=== PATIENT | female | born 1935 | race Caucasian/White ===

== ENCOUNTER → 2018-03-21 09:20 | Outpatient (CLI) | payer MEDICARE, OTHER, SELFPAY ==
--- NOTE | 2018-03-21 09:23 | RAD_ITS ---
STUDY: X-RAY CHEST REASON FOR EXAM: Female, 82 years old. TECHNIQUE: PA and lateral chest COMPARISON: 05/15/2017 FINDINGS: The lungs are clear and expanded. Normal cardiomediastinal silhouette, yamilka and pleural margins. No acute osseous or upper abdominal process. RAD/Chest PA and Lateral IMPRESSION: No acute cardiopulmonary process. Electronically Signed: Yosi Lemon, at 17:26 EDT Tel , Service support ,
== END ==
PROVIDERS: Family Provider Internal Medicine; PCP Internal Medicine; Visit Provider Internal Medicine Cardiovascular Disease
DX: R06.02 Shortness of breath (principal)
CPT/HCPCS: 71046

== ENCOUNTER → 2018-04-06 06:21 | Outpatient (CLI) | payer MEDICARE, OTHER, SELFPAY ==
--- NOTE | 2018-04-06 20:49 | STRESSREP ---
Stress Test Report Date: 04/06/2018 Procedure: Pharmacologic stress nuclear imaging study Indications: Shortness of breath/dyspnea on exertion Consent: Per the patient Procedure: The patient underwent pharmacologic (Regadenoson) evaluation with a peak heart rate of 103 beats per minute (73 predicted maximal heart rate) and a peak blood pressure of 140/60 mmHg. The baseline ECG demonstrated normal sinus rhythm; right bundle branch block. The peak pharmacologic ECG demonstrated no obvious ECG changes. There were no cardiac dysrhythmias pretest, during pharmacologic infusion, or recovery. There was no complaint of chest discomfort during pharmacologic infusion or recovery. The examination was discontinued secondary to completion of protocol. Impression: 1. Pharmacologic (Regadenoson) evaluation 2. Peak pharmacologic ECG with no obvious ECG changes. 3. There were no cardiac dysrhythmias pretest, during pharmacologic infusion, or recovery 4. Nuclear images pending Myocardial perfusion imaging study: Technique: The patient was injected with 11.6 millicuries of technetium 99m Cardiolite and subsequently rest SPECT Cardiolite nuclear imaging was obtained in the horizontal long, vertical long, and short axis views. The patient underwent pharmacologic (Regadenoson) evaluation with a peak heart rate of 103 beats per minute (73 % percent predicted maximal heart rate) and a peak blood pressure of 140/60 mmHg. The patient was injected with 33.7 millicuries of technetium 99m Cardiolite and subsequently stress SPECT Cardiolite nuclear imaging was obtained in the horizontal long, vertical long, and short axis views. A gated Cardiolite study at peak stress was obtained. Interpretation: Rest and stress SPECT Cardiolite nuclear imaging status post realignment, normalization, and attenuation correction demonstrate relative uniform tracer uptake and myocardial perfusion appearing within normal limits. There is end systolic thickening and brightening. The gated Cardiolite study demonstrates myocardial thickening and inward wall motion. The reported LVEF is 77 %. Impression: 1. Rest and stress SPECT Cardiolite nuclear imaging demonstrate relative uniform tracer uptake and myocardial perfusion appearing within normal limits. 2. The gated Cardiolite study reports an LVEF of 77 %. This note was generated with [employer] software. It may contain incorrect words, spelling, and punctuation that were not noted in checking the note before signing.
== END ==
PROVIDERS: Family Provider Internal Medicine; PCP Internal Medicine; Visit Provider Internal Medicine Cardiovascular Disease
DX: R06.02 Shortness of breath (principal)
CPT/HCPCS: 78452; 93017; A9500; A4216; J2785

== ENCOUNTER → 2018-10-18 | Outpatient (CLI) | payer MEDICARE, OTHER, SELFPAY ==
[2018-10-09 09:48] VITALS: BMI 29.8
--- NOTE | 2018-10-18 09:47 | CDU_ITS ---
Reason For Study: bruit Rt. Velocities/BP Lt. Velocities/BP Prox CCA 77.3/16.0 cm/sec. Prox CCA 60.5/16.3 cm/sec. Mid CCA 57.8/13.4 cm/sec. Mid CCA 53.2/15.1 cm/sec. Dist CCA 48.6/13.4 cm/sec. Dist CCA 59.3/12.6 cm/sec. Prox ICA 141.2/22.5 cm/sec. Prox ICA 137.5/27.9 cm/sec. Mid ICA 139.4/20.6 cm/sec. Mid ICA 110.1/26.1 cm/sec. Dist ICA 143.0/33.4 cm/sec. Dist ICA 88.2/24.3 cm/sec. Rt. ICA/CCA = 2.5. Lt. ICA/CCA = 2.6. Prox ECA 111.2/9.5 cm/sec. Prox ECA 148.5/15.2 cm/sec. Rt. Vert. 65.4/17.6 cm/sec. Lt. Vert. 42.8/11.6 cm/sec. Right Extracranial There is heterogeneous, irregular atherosclerotic plaque noted in the right common carotid artery. There is heterogeneous, irregular atherosclerotic plaque noted in the right internal carotid artery. There is heterogeneous, irregular atherosclerotic plaque noted in the right external carotid artery. Antegrade flow is noted in the right vertebral artery. Left Extracranial There is heterogeneous, irregular atherosclerotic plaque noted in the left common carotid artery. There is heterogeneous, irregular atherosclerotic plaque noted in the left internal carotid artery. There is heterogeneous, irregular atherosclerotic plaque noted in the left external carotid artery. Antegrade flow is noted in the left vertebral artery. Procedure Carotid Duplex [id number]. The exam was diagnostic. Exam performed in department. Interpretation Summary Irregular calcific plague right common carotid, proximal internal and external carotids. 50-69% stenosis right internal carotid <50% stenosis right external carotid Irregular calcific plague left common carotid, internal carotid and external carotids. 50-69% stenosis left internal carotid <50% stenosis left external carotid Patent and antegrade vertebrals bilaterally Ordering Physician: Swapna Smith Performed By: Philip Gonzales RVT
== END | disposition home or self-care (01) ==
LOC: CVS 09:46
PROVIDERS: Family Provider Internal Medicine; PCP Internal Medicine; Referring Provider Physician Assistant Medical; Visit Provider Physician Assistant Medical
DX: R42 Dizziness and giddiness (principal)
CPT/HCPCS: 93880

== ENCOUNTER → 2018-11-21 | Outpatient (CLI) | payer MEDICARE, OTHER, SELFPAY ==
[2018-11-21 09:46] VITALS: BMI 29.6
[2018-11-21 12:10] LABS: Anion Gap 5 (5-15); BUN 25 mg/dL (7-18); BUN/Creat Ratio 19.4 RATIO (10-20); Calcium,Total 9.4 mg/dL (8.5-10.1); Chloride 107 mmol/L (98-107); Creatinine, Serum 1.29 mg/dL (0.55-1.02); EST Glomerular Filtration Rate 42 mL/min (>60); Est Glom Filt Rate - Afr Amer 51 mL/min (>60); Glucose 115 mg/dL (74-106); Magnesium 1.8 mg/dL (1.6-2.6); Potassium 3.9 mmol/L (3.5-5.1); Sodium Level 138 mmol/L (136-145)
== END | disposition home or self-care (01) ==
LOC: LAB 10:24
PROVIDERS: Family Provider Internal Medicine; PCP Internal Medicine; Referring Provider Physician Assistant Medical; Visit Provider Physician Assistant Medical
DX: I10 Essential (primary) hypertension (principal)
CPT/HCPCS: 36415; 80048; 83735

== ENCOUNTER 2019-03-21 14:00 | Outpatient (RCR) | payer MEDICARE, OTHER, SELFPAY ==
[2019-01-30 07:15] VITALS: BMI 29.4
--- NOTE | 2019-02-07 15:46 | HP.PTEVAL ---
Patient's Visit Information DICK ARTIS is a 83 year old F referred to Physical Therapy by INDIRA Chamorro with a diagnosis of MUSCLE SPASMS. Date of Evaluation: 02/07/19 Physical Therapist: Eric Page, PT, Cert MDT, OCS - Visit Plan Frequency: 2x /Week Duration: 4 Weeks Plan: PT INTERVENTIONS MODALTIES ,MANUAL THERAPY CERVICAL TRACTION, CERVICAL POSTURAL EX'S , - Subjective Findings: This 83 y/o female presents to physical therapy with muscle spasms. Patient developed left arm pain and pins/needles/parathsia about 1 week. Patient had no predisposing factors.Pateint symptoms located left shoulder to hand. Patient also has noticed weakness right shoulder unable to lift coffe cup.Aggravating factors looking up ,lifting heavy ,night. Pateint symptoms affect sleeping. Patient alleviating factors CP. Patient seen PA at urgent care. recommended PT . Plan to see family DR next week. Denies SOLORIO/dizziness/nausea/tinnitus. Patei nt has no TX. Patient has no trauma. Patient symptoms in cervical and arms affects QOL and function at home. SOCIAL: . VOCATION: retired - Pain Left Neck Pain Intensity (Out of 10): N/A Left Shoulder Pain Intensity (Out of 10): 6 Pain Intensity Range: 10 Comment: to hand - Objective POSTURE: mild foward posture. PALPATION: unremarkable. NEURO: c/o pins/needles numbess in left arm,reflexes C5-6-7 3/3. AROM: shoulder flexion 90 degrees right ,abd 70 degrees otherwise WFL compared to left WNL. MMT: bicep/tricep 4/5 bilateral wrist flexors/extensor 4/5,deltoid/RTC 3/5 supraspinatous 3+/5. [employer] STRENGTH: 42# dynamotor. CERVICAL ROM: flexion min loss,rotation /lateral flexion mod ,extension mod increases symptoms - Special Tests C/S Radiculapathy - Left Upper limb tension test: Positive C/S Radiculapathy - Right Upper limb tension test: Negative C/S Radiculapathy - Left Spurlings: Positive C/S Radiculapathy - Right Spurlings: Negative C/S Radiculapathy - Left Cervical distraction: Negative C/S Radiculapathy - Right Cervical distraction: Negative C/S Radiculapathy - Left Relief test: Negative Sharp Clary: Negative Vertebral Artery Test: Negative Alar Ligament Test: Negative Cervical Sitting: Protrusion - Mechanical Response: No effect Cervical Sitting: Protrusion - Symptoms During Testing: Increases Cervical Sitting: Protrusion - Symptoms After Testing: Worse Comments:: left arm Cervical Sitting: Retraction - Mechanical Response: No effect Cervical Sitting: Retraction - Symptoms During Testing: Increases Cervical Sitting: Retraction - Symptoms After Testing: Worse Comments:: left arm Cervical Sitting: Retraction-Extension - Mechanical Response: No effect Cerv Sitting: Retraction-Extension - Symptoms During Testing: Increases Cerv Sitting: Retraction-Extension - Symptoms After Testing: Worse Comments:: left arm - Goals Goal 1:: Patient to be Independant with HEP. Goal Time Frame: 4-6 Weeks Goal 2:: Patient to improve posture for ADL'S with min limations Goal Time Frame: 4-6 Weeks Goal 3:: Patient to decrease cervical radicular symptoms by 50% or greater to improve function. Goal Time Frame: 4-6 Weeks Goal 4:: Patient to improve neck owsestry score by 5 points or greater to improve function. Goal Time Frame: 4-6 Weeks Goal 5:: Patient to improve cervical ROM for function of recovery Goal Time Frame: 4-6 Weeks - Rehabilitation Potential Physical Therapy Diagnosis: This patient has cervical radiculopathy with symptoms radiating in left arm with parathesia/pins/needles with extension affects sleeping ,also patient has right shoulder RTC /deltoid weakness with pain thus benifit from skilled PT. Rehabilitation Potential: Good - Anticipated Interventions Patient/Client Instruction: Educate patient on: Condition, Plan of Care For the Purpose of:: To decrease pain, To increase ROM, To improve muscle performance and motor function, To increase tolerance to activity/condition/position, To improve ability of physical actions for home/community/work/leisure, To improve health of tissue, To decrease soft tissue restriction, To increase flexibility/ROM, To reduce risk of recurrence, To improve ability to perform tasks related to life management Therapeutic Exercise to Include: Strength training, Postural training, Flexibilty training, Active ROM For the Purpose of:: To decrease pain, To increase ROM, To improve muscle performance and motor function, To increase tolerance to activity/condition/position, To improve performance and independence with ADL's, To decrease level of supervision to perform tasks, To improve ability of physical actions for home/community/work/leisure, To improve gait and locomotor functions, To improve health of tissue, To increase flexibility/ROM Manual Therapy Techniques to Include: Other Comment: TRACTION CERVICAL For the Purpose of:: To decrease pain, To increase ROM, To improve health of tissue, To decrease soft tissue restriction, To increase flexibility/ROM TENS: Yes IF ES: Yes Cryotherapy (ice pack, ice massage): Yes Thermo therapy (hot pack): Yes For the Purpose of:: To decrease pain, To increase ROM, To improve health of tissue, To decrease soft tissue restriction Thank you for the opportunity to evaluate your patient. For Medicare and Medicare HMO plans, please review the plan of care and approve it. It will need to be FAXED BACK to us at [phone] for Medicare purposes. For Medicare only, by signing this I certify the plan of care. Please let me know if there are questions or concerns regarding this plan of care. Physician Signature: Date:
--- NOTE | 2019-03-07 11:58 | HP.PTREVAL_ITS ---
INDIRA Chamorro, It has been my pleasure to treat DICK ARTIS over the last 8 visits for MUSCLE SPASMS. Please see the progress note below for an update on the physical therapy plan of care! Subjective: Doing better .seen wants to cont 2 more wks Objective/Function: POSTURE: mild foward posture. NEURO: c/o parathesia fingers absent today,reflexes C5-6-7 2/3. CERVICAL ROM: flexion min ,lateral flexion/rotation increase in arm to left. -ANR Plan Plan: PT INTERVENTIONS X/WK FOR 2WEEKS MODALTIES ,MANUAL THERAPY CERVICAL TRACTION, CERVICAL POSTURAL EX'S , Goals Goal 1:: Patient to be Independant with HEP. Goal Time Frame: 4-6 Weeks Goal Progress: Progressing Goal 2:: Patient to improve posture for ADL'S with min limations Goal Time Frame: 4-6 Weeks Goal Progress: Progressing Goal 3:: Patient to decrease cervical radicular symptoms by 50% or greater to improve function. Goal Time Frame: 4-6 Weeks Goal Progress: Progressing Goal 4:: Patient to improve neck owsestry score by 5 points or greater to improv e function. Goal Time Frame: 4-6 Weeks Goal 5:: Patient to improve cervical ROM for function of recovery Goal Time Frame: 4-6 Weeks Anticipated Interventions Patient/Client Instruction: Educate patient on: Condition, Plan of Care For the Purpose of:: To decrease pain, To increase ROM, To improve muscle performance and motor function, To increase tolerance to activity/condition/position, To improve ability of physical actions for home/community/work/leisure, To improve health of tissue, To decrease soft tissue restriction, To increase flexibility/ROM, To reduce risk of recurrence, To improve ability to perform tasks related to life management Therapeutic Exercise to Include: Strength training, Postural training, Flexibilty training, Active ROM For the Purpose of:: To decrease pain, To increase ROM, To improve muscle performance and motor function, To increase tolerance to activity/condition/position, To improve performance and independence with ADL's, To decrease level of supervision to perform tasks, To improve ability of physical actions for home/community/work/leisure, To improve gait and locomotor functions, To improve health of tissue, To increase flexibility/ROM Manual Therapy Techniques to Include: Other Comment: TRACTION CERVICAL For the Purpose of:: To decrease pain, To increase ROM, To improve health of tissue, To decrease soft tissue restriction, To increase flexibility/ROM TENS: Yes IF ES: Yes Cryotherapy (ice pack, ice massage): Yes Thermo therapy (hot pack): Yes For the Purpose of:: To decrease pain, To increase ROM, To improve health of tissue, To decrease soft tissue restriction Please do not hesitate to contact me at [phone] by phone or if you have questions or concerns regarding this new plan of care! Sincerely, Eric Pgae, PT, Cert MDT, OCS
--- NOTE | 2019-05-08 10:09 | HP.PTDCNRP_ITS ---
HP - Discharge Summary (1) - Patient Information DICK ARTIS was seen in my office for initial evaluation on 02/07/19. The following Plan of Care was established for this patient: Initial Frequency: 2x /Week Initial Duration: 4 Weeks - Anticipated Interventions Patient/Client Instruction: Educate patient on: Condition, Plan of Care For the Purpose of:: To decrease pain, To increase ROM, To improve muscle performance and motor function, To increase tolerance to activity/condition/position, To improve ability of physical actions for home/community/work/leisure, To improve health of tissue, To decrease soft tiss ue restriction, To increase flexibility/ROM, To reduce risk of recurrence, To improve ability to perform tasks related to life management Therapeutic Exercise to Include: Strength training, Postural training, Flexibilty training, Active ROM For the Purpose of:: To decrease pain, To increase ROM, To improve muscle performance and motor function, To increase tolerance to activity/condition/position, To improve performance and independence with ADL's, To decrease level of supervision to perform tasks, To improve ability of physical actions for home/community/work/leisure, To improve gait and locomotor functions, To improve health of tissue, To increase flexibility/ROM Manual Therapy Techniques to Include: Other Comment: TRACTION CERVICAL For the Purpose of:: To decrease pain, To increase ROM, To improve health of tissue, To decrease soft tissue restriction, To increase flexibility/ROM TENS: Yes IF ES: Yes Cryotherapy (ice pack, ice massage): Yes Thermo therapy (hot pack): Yes For the Purpose of:: To decrease pain, To increase ROM, To improve health of tissue, To decrease soft tissue restriction This patient was last seen in our office . Pertinent comments regarding their Physical therapy will appear below: Patient seen for PT for muscle spasms in cervical focusing on manual therapy STM/TRACTION ,MODALTIES AND POSTURALE X'S At this point I will be discontinuing this patient from physical therapy. I would be happy to see this patient again in the future if found appropriate by the physician. Thank you! Eirc Page, PT, Cert MDT, OCS
== END 2019-03-21 19:00 | disposition home or self-care (01) ==
LOC: PT 14:00
PROVIDERS: Family Provider Internal Medicine; PCP Internal Medicine; Referring Provider Physician Assistant Surgical; Visit Provider Physician Assistant Surgical
DX: M62.838 Other muscle spasm (principal)
CPT/HCPCS: 97012; 97035; 97140; 97162

== ENCOUNTER → 2020-01-28 09:38 | Outpatient (CLI) | payer MEDICARE, OTHER, SELFPAY ==
[2020-01-21 13:34] VITALS: BMI 30.2
[2020-01-28 10:52] LABS: AST(SGOT) 18 U/L (15-37); Alanine Aminotransfer ALT/SGPT 25 U/L (13-56); Albumin, Serum 3.5 g/dL (3.2-5.0); Alkaline Phosphatase 80 U/L (45-117); Bilirubin, Direct 0.13 mg/dL (0.00-0.30); Cholesterol 182 mg/dL (200); Globulin 3.5 g/dL (2.2-4.2); High Density Lipoprotein 41 mg/dL; Triglycerides 259 mg/dL; Very Low Density Lipoprotein 52 mg/dL (5-40)
== END ==
PROVIDERS: PCP Internal Medicine; Referring Provider Internal Medicine Cardiovascular Disease; Visit Provider Internal Medicine Cardiovascular Disease
DX: E78.00 Pure hypercholesterolemia, unspecified (principal)
CPT/HCPCS: 36415; 80061; 80076

== ENCOUNTER → 2020-02-12 14:34 | Outpatient (CLI) | payer MEDICARE, OTHER, SELFPAY ==
[2020-01-21 13:34] VITALS: BMI 30.2
[2020-02-12 14:51] LABS: Hematocrit 41.5 % (37-47); Hemoglobin 13.5 g/dL (12.0-15.0); Mean Corp Hgb Conc 32.5 g/dL (32-36); Mean Corpuscular Hgb 31.8 pg (27.0-32.0); Mean Corpuscular Volume 97.6 fL (81-99); Mean Platelet Vol. 10.2 fl (6.2-12.0); Platelet Count 215 K/mm3 (150-450); RBC Distribution Width CV 13.4 % (11.6-14.6); RBC Distribution Width SD 48.1 fl (35.1-43.9); Red Blood Count 4.25 M/mm3 (4.2-5.4); White Blood Count 7.5 K/mm3 (4.4-11.0)
[2020-02-12 15:31] LABS: BNP,B-Type NATRIURETIC PEPTIDE 86.7 pg/mL (0-100)
[2020-02-12 15:40] LABS: Anion Gap 7 (5-15); BUN 31 mg/dL (7-18); BUN/Creat Ratio 22.1 RATIO (10-20); Calcium,Total 8.9 mg/dL (8.5-10.1); Chloride 110 mmol/L (98-107); EST Glomerular Filtration Rate 38 mL/min (>60); Est Glom Filt Rate - Afr Amer 46 mL/min (>60); Glucose 129 mg/dL (74-106); Potassium 4.5 mmol/L (3.5-5.1); Sodium Level 141 mmol/L (136-145); T4 Total, Thyroxin 9.6 ug/dL (4.8-13.9); Thyroid Stim Hormone (TSH) 1.76 uIU/mL (0.358-3.74)
== END ==
PROVIDERS: PCP Internal Medicine; Referring Provider Physician Assistant Medical; Visit Provider Physician Assistant Medical
DX: R60.0 Localized edema (principal); R06.02 Shortness of breath; R60.9 Edema, unspecified; R63.5 Abnormal weight gain
CPT/HCPCS: 36415; 80048; 83880; 84436; 84443; 85027

== ENCOUNTER 2020-08-14 15:32 | Outpatient (RCR) | payer MEDICARE, SELFPAY ==
[2020-01-21 13:34] VITALS: BMI 30.2
== END 2020-08-14 23:59 ==
LOC: IMMUN 15:32
PROVIDERS: PCP Internal Medicine; Visit Provider Family Medicine
DX: Z23 Encounter for immunization (principal)
CPT/HCPCS: 0011A; 0012A; 91301

== ENCOUNTER → 2020-08-26 09:23 | Outpatient (CLI) | payer MEDICARE, SELFPAY ==
[2020-01-21 13:34] VITALS: BMI 30.2
--- NOTE | 2020-08-26 09:25 | ECHOD_ITS ---
Reason For Study: Severe Edema in Feet Procedure This was a 2D Doppler, Color Flow transthoracic echocardiogram. The exam was of adequate technical quality. Exam performed in department. Left Ventricle Normal LV size. Left ventricular systolic function is normal. The estimated ejection fraction is 70 %. Diastolic function is indeterminate. No regional wall motion abnormalities noted. Right Ventricle Normal RV size. Normal systolic function. Atria Normal left atrium. Normal right atrium. No doppler evidence for ASD. Mitral Valve There is no mitral annular calcification. Normal mitral valve. Trivial mitral valve insufficiency. Tricuspid Valve Normal tricuspid valve. Trivial tricuspid valve insufficiency. Unable to estimate RV systolic pressure due to insufficient tricuspid regurgitant envelope. Aortic Valve Trisinus/trileaflet aortic valve. Normal aortic valve. Pulmonic Valve The pulmonic valve is not well visualized. Trivial pulmonic valve insufficiency. Great Vessels The aortic root is not well visualized. Pericardium/Pleural Trivial pericardial effusion. There are no echocardiographic indications of cardiac tamponade. MMode/2D Measurements & Calculations LVIDd: 3.8 cm IVSd: 0.86 cm Ao root diam: 3.5 cm LVIDs: 2.1 cm LVPWd: 1.0 cm LA dimension: 3.2 cm FS: 45.2 % LAV(MOD-bp): 35.3 ml LA A4 area: 13.0 cm2 RA A4 area: 12.2 cm2 LAV(MOD-bp) Indexed: 19.8 ml/m2 LAV(MOD-sp2): 36.6 ml LAV(MOD-sp4): 32.2 ml Time Measurements MV dec time: 0.37 sec Doppler Measurements & Calculations MV E max pantera: 72.8 cm/sec Lat Peak E' Pantera: 5.4 cm/sec Med Peak E' Pantera: 7.0 cm/sec MV A max pantera: 123.5 cm/sec E/E' lat: 13.6 E/E' med: 10.4 MV E/A: 0.59 MV V2 max: 133.9 cm/sec MV P1/2t max pantera: 79.9 cm/sec Ao V2 max: 95.0 cm/sec MV max P.2 mmHg MV P1/2t: 110.5 msec Ao max P.6 mmHg MV V2 mean: 71.0 cm/sec MV dec slope: 211.9 cm/sec2 MV mean P.4 mmHg MVA(P1/2t): 2.0 cm2 MV V2 VTI: 37.7 cm LV V1 max: 61.2 cm/sec PA V2 max: 86.7 cm/sec LV V1 max P.5 mmHg Interpretation Summary Left ventricular systolic function is normal. The estimated ejection fraction is 70 %. Trivial mitral valve insufficiency. Trivial tricuspid valve insufficiency. Trivial pulmonic valve insufficiency. Trivial pericardial effusion. There are no echocardiographic indications of cardiac tamponade. Unable to estimate RV systolic pressure due to insufficient tricuspid regurgitant envelope. Diastolic function is indeterminate. Ordering Physician: Rolly Smith Referring Physician: Anu Mortensen M.D. Performed By: Antoine Fonseca RCS
== END ==
PROVIDERS: PCP Internal Medicine; Referring Provider Internal Medicine Cardiovascular Disease; Visit Provider Internal Medicine Cardiovascular Disease
DX: R06.02 Shortness of breath (principal); I10 Essential (primary) hypertension; E78.5 Hyperlipidemia, unspecified; R60.0 Localized edema
CPT/HCPCS: 93306

== ENCOUNTER → 2020-10-22 08:13 | Outpatient (CLI) | payer MEDICARE, SELFPAY ==
[2020-10-20 14:21] VITALS: BMI 30.3
[2020-10-22 10:01] LABS: AST(SGOT) 14 U/L (15-37); Alanine Aminotransfer ALT/SGPT 22 U/L (13-56); Albumin, Serum 3.5 g/dL (3.2-5.0); Alkaline Phosphatase 79 U/L (45-117); Bilirubin, Direct 0.18 mg/dL (0.00-0.30); Cholesterol 155 mg/dL (200); Globulin 3.6 g/dL (2.2-4.2); High Density Lipoprotein 40 mg/dL; Protein, Total 7.1 g/dL (6.4-8.2); Triglycerides 169 mg/dL; Very Low Density Lipoprotein 34 mg/dL (5-40)
== END ==
PROVIDERS: PCP Internal Medicine; Referring Provider Internal Medicine Cardiovascular Disease; Visit Provider Internal Medicine Cardiovascular Disease
DX: E78.5 Hyperlipidemia, unspecified (principal)
CPT/HCPCS: 36415; 80061; 80076

== ENCOUNTER 2021-02-03 14:26 | Emergency (ER) | payer MEDICARE, SELFPAY ==
[2020-10-20 14:21] VITALS: BMI 30.3
[2021-02-03] VITALS (8 sets, daily range): BP systolic 165–197; BP diastolic 59–117; PULSE 63–93; RESP 16–22; TEMP 36.4–36.9; O2SAT 93–97; BMI 30.6
--- NOTE | 2021-02-03 15:43 | CT_ITS ---
HISTORY: left and anterior neck swelling s/p L CEA EXAMINATION: CT Soft Tissue Neck W/ Contrast Injection TECHNIQUE: Helically acquired images were obtained of the neck following IV contrast. A radiation dose optimization technique was used for this scan. IV Contrast dosage and agent: 75mL [id number] COMPARISON: CTA neck 05/08/17 FINDINGS: NASOPHARYNX: Unremarkable. SUPRAHYOID NECK: Unremarkable oropharynx, oral cavity, parapharyngeal space, and retropharyngeal space. INFRAHYOID NECK: Unremarkable larynx, hypopharynx, and supraglottis. THYROID: No focal lesions. SALIVARY GLANDS: Unremarkable. LYMPH NODES: No cervical or supraclavicular lymphadenopathy. VASCULAR STRUCTURES: Low-attenuation well-defined collection anterior to the left carotid artery and internal jugular vein extending from above the hyoid bone to the level of the larynx between the left submandibular gland and left sternocleidomastoid muscle, measuring 3.9 x 2.8 x 1.5 cm. No internal gas bubbles the left internal carotid artery shows no significant stenosis. VISUALIZED PORTIONS OF THE ORBITS, PARANASAL SINUSES, MASTOID AIR CELLS AND SKULL BASE: Unremarkable. BONES: Unremarkable. THORACIC INLET: Clear lung apices. CT/Soft Tissue Neck WITH Contrast IMPRESSION: Low-attenuation collection in the left neck anterior to the left carotid artery with dimensions as above. Findings may represent a organized hematoma or seroma. Infected collection cannot be excluded. Individualized dose optimization techniques were used for this CT. at 1024 Reported and signed by: Gaston Bowles MD Electronically Signed: Gaston Bowles MD at 17:12 EDT Tel , Service support ,
[2021-02-03 16:17] LABS: Absolute Lymphocyte Count 1.87 X10^3/uL (0.83-4.51); Absolute Neutrophil Count 5.9 X10^3/uL (2.0-7.7); Basophil# 0.03 X10^3/uL; Basophil% 0.3 % (0-1); Eosinophil# 0.15 X10^3/uL; Eosinophils% 1.7 % (0-5); Hematocrit 39.2 % (37-47); Hemoglobin 12.7 g/dL (12.0-15.0); Lymphocyte # 1.87 X10^3/ul (0.83-4.51); Lymphocyte % 21.4 % (19-41); Mean Corp Hgb Conc 32.4 g/dL (32-36); Mean Corpuscular Hgb 31.4 pg (27.0-32.0); Mean Platelet Vol. 10.1 fl (6.2-12.0); Monocyte# 0.72 X10^3/uL; Monocyte% 8.3 % (0-10); NRBC Flagged by Analyzer 0 % (0-5); Neutrophil % 67.7 % (47-70); Platelet Count 225 K/mm3 (150-450); RBC Distribution Width CV 13.8 % (11.6-14.6); RBC Distribution Width SD 49.2 fl (35.1-43.9); Red Blood Count 4.04 M/mm3 (4.2-5.4); White Blood Count 8.7 K/mm3 (4.4-11.0)
[2021-02-03 16:23] LABS: Anion Gap 7 (5-15); BUN 49 mg/dL (7-18); BUN/Creat Ratio 28.7 RATIO (10-20); Calcium,Total 9.5 mg/dL (8.5-10.1); Chloride 103 mmol/L (98-107); Creatinine, Serum 1.71 mg/dL (0.55-1.02); EST Glomerular Filtration Rate 30 mL/min (>60); Est Glom Filt Rate - Afr Amer 37 mL/min (>60); Estimated Creatinine Clearance 19.72 ml/min; Glucose 102 mg/dL (74-106); Potassium 4.1 mmol/L (3.5-5.1); Sodium Level 139 mmol/L (136-145)
--- NOTE | 2021-02-03 16:34 | EX.ED.DYSGE1 ---
HPI History of Present Illness Chief Complaint: Shortness of Breath Informant: patient Onset/Context/Timing Onset: Days (several) Context: Gradual Onset Quality: swollen and sore Location: neck to the left and beneath chin in center Current Severity: Moderate Maximum Severity: Moderate Worsened by: nothing Relieved by: nothing Associated Symptoms Associated Symptoms: Shortness of breath due to pressure from the swelling in her neck Narrative Narrative: Patient had a left carotid endarterectomy 1 week ago. She states over the last several days she has had waxing and waning swelling in the area of the surgical site as well as beneath her chin in the middle. She states the swelling in this area has been making her feel short of breath. It has been worse at night when she lies down, but this morning she states it was persistent and has been so all day. She denies any symptoms in her chest. She denies any fevers or chills. The pain is not severe it is more the swelling that feels like it is the issue. It does not hurt to swallow. [facility] Medical History Bilateral carotid artery stenosis Claudication Diverticulosis Dyslipidemia Essential hypertension Limb weakness Neck and back pain RLS (restless legs syndrome) Shoulder pain TIA (transient ischemic attack) Home Medications atorvastatin 40 mg PO QHS 02/22/16 [History Last Taken 05/06/17 08:00] clopidogrel 75 mg PO DAILY 02/22/16 [History Last Taken 05/06/17 08:00] multivitamin with folic acid 1 tab PO DAILY 02/22/16 [History Last Taken 05/06/17 08:00] pramipexole 2 tab PO QHS 02/22/16 [History Last Taken 05/06/17 22:00] spironolactone 25 mg PO DAILY 02/22/16 [History Last Taken 05/06/17 08:00] losartan-hydrochlorothiazide 1 ea PO DAILY 05/07/17 [History Last Taken 05/06/17 08:00] albuterol sulfate 90 mcg/actuation aerosol inhaler 2 puff INHALATION BID PRN g 03/16/18 [History Last Taken Unknown] cholecalciferol (vitamin D3) 25 mcg (1,000 unit) tablet 2,500 unit PO DAILY tab 10/09/18 [History Last Taken Unknown] carvedilol 12.5 mg tablet 12.5 mg PO BID #180 tab 01/28/21 [Rx Last Taken Unknown] furosemide 40 mg tablet 40 mg PO DAILY #30 tab 01/28/21 [Rx Last Taken Unknown] Allergy/AdvReac Type Severity Reaction Status Date / Time lisinopril Allergy Unknown Verified 02/03/21 14:42 aspirin AdvReac Upset Verified 02/03/21 14:42 Stomach Family History Mother Heart disease Surgical History History of basal cell carcinoma excision History of carotid angioplasty History of kidney stones History of thyroid surgery History of total hysterectomy Social History Smoking Status: Former smoker how long ago did patient quit smokin years ago alcohol intake: current alcohol intake frequency: holidays/special occasions only details: rare substance use type: does not use caffeine: Yes Type: coffee Number of servings: 1 ROS ROS ED Constitutional Constitutional ED: Denies chills or fever(s) Eyes Eyes: Denies change in vision or diplopia ENT ENT ED: Reports as per HPI and neck pain; Denies rhinorrhea or sore throat Cardiovascular Cardiovascular: Denies chest pain or palpitations Respiratory/Chest Respiratory/Chest: Reports as per HPI and dyspnea; Denies cough Gastrointestinal Gastrointestinal: Denies abdominal pain, diarrhea, nausea or vomiting Genitourinary Genitourinary ED: Denies dysuria or hematuria Musculoskeletal Musculoskeletal: Reports as per HPI and neck pain; Denies back pain Integumentary Denies abscess or rash Neurologic Neurologic: Denies headache(s), paresthesias or weakness Psychiatric Psychiatric: Denies anxiety or suicidal thoughts EXAM Physical Exam Const Vital Signs: 02/03/21 14:27 02/03/21 14:35 02/03/21 14:39 Temperature 98.5 F 97.8 F Temperature Source Temporal Oral Pulse Rate 93 82 Respiratory Rate 16 20 H Respiratory Effort Short of Breath Respiratory Depth Shallow Respiratory Pattern Tachypnea Blood Pressure 197/117 H 180/72 H Blood Pressure Mean 143 108 Pulse Ox 93 97 Oxygen Delivery Method Room Air Room Air Room Air 02/03/21 15:28 02/03/21 16:12 02/03/21 17:00 Temperature 98.0 F 97.8 F 97.8 F Temperature Source Oral Oral Oral Pulse Rate 70 76 81 Respiratory Rate 20 H 19 H 17 Respiratory Effort Respiratory Depth Respiratory Pattern Blood Pressure 190/63 H 178/59 H 172/81 H Blood Pressure Mean 105 98 111 Pulse Ox 95 96 97 Oxygen Delivery Method Room Air Room Air Room Air 02/03/21 17:58 Temperature 98.0 F Temperature Source Oral Pulse Rate 63 Respiratory Rate 17 Respiratory Effort Respiratory Depth Respiratory Pattern Blood Pressure 165/73 H Blood Pressure Mean 103 Pulse Ox 95 Oxygen Delivery Method Room Air Positive well nourished and well developed Constitutional Narrative: Well-appearing, conversive in full sentences without stridor. Able to range neck without difficulty. General Appearance ED: well developed and NAD HEENT Reports moist mucous membranes HEENT Narrative: Clear seal over left neck CEA surgical wound which appears to be healing well without dehiscence, discharge or bleeding, or any erythema. Area is mildly swollen, there is no fluctuance, no firmness or induration or any palpable discrete collection. The swelling extends to the submental area which has very mild erythema, no induration, and is not firm or tense. This is nontender. Intraorally, there is no trismus or abnormality or asymmetry. The patient is edentulous and the gingiva are normal. There is no sublingual fullness/distention or tenderness. No discharge from any salivary ducts. normocephalic and atraumatic Eyes PERRL and EOMs intact bilaterally Neck full ROM and supple Resp normal respiratory effort and clear to auscultation bilaterally Cardio regular rate, regular rhythm and no murmurs GI non-tender and non-distended Auscultation: normoactive bowel sounds Palpation: soft Back/Spine no CVA tenderness General Back: other FROM Extremity normal to inspection General Extremety ED: Negative for edema, pulses abnormal or tenderness General Extremity: Negative for edema or pulses abnormal Neuro oriented x3, CN's II-XII intact bilaterally and no sensory deficits noted Sensorium / Orientation: awake and alert Motor Exam: strength 5/5 throughout Skin no rashes or lesions noted and no wounds MDM MDM MDM Narrative Medical decision making narrative: Patient is no carotid bruit, or purpura there, so I am not as much concerned about a pseudoaneurysm or arterial leak as I am about a possible seroma, infection, etc. She is breathing well and her vital signs are fine except for hypertension. Therefore I think CT of the neck with soft tissues is more appropriate than CT angiography of the neck. Her lab work is fine except for some chronic renal insufficiency. CT showed seroma versus hematoma as noted below. I discussed with the patient's surgeon at [facility], Dr. Erin Robledo. I discussed the patient's stable condition and vital signs, along with the CT and lack of a leukocytosis. She agrees that infections are very uncommon here, and since it does not appear to be infected it probably is not. She agrees with having the patient follow-up closely in the office, I am having her call to see if they can get her an earlier appointment than when she is currently scheduled for. Dr. Robledo agrees with having the patient apply cold compresses regularly. When I discussed this with the patient, she states that she has been applying hot compresses to it, which is probably why she has had worsening. We discussed reasons to return she is comfortable with this plan. Lab Data Labs: Laboratory Results - last 24 hr 02/03/21 02/03/21 16:00 16:00 WBC 8.7 RBC 4.04 L Hgb 12.7 Hct 39.2 MCV 97.0 MCH 31.4 MCHC 32.4 RDW Std Deviation 49.2 H RDW Coeff of Ha 13.8 Plt Count 225 MPV 10.1 Immature Gran % (Auto) 0.600 Neut % (Auto) 67.7 Lymph % (Auto) 21.4 [place] % (Auto) 8.3 Eos % (Auto) 1.7 Baso % (Auto) 0.3 Absolute Neuts (auto) 5.9 Absolute Lymphs (auto) 1.87 Nucleated RBC % 0 Sodium 139 Potassium 4.1 Chloride 103 Carbon Dioxide 29.0 Anion Gap 7 BUN 49 H Creatinine 1.71 H Estim Creat Clear Calc 19.72 Est GFR (MDRD) Af Amer 37 L Est GFR (MDRD) Non-Af 30 L BUN/Creatinine Ratio 28.7 H Glucose 102 Calcium 9.5 Radiography Diagnostic Testing: Radiology Impression Soft Tissue Neck CT 02/03/21 15:43 IMPRESSION: Low-attenuation collection in the left neck anterior to the left carotid artery with dimensions as above. Findings may represent a organized hematoma or seroma. Infected collection cannot be excluded. Individualized dose optimization techniques were used for this CT. at 1714 Reported and signed by: Gaston Bowles MD Electronically Signed: Gaston Bowles MD at 17:12 EDT Tel , Service support , Chest X-Ray 02/03/21 16:50 IMPRESSION: No radiographic evidence of acute cardiopulmonary disease. at 1715 Reported and signed by: Gaston Bowles MD Electronically Signed: Gaston Bowles MD at 17:13 EDT Tel , Service support , Discharge Plan Triage Chief Complaint: Shortness of Breath ED Provider: Guero Holland Dx/Rx/DC Orders Clinical Impression: Postoperative seroma Instructions: ED Seroma, Postsurgical Prescriptions: No Action cholecalciferol (vitamin D3) 1,000 unit tablet 2,500 unit PO DAILY RF: 0 atorvastatin 40 MG tablet 40 mg PO QHS RF: 0 clopidogrel 75 MG tablet 75 mg PO DAILY RF: 0 spironolactone 25 MG tablet 25 mg PO DAILY RF: 0 pramipexole 0.5 MG tablet 2 tab PO QHS RF: 0 multivitamin with folic acid 1 TABLET tablet 1 tab PO DAILY RF: 0 losartan-hydrochlorothiazide 1 EACH tablet 1 ea PO DAILY RF: 0 albuterol sulfate 90 mcg/actuation HFA aerosol inhaler 2 puff INHALATION BID PRN (Reason: Sob &/Or Wheezing) RF: 0 carvedilol 12.5 mg tablet 12.5 mg PO BID Qty: 180 RF: 4 furosemide 40 mg tablet 40 mg PO DAILY Qty: 30 RF: 12 Primary Care Provider: Anu Mortensen Referrals: Erin Robledo [Other] (call for appt to be as soon as possible) Anu Mortensen MD [Primary Care Provider] - Activity Restrictions/Additional Instructions: Apply cold compresses to affected area, not hot Disposition Disposition: Home, Self Care
--- NOTE | 2021-02-03 16:50 | RAD_ITS ---
HISTORY: sob EXAMINATION/TECHNIQUE: XR Chest 2 Views: 2 views COMPARISON: 03/21/18 FINDINGS: LINES/DEVICES: None. LUNGS: Mild lingular and right middle lobe subsegmental atelectasis/fibrosis without pulmonary consolidation, mass, or edema. No pleural effusion or pneumothorax. MEDIASTINUM AND CARDIOVASCULAR STRUCTURES: Cardiac silhouette not enlarged. Central airways and mediastinal contour are unremarkable. BONES AND SOFT TISSUES: No acute bony abnormalities. RAD/Chest PA and Lateral IMPRESSION: No radiographic evidence of acute cardiopulmonary disease. at 1715 Reported and signed by: Gaston Bowles MD Electronically Signed: Gaston Bowles MD at 17:13 EDT Tel , Service support ,
== END 2021-02-03 18:53 | disposition home or self-care (01) ==
PROVIDERS: Emergency Provider Emergency Medicine; PCP Internal Medicine
DX: L76.34 Postprocedural seroma of skin and subcutaneous tissue following other procedure (principal); Y83.8 Other surgical procedures as the cause of abnormal reaction of the patient, or of later complication, without mention of misadventure at the time of the procedure; Y92.9 Unspecified place or not applicable; I10 Essential (primary) hypertension; E78.5 Hyperlipidemia, unspecified; G25.81 Restless legs syndrome; Z79.02 Long term (current) use of antithrombotics/antiplatelets; Z79.899 Other long term (current) drug therapy; Z86.73 Personal history of transient ischemic attack (TIA), and cerebral infarction without residual deficits; Z87.891 Personal history of nicotine dependence; N18.9 Chronic kidney disease, unspecified
CPT/HCPCS: 70491; 71046; 80048; 85025; 99284; Q9967; A4216

== ENCOUNTER → 2021-02-06 09:06 | Outpatient (CLI) | payer MEDICARE, SELFPAY ==
[2021-02-03 14:27] VITALS: BMI 30.6
[2021-02-06 10:11] LABS: Anion Gap 12 (5-15); BUN 41 mg/dL (7-18); BUN/Creat Ratio 28.1 RATIO (10-20); Calcium,Total 9.4 mg/dL (8.5-10.1); Chloride 97 mmol/L (98-107); Creatinine, Serum 1.46 mg/dL (0.55-1.02); EST Glomerular Filtration Rate 36 mL/min (>60); Est Glom Filt Rate - Afr Amer 44 mL/min (>60); Glucose 106 mg/dL (74-106); Sodium Level 136 mmol/L (136-145)
== END ==
PROVIDERS: PCP Internal Medicine; Referring Provider Internal Medicine Cardiovascular Disease; Visit Provider Internal Medicine Cardiovascular Disease
DX: I10 Essential (primary) hypertension (principal); R60.0 Localized edema
CPT/HCPCS: 36415; 80048

== ENCOUNTER → 2021-05-12 09:07 | Outpatient (CLI) | payer MEDICARE, SELFPAY ==
[2021-05-12 10:22] LABS: AST(SGOT) 21 U/L (15-37); Alanine Aminotransfer ALT/SGPT 28 U/L (13-56); Albumin, Serum 3.2 g/dL (3.2-5.0); Alkaline Phosphatase 73 U/L (45-117); Bilirubin, Direct 0.14 mg/dL (0.00-0.30); Cholesterol 177 mg/dL (200); Globulin 3.6 g/dL (2.2-4.2); High Density Lipoprotein 52 mg/dL; Protein, Total 6.8 g/dL (6.4-8.2); Triglycerides 249 mg/dL; Very Low Density Lipoprotein 50 mg/dL (5-40)
== END ==
PROVIDERS: PCP Internal Medicine; Referring Provider Internal Medicine Cardiovascular Disease; Visit Provider Internal Medicine Cardiovascular Disease
DX: E78.5 Hyperlipidemia, unspecified (principal)
CPT/HCPCS: 36415; 80061; 80076

== ENCOUNTER → 2022-06-22 | Outpatient (CLI) | payer MEDICARE, SELFPAY ==
--- NOTE | 2022-06-22 06:57 | ECHOD_ITS ---
Reason For Study: SOB Procedure This was a 2D Doppler, Color Flow transthoracic echocardiogram. The exam was of adequate technical quality. Exam performed in department. Left Ventricle Normal LV size. Mild concentric left ventricular hypertrophy. Left ventricular systolic function is normal. The estimated ejection fraction is 65 %. Stage 2 diastolic dysfunction. No regional wall motion abnormalities noted. Right Ventricle Normal RV size. Normal systolic function. Atria Normal left atrium. Normal right atrium. No doppler evidence for ASD. Mitral Valve There is no mitral annular calcification. Normal mitral valve. Trivial mitral valve insufficiency. Tricuspid Valve Normal tricuspid valve. Trivial tricuspid valve insufficiency. Right ventricular systolic pressure estimated to be 47 mmHg. Aortic Valve Trisinus/trileaflet aortic valve. Normal aortic valve. Pulmonic Valve The pulmonic valve is not well visualized. Trivial pulmonic valve insufficiency. Great Vessels Normal sized aortic root. Pericardium/Pleural No pericardial effusion. MMode/2D Measurements & Calculations LVIDd: 3.8 cm IVSd: 1.4 cm Ao root diam: 2.9 cm LVIDs: 2.0 cm LVPWd: 1.3 cm RVDd: 2.3 cm FS: 48.8 % LAV(MOD-bp): 32.9 ml LVAd ap4: 19.7 cm2 LVAd ap2: 19.3 cm2 LAV(MOD-bp) Indexed: 18.6 ml/m2 LVLd ap4: 6.9 cm LVLd ap2: 7.2 cm LAV(MOD-sp2): 32.4 ml EDV(MOD-sp4): 46.8 ml EDV(MOD-sp2): 42.6 ml LAV(MOD-sp4): 30.1 ml EDV(sp4-el): 48.0 ml EDV(sp2-el): 44.0 ml LVAs ap4: 9.0 cm2 LVAs ap2: 10.2 cm2 LVLs ap4: 6.1 cm LVLs ap2: 6.2 cm ESV(MOD-sp4): 11.2 ml ESV(MOD-sp2): 14.4 ml ESV(sp4-el): 11.4 ml ESV(sp2-el): 14.4 ml EF(MOD-sp4): 76.0 % EF(MOD-sp2): 66.1 % EF(sp4-el): 76.2 % SV(MOD-sp4): 35.6 ml SV(MOD-sp2): 28.2 ml SV(sp4-el): 36.6 ml LA dimension(2D): 4.0 cm LA A4 area: 13.2 cm2 RA A4 area: 10.6 cm2 Time Measurements MV dec time: 0.21 sec Doppler Measurements & Calculations MV E max pantera: 94.8 cm/sec Lat Peak E' Pantera: 6.9 cm/sec Med Peak E' Pantera: 6.2 cm/sec MV A max pantera: 122.1 cm/sec E/E' lat: 13.7 E/E' med: 15.2 MV E/A: 0.78 MV dec slope: 462.3 cm/sec2 Ao V2 max: 106.2 cm/sec LV V1 max: 79.6 cm/sec Ao max P.5 mmHg LV V1 max P.5 mmHg PA V2 max: 86.7 cm/sec TR max pantera: 332.5 cm/sec TR max P.2 mmHg ECHO/Echo Complete Interpretation Summary Left ventricular systolic function is normal. The estimated ejection fraction is 65 %. Mild concentric left ventricular hypertrophy. Trivial mitral valve insufficiency. Trivial tricuspid valve insufficiency. Trivial pulmonic valve insufficiency. Right ventricular systolic pressure estimated to be 47 mmHg. Stage 2 diastolic dysfunction. Ordering Physician: Rolly Smith Referring Physician: Anu Mortensen M.D. Performed By: Danyelle Moya RDCS
--- NOTE | 2022-06-22 14:32 | STRESSREP ---
Stress Test Report Date: 07-23-2021 Procedure: Pharmacologic stress nuclear imaging study Indications: Shortness of breath/dyspnea on exertion Consent: Per the patient Procedure: The patient underwent pharmacologic (Regadenoson 0.4mg ) evaluation with a peak heart rate of 98 beats per minute (72%predicted maximal heart rate) and a resting blood pressure of 166/78 mmHg and a peak blood pressure of 166/78 mmHg. The baseline ECG demonstrated normal sinus rhythm; right bundle branch block pattern. The peak pharmacologic ECG demonstrated no obvious ECG changes. There was a rare PVC pretest and during recovery. There was no complaint of chest discomfort during pharmacologic infusion or recovery. The examination was discontinued secondary to completion of protocol. Impression: 1. Pharmacologic (Regadenoson) evaluation 2. Peak pharmacologic ECG with continued right bundle branch block pattern with no obvious ECG changes. 3. There was a rare PVC pretest and during recovery. 4. Nuclear images pending Myocardial perfusion imaging study: Technique: The patient was injected with 11.0 millicuries of technetium 99m Cardiolite and subsequently rest SPECT Cardiolite nuclear imaging was obtained in the horizontal long, vertical long, and short axis views. The patient underwent pharmacologic (Regadenoson) evaluation with a peak heart rate of 98 beats per minute (72% percent predicted maximal heart rate) and a resting blood pressure of 166/78 mmHg and a peak blood pressure of 166/78 mmHg. The patient was injected with 33.0 millicuries of technetium 99m Cardiolite and subsequently stress SPECT Cardiolite nuclear imaging was obtained in the horizontal long, vertical long, and short axis views. A gated Cardiolite study at peak stress was obtained. Interpretation: Rest and stress SPECT Cardiolite nuclear imaging status post realignment, normalization, and attenuation correction demonstrate relative uniform tracer uptake and myocardial perfusion appearing within normal limits. There is end systolic thickening and brightening. The gated Cardiolite study demonstrates myocardial thickening and inward wall motion. The reported LVEF is 72%. Impression: 1. Rest and stress SPECT Cardiolite nuclear imaging demonstrate relative uniform tracer uptake and myocardial perfusion appearing within normal limits. 2. The gated Cardiolite study reports an LVEF of 72%. This note was generated with [employer] software. It may contain incorrect words, spelling, and punctuation that were not noted in checking the note before signing.
== END | disposition home or self-care (01) ==
LOC: CVS 06:56
PROVIDERS: PCP Internal Medicine; Referring Provider Internal Medicine Cardiovascular Disease; Visit Provider Internal Medicine Cardiovascular Disease
DX: R06.02 Shortness of breath (principal); I65.23 Occlusion and stenosis of bilateral carotid arteries; I10 Essential (primary) hypertension; E78.5 Hyperlipidemia, unspecified; R07.9 Chest pain, unspecified
CPT/HCPCS: 78452; 93017; 93306; A9500; A4216; J2785

== ENCOUNTER 2022-12-09 09:51 | Emergency (ER) | payer MEDICARE, SELFPAY ==
[2022-12-09 09:52] VITALS: BP 160/48; PULSE 65; RESP 14; TEMP 36.1; O2SAT 97; BMI 30.5
--- NOTE | 2022-12-09 10:09 | EX.ED.DYSGE1 ---
HPI History of Present Illness Chief Complaint: Other, Pain/Inj Informant: patient Onset/Context/Timing Onset: Days (2-3) Context: Sudden Onset Timing: Continuous Quality: Sharp Location: Left lower abdomen and low back Worsened by: Nothing Relieved by: Urination, bowel movement Narrative Narrative: Patient presents with left lower abdominal pain and left lower back pain that has been constant for the past 2 to 3 days. Patient states it began rather suddenly. Patient states it is mainly over the left groin and lower abdomen. Patient states it radiates into her left lower back. Patient describes her pain as sharp. Patient states it gets better after urination and after having a bowel movement for several minutes and then returns. Patient states nothing makes it worse. Patient denies any nausea or vomiting. Patient denies any dysuria or hematuria. Patient denies any fevers or chills. Patient denies any diarrhea, melena, or hematochezia. [facility] Medical History Bilateral carotid artery stenosis Claudication Diverticulosis Dyslipidemia Essential hypertension Limb weakness Neck and back pain PAD (peripheral artery disease) Renal cyst RLS (restless legs syndrome) Shoulder pain TIA (transient ischemic attack) Home Medications atorvastatin 40 mg tablet 40 mg PO QHS 02/22/16 [History Last Taken 05/06/17 08:00] clopidogrel 75 mg tablet 75 mg PO DAILY 02/22/16 [History Last Taken 05/06/17 08:00] multivitamin with folic acid 400 mcg tablet 1 tab PO DAILY 02/22/16 [History Last Taken 05/06/17 08:00] pramipexole 0.5 mg tablet 2 tab PO QHS 02/22/16 [History Last Taken 05/06/17 22:00] spironolactone 25 mg tablet 25 mg PO DAILY 02/22/16 [History Last Taken 05/06/17 08:00] albuterol sulfate 90 mcg/actuation aerosol inhaler 2 puff inhalation BID PRN Sob &/Or Wheezing 03/16/18 [History Last Taken Unknown] cholecalciferol (vitamin D3) 25 mcg (1,000 unit) tablet 2,500 unit PO DAILY 10/09/18 [History Last Taken Unknown] furosemide 40 mg tablet 40 mg PO DAILY #90 tabs 01/27/22 [Rx Last Taken Unknown] carvedilol 12.5 mg tablet 12.5 mg PO BID #180 tabs 02/01/22 [Rx Last Taken Unknown] albuterol sulfate 2.5 mg/3 mL (0.083 %) solution for nebulization 2.5 mg inhalation Q4H PRN 05/28/22 [History Last Taken Unknown] ipratropium 0.5 mg-albuterol 3 mg (2.5 mg base)/3 mL nebulization soln 3 ml inhalation Q6H PRN 05/28/22 [History Last Taken Unknown] trazodone 50 mg tablet 50 mg PO DAILY 05/28/22 [History Last Taken Unknown] hydralazine 25 mg tablet 25 mg PO TID #270 tabs 10/07/22 [Rx Last Taken Unknown] benzonatate 100 mg capsule 100 mg PO TID PRN cough 12/06/22 [History Last Taken Unknown] budesonide 0.5 mg/2 mL suspension for nebulization 0.25 mg inhalation TID PRN 12/06/22 [History Last Taken Unknown] losartan 100 mg-hydrochlorothiazide 25 mg tablet 1 tab PO DAILY 12/06/22 [History Last Taken Unknown] metolazone 2.5 mg tablet 2.5 mg PO Q OTHER DAY 12/06/22 [History Last Taken Unknown] ciprofloxacin HCl 500 mg tablet 500 mg PO BID #20 TABLETS 12/09/22 [Rx Last Taken Unknown] metronidazole 500 mg tablet 500 mg PO Q6H #40 tabs 12/09/22 [Rx Last Taken Unknown] Allergy/AdvReac Type Severity Reaction Status Date / Time lisinopril Allergy Unknown Verified 12/09/22 09:54 aspirin AdvReac Upset Verified 12/09/22 09:54 Stomach Family History Mother Heart disease Surgical History History of basal cell carcinoma excision History of carotid angioplasty History of kidney stones History of thyroid surgery History of total hysterectomy Social History Smoking Status: Former smoker how long ago did patient quit smokin years ago alcohol intake: current alcohol intake frequency: holidays/special occasions only details: rare substance use type: does not use caffeine: Yes Type: coffee Number of servings: 1 ROS ROS ED Constitutional Constitutional ED: Denies chills or fever(s) Eyes Eyes: Denies blurry vision or change in vision ENT ENT ED: Denies rhinorrhea or sore throat Cardiovascular Cardiovascular: Denies chest pain or palpitations Respiratory/Chest Respiratory/Chest: Denies cough or dyspnea Gastrointestinal Gastrointestinal: Reports abdominal pain; Denies nausea or vomiting Genitourinary Genitourinary ED: Denies dysuria or hematuria Musculoskeletal Musculoskeletal: Reports back pain; Denies neck pain Integumentary Denies abscess or rash Neurologic Neurologic: Denies headache(s) or weakness Allergic/Immunologic Allergic/Immunologic ED: Denies mouth swelling or urticaria EXAM Physical Exam Const Vital Signs: 12/09/22 09:52 12/09/22 12:24 Temperature 97.0 F L Temperature Source Temporal Pulse Rate 65 70 Respiratory Rate 14 18 Blood Pressure 160/48 H 125/61 H Blood Pressure Mean 85 82 Pulse Ox 97 93 Oxygen Delivery Method Room Air Room Air Positive well nourished and well developed General Appearance ED: well developed HEENT Reports moist mucous membranes Neck supple and no JVD Resp normal respiratory effort Auscultation: wheezes expiratory wheezes (Mild) and throughout Cardio regular rate, regular rhythm and no murmurs GI normal to inspection, nondistended, normoactive bowel sounds Palpation: soft and tender LLQ and suprapubic; Negative for guarding or rebound tenderness present Extremity normal to inspection General Extremety ED: Negative for edema or tenderness General Extremity: Negative for edema Neuro oriented x3, CN's II-XII intact bilaterally and no sensory deficits noted Sensorium / Orientation: alert Motor Exam: strength 5/5 throughout Psych mental status grossly normal Skin no rashes or lesions noted MDM MDM MDM Narrative Medical decision making narrative: Differential diagnosis includes ureteral calculus, diverticulitis, colitis, urinary tract infection, pyelonephritis, bowel obstruction, and perforation. CT scan of the abdomen pelvis will be obtained to assess for ureteral calculus, bowel obstruction, perforation, and diverticulitis. CBC will be obtained to assess for leukocytosis and anemia. Basic metabolic profile will be obtained to assess for renal function and electrolyte abnormality. Urinalysis will be obtained to assess for urinary tract infection and hematuria. History & Record Review Additional record(s) reviewed:: Prior labs Lab Data Attestation: I reviewed the patient's lab results. Lab results narrative: CBC was reviewed. There is a mild anemia with a hemoglobin of 11.5 and hematocrit 35.6. Basic metabolic profile was reviewed. Creatinine was slightly increased at 1.88. BUN was slightly elevated at 47. These were unchanged compared to previous results. Urinalysis was reviewed. There is no evidence of urinary tract infection or hematuria. Labs: Laboratory Results - last 24 hr 12/09/22 12/09/22 12/09/22 10:35 10:35 12:00 WBC 9.1 RBC 3.63 L Hgb 11.5 L Hct 35.6 L MCV 98.1 MCH 31.7 MCHC 32.3 RDW Std Deviation 53.2 H RDW Coeff of Ha 14.8 H Plt Count 160 MPV 11.1 Immature Gran % (Auto) 0.700 Neut % (Auto) 72.5 H Lymph % (Auto) 16.9 L [place] % (Auto) 8.2 Eos % (Auto) 1.4 Baso % (Auto) 0.3 Absolute Neuts (auto) 6.6 Absolute Lymphs (auto) 1.54 Nucleated RBC % 0 Sodium 140 Potassium 4.3 Chloride 105 Carbon Dioxide 28.0 Anion Gap 7 BUN 47 H Creatinine 1.88 H Estim Creat Clear Calc 17.30 Est GFR (MDRD) Af Amer 33 L Est GFR (MDRD) Non-Af 27 L BUN/Creatinine Ratio 25.0 H Glucose 101 Calcium 9.4 Urine Color Straw Urine Clarity Clear Urine pH 8.[address] 1.010 Urine Protein Negative Urine Glucose (UA) Normal Urine Ketones Negative Urine Occult Blood Negative Urine Nitrite Negative Urine Bilirubin Negative Urine Urobilinogen Normal Ur Leukocyte Esterase Negative Urine RBC 0 SEEN Urine WBC 0 SEEN Ur Squamous Epith Cells 0-5 SEEN Urine Bacteria 0 SEEN Urine Mucus 0 SEEN Radiography Diagnostic Testing: Clinical Impression(s) from Imaging Studies Abdomen/Pelvis CT 12/09/22 10:14 IMPRESSION: 1. Multiple small calyceal stones are scattered throughout the left kidney. No hydronephrosis is present. The largest on the left kidney measures 5.4 mm. No radiopaque stones are seen in the ureter and there is no demonstrated left ureteral dilatation or stones in the bladder. 2. 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 Sigmoid diverticulosis Electronically Signed: Rick Lee MD at 11:38 EDT , CT scan of the abdomen pelvis was obtained. There are multiple renal calculi in the left kidney. There is no hydronephrosis or hydroureter. There is no calculus noted in the ureter. There is evidence of sigmoid diverticulosis. This was interpreted by the radiologist and was also independently reviewed by myself. Treatment and Re-Evaluation :: Patient was given a dose of morphine and Zofran. Patient is feeling better on reevaluation. Since the patient is having left lower quadrant tenderness and diverticulosis on her CT scan, we will cover the patient with Cipro and Flagyl for clinical diverticulitis. Patient was instructed to follow-up with her primary care physician in 5 to 7 days. Patient understands and is agreeable with the plan. All questions were answered. Discharge Plan Triage Chief Complaint: Other, Pain/Inj ED Provider: Herrera Thompson Dx/Rx/DC Orders Clinical Impression: Diverticulitis, Abdominal pain, left lower quadrant Instructions: ED Diverticulitis Prescriptions: New metronidazole [metronidazole] 500 mg tablet 500 mg PO Q6H Qty: 40 0RF ciprofloxacin HCl [ciprofloxacin HCl] 500 mg tablet 500 mg PO BID Qty: 20 0RF No Action cholecalciferol (vitamin D3) 1,000 unit tablet 2,500 unit PO DAILY albuterol sulfate 2.5 mg /3 mL (0.083 %) solution for nebulization 2.5 mg inhalation Q4H PRN ipratropium-albuterol 0.5 mg-3 mg(2.5 mg base)/3 mL solution for nebulization 3 ml inhalation Q6H PRN trazodone 50 mg tablet 50 mg PO DAILY budesonide 0.5 mg/2 mL suspension for nebulization 0.25 mg inhalation TID PRN benzonatate 100 mg capsule 100 mg PO TID PRN (Reason: cough) Label Comments: TAKE 1 TO 2 CAPSULES BY MOUTH THREE TIMES DAILY NEEDED FOR COUGH metolazone 2.5 mg tablet 2.5 mg PO Q OTHER DAY Label Comments: TAKE 1 TABLET BY MOUTH ONCE DAILY PRIOR TO LASIX DISCUSSED atorvastatin 40 MG tablet 40 mg PO QHS Label Comments: reduces cholesterol clopidogrel 75 MG tablet 75 mg PO DAILY Label Comments: blood thinner spironolactone 25 MG tablet 25 mg PO DAILY Label Comments: water pill/diuretic pramipexole 0.5 MG tablet 2 tab PO QHS Label Comments: restless leg syndrome multivitamin with folic acid 1 TABLET tablet 1 tab PO DAILY Label Comments: supplement albuterol sulfate 90 mcg/actuation HFA aerosol inhaler 2 puff INHALATION BID PRN (Reason: Sob &/Or Wheezing) Label Comments: BREATHING losartan-hydrochlorothiazide 100-25 mg tablet 1 tab PO DAILY Label Comments: 100/25MG. BLOOD PRESSURE/HEART furosemide 40 mg tablet 40 mg PO DAILY Qty: 90 3RF carvedilol 12.5 mg tablet 12.5 mg PO BID Qty: 180 4RF Rx Instructions: must administer with a meal/food hydralazine 25 mg tablet 25 mg PO TID Qty: 270 3RF Primary Care Provider: Anu Mortensen Referrals: Anu Mortensen MD [Primary Care Provider] - 5-7 Days Disposition Disposition: Home, Self Care
--- NOTE | 2022-12-09 10:14 | CT_ITS ---
STUDY: CT ABDOMEN AND PELVIS WITHOUT CONTRAST REASON FOR EXAM: Female, 87 years old. Left groin, back pain x3 days. Hysterectomy. RADIATION DOSAGE (If Supplied By Facility): CTDIvol = ( 10.69 ) mGy, DLP = ( 480.90 ) mGycm TECHNIQUE: Transaxial images were obtained from the dome of the diaphragm to the symphysis pubis without oral contrast, and without intravenous contrast. Sagittal and coronal images were reconstructed. Individualized dose optimization techniques were used for this CT. 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 Chronic appearing fibrosis and subsegmental atelectasis seen in the medial aspect of the right middle lobe. A smaller focus is seen in the anterior aspect of the left lower lobe. Normal liver. Normal gallbladder and extrahepatic biliary system. Normal spleen. Normal pancreas. Normal bilateral adrenal glands. There is severe cortical atrophy of the right kidney, consistent with chronic medical renal disease. Several small cysts are present in the right kidney unchanged from the prior study. Multiple small calyceal stones are scattered throughout the left kidney. No hydronephrosis is present. The largest on the left kidney measures 5.4 mm. No radiopaque stones are seen in the ureter and there is no demonstrated left ureteral dilatation or stones in the bladder. Normal visualized stomach. Normal small intestine. There are multiple sigmoid colonic diverticula consistent with diverticulosis. The remaining colonic loops are unremarkable. There is non-visualization of the appendix. No free air or free fluid or bowel dilatation is seen. There is no evidence of bowel obstruction. 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 Normal inferior vena cava. Normal retroperitoneum. Normal urinary bladder. There is absence of the uterus consistent with a prior hysterectomy. Normal abdominal wall. There are diffuse degenerative changes of the visualized lumbar spine. CT/Abdomen/Pelvis without Cont IMPRESSION: 1. Multiple small calyceal stones are scattered throughout the left kidney. No hydronephrosis is present. The largest on the left kidney measures 5.4 mm. No radiopaque stones are seen in the ureter and there is no demonstrated left ureteral dilatation or stones in the bladder. 2. 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 Sigmoid diverticulosis Electronically Signed: Rick Lee MD at 11:38 EDT ,
[2022-12-09] MEDS: Ondansetron 4 MG/2 ML Vial IV (10:24)
[2022-12-09] MEDS: Morphine 4 MG/ML Syringe IV (10:24)
[2022-12-09 11:01] LABS: Absolute Lymphocyte Count 1.54 X10^3/uL (0.83-4.51); Absolute Neutrophil Count 6.6 X10^3/uL (2.0-7.7); Basophil# 0.03 X10^3/uL; Basophil% 0.3 % (0-1); Eosinophil# 0.13 X10^3/uL; Eosinophils% 1.4 % (0-5); Hematocrit 35.6 % (37-47); Hemoglobin 11.5 g/dL (12.0-15.0); Lymphocyte # 1.54 X10^3/ul (0.83-4.51); Lymphocyte % 16.9 % (19-41); Mean Corp Hgb Conc 32.3 g/dL (32-36); Mean Corpuscular Hgb 31.7 pg (27.0-32.0); Mean Corpuscular Volume 98.1 fL (81-99); Mean Platelet Vol. 11.1 fl (6.2-12.0); Monocyte# 0.75 X10^3/uL; Monocyte% 8.2 % (0-10); NRBC Flagged by Analyzer 0 % (0-5); Neutrophil % 72.5 % (47-70); Platelet Count 160 K/mm3 (150-450); RBC Distribution Width CV 14.8 % (11.6-14.6); RBC Distribution Width SD 53.2 fl (35.1-43.9); Red Blood Count 3.63 M/mm3 (4.2-5.4); White Blood Count 9.1 K/mm3 (4.4-11.0)
[2022-12-09 11:15] LABS: Anion Gap 7 (5-15); BUN 47 mg/dL (7-18); Calcium,Total 9.4 mg/dL (8.5-10.1); Chloride 105 mmol/L (98-107); Creatinine, Serum 1.88 mg/dL (0.55-1.02); EST Glomerular Filtration Rate 27 mL/min (>60); Est Glom Filt Rate - Afr Amer 33 mL/min (>60); Glucose 101 mg/dL (74-106); Potassium 4.3 mmol/L (3.5-5.1); Sodium Level 140 mmol/L (136-145)
[2022-12-09 12:14] LABS: Bacteria 0 SEEN /hpf (None Seen); Mucous, Urine 0 SEEN /hpf (<or=2+); Red Blood Cells-Urine 0 SEEN /hpf (0-5); White Blood Cells 0 SEEN /hpf (0-5)
[2022-12-09 12:20] LABS: Color, Urine Straw (Yellow); Glucose, Dipstick Normal (Normal); Ketone-Dipstick Negative (Negative); Leukocyte Esterase-Dipstick Negative /ul (Negative); Nitrite-Dipstick Negative (Negative); Occult Blood-Urine Negative /ul (Negative); Protein-Dipstick Negative (Negative); Urine Bilirubin Dipstick Negative (Negative); Urine Clarity Clear (Clear); Urine Urobilinogen Normal (Normal)
[2022-12-09 12:24] VITALS: BP 125/61; PULSE 70; RESP 18; O2SAT 93
[2022-12-09 12:29] LABS: Squamous Epithelial Cells - UA 0-5 SEEN /hpf (5-10)
[2022-12-09] MEDS: Ciprofloxacin 500 MG Tablet PO (12:55)
[2022-12-09] MEDS: metroNIDAZOLE 500 MG Tablet PO (12:55)
== END 2022-12-09 12:58 | disposition home or self-care (01) ==
PROVIDERS: Emergency Provider Emergency Medicine; PCP Internal Medicine; Visit Provider Emergency Medicine
DX: K57.92 Diverticulitis of intestine, part unspecified, without perforation or abscess without bleeding (principal); I10 Essential (primary) hypertension; E78.5 Hyperlipidemia, unspecified; Z87.891 Personal history of nicotine dependence
CPT/HCPCS: 74176; 80048; 81001; 85025; 96374; 96375; 99284; J7030; J2405

== ENCOUNTER 2022-12-30 17:05 | Emergency (ER) | payer MEDICARE, SELFPAY ==
[2022-12-30 17:06] VITALS: BP 133/40; PULSE 69; RESP 14; TEMP 36.6; O2SAT 97; BMI 30.1
[2022-12-30 17:55] LABS: Absolute Lymphocyte Count 1.37 X10^3/uL (0.83-4.51); Absolute Neutrophil Count 5.3 X10^3/uL (2.0-7.7); Basophil# 0.03 X10^3/uL; Basophil% 0.4 % (0-1); Eosinophil# 0.16 X10^3/uL; Eosinophils% 2.1 % (0-5); Hematocrit 38.8 % (37-47); Hemoglobin 12.8 g/dL (12.0-15.0); Lymphocyte # 1.37 X10^3/ul (0.83-4.51); Mean Corpuscular Hgb 32.7 pg (27.0-32.0); Mean Platelet Vol. 11.4 fl (6.2-12.0); Monocyte# 0.73 X10^3/uL; Monocyte% 9.6 % (0-10); NRBC Flagged by Analyzer 0 % (0-5); Neutrophil # 5.31 X10^3/uL (2.7-7.7); Neutrophil % 69.5 % (47-70); POSITIVE COUNT YES; Platelet Count 220 K/mm3 (150-450); RBC Distribution Width CV 15.2 % (11.6-14.6); RBC Distribution Width SD 55.2 fl (35.1-43.9); Red Blood Count 3.92 M/mm3 (4.2-5.4); White Blood Count 7.6 K/mm3 (4.4-11.0)
--- NOTE | 2022-12-30 17:59 | EX.ED.DYSGE1 ---
HPI History of Present Illness Chief Complaint: Back Informant: patient and family Narrative Narrative: Patient presents with some pain in her left lower back left hip area and some left groin. It will radiate actually down to her knee on occasion. It is worse with sitting or standing is better with laying. Eating does not seem to bother it. Bowel habits seem normal. She states it started about a month ago. She was seen here about 3 weeks ago. She was diagnosed with diverticulitis. She took the medicines but does not think it really helped a lot. No fevers or chills. No trauma. No blood in the stool. No syncope or presyncope. [facility] Medical History Bilateral carotid artery stenosis Claudication Diverticulosis Dyslipidemia Essential hypertension Limb weakness Neck and back pain PAD (peripheral artery disease) Renal cyst RLS (restless legs syndrome) Shoulder pain TIA (transient ischemic attack) Home Medications atorvastatin 40 mg tablet 40 mg PO QHS 02/22/16 [History Last Taken 05/06/17 08:00] clopidogrel 75 mg tablet 75 mg PO DAILY 02/22/16 [History Last Taken 05/06/17 08:00] multivitamin with folic acid 400 mcg tablet 1 tab PO DAILY 02/22/16 [History Last Taken 05/06/17 08:00] pramipexole 0.5 mg tablet 2 tab PO QHS 02/22/16 [History Last Taken 05/06/17 22:00] spironolactone 25 mg tablet 25 mg PO DAILY 02/22/16 [History Last Taken 05/06/17 08:00] albuterol sulfate 90 mcg/actuation aerosol inhaler 2 puff inhalation BID PRN Sob &/Or Wheezing 03/16/18 [History Last Taken Unknown] cholecalciferol (vitamin D3) 25 mcg (1,000 unit) tablet 2,500 unit PO DAILY 10/09/18 [History Last Taken Unknown] furosemide 40 mg tablet 40 mg PO DAILY #90 tabs 01/27/22 [Rx Last Taken Unknown] carvedilol 12.5 mg tablet 12.5 mg PO BID #180 tabs 02/01/22 [Rx Last Taken Unknown] albuterol sulfate 2.5 mg/3 mL (0.083 %) solution for nebulization 2.5 mg inhalation Q4H PRN 05/28/22 [History Last Taken Unknown] ipratropium 0.5 mg-albuterol 3 mg (2.5 mg base)/3 mL nebulization soln 3 ml inhalation Q6H PRN 05/28/22 [History Last Taken Unknown] trazodone 50 mg tablet 50 mg PO DAILY 05/28/22 [History Last Taken Unknown] hydralazine 25 mg tablet 25 mg PO TID #270 tabs 10/07/22 [Rx Last Taken Unknown] benzonatate 100 mg capsule 100 mg PO TID PRN cough 12/06/22 [History Last Taken Unknown] budesonide 0.5 mg/2 mL suspension for nebulization 0.25 mg inhalation TID PRN 12/06/22 [History Last Taken Unknown] losartan 100 mg-hydrochlorothiazide 25 mg tablet 1 tab PO DAILY 12/06/22 [History Last Taken Unknown] metolazone 2.5 mg tablet 2.5 mg PO Q OTHER DAY 12/06/22 [History Last Taken Unknown] ciprofloxacin HCl 500 mg tablet 500 mg PO BID #20 TABLETS 12/09/22 [Rx Last Taken Unknown] metronidazole 500 mg tablet 500 mg PO Q6H #40 tabs 12/09/22 [Rx Last Taken Unknown] hydrocodone-acetaminophen 5-325mg 5mg-325mg 1 tab PO Q6H PRN PRN Pain 3 days #10 TABLETS 12/30/22 [Rx Last Taken Unknown] Allergy/AdvReac Type Severity Reaction Status Date / Time lisinopril Allergy Unknown Verified 12/30/22 17:06 aspirin AdvReac Upset Verified 12/30/22 17:06 Stomach Family History Mother Heart disease Surgical History History of basal cell carcinoma excision History of carotid angioplasty History of kidney stones History of thyroid surgery History of total hysterectomy Social History Smoking Status: Former smoker how long ago did patient quit smokin years ago alcohol intake: current alcohol intake frequency: holidays/special occasions only details: rare substance use type: does not use caffeine: Yes Type: coffee Number of servings: 1 ROS ROS ED ROS Narrative A complete review of systems was performed and is negative except as documented in the history of present illness. Some specific details below. Constitutional: No recent fevers or chills. No malaise. EYE: No visual complaints or pain. ENT: No difficulty swallowing. No swelling. No pain. CV: No chest pain or palpitations. Respiratory: No dyspnea. No hemoptysis. No difficulty taking breaths. GI: No nausea vomiting diarrhea. See history of present illness. : No frequency dysuria or hematuria. No new difficulty starting or stopping stream. Musculoskeletal: Lower back pain but mostly left buttock pain radiating around to the hip and down the leg at times. See history of present illness. Skin: No rash. Nondiaphoretic. Neuro: No weakness or numbness. Endocrine: No polyuria or polydipsia. EXAM Physical Exam Narrative Exam Narrative: CONSTITUTIONAL: Patient is nontoxic in appearance. The patient looks comfortable. HEENT: No notable trauma. Mucous membranes moist. No sinus tenderness. No indication of pain with swallowing. EYES: No conjunctival injection. No proptosis. CARDIOVASCULAR: Regular rate. Regular rhythm. No notable murmur. No JVD. RESPIRATORY: No respiratory distress. Breathing is unlabored. No wheezes. No rhonchi. No rales. No pain with a deep breath. GASTROINTESTINAL: Not distended. Bowel sounds are normal. No tenderness. No guarding. No rebound. No palpable mass. No bruit. Overall abdomen is quite benign. GENITOURINARY: No tenderness over the bladder. No CVA tenderness. MUSCULOSKELETAL: Patient has no lumbar or sacral tenderness. But she does have sciatic notch tenderness on the left. She also has some tenderness over the greater trochanter but no swelling. No distal tenderness. There is no distal swelling or asymmetry or distended veins or tenderness along the deep venous system. NEUROLOGICAL: Patient is alert and appropriate. No focal deficit noted. SKIN: No noted rashes. No diaphoresis. PSYCHIATRIC: Patient is calm. Mood is appropriate. Const Vital Signs: 12/30/22 17:06 Temperature 98 F Temperature Source Temporal Pulse Rate 69 Respiratory Rate 14 Blood Pressure 133/40 H Blood Pressure Mean 71 Pulse Ox 97 Oxygen Delivery Method Room Air MDM MDM MDM Narrative Medical decision making narrative: At this time, patient's symptoms sound very much like sciatica. She has left buttock back area pain that radiates down around to the left hip and occasionally down the leg. It is worsened by standing and sitting. She is not having GI symptoms. Because of the question of diverticulitis, we will rescan this area. I will also get hip x-ray. But I think her symptoms are most likely sciatica. Patient CBC does not show elevated white count. It is overall normal. Patient's electrolytes show a rise in her creatinine. But I also found out they doubled her diuretics recently because she had ankle swelling. The swelling is now down. We have told her we will have her go back to her prior dose. Urinalysis is negative. My independent interpretation of her CT of the abdomen shows some diverticular disease. Final reading does show some mild findings of stranding and diverticulitis also. I talked with patient and daughter about options. She actually is just on day 2 of cefdinir for this. I still think a lot of her symptoms match sciatica. But there is a component of diverticulitis. She is still eating and drinking. She is not febrile. She is not having any vomiting. She does not have a white count. I think we can try continued outpatient management for a bit. She evidently has not altered her diet at all. We talked about significant importance of transitioning to a clear liquid diet for at least a few days and then slowly increasing that. I will write for some meds for pain. If she has vomiting fevers worsening pain or other issue she may end up needing to come in the hospital. But I think we can try this as an outpatient. She is given a little bit of fluids here for the increased creatinine. She does not have a history of congestive heart failure but they are treating peripheral edema. We also discussed being cautious with pain meds and constipation. We discussed MiraLAX and [id number]-vosomuw laxatives if needed. But if she switches to a clear liquid diet this should hopefully not be an issue. Lab Data Attestation: I reviewed the patient's lab results. Labs: Laboratory Results - last 24 hr 12/30/22 12/30/22 12/30/22 17:44 17:44 18:04 WBC 7.6 RBC 3.92 L Hgb 12.8 Hct 38.8 MCV 99.0 MCH 32.7 H MCHC 33.0 RDW Std Deviation 55.2 H RDW Coeff of Ha 15.2 H Plt Count 220 MPV 11.4 Immature Gran % (Auto) 0.400 Neut % (Auto) 69.5 Lymph % (Auto) 18.0 L [place] % (Auto) 9.6 Eos % (Auto) 2.1 Baso % (Auto) 0.4 Absolute Neuts (auto) 5.3 Absolute Lymphs (auto) 1.37 Nucleated RBC % 0 Sodium 134 L Potassium 4.3 Chloride 96 L Carbon Dioxide 30.0 Anion Gap 8 BUN 71 H Creatinine 2.63 H Estim Creat Clear Calc 12.37 Est GFR (MDRD) Af Amer 22 L Est GFR (MDRD) Non-Af 18 L BUN/Creatinine Ratio 27.0 H Glucose 135 H Calcium 9.7 Urine Color Yellow Urine Clarity Clear Urine pH 7.[address] [place] 1.010 Urine Protein Negative Urine Glucose (UA) Normal Urine Ketones Negative Urine Occult Blood Negative Urine Nitrite Negative Urine Bilirubin Negative Urine Urobilinogen Normal Ur Leukocyte Esterase Negative Urine RBC 0 SEEN Urine WBC 0 SEEN Ur Squamous Epith Cells 0 SEEN Urine Bacteria 0 SEEN Urine Mucus 0 SEEN Radiography Diagnostic Testing: Clinical Impression(s) from Imaging Studies Abdomen/Pelvis CT 12/30/22 18:27 IMPRESSION: Acute uncomplicated sigmoid diverticulitis. Electronically Signed: Rolly Taylor MD at 19:34 EDT , Hip/Pelvis X-Ray 12/30/22 18:49 IMPRESSION: No evidence of displaced pelvic or left hip fracture. Electronically Signed: Rolly Taylor MD at 19:06 EDT , Discharge Plan Triage Chief Complaint: Back ED Provider: Avel Zuleta Dx/Rx/DC Orders Clinical Impression: Diverticulitis, Left sided sciatica, Creatinine elevation Instructions: ED Diverticulitis, ED Sciatica Prescriptions: New hydrocodone-acetaminophen [hydrocodone-acetaminophen] 5-325 mg tablet 1 tab PO Q6H PRN PRN (Reason: Pain) 3 Days Qty: 10 0RF No Action cholecalciferol (vitamin D3) 1,000 unit tablet 2,500 unit PO DAILY albuterol sulfate 2.5 mg /3 mL (0.083 %) solution for nebulization 2.5 mg inhalation Q4H PRN ipratropium-albuterol 0.5 mg-3 mg(2.5 mg base)/3 mL solution for nebulization 3 ml inhalation Q6H PRN trazodone 50 mg tablet 50 mg PO DAILY budesonide 0.5 mg/2 mL suspension for nebulization 0.25 mg inhalation TID PRN benzonatate 100 mg capsule 100 mg PO TID PRN (Reason: cough) Label Comments: TAKE 1 TO 2 CAPSULES BY MOUTH THREE TIMES DAILY NEEDED FOR COUGH metolazone 2.5 mg tablet 2.5 mg PO Q OTHER DAY Label Comments: TAKE 1 TABLET BY MOUTH ONCE DAILY PRIOR TO LASIX DISCUSSED atorvastatin 40 MG tablet 40 mg PO QHS Label Comments: reduces cholesterol clopidogrel 75 MG tablet 75 mg PO DAILY Label Comments: blood thinner spironolactone 25 MG tablet 25 mg PO DAILY Label Comments: water pill/diuretic pramipexole 0.5 MG tablet 2 tab PO QHS Label Comments: restless leg syndrome multivitamin with folic acid 1 TABLET tablet 1 tab PO DAILY Label Comments: supplement albuterol sulfate 90 mcg/actuation HFA aerosol inhaler 2 puff INHALATION BID PRN (Reason: Sob &/Or Wheezing) Label Comments: BREATHING losartan-hydrochlorothiazide 100-25 mg tablet 1 tab PO DAILY Label Comments: 100/25MG. BLOOD PRESSURE/HEART metronidazole [metronidazole] 500 mg tablet 500 mg PO Q6H Qty: 40 0RF ciprofloxacin HCl [ciprofloxacin HCl] 500 mg tablet 500 mg PO BID Qty: 20 0RF furosemide 40 mg tablet 40 mg PO DAILY Qty: 90 3RF carvedilol 12.5 mg tablet 12.5 mg PO BID Qty: 180 4RF Rx Instructions: must administer with a meal/food hydralazine 25 mg tablet 25 mg PO TID Qty: 270 3RF Primary Care Provider: Anu Mortensen Referrals: Anu Mortensen MD [Primary Care Provider] - 3-5 Days Disposition Disposition: Home, Self Care
[2022-12-30 18:10] LABS: Bacteria 0 SEEN /hpf (None Seen); Mucous, Urine 0 SEEN /hpf (<or=2+); Red Blood Cells-Urine 0 SEEN /hpf (0-5); Squamous Epithelial Cells - UA 0 SEEN /hpf (5-10); White Blood Cells 0 SEEN /hpf (0-5)
[2022-12-30 18:24] LABS: Color, Urine Yellow (Yellow); Glucose, Dipstick Normal (Normal); Ketone-Dipstick Negative (Negative); Leukocyte Esterase-Dipstick Negative /ul (Negative); Nitrite-Dipstick Negative (Negative); Occult Blood-Urine Negative /ul (Negative); Protein-Dipstick Negative (Negative); Urine Bilirubin Dipstick Negative (Negative); Urine Clarity Clear (Clear); Urine Urobilinogen Normal (Normal)
[2022-12-30 18:25] LABS: Anion Gap 8 (5-15); BUN 71 mg/dL (7-18); Calcium,Total 9.7 mg/dL (8.5-10.1); Chloride 96 mmol/L (98-107); Creatinine, Serum 2.63 mg/dL (0.55-1.02); EST Glomerular Filtration Rate 18 mL/min (>60); Est Glom Filt Rate - Afr Amer 22 mL/min (>60); Estimated Creatinine Clearance 12.37 ml/min; Glucose 135 mg/dL (74-106); Potassium 4.3 mmol/L (3.5-5.1); Sodium Level 134 mmol/L (136-145)
--- NOTE | 2022-12-30 18:27 | CT_ITS ---
INDICATION: LLQ pain EXAMINATION: CT ABDOMEN AND PELVIS WITHOUT CONTRAST - CT Abdomen And Pelvis W/O Contrast Injection TECHNIQUE: Helically acquired images were obtained of the abdomen and pelvis without oral or IV contrast. A radiation dose optimization technique was used for this scan. IV Contrast dosage and agent: None. Oral contrast: None. RADIATION DOSAGE (If Supplied By Facility): CTDIvol = ( 10.17 ) mGy, DLP = ( 477.87 ) mGycm COMPARISON: 12/09/2022 FINDINGS: LOWER CHEST: Atelectasis in the right middle lobe. No cardiomegaly or pericardial effusion. LIVER: Homogeneous. No focal mass. GALLBLADDER AND BILIARY TREE: No calcified gallstones. No gallbladder distension or wall edema. No intra- or extrahepatic biliary ductal dilation. PANCREAS: No focal cystic or solid mass. SPLEEN: Normal size without focal cystic or solid mass. ADRENAL GLANDS: No nodules. KIDNEYS AND URETERS: Atrophic right kidney. No hydronephrosis. PERITONEUM: No ascites or free air. No other fluid collection. BOWEL: No evidence of acute appendicitis. Sigmoid diverticulosis with wall thickening and mild surrounding inflammatory stranding. No focal inflammatory change. LYMPH NODES: No enlarged mesenteric or retroperitoneal lymph nodes. VESSELS: Calcific aorta with suprarenal aneurysm redemonstrated. URINARY BLADDER: Unremarkable. REPRODUCTIVE ORGANS: Prior hysterectomy. ABDOMINAL WALL: No discrete abdominal or pelvic wall hernia. BONES: Degenerative changes of the lumbar spine. CT/Abdomen/Pelvis without Cont IMPRESSION: Acute uncomplicated sigmoid diverticulitis. Electronically Signed: Rolly Taylor MD at 19:34 EDT ,
--- NOTE | 2022-12-30 18:49 | RAD_ITS ---
INDICATION: pain EXAMINATION/TECHNIQUE: X-RAY - XR Hip Unilateral with Pelvis when performed; 2-3 Views COMPARISON: Concurrent CT abdomen/pelvis FINDINGS: PELVIC BONES: No displaced fracture, destructive or sclerotic lesions. Note that overlapping bowel shadows may however obscure fine detail. Sacroiliac joints are unremarkable. No widening of the pubic symphysis. Left hip: Femoral acetabular joint space is maintained. No finding of fracture. SOFT TISSUES: No soft tissue swelling or gas. RAD/HIP, UNI W/ Pelvis 2-3 Views IMPRESSION: No evidence of displaced pelvic or left hip fracture. Electronically Signed: Rolly Taylor MD at 19:06 EDT ,
[2022-12-30] MEDS: HYDROcodone Bitartrate/Apap 5/325 Tablet PO (20:30)
== END 2022-12-30 20:35 | disposition home or self-care (01) ==
PROVIDERS: Emergency Provider Emergency Medicine; PCP Internal Medicine; Visit Provider Emergency Medicine
DX: K57.32 Diverticulitis of large intestine without perforation or abscess without bleeding (principal); M54.42 Lumbago with sciatica, left side; I10 Essential (primary) hypertension; R79.89 Other specified abnormal findings of blood chemistry; Z79.01 Long term (current) use of anticoagulants; Z79.899 Other long term (current) drug therapy; Z87.891 Personal history of nicotine dependence
CPT/HCPCS: 73502; 74176; 80048; 81001; 85025; 99284; A4216

== ENCOUNTER → 2023-02-03 | Outpatient (CLI) | payer MEDICARE, SELFPAY ==
--- NOTE | 2023-02-03 14:46 | CT_ITS ---
EXAM: CT ABDOMEN AND PELVIS WITHOUT INTRAVENOUS CONTRAST CLINICAL INDICATION: LLQ PAIN TECHNIQUE: Helically acquired images were obtained of the abdomen and pelvis without intravenous contrast. This CT exam was performed using one or more of the following dose reduction techniques: automated exposure control, adjustment of the mA and/or kV according to patient size, and/or use of iterative reconstruction technique. CONTRAST: Oral Readi-CAT COMPARISON: 12/30/2022 FINDINGS: LOWER THORAX: There is minimal atelectasis in the right middle lobe. No cardiomegaly. No significant pericardial effusion. ABDOMEN: LIVER: Unremarkable. Homogeneous. GALLBLADDER AND BILE DUCTS: Unremarkable. No calcified gallstones. No gallbladder distention or wall edema. No intra- or extrahepatic biliary ductal dilation. PANCREAS: Unremarkable. No focal cystic mass. SPLEEN: Unremarkable. Normal size without focal cystic or solid mass. ADRENALS: Unremarkable. No nodules. KIDNEYS AND URETERS: There is a stable solid mass in the anterior right kidney that measures 3.1 x 1.9 x 2.6 cm. There is also a stable low-density cystic mass in the right kidney. There are bilateral nonobstructing calyceal stones. STOMACH AND BOWEL: There is sigmoid diverticulosis with no evidence of diverticulitis. No stomach or bowel distention. PELVIS: APPENDIX: No evidence of acute appendicitis. BLADDER: Unremarkable. REPRODUCTIVE: Unremarkable as visualized. No mass. ABDOMEN and PELVIS: INTRAPERITONEAL SPACE: Unremarkable. No ascites or other fluid collection. No free air. BONES/JOINTS: Unremarkable. No suspicious lytic or blastic abnormality. SOFT TISSUES: Unremarkable. No discrete abdominal or pelvic wall hernia. VASCULATURE: Unremarkable. Abdominal aorta is non-dilated. LYMPH NODES: Unremarkable. No enlarged lymph nodes. CT/Abdomen/Pel W ORAL Cont Only IMPRESSION: 1. Dense mass within the right kidney which may be solid and is unchanged from the reference exam. If indicated further evaluation with ultrasound may be beneficial. There are bilateral nonobstructing renal calculi present. 2. Sigmoid diverticulosis with no evidence of diverticulitis. There are no acute abnormalities in the abdomen or pelvis. Electronically Signed: Ezequiel Heaton MD at 17:01 EDT ,
== END | disposition home or self-care (01) ==
LOC: CT 14:45
PROVIDERS: PCP Internal Medicine; Referring Provider Internal Medicine Gastroenterology; Visit Provider Internal Medicine Gastroenterology
DX: R10.32 Left lower quadrant pain (principal)
CPT/HCPCS: 74176

== ENCOUNTER → 2023-03-03 | Outpatient (CLI) | payer MEDICARE, SELFPAY ==
--- NOTE | 2023-03-03 09:24 | RAD_ITS ---
INDICATION: LUMBAR SPRAIN EXAMINATION/TECHNIQUE: X-RAY - XR Spine Lumbar Min 4 Views COMPARISON: CT abdomen and pelvis 02/03/2023 FINDINGS: L1 mild compression abnormality superior endplate with approximately 30% vertebral body height loss, uncertain age. Not significantly changed compared to recent CT abdomen and pelvis The other vertebral bodies are normal in height. No definite acute fracture demonstrated. No subluxation. Mild curvature convex right. Disc space narrowing with osteophytes throughout essentially all levels. Facet arthropathy most pronounced at L4-5 and L5-S1. No paravertebral soft tissue mass identified. Aortic calcifications. RAD/L/S Spine Min 4 Views IMPRESSION: No evidence of acute fracture or subluxation. Mild L1 compression fracture unchanged likely old. Degenerative changes. Electronically Signed: Elsa Newell MD at 21:18 EDT ,
== END | disposition home or self-care (01) ==
LOC: RAD 09:21
PROVIDERS: PCP Internal Medicine; Referring Provider Chiropractor; Visit Provider Chiropractor
DX: S33.5XXA Sprain of ligaments of lumbar spine, initial encounter (principal); X58.XXXA Exposure to other specified factors, initial encounter
CPT/HCPCS: 72110

== ENCOUNTER 2023-04-16 14:37 | Emergency (ER) | payer MEDICARE, SELFPAY ==
[2023-04-16 14:37] VITALS: BP 158/50; PULSE 83; RESP 20; TEMP 36.6; O2SAT 98; BMI 28.9
[2023-04-16] MEDS: HYDROcodone Bitartrate/Apap 5/325 Tablet PO (15:20)
--- NOTE | 2023-04-16 15:29 | EDS_ITS ---
HPI <INDIRA Mendoza - Last Filed: 04/16/23 16:56> History of Present Illness Chief Complaint: Back Narrative Narrative: Patient presenting today due to chronic lower back pain that she has had for several years. She reports that over the past 2 weeks it has been worse after starting physical therapy. She reports that she has seen a chiropractor, her PCP, and recently started PT 2 weeks ago. She has had multiple x-rays performed of her back and was told she has arthritis. She denies any injury to her back. She also reports a history of restless leg syndrome and feels that her legs are jerking more than normal, she was just started on a prescription for gabapentin recently. She denies any fever, chills, bowel/bladder incontinence, saddle paresthesia, and urinary symptoms. [facility] <INDIRA Mendoza - Last Filed: 04/16/23 16:56> [facility] Medical History Bilateral carotid artery stenosis Claudication Diverticulosis Dyslipidemia Essential hypertension Limb weakness Neck and back pain PAD (peripheral artery disease) Renal cyst RLS (restless legs syndrome) Shoulder pain TIA (transient ischemic attack) Home Medications atorvastatin 40 mg tablet 40 mg PO QHS 02/22/16 [History Last Taken 05/06/17 08:00] clopidogrel 75 mg tablet 75 mg PO DAILY 02/22/16 [History Last Taken 05/06/17 08:00] multivitamin with folic acid 400 mcg tablet 1 tab PO DAILY 02/22/16 [History Last Taken 05/06/17 08:00] pramipexole 0.5 mg tablet 2 tab PO QHS 02/22/16 [History Last Taken 05/06/17 22:00] spironolactone 25 mg tablet 25 mg PO DAILY 02/22/16 [History Last Taken 05/06/17 08:00] albuterol sulfate 90 mcg/actuation aerosol inhaler 2 puff inhalation BID PRN Sob &/Or Wheezing 03/16/18 [History Last Taken Unknown] cholecalciferol (vitamin D3) 25 mcg (1,000 unit) tablet 2,500 unit PO DAILY 10/09/18 [History Last Taken Unknown] furosemide 40 mg tablet 40 mg PO DAILY #90 tabs 01/27/22 [Rx Last Taken Unknown] carvedilol 12.5 mg tablet 12.5 mg PO BID #180 tabs 02/01/22 [Rx Last Taken Unknown] albuterol sulfate 2.5 mg/3 mL (0.083 %) solution for nebulization 2.5 mg inhalation Q4H PRN 05/28/22 [History Last Taken Unknown] ipratropium 0.5 mg-albuterol 3 mg (2.5 mg base)/3 mL nebulization soln 3 ml inhalation Q6H PRN 05/28/22 [History Last Taken Unknown] trazodone 50 mg tablet 50 mg PO DAILY 05/28/22 [History Last Taken Unknown] hydralazine 25 mg tablet 25 mg PO TID #270 tabs 10/07/22 [Rx Last Taken Unknown] benzonatate 100 mg capsule 100 mg PO TID PRN cough 12/06/22 [History Last Taken Unknown] budesonide 0.5 mg/2 mL suspension for nebulization 0.25 mg inhalation TID PRN 12/06/22 [History Last Taken Unknown] losartan 100 mg-hydrochlorothiazide 25 mg tablet 1 tab PO DAILY 12/06/22 [History Last Taken Unknown] metolazone 2.5 mg tablet 2.5 mg PO Q OTHER DAY 12/06/22 [History Last Taken Unknown] ciprofloxacin HCl 500 mg tablet 500 mg PO BID #20 TABLETS 12/09/22 [Rx Last Taken Unknown] metronidazole 500 mg tablet 500 mg PO Q6H #40 tabs 12/09/22 [Rx Last Taken Unknown] hydrocodone-acetaminophen 5-325mg 5mg-325mg 1 tab PO Q6H PRN PRN Pain 3 days #10 TABLETS 12/30/22 [Rx Last Taken Unknown] hydrocodone-acetaminophen 5-325mg 5mg-325mg 1 tab PO Q6H PRN pain 2 days #8 tabs 04/16/23 [Rx Last Taken Unknown] Allergy/AdvReac Type Severity Reaction Status Date / Time lisinopril Allergy edema Verified 04/16/23 14:40 aspirin AdvReac Upset Verified 04/16/23 14:40 Stomach Family History Mother Heart disease Surgical History History of basal cell carcinoma excision History of carotid angioplasty History of kidney stones History of thyroid surgery History of total hysterectomy Social History Smoking Status: Former smoker how long ago did patient quit smokin years ago alcohol intake: current alcohol intake frequency: holidays/special occasions only details: rare substance use type: does not use caffeine: Yes Type: coffee Number of servings: 1 ROS <INDIRA Mendoza - Last Filed: 04/16/23 16:56> ROS ED Constitutional Constitutional ED: Denies chills or fever(s) Cardiovascular Cardiovascular: Denies chest pain Respiratory/Chest Respiratory/Chest: Denies cough or dyspnea Gastrointestinal Gastrointestinal: Denies abdominal pain, nausea or vomiting Genitourinary Genitourinary ED: Denies dysuria, hematuria or urinary urgency Musculoskeletal Musculoskeletal: Reports back pain Neurologic Neurologic: Denies paresthesias or weakness EXAM <INDIRA Mendoza - Last Filed: 04/16/23 16:56> Physical Exam Const Vital Signs: 04/16/23 14:37 Temperature 97.9 F Temperature Source Temporal Pulse Rate 83 Respiratory Rate 20 H Blood Pressure 158/50 H Blood Pressure Mean 86 Pulse Ox 98 Oxygen Delivery Method Room Air Positive well nourished, well developed and no apparent distress General Appearance ED: well developed HEENT Reports normocephalic and head/scalp atraumatic Mouth ED: Yes moist mucous membranes normal Eyes PERRL and EOMs intact bilaterally Neck full ROM and supple Chest Wall inspection of chest normal Resp normal respiratory effort and clear to auscultation bilaterally Cardio regular rate and regular rhythm GI soft to palpation, non-tender, non-distended and no masses Back/Spine normal ROM and normal to inspection Back/Spine Narrative: Right and left paraspinal tenderness to the thoracic and lumbar spine. No midline tenderness to the cervical, thoracic, or lumbar spine. Extremity normal to inspection and full ROM Neuro oriented x3, CN's II-XII intact bilaterally, moves all extremities, no focal motor deficits and no sensory deficits noted Sensorium / Orientation: awake and alert Motor Exam: strength 5/5 throughout Deep Tendon Reflexes: Rt Patellar (L4): 2+, Lt Patellar (L4): 2+, Rt Ankle (S1): 2+ and Lt Ankle (S1): 2+ Deep Tendon Reflexes Back: Rt Patellar (L4): 2+, Lt Patellar (L4): 2+, Rt Ankle (S1): 2+ and Lt Ankle (S1): 2+ Psych mental status grossly normal and thought process normal Skin no rashes or lesions noted and no wounds <Dr. Guero Holland MD - Last Filed: 04/16/23 15:48> Physical Exam Const Vital Signs: 04/16/23 14:37 Temperature 97.9 F Temperature Source Temporal Pulse Rate 83 Respiratory Rate 20 H Blood Pressure 158/50 H Blood Pressure Mean 86 Pulse Ox 98 Oxygen Delivery Method Room Air [facility] <INDIRA Mendoza - Last Filed: 04/16/23 16:56> [facility] Narrative Medical decision making narrative: Patient presenting due to chronic back pain that she has had for several years that acutely worsened 2 weeks ago after she started PT. She has seen a chiropractor for this, PT, and her PCP. Her pain today is similar to the pain that she normally experiences. She tried taking Tylenol and ibuprofen today with minimal relief of her symptoms. No injury to her back, no symptoms of cauda equina syndrome. She is well-appearing and in no acute distress. I did recommend that patient discuss pain management with her PCP as this has been going on for a long time. She was given a dose of [place] here and on repeat exam reports great improvement of her symptoms. I will give her prescription for a short duration of this. She is to follow-up with her PCP and will be discharged home in stable condition. She is comfortable with plan. <Dr. Guero Holland MD - Last Filed: 04/16/23 15:48> [facility] Treatment and Re-Evaluation Narrative: I have personally performed a face to face assessment of the patient and have reviewed the DELIA Note. I performed a substantive portion of the visit including all aspects of the following. My nesbitt findings include: History is pain across her low back worse with movement without associated abdominal pain, radiation below the knees, bowel or bladder dysfunction, or paresthesias/weakness in the extremities for the past couple months. No known injury. Had x-rays, several courses of prednisone, [place], Percocet nothing has helped. Currently not on any specific prescriptions for it except to start a gabapentin and taking Tylenol and ibuprofen which did not help so she came here today on Tuesday. Exam is well-appearing in no distress. Can sit forward without difficulty. Pain in both SI joint areas paraspinal areas, no midline tenderness. No rash. Negative straight leg raises. Normal reflexes, neurovascularly intact distally both lower extremities. Medical Decison Making patient does not have cauda equina syndrome. She does not have findings or symptoms of sciatica. The pain radiates into her thighs, but not below the knees and she has negative straight leg raises. Supportive care advised, as well as outpatient follow-up for advanced imaging if she has pain that would not go away. Does not sound like repeat x-rays are indicated at this time. We discussed pain control which we will try to help her with at this time. Other additions or changes: [None] Discharge Plan Triage Chief Complaint: Back ED Midlevel Provider: Adeline Amaral ED Provider: Guero Holland Dx/Rx/DC Orders Clinical Impression: Chronic back pain Instructions: ED Back Care Tips Prescriptions: New hydrocodone-acetaminophen 5-325 mg tablet 1 tab PO Q6H PRN (Reason: pain) 2 Days Qty: 8 0RF No Action cholecalciferol (vitamin D3) 1,000 unit tablet 2,500 unit PO DAILY albuterol sulfate 2.5 mg /3 mL (0.083 %) solution for nebulization 2.5 mg inhalation Q4H PRN ipratropium-albuterol 0.5 mg-3 mg(2.5 mg base)/3 mL solution for nebulization 3 ml inhalation Q6H PRN trazodone 50 mg tablet 50 mg PO DAILY budesonide 0.5 mg/2 mL suspension for nebulization 0.25 mg inhalation TID PRN benzonatate 100 mg capsule 100 mg PO TID PRN (Reason: cough) Patient Comments: TAKE 1 TO 2 CAPSULES BY MOUTH THREE TIMES DAILY NEEDED FOR COUGH metolazone 2.5 mg tablet 2.5 mg PO Q OTHER DAY Patient Comments: TAKE 1 TABLET BY MOUTH ONCE DAILY PRIOR TO LASIX DISCUSSED atorvastatin 40 MG tablet 40 mg PO QHS Patient Comments: reduces cholesterol clopidogrel 75 MG tablet 75 mg PO DAILY Patient Comments: blood thinner spironolactone 25 MG tablet 25 mg PO DAILY Patient Comments: water pill/diuretic pramipexole 0.5 MG tablet 2 tab PO QHS Patient Comments: restless leg syndrome multivitamin with folic acid 1 TABLET tablet 1 tab PO DAILY Patient Comments: supplement albuterol sulfate 90 mcg/actuation HFA aerosol inhaler 2 puff INHALATION BID PRN (Reason: Sob &/Or Wheezing) Patient Comments: BREATHING losartan-hydrochlorothiazide 100-25 mg tablet 1 tab PO DAILY Patient Comments: 100/25MG. BLOOD PRESSURE/HEART metronidazole [metronidazole] 500 mg tablet 500 mg PO Q6H Qty: 40 0RF ciprofloxacin HCl [ciprofloxacin HCl] 500 mg tablet 500 mg PO BID Qty: 20 0RF hydrocodone-acetaminophen [hydrocodone-acetaminophen] 5-325 mg tablet 1 tab PO Q6H PRN PRN (Reason: Pain) 3 Days Qty: 10 0RF furosemide 40 mg tablet 40 mg PO DAILY Qty: 90 3RF carvedilol 12.5 mg tablet 12.5 mg PO BID Qty: 180 4RF Rx Instructions: must administer with a meal/food hydralazine 25 mg tablet 25 mg PO TID Qty: 270 3RF Primary Care Provider: Anu Mortensen Referrals: Anu Mortensen MD [Primary Care Provider] - 5-7 Days Activity Restrictions/Additional Instructions: Follow-up with PCP, return for any worsening of symptoms. Disposition Disposition: Home, Self Care Discharge Date/Time: 04/16/23 16:37
== END 2023-04-16 16:37 | disposition home or self-care (01) ==
PROVIDERS: Emergency Provider Emergency Medicine; PCP Internal Medicine; Visit Provider Emergency Medicine
DX: M54.50 Low back pain, unspecified (principal); G89.29 Other chronic pain; M53.3 Sacrococcygeal disorders, not elsewhere classified; Z87.891 Personal history of nicotine dependence; E78.5 Hyperlipidemia, unspecified; I10 Essential (primary) hypertension
CPT/HCPCS: 99283

== ENCOUNTER → 2023-05-14 | Outpatient (CLI) | payer MEDICARE, SELFPAY ==
--- NOTE | 2023-05-14 07:00 | MRI_ITS ---
INDICATION: RADICULOPATHY, CHRONIC LOW BACK PAIN EXAMINATION: MRI - MR Spine Lumbar W/O Contrast TECHNIQUE: Multiplanar and multisequence MR images of the lumbar spine. IV Contrast Dosage and Agent: None. COMPARISON: None. FINDINGS: VERTEBRAE: Mild chronic wedge deformity at L1 with a 20% loss of vertebral body height at its midpoint. VERTEBRAL ALIGNMENT: No spondylolisthesis. There is preservation of the normal lumbar lordosis. CORD: Normal position and signal intensity of the conus medullaris. L1/L2: Moderate disc desiccation. L2/L3: Moderate disc desiccation, grade 1 retrolisthesis of L2 on L3, mild pseudobulge, mild bilateral facet arthropathy, moderate bilateral neural foraminal encroachment. L3/L4: Moderate disc desiccation, moderate disc bulging, moderate bilateral facet arthropathy and ligamentous hypertrophy, moderate central stenosis, moderate bilateral neural foraminal encroachment. L4/L5: Moderate disc desiccation, moderate disc bulging, moderate bilateral facet arthropathy and ligamentous hypertrophy, mild central stenosis, severe bilateral neural foraminal encroachment. L5/S1: Moderate disc desiccation, mild disc bulging, moderate bilateral facet arthropathy, severe bilateral neural foraminal encroachment. SOFT TISSUES: Unremarkable. MRI/Spine Lumbar (Routine) IMPRESSION: Mild chronic wedge deformity L1. L2-3 grade 1 retrolisthesis with mild central bulge. L3-4 and L4-5 moderate disc bulging, L5-S1 mild disc bulging. Multilevel degenerative disc disease, central stenosis, facet arthropathy and neural foraminal encroachment as above. Electronically Signed: Chuck Peng MD at 12:07 EDT ,
== END | disposition home or self-care (01) ==
LOC: MRI 06:59
PROVIDERS: PCP Internal Medicine; Referring Provider Anesthesiology; Visit Provider Anesthesiology
DX: M54.16 Radiculopathy, lumbar region (principal)
CPT/HCPCS: 72148

== ENCOUNTER 2023-06-19 10:50 | Inpatient (IN) | payer MEDICARE, SELFPAY ==
[2023-06-19] VITALS (11 sets, daily range): BP systolic 130–159; BP diastolic 43–91; PULSE 72–103; RESP 18–31; TEMP 36.3–36.7; O2SAT 85–98; BMI 28.5; BMI 29.5
--- NOTE | 2023-06-19 11:12 | EKG12_ITS ---
Test Reason : SOB Blood Pressure : / mmHG Vent. Rate : 103 BPM Atrial Rate : 103 BPM P-R Int : 158 ms QRS Dur : 118 ms QT Int : 400 ms P-R-T Axes : 064 152 083 degrees QTc Int : 524 ms Sinus tachycardia with Fusion complexes Right bundle branch block Abnormal ECG Confirmed by SILVIA GOETZ, TOO ([id number]), news video editor CURTIS WETZEL ([id number]) on 06/20/2023 10:56:52 AM Referred By: SHEBA/AR Confirmed By:TOO VEGA MD
--- NOTE | 2023-06-19 11:16 | EDS_ITS ---
HPI <WILMER Ramos - Last Filed: 06/19/23 12:59> History of Present Illness Chief Complaint: Shortness of Breath Narrative Narrative: Patient is an 87-year-old female with history of hypertension, hyperlipidemia, COPD, CAD on Plavix, history of peripheral edema who presents to the emergency department with 3 days of worsening cough, shortness of breath. Patient was 85% on room air, on 2 L she was 89%, on 4 L she is 94%. Patient does appear dyspneic, patient states that the cough has been getting worse over the last 3 days. Patient states she quit smoking multiple years ago however per the daughtershe is concerned that the patient is still smoking. Patient did get together with family with multiple children. They are concerned she might constantly. PFS <WILMER Ramos - Last Filed: 06/19/23 12:59> [facility] Medical History Bilateral carotid artery stenosis Claudication Diverticulosis Dyslipidemia Essential hypertension Limb weakness Neck and back pain PAD (peripheral artery disease) Renal cyst RLS (restless legs syndrome) Shoulder pain TIA (transient ischemic attack) Home Medications atorvastatin 40 mg tablet 40 mg PO QHS 02/22/16 [History Last Taken 06/18/23] clopidogrel 75 mg tablet 75 mg PO DAILY 02/22/16 [History Last Taken 06/19/23] multivitamin with folic acid 400 mcg tablet 1 tab PO DAILY 02/22/16 [History Last Taken 06/19/23] pramipexole 0.5 mg tablet 1.5 mg PO QHS 02/22/16 [History Last Taken 06/18/23] spironolactone 25 mg tablet 25 mg PO DAILY 02/22/16 [History Last Taken 06/19/23] albuterol sulfate 90 mcg/actuation aerosol inhaler 2 puff inhalation BID PRN Sob &/Or Wheezing 03/16/18 [History Last Taken 06/19/23] cholecalciferol (vitamin D3) 25 mcg (1,000 unit) tablet 2,500 unit PO DAILY 10/09/18 [History Last Taken 06/19/23] furosemide 40 mg tablet 40 mg PO DAILY #90 tabs 01/27/22 [Rx Last Taken 1 08/20/22] albuterol sulfate 2.5 mg/3 mL (0.083 %) solution for nebulization 2.5 mg inhalation Q4H PRN shortness of breath or wheezing 05/28/22 [History Last Taken 06/19/23] ipratropium 0.5 mg-albuterol 3 mg (2.5 mg base)/3 mL nebulization soln 3 ml inhalation Q6H PRN shortness of breath 05/28/22 [History Last Taken 06/19/23] budesonide 0.5 mg/2 mL suspension for nebulization 0.25 mg inhalation TID PRN sob 12/06/22 [History Last Taken 06/19/23] losartan 100 mg-hydrochlorothiazide 25 mg tablet 1 tab PO DAILY 12/06/22 [History Last Taken 06/19/23] carvedilol 12.5 mg tablet 12.5 mg PO BID #180 tabs 04/27/23 [Rx Last Taken 06/19/23] Allergy/AdvReac Type Severity Reaction Status Date / Time lisinopril Allergy edema Verified 06/19/23 10:51 aspirin AdvReac Upset Verified 06/19/23 10:51 Stomach Family History Mother Heart disease Surgical History History of basal cell carcinoma excision History of carotid angioplasty History of kidney stones History of thyroid surgery History of total hysterectomy Social History (Updated 06/19/23 @ 14:23 by Swapna Bates) household members: none Smoking Status: Former smoker how long ago did patient quit smokin years ago alcohol intake: current alcohol intake frequency: holidays/special occasions only details: rare substance use type: does not use caffeine: Yes Type: coffee Number of servings: 1 ROS <WILMER Ramos - Last Filed: 06/19/23 12:59> ROS ED ROS Narrative Constitutional: Negative for fever, chills, weight loss, weakness Eyes: Negative for vision loss, vision change, double vision ENT: Negative for any sore throat, ear pain, congestion Cardiovascular: Negative for any chest pain, tightness, palpitations Respiratory: Positive for for any cough, sputum production, dyspnea, dyspnea on exertion, orthopnea Gastrointestinal: Negative for any abdominal pain, nausea, vomiting, diarrhea, constipation, blood in stool, blood in vomit : Negative for any urinary frequency, dysuria, retention, blood in urine Muscle skeletal: Negative for any myalgias, arthralgias, neck pain, back pain Neurological: Negative for any headache, syncope, numbness or tingling, dizziness Skin: Negative for any rashes, lumps, itching, abrasions, lacerations Psychiatric: Negative for any depression, anxiety, stress, suicidal ideation, homicidal ideation Hematologic: Negative for any easy bruising, excessive bruising, easy bleeding Allergies: Negative for any eczema, hives, rash EXAM <WILMER Ramos - Last Filed: 06/19/23 12:59> Physical Exam Narrative Exam Narrative: Vital signs reviewed. On initial evaluation, the patient seems to be in mild distress, patient is responding well to 4 L nasal cannula oxygen. Patient is dyspneic, patient is a harsh cough. HEET: Head normocephalic atraumatic, TMs clear bilaterally. Posterior pharynx is clear, moist mucous membranes. Nares clear bilaterally. Neck: Supple with no lymphadenopathy or tenderness. No signs of meningismus. Cardiac: Regular rate and rhythm no murmurs gallops or rubs, equal peripheral pulses bilaterally. Respiratory: Patient has significant expiratory, inspiratory wheezes, rhonchorous breath sounds worse on the right. No chest tenderness. Abdomen: Soft, nontender, nondistended. No abdominal bruit or pulsatile masses. No hepatosplenomegaly Extremities: +2 pitting edema, per the daughter this is chronic, no signs of gross trauma or deformity. Active full range of motion of all extremities. Neuro: Cranial nerves II through XII intact, no focal neurological deficits. Skin: Clean dry and intact with no rash, purpura, petechiae, vesicles or pustules. Backs/flank: No CVA tenderness, no midline spinal tenderness, no deformity. Psych: Normal mood and affect. No SI, HI or acute psychosis. Const Vital Signs: 06/19/23 10:51 06/19/23 11:21 06/19/23 11:22 Temperature 97.3 F L Temperature Source Temporal Pulse Rate 85 100 Respiratory Rate 26 H 26 H Respiratory Effort Respiratory Depth Respiratory Pattern Tachypnea Blood Pressure 157/75 H Blood Pressure Mean 102 Pulse Ox 98 95 Oxygen Delivery Method Room Air Nasal Cannula Oxygen Flow Rate (L/min) 3 06/19/23 11:35 06/19/23 11:36 06/19/23 12:49 Temperature 97.6 F L 98.1 F Temperature Source Temporal Temporal Pulse Rate 103 H 89 Respiratory Rate 26 H 30 H Respiratory Effort Short of Breath Labored Respiratory Depth Deep Respiratory Pattern Tachypnea Blood Pressure 159/91 H 130/43 H Blood Pressure Mean 113 72 Pulse Ox 94 95 Oxygen Delivery Method Nasal Cannula Room Air Nasal Cannula Oxygen Flow Rate (L/min) 3 2 06/19/23 12:51 06/19/23 13:05 Temperature 98 F Temperature Source Temporal Pulse Rate 89 89 Respiratory Rate 26 H 31 H Respiratory Effort Respiratory Depth Respiratory Pattern Tachypnea Blood Pressure 148/60 H Blood Pressure Mean 89 Pulse Ox 94 Oxygen Delivery Method Nasal Cannula Oxygen Flow Rate (L/min) 3 <Dr. Herrera Thompson DO - Last Filed: 06/19/23 16:07> Physical Exam Const Vital Signs: 06/19/23 10:51 06/19/23 11:21 06/19/23 11:22 Temperature 97.3 F L Temperature Source Temporal Pulse Rate 85 100 Respiratory Rate 26 H 26 H Respiratory Effort Respiratory Depth Respiratory Pattern Tachypnea Blood Pressure 157/75 H Blood Pressure Mean 102 Pulse Ox 98 95 Oxygen Delivery Method Room Air Nasal Cannula Oxygen Flow Rate (L/min) 3 06/19/23 11:35 06/19/23 11:36 06/19/23 12:49 Temperature 97.6 F L 98.1 F Temperature Source Temporal Temporal Pulse Rate 103 H 89 Respiratory Rate 26 H 30 H Respiratory Effort Short of Breath Labored Respiratory Depth Deep Respiratory Pattern Tachypnea Blood Pressure 159/91 H 130/43 H Blood Pressure Mean 113 72 Pulse Ox 94 95 Oxygen Delivery Method Nasal Cannula Room Air Nasal Cannula Oxygen Flow Rate (L/min) 3 2 06/19/23 12:51 06/19/23 13:05 Temperature 98 F Temperature Source Temporal Pulse Rate 89 89 Respiratory Rate 26 H 31 H Respiratory Effort Respiratory Depth Respiratory Pattern Tachypnea Blood Pressure 148/60 H Blood Pressure Mean 89 Pulse Ox 94 Oxygen Delivery Method Nasal Cannula Oxygen Flow Rate (L/min) 3 MDM <WILMER Ramos - Last Filed: 06/19/23 12:59> MDM Lab Data Labs: Laboratory Results - last 24 hr 06/19/23 11:27 WBC 10.8 RBC 3.71 L Hgb 12.3 Hct 36.9 L MCV 99.5 H MCH 33.2 H MCHC 33.3 RDW Std Deviation 47.9 H RDW Coeff of Ha 13.1 Plt Count 168 MPV 10.4 Immature Gran % (Auto) 0.400 Neut % (Auto) 83.4 H Lymph % (Auto) 6.1 L [place] % (Auto) 9.6 Eos % (Auto) 0.2 Baso % (Auto) 0.3 Absolute Neuts (auto) 9.0 H Absolute Lymphs (auto) 0.66 L Nucleated RBC % 0 Sodium 137 Potassium 3.7 Chloride 104 Carbon Dioxide 27.0 Anion Gap 6 BUN 44 H Creatinine 1.51 H Estim Creat Clear Calc 21.54 Est GFR (MDRD) Af Amer 42 L Est GFR (MDRD) Non-Af 35 L BUN/Creatinine Ratio 29.1 H Glucose 216 H Calcium 8.8 Troponin I High Sens 16 B-Natriuretic Peptide 312.5 H Radiography Diagnostic Testing: Clinical Impression(s) from Imaging Studies Chest X-Ray 06/19/23 12:04 IMPRESSION: No radiographic evidence of acute cardiopulmonary disease. Electronically Signed: Gene Canales MD at 12:27 EST , Treatment and Re-Evaluation :: Patient appears to be in mild distress secondary to increased shortness of breath, cough, wheezing that is been ongoing for last 3 days. Differential diagnosis includes community-acquired pneumonia, COVID-19, influenza, COPD exacerbation. Patient will receive breathing treatments, IV steroids. Patient received a chest x-ray, laboratory values including 2 troponins to rule out any ACS, MA, CBC to rule out any leukocytosis, BMP to rule out any electrolyte abnormalities, BNP to rule out any fluid overload. Patient's respiratory rate did improve after the treatments. Patient patient's laboratory values showed a normal CBC, patient's chemistries did show some renal sufficiency with a creatinine of 1.5 however the this seems to be baseline since 2022. Patient's BNP is slightly elevated 312. Patient's chest x-ray showed no acute process, COVID-19 and influenza were negative. On reevaluation, patient does have some crackles to the right upper lobe. I did perform 2 more breathing treatments. Patient will need to be admitted to the hospital for hypoxia, COPD exacerbation. At this time, there is no significant infectious-like symptoms. I did speak with the hospitalist who will admit the patient, we did discuss antibiotics however the hospice would like to get a full respiratory panel and then decide on antibiotics at that time. Patient be MedSurg observation at this time. <Dr. Herrera Thompson, DO - Last Filed: 06/19/23 16:07> [facility] Narrative Medical decision making narrative: I have personally performed a face to face assessment of the patient and have reviewed the DELIA Note. I performed a substantive portion of the visit including all aspects of the following. My nesbitt findings include: History: Patient presents with shortness of breath that has been getting worse over the past 3 days. Patient states it is gradually gotten worse. Patient states her breathing is worse with any exertion. Patient states nothing seems to help with it. Patient states she is coughing up some green sputum. Patient also admits to some rhinorrhea. Patient denies any fevers or chills. Patient denies any chest pain. Patient does admit to some pain in her back. Exam: Vital signs are stable except for mild tachypnea of 26. Patient is afebrile. Patient is in no acute distress. Oral mucosa is pink and moist. Neck is supple. Trachea is midline. Heart was regular rate and rhythm. Lungs showed diffuse expiratory wheezing. There is adequate respiratory effort noted. There are no retractions noted. Abdomen is soft. Bowel sounds are normal. There is no tenderness. Cranial nerves II through XII are intact. There are no focal motor or sensory deficits noted. Extremities are intact. There is no calf tenderness or edema. Medical Decision Making: Differential diagnosis includes COPD exacerbation, pneumonia, viral illness, congestive heart failure, cardiac dysrhythmia, and cardiac ischemia. Chest x-ray will be obtained to assess for pneumonia and pneumothorax. EKG will be obtained to assess for cardiac dysrhythmia and cardiac ischemia. CBC will be obtained to assess for leukocytosis and anemia. Basic metabolic profile will be obtained to assess for electrolyte abnormality and renal function. BNP will be obtained to assess for congestive heart failure. High-sensitivity troponin will be obtained to assess for cardiac ischemia. CBC was reviewed and was essentially within normal limits. Basic metabolic profile was reviewed. BUN was 44 and creatinine was 1.51. This is stable compared to previous results. High-sensitivity troponin was reviewed and was normal at 16. BNP was reviewed and was 312.5. Portable 1 view chest x-ray was obtained. On my independent interpretation, lung bansal are clear. There is normal cardiac silhouette. Bony thorax is normal. There is no acute process noted. Radiologist also interpreted the x-ray and agrees. COVID-19 rapid antigen was reviewed and was negative. Influenza A and influenza B antigens were reviewed and were negative. EKG was obtained. On my independent interpretation, shows sinus tachycardia with a rate of 103. SC interval was normal at 158 ms. QRS interval was 118 ms. QTc interval was slightly prolonged at 524 ms. There is right axis deviation at 152. There are nonspecific ST-T wave changes. Patient was given a DuoNeb aerosol here initially. Patient was given repeat albuterol aerosols. Patient was still somewhat short of breath. Case was discussed with the hospitalist for admission. She will admit the patient to her service. She recommended obtaining a respiratory panel. This was ordered. Patient and family understood and were agreeable with the plan. All questions were answered. Lab Data Labs: Laboratory Results - last 24 hr 06/19/23 11:27 WBC 10.8 RBC 3.71 L Hgb 12.3 Hct 36.9 L MCV 99.5 H MCH 33.2 H MCHC 33.3 RDW Std Deviation 47.9 H RDW Coeff of Ha 13.1 Plt Count 168 MPV 10.4 Immature Gran % (Auto) 0.400 Neut % (Auto) 83.4 H Lymph % (Auto) 6.1 L [place] % (Auto) 9.6 Eos % (Auto) 0.2 Baso % (Auto) 0.3 Absolute Neuts (auto) 9.0 H Absolute Lymphs (auto) 0.66 L Nucleated RBC % 0 Sodium 137 Potassium 3.7 Chloride 104 Carbon Dioxide 27.0 Anion Gap 6 BUN 44 H Creatinine 1.51 H Estim Creat Clear Calc 21.54 Est GFR (MDRD) Af Amer 42 L Est GFR (MDRD) Non-Af 35 L BUN/Creatinine Ratio 29.1 H Glucose 216 H Calcium 8.8 Troponin I High Sens 16 B-Natriuretic Peptide 312.5 H Radiography Chest X-Ray - ED: 1 View, Read by ED Physician, Read by Radiologist and No Acute Disease Diagnostic Testing: Clinical Impression(s) from Imaging Studies Chest X-Ray 06/19/23 12:04 IMPRESSION: No radiographic evidence of acute cardiopulmonary disease. Electronically Signed: Gene Canales MD at 12:27 EST , Management Discussion w/another healthcare provider: Hospitalist (Dr Campa) Discharge Plan Dx/Rx/DC Orders Clinical Impression: Acute exacerbation of chronic obstructive pulmonary disease, Hypoxia Disposition Disposition: Acute Care Hospital [facility] Discharge Date/Time: 06/19/23 14:07
[2023-06-19 11:34] LABS: Absolute Lymphocyte Count 0.66 X10^3/uL (0.83-4.51); Basophil# 0.03 X10^3/uL; Basophil% 0.3 % (0-1); Eosinophil# 0.02 X10^3/uL; Eosinophils% 0.2 % (0-5); Hematocrit 36.9 % (37-47); Hemoglobin 12.3 g/dL (12.0-15.0); Lymphocyte # 0.66 X10^3/ul (0.83-4.51); Lymphocyte % 6.1 % (19-41); Mean Corp Hgb Conc 33.3 g/dL (32-36); Mean Corpuscular Hgb 33.2 pg (27.0-32.0); Mean Corpuscular Volume 99.5 fL (81-99); Mean Platelet Vol. 10.4 fl (6.2-12.0); Monocyte# 1.04 X10^3/uL; Monocyte% 9.6 % (0-10); NRBC Flagged by Analyzer 0 % (0-5); Neutrophil # 9.01 X10^3/uL (2.7-7.7); Neutrophil % 83.4 % (47-70); Platelet Count 168 K/mm3 (150-450); RBC Distribution Width CV 13.1 % (11.6-14.6); RBC Distribution Width SD 47.9 fl (35.1-43.9); Red Blood Count 3.71 M/mm3 (4.2-5.4); White Blood Count 10.8 K/mm3 (4.4-11.0)
[2023-06-19] MEDS: Albuterol 2.5 MG/3 ML VIAL.NEB. INHALATION ×2 (11:34→12:50)
[2023-06-19] MEDS: MethylPREDNISolone 125 MG/2 ML Vial IV (11:34)
[2023-06-19] MEDS: Ipratropium/Albuterol Sulfate 3 ML AMPUL.NEB INHALATION ×3 (11:34→20:20)
[2023-06-19 12:04] LABS: Anion Gap 6 (5-15); BUN 44 mg/dL (7-18); BUN/Creat Ratio 29.1 RATIO (10-20); Calcium,Total 8.8 mg/dL (8.5-10.1); Chloride 104 mmol/L (98-107); Creatinine, Serum 1.51 mg/dL (0.55-1.02); EST Glomerular Filtration Rate 35 mL/min (>60); Est Glom Filt Rate - Afr Amer 42 mL/min (>60); Estimated Creatinine Clearance 21.54 ml/min; Glucose 216 mg/dL (74-106); Potassium 3.7 mmol/L (3.5-5.1); Sodium Level 137 mmol/L (136-145); Troponin-I HS (w/2H Reflex) 16 pg/mL (3.0-54.0)
--- NOTE | 2023-06-19 12:04 | RAD_ITS ---
INDICATION: cough EXAMINATION/TECHNIQUE: X-RAY - XR Chest 1 View COMPARISON: Prior study dated: 02/03/2021 FINDINGS: LINES/DEVICES: None. LUNGS: No consolidation, edema or effusion. No pneumothorax. MEDIASTINUM AND CARDIOVASCULAR STRUCTURES: Cardiac silhouette not enlarged. Central airways and mediastinal contour are unremarkable. BONES AND SOFT TISSUES: Unremarkable. RAD/Chest 1 View (Portable) IMPRESSION: No radiographic evidence of acute cardiopulmonary disease. Electronically Signed: Gene Canales MD at 12:27 EST ,
[2023-06-19 12:21] LABS: BNP,B-Type NATRIURETIC PEPTIDE 312.5 pg/mL (0-100)
--- NOTE | 2023-06-19 12:53 | HP.PCM_ITS ---
HPI - General General Date of Admission: 06/19/23 Date of Service: 06/19/23 Chief Complaint: shortness of breath HPI Narrative DICK ARTIS, is a 87 F with a PMH as outlined who presents via the ED on 06/19/2023 with a complaint of shortness of breath. Shortness of breath had been going on for about 3 days prior to admission and she had an associated cough which is productive of green sputum. She denied any fever or chills, any palpitations or dizziness, nausea vomiting or any other symptoms. He was found to be saturating at 85% on room air and went up to 94% on 4 L of oxygen. Patient claimed that she had quit smoking several years ago but daughter suspected that patient was secretly still smoking. Vitals in the ED were blood pressure 130/43, temperature of 98.1 and pulse rate of 89. Respirate rate was 13 she was saturating at 95% on 2 L of oxygen. CBC showed hemoglobin of 12.3 with WBC of 10.8 and platelets of 168. Chemistry shows sodium of 137 with creatinine of 1.51 potassium of 3.7. Initial troponin was negative and BNP was 312.5. COVID and flu test was negative. Respiratory panel had not been done yet. She is being admitted to be managed for hypoxia due to probable COPD exacerbation. [facility] Medical History Bilateral carotid artery stenosis Claudication Diverticulosis Dyslipidemia Essential hypertension Limb weakness Neck and back pain PAD (peripheral artery disease) Renal cyst RLS (restless legs syndrome) Shoulder pain TIA (transient ischemic attack) Home Medications atorvastatin 40 mg tablet 40 mg PO QHS 02/22/16 [History Last Taken 06/18/23] clopidogrel 75 mg tablet 75 mg PO DAILY 02/22/16 [History Last Taken 06/19/23] multivitamin with folic acid 400 mcg tablet 1 tab PO DAILY 02/22/16 [History Last Taken 06/19/23] pramipexole 0.5 mg tablet 1.5 mg PO QHS 02/22/16 [History Last Taken 06/18/23] spironolactone 25 mg tablet 25 mg PO DAILY 02/22/16 [History Last Taken 06/19/23] albuterol sulfate 90 mcg/actuation aerosol inhaler 2 puff inhalation BID PRN Sob &/Or Wheezing 03/16/18 [History Last Taken 06/19/23] cholecalciferol (vitamin D3) 25 mcg (1,000 unit) tablet 2,500 unit PO DAILY 10/09/18 [History Last Taken 06/19/23] furosemide 40 mg tablet 40 mg PO DAILY #90 tabs 01/27/22 [Rx Last Taken 06/19/23] albuterol sulfate 2.5 mg/3 mL (0.083 %) solution for nebulization 2.5 mg inhalation Q4H PRN shortness of breath or wheezing 05/28/22 [History Last Taken 06/19/23] ipratropium 0.5 mg-albuterol 3 mg (2.5 mg base)/3 mL nebulization soln 3 ml inhalation Q6H PRN shortness of breath 05/28/22 [History Last Taken 06/19/23] budesonide 0.5 mg/2 mL suspension for nebulization 0.25 mg inhalation TID PRN sob 12/06/22 [History Last Taken 06/19/23] losartan 100 mg-hydrochlorothiazide 25 mg tablet 1 tab PO DAILY 12/06/22 [History Last Taken 06/19/23] carvedilol 12.5 mg tablet 12.5 mg PO BID #180 tabs 04/27/23 [Rx Last Taken 06/19/23] Allergy/AdvReac Type Severity Reaction Status Date / Time lisinopril Allergy edema Verified 06/19/23 10:51 aspirin AdvReac Upset Verified 06/19/23 10:51 Stomach Family History Mother Heart disease Surgical History History of basal cell carcinoma excision History of carotid angioplasty History of kidney stones History of thyroid surgery History of total hysterectomy Social History Smoking Status: Former smoker how long ago did patient quit smokin years ago alcohol intake: current alcohol intake frequency: holidays/special occasions on ly details: rare substance use type: does not use caffeine: Yes Type: coffee Number of servings: 1 ROS Review of Systems ROS Unobtainable: Denies due to encephalopathy Constitutional Constitutional: Reports fatigue, malaise and weakness; Denies anorexia, chills or fever(s) Eyes Eyes: Denies change in vision ENT HEENT: Denies dysphagia, headache(s), hearing loss, sore throat or throat swelling Cardiovascular Cardiovascular: Denies chest pain, orthopnea, palpitations, paroxysmal nocturnal dyspnea or syncope Respiratory/Chest Respiratory/Chest: Reports cough, shortness of breath at rest, shortness of breath with exertion and wheezing Gastrointestinal Gastrointestinal: Denies abdominal pain, constipation, diarrhea, nausea or vomiting Genitourinary Genitourinary: Denies dysuria Musculoskeletal Musculoskeletal: Denies back pain or muscle weakness Integumentary Integumentary: Denies dry skin Neurologic Neurologic: Denies confusion, dizziness, focal weakness, headache(s), lack of coordination, seizures, tremor(s) or weakness Psychiatric Psychiatric: Denies anxiety or depression Hematologic/Lymphatic Hematologic/Lymphatic: Denies anemia Vital Signs Vital Signs Vital Signs: 06/19/23 10:51 06/19/23 11:21 06/19/23 11:22 Temperature 97.3 F L Temperature Source Temporal Pulse Rate 85 100 Respiratory Rate 26 H 26 H Respiratory Effort Respiratory Depth Respiratory Pattern Tachypnea Blood Pressure 157/75 H Blood Pressure Mean 102 Pulse Ox 98 95 Oxygen Delivery Method Room Air Nasal Cannula Oxygen Flow Rate (L/min) 3 06/19/23 11:35 06/19/23 11:36 06/19/23 12:49 Temperature 97.6 F L 98.1 F Temperature Source Temporal Temporal Pulse Rate 103 H 89 Respiratory Rate 26 H 30 H Respiratory Effort Short of Breath Labored Respiratory Depth Deep Respiratory Pattern Tachypnea Blood Pressure 159/91 H 130/43 H Blood Pressure Mean 113 72 Pulse Ox 94 95 Oxygen Delivery Method Nasal Cannula Room Air Nasal Cannula Oxygen Flow Rate (L/min) 3 2 06/19/23 12:51 Temperature Temperature Source Pulse Rate 89 Respiratory Rate 26 H Respiratory Effort Respiratory Depth Respiratory Pattern Tachypnea Blood Pressure Blood Pressure Mean Pulse Ox Oxygen Delivery Method Oxygen Flow Rate (L/min) Weight Weight: 156 lb Body Mass Index (BMI) 28.5 Physical Exam Const alert, oriented x3 and no apparent distress Constitutional Narrative: obese General Appearance: cooperative HEENT normocephalic and head/scalp atraumatic Eyes PERRL Neck no lymphadenopathy and supple Lymph Lymphatic: no lymphadenopathy noted and no lymphedema noted Resp Resp Narrative: Diminished breath sounds bibasilarly. Moderate wheezing. No crackles. On 2 L of oxygen. Effort and Inspection: tachypneic Cardio regular rate, regular rhythm, S1 normal heart sound, S2 normal heart sound and no murmurs GI normal to inspection, nondistended, normoactive bowel sounds, soft to palpation, non-tender and non-distended Extremity normal capillary refill, no clubbing, cyanosis or edema and no calf tenderness General Extremity: no tenderness to palpation of joints or extremities Skin General Skin Exam: no breakdown Neuro CN's II-XII intact bilaterally, no focal motor deficits, no sensory deficits noted and deep tendon reflexes 2+ bilaterally Motor Exam: strength 5/5 throughout and general weakness Psych thought process normal and cooperative Appearance: appropriate Results Lab / Micro Data 06/19/23 11:27 06/19/23 11:27 Labs: Laboratory Results - last 24 hr 06/19/23 11:27: WBC 10.8, RBC 3.71 L, Hgb 12.3, Hct 36.9 L, MCV 99.5 H, MCH 33.2 H, MCHC 33.3, RDW Std Deviation 47.9 H, RDW Coeff of Ha 13.1, Plt Count 168, MPV 10.4, Immature Gran % (Auto) 0.400, Neut % (Auto) 83.4 H, Lymph % (Auto) 6.1 L, [place] % (Auto) 9.6, Eos % (Auto) 0.2, Baso % (Auto) 0.3, Absolute Neuts (auto) 9.0 H, Absolute Lymphs (auto) 0.66 L, Nucleated RBC % 0, Sodium 137, Potassium 3.7, Chloride 104, Carbon Dioxide 27.0, Anion Gap 6, BUN 44 H, Creatinine 1.51 H , Estim Creat Clear Calc 21.54, Est GFR (MDRD) Af Amer 42 L, Est GFR (MDRD) Non- Af 35 L, BUN/Creatinine Ratio 29.1 H, Glucose 216 H, Calcium 8.8, Troponin I High Sens 16, B-Natriuretic Peptide 312.5 H Micro: Microbiology 06/19/23 12:07 Nasal Secretion SARS-CoV-2 & FLU Antigen (Rapid) - Final Imagaing Radiology Impression Chest X-Ray 06/19/23 12:04 IMPRESSION: No radiographic evidence of acute cardiopulmonary disease. Electronically Signed: Gene Canales MD at 12:27 EST , Assessment & Plan Assessment/Plan (1) Hypoxia: (2) Acute exacerbation of chronic obstructive pulmonary disease: PLAN: Plan #Hypoxia due to acute exacerbation of probable COPD * Patient was short of breath and wheezing and required up to 4 L of oxygen as she was saturating at 85% on room air. * Patient states that she has stopped smoking but daughters feel that she is likely still smoking. * Chest x-ray showed no acute cardiopulmonary process. BNP slightly elevated at 312.5. * Admit to PCU. IV Solu-Medrol 40 mg every 8. Breathing treatments bronchodilators. Titrate oxygen to maintain saturation above 90%. * Do a full respiratory panel. COVID and flu antigen test were negative. * Sputum culture she has a cough productive of greenish sputum. * start on IV levofloxacin due to cough productive of greenish sputum * #Hyperlipidemia: On statin #Hypertension: On carvedilol #Hypertension: On losartan and hydrochlorothiazide #Restless leg syndrome: Pramipexole #Moderate pulmonary hypertension: * 2D echo from 06/22/2022 showed right ventricular systolic pressure 47 mmHg. She also has stage II diastolic dysfunction. * Elevated RVSP is likely due to underlying lung disease. * DVT prophylaxis: Lovenox CODE STATUS: full code * Patient counseled extensively about different types of CODE STATUS including full code, DNR CCA and DNR CCA. Patient elects to be full code Total [id number] time 17 minutes. Charges/Coding Visit Charges Inpatient E&M: 46223 Init Hosp L3 Procedures Hospitalists Procedures: 98697 Advncd Care Plan 30 Min
[2023-06-19 13:30] LABS: Reflex Troponin-HS? (from REC) Y
[2023-06-19 14:11] LABS: Troponin-I HS 17 pg/mL (3.0-54.0)
[2023-06-19] MEDS: 0.9% Saline Lock 10 ML Syringe IV (17:05)
[2023-06-19] MEDS: levoFLOXacin IV 500 MG/100 ML BAG 100 MG IV (17:05)
[2023-06-19] MEDS: Carvedilol 12.5 MG Tablet PO (21:22)
[2023-06-19] MEDS: Pramipexole Di-HCl 0.5 MG Tablet 1.5 MG PO (21:22)
[2023-06-20] VITALS (11 sets, daily range): BP systolic 113–141; BP diastolic 40–84; PULSE 75–87; RESP 18–22; TEMP 36.4–36.7; O2SAT 93–98
[2023-06-20] MEDS: Glycerin/Hypromellose/PEG400 15 ml Bottle 2 DRP EACH EYE (02:16)
[2023-06-20] MEDS: 0.9% Saline Lock 10 ML Syringe IV ×4 (05:12→22:04)
[2023-06-20 06:38] LABS: Absolute Lymphocyte Count 0.44 X10^3/uL (0.83-4.51); Absolute Neutrophil Count 7.6 X10^3/uL (2.0-7.7); Basophil# 0.02 X10^3/uL; Basophil% 0.2 % (0-1); Hematocrit 34.3 % (37-47); Hemoglobin 10.9 g/dL (12.0-15.0); Lymphocyte # 0.44 X10^3/ul (0.83-4.51); Lymphocyte % 5.2 % (19-41); Mean Corp Hgb Conc 31.8 g/dL (32-36); Mean Corpuscular Hgb 32.3 pg (27.0-32.0); Mean Corpuscular Volume 101.8 fL (81-99); Mean Platelet Vol. 10.6 fl (6.2-12.0); Monocyte# 0.39 X10^3/uL; Monocyte% 4.6 % (0-10); NRBC Flagged by Analyzer 0 % (0-5); Neutrophil # 7.62 X10^3/uL (2.7-7.7); Neutrophil % 89.8 % (47-70); POSITIVE DIFFERENTIAL YES; Platelet Count 168 K/mm3 (150-450); RBC Distribution Width CV 13.1 % (11.6-14.6); Red Blood Count 3.37 M/mm3 (4.2-5.4); White Blood Count 8.5 K/mm3 (4.4-11.0)
[2023-06-20 06:53] LABS: Differential Indicated SCAN CRITERIA MET
[2023-06-20 07:22] LABS: Anion Gap 6 (5-15); BUN 49 mg/dL (7-18); BUN/Creat Ratio 32.2 RATIO (10-20); Calcium,Total 8.4 mg/dL (8.5-10.1); Chloride 105 mmol/L (98-107); Creatinine, Serum 1.52 mg/dL (0.55-1.02); EST Glomerular Filtration Rate 35 mL/min (>60); Est Glom Filt Rate - Afr Amer 42 mL/min (>60); Estimated Creatinine Clearance 20.42 ml/min; Glucose 203 mg/dL (74-106); Potassium 3.9 mmol/L (3.5-5.1); Sodium Level 137 mmol/L (136-145)
[2023-06-20] MEDS: Multivitamins,Therapeutic Tablet 1 TABLET PO (09:59)
[2023-06-20] MEDS: Spironolactone 25 MG Tablet PO (10:00)
[2023-06-20] MEDS: Losartan Potassium 100 MG Tablet PO (10:00)
[2023-06-20] MEDS: Clopidogrel Bisulfate 75 MG Tablet PO (10:00)
[2023-06-20] MEDS: hydroCHLOROthiazide 25 MG Tablet PO (10:00)
[2023-06-20] MEDS: Furosemide 40 MG Tablet PO (10:00)
[2023-06-20] MEDS: Carvedilol 12.5 MG Tablet PO ×2 (10:00→22:02)
[2023-06-20] MEDS: Enoxaparin 30 MG/0.3 ML Syringe SC (10:01)
[2023-06-20] MEDS: levoFLOXacin IV 250 MG/50 ML BAG 50 MG IV (10:05)
[2023-06-20] MEDS: Ipratropium/Albuterol Sulfate 3 ML AMPUL.NEB INHALATION ×3 (10:07→20:39)
[2023-06-20] MEDS: Ciprofloxacin 0.3% 2.5ml Bottle 1 DRP EACH EYE ×5 (10:18→22:00)
--- NOTE | 2023-06-20 10:19 | PN_ITS ---
Subjective Subjective Patient seen and examined. She said her shortness of breath is improving. She denies any chest pain, and says she is still coughing, bringing up greenish sputum. Review of systems is otherwise negative. She has remained hemodynamically stable. Objective Data Objective Data Vital Signs: Vital Signs Temp Pulse Resp BP Pulse Ox O2 Del Method O2 Flow Rate 98.1 F 78 18 127/84 H 96 Nasal Cannula 4 06/20/23 09:02 06/20/23 09:02 06/20/23 09:02 06/20/23 09:02 06/20/23 09:02 06/20/23 09:02 06/20/23 09:02 Oxygen Flow Rate (L/min) 4 Oxygen Delivery Method Nasal Cannula Weight: 156 lb Body Mass Index (BMI) 29.5 Intake & Output: Intake and Output for Last 24 Hours 06/18/23 06/19/23 06/20/23 23:59 23:59 23:59 Intake Total 100 / 220 320 / 320 Balance 100 / 220 320 / 320 Lab / Micro Data 06/20/23 06:10 06/20/23 06:10 Labs: Laboratory Results - last 24 hr 06/19/23 11:27: WBC 10.8, RBC 3.71 L, Hgb 12.3, Hct 36.9 L, MCV 99.5 H, MCH 33.2 H, MCHC 33.3, RDW Std Deviation 47.9 H, RDW Coeff of Ha 13.1, Plt Count 168, MPV 10.4, Immature Gran % (Auto) 0.400, Neut % (Auto) 83.4 H, Lymph % (Auto) 6.1 L, [place] % (Auto) 9.6, Eos % (Auto) 0.2, Baso % (Auto) 0.3, Absolute Neuts (auto) 9.0 H, Absolute Lymphs (auto) 0.66 L, Nucleated RBC % 0, Sodium 137, Potassium 3.7, Chloride 104, Carbon Dioxide 27.0, Anion Gap 6, BUN 44 H, Creatinine 1.51 H , Estim Creat Clear Calc 21.54, Est GFR (MDRD) Af Amer 42 L, Est GFR (MDRD) Non- Af 35 L, BUN/Creatinine Ratio 29.1 H, Glucose 216 H, Calcium 8.8, Troponin I High Sens 16, B-Natriuretic Peptide 312.5 H 06/19/23 13:30: Troponin I High Sens 17 06/20/23 06:10: WBC 8.5, RBC 3.37 L, Hgb 10.9 L, Hct 34.3 L, MCV 101.8 H, MCH 32.3 H, MCHC 31.8 L, RDW Std Deviation 49.0 H, RDW Coeff of Ha 13.1, Plt Count 168, MPV 10.6, Immature Gran % (Auto) 0.200, Neut % (Auto) 89.8 H, Lymph % (Auto) 5.2 L, [place] % (Auto) 4.6, Eos % (Auto) 0.0, Baso % (Auto) 0.2, Absolute N euts (auto) 7.6, Absolute Lymphs (auto) 0.44 L, Nucleated RBC % 0, Differential Comment COMMENT, Sodium 137, Potassium 3.9, Chloride 105, Carbon Dioxide 26.0, Anion Gap 6, BUN 49 H, Creatinine 1.52 H, Estim Creat Clear Calc 20.42, Est GFR (MDRD) Af Amer 42 L, Est GFR (MDRD) Non-Af 35 L, BUN/Creatinine Ratio 32.2 H, Glucose 203 H, Calcium 8.4 L Micro: Microbiology 06/19/23 13:10 Mucosa - Nasopharyngeal Respiratory Panel (PCR) - Final 06/19/23 12:07 Nasal Secretion SARS-CoV-2 & FLU Antigen (Rapid) - Final Radiography Diagnostic Testing: Radiology Impression Chest X-Ray 06/19/23 12:04 IMPRESSION: No radiographic evidence of acute cardiopulmonary disease. Electronically Signed: Gene Canales MD at 12:27 EST , Physical Exam Const alert, oriented x3 and no apparent distress Constitutional Narrative: obese General Appearance: cooperative HEENT normocephalic and head/scalp atraumatic Eyes PERRL Neck no lymphadenopathy and supple Lymph Lymphatic: no lymphadenopathy noted and no lymphedema noted Resp Resp Narrative: Diminished breath sounds bibasilarly. Mild wheezing. No crackles. On 4L of oxygen. Cardio regular rate, regular rhythm, S1 normal heart sound, S2 normal heart sound and no murmurs GI normal to inspection, nondistended, normoactive bowel sounds, soft to palpation, non-tender and non-distended Extremity normal capillary refill, no clubbing, cyanosis or edema and no calf tenderness General Extremity: no tenderness to palpation of joints or extremities Skin General Skin Exam: no breakdown Neuro CN's II-XII intact bilaterally, no focal motor deficits, no sensory deficits noted and deep tendon reflexes 2+ bilaterally Motor Exam: strength 5/5 throughout and general weakness Psych thought process normal and cooperative Appearance: appropriate Assessment & Plan Assessment/Plan (1) Hypoxia: (2) Acute exacerbation of chronic obstructive pulmonary disease: PLAN: Plan #Hypoxia due to acute exacerbation of probable COPD * on 2L of oxygen by nasal canula * on IV solumedrol, IV levaquin and breathing treatment with bronchodilators * titrate oxygen to maintain sats >90% * troponins not elevated * respiratory panel negative. Covid and flu antigen tests also negative * sputum culture pending * #BIlateral conjuctivitis * has erythema of both conjuctiva, with some moderate purulent discharge * concerned that this may be viral, as it is bilateral. However, in light of the moderate discharge, will start on ciprofloxacin eye drops. * #Hyperlipidemia: On statin #Hypertension: On carvedilol #Hypertension: On losartan and hydrochlorothiazide #Restless leg syndrome: Pramipexole #Moderate pulmonary hypertension: * 2D echo from 06/22/2022 showed right ventricular systolic pressure 47 mmHg. She also has stage II diastolic dysfunction. * Elevated RVSP is likely due to underlying lung disease. * DVT prophylaxis: Lovenox CODE STATUS: full code * Charges/Coding Visit Charges Inpatient E&M: 61177 Subs Hosp L2
--- NOTE | 2023-06-20 16:47 | CASEMGMT ---
Met with patient to complete ALONZO form. ALONZO form explained to patient who voiced understanding and signed form. Original form placed in pt?s chart and copy provided to patient.? Aiyana Leon, Discharge Planning Asst
[2023-06-20] MEDS: MELATONIN 3 MG TABLET PO (22:01)
[2023-06-20] MEDS: Temazepam 15 MG Capsule PO (22:01)
[2023-06-20] MEDS: Atorvastatin Calcium 40 MG Tablet PO (22:03)
[2023-06-20] MEDS: Pramipexole Di-HCl 0.5 MG Tablet 1.5 MG PO (22:03)
[2023-06-21] VITALS (11 sets, daily range): BP systolic 120–138; BP diastolic 35–58; PULSE 61–89; RESP 18–24; TEMP 36.4–36.6; O2SAT 93–99
[2023-06-21] MEDS: Ciprofloxacin 0.3% 2.5ml Bottle 1 DRP EACH EYE ×11 (03:44→22:57)
[2023-06-21] MEDS: 0.9% Saline Lock 10 ML Syringe IV ×3 (05:13→21:23)
[2023-06-21] MEDS: Ipratropium/Albuterol Sulfate 3 ML AMPUL.NEB INHALATION ×5 (05:18→22:05)
[2023-06-21 07:41] LABS: Absolute Lymphocyte Count 0.46 X10^3/uL (0.83-4.51); Basophil# 0.01 X10^3/uL; Basophil% 0.1 % (0-1); Hematocrit 34.5 % (37-47); Hemoglobin 10.7 g/dL (12.0-15.0); Lymphocyte # 0.46 X10^3/ul (0.83-4.51); Lymphocyte % 5.2 % (19-41); Mean Corpuscular Hgb 32.4 pg (27.0-32.0); Mean Corpuscular Volume 104.5 fL (81-99); Mean Platelet Vol. 10.4 fl (6.2-12.0); Monocyte# 0.43 X10^3/uL; Monocyte% 4.8 % (0-10); NRBC Flagged by Analyzer 0 % (0-5); Neutrophil % 89.6 % (47-70); POSITIVE DIFFERENTIAL YES; Platelet Count 172 K/mm3 (150-450); RBC Distribution Width CV 13.2 % (11.6-14.6); RBC Distribution Width SD 50.7 fl (35.1-43.9); White Blood Count 8.9 K/mm3 (4.4-11.0)
[2023-06-21 07:44] LABS: Differential Indicated SCAN CRITERIA MET
[2023-06-21 08:12] LABS: Anion Gap 4 (5-15); BUN 65 mg/dL (7-18); BUN/Creat Ratio 38.2 RATIO (10-20); Calcium,Total 8.3 mg/dL (8.5-10.1); Chloride 108 mmol/L (98-107); EST Glomerular Filtration Rate 30 mL/min (>60); Est Glom Filt Rate - Afr Amer 37 mL/min (>60); Estimated Creatinine Clearance 18.26 ml/min; Glucose 174 mg/dL (74-106); Potassium 4.1 mmol/L (3.5-5.1); Sodium Level 140 mmol/L (136-145)
[2023-06-21] MEDS: levoFLOXacin IV 250 MG/50 ML BAG 50 MG IV (08:14)
[2023-06-21] MEDS: hydroCHLOROthiazide 25 MG Tablet PO (08:15)
[2023-06-21] MEDS: Clopidogrel Bisulfate 75 MG Tablet PO (08:15)
[2023-06-21] MEDS: Furosemide 40 MG Tablet PO (08:15)
[2023-06-21] MEDS: Spironolactone 25 MG Tablet PO (08:16)
[2023-06-21] MEDS: Multivitamins,Therapeutic Tablet 1 TABLET PO (08:16)
[2023-06-21] MEDS: Enoxaparin 30 MG/0.3 ML Syringe SC (08:17)
[2023-06-21] MEDS: Carvedilol 12.5 MG Tablet PO ×2 (08:17→21:17)
[2023-06-21] MEDS: Losartan Potassium 100 MG Tablet PO (08:17)
--- NOTE | 2023-06-21 10:03 | PN_ITS ---
Subjective Subjective Patient seen and examined. She says she feels she has improved a bit, but feels short of breath still, especially with slight exertion. REview of systems is otherwise negative. Objective Data Objective Data Vital Signs: Vital Signs Temp Pulse Resp BP Pulse Ox O2 Del Method O2 Flow Rate 97.5 F L 79 20 H 121/48 H 95 Nasal Cannula 2 06/21/23 08:09 06/21/23 08:09 06/21/23 08:09 06/21/23 08:09 06/21/23 08:09 06/21/23 09:39 06/21/23 09:39 Oxygen Flow Rate (L/min) 2 Oxygen Delivery Method Nasal Cannula Weight: 156 lb Body Mass Index (BMI) 29.5 Intake & Output: Intake and Output for Last 24 Hours 06/19/23 06/20/23 06/21/23 23:59 23:59 23:59 Intake Total 100 / 220 370 / 370 50 / 50 Balance 100 / 220 370 / 370 50 / 50 Lab / Micro Data 06/21/23 07:20 06/21/23 07:20 Labs: Laboratory Results - last 24 hr 06/21/23 07:20: WBC 8.9, RBC 3.30 L, Hgb 10.7 L, Hct 34.5 L, MCV 104.5 H, MCH 32.4 H, MCHC 31.0 L, RDW Std Deviation 50.7 H, RDW Coeff of Ha 13.2, Plt Count 172, MPV 10.4, Immature Gran % (Auto) 0.300, Neut % (Auto) 89.6 H, Lymph % (Auto) 5.2 L, [place] % (Auto) 4.8, Eos % (Auto) 0.0, Baso % (Auto) 0.1, Absolute Neuts (auto) 8.0 H, Absolute Lymphs (auto) 0.46 L, Nucleated RBC % 0, Sodium 140, Potassium 4.1, Chloride 108 H, Carbon Dioxide 28.0, Anion Gap 4 L, BUN 65 H , Creatinine 1.70 H, Estim Creat Clear Calc 18.26, Est GFR (MDRD) Af Amer 37 L, Est GFR (MDRD) Non-Af 30 L, BUN/Creatinine Ratio 38.2 H, Glucose 174 H, Calcium 8.3 L Micro: Microbiology 06/21/23 03:47 Sputum, Expectorated/Coughed Gram Stain - Final 06/19/23 13:10 Mucosa - Nasopharyngeal Respiratory Panel (PCR) - Final 06/19/23 12:07 Nasal Secretion SARS-CoV-2 & FLU Antigen (Rapid) - Final Physical Exam Const alert, oriented x3 and no apparent distress Constitutional Narrative: obese General Appearance: cooperative HEENT normocephalic and head/scalp atraumatic Eyes PERRL Eyes Narrative: erythema of bilateral conjuctivae has improved significantly. Neck no lymphadenopathy and supple Lymph Lymphatic: no lymphadenopathy noted and no lymphedema noted Resp Resp Narrative: Diminished breath sounds bibasilarly. Mild wheezing. No crackles. On 2L of oxygen. Cardio regular rate, regular rhythm, S1 normal heart sound, S2 normal heart sound and no murmurs GI normal to inspection, nondistended, normoactive bowel sounds, soft to palpation, non-tender and non-distended Extremity normal capillary refill, no clubbing, cyanosis or edema and no calf tenderness General Extremity: no tenderness to palpation of joints or extremities Skin General Skin Exam: no breakdown Neuro CN's II-XII intact bilaterally, no focal motor deficits, no sensory deficits noted and deep tendon reflexes 2+ bilaterally Motor Exam: strength 5/5 throughout and general weakness Psych thought process normal and cooperative Appearance: appropriate Assessment & Plan Assessment/Plan (1) Hypoxia: (2) Acute exacerbation of chronic obstructive pulmonary disease: PLAN: Plan #Hypoxia due to acute exacerbation of probable COPD * on 2L of oxygen by nasal canula * on IV solumedrol, IV levaquin and breathing treatment with bronchodilators * titrate oxygen to maintain sats >90% * troponins not elevated * respiratory panel negative. Covid and flu antigen tests also negative * sputum culture pending but sputum gram statin showed 3+ gram positive cocci, 2+ gram positive rods and 2+ wbc. * #BIlateral conjuctivitis * has erythema of both conjuctiva, with some moderate purulent discharge * concerned that this may be viral, as it is bilateral. However, in light of the moderate discharge, will start on ciprofloxacin eye drops. * #Hyperlipidemia: On statin #Hypertension: On carvedilol #Hypertension: On losartan and hydrochlorothiazide #Restless leg syndrome: Pramipexole #Moderate pulmonary hypertension: * 2D echo from 06/22/2022 showed right ventricular systolic pressure 47 mmHg. She also has stage II diastolic dysfunction. * Elevated RVSP is likely due to underlying lung disease. * DVT prophylaxis: Lovenox CODE STATUS: full code * * Disposition: for likely DC tomorrow. Patient wants to stay for one more day as she thinks she will be better optimised by tomorrow. Charges/Coding Visit Charges Inpatient E&M: 47961 Subs Hosp L2
[2023-06-21 11:14] LABS: Troponin-I HS 17 pg/mL (3.0-54.0)
[2023-06-21 13:05] LABS: Troponin-I HS 15 pg/mL (3.0-54.0)
--- NOTE | 2023-06-21 14:25 | CASEMGMT ---
RN?CM?STEAM TABLE ATTENDANT?CM?to room to meet with patient for initial transition planning/care coordination?assessment.?RN?CM?introduced self and role at [facility].? Pt voices understanding and consents to?assessment?at this time.? Pt sitting up in chair in room in no distress at this time.? Pt is A/O at this time and answers all questions appropriately.?? Care providers, pharmacy, and demographics verified/updated at this time. PCP: Dr Mortensen Specialists: Dr Dora Delvalle-line tender, Dr Peng-lupe mnluis, [facility]/Cardiology Preferred Pharmacy: [facility] Retail @ discharge Insurance:MMO MCR Prescription Benefit:?Yes Living Will/HPOA:?Pt has done LW and HCPOA, who is her dtrDora LNOK: dtrDora Living Arrangements: Lives alone in one-story home w/basement. Independent w/ADL's and IADL's. Has a cleaning lady come once a month Transportation:?Pt states drives self and states no transportation concerns at this time.? Family will take her home @ discharge. DME: States has the following DME:?built-in shower seat, grab bars, nebulizer from [employer]. Pt does not have a pulse ox, but states she can afford to buy one. No home O2. [employer] is preferred DME co, should she qualify for home O2. ?Pt states no need for further DME at this time.? HHC/SNF: No hx of either. No needs identified. Pt Link: Discussed Pt Link and she is agreeable to referral Pt wishes to return home and states has no concerns with going home at time of discharge.? CM?to follow for home oxygen needs and any further discharge planning/needs.? Pt voices no further concerns/needs at this time.? Advised pt to ask for?CM?if any further questions/concerns/needs arise.? Voices understanding. PLAN:??Home w/Pt Link Follow for possible Home O2 Ruben HERNANDEZN?RN?CM
--- NOTE | 2023-06-21 14:36 | CASEMGMT ---
SW notified patient that her Healthcare Power of Assistant Designer and Healthcare Living Will are not on file at [facility]. Patient said she will bring in copies. Luisa TEAGUE
[2023-06-21] MEDS: guaiFENesin 1,200 MG Tablet 1200 MG PO ×2 (16:19→21:18)
[2023-06-21 17:47] LABS: Troponin-I HS 14 pg/mL (3.0-54.0)
[2023-06-21] MEDS: Atorvastatin Calcium 40 MG Tablet PO (21:17)
[2023-06-21] MEDS: Pramipexole Di-HCl 0.5 MG Tablet 1.5 MG PO (21:18)
[2023-06-21] MEDS: MELATONIN 3 MG TABLET PO (22:57)
[2023-06-22] VITALS (14 sets, daily range): BP systolic 132–143; BP diastolic 42–56; PULSE 71–89; RESP 18–22; TEMP 36.3–36.7; O2SAT 87–100
[2023-06-22] MEDS: Ciprofloxacin 0.3% 2.5ml Bottle 1 DRP EACH EYE ×12 (01:35→23:23)
[2023-06-22] MEDS: Ipratropium/Albuterol Sulfate 3 ML AMPUL.NEB INHALATION ×5 (02:51→19:35)
[2023-06-22] MEDS: 0.9% Saline Lock 10 ML Syringe IV ×3 (05:10→14:58)
[2023-06-22] MEDS: levoFLOXacin IV 250 MG/50 ML BAG 50 MG IV (08:27)
[2023-06-22] MEDS: Enoxaparin 30 MG/0.3 ML Syringe SC (08:28)
[2023-06-22] MEDS: Spironolactone 25 MG Tablet PO (08:28)
[2023-06-22] MEDS: Losartan Potassium 100 MG Tablet PO (08:29)
[2023-06-22] MEDS: hydroCHLOROthiazide 25 MG Tablet PO (08:29)
[2023-06-22] MEDS: Furosemide 40 MG Tablet PO (08:29)
[2023-06-22] MEDS: Multivitamins,Therapeutic Tablet 1 TABLET PO (08:29)
[2023-06-22] MEDS: Clopidogrel Bisulfate 75 MG Tablet PO (08:30)
[2023-06-22] MEDS: Carvedilol 12.5 MG Tablet PO ×2 (08:30→21:26)
[2023-06-22] MEDS: guaiFENesin 1,200 MG Tablet 1200 MG PO ×2 (08:30→21:27)
[2023-06-22 08:43] LABS: Absolute Neutrophil Count 8.6 X10^3/uL (2.0-7.7); Basophil# 0.01 X10^3/uL; Basophil% 0.1 % (0-1); Hematocrit 35.3 % (37-47); Hemoglobin 11.3 g/dL (12.0-15.0); Lymphocyte % 6.3 % (19-41); Mean Corpuscular Hgb 32.8 pg (27.0-32.0); Mean Corpuscular Volume 102.6 fL (81-99); Mean Platelet Vol. 10.3 fl (6.2-12.0); Monocyte# 0.31 X10^3/uL; Monocyte% 3.2 % (0-10); NRBC Flagged by Analyzer 0 % (0-5); Neutrophil # 8.55 X10^3/uL (2.7-7.7); Neutrophil % 89.4 % (47-70); POSITIVE DIFFERENTIAL YES; Platelet Count 179 K/mm3 (150-450); RBC Distribution Width CV 13.2 % (11.6-14.6); RBC Distribution Width SD 49.7 fl (35.1-43.9); Red Blood Count 3.44 M/mm3 (4.2-5.4); White Blood Count 9.6 K/mm3 (4.4-11.0)
[2023-06-22 08:46] LABS: Differential Indicated SCAN CRITERIA MET
[2023-06-22 09:03] LABS: Anion Gap 7 (5-15); BUN 66 mg/dL (7-18); BUN/Creat Ratio 34.6 RATIO (10-20); Calcium,Total 8.5 mg/dL (8.5-10.1); Chloride 106 mmol/L (98-107); Creatinine, Serum 1.91 mg/dL (0.55-1.02); EST Glomerular Filtration Rate 27 mL/min (>60); Est Glom Filt Rate - Afr Amer 32 mL/min (>60); Estimated Creatinine Clearance 16.25 ml/min; Glucose 180 mg/dL (74-106); Potassium 4.1 mmol/L (3.5-5.1); Sodium Level 139 mmol/L (136-145)
--- NOTE | 2023-06-22 10:26 | DS.PCM_ITS ---
Providers Date of Admission: 06/20/23 Primary Care Physician: Dr. Anu Mortensen MD Reason For Visit: ACUTE COPD EXACERBATION Diagnosis Discharge Diagnosis (1) Hypoxia: Status: Acute Code(s): R09.02 - Hypoxemia (2) Acute exacerbation of chronic obstructive pulmonary disease: Status: Chronic Code(s): J44.1 - Chronic obstructive pulmonary disease with (acute) exacerbation Plan #Hypoxia due to acute exacerbation of probable COPD * on 2L of oxygen by nasal canula * on IV solumedrol, IV levaquin and breathing treatment with bronchodilators * titrate oxygen to maintain sats >90% * troponins not elevated * respiratory panel negative. Covid and flu antigen tests also negative * sputum culture pending but sputum gram statin showed 3+ gram positive cocci, 2+ gram positive rods and 2+ wbc. * #BIlateral conjuctivitis * has erythema of both conjuctiva, with some moderate purulent discharge * concerned that this may be viral, as it is bilateral. However, in light of the moderate discharge, will start on ciprofloxacin eye drops. * #Hyperlipidemia: On statin #Hypertension: On carvedilol #Hypertension: On losartan and hydrochlorothiazide #Restless leg syndrome: Pramipexole #Moderate pulmonary hypertension: * 2D echo from 06/22/2022 showed right ventricular systolic pressure 47 mmHg. She also has stage II diastolic dysfunction. * Elevated RVSP is likely due to underlying lung disease. * DVT prophylaxis: Lovenox CODE STATUS: full code Medications at Discharge Home Medications atorvastatin 40 mg tablet 40 mg PO QHS 02/22/16 clopidogrel 75 mg tablet 75 mg PO DAILY 02/22/16 multivitamin with folic acid 400 mcg tablet 1 tab PO DAILY 02/22/16 pramipexole 0.5 mg tablet 1.5 mg PO QHS 02/22/16 spironolactone 25 mg tablet 25 mg PO DAILY 02/22/16 albuterol sulfate 90 mcg/actuation aerosol inhaler 2 puff inhalation BID PRN Sob &/Or Wheezing 03/16/18 cholecalciferol (vitamin D3) 25 mcg (1,000 unit) tablet 2,500 unit PO DAILY 10/09/18 furosemide 40 mg tablet 40 mg PO DAILY #90 tabs 01/27/22 albuterol sulfate 2.5 mg/3 mL (0.083 %) solution for nebulization 2.5 mg inhalation Q4H PRN shortness of breath or wheezing 05/28/22 ipratropium 0.5 mg-albuterol 3 mg (2.5 mg base)/3 mL nebulization soln 3 ml inhalation Q6H PRN shortness of breath 05/28/22 budesonide 0.5 mg/2 mL suspension for nebulization 0.25 mg inhalation TID PRN sob 12/06/22 losartan 100 mg-hydrochlorothiazide 25 mg tablet 1 tab PO DAILY 12/06/22 carvedilol 12.5 mg tablet 12.5 mg PO BID #180 tabs 04/27/23 Weight / BMI Weight Weight: 156 lb Body Mass Index (BMI) 29.5 ABG / Lab / Microbiology Data 06/22/23 08:05 06/22/23 08:05 Laboratory: Laboratory Results - last 24 hr 06/21/23 10:48: Troponin I High Sens 17 06/21/23 12:36: Troponin I High Sens 15 06/21/23 16:42: Troponin I High Sens 14 06/22/23 08:05: WBC 9.6, RBC 3.44 L, Hgb 11.3 L, Hct 35.3 L, MCV 102.6 H, MCH 32.8 H, MCHC 32.0, RDW Std Deviation 49.7 H, RDW Coeff of Ha 13.2, Plt Count 179, MPV 10.3, Immature Gran % (Auto) 1.000 H, Neut % (Auto) 89.4 H, Lymph % (Auto) 6.3 L, [place] % (Auto) 3.2, Eos % (Auto) 0.0, Baso % (Auto) 0.1, Absolute Neuts (auto) 8.6 H, Absolute Lymphs (auto) 0.60 L, Nucleated RBC % 0, Differential Comment COMMENT, Sodium 139, Potassium 4.1, Chloride 106, Carbon Dioxide 26.0, Anion Gap 7, BUN 66 H, Creatinine 1.91 H, Estim Creat Clear Calc 16.25, Est GFR (MDRD) Af Amer 32 L, Est GFR (MDRD) Non-Af 27 L, BUN/Creatinine Ratio 34.6 H, Glucose 180 H, Calcium 8.5 Microbiology: Microbiology 06/21/23 03:47 Sputum, Expectorated/Coughed Gram Stain - Final 06/19/23 13:10 Mucosa - Nasopharyngeal Respiratory Panel (PCR) - Final 06/19/23 12:07 Nasal Secretion SARS-CoV-2 & FLU Antigen (Rapid) - Final Discharge Plan Admission Admit Date/Time: 06/20/23 16:26 Attending Provider: Juan Esteves Primary Care Provider: Anu Mortensen Consulting Providers: Anya Campa Discharge Orders/Prescriptions Prescriptions: No Action cholecalciferol (vitamin D3) 1,000 unit tablet 2,500 unit PO DAILY albuterol sulfate 2.5 mg /3 mL (0.083 %) solution for nebulization 2.5 mg inhalation Q4H PRN (Reason: shortness of breath or wheezing) ipratropium-albuterol 0.5 mg-3 mg(2.5 mg base)/3 mL solution for nebulization 3 ml inhalation Q6H PRN (Reason: shortness of breath) budesonide 0.5 mg/2 mL suspension for nebulization 0.25 mg inhalation TID PRN (Reason: sob) atorvastatin 40 MG tablet 40 mg PO QHS Patient Comments: reduces cholesterol clopidogrel 75 MG tablet 75 mg PO DAILY Patient Comments: blood thinner spironolactone 25 MG tablet 25 mg PO DAILY Patient Comments: water pill/diuretic pramipexole 0.5 MG tablet 1.5 mg PO QHS Patient Comments: restless leg syndrome multivitamin with folic acid 1 TABLET tablet 1 tab PO DAILY Patient Comments: supplement albuterol sulfate 90 mcg/actuation HFA aerosol inhaler 2 puff INHALATION BID PRN (Reason: Sob &/Or Wheezing) Patient Comments: BREATHING losartan-hydrochlorothiazide 100-25 mg tablet 1 tab PO DAILY Patient Comments: 100/25MG. BLOOD PRESSURE/HEART furosemide 40 mg tablet 40 mg PO DAILY Qty: 90 3RF carvedilol 12.5 mg tablet 12.5 mg PO BID Qty: 180 4RF Rx Instructions: must administer with a meal/food Referrals / Follow Up: Anu Mortensen MD [Primary Care Provider] -
--- NOTE | 2023-06-22 17:39 | PN.HOSP_ITS ---
Reason for Visit Reason for Visit: Diagnoses Chronic obstructive pulmonary disease with (acute) exacerbation (06/20/23) Hypoxemia (06/20/23) Objective Data Objective Data Vital Signs: Vital Signs Temp Pulse Resp BP Pulse Ox O2 Del Method O2 Flow Rate 98.0 F 79 20 H 132/42 H 100 Room Air 2 06/22/23 15:01 06/22/23 15:36 06/22/23 15:36 06/22/23 15:01 06/22/23 15:01 06/22/23 15:01 06/22/23 11:43 Oxygen Flow Rate (L/min) [ 2 AMBULATING with Oxygen #1] Oxygen Flow Rate (L/min) 2 Oxygen Delivery Method Room Air Weight: 156 lb Body Mass Index (BMI) 29.5 Intake & Output: Intake and Output for Last 24 Hours 06/20/23 06/21/23 06/22/23 23:59 23:59 23:59 Intake Total 370 / 370 950 / 950 170 / 170 Balance 370 / 370 950 / 950 170 / 170 Lab / Micro Data 06/22/23 08:05 06/22/23 08:05 Labs: Laboratory Results - last 24 hr 06/21/23 16:42: Troponin I High Sens 14 06/22/23 08:05: WBC 9.6, RBC 3.44 L, Hgb 11.3 L, Hct 35.3 L, MCV 102.6 H, MCH 32.8 H, MCHC 32.0, RDW Std Deviation 49.7 H, RDW Coeff of Ha 13.2, Plt Count 179, MPV 10.3, Immature Gran % (Auto) 1.000 H, Neut % (Auto) 89.4 H, Lymph % (Auto) 6.3 L, [place] % (Auto) 3.2, Eos % (Auto) 0.0, Baso % (Auto) 0.1, Absolute Neuts (auto) 8.6 H, Absolute Lymphs (auto) 0.60 L, Nucleated RBC % 0, Differential Comment COMMENT, Sodium 139, Potassium 4.1, Chloride 106, Carbon Dioxide 26.0, Anion Gap 7, BUN 66 H, Creatinine 1.91 H, Estim Creat Clear Calc 16.25, Est GFR (MDRD) Af Amer 32 L, Est GFR (MDRD) Non-Af 27 L, BUN/Creatinine Ratio 34.6 H, Glucose 180 H, Calcium 8.5 Micro: Microbiology 06/21/23 03:47 Sputum, Expectorated/Coughed Gram Stain - Final 06/19/23 13:10 Mucosa - Nasopharyngeal Respiratory Panel (PCR) - Final 06/19/23 12:07 Nasal Secretion SARS-CoV-2 & FLU Antigen (Rapid) - Final Physical Exam Narrative Seen and examined. Patient is still short of breath and wheezy. She is short of breath even at r est. Physical exam General: Alert, Oriented x3, Cooperative HEENT: Atraumatic, PERRLA, EOMI, Normocephalic Oral: No Gingival or Mucosal Lesions/ Ulcerations Neck: Supple, No JVD, Negative Carotid Bruits Lungs: Air entry diminished in bilateral lung bases. Bilateral expiratory rhonchi and wheezing present Cardiovascular: Regular rate, Regular Rhythm, Normal S1, Normal S2, No murmurs Abdomen: Bowel Sounds Present, Soft, Non Tender, Non-Distended : No renal angle tenderness. No suprapubic tenderness. Extremities: No edema, Capillary Refill Less than 3 Seconds Skin: No rashes, No breakdown Musculoskeletal: No Tenderness to Palpation of Joints or Extremities Neurological: Cranial nerves II-XII grossly intact, DTR 2+/4. No acute focal neurological deficit. Psych/Mental Status: Flat affect. Assessment & Plan Assessment/Plan (1) Hypoxia: (2) Acute exacerbation of chronic obstructive pulmonary disease: PLAN: Plan #Hypoxia due to acute exacerbation of probable COPD * on 2L of oxygen by nasal canula * on IV solumedrol, IV levaquin and breathing treatment with bronchodilators * titrate oxygen to maintain sats >90% * troponins not elevated * respiratory panel negative. Covid and flu antigen tests also negative * sputum culture pending but sputum gram statin showed 3+ gram positive cocci, 2+ gram positive rods and 2+ wbc. culture pending. #Bilateral conjuctivitis * has erythema of both conjuctiva, with some moderate purulent discharge * concerned that this may be viral, as it is bilateral. However, in light of the moderate discharge, on ciprofloxacin eye drops. #Hyperlipidemia: On statin #Hypertension: On carvedilol #Hypertension: On losartan and hydrochlorothiazide #Restless leg syndrome: Pramipexole #Moderate pulmonary hypertension: * 2D echo from 06/22/2022 showed right ventricular systolic pressure 47 mmHg. She also has stage II diastolic dysfunction. * Elevated RVSP is likely due to underlying lung disease. * DVT prophylaxis: Lovenox CODE STATUS: full code Charges/Coding Visit Charges Inpatient E&M: 08665 Subs Hosp L2
[2023-06-22] MEDS: Pramipexole Di-HCl 0.5 MG Tablet 1.5 MG PO (21:26)
[2023-06-22] MEDS: Atorvastatin Calcium 40 MG Tablet PO (21:27)
[2023-06-22] MEDS: MELATONIN 3 MG TABLET PO (21:41)
[2023-06-22] MEDS: Albuterol 2.5 MG/3 ML VIAL.NEB. INHALATION (23:12)
[2023-06-23] VITALS (10 sets, daily range): BP systolic 117–141; BP diastolic 48–67; PULSE 77–88; RESP 18–22; TEMP 36.6–36.9; O2SAT 90–98
[2023-06-23] MEDS: Ciprofloxacin 0.3% 2.5ml Bottle 1 DRP EACH EYE ×8 (01:44→21:16)
[2023-06-23] MEDS: Albuterol 2.5 MG/3 ML VIAL.NEB. INHALATION (02:44)
[2023-06-23] MEDS: 0.9% Saline Lock 10 ML Syringe IV ×4 (05:32→21:25)
[2023-06-23 06:26] LABS: Absolute Lymphocyte Count 0.71 X10^3/uL (0.83-4.51); Absolute Neutrophil Count 7.8 X10^3/uL (2.0-7.7); Basophil# 0.03 X10^3/uL; Basophil% 0.3 % (0-1); Hematocrit 35.3 % (37-47); Hemoglobin 11.4 g/dL (12.0-15.0); Lymphocyte # 0.71 X10^3/ul (0.83-4.51); Lymphocyte % 7.9 % (19-41); Mean Corp Hgb Conc 32.3 g/dL (32-36); Mean Corpuscular Hgb 32.4 pg (27.0-32.0); Mean Corpuscular Volume 100.3 fL (81-99); Mean Platelet Vol. 10.6 fl (6.2-12.0); Monocyte# 0.36 X10^3/uL; NRBC Flagged by Analyzer 0 % (0-5); Neutrophil # 7.78 X10^3/uL (2.7-7.7); Platelet Count 185 K/mm3 (150-450); RBC Distribution Width SD 47.7 fl (35.1-43.9); Red Blood Count 3.52 M/mm3 (4.2-5.4)
[2023-06-23 07:08] LABS: Anion Gap 6 (5-15); BUN 72 mg/dL (7-18); BUN/Creat Ratio 39.1 RATIO (10-20); Calcium,Total 8.6 mg/dL (8.5-10.1); Chloride 107 mmol/L (98-107); Creatinine, Serum 1.84 mg/dL (0.55-1.02); EST Glomerular Filtration Rate 28 mL/min (>60); Est Glom Filt Rate - Afr Amer 34 mL/min (>60); Estimated Creatinine Clearance 16.87 ml/min; Glucose 197 mg/dL (74-106); Potassium 4.1 mmol/L (3.5-5.1); Sodium Level 140 mmol/L (136-145)
[2023-06-23] MEDS: Ipratropium/Albuterol Sulfate 3 ML AMPUL.NEB INHALATION ×4 (07:31→22:57)
[2023-06-23] MEDS: Enoxaparin 30 MG/0.3 ML Syringe SC (09:59)
[2023-06-23] MEDS: Carvedilol 12.5 MG Tablet PO ×2 (10:00→21:16)
[2023-06-23] MEDS: Furosemide 40 MG Tablet PO (10:00)
[2023-06-23] MEDS: guaiFENesin 1,200 MG Tablet 1200 MG PO (10:00)
[2023-06-23] MEDS: hydroCHLOROthiazide 25 MG Tablet PO (10:00)
[2023-06-23] MEDS: Clopidogrel Bisulfate 75 MG Tablet PO (10:01)
[2023-06-23] MEDS: Spironolactone 25 MG Tablet PO (10:01)
[2023-06-23] MEDS: Multivitamins,Therapeutic Tablet 1 TABLET PO (10:01)
[2023-06-23] MEDS: levoFLOXacin IV 250 MG/50 ML BAG 50 MG IV (10:02)
[2023-06-23] MEDS: Losartan Potassium 100 MG Tablet PO (10:02)
[2023-06-23] MEDS: Benzonatate 100 MG Capsule 200 MG PO ×2 (15:03→21:16)
--- NOTE | 2023-06-23 17:51 | PN.HOSP_ITS ---
Reason for Visit Reason for Visit: Diagnoses Chronic obstructive pulmonary disease with (acute) exacerbation (06/20/23) Hypoxemia (06/20/23) Objective Data Objective Data Vital Signs: Vital Signs Temp Pulse Resp BP Pulse Ox O2 Del Method O2 Flow Rate 98 F 80 18 140/67 H 96 Nasal Cannula 3 06/23/23 15:01 06/23/23 15:01 06/23/23 15:01 06/23/23 15:01 06/23/23 15:01 06/23/23 15:01 06/23/23 15:01 Oxygen Flow Rate (L/min) [ 2 AMBULATING with Oxygen #1] Oxygen Flow Rate (L/min) 3 Oxygen Delivery Method Nasal Cannula Weight: 156 lb Body Mass Index (BMI) 29.5 Intake & Output: Intake and Output for Last 24 Hours 06/21/23 06/22/23 06/23/23 23:59 23:59 23:59 Intake Total 950 / 950 290 / 590 950 / 950 Balance 950 / 950 290 / 590 950 / 950 Lab / Micro Data 06/23/23 05:45 06/23/23 05:45 Labs: Laboratory Results - last 24 hr 06/23/23 05:45: WBC 9.0, RBC 3.52 L, Hgb 11.4 L, Hct 35.3 L, MCV 100.3 H, MCH 32.4 H, MCHC 32.3, RDW Std Deviation 47.7 H, RDW Coeff of Ha 13.0, Plt Count 185, MPV 10.6, Immature Gran % (Auto) 1.800 H, Neut % (Auto) 86.0 H, Lymph % (Auto) 7.9 L, [place] % (Auto) 4.0, Eos % (Auto) 0.0, Baso % (Auto) 0.3, Absolute Neuts (auto) 7.8 H, Absolute Lymphs (auto) 0.71 L, Nucleated RBC % 0, Sodium 140, Potassium 4.1, Chloride 107, Carbon Dioxide 27.0, Anion Gap 6, BUN 72 H, Creatinine 1.84 H, Estim Creat Clear Calc 16.87, Est GFR (MDRD) Af Amer 34 L, Est GFR (MDRD) Non-Af 28 L, BUN/Creatinine Ratio 39.1 H, Glucose 197 H, Calcium 8.6 Micro: Microbiology 06/21/23 03:47 Sputum, Expectorated/Coughed Gram Stain - Final 06/21/23 03:47 Sputum, Expectorated/Coughed Respiratory Culture - Final Yeast, not Sera albicans 06/19/23 13:10 Mucosa - Nasopharyngeal Respiratory Panel (PCR) - Final 06/19/23 12:07 Nasal Secretion SARS-CoV-2 & FLU Antigen (Rapid) - Final Physical Exam Narrative Seen and examined. Patient is still short of breath and wheezy. She is short of breath even at rest. No improvement. On 3 L of oxygen. Physical exam General: Alert, Oriented x3, Cooperative HEENT: Atraumatic, PERRLA, EOMI, Normocephalic Oral: No Gingival or Mucosal Lesions/ Ulcerations Neck: Supple, No JVD, Negative Carotid Bruits Lungs: Dyspnea at rest. Air entry diminished in bilateral lung bases. Bilateral expiratory rhonchi and wheezing present Cardiovascular: Regular rate, Regular Rhythm, Normal S1, Normal S2, No murmurs Abdomen: Bowel Sounds Present, Soft, Non Tender, Non-Distended : No renal angle tenderness. No suprapubic tenderness. Extremities: No edema, Capillary Refill Less than 3 Seconds Skin: No rashes, No breakdown Musculoskeletal: No Tenderness to Palpation of Joints or Extremities Neurological: Cranial nerves II-XII grossly intact, DTR 2+/4. No acute focal neurological deficit. Psych/Mental Status: Flat affect. Assessment & Plan Assessment/Plan (1) Hypoxia: (2) Acute exacerbation of chronic obstructive pulmonary disease: PLAN: Plan #Hypoxia due to acute exacerbation of probable COPD * on 2L of oxygen by nasal canula * on IV solumedrol, IV levaquin and breathing treatment with bronchodilators * titrate oxygen to maintain sats >90% * troponins not elevated * respiratory panel negative. Covid and flu antigen tests also negative * sputum culture pending but sputum gram statin showed 3+ gram positive cocci, 2+ gram positive rods and 2+ wbc. culture pending 06/23: Increase Solu-Medrol to 60 mg IV every 6 hourly. Continue aggressive bronchopulmonary hygiene with bronchodilator. Final sputum culture shows yeast. #Bilateral conjuctivitis * has erythema of both conjuctiva, with some moderate purulent discharge * concerned that this may be viral, as it is bilateral. However, in light of the moderate discharge, on ciprofloxacin eye drops. 06/23: Cipro eyedrop decrease frequency to every 4 hour. Conjunctiva looks bett er. #Hyperlipidemia: On statin #Hypertension: On carvedilol On losartan and hydrochlorothiazide #Restless leg syndrome: Pramipexole #Moderate pulmonary hypertension: * 2D echo from 06/22/2022 showed right ventricular systolic pressure 47 mmHg. She also has stage II diastolic dysfunction. * Elevated RVSP is likely due to underlying lung disease. * DVT prophylaxis: Lovenox CODE STATUS: full code
[2023-06-23] MEDS: Pramipexole Di-HCl 0.5 MG Tablet 1.5 MG PO (21:15)
[2023-06-23] MEDS: Atorvastatin Calcium 40 MG Tablet PO (21:16)
[2023-06-23] MEDS: guaiFENesin/D-Methorphan TAB.SR.12H 2 TABLET PO (21:16)
[2023-06-23] MEDS: MELATONIN 3 MG TABLET PO (21:29)
[2023-06-24] VITALS (13 sets, daily range): BP systolic 116–149; BP diastolic 36–61; PULSE 54–99; RESP 16–20; TEMP 36.2–36.7; O2SAT 92–96
[2023-06-24] MEDS: Ciprofloxacin 0.3% 2.5ml Bottle 1 DRP EACH EYE ×7 (01:18→23:04)
[2023-06-24] MEDS: Acetaminophen 325 MG Tablet 650 MG PO (02:29)
[2023-06-24] MEDS: Ipratropium/Albuterol Sulfate 3 ML AMPUL.NEB INHALATION ×6 (03:13→23:36)
[2023-06-24] MEDS: Benzonatate 100 MG Capsule 200 MG PO ×3 (05:35→23:01)
[2023-06-24 07:17] LABS: Absolute Lymphocyte Count 0.59 X10^3/uL (0.83-4.51); Absolute Neutrophil Count 7.3 X10^3/uL (2.0-7.7); Basophil# 0.03 X10^3/uL; Basophil% 0.4 % (0-1); Hematocrit 34.6 % (37-47); Hemoglobin 11.2 g/dL (12.0-15.0); Lymphocyte # 0.59 X10^3/ul (0.83-4.51); Lymphocyte % 7.1 % (19-41); Mean Corp Hgb Conc 32.4 g/dL (32-36); Mean Corpuscular Hgb 32.4 pg (27.0-32.0); Mean Platelet Vol. 9.9 fl (6.2-12.0); Monocyte# 0.21 X10^3/uL; Monocyte% 2.5 % (0-10); NRBC Flagged by Analyzer 0 % (0-5); Neutrophil # 7.26 X10^3/uL (2.7-7.7); Neutrophil % 87.7 % (47-70); POSITIVE DIFFERENTIAL YES; Platelet Count 162 K/mm3 (150-450); RBC Distribution Width CV 12.9 % (11.6-14.6); Red Blood Count 3.46 M/mm3 (4.2-5.4); White Blood Count 8.3 K/mm3 (4.4-11.0)
[2023-06-24 07:18] LABS: Differential Indicated SCAN CRITERIA MET
[2023-06-24 07:40] LABS: Anion Gap 3 (5-15); BUN 72 mg/dL (7-18); BUN/Creat Ratio 42.4 RATIO (10-20); Calcium,Total 8.3 mg/dL (8.5-10.1); Chloride 106 mmol/L (98-107); EST Glomerular Filtration Rate 30 mL/min (>60); Est Glom Filt Rate - Afr Amer 37 mL/min (>60); Estimated Creatinine Clearance 18.26 ml/min; Glucose 206 mg/dL (74-106); Potassium 3.9 mmol/L (3.5-5.1); Sodium Level 138 mmol/L (136-145)
[2023-06-24] MEDS: Multivitamins,Therapeutic Tablet 1 TABLET PO (07:51)
[2023-06-24 08:09] LABS: Differential Comment SCANNED
[2023-06-24] MEDS: Carvedilol 12.5 MG Tablet PO ×2 (09:48→23:00)
[2023-06-24] MEDS: Losartan Potassium 100 MG Tablet PO (09:49)
[2023-06-24] MEDS: hydroCHLOROthiazide 25 MG Tablet PO (09:49)
[2023-06-24] MEDS: Enoxaparin 30 MG/0.3 ML Syringe SC (09:49)
[2023-06-24] MEDS: Furosemide 40 MG Tablet PO (09:49)
[2023-06-24] MEDS: Clopidogrel Bisulfate 75 MG Tablet PO (09:50)
[2023-06-24] MEDS: Spironolactone 25 MG Tablet PO (09:50)
[2023-06-24] MEDS: guaiFENesin/D-Methorphan TAB.SR.12H 2 TABLET PO ×2 (09:50→23:00)
[2023-06-24] MEDS: 0.9% Saline Lock 10 ML Syringe IV ×2 (11:03→17:01)
--- NOTE | 2023-06-24 13:30 | NURSING ---
Pt spo2 @1315 94% on 3 L NC. Decreased to 2 L and SPO@ was 91%. after 15 min while at rest. Will continue to monitor
--- NOTE | 2023-06-24 14:20 | NURSING ---
re-check pt on 2l o2 NC. 89-90%. Returned to 3 L nc
--- NOTE | 2023-06-24 15:32 | PN.HOSP_ITS ---
Reason for Visit Reason for Visit: Diagnoses Chronic obstructive pulmonary disease with (acute) exacerbation (06/20/23) Hypoxemia (06/20/23) Objective Data Objective Data Vital Signs: Vital Signs Temp Pulse Resp BP Pulse Ox O2 Del Method O2 Flow Rate 97.1 F L 54 L 20 H 116/36 L 94 Nasal Cannula 3 06/24/23 13:18 06/24/23 13:18 06/24/23 13:18 06/24/23 13:18 06/24/23 13:18 06/24/23 14:00 06/24/23 14:00 Oxygen Flow Rate (L/min) [ 2 AMBULATING with Oxygen #1] Oxygen Flow Rate (L/min) 3 Oxygen Delivery Method Nasal Cannula Weight: 156 lb Body Mass Index (BMI) 29.5 Intake & Output: Intake and Output for Last 24 Hours 06/22/23 06/23/23 06/24/23 23:59 23:59 23:59 Intake Total 290 / 590 1400 / 1640 540 / 540 Balance 290 / 590 1400 / 1640 540 / 540 Lab / Micro Data 06/24/23 06:55 06/24/23 06:55 Labs: Laboratory Results - last 24 hr 06/24/23 06:55: WBC 8.3, RBC 3.46 L, Hgb 11.2 L, Hct 34.6 L, MCV 100.0 H, MCH 32.4 H, MCHC 32.4, RDW Std Deviation 47.0 H, RDW Coeff of Ha 12.9, Plt Count 162, MPV 9.9, Immature Gran % (Auto) 2.300 H, Neut % (Auto) 87.7 H, Lymph % (Auto) 7.1 L, [place] % (Auto) 2.5, Eos % (Auto) 0.0, Baso % (Auto) 0.4, Absolute Neuts (auto) 7.3, Absolute Lymphs (auto) 0.59 L, Nucleated RBC % 0, Differential Comment SCANNED, Sodium 138, Potassium 3.9, Chloride 106, Carbon Dioxide 29.0, Anion Gap 3 L, BUN 72 H, Creatinine 1.70 H, Estim Creat Clear Calc 18.26, Est GFR (MDRD) Af Amer 37 L, Est GFR (MDRD) Non-Af 30 L, BUN/Creatinine Ratio 42.4 H, Glucose 206 H, Calcium 8.3 L Micro: Microbiology 06/21/23 03:47 Sputum, Expectorated/Coughed Gram Stain - Final 06/21/23 03:47 Sputum, Expectorated/Coughed Respiratory Culture - Final Yeast, not Sera albicans 06/19/23 13:10 Mucosa - Nasopharyngeal Respiratory Panel (PCR) - Final 06/19/23 12:07 Nasal Secretion SARS-CoV-2 & FLU Antigen (Rapid) - Final Physical Exam Narrative Seen and examined. The patient walked around the nursing station and she required about 3.5 L of oxygen with mild shortness of breath but she did not feel dizzy or lightheaded. She requested that 1 more day will be better for her as she does not want to come back for readmission. Physical exam General: Alert, Oriented x3, Cooperative HEENT: Atraumatic, PERRLA, EOMI, Normocephalic Oral: No Gingival or Mucosal Lesions/ Ulcerations Neck: Supple, No JVD, Negative Carotid Bruits Lungs: Dyspnea at rest. Air entry diminished in bilateral lung bases. Lungs mostly clear. Cardiovascular: Regular rate, Regular Rhythm, Normal S1, Normal S2, No murmurs Abdomen: Bowel Sounds Present, Soft, Non Tender, Non-Distended : No renal angle tenderness. No suprapubic tenderness. Extremities: No edema, Capillary Refill Less than 3 Seconds Skin: No rashes, No breakdown Musculoskeletal: No Tenderness to Palpation of Joints or Extremities Neurological: Cranial nerves II-XII grossly intact, DTR 2+/4. No acute focal neurological deficit. Psych/Mental Status: Flat affect. Assessment & Plan Assessment/Plan (1) Hypoxia: (2) Acute exacerbation of chronic obstructive pulmonary disease: PLAN: Plan #Hypoxia due to acute exacerbation of probable COPD * on 2L of oxygen by nasal canula * on IV solumedrol, IV levaquin and breathing treatment with bronchodilators * titrate oxygen to maintain sats >90% * troponins not elevated * respiratory panel negative. Covid and flu antigen tests also negative * sputum culture pending but sputum gram statin showed 3+ gram positive cocci, 2+ gram positive rods and 2+ wbc. culture pending 06/23: Increase Solu-Medrol to 60 mg IV every 6 hourly. Continue aggressive bronchopulmonary hygiene with bronchodilator. Final sputum culture shows yeast. 06/24:Will continue increased dose of Solu-Medrol as she got benefited. Will likely discharge tomorrow. Continue bronchodilator. #Bilateral conjuctivitis * has erythema of both conjuctiva, with some moderate purulent discharge * concerned that this may be viral, as it is bilateral. However, in light of the moderate discharge, on ciprofloxacin eye drops. 06/23: Cipro eyedrop decrease frequency to every 4 hour. Conjunctiva looks better. #Hyperlipidemia: On statin #Hypertension: On carvedilol On losartan and hydrochlorothiazide #Restless leg syndrome: Pramipexole #Moderate pulmonary hypertension: * 2D echo from 06/22/2022 showed right ventricular systolic pressure 47 mmHg. She also has stage II diastolic dysfunction. * Elevated RVSP is likely due to underlying lung disease. * DVT prophylaxis: Lovenox CODE STATUS: full code Charges/Coding Visit Charges Inpatient E&M: 17116 Subs Hosp L2
[2023-06-24] MEDS: Atorvastatin Calcium 40 MG Tablet PO (23:00)
[2023-06-24] MEDS: Pramipexole Di-HCl 0.5 MG Tablet 1.5 MG PO (23:02)
[2023-06-24] MEDS: MELATONIN 3 MG TABLET PO (23:18)
[2023-06-25 03:52] VITALS: BP 132/50; PULSE 64; RESP 18; TEMP 36.4; O2SAT 94
[2023-06-25] MEDS: Ciprofloxacin 0.3% 2.5ml Bottle 1 DRP EACH EYE ×3 (03:54→11:12)
[2023-06-25] MEDS: Benzonatate 100 MG Capsule 200 MG PO (05:53)
[2023-06-25] MEDS: 0.9% Saline Lock 10 ML Syringe IV (05:54)
[2023-06-25] MEDS: Albuterol 2.5 MG/3 ML VIAL.NEB. INHALATION (06:51)
[2023-06-25 06:52] VITALS: PULSE 75; RESP 18; O2SAT 93
[2023-06-25] MEDS: Acetaminophen 325 MG Tablet 650 MG PO (07:46)
[2023-06-25 09:06] VITALS: BP 129/45; PULSE 76; RESP 18; TEMP 36.4; O2SAT 92
[2023-06-25] MEDS: Losartan Potassium 100 MG Tablet PO (09:10)
[2023-06-25] MEDS: Enoxaparin 30 MG/0.3 ML Syringe SC (09:10)
[2023-06-25] MEDS: Furosemide 40 MG Tablet PO (09:10)
[2023-06-25] MEDS: Carvedilol 12.5 MG Tablet PO (09:10)
[2023-06-25] MEDS: Spironolactone 25 MG Tablet PO (09:10)
[2023-06-25] MEDS: guaiFENesin/D-Methorphan TAB.SR.12H 2 TABLET PO (09:10)
[2023-06-25] MEDS: hydroCHLOROthiazide 25 MG Tablet PO (09:10)
[2023-06-25] MEDS: Clopidogrel Bisulfate 75 MG Tablet PO (09:10)
[2023-06-25] MEDS: Multivitamins,Therapeutic Tablet 1 TABLET PO (09:10)
--- NOTE | 2023-06-25 09:41 | DCINST_ITS ---
Discharge Instructions Diet Discharge Diet: Low fat / Low cholesterol, 1800 Calorie Control Diet and 2000 mg Sodium Diet Activity Discharge Activity: Return to Normal Activity Weight Bearing Status: Weight bearing as tolerated Dressing / Incision Call your doctor if you observe: Fever of 101 or Higher, Coldness, Increased Pain, Numbness or Tingling, Change in Color, Inability to urinate, Inability to have a bowel movement, Shortness of breath, Dizziness, Fainting spells, Swelling in the ankles, Chest pain, Prolonged hiccupping, Increased palpitations (irregular heartbeat) and Calf discomfort Follow Up Care When: IN 2 WEEKS Test Results: Test results from this visit will be discussed in further detail at your follow- up appointment, if applicable. Discharge Plan Admission Admit Date/Time: 06/20/23 16:26 Attending Provider: Juan Esteves Primary Care Provider: Anu Mortensen Consulting Providers: Anya Campa Discharge Orders/Prescriptions Prescriptions: New benzonatate 100 mg Capsule 200 mg PO TID PRN (Reason: Acne) Qty: 30 0RF Mucinex DM 30-600 mg Tablet Extended Release 12 Hr 2 tab PO BID 5 Days Qty: 20 0RF prednisone 10 mg tablet 10 mg PO DAILY Qty: 30 0RF Rx Instructions: 40 mg for 3 days 30 mg for 3 days, 20 mg for 3 days,and 10 mg for 3 days Continued cholecalciferol (vitamin D3) 1,000 unit tablet 2,500 unit PO DAILY albuterol sulfate 2.5 mg /3 mL (0.083 %) solution for nebulization 2.5 mg inhalation Q4H PRN (Reason: shortness of breath or wheezing) ipratropium-albuterol 0.5 mg-3 mg(2.5 mg base)/3 mL solution for nebulization 3 ml inhalation Q6H PRN (Reason: shortness of breath) budesonide 0.5 mg/2 mL suspension for nebulization 0.25 mg inhalation TID PRN (Reason: sob) atorvastatin 40 MG tablet 40 mg PO QHS Patient Comments: reduces cholesterol clopidogrel 75 MG tablet 75 mg PO DAILY Patient Comments: blood thinner spironolactone 25 MG tablet 25 mg PO DAILY Patient Comments: water pill/diuretic pramipexole 0.5 MG tablet 1.5 mg PO QHS Patient Comments: restless leg syndrome multivitamin with folic acid 1 TABLET tablet 1 tab PO DAILY Patient Comments: supplement albuterol sulfate 90 mcg/actuation HFA aerosol inhaler 2 puff INHALATION BID PRN (Reason: Sob &/Or Wheezing) Patient Comments: BREATHING losartan-hydrochlorothiazide 100-25 mg tablet 1 tab PO DAILY Patient Comments: 100/25MG. BLOOD PRESSURE/HEART carvedilol 12.5 mg tablet 12.5 mg PO BID Qty: 180 4RF Rx Instructions: must administer with a meal/food Held furosemide 40 mg tablet 40 mg PO DAILY Qty: 90 3RF Hold Instructions: Hold for 2 days. Referrals / Follow Up: Walter Sheehan MD [Med Staff - Active Staff] - Within 1 Month Anu Mortensen MD [Primary Care Provider] - Within 1 Week Disposition Disposition (needs filled in before D/C Order can be placed): Home, Self Care
--- NOTE | 2023-06-25 09:51 | DS.PCM_ITS ---
Providers Date of Admission: 06/20/23 Date of Discharge: 06/25/23 Primary Care Physician: Dr. Anu Mortensen MD Reason For Visit: ACUTE COPD EXACERBATION Diagnosis Discharge Diagnosis (1) Hypoxia: Status: Acute Code(s): R09.02 - Hypoxemia (2) Acute exacerbation of chronic obstructive pulmonary disease: Status: Chronic Code(s): J44.1 - Chronic obstructive pulmonary disease with (acute) exacerbation Plan 87-year-old female admitted with shortness of breath for 3 days prior to admission along with cough greenish sputum but no fever. She also hypoxic 85% on room air, 94% on 4 L of oxygen. #Hypoxia due to acute exacerbation of probable COPD * on 2L of oxygen by nasal canula * on IV solumedrol, IV levaquin and breathing treatment with bronchodilators * titrate oxygen to maintain sats >90% * troponins not elevated * respiratory panel negative. Covid and flu antigen tests also negative * sputum culture pending but sputum gram statin showed 3+ gram positive cocci, 2+ gram positive rods and 2+ wbc. culture pending 06/23: Increase Solu-Medrol to 60 mg IV every 6 hourly. Continue aggressive bronchopulmonary hygiene with bronchodilator. Final sputum culture shows yeast. 06/24:Will continue increased dose of Solu-Medrol as she got benefited. Will likely discharge tomorrow. Continue bronchodilator. 06/25: Last night, the patient weaned off oxygen yesterday evening. Currently breathing on room air. Patient is discharged on tapering dose of prednisone, Tessalon Perles and Mucinex DM. Patient has nebulizer at home. Home qualification oxygen ordered #Bilateral conjuctivitis * has erythema of both conjuctiva, with some moderate purulent discharge * concerned that this may be viral, as it is bilateral. However, in light of the moderate discharge, on ciprofloxacin eye drops. 06/23: Cipro eyedrop decrease frequency to every 4 hour. Conjunctiva looks better. 06/25: Patient completed antibiotic treatment. Conjunctivitis is resolved. #Hyperlipidemia: On statin #Hypertension: On carvedilol On losartan and hydrochlorothiazide #Restless leg syndrome: Pramipexole #Moderate pulmonary hypertension: * 2D echo from 06/22/2022 showed right ventricular systolic pressure 47 mmHg. She also has stage II diastolic dysfunction. * Elevated RVSP is likely due to underlying lung disease. * DVT prophylaxis: Lovenox CODE STATUS: full code Discharge medication reconciliation done. Discharge follow-up instructions completed. Discharge process discussed with the patient and all questions were answered to patient's satisfaction. Follow with PCP in 1 to 2 weeks. Advised to follow in pulmonary clinic in 1 month. Total time spent, exact 35 minutes on discharge meds reconciliation, examination, coordination of care with nurses and ancillary staff, review of imaging and blood test and discussion with the patient on follow-up in structions. Medications at Discharge Home Medications atorvastatin 40 mg tablet 40 mg PO QHS 02/22/16 clopidogrel 75 mg tablet 75 mg PO DAILY 02/22/16 multivitamin with folic acid 400 mcg tablet 1 tab PO DAILY 02/22/16 pramipexole 0.5 mg tablet 1.5 mg PO QHS 02/22/16 spironolactone 25 mg tablet 25 mg PO DAILY 02/22/16 albuterol sulfate 90 mcg/actuation aerosol inhaler 2 puff inhalation BID PRN Sob &/Or Wheezing 03/16/18 cholecalciferol (vitamin D3) 25 mcg (1,000 unit) tablet 2,500 unit PO DAILY 10/09/18 furosemide 40 mg tablet 40 mg PO DAILY #90 tabs 01/27/22 albuterol sulfate 2.5 mg/3 mL (0.083 %) solution for nebulization 2.5 mg inhalation Q4H PRN shortness of breath or wheezing 05/28/22 ipratropium 0.5 mg-albuterol 3 mg (2.5 mg base)/3 mL nebulization soln 3 ml inhalation Q6H PRN shortness of breath 05/28/22 budesonide 0.5 mg/2 mL suspension for nebulization 0.25 mg inhalation TID PRN sob 12/06/22 losartan 100 mg-hydrochlorothiazide 25 mg tablet 1 tab PO DAILY 12/06/22 carvedilol 12.5 mg tablet 12.5 mg PO BID #180 tabs 04/27/23 benzonatate 100 mg capsule 200 mg (2 x 100 mg) PO TID PRN Acne #30 caps 06/25/23 dextromethorphan-guaifenesin 30 mg-600 mg tablet extended [id number] hr (Mucinex DM) 2 tab PO BID 5 days #20 tabs 06/25/23 prednisone 10 mg tablet 10 mg PO DAILY #30 tabs 06/25/23 Physical Exam Narrative Seen and examined. The patient walked around the nursing station and she required about 3.5 L of oxygen with mild shortness of breath but she did not feel dizzy or lightheaded. She requested that 1 more day will be better for her as she does not want to come back for readmission. Physical exam General: Alert, Oriented x3, Cooperative HEENT: Atraumatic, PERRLA, EOMI, Normocephalic Oral: No Gingival or Mucosal Lesions/ Ulcerations Neck: Supple, No JVD, Negative Carotid Bruits Lungs: Dyspnea and hypoxia has resolved. Air entry diminished in bilateral lung bases. Lungs mostly clear. Cardiovascular: Regular rate, Regular Rhythm, Normal S1, Normal S2, No murmurs Abdomen: Bowel Sounds Present, Soft, Non Tender, Non-Distended : No renal angle tenderness. No suprapubic tenderness. Extremities: No edema, Capillary Refill Less than 3 Seconds Skin: No rashes, No breakdown Musculoskeletal: No Tenderness to Palpation of Joints or Extremities Neurological: Cranial nerves II-XII grossly intact, DTR 2+/4. No acute focal neurological deficit. Psych/Mental Status: Flat affect. Weight / BMI Weight Weight: 156 lb Body Mass Index (BMI) 29.5 ABG / Lab / Microbiology Data 06/24/23 06:55 06/24/23 06:55 Microbiology: Microbiology 06/21/23 03:47 Sputum, Expectorated/Coughed Gram Stain - Final 06/21/23 03:47 Sputum, Expectorated/Coughed Respiratory Culture - Final Yeast, not Sera albicans 06/19/23 13:10 Mucosa - Nasopharyngeal Respiratory Panel (PCR) - Final 06/19/23 12:07 Nasal Secretion SARS-CoV-2 & FLU Antigen (Rapid) - Final D/C Instructions Discharge Diet: Low fat / Low cholesterol, 1800 Calorie Control Diet and 2000 mg Sodium Diet Weight Bearing Status: Weight bearing as tolerated Call your doctor if you observe: Fever of 101 or Higher, Coldness, Increased Pain, Numbness or Tingling, Change in Color, Inability to urinate, Inability to have a bowel movement, Shortness of breath, Dizziness, Fainting spells, Swelling in the ankles, Chest pain, Prolonged hiccupping, Increased palpitations (irregular heartbeat) and Calf discomfort When: IN 2 WEEKS Meaningful Use Info Meaningful Use Diagnoses (Choose all that apply): None applicable Discharge Plan Admission Admit Date/Time: 06/20/23 16:26 Attending Provider: Juan Esteves Primary Care Provider: Anu Mortensen Consulting Providers: Anya Campa Discharge Orders/Prescriptions Prescriptions: New benzonatate 100 mg Capsule 200 mg PO TID PRN (Reason: Acne) Qty: 30 0RF Mucinex DM 30-600 mg Tablet Extended Release 12 Hr 2 tab PO BID 5 Days Qty: 20 0RF prednisone 10 mg tablet 10 mg PO DAILY Qty: 30 0RF Rx Instructions: 40 mg for 3 days 30 mg for 3 days, 20 mg for 3 days,and 10 mg for 3 days Continued cholecalciferol (vitamin D3) 1,000 unit tablet 2,500 unit PO DAILY albuterol sulfate 2.5 mg /3 mL (0.083 %) solution for nebulization 2.5 mg inhalation Q4H PRN (Reason: shortness of breath or wheezing) ipratropium-albuterol 0.5 mg-3 mg(2.5 mg base)/3 mL solution for nebulization 3 ml inhalation Q6H PRN (Reason: shortness of breath) budesonide 0.5 mg/2 mL suspension for nebulization 0.25 mg inhalation TID PRN (Reason: sob) atorvastatin 40 MG tablet 40 mg PO QHS Patient Comments: reduces cholesterol clopidogrel 75 MG tablet 75 mg PO DAILY Patient Comments: blood thinner spironolactone 25 MG tablet 25 mg PO DAILY Patient Comments: water pill/diuretic pramipexole 0.5 MG tablet 1.5 mg PO QHS Patient Comments: restless leg syndrome multivitamin with folic acid 1 TABLET tablet 1 tab PO DAILY Patient Comments: supplement albuterol sulfate 90 mcg/actuation HFA aerosol inhaler 2 puff INHALATION BID PRN (Reason: Sob &/Or Wheezing) Patient Comments: BREATHING losartan-hydrochlorothiazide 100-25 mg tablet 1 tab PO DAILY Patient Comments: 100/25MG. BLOOD PRESSURE/HEART carvedilol 12.5 mg tablet 12.5 mg PO BID Qty: 180 4RF Rx Instructions: must administer with a meal/food Held furosemide 40 mg tablet 40 mg PO DAILY Qty: 90 3RF Hold Instructions: Hold for 2 days. Referrals / Follow Up: Walter Sheehan MD [Med Staff - Active Staff] - Within 1 Month Anu Mortensen MD [Primary Care Provider] - Within 1 Week Disposition Disposition (needs filled in before D/C Order can be placed): Home, Self Care Charges/Coding Visit Charges Inpatient E&M: 33957 Disch Hosp >30min
[2023-06-25 10:13] LABS: Absolute Lymphocyte Count 0.44 X10^3/uL (0.83-4.51); Absolute Neutrophil Count 12.3 X10^3/uL (2.0-7.7); Basophil# 0.04 X10^3/uL; Basophil% 0.3 % (0-1); Hematocrit 37.3 % (37-47); Hemoglobin 12.1 g/dL (12.0-15.0); Lymphocyte # 0.44 X10^3/ul (0.83-4.51); Lymphocyte % 3.3 % (19-41); Mean Corp Hgb Conc 32.4 g/dL (32-36); Mean Corpuscular Hgb 31.9 pg (27.0-32.0); Mean Corpuscular Volume 98.4 fL (81-99); Mean Platelet Vol. 10.2 fl (6.2-12.0); Monocyte# 0.27 X10^3/uL; NRBC Flagged by Analyzer 0 % (0-5); Neutrophil # 12.29 X10^3/uL (2.7-7.7); Neutrophil % 92.4 % (47-70); POSITIVE DIFFERENTIAL YES; Platelet Count 199 K/mm3 (150-450); RBC Distribution Width CV 12.8 % (11.6-14.6); RBC Distribution Width SD 45.9 fl (35.1-43.9); Red Blood Count 3.79 M/mm3 (4.2-5.4); White Blood Count 13.3 K/mm3 (4.4-11.0)
[2023-06-25 10:23] LABS: Differential Indicated SCAN CRITERIA MET
[2023-06-25 10:32] LABS: Anion Gap 9 (5-15); BUN 79 mg/dL (7-18); BUN/Creat Ratio 39.7 RATIO (10-20); Calcium,Total 8.5 mg/dL (8.5-10.1); Chloride 102 mmol/L (98-107); Creatinine, Serum 1.99 mg/dL (0.55-1.02); EST Glomerular Filtration Rate 25 mL/min (>60); Est Glom Filt Rate - Afr Amer 31 mL/min (>60); Glucose 327 mg/dL (74-106); Potassium 3.5 mmol/L (3.5-5.1); Sodium Level 138 mmol/L (136-145)
[2023-06-25] MEDS: Ipratropium/Albuterol Sulfate 3 ML AMPUL.NEB INHALATION (10:41)
[2023-06-25 10:42] VITALS: PULSE 75; RESP 18
[2023-06-25 11:03] LABS: Platelet Estimate ADEQUATE (ADEQ); Red Cell Morphology NORM C+C NORMAL (NORM C&C)
[2023-06-25 11:55] VITALS: O2SAT 90; O2SAT 94
== END 2023-06-25 13:21 | disposition home or self-care (01) | DRG 192 ==
LOC: ED 12:59 → MS3 13:24 → PCU 18:37
PROVIDERS: Nurse Practitioner; Admitting Provider Student in an Organized Health Care Education/Training Program; Emergency Provider Emergency Medicine; PCP Internal Medicine; Visit Provider Internal Medicine
DX: J44.1 Chronic obstructive pulmonary disease with (acute) exacerbation (principal); I27.20 Pulmonary hypertension, unspecified; G25.81 Restless legs syndrome; I10 Essential (primary) hypertension; E78.5 Hyperlipidemia, unspecified; I25.10 Atherosclerotic heart disease of native coronary artery without angina pectoris; H10.9 Unspecified conjunctivitis; B30.9 Viral conjunctivitis, unspecified; R09.02 Hypoxemia; Z79.02 Long term (current) use of antithrombotics/antiplatelets; Z79.82 Long term (current) use of aspirin; Z11.52 Encounter for screening for COVID-19; Z87.891 Personal history of nicotine dependence
CPT/HCPCS: 36415; 71045; 80048; 83880; 84484; 85025; 87070; 87205; 87428; 87633; 93005; 94640; 97110; 97116; 97162; 97166; 97535; 99285; A4216

== ENCOUNTER 2023-07-27 16:28 | Emergency (ER) | payer MEDICARE, SELFPAY ==
[2023-07-27] VITALS (7 sets, daily range): BP systolic 91–144; BP diastolic 47–73; PULSE 57–78; RESP 14–20; TEMP 36.8; O2SAT 95–98
--- NOTE | 2023-07-27 18:25 | EX.ED.DYSGE1 ---
HPI History of Present Illness Chief Complaint: Hypotension [facility] Medical History Bilateral carotid artery stenosis Claudication Diverticulosis Dyslipidemia Essential hypertension Limb weakness Neck and back pain PAD (peripheral artery disease) Renal cyst RLS (restless legs syndrome) Shoulder pain TIA (transient ischemic attack) Home Medications atorvastatin 40 mg tablet 40 mg PO QHS 02/22/16 [History Last Taken 06/18/23] clopidogrel 75 mg tablet 75 mg PO DAILY 02/22/16 [History Last Taken 06/19/23] multivitamin with folic acid 400 mcg tablet 1 tab PO DAILY 02/22/16 [History Last Taken 06/19/23] pramipexole 0.5 mg tablet 1.5 mg PO QHS 02/22/16 [History Last Taken 06/18/23] spironolactone 25 mg tablet 25 mg PO DAILY 02/22/16 [History Last Taken 06/19/23] albuterol sulfate 90 mcg/actuation aerosol inhaler 2 puff inhalation BID PRN Sob &/Or Wheezing 03/16/18 [History Last Taken 06/19/23] cholecalciferol (vitamin D3) 25 mcg (1,000 unit) tablet 2,500 unit PO DAILY 10/09/18 [History Last Taken 06/19/23] furosemide 40 mg tablet 40 mg PO DAILY #90 tabs 01/27/22 [Rx Last Taken 06/19/23] albuterol sulfate 2.5 mg/3 mL (0.083 %) solution for nebulization 2.5 mg inhalation Q4H PRN shortness of breath or wheezing 05/28/22 [History Last Taken 06/19/23] ipratropium 0.5 mg-albuterol 3 mg (2.5 mg base)/3 mL nebulization soln 3 ml inhalation Q6H PRN shortness of breath 05/28/22 [History Last Taken 06/19/23] budesonide 0.5 mg/2 mL suspension for nebulization 0.25 mg inhalation TID PRN sob 12/06/22 [History Last Taken 06/19/23] losartan 100 mg-hydrochlorothiazide 25 mg tablet 1 tab PO DAILY 12/06/22 [History Last Taken 06/19/23] carvedilol 12.5 mg tablet 12.5 mg PO BID #180 tabs 10/11/23 [Rx Last Taken 06/19/23] benzonatate 100 mg capsule 200 mg (2 x 100 mg) PO TID PRN Acne #30 caps 06/25/23 [Rx Last Taken Unknown] dextromethorphan-guaifenesin 30 mg-600 mg tablet extended [id number] hr (Mucinex DM) 2 tab PO BID 5 days #20 tabs 06/25/23 [Rx Last Taken Unknown] prednisone 10 mg tablet 10 mg PO DAILY #30 tabs 06/25/23 [Rx Last Taken Unknown] prednisone 50 mg tablet 50 mg PO DAILY 5 days #5 tabs 07/27/23 [Rx Last Taken Unknown] Allergy/AdvReac Type Severity Reaction Status Date / Time lisinopril Allergy edema Verified 07/27/23 16:29 aspirin AdvReac Upset Verified 07/27/23 16:29 Stomach Family History Mother Heart disease Surgical History History of basal cell carcinoma excision History of carotid angioplasty History of kidney stones History of thyroid surgery History of total hysterectomy Social History (Updated 06/19/23 @ 14:23 by Swapna Bates) household members: none Smoking Status: Former smoker how long ago did patient quit smokin years ago alcohol intake: current alcohol intake frequency: holidays/special occasions only details: rare substance use type: does not use caffeine: Yes Type: coffee Number of servings: 1 EXAM Physical Exam Const Vital Signs: 07/27/23 16:32 07/27/23 19:06 07/27/23 19:07 Temperature 98.2 F Temperature Source Temporal Pulse Rate 68 Respiratory Rate 14 Respiratory Effort Normal Non-Labored Respiratory Depth Respiratory Pattern Normal Blood Pressure 91/73 Blood Pressure Mean 79 Pulse Ox 97 Oxygen Delivery Method Room Air Room Air 07/27/23 19:08 07/27/23 18:45 07/27/23 19:00 Temperature Temperature Source Pulse Rate 65 57 L Respiratory Rate 19 H 20 H Respiratory Effort Normal Non-Labored Respiratory Depth Normal Respiratory Pattern Normal Blood Pressure 136/55 H 118/47 L Blood Pressure Mean 82 70 Pulse Ox 95 96 Oxygen Delivery Method Room Air 07/27/23 19:18 01/10/24 21:26 Temperature Temperature Source Pulse Rate 63 70 Respiratory Rate 17 20 H Respiratory Effort Respiratory Depth Respiratory Pattern Blood Pressure 123/48 H Blood Pressure Mean 73 Pulse Ox 98 Oxygen Delivery Method Room Air [facility] [place] Narr[place] Medical decision making narrative: HISTORY OF PRESENT ILLNESS: 87-year-old female presents with concern for feeling out of it . States she was sent in by Dr. Bales for low blood pressure. She says she is more short of breath than normal as well. She notes a history of COPD. She further states been more short of breath today. Denies bleeding diathesis. The patient denies recent surgery in the last 4 weeks or immobilization in the last 3 days, denies previous diagnosis of DVT or PE, hemoptysis, unilateral leg swelling or malignancy with treatment the last 6 months or palliative. No estrogen use noted. Denies chest pain. Notes lower extremity edema. Notes dyspnea on exertion. The patient denies abdominal pain to me. No recent falls, no new back pain. REVIEW OF SYSTEMS: Pertinent positives: Shortness of breath, lower extremity edema Pertinent negatives: Chest pain, abdominal pain PHYSICAL EXAM: Nursing triage notes reviewed, Vital signs reviewed Constitutional: please see mdm HENT: MMM Eyes: Pupils equal round and reactive to light, Extraocular muscles intact Neck: No stridor, no JVD, full neck ROM Lungs: Clear to auscultation, No wheezing or rales. No increased work of breathing, no conversational dyspnea, no accessory muscle use, no nasal flaring. No respiratory distress noted Heart: Regular rate and rhythm, No murmurs, No rubs and No gallops, 2+ distal pulses (radial, femoral, posterior tibial) in all extremities Abdomen: Soft, there is no tenderness, rigidity, rebound or guarding, no obvious peritoneal signs, no palpable pulsatile abdominal masses, no auscultated abdominal bruit : No CVAT Extremities: No edema Neuro: No focal neurological deficits, cranial nerves II through XII intact, 5/5 strength in all extremities. Intact sensation to light touch in all extremities, 2+ reflexes bilateral patella tendons. Normal gait. No ataxia. Skin: No rash or lesions noted MEDICAL DECISION MAKING: Chief Complaint: Hypotension, shortness of breath External records reviewed: Last ED visit in June 19, 2023 for acute exacerbation of COPD. Admitted at that time given hypoxia. Last echocardiogram 2021 shows ejection fraction of 65% Factors affecting care: COPD, hypertension, hyperlipidemia, peripheral artery disease Social determinants of health: none History obtained from others: Patient's family Consults: none [facility] Narrative: She was initially afebrile, nontoxic-appearing, had soft blood pressures which resolved spontaneously I considered the following differential diagnosis: COPD exacerbation, CHF, PE, pneumonia, COVID, flu, RSV, arrhythmia, ACS ALL IMAGES (IF OBTAINED) HAVE BEEN PERSONALLY REVIEWED AND INTERPRETED BY MYSELF. EKG with normal sinus rhythm, left axis deviation, right bundle branch block, no STEMI similar to prior EKG on June 21, 2023 CBC without leukocytosis, noted mild anemia at baseline, High-sensitivity troponin is negative, no evidence of myocardial ischemia Lactate is wnl indicating no end-organ hypoperfusion and/or hypoxia. BNP within normal limits suggestive of no increased ventricular stretch, transmural wall pressure or heart failure. RSV, flu, COVID negative Dispo The synthesis of the patient's history, physical exam, labs images suggest a likely COPD exacerbation. Patient was given empiric COPD therapy with DuoNebs. She was ambulated without significant hypoxia. There is no indication for admission at this time. There is no signs of hypotension in the emergency department. Low suspicion for PE given low risk Wells score and lack of significant elevations in BNP, troponin lack signs of right heart strain on the patient's EKG. patient was given a prescription for prednisone. Return precautions were discussed. The patient and/or family, caregivers express understanding. The patient and/or family, caregivers agrees with the plan. Shared decision making: I will have a discussion with the patient and or visitors regarding risk/benefits of further testing or admission. They will be made aware of of the risk/benefits inherent in this decision they will be given the opportunity to voice understanding. Total critical care time today provided was at least 0 minutes. This excludes separately billable procedures. Critical care time (if documented) is secondary to the patient having high probability of clinically significant/life threatening deterioration in the patient's condition which required my urgent intervention. Impression: 1. COPD exacerbation 2. Anemia Dispo: Discharge home Lab Data Labs: Laboratory Results - last 24 hr 07/27/23 18:40 WBC 9.4 RBC 3.65 L Hgb 11.9 L Hct 36.3 L MCV 99.5 H MCH 32.6 H MCHC 32.8 RDW Std Deviation 51.5 H RDW Coeff of Ha 14.2 Plt Count 154 MPV 11.0 Immature Gran % (Auto) 1.500 H Neut % (Auto) 72.1 H Lymph % (Auto) 15.5 L Starr % (Auto) 10.1 H Eos % (Auto) 0.4 Baso % (Auto) 0.4 Absolute Neuts (auto) 6.8 Absolute Lymphs (auto) 1.46 Nucleated RBC % 0 Sodium 144 Potassium 4.0 Chloride 108 H Carbon Dioxide 29.0 Anion Gap 7 BUN 93 H Creatinine 2.07 H Est GFR (MDRD) Af Amer 29 L Est GFR (MDRD) Non-Af 24 L BUN/Creatinine Ratio 44.9 H Glucose 109 H Lactic Acid 0.8 Calcium 8.9 Troponin I High Sens 17 B-Natriuretic Peptide 67.3 Radiography Chest X-Ray - ED: Read by ED Physician Diagnostic Testing: Clinical Impression(s) from Imaging Studies Chest X-Ray 07/27/23 20:50 IMPRESSION: Stable chest without significant acute focal airspace disease. Again noted thin linear bibasilar atelectasis versus scarring. Electronically Signed: Stuart Garcia MD at 22:27 EST , Discharge Plan Triage Chief Complaint: Hypotension Other Complaint: Abd Pain Shortness of Breath ED Provider: Jay De Luna Dx/Rx/DC Orders Clinical Impression: COPD with exacerbation Instructions: Discharge Instructions: COPD Prescriptions: New prednisone 50 mg tablet 50 mg PO DAILY 5 Days Qty: 5 0RF No Action cholecalciferol (vitamin D3) 1,000 unit tablet 2,500 unit PO DAILY albuterol sulfate 2.5 mg /3 mL (0.083 %) solution for nebulization 2.5 mg inhalation Q4H PRN (Reason: shortness of breath or wheezing) ipratropium-albuterol 0.5 mg-3 mg(2.5 mg base)/3 mL solution for nebulization 3 ml inhalation Q6H PRN (Reason: shortness of breath) budesonide 0.5 mg/2 mL suspension for nebulization 0.25 mg inhalation TID PRN (Reason: sob) atorvastatin 40 MG tablet 40 mg PO QHS Patient Comments: reduces cholesterol clopidogrel 75 MG tablet 75 mg PO DAILY Patient Comments: blood thinner spironolactone 25 MG tablet 25 mg PO DAILY Patient Comments: water pill/diuretic pramipexole 0.5 MG tablet 1.5 mg PO QHS Patient Comments: restless leg syndrome multivitamin with folic acid 1 TABLET tablet 1 tab PO DAILY Patient Comments: supplement albuterol sulfate 90 mcg/actuation HFA aerosol inhaler 2 puff INHALATION BID PRN (Reason: Sob &/Or Wheezing) Patient Comments: BREATHING losartan-hydrochlorothiazide 100-25 mg tablet 1 tab PO DAILY Patient Comments: 100/25MG. BLOOD PRESSURE/HEART benzonatate 100 mg Capsule 200 mg PO TID PRN (Reason: Acne) Qty: 30 0RF Mucinex DM 30-600 mg Tablet Extended Release 12 Hr 2 tab PO BID 5 Days Qty: 20 0RF prednisone 10 mg tablet 10 mg PO DAILY Qty: 30 0RF Rx Instructions: 40 mg for 3 days 30 mg for 3 days, 20 mg for 3 days,and 10 mg for 3 days furosemide 40 mg tablet 40 mg PO DAILY Qty: 90 3RF Hold Instructions: Hold for 2 days. carvedilol 12.5 mg tablet 12.5 mg PO BID Qty: 180 4RF Rx Instructions: must administer with a meal/food Primary Care Provider: Anu Mortensen Referrals: Anu Mortensen MD [Primary Care Provider] - Activity Restrictions/Additional Instructions: Thank you for trusting us with your care today! Please take Tylenol (2 pills, 650 mg), ibuprofen (2 pills, 400 mg) every 6 hours as needed for pain and fever control. Please take prednisone as prescribed. Please return to the emergency department if your symptoms change or worsen. Please follow with your primary care physician for further outpatient evaluation and management. Disposition Disposition: Home, Self Care
--- NOTE | 2023-07-27 18:27 | EKG12_ITS ---
Test Reason : Blood Pressure : / mmHG Vent. Rate : 066 BPM Atrial Rate : 066 BPM P-R Int : 166 ms QRS Dur : 124 ms QT Int : 406 ms P-R-T Axes : 061 093 044 degrees QTc Int : 425 ms Normal sinus rhythm with sinus arrhythmia Right bundle branch block Abnormal ECG Confirmed by SILVIA GOETZ, TOO ([id number]), video news editor RAMIN HUNG ([id number] on 07/29/2023 7:09:58 AM Referred By: Confirmed By:TOO VEGA MD
--- OUTSIDE RECORDS SUMMARY | 2023-07-27 18:52 | XMS RPT_ITS | CCD ---
Author Name Unknown Address [address] [place] [address] Organization [facility] Care Team Providers Care Frame Straightener Name Role Phone Jason Jerez MD Unavailable Mady Dunn MD Primary Care Provider Alannah SIDDIQI, Kolton Bhat Unavailable Unavailabl e Angélica Trevino DO Unavailable Luis Rolly F Unavailable Erin Robledo MD Unavailable Mady Dunn MD Primary Care Provider Kolton Jaffe RN Unavailable Unavailabl e Angélica Trevino DO Unavailable Rolly Smith F Unavailable Erin Robledo MD Unavailable Rolly Smith Unavailable PROVIDER, UNKNOWN Referring Unavailable MADY DUNN Primary Care Unavailable Alannah Hi RN Unavailable UnavailMady Clinton MD Primary Care Provider Alannah Hi RN Unavailable Unavailabl e Angélica Trevino DO D Unavailable Luis Rolly F Unavailable Erin Robledo MD Unavailable MADY DUNN Primary Care Unavailable SPENCER BOONE Attending Unavail able ANGÉLICA TREVINO Referring Unavailable ANA HERNANDEZ Referring Unavailable AYDIN DUNNA Rohit Primary Care Unavailable MADY DUNN Primary Care Unavailable SPENCER BOONE Attending Unavail able SPENCER BOONE Referring Unavail able Kolton RN, Alannah Bhat Unavailable Unavailabl e Luis GOETZ, Rolly F Unavailable TALAMPAS, MADY D Primary Care Unavailable JOSE ARMANDO, ROSAURA Attending Unavailable TALAMPAS, MADY D Primary Care Unavailable JOSE ARMANDO, ROSAURA Referring Unavailable TALAMPAS, MADY D Primary Care Unavailable JOSE ARMANDO, ROSAURA Referring Unavailable TALAMPAS, MADY D Primary Care Unavailable JOSE ARMANDO, ROSAURA Referring Unavailable TALAMPAS, MADY D Primary Care Unavailable JOSE ARMANDO, ROSAURA Attending Unavailable TALAMPAS, MADY D Primary Care Unavailable JOSE ARMANDO, ROSAURA Referring Unavailable TALAMPAS, MADY D Primary Care Unavailable JOSE ARMANDO, ROSAURA Referring Unavailable TALAMPAS, MADY D Primary Care Unavailable JOSE ARMANDO, ROSAURA Referring Unavailable TALAMPAS, MADY D Primary Care Unavailable JOSE ARMANDO, ROSAURA Referring Unavailable TALAMPAS, MADY D Primary Care Unavailable JOSE ARMANDO, ROSAURA Referring Unavailable TALAMPAS, MADY D Primary Care Unavailable JOSE ARMANDO, ROSAURA Attending Unavailable TALAMPAS, MADY D Primary Care Unavailable DIANA OLMOS Referring Unavailable TALAMPAS, MADY D Primary Care Unavailable TALAMPAS, MADY D Primary Care Unavailable JOSE ARMANDO, ROSAURA Attending Unavailable TALAMPAS, MADY D Primary Care Unavailable JOSE ARMANDO, ROSAURA Attending Unavailable TALAMPAS, MADY D Primary Care Unavailable JOSE ARMANDO, ROSAURA Attending Unavailable TALAMPAS, MADY D Primary Care Unavailable JOSE ARMANDO, ROSAURA Referring Unavailable TALAMPAS, MADY D Referring Unavailable TALAMPAS, MADY D Primary Care Unavailable TALAMPAS, MADY D Referring Unavailable TALAMPAS, MADY D Primary Care Unavailable TALAMPAS, MADY D Referring Unavailable TALAMPAS, MADY D Primary Care Unavailable TALAMPAS, MADY D Primary Care Unavailable JOSE ARMANDO, ROSAURA Attending Unavailable TALAMPAS, MADY D Primary Care Unavailable JOSE ARMANDO, ROSAURA Referring Unavailable TALAMPAS, MADY D Attending Unavailable TALAMPAS, MADY D Primary Care Unavailable TALAMPAS, MADY D Primary Care Unavailable JOSE ARMANDO, ROSAURA Referring Unavailable ARTIE DUVAL Attending Unavailable JOSE ARMANDO, ROSAURA Referring Unavailable TALAMPAS, MADY D Primary Care Unavailable ARTIE DUVAL Attending Unavailable JOSE ARMANDO, ROSAURA Referring Unavailable TALAMPAS, MADY D Primary Care Unavailable TALAMPAS, MADY D Primary Care Unavailable JOSE ARMANDO, ROSAURA Referring Unavailable ANA HERNANDEZ Attending Unavailable DORA KONG Referring Unavailable TALAMPAS, MADY D Primary Care Unavailable TALAMPAS, MADY D Primary Care Unavailable DORA KONG Attending Unavailable TALAMPAS, MADY D Primary Care Unavailable DORA KONG Referring Unavailable VALDOVINOSMADDISON Attending Unavailable TALAMPAS, MADY D Primary Care Unavailable TALAMPAS, MADY D Attending Unavailable VALDOVINOS, MADDISON Referring Unavailable TALAMPAS, MADY D Primary Care Unavailable TALAMPAS, MADY D Primary Care Unavailable ROSAURA SUÁREZ Attending Unavailable TALAMPAS, MADY D Primary Care Unavailable ROSAURA SUÁREZ Referring Unavailable Allergies Allergy Classification Reported Allergen(s) Allergy Type Date of Onset Reaction(s) Facility (20 sources) aspirin; Translations: [ASPIRIN] Drug Allergy 5 Unknown [facility] [employer] Work Phone: (20 sources) lisinopril; Translations: [LISINOPRIL] Drug Allergy 2 Cough [facility] [employer] Work Phone: (20 sources) amLODIPine; Translations: [AMLODIPINE] Drug Allergy 6 Swelling [facility] Work Phone: (20 sources) rOPINIRole; Translations: [ROPINIROLE] Drug Allergy 8 Other: See Comments [facility] Work Phone: Medications Current Medications Medication Drug Class(es) Dates Sig (Normalized) Sig (Original) cefdinir 300 mg oral capsule (2 sources) Cephalosporin Antibacterial Start: 12-27-2022 End: 01-06-2023 take 1 capsule by mouth twice daily cefdinir (OMNICEF) 300 mg capsule Indications: Diverticulitis , Dysuria Take 1 capsule by mouth twice daily for 10 days. 20 capsule 0 12/27/2022 01/06/2023 Active Completed/Discontinued Medications Medication Drug Class(es) Dates Sig (Normalized) Sig (Original) [id number] 200 actuat albuterol 0.09 mg/actuat metered dose inhaler (20 sources) beta2-Adrenergic Agonist Start: 09-17-2022 albuterol (PROVENTIL) 2.5 mg /3 mL (0.083 %) nebulizer solution Indications: 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) , COPD with exacerbation (HCC) Use 3 mL via nebulizer four times daily. USE 1 VIAL (3 ML) VIA NEBULIZER FOUR TIMES A DAY OVER 5 TO 15 MINUTES FOR WHEEZING AND SHORTNESS OF BREATH 1200 mL 3 09/17/2022 Active Problems Active Problems Problem Classification Problem Date Documented Da te Episodic/Chronic Abdominal pain (1 source) Left lower quadrant pain; Translations: [Left lower quadrant pain] Episodic Asthma (2 sources) Exercise-induced asthma; Translations: [Exercise induced bronchospasm] Chronic Chronic kidney disease (20 sources) Chronic kidney disease stage 3; Translations: [CKD (chronic kidney disease) stage 3, GFR 30-59 ml/min] Onset: 07-30-2018 07-30-2018 Chronic Chronic kidney disease (1 source) Chronic kidney disease; Translations: [Stage 3a chronic kidney disease (HCC)] Onset: 07-31-2018 Chronic obstructive pulmonary disease and bronchiectasis (20 sources) Chronic obstructive lung disease; Translations: [Chronic obstructive pulmonary disease, unspecified] Onset: 08-24-2010 08-24-2010 Chronic Conduction disorders (20 sources) Bifascicular block; Translations: [Bifascicular block] Onset: 10-11-2016 10-11-2016 Chronic Disorders of lipid metabolism (20 sources) Hyperlipidemia; Translations: [Hyperlipidemia, unspecified] Onset: 04-21-2011 04-21-2011 Chronic Diverticulosis and diverticulitis (20 sources) Diverticulosis of colon; Translations: [Diverticulosis of large intestine without perforation or abscess without bleeding] 11-09-2006 Chronic Essential hypertension (20 sources) Hypertensive disorder; Translations: [Benign hypertension] Onset: 08-12-2009 06-14-2017 Chronic Immunizations and screening for infectious disease (2 sources) Needs influenza immunization; Translations: [Encounter for immunization] Episodic Nutritional deficiencies (20 sources) Vitamin D deficiency; Translations: [Vitamin D deficiency, unspecified] Onset: 03-06-2012 03-06-2012 Chronic Occlusion or stenosis of precerebral arteries (20 sources) Carotid artery stenosis; Translations: [Occlusion and stenosis of unspecified carotid artery] Onset: 06-14-2017 06-14-2017 Chronic Osteoarthritis (2 sources) Osteoarthritis; Translations: [Polyosteoarthritis, unspecified] Onset: 06-14-2017 06-14-2017 Chronic Osteoporosis (20 sources) Osteoporosis; Translations: [Age-related osteoporosis without current pathological fracture] Onset: 05-20-2005 05-20-2005 Chronic Other aftercare (1 source) Encounter for therapeutic drug level monitoring; Translations: [Encounter for therapeutic drug monitoring] Onset: 05-02-2023 Episodic Other and unspecified benign neoplasm (20 sources) History of polyp of colon; Translations: [Personal history of colonic polyps] 11-09-2006 Episodic Other bone disease and musculoskeletal deformities (7 sources) Osteopenia; Translations: [Other specified disorders of bone density and structure, other site] Onset: 05-23-2023 05-06-2023 Episodic Other bone disease and musculoskeletal deformities (1 source) Other specified disorders of bone density and structure, other site; Translations: [Osteopenia of lumbar spine] Onset: 05-09-2023 Episodic Other diseases of kidney and ureters (3 sources) Renal mass; Translations: [Other specified disorders of kidney and ureter] Chronic Other diseases of kidney and ureters (1 source) Disorder of kidney and/or ureter; Translations: [Other specified disorders of kidney and ureter] Chronic Other diseases of kidney and ureters (2 sources) Other specified disorders of kidney and ureter; Translations: [Other specified disorders of kidney and ureter] Onset: 12-28-2021 Chronic Other diseases of veins and lymphatics (3 sources) Lymphedema of bilateral lower limbs; Translations: [Lymphedema, not elsewhere classified] Chronic Other diseases of veins and lymphatics (4 sources) Bilateral lower limb edema; Translations: [Chronic venous hypertension (idiopathic) without complications of bilateral lower extremity] Chronic Other diseases of veins and lymphatics (1 source) Lymphedema, not elsewhere classified; Translations: [Lymphedema of both lower extremities] Onset: 09-17-2022 Chronic Other diseases of veins and lymphatics (1 source) Chronic venous hypertension (idiopathic) without complications of bilateral lower extremity; Translations: [Stasis edema of both lower extremities] Onset: 09-17-2022 Chronic Other diseases of veins and lymphatics (3 sources) Peripheral venous insufficiency; Translations: [Venous insufficiency (chronic) (peripheral)] Episodic Other gastrointestinal disorders (1 source) Constipation; Translations: [Constipation, unspecified] Episodic Other hereditary and degenerative nervous system conditions (20 sources) System disorder of the nervous system; Translations: [Other specified extrapyramidal and movement disorders] Onset: 05-20-2005 05-20-2005 Chronic Other hereditary and degenerative nervous system conditions (20 sources) Restless legs; Translations: [Restless legs syndrome] 11-09-2006 Chronic Other lower respiratory disease (1 source) Interstitial lung disease; Translations: [Interstitial pulmonary disease, unspecified] 05-17-2022 Chronic Other lower respiratory disease (1 source) Restrictive lung disease; Translations: [Other disorders of lung] Episodic Other lower respiratory disease (1 source) Dyspnea; Translations: [Shortness of breath] Episodic Other lower respiratory disease (1 source) Cough; Translations: [Acute cough] Episodic Other lower respiratory disease (1 source) Hypoxia; Translations: [Hypoxemia] 07-01-2023 Episodic Other lower respiratory disease (1 source) Shortness of breath; Translations: [SOB (shortness of breath)] Onset: 04-25-2023 Episodic Other nervous system disorders (1 source) Other chronic pain; Translations: [Chronic bilateral thoracic back pain] Onset: 03-23-2023 Chronic Other nutritional; endocrine; and metabolic disorders (20 sources) Obese class I; Translations: [Obesity, unspecified] Onset: 07-30-2018 07-30-2018 Chronic Other screening for suspected conditions (not mental disorders or infectious disease) (4 sources) Radiologic opacity; Translations: [Abnormal findings on diagnostic imaging of other specified body structures] Onset: 08-04-2022 Chronic Other screening for suspected conditions (not mental disorders or infectious disease) (5 sources) Patient encounter status; Translations: [Encounter for screening for other disorder] Episodic Other upper respiratory disease (1 source) Allergic rhinitis; Translations: [Allergic rhinitis, unspecified] Chronic Otitis media and related conditions (1 source) Dysfunction of bilateral eustachian tubes; Translations: [Other specified disorders of Eustachian tube, bilateral] Episodic Peripheral and visceral atherosclerosis (20 sources) Peripheral vascular disease, unspecified; Translations: [Peripheral vascular disease, unspecified] Onset: 11-11-2021 Chronic Residual codes; unclassified (2 sources) Insomnia; Translations: [Insomnia, unspecified] Episodic Residual codes; unclassified (1 source) Peripheral edema; Translations: [Edema, unspecified] Episodic Residual codes; unclassified (1 source) Postmenopausal state; Translations: [Asymptomatic menopausal state] 05-06-2023 Episodic Transient cerebral ischemia (20 sources) Transient cerebral ischemia; Translations: [Transient cerebral ischemic attack, unspecified] Onset: 06-14-2017 06-14-2017 Chronic Unclassified (1 source) Lumbar pain; Translations: [Lumbar pain] Onset: 03-23-2023 Unclassified (1 source) Acute cough; Translations: [Acute cough] Onset: 10-30-2022 Past or Other Problems Problem Classification Problem Date Documented Da te Episodic/Chronic Calculus of urinary tract (20 sources) Ureteric stone; Translations: [Calculus of ureter] Onset: 06-02-2012 07-13-2021 Episodic Deficiency and other anemia (1 source) Anemia, unspecified; Translations: [Anemia, unspecified type] Onset: 12-23-2022 Episodic Deficiency and other anemia (1 source) Iron deficiency anemia, unspecified; Translations: [Iron deficiency anemia, unspecified iron deficiency anemia type] Onset: 12-23-2022 Episodic Fluid and electrolyte disorders (20 sources) Hypokalemia; Translations: [Hypokalemia] Onset: 08-12-2009 08-12-2009 Episodic Gastritis and duodenitis (20 sources) Acute gastritis; Translations: [Acute gastritis without bleeding] Onset: 03-31-2012 03-31-2012 Episodic Hemorrhoids (2 sources) Hemorrhoids; Translations: [Unspecified hemorrhoids] Onset: 06-14-2017 06-14-2017 Episodic Neoplasms of unspecified nature or uncertain behavior (8 sources) 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; 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] Onset: 12-28-2021 Episodic Other aftercare (1 source) Other retirement (current) drug therapy; Translations: [Encounter for long-term current use of medication] Onset: 10-05-2022 Episodic Other connective tissue disease (2 sources) Pain in lower limb; Translations: [Pain in leg, unspecified] Onset: 06-14-2017 06-14-2017 Episodic Other connective tissue disease (20 sources) Peripheral enthesopathies and allied syndromes; Translations: [Peripheral enthesopathies and allied syndromes] Onset: 05-20-2005 05-20-2005 Episodic Other connective tissue disease (20 sources) Peripheral enthesopathy; Translations: [Peripheral enthesopathies and allied syndromes] Onset: 05-20-2005 05-20-2005 Episodic Other diseases of kidney and ureters (1 source) Disorder of kidney and ureter, unspecified; Translations: [Acute on chronic renal insufficiency] Onset: 12-23-2022 Episodic Other gastrointestinal disorders (20 sources) Feces contents abnormal; Translations: [Other fecal abnormalities] Onset: 03-31-2012 03-31-2012 Episodic Pleurisy; pneumothorax; pulmonary collapse (3 sources) Atelectasis; Translations: [Atelectasis] Onset: 08-04-2022 Episodic Residual codes; unclassified (1 source) Insomnia, unspecified; Translations: [Insomnia, unspecified type] Onset: 09-03-2022 Episodic Screening and history of mental health and substance abuse codes (4 sources) Ex-smoker; Translations: [Personal history of nicotine dependence] Onset: 08-04-2022 Episodic Spondylosis; intervertebral disc disorders; other back problems (20 sources) Brachial neuritis; Translations: [Radiculopathy, cervical region] Onset: 05-24-2008 05-24-2008 Episodic Viral infection (20 sources) Herpes zoster without complication; Translations: [Zoster without complications] Onset: 02-28-2016 02-28-2016 Episodic Results Test Name Value Interpretation Reference Range Facil ity Vital Signs Date Time Vital Sign Value Performing Clinician Facility 07-01-2023 13:59-0500 Body weight 68.49 kg Rosaura Suárez APRN.CNP Work Phone: [facility] 07-01-2023 13:59-0500 Diastolic blood pressure 50 mm[Hg] Rosaura Suárez APRN.CNP Work Phone: [facility] 07-01-2023 13:59-0500 Heart rate 68 /min Rosaura Suárez APRN.CNP Work Phone: [facility] 07-01-2023 13:59-0500 SaO2% (BldA) [Mass fraction] 96 % Rosaura Suárez APRN.CNP Work Phone: [facility] 07-01-2023 13:59-0500 Systolic blood pressure 118 mm[Hg] Rosaura Suárez APRN.CNP Work Phone: [facility] 05-23-2023 07:53-0500 Diastolic blood pressure 56 mm[Hg] Rosaura Suárez APRN.CNP Work Phone: [facility] 05-23-2023 07:53-0500 Heart rate 70 /min Rosaura Jose Armando INTERACTIVE VIDEO TECHNICIAN.TAKE OFF WORKER Work Phone: [facility] 05-23-2023 07:53-0500 Systolic blood pressure 143 mm[Hg] Rosaura Jose Armando INTERACTIVE VIDEO TECHNICIAN.TAKE OFF WORKER Work Phone: [facility] 05-23-2023 07:51-0500 Body weight 70.76 kg Rosaura Jose Armando INTERACTIVE VIDEO TECHNICIAN.TAKE OFF WORKER Work Phone: [facility] 05-23-2023 07:51-0500 SaO2% (BldA) [Mass fraction] 97 % Rosaura Jose Armando INTERACTIVE VIDEO TECHNICIAN.TAKE OFF WORKER Work Phone: [facility] 05-06-2023 08:58-0400 Diastolic blood pressure 62 mm[Hg] Rosaura Jose Armando INTERACTIVE VIDEO TECHNICIAN.TAKE OFF WORKER Work Phone: [facility] 05-06-2023 08:58-0400 Systolic blood pressure 164 mm[Hg] Rosaura Jose Armando INTERACTIVE VIDEO TECHNICIAN.TAKE OFF WORKER Work Phone: [facility] 05-06-2023 08:56-0400 Body weight 71.67 kg Rosaura Jose Armando INTERACTIVE VIDEO TECHNICIAN.TAKE OFF WORKER Work Phone: [facility] 05-06-2023 08:56-0400 Heart rate 68 /min Rosaura Jose Armando INTERACTIVE VIDEO TECHNICIAN.TAKE OFF WORKER Work Phone: [facility] 05-06-2023 08:56-0400 SaO2% (BldA) [Mass fraction] 97 % Rosaura Jose Armando INTERACTIVE VIDEO TECHNICIAN.TAKE OFF WORKER Work Phone: [facility] 03-23-2023 08:52-0400 Diastolic blood pressure 52 mm[Hg] Rosaura Jose Armando INTERACTIVE VIDEO TECHNICIAN.TAKE OFF WORKER Work Phone: [facility] 03-23-2023 08:52-0400 Systolic blood pressure 130 mm[Hg] Rosaura Jose Armando INTERACTIVE VIDEO TECHNICIAN.TAKE OFF WORKER Work Phone: [facility] 03-23-2023 08:51-0400 Body weight 70.76 kg Rosaura Jose Armando INTERACTIVE VIDEO TECHNICIAN.TAKE OFF WORKER Work Phone: [facility] 03-23-2023 08:51-0400 Heart rate 71 /min Rosaura Jose Armando INTERACTIVE VIDEO TECHNICIAN.TAKE OFF WORKER Work Phone: [facility] 03-23-2023 08:51-0400 SaO2% (BldA) [Mass fraction] 97 % Rosaura Jose Armando INTERACTIVE VIDEO TECHNICIAN.TAKE OFF WORKER Work Phone: [facility] 10-30-2022 08:23-0400 Body temperature 96.6 [degF] Diana Olmos INTERACTIVE VIDEO TECHNICIAN.TAKE OFF WORKER Work Phone: [facility] 10-30-2022 08:23-0400 Body weight 76.57 kg Diana Olmos INTERACTIVE VIDEO TECHNICIAN.TAKE OFF WORKER Work Phone: [facility] 10-30-2022 08:23-0400 Diastolic blood pressure 82 mm[Hg] Diana Olmos INTERACTIVE VIDEO TECHNICIAN.TAKE OFF WORKER Work Phone: [facility] 10-30-2022 08:23-0400 Heart rate 70 /min Diana Olmos INTERACTIVE VIDEO TECHNICIAN.TAKE OFF WORKER Work Phone: [facility] 10-30-2022 08:23-0400 Respiratory rate 20 /min Diana Olmos INTERACTIVE VIDEO TECHNICIAN.TAKE OFF WORKER Work Phone: [facility] 10-30-2022 08:23-0400 SaO2% (BldA) [Mass fraction] 96 % Diana Olmos INTERACTIVE VIDEO TECHNICIAN.TAKE OFF WORKER Work Phone: [facility] 10-30-2022 08:23-0400 Systolic blood pressure 132 mm[Hg] Diana Olmos INTERACTIVE VIDEO TECHNICIAN.TAKE OFF WORKER Work Phone: [facility] 09-17-2022 14:21-0500 Body temperature 96.91 [degF] Mady Dunn MD Work Phone: [facility] 09-17-2022 14:21-0500 Body weight 77.11 kg Mady Dunn MD Work Phone: [facility] 09-17-2022 14:21-0500 Diastolic blood pressure 62 mm[Hg] Mady Dunn MD Work Phone: [facility] 09-17-2022 14:21-0500 Heart rate 80 /min Mady Dunn MD Work Phone: [facility] 09-17-2022 14:21-0500 Respiratory rate 18 /min Mady Dunn MD Work Phone: [facility] 09-17-2022 14:21-0500 SaO2% (BldA) [Mass fraction] 95 % Mady Dunn MD Work Phone: [facility] 09-17-2022 14:21-0500 Systolic blood pressure 132 mm[Hg] Mady Dunn MD Work Phone: [facility] 09-03-2022 14:27-0500 Diastolic blood pressure 71 mm[Hg] Maddison Valdovinos INTERACTIVE VIDEO TECHNICIAN.PROMOTIONS INTERN Work Phone: [facility] 09-03-2022 14:27-0500 Heart rate 72 /min Maddison Valdovinos INTERACTIVE VIDEO TECHNICIAN.PROMOTIONS INTERN Work Phone: [facility] 09-03-2022 14:27-0500 Systolic blood pressure 150 mm[Hg] Maddison Valdovinos INTERACTIVE VIDEO TECHNICIAN.PROMOTIONS INTERN Work Phone: [facility] 09-03-2022 14:23-0500 Body weight 77.56 kg Maddison Valdovinos INTERACTIVE VIDEO TECHNICIAN.PROMOTIONS INTERN Work Phone: [facility] 09-03-2022 14:23-0500 Respiratory rate 16 /min Maddison Valdovinos INTERACTIVE VIDEO TECHNICIAN.[employer]OT[employer] INTERN Work Phone: [facility] 09-03-2022 14:23-0500 SaO2% (BldA) [Mass fraction] 96 % Maddison Valdovinos INTERACTIVE VIDEO TECHNICIAN.PROMOT[employer] INTERN Work Phone: [facility] 07-29-2022 09:38-0500 Body weight 77.56 kg Dora Kong MD Work Phone: [facility] 07-29-2022 09:38-0500 Diastolic blood pressure 68 mm[Hg] Dora Kong MD Work Phone: [facility] 07-29-2022 09:38-0500 Heart rate 70 /min Dora Kong MD Work Phone: [facility] 07-29-2022 09:38-0500 SaO2% (BldA) [Mass fraction] 96 % Dora Kong MD Work Phone: [facility] 07-29-2022 09:38-0500 Systolic blood pressure 124 mm[Hg] Dora Kong MD Work Phone: [facility] 06-16-2022 11:00-0500 Body temperature 96.21 [degF] Rosaura Jose Armando INTERACTIVE VIDEO TECHNICIAN.TAKE OFF WORKER Work Phone: [facility] 06-16-2022 11:00-0500 Body weight 78.47 kg Rosaura Jose Armando INTERACTIVE VIDEO TECHNICIAN.TAKE OFF WORKER Work Phone: [facility] 06-16-2022 11:00-0500 Diastolic blood pressure 50 mm[Hg] Rosaura Jose Armando INTERACTIVE VIDEO TECHNICIAN.TAKE OFF WORKER Work Phone: [facility] 06-16-2022 11:00-0500 Heart rate 82 /min Rosaura Jose Armando INTERACTIVE VIDEO TECHNICIAN.TAKE OFF WORKER Work Phone: [facility] 06-16-2022 11:00-0500 Respiratory rate 20 /min Rosaura Jose Armando INTERACTIVE VIDEO TECHNICIAN.TAKE OFF WORKER Work Phone: [facility] 06-16-2022 11:00-0500 SaO2% (BldA) [Mass fraction] 98 % Rosaura Jose Armando INTERACTIVE VIDEO TECHNICIAN.TAKE OFF WORKER Work Phone: [facility] 06-16-2022 11:00-0500 Systolic blood pressure 138 mm[Hg] Rosaura Jose Armando INTERACTIVE VIDEO TECHNICIAN.TAKE OFF WORKER Work Phone: [facility] 04-28-2022 09:32-0400 Body height 157.5 cm Spencer Boone MD Work Phone: [facility] 04-28-2022 09:32-0400 Body weight 79.38 kg Spencer Boone MD Work Phone: [facility] 04-28-2022 09:32-0400 Diastolic blood pressure 80 mm[Hg] Spencer Boone MD Work Phone: [facility] 04-28-2022 09:32-0400 Systolic blood pressure 168 mm[Hg] Spencer Boone MD Work Phone: [facility] 04-26-2022 14:05-0400 Body weight 79.47 kg Dora Kong MD Work Phone: [facility] 04-26-2022 14:05-0400 Diastolic blood pressure 75 mm[Hg] Dora Kong MD Work Phone: [facility] 04-26-2022 14:05-0400 Heart rate 69 /min Dora Kong MD Work Phone: [facility] 04-26-2022 14:05-0400 SaO2% (BldA) [Mass fraction] 95 % Dora Kong MD [facility] System 04-26-2022 14:05-0400 Systolic blood pressure 183 mm[Hg] Dora Kong MD Work Phone: [facility] 03-09-2022 10:11-0400 Body height 157.5 cm Angélica Trevino DO Work Phone: [facility] 03-09-2022 10:11-0400 Body weight 76.66 kg Angélica Trevino DO Work Phone: [facility] 03-09-2022 10:11-0400 Diastolic blood pressure 84 mm[Hg] Angélica Trevino DO Work Phone: [facility] 03-09-2022 10:11-0400 Heart rate 83 /min Angélica Trevino DO Work Phone: [facility] 03-09-2022 10:11-0400 SaO2% (BldA) [Mass fraction] 97 % Angélica Trevino DO Work Phone: [facility] 03-09-2022 10:11-0400 Systolic blood pressure 178 mm[Hg] Angélica Trevino DO Work Phone: [facility] 02-01-2022 11:29-0400 Diastolic blood pressure 75 mm[Hg] Maddison Valdovinos INTERACTIVE VIDEO TECHNICIAN.PROMOTIONS INTERN Work Phone: [facility] 02-01-2022 11:29-0400 Heart rate 66 /min Maddison Valdovinos INTERACTIVE VIDEO TECHNICIAN.PROMOT[employer] INTERN Work Phone: [facility] 02-01-2022 11:29-0400 Systolic blood pressure 159 mm[Hg] Maddison Valdovinos INTERACTIVE VIDEO TECHNICIAN.PROMOT[employer] INTERN Work Phone: [facility] 02-01-2022 11:12-0400 Body weight 77.11 kg Maddison Valdovinos INTERACTIVE VIDEO TECHNICIAN.PROMOT[employer] INTERN Work Phone: [facility] 02-01-2022 11:12-0400 Respiratory rate 16 /min Maddison Valdovinos INTERACTIVE VIDEO TECHNICIAN.[employer]OT[employer] INTERN Work Phone: [facility] 02-01-2022 11:12-0400 SaO2% (BldA) [Mass fraction] 96 % Maddison Valdovinos INTERACTIVE VIDEO TECHNICIAN.PROMOT[employer] INTERN Work Phone: [facility] 12-28-2021 09:43-0400 Body height 157.5 cm Spencer Boone MD Work Phone: [facility] 12-28-2021 09:43-0400 Body weight 77.11 kg Spencer Boone MD Work Phone: [facility] 12-28-2021 09:43-0400 Diastolic blood pressure 80 mm[Hg] Spencer Boone MD Work Phone: [facility] 12-28-2021 09:43-0400 Systolic blood pressure 130 mm[Hg] Spencer Boone MD Work Phone: [facility] 12-08-2021 11:25-0400 Body height 157.5 cm Angélica Trevino DO Work Phone: [facility] 12-08-2021 11:25-0400 Body weight 77.11 kg Angélica Trevino DO Work Phone: [facility] 12-08-2021 11:25-0400 Diastolic blood pressure 70 mm[Hg] Angélica Trevino DO Work Phone: [facility] 12-08-2021 11:25-0400 Heart rate 81 /min Angléica Trevino DO Work Phone: [facility] 12-08-2021 11:25-0400 SaO2% (BldA) [Mass fraction] 98 % Angélica Trevino DO Work Phone: [facility] 12-08-2021 11:25-0400 Systolic blood pressure 148 mm[Hg] Anéglica Trevino DO Work Phone: [facility] 11-24-2021 11:07-0400 Body height 157.5 cm Angélica Trevino DO Work Phone: [facility] 11-24-2021 11:07-0400 Body weight 78.47 kg Angélica Trevino DO Work Phone: [facility] 11-24-2021 11:07-0400 Diastolic blood pressure 52 mm[Hg] Angélica Trevino DO Work Phone: [facility] 11-24-2021 11:07-0400 Heart rate 72 /min Angélica Trevino DO Work Phone: [facility] 11-24-2021 11:07-0400 SaO2% (BldA) [Mass fraction] 98 % Angélica Trevino DO Work Phone: [facility] 11-24-2021 11:07-0400 Systolic blood pressure 145 mm[Hg] Angélica Monroele DO Work Phone: [facility] 11-11-2021 08:55-0400 Body weight 78.93 kg Chanelle Tannhof INTERACTIVE VIDEO TECHNICIAN.TAKE OFF WORKER Work Phone: [facility] 11-11-2021 08:55-0400 Diastolic blood pressure 68 mm[Hg] Chanelle Tannhof INTERACTIVE VIDEO TECHNICIAN.TAKE OFF WORKER Work Phone: [facility] 11-11-2021 08:55-0400 Heart rate 77 /min Chanelle Tannhof INTERACTIVE VIDEO TECHNICIAN.TAKE OFF WORKER Work Phone: [facility] 11-11-2021 08:55-0400 Respiratory rate 16 /min Chanelle Blanchardjose INTERACTIVE VIDEO TECHNICIAN.TAKE OFF WORKER Work Phone: [facility] 11-11-2021 08:55-0400 SaO2% (BldA) [Mass fraction] 97 % Chanelle Blanchardalbertaalberto INTERACTIVE VIDEO TECHNICIAN.TAKE OFF WORKER Work Phone: [facility] 11-11-2021 08:55-0400 Systolic blood pressure 150 mm[Hg] Chanelle Blanchardjose INTERACTIVE VIDEO TECHNICIAN.TAKE OFF WORKER Work Phone: [facility] 06-14-2017 13:20-0500 BMI (Body Mass Index) 29.32 kg/m2 Jason Jerez MD [facility] [employer] Work Phone: 06-14-2017 13:20-0500 Body Temperature 97.4 [degF] Jason Jerez MD [facility] [employer] Work Phone: 06-14-2017 13:20-0500 BP Diastolic 77 mm[Hg] Jason Jerez MD [facility] [employer] Work Phone: 06-14-2017 13:20-0500 BP Systolic 168 mm[Hg] Jason Jerez MD [facility] [employer] Work Phone: 06-14-2017 13:20-0500 Height 157.48 cm Jason Jerez MD [facility] [employer] Work Phone: 06-14-2017 13:20-0500 Pulse (Heart Rate) 84 /min Jason Jerez MD [facility] [employer] Work Phone: 06-14-2017 13:20-0500 Respiratory Rate 20 /min Jason Jerez MD [facility] [employer] Work Phone: 06-14-2017 13:20-0500 Weight 72.71 kg Jason Jerez MD [facility] [employer] Work Phone: Encounters Encounter Date Encounter Type Care Provider Facility Start: 07-19-2023 End: 07-20-2023 ambulatory MADY DUNN Facility:[facility] Start: 07-14-2023 End: 07-15-2023 ambulatory MADY DUNN Facility:[facility] Start: 07-07-2023 ambulatory Mady ramos MD Work Phone: [facility] [place] Procedures Date Procedure Procedure Detail Performing Clinician Start: 05-09-2023 Dxa bone density study 1/> sites axial skel Rosaura Suárez INTERACTIVE VIDEO TECHNICIAN.TAKE OFF WORKER Work Phone: Start: 05-02-2023 Echocardiography MADY DUNN Start: 03-23-2023 INFLUENZA VACCINE, PRSV FREE, AGE 65+ YR, HIGH DOSE, QUADRIVALENT (FLUZONE HIGH-DOSE) Rosaura Suárez INTERACTIVE VIDEO TECHNICIAN.TAKE OFF WORKER Work Phone: Start: 08-04-2022 Ct thorax w/o contrast material Dora Kong MD Work Phone: Start: 07-29-2022 INFLUENZA SEASONAL QUADRIVALENT HIGH DOSE AGE 65+ Dora Kong MD Work Phone: Start: 05-17-2022 Ct thorax w/o contrast material Dora Kong MD Work Phone: Start: 04-28-2022 Urnls dip stick/tablet rgnt auto w/o microscopy Spencer Boone MD Work Phone: Start: 04-21-2022 Ct abdomen w/o & w/contrast material Spencer Boone MD Work Phone: Start: 04-15-2022 Spmtry w/vc expiratory [place] w/wo mxml vol vntj Ana Hernandez PA-C Work Phone: Start: 12-28-2021 Urnls dip stick/tablet rgnt auto w/o microscopy Spencer Boone MD Work Phone: Start: 12-08-2021 Cta abdl aorta&bi iliofem w/contrast&postp Angélica Trevino DO Work Phone: Start: 02-18-2011 H/O: surgery S/P unilateral salpingo-oophorectomy Kolton Jaffe RN Start: 08-04-2011 History of total hysterectomy S/P JENNY (total abdominal hysterectomy) Kolton Jaffe RN Plan of Treatment Date Care Activity Detail Author Start: 05-02-2026 Diabetes Screening Diabetes Screenin annita [facility] Start: 12-31-2025 DIABETES SCREEN DIABETES SCREEN [facility] Start: 12-31-2025 Diabetes Screening Diabetes Screenin [facility] Start: 12-23-2025 DIABETES SCREEN DIABETES SCREEN [facility] Start: 10-05-2025 DIABETES SCREEN DIABETES SCREEN [facility] Start: 09-17-2025 DIABETES SCREEN DIABETES SCREEN [facility] Start: 03-30-2025 DIABETES SCREEN DIABETES SCREEN [facility] Start: 01-28-2025 DIABETES SCREEN DIABETES SCREEN [facility] Start: 01-25-2024 DIABETES SCREEN DIABETES SCREEN [facility] Start: 03-23-2023 End: 05-23-2023 Basic metabolic 2000 panel - Serum or Plasma BASIC METABOLIC PNL Lab Routine Encounter for therapeutic drug monitoring Primary hypertension Stage 3a chronic kidney disease (HCC) Expected: 03/23/2023, Expires: 05/23/2023 [facility] Work Phone: Immunizations Immunization Date Immunization Notes Care Provider Fa bony 03-23-2023 influenza (HD-IIV4) vaccine, age 65+ yr, high dose, quadrivalent, PF (FLUZONE HIGH-DOSE) Rosaura Suárez APRN.CNP Work Phone: [facility] Work Phone: 07-29-2022 influenza, high-dose , quadrivalent vaccine (FLUZONE HIGH DOSE QUADRIVALENT) Dora Kong MD Work Phone: [facility] 05-01-2021 influenza, high-dose , quadrivalent vaccine (FLUZONE HIGH DOSE QUADRIVALENT) Kolton Jaffe RN [facility] Work Phone: 09-14-2020 COVID-19 vaccine, fu ll dose (MODERNA) Kolton Jaffe RN [facility] Work Phone: 08-16-2020 COVID-19 vaccine, fu ll dose (MODERNA) Kolton Jaffe RN [facility] Work Phone: 04-04-2020 influenza, high-dose , quadrivalent vaccine (FLUZONE HIGH DOSE QUADRIVALENT) Kolton Jaffe RN [facility] 05-04-2019 influenza, high dose seasonal, preservative-free Kolton Jaffe RN [facility] 07-07-2018 influenza, high dose seasonal, preservative-free Kolton Jaffe RN [facility] 05-07-2017 influenza, injectabl e, quadrivalent, contains preservative Kolton Jaffe RN [facility] Work Phone: 05-07-2017 influenza, injectabl e, quadrivalent, preservative free Alannahdoris Hi [facility] Work Phone: 05-07-2017 influenza, seasonal, injectable Dora Kong MD Work Phone: [facility] Work Phone: 06-16-2016 influenza, high dose seasonal, preservative-free Kolton Jaffe RN [facility] 05-24-2016 influenza, injectabl e, quadrivalent, preservative free Dora Kong MD Work Phone: [facility] Work Phone: 05-24-2016 influenza, seasonal, injectable Alannah Kolton [facility] Work Phone: 05-01-2015 influenza, seasonal, injectable Kolton Jaffe RN [facility] 11-14-2014 pneumococcal conjuga te vaccine, 13 valent Kolton Jaffe RN [facility] 07-04-2013 influenza virus vacc ine, unspecified formulation Kolton Jaffe RN [facility] 03-17-2013 tetanus toxoid, redu maria dolores diphtheria toxoid, and acellular pertussis vaccine, adsorbed Kolton Jaffe RN [facility] 10-22-2012 pneumococcal polysaccharide vaccine, 23 valent Kolton Jaffe RN [facility] 04-24-2012 influenza virus vacc ine, unspecified formulation Kolton Jaffe RN [facility] 04-21-2011 influenza virus vacc ine, unspecified formulation Kolton Jaffe RN [facility] 08-21-2010 influenza virus vacc ine, unspecified formulation Kolton Jaffe RN [facility] 05-01-2009 influenza virus vacc ine, unspecified formulation Kolton Jaffe RN [facility] 05-20-2008 influenza virus vacc ine, unspecified formulation Kolton Jaffe RN [facility] Work Phone: 05-20-2008 pneumococcal polysaccharide vaccine, 23 valent Kolton Jaffe RN [facility] Work Phone: 05-20-2005 influenza virus vacc ine, unspecified formulation Kolton Jaffe RN [facility] Work Phone: Payers Date Payer Category Payer Medicare MMO MEDICARE MMO MEDADVANTAGE O [id number] 2020-Present [phone] [address] [place] [id number] O [id number] 2020 Medicare MMO MEDICARE MMO MEDADVANTAGE O [id number] 2020-Present [phone] [address] [place] [id number] O [id number] 2020 Unknown [id number] Social History Date Type Detail Facility Start: 10-11-2016 End: 03-09-2022 Tobacco smoking status NHIS Ex-smoker [facility] Work Phone: Start: 08-11-1961 End: 10-04-2016 History of tobacco use Current smoker [facility] Work Phone: Start: 08-11-1961 End: 10-04-2016 History of tobacco use Cigarette Smoker [facility] Work Phone: Start: 10-11-2016 End: 12-27-2022 Cigarettes smoked current (pack per day) - Reported 1 [facility] Start: 10-11-2016 End: 03-09-2022 Tobacco use and exposure Smokeless tobacco non-user [facility] Work Phone: Start: 08-25-2021 End: 07-01-2023 Alcohol intake Current drinker of alcohol (finding) [facility] Start: 05-24-2020 End: 09-11-2022 History SDOH Alcohol Frequency 1 [facility] Start: 05-24-2020 History SDOH Alcohol Std Drinks 98 [facility] Start: 07-30-2021 History SDOH Alcohol Comment very seldom [facility] Start: 05-24-2020 End: 09-11-2022 History SDOH Social Connections Phone 3 [facility] Start: 05-24-2020 End: 09-11-2022 History SDOH Social Connections Membership 2 [facility] Start: 05-24-2020 End: 09-11-2022 History SDOH Social Connections Living 5 [facility] Start: 05-24-2020 End: 09-11-2022 History SDOH Physical Activity DPW 0 [facility] Start: 05-24-2020 Education 12 [facility] Start: 08-11-2018 End: 03-09-2022 Tobacco Comment 10-20 year period in 30-40s when quit. [facility] Start: 1935 Sex Assigned At Not on file [facility] Start: 11-01-2021 End: 04-21-2022 Exposure to SARS-CoV-2 (event) Not sure [facility] Start: 09-11-2022 End: 12-27-2022 Social connection and isolation panel [facility] Do you belong to any clubs or organizations such as pentecostalism groups, unions, fraternal or athletic groups, or school groups? No [facility] Are you now , , , , never or living with a partner? [facility] How often to you hav e a drink containing alcohol? Never [facility] How many standard dr inks containing alcohol do you have on a typical day? Patient does not drink [facility] Do you feel stress - tense, restless, nervous, or anxious, or unable to sleep at night because your mind is troubled all the time - these days [OSQ] Only a little [facility] (I/We) worried wheth er (my/our) food would run out before (I/we) got money to buy more. Never true [facility] Start: 10-07-2020 Sexual orientation Choose not to disclose [facility] Do you feel stress - tense, restless, nervous, or anxious, or unable to sleep at night because your mind is troubled all the time - these days [OSQ] To some extent [facility] Medical Equipment Procedure Code Equipment Code Equipment Origin al Text Equipment Identifier Dates Patch Xenosure B ovine Pericardial Tissue 8x.8cm Vascular Sterile - [id number] Start: 01-23-2021 Goals Date Patient Goal Desired Activity /State Personal health goal Clinical Notes 12-11-2014 to 07-19-2023 Telephone Encounter - Janice Jessica RN - 07/07/2023 11:18 AM Rosaura Vazquez APRN.TAKE OFF WORKER - 07/01/2023 2:14 PM Alannah Easley RN - 06/30/2023 2:22 PM ESTPatient Instructions Note Date & Type Note Facility 07-19-2023 Note [facility] 07-14-2023 Note [facility] 07-07-2023 Miscellaneous Notes Patient call in for shortness of breath with dizziness and chest discomfort when laying down. Nurse Triage assessment completed with protocol recommending for disposition of Go to ED now. Care advice reviewed with patient, patient stated understanding. Reason for Disposition Dizziness or lightheadedness [1] MODERATE difficulty breathing (e.g., speaks in phrases, SOB even at rest, pulse 100-120) AND [2] NEW-onset or WORSE than normal Answer Assessment - Initial Assessment Questions 1. RESPIRATORY STATUS: Shortness of breath 2. ONSET: Today 3. PATTERN Constant 4. SEVERITY: Shortness of breath with activity, slight shortness of breath while resting. 5. RECURRENT SYMPTOM: Yes, she was in hospital for 6 days 6. CARDIAC HISTORY: Denies 7. LUNG HISTORY: COPD 8. CAUSE: Unsure 9. OTHER SYMPTOMS: Chest tightness when she lays down, lightheaded; abdominal cramping 10. O2 SATURATION MONITOR: 97 on room air. Answer Assessment - Initial Assessment Questions 1. LOCATION: Right in the center of the chest 2. RADIATION: Back hurts some as well. 3. ONSET: Last couple of nights 4. PATTERN: Comes and goes, hurts when she lays down 5. DURATION: Lasts as long as she is laying there. 6. SEVERITY: Can't get to sleep due to this 7. CARDIAC RISK FACTORS: Denies 8. PULMONARY RISK FACTORS: COPD 9. CAUSE: Unsure 10. OTHER SYMPTOMS: Dizziness, difficulty breathing Protocols used: Breathing [id number], Chest [id number] documented in this encounter [facility] 07-01-2023 Note [facility] 07-01-2023 Note [facility] 07-01-2023 History of Present illness Narrative Transitional Care Management Progress Note The patients TCM visit was performed within the 7 days of discharge. TCM Eligibility Documentation The following information was gathered during the initial Patient Outreach Encounter. No flowsheet data found. If no data exists please enter it manually. If data exists please delete date of discharge and date of initial contact seen below. Patient's Date of discharge: 06/25/2023 Date of initial coordinator contact after discharge: 06/28/2023 Discharge diagnosis: COPD exacerbation and hypoxia Medication review completed Yes, verified with visit today Rosaura Suáerz APRN.TAKE OFF WORKER Provider Documentation: In follow-up of hospitalization, Chanel Rousseau is a 87 year old female with the chief complaint of hospital discharge follow up. I have reviewed the patient s last hospital course including diagnostic testing performed during this hospitalization, their discharge medications, and my assessment and plan with the patient and any family members present at today s visit. HPI: Emerson presents today for a hospital discharge follow up. Admitted to [facility] 06/19 and discharged on 06/25. Had issues with a cough, more shortness of breath, diagnosed with a COPD exacerbation. Some shortness of breath today, no cough. No chest tightness. Ended up there 6 days. Treated with breathing treatments and steroids and antibiotics. No pneumonia seen but there was concerns of a possible bacterial infection. Breathing treatments helping some. Appetite is a little less since home. Not sleeping well. Napping during the day some. No issues with pain, no back pain. No cardiac issues seen in hospital work up. PAST MEDICAL HISTORY: Reviewed and updated PAST MEDICAL HISTORY Diagnosis Date Basal cell carcinoma Carotid stenosis CEA left CKD (chronic kidney disease) stage 3, GFR 30-59 ml/min ([facility]) 07/30/2018 COPD (chronic obstructive pulmonary disease) ([facility]) Diverticulosis of colon (without mention of hemorrhage) Diverticulosis Hypertension Rolly Smith MD Osteoporosis, unspecified Personal history of colonic polyps Colon polyps Restless legs syndrome (RLS) TIA (transient ischemic attack) 2009 Plavix ALLERGIES: Reviewed and updated ALLERGIES Allergen Reactions Amlodipine Swelling Lower leg edema. Aspirin Unknown Lisinopril Cough Requip [Ropinirole] Other: See Comments Very anxious MEDICATIONS: Reviewed and updated Current Outpatient Medications Medication Sig furosemide (LASIX) 40 mg tablet Take 1 tablet by mouth once daily. pramipexole (MIRAPEX) 1.5 mg tablet Take 1 tablet by mouth daily at bedtime. spironolactone (ALDACTONE) 50 mg tablet Take 1 tablet by mouth twice daily. carvedilol (COREG) 12.5 mg tablet Take 12.5 mg by mouth twice daily. ipratropium (ATROVENT) 0.02 % nebulizer solution USE 1 VIAL (2.5 ML) VIA NEBULIZER FOUR TIMES A DAY OVER 5 TO 15 MINUTES FOR WHEEZING OR SHORTNESS OF BREATH albuterol HFA (VENTOLIN HFA) 90 mcg/actuation inhaler Inhale 2 Puffs as instructed every 4 hours as needed for wheezing/shortness of breath. May take 2 puffs prior to exercise albuterol (PROVENTIL) 2.5 mg /3 mL (0.083 %) nebulizer solution Use 3 mL via nebulizer four times daily. USE 1 VIAL (3 ML) VIA NEBULIZER FOUR TIMES A DAY OVER 5 TO 15 MINUTES FOR WHEEZING AND SHORTNESS OF BREATH losartan-hydroCHLOROthiazide (HYZAAR) 100-25 mg per tablet Take 1 tablet by mouth once daily. clopidogrel (PLAVIX) 75 mg tablet Take 1 tablet by mouth once daily. atorvastatin (LIPITOR) 40 mg tablet Take 1 tablet by mouth once daily. budesonide (PULMICORT) 0.5 mg/2 mL nebulizer solution Use 2 mL via nebulizer twice daily. multivitamin with folic acid (THERA, ONE DAILY) 400 mcg Take by mouth. Cholecalciferol, Vitamin D3, 1,000 unit cap Take 1 capsule by mouth once daily. predniSONE (DELTASONE) 10 mg tablet Take 1 tablet by mouth once daily. ipratropium (ATROVENT) 0.02 % nebulizer solution Use 2.5 mL via nebulizer four times daily as needed. OVER 5-15 MINUTES FOR WHEEZING OR SHORTNESS OF BREATH No current facility-administered medications for this visit. SOCIAL HISTORY: Reviewed and updated Social History Tobacco Use Smoking status: Former Packs/day: 1.00 Years: 53.00 Additional pack years: 0.00 Total pack years: 53.00 Types: Cigarettes Start date: [birth year]/11/1961 Quit date: 10/04/2016 Years since quittin.7 Smokeless tobacco: Never Tobacco comments: 10-20 year period in 30-40s when quit. Vaping Use Vaping Use: Never used Substance Use Topics Alcohol use: Yes Comment: very seldom Drug use: No FAMILY HISTORY: Reviewed and updated FAMILY HISTORY Problem Relation Age of Onset Diabetes Mother Heart Mother None Father hx unknown Heart Brother Diabetes Brother Cancer Brother Lung, 1/2 brother. Asthma No Family History COPD No Family History Emphysema No Family History Review of Systems Constitutional: Negative. Respiratory: Positive for cough and shortness of breath. Negative for apnea, choking, chest tightness, wheezing and stridor. Cardiovascular: Negative. All other systems reviewed and negative, other than HPI. Physical Exam Vitals and nursing note reviewed. Constitutional: General: She is awake. She is not in acute distress. Appearance: Normal appearance. She is well-developed and well-groomed. She is not ill-appearing, toxic-appearing or diaphoretic. HENT: Head: Normocephalic. Right Ear: External ear normal. Left Ear: External ear normal. Nose: Nose normal. Eyes: General: Vision grossly intact. Conjunctiva/sclera: Conjunctivae normal. Pupils: Pupils are equal, round, and reactive to light. Neck: Vascular: No JVD. Trachea: Trachea normal. Cardiovascular: Rate and Rhythm: Normal rate and regular rhythm. Pulses: Normal pulses. Heart sounds: Normal heart sounds. No murmur heard. Pulmonary: Effort: Pulmonary effort is normal. No accessory muscle usage, prolonged expiration or respiratory distress. Breath sounds: Normal breath sounds. Musculoskeletal: Cervical back: Neck supple. Skin: General: Skin is warm and dry. Capillary Refill: Capillary refill takes less than 2 seconds. Neurological: General: No focal deficit present. Mental Status: She is alert and oriented to person, place, and time. Mental status is at baseline. Psychiatric: Attention and Perception: Attention and perception normal. Mood and Affect: Mood and affect normal. Speech: Speech normal. Behavior: Behavior normal. Behavior is cooperative. Thought Content: Thought content normal. Cognition and Memory: Cognition and memory normal. Judgment: Judgment normal. BP 118/50 Pulse 68 Wt 151 lb (68.5kg) SpO2 96% 1. I have reviewed the patient record including associated test results during the last hospitalization Yes 2. I have reviewed Lab test Yes 3. I have reviewed Radiology test Yes 4. I reviewed assessment/plan with the patient/family member Yes ASSESSMENT/PLAN 1. COPD with exacerbation (HCC) - ICD9: 491.21, ICD10: J44.1 (primary diagnosis) Slowly improving, still persistent, stop steroid taper (almost done) and give x4 days of a burst. Check cxr, keep doing nebulizer treatments. - XR CHEST 2V FRONTAL/LAT - PREDNISONE 20 MG TABLET 2. Hypoxia - ICD9: 799.02, ICD10: R09.02 Resolved. Portions of this note have been entered by ancillary staff. I have reviewed and when necessary edited, so that they are an adequate record of my encounter with this patient Please note that parts of this document were created using voice recognition software and therefore may contain grammatical errors. Patient verbalizes understanding of instructions from today's visit and in agreement with treatment plan. Questions answered. Agrees to call the office if questions, concerns or issues with acute symptoms not improving or if they worsen. See diagnoses and orders for additional plan(s). Allergies and medications were reviewed, list was updated, and refills given if needed. Past medical, surgical, social, and family history reviewed and updated as appropriate. Encouraged proper diet & exercise as well as compliance with taking medications. Age-appropriate health preventative measures were discussed. Return if symptoms worsen or fail to improve, for Keep next scheduled appointment.. Rosaura Suárez APRN-CORINNA documented in this encounter [facility] 06-30-2023 Note [facility] 06-30-2023 History of Present illness Narrative CDM Telephonic Outreach Provider Action/FYI CDM: CKD, COPD Called Pt, unable to leave?a message to verify symptom status and needs. Line rang busy. Contacted for: Routine Telephonic Outreach Contact made with patient: No, unable to leave message. Will reattempt call Alannah Hi RN June 30, 2023 2:22 PM CDM Telephonic Outreach Provider Action/FYI CDM: CKD, COPD Left a message to verify symptom status, instructed to contact PCP for condition changes and needs. Contacted for: Routine Telephonic Outreach Contact made with patient: No, left message. Alannah Hi RN June 28, 2023 5:08 PM documented in this encounter [facility] 06-28-2023 Note [facility] 05-23-2023 Note [facility] 05-23-2023 History of Present illness Narrative SUBJECTIVE Chanel Rousseau is a 87 year old female here today for a check up on her medical problems. Chief Complaint Patient presents with: Recheck: blood pressure HPI Chanel Rousseau is a 87 year old female. Follow up on blood pressure, leg swelling, pain. Blood pressure is much better, swelling stable/controlled. Home bp overall at goal. She had her bone density scan done, this showed osteopenia in the lumbar spine and bilateral femoral necks. She had her MRI of the spine also with pain management. Impression: Mild chronic wedge deformity L1. L2-3 grade 1 retrolisthesis with mild central bulge. L3-4 and L4-5 moderate disc bulging, L5-S1 mild disc bulging. Multilevel degenerative disc disease, central stenosis, facet arthropathy and neural foraminal encroachment as above. Her medications were reviewed today and her list is now up to date. Medications Current Outpatient Medications Medication Sig furosemide (LASIX) 40 mg tablet Take 1 tablet by mouth once daily. pramipexole (MIRAPEX) 1.5 mg tablet Take 1 tablet by mouth daily at bedtime. spironolactone (ALDACTONE) 50 mg tablet Take 1 tablet by mouth twice daily. carvedilol (COREG) 12.5 mg tablet Take 12.5 mg by mouth twice daily. ipratropium (ATROVENT) 0.02 % nebulizer solution USE 1 VIAL (2.5 ML) VIA NEBULIZER FOUR TIMES A DAY OVER 5 TO 15 MINUTES FOR WHEEZING OR SHORTNESS OF BREATH albuterol HFA (VENTOLIN HFA) 90 mcg/actuation inhaler Inhale 2 Puffs as instructed every 4 hours as needed for wheezing/shortness of breath. May take 2 puffs prior to exercise albuterol (PROVENTIL) 2.5 mg /3 mL (0.083 %) nebulizer solution Use 3 mL via nebulizer four times daily. USE 1 VIAL (3 ML) VIA NEBULIZER FOUR TIMES A DAY OVER 5 TO 15 MINUTES FOR WHEEZING AND SHORTNESS OF BREATH losartan-hydroCHLOROthiazide (HYZAAR) 100-25 mg per tablet Take 1 tablet by mouth once daily. clopidogrel (PLAVIX) 75 mg tablet Take 1 tablet by mouth once daily. atorvastatin (LIPITOR) 40 mg tablet Take 1 tablet by mouth once daily. budesonide (PULMICORT) 0.5 mg/2 mL nebulizer solution Use 2 mL via nebulizer twice daily. multivitamin with folic acid (THERA, ONE DAILY) 400 mcg Take by mouth. Cholecalciferol, Vitamin D3, 1,000 unit cap Take 1 capsule by mouth once daily. budesonide (PULMICORT) 0.5 mg/2 mL nebulizer solution Use 2 mL via nebulizer twice daily. INHALE 2 ML BY NEBULIZER OVER 5-15 MINUTES EVERY 12 HOURS. ipratropium (ATROVENT) 0.02 % nebulizer solution Use 2.5 mL via nebulizer four times daily as needed. OVER 5-15 MINUTES FOR WHEEZING OR SHORTNESS OF BREATH No current facility-administered medications for this visit. ALLERGIES Allergen Reactions Amlodipine Swelling Lower leg edema. Aspirin Unknown Lisinopril Cough Requip [Ropinirole] Other: See Comments Very anxious ACTIVE PROBLEM LIST Osteopenia of Lumbar Spine - 05/23/2023 Chronic Bilateral Thoracic Back Pain - 04/04/2023 Lumbar Pain - 04/04/2023 Pad (Peripheral Artery Disease) ([facility]) - 11/11/2021 Carotid Artery Stenosis - 01/23/2021 Tia (Transient Ischemic Attack) - 05/26/2020 Comment: history of TIA, remote Obesity, Class I, Bmi 30-34.9 - 07/30/2018 Ckd (Chronic Kidney Disease) Stage 3, Gfr 30-59 Ml/Min ([facility]) - 07/30/2018 Bifascicular Block - 10/11/2016 Herpes Zoster Without Complication - 02/28/2016 Mixed Simple and Mucopurulent Chronic Bronchitis (Hcc) - 01/10/2016 Mixed Hyperlipidemia - 01/10/2016 Essential Hypertension - 04/07/2015 Calculi, 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 Basilio @ [facility]- Cystopscopy, left retrograde pyelogram, left ureteroscopy, basked extraction of ureteral tissue Nonspecific Abnormal Finding in Stool Contents - 03/31/2012 Acute Gastritis Without Mention of Hemorrhage - 03/31/2012 Vitamin D Deficiency - 03/06/2012 Hyperlipidemia - 04/21/2011 Hypertension - 04/21/2011 Comment: 05/23/2023: Home BP Cuff Validated. Home BP: 143/56 p70 Office BP: 134/60 p69 S/P Unilateral Salpingo-Oophorectomy - 02/18/2011 S/P Jenny (Total Abdominal Hysterectomy) - 02/18/2011 Copd (Chronic Obstructive Pulmonary Disease) (Hcc) - 08/24/2010 Htn (Hypertension), Benign - 08/12/2009 Hypokalemia - 08/12/2009 Brachial Neuritis Or Radiculitis NOS - 05/24/2008 Diverticulosis of Colon (Without Mention of Hemorrhage) Comment: Diverticulosis Personal History of Colonic Polyps Comment: Colon polyps Restless Legs Syndrome (Rls) Peripheral Enthesopathies and Allied Syndromes - 05/20/2005 Osteoporosis, Unspecified - 05/20/2005 restless leg syndrome - 05/20/2005 Social History Tobacco Use Smoking status: Former Packs/day: 1.00 Years: 53.00 Additional pack years: 0.00 Total pack years: 53.00 Types: Cigarettes Start date: 08/11/1963 Quit date: 10/04/2016 Years since quittin.6 Smokeless tobacco: Never Tobacco comments: 10-20 year period in 30-40s when quit. Vaping Use Vaping Use: Never used Substance Use Topics Alcohol use: Yes Comment: very seldom Drug use: No Review of Systems Constitutional: Negative. Respiratory: Negative. Cardiovascular: Negative for chest pain and palpitations. OBJECTIVE BP 143/56[Home BP monitor[ Pulse 70 Wt 156 lb (70.8kg) SpO2 97% Physical Exam Vitals and nursing note reviewed. Constitutional: General: She is awake. She is not in acute distress. Appearance: Normal appearance. She is well-developed and well-groomed. She is not ill-appearing, toxic-appearing or diaphoretic. HENT: Head: Normocephalic. Right Ear: External ear normal. Left Ear: External ear normal. Nose: Nose normal. Eyes: General: Vision grossly intact. Conjunctiva/sclera: Conjunctivae normal. Pupils: Pupils are equal, round, and reactive to light. Neck: Vascular: No JVD. Trachea: Trachea normal. Cardiovascular: Rate and Rhythm: Normal rate and regular rhythm. Pulses: Normal pulses. Heart sounds: Normal heart sounds. No murmur heard. Pulmonary: Effort: Pulmonary effort is normal. No accessory muscle usage, prolonged expiration or respiratory distress. Breath sounds: Normal breath sounds. Musculoskeletal: Cervical back: Neck supple. Skin: General: Skin is warm and dry. Capillary Refill: Capillary refill takes less than 2 seconds. Neurological: General: No focal deficit present. Mental Status: She is alert and oriented to person, place, and time. Mental status is at baseline. Psychiatric: Attention and Perception: Attention and perception normal. Mood and Affect: Mood and affect normal. Speech: Speech normal. Behavior: Behavior normal. Behavior is cooperative. Thought Content: Thought content normal. Cognition and Memory: Cognition and memory normal. Judgment: Judgment normal. ASSESSMENT/PLAN: 1. Primary hypertension - ICD9: 401.9, ICD10: I10 (primary diagnosis) - Controlled - Continue current medications - Recommend home blood pressure monitoring, to bring results to next visit - Encouraged sodium restriction, DASH or Mediterranean diet - Recommend regular aerobic exercise 2. Stasis edema of both lower extremities - ICD9: 459.30, ICD10: I87.303 Stable. 3. Osteopenia of lumbar spine - ICD9: 733.90, ICD10: M85.88 - Reviewed the need for Calcium and Vitamin D supplements and weight bearing exercise as tolerated 4. Lumbar pain - ICD9: 724.2, ICD10: M54.50 Following with pain management. Portions of this note have been entered by ancillary staff. I have reviewed and when necessary edited, so that they are an adequate record of my encounter with this patient Please note that parts of this document were created using voice recognition software and therefore may contain grammatical errors. Patient verbalizes understanding of instructions from today's visit and in agreement with treatment plan. Questions answered. Agrees to call the office if questions, concerns of issues with acute symptoms not improving or if they worsen. See diagnoses and orders for additional plan(s). Allergies and medications were reviewed, list was updated, and refills given if needed. Past medical, surgical, social, and family history reviewed and updated as appropriate. Encouraged proper diet & exercise as well as compliance with taking medications. Age-appropriate health preventative measures were discussed. Return in about 3 months (around 08/23/2023) for Follow up on chronic conditions and medications.. Rosaura Suárez APRN-CORINNA documented in this encounter [facility] 05-18-2023 Note [facility] 05-18-2023 History of Present illness Narrative CDM Telephonic Outreach Provider Action/FYI CDM: CKD, COPD Left a message to verify symptom status, instructed to call PCP with any changes in condition?or needs CKD Jamir education sent Contacted for: Routine Telephonic Outreach Contact made with patient: No, left message. Alannah Hi RN May 18, 2023 4:57 PM CDM Telephonic Outreach Provider Action/FYI CDM: CKD, COPD Left a message to verify symptom status, instructed to call PCP with any changes in condition?or needs Contacted for: Routine Telephonic Outreach Contact made with patient: No, left message. Alannah Hi RN May 17, 2023 2:25 PM documented in this encounter [facility] 05-17-2023 Note [facility] 05-09-2023 Note [facility] 05-09-2023 History of Present illness Narrative Radiology Service Progress Note PATIENT NAME: Chanel Rousseau DATE OF SERVICE: May 09, 2023 TIME: 10:57 AM PATIENT IDENTITY VERIFICATION COMPLETED USING TWO (2) IDENTIFIERS: Name and Date of confirmed by patient verbally. FALL SCREENING: Has the patient had 2 falls in the last year or 1 fall with injury or currently using an Ambulatory Assistive Device (Walker, Cane, Wheelchair, Crutches, etc.)? No PATIENT GENDER DATA: Female. status: : No status: NO. PATIENT RELEVANT IMPLANT DATA REVIEWED: Not Applicable RADIOLOGY DEPARTMENT: Bone Density PERIPHERAL IV DATA: Not applicable SIGNED BY: RT Jitendra(R) May 09, 2023 10:57 AM documented in this encounter [facility] 05-09-2023 Miscellaneous Notes Appt 05/23 documented in this encounter [facility] 05-06-2023 Miscellaneous Notes Got it, thanks! Spoke with Dr. Pemberton's office and was told that he is in network with patient's insurance and that the MRI has been approved to complete at [facility]. Nurse had stated that had Dr. Pemberton not been in network with patient's insurance then the MRI would have not gotten approve to be completed at [facility]. PATIENT NOTIFIED OF SAME. Can we please call [facility] management [facility] and see if they want to send MRI orders for patient to [facility] to have this done or do they want us to order MRIs for back pain? If we are ordering the MRIs were they discussing just lumbar MRI or lumbar and thoracic? Rosaura Suárez APRN.CORINNA documented in this encounter [facility] 05-06-2023 Note [facility] 05-06-2023 Instructions Rosaura Suárez APRN.CNP - 05/06/2023 9:15 AM EDT [facility] Start back on Lasix (furosemide) as 40 mg once a day. Continue to stay off of the hydralazine. BONE MINERAL DENSITY PATIENT INSTRUCTIONS === Bone mineral density testing measures the amount of calcium in certain parts of your bones. This information determines how strong your bones are. The test is used to detect osteoporosis, a disease in which the bone's mineral content and density are low, increasing a person's risk of fractures. The lumbar spine (lower back) and the hip are the skeletal sites usually examined. For the test, remember that: 1. You cannot take this test if you are . 2. Eat a normal diet on the day of the test. 3. Take your medications as you normally would. 4. DO NOT take calcium supplements (such as Tums) for 24 hours before the test. 5. On the day of the test, leave valuables (jewelry or credit cards) at home. 6. The test should be performed prior to oral, rectal or IV contrast studies, or at least 7 days after any of these studies. For the test, you may be asked to wear a hospital gown. You will lie on your back, on a padded table, in a comfortable position. Generally, you can resume your usual activities immediately. documented in this encounter [facility] 05-06-2023 History of Present illness Narrative SUBJECTIVE Chanel Rousseau is a 87 year old female here today for a check up on her medical problems. Chief Complaint Patient presents with: Recheck HPI Chanel Rousseau is a 87 year old female. Here today for follow up on blood pressure. Had been hypotensive, home bp now returning to normal. Some slight edema in ankles. Went to see pain management. Not in network with her insurance. Needs an MRI of her back. Was planning to do an injection in her back. Trying to decide if she wants to follow with another pain management office. Recommended bone density scanning. DEXA last done 2019. Showed Osteopenia. Her medications were reviewed today and her list is now up to date. Medications Current Outpatient Medications Medication Sig pramipexole (MIRAPEX) 1.5 mg tablet Take 1 tablet by mouth daily at bedtime. spironolactone (ALDACTONE) 50 mg tablet Take 1 tablet by mouth twice daily. carvedilol (COREG) 12.5 mg tablet Take 12.5 mg by mouth twice daily. ipratropium (ATROVENT) 0.02 % nebulizer solution USE 1 VIAL (2.5 ML) VIA NEBULIZER FOUR TIMES A DAY OVER 5 TO 15 MINUTES FOR WHEEZING OR SHORTNESS OF BREATH albuterol HFA (VENTOLIN HFA) 90 mcg/actuation inhaler Inhale 2 Puffs as instructed every 4 hours as needed for wheezing/shortness of breath. May take 2 puffs prior to exercise fluticasone (FLONASE) 50 mcg/actuation nasal spray Use 2 Sprays in each nostril once daily. Rinse mouth after use. albuterol (PROVENTIL) 2.5 mg /3 mL (0.083 %) nebulizer solution Use 3 mL via nebulizer four times daily. USE 1 VIAL (3 ML) VIA NEBULIZER FOUR TIMES A DAY OVER 5 TO 15 MINUTES FOR WHEEZING AND SHORTNESS OF BREATH losartan-hydroCHLOROthiazide (HYZAAR) 100-25 mg per tablet Take 1 tablet by mouth once daily. traZODone (DESYREL) 100 mg tablet Take 0.5 tablets by mouth daily at bedtime. for sleep clopidogrel (PLAVIX) 75 mg tablet Take 1 tablet by mouth once daily. atorvastatin (LIPITOR) 40 mg tablet Take 1 tablet by mouth once daily. budesonide (PULMICORT) 0.5 mg/2 mL nebulizer solution Use 2 mL via nebulizer twice daily. multivitamin with folic acid (THERA, ONE DAILY) 400 mcg Take by mouth. Cholecalciferol, Vitamin D3, 1,000 unit cap Take 1 capsule by mouth once daily. furosemide (LASIX) 40 mg tablet Take 1 tablet by mouth once daily. budesonide (PULMICORT) 0.5 mg/2 mL nebulizer solution Use 2 mL via nebulizer twice daily. INHALE 2 ML BY NEBULIZER OVER 5-15 MINUTES EVERY 12 HOURS. ipratropium (ATROVENT) 0.02 % nebulizer solution Use 2.5 mL via nebulizer four times daily as needed. OVER 5-15 MINUTES FOR WHEEZING OR SHORTNESS OF BREATH No current facility-administered medications for this visit. ALLERGIES Allergen Reactions Amlodipine Swelling Lower leg edema. Aspirin Unknown Lisinopril Cough Requip [Ropinirole] Other: See Comments Very anxious ACTIVE PROBLEM LIST Chronic Bilateral Thoracic Back Pain - 04/04/2023 Lumbar Pain - 04/04/2023 Pad (Peripheral Artery Disease) ([facility]) - 11/11/2021 Carotid Artery Stenosis - 01/23/2021 Tia (Transient Ischemic Attack) - 05/26/2020 Comment: history of TIA, remote Obesity, Class I, Bmi 30-34.9 - 07/30/2018 Ckd (Chronic Kidney Disease) Stage 3, Gfr 30-59 Ml/Min ([facility]) - 07/30/2018 Bifascicular Block - 10/11/2016 Herpes Zoster Without Complication - 02/28/2016 Mixed Simple and Mucopurulent Chronic Bronchitis ([facility]) - 01/10/2016 Mixed Hyperlipidemia - 01/10/2016 Essential Hypertension - 04/07/2015 Calculi, 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 Basilio @ [facility]- Cystopscopy, left retrograde pyelogram, left ureteroscopy, basked extraction of ureteral tissue Nonspecific Abnormal Finding in Stool Contents - 03/31/2012 Acute Gastritis Without Mention of Hemorrhage - 03/31/2012 Vitamin D Deficiency - 03/06/2012 Hyperlipidemia - 04/21/2011 Hypertension - 04/21/2011 S/P Unilateral Salpingo-Oophorectomy - 02/18/2011 S/P Jenny (Total Abdominal Hysterectomy) - 02/18/2011 Copd (Chronic Obstructive Pulmonary Disease) ([facility]) - 08/24/2010 Htn (Hypertension), Benign - 08/12/2009 Hypokalemia - 08/12/2009 Brachial Neuritis Or Radiculitis NOS - 05/24/2008 Diverticulosis of Colon (Without Mention of Hemorrhage) Comment: Diverticulosis Personal History of Colonic Polyps Comment: Colon polyps Restless Legs Syndrome (Rls) Peripheral Enthesopathies and Allied Syndromes - 05/20/2005 Osteoporosis, Unspecified - 05/20/2005 restless leg syndrome - 05/20/2005 Social History Tobacco Use Smoking status: Former Packs/day: 1.00 Years: 53.00 Additional pack years: 0.00 Total pack years: 53.00 Types: Cigarettes Start date: 08/11/1963 Quit date: 10/04/2016 Years since quittin.5 Smokeless tobacco: Never Tobacco comments: 10-20 year period in 30-40s when quit. Vaping Use Vaping Use: Never used Substance Use Topics Alcohol use: Yes Comment: very seldom Drug use: No Review of Systems Respiratory: Negative. Cardiovascular: Negative for chest pain and palpitations. Musculoskeletal: Positive for back pain. OBJECTIVE BP 164/62 Pulse 68 Wt 158 lb (71.7kg) SpO2 97% Physical Exam Vitals and nursing note reviewed. Constitutional: General: She is awake. She is not in acute distress. Appearance: Normal appearance. She is well-developed and well-groomed. She is not ill-appearing, toxic-appearing or diaphoretic. HENT: Head: Normocephalic. Right Ear: External ear normal. Left Ear: External ear normal. Nose: Nose normal. Eyes: General: Vision grossly intact. Conjunctiva/sclera: Conjunctivae normal. Pupils: Pupils are equal, round, and reactive to light. Neck: Vascular: No JVD. Trachea: Trachea normal. Cardiovascular: Rate and Rhythm: Normal rate and regular rhythm. Pulses: Normal pulses. Heart sounds: Normal heart sounds. No murmur heard. Pulmonary: Effort: Pulmonary effort is normal. No accessory muscle usage, prolonged expiration or respiratory distress. Breath sounds: Normal breath sounds. Musculoskeletal: Cervical back: Neck supple. Right lower leg: Edema (slight non-pitting) present. Left lower leg: Edema (slight, non-pitting) present. Skin: General: Skin is warm and dry. Capillary Refill: Capillary refill takes less than 2 seconds. Neurological: General: No focal deficit present. Mental Status: She is alert and oriented to person, place, and time. Mental status is at baseline. Psychiatric: Attention and Perception: Attention and perception normal. Mood and Affect: Mood and affect normal. Speech: Speech normal. Behavior: Behavior normal. Behavior is cooperative. Thought Content: Thought content normal. Cognition and Memory: Cognition and memory normal. Judgment: Judgment normal. ASSESSMENT/PLAN: 1. Chronic bilateral thoracic back pain - ICD9: 724.1, 338.29, ICD10: M54.6, G89.29 (primary diagnosis) She would like a referral for [facility], will see when she is able to schedule to see them. In the mean time we can check with [facility] and see if they want to send MRI orders to [facility] or have us order them. - CONSULT TO PAIN MGT 2. Primary hypertension - ICD9: 401.9, ICD10: I10 - Worsening control, no longer hypotensive - Start furosemide back but only at 40 mg daily - Recommend home blood pressure monitoring, to bring results to next visit - Encouraged sodium restriction, DASH or Mediterranean diet - Recommend regular aerobic exercise - FUROSEMIDE 40 MG TABLET 3. Osteopenia of lumbar spine - ICD9: 733.90, ICD10: M85.88 - DXA-AXIAL SKELETON 4. Encounter for screening for osteoporosis - ICD9: V82.81, ICD10: Z13.820 5. Asymptomatic postmenopausal status - ICD9: V49.81, ICD10: Z78.0 Portions of this note have been entered by ancillary staff. I have reviewed and when necessary edited, so that they are an adequate record of my encounter with this patient Please note that parts of this document were created using voice recognition software and therefore may contain grammatical errors. Patient verbalizes understanding of instructions from today's visit and in agreement with treatment plan. Questions answered. Agrees to call the office if questions, concerns of issues with acute symptoms not improving or if they worsen. See diagnoses and orders for additional plan(s). Allergies and medications were reviewed, list was updated, and refills given if needed. Past medical, surgical, social, and family history reviewed and updated as appropriate. Encouraged proper diet & exercise as well as compliance with taking medications. Age-appropriate health preventative measures were discussed. Return if symptoms worsen or fail to improve, for Keep next scheduled appointment.. Rosaura Suárez APRN-CORINNA documented in this encounter [facility] 05-02-2023 Miscellaneous Notes Pt called and is notified of providers message and instructions. Pt voices understanding. Betty Duckworth RN She should stay off of the hydralazine until her follow up later this week, keep monitoring blood pressure and record them and bring with her to her follow up. Thanks! Patient calls and wanted to let provider know that she did not have any increased shortness of breath or swelling after being off hydralazine this weekend. Patient reports the following blood pressures: 04/30: 119/49 05/01: 124/50 05/02: 141/61 Please review and advise, Janice Jessica RN documented in this encounter [facility] 04-29-2023 Miscellaneous Notes Pt returned call and given provider's message below with verbalized understanding. Patient agreeable. LEFT MESSAGE FOR PATIENT TO CALL OFFICE. She should stop her hydralazine all together for the weekend and call with an update on blood pressure on Tuesday. Monitor for any signs of fluid increasing such as wet cough, increased swelling, increased shortness of breath ect and if noticing these she should call the nurse professional bass fisherman for guidance. Spoke with patient and no concerns of increased fluids, no swelling or weight gain. However still having issues with low BP. Patient notified of chest xray results and possible changes. Please advise. Please call patient and get an update on how she is feeling, any more changes in her swelling or any weight gain, concerns of increased fluid? How is bp doing? Chest xray shows the possibility of some extra fluid on the right side of the lungs so we may need to go back to using the lasix and stop another blood pressure medication instead. documented in this encounter [facility] 04-25-2023 Note [facility] 04-25-2023 Note [facility] 04-22-2023 Note [facility] 04-22-2023 History of Present illness Narrative CDM Telephonic Outreach Provider Action/FYI CDM: CKD, COPD Chart reviewed, Pt was seen in outside ED for LLQ pain, Lumbar sprain of back Left a message to verify symptom status, instructed to call PCP with any changes in condition?or needs Contacted for: Routine Telephonic Outreach Contact made with patient: No, left message. Alannah Hi RN April 25, 2023 5:24 PM CDM Telephonic Outreach Provider Action/FYI CDM: CKD, COPD Chart reviewed, Pt was seen in outside ED for LLQ pain, Lumbar sprain of back Left a message to verify symptom status, instructed to call PCP with any changes in condition?or needs Contacted for: Routine Telephonic Outreach Contact made with patient: No, left message. Alannah Hi RN April 20, 2023 4:13 PM CDM Telephonic Outreach Provider Action/FYI CDM: CKD, COPD Chart reviewed Pt was seen in outside ED for LLQ pain, Lumbar sprain of back Left a message to verify symptom status, instructed to call PCP with any changes in condition?or needs. Contacted for: Routine Telephonic Outreach Contact made with patient: No, left message. Alannah Hi RN April 19, 2023 10:50 AM documented in this encounter [facility] 04-20-2023 Note [facility] 04-19-2023 Note [facility] 04-19-2023 Note [facility] 04-18-2023 Miscellaneous Notes Report received from [facility]. Will forward to Rosaura/Svitlana. Geri Marte MA Noted, agree, will discuss at appt tomorrow. Pt calling in as she went to the ER on Tuesday for continued/worsening back and leg pain. Per pt, the ER did not do any testing and they gave her Hydrocodone/Acetaminophen 5/325 mg for pain which helps some. She is to take every 6 hrs prn. She has 4 tablets left of that. Pt has not used it since 7 pm last evening. States she has been taking Tylenol too. Pt encouraged to not take Tylenol while using the Hydrocodone since that has Tylenol in it. Saw Rosaura Suárez A[employer]ODYNAMICS ENGINEER on 03/23/23 and was prescribed Robaxin. Pt states that wasn't helping and she has been out since last week. Then states she called in last week and Rosaura prescribed Gabapentin BID. Pt states that isn't helping either. When asked if she is still taking the Gabapentin, pt states she hasn't taken any of that since before she went to the ER because she didn't think she was allowed to take that along with the Hydrocodone. Pt told that she can still take the Gabapentin as well. Pt given appt for tomorrow morning with Rosaura Suárez. She is instructed if she is taking the Hydrocodone, that she should not drive. She will arrange for someone to bring her. Pt states she cancelled her physical therapy appt for today because she feels it agitates her back and makes it worse. At this time, pt denies any numbness or tingling or loss of bowel or bladder control. When first asked pt her pain level, she said it was 10/10 but pt talking with nurse normal and said she is tolerating the pain okay right now. After explanation of a pain level of 10, pt states it is probably a 7/10. Pt encouraged to take her Gabapentin, use her Hydrocodone as needed and have her appt tomorrow with Rosaura. Instructed if her legs become numb, severe tingling that won't let up or loss of bowel or bladder control, then she needs to call 911. Pt verbalizes understanding. documented in this encounter [facility] 04-15-2023 Note [facility] 04-12-2023 Note [facility] 04-08-2023 Note [facility] 04-08-2023 History of Present illness Narrative Episode Visit Count: 2 Therapist That Will Accept/Oversee The Plan Of Care: Artie Duval, PT. Start of Care Date: 04/04/23 Onset Date: 02/01/23 Plan of Care Certification Date: 04/04/23 Next Certification Due Date: 05/09/23 Patient Identified by Name and Date of : Yes REHABILITATION AND SPORTS THERAPY PHYSICAL THERAPY TREATMENT NOTE ASSESSMENT: Chanel Rousseau tolerated the session with decreased symptoms, expected muscle soreness, and no issues. She demonstrated complete symptom reduction with seated nerve flossing tensioner's. The patient will continue to benefit from ongoing skilled physical therapy to progress toward set goals. PLAN FOR NEXT VISIT: Flexion directional preference ther-ex progressions as able. SUBJECTIVE: Patient reports R-sided low back pain this date; states it feels like consistent pins & needles; states compliance with HEP but having no relief during or after completion; only relief comes with lying down. Pain: Pain Pain Level: 8 Pain Location: Low Back/Lumbar Spine - Right Description: Tingling, Numbness Frequency: Continuous Post Treatment Pain Post Treatment Pain Level: 0 Post Treatment Pain Location: Low Back/Lumbar Spine - Right Post Treatment Symptoms: Completely resolved sxs. OBJECTIVE MEASURES WITH LEVEL OF FUNCTION: Tenderness in R Lower Paraspinals and Upper Gluteals. TREATMENT: Therapeutic Exercise: 1: *Seated Sciatic Flossing Tensioner: 2x10 RLE, 1x10 LLE. (Completed resolved sxs following 1st set of 10; went from an 8/10 to a 0/10.) 2: SKC: 3x30 ea. 3: DKC w/ towel: 3x30 4: Seated Flexion Rollouts 85cm physioball: 3x10. Skilled Intervention: Patient was educated in proper exercise technique and purpose for exercises. Reviewed and educated patient on additions/changes for home exercise program as above (*). Skilled judgment was provided in selection of appropriate interventions. Provided written instruction for home exercise program to facilitate proper performance and compliance. Correct performance of therapeutic exercises was facilitated with verbal, visual, and tactile cuing. Manual Therapy: 1: STM with lacrosse ball to B thoracic & Lumbar paraspinals: Push to patient tolerance. 2: Manual Long Amery Hip Distraction to each leg: Pull to patient tolerance. Skilled Intervention: Manual skills to improve joint mobility, ROM, and decrease pain. Utilized anatomy knowledge of the therapist, and assessment of patient's response to intervention. Billing Therapeutic Exercise Treatment Minutes: 30 Manual TherapyTreatment Minutes: 10 Skilled Treatment Time Minutes (timed and untimed codes): 40 Total Session Time (minutes): 40 Session Start Time : 1430 Session Stop Time : 1510 Artie Duval PT documented in this encounter [facility] 04-04-2023 Note [facility] 04-04-2023 History of Present illness Narrative Episode Visit Count: 1 Therapist That Will Accept/Oversee The Plan Of Care: Artie Duval PT. Start of Care Date: 04/04/23 Onset Date: 02/01/23 Plan of Care Certification Date: 04/04/23 Next Certification Due Date: 05/09/23 Patient Identified by Name and Date of : Yes REHABILITATION AND SPORTS THERAPY PHYSICAL THERAPY EVALUATION PLAN OF CARE: Assessment: Chanel Rousseau presents with chief complaint of B low back pain with associated paresthesias wrapping around to the anterior thigh, as well as mid-back pain interferes with standing, walking, walking in the house, walking in the community, bending, physical activities, recreational activities . She presents with impairments in ADL's/IADLs, flexibility, independence in exercise, overall function, functional mobility, patient reported outcome measures, range of motion, strength, symptom management, and tissue tenderness. PROMIS (Patient-Reported Outcomes Measurement Information System) scores were reviewed and physical function domain identified as a rehabilitation concern. Prognosis for therapy is Good due to: current objective clinical presentation, acuteness of condition, within-session changes, Prognosis may be limited due to multiple co- morbidities . She will benefit from skilled therapy services to meet the goals established for this plan of care as noted below. Classification Low Back Pain Subgroup Classification: Specific exercise subgroup: recommended visits 8. Specific Exercies Subgroup Classification based on: directional preference Goals for Episode of Care: created on 04/04/23 through 05/16/23 [place] in home exercise program. Patient will decrease pain rating by 2 points to meet minimal clinical important difference for numeric pain rating scale. Patient will demonstrate increase in B LE strength to 5/5 during manual muscle testing in order to improve function for basic self-care tasks, home management tasks, leisure / recreation skills, light functional tasks, and prior functional tasks. Restore pain-free lumbar ROM to grossly to allow for improvement in functional mobility. Stand / Walk without report of pain/symptoms in the low back/down the legs in 4-6 weeks. Patient. Will be able to complete prolonged standing without limitations for pain-free home management activities such as cooking and cleaning. Patient Goals: Relieve pain; be able to tolerate standing and walking. Planned Interventions, Frequency, and Duration: Current Frequency: 2x/week Duration: 4 weeks Total Number of Visits Planned: 8 Planned Treatment Interventions: Therapeutic exercise (70322), Neuromuscular re-education (92146), Manual therapy (39420), Therapeutic activities (01860), Self-jail management (94883), Patient/Family/Caregiver Education, Body Mechanics Training PLAN FOR NEXT VISIT: Assess current sxs, HEP compliance; continue with flexion directional preference ther-ex. Patient demonstrates good understanding of plan of care and treatment. The above goals and plan of care were discussed and agreed upon by patient/family. SUBJECTIVE: Patient reports worsening mid & low back pain that began 2 months ago; patient reports pins & needles feeling across the low back that wraps around anteriorly and stops at the distal thighs. Typically affects the L side worse than the R, however it is affecting the R side this morning. Patient reports standing and walking are the worst for her. Has tried previous treatment and just finished steriod & still on muscle relaxer, however neither seem to help. Patient reports history of PAD and only able to tolerate walking 10 minutes before she needs to sit d/t calf cramping. Radiographs show mild-moderate degeneration/arthritis changes. Patient Goals: Relieve pain; be able to tolerate standing and walking. Functional Limitations: standing, walking, walking in the house, walking in the community, bending, physical activities, recreational activities Prior Level of Function: Independent without limitations Relevant History Past Relevant Medical Conditions: COPD, Hypertension (PAD, CKD.) Employment: Retired Recreation / Current Exercise: None Currently. Intake Information: Prescription present Previous Treatment: NSAIDs , Chiropractor , Heat , Ice , Steroids , Muscle relaxer Falls Interview: No positive findings with falls interview Red Flags Vertebral Fracture Red Flags: Female, Age >70 Vertebral Fracture Clinical Reasoning: Proceed with caution due to the above (1-2) risk factors Abdominal Aortic Aneurysm Red Flags: Age >60, History of PVD, CAD Abdominal Aortic Aneurysm Clinical Reasoning: Proceed with caution Cancer Red Flags: Age >50 or <20 Cancer Clinical Reasoning: Proceed with caution Infection Clinical Reasoning: No identified risk factors. Cauda Equina Syndrome Clinical Reasoning: No identified risk factors. Other pertinent symptoms: (Osteopenia) Red Flags - Cervical Cancer Red Flags: Age >50 or <20 Cancer Clinical Reasoning: Proceed with caution Infection Clinical Reasoning: No identified risk factors. Spine History Symptoms Location at Onset: Back, Thigh Symptoms Since Onset: Worsening Pain is Worse Always: Standing, Walking Pain is Better Always: Lying Previous Episodes: No Sleep Affected by Pain: Not affected by pain Pain: Pain Pain Level: 10 Pain Location: Low Back/Lumbar Spine - Right Description: Numbness, Tingling Frequency: Continuous Post Treatment Pain Post Treatment Pain Level: 4 Post Treatment Pain Location: Low Back/Lumbar Spine - Right, Low Back/Lumbar Spine - Left Post Treatment Symptoms: Better following flexion based exercises and manual treatment. PROMIS Scales Higher is Better 04/01/2023 Phys Func - Score 38 (moderate dysfunction) Phys Func - Percentile 12 % Self-Eff Symptom - Score 41 (Average) Self-Eff Symptom - Percentile 18 % T-scores: mean of general population = 50. 5 points is clinically meaningfully difference Percentiles provide an indication of how the patient's score ranks in relation to the general population. Higher percentile rankings indicate better function/quality of life. 50th percentile is the average of the general population and indicates half of respondents had a worse score. OBJECTIVE MEASURES WITH LEVEL OF FUNCTION: Spine Observations R Lumbar Spine Palpation Tenderness: Paraspinals, Quadratus Lumborum L Lumbar Spine Palpation Tenderness: Paraspinals, Quadratus Lumborum R Thoracic Spine Palpation Tenderness: Paraspinals L Thoracic Spine Palpation Tenderness: Paraspinals Sensation - Lumbar Sensation: Grossly Intact Lumbar Spine AROM Lumbar Flexion: Minimal limitation Lumbar Extension: Minimal limitation Lumbar R Side-Bend: Minimal limitation, Increased pain Lumbar L Side-Bend: Minimal limitation, Increased pain Lumbar R Rotation: Minimal limitation Lumbar L Rotation: Minimal limitation LE Strength R LE Strength: Grossly 4+/5... except below. L LE Strength: Grossly 4+/5... except below. R Hip Flexion (L2): 4/5 R Hip ABduction: 4/5 L Hip Flexion (L2): 4/5 L Hip ABduction: 4/5 Special Tests - Hip and Spine Hip and Spine Special Tests: SLR Test, Slump Test SLR Test: Right Positive, Left Positive Slump Test: Right Positive, Left Positive Education: Education Learning/educational needs: Health promotion, Safety, Home exercise program, Plan of Care, Posture, Body Mechanics TREATMENT: PT Treatment Interventions: Self-Jail Management Evaluation Therapeutic Exercise: 1: *SKC: 2x30 ea. 2: *DKC: 2x30 3: *LTR: 1x12, 2-[address] 4: *Education on Skilled Intervention: Patient was educated in proper exercise technique and purpose for exercises. Reviewed and educated patient on additions/changes for home exercise program as above (*). Skilled judgment was provided in selection of appropriate interventions. Provided written instruction for home exercise program to facilitate proper performance and compliance. Correct performance of therapeutic exercises was facilitated with verbal, visual, and tactile cuing. Manual Therapy: 1: STM with lacrosse ball to B thoracic & Lumbar paraspinals: Push to patient tolerance. 2: Manual Long Amery Hip Distraction to each leg: Pull to patient tolerance. (Pt reports this manual technique felt good.) Skilled Intervention: Manual skills to improve joint mobility, ROM, and decrease pain. Utilized anatomy knowledge of the therapist, and assessment of patient's response to intervention. Self-Jail Management: 1: *Discussion and education on low back anatomy related to current condition, pain&sxs, and deficits the patient is currently having. Education on her directional preference. She was advised to avoid any exercise/activity that increases her radicular sxs. 2: *Education on POC, HEP/paramters, and the role of PT in assisting her with her current impairments. Pt. agreed to POC. Skilled Intervention: Skilled judgment in the selection of proper modification for activity of daily living/home management based on clinical presentation, deficits, and needs. Reviewed patient specific diagnosis in relation to activities of daily living/home management. Activity progression based on professional judgement. Billing * Evaluation Low Complexity: 1 Unit Therapeutic Exercise Treatment Minutes: 8 Manual TherapyTreatment Minutes: 15 Self-Care/Home Management Treatment Minutes: 5 Skilled Treatment Time Minutes (timed and untimed codes): 43 Total Session Time (minutes): 43 Session Start Time : 927 Session Stop Time : 1010 Artie Duval PT documented in this encounter [facility] 04-01-2023 Miscellaneous Notes RX pended. Patient phones requesting refills as follows: Requested Prescriptions Pending Prescriptions Disp Refills budesonide (PULMICORT) 0.5 mg/2 mL nebulizer solution 120 mL 2 Sig: Use 2 mL via nebulizer twice daily. INHALE 2 ML BY NEBULIZER OVER 5-15 MINUTES EVERY 12 HOURS. Please review and advise. Angélica Franco LPN Patient called in stating she tried to refill her budesonide and [facility] is telling her that it is on back order until the end of March. She is asking if a prescription can be sent to [facility] Rm? documented in this encounter [facility] 03-31-2023 Note [facility] 03-30-2023 Note [facility] 03-23-2023 Note [facility] 03-23-2023 Note [facility] 03-23-2023 History of Present illness Narrative SUBJECTIVE Chanel Rousseau is a 87 year old female here today for a check up on her medical problems. Chief Complaint Patient presents with: F/U 6 months Immunizations: Flu vaccination HPI Chanel Rousseau is a 87 year old female established patient. Presents for 6 month follow up. Currently most bothersome for her is middle and lower back pain, chiropractor not helping. Pain is constant. No prior injury. Sciatic pain down both legs. Tingling too at times. Tylenol and advil and heat and ice not helping. Chiropractor gave exercises. She states that swelling is controlled, wondering about decreasing diuretics. Denies any issues with chest pain, chest tightness or shortness of breath. Her medications were reviewed today and her list is now up to date. Medications Current Outpatient Medications Medication Sig spironolactone (ALDACTONE) 50 mg tablet Take 1 tablet by mouth twice daily. carvedilol (COREG) 12.5 mg tablet Take 12.5 mg by mouth twice daily. ipratropium (ATROVENT) 0.02 % nebulizer solution USE 1 VIAL (2.5 ML) VIA NEBULIZER FOUR TIMES A DAY OVER 5 TO 15 MINUTES FOR WHEEZING OR SHORTNESS OF BREATH albuterol HFA (VENTOLIN HFA) 90 mcg/actuation inhaler Inhale 2 Puffs as instructed every 4 hours as needed for wheezing/shortness of breath. May take 2 puffs prior to exercise fluticasone (FLONASE) 50 mcg/actuation nasal spray Use 2 Sprays in each nostril once daily. Rinse mouth after use. albuterol (PROVENTIL) 2.5 mg /3 mL (0.083 %) nebulizer solution Use 3 mL via nebulizer four times daily. USE 1 VIAL (3 ML) VIA NEBULIZER FOUR TIMES A DAY OVER 5 TO 15 MINUTES FOR WHEEZING AND SHORTNESS OF BREATH furosemide (LASIX) 40 mg tablet Take 1 tablet by mouth twice daily. As directed losartan-hydroCHLOROthiazide (HYZAAR) 100-25 mg per tablet Take 1 tablet by mouth once daily. traZODone (DESYREL) 100 mg tablet Take 0.5 tablets by mouth daily at bedtime. for sleep clopidogrel (PLAVIX) 75 mg tablet Take 1 tablet by mouth once daily. atorvastatin (LIPITOR) 40 mg tablet Take 1 tablet by mouth once daily. budesonide (PULMICORT) 0.5 mg/2 mL nebulizer solution Use 2 mL via nebulizer twice daily. pramipexole (MIRAPEX) 1 mg tablet Take 1 tablet by mouth daily at bedtime. hydrALAZINE (APRESOLINE) 25 mg tablet Take 25 mg by mouth three times daily. multivitamin with folic acid (THERA, ONE DAILY) 400 mcg Take by mouth. Cholecalciferol, Vitamin D3, 1,000 unit cap Take 1 capsule by mouth once daily. predniSONE (DELTASONE) 10 mg tablet Take 2 tabs po BID for 2 days then 1 tab po BID for 2 days then 1/2 tab po BID for 2 days then 1/2 tab daily for 2 days then stop. TAKE WITH FOOD. DO NOT TAKE ADVIL OR OTHER SAME MEDS WHILE ON THIS methocarbamol (ROBAXIN) 500 mg tablet Take 1 tablet by mouth three times daily. metOLazone (ZAROXOLYN) 2.5 mg tablet Take 1 tablet by mouth three times a week. Prior to Lasix as discussed. HOLD PILL STARTING 03/23, start back twice weekly if swelling comes back. (Patient not taking: Reported on 03/23/2023) budesonide (PULMICORT) 0.5 mg/2 mL nebulizer solution Use 2 mL via nebulizer twice daily. INHALE 2 ML BY NEBULIZER OVER 5-15 MINUTES EVERY 12 HOURS. ipratropium (ATROVENT) 0.02 % nebulizer solution Use 2.5 mL via nebulizer four times daily as needed. OVER 5-15 MINUTES FOR WHEEZING OR SHORTNESS OF BREATH No current facility-administered medications for this visit. ALLERGIES Allergen Reactions Amlodipine Swelling Lower leg edema. Aspirin Unknown Lisinopril Cough Requip [Ropinirole] Other: See Comments Very anxious ACTIVE PROBLEM LIST Pad (Peripheral Artery Disease) ([facility]) - 11/11/2021 Carotid Artery Stenosis - 01/23/2021 Tia (Transient Ischemic Attack) - 05/26/2020 Comment: history of TIA, remote Obesity, Class I, Bmi 30-34.9 - 07/30/2018 Ckd (Chronic Kidney Disease) Stage 3, Gfr 30-59 Ml/Min ([facility]) - 07/30/2018 Bifascicular Block - 10/11/2016 Herpes Zoster Without Complication - 02/28/2016 Mixed Simple and Mucopurulent Chronic Bronchitis (Hcc) - 01/10/2016 Mixed Hyperlipidemia - 01/10/2016 Essential Hypertension - 04/07/2015 Calculi, 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 Basilio @ [facility]- Cystopscopy, left retrograde pyelogram, left ureteroscopy, basked extraction of ureteral tissue Nonspecific Abnormal Finding in Stool Contents - 03/31/2012 Acute Gastritis Without Mention of Hemorrhage - 03/31/2012 Vitamin D Deficiency - 03/06/2012 Hyperlipidemia - 04/21/2011 Hypertension - 04/21/2011 S/P Unilateral Salpingo-Oophorectomy - 02/18/2011 S/P Jenny (Total Abdominal Hysterectomy) - 02/18/2011 Copd (Chronic Obstructive Pulmonary Disease) ([facility]) - 08/24/2010 Htn (Hypertension), Benign - 08/12/2009 Hypokalemia - 08/12/2009 Brachial Neuritis Or Radiculitis NOS - 05/24/2008 Diverticulosis of Colon (Without Mention of Hemorrhage) Comment: Diverticulosis Personal History of Colonic Polyps Comment: Colon polyps Restless Legs Syndrome (Rls) Peripheral Enthesopathies and Allied Syndromes - 05/20/2005 Osteoporosis, Unspecified - 05/20/2005 restless leg syndrome - 05/20/2005 Social History Tobacco Use Smoking status: Former Packs/day: 1.00 Years: 53.00 Additional pack years: 0.00 Total pack years: 53.00 Types: Cigarettes Start date: 08/11/1963 Quit date: 10/04/2016 Years since quittin.4 Smokeless tobacco: Never Tobacco comments: 10-20 year period in 30-40s when quit. Vaping Use Vaping Use: Never used Substance Use Topics Alcohol use: Yes Comment: very seldom Drug use: No Review of Systems Respiratory: Negative. Cardiovascular: Negative. Musculoskeletal: Positive for back pain. OBJECTIVE BP 130/52 Pulse 71 Wt 156 lb (70.8kg) SpO2 97% Physical Exam Vitals and nursing note reviewed. Constitutional: General: She is awake. She is not in acute distress. Appearance: Normal appearance. She is well-developed and well-groomed. She is not ill-appearing, toxic-appearing or diaphoretic. HENT: Head: Normocephalic. Right Ear: External ear normal. Left Ear: External ear normal. Nose: Nose normal. Eyes: General: Vision grossly intact. Conjunctiva/sclera: Conjunctivae normal. Pupils: Pupils are equal, round, and reactive to light. Neck: Vascular: No JVD. Trachea: Trachea normal. Cardiovascular: Rate and Rhythm: Normal rate and regular rhythm. Pulses: Normal pulses. Heart sounds: Normal heart sounds. No murmur heard. Pulmonary: Effort: Pulmonary effort is normal. No accessory muscle usage, prolonged expiration or respiratory distress. Breath sounds: Normal breath sounds. Musculoskeletal: Cervical back: Normal and neck supple. Thoracic back: Normal. Lumbar back: Spasms and tenderness (left paraspinal) present. No swelling, edema, deformity, signs of trauma, lacerations or bony tenderness. Decreased range of motion. Positive right straight leg raise test and positive left straight leg raise test. No scoliosis. Comments: No bony step offs Skin: General: Skin is warm and dry. Capillary Refill: Capillary refill takes less than 2 seconds. Neurological: General: No focal deficit present. Mental Status: She is alert and oriented to person, place, and time. Mental status is at baseline. Psychiatric: Attention and Perception: Attention and perception normal. Mood and Affect: Mood and affect normal. Speech: Speech normal. Behavior: Behavior normal. Behavior is cooperative. Thought Content: Thought content normal. Cognition and Memory: Cognition and memory normal. Judgment: Judgment normal. ASSESSMENT/PLAN: 1. Chronic bilateral thoracic back pain - ICD9: 724.1, 338.29, ICD10: M54.6, G89.29 (primary diagnosis) She has been trying things like rest, ice, heat, home exercises, chiropractor and massage, NSAIDs, tylenol. Not improving. Can check xrays, start steroid taper, lower dose muscle relaxer as needed. Consult PT. - XR THORACIC LIMITED 2V AP/LAT - PREDNISONE 10 MG TABLET - METHOCARBAMOL 500 MG TABLET - CONSULT TO PHYSICAL THERAPY 2. Lumbar pain - ICD9: 724.2, ICD10: M54.50 See #1 - XR LUMBAR GENERAL 3V AP/LAT/L5-S1 - PREDNISONE 10 MG TABLET - METHOCARBAMOL 500 MG TABLET - CONSULT TO PHYSICAL THERAPY 3. Stasis edema of both lower extremities - ICD9: 459.30, ICD10: I87.303 Stop the metolazone and see how swelling does. - METOLAZONE 2.5 MG TABLET 4. Lymphedema of both lower extremities - ICD9: 457.1, ICD10: I89.0 - METOLAZONE 2.5 MG TABLET 5. Encounter for therapeutic drug monitoring - ICD9: V58.83, ICD10: Z51.81 - CBC + DIFF - BASIC METABOLIC PNL 6. Need for influenza vaccination - ICD9: V04.81, ICD10: Z23 - INFLUENZA VACCINE, PRSV FREE, AGE 65+ YR, HIGH DOSE, QUADRIVALENT (FLUZONE HIGH-DOSE) 7. Primary hypertension - ICD9: 401.9, ICD10: I10 - Controlled - Continue current medications - Recommend home blood pressure monitoring, to bring results to next visit - Encouraged sodium restriction, DASH or Mediterranean diet - Recommend regular aerobic exercise - BASIC METABOLIC PNL 8. Stage 3a chronic kidney disease (HCC) - ICD9: 585.3, ICD10: N18.31 Stable, decrease diuretics, check labs today. - BASIC METABOLIC PNL Medical Decision Making: Problems: Moderate: 2+ stable chronic illnesses Data: Unique test(s) ordered: 3+ Risk: Moderate: Drug management Medical Decision Making Level: 4 - Moderate Portions of this note have been entered by ancillary staff. I have reviewed and when necessary edited, so that they are an adequate record of my encounter with this patient Please note that parts of this document were created using voice recognition software and therefore may contain grammatical errors. Patient verbalizes understanding of instructions from today's visit and in agreement with treatment plan. Questions answered. Agrees to call the office if questions, concerns of issues with acute symptoms not improving or if they worsen. See diagnoses and orders for additional plan(s). Allergies and medications were reviewed, list was updated, and refills given if needed. Past medical, surgical, social, and family history reviewed and updated as appropriate. Encouraged proper diet & exercise as well as compliance with taking medications. Age-appropriate health preventative measures were discussed. Return in about 2 months (around 05/23/2023) for recheck. Rosaura Suárez APRN-CORINNA documented in this encounter [facility] 03-11-2023 Note [facility] 03-11-2023 History of Present illness Narrative CDM Telephonic Outreach Provider Action/FYI CDM: COPD, CKD Left a message to verify symptom status, instructed to call PCP with any changes in condition?or needs. Contacted for: Routine Telephonic Outreach Contact made with patient: No, left message. Alannah Hi RN March 11, 2023 5:59 PM CDM Telephonic Outreach Provider Action/FYI CDM: COPD, CKD Left a message to verify symptom status, instructed to call PCP with any changes in condition?or needs. Contacted for: Routine Telephonic Outreach Contact made with patient: No, left message. Alannah Hi RN March 09, 2023 1:26 PM documented in this encounter [facility] 03-09-2023 Note [facility] 02-18-2023 Miscellaneous Notes [facility] contacted patient and they do not have budesonide or ipratropium nebulizers in stock and they are currently on backorder. Budesonide is available at [facility] in [place] and Ipratropium is available at [facility]. Loaded scripts as call RX for 30 day supply. Angélica Franco LPN documented in this encounter [facility] 02-07-2023 Note [facility] 02-04-2023 Note [facility] 02-01-2023 Note [facility] 01-11-2023 Miscellaneous Notes Referral and records faxed to Dr. Clayton's office. Referral placed, please fax to Dr. Clayton's office. Thanks! Pt calls to reports Dr. Clayton's office said they need a referral from provider faxed to them so pt can schedule. Ligia Tierney LPN documented in this encounter [facility] 01-07-2023 Miscellaneous Notes Patient notified and voiced her understanding. LEFT MESSAGE FOR PATIENT TO CALL OFFICE. Since swelling improved she can decrease the metolazone to every other day for the next several days and if swelling is not returning/worsening can then stop it. Agree with seeing GI for there persistent abdominal issues. TC to patient who verbalized understanding of providers message and states the ER only gave her [place] every 6 hours but she has run out. Patient states her swelling has went down but she is still having abdominal pain. She states a nurse from [facility] called to discuss the abdominal pain and is trying to get her in with 's office in GI. Patient inquiring if she is to continue taking the metolazone. Please advise. Thank you. CRAIG Schumacher Please call Emerson and let her know that recent labs show her kidney function has worsened with the increased water pills. It looks like she went to ER since the labs were drawn. Can we see if they made any changes in her meds and get an update on her swelling and abdominal pain. documented in this encounter [facility] 12-30-2022 Note [facility] 12-30-2022 Miscellaneous Notes Patient notified. Verbalized understanding. If pain is severe pain needs emergently seen. Not only was she treated from diverticulitis recently she had a large kidney stone in her left kidney. This pain may be related to that as well, or continued diverticulitis, or other cause. Thank you Diana Solares APRN.TA[employer] WORK[employer] Pt called and she was seen in the office on 12-27-22 for diverticulitis and pt was put on ATB. Pt reports the pain is severe on left side.. Pain scale as a 10. Denies nausea, fever, vomiting or diarrhea. Pt urinating fine last time was 10 minutes ago. Pt calling to see what you would advise her to do. 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 Dayan Ibarra LPN documented in this encounter [facility] 12-30-2022 History of Present illness Narrative CDM Telephonic Outreach Provider Action/FYI CDM: COPD Called Pt left a message, Instructed to call PCP with any symptom or condition changes. Contacted for: Routine Telephonic Outreach Contact made with patient: No, left message. Alannah Hi RN December 30, 2022 2:10 PM CDM Telephonic Outreach Provider Action/FYI CDM: COPD Called Pt left a message, Instructed to call PCP with any symptom or condition changes. Contacted for: Routine Telephonic Outreach Contact made with patient: No, left message. Alannah Hi RN December 28, 2022 1:12 PM documented in this encounter [facility] 12-28-2022 Note [facility] 12-27-2022 Note [facility] 12-23-2022 Note [facility] 12-22-2022 Miscellaneous Notes See separate phone encounter addressing this. documented in this encounter [facility] 12-22-2022 Miscellaneous Notes Patient has been identified by name and date of : Yes, Provider pcp Date 12/22 Time 818 Patient phones for refill(s): Requested Prescriptions Pending Prescriptions Disp Refills metOLazone (ZAROXOLYN) 2.5 mg tablet 30 tablet 1 Sig: Take 1 tablet by mouth once daily. Prior to Lasix as discussed. Date of last office visit in primary care: 12/14/22 Last 2 Encounter Wt Readings: Date: Wt: 12/14/2022 77.6 kg (171 lb) 10/30/2022 76.6 kg (168 lb 12.8 oz) Previous labs/tests for medication: Not applicable Please advise. Thank you. Eboni Cervantes documented in this encounter [facility] 12-15-2022 Miscellaneous Notes I received an encounter from her primary care physician that patient was in the emergency room and had a CT scan done at outside hospital. I reviewed the report. Overall kidneys appear stable Cancel upcoming ultrasound and appointment Reschedule for 9 months with ultrasound prior with me documented in this encounter [facility] 12-14-2022 Note [facility] 12-01-2022 Note [facility] 11-30-2022 Note [facility] 11-26-2022 Note [facility] 11-19-2022 Note [facility] 11-19-2022 History of Present illness Narrative CDM Telephonic Outreach Provider Action/FYI CDM: CKD, COPD 2nd Call to Pt, left a message instructed to call PCP with any changes in condition or needs. Contacted for: Routine Telephonic Outreach Contact made with patient: No, left message. Alannah Hi RN November 19, 2022 2:00 PM CDM Telephonic Outreach Provider Action/FYI CDM: CKD, COPD Called Pt, left a message instructed to call PCP with any changes in condition or needs. Contacted for: Routine Telephonic Outreach Contact made with patient: No, left message. Alannah Hi RN November 18, 2022 9:20 AM documented in this encounter [facility] 11-18-2022 Note [facility] 10-30-2022 Note [facility] 10-30-2022 Note [facility] 10-30-2022 Instructions Diana Olmos APRN.[facility] - 10/30/2022 9:01 AM EDT Understanding COPD What is COPD? COPD stands for chronic obstructive pulmonary (lung) disease. COPD is a term applied to a family of diseases that includes emphysema, chronic bronchitis, and emphysema due to alpha-1 antitrypsin deficiency. COPD usually progresses gradually, causing limited airflow in and out of the lungs. COPD adds to the work of the heart. Diseased lungs might reduce the amount of oxygen that goes to the blood. High blood pressure in blood vessels from the heart to the lungs makes it difficult for the heart to pump. Lung disease can also cause the body to produce too many red blood cells, which might make the blood thicker and harder to pump. Patients who have COPD with low oxygen levels might develop an enlarged heart (cor pulmonale). This condition weakens the heart and causes increased shortness of breath, and swelling in the legs and feet. The good news is that COPD is treatable, and the information in this manual can help you manage your COPD and flare-ups, and help you to modify your risk factors. Chronic bronchitis Chronic bronchitis is irritation and inflammation (swelling) of the lining in the bronchial tubes (air passages). The irritation causes coughing and an excess amount of mucus in the airways. The swelling makes it difficult to get air in and out of the lungs. The small, hair-like structures on the inside of the airways (called cilia) might be damaged by the irritation. The cilia are then unable to help clean mucus from the airways. Bronchitis is generally considered chronic when you have: a productive cough (cough up mucus) and shortness of breath that lasts about three months or more each year for two or more years in a row. Your doctor might define chronic bronchitis differently. Emphysema Emphysema is the destruction, or breakdown, of the dorsey of the alveoli (air sacs) located at the end of the bronchial tubes. The damaged alveoli are not able to exchange oxygen and carbon dioxide between the lungs and the blood. The bronchioles lose their elasticity and collapse when you exhale, trapping air in the lungs. The trapped air keeps fresh air and oxygen from entering the lungs. Who is affected by COPD? Emphysema and chronic bronchitis affect approximately 16 million people in the [place], or close to 11 percent of the population. Symptoms of COPD Shortness of breath Shortness of breath with mild exercise (walking, using the stairs, etc.) Chronic, productive cough (with mucus) A feeling of tightness in the chest Wheezing What causes COPD? The two primary causes of COPD are cigarette smoking and alpha-1 antitrypsin (AAT) deficiency. Air pollution and occupational dusts might also contribute to COPD, especially when the person exposed to these substances is a cigarette smoker. Cigarette smoke causes COPD by irritating the airways and creating inflammation that narrows the airways, making it more difficult to breathe. Cigarette smoke also causes the cilia to stop working properly so mucus and trapped particles are not cleaned from the airways. As a result, chronic cough and excess mucus production develop, leading to chronic bronchitis. In some people, chronic bronchitis and infections can lead to destruction of the small airways, or emphysema. AAT deficiency, an inherited disorder, can also lead to emphysema. Alpha-1 antitrypsin (AAT) is a protective material produced in the liver and transported to the lungs to help combat inflammation. When there is not enough of the chemical AAT, the body is no longer protected from an enzyme in the white blood cells. This can cause a breakdown in the dorsey of the air sacs (alveoli). When the alveoli are destroyed, oxygen cannot be transferred into the blood and carbon dioxide cannot be taken from the blood to be exhaled. How is COPD diagnosed? Medical history To diagnose COPD, the physician needs the answers to the following questions: Do you smoke? Have you had chronic exposure to dust or air pollutants? Do other members of your family have lung disease? Are you short of breath? Do you get short of breath with exercise? Do you have chronic cough and/or wheezing? Do you cough up excess mucus? Physical exam To help with the diagnosis, the physician will conduct a thorough physical exam, which includes: Listening to your lungs and heart Checking your blood pressure and pulse Examining your nose and throat Checking your feet and ankles for swelling Laboratory and other tests Several laboratory and other tests are needed to confirm a diagnosis of COPD. These tests might include: Electrocardiogram (ECG or EKG) to check heart function and rule out heart disease as a cause of shortness of breath Chest X-ray to look for lung changes that could be caused by COPD Spirometry and pulmonary function tests (PFTs) to determine lung volume and air flow Pulse oximetry to measure the saturation of oxygen in the blood Arterial blood gases (ABGs) to determine the amount of oxygen and carbon dioxide in the blood Exercise testing to determine if the oxygen level in the blood drops during exercise Treatment In the beginning stages of COPD, there is minimal shortness of breath that might be noticed only during exercise. As the disease progresses, shortness of breath might worsen, and you might need to wear an oxygen device. To help control other symptoms of COPD, the following treatments and lifestyle changes might be prescribed: Quitting smoking Avoiding cigarette smoke and other irritants Taking medications including: -bronchodilators -anti-inflammatory agents -oxygen -antibiotics Maintaining a healthy diet Following a structured exercise program Preventing respiratory infections Controlling stress If your COPD progresses, you might be eligible to be evaluated for lung volume reduction surgery or lung transplantation. You might also be eligible to participate in certain clinical trials (research studies). Ask your health care providers about studies being conducted in your hospital. What is the outlook? Although COPD cannot be cured, its symptoms can be treated and your quality of life can be improved. Your prognosis, or outlook, for the future will depend on how well your lungs are functioning, your symptoms, and how well you respond to and follow your treatment plan. Copyright [id number] [facility]. All rights reserved documented in this encounter [facility] 10-30-2022 History of Present illness Narrative This note was created using [employer]. Subjective Chanel Rousseau is a 87 year old female. 87 year old female with PMH RLS, HTN, PAD, COPD, chronic bronchitis and obesity presents for illness. Acute onset 3 days ago + cough Slightly productive. Like a foghorn +runny nose States sore throat from coughing. Denies eye or ear complaints. Denies fever or chills. Denies N/V/D Denies CP Denies body aches. Denies fatigue. Has tried cough syrup, tea and honey. Former tobacco smoker. The history is provided by the patient. No sign language translator was used. Cough This is a new problem. The current episode started more than 2 days ago. The problem occurs constantly. The problem has been gradually worsening. The cough is Productive of sputum. There has been no fever. Associated symptoms include chills, ear congestion, rhinorrhea, shortness of breath and wheezing. Pertinent negatives include no chest pain, no sweats, no weight loss, no ear pain, no headaches, no myalgias and no eye redness. She has tried cough syrup for the symptoms. The treatment provided no relief. Smoker: former. Her past medical history is significant for bronchitis and COPD. Her past medical history does not include pneumonia, bronchiectasis, emphysema or asthma. PAST MEDICAL HISTORY Diagnosis Date Basal cell carcinoma Carotid stenosis CEA left CKD (chronic kidney disease) stage 3, GFR 30-59 ml/min ([facility]) 07/30/2018 COPD (chronic obstructive pulmonary disease) ([facility]) Diverticulosis of colon (without mention of hemorrhage) Diverticulosis Hypertension Rolly Smith MD Osteoporosis, unspecified Personal history of colonic polyps Colon polyps Restless legs syndrome (RLS) TIA (transient ischemic attack) 2008 Plavix PAST SURGICAL HISTORY Procedure Laterality Date CAROTID ENDARTERECTOMY Left 01/23/2021 COLONOSCOPY FLX DX W/COLLJ SPEC WHEN PFRMD 03/25/2004 Colonoscopy CYSTOSCOPY 06/02/2012 left ureteral calculi ESOPHAGOGASTRODUODENOSCOPY TRANSORAL DIAGNOSTIC 03/25/2004 EGD PAST SURGICAL HISTORY OF 04/15/2004 right inferior parathyroidectomy TOTAL ABDOMINAL HYSTERECT W/WO RMVL TUBE OVARY 05/18/1971 Hysterectomy, JENNY, LSO carcinoma insitu ALLERGIES Amlodipine, Aspirin, Lisinopril, and Requip [Ropinirole] MEDICATIONS doxycycline monohydrate 100 mg tablet Take 1 tablet by mouth twice daily for 7 days. methylPREDNISolone (MEDROL, MARGE,) 4 mg Dose-Pack Follow dosing instructions, take with food. albuterol HFA (VENTOLIN HFA) 90 mcg/actuation inhaler Inhale 2 Puffs as instructed every 4 hours as needed for wheezing/shortness of breath. May take 2 puffs prior to exercise benzonatate (TESSALON PERLES) 100 mg capsule Take 1-2 capsules by mouth three times daily as needed for cough. spironolactone (ALDACTONE) 25 mg tablet Take 1 tablet by mouth twice daily. fluticasone (FLONASE) 50 mcg/actuation nasal spray Use 2 Sprays in each nostril once daily. Rinse mouth after use. albuterol (PROVENTIL) 2.5 mg /3 mL (0.083 %) nebulizer solution Use 3 mL via nebulizer four times daily. USE 1 VIAL (3 ML) VIA NEBULIZER FOUR TIMES A DAY OVER 5 TO 15 MINUTES FOR WHEEZING AND SHORTNESS OF BREATH metOLazone (ZAROXOLYN) 2.5 mg tablet Take 1 tablet by mouth once daily. Prior to Lasix as discussed. furosemide (LASIX) 40 mg tablet Take 1 tablet by mouth twice daily. As directed losartan-hydroCHLOROthiazide (HYZAAR) 100-25 mg per tablet Take 1 tablet by mouth once daily. predniSONE (DELTASONE) 20 mg tablet Take two daily for 5 days. traZODone (DESYREL) 100 mg tablet Take 0.5 tablets by mouth daily at bedtime. for sleep clopidogrel (PLAVIX) 75 mg tablet Take 1 tablet by mouth once daily. atorvastatin (LIPITOR) 40 mg tablet Take 1 tablet by mouth once daily. budesonide (PULMICORT) 0.5 mg/2 mL nebulizer solution Use 2 mL via nebulizer twice daily. pramipexole (MIRAPEX) 1 mg tablet Take 1 tablet by mouth daily at bedtime. hydrALAZINE (APRESOLINE) 25 mg tablet Take 25 mg by mouth three times daily. predniSONE (DELTASONE) 10 mg tablet Take 2 tabs po BID for 2 days then 1 tab po BID for 2 days then 1/2 tab po BID for 2 days then 1/2 tab daily for 2 days then stop (Patient not taking: No sig reported) multivitamin with folic acid (THERA, ONE DAILY) 400 mcg Take by mouth. ipratropium (ATROVENT) 0.02 % nebulizer solution USE 1 VIAL (2.5 ML) VIA NEBULIZER FOUR TIMES A DAY OVER 5 TO 15 MINUTES FOR WHEEZING OR SHORTNESS OF BREATH carvedilol (COREG) 6.25 mg tablet Take 2 tablets by mouth twice daily. (Dr. Smith adjusting) Cholecalciferol, Vitamin D3, 1,000 unit cap Take 1 capsule by mouth once daily. FAMILY HISTORY Problem Relation Age of Onset Diabetes Mother Heart Mother None Father hx unknown Heart Brother Diabetes Brother Cancer Brother Lung, 1/2 brother. Asthma No Family History COPD No Family History Emphysema No Family History Social History Tobacco Use Smoking status: Former Packs/day: 1.00 Years: 53.00 Pack years: 53.00 Types: Cigarettes Start date: 08/11/1963 Quit date: 10/04/2016 Years since quittin.0 Smokeless tobacco: Never Tobacco comments: 10-20 year period in 30-40s when quit. Vaping Use Vaping Use: Never used Substance Use Topics Alcohol use: Yes Comment: very seldom Drug use: No Review of Systems Constitutional: Positive for chills and fatigue. Negative for fever and weight loss. HENT: Positive for congestion, postnasal drip and rhinorrhea. Negative for ear pain. Eyes: Negative for redness. Respiratory: Positive for cough, shortness of breath and wheezing. Cardiovascular: Negative for chest pain, palpitations and leg swelling. Gastrointestinal: Negative for abdominal pain, diarrhea, nausea and vomiting. Musculoskeletal: Negative for arthralgias, back pain and myalgias. Skin: Negative for color change, pallor, rash and wound. Allergic/Immunologic: Negative for environmental allergies, food allergies and immunocompromised state. Neurological: Negative for dizziness, facial asymmetry and headaches. Hematological: Negative for adenopathy. Does not bruise/bleed easily. Psychiatric/Behavioral: Negative for agitation and behavioral problems. Objective BP 132/82 Pulse 70 Temp (!) 35.9 C (96.6 F) Resp 20 Wt 76.6 kg (168 lb 12.8 oz) SpO2 96% BMI 30.87 kg/m Physical Exam Vitals and nursing note reviewed. Constitutional: General: She is not in acute distress. Appearance: Normal appearance. She is normal weight. She is not ill-appearing, toxic-appearing or diaphoretic. Comments: Chronic elderly appearing female. Non toxic HENT: Head: Normocephalic and atraumatic. Right Ear: Ear canal and external ear normal. Left Ear: Ear canal and external ear normal. Nose: Nose normal. No congestion or rhinorrhea. Mouth/Throat: Mouth: Mucous membranes are moist. Pharynx: No oropharyngeal exudate or posterior oropharyngeal erythema. Eyes: General: Right eye: No discharge. Left eye: No discharge. Extraocular Movements: Extraocular movements intact. Conjunctiva/sclera: Conjunctivae normal. Pupils: Pupils are equal, round, and reactive to light. Cardiovascular: Rate and Rhythm: Normal rate and regular rhythm. Pulses: Normal pulses. Heart sounds: Normal heart sounds. No murmur heard. No friction rub. Pulmonary: Effort: Pulmonary effort is normal. No respiratory distress. Breath sounds: No stridor. Wheezing and rhonchi present. No rales. Chest: Chest wall: No tenderness. Abdominal: General: Abdomen is flat. There is no distension. Palpations: Abdomen is soft. There is no mass. Tenderness: There is no abdominal tenderness. There is no right CVA tenderness, left CVA tenderness, guarding or rebound. Hernia: No hernia is present. Musculoskeletal: General: No swelling, tenderness, deformity or signs of injury. Normal range of motion. Cervical back: Normal range of motion and neck supple. No rigidity. Right lower leg: No edema. Left lower leg: No edema. Lymphadenopathy: Cervical: No cervical adenopathy. Skin: General: Skin is warm and dry. Coloration: Skin is not jaundiced or pale. Findings: No bruising, erythema, lesion or rash. Neurological: General: No focal deficit present. Mental Status: She is alert and oriented to person, place, and time. Cranial Nerves: No cranial nerve deficit. Sensory: No sensory deficit. Motor: No weakness. Coordination: Coordination normal. Gait: Gait normal. Psychiatric: Mood and Affect: Mood normal. Behavior: Behavior normal. Thought Content: Thought content normal. Judgment: Judgment normal. Assessment and Plan ASSESSMENT/PLAN: 1. Acute cough - ICD9: 786.2, ICD10: R05.1 (primary diagnosis) X 3 days Progressively worsening Increased sputum Increases SOB - XR CHEST 2V FRONTAL/LAT-IMPRESSION: No acute radiographic abnormality. 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 2. COPD with exacerbation (HCC) - ICD9: 491.21, ICD10: J44.1 CXR negative Hemodynamically stable Non toxic Will start Doxy RX Medrol Dose pack Use inhaler PRN Follow up with PCP Diana Olmos APRN.TAKE OFF WORKER documented in this encounter [facility] 10-29-2022 Note [facility] 10-29-2022 History of Present illness Narrative CDM Telephonic Outreach Provider Action/FYI CDM: COPD Pt denies new or worsening symptoms or needs, instructed to call PCP with any changes in symptoms or concerns. Pt verbalized understanding Contacted for: Routine Telephonic Outreach Contact made with patient: Yes Patient identified by name and date of . Discussed care with patient Are you experiencing any new or worsening symptoms you need to talk about today? No Disease Specific Do you check your blood pressure at home? Yes, Enter readings: BP 105/45 Do you have new or worsening shortness of breath with activity? No Do you have new or worsening cough? No Do you have new or worsening wheezing? No Do you need to use your rescue (Albuterol) inhaler or nebulizer more often than normal? No Based on mat man, the following disposition is advised: Symptoms present, not severe. Routed to: No Action Needed JAMRI Education Provided this Outreach: No Alannah Hi RN October 29, 2022 10:16 AM documented in this encounter [facility] 10-20-2022 Note [facility] 10-20-2022 History of Present illness Narrative [facility] TELEPHONIC OUTREACH Provider Action/FYI: CDM: CKD, COPD Left a message to verify symptom status, instructed to call PCP with any changes in condition or needs. Contact made with patient: No - Left message Guy my name is Alannah Hi RN your Computer Artist from the [facility] I am calling today for your bi-weekly check in. I am sorry I missed your call. I will reach out to you again tomorrow. (if the third call I will reach out to you again next week) Enter next patient outreach date for the following business day using the Track Pt Outreach. End outreach. Alannah Hi RN October 20, 2022 12:41 PM INSIGHT CD TELEPHONIC OUTREACH Provider Action/FYI: CDM: CKD, COPD Left a message to verify symptom status, instructed to call PCP with any changes in condition or needs. Contact made with patient: No - Left message Guy my name is Alannah Hi RN your Computer Artist from the [facility] I am calling today for your bi-weekly check in. I am sorry I missed your call. I will reach out to you again tomorrow. (if the third call I will reach out to you again next week) Enter next patient outreach date for the following business day using the Track Pt Outreach. End outreach. Alannah Hi RN October 19, 2022 2:58 PM documented in this encounter [facility] 10-19-2022 Note [facility] 10-18-2022 Miscellaneous Notes Patient phones requesting refills as follows: Requested Prescriptions Pending Prescriptions Disp Refills albuterol HFA (VENTOLIN HFA) 90 mcg/actuation inhaler 54 g 3 Sig: Inhale 2 Puffs as instructed every 4 hours as needed for wheezing/shortness of breath. May take 2 puffs prior to exercise Please review and advise. Angélica Franco LPN documented in this encounter [facility] 10-07-2022 Note [facility] 10-04-2022 Miscellaneous Notes Called and spoke to patient directly, we clarified her diuretics. Over the weekend she has been taking furosemide once daily and zaroxolyn once daily and this has improved her swelling. Will plan to continue with that regimen and if swelling worsens she should call and let us know. She also notes having a cough at night when laying flat, notices post nasal drainage, not using Flonase. Advised try Flonase before bed and can also try an oral antihistamine like Claritin or zyrtec if still persistent and then if not improving call in. Patient notified of message below. Patient asking to clarify again. Patient states she currently takes furosemide twice daily. So in summary, should patient take the following? : For 1 week she will take daily: AM: 1 tablet of Xaroxolyn, and 5-10 minutes later 1 tablet of lasix. PM: NO 2nd dose LASIX For 2nd week if swelling is still persistent: AM: 1 tablet of Xaroxolyn, and 5-10 minutes later 1 tablet of lasix. NOON: ADD: 1 tablet of lasix PM: no xarolxolyn or lasix 2. Patient was to get BMP drawn today. Asking if she should have this drawn another time due to medication changes being made today? Please advise patient and review medication orders x 2 with patient to ensure understanding. Encourage patient to write orders down. Thank you. I would recommend making the change of taking the zaroxolyn daily so she should be taking every day zaroxolyn and then 5-10 minutes later her furosemide and see how increasing the zaroxolyn dose from three times a week to daily impacts her swelling. If swelling is persistent despite that change then she should add the second dose of furosemide at noon for x1 week and update us. Patient calling to give Dr. Dunn an update as instructed. Patient states there has been some improvement in her leg and foot swelling but not a lot, since last OV on 09/17. . Per 09/17 OV note , pt was advised: COPIED: Start with Zaroxolyn (metolazone) 5 to 10 minutes prior to taking furosemide dose in the morning. If above adequate for getting swelling out the legs, can try taking the zaroxolyn just 3 days a week. If not adequate, can keep taking the zaroxolyn with furosemide daily and add noon furosemide for a week. Patient asking for further clarification: Asking if she should take the zaroxolyn AND furosemide TOGETHER DAILY (was taking zaroxolyn 3 days a week) along with adding noon furosemide daily for one week? Please advise. Thank you. documented in this encounter [facility] 09-27-2022 Miscellaneous Notes Spoke with pt and information listed below given. Pt verbalizes understanding. Pt will call to schedule apt if the medication does not help. Dayan Ibarra LPN Rx benzonatate sent. Offer recheck if needed Pt calls today to report she thought pcp was going to send a rx for benzonate for her cough to [facility] but [facility] does not have rx. In TE from 09/24 pt requested rx stating she still has a cough. 7:28 AM I am awaken each morning around 3-4 am with harsh cough, I cough clear flem for approximately half hour, My ears are clear now, still puffy eyes. Taking metolazone, legs still swollen and weight up 2 pounds this am. Still taking benzonatate , only a few left Please advise pt. Dayan Ibarra LPN Please review and advise. Ligia Tierney LPN documented in this encounter [facility] 09-27-2022 Miscellaneous Notes Spoke with an [facility] pharmacy order entry technician by the name of Faye Rowe. She requested a 90 day supply and approval was given. PATIENT NOTIFIED OF SAME. Does [facility] need called or was there a fax to address from them? Pt called and is notified of providers results and instructions. Pt voices understanding. She reports [facility] said they will not refill it until they receive a review from provider. Betty Duckworth RN The following approved medication requests have been transmitted electronically. Requested Prescriptions Signed Prescriptions Disp Refills spironolactone (ALDACTONE) 25 mg tablet 60 tablet 5 Sig: Take 1 tablet by mouth twice daily. Authorizing Provider: MADY DUNN MD See if any problems with ordering increased dose of spirinolactone. Let patient know can take 1 twice daily or 2 once daily to see if helps with edema. Progress report in 1 week. Any correspondence from [facility] regarding reason would not fill RX? Patient calling checking status of my chart message. Patient said she uses [facility] if needed. Patient also said [facility] will not fill Spironolactone rx needs office to call about the rx, not sure what issue? She said [facility] has tried to contact the office? Please advise Images from the original note were not included. Pt called to check status of the [employer] message she sent yesterday 09-23-22. See below. 7:28 AM I am awaken each morning around 3-4 am with harsh cough, I cough clear flem for approximately half hour, My ears are clear now, still puffy eyes. Taking metolazone, legs still swollen and weight up 2 pounds this am. Still taking benzonatate , only a few left Please advise pt. Dayan Ibarra LPN documented in this encounter [facility] 09-17-2022 Note [facility] 09-17-2022 Instructions Mady Dunn MD - 09/17/2022 3:36 PM EST Start with Zaroxolyn (metolazone) 5 to 10 minutes prior to taking furosemide dose in the morning. If above adequate for getting swelling out the legs, can try taking the zaroxolyn just 3 days a week. If not adequate, can keep taking the zaroxolyn with furosemide daily and add noon furosemide for a week. Try support socks that are more elastic--diabetic socks, Dr. Gutierres's, as wel las some [employer] brands or [employer]. Try propping feet up for half hour after taking water pills and see if that helps mobilize fluid. Check labs on way out then in 2 weeks or so. documented in this encounter [facility] 09-17-2022 History of Present illness Narrative This note was created using [employer]. Subjective Chanel Rousseau is a 86 year old female. Patient presents with: F/U 6 months SUBJECTIVE: Chanel Rousseau is a 86 year old year old lady here today for 6 month follow up appointment for review of medical conditions. URI symptoms noted. Was treated with Doxy, prednisone, tessalon perles for COPD exacerbation but no with sinus and ear symptoms. Also bowel issue but before meds started. Lasix was given and doubled up by music promoter. 40 mg twice daily (AM around 5:30 to 6, then noon). Swelling no better. Was for just 4 days--this was 2 weeks ago. Wears support sock that got from [employer].--not really right. Saw Dr. Trevino last time February 2022. Recommended leg pumps but could not afford out of pocket expense. To treat secondary lymphedema. Working with insurance and protective services social worker to get try to get pump through [facility] care. Depression Screening 07/07/2018 12/23/2020 01/25/2022 09/17/2022 PHQ-2 Score 0 0 4 0 PHQ-9 Score - - 7 - STEVEN-2 Total Score - - - - Depression screening tool completed and reviewed. Based on score and interview, patient is not at risk for depression. Screening tool discussed with patient, and I recommended no further intervention at this time. PAST MEDICAL HISTORY Diagnosis Date Basal cell carcinoma Carotid stenosis CEA left CKD (chronic kidney disease) stage 3, GFR 30-59 ml/min ([facility]) 07/30/2018 COPD (chronic obstructive pulmonary disease) ([facility]) Diverticulosis of colon (without mention of hemorrhage) Diverticulosis Hypertension Rolly Smith MD Osteoporosis, unspecified Personal history of colonic polyps Colon polyps Restless legs syndrome (RLS) TIA (transient ischemic attack) 2008 Plavix Current Outpatient Medications Medication Sig losartan-hydroCHLOROthiazide (HYZAAR) 100-25 mg per tablet Take 1 tablet by mouth once daily. albuterol (PROVENTIL) 2.5 mg /3 mL (0.083 %) nebulizer solution USE 1 VIAL (3 ML) VIA NEBULIZER FOUR TIMES A DAY OVER 5 TO 15 MINUTES FOR WHEEZING AND SHORTNESS OF BREATH traZODone (DESYREL) 100 mg tablet Take 0.5 tablets by mouth daily at bedtime. for sleep benzonatate (TESSALON PERLES) 100 mg capsule Take 1-2 capsules by mouth three times daily as needed for cough. clopidogrel (PLAVIX) 75 mg tablet Take 1 tablet by mouth once daily. atorvastatin (LIPITOR) 40 mg tablet Take 1 tablet by mouth once daily. budesonide (PULMICORT) 0.5 mg/2 mL nebulizer solution Use 2 mL via nebulizer twice daily. pramipexole (MIRAPEX) 1 mg tablet Take 1 tablet by mouth daily at bedtime. albuterol HFA (VENTOLIN HFA) 90 mcg/actuation inhaler Inhale 2 Puffs as instructed every 4 hours as needed for wheezing/shortness of breath. May take 2 puffs prior to exercise multivitamin with folic acid (THERA, ONE DAILY) 400 mcg Take by mouth. ipratropium (ATROVENT) 0.02 % nebulizer solution USE 1 VIAL (2.5 ML) VIA NEBULIZER FOUR TIMES A DAY OVER 5 TO 15 MINUTES FOR WHEEZING OR SHORTNESS OF BREATH spironolactone (ALDACTONE) 25 mg tablet Take 1 tablet by mouth once daily. Take one additional 25 mg spironolactone for SBP greater than 150 furosemide (LASIX) 40 mg tablet Take 40 mg by mouth once daily. carvedilol (COREG) 6.25 mg tablet Take 2 tablets by mouth twice daily. (Dr. Smith adjusting) Cholecalciferol, Vitamin D3, 1,000 unit cap Take 1 capsule by mouth once daily. predniSONE (DELTASONE) 20 mg tablet Take two daily for 5 days. hydrALAZINE (APRESOLINE) 25 mg tablet Take 25 mg by mouth three times daily. predniSONE (DELTASONE) 10 mg tablet Take 2 tabs po BID for 2 days then 1 tab po BID for 2 days then 1/2 tab po BID for 2 days then 1/2 tab daily for 2 days then stop (Patient not taking: No sig reported) No current facility-administered medications for this visit. Review of Systems Constitutional: Negative for appetite change, chills and fever. HENT: Positive for congestion (sinuses and nose), ear pain (pressure rather pain), rhinorrhea, sneezing (some) and tinnitus (thumping noise). Negative for sinus pressure, sinus pain, sore throat and trouble swallowing. Eyes: Negative for discharge. Respiratory: Positive for cough (was a week ago but not now) and shortness of breath (All the time but no worse than usual). Cardiovascular: Positive for leg swelling (bilateral and 3 to 4+). Negative for chest pain. Gastrointestinal: Negative for abdominal pain, diarrhea, nausea and vomiting. Has to straining to have BMs every other day. Not hard stools, sometimes large. No BRBPR. Started a month or so ago. Genitourinary: Negative for difficulty urinating, dysuria and frequency. Musculoskeletal: Negative for arthralgias and myalgias. Objective BP 132/62 Pulse 80 Temp 36.1 C (96.9 F) Resp 18 Wt 77.1 kg (170 lb) SpO2 95% BMI 31.09 kg/m Physical Exam Constitutional: Appearance: Normal appearance. HENT: Head: Normocephalic. Eyes: Conjunctiva/sclera: Conjunctivae normal. Cardiovascular: Rate and Rhythm: Normal rate and regular rhythm. Heart sounds: Normal heart sounds. Pulmonary: Effort: Pulmonary effort is normal. Breath sounds: Normal breath sounds. Musculoskeletal: Right lower leg: Edema present. Left lower leg: Edema present. Skin: General: Skin is warm and dry. Neurological: General: No focal deficit present. Mental Status: She is alert and oriented to person, place, and time. Psychiatric: Mood and Affect: Mood normal. Behavior: Behavior normal. Thought Content: Thought content normal. Judgment: Judgment normal. Assessment and Plan Encounter Diagnosis ICD-10-CM 1. Chronic obstructive pulmonary disease, unspecified COPD type ([facility]) J44.9 exacerbation resolved 2. Eustachian tube dysfunction, bilateral H69.83 left is worse; will treat with nasal steroid 3. Stage 1 mild COPD by GOLD classification ([facility]) J44.9 albuterol (PROVENTIL) 2.5 mg /3 mL (0.083 %) nebulizer solution 4. COPD with exacerbation ([facility]) J44.1 albuterol (PROVENTIL) 2.5 mg /3 mL (0.083 %) nebulizer solution 5. Vitamin D deficiency E55.9 VITAMIN D 25 HYDROXY 6. Stage 3a chronic kidney disease ([facility]) N18.31 COMP METABOLIC PANEL BASIC METABOLIC PNL CANCELED: BASIC METABOLIC PNL 7. Essential hypertension I10 COMP METABOLIC PANEL BASIC METABOLIC PNL CANCELED: BASIC METABOLIC PNL 8. Lymphedema of both lower extremities I89.0 metOLazone (ZAROXOLYN) 2.5 mg tablet COMP METABOLIC PANEL CBC MAGNESIUM BLD TSH BLD T4 FREE/FREE THYROX VITAMIN D 25 HYDROXY CANCELED: BASIC METABOLIC PNL 9. Stasis edema of both lower extremities I87.303 metOLazone (ZAROXOLYN) 2.5 mg tablet COMP METABOLIC PANEL CBC MAGNESIUM BLD TSH BLD T4 FREE/FREE THYROX VITAMIN D 25 HYDROXY CANCELED: BASIC METABOLIC PNL Above issues addressed with patient. Patient involved in shared decision making for management of medical issues. History and medications reviewed. Epic updated as needed Refills and/or prescriptions taken care of and meds adjusted as indicated after reviewed history, exam and labs. Health Maintenance reviewed. Updated record and/or ordered tests as recorded. Encouraged on efforts at healthy diet and regular exercise and adequate sleep. Needs to work on staying hydrated and also work on mobilizing fluid in legs from lymphedema. Close monitoring of kidney function. I spent a total of 45 minutes on the date of the service which included [id number] patient care, completing clinical documentation, obtaining and/or reviewing separately obtained history, performing a medically appropriate examination, counseling and educating the patient/family/caregiver, and ordering medications, tests, or procedures. Mady Dunn MD documented in this encounter [facility] 09-10-2022 Note [facility] 09-09-2022 Note [facility] 09-06-2022 Miscellaneous Notes Patient has been identified by name and date of : Yes, Provider [place] Date 09/06/22 Time 10:30am Patient phones for refill(s): Requested Prescriptions Pending Prescriptions Disp Refills losartan-hydroCHLOROthiazide (HYZAAR) 100-25 mg per tablet 90 tablet 3 Sig: Take 1 tablet by mouth once daily. Date of last office visit in primary care: 09/03/22 Last 2 Encounter Wt Readings: Date: Wt: 09/03/2022 77.6 kg (171 lb) 07/29/2022 77.6 kg (171 lb) Previous labs/tests for medication: Blood Pressure: BUN (mg/dL) Date Value 03/30/2022 39 12/04/2020 27 Sodium (mmol/L) Date Value 03/30/2022 140 12/04/2020 145 Last 1 Encounter BP Readings: Date: BP: 09/03/2022 150/71[bp average[ Please advise. Thank you. Hannah Monae LPN documented in this encounter [facility] 09-03-2022 Note [facility] 09-03-2022 History of Present illness Narrative SUBJECTIVE: SHINGRIX VACCINE(1 of 2) Never done COVID-19 VACCINE(3 - Booster for Moderna series) due on 11/09/2020 ADVANCE DIRECTIVE DISCUSSION Never done DEPRESSION ASSESSMENT Never done HPI Chanel Rousseau is a 86 year old female. PMH signficiant for ACTIVE PROBLEM LIST Peripheral Enthesopathies and Allied Syndromes Osteoporosis, Unspecified restless leg syndrome Diverticulosis of Colon (Without Mention of Hemorrhage) Personal History of Colonic Polyps Restless Legs Syndrome (Rls) Brachial Neuritis Or Radiculitis NOS Htn (Hypertension), Benign Hypokalemia Copd (Chronic Obstructive Pulmonary Disease) ([facility]) S/P Unilateral Salpingo-Oophorectomy S/P Jenny (Total Abdominal Hysterectomy) Hyperlipidemia Hypertension Vitamin D Deficiency Nonspecific Abnormal Finding in Stool Contents Acute Gastritis Without Mention of Hemorrhage Calculi, Ureter Essential Hypertension Mixed Simple and Mucopurulent Chronic Bronchitis ([facility]) Mixed Hyperlipidemia Herpes Zoster Without Complication Bifascicular Block Obesity, Class I, Bmi 30-34.9 Ckd (Chronic Kidney Disease) Stage 3, Gfr 30-59 Ml/Min ([facility]) Tia (Transient Ischemic Attack) Carotid Artery Stenosis Pad (Peripheral Artery Disease) ([facility]) Vascular: Dr. Trevino. Expander Machine Operator: Dr.Moodispaw [facility]. Pulmonology: Ana Hernandez / Dr Kong Urologist: Spencer Boone MD for incidentally discovered right renal mass 11/2021. Since last seen by me she was seen by Dr. Dora Kong July 29, 2022 and treated with doxycycline and prednisone taper for COPD exacerbation. Notes she has had cough. wheezing and increased SOBOE and increased leg swelling for the last week. Weight is stable. Notes her music promoter increased her lasix from 40 mg QD to 40 mg BID this week. Cough: is keeping her awake Sputum:limited production SOBOE: increased from baseline PND: no Notes using maintenance inhaler, albuterol inhaler but has not been able to get nebulizer solution through her mail order pharmacy x 3 days. She notes chronic leg swelling, has seen Dr. Trevino for this. Considering compression pumps. States has not had insurance cover this; has a college and career counselor looking into it for her. Notes trazodone did not seem to help her sleep so far. Review of Systems Constitutional: Negative. Cardiovascular: Positive for leg swelling. Gastrointestinal: Negative for constipation. Psychiatric/Behavioral: Positive for sleep disturbance. Objective BP 150/71 Pulse 72 Resp 16 Wt 77.6 kg (171 lb) SpO2 96% BMI 31.28 kg/m Physical Exam Vitals and nursing note reviewed. Constitutional: Appearance: Normal appearance. HENT: Head: Normocephalic and atraumatic. Eyes: Conjunctiva/sclera: Conjunctivae normal. Neck: Thyroid: No thyromegaly. Vascular: No JVD. Cardiovascular: Rate and Rhythm: Normal rate and regular rhythm. Heart sounds: Normal heart sounds. Pulmonary: Effort: Pulmonary effort is normal. Breath sounds: Wheezing present. No rales. Abdominal: General: Bowel sounds are normal. Palpations: Abdomen is soft. Musculoskeletal: Right lower leg: Edema (non pitting) present. Left lower leg: Edema (non pitting) present. Skin: General: Skin is warm and dry. Neurological: Mental Status: She is alert. Mental status is at baseline. ALLERGIES Allergen Reactions Amlodipine Swelling Lower leg edema. Aspirin Unknown Lisinopril Cough Requip [Ropinirole] Other: See Comments Very anxious Current Outpatient Medications Medication Sig clopidogrel (PLAVIX) 75 mg tablet Take 1 tablet by mouth once daily. atorvastatin (LIPITOR) 40 mg tablet Take 1 tablet by mouth once daily. budesonide (PULMICORT) 0.5 mg/2 mL nebulizer solution Use 2 mL via nebulizer twice daily. pramipexole (MIRAPEX) 1 mg tablet Take 1 tablet by mouth daily at bedtime. hydrALAZINE (APRESOLINE) 25 mg tablet Take 25 mg by mouth three times daily. albuterol HFA (VENTOLIN HFA) 90 mcg/actuation inhaler Inhale 2 Puffs as instructed every 4 hours as needed for wheezing/shortness of breath. May take 2 puffs prior to exercise multivitamin with folic acid (THERA, ONE DAILY) 400 mcg Take by mouth. ipratropium (ATROVENT) 0.02 % nebulizer solution USE 1 VIAL (2.5 ML) VIA NEBULIZER FOUR TIMES A DAY OVER 5 TO 15 MINUTES FOR WHEEZING OR SHORTNESS OF BREATH spironolactone (ALDACTONE) 25 mg tablet Take 1 tablet by mouth once daily. Take one additional 25 mg spironolactone for SBP greater than 150 losartan-hydroCHLOROthiazide (HYZAAR) 100-25 mg per tablet Take 1 tablet by mouth once daily. furosemide (LASIX) 40 mg tablet Take 40 mg by mouth once daily. carvedilol (COREG) 6.25 mg tablet Take 2 tablets by mouth twice daily. (Dr. Smith adjusting) Cholecalciferol, Vitamin D3, 1,000 unit cap Take 1 capsule by mouth once daily. albuterol (PROVENTIL) 2.5 mg /3 mL (0.083 %) nebulizer solution USE 1 VIAL (3 ML) VIA NEBULIZER FOUR TIMES A DAY OVER 5 TO 15 MINUTES FOR WHEEZING AND SHORTNESS OF BREATH predniSONE (DELTASONE) 20 mg tablet Take two daily for 5 days. doxycycline hyclate (VIBRAMYCIN) 100 mg capsule Take 1 capsule by mouth twice daily for 7 days. traZODone (DESYREL) 100 mg tablet Take 0.5 tablets by mouth daily at bedtime. for sleep benzonatate (TESSALON PERLES) 100 mg capsule Take 1-2 capsules by mouth three times daily as needed for cough. predniSONE (DELTASONE) 10 mg tablet Take 2 tabs po BID for 2 days then 1 tab po BID for 2 days then 1/2 tab po BID for 2 days then 1/2 tab daily for 2 days then stop (Patient not taking: No sig reported) No current facility-administered medications for this visit. PAST MEDICAL HISTORY Diagnosis Date Basal cell carcinoma Carotid stenosis CEA left CKD (chronic kidney disease) stage 3, GFR 30-59 ml/min ([facility]) 07/30/2018 COPD (chronic obstructive pulmonary disease) ([facility]) Diverticulosis of colon (without mention of hemorrhage) Diverticulosis Hypertension Rolly Smith MD Osteoporosis, unspecified Personal history of colonic polyps Colon polyps Restless legs syndrome (RLS) TIA (transient ischemic attack) 2008 Plavix Social History Tobacco Use Smoking status: Former Packs/day: 1.00 Years: 53.00 Pack years: 53.00 Types: Cigarettes Start date: 08/11/1963 Quit date: 10/04/2016 Years since quittin.9 Smokeless tobacco: Never Tobacco comments: 10-20 year period in 30-40s when quit. Vaping Use Vaping Use: Never used Substance Use Topics Alcohol use: Yes Comment: very seldom Drug use: No Component Latest Ref Rng & Units 01/24/2021 11/24/2021 01/28/2022 Protein, Total 6.3 - 8.0 g/dL 6.7 Albumin 3.9 - 4.9 g/dL 4.1 Calcium 8.5 - 10.2 mg/dL 8.8 9.0 Bilirubin, Total 0.2 - 1.3 mg/dL 0.3 Alkaline Phosphatase 34 - 123 U/L 69 AST 13 - 35 U/L 19 ALT 7 - 38 U/L 13 Glucose 74 - 99 mg/dL 117 (H) 125 (H) BUN 7 - 21 mg/dL 19 42 (H) Creatinine 0.58 - 0.96 mg/dL 1.17 (H) 1.39 (H) 1.40 (H) Sodium 136 - 144 mmol/L 132 (L) 140 Potassium 3.7 - 5.1 mmol/L 4.7 4.0 Chloride 97 - 105 mmol/L 98 104 CO2 22 - 30 mmol/L 23 23 Anion Gap 9 - 18 mmol/L 11 13 eGFR >=60 mL/min/1.73m 37 (L) 37 (L) WBC 3.70 - 11.00 k/uL 11.46 (H) 7.48 RBC 3.90 - 5.20 m/uL 3.84 (L) 3.88 (L) Hemoglobin 11.5 - 15.5 g/dL 12.4 12.3 Hematocrit 36.0 - 46.0 % 37.7 37.6 MCV 80.0 - 100.0 fL 98.2 96.9 MCH 26.0 - 34.0 pg 32.3 31.7 MCHC 30.5 - 36.0 g/dL 32.9 32.7 RDW-CV 11.5 - 15.0 % 13.2 14.1 Platelet Count 150 - 400 k/uL 145 (L) 169 MPV 9.0 - 12.7 fL 10.5 10.1 Absolute nRBC <0.01 k/uL <0.01 0.02 (H) eGFR- 54 eGFR-All Other Races 44 Vitamin D 25 Hydroxy 31.0 - 80.0 ng/mL 56.9 Creatinine Date Value Ref Range Status 03/30/2022 1.42 (H) 0.58 - 0.96 mg/dL Final 01/28/2022 1.40 (H) 0.58 - 0.96 mg/dL Final 11/24/2021 1.39 (H) 0.58 - 0.96 mg/dL Final 01/24/2021 1.17 (H) 0.58 - 0.96 mg/dL Final ASSESSMENT/PLAN: 1. COPD with exacerbation ([facility]) - ICD9: 491.21, ICD10: J44.1 (primary diagnosis) Exam most consistent with COPD exacerbation. We will treat as such. She will let us know if not feeling improved. Weight is stable. Ankle swelling was not pitting, consistent with lymphedema. Endorse compression socks. Compression pump if she is able to obtain this. Follow-up with vascular as needed. - ALBUTEROL SULFATE 2.5 MG/3 ML (0.083 %) SOLUTION FOR NEBULIZATION - PREDNISONE 20 MG TABLET - DOXYCYCLINE HYCLATE 100 MG CAPSULE - BENZONATATE 100 MG CAPSULE 2. 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) - ICD9: 496, ICD10: J44.9 - ALBUTEROL SULFATE 2.5 MG/3 ML (0.083 %) SOLUTION FOR NEBULIZATION 3. Insomnia, unspecified type - ICD9: 780.52, ICD10: G47.00 50 mg of trazodone was not helping with sleep, will increase to 100 mg nightly. - TRAZODONE 100 MG TABLET Follow-up with [facility], may need a sooner appointment. Keep routine follow up with MD Maddison Peters APRN.CNS Medical Decision Making: Problems: Moderate: Acute illness with systemic symptoms Risk: Moderate: Drug management Medical Decision Making Level: 4 - Moderate documented in this encounter [facility] 09-03-2022 Miscellaneous Notes If cardiology is managing her diuretics she should see them as well as or instead of with me today. Patient had an increased weight gain at beginning of week with increased edema, sob, and, and leg swelling. Patient was given lasix 40 mg twice daily for three days by Dr. Smith and weight and swelling came down. 179lbs-176.2lbs Patient continues to have some sob and requesting evaluation. TE from 08/30/2022 notes chest congestion and crackles. Appointment scheduled. Helena Quevedo RN documented in this encounter [facility] 08-30-2022 Miscellaneous Notes Spoke with patient. C/O nasal congestion, runny nose with clear to white drainage with PND x5-6 days. Denies headache, fever, or sore throat. She has a deep, non productive cough and rattling in the chest. She does have an at home COVID test available and has not used- she will test and report back if it is positive, although she is aware she is out of the window for Paxlovid. [facility] in [place] is preferred pharmacy. Angélica Franco LPN documented in this encounter [facility] 08-11-2022 Miscellaneous Notes See telephone encounter with EB Angélica Franco LPN documented in this encounter [facility] 08-09-2022 Miscellaneous Notes Spoke with Emerson regarding the results of her chest CT which shows more dense atelectasis in the right lung. No obvious endobronchial abnormality. Will hold on bronchoscopy. Additionally, she has a small 4 to 5 mm lung nodule that will require repeat CT in 1 year. documented in this encounter [facility] 08-06-2022 Note [facility] 08-06-2022 History of Present illness Narrative INSIGHT [facility] TELEPHONIC OUTREACH Provider Action/FYI: CDM: CKD, COPD 2nd Call, left a message to verify symptom status and needs. Instructed to call PCP with any symptom or condition changes Contact made with patient: No - Left message Guy my name is Alannah Hi RN your Computer Artist from the [facility] I am calling today for your bi-weekly check in. I am sorry I missed your call. I will reach out to you again tomorrow. (if the third call I will reach out to you again next week) Enter next patient outreach date for the following business day using the Track Pt Outreach. End outreach. Alannah Hi RN August 06, 2022 1:02 PM INSIGHT [facility] TELEPHONIC OUTREACH Provider Action/FYI: CDM: CKD, COPD Called Pt left a message to verify symptom status and needs. Instructed to call PCP with any symptom or condition changes Contact made with patient: No - Left message Guy my name is Alannah Hi RN your Computer Artist from the [facility] I am calling today for your bi-weekly check in. I am sorry I missed your call. I will reach out to you again tomorrow. (if the third call I will reach out to you again next week) Enter next patient outreach date for the following business day using the Track Pt Outreach. End outreach. Alannah Hi RN August 04, 2022 11:28 AM documented in this encounter [facility] 08-04-2022 Note [facility] 08-04-2022 Note [facility] 08-04-2022 History of Present illness Narrative Radiology Service Progress Note PATIENT NAME: Chanel Rousseau DATE OF SERVICE: August 04, 2022 TIME: 1:36 PM PATIENT IDENTITY VERIFICATION COMPLETED USING TWO (2) IDENTIFIERS: Name and Date of confirmed by patient verbally. FALL SCREENING: Has the patient had 2 falls in the last year or 1 fall with injury or currently using an Ambulatory Assistive Device (Walker, Cane, Wheelchair, Crutches, etc.)? No PATIENT GENDER DATA: Female. status: : No status: NO. PATIENT RELEVANT IMPLANT DATA REVIEWED: Not Applicable RADIOLOGY DEPARTMENT: CT; Exam(s) Completed: Chest PERIPHERAL IV DATA: Not applicable SIGNED BY: RT Ju(R) August 04, 2022 1:36 PM documented in this encounter [facility] 08-02-2022 Miscellaneous Notes Patient has been identified by name and date of : Yes, Provider [place] Date 08/02/22 Time 1:37p Patient phones for refill(s): Requested Prescriptions Pending Prescriptions Disp Refills clopidogrel (PLAVIX) 75 mg tablet 90 tablet 3 Sig: Take 1 tablet by mouth once daily. atorvastatin (LIPITOR) 40 mg tablet 90 tablet 3 Sig: Take 1 tablet by mouth once daily. Date of last office visit in primary care: 06/16/22 Last 2 Encounter Wt Readings: Date: Wt: 07/29/2022 77.6 kg (171 lb) 06/16/2022 78.5 kg (173 lb) Previous labs/tests for medication: Cholesterol: HDL Cholesterol (mg/dL) Date Value 10/22/2020 40 02/12/2019 35 HDL Cholesterol, Nonfasting (mg/dL) Date Value 05/29/2020 36 LDL Cholesterol (mg/dL) Date Value 10/22/2020 81 02/12/2019 98 LDL Cholesterol, Nonfasting (mg/dL) Date Value 05/29/2020 101 ALT (U/L) Date Value 01/28/2022 13 12/04/2020 14 Non HDL Cholesterol, Nonfasting (mg/dL) Date Value 05/29/2020 132 Please advise. Thank you. Hannah Monae LPN documented in this encounter [facility] 07-29-2022 Note [facility] 07-29-2022 History of Present illness Narrative Images from the original note were not included. . [facility] [place] Note Patient name: Chanel Rousseau PCP: Mady Dunn MD CC: Follow-up testing HPI: Chanel Rousseau 86 year old female former [id number] smoker, quitting in 2017 with PMH significant for CKD 3, HTN, TIA, PAD status post left CEA, COPD recently establishing with or, former patient of . At [facility], pulmonary function tests pertinent for progressive restrictive ventilatory defect, with last FVC 1.07 L 47%. Ordered chest imaging. CT pertinent for right middle lobe atelectasis with narrowing of the bronchus but no obvious endobronchial lesion, emphysema changes, no lymphadenopathy. Shortly after her chest CT she developed acute exacerbation of her obstructive lung disease with wheezing and cough productive of thick yellow sputum. Evaluated by her primary care physician, treated with steroids and doxycycline. Recent history also notable for a 2 cm soft tissue right renal mass, possible hemorrhagic or proteinaceous cyst, requiring further evaluation. Seen by urology, continued monitoring. Today she states she was doing well until two days ago when she started having sinus congestion and drainage. Increased SOB with cough productive of clear phlegm. No fevers, chills, chest pain. No audible wheezes. DATA: Labs: Component Ref Range & Units 3 mo ago Abs Eosin <0.46 k/uL 0.12 Imaging / Diagnostic Studies: DATE OF EXAM: May 17 2022 9:33AM [facility] 0541 - CT CHEST WO IVCON / PROCEDURE REASON: multiple diagnoses Comparison: Chest x-ray 04/26/2022 RESULT: Limitations: None. Lines, tubes, and devices: None. Lung parenchyma and airways: Narrowing of the bronchus to the right middle lobe and right middle lobe atelectasis. Linear scarring in the medial left upper lobe. Scarring and atelectasis in the medial right upper lobe. Emphysematous changes. Scattered air trapping with exhalation. No suspicious pulmonary nodules. Pleural space: No pleural effusion. No pleural thickening. Lower neck, lymph nodes, and mediastinum: Heterogeneous thyroid parenchyma. No lymphadenopathy in the supraclavicular, axillary, mediastinal, or hilar regions. Heart, pericardium, and thoracic vessels: The thoracic aorta and main pulmonary artery are normal in caliber. The cardiac chambers are normal in size. Coronary artery atherosclerotic calcifications are noted, although the study is not optimized for coronary assessment. No pericardial effusion or thickening. Bones and soft tissues: No destructive bone lesion. Chest wall is unremarkable. Upper abdomen: No acute abnormality in the imaged upper abdomen. Right renal cyst. IMPRESSION: 1. Narrowing of the right middle lobe bronchus and right middle lobe atelectasis. This could be further evaluated by bronchoscopy. 2. Emphysematous changes 3. No thoracic lymphadenopathy I personally reviewed the images and agree with the above assessment PAST MEDICAL HISTORY Diagnosis Date Basal cell carcinoma Carotid stenosis CEA left CKD (chronic kidney disease) stage 3, GFR 30-59 ml/min ([facility]) 07/30/2018 COPD (chronic obstructive pulmonary disease) ([facility]) Diverticulosis of colon (without mention of hemorrhage) Diverticulosis Hypertension Rolly Smith MD Osteoporosis, unspecified Personal history of colonic polyps Colon polyps Restless legs syndrome (RLS) TIA (transient ischemic attack) 2008 Plavix ALLERGIES Allergen Reactions Amlodipine Swelling Lower leg edema. Aspirin Unknown Lisinopril Cough Requip [Ropinirole] Other: See Comments Very anxious pramipexole (MIRAPEX) 1 mg tablet Take 1 tablet by mouth daily at bedtime. hydrALAZINE (APRESOLINE) 25 mg tablet Take 25 mg by mouth three times daily. albuterol (PROVENTIL) 2.5 mg /3 mL (0.083 %) nebulizer solution USE 1 VIAL (3 ML) VIA NEBULIZER FOUR TIMES A DAY OVER 5 TO 15 MINUTES FOR WHEEZING AND SHORTNESS OF BREATH albuterol HFA (VENTOLIN HFA) 90 mcg/actuation inhaler Inhale 2 Puffs as instructed every 4 hours as needed for wheezing/shortness of breath. May take 2 puffs prior to exercise traZODone (DESYREL) 50 mg tablet Take 1 tablet by mouth daily at bedtime. for sleep multivitamin with folic acid (THERA, ONE DAILY) 400 mcg Take by mouth. ipratropium (ATROVENT) 0.02 % nebulizer solution USE 1 VIAL (2.5 ML) VIA NEBULIZER FOUR TIMES A DAY OVER 5 TO 15 MINUTES FOR WHEEZING OR SHORTNESS OF BREATH spironolactone (ALDACTONE) 25 mg tablet Take 1 tablet by mouth once daily. Take one additional 25 mg spironolactone for SBP greater than 150 losartan-hydroCHLOROthiazide (HYZAAR) 100-25 mg per tablet Take 1 tablet by mouth once daily. clopidogrel (PLAVIX) 75 mg tablet Take 1 tablet by mouth once daily. atorvastatin (LIPITOR) 40 mg tablet Take 1 tablet by mouth once daily. furosemide (LASIX) 40 mg tablet Take 40 mg by mouth once daily. carvedilol (COREG) 6.25 mg tablet Take 2 tablets by mouth twice daily. (Dr. Smith adjusting) Cholecalciferol, Vitamin D3, 1,000 unit cap Take 1 capsule by mouth once daily. budesonide (PULMICORT) 0.5 mg/2 mL nebulizer solution Use 2 mL via nebulizer twice daily. doxycycline hyclate (VIBRAMYCIN) 100 mg capsule Take 1 capsule by mouth twice daily for 7 days. predniSONE (DELTASONE) 20 mg tablet Take two daily for 5 days. predniSONE (DELTASONE) 10 mg tablet Take 2 tabs po BID for 2 days then 1 tab po BID for 2 days then 1/2 tab po BID for 2 days then 1/2 tab daily for 2 days then stop (Patient not taking: Reported on 07/29/2022) Social History Tobacco Use Smoking status: Former Packs/day: 1.00 Years: 53.00 Pack years: 53.00 Types: Cigarettes Start date: 08/11/1963 Quit date: 10/04/2016 Years since quittin.8 Smokeless tobacco: Never Tobacco comments: 10-20 year period in 30-40s when quit. Vaping Use Vaping Use: Never used Substance Use Topics Alcohol use: Yes Comment: very seldom Drug use: No PMH, Social history, family history and surgical history reviewed and updated in EMR REVIEW OF SYSTEMS: CONSTITUTIONAL: No fevers, chills, nightsweats, unintended weight loss HEENT: Denies headache. Positive nasal congestion/sinus symptoms CARDIOVASCULAR: No chest pain, palpitations, orthopnea. Chronic edema PULM: See HPI INTEGUMENTARY: No new skin changes or rashes PHYSICAL EXAMINATION: BP 124/68 Pulse 70 Wt 171 lb (77.6kg) SpO2 96% General Appearance: Obese elderly female, NAD Skin: Skin color, texture, turgor normal, no suspicious rashes or lesions. Head: Normocephalic, no masses, lesions, tenderness or abnormalities. Eyes: Sclera, conjunctiva normal Oropharynx: No oral lesions or thrush. Neck: No JVD, no masses, no adenopathy Lungs: Not labored, normal to percussion, faint bilateral end expiratory wheezes Heart: Regular rate and rhythm, no murmurs gallops Extremities: Chronic edema, no clubbing Assessment/Plan: 1. COPD, chronic bronchitis with exacerbation -Doxycycline and prednisone -Continue current inhaled therapy 2. Opacity on chest imaging -Suspect chronic scar/atelectasis -Update imaging. If persistent, will need bronchoscopy 3. Former cigarette smoker -Former 50 pack year smoker, quitting in 2017 -Does not qualify for lung cancer screening program based on age > 80 4. Atelectasis -See #2 Dora Kong MD [facility] [place] documented in this encounter [facility] 07-26-2022 Miscellaneous Notes Patient has been identified by name and date of : No Patient phones for refill(s): Requested Prescriptions Pending Prescriptions Disp Refills pramipexole (MIRAPEX) 1 mg tablet 90 tablet 3 Sig: Take 1 tablet by mouth daily at bedtime. Date of last office visit in primary care: 06/16/2022 Last 2 Encounter Wt Readings: Date: Wt: 06/16/2022 78.5 kg (173 lb) 04/28/2022 79.4 kg (175 lb) Previous labs/tests for medication: Not applicable Please advise. Thank you. Lamar Hudson LPN documented in this encounter [facility] 06-29-2022 History of Present illness Narrative INSIGHT [facility] TELEPHONIC OUTREACH Provider Action/FYI: CDM: CKD/ COPD 2nd call left a message to verify symptoms or needs. Instructed to call PCP with any changes in condition Contact made with patient: No - Left message Guy my name is Alannah Hi RN your Computer Artist from the [facility] I am calling today for your bi-weekly check in. I am sorry I missed your call. I will reach out to you again tomorrow. (if the third call I will reach out to you again next week) Enter next patient outreach date for the following business day using the Track Pt Outreach. End outreach. Alannah Hi RN June 29, 2022 5:30 PM INSIGHT [facility] TELEPHONIC OUTREACH Provider Action/FYI: CDM: COPD/ CKD Left a message to verify symptom status and needs. Contact made with patient: No - Left message Hello my name is Alannah Hi RN your Computer Artist from the [facility] I am calling today for your bi-weekly check in. I am sorry I missed your call. I will reach out to you again tomorrow. (if the third call I will reach out to you again next week) Enter next patient outreach date for the following business day using the Track Pt Outreach. End outreach. Alannah Hi RN June 28, 2022 11:19 AM documented in this encounter [facility] 06-16-2022 History of Present illness Narrative SUBJECTIVE Chanel Rousseau is a 86 year old female here today for acute concerns. Chief Complaint Patient presents with: Cough: with wheezing for about 2 days HPI Chanel Rousseau is an 86 year old female who presents with an illness characterized by productive cough with sputum described as yellow, thick, and wheezing. Symptoms began 3 day(s) ago and are constant since that time, not improving. OTC meds/remedies that patient has tried: coricidin and tea with honey. She has a history of COPD, no changes in her usual amount of shortness of breath and no chest pain or chest tightness. No sick contacts and no contact with anyone with covid. Using albuterol, 3-4 times along with her Pulmicort and Atrovent. Has taken steroids in the past. Fever (?100.4F): No or Chills: No Cough: Yes Difficulty breathing: No Fatigue: No Muscle aches: No Headache: No New loss of smell or taste: No Sore throat: No Nasal congestion: No or Rhinorrhea: No Nausea: No or Vomiting: No Diarrhea: No Exposures: Sick contacts? No Contact with anyone confirmed or probable COVID-19 infection in the last 14 days? No Family with confirmed COVID-19 infection? No Past history is significant for COPD and tobacco use. ALLERGIES Allergen Reactions Amlodipine Swelling Lower leg edema. Aspirin Unknown Lisinopril Cough Requip [Ropinirole] Other: See Comments Very anxious Tobacco Use: 1 packs/day, for 53 years. Quit 10/04/2016. Types: Cigarettes Her medications were reviewed today and her list is now up to date. Medications Current Outpatient Medications Medication Sig hydrALAZINE (APRESOLINE) 25 mg tablet Take 25 mg by mouth three times daily. albuterol (PROVENTIL) 2.5 mg /3 mL (0.083 %) nebulizer solution USE 1 VIAL (3 ML) VIA NEBULIZER FOUR TIMES A DAY OVER 5 TO 15 MINUTES FOR WHEEZING AND SHORTNESS OF BREATH budesonide (PULMICORT) 0.5 mg/2 mL nebulizer solution Use 2 mL via nebulizer twice daily. albuterol HFA (VENTOLIN HFA) 90 mcg/actuation inhaler Inhale 2 Puffs as instructed every 4 hours as needed for wheezing/shortness of breath. May take 2 puffs prior to exercise traZODone (DESYREL) 50 mg tablet Take 1 tablet by mouth daily at bedtime. for sleep multivitamin with folic acid (THERA, ONE DAILY) 400 mcg Take by mouth. ipratropium (ATROVENT) 0.02 % nebulizer solution USE 1 VIAL (2.5 ML) VIA NEBULIZER FOUR TIMES A DAY OVER 5 TO 15 MINUTES FOR WHEEZING OR SHORTNESS OF BREATH spironolactone (ALDACTONE) 25 mg tablet Take 1 tablet by mouth once daily. Take one additional 25 mg spironolactone for SBP greater than 150 losartan-hydroCHLOROthiazide (HYZAAR) 100-25 mg per tablet Take 1 tablet by mouth once daily. pramipexole (MIRAPEX) 1 mg tablet Take 1 tablet by mouth daily at bedtime. clopidogrel (PLAVIX) 75 mg tablet Take 1 tablet by mouth once daily. atorvastatin (LIPITOR) 40 mg tablet Take 1 tablet by mouth once daily. furosemide (LASIX) 40 mg tablet Take 40 mg by mouth once daily. carvedilol (COREG) 6.25 mg tablet Take 2 tablets by mouth twice daily. (Dr. Smith adjusting) Cholecalciferol, Vitamin D3, 1,000 unit cap Take 1 capsule by mouth once daily. doxycycline (VIBRA-TABS) 100 mg tablet Take 1 tablet by mouth twice daily for 7 days. predniSONE (DELTASONE) 10 mg tablet Take 2 tabs po BID for 2 days then 1 tab po BID for 2 days then 1/2 tab po BID for 2 days then 1/2 tab daily for 2 days then stop No current facility-administered medications for this visit. ALLERGIES Allergen Reactions Amlodipine Swelling Lower leg edema. Aspirin Unknown Lisinopril Cough Requip [Ropinirole] Other: See Comments Very anxious ACTIVE PROBLEM LIST Pad (Peripheral Artery Disease) ([facility]) - 11/11/2021 Carotid Artery Stenosis - 01/23/2021 Tia (Transient Ischemic Attack) - 05/26/2020 Comment: history of TIA, remote Obesity, Class I, Bmi 30-34.9 - 07/30/2018 Ckd (Chronic Kidney Disease) Stage 3, Gfr 30-59 Ml/Min ([facility]) - 07/30/2018 Bifascicular Block - 10/11/2016 Herpes Zoster Without Complication - 02/28/2016 Mixed Simple and Mucopurulent Chronic Bronchitis ([facility]) - 01/10/2016 Mixed Hyperlipidemia - 01/10/2016 Essential Hypertension - 04/07/2015 Calculi, 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 Basilio @ [facility]- Cystopscopy, left retrograde pyelogram, left ureteroscopy, basked extraction of ureteral tissue Nonspecific Abnormal Finding in Stool Contents - 03/31/2012 Acute Gastritis Without Mention of Hemorrhage - 03/31/2012 Vitamin D Deficiency - 03/06/2012 Hyperlipidemia - 04/21/2011 Hypertension - 04/21/2011 S/P Unilateral Salpingo-Oophorectomy - 02/18/2011 S/P Jenny (Total Abdominal Hysterectomy) - 02/18/2011 Copd (Chronic Obstructive Pulmonary Disease) ([facility]) - 08/24/2010 Htn (Hypertension), Benign - 08/12/2009 Hypokalemia - 08/12/2009 Brachial Neuritis Or Radiculitis NOS - 05/24/2008 Diverticulosis of Colon (Without Mention of Hemorrhage) Comment: Diverticulosis Personal History of Colonic Polyps Comment: Colon polyps Restless Legs Syndrome (Rls) Peripheral Enthesopathies and Allied Syndromes - 05/20/2005 Osteoporosis, Unspecified - 05/20/2005 restless leg syndrome - 05/20/2005 Social History Tobacco Use Smoking status: Former Packs/day: 1.00 Years: 53.00 Pack years: 53.00 Types: Cigarettes Start date: 08/11/1963 Quit date: 10/04/2016 Years since quittin.7 Smokeless tobacco: Never Tobacco comments: 10-20 year period in 30-40s when quit. Vaping Use Vaping Use: Never used Substance Use Topics Alcohol use: Yes Comment: very seldom Drug use: No Review of Systems Respiratory: Positive for cough, shortness of breath and wheezing. Negative for apnea, choking, chest tightness and stridor. Cardiovascular: Negative. OBJECTIVE BP 138/50 Pulse 82 Temp (Src) 96.2 (Left Tympanic) Resp 20 Wt 173 lb (78.5kg) SpO2 98% Physical Exam Vitals and nursing note reviewed. Constitutional: General: She is awake. She is not in acute distress. Appearance: She is not ill-appearing, toxic-appearing or diaphoretic. HENT: Head: Normocephalic. Cardiovascular: Rate and Rhythm: Normal rate and regular rhythm. Heart sounds: Normal heart sounds. Pulmonary: Effort: Pulmonary effort is normal. No accessory muscle usage, prolonged expiration or respiratory distress. Breath sounds: Examination of the right-middle field reveals wheezing. Examination of the right-lower field reveals decreased breath sounds and wheezing. Examination of the left-lower field reveals decreased breath sounds and wheezing. Decreased breath sounds and wheezing present. No rhonchi or rales. Skin: General: Skin is warm and dry. Capillary Refill: Capillary refill takes less than 2 seconds. Neurological: General: No focal deficit present. Mental Status: She is alert and oriented to person, place, and time. Mental status is at baseline. Psychiatric: Attention and Perception: Attention normal. Mood and Affect: Mood normal. Speech: Speech normal. Behavior: Behavior normal. Behavior is cooperative. ASSESSMENT/PLAN: 1. Chronic obstructive pulmonary disease with acute exacerbation (HCC) - ICD9: 491.21, ICD10: J44.1 Will start a steroid taper, doxycycline to cover for possible bacterial cause. Continue with nebulizer treatments. Contact pulmonary if worsening or not improving. Drink plenty of water each day. Nasal saline rinses for congestion. Salt water gargles or cough drops for sore throat. Perform cough and deep breathing exercises multiple times a day as tolerated. Use tylenol as needed, avoid NSAIDs due to kidney function and on steroid taper. Seek medical evaluation if symptoms worsen, if you develop chest pain, or shortness of breath at rest. - DOXYCYCLINE HYCLATE 100 MG TABLET - PREDNISONE 10 MG TABLET Portions of this note have been entered by ancillary staff. I have reviewed and when necessary edited, so that they are an adequate record of my encounter with this patient Please note that parts of this document were created using [employer] and therefore may contain grammatical errors. Patient verbalizes understanding of instructions from today's visit and in agreement with treatment plan. Questions answered. Agrees to call the office if questions, concerns or issues with acute symptoms not improving or if they worsen. Return if symptoms worsen or fail to improve, for Keep next scheduled appointment.. Rosaura Suárez APRN-CORINNA documented in this encounter [facility] 06-16-2022 Miscellaneous Notes Patient scheduled with Rosaura Suárez 06/16/22 to evaluate cough. Spoke to patient. She complains of some nasal congestion and clear nasal drainage. I am coughing all night long . Denies fever, myalgias or sore throat. She does not have a home covid test available. No provider in office today in pulmonary, but advised patient I would route to PCPs office to see if they advise visit vs. express care. Angélica Franco LPN Patient called. Verified name and date of . Patient would like to report having a hoarse cough with some yellow phlegm, denies fever- symptoms worse at night x two days. Please review and advise. Tiera Doyle LPN documented in this encounter [facility] 05-28-2022 History of Present illness Narrative [facility] TELEPHONIC OUTREACH Provider Action/FYI: Called Pt, left a message to verify COPD/ CKD symptom status and needs Contact made with patient: No - Left message Guy my name is Alannah Hi RN your Computer Artist from the [facility] I am calling today for your bi-weekly check in. I am sorry I missed your call. I will reach out to you again tomorrow. (if the third call I will reach out to you again next week) Enter next patient outreach date for the following business day using the Track Pt Outreach. End outreach. Alannah Hi RN May 28, 2022 4:02 PM [facility] TELEPHONIC OUTREACH Provider Action/FYI: Call to Pt left a message to verify COPD/ CKD symptom status and needs Contact made with patient: No - Left message Guy my name is Alannah Hi RN your Computer Artist from the [facility] I am calling today for your bi-weekly check in. I am sorry I missed your call. I will reach out to you again tomorrow. (if the third call I will reach out to you again next week) Enter next patient outreach date for the following business day using the Track Pt Outreach. End outreach. Alannah Hi RN May 26, 2022 2:40 PM documented in this encounter [facility] 05-17-2022 History of Present illness Narrative Radiology Service Progress Note PATIENT NAME: Chanel Rousseau DATE OF SERVICE: May 17, 2022 TIME: 10:11 AM PATIENT IDENTITY VERIFICATION COMPLETED USING TWO (2) IDENTIFIERS: Name and Date of confirmed by patient verbally. FALL SCREENING: Has the patient had 2 falls in the last year or 1 fall with injury or currently using an Ambulatory Assistive Device (Walker, Cane, Wheelchair, Crutches, etc.)? No PATIENT GENDER DATA: Female. status: : No status: NO. PATIENT RELEVANT IMPLANT DATA REVIEWED: Yes RADIOLOGY DEPARTMENT: CT; Exam(s) Completed: Chest PERIPHERAL IV DATA: Not applicable SIGNED BY: RT Ju(R) May 17, 2022 10:11 AM documented in this encounter [facility] 04-30-2022 History of Present illness Narrative [facility] TELEPHONIC OUTREACH Provider Action/FYI: Call to Pt left a message to verify COPD/ CKD symptom status and needs Contact made with patient: No - Left message Guy my name is Alannah Hi RN your Computer Artist from the [facility] I am calling today for your bi-weekly check in. I am sorry I missed your call. I will reach out to you again tomorrow. (if the third call I will reach out to you again next week) Enter next patient outreach date for the following business day using the Track Pt Outreach. End outreach. No - Left message Alannah Hi RN April 30, 2022 2:09 PM documented in this encounter [facility] 04-28-2022 Note HNO ID: [id number] Author: Spencer Boone MD Service: ? Author Type: Physician Type: Progress Notes Filed: 04/28/2022 10:17 AM Note Text: ESTABLISHED PATIENT VISIT HPI Chanel Rousseau is a 86 year old female who presents for follow-up of a right renal mass. She had a CT scan on December 08, [address] She has a prior CT dating back to February [address] from April 21, 2022: IMPRESSION: 2 cm right renal mass is indeterminate but does not show obvious contrast enhancement and could be a complex cyst. This can be further evaluated by MRI, or followed up periodically with ultrasound. Patient Entered Questionnaires PROMIS Global Health PROMIS Global Health Scale 02/01/2022 04/21/2022 04/21/2022 Physical Health Percentile 41 % 22 % 22 % Mental Health Percentile 63 % 63 % 63 % Percentiles provide an indication of how the patient's score ranks in relation to the general population. Higher percentile rankings indicate better function/quality of life. 50th percentile is the average of the general population and indicates half of respondents had a worse score. Creatinine Date Value Ref Range Status 03/30/2022 1.42 (H) 0.58 - 0.96 mg/dL Final No results found for: PSA Color (no units) Date Value 12/03/2015 Yellow Clarity (no units) Date Value 12/03/2015 Cloudy Glucose, Urine (mg/dL) Date Value 12/03/2015 Negative Bilirubin, Urine (no units) Date Value 12/03/2015 Negative Ketones, Urine (no units) Date Value 12/03/2015 Negative Specific [place], Ur (no units) Date Value 12/03/2015 1.020 Hemoglobin/Blood,Ur ( ) Date Value 12/03/2015 Negative pH, Urine (no units) Date Value 12/03/2015 6.0 Protein, Urine (mg/dL) Date Value 12/03/2015 Negative Urobilinogen (no units) Date Value 12/03/2015 Normal Nitrites (no units) Date Value 12/03/2015 Negative Leukest (no units) Date Value 12/03/2015 Trace 24HR Urine Studies: No results for input(s): LUPH, LUCAL, LUCIT, LUOXA, LUURIC, LUVOL, LSCAO, LSCAP, LSURIC, LUCL, MOHAMUD, ANISHA, LUUREA, LUAM, LUMAG, LUPHOS, LUPCR, LUCREA, LUCRKBW, LUCAKBW, LUCACREA, LUCREACL, LWK, LUSUL in the last 44108 hours. REVIEW OF SYSTEMS Review of Systems Constitutional: Negative for chills, fatigue, fever and unexpected weight change. HENT: Negative for sore throat and trouble swallowing. Eyes: Negative for visual disturbance. Respiratory: Negative for shortness of breath and wheezing. Cardiovascular: Negative for chest pain and leg swelling. Gastrointestinal: Negative for abdominal pain, blood in stool, diarrhea and nausea. Genitourinary: Negative for difficulty urinating, dysuria, enuresis, flank pain, frequency, hematuria and urgency. Musculoskeletal: Negative for back pain. Skin: Negative for rash. Neurological: Negative for dizziness and headaches. Hematological: Does not bruise/bleed easily. Psychiatric/Behavioral: Negative for behavioral problems and confusion. Review of system, history including past medical history, surgical history, family history and social history reviewed and confirmed by me. HISTORIES PAST MEDICAL HISTORY Diagnosis Date Basal cell carcinoma Carotid stenosis CEA left CKD (chronic kidney disease) stage 3, GFR 30-59 ml/min (HCC) 07/30/2018 COPD (chronic obstructive pulmonary disease) ([facility]) Diverticulosis of colon (without mention of hemorrhage) Diverticulosis Hypertension Rolly Smith MD Osteoporosis, unspecified Personal history of colonic polyps Colon polyps Restless legs syndrome (RLS) TIA (transient ischemic attack) 2008 Plavix PAST SURGICAL HISTORY Procedure Laterality Date CAROTID ENDARTERECTOMY Left 01/23/2021 COLONOSCOPY FLX DX W/COLLJ SPEC WHEN PFRMD 03/25/2004 Colonoscopy CYSTOSCOPY 06/02/2012 left ureteral calculi ESOPHAGOGASTRODUODENOSCOPY TRANSORAL DIAGNOSTIC 03/25/2004 EGD PAST SURGICAL HISTORY OF 04/15/2004 right inferior parathyroidectomy TOTAL ABDOMINAL HYSTERECT W/WO RMVL TUBE OVARY 05/18/1971 Hysterectomy, JENNY, LSO carcinoma insitu FAMILY HISTORY Problem Relation Age of Onset Diabetes Mother Heart Mother None Father hx unknown Heart Brother Diabetes Brother Cancer Brother Lung, 1/2 brother. Asthma No Family History COPD No Family History Emphysema No Family History SOCIAL HISTORY Social History Tobacco Use Smoking status: Former Packs/day: 1.00 Years: 53.00 Pack years: 53.00 Types: Cigarettes Start date: 08/11/1963 Quit date: 10/04/2016 Years since quittin.5 Smokeless tobacco: Never Tobacco comments: 10-20 year period in 30-40s when quit. Vaping Use Vaping Use: Never used Substance Use Topics Alcohol use: Yes Comment: very seldom Drug use: No MEDICATIONS: albuterol (PROVENTIL) 2.5 mg /3 mL (0.083 %) nebulizer solution USE 1 VIAL (3 ML) VIA NEBULIZER FOUR TIMES A DAY OVER 5 TO 15 MINUTES FOR WHEEZING AND SHORTNESS OF BREATH budesonide (PULMICORT) 0.5 (more content not included)... [facility] 04-28-2022 History of Present illness Narrative ESTABLISHED PATIENT VISIT HPI Chanel Rousseau is a 86 year old female who presents for follow-up of a right renal mass. She had a CT scan on December 08, 2021 She has a prior CT dating back to February [address] from April 21, 2022: IMPRESSION: 2 cm right renal mass is indeterminate but does not show obvious contrast enhancement and could be a complex cyst. This can be further evaluated by MRI, or followed up periodically with ultrasound. Patient Entered Questionnaires PROMIS Global Health PROMIS Global Health Scale 02/01/2022 04/21/2022 04/21/2022 Physical Health Percentile 41 % 22 % 22 % Mental Health Percentile 63 % 63 % 63 % Percentiles provide an indication of how the patient's score ranks in relation to the general population. Higher percentile rankings indicate better function/quality of life. 50th percentile is the average of the general population and indicates half of respondents had a worse score. Creatinine Date Value Ref Range Status 03/30/2022 1.42 (H) 0.58 - 0.96 mg/dL Final No results found for: PSA Color (no units) Date Value 12/03/2015 Yellow Clarity (no units) Date Value 12/03/2015 Cloudy Glucose, Urine (mg/dL) Date Value 12/03/2015 Negative Bilirubin, Urine (no units) Date Value 12/03/2015 Negative Ketones, Urine (no units) Date Value 12/03/2015 Negative Specific [place], Ur (no units) Date Value 12/03/2015 1.020 Hemoglobin/Blood,Ur ( ) Date Value 12/03/2015 Negative pH, Urine (no units) Date Value 12/03/2015 6.0 Protein, Urine (mg/dL) Date Value 12/03/2015 Negative Urobilinogen (no units) Date Value 12/03/2015 Normal Nitrites (no units) Date Value 12/03/2015 Negative Leukest (no units) Date Value 12/03/2015 Trace 24HR Urine Studies: No results for input(s): LUPH, LUCAL, LUCIT, LUOXA, LUURIC, LUVOL, LSCAO, LSCAP, LSURIC, LUCL, MOHAMUD, ANISHA, LUUREA, LUAM, LUMAG, LUPHOS, LUPCR, LUCREA, LUCRKBW, LUCAKBW, LUCACREA, LUCREACL, LWK, LUSUL in the last 57509 hours. REVIEW OF SYSTEMS Review of Systems Constitutional: Negative for chills, fatigue, fever and unexpected weight change. HENT: Negative for sore throat and trouble swallowing. Eyes: Negative for visual disturbance. Respiratory: Negative for shortness of breath and wheezing. Cardiovascular: Negative for chest pain and leg swelling. Gastrointestinal: Negative for abdominal pain, blood in stool, diarrhea and nausea. Genitourinary: Negative for difficulty urinating, dysuria, enuresis, flank pain, frequency, hematuria and urgency. Musculoskeletal: Negative for back pain. Skin: Negative for rash. Neurological: Negative for dizziness and headaches. Hematological: Does not bruise/bleed easily. Psychiatric/Behavioral: Negative for behavioral problems and confusion. Review of system, history including past medical history, surgical history, family history and social history reviewed and confirmed by me. HISTORIES PAST MEDICAL HISTORY Diagnosis Date Basal cell carcinoma Carotid stenosis CEA left CKD (chronic kidney disease) stage 3, GFR 30-59 ml/min ([facility]) 07/30/2018 COPD (chronic obstructive pulmonary disease) ([facility]) Diverticulosis of colon (without mention of hemorrhage) Diverticulosis Hypertension Rolly Smith MD Osteoporosis, unspecified Personal history of colonic polyps Colon polyps Restless legs syndrome (RLS) TIA (transient ischemic attack) 2009 Plavix PAST SURGICAL HISTORY Procedure Laterality Date CAROTID ENDARTERECTOMY Left 01/23/2021 COLONOSCOPY FLX DX W/COLLJ SPEC WHEN PFRMD 03/25/2004 Colonoscopy CYSTOSCOPY 06/02/2012 left ureteral calculi ESOPHAGOGASTRODUODENOSCOPY TRANSORAL DIAGNOSTIC 03/25/2004 EGD PAST SURGICAL HISTORY OF 04/15/2004 right inferior parathyroidectomy TOTAL ABDOMINAL HYSTERECT W/WO RMVL TUBE OVARY 05/18/1971 Hysterectomy, JENNY, LSO carcinoma insitu FAMILY HISTORY Problem Relation Age of Onset Diabetes Mother Heart Mother None Father hx unknown Heart Brother Diabetes Brother Cancer Brother Lung, 1/2 brother. Asthma No Family History COPD No Family History Emphysema No Family History SOCIAL HISTORY Social History Tobacco Use Smoking status: Former Packs/day: 1.00 Years: 53.00 Pack years: 53.00 Types: Cigarettes Start date: 08/11/1963 Quit date: 10/04/2016 Years since quittin.5 Smokeless tobacco: Never Tobacco comments: 10-20 year period in 30-40s when quit. Vaping Use Vaping Use: Never used Substance Use Topics Alcohol use: Yes Comment: very seldom Drug use: No MEDICATIONS: albuterol (PROVENTIL) 2.5 mg /3 mL (0.083 %) nebulizer solution USE 1 VIAL (3 ML) VIA NEBULIZER FOUR TIMES A DAY OVER 5 TO 15 MINUTES FOR WHEEZING AND SHORTNESS OF BREATH budesonide (PULMICORT) 0.5 mg/2 mL nebulizer solution Use 2 mL via nebulizer twice daily. albuterol HFA (VENTOLIN HFA) 90 mcg/actuation inhaler Inhale 2 Puffs as instructed every 4 hours as needed for wheezing/shortness of breath. May take 2 puffs prior to exercise traZODone (DESYREL) 50 mg tablet Take 1 tablet by mouth daily at bedtime. for sleep multivitamin with folic acid (THERA, ONE DAILY) 400 mcg Take by mouth. ipratropium (ATROVENT) 0.02 % nebulizer solution USE 1 VIAL (2.5 ML) VIA NEBULIZER FOUR TIMES A DAY OVER 5 TO 15 MINUTES FOR WHEEZING OR SHORTNESS OF BREATH spironolactone (ALDACTONE) 25 mg tablet Take 1 tablet by mouth once daily. Take one additional 25 mg spironolactone for SBP greater than 150 losartan-hydroCHLOROthiazide (HYZAAR) 100-25 mg per tablet Take 1 tablet by mouth once daily. pramipexole (MIRAPEX) 1 mg tablet Take 1 tablet by mouth daily at bedtime. clopidogrel (PLAVIX) 75 mg tablet Take 1 tablet by mouth once daily. atorvastatin (LIPITOR) 40 mg tablet Take 1 tablet by mouth once daily. furosemide (LASIX) 40 mg tablet Take 40 mg by mouth once daily. carvedilol (COREG) 6.25 mg tablet Take 2 tablets by mouth twice daily. (Dr. Smith adjusting) Cholecalciferol, Vitamin D3, 1,000 unit cap Take 1 capsule by mouth once daily. PHYSICAL EXAMINATION General appearance: Well appearing, alert, in no acute distress, and well-hydrated, well nourished Reviewed CT findings with patient and family ASSESSMENT/PLAN: 1. Renal mass - ICD9: 593.9, ICD10: N28.89 (primary diagnosis) - US KIDNEY/BLADDER 2. 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 Technically class II, needs followed, will check ultrasound and 6 to 8 months If stable can cancel follow-up and arrange additional ultrasound imaging in the future Medical Decision Making: Medical Decision Making Level: 1 - N/A documented in this encounter [facility] 04-26-2022 History of Present illness Narrative Images from the original note were not included. . Respiratory [place] Note Patient name: Chnael Rousseau PCP: Mady Dunn MD CC: follow-up PFTs HPI: Chanel Rousseau 86 year old female former 50 pack year smoker with PMH significant for PAD (left CEA), CKD 3, HTN, TIA and COPD former patient of Dr. Vera. Currently being evaluated for a renal mass (2 cm right renal mass is indeterminate but does not show obvious contrast enhancement and could be a complex cyst. This can be further evaluated by MRI, or followed up periodically with ultrasound). COPD treated with variety of inhalers, including Breo Ellipta (unable to afford), Anoro Ellipta (not effective) so changed to nebulized budesonide and albuterol/ipratropium bromide. Has persistent cough and chest congestion. No wheezing. RAPHAEL and persistent LE edema. PFTs have shown progressive restriction since July. She has gained some weight but not a significant amount. DATA: COPD Assessment Test I never cough 0 1 2 3 4 5 I cough all the time; Score 2 I have no phlegm 0 1 2 3 4 5 My chest is completely full of phlegm; Score 2 My chest does not feel tight at all 0 1 2 3 4 5 My chest chest feels very tight; Score 1 When I walk up a hill or one flight of stairs I am not breathless 0 1 2 3 4 5 When I walk up a hill or one flight or stairs I am very breathless; Score 3 I am not limited doing any activities at home 0 1 2 3 4 5 I am very limited doing activities at home; Score 3 I am confident leaving my home despite my lung condition 0 1 2 3 4 5 I am not at all confident leaving my home because of my lung condition; Score 1 I sleep soundly 0 1 2 3 4 5 don't sleep soundly because of my lungs; Score 1 I have lots of energy 0 1 2 3 4 5 I have no energy at all; Score 2 Total Score: 15 PFT 03/2022: Review of PFTs shows severe restriction Imaging / Diagnostic Studies: No recent chest imaging PAST MEDICAL HISTORY Diagnosis Date Basal cell carcinoma Carotid stenosis CEA left CKD (chronic kidney disease) stage 3, GFR 30-59 ml/min ([facility]) 07/30/2018 COPD (chronic obstructive pulmonary disease) ([facility]) Diverticulosis of colon (without mention of hemorrhage) Diverticulosis Hypertension Rolly Smith MD Osteoporosis, unspecified Personal history of colonic polyps Colon polyps Restless legs syndrome (RLS) TIA (transient ischemic attack) 2008 Plavix ALLERGIES Allergen Reactions Amlodipine Swelling Lower leg edema. Aspirin Unknown Lisinopril Cough Requip [Ropinirole] Other: See Comments Very anxious albuterol (PROVENTIL) 2.5 mg /3 mL (0.083 %) nebulizer solution USE 1 VIAL (3 ML) VIA NEBULIZER FOUR TIMES A DAY OVER 5 TO 15 MINUTES FOR WHEEZING AND SHORTNESS OF BREATH budesonide (PULMICORT) 0.5 mg/2 mL nebulizer solution Use 2 mL via nebulizer twice daily. albuterol HFA (VENTOLIN HFA) 90 mcg/actuation inhaler Inhale 2 Puffs as instructed every 4 hours as needed for wheezing/shortness of breath. May take 2 puffs prior to exercise traZODone (DESYREL) 50 mg tablet Take 1 tablet by mouth daily at bedtime. for sleep multivitamin with folic acid (THERA, ONE DAILY) 400 mcg Take by mouth. ipratropium (ATROVENT) 0.02 % nebulizer solution USE 1 VIAL (2.5 ML) VIA NEBULIZER FOUR TIMES A DAY OVER 5 TO 15 MINUTES FOR WHEEZING OR SHORTNESS OF BREATH spironolactone (ALDACTONE) 25 mg tablet Take 1 tablet by mouth once daily. Take one additional 25 mg spironolactone for SBP greater than 150 losartan-hydroCHLOROthiazide (HYZAAR) 100-25 mg per tablet Take 1 tablet by mouth once daily. pramipexole (MIRAPEX) 1 mg tablet Take 1 tablet by mouth daily at bedtime. clopidogrel (PLAVIX) 75 mg tablet Take 1 tablet by mouth once daily. atorvastatin (LIPITOR) 40 mg tablet Take 1 tablet by mouth once daily. furosemide (LASIX) 40 mg tablet Take 40 mg by mouth once daily. carvedilol (COREG) 6.25 mg tablet Take 2 tablets by mouth twice daily. (Dr. Smith adjusting) Cholecalciferol, Vitamin D3, 1,000 unit cap Take 1 capsule by mouth once daily. Social History Tobacco Use Smoking status: Former Packs/day: 1.00 Years: 53.00 Pack years: 53.00 Types: Cigarettes Start date: 08/11/1963 Quit date: 10/04/2016 Years since quittin.5 Smokeless tobacco: Never Tobacco comments: 10-20 year period in 30-40s when quit. Vaping Use Vaping Use: Never used Substance Use Topics Alcohol use: Yes Comment: very seldom Drug use: No FAMILY HISTORY Problem Relation Age of Onset Diabetes Mother Heart Mother None Father hx unknown Heart Brother Diabetes Brother Cancer Brother Lung, 1/2 brother. Asthma No Family History COPD No Family History Emphysema No Family History PAST SURGICAL HISTORY Procedure Laterality Date CAROTID ENDARTERECTOMY Left 01/23/2021 COLONOSCOPY FLX DX W/COLLJ SPEC WHEN PFRMD 03/25/2004 Colonoscopy CYSTOSCOPY 06/02/2012 left ureteral calculi ESOPHAGOGASTRODUODENOSCOPY TRANSORAL DIAGNOSTIC 03/25/2004 EGD PAST SURGICAL HISTORY OF 04/15/2004 right inferior parathyroidectomy TOTAL ABDOMINAL HYSTERECT W/WO RMVL TUBE OVARY 05/18/1971 Hysterectomy, JENNY, LSO carcinoma insitu PMH, Social history, family history and surgical history reviewed and updated in EMR REVIEW OF SYSTEMS: CONSTITUTIONAL: No fevers, chills, nightsweats. 25 lb weight gain HEENT: Some nasal congestion/sinus symptoms, CARDIOVASCULAR: No chest pain, palpitations, orthopnea, PND,. Chronic edema PULM: see HPI : No urinary complaints, including dysuria, gross hematuria or pyuria. NEURO: No new balance problems, peripheral weakness/paresthesias or numbness of concern. INTEGUMENTARY: No new skin changes or rashes PHYSICAL EXAMINATION: BP 183/75 Pulse 69 Wt 175 lb 3.2 oz (79.5kg) SpO2 95% General Appearance: Obese female, NAD Skin: Skin color, texture, turgor normal, no suspicious rashes or lesions. Head: Normocephalic, no masses, lesions, tenderness or abnormalities. Eyes: Sclera, conjunctiva normal Oropharynx: Upper plate, no oral lesions or thrush Neck: No JVD, no masses, no bruits, no adenopathy. Lungs: Mild kyphosis, normal to percussion, no crackles. Upper airway wheezing, congestion Heart: Regular rate and rhythm, soft systolic murmur Extremities: Edema, no clubbing Assessment/Plan: Restrictive lung disease -Etiology not clear. Obesity not severe enough for this degree of restriction. No significant chest cage abnormality. No physical findings to suggest pulmonary fibrosis. No scleroderma -Start with CXR. May need chest CT COPD -Mild COPD -Continue current therapy -Check eosinophil count for allergic component Peripheral edema -Repeat BNP -Sees Dr. Luis roth. Consider echo. Dora Kong MD [facility] [place] documented in this encounter [facility] 04-21-2022 Miscellaneous Notes Radiology Service Progress Note DATE OF SERVICE: April 21, 2022 TIME: 2:35 PM PATIENT IDENTITY VERIFICATION COMPLETED USING TWO (2) STANDARD IDENTIFIERS: Name and Date of confirmed by patient verbally and Name and Date of confirmed by identification band. FALL SCREENING: Has the patient had 2 falls in the last year or 1 fall with injury or currently using an Ambulatory Assistive Device (Walker, Cane, Wheelchair, Crutches, etc.)? Emergency Room Patient: Screened in ED PATIENT GENDER DATA: Female. status: : No status: NO. PATIENT RELEVANT IMPLANT DATA REVIEWED: Yes ALLERGIES: Reviewed and unchanged CONTRAST ALLERGY: NO. EXAM: CT -CONTRAST INDUCED NEPHROPATHY RISK FACTORS: Patient age > 60 years CREATININE: Creatinine Date Value Ref Range Status 03/30/2022 1.42 (H) 0.58 - 0.96 mg/dL Final 01/28/2022 1.40 (H) 0.58 - 0.96 mg/dL Final 11/24/2021 1.39 (H) 0.58 - 0.96 mg/dL Final Estimated Glomerular Filtration Rate Date Value Ref Range Status 03/30/2022 37 (L) >=60 mL/min/1.73m Final Comment: Estimated Glomerular Filtration Rate (eGFR) is calculated using the 2020 CKD-EPI creatinine equation. This equation utilizes serum creatinine, sex, and age as parameters. The creatinine assay has traceable calibration to isotope dilution-mass spectrometry. Refer to KDIGO guidelines for clinical interpretation. In patients with unstable renal function, e.g. those with acute kidney injury, the eGFR may not accurately reflect actual GFR. eGFR- Date Value Ref Range Status 01/24/2021 54 Final P.O.C.T. RESULTS: POC done: Yes, See Lab Tab April 21, 2022 TREATMENT: N/A PERIPHERAL IV DATA: Inpatient - refer to LDA documentation RADIOLOGY DEPARTMENT: CT; Exam(s) Completed: Abdomen/Pelvis SIGNATURE: Giovani Pate PATIENT NAME: Chanel Rousseau DATE: April 21, 2022 TIME: 2:35 PM documented in this encounter [facility] 04-21-2022 Nurse Note Radiology Service Progress Note DATE OF SERVICE: April 21, 2022 TIME: 2:20 PM PATIENT WEIGHT: 169 LBS PATIENT IDENTITY VERIFICATION COMPLETED USING TWO (2) STANDARD IDENTIFIERS: Name and Date of confirmed by patient verbally. FALL SCREENING: Has the patient had 2 falls in the last year or 1 fall with injury or currently using an Ambulatory Assistive Device (Walker, Cane, Wheelchair, Crutches, etc.)? No PATIENT GENDER DATA: Female. status: : No status: NO. ALLERGIES: Reviewed and unchanged CONTRAST ALLERGY: No EXAM: CT -CONTRAST INDUCED NEPHROPATHY RISK FACTORS: Patient age > 60 years CREATININE: Creatinine Date Value Ref Range Status 03/30/2022 1.42 (H) 0.58 - 0.96 mg/dL Final 01/28/2022 1.40 (H) 0.58 - 0.96 mg/dL Final 11/24/2021 1.39 (H) 0.58 - 0.96 mg/dL Final Estimated Glomerular Filtration Rate Date Value Ref Range Status 03/30/2022 37 (L) >=60 mL/min/1.73m Final Comment: Estimated Glomerular Filtration Rate (eGFR) is calculated using the 2020 CKD-EPI creatinine equation. This equation utilizes serum creatinine, sex, and age as parameters. The creatinine assay has traceable calibration to isotope dilution-mass spectrometry. Refer to KDIGO guidelines for clinical interpretation. In patients with unstable renal function, e.g. those with acute kidney injury, the eGFR may not accurately reflect actual GFR. eGFR- Date Value Ref Range Status 01/24/2021 54 Final P.O.C.T. RESULTS: POC done: Yes, See Lab Tab April 21, 2022 TREATMENT: N/A IV SITE: Ambulatory: A peripheral IV was started in the Left antecubital site with a Angio cath: 20 gauge. IV SITE APPEARANCE: Clean,Dry and Intact SIGNATURE: Keily Rosas RN PATIENT NAME: Chanel Rousseau DATE: April 21, 2022 TIME: 2:20 PM documented in this encounter [facility] 04-16-2022 Miscellaneous Notes Spoke to pt and answered her questions. Ana PEREZ documented in this encounter [facility] 04-05-2022 Miscellaneous Notes Please enter order for hydration and pt will get rescheduled. Ana PEREZ Needs rescheduled to time and location when IV cvan be done Please advise - Pt had hydration for past Ct Betty Todd CMA Tiana from [facility] called to let us know that the patient's creatinine was elevated and they can't do the CT with contrast. Options are If pt needs contrast she would need hydration prior to scan. Or go to the main hospital. We could do CT kidney without contrast. If we choose no contrast we need a new order. Please advise as pt is scheduled for 04/06/22. Ana PEREZ documented in this encounter [facility] 03-30-2022 Miscellaneous Notes Rx approved. Patient phones requesting refills as follows: Requested Prescriptions Pending Prescriptions Disp Refills albuterol (PROVENTIL) 2.5 mg /3 mL (0.083 %) nebulizer solution 360 mL 3 Sig: USE 1 VIAL (3 ML) VIA NEBULIZER FOUR TIMES A DAY OVER 5 TO 15 MINUTES FOR WHEEZING AND SHORTNESS OF BREATH Please review and advise. Angélica Franco LPN documented in this encounter [facility] 03-29-2022 History of Present illness Narrative INSIGHT CDM TELEPHONIC OUTREACH Provider Action/FYI: Spk with Pt she noted she has chronic bilateral leg edema, she uses compression stockings and elevates her legs as needed, and monitors the sodium in her diet. Pt follows with Dr. Trevino Vascular. Pt denies needs or concerns. Contact made with patient: Yes Patient identified by name and . Discussed care with patient It s nice talking to you again. As a reminder, this is our bi-weekly check-in where I will be asking you questions about your health. This will only take a few minutes of your time. Is this a good time? Yes Symptoms What Chronic Disease(s) does the patient have: CKD and COPD Do you check your blood pressures at home? No Do you have new or worse shortness of breath with activity? No Do you feel like you are dehydrated for any reason, including not being able to eat or drink normally, or having less urine/much darker urine than normal for you? No Do you check your daily weight at home? No and Do you have new or worsening cough? No Do you have new or worsening wheezing? No Do you need to use your rescue (Albuterol) inhaler or nebulizer more often than normal? No Are you having any other symptoms that your PCP needs to know about? No Symptom Escalation The patient required an escalation for symptom(s)? No Medications Do you have any questions about taking your medication or which medications you should be on? No Do you need any medication refills at this time, including any of the medications you might take only when needed? No Social We would like to make sure you have what you need so that your basic needs are met- including your personal safety, food, housing and medications? Would you like to speak with a social work body team member to help give you support for any of these needs? No It can be normal to feel anxious or down during a time like this. Would you like to talk to a mental health professional about how you have been feeling? No Closing Thank you for taking the time to talk with me today. We want to work with you to ensure that we are keeping your medical condition(s) well-controlled and to keep you healthy and out of the doctor's office or hospital. It s also not too late for me to sign you up for automated weekly questionnaires through [employer]. This is an easy way for us to stay connected each week. Are you interested? No, I understand. We can always sign you up in the future if you change your mind. Just as a reminder, will continue to call you every other week to check in on your health. Our calls should take 10-15 minutes or less. Remember, if you have concerns in between our calls, please call your PCP's office right away. Thank you. Enter next patient outreach date for two weeks on the same day of the week as today in the Track Pt Outreach and End outreach. Alannah Hi RN March 29, 2022 3:56 PM documented in this encounter [facility] 03-09-2022 History of Present illness Narrative This office note has been dictated. Angélica Trevino DO documented in this encounter [facility] 02-25-2022 History of Present illness Narrative INSIGHT CDM TELEPHONIC OUTREACH Provider Action/FYI: Call to Pt left a message to verify COPD/ CKD symptom status and needs Contact made with patient: No - Left message Guy my name is Alannah Hi RN your Computer Artist from the [facility] I am calling today for your bi-weekly check in. I am sorry I missed your call. I will reach out to you again tomorrow. (if the third call I will reach out to you again next week) Enter next patient outreach date for the following business day using the Track Pt Outreach. End outreach. Alannah Hi RN February 25, 2022 1:24 PM documented in this encounter [facility] 02-18-2022 Miscellaneous Notes Spoke with Lamar at [facility] She is able to get a machine for the patient Needs an order with patient name Pump setting and provider signature. Called [facility] and left VM to call our office regarding pump order Patient calling she received an update regarding her pump and there is a large out of pocket cost. She contacted [facility] and they advised she could get a pump from them for less out of pocket Will call them to inquire about ordering process PH [phone] documented in this encounter [facility] 02-04-2022 History of Present illness Narrative [facility] [place], 02/04/2022: Name: Chanel Rousseau : 1935 The patient is here today by herself. HPI: Chanel Rousseau is a 86 yo former smoker, 53 pack-years, with PMH significant for basal cell carcinoma, bilateral carotid stenosis s/p left carotid endarterectomy 01/2021, CKD stage 3, diverticulosis, HTN, TIA on plavix, and COPD. Currently being evaluated by urology secondary to incidentally discovered right renal mass. CT on 12/08 revealed a 2.2 cm indeterminate lesion along the anterior aspect of the right kidney. Follow up US did not show spot on kidney and patient to proceed with CT kidney which is scheduled in March. The patient is here for follow up of COPD. Since the last Pulmonary Clinic visit 07/30/2021, the patient has not required ED care for exacerbation. There has been no hospital admission for exacerbation. Claims to be consistently compliant with prescribed maintenance Rx Duonebs with budesonide. Previously unable to afford inhaled maintenance therapy. Daily cough. Typically expels phlegm in the mornings. Describes it as creamy . No hemoptysis. No pleuritic chest pain. No wheezing. No dyspnea at rest. Exertional dyspnea seems worse with the heat and humidity. I can't do much . Significant swelling in legs. On multiple diuretics per Dr. Smith, [facility]. On Lasix, Aldactone, losartan-HCTZ. Per patient, he tried to double up on those, but it didn't help . Additionally, being evaluated by Dr. Trevino, vascular, for PAD and venous insufficiency. PMH: Updated with patient today. FAMH: Updated with patient today. SOCH: Updated with patient today. IMMUNIZATIONS Prevnar - 11/14/2014 Pneumovax - 10/22/2012, 05/20/2008 Influenza - 05/01/2021 COVID-19 - 09/14/2020, 08/16/2020 ROS: General: Generally feels short of breath. Appetite good. Eyes, Ears, nose, throat: No post nasal drip, rhinorrhea, purulent nasal discharge. No hoarseness. Vision stable. Cardiac: No angina, orthopnea. GI: No heartburn, dysphagia. Uro/MANAGER RN: See HPI. Musculoskeletal: No pain. Neuro: No headache, focal weakness, tremor. Skin: No rash. Otherwise negative. Allergies were reviewed and updated, and medications were reconciled with the patient. PHYSICAL EXAMINATION: BP (P) 122/70 Pulse (P) 72 Resp (P) 18 Wt (P) 78 kg (172 lb) SpO2 (P) 95% BMI (P) 31.46 kg/m Gen: No acute distress. Cooperative with examination. ENT: Oral hygeine and dentition good. Pharynx clear. No halitosis. Resp: No stridor, accessory respiratory muscle use, supra-sternal or intercostal retractions. No wheezes, crackles. CV: Regular rythm. Heart tones normal. Radial pulses normal. Abd: Non distended. MSK: No kyphoscoliosis. Ext: Warm and well perfused. No clubbing, cyanosis. 1-2+ pitting edema, bilaterally. Skin: No rash, ecchymoses. Neuro: Mental status normal. Affect normal. No tremor. DATA REVIEW: Spirometry 07/30/2021 10/30/2020 FVC(L) 1.43, 64% 1.61, 72% FEV1(L) 1.09, 64% 1.25, 74% FEV1% 0.76 0.78 ASSESSMENT/PLAN: 1. COPD, mild (HCC) - ICD9: 496, ICD10: J44.9 (primary diagnosis) Symptomatically stable. Continue maintenance therapy with Duonebs and budesonide. Up to date on annual influenza, pneumococcal and Covid 19 vaccines. - SPIROMETRY BASELINE ONLY 2. Allergic rhinitis, unspecified seasonality, unspecified trigger - ICD9: 477.9, ICD10: J30.9 3. Former smoker - ICD9: V15.82, ICD10: Z87.891 I addressed the questions of the patient, and she expressed understanding and acceptance of my answers. Ana Hernandez PA-C documented in this encounter [facility] 02-01-2022 Instructions Maddison Valdovinos APRN.PROMOTIONS INTERN - 02/01/2022 11:41 AM EDT Try trazodone at bedtime to help with sleep. Use a normal saline nasal spray before bedtime to help with nasal congestion HOME INSTRUCTIONS FOR MANAGEMENT OF CONSTIPATION NON-MEDICATION MEASURES: 1. Increase your intake of fluids daily. Try to include 8 - 8 ounce glasses per day. Sip on fluids throughout the day. 2. Add more fiber to your diet. The recommended daily amount of fiber is 20 to 35 grams. If you are increasing your fiber intake do so slowly to avoid bloating and discomfort. The best source of fiber comes from foods. Examples of high fiber foods include whole grain breads and cereals, fruits (berries, prunes, oranges, etc) and vegetables (lettuce, broccoli, potato with skins, etc.). There are also fiber supplements available over the counter such as Metamucil gummies or Benefiber 3. Increase your daily activity (walking, moving from bed to chair, or exercise in bed) 4. Set aside a time preferably around the same time each day (example: right after breakfast) to move bowels. MEDICATION MEASURES: 1. Miralax daily- 1 cap-full in a beverage. This is a daily medication, can adjust how much you need over time depending on your stools. For example, decrease dose to half or every other day or so if stools become too loose. Check to see if your insurance covers shingles vaccine and what location to get the vaccine -usually best covered at your local pharmacy where you get prescriptions filled documented in this encounter [facility] 02-01-2022 History of Present illness Narrative SUBJECTIVE: SHINGRIX VACCINE(1 of 2) Never done COVID-19 VACCINE(3 - Booster for Moderna series) due on 02/11/2021 ADVANCE DIRECTIVE DISCUSSION Never done Cahnel Rousseau is a 86 year old female. PMH signficiant for ACTIVE PROBLEM LIST Peripheral Enthesopathies and Allied Syndromes Osteoporosis, Unspecified restless leg syndrome Diverticulosis of Colon (Without Mention of Hemorrhage) Personal History of Colonic Polyps Restless Legs Syndrome (Rls) Brachial Neuritis Or Radiculitis NOS Htn (Hypertension), Benign Hypokalemia Copd (Chronic Obstructive Pulmonary Disease) (Hcc) S/P Unilateral Salpingo-Oophorectomy S/P Jenny (Total Abdominal Hysterectomy) Hyperlipidemia Hypertension Vitamin D Deficiency Nonspecific Abnormal Finding in Stool Contents Acute Gastritis Without Mention of Hemorrhage Calculi, Ureter Essential Hypertension Mixed Simple and Mucopurulent Chronic Bronchitis (Hcc) Mixed Hyperlipidemia Herpes Zoster Without Complication Bifascicular Block Obesity, Class I, Bmi 30-34.9 Ckd (Chronic Kidney Disease) Stage 3, Gfr 30-59 Ml/Min ([facility]) Tia (Transient Ischemic Attack) Carotid Artery Stenosis Pad (Peripheral Artery Disease) ([facility]) Vascular: Dr. Trevino. Expander Machine Operator: Dr.[facility]. Pulmonology: Ana Hernandez Urologist: Spencer Boone MD for incidentally discovered right renal mass 11/2021. US did not show lesion of interest, CT ordered. Scheduled : For March Notes she is in overall her usual state of health. She notes chronic leg swelling, has been seeing Dr. Trevino for this. Considering compression pumps. This process is underway. She notes trouble maintaining sleep, notes she is falling asleep okay but then getting up every 2 hours. Trouble staying asleep. Notes she is getting about 6 hours per night. Notes nasal congestion for which she is using prescription. Notes constipation recently. 1 BM per day but hard to get out. Notes increased shortness of breath on exertion, increased from baseline. Has upcoming appointments with pulmonology and cardiology. Today she is without headache, chest pain, palpitations, dyspnea, peripheral edema, orthopnea, fatigue presyncope syncope or PND. No change in mobility speech or cognition. Last 14 Encounter BP Readings: Date: BP: 12/28/2021 130/80 12/08/2021 145/65 12/08/2021 148/70 11/24/2021 145/52 11/11/2021 150/68 08/25/2021 138/70 07/30/2021 165/73 07/23/2021 132/66 05/01/2021 139/61 02/09/2021 144/64 01/23/2021 135/88 01/16/2021 174/60 01/05/2021 83/49 01/05/2021 162/82 Review of Systems Constitutional: Negative. Cardiovascular: Positive for leg swelling. Gastrointestinal: Positive for constipation. Psychiatric/Behavioral: Positive for sleep disturbance. Objective BP 159/75 Pulse 66 Resp 16 Wt 77.1 kg (170 lb) SpO2 96% BMI 31.09 kg/m Physical Exam Vitals and nursing note reviewed. Constitutional: Appearance: Normal appearance. HENT: Head: Normocephalic and atraumatic. Eyes: Conjunctiva/sclera: Conjunctivae normal. Cardiovascular: Rate and Rhythm: Normal rate and regular rhythm. Heart sounds: Normal heart sounds. Pulmonary: Effort: Pulmonary effort is normal. Breath sounds: Wheezing present. Abdominal: General: Bowel sounds are normal. Palpations: Abdomen is soft. Musculoskeletal: Right lower leg: Edema (non pitting) present. Left lower leg: Edema (non pitting) present. Skin: General: Skin is warm and dry. Neurological: Mental Status: She is alert. Mental status is at baseline. ALLERGIES Allergen Reactions Amlodipine Swelling Lower leg edema. Aspirin Unknown Lisinopril Cough Requip [Ropinirole] Other: See Comments Very anxious Medications multivitamin with folic acid (THERA, ONE DAILY) 400 mcg, Take by mouth. albuterol HFA (VENTOLIN HFA) 90 mcg/actuation inhaler, Inhale 2 Puffs as instructed every 4 hours as needed for wheezing/shortness of breath. May take 2 puffs prior to exercise 0.9 % sodium chloride (NACL 0.9%) infusion, Inject 500 mL/hr intravenously continuous. budesonide (PULMICORT) 0.5 mg/2 mL nebulizer solution, INHALE THE CONTENTS OF 1 VIAL (2 ML) VIA NEBULIZER TWICE A DAY. USE EVERY 12 HOURS OVER 5 TO 15 MINUTES. ipratropium (ATROVENT) 0.02 % nebulizer solution, USE 1 VIAL (2.5 ML) VIA NEBULIZER FOUR TIMES A DAY OVER 5 TO 15 MINUTES FOR WHEEZING OR SHORTNESS OF BREATH albuterol (PROVENTIL) 2.5 mg /3 mL (0.083 %) nebulizer solution, USE 1 VIAL (3 ML) VIA NEBULIZER FOUR TIMES A DAY OVER 5 TO 15 MINUTES FOR WHEEZING AND SHORTNESS OF BREATH spironolactone (ALDACTONE) 25 mg tablet, Take 1 tablet by mouth once daily. Take one additional 25 mg spironolactone for SBP greater than 150 losartan-hydroCHLOROthiazide (HYZAAR) 100-25 mg per tablet, Take 1 tablet by mouth once daily. pramipexole (MIRAPEX) 1 mg tablet, Take 1 tablet by mouth daily at bedtime. clopidogrel (PLAVIX) 75 mg tablet, Take 1 tablet by mouth once daily. atorvastatin (LIPITOR) 40 mg tablet, Take 1 tablet by mouth once daily. IPRATROPIUM BROMIDE INHALATION, Inhale as instructed. furosemide (LASIX) 40 mg tablet, Take 40 mg by mouth once daily. carvedilol (COREG) 6.25 mg tablet, Take 2 tablets by mouth twice daily. (Dr. Smith adjusting) Cholecalciferol, Vitamin D3, 1,000 unit cap, Take 1 capsule by mouth once daily. Ciqyqrpzjldve-Ojwyuufg-Gjztyr (CENTRUM SILVER) ORAL Tab, Take one(1) tablet daily. PAST MEDICAL HISTORY Diagnosis Date Basal cell carcinoma Carotid stenosis,asymptomatic bilateral CKD (chronic kidney disease) stage 3, GFR 30-59 ml/min ([facility]) 07/30/2018 COPD (chronic obstructive pulmonary disease) ([facility]) Dr Jovel mud analysis supervisor Diverticulosis of colon (without mention of hemorrhage) Diverticulosis Hypertension Rolly Smith MD Osteoporosis, unspecified Personal history of colonic polyps Colon polyps Restless legs syndrome (RLS) TIA (transient ischemic attack) 2008 Plavix Social History Tobacco Use Smoking status: Former Smoker Packs/day: 1.00 Years: 53.00 Pack years: 53.00 Types: Cigarettes Start date: 08/11/1963 Quit date: 10/04/2016 Years since quittin.3 Smokeless tobacco: Never Used Tobacco comment: 10-20 year period in 30-40s when quit. Vaping Use Vaping Use: Never used Substance Use Topics Alcohol use: Yes Comment: very seldom Drug use: No Component Latest Ref Rng & Units 01/24/2021 11/24/2021 01/28/2022 Protein, Total 6.3 - 8.0 g/dL 6.7 Albumin 3.9 - 4.9 g/dL 4.1 Calcium 8.5 - 10.2 mg/dL 8.8 9.0 Bilirubin, Total 0.2 - 1.3 mg/dL 0.3 Alkaline Phosphatase 34 - 123 U/L 69 AST 13 - 35 U/L 19 ALT 7 - 38 U/L 13 Glucose 74 - 99 mg/dL 117 (H) 125 (H) BUN 7 - 21 mg/dL 19 42 (H) Creatinine 0.58 - 0.96 mg/dL 1.17 (H) 1.39 (H) 1.40 (H) Sodium 136 - 144 mmol/L 132 (L) 140 Potassium 3.7 - 5.1 mmol/L 4.7 4.0 Chloride 97 - 105 mmol/L 98 104 CO2 22 - 30 mmol/L 23 23 Anion Gap 9 - 18 mmol/L 11 13 eGFR >=60 mL/min/1.73m 37 (L) 37 (L) WBC 3.70 - 11.00 k/uL 11.46 (H) 7.48 RBC 3.90 - 5.20 m/uL 3.84 (L) 3.88 (L) Hemoglobin 11.5 - 15.5 g/dL 12.4 12.3 Hematocrit 36.0 - 46.0 % 37.7 37.6 MCV 80.0 - 100.0 fL 98.2 96.9 MCH 26.0 - 34.0 pg 32.3 31.7 MCHC 30.5 - 36.0 g/dL 32.9 32.7 RDW-CV 11.5 - 15.0 % 13.2 14.1 Platelet Count 150 - 400 k/uL 145 (L) 169 MPV 9.0 - 12.7 fL 10.5 10.1 Absolute nRBC <0.01 k/uL <0.01 0.02 (H) eGFR- 54 eGFR-All Other Races 44 Vitamin D 25 Hydroxy 31.0 - 80.0 ng/mL 56.9 Creatinine Date Value Ref Range Status 01/28/2022 1.40 (H) 0.58 - 0.96 mg/dL Final 11/24/2021 1.39 (H) 0.58 - 0.96 mg/dL Final 01/24/2021 1.17 (H) 0.58 - 0.96 mg/dL Final 01/16/2021 1.05 (H) 0.58 - 0.96 mg/dL Final ASSESSMENT/PLAN: ASSESSMENT/PLAN: 1. Insomnia, unspecified type - ICD9: 780.52, ICD10: G47.00 (primary diagnosis) Recommend trial of trazodone 2. Encounter for immunization - ICD9: V03.89, ICD10: Z23 - [employer] COVID-19 VACCINE, AGE 12+ YR ([place]) 3. Constipation, unspecified constipation type - ICD9: 564.00, ICD10: K59.00 4. Essential hypertension - ICD9: 401.9, ICD10: I10 (primary diagnosis) Suboptimal control, followed by cardiology. [facility] provider stopped amlodipine in the past due to ankle swelling. 5. Stage 3a chronic kidney disease (HCC) - ICD9: 585.3, ICD10: N18.31 stable Recommend trial of trazodone for insomnia, normal saline spray before bedtime for nasal congestion, home instructions for constipation provided including increased fluid intake as most recent BUN significantly elevated. MiraLAX as needed [id number]. She notes increased shortness of breath, last echocardiogram 2017 at [facility], declines follow-up echo today, prefers to follow-up with her music promoter. schedule routine follow up with MD Maddison Peters APRN.PROMOTIONS INTERN Medical Decision Making: Problems: Moderate: 1+ chronic illnesses with change and 2+ stable chronic illnesses Risk: Moderate: Drug management Medical Decision Making Level: 4 - Moderate documented in this encounter [facility] 01-25-2022 Miscellaneous Notes Received a call from Mrs. Rousseau. She continues to have bilateral lower extremity edema especially on her top of her feet. Compression has not improved symptoms. We discussed possible addition of compression pump. Will discuss with office staff about arranging for pumps. documented in this encounter [facility] 01-06-2022 History of Present illness Narrative Alannah Hi RN [facility] TELEPHONIC OUTREACH Provider Action/FYI: Call to Pt left a message to verify COPD/ CKD symptom status and needs Contact made with patient: No - Left message Hello my name is Alannah Hi RN your Computer Artist from the [facility] I am calling today for your bi-weekly check in. I am sorry I missed your call. I will reach out to you again tomorrow. (if the third call I will reach out to you again next week) Enter next patient outreach date for the following business day using the Track Pt Outreach. End outreach. Alannah Hi RN January 06, 2022 3:57 PM documented in this encounter [facility] 01-05-2022 Miscellaneous Notes Error ----- Message from Spencer Boone MD sent at 01/04/2022 7:13 AM EDT ----- Please call patient. Ultrasound does not show the spot on the kidney we are looking for. She needs a CT kidney with and without contrast.This can wait a few months, because the spot is small and there is a nationwide shortage of contrastSchedule a CT kidney, blood work 1 week priorIn approximately 3 months and then a follow-up with me documented in this encounter [facility] 12-28-2021 Note HNO ID: [id number] Author: Spencer Boone MD Service: ? Author Type: Physician Type: Progress Notes Filed: 12/28/2021 10:27 AM Note Text: NEW PATIENT HISTORY AND PHYSICAL EXAM HPI Chanel Rousseau is a 86 year old female who presents the evaluation of an incidentally discovered right renal mass. She underwent a CT on December 08 A 2.2 cm indeterminate lesion along the anterior aspect of the right kidney. Further evaluation by MR or CT KUB is recommended. I was able to find a scanned CT report from February 2016, which reported a 1.6 cm right renal cyst.; I would assume likely the lateral cyst on current CT, but there is also an additional anterior round lesion @Patient Entered Questionnaires PROMIS Global Health PROMIS Global Health Scale 04/24/2021 07/24/2021 11/10/2021 Physical Health Percentile 15 % 41 % 41 % Mental Health Percentile 63 % 53 % 63 % Percentiles provide an indication of how the patient's score ranks in relation to the general population. Higher percentile rankings indicate better function/quality of life. 50th percentile is the average of the general population and indicates half of respondents had a worse score. @ Creatinine Date Value Ref Range Status 11/24/2021 1.39 (H) 0.58 - 0.96 mg/dL Final No results found for: PSA Color (no units) Date Value 12/03/2015 Yellow Clarity (no units) Date Value 12/03/2015 Cloudy Glucose, Urine (mg/dL) Date Value 12/03/2015 Negative Bilirubin, Urine (no units) Date Value 12/03/2015 Negative Ketones, Urine (no units) Date Value 12/03/2015 Negative Specific [place], Ur (no units) Date Value 12/03/2015 1.020 Hemoglobin/Blood,Ur ( ) Date Value 12/03/2015 Negative pH, Urine (no units) Date Value 12/03/2015 6.0 Protein, Urine (mg/dL) Date Value 12/03/2015 Negative Urobilinogen (no units) Date Value 12/03/2015 Normal Nitrites (no units) Date Value 12/03/2015 Negative Leukest (no units) Date Value 12/03/2015 Trace REVIEW OF SYSTEMS Review of Systems MEDICATIONS: multivitamin with folic acid (THERA, ONE DAILY) 400 mcg, Take by mouth. albuterol HFA (VENTOLIN HFA) 90 mcg/actuation inhaler, Inhale 2 Puffs as instructed every 4 hours as needed for wheezing/shortness of breath. May take 2 puffs prior to exercise 0.9 % sodium chloride (NACL 0.9%) infusion, Inject 500 mL/hr intravenously continuous. budesonide (PULMICORT) 0.5 mg/2 mL nebulizer solution, INHALE THE CONTENTS OF 1 VIAL (2 ML) VIA NEBULIZER TWICE A DAY. USE EVERY 12 HOURS OVER 5 TO 15 MINUTES. ipratropium (ATROVENT) 0.02 % nebulizer solution, USE 1 VIAL (2.5 ML) VIA NEBULIZER FOUR TIMES A DAY OVER 5 TO 15 MINUTES FOR WHEEZING OR SHORTNESS OF BREATH albuterol (PROVENTIL) 2.5 mg /3 mL (0.083 %) nebulizer solution, USE 1 VIAL (3 ML) VIA NEBULIZER FOUR TIMES A DAY OVER 5 TO 15 MINUTES FOR WHEEZING AND SHORTNESS OF BREATH spironolactone (ALDACTONE) 25 mg tablet, Take 1 tablet by mouth once daily. Take one additional 25 mg spironolactone for SBP greater than 150 losartan-hydroCHLOROthiazide (HYZAAR) 100-25 mg per tablet, Take 1 tablet by mouth once daily. pramipexole (MIRAPEX) 1 mg tablet, Take 1 tablet by mouth daily at bedtime. clopidogrel (PLAVIX) 75 mg tablet, Take 1 tablet by mouth once daily. atorvastatin (LIPITOR) 40 mg tablet, Take 1 tablet by mouth once daily. IPRATROPIUM BROMIDE INHALATION, Inhale as instructed. furosemide (LASIX) 40 mg tablet, Take 40 mg by mouth once daily. carvedilol (COREG) 6.25 mg tablet, Take 2 tablets by mouth twice daily. (Dr. Smith adjusting) Cholecalciferol, Vitamin D3, 1,000 unit cap, Take 1 capsule by mouth once daily. Uobfiqepbkwtb-Kzjjdrfu-Fmfuqf (CENTRUM SILVER) ORAL Tab, Take one(1) tablet daily. HISTORIES PAST MEDICAL HISTORY Diagnosis Date - Basal cell carcinoma - Carotid stenosis,asymptomatic bilateral - CKD (chronic kidney disease) stage 3, GFR 30-59 ml/min ([facility]) 07/30/2018 - COPD (chronic obstructive pulmonary disease) ([facility]) Dr Jovel mud analysis supervisor - Diverticulosis of colon (without mention of hemorrhage) Diverticulosis - Hypertension Rolly Smith MD - Osteoporosis, unspecified - Personal history of colonic polyps Colon polyps - Restless legs syndrome (RLS) - TIA (transient ischemic attack) 2008 Plavix PAST SURGICAL HISTORY Procedure Laterality Date - CAROTID ENDARTERECTOMY Left 01/23/2021 - COLONOSCOPY FLX DX W/COLLJ SPEC WHEN PFRMD 03/25/2004 Colonoscopy - CYSTOSCOPY 06/02/2012 left ureteral calculi - ESOPHAGOGASTRODUODENOSCOPY TRANSORAL DIAGNOSTIC 03/25/2004 EGD - PAST SURGICAL HISTORY OF 04/15/2004 right inferior parathyroidectomy - TOTAL ABDOMINAL HYSTERECT W/WO RMVL TUBE OVARY 05/18/1971 Hysterectomy, JENNY, LSO carcinoma insitu SOCIAL HISTORY Social History Tobacco Use - Smoking status: Former Smoker Packs/day: 1.00 Years: 53.00 Pack years: 53.00 Types: Cigarettes Start date: 08/11/1963 (more content not included)... [facility] 12-28-2021 History of Present illness Narrative NEW PATIENT HISTORY AND PHYSICAL EXAM HPI Chanel Rousseau is a 86 year old female who presents the evaluation of an incidentally discovered right renal mass. She underwent a CT on December 08 A 2.2 cm indeterminate lesion along the anterior aspect of the right kidney. Further evaluation by MR or CT KUB is recommended. I was able to find a scanned CT report from February 2016, which reported a 1.6 cm right renal cyst.; I would assume likely the lateral cyst on current CT, but there is also an additional anterior round lesion @Patient Entered Questionnaires PROMIS Global Health PROMIS Global Health Scale 04/24/2021 07/24/2021 11/10/2021 Physical Health Percentile 15 % 41 % 41 % Mental Health Percentile 63 % 53 % 63 % Percentiles provide an indication of how the patient's score ranks in relation to the general population. Higher percentile rankings indicate better function/quality of life. 50th percentile is the average of the general population and indicates half of respondents had a worse score. @ Creatinine Date Value Ref Range Status 11/24/2021 1.39 (H) 0.58 - 0.96 mg/dL Final No results found for: PSA Color (no units) Date Value 12/03/2015 Yellow Clarity (no units) Date Value 12/03/2015 Cloudy Glucose, Urine (mg/dL) Date Value 12/03/2015 Negative Bilirubin, Urine (no units) Date Value 12/03/2015 Negative Ketones, Urine (no units) Date Value 12/03/2015 Negative Specific [place], Ur (no units) Date Value 12/03/2015 1.020 Hemoglobin/Blood,Ur ( ) Date Value 12/03/2015 Negative pH, Urine (no units) Date Value 12/03/2015 6.0 Protein, Urine (mg/dL) Date Value 12/03/2015 Negative Urobilinogen (no units) Date Value 12/03/2015 Normal Nitrites (no units) Date Value 12/03/2015 Negative Leukest (no units) Date Value 12/03/2015 Trace REVIEW OF SYSTEMS Review of Systems MEDICATIONS: multivitamin with folic acid (THERA, ONE DAILY) 400 mcg, Take by mouth. albuterol HFA (VENTOLIN HFA) 90 mcg/actuation inhaler, Inhale 2 Puffs as instructed every 4 hours as needed for wheezing/shortness of breath. May take 2 puffs prior to exercise 0.9 % sodium chloride (NACL 0.9%) infusion, Inject 500 mL/hr intravenously continuous. budesonide (PULMICORT) 0.5 mg/2 mL nebulizer solution, INHALE THE CONTENTS OF 1 VIAL (2 ML) VIA NEBULIZER TWICE A DAY. USE EVERY 12 HOURS OVER 5 TO 15 MINUTES. ipratropium (ATROVENT) 0.02 % nebulizer solution, USE 1 VIAL (2.5 ML) VIA NEBULIZER FOUR TIMES A DAY OVER 5 TO 15 MINUTES FOR WHEEZING OR SHORTNESS OF BREATH albuterol (PROVENTIL) 2.5 mg /3 mL (0.083 %) nebulizer solution, USE 1 VIAL (3 ML) VIA NEBULIZER FOUR TIMES A DAY OVER 5 TO 15 MINUTES FOR WHEEZING AND SHORTNESS OF BREATH spironolactone (ALDACTONE) 25 mg tablet, Take 1 tablet by mouth once daily. Take one additional 25 mg spironolactone for SBP greater than 150 losartan-hydroCHLOROthiazide (HYZAAR) 100-25 mg per tablet, Take 1 tablet by mouth once daily. pramipexole (MIRAPEX) 1 mg tablet, Take 1 tablet by mouth daily at bedtime. clopidogrel (PLAVIX) 75 mg tablet, Take 1 tablet by mouth once daily. atorvastatin (LIPITOR) 40 mg tablet, Take 1 tablet by mouth once daily. IPRATROPIUM BROMIDE INHALATION, Inhale as instructed. furosemide (LASIX) 40 mg tablet, Take 40 mg by mouth once daily. carvedilol (COREG) 6.25 mg tablet, Take 2 tablets by mouth twice daily. (Dr. Smith adjusting) Cholecalciferol, Vitamin D3, 1,000 unit cap, Take 1 capsule by mouth once daily. Itksrptyrtswk-Kyuqedyy-Wbnzxq (CENTRUM SILVER) ORAL Tab, Take one(1) tablet daily. HISTORIES PAST MEDICAL HISTORY Diagnosis Date Basal cell carcinoma Carotid stenosis,asymptomatic bilateral CKD (chronic kidney disease) stage 3, GFR 30-59 ml/min ([facility]) 07/30/2018 COPD (chronic obstructive pulmonary disease) ([facility]) Dr Jovel mud analysis supervisor Diverticulosis of colon (without mention of hemorrhage) Diverticulosis Hypertension Rolly Smith MD Osteoporosis, unspecified Personal history of colonic polyps Colon polyps Restless legs syndrome (RLS) TIA (transient ischemic attack) 2008 Plavix PAST SURGICAL HISTORY Procedure Laterality Date CAROTID ENDARTERECTOMY Left 01/23/2021 COLONOSCOPY FLX DX W/COLLJ SPEC WHEN PFRMD 03/25/2004 Colonoscopy CYSTOSCOPY 06/02/2012 left ureteral calculi ESOPHAGOGASTRODUODENOSCOPY TRANSORAL DIAGNOSTIC 03/25/2004 EGD PAST SURGICAL HISTORY OF 04/15/2004 right inferior parathyroidectomy TOTAL ABDOMINAL HYSTERECT W/WO RMVL TUBE OVARY 05/18/1971 Hysterectomy, JENNY, LSO carcinoma insitu SOCIAL HISTORY Social History Tobacco Use Smoking status: Former Smoker Packs/day: 1.00 Years: 53.00 Pack years: 53.00 Types: Cigarettes Start date: 08/11/1963 Quit date: 10/04/2016 Years since quittin.2 Smokeless tobacco: Never Used Tobacco comment: 10-20 year period in 30-40s when quit. Vaping Use Vaping Use: Never used Substance Use Topics Alcohol use: Yes Comment: very seldom Drug use: No Review of system, history including past medical history, surgical history, family history and social history reviewed and confirmed by me. PHYSICAL EXAMINATION General appearance: Well appearing, alert, in no acute distress and well-hydrated, well nourished Reviewed labs, reviewed imaging ASSESSMENT/PLAN: 1. 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 Renal mass - ICD9: 593.9, ICD10: N28.89 - US KIDNEY/BLADDER - US KIDNEY/BLADDER Spencer Boone Current CT reviewed. This shows a cyst in the lateral portion of the right kidney as well as an indeterminate lesion anteriorly. An old CT report reports a 1.6 cm cyst For now, discussed incidental renal masses, at her age and comorbidities would like to follow Check renal ultrasound now and in 8 months documented in this encounter [facility] 12-25-2021 Miscellaneous Notes Results faxed as requested Encounter closed documented in this encounter [facility] 12-23-2021 History of Present illness Narrative [facility] TELEPHONIC OUTREACH Provider Action/FYI: Call to Pt left a message to verify COPD symptom status and needs Contact made with patient: No - Left message Guy my name is Alannah Hi RN your Computer Artist from the [facility] I am calling today for your bi-weekly check in. I am sorry I missed your call. I will reach out to you again tomorrow. (if the third call I will reach out to you again next week) Enter next patient outreach date for the following business day using the Track Pt Outreach. End outreach. Alannah Hi RN December 23, 2021 4:29 PM [facility] TELEPHONIC OUTREACH Provider Action/FYI: Call to Pt line rang busy, unable to leave a message Contact made with patient: No - Unable to leave message Entered next patient outreach date for the following business day, if third call please enter next outreach date for one week in the Track Pt. Outreach - End Outreach Alannah Hi RN December 22, 2021 10:50 AM documented in this encounter [facility] 12-09-2021 Miscellaneous Notes Patient is scheduled with urlolgy for 12/28/21 in the [place] office, encounter closed. Reviewed CTA with Mrs. Rousseau. Recommend continued non-interventional therapy. Swelling was improved a little with compression stockings. Recommend continued use of compression stockings. Reviewed renal findings on CT. Would recommend referral to urology for further evaluation of kidney lesion documented in this encounter [facility] 12-08-2021 History of Present illness Narrative Appointment cancelled. No imaging available documented in this encounter [facility] 12-08-2021 History of Present illness Narrative Radiology Service Progress Note PATIENT NAME: Chanel Rousseau DATE OF SERVICE: December 08, 2021 TIME: 3:52 PM PATIENT IDENTITY VERIFICATION COMPLETED USING TWO (2) IDENTIFIERS: Name and Date of confirmed by patient verbally. FALL SCREENING: Has the patient had 2 falls in the last year or 1 fall with injury or currently using an Ambulatory Assistive Device (Walker, Cane, Wheelchair, Crutches, etc.)? No PATIENT GENDER DATA: Female. status: : No status: NO. PATIENT RELEVANT IMPLANT DATA REVIEWED: Yes RADIOLOGY DEPARTMENT: CT; Exam(s) Completed: CTA Aorta/leg runoff PERIPHERAL IV DATA: iv started in hemoc,pre iv hydration in hemoc SIGNED BY: RT Ju(R) December 08, 2021 3:52 PM documented in this encounter [facility] 12-07-2021 Miscellaneous Notes Patient has been moved back to tomorrow morning Luisa in radiology let the patient know of this change Megan Reyes Pss Hem/Onc just had a [address] and psr's made aware. OK to reschedule pt for 9am tomorrow morning if needed. L/m message for pt to call if questions and get details of her appt that got rescheduled Hem/Onc was asked about this patient earlier and we told them that we do not have time to hydrate. Why was this patient scheduled? Patient scheduled aware of time tomorrow. Margy Burns Pt needs hydration for appt CT tomorrow 12/08/21 please schedule and call pt to let them know thanks I put a phone for dr to place orders for hydration documented in this encounter [facility] 12-07-2021 History of Present illness Narrative [facility]Sight [facility] Engagement Provider Action/FYI: Call to Pt left a message to verify COPD symptom status and needs. Contact Made with Patient: No, second attempt, left message. Guy Rousseau. This is Alannah Hi RN your Computer Artist from the [facility]. I am calling to check in with you concerning the MyChart questionnaire you have been receiving from me. I will call you again next week and am looking forward to speaking with you. (Computer Artist enters next week's date in next patient outreach ) Alannah Hi RN December 07, 2021 1:59 PM documented in this encounter [facility] 12-03-2021 History of Present illness Narrative [facility] TELEPHONIC OUTREACH Provider Action/FYI: Call to Pt left a message to verify COPD/ CKD or other symptom status or needs. Contact made with patient: No - Left message Guy my name is Alannah Hi RN your Computer Artist from the [facility] I am calling today for your bi-weekly check in. I am sorry I missed your call. I will reach out to you again tomorrow. (if the third call I will reach out to you again next week) Enter next patient outreach date for the following business day using the Track Pt Outreach. End outreach. Alannah Hi RN December 03, 2021 4:27 PM documented in this encounter [facility] 11-24-2021 History of Present illness Narrative This office note has been dictated. Angélica Trevino DO documented in this encounter [facility] 11-20-2021 History of Present illness Narrative INSIGHT [facility] TELEPHONIC OUTREACH Provider Action/FYI: Call to Pt left a message related to COPD / CKD /Leg edema symptom status and needs. Contact made with patient: No - Left message Hello my name is Alannah Hi RN your Computer Artist from the [facility] I am calling today for your bi-weekly check in. I am sorry I missed your call. I will reach out to you again tomorrow. (if the third call I will reach out to you again next week) Enter next patient outreach date for the following business day using the Track Pt Outreach. End outreach. Alannah Hi RN November 20, 2021 4:21 PM documented in this encounter [facility] 11-19-2021 Miscellaneous Notes Spoke to patient to schedule appointment with dr. Trevino. Encounter closed. documented in this encounter [facility] 11-17-2021 History of Present illness Narrative INSIGHT [facility] TELEPHONIC OUTREACH Provider Action/FYI: Call to Pt left a message to verify COPD or other symptoms and needs. Contact made with patient: No - Left message Hello my name is Alannah Hi RN your Computer Artist from the [facility] I am calling today for your bi-weekly check in. I am sorry I missed your call. I will reach out to you again tomorrow. (if the third call I will reach out to you again next week) Enter next patient outreach date for the following business day using the Track Pt Outreach. End outreach. Alannah Hi RN November 17, 2021 12:28 PM documented in this encounter [facility] 11-12-2021 History of Present illness Narrative [facility] TELEPHONIC OUTREACH Provider Action/FYI: Call to Pt left a message to verify COPD/ CKD or other symptoms or concerns. Contact made with patient: No - Left message Guy my name is Alannah Hi RN your Computer Artist from the [facility] I am calling today for your bi-weekly check in. I am sorry I missed your call. I will reach out to you again tomorrow. (if the third call I will reach out to you again next week) Enter next patient outreach date for the following day using the Track Pt Outreach. End outreach. Alannah Hi RN November 12, 2021 4:56 PM documented in this encounter [facility] 11-11-2021 Instructions Chanelle Hagen APRN.CNP - 11/11/2021 9:06 AM EDT 1.) Schedule appointment for vascular testing and appointment for Dr. Trevino. 2.) May try taking 50 mg of Aldactone (water pill) to see if you can get some improvement with swelling. 3.) Continue to wear compression socks and elevate the legs. Follow up as needed. documented in this encounter [facility] 11-11-2021 History of Present illness Narrative This is a 86 year old female who presents today with: Patient presents with: Acute Visit: Bilat feef and ankle swelling HISTORY OF PRESENT ILLNESS: Chanel Rousseau is a 86 year old female. Patient presents with: Acute Visit: Bilat feef and ankle swelling Patient of Dr. Dunn here in the office for concerns of edema in bilateral feet and ankle. Started about 1 week ago. Had similar occurrence in July, saw Dr. Trevino (Vascular), was instructed to use support socks. Has been wearing socks/elevating legs and has not noticed a difference. Swelling can be painful at time. Denies any chest pain, palpitations, or new SOB. PAST MEDICAL HISTORY: PAST MEDICAL HISTORY Diagnosis Date Basal cell carcinoma Carotid stenosis,asymptomatic bilateral CKD (chronic kidney disease) stage 3, GFR 30-59 ml/min ([facility]) 07/30/2018 COPD (chronic obstructive pulmonary disease) ([facility]) Dr Jovel mud analysis supervisor Diverticulosis of colon (without mention of hemorrhage) Diverticulosis Hypertension Rolly Smith MD Osteoporosis, unspecified Personal history of colonic polyps Colon polyps Restless legs syndrome (RLS) TIA (transient ischemic attack) 2008 Plavix PAST SURGICAL HISTORY Procedure Laterality Date CAROTID ENDARTERECTOMY Left 01/23/2021 COLONOSCOPY FLX DX W/COLLJ SPEC WHEN PFRMD 03/25/2004 Colonoscopy CYSTOSCOPY 06/02/2012 left ureteral calculi ESOPHAGOGASTRODUODENOSCOPY TRANSORAL DIAGNOSTIC 03/25/2004 EGD PAST SURGICAL HISTORY OF 04/15/2004 right inferior parathyroidectomy TOTAL ABDOMINAL HYSTERECT W/WO RMVL TUBE OVARY 05/18/1971 Hysterectomy, JENNY, LSO carcinoma insitu ALLERGIES Amlodipine, Aspirin, Lisinopril, and Requip [Ropinirole] MEDICATIONS Current Outpatient Medications Medication Sig budesonide (PULMICORT) 0.5 mg/2 mL nebulizer solution INHALE THE CONTENTS OF 1 VIAL (2 ML) VIA NEBULIZER TWICE A DAY. USE EVERY 12 HOURS OVER 5 TO 15 MINUTES. ipratropium (ATROVENT) 0.02 % nebulizer solution USE 1 VIAL (2.5 ML) VIA NEBULIZER FOUR TIMES A DAY OVER 5 TO 15 MINUTES FOR WHEEZING OR SHORTNESS OF BREATH albuterol (PROVENTIL) 2.5 mg /3 mL (0.083 %) nebulizer solution USE 1 VIAL (3 ML) VIA NEBULIZER FOUR TIMES A DAY OVER 5 TO 15 MINUTES FOR WHEEZING AND SHORTNESS OF BREATH spironolactone (ALDACTONE) 25 mg tablet Take 1 tablet by mouth once daily. Take one additional 25 mg spironolactone for SBP greater than 150 losartan-hydroCHLOROthiazide (HYZAAR) 100-25 mg per tablet Take 1 tablet by mouth once daily. pramipexole (MIRAPEX) 1 mg tablet Take 1 tablet by mouth daily at bedtime. clopidogrel (PLAVIX) 75 mg tablet Take 1 tablet by mouth once daily. atorvastatin (LIPITOR) 40 mg tablet Take 1 tablet by mouth once daily. IPRATROPIUM BROMIDE INHALATION Inhale as instructed. albuterol HFA (VENTOLIN HFA) 90 mcg/actuation inhaler Inhale 2 Puffs as instructed every 4 hours as needed for wheezing/shortness of breath. May take 2 puffs prior to exercise furosemide (LASIX) 40 mg tablet Take 40 mg by mouth once daily. carvedilol (COREG) 6.25 mg tablet Take 2 tablets by mouth twice daily. (Dr. Smith adjusting) Cholecalciferol, Vitamin D3, 1,000 unit cap Take 1 capsule by mouth once daily. Rdybnoeboimlx-Zzzshuqz-Hpsmrb (CENTRUM SILVER) ORAL Tab Take one(1) tablet daily. No current facility-administered medications for this visit. FAMILY HISTORY Problem Relation Age of Onset Diabetes Mother Heart Mother None Father hx unknown Heart Brother Diabetes Brother Cancer Brother Lung, 1/2 brother. Asthma No Family History COPD No Family History Emphysema No Family History Social History Tobacco Use Smoking status: Former Smoker Packs/day: 1.00 Years: 53.00 Pack years: 53.00 Types: Cigarettes Start date: 08/11/1961 Quit date: 10/04/2016 Years since quittin.1 Smokeless tobacco: Never Used Tobacco comment: 10-20 year period in 30-40s when quit. Vaping Use Vaping Use: Never used Substance Use Topics Alcohol use: Yes Comment: very seldom Drug use: No REVIEW OF SYSTEMS GENERAL: No weight loss, malaise or fevers/chills HEENT: Negative for frequent or significant headaches, No changes in hearing or vision. NECK: Negative for lumps, goiter, pain and significant neck swelling RESPIRATORY: Negative for cough, hemoptysis, wheezing, dyspnea or shortness of breath CARDIOVASCULAR: + Bilateral foot/ankle edema GI: No nausea, vomiting, or diarrhea/constipation. No hematochezia/melena. No heartburn or reflux symptoms. : No history of dysuria, frequency or incontinence MUSCULOSKELETAL: Negative for joint pain or swelling. SKIN: Negative for lesions, rash, and itching ENDOCRINE: Negative for cold or heat intolerance, polyuria, polydipsia and goiter NEURO: No history of headaches, syncope, paralysis, seizures or tremors MOOD: Negative for depression, anxiety, or suicidal ideation. EXAM: BP 150/68 Pulse 77 Resp 16 Wt 78.9 kg (174 lb) SpO2 97% BMI 31.83 kg/m PHYSICAL EXAM: General Appearance: Well appearing, alert, in no acute distress, well-hydrated, well nourished. Skin: Skin color, texture, turgor normal, no suspicious rashes or lesions. Head: Normocephalic, no masses, lesions, tenderness or abnormalities. Eyes: Anicteric sclera. Extraocular movements are intact. Lungs: Lungs clear to auscultation. No wheezing, rhonchi, rales. Heart: RRR without murmur, gallop, or rubs. No ectopy. Extremities: Pulses: 1+, Edema: Mild non-pitting edema noted to bilateral ankle/feet, skin of feet are dusky blue but warm to touch. Peripheral Pulses: Capillary refill <2secs, strong peripheral pulses, Normal except for pedal pulses +1. ASSESSMENT/PLAN: 1. PAD (peripheral artery disease) (HCC) - ICD9: 443.9, ICD10: I73.9 - Due to worsening symptoms recommend follow up with Dr. Trevino. - PVR studies were ordered by specialist in August. Instructed patient to have completed. - Continue with compression sock and elevate feet. - May double the Aldactone, total of 50 mg to see if swelling improves. - Red flag symptoms given to patient, she verbalizes understanding when to seek emergency care. Follow-up as needed or sooner if symptoms get worse or do not improve. Discussed treatment plan and patient voices understanding. Patient's questions answered appropriately. Medications and potential side effects were discussed and patient voices understanding. Chanelle Hagen APRN.CORINNA This note was partially generated using [email or web address] voice recognition system. Note was reviewed for accuracy. There may be minor misspellings or grammar miscues with [email or web address] voice recognition. documented in this encounter [facility] 11-10-2021 Miscellaneous Notes Mady Dunn MD out of office. Should be ok as scheduled Protocol Recommended: See PCP within 24 hours. No appts available in next 24 hours in Internal medicine. Appt made on 11/11 with Cahnelle Hagen for 9am, if provider agreeable. Please call patient if provider does not agree or if other instruction to patient is needed. Will route this message to Dr. Dunn and Chanelle Hagen for update/review. Thank you. Reason for Disposition [1] Very swollen ankle AND [2] no fever Answer Assessment - Initial Assessment Questions 1. LOCATION: Bilateral foot and ankle swelling x 1 week. States she has had this before. 2. ONSET: about a week ago 3. SIZE: moderately swollen, even with compression hose. Is able to wear her shoes. 4. PAIN: no 5. CAUSE: Patient unsure. Has had this happen about 3 months ago and was ordered compression hose which she has been wearing without much effect recently. 6. OTHER SYMPTOMS: Some increased warmth to both feet but no redness. Denies fever or chest pain. States she has chronic shortness of breath with exertion. No SOB at rest or currently. Reports she does take diuretics. Protocols used: ANKLE [id number] documented in this encounter [facility] 10-29-2021 History of Present illness Narrative INSIGHT CD TELEPHONIC OUTREACH Provider Action/FYI: Call to Pt left a message to verify COPD/ CKD symptom status, needs. Contact made with patient: No - Left message Guy my name is Alannah Hi RN your Computer Artist from the [facility] I am calling today for your bi-weekly check in. I am sorry I missed your call. I will reach out to you again tomorrow. (if the third call I will reach out to you again next week) Enter next patient outreach date for the following business day using the Track Pt Outreach. End outreach. Alannah Hi RN October 29, 2021 5:16 PM documented in this encounter [facility] 10-21-2021 History of Present illness Narrative INSIGHT CDM TELEPHONIC OUTREACH Provider Action/FYI: Call to Pt left a message to verify COPD/ CKD symptom status, needs. Contact made with patient: No - Left message Guy my name is Alannah Hi RN your Computer Artist from the [facility] I am calling today for your bi-weekly check in. I am sorry I missed your call. I will reach out to you again tomorrow. (if the third call I will reach out to you again next week) Enter next patient outreach date for the following day using the Track Pt Outreach. End outreach. Alannah Hi RN October 21, 2021 1:17 PM documented in this encounter [facility] documented as of this encounter (statuses as of 10/21/2021) [facility] of Past illness Narrative* Problem Noted Date Resolved Date HTN (hypertension) 12/11/2014 04/07/2015 documented as of this encounter (statuses as of 10/29/2021) [facility] Narrative* Problem Noted Date Resolved Date HTN (hypertension) 12/11/2014 04/07/2015 documented as of this encounter (statuses as of 11/09/2021) [facility] Narrative* Problem Noted Date Resolved Date HTN (hypertension) 12/11/2014 04/07/2015 documented as of this encounter (statuses as of 11/10/2021) [facility] N[facility]ative* Problem Noted Date Resolved Date HTN (hypertension) 12/11/2014 04/07/2015 documented as of this encounter (statuses as of 11/11/2021) [facility] Narrative* Problem Noted Date Resolved Date HTN (hypertension) 12/11/2014 04/07/2015 documented as of this encounter (statuses as of 11/12/2021) [facility] N[facility]ative* Problem Noted Date Resolved Date HTN (hypertension) 12/11/2014 04/07/2015 documented as of this encounter (statuses as of 11/17/2021) [place] [id number] History of Past illness Narrative* Problem Noted Date Resolved Date HTN (hypertension) 12/11/2014 04/07/2015 documented as of this encounter (statuses as of 11/19/2021) [facility] Narrative* Problem Noted Date Resolved Date HTN (hypertension) 12/11/2014 04/07/2015 documented as of this encounter (statuses as of 11/20/2021) [facility] Narrative* Problem Noted Date Resolved Date HTN (hypertension) 12/11/2014 04/07/2015 documented as of this encounter (statuses as of 11/24/2021) [facility] N[facility]ative* Problem Noted Date Resolved Date HTN (hypertension) 12/11/2014 04/07/2015 documented as of this encounter (statuses as of 12/03/2021) [facility] Narrative* Problem Noted Date Resolved Date HTN (hypertension) 12/11/2014 04/07/2015 documented as of this encounter (statuses as of 12/07/2021) [address]27-2015 History of Past illness Narrative* Problem Noted Date Resolved Date HTN (hypertension) 12/11/2014 04/07/2015 documented as of this encounter (statuses as of 12/08/2021) [facility] N[facility]ative* Problem Noted Date Resolved Date HTN (hypertension) 12/11/2014 04/07/2015 documented as of this encounter (statuses as of 12/09/2021) [address]-2015 History of Past illness Narrative* Problem Noted Date Resolved Date HTN (hypertension) 12/11/2014 04/07/2015 documented as of this encounter (statuses as of 12/09/2021) [facility] Narrative* Problem Noted Date Resolved Date HTN (hypertension) 12/11/2014 04/07/2015 documented as of this encounter (statuses as of 12/23/2021) [address]-2015 History of Past illness Narrative* Problem Noted Date Resolved Date HTN (hypertension) 12/11/2014 04/07/2015 documented as of this encounter (statuses as of 12/25/2021) [address]2015 History of Past illness Narrative* Problem Noted Date Resolved Date HTN (hypertension) 12/11/2014 04/07/2015 documented as of this encounter (statuses as of 12/28/2021) [facility] Narrative* Problem Noted Date Resolved Date HTN (hypertension) 12/11/2014 04/07/2015 documented as of this encounter (statuses as of 01/05/2022) [address]2015 History of Past illness Narrative* Problem Noted Date Resolved Date HTN (hypertension) 12/11/2014 04/07/2015 documented as of this encounter (statuses as of 01/06/2022) [facility] Narrative* Problem Noted Date Resolved Date HTN (hypertension) 12/11/2014 04/07/2015 documented as of this encounter (statuses as of 01/25/2022) [address]27-2015 History of Past illness Narrative* Problem Noted Date Resolved Date HTN (hypertension) 12/11/2014 04/07/2015 documented as of this encounter (statuses as of 02/01/2022) [address]27-2015 History of Past illness Narrative* Problem Noted Date Resolved Date HTN (hypertension) 12/11/2014 04/07/2015 documented as of this encounter (statuses as of 02/04/2022) [address]27-2015 History of Past illness Narrative* Problem Noted Date Resolved Date HTN (hypertension) 12/11/2014 04/07/2015 documented as of this encounter (statuses as of 02/25/2022) [address]27-2015 History of Past illness Narrative* Problem Noted Date Resolved Date HTN (hypertension) 12/11/2014 04/07/2015 documented as of this encounter (statuses as of 03/05/2022) [address]27-2015 History of Past illness Narrative* Problem Noted Date Resolved Date HTN (hypertension) 12/11/2014 04/07/2015 documented as of this encounter (statuses as of 03/09/2022) [address]27-2015 History of Past illness Narrative* Problem Noted Date Resolved Date HTN (hypertension) 12/11/2014 04/07/2015 documented as of this encounter (statuses as of 03/29/2022) [address]27[address]2015 History of Past illness Narrative* Problem Noted Date Resolved Date HTN (hypertension) 12/11/2014 04/07/2015 documented as of this encounter (statuses as of 03/29/2022) [address]27[address]2015 History of Past illness Narrative* Problem Noted Date Resolved Date HTN (hypertension) 12/11/2014 04/07/2015 documented as of this encounter (statuses as of 03/30/2022) [address]27-2015 History of Past illness Narrative* Problem Noted Date Resolved Date HTN (hypertension) 12/11/2014 04/07/2015 documented as of this encounter (statuses as of 04/05/2022) [address]27-2015 History of Past illness Narrative* Problem Noted Date Resolved Date HTN (hypertension) 12/11/2014 04/07/2015 documented as of this encounter (statuses as of 04/15/2022) [address]27[address]2015 History of Past illness Narrative* Problem Noted Date Resolved Date HTN (hypertension) 12/11/2014 04/07/2015 documented as of this encounter (statuses as of 04/16/2022) [address]27-2015 History of Past illness Narrative* Problem Noted Date Resolved Date HTN (hypertension) 12/11/2014 04/07/2015 documented as of this encounter (statuses as of 04/19/2022) [address]27-2015 History of Past illness Narrative* Problem Noted Date Resolved Date HTN (hypertension) 12/11/2014 04/07/2015 documented as of this encounter (statuses as of 04/22/2022) [address]27-2015 History of Past illness Narrative* Problem Noted Date Resolved Date HTN (hypertension) 12/11/2014 04/07/2015 documented as of this encounter (statuses as of 04/27/2022) [address]27-2015 History of Past illness Narrative* Problem Noted Date Resolved Date HTN (hypertension) 12/11/2014 04/07/2015 documented as of this encounter (statuses as of 04/27/2022) [address]27-2015 History of Past illness Narrative* Problem Noted Date Resolved Date HTN (hypertension) 12/11/2014 04/07/2015 documented as of this encounter (statuses as of 04/28/2022) [address]27-2015 History of Past illness Narrative* Problem Noted Date Resolved Date HTN (hypertension) 12/11/2014 04/07/2015 documented as of this encounter (statuses as of 04/30/2022) [address]27-2015 History of Past illness Narrative* Problem Noted Date Resolved Date HTN (hypertension) 12/11/2014 04/07/2015 documented as of this encounter (statuses as of 05/19/2022) [address]27-2015 History of Past illness Narrative* Problem Noted Date Resolved Date HTN (hypertension) 12/11/2014 04/07/2015 documented as of this encounter (statuses as of 05/28/2022) [address]27-2015 History of Past illness Narrative* Problem Noted Date Resolved Date HTN (hypertension) 12/11/2014 04/07/2015 documented as of this encounter (statuses as of 06/16/2022) [address]27-2015 History of Past illness Narrative* Problem Noted Date Resolved Date HTN (hypertension) 12/11/2014 04/07/2015 documented as of this encounter (statuses as of 06/16/2022) [address]27-2015 History of Past illness Narrative* Problem Noted Date Resolved Date HTN (hypertension) 12/11/2014 04/07/2015 documented as of this encounter (statuses as of 06/29/2022) [address]27-2015 History of Past illness Narrative* Problem Noted Date Resolved Date HTN (hypertension) 12/11/2014 04/07/2015 documented as of this encounter (statuses as of 07/26/2022) [address]27-2015 History of Past illness Narrative* Problem Noted Date Resolved Date HTN (hypertension) 12/11/2014 04/07/2015 documented as of this encounter (statuses as of 07/29/2022) [address]27-2015 History of Past illness Narrative* Problem Noted Date Resolved Date HTN (hypertension) 12/11/2014 04/07/2015 documented as of this encounter (statuses as of 08/02/2022) [address]27-2015 History of Past illness Narrative* Problem Noted Date Resolved Date HTN (hypertension) 12/11/2014 04/07/2015 documented as of this encounter (statuses as of 08/06/2022) [address]27-2015 History of Past illness Narrative* Problem Noted Date Resolved Date HTN (hypertension) 12/11/2014 04/07/2015 documented as of this encounter (statuses as of 08/10/2022) [address]27-2015 History of Past illness Narrative* Problem Noted Date Resolved Date HTN (hypertension) 12/11/2014 04/07/2015 documented as of this encounter (statuses as of 08/11/2022) [address]27-2015 History of Past illness Narrative* Problem Noted Date Resolved Date HTN (hypertension) 12/11/2014 04/07/2015 documented as of this encounter (statuses as of 09/03/2022) [address]27[address]2015 History of Past illness Narrative* Problem Noted Date Resolved Date HTN (hypertension) 12/11/2014 04/07/2015 documented as of this encounter (statuses as of 09/03/2022) [address]27[address]2015 History of Past illness Narrative* Problem Noted Date Resolved Date HTN (hypertension) 12/11/2014 04/07/2015 documented as of this encounter (statuses as of 09/03/2022) [address]27-2015 History of Past illness Narrative* Problem Noted Date Resolved Date HTN (hypertension) 12/11/2014 04/07/2015 documented as of this encounter (statuses as of 09/06/2022) [address]27-2015 History of Past illness Narrative* Problem Noted Date Resolved Date HTN (hypertension) 12/11/2014 04/07/2015 documented as of this encounter (statuses as of 09/19/2022) [address]27-2015 History of Past illness Narrative* Problem Noted Date Resolved Date HTN (hypertension) 12/11/2014 04/07/2015 documented as of this encounter (statuses as of 09/27/2022) [address]27-2015 History of Past illness Narrative* Problem Noted Date Resolved Date HTN (hypertension) 12/11/2014 04/07/2015 documented as of this encounter (statuses as of 09/27/2022) [address]27-2015 History of Past illness Narrative* Problem Noted Date Resolved Date HTN (hypertension) 12/11/2014 04/07/2015 documented as of this encounter (statuses as of 10/04/2022) [address]27-2015 History of Past illness Narrative* Problem Noted Date Resolved Date HTN (hypertension) 12/11/2014 04/07/2015 documented as of this encounter (statuses as of 10/18/2022) [facility] Narrative* Problem Noted Date Resolved Date HTN (hypertension) 12/11/2014 04/07/2015 documented as of this encounter (statuses as of 10/20/2022) [facility] Past [facility] Narrative* Problem Noted Date Resolved Date HTN (hypertension) 12/11/2014 04/07/2015 documented as of this encounter (statuses as of 10/29/2022) [facility] Narrative* Problem Noted Date Resolved Date HTN (hypertension) 12/11/2014 04/07/2015 documented as of this encounter (statuses as of 10/30/2022) [address]27[address]2015 History of Past illness Narrative* Problem Noted Date Resolved Date HTN (hypertension) 12/11/2014 04/07/2015 documented as of this encounter (statuses as of 11/19/2022) [address]27[address]2015 History of Past illness Narrative* Problem Noted Date Resolved Date HTN (hypertension) 12/11/2014 04/07/2015 documented as of this encounter (statuses as of 12/15/2022) [address]27-2015 History of Past illness Narrative* Problem Noted Date Resolved Date HTN (hypertension) 12/11/2014 04/07/2015 documented as of this encounter (statuses as of 12/22/2022) [address]27[address]2015 History of Past illness Narrative* Problem Noted Date Resolved Date HTN (hypertension) 12/11/2014 04/07/2015 documented as of this encounter (statuses as of 12/22/2022) [address]27-2015 History of Past illness Narrative* Problem Noted Date Resolved Date HTN (hypertension) 12/11/2014 04/07/2015 documented as of this encounter (statuses as of 12/30/2022) [address]27-2015 History of Past illness Narrative* Problem Noted Date Resolved Date HTN (hypertension) 12/11/2014 04/07/2015 documented as of this encounter (statuses as of 12/31/2022) [facility] Narrative* Problem Noted Date Resolved Date HTN (hypertension) 12/11/2014 04/07/2015 documented as of this encounter (statuses as of 01/08/2023) [facility] Narrative* Problem Noted Date Resolved Date HTN (hypertension) 12/11/2014 04/07/2015 documented as of this encounter (statuses as of 01/11/2023) [facility] Narrative* Problem Noted Date Diagnosed Date Resolved Date HTN (hypertension) 12/11/2014 5 documented as of this encounter (statuses as of 02/19/2023) [facility]* Problem Noted Date Diagnosed Date Resolved Date HTN (hypertension) 12/11/2014 5 documented as of this encounter (statuses as of 03/12/2023) [facility]* Problem Noted Date Diagnosed Date Resolved Date HTN (hypertension) 12/11/2014 5 documented as of this encounter (statuses as of 03/23/2023) [facility]* Problem Noted Date Diagnosed Date Resolved Date HTN (hypertension) 12/11/2014 5 documented as of this encounter (statuses as of 04/02/2023) [facility]* Problem Noted Date Diagnosed Date Resolved Date HTN (hypertension) 12/11/2014 5 documented as of this encounter (statuses as of 04/04/2023) [facility]* Problem Noted Date Diagnosed Date Resolved Date HTN (hypertension) 12/11/2014 5 documented as of this encounter (statuses as of 04/09/2023) [facility]* Problem Noted Date Diagnosed Date Resolved Date HTN (hypertension) 12/11/2014 5 documented as of this encounter (statuses as of 04/19/2023) [facility]* Problem Noted Date Diagnosed Date Resolved Date HTN (hypertension) 12/11/2014 5 documented as of this encounter (statuses as of 04/26/2023) [address]2015 History of Past illness Narrative* Problem Noted Date Diagnosed Date Resolved Date HTN (hypertension) 12/11/2014 5 documented as of this encounter (statuses as of 04/29/2023) [facility]* Problem Noted Date Diagnosed Date Resolved Date HTN (hypertension) 12/11/2014 5 documented as of this encounter (statuses as of 05/02/2023) [address]27[address]2015 History of Past illness Narrative* Problem Noted Date Diagnosed Date Resolved Date HTN (hypertension) 12/11/2014 5 documented as of this encounter (statuses as of 05/06/2023) [address]27[address]2015 History of Past illness Narrative* Problem Noted Date Diagnosed Date Resolved Date HTN (hypertension) 12/11/2014 5 documented as of this encounter (statuses as of 05/06/2023) [address]27[address]2015 History of Past illness Narrative* Problem Noted Date Diagnosed Date Resolved Date HTN (hypertension) 12/11/2014 5 documented as of this encounter (statuses as of 05/19/2023) [address]27[address]2015 History of Past illness Narrative* Problem Noted Date Diagnosed Date Resolved Date HTN (hypertension) 12/11/2014 5 documented as of this encounter (statuses as of 05/20/2023) [address]27[address]2015 History of Past illness Narrative* Problem Noted Date Diagnosed Date Resolved Date HTN (hypertension) 12/11/2014 5 documented as of this encounter (statuses as of 05/20/2023) [address]27[address]2015 History of Past illness Narrative* Problem Noted Date Diagnosed Date Resolved Date HTN (hypertension) 12/11/2014 5 documented as of this encounter (statuses as of 05/20/2023) [address]27[address]2015 History of Past illness Narrative* Problem Noted Date Diagnosed Date Resolved Date HTN (hypertension) 12/11/2014 5 documented as of this encounter (statuses as of 05/24/2023) [facility]* Problem Noted Date Diagnosed Date Resolved Date HTN (hypertension) 12/11/2014 5 documented as of this encounter (statuses as of 07/01/2023) [facility]* Problem Noted Date Diagnosed Date Resolved Date HTN (hypertension) 12/11/2014 5 documented as of this encounter (statuses as of 07/02/2023) [facility] N[facility]ative* Problem Noted Date Diagnosed Date Resolved Date HTN (hypertension) 12/11/2014 5 documented as of this encounter (statuses as of 07/08/2023) [facility] Diagnosis PAD (peripheral artery disease) (HCC)- Primary Peripheral vascular disease, unspecified [facility] Diagnosis Venous (peripheral) insufficiency- Primary Unspecified venous (peripheral) insufficiency Peripheral vascular disease (HCC) Peripheral vascular disease, unspecified Screening for nephropathy [facility] Diagnosis Peripheral vascular disease (HCC)- Primary Peripheral vascular disease, unspecified [facility] Diagnosis Peripheral vascular disease (HCC) Peripheral vascular disease, unspecified [facility] Diagnosis Renal mass- Primary Unspecified disorder of kidney and ureter [facility] Diagnosis 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 Renal mass Unspecified disorder of kidney and ureter [facility] Diagnosis Insomnia, unspecified type- Primary Encounter for immunization Need for other specified prophylactic vaccination against single bacterial disease Constipation, unspecified constipation type Primary hypertension Unspecified essential hypertension Stage 3a chronic kidney disease (HCC) Simple chronic bronchitis (HCC) Simple chronic bronchitis [facility] note* Diagnosis COPD, mild (HCC)- Primary Chronic airway obstruction, not elsewhere classified Allergic rhinitis, unspecified seasonality, unspecified trigger Former smoker Personal history of tobacco use, presenting hazards to health [facility] Diagnosis Venous (peripheral) insufficiency- Primary Unspecified venous (peripheral) insufficiency [facility] Diagnosis Venous (peripheral) insufficiency- Primary Unspecified venous (peripheral) insufficiency Peripheral vascular disease (HCC) Peripheral vascular disease, unspecified Stenosis of left carotid artery Occlusion and stenosis of carotid artery without mention of cerebral infarction [facility]* Diagnosis Exercise-induced asthma Exercise induced bronchospasm 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) [facility]* Diagnosis Stage 1 mild COPD by GOLD classification ([facility]) [facility]* Diagnosis COPD, mild (HCC) Chronic airway obstruction, not elsewhere classified [facility] Diagnosis Other specified disorders of kidney and ureter 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 [facility]* Diagnosis Restrictive lung disease- Primary Other diseases of lung, not elsewhere classified Chronic obstructive pulmonary disease, unspecified COPD type (HCC) Peripheral edema Edema [facility] Diagnosis SOB (shortness of breath) Shortness of breath [facility]* Diagnosis Renal mass- Primary Unspecified disorder of kidney and ureter 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 [facility] Diagnosis Chronic obstructive pulmonary disease with acute exacerbation (HCC)- Primary Obstructive chronic bronchitis with exacerbation [facility]* Diagnosis COPD with exacerbation (HCC)- Primary Obstructive chronic bronchitis with exacerbation Opacity noted on imaging study Other nonspecific (abnormal) findings on radiological and other examinations of body structure Former cigarette smoker Personal history of tobacco use, presenting hazards to health Atelectasis Pulmonary collapse Need for influenza vaccination Need for prophylactic vaccination and inoculation against influenza [facility]* Diagnosis COPD with exacerbation (HCC)- Primary Obstructive chronic bronchitis with exacerbation Stage 1 mild COPD by GOLD classification ([facility]) Insomnia, unspecified type [facility]* Diagnosis Chronic obstructive pulmonary disease, unspecified COPD type (HCC)- Primary Eustachian tube dysfunction, bilateral 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) COPD with exacerbation (HCC) Obstructive chronic bronchitis with exacerbation Vitamin D deficiency Unspecified vitamin D deficiency Stage 3a chronic kidney disease (HCC) Essential hypertension Unspecified essential hypertension Lymphedema of both lower extremities Stasis edema of both lower extremities Encounter for long-term current use of medication [facility] Diagnosis COPD with exacerbation (HCC) Obstructive chronic bronchitis with exacerbation [facility]* Diagnosis Exercise-induced asthma Exercise induced bronchospasm Stage 1 mild COPD by GOLD classification ([facility]) [facility]* Diagnosis Acute cough- Primary COPD with exacerbation (HCC) Obstructive chronic bronchitis with exacerbation [facility]* Diagnosis 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 [facility]* Diagnosis Lymphedema of both lower extremities Stasis edema of both lower extremities [facility]* Diagnosis Left lower quadrant abdominal pain- Primary Diverticulitis Diverticulitis of colon (without mention of hemorrhage) [facility]* Diagnosis Chronic bilateral thoracic back pain- Primary Lumbar pain Lumbago Stasis edema of both lower extremities Lymphedema of both lower extremities Encounter for therapeutic drug monitoring Need for influenza vaccination Need for prophylactic vaccination and inoculation against influenza Primary hypertension Unspecified essential hypertension Stage 3a chronic kidney disease (HCC) [facility]* Diagnosis Chronic bilateral thoracic back pain- Primary Lumbar pain Lumbago [facility] Diagnosis Chronic bilateral thoracic back pain- Primary Lumbar pain Lumbago [facility] Diagnosis Chronic bilateral thoracic back pain- Primary Primary hypertension Unspecified essential hypertension Osteopenia of lumbar spine Encounter for screening for osteoporosis Special screening for osteoporosis Asymptomatic postmenopausal status [facility]* Diagnosis Stage 3 chronic kidney disease, unspecified whether stage 3a or 3b CKD (HCC)- Primary [facility]* Diagnosis Interstitial pulmonary disease (HCC) Postinflammatory pulmonary fibrosis Abnormal chest x-ray Other nonspecific abnormal finding of lung field [facility]* Diagnosis Opacity noted on imaging study Other nonspecific (abnormal) findings on radiological and other examinations of body structure Former cigarette smoker Personal history of tobacco use, presenting hazards to health Atelectasis Pulmonary collapse [facility]* Diagnosis Osteopenia of lumbar spine [facility] Diagnosis Primary hypertension- Primary Unspecified essential hypertension Stasis edema of both lower extremities Osteopenia of lumbar spine Lumbar pain Lumbago [facility] Diagnosis COPD with exacerbation (HCC)- Primary Obstructive chronic bronchitis with exacerbation Hypoxia Hypoxemia documented in this encounter [facility] for referral (narrative)* Diagnostic Procedure Only (Routine) - Authorized Specialty Diagnoses / Procedures Referred By Jesus lynch Referred To Contact US IMAGING Diagnoses Renal mass 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 Procedures US KIDNEY/BLADDER US RETROPERITONEAL REAL TIME W/IMAGE COMPLETE Spencer Boone MD [address] [place] [address] Us Imaging Referral ID Status Reason Start Date Expiration Date Visits Requested Visits Authorized [id number] Authorized Auto-Generat ed Referral 12/28/2021 01/27/2023 1 1 * Diagnostic Procedure Only (Routine) - Authorized Specialty Diagnoses / Procedures Referred By Jesus lynch Referred To Contact US IMAGING Diagnoses Renal mass 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 Procedures US KIDNEY/BLADDER US RETROPERITONEAL REAL TIME W/IMAGE COMPLETE Spencer Boone MD [address] [place] [address] Us Imaging Referral ID Status Reason Start Date Expiration Date Visits Requested Visits Authorized [id number] Authorized Auto-Generat ed Referral 12/28/2021 01/27/2023 1 1 [facility] for referral (narrative)* Outpatient Procedure (Routine) - Pending Review Specialty Diagnoses / Procedures Referred By Jesus lynch Referred To Contact [facility] Diagnoses COPD, mild (HCC) Procedures SPIROMETRY BASELINE ONLY SPMTRY W/VC EXPIRATORY [place] W/WO MXML VOL VNTJ Ana Hernandez, AALIYAH [address] [address] [facility] [place] [address] [place] [address] Referral ID Status Reason Start Date Expiration Date Visits Requested Visits Authorized [id number] Pending Review Auto-Generat ed Referral 02/04/2022 03/06/2023 1 1 [facility] for referral (narrative)* Diagnostic Procedure Only (Routine) - Pending Review Specialty Diagnoses / Procedures Referred By Jesus t Referred To Contact US IMAGING Diagnoses Renal mass 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 Procedures US KIDNEY/BLADDER US RETROPERITONEAL REAL TIME W/IMAGE COMPLETE Spencer Boone MD [address] [place] [address] Us Imaging Referral ID Status Reason Start Date Expiration Date Visits Requested Visits Authorized [id number] Pending Review Auto-Generat ed Referral 05/28/2023 1 1 [facility] for referral (narrative)* Diagnostic Procedure Only (Routine) - Pending Review Specialty Diagnoses / Procedures Referred By Jesus lynch Referred To Contact US IMAGING Diagnoses 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 Procedures US KIDNEY/BLADDER US RETROPERITONEAL REAL TIME W/IMAGE COMPLETE Spencer oBone MD [address] [place] [address] Us Imaging Referral ID Status Reason Start Date Expiration Date Visits Requested Visits Authorized [id number] Pending Review Auto-Generat ed Referral 12/15/2022 01/14/2024 1 1 T [facility] Advance Directives No Advanced Directives Records FoundDocuments on File Type Date Recorded Patient Clinical Product Specialist Expl anation Advance Directive(s) 01/23/2021 6:10 AM Advance Directive(s) 10/27/2011 12:00 AM Advance Directive(s) 09/02/2006 12:00 AM Documents on File Type Date Recorded Patient Clinical Product Specialist Expl anation Advance Directive(s) 01/23/2021 6:10 AM Advance Directive(s) 10/27/2011 12:00 AM Advance Directive(s) 09/02/2006 12:00 AM Documents on File Type Date Recorded Patient Clinical Product Specialist Expl anation Advance Directive(s) 10/27/2011 Advance Directive(s) 09/02/2006 Documents on File Type Date Recorded Patient Clinical Product Specialist Expl anation Advance Directive(s) 10/27/2011 Advance Directive(s) 09/02/2006 Reason for Referral Specialty Diagnoses / Procedures Referred By Contac t Referred To Contact CT IMAGING Diagnoses Peripheral vascular disease (HCC) Procedures CTA ABD/PEL LOWER EXTREM W IVCON CTA ABDL AORTA&BI ILIOFEM W/CONTRAST&POSTP Angélica Trevino, DO [address] [place] [address] Ct Imaging Referral ID Status Reason Start Date Expiration Date V isits Requested Visits Authorized [id number] Open Auto-Generate d Referral 11/24/2021 12/24/2022 1 1 Referral ID Status Reason Start Date Expiration Date V isits Requested Visits Authorized [id number] Closed Auto-Generate d Referral 11/25/2021 01/09/2022 1 1 Specialty Diagnoses / Procedures Referred By Contac t Referred To Contact Urology Diagnoses Renal mass Procedures CONSULT TO UROLOGY OFFICE/OUTPATIENT NEW HIGH MDM 60-74 MINUTES Angélica rTevino, DO [address] [place] [address] Referral ID Status Reason Start Date Expiration Date Visits Requested Visits Authorized [id number] Authorized PCP Requested Referral 12/09/2021 12/09/2022 1 1 Specialty Diagnoses / Procedures Referred By Contac t Referred To Contact CT IMAGING Diagnoses Other specified disorders of kidney and ureter 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 Procedures CT KIDNEY WO/W IVCON CT ABDOMEN W & W/O CONTRAST Spencer Boone MD [address] [place] [address] Ct Imaging Referral ID Status Reason Start Date Expiration Date V isits Requested Visits Authorized [id number] Closed Auto-Generate d Referral 01/04/2022 02/03/2023 1 1 Specialty Diagnoses / Procedures Referred By Contac t Referred To Contact CT IMAGING Diagnoses Opacity noted on imaging study Former cigarette smoker Atelectasis Procedures CT CHEST WO IVCON DIAGNOSTIC COMPUTED TOMOGRAPHY THORAX W/O CNTRSDora Das MD [address] [facility] [address] Ct Imaging Referral ID Status Reason Start Date Expiration Date Visits Requested Visits Authorized [id number] Pending Review Auto-Generat ed Referral 07/29/2022 08/28/2023 1 1 Specialty Diagnoses / Procedures Referred By Contac t Referred To Contact Dora Kong MD [address] [place] [address] Referral ID Status Reason Start Date Expiration Date Visits Re quested Visits Authorized [id number] Closed 1 1 Specialty Diagnoses / Procedures Referred By Contac t Referred To Contact Diagnoses 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) COPD with exacerbation (HCC) Maddison Valdovinos APRN.[employer] [address] [place] [address] Referral ID Status Reason Start Date Expiration Date Visits Re quested Visits Authorized [id number] Closed 1 1 Specialty Diagnoses / Procedures Referred By Contac t Referred To Contact Gastroenterology Diagnoses Left lower quadrant abdominal pain Diverticulitis Procedures CONSULT TO GASTROENTEROLOGY OFFICE/OUTPATIENT [facility] MDM 60-74 MINUTES Rosaura Suárez APRN.[employer] [address] [place] [address] Referral ID Status Reason Start Date Expiration Date Visits Requested Visits Authorized [id number] Authorized PCP Requested Referral 01/10/2023 01/10/2024 1 1 Specialty Diagnoses / Procedures Referred By Contac t Referred To Contact [facility] Diagnoses Chronic bilateral thoracic back pain Lumbar pain Procedures CONSULT TO PHYSICAL THERAPY PHYSICAL THERAPY EVALUATION HIGH COMPLEX 45 MINS Rosaura Suárez APRN.[employer] [address] [place] [address] [facility] [place] [address] [place] [address] Referral ID Status Reason Start Date Expiration Date Visits Requested Visits Authorized [id number] Authorized Auto-Generat ed Referral 07/18/2022 07/17/2023 99 99 Specialty Diagnoses / Procedures Referred By Contac t Referred To Contact XR IMAGING Diagnoses Lumbar pain Procedures XR LUMBAR GENERAL 3V AP/LAT/L5-S1 RADEX SPINE LUMBOSACRAL 2/3 VIEWS Rosaura Suárez APRN.[employer] [address] [place] [address] [place] [address] Referral ID Status Reason Start Date Expiration Date V isits Requested Visits Authorized [id number] Closed Auto-Generate d Referral 03/23/2023 04/21/2024 1 1 Specialty Diagnoses / Procedures Referred By Contac t Referred To Contact XR IMAGING Diagnoses Chronic bilateral thoracic back pain Procedures XR THORACIC LIMITED 2V AP/LAT RADEX SPINE THORACIC 2 VIEWS Rosaura Suárez APRN.[employer] [address] [place] [address] [place] [address] Referral ID Status Reason Start Date Expiration Date V isits Requested Visits Authorized [id number] Closed Auto-Generate d Referral 03/23/2023 04/21/2024 1 1 Specialty Diagnoses / Procedures Referred By Contac t Referred To Contact Pain Management Diagnoses Chronic bilateral thoracic back pain Procedures CONSULT TO PAIN MGT OFFICE/OUTPATIENT [facility] 60-74 MINUTES Rosaura Suárez APRN.[employer] [address] [place] [address] Referral ID Status Reason Start Date Expiration Date Visits Requested Visits Authorized [id number] Authorized PCP Requested Referral 05/05/2024 1 1 Specialty Diagnoses / Procedures Referred By Contac t Referred To Contact CT IMAGING Diagnoses Interstitial pulmonary disease (HCC) Abnormal chest x-ray Procedures CT CHEST WO IVCON DIAGNOSTIC COMPUTED TOMOGRAPHY THORAX W/O Dora Bran MD [address] [place] [address] [place] [address] Referral ID Status Reason Start Date Expiration Date V isits Requested Visits Authorized [id number] Closed Auto-Generate d Referral 04/27/2022 06/20/2022 1 1 Specialty Diagnoses / Procedures Referred By Contac t Referred To Contact CT IMAGING Diagnoses Opacity noted on imaging study Former cigarette smoker Atelectasis Procedures CT CHEST WO IVCON DIAGNOSTIC COMPUTED TOMOGRAPHY THORAX W/O Dora Bran MD [address] [place] [address] [place] [address] Referral ID Status Reason Start Date Expiration Date V isits Requested Visits Authorized [id number] Closed Auto-Generate d Referral 07/29/2022 09/12/2022 1 1 Summary Purpose Family History No Family History Records FoundNo Family History Records FoundNo Family History Records Found Additional Source Comments Source Comments (unrecognize d section and content) In the event this informatio n is protected by the Federal Confidentiality of Alcohol and Drug Abuse Patient Records regulations: The Federal rules restrict any use of the information to criminally investigate or prosecute any alcohol or drug abuse patient.[facility] this information is protected by the Federal Confidentiality of Alcohol and Drug Abuse Patient Records regulations: The Federal rules restrict any use of the information to criminally investigate or prosecute any alcohol or drug abuse patient.[facility] event this information is protected by the Federal Confidentiality of Alcohol and Drug Abuse Patient Records regulations: The Federal rules restrict any use of the information to criminally investigate or prosecute any alcohol or drug abuse patient.[facility] the event this information is protected by the Federal Confidentiality of Alcohol and Drug Abuse Patient Records regulations: The Federal rules restrict any use of the information to criminally investigate or prosecute any alcohol or drug abuse patient.[facility] the event this information is protected by the Federal Confidentiality of Alcohol and Drug Abuse Patient Records regulations: The Federal rules restrict any use of the information to criminally investigate or prosecute any alcohol or drug abuse patient.[facility] the event this information is protected by the Federal Confidentiality of Alcohol and Drug Abuse Patient Records regulations: The Federal rules restrict any use of the information to criminally investigate or prosecute any alcohol or drug abuse patient.[facility] the event this information is protected by the Federal Confidentiality of Alcohol and Drug Abuse Patient Records regulations: The Federal rules restrict any use of the information to criminally investigate or prosecute any alcohol or drug abuse patient.[facility] the event this information is protected by the Federal Confidentiality of Alcohol and Drug Abuse Patient Records regulations: The Federal rules restrict any use of the information to criminally investigate or prosecute any alcohol or drug abuse patient.[facility] the event this information is protected by the Federal Confidentiality of Alcohol and Drug Abuse Patient Records regulations: The Federal rules restrict any use of the information to criminally investigate or prosecute any alcohol or drug abuse patient.[facility] the event this information is protected by the Federal Confidentiality of Alcohol and Drug Abuse Patient Records regulations: The Federal rules restrict any use of the information to criminally investigate or prosecute any alcohol or drug abuse patient.[facility] the event this information is protected by the Federal Confidentiality of Alcohol and Drug Abuse Patient Records regulations: The Federal rules restrict any use of the information to criminally investigate or prosecute any alcohol or drug abuse patient.[facility] the event this information is protected by the Federal Confidentiality of Alcohol and Drug Abuse Patient Records regulations: The Federal rules restrict any use of the information to criminally investigate or prosecute any alcohol or drug abuse patient.[facility] the event this information is protected by the Federal Confidentiality of Alcohol and Drug Abuse Patient Records regulations: The Federal rules restrict any use of the information to criminally investigate or prosecute any alcohol or drug abuse patient.[facility] the event this information is protected by the Federal Confidentiality of Alcohol and Drug Abuse Patient Records regulations: The Federal rules restrict any use of the information to criminally investigate or prosecute any alcohol or drug abuse patient.[facility] the event this information is protected by the Federal Confidentiality of Alcohol and Drug Abuse Patient Records regulations: The Federal rules restrict any use of the information to criminally investigate or prosecute any alcohol or drug abuse patient.[facility] the event this information is protected by the Federal Confidentiality of Alcohol and Drug Abuse Patient Records regulations: The Federal rules restrict any use of the information to criminally investigate or prosecute any alcohol or drug abuse patient.[facility] the event this information is protected by the Federal Confidentiality of Alcohol and Drug Abuse Patient Records regulations: The Federal rules restrict any use of the information to criminally investigate or prosecute any alcohol or drug abuse patient.[facility] the event this information is protected by the Federal Confidentiality of Alcohol and Drug Abuse Patient Records regulations: The Federal rules restrict any use of the information to criminally investigate or prosecute any alcohol or drug abuse patient.[facility] the event this information is protected by the Federal Confidentiality of Alcohol and Drug Abuse Patient Records regulations: The Federal rules restrict any use of the information to criminally investigate or prosecute any alcohol or drug abuse patient.[facility] the event this information is protected by the Federal Confidentiality of Alcohol and Drug Abuse Patient Records regulations: The Federal rules restrict any use of the information to criminally investigate or prosecute any alcohol or drug abuse patient.[facility] the event this information is protected by the Federal Confidentiality of Alcohol and Drug Abuse Patient Records regulations: The Federal rules restrict any use of the information to criminally investigate or prosecute any alcohol or drug abuse patient.[facility] the event this information is protected by the Federal Confidentiality of Alcohol and Drug Abuse Patient Records regulations: The Federal rules restrict any use of the information to criminally investigate or prosecute any alcohol or drug abuse patient.[facility] the event this information is protected by the Federal Confidentiality of Alcohol and Drug Abuse Patient Records regulations: The Federal rules restrict any use of the information to criminally investigate or prosecute any alcohol or drug abuse patient.[facility] the event this information is protected by the Federal Confidentiality of Alcohol and Drug Abuse Patient Records regulations: The Federal rules restrict any use of the information to criminally investigate or prosecute any alcohol or drug abuse patient.[facility] the event this information is protected by the Federal Confidentiality of Alcohol and Drug Abuse Patient Records regulations: The Federal rules restrict any use of the information to criminally investigate or prosecute any alcohol or drug abuse patient.[facility] SystemIn the event this information is protected by the Federal Confidentiality of Alcohol and Drug Abuse Patient Records regulations: The Federal rules restrict any use of the information to criminally investigate or prosecute any alcohol or drug abuse patient.[facility] SystemIn the event this information is protected by the Federal Confidentiality of Alcohol and Drug Abuse Patient Records regulations: The Federal rules restrict any use of the information to criminally investigate or prosecute any alcohol or drug abuse patient.[facility] SystemIn the event this information is protected by the Federal Confidentiality of Alcohol and Drug Abuse Patient Records regulations: The Federal rules restrict any use of the information to criminally investigate or prosecute any alcohol or drug abuse patient.[facility] SystemIn the event this information is protected by the Federal Confidentiality of Alcohol and Drug Abuse Patient Records regulations: The Federal rules restrict any use of the information to criminally investigate or prosecute any alcohol or drug abuse patient.[facility] SystemIn the event this information is protected by the Federal Confidentiality of Alcohol and Drug Abuse Patient Records regulations: The Federal rules restrict any use of the information to criminally investigate or prosecute any alcohol or drug abuse patient.[facility] SystemIn the event this information is protected by the Federal Confidentiality of Alcohol and Drug Abuse Patient Records regulations: The Federal rules restrict any use of the information to criminally investigate or prosecute any alcohol or drug abuse patient.[facility] SystemIn the event this information is protected by the Federal Confidentiality of Alcohol and Drug Abuse Patient Records regulations: The Federal rules restrict any use of the information to criminally investigate or prosecute any alcohol or drug abuse patient.[facility] SystemIn the event this information is protected by the Federal Confidentiality of Alcohol and Drug Abuse Patient Records regulations: The Federal rules restrict any use of the information to criminally investigate or prosecute any alcohol or drug abuse patient.[facility] SystemIn the event this information is protected by the Federal Confidentiality of Alcohol and Drug Abuse Patient Records regulations: The Federal rules restrict any use of the information to criminally investigate or prosecute any alcohol or drug abuse patient.[facility] SystemIn the event this information is protected by the Federal Confidentiality of Alcohol and Drug Abuse Patient Records regulations: The Federal rules restrict any use of the information to criminally investigate or prosecute any alcohol or drug abuse patient.[facility] SystemIn the event this information is protected by the Federal Confidentiality of Alcohol and Drug Abuse Patient Records regulations: The Federal rules restrict any use of the information to criminally investigate or prosecute any alcohol or drug abuse patient.[facility] SystemIn the event this information is protected by the Federal Confidentiality of Alcohol and Drug Abuse Patient Records regulations: The Federal rules restrict any use of the information to criminally investigate or prosecute any alcohol or drug abuse patient.[facility] SystemIn the event this information is protected by the Federal Confidentiality of Alcohol and Drug Abuse Patient Records regulations: The Federal rules restrict any use of the information to criminally investigate or prosecute any alcohol or drug abuse patient.[facility] SystemIn the event this information is protected by the Federal Confidentiality of Alcohol and Drug Abuse Patient Records regulations: The Federal rules restrict any use of the information to criminally investigate or prosecute any alcohol or drug abuse patient.[facility] SystemIn the event this information is protected by the Federal Confidentiality of Alcohol and Drug Abuse Patient Records regulations: The Federal rules restrict any use of the information to criminally investigate or prosecute any alcohol or drug abuse patient.[facility] SystemIn the event this information is protected by the Federal Confidentiality of Alcohol and Drug Abuse Patient Records regulations: The Federal rules restrict any use of the information to criminally investigate or prosecute any alcohol or drug abuse patient.[facility] SystemIn the event this information is protected by the Federal Confidentiality of Alcohol and Drug Abuse Patient Records regulations: The Federal rules restrict any use of the information to criminally investigate or prosecute any alcohol or drug abuse patient.[facility] SystemIn the event this information is protected by the Federal Confidentiality of Alcohol and Drug Abuse Patient Records regulations: The Federal rules restrict any use of the information to criminally investigate or prosecute any alcohol or drug abuse patient.[facility] SystemIn the event this information is protected by the Federal Confidentiality of Alcohol and Drug Abuse Patient Records regulations: The Federal rules restrict any use of the information to criminally investigate or prosecute any alcohol or drug abuse patient.[facility] SystemIn the event this information is protected by the Federal Confidentiality of Alcohol and Drug Abuse Patient Records regulations: The Federal rules restrict any use of the information to criminally investigate or prosecute any alcohol or drug abuse patient.[facility] SystemIn the event this information is protected by the Federal Confidentiality of Alcohol and Drug Abuse Patient Records regulations: The Federal rules restrict any use of the information to criminally investigate or prosecute any alcohol or drug abuse patient.[facility] SystemIn the event this information is protected by the Federal Confidentiality of Alcohol and Drug Abuse Patient Records regulations: The Federal rules restrict any use of the information to criminally investigate or prosecute any alcohol or drug abuse patient.[facility] SystemIn the event this information is protected by the Federal Confidentiality of Alcohol and Drug Abuse Patient Records regulations: The Federal rules restrict any use of the information to criminally investigate or prosecute any alcohol or drug abuse patient.[facility] SystemIn the event this information is protected by the Federal Confidentiality of Alcohol and Drug Abuse Patient Records regulations: The Federal rules restrict any use of the information to criminally investigate or prosecute any alcohol or drug abuse patient.[facility] SystemIn the event this information is protected by the Federal Confidentiality of Alcohol and Drug Abuse Patient Records regulations: The Federal rules restrict any use of the information to criminally investigate or prosecute any alcohol or drug abuse patient.[facility] SystemIn the event this information is protected by the Federal Confidentiality of Alcohol and Drug Abuse Patient Records regulations: The Federal rules restrict any use of the information to criminally investigate or prosecute any alcohol or drug abuse patient.[facility] SystemIn the event this information is protected by the Federal Confidentiality of Alcohol and Drug Abuse Patient Records regulations: The Federal rules restrict any use of the information to criminally investigate or prosecute any alcohol or drug abuse patient.[facility] SystemIn the event this information is protected by the Federal Confidentiality of Alcohol and Drug Abuse Patient Records regulations: The Federal rules restrict any use of the information to criminally investigate or prosecute any alcohol or drug abuse patient.[facility] SystemIn the event this information is protected by the Federal Confidentiality of Alcohol and Drug Abuse Patient Records regulations: The Federal rules restrict any use of the information to criminally investigate or prosecute any alcohol or drug abuse patient.[facility] SystemIn the event this information is protected by the Federal Confidentiality of Alcohol and Drug Abuse Patient Records regulations: The Federal rules restrict any use of the information to criminally investigate or prosecute any alcohol or drug abuse patient.[facility] SystemIn the event this information is protected by the Federal Confidentiality of Alcohol and Drug Abuse Patient Records regulations: The Federal rules restrict any use of the information to criminally investigate or prosecute any alcohol or drug abuse patient.[facility] SystemIn the event this information is protected by the Federal Confidentiality of Alcohol and Drug Abuse Patient Records regulations: The Federal rules restrict any use of the information to criminally investigate or prosecute any alcohol or drug abuse patient.[facility] SystemIn the event this information is protected by the Federal Confidentiality of Alcohol and Drug Abuse Patient Records regulations: The Federal rules restrict any use of the information to criminally investigate or prosecute any alcohol or drug abuse patient.[facility] SystemIn the event this information is protected by the Federal Confidentiality of Alcohol and Drug Abuse Patient Records regulations: The Federal rules restrict any use of the information to criminally investigate or prosecute any alcohol or drug abuse patient.[facility] SystemIn the event this information is protected by the Federal Confidentiality of Alcohol and Drug Abuse Patient Records regulations: The Federal rules restrict any use of the information to criminally investigate or prosecute any alcohol or drug abuse patient.[facility] SystemIn the event this information is protected by the Federal Confidentiality of Alcohol and Drug Abuse Patient Records regulations: The Federal rules restrict any use of the information to criminally investigate or prosecute any alcohol or drug abuse patient.[facility] SystemIn the event this information is protected by the Federal Confidentiality of Alcohol and Drug Abuse Patient Records regulations: The Federal rules restrict any use of the information to criminally investigate or prosecute any alcohol or drug abuse patient.[facility] SystemIn the event this information is protected by the Federal Confidentiality of Alcohol and Drug Abuse Patient Records regulations: The Federal rules restrict any use of the information to criminally investigate or prosecute any alcohol or drug abuse patient.[facility] SystemIn the event this information is protected by the Federal Confidentiality of Alcohol and Drug Abuse Patient Records regulations: The Federal rules restrict any use of the information to criminally investigate or prosecute any alcohol or drug abuse patient.[facility] SystemIn the event this information is protected by the Federal Confidentiality of Alcohol and Drug Abuse Patient Records regulations: The Federal rules restrict any use of the information to criminally investigate or prosecute any alcohol or drug abuse patient.[facility] SystemIn the event this information is protected by the Federal Confidentiality of Alcohol and Drug Abuse Patient Records regulations: The Federal rules restrict any use of the information to criminally investigate or prosecute any alcohol or drug abuse patient.[facility] SystemIn the event this information is protected by the Federal Confidentiality of Alcohol and Drug Abuse Patient Records regulations: The Federal rules restrict any use of the information to criminally investigate or prosecute any alcohol or drug abuse patient.[facility] SystemIn the event this information is protected by the Federal Confidentiality of Alcohol and Drug Abuse Patient Records regulations: The Federal rules restrict any use of the information to criminally investigate or prosecute any alcohol or drug abuse patient.[facility] SystemIn the event this information is protected by the Federal Confidentiality of Alcohol and Drug Abuse Patient Records regulations: The Federal rules restrict any use of the information to criminally investigate or prosecute any alcohol or drug abuse patient.[facility] SystemIn the event this information is protected by the Federal Confidentiality of Alcohol and Drug Abuse Patient Records regulations: The Federal rules restrict any use of the information to criminally investigate or prosecute any alcohol or drug abuse patient.[facility] SystemIn the event this information is protected by the Federal Confidentiality of Alcohol and Drug Abuse Patient Records regulations: The Federal rules restrict any use of the information to criminally investigate or prosecute any alcohol or drug abuse patient.[facility] SystemIn the event this information is protected by the Federal Confidentiality of Alcohol and Drug Abuse Patient Records regulations: The Federal rules restrict any use of the information to criminally investigate or prosecute any alcohol or drug abuse patient.[facility] SystemIn the event this information is protected by the Federal Confidentiality of Alcohol and Drug Abuse Patient Records regulations: The Federal rules restrict any use of the information to criminally investigate or prosecute any alcohol or drug abuse patient.[facility] SystemIn the event this information is protected by the Federal Confidentiality of Alcohol and Drug Abuse Patient Records regulations: The Federal rules restrict any use of the information to criminally investigate or prosecute any alcohol or drug abuse patient.[facility] SystemIn the event this information is protected by the Federal Confidentiality of Alcohol and Drug Abuse Patient Records regulations: The Federal rules restrict any use of the information to criminally investigate or prosecute any alcohol or drug abuse patient.[facility] SystemIn the event this information is protected by the Federal Confidentiality of Alcohol and Drug Abuse Patient Records regulations: The Federal rules restrict any use of the information to criminally investigate or prosecute any alcohol or drug abuse patient.[facility] SystemIn the event this information is protected by the Federal Confidentiality of Alcohol and Drug Abuse Patient Records regulations: The Federal rules restrict any use of the information to criminally investigate or prosecute any alcohol or drug abuse patient.[facility] SystemIn the event this information is protected by the Federal Confidentiality of Alcohol and Drug Abuse Patient Records regulations: The Federal rules restrict any use of the information to criminally investigate or prosecute any alcohol or drug abuse patient.[facility] SystemIn the event this information is protected by the Federal Confidentiality of Alcohol and Drug Abuse Patient Records regulations: The Federal rules restrict any use of the information to criminally investigate or prosecute any alcohol or drug abuse patient.[facility] SystemIn the event this information is protected by the Federal Confidentiality of Alcohol and Drug Abuse Patient Records regulations: The Federal rules restrict any use of the information to criminally investigate or prosecute any alcohol or drug abuse patient.[facility] SystemIn the event this information is protected by the Federal Confidentiality of Alcohol and Drug Abuse Patient Records regulations: The Federal rules restrict any use of the information to criminally investigate or prosecute any alcohol or drug abuse patient.[facility] SystemIn the event this information is protected by the Federal Confidentiality of Alcohol and Drug Abuse Patient Records regulations: The Federal rules restrict any use of the information to criminally investigate or prosecute any alcohol or drug abuse patient.[facility] SystemIn the event this information is protected by the Federal Confidentiality of Alcohol and Drug Abuse Patient Records regulations: The Federal rules restrict any use of the information to criminally investigate or prosecute any alcohol or drug abuse patient.[facility] SystemIn the event this information is protected by the Federal Confidentiality of Alcohol and Drug Abuse Patient Records regulations: The Federal rules restrict any use of the information to criminally investigate or prosecute any alcohol or drug abuse patient.[facility] SystemIn the event this information is protected by the Federal Confidentiality of Alcohol and Drug Abuse Patient Records regulations: The Federal rules restrict any use of the information to criminally investigate or prosecute any alcohol or drug abuse patient.[facility] SystemIn the event this information is protected by the Federal Confidentiality of Alcohol and Drug Abuse Patient Records regulations: The Federal rules restrict any use of the information to criminally investigate or prosecute any alcohol or drug abuse patient.[facility] SystemIn the event this information is protected by the Federal Confidentiality of Alcohol and Drug Abuse Patient Records regulations: The Federal rules restrict any use of the information to criminally investigate or prosecute any alcohol or drug abuse patient.[facility] SystemIn the event this information is protected by the Federal Confidentiality of Alcohol and Drug Abuse Patient Records regulations: The Federal rules restrict any use of the information to criminally investigate or prosecute any alcohol or drug abuse patient.[facility] SystemIn the event this information is protected by the Federal Confidentiality of Alcohol and Drug Abuse Patient Records regulations: The Federal rules restrict any use of the information to criminally investigate or prosecute any alcohol or drug abuse patient.[facility] SystemIn the event this information is protected by the Federal Confidentiality of Alcohol and Drug Abuse Patient Records regulations: The Federal rules restrict any use of the information to criminally investigate or prosecute any alcohol or drug abuse patient.[facility] Reason for Visit (unrecogniz ed section and content) Specialty Diagnoses / Procedures Referred By Conttalisha t Referred To Contact [facility] Diagnoses Chronic bilateral thoracic back pain Lumbar pain Procedures CONSULT TO PHYSICAL THERAPY PHYSICAL THERAPY EVALUATION HIGH COMPLEX 45 MINS Rosaura Suárez APRN.[employer] [address] [place] [address] [facility] [address] [place] [id number] Referral ID Status Reason Start Date Expiration Date Visits Requested Visits Authorized [id number] Authorized Auto-Generat ed Referral 07/18/2022 07/17/2023 99 99 Reason Onset Date Comments Community Monitoring Outreach 10/21/2021 [place] PD / CKD Outreach Reason Onset Date Comments Community Monitoring Outreach 10/29/2021 [place] PD/ CKD Telephonic CDM Outreach Reason Comments bilateral feet swelling bilateral ankle swelling Reason Comments Acute Visit Bilat feef and ankle swelling Reason Onset Date Comments Community Monitoring Outreach 11/12/2021 [place] PD/ CKD Telephonic CDM Outreach Reason Onset Date Comments Community Monitoring Outreach 11/17/2021 [place] PD / CKD Telephonic Outreach Reason Onset Date Comments Community Monitoring Outreach 11/20/2021 [place] PD/CKD Telephonic Outreach Reason Comments Established Patient Reason Onset Date Comments Community Monitoring Outreach 12/03/2021 [place] PD/CKD Telephonic CDM Outreach Reason Onset Date Comments Community Monitoring Outreach 12/07/2021 [place] PD Telephonic CDM Outreach Reason Comments Appointment Reason Comments Established Patient Reason Comments Radiology CT Specialty Diagnoses / Procedures Referred By Contac t Referred To Contact CT IMAGING Diagnoses Peripheral vascular disease (HCC) Procedures CTA ABD/PEL LOWER EXTREM W IVCON CTA ABDL AORTA&BI ILIOFEM W/CONTRAST&POSTP Angélica Trevino, DO [address] [place] [address] Ct Imaging Referral ID Status Reason Start Date Expiration Date V isits Requested Visits Authorized [id number] Closed Auto-Generate d Referral 11/25/2021 01/09/2022 1 1 Reason Comments Results Reason Onset Date Comments Community Monitoring Outreach 12/22/2021 [place] PD/ CKD Telephonic CDM Outreach Reason Comments Mass Renal Specialty Diagnoses / Procedures Referred By Contac t Referred To Contact Urology Diagnoses Renal mass Procedures CONSULT TO UROLOGY OFFICE/OUTPATIENT NEW HIGH MDM 60-74 MINUTES Angélica Trevino, DO [address] [place] [address] Referral ID Status Reason Start Date Expiration Date V isits Requested Visits Authorized [id number] Closed PCP Requested Referral 12/09/2021 12/09/2022 1 1 Reason Comments Orders Reason Onset Date Comments Community Monitoring Outreach 01/06/2022 [place] PD / CKD Telephonic CDM Outreach Reason Comments Patient Update Reason Comments F/U 6 Month Reason Comments Established Patient 6 month follow up Reason Onset Date Comments Community Monitoring Outreach 02/25/2022 Reason Comments Patient Update lymphedema pumps Reason Onset Date Comments Refill Request 03/27/2022 Reason Onset Date Comments Community Monitoring Outreach 03/29/2022 Reason Comments Spirometry Specialty Diagnoses / Procedures Referred By Contac t Referred To Contact [facility] Diagnoses COPD, mild (HCC) Procedures SPIROMETRY BASELINE ONLY SPMTRY W/VC [facility] [place] W/WO MXML VOL Ana Jin, AALIYAH [address] [place] [address] [facility] [address] [place] [address] Referral ID Status Reason Start Date Expiration Date V isits Requested Visits Authorized [id number] Closed Auto-Generate d Referral 02/04/2022 03/06/2023 1 1 Specialty Diagnoses / Procedures Referred By Contac t Referred To Contact CT IMAGING Diagnoses Other specified disorders of kidney and ureter 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 Procedures CT KIDNEY WO/W IVCON CT ABDOMEN W & W/O CONTRAST Spencer Boone MD [address] [place] [address] [address] Imaging Referral ID Status Reason Start Date Expiration Date V isits Requested Visits Authorized [id number] Closed Auto-Generate d Referral 01/04/2022 02/03/2023 1 1 Reason Comments New Patient COPD Reason Comments Mass Renal Reason Onset Date Comments Community Monitoring Outreach 04/30/2022 Reason Onset Date Comments Community Monitoring Outreach 05/26/2022 Reason Comments Cough with wheezing for ab out 2 days Reason Onset Date Comments Community Monitoring Outreach 06/28/2022 Reason Onset Date Comments Refill Request 07/24/2022 Reason Onset Date Comments Immunizations 07/29/2022 Flu vaccination Reason Onset Date Comments Refill Request 08/01/2022 Reason Onset Date Comments Community Monitoring Outreach 08/04/2022 Reason Comments Results Chest CT Reason Comments Patient Update Appointment Reason Comments Shortness of Breath Reason Onset Date Comments Refill Request 09/05/2022 Reason Comments F/U 6 months Reason Onset Date Comments Refill Request 09/27/2022 Reason Comments Patient udpate Reason Comments Patient Update Patient Question Reason Onset Date Comments Refill Request 10/17/2022 Reason Onset Date Comments Community Monitoring Outreach 10/19/2022 Reason Onset Date Comments Community Monitoring Outreach 10/29/2022 Reason Comments Cough Chest congestion x3 days Reason Onset Date Comments Community Monitoring Outreach 11/18/2022 Reason Onset Date Comments Future Appointment 12/15/2022 Reason Onset Date Comments Refill Request 12/22/2022 Reason Onset Date Comments Community Monitoring Outreach 12/28/2022 Reason Comments increased diverticulitis pain Reason Comments Results Reason Comments Referral Request Reason Onset Date Comments Community Monitoring Outreach 03/09/2023 Reason Onset Date Comments F/U 6 months Immunizations 03/23/2023 Flu vaccination Reason Comments PT Eval Reason Comments Patient Update ER F/U Back Pain Reason Onset Date Comments Community Monitoring Outreach 04/19/2023 Reason Comments 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 Reason Onset Date Comments Community Monitoring Outreach 05/17/2023 Specialty Diagnoses / Procedures Referred By Contac t Referred To Contact CT IMAGING Diagnoses Interstitial pulmonary disease (HCC) Abnormal chest x-ray Procedures CT CHEST WO IVCON DIAGNOSTIC COMPUTED TOMOGRAPHY THORAX W/O Dora Bran MD [address] [place] [address] [place] [address] Referral ID Status Reason Start Date Expiration Date V isits Requested Visits Authorized [id number] Closed Auto-Generate d Referral 04/27/2022 06/20/2022 1 1 Specialty Diagnoses / Procedures Referred By Contac t Referred To Contact CT IMAGING Diagnoses Opacity noted on imaging study Former cigarette smoker Atelectasis Procedures CT CHEST WO IVCON DIAGNOSTIC COMPUTED TOMOGRAPHY THORAX W/O Dora Bran MD [address] [place] [address] [place] [address] Referral ID Status Reason Start Date Expiration Date V isits Requested Visits Authorized [id number] Closed Auto-Generate d Referral 07/29/2022 09/12/2022 1 1 Reason Comments Recheck blood pressure Reason Onset Date Comments Community Monitoring Outreach 06/28/2023 Reason Comments Hospital F/U [facility] admitted 023 for COPD flare up Low Back Pain Reason Comments Shortness of Breath Care Teams (unrecognized sec tion and content) Frame Straightener Relationship Specialty Start Date End Date Mady Dunn MD [address] [place], [place] [id number] PCP - General Internal Medicine 12/21/16 Kolton Jaffe, bioinformatics computer scientistLaboratory Tech Internal Medicine 11/06/20 Angélica Trevino, DO [address] [place] [address] Peripheral Vascular 01/05/21 Rolly Smith [address] [place] [address] Cardiology 01/05/21 Erin Robledo MD [address] [place] [address] [place] [address] Vascular Surgery 01/26/21 Frame Straightener Relationship Specialty Start Date End Date Mady Dunn MD [address] [place] [address] PCP - General Internal Medicine 12/21/16 Kolton Jaffe RN Laboratory Tech Internal Medicine 11/06/20 Angélica Trevino, DO [address] [place] [address] Peripheral Vascular 01/05/21 Rolly Smith [address] [place] [address] Cardiology 01/05/21 Erin Robledo MD [address] [place] [address] [place] [address] Vascular Surgery 01/26/21 Frame Straightener Relationship Specialty Start Date End Date Mady Dunn MD [address] [place] [address] PCP - General Internal Medicine 12/21/16 Kolton Jaffe bioinformatics computer scientistLaboratory Tech Internal Medicine 11/06/20 Angélica Trevino, DO [address] [place] [address] Peripheral Vascular 01/05/21 Rolly Smith [address] [place] [address] Cardiology 01/05/21 Erin Robledo MD [address] [place] [address] [place] [address] Vascular Surgery 01/26/21 Frame Straightener Relationship Specialty Start Date End Date Mady Dunn MD [address] [place] [address] PCP - General Internal Medicine 12/21/16 Kolton Jaffe, bioinformatics computer scientistLaboratory Tech Internal Medicine 11/06/20 Angélica Trevino, DO [address] [place] [facility] [place] [address] Peripheral Vascular 01/05/21 Rolly Smith [address] [place] [address] Cardiology 01/05/21 Erin Robledo MD [address] [place] [address] [place] [address] Vascular Surgery 01/26/21 Frame Straightener Relationship Specialty Start Date End Date Mady Dunn MD [address] [place] [address] PCP - General Internal Medicine 12/21/16 Kolton Jaffe, bioinformatics computer scientistLaboratory Tech Internal Medicine 11/06/20 Angélica Trevino, DO [address] [place] [facility] [place] [address] Peripheral Vascular 01/05/21 Rolly Smith [address] [place] [address] Cardiology 01/05/21 Erin Robledo MD [address] [place] [address] [place] [address] Vascular Surgery 01/26/21 Frame Straightener Relationship Specialty Start Date End Date Mady Dunn MD [address] [place] [address] PCP - General Internal Medicine 12/21/16 Kolton Jaffe, bioinformatics computer scientistLaboratory Tech Internal Medicine 11/06/20 Angélica Trevino, DO [address] [place] [facility] [place] [address] Peripheral Vascular 01/05/21 Rolly Smith [address] [place] [address] Cardiology 01/05/21 Erin Robledo MD [address] [place] [address] [place] [address] Vascular Surgery 01/26/21 Frame Straightener Relationship Specialty Start Date End Date Mady Dunn MD [address] [place] [address] PCP - General Internal Medicine 12/21/16 Kolton Jaffe, bioinformatics computer scientistLaboratory Tech Internal Medicine 11/06/20 Angélica Trevino, DO [address] [place] [facility] [place] [address] Peripheral Vascular 01/05/21 Rolly Smith [address] [place] [address] Cardiology 01/05/21 Erin Robledo MD [address] [place] [address] [place] [address] Vascular Surgery 01/26/21 Frame Straightener Relationship Specialty Start Date End Date Mady Dunn MD [address] [place] [address] PCP - General Internal Medicine 12/21/16 Kolton Jaffe, bioinformatics computer scientistLaboratory Tech Internal Medicine 11/06/20 Angélica Trevino, DO [address] [place] [address] Peripheral Vascular 01/05/21 Rolly Smith [address] [place] [address] Cardiology 01/05/21 Erin Robledo MD [address] [place] [address] [place] [address] Vascular Surgery 01/26/21 Frame Straightener Relationship Specialty Start Date End Date Mady Dunn MD [address] [place] [address] PCP - General Internal Medicine 12/21/16 Kolton Jaffe RN Laboratory Tech Internal Medicine 11/06/20 Angélica Trevino, DO [address] [place] [address] Peripheral Vascular 01/05/21 Rolly Smith [address] [place] [address] Cardiology 01/05/21 Erin Robledo MD [address] [place] [address] [place] [address] Vascular Surgery 01/26/21 Frame Straightener Relationship Specialty Start Date End Date Mady Dunn MD [address] [place] [address] PCP - General Internal Medicine 12/21/16 Kolton Jaffe bioinformatics computer scientistLaboratory Tech Internal Medicine 11/06/20 Angélica Trevino, DO [address] [place] [address] Peripheral Vascular 01/05/21 Rolly Smith [address] [place] [address] Cardiology 01/05/21 Erin Robledo MD [address] [place] [address] [place] [address] Vascular Surgery 01/26/21 Frame Straightener Relationship Specialty Start Date End Date Mady Dunn MD [address] [place] [address] PCP - General Internal Medicine 12/21/16 Kolton Jaffe, bioinformatics computer scientistLaboratory Tech Internal Medicine 11/06/20 Angélica Trevino, DO [address] [facility] [place] [address] Peripheral Vascular 01/05/21 Rolly Smith [address] [place] [address] Cardiology 01/05/21 Erin Robledo MD [address] [place] [address] [place] [address] Vascular Surgery 01/26/21 Frame Straightener Relationship Specialty Start Date End Date Mady Dunn MD [address] [place] [address] PCP - General Internal Medicine 12/21/16 Kolton Jaffe, bioinformatics computer scientistLaboratory Tech Internal Medicine 11/06/20 Angélica Trevino, DO [address] [place] [facility] [place] [address] Peripheral Vascular 01/05/21 Rolly Smith [address] [place] [address] Cardiology 01/05/21 Erin Robledo MD [address] [place] [address] [place] [address] Vascular Surgery 01/26/21 Frame Straightener Relationship Specialty Start Date End Date Mady Dunn MD [address] [place] [address] PCP - General Internal Medicine 12/21/16 Kolton Jaffe, bioinformatics computer scientistLaboratory Tech Internal Medicine 11/06/20 Angélica Trevino, DO [address] [place] [facility] [place] [address] Peripheral Vascular 01/05/21 Rolly Smith [address] [place] [address] Cardiology 01/05/21 Erin Robledo MD [address] [place] [address] [place] [address] Vascular Surgery 01/26/21 Frame Straightener Relationship Specialty Start Date End Date Mady Dunn MD [address] [place] [address] PCP - General Internal Medicine 12/21/16 Kolton Jaffe, bioinformatics computer scientistLaboratory Tech Internal Medicine 11/06/20 Angélica Trevino, DO [address] [place] [address] Peripheral Vascular 01/05/21 Rolly Smith [address] [place] [address], [place] [address] Cardiology 01/05/21 Erin Robledo MD [address] [place] [address] [place] [address] Vascular Surgery 01/26/21 Frame Straightener Relationship Specialty Start Date End Date Mady Dunn MD [address] [place] [address] PCP - General Internal Medicine 12/21/16 Kolton Jaffe, bioinformatics computer scientistLaboratory Tech Internal Medicine 11/06/20 Angélica Tervino, DO [address] [place] [address] Peripheral Vascular 01/05/21 Rolly Smith [address] [place] [address] Cardiology 01/05/21 Erin Robledo MD [address] [place] [address] [place] [address] Vascular Surgery 01/26/21 Frame Straightener Relationship Specialty Start Date End Date Mady Dunn MD [address] [place] [address] PCP - General Internal Medicine 12/21/16 Kolton Jaffe RN Laboratory Tech Internal Medicine 11/06/20 Angélica Trevino, DO [address] [place] [address] Peripheral Vascular 01/05/21 Rolly Smith [address] [place] [address] Cardiology 01/05/21 Erin Robledo MD [address] [place] [address] [place] [address] Vascular Surgery 01/26/21 Frame Straightener Relationship Specialty Start Date End Date Mady Dunn MD [address] [place] [address] PCP - General Internal Medicine 12/21/16 Kolton Jaffe bioinformatics computer scientistLaboratory Tech Internal Medicine 11/06/20 Angélica Trevino, DO [address] [place] [address] Peripheral Vascular 01/05/21 Rolly Smith [address] [place] [address] Cardiology 01/05/21 Erin Robledo MD [address] [place] [address] [place] [address] Vascular Surgery 01/26/21 Frame Straightener Relationship Specialty Start Date End Date Mady Dunn MD [address] [place] [address] PCP - General Internal Medicine 12/21/16 Kolton Jaffe, bioinformatics computer scientistLaboratory Tech Internal Medicine 11/06/20 Angélica Trevino, DO [address] [place] [facility] [place] [address] Peripheral Vascular 01/05/21 Rolly Smith [address] [place] [address] Cardiology 01/05/21 Erin Robledo MD [address] [place] [address] [place] [address] Vascular Surgery 01/26/21 Frame Straightener Relationship Specialty Start Date End Date Mady Dunn MD [address] [place] [address] PCP - General Internal Medicine 12/21/16 Alannah Hi, bioinformatics computer scientistLaboratory Tech Internal Medicine 11/06/20 Angélica Trevino, DO [address] [place] [facility] [place] [address] Peripheral Vascular 01/05/21 Rolly Smith Alberto [address] [place] [address] Cardiology 01/05/21 Erin Robledo MD [address] [place] [address] [place] [address] Vascular Surgery 01/26/21 Frame Straightener Relationship Specialty Start Date End Date Mady Dunn MD [address] [place] [address] PCP - General Internal Medicine 12/21/16 Alannah Hi, bioinformatics computer scientistLaboratory Tech Internal Medicine 11/06/20 Angélica Trevino, DO [address] [place] [facility] [place] [address] Peripheral Vascular 01/05/21 Rolly Smith [address] [place] [address], [place] [address] Cardiology 01/05/21 Erin Robledo MD [address] [place] [address] [place] [address] Vascular Surgery 01/26/21 Frame Straightener Relationship Specialty Start Date End Date Mady Dunn MD [address] [place] [address] PCP - General Internal Medicine 12/21/16 Alannah Hi, bioinformatics computer scientistLaboratory Tech Internal Medicine 11/06/20 Angélica Trevino, DO [address] [place] [facility] [place] [address] Peripheral Vascular 01/05/21 Rolly Smith [address] [place] [address], [place] [address] Cardiology 01/05/21 Erin Robledo MD [address] [place] [address] [place] [address] Vascular Surgery 01/26/21 Frame Straightener Relationship Specialty Start Date End Date Mady Dunn MD [address] [place] [address] PCP - General Internal Medicine 12/21/16 Alannah Hi, bioinformatics computer scientistLaboratory Tech Internal Medicine 11/06/20 Angélica Trevino, DO [address] [facility] [place] [address] Peripheral Vascular 01/05/21 Rolly Smith Alberto [address] [place] [address] Cardiology 01/05/21 Erin Robledo MD [address] [place] [address] [place] [address] Vascular Surgery 01/26/21 Frame Straightener Relationship Specialty Start Date End Date Mady Dunn MD [address] [place] [address] PCP - General Internal Medicine 12/21/16 Alannah Hi RN Laboratory Tech Internal Medicine 11/06/20 Angélica Trevino, DO [address] [facility] [place] [address] Peripheral Vascular 01/05/21 Rolly Smith [address] [place] [address] Cardiology 01/05/21 Erin Robledo MD [address] [place] [address] [place] [address] Vascular Surgery 01/26/21 Frame Straightener Relationship Specialty Start Date End Date Mady Dunn MD [address] [place] [address] PCP - General Internal Medicine 12/21/16 Alannah Hi RN Laboratory Tech Internal Medicine 11/06/20 Angélica Trevino, DO [address] [facility] [place] [address] Peripheral Vascular 01/05/21 Rolly Smith [address] [place] [address] Cardiology 01/05/21 Erin Robledo MD [address] [place] [address] [place] [address] Vascular Surgery 01/26/21 Frame Straightener Relationship Specialty Start Date End Date Mady Dunn MD [address] [place] [address] PCP - General Internal Medicine 12/21/16 Alannah Hi, bioinformatics computer scientistLaboratory Tech Internal Medicine 11/06/20 Angélica Trevino, DO [address] [place] [facility] [place] [address] Peripheral Vascular 01/05/21 Rolly Smith [address] [place] [address] Cardiology 01/05/21 Erin Robledo MD [address] [place] [address] [place] [address] Vascular Surgery 01/26/21 Frame Straightener Relationship Specialty Start Date End Date Mady Dunn MD [address] [place] [address] PCP - General Internal Medicine 12/21/16 Alannah Hi, bioinformatics computer scientistLaboratory Tech Internal Medicine 11/06/20 Angélica Trevino, DO [address] [place] [facility] [place] [address] Peripheral Vascular 01/05/21 Rolly Smith Alberto [address] [place] [address] Cardiology 01/05/21 Erin Robledo MD [address] [place] [address] [place] [address] Vascular Surgery 01/26/21 Frame Straightener Relationship Specialty Start Date End Date Mady Dunn MD [address] [place] [address] PCP - General Internal Medicine 12/21/16 Alannah Hi, bioinformatics computer scientistLaboratory Tech Internal Medicine 11/06/20 Angélica Trevino, DO [address] [place] [facility] [place] [address] Peripheral Vascular 01/05/21 Rolly Smith [address] [place] [address] Cardiology 01/05/21 Erin Robledo MD [address] [address] [place] [address] Vascular Surgery 01/26/21 Frame Straightener Relationship Specialty Start Date End Date Mady Dunn MD [address] [place] [address] PCP - General Internal Medicine 12/21/16 Alannah Hi, bioinformatics computer scientistLaboratory Tech Internal Medicine 11/06/20 Angélica Trevino, DO [address] [place] [facility] [place] [address] Peripheral Vascular 01/05/21 Rolly Smith [address] [place] [address] Cardiology 01/05/21 Erin Robledo MD [address] [address] [place] [address] Vascular Surgery 01/26/21 Frame Straightener Relationship Specialty Start Date End Date Mady Dunn MD [address] [place] [address] PCP - General Internal Medicine 12/21/16 Alannah Hi, bioinformatics computer scientistLaboratory Tech Internal Medicine 11/06/20 Angélica Trevino, DO [address] [place] [address] Peripheral Vascular 01/05/21 Vipullorena Rolly Domniguez [address] [place] [address] Cardiology 01/05/21 Erin Robledo MD [address] [place] [address] [place] [address] Vascular Surgery 01/26/21 Frame Straightener Relationship Specialty Start Date End Date Mady Dunn MD [address] [place] [address] PCP - General Internal Medicine 12/21/16 Alannah Hi, bioinformatics computer scientistLaboratory Tech Internal Medicine 11/06/20 Angélica Trevino, DO [address] [place] [address] Peripheral Vascular 01/05/21 Joséluis Rolly Dominguez [address] [place] [address] Cardiology 01/05/21 Erin Robledo MD [address] [place] [address] [place] [address] Vascular Surgery 01/26/21 Frame Straightener Relationship Specialty Start Date End Date Mady Dunn MD [address] [facility] [place] [address] PCP - General Internal Medicine 12/21/16 Alannah Hi bioinformatics computer scientistLaboratory Tech Internal Medicine 11/06/20 Angélica Trevino, DO [address] [place] [address] Peripheral Vascular 01/05/21 Rolly Smith [address] [place] [address] Cardiology 01/05/21 Erin Robledo MD [address] [place] [address] [place] [address] Vascular Surgery 01/26/21 Frame Straightener Relationship Specialty Start Date End Date Mady Dunn MD [address] [place] [address] PCP - General Internal Medicine 12/21/16 Alannah Hi, bioinformatics computer scientistLaboratory Tech Internal Medicine 11/06/20 Angélica Trevino, DO [address] [place] [facility] [place] [address] Peripheral Vascular 01/05/21 Rolly Smith [address] [place] [address] Cardiology 01/05/21 Erin Robledo MD [address] [place] [address] [place] [address] Vascular Surgery 01/26/21 Frame Straightener Relationship Specialty Start Date End Date Mady Dunn MD [address] [place] [address] PCP - General Internal Medicine 12/21/16 Alannah Hi, bioinformatics computer scientistLaboratory Tech Internal Medicine 11/06/20 Angélica Trevino, DO [address] [place] [facility] [place] [address] Peripheral Vascular 01/05/21 Rolly Smith [address] [place] [address] Cardiology 01/05/21 Eirn Robldeo MD [address] [place] [address] [place] [address] Vascular Surgery 01/26/21 Frame Straightener Relationship Specialty Start Date End Date Mady Dunn MD [address] [place] [address] PCP - General Internal Medicine 12/21/16 Alannah Hi, bioinformatics computer scientistLaboratory Tech Internal Medicine 11/06/20 Angélica Trevino, DO [address] [place] [facility] [place] [address] Peripheral Vascular 01/05/21 Rolly Smith [address] [place] [address] Cardiology 01/05/21 Erin Robledo MD [address] [place] [address] [place] [address] Vascular Surgery 01/26/21 Frame Straightener Relationship Specialty Start Date End Date Mady Dunn MD [address] [place] [address] PCP - General Internal Medicine 12/21/16 Alannah Hi, bioinformatics computer scientistLaboratory Tech Internal Medicine 11/06/20 Angélica Trevino, DO [address] [place] [facility] [place] [address] Peripheral Vascular 01/05/21 Rolly Smith [address] [place] [address] Cardiology 01/05/21 Erin Robledo MD [address] [place] [address] [place] [address] Vascular Surgery 01/26/21 Frame Straightener Relationship Specialty Start Date End Date Mady Dunn MD [address] [place] [address] PCP - General Internal Medicine 12/21/16 Alannah Hi, bioinformatics computer scientistLaboratory Tech Internal Medicine 11/06/20 Angélica Trevino, DO [address] [facility] [address] Peripheral Vascular 01/05/21 Rolly Smith [address] [place] [address] Cardiology 01/05/21 Erin Robledo MD [address] [place] [address] [place] [address] Vascular Surgery 01/26/21 Frame Straightener Relationship Specialty Start Date End Date Mady Dunn MD [address] [place] [address] PCP - General Internal Medicine 12/21/16 Alannah Hi RN Laboratory Tech Internal Medicine 11/06/20 Angélica Trevino, DO [address] [place] [facility] [place] [address] Peripheral Vascular 01/05/21 Rolly Smith [address] [place] [address] Cardiology 01/05/21 Erin Robledo MD [address] [place] [address] [place] [address] Vascular Surgery 01/26/21 Frame Straightener Relationship Specialty Start Date End Date Mady Dunn MD [address] [place] [address] PCP - General Internal Medicine 12/21/16 Alannah Hi RN Laboratory Tech Internal Medicine 11/06/20 Angélica Trevino, DO [address] [place] [facility] [place] [address] Peripheral Vascular 01/05/21 Rolly Smith [address] [place] [address] Cardiology 01/05/21 Erin Robledo MD [address] [address] [place] [address] Vascular Surgery 01/26/21 Frame Straightener Relationship Specialty Start Date End Date Mady Dunn MD [address] [place] [address] PCP - General Internal Medicine 12/21/16 Alannah Hi, bioinformatics computer scientistLaboratory Tech Internal Medicine 11/06/20 Angélica Trevino, DO [address] [place] [address] Peripheral Vascular 01/05/21 Rolly Smith [address] [address] Cardiology 01/05/21 Erni Robledo MD [address] [place] [address] [place], [place] [phone] Vascular Surgery 01/26/21 Frame Straightener Relationship Specialty Start Date End Date Mady Dunn MD [address] [place] [address] PCP - General Internal Medicine 12/21/16 Alannah Hi, bioinformatics computer scientistLaboratory Tech Internal Medicine 11/06/20 Angélica Trevino, DO [address] [place] [address] Peripheral Vascular 01/05/21 Rolly Smith [address] [place] [address] Cardiology 01/05/21 Erin Robledo MD [address] [place] [address] [place] [address] Vascular Surgery 01/26/21 Frame Straightener Relationship Specialty Start Date End Date Mady Dunn MD [address] [place] [address] PCP - General Internal Medicine 12/21/16 Alannah Hi, bioinformatics computer scientistLaboratory Tech Internal Medicine 11/06/20 Angélica Trevino, DO [address] [place] [address] Peripheral Vascular 01/05/21 Rolly Smith [address] [place] [address] Cardiology 01/05/21 Erin Robledo MD [address] [place] [address] [place] [address] Vascular Surgery 01/26/21 Frame Straightener Relationship Specialty Start Date End Date Mady Dunn MD [address] [place] [address] PCP - General Internal Medicine 12/21/16 Alannah Hi, bioinformatics computer scientistLaboratory Tech Internal Medicine 11/06/20 Angélica Trevino, DO [address] [place], [place] [address] [phone] Peripheral Vascular 01/05/21 Rolly Smith [address] [place] [address] Cardiology 01/05/21 Erin Robledo MD [address] [place] [address] [place] [address] Vascular Surgery 01/26/21 Frame Straightener Relationship Specialty Start Date End Date Mady Dunn MD [address] [place] [address] PCP - General Internal Medicine 12/21/16 Alannah Hi, bioinformatics computer scientistLaboratory Tech Internal Medicine 11/06/20 Angélica Trevino, DO [address] [place] [address] Peripheral Vascular 01/05/21 Rolly Smith [address] [place] [address] Cardiology 01/05/21 Erin Robledo MD [address] [place] [address] [place] [address] Vascular Surgery 01/26/21 Frame Straightener Relationship Specialty Start Date End Date Mady Dunn MD [address] [place] [address] PCP - General Internal Medicine 12/21/16 Alannah Hi, bioinformatics computer scientistLaboratory Tech Internal Medicine 11/06/20 Angélica Trevino, DO [address] [place] [facility] [place] [address] Peripheral Vascular 01/05/21 Rolly Smith [address] [place] [address] Cardiology 01/05/21 Erin Robledo MD [address] [address] [place] [address] Vascular Surgery 01/26/21 Frame Straightener Relationship Specialty Start Date End Date Mady Dunn MD [address] [place] [address] PCP - General Internal Medicine 12/21/16 Alannah Hi, bioinformatics computer scientistLaboratory Tech Internal Medicine 11/06/20 Angélica Trevino, DO [address] [place] [address] Peripheral Vascular 01/05/21 Rolly Smith [address] [place] [address] Cardiology 01/05/21 Erin Robledo MD [address] [place] [address] Vascular Surgery 01/26/21 Frame Straightener Relationship Specialty Start Date End Date Mady Dunn MD [address] [place] [address] PCP - General Internal Medicine 12/21/16 Alannah Hi, bioinformatics computer scientistLaboratory Tech Internal Medicine 11/06/20 Angélica Trevino, DO [address] [place] [facility] [place] [address] Peripheral Vascular 01/05/21 Rolly Smith [address] [place] [address] Cardiology 01/05/21 Erin Robledo MD [address] [place] [address] Vascular Surgery 01/26/21 Frame Straightener Relationship Specialty Start Date End Date Mady Dunn MD [address] [place] [address] PCP - General Internal Medicine 12/21/16 Alannah Hi, bioinformatics computer scientistLaboratory Tech Internal Medicine 11/06/20 Angélica Trevino, DO [address] [place] [address] Peripheral Vascular 01/05/21 Rolly Smith [address] [address] Cardiology 01/05/21 Erin Robledo MD [address] [place] [address] Vascular Surgery 01/26/21 Frame Straightener Relationship Specialty Start Date End Date Mady Dunn MD [address] [place] [address] PCP - General Internal Medicine 12/21/16 Alannah Hi, bioinformatics computer scientistLaboratory Tech Internal Medicine 11/06/20 Angélica Trevino, DO [address] [place] [facility] [place] [address] Peripheral Vascular 01/05/21 Rolly Smith [address] [place] [address] Cardiology 01/05/21 Erin Robledo MD [address] [place] [address] Vascular Surgery 01/26/21 Frame Straightener Relationship Specialty Start Date End Date Mady Dunn MD [address] [place] [address] PCP - General Internal Medicine 12/21/16 Alannah Hi, bioinformatics computer scientistLaboratory Tech Internal Medicine 11/06/20 Angélica Trevino, DO [address] [place] [address] Peripheral Vascular 01/05/21 Rolly Smith [address] [address] Cardiology 01/05/21 Erin Robledo MD [address] [place] [address] Vascular Surgery 01/26/21 Frame Straightener Relationship Specialty Start Date End Date Mady Dunn MD [address] [place] [address] PCP - General Internal Medicine 12/21/16 Alannah Hi, bioinformatics computer scientistLaboratory Tech Internal Medicine 11/06/20 Angélica Trevino, DO [address] [place] [address] Peripheral Vascular 01/05/21 Rolly Smith [address] [address] Cardiology 01/05/21 Erin Robledo MD [address] [place] [address] Vascular Surgery 01/26/21 Frame Straightener Relationship Specialty Start Date End Date Mady Dunn MD [address] [place] [address] PCP - General Internal Medicine 12/21/16 Alannah Hi, bioinformatics computer scientistLaboratory Tech Internal Medicine 11/06/20 Angélica Trevino, [address] [place] [address] Peripheral Vascular 01/05/21 Rolly Smith [address] [place] [address] Cardiology 01/05/21 Erin Robledo MD [address] [place] [address] Vascular Surgery 01/26/21 Frame Straightener Relationship Specialty Start Date End Date Mady Dunn MD [address] [place] [address] PCP - General Internal Medicine 12/21/16 Alannah Hi, bioinformatics computer scientistLaboratory Tech Internal Medicine 11/06/20 Angélica Trevino, [address] [place] [address] Peripheral Vascular 01/05/21 Rolly Smith MD [address] [place] [address] Cardiology 01/05/21 Erin oRbledo MD [address] [place] [address] Vascular Surgery 01/26/21 Frame Straightener Relationship Specialty Start Date End Date Mady Dunn MD [address] [place] [address] PCP - General Internal Medicine 12/21/16 Alannah Hi, bioinformatics computer scientistLaboratory Tech Internal Medicine 11/06/20 Angélica Trevino, [address] [place] [address] Peripheral Vascular 01/05/21 Rolly Smith MD [address] [place] [address] Cardiology 01/05/21 Erin Robledo MD [address] [place] [address] Vascular Surgery 01/26/21 Frame Straightener Relationship Specialty Start Date End Date Mady Dunn MD [address] [place] [address] PCP - General Internal Medicine 12/21/16 Alannah Hi, bioinformatics computer scientistLaboratory Tech Internal Medicine 11/06/20 Angélica Trevino, [address] [place] [address] Peripheral Vascular 01/05/21 Rolly Smith MD [address] [place] [address] Cardiology 01/05/21 Erin Robledo MD [address] [facility] [address] [place], [place] [id number] Vascular Surgery 01/26/21 Frame Straightener Relationship Specialty Start Date End Date Mady Dunn MD [address] [place] [address] PCP - General Internal Medicine 12/21/16 Alannah Hi, bioinformatics computer scientistLaboratory Tech Internal Medicine 11/06/20 Angélica Trevino DO [address] [place] [address] Peripheral Vascular 01/05/21 Rolly Smith MD [address] [place], [place] [id number] Cardiology 01/05/21 Erin Robledo MD [address] [facility] [address] [place], [place] [id number] Vascular Surgery 01/26/21 INFORMATION SOURCE (unrecogn ized section and content) DATE CREATED AUTHOR AUTHOR'S ORGANIZ ATION 12/28/2022 [facility] DATE CREATED AUTHOR AUTHOR'S ORGANIZ ATION 07/23/2023 [facility] FOR RECORDS PERTAINING TO PATIENTS WHO ARE OR HAVE BEEN ENROLLED IN A CHEMICAL DEPENDENCY/SUBSTANCEABUSE PROGRAM, SOME INFORMATION MAY BE OMITTED. This clinical summary was aggregated from multiple sources. Caution should be exercised in using it in the provision of clinical care. This summary normalizes information from multiple sources, and as a consequence, information in this document may materially change the coding, format and clinical context of patient data. In addition, data may be omitted in some cases. CLINICAL DECISIONS SHOULD BE BASED ON THE PRIMARY CLINICAL RECORDS. [facility]. provides no warranty or guarantee of the accuracy or completeness of information in this document.
[2023-07-27 18:55] LABS: Absolute Lymphocyte Count 1.46 X10^3/uL (0.83-4.51); Absolute Neutrophil Count 6.8 X10^3/uL (2.0-7.7); Basophil# 0.04 X10^3/uL; Basophil% 0.4 % (0-1); Eosinophil# 0.04 X10^3/uL; Eosinophils% 0.4 % (0-5); Hematocrit 36.3 % (37-47); Hemoglobin 11.9 g/dL (12.0-15.0); Lymphocyte # 1.46 X10^3/ul (0.83-4.51); Lymphocyte % 15.5 % (19-41); Mean Corp Hgb Conc 32.8 g/dL (32-36); Mean Corpuscular Hgb 32.6 pg (27.0-32.0); Mean Corpuscular Volume 99.5 fL (81-99); Monocyte# 0.95 X10^3/uL; Monocyte% 10.1 % (0-10); NRBC Flagged by Analyzer 0 % (0-5); Neutrophil # 6.76 X10^3/uL (2.7-7.7); Neutrophil % 72.1 % (47-70); Platelet Count 154 K/mm3 (150-450); RBC Distribution Width CV 14.2 % (11.6-14.6); RBC Distribution Width SD 51.5 fl (35.1-43.9); Red Blood Count 3.65 M/mm3 (4.2-5.4); White Blood Count 9.4 K/mm3 (4.4-11.0)
[2023-07-27] MEDS: 0.9% Normal Saline (500mL Bag) 500 ML 999 ML IV (19:04)
[2023-07-27] MEDS: Ipratropium/Albuterol Sulfate 3 ML AMPUL.NEB INHALATION (19:17)
[2023-07-27 19:52] LABS: BNP,B-Type NATRIURETIC PEPTIDE 67.3 pg/mL (0-100)
[2023-07-27 19:58] LABS: Anion Gap 7 (5-15); BUN 93 mg/dL (7-18); BUN/Creat Ratio 44.9 RATIO (10-20); Calcium,Total 8.9 mg/dL (8.5-10.1); Chloride 108 mmol/L (98-107); Creatinine, Serum 2.07 mg/dL (0.55-1.02); EST Glomerular Filtration Rate 24 mL/min (>60); Est Glom Filt Rate - Afr Amer 29 mL/min (>60); Glucose 109 mg/dL (74-106); Lactic Acid 0.8 mmol/L (0.4-1.9); Sodium Level 144 mmol/L (136-145); Troponin-I HS 17 pg/mL (3.0-54.0)
--- NOTE | 2023-07-27 20:50 | RAD_ITS ---
INDICATION: SOB EXAMINATION/TECHNIQUE: X-RAY - XR Chest 1 View COMPARISON: 06/19/2023 and 02/03/2021 chest radiograph. 02/03/[address] Findings: Single frontal view of the chest. LUNG PARENCHYMA: No significant acute focal airspace disease or mass lesion. Again noted thin linear bibasilar atelectasis versus scarring. PLEURA: No pleural effusion. No pneumothorax. HEART/GREAT VESSELS: Cardiomediastinal silhouette is unremarkable. BONES: Osseous structures are unremarkable for age. RAD/Chest 1 View (Portable) IMPRESSION: Stable chest without significant acute focal airspace disease. Again noted thin linear bibasilar atelectasis versus scarring. Electronically Signed: Stuart Garcia MD at 22:27 EST ,
== END 2023-07-27 23:02 | disposition home or self-care (01) ==
PROVIDERS: Emergency Provider Emergency Medicine; PCP Internal Medicine; Visit Provider Emergency Medicine
DX: J44.1 Chronic obstructive pulmonary disease with (acute) exacerbation (principal); I73.9 Peripheral vascular disease, unspecified; E78.5 Hyperlipidemia, unspecified; Z11.52 Encounter for screening for COVID-19; I95.9 Hypotension, unspecified; I10 Essential (primary) hypertension; D64.9 Anemia, unspecified; Z79.02 Long term (current) use of antithrombotics/antiplatelets; Z79.899 Other long term (current) drug therapy; Z87.891 Personal history of nicotine dependence; Z86.73 Personal history of transient ischemic attack (TIA), and cerebral infarction without residual deficits
CPT/HCPCS: 71045; 80048; 83605; 83880; 84484; 85025; 87631; 93005; 94640; 96360; 96361; 99285; J7040

== ENCOUNTER → 2023-08-10 | Outpatient (CLI) | payer MEDICARE, SELFPAY ==
--- NOTE | 2023-08-10 12:15 | RAD_ITS ---
STUDY: X-RAY - PELVIS REASON FOR EXAM: Female, 87 years old. Pain. TECHNIQUE: One view of the pelvis was obtained. COMPARISON: None. FINDINGS: Normal bowel gas pattern with air seen to the rectum. Marked vascular calcification. Osteopenia. Normal bilateral iliac wings, sacroiliac joints and visualized sacrum. Normal visualized bilateral superior and inferior pubic rami. Normal pubic symphysis. Normal ischial tuberosities. Mild arthrosis of both hips. RAD/Pelvis 1 or 2 Views IMPRESSION: Osteopenia with mild arthrosis of both hips. No other abnormality. Electronically Signed: Juan Carlos Rm MD at 14:35 EST ,
--- NOTE | 2023-08-10 12:15 | RAD_ITS ---
STUDY: X-RAY - LUMBAR SPINE REASON FOR EXAM: Female, 87 years old. Back pain. TECHNIQUE: 2 view(s) of the lumbar spine were obtained. COMPARISON: None FINDINGS: Osteopenia. Normal lordosis. Mild rotatory dextroscoliosis, unchanged. 7 mm of anterolisthesis of L3 on L2, slightly accentuated since the prior study. Stable moderate lower thoracic and lumbosacral facet sclerosis. Anterior wedge compression deformity of L1, unchanged from prior study. Diffuse mild intervertebral disc space narrowing with osteophytes most marked at L2-3, L3-4 and to the greatest degree at L4-5, unchanged. Stable marked vascular calcification. RAD/Lumbar Spine 2 or 3 Views IMPRESSION: Osteopenia with mild lower thoracic and lumbosacral spondylosis and anterior wedge compression deformity of L1. Slight accentuation of spondylosis. No new acute finding. Electronically Signed: Juan Carlos Rm MD at 14:39 EST ,
== END | disposition home or self-care (01) ==
PROVIDERS: PCP Internal Medicine; Referring Provider Anesthesiology; Visit Provider Anesthesiology
DX: M54.17 Radiculopathy, lumbosacral region (principal)
CPT/HCPCS: 72100; 72170

== ENCOUNTER → 2023-08-17 | Outpatient (CLI) | payer MEDICARE, SELFPAY ==
[2023-08-17 14:04] LABS: Anion Gap 4 (5-15); BUN 39 mg/dL (7-18); BUN/Creat Ratio 24.8 RATIO (10-20); Calcium,Total 9.3 mg/dL (8.5-10.1); Chloride 110 mmol/L (98-107); Creatinine, Serum 1.57 mg/dL (0.55-1.02); EST Glomerular Filtration Rate 33 mL/min (>60); Est Glom Filt Rate - Afr Amer 40 mL/min (>60); Glucose 137 mg/dL (74-106); Potassium 3.8 mmol/L (3.5-5.1); Sodium Level 142 mmol/L (136-145)
== END | disposition home or self-care (01) ==
LOC: LAB 13:00
PROVIDERS: PCP Internal Medicine; Referring Provider Physician Assistant Medical; Visit Provider Physician Assistant Medical
DX: N18.9 Chronic kidney disease, unspecified (principal); I95.9 Hypotension, unspecified
CPT/HCPCS: 36415; 80048

== ENCOUNTER 2023-08-18 13:12 | Inpatient (IN) | payer MEDICARE, SELFPAY ==
[2023-08-18] VITALS (11 sets, daily range): BP systolic 109–137; BP diastolic 59–83; PULSE 88–101; RESP 16–20; TEMP 36.1–36.8; O2SAT 85–97; BMI 27.8; BMI 26.6
--- NOTE | 2023-08-18 13:43 | EDS_ITS ---
[facility] <WILMER Ramos - Last Filed: 08/18/23 15:44> History of Present Illness Chief Complaint: Shortness of Breath Narrative Narrative: Patient is an 87-year-old female with history of COPD, history of TIA on Plavix, hyperlipidemia PAD, chronic kidney disease who presents to the emergency department with complaints of worsening shortness of breath over the last several days. Patient has had multiple low oxygen readings at different appointments. Today while she was at pain management, her pulse ox was 85%. Patient states has been much more short of breath and coughing. Patient is no longer use tobacco, she quit several years ago. Patient denies any specific chest pain. Patient that she is short of breath worse with movement. Patient while sitting in the room was 87% and placed on 2 L. [facility] <WILMER Ramos - Last Filed: 08/18/23 15:44> [facility] Medical History Bilateral carotid artery stenosis Claudication Diverticulosis Dyslipidemia Essential hypertension Limb weakness Neck and back pain PAD (peripheral artery disease) Renal cyst RLS (restless legs syndrome) Shoulder pain TIA (transient ischemic attack) Home Medications atorvastatin 40 mg tablet 40 mg PO QHS cholesterol 02/22/16 [History Last Taken 06/18/23] clopidogrel 75 mg tablet 75 mg PO DAILY BLOOD THINNER 02/22/16 [History Last Taken 06/19/23] multivitamin with folic acid 400 mcg tablet 1 tab PO DAILY supplement 02/22/16 [History Last Taken 08/18/23] spironolactone 25 mg tablet 25 mg PO DAILY FLUID RETENTION 02/22/16 [History Last Taken 06/19/23] albuterol sulfate 90 mcg/actuation aerosol inhaler 2 puff inhalation BID PRN shortness of breath or wheezing 03/16/18 [History Last Taken 08/17/23] cholecalciferol (vitamin D3) 25 mcg (1,000 unit) tablet 2,500 unit PO DAILY SUPPLEMENT 10/09/18 [History Last Taken 06/19/23] furosemide 40 mg tablet 40 mg PO DAILY FLUID RETENTION #90 tabs 01/27/22 [Rx Last Taken 08/18/23] albuterol sulfate 2.5 mg/3 mL (0.083 %) solution for nebulization 2.5 mg inhalation Q4H PRN shortness of breath or wheezing 05/28/22 [History Last Taken 08/18/23] ipratropium 0.5 mg-albuterol 3 mg (2.5 mg base)/3 mL nebulization soln 3 ml inhalation Q6H PRN shortness of breath 05/28/22 [History Last Taken 08/18/23] budesonide 0.5 mg/2 mL suspension for nebulization 0.25 mg inhalation TID PRN shortness of breath 12/06/22 [History Last Taken 08/18/23] carvedilol 12.5 mg tablet 12.5 mg PO BID CHOLESTEROL #180 tabs 04/27/23 [Rx Last Taken 06/19/23] losartan 50 mg tablet 50 mg PO DAILY BLOOD PRESSURE #90 tabs 08/01/23 [Rx Last Taken 08/18/23] duloxetine 30 mg capsule,delayed release 30 mg PO BID pain 08/17/23 [History Last Taken 08/18/23] hydrocodone-acetaminophen 5-325mg 5mg-325mg 1 tab PO TID PRN pain 08/17/23 [History Last Taken 08/18/23] pramipexole 1.5 mg tablet 1.5 mg PO QHS restless leg syndrome 08/18/23 [History Last Taken 08/17/23] Allergy/AdvReac Type Severity Reaction Status Date / Time lisinopril Allergy edema Verified 08/18/23 13:12 aspirin AdvReac Upset Verified 08/18/23 13:12 Stomach Family History Mother Heart disease Surgical History History of basal cell carcinoma excision History of carotid angioplasty History of kidney stones History of thyroid surgery History of total hysterectomy Social History household members: none Smoking Status: Former smoker how long ago did patient quit smokin years ago alcohol intake: current alcohol intake frequency: holidays/special occasions only details: rare substance use type: does not use caffeine: Yes Type: coffee Number of servings: 1 ROS <WILMER Ramos - Last Filed: 08/18/23 15:44> ROS ED ROS Narrative Constitutional: Negative for fever, chills, weight loss. Positive for weakness Eyes: Negative for vision loss, vision change, double vision ENT: Negative for any sore throat, ear pain, congestion Cardiovascular: Negative for any chest pain, tightness, palpitations Respiratory: Negative for any sputum production, hemoptysis. Positive for cough, dyspnea, dyspnea on exertion, orthopnea Gastrointestinal: Negative for any abdominal pain, nausea, vomiting, diarrhea, constipation, blood in stool, blood in vomit : Negative for any urinary frequency, dysuria, retention, blood in urine Muscle skeletal: Negative for any myalgias, arthralgias, neck pain, back pain Neurological: Negative for any headache, syncope, paresthesias, dizziness Skin: Negative for any rashes, lumps, itching, abrasions, lacerations Psychiatric: Negative for any depression, anxiety, stress, suicidal ideation, homicidal ideation Hematologic: Negative for any easy bruising, excessive bruising, easy bleeding Allergies: Negative for any eczema, hives, rash EXAM <WILMER Ramos - Last Filed: 08/18/23 15:44> Physical Exam Narrative Exam Narrative: Vital signs reviewed. Patient was 88% while resting in the room, placed on 2 L nasal cannula oxygen. Patient does not normally wear oxygen HEET: Head normocephalic atraumatic, TMs clear bilaterally. Posterior pharynx is clear, moist mucous membranes. Nares clear bilaterally. Neck: Supple with no lymphadenopathy or tenderness. No signs of meningismus. Cardiac: Regular rate and rhythm no murmurs gallops or rubs, equal peripheral pulses bilaterally. Respiratory: patient had crackles to both the left and right upper lobes, worse on the left. Diminished lung sounds in the bases. No wheezing heard on initial examination.. No chest tenderness. Abdomen: Soft, nontender, nondistended. No abdominal bruit or pulsatile masses. No hepatosplenomegaly Extremities: +1 pitting edema no signs of gross trauma or deformity. Active full range of motion of all extremities. Neuro: Cranial nerves II through XII intact, no focal neurological deficits. Skin: Clean dry and intact with no rash, purpura, petechiae, vesicles or pustules. Backs/flank: No CVA tenderness, no midline spinal tenderness, no deformity. Psych: Normal mood and affect. No SI, HI or acute psychosis. Const Vital Signs: 08/18/23 13:12 08/18/23 14:02 08/18/23 14:03 Temperature 97.5 F L Temperature Source Temporal Pulse Rate 99 Respiratory Rate 20 H Respiratory Effort Normal Non-Labored Respiratory Depth Normal Respiratory Pattern Normal Blood Pressure 137/59 H Blood Pressure Mean 85 Pulse Ox 90 93 Oxygen Delivery Method Room Air Nasal Cannula Room Air Oxygen Flow Rate (L/min) 2.5 08/18/23 14:16 Temperature Temperature Source Pulse Rate 101 H Respiratory Rate 16 Respiratory Effort Respiratory Depth Respiratory Pattern Normal Blood Pressure Blood Pressure Mean Pulse Ox Oxygen Delivery Method Oxygen Flow Rate (L/min) <Dr. Matthew Schuster, DO - Last Filed: 08/18/23 15:56> Physical Exam Const Vital Signs: 08/18/23 13:12 08/18/23 14:02 08/18/23 14:03 Temperature 97.5 F L Temperature Source Temporal Pulse Rate 99 Respiratory Rate 20 H Respiratory Effort Normal Non-Labored Respiratory Depth Normal Respiratory Pattern Normal Blood Pressure 137/59 H Blood Pressure Mean 85 Pulse Ox 90 93 Oxygen Delivery Method Room Air Nasal Cannula Room Air Oxygen Flow Rate (L/min) 2.5 08/18/23 14:16 Temperature Temperature Source Pulse Rate 101 H Respiratory Rate 16 Respiratory Effort Respiratory Depth Respiratory Pattern Normal Blood Pressure Blood Pressure Mean Pulse Ox Oxygen Delivery Method Oxygen Flow Rate (L/min) MDM <WILMER Ramos - Last Filed: 08/18/23 15:44> [facility] Lab Data Labs: Laboratory Results - last 24 hr 08/18/23 14:00 WBC 6.6 RBC 3.27 L Hgb 10.2 L Hct 33.2 L MCV 101.5 H MCH 31.2 MCHC 30.7 L RDW Std Deviation 58.0 H RDW Coeff of Ha 15.6 H Plt Count 236 MPV 10.0 Immature Gran % (Auto) 3.200 H Neut % (Auto) 76.5 H Lymph % (Auto) 11.9 L Benzie % (Auto) 6.0 Eos % (Auto) 1.8 Baso % (Auto) 0.6 Absolute Neuts (auto) 5.0 Absolute Lymphs (auto) 0.78 L Nucleated RBC % 0.3 Sodium 145 Potassium 3.5 Chloride 109 H Carbon Dioxide 31.0 Anion Gap 5 BUN 43 H Creatinine 1.56 H Est GFR (MDRD) Af Amer 41 L Est GFR (MDRD) Non-Af 34 L BUN/Creatinine Ratio 27.6 H Glucose 155 H Calcium 9.5 Troponin I High Sens 45 B-Natriuretic Peptide 149.2 H Radiography Diagnostic Testing: Clinical Impression(s) from Imaging Studies Chest X-Ray 08/18/23 15:20 IMPRESSION: Infiltrates in the lingular segment of the left upper lobe as well as the right middle lobe. Radiographic follow-up recommended. Hyperinflation. Electronically Signed: Ramos Jolley MD at 15:32 EST , EKG Normal sinus rhythm: Attestation: I personally reviewed and interpreted this EKG as follows: Interpretation: Sinus Rhythm Comments: Normal sinus rhythm, right bundle branch block, rate of 89 bpm, HI 144 ms, QRS duration 120 ms, no acute ST elevation, no acute infarct noted. Treatment and Re-Evaluation :: Patient appears to be comfortable however on the monitor, patient is 87 to 88% on room air, patient was immediately placed on 2 L. Patient is been having low readings in the last couple days. Patient does complain of worsening cough, she is having difficulty doing daily activities secondary to her shortness of breath. Differential diagnose includes COPD exacerbation, ACS, AR, CHF exacerbation, fluid overload. Patient will receive a full cardiac workup including 2 troponins, CBC, proBNP, chemistries. Two-view chest today will be completed. Patient will be given breathing treatments to see if this does anything to improve the patient's work of breathing. All radiologic examinations were read, reviewed by the emergency department attending. From these reads, a plan of care will be put in place. Patient CBC was unremarkable, patient's chemistry showed elevated BNP at 149.2. Troponin was negative. Patient's creatinine is 1.56, this is baseline and an improvement. Chloride is 109. Patient was positive for COVID-19. Secondary to the patient having a positive COVID-19, hypoxia, patient was started on dexamethasone oral. Patient will need to be admitted to the hospital. I will reach out to the hospitalist. Spoke with hospitalist, they will admit the patient. X-ray shows infiltrates in the lingular segment of the left upper lobe as well as right middle lobe. This could be secondary to the COVID-19 infection patient is doing well on oxygen. Given dexamethasone orally. All questions answered stable for admission. <Dr. Matthew Schuster, DO - Last Filed: 08/18/23 15:56> [facility] Narrative Medical decision making narrative: Patient appears to be comfortable however on the monitor, patient is 87 to 88% on room air, patient was immediately placed on 2 L. Patient is been having low readings in the last couple days. Patient does complain of worsening cough, she is having difficulty doing daily activities secondary to her shortness of br eath. Differential diagnose includes COPD exacerbation, ACS, AR, CHF exacerbation, fluid overload. Patient will receive a full cardiac workup including 2 troponins, CBC, proBNP, chemistries. Two-view chest today will be completed. Patient will be given breathing treatments to see if this does anything to improve the patient's work of breathing. All radiologic examinations were read, reviewed by the emergency department attending. From these reads, a plan of care will be put in place. Patient CBC was unremarkable, patient's chemistry showed elevated BNP at 149.2. Troponin was negative. Patient's creatinine is 1.56, this is baseline and an improvement. Chloride is 109. Patient was positive for COVID-19. Secondary to the patient having a positive COVID-19, hypoxia, patient was started on dexamethasone oral. Patient will need to be admitted to the hospital. I will reach out to the hospitalist. Spoke with hospitalist, they will admit the patient. X-ray shows infiltrates in the lingular segment of the left upper lobe as well as right middle lobe. This could be secondary to the COVID-19 infection patient is doing well on oxygen. Given dexamethasone orally. All questions answered stable for admission. This patient was seen with a PA/ACQUISITIONS ANALYST Individually assessed they patient including history and physical. I have reviewed everything on the chart that is available and agree with the documentation provided by the PA/ACQUISITIONS ANALYST including discussion about the assessment, treatment plan, discussion, and return precautions. Patient presenting shortness of breath cough for the last couple of days. She is hypoxic on arrival desats to 87 to 88%. Patient does not wear home oxygen. Does have history of COPD. Differential as above. EKG on my interpretation shows a sinus rhythm at 89 bpm without sign of ischemic change or ectopy. Chest x-ray on my interpretation shows left and right-sided infiltrates however patient has a positive for COVID-19 and this is likely the cause. No leukocytosis with a white blood cell 6.6. Hemoglobin stable at 10.2. BNP minimally elevated 149. High-sensitivity troponin is 45. Patient was given breathing treatments and dexamethasone. Given she is hypoxic and requiring positive and is COVID-positive should be admitted to the hospital for the treatment. Impression: 1. COPD exacerbation 2. COVID-19 3. Hypoxic respiratory failure Lab Data Labs: Laboratory Results - last 24 hr 08/18/23 14:00 WBC 6.6 RBC 3.27 L Hgb 10.2 L Hct 33.2 L MCV 101.5 H MCH 31.2 MCHC 30.7 L RDW Std Deviation 58.0 H RDW Coeff of Ha 15.6 H Plt Count 236 MPV 10.0 Immature Gran % (Auto) 3.200 H Neut % (Auto) 76.5 H Lymph % (Auto) 11.9 L Benzie % (Auto) 6.0 Eos % (Auto) 1.8 Baso % (Auto) 0.6 Absolute Neuts (auto) 5.0 Absolute Lymphs (auto) 0.78 L Nucleated RBC % 0.3 Sodium 145 Potassium 3.5 Chloride 109 H Carbon Dioxide 31.0 Anion Gap 5 BUN 43 H Creatinine 1.56 H Est GFR (MDRD) Af Amer 41 L Est GFR (MDRD) Non-Af 34 L BUN/Creatinine Ratio 27.6 H Glucose 155 H Calcium 9.5 Troponin I High Sens 45 B-Natriuretic Peptide 149.2 H Radiography Diagnostic Testing: Clinical Impression(s) from Imaging Studies Chest X-Ray 08/18/23 15:20 IMPRESSION: Infiltrates in the lingular segment of the left upper lobe as well as the right middle lobe. Radiographic follow-up recommended. Hyperinflation. Electronically Signed: Ramos Jolley MD at 15:32 EST , Discharge Plan Dx/Rx/DC Orders Clinical Impression: COVID-19, History of COPD, Hypoxia, Pneumonia due to COVID-19 virus Disposition Disposition: Acute Care Hospital [facility]
[2023-08-18] MEDS: Albuterol 2.5 MG/3 ML VIAL.NEB. INHALATION (14:16)
[2023-08-18] MEDS: Ipratropium/Albuterol Sulfate 3 ML AMPUL.NEB INHALATION ×2 (14:16→19:44)
[2023-08-18 14:58] LABS: Absolute Lymphocyte Count 0.78 X10^3/uL (0.83-4.51); Basophil# 0.04 X10^3/uL; Basophil% 0.6 % (0-1); Eosinophil# 0.12 X10^3/uL; Eosinophils% 1.8 % (0-5); Hematocrit 33.2 % (37-47); Hemoglobin 10.2 g/dL (12.0-15.0); Lymphocyte # 0.78 X10^3/ul (0.83-4.51); Lymphocyte % 11.9 % (19-41); Mean Corp Hgb Conc 30.7 g/dL (32-36); Mean Corpuscular Hgb 31.2 pg (27.0-32.0); Mean Corpuscular Volume 101.5 fL (81-99); Monocyte# 0.39 X10^3/uL; NRBC Flagged by Analyzer 0.3 % (0-5); Neutrophil # 5.01 X10^3/uL (2.7-7.7); Neutrophil % 76.5 % (47-70); Platelet Count 236 K/mm3 (150-450); RBC Distribution Width CV 15.6 % (11.6-14.6); Red Blood Count 3.27 M/mm3 (4.2-5.4); White Blood Count 6.6 K/mm3 (4.4-11.0)
[2023-08-18 15:09] LABS: Anion Gap 5 (5-15); BUN 43 mg/dL (7-18); BUN/Creat Ratio 27.6 RATIO (10-20); Calcium,Total 9.5 mg/dL (8.5-10.1); Chloride 109 mmol/L (98-107); Creatinine, Serum 1.56 mg/dL (0.55-1.02); EST Glomerular Filtration Rate 34 mL/min (>60); Est Glom Filt Rate - Afr Amer 41 mL/min (>60); Glucose 155 mg/dL (74-106); Potassium 3.5 mmol/L (3.5-5.1); Sodium Level 145 mmol/L (136-145); Troponin-I HS 45 pg/mL (3.0-54.0)
[2023-08-18 15:16] LABS: BNP,B-Type NATRIURETIC PEPTIDE 149.2 pg/mL (0-100)
--- NOTE | 2023-08-18 15:20 | RAD_ITS ---
STUDY: X-RAY CHEST REASON FOR EXAM: Female, 87 years old. Chest pain TECHNIQUE: Single AP portable view of the chest. COMPARISON: Comparison is made with prior study dated July 27, 2023. FINDINGS: EKG electrodes are seen. Hyperinflation. Infiltrates are seen in the right middle lobe and lingular segment of the left upper lobe. This has progressed as compared to prior study. Follow-up is recommended. There is no demonstrated pleural abnormality. Normal size heart. Normal mediastinum and yamilka. Normal visualized pulmonary arteries. There is atherosclerotic tortuosity of the aortic arch and descending thoracic aorta. Normal visualized thoracic spine. Normal visualized ribs, clavicles, and shoulders. There is no demonstrated abnormality of the visualized soft tissue structures of the upper abdomen. RAD/Chest 1 View (Portable) IMPRESSION: Infiltrates in the lingular segment of the left upper lobe as well as the right middle lobe. Radiographic follow-up recommended. Hyperinflation. Electronically Signed: Ramos Jolley MD at 15:32 EST ,
--- NOTE | 2023-08-18 15:52 | PCM.HP.STD ---
HPI - General General Date of Admission: 08/18/23 Date of Service: 08/18/23 Chief Complaint: Cough, CP, low O2 sat HPI Narrative DICK ARTIS, is a 87-year-old female with history of COPD, history of TIA on Plavix, hyperlipidemia, PAD, chronic kidney disease who presents to the emergency department with complaints of worsening shortness of breath over the last several days. Today she was at pain management and her oxygen saturation was found to be 85%, she does endorse that she has been more short of breath and has been coughing, shortness of breath worse with exertion. While sitting in room patient was 87% was placed on 2 L of O2 with improvement in O2 sats. In the ED she was found to be COVID-positive. Given her hypoxia and shortness of breath hospitalist contacted for admission. Patient seen at bedside with family member present, she reports that over the past 3 days she has specifically had increased shortness of breath and cough and oxygen has been dropping to the 80s. Denies fevers or chills, no swelling, ROS otherwise negative. [facility] Medical History Bilateral carotid artery stenosis Claudication Diverticulosis Dyslipidemia Essential hypertension Limb weakness Neck and back pain PAD (peripheral artery disease) Renal cyst RLS (restless legs syndrome) Shoulder pain TIA (transient ischemic attack) Home Medications atorvastatin 40 mg tablet 40 mg PO QHS cholesterol 02/22/16 [History Last Taken 06/18/23] clopidogrel 75 mg tablet 75 mg PO DAILY BLOOD THINNER 02/22/16 [History Last Taken 06/19/23] multivitamin with folic acid 400 mcg tablet 1 tab PO DAILY supplement 02/22/16 [History Last Taken 08/18/23] spironolactone 25 mg tablet 25 mg PO DAILY FLUID RETENTION 02/22/16 [History Last Taken 06/19/23] albuterol sulfate 90 mcg/actuation aerosol inhaler 2 puff inhalation BID PRN shortness of breath or wheezing 03/16/18 [History Last Taken 08/17/23] cholecalciferol (vitamin D3) 25 mcg (1,000 unit) tablet 2,500 unit PO DAILY SUPPLEMENT 10/09/18 [History Last Taken 06/19/23] furosemide 40 mg tablet 40 mg PO DAILY FLUID RETENTION #90 tabs 01/27/22 [Rx Last Taken 08/18/23] albuterol sulfate 2.5 mg/3 mL (0.083 %) solution for nebulization 2.5 mg inhalation Q4H PRN shortness of breath or wheezing 05/28/22 [History Last Taken 08/18/23] ipratropium 0.5 mg-albuterol 3 mg (2.5 mg base)/3 mL nebulization soln 3 ml inhalation Q6H PRN shortness of breath 05/28/22 [History Last Taken 08/18/23] budesonide 0.5 mg/2 mL suspension for nebulization 0.25 mg inhalation TID PRN shortness of breath 12/06/22 [History Last Taken 08/18/23] carvedilol 12.5 mg tablet 12.5 mg PO BID CHOLESTEROL #180 tabs 04/27/23 [Rx Last Taken 06/19/23] losartan 50 mg tablet 50 mg PO DAILY BLOOD PRESSURE #90 tabs 08/01/23 [Rx Last Taken 08/18/23] duloxetine 30 mg capsule,delayed release 30 mg PO BID pain 08/17/23 [History Last Taken 08/18/23] hydrocodone-acetaminophen 5-325mg 5mg-325mg 1 tab PO TID PRN pain 08/17/23 [History Last Taken 08/18/23] pramipexole 1.5 mg tablet 1.5 mg PO QHS restless leg syndrome 08/18/23 [History Last Taken 08/17/23] Allergy/AdvReac Type Severity Reaction Status Date / Time lisinopril Allergy edema Verified 08/18/23 13:12 aspirin AdvReac Upset Verified 08/18/23 13:12 Stomach Family History Mother Heart disease Surgical History History of basal cell carcinoma excision History of carotid angioplasty History of kidney stones History of thyroid surgery History of total hysterectomy Social History household members: none Smoking Status: Former smoker how long ago did patient quit smokin years ago alcohol intake: current alcohol intake frequency: holidays/special occasions only details: rare substance use type: does not use caffeine: Yes Type: coffee Number of servings: 1 ROS ROS Narrative General: Denies fever/chills HENT: Denies headache, denies stuffy nose, denies sore throat EYES: Denies changes in vision Resp: Increased cough and shortness of breath Cardiac: Denies chest pain GI: Denies abdominal pain, denies changes in bowel, denies nausea/vomiting : Denies changes in urination Extremity: Denies swelling MSK: Denies weakness Neuro: Denies any numbness/tingling Heme: Denies any bleeding or bruising Skin: Denies rashes Psychiatric: No complaints voiced Vital Signs Vital Signs Vital Signs: 08/18/23 13:12 08/18/23 14:02 08/18/23 14:03 Temperature 97.5 F L Temperature Source Temporal Pulse Rate 99 Respiratory Rate 20 H Respiratory Effort Normal Non-Labored Respiratory Depth Normal Respiratory Pattern Normal Blood Pressure 137/59 H Blood Pressure Mean 85 Pulse Ox 90 93 Oxygen Delivery Method Room Air Nasal Cannula Room Air Oxygen Flow Rate (L/min) 2.5 08/18/23 14:16 Temperature Temperature Source Pulse Rate 101 H Respiratory Rate 16 Respiratory Effort Respiratory Depth Respiratory Pattern Normal Blood Pressure Blood Pressure Mean Pulse Ox Oxygen Delivery Method Oxygen Flow Rate (L/min) Physical Exam Narrative General: Alert, oriented, no apparent distress HEENT: Atraumatic, normocephalic Eyes: Anicteric, normal conjunctiva, extraocular movements grossly intact Neck: Supple Respiratory: Slight increased respiratory effort, scattered wheezes Cardiovascular: Regular rate and rhythm GI: Soft, nontender, nondistended Extremities: No edema Musculoskeletal: Moving all extremities Neuro: No overt focal neurological deficits Skin: No rashes appreciated Psych: Cooperative Results Lab / Micro Data 08/18/23 14:00 08/18/23 14:00 Labs: Laboratory Results - last 24 hr 08/18/23 14:00: WBC 6.6, RBC 3.27 L, Hgb 10.2 L, Hct 33.2 L, MCV 101.5 H, MCH 31.2, MCHC 30.7 L, RDW Std Deviation 58.0 H, RDW Coeff of Ha 15.6 H, Plt Count 236, MPV 10.0, Immature Gran % (Auto) 3.200 H, Neut % (Auto) 76.5 H, Lymph % (Auto) 11.9 L, [place] % (Auto) 6.0, Eos % (Auto) 1.8, Baso % (Auto) 0.6, Absolute Neuts (auto) 5.0, Absolute Lymphs (auto) 0.78 L, Nucleated RBC % 0.3, Sodium 145, Potassium 3.5, Chloride 109 H, Carbon Dioxide 31.0, Anion Gap 5, BUN 43 H, Creatinine 1.56 H, Est GFR (MDRD) Af Amer 41 L, Est GFR (MDRD) Non-Af 34 L, BUN/Creatinine Ratio 27.6 H, Glucose 155 H, Calcium 9.5, Troponin I High Sens 45, B-Natriuretic Peptide 149.2 H Micro: Microbiology 08/18/23 14:10 Mucosa - Nose SARS-CoV-2, Influenza & RSV (PCR) - Final SARS-CoV-2 (COVID 19 PCR) Imaging Radiology Impression Chest X-Ray 08/18/23 15:20 IMPRESSION: Infiltrates in the lingular segment of the left upper lobe as well as the right middle lobe. Radiographic follow-up recommended. Hyperinflation. Electronically Signed: Ramos Jolley MD at 15:32 EST Reading Location ID and State: [address] [place] [address] , Service support , Assessment & Plan Assessment/Plan (1) COVID-19: (2) Hypoxia: (3) History of TIA (transient ischemic attack): (4) History of COPD: (5) Chronic kidney disease: QUALIFIERS: Chronic kidney disease stage: stage 3 (moderate) Chronic kidney disease stage 3 subtype: stage 3b (GFR 30-44) Qualified Code(s): N18.32 - Chronic kidney disease, stage 3b (6) Bilateral carotid artery stenosis: (7) Essential hypertension: PLAN: Plan #Hypoxia in setting of acute COVID-19 and chronic COPD -Respiratory panel, COVID/flu/RSV showed patient COVID-positive -Covid precautions -cxr: With infiltrates in the lingular segment of the left upper lobe and right middle lobe -Dexamethasone, remdesivir -Nebs, albuterol as needed -Mucinex -Incentive spirometry #Hx TIA/PAD/bilateral carotid stenosis -Cont plavix -Continue statin # Chronic pain -Follows with pain management -Continue current medications -Continue cymbalta #HTN -MIKAYLA 121/60 -Continue losartan, spirono, carvediolol, lasix # RLS -Continue pramipexole #Chronic macrocytic anemia -10.2, lower than 10 but pt chronically in 10-12 range and no report of blood loss -Check iron panel, b12, folate #CKDIIIb -Appears to be at baseline -Avoid nephrotoxic agents -Daily BMP #DVT ppx: Lovenox subcu Yenny Abdul MD Charges/Coding Visit Charges Inpatient E&M: 34883 Init Hosp L2
[2023-08-18] MEDS: dexAMETHasone 4 MG Tablet 6 MG PO (15:55)
--- NOTE | 2023-08-18 16:31 | NURSING ---
PCU AGUAYO HYPOXIA, COVID 19 PNEUMONIA, HX OF COPD
[2023-08-18] MEDS: Remdesivir 200 MG in 0.9% Normal Saline (250mL Bag) 210 ML 250 MG IV (18:23)
[2023-08-18] MEDS: 0.9% Saline Lock 10 ML Syringe IV (18:23)
[2023-08-18 19:57] LABS: CPK Total, Creatine Kinase 18 U/L (26-192); LDH 267 U/L (84-246)
[2023-08-18 20:00] LABS: Lactic Acid 1.6 mmol/L (0.4-1.9)
[2023-08-18 20:14] LABS: International Normalized Ratio 1.1; Prothrombin Time (Protime)PT. 14.6 SECONDS (11.7-14.9)
[2023-08-18 20:15] LABS: Fibrinogen 651 mg/dl (203-444)
[2023-08-18 20:16] LABS: D-Dimer Quantitative (DVT/PE) < 0.27 FEU/ug/m (0.27-0.49)
[2023-08-18] MEDS: Pramipexole Di-HCl 0.5 MG Tablet 1.5 MG PO (20:54)
[2023-08-18] MEDS: Acetaminophen 325 MG Tablet 650 MG PO (20:54)
[2023-08-18] MEDS: DULoxetine Hcl 30 MG Capsule PO (20:55)
[2023-08-18] MEDS: guaiFENesin 1,200 MG Tablet 1200 MG PO (20:55)
[2023-08-18] MEDS: Carvedilol 12.5 MG Tablet PO (20:56)
[2023-08-18] MEDS: Atorvastatin Calcium 40 MG Tablet PO (20:56)
[2023-08-19] VITALS (9 sets, daily range): BP systolic 113–124; BP diastolic 43–67; PULSE 76–95; RESP 16–24; TEMP 36.2–37.1; O2SAT 87–95
[2023-08-19] MEDS: Ipratropium/Albuterol Sulfate 3 ML AMPUL.NEB INHALATION ×4 (01:12→18:57)
[2023-08-19] MEDS: Benzonatate 100 MG Capsule PO (01:32)
[2023-08-19] MEDS: Senna/Docusate Sodium 1 Tablet 2 TABLET PO ×2 (01:34→12:32)
[2023-08-19] MEDS: Acetaminophen 325 MG Tablet 650 MG PO (03:12)
[2023-08-19 06:34] LABS: Absolute Lymphocyte Count 0.72 X10^3/uL (0.83-4.51); Absolute Neutrophil Count 3.7 X10^3/uL (2.0-7.7); Basophil# 0.01 X10^3/uL; Basophil% 0.2 % (0-1); Hematocrit 29.4 % (37-47); Hemoglobin 9.2 g/dL (12.0-15.0); Lymphocyte # 0.72 X10^3/ul (0.83-4.51); Lymphocyte % 14.9 % (19-41); Mean Corp Hgb Conc 31.3 g/dL (32-36); Mean Corpuscular Hgb 31.1 pg (27.0-32.0); Mean Corpuscular Volume 99.3 fL (81-99); Mean Platelet Vol. 9.9 fl (6.2-12.0); Monocyte# 0.22 X10^3/uL; Monocyte% 4.6 % (0-10); NRBC Flagged by Analyzer 0 % (0-5); Neutrophil # 3.66 X10^3/uL (2.7-7.7); Neutrophil % 75.9 % (47-70); Platelet Count 216 K/mm3 (150-450); RBC Distribution Width CV 15.2 % (11.6-14.6); RBC Distribution Width SD 54.7 fl (35.1-43.9); Red Blood Count 2.96 M/mm3 (4.2-5.4); White Blood Count 4.8 K/mm3 (4.4-11.0)
[2023-08-19 07:43] LABS: Vitamin B12 722 pg/mL (211-911)
[2023-08-19 07:49] LABS: ALB/GLOB Ratio 0.6 RATIO (0.9-2.4); AST(SGOT) 21 U/L (15-37); Alanine Aminotransfer ALT/SGPT 23 U/L (13-56); Albumin, Serum 2.2 g/dL (3.2-5.0); Alkaline Phosphatase 61 U/L (45-117); Anion Gap 4 (5-15); BUN 47 mg/dL (7-18); BUN/Creat Ratio 37.3 RATIO (10-20); Calcium,Total 8.9 mg/dL (8.5-10.1); Chloride 108 mmol/L (98-107); Creatinine, Serum 1.26 mg/dL (0.55-1.02); EST Glomerular Filtration Rate 43 mL/min (>60); Est Glom Filt Rate - Afr Amer 52 mL/min (>60); Estimated Creatinine Clearance 29.12 ml/min; Ferritin 640 ng/mL (8-252); Glucose 173 mg/dL (74-106); Iron 95 ug/dL (50-170); Iron Binding Capacity,Total 180 ug/dL (250-450); Magnesium 1.7 mg/dL (1.6-2.6); PERCENT IRON SATURATION 52.8 % (15.0-55.0); Potassium 3.7 mmol/L (3.5-5.1); Protein, Total 6.2 g/dL (6.4-8.2); Sodium Level 139 mmol/L (136-145); Thyroid Stim Hormone (TSH) 0.23 uIU/mL (0.358-3.74)
--- NOTE | 2023-08-19 08:48 | PN.HOSP_ITS ---
Subjective Subjective Still with shortness of breath. Objective Data Objective Data Vital Signs: Vital Signs Temp Pulse Resp BP Pulse Ox O2 Del Method O2 Flow Rate 37.1 C 89 18 124/67 H 91 Nasal Cannula 3 08/19/23 03:00 08/19/23 07:31 08/19/23 07:31 08/19/23 03:00 08/19/23 07:31 08/19/23 07:31 08/19/23 07:31 Oxygen Flow Rate (L/min) 3 Oxygen Delivery Method Nasal Cannula Weight: 66.1 kg Body Mass Index (BMI) 26.6 Intake & Output: Intake and Output for Last 24 Hours 08/17/23 08/18/23 08/19/23 23:59 23:59 23:59 Intake Total 370 / 570 200 / 200 Balance 370 / 570 200 / 200 Lab / Micro Data 08/19/23 05:50 08/19/23 05:50 Labs: Laboratory Results - last 24 hr 08/18/23 14:00: WBC 6.6, RBC 3.27 L, Hgb 10.2 L, Hct 33.2 L, MCV 101.5 H, MCH 31.2, MCHC 30.7 L, RDW Std Deviation 58.0 H, RDW Coeff of Ha 15.6 H, Plt Count 236, MPV 10.0, Immature Gran % (Auto) 3.200 H, Neut % (Auto) 76.5 H, Lymph % (Auto) 11.9 L, [place] % (Auto) 6.0, Eos % (Auto) 1.8, Baso % (Auto) 0.6, Absolute Neuts (auto) 5.0, Absolute Lymphs (auto) 0.78 L, Nucleated RBC % 0.3, Sodium 145, Potassium 3.5, Chloride 109 H, Carbon Dioxide 31.0, Anion Gap 5, BUN 43 H, Creatinine 1.56 H, Est GFR (MDRD) Af Amer 41 L, Est GFR (MDRD) Non-Af 34 L, BUN/Creatinine Ratio 27.6 H, Glucose 155 H, Calcium 9.5, Troponin I High Sens 45, B-Natriuretic Peptide 149.2 H 08/18/23 19:22: PT 14.6, INR 1.1, Fibrinogen 651 H, D-Dimer Quant (PE/DVT) < 0.27 L, Lactic Acid 1.6, Lactate Dehydrogenase 267 H, Total Creatine Kinase 18 L , C-React Prot Ext Range 85.90 H, Procalcitonin 0.20 H 08/19/23 05:50: WBC 4.8, RBC 2.96 L, Hgb 9.2 L, Hct 29.4 L, MCV 99.3 H, MCH 31.1, MCHC 31.3 L, RDW Std Deviation 54.7 H, RDW Coeff of Ha 15.2 H, Plt Count 216, MPV 9.9, Immature Gran % (Auto) 4.400 H, Neut % (Auto) 75.9 H, Lymph % (Auto) 14.9 L, [place] % (Auto) 4.6, Eos % (Auto) 0.0, Baso % (Auto) 0.2, Absolute Neuts (auto) 3.7, Absolute Lymphs (auto) 0.72 L, Nucleated RBC % 0, Sodium 139, Potassium 3.7, Chloride 108 H, Carbon Dioxide 27.0, Anion Gap 4 L, BUN 47 H, Creatinine 1.26 H, Estim Creat Clear Calc 29.12, Est GFR (MDRD) Af Amer 52 L, Est GFR (MDRD) Non-Af 43 L, BUN/Creatinine Ratio 37.3 H, Glucose 173 H, Calcium 8.9, Magnesium 1.7, Iron 95, TIBC 180 L, Iron Saturation 52.8, Ferritin 640 H, Total Bilirubin 0.40, AST 21, ALT 23, Alkaline Phosphatase 61, Total Protein 6.2 L, Albumin 2.2 L, Globulin 4.0, Albumin/Globulin Ratio 0.6 L, Vitamin B12 722, Folate 32.00, TSH 0.23 L Micro: Microbiology 08/19/23 00:40 Urine, Clean Catch Legionella Antigen - Final 08/19/23 00:40 Urine, Clean Catch Streptococcus pneumoniae Antigen (M - Final 08/18/23 17:31 Mucosa - Nasopharyngeal Respiratory Panel (PCR) - Final 08/18/23 14:10 Mucosa - Nose SARS-CoV-2, Influenza & RSV (PCR) - Final SARS-CoV-2 (COVID 19 PCR) Radiography Diagnostic Testing: Radiology Impression Chest X-Ray 08/18/23 15:20 IMPRESSION: Infiltrates in the lingular segment of the left upper lobe as well as the right middle lobe. Radiographic follow-up recommended. Hyperinflation. Electronically Signed: Ramos Jolley MD at 15:32 EST , Physical Exam Const alert and no apparent distress Resp normal respiratory effort, no retractions, no use of accessory muscles and clear to auscultation bilaterally Cardio regular rate, regular rhythm, S1 normal heart sound and S2 normal heart sound GI normal to inspection, nondistended, normoactive bowel sounds, soft to palpation and non-tender Neuro Sensorium / Orientation: awake and alert Assessment & Plan Assessment/Plan (1) COVID-19: PLAN: Plan Acute COVID 19 * Onset likely the . Quarantine through 08/26. * Dexamethasone, remdesivir Hypoxia * / COVID 19 and COPD. * wean oxygen as able. * check home oxygen evaluation. Chronic conditions: * Hx TIA/PAD/bilateral carotid stenosis-Cont plavix-Continue statin * Chronic pain-Follows with pain management. 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
[2023-08-19] MEDS: Spironolactone 25 MG Tablet PO (09:28)
[2023-08-19] MEDS: Carvedilol 12.5 MG Tablet PO ×2 (09:28→21:07)
[2023-08-19] MEDS: Losartan Potassium 50 MG Tablet PO (09:28)
[2023-08-19] MEDS: dexAMETHasone 10 MG/ML Vial 6 MG IV (09:29)
[2023-08-19] MEDS: DULoxetine Hcl 30 MG Capsule PO ×2 (09:29→21:08)
[2023-08-19] MEDS: guaiFENesin 1,200 MG Tablet 1200 MG PO ×2 (09:29→21:08)
[2023-08-19] MEDS: Furosemide 40 MG Tablet PO (09:29)
[2023-08-19] MEDS: Enoxaparin 30 MG/0.3 ML Syringe SC (09:29)
[2023-08-19] MEDS: Clopidogrel Bisulfate 75 MG Tablet PO (09:30)
[2023-08-19] MEDS: 0.9% Saline Lock 10 ML Syringe IV ×2 (09:30→10:34)
[2023-08-19] MEDS: Remdesivir 100 MG in 0.9% Normal Saline (250mL Bag) 230 ML 250 MG IV (10:34)
--- NOTE | 2023-08-19 14:30 | CASEMGMT ---
DEVANG KELLER Face to Face with patient for initial transition planning/care coordination assessment. RN CM introduced self and role at [facility]. Patient lying in bed, alert and oriented. Patient willing to participate in assessment and is able to answer all questions appropriately. Care providers, pharmacy, and demographics verified. Patient wishes to discharge home, denies need for home health at this time. Patient states she has no further needs or concerns at this time. CM to follow for discharge planning needs that may arise. PCP: [place] Specialists: Donna, junior oracle dba; Danish, pain management; Audrey Delvalle, asphalt blender; Preferred Pharmacy: [facility] Retail Insurance: [employer] [facility] Prescription Benefit: yes Living Will/HPOA: yes, daughter Dora Goodman LNOK: daughter Living Arrangements: Patient lives alone in a 2 story home with bed and bath on first floor, 1 steps and railing to enter the home. Patient states he is independent Transportation: daughter, son DME/HHC: Patient has shower chair, grab bars, nebulizer, pulse ox, glucometer. Patient is active with [employer]. Will monitor for home oxygen, prefers [employer]. Disposition Plan: Patient to discharge home with family support and follow-up plans in place. Will monitor for home oxygen. Cynthia BISHOP, RN, CM
[2023-08-19] MEDS: Pramipexole Di-HCl 0.5 MG Tablet 1.5 MG PO (21:07)
[2023-08-19] MEDS: Atorvastatin Calcium 40 MG Tablet PO (21:07)
[2023-08-20] MEDS: Senna/Docusate Sodium 1 Tablet 2 TABLET PO (03:50)
[2023-08-20] MEDS: Dicyclomine 10 MG Capsule PO (03:50)
[2023-08-20 03:52] VITALS: BP 133/74; PULSE 77; RESP 18; TEMP 36.1; O2SAT 94
[2023-08-20 07:34] VITALS: PULSE 63; RESP 16; O2SAT 95
[2023-08-20] MEDS: Ipratropium/Albuterol Sulfate 3 ML AMPUL.NEB INHALATION (07:34)
--- NOTE | 2023-08-20 08:30 | PN.HOSP_ITS ---
Subjective Subjective Breathing better, though, still needs oxygen with activity. Objective Data Objective Data Vital Signs: Vital Signs Temp Pulse Resp BP Pulse Ox O2 Del Method O2 Flow Rate 36.1 C L 63 16 133/74 H 95 Nasal Cannula 3 08/20/23 03:52 08/20/23 07:34 08/20/23 07:34 08/20/23 03:52 08/20/23 07:34 08/20/23 07:34 08/20/23 07:34 Oxygen Flow Rate (L/min) [ 2 AMBULATING with Oxygen #1] Oxygen Flow Rate (L/min) [ 0 AMBULATING on Room Air] Oxygen Flow Rate (L/min) [At 0 REST on Room Air] Oxygen Flow Rate (L/min) 3 Oxygen Delivery Method Nasal Cannula Weight: 66.1 kg Body Mass Index (BMI) 26.6 Intake & Output: Intake and Output for Last 24 Hours 08/18/23 08/19/23 08/20/23 23:59 23:59 23:59 Intake Total 370 / 570 450 / 450 Balance 370 / 570 450 / 450 Lab / Micro Data 08/19/23 05:50 08/19/23 05:50 Micro: Microbiology 08/19/23 00:40 Urine, Clean Catch Legionella Antigen - Final 08/19/23 00:40 Urine, Clean Catch Streptococcus pneumoniae Antigen (M - Final 08/18/23 17:31 Mucosa - Nasopharyngeal Respiratory Panel (PCR) - Final 08/18/23 14:10 Mucosa - Nose SARS-CoV-2, Influenza & RSV (PCR) - Final SARS-CoV-2 (COVID 19 PCR) Physical Exam Const alert and no apparent distress HEENT head/scalp atraumatic and moist oral mucous membranes Resp normal respiratory effort, no retractions, no use of accessory muscles and clear to auscultation bilaterally Cardio regular rate, regular rhythm, S1 normal heart sound and S2 normal heart sound GI normal to inspection, nondistended, normoactive bowel sounds, soft to palpation and non-tender Assessment & Plan Assessment/Plan (1) COVID-19: PLAN: Plan Acute COVID 19 * Onset likely the . Quarantine through 08/26. * Received dexamethasone, remdesivir in the hospital. Will discharge to complete 10-day course of dexamethasone. Hypoxia * 2/2 COVID 19 and COPD. * wean oxygen as able. * check home oxygen evaluation. * Patient did fine at rest but will require 2 L of oxygen with activity. Patient is ambulatory in home and in the community and requires home oxygen with portability. Chronic conditions: * Hx TIA/PAD/bilateral carotid stenosis-Cont plavix-Continue statin * Chronic pain-Follows with pain management. 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
[2023-08-20 09:50] VITALS: BP 113/57; PULSE 86; RESP 16; TEMP 36.6; O2SAT 95
[2023-08-20 09:58] VITALS: O2SAT 88; O2SAT 90
[2023-08-20] MEDS: Remdesivir 100 MG in 0.9% Normal Saline (250mL Bag) 230 ML 250 MG IV (10:04)
[2023-08-20] MEDS: 0.9% Saline Lock 10 ML Syringe IV (10:04)
[2023-08-20] MEDS: dexAMETHasone 10 MG/ML Vial 6 MG IV (10:05)
[2023-08-20] MEDS: Furosemide 40 MG Tablet PO (10:07)
[2023-08-20] MEDS: guaiFENesin 1,200 MG Tablet 1200 MG PO (10:07)
[2023-08-20] MEDS: DULoxetine Hcl 30 MG Capsule PO (10:07)
[2023-08-20] MEDS: Enoxaparin 30 MG/0.3 ML Syringe SC (10:07)
[2023-08-20] MEDS: Spironolactone 25 MG Tablet PO (10:07)
[2023-08-20] MEDS: Clopidogrel Bisulfate 75 MG Tablet PO (10:07)
[2023-08-20 11:11] VITALS: BP 126/49
[2023-08-20] MEDS: Carvedilol 12.5 MG Tablet PO (11:13)
[2023-08-20] MEDS: Losartan Potassium 50 MG Tablet PO (11:13)
--- NOTE | 2023-08-20 11:37 | DS.PCM_ITS ---
Providers Date of Admission: 08/18/23 Primary Care Physician: Dr. Anu Mortensen MD Reason For Visit: HYPOXIA 2/2 COVID 19 Diagnosis Discharge Diagnosis (1) COVID-19: Status: Acute Code(s): U07.1 - COVID-19 Plan Acute COVID 19 * Onset likely the . Quarantine through 08/26. * Received dexamethasone, remdesivir in the hospital. Will discharge to complete 10-day course of dexamethasone. Hypoxia * 2/2 COVID 19 and COPD. * wean oxygen as able. * check home oxygen evaluation. * Patient did fine at rest but will require 2 L of oxygen with activity. Patient is ambulatory in home and in the community and requires home oxygen with portability. Chronic conditions: * Hx TIA/PAD/bilateral carotid stenosis-Cont plavix-Continue statin * Chronic pain-Follows with pain management. 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-Avoid nephrotoxic agents-Daily BMP DVT ppx: Lovenox subcu Medications at Discharge Home Medications atorvastatin 40 mg tablet 40 mg PO QHS cholesterol 02/22/16 clopidogrel 75 mg tablet 75 mg PO DAILY BLOOD THINNER 02/22/16 multivitamin with folic acid 400 mcg tablet 1 tab PO DAILY supplement 02/22/16 spironolactone 25 mg tablet 25 mg PO DAILY FLUID RETENTION 02/22/16 albuterol sulfate 90 mcg/actuation aerosol inhaler 2 puff inhalation BID PRN shortness of breath or wheezing 03/16/18 cholecalciferol (vitamin D3) 25 mcg (1,000 unit) tablet 2,500 unit PO DAILY SUPPLEMENT 10/09/18 furosemide 40 mg tablet 40 mg PO DAILY FLUID RETENTION #90 tabs 01/27/22 albuterol sulfate 2.5 mg/3 mL (0.083 %) solution for nebulization 2.5 mg inhalation Q4H PRN shortness of breath or wheezing 05/28/22 ipratropium 0.5 mg-albuterol 3 mg (2.5 mg base)/3 mL nebulization soln 3 ml inhalation Q6H PRN shortness of breath 05/28/22 budesonide 0.5 mg/2 mL suspension for nebulization 0.25 mg inhalation TID PRN shortness of breath 12/06/22 carvedilol 12.5 mg tablet 12.5 mg PO BID CHOLESTEROL #180 tabs 04/27/23 losartan 50 mg tablet 50 mg PO DAILY BLOOD PRESSURE #90 tabs 08/01/23 duloxetine 30 mg capsule,delayed release 30 mg PO BID pain 08/17/23 hydrocodone-acetaminophen 5-325mg 5mg-325mg 1 tab PO TID PRN pain 08/17/23 pramipexole 1.5 mg tablet 1.5 mg PO QHS restless leg syndrome 08/18/23 dexamethasone 6 mg tablet 6 mg PO DAILY #7 tabs 08/20/23 Hospital Course Operations None Procedures None Summary of Care Provided Minutes Spent on Discharge: 32 Hospital Course: Patient presents with shortness of breath and hypoxia. Patient was found to have COVID-19. Patient started on dexamethasone and remdesivir. Patient is improved but still does require oxygen with activity. Patient will be discharged today to complete a course of dexamethasone. Weight / BMI Weight Weight: 66.1 kg Body Mass Index (BMI) 26.6 ABG / Lab / Microbiology Data 08/19/23 05:50 08/19/23 05:50 Microbiology: Microbiology 08/19/23 00:40 Urine, Clean Catch Legionella Antigen - Final 08/19/23 00:40 Urine, Clean Catch Streptococcus pneumoniae Antigen (M - Final 08/18/23 17:31 Mucosa - Nasopharyngeal Respiratory Panel (PCR) - Final 08/18/23 14:10 Mucosa - Nose SARS-CoV-2, Influenza & RSV (PCR) - Final SARS-CoV-2 (COVID 19 PCR) D/C Instructions Discharge Diet: No restrictions Meaningful Use Info Meaningful Use Diagnoses (Choose all that apply): None applicable Discharge Plan Admission Admit Date/Time: 08/18/23 15:54 Primary Reason for Your Visit: COVID 19. Attending Provider: Herrera Bauman Primary Care Provider: Anu Mortensen Consulting Providers: Yenny Abdul Instructions Additional Instructions / Restrictions: You have COVID-19. To protect others, recommend quarantining at home through the ninth. If you do need to go, please wear a mask and advised others to around you to wear a mask as well. Discharge Orders/Prescriptions Prescriptions: New dexamethasone 6 mg tablet 6 mg PO DAILY Qty: 7 0RF Continued cholecalciferol (vitamin D3) 1,000 unit tablet 2,500 unit PO DAILY albuterol sulfate 2.5 mg /3 mL (0.083 %) solution for nebulization 2.5 mg inhalation Q4H PRN (Reason: shortness of breath or wheezing) ipratropium-albuterol 0.5 mg-3 mg(2.5 mg base)/3 mL solution for nebulization 3 ml inhalation Q6H PRN (Reason: shortness of breath) budesonide 0.5 mg/2 mL suspension for nebulization 0.25 mg inhalation TID PRN (Reason: shortness of breath) duloxetine 30 mg capsule,delayed release(DR/EC) 30 mg PO BID Patient Comments: pt states she is stopping med today hydrocodone-acetaminophen 5-325 mg tablet 1 tab PO TID PRN (Reason: pain) Patient Comments: pt states she is stopping med today atorvastatin 40 MG tablet 40 mg PO QHS clopidogrel 75 MG tablet 75 mg PO DAILY spironolactone 25 MG tablet 25 mg PO DAILY multivitamin with folic acid 1 TABLET tablet 1 tab PO DAILY albuterol sulfate 90 mcg/actuation HFA aerosol inhaler 2 puff INHALATION BID PRN (Reason: shortness of breath or wheezing) pramipexole 1.5 mg tablet 1.5 mg PO QHS furosemide 40 mg tablet 40 mg PO DAILY Qty: 90 3RF Hold Instructions: Hold for 2 days. carvedilol 12.5 mg tablet 12.5 mg PO BID Qty: 180 4RF Rx Instructions: must administer with a meal/food losartan 50 mg tablet 50 mg PO DAILY Qty: 90 3RF Referrals / Follow Up: Anu Mortensen MD [Primary Care Provider] - Within 2 Weeks Disposition Disposition (needs filled in before D/C Order can be placed): Home, Self Care Charges/Coding Visit Charges Inpatient E&M: 05924 Disch Hosp >30min
== END 2023-08-20 14:48 | disposition home or self-care (01) | DRG 177 ==
LOC: ED 15:54 → PCU 16:35
PROVIDERS: Nurse Practitioner; Admitting Provider Internal Medicine; Emergency Provider Student in an Organized Health Care Education/Training Program; PCP Internal Medicine
DX: U07.1 COVID-19 (principal); J12.82 Pneumonia due to coronavirus disease 2019; J44.9 Chronic obstructive pulmonary disease, unspecified; N18.32 Chronic kidney disease, stage 3b; D53.9 Nutritional anemia, unspecified; I12.9 Hypertensive chronic kidney disease with stage 1 through stage 4 chronic kidney disease, or unspecified chronic kidney disease; I65.23 Occlusion and stenosis of bilateral carotid arteries; G25.81 Restless legs syndrome; E78.5 Hyperlipidemia, unspecified; G89.29 Other chronic pain; R09.02 Hypoxemia; Z79.51 Long term (current) use of inhaled steroids; Z79.02 Long term (current) use of antithrombotics/antiplatelets; Z79.899 Other long term (current) drug therapy; Z87.891 Personal history of nicotine dependence; Z86.73 Personal history of transient ischemic attack (TIA), and cerebral infarction without residual deficits
CPT/HCPCS: 36415; 71045; 80048; 80053; 82550; 82607; 82728; 82746; 83540; 83550; 83605; 83615; 83735; 83880; 84145; 84443; 84484; 85025; 85379; 85384; 85610; 86140; 87449; 87631; 87633; 93005; 94640; 94668; 99252; 99285; J7050; A4216; G0463; J0248

== ENCOUNTER → 2023-08-29 | Outpatient (CLI) | payer MEDICARE, SELFPAY ==
--- NOTE | 2023-08-29 09:38 | CDU_ITS ---
Reason For Study: Right carotid bruit, Lt CEA Rt. Velocities/BP Lt. Velocities/BP Prox CCA 35.2/9.7 cm/sec. Prox CCA 38.8/14.6 cm/sec. Mid CCA 47.5/15.4 cm/sec. Mid CCA 38.8/12.4 cm/sec. Dist CCA 42.8/12.6 cm/sec. Dist CCA 122.9/22.5 cm/sec. Prox ICA 135.7/18.8 cm/sec. Prox ICA 121.1/20.6 cm/sec. Mid ICA 119.3/20.6 cm/sec. Mid ICA 79.1/17 cm/sec. Dist ICA 97.6/18 cm/sec. Dist ICA 70/18.8 cm/sec. Rt. ICA/CCA = 3.17. Lt. ICA/CCA = 3.12. Prox ECA 58.7/4.6 cm/sec. Prox ECA 79.1/4.2 cm/sec. Rt. Vert. 44.3/11.3 cm/sec. Lt. Vert. 20.1/6.6 cm/sec. Right Extracranial There is heterogeneous, irregular atherosclerotic plaque noted in the right common carotid artery. There is heterogeneous, irregular atherosclerotic plaque noted in the right internal carotid artery. There is heterogeneous, irregular atherosclerotic plaque noted in the right external carotid artery. Antegrade flow is noted in the right vertebral artery. Left Extracranial There is heterogeneous, irregular atherosclerotic plaque noted in the left common carotid artery. There is homogeneous, smooth atherosclerotic plaque noted in the left internal carotid artery. There is heterogeneous, irregular atherosclerotic plaque noted in the left external carotid artery. Antegrade flow is noted in the left vertebral artery. Procedure Carotid Duplex 17611. This is a Carotid Duplex examination using B-mode, color flow and specral Doppler. Technically difficult due to patient labored breathing. Exam performed in department. VL/Carotid Duplex Ultrasound Interpretation Summary Moderate (50-69%) stenosis right extracranial internal carotid. Mild (<50%) stenosis left extracranial internal carotid. Patent and antegrade vertebrals bilaterally. Ordering Physician: Dudley Thompson Referring Physician: Anu Mortensen M.D. Performed By: Cynthia Max RVT
== END | disposition home or self-care (01) ==
LOC: CVS 09:36
PROVIDERS: PCP Internal Medicine; Referring Provider Internal Medicine Cardiovascular Disease; Visit Provider Internal Medicine Cardiovascular Disease
DX: I65.23 Occlusion and stenosis of bilateral carotid arteries (principal)
CPT/HCPCS: 93880

== ENCOUNTER 2023-09-03 09:36 | Inpatient (IN) | payer MEDICARE, SELFPAY ==
[2023-09-03] VITALS (12 sets, daily range): BP systolic 97–146; BP diastolic 42–100; PULSE 74–110; RESP 16–30; TEMP 36.2–36.8; O2SAT 92–96; BMI 27.6; BMI 26.7
--- NOTE | 2023-09-03 10:00 | EKG12_ITS ---
Test Reason : BACK PAIN Blood Pressure : / mmHG Vent. Rate : 110 BPM Atrial Rate : 110 BPM P-R Int : 176 ms QRS Dur : 106 ms QT Int : 336 ms P-R-T Axes : 070 150 029 degrees QTc Int : 454 ms Sinus tachycardia with Fusion complexes Right axis deviation Incomplete right bundle branch block Right ventricular hypertrophy Marked ST abnormality, possible lateral subendocardial injury Abnormal ECG Confirmed by SILVIA GOETZ, TOO ([id number]), editor map RAMIN HUNG ([id number]) on 09/05/2023 10:08:21 AM Referred By: Confirmed By:TOO VEGA MD
[2023-09-03 10:16] LABS: Absolute Lymphocyte Count 0.99 X10^3/uL (0.83-4.51); Absolute Neutrophil Count 6.6 X10^3/uL (2.0-7.7); Basophil# 0.02 X10^3/uL; Basophil% 0.2 % (0-1); Eosinophil# 0.14 X10^3/uL; Eosinophils% 1.7 % (0-5); Hematocrit 32.3 % (37-47); Hemoglobin 10.2 g/dL (12.0-15.0); Lymphocyte # 0.99 X10^3/ul (0.83-4.51); Lymphocyte % 11.8 % (19-41); Mean Corp Hgb Conc 31.6 g/dL (32-36); Mean Corpuscular Volume 98.2 fL (81-99); Mean Platelet Vol. 10.5 fl (6.2-12.0); Monocyte# 0.55 X10^3/uL; Monocyte% 6.5 % (0-10); NRBC Flagged by Analyzer 0 % (0-5); Neutrophil # 6.59 X10^3/uL (2.7-7.7); Neutrophil % 78.5 % (47-70); Platelet Count 183 K/mm3 (150-450); RBC Distribution Width CV 16.4 % (11.6-14.6); RBC Distribution Width SD 59.6 fl (35.1-43.9); Red Blood Count 3.29 M/mm3 (4.2-5.4); White Blood Count 8.4 K/mm3 (4.4-11.0)
--- NOTE | 2023-09-03 10:25 | RAD_ITS ---
EXAM: XR CHEST, 1 VIEW CLINICAL INDICATION: dyspnea TECHNIQUE: Frontal view of the chest. COMPARISON: XR Chest dated 08/18/2023 FINDINGS: LUNGS AND PLEURAL SPACES: Improving right middle lobe and lingular infiltrates/atelectasis. HEART: Normal heart size. MEDIASTINUM: No mediastinal or hilar mass. BONES/JOINTS: No acute abnormality. RAD/Chest 1 View (Portable) IMPRESSION: Improving right middle lobe and lingular pneumonia/atelectasis. Electronically Signed: Min Senior MD at 10:50 EST ,
[2023-09-03 10:26] LABS: Anion Gap 2 (5-15); BUN 54 mg/dL (7-18); BUN/Creat Ratio 43.9 RATIO (10-20); Calcium,Total 9.3 mg/dL (8.5-10.1); Chloride 107 mmol/L (98-107); Creatinine, Serum 1.23 mg/dL (0.55-1.02); EST Glomerular Filtration Rate 44 mL/min (>60); Est Glom Filt Rate - Afr Amer 53 mL/min (>60); Estimated Creatinine Clearance 30.31 ml/min; Glucose 184 mg/dL (74-106); Potassium 4.8 mmol/L (3.5-5.1); Sodium Level 140 mmol/L (136-145)
[2023-09-03] MEDS: Ondansetron 4 MG/2 ML Vial IV (10:32)
[2023-09-03] MEDS: fentaNYL 100 MCG/2 ML Ampul 25 MCG IV (10:34)
[2023-09-03 10:36] LABS: BNP,B-Type NATRIURETIC PEPTIDE 210.1 pg/mL (0-100)
[2023-09-03] MEDS: 0.9% Normal Saline (500mL Bag) 500 ML 999 ML IV (10:59)
--- NOTE | 2023-09-03 11:25 | EX.ED.DYSGE1 ---
HPI History of Present Illness Chief Complaint: Back Narrative Narrative: 87-year-old female presenting with back pain which is not a new issue. She states she has had back pain for a very long time. She is seeing pain management for this. She has had 2 injections. She states he is going to be referred to a spinal surgeon in the future. Patient also states that she believes she is having a COPD exacerbation. Patient recently admitted for COVID-19 and was discharged home. She is now wearing 2 L at home which she did not wear before she came into the hospital. Patient was on steroids but is no longer. She saw her PCP yesterday and had some labs drawn and x-ray. She was going to start on prednisone send but came to the emergency room due to worsening back pain. This is on the lower back on the right side. States radiates into the right leg. Patient has no fevers or chills at home. She states that she did not have any symptoms when she had COVID-19 and only was hypoxic. Denies chest pain. She is not nauseous or vomiting. [facility] Medical History Bilateral carotid artery stenosis Chronic kidney disease Claudication Diverticulosis Dyslipidemia Essential hypertension History of COPD History of TIA (transient ischemic attack) Leg edema Limb weakness Muscle spasm of left shoulder area Neck and back pain PAD (peripheral artery disease) Renal cyst RLS (restless legs syndrome) Shortness of breath Shoulder pain TIA (transient ischemic attack) Vertigo Home Medications atorvastatin 40 mg tablet 40 mg PO QHS cholesterol 02/22/16 [History Last Taken 09/02/23] clopidogrel 75 mg tablet 75 mg PO DAILY BLOOD THINNER 02/22/16 [History Last Taken 09/02/23] multivitamin with folic acid 400 mcg tablet 1 tab PO DAILY supplement 02/22/16 [History Last Taken 09/02/23] spironolactone 25 mg tablet 25 mg PO DAILY FLUID RETENTION 02/22/16 [History Last Taken 06/19/23] albuterol sulfate 90 mcg/actuation aerosol inhaler 2 puff inhalation BID PRN shortness of breath or wheezing 03/16/18 [History Last Taken 09/02/23] cholecalciferol (vitamin D3) 25 mcg (1,000 unit) tablet 2,500 unit PO DAILY SUPPLEMENT 10/09/18 [History Last Taken 09/02/23] furosemide 40 mg tablet 40 mg PO DAILY FLUID RETENTION #90 tabs 01/27/22 [Rx Last Taken 09/02/23] albuterol sulfate 2.5 mg/3 mL (0.083 %) solution for nebulization 2.5 mg inhalation Q4H PRN shortness of breath or wheezing 05/28/22 [History Last Taken 09/02/23] ipratropium 0.5 mg-albuterol 3 mg (2.5 mg base)/3 mL nebulization soln 3 ml inhalation Q6H PRN shortness of breath 05/28/22 [History Last Taken 09/02/23] budesonide 0.5 mg/2 mL suspension for nebulization 0.25 mg inhalation TID PRN shortness of breath 12/06/22 [History Last Taken 09/02/23] carvedilol 12.5 mg tablet 12.5 mg PO BID CHOLESTEROL #180 tabs 04/27/23 [Rx Last Taken 09/02/23] losartan 50 mg tablet 50 mg PO DAILY BLOOD PRESSURE #90 tabs 08/01/23 [Rx Last Taken 09/02/23] duloxetine 30 mg capsule,delayed release 30 mg PO BID pain 08/17/23 [History Last Taken 09/02/23] pramipexole 1.5 mg tablet 1.5 mg PO QHS restless leg syndrome 08/18/23 [History Last Taken 09/02/23] dexamethasone 6 mg tablet 6 mg PO DAILY #7 tabs 08/20/23 [Rx Last Taken Unknown] diclofenac sodium 1 % topical gel topical 09/03/23 [History Last Taken Unknown] prednisone 10 mg tablet 10 mg PO DAILY 09/03/23 [History Last Taken Unknown] Allergy/AdvReac Type Severity Reaction Status Date / Time lisinopril Allergy edema Verified 09/03/23 09:41 aspirin AdvReac Upset Verified 09/03/23 09:41 Stomach Family History Mother Heart disease Surgical History History of basal cell carcinoma excision History of carotid angioplasty History of kidney stones History of thyroid surgery History of total hysterectomy Social History household members: none housing: house Smoking Status: Former smoker how long ago did patient quit smokin years ago alcohol intake: current alcohol intake frequency: holidays/special occasions only details: rare substance use type: does not use caffeine: Yes Type: coffee Number of servings: 1 ROS ROS ED Constitutional Constitutional ED: Denies chills, fever(s) or sweats Eyes Eyes: Denies blurry vision or change in vision ENT ENT ED: Denies ear pain or sore throat Cardiovascular Cardiovascular: Denies chest pain, palpitations or racing heartbeat Respiratory/Chest Respiratory/Chest: Reports dyspnea and dyspnea on exertion; Denies cough or sputum Gastrointestinal Gastrointestinal: Denies abdominal pain, constipation, diarrhea, nausea or vomiting Genitourinary Genitourinary ED: Denies dysuria, hematuria or urinary frequency Musculoskeletal Musculoskeletal: Reports back pain; Denies arthralgias, myalgias or neck pain Integumentary Denies abscess, Abrasions or rash Neurologic Neurologic: Denies headache(s), paresthesias or weakness Psychiatric Psychiatric: Denies anxiety, depression, suicidal ideation or suicidal thoughts Endocrine Endocrinology: Denies polydipsia or polyuria EXAM Physical Exam Const Vital Signs: 09/03/23 09:37 09/03/23 10:07 09/03/23 11:05 Temperature 97.6 F L Temperature Source Temporal Pulse Rate 110 H 93 Respiratory Rate 26 H 30 H Blood Pressure 146/100 H 113/55 L Blood Pressure Mean 115 74 Pulse Ox 92 96 Oxygen Delivery Method Nasal Cannula Room Air Nasal Cannula Oxygen Flow Rate (L/min) 2 09/03/23 11:43 09/03/23 12:37 Temperature 97.2 F L Temperature Source Pulse Rate 97 99 Respiratory Rate 28 H 24 H Blood Pressure 103/51 L 115/66 Blood Pressure Mean 68 82 Pulse Ox 95 92 Oxygen Delivery Method Nasal Cannula Oxygen Flow Rate (L/min) 2 Positive well nourished General Appearance ED: NAD; Negative for pallor HEENT Reports dry mucous membranes Mouth ED: Yes dry mucous membranes Mouth: dry mucous membranes Eyes PERRL and EOMs intact bilaterally Chest Wall inspection of chest normal Resp Resp Narrative: Tachypneic. Scattered wheezes. Cardio regular rate and regular rhythm GI normal to inspection, nondistended, normoactive bowel sounds Neuro oriented x3 and CN's II-XII intact bilaterally Sensorium / Orientation: alert Psych mental status grossly normal Skin no rashes or lesions noted General Skin Exam: Negative for jaundice or pallor MDM MDM MDM Narrative Medical decision making narrative: Patient presenting with concern for COPD exacerbation. She recently had COVID. She is not on any steroids currently. She is given breathing treatments and Solu-Medrol here in the ED. Chest x-ray will be obtained to rule out pneumonia. Differential also includes CHF so we will obtain a BMP. CBC to assess white blood cell count, hemoglobin, platelets. BMP to assess renal function, electrolytes, glucose. BNP to assess for CHF. Patient was given fentanyl 25 mcg to help with pain. She was given Zofran for nausea. Patient currently on her 2 L at 96%. CBC unremarkable. BMP shows creatinine of 1.23. BUN 54. Electrolytes unremarkable. Glucose 184 without anion gap. BNP 210. Chest x-ray on my interpretation does not show anything new or acute. Radiology interprets this as improving infiltrate. High-sensitivity troponin came back at 1220. Discussed with hospitalist regarding this who did speak with cardiology (Dr. Thompson) who did not believe he needed a heparin drip. She does not have any chest pain and she denies having had any chest pain. Patient was given 324 mg of aspirin. She was given a [place] for her pain in her lower back. She is admitted to the hospitalist stable condition. Impression: 1. NSTEMI 2. COPD exacerbation 3. Back pain 4. Debility Lab Data Attestation: I reviewed the patient's lab results. Labs: Laboratory Results - last 24 hr 09/03/23 09:45 WBC 8.4 RBC 3.29 L Hgb 10.2 L Hct 32.3 L MCV 98.2 MCH 31.0 MCHC 31.6 L RDW Std Deviation 59.6 H RDW Coeff of Ha 16.4 H Plt Count 183 MPV 10.5 Immature Gran % (Auto) 1.300 H Neut % (Auto) 78.5 H Lymph % (Auto) 11.8 L [place] % (Auto) 6.5 Eos % (Auto) 1.7 Baso % (Auto) 0.2 Absolute Neuts (auto) 6.6 Absolute Lymphs (auto) 0.99 Nucleated RBC % 0 Sodium 140 Potassium 4.8 Chloride 107 Carbon Dioxide 31.0 Anion Gap 2 L BUN 54 H Creatinine 1.23 H Estim Creat Clear Calc 30.31 Est GFR (MDRD) Af Amer 53 L Est GFR (MDRD) Non-Af 44 L BUN/Creatinine Ratio 43.9 H Glucose 184 H Calcium 9.3 Troponin I High Sens 1220 H* B-Natriuretic Peptide 210.1 H Radiography Diagnostic Testing: Clinical Impression(s) from Imaging Studies Chest X-Ray 09/03/23 10:25 IMPRESSION: Improving right middle lobe and lingular pneumonia/atelectasis. Electronically Signed: Min Senior MD at 10:50 EST , Discharge Plan Triage Chief Complaint: Back ED Provider: Matthew Schuster Dx/Rx/DC Orders Prescriptions: No Action cholecalciferol (vitamin D3) 1,000 unit tablet 2,500 unit PO DAILY albuterol sulfate 2.5 mg /3 mL (0.083 %) solution for nebulization 2.5 mg inhalation Q4H PRN (Reason: shortness of breath or wheezing) ipratropium-albuterol 0.5 mg-3 mg(2.5 mg base)/3 mL solution for nebulization 3 ml inhalation Q6H PRN (Reason: shortness of breath) budesonide 0.5 mg/2 mL suspension for nebulization 0.25 mg inhalation TID PRN (Reason: shortness of breath) duloxetine 30 mg capsule,delayed release(DR/EC) 30 mg PO BID atorvastatin 40 MG tablet 40 mg PO QHS clopidogrel 75 MG tablet 75 mg PO DAILY spironolactone 25 MG tablet 25 mg PO DAILY multivitamin with folic acid 1 TABLET tablet 1 tab PO DAILY albuterol sulfate 90 mcg/actuation HFA aerosol inhaler 2 puff INHALATION BID PRN (Reason: shortness of breath or wheezing) pramipexole 1.5 mg tablet 1.5 mg PO QHS dexamethasone 6 mg tablet 6 mg PO DAILY Qty: 7 0RF Hold Instructions: duplicate Patient Comments: states was to start this am prednisone 10 mg tablet 10 mg PO DAILY Patient Comments: pt was supposed to start this morning, was not able to diclofenac sodium 1 % gel TOPICAL Patient Comments: pt using, but unaware of directions furosemide 40 mg tablet 40 mg PO DAILY Qty: 90 3RF Hold Instructions: Hold for 2 days. carvedilol 12.5 mg tablet 12.5 mg PO BID Qty: 180 4RF Rx Instructions: must administer with a meal/food losartan 50 mg tablet 50 mg PO DAILY Qty: 90 3RF Primary Care Provider: Anu Mortensen Referrals: Anu Mortensen MD [Primary Care Provider] -
[2023-09-03 12:09] LABS: Troponin-I HS 1220 pg/mL (3.0-54.0)
[2023-09-03] MEDS: Aspirin 81 MG TAB.CHEW 324 MG PO (12:32)
[2023-09-03] MEDS: HYDROcodone Bitartrate/Apap 5/325 Tablet PO (12:32)
--- NOTE | 2023-09-03 13:29 | PCM.HP.STD ---
HPI - General General Date of Admission: 09/03/23 Date of Service: 09/03/23 Chief Complaint: Shortness of breath, right leg pain HPI Narrative DICK ARTIS, is a 87 F who presents to the emergency room at [facility] with complaints of back pain and right leg pain that caused her to be unable to get up out of bed today, she also complains of shortness of breath over the last 2 weeks since she has had COVID. Patient was hospitalized here for COVID-19 and was discharged on 08/20/2023, patient was set up with home O2 at 2 L, she says that despite this she feels short of breath at home. Patient does have a history of COPD. 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 Labs obtained in the emergency room showed a normal white blood cell count, hemoglobin was 10.2, creatinine was 1.23 and BUN was 54. Glucose was 184. Patient's troponin was elevated at 1220 and her beta natruretic peptide was 210. EKG showed normal sinus rhythm with a right bundle branch block. Patient denied any chest pain. Patient will be admitted to PCU, enzymes will be cycled, patient will be placed on IV Decadron for her back discomfort, gabapentin, and as needed narcotics. Patient will be given aerosol treatments and pulse ox will be monitored. I have decided to place patient on IV Lasix. I do not believe the patient has pneumonia-patient had a chest x-ray during her recent admission while she had COVID, this chest x-ray showed bilateral infiltrates at this time. ON LICENSE OF [facility] Medical History Bilateral carotid artery stenosis Chronic kidney disease Claudication Diverticulosis Dyslipidemia Essential hypertension History of COPD History of TIA (transient ischemic attack) Leg edema Limb weakness Muscle spasm of left shoulder area Neck and back pain PAD (peripheral artery disease) Renal cyst RLS (restless legs syndrome) Shortness of breath Shoulder pain TIA (transient ischemic attack) Vertigo Home Medications atorvastatin 40 mg tablet 40 mg PO QHS cholesterol 02/22/16 [History Last Taken 09/02/23] clopidogrel 75 mg tablet 75 mg PO DAILY BLOOD THINNER 02/22/16 [History Last Taken 09/02/23] multivitamin with folic acid 400 mcg tablet 1 tab PO DAILY supplement 02/22/16 [History Last Taken 09/02/23] spironolactone 25 mg tablet 25 mg PO DAILY FLUID RETENTION 02/22/16 [History Last Taken 06/19/23] albuterol sulfate 90 mcg/actuation aerosol inhaler 2 puff inhalation BID PRN shortness of breath or wheezing 03/16/18 [History Last Taken 09/02/23] cholecalciferol (vitamin D3) 25 mcg (1,000 unit) tablet 2,500 unit PO DAILY SUPPLEMENT 10/09/18 [History Last Taken 09/02/23] furosemide 40 mg tablet 40 mg PO DAILY FLUID RETENTION #90 tabs 01/27/22 [Rx Last Taken 09/02/23] albuterol sulfate 2.5 mg/3 mL (0.083 %) solution for nebulization 2.5 mg inhalation Q4H PRN shortness of breath or wheezing 05/28/22 [History Last Taken 09/02/23] ipratropium 0.5 mg-albuterol 3 mg (2.5 mg base)/3 mL nebulization soln 3 ml inhalation Q6H PRN shortness of breath 05/28/22 [History Last Taken 09/02/23] budesonide 0.5 mg/2 mL suspension for nebulization 0.25 mg inhalation TID PRN shortness of breath 12/06/22 [History Last Taken 09/02/23] carvedilol 12.5 mg tablet 12.5 mg PO BID CHOLESTEROL #180 tabs 04/27/23 [Rx Last Taken 09/02/23] losartan 50 mg tablet 50 mg PO DAILY BLOOD PRESSURE #90 tabs 08/01/23 [Rx Last Taken 09/02/23] duloxetine 30 mg capsule,delayed release 30 mg PO BID pain 08/17/23 [History Last Taken 09/02/23] pramipexole 1.5 mg tablet 1.5 mg PO QHS restless leg syndrome 08/18/23 [History Last Taken 09/02/23] dexamethasone 6 mg tablet 6 mg PO DAILY #7 tabs 08/20/23 [Rx Last Taken Unknown] diclofenac sodium 1 % topical gel topical 09/03/23 [History Last Taken Unknown] prednisone 10 mg tablet 10 mg PO DAILY 09/03/23 [History Last Taken Unknown] Allergy/AdvReac Type Severity Reaction Status Date / Time lisinopril Allergy edema Verified 09/03/23 09:41 aspirin AdvReac Upset Verified 09/03/23 09:41 Stomach Family History Mother Heart disease Surgical History History of basal cell carcinoma excision History of carotid angioplasty History of kidney stones History of thyroid surgery History of total hysterectomy Social History household members: none housing: house Smoking Status: Former smoker how long ago did patient quit smokin years ago alcohol intake: current alcohol intake frequency: holidays/special occasions only details: rare substance use type: does not use caffeine: Yes Type: coffee Number of servings: 1 ROS Constitutional Constitutional: Reports fatigue and weakness; Denies anorexia, change in weight, chills, fever(s) or night sweats Eyes Eyes: Denies blurry vision, change in eye color, change in vision, discharge from eye(s) or eye pain Cardiovascular Cardiovascular: Reports chest pain and dyspnea on exertion; Denies claudication, edema or palpitations Respiratory/Chest Respiratory/Chest: Reports cough, dyspnea, shortness of breath at rest and shortness of breath with exertion; Denies hemoptysis Gastrointestinal Gastrointestinal: Denies abdominal pain, constipation, diarrhea, hematemesis, hematochezia, melena, nausea or vomiting Genitourinary Genitourinary: Denies dysuria, hematuria, urinary frequency, urinary hesitancy, urinary incontinence or urinary urgency Musculoskeletal Musculoskeletal: Reports back pain and other Details: Right leg radicular pain ; Denies joint pain, joint stiffness, joint swelling, myalgias or neck pain Neurologic Neurologic: Reports other Details: Right leg radicular pain ; Denies abnormal gait, abnormal speech, dizziness, focal weakness, headache(s), loss of vision, numbness, other visual disturbances, paresthesias, syncope or tingling Psychiatric Psychiatric: Denies anxiety, cognitive impairment, depression, irritability, mood swings or suicidal ideation Endocrine Endocrinology: Denies change in body appearance, cold intolerance, excessive sweating, heat intolerance, polydipsia or polyuria Hematologic/Lymphatic Hematologic/Lymphatic: Denies none, anemia, easy bleeding, easy bruising or lymphadenopathy Allergic/Immunologic Allergic/Immunologic: Denies rhinitis, urticaria, eczemia or asthma Vital Signs Vital Signs Vital Signs: 09/03/23 09:37 09/03/23 10:07 09/03/23 11:05 Temperature 97.6 F L Temperature Source Temporal Pulse Rate 110 H 93 Respiratory Rate 26 H 30 H Blood Pressure 146/100 H 113/55 L Blood Pressure Mean 115 74 Pulse Ox 92 96 Oxygen Delivery Method Nasal Cannula Room Air Nasal Cannula Oxygen Flow Rate (L/min) 2 09/03/23 11:43 09/03/23 12:37 Temperature 97.2 F L Temperature Source Pulse Rate 97 99 Respiratory Rate 28 H 24 H Blood Pressure 103/51 L 115/66 Blood Pressure Mean 68 82 Pulse Ox 95 92 Oxygen Delivery Method Nasal Cannula Oxygen Flow Rate (L/min) 2 Weight Weight: 68.4 kg Body Mass Index (BMI) 27.6 Physical Exam Const alert, oriented x3, no apparent distress and average body habitus General Appearance: cooperative, well kempt and well developed Orientation / Consciousness: awake, oriented to person, oriented to place and oriented to time HEENT normocephalic, head/scalp atraumatic, hearing grossly normal bilaterally and moist oral mucous membranes Eyes PERRL, EOMs intact bilaterally and conjunctivae normal Neck supple, no JVD, thyroid normal and no carotid bruits General: trachea midline Resp normal respiratory effort, no retractions and no use of accessory muscles Resp Narrative: Scattered expiratory rhonchi are noted Auscultation: rhonchi; Negative for rales or wheezes Cardio regular rate, regular rhythm, S1 normal heart sound, S2 normal heart sound, no murmurs, no rub and no gallops GI normal to inspection, nondistended, normoactive bowel sounds, soft to palpation, non-tender and non-distended Extremity no clubbing, cyanosis or edema Skin no rashes or lesions noted General Skin Exam: no breakdown Neuro oriented x3, CN's II-XII intact bilaterally, moves all extremities, no focal motor deficits and no sensory deficits noted Sensorium / Orientation: awake and alert Speech: speech normal Psych affect normal Results Lab / Micro Data 09/03/23 09:45 09/03/23 09:45 Labs: Laboratory Results - last 24 hr 09/03/23 09:45: WBC 8.4, RBC 3.29 L, Hgb 10.2 L, Hct 32.3 L, MCV 98.2, MCH 31.0, MCHC 31.6 L, RDW Std Deviation 59.6 H, RDW Coeff of Ha 16.4 H, Plt Count 183, MPV 10.5, Immature Gran % (Auto) 1.300 H, Neut % (Auto) 78.5 H, Lymph % (Auto) 11.8 L, [place] % (Auto) 6.5, Eos % (Auto) 1.7, Baso % (Auto) 0.2, Absolute Neuts (auto) 6.6, Absolute Lymphs (auto) 0.99, Nucleated RBC % 0, Sodium 140, Potassium 4.8, Chloride 107, Carbon Dioxide 31.0, Anion Gap 2 L, BUN 54 H, Creatinine 1.23 H, Estim Creat Clear Calc 30.31, Est GFR (MDRD) Af Amer 53 L, Est GFR (MDRD) Non-Af 44 L, BUN/Creatinine Ratio 43.9 H, Glucose 184 H, Calcium 9.3, Troponin I High Sens 1220 H*, B-Natriuretic Peptide 210.1 H Imaging Radiology Impression Chest X-Ray 09/03/23 10:25 IMPRESSION: Improving right middle lobe and lingular pneumonia/atelectasis. Electronically Signed: Mni Senior MD at 10:50 EST , Assessment & Plan Assessment/Plan (1) Non-STEMI (non-ST elevated myocardial infarction): PLAN: Plan 1. [id number] secondary to hypoxia from exacerbation of COPD, patient will be admitted to PCU, enzymes will be cycled, she will have an echocardiogram performed and see cardiology in consultation, patient will remain on aspirin and Plavix, patient is already on a statin and beta-blockers #2 exacerbation of COPD-patient was placed on IV Decadron, aerosol treatments, pulse ox will be monitored #3 spinal stenosis with right radicular pain and debility-patient will be seen by PT and OT, I will start her on gabapentin and place her on IV Decadron, she will receive IV narcotics, patient is also on Cymbalta. Patient would be a poor surgical candidate at this hospital due to her COPD history and advanced age, I talked with Dr. Jama and he confirmed this, I also talked with pain management (Dr. Low Raymundo) and he stated that the patient would need a multilevel fusion most probably. #4 hypoxia secondary to COPD and recent COVID-19 infection-patient's pulse ox will be monitored Total clinical time spent by myself addressing the patient's medical issues, reviewing all of her data, and collaborating with patient's care team: 75 minutes Charges/Coding Visit Charges Inpatient E&M: 10411 Init Hosp L3
[2023-09-03 14:25] LABS: Troponin-I HS 1240 pg/mL (3.0-54.0)
[2023-09-03] MEDS: Potassium Chloride Oral Tablet 20 MEQ PO ×2 (15:05→17:47)
[2023-09-03] MEDS: Furosemide 20 MG/2 ML VIAL IV (15:05)
[2023-09-03] MEDS: 0.9% Saline Lock 10 ML Syringe IV ×3 (15:06→23:28)
[2023-09-03] MEDS: Ipratropium/Albuterol Sulfate 3 ML AMPUL.NEB INHALATION ×2 (15:06→19:39)
[2023-09-03 16:13] LABS: Troponin-I HS 1161 pg/mL (3.0-54.0)
[2023-09-03] MEDS: Carvedilol 12.5 MG Tablet PO (17:47)
[2023-09-03] MEDS: Gabapentin 100 MG Capsule 200 MG PO (17:47)
[2023-09-03] MEDS: dexAMETHasone 4 MG/ML Vial IV ×2 (17:48→23:28)
[2023-09-03] MEDS: Albuterol 2.5 MG/3 ML VIAL.NEB. INHALATION (17:49)
[2023-09-03] MEDS: oxyCODONE 5 MG Tablet 10 MG PO (19:46)
[2023-09-03] MEDS: Pramipexole Di-HCl 0.5 MG Tablet 1.5 MG PO (21:21)
[2023-09-03] MEDS: Atorvastatin Calcium 40 MG Tablet PO (21:22)
[2023-09-03] MEDS: DULoxetine Hcl 30 MG Capsule PO (21:22)
[2023-09-03] MEDS: Heparin Injection (Vial) 5,000 UNIT/ML VIAL 5000 UNIT SC (21:22)
[2023-09-04] VITALS (11 sets, daily range): BP systolic 94–112; BP diastolic 39–60; PULSE 73–100; RESP 16–20; TEMP 36.1–36.6; O2SAT 93–95
[2023-09-04] MEDS: Ipratropium/Albuterol Sulfate 3 ML AMPUL.NEB INHALATION ×4 (02:45→19:32)
[2023-09-04] MEDS: 0.9% Saline Lock 10 ML Syringe IV ×4 (05:09→17:37)
[2023-09-04] MEDS: dexAMETHasone 4 MG/ML Vial IV ×3 (05:09→17:37)
[2023-09-04] MEDS: Potassium Chloride Oral Tablet 20 MEQ PO ×2 (08:05→17:37)
[2023-09-04] MEDS: Gabapentin 100 MG Capsule 200 MG PO ×3 (08:05→17:37)
[2023-09-04] MEDS: Aspirin E.C. 81 MG Tablet PO (08:05)
[2023-09-04] MEDS: Carvedilol 12.5 MG Tablet PO ×2 (08:05→17:37)
[2023-09-04] MEDS: Spironolactone 25 MG Tablet PO (10:28)
[2023-09-04] MEDS: Furosemide 20 MG/2 ML VIAL IV ×2 (10:28→17:38)
[2023-09-04] MEDS: Heparin Injection (Vial) 5,000 UNIT/ML VIAL 5000 UNIT SC ×2 (10:28→21:25)
[2023-09-04] MEDS: DULoxetine Hcl 30 MG Capsule PO ×2 (10:28→21:25)
--- NOTE | 2023-09-04 10:28 | CON.PCM.CA_ITS ---
Assessment & Plan Assessment/Plan (1) Hypertension: QUALIFIERS: Hypertension type: primary hypertension Qualified Code(s): I10 - Essential (primary) hypertension PLAN: The patient's blood pressure has been treated in the home environment and she had she was hypotensive after her COVID infection in July. Her medications were adjusted and she is currently tolerating her current home medicines as listed. (2) Shortness of breath: PLAN: The patient has complained of shortness of breath and she was evaluated in the office August 17, 2023 her O2 sat was 86% and after resting in the seated position it major to 88. The patient was not utilizing her home oxygen therapy when she came to the office. She reports that sometimes she goes around the house without it as well. Currently in the hospital today her O2 sat is 93% on 4 L nasal cannula. She is on 2 L in the home environment and had complained of shortness of breath when she came to the hospital. She does have COPD and has diffuse wheezing. She has been instituted on steroid therapy. (3) Bilateral carotid artery stenosis: PLAN: The patient's right internal carotid measured 50 to 69% stenosis the left was less than 50% on carotid ultrasounds done August 29, 2023. She is on Plavix in the home environment and this should be continued long-term as tolerated. (4) Elevated troponin I level: PLAN: The patient's initial troponin was 1220 the second 1240 the third 1100. I feel this probably represents a combination of her LVH which is known to be significant by echo in 07/06/2022, her COPD exacerbation, the presumed hypoxia as well as a hemoglobin of 10. This probably explains this elevation in tr oponin she has no chest pains and no EKG changes consistent with a significant ischemic burden. The patient does have what appears to be heart failure with preserved ejection fraction. She reports that her edema is completely resolved with the alteration in her medications over the last month. I do not feel that invasive evaluation for coronary ischemia is indicated at this point in time. (5) Heart failure due to high blood pressure: PLAN: The patient has a history of left ventricular hypertrophy with an ejection fraction of 65% on echo June 2022. She has been treated with Coreg 12.5 mg twice daily losartan 50 mg daily spironolactone 25 mg daily and Lasix 40 mg in the home environment. Until this COPD exacerbation this had controlled her blood pressure and had lower extremity edema. She also has a history of chronic renal insufficiency stage IIIb. Will repeat her echocardiogram in the limb as a limited echo to reevaluate her LV function. PLAN: Plan 1. Continue home medical regiment for heart failure with preserved ejection fraction with the Coreg losartan and spironolactone. She should also receive Lasix as needed. And be reinstituted on her home dose when discharged. 2. 2D echocardiogram for LV function reevaluation this will be a limited echo. 3. I do not feel that further evaluation from a cardiovascular standpoint is indicated but should her situation change please reconsult us. HPI Consult Data Date of Consult: 09/04/23 HPI Narrative Reason for Consultation: Positive Troponins HPI Narrative: DICK ARTIS, is a 87 F who presents with complaints of shortness of breath and severe back pain related to her spinal stenosis. He was unable to get out of the bed yesterday and was brought in the emergency room for evaluation and treatment. She has COPD and had COVID admitted to the hospital in July 2023. She has been on home oxygen therapy since her since COVID. She was evaluated in my office actually August 17, 2023 after we had decreased her losartan due to low blood pressures in the home environment. In the office her initial O2 sat when she first came in was 86 on room air after being seated for a while it major to 88. She did not have her oxygen with her. The patient had troponins evaluated in the emergency department on admission. The series went 1220 1240 1161. The patient denies any chest discomfort and has had no shortness of breath since early after her admission. Her O2 sats were documented in the 90% range in the emergency department. Patient is complaining of shortness of breath and has diffuse wheezing documented. The chest x-ray reveals some persistent atelectasis from her previous chest x-rays. Her EKG done September 03 at 1011 hrs. was sinus tachycardia at 110 bpm a right bundle branch block and baseline artifact but no definitive ischemia. This was really unchanged from August 18, 2023. The patient does not have a known history of coronary artery disease she does have a history of atherosclerotic vascular disease with bilateral carotid stenosis documented on a recent carotid ultrasound August 29, 2023. The right internal carotid was 50 to 69% the left was less than 50%. The patient reports that since admission she has had no chest symptoms wh atsoever. She has a history of an echocardiogram in June 2022 which showed concentric left ventricular hypertrophy and ejection fraction of 65%. She had trivial valvular heart disease and a right ventricular systolic pressure estimated at 47 with a history of COPD. The patient had been discharged from the hospital in July and her low blood pressure was treated by dropping her losartan to 50 mg daily and discontinuing her hydrochlorothiazide. When the patient was seen in office August 17 her blood pressure was well-controlled in the 110-120 systolic range. She continues to deny any syncope or near syncopal spells denies any dizziness. She reports her lower extremity she had experienced earlier in July is completely resolved. She is on a combination of Lasix and spironolactone in the home environment as well as Coreg and losartan for her heart failure with preserved ejection fraction. The patient's BNP on admission was 210. A prior reading on August 18, 2023 was 149. [facility] Medical History (Updated 09/04/23 @ 10:[address] Dudley Thompson MD) Bilateral carotid artery stenosis Chronic kidney disease Claudication Diverticulosis Dyslipidemia Essential hypertension History of COPD History of TIA (transient ischemic attack) Leg edema Limb weakness Muscle spasm of left shoulder area Neck and back pain PAD (peripheral artery disease) Renal cyst RLS (restless legs syndrome) Shortness of breath Shoulder pain TIA (transient ischemic attack) Vertigo Home Medications atorvastatin 40 mg tablet 40 mg PO QHS cholesterol 02/22/16 [History Last Taken 09/02/23] clopidogrel 75 mg tablet 75 mg PO DAILY BLOOD THINNER 02/22/16 [History Last Taken 09/02/23] multivitamin with folic acid 400 mcg tablet 1 tab PO DAILY supplement 02/22/16 [History Last Taken 09/02/23] spironolactone 25 mg tablet 25 mg PO DAILY FLUID RETENTION 02/22/16 [History Last Taken 06/19/23] albuterol sulfate 90 mcg/actuation aerosol inhaler 2 puff inhalation BID PRN shortness of breath or wheezing 03/16/18 [History Last Taken 09/02/23] cholecalciferol (vitamin D3) 25 mcg (1,000 unit) tablet 2,500 unit PO DAILY SUPPLEMENT 10/09/18 [History Last Taken 09/02/23] furosemide 40 mg tablet 40 mg PO DAILY FLUID RETENTION #90 tabs 01/27/22 [Rx Last Taken 09/02/23] albuterol sulfate 2.5 mg/3 mL (0.083 %) solution for nebulization 2.5 mg inhalation Q4H PRN shortness of breath or wheezing 05/28/22 [History Last Taken 09/02/23] ipratropium 0.5 mg-albuterol 3 mg (2.5 mg base)/3 mL nebulization soln 3 ml inhalation Q6H PRN shortness of breath 05/28/22 [History Last Taken 09/02/23] budesonide 0.5 mg/2 mL suspension for nebulization 0.25 mg inhalation TID PRN shortness of breath 12/06/22 [History Last Taken 09/02/23] carvedilol 12.5 mg tablet 12.5 mg PO BID CHOLESTEROL #180 tabs 04/27/23 [Rx Last Taken 09/02/23] losartan 50 mg tablet 50 mg PO DAILY BLOOD PRESSURE #90 tabs 08/01/23 [Rx Last Taken 09/02/23] duloxetine 30 mg capsule,delayed release 30 mg PO BID pain 08/17/23 [History Last Taken 09/02/23] pramipexole 1.5 mg tablet 1.5 mg PO QHS restless leg syndrome 08/18/23 [History Last Taken 09/02/23] dexamethasone 6 mg tablet 6 mg PO DAILY #7 tabs 08/20/23 [Rx Last Taken Unknown] diclofenac sodium 1 % topical gel topical 09/03/23 [History Last Taken Unknown] prednisone 10 mg tablet 10 mg PO DAILY 09/03/23 [History Last Taken Unknown] Allergy/AdvReac Type Severity Reaction Status Date / Time lisinopril Allergy edema Verified 09/03/23 09:41 aspirin AdvReac Upset Verified 09/03/23 09:41 Stomach Family History Mother Heart disease Surgical History History of basal cell carcinoma excision History of carotid angioplasty History of kidney stones History of thyroid surgery History of total hysterectomy Social History household members: none housing: house Smoking Status: Former smoker how long ago did patient quit smokin years ago alcohol intake: current alcohol intake frequency: holidays/special occasions only details: rare substance use type: does not use caffeine: Yes Type: coffee Number of servings: 1 ROS Constitutional Constitutional: Reports as per HPI Eyes Eyes: Reports systems reviewed and no addt'l complaints, except as documented ENT HEENT: Reports systems reviewed and no addt'l complaints, except as documented Cardiovascular Cardiovascular: Reports as per HPI Respiratory/Chest Respiratory/Chest: Reports as per HPI Gastrointestinal Gastrointestinal: Reports systems reviewed and no addt'l complaints, except as documented Genitourinary Genitourinary: Reports systems reviewed and no addt'l complaints, except as documented Musculoskeletal Musculoskeletal: Reports as per HPI Integumentary Integumentary: Reports systems reviewed and no addt'l complaints, except as documented Neurologic Neurologic: Reports systems reviewed and no addt'l complaints, except as documented Psychiatric Psychiatric: Reports systems reviewed and no addt'l complaints, except as documented Endocrine Endocrinology: Reports systems reviewed and no addt'l complaints, except as documented Hematologic/Lymphatic Hematologic/Lymphatic: Reports systems reviewed and no addt'l complaints, except as documented Allergic/Immunologic Allergic/Immunologic: Reports systems reviewed and no addt'l complaints, except as documented Physical Exam Const oriented x3 HEENT normocephalic Eyes EOMs intact bilaterally Neck no JVD Carotids: bruit Positive for right Chest inspection of chest normal Resp normal respiratory effort Auscultation: crackles bilateral base and localized and wheezes expiratory wheezes and throughout Cardio regular rhythm, S1 normal heart sound, S2 normal heart sound, no murmurs, no rub and no gallops Cardio Narrative: Distant heart tones and diffuse expiratory wheezing. Rate: tachycardic GI soft to palpation and non-tender Extremity no pedal edema Skin no rashes or lesions noted Neuro Neuro Narrative: Alert and oriented x 3 Psych mental status grossly normal Risk Stratification Risk Stratification Applicable: Yes Age >/= 65: Yes >/= 3 CAD Risk Factors (HTN, HLD, DM, family hx of CAD, or current smoker): No Aspirin Use in the Past 7 Days: No Severe Angina (>/= episodes in 24 hours): No EKG ST Changes >/= 0.5mm: No Positive Cardiac Marker: Yes EDWARDO Risk Stratification Score: 2 EDWARDO % Risk: 8% Risk Charges/Coding Visit Charges Inpatient E&M: 82542 Init Hosp L3 Objective Data Vital Signs: Vital Signs Temp Pulse Resp BP Pulse Ox O2 Del Method O2 Flow Rate 97.0 F L 84 18 95/39 L 93 Nasal Cannula 4 09/04/23 10:19 09/04/23 10:19 09/04/23 10:19 09/04/23 10:19 09/04/23 10:19 09/04/23 10:19 09/04/23 10:19 Oxygen Flow Rate (L/min) 4 Oxygen Delivery Method Nasal Cannula Weight: 146 lb 4.815 oz Body Mass Index (BMI) 26.7 Intake & Output: Intake and Output for Last 24 Hours 09/02/23 09/03/23 09/04/23 23:59 23:59 23:59 Intake Total 620 / 620 120 / 120 Output Total 625 / 625 100 / 100 Balance -5 / -5 Lab / Micro Data Attestation: I reviewed the patient's lab results. 09/03/23 09:45 09/03/23 09:45 Labs: Laboratory Results - last 24 hr 09/03/23 09:45: Troponin I High Sens 1220 H*, B-Natriuretic Peptide 210.1 H 09/03/23 13:58: Troponin I High Sens 1240 H* 09/03/23 15:42: Troponin I High Sens 1161 H* Rhythm Strip Rhythm Strip: Sinus Rhythm Rate: 95 Cardiology Labs/Tests 09/03/23 09:45: B-Natriuretic Peptide 210.1 H Rhythm: EKG: ECHO: Stress Test: Cardiac Cath: PCI: CT Surgery: Holter monitor: EPS: PPM: CXR: Chest CT Scan: Radiography Diagnostic Testing: Radiology Impression Chest X-Ray 09/03/23 10:25 IMPRESSION: Improving right middle lobe and lingular pneumonia/atelectasis. Electronically Signed: Min Senior MD at 10:50 EST , EKG Initial EKG: Attestation: I personally reviewed and interpreted this EKG as follows: Interpretation: Sinus tachycardia 110 bpm right bundle branch block baseline artifact no ischemia. Unchanged from 08/18/2023
[2023-09-04] MEDS: Clopidogrel Bisulfate 75 MG Tablet PO (10:29)
--- NOTE | 2023-09-04 10:53 | ECHOL_ITS ---
Reason For Study: CHF Procedure This was a limited 2D transthoracic echocardiogram. Exam performed portable in patient room. Left Ventricle Normal left ventricle. Left ventricular systolic function is normal. The left ventricular ejection fraction is 70 %. No regional wall motion abnormalities noted. Right Ventricle Normal RV size. Normal systolic function. Atria Normal left atrium. Normal right atrium. Mitral Valve Normal mitral valve. Tricuspid Valve Normal tricuspid valve. Mild (1+) tricuspid valve insufficiency. Pulmonary artery systolic pressure is 30 mmHg. Pulmonic Valve Normal pulmonic valve. Great Vessels Normal aortic root. The pulmonary artery is normal size. Normal inferior vena cava. Pericardium/Pleural Epicardial fat. MMode/2D Measurements & Calculations LVIDd: 4.1 cm IVSd: 0.88 cm Ao root diam: 3.0 cm LVIDs: 2.6 cm LVPWd: 1.1 cm RVDd: 3.0 cm FS: 36.2 % LAV(MOD-bp): 47.6 ml LVAd ap4: 18.3 cm2 LVAd ap2: 17.1 cm2 LAV(MOD-bp) Indexed: 28.4 ml/m2 LVLd ap4: 6.4 cm LVLd ap2: 6.7 cm LAV(MOD-sp2): 44.3 ml EDV(MOD-sp4): 43.8 ml EDV(MOD-sp2): 36.6 ml LAV(MOD-sp4): 47.4 ml EDV(sp4-el): 44.6 ml EDV(sp2-el): 37.2 ml LVAs ap4: 9.2 cm2 LVAs ap2: 7.7 cm2 LVLs ap4: 5.3 cm LVLs ap2: 5.5 cm ESV(MOD-sp4): 14.8 ml ESV(MOD-sp2): 10.0 ml ESV(sp4-el): 13.4 ml ESV(sp2-el): 9.2 ml EF(MOD-sp4): 66.3 % EF(MOD-sp2): 72.8 % EF(sp4-el): 70.1 % SV(MOD-sp4): 29.1 ml SV(MOD-sp2): 26.7 ml SV(sp4-el): 31.3 ml LA dimension(2D): 3.3 cm LA A4 area: 18.1 cm2 RA A4 area: 13.1 cm2 Doppler Measurements & Calculations TR max neftali: 262.9 cm/sec TR max P.6 mmHg ECHO/Echo, Limited Study Interpretation Summary Normal left ventricle. Left ventricular systolic function is normal. The left ventricular ejection fraction is 70 %. Pulmonary artery systolic pressure is 30 mmHg. Ordering Physician: Dudley Thompson Referring Physician: Anu Mortensen Performed By: Fatoumata Osman RDCS, RVT
[2023-09-04] MEDS: Losartan Potassium 50 MG Tablet PO (12:03)
[2023-09-04] MEDS: oxyCODONE 5 MG Tablet 10 MG PO (15:32)
--- NOTE | 2023-09-04 16:40 | PCM.PN.HOSP ---
Reason for Visit Reason for Visit: Diagnoses Essential (primary) hypertension (09/03/23) Hypertensive heart disease with heart failure (09/03/23) Non-ST elevation (NSTEMI) myocardial infarction (09/03/23) Occlusion and stenosis of bilateral carotid arteries (09/03/23) Shortness of breath (09/03/23) Other specified abnormal findings of blood chemistry (09/03/23) Subjective Subjective Patient was seen and examined today, I talked briefly with cardiology about her care. Patient is now on 4 L of oxygen via nasal cannula, we are continuing mild diuresis on the patient and IV corticosteroids and breathing treatments. Patient states that she no longer has any pain down her right leg. She seems to be tolerating gabapentin well and does not appear sleepy. I feel the patient will probably need a prescription for p.o. narcotics also when she is discharged home. Objective Data Objective Data Vital Signs: Vital Signs Temp Pulse Resp BP Pulse Ox O2 Del Method O2 Flow Rate 97.3 F L 88 16 94/44 L 93 Nasal Cannula 4 09/04/23 15:25 09/04/23 15:25 09/04/23 15:25 09/04/23 15:25 09/04/23 15:25 09/04/23 15:25 09/04/23 15:25 Oxygen Flow Rate (L/min) 4 Oxygen Delivery Method Nasal Cannula Weight: 66.361 kg Body Mass Index (BMI) 26.7 Intake & Output: Intake and Output for Last 24 Hours 09/02/23 09/03/23 09/04/23 23:59 23:59 23:59 Intake Total 620 / 620 120 / 120 Output Total 625 / 625 225 / 225 Balance -5 / -5 -105 / -105 Lab / Micro Data 09/03/23 09:45 09/03/23 09:45 Rhythm Strip Rhythm Strip: Sinus Rhythm Rate: 95 Physical Exam Narrative alert, oriented x3, no apparent distress and average body habitus General Appearance: cooperative, well kempt and well developed Orientation / Consciousness: awake, oriented to person, oriented to place and oriented to time HEENT normocephalic, head/scalp atraumatic, hearing grossly normal bilaterally and moist oral mucous membranes Eyes PERRL, EOMs intact bilaterally and conjunctivae normal Neck supple, no JVD, thyroid normal and no carotid bruits General: trachea midline Resp normal respiratory effort, no retractions and no use of accessory muscles Resp Narrative: Scattered expiratory rhonchi and wheezes are noted Auscultation: rhonchi; Negative for rales Cardio regular rate, regular rhythm, S1 normal heart sound, S2 normal heart sound, no murmurs, no rub and no gallops GI normal to inspection, nondistended, normoactive bowel sounds, soft to palpation, non-tender and non-distended Extremity no clubbing, cyanosis or edema Skin no rashes or lesions noted General Skin Exam: no breakdown Neuro oriented x3, CN's II-XII intact bilaterally, moves all extremities, no focal motor deficits and no sensory deficits noted Sensorium / Orientation: awake and alert Speech: speech normal Psych affect normal Assessment & Plan Assessment/Plan (1) Heart failure due to high blood pressure: (2) Non-STEMI (non-ST elevated myocardial infarction): PLAN: Plan 1. [id number] secondary to hypoxia from exacerbation of COPD, cardiology is participating in her care, patient will remain on her present medications #2 exacerbation of COPD-patient is on aerosol treatments and is receiving IV Decadron, monitor pulse ox #3 spinal stenosis with right radicular pain and debility-patient will be seen by PT and OT, patient remains on gabapentin, IV Decadron, and narcotics as needed for pain, again she is a poor surgical candidate to have any surgery done at this institution due to her comorbidities, I explained this to her and her son who was present at the time my exam today, she will need follow-up at a bigger institution such as the clinic or [facility] for evaluation whether surgery can be done. #4 hypoxia secondary to COPD and recent COVID-19 infection-patient's pulse ox will be monitored Total clinical time spent by myself addressing the patient's medical issues, reviewing all of her data, and collaborating with patient's care team: 35 minutes Charges/Coding Visit Charges Inpatient E&M: 81315 Subs Hosp L2
[2023-09-04] MEDS: Pramipexole Di-HCl 0.5 MG Tablet 1.5 MG PO (21:25)
[2023-09-04] MEDS: Atorvastatin Calcium 40 MG Tablet PO (21:25)
[2023-09-05] VITALS (11 sets, daily range): BP systolic 87–118; BP diastolic 32–85; PULSE 70–93; RESP 16–18; TEMP 36.1–36.7; O2SAT 92–95
[2023-09-05] MEDS: 0.9% Saline Lock 10 ML Syringe IV ×4 (00:02→17:21)
[2023-09-05] MEDS: dexAMETHasone 4 MG/ML Vial IV ×5 (00:02→20:06)
[2023-09-05] MEDS: Ipratropium/Albuterol Sulfate 3 ML AMPUL.NEB INHALATION ×4 (01:42→19:08)
--- NOTE | 2023-09-05 08:52 | PCM.PN.HOSP ---
Reason for Visit Reason for Visit: Diagnoses Essential (primary) hypertension (09/03/23) Hypertensive heart disease with heart failure (09/03/23) Non-ST elevation (NSTEMI) myocardial infarction (09/03/23) Occlusion and stenosis of bilateral carotid arteries (09/03/23) Shortness of breath (09/03/23) Other specified abnormal findings of blood chemistry (09/03/23) Objective Data Objective Data Vital Signs: Vital Signs Temp Pulse Resp BP Pulse Ox O2 Del Method O2 Flow Rate 97 F L 83 16 87/48 L 94 Nasal Cannula 4 09/05/23 08:14 09/05/23 08:14 09/05/23 08:14 09/05/23 08:14 09/05/23 08:14 09/05/23 08:14 09/05/23 08:14 Oxygen Flow Rate (L/min) 4 Oxygen Delivery Method Nasal Cannula Weight: 146 lb 4.815 oz Body Mass Index (BMI) 26.7 Intake & Output: Intake and Output for Last 24 Hours 09/03/23 09/04/23 09/05/23 23:59 23:59 23:59 Intake Total 620 / 620 120 / 360 790 / 790 Output Total 625 / 625 225 / 475 450 / 450 Balance -5 / -5 -105 / -115 340 / 340 Lab / Micro Data 09/03/23 09:45 09/03/23 09:45 Rhythm Strip Rhythm Strip: Sinus Rhythm Rate: 95 Physical Exam Narrative Seen and examined. Patient admitted for shortness of breath and lumbar back pain with radiation to her right leg suggestive of sciatica pain. Shortness of breath is better but still has dyspnea on exertion. Physical exam General: Alert, Oriented x3, Cooperative, mild short of breath. HEENT: Atraumatic, PERRLA, EOMI, Normocephalic Oral: No Gingival or Mucosal Lesions/ Ulcerations Neck: Supple, No JVD, Negative Carotid Bruits Chest wall/Lungs: Air entry diminished in bilateral lung bases. Bilateral rhonchi. On 4 L of oxygen. Cardiovascular: Regular rate, Regular Rhythm, Normal S1, Normal S2, No M/G/R Abdomen: Bowel Sounds Present, Soft, Non Tender, Non-Distended : No dysuria. No renal angle tenderness. No suprapubic tenderness. Extremities: Mild bilateral lower leg pitting edema, Capillary Refill Less than 3 Seconds Skin: No rashes, No breakdown Musculoskeletal: No Tenderness to Palpation of Joints or Extremities Neurological: Cranial nerves II-XII grossly intact, DTR 2+/4. No acute focal neurological deficit. Psych/Mental Status: Flat affect. Assessment & Plan Assessment/Plan (1) Heart failure due to high blood pressure: (2) Non-STEMI (non-ST elevated myocardial infarction): PLAN: Plan 1. Acute myocardial injury probably secondary to hypoxia from exacerbation of COPD: Patient is being admitted in PCU. 2D echo shows EF 70% with no regional wall motion abnormalities therefore does not seem acute CA. Normal RV systolic function, normal left and right atria. Normal mitral valve, mild TR, PASP 30 mmHg. The patient was evaluated by recreational counselor. Advised to continue home medications for chronic HFpEF, Coreg, losartan and spironolactone. Lasix as needed. #2 acute COPD exacerbation:-patient is on aerosol treatments and is receiving IV Decadron, monitor pulse ox. Continue PT and OT #3 spinal stenosis with right radicular pain and debility- PT and OT, patient remains on gabapentin, IV Decadron, and narcotics as needed for pain, again she is a poor surgical candidate to have any surgery done at this institution due to her comorbidities. Hospitalist colleague Dr. Chuck Joshua discussed with the patient's son and advised to follow-up in tertiary care to spine surgeon to evaluate for surgery. #4 hypoxia secondary to COPD and recent COVID-19 infection-patient is still hypoxic on 4 L of oxygen. 5. Hypotension: Patient blood pressure in a.m. was 87/48 and Coreg was held. Later on BP improved to 118/85 and had Lasix, Aldactone and Cozaar which brought down the blood pressure down again 89/35, 90/32. Discussed with the nursing staff, space out all Lasix and Cozaar. Cozaar dose decreased 25 mg daily and switch to the evening time. Charges/Coding Visit Charges Inpatient E&M: 92488 Subs Hosp L2
[2023-09-05] MEDS: Heparin Injection (Vial) 5,000 UNIT/ML VIAL 5000 UNIT SC ×2 (10:08→20:06)
[2023-09-05] MEDS: Clopidogrel Bisulfate 75 MG Tablet PO (10:08)
[2023-09-05] MEDS: Furosemide 20 MG/2 ML VIAL IV ×2 (10:08→17:20)
[2023-09-05] MEDS: DULoxetine Hcl 30 MG Capsule PO ×2 (10:08→20:06)
[2023-09-05] MEDS: Losartan Potassium 50 MG Tablet PO (10:08)
[2023-09-05] MEDS: Aspirin E.C. 81 MG Tablet PO (10:08)
[2023-09-05] MEDS: Potassium Chloride Oral Tablet 20 MEQ PO ×2 (10:08→17:21)
[2023-09-05] MEDS: Spironolactone 25 MG Tablet PO (10:17)
[2023-09-05] MEDS: Gabapentin 100 MG Capsule 200 MG PO ×2 (10:17→17:21)
--- NOTE | 2023-09-05 10:45 | CASEMGMT ---
DEVANG KELLER chart review: Patient was admitted 08/18-08/20/23 for hypoxia and covid. See DEVANG KELLER assessment from 08/19/26. Patient was discharge home with resumption of [facility] and home oxygen through [employer] at 2lpm with exertion. Patient returned to [facility] ED on 09/03/23 for worsening back pain. Patient was admitted for NSTEMI, exacerbation of COPD, and intractable back pain. DEVANG KELLER in to discuss needs at discharge and readmission. Patient states she followed with PCP last week. Patient states she was taking medication as prescribed. Patient states that oxygen was setup successfully and was wearing oxygen as order. Patient states she would like to go to TCU when medically ready for additional therapy, refused SNF list. DEVANG KELLER updated SW regarding request for TCU.
--- NOTE | 2023-09-05 14:20 | CASEMGMT ---
Per RN CM patient would like to go to [facility]CU at d/c. ABBEY made referral and TCU can take patient. Gretta will start the pre-cert. ABBEY notified patient that [facility]CU can take her when she is ready to leave the hospital. Plan: d/c to [facility] TCU pending insurance approval. Luisa TEAGUE
[2023-09-05] MEDS: Atorvastatin Calcium 40 MG Tablet PO (20:06)
[2023-09-05] MEDS: Pramipexole Di-HCl 0.5 MG Tablet 1.5 MG PO (20:06)
[2023-09-06] VITALS (26 sets, daily range): BP systolic 73–117; BP diastolic 37–88; PULSE 81–102; RESP 12–37; TEMP 35.8–37.1; O2SAT 81–96
[2023-09-06] MEDS: Ipratropium/Albuterol Sulfate 3 ML AMPUL.NEB INHALATION ×4 (01:52→19:36)
[2023-09-06] MEDS: dexAMETHasone 4 MG/ML Vial IV ×3 (05:46→20:15)
[2023-09-06] MEDS: Aspirin E.C. 81 MG Tablet PO (08:35)
[2023-09-06] MEDS: Potassium Chloride Oral Tablet 20 MEQ PO (08:35)
[2023-09-06] MEDS: Gabapentin 100 MG Capsule 200 MG PO ×3 (08:39→17:44)
[2023-09-06] MEDS: guaiFENesin/D-Methorphan TAB.SR.12H 2 TABLET PO ×2 (08:57→20:16)
--- NOTE | 2023-09-06 09:30 | RAD_ITS ---
STUDY: X-RAY CHEST REASON FOR EXAM: Female, 87 years old. Shortness of breath. TECHNIQUE: AP and lateral views of the chest. COMPARISON: Comparison is made with prior study dated September 03, 2023 FINDINGS: EKG electrodes are seen. Since prior study, there has been progressive infiltrate in the right upper lobe and patchy changes seen in the right upper lobe. Increased markings in the left lower lobe. There is no demonstrated pleural abnormality. Normal size heart. Normal mediastinum and yamilka. Normal visualized pulmonary arteries. There is atherosclerotic tortuosity of the aortic arch and descending thoracic aorta. There are diffuse degenerative changes of the visualized thoracic spine. Degenerative changes of the right shoulder joint. There is no demonstrated abnormality of the visualized soft tissue structures of the upper abdomen. RAD/Chest PA and Lateral IMPRESSION: Progressive right lower lobe infiltrate with increased markings in the right upper lobe and left lower pole. Electronically Signed: Ramos Jolley MD at 13:31 EST ,
--- NOTE | 2023-09-06 09:30 | CASEMGMT ---
TCU received insurance authorization for patient to go to TCU. Plan: [facility] TCU when medically ready. Luisa TEAGUE
[2023-09-06] MEDS: Morphine 2 MG/ML Syringe IV (10:58)
[2023-09-06] MEDS: 0.9% Saline Lock 10 ML Syringe IV ×2 (10:59→11:56)
--- NOTE | 2023-09-06 11:04 | NURSING ---
Addendum entered by Diana See 09/06/23 11:42: Dr Esteves requested pt be put on bipap. Respiratory made aware. Original Note: pt c/o 12/25 generalized pain. VS obtained, noted to be tachypneic, spo2 89-90% on 6L. Placed pt on hiflo cannula at 7L. Spo2 now 92-93%. PRN morphine given. Dr Esteves made aware.
[2023-09-06 11:10] LABS: Absolute Lymphocyte Count 0.35 X10^3/uL (0.83-4.51); Absolute Neutrophil Count 7.2 X10^3/uL (2.0-7.7); Basophil# 0.02 X10^3/uL; Basophil% 0.2 % (0-1); Hematocrit 27.3 % (37-47); Hemoglobin 8.5 g/dL (12.0-15.0); Lymphocyte # 0.35 X10^3/ul (0.83-4.51); Lymphocyte % 4.3 % (19-41); Mean Corp Hgb Conc 31.1 g/dL (32-36); Mean Corpuscular Hgb 31.8 pg (27.0-32.0); Mean Corpuscular Volume 102.2 fL (81-99); Mean Platelet Vol. 10.7 fl (6.2-12.0); Monocyte# 0.53 X10^3/uL; Monocyte% 6.5 % (0-10); NRBC Flagged by Analyzer 0 % (0-5); Neutrophil % 88.4 % (47-70); POSITIVE DIFFERENTIAL YES; POSITIVE MORPHOLOGY YES; Platelet Count 147 K/mm3 (150-450); RBC Distribution Width CV 16.8 % (11.6-14.6); RBC Distribution Width SD 62.6 fl (35.1-43.9); Red Blood Count 2.67 M/mm3 (4.2-5.4); White Blood Count 8.2 K/mm3 (4.4-11.0)
[2023-09-06 11:33] LABS: Differential Indicated SCAN CRITERIA MET
[2023-09-06 11:43] LABS: Anion Gap 8 (5-15); BUN 90 mg/dL (7-18); BUN/Creat Ratio 51.1 RATIO (10-20); Calcium,Total 9.1 mg/dL (8.5-10.1); Chloride 103 mmol/L (98-107); Creatinine, Serum 1.76 mg/dL (0.55-1.02); EST Glomerular Filtration Rate 29 mL/min (>60); Est Glom Filt Rate - Afr Amer 35 mL/min (>60); Estimated Creatinine Clearance 20.88 ml/min; Glucose 427 mg/dL (74-106); Potassium 5.6 mmol/L (3.5-5.1); Sodium Level 137 mmol/L (136-145)
[2023-09-06] MEDS: DULoxetine Hcl 30 MG Capsule PO ×2 (11:50→20:16)
[2023-09-06] MEDS: Furosemide 20 MG/2 ML VIAL IV (11:50)
[2023-09-06] MEDS: Clopidogrel Bisulfate 75 MG Tablet PO (11:54)
--- NOTE | 2023-09-06 13:08 | CPS ---
took patient off bipap, patient could not tolerate it
--- NOTE | 2023-09-06 14:17 | PCM.PN.HOSP ---
Reason for Visit Reason for Visit: Diagnoses Essential (primary) hypertension (09/03/23) Hypertensive heart disease with heart failure (09/03/23) Non-ST elevation (NSTEMI) myocardial infarction (09/03/23) Occlusion and stenosis of bilateral carotid arteries (09/03/23) Shortness of breath (09/03/23) Other specified abnormal findings of blood chemistry (09/03/23) Objective Data Objective Data Vital Signs: Vital Signs Temp Pulse Resp BP Pulse Ox O2 Del Method O2 Flow Rate 97.4 F L 82 24 H 109/38 L 93 Nasal Cannula 8 09/06/23 14:00 09/06/23 14:00 09/06/23 14:00 09/06/23 14:00 09/06/23 14:00 09/06/23 14:00 09/06/23 14:00 FiO2 50 09/06/23 12:37 Oxygen Flow Rate (L/min) 8 Oxygen Delivery Method Nasal Cannula Weight: 146 lb 4.815 oz Body Mass Index (BMI) 26.7 Intake & Output: Intake and Output for Last 24 Hours 09/04/23 09/05/23 09/06/23 23:59 23:59 23:59 Intake Total 120 / 360 1730 / 1970 480 / 480 Output Total 225 / 475 750 / 1150 600 / 600 Balance -105 / -115 980 / 820 -120 / -120 Lab / Micro Data 09/06/23 11:04 09/06/23 11:04 Labs: Laboratory Results - last 24 hr 09/06/23 11:04: WBC 8.2, RBC 2.67 L, Hgb 8.5 L, Hct 27.3 L, MCV 102.2 H, MCH 31.8, MCHC 31.1 L, RDW Std Deviation 62.6 H, RDW Coeff of Ha 16.8 H, Plt Count 147 L, MPV 10.7, Immature Gran % (Auto) 0.600, Neut % (Auto) 88.4 H, Lymph % (Auto) 4.3 L, [place] % (Auto) 6.5, Eos % (Auto) 0.0, Baso % (Auto) 0.2, Absolute Neuts (auto) 7.2, Absolute Lymphs (auto) 0.35 L, Nucleated RBC % 0, Sodium 137, Potassium 5.6 H, Chloride 103, Carbon Dioxide 26.0, Anion Gap 8, BUN 90 H, Creatinine 1.76 H, Estim Creat Clear Calc 20.88, Est GFR (MDRD) Af Amer 35 L, Est GFR (MDRD) Non-Af 29 L, BUN/Creatinine Ratio 51.1 H, Glucose 427 H, Calcium 9.1 Radiography Diagnostic Testing: Radiology Impression Chest X-Ray 09/06/23 09:30 IMPRESSION: Progressive right lower lobe infiltrate with increased markings in the right upper lobe and left lower pole. Electronically Signed: Ramos Jolley MD at 13:31 EST , Rhythm Strip Rhythm Strip: Sinus Rhythm Rate: 95 Physical Exam Narrative Seen and examined. Patient shortness of breath got worse today requiring 9 L of high flow oxygen. Chest x-ray PA and lateral ordered. Patient was admitted for shortness of breath and lumbar back pain with radiation to her right leg suggestive of sciatica pain. Physical exam General: Alert, Oriented x3, Cooperative, mild short of breath. HEENT: Atraumatic, PERRLA, EOMI, Normocephalic Oral: No Gingival or Mucosal Lesions/ Ulcerations Neck: Supple, No JVD, Negative Carotid Bruits Chest wall/Lungs: Air entry diminished in bilateral lung bases. Bilateral rhonchi and coarse crepitations. Dyspnea at rest. Cardiovascular: Regular rate, Regular Rhythm, Normal S1, Normal S2, No M/G/R Abdomen: Bowel Sounds Present, Soft, Non Tender, Non-Distended : No dysuria. No renal angle tenderness. No suprapubic tenderness. Extremities: Mild bilateral lower leg pitting edema, Capillary Refill Less than 3 Seconds Skin: No rashes, No breakdown Musculoskeletal: No Tenderness to Palpation of Joints or Extremities Neurological: Cranial nerves II-XII grossly intact, DTR 2+/4. No acute focal neurological deficit. Psych/Mental Status: Flat affect. Assessment & Plan Assessment/Plan (1) Heart failure due to high blood pressure: (2) Non-STEMI (non-ST elevated myocardial infarction): PLAN: Plan 1. Acute myocardial injury probably secondary to hypoxia from exacerbation of COPD: Patient is being admitted in PCU. 2D echo shows EF 70% with no regional wall motion abnormalities therefore does not seem acute [place]. Normal RV systolic function, normal left and right atria. Normal mitral valve, mild TR, PASP 30 mmHg. The patient was evaluated by copy room technician. Advised to continue home medications for chronic HFpEF, Coreg, losartan and spironolactone. Lasix as needed. 2. Acute COPD exacerbation:-patient is on aerosol treatments and is receiving IV Decadron, monitor pulse ox. Continue PT and OT 09/06/2023: Acute hypoxic respiratory failure due to COPD exacerbation and evolving right lower lobe, right upper lobe and left lower lobe multifocal pneumonia: Patient required 8 L of high flow oxygen in the morning. As per the nursing staff, she was also coughing was wet cough, tannish colored expectorate yesterday but not able to bring up any phlegm today. Repeat chest x-ray PA and lateral was done and individually reviewed. It shows evolving right lower lobe infiltrate, right upper lobe and left lower lobe infiltrate consistent with multifocal pneumonia. Started on IV Zosyn to cover for gram-positive, gram-negative and anaerobes. Pneumonia workup ordered. Discussed with the patient's daughter near the bedside. Patient is being managed on scheduled bronchodilator, steroid, Mucinex, incentive spirometry and Pep. BiPAP as needed #3 spinal stenosis with right radicular pain and debility- PT and OT, patient remains on gabapentin, IV Decadron, and narcotics as needed for pain, again she is a poor surgical candidate to have any surgery done at this institution due to her comorbidities. Hospitalist colleague Dr. Chuck Joshua discussed with the patient's son and advised to follow-up in tertiary care to spine surgeon to evaluate for surgery. 09/06: Patient on IV dexamethasone, decreased to 4 mg every 8 hourly #4 hypoxia secondary to COPD and recent COVID-19 infection-patient is still hypoxic on 4 L of oxygen. 5. Hypotension: Patient blood pressure in a.m. was 87/48 and Coreg was held. Later on BP improved to 118/85 and had Lasix, Aldactone and Cozaar which brought down the blood pressure down again 89/35, 90/32. Discussed with the nursing staff, space out all Lasix and Cozaar. Cozaar dose decreased 25 mg daily and switch to the evening time. 09/06: Blood pressure was also borderline but carvedilol dose decreased to 6.25 mg twice daily and Cozaar dose already decreased. 6. BERNARDO and hyperkalemia probably due to diuretic, spironolactone and potassium supplement: Patient on furosemide, potassium supplement and spironolactone which is temporarily held. Her baseline creatinine about 1.2 increased to 1.76. IV fluid low-dose 50 mill per hour for 1 L. Repeat labs tomorrow AM. Laboratory Results 09/06/23 11:04: WBC 8.2, RBC 2.67 L, Hgb 8.5 L, Hct 27.3 L, MCV 102.2 H, MCH 31.8, MCHC 31.1 L, RDW Std Deviation 62.6 H, RDW Coeff of Ha 16.8 H, Plt Count 147 L, MPV 10.7, Immature Gran % (Auto) 0.600, Neut % (Auto) 88.4 H, Lymph % (Auto) 4.3 L, [place] % (Auto) 6.5, Eos % (Auto) 0.0, Baso % (Auto) 0.2, Absolute Neuts (auto) 7.2, Absolute Lymphs (auto) 0.35 L, Nucleated RBC % 0 Sodium 137, Potassium 5.6 H, Chloride 103, Carbon Dioxide 26.0, Anion Gap 8, BUN 90 H, Creatinine 1.76 H, Estim Creat Clear Calc 20.88, Est GFR (MDRD) Af Amer 35 L, Est GFR (MDRD) Non-Af 29 L, BUN/Creatinine Ratio 51.1 H, Glucose 427 H, Calcium 9.1 Charges/Coding Visit Charges Inpatient E&M: 11899 Subs Hosp L2
[2023-09-06] MEDS: Piperacil/Tazobactam 3.375 GM in 0.9% Normal Saline (50mL MB+) 50 ML IV ×2 (15:33→20:16)
[2023-09-06] MEDS: 0.9% Normal Saline (1000mL) 1,000 ML 75 ML IV (15:33)
[2023-09-06] MEDS: Insulin Lispro 100 UNIT/ML INSULN.PEN SC ×2 (16:45→20:14)
[2023-09-06] MEDS: Insulin Glargine-YFGN 100 UNIT/ML Pen 15 UNIT SC (16:47)
[2023-09-06 16:50] LABS: Bedside Glucose 273 mg/dL (74-106)
[2023-09-06] MEDS: Carvedilol 6.25 MG Tablet PO (17:44)
[2023-09-06 19:26] LABS: M R Staph aureus DNA By PCR Negative (Negative); Probe Check PASS; Specimen Processing Control PASS
[2023-09-06] MEDS: Pramipexole Di-HCl 0.5 MG Tablet 1.5 MG PO (20:15)
[2023-09-06] MEDS: Senna/Docusate Sodium 1 Tablet 2 TABLET PO (20:16)
[2023-09-06] MEDS: Atorvastatin Calcium 40 MG Tablet PO (20:16)
[2023-09-06 20:21] LABS: Bedside Glucose 241 mg/dL (74-106)
--- NOTE | 2023-09-06 20:54 | PCM.HOSP.N ---
Hospitalist Note Patient with continued increased oxygen requirements with influenza A. Encouraged strongly BIPAP but has continued to refuse. Will trial airvo/CPAP, ABG also requested.
[2023-09-06 21:22] LABS: Allen Test Positive; Base Excess 1 mmol/L (-2 to +2); Bicarbonate 26.8 mmol/L (22-26); Blood Gas Specimen Type ART; Mode Not entered; O2 Delivery Device Cannula; PO2 69 mmHG (75-100); SITE R Radial; SO2 92 % (95-99); Total Carbon Dioxide 28 mmol/L; pCO2 51.2 mmHg (35-45); pH 7.33 (7.35-7.45)
[2023-09-06] MEDS: LORazepam 2 MG/ML Syringe 0.5 MG IV (22:47)
[2023-09-07] VITALS (24 sets, daily range): BP systolic 99–138; BP diastolic 36–61; PULSE 64–88; RESP 12–28; TEMP 36.5–36.9; O2SAT 92–99
[2023-09-07] MEDS: Piperacil/Tazobactam 3.375 GM in 0.9% Normal Saline (50mL MB+) 50 ML IV ×3 (04:16→23:09)
[2023-09-07] MEDS: LORazepam 2 MG/ML Syringe 0.5 MG IV (04:17)
[2023-09-07 04:55] LABS: Absolute Lymphocyte Count 0.43 X10^3/uL (0.83-4.51); Absolute Neutrophil Count 5.8 X10^3/uL (2.0-7.7); Basophil# 0.01 X10^3/uL; Basophil% 0.1 % (0-1); Hematocrit 25.1 % (37-47); Hemoglobin 7.8 g/dL (12.0-15.0); Lymphocyte # 0.43 X10^3/ul (0.83-4.51); Lymphocyte % 6.4 % (19-41); Mean Corp Hgb Conc 31.1 g/dL (32-36); Mean Corpuscular Hgb 31.8 pg (27.0-32.0); Mean Corpuscular Volume 102.4 fL (81-99); Mean Platelet Vol. 10.7 fl (6.2-12.0); Monocyte# 0.53 X10^3/uL; Monocyte% 7.8 % (0-10); NRBC Flagged by Analyzer 0.4 % (0-5); Neutrophil # 5.75 X10^3/uL (2.7-7.7); Neutrophil % 85.1 % (47-70); POSITIVE DIFFERENTIAL YES; POSITIVE MORPHOLOGY YES; Platelet Count 132 K/mm3 (150-450); RBC Distribution Width CV 16.7 % (11.6-14.6); RBC Distribution Width SD 62.7 fl (35.1-43.9); Red Blood Count 2.45 M/mm3 (4.2-5.4); White Blood Count 6.8 K/mm3 (4.4-11.0)
[2023-09-07 04:56] LABS: Differential Indicated SCAN CRITERIA MET
[2023-09-07 05:28] LABS: Anion Gap 3 (5-15); BUN 90 mg/dL (7-18); Calcium,Total 8.7 mg/dL (8.5-10.1); Chloride 107 mmol/L (98-107); EST Glomerular Filtration Rate 35 mL/min (>60); Est Glom Filt Rate - Afr Amer 42 mL/min (>60); Glucose 178 mg/dL (74-106); Sodium Level 138 mmol/L (136-145)
--- NOTE | 2023-09-07 05:28 | NURSING ---
Pts primary rn aware of k of 6.0 at this time.
[2023-09-07 05:33] LABS: Differential Comment SCANNED
[2023-09-07 06:37] LABS: Bedside Glucose 158 mg/dL (74-106)
[2023-09-07] MEDS: Ipratropium/Albuterol Sulfate 3 ML AMPUL.NEB INHALATION ×3 (06:51→20:00)
--- NOTE | 2023-09-07 09:15 | PN.HOSP_ITS ---
Reason for Visit Reason for Visit: Diagnoses Essential (primary) hypertension (09/03/23) Hypertensive heart disease with heart failure (09/03/23) Non-ST elevation (NSTEMI) myocardial infarction (09/03/23) Occlusion and stenosis of bilateral carotid arteries (09/03/23) Shortness of breath (09/03/23) Other specified abnormal findings of blood chemistry (09/03/23) Objective Data Objective Data Vital Signs: Vital Signs Temp Pulse Resp BP Pulse Ox O2 Del Method O2 Flow Rate 97.9 F 75 18 113/41 L 98 High Flow 6 09/07/23 06:00 09/07/23 06:51 09/07/23 06:51 09/07/23 06:00 09/07/23 08:15 09/07/23 06:51 09/07/23 06:51 FiO2 50 09/07/23 04:44 Oxygen Flow Rate (L/min) 6 Oxygen Delivery Method High Flow Weight: 146 lb 4.815 oz Body Mass Index (BMI) 26.7 Intake & Output: Intake and Output for Last 24 Hours 09/05/23 09/06/23 09/07/23 23:59 23:59 23:59 Intake Total 1730 / 1970 1010 / 1010 1100 / 1100 Output Total 750 / 1150 1100 / 1100 1500 / 1500 Balance 980 / 820 -90 / -90 -400 / -400 Lab / Micro Data 09/07/23 04:05 09/07/23 04:05 Labs: Laboratory Results - last 24 hr 09/06/23 11:04: WBC 8.2, RBC 2.67 L, Hgb 8.5 L, Hct 27.3 L, MCV 102.2 H, MCH 31.8, MCHC 31.1 L, RDW Std Deviation 62.6 H, RDW Coeff of Ha 16.8 H, Plt Count 147 L, MPV 10.7, Immature Gran % (Auto) 0.600, Neut % (Auto) 88.4 H, Lymph % (Auto) 4.3 L, [place] % (Auto) 6.5, Eos % (Auto) 0.0, Baso % (Auto) 0.2, Absolute Neuts (auto) 7.2, Absolute Lymphs (auto) 0.35 L, Nucleated RBC % 0, Sodium 137, Potassium 5.6 H, Chloride 103, Carbon Dioxide 26.0, Anion Gap 8, BUN 90 H, Creatinine 1.76 H, Estim Creat Clear Calc 20.88, Est GFR (MDRD) Af Amer 35 L, Est GFR (MDRD) Non-Af 29 L, BUN/Creatinine Ratio 51.1 H, Glucose 427 H, Calcium 9.1 09/06/23 16:07: POC Glucose 273 H 09/06/23 17:50: MRSA (PCR) Negative 09/06/23 20:02: POC Glucose 241 H 09/07/23 04:05: WBC 6.8, RBC 2.45 L, Hgb 7.8 L, Hct 25.1 L, MCV 102.4 H, MCH 31.8, MCHC 31.1 L, RDW Std Deviation 62.7 H, RDW Coeff of Ha 16.7 H, Plt Count 132 L, MPV 10.7, Immature Gran % (Auto) 0.600, Neut % (Auto) 85.1 H, Lymph % (Auto) 6.4 L, [place] % (Auto) 7.8, Eos % (Auto) 0.0, Baso % (Auto) 0.1, Absolute Neuts (auto) 5.8, Absolute Lymphs (auto) 0.43 L, Nucleated RBC % 0.4, Dif ferential Comment SCANNED, Sodium 138, Potassium 6.0 H*, Chloride 107, Carbon Dioxide 28.0, Anion Gap 3 L, BUN 90 H, Creatinine 1.50 H, Estim Creat Clear Calc 24.50, Est GFR (MDRD) Af Amer 42 L, Est GFR (MDRD) Non-Af 35 L, BUN/Creatinine Ratio 60.0 H, Glucose 178 H, Calcium 8.7 09/07/23 06:03: POC Glucose 158 H Micro: Microbiology 09/06/23 15:50 Mucosa - Nose Respiratory Panel (PCR) - Final Influenza A (Subtype H3) ABG Data ABG results: ABG 09/06/23 21:19 Specimen Type ART Sample Site R Radial pH 7.33 L Bicarbonate Actual 26.8 H Total CO2 28 Base Excess 1 O2 Saturation 92 L O2 % 7.0 ABG pCO2 51.2 H ABG pO2 69 L Mj Test Positive O2 Delivery Device Cannula Vent Mode Not entered Radiography Diagnostic Testing: Radiology Impression Chest X-Ray 09/06/23 09:30 IMPRESSION: Progressive right lower lobe infiltrate with increased markings in the right upper lobe and left lower pole. Electronically Signed: Ramos Jolley MD at 13:31 EST , Rhythm Strip Rhythm Strip: Sinus Rhythm Rate: 95 Physical Exam Narrative Seen and examined. Patient was short of breath last night.ABG was done. Patient put on BiPAP. Influenza A came positive. Patient was admitted for shortness of breath and lumbar back pain with radiation to her right leg suggestive of sciatica pain. Physical exam General: Confused and disoriented probably due to Ativan. HEENT: Atraumatic, PERRLA, EOMI, Normocephalic Oral: On BiPAP. Neck: Supple, No JVD, Negative Carotid Bruits Chest wall/Lungs: Air entry diminished in bilateral lung bases. Bilateral rhonchi and coarse crepitations. Dyspnea at rest. Cardiovascular: Regular rate, Regular Rhythm, Normal S1, Normal S2, No M/G/R Abdomen: Bowel Sounds Present, Soft, Non Tender, Non-Distended : No dysuria. No renal angle tenderness. No suprapubic tenderness. Extremities: Mild bilateral lower leg pitting edema, Capillary Refill Less than 3 Seconds Skin: No rashes, No breakdown Musculoskeletal: No Tenderness to Palpation of Joints or Extremities Neurological: Cranial nerves II-XII grossly intact, DTR 2+/4. No acute focal neurological deficit. Psych/Mental Status: Flat affect. Assessment & Plan Assessment/Plan (1) Heart failure due to high blood pressure: (2) Non-STEMI (non-ST elevated myocardial infarction): PLAN: Plan 1. Acute myocardial injury probably secondary to hypoxia from exacerbation of COPD: Patient is being admitted in PCU. 2D echo shows EF 70% with no regional wall motion abnormalities therefore does not seem acute [place]. Normal RV systolic function, normal left and right atria. Normal mitral valve, mild TR, PASP 30 mmHg. The patient was evaluated by planning coordinator. Advised to continue home medications for chronic HFpEF, Coreg, losartan and spironolactone. Lasix as ne eded. 2. Acute hypoxic and hypercarbic combined respiratory failure due to acute COPD exacerbation due to multifocal pneumonia from influenza A. Early bacterial secondary infection:-patient is on aerosol treatments and is receiving IV Decadron, monitor pulse ox. Continue PT and OT 09/06/2023: Acute hypoxic respiratory failure due to COPD exacerbation and evolving right lower lobe, right upper lobe and left lower lobe multifocal pneumonia: Patient required 8 L of high flow oxygen in the morning. As per the nursing staff, she was also coughing was wet, tannish colored expectorate yesterday but not able to bring up any phlegm today. Repeat chest x-ray PA and lateral was done and individually reviewed. It shows evolving right lower lobe infiltrate, right upper lobe and left lower lobe infiltrate consistent with multifocal pneumonia. Started on IV Zosyn to cover for gram-positive, gram- negative and anaerobes. Pneumonia workup ordered. Discussed with the patient's daughter near the bedside. Patient is being managed on scheduled bronchodilator, steroid, Mucinex, incentive spirometry and Pep. BiPAP as needed 09/07: Patient got short of breath yesterday and continued overnight with increased oxygen requirement. ABG showed pH 7.33/pCO2 51/O2 69 seems on 7 L of oxygen. Patient was given Ativan 0.5 mg so that she can tolerate BiPAP. Influenza A, subtype H3 positive. Started on Tamiflu. Low-dose mirtazapine ordered from night. #3 spinal stenosis with right radicular pain and debility- PT and OT, patient remains on gabapentin, IV Decadron, and narcotics as needed for pain, again she is a poor surgical candidate to have any surgery done at this institution due to her comorbidities. Hospitalist colleague Dr. Chuck Joshua discussed with the patient 's son and advised to follow-up in tertiary care to spine surgeon to evaluate for surgery. 09/06: Patient on IV dexamethasone, decreased to 4 mg every 8 hourly 5. Hypotension: Patient blood pressure in a.m. was 87/48 and Coreg was held. Later on BP improved to 118/85 and had Lasix, Aldactone and Cozaar which brought down the blood pressure down again 89/35, 90/32. Discussed with the nursing sta ff, space out all Lasix and Cozaar. Cozaar dose decreased 25 mg daily and switch to the evening time. 09/06: Blood pressure was also borderline but carvedilol dose decreased to 6.25 mg twice daily and Cozaar dose already decreased. 6. BERNARDO and hyperkalemia probably due to diuretic, spironolactone and potassium supplement: Patient on furosemide, potassium supplement and spironolactone which is temporarily held. Her baseline creatinine about 1.2 increased to 1.76. IV fluid low-dose 50 mill per hour for 1 L. Repeat labs tomorrow AM. 09/07: Creatinine seems better creatinine 1.5 BUN 90. Serum potassium 6.0. Repeat BMP ordered and pending. Laboratory Results 09/06/23 11:04: WBC 8.2, RBC 2.67 L, Hgb 8.5 L, Hct 27.3 L, MCV 102.2 H, MCH 31.8, MCHC 31.1 L, RDW Std Deviation 62.6 H, RDW Coeff of Ha 16.8 H, Plt Count 147 L, MPV 10.7, Immature Gran % (Auto) 0.600, Neut % (Auto) 88.4 H, Lymph % (Auto) 4.3 L, [place] % (Auto) 6.5, Eos % (Auto) 0.0, Baso % (Auto) 0.2, Absolute Neuts (auto) 7.2, Absolute Lymphs (auto) 0.35 L, Nucleated RBC % 0 Sodium 137, Potassium 5.6 H, Chloride 103, Carbon Dioxide 26.0, Anion Gap 8, BUN 90 H, Creatinine 1.76 H, Estim Creat Clear Calc 20.88, Est GFR (MDRD) Af Amer 35 L, Est GFR (MDRD) Non-Af 29 L, BUN/Creatinine Ratio 51.1 H, Glucose 427 H, Calcium 9.1 09/07/23 04:05: WBC 6.8, RBC 2.45 L, Hgb 7.8 L, Hct 25.1 L, MCV 102.4 H, MCH 31.8, MCHC 31.1 L, RDW Std Deviation 62.7 H, RDW Coeff of Ha 16.7 H, Plt Count 132 L, MPV 10.7, Immature Gran % (Auto) 0.600, Neut % (Auto) 85.1 H, Lymph % (Auto) 6.4 L, [place] % (Auto) 7.8, Eos % (Auto) 0.0, Baso % (Auto) 0.1, Absolute Neuts (auto) 5.8, Absolute Lymphs (auto) 0.43 L, Nucleated RBC % 0.4, Differential Comment SCANNED, Sodium 138, Potassium 6.0 H*, Chloride 107, Carbon Dioxide 28.0, Anion Gap 3 L, BUN 90 H, Creatinine 1.50 H, Estim Creat Clear Calc 24.50, Est GFR (MDRD) Af Amer 42 L, Est GFR (MDRD) Non-Af 35 L, BUN/Creatinine Ratio 60.0 H, Glucose 178 H, Calcium 8.7 09/07/23 06:03: POC Glucose 158 H Charges/Coding Addendum Addendum: Total time of the visit including total time spent in counseling or coordination of care, (more than 50% of the total time, spent in obtaining medical information from nurses and other ancillary care providers,explaining to the patient about labs, imaging, diagnosis and management of active complex medical conditions), review of ABG, review of labs and imaging is 45 minutes. Visit Charges Inpatient E&M: 80222 Subs Hosp L3
[2023-09-07] MEDS: Heparin Injection (Vial) 5,000 UNIT/ML VIAL 5000 UNIT SC ×2 (10:02→20:04)
[2023-09-07] MEDS: Calcium Gluconate 1 GM/10 ML Vial 0.5 GM IVP (10:02)
[2023-09-07] MEDS: dexAMETHasone 4 MG/ML Vial IV ×2 (10:02→20:04)
[2023-09-07] MEDS: Insulin Lispro 10 UNIT in Syringe 0 ML 6 UNIT IV (10:03)
[2023-09-07] MEDS: Dextrose 50%-Water 25 GM/50 ML DISP.SYRIN IV (10:05)
[2023-09-07 10:08] LABS: Anion Gap 2 (5-15); BUN 83 mg/dL (7-18); BUN/Creat Ratio 55.3 RATIO (10-20); Chloride 110 mmol/L (98-107); EST Glomerular Filtration Rate 35 mL/min (>60); Est Glom Filt Rate - Afr Amer 42 mL/min (>60); Glucose 157 mg/dL (74-106); Potassium 5.8 mmol/L (3.5-5.1); Sodium Level 139 mmol/L (136-145)
--- NOTE | 2023-09-07 10:18 | CASEMGMT ---
Patient has a Healthcare Power of Regeneration Operator and a Healthcare Living Will on file at [facility]. Patient's daughter Dora is patient's Healthcare Power of Regeneration Operator. Luisa TEAGEU
[2023-09-07 10:48] LABS: Bedside Glucose 150 mg/dL (74-106)
[2023-09-07] MEDS: Albuterol 2.5 MG/3 ML VIAL.NEB. 10 MG INHALATION (11:06)
[2023-09-07] MEDS: Insulin Glargine-YFGN 100 UNIT/ML Pen 15 UNIT SC (11:37)
[2023-09-07 11:58] LABS: Bedside Glucose 192 mg/dL (74-106)
--- NOTE | 2023-09-07 12:06 | PCM.CONS.R ---
Assessment & Plan Assessment/Plan (1) Hyperkalemia: (2) CKD (chronic kidney disease), stage III: (3) Acute hypoxic respiratory failure: PLAN: Plan This is an 87-year-old female with past medical history significant for hypertension, CKD, history of left kidney stone requiring cystoscopy, left ureteroscopy, stent placement and lithotripsy in 2011 who was admitted to the hospital after presenting with complaints of shortness of breath, admitted for acute hypoxic respiratory failure from COPD exacerbation, pneumonia and influenza A. Also noted to have detectable troponin levels. Nephrology consulted in view of elevated creatinine and hyperkalemia. Patient reports she has not been seen by crisis counselor in the past. In reviewing past creatinine trends, patient has had elevated creatinine since 2017, baseline creatinine ranging around 1.5 mg/dL. On admission patient's creatinine was 1.2, it peaked to 1.7 on September 06 and today her creatinine is 1.5. Patient had been on losartan but this was stopped due to hypotension (she has not received any doses over the past few days). Patient was also noted to have elevated potassium level of 5.6 yesterday, her potassium this morning went up to 6.0. This morning patient received dextrose, calcium gluconate, insulin, Kayexalate, albuterol. Potassium supplements have been stopped (last received potassium yesterday), repeat potassium 5.8. Will add low potassium diet restrictions. Will repeat serum potassium later today. Patient is nonoliguric. Patient is on IV antibiotics, IV steroids, she is still requiring oxygen and has been declining Bipap at night. Volume status appears to be compensated. There is no acute indication for renal replacement therapy, CKD is at baseline. Patient had CT abdomen in December 2022 which did not show any hydronephrosis. Will obtain UA. Blood pressures were low but have improved, patient is only on Coreg. Patient was noted to have detectable troponin level. Cardiology consulted, no plan for invasive evaluation at this time. Echo from this admission showed normal left ventricular, left ventricular systolic function normal, EF 70%. Further orders forthcoming as hospitalization evolves, thank you for allowing us to participate in the care of Ms. Rousseau. HPI Consult Data Date of Consult: 09/07/23 HPI Narrative HPI Narrative: DICK ROUSSEAU, is a 87 F with PMH significant for hypertension, COPD, dyslipidemia, chronic kidney disease who was admitted to the hospital on September 03 after presenting to the emergency room with complaints of shortness of breath. She was admitted for exacerbation of COPD, also noted to be influenza positive. Also noted to have elevated troponin levels. Nephrology consulted in view of elevated creatinine and hyperkalemia. Patient is alert and oriented but having difficult time recalling recent events. She states she does not follow with crisis counselor. In reviewing past creatinine trends patient has had elevated creatinine dating back to at least 2016. Creatinine was 1.2 on admission, peaked 1.7 on September 06 and today her creatinine is 1.50. Potassium was 4.8 on admission, early this morning potassium 6.0 after receiving IV medical therapy and Kayexalate patient potassium is now 5.8. [facility] Medical History (Updated 09/07/23 @ 12:17 by Varsha Armstrong NP-C) Bilateral carotid artery stenosis Chronic kidney disease Claudication Diverticulosis Dyslipidemia Essential hypertension History of COPD History of TIA (transient ischemic attack) Leg edema Limb weakness Muscle spasm of left shoulder area Neck and back pain PAD (peripheral artery disease) Renal cyst RLS (restless legs syndrome) Shortness of breath Shoulder pain TIA (transient ischemic attack) Vertigo Home Medications atorvastatin 40 mg tablet 40 mg PO QHS cholesterol 02/22/16 [History Last Taken 09/02/23] clopidogrel 75 mg tablet 75 mg PO DAILY BLOOD THINNER 02/22/16 [History Last Taken 09/02/23] multivitamin with folic acid 400 mcg tablet 1 tab PO DAILY supplement 02/22/16 [History Last Taken 09/02/23] spironolactone 25 mg tablet 25 mg PO DAILY FLUID RETENTION 02/22/16 [History Last Taken 06/19/23] albuterol sulfate 90 mcg/actuation aerosol inhaler 2 puff inhalation BID PRN shortness of breath or wheezing 03/16/18 [History Last Taken 09/02/23] cholecalciferol (vitamin D3) 25 mcg (1,000 unit) tablet 2,500 unit PO DAILY SUPPLEMENT 10/09/18 [History Last Taken 09/02/23] furosemide 40 mg tablet 40 mg PO DAILY FLUID RETENTION #90 tabs 01/27/22 [Rx Last Taken 09/02/23] albuterol sulfate 2.5 mg/3 mL (0.083 %) solution for nebulization 2.5 mg inhalation Q4H PRN shortness of breath or wheezing 05/28/22 [History Last Taken 09/02/23] ipratropium 0.5 mg-albuterol 3 mg (2.5 mg base)/3 mL nebulization soln 3 ml inhalation Q6H PRN shortness of breath 05/28/22 [History Last Taken 09/02/23] budesonide 0.5 mg/2 mL suspension for nebulization 0.25 mg inhalation TID PRN shortness of breath 12/06/22 [History Last Taken 09/02/23] carvedilol 12.5 mg tablet 12.5 mg PO BID CHOLESTEROL #180 tabs 04/27/23 [Rx Last Taken 09/02/23] losartan 50 mg tablet 50 mg PO DAILY BLOOD PRESSURE #90 tabs 08/01/23 [Rx Last Taken 09/02/23] duloxetine 30 mg capsule,delayed release 30 mg PO BID pain 08/17/23 [History Last Taken 09/02/23] pramipexole 1.5 mg tablet 1.5 mg PO QHS restless leg syndrome 08/18/23 [History Last Taken 09/02/23] dexamethasone 6 mg tablet 6 mg PO DAILY #7 tabs 08/20/23 [Rx Last Taken Unknown] diclofenac sodium 1 % topical gel topical 09/03/23 [History Last Taken Unknown] prednisone 10 mg tablet 10 mg PO DAILY 09/03/23 [History Last Taken Unknown] Allergy/AdvReac Type Severity Reaction Status Date / Time lisinopril Allergy edema Verified 09/03/23 09:41 aspirin AdvReac Upset Verified 09/03/23 09:41 Stomach Family History Mother Heart disease Surgical History History of basal cell carcinoma excision History of carotid angioplasty History of kidney stones History of thyroid surgery History of total hysterectomy Social History household members: none housing: house Smoking Status: Former smoker how long ago did patient quit smokin years ago alcohol intake: current alcohol intake frequency: holidays/special occasions only details: rare substance use type: does not use caffeine: Yes Type: coffee Number of servings: 1 ROS ROS Narrative as in HPI and PMH Physical Exam Narrative alert and oriented but drowsy, no apparent distress S1S2 RRR lungs sounds coarse anteriorly but clears with cough and deep breath no pitting edema turner with clear yellow urine in bag Lab / Micro Data 09/07/23 04:05 09/07/23 09:15 Labs: Laboratory Results - last 24 hr 09/06/23 16:07: POC Glucose 273 H 09/06/23 17:50: MRSA (PCR) Negative 09/06/23 20:02: POC Glucose 241 H 09/07/23 04:05: WBC 6.8, RBC 2.45 L, Hgb 7.8 L, Hct 25.1 L, MCV 102.4 H, MCH 31.8, MCHC 31.1 L, RDW Std Deviation 62.7 H, RDW Coeff of Ha 16.7 H, Plt Count 132 L, MPV 10.7, Immature Gran % (Auto) 0.600, Neut % (Auto) 85.1 H, Lymph % (Auto) 6.4 L, [place] % (Auto) 7.8, Eos % (Auto) 0.0, Baso % (Auto) 0.1, Absolute Neuts (auto) 5.8, Absolute Lymphs (auto) 0.43 L, Nucleated RBC % 0.4, Differential Comment SCANNED, Sodium 138, Potassium 6.0 H*, Chloride 107, Carbon Dioxide 28.0, Anion Gap 3 L, BUN 90 H, Creatinine 1.50 H, Estim Creat Clear Calc 24.50, Est GFR (MDRD) Af Amer 42 L, Est GFR (MDRD) Non-Af 35 L, BUN/Creatinine Ratio 60.0 H, Glucose 178 H, Calcium 8.7 09/07/23 06:03: POC Glucose 158 H 09/07/23 09:15: Sodium 139, Potassium 5.8 H, Chloride 110 H, Carbon Dioxide 27.0, Anion Gap 2 L, BUN 83 H, Creatinine 1.50 H, Estim Creat Clear Calc 24.50, Est GFR (MDRD) Af Amer 42 L, Est GFR (MDRD) Non-Af 35 L, BUN/Creatinine Ratio 55.3 H, Glucose 157 H, Calcium 9.0 09/07/23 10:12: POC Glucose 150 H 09/07/23 11:35: POC Glucose 192 H Micro: Microbiology 09/06/23 15:50 Mucosa - Nose Respiratory Panel (PCR) - Final Influenza A (Subtype H3) ABG Data ABG results: ABG 09/06/23 21:19 Specimen Type ART Sample Site R Radial pH 7.33 L Bicarbonate Actual 26.8 H Total CO2 28 Base Excess 1 O2 Saturation 92 L O2 % 7.0 ABG pCO2 51.2 H ABG pO2 69 L Mj Test Positive O2 Delivery Device Cannula Vent Mode Not entered Rhythm Strip Rhythm Strip: Sinus Rhythm Rate: 95 Imaging Radiology Impression Chest X-Ray 09/06/23 09:30 IMPRESSION: Progressive right lower lobe infiltrate with increased markings in the right upper lobe and left lower pole. Electronically Signed: Ramos Jolley MD at 13:31 EST ,
[2023-09-07] MEDS: guaiFENesin/D-Methorphan TAB.SR.12H 2 TABLET PO ×2 (14:05→20:05)
[2023-09-07] MEDS: Senna/Docusate Sodium 1 Tablet 2 TABLET PO ×2 (14:06→20:05)
[2023-09-07] MEDS: DULoxetine Hcl 30 MG Capsule PO ×2 (14:06→20:05)
[2023-09-07] MEDS: Polyethylene Glycol 3350 17 GM PACKET PO (14:06)
[2023-09-07] MEDS: Clopidogrel Bisulfate 75 MG Tablet PO (14:06)
[2023-09-07] MEDS: Aspirin E.C. 81 MG Tablet PO (14:06)
[2023-09-07] MEDS: Oseltamivir Phosphate 30 MG Capsule PO (14:20)
--- NOTE | 2023-09-07 14:24 | CPS ---
patient too sleepy at this time to complete PEP
[2023-09-07] MEDS: Sodium Polystyrene Sulfonate 15 GM/60 ML UDC PO (14:29)
[2023-09-07 15:58] LABS: Potassium 5.5 mmol/L (3.5-5.1)
[2023-09-07] MEDS: Gabapentin 100 MG Capsule 200 MG PO (18:16)
[2023-09-07] MEDS: Carvedilol 6.25 MG Tablet PO (18:23)
[2023-09-07] MEDS: Insulin Lispro 100 UNIT/ML INSULN.PEN SC ×2 (18:29→20:04)
[2023-09-07 18:39] LABS: Bacteria 0 SEEN /hpf (None Seen); Color, Urine Yellow (Yellow); Glucose, Dipstick Normal (Normal); Ketone-Dipstick Negative (Negative); Leukocyte Esterase-Dipstick 25 /ul (Negative); Mucous, Urine 0 SEEN /hpf (<or=2+); Nitrite-Dipstick Negative (Negative); Occult Blood-Urine 25 /ul (Negative); Protein-Dipstick 30 mg/dl (Negative); Specific Gravity, Urine 1.015 (1.002-1.030); Squamous Epithelial Cells - UA 0 SEEN /hpf (5-10); Urine Bilirubin Dipstick Negative (Negative); Urine Clarity Clear (Clear); Urine Urobilinogen Normal (Normal)
[2023-09-07 18:44] LABS: Red Blood Cells-Urine 5-10 SEEN /hpf (0-5); White Blood Cells 0 SEEN /hpf (0-5)
[2023-09-07 18:49] LABS: Bedside Glucose 197 mg/dL (74-106)
[2023-09-07] MEDS: Pramipexole Di-HCl 0.5 MG Tablet 1.5 MG PO (20:05)
[2023-09-07] MEDS: Atorvastatin Calcium 40 MG Tablet PO (20:05)
[2023-09-07] MEDS: Mirtazapine 15 MG Tablet PO (20:05)
[2023-09-07 20:52] LABS: Bedside Glucose 172 mg/dL (74-106)
[2023-09-08] VITALS (26 sets, daily range): BP systolic 90–145; BP diastolic 41–64; PULSE 80–110; RESP 12–34; TEMP 36.7–36.9; O2SAT 87–100
[2023-09-08] MEDS: Ipratropium/Albuterol Sulfate 3 ML AMPUL.NEB INHALATION ×4 (02:05→19:08)
[2023-09-08] MEDS: Piperacil/Tazobactam 3.375 GM in 0.9% Normal Saline (50mL MB+) 50 ML IV ×3 (06:01→20:15)
[2023-09-08] MEDS: Insulin Lispro 100 UNIT/ML INSULN.PEN SC ×3 (06:02→20:14)
[2023-09-08 06:04] LABS: Bedside Glucose 182 mg/dL (74-106)
[2023-09-08 06:39] LABS: Absolute Lymphocyte Count 0.44 X10^3/uL (0.83-4.51); Absolute Neutrophil Count 6.3 X10^3/uL (2.0-7.7); Basophil# 0.02 X10^3/uL; Basophil% 0.3 % (0-1); Hematocrit 24.2 % (37-47); Hemoglobin 7.5 g/dL (12.0-15.0); Lymphocyte # 0.44 X10^3/ul (0.83-4.51); Lymphocyte % 6.1 % (19-41); Mean Corpuscular Hgb 31.4 pg (27.0-32.0); Mean Corpuscular Volume 101.3 fL (81-99); Mean Platelet Vol. 10.3 fl (6.2-12.0); Monocyte# 0.32 X10^3/uL; Monocyte% 4.4 % (0-10); NRBC Flagged by Analyzer 0.3 % (0-5); Neutrophil # 6.32 X10^3/uL (2.7-7.7); POSITIVE DIFFERENTIAL YES; POSITIVE MORPHOLOGY YES; Platelet Count 120 K/mm3 (150-450); RBC Distribution Width CV 16.8 % (11.6-14.6); RBC Distribution Width SD 61.3 fl (35.1-43.9); Red Blood Count 2.39 M/mm3 (4.2-5.4); White Blood Count 7.3 K/mm3 (4.4-11.0)
[2023-09-08 06:45] LABS: Differential Indicated SCAN CRITERIA MET
[2023-09-08 06:58] LABS: Anion Gap 2 (5-15); BUN 68 mg/dL (7-18); BUN/Creat Ratio 51.9 RATIO (10-20); Calcium,Total 9.2 mg/dL (8.5-10.1); Chloride 110 mmol/L (98-107); Creatinine, Serum 1.31 mg/dL (0.55-1.02); EST Glomerular Filtration Rate 41 mL/min (>60); Est Glom Filt Rate - Afr Amer 50 mL/min (>60); Estimated Creatinine Clearance 28.06 ml/min; Glucose 180 mg/dL (74-106); Potassium 5.4 mmol/L (3.5-5.1); Sodium Level 141 mmol/L (136-145)
[2023-09-08 07:15] LABS: Differential Comment SCANNED; Microcytosis 3+
[2023-09-08] MEDS: Carvedilol 6.25 MG Tablet PO (08:28)
[2023-09-08] MEDS: Gabapentin 100 MG Capsule 200 MG PO ×2 (08:28→11:37)
[2023-09-08] MEDS: Aspirin E.C. 81 MG Tablet PO (08:30)
[2023-09-08] MEDS: 0.9% Saline Lock 10 ML Syringe IV ×2 (08:40→10:07)
[2023-09-08] MEDS: guaiFENesin/D-Methorphan TAB.SR.12H 2 TABLET PO ×2 (10:04→20:15)
[2023-09-08] MEDS: Clopidogrel Bisulfate 75 MG Tablet PO (10:04)
[2023-09-08] MEDS: Oseltamivir Phosphate 30 MG Capsule PO (10:04)
[2023-09-08] MEDS: DULoxetine Hcl 30 MG Capsule PO ×2 (10:04→20:15)
[2023-09-08] MEDS: Polyethylene Glycol 3350 17 GM PACKET PO (10:05)
[2023-09-08] MEDS: Senna/Docusate Sodium 1 Tablet 2 TABLET PO ×2 (10:05→20:15)
[2023-09-08] MEDS: dexAMETHasone 4 MG/ML Vial IV ×2 (10:06→20:15)
[2023-09-08] MEDS: Heparin Injection (Vial) 5,000 UNIT/ML VIAL 5000 UNIT SC (10:09)
[2023-09-08] MEDS: Insulin Glargine-YFGN 100 UNIT/ML Pen 15 UNIT SC (10:10)
--- NOTE | 2023-09-08 10:22 | CASEMGMT ---
Patient's pre-cert has . Physician asked that SW have pre-cert re-started. SW let Gretta in TCU know this information. Plan: [facility] TCU pending insurance approval. Luisa TEAGUE
--- NOTE | 2023-09-08 11:19 | PCM.PN.REN ---
Subjective Subjective Sitting in chair. No overnight events. Reports feeling much better today and breathing is better today. Objective Data Objective Data Vital Signs: Vital Signs Temp Pulse Resp BP Pulse Ox O2 Del Method O2 Flow Rate 98.0 F 93 20 H 106/45 L 93 Nasal Cannula 4 09/08/23 10:00 09/08/23 10:00 09/08/23 10:00 09/08/23 10:00 09/08/23 11:13 09/08/23 11:13 09/08/23 11:13 FiO2 40 09/08/23 02:05 Oxygen Flow Rate (L/min) 4 Oxygen Delivery Method Nasal Cannula Weight: 66.361 kg Body Mass Index (BMI) 26.7 Intake & Output: Intake and Output for Last 24 Hours 09/06/23 09/07/23 09/08/23 23:59 23:59 23:59 Intake Total 1010 / 1010 1390 / 1630 530 / 530 Output Total 1100 / 1100 2500 / 3000 900 / 900 Balance -90 / -90 -1110 / -1370 -370 / -370 Lab / Micro Data 09/08/23 06:30 09/08/23 06:30 Labs: Laboratory Results - last 24 hr 09/07/23 11:35: POC Glucose 192 H 09/07/23 15:30: Potassium 5.5 H 09/07/23 18:20: Urine Color Yellow, Urine Clarity Clear, Urine pH 6.0, Ur Specific [place] 1.015, Urine Protein 30 H, Urine Glucose (UA) Normal, Urine Ketones Negative, Urine Occult Blood 25 H, Urine Nitrite Negative, Urine Bilirubin Negative, Urine Urobilinogen Normal, Ur Leukocyte Esterase 25 H, Urine RBC 5-10 SEEN, Urine WBC 0 SEEN, Ur Squamous Epith Cells 0 SEEN, Urine Bacteria 0 SEEN, Urine Mucus 0 SEEN 09/07/23 18:27: POC Glucose 197 H 09/07/23 19:59: POC Glucose 172 H 09/08/23 05:47: POC Glucose 182 H 09/08/23 06:30: WBC 7.3, RBC 2.39 L, Hgb 7.5 L, Hct 24.2 L, MCV 101.3 H, MCH 31.4, MCHC 31.0 L, RDW Std Deviation 61.3 H, RDW Coeff of Ha 16.8 H, Plt Count 120 L, MPV 10.3, Immature Gran % (Auto) 2.200 H, Neut % (Auto) 87.0 H, Lymph % (Auto) 6.1 L, [place] % (Auto) 4.4, Eos % (Auto) 0.0, Baso % (Auto) 0.3, Absolute Neuts (auto) 6.3, Absolute Lymphs (auto) 0.44 L, Nucleated RBC % 0.3, Differential Comment SCANNED, Microcytosis 3+, Sodium 141, Potassium 5.4 H, Chloride 110 H, Carbon Dioxide 29.0, Anion Gap 2 L, BUN 68 H, Creatinine 1.31 H, Estim Creat Clear Calc 28.06, Est GFR (MDRD) Af Amer 50 L, Est GFR (MDRD) Non-Af 41 L, BUN/Creatinine Ratio 51.9 H, Glucose 180 H, Calcium 9.2 Micro: Microbiology 09/07/23 18:20 Urine Catheter - [place] Legionella Antigen - Final 09/07/23 18:20 Urine Catheter - [place] Streptococcus pneumoniae Antigen (M - Final 09/06/23 15:50 Mucosa - Nose Respiratory Panel (PCR) - Final Influenza A (Subtype H3) Rhythm Strip Rhythm Strip: Sinus Rhythm Rate: 95 Physical Exam Narrative alert and oriented x 3 S1S2 RRR lungs sounds coarse anteriorly no pitting edema Abdomen soft, nontender turner with clear yellow urine in bag Assessment & Plan Assessment/Plan (1) Hyperkalemia: (2) CKD (chronic kidney disease), stage III: (3) Acute hypoxic respiratory failure: PLAN: Plan This is an 87-year-old female with past medical history significant for hypertension, CKD, history of left kidney stone requiring cystoscopy, left ureteroscopy, stent placement and lithotripsy in 2011 who was admitted to the hospital after presenting with complaints of shortness of breath, admitted for acute hypoxic respiratory failure from COPD exacerbation, pneumonia and influenza A. Also noted to have detectable troponin levels. Nephrology consulted in view of elevated creatinine and hyperkalemia. - CKD stage III; past creatinine trends, patient has had elevated creatinine since 2017, baseline creatinine ranging around 1.5 mg/dL. On admission patient's creatinine was 1.2, it peaked to 1.7 on September 06 and today her creatinine is 1.31. Patient had been on losartan but this was stopped due to hypotension (she has not received any doses over the past few days). Patient was also noted to have elevated potassium level of 5.6 --> peaked 6.0 (received dextrose, calcium gluconate, insulin, Kayexalate, albuterol) and started low K+ diet--> K+ 5.4 today. Potassium supplement and aldactone have been stopped. UA protein 30, 25 occult blood but patient has turner. Patient had CT abdomen in December 2022 which did not show any hydronephrosis - Pneumonia, influenza; on IV antibiotics, IV steroids, tamiful and breathing treatments. she is still requiring oxygen and wore high flow O2/ Bipap at night. Volume status appears to be compensated. - Blood pressures were low but have improved, patient is only on Coreg. - detectable troponin level. Cardiology consulted, no plan for invasive evaluation at this time. Echo from this admission showed normal left ventricular, left ventricular systolic function normal, EF 70%.
[2023-09-08 11:57] LABS: Bedside Glucose 200 mg/dL (74-106)
--- NOTE | 2023-09-08 12:03 | PN.HOSP_ITS ---
Reason for Visit Reason for Visit: Diagnoses Hyperkalemia (09/03/23) Essential (primary) hypertension (09/03/23) Hypertensive heart disease with heart failure (09/03/23) Non-ST elevation (NSTEMI) myocardial infarction (09/03/23) Occlusion and stenosis of bilateral carotid arteries (09/03/23) Acute respiratory failure with hypoxia (09/03/23) Chronic kidney disease, stage 3 unspecified (09/03/23) Shortness of breath (09/03/23) Other specified abnormal findings of blood chemistry (09/03/23) Objective Data Objective Data Vital Signs: Vital Signs Temp Pulse Resp BP Pulse Ox O2 Del Method O2 Flow Rate 98.0 F 93 20 H 106/45 L 96 Nasal Cannula 4 09/08/23 10:00 09/08/23 10:00 09/08/23 10:00 09/08/23 10:00 09/08/23 11:36 09/08/23 11:36 09/08/23 11:36 FiO2 40 09/08/23 02:05 Oxygen Flow Rate (L/min) 4 Oxygen Delivery Method Nasal Cannula Weight: 146 lb 4.815 oz Body Mass Index (BMI) 26.7 Intake & Output: Intake and Output for Last 24 Hours 09/06/23 09/07/23 09/08/23 23:59 23:59 23:59 Intake Total 1010 / 1010 1390 / 1630 580 / 580 Output Total 1100 / 1100 2500 / 3000 900 / 900 Balance -90 / -90 -1110 / -1370 -320 / -320 Lab / Micro Data 09/08/23 06:30 09/08/23 06:30 Labs: Laboratory Results - last 24 hr 09/07/23 15:30: Potassium 5.5 H 09/07/23 18:20: Urine Color Yellow, Urine Clarity Clear, Urine pH 6.0, Ur Specific [place] 1.015, Urine Protein 30 H, Urine Glucose (UA) Normal, Urine Ketones Negative, Urine Occult Blood 25 H, Urine Nitrite Negative, Urine Bilirubin Negative, Urine Urobilinogen Normal, Ur Leukocyte Esterase 25 H, Urine RBC 5-10 SEEN, Urine WBC 0 SEEN, Ur Squamous Epith Cells 0 SEEN, Urine Bacteria 0 SEEN, Urine Mucus 0 SEEN 09/07/23 18:27: POC Glucose 197 H 09/07/23 19:59: POC Glucose 172 H 09/08/23 05:47: POC Glucose 182 H 09/08/23 06:30: WBC 7.3, RBC 2.39 L, Hgb 7.5 L, Hct 24.2 L, MCV 101.3 H, MCH 31.4, MCHC 31.0 L, RDW Std Deviation 61.3 H, RDW Coeff of Ha 16.8 H, Plt Count 120 L, MPV 10.3, Immature Gran % (Auto) 2.200 H, Neut % (Auto) 87.0 H, Lymph % (Auto) 6.1 L, [place] % (Auto) 4.4, Eos % (Auto) 0.0, Baso % (Auto) 0.3, Absolute Neuts (auto) 6.3, Absolute Lymphs (auto) 0.44 L, Nucleated RBC % 0.3, Differe ntial Comment SCANNED, Microcytosis 3+, Sodium 141, Potassium 5.4 H, Chloride 110 H, Carbon Dioxide 29.0, Anion Gap 2 L, BUN 68 H, Creatinine 1.31 H, Estim Creat Clear Calc 28.06, Est GFR (MDRD) Af Amer 50 L, Est GFR (MDRD) Non-Af 41 L, BUN/Creatinine Ratio 51.9 H, Glucose 180 H, Calcium 9.2 09/08/23 11:34: POC Glucose 200 H Micro: Microbiology 09/07/23 18:20 Urine Catheter - [place] Legionella Antigen - Final 09/07/23 18:20 Urine Catheter - [place] Streptococcus pneumoniae Antigen (M - Final 09/06/23 15:50 Mucosa - Nose Respiratory Panel (PCR) - Final Influenza A (Subtype H3) Rhythm Strip Rhythm Strip: Sinus Rhythm Rate: 95 Physical Exam Narrative Seen and examined. Patient subjectively stated that shortness of breath is better as compared to yesterday. On 4 L of oxygen which she is also improved compared to yesterday. Denies chest pain pressure or tightness. Influenza A came positive. Physical exam General: Awake, alert and oriented x 3. HEENT: Atraumatic, PERRLA, EOMI, Normocephalic Oral: On BiPAP. Neck: Supple, No JVD, Negative Carotid Bruits Chest wall/Lungs: Air entry diminished in bilateral lung bases. Bilateral rhonchi heard present. On oxygen. Cardiovascular: Regular rate, Regular Rhythm, Normal S1, Normal S2, No M/G/R Abdomen: Bowel Sounds Present, Soft, Non Tender, Non-Distended : No dysuria. No renal angle tenderness. No suprapubic tenderness. Extremities: Mild bilateral lower leg pitting edema, Capillary Refill Less than 3 Seconds Skin: No rashes, No breakdown Musculoskeletal: No Tenderness to Palpation of Joints or Extremities. ROM restricted. 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 Neurological: Cranial nerves II-XII grossly intact, DTR 2+/4. No acute focal neurological deficit. Psych/Mental Status: Flat affect. Assessment & Plan Assessment/Plan (1) Heart failure due to high blood pressure: (2) Non-STEMI (non-ST elevated myocardial infarction): PLAN: Plan 1. Acute myocardial injury probably secondary to hypoxia from exacerbation of COPD and bilateral carotid stenosis: Patient is being admitted in PCU. 2D echo shows EF 70% with no regional wall motion abnormalities therefore does not seem acute FL. Normal RV systolic function, normal left and right atria. Normal mitral valve, mild TR, PASP 30 mmHg. Patient had high troponin 1220, 1240 and 1161. Previous troponins were negative. The patient was evaluated by precision assembly inspector. Advised to continue home medications for chronic HFpEF, Coreg, losartan and spironolactone. Lasix as needed. 09/08: Lasix, losartan and spironolactone are on hold due to BERNARDO. Patient on baby aspirin and Plavix. Patient does not have chest pain. Building Energy Retrofit Technician has signed off on 09/04. Did not feel that she has FL due to atherosclerotic stenosis but due to heart failure and increased demand, type II. 2. Acute hypoxic and hypercarbic combined respiratory failure due to acute COPD exacerbation due to multifocal pneumonia from influenza A. Early bacterial secondary infection:-patient is on aerosol treatments and is receiving IV Decadron, monitor pulse ox. Continue PT and OT 09/06/2023: Acute hypoxic respiratory failure due to COPD exacerbation and evolving right lower lobe, right upper lobe and left lower lobe multifocal pneumonia: Patient required 8 L of high flow oxygen in the morning. As per the nursing staff, she was also coughing was wet, tannish colored expectorate yesterday but not able to bring up any phlegm today. Repeat chest x-ray PA and lateral was done and individually reviewed. It shows evolving right lower lobe infiltrate, right upper lobe and left lower lobe infiltrate consistent with multifocal pneumonia. Started on IV Zosyn to cover for gram-positive, gram- negative and anaerobes. Pneumonia workup ordered. Discussed with the patient's daughter near the bedside. Patient is being managed on scheduled bronchodilator, steroid, Mucinex, incentive spirometry and Pep. BiPAP as needed 09/07: Patient got short of breath yesterday and continued overnight with increased oxygen requirement. ABG showed pH 7.33/pCO2 51/O2 69 seems on 7 L of oxygen. Patient was given Ativan 0.5 mg so that she can tolerate BiPAP. Influenza A, subtype H3 positive. Started on Tamiflu. Low-dose mirtazapine ordered from night. 09/08: Subjectively and objectively, shortness of breath/dyspnea has improved. Oxygen requirement improved from BiPAP to nasal cannula 4 L. Urinary antigens are negative. Continue above antibiotic. #3 spinal stenosis with right radicular pain and debility- PT and OT, patient remains on gabapentin, IV Decadron, and narcotics as needed for pain, again she is a poor surgical candidate to have any surgery done at this institution due to her comorbidities. Hospitalist colleague Dr. Chuck Joshua discussed with the patient's son and advised to follow-up in tertiary care to spine surgeon to evaluate for surgery. 09/06: Patient on IV dexamethasone, decreased to 4 mg every 8 hourly 5. Hypotension: Patient blood pressure in a.m. was 87/48 and Coreg was held. Later on BP improved to 118/85 and had Lasix, Aldactone and Cozaar which brought down the blood pressure down again 89/35, 90/32. Discussed with the nursing staff, space out all Lasix and Cozaar. Cozaar dose decreased 25 mg daily and switch to the evening time. 09/06: Blood pressure was also borderline but carvedilol dose decreased to 6.25 mg twice daily. 6. BERNARDO and hyperkalemia probably due to diuretic, spironolactone and potassium supplement: Patient on furosemide, potassium supplement and spironolactone which is temporarily held. Her baseline creatinine about 1.2 increased to 1.76. IV fluid low-dose 50 mill per hour for 1 L. Repeat labs tomorrow AM. 09/07: Creatinine seems better creatinine 1.5 BUN 90. Serum potassium 6.0. Repeat BMP ordered and pending. 09/08: Serum potassium 5.4. BUN/creatinine 68/1.31. Shows improvement. 7. Severe anemia with history of chronic anemia from CKD/anemia of chronic disease: Hemoglobin decreased from 8.5-7.5. Her baseline creatinine runs between 9 to 10 g. Will discontinue heparin subcu. H&H at 8 PM and if less than 7 g will need transfusion. DVT prophylaxis: Patient was on heparin 500 subcutaneous twice daily. Had increased bleeding locally after subcu injection. Hemoglobin also dropped as mentioned above. Therefore heparin subcu DVT dose discontinued. Patient on aspirin and Plavix. Microbiology Past 72 Hours 09/07/23 18:20 Urine Catheter - [place] Legionella Antigen - Final 09/07/23 18:20 Urine Catheter - [place] Streptococcus pneumoniae Antigen (M - Final 09/06/23 15:50 Mucosa - Nose Respiratory Panel (PCR) - Final Influenza A (Subtype H3) Laboratory Results 09/07/23 15:30: Potassium 5.5 H 09/07/23 18:20: Urine Color Yellow, Urine Clarity Clear, Urine pH 6.0, Ur Specific [place] 1.015, Urine Protein 30 H, Urine Glucose (UA) Normal, Urine Ketones Negative, Urine Occult Blood 25 H, Urine Nitrite Negative, Urine Bilirubin Negative, Urine Urobilinogen Normal, Ur Leukocyte Esterase 25 H, Urine RBC 5-10 SEEN, Urine WBC 0 SEEN, Ur Squamous Epith Cells 0 SEEN, Urine Bacteria 0 SEEN, Urine Mucus 0 SEEN 09/07/23 18:27: POC Glucose 197 H 09/07/23 19:59: POC Glucose 172 H 09/08/23 05:47: POC Glucose 182 H 09/08/23 06:30: WBC 7.3, RBC 2.39 L, Hgb 7.5 L, Hct 24.2 L, MCV 101.3 H, MCH 31.4, MCHC 31.0 L, RDW Std Deviation 61.3 H, RDW Coeff of Ha 16.8 H, Plt Count 120 L, MPV 10.3, Immature Gran % (Auto) 2.200 H, Neut % (Auto) 87.0 H, Lymph % (Auto) 6.1 L, [place] % (Auto) 4.4, Eos % (Auto) 0.0, Baso % (Auto) 0.3, Absolute Neuts (auto) 6.3, Absolute Lymphs (auto) 0.44 L, Nucleated RBC % 0.3, Differential Comment SCANNED, Microcytosis 3+, Sodium 141, Potassium 5.4 H, Chloride 110 H, Carbon Dioxide 29.0, Anion Gap 2 L, BUN 68 H, Creatinine 1.31 H, Estim Creat Clear Calc 28.06, Est GFR (MDRD) Af Amer 50 L, Est GFR (MDRD) Non-Af 41 L, BUN/Creatinine Ratio 51.9 H, Glucose 180 H, Calcium 9.2 09/08/23 11:34: POC Glucose 200 H Charges/Coding Visit Charges Inpatient E&M: 11670 Subs Hosp L2
[2023-09-08] MEDS: Pantoprazole Sodium 40 MG Tablet PO ×2 (13:22→20:15)
[2023-09-08] MEDS: 0.9% Normal Saline (250mL Bag) 250 ML 15 ML IV (14:49)
[2023-09-08 17:12] LABS: Bedside Glucose 136 mg/dL (74-106)
--- NOTE | 2023-09-08 19:30 | NURSING ---
Pt requesting to have meds given early due to feeling tired already.
[2023-09-08 20:14] LABS: Hematocrit 26.3 % (37-47); Hemoglobin 8.1 g/dL (12.0-15.0)
[2023-09-08] MEDS: Atorvastatin Calcium 40 MG Tablet PO (20:15)
[2023-09-08] MEDS: Pramipexole Di-HCl 0.5 MG Tablet 1.5 MG PO (20:15)
[2023-09-08] MEDS: Mirtazapine 15 MG Tablet PO (20:16)
[2023-09-08 20:56] LABS: Bedside Glucose 258 mg/dL (74-106)
[2023-09-09] VITALS (16 sets, daily range): BP systolic 92–154; BP diastolic 51–60; PULSE 75–114; RESP 12–26; TEMP 36.3–36.7; O2SAT 91–99
[2023-09-09] MEDS: Ipratropium/Albuterol Sulfate 3 ML AMPUL.NEB INHALATION ×4 (01:45→19:38)
[2023-09-09 06:07] LABS: Hematocrit 26.5 % (37-47); Hemoglobin 8.3 g/dL (12.0-15.0); Mean Corp Hgb Conc 31.3 g/dL (32-36); Mean Corpuscular Hgb 31.8 pg (27.0-32.0); Mean Corpuscular Volume 101.5 fL (81-99); Mean Platelet Vol. 10.4 fl (6.2-12.0); POSITIVE COUNT YES; POSITIVE DIFFERENTIAL YES; POSITIVE MORPHOLOGY YES; Platelet Count 126 K/mm3 (150-450); RBC Distribution Width CV 16.9 % (11.6-14.6); RBC Distribution Width SD 62.4 fl (35.1-43.9); Red Blood Count 2.61 M/mm3 (4.2-5.4); White Blood Count 6.8 K/mm3 (4.4-11.0)
[2023-09-09] MEDS: Piperacil/Tazobactam 3.375 GM in 0.9% Normal Saline (50mL MB+) 50 ML IV ×3 (06:14→20:17)
[2023-09-09 06:35] LABS: Anion Gap 3 (5-15); BUN 66 mg/dL (7-18); BUN/Creat Ratio 48.2 RATIO (10-20); Calcium,Total 9.2 mg/dL (8.5-10.1); Chloride 111 mmol/L (98-107); Creatinine, Serum 1.37 mg/dL (0.55-1.02); EST Glomerular Filtration Rate 39 mL/min (>60); Est Glom Filt Rate - Afr Amer 47 mL/min (>60); Estimated Creatinine Clearance 26.83 ml/min; Glucose 172 mg/dL (74-106); Potassium 5.1 mmol/L (3.5-5.1); Sodium Level 143 mmol/L (136-145)
[2023-09-09 07:03] LABS: Differential Indicated MANUAL DIFF
[2023-09-09 07:58] LABS: Bedside Glucose 117 mg/dL (74-106)
[2023-09-09 08:28] LABS: Eosinophil 2 % (0-5); Lymphocyte 9 % (19-41); Metamyelocyte 2 % (0-1); Monocyte 3 % (0-10); Myelocyte 3 % (0-0); Neutrophil-Band 6 % (0-5); Neutrophil-Segmented 75 % (47-70); Nucleated Red Bld Cells,Manual 1 % (0-5); Total Cells Counted 100 (MANUAL DIFF)
[2023-09-09 08:29] LABS: Vacuolated Cells 1+
[2023-09-09 08:32] LABS: Anisocytosis 1+
[2023-09-09 09:05] LABS: Absolute Neutrophil Count 5.5 X10^3/uL (2.0-7.7)
[2023-09-09 09:06] LABS: Absolute Lymphocyte Count 0.61 X10^3/uL (0.83-4.51)
[2023-09-09 09:09] LABS: Platelet Estimate SLT DEC (ADEQ)
[2023-09-09] MEDS: Clopidogrel Bisulfate 75 MG Tablet PO (10:08)
[2023-09-09] MEDS: Aspirin E.C. 81 MG Tablet PO (10:09)
[2023-09-09] MEDS: Senna/Docusate Sodium 1 Tablet 2 TABLET PO ×2 (10:09→19:56)
[2023-09-09] MEDS: DULoxetine Hcl 30 MG Capsule PO ×2 (10:09→20:05)
[2023-09-09] MEDS: Pantoprazole Sodium 40 MG Tablet PO ×2 (10:09→20:05)
[2023-09-09] MEDS: Carvedilol 6.25 MG Tablet PO ×2 (10:09→17:35)
[2023-09-09] MEDS: guaiFENesin/D-Methorphan TAB.SR.12H 2 TABLET PO ×2 (10:09→20:05)
[2023-09-09] MEDS: Oseltamivir Phosphate 30 MG Capsule PO (10:09)
[2023-09-09] MEDS: Gabapentin 100 MG Capsule 200 MG PO ×3 (10:10→16:23)
[2023-09-09] MEDS: Polyethylene Glycol 3350 17 GM PACKET PO (10:10)
[2023-09-09] MEDS: dexAMETHasone 4 MG/ML Vial IV (10:10)
[2023-09-09] MEDS: 0.9% Saline Lock 10 ML Syringe IV ×3 (10:16→20:17)
[2023-09-09] MEDS: Insulin Lispro 100 UNIT/ML INSULN.PEN 10 UNIT SC ×2 (11:54→17:36)
[2023-09-09] MEDS: Insulin Lispro 100 UNIT/ML INSULN.PEN SC ×2 (11:54→17:36)
[2023-09-09 12:16] LABS: Bedside Glucose 202 mg/dL (74-106)
--- NOTE | 2023-09-09 12:16 | PCM.PN.REN ---
Subjective Subjective no new events Objective Data Objective Data Vital Signs: Vital Signs Temp Pulse Resp BP Pulse Ox O2 Del Method O2 Flow Rate 97.6 F L 102 H 20 H 105/51 L 97 Nasal Cannula 2 09/09/23 10:05 09/09/23 10:05 09/09/23 10:05 09/09/23 10:05 09/09/23 10:05 09/09/23 10:05 09/09/23 10:05 FiO2 40 09/09/23 01:45 Oxygen Flow Rate (L/min) 2 Oxygen Delivery Method Nasal Cannula Weight: 66.361 kg Body Mass Index (BMI) 26.7 Intake & Output: Intake and Output for Last 24 Hours 09/07/23 09/08/23 09/09/23 23:59 23:59 23:59 Intake Total 1390 / 1630 1224.5 / 1224.5 440 / 440 Output Total 2500 / 3000 1675 / 1675 800 / 800 Balance -1110 / -1370 -450.5 / -450.5 -360 / -360 Lab / Micro Data 09/09/23 05:58 09/09/23 05:58 Labs: Laboratory Results - last 24 hr 09/08/23 16:53: POC Glucose 136 H 09/08/23 19:55: Hgb 8.1 L, Hct 26.3 L 09/08/23 20:11: POC Glucose 258 H 09/09/23 05:58: WBC 6.8, RBC 2.61 L, Hgb 8.3 L, Hct 26.5 L, MCV 101.5 H, MCH 31.8, MCHC 31.3 L, RDW Std Deviation 62.4 H, RDW Coeff of Ha 16.9 H, Plt Count 126 L, MPV 10.4, Neut % (Auto) Not Reportable, Absolute Neuts (auto) 5.5, Absolute Lymphs (auto) 0.61 L, Total Counted 100, Neutrophils % (Manual) 75 H, Band Neutrophils % 6 H, Lymphocytes % (Manual) 9 L, Monocytes % (Manual) 3, Eosinophils % (Manual) 2, Metamyelocytes % 2 H, Myelocytes % 3 H, Nucleated RBCs/100 WBC 1, Diff Path Review May foll, Toxic Vacuolation 1+, Platelet Estimate SLT DEC, Anisocytosis 1+, Sodium 143, Potassium 5.1, Chloride 111 H, Carbon Dioxide 29.0, Anion Gap 3 L, BUN 66 H, Creatinine 1.37 H, Estim Creat Clear Calc 26.83, Est GFR (MDRD) Af Amer 47 L, Est GFR (MDRD) Non-Af 39 L, BUN/Creatinine Ratio 48.2 H, Glucose 172 H, Calcium 9.2 09/09/23 07:38: POC Glucose 117 H Micro: Microbiology 09/06/23 14:39 Blood Culture (Wb) - Right Forearm Blood Culture - Preliminary No growth in 48 hours. 09/06/23 14:36 Blood Culture (Wb) - Right Hand Blood Culture - Preliminary No growth in 48 hours. 09/07/23 18:20 Urine Catheter - [place] Legionella Antigen - Final 09/07/23 18:20 Urine Catheter - [place] Streptococcus pneumoniae Antigen (M - Final 09/06/23 15:50 Mucosa - Nose Respiratory Panel (PCR) - Final Influenza A (Subtype H3) Rhythm Strip Rhythm Strip: Sinus Rhythm Rate: 95 Physical Exam Narrative alert and oriented x 3 S1S2 RRR lungs sounds coarse anteriorly no pitting edema Abdomen soft, nontender turner with clear yellow urine in bag Assessment & Plan Assessment/Plan (1) Hyperkalemia: (2) CKD (chronic kidney disease), stage III: (3) Acute hypoxic respiratory failure: PLAN: Plan This is an 87-year-old female with past medical history significant for hypertension, CKD, history of left kidney stone requiring cystoscopy, left ureteroscopy, stent placement and lithotripsy in 2011 who was admitted to the hospital after presenting with complaints of shortness of breath, admitted for acute hypoxic respiratory failure from COPD exacerbation, pneumonia and influenza A. Also noted to have detectable troponin levels. Nephrology consulted in view of elevated creatinine and hyperkalemia. - CKD stage IIIa; stable - Pneumonia, influenza; on IV antibiotics, IV steroids, tamiflu and breathing treatments. Volume status appears to be compensated. Hyperkalemia. K is better
--- NOTE | 2023-09-09 12:28 | PN.HOSP_ITS ---
Reason for Visit Reason for Visit: Diagnoses Hyperkalemia (09/03/23) Essential (primary) hypertension (09/03/23) Hypertensive heart disease with heart failure (09/03/23) Non-ST elevation (NSTEMI) myocardial infarction (09/03/23) Occlusion and stenosis of bilateral carotid arteries (09/03/23) Acute respiratory failure with hypoxia (09/03/23) Chronic kidney disease, stage 3 unspecified (09/03/23) Shortness of breath (09/03/23) Other specified abnormal findings of blood chemistry (09/03/23) Objective Data Objective Data Vital Signs: Vital Signs Temp Pulse Resp BP Pulse Ox O2 Del Method O2 Flow Rate 97.6 F L 102 H 20 H 105/51 L 97 Nasal Cannula 2 09/09/23 10:05 09/09/23 10:05 09/09/23 10:05 09/09/23 10:05 09/09/23 10:05 09/09/23 10:05 09/09/23 10:05 FiO2 40 09/09/23 01:45 Oxygen Flow Rate (L/min) 2 Oxygen Delivery Method Nasal Cannula Weight: 146 lb 4.815 oz Body Mass Index (BMI) 26.7 Intake & Output: Intake and Output for Last 24 Hours 09/07/23 09/08/23 09/09/23 23:59 23:59 23:59 Intake Total 1390 / 1630 1224.5 / 1224.5 440 / 440 Output Total 2500 / 3000 1675 / 1675 800 / 800 Balance -1110 / -1370 -450.5 / -450.5 -360 / -360 Lab / Micro Data 09/09/23 05:58 09/09/23 05:58 Labs: Laboratory Results - last 24 hr 09/08/23 16:53: POC Glucose 136 H 09/08/23 19:55: Hgb 8.1 L, Hct 26.3 L 09/08/23 20:11: POC Glucose 258 H 09/09/23 05:58: WBC 6.8, RBC 2.61 L, Hgb 8.3 L, Hct 26.5 L, MCV 101.5 H, MCH 31.8, MCHC 31.3 L, RDW Std Deviation 62.4 H, RDW Coeff of Ha 16.9 H, Plt Count 126 L, MPV 10.4, Neut % (Auto) Not Reportable, Absolute Neuts (auto) 5.5, Absolute Lymphs (auto) 0.61 L, Total Counted 100, Neutrophils % (Manual) 75 H, Band Neutrophils % 6 H, Lymphocytes % (Manual) 9 L, Monocytes % (Manual) 3, Eosinophils % (Manual) 2, Metamyelocytes % 2 H, Myelocytes % 3 H, Nucleated RBCs/100 WBC 1, Diff Path Review May foll, Toxic Vacuolation 1+, Platelet Estimate SLT DEC, Anisocytosis 1+, Sodium 143, Potassium 5.1, Chloride 111 H, Carbon Dioxide 29.0, Anion Gap 3 L, BUN 66 H, Creatinine 1.37 H, Estim Creat Clear Calc 26.83, Est GFR (MDRD) Af Amer 47 L, Est GFR (MDRD) Non-Af 39 L, BUN/Creatinine Ratio 48.2 H, Glucose 172 H, Calcium 9.2 09/09/23 07:38: POC Glucose 117 H 09/09/23 11:52: POC Glucose 202 H Micro: Microbiology 09/06/23 14:39 Blood Culture (Wb) - Right Forearm Blood Culture - Preliminary No growth in 48 hours. 09/06/23 14:36 Blood Culture (Wb) - Right Hand Blood Culture - Preliminary No growth in 48 hours. 09/07/23 18:20 Urine Catheter - [place] Legionella Antigen - Final 09/07/23 18:20 Urine Catheter - [place] Streptococcus pneumoniae Antigen (M - Final 09/06/23 15:50 Mucosa - Nose Respiratory Panel (PCR) - Final Influenza A (Subtype H3) Rhythm Strip Rhythm Strip: Sinus Rhythm Rate: 95 Physical Exam Narrative Seen and examined. Shortness of breath is better. On 2 L of oxygen. Subjectively patient feels better. Unfortunately pre-CERT yesterday otherwise patient is ready for discharge to SNF. Denies chest pain pressure or tightness. On Tamiflu for Influenza A came positive. Physical exam General: Awake, alert and oriented x 3. HEENT: Atraumatic, PERRLA, EOMI, Normocephalic Oral: Oral mucosa dry. Neck: Supple, No JVD, Negative Carotid Bruits Chest wall/Lungs: Air entry diminished in bilateral lung bases. Mild coarse crepitation in lung bases otherwise much improved. On oxygen. Cardiovascular: Regular rate, Regular Rhythm, Normal S1, Normal S2, No M/G/R Abdomen: Bowel Sounds Present, Soft, Non Tender, Non-Distended : No dysuria. No renal angle tenderness. No suprapubic tenderness. Extremities: Mild bilateral lower leg pitting edema, Capillary Refill Less than 3 Seconds Skin: No rashes, No breakdown Musculoskeletal: No Tenderness to Palpation of Joints or Extremities. ROM restricted. 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 Neurological: Cranial nerves II-XII grossly intact, DTR 2+/4. No acute focal neurological deficit. Psych/Mental Status: Flat affect. Assessment & Plan Assessment/Plan (1) Heart failure due to high blood pressure: (2) Non-STEMI (non-ST elevated myocardial infarction): PLAN: Plan 1. Acute myocardial injury probably secondary to hypoxia from exacerbation of COPD and bilateral carotid stenosis: Patient is being admitted in PCU. 2D echo shows EF 70% with no regional wall motion abnormalities therefore does not seem acute TN. Normal RV systolic function, normal left and right atria. Normal mi tral valve, mild TR, PASP 30 mmHg. Patient had high troponin 1220, 1240 and 1161. Previous troponins were negative. The patient was evaluated by ironworker wire fence erector. Advised to continue home medications for chronic HFpEF, Coreg, losartan and spironolactone. Lasix as needed. 09/08: Lasix, losartan and spironolactone are on hold due to BERNARDO. Patient on baby aspirin and Plavix. Patient does not have chest pain. Medical Assistant Instructor has signed off on 09/04. Did not feel that she has TN due to atherosclerotic stenosis but due to heart failure and increased demand, type II. 09/09: Lasix 20 mg IV started 1 dose and probably home dose from tomorrow AM. 2. Acute hypoxic and hypercarbic combined respiratory failure due to acute COPD exacerbation due to multifocal pneumonia from influenza A. Early bacterial secondary infection:-patient is on aerosol treatments and is receiving IV Decadron, monitor pulse ox. Continue PT and OT 09/06/2023: Acute hypoxic respiratory failure due to COPD exacerbation and evolving right lower lobe, right upper lobe and left lower lobe multifocal pneumonia: Patient required 8 L of high flow oxygen in the morning. As per the nursing staff, she was also coughing was wet, tannish colored expectorate yesterday but not able to bring up any phlegm today. Repeat chest x-ray PA and lateral was done and individually reviewed. It shows evolving right lower lobe infiltrate, right upper lobe and left lower lobe infiltrate consistent with multifocal pneumonia. Started on IV Zosyn to cover for gram-positive, gram- negative and anaerobes. Pneumonia workup ordered. Discussed with the patient's daughter near the bedside. Patient is being managed on scheduled bronchodilat or, steroid, Mucinex, incentive spirometry and Pep. BiPAP as needed 09/07: Patient got short of breath yesterday and continued overnight with increased oxygen requirement. ABG showed pH 7.33/pCO2 51/O2 69 seems on 7 L of oxygen. Patient was given Ativan 0.5 mg so that she can tolerate BiPAP. Influ katina A, subtype H3 positive. Started on Tamiflu. Low-dose mirtazapine ordered from night. 09/08: Subjectively and objectively, shortness of breath/dyspnea has improved. Oxygen requirement improved from BiPAP to nasal cannula 4 L. Urinary antigens are negative. Continue above antibiotic. 09/09: Respiratory status is much improved. On 1 L of oxygen. Advised to continue incentive spirometry and PEP for 1 week #3 spinal stenosis with right radicular pain and debility- PT and OT, patient remains on gabapentin, IV Decadron, and narcotics as needed for pain, again she is a poor surgical candidate to have any surgery done at this institution due to her comorbidities. Hospitalist colleague Dr. Chuck Joshua discussed with the patient's son and advised to follow-up in tertiary care to spine surgeon to evaluate for surgery. 09/06: Patient on IV dexamethasone, decreased to 4 mg every 8 hourly 09/07: Decrease IV dexamethasone to 2 mg every 12 hourly. 5. Hypotension: Patient blood pressure in a.m. was 87/48 and Coreg was held. Later on BP improved to 118/85 and had Lasix, Aldactone and Cozaar which brought down the blood pressure down again 89/35, 90/32. Discussed with the nursing staff, space out all Lasix and Cozaar. Cozaar dose decreased 25 mg daily and switch to the evening time. 09/06: Blood pressure was also borderline but carvedilol dose decreased to 6.25 mg twice daily. 09/09: Blood pressure fluctuates. BP morning 154/55 currently 105/51 probably due to morning medication of carvedilol. 6. BERNARDO and hyperkalemia probably due to diuretic, spironolactone and potassium supplement: Patient on furosemide, potassium supplement and spironolactone which is temporarily held. Her baseline creatinine about 1.2 increased to 1.76. IV fluid low-dose 50 mill per hour for 1 L. Repeat labs tomorrow AM. 09/07: Creatinine seems better creatinine 1.5 BUN 90. Serum potassium 6.0. Repeat BMP ordered and pending. 09/08: Serum potassium 5.4. BUN/creatinine 68/1.31. Shows improvement. 09/09: Creatinine 1.37. Continue to hold losartan and spironolactone. Potassium 5.1. 7. Severe anemia with history of chronic anemia from CKD/anemia of chronic disease: Hemoglobin decreased from 8.5-7.5. Her baseline creatinine runs between 9 to 10 g. Will discontinue heparin subcu. H&H at 8 PM and if less than 7 g will need transfusion. 09/09: Hemoglobin improved to 8.3. DVT prophylaxis: Patient was on heparin 500 subcutaneous twice daily. Had increased bleeding locally after subcu injection. Hemoglobin also dropped as mentioned above. Therefore heparin subcu DVT dose discontinued. Patient on aspirin and Plavix. Charges/Coding Visit Charges Inpatient E&M: 44704 Subs Hosp L2
[2023-09-09] MEDS: Furosemide 20 MG/2 ML VIAL IV (12:43)
[2023-09-09 14:54] LABS: Vitamin B12 696 pg/mL (211-911)
[2023-09-09] MEDS: Ferrous Sulfate 325 MG Tablet PO (16:23)
[2023-09-09 17:20] LABS: Bedside Glucose 167 mg/dL (74-106)
[2023-09-09] MEDS: Pramipexole Di-HCl 0.5 MG Tablet 1.5 MG PO (20:05)
[2023-09-09] MEDS: Mirtazapine 15 MG Tablet PO (20:05)
[2023-09-09] MEDS: Atorvastatin Calcium 40 MG Tablet PO (20:05)
[2023-09-09] MEDS: dexAMETHasone 4 MG/ML Vial 2 MG IV (20:06)
[2023-09-09 21:32] LABS: Bedside Glucose 140 mg/dL (74-106)
[2023-09-10] VITALS (17 sets, daily range): BP systolic 91–122; BP diastolic 41–56; PULSE 85–101; RESP 17–24; TEMP 36.5–36.8; O2SAT 94–99
[2023-09-10] MEDS: Ipratropium/Albuterol Sulfate 3 ML AMPUL.NEB INHALATION ×4 (01:34→20:05)
[2023-09-10] MEDS: Piperacil/Tazobactam 3.375 GM in 0.9% Normal Saline (50mL MB+) 50 ML IV ×3 (05:07→22:42)
[2023-09-10 06:03] LABS: Mean Corp Hgb Conc 30.8 g/dL (32-36); Mean Corpuscular Hgb 31.3 pg (27.0-32.0); Mean Corpuscular Volume 101.6 fL (81-99); Mean Platelet Vol. 10.6 fl (6.2-12.0); POSITIVE COUNT YES; POSITIVE DIFFERENTIAL YES; POSITIVE MORPHOLOGY YES; Platelet Count 140 K/mm3 (150-450); Red Blood Count 2.56 M/mm3 (4.2-5.4); White Blood Count 5.8 K/mm3 (4.4-11.0)
[2023-09-10 06:27] LABS: Differential Indicated MANUAL DIFF
[2023-09-10 07:47] LABS: Eosinophil 3 % (0-5); Lymphocyte 18 % (19-41); Metamyelocyte 1 % (0-1); Monocyte 3 % (0-10); Myelocyte 2 % (0-0); Neutrophil-Band 1 % (0-5); Neutrophil-Segmented 72 % (47-70); Total Cells Counted 100 (MANUAL DIFF)
[2023-09-10 07:48] LABS: Hypochromasia 2+; Platelet Estimate SLT DEC (ADEQ); Red Cell Morphology N CYTIC NORMAL (NORM C&C)
[2023-09-10 07:49] LABS: Absolute Lymphocyte Count 1.04 X10^3/uL (0.83-4.51); Absolute Neutrophil Count 4.2 X10^3/uL (2.0-7.7)
[2023-09-10] MEDS: Aspirin E.C. 81 MG Tablet PO (08:23)
[2023-09-10] MEDS: Gabapentin 100 MG Capsule 200 MG PO ×2 (08:23→11:49)
[2023-09-10 08:52] LABS: Bedside Glucose 76 mg/dL (74-106)
--- NOTE | 2023-09-10 09:58 | PN.HOSP_ITS ---
Reason for Visit Reason for Visit: Diagnoses Hyperkalemia (09/03/23) Essential (primary) hypertension (09/03/23) Hypertensive heart disease with heart failure (09/03/23) Non-ST elevation (NSTEMI) myocardial infarction (09/03/23) Occlusion and stenosis of bilateral carotid arteries (09/03/23) Acute respiratory failure with hypoxia (09/03/23) Chronic kidney disease, stage 3 unspecified (09/03/23) Shortness of breath (09/03/23) Other specified abnormal findings of blood chemistry (09/03/23) Objective Data Objective Data Vital Signs: Vital Signs Temp Pulse Resp BP Pulse Ox O2 Del Method O2 Flow Rate 98.3 F 85 17 95/41 L 94 Nasal Cannula 3 09/10/23 08:00 09/10/23 08:00 09/10/23 08:00 09/10/23 08:00 09/10/23 08:00 09/10/23 08:26 09/10/23 08:26 FiO2 30 09/10/23 04:25 Oxygen Flow Rate (L/min) 3 Oxygen Delivery Method Nasal Cannula Weight: 146 lb 4.815 oz Body Mass Index (BMI) 26.7 Intake & Output: Intake and Output for Last 24 Hours 09/08/23 09/09/23 09/10/23 23:59 23:59 23:59 Intake Total 1224.5 / 1224.5 1245.5 / 1245.5 50 / 50 Output Total 1675 / 1675 1750 / 1750 200 / 200 Balance -450.5 / -450.5 -504.5 / -504.5 -150 / -150 Lab / Micro Data 09/10/23 05:43 09/09/23 05:58 Labs: Laboratory Results - last 24 hr 09/09/23 11:52: POC Glucose 202 H 09/09/23 14:05: Vitamin B12 696, Folate 17.30 09/09/23 16:18: POC Glucose 167 H 09/09/23 20:19: POC Glucose 140 H 09/10/23 05:43: WBC 5.8, RBC 2.56 L, Hgb 8.0 L, Hct 26.0 L, MCV 101.6 H, MCH 31.3, MCHC 30.8 L, RDW Std Deviation 63.0 H, RDW Coeff of Ha 17.0 H, Plt Count 140 L, MPV 10.6, Neut % (Auto) Not Reportable, Absolute Neuts (auto) 4.2, Absolute Lymphs (auto) 1.04, Total Counted 100, Neutrophils % (Manual) 72 H, Band Neutrophils % 1, Lymphocytes % (Manual) 18 L, Monocytes % (Manual) 3, Eosinophils % (Manual) 3, Metamyelocytes % 1, Myelocytes % 2 H, Diff Path Review May foll, Platelet Estimate SLT DEC, RBC Morphology N CYTIC, Hypochromasia 2+ 09/10/23 08:22: POC Glucose 76 Micro: Microbiology 09/09/23 15:50 Stool Stool Occult Blood (ROYAL) - Final 09/06/23 14:39 Blood Culture (Wb) - Right Forearm Blood Culture - Prelim inary No growth in 48 hours. 09/06/23 14:36 Blood Culture (Wb) - Right Hand Blood Culture - Preliminary No growth in 48 hours. 09/07/23 18:20 Urine Catheter - [place] Legionella Antigen - Final 09/07/23 18:20 Urine Catheter - [place] Streptococcus pneumoniae Antigen (M - Final 09/06/23 15:50 Mucosa - Nose Respiratory Panel (PCR) - Final Influenza A (Subtype H3) Rhythm Strip Rhythm Strip: Sinus Rhythm Rate: 95 Physical Exam Narrative Seen and examined. Shortness of breath is better. Patient feels weak and fatigued. Subjectively patient feels better. Unfortunately pre-CERT on 09/08 otherwise patient is ready for discharge to SNF. Denies chest pain pressure or tightness. On Tamiflu for Influenza A came positive. Physical exam General: Awake, alert and oriented x 3. HEENT: Atraumatic, PERRLA, EOMI, Normocephalic Oral: Oral mucosa dry. Neck: Supple, No JVD, Negative Carotid Bruits Chest wall/Lungs: Air entry diminished in bilateral lung bases. Mild coarse crepitation in lung bases otherwise much improved. On oxygen. Cardiovascular: Regular rate, Regular Rhythm, Normal S1, Normal S2, No M/G/R Abdomen: Bowel Sounds Present, Soft, Non Tender, Non-Distended : No dysuria. No renal angle tenderness. No suprapubic tenderness. Extremities: Mild bilateral lower leg pitting edema, Capillary Refill Less than 3 Seconds Skin: No rashes, No breakdown Musculoskeletal: No Tenderness to Palpation of Joints or Extremities. ROM restr icted. 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 Neurological: Cranial nerves II-XII grossly intact, DTR 2+/4. No acute focal neurological deficit. Psych/Mental Status: Flat affect. Assessment & Plan Assessment/Plan (1) Heart failure due to high blood pressure: (2) Non-STEMI (non-ST elevated myocardial infarction): PLAN: Plan 1. Acute myocardial injury probably secondary to hypoxia from exacerbation of COPD and bilateral carotid stenosis: Patient is being admitted in PCU. 2D echo shows EF 70% with no regional wall motion abnormalities therefore does not seem acute MD. Normal RV systolic function, normal left and right atria. Normal mitral valve, mild TR, PASP 30 mmHg. Patient had high troponin 1220, 1240 and 1161. Previous troponins were negative. The patient was evaluated by brand development manager. Advised to continue home medications for chronic HFpEF, Coreg, l osartan and spironolactone. Lasix as needed. 09/08: Lasix, losartan and spironolactone are on hold due to BERNARDO. Patient on baby aspirin and Plavix. Patient does not have chest pain. Historiography Professor has signed off on 09/04. Did not feel that she has MD due to atherosclerotic stenosis but due to heart failure and increased demand, type II. 09/09: Lasix 20 mg IV started 1 dose and probably home dose from tomorrow AM. 09/10: Home dose Lasix 40 mg resumed. Monitor electrolytes. 2. Acute hypoxic and hypercarbic combined respiratory failure due to acute COPD exacerbation due to multifocal pneumonia from influenza A. Early bacterial secondary infection:-patient is on aerosol treatments and is receiving IV Decadron, monitor pulse ox. Continue PT and OT 09/06/2023: Acute hypoxic respiratory failure due to COPD exacerbation and evolving right lower lobe, right upper lobe and left lower lobe multifocal pneumonia: Patient required 8 L of high flow oxygen in the morning. As per the nursing staff, she was also coughing was wet, tannish colored expectorate yesterday but not able to bring up any phlegm today. Repeat chest x-ray PA and lateral was done and individually reviewed. It shows evolving right lower lobe infiltrate, right upper lobe and left lower lobe infiltrate consistent with mul tifocal pneumonia. Started on IV Zosyn to cover for gram-positive, gram- negative and anaerobes. Pneumonia workup ordered. Discussed with the patient's daughter near the bedside. Patient is being managed on scheduled bronchodilator, steroid, Mucinex, incentive spirometry and Pep. BiPAP as needed 09/07: Patient got short of breath yesterday and continued overnight with increased oxygen requirement. ABG showed pH 7.33/pCO2 51/O2 69 seems on 7 L of oxygen. Patient was given Ativan 0.5 mg so that she can tolerate BiPAP. Influenza A, subtype H3 positive. Started on Tamiflu. Low-dose mirtazapine ordered from night. 09/08: Subjectively and objectively, shortness of breath/dyspnea has improved. Oxygen requirement improved from BiPAP to nasal cannula 4 L. Urinary antigens are negative. Continue above antibiotic. 09/09: Respiratory status is much improved. On 1 L of oxygen. Advised to continue incentive spirometry and PEP for 1 week 09/10: Patient today on 4 L of oxygen. #3 spinal stenosis with right radicular pain and debility- PT and OT, patient remains on gabapentin, IV Decadron, and narcotics as needed for pain, again she is a poor surgical candidate to have any surgery done at this institution due to her comorbidities. Hospitalist colleague Dr. Chuck Joshua discussed with the patient's son and advised to follow-up in tertiary care to spine surgeon to evaluate for surgery. 09/06: Patient on IV dexamethasone, decreased to 4 mg every 8 hourly 09/07: Decrease IV dexamethasone to 2 mg every 12 hourly. 5. Hypotension: Patient blood pressure in a.m. was 87/48 and Coreg was held. Later on BP improved to 118/85 and had Lasix, Aldactone and Cozaar which brought down the blood pressure down again 89/35, 90/32. Discussed with the nursing staff, space out all Lasix and Cozaar. Cozaar dose decreased 25 mg daily and switch to the evening time. 09/06: Blood pressure was also borderline but carvedilol dose decreased to 6.25 mg twice daily. 09/09: Blood pressure fluctuates. BP morning 154/55 currently 105/51 probably due to morning medication of carvedilol. 6. BERNARDO and hyperkalemia probably due to diuretic, spironolactone and potassium supplement: Patient on furosemide, potassium supplement and spironolactone which is temporarily held. Her baseline creatinine about 1.2 increased to 1.76. IV fluid low-dose 50 mill per hour for 1 L. Repeat labs tomorrow AM. 09/07: Creatinine seems better creatinine 1.5 BUN 90. Serum potassium 6.0. Repeat BMP ordered and pending. 09/08: Serum potassium 5.4. BUN/creatinine 68/1.31. Shows improvement. 09/09: Creatinine 1.37. Continue to hold losartan and spironolactone. Potassium 5.1. 7. Severe anemia with history of chronic anemia from CKD/anemia of chronic disease: Hemoglobin decreased from 8.5-7.5. Her baseline creatinine runs between 9 to 10 g. Will discontinue heparin subcu. H&H at 8 PM and if less than 7 g will need transfusion. 09/09: Hemoglobin improved to 8.3. Anxiety and depression: Patient had agitation to 3 days ago. Started on mirtazapine 15 mg daily. 09/10: Patient was more lethargic and weak. Dose of mirtazapine decreased to 7.5 mg daily. Ativan dose decreased to 0.25 mg IV as needed if needed for BiPAP. Gabapentin dose decreased to 100 mg 3 times daily DVT prophylaxis: Patient was on heparin 500 subcutaneous twice daily. Had increased bleeding locally after subcu injection. Hemoglobin also dropped as mentioned above. Therefore heparin subcu DVT dose discontinued. Patient on aspirin and Plavix. Charges/Coding Visit Charges Inpatient E&M: 66426 Subs Hosp L2
[2023-09-10] MEDS: DULoxetine Hcl 30 MG Capsule PO (10:28)
[2023-09-10] MEDS: Carvedilol 6.25 MG Tablet PO (10:28)
[2023-09-10] MEDS: dexAMETHasone 4 MG/ML Vial 2 MG IV ×2 (10:28→22:39)
[2023-09-10] MEDS: Insulin Glargine-YFGN 100 UNIT/ML Pen 20 UNIT SC (10:29)
[2023-09-10] MEDS: guaiFENesin/D-Methorphan TAB.SR.12H 2 TABLET PO (10:29)
[2023-09-10] MEDS: Polyethylene Glycol 3350 17 GM PACKET PO (10:29)
[2023-09-10] MEDS: Clopidogrel Bisulfate 75 MG Tablet PO (10:30)
[2023-09-10] MEDS: Pantoprazole Sodium 40 MG Tablet PO (10:30)
[2023-09-10] MEDS: Senna/Docusate Sodium 1 Tablet 2 TABLET PO (10:30)
[2023-09-10] MEDS: Oseltamivir Phosphate 30 MG Capsule PO (10:36)
[2023-09-10 11:05] LABS: Bedside Glucose 149 mg/dL (74-106)
[2023-09-10] MEDS: Insulin Lispro 100 UNIT/ML INSULN.PEN SC (11:48)
[2023-09-10] MEDS: Insulin Lispro 100 UNIT/ML INSULN.PEN 10 UNIT SC (11:49)
[2023-09-10 12:15] LABS: Bedside Glucose 191 mg/dL (74-106)
[2023-09-10] MEDS: 0.9% Saline Lock 10 ML Syringe IV ×2 (13:42→22:40)
[2023-09-10 16:43] LABS: Bedside Glucose 120 mg/dL (74-106)
--- NOTE | 2023-09-10 19:30 | PCM.PN.REN ---
Subjective Subjective Following for BERNARDO on CKD and hyperkalemia. The patient is less dyspneic. There is no chest pain or pressure. She still feels easily fatigued. Objective Data Objective Data Vital Signs: Vital Signs Temp Pulse Resp BP Pulse Ox O2 Del Method O2 Flow Rate 97.9 F 97 18 109/49 L 98 Nasal Cannula 4 09/10/23 18:00 09/10/23 18:00 09/10/23 18:00 09/10/23 18:00 09/10/23 18:00 09/10/23 18:00 09/10/23 18:00 FiO2 30 09/10/23 04:25 Oxygen Flow Rate (L/min) 4 Oxygen Delivery Method Nasal Cannula Weight: 66.361 kg Body Mass Index (BMI) 26.7 Intake & Output: Intake and Output for Last 24 Hours 09/08/23 09/09/23 09/10/23 23:59 23:59 23:59 Intake Total 1224.5 / 1224.5 1245.5 / 1245.5 150 / 150 Output Total 1675 / 1675 1750 / 1750 900 / 900 Balance -450.5 / -450.5 -504.5 / -504.5 -750 / -750 Lab / Micro Data 09/10/23 05:43 09/09/23 05:58 Labs: Laboratory Results - last 24 hr 09/09/23 20:19: POC Glucose 140 H 09/10/23 05:43: WBC 5.8, RBC 2.56 L, Hgb 8.0 L, Hct 26.0 L, MCV 101.6 H, MCH 31.3, MCHC 30.8 L, RDW Std Deviation 63.0 H, RDW Coeff of Ha 17.0 H, Plt Count 140 L, MPV 10.6, Neut % (Auto) Not Reportable, Absolute Neuts (auto) 4.2, Absolute Lymphs (auto) 1.04, Total Counted 100, Neutrophils % (Manual) 72 H, Band Neutrophils % 1, Lymphocytes % (Manual) 18 L, Monocytes % (Manual) 3, Eosinophils % (Manual) 3, Metamyelocytes % 1, Myelocytes % 2 H, Diff Path Review November, Platelet Estimate SLT DEC, RBC Morphology N CYTIC, Hypochromasia 2+ 09/10/23 08:22: POC Glucose 76 09/10/23 10:25: POC Glucose 149 H 09/10/23 11:46: POC Glucose 191 H 09/10/23 16:22: POC Glucose 120 H Micro: Microbiology 09/09/23 15:50 Stool Stool Occult Blood (ROYAL) - Final 09/06/23 14:39 Blood Culture (Wb) - Right Forearm Blood Culture - Preliminary No growth in 48 hours. 09/06/23 14:36 Blood Culture (Wb) - Right Hand Blood Culture - Preliminary No growth in 48 hours. 09/07/23 18:20 Urine Catheter - [place] Legionella Antigen - Final 09/07/23 18:20 Urine Catheter - [place] Streptococcus pneumoniae Antigen (M - Final 09/06/23 15:50 Mucosa - Nose Respiratory Panel (PCR) - Final Influenza A (Subtype H3) Rhythm Strip Rhythm Strip: Sinus Rhythm Rate: 95 Physical Exam Narrative alert and oriented x 3 S1S2 RRR lungs sounds coarse anteriorly no pitting edema Abdomen soft, nontender turner with clear yellow urine in bag Assessment & Plan Assessment/Plan (1) Hyperkalemia: (2) CKD (chronic kidney disease), stage III: (3) Acute hypoxic respiratory failure: PLAN: Plan Impression/Plan: This is an 87-year-old female with past medical history significant for hypertension, CKD, history of left kidney stone requiring cystoscopy, left ureteroscopy, stent placement and lithotripsy in 2011 who was admitted to the hospital on 09/03/2023 after presenting with complaints of shortness of breath. The patient is admitted for treatment of acute hypoxic respiratory failure from COPD exacerbation, pneumonia and influenza A. Nephrology is following for BERNARDO on CKD and hyperkalemia. BERNARDO on CKD stage G3a. Baseline serum creatinine is around 1.30 mg/dL. Serum creatinine increased to 1.50 mg/dL on 09/07/2023. BERNARDO is likely due to decreased BP/EBV. She was also on ARB, spironolactone and furosemide prior to admission. Renal function has overall improved with mu-ism of BP. The most recent serum creatinine creatinine is close to baseline of 1.37 mg/dL on 09/09/2023. There is no new labs today. Will continue to hold losartan and spironolactone for now particularly since BP remains soft. Will continue to monitor renal function since she has been restarted on furosemide today. Recheck renal function again tomorrow. Hyperkalemia. Serum potassium was as high as 6.0 on 09/07/2023. The patient had been on losartan and spironolactone. Patient was treated with temporizing measure and sodium polystyrene sulfonate. Potassium has improved and is most recently 5.1 mmol/L on 09/09/2023. ARB and MRA remains on hold. Recheck potassium level tomorrow.
[2023-09-10 23:15] LABS: Bedside Glucose 131 mg/dL (74-106)
[2023-09-11] VITALS (11 sets, daily range): BP systolic 104–131; BP diastolic 42–63; PULSE 81–109; RESP 19–24; TEMP 36.4–36.9; O2SAT 94–98
[2023-09-11] MEDS: Ipratropium/Albuterol Sulfate 3 ML AMPUL.NEB INHALATION ×4 (01:42→19:47)
[2023-09-11 04:48] LABS: Absolute Lymphocyte Count 0.56 X10^3/uL (0.83-4.51); Absolute Neutrophil Count 4.5 X10^3/uL (2.0-7.7); Basophil# 0.02 X10^3/uL; Basophil% 0.3 % (0-1); Eosinophil# 0.18 X10^3/uL; Eosinophils% 2.9 % (0-5); Hematocrit 24.7 % (37-47); Hemoglobin 7.7 g/dL (12.0-15.0); Lymphocyte # 0.56 X10^3/ul (0.83-4.51); Mean Corp Hgb Conc 31.2 g/dL (32-36); Mean Corpuscular Hgb 32.6 pg (27.0-32.0); Mean Corpuscular Volume 104.7 fL (81-99); Mean Platelet Vol. 10.6 fl (6.2-12.0); Monocyte% 4.8 % (0-10); NRBC Flagged by Analyzer 0.5 % (0-5); Neutrophil # 4.51 X10^3/uL (2.7-7.7); Neutrophil % 72.1 % (47-70); POSITIVE COUNT YES; POSITIVE DIFFERENTIAL YES; POSITIVE MORPHOLOGY YES; Platelet Count 131 K/mm3 (150-450); RBC Distribution Width CV 17.2 % (11.6-14.6); RBC Distribution Width SD 65.4 fl (35.1-43.9); Red Blood Count 2.36 M/mm3 (4.2-5.4); White Blood Count 6.3 K/mm3 (4.4-11.0)
[2023-09-11 04:51] LABS: Differential Indicated SCAN CRITERIA MET
[2023-09-11 04:59] LABS: Anion Gap 2 (5-15); BUN 58 mg/dL (7-18); BUN/Creat Ratio 46.8 RATIO (10-20); Calcium,Total 8.4 mg/dL (8.5-10.1); Chloride 112 mmol/L (98-107); Creatinine, Serum 1.24 mg/dL (0.55-1.02); EST Glomerular Filtration Rate 44 mL/min (>60); Est Glom Filt Rate - Afr Amer 53 mL/min (>60); Estimated Creatinine Clearance 29.64 ml/min; Glucose 83 mg/dL (74-106); Potassium 4.1 mmol/L (3.5-5.1); Sodium Level 146 mmol/L (136-145)
[2023-09-11] MEDS: Piperacil/Tazobactam 3.375 GM in 0.9% Normal Saline (50mL MB+) 50 ML IV ×3 (05:08→22:49)
[2023-09-11 05:12] LABS: Differential Comment SCANNED
[2023-09-11 05:15] LABS: Anisocytosis 2+
[2023-09-11 07:56] LABS: Bedside Glucose 73 mg/dL (74-106)
--- NOTE | 2023-09-11 08:13 | RAD_ITS ---
STUDY: X-RAY CHEST REASON FOR EXAM: Female, 87 years old. hypoxia TECHNIQUE: Single AP portable view of the chest. COMPARISON: 09/06/2023 FINDINGS: Poor inspiration with some bibasilar atelectasis. There is no demonstrated pleural abnormality. Normal size heart. Normal mediastinum and yamilka. Normal visualized pulmonary arteries. Normal visualized aortic arch and descending thoracic aorta. Normal visualized thoracic spine. Normal visualized ribs, clavicles, and shoulders. There is no demonstrated abnormality of the visualized soft tissue structures of the upper abdomen. RAD/Chest 1 View (Portable) IMPRESSION: Poor inspiration with some bibasilar atelectasis. Electronically Signed: Yosi Price MD at 8:43 EST ,
--- NOTE | 2023-09-11 09:53 | PCM.PN.HOSP ---
Reason for Visit Reason for Visit: Diagnoses Hyperkalemia (09/03/23) Essential (primary) hypertension (09/03/23) Hypertensive heart disease with heart failure (09/03/23) Non-ST elevation (NSTEMI) myocardial infarction (09/03/23) Occlusion and stenosis of bilateral carotid arteries (09/03/23) Acute respiratory failure with hypoxia (09/03/23) Chronic kidney disease, stage 3 unspecified (09/03/23) Shortness of breath (09/03/23) Other specified abnormal findings of blood chemistry (09/03/23) Objective Data Objective Data Vital Signs: Vital Signs Temp Pulse Resp BP Pulse Ox O2 Del Method O2 Flow Rate 97.6 F L 88 20 H 118/42 L 97 Nasal Cannula 4 09/11/23 04:54 09/11/23 07:01 09/11/23 07:01 09/11/23 04:54 09/11/23 08:23 09/11/23 07:01 09/11/23 08:23 FiO2 30 09/10/23 04:25 Oxygen Flow Rate (L/min) 4 Oxygen Delivery Method Nasal Cannula Weight: 146 lb 4.815 oz Body Mass Index (BMI) 26.7 Intake & Output: Intake and Output for Last 24 Hours 09/09/23 09/10/23 09/11/23 23:59 23:59 23:59 Intake Total 1245.5 / 1245.5 150 / 150 50 / 50 Output Total 1750 / 1750 900 / 1000 500 / 500 Balance -504.5 / -504.5 -750 / -850 -450 / -450 Lab / Micro Data 09/11/23 04:30 09/11/23 04:30 Labs: Laboratory Results - last 24 hr 09/10/23 10:25: POC Glucose 149 H 09/10/23 11:46: POC Glucose 191 H 09/10/23 16:22: POC Glucose 120 H 09/10/23 22:45: POC Glucose 131 H 09/11/23 04:30: WBC 6.3, RBC 2.36 L, Hgb 7.7 L, Hct 24.7 L, MCV 104.7 H, MCH 32.6 H, MCHC 31.2 L, RDW Std Deviation 65.4 H, RDW Coeff of Ha 17.2 H, Plt Count 131 L, MPV 10.6, Immature Gran % (Auto) 10.900 H, Neut % (Auto) 72.1 H, Lymph % (Auto) 9.0 L, [place] % (Auto) 4.8, Eos % (Auto) 2.9, Baso % (Auto) 0.3, Absolute Neuts (auto) 4.5, Absolute Lymphs (auto) 0.56 L, Nucleated RBC % 0.5, Differential Comment SCANNED, Diff Path Review May foll, Anisocytosis 2+, Sodium 146 H, Potassium 4.1, Chloride 112 H, Carbon Dioxide 32.0, Anion Gap 2 L, BUN 58 H, Creatinine 1.24 H, Estim Creat Clear Calc 29.64, Est GFR (MDRD) Af Amer 53 L, Est GFR (MDRD) Non-Af 44 L, BUN/Creatinine Ratio 46.8 H, Glucose 83, Calcium 8.4 L 09/11/23 07:39: POC Glucose 73 L Micro: Microbiology 09/09/23 15:50 Stool Stool Occult Blood (ROYAL) - Final 09/06/23 14:39 Blood Culture (Wb) - Right Forearm Blood Culture - Preliminary No growth in 48 hours. 09/06/23 14:36 Blood Culture (Wb) - Right Hand Blood Culture - Preliminary No growth in 48 hours. 09/07/23 18:20 Urine Catheter - [place] Legionella Antigen - Final 09/07/23 18:20 Urine Catheter - [place] Streptococcus pneumoniae Antigen (M - Final 09/06/23 15:50 Mucosa - Nose Respiratory Panel (PCR) - Final Influenza A (Subtype H3) Radiography Diagnostic Testing: Radiology Impression Chest X-Ray 09/11/23 08:13 IMPRESSION: Poor inspiration with some bibasilar atelectasis. Electronically Signed: Yosi Price MD at 8:43 EST , Rhythm Strip Rhythm Strip: Sinus Rhythm Rate: 95 Physical Exam Narrative Seen and examined. Shortness of breath is better. Her oxygen requirement increased to 4 L for last 2 days. Reason unclear. Chest x-ray portable ordered. Subjectively patient feels better. Unfortunately pre-CERT on 09/08 otherwise patient is ready for discharge to SNF. Denies chest pain pressure or tightness. On Tamiflu, last day for Influenza A came positive. Physical exam General: Awake, alert and oriented x 3. HEENT: Atraumatic, PERRLA, EOMI, Normocephalic Oral: Oral mucosa moist. Neck: Supple, No JVD, Negative Carotid Bruits Chest wall/Lungs: Air entry diminished in bilateral lung bases. Mild coarse crepitation in lung bases. Shortness of breath better. Cardiovascular: Regular rate, Regular Rhythm, Normal S1, Normal S2, No M/G/R Abdomen: Bowel Sounds Present, Soft, Non Tender, Non-Distended : No dysuria. No renal angle tenderness. No suprapubic tenderness. Extremities: Mild bilateral lower leg pitting edema, Capillary Refill Less than 3 Seconds Skin: No rashes, No breakdown Musculoskeletal: No Tenderness to Palpation of Joints or Extremities. ROM restricted. 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 Neurological: Cranial nerves II-XII grossly intact, DTR 2+/4. No acute focal neurological deficit. Psych/Mental Status: Flat affect. Assessment & Plan Assessment/Plan (1) Heart failure due to high blood pressure: (2) Non-STEMI (non-ST elevated myocardial infarction): PLAN: Plan 1. Acute myocardial injury probably secondary to hypoxia from exacerbation of COPD and bilateral carotid stenosis: Patient is being admitted in PCU. 2D echo shows EF 70% with no regional wall motion abnormalities therefore does not seem acute ID. Normal RV systolic function, normal left and right atria. Normal mitral valve, mild TR, PASP 30 mmHg. Patient had high troponin 1220, 1240 and 1161. Previous troponins were negative. The patient was evaluated by medical appointment scheduler. Advised to continue home medications for chronic HFpEF, Coreg, losartan and spironolactone. Lasix as needed. 09/08: Lasix, losartan and spironolactone are on hold due to BERNARDO. Patient on baby aspirin and Plavix. Patient does not have chest pain. Asset Coordinator has signed off on 09/04. Did not feel that she has ID due to atherosclerotic stenosis but due to heart failure and increased demand, type II. 09/09: Lasix 20 mg IV started 1 dose and probably home dose from tomorrow AM. 09/10: Home dose Lasix 40 mg resumed. Monitor electrolytes. 2. Acute hypoxic and hypercarbic combined respiratory failure due to acute COPD exacerbation due to multifocal pneumonia from influenza A. Early bacterial secondary infection:-patient is on aerosol treatments and is receiving IV Decadron, monitor pulse ox. Continue PT and OT 09/06/2023: Acute hypoxic respiratory failure due to COPD exacerbation and evolving right lower lobe, right upper lobe and left lower lobe multifocal pneumonia: Patient required 8 L of high flow oxygen in the morning. As per the nursing staff, she was also coughing was wet, tannish colored expectorate yesterday but not able to bring up any phlegm today. Repeat chest x-ray PA and lateral was done and individually reviewed. It shows evolving right lower lobe infiltrate, right upper lobe and left lower lobe infiltrate consistent with multifocal pneumonia. Started on IV Zosyn to cover for gram-positive, gram-negative and anaerobes. Pneumonia workup ordered. Discussed with the patient's daughter near the bedside. Patient is being managed on scheduled bronchodilator, steroid, Mucinex, incentive spirometry and Pep. BiPAP as needed 09/07: Patient got short of breath yesterday and continued overnight with increased oxygen requirement. ABG showed pH 7.33/pCO2 51/O2 69 seems on 7 L of oxygen. Patient was given Ativan 0.5 mg so that she can tolerate BiPAP. Influenza A, subtype H3 positive. Started on Tamiflu. Low-dose mirtazapine ordered from night. 09/08: Subjectively and objectively, shortness of breath/dyspnea has improved. Oxygen requirement improved from BiPAP to nasal cannula 4 L. Urinary antigens are negative. Continue above antibiotic. 09/09: Respiratory status is much improved. On 1 L of oxygen. Advised to continue incentive spirometry and PEP for 1 week 09/10: Patient today on 4 L of oxygen. 09/11: Repeat chest x-ray was done which shows no significant interstitial edema. Shows poor inspiration with bibasilar atelectasis. Normal mediastinum and hilar. Will keep Lasix 40 mm daily and aggressive bronchopulmonary hygiene. #3 spinal stenosis with right radicular pain and debility- PT and OT, patient remains on gabapentin, IV Decadron, and narcotics as needed for pain, again she is a poor surgical candidate to have any surgery done at this institution due to her comorbidities. Hospitalist colleague Dr. Chuck Joshua discussed with the patient's son and advised to follow-up in tertiary care to spine surgeon to evaluate for surgery. 09/06: Patient on IV dexamethasone, decreased to 4 mg every 8 hourly 09/07: Decrease IV dexamethasone to 2 mg every 12 hourly. 5. Hypotension: Patient blood pressure in a.m. was 87/48 and Coreg was held. Later on BP improved to 118/85 and had Lasix, Aldactone and Cozaar which brought down the blood pressure down again 89/35, 90/32. Discussed with the nursing staff, space out all Lasix and Cozaar. Cozaar dose decreased 25 mg daily and switch to the evening time. 09/06: Blood pressure was also borderline but carvedilol dose decreased to 6.25 mg twice daily. 09/09: Blood pressure fluctuates. BP morning 154/55 currently 105/51 probably due to morning medication of carvedilol. 6. BERNARDO and hyperkalemia probably due to diuretic, spironolactone and potassium supplement: Patient on furosemide, potassium supplement and spironolactone which is temporarily held. Her baseline creatinine about 1.2 increased to 1.76. IV fluid low-dose 50 mill per hour for 1 L. Repeat labs tomorrow AM. 09/07: Creatinine seems better creatinine 1.5 BUN 90. Serum potassium 6.0. Repeat BMP ordered and pending. 09/08: Serum potassium 5.4. BUN/creatinine 68/1.31. Shows improvement. 09/09: Creatinine 1.37. Continue to hold losartan and spironolactone. Potassium 5.1. 09/11: Creatinine 1.24. Potassium level normal. 7. Severe anemia with history of chronic anemia from CKD/anemia of chronic disease: Hemoglobin decreased from 8.5-7.5. Her baseline creatinine runs between 9 to 10 g. Will discontinue heparin subcu. H&H at 8 PM and if less than 7 g will need transfusion. 09/09: Hemoglobin improved to 8.3. 09/10: Hemoglobin 7.7. Her iron studies from August 2022 shows ferritin 640, iron 95, TIBC 180 and iron saturation 52%. Consistent with anemia of chronic disease. Anxiety and depression: Patient had agitation to 3 days ago. Started on mirtazapine 15 mg daily. 09/10: Patient was more lethargic and weak. Dose of mirtazapine decreased to 7.5 mg daily. Ativan dose decreased to 0.25 mg IV as needed if needed for BiPAP. Gabapentin dose decreased to 100 mg 3 times daily DVT prophylaxis: Patient was on heparin 500 subcutaneous twice daily. Had increased bleeding locally after subcu injection. Hemoglobin also dropped as mentioned above. Therefore heparin subcu DVT dose discontinued. Patient on aspirin and Plavix. Microbiology Past 72 Hours 09/09/23 15:50 Stool Stool Occult Blood (ROYAL) - Final 09/06/23 14:39 Blood Culture (Wb) - Right Forearm Blood Culture - Preliminary No growth in 48 hours. 09/06/23 14:36 Blood Culture (Wb) - Right Hand Blood Culture - Preliminary No growth in 48 hours. Laboratory Results 09/10/23 10:25: POC Glucose 149 H 09/10/23 11:46: POC Glucose 191 H 09/10/23 16:22: POC Glucose 120 H 09/10/23 22:45: POC Glucose 131 H 09/11/23 04:30: WBC 6.3, RBC 2.36 L, Hgb 7.7 L, Hct 24.7 L, MCV 104.7 H, MCH 32.6 H, MCHC 31.2 L, RDW Std Deviation 65.4 H, RDW Coeff of Ha 17.2 H, Plt Count 131 L, MPV 10.6, Immature Gran % (Auto) 10.900 H, Neut % (Auto) 72.1 H, Lymph % (Auto) 9.0 L, [place] % (Auto) 4.8, Eos % (Auto) 2.9, Baso % (Auto) 0.3, Absolute Neuts (auto) 4.5, Absolute Lymphs (auto) 0.56 L, Nucleated RBC % 0.5, Differential Comment SCANNED, Diff Path Review May foll, Anisocytosis 2+, Sodium 146 H, Potassium 4.1, Chloride 112 H, Carbon Dioxide 32.0, Anion Gap 2 L, BUN 58 H, Creatinine 1.24 H, Estim Creat Clear Calc 29.64, Est GFR (MDRD) Af Amer 53 L, Est GFR (MDRD) Non-Af 44 L, BUN/Creatinine Ratio 46.8 H, Glucose 83, Calcium 8.4 L 09/11/23 07:39: POC Glucose 73 L Charges/Coding Visit Charges Inpatient E&M: 71019 Subs Hosp L2
[2023-09-11] MEDS: dexAMETHasone 4 MG/ML Vial 2 MG IV (10:04)
[2023-09-11] MEDS: 0.9% Saline Lock 10 ML Syringe IV ×3 (10:05→22:49)
[2023-09-11] MEDS: Sodium Ferric Gluconat/Sucrose 250 MG in 0.9% Normal Saline (250mL Bag) 250 ML 135 MG IV (10:07)
[2023-09-11 12:14] LABS: Bedside Glucose 72 mg/dL (74-106)
[2023-09-11] MEDS: Gabapentin 100 MG Capsule PO ×2 (12:18→17:56)
[2023-09-11] MEDS: Oseltamivir Phosphate 30 MG Capsule PO (12:18)
[2023-09-11] MEDS: Ferrous Sulfate 325 MG Tablet PO (12:19)
[2023-09-11] MEDS: Senna/Docusate Sodium 1 Tablet 2 TABLET PO ×2 (12:19→22:34)
[2023-09-11] MEDS: Polyethylene Glycol 3350 17 GM PACKET PO (12:19)
[2023-09-11 16:49] LABS: Bedside Glucose 182 mg/dL (74-106)
[2023-09-11] MEDS: Insulin Lispro 100 UNIT/ML INSULN.PEN SC (17:07)
--- NOTE | 2023-09-11 17:08 | PCM.PN.REN ---
Subjective Subjective Following for BERNARDO on CKD and hyperkalemia. The patient denies chest pain, shortness of breath at rest, or nausea. Objective Data Objective Data Vital Signs: Vital Signs Temp Pulse Resp BP Pulse Ox O2 Del Method O2 Flow Rate 98.0 F 93 19 H 104/53 L 94 Nasal Cannula 3 09/11/23 16:13 09/11/23 16:13 09/11/23 16:13 09/11/23 16:13 09/11/23 16:13 09/11/23 16:16 09/11/23 16:16 FiO2 30 09/10/23 04:25 Oxygen Flow Rate (L/min) 3 Oxygen Delivery Method Nasal Cannula Weight: 66.361 kg Body Mass Index (BMI) 26.7 Intake & Output: Intake and Output for Last 24 Hours 09/09/23 09/10/23 09/11/23 23:59 23:59 23:59 Intake Total 1245.5 / 1245.5 150 / 150 370 / 370 Output Total 1750 / 1750 900 / 1000 500 / 500 Balance -504.5 / -504.5 -750 / -850 -130 / -130 Lab / Micro Data 09/11/23 04:30 09/11/23 04:30 Labs: Laboratory Results - last 24 hr 09/10/23 22:45: POC Glucose 131 H 09/11/23 04:30: WBC 6.3, RBC 2.36 L, Hgb 7.7 L, Hct 24.7 L, MCV 104.7 H, MCH 32.6 H, MCHC 31.2 L, RDW Std Deviation 65.4 H, RDW Coeff of Ha 17.2 H, Plt Count 131 L, MPV 10.6, Immature Gran % (Auto) 10.900 H, Neut % (Auto) 72.1 H, Lymph % (Auto) 9.0 L, [place] % (Auto) 4.8, Eos % (Auto) 2.9, Baso % (Auto) 0.3, Absolute Neuts (auto) 4.5, Absolute Lymphs (auto) 0.56 L, Nucleated RBC % 0.5, Differential Comment SCANNED, Diff Path Review May foll, Anisocytosis 2+, Sodium 146 H, Potassium 4.1, Chloride 112 H, Carbon Dioxide 32.0, Anion Gap 2 L, BUN 58 H, Creatinine 1.24 H, Estim Creat Clear Calc 29.64, Est GFR (MDRD) Af Amer 53 L, Est GFR (MDRD) Non-Af 44 L, BUN/Creatinine Ratio 46.8 H, Glucose 83, Calcium 8.4 L 09/11/23 07:39: POC Glucose 73 L 09/11/23 11:55: POC Glucose 72 L 09/11/23 16:12: POC Glucose 182 H Micro: Microbiology 09/06/23 14:39 Blood Culture (Wb) - Right Forearm Blood Culture - Final No growth in 5 days. 09/06/23 14:36 Blood Culture (Wb) - Right Hand Blood Culture - Final No growth in 5 days. 09/09/23 15:50 Stool Stool Occult Blood (ROYAL) - Final 09/07/23 18:20 Urine Catheter - [place] Legionella Antigen - Final 09/07/23 18:20 Urine Catheter - [place] Streptococcus pneumoniae Antigen (M - Final 09/06/23 15:50 Mucosa - Nose Respiratory Panel (PCR) - Final Influenza A (Subtype H3) Radiography Diagnostic Testing: Radiology Impression Chest X-Ray 09/11/23 08:13 IMPRESSION: Poor inspiration with some bibasilar atelectasis. Electronically Signed: Yosi Price MD at 8:43 EST , Rhythm Strip Rhythm Strip: Sinus Rhythm Rate: 95 Physical Exam Narrative alert and oriented x 3 S1S2 RRR lungs sounds coarse anteriorly no pitting edema Abdomen soft, nontender turner with clear yellow urine in bag Assessment & Plan Assessment/Plan (1) Hyperkalemia: (2) CKD (chronic kidney disease), stage III: (3) Acute hypoxic respiratory failure: PLAN: Plan Impression/Plan: This is an 87-year-old female with past medical history significant for hypertension, CKD, history of left kidney stone requiring cystoscopy, left ureteroscopy, stent placement and lithotripsy in 2011 who was admitted to the hospital on 09/03/2023 after presenting with complaints of shortness of breath. The patient is being treated for acute hypoxic respiratory failure from COPD exacerbation, pneumonia and influenza A. Nephrology is following for BERNARDO on CKD and hyperkalemia. BERNARDO on CKD stage G3a. Baseline serum creatinine is around 1.30 mg/dL. Serum creatinine increased to 1.50 mg/dL on 09/07/2023. BERNARDO is likely due to decreased BP/EBV. She was also on ARB, spironolactone and furosemide prior to admission. Since 09/07/2023, renal function has overall improved with [place] of BP. Serum creatinine is down to 1.24 mg/dL today (09/11/2023). The patient did miss her dose of furosemide yesterday on 09/10/2023. Today repeated first day with furosemide. Will continue to hold losartan and spironolactone for now particularly since BP remains soft. Will continue to monitor renal function since the patient is being diuresed. Recheck renal function again tomorrow. Hyperkalemia. Serum potassium was as high as 6.0 on 09/07/2023. The patient had been on losartan and spironolactone. Patient was treated with temporizing measure and sodium polystyrene sulfonate. Potassium has improved and is most recently 4.1 mmol/L on 09/11/2023. ARB and MRA remains on hold because of soft BP. Recheck potassium level tomorrow.
[2023-09-11] MEDS: Carvedilol 6.25 MG Tablet PO (17:56)
[2023-09-11] MEDS: 0.9% Normal Saline (250mL Bag) 250 ML 15 ML IV (18:13)
[2023-09-11] MEDS: Atorvastatin Calcium 40 MG Tablet PO (22:30)
[2023-09-11] MEDS: Pramipexole Di-HCl 0.5 MG Tablet 1.5 MG PO (22:31)
[2023-09-11] MEDS: DULoxetine Hcl 30 MG Capsule PO (22:31)
[2023-09-11] MEDS: Pantoprazole Sodium 40 MG Tablet PO (22:32)
[2023-09-11] MEDS: guaiFENesin/D-Methorphan TAB.SR.12H 2 TABLET PO (22:32)
[2023-09-11] MEDS: Mirtazapine 15 MG Tablet 7.5 MG PO (22:34)
[2023-09-12] VITALS (8 sets, daily range): BP systolic 92–131; BP diastolic 44–48; PULSE 78–100; RESP 18–20; TEMP 36.6–36.7; O2SAT 94–98
[2023-09-12] LABS: Bedside Glucose 132 mg/dL (74-106)
[2023-09-12] MEDS: Ipratropium/Albuterol Sulfate 3 ML AMPUL.NEB INHALATION ×3 (03:04→13:09)
[2023-09-12] MEDS: Piperacil/Tazobactam 3.375 GM in 0.9% Normal Saline (50mL MB+) 50 ML IV ×2 (06:27→14:01)
[2023-09-12 08:05] LABS: Albumin, Serum 1.6 g/dL (3.2-5.0); BUN 44 mg/dL (7-18); BUN/Creat Ratio 42.7 RATIO (10-20); Calcium,Total 8.7 mg/dL (8.5-10.1); Chloride 112 mmol/L (98-107); Creatinine, Serum 1.03 mg/dL (0.55-1.02); EST Glomerular Filtration Rate 54 mL/min (>60); Est Glom Filt Rate - Afr Amer 65 mL/min (>60); Estimated Creatinine Clearance 35.68 ml/min; Glucose 82 mg/dL (74-106); Phosphorus 2.5 mg/dL (2.5-4.9); Potassium 4.4 mmol/L (3.5-5.1); Sodium Level 142 mmol/L (136-145)
[2023-09-12] MEDS: Aspirin E.C. 81 MG Tablet PO (08:13)
[2023-09-12] MEDS: Carvedilol 6.25 MG Tablet PO (08:13)
[2023-09-12] MEDS: Pantoprazole Sodium 40 MG Tablet PO (08:13)
[2023-09-12] MEDS: Furosemide 40 MG Tablet PO (08:14)
[2023-09-12] MEDS: guaiFENesin/D-Methorphan TAB.SR.12H 2 TABLET PO (08:14)
[2023-09-12] MEDS: DULoxetine Hcl 30 MG Capsule PO (08:14)
[2023-09-12] MEDS: Insulin Glargine-YFGN 100 UNIT/ML Pen 20 UNIT SC (08:16)
[2023-09-12] MEDS: Clopidogrel Bisulfate 75 MG Tablet PO (08:16)
[2023-09-12] MEDS: Gabapentin 100 MG Capsule PO ×2 (08:26→14:01)
--- NOTE | 2023-09-12 08:31 | PN.HOSP_ITS ---
Reason for Visit Reason for Visit: Diagnoses Hyperkalemia (09/03/23) Essential (primary) hypertension (09/03/23) Hypertensive heart disease with heart failure (09/03/23) Non-ST elevation (NSTEMI) myocardial infarction (09/03/23) Occlusion and stenosis of bilateral carotid arteries (09/03/23) Acute respiratory failure with hypoxia (09/03/23) Chronic kidney disease, stage 3 unspecified (09/03/23) Shortness of breath (09/03/23) Other specified abnormal findings of blood chemistry (09/03/23) Objective Data Objective Data Vital Signs: Vital Signs Temp Pulse Resp BP Pulse Ox O2 Del Method O2 Flow Rate 98.0 F 78 20 H 131/45 H 96 Nasal Cannula 3.5 09/12/23 06:00 09/12/23 06:00 09/12/23 06:00 09/12/23 06:00 09/12/23 06:00 09/12/23 06:00 09/12/23 06:00 FiO2 30 09/10/23 04:25 Oxygen Flow Rate (L/min) 3.5 Oxygen Delivery Method Nasal Cannula Weight: 146 lb 4.815 oz Body Mass Index (BMI) 26.7 Intake & Output: Intake and Output for Last 24 Hours 09/10/23 09/11/23 09/12/23 23:59 23:59 23:59 Intake Total 150 / 150 1087.25 / 1087.25 150 / 150 Output Total 900 / 1000 1075 / 1475 600 / 600 Balance -750 / -850 12.25 / -387.75 -450 / -450 Lab / Micro Data 09/11/23 04:30 09/12/23 06:30 Labs: Laboratory Results - last 24 hr 09/11/23 11:55: POC Glucose 72 L 09/11/23 16:12: POC Glucose 182 H 09/11/23 22:37: POC Glucose 132 H 09/12/23 06:30: Sodium 142, Potassium 4.4, Chloride 112 H, Carbon Dioxide 27.0, BUN 44 H, Creatinine 1.03 H, Estim Creat Clear Calc 35.68, Est GFR (MDRD) Af Amer 65, Est GFR (MDRD) Non-Af 54 L, BUN/Creatinine Ratio 42.7 H, Glucose 82, Calcium 8.7, Phosphorus 2.5, Albumin 1.6 L Micro: Microbiology 09/06/23 14:39 Blood Culture (Wb) - Right Forearm Blood Culture - Final No growth in 5 days. 09/06/23 14:36 Blood Culture (Wb) - Right Hand Blood Culture - Final No growth in 5 days. 09/09/23 15:50 Stool Stool Occult Blood (ROYAL) - Final 09/07/23 18:20 Urine Catheter - [place] Legionella Antigen - Final 09/07/23 18:20 Urine Catheter - [place] Streptococcus pneumoniae Antigen (M - Final 09/06/23 15:50 Mucosa - Nose Respiratory Panel (PCR) - Final Influenza A (Subtype H3) Radiography Diagnostic Testing: Radiology Impression Chest X-Ray 09/11/23 08:13 IMPRESSION: Poor inspiration with some bibasilar atelectasis. Electronically Signed: Yosi Price MD at 8:43 EST , Rhythm Strip Rhythm Strip: Sinus Rhythm Rate: 95 Physical Exam Narrative Seen and examined. Shortness of breath is better. Her oxygen requirement increased to 4 L for last 2 days. Reason unclear. Chest x-ray portable ordered. Subjectively patient feels better. Unfortunately pre-CERT on 09/08 otherwise patient is ready for discharge to SNF. Denies chest pain pressure or tightness. On Tamiflu, last day for Influenza A came positive. Physical exam General: Awake, alert and oriented x 3. HEENT: Atraumatic, PERRLA, EOMI, Normocephalic Oral: Oral mucosa moist. Neck: Supple, No JVD, Negative Carotid Bruits Chest wall/Lungs: Air entry diminished in bilateral lung bases. Mild coarse crepitation in lung bases. Shortness of breath better. Cardiovascular: Regular rate, Regular Rhythm, Normal S1, Normal S2, No M/G/R Abdomen: Bowel Sounds Present, Soft, Non Tender, Non-Distended : No dysuria. No renal angle tenderness. No suprapubic tenderness. Extremities: Mild bilateral lower leg pitting edema, Capillary Refill Less than 3 Seconds Skin: No rashes, No breakdown Musculoskeletal: No Tenderness to Palpation of Joints or Extremities. ROM restricted. 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 Neurological: Cranial nerves II-XII grossly intact, DTR 2+/4. No acute focal neurological deficit. Psych/Mental Status: Flat affect. Const alert, oriented x3, no apparent distress and average body habitus General Appearance: cooperative, well kempt and well developed Orientation / Consciousness: awake, oriented to person, oriented to place and oriented to time HEENT normocephalic, head/scalp atraumatic, hearing grossly normal bilaterally and moist oral mucous membranes Eyes PERRL, EOMs intact bilaterally and conjunctivae normal Neck supple, no JVD, thyroid normal and no carotid bruits General: trachea midline Resp normal respiratory effort, no retractions and no use of accessory muscles Resp Narrative: Scattered expiratory rhonchi are noted Auscultation: rhonchi; Negative for rales or wheezes Cardio regular rate, regular rhythm, S1 normal heart sound, S2 normal heart sound, no murmurs, no rub and no gallops GI normal to inspection, nondistended, normoactive bowel sounds, soft to palpation, non-tender and non-distended Extremity no clubbing, cyanosis or edema Skin no rashes or lesions noted General Skin Exam: no breakdown Neuro oriented x3, CN's II-XII intact bilaterally, moves all extremities, no focal motor deficits and no sensory deficits noted Sensorium / Orientation: awake and alert Speech: speech normal Psych affect normal Assessment & Plan Assessment/Plan (1) Heart failure due to high blood pressure: (2) Non-STEMI (non-ST elevated myocardial infarction): PLAN: Plan 1. Acute myocardial injury probably secondary to hypoxia from exacerbation of COPD and bilateral carotid stenosis: Patient is being admitted in PCU. 2D echo shows EF 70% with no regional wall motion abnormalities therefore does not seem acute CT. Normal RV systolic function, normal left and right atria. Normal mitral valve, mild TR, PASP 30 mmHg. Patient had high troponin 1220, 1240 and 1161. Previous troponins were negative. The patient was evaluated by hand cultivator. Advised to continue home medications for chronic HFpEF, Coreg, l osartan and spironolactone. Lasix as needed. 09/08: Lasix, losartan and spironolactone are on hold due to BERNARDO. Patient on baby aspirin and Plavix. Patient does not have chest pain. Assistant Spa Manager has signed off on 09/04. Did not feel that she has CT due to atherosclerotic stenosis but due to heart failure and increased demand, type II. 09/09: Lasix 20 mg IV started 1 dose and probably home dose from tomorrow AM. 09/10: Home dose Lasix 40 mg resumed. Monitor electrolytes. 2. Acute hypoxic and hypercarbic combined respiratory failure due to acute COPD exacerbation due to multifocal pneumonia from influenza A. Early bacterial secondary infection:-patient is on aerosol treatments and is receiving IV Decadron, monitor pulse ox. Continue PT and OT 09/06/2023: Acute hypoxic respiratory failure due to COPD exacerbation and evolving right lower lobe, right upper lobe and left lower lobe multifocal pneumonia: Patient required 8 L of high flow oxygen in the morning. As per the nursing staff, she was also coughing was wet, tannish colored expectorate yesterday but not able to bring up any phlegm today. Repeat chest x-ray PA and lateral was done and individually reviewed. It shows evolving right lower lobe infiltrate, right upper lobe and left lower lobe infiltrate consistent with mul tifocal pneumonia. Started on IV Zosyn to cover for gram-positive, gram- negative and anaerobes. Pneumonia workup ordered. Discussed with the patient's daughter near the bedside. Patient is being managed on scheduled bronchodilator, steroid, Mucinex, incentive spirometry and Pep. BiPAP as needed 09/07: Patient got short of breath yesterday and continued overnight with increased oxygen requirement. ABG showed pH 7.33/pCO2 51/O2 69 seems on 7 L of oxygen. Patient was given Ativan 0.5 mg so that she can tolerate BiPAP. Influenza A, subtype H3 positive. Started on Tamiflu. Low-dose mirtazapine ordered from night. 09/08: Subjectively and objectively, shortness of breath/dyspnea has improved. Oxygen requirement improved from BiPAP to nasal cannula 4 L. Urinary antigens are negative. Continue above antibiotic. 09/09: Respiratory status is much improved. On 1 L of oxygen. Advised to continue incentive spirometry and PEP for 1 week 09/10: Patient today on 4 L of oxygen. 09/11: Repeat chest x-ray was done which shows no significant interstitial edema. Shows poor inspiration with bibasilar atelectasis. Normal mediastinum and hilar. Will keep Lasix 40 mm daily and aggressive bronchopulmonary hygiene. #3 spinal stenosis with right radicular pain and debility- PT and OT, patient remains on gabapentin, IV Decadron, and narcotics as needed for pain, again she is a poor surgical candidate to have any surgery done at this institution due to her comorbidities. Hospitalist colleague Dr. Chuck Joshua discussed with the patient's son and advised to follow-up in tertiary care to spine surgeon to evaluate for surgery. 09/06: Patient on IV dexamethasone, decreased to 4 mg every 8 hourly 09/07: Decrease IV dexamethasone to 2 mg every 12 hourly. 5. Hypotension: Patient blood pressure in a.m. was 87/48 and Coreg was held. Later on BP improved to 118/85 and had Lasix, Aldactone and Cozaar which brought down the blood pressure down again 89/35, 90/32. Discussed with the nursing staff, space out all Lasix and Cozaar. Cozaar dose decreased 25 mg daily and switch to the evening time. 09/06: Blood pressure was also borderline but carvedilol dose decreased to 6.25 mg twice daily. 09/09: Blood pressure fluctuates. BP morning 154/55 currently 105/51 probably du e to morning medication of carvedilol. 6. BERNARDO and hyperkalemia probably due to diuretic, spironolactone and potassium supplement: Patient on furosemide, potassium supplement and spironolactone which is temporarily held. Her baseline creatinine about 1.2 increased to 1.76. IV fluid low-dose 50 mill per hour for 1 L. Repeat labs tomorrow AM. 09/07: Creatinine seems better creatinine 1.5 BUN 90. Serum potassium 6.0. Repeat BMP ordered and pending. 09/08: Serum potassium 5.4. BUN/creatinine 68/1.31. Shows improvement. 09/09: Creatinine 1.37. Continue to hold losartan and spironolactone. Potassium 5.1. 09/11: Creatinine 1.24. Potassium level normal. 7. Severe anemia with history of chronic anemia from CKD/anemia of chronic disease: Hemoglobin decreased from 8.5-7.5. Her baseline creatinine runs between 9 to 10 g. Will discontinue heparin subcu. H&H at 8 PM and if less than 7 g will need transfusion. 09/09: Hemoglobin improved to 8.3. 09/10: Hemoglobin 7.7. Her iron studies from August 2022 shows ferritin 640, iron 95, TIBC 180 and iron saturation 52%. Consistent with anemia of chronic disease. Anxiety and depression: Patient had agitation to 3 days ago. Started on mirt azapine 15 mg daily. 09/10: Patient was more lethargic and weak. Dose of mirtazapine decreased to 7.5 mg daily. Ativan dose decreased to 0.25 mg IV as needed if needed for BiPAP. Gabapentin dose decreased to 100 mg 3 times daily DVT prophylaxis: Patient was on heparin 500 subcutaneous twice daily. Had increased bleeding locally after subcu injection. Hemoglobin also dropped as mentioned above. Therefore heparin subcu DVT dose discontinued. Patient on aspirin and Plavix. Microbiology Past 72 Hours 09/09/23 15:50 Stool Stool Occult Blood ([facility]) - Final 09/06/23 14:39 Blood Culture (Wb) - Right Forearm Blood Culture - Preliminary No growth in 48 hours. 09/06/23 14:36 Blood Culture (Wb) - Right Hand Blood Culture - Preliminary No growth in 48 hours. Laboratory Results 09/10/23 10:25: POC Glucose 149 H 09/10/23 11:46: POC Glucose 191 H 09/10/23 16:22: POC Glucose 120 H 09/10/23 22:45: POC Glucose 131 H 09/11/23 04:30: WBC 6.3, RBC 2.36 L, Hgb 7.7 L, Hct 24.7 L, MCV 104.7 H, MCH 32.6 H, MCHC 31.2 L, RDW Std Deviation 65.4 H, RDW Coeff of Ha 17.2 H, Plt Count 131 L, MPV 10.6, Immature Gran % (Auto) 10.900 H, Neut % (Auto) 72.1 H, Lymph % (Auto) 9.0 L, [place] % (Auto) 4.8, Eos % (Auto) 2.9, Baso % (Auto) 0.3, Absolute Neuts (auto) 4.5, Absolute Lymphs (auto) 0.56 L, Nucleated RBC % 0.5, Differential Comment SCANNED, Diff Path Review November foll, Anisocytosis 2+, Sodium 146 H, Potassium 4.1, Chloride 112 H, Carbon Dioxide 32.0, Anion Gap 2 L, BUN 58 H, Creatinine 1.24 H, Estim Creat Clear Calc 29.64, Est GFR (MDRD) Af Amer 53 L, Est GFR (MDRD) Non-Af 44 L, BUN/Creatinine Ratio 46.8 H, Glucose 83, Calcium 8.4 L 09/11/23 07:39: POC Glucose 73 L
[2023-09-12] MEDS: Insulin Lispro 100 UNIT/ML INSULN.PEN SC (11:28)
[2023-09-12 11:50] LABS: Bedside Glucose 159 mg/dL (74-106)
[2023-09-12 11:50] LABS: Bedside Glucose 91 mg/dL (74-106)
--- NOTE | 2023-09-12 13:01 | PN.RENAL_ITS ---
Subjective Subjective no new events Objective Data Objective Data Vital Signs: Vital Signs Temp Pulse Resp BP Pulse Ox O2 Del Method O2 Flow Rate 98 F 88 20 H 124/48 H 98 Nasal Cannula 4 09/12/23 08:31 09/12/23 08:31 09/12/23 08:31 09/12/23 08:31 09/12/23 10:29 09/12/23 10:00 09/12/23 10:29 FiO2 30 09/10/23 04:25 Oxygen Flow Rate (L/min) 4 Oxygen Delivery Method Nasal Cannula Weight: 66.361 kg Body Mass Index (BMI) 26.7 Intake & Output: Intake and Output for Last 24 Hours 09/10/23 09/11/23 09/12/23 23:59 23:59 23:59 Intake Total 150 / 150 1087.25 / 1087.25 200 / 200 Output Total 900 / 1000 1075 / 1475 600 / 600 Balance -750 / -850 12.25 / -387.75 -400 / -400 Lab / Micro Data 09/11/23 04:30 09/12/23 06:30 Labs: Laboratory Results - last 24 hr 09/11/23 16:12: POC Glucose 182 H 09/11/23 22:37: POC Glucose 132 H 09/12/23 06:30: Sodium 142, Potassium 4.4, Chloride 112 H, Carbon Dioxide 27.0, BUN 44 H, Creatinine 1.03 H, Estim Creat Clear Calc 35.68, Est GFR (MDRD) Af Amer 65, Est GFR (MDRD) Non-Af 54 L, BUN/Creatinine Ratio 42.7 H, Glucose 82, Calcium 8.7, Phosphorus 2.5, Albumin 1.6 L 09/12/23 08:08: POC Glucose 91 09/12/23 11:26: POC Glucose 159 H Micro: Microbiology 09/06/23 14:39 Blood Culture (Wb) - Right Forearm Blood Culture - Final No growth in 5 days. 09/06/23 14:36 Blood Culture (Wb) - Right Hand Blood Culture - Final No growth in 5 days. 09/09/23 15:50 Stool Stool Occult Blood ([facility]) - Final 09/07/23 18:20 Urine Catheter - [place] Legionella Antigen - Final 09/07/23 18:20 Urine Catheter - [place] Streptococcus pneumoniae Antigen (M - Final 09/06/23 15:50 Mucosa - Nose Respiratory Panel (PCR) - Final Influenza A (Subtype H3) Rhythm Strip Rhythm Strip: Sinus Rhythm Rate: 95 Physical Exam Narrative alert and oriented x 3 S1S2 RRR lungs sounds coarse anteriorly no pitting edema Abdomen soft, nontender turner with clear yellow urine in bag Assessment & Plan Assessment/Plan (1) Hyperkalemia: (2) CKD (chronic kidney disease), stage III: (3) Acute hypoxic respiratory failure: PLAN: Plan Impression/Plan: This is an 87-year-old female with past medical history significant for hypertension, CKD, history of left kidney stone requiring cystoscopy, left ureteroscopy, stent placement and lithotripsy in 2011 who was admitted to the hospital on 09/03/2023 after presenting with complaints of shortness of breath. The patient is being treated for acute hypoxic respiratory failure from COPD exacerbation, pneumonia and influenza A. Nephrology is following for BERNARDO on CKD and hyperkalemia. BERNARDO on CKD stage G3a. Baseline serum creatinine is around 1.30 mg/dL. Serum creatinine increased to 1.50 mg/dL on 09/07/2023. BERNARDO is likely due to decreased BP/EBV. She was also on ARB, spironolactone and furosemide prior to admission. Since 09/07/2023, renal function has overall improved with latter-day of BP. cr better Hyperkalemia. resolved
--- NOTE | 2023-09-12 13:26 | PCM.TXEXTCAR ---
Diet Diet Order/Speech Therapy: 09/11/23 13:53 Diet: Regular - General Food consistency:: Mechanical (Minced/Moist) Liquid Consistency:: Regular/Thin Dietary Modifications:: Potassium Restricted Is pt able to select menu?: Yes Diet Comments: with use of compensatory strategies Routine Orders/Code Status Suppository Type: Dulcolax 10mg Suppository Frequency: Daily PRN Code Status: Full Code Therapies Weight Bearing: Weight bearing as tolerated Extremity Affected:: Bilateral Lower Physical Therapy: Eval and Treat Occupational Therapy: Eval and Treat Speech Therapy: Eval and Treat Problem/Diagnosis (1) Hyperkalemia: Status: Acute Code(s): E87.5 - Hyperkalemia (2) CKD (chronic kidney disease), stage III: Status: Chronic Code(s): N18.30 - Chronic kidney disease, stage 3 unspecified (3) Acute hypoxic respiratory failure: Status: Acute Code(s): J96.01 - Acute respiratory failure with hypoxia Plan 1. Acute myocardial injury probably secondary to hypoxia from exacerbation of COPD and bilateral carotid stenosis: Patient is being admitted in PCU. 2D echo shows EF 70% with no regional wall motion abnormalities therefore does not seem acute IL. Normal RV systolic function, normal left and right atria. Normal mitral valve, mild TR, PASP 30 mmHg. Patient had high troponin 1220, 1240 and 1161. Previous troponins were negative. The patient was evaluated by sheriffs officer. Advised to continue home medications for chronic HFpEF, Coreg, losartan and spironolactone. Lasix as needed. 09/08: Lasix, losartan and spironolactone are on hold due to BERNARDO. Patient on baby aspirin and Plavix. Patient does not have chest pain. [employer] has signed off on 09/04. Did not feel that she has IL due to atherosclerotic stenosis but due to heart failure and increased demand, type II. 09/09: Lasix 20 mg IV started 1 dose and probably home dose from tomorrow AM. 09/10: Home dose Lasix 40 mg resumed. Monitor electrolytes. 2. Acute hypoxic and hypercarbic combined respiratory failure due to acute COPD exacerbation due to multifocal pneumonia from influenza A. Early bacterial secondary infection:-patient is on aerosol treatments and is receiving IV Decadron, monitor pulse ox. Continue PT and OT 09/06/2023: Acute hypoxic respiratory failure due to COPD exacerbation and evolving right lower lobe, right upper lobe and left lower lobe multifocal pneumonia: Patient required 8 L of high flow oxygen in the morning. As per the nursing staff, she was also coughing was wet, tannish colored expectorate yesterday but not able to bring up any phlegm today. Repeat chest x-ray PA and lateral was done and individually reviewed. It shows evolving right lower lobe infiltrate, right upper lobe and left lower lobe infiltrate consistent with multifocal pneumonia. Started on IV Zosyn to cover for gram-positive, gram-negative and anaerobes. Pneumonia workup ordered. Discussed with the patient's daughter near the bedside. Patient is being managed on scheduled bronchodilator, steroid, Mucinex, incentive spirometry and Pep. BiPAP as needed 09/07: Patient got short of breath yesterday and continued overnight with increased oxygen requirement. ABG showed pH 7.33/pCO2 51/O2 69 seems on 7 L of oxygen. Patient was given Ativan 0.5 mg so that she can tolerate BiPAP. Influenza A, subtype H3 positive. Started on Tamiflu. Low-dose mirtazapine ordered from night. 09/08: Subjectively and objectively, shortness of breath/dyspnea has improved. Oxygen requirement improved from BiPAP to nasal cannula 4 L. Urinary antigens are negative. Continue above antibiotic. 09/09: Respiratory status is much improved. On 1 L of oxygen. Advised to continue incentive spirometry and PEP for 1 week 09/10: Patient today on 4 L of oxygen. 09/11: Repeat chest x-ray was done which shows no significant interstitial edema. Shows poor inspiration with bibasilar atelectasis. Normal mediastinum and hilar. Will keep Lasix 40 mm daily and aggressive bronchopulmonary hygiene. #3 spinal stenosis with right radicular pain and debility- PT and OT, patient remains on gabapentin, IV Decadron, and narcotics as needed for pain, again she is a poor surgical candidate to have any surgery done at this institution due to her comorbidities. Hospitalist colleague Dr. Chuck Joshua discussed with the patient's son and advised to follow-up in tertiary care to spine surgeon to evaluate for surgery. 09/06: Patient on IV dexamethasone, decreased to 4 mg every 8 hourly 09/07: Decrease IV dexamethasone to 2 mg every 12 hourly. 5. Hypotension: Patient blood pressure in a.m. was 87/48 and Coreg was held. Later on BP improved to 118/85 and had Lasix, Aldactone and Cozaar which brought down the blood pressure down again 89/35, 90/32. Discussed with the nursing staff, space out all Lasix and Cozaar. Cozaar dose decreased 25 mg daily and switch to the evening time. 09/06: Blood pressure was also borderline but carvedilol dose decreased to 6.25 mg twice daily. 09/09: Blood pressure fluctuates. BP morning 154/55 currently 105/51 probably due to morning medication of carvedilol. 6. BERNARDO and hyperkalemia probably due to diuretic, spironolactone and potassium supplement: Patient on furosemide, potassium supplement and spironolactone which is temporarily held. Her baseline creatinine about 1.2 increased to 1.76. IV fluid low-dose 50 mill per hour for 1 L. Repeat labs tomorrow AM. 09/07: Creatinine seems better creatinine 1.5 BUN 90. Serum potassium 6.0. Repeat BMP ordered and pending. 09/08: Serum potassium 5.4. BUN/creatinine 68/1.31. Shows improvement. 09/09: Creatinine 1.37. Continue to hold losartan and spironolactone. Potassium 5.1. 09/11: Creatinine 1.24. Potassium level normal. 7. Severe anemia with history of chronic anemia from CKD/anemia of chronic disease: Hemoglobin decreased from 8.5-7.5. Her baseline creatinine runs between 9 to 10 g. Will discontinue heparin subcu. H&H at 8 PM and if less than 7 g will need transfusion. 09/09: Hemoglobin improved to 8.3. 09/10: Hemoglobin 7.7. Her iron studies from August 2022 shows ferritin 640, iron 95, TIBC 180 and iron saturation 52%. Consistent with anemia of chronic disease. Anxiety and depression: Patient had agitation to 3 days ago. Started on mirtazapine 15 mg daily. 09/10: Patient was more lethargic and weak. Dose of mirtazapine decreased to 7.5 mg daily. Ativan dose decreased to 0.25 mg IV as needed if needed for BiPAP. Gabapentin dose decreased to 100 mg 3 times daily DVT prophylaxis: Patient was on heparin 500 subcutaneous twice daily. Had increased bleeding locally after subcu injection. Hemoglobin also dropped as mentioned above. Therefore heparin subcu DVT dose discontinued. Patient on aspirin and Plavix. Microbiology Past 72 Hours 09/09/23 15:50 Stool Stool Occult Blood (ROYAL) - Final 09/06/23 14:39 Blood Culture (Wb) - Right Forearm Blood Culture - Preliminary No growth in 48 hours. 09/06/23 14:36 Blood Culture (Wb) - Right Hand Blood Culture - Preliminary No growth in 48 hours. Laboratory Results 09/10/23 10:25: POC Glucose 149 H 09/10/23 11:46: POC Glucose 191 H 09/10/23 16:22: POC Glucose 120 H 09/10/23 22:45: POC Glucose 131 H 09/11/23 04:30: WBC 6.3, RBC 2.36 L, Hgb 7.7 L, Hct 24.7 L, MCV 104.7 H, MCH 32.6 H, MCHC 31.2 L, RDW Std Deviation 65.4 H, RDW Coeff of Ha 17.2 H, Plt Count 131 L, MPV 10.6, Immature Gran % (Auto) 10.900 H, Neut % (Auto) 72.1 H, Lymph % (Auto) 9.0 L, K[place]haw % (Auto) 4.8, Eos % (Auto) 2.9, Baso % (Auto) 0.3, Absolute Neuts (auto) 4.5, Absolute Lymphs (auto) 0.56 L, Nucleated RBC % 0.5, Differential Comment SCANNED, Diff Path Review May foll, Anisocytosis 2+, Sodium 146 H, Potassium 4.1, Chloride 112 H, Carbon Dioxide 32.0, Anion Gap 2 L, BUN 58 H, Creatinine 1.24 H, Estim Creat Clear Calc 29.64, Est GFR (MDRD) Af Amer 53 L, Est GFR (MDRD) Non-Af 44 L, BUN/Creatinine Ratio 46.8 H, Glucose 83, Calcium 8.4 L 09/11/23 07:39: POC Glucose 73 L Allergies/Procedures Done in Hospital Allergies lisinopril Allergy (Verified 09/03/23 09:41) edema aspirin Adverse Reaction (Verified 09/03/23 09:41) Upset Stomach Type of Care/Length of Stay Estimated LOS: Convalescent Care Less Than 30 days Type of Care Needed: Skilled Rehab Potential: Good Prognosis: Good Additional Orders/Day of Discharge Day of Discharge: 09/12/23 Dietary and Speech Recommendations Dietitian Recommendations/Changes: Continue Cardiac diet to manage medical conditions. Continue ensure compact BID with breakfast and dinner meals. Discharge Plan Admission Admit Date/Time: 09/03/23 13:07 Primary Reason for Your Visit: Acute hypoxic respiratory failure, pneumonia Attending Provider: Juan Esteves Primary Care Provider: Anu Mortensen Consulting Providers: Dudley Thompson; Chuck Reynolds; Alisia Lawrence Discharge Orders/Prescriptions Prescriptions: New polyethylene glycol 3350 17 gram Powder In Packet 17 g PO DAILY Qty: 0 0RF sennosides-docusate sodium [Stool Softener-Stimulant Laxat] 8.6-50 mg Tablet 2 tab PO BID PRN (Reason: constipation) Qty: 0 0RF pantoprazole 40 mg Tablet,Delayed Release (Dr/Ec) 40 mg PO DAILY 30 Days Qty: 30 0RF ferrous sulfate [FeroSul] 325 mg (65 mg iron) Tablet 325 mg PO QODAY@LUNCH Qty: 0 0RF Mucinex DM 30-600 mg Tablet Extended Release 12 Hr 2 tab PO BID 7 Days Qty: 0 0RF aspirin 81 mg Tablet,Delayed Release (Dr/Ec) 81 mg PO BREAKFAST 30 Days Qty: 30 2RF insulin lispro [Humalog KwikPen Insulin] 100 unit/mL Insulin Pen See Protocol subcut ACHS Qty: 0 0RF Protocol: 4. Sliding Scale Insulin High-Med Dosing Condition: 150-199 mg/dl = 2 units Condition: 200-259 mg/dl = 4 units Condition: 260-324 mg/dl = 6 units Condition: 325-374 mg/dl = 8 units Condition: 375-409 mg/dl = 10 units Condition: 410-449 mg/dl = 11 units Condition: Greater than 449 call physician Protocol Text: - Use for Total Daily Dose of Insulin 56-80 units - Patient who are insulin resistant or septic HIGH MEDIUM DOSING ALGORITHM insulin lispro [Humalog KwikPen Insulin] 100 unit/mL Insulin Pen 10 unit subcut TIDAC Qty: 0 0RF insulin glargine [Lantus Solostar U-100 Insulin] 100 unit/mL (3 mL) insulin pen 15 unit subcut DAILY Qty: 15 2RF Rx Instructions: Hold if glucose less than 130 mg/dl dexamethasone 2 mg tablet See Rx Instructions .ROUTE .COMPLEX Qty: 12 0RF Rx Instructions: 2 mg orally twice daily for 3 days and then 2 mg once daily for 3 days, then 1 mg for 6 days and then stop Continued cholecalciferol (vitamin D3) 1,000 unit tablet 2,500 unit PO DAILY albuterol sulfate 2.5 mg /3 mL (0.083 %) solution for nebulization 2.5 mg inhalation Q4H PRN (Reason: shortness of breath or wheezing) ipratropium-albuterol 0.5 mg-3 mg(2.5 mg base)/3 mL solution for nebulization 3 ml inhalation Q6H PRN (Reason: shortness of breath) duloxetine 30 mg capsule,delayed release(DR/EC) 30 mg PO BID atorvastatin 40 MG tablet 40 mg PO QHS clopidogrel 75 MG tablet 75 mg PO DAILY multivitamin with folic acid 1 TABLET tablet 1 tab PO DAILY albuterol sulfate 90 mcg/actuation HFA aerosol inhaler 2 puff INHALATION BID PRN (Reason: shortness of breath or wheezing) pramipexole 1.5 mg tablet 1.5 mg PO QHS diclofenac sodium 1 % gel 1 inch TOPICAL DAILY PRN (Reason: unknown) Patient Comments: pt using, but unaware of directions furosemide 40 mg tablet 40 mg PO DAILY Qty: 90 3RF Hold Instructions: Hold for 2 days. carvedilol 12.5 mg tablet 12.5 mg PO BID Qty: 180 4RF Rx Instructions: must administer with a meal/food Changed budesonide 0.5 mg/2 mL suspension for nebulization 0.25 mg inhalation BID 30 Days Qty: 0 0RF losartan 50 mg tablet 25 mg PO DAILY Qty: 90 3RF Rx Instructions: Hold for SBP less than 130 mmHg Discontinued spironolactone 25 MG tablet 25 mg PO DAILY Hold Instructions: Hold until serum potassium drops to 4.0. dexamethasone 6 mg tablet 6 mg PO DAILY Qty: 7 0RF Hold Instructions: duplicate Patient Comments: states was to start this am prednisone 10 mg tablet 10 mg PO DAILY Patient Comments: pt was supposed to start this morning, was not able to Referrals / Follow Up: Shamir Delvalle DO [Med Staff - Active Staff] - Within 1 Month (Hypoxia, Pneumonia) Alisia Lawrence MD [Med Staff - Consulting] - Within 1 Month Anu Mortensen MD [Primary Care Provider] - Dudley Thompson MD [Med Staff - Active Staff] - Within 1 Month Disposition Disposition (needs filled in before D/C Order can be placed): [facility]
--- NOTE | 2023-09-12 13:42 | DS.PCM_ITS ---
Providers Date of Admission: 09/03/23 Date of Discharge: 09/12/23 Primary Care Physician: Dr. Anu Mortensen MD Consultations 09/03/23 13:29 Consult: Cardiology Routine Consulting Provider: Dudley Thompsno Reason for Consult: NSTEMI EMERGENT Consult: No Notified: Yes Date Notified: 09/03/23 Time Notified: 13:17 Method of Notification: Verbal 09/07/23 12:12 Consult: Nephrology Routine Consulting Provider: Alisia Lawrence Reason for Consult: BERNARDO on CKD, hyperkalemia, diuretics DCed EMERGENT Consult: No Notified: Yes Date Notified: 09/07/23 Time Notified: 12:12 Method of Notification: Verbal Reason For Visit: NON-STEMI, EXACERBATION OF COPD, INTRACTABLE RIGHT Diagnosis Discharge Diagnosis (1) Hyperkalemia: Status: Acute Code(s): E87.5 - Hyperkalemia (2) CKD (chronic kidney disease), stage III: Status: Chronic Code(s): N18.30 - Chronic kidney disease, stage 3 unspecified (3) Acute hypoxic respiratory failure: Status: Acute Code(s): J96.01 - Acute respiratory failure with hypoxia Plan 1. Acute myocardial injury probably secondary to hypoxia from exacerbation of COPD and bilateral carotid stenosis, non-STEMI ruled out.: Patient is being admitted in PCU. 2D echo shows EF 70% with no regional wall motion abnormalities therefore does not seem acute PA. Normal RV systolic function, normal left and right atria. Normal mitral valve, mild TR, PASP 30 mmHg. Patient had high troponin 1220, 1240 and 1161. Previous troponins were negative. The patient was evaluated by buckle attacher and felt that it was not non-STEMI but increased cardiac demand from heart failure and COPD exacerbation. Advised to continue home medications for chronic HFpEF, Coreg, losartan and spironolactone. Lasix as needed. 09/08: Lasix, losartan and spironolactone are on hold due to BERNARDO. Patient on baby aspirin and Plavix. Patient does not have chest pain. 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 Did not feel that she has PA due to atherosclerotic stenosis but due to heart failure and increased demand, type II. 09/09: Lasix 20 mg IV started 1 dose and probably home dose from tomorrow AM. 09/10: Home dose Lasix 40 mg resumed. Monitor electrolytes. 09/11: Patient discharged on Lasix 40 mg daily and low-dose losartan. 2. Acute hypoxic and hypercarbic combined respiratory failure due to acute COPD exacerbation due to multifocal pneumonia from influenza A. Early bacterial secondary infection:-patient is on aerosol treatments and is receiving IV Decadron, monitor pulse ox. Continue PT and OT 09/06/2023: Acute hypoxic respiratory failure due to COPD exacerbation and evolving right lower lobe, right upper lobe and left lower lobe multifocal pneumonia: Patient required 8 L of high flow oxygen in the morning. As per the nursing staff, she was also coughing was wet, tannish colored expectorate yesterday but not able to bring up any phlegm today. Repeat chest x-ray PA and lateral was done and individually reviewed. It shows evolving right lower lobe infiltrate, right upper lobe and left lower lobe infiltrate consistent with multifocal pneumonia. Started on IV Zosyn to cover for gram-positive, gram- negative and anaerobes. Pneumonia workup ordered. Discussed with the patient's daughter near the bedside. Patient is being managed on scheduled bronchodil ator, steroid, Mucinex, incentive spirometry and Pep. BiPAP as needed 09/07: Patient got short of breath yesterday and continued overnight with increased oxygen requirement. ABG showed pH 7.33/pCO2 51/O2 69 seems on 7 L of oxygen. Patient was given Ativan 0.5 mg so that she can tolerate BiPAP. Inf luenza A, subtype H3 positive. Started on Tamiflu. Low-dose mirtazapine o rdered from night. 09/08: Subjectively and objectively, shortness of breath/dyspnea has improved. Oxygen requirement improved from BiPAP to nasal cannula 4 L. Urinary antigens are negative. Continue above antibiotic. 09/09: Respiratory status is much improved. On 1 L of oxygen. Advised to continue incentive spirometry and PEP for 1 week 09/10: Patient today on 4 L of oxygen. 09/11: Repeat chest x-ray was done which shows no significant interstitial edema. Shows poor inspiration with bibasilar atelectasis. Normal mediastinum and hilar. Will keep Lasix 40 mm daily and aggressive bronchopulmonary hygiene. #3 spinal stenosis with right radicular pain and debility- PT and OT, patient remains on gabapentin, IV Decadron, and narcotics as needed for pain, again she is a poor surgical candidate to have any surgery done at this institution due to her comorbidities. Hospitalist colleague Dr. Chuck Joshua discussed with the patient's son and advised to follow-up in tertiary care to spine surgeon to evaluate for surgery. 09/06: Patient on IV dexamethasone, decreased to 4 mg every 8 hourly 09/07: Decrease IV dexamethasone to 2 mg every 12 hourly. 09/11: Patient discharged on dexamethasone tapering dose. 5. Hypotension: Patient blood pressure in a.m. was 87/48 and Coreg was held. Later on BP improved to 118/85 and had Lasix, Aldactone and Cozaar which brought down the blood pressure down again 89/35, 90/32. Discussed with the nursing staff, space out all Lasix and Cozaar. Cozaar dose decreased 25 mg daily and switch to the evening time. 09/06: Blood pressure was also borderline but carvedilol dose decreased to 6.25 mg twice daily. 09/09: Blood pressure fluctuates. BP morning 154/55 currently 105/51 probably due to morning medication of carvedilol. 09/12: Hypotension has resolved. 6. BERNARDO and hyperkalemia probably due to diuretic, spironolactone and potassium supplement: Patient on furosemide, potassium supplement and spironolactone which is temporarily held. Her baseline creatinine about 1.2 increased to 1.76. IV fluid low-dose 50 mill per hour for 1 L. Repeat labs tomorrow AM. 09/07: Creatinine seems better creatinine 1.5 BUN 90. Serum potassium 6.0. Repeat BMP ordered and pending. 09/08: Serum potassium 5.4. BUN/creatinine 68/1.31. Shows improvement. 09/09: Creatinine 1.37. Continue to hold losartan and spironolactone. Potassium 5.1. 09/11: Creatinine 1.24. Potassium level normal. 09/12: Creatinine 1.03 BUN 44. Losartan 25 mg daily started. Lasix 40 mg daily. Spironolactone discontinued as it was held during the hospital stay. Serum potassium 4.4. Serum sodium 142. 7. Severe anemia with history of chronic anemia from CKD/anemia of chronic disease: Hemoglobin decreased from 8.5-7.5. Her baseline creatinine runs between 9 to 10 g. Will discontinue heparin subcu. H&H at 8 PM and if less than 7 g will need transfusion. 09/09: Hemoglobin improved to 8.3. 09/10: Hemoglobin 7.7. Her iron studies from August 2022 shows ferritin 640, iron 95, TIBC 180 and iron saturation 52%. Consistent with anemia of chronic disease. 09/11: Hemoglobin is low. Hold baby aspirin if hemoglobin less than 8 g. Anxiety and depression: Patient had agitation to 3 days ago. Started on mirtazapine 15 mg daily. 09/10: Patient was more lethargic and weak. Dose of mirtazapine decreased to 7.5 mg daily. Ativan dose decreased to 0.25 mg IV as needed if needed for BiPAP. Gabapentin dose decreased to 100 mg 3 times daily DVT prophylaxis: Patient was on heparin 500 subcutaneous twice daily. Had increased bleeding locally after subcu injection. Hemoglobin also dropped as mentioned above. Therefore heparin subcu DVT dose discontinued. Patient on aspirin and Plavix. Discharge medication reconciliation done. Discharge follow-up instructions completed. Discharge process discussed with the patient and all questions were answered to patient's satisfaction. Discharge to SNF. Follow with PCP in 1 to 2 weeks Total time spent, exact 35 minutes on discharge meds reconciliation, examination, coordination of care with nurses and ancillary staff, review of im aging and blood test and discussion with the patient on follow-up instructions. Microbiology Past 72 Hours 09/09/23 15:50 Stool Stool Occult Blood (ROYAL) - Final 09/06/23 14:39 Blood Culture (Wb) - Right Forearm Blood Culture - Preliminary No growth in 48 hours. 09/06/23 14:36 Blood Culture (Wb) - Right Hand Blood Culture - Preliminary No growth in 48 hours. Laboratory Results 09/10/23 10:25: POC Glucose 149 H 09/10/23 11:46: POC Glucose 191 H 09/10/23 16:22: POC Glucose 120 H 09/10/23 22:45: POC Glucose 131 H 09/11/23 04:30: WBC 6.3, RBC 2.36 L, Hgb 7.7 L, Hct 24.7 L, MCV 104.7 H, MCH 32.6 H, MCHC 31.2 L, RDW Std Deviation 65.4 H, RDW Coeff of Ha 17.2 H, Plt Count 131 L, MPV 10.6, Immature Gran % (Auto) 10.900 H, Neut % (Auto) 72.1 H, Lymph % (Auto) 9.0 L, [place] % (Auto) 4.8, Eos % (Auto) 2.9, Baso % (Auto) 0.3, Absolute Neuts (auto) 4.5, Absolute Lymphs (auto) 0.56 L, Nucleated RBC % 0.5, Differential Comment SCANNED, Diff Path Review May foll, Anisocytosis 2+, Sodium 146 H, Potassium 4.1, Chloride 112 H, Carbon Dioxide 32.0, Anion Gap 2 L, BUN 58 H, Creatinine 1.24 H, Estim Creat Clear Calc 29.64, Est GFR (MDRD) Af Amer 53 L, Est GFR (MDRD) Non-Af 44 L, BUN/Creatinine Ratio 46.8 H, Glucose 83, Calcium 8.4 L 09/11/23 07:39: POC Glucose 73 L Medications at Discharge Home Medications atorvastatin 40 mg tablet 40 mg PO QHS cholesterol 02/22/16 clopidogrel 75 mg tablet 75 mg PO DAILY BLOOD THINNER 02/22/16 multivitamin with folic acid 400 mcg tablet 1 tab PO DAILY supplement 02/22/16 albuterol sulfate 90 mcg/actuation aerosol inhaler 2 puff inhalation BID PRN shortness of breath or wheezing 03/16/18 cholecalciferol (vitamin D3) 25 mcg (1,000 unit) tablet 2,500 unit PO DAILY SUPPLEMENT 10/09/18 furosemide 40 mg tablet 40 mg PO DAILY FLUID RETENTION #90 tabs 01/27/22 albuterol sulfate 2.5 mg/3 mL (0.083 %) solution for nebulization 2.5 mg inhalation Q4H PRN shortness of breath or wheezing 05/28/22 ipratropium 0.5 mg-albuterol 3 mg (2.5 mg base)/3 mL nebulization soln 3 ml inhalation Q6H PRN shortness of breath 05/28/22 carvedilol 12.5 mg tablet 12.5 mg PO BID CHOLESTEROL #180 tabs 04/27/23 duloxetine 30 mg capsule,delayed release 30 mg PO BID pain 08/17/23 pramipexole 1.5 mg tablet 1.5 mg PO QHS restless leg syndrome 08/18/23 diclofenac sodium 1 % topical gel 1 inch topical DAILY PRN unknown 09/03/23 aspirin 81 mg tablet,delayed release 81 mg PO BREAKFAST 30 days #30 tabs 09/09/23 budesonide 0.5 mg/2 mL suspension for nebulization 0.25 mg inhalation BID 30 days #0 mL 09/09/23 dexamethasone 2 mg tablet See Rx Instructions .Route .COMPLEX #12 tabs 09/09/23 dextromethorphan-guaifenesin 30 mg-600 mg tablet extended [id number] hr (Mucinex DM) 2 tab PO BID 7 days #0 tabs 09/09/23 ferrous sulfate 325 mg (65 mg iron) tablet (FeroSul) 325 mg PO QODAY@LUNCH #0 tabs 09/09/23 insulin glargine 100 unit/mL (3 mL) subcutaneous pen (Lantus Solostar U-100 Insulin) 15 unit (0.15 mL) subcut DAILY #15 mL 09/09/23 insulin lispro 100 unit/mL subcutaneous pen (Humalog KwikPen (U-100) Insulin) 10 unit (0.1 mL) subcut TIDAC #0 mL 09/09/23 insulin lispro 100 unit/mL subcutaneous pen (Humalog KwikPen (U-100) Insulin) See Protocol subcut ACHS #0 mL 09/09/23 pantoprazole 40 mg tablet,delayed release 40 mg PO DAILY 30 days #30 tabs 09/09/23 polyethylene glycol 3350 17 gram oral powder packet 17 g PO DAILY #0 ea 09/09/23 sennosides 8.6 mg-docusate sodium 50 mg tablet (Stool Softener-Stimulant Laxative) 2 tab PO BID PRN constipation #0 tabs 09/09/23 losartan 50 mg tablet 25 mg (1/2 x 50 mg) PO DAILY BLOOD PRESSURE #90 tabs 09/12/23 Physical Exam Narrative Seen and examined. Shortness of breath is better. Patient on 4 L of oxygen for last 3 days. Chest x-ray shows interstitial markings but does not look like mediastinal or hilar edema/interstitial edema. Subjectively patient feels better. Denies chest pain pressure or tightness. Completed Tamiflu for influenza A yesterday. Physical exam General: Awake, alert and oriented x 3. HEENT: Atraumatic, PERRLA, EOMI, Normocephalic Oral: Oral mucosa moist. Neck: Supple, No JVD, Negative Carotid Bruits Chest wall/Lungs: Air entry diminished in bilateral lung bases. Mild coarse crepitation in lung bases for last 3 to 4 days. Cardiovascular: Regular rate, Regular Rhythm, Normal S1, Normal S2, No M/G/R Abdomen: Bowel Sounds Present, Soft, Non Tender, Non-Distended : No dysuria. No renal angle tenderness. No suprapubic tenderness. Extremities: Mild bilateral lower leg pitting edema, Capillary Refill Less than 3 Seconds Skin: No rashes, No breakdown Musculoskeletal: No Tenderness to Palpation of Joints or Extremities. ROM restricted. 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 Neurological: Cranial nerves II-XII grossly intact, DTR 2+/4. No acute focal neurological deficit. Psych/Mental Status: Flat affect. Weight / BMI Weight Weight: 146 lb 4.815 oz Body Mass Index (BMI) 26.7 ABG / Lab / Microbiology Data 09/11/23 04:30 09/12/23 06:30 Laboratory: Laboratory Results - last 24 hr 09/11/23 16:12: POC Glucose 182 H 09/11/23 22:37: POC Glucose 132 H 09/12/23 06:30: Sodium 142, Potassium 4.4, Chloride 112 H, Carbon Dioxide 27.0, BUN 44 H, Creatinine 1.03 H, Estim Creat Clear Calc 35.68, Est GFR (MDRD) Af Amer 65, Est GFR (MDRD) Non-Af 54 L, BUN/Creatinine Ratio 42.7 H, Glucose 82, Calcium 8.7, Phosphorus 2.5, Albumin 1.6 L 09/12/23 08:08: POC Glucose 91 09/12/23 11:26: POC Glucose 159 H Microbiology: Microbiology 09/06/23 14:39 Blood Culture (Wb) - Right Forearm Blood Culture - Final No growth in 5 days. 09/06/23 14:36 Blood Culture (Wb) - Right Hand Blood Culture - Final No growth in 5 days. 09/09/23 15:50 Stool Stool Occult Blood (ROYAL) - Final 09/07/23 18:20 Urine Catheter - [place] Legionella Antigen - Final 09/07/23 18:20 Urine Catheter - [place] Streptococcus pneumoniae Antigen (M - Final 09/06/23 15:50 Mucosa - Nose Respiratory Panel (PCR) - Final Influenza A (Subtype H3) Meaningful Use Info Meaningful Use Diagnoses (Choose all that apply): None applicable Discharge Plan Admission Admit Date/Time: 09/03/23 13:07 Primary Reason for Your Visit: Acute hypoxic respiratory failure, pneumonia Attending Provider: Juan Esteves Primary Care Provider: Anu Mortensen Consulting Providers: Dudley Thompson; Chuck Reynolds; Alisia Lawrence Instructions Additional Instructions / Restrictions: Hold baby aspirin if platelet count drops less than 50,000 or hemoglobin less than 8 g% Discharge Orders/Prescriptions Prescriptions: New polyethylene glycol 3350 17 gram Powder In Packet 17 g PO DAILY Qty: 0 0RF sennosides-docusate sodium [Stool Softener-Stimulant Laxat] 8.6-50 mg Tablet 2 tab PO BID PRN (Reason: constipation) Qty: 0 0RF pantoprazole 40 mg Tablet,Delayed Release (Dr/Ec) 40 mg PO DAILY 30 Days Qty: 30 0RF ferrous sulfate [FeroSul] 325 mg (65 mg iron) Tablet 325 mg PO QODAY@LUNCH Qty: 0 0RF Mucinex DM 30-600 mg Tablet Extended Release 12 Hr 2 tab PO BID 7 Days Qty: 0 0RF aspirin 81 mg Tablet,Delayed Release (Dr/Ec) 81 mg PO BREAKFAST 30 Days Qty: 30 2RF insulin lispro [Humalog KwikPen Insulin] 100 unit/mL Insulin Pen See Protocol subcut ACHS Qty: 0 0RF Protocol: 4. Sliding Scale Insulin High-Med Dosing Condition: 150-199 mg/dl = 2 units Condition: 200-259 mg/dl = 4 units Condition: 260-324 mg/dl = 6 units Condition: 325-374 mg/dl = 8 units Condition: 375-409 mg/dl = 10 units Condition: 410-449 mg/dl = 11 units Condition: Greater than 449 call physician Protocol Text: - Use for Total Daily Dose of Insulin 56-80 units - Patient who are insulin resistant or septic HIGH MEDIUM DOSING ALGORITHM insulin lispro [Humalog KwikPen Insulin] 100 unit/mL Insulin Pen 10 unit subcut TIDAC Qty: 0 0RF insulin glargine [Lantus Solostar U-100 Insulin] 100 unit/mL (3 mL) insulin pen 15 unit subcut DAILY Qty: 15 2RF Rx Instructions: Hold if glucose less than 130 mg/dl dexamethasone 2 mg tablet See Rx Instructions .ROUTE .COMPLEX Qty: 12 0RF Rx Instructions: 2 mg orally twice daily for 3 days and then 2 mg once daily for 3 days, then 1 mg for 6 days and then stop Continued cholecalciferol (vitamin D3) 1,000 unit tablet 2,500 unit PO DAILY albuterol sulfate 2.5 mg /3 mL (0.083 %) solution for nebulization 2.5 mg inhalation Q4H PRN (Reason: shortness of breath or wheezing) ipratropium-albuterol 0.5 mg-3 mg(2.5 mg base)/3 mL solution for nebulization 3 ml inhalation Q6H PRN (Reason: shortness of breath) duloxetine 30 mg capsule,delayed release(DR/EC) 30 mg PO BID atorvastatin 40 MG tablet 40 mg PO QHS clopidogrel 75 MG tablet 75 mg PO DAILY multivitamin with folic acid 1 TABLET tablet 1 tab PO DAILY albuterol sulfate 90 mcg/actuation HFA aerosol inhaler 2 puff INHALATION BID PRN (Reason: shortness of breath or wheezing) pramipexole 1.5 mg tablet 1.5 mg PO QHS diclofenac sodium 1 % gel 1 inch TOPICAL DAILY PRN (Reason: unknown) Patient Comments: pt using, but unaware of directions furosemide 40 mg tablet 40 mg PO DAILY Qty: 90 3RF Hold Instructions: Hold for 2 days. carvedilol 12.5 mg tablet 12.5 mg PO BID Qty: 180 4RF Rx Instructions: must administer with a meal/food Changed budesonide 0.5 mg/2 mL suspension for nebulization 0.25 mg inhalation BID 30 Days Qty: 0 0RF losartan 50 mg tablet 25 mg PO DAILY Qty: 90 3RF Rx Instructions: Hold for SBP less than 130 mmHg Discontinued spironolactone 25 MG tablet 25 mg PO DAILY Hold Instructions: Hold until serum potassium drops to 4.0. dexamethasone 6 mg tablet 6 mg PO DAILY Qty: 7 0RF Hold Instructions: duplicate Patient Comments: states was to start this am prednisone 10 mg tablet 10 mg PO DAILY Patient Comments: pt was supposed to start this morning, was not able to Referrals / Follow Up: Shamir Delvalle DO [Med Staff - Active Staff] - Within 1 Month (Hypoxia, Pneumonia) Alisia Lawrence MD [Med Staff - Consulting] - Within 1 Month Anu Mortensen MD [Primary Care Provider] - Dudley Thompson MD [Med Staff - Active Staff] - Within 1 Month Disposition Disposition (needs filled in before D/C Order can be placed): Care Home Facility Charges/Coding Visit Charges Inpatient E&M: 12487 Disch Hosp >30min
--- NOTE | 2023-09-12 13:44 | CASEMGMT ---
Patient was approved to go to [facility]. SW notified physician. Plan: d/c to [facility] under skilled level of care. Luisa TEAGUE
--- NOTE | 2023-09-12 13:51 | CASEMGMT ---
ABBEY notified patient that her insurance approved her to go to TCU and she will go today. ABBEY also called patient's daughter Dora per patient's request and let her know patient will be going to TCU today. Dora thanked ABBEY for letting her know. Plan: [facility] under skilled level of care. Luisa TEAGUE
[2023-09-12] MEDS: predniSONE 20 MG Tablet 40 MG PO (14:05)
--- NOTE | 2023-09-12 14:12 | PHA.DC.MR.R ---
Pharmacy [place] [facility] Reconciliation Pharmacy Service has performed discharge medication reconciliation for this patient. The patient's discharge medication list was reviewed for discrepancies and discrepancies were resolved. Medications at Discharge Home Medications atorvastatin 40 mg tablet 40 mg PO QHS cholesterol 02/22/16 clopidogrel 75 mg tablet 75 mg PO DAILY BLOOD THINNER 02/22/16 multivitamin with folic acid 400 mcg tablet 1 tab PO DAILY supplement 02/22/16 albuterol sulfate 90 mcg/actuation aerosol inhaler 2 puff inhalation BID PRN shortness of breath or wheezing 03/16/18 cholecalciferol (vitamin D3) 25 mcg (1,000 unit) tablet 2,500 unit PO DAILY SUPPLEMENT 10/09/18 furosemide 40 mg tablet 40 mg PO DAILY FLUID RETENTION #90 tabs 01/27/22 albuterol sulfate 2.5 mg/3 mL (0.083 %) solution for nebulization 2.5 mg inhalation Q4H PRN shortness of breath or wheezing 05/28/22 ipratropium 0.5 mg-albuterol 3 mg (2.5 mg base)/3 mL nebulization soln 3 ml inhalation Q6H PRN shortness of breath 05/28/22 carvedilol 12.5 mg tablet 12.5 mg PO BID CHOLESTEROL #180 tabs 04/27/23 duloxetine 30 mg capsule,delayed release 30 mg PO BID pain 08/17/23 pramipexole 1.5 mg tablet 1.5 mg PO QHS restless leg syndrome 08/18/23 diclofenac sodium 1 % topical gel 1 inch topical DAILY PRN unknown 09/03/23 aspirin 81 mg tablet,delayed release 81 mg PO BREAKFAST 30 days #30 tabs 09/09/23 budesonide 0.5 mg/2 mL suspension for nebulization 0.25 mg inhalation BID 30 days #0 mL 09/09/23 dexamethasone 2 mg tablet See Rx Instructions .Route .COMPLEX #12 tabs 09/09/23 dextromethorphan-guaifenesin 30 mg-600 mg tablet extended [id number] hr (Mucinex DM) 2 tab PO BID 7 days #0 tabs 09/09/23 ferrous sulfate 325 mg (65 mg iron) tablet (FeroSul) 325 mg PO QODAY@LUNCH #0 tabs 09/09/23 insulin glargine 100 unit/mL (3 mL) subcutaneous pen (Lantus Solostar U-100 Insulin) 15 unit (0.15 mL) subcut DAILY #15 mL 09/09/23 insulin lispro 100 unit/mL subcutaneous pen (Humalog KwikPen (U-100) Insulin) 10 unit (0.1 mL) subcut TIDAC #0 mL 09/09/23 insulin lispro 100 unit/mL subcutaneous pen (Humalog KwikPen (U-100) Insulin) See Protocol subcut ACHS #0 mL 09/09/23 pantoprazole 40 mg tablet,delayed release 40 mg PO DAILY 30 days #30 tabs 09/09/23 polyethylene glycol 3350 17 gram oral powder packet 17 g PO DAILY #0 ea 09/09/23 sennosides 8.6 mg-docusate sodium 50 mg tablet (Stool Softener-Stimulant Laxative) 2 tab PO BID PRN constipation #0 tabs 09/09/23 losartan 50 mg tablet 25 mg (1/2 x 50 mg) PO DAILY BLOOD PRESSURE #90 tabs 09/12/23
[2023-09-12 14:21] LABS: Pathologist Review Reviewed
[2023-09-12 14:26] LABS: Pathologist Review Reviewed
[2023-09-12 14:30] LABS: Pathologist Review Reviewed
== END 2023-09-12 15:33 | disposition skilled nursing facility (03) | DRG 190 ==
LOC: ED 12:53 → PCU 13:37
PROVIDERS: Family Medicine; Internal Medicine Nephrology; Nurse Practitioner Adult Health; Admitting Provider Internal Medicine; Emergency Provider Student in an Organized Health Care Education/Training Program; PCP Internal Medicine; Visit Provider Internal Medicine
DX: J44.1 Chronic obstructive pulmonary disease with (acute) exacerbation (principal); J15.9 Unspecified bacterial pneumonia; J96.01 Acute respiratory failure with hypoxia; J96.02 Acute respiratory failure with hypercapnia; I13.0 Hypertensive heart and chronic kidney disease with heart failure and stage 1 through stage 4 chronic kidney disease, or unspecified chronic kidney disease; I5A Non-ischemic myocardial injury (non-traumatic); I50.32 Chronic diastolic (congestive) heart failure; N17.9 Acute kidney failure, unspecified; J10.08 Influenza due to other identified influenza virus with other specified pneumonia; D63.8 Anemia in other chronic diseases classified elsewhere; N18.32 Chronic kidney disease, stage 3b; J44.0 Chronic obstructive pulmonary disease with (acute) lower respiratory infection; I65.23 Occlusion and stenosis of bilateral carotid arteries; F32.A Depression, unspecified; I95.9 Hypotension, unspecified; E78.5 Hyperlipidemia, unspecified; E87.5 Hyperkalemia; M48.061 Spinal stenosis, lumbar region without neurogenic claudication; M47.26 Other spondylosis with radiculopathy, lumbar region; M54.41 Lumbago with sciatica, right side; F41.9 Anxiety disorder, unspecified; U09.9 Post COVID-19 condition, unspecified; R45.1 Restlessness and agitation; R33.9 Retention of urine, unspecified; R53.81 Other malaise; Z79.82 Long term (current) use of aspirin; Z79.02 Long term (current) use of antithrombotics/antiplatelets; Z79.51 Long term (current) use of inhaled steroids; Z87.891 Personal history of nicotine dependence
CPT/HCPCS: 36415; 36600; 71045; 71046; 80048; 80069; 81001; 82274; 82607; 82746; 82803; 82962; 83880; 84132; 84484; 85014; 85018; 85025; 87040; 87449; 87633; 87641; 92610; 93005; 93308; 94002; 94003; 94640; 94668; 94762; 97110; 97162; 97166; 97530; 97535; 97802; 97803; 99252; 99284; Q9957; A4216; G0463; J0612; J1938; J2405; J2916

== ENCOUNTER 2023-09-12 15:35 | Inpatient (IN) | payer MEDICARE, SELFPAY ==
[2023-09-12 16:18] VITALS: BP 121/62; PULSE 96; RESP 18; TEMP 36.1; O2SAT 98; BMI 26.8
--- NOTE | 2023-09-12 19:15 | HP.PCM_ITS ---
HPI - General General Date of Admission: 09/12/23 Date of Service: 09/12/23 Chief Complaint: Here for rehabilitation. HPI Narrative 09/03/2023 DICK ARTIS, is a 87 Female who presents to [facility] ED with back pain. Chronic back pain, sees pain management, status post 2 epidural steroid injections. Going to spine surgeon soon. COPD exacerbation, recent covid-19 admission. Oxygen 2 liters is new, status post steroids. Right low back pain radiating down right leg, Fentanyl given. Aerosols, Solu-medrol for COPD exacerbation. Creatinine 1.25, BNP 210, Chest X-ray showed improving infiltrates. Troponin 1220, Aspirin 324mg, Heparin drip for NSTEMI. 09/03/2023 Admit to [facility]. Cycle enzymes, Echo, Cardioloy, Aspirin, Plavix, BB, Statin for NSTEMI. Decadron IV, Aerosols, COPD exacerbation. PT/OT, Decadron IV, Narcotics IV, Gabapentin, cyclobenzaprine for right lumbar radiculopathy. 09/04/2023 Echo Normal LV. LVSF normal. LVEF 70%. PASP 30mm HG. 09/05/2023 SOB better, RAPHAEL persists. Cardiology recommended medical management for NSTEMI, HFpEF. PT/OT debility. Aerosols, Decadon IV for COPD. Recommend tertiary center for spinal stenosis, right lumbar radiculopathy surgery. Hold medications for Hypotension. 09/06/2023 SOB worse, 9 liters high flow oxygen. Zosyn IV for pneumonia, BiPAP prn. +influenza A, BiPAP added. 09/07/2023 Tamiflu for influenza A. BiPAP for Acute respiratory failure with hypoxia. Decadron IV for right lumbar radiculopathy. 09/08/2023 SOB improved, oxygen 4 liters. Urinary antigens negative. Tamiflu for Flu A. Zosyn IV pneumonia. BERNARDO improved, K 5.4. 09/09/2023 Oxygen 2 liters. Creatinine 1.37, K 5.1, Hemoglobin 8.3. 09/10/2023 Weak, tired. 09/11/2023 Last day of Tamiflu. 09/12/2023 Pre-[facility] TCU. 09/13/2023 Admit to TCU with debility, here for rehabilitation, strengthening, prior to discharge home alone. ON LICENSE OF [facility] Medical History (Updated 09/12/23 @ 19:[address] Richy Pierson MD) Bilateral carotid artery stenosis Chronic kidney disease Claudication Diverticulosis Dyslipidemia Essential hypertension History of COPD History of TIA (transient ischemic attack) Leg edema Limb weakness Muscle spasm of left shoulder area Neck and back pain PAD (peripheral artery disease) Renal cyst RLS (restless legs syndrome) Shortness of breath Shoulder pain TIA (transient ischemic attack) Vertigo Home Medications atorvastatin 40 mg tablet 40 mg PO QHS cholesterol 02/22/16 [History Last Taken 09/11/23 22:30] clopidogrel 75 mg tablet 75 mg PO DAILY BLOOD THINNER 02/22/16 [History Last Taken 09/12/23 08:15] multivitamin with folic acid 400 mcg tablet 1 tab PO DAILY supplement 02/22/16 [History Last Taken 09/02/23] albuterol sulfate 90 mcg/actuation aerosol inhaler 2 puff inhalation BID PRN shortness of breath or wheezing 03/16/18 [History Last Taken 09/02/23] cholecalciferol (vitamin D3) 25 mcg (1,000 unit) tablet 2,500 unit PO DAILY SUPPLEMENT 10/09/18 [History Last Taken 09/02/23] furosemide 40 mg tablet 40 mg PO DAILY FLUID RETENTION #90 tabs 01/27/22 [Rx Last Taken 09/12/23 08:15] albuterol sulfate 2.5 mg/3 mL (0.083 %) solution for nebulization 2.5 mg inhalation Q4H PRN shortness of breath or wheezing 05/28/22 [History Last Taken 09/03/23] ipratropium 0.5 mg-albuterol 3 mg (2.5 mg base)/3 mL nebulization soln 3 ml inhalation Q6H PRN shortness of breath 05/28/22 [History Last Taken 09/02/23] carvedilol 12.5 mg tablet 12.5 mg PO BID CHOLESTEROL #180 tabs 04/27/23 [Rx Last Taken 09/12/23 08:15] duloxetine 30 mg capsule,delayed release 30 mg PO BID pain 08/17/23 [History Last Taken 09/12/23 08:15] pramipexole 1.5 mg tablet 1.5 mg PO QHS restless leg syndrome 08/18/23 [History Last Taken 09/11/23 22:30] diclofenac sodium 1 % topical gel 1 inch topical DAILY PRN unknown 09/03/23 [History Last Taken Unknown] aspirin 81 mg tablet,delayed release 81 mg PO BREAKFAST blood 30 days #30 tabs 09/09/23 [Rx Last Taken 09/12/23 08:15] budesonide 0.5 mg/2 mL suspension for nebulization 0.25 mg inhalation BID breathing 30 days #0 mL 09/09/23 [Rx Last Taken 09/02/23] dexamethasone 2 mg tablet See Rx Instructions .Route .COMPLEX breathing #12 tabs 09/09/23 [Rx Last Taken Unknown] dextromethorphan-guaifenesin 30 mg-600 mg tablet extended qstuwkb14 hr (Mucinex DM) 2 tab PO BID cough 7 days #0 tabs 09/09/23 [Rx Last Taken 09/12/23 08:15] ferrous sulfate 325 mg (65 mg iron) tablet (FeroSul) 325 mg PO QODAY@LUNCH health maintenance #0 tabs 09/09/23 [Rx Last Taken 09/11/23 12:20] insulin glargine 100 unit/mL (3 mL) subcutaneous pen (Lantus Solostar U-100 Insulin) 15 unit (0.15 mL) subcut DAILY diabetes #15 mL 09/09/23 [Rx Last Taken Unknown] insulin lispro 100 unit/mL subcutaneous pen (Humalog KwikPen (U-100) Insulin) 10 unit (0.1 mL) subcut TIDAC diabetes #0 mL 09/09/23 [Rx Last Taken 09/10/23 11:50] insulin lispro 100 unit/mL subcutaneous pen (Humalog KwikPen (U-100) Insulin) See Protocol subcut ACHS diabetes #0 mL 09/09/23 [Rx Last Taken 09/12/23 11:30] pantoprazole 40 mg tablet,delayed release 40 mg PO DAILY GERD 30 days #30 tabs 09/09/23 [Rx Last Taken 09/12/23 08:15] polyethylene glycol 3350 17 gram oral powder packet 17 g PO DAILY constipation #0 ea 09/09/23 [Rx Last Taken 09/11/23 12:20] sennosides 8.6 mg-docusate sodium 50 mg tablet (Stool Softener-Stimulant Laxative) 2 tab PO BID PRN constipation #0 tabs 09/09/23 [Rx Last Taken 09/11/23 10:35] losartan 50 mg tablet 25 mg (1/2 x 50 mg) PO DAILY BLOOD PRESSURE #90 tabs 09/12/23 [Rx Last Taken 09/05/23] Allergy/AdvReac Type Severity Reaction Status Date / Time lisinopril Allergy edema Verified 09/03/23 09:41 aspirin AdvReac Upset Verified 09/03/23 09:41 Stomach Family History Mother Heart disease Surgical History History of basal cell carcinoma excision History of carotid angioplasty History of kidney stones History of thyroid surgery History of total hysterectomy Social History household members: none housing: house Smoking Status: Former smoker how long ago did patient quit smokin years ago alcohol intake: current alcohol intake frequency: holidays/special occasions only details: rare substance use type: does not use caffeine: Yes Type: coffee Number of servings: 1 ROS Constitutional Constitutional: Reports fatigue and weakness; Denies chills, fever(s) or weight gain ENT HEENT: Denies headache(s), nasal congestion or nasal discharge Cardiovascular Cardiovascular: Denies chest pain or palpitations Respiratory/Chest Respiratory/Chest: Denies cough, excessive phlegm production or shortness of breath with exertion Gastrointestinal Gastrointestinal: Denies abdominal pain, nausea or vomiting Genitourinary Genitourinary: Denies dysuria Musculoskeletal Musculoskeletal: Denies joint pain or joint swelling Integumentary Integumentary: Denies rash or wounds Neurologic Neurologic: Denies focal weakness, numbness or tingling Psychiatric Psychiatric: Denies anxiety, auditory hallucinations, depression, homicidal ideation or suicidal ideation Vital Signs Vital Signs Vital Signs: 09/12/23 16:18 09/12/23 16:18 Temperature 96.9 F L Temperature Source Temporal Pulse Rate 96 Pulse Rhythm Regular Pulse Strength Normal (2+) Respiratory Rate 18 Respiratory Effort Normal Non-Labored Respiratory Depth Normal Respiratory Pattern Normal Blood Pressure 121/62 H Blood Pressure Mean 81 Blood Pressure Source Monitor Blood Pressure Position Sitting Blood Pressure Location Left Arm Pulse Ox 98 Oxygen Delivery Method Nasal Cannula Nasal Cannula Oxygen Flow Rate (L/min) 5 5 Weight Weight: 66.497 kg Body Mass Index (BMI) 26.8 Physical Exam Const alert General Appearance: cooperative HEENT normocephalic Eyes PERRL and EOMs intact bilaterally Neck supple, no JVD and no carotid bruits Resp normal respiratory effort and normal air movement Auscultation: rhonchi and wheezes Cardio regular rate and regular rhythm GI normal to inspection, nondistended, normoactive bowel sounds, non-tender and non-distended Extremity normal capillary refill General Extremity: Negative for edema Skin no rashes or lesions noted General Skin Exam: no breakdown Psych affect normal Appearance: appropriate Assessment & Plan Assessment/Plan (1) Debility: (2) Non-STEMI (non-ST elevated myocardial infarction): (3) Acute exacerbation of chronic obstructive pulmonary disease: (4) Right lumbar radiculopathy: (5) Acute hypoxic respiratory failure: (6) Influenza A: (7) Hyperlipidemia: (8) TIA (transient ischemic attack): (9) RLS (restless legs syndrome): (10) Chronic heart failure with preserved ejection fraction (HFpEF): PLAN: Plan 87 year old female with below past medical history hospitalized for NSTEMI, acute respiratory failure secondary to influenza A, COPD exacerbation, complicated by right lumbar radiculopathy, acute kidney injury, hyperkalemia, anemia, admitted to TCU with debility, here for rehabilitation, strengthening, prior to discharge home alone. * Debility - PT/OT. * Dysphagia - ST. * Pain - Tylenol 1000mg q6 prn pain (1-10), Arthritis pain 1 click topical daily prn. * Bowel - Miralax 17gm daily, senna/colace 2 tablets bid prn. * Adult immunization - Administer pneumonia vaccine, covid vaccine, flu vaccine as appropriate. * DVT prophylaxis - Hold, anemia. * COPD - Budesonide 0.5mg bid, Duoneb 3ml q6, Albuterol 2.5mg q4 prn, Decadron 2mg bid with taper. * Hyperlipidemia - Atorvastatin 40mg qhs. * HFpEF - Coreg 12.5mg bid, Losartan 25mg daily, Furosemide 40mg daily. * TIA - Plavix 75mg daily. * Depression - Duloxetine 30mg bid, stable chronic care home use, GDR not recommended. * Iron deficiency anemia - Ferrous sulfate 325mg qod. * Cough - Robitussin DM 2 tablets bid. * Diabetes Mellitus II - Glargine 15 units daily, Humalog 10 units tid. * Tinea Corporis - Miconazole topical bid. * Nutrition - MVI 1 tablet daily. * GERD - Pantoprazole 40mg daily. * Restless Leg syndrome - Mirapex 1.5mg qhs.
[2023-09-12 20:45] VITALS: BP 106/68; PULSE 104; RESP 18; O2SAT 96
[2023-09-12] MEDS: Miconazole Nitrate 43 GM Bottle 1 APPLIC TOPICAL (20:45)
[2023-09-12] MEDS: DULoxetine Hcl 30 MG Capsule PO (20:48)
[2023-09-12] MEDS: Atorvastatin Calcium 40 MG Tablet PO (20:48)
[2023-09-12] MEDS: Carvedilol 12.5 MG Tablet PO (20:48)
[2023-09-12] MEDS: Pramipexole Di-HCl 0.5 MG Tablet 1.5 MG PO (20:48)
[2023-09-12] MEDS: guaiFENesin/D-Methorphan TAB.SR.12H 2 TABLET PO (20:49)
[2023-09-12 21:32] LABS: Bedside Glucose 317 mg/dL (74-106)
[2023-09-12 23:37] LABS: Bedside Glucose 259 mg/dL (74-106)
[2023-09-13] VITALS (8 sets, daily range): BP systolic 99; BP diastolic 43; PULSE 71–87; RESP 16–18; TEMP 36.1; O2SAT 97–99; BMI 26.8
[2023-09-13] MEDS: Acetaminophen 500 MG Tablet 1000 MG PO (00:17)
[2023-09-13 06:06] LABS: Hematocrit 22.6 % (37-47); Hemoglobin 6.9 g/dL (12.0-15.0); Mean Corp Hgb Conc 30.5 g/dL (32-36); Mean Corpuscular Hgb 31.2 pg (27.0-32.0); Mean Corpuscular Volume 102.3 fL (81-99); POSITIVE COUNT YES; POSITIVE DIFFERENTIAL YES; POSITIVE MORPHOLOGY YES; Platelet Count 149 K/mm3 (150-450); RBC Distribution Width CV 16.9 % (11.6-14.6); RBC Distribution Width SD 63.2 fl (35.1-43.9); Red Blood Count 2.21 M/mm3 (4.2-5.4); White Blood Count 4.7 K/mm3 (4.4-11.0)
[2023-09-13 06:09] LABS: Differential Indicated MANUAL DIFF
[2023-09-13 06:20] LABS: Bedside Glucose 104 mg/dL (74-106)
[2023-09-13 06:28] LABS: Anion Gap 2 (5-15); BUN 45 mg/dL (7-18); BUN/Creat Ratio 37.5 RATIO (10-20); Calcium,Total 7.9 mg/dL (8.5-10.1); Chloride 107 mmol/L (98-107); EST Glomerular Filtration Rate 45 mL/min (>60); Est Glom Filt Rate - Afr Amer 55 mL/min (>60); Estimated Creatinine Clearance 30.66 ml/min; Glucose 129 mg/dL (74-106); Potassium 3.5 mmol/L (3.5-5.1); Sodium Level 142 mmol/L (136-145)
[2023-09-13 06:56] LABS: Eosinophil 3 % (0-5); Lymphocyte 11 % (19-41); Monocyte 7 % (0-10); Myelocyte 4 % (0-0); Neutrophil-Segmented 75 % (47-70); Total Cells Counted 100 (MANUAL DIFF)
[2023-09-13 06:57] LABS: Absolute Lymphocyte Count 0.52 X10^3/uL (0.83-4.51); Absolute Neutrophil Count 3.5 X10^3/uL (2.0-7.7)
[2023-09-13] MEDS: Ipratropium/Albuterol Sulfate 3 ML AMPUL.NEB INHALATION ×3 (07:25→19:16)
[2023-09-13] MEDS: Budesonide Respules 0.5 MG/2 ML AMPUL.NEB. INHALATION ×2 (07:25→19:16)
[2023-09-13] MEDS: Insulin Lispro 100 UNIT/ML INSULN.PEN 10 UNIT SC ×3 (08:02→16:49)
[2023-09-13] MEDS: Multivitamins,Therapeutic Tablet 1 TABLET PO (08:04)
[2023-09-13] MEDS: Carvedilol 12.5 MG Tablet PO ×2 (08:04→22:22)
[2023-09-13] MEDS: Losartan Potassium 25 MG Tablet PO (08:05)
[2023-09-13] MEDS: DULoxetine Hcl 30 MG Capsule PO ×2 (08:05→22:22)
[2023-09-13] MEDS: Miconazole Nitrate 43 GM Bottle 1 APPLIC TOPICAL ×2 (08:05→22:27)
[2023-09-13] MEDS: guaiFENesin/D-Methorphan TAB.SR.12H 2 TABLET PO ×2 (08:06→22:22)
[2023-09-13] MEDS: Furosemide 40 MG Tablet PO (08:06)
[2023-09-13] MEDS: Insulin Glargine-YFGN 100 UNIT/ML Pen 15 UNIT SC (08:06)
[2023-09-13] MEDS: Cholecalciferol (VIT D3) 25 MCG TABLET (1,000 UNITS) PO (08:07)
[2023-09-13] MEDS: Clopidogrel Bisulfate 75 MG Tablet PO (08:07)
[2023-09-13] MEDS: Pantoprazole Sodium 40 MG Tablet PO (08:07)
--- NOTE | 2023-09-13 08:18 | CPS ---
decreased to 4L NC at this time
--- NOTE | 2023-09-13 09:49 | PHA.CONS_ITS ---
Documented by User: Kota Herrera 09/13/23 10:19 TCU RX Drug Regimen Review Subjective/Objective Subjective/Objective: Subjective: TCU admission note. 87 year old female with below past medical history hospitalized for NSTEMI, acute respiratory failure secondary to infl uenza A, COPD exacerbation, complicated by right lumbar radiculopathy, acute kidney injury, hyperkalemia, anemia, admitted to TCU with debility, here for rehabilitation, strengthening, prior to discharge home alone. Objective: Allergies lisinopril Allergy (Verified 09/03/23 09:41) edema aspirin Adverse Reaction (Verified 09/03/23 09:41) Upset Stomach Current Medications Generic Name Dose Route Start Last Admin Trade Name Freq PRN Reason Stop Dose Admin Acetaminophen 1,000 mg 09/12/23 19:44 09/13/23 00:17 Acetaminophen 500 Mg Tablet PO 1,000 mg Q6H PRN PRN Administration Pain Score 1-10 Albuterol Sulfate 2.5 mg 09/12/23 16:47 Albuterol 2.5 Mg/3 Ml Vial.Neb. INHALATION Q4H PRN shortness of breath or wheezing Albuterol/Ipratropium 3 ml 09/12/23 16:52 09/13/23 07:25 Ipratropium/Albuterol Sulfate 3 Ml Ampul.Neb INHALATION 3 ml Q6H.RT MUSA Administration Atorvastatin Calcium 40 mg 09/12/23 22:00 09/12/23 20:48 Atorvastatin Calcium 40 Mg Tablet PO 40 mg QHS MUSA Administration Budesonide 0.5 mg 09/12/23 22:00 09/13/23 07:25 Budesonide Respules 0.5 Mg/2 Ml Ampul.Neb. INHALATION 0.5 mg BID.RT MUSA Administration Carvedilol 12.5 mg 09/12/23 22:00 09/13/23 08:04 Carvedilol 12.5 Mg Tablet PO 12.5 mg BID MUSA Administration Protocol Cholecalciferol 25 mcg 09/13/23 10:00 09/13/23 08:07 Cholecalciferol (Vit D3) 25 Mcg Tablet (1,000 Units) PO 25 mcg DAILY MUSA Administration Clopidogrel Bisulfate 75 mg 09/13/23 10:00 09/13/23 08:07 Clopidogrel Bisulfate 75 Mg Tablet PO 75 mg DAILY MUSA Administration Compound Med 1 click 09/12/23 17:41 Arthritis Pain Compound 60 Click Tube TOPICAL DAILY PRN Pain/Inflammation Dexamethasone 2 mg 09/13/23 08:00 09/13/23 08:03 Dexamethasone 0.5 Mg Tablet PO 09/25/23 07[facility] Administration Taper Duloxetine HCl 30 mg 09/12/23 22:00 09/13/23 08:05 Duloxetine Hcl 30 Mg Capsule PO 30 mg BID MUSA Administration Ferrous Sulfate 325 mg 09/13/23 12:00 Ferrous Sulfate 325 Mg Tablet PO QODAY@[email or web address] [facility] Furosemide 40 mg 09/13/23 10:00 09/13/23 08:06 Furosemide 40 Mg Tablet PO 40 mg DAILY [facility] Administration Protocol Guaifenesin 2 tablet 09/12/23 22:00 09/13/23 08:06 Guaifenesin/D-Methorphan Tab.Sr.12h PO 2 tablet BID [facility] Administration Insulin Glargine 15 unit 09/13/23 10:00 09/13/23 08:06 Insulin Glargine-Yfgn 100 Unit/Ml Pen SC 15 unit DAILY [facility] Administration Insulin Human Lispro 10 unit 09/13/23 06:45 09/13/23 08:02 Insulin Lispro 100 Unit/Ml Insuln.Pen SC 10 u TIDAC [facility] Administration Losartan Potassium 25 mg 09/13/23 10:00 09/13/23 08:05 Losartan Potassium 25 Mg Tablet PO 25 mg DAILY [facility] Administration Protocol Miconazole Nitrate 1 applic 09/12/23 22:00 09/13/23 08:05 Miconazole Nitrate 43 Gm Bottle TOPICAL 1 applic BID [facility] Administration Protocol Multivitamins 1 tablet 09/13/23 08:00 09/13/23 08:04 Multivitamins,Therapeutic Tablet [facility] Administration Pantoprazole Sodium 40 mg 09/13/23 10:00 09/13/23 08:07 Pantoprazole Sodium 40 Mg Tablet PO 40 mg DAILY [facility] Administration Polyethylene Glycol 17 gm 09/13/23 10:00 09/13/23 08:02 Polyethylene Glycol 3350 17 Gm Packet PO Not Given DAILY [facility] Pramipexole Dihydrochloride 1.5 mg 09/12/23 22:00 09/12/23 20:48 Pramipexole Di-Hcl 0.5 Mg Tablet PO 1.5 mg QHS [facility] Administration Senna/Docusate Sodium 2 tablet 09/12/23 16:57 Senna/Docusate Sodium 1 Tablet PO BID PRN constipation Tuberculin PPD 0.1 ml 09/20/23 10:00 Tuberculin,Purif.Prot.Deriv. 50 Tu/Ml Vial ID 09/20/23 10:01 X1 ONE Tuberculin PPD 0.1 ml 09/13/23 10:00 Tuberculin,Purif.Prot.Deriv. 50 Tu/Ml Vial ID 09/13/23 10:01 X1 ONE Problem List (Updated 09/12/23 @ 19:[address] Richy Pierson MD) Chronic heart failure with preserved ejection fraction (HFpEF) (Acute) RLS (restless legs syndrome) (Acute) TIA (transient ischemic attack) (Acute) Hyperlipidemia (Acute) Influenza A (Acute) Right lumbar radiculopathy (Acute) Debility (Acute) Acute hypoxic respiratory failure (Acute) Non-STEMI (non-ST elevated myocardial infarction) (Acute) Vital Signs Temp Pulse Resp BP Pulse Ox O2 Del Method O2 Flow Rate 96.9 F L 82 16 106/68 97 Nasal Cannula 4 09/12/23 16:18 09/13/23 07:25 09/13/23 07:25 09/12/23 20:45 09/13/23 08:11 09/13/23 07:25 09/13/23 08:11 Oxygen Flow Rate (L/min) 4 Oxygen Delivery Method Nasal Cannula Weight: 66.497 kg Body Mass Index (BMI) 26.8 Sodium 142 mmol/L (136-145) 09/13/23 05:14 Potassium 3.5 mmol/L (3.5-5.1) 09/13/23 05:14 Chloride 107 mmol/L (98-107) 09/13/23 05:14 Carbon Dioxide 33.0 mmol/L (21.0-32.0) H 09/13/23 05:14 Anion Gap 2 (5-15) L 09/13/23 05:14 BUN 45 mg/dL (7-18) H 09/13/23 05:14 Creatinine 1.20 mg/dL (0.55-1.02) H 09/13/23 05:14 Est GFR (MDRD) Af Amer 55 mL/min (>60) L 09/13/23 05:14 Est GFR (MDRD) Non-Af 45 mL/min (>60) L 09/13/23 05:14 BUN/Creatinine Ratio 37.5 RATIO (10-20) H 09/13/23 05:14 Glucose 129 mg/dL (74-106) H 09/13/23 05:14 Assessment/Plan: 1. Pain: acetaminophen 1000 mg PO Q6H PRN pain, arthritis pain cream 1 click topically daily PRN pain. The patient has used no doses of arthritis pain cream, and 1 dose of PRN acetaminophen so far for a pain score of 5, resulting in a pain score of. Please continue to monitor pain levels, PRN medication usage, and LFTs (AST/ALT = 21/23 U/L on 08/19/23). 2. Bowel: polyethylene glycol 17 grams PO daily, senna/docusate 2 tablets PO BID PRN constipation. The patient has not required any PRN doses of senna/docusate so far this admission, and her last bowel movement was today. Please continue to monitor for diarrhea, constipation, bowel movements, and PRN medication usage. 3. COPD: budesonide 0.5 mg inhalation BID, ipratropium/albuterol 3 mL inhalation Q6H, albuterol 2.5 mg inhalation Q4H PRN, dexamethasone 2 mg PO BID x 3 days, then 2 mg daily x 3 days, then 1 mg daily x 6 days. The patient has not required any PRN doses of albuterol so far this admission. Please continue to monitor for shortness of breath, cough, sputum production, palpitations, blood glucose readings (recent range 91-317 mg/dL), blood pressures (recent range = 92-131/42-63 mmHg), and for thrush. 4. HFpEF: carvedilol 12.5 mg PO BID, losartan 25 mg PO daily, furosemide 40 mg PO daily. Please continue to monitor for shortness of breath/congestion that could indicate heart failure exacerbation, for lower extremity edema, blood pressures (recent range = 92-131/42-63 mmHg), heart rates (recent range = 82- 104), for fatigue, renal function (serum creatinine = 1.20 mg/dL with creatinine clearance ~ 31 mL/min on 09/13/23), potassium levels (K = 3.5 mmol/L on 09/13/23), sodium levels (Na = 142 mmol/L on 09/13/23), and calcium levels (Ca = 7.9 mg/dL on 08/2723). 5. Hyperlipidemia: atorvastatin 40 mg PO QHS. Please continue to monitor lipid levels (cholesterol = 177 mg/dL with LDL = 75 mg/dL on 05/12/21), and for m yalgias. Please consider order repeat lipid levels as the patient does not have lipid levels documented for several years. 6. History of TIA: clopidogrel 75 mg PO daily. Please continue to monitor for s/s of TIA/stroke, for bleeding/excessive bruising, hemoglobin levels (Hgb = 6.9 mg/dL on 09/13/23), and platelet count (plt = 149 K/mm3 on 09/13/23). Please consider re-ordering hemoglobin levels every day for the next several days to assess anemia as patient's hemoglobin is < 7 mg/dL today. 7. Iron deficiency anemia: ferrous sulfate 325 mg PO every other day with lunch. Please continue to monitor iron levels (iron = 95 ug/dL on 08/19/23), hemoglobin levels (Hgb = 6.9 mg/dL on 09/13/23), and for GI distress with iron administration. 8. Diabetes Mellitus II: insulin glargine 15 units SC daily, insulin lispro 10 units SC TID before meals. Please continue to monitor blood glucose readings (recent range 91-317 mg/dL), hemoglobin A1C levels (no recent hemoglobin A1C level documented), and for s/s of hyper/hypoglycemia. Please consider ordering a hemoglobin A1C level as the patient does not have a recent A1C documented. 9. GERD: pantoprazole 40 mg PO daily. Please continue to monitor for s/s of GERD, for diarrhea that could indicate clostridium difficile infection, and for s/s of bone resorption such as fractures. 10. Cough: guaifenesin/dextromethorphan 2 tablets PO BID. Please continue to monitor cough. 11. Restless legs: pramipexole 1.5 mg PO QHS. Please continue to monitor for restless legs, for constipation, nausea, dizziness, drowsiness, and edema. 12. Nutrition/vitamin D deficiency: cholecalciferol 25 mcg PO daily, multivitamin 1 tablet PO daily. Please continue to monitor for s/s of vitamin D deficiency, vitamin D levels (no recent vitamin D level documented), and general nutritional status. Please consider ordering a vitamin D level to assess repletion status if clinically indicated. 13. Tinea corporis: miconazole 1 application BID. Please continue to monitor for resolution of tinea corporis. Assessment/Plan for indications treated with psychotropic medications: 1. Depression: duloxetine 30 mg PO BID. Please see provider note regarding stable chronic long-term use GDR not recommended. Please continue to monitor for depression, for s/s of serotonin syndrome, sodium levels (Na = 142 mmol/L on 09/13/23), abdominal pain, drowsiness and headache. Medical chart and medication regimen reviewed. The following medication irregularities or issues were identified: 1. Hyperlipidemia: atorvastatin 40 mg PO QHS. Please consider order repeat lipid levels as the patient does not have lipid levels documented for several years. 2. History of TIA: clopidogrel 75 mg PO daily. Please consider re-ordering hemoglobin levels every day for the next several days to assess anemia as patient's hemoglobin is < 7 mg/dL today. 3. Diabetes Mellitus II: insulin glargine 15 units SC daily, insulin lispro 10 units SC TID before meals. Please consider ordering a hemoglobin A1C level as the patient does not have a recent A1C documented. 4. Nutrition/vitamin D deficiency: cholecalciferol 25 mcg PO daily, multivitamin 1 tablet PO daily. Please consider ordering a vitamin D level to assess repletion status if clinically indicated. Date Date of Note:: 09/13/23 Documented by User: Dr. Richy Pierson MD 09/13/23 10:30 TCU RX Drug Regimen Review Provider Comments Provider responsibility Provider Comments to Recommendations by Pharmacy: Agree
--- NOTE | 2023-09-13 10:13 | NURSING ---
Addendum entered by Selam Raman 09/13/23 10:45: Spoke with infusion center, they will transfuse patient tomorrow (09/14/23) @0800. Updated patient and daughter Dora. Original Note: Updated Dr. Pierson of hgb 6.9, verbal order to give 2 units blood with 20mg IV lasix between units.
[2023-09-13] MEDS: Tuberculin,Purif.prot.deriv. 50 TU/ML Vial 0.100000000000000006 ML ID (10:48)
[2023-09-13 11:17] LABS: Bedside Glucose 174 mg/dL (74-106)
[2023-09-13] MEDS: Ferrous Sulfate 325 MG Tablet PO (11:31)
[2023-09-13 13:21] LABS: Pathologist Review Reviewed
--- NOTE | 2023-09-13 14:03 | CPS ---
this RT decreased pt to 3L NC. RN aware
[2023-09-13 16:51] LABS: Bedside Glucose 117 mg/dL (74-106)
[2023-09-13 21:25] LABS: Bedside Glucose 159 mg/dL (74-106)
[2023-09-13] MEDS: Pramipexole Di-HCl 0.5 MG Tablet 1.5 MG PO (22:21)
[2023-09-13] MEDS: Atorvastatin Calcium 40 MG Tablet PO (22:22)
[2023-09-14] VITALS (7 sets, daily range): BP systolic 124–129; BP diastolic 46–48; PULSE 80–92; RESP 18–22; TEMP 36.6; O2SAT 92–98
[2023-09-14 06:28] LABS: Cholesterol 157 mg/dL (200); High Density Lipoprotein 47 mg/dL; Triglycerides 149 mg/dL; Very Low Density Lipoprotein 30 mg/dL (5-40)
[2023-09-14] MEDS: Budesonide Respules 0.5 MG/2 ML AMPUL.NEB. INHALATION ×2 (07:58→18:53)
[2023-09-14] MEDS: Ipratropium/Albuterol Sulfate 3 ML AMPUL.NEB INHALATION ×2 (07:58→18:53)
[2023-09-14] MEDS: Multivitamins,Therapeutic Tablet 1 TABLET PO (08:03)
[2023-09-14] MEDS: guaiFENesin/D-Methorphan TAB.SR.12H 2 TABLET PO ×2 (08:05→21:32)
[2023-09-14] MEDS: Cholecalciferol (VIT D3) 25 MCG TABLET (1,000 UNITS) PO (08:05)
[2023-09-14] MEDS: Pantoprazole Sodium 40 MG Tablet PO (08:05)
[2023-09-14] MEDS: DULoxetine Hcl 30 MG Capsule PO ×2 (08:05→21:32)
[2023-09-14] MEDS: Clopidogrel Bisulfate 75 MG Tablet PO (08:05)
[2023-09-14] MEDS: Miconazole Nitrate 43 GM Bottle 1 APPLIC TOPICAL ×2 (08:06→21:35)
[2023-09-14] MEDS: Losartan Potassium 25 MG Tablet PO (08:09)
[2023-09-14] MEDS: Furosemide 40 MG Tablet PO (08:09)
[2023-09-14] MEDS: Carvedilol 12.5 MG Tablet PO ×2 (08:10→21:32)
--- NOTE | 2023-09-14 08:16 | NURSING ---
Addendum entered by Brian Martinez 09/14/23 14:57: PT RETURNED TO FLOOR AT 1420. Original Note: PT LEAVING FLOOR BY WHEEL CHAIR TO INFUSION CENTER FOR BLOOD AT THIS TIME.
[2023-09-14 09:05] LABS: Hemoglobin A1c 7.2 % (3.8-5.6)
[2023-09-14 09:45] LABS: Bedside Glucose 81 mg/dL (74-106)
--- NOTE | 2023-09-14 11:47 | CASEMGMT ---
Social Work Pt off unit for transfusion. SW unable to complete assessment. Will attempt tomorrow. Erinn Lees, FLIGHT [employer] MECH[employer]IC PMO MANAGER
[2023-09-14] MEDS: Insulin Lispro 100 UNIT/ML INSULN.PEN 10 UNIT SC ×2 (12:10→18:04)
[2023-09-14] MEDS: Albuterol 2.5 MG/3 ML VIAL.NEB. INHALATION (16:05)
[2023-09-14 16:21] LABS: Bedside Glucose 93 mg/dL (74-106)
[2023-09-14] MEDS: Atorvastatin Calcium 40 MG Tablet PO (21:32)
[2023-09-14] MEDS: Pramipexole Di-HCl 0.5 MG Tablet 1.5 MG PO (21:32)
[2023-09-14 21:55] LABS: Bedside Glucose 161 mg/dL (74-106)
[2023-09-15] VITALS (7 sets, daily range): BP systolic 108–118; BP diastolic 40–53; PULSE 74–97; RESP 18–24; TEMP 36.4; O2SAT 93–96
[2023-09-15] MEDS: Ipratropium/Albuterol Sulfate 3 ML AMPUL.NEB INHALATION ×3 (01:15→19:19)
[2023-09-15 06:19] LABS: Bedside Glucose 128 mg/dL (74-106)
[2023-09-15 06:50] LABS: Hematocrit 32.6 % (37-47); Hemoglobin 10.6 g/dL (12.0-15.0)
--- NOTE | 2023-09-15 07:02 | NURSING ---
Addendum entered by Brian Martinez 09/15/23 15:13: IN TO SEE PT Original Note: NOTIFIED ON CONSULT WITH PT.
[2023-09-15] MEDS: Insulin Lispro 100 UNIT/ML INSULN.PEN 10 UNIT SC ×3 (08:43→18:07)
[2023-09-15] MEDS: Carvedilol 12.5 MG Tablet PO ×2 (08:50→21:00)
[2023-09-15] MEDS: Losartan Potassium 25 MG Tablet PO (08:50)
[2023-09-15] MEDS: Multivitamins,Therapeutic Tablet 1 TABLET PO (08:50)
[2023-09-15] MEDS: guaiFENesin/D-Methorphan TAB.SR.12H 2 TABLET PO ×2 (08:51→20:59)
[2023-09-15] MEDS: Furosemide 40 MG Tablet PO (08:51)
[2023-09-15] MEDS: Cholecalciferol (VIT D3) 25 MCG TABLET (1,000 UNITS) PO (08:52)
[2023-09-15] MEDS: Pantoprazole Sodium 40 MG Tablet PO (08:52)
[2023-09-15] MEDS: DULoxetine Hcl 30 MG Capsule PO ×2 (08:53→20:59)
[2023-09-15] MEDS: Insulin Glargine-YFGN 100 UNIT/ML Pen 15 UNIT SC (08:55)
[2023-09-15] MEDS: Miconazole Nitrate 43 GM Bottle 1 APPLIC TOPICAL ×2 (08:58→21:08)
--- NOTE | 2023-09-15 09:00 | NURSING ---
WALKED INTO PT ROOM AND PT HAD A LARGE NOSE BLEED. ASKED PT WHAT HAPPENED PT STATED I DONT KNOW I HAVE HAD THEM THE LAST THREE DAYS. ASKED PT IF SHE TOLD ANY ONE, PT STATED NO. GOT NOSE TO STOP BLEEDING. CALLED. NEW ORDER TO HOLD PLAVIX FOR 3 DAYS AND THEN RESTART. ASKED PT TO PLEASE CALL IF SHE AT ANY TIMES GETS ANY MORE NOSE BLEEDS. PT STATED OK. RN AWARE
[2023-09-15] MEDS: Acetaminophen 500 MG Tablet 1000 MG PO (10:21)
--- NOTE | 2023-09-15 10:58 | US_ITS ---
STUDY: RENAL ULTRASOUND - COMPLETE REASON FOR EXAM: Female, 87 years old. CKD, hx renal cyst. -- Send report/images to Dr. Spencer Woodard. TECHNIQUE: Ultrasound evaluation of the kidneys was performed with real-time and static lyon-scale imaging. COMPARISON: None. FINDINGS: RIGHT KIDNEY: Normal location of the right kidney, which is normal in size. The right kidney measures 8.2 cm. There is diffuse thinning of the renal cortex. The renal cortex measures 0.70 cm. 3.8 cm cyst in the lower pole right kidney. Another 3.5 cm cyst of the lower pole right kidney. There are no right renal calculi. There is no right hydronephrosis. DISTAL RIGHT URETER: There is non-visualization of the distal right ureter. There is no demonstrated right ureterovesical junction calculus. There is a visualized right ureteral jet. LEFT KIDNEY: Normal location of the left kidney, which is normal in size. The left kidney measures 9.8 cm. There is diffuse thinning of the renal cortex. The renal cortex measures 1.0 cm. There is no left renal mass or cyst. There are no left renal calculi. There is no left hydronephrosis. DISTAL LEFT URETER: There is non-visualization of the distal left ureter. There is no demonstrated left ureterovesical junction calculus. There is a visualized left ureteral jet. BLADDER: Dover catheter in the collapsed bladder.. US/Kidney and Bladder IMPRESSION: No hydronephrosis to suggest obstruction. Electronically Signed: Yosi Price MD at 23:09 EST ,
--- NOTE | 2023-09-15 11:08 | NURSING ---
Patient's dtr asking if imaging ordered by Urologist Dr. Spencer Woodard could be done in the hospital while patient on TCU. Approved by Dr. Pierson. Spoke with staff at Dr. Woodard's office, they confirm she had a kidney US ordered for next week. Scan ordered, results to be sent to Dr. Woodard.
[2023-09-15 11:27] LABS: Bedside Glucose 163 mg/dL (74-106)
[2023-09-15] MEDS: Ferrous Sulfate 325 MG Tablet PO (11:59)
--- NOTE | 2023-09-15 15:48 | CASEMGMT ---
Social Work Met with pt to complete initial assessment. Introduced self and role. Verified/updated contacts. Pt confirmed code status as DNR-CCA, no intubation. Educated to [facility] insurance with NRD 3/4 and continued stay is not guaranteed with each review. Pt's goal is to return home alone at PLOF, without O2 and able to complete 13 steps to basement. Pt requesting 3-in-1 commode and FWW at [place]. SW to coordinate at [place] and will continue to follow. Erinn Lees, [employer]
[2023-09-15 17:10] LABS: Bedside Glucose 133 mg/dL (74-106)
[2023-09-15] MEDS: Budesonide Respules 0.5 MG/2 ML AMPUL.NEB. INHALATION (19:19)
--- NOTE | 2023-09-15 19:26 | CON.PCM.GI_ITS ---
HPI Consult Data Date of Consult: 09/15/23 HPI Narrative HPI Narrative: DICK ARTIS, is a 87 F who past medical history hospitalized for NSTEMI, acute respiratory failure secondary to influenza A, COPD exacerbation, complicated by right lumbar radiculopathy, acute kidney injury, hyperkalemia, anemia, admitted to TCU with debility, here for rehabilitation, strengthening, prior to discharge home alone. She has a severe anemia with history of chronic anemia from CKD/anemia of chronic disease: Hemoglobin decreased from 8.5-7.5. Her baseline creatinine runs between 9 to 10 g. Her hemoglobin drifted down to 6.8 and required blood transfusions. Her previous iron studies that showed a ferritin of 640, iron 95, TIBC 180, iron saturation of 52. She was diagnosed with acute blood loss anemia in the setting of anemia chronic disease. [facility] Medical History (Updated 09/15/23 @ 19:[address] Valerio Friend, DO) Bilateral carotid artery stenosis Chronic kidney disease Claudication Diverticulosis Dyslipidemia Essential hypertension History of COPD History of TIA (transient ischemic attack) Leg edema Limb weakness Muscle spasm of left shoulder area Neck and back pain PAD (peripheral artery disease) Renal cyst RLS (restless legs syndrome) Shortness of breath Shoulder pain TIA (transient ischemic attack) Vertigo Home Medications atorvastatin 40 mg tablet 40 mg PO QHS cholesterol 02/22/16 [History Last Taken 09/11/23 22:30] clopidogrel 75 mg tablet 75 mg PO DAILY BLOOD THINNER 02/22/16 [History Last Taken 09/12/23 08:15] multivitamin with folic acid 400 mcg tablet 1 tab PO DAILY supplement 02/22/16 [History Last Taken 09/02/23] albuterol sulfate 90 mcg/actuation aerosol inhaler 2 puff inhalation BID PRN shortness of breath or wheezing 03/16/18 [History Last Taken 09/02/23] cholecalciferol (vitamin D3) 25 mcg (1,000 unit) tablet 2,500 unit PO DAILY SUPPLEMENT 10/09/18 [History Last Taken 09/02/23] furosemide 40 mg tablet 40 mg PO DAILY FLUID RETENTION #90 tabs 01/27/22 [Rx Last Taken 09/12/23 08:15] albuterol sulfate 2.5 mg/3 mL (0.083 %) solution for nebulization 2.5 mg inhalation Q4H PRN shortness of breath or wheezing 05/28/22 [History Last Taken 09/03/23] ipratropium 0.5 mg-albuterol 3 mg (2.5 mg base)/3 mL nebulization soln 3 ml in halation Q6H PRN shortness of breath 05/28/22 [History Last Taken 09/02/23] carvedilol 12.5 mg tablet 12.5 mg PO BID CHOLESTEROL #180 tabs 04/27/23 [Rx Last Taken 09/12/23 08:15] duloxetine 30 mg capsule,delayed release 30 mg PO BID pain 08/17/23 [History Last Taken 09/12/23 08:15] pramipexole 1.5 mg tablet 1.5 mg PO QHS restless leg syndrome 08/18/23 [History Last Taken 09/11/23 22:30] diclofenac sodium 1 % topical gel 1 inch topical DAILY PRN unknown 09/03/23 [History Last Taken Unknown] aspirin 81 mg tablet,delayed release 81 mg PO BREAKFAST blood 30 days #30 tabs 09/09/23 [Rx Last Taken 09/12/23 08:15] budesonide 0.5 mg/2 mL suspension for nebulization 0.25 mg inhalation BID breathing 30 days #0 mL 09/09/23 [Rx Last Taken 09/02/23] dexamethasone 2 mg tablet See Rx Instructions .Route .COMPLEX breathing #12 tabs 09/09/23 [Rx Last Taken Unknown] dextromethorphan-guaifenesin 30 mg-600 mg tablet extended [id number] hr (Mucinex DM) 2 tab PO BID cough 7 days #0 tabs 09/09/23 [Rx Last Taken 09/12/23 08:15] ferrous sulfate 325 mg (65 mg iron) tablet (FeroSul) 325 mg PO QODAY@LUNCH health maintenance #0 tabs 09/09/23 [Rx Last Taken 09/11/23 12:20] insulin glargine 100 unit/mL (3 mL) subcutaneous pen (Lantus Solostar U-100 Insulin) 15 unit (0.15 mL) subcut DAILY diabetes #15 mL 09/09/23 [Rx Last Taken Unknown] insulin lispro 100 unit/mL subcutaneous pen (Humalog KwikPen (U-100) Insulin) 10 unit (0.1 mL) subcut TIDAC diabetes #0 mL 09/09/23 [Rx Last Taken 09/10/23 11:50] insulin lispro 100 unit/mL subcutaneous pen (Humalog KwikPen (U-100) Insulin) See Protocol subcut ACHS diabetes #0 mL 09/09/23 [Rx Last Taken 09/12/23 11:30] pantoprazole 40 mg tablet,delayed release 40 mg PO DAILY GERD 30 days #30 tabs 09/09/23 [Rx Last Taken 09/12/23 08:15] polyethylene glycol 3350 17 gram oral powder packet 17 g PO DAILY constipation #0 ea 09/09/23 [Rx Last Taken 09/11/23 12:20] sennosides 8.6 mg-docusate sodium 50 mg tablet (Stool Softener-Stimulant Laxative) 2 tab PO BID PRN constipation #0 tabs 09/09/23 [Rx Last Taken 09/11/23 10:35] losartan 50 mg tablet 25 mg (1/2 x 50 mg) PO DAILY BLOOD PRESSURE #90 tabs 09/12/23 [Rx Last Taken 09/05/23] Allergy/AdvReac Type Severity Reaction Status Date / Time lisinopril Allergy edema Verified 09/03/23 09:41 aspirin AdvReac Upset Verified 09/03/23 09:41 Stomach Family History Mother Heart disease Surgical History History of basal cell carcinoma excision History of carotid angioplasty History of kidney stones History of thyroid surgery History of total hysterectomy Social History household members: none housing: house Smoking Status: Former smoker how long ago did patient quit smokin years ago alcohol intake: current alcohol intake frequency: holidays/special occasions only details: rare substance use type: does not use caffeine: Yes Type: coffee Number of servings: 1 ROS Constitutional Constitutional: Reports fatigue and weakness; Denies chills, fever(s) or weight gain ENT HEENT: Denies headache(s), nasal congestion or nasal discharge Cardiovascular Cardiovascular: Denies chest pain or palpitations Respiratory/Chest Respiratory/Chest: Denies cough, excessive phlegm production or shortness of breath with exertion Gastrointestinal Gastrointestinal: Denies abdominal pain, nausea or vomiting Genitourinary Genitourinary: Denies dysuria Musculoskeletal Musculoskeletal: Denies joint pain or joint swelling Integumentary Integumentary: Denies rash or wounds Neurologic Neurologic: Denies focal weakness, numbness or tingling Psychiatric Psychiatric: Denies anxiety, auditory hallucinations, depression, homicidal ideation or suicidal ideation Physical Exam Const alert General Appearance: cooperative HEENT normocephalic Eyes PERRL and EOMs intact bilaterally Neck supple, no JVD and no carotid bruits Resp normal respiratory effort and normal air movement Auscultation: rhonchi and wheezes Cardio regular rate and regular rhythm GI normal to inspection, nondistended, normoactive bowel sounds, non-tender and non-distended Extremity normal capillary refill General Extremity: Negative for edema Skin no rashes or lesions noted General Skin Exam: no breakdown Psych affect normal Appearance: appropriate Lab / Micro Data 09/15/23 05:16 09/13/23 05:14 Labs: Laboratory Results - last 24 hr 09/14/23 21:16: POC Glucose 161 H 09/15/23 05:16: Hgb 10.6 L, Hct 32.6 L 09/15/23 05:57: POC Glucose 128 H 09/15/23 10:55: POC Glucose 163 H 09/15/23 16:46: POC Glucose 133 H Assessment & Plan Assessment/Plan (1) Anemia: PLAN: She will undergo an upper endoscopy to evaluate upper GI tract for blood loss anemia. She has a history of CHF which is associated with angiodysplastic, telangiectasia and other vascular abnormalities such as daily Pham lesions involving the upper GI tract and lower GI tract. Will also look for signs of chronic blood loss such as Alhaji's erosions, gastric antral vascular ectasia, peptic ulcer disease, H. pylori associated gastritis. She was explained alternatives, risk, benefits include not withstanding bleeding, infection, sepsis, perforation, need for emergent urgent . She will have an ASA of 3. Charges/Coding Visit Charges Inpatient E&M: 44178 SNF Init L2
[2023-09-15] MEDS: Pramipexole Di-HCl 0.5 MG Tablet 1.5 MG PO (20:59)
[2023-09-15] MEDS: Atorvastatin Calcium 40 MG Tablet PO (21:03)
[2023-09-15 21:33] LABS: Bedside Glucose 132 mg/dL (74-106)
--- NOTE | 2023-09-15 23:23 | NURSING ---
Patient had ultrasound of kidneys. Results faxed to Dr. Spencer Woodard.
--- NOTE | 2023-09-15 23:29 | NURSING ---
Patient was seen by Dr. Real today. Will have EGD done on Tuesday morning. NPO after midnight.
[2023-09-16 00:53] VITALS: PULSE 89; RESP 16
[2023-09-16] MEDS: Ipratropium/Albuterol Sulfate 3 ML AMPUL.NEB INHALATION ×3 (00:53→19:39)
[2023-09-16 05:41] VITALS: PULSE 74; RESP 18; O2SAT 95
[2023-09-16 06:48] LABS: Bedside Glucose 95 mg/dL (74-106)
[2023-09-16] MEDS: Budesonide Respules 0.5 MG/2 ML AMPUL.NEB. INHALATION ×2 (07:40→19:39)
[2023-09-16 07:45] VITALS: PULSE 78; RESP 20; O2SAT 95
[2023-09-16 11:07] LABS: Bedside Glucose 96 mg/dL (74-106)
[2023-09-16 14:01] VITALS: BP 150/53; PULSE 74; RESP 16; TEMP 36.1; O2SAT 96
--- NOTE | 2023-09-16 14:09 | NURSING ---
Senior Client Advisor Note; Activity Asset: Mikayla Buchanan is independent in her choice of daily activities. While on TCU she will watch tv and read love stories. He Daughter will visit and bring her items she may need as well. She has a smartphone she will use to call or text on. She welcomes visit from the loom mechanic and therapy dog when available. Staff will remind her of weekly activities and respect her right to say no.
[2023-09-16 14:10] LABS: Vitamin D 1,25-Dihydroxy 46.3 pg/mL (24.8-81.5)
[2023-09-16] MEDS: Miconazole Nitrate 43 GM Bottle 1 APPLIC TOPICAL ×2 (14:21→21:29)
[2023-09-16 17:04] LABS: Bedside Glucose 160 mg/dL (74-106)
[2023-09-16] MEDS: Insulin Lispro 100 UNIT/ML INSULN.PEN 10 UNIT SC (17:14)
[2023-09-16 19:39] VITALS: PULSE 81; RESP 18
[2023-09-16] MEDS: DULoxetine Hcl 30 MG Capsule PO (21:23)
[2023-09-16] MEDS: Atorvastatin Calcium 40 MG Tablet PO (21:23)
[2023-09-16] MEDS: Carvedilol 12.5 MG Tablet PO (21:23)
[2023-09-16] MEDS: Pramipexole Di-HCl 0.5 MG Tablet 1.5 MG PO (21:23)
[2023-09-16] MEDS: guaiFENesin/D-Methorphan TAB.SR.12H 2 TABLET PO (21:23)
[2023-09-16 21:50] LABS: Bedside Glucose 166 mg/dL (74-106)
[2023-09-17 06:05] LABS: Bedside Glucose 105 mg/dL (74-106)
[2023-09-17 06:51] LABS: Hematocrit 33.2 % (37-47); Hemoglobin 10.4 g/dL (12.0-15.0)
[2023-09-17] MEDS: Insulin Lispro 100 UNIT/ML INSULN.PEN 10 UNIT SC ×3 (08:13→17:21)
[2023-09-17] MEDS: Multivitamins,Therapeutic Tablet 1 TABLET PO (08:19)
[2023-09-17] MEDS: Insulin Glargine-YFGN 100 UNIT/ML Pen 15 UNIT SC (08:19)
[2023-09-17] MEDS: DULoxetine Hcl 30 MG Capsule PO ×2 (08:20→22:06)
[2023-09-17] MEDS: Losartan Potassium 25 MG Tablet PO (08:20)
[2023-09-17] MEDS: Carvedilol 12.5 MG Tablet PO ×2 (08:20→22:06)
[2023-09-17] MEDS: Cholecalciferol (VIT D3) 25 MCG TABLET (1,000 UNITS) PO (08:21)
[2023-09-17] MEDS: guaiFENesin/D-Methorphan TAB.SR.12H 2 TABLET PO ×2 (08:21→22:07)
[2023-09-17] MEDS: Furosemide 40 MG Tablet PO (08:21)
[2023-09-17] MEDS: Pantoprazole Sodium 40 MG Tablet PO ×2 (08:21→22:06)
[2023-09-17] MEDS: Miconazole Nitrate 43 GM Bottle 1 APPLIC TOPICAL ×2 (08:21→22:08)
[2023-09-17] MEDS: Polyethylene Glycol 3350 17 GM PACKET PO (08:23)
[2023-09-17 10:00] VITALS: PULSE 97; RESP 16; O2SAT 92
[2023-09-17] MEDS: Ferrous Sulfate 325 MG Tablet PO (12:00)
[2023-09-17 12:22] LABS: Bedside Glucose 93 mg/dL (74-106)
[2023-09-17 13:35] VITALS: PULSE 87; RESP 18
[2023-09-17] MEDS: Ipratropium/Albuterol Sulfate 3 ML AMPUL.NEB INHALATION (13:35)
[2023-09-17] MEDS: Albuterol 2.5 MG/3 ML VIAL.NEB. INHALATION (13:35)
[2023-09-17 13:45] VITALS: O2SAT 98
[2023-09-17 14:06] VITALS: BP 112/59; PULSE 86; RESP 17; TEMP 36.3; O2SAT 99
[2023-09-17 17:32] LABS: Bedside Glucose 140 mg/dL (74-106)
[2023-09-17 21:40] LABS: Bedside Glucose 197 mg/dL (74-106)
[2023-09-17] MEDS: Pramipexole Di-HCl 0.5 MG Tablet 1.5 MG PO (22:06)
[2023-09-17] MEDS: Atorvastatin Calcium 40 MG Tablet PO (22:06)
[2023-09-18 06:05] LABS: Bedside Glucose 109 mg/dL (74-106)
[2023-09-18 08:13] VITALS: BP 101/47; PULSE 76; RESP 19; TEMP 36.7; O2SAT 97
[2023-09-18] MEDS: Insulin Lispro 100 UNIT/ML INSULN.PEN 10 UNIT SC ×3 (08:18→17:37)
[2023-09-18] MEDS: Carvedilol 12.5 MG Tablet PO ×2 (08:19→21:19)
[2023-09-18] MEDS: Multivitamins,Therapeutic Tablet 1 TABLET PO (08:19)
[2023-09-18] MEDS: Losartan Potassium 25 MG Tablet PO (08:20)
[2023-09-18] MEDS: DULoxetine Hcl 30 MG Capsule PO ×2 (08:20→21:20)
[2023-09-18] MEDS: Miconazole Nitrate 43 GM Bottle 1 APPLIC TOPICAL ×2 (08:21→21:15)
[2023-09-18] MEDS: Insulin Glargine-YFGN 100 UNIT/ML Pen 15 UNIT SC (08:22)
[2023-09-18] MEDS: Furosemide 40 MG Tablet PO (08:22)
[2023-09-18] MEDS: Polyethylene Glycol 3350 17 GM PACKET PO (08:23)
[2023-09-18] MEDS: Pantoprazole Sodium 40 MG Tablet PO ×2 (08:23→21:18)
[2023-09-18] MEDS: guaiFENesin/D-Methorphan TAB.SR.12H 2 TABLET PO ×2 (08:23→21:18)
[2023-09-18] MEDS: Clopidogrel Bisulfate 75 MG Tablet PO (08:23)
[2023-09-18] MEDS: Cholecalciferol (VIT D3) 25 MCG TABLET (1,000 UNITS) PO (08:23)
[2023-09-18 08:56] VITALS: PULSE 81; RESP 18; O2SAT 95
[2023-09-18] MEDS: Budesonide Respules 0.5 MG/2 ML AMPUL.NEB. INHALATION ×2 (08:56→18:55)
[2023-09-18] MEDS: Ipratropium/Albuterol Sulfate 3 ML AMPUL.NEB INHALATION ×3 (08:56→18:55)
[2023-09-18 09:13] LABS: Bedside Glucose 156 mg/dL (74-106)
[2023-09-18 12:03] LABS: Bedside Glucose 119 mg/dL (74-106)
[2023-09-18 13:20] VITALS: PULSE 73; RESP 16
--- NOTE | 2023-09-18 16:10 | RAD_ITS ---
EXAM: XR CHEST, 2 VIEWS CLINICAL INDICATION: SOB TECHNIQUE: Frontal and lateral views of the chest. COMPARISON: 09/11/2023 FINDINGS: LUNGS AND PLEURAL SPACES: Bibasilar pulmonary opacities may be atelectasis or pneumonia. Possible left pleural effusion. No pneumothorax. HEART: No significant abnormality. Cardiac silhouette not enlarged. MEDIASTINUM: Central airways and mediastinal contour are unremarkable. BONES/JOINTS: No significant abnormality. No acute fracture. SOFT TISSUES: No significant abnormality. RAD/Chest PA and Lateral IMPRESSION: Bibasilar pulmonary opacities may be atelectasis or pneumonia. Possible left pleural effusion. Electronically Signed: Pedro Diaz DO at 16:20 EST ,
--- NOTE | 2023-09-18 16:30 | NURSING ---
pt noted to have increased SOB with exertion but denies SOB. sat 98% on 3 liters oxygen., expiratory wheezing noted, dr mccarthy updated cxray done, new order for doxycycline 100mg x7 days.
[2023-09-18 16:33] LABS: Bedside Glucose 122 mg/dL (74-106)
[2023-09-18] MEDS: Doxycycline 100 MG CAPSULE PO ×2 (17:37→21:16)
[2023-09-18 18:55] VITALS: PULSE 81; RESP 24
[2023-09-18] MEDS: Atorvastatin Calcium 40 MG Tablet PO (21:17)
[2023-09-18] MEDS: Pramipexole Di-HCl 0.5 MG Tablet 1.5 MG PO (21:17)
[2023-09-18 21:37] LABS: Bedside Glucose 143 mg/dL (74-106)
[2023-09-18 22:08] VITALS: BP 131/49; PULSE 86; O2SAT 96
[2023-09-19 01:25] VITALS: PULSE 68; RESP 36
[2023-09-19] MEDS: Ipratropium/Albuterol Sulfate 3 ML AMPUL.NEB INHALATION ×2 (01:25→18:55)
[2023-09-19 06:09] LABS: Bedside Glucose 85 mg/dL (74-106)
--- NOTE | 2023-09-19 08:21 | NURSING ---
Mangle Roller Note; MDS for 09/19/2023 Complete
[2023-09-19 08:57] VITALS: O2SAT 97
[2023-09-19 09:21] VITALS: BP 105/43; PULSE 87; RESP 18; O2SAT 98
[2023-09-19] MEDS: Insulin Lispro 100 UNIT/ML INSULN.PEN 10 UNIT SC ×2 (09:24→12:18)
[2023-09-19] MEDS: Polyethylene Glycol 3350 17 GM PACKET PO (09:27)
[2023-09-19] MEDS: Multivitamins,Therapeutic Tablet 1 TABLET PO (09:27)
[2023-09-19] MEDS: guaiFENesin/D-Methorphan TAB.SR.12H 2 TABLET PO ×2 (09:27→22:56)
[2023-09-19] MEDS: Pantoprazole Sodium 40 MG Tablet PO ×2 (09:27→22:56)
[2023-09-19] MEDS: Cholecalciferol (VIT D3) 25 MCG TABLET (1,000 UNITS) PO (09:27)
[2023-09-19] MEDS: Clopidogrel Bisulfate 75 MG Tablet PO (09:28)
[2023-09-19] MEDS: Doxycycline 100 MG CAPSULE PO ×2 (09:28→22:56)
[2023-09-19] MEDS: Furosemide 40 MG Tablet PO (09:28)
[2023-09-19] MEDS: Losartan Potassium 25 MG Tablet PO (09:28)
[2023-09-19] MEDS: DULoxetine Hcl 30 MG Capsule PO ×2 (09:28→22:56)
[2023-09-19] MEDS: Carvedilol 12.5 MG Tablet PO ×2 (09:29→22:55)
[2023-09-19] MEDS: Miconazole Nitrate 43 GM Bottle 1 APPLIC TOPICAL ×2 (09:33→23:00)
--- NOTE | 2023-09-19 10:47 | NURSING ---
Offered Covid vaccine, VIS provided. Patient refuses at this time.
--- NOTE | 2023-09-19 11:03 | NURSING ---
Removed 16fr turner catheter per orders. 8mL withdrawn from balloon, catheter tip intact. 200mL dark yellow urine drained from catheter bag. Pt tolerated procedure well. Will begin q8hr bladder checks.
[2023-09-19 11:42] LABS: Bedside Glucose 151 mg/dL (74-106)
[2023-09-19] MEDS: Ferrous Sulfate 325 MG Tablet PO (12:17)
[2023-09-19 14:43] VITALS: BP 118/50; PULSE 70; RESP 28; TEMP 36.2; O2SAT 97
--- NOTE | 2023-09-19 16:43 | NURSING ---
~1620, [facility] notifies that pt's FSBS is 42. Pt asymptomatic, drinking apple juice and eating olga crackers. rechecked FSBS at 1640, is now 75. Pt continues asymptomatic and agrees to eat a couple crackers while waiting on supper. Family present at bedside.
[2023-09-19 16:51] LABS: Bedside Glucose 75 mg/dL (74-106)
--- NOTE | 2023-09-19 17:29 | CASEMGMT ---
Social Work BIMS () and PHQ-2 () completed for MDS assessment. Erinn Lees MSW DOCUMENT IMAGING SPECIALIST
[2023-09-19 18:55] VITALS: PULSE 84; RESP 24
[2023-09-19] MEDS: Budesonide Respules 0.5 MG/2 ML AMPUL.NEB. INHALATION (18:55)
[2023-09-19 20:28] LABS: Bedside Glucose 42 mg/dL (74-106)
[2023-09-19 20:28] LABS: Bedside Glucose 44 mg/dL (74-106)
[2023-09-19 21:35] LABS: Bedside Glucose 239 mg/dL (74-106)
[2023-09-19] MEDS: Pramipexole Di-HCl 0.5 MG Tablet 1.5 MG PO (22:56)
[2023-09-19] MEDS: Atorvastatin Calcium 40 MG Tablet PO (22:56)
[2023-09-19 23:45] VITALS: PULSE 82; RESP 20; O2SAT 93
[2023-09-20 00:30] VITALS: PULSE 76; RESP 28
[2023-09-20] MEDS: Ipratropium/Albuterol Sulfate 3 ML AMPUL.NEB INHALATION ×4 (00:30→20:02)
[2023-09-20 05:39] VITALS: RESP 20
--- NOTE | 2023-09-20 05:46 | NURSING ---
plating technician came to nurse's station, reported that patient was laying in her bed with her pants half way up. This nurse entered room, patient laying in bed with bottom half partially dressed, shoes on. Patient had retrieved clothes for the day without calling for assistance. Re-educated patient on use of call light to ring for assistance. Assisted patient with getting dressed completely. Patient currently lying in bed. Call light within reach. Will continue to monitor.
[2023-09-20 06:13] LABS: Absolute Lymphocyte Count 1.12 X10^3/uL (0.83-4.51); Absolute Neutrophil Count 5.6 X10^3/uL (2.0-7.7); Basophil# 0.03 X10^3/uL; Basophil% 0.4 % (0-1); Eosinophil# 0.24 X10^3/uL; Eosinophils% 3.1 % (0-5); Hematocrit 34.3 % (37-47); Hemoglobin 10.9 g/dL (12.0-15.0); Lymphocyte # 1.12 X10^3/ul (0.83-4.51); Lymphocyte % 14.5 % (19-41); Mean Corp Hgb Conc 31.8 g/dL (32-36); Mean Corpuscular Volume 97.4 fL (81-99); Mean Platelet Vol. 10.3 fl (6.2-12.0); Monocyte# 0.66 X10^3/uL; Monocyte% 8.5 % (0-10); NRBC Flagged by Analyzer 0 % (0-5); Neutrophil # 5.64 X10^3/uL (2.7-7.7); Neutrophil % 72.7 % (47-70); Platelet Count 197 K/mm3 (150-450); RBC Distribution Width CV 17.5 % (11.6-14.6); RBC Distribution Width SD 61.6 fl (35.1-43.9); Red Blood Count 3.52 M/mm3 (4.2-5.4); White Blood Count 7.8 K/mm3 (4.4-11.0)
[2023-09-20 06:51] LABS: Bedside Glucose 89 mg/dL (74-106)
[2023-09-20 06:51] LABS: Anion Gap 4 (5-15); BUN 43 mg/dL (7-18); Calcium,Total 8.3 mg/dL (8.5-10.1); Chloride 103 mmol/L (98-107); Creatinine, Serum 1.05 mg/dL (0.55-1.02); EST Glomerular Filtration Rate 53 mL/min (>60); Est Glom Filt Rate - Afr Amer 64 mL/min (>60); Estimated Creatinine Clearance 35.04 ml/min; Glucose 86 mg/dL (74-106); Potassium 4.1 mmol/L (3.5-5.1); Sodium Level 143 mmol/L (136-145)
[2023-09-20] MEDS: Budesonide Respules 0.5 MG/2 ML AMPUL.NEB. INHALATION ×2 (07:15→20:02)
[2023-09-20] MEDS: Multivitamins,Therapeutic Tablet 1 TABLET PO (08:05)
[2023-09-20] MEDS: DULoxetine Hcl 30 MG Capsule PO ×2 (08:05→21:57)
[2023-09-20] MEDS: Miconazole Nitrate 43 GM Bottle 1 APPLIC TOPICAL ×2 (08:05→21:59)
[2023-09-20] MEDS: Carvedilol 12.5 MG Tablet PO ×2 (08:05→21:57)
[2023-09-20] MEDS: Furosemide 40 MG Tablet PO (08:06)
[2023-09-20] MEDS: Insulin Glargine-YFGN 100 UNIT/ML Pen 15 UNIT SC (08:06)
[2023-09-20] MEDS: guaiFENesin/D-Methorphan TAB.SR.12H 2 TABLET PO ×2 (08:06→21:59)
[2023-09-20] MEDS: Doxycycline 100 MG CAPSULE PO ×2 (08:06→21:57)
[2023-09-20] MEDS: Clopidogrel Bisulfate 75 MG Tablet PO (08:06)
[2023-09-20] MEDS: Cholecalciferol (VIT D3) 25 MCG TABLET (1,000 UNITS) PO (08:07)
[2023-09-20] MEDS: Pantoprazole Sodium 40 MG Tablet PO ×2 (08:07→21:58)
[2023-09-20] MEDS: Insulin Lispro 100 UNIT/ML INSULN.PEN 10 UNIT SC ×3 (08:08→17:20)
[2023-09-20 09:13] VITALS: PULSE 81; RESP 20
[2023-09-20] MEDS: Tuberculin,Purif.prot.deriv. 50 TU/ML Vial 0.100000000000000006 ML ID (10:08)
[2023-09-20] MEDS: Acetaminophen 500 MG Tablet 1000 MG PO (10:13)
[2023-09-20] MEDS: Polyethylene Glycol 3350 17 GM PACKET PO (11:10)
[2023-09-20 11:59] LABS: Bedside Glucose 128 mg/dL (74-106)
[2023-09-20 12:31] VITALS: BMI 27.4
[2023-09-20 13:00] VITALS: PULSE 89; RESP 20
--- NOTE | 2023-09-20 13:26 | MDS.RN ---
Information for the mds was obtained from review of the clinical record, interview of resident, staff, and direct observation of resident's care.
[2023-09-20 15:48] VITALS: BP 120/46; PULSE 73; RESP 18; TEMP 36.3; O2SAT 98
[2023-09-20 17:29] LABS: Bedside Glucose 126 mg/dL (74-106)
[2023-09-20] MEDS: Senna/Docusate Sodium 1 Tablet 2 TABLET PO (18:49)
[2023-09-20 20:02] VITALS: PULSE 81; RESP 18
[2023-09-20 21:49] LABS: Bedside Glucose 112 mg/dL (74-106)
[2023-09-20] MEDS: Pramipexole Di-HCl 0.5 MG Tablet 1.5 MG PO (21:58)
[2023-09-20] MEDS: Atorvastatin Calcium 40 MG Tablet PO (21:58)
[2023-09-21] VITALS (7 sets, daily range): BP systolic 109; BP diastolic 48; PULSE 73–103; RESP 16–24; TEMP 36.4; O2SAT 95–98
[2023-09-21] MEDS: Ipratropium/Albuterol Sulfate 3 ML AMPUL.NEB INHALATION ×4 (00:38→18:50)
[2023-09-21 06:33] LABS: Bedside Glucose 80 mg/dL (74-106)
[2023-09-21] MEDS: Budesonide Respules 0.5 MG/2 ML AMPUL.NEB. INHALATION ×2 (06:50→18:50)
--- NOTE | 2023-09-21 08:52 | MDS.RN ---
Information for the mds was obtained from review of the clinical record, interview of resident, staff, and direct observation of resident's care.
[2023-09-21] MEDS: Furosemide 40 MG Tablet PO (09:37)
[2023-09-21] MEDS: guaiFENesin/D-Methorphan TAB.SR.12H 2 TABLET PO ×2 (09:37→21:05)
[2023-09-21] MEDS: Pantoprazole Sodium 40 MG Tablet PO ×2 (09:37→21:06)
[2023-09-21] MEDS: Cholecalciferol (VIT D3) 25 MCG TABLET (1,000 UNITS) PO (09:37)
[2023-09-21] MEDS: Clopidogrel Bisulfate 75 MG Tablet PO (09:38)
[2023-09-21] MEDS: Carvedilol 12.5 MG Tablet PO ×2 (09:38→21:06)
[2023-09-21] MEDS: Multivitamins,Therapeutic Tablet 1 TABLET PO (09:38)
[2023-09-21] MEDS: DULoxetine Hcl 30 MG Capsule PO ×2 (09:38→21:06)
[2023-09-21] MEDS: Doxycycline 100 MG CAPSULE PO ×2 (09:38→21:05)
[2023-09-21] MEDS: Losartan Potassium 25 MG Tablet PO (09:38)
[2023-09-21] MEDS: Miconazole Nitrate 43 GM Bottle 1 APPLIC TOPICAL ×2 (09:39→21:05)
[2023-09-21] MEDS: Insulin Glargine-YFGN 100 UNIT/ML Pen 15 UNIT SC (09:40)
[2023-09-21 11:33] LABS: Bedside Glucose 180 mg/dL (74-106)
[2023-09-21] MEDS: Ferrous Sulfate 325 MG Tablet PO (11:47)
[2023-09-21] MEDS: Insulin Lispro 100 UNIT/ML INSULN.PEN SC ×2 (11:47→17:19)
--- NOTE | 2023-09-21 12:49 | CASEMGMT ---
Social Work IDT met with patient, dtr and son for care plan meeting. Discussed patient's progress in PT/OT/ST/SN. Educated to [facility] insurance with NRD 09/25 and continued stay is not guaranteed. Pt is progressing well, but will remain on continuous O2 at this time, and still needs to improve on steps. Pt lives home alone and needs to be Jc. Encouraged children to attend therapy session to ensure safety and comfort with pt returning home. SW to coordinate DC needs. Will continue to follow. Erinn Lees, RENARD MACARIOW
[2023-09-21 16:41] LABS: Bedside Glucose 146 mg/dL (74-106)
[2023-09-21] MEDS: Spironolactone 25 MG Tablet PO (18:24)
[2023-09-21] MEDS: Pramipexole Di-HCl 0.5 MG Tablet 1.5 MG PO (21:05)
[2023-09-21] MEDS: Atorvastatin Calcium 40 MG Tablet PO (21:06)
[2023-09-21 21:51] LABS: Bedside Glucose 113 mg/dL (74-106)
[2023-09-22] VITALS (7 sets, daily range): BP systolic 113–121; BP diastolic 46–50; PULSE 78–101; RESP 18–26; TEMP 36.2; O2SAT 93–95; BMI 27.1
[2023-09-22] MEDS: Ipratropium/Albuterol Sulfate 3 ML AMPUL.NEB INHALATION ×4 (01:43→19:00)
[2023-09-22 06:14] LABS: Bedside Glucose 84 mg/dL (74-106)
[2023-09-22] MEDS: Budesonide Respules 0.5 MG/2 ML AMPUL.NEB. INHALATION ×2 (07:25→19:00)
[2023-09-22] MEDS: Insulin Lispro 100 UNIT/ML INSULN.PEN SC ×3 (07:52→16:55)
[2023-09-22] MEDS: Spironolactone 25 MG Tablet PO (09:42)
[2023-09-22] MEDS: Pantoprazole Sodium 40 MG Tablet PO ×2 (09:42→20:51)
[2023-09-22] MEDS: Clopidogrel Bisulfate 75 MG Tablet PO (09:44)
[2023-09-22] MEDS: Cholecalciferol (VIT D3) 25 MCG TABLET (1,000 UNITS) PO (09:44)
[2023-09-22] MEDS: Furosemide 40 MG Tablet PO (09:44)
[2023-09-22] MEDS: guaiFENesin/D-Methorphan TAB.SR.12H 2 TABLET PO ×2 (09:45→20:53)
[2023-09-22] MEDS: Multivitamins,Therapeutic Tablet 1 TABLET PO (09:45)
[2023-09-22] MEDS: Carvedilol 12.5 MG Tablet PO ×2 (09:45→20:51)
[2023-09-22] MEDS: Losartan Potassium 25 MG Tablet PO (09:45)
[2023-09-22] MEDS: Insulin Glargine-YFGN 100 UNIT/ML Pen 10 UNIT SC (09:45)
[2023-09-22] MEDS: Doxycycline 100 MG CAPSULE PO ×2 (09:45→20:52)
[2023-09-22] MEDS: DULoxetine Hcl 30 MG Capsule PO ×2 (09:45→20:51)
[2023-09-22] MEDS: Miconazole Nitrate 43 GM Bottle 1 APPLIC TOPICAL ×2 (09:46→20:52)
[2023-09-22 11:03] LABS: Bedside Glucose 153 mg/dL (74-106)
[2023-09-22 16:15] LABS: Bedside Glucose 100 mg/dL (74-106)
[2023-09-22] MEDS: Atorvastatin Calcium 40 MG Tablet PO (20:52)
[2023-09-22] MEDS: Pramipexole Di-HCl 0.5 MG Tablet 1.5 MG PO (20:52)
[2023-09-22 22:14] LABS: Bedside Glucose 155 mg/dL (74-106)
[2023-09-23 05:00] VITALS: BMI 27.2
[2023-09-23 06:45] LABS: Bedside Glucose 94 mg/dL (74-106)
[2023-09-23 07:46] VITALS: PULSE 95; RESP 24; O2SAT 97
[2023-09-23] MEDS: Ipratropium/Albuterol Sulfate 3 ML AMPUL.NEB INHALATION ×3 (07:46→19:37)
[2023-09-23] MEDS: Budesonide Respules 0.5 MG/2 ML AMPUL.NEB. INHALATION ×2 (07:46→19:37)
[2023-09-23] MEDS: Multivitamins,Therapeutic Tablet 1 TABLET PO (08:05)
[2023-09-23] MEDS: Losartan Potassium 25 MG Tablet PO (08:06)
[2023-09-23] MEDS: Carvedilol 12.5 MG Tablet PO ×2 (08:06→22:07)
[2023-09-23] MEDS: Spironolactone 25 MG Tablet PO (08:06)
[2023-09-23] MEDS: DULoxetine Hcl 30 MG Capsule PO ×2 (08:07→22:06)
[2023-09-23] MEDS: Miconazole Nitrate 43 GM Bottle 1 APPLIC TOPICAL ×2 (08:07→22:07)
[2023-09-23] MEDS: Doxycycline 100 MG CAPSULE PO ×2 (08:08→22:07)
[2023-09-23] MEDS: Furosemide 40 MG Tablet PO (08:09)
[2023-09-23] MEDS: Pantoprazole Sodium 40 MG Tablet PO ×2 (08:10→22:07)
[2023-09-23] MEDS: Clopidogrel Bisulfate 75 MG Tablet PO (08:10)
[2023-09-23] MEDS: guaiFENesin/D-Methorphan TAB.SR.12H 2 TABLET PO ×2 (08:10→22:06)
[2023-09-23] MEDS: Cholecalciferol (VIT D3) 25 MCG TABLET (1,000 UNITS) PO (08:11)
[2023-09-23 09:56] VITALS: PULSE 85; RESP 18; O2SAT 95
[2023-09-23 11:19] LABS: Bedside Glucose 156 mg/dL (74-106)
[2023-09-23] MEDS: Ferrous Sulfate 325 MG Tablet PO (11:58)
[2023-09-23 13:16] VITALS: PULSE 93; RESP 16
[2023-09-23 15:17] VITALS: BP 104/59; PULSE 95; RESP 20; TEMP 35.8; O2SAT 94
[2023-09-23 17:08] LABS: Bedside Glucose 193 mg/dL (74-106)
[2023-09-23 19:37] VITALS: PULSE 97; RESP 24
[2023-09-23 21:26] LABS: Bedside Glucose 137 mg/dL (74-106)
[2023-09-23 22:06] VITALS: BP 120/51; PULSE 82; RESP 18; O2SAT 95
[2023-09-23] MEDS: Pramipexole Di-HCl 0.5 MG Tablet 1.5 MG PO (22:06)
[2023-09-23] MEDS: Atorvastatin Calcium 40 MG Tablet PO (22:08)
[2023-09-24 06:55] LABS: Bedside Glucose 111 mg/dL (74-106)
[2023-09-24] MEDS: Carvedilol 12.5 MG Tablet PO ×2 (08:31→21:24)
[2023-09-24] MEDS: Multivitamins,Therapeutic Tablet 1 TABLET PO (08:31)
[2023-09-24] MEDS: Spironolactone 25 MG Tablet PO (08:31)
[2023-09-24] MEDS: DULoxetine Hcl 30 MG Capsule PO ×2 (08:32→21:24)
[2023-09-24] MEDS: Miconazole Nitrate 43 GM Bottle 1 APPLIC TOPICAL ×2 (08:33→21:24)
[2023-09-24] MEDS: Doxycycline 100 MG CAPSULE PO ×2 (08:33→21:22)
[2023-09-24] MEDS: Insulin Glargine-YFGN 100 UNIT/ML Pen 10 UNIT SC (08:33)
[2023-09-24] MEDS: Pantoprazole Sodium 40 MG Tablet PO ×2 (08:34→21:23)
[2023-09-24] MEDS: Polyethylene Glycol 3350 17 GM PACKET PO (08:34)
[2023-09-24] MEDS: Cholecalciferol (VIT D3) 25 MCG TABLET (1,000 UNITS) PO (08:34)
[2023-09-24] MEDS: Clopidogrel Bisulfate 75 MG Tablet PO (08:34)
[2023-09-24] MEDS: guaiFENesin/D-Methorphan TAB.SR.12H 2 TABLET PO ×2 (08:34→21:25)
[2023-09-24 08:45] VITALS: PULSE 94; RESP 20; O2SAT 95
[2023-09-24] MEDS: Albuterol 2.5 MG/3 ML VIAL.NEB. INHALATION (08:55)
[2023-09-24] MEDS: Ipratropium/Albuterol Sulfate 3 ML AMPUL.NEB INHALATION ×3 (08:55→19:55)
[2023-09-24 10:00] VITALS: O2SAT 92
[2023-09-24 11:29] LABS: Bedside Glucose 170 mg/dL (74-106)
[2023-09-24 13:34] VITALS: PULSE 87; RESP 22
[2023-09-24 15:51] VITALS: BP 107/52; PULSE 88; RESP 18; TEMP 36.6; O2SAT 95
[2023-09-24 16:34] LABS: Bedside Glucose 154 mg/dL (74-106)
[2023-09-24 19:55] VITALS: PULSE 94; RESP 20
[2023-09-24] MEDS: Budesonide Respules 0.5 MG/2 ML AMPUL.NEB. INHALATION (19:55)
[2023-09-24 21:15] VITALS: BP 140/55; PULSE 91
[2023-09-24] MEDS: Pramipexole Di-HCl 0.5 MG Tablet 1.5 MG PO (21:23)
[2023-09-24] MEDS: Atorvastatin Calcium 40 MG Tablet PO (21:24)
[2023-09-24 21:45] LABS: Bedside Glucose 200 mg/dL (74-106)
[2023-09-25 05:33] VITALS: BMI 27.1
[2023-09-25 06:32] LABS: Bedside Glucose 113 mg/dL (74-106)
[2023-09-25] MEDS: Budesonide Respules 0.5 MG/2 ML AMPUL.NEB. INHALATION (07:45)
[2023-09-25] MEDS: Ipratropium/Albuterol Sulfate 3 ML AMPUL.NEB INHALATION ×2 (07:45→12:38)
[2023-09-25 07:50] VITALS: PULSE 88; RESP 20; O2SAT 95
[2023-09-25 10:05] VITALS: BP 122/53; PULSE 95; RESP 19; TEMP 36.8; O2SAT 94
[2023-09-25] MEDS: Multivitamins,Therapeutic Tablet 1 TABLET PO (10:08)
[2023-09-25] MEDS: Spironolactone 25 MG Tablet PO (10:08)
[2023-09-25] MEDS: Carvedilol 12.5 MG Tablet PO ×2 (10:09→20:42)
[2023-09-25] MEDS: Losartan Potassium 25 MG Tablet PO (10:09)
[2023-09-25] MEDS: DULoxetine Hcl 30 MG Capsule PO ×2 (10:09→20:41)
[2023-09-25] MEDS: Miconazole Nitrate 43 GM Bottle 1 APPLIC TOPICAL ×2 (10:09→20:45)
[2023-09-25] MEDS: Insulin Glargine-YFGN 100 UNIT/ML Pen 10 UNIT SC (10:10)
[2023-09-25] MEDS: Doxycycline 100 MG CAPSULE PO (10:10)
[2023-09-25] MEDS: Furosemide 40 MG Tablet PO (10:11)
[2023-09-25] MEDS: guaiFENesin/D-Methorphan TAB.SR.12H 2 TABLET PO ×2 (10:11→20:42)
[2023-09-25] MEDS: Clopidogrel Bisulfate 75 MG Tablet PO (10:12)
[2023-09-25] MEDS: Cholecalciferol (VIT D3) 25 MCG TABLET (1,000 UNITS) PO (10:12)
[2023-09-25] MEDS: Pantoprazole Sodium 40 MG Tablet PO ×2 (10:12→20:43)
[2023-09-25 11:17] LABS: Bedside Glucose 161 mg/dL (74-106)
[2023-09-25] MEDS: Ferrous Sulfate 325 MG Tablet PO (12:30)
[2023-09-25 12:38] VITALS: PULSE 91; RESP 18
[2023-09-25 16:30] LABS: Bedside Glucose 142 mg/dL (74-106)
[2023-09-25] MEDS: Pramipexole Di-HCl 0.5 MG Tablet 1.5 MG PO (20:41)
[2023-09-25] MEDS: Atorvastatin Calcium 40 MG Tablet PO (20:42)
[2023-09-25 21:14] VITALS: BP 143/59; PULSE 98
[2023-09-25 21:23] VITALS: PULSE 106; RESP 36; O2SAT 95
[2023-09-25] MEDS: Albuterol 2.5 MG/3 ML VIAL.NEB. INHALATION (21:23)
[2023-09-25 21:25] LABS: Bedside Glucose 180 mg/dL (74-106)
--- NOTE | 2023-09-25 21:45 | NURSING ---
Patient noted to have increased dyspnea at rest as well as with exertion. Just completed Doxycycline. Minimal weight changes noted with daily weight results. New orders received for chest x-ray, labs, as well as IV Lasix and Potassium 20mEq. Received first dose of Lasix this evening. O2 increased to 4L/min via nc. Patient receiving breathing treatments as ordered.
--- NOTE | 2023-09-25 21:50 | RAD_ITS ---
INDICATION: Increased SOB, crackles in bases EXAMINATION/TECHNIQUE: X-RAY - XR Chest 2 Views COMPARISON: 09/18/2023 FINDINGS: LINES/DEVICES: None. LUNGS: Patchy alveolar opacities in the lung bases, and left upper lobe, increased compared to prior. Small bilateral pleural effusions increased. No consolidation. No pneumothorax. MEDIASTINUM: Unremarkable. CARDIAC SILHOUETTE: Not enlarged. BONES AND SOFT TISSUES: No acute abnormalities. RAD/Chest PA and Lateral IMPRESSION: Patchy bilateral airspace disease and small pleural effusions increased, may be due to edema or early pneumonia. Electronically Signed: Elsa Newell MD at 23:03 EDT ,
[2023-09-25 21:52] LABS: Absolute Lymphocyte Count 1.16 X10^3/uL (0.83-4.51); Absolute Neutrophil Count 3.8 X10^3/uL (2.0-7.7); Basophil# 0.04 X10^3/uL; Basophil% 0.7 % (0-1); Eosinophils% 3.4 % (0-5); Hematocrit 33.8 % (37-47); Hemoglobin 10.2 g/dL (12.0-15.0); Lymphocyte # 1.16 X10^3/ul (0.83-4.51); Lymphocyte % 19.7 % (19-41); Mean Corp Hgb Conc 30.2 g/dL (32-36); Mean Corpuscular Hgb 29.8 pg (27.0-32.0); Mean Corpuscular Volume 98.8 fL (81-99); Mean Platelet Vol. 9.8 fl (6.2-12.0); Monocyte# 0.65 X10^3/uL; NRBC Flagged by Analyzer 0 % (0-5); Neutrophil # 3.75 X10^3/uL (2.7-7.7); Neutrophil % 63.5 % (47-70); Platelet Count 197 K/mm3 (150-450); RBC Distribution Width CV 17.9 % (11.6-14.6); RBC Distribution Width SD 64.2 fl (35.1-43.9); Red Blood Count 3.42 M/mm3 (4.2-5.4); White Blood Count 5.9 K/mm3 (4.4-11.0)
[2023-09-25 22:06] LABS: Anion Gap 5 (5-15); BUN 38 mg/dL (7-18); BUN/Creat Ratio 31.7 RATIO (10-20); Calcium,Total 8.2 mg/dL (8.5-10.1); Chloride 103 mmol/L (98-107); EST Glomerular Filtration Rate 45 mL/min (>60); Est Glom Filt Rate - Afr Amer 55 mL/min (>60); Estimated Creatinine Clearance 30.19 ml/min; Glucose 174 mg/dL (74-106); Potassium 4.4 mmol/L (3.5-5.1); Sodium Level 141 mmol/L (136-145)
[2023-09-25 22:08] LABS: BNP,B-Type NATRIURETIC PEPTIDE 106.1 pg/mL (0-100)
[2023-09-25 22:45] VITALS: BP 119/52; PULSE 96
[2023-09-25] MEDS: Furosemide 40 MG/4 ML Vial IV (22:49)
[2023-09-26] MEDS: Acetaminophen 500 MG Tablet 1000 MG PO ×2 (00:59→16:10)
[2023-09-26 01:35] VITALS: PULSE 95; RESP 36; O2SAT 96
[2023-09-26] MEDS: Ipratropium/Albuterol Sulfate 3 ML AMPUL.NEB INHALATION ×4 (01:35→19:51)
--- NOTE | 2023-09-26 02:16 | CPS ---
[0135] Pt. started on Q6 Duoneb tx. I got called to ER during pt.'s tx. Nurses said they could take pt. on tx. if I wasn't able to get back up to TCU in a timely manner.
[2023-09-26 05:38] VITALS: BMI 27.3
[2023-09-26 06:00] VITALS: BP 109/51; PULSE 89
[2023-09-26 06:11] LABS: Bedside Glucose 114 mg/dL (74-106)
[2023-09-26 06:17] LABS: Anion Gap 6 (5-15); BUN 38 mg/dL (7-18); BUN/Creat Ratio 31.1 RATIO (10-20); Calcium,Total 8.1 mg/dL (8.5-10.1); Chloride 101 mmol/L (98-107); Creatinine, Serum 1.22 mg/dL (0.55-1.02); EST Glomerular Filtration Rate 44 mL/min (>60); Est Glom Filt Rate - Afr Amer 54 mL/min (>60); Estimated Creatinine Clearance 29.79 ml/min; Glucose 117 mg/dL (74-106); Sodium Level 141 mmol/L (136-145)
[2023-09-26] MEDS: 0.9% Saline Lock 10 ML Syringe IV ×2 (06:28→20:58)
[2023-09-26] MEDS: Furosemide 40 MG/4 ML Vial IV ×2 (06:30→14:41)
[2023-09-26] MEDS: Potassium Chloride Oral Tablet 20 MEQ PO (08:04)
[2023-09-26] MEDS: Carvedilol 12.5 MG Tablet PO ×2 (08:05→20:52)
[2023-09-26] MEDS: Spironolactone 25 MG Tablet PO (08:05)
[2023-09-26] MEDS: Multivitamins,Therapeutic Tablet 1 TABLET PO (08:05)
[2023-09-26] MEDS: Losartan Potassium 25 MG Tablet PO (08:06)
[2023-09-26] MEDS: Insulin Glargine-YFGN 100 UNIT/ML Pen 10 UNIT SC (08:07)
[2023-09-26] MEDS: DULoxetine Hcl 30 MG Capsule PO ×2 (08:07→20:52)
[2023-09-26] MEDS: Clopidogrel Bisulfate 75 MG Tablet PO (08:08)
[2023-09-26] MEDS: guaiFENesin/D-Methorphan TAB.SR.12H 2 TABLET PO ×2 (08:08→20:49)
[2023-09-26] MEDS: Pantoprazole Sodium 40 MG Tablet PO ×2 (08:08→20:52)
[2023-09-26] MEDS: Cholecalciferol (VIT D3) 25 MCG TABLET (1,000 UNITS) PO (08:09)
[2023-09-26 08:10] VITALS: PULSE 108; RESP 20; O2SAT 96
[2023-09-26] MEDS: Budesonide Respules 0.5 MG/2 ML AMPUL.NEB. INHALATION ×2 (08:10→19:51)
[2023-09-26] MEDS: Miconazole Nitrate 43 GM Bottle 1 APPLIC TOPICAL ×2 (08:18→20:53)
[2023-09-26 11:07] LABS: Bedside Glucose 119 mg/dL (74-106)
[2023-09-26 13:59] VITALS: PULSE 108; RESP 18
[2023-09-26 14:04] VITALS: BP 101/45; PULSE 97; RESP 16; TEMP 36.5; O2SAT 97
[2023-09-26 16:23] LABS: Bedside Glucose 138 mg/dL (74-106)
[2023-09-26 19:51] VITALS: PULSE 93; RESP 26; O2SAT 95
[2023-09-26] MEDS: Atorvastatin Calcium 40 MG Tablet PO (20:49)
[2023-09-26] MEDS: Pramipexole Di-HCl 0.5 MG Tablet 1.5 MG PO (20:50)
[2023-09-26 21:41] LABS: Bedside Glucose 193 mg/dL (74-106)
[2023-09-27] VITALS (9 sets, daily range): BP systolic 96–124; BP diastolic 41–53; PULSE 87–101; RESP 18–26; TEMP 36.1; O2SAT 93–98; BMI 26.7
[2023-09-27] MEDS: Ipratropium/Albuterol Sulfate 3 ML AMPUL.NEB INHALATION ×4 (01:16→20:24)
[2023-09-27] MEDS: 0.9% Saline Lock 10 ML Syringe IV ×3 (05:18→15:19)
[2023-09-27] MEDS: Furosemide 40 MG/4 ML Vial IV ×2 (05:19→15:18)
[2023-09-27 05:47] LABS: Absolute Lymphocyte Count 1.29 X10^3/uL (0.83-4.51); Basophil# 0.03 X10^3/uL; Basophil% 0.6 % (0-1); Eosinophil# 0.22 X10^3/uL; Eosinophils% 4.2 % (0-5); Hematocrit 32.7 % (37-47); Lymphocyte # 1.29 X10^3/ul (0.83-4.51); Lymphocyte % 24.6 % (19-41); Mean Corp Hgb Conc 30.6 g/dL (32-36); Mean Corpuscular Hgb 30.1 pg (27.0-32.0); Mean Corpuscular Volume 98.5 fL (81-99); Mean Platelet Vol. 10.3 fl (6.2-12.0); Monocyte# 0.59 X10^3/uL; Monocyte% 11.3 % (0-10); NRBC Flagged by Analyzer 0 % (0-5); Neutrophil # 2.95 X10^3/uL (2.7-7.7); Neutrophil % 56.2 % (47-70); Platelet Count 181 K/mm3 (150-450); RBC Distribution Width CV 17.9 % (11.6-14.6); RBC Distribution Width SD 64.6 fl (35.1-43.9); Red Blood Count 3.32 M/mm3 (4.2-5.4); White Blood Count 5.2 K/mm3 (4.4-11.0)
[2023-09-27 06:06] LABS: Bedside Glucose 110 mg/dL (74-106)
[2023-09-27 06:38] LABS: Anion Gap 6 (5-15); BUN 48 mg/dL (7-18); BUN/Creat Ratio 33.3 RATIO (10-20); Calcium,Total 8.3 mg/dL (8.5-10.1); Chloride 102 mmol/L (98-107); Creatinine, Serum 1.44 mg/dL (0.55-1.02); EST Glomerular Filtration Rate 37 mL/min (>60); Est Glom Filt Rate - Afr Amer 44 mL/min (>60); Estimated Creatinine Clearance 24.97 ml/min; Glucose 109 mg/dL (74-106); Potassium 4.2 mmol/L (3.5-5.1); Sodium Level 142 mmol/L (136-145)
[2023-09-27] MEDS: Potassium Chloride Oral Tablet 20 MEQ PO (07:53)
[2023-09-27] MEDS: Multivitamins,Therapeutic Tablet 1 TABLET PO (07:53)
--- NOTE | 2023-09-27 09:04 | NURSING ---
Approval received from insurance for CT scan. Approval #[id number]. Order faxed to CT.
[2023-09-27] MEDS: Spironolactone 25 MG Tablet PO (09:52)
[2023-09-27] MEDS: Carvedilol 12.5 MG Tablet PO (09:52)
[2023-09-27] MEDS: DULoxetine Hcl 30 MG Capsule PO ×2 (09:53→21:19)
[2023-09-27] MEDS: Losartan Potassium 25 MG Tablet PO (09:53)
[2023-09-27] MEDS: Miconazole Nitrate 43 GM Bottle 1 APPLIC TOPICAL ×2 (09:54→21:19)
[2023-09-27] MEDS: Insulin Glargine-YFGN 100 UNIT/ML Pen 10 UNIT SC (09:56)
[2023-09-27] MEDS: guaiFENesin/D-Methorphan TAB.SR.12H 2 TABLET PO ×2 (09:57→21:19)
[2023-09-27] MEDS: Clopidogrel Bisulfate 75 MG Tablet PO (09:58)
[2023-09-27] MEDS: Cholecalciferol (VIT D3) 25 MCG TABLET (1,000 UNITS) PO (09:58)
[2023-09-27] MEDS: Pantoprazole Sodium 40 MG Tablet PO ×2 (09:58→21:19)
[2023-09-27 11:03] LABS: Bedside Glucose 137 mg/dL (74-106)
[2023-09-27] MEDS: Ferrous Sulfate 325 MG Tablet PO (15:19)
[2023-09-27 16:47] LABS: Bedside Glucose 146 mg/dL (74-106)
[2023-09-27] MEDS: Budesonide Respules 0.5 MG/2 ML AMPUL.NEB. INHALATION (20:24)
[2023-09-27] MEDS: Atorvastatin Calcium 40 MG Tablet PO (21:19)
[2023-09-27] MEDS: Pramipexole Di-HCl 0.5 MG Tablet 1.5 MG PO (21:19)
[2023-09-28] VITALS (8 sets, daily range): BP systolic 132; BP diastolic 56; PULSE 82–105; RESP 16–30; TEMP 36.3; O2SAT 94–98; BMI 26.5
[2023-09-28] MEDS: Ipratropium/Albuterol Sulfate 3 ML AMPUL.NEB INHALATION ×4 (01:54→20:20)
[2023-09-28 06:18] LABS: Bedside Glucose 95 mg/dL (74-106)
[2023-09-28 06:20] LABS: Anion Gap 3 (5-15); BUN 49 mg/dL (7-18); BUN/Creat Ratio 28.7 RATIO (10-20); Chloride 99 mmol/L (98-107); Creatinine, Serum 1.71 mg/dL (0.55-1.02); EST Glomerular Filtration Rate 30 mL/min (>60); Est Glom Filt Rate - Afr Amer 36 mL/min (>60); Estimated Creatinine Clearance 20.97 ml/min; Glucose 100 mg/dL (74-106); Potassium 4.1 mmol/L (3.5-5.1); Sodium Level 139 mmol/L (136-145)
[2023-09-28] MEDS: Furosemide 40 MG/4 ML Vial IV ×2 (06:26→13:10)
[2023-09-28] MEDS: Budesonide Respules 0.5 MG/2 ML AMPUL.NEB. INHALATION ×2 (07:35→20:20)
[2023-09-28] MEDS: Potassium Chloride Oral Tablet 20 MEQ PO (08:47)
[2023-09-28] MEDS: Carvedilol 12.5 MG Tablet PO (08:47)
[2023-09-28] MEDS: Multivitamins,Therapeutic Tablet 1 TABLET PO (08:47)
[2023-09-28] MEDS: Spironolactone 25 MG Tablet PO (08:47)
[2023-09-28] MEDS: Miconazole Nitrate 43 GM Bottle 1 APPLIC TOPICAL ×2 (08:48→22:07)
[2023-09-28] MEDS: DULoxetine Hcl 30 MG Capsule PO ×2 (08:48→22:04)
[2023-09-28] MEDS: Losartan Potassium 25 MG Tablet PO (08:48)
[2023-09-28] MEDS: guaiFENesin/D-Methorphan TAB.SR.12H 2 TABLET PO ×2 (08:51→22:05)
[2023-09-28] MEDS: Cholecalciferol (VIT D3) 25 MCG TABLET (1,000 UNITS) PO (08:52)
[2023-09-28] MEDS: Clopidogrel Bisulfate 75 MG Tablet PO (08:52)
[2023-09-28] MEDS: Pantoprazole Sodium 40 MG Tablet PO ×2 (08:52→22:05)
[2023-09-28] MEDS: AMOXICILLIN 500 MG CAPSULE PO ×2 (10:42→22:04)
[2023-09-28] MEDS: 0.9% Saline Lock 10 ML Syringe IV (13:12)
[2023-09-28] MEDS: Pramipexole Di-HCl 0.5 MG Tablet 1.5 MG PO (22:04)
[2023-09-28] MEDS: Atorvastatin Calcium 40 MG Tablet PO (22:04)
[2023-09-29] VITALS (8 sets, daily range): BP systolic 104–111; BP diastolic 48; PULSE 99–121; RESP 20–28; TEMP 36.7; O2SAT 92–98; BMI 26.5
[2023-09-29] MEDS: Ipratropium/Albuterol Sulfate 3 ML AMPUL.NEB INHALATION ×3 (01:30→19:24)
[2023-09-29] MEDS: 0.9% Saline Lock 10 ML Syringe IV ×4 (05:29→21:20)
[2023-09-29] MEDS: Furosemide 40 MG/4 ML Vial IV ×2 (05:30→15:57)
[2023-09-29 06:27] LABS: Bedside Glucose 111 mg/dL (74-106)
[2023-09-29] MEDS: Spironolactone 25 MG Tablet PO (08:26)
[2023-09-29] MEDS: Pantoprazole Sodium 40 MG Tablet PO ×2 (08:27→21:17)
[2023-09-29] MEDS: Cholecalciferol (VIT D3) 25 MCG TABLET (1,000 UNITS) PO (08:27)
[2023-09-29] MEDS: Multivitamins,Therapeutic Tablet 1 TABLET PO (08:27)
[2023-09-29] MEDS: Clopidogrel Bisulfate 75 MG Tablet PO (08:28)
[2023-09-29] MEDS: AMOXICILLIN 500 MG CAPSULE PO ×2 (08:28→21:18)
[2023-09-29] MEDS: Losartan Potassium 25 MG Tablet PO (08:28)
[2023-09-29] MEDS: DULoxetine Hcl 30 MG Capsule PO ×2 (08:28→21:18)
[2023-09-29] MEDS: Potassium Chloride Oral Tablet 20 MEQ PO (08:28)
[2023-09-29] MEDS: Insulin Glargine-YFGN 100 UNIT/ML Pen 10 UNIT SC (08:29)
[2023-09-29] MEDS: guaiFENesin/D-Methorphan TAB.SR.12H 2 TABLET PO ×2 (08:30→21:18)
[2023-09-29] MEDS: Miconazole Nitrate 43 GM Bottle 1 APPLIC TOPICAL (08:34)
[2023-09-29] MEDS: Ferrous Sulfate 325 MG Tablet PO (12:58)
[2023-09-29] MEDS: Budesonide Respules 0.5 MG/2 ML AMPUL.NEB. INHALATION (19:24)
[2023-09-29] MEDS: Pramipexole Di-HCl 0.5 MG Tablet 1.5 MG PO (21:18)
[2023-09-29] MEDS: Atorvastatin Calcium 40 MG Tablet PO (21:18)
[2023-09-29] MEDS: Carvedilol 12.5 MG Tablet PO (21:20)
[2023-09-30] VITALS (7 sets, daily range): BP systolic 107; BP diastolic 36–48; PULSE 89–107; RESP 18–30; TEMP 36.5; O2SAT 96; BMI 58.4
[2023-09-30] MEDS: 0.9% Saline Lock 10 ML Syringe IV ×2 (06:39→14:52)
[2023-09-30] MEDS: Furosemide 40 MG/4 ML Vial IV ×2 (06:39→14:52)
[2023-09-30 06:50] LABS: Bedside Glucose 119 mg/dL (74-106)
[2023-09-30] MEDS: Albuterol 2.5 MG/3 ML VIAL.NEB. INHALATION (07:09)
[2023-09-30] MEDS: Budesonide Respules 0.5 MG/2 ML AMPUL.NEB. INHALATION ×2 (07:09→19:10)
[2023-09-30] MEDS: Potassium Chloride Oral Tablet 20 MEQ PO (09:16)
[2023-09-30] MEDS: Spironolactone 25 MG Tablet PO (09:19)
[2023-09-30] MEDS: Multivitamins,Therapeutic Tablet 1 TABLET PO (09:19)
[2023-09-30] MEDS: AMOXICILLIN 500 MG CAPSULE PO ×2 (09:20→21:01)
[2023-09-30] MEDS: Losartan Potassium 25 MG Tablet PO (09:20)
[2023-09-30] MEDS: DULoxetine Hcl 30 MG Capsule PO ×2 (09:20→21:01)
[2023-09-30] MEDS: Carvedilol 12.5 MG Tablet PO (09:20)
[2023-09-30] MEDS: guaiFENesin/D-Methorphan TAB.SR.12H 2 TABLET PO ×2 (09:20→21:01)
[2023-09-30] MEDS: Pantoprazole Sodium 40 MG Tablet PO ×2 (09:21→21:01)
[2023-09-30] MEDS: Clopidogrel Bisulfate 75 MG Tablet PO (09:21)
[2023-09-30] MEDS: Cholecalciferol (VIT D3) 25 MCG TABLET (1,000 UNITS) PO (09:21)
[2023-09-30] MEDS: Insulin Glargine-YFGN 100 UNIT/ML Pen 10 UNIT SC (09:24)
[2023-09-30] MEDS: Miconazole Nitrate 43 GM Bottle 1 APPLIC TOPICAL ×2 (09:29→21:01)
--- NOTE | 2023-09-30 10:32 | NURSING ---
Talked to daughter Dora about CT results and and ATB treatment. Daughter denies further questions at this time.
--- NOTE | 2023-09-30 11:36 | CASEMGMT ---
Addendum entered by Erinn Lees 09/30/23 21:06: Late entry 1630: SW spoke with pt at bedside. Inquired about pt's readiness to DC home and if pt had any concerns. Pt states she has progressed and has no concerns with DC. SW reviewed details such as meals, meds, transportation, medical concerns, assists with ADLs. Pt denies. SW educated to insurance NRD 10/02 and possible DC 10/05. Pt confirmed she would be ready to DC home, but would also appreciate ongoing therapy. SW to coordinate skilled HHC at DC. Pt requesting BSC and rollator at DC as well. SW to coordinate needs. Will continue to follow. Original Note: Social Work SW received call from dtr inquiring about insurance NRD. SW educated to NRD 10/02 and continued stay is not guaranteed with each review. Dtr expressed concern with pt discharging home alone, and unsure if pt still feels the same way. SW offered to speak with pt to assist with DC planning, noting per therapy, pt is making good progress and no major concerns with DC home. Dtr appreciative of follow up. Erinn Lees, [employer] G[employer]OTECTOR DRAFTER CARTOGRAPHIC
[2023-09-30] MEDS: Ipratropium/Albuterol Sulfate 3 ML AMPUL.NEB INHALATION ×2 (13:31→19:10)
[2023-09-30] MEDS: Pramipexole Di-HCl 0.5 MG Tablet 1.5 MG PO (21:01)
[2023-09-30] MEDS: Atorvastatin Calcium 40 MG Tablet PO (21:01)
[2023-10-01] VITALS (9 sets, daily range): BP systolic 85–113; BP diastolic 40–50; PULSE 95–113; RESP 18–26; TEMP 36.5; O2SAT 92–98; BMI 26.3
[2023-10-01] MEDS: 0.9% Saline Lock 10 ML Syringe IV ×2 (05:50→06:03)
[2023-10-01] MEDS: Furosemide 40 MG/4 ML Vial IV (05:53)
[2023-10-01 06:35] LABS: Bedside Glucose 107 mg/dL (74-106)
[2023-10-01] MEDS: Albuterol 2.5 MG/3 ML VIAL.NEB. INHALATION (07:50)
[2023-10-01] MEDS: Ipratropium/Albuterol Sulfate 3 ML AMPUL.NEB INHALATION ×3 (07:50→18:49)
[2023-10-01] MEDS: Spironolactone 25 MG Tablet PO (08:30)
[2023-10-01] MEDS: Multivitamins,Therapeutic Tablet 1 TABLET PO (08:30)
[2023-10-01] MEDS: Potassium Chloride Oral Tablet 20 MEQ PO (08:30)
[2023-10-01] MEDS: Losartan Potassium 25 MG Tablet PO (08:31)
[2023-10-01] MEDS: AMOXICILLIN 500 MG CAPSULE PO ×2 (08:31→21:27)
[2023-10-01] MEDS: Carvedilol 12.5 MG Tablet PO ×2 (08:31→21:25)
[2023-10-01] MEDS: DULoxetine Hcl 30 MG Capsule PO ×2 (08:31→21:24)
[2023-10-01] MEDS: Insulin Glargine-YFGN 100 UNIT/ML Pen 10 UNIT SC (08:32)
[2023-10-01] MEDS: Miconazole Nitrate 43 GM Bottle 1 APPLIC TOPICAL ×2 (08:32→21:28)
[2023-10-01] MEDS: Clopidogrel Bisulfate 75 MG Tablet PO (08:33)
[2023-10-01] MEDS: guaiFENesin/D-Methorphan TAB.SR.12H 2 TABLET PO ×2 (08:33→21:25)
[2023-10-01] MEDS: Pantoprazole Sodium 40 MG Tablet PO ×2 (08:33→21:26)
[2023-10-01] MEDS: Cholecalciferol (VIT D3) 25 MCG TABLET (1,000 UNITS) PO (08:34)
[2023-10-01] MEDS: Ferrous Sulfate 325 MG Tablet PO (13:23)
--- NOTE | 2023-10-01 14:34 | NURSING ---
1400 IV Lasix held d/t decreased BP. @1325: 85/45. @1433: 98/41. Patient is asymptomatic. Will continue to monitor.
[2023-10-01] MEDS: Budesonide Respules 0.5 MG/2 ML AMPUL.NEB. INHALATION (18:49)
[2023-10-01] MEDS: Pramipexole Di-HCl 0.5 MG Tablet 1.5 MG PO (21:25)
[2023-10-01] MEDS: Atorvastatin Calcium 40 MG Tablet PO (21:26)
[2023-10-02 01:15] VITALS: PULSE 100; RESP 28
[2023-10-02] MEDS: Ipratropium/Albuterol Sulfate 3 ML AMPUL.NEB INHALATION ×4 (01:15→18:40)
[2023-10-02 06:00] VITALS: BP 102/43; PULSE 88; BMI 26.9
[2023-10-02 06:49] LABS: Bedside Glucose 96 mg/dL (74-106)
[2023-10-02] MEDS: Budesonide Respules 0.5 MG/2 ML AMPUL.NEB. INHALATION (07:05)
[2023-10-02 07:08] VITALS: PULSE 90; RESP 16; O2SAT 92
--- NOTE | 2023-10-02 08:08 | NURSING ---
Addendum entered by [facility] 10/02/23 16:38: Pt's son Marquis present at bedside, updated on new orders today. Pt and Marquis state that they will update pt's daughter, refused my offer to. No further comments or concerns at this time. Addendum entered by [facility] 10/02/23 13:54: Scheduled Spironalactone and Losartan also discontinued. Addendum entered by [facility] 10/02/23 13:51: Dr. pierson also discontinued IV lasix. Addendum entered by [facility] 10/02/23 13:17: RN called and updated Dr. Pierson, received new orders for BMP and CBC tomorrow (10/02). Original Note: AM dose of IV Lasix held at this time d/t low BP- reflected under vital signs. Last BMP completed on 09/27. Reported to oncoming nurses to f/u with Dr. Pierson to update and obtain new orders.
[2023-10-02 08:39] VITALS: BP 107/40; PULSE 96; RESP 20; TEMP 36.3; O2SAT 94
[2023-10-02] MEDS: AMOXICILLIN 500 MG CAPSULE PO (08:40)
[2023-10-02] MEDS: Carvedilol 12.5 MG Tablet PO (08:41)
[2023-10-02] MEDS: DULoxetine Hcl 30 MG Capsule PO (08:41)
[2023-10-02] MEDS: Pantoprazole Sodium 40 MG Tablet PO (08:41)
[2023-10-02] MEDS: Spironolactone 25 MG Tablet PO (08:42)
[2023-10-02] MEDS: guaiFENesin/D-Methorphan TAB.SR.12H 2 TABLET PO (08:42)
[2023-10-02] MEDS: Clopidogrel Bisulfate 75 MG Tablet PO (08:42)
[2023-10-02] MEDS: Cholecalciferol (VIT D3) 25 MCG TABLET (1,000 UNITS) PO (08:43)
[2023-10-02] MEDS: Potassium Chloride Oral Tablet 20 MEQ PO (08:44)
[2023-10-02] MEDS: Multivitamins,Therapeutic Tablet 1 TABLET PO (08:44)
[2023-10-02] MEDS: Losartan Potassium 25 MG Tablet PO (08:44)
[2023-10-02] MEDS: Miconazole Nitrate 43 GM Bottle 1 APPLIC TOPICAL (08:50)
[2023-10-02] MEDS: Petrolatum 33% Tube 1 APPLIC TOPICAL (11:05)
[2023-10-02 13:04] VITALS: PULSE 100; RESP 16
--- NOTE | 2023-10-02 18:25 | NURSING ---
Addendum entered by Lisa Oro 10/03/23 07:31: RN called report to ER nurse @[id number] (10/01). ER staff asked clarification of pt's recent Covid dx [early august. Addendum entered by Lisa Oro 10/02/23 18:53: Pt completes breathing treatment, assisted by staff to ER this time. Addendum entered by [facility] 10/02/23 18:42: Pt insurance requires prior-auth for CTA. Dr Pierson gave order to send to ER for eval due to concern for PE/worsening eval. Daughter, Dora called and updated. Pt and family in agreement with plan of care. Original Note: RN notifies that pt is short of breath after ambulating from bathroom to bed, episode lasting ~15 minutes. sp02-89% on 2L oxygen, respirations 26. oxygen increased to 3L, sp02 increased to 95% after several minutes. bp-104/57, p109, decreased to 102. wheezes, crackles auscultated. Episode lasted ~20min total. Pt resting with HOB elevated, no complaints at this time. Called respiratory for PRN breathing treatment. Pt completed doxycycline therapy on 09/24, CXR showed possible pneumonia, IV lasix was started same day [09/24]. RN called and notified Dr. Pierson, received orders for: -Levaquin IV (pharmacy to dose) x7days, first dose now. -chest CTA
[2023-10-02 18:40] VITALS: PULSE 101; RESP 32
--- NOTE | 2023-10-02 21:41 | NURSING ---
Spoke w/ Francisca in the ED to follow-up on the status of pt. Informed Francisca the primary reason pt was sent to the ED was to have a CTA completed d/t p's symptoms and inability to have the CTA approved per her insurance today. Pt is off blood thinner d/t anemia. She will update the ER physician.
--- NOTE | 2023-10-03 07:37 | DS.PCM_ITS ---
Providers Date of Admission: 09/12/23 Primary Care Physician: Dr. Anu Mortensen MD Consultations 09/14/23 17:16 Consult: Gastroenterology Routine Consulting Provider: Nancie [facility] Reason for Consult: Anemia requiring transfusion, blood in stool. EMERGENT Consult: No MD Notified: No Date Notified: 09/14/23 Time Notified: 17:16 Reason For Visit: NON-STEMI, EXACERBATION OF COPD Diagnosis Discharge Diagnosis (1) Anemia: Status: Acute Code(s): D64.9 - Anemia, unspecified Plan 87 year old female with below past medical history hospitalized for NSTEMI, acute respiratory failure secondary to influenza A, COPD exacerbation, complicated by right lumbar radiculopathy, acute kidney injury, hyperkalemia, anemia, admitted to TCU with debility, here for rehabilitation, strengthening, prior to discharge home alone. * Debility - PT/OT. * Dysphagia - ST. * Pain - Tylenol 1000mg q6 prn pain (1-10), Arthritis pain 1 click topical daily prn. * Bowel - Miralax 17gm daily, senna/colace 2 tablets bid prn. * Adult immunization - Administer pneumonia vaccine, covid vaccine, flu vaccine as appropriate. * DVT prophylaxis - Hold, anemia. * COPD - Budesonide 0.5mg bid, Duoneb 3ml q6, Albuterol 2.5mg q4 prn, Decadron 2mg bid with taper. * Hyperlipidemia - Atorvastatin 40mg qhs. * HFpEF - Coreg 12.5mg bid, Losartan 25mg daily, Furosemide 40mg daily. * TIA - Plavix 75mg daily. 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 * Iron deficiency anemia - Ferrous sulfate 325mg qod. * Cough - Robitussin DM 2 tablets bid. * Diabetes Mellitus II - Glargine 15 units daily, Humalog 10 units tid. * Tinea Corporis - Miconazole topical bid. * Nutrition - MVI 1 tablet daily. * GERD - Pantoprazole 40mg daily. * Restless Leg syndrome - Mirapex 1.5mg qhs. Medications at Discharge Home Medications atorvastatin 40 mg tablet 40 mg PO QHS cholesterol 02/22/16 clopidogrel 75 mg tablet 75 mg PO DAILY BLOOD THINNER 02/22/16 multivitamin with folic acid 400 mcg tablet 1 tab PO DAILY supplement 02/22/16 albuterol sulfate 90 mcg/actuation aerosol inhaler 2 puff inhalation BID PRN shortness of breath or wheezing 03/16/18 cholecalciferol (vitamin D3) 25 mcg (1,000 unit) tablet 2,500 unit PO DAILY SUPPLEMENT 10/09/18 furosemide 40 mg tablet 40 mg PO DAILY FLUID RETENTION #90 tabs 01/27/22 albuterol sulfate 2.5 mg/3 mL (0.083 %) solution for nebulization 2.5 mg inhalation Q4H PRN shortness of breath or wheezing 05/28/22 ipratropium 0.5 mg-albuterol 3 mg (2.5 mg base)/3 mL nebulization soln 3 ml inhalation Q6H PRN shortness of breath 05/28/22 carvedilol 12.5 mg tablet 12.5 mg PO BID CHOLESTEROL #180 tabs 04/27/23 duloxetine 30 mg capsule,delayed release 30 mg PO BID pain 08/17/23 pramipexole 1.5 mg tablet 1.5 mg PO QHS restless leg syndrome 08/18/23 diclofenac sodium 1 % topical gel 1 inch topical DAILY PRN unknown 09/03/23 aspirin 81 mg tablet,delayed release 81 mg PO BREAKFAST blood 30 days #30 tabs 09/09/23 budesonide 0.5 mg/2 mL suspension for nebulization 0.25 mg inhalation BID breathing 30 days #0 mL 09/09/23 dexamethasone 2 mg tablet See Rx Instructions .Route .COMPLEX breathing #12 tabs 09/09/23 dextromethorphan-guaifenesin 30 mg-600 mg tablet extended [id number] hr (Mucinex DM) 2 tab PO BID cough 7 days #0 tabs 09/09/23 ferrous sulfate 325 mg (65 mg iron) tablet (FeroSul) 325 mg PO QODAY@LUNCH health maintenance #0 tabs 09/09/23 insulin glargine 100 unit/mL (3 mL) subcutaneous pen (Lantus Solostar U-100 Insulin) 15 unit (0.15 mL) subcut DAILY diabetes #15 mL 09/09/23 insulin lispro 100 unit/mL subcutaneous pen (Humalog KwikPen (U-100) Insulin) 10 unit (0.1 mL) subcut TIDAC diabetes #0 mL 09/09/23 insulin lispro 100 unit/mL subcutaneous pen (Humalog KwikPen (U-100) Insulin) See Protocol subcut ACHS diabetes #0 mL 09/09/23 pantoprazole 40 mg tablet,delayed release 40 mg PO DAILY GERD 30 days #30 tabs 09/09/23 polyethylene glycol 3350 17 gram oral powder packet 17 g PO DAILY constipation #0 ea 09/09/23 sennosides 8.6 mg-docusate sodium 50 mg tablet (Stool Softener-Stimulant Laxative) 2 tab PO BID PRN constipation #0 tabs 09/09/23 losartan 50 mg tablet 25 mg (1/2 x 50 mg) PO DAILY BLOOD PRESSURE #90 tabs 09/12/23 Hospital Course Operations None Procedures EGD Summary of Care Provided Minutes Spent on Discharge: 15 Hospital Course: 87 year old female with below past medical history hospitalized for NSTEMI, acute respiratory failure secondary to influenza A, COPD exacerbation, complicated by right lumbar radiculopathy, acute kidney injury, hyperkalemia, anemia, admitted to TCU with debility, here for rehabilitation, strengthening, prior to discharge home alone. 10/02/2023 Resident with worsening oxygen requirements, tachycardia. Discharge to [facility] ED 10/02/2023 for evaluation, possible admission to [facility]. Weight / BMI Weight Weight: 66.338 kg Body Mass Index (BMI) 26.9 ABG / Lab / Microbiology Data 09/27/23 05:13 09/28/23 05:11 Microbiology: Microbiology 09/14/23 07:45 Stool Stool Occult Blood (ROYAL) - Final Occult Blood Positive D/C Instructions Discharge Diet: No restrictions Discharge Activity: Return to Normal Activity, May Shower and Use Walker Weight Bearing Status: Weight bearing as tolerated Call your doctor if you observe: Fever of 101 or Higher, Inability to urinate, Inability to have a bowel movement, Shortness of breath, Dizziness, Fainting spells, Swelling in the ankles, Chest pain and Uncontrolled pain Additional Instructions: Discharge to [facility] 10/02/2023 for evaluation, possible admission to [facility]. Meaningful Use Info Meaningful Use Diagnoses (Choose all that apply): None applicable Discharge Plan Admission Admit Date/Time: 09/12/23 15:35 Primary Reason for Your Visit: NSTEMI, COPD Exacerbation Attending Provider: Richy Pierson Chi Primary Care Provider: Anu Mortensen Instructions Additional Instructions / Restrictions: Discharge to [facility] 10/02/2023 for evaluation, possible admission to [facility]. Discharge Orders/Prescriptions Prescriptions: No Action cholecalciferol (vitamin D3) 1,000 unit tablet 2,500 unit PO DAILY albuterol sulfate 2.5 mg /3 mL (0.083 %) solution for nebulization 2.5 mg inhalation Q4H PRN (Reason: shortness of breath or wheezing) ipratropium-albuterol 0.5 mg-3 mg(2.5 mg base)/3 mL solution for nebulization 3 ml inhalation Q6H PRN (Reason: shortness of breath) duloxetine 30 mg capsule,delayed release(DR/EC) 30 mg PO BID atorvastatin 40 MG tablet 40 mg PO QHS clopidogrel 75 MG tablet 75 mg PO DAILY multivitamin with folic acid 1 TABLET tablet 1 tab PO DAILY albuterol sulfate 90 mcg/actuation HFA aerosol inhaler 2 puff INHALATION BID PRN (Reason: shortness of breath or wheezing) Hold Instructions: Order Changed pramipexole 1.5 mg tablet 1.5 mg PO QHS diclofenac sodium 1 % gel 1 inch TOPICAL DAILY PRN (Reason: unknown) Hold Instructions: not on in tcu Patient Comments: pt using, but unaware of directions polyethylene glycol 3350 17 gram Powder In Packet 17 g PO DAILY Qty: 0 0RF sennosides-docusate sodium [Stool Softener-Stimulant Laxat] 8.6-50 mg Tablet 2 tab PO BID PRN (Reason: constipation) Qty: 0 0RF pantoprazole 40 mg Tablet,Delayed Release (Dr/Ec) 40 mg PO DAILY 30 Days Qty: 30 0RF ferrous sulfate [FeroSul] 325 mg (65 mg iron) Tablet 325 mg PO QODAY@LUNCH Qty: 0 0RF Mucinex DM 30-600 mg Tablet Extended Release 12 Hr 2 tab PO BID 7 Days Qty: 0 0RF aspirin 81 mg Tablet,Delayed Release (Dr/Ec) 81 mg PO BREAKFAST 30 Days Qty: 30 2RF Hold Instructions: no currently on in Tcu insulin lispro [Humalog KwikPen Insulin] 100 unit/mL Insulin Pen See Protocol subcut ACHS Qty: 0 0RF Protocol: 4. Sliding Scale Insulin High-Med Dosing Condition: 150-199 mg/dl = 2 units Condition: 200-259 mg/dl = 4 units Condition: 260-324 mg/dl = 6 units Condition: 325-374 mg/dl = 8 units Condition: 375-409 mg/dl = 10 units Condition: 410-449 mg/dl = 11 units Condition: Greater than 449 call physician Protocol Text: - Use for Total Daily Dose of Insulin 56-80 units - Patient who are insulin resistant or septic HIGH MEDIUM DOSING ALGORITHM insulin lispro [Humalog KwikPen Insulin] 100 unit/mL Insulin Pen 10 unit subcut TIDAC Qty: 0 0RF insulin glargine [Lantus Solostar U-100 Insulin] 100 unit/mL (3 mL) insulin pen 15 unit subcut DAILY Qty: 15 2RF Rx Instructions: Hold if glucose less than 130 mg/dl budesonide 0.5 mg/2 mL suspension for nebulization 0.25 mg inhalation BID 30 Days Qty: 0 0RF dexamethasone 2 mg tablet See Rx Instructions .ROUTE .COMPLEX Qty: 12 0RF Rx Instructions: 2 mg orally twice daily for 3 days and then 2 mg once daily for 3 days, then 1 mg for 6 days and then stop losartan 50 mg tablet 25 mg PO DAILY Qty: 90 3RF Rx Instructions: Hold for SBP less than 130 mmHg furosemide 40 mg tablet 40 mg PO DAILY Qty: 90 3RF Hold Instructions: Hold for 2 days. carvedilol 12.5 mg tablet 12.5 mg PO BID Qty: 180 4RF Rx Instructions: must administer with a meal/food Referrals / Follow Up: Anu Mortensen MD [Primary Care Provider] - Disposition Disposition (needs filled in before D/C Order can be placed): Acute Care Hospital [facility]
== END 2023-10-02 19:00 | disposition short-term general hospital (02) | DRG 193 ==
PROVIDERS: Admitting Provider Family Medicine Geriatric Medicine; PCP Internal Medicine; Visit Provider Family Medicine Geriatric Medicine
DX: J10.1 Influenza due to other identified influenza virus with other respiratory manifestations (principal); I21.4 Non-ST elevation (NSTEMI) myocardial infarction; I13.0 Hypertensive heart and chronic kidney disease with heart failure and stage 1 through stage 4 chronic kidney disease, or unspecified chronic kidney disease; D62 Acute posthemorrhagic anemia; I50.32 Chronic diastolic (congestive) heart failure; J44.1 Chronic obstructive pulmonary disease with (acute) exacerbation; D63.8 Anemia in other chronic diseases classified elsewhere; B35.4 Tinea corporis; E11.22 Type 2 diabetes mellitus with diabetic chronic kidney disease; E11.51 Type 2 diabetes mellitus with diabetic peripheral angiopathy without gangrene; Z79.4 Long term (current) use of insulin; N18.9 Chronic kidney disease, unspecified; G25.81 Restless legs syndrome; F32.A Depression, unspecified; D50.9 Iron deficiency anemia, unspecified; K21.9 Gastro-esophageal reflux disease without esophagitis; E78.5 Hyperlipidemia, unspecified; M54.16 Radiculopathy, lumbar region; J18.9 Pneumonia, unspecified organism; Z87.891 Personal history of nicotine dependence; Z79.82 Long term (current) use of aspirin; Z79.51 Long term (current) use of inhaled steroids; Z79.02 Long term (current) use of antithrombotics/antiplatelets; Z79.899 Other long term (current) drug therapy
CPT/HCPCS: 36415; 71046; 76770; 80048; 80061; 82274; 82652; 82962; 83036; 83880; 85014; 85018; 85025; 86850; 86900; 86901; 86920; 86922; 92508; 92526; 92610; 94640; 94667; 97110; 97116; 97150; 97162; 97166; 97530; 97535; 97802; A4216; J1940; J2405

== ENCOUNTER 2023-09-14 08:20 | Outpatient (CLI) | payer MEDICARE, SELFPAY ==
[2023-09-14] VITALS (7 sets, daily range): BP systolic 96–113; BP diastolic 41–61; PULSE 71–97; RESP 16–20; TEMP 35.9–36.1; O2SAT 93–95
[2023-09-14 11:34] LABS: Bedside Glucose 196 mg/dL (74-106)
[2023-09-14] MEDS: Furosemide 20 MG/2 ML VIAL IV (11:48)
== END 2023-09-14 08:21 | disposition home or self-care (01) ==
LOC: MEDOUTP 08:21
PROVIDERS: PCP Internal Medicine; Referring Provider Family Medicine Geriatric Medicine; Visit Provider Family Medicine Geriatric Medicine
DX: J44.9 Chronic obstructive pulmonary disease, unspecified (principal)
CPT/HCPCS: 36415; 36430; 82962; 86850; 86900; 86901; 86920; 86922; J7040; P9016; A4216; J1940

== ENCOUNTER 2023-09-16 11:04 | Day surgery (SDC) | payer MEDICARE, SELFPAY ==
[2023-09-16] VITALS (7 sets, daily range): BP systolic 89–134; BP diastolic 41–61; PULSE 77–88; RESP 16–19; TEMP 36.1–36.8; O2SAT 92–96; BMI 25.6
[2023-09-16] MEDS: Lactated Ringers 1,000 ML 15 ML IV (11:15)
--- NOTE | 2023-09-16 11:23 | PCM.HP.BLA ---
History and Physical Date of Admission: 09/16/23 DICK ARTIS, is a 87 F who past medical history hospitalized for NSTEMI, acute respiratory failure secondary to influenza A, COPD exacerbation, complicated by right lumbar radiculopathy, acute kidney injury, hyperkalemia, anemia, admitted to TCU with debility, here for rehabilitation, strengthening, prior to discharge home alone. She has a severe anemia with history of chronic anemia from CKD/anemia of chronic disease: Hemoglobin decreased from 8.5-7.5. Her baseline creatinine runs between 9 to 10 g. Her hemoglobin drifted down to 6.8 and required blood transfusions. Her previous iron studies that showed a ferritin of 640, iron 95, TIBC 180, iron saturation of 52. She was diagnosed with acute blood loss anemia in the setting of anemia chronic disease. [facility] Medical History (Updated 09/15/23 @ 19:[address] Valerio Friend, DO) Bilateral carotid artery stenosis Chronic kidney disease Claudication Diverticulosis Dyslipidemia Essential hypertension History of COPD History of TIA (transient ischemic attack) Leg edema Limb weakness Muscle spasm of left shoulder area Neck and back pain PAD (peripheral artery disease) Renal cyst RLS (restless legs syndrome) Shortness of breath Shoulder pain TIA (transient ischemic attack) Vertigo Home Medications atorvastatin 40 mg tablet 40 mg PO QHS cholesterol 02/22/16 [History Last Taken 09/11/23 22:30] clopidogrel 75 mg tablet 75 mg PO DAILY BLOOD THINNER 02/22/16 [History Last Taken 09/12/23 08:15] multivitamin with folic acid 400 mcg tablet 1 tab PO DAILY supplement 02/22/16 [History Last Taken 09/02/23] albuterol sulfate 90 mcg/actuation aerosol inhaler 2 puff inhalation BID PRN shortness of breath or wheezing 03/16/18 [History Last Taken 09/02/23] cholecalciferol (vitamin D3) 25 mcg (1,000 unit) tablet 2,500 unit PO DAILY SUPPLEMENT 10/09/18 [History Last Taken 09/02/23] furosemide 40 mg tablet 40 mg PO DAILY FLUID RETENTION #90 tabs 01/27/22 [Rx Last Taken 09/12/23 08:15] albuterol sulfate 2.5 mg/3 mL (0.083 %) solution for nebulization 2.5 mg inhalation Q4H PRN shortness of breath or wheezing 05/28/22 [History Last Taken 09/03/23] ipratropium 0.5 mg-albuterol 3 mg (2.5 mg base)/3 mL nebulization soln 3 ml inhalation Q6H PRN shortness of breath 05/28/22 [History Last Taken 09/02/23] carvedilol 12.5 mg tablet 12.5 mg PO BID CHOLESTEROL #180 tabs 04/27/23 [Rx Last Taken 09/12/23 08:15] duloxetine 30 mg capsule,delayed release 30 mg PO BID pain 08/17/23 [History Last Taken 09/12/23 08:15] pramipexole 1.5 mg tablet 1.5 mg PO QHS restless leg syndrome 08/18/23 [History Last Taken 09/11/23 22:30] diclofenac sodium 1 % topical gel 1 inch topical DAILY PRN unknown 09/03/23 [History Last Taken Unknown] aspirin 81 mg tablet,delayed release 81 mg PO BREAKFAST blood 30 days #30 tabs 09/09/23 [Rx Last Taken 09/12/23 08:15] budesonide 0.5 mg/2 mL suspension for nebulization 0.25 mg inhalation BID breathing 30 days #0 mL 09/09/23 [Rx Last Taken 09/02/23] dexamethasone 2 mg tablet See Rx Instructions .Route .COMPLEX breathing #12 tabs 09/09/23 [Rx Last Taken Unknown] dextromethorphan-guaifenesin 30 mg-600 mg tablet extended [id number] hr (Mucinex DM) 2 tab PO BID cough 7 days #0 tabs 09/09/23 [Rx Last Taken 09/12/23 08:15] ferrous sulfate 325 mg (65 mg iron) tablet (FeroSul) 325 mg PO QODAY@LUNCH health maintenance #0 tabs 09/09/23 [Rx Last Taken 09/11/23 12:20] insulin glargine 100 unit/mL (3 mL) subcutaneous pen (Lantus Solostar U-100 Insulin) 15 unit (0.15 mL) subcut DAILY diabetes #15 mL 09/09/23 [Rx Last Taken Unknown] insulin lispro 100 unit/mL subcutaneous pen (Humalog KwikPen (U-100) Insulin) 10 unit (0.1 mL) subcut TIDAC diabetes #0 mL 09/09/23 [Rx Last Taken 09/10/23 11:50] insulin lispro 100 unit/mL subcutaneous pen (Humalog KwikPen (U-100) Insulin) See Protocol subcut ACHS diabetes #0 mL 09/09/23 [Rx Last Taken 09/12/23 11:30] pantoprazole 40 mg tablet,delayed release 40 mg PO DAILY GERD 30 days #30 tabs 09/09/23 [Rx Last Taken 09/12/23 08:15] polyethylene glycol 3350 17 gram oral powder packet 17 g PO DAILY constipation #0 ea 09/09/23 [Rx Last Taken 09/11/23 12:20] sennosides 8.6 mg-docusate sodium 50 mg tablet (Stool Softener-Stimulant Laxative) 2 tab PO BID PRN constipation #0 tabs 09/09/23 [Rx Last Taken 09/11/23 10:35] losartan 50 mg tablet 25 mg (1/2 x 50 mg) PO DAILY BLOOD PRESSURE #90 tabs 09/12/23 [Rx Last Taken 09/05/23] Allergy/AdvReac Type Severity Reaction Status Date / Time lisinopril Allergy edema Verified 09/03/23 09:41 aspirin AdvReac Upset Verified 09/03/23 09:41 Stomach Family History Mother Heart disease Surgical History History of basal cell carcinoma excision History of carotid angioplasty History of kidney stones History of thyroid surgery History of total hysterectomy Social History household members: none housing: house Smoking Status: Former smoker how long ago did patient quit smokin years ago alcohol intake: current alcohol intake frequency: holidays/special occasions only details: rare substance use type: does not use caffeine: Yes Type: coffee Number of servings: 1 ROS Constitutional Constitutional: Reports fatigue and weakness; Denies chills, fever(s) or weight gain ENT HEENT: Denies headache(s), nasal congestion or nasal discharge Cardiovascular Cardiovascular: Denies chest pain or palpitations Respiratory/Chest Respiratory/Chest: Denies cough, excessive phlegm production or shortness of breath with exertion Gastrointestinal Gastrointestinal: Denies abdominal pain, nausea or vomiting Genitourinary Genitourinary: Denies dysuria Musculoskeletal Musculoskeletal: Denies joint pain or joint swelling Integumentary Integumentary: Denies rash or wounds Neurologic Neurologic: Denies focal weakness, numbness or tingling Psychiatric Psychiatric: Denies anxiety, auditory hallucinations, depression, homicidal ideation or suicidal ideation Physical Exam Const alert General Appearance: cooperative HEENT normocephalic Eyes PERRL and EOMs intact bilaterally Neck supple, no JVD and no carotid bruits Resp normal respiratory effort and normal air movement Auscultation: rhonchi and wheezes Cardio regular rate and regular rhythm GI normal to inspection, nondistended, normoactive bowel sounds, non-tender and non-distended Extremity normal capillary refill General Extremity: Negative for edema Skin no rashes or lesions noted General Skin Exam: no breakdown Psych affect normal Appearance: appropriate Lab / Micro Data 09/15/23 05:16 09/13/23 05:14 Labs: Laboratory Results - last 24 hr 09/14/23 21:16: POC Glucose 161 H 09/15/23 05:16: Hgb 10.6 L, Hct 32.6 L 09/15/23 05:57: POC Glucose 128 H 09/15/23 10:55: POC Glucose 163 H 09/15/23 16:46: POC Glucose 133 H Assessment & Plan Assessment/Plan (1) Anemia: PLAN: She will undergo an upper endoscopy to evaluate upper GI tract for blood loss anemia. She has a history of CHF which is associated with angiodysplastic, telangiectasia and other vascular abnormalities such as daily Pham lesions involving the upper GI tract and lower GI tract. Will also look for signs of chronic blood loss such as Alhaji's erosions, gastric antral vascular ectasia, peptic ulcer disease, H. pylori associated gastritis. She was explained alternatives, risk, benefits include not withstanding bleeding, infection, sepsis, perforation, need for emergent urgent . She will have an ASA of 3. I have examined the patient and the H&P has been reviewed. There are no clinical changes since date of exam.
--- NOTE | 2023-09-16 12:30 | EGD_PTH ---
PATHOLOGY RESULTS PATIENT: DICK ARTIS LOC: EN U#:[id number] AGE/SX: 87/F ROOM: RE09/16/[address]: Dr. Teodoro Real DO : 1935 BED: DIS: 09/16/2023 SPEC #: [id number] RECD: 09/19/23 08:09 STATUS: ANGELA REMoris #: [id number] PARTH: 09/16/23 12:[address]: Teodoro Real DEPT: SURGICAL PATHOLOGY RECD BY: Tory Mccauley ENTERED: 09/19/23 08:09 SP TYPE: EGD BIOPSY DEE DEE DR: Dr. Anu Mortensen MD Tissues: Duodenum, NOS Procedures: Surgery Specimen Level IV HEADER OPERATION: EGD PRE-OP DIAGNOSIS: Anemia TISSUE SUBMITTED: Duodenal biopsy MICROSCOPIC DIAGNOSIS Duodenum, biopsy: Focal gastric metaplasia. Minimal nonspecific chronic inflammation. AM:katie 09/20/2023 MICROSCOPIC DESCRIPTION Slides are reviewed. GROSS DESCRIPTION Received in fixative is one container labeled with the patient's name and designated duodenal biopsy. The specimen consists of two irregular fragments of light figueroa soft tissue that in aggregate measure 0.6 x 0.5 x 0.1 cm. The specimen is totally submitted in one cassette. / SJ:rg 09/19/2023 TC:3 CPT: 21061
--- NOTE | 2023-09-16 13:48 | OP.CCLET_ITS ---
09/16/2023 Anu Mortensen [address] [place] [address] Re : Upper GI endoscopy procedure for Chanel Rousseau Dear Dr. Mortensen This procedure was performed on Saturday, September 16, 2023. My impressions and recommendations are as follows: Impressions : - LA Grade D erosive esophagitis with bleeding. Treated with a heater probe. - Non-bleeding gastric ulcers with no stigmata of bleeding. Biopsied. - Acute duodenitis. Biopsied. Recommendations : - Return patient to [facility] for ongoing care. - Resume previous diet. - Continue present medications. - Use Protonix (pantoprazole) 40 mg PO BID. My findings are described in the full procedure note, which is enclosed. If I can be of further assistance, please feel free to contact me at . Sincerely, Teodoro Real, 09/16/2023 1:48:10 PM This report has been signed electronically.
--- NOTE | 2023-09-16 13:48 | OP.EGD_ITS ---
Patient Name: Chanel Rousseau Procedure Date: 09/16/2023 12:31 PM Date of : 1935 Age: 87 Procedure: Upper GI endoscopy Indications: Iron deficiency anemia secondary to chronic blood loss, Iron deficiency anemia Providers: Teodoro Real DO Medicines: Monitored Anesthesia Care Patient Profile: This is an 87 year old female. Refer to note in patient chart for documentation of history and physical. Patient has symptoms of acute abdominal distention and acute dyspepsia. Complications: No immediate complications. Procedure: Pre-Anesthesia Assessment: - Prior to the procedure, a History and Physical was performed, and patient medications and allergies were reviewed. The patient is competent. The risks and benefits of the procedure and the sedation options and risks were discussed with the patient. All questions were answered and informed consent was obtained. Patient identification and proposed procedure were verified by the physician in the pre-procedure area. Mental Status Examination: alert and oriented. CV Examination: normal. Prophylactic Antibiotics: The patient does not require prophylactic antibiotics. Prior Anticoagulants: The patient has taken no anticoagulant or antiplatelet agents. ASA Grade Assessment: III - A patient with severe systemic disease. After reviewing the risks and benefits, the patient was deemed in satisfactory condition to undergo the procedure. The anesthesia plan was to use monitored anesthesia care (MAC). Immediately prior to administration of medications, the patient was re-assessed for adequacy to receive sedatives. The heart rate, respiratory rate, oxygen saturations, blood pressure, adequacy of pulmonary ventilation, and response to care were monitored throughout the procedure. The physical status of the patient was re-assessed after the procedure. After obtaining informed consent, the endoscope was passed under direct vision. Throughout the procedure, the patient's blood pressure, pulse, and oxygen saturations were monitored continuously. The gastroscope was introduced through the mouth, and advanced to the second part of duodenum. The upper GI endoscopy was accomplished without difficulty. The patient tolerated the procedure well. Scope In: 12:42:05 PM Scope Out: 12:46:21 PM Total Procedure Duration Time 0 hours 4 minutes 16 seconds Findings: LA Grade D (one or more mucosal breaks involving at least 75% of esophageal circumference) esophagitis with bleeding was found 34 to 39 cm from the incisors. Coagulation for hemostasis using heater probe was successful. Two non-bleeding linear gastric ulcers with no stigmata of bleeding were found in the cardia. The largest lesion was 2 mm in largest dimension. Biopsies were taken with a cold forceps for histology. Verification of patient identification for the specimen was done. Biopsies were taken with a cold forceps for Helicobacter pylori testing. Verification of patient identification for the specimen was done. Estimated blood loss was minimal. Localized mild inflammation characterized by congestion (edema) was found in the duodenal bulb. Biopsies were taken with a cold forceps for histology. Impression: - LA Grade D erosive esophagitis with bleeding. Treated with a heater probe. - Non-bleeding gastric ulcers with no stigmata of bleeding. Biopsied. - Acute duodenitis. Biopsied. Recommendation: - Return patient to hospital [facility] for ongoing care. - Resume previous diet. - Continue present medications. - Use Protonix (pantoprazole) 40 mg PO BID. Procedure Code(s): --- Professional --- 23200, 59, Esophagogastroduodenoscopy, flexible, transoral; with control of bleeding, any method 60030, 51, Esophagogastroduodenoscopy, flexible, transoral; with biopsy, single or multiple CPT copyright 2021 [employer]. All rights reserved. The codes documented in this report are preliminary and upon lens silverer review may be revised to meet current compliance requirements. Teodoro Real DO 09/16/2023 1:48:10 PM This report has been signed electronically. Number of Addenda: 0 Note Initiated On: 09/16/2023 12:31 PM
== END 2023-09-16 13:55 | disposition home or self-care (01) ==
LOC: EN 11:05 → AC 11:05
PROVIDERS: PCP Internal Medicine; Referring Provider Internal Medicine; Visit Provider Internal Medicine Gastroenterology
PROC: 0DJ08ZZ Inspection of Upper Intestinal Tract, Via Natural or Artificial Opening Endoscopic (ICD-10-PCS; CPT 43235; principal; 2023-09-16 12:25)
DX: K31.A0 Gastric intestinal metaplasia, unspecified (principal); J44.9 Chronic obstructive pulmonary disease, unspecified; I50.32 Chronic diastolic (congestive) heart failure; I13.0 Hypertensive heart and chronic kidney disease with heart failure and stage 1 through stage 4 chronic kidney disease, or unspecified chronic kidney disease; N18.30 Chronic kidney disease, stage 3 unspecified; K22.11 Ulcer of esophagus with bleeding; E78.5 Hyperlipidemia, unspecified; Z79.02 Long term (current) use of antithrombotics/antiplatelets; K29.80 Duodenitis without bleeding; Z79.82 Long term (current) use of aspirin; K25.9 Gastric ulcer, unspecified as acute or chronic, without hemorrhage or perforation; Z79.51 Long term (current) use of inhaled steroids; Z87.891 Personal history of nicotine dependence; Z79.899 Other long term (current) drug therapy; D50.0 Iron deficiency anemia secondary to blood loss (chronic)
CPT/HCPCS: 43255; 43239; 88305; J7120

== ENCOUNTER → 2023-09-27 | Outpatient (CLI) | payer MEDICARE, SELFPAY ==
--- NOTE | 2023-09-27 09:14 | CT_ITS ---
STUDY: CT ABDOMEN AND PELVIS WITH CONTRAST REASON FOR EXAM: Female, 88 years old. Diverticulitis of intestine, part unspecified, without perforatio RADIATION DOSAGE (If Supplied By Facility): CTDIvol = ( 16.44 ) mGy, DLP = ( 614.63 ) mGycm TECHNIQUE: Transaxial images were obtained from the dome of the diaphragm to the symphysis pubis without oral contrast. IV 100mL Isovue-300 was administered. Sagittal and coronal images were reconstructed. Individualized dose optimization techniques were used for this CT. COMPARISON: Comparison is made with prior study dated February 03, 2023. FINDINGS: Increased linear markings at the lung bases suggestive of atelectasis and/or scarring. The visualized portions of the heart are within normal limits. Normal liver. Normal gallbladder and extrahepatic biliary system. Normal spleen. There is diffuse atrophy of the pancreas. Normal bilateral adrenal glands. Diffuse right renal atrophy with multiple cysts. Stable 2.9 cm solid nodule in the anterior aspect of the right kidney. Normal left kidney. Gastric distention. There is soft tissue prominence in the distal stomach. A mass lesion should BE ruled out. This is essentially unchanged as compared to prior study. Normal small intestine. There is diverticulosis, with thickening of the colon wall, and pericolonic inflammation changes consistent with acute diverticulitis. There is non-visualization of the appendix. There is diffuse atherosclerotic calcification of the abdominal aorta, without a demonstrated aneurysm. Normal inferior vena cava. Normal retroperitoneum. Normal urinary bladder. There is absence of the uterus consistent with a prior hysterectomy. Normal abdominal wall. There are degenerative changes of the visualized lumbar spine. CT/Abdomen/Pelvis WITH Contrast IMPRESSION: Distended stomach with a soft tissue thickening of its distal portion. This is essentially unchanged as compared to prior study. Mild degree of sigmoid diverticulitis. Atrophy of the right kidney with multiple cysts. Electronically Signed: Ramos Jolley MD at 15:50 EDT ,
== END | disposition home or self-care (01) ==
PROVIDERS: PCP Internal Medicine; Referring Provider Family Medicine Geriatric Medicine; Visit Provider Family Medicine Geriatric Medicine
DX: K57.92 Diverticulitis of intestine, part unspecified, without perforation or abscess without bleeding (principal)
CPT/HCPCS: 74177; Q9967

== ENCOUNTER 2023-10-02 19:01 | Inpatient (IN) | payer MEDICARE, SELFPAY ==
[2023-10-02] VITALS (9 sets, daily range): BP systolic 109–156; BP diastolic 45–64; PULSE 60–104; RESP 20–35; TEMP 36.7–37; O2SAT 83–96; BMI 27.5
--- NOTE | 2023-10-02 19:44 | EKG12_ITS ---
Test Reason : SOB Blood Pressure : / mmHG Vent. Rate : 100 BPM Atrial Rate : 100 BPM P-R Int : 156 ms QRS Dur : 116 ms QT Int : 360 ms P-R-T Axes : 062 201 031 degrees QTc Int : 464 ms Normal sinus rhythm Low voltage QRS Right bundle branch block Septal infarct , age undetermined Abnormal ECG Confirmed by SILVIA GOETZ, TOO ([id number]), editor department CURTIS WETZEL ([id number]) on 10/04/2023 10:49:22 AM Referred By: EILEEN Confirmed By:TOO VEGA MD
[2023-10-02 19:50] LABS: Absolute Lymphocyte Count 1.39 X10^3/uL (0.83-4.51); Absolute Neutrophil Count 5.1 X10^3/uL (2.0-7.7); Basophil# 0.05 X10^3/uL; Basophil% 0.6 % (0-1); Eosinophil# 0.31 X10^3/uL; Hematocrit 31.4 % (37-47); Hemoglobin 9.5 g/dL (12.0-15.0); Lymphocyte # 1.39 X10^3/ul (0.83-4.51); Lymphocyte % 17.8 % (19-41); Mean Corp Hgb Conc 30.3 g/dL (32-36); Mean Corpuscular Hgb 30.1 pg (27.0-32.0); Mean Corpuscular Volume 99.4 fL (81-99); Mean Platelet Vol. 10.4 fl (6.2-12.0); Monocyte# 0.75 X10^3/uL; Monocyte% 9.6 % (0-10); NRBC Flagged by Analyzer 0 % (0-5); Neutrophil # 5.09 X10^3/uL (2.7-7.7); Neutrophil % 65.2 % (47-70); POSITIVE MORPHOLOGY YES; Platelet Count 176 K/mm3 (150-450); RBC Distribution Width CV 17.7 % (11.6-14.6); RBC Distribution Width SD 65.8 fl (35.1-43.9); Red Blood Count 3.16 M/mm3 (4.2-5.4); White Blood Count 7.8 K/mm3 (4.4-11.0)
--- NOTE | 2023-10-02 19:50 | EDS_ITS ---
HPI History of Present Illness Chief Complaint: Shortness of Breath Narrative Narrative: 88-year-old female presenting with shortness of breath. She is currently in the TCU. Patient with recent admission for COPD exacerbation and then subsequently admitted for COVID-19. Patient states her last admission was for pneumonia and she is recovering in the TCU currently. She reports she had a 20-minute episode where she could not catch her breath after ambulating to the bathroom. Patient on 2 L of oxygen at baseline currently. Denies fevers. Does not feel as she has come down with something. Denies chest pain. [facility] Medical History Acute hypoxic respiratory failure Bilateral carotid artery stenosis Chronic kidney disease Claudication Diverticulosis Dyslipidemia Essential hypertension History of COPD History of TIA (transient ischemic attack) Leg edema Limb weakness Muscle spasm of left shoulder area Neck and back pain PAD (peripheral artery disease) Renal cyst RLS (restless legs syndrome) Shortness of breath Shoulder pain TIA (transient ischemic attack) Vertigo Home Medications atorvastatin 40 mg tablet 40 mg PO QHS cholesterol 02/22/16 [History Last Taken 09/15/23] clopidogrel 75 mg tablet 75 mg PO DAILY BLOOD THINNER 02/22/16 [History Last Taken 09/14/23] multivitamin with folic acid 400 mcg tablet 1 tab PO DAILY supplement 02/22/16 [History Last Taken 09/15/23] albuterol sulfate 90 mcg/actuation aerosol inhaler 2 puff inhalation BID PRN shortness of breath or wheezing 03/16/18 [History Last Taken 09/02/23] cholecalciferol (vitamin D3) 25 mcg (1,000 unit) tablet 2,500 unit PO DAILY SUPPLEMENT 10/09/18 [History Last Taken 09/02/23] furosemide 40 mg tablet 40 mg PO DAILY FLUID RETENTION #90 tabs 01/27/22 [Rx Last Taken 09/15/23] albuterol sulfate 2.5 mg/3 mL (0.083 %) solution for nebulization 2.5 mg inhalation Q4H PRN shortness of breath or wheezing 05/28/22 [History Last Taken 09/03/23] ipratropium 0.5 mg-albuterol 3 mg (2.5 mg base)/3 mL nebulization soln 3 ml inhalation Q6H PRN shortness of breath 05/28/22 [History Last Taken 09/02/23] carvedilol 12.5 mg tablet 12.5 mg PO BID CHOLESTEROL #180 tabs 04/27/23 [Rx Last Taken 09/15/23] duloxetine 30 mg capsule,delayed release 30 mg PO BID pain 08/17/23 [History Last Taken 09/15/23] pramipexole 1.5 mg tablet 1.5 mg PO QHS restless leg syndrome 08/18/23 [History Last Taken 09/15/23] diclofenac sodium 1 % topical gel 1 inch topical DAILY PRN unknown 09/03/23 [History Last Taken Unknown] aspirin 81 mg tablet,delayed release 81 mg PO BREAKFAST blood 30 days #30 tabs 09/09/23 [Rx Last Taken 09/12/23 08:15] budesonide 0.5 mg/2 mL suspension for nebulization 0.25 mg inhalation BID breathing 30 days #0 mL 09/09/23 [Rx Last Taken 09/02/23] dexamethasone 2 mg tablet See Rx Instructions .Route .COMPLEX breathing #12 tabs 09/09/23 [Rx Last Taken 09/15/23] dextromethorphan-guaifenesin 30 mg-600 mg tablet extended hr (Mucinex DM) 2 tab PO BID cough 7 days #0 tabs 09/09/23 [Rx Last Taken 09/15/23] ferrous sulfate 325 mg (65 mg iron) tablet (FeroSul) 325 mg PO QODAY@LUNCH health maintenance #0 tabs 09/09/23 [Rx Last Taken 09/15/23] insulin glargine 100 unit/mL (3 mL) subcutaneous pen (Lantus Solostar U-100 Insulin) 15 unit (0.15 mL) subcut DAILY diabetes #15 mL 09/09/23 [Rx Last Taken 09/15/23] insulin lispro 100 unit/mL subcutaneous pen (Humalog KwikPen (U-100) Insulin) 10 unit (0.1 mL) subcut TIDAC diabetes #0 mL 09/09/23 [Rx Last Taken 09/15/23] insulin lispro 100 unit/mL subcutaneous pen (Humalog KwikPen (U-100) Insulin) See Protocol subcut ACHS diabetes #0 mL 09/09/23 [Rx Last Taken 09/12/23 11:30] pantoprazole 40 mg tablet,delayed release 40 mg PO DAILY GERD 30 days #30 tabs 09/09/23 [Rx Last Taken 09/15/23] polyethylene glycol 3350 17 gram oral powder packet 17 g PO DAILY constipation #0 ea 09/09/23 [Rx Last Taken 09/11/23 12:20] sennosides 8.6 mg-docusate sodium 50 mg tablet (Stool Softener-Stimulant Laxative) 2 tab PO BID PRN constipation #0 tabs 09/09/23 [Rx Last Taken 09/11/23 10:35] losartan 50 mg tablet 25 mg (1/2 x 50 mg) PO DAILY BLOOD PRESSURE #90 tabs 09/12/23 [Rx Last Taken 09/15/23] Allergy/AdvReac Type Severity Reaction Status Date / Time lisinopril Allergy edema Verified 09/03/23 09:41 aspirin AdvReac Upset Verified 09/03/23 09:41 Stomach Family History Mother Heart disease Surgical History History of basal cell carcinoma excision History of carotid angioplasty History of kidney stones History of thyroid surgery History of total hysterectomy Social History household members: none housing: house Smoking Status: Former smoker how long ago did patient quit smokin years ago alcohol intake: current alcohol intake frequency: holidays/special occasions only details: rare substance use type: does not use caffeine: Yes Type: coffee Number of servings: 1 ROS ROS ED Constitutional Constitutional ED: Denies chills, fever(s) or sweats Eyes Eyes: Denies blurry vision or change in vision ENT ENT ED: Denies ear pain or sore throat Cardiovascular Cardiovascular: Denies chest pain, palpitations or racing heartbeat Respiratory/Chest Respiratory/Chest: Reports dyspnea and dyspnea on exertion; Denies sputum Gastrointestinal Gastrointestinal: Denies abdominal pain, constipation, diarrhea, nausea or vomiting Genitourinary Genitourinary ED: Denies dysuria, hematuria or urinary frequency Musculoskeletal Musculoskeletal: Denies arthralgias, myalgias or neck pain Integumentary Denies abscess, Abrasions or rash Neurologic Neurologic: Denies headache(s), paresthesias or weakness Psychiatric Psychiatric: Denies anxiety, depression, suicidal ideation or suicidal thoughts Endocrine Endocrinology: Denies polydipsia or polyuria EXAM Physical Exam Const Vital Signs: 10/02/23 19:03 10/02/23 19:02 10/02/23 19:07 Temperature 98.3 F Temperature Source Oral Pulse Rate 101 H 104 H Respiratory Rate 35 H 30 H Respiratory Effort Short of Breath Labored Respiratory Depth Normal Respiratory Pattern Tachypnea Blood Pressure 113/45 L Blood Pressure Mean 67 Pulse Ox 83 96 Oxygen Delivery Method Nasal Cannula Nasal Cannula Nasal Cannula Oxygen Flow Rate (L/min) 3 4 4 10/02/23 19:07 10/02/23 19:48 10/02/23 20:07 Temperature 98.3 F 98.1 F Temperature Source Oral Oral Pulse Rate 103 H 101 H Respiratory Rate 30 H 28 H Respiratory Effort Respiratory Depth Respiratory Pattern Blood Pressure 111/47 L 109/49 L Blood Pressure Mean 68 69 Pulse Ox 96 93 92 Oxygen Delivery Method Nasal Cannula Nasal Cannula Nasal Cannula Oxygen Flow Rate (L/min) 4 2 2.5 10/02/23 20:56 10/02/23 21:00 10/02/23 22:00 Temperature 98.1 F 98.1 F 98.6 F Temperature Source Oral Oral Temporal Pulse Rate 97 103 H 94 Respiratory Rate 28 H 31 H 26 H Respiratory Effort Respiratory Depth Respiratory Pattern Blood Pressure 122/50 H 123/55 H 130/50 H Blood Pressure Mean 74 77 76 Pulse Ox 95 94 95 Oxygen Delivery Method Nasal Cannula Nasal Cannula Nasal Cannula Oxygen Flow Rate (L/min) 3.5 3.5 3 10/02/23 23:00 Temperature 98.2 F Temperature Source Temporal Pulse Rate 60 Respiratory Rate 31 H Respiratory Effort Respiratory Depth Respiratory Pattern Blood Pressure 156/64 H Blood Pressure Mean 94 Pulse Ox 96 Oxygen Delivery Method Bi-pap Oxygen Flow Rate (L/min) 35 Positive well nourished General Appearance ED: NAD HEENT Reports moist mucous membranes Eyes PERRL Neck no lymphadenopathy and supple Resp normal respiratory effort Auscultation: Negative for rales, rhonchi or wheezes Cardio regular rate and regular rhythm Neuro oriented x3 and CN's II-XII intact bilaterally Sensorium / Orientation: alert Motor Exam: strength 5/5 throughout Psych mental status grossly normal Skin no wounds and skin turgor normal MDM MDM MDM Narrative Medical decision making narrative: Patient recently admitted for pneumonia. Differential includes pneumonia, CHF, COPD exacerbation, dehydration, anemia, electrolyte maladies, ACS. CBC was obtained to assess white blood cell count, hemoglobin, platelets. BMP to assess renal function, electrolytes, glucose. High-sensitivity troponin and EKG to assess for ischemia/dysrhythmia. Chest x-ray to rule out pneumonia or CHF. BNP will be obtained to assess for CHF. Patient offered breathing treatments but declines. She does not sound like she is wheezing currently. She is on her baseline oxygen in the bed currently and she feels comfortable. CBC shows normal white blood cell count of 7.8. Hemoglobin 9.5. Platelets 176. Renal function electrolytes near baseline. BNP 43, troponin 17. EKG on my interpretation shows sinus rhythm at 100 bpm without sign ischemic change. Chest x-ray my interpretation shows no acute process. Radiologist interprets this and agrees. Because of patient's risk we did obtain a CTA and there is no evidence of PE but this does show pneumonia. Given her increased hypoxia we will treat her with vancomycin and Zosyn and discussed with hospitalist for admission. Impression: 1. Pneumonia 2. Hypoxia Lab Data Attestation: I reviewed the patient's lab results. Labs: Laboratory Results - last 24 hr 10/02/23 19:10 WBC 7.8 RBC 3.16 L Hgb 9.5 L Hct 31.4 L MCV 99.4 H MCH 30.1 MCHC 30.3 L RDW Std Deviation 65.8 H RDW Coeff of Ha 17.7 H Plt Count 176 MPV 10.4 Immature Gran % (Auto) 2.800 H Neut % (Auto) 65.2 Lymph % (Auto) 17.[address] % (Auto) 9.6 Eos % (Auto) 4.0 Baso % (Auto) 0.6 Absolute Neuts (auto) 5.1 Absolute Lymphs (auto) 1.39 Nucleated RBC % 0 Anisocytosis 1+ Sodium 141 Potassium 4.3 Chloride 105 Carbon Dioxide 32.0 Anion Gap 4 L BUN 54 H Creatinine 1.37 H Estim Creat Clear Calc 26.68 Est GFR (MDRD) Af Amer 47 L Est GFR (MDRD) Non-Af 39 L BUN/Creatinine Ratio 39.4 H Glucose 155 H Calcium 8.1 L Troponin I High Sens 17 B-Natriuretic Peptide 43.1 Radiography Diagnostic Testing: Clinical Impression(s) from Imaging Studies Chest X-Ray 10/02/23 20:20 IMPRESSION: No definite acute or significant abnormality seen. Electronically Signed: Carlos Block MD at 20:58 EDT , Chest CTA 10/02/23 22:00 IMPRESSION: No demonstrated pulmonary embolism or arterial dissection. Left basilar atelectasis. Mild interstitial thickening/scarring. Small patchy areas of possible mild right pulmonary infiltrates. Electronically Signed: Gustavo Pleitez DO at 23:14 EDT , Discharge Plan Triage Chief Complaint: Shortness of Breath ED Provider: Matthew Schuster Dx/Rx/DC Orders Prescriptions: No Action cholecalciferol (vitamin D3) 1,000 unit tablet 2,500 unit PO DAILY albuterol sulfate 2.5 mg /3 mL (0.083 %) solution for nebulization 2.5 mg inhalation Q4H PRN (Reason: shortness of breath or wheezing) ipratropium-albuterol 0.5 mg-3 mg(2.5 mg base)/3 mL solution for nebulization 3 ml inhalation Q6H PRN (Reason: shortness of breath) duloxetine 30 mg capsule,delayed release(DR/EC) 30 mg PO BID atorvastatin 40 MG tablet 40 mg PO QHS clopidogrel 75 MG tablet 75 mg PO DAILY multivitamin with folic acid 1 TABLET tablet 1 tab PO DAILY albuterol sulfate 90 mcg/actuation HFA aerosol inhaler 2 puff INHALATION BID PRN (Reason: shortness of breath or wheezing) Hold Instructions: Order Changed pramipexole 1.5 mg tablet 1.5 mg PO QHS diclofenac sodium 1 % gel 1 inch TOPICAL DAILY PRN (Reason: unknown) Hold Instructions: not on in tcu Patient Comments: pt using, but unaware of directions polyethylene glycol 3350 17 gram Powder In Packet 17 g PO DAILY Qty: 0 0RF sennosides-docusate sodium [Stool Softener-Stimulant Laxat] 8.6-50 mg Tablet 2 tab PO BID PRN (Reason: constipation) Qty: 0 0RF pantoprazole 40 mg Tablet,Delayed Release (Dr/Ec) 40 mg PO DAILY 30 Days Qty: 30 0RF ferrous sulfate [FeroSul] 325 mg (65 mg iron) Tablet 325 mg PO QODAY@LUNCH Qty: 0 0RF Mucinex DM 30-600 mg Tablet Extended Release 12 Hr 2 tab PO BID 7 Days Qty: 0 0RF aspirin 81 mg Tablet,Delayed Release (Dr/Ec) 81 mg PO BREAKFAST 30 Days Qty: 30 2RF Hold Instructions: no currently on in Tcu insulin lispro [Humalog KwikPen Insulin] 100 unit/mL Insulin Pen See Protocol subcut ACHS Qty: 0 0RF Protocol: 4. Sliding Scale Insulin High-Med Dosing Condition: 150-199 mg/dl = 2 units Condition: 200-259 mg/dl = 4 units Condition: 260-324 mg/dl = 6 units Condition: 325-374 mg/dl = 8 units Condition: 375-409 mg/dl = 10 units Condition: 410-449 mg/dl = 11 units Condition: Greater than 449 call physician Protocol Text: - Use for Total Daily Dose of Insulin 56-80 units - Patient who are insulin resistant or septic HIGH MEDIUM DOSING ALGORITHM insulin lispro [Humalog KwikPen Insulin] 100 unit/mL Insulin Pen 10 unit subcut TIDAC Qty: 0 0RF insulin glargine [Lantus Solostar U-100 Insulin] 100 unit/mL (3 mL) insulin pen 15 unit subcut DAILY Qty: 15 2RF Rx Instructions: Hold if glucose less than 130 mg/dl budesonide 0.5 mg/2 mL suspension for nebulization 0.25 mg inhalation BID 30 Days Qty: 0 0RF dexamethasone 2 mg tablet See Rx Instructions .ROUTE .COMPLEX Qty: 12 0RF Rx Instructions: 2 mg orally twice daily for 3 days and then 2 mg once daily for 3 days, then 1 mg for 6 days and then stop losartan 50 mg tablet 25 mg PO DAILY Qty: 90 3RF Rx Instructions: Hold for SBP less than 130 mmHg furosemide 40 mg tablet 40 mg PO DAILY Qty: 90 3RF Hold Instructions: Hold for 2 days. carvedilol 12.5 mg tablet 12.5 mg PO BID Qty: 180 4RF Rx Instructions: must administer with a meal/food Primary Care Provider: Anu Mortensen Referrals: Anu Mortensen MD [Primary Care Provider] -
[2023-10-02 19:51] LABS: Differential Indicated SCAN CRITERIA MET
[2023-10-02 20:06] LABS: Anion Gap 4 (5-15); BUN 54 mg/dL (7-18); BUN/Creat Ratio 39.4 RATIO (10-20); Calcium,Total 8.1 mg/dL (8.5-10.1); Chloride 105 mmol/L (98-107); Creatinine, Serum 1.37 mg/dL (0.55-1.02); EST Glomerular Filtration Rate 39 mL/min (>60); Est Glom Filt Rate - Afr Amer 47 mL/min (>60); Estimated Creatinine Clearance 26.68 ml/min; Glucose 155 mg/dL (74-106); Potassium 4.3 mmol/L (3.5-5.1); Sodium Level 141 mmol/L (136-145); Troponin-I HS 17 pg/mL (3.0-54.0)
[2023-10-02 20:10] LABS: Anisocytosis 1+
--- NOTE | 2023-10-02 20:20 | RAD_ITS ---
STUDY: X-RAY CHEST REASON FOR EXAM: Female, 88 years old. chest pain TECHNIQUE: Single AP portable view of the chest. COMPARISON: 09/27/2023. FINDINGS: The lungs are clear and expanded. Stable mild scarring of the lung bases. There is no demonstrated pleural abnormality. Normal size heart. Normal mediastinum and yamilka. Normal visualized pulmonary arteries. Normal visualized aortic arch and descending thoracic aorta. Normal visualized thoracic spine. Normal visualized ribs, clavicles, and shoulders. There is no demonstrated abnormality of the visualized soft tissue structures of the upper abdomen. RAD/Chest 1 View (Portable) IMPRESSION: No definite acute or significant abnormality seen. Electronically Signed: Carlos Block MD at 20:58 EDT ,
[2023-10-02 20:25] LABS: BNP,B-Type NATRIURETIC PEPTIDE 43.1 pg/mL (0-100)
--- NOTE | 2023-10-02 21:42 | ED.RN ---
214: SPOKE ON PHONE WITH TCU NURSE, BRENDEN YIP. I WAS ASKED IF THERE IS GOING TO BE A CTA OF THE CHEST ORDERED FOR THE PATIENT, PER DOCTOR HEAVEN. SHE WAS INFORMED THAT THE DOCTOR WOULD BE NOTIFIED OF THE RECOMMENDATION.
--- NOTE | 2023-10-02 22:00 | CT_ITS ---
STUDY: CTA CHEST REASON FOR EXAM: Female, 88 years old. Hypoxia RADIATION DOSAGE (If Supplied By Facility): CTDIvol = ( 10.64 ) mGy, DLP = ( 382.96 ) mGycm TECHNIQUE: The examination was performed with the intravenous administration of IV 75mL Isovue-370. Post-processing of the angiographic images was performed, with multiplanar reformation and 3D reconstruction. Individualized dose optimization techniques were used for this CT. COMPARISON: FINDINGS: Normal enhancement of the main pulmonary artery and right and left pulmonary arteries. Normal enhancement of the bilateral peripheral pulmonary arteries. There is no demonstrated pulmonary embolism. Normal thoracic aorta and visualized great vessels. There is no demonstrated aortic dissection. Normal heart and pericardium. Normal mediastinum. Normal hilar regions. Normal visualized trachea and bronchi. The lungs are well expanded. Left basilar atelectasis. Mild interstitial thickening/scarring. Small patchy areas of possible mild right pulmonary infiltrates. Normal pleura. Normal chest wall structures. Normal osseous structures. Normal visualized upper abdomen. CT/CTA Chest W/WO Contrast IMPRESSION: No demonstrated pulmonary embolism or arterial dissection. Left basilar atelectasis. Mild interstitial thickening/scarring. Small patchy areas of possible mild right pulmonary infiltrates. Electronically Signed: Gustavo Pleitez DO at 23:14 EDT ,
[2023-10-02] MEDS: 0.9% Normal Saline (1000mL) 1,000 ML 75 ML IV (22:34)
--- NOTE | 2023-10-02 23:30 | PCM.HP.STD ---
[facility] - General General Date of Admission: 10/03/23 Date of Service: 10/02/23 Chief Complaint: SOB. [facility] Narrative DICK ARTIS, is a 88 F with a past medical history of essential hypertension, hyperlipidemia, overweight; with BMI of 27.5 this admission, DM-2; of unknown control, CAD; s/p NSTEMI, chronic diastolic CHF; with preserved LVEF, history of bilateral carotid stenosis; s/p carotid angioplasty, history of TIA, PVD; with history of claudication, CKD; stage IIIb, chronic iron deficiency anemia, RLS, history of vertigo, depression, GERD, OA; with spinal stenosis causing Right radicular pain and chronic debility, history of tobacco abuse; with subsequent COPD with chronic hypoxic respiratory failure on 2L NC and recent admission here from September 03, 2023 to September 12, 2023 for treatment of NSTEMI and AE COPD in the setting of recent COVID-19 who was then sent TCU for rehabilitation who was using the bathroom on TCU when she became severely SOB with her oxygen saturations dropping into the ~80% range on RA which caused her to be sent to the ER for further evaluation and treatment. She states her severe SOB lasted for ~20 minutes with her being unable to cath her breath during that timeframe but now her breathing has improved with her supplemental oxygen increased to 3.5 L nasal cannula. She denies associated fever, chills, nausea, vomiting, chest pain, wheezing or LE edema but she does admit to constipation with straining at stools that seem to trigger her symptoms. In the ER her CT scan of the chest was negative for PE but did reveal evidence of small patch areas of Right pulmonary infiltrates consistent with suspected Nosocomial Pneumonia complicated by clinical evidence of cyiar-md-vjrrdco hypoxic respiratory insufficiency and she was then admitted to the general medical floor for ongoing care for a stay that is expected to be greater than 48 hours. [facility] Medical History Acute hypoxic respiratory failure Bilateral carotid artery stenosis Chronic kidney disease Claudication Diverticulosis Dyslipidemia Essential hypertension History of COPD History of TIA (transient ischemic attack) Leg edema Limb weakness Muscle spasm of left shoulder area Neck and back pain PAD (peripheral artery disease) Renal cyst RLS (restless legs syndrome) Shortness of breath Shoulder pain TIA (transient ischemic attack) Vertigo Home Medications atorvastatin 40 mg tablet 40 mg PO QHS cholesterol 02/22/16 [History Last Taken 09/15/23] clopidogrel 75 mg tablet 75 mg PO DAILY BLOOD THINNER 02/22/16 [History Last Taken 09/14/23] multivitamin with folic acid 400 mcg tablet 1 tab PO DAILY supplement 02/22/16 [History Last Taken 09/15/23] albuterol sulfate 90 mcg/actuation aerosol inhaler 2 puff inhalation BID PRN shortness of breath or wheezing 03/16/18 [History Last Taken 09/02/23] cholecalciferol (vitamin D3) 25 mcg (1,000 unit) tablet 2,500 unit PO DAILY SUPPLEMENT 10/09/18 [History Last Taken 09/02/23] furosemide 40 mg tablet 40 mg PO DAILY FLUID RETENTION #90 tabs 01/27/22 [Rx Last Taken 09/15/23] albuterol sulfate 2.5 mg/3 mL (0.083 %) solution for nebulization 2.5 mg inhalation Q4H PRN shortness of breath or wheezing 05/28/22 [History Last Taken 09/03/23] ipratropium 0.5 mg-albuterol 3 mg (2.5 mg base)/3 mL nebulization soln 3 ml inhalation Q6H PRN shortness of breath 05/28/22 [History Last Taken 09/02/23] carvedilol 12.5 mg tablet 12.5 mg PO BID CHOLESTEROL #180 tabs 04/27/23 [Rx Last Taken 09/15/23] duloxetine 30 mg capsule,delayed release 30 mg PO BID pain 08/17/23 [History Last Taken 09/15/23] pramipexole 1.5 mg tablet 1.5 mg PO QHS restless leg syndrome 08/18/23 [History Last Taken 09/15/23] diclofenac sodium 1 % topical gel 1 inch topical DAILY PRN unknown 09/03/23 [History Last Taken Unknown] aspirin 81 mg tablet,delayed release 81 mg PO BREAKFAST blood 30 days #30 tabs 09/09/23 [Rx Last Taken 09/12/23 08:15] budesonide 0.5 mg/2 mL suspension for nebulization 0.25 mg inhalation BID breathing 30 days #0 mL 09/09/23 [Rx Last Taken 09/02/23] dexamethasone 2 mg tablet See Rx Instructions .Route .COMPLEX breathing #12 tabs 09/09/23 [Rx Last Taken 09/15/23] dextromethorphan-guaifenesin 30 mg-600 mg tablet extended [id number] hr (Mucinex DM) 2 tab PO BID cough 7 days #0 tabs 09/09/23 [Rx Last Taken 09/15/23] ferrous sulfate 325 mg (65 mg iron) tablet (FeroSul) 325 mg PO QODAY@LUNCH health maintenance #0 tabs 09/09/23 [Rx Last Taken 09/15/23] insulin glargine 100 unit/mL (3 mL) subcutaneous pen (Lantus Solostar U-100 Insulin) 15 unit (0.15 mL) subcut DAILY diabetes #15 mL 09/09/23 [Rx Last Taken 09/15/23] insulin lispro 100 unit/mL subcutaneous pen (Humalog KwikPen (U-100) Insulin) 10 unit (0.1 mL) subcut TIDAC diabetes #0 mL 09/09/23 [Rx Last Taken 09/15/23] insulin lispro 100 unit/mL subcutaneous pen (Humalog KwikPen (U-100) Insulin) See Protocol subcut ACHS diabetes #0 mL 09/09/23 [Rx Last Taken 09/12/23 11:30] pantoprazole 40 mg tablet,delayed release 40 mg PO DAILY GERD 30 days #30 tabs 09/09/23 [Rx Last Taken 09/15/23] polyethylene glycol 3350 17 gram oral powder packet 17 g PO DAILY constipation #0 ea 09/09/23 [Rx Last Taken 09/11/23 12:20] sennosides 8.6 mg-docusate sodium 50 mg tablet (Stool Softener-Stimulant Laxative) 2 tab PO BID PRN constipation #0 tabs 09/09/23 [Rx Last Taken 09/11/23 10:35] losartan 50 mg tablet 25 mg (1/2 x 50 mg) PO DAILY BLOOD PRESSURE #90 tabs 09/12/23 [Rx Last Taken 09/15/23] Allergy/AdvReac Type Severity Reaction Status Date / Time lisinopril Allergy edema Verified 09/03/23 09:41 aspirin AdvReac Upset Verified 09/03/23 09:41 Stomach Family History Mother Heart disease Surgical History History of basal cell carcinoma excision History of carotid angioplasty History of kidney stones History of thyroid surgery History of total hysterectomy Social History household members: none housing: house Smoking Status: Former smoker how long ago did patient quit smokin years ago alcohol intake: current alcohol intake frequency: holidays/special occasions only details: rare substance use type: does not use caffeine: Yes Type: coffee Number of servings: 1 ROS ROS Narrative Review of systems: General: Patient denies fever or chills. HENT: Denies headache, denies stuffy nose, denies sore throat EYES: Denies changes in vision or discharge from eyes. Resp: Patient admits to dyspnea on exertion while going to the bathroom that devolved into persistent shortness of breath at rest as per HPI. Cardiac: Denies chest pain or palpitations. GI: Denies abdominal pain, denies changes in bowel, denies vomiting or nausea : Denies changes in urination Extremity: Denies swelling Musculoskeletal: Feels somewhat generally weak and unwell Neuro: Patient denies headache, paresthesias or focal neurologic deficits. Heme: Denies any bleeding or bruising Skin: Denies rashes Psychiatric: No complaints voiced related to uncontrolled depression or anxiety Endocrine: No polyuria, polydipsia or polyphagia. The rest of the 14 point ROS was negative except for positives in HPI. Vital Signs Vital Signs Vital Signs: 10/02/23 19:03 10/02/23 19:02 10/02/23 19:07 Temperature 98.3 F Temperature Source Oral Pulse Rate 101 H 104 H Respiratory Rate 35 H 30 H Respiratory Effort Short of Breath Labored Respiratory Depth Normal Respiratory Pattern Tachypnea Blood Pressure 113/45 L Blood Pressure Mean 67 Pulse Ox 83 96 Oxygen Delivery Method Nasal Cannula Nasal Cannula Nasal Cannula Oxygen Flow Rate (L/min) 3 4 4 10/02/23 19:07 10/02/23 19:48 10/02/23 20:07 Temperature 98.3 F 98.1 F Temperature Source Oral Oral Pulse Rate 103 H 101 H Respiratory Rate 30 H 28 H Respiratory Effort Respiratory Depth Respiratory Pattern Blood Pressure 111/47 L 109/49 L Blood Pressure Mean 68 69 Pulse Ox 96 93 92 Oxygen Delivery Method Nasal Cannula Nasal Cannula Nasal Cannula Oxygen Flow Rate (L/min) 4 2 2.5 10/02/23 20:56 10/02/23 21:00 10/02/23 22:00 Temperature 98.1 F 98.1 F 98.6 F Temperature Source Oral Oral Temporal Pulse Rate 97 103 H 94 Respiratory Rate 28 H 31 H 26 H Respiratory Effort Respiratory Depth Respiratory Pattern Blood Pressure 122/50 H 123/55 H 130/50 H Blood Pressure Mean 74 77 76 Pulse Ox 95 94 95 Oxygen Delivery Method Nasal Cannula Nasal Cannula Nasal Cannula Oxygen Flow Rate (L/min) 3.5 3.5 3 10/02/23 23:00 Temperature 98.2 F Temperature Source Temporal Pulse Rate 60 Respiratory Rate 31 H Respiratory Effort Respiratory Depth Respiratory Pattern Blood Pressure 156/64 H Blood Pressure Mean 94 Pulse Ox 96 Oxygen Delivery Method Bi-pap Oxygen Flow Rate (L/min) 35 Weight Weight: 150 lb 5.684 oz Body Mass Index (BMI) 27.5 Physical Exam Const alert, oriented x3 and no apparent distress General Appearance: cooperative HEENT normocephalic, head/scalp atraumatic, hearing grossly normal bilaterally and moist oral mucous membranes Eyes PERRL and EOMs intact bilaterally Neck no lymphadenopathy and supple Resp Resp Narrative: Diminished breath sounds on the right greater than left. Cardio regular rate and regular rhythm GI normal to inspection, nondistended, normoactive bowel sounds, soft to palpation, non-tender and non-distended Extremity normal to inspection, full ROM and no clubbing, cyanosis or edema Skin Skin Narrative: Patient has no evidence of rash at this time. Neuro oriented x3, CN's II-XII intact bilaterally, moves all extremities and no focal motor deficits Sensorium / Orientation: awake, alert, oriented to person, oriented to place and oriented to time Speech: speech normal Psych affect normal Results Medical Records Data Attestation: I reviewed the patient's medical records Lab / Micro Data Attestation: I reviewed the patient's lab results. 10/02/23 19:10 10/02/23 19:10 Labs: Laboratory Results - last 24 hr 10/02/23 19:10: WBC 7.8, RBC 3.16 L, Hgb 9.5 L, Hct 31.4 L, MCV 99.4 H, MCH 30.1, MCHC 30.3 L, RDW Std Deviation 65.8 H, RDW Coeff of Ha 17.7 H, Plt Count 176, MPV 10.4, Immature Gran % (Auto) 2.800 H, Neut % (Auto) 65.2, Lymph % (Auto) 17.8 L, [place] % (Auto) 9.6, Eos % (Auto) 4.0, Baso % (Auto) 0.6, Absolute Neuts (auto) 5.1, Absolute Lymphs (auto) 1.39, Nucleated RBC % 0, Anisocytosis 1+, Sodium 141, Potassium 4.3, Chloride 105, Carbon Dioxide 32.0, Anion Gap 4 L, BUN 54 H, Creatinine 1.37 H, Estim Creat Clear Calc 26.68, Est GFR (MDRD) Af Amer 47 L, Est GFR (MDRD) Non-Af 39 L, BUN/Creatinine Ratio 39.4 H, Glucose 155 H, Calcium 8.1 L, Troponin I High Sens 17, B-Natriuretic Peptide 43.1 Imaging Radiology Impression Chest X-Ray 10/02/23 20:20 IMPRESSION: No definite acute or significant abnormality seen. Electronically Signed: Carlos Block MD at 20:58 EDT , Chest CTA 10/02/23 22:00 IMPRESSION: No demonstrated pulmonary embolism or arterial dissection. Left basilar atelectasis. Mild interstitial thickening/scarring. Small patchy areas of possible mild right pulmonary infiltrates. Electronically Signed: Gustavo Pleitez DO at 23:14 EDT , Assessment & Plan Assessment/Plan (1) Pneumonia: QUALIFIERS: Pneumonia type: due to unspecified organism Laterality: right Lung location: unspecified part of lung Qualified Code(s): J18.9 - Pneumonia, unspecified organism (2) Respiratory insufficiency: PLAN: Plan 1. Patchy right-sided infiltrates on CT this admission consistent with suspected nosocomial pneumonia - Admit to general medical floor. Continue broad-spectrum antibiotics with IV vancomycin and IV Zosyn began in the ER and await culture and sensitivity data. Check urine antigens for Streptococcus pneumonia and Legionella. Check sputum cultures. Give Tylenol as needed pain or fever. 2. Dyubp-wr-qaofzat hypoxic respiratory insufficiency arising from #1 - Wean additional supplemental oxygen as tolerated back down to baseline levels. Patient warned not to strain at stools and to ask for laxatives as needed. 3. History of tobacco abuse; with subsequent COPD and no evidence of flare at this time - Continue as needed nebulizers. Patient quit smoking 2 years ago. 4. Recent admission here from September 03, 2023 to September 12, 2023 for treatment of NSTEMI and AE COPD in the setting of recent COVID-19 who was then sent TCU for rehabilitation who was using the bathroom on TCU - Noted. 5. OA; with spinal stenosis causing Right radicular pain and chronic debility - Stable. Return patient to TCU when medically appropriate. 6. Essential hypertension - Continue home medications as previous plus give prn IV Hydralazine for systolic blood pressure > 160 mm Hg. 7. Hyperlipidemia - Resume statin. 8. Overweight; with BMI of 27.5 this admission - Weight loss will be recommended. 9. DM-2; of unknown control - ADA diet. FSBS q. AC/HS plus SSI. Check HgbA1c. 10. CAD; s/p NSTEMI - Continue baby aspirin, Plavix and statin as previous. 11. Chronic diastolic CHF; with preserved LVEF - Stable with no evidence of flare at this time evidenced by imaging negative for infiltrates and BNP of 43 pg/mL present on admission. 12. History of bilateral carotid stenosis; s/p carotid angioplasty - Stable. 13. History of TIA - Noted. Continue antiplatelets already ordered for #9. 14. PVD; with history of claudication - Noted. 15. CKD; stage IIIb - Stable. Check daily BMP to ensure continued stability. 16. Chronic iron deficiency anemia - Stable with hemoglobin of 9.5 g/dL present on admission. Resume iron supplementation as previous. 17. RLS - Noted. 18. History of vertigo - Give Antivert as needed. 19. Depression - Resume current antidepressant regimen and give Xanax as needed for breakthrough symptoms. 20. GERD - Continue PPI. 21. DVT prophylaxis - Lovenox 40 mg subcu daily. Total time: Approximately 55 minutes. Charges/Coding Visit Charges Inpatient E&M: 48232 Init Hosp L2
[2023-10-03] VITALS (19 sets, daily range): BP systolic 110–145; BP diastolic 44–81; PULSE 90–117; RESP 18–29; TEMP 36.3–36.9; O2SAT 93–97; BMI 27.1
[2023-10-03] MEDS: Ipratropium/Albuterol Sulfate 3 ML AMPUL.NEB INHALATION ×4 (01:40→19:19)
[2023-10-03] MEDS: Vancomycin HCl 1,750 MG in 0.9% Normal Saline (500mL Bag) 500 ML 250 MG IV (02:07)
[2023-10-03] MEDS: Albuterol 2.5 MG/3 ML VIAL.NEB. INHALATION (04:33)
[2023-10-03] MEDS: Budesonide Respules 0.5 MG/2 ML AMPUL.NEB. 0.25 MG INHALATION ×3 (04:33→19:19)
[2023-10-03] MEDS: Piperacil/Tazobactam 3.375 GM in 0.9% Normal Saline (50mL MB+) 50 ML IV (06:30)
[2023-10-03 06:55] LABS: Bedside Glucose 117 mg/dL (74-106)
--- NOTE | 2023-10-03 07:09 | PCM.PN.HOSP ---
Reason for Visit Reason for Visit: Diagnoses Pneumonia, unspecified organism (10/03/23) Other abnormalities of breathing (10/03/23) Subjective Subjective Feeling short of breath. Objective Data Objective Data Vital Signs: Vital Signs Temp Pulse Resp BP Pulse Ox O2 Del Method O2 Flow Rate 36.6 C 100 20 H 111/81 H 93 Nasal Cannula 3 10/03/23 06:24 10/03/23 07:01 10/03/23 07:01 10/03/23 06:24 10/03/23 07:01 10/03/23 07:01 10/03/23 07:01 Oxygen Flow Rate (L/min) 3 Oxygen Delivery Method Nasal Cannula Weight: 67.404 kg Body Mass Index (BMI) 27.1 Intake & Output: Intake and Output for Last 24 Hours 10/01/23 10/02/23 10/03/23 23:59 23:59 23:59 Intake Total 801.25 / 801.25 Balance 801.25 / 801.25 Lab / Micro Data 10/02/23 19:10 10/02/23 19:10 Labs: Laboratory Results - last 24 hr 10/02/23 19:10: WBC 7.8, RBC 3.16 L, Hgb 9.5 L, Hct 31.4 L, MCV 99.4 H, MCH 30.1, MCHC 30.3 L, RDW Std Deviation 65.8 H, RDW Coeff of Ha 17.7 H, Plt Count 176, MPV 10.4, Immature Gran % (Auto) 2.800 H, Neut % (Auto) 65.2, Lymph % (Auto) 17.8 L, [place] % (Auto) 9.6, Eos % (Auto) 4.0, Baso % (Auto) 0.6, Absolute Neuts (auto) 5.1, Absolute Lymphs (auto) 1.39, Nucleated RBC % 0, Anisocytosis 1+, Sodium 141, Potassium 4.3, Chloride 105, Carbon Dioxide 32.0, Anion Gap 4 L, BUN 54 H, Creatinine 1.37 H, Estim Creat Clear Calc 26.68, Est GFR (MDRD) Af Amer 47 L, Est GFR (MDRD) Non-Af 39 L, BUN/Creatinine Ratio 39.4 H, Glucose 155 H, Calcium 8.1 L, Troponin I High Sens 17, B-Natriuretic Peptide 43.1 10/03/23 06:30: POC Glucose 117 H Micro: Microbiology 10/03/23 03:27 Urine, Clean Catch Legionella Antigen - Final 10/03/23 03:27 Urine, Clean Catch Streptococcus pneumoniae Antigen (M - Final Radiography Diagnostic Testing: Radiology Impression Chest X-Ray 10/02/23 20:20 IMPRESSION: No definite acute or significant abnormality seen. Electronically Signed: Carlos Block MD at 20:58 EDT , Chest CTA 10/02/23 22:00 IMPRESSION: No demonstrated pulmonary embolism or arterial dissection. Left basilar atelectasis. Mild interstitial thickening/scarring. Small patchy areas of possible mild right pulmonary infiltrates. Electronically Signed: Gustavo Pleitez DO at 23:14 EDT , Physical Exam Const alert and no apparent distress Resp normal respiratory effort and no retractions Resp Narrative: coarse Breath sounds Cardio regular rate, regular rhythm, S1 normal heart sound and S2 normal heart sound GI normal to inspection, nondistended, normoactive bowel sounds, soft to palpation, non-tender and non-distended Neuro Sensorium / Orientation: awake and alert Assessment & Plan Assessment/Plan (1) Pneumonia: QUALIFIERS: Laterality: right Lung location: unspecified part of lung Pneumonia type: due to unspecified organism Qualified Code(s): J18.9 - Pneumonia, unspecified organism (2) Respiratory insufficiency: PLAN: Plan Acute hypoxic respiratory failure POA. Pulse ox 83% with RR of 28. Reviewing CTA, certainly abnormal, but pt is post COVID-19 (had in August) May be ATX, but also concerned this could be due to CHF. Weight up 2 kg. Doubt pneumonia given CTA findings and that she is afebrile, and w/o leukocytosis. Plan: DC abx, furosemide Acute HFpEF EF 70% from echo on 09/05/2023 DC PO furosemide, change to 40 IV BID. Continue carvedilol and losartan. Chronic conditions: COPD and no evidence of flare at this time - Continue as needed nebulizers. Patient quit smoking 2 years ago. OA; with spinal stenosis causing Right radicular pain and chronic debility - Stable. Return patient to TCU when medically appropriate. Essential hypertension - Continue home medications as previous plus give prn IV Hydralazine for systolic blood pressure > 160 mm Hg. Hyperlipidemia - Resume statin. Overweight; with BMI of 27.5 this admission DM-2; of unknown control - ADA diet. FSBS q. AC/HS plus SSI. Check HgbA1c. CAD; s/p NSTEMI - Continue baby aspirin, Plavix and statin as previous. History of bilateral carotid stenosis; s/p carotid angioplasty - Stable. History of TIA - Noted. Continue antiplatelets already ordered for #9. PVD; with history of claudication CKD; stage IIIb Chronic iron deficiency anemia - Stable with hemoglobin of 9.5 g/dL present on admission. Resume iron supplementation as previous. GERD - Continue PPI. DVT prophylaxis - Lovenox 40 mg subcu daily. Charges/Coding Visit Charges Inpatient E&M: 02442 Subs Hosp L2
[2023-10-03] MEDS: Insulin Lispro 100 UNIT/ML INSULN.PEN 7 UNIT SC ×3 (08:33→17:19)
[2023-10-03] MEDS: Carvedilol 12.5 MG Tablet PO ×2 (08:35→17:18)
[2023-10-03] MEDS: Cholecalciferol (VIT D3) 25 MCG TABLET (1,000 UNITS) PO (08:35)
[2023-10-03] MEDS: Pantoprazole Sodium 40 MG Tablet PO (08:35)
[2023-10-03] MEDS: DULoxetine Hcl 30 MG Capsule PO ×2 (08:35→21:18)
--- NOTE | 2023-10-03 10:35 | CASEMGMT ---
Addendum entered by Odalis Logan 10/03/23 10:59: Social Work SW spoke with Gretta in TCU. A new precert will be need for pt to return to TCU. Pt was doing well prior to hospital admission and pt may not be approved for return to TCU. However, precert will be attempted with pt's change in condition. Plan: Return to TCU, pending precert NERISSA Dawson Original Note: Social Work SW met with pt and introduced self and role of SW. Pt was admitted from the TCU. Pt states that she lives home alone and had been doing well with therapy in TCU and was making good progress. Pt states she feels she will need to return to TCU upon discharge to complete therapy program prior to returning home. Referral made to TCU to check on accepting pt back. A new precert will be needed. SW will await determination from TCU. Plan: Return to TCU, new precert will be needed NERISSA Dawson
[2023-10-03] MEDS: guaiFENesin/D-Methorphan TAB.SR.12H 2 TABLET PO ×2 (10:45→21:18)
[2023-10-03] MEDS: Polyethylene Glycol 3350 17 GM PACKET PO (10:45)
[2023-10-03] MEDS: Ensure Plus High Protein 120 ML LIQUID PO ×2 (10:45→11:45)
[2023-10-03] MEDS: Clopidogrel Bisulfate 75 MG Tablet PO (10:45)
[2023-10-03] MEDS: Multivitamins,Therapeutic Tablet 1 TABLET PO (10:46)
[2023-10-03] MEDS: Losartan Potassium 25 MG Tablet PO (10:47)
[2023-10-03] MEDS: Insulin Glargine-YFGN 100 UNIT/ML Pen 10 UNIT SC (10:47)
[2023-10-03] MEDS: Furosemide 40 MG/4 ML Vial IV ×2 (10:51→17:18)
[2023-10-03] MEDS: Insulin Lispro 100 UNIT/ML INSULN.PEN SC ×2 (11:44→21:25)
[2023-10-03] MEDS: Ferrous Sulfate 325 MG Tablet PO (11:45)
[2023-10-03 11:55] LABS: Bedside Glucose 179 mg/dL (74-106)
[2023-10-03] MEDS: 0.9% Saline Lock 10 ML Syringe IV (17:18)
[2023-10-03 17:21] LABS: Bedside Glucose 105 mg/dL (74-106)
[2023-10-03] MEDS: Acetaminophen 325 MG Tablet 650 MG PO (19:47)
[2023-10-03] MEDS: Atorvastatin Calcium 40 MG Tablet PO (21:18)
[2023-10-03] MEDS: Pramipexole Di-HCl 0.5 MG Tablet 1.5 MG PO (21:19)
[2023-10-03 22:24] LABS: Bedside Glucose 155 mg/dL (74-106)
[2023-10-04] VITALS (13 sets, daily range): BP systolic 103–131; BP diastolic 46–97; PULSE 90–108; RESP 18–28; TEMP 36.4–37; O2SAT 92–96
[2023-10-04 06:37] LABS: Absolute Lymphocyte Count 1.52 X10^3/uL (0.83-4.51); Absolute Neutrophil Count 4.9 X10^3/uL (2.0-7.7); Basophil# 0.05 X10^3/uL; Basophil% 0.6 % (0-1); Eosinophil# 0.33 X10^3/uL; Eosinophils% 4.2 % (0-5); Hematocrit 33.4 % (37-47); Hemoglobin 10.2 g/dL (12.0-15.0); Lymphocyte # 1.52 X10^3/ul (0.83-4.51); Lymphocyte % 19.2 % (19-41); Mean Corp Hgb Conc 30.5 g/dL (32-36); Mean Corpuscular Hgb 29.8 pg (27.0-32.0); Mean Corpuscular Volume 97.7 fL (81-99); Mean Platelet Vol. 10.4 fl (6.2-12.0); Monocyte# 0.85 X10^3/uL; Monocyte% 10.8 % (0-10); NRBC Flagged by Analyzer 0 % (0-5); Neutrophil # 4.92 X10^3/uL (2.7-7.7); Neutrophil % 62.3 % (47-70); Platelet Count 178 K/mm3 (150-450); RBC Distribution Width CV 18.1 % (11.6-14.6); RBC Distribution Width SD 64.5 fl (35.1-43.9); Red Blood Count 3.42 M/mm3 (4.2-5.4); White Blood Count 7.9 K/mm3 (4.4-11.0)
[2023-10-04 06:52] LABS: Mucous, Urine 0 SEEN /hpf (<or=2+)
[2023-10-04 06:56] LABS: Color, Urine Yellow (Yellow); Glucose, Dipstick Normal (Normal); Ketone-Dipstick Negative (Negative); Leukocyte Esterase-Dipstick 500 /ul (Negative); Nitrite-Dipstick Negative (Negative); Occult Blood-Urine 50 /ul (Negative); Protein-Dipstick 30 mg/dl (Negative); Urine Bilirubin Dipstick Negative (Negative); Urine Clarity Sl. Cloudy (Clear); Urine Urobilinogen Normal (Normal)
[2023-10-04 07:03] LABS: White Blood Cells 50-100 SEEN /hpf (0-5)
[2023-10-04 07:04] LABS: Bacteria 3+ /hpf (None Seen); Red Blood Cells-Urine 10-25 SEEN /hpf (0-5); Squamous Epithelial Cells - UA 10-25 SEEN /hpf (5-10)
[2023-10-04 07:07] LABS: Anion Gap 7 (5-15); BUN 40 mg/dL (7-18); BUN/Creat Ratio 29.4 RATIO (10-20); Chloride 105 mmol/L (98-107); Creatinine, Serum 1.36 mg/dL (0.55-1.02); EST Glomerular Filtration Rate 39 mL/min (>60); Est Glom Filt Rate - Afr Amer 47 mL/min (>60); Estimated Creatinine Clearance 26.73 ml/min; Glucose 108 mg/dL (74-106); Potassium 3.6 mmol/L (3.5-5.1); Sodium Level 141 mmol/L (136-145)
[2023-10-04] MEDS: Ipratropium/Albuterol Sulfate 3 ML AMPUL.NEB INHALATION ×3 (07:07→19:36)
[2023-10-04] MEDS: Budesonide Respules 0.5 MG/2 ML AMPUL.NEB. 0.25 MG INHALATION ×2 (07:07→19:37)
--- NOTE | 2023-10-04 07:18 | PCM.PN.HOSP ---
Reason for Visit Reason for Visit: Diagnoses Pneumonia, unspecified organism (10/03/23) Other abnormalities of breathing (10/03/23) Subjective Subjective Breathing well. Decreased LE edema. Objective Data Objective Data Vital Signs: Vital Signs Temp Pulse Resp BP Pulse Ox O2 Del Method O2 Flow Rate 37.0 C 90 20 H 116/59 L 96 Nasal Cannula 2 10/04/23 05:30 10/04/23 05:30 10/04/23 05:30 10/04/23 05:30 10/04/23 05:30 10/04/23 05:30 10/04/23 05:30 Oxygen Flow Rate (L/min) 2 Oxygen Delivery Method Nasal Cannula Weight: 67.404 kg Body Mass Index (BMI) 27.1 Intake & Output: Intake and Output for Last 24 Hours 10/02/23 10/03/23 10/04/23 23:59 23:59 23:59 Intake Total 2318.75 / 2518.75 300 / 300 Output Total 500 / 800 550 / 550 Balance 1818.75 / 1718.75 -250 / -250 Lab / Micro Data 10/04/23 06:17 10/04/23 06:17 Labs: Laboratory Results - last 24 hr 10/03/23 11:37: POC Glucose 179 H 10/03/23 17:04: POC Glucose 105 10/03/23 21:25: POC Glucose 155 H 10/04/23 03:30: Urine Color Yellow, Urine Clarity Sl. Cloudy, Urine pH 7.0, Ur Specific [place] 1.010, Urine Protein 30 H, Urine Glucose (UA) Normal, Urine Ketones Negative, Urine Occult Blood 50 H, Urine Nitrite Negative, Urine Bilirubin Negative, Urine Urobilinogen Normal, Ur Leukocyte Esterase 500 H, Urine RBC 10-25 SEEN, Urine WBC 50-100 SEEN, Ur Squamous Epith Cells 10-25 SEEN, Urine Bacteria 3+, Urine Mucus 0 SEEN 10/04/23 06:17: WBC 7.9, RBC 3.42 L, Hgb 10.2 L, Hct 33.4 L, MCV 97.7, MCH 29.8, MCHC 30.5 L, RDW Std Deviation 64.5 H, RDW Coeff of Ha 18.1 H, Plt Count 178, MPV 10.4, Immature Gran % (Auto) 2.900 H, Neut % (Auto) 62.3, Lymph % (Auto) 19.2, [place] % (Auto) 10.8 H, Eos % (Auto) 4.2, Baso % (Auto) 0.6, Absolute Neuts (auto) 4.9, Absolute Lymphs (auto) 1.52, Nucleated RBC % 0, Sodium 141, Potassium 3.6, Chloride 105, Carbon Dioxide 29.0, Anion Gap 7, BUN 40 H, Creatinine 1.36 H, Estim Creat Clear Calc 26.73, Est GFR (MDRD) Af Amer 47 L, Est GFR (MDRD) Non-Af 39 L, BUN/Creatinine Ratio 29.4 H, Glucose 108 H, Calcium 9.0 Micro: Microbiology 10/03/23 04:00 Mucosa - Nasopharyngeal Respiratory Panel (PCR) - Final 10/03/23 03:27 Urine, Clean Catch Legionella Antigen - Final 10/03/23 03:27 Urine, Clean Catch Streptococcus pneumoniae Antigen (M - Final Physical Exam Const alert HEENT head/scalp atraumatic and moist oral mucous membranes Resp normal respiratory effort and no retractions Cardio Cardio Narrative: tachy. regular. GI normal to inspection, nondistended, normoactive bowel sounds, soft to palpation, non-tender and non-distended Extremity normal to inspection and full ROM Neuro Sensorium / Orientation: awake Assessment & Plan Assessment/Plan (1) Pneumonia: QUALIFIERS: Laterality: right Lung location: unspecified part of lung Pneumonia type: due to unspecified organism Qualified Code(s): J18.9 - Pneumonia, unspecified organism (2) Respiratory insufficiency: PLAN: Plan Acute on chronic hypoxic respiratory failure POA. Pulse ox 83% with RR of 28. Reviewing CTA, certainly abnormal, but pt is post COVID-19 (had in August) May be ATX, but also concerned this could be due to CHF. Weight up 2 kg. Doubt pneumonia given CTA findings and that she is afebrile, and w/o leukocytosis. Plan: DC abx, furosemide Acute HFpEF EF 70% from echo on 09/05/2023 DC PO furosemide, change to 40 IV BID. Continue carvedilol and losartan. Chronic conditions: COPD and no evidence of flare at this time - Continue as needed nebulizers. Patient quit smoking 2 years ago. OA; with spinal stenosis causing Right radicular pain and chronic debility - Stable. Return patient to TCU when medically appropriate. Essential hypertension - Continue home medications as previous plus give prn IV Hydralazine for systolic blood pressure > 160 mm Hg. Hyperlipidemia - Resume statin. Overweight; with BMI of 27.5 this admission DM-2; of unknown control - ADA diet. FSBS q. AC/HS plus SSI. Check HgbA1c. CAD; s/p NSTEMI - Continue baby aspirin, Plavix and statin as previous. History of bilateral carotid stenosis; s/p carotid angioplasty - Stable. History of TIA - Noted. Continue antiplatelets already ordered for #9. PVD; with history of claudication CKD; stage IIIb Chronic iron deficiency anemia - Stable with hemoglobin of 9.5 g/dL present on admission. Resume iron supplementation as previous. GERD - Continue PPI. DVT prophylaxis - Lovenox 40 mg subcu daily. Charges/Coding Visit Charges Inpatient E&M: 60622 Subs Hosp L2
[2023-10-04] MEDS: Insulin Lispro 100 UNIT/ML INSULN.PEN SC (08:33)
[2023-10-04] MEDS: Insulin Lispro 100 UNIT/ML INSULN.PEN 7 UNIT SC ×2 (08:34→12:28)
[2023-10-04] MEDS: Pantoprazole Sodium 40 MG Tablet PO (08:42)
[2023-10-04] MEDS: Clopidogrel Bisulfate 75 MG Tablet PO (08:42)
[2023-10-04] MEDS: guaiFENesin/D-Methorphan TAB.SR.12H 2 TABLET PO ×2 (08:42→21:55)
[2023-10-04] MEDS: DULoxetine Hcl 30 MG Capsule PO ×2 (08:42→21:54)
[2023-10-04] MEDS: Aspirin E.C. 81 MG Tablet PO (08:42)
[2023-10-04] MEDS: Multivitamins,Therapeutic Tablet 1 TABLET PO (08:42)
[2023-10-04] MEDS: Cholecalciferol (VIT D3) 25 MCG TABLET (1,000 UNITS) PO (08:42)
[2023-10-04] MEDS: Furosemide 40 MG/4 ML Vial IV ×2 (08:44→17:45)
[2023-10-04] MEDS: Carvedilol 12.5 MG Tablet PO ×2 (08:50→17:45)
[2023-10-04] MEDS: 0.9% Saline Lock 10 ML Syringe IV ×2 (08:53→17:51)
[2023-10-04 09:33] LABS: Bedside Glucose 172 mg/dL (74-106)
[2023-10-04] MEDS: Insulin Glargine-YFGN 100 UNIT/ML Pen 10 UNIT SC (10:37)
--- NOTE | 2023-10-04 11:30 | EKG12_ITS ---
Test Reason : Blood Pressure : / mmHG Vent. Rate : 105 BPM Atrial Rate : 105 BPM P-R Int : 150 ms QRS Dur : 118 ms QT Int : 364 ms P-R-T Axes : 060 238 029 degrees QTc Int : 481 ms Sinus tachycardia Low voltage QRS Right bundle branch block Cannot rule out Anterior infarct (cited on or before 02-OCT-2023) Abnormal ECG Confirmed by Dudley Thompson ([id number]), newspaper or periodical editor CURTIS WETZEL ([id number]) on 10/07/2023 8:38:32 AM Referred By: BERNABE Confirmed By:Dudley Thompson
[2023-10-04 12:24] LABS: Bedside Glucose 118 mg/dL (74-106)
--- NOTE | 2023-10-04 12:58 | CASEMGMT ---
Social Work Per physician, precert can be started for pt to return to TCU. Gretta in TCU updated and precert started. NERISSA Dawson
[2023-10-04 17:30] LABS: Bedside Glucose 97 mg/dL (74-106)
[2023-10-04] MEDS: Pramipexole Di-HCl 0.5 MG Tablet 1.5 MG PO (21:54)
[2023-10-04] MEDS: Atorvastatin Calcium 40 MG Tablet PO (21:54)
[2023-10-04 22:15] LABS: Bedside Glucose 130 mg/dL (74-106)
[2023-10-05 02:50] VITALS: BP 121/49; PULSE 97; RESP 18; TEMP 36.7; O2SAT 94
[2023-10-05 06:53] LABS: Bedside Glucose 107 mg/dL (74-106)
[2023-10-05 06:59] VITALS: PULSE 88; RESP 26; O2SAT 95
[2023-10-05] MEDS: Budesonide Respules 0.5 MG/2 ML AMPUL.NEB. 0.25 MG INHALATION (06:59)
[2023-10-05] MEDS: Ipratropium/Albuterol Sulfate 3 ML AMPUL.NEB INHALATION (06:59)
--- NOTE | 2023-10-05 07:12 | PN.HOSP_ITS ---
Reason for Visit Reason for Visit: Diagnoses Pneumonia, unspecified organism (10/03/23) Other abnormalities of breathing (10/03/23) Subjective Subjective Feeling well. No events. Objective Data Objective Data Vital Signs: Vital Signs Temp Pulse Resp BP Pulse Ox O2 Del Method O2 Flow Rate 36.7 C 97 18 121/49 H 94 Nasal Cannula 2 10/05/23 02:50 10/05/23 02:50 10/05/23 02:50 10/05/23 02:50 10/05/23 02:50 10/05/23 03:00 10/05/23 03:00 Oxygen Flow Rate (L/min) 2 Oxygen Delivery Method Nasal Cannula Weight: 67.404 kg Body Mass Index (BMI) 27.1 Intake & Output: Intake and Output for Last 24 Hours 10/03/23 10/04/23 10/05/23 23:59 23:59 23:59 Intake Total 2318.75 / 2518.75 600 / 750 300 / 300 Output Total 500 / 800 550 / 550 Balance 1818.75 / 1718.75 50 / 200 300 / 300 Lab / Micro Data 10/04/23 06:17 10/05/23 06:42 Labs: Laboratory Results - last 24 hr 10/04/23 08:31: POC Glucose 172 H 10/04/23 12:06: POC Glucose 118 H 10/04/23 17:11: POC Glucose 97 10/04/23 21:52: POC Glucose 130 H 10/05/23 06:34: POC Glucose 107 H Micro: Microbiology 10/03/23 04:00 Mucosa - Nasopharyngeal Respiratory Panel (PCR) - Final 10/03/23 03:27 Urine, Clean Catch Legionella Antigen - Final 10/03/23 03:27 Urine, Clean Catch Streptococcus pneumoniae Antigen (M - Final Physical Exam Const alert and no apparent distress HEENT head/scalp atraumatic Resp normal respiratory effort, no retractions, no use of accessory muscles and clear to auscultation bilaterally Cardio regular rate, regular rhythm, S1 normal heart sound and S2 normal heart sound GI normal to inspection, nondistended, normoactive bowel sounds and soft to palp ation Extremity General Extremity: edema bilateral lower extremity Details: mild Neuro Sensorium / Orientation: awake and alert Assessment & Plan Assessment/Plan (1) Pneumonia: QUALIFIERS: Laterality: right Lung location: unspecified part of lung Pneumonia type: due to unspecified organism Qualified Code(s): J18.9 - Pneumonia, unspecified organism (2) Respiratory insufficiency: PLAN: Plan Acute on chronic hypoxic respiratory failure * POA. Pulse ox 83% with RR of 28. * Reviewing CTA, certainly abnormal, but pt is post COVID-19 (had in August) * May be ATX, but also concerned this could be due to CHF. Weight up 2 kg. Doubt pneumonia given CTA findings and that she is afebrile, and w/o leukocytosis. * Plan: DC abx, continue furosemide Acute HFpEF * EF 70% from echo on 09/05/2023 * DC PO furosemide, change to 40 IV BID. * Continue carvedilol and losartan. Chronic conditions: * COPD and no evidence of flare at this time - Continue as needed nebulizers. Patient quit smoking 2 years ago. * OA; with spinal stenosis causing Right radicular pain and chronic debility - Stable. Return patient to TCU when medically appropriate. * Essential hypertension - Continue home medications as previous plus give prn IV Hydralazine for systolic blood pressure > 160 mm Hg. * Hyperlipidemia - Resume statin. * Overweight; with BMI of 27.5 this admission * DM-2; of unknown control - ADA diet. FSBS q. AC/HS plus SSI. Check HgbA1c. * CAD; s/p NSTEMI - Continue baby aspirin, Plavix and statin as previous. * History of bilateral carotid stenosis; s/p carotid angioplasty - Stable. * History of TIA - Noted. Continue antiplatelets already ordered for #9. * PVD; with history of claudication * CKD; stage IIIb * Chronic iron deficiency anemia - Stable with hemoglobin of 9.5 g/dL present on admission. Resume iron supplementation as previous. * GERD - Continue PPI. DVT prophylaxis - Lovenox 40 mg subcu daily. Disposition: plan to return to TCU
--- NOTE | 2023-10-05 08:44 | CASEMGMT ---
Social Work Precert has been obtained for TCU. Physician updated and pt is ready for discharge today. SW met with pt and updated and pt is agreeable with dc plan. Pt states she will notify her family. DC orders to be faxed to TCU when completed. Disposition: TCU, skilled level of care. NERISSA Dawson
[2023-10-05 08:47] LABS: Anion Gap 8 (5-15); BUN 44 mg/dL (7-18); BUN/Creat Ratio 32.1 RATIO (10-20); Calcium,Total 8.7 mg/dL (8.5-10.1); Chloride 103 mmol/L (98-107); Creatinine, Serum 1.37 mg/dL (0.55-1.02); EST Glomerular Filtration Rate 39 mL/min (>60); Est Glom Filt Rate - Afr Amer 47 mL/min (>60); Estimated Creatinine Clearance 26.53 ml/min; Glucose 106 mg/dL (74-106); Potassium 3.4 mmol/L (3.5-5.1); Sodium Level 140 mmol/L (136-145)
[2023-10-05 08:50] VITALS: BP 107/51; PULSE 110; RESP 20; TEMP 36.7; O2SAT 93
[2023-10-05] MEDS: Carvedilol 12.5 MG Tablet PO (08:50)
[2023-10-05] MEDS: Aspirin E.C. 81 MG Tablet PO (08:50)
[2023-10-05] MEDS: Losartan Potassium 25 MG Tablet PO (08:51)
[2023-10-05] MEDS: Furosemide 40 MG/4 ML Vial IV (08:51)
[2023-10-05] MEDS: DULoxetine Hcl 30 MG Capsule PO (08:51)
[2023-10-05] MEDS: Multivitamins,Therapeutic Tablet 1 TABLET PO (08:51)
[2023-10-05] MEDS: guaiFENesin/D-Methorphan TAB.SR.12H 2 TABLET PO (08:52)
[2023-10-05] MEDS: Clopidogrel Bisulfate 75 MG Tablet PO (08:52)
[2023-10-05] MEDS: Cholecalciferol (VIT D3) 25 MCG TABLET (1,000 UNITS) PO (08:52)
[2023-10-05] MEDS: Pantoprazole Sodium 40 MG Tablet PO (08:52)
--- NOTE | 2023-10-05 08:57 | TREXTCAR_ITS ---
Diet Diet Order/Speech Therapy: 10/03/23 12:31 Diet: Cardiac: Calorie-Controlled Type of Dietary Supplement:: griselda Ensure Compact tid Is pt able to select menu?: Yes Fluid restriction:: 1500 mL How many daily calories?: 1600 calorie Therapies Extremity Affected:: Bilateral Lower Occupational Therapy: Eval and Treat Problem/Diagnosis (1) Pneumonia: Status: Acute Code(s): J18.9 - Pneumonia, unspecified organism (2) Respiratory insufficiency: Status: Acute Code(s): R06.89 - Other abnormalities of breathing Plan Acute on chronic hypoxic respiratory failure * POA. Pulse ox 83% with RR of 28. * Reviewing CTA, certainly abnormal, but pt is post COVID-19 (had in August) * May be ATX, but also concerned this could be due to CHF. Weight up 2 kg. Doubt pneumonia given CTA findings and that she is afebrile, and w/o leukocytosis. * Plan: DC abx, continue furosemide Acute HFpEF * EF 70% from echo on 09/05/2023 * DC PO furosemide, change to 40 IV BID. * Continue carvedilol and losartan. Chronic conditions: * COPD and no evidence of flare at this time - Continue as needed nebulizers. Patient quit smoking 2 years ago. * OA; with spinal stenosis causing Right radicular pain and chronic debility - Stable. Return patient to TCU when medically appropriate. * Essential hypertension - Continue home medications as previous plus give prn IV Hydralazine for systolic blood pressure > 160 mm Hg. * Hyperlipidemia - Resume statin. * Overweight; with BMI of 27.5 this admission * DM-2; of unknown control - ADA diet. FSBS q. AC/HS plus SSI. Check HgbA1c. * CAD; s/p NSTEMI - Continue baby aspirin, Plavix and statin as previous. * History of bilateral carotid stenosis; s/p carotid angioplasty - Stable. * History of TIA - Noted. Continue antiplatelets already ordered for #9. * PVD; with history of claudication * CKD; stage IIIb * Chronic iron deficiency anemia - Stable with hemoglobin of 9.5 g/dL present on admission. Resume iron supplementation as previous. * GERD - Continue PPI. DVT prophylaxis - Lovenox 40 mg subcu daily. Disposition: plan to return to TCU Allergies/Procedures Done in Hospital Allergies lisinopril Allergy (Verified 09/03/23 09:41) edema aspirin Adverse Reaction (Verified 09/03/23 09:41) Upset Stomach Type of Care/Length of Stay Estimated LOS: Convalescent Care Less Than 30 days Type of Care Needed: Skilled Rehab Potential: Good Prognosis: Good Additional Orders/Day of Discharge Day of Discharge: 10/05/23 Dietary and Speech Recommendations Dietitian Recommendations/Changes: Change diet to 1600 saúl Consistent CHO/ Cardiac w/ FR per MD orders Change 120 ml EPHP at medpass to 120 ml Ensure Compact tid w/ meals per pt request Discharge Plan Admission Admit Date/Time: 10/03/23 00:00 Primary Reason for Your Visit: CHF exacerbation Attending Provider: Herrera Bauman Primary Care Provider: Anu Mortensen Consulting Providers: Jorje Hood Discharge Orders/Prescriptions Prescriptions: Continued cholecalciferol (vitamin D3) 1,000 unit tablet 2,500 unit PO DAILY albuterol sulfate 2.5 mg /3 mL (0.083 %) solution for nebulization 2.5 mg inhalation Q4H PRN (Reason: shortness of breath or wheezing) ipratropium-albuterol 0.5 mg-3 mg(2.5 mg base)/3 mL solution for nebulization 3 ml inhalation Q6H PRN (Reason: shortness of breath) duloxetine 30 mg capsule,delayed release(DR/EC) 30 mg PO BID atorvastatin 40 MG tablet 40 mg PO QHS clopidogrel 75 MG tablet 75 mg PO DAILY multivitamin with folic acid 1 TABLET tablet 1 tab PO DAILY albuterol sulfate 90 mcg/actuation HFA aerosol inhaler 2 puff INHALATION BID PRN (Reason: shortness of breath or wheezing) Hold Instructions: Order Changed pramipexole 1.5 mg tablet 1.5 mg PO QHS diclofenac sodium 1 % gel 1 inch TOPICAL DAILY PRN (Reason: unknown) Hold Instructions: not on in tcu Patient Comments: pt using, but unaware of directions polyethylene glycol 3350 17 gram Powder In Packet 17 g PO DAILY Qty: 0 0RF sennosides-docusate sodium [Stool Softener-Stimulant Laxat] 8.6-50 mg Tablet 2 tab PO BID PRN (Reason: constipation) Qty: 0 0RF pantoprazole 40 mg Tablet,Delayed Release (Dr/Ec) 40 mg PO DAILY 30 Days Qty: 30 0RF ferrous sulfate [FeroSul] 325 mg (65 mg iron) Tablet 325 mg PO QODAY@LUNCH Qty: 0 0RF Mucinex DM 30-600 mg Tablet Extended Release 12 Hr 2 tab PO BID 7 Days Qty: 0 0RF aspirin 81 mg Tablet,Delayed Release (Dr/Ec) 81 mg PO BREAKFAST 30 Days Qty: 30 2RF Hold Instructions: no currently on in Tcu insulin lispro [Humalog KwikPen Insulin] 100 unit/mL Insulin Pen See Protocol subcut ACHS Qty: 0 0RF Protocol: 4. Sliding Scale Insulin High-Med Dosing Condition: 150-199 mg/dl = 2 units Condition: 200-259 mg/dl = 4 units Condition: 260-324 mg/dl = 6 units Condition: 325-374 mg/dl = 8 units Condition: 375-409 mg/dl = 10 units Condition: 410-449 mg/dl = 11 units Condition: Greater than 449 call physician Protocol Text: - Use for Total Daily Dose of Insulin 56-80 units - Patient who are insulin resistant or septic HIGH MEDIUM DOSING ALGORITHM insulin lispro [Humalog KwikPen Insulin] 100 unit/mL Insulin Pen 10 unit subcut TIDAC Qty: 0 0RF insulin glargine [Lantus Solostar U-100 Insulin] 100 unit/mL (3 mL) insulin pen 15 unit subcut DAILY Qty: 15 2RF Rx Instructions: Hold if glucose less than 130 mg/dl budesonide 0.5 mg/2 mL suspension for nebulization 0.25 mg inhalation BID 30 Days Qty: 0 0RF dexamethasone 2 mg tablet See Rx Instructions .ROUTE .COMPLEX Qty: 12 0RF Rx Instructions: 2 mg orally twice daily for 3 days and then 2 mg once daily for 3 days, then 1 mg for 6 days and then stop losartan 50 mg tablet 25 mg PO DAILY Qty: 90 3RF Rx Instructions: Hold for SBP less than 130 mmHg furosemide 40 mg tablet 40 mg PO DAILY Qty: 90 3RF Hold Instructions: Hold for 2 days. carvedilol 12.5 mg tablet 12.5 mg PO BID Qty: 180 4RF Rx Instructions: must administer with a meal/food Referrals / Follow Up: Anu Mortensen MD [Primary Care Provider] - Disposition Disposition (needs filled in before D/C Order can be placed): Detention Facility (1) Pneumonia Qualifiers: Pneumonia type: due to unspecified organism Laterality: right Lung location: unspecified part of lung Qualified Code(s): J18.9 - Pneumonia, unspecified organism
--- NOTE | 2023-10-05 09:00 | DS.PCM_ITS ---
Providers Date of Admission: 10/03/23 Primary Care Physician: Dr. Anu Mortensen MD Reason For Visit: NOSOCOMIAL PNEYMONIA WITH [id number] HYPOXIC Diagnosis Discharge Diagnosis (1) Pneumonia: Status: Acute Code(s): J18.9 - Pneumonia, unspecified organism Qualifiers: Pneumonia type: due to unspecified organism Laterality: right Lung location: unspecified part of lung Qualified Code(s): J18.9 - Pneumonia, unspecified organism (2) Respiratory insufficiency: Status: Acute Code(s): R06.89 - Other abnormalities of breathing Plan Acute on chronic hypoxic respiratory failure * POA. Pulse ox 83% with RR of 28. * Reviewing CTA, certainly abnormal, but pt is post COVID-19 (had in August) * May be ATX, but also concerned this could be due to CHF. Weight up 2 kg. Doubt pneumonia given CTA findings and that she is afebrile, and w/o leukocytosis. * Plan: DC abx, continue furosemide Acute HFpEF * EF 70% from echo on 09/05/2023 * DC PO furosemide, change to 40 IV BID. * Continue carvedilol and losartan. Chronic conditions: * COPD and no evidence of flare at this time - Continue as needed nebulizers. Patient quit smoking 2 years ago. * OA; with spinal stenosis causing Right radicular pain and chronic debility - Stable. Return patient to TCU when medically appropriate. * Essential hypertension - Continue home medications as previous plus give prn IV Hydralazine for systolic blood pressure > 160 mm Hg. * Hyperlipidemia - Resume statin. * Overweight; with BMI of 27.5 this admission * DM-2; of unknown control - ADA diet. FSBS q. AC/HS plus SSI. Check HgbA1c. * CAD; s/p NSTEMI - Continue baby aspirin, Plavix and statin as previous. * History of bilateral carotid stenosis; s/p carotid angioplasty - Stable. * History of TIA - Noted. Continue antiplatelets already ordered for #9. * PVD; with history of claudication * CKD; stage IIIb * Chronic iron deficiency anemia - Stable with hemoglobin of 9.5 g/dL present on admission. Resume iron supplementation as previous. * GERD - Continue PPI. DVT prophylaxis - Lovenox 40 mg subcu daily. Disposition: plan to return to TCU Medications at Discharge Home Medications atorvastatin 40 mg tablet 40 mg PO QHS cholesterol 02/22/16 clopidogrel 75 mg tablet 75 mg PO DAILY BLOOD THINNER 02/22/16 multivitamin with folic acid 400 mcg tablet 1 tab PO DAILY supplement 02/22/16 albuterol sulfate 90 mcg/actuation aerosol inhaler 2 puff inhalation BID PRN shortness of breath or wheezing 03/16/18 cholecalciferol (vitamin D3) 25 mcg (1,000 unit) tablet 2,500 unit PO DAILY SUPPLEMENT 10/09/18 furosemide 40 mg tablet 40 mg PO DAILY FLUID RETENTION #90 tabs 01/27/22 albuterol sulfate 2.5 mg/3 mL (0.083 %) solution for nebulization 2.5 mg inhalation Q4H PRN shortness of breath or wheezing 05/28/22 ipratropium 0.5 mg-albuterol 3 mg (2.5 mg base)/3 mL nebulization soln 3 ml inhalation Q6H PRN shortness of breath 05/28/22 carvedilol 12.5 mg tablet 12.5 mg PO BID CHOLESTEROL #180 tabs 04/27/23 duloxetine 30 mg capsule,delayed release 30 mg PO BID pain 08/17/23 pramipexole 1.5 mg tablet 1.5 mg PO QHS restless leg syndrome 08/18/23 diclofenac sodium 1 % topical gel 1 inch topical DAILY PRN unknown 09/03/23 aspirin 81 mg tablet,delayed release 81 mg PO BREAKFAST blood 30 days #30 tabs 09/09/23 budesonide 0.5 mg/2 mL suspension for nebulization 0.25 mg inhalation BID breathing 30 days #0 mL 09/09/23 dexamethasone 2 mg tablet See Rx Instructions .Route .COMPLEX breathing #12 tabs 09/09/23 dextromethorphan-guaifenesin 30 mg-600 mg tablet extended [id number] hr (Mucinex DM) 2 tab PO BID cough 7 days #0 tabs 09/09/23 ferrous sulfate 325 mg (65 mg iron) tablet (FeroSul) 325 mg PO QODAY@LUNCH health maintenance #0 tabs 09/09/23 insulin glargine 100 unit/mL (3 mL) subcutaneous pen (Lantus Solostar U-100 Insulin) 15 unit (0.15 mL) subcut DAILY diabetes #15 mL 09/09/23 insulin lispro 100 unit/mL subcutaneous pen (Humalog KwikPen (U-100) Insulin) 10 unit (0.1 mL) subcut TIDAC diabetes #0 mL 09/09/23 insulin lispro 100 unit/mL subcutaneous pen (Humalog KwikPen (U-100) Insulin) See Protocol subcut ACHS diabetes #0 mL 09/09/23 pantoprazole 40 mg tablet,delayed release 40 mg PO DAILY GERD 30 days #30 tabs 09/09/23 polyethylene glycol 3350 17 gram oral powder packet 17 g PO DAILY constipation #0 ea 09/09/23 sennosides 8.6 mg-docusate sodium 50 mg tablet (Stool Softener-Stimulant Laxative) 2 tab PO BID PRN constipation #0 tabs 09/09/23 losartan 50 mg tablet 25 mg (1/2 x 50 mg) PO DAILY BLOOD PRESSURE #90 tabs 09/12/23 Hospital Course Operations None Procedures None Summary of Care Provided Minutes Spent on Discharge: 32 Hospital Course: Patient presents with shortness of breath. Initially felt to be due to pneumonia but on further evaluation. Being more related with CHF exacerbation. Patient was put on antibiotics without discontinued patient was put on IV furosemide. Patient did improve to her baseline 2 L nasal cannula. Her course was otherwise uncomplicated. Patient be discharged back to the transitional care unit. Weight / BMI Weight Weight: 67.404 kg Body Mass Index (BMI) 27.1 ABG / Lab / Microbiology Data 10/04/23 06:17 10/05/23 06:42 Laboratory: Laboratory Results - last 24 hr 10/04/23 08:31: POC Glucose 172 H 10/04/23 12:06: POC Glucose 118 H 10/04/23 17:11: POC Glucose 97 10/04/23 21:52: POC Glucose 130 H 10/05/23 06:34: POC Glucose 107 H 10/05/23 06:42: Sodium 140, Potassium 3.4 L, Chloride 103, Carbon Dioxide 29.0, Anion Gap 8, BUN 44 H, Creatinine 1.37 H, Estim Creat Clear Calc 26.53, Est GFR (MDRD) Af Amer 47 L, Est GFR (MDRD) Non-Af 39 L, BUN/Creatinine Ratio 32.1 H, Glucose 106, Calcium 8.7 Microbiology: Microbiology 10/03/23 04:00 Mucosa - Nasopharyngeal Respiratory Panel (PCR) - Final 10/03/23 03:27 Urine, Clean Catch Legionella Antigen - Final 10/03/23 03:27 Urine, Clean Catch Streptococcus pneumoniae Antigen (M - Fin al D/C Instructions Discharge Diet: 8 Cup Fluid Restriction and 2000 mg Sodium Diet Meaningful Use Info Meaningful Use Diagnoses (Choose all that apply): CHF CHF DIANA/ARB ordered at discharge?: Yes Documented LVEF (%): 70 Discharge Plan Admission Admit Date/Time: 10/03/23 00:00 Primary Reason for Your Visit: CHF exacerbation Attending Provider: Herrera Bauman Primary Care Provider: Anu Mortensen Consulting Providers: Jorje Hood Instructions Patient Instructions: Heart Failure Flare Up Signs, Heart Failure: Tracking Your Weight, Heart Failure Make Changes Diet, Heart Failure Assessment, Heart Failure Care, Heart Failure and Physical Activity, Heart Failure Discharge Orders/Prescriptions Prescriptions: Continued cholecalciferol (vitamin D3) 1,000 unit tablet 2,500 unit PO DAILY albuterol sulfate 2.5 mg /3 mL (0.083 %) solution for nebulization 2.5 mg inhalation Q4H PRN (Reason: shortness of breath or wheezing) ipratropium-albuterol 0.5 mg-3 mg(2.5 mg base)/3 mL solution for nebulization 3 ml inhalation Q6H PRN (Reason: shortness of breath) duloxetine 30 mg capsule,delayed release(DR/EC) 30 mg PO BID atorvastatin 40 MG tablet 40 mg PO QHS clopidogrel 75 MG tablet 75 mg PO DAILY multivitamin with folic acid 1 TABLET tablet 1 tab PO DAILY albuterol sulfate 90 mcg/actuation HFA aerosol inhaler 2 puff INHALATION BID PRN (Reason: shortness of breath or wheezing) Hold Instructions: Order Changed pramipexole 1.5 mg tablet 1.5 mg PO QHS diclofenac sodium 1 % gel 1 inch TOPICAL DAILY PRN (Reason: unknown) Hold Instructions: not on in tcu Patient Comments: pt using, but unaware of directions polyethylene glycol 3350 17 gram Powder In Packet 17 g PO DAILY Qty: 0 0RF sennosides-docusate sodium [Stool Softener-Stimulant Laxat] 8.6-50 mg Tablet 2 tab PO BID PRN (Reason: constipation) Qty: 0 0RF pantoprazole 40 mg Tablet,Delayed Release (Dr/Ec) 40 mg PO DAILY 30 Days Qty: 30 0RF ferrous sulfate [FeroSul] 325 mg (65 mg iron) Tablet 325 mg PO QODAY@LUNCH Qty: 0 0RF Mucinex DM 30-600 mg Tablet Extended Release 12 Hr 2 tab PO BID 7 Days Qty: 0 0RF aspirin 81 mg Tablet,Delayed Release (Dr/Ec) 81 mg PO BREAKFAST 30 Days Qty: 30 2RF Hold Instructions: no currently on in Tcu insulin lispro [Humalog KwikPen Insulin] 100 unit/mL Insulin Pen See Protocol subcut ACHS Qty: 0 0RF Protocol: 4. Sliding Scale Insulin High-Med Dosing Condition: 150-199 mg/dl = 2 units Condition: 200-259 mg/dl = 4 units Condition: 260-324 mg/dl = 6 units Condition: 325-374 mg/dl = 8 units Condition: 375-409 mg/dl = 10 units Condition: 410-449 mg/dl = 11 units Condition: Greater than 449 call physician Protocol Text: - Use for Total Daily Dose of Insulin 56-80 units - Patient who are insulin resistant or septic HIGH MEDIUM DOSING ALGORITHM insulin lispro [Humalog KwikPen Insulin] 100 unit/mL Insulin Pen 10 unit subcut TIDAC Qty: 0 0RF insulin glargine [Lantus Solostar U-100 Insulin] 100 unit/mL (3 mL) insulin pen 15 unit subcut DAILY Qty: 15 2RF Rx Instructions: Hold if glucose less than 130 mg/dl budesonide 0.5 mg/2 mL suspension for nebulization 0.25 mg inhalation BID 30 Days Qty: 0 0RF dexamethasone 2 mg tablet See Rx Instructions .ROUTE .COMPLEX Qty: 12 0RF Rx Instructions: 2 mg orally twice daily for 3 days and then 2 mg once daily for 3 days, then 1 mg for 6 days and then stop losartan 50 mg tablet 25 mg PO DAILY Qty: 90 3RF Rx Instructions: Hold for SBP less than 130 mmHg furosemide 40 mg tablet 40 mg PO DAILY Qty: 90 3RF Hold Instructions: Hold for 2 days. carvedilol 12.5 mg tablet 12.5 mg PO BID Qty: 180 4RF Rx Instructions: must administer with a meal/food Referrals / Follow Up: Anu Mortensen MD [Primary Care Provider] - Within 2 Weeks Disposition Disposition (needs filled in before D/C Order can be placed): [facility] Charges/Coding Visit Charges Inpatient E&M: 12952 Disch Hosp >30min
== END 2023-10-05 11:03 | disposition skilled nursing facility (03) | DRG 291 ==
LOC: ED 23:37 → MS3 10-03 00:55
PROVIDERS: Family Medicine; Admitting Provider Internal Medicine; Emergency Provider Student in an Organized Health Care Education/Training Program; PCP Internal Medicine
DX: I13.0 Hypertensive heart and chronic kidney disease with heart failure and stage 1 through stage 4 chronic kidney disease, or unspecified chronic kidney disease (principal); I50.33 Acute on chronic diastolic (congestive) heart failure; J96.21 Acute and chronic respiratory failure with hypoxia; E11.22 Type 2 diabetes mellitus with diabetic chronic kidney disease; E11.51 Type 2 diabetes mellitus with diabetic peripheral angiopathy without gangrene; D50.9 Iron deficiency anemia, unspecified; E66.3 Overweight; J44.9 Chronic obstructive pulmonary disease, unspecified; N18.32 Chronic kidney disease, stage 3b; Z79.4 Long term (current) use of insulin; G25.81 Restless legs syndrome; F32.A Depression, unspecified; I25.2 Old myocardial infarction; I25.10 Atherosclerotic heart disease of native coronary artery without angina pectoris; M19.90 Unspecified osteoarthritis, unspecified site; E78.5 Hyperlipidemia, unspecified; M48.00 Spinal stenosis, site unspecified; K21.9 Gastro-esophageal reflux disease without esophagitis; R53.81 Other malaise; Z68.27 Body mass index [BMI] 27.0-27.9, adult; Z99.81 Dependence on supplemental oxygen; Z79.51 Long term (current) use of inhaled steroids; Z79.82 Long term (current) use of aspirin; Z79.02 Long term (current) use of antithrombotics/antiplatelets; Z79.899 Other long term (current) drug therapy; Z86.16 Personal history of COVID-19; Z87.891 Personal history of nicotine dependence; Z86.73 Personal history of transient ischemic attack (TIA), and cerebral infarction without residual deficits
CPT/HCPCS: 36415; 71045; 71275; 80048; 81001; 82962; 83880; 84484; 85025; 87086; 87088; 87449; 87633; 93005; 94640; 94762; 97162; 97166; 97530; 97535; 97802; 99285; J7030; J7040; Q9967; A4216; J1940

== ENCOUNTER 2023-10-05 11:04 | Inpatient (IN) | payer MEDICARE, SELFPAY ==
[2023-10-05 11:11] VITALS: BP 113/55; PULSE 89; RESP 18; TEMP 36.7; O2SAT 94; BMI 26.5
[2023-10-05 11:51] LABS: Bedside Glucose 100 mg/dL (74-106)
--- NOTE | 2023-10-05 13:11 | NURSING ---
Sports Intern Note; Activity Asset: Mikayla Buchanan is independent in her choice of daily activities. While on TCU she will watch tv and read love stories. He Daughter will visit and bring her items she may need as well. She has a smartphone she will use to call or text on. She welcomes visit from the rice farmer and therapy dog when available. Staff will remind her of weekly activities and respect her right to say no. [ End ]
[2023-10-05] MEDS: Ferrous Sulfate 325 MG Tablet PO (13:24)
[2023-10-05 16:00] VITALS: BP 116/58; PULSE 99; RESP 16; TEMP 36.8; O2SAT 95
[2023-10-05 17:04] LABS: Bedside Glucose 113 mg/dL (74-106)
[2023-10-05] MEDS: Carvedilol 12.5 MG Tablet PO (18:05)
[2023-10-05] MEDS: Insulin Lispro 100 UNIT/ML INSULN.PEN SC (18:48)
[2023-10-05 18:58] VITALS: PULSE 100; RESP 28; O2SAT 94
[2023-10-05] MEDS: Ipratropium/Albuterol Sulfate 3 ML AMPUL.NEB INHALATION (18:58)
[2023-10-05] MEDS: Budesonide Respules 0.5 MG/2 ML AMPUL.NEB. 0.25 MG INHALATION (19:10)
--- NOTE | 2023-10-05 21:14 | HP.PCM_ITS ---
HPI - General General Date of Admission: 10/05/23 Date of Service: 10/05/23 Chief Complaint: Here for rehabilitation. HPI Narrative DICK ARTIS, is a 88 Female who presents with followin10/02/2023 [facility] ED TCU resident with SOB. Rehab after NSTEMI, COPD exacerbation, influenza A. Worsening SOB, increasing oxygen requirement. Hemoglobin 9.5, BNP 43, Troponin 17, EKG okay. CTA chest shows pneumonia, Negative pulmonary embolism. Vancomycin, Zosyn IV given. 10/02/2023 Admit to [facility]. Vancomycin, Zosyn, Urinary antigens, sputum culture for pneumonia. Wean oxygen to baseline oxygen. 10/03/2023 SOB. Pulsox 83%, RR 28. Stop antibiotics, start Furosemide for CHF. Furosemide 40mg IV BID for CHF. 10/04/2023 Breathing well, right lower extremity edema improved. Continue Carvedilol, Losartan, Furosemide 40mg IV BID for HFpEF. 10/05/2023 Feeling well. Await TCU. 10/05/2023 Admit to TCU with debility, here for rehabilitation, strengthening, prior to discharge home alone. [facility] Medical History (Updated 10/05/23 @ 21:[address] Richy Pierson MD) Acute hypoxic respiratory failure Bilateral carotid artery stenosis Chronic kidney disease Claudication Diverticulosis Dyslipidemia Essential hypertension History of COPD History of TIA (transient ischemic attack) Leg edema Limb weakness Muscle spasm of left shoulder area Neck and back pain PAD (peripheral artery disease) Renal cyst RLS (restless legs syndrome) Shortness of breath Shoulder pain TIA (transient ischemic attack) Vertigo Home Medications atorvastatin 40 mg tablet 40 mg PO QHS cholesterol 02/22/16 [History Last Taken 10/04/23 21:55] clopidogrel 75 mg tablet 75 mg PO DAILY BLOOD THINNER 02/22/16 [History Last Taken 10/05/23 08:50] multivitamin with folic acid 400 mcg tablet 1 tab PO DAILY supplement 02/22/16 [History Last Taken 10/05/23 08:50] albuterol sulfate 90 mcg/actuation aerosol inhaler 2 puff inhalation BID PRN shortness of breath or wheezing 03/16/18 [History Last Taken 09/02/23] cholecalciferol (vitamin D3) 25 mcg (1,000 unit) tablet 2,500 unit PO DAILY SUPPLEMENT 10/09/18 [History Last Taken 10/05/23 08:50] furosemide 40 mg tablet 40 mg PO DAILY FLUID RETENTION #90 tabs 01/27/22 [Rx Last Taken 09/15/23] albuterol sulfate 2.5 mg/3 mL (0.083 %) solution for nebulization 2.5 mg inhalation Q4H PRN shortness of breath or wheezing 05/28/22 [History Last Taken 10/03/23 04:30] ipratropium 0.5 mg-albuterol 3 mg (2.5 mg base)/3 mL nebulization soln 3 ml inhalation Q6H PRN shortness of breath 05/28/22 [History Last Taken 10/05/23 07:00] carvedilol 12.5 mg tablet 12.5 mg PO BID CHOLESTEROL #180 tabs 04/27/23 [Rx Last Taken 10/05/23 08:50] duloxetine 30 mg capsule,delayed release 30 mg PO BID pain 08/17/23 [History Last Taken 10/05/23 08:50] pramipexole 1.5 mg tablet 1.5 mg PO QHS restless leg syndrome 08/18/23 [History Last Taken 10/04/23 21:55] diclofenac sodium 1 % topical gel 1 inch topical DAILY PRN unknown 09/03/23 [History Last Taken Unknown] aspirin 81 mg tablet,delayed release 81 mg PO BREAKFAST blood 30 days #30 tabs 09/09/23 [Rx Last Taken 10/05/23 08:50] budesonide 0.5 mg/2 mL suspension for nebulization 0.25 mg inhalation BID breathing 30 days #0 mL 09/09/23 [Rx Last Taken 10/05/23 07:00] dexamethasone 2 mg tablet See Rx Instructions .Route .COMPLEX breathing #12 tabs 09/09/23 [Rx Last Taken 09/15/23] dextromethorphan-guaifenesin 30 mg-600 mg tablet extended [id number] hr (Mucinex DM) 2 tab PO BID cough 7 days #0 tabs 09/09/23 [Rx Last Taken 10/05/23 08:55] ferrous sulfate 325 mg (65 mg iron) tablet (FeroSul) 325 mg PO QODAY@LUNCH health maintenance #0 tabs 09/09/23 [Rx Last Taken 10/03/23 11:45] insulin glargine 100 unit/mL (3 mL) subcutaneous pen (Lantus Solostar U-100 Insulin) 15 unit (0.15 mL) subcut DAILY diabetes #15 mL 09/09/23 [Rx Last Taken 10/04/23 10:35] insulin lispro 100 unit/mL subcutaneous pen (Humalog KwikPen (U-100) Insulin) 10 unit (0.1 mL) subcut TIDAC diabetes #0 mL 09/09/23 [Rx Last Taken 10/04/23 12:25] insulin lispro 100 unit/mL subcutaneous pen (Humalog KwikPen (U-100) Insulin) See Protocol subcut ACHS diabetes #0 mL 09/09/23 [Rx Last Taken 10/04/23 08:30] pantoprazole 40 mg tablet,delayed release 40 mg PO DAILY GERD 30 days #30 tabs 09/09/23 [Rx Last Taken 10/05/23 08:50] polyethylene glycol 3350 17 gram oral powder packet 17 g PO DAILY constipation #0 ea 09/09/23 [Rx Last Taken 10/03/23 10:45] sennosides 8.6 mg-docusate sodium 50 mg tablet (Stool Softener-Stimulant Laxative) 2 tab PO BID PRN constipation #0 tabs 09/09/23 [Rx Last Taken 09/11/23 10:35] losartan 50 mg tablet 25 mg (1/2 x 50 mg) PO DAILY BLOOD PRESSURE #90 tabs 09/12/23 [Rx Last Taken 10/05/23 08:50] Allergy/AdvReac Type Severity Reaction Status Date / Time lisinopril Allergy edema Verified 09/03/23 09:41 aspirin AdvReac Upset Verified 09/03/23 09:41 Stomach Family History Mother Heart disease Surgical History History of basal cell carcinoma excision History of carotid angioplasty History of kidney stones History of thyroid surgery History of total hysterectomy Social History household members: none housing: house Smoking Status: Former smoker how long ago did patient quit smokin years ago alcohol intake: current alcohol intake frequency: holidays/special occasions only details: rare substance use type: does not use caffeine: Yes Type: coffee Number of servings: 1 ROS Constitutional Constitutional: Denies chills, fever(s) or weight gain ENT HEENT: Denies headache(s), nasal congestion or nasal discharge Cardiovascular Cardiovascular: Denies chest pain or palpitations Respiratory/Chest Respiratory/Chest: Reports shortness of breath at rest; Denies cough, excessive phlegm production or shortness of breath with exertion Gastrointestinal Gastrointestinal: Denies abdominal pain, nausea or vomiting Genitourinary Genitourinary: Denies dysuria Musculoskeletal Musculoskeletal: Denies joint pain or joint swelling Integumentary Integumentary: Denies rash or wounds Neurologic Neurologic: Denies focal weakness, numbness or tingling Psychiatric Psychiatric: Denies anxiety, auditory hallucinations, depression, homicidal ideation or suicidal ideation Vital Signs Vital Signs Vital Signs: 10/05/23 11:11 10/05/23 11:11 10/05/23 16:00 Temperature 98.1 F 98.3 F Temperature Source Temporal Temporal Pulse Rate 89 99 Pulse Rhythm Regular Respiratory Rate 18 16 Respiratory Effort Normal Non-Labored Respiratory Depth Normal Respiratory Pattern Normal Blood Pressure 113/55 L 116/58 L Blood Pressure Mean 74 77 Blood Pressure Source Monitor Monitor Blood Pressure Position Semi-Fowlers Semi-Fowlers Blood Pressure Location Right Arm Left Arm Pulse Ox 94 95 Oxygen Delivery Method Nasal Cannula Nasal Cannula Nasal Cannula Oxygen Flow Rate (L/min) 2 2 2 Weight Weight: 65.856 kg Body Mass Index (BMI) 26.5 Physical Exam Const alert General Appearance: cooperative HEENT normocephalic Eyes PERRL and EOMs intact bilaterally Neck supple, no JVD and no carotid bruits Resp normal respiratory effort, normal air movement and clear to auscultation bilaterally Auscultation: crackles left base and wheezes Cardio regular rate and regular rhythm GI normal to inspection, nondistended, normoactive bowel sounds, non-tender and non-distended Extremity normal capillary refill General Extremity: Negative for edema Skin no rashes or lesions noted General Skin Exam: no breakdown Psych affect normal Appearance: appropriate Results Lab / Micro Data Labs: Laboratory Results - last 24 hr 10/05/23 11:28: POC Glucose 100 10/05/23 16:40: POC Glucose 113 H Assessment & Plan Assessment/Plan (1) Debility: (2) Right lumbar radiculopathy: (3) Acute hypoxic respiratory failure: (4) Acute on chronic heart failure with preserved ejection fraction (HFpEF): (5) Non-STEMI (non-ST elevated myocardial infarction): (6) COPD (chronic obstructive pulmonary disease): (7) Hyperlipidemia: (8) TIA (transient ischemic attack): (9) Depression: (10) Iron deficiency anemia: (11) GERD (gastroesophageal reflux disease): (12) RLS (restless legs syndrome): (13) Type 2 diabetes mellitus with hyperglycemia: PLAN: Plan 88 year old female with below past medical history hospitalized for acute respiratory failiure with hypoxia 2/2 acute on chronic HFpEF, pneumonia ruled out, admitted to TCU with debility, here for rehabilitation, strengthening, prior to discharger home alone. * Debility - PT/OT. * Pain - Tylenol 1000mg q6 prn pain (1-10), Arthritis pain compound 2 clicks topical bid. * Bowel - Miralax 17gm daily, senna/colace 2 tablets bid prn. * Adult immunization - Administer pneumonia vaccine, covid vaccine, flu vaccine as appropriate. * DVT prophylaxis - Hold, on dual antiplatelet therapy. * COPD - Budesonide 0.25mg inhaled bid, Duoneb 3ml [id number], Albuterol 2.5mg neb q4h prn. * Coronary artery disease - Carvedilol 12.5mg bid, Losartan 25mg daily, Plavix 75mg daily, Aspirin 81mg daily. * Hyperlipidemia - Atorvastatin 4mg qhs. * HFpEF - Carvedilol 12.5mg bid, Losartan 25mg daily, Furosemide 40mg daily. * Vitamin D deficiency - D3 25mcg daily. * Tinea pedis (left) Lotrisone cream topical bid. 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 * Iron deficiency anemia - Ferrex 150mg daily, Vitamin C 500mg daily. * Nutrition - Glucerna Shake 120ml tidcm. * Cough - Robitussin DM 2 tablets bid. * Diabetes Mellitus II - Glargine 15 units daily, Lispro 5 units tidac. * Nutrition - MVI daily. * Esophagitis/Duodenitis - Pantoprazole 40mg bid. * Restless leg syndrome - Mirapex 1.5mg qhs.
[2023-10-05 21:36] LABS: Bedside Glucose 91 mg/dL (74-106)
[2023-10-05] MEDS: Arthritis Pain Compound 60 CLICK TUBE TOPICAL (21:57)
[2023-10-05] MEDS: 0.9% Saline Lock 10 ML Syringe IV (21:57)
[2023-10-05] MEDS: Atorvastatin Calcium 40 MG Tablet PO (21:58)
[2023-10-05] MEDS: DULoxetine Hcl 30 MG Capsule PO (21:58)
[2023-10-05] MEDS: Pramipexole Di-HCl 0.5 MG Tablet 1.5 MG PO (21:59)
[2023-10-05] MEDS: guaiFENesin/D-Methorphan TAB.SR.12H 2 TABLET PO (22:00)
[2023-10-05] MEDS: Clotrimazole/Betamethasone 1 Tube 1 APPLIC TOPICAL (22:00)
[2023-10-05] MEDS: Pantoprazole Sodium 40 MG Tablet PO (22:06)
[2023-10-06 04:52] VITALS: BMI 27.0
[2023-10-06 05:57] LABS: Absolute Lymphocyte Count 1.39 X10^3/uL (0.83-4.51); Absolute Neutrophil Count 3.9 X10^3/uL (2.0-7.7); Basophil# 0.05 X10^3/uL; Basophil% 0.7 % (0-1); Eosinophil# 0.23 X10^3/uL; Eosinophils% 3.4 % (0-5); Hematocrit 29.3 % (37-47); Lymphocyte # 1.39 X10^3/ul (0.83-4.51); Lymphocyte % 20.7 % (19-41); Mean Corp Hgb Conc 30.7 g/dL (32-36); Mean Corpuscular Hgb 29.7 pg (27.0-32.0); Mean Corpuscular Volume 96.7 fL (81-99); Mean Platelet Vol. 10.4 fl (6.2-12.0); Monocyte# 0.93 X10^3/uL; Monocyte% 13.8 % (0-10); NRBC Flagged by Analyzer 0 % (0-5); Neutrophil # 3.94 X10^3/uL (2.7-7.7); Neutrophil % 58.7 % (47-70); Platelet Count 154 K/mm3 (150-450); RBC Distribution Width CV 17.9 % (11.6-14.6); RBC Distribution Width SD 62.4 fl (35.1-43.9); Red Blood Count 3.03 M/mm3 (4.2-5.4); White Blood Count 6.7 K/mm3 (4.4-11.0)
[2023-10-06 06:20] LABS: Anion Gap 7 (5-15); BUN 50 mg/dL (7-18); BUN/Creat Ratio 36.5 RATIO (10-20); Calcium,Total 8.3 mg/dL (8.5-10.1); Chloride 102 mmol/L (98-107); Creatinine, Serum 1.37 mg/dL (0.55-1.02); EST Glomerular Filtration Rate 39 mL/min (>60); Est Glom Filt Rate - Afr Amer 47 mL/min (>60); Glucose 111 mg/dL (74-106); Potassium 3.4 mmol/L (3.5-5.1); Sodium Level 140 mmol/L (136-145)
[2023-10-06 06:44] LABS: Bedside Glucose 111 mg/dL (74-106)
[2023-10-06 07:30] VITALS: PULSE 99; RESP 26; O2SAT 99
[2023-10-06] MEDS: Ipratropium/Albuterol Sulfate 3 ML AMPUL.NEB INHALATION ×3 (07:30→19:43)
[2023-10-06] MEDS: Budesonide Respules 0.5 MG/2 ML AMPUL.NEB. 0.25 MG INHALATION (07:33)
[2023-10-06] MEDS: Insulin Glargine-YFGN 100 UNIT/ML Pen 15 UNIT SC (08:45)
[2023-10-06] MEDS: Insulin Lispro 100 UNIT/ML INSULN.PEN SC (08:46)
[2023-10-06] MEDS: Glucerna Shake 120 ML LIQUID PO (08:46)
[2023-10-06] MEDS: Potassium Chloride Oral Tablet 20 MEQ PO (08:46)
[2023-10-06] MEDS: Ascorbic Acid 500 MG Tablet PO (08:47)
[2023-10-06] MEDS: Furosemide 40 MG Tablet PO (08:47)
[2023-10-06] MEDS: DULoxetine Hcl 30 MG Capsule PO ×2 (08:47→21:32)
[2023-10-06] MEDS: Aspirin E.C. 81 MG Tablet PO (08:47)
[2023-10-06] MEDS: Clopidogrel Bisulfate 75 MG Tablet PO (08:47)
[2023-10-06] MEDS: Iron Polysaccharide Complex 150 MG CAPSULE PO (08:47)
[2023-10-06] MEDS: Carvedilol 12.5 MG Tablet PO (08:49)
[2023-10-06] MEDS: guaiFENesin/D-Methorphan TAB.SR.12H 2 TABLET PO ×2 (08:49→21:32)
[2023-10-06] MEDS: Cholecalciferol (VIT D3) 25 MCG TABLET (1,000 UNITS) 62.5 MCG PO (08:50)
[2023-10-06] MEDS: Pantoprazole Sodium 40 MG Tablet PO ×2 (08:50→21:32)
[2023-10-06] MEDS: Clotrimazole/Betamethasone 1 Tube 1 APPLIC TOPICAL ×2 (08:50→21:33)
[2023-10-06] MEDS: Multivitamins,Therapeutic Tablet 1 TABLET PO (08:50)
[2023-10-06 09:00] VITALS: BP 110/49
[2023-10-06 11:24] LABS: Bedside Glucose 99 mg/dL (74-106)
[2023-10-06] MEDS: Tuberculin,Purif.prot.deriv. 50 TU/ML Vial 0.1 ML ID (12:21)
[2023-10-06 15:24] VITALS: BP 108/50; PULSE 89; RESP 18; TEMP 36.1; O2SAT 94
--- NOTE | 2023-10-06 15:43 | PCM.PN.DRR ---
TCU RX Drug Regimen Review Subjective/Objective Subjective/Objective: Subjective: 88 YOF admitted to TCU 10/05/23 s/p hospitalization for pneumonia, heart failure exacerbation. Admitted to TCU for rehabilitation and strengthening prior to discharge home where she resides alone. Objective: Allergies lisinopril Allergy (Verified 09/03/23 09:41) edema aspirin Adverse Reaction (Verified 09/03/23 09:41) Upset Stomach Current Medications Generic Name Dose Route Start Last Admin Trade Name Freq PRN Reason Stop Dose Admin Acetaminophen 1,000 mg 10/05/23 21:35 Acetaminophen 500 Mg Tablet PO Q6H PRN PRN Pain Score 1-10 Albuterol Sulfate 2.5 mg 10/05/23 11:47 Albuterol 2.5 Mg/3 Ml Vial.Neb. INHALATION Q4H PRN shortness of breath or wheezing Albuterol/Ipratropium 3 ml 10/05/23 17:45 10/06/23 13:35 Ipratropium/Albuterol Sulfate 3 Ml Ampul.Neb INHALATION 3 ml Q6HWA.RT MUSA Administration Ascorbic Acid 500 mg 10/06/23 10:00 10/06/23 08:47 Ascorbic Acid 500 Mg Tablet PO 500 mg 1000 MUSA Administration Aspirin 81 mg 10/06/23 08:00 10/06/23 08:47 Aspirin E.C. 81 Mg Tablet PO 81 mg BREAKFAST [facility]USA Administration Atorvastatin Calcium 40 mg 10/05/23 22:00 10/05/23 21:58 Atorvastatin Calcium 40 Mg Tablet PO 40 mg QHS [facility]USA Administration Budesonide 0.25 mg 10/05/23 22:00 10/06/23 07:33 Budesonide Respules 0.5 Mg/2 Ml Ampul.Neb. INHALATION 0.25 mg BID.RT MUSA Administration Carvedilol 12.5 mg 10/05/23 17:00 10/06/23 08:49 Carvedilol 12.5 Mg Tablet PO 12.5 mg BIDCM [facility] Administration Protocol Cholecalciferol 62.5 mcg 10/06/23 08:00 10/06/23 08:50 Cholecalciferol (Vit D3) 25 Mcg Tablet (1,000 Units) PO 62.5 mcg DAILYCM [facility] Administration Clopidogrel Bisulfate 75 mg 10/06/23 10:00 10/06/23 08:47 Clopidogrel Bisulfate 75 Mg Tablet PO 75 mg DAILY [facility] Administration Clotrimazole 1 applic 10/05/23 22:00 10/06/23 08:50 Clotrimazole/Betamethasone 1 Tube TOPICAL 10/15/23 22:01 1 applic BID MUSA Administration Protocol Compound Med 2 click 10/05/23 22:00 10/06/23 09:02 Arthritis Pain Compound 60 Click Tube TOPICAL Not Given BID [facility] Protocol Duloxetine HCl 30 mg 10/05/23 22:00 10/06/23 08:47 Duloxetine Hcl 30 Mg Capsule PO 30 mg BID [facility] Administration Furosemide 40 mg 10/06/23 10:00 10/06/23 08:47 Furosemide 40 Mg Tablet PO 40 mg DAILY [facility] Administration Protocol Guaifenesin 2 tablet 10/05/23 22:00 10/06/23 08:49 Guaifenesin/D-Methorphan Tab.Sr.12h PO 2 tablet BID [facility] Administration Insulin Glargine 15 unit 10/06/23 10:00 10/06/23 08:45 Insulin Glargine-Yfgn 100 Unit/Ml Pen SC 15 unit DAILY [facility] Administration Insulin Human Lispro 5 unit 10/05/23 18:30 10/06/23 12:20 Insulin Lispro 100 Unit/Ml Insuln.Pen SC Not Given TIDAC [facility] Losartan Potassium 25 mg 10/06/23 10:00 10/06/23 08:48 Losartan Potassium 25 Mg Tablet PO Not Given DAILY [facility] Protocol Multivitamins 1 tablet 10/06/23 08:00 10/06/23 08:50 Multivitamins,Therapeutic Tablet PO 1 tablet DAILYCM [facility] Administration Pantoprazole Sodium 40 mg 10/05/23 22:00 10/06/23 08:50 Pantoprazole Sodium 40 Mg Tablet PO 40 mg BID [facility] Administration Polyethylene Glycol 17 gm 10/06/23 10:00 10/06/23 08:47 Polyethylene Glycol 3350 17 Gm Packet PO Not Given DAILY [facility] Polysaccharide Iron Complex 150 mg 10/06/23 10:00 10/06/23 08:47 Iron Polysaccharide Complex 150 Mg Capsule PO 150 mg DAILY [facility] Administration Pramipexole Dihydrochloride 1.5 mg 10/05/23 22:00 10/05/23 21:59 Pramipexole Di-Hcl 0.5 Mg Tablet PO 1.5 mg QHS [facility] Administration Senna/Docusate Sodium 2 tablet 10/05/23 11:53 Senna/Docusate Sodium 1 Tablet PO BID PRN constipation Sodium Chloride 10 - 40 ml 10/05/23 12:16 10/05/23 21:57 0.9% Saline Lock 10 Ml Syringe IV 10 ml UD PRN Administration SALINE FLUSH Tuberculin PPD 0.1 ml 10/13/23 10:00 Tuberculin,Purif.Prot.Deriv. 50 Tu/Ml Vial ID 10/13/23 10:01 X1 ONE Problem List (Updated 10/05/23 @ 21:[address] Richy Pierson MD) Type 2 diabetes mellitus with hyperglycemia (Acute) GERD (gastroesophageal reflux disease) (Acute) Iron deficiency anemia (Acute) Depression (Acute) COPD (chronic obstructive pulmonary disease) (Chronic) Acute on chronic heart failure with preserved ejection fraction (HFpEF) (Acute) Acute hypoxic respiratory failure (Acute) RLS (restless legs syndrome) (Acute) TIA (transient ischemic attack) (Acute) Hyperlipidemia (Acute) Right lumbar radiculopathy (Acute) Debility (Acute) Vital Signs Temp Pulse Resp BP Pulse Ox O2 Del Method O2 Flow Rate 96.9 F L 89 18 108/50 L 94 Nasal Cannula 2 10/06/23 15:24 10/06/23 15:24 10/06/23 15:24 10/06/23 15:24 10/06/23 15:24 10/06/23 15:24 10/06/23 15:30 Oxygen Flow Rate (L/min) 2 Oxygen Delivery Method Nasal Cannula Weight: 66.678 kg Body Mass Index (BMI) 27.0 Sodium 140 mmol/L (136-145) 10/06/23 05:36 Potassium 3.4 mmol/L (3.5-5.1) L 10/06/23 05:36 Chloride 102 mmol/L (98-107) 10/06/23 05:36 Carbon Dioxide 31.0 mmol/L (21.0-32.0) 10/06/23 05:36 Anion Gap 7 (5-15) 10/06/23 05:36 BUN 50 mg/dL (7-18) H 10/06/23 05:36 Creatinine 1.37 mg/dL (0.55-1.02) H 10/06/23 05:36 Est GFR (MDRD) Af Amer 47 mL/min (>60) L 10/06/23 05:36 Est GFR (MDRD) Non-Af 39 mL/min (>60) L 10/06/23 05:36 BUN/Creatinine Ratio 36.5 RATIO (10-20) H 10/06/23 05:36 Glucose 111 mg/dL (74-106) H 10/06/23 05:36 Assessment/Plan: 1. Pain: Arthritis Pain compound topically BID, Acetaminophen 1000mg PO Q6h PRN Pain 1-10, Please continue to monitor for increased/decreased S/S pain, PRN medication usage, local site irritation/redness. - To date, the patient has not used any PRN medication doses. pain appears to be managed at this time. 2. CAD/ CHF/ HLD: Aspirin 81mg PO Daily, Lipitor 40mg PO QHS, Coreg 12.5mg PO BID, Plavix 75mg PO Daily, Furosemide 40mg PO Daily, Losartan 25mg PO Daily. Please continue to monitor for S/S bleeding/bruising, Lipid panel annually or sooner if clinically indicated (last panel WNL 08/2023), BP (last 108/50), pulse (last 89 BPM), renal function (SCr 1.37 10/06/23 which is baseline), potassium (last 3.4 on 10/05), H/H (hgb 9, hct 29.3% on 10/05). 3. COPD/ Cough: Budesonide inhalation BID, Duoneb inhalation Q6h, Albuterol inhalation Q4h PRN, Mucinex-D 2 tab PO BID. Please continue to monitor for S/S COPD exacerbation, SOB, wheezing, HR, congestion, cough. 4. Diabetes Type II: Glargine 15 unit SC Daily, Humalog 5 unit SC TID. Please continue to monitor BG levels (range 99-113), A1c (7.2% on 09/14/23), S/S hypoglycemia, local site irritation/redness. 5. Esophagitis/ Duodenitis: Protonix 40mg PO BID. Please continue to monitor for S/S bleeding, stomach upset, headache. 6. Iron deficiency anemia: Ferrex 150mg PO Daily, Vitamin C 500mg PO Daily. Please continue to monitor iron studies as clinically indicated (last done 08/19/23), H/H. 7. Restless Leg Syndrome: Pramipexole 1.5mg PO QHS. Please continue to monitor for hallucinations, drowsiness, nausea, headache, constipation. 8. Tinea Pedis: Lotrisone cream topically BID. Please continue to monitor for resolution of infection. 9. General Wellness: Vitamin D 25mcg PO daily, MVI 1 tab PO daily. 10. Bowel: Miralax 17g PO daily, Senna/Docusate 2 tab PO BID PRN. Please continue to monitor for increased/decreased constipation and/or diarrhea. -The patient has not had a BM since admission (admit <48hrs ago). If no BM in the next 48hrs, please consider giving PRN medication to help facilitate BM, thank you Assessment/Plan for indications treated with psychotropic medications: 1. Depression: Cymbalta 30mg PO BID. Please consider a GDR by 03/2024 if clinically indicated, thank you. Medical chart and medication regimen reviewed. The following medication irregularities or issues were identified: 1. Hypokalemia: Patient's potassium this morning was 3.4 mmol/L. The patient did have a x1 replacement this morning, please continue to monitor closely as scheduled potassium supplementation may be warranted. 2. Depression: Cymbalta 30mg PO BID. Please consider a GDR by 03/2024 if clinically indicated, thank you. Date Date of Note:: 10/06/23
[2023-10-06 16:38] LABS: Bedside Glucose 106 mg/dL (74-106)
--- NOTE | 2023-10-06 17:49 | CASEMGMT ---
Social Work Pt readmitted from previous stay. SW spoke with pt and answered pt questions. No changes to assessment or code status: DNR-CCA, no intubation. Educated to [facility] insurance with NRD 10/09 and continued stay is not guaranteed with each review. Pt's goal is to return home alone at [facility]. SW confirmed pt requesting BSC and rollator at DC. SW to coordinate and will continue to follow for DC planning. Erinn Lees, LABORER WOOD PRESERVING PLANT TOOL COORDINATOR
[2023-10-06 17:57] VITALS: BP 100/56; PULSE 98
[2023-10-06 19:43] VITALS: PULSE 91; RESP 30
[2023-10-06] MEDS: Budesonide Respules 0.5 MG/2 ML AMPUL.NEB. INHALATION (19:43)
[2023-10-06 21:28] LABS: Bedside Glucose 183 mg/dL (74-106)
[2023-10-06] MEDS: Atorvastatin Calcium 40 MG Tablet PO (21:32)
[2023-10-06] MEDS: Pramipexole Di-HCl 0.5 MG Tablet 1.5 MG PO (21:32)
[2023-10-06] MEDS: Arthritis Pain Compound 60 CLICK TUBE TOPICAL (21:32)
[2023-10-07] VITALS (7 sets, daily range): BP systolic 103–110; BP diastolic 45–51; PULSE 84–104; RESP 18–22; TEMP 36.3; O2SAT 90–97; BMI 27.3
[2023-10-07 05:58] LABS: Hematocrit 29.3 % (37-47)
[2023-10-07] MEDS: Senna/Docusate Sodium 1 Tablet 2 TABLET PO (06:13)
--- NOTE | 2023-10-07 06:16 | NURSING ---
LBM noted to be 10/04/23. BS x 4 quadrants hypoactive. Senokot 2 tabs administered this AM.
[2023-10-07 06:37] LABS: Anion Gap 6 (5-15); BUN 51 mg/dL (7-18); BUN/Creat Ratio 40.5 RATIO (10-20); Calcium,Total 8.3 mg/dL (8.5-10.1); Chloride 103 mmol/L (98-107); Creatinine, Serum 1.26 mg/dL (0.55-1.02); EST Glomerular Filtration Rate 43 mL/min (>60); Est Glom Filt Rate - Afr Amer 52 mL/min (>60); Glucose 99 mg/dL (74-106); Potassium 3.5 mmol/L (3.5-5.1); Sodium Level 141 mmol/L (136-145)
[2023-10-07 06:48] LABS: Bedside Glucose 94 mg/dL (74-106)
[2023-10-07] MEDS: Budesonide Respules 0.5 MG/2 ML AMPUL.NEB. INHALATION ×2 (07:30→18:34)
[2023-10-07] MEDS: Ipratropium/Albuterol Sulfate 3 ML AMPUL.NEB INHALATION ×3 (07:30→18:34)
[2023-10-07] MEDS: Carvedilol 12.5 MG Tablet PO ×2 (09:02→17:21)
[2023-10-07] MEDS: Aspirin E.C. 81 MG Tablet PO (09:03)
[2023-10-07] MEDS: Ascorbic Acid 500 MG Tablet PO (09:04)
[2023-10-07] MEDS: Cholecalciferol (VIT D3) 25 MCG TABLET (1,000 UNITS) 62.5 MCG PO (09:05)
[2023-10-07] MEDS: Multivitamins,Therapeutic Tablet 1 TABLET PO (09:06)
[2023-10-07] MEDS: Losartan Potassium 25 MG Tablet PO (09:07)
[2023-10-07] MEDS: Iron Polysaccharide Complex 150 MG CAPSULE PO (09:08)
[2023-10-07] MEDS: Furosemide 40 MG Tablet PO (09:08)
[2023-10-07] MEDS: DULoxetine Hcl 30 MG Capsule PO ×2 (09:08→21:10)
[2023-10-07] MEDS: guaiFENesin/D-Methorphan TAB.SR.12H 2 TABLET PO ×2 (09:09→21:10)
[2023-10-07] MEDS: Pantoprazole Sodium 40 MG Tablet PO ×2 (09:10→21:12)
[2023-10-07] MEDS: Clopidogrel Bisulfate 75 MG Tablet PO (09:10)
[2023-10-07 11:05] LABS: Bedside Glucose 163 mg/dL (74-106)
[2023-10-07 16:38] LABS: Bedside Glucose 122 mg/dL (74-106)
[2023-10-07] MEDS: Arthritis Pain Compound 60 CLICK TUBE TOPICAL (21:10)
[2023-10-07] MEDS: Pramipexole Di-HCl 0.5 MG Tablet 1.5 MG PO (21:11)
[2023-10-07] MEDS: Atorvastatin Calcium 40 MG Tablet PO (21:11)
[2023-10-07] MEDS: Clotrimazole/Betamethasone 1 Tube 1 APPLIC TOPICAL (21:17)
[2023-10-07 21:18] LABS: Bedside Glucose 194 mg/dL (74-106)
--- NOTE | 2023-10-07 22:07 | NURSING ---
Patient reports increased cough. Cough noted to be moist, unproductive. Nebulizer treatments in place as well as Mucinex 1200mg bid. Weights reviewed: 10/04 147.7lb, 10/05 147.0lb, 10/06 149.4lb. Patient is currently on Lasix 40mg qd. Will leave communication for Dr. Pierson to review. Will continue to monitor.
[2023-10-07] MEDS: Albuterol 2.5 MG/3 ML VIAL.NEB. INHALATION (23:07)
[2023-10-08] VITALS (7 sets, daily range): BP systolic 104; BP diastolic 47; PULSE 68–96; RESP 20–24; TEMP 36.2; O2SAT 92–94; BMI 26.9
[2023-10-08 06:34] LABS: Bedside Glucose 114 mg/dL (74-106)
[2023-10-08] MEDS: Ipratropium/Albuterol Sulfate 3 ML AMPUL.NEB INHALATION ×3 (07:40→19:26)
[2023-10-08] MEDS: Budesonide Respules 0.5 MG/2 ML AMPUL.NEB. INHALATION ×2 (07:41→19:26)
[2023-10-08] MEDS: Cholecalciferol (VIT D3) 25 MCG TABLET (1,000 UNITS) 62.5 MCG PO (08:43)
[2023-10-08] MEDS: Aspirin E.C. 81 MG Tablet PO (08:43)
[2023-10-08] MEDS: Multivitamins,Therapeutic Tablet 1 TABLET PO (08:43)
[2023-10-08] MEDS: Clotrimazole/Betamethasone 1 Tube 1 APPLIC TOPICAL ×2 (08:45→21:14)
[2023-10-08] MEDS: DULoxetine Hcl 30 MG Capsule PO ×2 (08:45→21:10)
[2023-10-08] MEDS: Arthritis Pain Compound 60 CLICK TUBE TOPICAL ×2 (08:45→21:14)
[2023-10-08] MEDS: Iron Polysaccharide Complex 150 MG CAPSULE PO (08:45)
[2023-10-08] MEDS: guaiFENesin/D-Methorphan TAB.SR.12H 2 TABLET PO ×2 (08:46→21:12)
[2023-10-08] MEDS: Clopidogrel Bisulfate 75 MG Tablet PO (08:46)
[2023-10-08] MEDS: Polyethylene Glycol 3350 17 GM PACKET PO (08:46)
[2023-10-08] MEDS: Pantoprazole Sodium 40 MG Tablet PO ×2 (08:46→21:10)
[2023-10-08] MEDS: Ascorbic Acid 500 MG Tablet PO (08:46)
[2023-10-08] MEDS: Furosemide 40 MG Tablet PO (09:50)
[2023-10-08] MEDS: Carvedilol 12.5 MG Tablet PO ×2 (09:50→16:21)
[2023-10-08 11:18] LABS: Bedside Glucose 102 mg/dL (74-106)
--- NOTE | 2023-10-08 21:00 | NURSING ---
Declines to have hs blood sugar checked. Pt is not currently on insulin or oral agents at this time.
[2023-10-08] MEDS: Pramipexole Di-HCl 0.5 MG Tablet 1.5 MG PO (21:11)
[2023-10-08] MEDS: Atorvastatin Calcium 40 MG Tablet PO (21:13)
[2023-10-08 21:31] LABS: Bedside Glucose 120 mg/dL (74-106)
[2023-10-09] MEDS: Albuterol 2.5 MG/3 ML VIAL.NEB. INHALATION (00:08)
[2023-10-09 00:09] VITALS: PULSE 94; RESP 18
[2023-10-09 06:00] VITALS: BMI 27.3
[2023-10-09 06:17] LABS: Bedside Glucose 117 mg/dL (74-106)
[2023-10-09] MEDS: Budesonide Respules 0.5 MG/2 ML AMPUL.NEB. INHALATION ×2 (08:10→18:49)
[2023-10-09] MEDS: Ipratropium/Albuterol Sulfate 3 ML AMPUL.NEB INHALATION ×3 (08:10→18:49)
[2023-10-09 08:20] VITALS: PULSE 89; RESP 18; O2SAT 94
[2023-10-09 08:39] VITALS: BP 108/58; PULSE 101; RESP 20; TEMP 36.6; O2SAT 97
[2023-10-09] MEDS: Cholecalciferol (VIT D3) 25 MCG TABLET (1,000 UNITS) 62.5 MCG PO (08:41)
[2023-10-09] MEDS: Multivitamins,Therapeutic Tablet 1 TABLET PO (08:42)
[2023-10-09] MEDS: Losartan Potassium 25 MG Tablet PO (08:43)
[2023-10-09] MEDS: Aspirin E.C. 81 MG Tablet PO (08:43)
[2023-10-09] MEDS: Carvedilol 12.5 MG Tablet PO ×2 (08:43→17:09)
[2023-10-09] MEDS: Furosemide 40 MG Tablet PO (08:44)
[2023-10-09] MEDS: Iron Polysaccharide Complex 150 MG CAPSULE PO (08:44)
[2023-10-09] MEDS: DULoxetine Hcl 30 MG Capsule PO ×2 (08:44→20:24)
[2023-10-09] MEDS: guaiFENesin/D-Methorphan TAB.SR.12H 2 TABLET PO ×2 (08:45→20:24)
[2023-10-09] MEDS: Ascorbic Acid 500 MG Tablet PO (08:46)
[2023-10-09] MEDS: Clopidogrel Bisulfate 75 MG Tablet PO (08:46)
[2023-10-09] MEDS: Pantoprazole Sodium 40 MG Tablet PO ×2 (08:46→20:24)
[2023-10-09] MEDS: Arthritis Pain Compound 60 CLICK TUBE TOPICAL ×2 (08:47→20:23)
[2023-10-09] MEDS: Clotrimazole/Betamethasone 1 Tube 1 APPLIC TOPICAL ×2 (08:47→20:25)
[2023-10-09 13:29] VITALS: PULSE 91; RESP 19
[2023-10-09 18:49] VITALS: PULSE 87; RESP 30
[2023-10-09 19:58] VITALS: RESP 20
[2023-10-09] MEDS: Atorvastatin Calcium 40 MG Tablet PO (20:24)
[2023-10-09] MEDS: Pramipexole Di-HCl 0.5 MG Tablet 1.5 MG PO (20:24)
[2023-10-10] VITALS (9 sets, daily range): BP systolic 110–113; BP diastolic 39–45; PULSE 90–100; RESP 16–30; TEMP 36.3; O2SAT 89–96; BMI 27.5
--- NOTE | 2023-10-10 00:30 | NURSING ---
Late entry for 10/08/23 at 2100: Pt asked this nurse various questions regarding dc planning, transition to home, and upcoming appointment w/ manual training teacher, Dr. Dora Delvalle through [facility]. Pt notes dc plan from TCU prior to transfer to [facility] last week was to have home health services. This nurse reviewed most recent SW notes and did not note any specific dc plans in place. Pt is aware she has an insurance review next week. Explained goal of home health services and that this additional support is temporary. Discussed use of O2 at home as DME is new from a discharge prior to admission to TCU. Pt was not consistently using O2 at home. Notes shortness of breath throughout the day w/ increased activity but recovers fairly quick by using IS and resting. Educated on purse-lipped breathing to promote improved air exchange and decrease shortness of breath. Encouraged to have staff increase liter flow to 3 lpm temporarily for approximately 20-30 minutes prior to any planned and after any activity/mobility. Pt is agreeable to this idea. Pt was also strongly encouraged to keep appt w/ Dr. Delvalle for currently pulmonary status to be assessed and to devise a plan upon dc from TCU to prevent rehospitalization. Discussed the option of palliative care services in the home setting for additional support of disease and symptom management as their providers will coordinate care w/ other providers involved in her care. Pt receptive of the information provided and will discuss w/ her children.
[2023-10-10] MEDS: Ipratropium/Albuterol Sulfate 3 ML AMPUL.NEB INHALATION ×4 (00:40→18:40)
[2023-10-10] MEDS: Budesonide Respules 0.5 MG/2 ML AMPUL.NEB. INHALATION ×2 (08:08→18:40)
[2023-10-10] MEDS: Clotrimazole/Betamethasone 1 Tube 1 APPLIC TOPICAL ×2 (08:15→20:46)
[2023-10-10] MEDS: guaiFENesin/D-Methorphan TAB.SR.12H 2 TABLET PO ×2 (08:16→20:51)
[2023-10-10] MEDS: Ascorbic Acid 500 MG Tablet PO (08:16)
[2023-10-10] MEDS: Clopidogrel Bisulfate 75 MG Tablet PO (08:16)
[2023-10-10] MEDS: Furosemide 40 MG Tablet PO (08:16)
[2023-10-10] MEDS: Pantoprazole Sodium 40 MG Tablet PO ×2 (08:16→20:51)
[2023-10-10] MEDS: Iron Polysaccharide Complex 150 MG CAPSULE PO (08:16)
[2023-10-10] MEDS: Multivitamins,Therapeutic Tablet 1 TABLET PO (08:17)
[2023-10-10] MEDS: DULoxetine Hcl 30 MG Capsule PO ×2 (08:17→20:52)
[2023-10-10] MEDS: Aspirin E.C. 81 MG Tablet PO (08:17)
[2023-10-10] MEDS: Cholecalciferol (VIT D3) 25 MCG TABLET (1,000 UNITS) 62.5 MCG PO (08:17)
[2023-10-10] MEDS: Arthritis Pain Compound 60 CLICK TUBE TOPICAL ×2 (08:20→20:50)
[2023-10-10] MEDS: Carvedilol 12.5 MG Tablet PO ×2 (08:21→17:16)
--- NOTE | 2023-10-10 08:43 | NURSING ---
Offered covid vaccine, VIS provided. Patient refuses at this time.
[2023-10-10] MEDS: Acetaminophen 500 MG Tablet 1000 MG PO (10:21)
[2023-10-10] MEDS: Albuterol 2.5 MG/3 ML VIAL.NEB. INHALATION (10:36)
[2023-10-10] MEDS: Furosemide 40 MG/4 ML Vial IV (17:20)
--- NOTE | 2023-10-10 17:36 | NURSING ---
updated Dr Pierson on pt wheezing and SOB with activity, oxygen increased to 3 liters with activity. sat 91% at rest on 3 liters at this time. pt sounds congested but continues with a PROFESSOR OF CHEMICAL ENGINEERING cough. new order to administer IV lasix, CXR and BMP in AM. kdur ordered as well. pt updated on all.
--- NOTE | 2023-10-10 18:15 | NURSING ---
pt off unit for cxr
--- NOTE | 2023-10-10 18:19 | RAD_ITS ---
STUDY: X-RAY CHEST REASON FOR EXAM: Female, 88 years old. shortness of breath/wheezing. TECHNIQUE: PA and lateral views of the chest. COMPARISON: None. FINDINGS: The lungs are clear and expanded. There is no demonstrated pleural abnormality. Normal size heart. Normal mediastinum and yamilka. Normal visualized pulmonary arteries. Normal visualized aortic arch and descending thoracic aorta. Normal visualized thoracic spine. Normal visualized ribs, clavicles, and shoulders. There is no demonstrated abnormality of the visualized soft tissue structures of the upper abdomen. RAD/Chest PA and Lateral IMPRESSION: Normal x-ray examination of the chest. Electronically Signed: Yosi Price MD at 21:11 EDT ,
--- NOTE | 2023-10-10 18:25 | NURSING ---
pt returned from cxr
[2023-10-10] MEDS: Pramipexole Di-HCl 0.5 MG Tablet 1.5 MG PO (20:52)
[2023-10-10] MEDS: Atorvastatin Calcium 40 MG Tablet PO (20:52)
[2023-10-11] VITALS (10 sets, daily range): BP systolic 95–126; BP diastolic 39–50; PULSE 91–104; RESP 16–30; TEMP 36.3; O2SAT 92–97; BMI 27.5
[2023-10-11] MEDS: Ipratropium/Albuterol Sulfate 3 ML AMPUL.NEB INHALATION ×4 (00:07→18:45)
[2023-10-11] MEDS: 0.9% Saline Lock 10 ML Syringe IV ×3 (05:56→22:19)
[2023-10-11] MEDS: Furosemide 40 MG/4 ML Vial IV ×2 (05:58→13:22)
[2023-10-11 06:24] LABS: Anion Gap 7 (5-15); BUN 49 mg/dL (7-18); Calcium,Total 8.1 mg/dL (8.5-10.1); Chloride 104 mmol/L (98-107); Creatinine, Serum 1.29 mg/dL (0.55-1.02); EST Glomerular Filtration Rate 42 mL/min (>60); Est Glom Filt Rate - Afr Amer 50 mL/min (>60); Estimated Creatinine Clearance 28.36 ml/min; Glucose 107 mg/dL (74-106); Potassium 3.1 mmol/L (3.5-5.1); Sodium Level 142 mmol/L (136-145)
[2023-10-11] MEDS: Senna/Docusate Sodium 1 Tablet 2 TABLET PO (08:48)
[2023-10-11] MEDS: Pantoprazole Sodium 40 MG Tablet PO ×2 (08:48→22:18)
[2023-10-11] MEDS: Cholecalciferol (VIT D3) 25 MCG TABLET (1,000 UNITS) 62.5 MCG PO (08:48)
[2023-10-11] MEDS: Potassium Chloride Oral Tablet 20 MEQ 40 MEQ PO ×2 (08:48→18:00)
[2023-10-11] MEDS: Ascorbic Acid 500 MG Tablet PO (08:48)
[2023-10-11] MEDS: Clopidogrel Bisulfate 75 MG Tablet PO (08:49)
[2023-10-11] MEDS: Iron Polysaccharide Complex 150 MG CAPSULE PO (08:49)
[2023-10-11] MEDS: guaiFENesin/D-Methorphan TAB.SR.12H 2 TABLET PO ×2 (08:49→22:18)
[2023-10-11] MEDS: DULoxetine Hcl 30 MG Capsule PO ×2 (08:49→22:17)
[2023-10-11] MEDS: Aspirin E.C. 81 MG Tablet PO (08:49)
[2023-10-11] MEDS: Multivitamins,Therapeutic Tablet 1 TABLET PO (08:49)
[2023-10-11] MEDS: Arthritis Pain Compound 60 CLICK TUBE TOPICAL ×2 (08:50→22:17)
[2023-10-11] MEDS: Clotrimazole/Betamethasone 1 Tube 1 APPLIC TOPICAL ×2 (08:51→22:19)
--- NOTE | 2023-10-11 08:58 | NURSING ---
pt feeling better today, not struggling as much with SOB this AM. pt cough more moist and mucus sounds looser. pt still having trouble producing sputum. pt resting in chair, oxygen at 3 liters, sat 96%. will continue to monitor.
[2023-10-11] MEDS: Budesonide Respules 0.5 MG/2 ML AMPUL.NEB. INHALATION ×2 (09:00→18:45)
[2023-10-11] MEDS: Carvedilol 12.5 MG Tablet PO ×2 (11:06→18:00)
--- NOTE | 2023-10-11 14:49 | CASEMGMT ---
Social Work This worker sent referral to [facility] via [facility] for Rollater and 3 in 1 commode. NERISSA Mensah
--- NOTE | 2023-10-11 15:53 | CASEMGMT ---
Social Work SW met with patient and son at bedside to discuss transition of care plans and complete BIMS/ PHQ-2 assessment. Patient participated and completed BIMS () and PHQ-2 (). SW followed up with patient regarding insurance estimated date for discharge; currently pending. Patient informed SW that she would like to discharge home when approved to discharge. SW confirmed with patient that anticipated transition of care plans is home with home health care services. Patient choice is required for home health provider. The patient confirmed that she would like DME ordered for rollator and BSC. Patient's son informed ABBEY that he would like to look at BSC to confirm that patient's bathroom can accommodate for size of DME. SW notified the Charge Nurse to show son the BSC as one was not located in the patient's room. In addition, the patient's son informed ABBEY that he will be participating in patient care plan meeting on 10/12/2023 at 11AM. ABBEY will follow up with patient and family at care planning meeting to discuss any updates regarding insurance estimated discharge date, provide list for patient choice, and DME support. ZAHIDA Mix
[2023-10-11] MEDS: Atorvastatin Calcium 40 MG Tablet PO (22:18)
[2023-10-11] MEDS: Pramipexole Di-HCl 0.5 MG Tablet 1.5 MG PO (22:18)
[2023-10-12 02:45] VITALS: PULSE 87; RESP 22
[2023-10-12] MEDS: Albuterol 2.5 MG/3 ML VIAL.NEB. INHALATION ×2 (02:45→06:48)
[2023-10-12] MEDS: Furosemide 40 MG/4 ML Vial IV ×2 (05:22→14:52)
[2023-10-12 05:25] VITALS: BP 108/52; PULSE 89
[2023-10-12] MEDS: 0.9% Saline Lock 10 ML Syringe IV ×3 (05:26→22:47)
[2023-10-12 05:32] VITALS: BMI 27.3
[2023-10-12] MEDS: Ipratropium/Albuterol Sulfate 3 ML AMPUL.NEB INHALATION ×3 (06:48→19:26)
[2023-10-12 06:50] VITALS: PULSE 94; RESP 16; O2SAT 94
[2023-10-12 08:35] LABS: Anion Gap 5 (5-15); BUN 46 mg/dL (7-18); BUN/Creat Ratio 32.6 RATIO (10-20); Chloride 104 mmol/L (98-107); Creatinine, Serum 1.41 mg/dL (0.55-1.02); EST Glomerular Filtration Rate 38 mL/min (>60); Est Glom Filt Rate - Afr Amer 46 mL/min (>60); Estimated Creatinine Clearance 25.86 ml/min; Glucose 108 mg/dL (74-106); Potassium 3.1 mmol/L (3.5-5.1); Sodium Level 142 mmol/L (136-145)
[2023-10-12] MEDS: Aspirin E.C. 81 MG Tablet PO (08:39)
[2023-10-12] MEDS: Potassium Chloride Oral Tablet 20 MEQ 40 MEQ PO ×2 (08:40→17:51)
[2023-10-12] MEDS: Multivitamins,Therapeutic Tablet 1 TABLET PO (08:40)
[2023-10-12] MEDS: Carvedilol 12.5 MG Tablet PO ×2 (08:40→17:51)
[2023-10-12] MEDS: Cholecalciferol (VIT D3) 25 MCG TABLET (1,000 UNITS) 62.5 MCG PO (08:40)
[2023-10-12] MEDS: Losartan Potassium 25 MG Tablet PO (08:42)
[2023-10-12] MEDS: Iron Polysaccharide Complex 150 MG CAPSULE PO (08:42)
[2023-10-12] MEDS: DULoxetine Hcl 30 MG Capsule PO ×2 (08:42→22:43)
[2023-10-12] MEDS: guaiFENesin/D-Methorphan TAB.SR.12H 2 TABLET PO ×2 (08:43→22:44)
[2023-10-12] MEDS: Clopidogrel Bisulfate 75 MG Tablet PO (08:44)
[2023-10-12] MEDS: Pantoprazole Sodium 40 MG Tablet PO ×2 (08:44→22:44)
[2023-10-12] MEDS: Ascorbic Acid 500 MG Tablet PO (08:44)
--- NOTE | 2023-10-12 09:36 | NURSING ---
Ice Cream Dispenser Note; MDS for 10/12/2023 Complete
--- NOTE | 2023-10-12 11:08 | CASEMGMT ---
Social Work IDT met with patient, dtr and son for care plan meeting. Discussed patient's progress in PT/OT/SN. Educated to [facility] insurance and last review date was 10/09. Insurance issued LCD 10/13, DC 10/14. Pt agreeable to DC. Son to transport. SW provided printed skilled HHC list with quality and resource data via [employer]. Pt to notify SW of choice. Confirmed DME needs of BSC and rollator and pt agreeable to pay rollator cost of $60. No other needs noted. Erinn Lees, HAMMER ADJUSTER RN HEART
--- NOTE | 2023-10-12 13:04 | CASEMGMT ---
Addendum entered by Nilson John 10/12/23 14:03: [facility] confirmed acceptance of patient for home health care services for SN/PT/OT. SOC over weekend Original Note: Social Work Patient met with SW in office to notify of patient choice for home health care. Patient is requesting home health care provider [facility] for PT/OT/SN. Patient confirmed that family has agreed to discharge on 10/15/2023. Patient informed SW that family will provide transportation at discharge. SW phoned [facility] care for home health care referral. [place] [facility] rollator. DME to be delivered at bedside. Discharge: Home 10/15/2023 with [facility] PT/OT/SN. BSC/Rollator ZAHIDA Mix
[2023-10-12 13:23] VITALS: PULSE 90; RESP 16
[2023-10-12 16:00] VITALS: BP 120/58; PULSE 95; RESP 16; TEMP 36.7; O2SAT 92
[2023-10-12 19:26] VITALS: PULSE 88; RESP 30
[2023-10-12] MEDS: Budesonide Respules 0.5 MG/2 ML AMPUL.NEB. INHALATION (19:26)
--- NOTE | 2023-10-12 20:11 | PCM.DC.SUM ---
Providers Date of Admission: 10/05/23 Primary Care Physician: Dr. Anu Mortensen MD Consultations 10/12/23 12:32 Consult: Hospice / Palliative Care Routine Consulting Provider: [facility] Reason for Consult: PALLIATIVE CARE - Severe COPD/CHF EMERGENT Consult: No MD Notified: Yes Date Notified: 10/12/23 Time Notified: 12:32 Method of Notification: Text Reason For Visit: HYPOXIA Diagnosis Discharge Diagnosis (1) Debility: Status: Inactive Code(s): R53.81 - Other malaise (2) Right lumbar radiculopathy: Status: Inactive Code(s): M54.16 - Radiculopathy, lumbar region (3) Acute hypoxic respiratory failure: Status: Acute Code(s): J96.01 - Acute respiratory failure with hypoxia (4) Acute on chronic heart failure with preserved ejection fraction (HFpEF): Status: Acute Code(s): I50.33 - Acute on chronic diastolic (congestive) heart failure (5) Non-STEMI (non-ST elevated myocardial infarction): Status: Resolved Code(s): I21.4 - Non-ST elevation (NSTEMI) myocardial infarction (6) COPD (chronic obstructive pulmonary disease): Status: Chronic Code(s): J44.9 - Chronic obstructive pulmonary disease, unspecified (7) Hyperlipidemia: Status: Inactive Code(s): E78.5 - Hyperlipidemia, unspecified (8) TIA (transient ischemic attack): Status: Inactive Code(s): G45.9 - Transient cerebral ischemic attack, unspecified (9) Depression: Status: Acute Code(s): F32.A - Depression, unspecified (10) Iron deficiency anemia: Status: Acute Code(s): D50.9 - Iron deficiency anemia, unspecified (11) GERD (gastroesophageal reflux disease): Status: Acute Code(s): K21.9 - Gastro-esophageal reflux disease without esophagitis (12) RLS (restless legs syndrome): Status: Inactive Code(s): G25.81 - Restless legs syndrome (13) Type 2 diabetes mellitus with hyperglycemia: Status: Acute Code(s): E11.65 - Type 2 diabetes mellitus with hyperglycemia Plan 88 year old female with below past medical history hospitalized for acute respiratory failiure with hypoxia 2/2 acute on chronic HFpEF, pneumonia ruled out, admitted to TCU with debility, here for rehabilitation, strengthening, prior to discharger home alone. Debility - PT/OT. Pain - Tylenol 1000mg q6 prn pain (1-10), Arthritis pain compound 2 clicks topical bid. Bowel - Miralax 17gm daily, senna/colace 2 tablets bid prn. Adult immunization - Administer pneumonia vaccine, covid vaccine, flu vaccine as appropriate. DVT prophylaxis - Hold, on dual antiplatelet therapy. COPD - Budesonide 0.25mg inhaled bid, Duoneb 3ml [id number], Albuterol 2.5mg neb q4h prn. Coronary artery disease - Carvedilol 12.5mg bid, Losartan 25mg daily, Plavix 75mg daily, Aspirin 81mg daily. Hyperlipidemia - Atorvastatin 4mg qhs. HFpEF - Carvedilol 12.5mg bid, Losartan 25mg daily, Furosemide 40mg daily. Vitamin D deficiency - D3 25mcg daily. Tinea pedis (left) Lotrisone cream topical bid. 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 Iron deficiency anemia - Ferrex 150mg daily, Vitamin C 500mg daily. Nutrition - Glucerna Shake 120ml tidcm. Cough - Robitussin DM 2 tablets bid. Diabetes Mellitus II - Glargine 15 units daily, Lispro 5 units tidac. Nutrition - MVI daily. Esophagitis/Duodenitis - Pantoprazole 40mg bid. Restless leg syndrome - Mirapex 1.5mg qhs. Medications at Discharge Home Medications atorvastatin 40 mg tablet 40 mg PO QHS cholesterol 02/22/16 clopidogrel 75 mg tablet 75 mg PO DAILY BLOOD THINNER 02/22/16 multivitamin with folic acid 400 mcg tablet 1 tab PO DAILY supplement 02/22/16 albuterol sulfate 90 mcg/actuation aerosol inhaler 2 puff inhalation BID PRN shortness of breath or wheezing 03/16/18 cholecalciferol (vitamin D3) 25 mcg (1,000 unit) tablet 2,500 unit PO DAILY SUPPLEMENT 10/09/18 albuterol sulfate 2.5 mg/3 mL (0.083 %) solution for nebulization 2.5 mg inhalation Q4H PRN shortness of breath or wheezing 05/28/22 ipratropium 0.5 mg-albuterol 3 mg (2.5 mg base)/3 mL nebulization soln 3 ml inhalation Q6H PRN shortness of breath 05/28/22 carvedilol 12.5 mg tablet 12.5 mg PO BID CHOLESTEROL #180 tabs 04/27/23 duloxetine 30 mg capsule,delayed release 30 mg PO BID pain 08/17/23 pramipexole 1.5 mg tablet 1.5 mg PO QHS restless leg syndrome 08/18/23 budesonide 0.5 mg/2 mL suspension for nebulization 0.25 mg inhalation BID breathing 30 days #0 mL 09/09/23 dextromethorphan-guaifenesin 30 mg-600 mg tablet extended [id number] hr (Mucinex DM) 2 tab PO BID cough 7 days #0 tabs 09/09/23 ascorbic acid (vitamin C) 500 mg tablet 500 mg PO 1000 #0 tabs 10/12/23 furosemide 40 mg tablet 40 mg PO BIDCM FLUID RETENTION 30 days #60 tabs 10/12/23 losartan 25 mg tablet 25 mg PO DAILY 30 days #30 tabs 10/12/23 pantoprazole 40 mg tablet,delayed release 40 mg PO BID 30 days #60 tabs 10/12/23 polysaccharide iron complex 150 mg iron capsule (Ferrex) 150 mg PO DAILY 30 days #30 caps 10/12/23 potassium chloride 20 mEq tablet,extended release(part/cryst) 20 meq PO BIDCM 30 days #60 tabs 10/12/23 Hospital Course Operations None Procedures None Summary of Care Provided Minutes Spent on Discharge: 35 Hospital Course: 88 year old female with below past medical history hospitalized for acute respiratory failiure with hypoxia 2/2 acute on chronic HFpEF, pneumonia ruled out, admitted to TCU with debility, here for rehabilitation, strengthening, prior to discharge home alone. Discharge home 10/15/2023, [facility] PT/OT/SN, BSC, Rollator. BSC: Patient is unable to access bathroom safely and requires a BSC. Rollator: Patient is unsafe with a cane and requires frequent rest breaks that can be resolved with use of a rollator for ambulation in the home and the community. Physical Exam Const alert General Appearance: cooperative HEENT normocephalic Eyes PERRL and EOMs intact bilaterally Neck supple, no JVD and no carotid bruits Resp normal respiratory effort, normal air movement and clear to auscultation bilaterally Auscultation: crackles left base and wheezes Cardio regular rate and regular rhythm GI normal to inspection, nondistended, normoactive bowel sounds, non-tender and non-distended Extremity normal capillary refill General Extremity: Negative for edema Skin no rashes or lesions noted General Skin Exam: no breakdown Psych affect normal Appearance: appropriate Weight / BMI Weight Weight: 67.857 kg Body Mass Index (BMI) 27.3 ABG / Lab / Microbiology Data 10/07/23 05:43 10/12/23 05:31 Laboratory: Laboratory Results - last 24 hr 10/12/23 05:31: Sodium 142, Potassium 3.1 L, Chloride 104, Carbon Dioxide 33.0 H, Anion Gap 5, BUN 46 H, Creatinine 1.41 H, Estim Creat Clear Calc 25.86, Est GFR (MDRD) Af Amer 46 L, Est GFR (MDRD) Non-Af 38 L, BUN/Creatinine Ratio 32.6 H, Glucose 108 H, Calcium 8.0 L D/C Instructions Discharge Diet: No restrictions Discharge Activity: Return to Normal Activity, May Shower and Use Walker Weight Bearing Status: Weight bearing as tolerated Call your doctor if you observe: Fever of 101 or Higher, Inability to urinate, Inability to have a bowel movement, Shortness of breath, Dizziness, Fainting spells, Swelling in the ankles, Chest pain and Uncontrolled pain Additional Instructions: Discharge home 10/15/2023, [facility] PT/OT/SN, BSC, Rollator. BSC: Patient is unable to access bathroom safely and requires a BSC. Rollator: Patient is unsafe with a cane and requires frequent rest breaks that can be resolved with use of a rollator for ambulation in the home and the community. Please Follow Up With: Sorting Grapple Operator, Dr. Dora Delvalle [facility] When: DINESH. Meaningful Use Info Meaningful Use Diagnoses (Choose all that apply): None applicable Discharge Plan Admission Admit Date/Time: 10/05/23 11:04 Primary Reason for Your Visit: Debility. Attending Provider: Richy Pierson Chi Primary Care Provider: nAu Mortensen Consulting Providers: Jorje Bey; Sharron lBand; Maria T Dougherty; Irma Santiago BENCH ASSEMBLY INSPECTOR Instructions Additional Instructions / Restrictions: Discharge home 10/15/2023, [facility] PT/OT/SN, BSC, Rollator. BSC: Patient is unable to access bathroom safely and requires a BSC. Rollator: Patient is unsafe with a cane and requires frequent rest breaks that can be resolved with use of a rollator for ambulation in the home and the community. Discharge Orders/Prescriptions Prescriptions: New polysaccharide iron complex [Ferrex 150] 150 mg iron Capsule 150 mg PO DAILY 30 Days Qty: 30 0RF potassium chloride 20 mEq Tablet,Er Particles/Crystals 20 meq PO BIDCM 30 Days Qty: 60 0RF ascorbic acid (vitamin C) 500 mg Tablet 500 mg PO 1000 Qty: 0 0RF pantoprazole 40 mg Tablet,Delayed Release (Dr/Ec) 40 mg PO BID 30 Days Qty: 60 0RF losartan 25 mg Tablet 25 mg PO DAILY 30 Days Qty: 30 0RF Continued cholecalciferol (vitamin D3) 1,000 unit tablet 2,500 unit PO DAILY albuterol sulfate 2.5 mg /3 mL (0.083 %) solution for nebulization 2.5 mg inhalation Q4H PRN (Reason: shortness of breath or wheezing) ipratropium-albuterol 0.5 mg-3 mg(2.5 mg base)/3 mL solution for nebulization 3 ml inhalation Q6H PRN (Reason: shortness of breath) duloxetine 30 mg capsule,delayed release(DR/EC) 30 mg PO BID atorvastatin 40 MG tablet 40 mg PO QHS clopidogrel 75 MG tablet 75 mg PO DAILY multivitamin with folic acid 1 TABLET tablet 1 tab PO DAILY albuterol sulfate 90 mcg/actuation HFA aerosol inhaler 2 puff INHALATION BID PRN (Reason: shortness of breath or wheezing) Hold Instructions: Order Changed pramipexole 1.5 mg tablet 1.5 mg PO QHS Mucinex DM 30-600 mg Tablet Extended Release 12 Hr 2 tab PO BID 7 Days Qty: 0 0RF budesonide 0.5 mg/2 mL suspension for nebulization 0.25 mg inhalation BID 30 Days Qty: 0 0RF carvedilol 12.5 mg tablet 12.5 mg PO BID Qty: 180 4RF Rx Instructions: must administer with a meal/food Changed furosemide 40 mg tablet 40 mg PO BIDCM 30 Days Qty: 60 3RF Discontinued diclofenac sodium 1 % gel 1 inch TOPICAL DAILY PRN (Reason: unknown) Hold Instructions: not on in tcu Patient Comments: pt using, but unaware of directions polyethylene glycol 3350 17 gram Powder In Packet 17 g PO DAILY Qty: 0 0RF sennosides-docusate sodium [Stool Softener-Stimulant Laxat] 8.6-50 mg Tablet 2 tab PO BID PRN (Reason: constipation) Qty: 0 0RF pantoprazole 40 mg Tablet,Delayed Release (Dr/Ec) 40 mg PO DAILY 30 Days Qty: 30 0RF ferrous sulfate [FeroSul] 325 mg (65 mg iron) Tablet 325 mg PO QODAY@LUNCH Qty: 0 0RF aspirin 81 mg Tablet,Delayed Release (Dr/Ec) 81 mg PO BREAKFAST 30 Days Qty: 30 2RF Hold Instructions: no currently on in Tcu insulin lispro [Humalog KwikPen Insulin] 100 unit/mL Insulin Pen See Protocol subcut ACHS Qty: 0 0RF Protocol: 4. Sliding Scale Insulin High-Med Dosing Condition: 150-199 mg/dl = 2 units Condition: 200-259 mg/dl = 4 units Condition: 260-324 mg/dl = 6 units Condition: 325-374 mg/dl = 8 units Condition: 375-409 mg/dl = 10 units Condition: 410-449 mg/dl = 11 units Condition: Greater than 449 call physician Protocol Text: - Use for Total Daily Dose of Insulin 56-80 units - Patient who are insulin resistant or septic HIGH MEDIUM DOSING ALGORITHM insulin lispro [Humalog KwikPen Insulin] 100 unit/mL Insulin Pen 10 unit subcut TIDAC Qty: 0 0RF insulin glargine [Lantus Solostar U-100 Insulin] 100 unit/mL (3 mL) insulin pen 15 unit subcut DAILY Qty: 15 2RF Rx Instructions: Hold if glucose less than 130 mg/dl dexamethasone 2 mg tablet See Rx Instructions .ROUTE .COMPLEX Qty: 12 0RF Rx Instructions: 2 mg orally twice daily for 3 days and then 2 mg once daily for 3 days, then 1 mg for 6 days and then stop losartan 50 mg tablet 25 mg PO DAILY Qty: 90 3RF Rx Instructions: Hold for SBP less than 130 mmHg Referrals / Follow Up: Anu Mortensen MD [Primary Care Provider] - Disposition Disposition (needs filled in before D/C Order can be placed): Home Health Service
[2023-10-12] MEDS: Arthritis Pain Compound 60 CLICK TUBE TOPICAL (22:43)
[2023-10-12] MEDS: Atorvastatin Calcium 40 MG Tablet PO (22:43)
[2023-10-12] MEDS: Pramipexole Di-HCl 0.5 MG Tablet 1.5 MG PO (22:43)
[2023-10-12] MEDS: Clotrimazole/Betamethasone 1 Tube 1 APPLIC TOPICAL (22:44)
[2023-10-13] VITALS (8 sets, daily range): BP systolic 86–131; BP diastolic 31–57; PULSE 84–100; RESP 16–26; TEMP 36.2; O2SAT 96–98; BMI 27.3
[2023-10-13] MEDS: 0.9% Saline Lock 10 ML Syringe IV ×3 (05:19→21:50)
[2023-10-13] MEDS: Furosemide 40 MG/4 ML Vial IV ×2 (05:19→14:52)
[2023-10-13 05:59] LABS: Absolute Lymphocyte Count 1.42 X10^3/uL (0.83-4.51); Absolute Neutrophil Count 3.7 X10^3/uL (2.0-7.7); Basophil# 0.04 X10^3/uL; Basophil% 0.6 % (0-1); Eosinophil# 0.25 X10^3/uL; Eosinophils% 3.9 % (0-5); Hematocrit 28.6 % (37-47); Hemoglobin 8.6 g/dL (12.0-15.0); Lymphocyte # 1.42 X10^3/ul (0.83-4.51); Lymphocyte % 22.1 % (19-41); Mean Corp Hgb Conc 30.1 g/dL (32-36); Mean Corpuscular Hgb 29.9 pg (27.0-32.0); Mean Corpuscular Volume 99.3 fL (81-99); Mean Platelet Vol. 10.3 fl (6.2-12.0); Monocyte# 0.98 X10^3/uL; Monocyte% 15.3 % (0-10); NRBC Flagged by Analyzer 0 % (0-5); Neutrophil # 3.67 X10^3/uL (2.7-7.7); Neutrophil % 57.2 % (47-70); POSITIVE MORPHOLOGY YES; Platelet Count 170 K/mm3 (150-450); RBC Distribution Width CV 18.8 % (11.6-14.6); RBC Distribution Width SD 67.7 fl (35.1-43.9); Red Blood Count 2.88 M/mm3 (4.2-5.4); White Blood Count 6.4 K/mm3 (4.4-11.0)
[2023-10-13 06:16] LABS: Anion Gap 5 (5-15); BUN 43 mg/dL (7-18); BUN/Creat Ratio 36.8 RATIO (10-20); Calcium,Total 8.1 mg/dL (8.5-10.1); Chloride 104 mmol/L (98-107); Creatinine, Serum 1.17 mg/dL (0.55-1.02); EST Glomerular Filtration Rate 47 mL/min (>60); Est Glom Filt Rate - Afr Amer 56 mL/min (>60); Estimated Creatinine Clearance 31.17 ml/min; Glucose 107 mg/dL (74-106); Potassium 3.7 mmol/L (3.5-5.1); Sodium Level 142 mmol/L (136-145)
[2023-10-13 07:05] LABS: Differential Indicated SCAN CRITERIA MET
[2023-10-13 07:17] LABS: Differential Comment SCANNED
[2023-10-13 07:18] LABS: Anisocytosis 3+
[2023-10-13] MEDS: Budesonide Respules 0.5 MG/2 ML AMPUL.NEB. INHALATION ×2 (07:18→18:15)
[2023-10-13] MEDS: Ipratropium/Albuterol Sulfate 3 ML AMPUL.NEB INHALATION ×2 (07:18→18:15)
[2023-10-13] MEDS: Carvedilol 12.5 MG Tablet PO ×2 (08:08→17:56)
[2023-10-13] MEDS: Aspirin E.C. 81 MG Tablet PO (08:08)
[2023-10-13] MEDS: Potassium Chloride Oral Tablet 20 MEQ 40 MEQ PO (08:08)
[2023-10-13] MEDS: Multivitamins,Therapeutic Tablet 1 TABLET PO (08:09)
[2023-10-13] MEDS: Cholecalciferol (VIT D3) 25 MCG TABLET (1,000 UNITS) 62.5 MCG PO (08:09)
[2023-10-13] MEDS: Iron Polysaccharide Complex 150 MG CAPSULE PO (08:10)
[2023-10-13] MEDS: DULoxetine Hcl 30 MG Capsule PO ×2 (08:10→21:45)
[2023-10-13] MEDS: guaiFENesin/D-Methorphan TAB.SR.12H 2 TABLET PO ×2 (08:11→21:43)
[2023-10-13] MEDS: Ascorbic Acid 500 MG Tablet PO (08:11)
[2023-10-13] MEDS: Pantoprazole Sodium 40 MG Tablet PO ×2 (08:11→21:45)
[2023-10-13] MEDS: Clopidogrel Bisulfate 75 MG Tablet PO (08:11)
[2023-10-13] MEDS: Acetaminophen 500 MG Tablet 1000 MG PO (09:22)
--- NOTE | 2023-10-13 15:17 | NURSING ---
1500-patient returned from appt with Dr. Delvalle. Orders for Luis. Spoke with pharmacy, non formulary, the interchange would be the duoneb she is already taking. Prescription called in for her to pickup and start taking after DC.
[2023-10-13] MEDS: Pramipexole Di-HCl 0.5 MG Tablet 1.5 MG PO (21:43)
[2023-10-13] MEDS: Atorvastatin Calcium 40 MG Tablet PO (21:45)
[2023-10-14 01:55] VITALS: PULSE 89; RESP 24
[2023-10-14] MEDS: Ipratropium/Albuterol Sulfate 3 ML AMPUL.NEB INHALATION ×4 (01:55→19:41)
[2023-10-14 06:00] VITALS: BMI 27.2
[2023-10-14 06:59] LABS: Anion Gap 6 (5-15); BUN 41 mg/dL (7-18); BUN/Creat Ratio 33.1 RATIO (10-20); Calcium,Total 8.2 mg/dL (8.5-10.1); Chloride 103 mmol/L (98-107); Creatinine, Serum 1.24 mg/dL (0.55-1.02); EST Glomerular Filtration Rate 44 mL/min (>60); Est Glom Filt Rate - Afr Amer 53 mL/min (>60); Estimated Creatinine Clearance 29.42 ml/min; Glucose 114 mg/dL (74-106); Potassium 3.2 mmol/L (3.5-5.1); Sodium Level 142 mmol/L (136-145)
[2023-10-14 07:16] VITALS: PULSE 107; RESP 22; O2SAT 95
[2023-10-14] MEDS: Budesonide Respules 0.5 MG/2 ML AMPUL.NEB. INHALATION ×2 (07:16→19:41)
[2023-10-14] MEDS: Potassium Chloride Oral Tablet 20 MEQ 40 MEQ PO (09:13)
[2023-10-14] MEDS: Cholecalciferol (VIT D3) 25 MCG TABLET (1,000 UNITS) 62.5 MCG PO (09:14)
[2023-10-14] MEDS: Carvedilol 12.5 MG Tablet PO ×2 (09:15→17:21)
[2023-10-14] MEDS: Potassium Chloride Oral Tablet 20 MEQ PO ×2 (09:15→17:21)
[2023-10-14] MEDS: Iron Polysaccharide Complex 150 MG CAPSULE PO (09:15)
[2023-10-14] MEDS: Aspirin E.C. 81 MG Tablet PO (09:16)
[2023-10-14] MEDS: Ascorbic Acid 500 MG Tablet PO (09:16)
[2023-10-14] MEDS: Multivitamins,Therapeutic Tablet 1 TABLET PO (09:17)
[2023-10-14] MEDS: DULoxetine Hcl 30 MG Capsule PO ×2 (09:17→22:50)
[2023-10-14] MEDS: Pantoprazole Sodium 40 MG Tablet PO ×2 (09:17→22:50)
[2023-10-14] MEDS: Furosemide 40 MG Tablet PO (09:18)
[2023-10-14] MEDS: Clopidogrel Bisulfate 75 MG Tablet PO (09:18)
--- NOTE | 2023-10-14 10:47 | CASEMGMT ---
Social Work SW met with patient at bedside to complete MDS for discharge. SW introduced self to patient; patient provided verbal consent to complete MDS assessment. Patient completed BIM () and PHQ-2 (0/0). SW discussed discharge plans with patient. Patient confirmed discharge plans for returning home with home health care with [facility]. The patient informed that she spoke with [facility] to establish start of care. The patient anticipates follow up with home health care on Tuesday10/16/23. Patient and son confirmed equipment delivery from [employer] for rollator and BSC (3n1). The patient currently has home oxygen via [employer] delivered two weeks prior to hospitalization. Patient confirmed that she has home O2 respiratory supplies and tanks. Discharge: 10/15/2023 Home with [facility] RN/PT/OT; DME: [employer]- rollator and BSC. ZAHIDA Mix
[2023-10-14] MEDS: guaiFENesin/D-Methorphan TAB.SR.12H 2 TABLET PO ×2 (11:19→22:50)
[2023-10-14 13:45] VITALS: PULSE 98; RESP 20
[2023-10-14 14:04] VITALS: BP 119/63; PULSE 88; RESP 18; TEMP 35.9; O2SAT 98
[2023-10-14 17:25] VITALS: BP 119/51; PULSE 92
[2023-10-14 19:41] VITALS: PULSE 96; RESP 30
[2023-10-14] MEDS: Atorvastatin Calcium 40 MG Tablet PO (22:50)
[2023-10-14] MEDS: Pramipexole Di-HCl 0.5 MG Tablet 1.5 MG PO (22:50)
[2023-10-14] MEDS: Clotrimazole/Betamethasone 1 Tube 1 APPLIC TOPICAL (22:51)
[2023-10-14] MEDS: Arthritis Pain Compound 60 CLICK TUBE TOPICAL (22:51)
[2023-10-15 01:24] VITALS: PULSE 91; RESP 28
[2023-10-15] MEDS: Ipratropium/Albuterol Sulfate 3 ML AMPUL.NEB INHALATION ×2 (01:24→07:32)
[2023-10-15 06:23] LABS: Anion Gap 4 (5-15); BUN 38 mg/dL (7-18); BUN/Creat Ratio 31.1 RATIO (10-20); Calcium,Total 8.5 mg/dL (8.5-10.1); Chloride 104 mmol/L (98-107); Creatinine, Serum 1.22 mg/dL (0.55-1.02); EST Glomerular Filtration Rate 44 mL/min (>60); Est Glom Filt Rate - Afr Amer 54 mL/min (>60); Estimated Creatinine Clearance 29.83 ml/min; Glucose 99 mg/dL (74-106); Potassium 3.9 mmol/L (3.5-5.1); Sodium Level 140 mmol/L (136-145)
[2023-10-15 07:32] VITALS: PULSE 114; RESP 22; O2SAT 96
[2023-10-15] MEDS: Budesonide Respules 0.5 MG/2 ML AMPUL.NEB. INHALATION (07:32)
[2023-10-15] MEDS: Potassium Chloride Oral Tablet 20 MEQ PO (08:19)
[2023-10-15] MEDS: Clopidogrel Bisulfate 75 MG Tablet PO (08:19)
[2023-10-15] MEDS: Pantoprazole Sodium 40 MG Tablet PO (08:19)
[2023-10-15] MEDS: Cholecalciferol (VIT D3) 25 MCG TABLET (1,000 UNITS) 62.5 MCG PO (08:19)
[2023-10-15] MEDS: Losartan Potassium 25 MG Tablet PO (08:20)
[2023-10-15] MEDS: Multivitamins,Therapeutic Tablet 1 TABLET PO (08:20)
[2023-10-15] MEDS: DULoxetine Hcl 30 MG Capsule PO (08:20)
[2023-10-15] MEDS: Aspirin E.C. 81 MG Tablet PO (08:20)
[2023-10-15] MEDS: Carvedilol 12.5 MG Tablet PO (08:20)
[2023-10-15] MEDS: guaiFENesin/D-Methorphan TAB.SR.12H 2 TABLET PO (08:20)
[2023-10-15] MEDS: Iron Polysaccharide Complex 150 MG CAPSULE PO (08:20)
[2023-10-15] MEDS: Furosemide 40 MG Tablet PO (08:22)
[2023-10-15] MEDS: Ascorbic Acid 500 MG Tablet PO (08:22)
[2023-10-15 08:29] VITALS: BP 142/61; PULSE 102
[2023-10-15 11:02] VITALS: BP 114/56; PULSE 93; RESP 20; TEMP 36.4; O2SAT 96
--- NOTE | 2023-10-18 13:50 | MDS.RN ---
Information for the mds was obtained from review of the clinical record, interview of resident, staff, and direct observation of resident's care.
== END 2023-10-15 11:30 | disposition home health service (06) | DRG 291 ==
PROVIDERS: Admitting Provider Family Medicine Geriatric Medicine; PCP Internal Medicine; Visit Provider Family Medicine Geriatric Medicine
DX: I13.0 Hypertensive heart and chronic kidney disease with heart failure and stage 1 through stage 4 chronic kidney disease, or unspecified chronic kidney disease (principal); I50.33 Acute on chronic diastolic (congestive) heart failure; E11.22 Type 2 diabetes mellitus with diabetic chronic kidney disease; E11.51 Type 2 diabetes mellitus with diabetic peripheral angiopathy without gangrene; E11.65 Type 2 diabetes mellitus with hyperglycemia; D50.9 Iron deficiency anemia, unspecified; J44.9 Chronic obstructive pulmonary disease, unspecified; Z79.4 Long term (current) use of insulin; G25.81 Restless legs syndrome; F32.A Depression, unspecified; N18.9 Chronic kidney disease, unspecified; E55.9 Vitamin D deficiency, unspecified; K29.80 Duodenitis without bleeding; E78.5 Hyperlipidemia, unspecified; M54.16 Radiculopathy, lumbar region; K21.9 Gastro-esophageal reflux disease without esophagitis; I25.2 Old myocardial infarction; Z79.02 Long term (current) use of antithrombotics/antiplatelets; Z79.51 Long term (current) use of inhaled steroids; Z87.891 Personal history of nicotine dependence; Z79.82 Long term (current) use of aspirin; Z79.899 Other long term (current) drug therapy
CPT/HCPCS: 36415; 71046; 80048; 82962; 85014; 85018; 85025; 94640; 97110; 97116; 97162; 97166; 97530; 97535; 97802; A4216; J1940

== ENCOUNTER 2023-11-03 11:36 | Inpatient (IN) | payer MEDICARE, SELFPAY ==
[2023-11-03] VITALS (13 sets, daily range): BP systolic 114–150; BP diastolic 50–98; PULSE 79–95; RESP 16–22; TEMP 35.9–36.7; O2SAT 91–97; BMI 26.6; BMI 27.7
--- NOTE | 2023-11-03 11:57 | EKG12_ITS ---
Test Reason : GENERAL Blood Pressure : / mmHG Vent. Rate : 077 BPM Atrial Rate : 077 BPM P-R Int : 154 ms QRS Dur : 128 ms QT Int : 440 ms P-R-T Axes : 055 103 039 degrees QTc Int : 497 ms Sinus rhythm with Premature atrial complexes Right bundle branch block Abnormal ECG Confirmed by SILVIA GOETZ, TOO ([id number]), newspaper editor managing CURTIS WETZEL ([id number]) on 11/04/2023 8:22:06 AM Referred By: Confirmed By:TOO VEGA MD
--- NOTE | 2023-11-03 12:56 | CT_ITS ---
STUDY: CT ABDOMEN AND PELVIS WITHOUT CONTRAST REASON FOR EXAM: Female, 88 years old. b/l flank pain RADIATION DOSAGE (If Supplied By Facility): CTDIvol = ( 7.97 ) mGy, DLP = ( 356.60 ) mGycm TECHNIQUE: Transaxial images were obtained from the dome of the diaphragm to the symphysis pubis without oral contrast, and without intravenous contrast. Sagittal and coronal images were reconstructed. Individualized dose optimization techniques were used for this CT. COMPARISON: None. FINDINGS: Linear scarring with volume loss in the right middle lobe. Coronary artery calcification. Normal liver. Normal gallbladder and extrahepatic biliary system. Normal spleen. There is diffuse atrophy of the pancreas. Normal bilateral adrenal glands. There is a 3.3 cm x 3.2 cm cyst in the lateral lower pole of the right kidney. There is atrophy of the right kidney. I suspect a 2.9 cm x 2.8 cm rounded soft tissue mass in the anterior upper pole of the right kidney. This was not a typical cyst on prior CT scan. This is unchanged. Scattered nonobstructive left intrarenal calculi. The largest measures 3 mm. Normal visualized stomach. Normal small intestine. There is diverticulosis, with thickening of the colon wall, and pericolonic inflammation changes consistent with acute diverticulitis. There is non-visualization of the appendix. There is diffuse atherosclerotic calcification of the abdominal aorta and its major visceral branches, without a demonstrated aneurysm. Normal inferior vena cava. Normal retroperitoneum. Normal urinary bladder. There is absence of the uterus consistent with a prior hysterectomy. Normal abdominal wall. There are degenerative changes of the visualized lumbar spine. CT/Abdomen/Pelvis without Cont IMPRESSION: Findings AP with a mild degree of sigmoid diverticulitis. Stable appearance of the right kidney with atrophy and mass in the upper pole. Scattered left nonobstructive intrarenal calculi. Electronically Signed: Ramos Jolley MD at 13:40 EDT ,
[2023-11-03 13:00] LABS: Absolute Lymphocyte Count 1.18 X10^3/uL (0.83-4.51); Absolute Neutrophil Count 3.7 X10^3/uL (2.0-7.7); Basophil# 0.02 X10^3/uL; Basophil% 0.3 % (0-1); Eosinophil# 0.09 X10^3/uL; Eosinophils% 1.5 % (0-5); Hematocrit 28.9 % (37-47); Hemoglobin 9.3 g/dL (12.0-15.0); Lymphocyte # 1.18 X10^3/ul (0.83-4.51); Lymphocyte % 20.1 % (19-41); Mean Corp Hgb Conc 32.2 g/dL (32-36); Mean Corpuscular Hgb 31.3 pg (27.0-32.0); Mean Corpuscular Volume 97.3 fL (81-99); Mean Platelet Vol. 10.2 fl (6.2-12.0); Monocyte# 0.84 X10^3/uL; Monocyte% 14.3 % (0-10); NRBC Flagged by Analyzer 0 % (0-5); Neutrophil # 3.71 X10^3/uL (2.7-7.7); Neutrophil % 63.5 % (47-70); Platelet Count 194 K/mm3 (150-450); RBC Distribution Width CV 17.9 % (11.6-14.6); RBC Distribution Width SD 63.7 fl (35.1-43.9); Red Blood Count 2.97 M/mm3 (4.2-5.4); White Blood Count 5.9 K/mm3 (4.4-11.0)
[2023-11-03] MEDS: fentaNYL 100 MCG/2 ML Ampul 25 MCG IV ×2 (13:13→16:44)
[2023-11-03 13:18] LABS: BNP,B-Type NATRIURETIC PEPTIDE 310.7 pg/mL (0-100)
[2023-11-03 13:26] LABS: Mucous, Urine 0 SEEN /hpf (<or=2+); Red Blood Cells-Urine 0 SEEN /hpf (0-5); Squamous Epithelial Cells - UA 0 SEEN /hpf (5-10)
--- NOTE | 2023-11-03 13:28 | EX.ED.DYSGE1 ---
HPI <Keila Ojeda RN - Last Filed: 11/03/23 14:47> History of Present Illness Chief Complaint: Shortness of Breath Detail of Chief Complaint: Shortness of breath and bilateral flank pain Informant: patient and family Onset/Context/Timing Onset: Weeks (Bilateral flank pain x 1 week, bilateral lower extremity edema x 1 week, shortness of breath worse today) Quality: Aching Current Severity: 8/10 Maximum Severity: 10/10 Worsened by: Palpation activity Relieved by: Rest Narrative Narrative: Patient is an 88-year-old female with past medical history significant for COPD, diabetes, GERD, CHF, and hypertension who was recently discharged from the transitional care unit on 10/15/2023. She presents to the ED with her son for bilateral flank pain and lower extremity edema x 1 week and shortness of breath worsening today. She does report urinary urgency which is normal for her. She denies any recent weight gain. She did contact her primary care provider who prescribed tizanidine yesterday. She did take doses at 8 PM last night, 2 AM and 4 AM this morning without relief. She was recently taken off of oxycodone by palliative care due to nausea. She does report a prior history of kidney stones. She denies injury. She denies recent travel. She denies chest pain and palpitations. She denies abdominal pain. She denies dysuria and hematuria. Prior similar symptoms: No Recent Illness/Hospitalization: Yes PFSH <Keila Ojeda RN - Last Filed: 11/03/23 14:47> [facility] Medical History Acute hypoxic respiratory failure Anemia Bilateral carotid artery stenosis Chronic heart failure with preserved ejection fraction (HFpEF) Chronic kidney disease CKD (chronic kidney disease), stage III Claudication Debility Diverticulosis Dyslipidemia Essential hypertension Heart failure due to high blood pressure History of COPD History of TIA (transient ischemic attack) Hyperlipidemia Hypertension Leg edema Limb weakness Muscle spasm of left shoulder area Neck and back pain PAD (peripheral artery disease) Renal cyst Right lumbar radiculopathy RLS (restless legs syndrome) Shortness of breath Shoulder pain TIA (transient ischemic attack) Vertigo Home Medications atorvastatin 40 mg tablet 40 mg PO QHS cholesterol 02/22/16 [History Last Taken 10/04/23 21:55] clopidogrel 75 mg tablet 75 mg PO DAILY BLOOD THINNER 02/22/16 [History Last Taken 10/05/23 08:50] multivitamin with folic acid 400 mcg tablet 1 tab PO DAILY supplement 02/22/16 [History Last Taken 10/05/23 08:50] albuterol sulfate 90 mcg/actuation aerosol inhaler 2 puff inhalation BID PRN shortness of breath or wheezing 03/16/18 [History Last Taken 09/02/23] cholecalciferol (vitamin D3) 25 mcg (1,000 unit) tablet 2,500 unit PO DAILY SUPPLEMENT 10/09/18 [History Last Taken 10/05/23 08:50] albuterol sulfate 2.5 mg/3 mL (0.083 %) solution for nebulization 2.5 mg inhalation Q4H PRN shortness of breath or wheezing 05/28/22 [History Last Taken 10/03/23 04:30] carvedilol 12.5 mg tablet 12.5 mg PO BID CHOLESTEROL #180 tabs 04/27/23 [Rx Last Taken 10/05/23 08:50] duloxetine 30 mg capsule,delayed release 30 mg PO BID pain 08/17/23 [History Last Taken 10/05/23 08:50] pramipexole 1.5 mg tablet 1.5 mg PO QHS restless leg syndrome 08/18/23 [History Last Taken 10/04/23 21:55] budesonide 0.5 mg/2 mL suspension for nebulization 0.25 mg inhalation BID breathing 30 days #0 mL 09/09/23 [Rx Last Taken 10/05/23 07:00] dextromethorphan-guaifenesin 30 mg-600 mg tablet extended [id number] hr (Mucinex DM) 2 tab PO BID cough 7 days #0 tabs 09/09/23 [Rx Last Taken 10/05/23 08:55] ascorbic acid (vitamin C) 500 mg tablet 500 mg PO 1000 #0 tabs 10/12/23 [Rx Last Taken Unknown] furosemide 40 mg tablet 40 mg PO BIDCM FLUID RETENTION 30 days #60 tabs 10/12/23 [Rx Last Taken Unknown] losartan 25 mg tablet 25 mg PO DAILY 30 days #30 tabs 10/12/23 [Rx Last Taken Unknown] pantoprazole 40 mg tablet,delayed release 40 mg PO BID 30 days #60 tabs 10/12/23 [Rx Last Taken Unknown] polysaccharide iron complex 150 mg iron capsule (Ferrex) 150 mg PO DAILY 30 days #30 caps 10/12/23 [Rx Last Taken Unknown] potassium chloride 20 mEq tablet,extended release(part/cryst) 20 meq PO BIDCM 30 days #60 tabs 10/12/23 [Rx Last Taken Unknown] Allergy/AdvReac Type Severity Reaction Status Date / Time lisinopril Allergy edema Verified 11/03/23 11:37 aspirin AdvReac Upset Verified 11/03/23 11:37 Stomach Family History Mother Heart disease Surgical History History of basal cell carcinoma excision History of carotid angioplasty History of kidney stones History of thyroid surgery History of total hysterectomy Social History household members: none housing: house Smoking Status: Former smoker how long ago did patient quit smokin years ago alcohol intake: current alcohol intake frequency: holidays/special occasions only details: rare substance use type: does not use caffeine: Yes Type: coffee Number of servings: 1 ROS <Keila Ojeda RN - Last Filed: 11/03/23 14:47> ROS ED Constitutional Constitutional ED: Denies chills, fever(s), sweats or weight loss Eyes Eyes: Denies change in vision Cardiovascular Cardiovascular: Denies chest pain, orthopnea, palpitations or racing heartbeat Respiratory/Chest Respiratory/Chest: Reports cough, dyspnea and dyspnea on exertion; Denies orthopnea or sputum Gastrointestinal Gastrointestinal: Denies abdominal pain, constipation, diarrhea, nausea or vomiting Genitourinary Genitourinary ED: Reports urinary frequency; Denies dysuria or hematuria Musculoskeletal Musculoskeletal: Reports back pain and myalgias; Denies neck pain Neurologic Neurologic: Denies headache(s) or paresthesias Hematologic/Lymphatic Hematologic/Lymphatic: Reports systems reviewed and no addt'l complaints, except as documented EXAM <Keila Ojeda RN - Last Filed: 11/03/23 14:47> Physical Exam Narrative Exam Narrative: Patient awake, alert, good historian Const Vital Signs: 11/03/23 11:37 11/03/23 12:41 11/03/23 12:48 Temperature 96.6 F L 97.5 F L Temperature Source Temporal Temporal Pulse Rate 89 88 Respiratory Rate 16 22 H Respiratory Effort Short of Breath Labored Respiratory Depth Shallow Respiratory Pattern Tachypnea Blood Pressure 123/55 H 140/50 H Blood Pressure Mean 77 80 Pulse Ox 91 97 Oxygen Delivery Method Nasal Cannula Nasal Cannula Oxygen Flow Rate (L/min) 2 2 11/03/23 12:45 11/03/23 13:51 11/03/23 14:00 Temperature Temperature Source Pulse Rate 91 84 83 Respiratory Rate 20 H 20 H 21 H Respiratory Effort Respiratory Depth Respiratory Pattern Blood Pressure 140/50 H 114/98 H 114/98 H Blood Pressure Mean 80 103 103 Pulse Ox 97 97 94 Oxygen Delivery Method Nasal Cannula Nasal Cannula Nasal Cannula Oxygen Flow Rate (L/min) 2 2 2 11/03/23 14:15 Temperature 97.2 F L Temperature Source Temporal Pulse Rate 83 Respiratory Rate 20 H Respiratory Effort Respiratory Depth Respiratory Pattern Blood Pressure 116/88 H Blood Pressure Mean 97 Pulse Ox 94 Oxygen Delivery Method Room Air Oxygen Flow Rate (L/min) Positive well nourished and well developed General Appearance ED: well developed and NAD HEENT Reports moist mucous membranes Eyes PERRL and EOMs intact bilaterally Chest Wall inspection of chest normal and palpation of chest normal Resp Resp Narrative: Slightly labored breathing. Able to speak in 4 word sentences. Auscultation: wheezes expiratory wheezes and throughout and diminished lung sounds; Negative for rales or rhonchi Cardio regular rate, regular rhythm, S1 normal heart sound and S2 normal heart sound GI normal to inspection, nondistended, normoactive bowel sounds and non-tender Auscultation: normoactive bowel sounds Palpation: soft Back/Spine General Back: CVA tenderness bilateral Extremity Extremity Narrative: Mild, nonpitting bilateral pedal edema General Extremety ED: Yes edema General Extremity: edema Neuro oriented x3 Sensorium / Orientation: alert Motor Exam: strength 5/5 throughout Psych mental status grossly normal Skin no rashes or lesions noted <Dr. Ana Grayson MD - Last Filed: 11/03/23 14:55> Physical Exam Const Vital Signs: 11/03/23 11:37 11/03/23 12:41 11/03/23 12:48 Temperature 96.6 F L 97.5 F L Temperature Source Temporal Temporal Pulse Rate 89 88 Respiratory Rate 16 22 H Respiratory Effort Short of Breath Labored Respiratory Depth Shallow Respiratory Pattern Tachypnea Blood Pressure 123/55 H 140/50 H Blood Pressure Mean 77 80 Pulse Ox 91 97 Oxygen Delivery Method Nasal Cannula Nasal Cannula Oxygen Flow Rate (L/min) 2 2 11/03/23 12:45 11/03/23 13:51 11/03/23 14:00 Temperature Temperature Source Pulse Rate 91 84 83 Respiratory Rate 20 H 20 H 21 H Respiratory Effort Respiratory Depth Respiratory Pattern Blood Pressure 140/50 H 114/98 H 114/98 H Blood Pressure Mean 80 103 103 Pulse Ox 97 97 94 Oxygen Delivery Method Nasal Cannula Nasal Cannula Nasal Cannula Oxygen Flow Rate (L/min) 2 2 2 11/03/23 14:15 Temperature 97.2 F L Temperature Source Temporal Pulse Rate 83 Respiratory Rate 20 H Respiratory Effort Respiratory Depth Respiratory Pattern Blood Pressure 116/88 H Blood Pressure Mean 97 Pulse Ox 94 Oxygen Delivery Method Room Air Oxygen Flow Rate (L/min) MDM <Keila Ojeda RN - Last Filed: 11/03/23 14:47> [facility] Narrative Medical decision making narrative: IV line initiated. Labwork obtained to evaluate for leukocytosis, anemia, and electrolyte derangement. Urinalysis obtained to evaluate for infection/hematuria. BNP obtained to evaluate for CHF. CT abdomen/pelvis obtained to evaluate for renal stones. EKG obtained to evaluate for cardiac arrhythmia/ischemia. History & Record Review Discussion w/independent historian: Patient and Family Lab Data Attestation: I reviewed the patient's lab results. Labs: Laboratory Results - last 24 hr 11/03/23 11/03/23 12:50 13:20 WBC 5.9 RBC 2.97 L Hgb 9.3 L Hct 28.9 L MCV 97.3 MCH 31.3 MCHC 32.2 RDW Std Deviation 63.7 H RDW Coeff of Ha 17.9 H Plt Count 194 MPV 10.2 Immature Gran % (Auto) 0.300 Neut % (Auto) 63.5 Lymph % (Auto) 20.1 [place] % (Auto) 14.3 H Eos % (Auto) 1.5 Baso % (Auto) 0.3 Absolute Neuts (auto) 3.7 Absolute Lymphs (auto) 1.18 Nucleated RBC % 0 Sodium 141 Potassium 2.6 L* Chloride 99 Carbon Dioxide 36.0 H Anion Gap 6 BUN 62 H Creatinine 1.25 H Estim Creat Clear Calc 28.84 Est GFR (MDRD) Af Amer 52 L Est GFR (MDRD) Non-Af 43 L BUN/Creatinine Ratio 49.6 H Glucose 112 H Calcium 8.6 Troponin I High Sens 17 B-Natriuretic Peptide 310.7 H Urine Color Yellow Urine Clarity Sl. Cloudy Urine pH 7.0 Ur Specific [place] 1.005 Urine Protein Negative Urine Glucose (UA) Normal Urine Ketones Negative Urine Occult Blood Negative Urine Nitrite Negative Urine Bilirubin Negative Urine Urobilinogen Normal Ur Leukocyte Esterase 100 H Urine RBC 0 SEEN Urine WBC 0-5 SEEN Ur Squamous Epith Cells 0 SEEN Urine Bacteria 2+ Urine Mucus 0 SEEN Radiography Diagnostic Testing: Clinical Impression(s) from Imaging Studies Abdomen/Pelvis CT 11/03/23 12:56 IMPRESSION: Findings AP with a mild degree of sigmoid diverticulitis. Stable appearance of the right kidney with atrophy and mass in the upper pole. Scattered left nonobstructive intrarenal calculi. Electronically Signed: Ramos Jolley MD at 13:40 EDT , Chest X-Ray 11/03/23 14:02 IMPRESSION: Hyperinflation. Stable mild scarring at the lung bases. No acute abnormality is seen. Electronically Signed: Ramos Jolley MD at 14:38 EDT , EKG Initial EKG: Attestation: I personally reviewed and interpreted this EKG as follows: Interpretation: Sinus Rhythm Comments: Sinus rhythm with PACs with a rate of 77. No evidence of ischemia. Differential Diagnosis Differential Diagnosis: Lumbar muscle strain. Differential Diagnosis: Renal stone Management Discussion w/another healthcare provider: Other (Dr. Grayson, ED provider) Treatment and Re-Evaluation :: Lab work and imaging reviewed. CBC shows a normal white blood cell count of 5.9, hemoglobin 9.3 which is patient baseline with last reported hemoglobin on 10/13/2023 of 8.6, platelets 194. Chemistry shows a sodium of 141, hypokalemia at 2.6, BUN 62, creatinine 1.25 with patient's last reported creatinine 1.22 on 10/15/2023, and glucose 112. High-sensitivity troponin is negative at 17. BNP is elevated at 310.7. Urinalysis is negative for nitrites, positive for leukocytes, 2+ bacteria. CT of the abdomen pelvis shows mild degree of sigmoid diverticulitis, stable right kidney with atrophy and mass in the upper pole, and scattered left nonobstructive intrarenal calculi. EKG shows sinus rhythm with PACs at a rate of 77 with no evidence of ischemia. Chest x-ray was obtained due to shortness of breath showing mild scarring at the lung bases and no acute abnormality. Potassium 10 mill equivalents was ordered due to hypokalemia. Ceftriaxone and metronidazole given for UTI and diverticulitis. Patient was also given a dose of fentanyl for flank pain. Upon reevaluation, patient appears to be resting comfortably in bed with family at bedside. Patient updated on labs and imaging. Patient is agreeable to admission. Hospitalist is contacted by Dr. Grayson for admission. <Dr. Ana Grayson MD - Last Filed: 11/03/23 14:55> [facility] Lab Data Labs: Laboratory Results - last 24 hr 11/03/23 11/03/23 12:50 13:20 WBC 5.9 RBC 2.97 L Hgb 9.3 L Hct 28.9 L MCV 97.3 MCH 31.3 MCHC 32.2 RDW Std Deviation 63.7 H RDW Coeff of Ha 17.9 H Plt Count 194 MPV 10.2 Immature Gran % (Auto) 0.300 Neut % (Auto) 63.5 Lymph % (Auto) 20.1 [place] % (Auto) 14.3 H Eos % (Auto) 1.5 Baso % (Auto) 0.3 Absolute Neuts (auto) 3.7 Absolute Lymphs (auto) 1.18 Nucleated RBC % 0 Sodium 141 Potassium 2.6 L* Chloride 99 Carbon Dioxide 36.0 H Anion Gap 6 BUN 62 H Creatinine 1.25 H Estim Creat Clear Calc 28.84 Est GFR (MDRD) Af Amer 52 L Est GFR (MDRD) Non-Af 43 L BUN/Creatinine Ratio 49.6 H Glucose 112 H Calcium 8.6 Troponin I High Sens 17 B-Natriuretic Peptide 310.7 H Urine Color Yellow Urine Clarity Sl. Cloudy Urine pH 7.0 Ur Specific [place] 1.005 Urine Protein Negative Urine Glucose (UA) Normal Urine Ketones Negative Urine Occult Blood Negative Urine Nitrite Negative Urine Bilirubin Negative Urine Urobilinogen Normal Ur Leukocyte Esterase 100 H Urine RBC 0 SEEN Urine WBC 0-5 SEEN Ur Squamous Epith Cells 0 SEEN Urine Bacteria 2+ Urine Mucus 0 SEEN Radiography Diagnostic Testing: Clinical Impression(s) from Imaging Studies Abdomen/Pelvis CT 11/03/23 12:56 IMPRESSION: Findings AP with a mild degree of sigmoid diverticulitis. Stable appearance of the right kidney with atrophy and mass in the upper pole. Scattered left nonobstructive intrarenal calculi. Electronically Signed: Ramos Jolley MD at 13:40 EDT , Chest X-Ray 11/03/23 14:02 IMPRESSION: Hyperinflation. Stable mild scarring at the lung bases. No acute abnormality is seen. Electronically Signed: Ramos Jolley MD at 14:38 EDT , Treatment and Re-Evaluation :: Lab work and imaging reviewed. CBC shows a normal white blood cell count of 5.9, hemoglobin 9.3 which is patient baseline with last reported hemoglobin on 10/13/2023 of 8.6, platelets 194. Chemistry shows a sodium of 141, hypokalemia at 2.6, BUN 62, creatinine 1.25 with patient's last reported creatinine 1.22 on 10/15/2023, and glucose 112. High-sensitivity troponin is negative at 17. BNP is elevated at 310.7. Urinalysis is negative for nitrites, positive for leukocytes, 2+ bacteria. CT of the abdomen pelvis shows mild degree of sigmoid diverticulitis, stable right kidney with atrophy and mass in the upper pole, and scattered left nonobstructive intrarenal calculi. EKG shows sinus rhythm with PACs at a rate of 77 with no evidence of ischemia. Chest x-ray was obtained due to shortness of breath showing mild scarring at the lung bases and no acute abnormality. Potassium 10 mill equivalents was ordered due to hypokalemia. Ceftriaxone and metronidazole given for UTI and diverticulitis. Patient was also given a dose of fentanyl for flank pain. Upon reevaluation, patient appears to be resting comfortably in bed with family at bedside. Patient updated on labs and imaging. Patient is agreeable to admission. Hospitalist is contacted by Dr. Grayson for admission. Patient seen and evaluated with [employer] student. I personally interviewed and examined the patient. I was involved in all aspects of patient's orders, interpretation of results, and treatment. Patient presents secondary to bilateral flank pain as well as increased shortness of breath. She reports lower back pain bilaterally that is been ongoing for the past couple of days. She denies any known injury. She does have a history of kidney stones but this does not exactly feel similar. She has had some urinary urgency but that is not new or different. No fever or chills. She also reports increased shortness of breath with some slight increase swelling of her lower extremities. Patient recently had hospital admission for shortness of breath and pneumonia. She was discharged from the TCU on the . She has history of COPD and CHF. Patient lying in bed in no acute distress but does appear uncomfortable. Head and neck examination unremarkable. Heart is regular rate and rhythm. Lung sounds are slightly diminished at the bases. Abdomen is soft and nontender anteriorly. Back examination does reveal muscular tenderness in the lumbar paraspinal region. No ecchymosis or abrasions noted. CBC was normal white count of 5.9 with a hemoglobin of 9.3. No left shift noted. Chemistry studies significant for potassium of 2.6. BUN is 62 and creatinine is 1.25 which is near her baseline. Troponin is normal at 17 with a BNP of 310. Urinalysis reveals 2+ bacteria with only 0-5 white cells and no nitrites. CT of the flank reveals mild early diverticulitis. There is a mass in the right upper renal pole that appears stable when compared to prior. Potassium was replaced via IV. Patient given Rocephin as well as Flagyl to cover for her bacteriuria and early diverticulitis. Patient did require a dose of fentanyl here for pain control. Given her multiple comorbidities and weakness we will speak with hospitalist regarding admission. Patient comfortable with the plan. Discharge Plan Dx/Rx/DC Orders Clinical Impression: Urinary tract infection, History of COPD, History of chronic heart failure, Diverticulitis, History of hypertension, History of diabetes mellitus, Acute hypokalemia Disposition Disposition: Acute Care [facility]
[2023-11-03 13:34] LABS: Color, Urine Yellow (Yellow); Glucose, Dipstick Normal (Normal); Ketone-Dipstick Negative (Negative); Leukocyte Esterase-Dipstick 100 /ul (Negative); Nitrite-Dipstick Negative (Negative); Occult Blood-Urine Negative /ul (Negative); Protein-Dipstick Negative (Negative); Specific Gravity, Urine 1.005 (1.002-1.030); Urine Bilirubin Dipstick Negative (Negative); Urine Clarity Sl. Cloudy (Clear); Urine Urobilinogen Normal (Normal)
[2023-11-03 13:42] LABS: Anion Gap 6 (5-15); BUN 62 mg/dL (7-18); BUN/Creat Ratio 49.6 RATIO (10-20); Calcium,Total 8.6 mg/dL (8.5-10.1); Chloride 99 mmol/L (98-107); Creatinine, Serum 1.25 mg/dL (0.55-1.02); EST Glomerular Filtration Rate 43 mL/min (>60); Est Glom Filt Rate - Afr Amer 52 mL/min (>60); Estimated Creatinine Clearance 28.84 ml/min; Glucose 112 mg/dL (74-106); Potassium 2.6 mmol/L (3.5-5.1); Sodium Level 141 mmol/L (136-145); Troponin-I HS 17 pg/mL (3.0-54.0)
[2023-11-03 13:43] LABS: Bacteria 2+ /hpf (None Seen); White Blood Cells 0-5 SEEN /hpf (0-5)
--- NOTE | 2023-11-03 14:02 | RAD_ITS ---
STUDY: X-RAY CHEST REASON FOR EXAM: Female, 88 years old. Shortness of breath TECHNIQUE: Single AP portable view of the chest. COMPARISON: Comparison is made with prior study October 10, 2023. FINDINGS: EKG electrodes are seen. Hyperinflation. Stable mild scarring at the lung bases. No acute infiltrate is seen. There is no demonstrated pleural abnormality. There is mild cardiac enlargement. Normal mediastinum and yamilka. Normal visualized pulmonary arteries. There is atherosclerotic calcification of the aortic arch with tortuosity. Normal visualized thoracic spine. Normal visualized ribs, clavicles, and shoulders. Hiatal hernia. RAD/Chest 1 View (Portable) IMPRESSION: Hyperinflation. Stable mild scarring at the lung bases. No acute abnormality is seen. Electronically Signed: Ramos Jolley MD at 14:38 EDT ,
[2023-11-03] MEDS: Potassium Chloride 10mEq/100mL 10 MEQ/100 ML IV.SOLN. 100 MEQ IV BOLUS ×4 (14:33→17:50)
[2023-11-03] MEDS: Ceftriaxone 1 GM/50 ML BAG IV (14:34)
--- NOTE | 2023-11-03 15:22 | HP.PCM.HOS_ITS ---
HPI - General General Date of Admission: 11/03/23 Date of Service: 11/03/23 Chief Complaint: Abdominal pain, flank pain HPI Narrative The patient is an 88 y/o F w/ PMHx: CKD stage III unclear subtype, HTN, HLD, HFpEF, COPD w/ Chronic Hypoxic Respiratory Failure (2-3L NC), Hx TIA, Chronic BL LE edema, RLS, PAD, recent discharge from TCU following admission for respiratory failure secondary to post-COVID, Acute HFpEF who now re-presents to the [facility] ED on 11/03/23 with history of persistent bilateral flank discomfort, abdominal cramping diffusely as well as diarrhea in addition to ongoing bilateral lower extremity swelling and shortness of breath more pronounced on day of presentation with flank pain described as aching and worsened by activity rated 8-10 out of 10 in severity with recent discharge from transitional care 10/15/2023 with reported urinary urgency which is her baseline with no recent weight gain with PCP prescription for tizanidine for concern of muscle spasms with doses the evening prior as well as at 2 AM and 4 AM without relief recently taken off of oxycodone from palliative care secondary to nausea with history of previous kidney stones but given ongoing discomfort prompted ED evaluation. Workup in the ED included T96.6, heart rate 89, BP 123/55, respiratory rate 16, 91% on 2 L nasal cannula with most recent assessment 10/15/2023 patient noted to be 96% on 3 L nasal cannula, most recent vital signs T97.6, heart rate 83, BP 116/88, respiratory rate 20, 95% on 2 L nasal cannula, CBC with WC 5.9, hemoglobin 9.3, MCV 97.3, platelet 194 without marked shift, BMP with potassium 2.6, Comvax at 36, BUN/creatinine 62/1.25, GFR 43, glucose 112, troponin 17, BNP 310.7, urinalysis with leukocyte Estrace 100, nitrite negative with no marked urine WBCs or RBCs however 2+ bacteria noted, chest x-ray with hyperinflation and stable scarring in the lung bases, CT abdomen and pelvis with stable findings of mild degree of sigmoid diverticulitis, stable appearance right kidney with atrophy and mass in the upper pole, scattered left nonobstructive intrarenal calculi, EKG with sinus rhythm with PACs with no acute evidence of ischemia. In the ED patient administered potassium supplementation, Flagyl, Rocephin and fentanyl 25 mcg IV x 1. PFSH Medical History (Updated 11/03/23 @ 18:[address] Pema Sal MD) Anemia Bilateral carotid artery stenosis Chronic heart failure with preserved ejection fraction (HFpEF) Chronic hypoxic respiratory failure Chronic kidney disease CKD (chronic kidney disease), stage III Claudication COPD (chronic obstructive pulmonary disease) Diverticulosis Dyslipidemia History of TIA (transient ischemic attack) Hyperlipidemia Hypertension Leg edema PAD (peripheral artery disease) Renal cyst Right lumbar radiculopathy RLS (restless legs syndrome) TIA (transient ischemic attack) Vertigo Home Medications atorvastatin 40 mg tablet 40 mg PO QHS cholesterol 02/22/16 [History Last Taken 10/04/23 21:55] clopidogrel 75 mg tablet 75 mg PO DAILY BLOOD THINNER 02/22/16 [History Last Taken 10/05/23 08:50] multivitamin with folic acid 400 mcg tablet 1 tab PO DAILY supplement 02/22/16 [History Last Taken 10/05/23 08:50] albuterol sulfate 90 mcg/actuation aerosol inhaler 2 puff inhalation BID PRN shortness of breath or wheezing 03/16/18 [History Last Taken 09/02/23] cholecalciferol (vitamin D3) 25 mcg (1,000 unit) tablet 2,500 unit PO DAILY SUPPLEMENT 10/09/18 [History Last Taken 10/05/23 08:50] albuterol sulfate 2.5 mg/3 mL (0.083 %) solution for nebulization 2.5 mg inhal ation Q4H PRN shortness of breath or wheezing 05/28/22 [History Last Taken 10/03/23 04:30] carvedilol 12.5 mg tablet 12.5 mg PO BID CHOLESTEROL #180 tabs 04/27/23 [Rx Last Taken 10/05/23 08:50] duloxetine 30 mg capsule,delayed release 30 mg PO BID pain 08/17/23 [History Last Taken 10/05/23 08:50] pramipexole 1.5 mg tablet 1.5 mg PO QHS restless leg syndrome 08/18/23 [History Last Taken 10/04/23 21:55] budesonide 0.5 mg/2 mL suspension for nebulization 0.25 mg inhalation BID breathing 30 days #0 mL 09/09/23 [Rx Last Taken 10/05/23 07:00] dextromethorphan-guaifenesin 30 mg-600 mg tablet extended hr (Mucinex DM) 2 tab PO BID cough 7 days #0 tabs 09/09/23 [Rx Last Taken 10/05/23 08:55] ascorbic acid (vitamin C) 500 mg tablet 500 mg PO 1000 #0 tabs 10/12/23 [Rx Last Taken Unknown] furosemide 40 mg tablet 40 mg PO BIDCM FLUID RETENTION 30 days #60 tabs 10/12/23 [Rx Last Taken Unknown] losartan 25 mg tablet 25 mg PO DAILY 30 days #30 tabs 10/12/23 [Rx Last Taken Unknown] pantoprazole 40 mg tablet,delayed release 40 mg PO BID 30 days #60 tabs 10/12/23 [Rx Last Taken Unknown] polysaccharide iron complex 150 mg iron capsule (Ferrex) 150 mg PO DAILY 30 days #30 caps 10/12/23 [Rx Last Taken Unknown] potassium chloride 20 mEq tablet,extended release(part/cryst) 20 meq PO BIDCM 30 days #60 tabs 10/12/23 [Rx Last Taken Unknown] Allergy/AdvReac Type Severity Reaction Status Date / Time lisinopril Allergy edema Verified 11/03/23 11:37 aspirin AdvReac Upset Verified 11/03/23 11:37 Stomach Family History Mother Heart disease other (Patient does not know her father nor her paternal family history.) Surgical History History of basal cell carcinoma excision History of carotid angioplasty History of kidney stones History of thyroid surgery History of total hysterectomy Social History household members: none housing: house Smoking Status: Former smoker how long ago did patient quit smokin years ago alcohol intake: current alcohol intake frequency: holidays/special occasions only details: rare substance use type: does not use caffeine: Yes Type: coffee Number of servings: 1 ROS ROS Narrative Admission Review of Systems: CONSTITUTIONAL: No weight loss, fever, chills, + weakness or fatigue. HEENT: Eyes: No visual loss, blurred vision, double vision or yellow sclerae. Ears, Nose, Throat: No hearing loss, sneezing, congestion, runny nose or sore throat. SKIN: No rash or itching, lesions, wounds. CARDIOVASCULAR: + Chronic significant edema. No chest pain, chest pressure or chest discomfort, palpitations, orthopnea, syncopal events. RESPIRATORY: + Dyspnea. No marked cough or sputum, wheezing, hemoptysis. GASTROINTESTINAL: + Anorexia, abdominal cramping and discomfort as well as diarrhea. No nausea, vomiting, melena, BRBPR. GENITOURINARY: + Reported bilateral flank discomfort although more consistent with musculoskeletal etiology as reproducible with palpation. No dysuria, frequency, urgency or retention. NEUROLOGICAL: No headache, dizziness, syncope, paralysis, ataxia, numbness or tingling in the extremities, focal weakness, change in bowel or bladder control, seizure. MUSCULOSKELETAL: + muscle, back pain, joint pain or stiffness. HEMATOLOGIC: + Chronic anemia, easy bleeding/bruising. LYMPHATICS: No enlarged nodes. No history of splenectomy. PSYCHIATRIC: No history of depression or anxiety. ENDOCRINOLOGIC: No reports of sweating, cold or heat intolerance. No polyuria or polydipsia. ALLERGIES: + History of allergic rhinitis. Vital Signs Vital Signs Vital Signs: 11/03/23 11:37 11/03/23 12:41 11/03/23 12:48 Temperature 96.6 F L 97.5 F L Temperature Source Temporal Temporal Pulse Rate 89 88 Respiratory Rate 16 22 H Respiratory Effort Short of Breath Labored Respiratory Depth Shallow Respiratory Pattern Tachypnea Blood Pressure 123/55 H 140/50 H Blood Pressure Mean 77 80 Pulse Ox 91 97 Oxygen Delivery Method Nasal Cannula Nasal Cannula Oxygen Flow Rate (L/min) 2 2 11/03/23 12:45 11/03/23 13:51 11/03/23 14:00 Temperature Temperature Source Pulse Rate 91 84 83 Respiratory Rate 20 H 20 H 21 H Respiratory Effort Respiratory Depth Respiratory Pattern Blood Pressure 140/50 H 114/98 H 114/98 H Blood Pressure Mean 80 103 103 Pulse Ox 97 97 94 Oxygen Delivery Method Nasal Cannula Nasal Cannula Nasal Cannula Oxygen Flow Rate (L/min) 2 2 2 11/03/23 14:15 11/03/23 15:00 11/03/23 15:01 Temperature 97.2 F L 98.1 F 97.6 F L Temperature Source Temporal Oral Pulse Rate 83 83 83 Respiratory Rate 20 H 19 H 20 H Respiratory Effort Respiratory Depth Respiratory Pattern Blood Pressure 116/88 H 116/88 H 116/88 H Blood Pressure Mean 97 97 97 Pulse Ox 94 95 95 Oxygen Delivery Method Room Air Oxygen Flow Rate (L/min) Weight Weight: 146 lb Body Mass Index (BMI) 26.6 Physical Exam Narrative Physical Examination: General: Awake, alert, oriented x 3 and cooperative, seated upright in the ED bed, fatigued, mildly increased respiratory rate but no distress. Skin: Normal color, normal turgor, no icterus, no cyanosis except for notable bilateral lower extremity venous stasis skin changes, occasional abrasion. HEENT: AT/NC, EOMI, PERRLA, dry MM, no carotid bruits or JVD noted. Lungs: Diminished, greater bases, mildly increased respiratory rate but no distress, no rales, ronchi or wheezing. Heart: Regular rate and rhythm; no gallop, rub audible. Abdomen: Soft, overweight, mild generalized abdominal discomfort worse left lower quadrant with some voluntary guarding but no rebound, mildly distended tympanitic, hyperactive BS, no appreciated HSM. Extremities: No cyanosis, no clubbing, significant pedal to knee bilateral 2+ pitting edema. Neurological: Patient awake, alert, oriented as noted, cognitive function intact; pupils equally reactive to light and accommodation, cranial nerves grossly normal, moving all 4 extremities, no focal deficits, strength moderately to severely global decreased. Psychiatric: Affect appears fatigued, no acute evidence of depressive or anxiety feelings. Results Lab / Micro Data 11/03/23 12:50 11/03/23 12:50 Labs: Laboratory Results - last 24 hr 11/03/23 12:50: WBC 5.9, RBC 2.97 L, Hgb 9.3 L, Hct 28.9 L, MCV 97.3, MCH 31.3, MCHC 32.2, RDW Std Deviation 63.7 H, RDW Coeff of Ha 17.9 H, Plt Count 194, MPV 10.2, Immature Gran % (Auto) 0.300, Neut % (Auto) 63.5, Lymph % (Auto) 20.1, [place] % (Auto) 14.3 H, Eos % (Auto) 1.5, Baso % (Auto) 0.3, Absolute Neuts (auto) 3.7, Absolute Lymphs (auto) 1.18, Nucleated RBC % 0, Sodium 141, Potassium 2.6 L*, Chloride 99, Carbon Dioxide 36.0 H, Anion Gap 6, BUN 62 H, Creatinine 1.25 H , Estim Creat Clear Calc 28.84, Est GFR (MDRD) Af Amer 52 L, Est GFR (MDRD) Non- Af 43 L, BUN/Creatinine Ratio 49.6 H, Glucose 112 H, Calcium 8.6, Troponin I High Sens 17, B-Natriuretic Peptide 310.7 H 11/03/23 13:20: Urine Color Yellow, Urine Clarity Sl. Cloudy, Urine pH 7.0, Ur Specific [place] 1.005, Urine Protein Negative, Urine Glucose (UA) Normal, Urine Ketones Negative, Urine Occult Blood Negative, Urine Nitrite Negative, Urine Bilirubin Negative, Urine Urobilinogen Normal, Ur Leukocyte Esterase 100 H, Urine RBC 0 SEEN, Urine WBC 0-5 SEEN, Ur Squamous Epith Cells 0 SEEN, Urine Bacteria 2+, Urine Mucus 0 SEEN Imaging Radiology Impression Abdomen/Pelvis CT 11/03/23 12:56 IMPRESSION: Findings AP with a mild degree of sigmoid diverticulitis. Stable appearance of the right kidney with atrophy and mass in the upper pole. Scattered left nonobstructive intrarenal calculi. Electronically Signed: Ramos Jolley MD at 13:40 EDT , Chest X-Ray 11/03/23 14:02 IMPRESSION: Hyperinflation. Stable mild scarring at the lung bases. No acute abnormality is seen. Electronically Signed: Ramos Jolley MD at 14:38 EDT , 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-3L NC), Hx TIA, Chronic BL LE edema, RLS, PAD, recent discharge from TCU following admission for respiratory failure secondary to post-COVID, Acute HFpEF who now re-presents to the [facility] ED on 11/03/23 with history of persistent bilateral flank discomfort, abdominal cramping diffusely as well as diarrhea in addition to ongoing bila teral lower extremity swelling and shortness of breath more pronounced on day of presentation with flank pain described as aching and worsened by activity rated 8-10 out of 10 in severity with recent discharge from transitional care 10/15/2023 with reported urinary urgency which is her baseline with no recent weight gain with PCP prescription for tizanidine for concern of muscle spasms with doses the evening prior as well as at 2 AM and 4 AM without relief recently taken off of oxycodone from palliative care secondary to nausea with history of previous kidney stones but given ongoing discomfort prompted ED evaluation. #1. Acute Diverticulitis: Will admit to [facility], maintain on judicious hydration, monitor I&Os, allow clears until improving, treat with rocephin and flagyl regimen as initiated in the ED, anti-emetics, pain regimen PRN. Consider diet advancement in AM if clinically improved. #2. Questionable Acute Urinary Tract Infection: UA upon ED evaluation minimally remarkable, pending UCx, monitor I/Os, continue IV Rocephin w/ transition as able pending sensitivities and speciation. #3. Hypokalemia: Admission K+ 2.6, magnesium level requested, supplementation given, repeat level in AM. #4. Chronic normocytic anemia/iron deficiency anemia: Admission hemoglobin 9.3, MCV 97.3, baseline hemoglobin primarily more recently 8-9, will continue to trend, continue iron supplementation. #5. BL Flank discomfort w/ History nephrolithiasis, noted nonobstructive calculi, possible UTI as noted but more suspicious for musculoskeletal etiology: CT abdomen and pelvis with noted nephrolithiasis but not marked appearing and no evidence of any obstructive process, again patient flank discomfort reproducible and more consistent with musculoskeletal etiology. #6. Chronic Kidney Disease Stage III, unclear subtype: Admission BUN/Cr 62/1.25, baseline renal function primarily 1.1-1.4, repeat BMP in AM. #7. HFpEF: 09/04/2023 echocardiogram with normal LV, LV systolic function normal , EF 70%, PASP 30 mmHg. Will judiciously hydrate given history, will continue patient Plavix, statin, Coreg, losartan, Lasix home regimen. #8. Hypertension: Continue home regimen including Coreg, Lasix, losartan, PRN hydralazine. #9. Hyperlipidemia: We will continue patient home statin therapy. #10. 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 #11. PAD: We will continue patient home Plavix, statin, hypertensive regimen as noted. #12. History of TIA: We will continue patient Plavix, statin, hypertensive regimen as noted. #13. Chronic bilateral lower extremity lymphedema/edema: Will place neck Fernando wraps. #14. Restless leg syndrome: Will continue patient on pramipexole regimen. #15. GERD: We will continue patient on PPI. #16. DVT prophylaxis: Heparin. #17. CODE status: Patient SRAVANI is her daughter who is present and living will is currently in place. Discussed CODE status at length including difference between FULL code, DNR-CCA and DNR-CC status. Following discussions about the differences in these status, requested DNR-CCA, no intubation status. Advanced Care Planning Face to Face Time: 16 minutes. Charges/Coding Visit Charges Inpatient E&M: 08489 Init Hosp L3 Procedures Hospitalists Procedures: 84932 Advncd Care Plan 30 Min
[2023-11-03] MEDS: metroNIDAZOLE 500 MG/100 ML BAG 100 MG IV ×2 (15:35→20:52)
[2023-11-03 16:04] LABS: Magnesium 2.1 mg/dL (1.6-2.6)
[2023-11-03] MEDS: 0.9% Normal Saline (1000mL) 1,000 ML 100 ML IV (18:18)
[2023-11-03] MEDS: Furosemide 40 MG Tablet PO (18:23)
[2023-11-03] MEDS: Potassium Chloride Oral Tablet 20 MEQ PO (18:23)
[2023-11-03] MEDS: Budesonide Respules 0.5 MG/2 ML AMPUL.NEB. 0.25 MG INHALATION (19:15)
[2023-11-03] MEDS: Pramipexole Di-HCl 1 MG Tablet 1.5 MG PO (20:45)
[2023-11-03] MEDS: Pantoprazole Sodium 40 MG Tablet PO (20:45)
[2023-11-03] MEDS: Mag Hydrox/Al Hydrox/Simeth 30 ML UDC PO (20:45)
[2023-11-03] MEDS: Menthol/Lanolin/Calamine/Znox 113 GM Tube 1 APPLIC TOPICAL (20:45)
[2023-11-03] MEDS: DULoxetine Hcl 30 MG Capsule PO (20:45)
[2023-11-03] MEDS: Carvedilol 12.5 MG Tablet PO (20:45)
[2023-11-03] MEDS: Heparin Injection (Vial) 5,000 UNIT/ML VIAL 5000 UNIT SC (20:46)
[2023-11-03] MEDS: Acetaminophen 325 MG Tablet 650 MG PO (20:51)
[2023-11-03] MEDS: Ondansetron 4 MG/2 ML Vial IV (23:49)
[2023-11-03] MEDS: oxyCODONE 5 MG Tablet PO (23:49)
[2023-11-03] MEDS: MELATONIN 3 MG TABLET PO (23:53)
[2023-11-04] VITALS (10 sets, daily range): BP systolic 97–128; BP diastolic 37–54; PULSE 68–86; RESP 13–24; TEMP 36.4–37.1; O2SAT 94–97; BMI 28.0
[2023-11-04] MEDS: metroNIDAZOLE 500 MG/100 ML BAG 100 MG IV ×3 (05:48→20:51)
[2023-11-04] MEDS: Acetaminophen 325 MG Tablet 650 MG PO ×2 (05:52→10:14)
[2023-11-04] MEDS: oxyCODONE 5 MG Tablet PO ×3 (05:52→18:52)
[2023-11-04 06:40] LABS: Absolute Neutrophil Count 2.1 X10^3/uL (2.0-7.7); Basophil# 0.02 X10^3/uL; Basophil% 0.5 % (0-1); Eosinophil# 0.16 X10^3/uL; Eosinophils% 4.2 % (0-5); Hematocrit 27.1 % (37-47); Hemoglobin 8.2 g/dL (12.0-15.0); Lymphocyte % 23.4 % (19-41); Mean Corp Hgb Conc 30.3 g/dL (32-36); Mean Corpuscular Hgb 30.7 pg (27.0-32.0); Mean Corpuscular Volume 101.5 fL (81-99); Mean Platelet Vol. 10.8 fl (6.2-12.0); Monocyte# 0.61 X10^3/uL; Monocyte% 15.8 % (0-10); NRBC Flagged by Analyzer 0 % (0-5); Neutrophil # 2.14 X10^3/uL (2.7-7.7); Neutrophil % 55.6 % (47-70); POSITIVE MORPHOLOGY YES; Platelet Count 180 K/mm3 (150-450); RBC Distribution Width CV 18.1 % (11.6-14.6); RBC Distribution Width SD 67.8 fl (35.1-43.9); Red Blood Count 2.67 M/mm3 (4.2-5.4); White Blood Count 3.9 K/mm3 (4.4-11.0)
[2023-11-04 06:46] LABS: Differential Indicated SCAN CRITERIA MET
[2023-11-04] MEDS: Budesonide Respules 0.5 MG/2 ML AMPUL.NEB. 0.25 MG INHALATION ×2 (06:57→19:17)
[2023-11-04 07:08] LABS: ALB/GLOB Ratio 0.8 RATIO (0.9-2.4); AST(SGOT) 23 U/L (15-37); Alanine Aminotransfer ALT/SGPT 14 U/L (13-56); Albumin, Serum 2.6 g/dL (3.2-5.0); Alkaline Phosphatase 72 U/L (45-117); Anion Gap 6 (5-15); BUN 45 mg/dL (7-18); BUN/Creat Ratio 38.1 RATIO (10-20); Chloride 104 mmol/L (98-107); Creatinine, Serum 1.18 mg/dL (0.55-1.02); EST Glomerular Filtration Rate 46 mL/min (>60); Est Glom Filt Rate - Afr Amer 56 mL/min (>60); Globulin 3.1 g/dL (2.2-4.2); Glucose 113 mg/dL (74-106); Potassium 2.9 mmol/L (3.5-5.1); Protein, Total 5.7 g/dL (6.4-8.2); Sodium Level 143 mmol/L (136-145)
[2023-11-04 07:45] LABS: Anisocytosis RARE
--- NOTE | 2023-11-04 07:47 | PN.HOSP_ITS ---
Reason for Visit Reason for Visit: Diagnoses Diverticulitis of intestine, part unspecified, without perforation or abscess w ithout bleeding (11/03/23) Subjective Subjective Still back and abdominal pain. Previously, has had diverticulitis, but was too long ago to recall her symptoms at that time. Objective Data Objective Data Vital Signs: Vital Signs Temp Pulse Resp BP Pulse Ox O2 Del Method O2 Flow Rate 37.1 C 86 20 H 109/54 L 94 Nasal Cannula 2 11/04/23 05:56 11/04/23 06:57 11/04/23 06:57 11/04/23 05:56 11/04/23 06:57 11/04/23 06:57 11/04/23 06:57 Oxygen Flow Rate (L/min) 2 Oxygen Delivery Method Nasal Cannula Weight: 69.7 kg Body Mass Index (BMI) 28.0 Intake & Output: Intake and Output for Last 24 Hours 11/02/23 11/03/23 11/04/23 23:59 23:59 23:59 Intake Total 650 / 650 1100 / 1100 Balance 650 / 650 1100 / 1100 Lab / Micro Data 11/04/23 05:37 11/04/23 05:37 Labs: Laboratory Results - last 24 hr 11/03/23 12:50: WBC 5.9, RBC 2.97 L, Hgb 9.3 L, Hct 28.9 L, MCV 97.3, MCH 31.3, MCHC 32.2, RDW Std Deviation 63.7 H, RDW Coeff of Ha 17.9 H, Plt Count 194, MPV 10.2, Immature Gran % (Auto) 0.300, Neut % (Auto) 63.5, Lymph % (Auto) 20.1, [place] % (Auto) 14.3 H, Eos % (Auto) 1.5, Baso % (Auto) 0.3, Absolute Neuts (auto) 3.7, Absolute Lymphs (auto) 1.18, Nucleated RBC % 0, Sodium 141, Potassium 2.6 L*, Chloride 99, Carbon Dioxide 36.0 H, Anion Gap 6, BUN 62 H, Creatinine 1.25 H , Estim Creat Clear Calc 28.84, Est GFR (MDRD) Af Amer 52 L, Est GFR (MDRD) Non- Af 43 L, BUN/Creatinine Ratio 49.6 H, Glucose 112 H, Calcium 8.6, Magnesium 2.1, Troponin I High Sens 17, B-Natriuretic Peptide 310.7 H 11/03/23 13:20: Urine Color Yellow, Urine Clarity Sl. Cloudy, Urine pH 7.0, Ur Specific [place] 1.005, Urine Protein Negative, Urine Glucose (UA) Normal, Urine Ketones Negative, Urine Occult Blood Negative, Urine Nitrite Negative, Urine Bilirubin Negative, Urine Urobilinogen Normal, Ur Leukocyte Esterase 100 H, Urine RBC 0 SEEN, Urine WBC 0-5 SEEN, Ur Squamous Epith Cells 0 SEEN, Urine Bacteria 2+, Urine Mucus 0 SEEN 11/04/23 05:37: WBC 3.9 L, RBC 2.67 L, Hgb 8.2 L, Hct 27.1 L, MCV 101.5 H, MCH 30.7, MCHC 30.3 L D, RDW Std Deviation 67.8 H, RDW Coeff of Ha 18.1 H, Plt Count 180, MPV 10.8, Immature Gran % (Auto) 0.500, Neut % (Auto) 55.6, Lymph % (Auto) 23.4, [place] % (Auto) 15.8 H, Eos % (Auto) 4.2, Baso % (Auto) 0.5, Absolute Neuts (auto) 2.1, Absolute Lymphs (auto) 0.90, Nucleated RBC % 0, Anisocytosis RARE, Sodium 143, Potassium 2.9 L, Chloride 104, Carbon Dioxide 33.0 H, Anion Gap 6, BUN 45 H, Creatinine 1.18 H, Estim Creat Clear Calc 31.30, Est GFR (MDRD) Af Amer 56 L, Est GFR (MDRD) Non-Af 46 L, BUN/Creatinine Ratio 38.1 H, Glucose 113 H, Calcium 8.0 L, Total Bilirubin 0.30, AST 23, ALT 14, Alkaline Phosphatase 72, Total Protein 5.7 L, Albumin 2.6 L, Globulin 3.1, Albumin/Globulin Ratio 0.8 L Radiography Diagnostic Testing: Radiology Impression Abdomen/Pelvis CT 11/03/23 12:56 IMPRESSION: Findings AP with a mild degree of sigmoid diverticulitis. Stable appearance of the right kidney with atrophy and mass in the upper pole. Scattered left nonobstructive intrarenal calculi. Electronically Signed: Ramos Jolley MD at 13:40 EDT , Chest X-Ray 11/03/23 14:02 IMPRESSION: Hyperinflation. Stable mild scarring at the lung bases. No acute abnormality is seen. Electronically Signed: Ramos Jolley MD at 14:38 EDT , Physical Exam Const alert and no apparent distress Resp normal respiratory effort, no retractions, no use of accessory muscles and clear to auscultation bilaterally Cardio regular rate, regular rhythm, S1 normal heart sound and S2 normal heart sound GI normal to inspection, nondistended, normoactive bowel sounds and soft to palpation GI Narrative: epigastric abdominal pain Extremity normal to inspection Assessment & Plan Assessment/Plan (1) Diverticulitis: PLAN: Plan Acute sigmoid diverticulitis * CTX and metronidazole * CLD, advance as tolerated * pain control Abnormal UA * UA has 100 leuk esterase, 0-5 WBCs. Not consistent with UTI, therefore UTI ruled out. No additional work up at this time. Hypokalemia * replace * Magnesium WNL Chronic conditions: * Chronic normocytic anemia/iron deficiency anemia: Hg 8.2. Monitor. * Chronic Kidney Disease Stage III, unclear subtype: Admission BUN/Cr 62/1.25, baseline renal function primarily 1.1-1.4, repeat BMP in AM. * HFpEF: 09/04/2023 echocardiogram with normal LV, LV systolic function normal, EF 70%, PASP 30 mmHg. Will judiciously hydrate given history, will continue patient Plavix, statin, Coreg, losartan, Lasix home regimen. * Hypertension: Continue home regimen including Coreg, Lasix, losartan, PRN hydralazine. * Hyperlipidemia: We will continue patient home statin therapy. * COPD w/ Chronic Hypoxic Respiratory Failure (2-3L NC): Will maintain on oxygen with wean as tolerated to home oxygen supplementation, continue ATC budesonide, PRN albuterol, HOB, IS parameters * PAD: We will continue patient home Plavix, statin, hypertensive regimen as noted. * History of TIA: We will continue patient Plavix, statin, hypertensive regimen as noted. * Chronic bilateral lower extremity lymphedema/edema: Will place neck Fernando wraps. * Restless leg syndrome: Will continue patient on pramipexole regimen. * GERD: We will continue patient on PPI. DVT prophylaxis: Heparin. CODE status: DNR-CCA and DNR-CC status. Disposition: To be determined. Depending on the patient's response, see if diet can be advanced. Charges/Coding Visit Charges Inpatient E&M: 65543 Subs Hosp L2
[2023-11-04] MEDS: Furosemide 40 MG Tablet PO ×2 (08:54→17:14)
[2023-11-04] MEDS: DULoxetine Hcl 30 MG Capsule PO ×2 (08:54→20:51)
[2023-11-04] MEDS: Clopidogrel Bisulfate 75 MG Tablet PO (08:54)
[2023-11-04] MEDS: Pantoprazole Sodium 40 MG Tablet PO ×2 (08:54→20:51)
[2023-11-04] MEDS: Ascorbic Acid 500 MG Tablet PO (08:54)
[2023-11-04] MEDS: Heparin Injection (Vial) 5,000 UNIT/ML VIAL 5000 UNIT SC ×2 (08:55→20:51)
[2023-11-04] MEDS: Potassium Chloride Oral Tablet 20 MEQ 60 MEQ PO (08:55)
[2023-11-04] MEDS: Iron Polysaccharide Complex 150 MG CAPSULE PO (08:55)
[2023-11-04] MEDS: Potassium Chloride Oral Tablet 20 MEQ PO ×2 (08:55→17:14)
[2023-11-04] MEDS: Ceftriaxone 1 GM/50 ML BAG IV (09:01)
[2023-11-04] MEDS: 0.9% Saline Lock 10 ML Syringe IV (13:36)
--- NOTE | 2023-11-04 15:45 | CASEMGMT ---
DEVANG KELLER chart review: Patient was admitted 10/02-10/04 for nosocomial pneumonia, acute on chronic hypoxia. Patient was discharge to TCU and then to home with [facility]. Patient returned to [facility] ED on 11/03/23 with complaint of SOB. Patient was admitted for diverticulitis, UTI, and hypokalemia. DEVANG CM in to discuss needs at discharge. Patient states she was taking medications as prescribed. [facility] had been seeing patient routinely. Patient attended follow-up appt with PCP. Patient is active with [facility]. Patient did well with therapy. Patient wishes to return home with resumption of [facility]. Patient has home oxygen through [employer] and has portable tank to return home. CM will continue to follow this patient and plan for a safe discharge.
[2023-11-04] MEDS: Pramipexole Di-HCl 1 MG Tablet 1.5 MG PO (20:50)
[2023-11-04] MEDS: Carvedilol 12.5 MG Tablet PO (20:51)
[2023-11-04] MEDS: Menthol/Lanolin/Calamine/Znox 113 GM Tube 1 APPLIC TOPICAL (20:59)
[2023-11-05] VITALS (8 sets, daily range): BP systolic 102–136; BP diastolic 41–48; PULSE 67–91; RESP 14–20; TEMP 36.6–36.8; O2SAT 94–98; BMI 28.4
[2023-11-05] MEDS: Acetaminophen 325 MG Tablet 650 MG PO ×3 (01:30→22:25)
[2023-11-05] MEDS: oxyCODONE 5 MG Tablet PO ×4 (01:30→22:25)
[2023-11-05] MEDS: Ensure Clear 120 ML Liquid PO ×2 (01:58→08:54)
[2023-11-05] MEDS: metroNIDAZOLE 500 MG/100 ML BAG 100 MG IV ×3 (05:26→22:27)
--- NOTE | 2023-11-05 07:30 | PCM.PN.HOSP ---
Reason for Visit Reason for Visit: Diagnoses Diverticulitis of intestine, part unspecified, without perforation or abscess without bleeding (11/03/23) Subjective Subjective Patient with no acute events overnight per self and per nursing report. She notes that she has tolerated clears and her abdominal pain has improved however she still has some mild discomfort rated 2-3 out of 10 in severity more cramping in nature. She denies any marked diarrhea. Patient is amenable to transitioning to full liquids and potentially cardiac diet if improving and tolerating. Patient understands need to continue PT and OT assessments to assure that she is appropriate for discharge to home versus return to skilled. If she is too weak she is amenable to return to skilled short-term. Patient denies fevers, chills, nausea, emesis, abdominal pain, chest pain or dyspnea. Objective Data Objective Data Vital Signs: Vital Signs Temp Pulse Resp BP Pulse Ox O2 Del Method O2 Flow Rate 97.8 F 70 18 127/47 H 97 Nasal Cannula 4 11/05/23 03:00 11/05/23 03:00 11/05/23 03:00 11/05/23 03:00 11/05/23 03:00 11/05/23 03:00 11/05/23 03:00 Oxygen Flow Rate (L/min) 4 Oxygen Delivery Method Nasal Cannula Weight: 155 lb 4.8 oz Body Mass Index (BMI) 28.4 Intake & Output: Intake and Output for Last 24 Hours 11/03/23 11/04/23 11/05/23 23:59 23:59 23:59 Intake Total 650 / 650 1370 / 1620 450 / 450 Output Total 850 / 850 Balance 650 / 650 520 / 770 450 / 450 Lab / Micro Data 11/05/23 07:30 11/05/23 07:30 Labs: Laboratory Results - last 24 hr 11/04/23 05:37: Anisocytosis RARE Physical Exam Narrative Physical Examination: General: Awake, alert, oriented x 3 and cooperative, seated upright in the MS bed, fatigued, notes pain improved but still present 2-3 out of 10 in severity. Skin: Normal color, normal turgor, no icterus, no cyanosis except for notable bilateral lower extremity venous stasis skin changes, occasional abrasion. HEENT: AT/NC, EOMI, PERRLA, MMM. Lungs: Diminished, greater bases, improved effort, no rales, ronchi or wheezing. Heart: Regular rate and rhythm; no gallop, rub audible. Abdomen: Soft, overweight, still some mild generalized abdominal discomfort and more pronounced left lower quadrant but less than then day prior, still mildly distended and tympanitic but less than previous, more normalized BS. Extremities: No cyanosis, no clubbing, chronic edema still present but mildly improved with compression. Neurological: Patient awake, alert, oriented as noted, cognitive function intact; pupils equally reactive to light and accommodation, cranial nerves grossly normal, moving all 4 extremities, no focal deficits, strength improved, moderately to severely global decreased. Psychiatric: Affect appears more interactive, less fatigued, no acute evidence of depressive or anxiety feelings. 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-3L NC), Hx TIA, Chronic BL LE edema, RLS, PAD, recent discharge from TCU following admission for respiratory failure secondary to post-COVID, Acute HFpEF who now re-presents to the [facility] ED on 11/03/23 with history of persistent bilateral flank discomfort, abdominal cramping diffusely as well as diarrhea in addition to ongoing bilateral lower extremity swelling and shortness of breath more pronounced on day of presentation with flank pain described as aching and worsened by activity rated 8-10 out of 10 in severity with recent discharge from transitional care 10/15/2023 with reported urinary urgency which is her baseline with no recent weight gain with PCP prescription for tizanidine for concern of muscle spasms with doses the evening prior as well as at 2 AM and 4 AM without relief recently taken off of oxycodone from palliative care secondary to nausea with history of previous kidney stones but given ongoing discomfort prompted ED evaluation. #1. Acute Diverticulitis: Admitted to [place], maintained on judicious hydration, monitor I&Os, treating with rocephin and flagyl regimen as initiated in the ED, anti-emetics, pain regimen PRN. Given toleration of clear liquids will transition to full liquids and if this is tolerated well for breakfast we will transition to cardiac diet for lunch. Once tolerating diet may consider discharge. PT/OT/CM consulted as may require SNF return instead of home. #2. Questionable Acute Urinary Tract Infection: UA upon ED evaluation minimally remarkable, pending UCx, monitor I/Os, continue IV Rocephin w/ transition as able pending sensitivities and speciation. #3. Hypokalemia: Admission K+ 2.6, magnesium level 2.1, supplementation given, 11/05/23 K 3.9. #4. Chronic normocytic anemia/iron deficiency anemia: Admission hemoglobin 9.3, MCV 97.3, baseline hemoglobin primarily more recently 8-9, continue iron supplementation. 11/05/23 CBC w/ Hgb 8.5, MCV 104. #5. BL Flank discomfort w/ History nephrolithiasis, noted nonobstructive calculi, possible UTI as noted but more suspicious for musculoskeletal etiology: CT abdomen and pelvis with noted nephrolithiasis but not marked appearing and no evidence of any obstructive process, again patient flank discomfort reproducible and more consistent with musculoskeletal etiology. Continue lidocaine patches, offloading, PT/OT. #6. Chronic Kidney Disease Stage III, unclear subtype: Admission BUN/Cr 62/1.25, baseline renal function primarily 1.1-1.4, 11/05/23 BUN/Cr 34/1.24, GFR 44. #7. HFpEF: 09/04/2023 echocardiogram with normal LV, LV systolic function normal, EF 70%, PASP 30 mmHg. Judiciously hydrating given history, will continue patient Plavix, statin, Coreg, losartan, Lasix home regimen. #8. Hypertension: Continue home regimen including Coreg, Lasix, losartan, PRN hydralazine. #9. Hyperlipidemia: We will continue patient home statin therapy. #10. 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 #11. PAD: We will continue patient home Plavix, statin, hypertensive regimen as noted. #12. History of TIA: We will continue patient Plavix, statin, hypertensive regimen as noted. #13. Chronic bilateral lower extremity lymphedema/edema: Will place neck Fernando wraps. #14. Restless leg syndrome: Will continue patient on pramipexole regimen. #15. GERD: We will continue patient on PPI. #16. DVT prophylaxis: Heparin. #17. CODE status: Patient SRAVANI is her daughter who is present and living will is currently in place. DNR-CCA, no intubation status. Charges/Coding Visit Charges Inpatient E&M: 31794 Init Hosp L2
[2023-11-05] MEDS: Budesonide Respules 0.5 MG/2 ML AMPUL.NEB. 0.25 MG INHALATION ×2 (07:32→19:45)
[2023-11-05 07:54] LABS: Absolute Neutrophil Count 2.3 X10^3/uL (2.0-7.7); Basophil# 0.02 X10^3/uL; Basophil% 0.5 % (0-1); Eosinophil# 0.29 X10^3/uL; Eosinophils% 6.9 % (0-5); Hematocrit 28.4 % (37-47); Hemoglobin 8.5 g/dL (12.0-15.0); Lymphocyte % 23.9 % (19-41); Mean Corp Hgb Conc 29.9 g/dL (32-36); Mean Corpuscular Hgb 31.1 pg (27.0-32.0); Mean Platelet Vol. 10.1 fl (6.2-12.0); Monocyte% 14.3 % (0-10); NRBC Flagged by Analyzer 0 % (0-5); Neutrophil # 2.26 X10^3/uL (2.7-7.7); Neutrophil % 53.9 % (47-70); POSITIVE MORPHOLOGY YES; Platelet Count 168 K/mm3 (150-450); RBC Distribution Width CV 17.9 % (11.6-14.6); RBC Distribution Width SD 68.4 fl (35.1-43.9); Red Blood Count 2.73 M/mm3 (4.2-5.4); White Blood Count 4.2 K/mm3 (4.4-11.0)
[2023-11-05 08:12] LABS: Differential Indicated SCAN CRITERIA MET
[2023-11-05 08:25] LABS: ALB/GLOB Ratio 0.8 RATIO (0.9-2.4); AST(SGOT) 20 U/L (15-37); Alanine Aminotransfer ALT/SGPT 15 U/L (13-56); Albumin, Serum 2.7 g/dL (3.2-5.0); Alkaline Phosphatase 73 U/L (45-117); Anion Gap 2 (5-15); BUN 34 mg/dL (7-18); BUN/Creat Ratio 27.4 RATIO (10-20); Calcium,Total 8.2 mg/dL (8.5-10.1); Chloride 105 mmol/L (98-107); Creatinine, Serum 1.24 mg/dL (0.55-1.02); EST Glomerular Filtration Rate 44 mL/min (>60); Est Glom Filt Rate - Afr Amer 53 mL/min (>60); Estimated Creatinine Clearance 29.94 ml/min; Globulin 3.2 g/dL (2.2-4.2); Glucose 99 mg/dL (74-106); Potassium 3.9 mmol/L (3.5-5.1); Protein, Total 5.9 g/dL (6.4-8.2); Sodium Level 140 mmol/L (136-145)
[2023-11-05] MEDS: Furosemide 40 MG Tablet PO ×2 (08:51→17:34)
[2023-11-05] MEDS: Pantoprazole Sodium 40 MG Tablet PO ×2 (08:51→22:26)
[2023-11-05] MEDS: Potassium Chloride Oral Tablet 20 MEQ PO ×2 (08:51→17:35)
[2023-11-05] MEDS: Clopidogrel Bisulfate 75 MG Tablet PO (08:51)
[2023-11-05] MEDS: Ascorbic Acid 500 MG Tablet PO (08:52)
[2023-11-05] MEDS: Iron Polysaccharide Complex 150 MG CAPSULE PO (08:52)
[2023-11-05] MEDS: DULoxetine Hcl 30 MG Capsule PO ×2 (08:52→22:25)
[2023-11-05] MEDS: Menthol/Lanolin/Calamine/Znox 113 GM Tube 1 APPLIC TOPICAL ×2 (08:54→15:04)
[2023-11-05] MEDS: Heparin Injection (Vial) 5,000 UNIT/ML VIAL 5000 UNIT SC ×2 (08:55→22:26)
[2023-11-05] MEDS: Ceftriaxone 1 GM/50 ML BAG IV (09:02)
[2023-11-05 10:21] LABS: Anisocytosis 2+; Differential Comment SCANNED; Macrocytosis 1+; Microcytosis 1+
[2023-11-05] MEDS: Carvedilol 12.5 MG Tablet PO (11:43)
[2023-11-05] MEDS: MELATONIN 3 MG TABLET PO (22:25)
[2023-11-05] MEDS: Pramipexole Di-HCl 1 MG Tablet 1.5 MG PO (22:25)
[2023-11-06 04:31] VITALS: BP 130/69; PULSE 82; RESP 18; TEMP 36.7; O2SAT 95
[2023-11-06] MEDS: Acetaminophen 325 MG Tablet 650 MG PO (04:56)
[2023-11-06] MEDS: metroNIDAZOLE 500 MG/100 ML BAG 100 MG IV ×2 (04:56→13:24)
[2023-11-06 04:58] VITALS: BMI 28.5
[2023-11-06 06:01] LABS: Absolute Lymphocyte Count 1.17 X10^3/uL (0.83-4.51); Absolute Neutrophil Count 2.3 X10^3/uL (2.0-7.7); Basophil# 0.02 X10^3/uL; Basophil% 0.4 % (0-1); Eosinophil# 0.27 X10^3/uL; Hematocrit 27.9 % (37-47); Hemoglobin 8.3 g/dL (12.0-15.0); Lymphocyte # 1.17 X10^3/ul (0.83-4.51); Lymphocyte % 26.1 % (19-41); Mean Corp Hgb Conc 29.7 g/dL (32-36); Mean Corpuscular Hgb 31.2 pg (27.0-32.0); Mean Corpuscular Volume 104.9 fL (81-99); Mean Platelet Vol. 10.6 fl (6.2-12.0); Monocyte# 0.73 X10^3/uL; Monocyte% 16.3 % (0-10); NRBC Flagged by Analyzer 0 % (0-5); Neutrophil # 2.25 X10^3/uL (2.7-7.7); Neutrophil % 50.3 % (47-70); POSITIVE MORPHOLOGY YES; Platelet Count 166 K/mm3 (150-450); RBC Distribution Width CV 17.8 % (11.6-14.6); RBC Distribution Width SD 68.8 fl (35.1-43.9); Red Blood Count 2.66 M/mm3 (4.2-5.4); White Blood Count 4.5 K/mm3 (4.4-11.0)
[2023-11-06 06:23] LABS: ALB/GLOB Ratio 0.8 RATIO (0.9-2.4); AST(SGOT) 24 U/L (15-37); Alanine Aminotransfer ALT/SGPT 15 U/L (13-56); Albumin, Serum 2.4 g/dL (3.2-5.0); Alkaline Phosphatase 73 U/L (45-117); Anion Gap 4 (5-15); BUN 27 mg/dL (7-18); BUN/Creat Ratio 23.5 RATIO (10-20); Calcium,Total 8.1 mg/dL (8.5-10.1); Chloride 105 mmol/L (98-107); Creatinine, Serum 1.15 mg/dL (0.55-1.02); EST Glomerular Filtration Rate 48 mL/min (>60); Est Glom Filt Rate - Afr Amer 58 mL/min (>60); Estimated Creatinine Clearance 32.36 ml/min; Globulin 3.2 g/dL (2.2-4.2); Glucose 103 mg/dL (74-106); Potassium 3.8 mmol/L (3.5-5.1); Protein, Total 5.6 g/dL (6.4-8.2); Sodium Level 140 mmol/L (136-145)
[2023-11-06 06:27] LABS: Differential Indicated SCAN CRITERIA MET
[2023-11-06 07:02] VITALS: PULSE 68; RESP 16; O2SAT 95
[2023-11-06] MEDS: Budesonide Respules 0.5 MG/2 ML AMPUL.NEB. 0.25 MG INHALATION (07:02)
--- NOTE | 2023-11-06 07:12 | PCM.PN.HOSP ---
Reason for Visit Reason for Visit: Diagnoses Diverticulitis of intestine, part unspecified, without perforation or abscess without bleeding (11/03/23) Subjective Subjective Patient with no acute events overnight per self or per nursing report. Patient did well with physical and Occupational Therapy however she does report still when she is getting up discomfort to bilateral flanks which again is reproducible with palpation. Discussed options and at this time she is amenable to placement of topical pain compounded regimen. Discussed plan of care to place this and see how she does getting up and moving but at this time she would be appropriate to discharge to home as she is tolerating a diet and could be transition also to oral antibiotics for diverticulitis. She denies any ongoing abdominal pain, diarrhea, nausea or emesis. Patient denies fevers, chills, chest pain or dyspnea. Objective Data Objective Data Vital Signs: Vital Signs Temp Pulse Resp BP Pulse Ox O2 Del Method O2 Flow Rate 98.1 F 82 18 130/69 H 95 Nasal Cannula 4 11/06/23 04:31 11/06/23 04:31 11/06/23 04:31 11/06/23 04:31 11/06/23 04:31 11/06/23 04:31 11/06/23 04:31 Oxygen Flow Rate (L/min) 4 Oxygen Delivery Method Nasal Cannula Weight: 156 lb 1.396 oz Body Mass Index (BMI) 28.5 Intake & Output: Intake and Output for Last 24 Hours 11/04/23 11/05/23 11/06/23 23:59 23:59 23:59 Intake Total 1370 / 1620 1870 / 1870 100 / 100 Output Total 850 / 850 Balance 520 / 770 1870 / 1870 100 / 100 Lab / Micro Data 11/06/23 05:19 11/06/23 05:19 Labs: Laboratory Results - last 24 hr 11/05/23 07:30: WBC 4.2 L, RBC 2.73 L, Hgb 8.5 L, Hct 28.4 L, MCV 104.0 H, MCH 31.1, MCHC 29.9 L, RDW Std Deviation 68.4 H, RDW Coeff of Ha 17.9 H, Plt Count 168, MPV 10.1, Immature Gran % (Auto) 0.500, Neut % (Auto) 53.9, Lymph % (Auto) 23.9, Meriwether % (Auto) 14.3 H, Eos % (Auto) 6.9 H, Baso % (Auto) 0.5, Absolute Neuts (auto) 2.3, Absolute Lymphs (auto) 1.00, Nucleated RBC % 0, Differential Comment SCANNED, Anisocytosis 2+, Microcytosis 1+, Macrocytosis 1+, Sodium 140, Potassium 3.9, Chloride 105, Carbon Dioxide 33.0 H, Anion Gap 2 L, BUN 34 H, Creatinine 1.24 H, Estim Creat Clear Calc 29.94, Est GFR (MDRD) Af Amer 53 L, Est GFR (MDRD) Non-Af 44 L, BUN/Creatinine Ratio 27.4 H, Glucose 99, Calcium 8.2 L, Total Bilirubin 0.30, AST 20, ALT 15, Alkaline Phosphatase 73, Total Protein 5.9 L, Albumin 2.7 L, Globulin 3.2, Albumin/Globulin Ratio 0.8 L 11/06/23 05:19: WBC 4.5, RBC 2.66 L, Hgb 8.3 L, Hct 27.9 L, MCV 104.9 H, MCH 31.2, MCHC 29.7 L, RDW Std Deviation 68.8 H, RDW Coeff of Ha 17.8 H, Plt Count 166, MPV 10.6, Immature Gran % (Auto) 0.900, Neut % (Auto) 50.3, Lymph % (Auto) 26.1, Meriwether % (Auto) 16.3 H, Eos % (Auto) 6.0 H, Baso % (Auto) 0.4, Absolute Neuts (auto) 2.3, Absolute Lymphs (auto) 1.17, Nucleated RBC % 0, Sodium 140, Potassium 3.8, Chloride 105, Carbon Dioxide 31.0, Anion Gap 4 L, BUN 27 H, Creatinine 1.15 H, Estim Creat Clear Calc 32.36, Est GFR (MDRD) Af Amer 58 L, Est GFR (MDRD) Non-Af 48 L, BUN/Creatinine Ratio 23.5 H, Glucose 103, Calcium 8.1 L, Total Bilirubin 0.20, AST 24, ALT 15, Alkaline Phosphatase 73, Total Protein 5.6 L, Albumin 2.4 L, Globulin 3.2, Albumin/Globulin Ratio 0.8 L Physical Exam Narrative Physical Examination: General: Awake, alert, oriented x 3 and cooperative, seated upright in the [place] bed, just finished breakfast but did not eat much and she notes is because the breakfast did not taste very good and the biscuit was dry but denies any abdominal pain or nausea or emesis. Skin: Normal color, normal turgor, no icterus, no cyanosis except for notable bilateral lower extremity venous stasis skin changes, occasional abrasion. HEENT: AT/NC, EOMI, PERRLA, MMM. Lungs: Diminished, greater bases, improved effort, no rales, ronchi or wheezing. Heart: Regular rate and rhythm; no gallop, rub audible. Abdomen: Soft, overweight, nontender to palpation, no rebound or guarding, no marked distention, less tympanitic, normalizing bowel sounds. Extremities: No cyanosis, no clubbing, chronic edema mildly improved with compression. Neurological: Patient awake, alert, oriented as noted, cognitive function intact; pupils equally reactive to light and accommodation, cranial nerves grossly normal, moving all 4 extremities, no focal deficits, strength improved, moderately globally decreased. Psychiatric: Affect appears more interactive, normal, no acute evidence of depressive or anxiety feelings. 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-3L NC), Hx TIA, Chronic BL LE edema, RLS, PAD, recent discharge from TCU following admission for respiratory failure secondary to post-COVID, Acute HFpEF who now re-presents to the [facility] ED on 11/03/23 with history of persistent bilateral flank discomfort, abdominal cramping diffusely as well as diarrhea in addition to ongoing bilateral lower extremity swelling and shortness of breath more pronounced on day of presentation with flank pain described as aching and worsened by activity rated 8-10 out of 10 in severity with recent discharge from transitional care 10/15/2023 with reported urinary urgency which is her baseline with no recent weight gain with PCP prescription for tizanidine for concern of muscle spasms with doses the evening prior as well as at 2 AM and 4 AM without relief recently taken off of oxycodone from palliative care secondary to nausea with history of previous kidney stones but given ongoing discomfort prompted ED evaluation. #1. Acute Diverticulitis: Admitted to [place], maintained on judicious hydration, monitor I&Os, treating with rocephin and flagyl regimen as initiated in the ED, anti-emetics, pain regimen PRN. 11/05/2023 given toleration of clear liquids transitioned to full liquids for lunch and eventually through the day transition to cardiac diet. 11/06/2023 patient denies any abdominal pain nor any nausea or emesis and tolerating complete transition of diet. PT/OT/CM consulted and currently plan for discharge to home however attempting to assist with bilateral flank musculoskeletal discomfort. Trialing compounded arthritic cream and once assess if this helps we will plan discharge to home on oral Augmentin with follow-up with general surgery as patient has had several bouts of diverticulitis. #2. Questionable Acute Urinary Tract Infection, UCx pending upon discharge, Low suspicion: UA upon ED evaluation minimally remarkable, pending UCx, continued given #1 on IV Rocephin. Pending sensitivities and speciation. #3. Hypokalemia: Admission K+ 2.6, magnesium level 2.1, supplementation given, 11/06/2023 potassium 3.8, stable. #4. Chronic normocytic anemia/iron deficiency anemia: Admission hemoglobin 9.3, MCV 97.3, baseline hemoglobin primarily more recently 8-9, continue iron supplementation. 11/05/23 CBC w/ Hgb 8.5, MCV 104--> 11/06/2023 hemoglobin 8.3, MCV 104.9. #5. BL Flank discomfort w/ History nephrolithiasis, noted nonobstructive calculi, low suspicion UTI, highly suspected musculoskeletal discomfort is reproducible with palpation alone: CT abdomen and pelvis with noted nephrolithiasis but not marked appearing and no evidence of any obstructive process, again patient flank discomfort reproducible and more consistent with musculoskeletal etiology. Had been initiated on lidocaine patches, offloading, PT/OT but given ongoing 11/06/2023 despite being somewhat improved we will trial compounded arthritic cream and if this seems to help would plan discharge to home with his agent. #6. Chronic Kidney Disease Stage III, unclear subtype: Admission BUN/Cr 62/1.25, baseline renal function primarily 1.1-1.4, 11/05/23 BUN/Cr 34/1.24, GFR 44-->11/06/2023 BUN/creatinine 27/1.15, GFR 48. #7. HFpEF: 09/04/2023 echocardiogram with normal LV, LV systolic function normal, EF 70%, PASP 30 mmHg. Judiciously hydrating given history, will continue patient Plavix, statin, Coreg, losartan, Lasix home regimen. #8. Hypertension: Continue home regimen including Coreg, Lasix, losartan, PRN hydralazine. #9. Hyperlipidemia: We will continue patient home statin therapy. #10. 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 #11. PAD: We will continue patient home Plavix, statin, hypertensive regimen as noted. #12. History of TIA: We will continue patient Plavix, statin, hypertensive regimen as noted. #13. Chronic bilateral lower extremity lymphedema/edema: Will place neck Fernando wraps. #14. Restless leg syndrome: Will continue patient on pramipexole regimen. #15. GERD: We will continue patient on PPI. #16. DVT prophylaxis: Heparin. #17. CODE status: Patient SRAVANI is her daughter who is present and living will is currently in place. DNR-CCA, no intubation status. Charges/Coding Visit Charges Inpatient E&M: 28491 Subs Hosp L2
[2023-11-06] MEDS: oxyCODONE 5 MG Tablet PO (08:26)
[2023-11-06] MEDS: Iron Polysaccharide Complex 150 MG CAPSULE PO (08:26)
[2023-11-06] MEDS: DULoxetine Hcl 30 MG Capsule PO (08:27)
[2023-11-06] MEDS: Pantoprazole Sodium 40 MG Tablet PO (08:27)
[2023-11-06] MEDS: Furosemide 40 MG Tablet PO (08:28)
[2023-11-06] MEDS: Clopidogrel Bisulfate 75 MG Tablet PO (08:28)
[2023-11-06] MEDS: Ascorbic Acid 500 MG Tablet PO (08:28)
[2023-11-06] MEDS: Potassium Chloride Oral Tablet 20 MEQ PO (08:29)
[2023-11-06 08:55] VITALS: O2SAT 92
[2023-11-06] MEDS: Ceftriaxone 1 GM/50 ML BAG IV (10:06)
[2023-11-06] MEDS: 0.9% Saline Lock 10 ML Syringe IV (10:06)
[2023-11-06 10:14] VITALS: BP 118/56; PULSE 79; RESP 16; TEMP 36.7; O2SAT 97
[2023-11-06] MEDS: Heparin Injection (Vial) 5,000 UNIT/ML VIAL 5000 UNIT SC (10:14)
[2023-11-06 11:01] LABS: Anisocytosis 2+; Differential Comment SCANNED; Macrocytosis 1+; Microcytosis 1+
[2023-11-06] MEDS: Arthritis Pain Compound 60 CLICK TUBE TOPICAL (11:07)
--- NOTE | 2023-11-06 11:25 | DS.PCM_ITS ---
Providers Date of Admission: 11/03/23 Date of Discharge: 11/06/23 Primary Care Physician: Dr. Anu Mortensen MD Reason For Visit: DIVERTICULITIS, ? UTI, HYPOKALEMIA Diagnosis Discharge Diagnosis (1) Diverticulitis: Status: Acute Code(s): K57.92 - Diverticulitis of intestine, part unspecified, without perforation or abscess without bleeding Plan: DISCHARGE DIAGNOSES: #1. Acute Diverticulitis #2. Questionable Acute Urinary Tract Infection, UCx pending upon discharge, Low suspicion #3. Hypokalemia likely secondary to GI losses #4. Chronic normocytic anemia/iron deficiency anemia #5. BL Flank discomfort w/ History nephrolithiasis, noted nonobstructive calculi, low suspicion UTI, highly suspected musculoskeletal discomfort is reproducible with palpation alone #6. Chronic Kidney Disease Stage III, unclear subtype #7. HFpEF #8. Hypertension #9. Hyperlipidemia #10. 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 PAD #12. History of TIA #13. Chronic bilateral lower extremity lymphedema/edema #14. Restless leg syndrome #15. GERD #16. CODE status: Patient SRAVANI is her daughter who is present and living will is currently in place. DNR-CCA, no intubation status. Medications at Discharge Home Medications atorvastatin 40 mg tablet 40 mg PO QHS cholesterol 02/22/16 clopidogrel 75 mg tablet 75 mg PO DAILY BLOOD THINNER 02/22/16 multivitamin with folic acid 400 mcg tablet 1 tab PO DAILY supplement 02/22/16 albuterol sulfate 90 mcg/actuation aerosol inhaler 2 puff inhalation BID PRN shortness of breath or wheezing 03/16/18 cholecalciferol (vitamin D3) 25 mcg (1,000 unit) tablet 2,500 unit PO DAILY SUPPLEMENT 10/09/18 albuterol sulfate 2.5 mg/3 mL (0.083 %) solution for nebulization 2.5 mg inhalation Q4H PRN shortness of breath or wheezing 05/28/22 duloxetine 30 mg capsule,delayed release 30 mg PO BID pain 08/17/23 pramipexole 1.5 mg tablet 1.5 mg PO QHS restless leg syndrome 08/18/23 budesonide 0.5 mg/2 mL suspension for nebulization 0.25 mg inhalation BID breathing 30 days #0 mL 09/09/23 dextromethorphan-guaifenesin 30 mg-600 mg tablet extended [id number] hr (Mucinex DM) 2 tab PO BID cough 7 days #0 tabs 09/09/23 ascorbic acid (vitamin C) 500 mg tablet 500 mg PO 1000 #0 tabs 10/12/23 furosemide 40 mg tablet 40 mg PO BIDCM FLUID RETENTION 30 days #60 tabs 10/12/23 pantoprazole 40 mg tablet,delayed release 40 mg PO BID 30 days #60 tabs 10/12/23 polysaccharide iron complex 150 mg iron capsule (Ferrex) 150 mg PO DAILY 30 days #30 caps 10/12/23 potassium chloride 20 mEq tablet,extended release(part/cryst) 20 meq PO BIDCM 30 days #60 tabs 10/12/23 amoxicillin 500 mg-potassium clavulanate 125 mg tablet (Augmentin) 1 tab PO BID Renally dosed for Acute Diverticulitis 12 days #24 tabs 11/05/23 oxycodone 5 mg tablet 5 mg PO Q6H PRN PRN Pain Score 4-10 5 days #20 tabs 11/05/23 Arthritis Pain Compound 3 click topical BID 5 days ##0 11/06/23 Hospital Course Operations None Procedures EKG Summary of Care Provided Minutes Spent on Discharge: 35 Hospital Course: The patient is an 88 y/o F w/ PMHx: CKD stage III unclear subtype, HTN, HLD, HFpEF, COPD w/ Chronic Hypoxic Respiratory Failure (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), Hx TIA, Chronic BL LE edema, RLS, PAD, recent discharge from TCU following admission for respiratory failure secondary to post-COVID, Acute HFpEF who re-presented to the [facility] ED on 11/03/23 with history of persistent bilateral flank discomfort, abdominal cramping diffusely as well as diarrhea in addition to ongoing bilateral lower extremity swelling and shortness of breath more pronounced on day of presentation with flank pain described as aching and worsened by activity rated 8-10 out of 10 in severity with recent discharge from transitional care 10/15/2023 with reported urinary urgency which is her baseline with no recent weight gain with PCP prescription for tizanidine for concern of muscle spasms with doses the evening prior as well as at 2 AM and 4 AM without relief recently taken off of oxycodone from palliative care secondary to nausea with history of previous kidney stones but given ongoing discomfort prompted ED evaluation. Admitted to [facility], maintained on judicious hydration, monitor I&Os, treating with rocephin and flagyl regimen as initiated in the ED, anti-emetics, pain regimen PRN. 11/05/2023 given toleration of clear liquids transitioned to full liquids for lunch and eventually through the day transition to cardiac diet. 11/06/2023 patient denies any abdominal pain nor any nausea or emesis and tolerating complete transition of diet. UA upon presentation minimally concerning for UTI; however, to be cautious UCx sent and pending at discharge. Admission K+ 2.6, magnesium level 2.1, supplementation given, 11/06/2023 potassium 3.8, stable. Admission hemoglobin 9.3, MCV 97.3, baseline hemoglobin primarily more recently 8-9, continue iron supplementation. 11/05/23 CBC w/ Hgb 8.5, MCV 104--> 11/06/2023 hemoglobin 8.3, MCV 104.9. Admission BUN/Cr 62/1.25, baseline renal function primarily 1.1-1.4, 11/05/23 BUN/Cr 34/1.24, GFR 44-->11/06/2023 BUN/creatinine 27/1.15, GFR 48. Patient with noted BL flank and lateral musculoskeletal pain that was completely reproducible therefore low suspicion for other etiology and no concerning findings in that region on CT abdomen and pelvis. Initially patient had been initiated on lidocaine patches with PT and OT assessment. 11/06/2023 transition to arthritic compounded cream to those regions with plan to discharge to home with this short amount of 5 days approximately from the hospital. At discharge patient transitioned to oral Augmentin in addition to 5- day course of oxycodone in addition to compounded pain arthritic cream with follow-up PT/OT/CM consulted and currently plan for discharge to home however attempting to assist with bilateral flank musculoskeletal discomfort. Trialing compounded arthritic cream and once assess if this helps we will plan discharge to home on oral Augmentin with follow-up with general surgery as patient has had several bouts of diverticulitis. #2. Questionable Acute Urinary Tract Infection, UCx pending upon discharge, Low suspicion: UA upon ED evaluation minimally remarkable, pending UCx, continued given #1 on IV Rocephin. Pending sensitivities and speciation. #3. Hypokalemia: #4. Chronic normocytic anemia/iron deficiency anemia: #5. BL Flank discomfort w/ History nephrolithiasis, noted nonobstructive calculi, low suspicion UTI, highly suspected musculoskeletal discomfort is reproducible with palpation alone: CT abdomen and pelvis with noted nephrolithiasis but not marked appearing and no evidence of any obstructive process, again patient flank discomfort reproducible and more consistent with musculoskeletal etiology. Had been initiated on lidocaine patches, offloading, PT/OT but given ongoing 11/06/2023 despite being somewhat improved we will trial compounded arthritic cream and if this seems to help would plan discharge to home with his agent. #6. Chronic Kidney Disease Stage III, unclear subtype: #7. HFpEF: 09/04/2023 echocardiogram with normal LV, LV systolic function normal, EF 70%, PASP 30 mmHg. Judiciously hydrating given history, will continue patient Plavix, statin, Coreg, losartan, Lasix home regimen. #8. Hypertension: Continue home regimen including Coreg, Lasix, losartan, PRN hydralazine. #9. Hyperlipidemia: We will continue patient home statin therapy. #10. 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 #11. PAD: We will continue patient home Plavix, statin, hypertensive regimen as noted. #12. History of TIA: We will continue patient Plavix, statin, hypertensive regimen as noted. #13. Chronic bilateral lower extremity lymphedema/edema: Will place neck Fernando wraps. #14. Restless leg syndrome: Will continue patient on pramipexole regimen. #15. GERD: We will continue patient on PPI. #16. DVT prophylaxis: Heparin. #17. CODE status: Patient SRAVANI is her daughter who is present and living will is currently in place. DNR-CCA, no intubation status. Weight / BMI Weight Weight: 156 lb 1.396 oz Body Mass Index (BMI) 28.5 ABG / Lab / Microbiology Data 11/06/23 05:19 11/06/23 05:19 Laboratory: Laboratory Results - last 24 hr 11/06/23 05:19: WBC 4.5, RBC 2.66 L, Hgb 8.3 L, Hct 27.9 L, MCV 104.9 H, MCH 31.2, MCHC 29.7 L, RDW Std Deviation 68.8 H, RDW Coeff of Ha 17.8 H, Plt Count 166, MPV 10.6, Immature Gran % (Auto) 0.900, Neut % (Auto) 50.3, Lymph % (Auto) 26.1, Ross % (Auto) 16.3 H, Eos % (Auto) 6.0 H, Baso % (Auto) 0.4, Absolute Neuts (auto) 2.3, Absolute Lymphs (auto) 1.17, Nucleated RBC % 0, Differential Comment SCANNED, Anisocytosis 2+, Microcytosis 1+, Macrocytosis 1+, Sodium 140, Potassium 3.8, Chloride 105, Carbon Dioxide 31.0, Anion Gap 4 L, BUN 27 H, Creatinine 1.15 H, Estim Creat Clear Calc 32.36, Est GFR (MDRD) Af Amer 58 L, Est GFR (MDRD) Non-Af 48 L, BUN/Creatinine Ratio 23.5 H, Glucose 103, Calcium 8 .1 L, Total Bilirubin 0.20, AST 24, ALT 15, Alkaline Phosphatase 73, Total Pr otein 5.6 L, Albumin 2.4 L, Globulin 3.2, Albumin/Globulin Ratio 0.8 L D/C Instructions Discharge Diet: Low fat / Low cholesterol May resume sexual activity in: No Restrictions Weight Bearing Status: Weight bearing as tolerated Call your doctor if you observe: Shortness of breath, Chest pain, Increased pal pitations (irregular heartbeat), Calf discomfort and Uncontrolled pain Meaningful Use Info Meaningful Use Meaningful Use Diagnoses (Choose all that apply): None applicable Ischemic Stroke Statin Dosing Therapy Reference: STATIN DOSE THERAPY REFERENCE: * Patients > 75 years receive moderate or high dose statin therapy. * Patients 75 years or YOUNGER should receive HIGH intensity statin dose unless contraindicated. You will be required to document reason for non-treatment if statin daily dose does not meet guidelines. HIGH DOSE STATIN THERAPY DAILY Atorvastatin > than or = to 40 mg Rosuvastatin > than or = to 20 mg Amlodipine + Atorvastatin > than or = to 2.5/40 mg Ezetimibe + Simvastatin 10/80 mg Simvastatin 80mg Discharge Plan Admission Admit Date/Time: 11/03/23 15:32 Primary Reason for Your Visit: Acute Diverticulitis, ? UTI, Hypokalemia Attending Provider: Pema Sal Primary Care Provider: Anu Mortensen Consulting Providers: Pema Sal; Herrera Bauman Instructions Patient Instructions: Diverticulitis Dc Additional Instructions / Restrictions: DISCHARGE DIAGNOSES/INFORMATION/DATA: #1. Acute Diverticulitis: --CT abdomen and pelvis with mild degree of sigmoid diverticulitis, stable appearance of the right kidney with atrophy and mass in the upper pole, scattered left nonobstructive intrarenal calculi. --Initially allowed clears only and diet slow transitioned. --May use pain medication sparingly at discharge but if pain worsens recommend re-evaluation with your primary care or in the emergency room. --Continue oral antibiotic augmentin which has been renally dosed based on your creatinine clearance to 500 mg twice daily for 12 additional days to complete treatment. #2. Questionable Acute Urinary Tract Infection, Low suspicion: --UA upon ED evaluation minimally remarkable with low suspicion for urinary tract infection. Urine culture is pending at discharge. #3. Bilateral flank musculoskeletal discomfort: --Again low suspicion for UTI as being the etiology and given reproducible pain with palpation along the muscles high suspicion that the etiology is purely muscle discomfort. Upon discharge you have been given a compounded cream that is for arthritis from the hospital. Please use this on the sore regions on your back twice daily. This should last for approximately 5 days. If this does seem to continue to improve the discomfort then please discuss a refill with your primary care physician which should be sent to the [facility] outpatient pharmacy as this is a compounded agent and likely will not be able to be obtained elsewhere. --Your renal function makes taking anti-inflammatory agents, i.e. ibuprofen and naproxen less desirable as this may worsen your renal function. You may take OTC tylenol as recommended on the bottle for discomfort as well. Discharge Orders/Prescriptions Prescriptions: New amoxicillin-pot clavulanate [Augmentin] 500-125 mg tablet 1 tab PO BID 12 Days Qty: 24 0RF oxycodone 5 mg Tablet 5 mg PO Q6H PRN PRN (Reason: Pain Score 4-10) 5 Days Qty: 20 0RF Arthritis Pain Compound 3 click topical BID 5 Days Qty: 0 0RF Rx Instructions: Please use the compounded cream ordered in the hospital. If this assists greatly you may ask PCP at follow-up to request refill from [facility] where it is compounded. Continued cholecalciferol (vitamin D3) 1,000 unit tablet 2,500 unit PO DAILY albuterol sulfate 2.5 mg /3 mL (0.083 %) solution for nebulization 2.5 mg inhalation Q4H PRN (Reason: shortness of breath or wheezing) duloxetine 30 mg capsule,delayed release(DR/EC) 30 mg PO BID atorvastatin 40 MG tablet 40 mg PO QHS clopidogrel 75 MG tablet 75 mg PO DAILY multivitamin with folic acid 1 TABLET tablet 1 tab PO DAILY albuterol sulfate 90 mcg/actuation HFA aerosol inhaler 2 puff INHALATION BID PRN (Reason: shortness of breath or wheezing) Hold Instructions: Order Changed pramipexole 1.5 mg tablet 1.5 mg PO QHS Mucinex DM 30-600 mg Tablet Extended Release 12 Hr 2 tab PO BID 7 Days Qty: 0 0RF budesonide 0.5 mg/2 mL suspension for nebulization 0.25 mg inhalation BID 30 Days Qty: 0 0RF polysaccharide iron complex [Ferrex 150] 150 mg iron Capsule 150 mg PO DAILY 30 Days Qty: 30 0RF potassium chloride 20 mEq Tablet,Er Particles/Crystals 20 meq PO BIDCM 30 Days Qty: 60 0RF ascorbic acid (vitamin C) 500 mg Tablet 500 mg PO 1000 Qty: 0 0RF pantoprazole 40 mg Tablet,Delayed Release (Dr/Ec) 40 mg PO BID 30 Days Qty: 60 0RF furosemide 40 mg tablet 40 mg PO BIDCM 30 Days Qty: 60 3RF Referrals / Follow Up: Anu Mortensen MD [Primary Care Provider] - (Please follow-up within 3-5 days to review admission.) Disposition Disposition (needs filled in before D/C Order can be placed): Home Health Service Charges/Coding Visit Charges Inpatient E&M: 49533 Disch Hosp >30min
[2023-11-06 13:10] VITALS: BP 124/49; PULSE 78; RESP 16; TEMP 36.6; O2SAT 97
[2023-11-06 13:22] VITALS: O2SAT 94; O2SAT 97
== END 2023-11-06 14:42 | disposition home health service (06) | DRG 392 ==
LOC: ED 15:37 → PCU 17:15
PROVIDERS: Admitting Provider Family Medicine; Emergency Provider Emergency Medicine; PCP Internal Medicine; Visit Provider Family Medicine
DX: K57.32 Diverticulitis of large intestine without perforation or abscess without bleeding (principal); J96.11 Chronic respiratory failure with hypoxia; I13.0 Hypertensive heart and chronic kidney disease with heart failure and stage 1 through stage 4 chronic kidney disease, or unspecified chronic kidney disease; I50.32 Chronic diastolic (congestive) heart failure; E11.22 Type 2 diabetes mellitus with diabetic chronic kidney disease; E11.51 Type 2 diabetes mellitus with diabetic peripheral angiopathy without gangrene; D50.9 Iron deficiency anemia, unspecified; N18.30 Chronic kidney disease, stage 3 unspecified; J44.9 Chronic obstructive pulmonary disease, unspecified; G25.81 Restless legs syndrome; E78.5 Hyperlipidemia, unspecified; K21.9 Gastro-esophageal reflux disease without esophagitis; E87.6 Hypokalemia; I89.0 Lymphedema, not elsewhere classified; N20.0 Calculus of kidney; Z66 Do not resuscitate; Z99.81 Dependence on supplemental oxygen; Z79.51 Long term (current) use of inhaled steroids; Z79.02 Long term (current) use of antithrombotics/antiplatelets; Z79.899 Other long term (current) drug therapy; Z87.891 Personal history of nicotine dependence
CPT/HCPCS: 36415; 71045; 74176; 80048; 80053; 81001; 83735; 83880; 84484; 85025; 87077; 87086; 87088; 87186; 93005; 94640; 97110; 97162; 97166; 97530; 99283; J7030; J7050; A4216; J2405

== ENCOUNTER 2023-11-14 15:10 | Outpatient (RCR) | payer MEDICARE, SELFPAY ==
[2023-11-14 15:54] LABS: Anion Gap 5 (5-15); BUN 26 mg/dL (7-18); BUN/Creat Ratio 21.1 RATIO (10-20); Calcium,Total 8.6 mg/dL (8.5-10.1); Chloride 102 mmol/L (98-107); Creatinine, Serum 1.23 mg/dL (0.55-1.02); EST Glomerular Filtration Rate 44 mL/min (>60); Est Glom Filt Rate - Afr Amer 53 mL/min (>60); Glucose 115 mg/dL (74-106); Magnesium 1.6 mg/dL (1.6-2.6); Potassium 3.9 mmol/L (3.5-5.1); Sodium Level 141 mmol/L (136-145)
[2023-11-14 15:59] LABS: PTHIN 73.5 pg/mL (18.4-80.1)
[2023-11-14 15:59] LABS: Ionized Calcium 4.84 mg/dL (4.36-5.20)
[2023-11-14 16:26] LABS: Ionized Calcium Order 4.84
== END 2023-11-15 22:20 | disposition home or self-care (01) ==
LOC: HHLAB 15:10
PROVIDERS: PCP Internal Medicine; Referring Provider Clinical Nurse Specialist; Visit Provider Clinical Nurse Specialist
DX: E83.51 Hypocalcemia (principal); E83.42 Hypomagnesemia
CPT/HCPCS: 80048; 82330; 83735; 83970

== ENCOUNTER → 2023-11-29 | Outpatient (CLI) | payer MEDICARE, SELFPAY ==
[2023-11-29 14:28] LABS: Absolute Lymphocyte Count 1.25 X10^3/uL (0.83-4.51); Absolute Neutrophil Count 5.2 X10^3/uL (2.0-7.7); Basophil# 0.02 X10^3/uL; Basophil% 0.3 % (0-1); Eosinophil# 0.18 X10^3/uL; Eosinophils% 2.4 % (0-5); Hematocrit 34.1 % (37-47); Hemoglobin 10.3 g/dL (12.0-15.0); Lymphocyte # 1.25 X10^3/ul (0.83-4.51); Mean Corp Hgb Conc 30.2 g/dL (32-36); Mean Corpuscular Volume 102.7 fL (81-99); Mean Platelet Vol. 10.7 fl (6.2-12.0); Monocyte# 0.73 X10^3/uL; Monocyte% 9.9 % (0-10); NRBC Flagged by Analyzer 0 % (0-5); Neutrophil # 5.16 X10^3/uL (2.7-7.7); Platelet Count 213 K/mm3 (150-450); RBC Distribution Width CV 15.8 % (11.6-14.6); Red Blood Count 3.32 M/mm3 (4.2-5.4); White Blood Count 7.4 K/mm3 (4.4-11.0)
[2023-11-29 14:47] LABS: Ionized Calcium 4.87 mg/dL (4.36-5.20)
[2023-11-29 15:05] LABS: ALB/GLOB Ratio 0.9 RATIO (0.9-2.4); AST(SGOT) 26 U/L (15-37); Alanine Aminotransfer ALT/SGPT 24 U/L (13-56); Albumin, Serum 3.2 g/dL (3.2-5.0); Alkaline Phosphatase 93 U/L (45-117); Anion Gap 5 (5-15); BUN 47 mg/dL (7-18); BUN/Creat Ratio 42.7 RATIO (10-20); Calcium,Total 8.9 mg/dL (8.5-10.1); Chloride 99 mmol/L (98-107); Cholesterol 141 mg/dL (200); EST Glomerular Filtration Rate 50 mL/min (>60); Est Glom Filt Rate - Afr Amer 61 mL/min (>60); Ferritin 170 ng/mL (8-252); Globulin 3.4 g/dL (2.2-4.2); Glucose 137 mg/dL (74-106); High Density Lipoprotein 38 mg/dL; Iron 60 ug/dL (50-170); Iron Binding Capacity,Total 283 ug/dL (250-450); PERCENT IRON SATURATION 21.2 % (15.0-55.0); Potassium 3.8 mmol/L (3.5-5.1); Protein, Total 6.6 g/dL (6.4-8.2); Sodium Level 135 mmol/L (136-145); Triglycerides 181 mg/dL; Very Low Density Lipoprotein 36 mg/dL (5-40)
[2023-11-29 16:08] LABS: Microalbumin,Random Urine 12.3 mg/L (NO RANGE EST.); Microalbumin:Creatinine Ratio 64.1 mg/g CRE (<30 mg/g CRE)
[2023-11-29 22:04] LABS: Ionized Calcium Order ORDER TUBE
== END | disposition home or self-care (01) ==
LOC: LABSPEC 13:53
PROVIDERS: PCP Internal Medicine; Referring Provider Internal Medicine; Visit Provider Internal Medicine
DX: E11.65 Type 2 diabetes mellitus with hyperglycemia (principal); E61.1 Iron deficiency; Z51.81 Encounter for therapeutic drug level monitoring; E83.51 Hypocalcemia; E83.42 Hypomagnesemia
CPT/HCPCS: 80053; 80061; 82043; 82330; 82570; 82728; 83540; 83550; 85025

== ENCOUNTER → 2023-12-26 | Outpatient (CLI) | payer MEDICARE, SELFPAY ==
[2023-12-26 10:52] LABS: Hematocrit 38.5 % (37-47); Hemoglobin 12.3 g/dL (12.0-15.0); Mean Corp Hgb Conc 31.9 g/dL (32-36); Mean Corpuscular Hgb 31.2 pg (27.0-32.0); Mean Corpuscular Volume 97.7 fL (81-99); Mean Platelet Vol. 10.3 fl (6.2-12.0); Platelet Count 202 K/mm3 (150-450); RBC Distribution Width CV 13.7 % (11.6-14.6); RBC Distribution Width SD 49.5 fl (35.1-43.9); Red Blood Count 3.94 M/mm3 (4.2-5.4); White Blood Count 7.6 K/mm3 (4.4-11.0)
[2023-12-26 11:56] LABS: Anion Gap 6 (5-15); BUN 69 mg/dL (7-18); BUN/Creat Ratio 53.5 RATIO (10-20); Calcium,Total 9.8 mg/dL (8.5-10.1); Chloride 105 mmol/L (98-107); Creatinine, Serum 1.29 mg/dL (0.55-1.02); EST Glomerular Filtration Rate 42 mL/min (>60); Est Glom Filt Rate - Afr Amer 50 mL/min (>60); Glucose 111 mg/dL (74-106); Magnesium 2.2 mg/dL (1.6-2.6); Potassium 3.9 mmol/L (3.5-5.1); Sodium Level 139 mmol/L (136-145)
[2023-12-26 12:35] LABS: Vitamin B12 538 pg/mL (211-911)
== END | disposition home or self-care (01) ==
LOC: LAB 08:13
PROVIDERS: PCP Internal Medicine; Visit Provider Internal Medicine
DX: N18.32 Chronic kidney disease, stage 3b (principal); D53.9 Nutritional anemia, unspecified; E83.42 Hypomagnesemia
CPT/HCPCS: 36415; 80048; 82607; 82746; 83735; 85027

== ENCOUNTER 2024-03-08 19:37 | Emergency (ER) | payer MEDICARE, SELFPAY ==
[2024-03-08 19:37] VITALS: BP 144/67; PULSE 106; RESP 16; TEMP 36.1; O2SAT 92; BMI 25.6
[2024-03-08 21:37] VITALS: RESP 16
[2024-03-08 23:00] VITALS: BP 136/62; PULSE 87; RESP 18; O2SAT 97
--- NOTE | 2024-03-08 23:00 | EDS_ITS ---
HPI History of Present Illness Chief Complaint: Other, Pain/Inj Informant: patient and family Narrative Narrative: 88-year-old female presenting to the emergency room chief complaint of choking episode. Around 1:00 she was eating wings with barbecue sauce. She states that she began to choke and had multiple gagging spells. Eventually this subsided. Patient states that she was not bringing up actual emesis but tolerating clear phlegm. She notes a similar episode about 1 month ago. She was admitted into the hospital for prolonged period earlier this year. She underwent an EGD that showed esophagitis and gastric ulcer bleeding. This was performed by Dr. Real. She has never been diagnosed as a esophageal food impaction before. She states that lately she has had difficulty swallowing some of her larger pills. She notes a history of COPD is oxygen dependent. She states over the past couple days she has had some increased shortness of breath. She notes no change in her chronic cough or phlegm production. [facility] Medical History Chronic hypoxic respiratory failure History of diabetes mellitus History of hypertension Diverticulitis History of chronic heart failure History of COPD COPD (chronic obstructive pulmonary disease) Anemia Chronic heart failure with preserved ejection fraction (HFpEF) Hyperlipidemia Right lumbar radiculopathy CKD (chronic kidney disease), stage III Hypertension Chronic kidney disease PAD (peripheral artery disease) Renal cyst History of TIA (transient ischemic attack) Bilateral carotid artery stenosis Claudication RLS (restless legs syndrome) Diverticulosis TIA (transient ischemic attack) Vertigo Leg edema Dyslipidemia Home Medications ?Medication ?Instructions ?Recorded ?Last Taken ?Type atorvastatin 40 mg tablet 40 mg PO QHS cholesterol 02/22/16 10/04/23 21:55 History clopidogrel 75 mg tablet 75 mg PO DAILY BLOOD THINNER 02/22/16 10/05/23 08:50 History multivitamin with folic acid 400 1 tab PO DAILY supplement 02/22/16 10/05/23 08:50 History mcg tablet albuterol sulfate 90 mcg/actuation 2 puff inhalation BID PRN 03/16/18 09/02/23 History aerosol inhaler shortness of breath or wheezing albuterol sulfate 2.5 mg/3 mL 2.5 mg inhalation Q4H PRN 05/28/22 10/03/23 04:30 History (0.083 %) solution for nebulization shortness of breath or wheezing pramipexole 1.5 mg tablet 1.5 mg PO QHS restless leg syndrome 08/18/23 10/04/23 21:55 History budesonide 0.5 mg/2 mL suspension 0.25 mg inhalation BID breathing 09/09/23 10/05/23 07:00 Rx for nebulization 30 days #0 mL furosemide 40 mg tablet 40 mg PO BIDCM FLUID RETENTION 30 10/12/23 Unknown Rx days #60 tabs pantoprazole 40 mg tablet,delayed 40 mg PO BID reflux 30 days #60 10/12/23 Unknown Rx release tabs polysaccharide iron complex 150 mg 150 mg PO DAILY supplement 30 days 10/12/23 Unknown Rx iron capsule (Ferrex) #30 caps potassium chloride 20 mEq 20 meq PO BIDCM supplement 30 days 10/12/23 Unknown Rx tablet,extended release(part/cryst) #60 tabs Arthritis Pain Compound 3 click topical BID 5 days ##0 11/06/23 Unknown Rx acetaminophen 500 mg tablet 1,000 mg PO Q6H PRN 02/14/24 Unknown History arformoterol 15 mcg/2 mL solution 15 mcg inhalation BID 02/14/24 Unknown History for nebulization carvedilol 25 mg tablet 25 mg PO BID 02/14/24 Unknown History dextromethorphan-guaifenesin 30 2 tab PO BID PRN cough 02/14/24 Unknown History mg-600 mg tablet extended mkapmub01 hr (Mucinex DM) duloxetine 20 mg capsule,delayed 40 mg PO DAILY 02/14/24 Unknown History release spironolactone 25 mg tablet 25 mg PO QDAY 02/14/24 Unknown History zolpidem 5 mg tablet 5 mg PO QHS PRN 02/14/24 Unknown History Allergy/AdvReac Type Severity Reaction Status Date / Time lisinopril Allergy edema Verified 03/08/24 19:38 aspirin AdvReac Upset Verified 03/08/24 19:38 Stomach Family History Mother Heart disease Surgical History History of thyroid surgery History of carotid angioplasty History of kidney stones History of basal cell carcinoma excision History of total hysterectomy Social History household members: none housing: house Smoking Status: Former smoker how long ago did patient quit smokin years ago alcohol intake: current alcohol intake frequency: holidays/special occasions only details: rare substance use type: does not use caffeine: Yes Type: coffee Number of servings: 1 ROS ROS ED Constitutional Constitutional ED: Denies chills, fever(s) or weight loss Eyes Eyes: Denies change in vision or diplopia ENT ENT ED: Denies ear pain, rhinorrhea or sore throat Cardiovascular Cardiovascular: Denies chest pain, orthopnea, palpitations or racing heartbeat Respiratory/Chest Respiratory/Chest: Reports cough and dyspnea; Denies orthopnea Gastrointestinal Gastrointestinal: Reports vomiting; Denies abdominal pain, diarrhea or nausea Genitourinary Genitourinary ED: Denies dysuria, hematuria or urinary frequency Musculoskeletal Musculoskeletal: Denies arthralgias or myalgias Integumentary Denies abscess or rash Neurologic Neurologic: Denies headache(s) or weakness Psychiatric Psychiatric: Denies anxiety, depression, suicidal ideation or suicidal thoughts Endocrine Endocrinology: Denies polydipsia, polyphagia or polyuria Allergic/Immunologic Allergic/Immunologic ED: Denies mouth swelling, tongue swelling or urticaria EXAM Physical Exam Const Vital Signs: 03/08/24 19:37 03/08/24 21:37 03/08/24 23:00 Temperature 97 F L Temperature Source Temporal Pulse Rate 106 H 87 Respiratory Rate 16 16 18 Respiratory Effort Blood Pressure 144/67 H 136/62 H Blood Pressure Mean 92 86 Pulse Ox 92 97 Oxygen Delivery Method Nasal Cannula Room Air Oxygen Flow Rate (L/min) 2 03/08/24 23:41 03/09/24 00:28 Temperature 96.9 F L Temperature Source Pulse Rate 95 Respiratory Rate 18 Respiratory Effort Normal Blood Pressure 148/60 H Blood Pressure Mean 89 Pulse Ox 97 Oxygen Delivery Method Oxygen Flow Rate (L/min) Positive well nourished and well developed General Appearance ED: well developed HEENT Reports normocephalic, head/scalp atraumatic and moist mucous membranes Eyes PERRL and EOMs intact bilaterally Neck no lymphadenopathy, supple and no JVD Resp normal respiratory effort and clear to auscultation bilaterally Cardio regular rate, regular rhythm and no murmurs GI normal to inspection, nondistended, normoactive bowel sounds and non-tender Palpation: soft Back/Spine no CVA tenderness and normal ROM Extremity normal to inspection General Extremety ED: Negative for edema General Extremity: Negative for edema Neuro oriented x3 and CN's II-XII intact bilaterally Sensorium / Orientation: alert Motor Exam: strength 5/5 throughout Psych mental status grossly normal Mood & Affect: Negative for depressed or tearful Skin no rashes or lesions noted and no wounds MDM MDM MDM Narrative Medical decision making narrative: Differential diagnosis includes aspiration COPD exacerbation pneumonia pleural effusion pneumothorax esophageal food impaction esophagitis gastritis gastric ulcer Clinically this sounds like an esophageal food bolus that has passed. My independent interpretation of the chest x-ray is no acute process. Comparison was made to the last chest x-ray available to me at this time. I reviewed the patient's EGD. No strictures were noted at time however esophagitis was. Patient is currently on Protonix. Was noted by family that she typically does not chew with her false teeth. When asked that she follow-up with GI. She may need repeat endoscopy. I am not seeing evidence of aspiration COPD exacerbation pneumonia pneumothorax or pleural effusion at this time. She has had problems with her blood sugar while being on steroids and as she is not wheezing at this time or having change in her cough/sputum, and with a history of gastric ulcer and esophagitis I am not convinced that prednisone would be of significant benefit for her and could potentially worsen her medical state. History & Record Review Discussion w/independent historian: Patient and Family Additional record(s) reviewed:: Prior inpatient record Discharge Plan Triage Chief Complaint: Other, Pain/Inj Other Complaint: Abd Pain Shortness of Breath ED Provider: Frederick Zeng Dx/Rx/DC Orders Clinical Impression: Food impaction of esophagus, COPD (chronic obstructive pulmonary disease) Instructions: ED Esophageal Foreign Body, Resolved Prescriptions: No Action albuterol sulfate 2.5 mg /3 mL (0.083 %) solution for nebulization 2.5 mg inhalation Q4H PRN (Reason: shortness of breath or wheezing) acetaminophen 500 mg tablet 1,000 mg PO Q6H PRN arformoterol 15 mcg/2 mL solution for nebulization 15 mcg inhalation BID carvedilol 25 mg tablet 25 mg PO BID duloxetine 20 mg capsule,delayed release(DR/EC) 40 mg PO DAILY spironolactone 25 mg tablet 25 mg PO QDAY zolpidem 5 mg tablet 5 mg PO QHS PRN Mucinex DM 30-600 mg tablet extended release 12 hr 2 tab PO BID PRN (Reason: cough) atorvastatin 40 MG tablet 40 mg PO QHS clopidogrel 75 MG tablet 75 mg PO DAILY multivitamin with folic acid 1 TABLET tablet 1 tab PO DAILY albuterol sulfate 90 mcg/actuation HFA aerosol inhaler 2 puff INHALATION BID PRN (Reason: shortness of breath or wheezing) pramipexole 1.5 mg tablet 1.5 mg PO QHS Arthritis Pain Compound 3 click topical BID 5 Days Qty: 0 0RF Rx Instructions: Please use the compounded cream ordered in the hospital. If this assists greatly you may ask PCP at follow-up to request refill from [facility] where it is compounded. budesonide 0.5 mg/2 mL suspension for nebulization 0.25 mg inhalation BID 30 Days Qty: 0 0RF polysaccharide iron complex [Ferrex 150] 150 mg iron Capsule 150 mg PO DAILY 30 Days Qty: 30 0RF potassium chloride 20 mEq Tablet,Er Particles/Crystals 20 meq PO BIDCM 30 Days Qty: 60 0RF pantoprazole 40 mg Tablet,Delayed Release (Dr/Ec) 40 mg PO BID 30 Days Qty: 60 0RF furosemide 40 mg tablet 40 mg PO BIDCM 30 Days Qty: 60 3RF Primary Care Provider: Rachel Salas NP Referrals: Teodoro Real DO [Med Staff - Active Staff] - As soon as possible (For GI evaluation) Rachel Salas NP, [employer] [Primary Care Provider] - As Needed Activity Restrictions/Additional Instructions: Please call Dr. Real's office to discuss this apparent food impaction that resolved. You may need a EGD for repeat evaluation. Print Language: Serbian Disposition Disposition: Home, Self Care Discharge Date/Time: 03/09/24 00:29
--- NOTE | 2024-03-08 23:25 | RAD_ITS ---
INDICATION: ASPIRATION/COPD EXAMINATION/TECHNIQUE: X-RAY - XR Chest 2 Views COMPARISON: 11/03/2023, 10/10/2023 FINDINGS: LINES/DEVICES: None. LUNGS: No consolidation. No pneumothorax. MEDIASTINUM: Unremarkable. CARDIAC SILHOUETTE: Not enlarged. BONES AND SOFT TISSUES: Multiple thoracic compression abnormalities with kyphosis, uncertain age but appear new compared to the prior chest x-ray from 10/10/2023. RAD/Chest PA and Lateral IMPRESSION: No evidence of active intrathoracic disease. Mid to lower thoracic compression fractures of uncertain age but new compared to prior study. Electronically Signed: Elsa Newell MD at 23:43 EDT ,
[2024-03-09 00:28] VITALS: BP 148/60; PULSE 95; RESP 18; TEMP 36.1; O2SAT 97
== END 2024-03-09 00:29 | disposition home or self-care (01) ==
PROVIDERS: Emergency Provider Emergency Medicine; PCP Internal Medicine; Visit Provider Emergency Medicine
DX: K22.2 Esophageal obstruction (principal); J96.11 Chronic respiratory failure with hypoxia; I13.0 Hypertensive heart and chronic kidney disease with heart failure and stage 1 through stage 4 chronic kidney disease, or unspecified chronic kidney disease; I50.32 Chronic diastolic (congestive) heart failure; J44.9 Chronic obstructive pulmonary disease, unspecified; N18.30 Chronic kidney disease, stage 3 unspecified; T18.128A Food in esophagus causing other injury, initial encounter; E78.5 Hyperlipidemia, unspecified; Z79.02 Long term (current) use of antithrombotics/antiplatelets; Z99.81 Dependence on supplemental oxygen; Z79.899 Other long term (current) drug therapy; Z87.891 Personal history of nicotine dependence; Z86.73 Personal history of transient ischemic attack (TIA), and cerebral infarction without residual deficits
CPT/HCPCS: 71046; 99284

== ENCOUNTER 2024-04-19 07:21 | Day surgery (SDC) | payer MEDICARE, SELFPAY ==
[2024-04-19] VITALS (7 sets, daily range): BP systolic 71–137; BP diastolic 28–66; PULSE 67–76; RESP 16; TEMP 36.4–36.6; O2SAT 94–99; BMI 25.4
--- NOTE | 2024-04-19 07:42 | PCM.HP.BLA ---
History and Physical Date of Admission: 04/19/24 Chief Complaint: hospital f/u Details: DICK ARTIS, is a 88 F who presents to the office today for f/u. She was hospitalized in August of 2023 for NSTEMI and COPD exacerbation. She was found to have down trending hemoglobin and underwent EGD. EGD 3.08.10; - LA Grade D erosive esophagitis with bleeding. Treated with a heater probe. - Non-bleeding gastric ulcers with no stigmata of bleeding. Biopsied. - Acute duodenitis. Biopsied OV 9.12.08 ; Patient has been doing well from GI standpoint up until recently when she had an episode of choking. She was eating a chicken wing when she stated to choke on it. She presented to the ED for this and was ultimately sent home after normal chest x-ray. After being sent home she had numerous episodes of vomiting which subsided after a few days. Since then she has had no further problems besides some break through heartburn. She continues to take Pantoprazole daily. ROS Const Constitutional: No fatigue, fever(s) or weight change ENT ENT: No difficulty swallowing Gastro GI: No abdominal pain, belching, bloating, change in bowel habits, change in stool character, coffee ground emesis, constipation, cramping, diarrhea, heartburn, difficulty swallowing, feeling full early, excessive flatus, incontinent of stools, Vomiting blood/hematemesis, Blood in stool, loose stools, Black,tarry stools, nausea/dyspepsia, pain with swallowing, vomiting or other Musc Musculoskeletal: Positive for numbness, tingling, Arthritis and restless legs; No joint pain Skin Skin: No yellowing of the eye or itchy eyes Neuro Neurology: Positive for numbness, tingling and restless legs Psych Psychiatric: No anxiety and No depression Endo Endocrine: No fatigue or weight change Aller/Imm Allergy/Immunologic: No itchy eyes Amilcar/Lymp Hematologic/Lymphatic: Positive for easy bruising; No easy bleeding Exam Const General: cooperative and comfortable Nutritional Appearance: average body habitus and well nourished [facility] Head: normal to inspection Ears: hearing grossly normal bilaterally Nose: external nose normal Face and sinus: normal facial exam Eyes General: appearance normal, both eyes and all related structures Neck Neck: normal visual inspection Chest Chest palpation & inspection: normal inspection of the chest Resp Effort & Inspection: normal respiratory effort Cardio Palpation: normal PMI GI Inspection: normal to inspection Skin General: no rashes or lesions noted Neuro General: patient alert Extrem General: normal to inspection Psych Affect: normal affect Assessment and Plan Assessment and Plan (1) Dysphagia: Status: Acute Plan: Robert is here today for f/u. She was established with [facility] while in the hospital in August of 2023. She had down trending hemoglobin and underwent EGD. Since then she has had an episode of diverticulitis but no other GI problems until recent when she choked on a chicken wing. Differential for dysphagia includes esophageal stricture, GERD, EOE or PUD. -Recommend she undergo EGD to rule out causes of dysphagia and to ensure healing of gastric ulcer. She is agreeable to this -She will continue taking PPI daily and take famotidine for breakthrough heartburn I have examined the patient and the H&P has been reviewed. There are no clinical changes since date of exam.
--- NOTE | 2024-04-19 07:45 | PCM.PRE.AN2 ---
ASA Classification* ASA Classification ASA Classification: 3 Assessment & Plan Anesthesia* Anesthesia Assessment Anesthesia Assessment: Discussed sedation and/or anesthesia options, risks, benefits, and alternatives with patient/parents/legal guardian/POA. Questions invited. The patient/parents/legal guardian/POA seems to understand and agrees to proceed with anesthesia plan. Reviewed the physical assessment, medical history, allergy history and patient home medications list prior to surgery/procedure/anesthetic and documented any changes. Performed airway and anesthesia risk assessments. Anesthesia Type Anesthesia Type: MAC Anesthesia Focused Assessment* Airway Assessment Mouth opens: >3 cm Mallampati Score: II Focused Labs Anesthesia Preop lab: CBC WBC 7.6 K/mm3 (4.4-11.0) 12/26/23 10:30 RBC 3.94 M/mm3 (4.2-5.4) L 12/26/23 10:30 Hgb 12.3 g/dL (12.0-15.0) 12/26/23 10:30 Hct 38.5 % (37-47) 12/26/23 10:30 Plt Count 202 K/mm3 (150-450) 12/26/23 10:30 CHEMISTRY Potassium 3.9 mmol/L (3.5-5.1) 12/26/23 10:30 Sodium 139 mmol/L (136-145) 12/26/23 10:30 Magnesium 2.2 mg/dL (1.6-2.6) 12/26/23 10:30 Phosphorus 2.5 mg/dL (2.5-4.9) 09/12/23 06:30 BUN 69 mg/dL (7-18) H 12/26/23 10:30 Creatinine 1.29 mg/dL (0.55-1.02) H 12/26/23 10:30 Glucose 111 mg/dL (74-106) H 12/26/23 10:30 POC Glucose 117 mg/dL (74-106) H 10/09/23 05:43 TSH 0.23 uIU/mL (0.358-3.74) L 08/19/23 05:50 COAG PT 14.6 SECONDS (11.7-14.9) 08/18/23 19:22 Pre-Assessment Diagnosis/Proposed Procedure Planned Operative Procedure(s): EGD Anesthesia History Anesthesia History - vice president regulatory: Anesthesia History - vice president regulatory Hx Hospitalization Yes: TCU IN AND OUT OVER THE 04/17/24 13:18 LAST YEAR Any Problems With Anesthesia No 04/17/24 13:18 Cholinesterase deficiency No 04/17/24 13:18 You/Your Family Experience No 04/17/24 13:18 fever (hyperthermia) with Relationship Recent Exposure to Contagious No 09/16/23 11:16 Disease Does patient have nerve No 04/17/24 13:18 stimulator Patient instructed to have device shut off --Does patient have Pacemaker or ICD? When Was Last Pacemaker Check QUESTION #4 FULL TEXT: You/Your Family Experience fever (hyperthermia) with Anesthesia Last Oral Intake Last Oral intake: Last Oral Intake NPO since Meds taken in AM with sips of water? Meds patient instructed to take am of surgery PONV PONV - vice president regulatory: PONV - vice president regulatory Female Yes 04/17/24 13:18 HX of Motion Sickness No 04/17/24 13:18 HX of N/V After Surgery No 04/17/24 13:18 Non-Smoker Yes 04/17/24 13:18 Duration of Surgery greater No 04/17/24 13:18 than 60 minutes Number of Risk Factors 2 04/17/24 13:18 PONV Score Moderate Risk 04/17/24 13:18 Height & Weight Height & Weight: Anesthesia: Height & Weight Height 5 ft 2 in 03/08/24 19:37 Respiratory Assessment Respiratory Assessment - vice president regulatory: Respiratory Tract Infection Hx - vice president regulatory Hx Respiratory Tract Infection No 04/17/24 13:18 STOP Sleep Apnea STOP Sleep Apnea - vice president regulatory: STOP Sleep Apnea - vice president regulatory Hx Hypertension Yes: CONTROLLED WITH MED 04/17/24 13:18 Hx Sleep Apnea No 04/17/24 13:18 CPAP No 11/03/23 18:31 BIPAP No 11/03/23 18:31 Do you snore loudly (louder No 04/17/24 13:18 than talking or can be heard Do you often feel tired/ No 04/17/24 13:18 fatigued/ sleepy during daytime? Has anyone observed you stop No 04/17/24 13:18 breathing during sleep? STOP Results Negative 04/17/24 13:18 QUESTION #5 FULL TEXT : Do you snore loudly (louder than talking or can be heard through closed doors)? Tobacco Use History Tobacco Use History - vice president regulatory: Tobacco Use History - vice president regulatory Tobacco Use Smoking Status Former smoker 04/17/24 13:18 Hx Tobacco Use No 04/17/24 13:18 Years Smoking Packs Smoked per Day Smoking Cessation Date was No - quit smoking greater 04/17/24 13:18 within the last 15 years than 15 years ago Hx Smoking Cessation Date 07/18/14 04/17/24 13:18 Hx Smoking Cessation No 04/17/24 13:18 Counseling Hematologic Medial History Hematologic Hx - vice president regulatory: Hematologic Medical Hx - grip Hx of Blood Transfusion Yes 04/17/24 13:18 Hx of Transfusion in last 3 No 04/17/24 13:18 Months Date of Last Transfusion (if within last 3 months) Ever experience any problems No 04/17/24 13:18 with transfusion(s)? Specify any problems Hx of Preganancy in last 3 N/A 04/17/24 13:18 Months Nurse Filling Out Transfusion NBUCHER 04/17/24 13:18 & Questions: Date: 04/17/24 04/17/24 13:18 Time: 13:20 04/17/24 13:18 Patient unable to answer at this time (ie. confused, unrespo /Reproduction History /Reproductive History - vice president regulatory: /Reproductive Hx- vice president regulatory Hx Now Gestational Age (in weeks): EDC: Hx Hx Para Hx Section SAB No 04/17/24 13:18 Active Medications Active Medications: Current Medications Generic Name Dose Route Start Last Admin Trade Name Freq PRN Reason Stop Dose Admin Lactated Ringer's 1,000 mls @ 15 mls/hr 04/19/24 07:30 IV .Q48H MUSA PFSH Medical History Wears glasses Wears dentures Rash Diabetes Arthritis Low iron Anemia High cholesterol Migraine headache Restless legs Difficulty chewing History of diverticulitis Heartburn Gastric reflux Former smoker On home oxygen therapy Shortness of breath on exertion Chronic cough History of edema History of echocardiogram History of stress test Cardiology follow-up encounter Hypertension Chronic hypoxic respiratory failure History of diabetes mellitus History of hypertension Diverticulitis History of chronic heart failure History of COPD COPD (chronic obstructive pulmonary disease) Anemia Chronic heart failure with preserved ejection fraction (HFpEF) Hyperlipidemia Right lumbar radiculopathy CKD (chronic kidney disease), stage III Hypertension Chronic kidney disease PAD (peripheral artery disease) Renal cyst History of TIA (transient ischemic attack) Bilateral carotid artery stenosis Claudication RLS (restless legs syndrome) Diverticulosis TIA (transient ischemic attack) Vertigo Leg edema Dyslipidemia Home Medications ?Medication ?Instructions ?Recorded ?Last Taken ?Type atorvastatin 40 mg tablet 40 mg PO QHS cholesterol 02/22/16 10/04/23 21:55 History clopidogrel 75 mg tablet 75 mg PO DAILY BLOOD THINNER 02/22/16 10/05/23 08:50 History albuterol sulfate 90 mcg/actuation 2 puff inhalation BID PRN 03/16/18 09/02/23 History aerosol inhaler shortness of breath or wheezing albuterol sulfate 2.5 mg/3 mL 2.5 mg inhalation Q4H PRN 05/28/22 10/03/23 04:30 History (0.083 %) solution for nebulization shortness of breath or wheezing pramipexole 1.5 mg tablet 1.5 mg PO QHS restless leg syndrome 08/18/23 10/04/23 21:55 History budesonide 0.5 mg/2 mL suspension 0.25 mg inhalation BID breathing 09/09/23 10/05/23 07:00 Rx for nebulization 30 days #0 mL furosemide 40 mg tablet 40 mg PO BIDCM FLUID RETENTION 30 10/12/23 Unknown Rx days #60 tabs pantoprazole 40 mg tablet,delayed 40 mg PO BID reflux 30 days #60 10/12/23 Unknown Rx release tabs polysaccharide iron complex 150 mg 150 mg PO DAILY supplement 30 days 10/12/23 Unknown Rx iron capsule (Ferrex) #30 caps potassium chloride 20 mEq 20 meq PO BIDCM supplement 30 days 10/12/23 Unknown Rx tablet,extended release(part/cryst) #60 tabs Arthritis Pain Compound 3 click topical BID 5 days ##0 11/06/23 Unknown Rx acetaminophen 500 mg tablet 1,000 mg PO Q6H PRN pain 02/14/24 Unknown History arformoterol 15 mcg/2 mL solution 15 mcg inhalation BID 02/14/24 Unknown History for nebulization carvedilol 25 mg tablet 25 mg PO BID 02/14/24 Unknown History dextromethorphan-guaifenesin 30 2 tab PO BID PRN cough 02/14/24 Unknown History mg-600 mg tablet extended [id number] hr (Mucinex DM) duloxetine 20 mg capsule,delayed 40 mg PO DAILY 02/14/24 Unknown History release spironolactone 25 mg tablet 25 mg PO QDAY 02/14/24 Unknown History zolpidem 5 mg tablet 5 mg PO QHS PRN sleep 02/14/24 Unknown History Allergy/AdvReac Type Severity Reaction Status Date / Time lisinopril Allergy edema Verified 04/19/24 07:44 aspirin AdvReac Upset Verified 04/19/24 07:44 Stomach Family History Mother Heart disease Surgical History History of thyroid surgery History of carotid angioplasty History of kidney stones History of basal cell carcinoma excision History of total hysterectomy Social History household members: none housing: house Smoking Status: Former smoker how long ago did patient quit smokin years ago alcohol intake: current alcohol intake frequency: holidays/special occasions only details: rare substance use type: does not use caffeine: Yes Type: coffee Number of servings: 1 Review of Systems (Anesthesia) ROS Narrative System reviewed and no additional complaints, except as documented.
[2024-04-19] MEDS: Lactated Ringers 1,000 ML 15 ML IV (07:49)
--- NOTE | 2024-04-19 08:30 | EGD_PTH ---
PATIENT: DICK ARTIS LOC: EN U#:[id number] AGE/SX: 88/F ROOM: RE04/19/[address]: Dr. Teodoro Real DO : 1935 BED: DIS: 04/19/2024 SPEC #: [id number] RECD: 04/19/24 12:28 STATUS: ANGELA MARIA ELENA #: [id number] PARTH: 04/19/24 08:[address]: Teodoro Real DEPT: SURGICAL PATHOLOGY RECD BY: Franny Rivera ENTERED: 04/19/24 12:54 SP TYPE: EGD BIOPSY OTHR DR: Rachel Salas, GAS CONTROLLERMatt Tissues: Duodenum, NOS Procedures: Surgery Specimen Level IV HEADER OPERATION: EGD, biopsy, dilatation PRE-OP DIAGNOSIS: Dysphagia TISSUE SUBMITTED: Duodenal polyp biopsy MICROSCOPIC DIAGNOSIS Duodenal polyp, biopsy: Fragments of benign mucosal polyp. 04/20/2024 MICROSCOPIC DESCRIPTION Slides are reviewed. GROSS DESCRIPTION Received in fixative is one container labeled with the patient's name and designated Duodenal polyp biopsy. The specimen consists of two irregular fragments of light figueroa soft tissue that in aggregate measure 0.8 x 0.4 x 0.1 cm. The specimen is totally submitted in one cassette. 04/19/2024 TC:5 CPT:82659
--- NOTE | 2024-04-19 09:07 | OP.EGD_ITS ---
Patient Name: Chanel Rousseau Procedure Date: 04/19/2024 8:39 AM Date of : 1935 Age: 88 Procedure: Upper GI endoscopy Indications: Epigastric abdominal pain, Dysphagia, Suspected esophageal reflux Providers: Teodoro Real DO Referring MD: Rachel Salas Curb Machine Operator, Curb Machine Operator-c Medicines: Monitored Anesthesia Care Patient Profile: This is an 88 year old female. Refer to note in patient chart for documentation of history and physical. Patient has symptoms of dysphagia with both liquids and solids, chronic dyspepsia and acute nausea. Complications: No immediate complications. Procedure: Pre-Anesthesia Assessment: - Prior to the procedure, a History and Physical was performed, and patient medications and allergies were reviewed. The patient is competent. The risks and benefits of the procedure and the sedation options and risks were discussed with the patient. All questions were answered and informed consent was obtained. Patient identification and proposed procedure were verified by the physician in the pre-procedure area. Mental Status Examination: alert and oriented. Airway Examination: normal oropharyngeal airway and neck mobility. Respiratory Examination: clear to auscultation. CV Examination: normal. Prophylactic Antibiotics: The patient does not require prophylactic antibiotics. Prior Anticoagulants: The patient has taken no anticoagulant or antiplatelet agents. ASA Grade Assessment: III - A patient with severe systemic disease. After reviewing the risks and benefits, the patient was deemed in satisfactory condition to undergo the procedure. The anesthesia plan was to use monitored anesthesia care (MAC). Immediately prior to administration of medications, the patient was re-assessed for adequacy to receive sedatives. The heart rate, respiratory rate, oxygen saturations, blood pressure, adequacy of pulmonary ventilation, and response to care were monitored throughout the procedure. The physical status of the patient was re-assessed after the procedure. After obtaining informed consent, the endoscope was passed under direct vision. Throughout the procedure, the patient's blood pressure, pulse, and oxygen saturations were monitored continuously. The Endoscope was introduced through the mouth, and advanced to the second part of duodenum. The upper GI endoscopy was accomplished without difficulty. The patient tolerated the procedure well. Scope In: 8:51:33 AM Scope Out: 8:57:42 AM Total Procedure Duration Time 0 hours 6 minutes 9 seconds Findings: Abnormal motility was noted at the cricopharyngeus. The cricopharyngeus was abnormal. There are extra peristaltic waves in the esophageal body. The distal esophagus/lower esophageal sphincter is spastic, but gives up passage to the endoscope. Tertiary peristaltic waves are noted. A guidewire was placed and the scope was withdrawn. Dilation was performed with a Savary dilator with no resistance at 54 Fr. The dilation site was examined and showed moderate improvement in luminal narrowing. A small hiatal hernia was present. Diffuse mild mucosal variance characterized by atrophy was found in the entire examined stomach. Biopsies for histology were taken with a cold forceps for evaluation of celiac disease. A few 5 mm [Pedicle] polyps with no bleeding were found in the duodenal bulb. The polyp was removed with a jumbo cold forceps. Resection and retrieval were complete. Impression: - Abnormal esophageal motility, consistent with aperistalsis. Dilated. - Small hiatal hernia. - Gastric mucosal variant. Biopsied. - A few duodenal polyps. Resected and retrieved. Recommendation: - Await pathology results. - Continue present medications. Procedure Code(s): --- Professional --- 03015, Esophagogastroduodenoscopy, flexible, transoral; with insertion of guide wire followed by passage of dilator(s) through esophagus over guide wire 05801, 59,51, Esophagogastroduodenoscopy, flexible, transoral; with biopsy, single or multiple CPT copyright 2021 [employer]. All rights reserved. The codes documented in this report are preliminary and upon clinical systems educator review may be revised to meet current compliance requirements. Teodoro Real DO 04/19/2024 9:06:51 AM This report has been signed electronically. Number of Addenda: 0 Note Initiated On: 04/19/2024 8:39 AM
--- NOTE | 2024-04-19 09:07 | OP.CCLET_ITS ---
04/19/2024 Rachel Salas Np, Product Support Sales Representative-c Re : Upper GI endoscopy procedure for Chanel Rousseau Dear Josue This procedure was performed on April. My impressions and recommendations are as follows: Impressions : - Abnormal esophageal motility, consistent with aperistalsis. Dilated. - Small hiatal hernia. - Gastric mucosal variant. Biopsied. - A few duodenal polyps. Resected and retrieved. Recommendations : - Await pathology results. - Continue present medications. My findings are described in the full procedure note, which is enclosed. If I can be of further assistance, please feel free to contact me at . Sincerely, Teodoro Real, 04/19/2024 9:06:51 AM This report has been signed electronically.
--- NOTE | 2024-04-19 09:10 | PCM.POST.ANE ---
Anesthesia: Postop Eval I Current Vital Signs Temperature: 98 F Pulse Rate: 71 Blood Pressure: 108/38 Respiratory Rate: 16 Pulse Ox: 97 Oxygen Delivery Method: Nasal Cannula Oxygen Flow Rate (L/min): 2 Assessment Airway patent: Yes Spontaneous unlabored respirations: Yes Mental status: Awake and Calm nausea: No Vomiting: No Anesthesia Complication: No Fluid Hydration Crystalloid volume administer (ml): 400 Total IV fluid infused: 400 Progress Note Anesthesia document: Postop Eval 1 completed: Yes
--- NOTE | 2024-04-19 09:22 | PCM.POSTANE2 ---
Anesthesia Postop Eval I Sum Postop Eval Completion status Anesthesia document: Postop Eval 1 completed: Yes Anesthesia Postop Eval I Summary Anesthesia Postop Eval I Summary: Anesthesia Postop Eval I: Assessment Summary Airway patent Yes 04/19/24 09:11 [email or web address] Spontaneous unlabored Yes 04/19/24 09:11 [email or web address] respirations Mental status Awake,Calm 04/19/24 09:11 [email or web address] nausea No 04/19/24 09:11 [email or web address] Vomiting No 04/19/24 09:11 [email or web address] Anesthesia Postop Eval I: Fluid Summary Crystalloid volume administer 400 04/19/24 09:11 [email or web address] (ml) Colloids volume administered ( ml) Blood Product volume administered (ml) Total IV fluid infused 400 04/19/24 09:11 [email or web address] Anesthesia Postop Eval I: Summary Notes Anesthesia Complication No 04/19/24 09:11 [email or web address] Anesthesia Complication Comment: Post-operative progress note Anesthesia: Postop Eval II Evaluation Mental status: Awake Pain Level: 0 nausea: No Vomiting: No
== END 2024-04-19 09:49 | disposition home or self-care (01) ==
LOC: EN 07:23 → AC 07:24
PROVIDERS: PCP Internal Medicine; Referring Provider Internal Medicine; Visit Provider Internal Medicine Gastroenterology
PROC: 0DJ08ZZ Inspection of Upper Intestinal Tract, Via Natural or Artificial Opening Endoscopic (ICD-10-PCS; CPT 43235; principal; 2024-04-19 08:25)
DX: K31.7 Polyp of stomach and duodenum (principal); J44.9 Chronic obstructive pulmonary disease, unspecified; E11.9 Type 2 diabetes mellitus without complications; K44.9 Diaphragmatic hernia without obstruction or gangrene; K30 Functional dyspepsia; Z79.899 Other long term (current) drug therapy; K21.9 Gastro-esophageal reflux disease without esophagitis; Z79.02 Long term (current) use of antithrombotics/antiplatelets; E78.00 Pure hypercholesterolemia, unspecified
CPT/HCPCS: 43248; 43239; 88305; J7120; C1769; J2405

== ENCOUNTER 2024-06-06 18:16 | Inpatient (IN) | payer MEDICARE, SELFPAY ==
[2024-06-06 18:17] VITALS: BP 126/49; PULSE 94; RESP 18; TEMP 35.7; O2SAT 90
[2024-06-06 18:19] VITALS: BMI 27.2
[2024-06-06 18:46] LABS: Absolute Lymphocyte Count 1.38 X10^3/uL (0.83-4.51); Absolute Neutrophil Count 4.1 X10^3/uL (2.0-7.7); Basophil# 0.03 X10^3/uL; Basophil% 0.5 % (0-1); Eosinophil# 0.23 X10^3/uL; Eosinophils% 3.6 % (0-5); Hematocrit 32.7 % (37-47); Hemoglobin 10.9 g/dL (12.0-15.0); Lymphocyte # 1.38 X10^3/ul (0.83-4.51); Lymphocyte % 21.4 % (19-41); Mean Corp Hgb Conc 33.3 g/dL (32-36); Mean Corpuscular Hgb 31.9 pg (27.0-32.0); Mean Corpuscular Volume 95.6 fL (81-99); Mean Platelet Vol. 10.4 fl (6.2-12.0); Monocyte# 0.68 X10^3/uL; Monocyte% 10.6 % (0-10); NRBC Flagged by Analyzer 0 % (0-5); Neutrophil % 63.6 % (47-70); Platelet Count 164 K/mm3 (150-450); RBC Distribution Width CV 13.3 % (11.6-14.6); RBC Distribution Width SD 46.8 fl (35.1-43.9); Red Blood Count 3.42 M/mm3 (4.2-5.4); White Blood Count 6.4 K/mm3 (4.4-11.0)
--- NOTE | 2024-06-06 19:01 | CT_ITS ---
EXAM: CT HEAD WITHOUT INTRAVENOUS CONTRAST CLINICAL INDICATION: Auditory hallucinations x 2-week, no history of ps -- Psychosis or dementia TECHNIQUE: Multiple axial images were obtained of the head without intravenous contrast. This CT exam was performed using one or more of the following dose reduction techniques: automated exposure control, adjustment of the mA and/or kV according to patient size, and/or use of iterative reconstruction technique. COMPARISON: No relevant prior studies available. FINDINGS: BRAIN AND EXTRA-AXIAL SPACES: There is non-specific periventricular hypoattenuation which is most commonly related to chronic microvascular ischemic disease in a patient of this age. There is no mass, mass-effect, or shift of the midline structures. No evidence of acute infarct or acute intracranial hemorrhage. There is no evidence of pathologic extra-axial fluid. There is no hydrocephalus. Patent basal cisterns. BONES/JOINTS: No significant abnormality. No discrete lytic or blastic abnormalities. VASCULATURE: Vascular calcifications. SINUSES: No significant findings. MASTOID AIR CELLS: No significant effusion. ORBITS: Bilateral ocular lens extraction presumptively for the treatment of cataracts. Otherwise, no acute orbital pathology. CT/Brain/Head without Contrast IMPRESSION: Chronic ischemic changes. No evidence of acute intracranial pathology. Electronically Signed: Pedro Diaz DO at 20:44 EST ,
[2024-06-06 19:05] LABS: Anion Gap 9 (5-15); BUN 42 mg/dL (7-18); BUN/Creat Ratio 25.3 RATIO (10-20); Calcium,Total 6.8 mg/dL (8.5-10.1); Chloride 101 mmol/L (98-107); Creatinine, Serum 1.66 mg/dL (0.55-1.02); EST Glomerular Filtration Rate 31 mL/min (>60); Est Glom Filt Rate - Afr Amer 38 mL/min (>60); Glucose 181 mg/dL (74-106); Magnesium 0.5 mg/dL (1.6-2.6); Potassium 3.2 mmol/L (3.5-5.1); Sodium Level 143 mmol/L (136-145)
--- NOTE | 2024-06-06 19:30 | EX.ED.DYSGE1 ---
HPI History of Present Illness Chief Complaint: Abn Labs Detail of Chief Complaint: Patient presents because of abnormal blood work. Informant: patient and family Onset/Context/Timing Onset: Today (Blood work was performed at [facility].) Context: - (Unknown, presumed gradual) Timing: Continuous (Presumed) Quality: Auditory hallucinations x 2 weeks, and abnormal electrolytes Location: Not applicable Current Severity: Severe Maximum Severity: Severe Worsened by: Unknown Relieved by: Not applicable Associated Symptoms Associated Symptoms: Only symptom is auditory hallucinations Narrative Narrative: Patient is AN 88-year-old woman. She has history of iron deficiency anemia, depression, GERD, type 2 diabetes who was seen by her doctor today for auditory hallucinations. Blood work was obtained. There was no imaging. She denies headache. She does report blurred vision bilaterally for the last several days. She states she likes to read a lot and she is having trouble seeing the words. She does not have a visual field cut. There is no problem with speech or swallowing. She denies paresthesia, anesthesia or motor weakness upper lower extremity. She denies tremors. She denies cardiac or respiratory symptoms. She denies GI symptoms. She is on spironolactone. Prior similar symptoms: No Recent Illness/Hospitalization: No PFSH PFS Medical History Wears glasses Wears dentures Rash Diabetes Arthritis Low iron Anemia High cholesterol Migraine headache Restless legs Difficulty chewing History of diverticulitis Heartburn Gastric reflux Former smoker On home oxygen therapy Shortness of breath on exertion Chronic cough History of edema History of echocardiogram History of stress test Cardiology follow-up encounter Hypertension Chronic hypoxic respiratory failure History of diabetes mellitus History of hypertension Diverticulitis History of chronic heart failure History of COPD COPD (chronic obstructive pulmonary disease) Anemia Chronic heart failure with preserved ejection fraction (HFpEF) Hyperlipidemia Right lumbar radiculopathy CKD (chronic kidney disease), stage III Hypertension Chronic kidney disease PAD (peripheral artery disease) Renal cyst History of TIA (transient ischemic attack) Bilateral carotid artery stenosis Claudication RLS (restless legs syndrome) Diverticulosis TIA (transient ischemic attack) Vertigo Leg edema Dyslipidemia Home Medications ?Medication ?Instructions ?Recorded ?Last Taken ?Type atorvastatin 40 mg tablet 40 mg PO QHS cholesterol 02/22/16 10/04/23 21:55 History clopidogrel 75 mg tablet 75 mg PO DAILY BLOOD THINNER 02/22/16 04/13/24 History albuterol sulfate 90 mcg/actuation 2 puff inhalation BID PRN 03/16/18 04/19/24 History aerosol inhaler shortness of breath or wheezing pramipexole 1.5 mg tablet 1.5 mg PO QHS restless leg syndrome 08/18/23 10/04/23 21:55 History budesonide 0.5 mg/2 mL suspension 0.25 mg inhalation BID breathing 09/09/23 10/05/23 07:00 Rx for nebulization 30 days #0 mL furosemide 40 mg tablet 40 mg PO BIDCM FLUID RETENTION 30 10/12/23 Unknown Rx days #60 tabs pantoprazole 40 mg tablet,delayed 40 mg PO BID reflux 30 days #60 10/12/23 04/19/24 Rx release tabs polysaccharide iron complex 150 mg 150 mg PO DAILY supplement 30 days 10/12/23 Unknown Rx iron capsule (Ferrex) #30 caps potassium chloride 20 mEq 20 meq PO BIDCM supplement 30 days 10/12/23 Unknown Rx tablet,extended release(part/cryst) #60 tabs Arthritis Pain Compound 3 click topical BID 5 days ##0 11/06/23 Unknown Rx acetaminophen 500 mg tablet 1,000 mg PO Q6H PRN pain 02/14/24 Unknown History arformoterol 15 mcg/2 mL solution 15 mcg inhalation BID 02/14/24 04/19/24 History for nebulization duloxetine 20 mg capsule,delayed 40 mg PO DAILY 02/14/24 04/19/24 History release spironolactone 25 mg tablet 25 mg PO QDAY 02/14/24 Unknown History zolpidem 5 mg tablet 5 mg PO QHS PRN sleep 02/14/24 Unknown History amitriptyline 10 mg tablet 10 mg PO QDAY #30 tabs 05/01/24 Unknown Rx carvedilol 12.5 mg tablet 12.5 mg PO BID 06/06/24 Unknown History nitrofurantoin 1 cap PO BID 06/06/24 Unknown History monohydrate/macrocrystals 100 mg capsule Allergy/AdvReac Type Severity Reaction Status Date / Time lisinopril Allergy edema Verified 06/06/24 18:17 aspirin AdvReac Upset Verified 06/06/24 18:17 Stomach Family History Mother Heart disease Surgical History History of thyroid surgery History of carotid angioplasty History of kidney stones History of basal cell carcinoma excision History of total hysterectomy Social History household members: none housing: house Smoking Status: Former smoker how long ago did patient quit smokin years ago alcohol intake: current alcohol intake frequency: holidays/special occasions only details: rare substance use type: does not use caffeine: Yes Type: coffee Number of servings: 1 ROS ROS ED Constitutional Constitutional ED: Denies chills, fever(s), subjective or sweats Eyes Eyes: Reports blurry vision bilateral; Denies change in vision or diplopia ENT ENT ED: Denies ear pain, rhinorrhea or sore throat Cardiovascular Cardiovascular: Denies chest pain, orthopnea, palpitations or racing heartbeat Respiratory/Chest Respiratory/Chest: Denies cough, dyspnea, dyspnea on exertion or orthopnea Gastrointestinal Gastrointestinal: Reports diarrhea; Denies abdominal pain, nausea or vomiting Genitourinary Genitourinary ED: Denies dysuria, hematuria or urinary frequency Musculoskeletal Musculoskeletal: Denies arthralgias, back pain, myalgias or neck pain Integumentary Denies rash Neurologic Neurologic: Denies headache(s), paresthesias or weakness Psychiatric Psychiatric: Reports other Details: Auditory hallucinations x 2 weeks ; Denies anxiety, depression or suicidal ideation Hematologic/Lymphatic Hematologic/Lymphatic: Reports systems reviewed and no addt'l complaints, except as documented EXAM Physical Exam Const Vital Signs: 06/06/24 18:17 06/06/24 18:25 06/06/24 20:16 Temperature 96.3 F L Temperature Source Temporal Pulse Rate 94 80 Respiratory Rate 18 20 H Respiratory Pattern Normal Blood Pressure 126/49 H 113/83 H Blood Pressure Mean 74 93 Pulse Ox 90 98 Oxygen Delivery Method Nasal Cannula Room Air Oxygen Flow Rate (L/min) 2 Positive well nourished and well developed General Appearance ED: well developed and NAD; Negative for pallor HEENT Reports moist mucous membranes HEENT Narrative: There is atraumatic, cephalic. Ears normal. Nares patent. Posterior pharynx is normal. Uvula midline. No deviation of protrusion. Eyes PERRL and EOMs intact bilaterally Eyes Narrative: There is no nystagmus. There is no visual field cut. General Eye ED: Negative for pale conjunctiva or scleral icterus Neck no lymphadenopathy, supple and no JVD Resp normal respiratory effort and clear to auscultation bilaterally Cardio regular rate, regular rhythm, S1 normal heart sound, S2 normal heart sound and no murmurs GI normal to inspection, nondistended, normoactive bowel sounds, non-tender, non-distended and no masses; Negative for hepatosplenomegaly Auscultation: normoactive bowel sounds Back/Spine no CVA tenderness Extremity normal to inspection General Extremety ED: Negative for edema or tenderness General Extremity: Negative for edema Neuro oriented x3, CN's II-XII intact bilaterally and no sensory deficits noted Neuro Narrative: There is no dysmetria. There is no clonus at the ankles. Negative Babinski sign. Sensorium / Orientation: alert Motor Exam: strength 5/5 throughout Psych mental status grossly normal Skin no rashes or lesions noted and no wounds General Skin Exam: Negative for jaundice or pallor MDM MDM MDM Narrative Medical decision making narrative: Labs were repeated. After labs were obtained and resulted patient was started on a calcium infusion, magnesium infusion and p.o. potassium. Ionized calcium was added. After discussion with the hospitalist obtain urine osmolarity and serum tonsillary as well as urine chloride and urine sodium level. Plan is admission PCU full EF CAT scan is unremarkable. If CAT scan shows a mass or lesion will require transfer. Lab Data Attestation: I reviewed the patient's lab results. Lab results narrative: Mild anemia with normal indices. CO2 is elevated at 33. Creatinine is elevated 1.66 with an estimated GFR of 25. Calcium is 6.8. Magnesium is 0.5. Potassium is 3.2. Labs: Laboratory Results - last 24 hr 06/06/24 06/06/24 18:39 20:01 WBC 6.4 RBC 3.42 L Hgb 10.9 L Hct 32.7 L MCV 95.6 MCH 31.9 MCHC 33.3 RDW Std Deviation 46.8 H RDW Coeff of Ha 13.3 Plt Count 164 MPV 10.4 Immature Gran % (Auto) 0.300 Neut % (Auto) 63.6 Lymph % (Auto) 21.4 [place] % (Auto) 10.6 H Eos % (Auto) 3.6 Baso % (Auto) 0.5 Absolute Neuts (auto) 4.1 Absolute Lymphs (auto) 1.38 Nucleated RBC % 0 Sodium 143 Potassium 3.2 L Chloride 101 Carbon Dioxide 33.0 H Anion Gap 9 BUN 42 H Creatinine 1.66 H Est GFR (MDRD) Af Amer 38 L Est GFR (MDRD) Non-Af 31 L BUN/Creatinine Ratio 25.3 H Glucose 181 H Serum Osmolality 328 H Calcium 6.8 L Ionized Calcium 0.87 L Magnesium 0.5 L* Radiography Diagnostic Testing: CT of the head per my read reveals no obvious abnormality. Sinus appeared normal. Will contact hospitalist for admission. Critical Care Time Critical Care Time: Yes Critical care time (excluding procedures): 30-74 minutes (32), Including time spent: (History, physical, documentation, reviewing outside laboratory studies, reviewing inpatient outpatient records, documentation, independent rotation laboratory results initiation treatment for multi electrolyte derangement.), Discussing w/Patient &/or Family/Guide Visitor, Discussing w/Consultants and Arranging Admission or Transfer Discharge Plan Dx/Rx/DC Orders Clinical Impression: Auditory hallucination, Depression, Type 2 diabetes mellitus with hyperglycemia, Hypocalcemia, Hypomagnesemia, Acute hypokalemia, Anemia Disposition Disposition: Acute Care Hospital [facility]
--- NOTE | 2024-06-06 19:52 | HP.PCM.HOS_ITS ---
[facility] - General General Date of Admission: 06/06/24 Date of Service: 06/06/24 Chief Complaint: Abnormal Labs, Diarrhea and Auditory Hallucinations x 2 Weeks. HPI Narrative DICK ROUSSEAU, is a 88 F with a past medical history of essential hypertension; on Coreg and Spironolactone, hyperlipidemia; on atorvastatin, DM-2; of unknown control, history of chronic diastolic CHF; with preserved LVEF on Lasix plus supplemental KCl BID, former tobacco abuse (quit ~2021); with subsequent COPD, chronic hypoxic respiratory failure; on 2L NC continuous, history of bilateral carotid artery stenosis with previous TIA (2018); s/p carotid angioplasty on Plavix, PAD; with claudication, CKD; stage IIIb, history of renal calculi, history of renal cyst, SOPHIE, history of diverticulitis, RLS; on pramipexole, history of depression; on amitriptyline and duloxetine, chronic insomnia; on as needed nightly Ambien, history of migraine headaches, history of severe GERD; on Protonix BID, history of thyroid surgery, history of total hysterectomy, history of basal cell carcinoma on forehead; s/p excision, history of vertigo, listed allergy to lisinopril (edema), listed allergy to aspirin (upset stomach), OA; with history of Right lumbar radiculopathy and recently diagnosed UTI with patient started on empiric Nitrofurantoin ~2 days ago who presents to [facility] ER complaining of auditory hallucinations. Ms. Rousseau is not a fully-reliable historian at this time so information was gathered from chart, medical staff and computer. According to the records the patient was seen by one of her physicians today as an outpatient at [facility] for nonbloody diarrhea and auditory hallucinations with blood work ordered which revealed critical hypomagnesemia of 0.5 mg/dL and severe hypocalcemia of 6.8 mg/dL along with mild hypokalemia of 3.2 mmol/L resulting in her being sent to the ER for further evaluation and treatment. She also complains of blurred vision in both eyes for the last several days with patient being an avid reader at baseline but now is having trouble saying the words. She denies problems with speech, swallowing, paresthesias, tremors, seizures, headache or focal neurologic deficits. She also denies associated fever, chills, nausea, vomiting, chest pain, SOB, alcohol abuse or other recent illness. A CT scan of the abdomen and pelvis was ordered to investigate for possible signs of inflammation with diarrhea with results positive for evidence of Acute Diverticulitis along with an incidentally noted new hyperdense ~4.3 cm Right Renal Mass very suspicious for malignancy with radiologist recommending follow up MRI. She was then admitted to the PCU for ongoing care for stay that is expected to extend beyond 2 midnights. [facility] Medical History Wears glasses Wears dentures Rash Diabetes Arthritis Low iron Anemia High cholesterol Migraine headache Restless legs Difficulty chewing History of diverticulitis Heartburn Gastric reflux Former smoker On home oxygen therapy Shortness of breath on exertion Chronic cough History of edema History of echocardiogram History of stress test Cardiology follow-up encounter Hypertension Chronic hypoxic respiratory failure History of diabetes mellitus History of hypertension Diverticulitis History of chronic heart failure History of COPD COPD (chronic obstructive pulmonary disease) Anemia Chronic heart failure with preserved ejection fraction (HFpEF) Hyperlipidemia Right lumbar radiculopathy CKD (chronic kidney disease), stage III Hypertension Chronic kidney disease PAD (peripheral artery disease) Renal cyst History of TIA (transient ischemic attack) Bilateral carotid artery stenosis Claudication RLS (restless legs syndrome) Diverticulosis TIA (transient ischemic attack) Vertigo Leg edema Dyslipidemia Home Medications ?Medication ?Instructions ?Recorded ?Last Taken ?Type atorvastatin 40 mg tablet 40 mg PO QHS cholesterol 02/22/16 10/04/23 21:55 History clopidogrel 75 mg tablet 75 mg PO DAILY BLOOD THINNER 02/22/16 04/13/24 History albuterol sulfate 90 mcg/actuation 2 puff inhalation BID PRN 03/16/18 04/19/24 History aerosol inhaler shortness of breath or wheezing pramipexole 1.5 mg tablet 1.5 mg PO QHS restless leg syndrome 08/18/23 10/04/23 21:55 History budesonide 0.5 mg/2 mL suspension 0.25 mg inhalation BID breathing 09/09/23 10/05/23 07:00 Rx for nebulization 30 days #0 mL furosemide 40 mg tablet 40 mg PO BIDCM FLUID RETENTION 30 10/12/23 Unknown Rx days #60 tabs pantoprazole 40 mg tablet,delayed 40 mg PO BID reflux 30 days #60 10/12/23 04/19/24 Rx release tabs polysaccharide iron complex 150 mg 150 mg PO DAILY supplement 30 days 10/12/23 Unknown Rx iron capsule (Ferrex) #30 caps potassium chloride 20 mEq 20 meq PO BIDCM supplement 30 days 10/12/23 Unknown Rx tablet,extended release(part/cryst) #60 tabs Arthritis Pain Compound 3 click topical BID 5 days ##0 11/06/23 Unknown Rx acetaminophen 500 mg tablet 1,000 mg PO Q6H PRN pain 02/14/24 Unknown History arformoterol 15 mcg/2 mL solution 15 mcg inhalation BID 02/14/24 04/19/24 History for nebulization duloxetine 20 mg capsule,delayed 60 mg PO DAILY 02/14/24 04/19/24 History release spironolactone 25 mg tablet 25 mg PO QDAY 02/14/24 Unknown History zolpidem 5 mg tablet 10 mg PO QHS PRN sleep 02/14/24 Unknown History carvedilol 12.5 mg tablet 12.5 mg PO BID 06/06/24 Unknown History nitrofurantoin 1 cap PO BID 06/06/24 Unknown History monohydrate/macrocrystals 100 mg capsule Allergy/AdvReac Type Severity Reaction Status Date / Time lisinopril Allergy edema Verified 06/06/24 18:17 aspirin AdvReac Upset Verified 06/06/24 18:17 Stomach Family History Mother Heart disease Surgical History History of thyroid surgery History of carotid angioplasty History of kidney stones History of basal cell carcinoma excision History of total hysterectomy Social History household members: none housing: house Smoking Status: Former smoker how long ago did patient quit smokin years ago alcohol intake: current alcohol intake frequency: holidays/special occasions only details: rare substance use type: does not use caffeine: Yes Type: coffee Number of servings: 1 ROS ROS Narrative Review of Systems: Constitutional: Patient denies fever or chills. Eyes: Patient admits to blurry vision in both eyes but denies discharge from eyes or visual field cuts. ENT: Patient denies runny nose, sore throat or ear pain. Resp: Patient denies shortness of breath or cough. CV: Patient denies chest pain, palpitations or heart racing. GI: Patient admits to nonbloody diarrhea but she denies nausea, vomiting or constipation. : Patient denies dysuria or hematuria. MSK: Patient denies arthralgias or myalgias. Skin: Patient denies rash, abscess or jaundice. Psych: Patient admits to auditory hallucinations x 2 weeks as per HPI but she denies symptoms of uncontrolled depression or anxiety. Neuro: Patient denies headache, paresthesias or focal neurologic weakness. Allergy: Patient denies lip swelling, tongue swelling or urticaria. Hematology: Patient denies easy bleeding or easy bruisability. Endocrinology: Patient denies polyuria, polydipsia or polyphagia. 14 point review of systems otherwise negative except for positives noted above in HPI. Vital Signs Vital Signs Vital Signs: 06/06/24 18:17 06/06/24 18:25 Temperature 96.3 F L Temperature Source Temporal Pulse Rate 94 Respiratory Rate 18 Respiratory Pattern Normal Blood Pressure 126/49 H Blood Pressure Mean 74 Pulse Ox 90 Oxygen Delivery Method Nasal Cannula Oxygen Flow Rate (L/min) 2 Physical Exam Const alert, no apparent distress and average body habitus Constitutional Narrative: Patient is having auditory hallucinations. General Appearance: cooperative Orientation / Consciousness: confused HEENT normocephalic, head/scalp atraumatic, hearing grossly normal bilaterally and moist oral mucous membranes Eyes PERRL, EOMs intact bilaterally and conjunctivae normal Neck no lymphadenopathy and supple Resp normal respiratory effort, no retractions, no use of accessory muscles and clear to auscultation bilaterally Cardio regular rate and regular rhythm GI normal to inspection, nondistended, normoactive bowel sounds, soft to palpation, non-tender and non-distended Extremity normal to inspection, full ROM and no clubbing, cyanosis or edema Skin Skin Narrative: Patient has no evidence of rash, abscess or jaundice. Neuro CN's II-XII intact bilaterally, moves all extremities and no focal motor deficits Sensorium / Orientation: awake, alert, oriented to person and oriented to place Speech: speech normal Psych affect normal Results Medical Records Data Attestation: I reviewed the patient's medical records Lab / Micro Data Attestation: I reviewed the patient's lab results. 11/21/24 05:46 06/07/24 05:46 Labs: Laboratory Results - last 24 hr 06/06/24 18:39: WBC 6.4, RBC 3.42 L, Hgb 10.9 L, Hct 32.7 L, MCV 95.6, MCH 31.9, MCHC 33.3, RDW Std Deviation 46.8 H, RDW Coeff of Ha 13.3, Plt Count 164, MPV 10.4, Immature Gran % (Auto) 0.300, Neut % (Auto) 63.6, Lymph % (Auto) 21.4, M joan % (Auto) 10.6 H, Eos % (Auto) 3.6, Baso % (Auto) 0.5, Absolute Neuts (auto) 4.1, Absolute Lymphs (auto) 1.38, Nucleated RBC % 0, Sodium 143, Potassium 3.2 L , Chloride 101, Carbon Dioxide 33.0 H, Anion Gap 9, BUN 42 H, Creatinine 1.66 H, Est GFR (MDRD) Af Amer 38 L, Est GFR (MDRD) Non-Af 31 L, BUN/Creatinine Ratio 25.3 H, Glucose 181 H, Calcium 6.8 L, Magnesium 0.5 L* Imaging [facility] Imaging Services [address] [place] [address] Abdomen/Pelvis without Cont MR#: [id number] Acct: [id number] Name: DICK ROUSSEAU Rep #: [id number] : 1935 F 88 From: Pedro Diaz DO PCP: WILMER Maynard Status: ADM IN Study: Abdomen/Pelvis without Cont Date of Exam: 06/06/24 Exam# [id number] Ordering Dr: Jorje Hood DO ADDENDUM by Dr. Pedro Diaz DO on 06/06/24 at 2318 EXAM: CT ABDOMEN AND PELVIS WITHOUT INTRAVENOUS CONTRAST CLINICAL INDICATION: Diarrhea. Evaluate for Colitis. TECHNIQUE: Helically acquired images were obtained of the abdomen and pelvis without intravenous contrast. This CT exam was performed using one or more of the following dose reduction techniques: automated exposure control, adjustment of the mA and/or kV according to patient size, and/or use of iterative reconstruction technique. COMPARISON: CT abdomen and pelvis, 02/22/2016 FINDINGS: LOWER THORAX: Coronary artery calcifications and/or stents. Lung bases are clear. No cardiomegaly. No significant pericardial effusion. ABDOMEN: LIVER: No significant abnormality. Homogeneous. GALLBLADDER AND BILE DUCTS: No significant abnormality. No calcified gallstones. No gallbladder distention or wall edema. No intra- or extrahepatic biliary ductal dilation. PANCREAS: No significant abnormality. No focal cystic mass. SPLEEN: No significant abnormality. Normal size without focal cystic or solid mass. ADRENALS: Left adrenal nodule measuring approximately 1.3 cm with Hounsfield attenuation of 12. KIDNEYS AND URETERS: There is a hyperdense renal mass on the right which is new compared to the prior examination measuring 4.3 cm. Right renal atrophy. Right renal cysts are present for which no follow-up is indicated. No hydronephrosis. STOMACH AND BOWEL: There is colonic diverticulosis. There is wall thickening in the sigmoid colon suggesting acute diverticulitis. No discrete pericolonic abscess is present and there is no evidence of perforation. No stomach or bowel distention. PELVIS: APPENDIX: No evidence of acute appendicitis. BLADDER: No significant abnormality. REPRODUCTIVE: Status post hysterectomy. ABDOMEN and PELVIS: INTRAPERITONEAL SPACE: Mild stranding in the left lower quadrant mesentery. No free air or free fluid. BONES/JOINTS: L1 superior endplate mild compression fracture with less than 25% vertebral body height loss and mild compression fracture of T11 at the superior endplate with less than 25% vertebral body height loss. No suspicious lytic or blastic abnormality. SOFT TISSUES: No significant abnormality. No discrete abdominal or pelvic wall hernia. VASCULATURE: Atherosclerosis of the aorta and its branch vessels. LYMPH NODES: No significant abnormality. No enlarged lymph nodes. 06/06/24 [id number] cc: WILMER Salas; Dr. Jorje Hood DO ~* Signed ADDENDUM by Dr. Pedro Diaz DO on 06/06/[address]/Abdomen/Pelvis without Cont IMPRESSION: 1. Findings suggestive of acute uncomplicated sigmoid diverticulitis. 2. There is a hyperdense renal mass on the right which is new compared to the prior examination measuring 4.3 cm. ACR White Paper guidelines (William, et al. JACR 2018; 15(2):264-273) recommend MRI or CT without and with intravenous contrast. 3. Left adrenal nodule measuring approximately 1.3 cm with Hounsfield attenuation of 12. 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 ACR White Paper guidelines (Homero et al. JACR 2017; 14(8):2097-5428) suggest no imaging follow-up is necessary. ACR White Paper guidelines (CarlisleGiovana, et al. JACR 2017; 14(8):0669-0114) suggest no imaging follow-up is necessary. Consider biochemical assays to determine functional status and exclude pheochromocytoma if biopsy/resection is planned. 4. L1 superior endplate mild compression fracture with less than 25% vertebral body height loss and mild compression fracture of T11 at the superior endplate with less than 25% vertebral body height loss. These are age indeterminate. N.B. : SPARKLE ROMREO RN, confirmed on 06/06/2024 23:59:19 (ET) that the healthcare facility has received the radiology report. Electronically Signed: Pedro Diaz DO at 23:18 EST , 06/07/24 0006 - [facility] Imaging Services [address] [place] [id number] Brain/Head without Contrast MR#: [id number] Acct: [id number] Name: DICK ROUSSEAU Rep #: [id number] : 1935 F 88 From: Pedro Diaz DO PCP: WILMER Maynard Status: REG ER Study: Brain/Head without Contrast Date of Exam: 06/06/24 Exam# [id number] Ordering Dr: Huan Lomas MD EXAM: CT HEAD WITHOUT INTRAVENOUS CONTRAST CLINICAL INDICATION: Auditory hallucinations x 2-week, no history of ps -- Psychosis or dementia TECHNIQUE: Multiple axial images were obtained of the head without intravenous contrast. This CT exam was performed using one or more of the following dose reduction techniques: automated exposure control, adjustment of the mA and/or kV according to patient size, and/or use of iterative reconstruction technique. COMPARISON: No relevant prior studies available. FINDINGS: BRAIN AND EXTRA-AXIAL SPACES: There is non-specific periventricular hypoattenuation which is most commonly related to chronic microvascular ischemic disease in a patient of this age. There is no mass, mass-effect, or shift of the midline structures. No evidence of acute infarct or acute intracranial hemorrhage. There is no evidence of pathologic extra-axial fluid. There is no hydrocephalus. Patent basal cisterns. BONES/JOINTS: No significant abnormality. No discrete lytic or blastic abnormalities. VASCULATURE: Vascular calcifications. SINUSES: No significant findings. MASTOID AIR CELLS: No significant effusion. ORBITS: Bilateral ocular lens extraction presumptively for the treatment of cataracts. Otherwise, no acute orbital pathology. CT/Brain/Head without Contrast IMPRESSION: Chronic ischemic changes. No evidence of acute intracranial pathology. Electronically Signed: Pedro Diaz DO at 20:44 EST , CC: WILMER Salas; Dr. Huan Lomas MD ~ General Superintendent: Signed Assessment & Plan Assessment/Plan (1) Hypomagnesemia: (2) Hypocalcemia: (3) Acute hypokalemia: (4) Dehydration: (5) Diarrhea: QUALIFIERS: Diarrhea type: unspecified type Qualified Code(s): R 19.7 - Diarrhea, unspecified (6) Acute diverticulitis: (7) Renal mass, right: (8) Auditory hallucination: (9) Metabolic encephalopathy: (10) Adverse drug reaction: QUALIFIERS: Encounter type: initial encounter Qualified Code(s): T50.905A - Adverse effect of unspecified drugs, medicaments and biological substances, initial encounter PLAN: Plan 1. Severe hypomagnesemia of 0.5 mg/dL present on admission - Admit to PCU. Give IV magnesium sulfate and then recheck level in a.m. to ensure improvement. 2. Severe hypocalcemia of 6.8 mg/dL present on admission complicating #1 - Give supplemental IV calcium gluconate and then recheck labs in a.m. to confirm repletion. 3. Hypokalemia of 3.2 mmol/L present on admission compounding #1 & #2 - Give supplemental IV and oral KCl and then recheck BMP in a.m. to follow trend. 4. Laboratory evidence of dehydration evidenced by elevated BUN/creatinine ratio of 25.3 present on admission in the setting of known CKD; stage IIIb likely due to adverse drug reaction to Lasix adding to the medical complexity of #1 - #3 - Aggressively volume resuscitate and recheck renal indices in a.m. Avoid potentially nephrotoxic agents. 5. CT positive for Acute Diverticulitis with Nonbloody diarrhea likely resulting as the primary cause for the electrolyte disturbances and volume depletion outlined in #1 - #4 with incidentally noted new ~4.3 cm Right Renal Mass and radiologist recommending MRI with and without contrast to further delineate lesion - Place on enteric precautions and check stool studies to evaluate for potential underlying infectious etiology. Start IV Rocephin and IV Flagyl to cover gram-negatives and anaerobes. Give probiotic plus vitamin D3, vitamin C and zinc to help boost immunity. Finally, we will check MRI of the abdomen with and without IV contrast to further clarify mass that is likely a malignancy until proven otherwise. 6. Metabolic encephalopathy with auditory hallucinations x 2 weeks arising from #1 - #5 - Minimize [employer]OR-active medications. Check TSH, B12, folate. SEA and UDS to evaluate for other potentially reversible causes of confusion. Otherwise, continue supportive care as outlined above and monitor for improvement. 7. Chronic insomnia; on as needed nightly Ambien - Hold Ambien with possible adverse drug reaction contributing to #6. 8. Essential hypertension; on Coreg and Spironolactone - Hold Spironolactone due to relative volume depletion but continue Coreg as previous. Give hydralazine IV as needed for systolic blood pressure greater than 160 mmHg. 9. Hyperlipidemia; on atorvastatin - Resume statin and check Lipid Profile. 10. DM-2; of unknown control - ADA diet. FSBS q. AC/HS plus SSI. Check HgbA1c to objectively evaluate quality of diabetic control. 11. History of chronic diastolic CHF; with preserved LVEF on Lasix plus supplemental KCl BID - Hold Lasix in light of volume depletion. Patient has no signs of volume overload at this time. 12. Former tobacco abuse (quit ~2021); with subsequent COPD and chronic hypoxic respiratory failure; on 2L NC - Stable with no evidence of acute flare. Continue scheduled and as needed inhalers as previous. 13. History of bilateral carotid artery stenosis with previous TIA (2018); s/p carotid angioplasty on Plavix - Maintain Plavix as before. If auditory hallucinations persist and spite of correction of electrolyte disturbances and volume depletion we will obtain MRI of the brain. 14. PAD; with claudication - Noted. 15. History of renal calculi - Noted. 16. History of renal cyst - Noted. 17. SOPHIE - Stable with hemoglobin of 10.9 g/dL present on admission. 18. History of diverticulitis - Noted with CT scan and abdomen pelvis pending at this time. 19. RLS; on pramipexole - Continue pramipexole as previous. 20. History of depression; on amitriptyline and duloxetine - Resume current regimen. 21. History of migraine headaches - Stable with no complaints of headache at this time. 22. History of severe GERD; on Protonix BID - Maintain current Protonix regimen to prevent acute flare. 23. History of thyroid surgery - Noted. Check TSH. 24. History of total hysterectomy - Noted. 25. History of basal cell carcinoma on forehead; s/p excision - Noted with no signs of recurrence. 26. History of vertigo - Give Antivert as needed with no complaints of vertigo at this time. 27. Listed allergy to lisinopril (edema) - Noted. 28. Listed allergy to aspirin (upset stomach) - Noted. 29. OA; with history of Right lumbar radiculopathy - Noted. Give Tylenol prn. 30. DVT prophylaxis - Heparin 5,000 U sq. BID plus SCDs. Total time: Approximately (but not less than) 75 minutes. Charges/Coding Visit Charges Inpatient E&M: 16675 Init Hosp L3
[2024-06-06] MEDS: Calcium Gluconate IV 2 GM in 0.9% Normal Saline (100mL Bag) 100 ML IV (20:01)
[2024-06-06 20:08] LABS: Ionized Calcium 0.87 mmol/L (1.09-1.30)
[2024-06-06] MEDS: Magnesium Sulfate 4gm/100mL 4 GM/100 ML IV.SOLN. IV (20:12)
[2024-06-06] MEDS: Potassium Chloride Oral Soln 20 MEQ/15 ML UDC 40 MEQ PO (20:14)
[2024-06-06 20:16] VITALS: BP 113/83; PULSE 80; RESP 20; O2SAT 98
[2024-06-06 20:30] LABS: Osmolality, Serum 328 mOsm/KG (280-301)
[2024-06-06 20:51] LABS: Ionized Calcium Order ORDER TUBE
[2024-06-06 20:54] VITALS: BP 137/65; PULSE 77; RESP 18; TEMP 36.4; O2SAT 97
[2024-06-06 20:58] LABS: Albumin, Serum 3.3 g/dL (3.2-5.0); Globulin 3.4 g/dL (2.2-4.2); Protein, Total 6.7 g/dL (6.4-8.2)
[2024-06-06 20:59] LABS: AST(SGOT) 20 U/L (15-37); Alanine Aminotransfer ALT/SGPT 17 U/L (13-56); Alkaline Phosphatase 92 U/L (45-117); Bilirubin, Direct 0.17 mg/dL (0.00-0.30)
[2024-06-06 21:46] LABS: Hemoglobin A1c 5.9 % (3.8-5.6)
--- NOTE | 2024-06-06 21:46 | CT_ITS ---
ACR Level 3 findings have been noted. An addendum which confirms receipt of the report will follow. EXAM: CT ABDOMEN AND PELVIS WITHOUT INTRAVENOUS CONTRAST CLINICAL INDICATION: Diarrhea. Evaluate for Colitis. TECHNIQUE: Helically acquired images were obtained of the abdomen and pelvis without intravenous contrast. This CT exam was performed using one or more of the following dose reduction techniques: automated exposure control, adjustment of the mA and/or kV according to patient size, and/or use of iterative reconstruction technique. COMPARISON: CT abdomen and pelvis, 02/22/2016 FINDINGS: LOWER THORAX: Coronary artery calcifications and/or stents. Lung bases are clear. No cardiomegaly. No significant pericardial effusion. ABDOMEN: LIVER: No significant abnormality. Homogeneous. GALLBLADDER AND BILE DUCTS: No significant abnormality. No calcified gallstones. No gallbladder distention or wall edema. No intra- or extrahepatic biliary ductal dilation. PANCREAS: No significant abnormality. No focal cystic mass. SPLEEN: No significant abnormality. Normal size without focal cystic or solid mass. ADRENALS: Left adrenal nodule measuring approximately 1.3 cm with Hounsfield attenuation of 12. KIDNEYS AND URETERS: There is a hyperdense renal mass on the right which is new compared to the prior examination measuring 4.3 cm. Right renal atrophy. Right renal cysts are present for which no follow-up is indicated. No hydronephrosis. STOMACH AND BOWEL: There is colonic diverticulosis. There is wall thickening in the sigmoid colon suggesting acute diverticulitis. No discrete pericolonic abscess is present and there is no evidence of perforation. No stomach or bowel distention. PELVIS: APPENDIX: No evidence of acute appendicitis. BLADDER: No significant abnormality. REPRODUCTIVE: Status post hysterectomy. ABDOMEN and PELVIS: INTRAPERITONEAL SPACE: Mild stranding in the left lower quadrant mesentery. No free air or free fluid. BONES/JOINTS: L1 superior endplate mild compression fracture with less than 25% vertebral body height loss and mild compression fracture of T11 at the superior endplate with less than 25% vertebral body height loss. No suspicious lytic or blastic abnormality. SOFT TISSUES: No significant abnormality. No discrete abdominal or pelvic wall hernia. VASCULATURE: Atherosclerosis of the aorta and its branch vessels. LYMPH NODES: No significant abnormality. No enlarged lymph nodes. CT/Abdomen/Pelvis without Cont IMPRESSION: 1. Findings suggestive of acute uncomplicated sigmoid diverticulitis. 2. There is a hyperdense renal mass on the right which is new compared to the prior examination measuring 4.3 cm. ACR White Paper guidelines (Herts, et al. JACR 2018; 15(2):264-273) recommend MRI or CT without and with intravenous contrast. 3. Left adrenal nodule measuring approximately 1.3 cm with Hounsfield attenuation of 12. 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 ACR White Paper guidelines (Maria-Rousseau, et al. JACR 2017; 14(8):9854-1597) suggest no imaging follow-up is necessary. ACR White Paper guidelines (Maria-Rousseau, et al. JACR 2017; 14(8):2735-0785) suggest no imaging follow-up is necessary. Consider biochemical assays to determine functional status and exclude pheochromocytoma if biopsy/resection is planned. 4. L1 superior endplate mild compression fracture with less than 25% vertebral body height loss and mild compression fracture of T11 at the superior endplate with less than 25% vertebral body height loss. These are age indeterminate. Electronically Signed: Pedro Diaz DO at 23:18 EST ,
[2024-06-06 22:00] VITALS: BP 131/60; PULSE 75; RESP 28; O2SAT 95
[2024-06-06 22:39] VITALS: BP 129/62; PULSE 67; RESP 23; TEMP 36.6; O2SAT 93
[2024-06-06 23:46] LABS: Alcohol, Blood (Medical)-Serum < 3.0 mg/dL
[2024-06-06 23:47] VITALS: BMI 24.8
[2024-06-07] VITALS (8 sets, daily range): BP systolic 121–143; BP diastolic 47–52; PULSE 68–91; RESP 16–20; TEMP 36.3–36.7; O2SAT 94–99; BMI 26.1
--- NOTE | 2024-06-07 00:11 | MRI_ITS ---
STUDY: MRI ABDOMEN WITH AND WITHOUT CONTRAST REASON FOR EXAM: Female, 88 years old. 4.3 cm Right Renal Mass noted on CT. TECHNIQUE: Standardized fat and water weighted pulse sequences were obtained in all 3 orthogonal planes post contrast administration. IV 13cc clariscan was administered for the contrast portion of the examination. COMPARISON: CT 06/06/2024 FINDINGS: The visualized lung bases are unremarkable. The visualized portions of the heart are within normal limits. Normal liver. Normal gallbladder and extrahepatic biliary system. Normal spleen. Normal pancreas. There is symmetric enlargement of the adrenal glands suggesting adrenal hyperplasia. There is moderate cortical atrophy of the right kidney, consistent with chronic medical renal disease. There are multiple round T2 hyperintense masses of the right kidney consistent with cysts. A 1.5 cm lesion in the posterior cortex of the upper pole the right kidney is hyperintense on T1-weighted images. A 4 cm lesion in the anterior aspect of the midsection of right kidney is hyperintense on T1-weighted images and corresponds to the mass of increased attenuation seen on CT. None of these lesions demonstrates contrast enhancement consistent with hyperdense (hemorrhagic or proteinaceous) cysts (Bosniak type II). Normal left kidney. Normal visualized stomach. Normal small intestine. Normal colon. There is non-visualization of the appendix. Normal abdominal aorta. Normal inferior vena cava. Normal retroperitoneum. Normal abdominal wall. Normal osseous structures. 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 Electronically Signed: Yosi Price MD at 13:47 EST ,
[2024-06-07 00:30] LABS: Vitamin B12 528 pg/mL (211-911)
[2024-06-07 00:47] LABS: Bedside Glucose 108 mg/dL (74-106)
[2024-06-07] MEDS: KCL 40mEq in 0.9% NS 40 MEQ/1,000 ML IV.SOLN 75 MEQ IV (00:52)
[2024-06-07] MEDS: Heparin Injection (Vial) 5,000 UNIT/ML VIAL 5000 UNIT SC ×3 (00:57→21:41)
[2024-06-07 02:04] LABS: Bacteria 0 SEEN /hpf (None Seen); Mucous, Urine 0 SEEN /hpf (<or=2+); Red Blood Cells-Urine 0 SEEN /hpf (0-5); White Blood Cells 0 SEEN /hpf (0-5)
[2024-06-07 02:10] LABS: Color, Urine Yellow (Yellow); Glucose, Dipstick Normal (Normal); Ketone-Dipstick Negative (Negative); Leukocyte Esterase-Dipstick Negative /ul (Negative); Nitrite-Dipstick Negative (Negative); Occult Blood-Urine Negative /ul (Negative); Protein-Dipstick Negative (Negative); Specific Gravity, Urine 1.015 (1.002-1.030); Urine Bilirubin Dipstick Negative (Negative); Urine Clarity Clear (Clear); Urine Urobilinogen Normal (Normal)
[2024-06-07 02:15] LABS: Urine Chloride 113 mmol/L (Not Establ.); Urine Sodium 120 mmol/L (Not Establ.)
[2024-06-07] MEDS: Ceftriaxone 1 GM/50 ML BAG IV ×2 (02:16→21:40)
[2024-06-07 02:17] LABS: Squamous Epithelial Cells - UA 0-5 SEEN /hpf (5-10)
[2024-06-07 02:28] LABS: Amphetamine Urine VISTA NEGATIVE (<1000 ng/mL); Barbiturate Urine VISTA NEGATIVE (< 200 ng/mL); Benzodiazepine Urine VISTA NEGATIVE (< 200 ng/mL); Cocaine Urine VISTA NEGATIVE (< 300 ng/mL); Ecstacy Urine VISTA NEGATIVE (< 500 ng/mL); Methadone Urine VISTA NEGATIVE (< 300 ng/mL); PCP Urine VISTA NEGATIVE (< 25 ng/mL); THC Urine VISTA NEGATIVE (< 50 ng/mL); Vista UDS pH Range 6
[2024-06-07 02:45] LABS: Osmolality, Urine 327 mOsm/KG
[2024-06-07] MEDS: metroNIDAZOLE 500 MG/100 ML BAG 100 MG IV ×3 (03:32→22:51)
[2024-06-07 06:16] LABS: Absolute Lymphocyte Count 0.95 X10^3/uL (0.83-4.51); Absolute Neutrophil Count 3.7 X10^3/uL (2.0-7.7); Basophil# 0.03 X10^3/uL; Basophil% 0.5 % (0-1); Eosinophil# 0.19 X10^3/uL; Eosinophils% 3.4 % (0-5); Hematocrit 32.7 % (37-47); Hemoglobin 10.4 g/dL (12.0-15.0); Lymphocyte # 0.95 X10^3/ul (0.83-4.51); Lymphocyte % 17.2 % (19-41); Mean Corp Hgb Conc 31.8 g/dL (32-36); Mean Corpuscular Hgb 31.1 pg (27.0-32.0); Mean Corpuscular Volume 97.9 fL (81-99); Mean Platelet Vol. 10.5 fl (6.2-12.0); Monocyte# 0.66 X10^3/uL; NRBC Flagged by Analyzer 0 % (0-5); Neutrophil # 3.66 X10^3/uL (2.7-7.7); Neutrophil % 66.5 % (47-70); Platelet Count 137 K/mm3 (150-450); RBC Distribution Width CV 13.2 % (11.6-14.6); RBC Distribution Width SD 47.8 fl (35.1-43.9); Red Blood Count 3.34 M/mm3 (4.2-5.4); White Blood Count 5.5 K/mm3 (4.4-11.0)
[2024-06-07 06:54] LABS: ALB/GLOB Ratio 0.9 RATIO (0.9-2.4); AST(SGOT) 19 U/L (15-37); Alanine Aminotransfer ALT/SGPT 16 U/L (13-56); Alkaline Phosphatase 88 U/L (45-117); Anion Gap 6 (5-15); BUN 33 mg/dL (7-18); BUN/Creat Ratio 26.2 RATIO (10-20); Calcium,Total 7.6 mg/dL (8.5-10.1); Chloride 104 mmol/L (98-107); Cholesterol 170 mg/dL (200); Creatinine, Serum 1.26 mg/dL (0.55-1.02); EST Glomerular Filtration Rate 43 mL/min (>60); Est Glom Filt Rate - Afr Amer 52 mL/min (>60); Globulin 3.4 g/dL (2.2-4.2); Glucose 105 mg/dL (74-106); High Density Lipoprotein 36 mg/dL; Phosphorus 4.3 mg/dL (2.5-4.9); Potassium 3.9 mmol/L (3.5-5.1); Protein, Total 6.4 g/dL (6.4-8.2); Sodium Level 144 mmol/L (136-145); Triglycerides 178 mg/dL; Very Low Density Lipoprotein 36 mg/dL (5-40)
[2024-06-07] MEDS: Albuterol 2.5 MG/3 ML VIAL.NEB. INHALATION ×3 (07:10→19:00)
[2024-06-07] MEDS: Budesonide Respules 0.5 MG/2 ML AMPUL.NEB. 0.25 MG INHALATION ×2 (07:10→19:00)
[2024-06-07 07:12] LABS: Bedside Glucose 99 mg/dL (74-106)
[2024-06-07 07:44] LABS: Magnesium 2.1 mg/dL (1.6-2.6)
[2024-06-07 07:58] LABS: Phosphorus 4.4 mg/dL (2.5-4.9)
--- NOTE | 2024-06-07 07:59 | PN.HOSP_ITS ---
Reason for Visit Reason for Visit: Diagnoses Hypomagnesemia (06/06/24) Hypocalcemia (06/06/24) Dehydration (06/06/24) Hypokalemia (06/06/24) Metabolic encephalopathy (06/06/24) Diverticulitis of intestine, part unspecified, without perforation or abscess without bleeding (06/06/24) Other specified disorders of kidney and ureter (06/06/24) Diarrhea, unspecified (06/06/24) Auditory hallucinations (06/06/24) Adverse effect of unspecified drugs, medicaments and biological substances, initial encounter (06/06/24) Objective Data Objective Data Vital Signs: Vital Signs Temp Pulse Resp BP Pulse Ox O2 Del Method O2 Flow Rate 98.0 F 75 18 143/47 H 99 Nasal Cannula 4 06/07/24 03:00 06/07/24 03:00 06/07/24 03:00 06/07/24 03:00 06/07/24 03:00 06/07/24 05:34 06/07/24 05:34 Oxygen Flow Rate (L/min) 4 Oxygen Delivery Method Nasal Cannula Weight: 136 lb 0.403 oz Body Mass Index (BMI) 24.8 Intake & Output: Intake and Output for Last 24 Hours 06/05/24 06/06/24 06/07/24 23:59 23:59 23:59 Intake Total 120 / 420 850 / 850 Balance 120 / 420 850 / 850 Lab / Micro Data 06/07/24 05:46 06/07/24 05:46 Labs: Laboratory Results - last 24 hr 06/06/24 18:39: WBC 6.4, RBC 3.42 L, Hgb 10.9 L, Hct 32.7 L, MCV 95.6, MCH 31.9, MCHC 33.3, RDW Std Deviation 46.8 H, RDW Coeff of Ha 13.3, Plt Count 164, MPV 10.4, Immature Gran % (Auto) 0.300, Neut % (Auto) 63.6, Lymph % (Auto) 21.4, M joan % (Auto) 10.6 H, Eos % (Auto) 3.6, Baso % (Auto) 0.5, Absolute Neuts (auto) 4.1, Absolute Lymphs (auto) 1.38, Nucleated RBC % 0, Sodium 143, Potassium 3.2 L , Chloride 101, Carbon Dioxide 33.0 H, Anion Gap 9, BUN 42 H, Creatinine 1.66 H, Est GFR (MDRD) Af Amer 38 L, Est GFR (MDRD) Non-Af 31 L, BUN/Creatinine Ratio 25.3 H, Glucose 181 H, Hemoglobin A1c 5.9 H, Serum Osmolality 328 H, Calcium 6.8 L, Magnesium 0.5 L*, Total Bilirubin 0.60, Direct Bilirubin 0.17, AST 20, ALT 17, Alkaline Phosphatase 92, Total Protein 6.7, Albumin 3.3, Globulin 3.4, Folate 18.80, TSH 1.820 06/06/24 20:01: Ionized Calcium 0.87 L 06/06/24 23:08: Vitamin B12 528, Ethyl Alcohol < 3.0 06/07/24 00:23: POC Glucose 108 H 06/07/24 01:30: Urine Color Yellow, Urine Clarity Clear, Urine pH 8.0, Ur Specific [place] 1.015, Urine Protein Negative, Urine Glucose (UA) Normal, Urine Ketones Negative, Urine Occult Blood Negative, Urine Nitrite Negative, Urine Bilirubin Negative, Urine Urobilinogen Normal, Ur Leukocyte Esterase Negative, Urine RBC 0 SEEN, Urine WBC 0 SEEN, Ur Squamous Epith Cells 0-5 SEEN, Urine Bacteria 0 SEEN, Urine Mucus 0 SEEN, Urine Osmolality 327, Ur Random Sodium 120, Urine Chloride 113, Urine Opiates Screen NEGATIVE, Urine Methadone Screen NEGATIVE, Ur Barbiturates Screen NEGATIVE, Ur Phencyclidine Scrn NEGATIVE, Ur Amphetamines Screen NEGATIVE, MDMA (Ecstasy) Screen NEGATIVE, U Benzodiazepines Scrn NEGATIVE, Urine Cocaine Screen NEGATIVE, U Cannabinoids Screen NEGATIVE, Ur Drug Screen Comment 06/07/24 05:46: WBC 5.5, RBC 3.34 L, Hgb 10.4 L, Hct 32.7 L, MCV 97.9, MCH 31.1, MCHC 31.8 L, RDW Std Deviation 47.8 H, RDW Coeff of Ha 13.2, Plt Count 137 L, MPV 10.5, Immature Gran % (Auto) 0.400, Neut % (Auto) 66.5, Lymph % (Auto) 17.2 L, [place] % (Auto) 12.0 H, Eos % (Auto) 3.4, Baso % (Auto) 0.5, Absolute Neuts (auto) 3.7, Absolute Lymphs (auto) 0.95, Nucleated RBC % 0, Sodium 144, Potassium 3.9, Chloride 104, Carbon Dioxide 34.0 H, Anion Gap 6, BUN 33 H, C reatinine 1.26 H, Estim Creat Clear Calc 27.70, Est GFR (MDRD) Af Amer 52 L, Est GFR (MDRD) Non-Af 43 L, BUN/Creatinine Ratio 26.2 H, Glucose 105, Calcium 7.6 L, Phosphorus 4.3 06/07/24 05:46: Phosphorus 4.4, Magnesium 2.1, Total Bilirubin 0.40, AST 19, ALT 16, Alkaline Phosphatase 88, Total Protein 6.4, Albumin 3.0 L, Globulin 3.4, Albumin/Globulin Ratio 0.9, Triglycerides 178, Cholesterol 170, LDL Cholesterol 98, VLDL Cholesterol 36, HDL Cholesterol 36 L 06/07/24 06:39: POC Glucose 99 Radiography Diagnostic Testing: Radiology Impression Brain CT 06/06/24 19:01 IMPRESSION: Chronic ischemic changes. No evidence of acute intracranial pathology. Electronically Signed: Pedro Diaz DO at 20:44 EST , Abdomen/Pelvis CT 06/06/24 21:46 IMPRESSION: 1. Findings suggestive of acute uncomplicated sigmoid diverticulitis. 2. There is a hyperdense renal mass on the right which is new compared to the prior examination measuring 4.3 cm. ACR White Paper guidelines (Herts, et al. JACR 2018; 15(2):264-273) recommend MRI or CT without and with intravenous contrast. 3. Left adrenal nodule measuring approximately 1.3 cm with Hounsfield attenuation of 12. 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 ACR White Paper guidelines (Maria-Rousseau, et al. JACR 2017; 14(8):7345-9585) suggest no imaging follow-up is necessary. ACR White Paper guidelines (Maria-Rousseau, et al. JACR 2017; 14(8):7379-1073) suggest no imaging follow-up is necessary. Consider biochemical assays to determine functional status and exclude pheochromocytoma if biopsy/resection is planned. 4. L1 superior endplate mild compression fracture with less than 25% vertebral body height loss and mild compression fracture of T11 at the superior endplate with less than 25% vertebral body height loss. These are age indeterminate. Electronically Signed: Pedro Diaz DO at 23:18 EST , ADDENDUM: 06/07/24 0006 IMPRESSION: 1. Findings suggestive of acute uncomplicated sigmoid diverticulitis. 2. There is a hyperdense renal mass on the right which is new compared to the prior examination measuring 4.3 cm. ACR White Paper guidelines (Herts, et al. JACR 2018; 15(2):264-273) recommend MRI or CT without and with intravenous contrast. 3. Left adrenal nodule measuring approximately 1.3 cm with Hounsfield attenuation of 12. 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 ACR White Paper guidelines (Maria-Rousseau, et al. JACR 2017; 14(8):5200-2477) suggest no imaging follow-up is necessary. ACR White Paper guidelines (Maria-Rousseau, et al. JACR 2017; 14(8):7293-2104) suggest no imaging follow-up is necessary. Consider biochemical assays to determine functional status and exclude pheochromocytoma if biopsy/resection is planned. 4. L1 superior endplate mild compression fracture with less than 25% vertebral body height loss and mild compression fracture of T11 at the superior endplate with less than 25% vertebral body height loss. These are age indeterminate. N.B. : SPARKLE ROMERO RN, confirmed on 06/06/2024 23:59:19 (ET) that the healthcare facility has received the radiology report. Electronically Signed: Pedro Diaz DO at 23:18 EST , Physical Exam Narrative Seen and examined. Patient was admitted for abnormal severe critical hypomagnesemia. She also had hypocalcemia. She was also seeing hallucination which is new as per the daughter probably related to dehydration or abnormal electrolytes. She is on diuretic furosemide 40 mg twice daily and spironolactone for chronic leg swelling Discussed with the patient's daughter. She also has history of right kidney cyst and follows urologist in [place]. Physical exam General: Alert, Oriented x3, Cooperative HEENT: Atraumatic, PERRLA, EOMI, Normocephalic Oral: Oral mucosa dry. No Gingival or Mucosal Lesions/ Ulcerations Neck: Supple, No JVD, Negative Carotid Bruits Chest wall/Lungs: Air entry diminished in bilateral lung bases. No crepitation/rhonchi Cardiovascular: Regular rate, Regular Rhythm, Normal S1, Normal S2, No M/G/R Abdomen: Bowel Sounds Present, Soft, Non Tender, Non-Distended : No dysuria. No renal angle tenderness. No suprapubic tenderness. Extremities: No edema, Capillary Refill Less than 3 Seconds Skin: No rashes, No breakdown Musculoskeletal: No Tenderness to Palpation of Joints or Extremities Neurological: Cranial nerves II-XII grossly intact, DTR 2+/4. No acute focal neurological deficit. Psych/Mental Status: Flat affect Assessment & Plan Assessment/Plan (1) Hypomagnesemia: (2) Hypocalcemia: (3) Acute hypokalemia: (4) Dehydration: (5) Diarrhea: QUALIFIERS: Diarrhea type: unspecified type Qualified Code(s): R 19.7 - Diarrhea, unspecified (6) Acute diverticulitis: (7) Renal mass, right: (8) Auditory hallucination: (9) Metabolic encephalopathy: (10) Adverse drug reaction: QUALIFIERS: Encounter type: initial encounter Qualified Code(s): T50.905A - Adverse effect of unspecified drugs, medicaments and biological substances, initial encounter PLAN: Plan 88-year-old woman was admitted with abnormal lab showing severe hypomagnesemia. Patient was seen by her doctor for auditory hallucinations, blurry vision bilaterally for last several days. 1. Severe hypomagnesemia of 0.5 mg/dL present on admission, probably due to diuretics- Admit to PCU. Give IV magnesium sulfate and then recheck level in a.m. to ensure improvement. 06/07: Electrolytes were replaced. Repeat magnesium is 2.1. Serum phosphorus 4.1. Probably due to diuretics 2. Severe hypocalcemia of 6.8 mg/dL present on admission complicating #1 - Give supplemental IV calcium gluconate 06/06 1 repeat calcium shows low 7.6 g%. IV calcium gluconate ordered. 3. Hypokalemia of 3.2 mmol/L present on admission compounding #1 & #2 - Give supplemental IV and oral KCl and then recheck BMP in a.m. to follow trend. 06/06: Hypokalemia resolved. Repeat potassium 3.9. 4. BERNARDO with elevated BUN/creatinine ratio of 25.3 present on admission in the setting of known CKD; stage IIIb likely due to adverse drug reaction to Lasix: Admitting BUNs/creatinine 42/1.66. Bicarb high 34.0 suggestive of metabolic alkalosis due to Lasix. Baseline creatinine 1.1-1.29. 06/07: Repeat BUN/creatinine 33/1.26. Continue holding Lasix. 5. CT positive for Acute Diverticulitis with Nonbloody diarrhea. Incidentally noted new ~4.3 cm Right Renal Mass and radiologist recommending MRI with and without contrast to further delineate lesion - Place on enteric precautions and check stool studies to evaluate for potential underlying infectious etiology. Start IV Rocephin and IV Flagyl to cover gram-negatives and anaerobes. Probiotics is ordered. 06/07: MRI abdomen shows 2 kidney cysts, Bosniak class II cyst as described. One 1.5 cm in upper pole of right kidney another 4 cm lesion in anterior aspect of midsection of right kidney. As per the daughter she follows urologist in [place]. Her kidney cyst was about 2 cm in 2021. MRI report copy was given to the patient and advised to follow-up urologist as an outpatient. 6. 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 06/07 metabolic encephalopathy resolved 7. Chronic insomnia; on as needed nightly Ambien - Hold Ambien with possible adverse drug reaction contributing to #6. 8. Essential hypertension; on Coreg and Spironolactone - Hold Spironolactone due to relative volume depletion but continue Coreg as previous. Give hydralazine IV as needed for systolic blood pressure greater than 160 mmHg. 9. Hyperlipidemia; on atorvastatin - Resume statin and lipid profile within normal limit except HDL 36. 10. DM-2; of unknown control - ADA diet. FSBS q. AC/HS plus SSI. HgbA1c 5.9%. 11. chronic diastolic CHF; with preserved LVEF on Lasix plus supplemental KCl BID - Hold Lasix in light of volume depletion. Patient has no signs of volume overload at this time. 12. Former tobacco abuse (quit ~2021); with subsequent COPD and chronic hypoxic respiratory failure; on 2L NC - Stable with no evidence of acute flare. Continue scheduled and as needed inhalers as previous. 13. History of bilateral carotid artery stenosis with previous TIA (2018); s/p carotid angioplasty on Plavix - Maintain Plavix as before. If auditory hallucinations persist and spite of correction of electrolyte disturbances and volume depletion we will obtain MRI of the brain. 14. Multiple other comorbidities include chronic SOPHIE, PAD with claudication, RLS on pramipexole, chronic migraine headache, depression, GERD and osteoarthritis with right lumbar radiculopathy DVT prophylaxis - Heparin 5,000 U sq. BID plus SCDs. Charges/Coding Visit Charges Inpatient E&M: 02367 Subs Hosp L2
[2024-06-07] MEDS: ALPRAZolam 0.5 MG Tablet PO (08:12)
[2024-06-07] MEDS: Lactobacillis Acidophilus 1 CAP PO ×4 (09:55→21:41)
[2024-06-07] MEDS: Iron Polysaccharide Complex 150 MG CAPSULE PO (09:55)
[2024-06-07] MEDS: DULoxetine Hcl 60 MG Capsule PO (09:55)
[2024-06-07] MEDS: Nitrofurantoin Macrocrystals 100 MG Capsule PO (09:55)
[2024-06-07] MEDS: Cholecalciferol (Vit D3) 125 MCG CAPSULE (5,000 UNITS) PO (09:55)
[2024-06-07] MEDS: Ascorbic Acid 500 MG Tablet 1000 MG PO ×2 (09:55→16:57)
[2024-06-07] MEDS: Carvedilol 12.5 MG Tablet PO ×2 (09:55→16:55)
[2024-06-07] MEDS: Pantoprazole Sodium 40 MG Tablet PO ×2 (09:55→21:42)
[2024-06-07] MEDS: Clopidogrel Bisulfate 75 MG Tablet PO (09:55)
--- NOTE | 2024-06-07 10:50 | CASEMGMT ---
RN CM Face to Face with patient for initial transition planning/care coordination assessment. RN CM introduced self and role at [facility]. Patient lying in bed, alert and oriented. Patient willing to participate in assessment and is able to answer all questions appropriately. Care providers, pharmacy, and demographics verified. Strata: 3 PCP:Josue WOOD MODEL MAKER Specialists: Audrey Delvalle; community outreach coordinator; Donna, geothermal operating engineer; Friend, GI Preferred Pharmacy: [facility] Retail Insurance: MMO [facility] Prescription Benefit: yes Living Will/HPOA: yes, daughter Dora Goodman LNOK: son, daughter Living Arrangements: Patient lives alone in a single story home with ramp to enter the home. Patient is independent at home. Transportation: self, son DME/HHC: Patient has shower chair, raised toilet, grab bars, hand held shower, rollator, nebulizer, pulse ox, and home oxygen through [employer] with portability. Patient has had [facility] in the past. Patient has been to TCU. Patient states she is active with [facility] in [place]. Patient wishes to discharge home, denies need for home health at this time. Patient states he has no further needs or concerns at this time. CM to follow for discharge planning needs that may arise. Disposition Plan: Patient to discharge home with family support and follow-up plans in place. Cynthia BISHOP, RN, CM
[2024-06-07 11:34] LABS: Bedside Glucose 93 mg/dL (74-106)
--- NOTE | 2024-06-07 14:41 | SP.MBSS_ITS ---
Modified Barium Swallow Patient Information Study Date: 06/07/24 Study Time: 13:30 Direct Billable Minutes: 121 Total Minutes procedure & reportin Diagnosis: Dysphagia R13.10, GERD K21.9 Referring Physician: Juan Esteves Reason for Referral: Objectively assess swallow function, assess risk for aspiration, and determine recommendations for least restrictive diet textures and compensatory strategies to improve safety of swallow. Medical History: PMH from physician H&P: Essential hypertension; on Coreg and Spironolactone, hyperlipidemia; on atorvastatin, DM-2; of unknown control, history of chronic diastolic CHF; with preserved LVEF on Lasix plus supplemental KCl BID, former tobacco abuse (quit ~2021); with subsequent COPD, chronic hypoxic respiratory failure; on 2L NC continuous, history of bilateral carotid artery stenosis with previous TIA (2018); s/p carotid angioplasty on Plavix, PAD; with claudication, CKD; stage IIIb, history of renal calculi, history of renal cyst, SOPHIE, history of diverticulitis, RLS; on pramipexole, history of depression; on amitriptyline and duloxetine, chronic insomnia; on as needed nightly Ambien, history of migraine headaches, history of severe GERD; on Protonix BID, history of thyroid surgery, history of total hysterectomy, history of basal cell carcinoma on forehead; s/p excision, history of vertigo, listed allergy to lisinopril (edema), listed allergy to aspirin (upset stomach), OA; with history of Right lumbar radiculopathy and recently diagnosed UTI with patient started on empiric Nitrofurantoin ~2 days ago. Pt presented to [facility] ED w/ auditory hallucinations and diarrhea. She was admitted for management of hallucinations, diarrhea, acute diverticulitis, hypomagnesemia, hypocalcemia, hypokalemia, amongst several other comorbidities, including finding of a right renal mass. Pt was made NPO and referred for ST consult by RN after patient reported concerns to RN for long history of swallowing difficulty. Pt reported difficulty consuming foods such as burgers and chicken wings w/ sensation of food getting caught in her throat, choking, and vomiting. She also feels she has bad reflux w/ carbonated beverages. Pt participated in BSE 06/07/2024 w/ recommendation for Easy to Chew textures / Thin liquids w/ aspiration precautions and direct supervision for meals w/ plan for MBSS this afternoon to further assess concerns for pharyngeal dysphagia w/ patient reporting food getting caught in her throat and pt reporting choking episodes. Pt last met w/ OP GI w/ INDIRA Cox for visit on 04/30/2024. Progress note included... EGD 04.19.24: - Abnormal esophageal motility, consistent with aperistalsis. Dilated. - Small hiatal hernia. - Gastric mucosal variant. Biopsied. - A few duodenal polyps. Resected and retrieved. O.V. 05.01.24; Pt continues to have episodes of choking and vomiting. Since her EGD she has had two episodes of choking. She has not been able to identify foods that trigger it but it is sometimes meat. She has had two episodes of heartburn since her EGD. She has been taking pantopraozle 40 mg just once a day. Per pt, she is planned for an upcoming botox injection w/ Dr. Real to improve esophageal motility; however, last office visit recommended PPI twice a day, low dose TCA, Consider manometry, and f/u in 3 months. Current Diet Ordered: Easy to Chew textures / Thin liquids Dentition: Lower Dentures (Upper implants; however, no upper dentition in place) and Missing Teeth Mental Status: WNL Respiratory Status: Oxygenating on 2L/M nasal cannula Penetration-Aspiration Scale Penetration-Aspiration Scale: OBJECTIVE ASSESSMENT OF SWALLOW FUNCTION (QUANTITATIVE ? PER TRIAL): PENETRATION / ASPIRATION SCALE (ROBBINS): 1 = does not enter airway 2 = enters airway/above vocal folds/ejected 3 = enters airway/above vocal folds/not ejected 4 = enters airway/contacts vocal folds/ejected 5 = enters airway/contacts vocal folds/not ejected 6 = enters airway/below vocal folds/ejected 7 = enters airway/below vocal folds/not ejected despite effort 8 = enters airway/below vocal folds/no effort VIDEOFLOROSCOPIC SCALE SCORE (ROBBINS): Grade I = aspiration of material that has penetrated into the laryngeal vestibule, intact cough reflex Grade II = aspiration < 10 % of the bolus, intact cough reflex Grade III = aspiration of < 10 % of the bolus, reduced cough reflex or aspiration of > 10 % of the bolus, intact cough reflex Grade IV = aspiration of > 10 % of the bolus, reduced cough reflex Penetration-Aspiration Scale Score Thin Liquid via teaspoon: Result: 2= enter airway/above vocal folds/ejected Thin Liquid via teaspoon Trial 2: Result: 2= enter airway/above vocal folds/ejected Thin Liquid via sequential sips: cup: Result: 3= enters airways/above vocal folds/not ejected Comment: Esophageal screen - Tortuous lower esophagus. Retention of barium in lower esophagus w/ retrograde flow to the middle esophagus. Pudding via teaspoon: Result: 1= does not enter airway Comment: Esophageal screen - Retention of barium in lower esophagus w/ min retrograde flow. Thin Liquid via single sip: straw: Result: 3= enters airways/above vocal folds/not ejected Comment: Esophageal screen - Retention of barium in lower esophagus w/ retrograde flow to the middle esophagus. 1/2 Cookie: Result: 1= does not enter airway Comment: Esophageal screen - Retention of barium coated cookie throughout the esophagus w/ little to no emptying. Un-chewed pieces of cookie X2 in esophagus. Thin Liquid via sequential sips:straw: Result: 2= enter airway/above vocal folds/ejected Comment: Esophageal screen - Retention of barium in lower esophagus w/ retrograde flow to the middle esophagus; however, this liquid wash cleared majority of cookie retention in previous trial through the LES. Oral Phase Labial Seal: Interlabial escape, no progression to anterior lip Tongue Control During Bolus Hold: Posterior escape of greater than half of bolus Bolus Preparation/Mastication: Disorganized chewing/mashing with solid pieces of bolus unchewed Bolus Transport/Lingual Motion: Delayed initiation of tongue motion Oral Residue: Residue collection on oral structures Pharyngeal Phase Initiation of Pharyngeal Swallow: Bolus head in pyriforms Soft Palate Elevation: Trace column of contrast/air between soft palate and pharyngeal wall Laryngeal Elevation: Partial superior movement thyroid cart/partial apprx aryt- epig petiole Anterior Hyoid Excursion: Partial anterior movement Epiglottic Movement: Complete inversion Laryngeal Vestibule Closure at Height of Swallow: Incomplete; narrow column of air/contrast in laryngeal vestibule Pharyngeal Stripping Wave: Present - diminished Pharyngoesophageal Segment Opening: Complete distension and complete duration; no obstruction of flow Tongue Base Retraction: Wide column of contrast between tongue base & post. pharyngeal wall Pharyngeal Residue: Collection of residue within or on pharyngeal structures Esophageal Phase Esophageal Clearance: Esophageal retention w/ retrograde flow below pharyngoesophageal seg. Diagnosis/Impression Diagnosis: Mild-moderate oropharyngeal dysphagia R13.12; Esophageal dysphagia R13.14 Impression: The oral phase is primarily marked by... -Decreased mastication. One large and one small piece of un-chewed cookie. 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 Continue Easy to Chew (IDDSI Level 7) textures. -Decreased bolus control w/ >1/2 thin liquid bolus in pharynx prior to swallow onset w/ sequential sips. The pharyngeal phase is primarily marked by... -Delayed swallow onset. -Decreased pharyngeal contraction w/ trace-mild pharyngeal residue due to decreased TB retraction and pharyngeal stripping wave. -Decreased airway closure during the swallow due to decreased anterior hyoid excursion and laryngeal elevation. Consistent laryngeal penetration of thin liquids, which didn't fully eject (trace residue in laryngeal vestibule). No aspiration was observed. The esophageal phase is primarily marked by... -Tortuous esophagus. -Retention of pudding and liquids in lower esophagus w/ retrograde flow. -Retention of cookie throughout esophagus, which mostly cleared when provided thin liquid wash. Image 1. Esophageal screen at the start of thin liquid wash for cookie. Tortuous esophagus. Un-chewed cookie present in lower esophagus, which this liquid wash did help to clear through the LES. Recommendations Diet: Regular Textures (EASY TO CHEW TEXTURES - IDDSI Level 7) and Thin Liquids Compensatory Strategies: Small Bites (CHEW THOROUGHLY), Small Sips, Slow Rate, Alternate bites/solids and sips/liquids (1:1 RATIO) and Sitting upright (DURING AND 60 MIN AFTER ORAL INTAKE) Supervision: 1:1 Close Supervision (Direct Supervision During Meals) Recommend Repeat Modified Barium Swallow: TBD Need for Skilled Speech Therapy Services: Yes Comment: -Train the patient in use of strategies to decrease risk for choking, aspiration, and reflux aspiration. -Ongoing assessment of diet tolerance of recommended textures. Recommend downgrade to softer textures if demonstrating inadequate mastication at meals or if pt has increased s/s of reflux/regurgitation. -Train the patient in oropharyngeal exercise program to improve bolus control, tongue base retraction, swallow onset, airway closure, and pharyngeal contraction (lingual resistance, [place], [place], Effortful). Recommended Referrals: GI Consult (Continue to follow w/ OP GI) Education Completed: 1. Described result of evaluation., 2. Pt understands evaluation & agrees with goals and treatment plan. and 7. Pt requires further education on strategies & risks. Status Active ST Patient: Active Contact Information [facility] Speech Therapy:: Unique Musa M.A. CCC-MOBILE HEALTH VEHICLE OPERATOR? Speech-Language Pathologist?? [facility] [address] [place] [address]? [email or web address]?? [phone]
[2024-06-07] MEDS: Calcium Gluconate IV 2 GM in 0.9% Normal Saline (100mL Bag) 100 ML IV (16:54)
[2024-06-07] MEDS: Potassium Chloride Oral Tablet 20 MEQ 40 MEQ PO (16:55)
[2024-06-07 17:13] LABS: Bedside Glucose 131 mg/dL (74-106)
[2024-06-07] MEDS: Pramipexole Di-HCl 0.5 MG Tablet 1.5 MG PO (21:41)
[2024-06-07] MEDS: Atorvastatin Calcium 40 MG Tablet PO (21:41)
[2024-06-07] MEDS: Amitriptyline 10 MG Tablet PO (21:41)
[2024-06-07 22:09] LABS: Bedside Glucose 112 mg/dL (74-106)
[2024-06-07] MEDS: MELATONIN 3 MG TABLET PO (22:57)
[2024-06-08 03:07] VITALS: BP 116/55; PULSE 77; RESP 16; TEMP 36.3; O2SAT 98
[2024-06-08 04:07] VITALS: BMI 27.0
[2024-06-08] MEDS: metroNIDAZOLE 500 MG/100 ML BAG 100 MG IV (06:18)
[2024-06-08 06:40] LABS: Bedside Glucose 92 mg/dL (74-106)
[2024-06-08 06:45] VITALS: PULSE 78; RESP 20; O2SAT 95
[2024-06-08] MEDS: Albuterol 2.5 MG/3 ML VIAL.NEB. INHALATION (06:45)
[2024-06-08] MEDS: Budesonide Respules 0.5 MG/2 ML AMPUL.NEB. 0.25 MG INHALATION (06:45)
[2024-06-08 08:25] LABS: Absolute Lymphocyte Count 1.03 X10^3/uL (0.83-4.51); Absolute Neutrophil Count 4.5 X10^3/uL (2.0-7.7); Basophil# 0.02 X10^3/uL; Basophil% 0.3 % (0-1); Eosinophil# 0.23 X10^3/uL; Eosinophils% 3.6 % (0-5); Hematocrit 31.9 % (37-47); Lymphocyte # 1.03 X10^3/ul (0.83-4.51); Mean Corp Hgb Conc 31.3 g/dL (32-36); Mean Corpuscular Hgb 31.2 pg (27.0-32.0); Mean Corpuscular Volume 99.4 fL (81-99); Mean Platelet Vol. 10.7 fl (6.2-12.0); Monocyte# 0.59 X10^3/uL; Monocyte% 9.2 % (0-10); NRBC Flagged by Analyzer 0 % (0-5); Neutrophil # 4.53 X10^3/uL (2.7-7.7); Neutrophil % 70.6 % (47-70); Platelet Count 152 K/mm3 (150-450); RBC Distribution Width CV 13.4 % (11.6-14.6); RBC Distribution Width SD 49.5 fl (35.1-43.9); Red Blood Count 3.21 M/mm3 (4.2-5.4); White Blood Count 6.4 K/mm3 (4.4-11.0)
[2024-06-08 08:52] LABS: Anion Gap 4 (5-15); BUN 28 mg/dL (7-18); BUN/Creat Ratio 24.3 RATIO (10-20); Calcium,Total 8.2 mg/dL (8.5-10.1); Chloride 106 mmol/L (98-107); Creatinine, Serum 1.15 mg/dL (0.55-1.02); EST Glomerular Filtration Rate 48 mL/min (>60); Est Glom Filt Rate - Afr Amer 57 mL/min (>60); Estimated Creatinine Clearance 31.52 ml/min; Glucose 96 mg/dL (74-106); Phosphorus 3.3 mg/dL (2.5-4.9); Potassium 4.1 mmol/L (3.5-5.1); Sodium Level 143 mmol/L (136-145)
[2024-06-08 09:05] VITALS: BP 118/58; PULSE 72; RESP 18; TEMP 36.4; O2SAT 97
--- NOTE | 2024-06-08 09:59 | PCM.DC ---
Discharge Instructions Diet Discharge Diet: 2000 mg Sodium Diet Activity Discharge Activity: Return to Normal Activity Weight Bearing Status: Weight bearing as tolerated Dressing / Incision Call your doctor if you observe: Fever of 101 or Higher, Coldness, Increased Pain, Numbness or Tingling, Change in Color, Inability to urinate, Inability to have a bowel movement, Shortness of breath, Dizziness, Fainting spells, Swelling in the ankles, Chest pain, Prolonged hiccupping, Increased palpitations (irregular heartbeat) and Calf discomfort Follow Up Care When: IN 2 WEEKS Test Results: Test results from this visit will be discussed in further detail at your follow-up appointment, if applicable. Discharge Plan Admission Admit Date/Time: 06/06/24 20:44 Primary Reason for Your Visit: Electrolyte abnormality from Lasix. Mild sigmoid diverticulitis Attending Provider: Juan Esteves Primary Care Provider: Rachel Salas NP Consulting Providers: Jorje Hood Instructions Additional Instructions / Restrictions: Follow-up your own urologist in [place] for right renal cyst. MRI report of abdomen given. Discharge Orders/Prescriptions Prescriptions: New cholecalciferol (vitamin D3) 125 mcg (5,000 unit) Capsule 125 mcg PO DAILY 30 Days Qty: 30 0RF ciprofloxacin HCl [Cipro] 500 mg tablet 500 mg PO BID 5 Days Qty: 10 0RF metronidazole 500 mg tablet 500 mg PO Q8H 5 Days Qty: 15 0RF magnesium 200 mg tablet 400 mg PO BID 30 Days Qty: 120 0RF L.acidoph,saliva-B.bif-S.therm 175 mg Capsule 1 cap PO BID 7 Days Qty: 14 0RF Rx Instructions: Tkyq-ggp-ceoxlsp for 1 week calcium carbonate [Calcium 500] 500 mg calcium (1,250 mg) tablet,chewable 500 mg PO BID 30 Days Qty: 60 0RF Continued acetaminophen 500 mg tablet 1,000 mg PO Q6H PRN (Reason: pain) arformoterol 15 mcg/2 mL solution for nebulization 15 mcg inhalation BID duloxetine 20 mg capsule,delayed release(DR/EC) 60 mg PO DAILY spironolactone 25 mg tablet 25 mg PO QDAY zolpidem 5 mg tablet 10 mg PO QHS PRN (Reason: sleep) atorvastatin 40 MG tablet 40 mg PO QHS clopidogrel 75 MG tablet 75 mg PO DAILY albuterol sulfate 90 mcg/actuation HFA aerosol inhaler 2 puff INHALATION BID PRN (Reason: shortness of breath or wheezing) pramipexole 1.5 mg tablet 1.5 mg PO QHS Arthritis Pain Compound 3 click topical BID 5 Days Qty: 0 0RF Rx Instructions: Please use the compounded cream ordered in the hospital. If this assists greatly you may ask PCP at follow-up to request refill from [facility] where it is compounded. carvedilol 12.5 mg tablet 12.5 mg PO BID budesonide 0.5 mg/2 mL suspension for nebulization 0.25 mg inhalation BID 30 Days Qty: 0 0RF polysaccharide iron complex [Ferrex 150] 150 mg iron Capsule 150 mg PO DAILY 30 Days Qty: 30 0RF potassium chloride 20 mEq Tablet,Er Particles/Crystals 20 meq PO BIDCM 30 Days Qty: 60 0RF Changed furosemide 40 mg tablet 40 mg PO DAILY 30 Days Qty: 60 3RF pantoprazole 40 mg Tablet,Delayed Release (Dr/Ec) 40 mg PO DAILY 30 Days Qty: 60 0RF Discontinued nitrofurantoin monohyd/m-cryst 100 mg capsule 1 cap PO BID Referrals / Follow Up: Rachel Salas [employer]PER[employer], [employer] [Primary Care Provider] - Within 1 Week Disposition Disposition (needs filled in before D/C Order can be placed): Home, Self Care
[2024-06-08] MEDS: Heparin Injection (Vial) 5,000 UNIT/ML VIAL 5000 UNIT SC (10:03)
[2024-06-08] MEDS: Cholecalciferol (Vit D3) 125 MCG CAPSULE (5,000 UNITS) PO (10:03)
[2024-06-08] MEDS: DULoxetine Hcl 60 MG Capsule PO (10:03)
[2024-06-08] MEDS: Clopidogrel Bisulfate 75 MG Tablet PO (10:03)
[2024-06-08] MEDS: Ascorbic Acid 500 MG Tablet 1000 MG PO (10:04)
[2024-06-08] MEDS: Iron Polysaccharide Complex 150 MG CAPSULE PO (10:04)
[2024-06-08] MEDS: Pantoprazole Sodium 40 MG Tablet PO (10:04)
[2024-06-08] MEDS: Potassium Chloride Oral Tablet 20 MEQ 40 MEQ PO (10:04)
[2024-06-08] MEDS: Lactobacillis Acidophilus 1 CAP PO (10:04)
[2024-06-08] MEDS: Carvedilol 12.5 MG Tablet PO (10:05)
[2024-06-08 11:56] LABS: Bedside Glucose 100 mg/dL (74-106)
--- NOTE | 2024-06-08 12:20 | PCM.DC.SUM ---
Providers Date of Admission: 06/06/24 Date of Discharge: 06/08/24 Primary Care Physician: WILMER Maynard Reason For Visit: HYPOMAGNESEMIA SEVERE HYPOCALCEMIA Diagnosis Discharge Diagnosis (1) Hypomagnesemia: Status: Acute Code(s): E83.42 - Hypomagnesemia (2) Hypocalcemia: Status: Acute Code(s): E83.51 - Hypocalcemia (3) Acute hypokalemia: Status: Acute Code(s): E87.6 - Hypokalemia (4) Dehydration: Status: Acute Code(s): E86.0 - Dehydration (5) Diarrhea: Status: Acute Code(s): R19.7 - Diarrhea, unspecified Qualifiers: Diarrhea type: unspecified type Qualified Code(s): R19.7 - Diarrhea, unspecified (6) Acute diverticulitis: Status: Acute Code(s): K57.92 - Diverticulitis of intestine, part unspecified, without perforation or abscess without bleeding (7) Renal mass, right: Status: Acute Code(s): N28.89 - Other specified disorders of kidney and ureter (8) Auditory hallucination: Status: Acute Code(s): R44.0 - Auditory hallucinations (9) Metabolic encephalopathy: Status: Acute Code(s): G93.41 - Metabolic encephalopathy (10) Adverse drug reaction: Status: Acute Code(s): T50.905A - Adverse effect of unspecified drugs, medicaments and biological substances, initial encounter Qualifiers: Encounter type: initial encounter Qualified Code(s): T50.905A - Adverse effect of unspecified drugs, medicaments and biological substances, initial encounter Plan 88-year-old woman was admitted with abnormal lab showing severe hypomagnesemia. Patient was seen by her doctor for auditory hallucinations, blurry vision bilaterally for last several days. 1. Severe hypomagnesemia of 0.5 mg/dL present on admission, probably due to diuretics- Admit to PCU. Give IV magnesium sulfate and then recheck level in a.m. to ensure improvement. 06/07: Electrolytes were replaced. Repeat magnesium is 2.1. Serum phosphorus 4.1. Probably due to diuretics 06/08: Acute hypomagnesemia resolved. Patient was given prescription for magnesium. Advised BMP, magnesium, phosphorus in 3 days follow-up PCP and advised to increase spironolactone dose and discontinue potassium supplement. 2. Severe hypocalcemia of 6.8 mg/dL present on admission complicating #1 - Give supplemental IV calcium gluconate 06/07 repeat calcium shows low 7.6 g%. IV calcium gluconate ordered. 06/08: Hypocalcemia resolved. Patient was given prescription for oral calcium supplement. 3. Hypokalemia of 3.2 mmol/L present on admission compounding #1 & #2 - Give supplemental IV and oral KCl and then recheck BMP in a.m. to follow trend. 06/06: Hypokalemia resolved. Repeat potassium 3.9. 06/08: Patient on potassium supplement and spironolactone. 4. BERNARDO with elevated BUN/creatinine ratio of 25.3 present on admission in the setting of known CKD; stage IIIb likely due to adverse drug reaction to Lasix: Admitting BUNs/creatinine 42/1.66. Bicarb high 34.0 suggestive of metabolic alkalosis due to Lasix. Baseline creatinine 1.1-1.29. 06/07: Repeat BUN/creatinine 33/1.26. Continue holding Lasix. 06/08: Lasix changed from 40 mg twice daily to once daily, resume Lasix 40 mg daily from tomorrow a.m. 5. CT positive for Acute Diverticulitis with Nonbloody diarrhea. Incidentally noted new ~4.3 cm Right Renal Mass and radiologist recommending MRI with and without contrast to further delineate lesion - Place on enteric precautions and check stool studies to evaluate for potential underlying infectious etiology. Start IV Rocephin and IV Flagyl to cover gram-negatives and anaerobes. Probiotics is ordered. 06/07: MRI abdomen shows 2 kidney cysts, Bosniak class II cyst as described. One 1.5 cm in upper pole of right kidney another 4 cm lesion in anterior aspect of midsection of right kidney. As per the daughter she follows urologist in [place]. Her kidney cyst was about 2 cm in 2021. MRI report copy was given to the patient and advised to follow-up urologist as an outpatient. 6. Metabolic encephalopathy with auditory hallucinations x 2 week probably related due to electrolyte abnormality-: Avoid INTER[employer] DESIGN [employer] sedating medications. 06/07 metabolic encephalopathy resolved 06/08: Hallucinations are discussed with the patient. Possible may be from metabolic encephalopathy from dehydration, electrolyte abnormality as mentioned above but might have other differential like dementia therefore advised to follow-up with a neurologist as an outpatient, referred by PCP 7. Chronic insomnia; on as needed nightly Ambien. Hold Ambien with possible adverse drug reaction contributing to hallucination 8. Essential hypertension; on Coreg and Spironolactone - Hold Spironolactone due to relative volume depletion but continue Coreg as previous. Give hydralazine IV as needed for systolic blood pressure greater than 160 mmHg. 9. Hyperlipidemia; on atorvastatin - Resume statin and lipid profile within normal limit except HDL 36. 10. DM-2; of unknown control - ADA diet. FSBS q. AC/HS plus SSI. HgbA1c 5.9%. 11. chronic diastolic CHF; with preserved LVEF on Lasix plus supplemental KCl BID - Hold Lasix in light of volume depletion. Patient has no signs of volume overload at this time. 12. Former tobacco abuse (quit ~2021); with subsequent COPD and chronic hypoxic respiratory failure; on 2L NC - Stable with no evidence of acute flare. Continue scheduled and as needed inhalers as previous. 13. History of bilateral carotid artery stenosis with previous TIA (2018); s/p carotid angioplasty on Plavix - Maintain Plavix as before 14. Multiple other comorbidities include chronic SOPHIE, PAD with claudication, RLS on pramipexole, chronic migraine headache, depression, GERD and osteoarthritis with right lumbar radiculopathy DVT prophylaxis - Heparin 5,000 U sq. BID plus SCDs. Discharge medication reconciliation done. Discharge follow-up instructions completed. Discharge process discussed with the patient and all questions were answered to patient's satisfaction. Follow with PCP in 1 to 2 weeks Total time spent, exact 35 minutes on discharge meds reconciliation, examination, coordination of care with nurses and ancillary staff, review of imaging and blood test and discussion with the patient on follow-up instructions. Medications at Discharge Home Medications atorvastatin 40 mg tablet 40 mg PO QHS cholesterol 02/22/16 clopidogrel 75 mg tablet 75 mg PO DAILY BLOOD THINNER 02/22/16 albuterol sulfate 90 mcg/actuation aerosol inhaler 2 puff inhalation BID PRN shortness of breath or wheezing 03/16/18 pramipexole 1.5 mg tablet 1.5 mg PO QHS restless leg syndrome 08/18/23 budesonide 0.5 mg/2 mL suspension for nebulization 0.25 mg inhalation BID breathing 30 days #0 mL 09/09/23 polysaccharide iron complex 150 mg iron capsule (Ferrex) 150 mg PO DAILY supplement 30 days #30 caps 10/12/23 potassium chloride 20 mEq tablet,extended release(part/cryst) 20 meq PO BIDCM supplement 30 days #60 tabs 10/12/23 Arthritis Pain Compound 3 click topical BID 5 days ##0 11/06/23 acetaminophen 500 mg tablet 1,000 mg PO Q6H PRN pain 02/14/24 arformoterol 15 mcg/2 mL solution for nebulization 15 mcg inhalation BID breathing 02/14/24 duloxetine 20 mg capsule,delayed release 60 mg PO DAILY mental health 02/14/24 spironolactone 25 mg tablet 25 mg PO QDAY diuretic 02/14/24 zolpidem 5 mg tablet 10 mg PO QHS PRN sleep 02/14/24 carvedilol 12.5 mg tablet 12.5 mg PO BID blood pressure 06/06/24 L.acidophil,salivari-Bifido bifidum-Strep thermoph 175 mg capsule 1 cap PO BID 7 days #14 caps 06/08/24 calcium carbonate (Calcium 500) 500 mg PO BID 1 month #60 tabs 06/08/24 cholecalciferol (vitamin D3) 125 mcg (5,000 unit) capsule 125 mcg PO DAILY 30 days #30 caps 06/08/24 ciprofloxacin HCl 500 mg tablet (Cipro) 500 mg PO BID 5 days #10 tabs 06/08/24 furosemide 40 mg tablet 40 mg PO DAILY FLUID RETENTION 30 days #60 tabs 06/08/24 magnesium 200 mg tablet 400 mg (2 x 200 mg) PO BID 1 month #120 tabs 06/08/24 metronidazole 500 mg tablet 500 mg PO Q8H 5 days #15 tabs 06/08/24 pantoprazole 40 mg tablet,delayed release 40 mg PO DAILY reflux 30 days #60 tabs 06/08/24 Physical Exam Narrative Seen and examined. Patient is on baseline. Did not had hallucinations last night. Electrolyte abnormalities corrected. Patient was admitted for abnormal severe critical hypomagnesemia. She also had hypocalcemia. She was also seeing hallucination which is new as per the daughter probably related to dehydration or abnormal electrolytes. She is on diuretic furosemide 40 mg twice daily and spironolactone for chronic leg swelling Discussed with the patient's daughter. She also has history of right kidney cyst and follows urologist in [place]. Physical exam General: Alert, Oriented x3, Cooperative HEENT: Atraumatic, PERRLA, EOMI, Normocephalic Oral: Oral mucosa dry. No Gingival or Mucosal Lesions/ Ulcerations Neck: Supple, No JVD, Negative Carotid Bruits Chest wall/Lungs: Air entry diminished in bilateral lung bases. No crepitation/rhonchi Cardiovascular: Regular rate, Regular Rhythm, Normal S1, Normal S2, No M/G/R Abdomen: Bowel Sounds Present, Soft, Non Tender, Non-Distended : No dysuria. No renal angle tenderness. No suprapubic tenderness. Extremities: No edema, Capillary Refill Less than 3 Seconds Skin: No rashes, No breakdown Musculoskeletal: No Tenderness to Palpation of Joints or Extremities Neurological: Cranial nerves II-XII grossly intact, DTR 2+/4. No acute focal neurological deficit. Psych/Mental Status: Flat affect. Hallucinations are resolved Weight / BMI Weight Weight: 147 lb 11.355 oz Body Mass Index (BMI) 27.0 ABG / Lab / Microbiology Data 06/08/24 07:12 06/08/24 07:12 Laboratory: Laboratory Results - last 24 hr 06/07/24 16:51: POC Glucose 131 H 06/07/24 21:37: POC Glucose 112 H 06/08/24 06:22: POC Glucose 92 06/08/24 07:12: WBC 6.4, RBC 3.21 L, Hgb 10.0 L, Hct 31.9 L, MCV 99.4 H, MCH 31.2, MCHC 31.3 L, RDW Std Deviation 49.5 H, RDW Coeff of Ha 13.4, Plt Count 152, MPV 10.7, Immature Gran % (Auto) 0.300, Neut % (Auto) 70.6 H, Lymph % (Auto) 16.0 L, [place] % (Auto) 9.2, Eos % (Auto) 3.6, Baso % (Auto) 0.3, Absolute Neuts (auto) 4.5, Absolute Lymphs (auto) 1.03, Nucleated RBC % 0, Sodium 143, Potassium 4.1, Chloride 106, Carbon Dioxide 33.0 H, Anion Gap 4 L, BUN 28 H, Creatinine 1.15 H, Estim Creat Clear Calc 31.52, Est GFR (MDRD) Af Amer 57 L, Est GFR (MDRD) Non-Af 48 L, BUN/Creatinine Ratio 24.3 H, Glucose 96, Calcium 8.2 L, Phosphorus 3.3 06/08/24 11:33: POC Glucose 100 Radiography Diagnostic Testing: Radiology Impression Abdomen MRI 06/07/24 00:11 IMPRESSION: MRI confirms a Bosniak class II cyst of the right kidney. Electronically Signed: Yosi Price MD at 13:47 EST , D/C Instructions Discharge Diet: 2000 mg Sodium Diet Weight Bearing Status: Weight bearing as tolerated Call your doctor if you observe: Fever of 101 or Higher, Coldness, Increased Pain, Numbness or Tingling, Change in Color, Inability to urinate, Inability to have a bowel movement, Shortness of breath, Dizziness, Fainting spells, Swelling in the ankles, Chest pain, Prolonged hiccupping, Increased palpitations (irregular heartbeat) and Calf discomfort DC O2, CPAP, BIPAP Needs Additional Home O2 Discharge instructions: No DC home with Oxygen: No When: IN 2 WEEKS Meaningful Use Info Meaningful Use Meaningful Use Diagnoses (Choose all that apply): None applicable Ischemic Stroke Statin Dosing Therapy Reference: STATIN DOSE THERAPY REFERENCE: * Patients > 75 years receive moderate or high dose statin therapy. * Patients 75 years or YOUNGER should receive HIGH intensity statin dose unless contraindicated. You will be required to document reason for non-treatment if statin daily dose does not meet guidelines. HIGH DOSE STATIN THERAPY DAILY Atorvastatin > than or = to 40 mg Rosuvastatin > than or = to 20 mg Amlodipine + Atorvastatin > than or = to 2.5/40 mg Ezetimibe + Simvastatin 10/80 mg Simvastatin 80mg Discharge Plan Admission Admit Date/Time: 06/06/24 20:44 Primary Reason for Your Visit: Electrolyte abnormality from Lasix. Mild sigmoid diverticulitis Attending Provider: Juan Esteves Primary Care Provider: Rachel Salas NP Consulting Providers: Jorje Hood Instructions Additional Instructions / Restrictions: Follow-up your own urologist in [place] for right renal cyst. MRI report of abdomen given. Advised BMP, magnesium, phosphorus in 3 days follow-up PCP. Advised to hold Ambien Discharge Orders/Prescriptions Prescriptions: New cholecalciferol (vitamin D3) 125 mcg (5,000 unit) Capsule 125 mcg PO DAILY 30 Days Qty: 30 0RF ciprofloxacin HCl [Cipro] 500 mg tablet 500 mg PO BID 5 Days Qty: 10 0RF metronidazole 500 mg tablet 500 mg PO Q8H 5 Days Qty: 15 0RF magnesium 200 mg tablet 400 mg PO BID 30 Days Qty: 120 0RF L.acidoph,saliva-B.bif-S.therm 175 mg Capsule 1 cap PO BID 7 Days Qty: 14 0RF Rx Instructions: Fzql-jnf-rcvpyys for 1 week calcium carbonate [Calcium 500] 500 mg calcium (1,250 mg) tablet,chewable 500 mg PO BID 30 Days Qty: 60 0RF Continued acetaminophen 500 mg tablet 1,000 mg PO Q6H PRN (Reason: pain) arformoterol 15 mcg/2 mL solution for nebulization 15 mcg inhalation BID duloxetine 20 mg capsule,delayed release(DR/EC) 60 mg PO DAILY spironolactone 25 mg tablet 25 mg PO QDAY atorvastatin 40 MG tablet 40 mg PO QHS clopidogrel 75 MG tablet 75 mg PO DAILY albuterol sulfate 90 mcg/actuation HFA aerosol inhaler 2 puff INHALATION BID PRN (Reason: shortness of breath or wheezing) pramipexole 1.5 mg tablet 1.5 mg PO QHS Arthritis Pain Compound 3 click topical BID 5 Days Qty: 0 0RF Rx Instructions: Please use the compounded cream ordered in the hospital. If this assists greatly you may ask PCP at follow-up to request refill from [facility] where it is compounded. carvedilol 12.5 mg tablet 12.5 mg PO BID budesonide 0.5 mg/2 mL suspension for nebulization 0.25 mg inhalation BID 30 Days Qty: 0 0RF polysaccharide iron complex [Ferrex 150] 150 mg iron Capsule 150 mg PO DAILY 30 Days Qty: 30 0RF potassium chloride 20 mEq Tablet,Er Particles/Crystals 20 meq PO BIDCM 30 Days Qty: 60 0RF Changed furosemide 40 mg tablet 40 mg PO DAILY 30 Days Qty: 60 3RF pantoprazole 40 mg Tablet,Delayed Release (Dr/Ec) 40 mg PO DAILY 30 Days Qty: 60 0RF Held zolpidem 5 mg tablet 10 mg PO QHS PRN (Reason: sleep) Hold Instructions: Hold for 1 week and then discussed with PCP before resumption possible not more than 5 mg daily Discontinued nitrofurantoin monohyd/m-cryst 100 mg capsule 1 cap PO BID Referrals / Follow Up: Rachel Salas [employer] UP [employer]CH[employer]IC, [employer]CH[employer]IC-C [Primary Care Provider] - Within 1 Week (Please call to schedule your appointment ) Disposition Disposition (needs filled in before D/C Order can be placed): Home, Self Care Charges/Coding Visit Charges Inpatient E&M: 21755 Disch Hosp >30min
[2024-06-08 12:46] VITALS: BP 118/58; PULSE 72; RESP 18; TEMP 36.4; O2SAT 97
--- NOTE | 2024-06-08 13:10 | CASEMGMT ---
Patient has order for discharge. ST recommended at discharge. DEVANG KELLER in to discuss ST with patient. Patient declines ST at discharge and wants to follow up with Dr. Real and discuss with him. Patient denies needs or help at discharge. Family aware to bring oxygen tank from home. Patient had no further questions or concerns. DEVANG KELLER called and left message with [facility] regarding patient declining ST at discharge.
--- NOTE | 2024-06-08 14:13 | PHA.DC_ITS ---
Pharmacy [facility] has performed discharge medication reconciliation and counseling for this patient. The patient's discharge medication list was reviewed for discrepancies and discrepancies were resolved. The patient was counseled on the following discharge medications and changes in medications for homegoing were reviewed. The Reason for Use, instructions for use, and potential side effects were reviewed for all new medications. The patient's questions regarding all of their medications were answered. 1. Ciprofloxacin 500 mg PO BID x 5 days 2. Metronidazole 500 mg PO Q8H x 5 days 3. Cholecalciferol 125 mcg PO daily 4. Calcium carbonate 500 mg PO BID x 40 days 5. Magnesium 400 mg PO BID 6. Pro biotic 1 capsule BID x 7 days The patient was able to verbally demonstrate an understanding of their discharge medications. Medications at Discharge Home Medications atorvastatin 40 mg tablet 40 mg PO QHS cholesterol 02/22/16 clopidogrel 75 mg tablet 75 mg PO DAILY BLOOD THINNER 02/22/16 albuterol sulfate 90 mcg/actuation aerosol inhaler 2 puff inhalation BID PRN shortness of breath or wheezing 03/16/18 pramipexole 1.5 mg tablet 1.5 mg PO QHS restless leg syndrome 08/18/23 budesonide 0.5 mg/2 mL suspension for nebulization 0.25 mg inhalation BID br eathing 30 days #0 mL 09/09/23 polysaccharide iron complex 150 mg iron capsule (Ferrex) 150 mg PO DAILY supplement 30 days #30 caps 10/12/23 potassium chloride 20 mEq tablet,extended release(part/cryst) 20 meq PO BIDCM supplement 30 days #60 tabs 10/12/23 Arthritis Pain Compound 3 click topical BID 5 days ##0 11/06/23 acetaminophen 500 mg tablet 1,000 mg PO Q6H PRN pain 02/14/24 arformoterol 15 mcg/2 mL solution for nebulization 15 mcg inhalation BID breathing 02/14/24 duloxetine 20 mg capsule,delayed release 60 mg PO DAILY mental health 02/14/24 spironolactone 25 mg tablet 25 mg PO QDAY diuretic 02/14/24 zolpidem 5 mg tablet 10 mg PO QHS PRN sleep 02/14/24 carvedilol 12.5 mg tablet 12.5 mg PO BID blood pressure 06/06/24 L.acidophil,salivari-Bifido bifidum-Strep thermoph 175 mg capsule 1 cap PO BID 7 days #14 caps 06/08/24 calcium carbonate (Calcium 500) 500 mg PO BID 1 month #60 tabs 06/08/24 cholecalciferol (vitamin D3) 125 mcg (5,000 unit) capsule 125 mcg PO DAILY 30 days #30 caps 06/08/24 ciprofloxacin HCl 500 mg tablet (Cipro) 500 mg PO BID 5 days #10 tabs 06/08/24 furosemide 40 mg tablet 40 mg PO DAILY FLUID RETENTION 30 days #60 tabs 06/08/24 magnesium 200 mg tablet 400 mg (2 x 200 mg) PO BID 1 month #120 tabs 06/08/24 metronidazole 500 mg tablet 500 mg PO Q8H 5 days #15 tabs 06/08/24 pantoprazole 40 mg tablet,delayed release 40 mg PO DAILY reflux 30 days #60 tabs 06/08/24
== END 2024-06-08 14:56 | disposition home or self-care (01) | DRG 640 ==
LOC: ED 20:47 → PCU 22:13
PROVIDERS: Admitting Provider Internal Medicine; Emergency Provider Emergency Medicine; PCP Internal Medicine; Referring Provider Emergency Medicine; Visit Provider Internal Medicine
DX: E83.42 Hypomagnesemia (principal); G92.8 Other toxic encephalopathy; E87.3 Alkalosis; J96.11 Chronic respiratory failure with hypoxia; N17.9 Acute kidney failure, unspecified; I13.0 Hypertensive heart and chronic kidney disease with heart failure and stage 1 through stage 4 chronic kidney disease, or unspecified chronic kidney disease; I50.32 Chronic diastolic (congestive) heart failure; R44.0 Auditory hallucinations; K57.32 Diverticulitis of large intestine without perforation or abscess without bleeding; N39.0 Urinary tract infection, site not specified; E11.22 Type 2 diabetes mellitus with diabetic chronic kidney disease; D50.9 Iron deficiency anemia, unspecified; E11.51 Type 2 diabetes mellitus with diabetic peripheral angiopathy without gangrene; J44.9 Chronic obstructive pulmonary disease, unspecified; N18.32 Chronic kidney disease, stage 3b; F32.A Depression, unspecified; G25.81 Restless legs syndrome; E83.51 Hypocalcemia; E11.65 Type 2 diabetes mellitus with hyperglycemia; E86.0 Dehydration; E78.00 Pure hypercholesterolemia, unspecified; E87.6 Hypokalemia; K21.9 Gastro-esophageal reflux disease without esophagitis; M54.16 Radiculopathy, lumbar region; G43.709 Chronic migraine without aura, not intractable, without status migrainosus; T42.6X5A Adverse effect of other antiepileptic and sedative-hypnotic drugs, initial encounter; F51.04 Psychophysiologic insomnia; T50.1X5A Adverse effect of loop [high-ceiling] diuretics, initial encounter; N28.1 Cyst of kidney, acquired; Z79.02 Long term (current) use of antithrombotics/antiplatelets; Z79.899 Other long term (current) drug therapy; Z99.81 Dependence on supplemental oxygen; Z87.891 Personal history of nicotine dependence
CPT/HCPCS: 36415; 70450; 74176; 74183; 74230; 80048; 80053; 80061; 80076; 80307; 81001; 82077; 82330; 82436; 82607; 82746; 82962; 83036; 83735; 83930; 83935; 84100; 84300; 84443; 85025; 92610; 92611; 94640; 94668; 97161; 99285; A9575; A4216; J0612

== ENCOUNTER 2024-09-27 05:33 | Day surgery (SDC) | payer MEDICARE, SELFPAY ==
--- NOTE | 2024-09-24 15:26 | PAT.ANE_ITS ---
Pre-Assessment Diagnosis/Proposed Procedure Planned Operative Procedure(s): EGD Anesthesia History Anesthesia History - profiling machine set up operator tool: Anesthesia History - profiling machine set up operator tool Hx Hospitalization Yes: INFECTION 09/24/24 13:52 Any Problems With Anesthesia No 09/24/24 13:52 Cholinesterase deficiency No 09/24/24 13:52 You/Your Family Experience No 09/24/24 13:52 fever (hyperthermia) with Relationship Recent Exposure to Contagious No 04/19/24 07:47 Disease Does patient have nerve No 09/24/24 13:52 stimulator Patient instructed to have device shut off --Does patient have Pacemaker or ICD? When Was Last Pacemaker Check QUESTION #4 FULL TEXT: You/Your Family Experience fever (hyperthermia) with Anesthesia Last Oral Intake Last Oral intake: Last Oral Intake NPO since Meds taken in AM with sips of water? Meds patient instructed to take am of surgery PONV PONV - profiling machine set up operator tool: PONV - profiling machine set up operator tool Female Yes 09/24/24 13:52 HX of Motion Sickness No 09/24/24 13:52 HX of N/V After Surgery No 09/24/24 13:52 Non-Smoker Yes 09/24/24 13:52 Duration of Surgery greater No 09/24/24 13:52 than 60 minutes Number of Risk Factors 2 09/24/24 13:52 PONV Score Moderate Risk 09/24/24 13:52 Height & Weight Height & Weight: Anesthesia: Height & Weight Height 5 ft 2 in 06/06/24 23:47 Respiratory Assessment Respiratory Assessment - profiling machine set up operator tool: Respiratory Tract Infection Hx - profiling machine set up operator tool Hx Respiratory Tract Infection No 09/24/24 13:52 STOP Sleep Apnea STOP Sleep Apnea - profiling machine set up operator tool: STOP Sleep Apnea - profiling machine set up operator tool Hx Hypertension Yes 09/24/24 13:52 Hx Sleep Apnea No 09/24/24 13:52 CPAP No 04/19/24 09:02 BIPAP No 11/03/23 18:31 Do you snore loudly (louder No 09/24/24 13:52 than talking or can be heard Do you often feel tired/ No 09/24/24 13:52 fatigued/ sleepy during daytime? Has anyone observed you stop No 09/24/24 13:52 breathing during sleep? STOP Results Negative 09/24/24 13:52 QUESTION #5 FULL TEXT : Do you snore loudly (louder than talking or can be heard through closed doors)? 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 Specify any problems Hx of Preganancy in last 3 No 09/24/24 13:52 Months Nurse Filling Out Transfusion [email or web address] 09/24/24 13:52 & Questions: Date: 09/24/24 09/24/24 13:52 Time: 14:14 09/24/24 13:52 Patient unable to answer at this time (ie. confused, unrespo /Reproduction History /Reproductive History - profiling machine set up operator tool: /Reproductive Hx- profiling machine set up operator tool Hx Now No 09/24/24 13:52 Gestational Age (in weeks): EDC: Hx Hx Para Hx Section SAB No 09/24/24 13:52 PFSH Medical History Cancer Thyroid disease Ambulates with cane History of renal disease TIA (transient ischemic attack) Acute diverticulitis Wears glasses Wears dentures Arthritis Low iron Anemia High cholesterol Migraine headache Restless legs Difficulty chewing History of diverticulitis Heartburn Gastric reflux Former smoker On home oxygen therapy Shortness of breath on exertion Chronic cough History of edema History of echocardiogram History of stress test Cardiology follow-up encounter Hypertension Chronic hypoxic respiratory failure History of diabetes mellitus History of hypertension Diverticulitis History of chronic heart failure History of COPD COPD (chronic obstructive pulmonary disease) Anemia Chronic heart failure with preserved ejection fraction (HFpEF) Hyperlipidemia Right lumbar radiculopathy CKD (chronic kidney disease), stage III Hypertension Chronic kidney disease PAD (peripheral artery disease) Renal cyst History of TIA (transient ischemic attack) Bilateral carotid artery stenosis Claudication RLS (restless legs syndrome) Diverticulosis TIA (transient ischemic attack) Vertigo Leg edema Dyslipidemia Home Medications ?Medication ?Instructions ?Recorded ?Last Taken ?Type atorvastatin 40 mg tablet 40 mg PO QHS cholesterol 01/3010/04/23 21:55 History clopidogrel 75 mg tablet 75 mg PO DAILY BLOOD THINNER 02/22/16 09/21/24 History albuterol sulfate 90 mcg/actuation 2 puff inhalation B ID PRN 03/16/18 04/19/24 History aerosol inhaler shortness of breath or wheez ing pramipexole 1.5 mg tablet 1.5 mg PO QHS restless leg s yndrome 08/18/23 10/04/23 21:55 History budesonide 0.5 mg/2 mL suspension 0.25 mg inhalation B ID breathing 09/09/23 10/05/23 07:00 Rx for nebulization 30 days #0 mL polysaccharide iron complex 150 mg 150 mg PO DAILY sup plement 30 days 10/12/23 09/21/24 Rx iron capsule (Ferrex) #30 caps acetaminophen 500 mg tablet 1,000 mg PO Q6H PRN pain 0 02/14/24 Unknown History arformoterol 15 mcg/2 mL solution 15 mcg inhalation BI D breathing 02/14/24 04/19/24 History for nebulization duloxetine 20 mg capsule,delayed 60 mg PO DAILY mental health 02/14/24 04/19/24 History release spironolactone 25 mg tablet 25 mg PO QDAY diuretic Unknown History cholecalciferol (vitamin D3) 125 125 mcg PO DAILY 30 d ays #30 caps 06/08/24 Unknown Rx mcg (5,000 unit) capsule carvedilol 12.5 mg tablet 25 mg PO BID 09/24/24 Unknow n History furosemide 40 mg tablet 40 mg PO Q12H FLUID RETENTIO N 09/24/24 Unknown History magnesium 200 mg tablet 400 mg PO DAILY 09/24/24 Unk nown History pantoprazole 40 mg tablet,delayed 40 mg PO Q12H reflux 09/24/24 Unknown History release potassium chloride 20 mEq 20 meq PO DAILY supplement 0 09/24/24 Unknown History tablet,extended release(part/cryst) Allergy/AdvReac Type Severity Reaction Status Date / Time lisinopril Allergy edema Verified 06/06/24 18:17 aspirin AdvReac Upset Verified 06/06/24 18:17 Stomach Family History Mother Heart disease Surgical History History of thyroid surgery History of carotid angioplasty History of kidney stones History of basal cell carcinoma excision History of total hysterectomy Social History household members: none housing: house Smoking Status: Former smoker how long ago did patient quit smokin years ago alcohol intake: current alcohol intake frequency: holidays/special occasions only details: rare substance use type: does not use caffeine: Yes Type: coffee Number of servings: 1 Audit: Pertinent Findings Pertinent Findings EKG Perinent findings: 11/03/2023. Sinus rhythm with PACs. Right bundle branch block. 77 bpm Echo (EF%) pertinent findings: 09/04/2023. Normal left ventricle normal function EF 70% PA pressure 30 Consult pertinent findings: Cardiology 02/14/2024. Hypertension. And active. Well-controlled. Bilateral carotid artery stenosis. And active moderate disease on the left. Continue Plavix. Recommendation Anesthesia Recommendation Anesthesia recommendation: OPTIMIZED for anesthesia
[2024-09-27] VITALS (21 sets, daily range): BP systolic 77–157; BP diastolic 40–79; PULSE 66–78; RESP 16–18; TEMP 36.1–36.6; O2SAT 95–100; BMI 26.0
--- NOTE | 2024-09-27 06:25 | PRE.ANES_ITS ---
ASA Classification* ASA Classification ASA Classification: 3 (Please keep patient oxygenated with face mask. COPD on 2 L at home ) Assessment & Plan Anesthesia* Anesthesia Assessment Anesthesia Assessment: Discussed sedation and/or anesthesia options, risks, benefits, and alternatives with patient/parents/legal guardian/POA. Questions invited. The patient/parents/legal guardian/POA seems to understand and agrees to proceed with anesthesia plan. Reviewed the physical assessment, medical history, allergy history and patient home medications list prior to surgery/procedure/anesthetic and documented any changes. Performed airway and anesthesia risk assessments. Anesthesia Type Anesthesia Type: General History Source History Obtained from:: Patient and Chart Anesthesia Focused Assessment* Temperature: 97.8 F Pulse Rate: 75 Blood Pressure: 157/57 Respiratory Rate: 18 Pulse Ox: 98 Oxygen Delivery Method: Nasal Cannula Oxygen Flow Rate (L/min): 4 Airway Assessment Mouth opens: >3 cm Mallampati Score: III Teeth Condition: Dentures (taken out) Neck Range of motion (ROM): Full ROM Focused Labs Anesthesia Preop lab: CBC WBC 6.4 K/mm3 (4.4-11.0) 06/08/24 07:12 06/08/24 RBC 3.21 M/mm3 (4.2-5.4) L 06/08/24 07:12 06/08/24 Hgb 10.0 g/dL (12.0-15.0) L 06/08/24 07:12 4 Hct 31.9 % (37-47) L 06/08/24 07:12 06/08/24 Plt Count 152 K/mm3 (150-450) 06/08/24 07:12 06/08/24 CHEMISTRY Potassium 4.1 mmol/L (3.5-5.1) 06/08/24 07:12 06/08/24 Sodium 143 mmol/L (136-145) 06/08/24 07:12 06/08/24 Magnesium 2.1 mg/dL (1.6-2.6) 06/07/24 05:46 06/07/24 Phosphorus 3.3 mg/dL (2.5-4.9) 06/08/24 07:12 06/08/24 BUN 28 mg/dL (7-18) H 06/08/24 07:12 06/08/24 Creatinine 1.15 mg/dL (0.55-1.02) H 06/08/24 07:12 Glucose 96 mg/dL (74-106) 06/08/24 07:12 06/08/24 POC Glucose 100 mg/dL (74-106) 06/08/24 11:33 06/08/24 TSH 1.820 uIU/mL (0.358-3.740) 06/06/24 18:39 05/19 COAG PT 14.6 SECONDS (11.7-14.9) 08/18/23 19:22 Pre-Assessment Diagnosis/Proposed Procedure Planned Operative Procedure(s): EGD Anesthesia History 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 When Was Last Pacemaker Check QUESTION #4 FULL TEXT: You/Your Family Experience fever (hyperthermia) with Anesthesia Last Oral Intake Last Oral intake: Last Oral Intake NPO since 00:00 09/27/24 06:03 Meds taken in AM with sips of Yes 09/27/24 06:03 water? Meds patient instructed to see medlist 09/27/24 06:03 take am of surgery PONV PONV - ballistics tester: PONV - ballistics tester Female Yes 09/24/24 13:52 HX of Motion Sickness No 09/24/24 13:52 HX of N/V After Surgery No 09/24/24 13:52 Non-Smoker Yes 09/24/24 13:52 Duration of Surgery greater No 09/24/24 13:52 than 60 minutes Number of Risk Factors 2 09/24/24 13:52 PONV Score Moderate Risk 09/24/24 13:52 Height & Weight Height & Weight: Anesthesia: Height & Weight Height 5 ft 2.5 in 09/27/24 06:03 Weight: 65.7 kg 09/27/24 06:03 Body Mass Index (BMI) 26.0 09/27/24 06:03 Respiratory Assessment Respiratory Assessment - ballistics tester: Respiratory Tract Infection Hx - ballistics tester Hx Respiratory Tract Infection No 09/24/24 13:52 STOP Sleep Apnea STOP Sleep Apnea - ballistics tester: STOP Sleep Apnea - ballistics tester Hx Hypertension Yes 09/24/24 13:52 Hx Sleep Apnea No 09/24/24 13:52 CPAP No 04/19/24 09:02 BIPAP No 11/03/23 18:31 Do you snore loudly (louder No 09/24/24 13:52 than talking or can be heard Do you often feel tired/ No 09/24/24 13:52 fatigued/ sleepy during daytime? Has anyone observed you stop No 09/24/24 13:52 breathing during sleep? STOP Results Negative 09/24/24 13:52 QUESTION #5 FULL TEXT : Do you snore loudly (louder than talking or can be heard through closed doors)? 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 Specify any problems Hx of Preganancy in last 3 No 09/24/24 13:52 Months Nurse Filling Out Transfusion [email or web address] 09/24/24 13:52 & Questions: Date: 09/24/24 09/24/24 13:52 Time: 14:14 09/24/24 13:52 Patient unable to answer at this time (ie. confused, unrespo /Reproduction History /Reproductive History - ballistics tester: /Reproductive Hx- ballistics tester Hx Now No 09/24/24 13:52 Gestational Age (in weeks): EDC: Hx Hx Para Hx Section SAB No 09/24/24 13:52 Active Medications Active Medications: Current Medications Generic Name Dose Route Start Last Admin Trade Name Freq PRN Reason Stop Dose Admin Botulinum Toxin Type A 100 units 09/27/24 06:30 Botulinum Toxin A 100 Units Vial IJ 09/27/24 06:31 PREOP ONE [facility], [facility]–1983 Medical History Cancer Thyroid disease Ambulates with cane History of renal disease TIA (transient ischemic attack) Acute diverticulitis Wears glasses Wears dentures Arthritis Low iron Anemia High cholesterol Migraine headache Restless legs Difficulty chewing History of diverticulitis Heartburn Gastric reflux Former smoker On home oxygen therapy Shortness of breath on exertion Chronic cough History of edema History of echocardiogram History of stress test Cardiology follow-up encounter Hypertension Chronic hypoxic respiratory failure History of diabetes mellitus History of hypertension Diverticulitis History of chronic heart failure History of COPD COPD (chronic obstructive pulmonary disease) Anemia Chronic heart failure with preserved ejection fraction (HFpEF) Hyperlipidemia Right lumbar radiculopathy CKD (chronic kidney disease), stage III Hypertension Chronic kidney disease PAD (peripheral artery disease) Renal cyst History of TIA (transient ischemic attack) Bilateral carotid artery stenosis Claudication RLS (restless legs syndrome) Diverticulosis TIA (transient ischemic attack) Vertigo Leg edema Dyslipidemia Home Medications ?Medication ?Instructions ?Recorded ?Last Taken ?Type atorvastatin 40 mg tablet 40 mg PO QHS cholesterol 01/3010/04/23 21:55 History clopidogrel 75 mg tablet 75 mg PO DAILY BLOOD THINNER 02/22/16 09/21/24 History albuterol sulfate 90 mcg/actuation 2 puff inhalation B ID PRN 03/16/18 09/27/24 History aerosol inhaler shortness of breath or wheez ing pramipexole 1.5 mg tablet 1.5 mg PO QHS restless leg s yndrome 08/18/23 10/04/23 21:55 History budesonide 0.5 mg/2 mL suspension 0.25 mg inhalation B ID breathing 02/23/24 03/13/25 Rx for nebulization 30 days #0 mL polysaccharide iron complex 150 mg 150 mg PO DAILY sup plement 30 days 10/12/23 09/21/24 Rx iron capsule (Ferrex) #30 caps acetaminophen 500 mg tablet 1,000 mg PO Q6H PRN pain 0 02/14/24 Unknown History arformoterol 15 mcg/2 mL solution 15 mcg inhalation BI D breathing 02/14/24 09/27/24 History for nebulization duloxetine 20 mg capsule,delayed 60 mg PO DAILY mental health 02/14/24 04/19/24 History release spironolactone 25 mg tablet 25 mg PO QDAY diuretic Unknown History cholecalciferol (vitamin D3) 125 125 mcg PO DAILY 30 d ays #30 caps 06/08/24 Unknown Rx mcg (5,000 unit) capsule carvedilol 12.5 mg tablet 25 mg PO BID 09/24/24 History furosemide 40 mg tablet 40 mg PO Q12H FLUID RETENTIO N 09/24/24 Unknown History magnesium 200 mg tablet 400 mg PO DAILY 09/24/24 Unk nown History pantoprazole 40 mg tablet,delayed 40 mg PO Q12H reflux 09/24/24 Unknown History release potassium chloride 20 mEq 20 meq PO DAILY supplement 0 09/24/24 Unknown History tablet,extended release(part/cryst) Allergy/AdvReac Type Severity Reaction Status Date / Time lisinopril Allergy edema Verified 09/27/24 06:01 aspirin AdvReac Upset Verified 09/27/24 06:01 Stomach Family History Mother Heart disease Surgical History History of thyroid surgery History of carotid angioplasty History of kidney stones History of basal cell carcinoma excision History of total hysterectomy Social History household members: none housing: house Smoking Status: Former smoker how long ago did patient quit smokin years ago alcohol intake: current alcohol intake frequency: holidays/special occasions only details: rare substance use type: does not use caffeine: Yes Type: coffee Number of servings: 1 Prior Cardiac Testing/Procedures Prior Cardiac Testing/Procedures: Echocardiogram (Interpretation Summary Normal left ventricle. Left ventricular systolic function is normal. The left ventricular ejection fraction is 70 %. Pulmonary artery systolic pressure is 30 mmHg.) Addt'l Information Additional Findings: EKG: SR with PACs, RBBB Review of Systems (Anesthesia) ROS Narrative System reviewed and no additional complaints, except as documented. Physical Exam Const alert, oriented x3 and average body habitus Resp normal respiratory effort and clear to auscultation bilaterally Resp Narrative: Decreased breath sounds Auscultation: clear to auscultation bilaterally Cardio regular rate, regular rhythm, no murmurs and diaphoretic
--- NOTE | 2024-09-27 06:41 | PCM.HP.STD ---
HPI - General General Date of Admission: 09/27/24 Date of Service: 09/27/24 Chief Complaint: dysphagia HPI Narrative DICK ARTIS, is a 89 F who presents for treatment of achalasia PT was hospitalized in August of 2023 for NSTEMI and COPD exacerbation. She was found to have down trending hemoglobin and underwent EGD. EGD 09.16.23; - LA Grade D erosive esophagitis with bleeding. Treated with a heater probe. - Non-bleeding gastric ulcers with no stigmata of bleeding. Biopsied. - Acute duodenitis. Biopsied OV 9.5.24 ; Patient has been doing well from GI standpoint up until recently when she had an episode of choking. She was eating a chicken wing when she stated to choke on it. She presented to the ED for this and was ultimately sent home after normal chest x-ray. After being sent home she had numerous episodes of vomiting which subsided after a few days. Since then she has had no further problems besides some break through heartburn. She continues to take Pantoprazole daily. EGD 04.19.24; - Abnormal esophageal motility, consistent with aperistalsis. Dilated. - Small hiatal hernia. - Gastric mucosal variant. Biopsied. - A few duodenal polyps. Resected and retrieved. OV 10.15.24; Pt continues to have episodes of choking and vomiting. Since her EGD she has had two episodes of choking. She has not been able to identify foods that trigger it but it is sometimes meat. She has had two episodes of heartburn since her EGD. She has been taking pantoprazole 40 mg just once a day. *start amitriptyline 10 mg daily *amitriptyline discontinued [facility] admission 06.06.24-06.08.24 w/ severe hypomagnesia, hypocalcemia, and diverticulitis after presentation to the ED with confusion. OV 1.17.25; Pt continues to have issues with swallowing. She is having issues with all foods and has not identified any specific triggers. She continues taking pantoprazole 40 mg daily. Denies n/v, constipation, diarrhea or abd pain. [facility] Medical History Cancer Thyroid disease Ambulates with cane History of renal disease TIA (transient ischemic attack) Acute diverticulitis Wears glasses Wears dentures Arthritis Low iron Anemia High cholesterol Migraine headache Restless legs Difficulty chewing History of diverticulitis Heartburn Gastric reflux Former smoker On home oxygen therapy Shortness of breath on exertion Chronic cough History of edema History of echocardiogram History of stress test Cardiology follow-up encounter Hypertension Chronic hypoxic respiratory failure History of diabetes mellitus History of hypertension Diverticulitis History of chronic heart failure History of COPD COPD (chronic obstructive pulmonary disease) Anemia Chronic heart failure with preserved ejection fraction (HFpEF) Hyperlipidemia Right lumbar radiculopathy CKD (chronic kidney disease), stage III Hypertension Chronic kidney disease PAD (peripheral artery disease) Renal cyst History of TIA (transient ischemic attack) Bilateral carotid artery stenosis Claudication RLS (restless legs syndrome) Diverticulosis TIA (transient ischemic attack) Vertigo Leg edema Dyslipidemia Home Medications ?Medication ?Instructions ?Recorded ?Last Taken ?Type atorvastatin 40 mg tablet 40 mg PO QHS cholesterol 02/22/16 10/04/23 21:55 History clopidogrel 75 mg tablet 75 mg PO DAILY BLOOD THINNER 02/22/16 09/21/24 History albuterol sulfate 90 mcg/actuation 2 puff inhalation BID PRN 03/16/18 09/27/24 History aerosol inhaler shortness of breath or wheezing pramipexole 1.5 mg tablet 1.5 mg PO QHS restless leg syndrome 08/18/23 10/04/23 21:55 History budesonide 0.5 mg/2 mL suspension 0.25 mg inhalation BID breathing 09/09/23 09/27/24 Rx for nebulization 30 days #0 mL polysaccharide iron complex 150 mg 150 mg PO DAILY supplement 30 days 10/12/23 09/21/24 Rx iron capsule (Ferrex) #30 caps acetaminophen 500 mg tablet 1,000 mg PO Q6H PRN pain 02/14/24 Unknown History arformoterol 15 mcg/2 mL solution 15 mcg inhalation BID breathing 02/14/24 09/27/24 History for nebulization duloxetine 20 mg capsule,delayed 60 mg PO DAILY mental health 02/14/24 04/19/24 History release spironolactone 25 mg tablet 25 mg PO QDAY diuretic 02/14/24 Unknown History cholecalciferol (vitamin D3) 125 125 mcg PO DAILY 30 days #30 caps 06/08/24 Unknown Rx mcg (5,000 unit) capsule carvedilol 12.5 mg tablet 25 mg PO BID 09/24/24 09/27/24 History furosemide 40 mg tablet 40 mg PO Q12H FLUID RETENTION 09/24/24 Unknown History magnesium 200 mg tablet 400 mg PO DAILY 09/24/24 Unknown History pantoprazole 40 mg tablet,delayed 40 mg PO Q12H reflux 09/24/24 Unknown History release potassium chloride 20 mEq 20 meq PO DAILY supplement 09/24/24 Unknown History tablet,extended release(part/cryst) Allergy/AdvReac Type Severity Reaction Status Date / Time lisinopril Allergy edema Verified 09/27/24 06:01 aspirin AdvReac Upset Verified 09/27/24 06:01 Stomach Family History Mother Heart disease Surgical History History of thyroid surgery History of carotid angioplasty History of kidney stones History of basal cell carcinoma excision History of total hysterectomy Social History household members: none housing: house Smoking Status: Former smoker how long ago did patient quit smokin years ago alcohol intake: current alcohol intake frequency: holidays/special occasions only details: rare substance use type: does not use caffeine: Yes Type: coffee Number of servings: 1 ROS Constitutional Constitutional: Denies fatigue, fever(s), poor appetite, weight gain or weight loss Gastrointestinal Gastrointestinal: Denies belching, bloating, change in bowel habits, change in stool character, chewing difficulty, coffee ground emesis, constipation, cramping, diarrhea, dyspepsia, dysphagia, early satiety, excessive flatus, fecal incontinence, heartburn, hematemesis, hematochezia, hemorrhoids, loose stools, melena, nausea, odynophagia, rectal bleeding, tenesmus, vomiting or weight changes Vital Signs Vital Signs Vital Signs: 09/27/24 06:03 09/27/24 06:03 09/27/24 06:33 Temperature 97.8 F 97.8 F Temperature Source Temporal Pulse Rate 75 75 Respiratory Rate 18 18 Respiratory Pattern Normal Blood Pressure 157/57 H 157/57 H Blood Pressure Mean 90 Blood Pressure Source Monitor Blood Pressure Position Semi-Fowlers Blood Pressure Location Left Arm Pulse Ox 98 98 Oxygen Delivery Method Room Air Nasal Cannula Oxygen Flow Rate (L/min) 4 Weight Weight: 144 lb 13.499 oz Body Mass Index (BMI) 26.0 Physical Exam Const alert, oriented x3, no apparent distress and healthy appearing General Appearance: cooperative GI normal to inspection, nondistended, normoactive bowel sounds, soft to palpation, non-tender and non-distended Percussion: normal to percussion Rectal Exam: deferred Assessment & Plan Assessment/Plan (1) Achalasia: PLAN: Assessment and Plan Assessment and Plan (1) Esophageal dysmotility: Status: Acute Plan: This is an 88 yo female pt with difficulty swallowing due to abnormal esophageal motility. Last EGD in April 2024 showing spastic lower esophageal sphincter and extra peristaltic waves in the esophagus. This was dilated. She has been on treatment for esophageal dysmotility with amitriptyline which has not provided relief. She will undergo EGD with botox injections for treatment. She is agreeable to this. -EGD with botox and dilation -Continue PPI -f/u after procedure (2) Achalasia: Status: Acute
[2024-09-27] MEDS: 0.9% Normal Saline (Pres. free 10 ML Vial (06:57)
[2024-09-27] MEDS: Botulinum Toxin A 100 Units Vial IJ (06:57)
[2024-09-27] MEDS: 0.9% Saline Lock 10 ML Syringe IV (06:58)
--- NOTE | 2024-09-27 07:10 | PCM.POST.ANE ---
Anesthesia: Postop Eval I Current Vital Signs Temperature: 97.2 F Pulse Rate: 67 Blood Pressure: 77/47 Respiratory Rate: 16 Pulse Ox: 98 Oxygen Delivery Method: Nasal Cannula Oxygen Flow Rate (L/min): 2 Assessment Airway patent: Yes Spontaneous unlabored respirations: Yes Mental status: Asleep nausea: No Vomiting: No Anesthesia Complication: Yes Anesthesia Complication Comment:: hypotension Fluid Hydration Crystalloid volume administer (ml): 30 Total IV fluid infused: 30 Progress Note Anesthesia document: Postop Eval 1 completed: Yes
--- NOTE | 2024-09-27 07:11 | OP.CCLET_ITS ---
09/27/2024 Viktoriya Lamb [address] [place] [address] Re : Upper GI endoscopy procedure for Chanel Rousseau Dear Dr. Lamb This procedure was performed on September. My impressions and recommendations are as follows: Impressions : - Achalasia. Injected with botulinum toxin. - No gross lesions in the entire stomach. - No gross lesions in the first portion of the duodenum. - No specimens collected. Recommendations : - Discharge patient to home. - Resume previous diet. - Continue present medications. My findings are described in the full procedure note, which is enclosed. If I can be of further assistance, please feel free to contact me at . Sincerely, Teodoro Real, 09/27/2024 7:09:56 AM This report has been signed electronically.
--- NOTE | 2024-09-27 07:11 | OP.EGD_ITS ---
Patient Name: Chanel Rousseau Procedure Date: 09/27/2024 6:30 AM Date of : 1935 Age: 89 Procedure: Upper GI endoscopy Indications: Dysphagia Providers: Teodoro Real DO Referring MD: Viktoriya Lamb Medicines: Monitored Anesthesia Care Patient Profile: This is an 89 year old female. Refer to note in patient chart for documentation of history and physical. Patient has symptoms of dysphagia with both liquids and solids. Complications: No immediate complications. Procedure: Pre-Anesthesia Assessment: - Prior to the procedure, a History and Physical was performed, and patient medications and allergies were reviewed. The patient is competent. The risks and benefits of the procedure and the sedation options and risks were discussed with the patient. All questions were answered and informed consent was obtained. Patient identification and proposed procedure were verified by the physician in the pre-procedure area. Mental Status Examination: alert and oriented. Airway Examination: normal oropharyngeal airway and neck mobility. Respiratory Examination: clear to auscultation. CV Examination: normal. Prophylactic Antibiotics: The patient does not require prophylactic antibiotics. Prior Anticoagulants: The patient has taken no anticoagulant or antiplatelet agents. ASA Grade Assessment: II - A patient with mild systemic disease. After reviewing the risks and benefits, the patient was deemed in satisfactory condition to undergo the procedure. The anesthesia plan was to use monitored anesthesia care (MAC). Immediately prior to administration of medications, the patient was re-assessed for adequacy to receive sedatives. The heart rate, respiratory rate, oxygen saturations, blood pressure, adequacy of pulmonary ventilation, and response to care were monitored throughout the procedure. The physical status of the patient was re-assessed after the procedure. After obtaining informed consent, the endoscope was passed under direct vision. Throughout the procedure, the patient's blood pressure, pulse, and oxygen saturations were monitored continuously. The Endoscope was introduced through the mouth, and advanced to the second part of duodenum. The upper GI endoscopy was accomplished without difficulty. The patient tolerated the procedure well. Scope In: 6:53:20 AM Scope Out: 7:00:31 AM Total Procedure Duration Time 0 hours 7 minutes 11 seconds Findings: No appreciable esophageal motility was noted. In addition, a hypertonic lower esophageal sphincter was found. There was moderate resistance to endoscope advancement into the stomach. The Z-line was regular. The gastroesophageal junction and cardia were normal on retroflexed view. Area was successfully injected with 100 units botulinum toxin. No gross lesions were noted in the entire examined stomach. No gross lesions were noted in the first portion of the duodenum. Impression: - Achalasia. Injected with botulinum toxin. - No gross lesions in the entire stomach. - No gross lesions in the first portion of the duodenum. - No specimens collected. Recommendation: - Discharge patient to home. - Resume previous diet. - Continue present medications. Procedure Code(s): --- Professional --- 96838, Esophagogastroduodenoscopy, flexible, transoral; with directed submucosal injection(s), any substance CPT copyright 2021 [employer]. All rights reserved. The codes documented in this report are preliminary and upon acquisitions analyst review may be revised to meet current compliance requirements. Teodoro Real DO 09/27/2024 7:09:56 AM This report has been signed electronically. Number of Addenda: 0 Note Initiated On: 09/27/2024 6:30 AM
[2024-09-27] MEDS: 0.9% Normal Saline (500mL Bag) 500 ML 200 ML IV (07:17)
--- NOTE | 2024-09-27 11:23 | PCM.POSTANE2 ---
Anesthesia Postop Eval I Sum Postop Eval Completion status Anesthesia document: Postop Eval 1 completed: Yes Anesthesia Postop Eval I Summary Anesthesia Postop Eval I Summary: Anesthesia Postop Eval I: Assessment Summary Airway patent Yes 09/27/24 07:12 [email or web address] Spontaneous unlabored Yes 09/27/24 07:12 [email or web address] respirations Mental status Asleep 09/27/24 07:12 [email or web address] nausea No 09/27/24 07:12 [email or web address] Vomiting No 09/27/24 07:12 [email or web address] Anesthesia Postop Eval I: Fluid Summary Crystalloid volume administer 30 09/27/24 07:12 [email or web address] (ml) Colloids volume administered ( ml) Blood Product volume administered (ml) Total IV fluid infused 30 09/27/24 07:12 [email or web address] Anesthesia Postop Eval I: Summary Notes Anesthesia Complication Yes 09/27/24 07:12 [email or web address] Anesthesia Complication hypotension 09/27/24 07:12 [email or web address] Comment: Post-operative progress note Anesthesia: Postop Eval II Evaluation Mental status: Awake Pain Level: 0 nausea: No Vomiting: No Complications Anesthesia Complication: No
== END 2024-09-27 09:32 | disposition home or self-care (01) ==
LOC: EN 05:34 → AC 05:34
PROVIDERS: PCP Internal Medicine; Referring Provider Internal Medicine; Visit Provider Internal Medicine Gastroenterology
PROC: 0DJ08ZZ Inspection of Upper Intestinal Tract, Via Natural or Artificial Opening Endoscopic (ICD-10-PCS; CPT 43235; principal; 2024-09-27 06:25)
DX: K22.0 Achalasia of cardia (principal); I50.32 Chronic diastolic (congestive) heart failure; I13.0 Hypertensive heart and chronic kidney disease with heart failure and stage 1 through stage 4 chronic kidney disease, or unspecified chronic kidney disease; J44.9 Chronic obstructive pulmonary disease, unspecified; E11.22 Type 2 diabetes mellitus with diabetic chronic kidney disease; N18.30 Chronic kidney disease, stage 3 unspecified; K21.00 Gastro-esophageal reflux disease with esophagitis, without bleeding; D64.9 Anemia, unspecified; R13.10 Dysphagia, unspecified; E78.00 Pure hypercholesterolemia, unspecified; K44.9 Diaphragmatic hernia without obstruction or gangrene; E07.9 Disorder of thyroid, unspecified; Z79.51 Long term (current) use of inhaled steroids; Z79.899 Other long term (current) drug therapy; I25.2 Old myocardial infarction; Z87.19 Personal history of other diseases of the digestive system; Z86.73 Personal history of transient ischemic attack (TIA), and cerebral infarction without residual deficits; Z87.891 Personal history of nicotine dependence
CPT/HCPCS: 43236; A4216; J0585; J2405

== ENCOUNTER → 2024-11-02 | Outpatient (CLI) | payer MEDICARE, SELFPAY ==
--- NOTE | 2024-11-02 08:45 | CDU_ITS ---
Reason For Study Reason For Study: Bilateral carotid bruit Rt. Velocities/BP Lt. Velocities/BP Prox CCA 51.3/12.6 cm/sec. Prox CCA 72.9/16.8 cm/sec. Mid CCA 65.5/20.1 cm/sec. Mid CCA 47.6/19 cm/sec. Dist CCA 68.3/15.4 cm/sec. Dist CCA 135.6/31.9 cm/sec. Prox ICA 209.1/36.5 cm/sec. Prox ICA 151.1/18.9 cm/sec. Mid ICA 159.4/26.8 cm/sec. Mid ICA 112.6/38 cm/sec. Dist ICA 111.3/24.8 cm/sec. Dist ICA 95.5/27.9 cm/sec. Rt. ICA/CCA = 3.19. Lt. ICA/CCA = 3.17. Prox ECA 656.1/34 cm/sec. Prox ECA 221.1/3.4 cm/sec. Rt. Vert. 75.4/15.2 cm/sec. Lt. Vert. 30.1/7.3 cm/sec. Right Extracranial There is heterogeneous, irregular atherosclerotic plaque noted in the right common carotid artery. There is heterogeneous, irregular atherosclerotic plaque noted in the right internal carotid artery. There is heterogeneous, irregular atherosclerotic plaque noted in the right external carotid artery. Antegrade flow is noted in the right vertebral artery. Left Extracranial There is heterogeneous, irregular atherosclerotic plaque noted in the left common carotid artery. There is heterogeneous, irregular atherosclerotic plaque noted in the left internal carotid artery. There is heterogeneous, irregular atherosclerotic plaque noted in the left external carotid artery. Antegrade flow is noted in the left vertebral artery. Procedure Carotid Duplex [id number]. This is a Carotid Duplex examination using B-mode, color flow and specral Doppler. Exam performed in department. VL/Carotid Duplex Ultrasound Interpretation Summary Moderate (50-69%) stenosis right extracranial internal carotid. Moderate (50-69%) stenosis left extracranial internal carotid. Patent and antegrade vertebrals bilaterally. Ordering Physician: Dudley Thompson Referring Physician: Viktoriya Lamb Performed By: Cynthia Max RVT
== END | disposition home or self-care (01) ==
LOC: CVS 08:44
PROVIDERS: PCP Internal Medicine; Referring Provider Internal Medicine Cardiovascular Disease; Visit Provider Internal Medicine Cardiovascular Disease
DX: R09.89 Other specified symptoms and signs involving the circulatory and respiratory systems (principal)
CPT/HCPCS: 93880

== ENCOUNTER 2024-11-28 13:31 | Emergency (ER) | payer MEDICARE, SELFPAY ==
[2024-11-28 13:32] VITALS: BP 118/45; PULSE 79; RESP 16; TEMP 36.3; O2SAT 95
[2024-11-28 13:40] VITALS: BMI 26.3
--- NOTE | 2024-11-28 14:01 | ED.VIS.GI ---
HPI HPI - GI History of Present Illness Chief Complaint: Abd Pain Detail of Chief Complaint: Abdominal pain Informant: patient Narrative Narrative: Patient presents to the emergency department with complaint of abdominal pain that started yesterday. Describes the pain as sharp and stabbing to the left lower quadrant. She has history of diverticulitis. She denies fever or chills or sweats. She denies nausea or vomiting. She denies urinary symptoms. She denies blood in her stool or black tarry stool. Patient's had prior hysterectomy. No other abdominal surgeries. Currently rates her pain a 5 or 6 out of 10. [facility] Medical History (Updated 11/28/24 @ 15:[address] Tamanna Disla, DO) History of chronic heart failure Cancer Thyroid disease Ambulates with cane History of renal disease TIA (transient ischemic attack) Acute diverticulitis Wears glasses Wears dentures Arthritis Low iron Anemia High cholesterol Migraine headache Restless legs Difficulty chewing History of diverticulitis Heartburn Gastric reflux Former smoker On home oxygen therapy Shortness of breath on exertion Chronic cough History of edema History of echocardiogram History of stress test Cardiology follow-up encounter Hypertension Chronic hypoxic respiratory failure History of diabetes mellitus History of hypertension Diverticulitis History of COPD COPD (chronic obstructive pulmonary disease) Anemia Chronic heart failure with preserved ejection fraction (HFpEF) Hyperlipidemia Right lumbar radiculopathy CKD (chronic kidney disease), stage III Hypertension Chronic kidney disease PAD (peripheral artery disease) Renal cyst History of TIA (transient ischemic attack) Bilateral carotid artery stenosis Claudication RLS (restless legs syndrome) Diverticulosis TIA (transient ischemic attack) Vertigo Leg edema Dyslipidemia Home Medications ?Medication ?Instructions ?Recorded ?Last Taken ?Type atorvastatin 40 mg tablet 40 mg PO QHS cholesterol 02/22/16 11/27/24 History clopidogrel 75 mg tablet 75 mg PO DAILY BLOOD THINNER 02/22/16 11/28/24 History albuterol sulfate 90 mcg/actuation 2 puff inhalation Q4H PRN 03/16/18 09/27/24 History aerosol inhaler shortness of breath or wheezing pramipexole 1.5 mg tablet 1.5 mg PO QHS restless leg syndrome 08/18/23 11/27/24 History polysaccharide iron complex 150 mg 150 mg PO DAILY supplement 30 days 10/12/23 11/28/24 Rx iron capsule (Ferrex) #30 caps acetaminophen 500 mg tablet 1,000 mg PO Q6H PRN pain 02/14/24 Unknown History arformoterol 15 mcg/2 mL solution 15 mcg inhalation BID breathing 02/14/24 11/28/24 History for nebulization duloxetine 20 mg capsule,delayed 60 mg PO DAILY mental health 02/14/24 11/28/24 History release spironolactone 25 mg tablet 25 mg PO DAILY diuretic 02/14/24 11/28/24 History cholecalciferol (vitamin D3) 125 125 mcg PO DAILY 30 days #30 caps 06/08/24 11/28/24 Rx mcg (5,000 unit) capsule furosemide 40 mg tablet 40 mg PO BID FLUID RETENTION 09/24/24 11/28/24 History pantoprazole 40 mg tablet,delayed 40 mg PO BID reflux 09/24/24 11/28/24 History release budesonide 0.5 mg/2 mL suspension 0.5 mg inhalation BID breathing 11/28/24 11/28/24 History for nebulization carvedilol 25 mg tablet 25 mg PO BID 11/28/24 11/28/24 History magnesium oxide 400 mg PO DAILY 11/28/24 11/28/24 History potassium chloride 20 mEq/15 mL 20 meq PO DAILY 11/28/24 11/28/24 History oral liquid Allergy/AdvReac Type Severity Reaction Status Date / Time lisinopril Allergy edema Verified 11/28/24 13:34 aspirin AdvReac Upset Verified 11/28/24 13:34 Stomach Family History Mother Heart disease Surgical History History of thyroid surgery History of carotid angioplasty History of kidney stones History of basal cell carcinoma excision History of total hysterectomy Social History household members: none housing: house Smoking Status: Former smoker how long ago did patient quit smokin years ago alcohol intake: current alcohol intake frequency: holidays/special occasions only details: rare substance use type: does not use caffeine: Yes Type: coffee Number of servings: 1 ROS ROS ED Review of Systems ROS Unobtainable: other Constitutional Constitutional ED: Reports lethargy; Denies chills, fever(s), sweats or weight loss Eyes Eyes: Denies blurry vision, change in vision or diplopia ENT ENT ED: Denies rhinorrhea or sore throat Cardiovascular Cardiovascular: Denies chest pain, orthopnea or racing heartbeat Respiratory/Chest Respiratory/Chest: Denies cough, dyspnea, dyspnea on exertion, orthopnea or sputum Gastrointestinal Gastrointestinal: Reports abdominal pain; Denies diarrhea, nausea or vomiting Genitourinary Genitourinary ED: Denies dysuria, hematuria or urinary frequency Musculoskeletal Musculoskeletal: Denies arthralgias, back pain, myalgias or neck pain Integumentary Denies abscess, Abrasions or rash Neurologic Neurologic: Denies headache(s) or weakness Psychiatric Psychiatric: Denies anxiety, depression or suicidal thoughts Endocrine Endocrinology: Denies polydipsia, polyphagia or polyuria Hematologic/Lymphatic Hematologic/Lymphatic: Denies easy bleeding, easy bruising or lymphadenopathy Allergic/Immunologic Allergic/Immunologic ED: Denies mouth swelling, tongue swelling or urticaria EXAM Physical Exam Const Vital Signs: 11/28/24 13:32 Temperature 97.4 F L Temperature Source Oral Pulse Rate 79 Respiratory Rate 16 Blood Pressure 118/45 L Blood Pressure Mean 69 Pulse Ox 95 Oxygen Delivery Method Nasal Cannula Oxygen Flow Rate (L/min) 2 Positive well nourished and well developed General Appearance ED: well developed and NAD HEENT Reports TM's clear and moist mucous membranes normocephalic and atraumatic; Negative for trauma or tenderness Tympanic Membrane ED: Yes TM's clear Eyes PERRL and EOMs intact bilaterally General Eye ED: Negative for pale conjunctiva or scleral icterus Neck no lymphadenopathy, supple and no JVD General: Negative for tenderness Chest Wall inspection of chest normal and palpation of chest normal Chest: Negative for tenderness Resp normal respiratory effort and clear to auscultation bilaterally Resp Narrative: Occasional faint expiratory wheezes bilaterally. Effort and Inspection: Negative for respiratory distress or pain with movement Auscultation: Negative for rhonchi, wheezes or diminished lung sounds Cardio regular rate, regular rhythm, S1 normal heart sound, S2 normal heart sound and no murmurs Peripheral Pulses: pulses 2+ throughout GI normal to inspection, nondistended, normoactive bowel sounds, soft to palpation, non-distended and no masses GI Narrative: Tenderness to palpation over the left lower quadrant with some guarding. There is no rebound, rigidity, or peritoneal signs. Back/Spine no CVA tenderness and no thoracic nor lumbar tenderness Extremity normal to inspection General Extremety ED: Negative for edema General Extremity: Negative for edema Neuro oriented x3, CN's II-XII intact bilaterally, no sensory deficits noted and gait normal Sensorium / Orientation: awake, alert, oriented to person, oriented to place and oriented to time Motor Exam: strength 5/5 throughout and strength abnormal Psych mental status grossly normal Skin no rashes or lesions noted and no wounds MDM MDM MDM Narrative Medical decision making narrative: Patient presents with left lower quadrant abdominal pain with history of prior episodes of diverticulitis. She denies any blood in her stool or black tarry stool. Denies significant urinary symptoms. IV line established. CBC with differential obtained showed white count of 8.8 with hemoglobin 10.0 and platelet count of 131. Chemistries unremarkable. BUN 49 and creatinine 1.68. Lactate slightly elevated 2.2. CT scan of the abdomen pelvis performed without contrast given patient's low GFR showed no acute disease process. She had a mass in her right kidney that was stable. Patient is aware of this finding and has an outpatient ultrasound ordered to be evaluated further and states she has a physician following it. Urinalysis ordered and pending. I have low suspicion for ischemic bowel disease. Care of patient turned over to evening physician awaiting urinalysis results and final disposition. Lab Data Attestation: I reviewed the patient's lab results. Labs: Laboratory Results - last 24 hr 11/28/24 14:00 WBC 8.8 RBC 3.10 L Hgb 10.0 L Hct 30.7 L MCV 99.0 MCH 32.3 H MCHC 32.6 RDW Std Deviation 49.4 H RDW Coeff of Ha 13.5 Plt Count 131 L MPV 10.8 Immature Gran % (Auto) 0.200 Neut % (Auto) 80.7 H Lymph % (Auto) 9.2 L Coffee % (Auto) 8.6 Eos % (Auto) 1.1 Baso % (Auto) 0.2 Absolute Neuts (auto) 7.1 Absolute Lymphs (auto) 0.81 L Nucleated RBC % 0 Sodium 138 Potassium 4.0 Chloride 98 Carbon Dioxide 28.4 Anion Gap 12 BUN 49 H Creatinine 1.68 H Estim Creat Clear Calc 21.09 L Est GFR (MDRD) Non-Af 29 L BUN/Creatinine Ratio 29.1 H Glucose 128 H Lactic Acid 2.2 H* Calcium 8.7 Radiography Diagnostic Testing: Clinical Impression(s) from Imaging Studies Abdomen/Pelvis CT 11/28/24 15:01 IMPRESSION: Sigmoid diverticulosis. Questionable tiny gallstone in the fundal portion of the gallbladder versus tiny gallstone. Tiny nonobstructive left intrarenal calculi. OVERALL FINAL ASSESSMENT: . LI-RADS is not meant to be used in patients <18 years or patients with cirrhosis due to congenital hepatic fibrosis or due to vascular disorders, because these patients have a lower chance of developing HCC. Reading Location: [id number] Discharge Plan Triage Chief Complaint: Abd Pain ED Provider: Tamanna Disla Dx/Rx/DC Orders Clinical Impression: Abdominal pain Prescriptions: No Action acetaminophen 500 mg tablet 1,000 mg PO Q6H PRN (Reason: pain) arformoterol 15 mcg/2 mL solution for nebulization 15 mcg inhalation BID duloxetine 20 mg capsule,delayed release(DR/EC) 60 mg PO DAILY spironolactone 25 mg tablet 25 mg PO DAILY atorvastatin 40 MG tablet 40 mg PO QHS clopidogrel 75 MG tablet 75 mg PO DAILY albuterol sulfate 90 mcg/actuation HFA aerosol inhaler 2 puff INHALATION Q4H PRN (Reason: shortness of breath or wheezing) pramipexole 1.5 mg tablet 1.5 mg PO QHS cholecalciferol (vitamin D3) 125 mcg (5,000 unit) Capsule 125 mcg PO DAILY 30 Days Qty: 30 0RF carvedilol 25 mg tablet 25 mg PO BID magnesium oxide 400 mg magnesium capsule 400 mg PO DAILY potassium chloride 20 mEq/15 mL liquid 20 meq PO DAILY budesonide 0.5 mg/2 mL suspension for nebulization 0.5 mg inhalation BID polysaccharide iron complex [Ferrex 150] 150 mg iron Capsule 150 mg PO DAILY 30 Days Qty: 30 0RF furosemide 40 mg tablet 40 mg PO BID pantoprazole 40 mg Tablet,Delayed Release (Dr/Ec) 40 mg PO BID Primary Care Provider: Viktoriya Lamb Referrals: Viktoriya Lamb MD [Primary Care Provider] - Print Language: Korean
[2024-11-28] MEDS: 0.9% Normal Saline (1000mL) 1,000 ML 125 ML IV (14:10)
[2024-11-28 14:15] LABS: Absolute Lymphocyte Count 0.81 X10^3/uL (0.83-4.51); Absolute Neutrophil Count 7.1 X10^3/uL (2.0-7.7); Basophil# 0.02 X10^3/uL; Basophil% 0.2 % (0-1); Eosinophils% 1.1 % (0-5); Hematocrit 30.7 % (37-47); Lymphocyte # 0.81 X10^3/ul (0.83-4.51); Lymphocyte % 9.2 % (19-41); Mean Corp Hgb Conc 32.6 g/dL (32-36); Mean Corpuscular Hgb 32.3 pg (27.0-32.0); Mean Platelet Vol. 10.8 fl (6.2-12.0); Monocyte# 0.76 X10^3/uL; Monocyte% 8.6 % (0-10); NRBC Flagged by Analyzer 0 % (0-5); Neutrophil # 7.08 X10^3/uL (2.7-7.7); Neutrophil % 80.7 % (47-70); Platelet Count 131 K/mm3 (150-450); RBC Distribution Width CV 13.5 % (11.6-14.6); RBC Distribution Width SD 49.4 fl (35.1-43.9); White Blood Count 8.8 K/mm3 (4.4-11.0)
[2024-11-28 14:46] LABS: Anion Gap 12 (5-15); BUN 49 mg/dL (4-19); BUN/Creat Ratio 29.1 RATIO (10-20); Calcium,Total 8.7 mg/dL (7.6-11.0); Carbon Dioxide 28.4 mmol/L (21.0-32.0); Chloride 98 mmol/L (98-108); Creatinine, Serum 1.68 mg/dL (0.70-1.20); EST Glomerular Filtration Rate 29 (>60); Estimated Creatinine Clearance 21.09 ml/min (50-250); Glucose 128 mg/dL (70-99); Sodium Level 138 mmol/L (133-145)
[2024-11-28 14:49] LABS: Lactic Acid 2.2 mmol/L (0.0-2.0)
--- NOTE | 2024-11-28 15:01 | CT_ITS ---
PROCEDURE: ABDOMEN/PELVIS WITHOUT CONT 11/28/2024 REASON FOR EXAM: 1 day history of abdominal pain. TECHNIQUE: Abdomen and pelvis CT without intravenous contrast. Noncontrast technique limits evaluation of the abdominal and pelvic viscera. Coronal and Sagittal reconstruction series were provided. One or more dose reduction techniques were used (e.g., Automated exposure control, adjustment of the mA and/or kV according to patient size, use of iterative reconstruction technique). PATIENT PREPARATION: Per protocol ORAL CONTRAST TYPE: None. CT dL volume: 6.97 mGy. DLP: 335.93 COMPARISON: Prior examination dated June 06, 2024. FINDINGS: Lung bases: Stable volume loss in the right middle lobe. Coronary artery calcification. Liver: Unremarkable. Gallbladder: stable 4 mm dense nodule along the fundal portion of the gallbladder suggestive of either a tiny gallstone or gallbladder polyp. Spleen: Normal size. Pancreas: Subcentimeter cyst in the tail portion of the pancreas. This is unchanged. Adrenals: Stable 1.3 cm left adrenal nodule suggestive of adenoma. Kidneys: Stable 4.3 cm solid mass in the upper pole of the right kidney. Renal atrophy. Right renal cysts. Tiny nonobstructive left intrarenal calculi. Bladder: Unremarkable Reproductive Organs: Prior hysterectomy. Adnexal regions are unremarkable. Bowel: Colonic diverticulosis without diverticulitis. Appendix: The appendix is not identified. There is no inflammatory process identified in the right lower quadrant to suggest appendicitis. Lymph nodes: None Vasculature: Mild diffuse atherosclerotic calcifications of the abdominal aorta and the major visceral branches are noted. Peritoneum / Retroperitoneum: Unremarkable Bones: Degenerative changes of the spine. CT/Abdomen/Pelvis without Cont IMPRESSION: Sigmoid diverticulosis. Questionable tiny gallstone in the fundal portion of the gallbladder versus tin y gallstone. Tiny nonobstructive left intrarenal calculi. OVERALL FINAL ASSESSMENT: . LI-RADS is not meant to be used in patients <18 years or patients with cirrhosi s due to congenital hepatic fibrosis or due to vascular disorders, because these patients have a lower chance of developing HC C. Reading Location: [id number]
[2024-11-28 15:32] VITALS: BP 104/45; PULSE 74; RESP 16; O2SAT 99
[2024-11-28] MEDS: Morphine 4 MG/ML Syringe IV (15:37)
[2024-11-28] MEDS: Ondansetron 4 MG/2 ML Vial IV (15:37)
[2024-11-28] MEDS: 0.9% Normal Saline (1000mL) 1,000 ML 999 ML IV (15:53)
[2024-11-28 16:01] LABS: Bacteria 0 SEEN /hpf (None Seen); Mucous, Urine 0 SEEN /hpf (<or=2+)
[2024-11-28 16:19] LABS: Color, Urine Yellow (Yellow); Glucose, Dipstick Normal (Normal); Ketone-Dipstick Negative (Negative); Leukocyte Esterase-Dipstick 500 /ul (Negative); Nitrite-Dipstick Negative (Negative); Occult Blood-Urine Negative /ul (Negative); Protein-Dipstick 30 mg/dl (Negative); Specific Gravity, Urine 1.005 (1.002-1.030); Urine Bilirubin Dipstick Negative (Negative); Urine Clarity Clear (Clear); Urine Urobilinogen Normal (Normal)
[2024-11-28 17:00] VITALS: BP 105/42; PULSE 74; RESP 20; O2SAT 100
[2024-11-28 17:16] LABS: Red Blood Cells-Urine 0-5 SEEN /hpf (0-5); White Blood Cells 5-10 SEEN /hpf (0-5)
[2024-11-28 17:17] LABS: Squamous Epithelial Cells - UA 0-5 SEEN /hpf (5-10)
[2024-11-28 18:02] LABS: Lactic Acid < 1.0 mmol/L (0.0-2.0)
[2024-11-28 18:05] LABS: Reflex Lactate? Y
[2024-11-28] MEDS: metroNIDAZOLE 500 MG Tablet PO (18:38)
[2024-11-28] MEDS: Ciprofloxacin 500 MG Tablet PO (18:38)
[2024-11-28 18:39] VITALS: BP 105/42; PULSE 74; RESP 20; TEMP 37; O2SAT 100
== END 2024-11-28 18:39 | disposition home or self-care (01) ==
PROVIDERS: Emergency Medicine; Emergency Provider Emergency Medicine; PCP Internal Medicine; Visit Provider Emergency Medicine
DX: K57.90 Diverticulosis of intestine, part unspecified, without perforation or abscess without bleeding (principal); I13.0 Hypertensive heart and chronic kidney disease with heart failure and stage 1 through stage 4 chronic kidney disease, or unspecified chronic kidney disease; I50.32 Chronic diastolic (congestive) heart failure; J44.9 Chronic obstructive pulmonary disease, unspecified; E11.22 Type 2 diabetes mellitus with diabetic chronic kidney disease; N18.30 Chronic kidney disease, stage 3 unspecified; E78.00 Pure hypercholesterolemia, unspecified; N28.89 Other specified disorders of kidney and ureter; Z79.02 Long term (current) use of antithrombotics/antiplatelets; Z79.899 Other long term (current) drug therapy; Z87.891 Personal history of nicotine dependence; Z87.19 Personal history of other diseases of the digestive system; Z86.73 Personal history of transient ischemic attack (TIA), and cerebral infarction without residual deficits
CPT/HCPCS: 74176; 80048; 81001; 83605; 85025; 87086; 87088; 96361; 96374; 96375; 99282; A4216; J2405

== ENCOUNTER → 2024-12-05 | Outpatient (CLI) | payer MEDICARE, SELFPAY ==
--- NOTE | 2024-12-05 10:44 | NEURO ---
NCS and/or EMG Patient Report Ordering Doctor: Tona Shah DATE OF SERVICE: 12/05/24 Chanel presents with pain in the right hand and arm. Electrodiagnostic findings: Right median motor nerve demonstrates prolonged latency with normal amplitude and reduced conduction velocity. Normal right ulnar motor response, including conduction across the elbow. Normal right median ulnar F?wave. Prolonged right median sensory latency at the wrist. Needle EMG testing was performed the right upper limb. All muscles tested showed no evidence of denervation with normal motor unit action potentials. Electrodiagnostic impression: This is an abnormal study in the right upper limb 1. Electrodiagnostic findings suggestive of right-sided median mononeuropathy. This consistent with a mild right carpal tunnel syndrome. 2. No electrodiagnostic evidence is noted for cervical radiculopathy. Multi Select Codes Neurology Neurology Interp Codes: 43758-90 Musc test done w/n test comp (interp) and 15868-64 Nrv cndj tst 5-6 studies (interp)
== END | disposition home or self-care (01) ==
LOC: PSN 09:34
PROVIDERS: PCP Internal Medicine; Referring Provider Physician Assistant; Visit Provider Physician Assistant
DX: M79.641 Pain in right hand (principal)
CPT/HCPCS: 95886; 95909

== ENCOUNTER 2024-12-17 04:41 | Emergency (ER) | payer MEDICARE, SELFPAY ==
[2024-12-17 04:44] VITALS: BP 170/73; PULSE 81; RESP 20; TEMP 36.5; O2SAT 96; BMI 25.1
--- NOTE | 2024-12-17 05:04 | CT_ITS ---
PROCEDURE: CTA ABD/PELVIS W/WO CONTRAST 12/17/2024 REASON FOR EXAM: GI BLEED WITH LLQ PAIN TECHNIQUE: CTA imaging of the abdomen and pelvis with intravenous contrast. Multiplanar and multisequence images were obtained. CONTRAST: Isovue-350 VOLUME: 100 mL Gauge IV One or more dose reduction techniques were used (e.g., Automated exposure control, adjustment of the mA and/or kV according to patient size, use of iterative reconstruction technique). RADIATION DOSE SUMMARY: CTDlvol: 11.9 mGy DLP: 539 mGycm COMPARISON: 11/28/2024. FINDINGS: Diffuse colonic diverticulosis. Moderate diffuse thickening of the colon, more prominent in the rectosigmoid colon, probably colitis without evidence of perforation or pneumatosis coli. No CT evidence of active bleeding during the time of the exam. Prior hysterectomy. 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 Moderate chronic right renal atrophy. Unchanged scattered right renal simple cysts with the largest measuring 4.3 cm. Unchanged nodularity of the left adrenal gland. Atherosclerotic, tortuous ectatic abdominal aorta. Mild stenosis of the origins of the celiac, superior and inferior mesenteric arteries. Well-defined homogeneously enhancing 1.4 cm hemangioma in the segment 4 of the liver. Unchanged small sliding hiatal hernia. Diffuse thickening of the stomach suggestive of gastritis. Mild osteopenia. Mild diffuse spondylosis. Mild chronic compression deformity of L1 vertebral body. The visualized lung bases are unremarkable. Normal remaining liver. Normal gallbladder and extrahepatic biliary system. Normal spleen. Normal pancreas. Normal bilateral adrenal glands. Normal size of the right kidney. There is no right renal mass. There are no right renal calculi. There is no right hydronephrosis. Normal visualized right ureter. Normal size of the left kidney. There is no left renal mass. There are no left renal calculi. There is no left hydronephrosis. Normal visualized left ureter. Normal small intestine. The appendix is visualized and appears normal. There is no demonstrated peritoneal fluid. Normal inferior vena cava. Normal retroperitoneum. Normal urinary bladder. There is no pelvic mass lesion or lymphadenopathy. There is no pelvic fluid. CT/CTA Abd/Pelvis W/WO Contrast IMPRESSION: 1. Diffuse colonic diverticulosis. 2. Moderate diffuse thickening of the colon, more prominent in the rectosigmoid colon, probably colitis without evidence of perforation or pneumatosis coli. 3. No CT evidence of active bleeding during the time of the exam. 4. Prior hysterectomy. 5. 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 6. Moderate chronic right renal atrophy. 7. Unchanged scattered right renal simple cysts with the largest measuring 4.3 cm. 8. Unchanged nodularity of the left adrenal gland. 9. Atherosclerotic, tortuous ectatic abdominal aorta. 10. Mild stenosis of the origins of the celiac, superior and inferior mesenteri c arteries. 11. Well-defined homogeneously enhancing 1.4 cm hemangioma in the segment 4 of the liver. 12. Unchanged small sliding hiatal hernia. 13. Diffuse thickening of the stomach suggestive of gastritis. 14. Mild osteopenia. 15. Mild diffuse spondylosis. 16. Mild chronic compression deformity of L1 vertebral body. Reading [facility]
[2024-12-17 05:15] LABS: Absolute Lymphocyte Count 1.14 X10^3/uL (0.83-4.51); Absolute Neutrophil Count 5.6 X10^3/uL (2.0-7.7); Basophil# 0.02 X10^3/uL; Basophil% 0.3 % (0-1); Eosinophil# 0.07 X10^3/uL; Eosinophils% 0.9 % (0-5); Hematocrit 38.3 % (37-47); Hemoglobin 12.2 g/dL (12.0-15.0); Lymphocyte # 1.14 X10^3/ul (0.83-4.51); Lymphocyte % 14.4 % (19-41); Mean Corp Hgb Conc 31.9 g/dL (32-36); Mean Corpuscular Hgb 31.6 pg (27.0-32.0); Mean Corpuscular Volume 99.2 fL (81-99); Mean Platelet Vol. 10.2 fl (6.2-12.0); Monocyte# 0.97 X10^3/uL; Monocyte% 12.3 % (0-10); NRBC Flagged by Analyzer 0 % (0-5); Neutrophil # 5.63 X10^3/uL (2.7-7.7); Neutrophil % 71.2 % (47-70); Platelet Count 269 K/mm3 (150-450); RBC Distribution Width CV 13.7 % (11.6-14.6); RBC Distribution Width SD 50.2 fl (35.1-43.9); Red Blood Count 3.86 M/mm3 (4.2-5.4); White Blood Count 7.9 K/mm3 (4.4-11.0)
[2024-12-17] MEDS: 0.9% Normal Saline (1000mL) 1,000 ML 999 ML IV (05:18)
[2024-12-17] MEDS: Ondansetron 4 MG/2 ML Vial IV (05:18)
[2024-12-17] MEDS: Morphine 2 MG/ML Syringe IV (05:19)
[2024-12-17 05:24] LABS: Partial Thromboplast Time 24.3 Seconds (24.1-36.2)
[2024-12-17 05:31] LABS: Mucous, Urine 0 SEEN /hpf (<or=2+)
[2024-12-17 05:33] LABS: Color, Urine Yellow (Yellow); Glucose, Dipstick Normal (Normal); Ketone-Dipstick Negative (Negative); Leukocyte Esterase-Dipstick 100 /ul (Negative); Nitrite-Dipstick Negative (Negative); Occult Blood-Urine 250 /ul (Negative); Protein-Dipstick 15 mg/dl (Negative); Urine Bilirubin Dipstick Negative (Negative); Urine Clarity Clear (Clear); Urine Urobilinogen Normal (Normal); Urine pH 6.5 (5.0 - 8.0)
[2024-12-17 05:45] LABS: Bacteria 2+ /hpf (None Seen); Red Blood Cells-Urine 5-10 SEEN /hpf (0-5); Squamous Epithelial Cells - UA 0-5 SEEN /hpf (5-10); White Blood Cells 0-5 SEEN /hpf (0-5)
[2024-12-17 05:57] LABS: AST(SGOT) 20 U/L (<=31); Alanine Aminotransfer ALT/SGPT 11 U/L (<=34); Albumin, Serum 3.8 g/dL (3.4-4.8); Alkaline Phosphatase 75 U/L (35-104); Anion Gap 13 (5-15); BUN 52 mg/dL (4-19); BUN/Creat Ratio 35.9 RATIO (10-20); Bilirubin, Direct 0.14 mg/dL (0.00-0.30); Carbon Dioxide 32.5 mmol/L (21.0-32.0); Chloride 98 mmol/L (98-108); Creatinine, Serum 1.45 mg/dL (0.70-1.20); EST Glomerular Filtration Rate 35 (>60); Estimated Creatinine Clearance 23.74 ml/min (50-250); Globulin 3.1 g/dL (2.2-4.2); Glucose 110 mg/dL (70-99); Sodium Level 144 mmol/L (133-145); Total Bilirubin 0.39 mg/dL (0.00-1.30)
--- NOTE | 2024-12-17 06:14 | RAD_ITS ---
PROCEDURE: CHEST PA AND LATERAL 12/17/2024 REASON FOR EXAM: COUGH TECHNIQUE: Frontal and lateral views of the chest. COMPARISON: None. FINDINGS: Mild bilateral basilar atelectatic pulmonary changes. Moderate benign chronic compression deformities of the lower thoracic vertebral bodies with increased dorsal kyphosis, chronic finding. There is no demonstrated pleural abnormality. Normal heart and pericardium. Normal mediastinum and yamilka. Normal visualized pulmonary arteries. Normal visualized aortic arch and descending thoracic aorta. Normal visualized thoracic spine. Normal visualized ribs, clavicles, and shoulders. There is no demonstrated abnormality of the visualized soft tissue structures of the upper abdomen. RAD/Chest PA and Lateral IMPRESSION: Bilateral basilar atelectatic pulmonary changes. Reading [facility]
[2024-12-17 06:41] VITALS: BP 141/86; PULSE 71; RESP 19; O2SAT 98
--- NOTE | 2024-12-17 06:50 | EX.ED.DYSGE1 ---
HPI History of Present Illness Chief Complaint: GI Bleed Informant: patient and family Narrative Narrative: Patient is a 89-year-old female with past medical history of hypertension hyperlipidemia chronic kidney disease and COPD who wears nasal cannula oxygen at baseline. She states that she went to bed last night and then awoke around 3 in the morning with sensation she had to use the restroom and then noticed that there was blood in her pants and up the lower portion of her back. She states she is on Plavix but denies Eliquis Coumadin or Xarelto use or history of bleeding disorder. She states she does have a mild amount of lower abdominal pain but otherwise does not have fever or dysuria. She states that she had a similar event happen 1 to 2 weeks ago but that the symptoms resolved and she did not come to the hospital for evaluation. She reports it has been multiple years since her last colonoscopy. However this evening as the bout of GI bleeding occurred while sleeping and it is a repeat event she was brought in for evaluation [facility] Medical History History of chronic heart failure Cancer Thyroid disease Ambulates with cane History of renal disease TIA (transient ischemic attack) Acute diverticulitis Wears glasses Wears dentures Arthritis Low iron Anemia High cholesterol Migraine headache Restless legs Difficulty chewing History of diverticulitis Heartburn Gastric reflux Former smoker On home oxygen therapy Shortness of breath on exertion Chronic cough History of edema History of echocardiogram History of stress test Cardiology follow-up encounter Hypertension Chronic hypoxic respiratory failure History of diabetes mellitus History of hypertension Diverticulitis History of COPD COPD (chronic obstructive pulmonary disease) Anemia Chronic heart failure with preserved ejection fraction (HFpEF) Hyperlipidemia Right lumbar radiculopathy CKD (chronic kidney disease), stage III Hypertension Chronic kidney disease PAD (peripheral artery disease) Renal cyst History of TIA (transient ischemic attack) Bilateral carotid artery stenosis Claudication RLS (restless legs syndrome) Diverticulosis TIA (transient ischemic attack) Vertigo Leg edema Dyslipidemia Home Medications ?Medication ?Instructions ?Recorded ?Last Taken ?Type atorvastatin 40 mg tablet 40 mg PO QHS cholesterol 02/22/16 11/27/24 History clopidogrel 75 mg tablet 75 mg PO DAILY BLOOD THINNER 02/22/16 11/28/24 History albuterol sulfate 90 mcg/actuation 2 puff inhalation Q4H PRN 03/16/18 09/27/24 History aerosol inhaler shortness of breath or wheezing pramipexole 1.5 mg tablet 1.5 mg PO QHS restless leg syndrome 08/18/23 11/27/24 History polysaccharide iron complex 150 mg 150 mg PO DAILY supplement 30 days 10/12/23 11/28/24 Rx iron capsule (Ferrex) #30 caps acetaminophen 500 mg tablet 1,000 mg PO Q6H PRN pain 02/14/24 Unknown History arformoterol 15 mcg/2 mL solution 15 mcg inhalation BID breathing 02/14/24 11/28/24 History for nebulization duloxetine 20 mg capsule,delayed 60 mg PO DAILY mental health 02/14/24 11/28/24 History release spironolactone 25 mg tablet 25 mg PO DAILY diuretic 02/14/24 11/28/24 History cholecalciferol (vitamin D3) 125 125 mcg PO DAILY 30 days #30 caps 06/08/24 11/28/24 Rx mcg (5,000 unit) capsule furosemide 40 mg tablet 40 mg PO BID FLUID RETENTION 09/24/24 11/28/24 History pantoprazole 40 mg tablet,delayed 40 mg PO BID reflux 09/24/24 11/28/24 History release budesonide 0.5 mg/2 mL suspension 0.5 mg inhalation BID breathing 11/28/24 11/28/24 History for nebulization carvedilol 25 mg tablet 25 mg PO BID 11/28/24 11/28/24 History magnesium oxide 400 mg PO DAILY 11/28/24 11/28/24 History potassium chloride 20 mEq/15 mL 20 meq PO DAILY 11/28/24 11/28/24 History oral liquid cetirizine 10 mg tablet (24Hour 10 mg PO DAILY 12/17/24 Unknown History Allergy) Allergy/AdvReac Type Severity Reaction Status Date / Time lisinopril Allergy edema Verified 12/17/24 04:43 aspirin AdvReac Upset Verified 12/17/24 04:43 Stomach Family History Mother Heart disease Surgical History History of thyroid surgery History of carotid angioplasty History of kidney stones History of basal cell carcinoma excision History of total hysterectomy Social History household members: none housing: house Smoking Status: Former smoker how long ago did patient quit smokin years ago alcohol intake: current alcohol intake frequency: holidays/special occasions only details: rare substance use type: does not use caffeine: Yes Type: coffee Number of servings: 1 ROS ROS ED Constitutional Constitutional ED: Denies chills or fever(s) ENT ENT ED: Reports rhinorrhea Cardiovascular Cardiovascular: Denies chest pain, palpitations or racing heartbeat Respiratory/Chest Respiratory/Chest: Reports cough; Denies dyspnea Gastrointestinal Gastrointestinal: Reports abdominal pain and melena; Denies diarrhea, nausea or vomiting Genitourinary Genitourinary ED: Denies dysuria Musculoskeletal Musculoskeletal: Denies back pain or myalgias Integumentary Denies rash Neurologic Neurologic: Denies headache(s) Hematologic/Lymphatic Hematologic/Lymphatic: Reports easy bleeding and easy bruising EXAM Physical Exam Const Vital Signs: 12/17/24 04:44 12/17/24 06:41 Temperature 97.7 F L Temperature Source Oral Pulse Rate 81 71 Respiratory Rate 20 H 19 H Blood Pressure 170/73 H 141/86 H Blood Pressure Mean 105 104 Pulse Ox 96 98 Oxygen Delivery Method Nasal Cannula Nasal Cannula Fraction of Inspired Oxygen (FIO2) 2 Positive well nourished, well developed and obese General Appearance ED: well developed; Negative for pallor Nutritional Appearance: obese HEENT HEENT Narrative: Normocephalic atraumatic There is cobblestoning noted in the posterior pharynx consistent with sinus drainage without airway edema or compromise No secondary findings in the posterior pharynx to suggest infection Eyes PERRL and EOMs intact bilaterally General Eye ED: Negative for pale conjunctiva or scleral icterus Neck supple Neck Narrative: No nuchal rigidity or meningeal signs Resp normal respiratory effort Resp Narrative: Breath sounds are diminished throughout with diffuse rhonchi No nasal flaring retractions tachypnea or accessory muscle use Cardio regular rate and regular rhythm Rate: other Other Details: Radial and carotid pulses are equal and symmetric GI non-distended and no masses GI Narrative: Abdomen is soft and nondistended with hyperactive bowel sounds. There is pain with palpation diffusely along the lower abdomen without voluntary guarding or rigidity or pulsatile mass No peritoneal signs Auscultation: normoactive bowel sounds Palpation: soft Narrative: Rectal exam shows nonbleeding nonthrombosed external hemorrhoids No anal fissure is noted No internal masses palpated Rectal tone is normal Stool is mucousy brown in color with streaks of bright red blood and is Hemoccult positive Extremity Extremity Narrative: +2-3 pitting edema to the bilateral lower extremities that is equal and symmetric Neuro oriented x3, CN's II-XII intact bilaterally and no sensory deficits noted Sensorium / Orientation: alert Motor Exam: strength 5/5 throughout Psych mental status grossly normal Skin no rashes or lesions noted Skin Narrative: Capillary refill is less than 3 seconds General Skin Exam: Negative for jaundice or pallor MDM MDM MDM Narrative Medical decision making narrative: Patient arrived to the ER hypertensive otherwise with stable vitals. She reported waking from sleep with bright red blood in her pants and up her back. There is concern for ruptured internal or external hemorrhoid versus anal fissure versus diverticular bleeding versus ischemic colitis. Patient also could have acute blood loss anemia. Laboratory studies show that her hemoglobin today is 12.2 which is actually improved from November 28 when it was approximately 10. Platelet count is also increased from 131-237. In order to check for a potential cause of her GI bleed a CTA was obtained. This showed extensive colonic diverticulosis without obvious diverticulitis. There was no obvious signs of active bleeding either. And she had intestinal inflammation consistent with colitis. The patient had no further episodes of bleeding while in the ER. She remains hemodynamically stable. I discussed the case with gastroenterology as patient reports she had a similar event 1 to 2 weeks ago. At this time as she is hemodynamically stable without need for blood transfusion and no further episodes of bleeding in the ER they feel that she can follow-up as an outpatient and there is no need for admission and emergent colonoscopy. This plan of care was discussed with patient and family and they are agreeable to it and therefore should be discharged at this time Please note her urine sample did show +2 bacteria but there are no white blood cells present in the sample and she does not have dysuria and therefore I feel this is most likely normal ting and there is no need for urine culture or antibiotics. History & Record Review Discussion w/independent historian: Patient and Family Lab Data Attestation: I reviewed the patient's lab results. Labs: Laboratory Results - last 24 hr 12/17/24 12/17/24 04:56 05:20 WBC 7.9 RBC 3.86 L Hgb 12.2 Hct 38.3 MCV 99.2 H MCH 31.6 MCHC 31.9 L RDW Std Deviation 50.2 H RDW Coeff of Ha 13.7 Plt Count 269 MPV 10.2 Immature Gran % (Auto) 0.900 Neut % (Auto) 71.2 H Lymph % (Auto) 14.4 L Ralls % (Auto) 12.3 H Eos % (Auto) 0.9 Baso % (Auto) 0.3 Absolute Neuts (auto) 5.6 Absolute Lymphs (auto) 1.14 Nucleated RBC % 0 PT 13.0 INR 1.0 APTT 24.3 Sodium 144 Potassium 4.0 Chloride 98 Carbon Dioxide 32.5 H Anion Gap 13 BUN 52 H Creatinine 1.45 H Estim Creat Clear Calc 23.74 L Est GFR (MDRD) Non-Af 35 L BUN/Creatinine Ratio 35.9 H Glucose 110 H Calcium 9.0 Total Bilirubin 0.39 Direct Bilirubin 0.14 AST 20 ALT 11 Alkaline Phosphatase 75 Total Protein 7.0 Albumin 3.8 Globulin 3.1 Urine Color Yellow Urine Clarity Clear Urine pH 6.5 Ur Specific Evarts 1.010 Urine Protein 15 H Urine Glucose (UA) Normal Urine Ketones Negative Urine Occult Blood 250 H Urine Nitrite Negative Urine Bilirubin Negative Urine Urobilinogen Normal Ur Leukocyte Esterase 100 H Urine RBC 5-10 SEEN Urine WBC 0-5 SEEN Ur Squamous Epith Cells 0-5 SEEN Urine Bacteria 2+ Urine Mucus 0 SEEN Radiography Diagnostic Testing: Clinical Impression(s) from Imaging Studies Abdomen/Pelvis CTA 12/17/24 05:04 IMPRESSION: 1. Diffuse colonic diverticulosis. 2. Moderate diffuse thickening of the colon, more prominent in the rectosigmoid colon, probably colitis without evidence of perforation or pneumatosis coli. 3. No CT evidence of active bleeding during the time of the exam. 4. Prior hysterectomy. 5. 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 6. Moderate chronic right renal atrophy. 7. Unchanged scattered right renal simple cysts with the largest measuring 4.3 cm. 8. Unchanged nodularity of the left adrenal gland. 9. Atherosclerotic, tortuous ectatic abdominal aorta. 10. Mild stenosis of the origins of the celiac, superior and inferior mesenteric arteries. 11. Well-defined homogeneously enhancing 1.4 cm hemangioma in the segment 4 of the liver. 12. Unchanged small sliding hiatal hernia. 13. Diffuse thickening of the stomach suggestive of gastritis. 14. Mild osteopenia. 15. Mild diffuse spondylosis. 16. Mild chronic compression deformity of L1 vertebral body. Reading Location: [place] [id number] Chest X-Ray 12/17/24 06:14 IMPRESSION: Bilateral basilar atelectatic pulmonary changes. Reading Location: [place] [address] 2 view chest x-ray as interpreted by the emergency medicine physician reveals bibasilar atelectasis without acute infiltrate pneumothorax or pleural effusion Management Discussion w/another healthcare provider: Piano Mechanic Discharge Plan Triage Chief Complaint: GI Bleed ED Provider: Tobias Garcia Dx/Rx/DC Orders Clinical Impression: Diverticulosis, Colitis, GI (gastrointestinal bleed), Hypertension, Hyperlipidemia, COPD (chronic obstructive pulmonary disease) Instructions: GI Bleeding Causes and Tests, ED Understanding Colitis, ED Diverticulosis Prescriptions: No Action acetaminophen 500 mg tablet 1,000 mg PO Q6H PRN (Reason: pain) arformoterol 15 mcg/2 mL solution for nebulization 15 mcg inhalation BID duloxetine 20 mg capsule,delayed release(DR/EC) 60 mg PO DAILY spironolactone 25 mg tablet 25 mg PO DAILY atorvastatin 40 MG tablet 40 mg PO QHS clopidogrel 75 MG tablet 75 mg PO DAILY albuterol sulfate 90 mcg/actuation HFA aerosol inhaler 2 puff INHALATION Q4H PRN (Reason: shortness of breath or wheezing) pramipexole 1.5 mg tablet 1.5 mg PO QHS cholecalciferol (vitamin D3) 125 mcg (5,000 unit) Capsule 125 mcg PO DAILY 30 Days Qty: 30 0RF carvedilol 25 mg tablet 25 mg PO BID magnesium oxide 400 mg magnesium capsule 400 mg PO DAILY potassium chloride 20 mEq/15 mL liquid 20 meq PO DAILY budesonide 0.5 mg/2 mL suspension for nebulization 0.5 mg inhalation BID polysaccharide iron complex [Ferrex 150] 150 mg iron Capsule 150 mg PO DAILY 30 Days Qty: 30 0RF furosemide 40 mg tablet 40 mg PO BID pantoprazole 40 mg Tablet,Delayed Release (Dr/Ec) 40 mg PO BID cetirizine [24Hour Allergy] 10 mg tablet 10 mg PO DAILY Primary Care Provider: Viktoriya Lamb Referrals: Viktoriya Lamb MD [Primary Care Provider] - Teodoro Real DO [Med Staff - Active Staff] - (Colonic diverticulosis/colitis/GI bleed) Activity Restrictions/Additional Instructions: Please contact Dr. Real's office this morning as they should be able to schedule an appointment for you tomorrow or later this week. If you develop severe abdominal pain a fever of 100.4 or higher or have persistent bleeding from your rectum or any further concerns please return to the ER for repeat evaluation. Print Language: Korean Disposition Disposition: Home, Self Care
[2024-12-17 07:22] VITALS: BP 161/60; PULSE 71; RESP 19; TEMP 36.7; O2SAT 98
== END 2024-12-17 07:34 | disposition home or self-care (01) ==
PROVIDERS: Emergency Provider Emergency Medicine; PCP Internal Medicine; Visit Provider Emergency Medicine
DX: K57.31 Diverticulosis of large intestine without perforation or abscess with bleeding (principal); J96.11 Chronic respiratory failure with hypoxia; I50.32 Chronic diastolic (congestive) heart failure; I13.0 Hypertensive heart and chronic kidney disease with heart failure and stage 1 through stage 4 chronic kidney disease, or unspecified chronic kidney disease; J44.9 Chronic obstructive pulmonary disease, unspecified; N18.30 Chronic kidney disease, stage 3 unspecified; E78.00 Pure hypercholesterolemia, unspecified; Z99.81 Dependence on supplemental oxygen; Z79.02 Long term (current) use of antithrombotics/antiplatelets; Z79.899 Other long term (current) drug therapy; Z87.891 Personal history of nicotine dependence; K21.9 Gastro-esophageal reflux disease without esophagitis
CPT/HCPCS: 71046; 74174; 80048; 80076; 81001; 82274; 85025; 85610; 85730; 96361; 96374; 96375; 99283; Q9967; A4216; J2405

== ENCOUNTER → 2024-12-18 | Outpatient (CLI) | payer MEDICARE, SELFPAY ==
[2024-12-18 10:25] LABS: Absolute Lymphocyte Count 0.79 X10^3/uL (0.83-4.51); Absolute Neutrophil Count 5.2 X10^3/uL (2.0-7.7); Basophil# 0.03 X10^3/uL; Basophil% 0.4 % (0-1); Eosinophil# 0.25 X10^3/uL; Eosinophils% 3.5 % (0-5); Hematocrit 34.6 % (37-47); Hemoglobin 10.9 g/dL (12.0-15.0); Lymphocyte # 0.79 X10^3/ul (0.83-4.51); Mean Corp Hgb Conc 31.5 g/dL (32-36); Mean Corpuscular Hgb 31.7 pg (27.0-32.0); Mean Corpuscular Volume 100.6 fL (81-99); Mean Platelet Vol. 10.3 fl (6.2-12.0); Monocyte# 0.84 X10^3/uL; Monocyte% 11.7 % (0-10); NRBC Flagged by Analyzer 0 % (0-5); Neutrophil % 72.7 % (47-70); POSITIVE MORPHOLOGY YES; Platelet Count 244 K/mm3 (150-450); RBC Distribution Width CV 13.8 % (11.6-14.6); Red Blood Count 3.44 M/mm3 (4.2-5.4); White Blood Count 7.2 K/mm3 (4.4-11.0)
[2024-12-18 11:04] LABS: Differential Indicated SCAN CRITERIA MET
[2024-12-18 11:05] LABS: Differential Comment SCANNED
[2024-12-22 00:07] LABS: Calprotectin, Stool 2110 ug/g (0-120)
== END | disposition home or self-care (01) ==
PROVIDERS: PCP Internal Medicine; Referring Provider Student in an Organized Health Care Education/Training Program; Visit Provider Student in an Organized Health Care Education/Training Program
DX: R19.7 Diarrhea, unspecified (principal); K58.9 Irritable bowel syndrome, unspecified; K92.2 Gastrointestinal hemorrhage, unspecified; D64.9 Anemia, unspecified
CPT/HCPCS: 36415; 83993; 85025; 87177; 87209; 87329; 87493; 87506

== ENCOUNTER 2025-01-01 13:51 | Day surgery (SDC) | payer MEDICARE, SELFPAY ==
--- NOTE | 2024-12-27 15:54 | PAT.ANE_ITS ---
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 When Was Last Pacemaker Check QUESTION #4 FULL TEXT: You/Your Family Experience fever (hyperthermia) with Anesthesia Last Oral Intake Last Oral intake: Last Oral Intake NPO since Meds taken in AM with sips of water? 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 Female Yes 12/27/24 15:28 HX of Motion Sickness No 12/27/24 15:28 HX of N/V After Surgery No 12/27/24 15:28 Non-Smoker Yes 12/27/24 15:28 Duration of Surgery greater No 12/27/24 15:28 than 60 minutes Number of Risk Factors 2 12/27/24 15:28 PONV Score Moderate Risk 12/27/24 15:28 Height & Weight Height & Weight: Anesthesia: Height & Weight Height 5 ft 2 in 12/17/24 04:44 Respiratory Assessment Respiratory Assessment - glassware maker demonstrator: Respiratory Tract Infection Hx - glassware maker demonstrator Hx Respiratory Tract Infection No 12/27/24 15:28 STOP Sleep Apnea STOP Sleep Apnea - glassware maker demonstrator: STOP Sleep Apnea - glassware maker demonstrator Hx Hypertension Yes 12/27/24 15:28 Hx Sleep Apnea No 12/27/24 15:28 CPAP No 09/27/24 07:05 BIPAP No 11/03/23 18:31 Do you snore loudly (louder No 12/27/24 15:28 than talking or can be heard Do you often feel tired/ No 12/27/24 15:28 fatigued/ sleepy during daytime? Has anyone observed you stop No 12/27/24 15:28 breathing during sleep? STOP Results Negative 12/27/24 15:28 QUESTION #5 FULL TEXT : Do you snore loudly (louder than talking or can be heard through closed doors)? 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 Specify any problems Hx of Preganancy in last 3 No 12/27/24 15:28 Months Nurse Filling Out Transfusion [email or web address] 12/27/24 15:28 & Questions: Date: 12/27/24 12/27/24 15:28 Time: 15:34 12/27/24 15:28 Patient unable to answer at this time (ie. confused, unrespo /Reproduction History /Reproductive History - glassware maker demonstrator: /Reproductive Hx- glassware maker demonstrator Hx Now No 12/27/24 15:28 Gestational Age (in weeks): EDC: Hx Hx Para Hx Section SAB No 12/27/24 15:28 PFSH Medical History (Updated 12/27/24 @ 15:39 by Joseph Griffiths) Rash Back pain Cancer Thyroid disease Ambulates with cane History of renal disease TIA (transient ischemic attack) Acute diverticulitis Wears glasses Wears dentures Arthritis Low iron Anemia High cholesterol Migraine headache Restless legs Difficulty chewing History of diverticulitis Heartburn Gastric reflux Former smoker On home oxygen therapy Shortness of breath on exertion Chronic cough History of edema History of echocardiogram History of stress test Cardiology follow-up encounter Hypertension Chronic hypoxic respiratory failure History of diabetes mellitus History of hypertension Diverticulitis History of chronic heart failure History of COPD COPD (chronic obstructive pulmonary disease) Anemia Chronic heart failure with preserved ejection fraction (HFpEF) Hyperlipidemia Right lumbar radiculopathy CKD (chronic kidney disease), stage III Hypertension Chronic kidney disease PAD (peripheral artery disease) Renal cyst History of TIA (transient ischemic attack) Bilateral carotid artery stenosis Claudication RLS (restless legs syndrome) Diverticulosis TIA (transient ischemic attack) Vertigo Leg edema Dyslipidemia Home Medications ?Medication ?Instructions ?Recorded ?Last Taken ?Type atorvastatin 40 mg tablet 40 mg PO QHS cholesterol 01/3011/27/24 History clopidogrel 75 mg tablet 75 mg PO DAILY BLOOD THINNER 02/22/16 12/26/24 History albuterol sulfate 90 mcg/actuation 2 puff inhalation Q 4H PRN 03/16/18 09/27/24 History aerosol inhaler shortness of breath or wheez ing pramipexole 1.5 mg tablet 1.5 mg PO QHS restless leg s yndrome 08/18/23 11/27/24 History polysaccharide iron complex 150 mg 150 mg PO DAILY sup plement 30 days 10/12/23 12/26/24 Rx iron capsule (Ferrex) #30 caps acetaminophen 500 mg tablet 1,000 mg PO Q6H PRN pain 0 02/14/24 Unknown History arformoterol 15 mcg/2 mL solution 15 mcg inhalation BI D breathing 02/14/24 11/28/24 History for nebulization spironolactone 25 mg tablet 25 mg PO DAILY diuretic 11/28/24 History cholecalciferol (vitamin D3) 125 125 mcg PO DAILY 30 d ays #30 caps 06/08/24 11/28/24 Rx mcg (5,000 unit) capsule furosemide 40 mg tablet 40 mg PO BID FLUID RETENTION 09/24/24 11/28/24 History pantoprazole 40 mg tablet,delayed 40 mg PO BID reflux 09/24/24 11/28/24 History release budesonide 0.5 mg/2 mL suspension 0.5 mg inhalation BI D breathing 11/28/24 11/28/24 History for nebulization carvedilol 25 mg tablet 25 mg PO BID 11/28/24 History magnesium oxide 400 mg PO DAILY 11/28/24 History potassium chloride 20 mEq/15 mL 20 meq PO DAILY 11/28/24 History oral liquid cetirizine 10 mg tablet (24Hour 10 mg PO DAILY 5 Unknown History Allergy) dicyclomine 10 mg capsule 10 mg PO BID #20 caps Unknown Rx peg 3350-electrolytes 236 240 ml PO Q10M #4,000 mL 10/09 Unknown Rx gram-22.74 gram-6.74 gram-5.86 gram solution (Golytely) vancomycin 125 mg capsule 125 mg PO Q6H 10 days #40 ca ps 12/19/24 Unknown Rx (Vancocin) duloxetine 60 mg capsule,delayed 60 mg PO DAILY Unknown History release Allergy/AdvReac Type Severity Reaction Status Date / Time lisinopril Allergy edema Verified 12/27/24 15:21 aspirin AdvReac Upset Verified 12/27/24 15:21 Stomach Family History Mother Heart disease Surgical History History of thyroid surgery History of carotid angioplasty History of kidney stones History of basal cell carcinoma excision History of total hysterectomy Social History household members: none housing: house Smoking Status: Former smoker how long ago did patient quit smokin years ago alcohol intake: current alcohol intake frequency: holidays/special occasions only details: rare substance use type: does not use caffeine: Yes Type: coffee Number of servings: 1 Audit: Pertinent Findings Pertinent Findings EKG Perinent findings: 11/03/2023. Sinus rhythm premature atrial complexes. Right bundle branch block. Echo (EF%) pertinent findings: 09/04/2023. Normal left ventricle. EF 70. Pulmonary artery pressure 30. Consult pertinent findings: Cardiology 10/17/2024. History of chronic heart failure. Stable currently on current medical regimen stable. Hypertension. Chronic. Stable. On home oxygen. 2 L day 4 L at night. History of COPD and multiple 's. Additional pertinent findings: Chest x-ray 12/17/2024. Done for cough. By lateral basilar atelectatic pulmonary changes. Recommendation Anesthesia Recommendation Anesthesia recommendation: OPTIMIZED for anesthesia
[2025-01-01] VITALS (8 sets, daily range): BP systolic 110–144; BP diastolic 40–52; PULSE 70–80; RESP 16; TEMP 36.2–36.7; O2SAT 97–100; BMI 25.0
--- NOTE | 2025-01-01 14:28 | PCM.HP.STD ---
HPI - General General Date of Admission: 01/01/25 Date of Service: 01/01/25 Chief Complaint: Lower GI bleeding HPI Narrative CHANEL ARTIS, is a 89 F who presents with lower GI bleeding BGI established in Aug 2023 during hospitalization for NSTEMI and COPD exacerbation. Found to have a down trending hemoglobin and underwent EGD. EGD 09.16.23; - LA Grade D erosive esophagitis with bleeding. Treated with a heater probe. - Non-bleeding gastric ulcers with no stigmata of bleeding. Biopsied. - Acute duodenitis. Biopsied EGD 04.19.24; - Abnormal esophageal motility, consistent with aperistalsis. Dilated. - Small hiatal hernia. - Gastric mucosal variant. Biopsied. - A few duodenal polyps. Resected and retrieved. *Start amitriptyline 10 mg daily but discontinued due to side effects. [facility] admission 06.06.24-06.08.24 with severe hypomagnesia, hypocalcemia and diverticulitis Last OV 08.13.24 Pt continues with swallowing issues. Scheduled for EGD with botox EGD 09.27.24; - Achalasia. Injected with botulinum toxin. - No gross lesions in the entire stomach. - No gross lesions in the first portion of the duodenum. - No specimens collected. [facility] ED with two episodes BRBPR over the past week. Pt on Eliquis. CT showing diverticulosis, moderate diffuse thickening of the colon, more prominent in the rectosigmoid colon, probably colitis without evidence of perforation pneumonitis coli. No active bleeding. small hiatal hernia and diffuse thickening of the stomach suggestive of gastritis. OV 625 Pt continues with abdominal pain. Pain is in the LLQ and a 6/10. She feels constipated this week but last week was having diarrhea. She has had no further episodes of BRBPR. [facility] Medical History (Updated 01/01/25 @ 14:[address] Valerio Friend, DO) GI (gastrointestinal bleed) Rash Back pain Cancer Thyroid disease Ambulates with cane History of renal disease TIA (transient ischemic attack) Acute diverticulitis Wears glasses Wears dentures Arthritis Low iron Anemia High cholesterol Migraine headache Restless legs Difficulty chewing History of diverticulitis Heartburn Gastric reflux Former smoker On home oxygen therapy Shortness of breath on exertion Chronic cough History of edema History of echocardiogram History of stress test Cardiology follow-up encounter Hypertension Chronic hypoxic respiratory failure History of diabetes mellitus History of hypertension Diverticulitis History of chronic heart failure History of COPD COPD (chronic obstructive pulmonary disease) Anemia Chronic heart failure with preserved ejection fraction (HFpEF) Hyperlipidemia Right lumbar radiculopathy CKD (chronic kidney disease), stage III Hypertension Chronic kidney disease PAD (peripheral artery disease) Renal cyst History of TIA (transient ischemic attack) Bilateral carotid artery stenosis Claudication RLS (restless legs syndrome) Diverticulosis TIA (transient ischemic attack) Vertigo Leg edema Dyslipidemia Home Medications ?Medication ?Instructions ?Recorded ?Last Taken ?Type atorvastatin 40 mg tablet 40 mg PO QHS cholesterol 02/22/16 11/27/24 History clopidogrel 75 mg tablet 75 mg PO DAILY BLOOD THINNER 02/22/16 12/26/24 History albuterol sulfate 90 mcg/actuation 2 puff inhalation Q4H PRN 03/16/18 09/27/24 History aerosol inhaler shortness of breath or wheezing pramipexole 1.5 mg tablet 1.5 mg PO QHS restless leg syndrome 08/18/23 11/27/24 History polysaccharide iron complex 150 mg 150 mg PO DAILY supplement 30 days 10/12/23 12/26/24 Rx iron capsule (Ferrex) #30 caps acetaminophen 500 mg tablet 1,000 mg PO Q6H PRN pain 02/14/24 Unknown History arformoterol 15 mcg/2 mL solution 15 mcg inhalation BID breathing 02/14/24 01/01/25 History for nebulization spironolactone 25 mg tablet 25 mg PO DAILY diuretic 02/14/24 11/28/24 History cholecalciferol (vitamin D3) 125 125 mcg PO DAILY 30 days #30 caps 06/08/24 11/28/24 Rx mcg (5,000 unit) capsule furosemide 40 mg tablet 40 mg PO BID FLUID RETENTION 09/24/24 11/28/24 History pantoprazole 40 mg tablet,delayed 40 mg PO BID reflux 09/24/24 01/01/25 History release budesonide 0.5 mg/2 mL suspension 0.5 mg inhalation BID breathing 11/28/24 01/01/25 History for nebulization carvedilol 25 mg tablet 25 mg PO BID 11/28/24 01/01/25 History magnesium oxide 400 mg PO DAILY 11/28/24 11/28/24 History potassium chloride 20 mEq/15 mL 20 meq PO DAILY 11/28/24 11/28/24 History oral liquid cetirizine 10 mg tablet (24Hour 10 mg PO DAILY 12/17/24 Unknown History Allergy) dicyclomine 10 mg capsule 10 mg PO BID #20 caps 12/18/24 Unknown Rx peg 3350-electrolytes 236 240 ml PO Q10M #4,000 mL 12/18/24 Unknown Rx gram-22.74 gram-6.74 gram-5.86 gram solution (Golytely) duloxetine 60 mg capsule,delayed 60 mg PO DAILY 12/27/24 01/01/25 History release Allergy/AdvReac Type Severity Reaction Status Date / Time lisinopril Allergy edema Verified 12/27/24 15:21 aspirin AdvReac Upset Verified 12/27/24 15:21 Stomach Family History Mother Heart disease Surgical History History of thyroid surgery History of carotid angioplasty History of kidney stones History of basal cell carcinoma excision History of total hysterectomy Social History household members: none housing: house Smoking Status: Former smoker how long ago did patient quit smokin years ago alcohol intake: current alcohol intake frequency: holidays/special occasions only details: rare substance use type: does not use caffeine: Yes Type: coffee Number of servings: 1 ROS Constitutional Constitutional: Denies fatigue, fever(s), poor appetite, weight gain or weight loss Gastrointestinal Gastrointestinal: Denies belching, bloating, change in bowel habits, change in stool character, chewing difficulty, coffee ground emesis, constipation, cramping, diarrhea, dyspepsia, dysphagia, early satiety, excessive flatus, fecal incontinence, heartburn, hematemesis, hematochezia, hemorrhoids, loose stools, melena, nausea, odynophagia, rectal bleeding, tenesmus, vomiting or weight changes Vital Signs Vital Signs Vital Signs: 01/01/25 14:13 01/01/25 14:13 Temperature 98 F Temperature Source Temporal Pulse Rate 70 Respiratory Rate 16 Respiratory Pattern Normal Blood Pressure 144/40 H Blood Pressure Mean 74 Blood Pressure Source Monitor Blood Pressure Position Semi-Fowlers Blood Pressure Location Left Arm Pulse Ox 100 Oxygen Delivery Method Nasal Cannula Oxygen Flow Rate (L/min) 2 Weight Weight: 136 lb 10.986 oz Body Mass Index (BMI) 25.0 Physical Exam Const alert, oriented x3, no apparent distress and healthy appearing General Appearance: cooperative GI normal to inspection, nondistended, normoactive bowel sounds, soft to palpation, non-tender and non-distended Percussion: normal to percussion Rectal Exam: deferred Assessment & Plan Assessment/Plan (1) Anemia: (2) GI bleed: PLAN: Assessment and Plan Assessment and Plan (1) GI (gastrointestinal bleed): Status: Acute Plan: Chanel is an 89 yo female who established with [facility]GI previously for difficulty swallowing. She is here today for ED f/u after presenting to the ED 6.5.25 with BRBPR and abd pain. Hemoglobin was stable at 12.2 which was improved from prior. CT showing thickening of the colon more in the rectosigmoid colon and no acute bleeding. Pt was discharged with close GI f/u. Today she continues to have LLQ abd pain but no further episodes of bleeding. I have ordered repeat CBC to monitor her hgb. She will undergo colonoscopy in the next 1-2 weeks for further evaluation. I have also ordered stool testing for infection or inflammation. -Colonoscopy -Stool testing -CBC -f/u after procedure (2) Colitis: Status: Acute (3) Diarrhea: Status: Resolved Qualifiers: Diarrhea type: unspecified type Qualified Code(s): R19.7 - Diarrhea, unspecified Orders: Orders CBC W/Diff, Automated Today D64.9 - Anemia, unspecified ENTERIC PATHOGEN PANEL STOOL Today K52.9 - Noninfective gastroenteritis and colitis, unspecified, K58.9 - Irritable bowel syndrome, unspecified, K92.2 - Gastrointestinal hemorrhage, unspecified, R19.7 - Diarrhea, unspecified Giardia Lamblia, Stool EIA Today K52.9 - Noninfective gastroenteritis and colitis, unspecified, K92.2 - Gastrointestinal hemorrhage, unspecified, R19.7 - Diarrhea, unspecified Ova and Parasites [id number] Today K52.9 - Noninfective gastroenteritis and colitis, unspecified, K58.9 - Irritable bowel syndrome, unspecified, K92.2 - Gastrointestinal hemorrhage, unspecified, R19.7 - Diarrhea, unspecified Calprotectin, Stool Today K52.9 - Noninfective gastroenteritis and colitis, unspecified, K92.2 - Gastrointestinal hemorrhage, unspecified, R19.7 - Diarrhea, unspecified CDIFF (PCR) Today K52.9 - Noninfective gastroenteritis and colitis, unspecified, K92.2 - Gastrointestinal hemorrhage, unspecified, R19.7 - Diarrhea, unspecified Medications: New dicyclomine 10 mg PO BID 20 caps 1RF peg 3350-electrolytes 236-22.74-6.74 -5.86 gram (Golytely) until fecal effluent is clear 240 mL PO Q10M 4,000 mL 0RF
[2025-01-01] MEDS: Lactated Ringers 1,000 ML 15 ML IV (14:37)
--- NOTE | 2025-01-01 14:57 | PCM.PRE.AN2 ---
ASA Classification* ASA Classification ASA Classification: 3 (On continuous oxygen. HTN, GERD, COPD, h/o CHF. Use non-rebreather at 10 L for this patient ) Assessment & Plan Anesthesia* Anesthesia Assessment Anesthesia Assessment: Discussed sedation and/or anesthesia options, risks, benefits, and alternatives with patient/parents/legal guardian/POA. Questions invited. The patient/parents/legal guardian/POA seems to understand and agrees to proceed with anesthesia plan. Reviewed the physical assessment, medical history, allergy history and patient home medications list prior to surgery/procedure/anesthetic and documented any changes. Performed airway and anesthesia risk assessments. Anesthesia Type Anesthesia Type: General History Source History Obtained from:: Patient and Chart Anesthesia Focused Assessment* Temperature: 98 F Pulse Rate: 70 Blood Pressure: 144/40 Respiratory Rate: 16 Pulse Ox: 100 Oxygen Flow Rate (L/min): 2 Airway Assessment Mouth opens: >3 cm Mallampati Score: III Teeth Condition: Intact Neck Range of motion (ROM): Full ROM Labs Anesthesia Preop lab: CBC WBC 7.2 K/mm3 (4.4-11.0) 12/18/24 09:53 12/18/24 RBC 3.44 M/mm3 (4.2-5.4) L 12/18/24 09:53 12/18/24 Hgb 10.9 g/dL (12.0-15.0) L 12/18/24 09:53 12/18/24 Hct 34.6 % (37-47) L 12/18/24 09:53 12/18/24 Plt Count 244 K/mm3 (150-450) 12/18/24 09:53 12/18/24 CHEMISTRY Potassium 4.0 mmol/L (3.3-5.1) 12/17/24 04:56 12/17/24 Sodium 144 mmol/L (133-145) 12/17/24 04:56 12/17/24 Magnesium 2.1 mg/dL (1.6-2.6) 06/07/24 05:46 06/07/24 Phosphorus 3.3 mg/dL (2.5-4.9) 06/08/24 07:12 06/08/24 BUN 52 mg/dL (4-19) H 12/17/24 04:56 12/17/24 Creatinine 1.45 mg/dL (0.70-1.20) H 12/17/24 04:56 12/17/24 Glucose 110 mg/dL (70-99) H 12/17/24 04:56 12/17/24 POC Glucose 100 mg/dL (74-106) 06/08/24 11:33 06/08/24 TSH 1.820 uIU/mL (0.358-3.740) 06/06/24 18:39 06/06/24 COAG PT 13.0 SECONDS (11.7-14.9) 12/17/24 04:56 12/17/24 Pre-Assessment Diagnosis/Proposed Procedure Planned Operative Procedure(s): COLONOSCOPY Anesthesia History 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 When Was Last Pacemaker Check QUESTION #4 FULL TEXT: You/Your Family Experience fever (hyperthermia) with Anesthesia Last Oral Intake Last Oral intake: Last Oral Intake NPO since 06:30 01/01/25 14:13 Meds taken in AM with sips of Yes 01/01/25 14:13 water? 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 manager Female Yes 12/27/24 15:28 HX of Motion Sickness No 12/27/24 15:28 HX of N/V After Surgery No 12/27/24 15:28 Non-Smoker Yes 12/27/24 15:28 Duration of Surgery greater No 12/27/24 15:28 than 60 minutes Number of Risk Factors 2 12/27/24 15:28 PONV Score Moderate Risk 12/27/24 15:28 Height & Weight Height & Weight: Anesthesia: Height & Weight Height 5 ft 2 in 01/01/25 14:13 Weight: 62 kg 01/01/25 14:13 Body Mass Index (BMI) 25.0 01/01/25 14:13 Respiratory Assessment Respiratory Assessment - bus company manager: Respiratory Tract Infection Hx - bus company manager Hx Respiratory Tract Infection No 12/27/24 15:28 STOP Sleep Apnea STOP Sleep Apnea - bus company manager: STOP Sleep Apnea - bus company manager Hx Hypertension Yes 12/27/24 15:28 Hx Sleep Apnea No 12/27/24 15:28 CPAP No 09/27/24 07:05 BIPAP No 11/03/23 18:31 Do you snore loudly (louder No 12/27/24 15:28 than talking or can be heard Do you often feel tired/ No 12/27/24 15:28 fatigued/ sleepy during daytime? Has anyone observed you stop No 12/27/24 15:28 breathing during sleep? STOP Results Negative 12/27/24 15:28 QUESTION #5 FULL TEXT : Do you snore loudly (louder than talking or can be heard through closed doors)? 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 Specify any problems Hx of Preganancy in last 3 No 12/27/24 15:28 Months Nurse Filling Out Transfusion [id number] 12/27/24 15:28 & Questions: Date: 12/27/24 12/27/24 15:28 Time: 15:34 12/27/24 15:28 Patient unable to answer at this time (ie. confused, unrespo /Reproduction History /Reproductive History - bus company manager: /Reproductive Hx- bus company manager Hx Now No 12/27/24 15:28 Gestational Age (in weeks): EDC: Hx Hx Para Hx Section SAB No 12/27/24 15:28 Active Medications Active Medications: Current Medications Generic Name Dose Route Start Last Admin Trade Name Freq PRN Reason Stop Dose Admin Lactated Ringer's 1,000 mls @ 15 mls/hr 01/01/25 14:30 01/01/25 14:37 IV 15 mls/hr .Q48H MUSA Administration PFSH Medical History (Updated 01/01/25 @ 14:[address] Valerio Friend, DO) GI (gastrointestinal bleed) Rash Back pain Cancer Thyroid disease Ambulates with cane History of renal disease TIA (transient ischemic attack) Acute diverticulitis Wears glasses Wears dentures Arthritis Low iron Anemia High cholesterol Migraine headache Restless legs Difficulty chewing History of diverticulitis Heartburn Gastric reflux Former smoker On home oxygen therapy Shortness of breath on exertion Chronic cough History of edema History of echocardiogram History of stress test Cardiology follow-up encounter Hypertension Chronic hypoxic respiratory failure History of diabetes mellitus History of hypertension Diverticulitis History of chronic heart failure History of COPD COPD (chronic obstructive pulmonary disease) Anemia Chronic heart failure with preserved ejection fraction (HFpEF) Hyperlipidemia Right lumbar radiculopathy CKD (chronic kidney disease), stage III Hypertension Chronic kidney disease PAD (peripheral artery disease) Renal cyst History of TIA (transient ischemic attack) Bilateral carotid artery stenosis Claudication RLS (restless legs syndrome) Diverticulosis TIA (transient ischemic attack) Vertigo Leg edema Dyslipidemia Home Medications ?Medication ?Instructions ?Recorded ?Last Taken ?Type atorvastatin 40 mg tablet 40 mg PO QHS cholesterol 02/22/16 11/27/24 History clopidogrel 75 mg tablet 75 mg PO DAILY BLOOD THINNER 02/22/16 12/26/24 History albuterol sulfate 90 mcg/actuation 2 puff inhalation Q4H PRN 03/16/18 09/27/24 History aerosol inhaler shortness of breath or wheezing pramipexole 1.5 mg tablet 1.5 mg PO QHS restless leg syndrome 08/18/23 11/27/24 History polysaccharide iron complex 150 mg 150 mg PO DAILY supplement 30 days 10/12/23 12/26/24 Rx iron capsule (Ferrex) #30 caps acetaminophen 500 mg tablet 1,000 mg PO Q6H PRN pain 02/14/24 Unknown History arformoterol 15 mcg/2 mL solution 15 mcg inhalation BID breathing 02/14/24 01/01/25 History for nebulization spironolactone 25 mg tablet 25 mg PO DAILY diuretic 02/14/24 11/28/24 History cholecalciferol (vitamin D3) 125 125 mcg PO DAILY 30 days #30 caps 06/08/24 11/28/24 Rx mcg (5,000 unit) capsule furosemide 40 mg tablet 40 mg PO BID FLUID RETENTION 09/24/24 11/28/24 History pantoprazole 40 mg tablet,delayed 40 mg PO BID reflux 09/24/24 01/01/25 History release budesonide 0.5 mg/2 mL suspension 0.5 mg inhalation BID breathing 11/28/24 01/01/25 History for nebulization carvedilol 25 mg tablet 25 mg PO BID 11/28/24 01/01/25 History magnesium oxide 400 mg PO DAILY 11/28/24 11/28/24 History potassium chloride 20 mEq/15 mL 20 meq PO DAILY 11/28/24 11/28/24 History oral liquid cetirizine 10 mg tablet (24Hour 10 mg PO DAILY 12/17/24 Unknown History Allergy) dicyclomine 10 mg capsule 10 mg PO BID #20 caps 12/18/24 Unknown Rx peg 3350-electrolytes 236 240 ml PO Q10M #4,000 mL 12/18/24 Unknown Rx gram-22.74 gram-6.74 gram-5.86 gram solution (Golytely) duloxetine 60 mg capsule,delayed 60 mg PO DAILY 12/27/24 01/01/25 History release Allergy/AdvReac Type Severity Reaction Status Date / Time lisinopril Allergy edema Verified 12/27/24 15:21 aspirin AdvReac Upset Verified 12/27/24 15:21 Stomach Family History Mother Heart disease Surgical History History of thyroid surgery History of carotid angioplasty History of kidney stones History of basal cell carcinoma excision History of total hysterectomy Social History household members: none housing: house Smoking Status: Former smoker how long ago did patient quit smokin years ago alcohol intake: current alcohol intake frequency: holidays/special occasions only details: rare substance use type: does not use caffeine: Yes Type: coffee Number of servings: 1 Review of Systems (Anesthesia) ROS Narrative System reviewed and no additional complaints, except as documented. Physical Exam Const alert, oriented x3 and average body habitus Resp normal respiratory effort, normal air movement and clear to auscultation bilaterally Cardio regular rate, regular rhythm, no murmurs and diaphoretic
--- NOTE | 2025-01-01 15:00 | COLBX_PTH ---
PATIENT: DICK ARTIS LOC: EN U#:[id number] AGE/SX: 89/F ROOM: RE01/01/[address]: Dr. Teodoro Real DO : 1935 BED: DIS: 01/01/2025 SPEC #: [id number] RECD: 01/02/25 09:59 STATUS: ANGELA MARIA ELENA #: [id number] PARTH: 01/01/25 15:[address]: Teodoro Real DEPT: SURGICAL PATHOLOGY RECD BY: Jonny Hanna ENTERED: 01/02/25 11:02 SP TYPE: COLON BX DEE DEE DR: Dr. Viktoriya Lamb MD Tissues: A - COLON BIOPSY B - Sigmoid colon biopsy C - Sigmoid colon biopsy Procedures: Surgery Specimen Level IV HEADER OPERATION: Colonoscopy, biopsy, polypectomy PRE-OP DIAGNOSIS: GI bleed TISSUE SUBMITTED: A- Hepatic flexure polyp biopsy, B- Sigmoid colitis biopsy, C- Sigmoid colon polyp MICROSCOPIC DIAGNOSIS A. Colon, hepatic flexure, polyp, biopsy: Tubular adenoma. B. Sigmoid colon, biopsy: Hyperplastic crypt change with prolapse features and patchy acute inflammation. Reactive epithelial change. Negative for dysplasia (deeper sections examined). C. Sigmoid colon, polyp, biopsy: Hyperplastic polyp with prolapse features. MICROSCOPIC DESCRIPTION Slides are reviewed. GROSS DESCRIPTION A. Received in fixative is one container labeled with the patient's name and designated Hepatic flexure polyp biopsy. The specimen consists of three irregular fragments of light figueroa soft tissue that in aggregate measure <0.1 to 0.4 cm. The specimen is totally submitted in one cassette. B. Received in fixative is one container labeled with the patient's name and designated Sigmoid colitis biopsy. The specimen consists of two irregular fragments of light figueroa soft tissue that in aggregate measure 0.4 and 0.6 cm. The specimen is totally submitted in one cassette. C. Received in fixative is one container labeled with the patient's name and designated Sigmoid colon polyp. The specimen consists of two irregular fragments of light figueroa soft tissue that in aggregate measure 0.4 and 0.7 x 0.5 x 0.3 cm (margin inked black). The specimen is totally submitted in one cassette. Brian 01/02/2025 CPT:[id number]
--- NOTE | 2025-01-01 15:57 | PCM.POST.ANE ---
Anesthesia: Postop Eval I Current Vital Signs Temperature: 97.8 F Pulse Rate: 70 Blood Pressure: 115/52 Respiratory Rate: 16 Pulse Ox: 98 Oxygen Delivery Method: Nasal Cannula Oxygen Flow Rate (L/min): 2 Assessment Airway patent: Yes Spontaneous unlabored respirations: Yes Mental status: Awake and Calm nausea: No Vomiting: No Anesthesia Complication: No Fluid Hydration Crystalloid volume administer (ml): 400 Total IV fluid infused: 400 Progress Note Anesthesia document: Postop Eval 1 completed: Yes
--- NOTE | 2025-01-01 16:00 | OP.COLON_ITS ---
Patient Name: Chanel Rousseau Procedure Date: 01/01/2025 3:18 PM Date of : 1935 Age: 89 Procedure: Colonoscopy Indications: Hematochezia Providers: Teodoro Real DO Referring MD: Viktoriya Lamb Medicines: Monitored Anesthesia Care Patient Profile: This is an 89 year old female. Refer to note in patient chart for documentation of history and physical. Last Colonoscopy: date unknown. Unable to locate last colonoscopy report. Complications: No immediate complications. Estimated blood loss: None. Procedure: Pre-Anesthesia Assessment: - Prior to the procedure, a History and Physical was performed, and patient medications and allergies were reviewed. The patient is competent. The risks and benefits of the procedure and the sedation options and risks were discussed with the patient. All questions were answered and informed consent was obtained. Patient identification and proposed procedure were verified by the physician in the pre-procedure area. Mental Status Examination: alert and oriented. Airway Examination: normal oropharyngeal airway and neck mobility. Respiratory Examination: clear to auscultation. CV Examination: normal. Prophylactic Antibiotics: The patient does not require prophylactic antibiotics. Prior Anticoagulants: The patient has taken no anticoagulant or antiplatelet agents except for NSAID medication. ASA Grade Assessment: II - A patient with mild systemic disease. After reviewing the risks and benefits, the patient was deemed in satisfactory condition to undergo the procedure. The anesthesia plan was to use monitored anesthesia care (MAC). Immediately prior to administration of medications, the patient was re-assessed for adequacy to receive sedatives. The heart rate, respiratory rate, oxygen saturations, blood pressure, adequacy of pulmonary ventilation, and response to care were monitored throughout the procedure. The physical status of the patient was re-assessed after the procedure. After I obtained informed consent, the scope was passed under direct vision. Throughout the procedure, the patient's blood pressure, pulse, and oxygen saturations were monitored continuously. The adult colonoscope was introduced through the anus and advanced to the cecum, identified by appendiceal orifice and ileocecal valve. The colonoscopy was performed without difficulty. The patient tolerated the procedure well. The quality of the bowel preparation was adequate. The ileocecal valve, appendiceal orifice, and rectum were photographed. Scope In: 3:28:05 PM Scope Withdrawal Time 0 hours 13 minutes 47 seconds Scope Out: 3:49:27 PM Total Procedure Duration Time 0 hours 21 minutes 22 seconds Findings: The perianal and digital rectal examinations were normal. Multiple small and large-mouthed diverticula were found in the recto-sigmoid colon, sigmoid colon and descending colon. A 10 mm polyp was found in the recto-sigmoid colon. The polyp was semi-pedunculated. The polyp was removed with a hot snare. Resection and retrieval were complete. Verification of patient identification for the specimen was done. Estimated blood loss was minimal. A 5 mm polyp was found in the transverse colon. The polyp was sessile. The polyp was removed with a jumbo cold forceps. Resection and retrieval were complete. Verification of patient identification for the specimen was done. Estimated blood loss was minimal. Non-bleeding external and internal hemorrhoids were found during retroflexion, during perianal exam and during digital exam. The hemorrhoids were large and Grade III (internal hemorrhoids that prolapse but require manual reduction). Localized moderate inflammation characterized by erosions, erythema, friability and granularity was found in the recto-sigmoid colon. A 3 mm anal fissure was found in the anal canal. Impression: - Diverticulosis in the recto-sigmoid colon, in the sigmoid colon and in the descending colon. - One 10 mm polyp at the recto-sigmoid colon, removed with a hot snare. Resected and retrieved. - One 5 mm polyp in the transverse colon, removed with a jumbo cold forceps. Resected and retrieved. - Non-bleeding external and internal hemorrhoids. - Localized moderate inflammation was found in the recto-sigmoid colon secondary to ischemic colitis. - Anal fissure. Recommendation: - Discharge patient to home. - Resume previous diet. - Continue present medications. - Await pathology results. - No repeat colonoscopy due to age. Procedure Code(s): --- Professional --- 70014, Colonoscopy, flexible; with removal of tumor(s), polyp(s), or other lesion(s) by snare technique 21585, 59, Colonoscopy, flexible; with biopsy, single or multiple CPT copyright 2021 [employer]. All rights reserved. The codes documented in this report are preliminary and upon hub associate review may be revised to meet current compliance requirements. Teodoro Real DO 01/01/2025 3:59:59 PM This report has been signed electronically. Number of Addenda: 0 Note Initiated On: 01/01/2025 3:18 PM
--- NOTE | 2025-01-01 16:00 | OP.CCLET_ITS ---
01/01/2025 Viktoriya Lamb [address] [place] [address] Re : Colonoscopy procedure for Chanelstacey Rousseau Dear Dr. Lamb This procedure was performed on Wednesday, January 01, 2025. My impressions and recommendations are as follows: Impressions : - Diverticulosis in the recto-sigmoid colon, in the sigmoid colon and in the descending colon. - One 10 mm polyp at the recto-sigmoid colon, removed with a hot snare. Resected and retrieved. - One 5 mm polyp in the transverse colon, removed with a jumbo cold forceps. Resected and retrieved. - Non-bleeding external and internal hemorrhoids. - Localized moderate inflammation was found in the recto-sigmoid colon secondary to ischemic colitis. - Anal fissure. Recommendations : - Discharge patient to home. - Resume previous diet. - Continue present medications. - Await pathology results. - No repeat colonoscopy due to age. My findings are described in the full procedure note, which is enclosed. If I can be of further assistance, please feel free to contact me at . Sincerely, Teodoro Real, 01/01/2025 3:59:59 PM This report has been signed electronically.
--- NOTE | 2025-01-01 18:42 | PCM.POSTANE2 ---
Anesthesia Postop Eval I Sum Postop Eval Completion status Anesthesia document: Postop Eval 1 completed: Yes Anesthesia Postop Eval I Summary Anesthesia Postop Eval I Summary: Anesthesia Postop Eval I: Assessment Summary Airway patent Yes 01/01/25 15:58 [email or web address] Spontaneous unlabored Yes 01/01/25 15:58 [email or web address] respirations Mental status Awake,Calm 01/01/25 15:58 [email or web address] nausea No 01/01/25 15:58 [email or web address] Vomiting No 01/01/25 15:58 [email or web address] Anesthesia Postop Eval I: Fluid Summary Crystalloid volume administer 400 01/01/25 15:58 [email or web address] (ml) Colloids volume administered ( ml) Blood Product volume administered (ml) Total IV fluid infused 400 01/01/25 15:58 [email or web address] Anesthesia Postop Eval I: Summary Notes Anesthesia Complication No 01/01/25 15:58 [email or web address] Anesthesia Complication Comment: Post-operative progress note Anesthesia: Postop Eval II Evaluation Mental status: Awake Pain Level: 0 nausea: No Vomiting: No Complications Anesthesia Complication: No
== END 2025-01-01 16:50 | disposition home or self-care (01) ==
LOC: EN 13:51 → AC 13:53
PROVIDERS: PCP Internal Medicine; Referring Provider Internal Medicine; Visit Provider Internal Medicine Gastroenterology
PROC: 0DJD8ZZ Inspection of Lower Intestinal Tract, Via Natural or Artificial Opening Endoscopic (ICD-10-PCS; CPT 45378; principal; 2025-01-01 14:55)
DX: K63.5 Polyp of colon (principal); I50.32 Chronic diastolic (congestive) heart failure; I13.0 Hypertensive heart and chronic kidney disease with heart failure and stage 1 through stage 4 chronic kidney disease, or unspecified chronic kidney disease; J44.9 Chronic obstructive pulmonary disease, unspecified; E11.22 Type 2 diabetes mellitus with diabetic chronic kidney disease; N18.30 Chronic kidney disease, stage 3 unspecified; D12.3 Benign neoplasm of transverse colon; K64.2 Third degree hemorrhoids; K64.4 Residual hemorrhoidal skin tags; K58.0 Irritable bowel syndrome with diarrhea; K60.2 Anal fissure, unspecified; K55.9 Vascular disorder of intestine, unspecified; D64.9 Anemia, unspecified; E78.00 Pure hypercholesterolemia, unspecified; K57.30 Diverticulosis of large intestine without perforation or abscess without bleeding; Z79.51 Long term (current) use of inhaled steroids; Z79.01 Long term (current) use of anticoagulants; Z79.899 Other long term (current) drug therapy; Z87.891 Personal history of nicotine dependence; I25.2 Old myocardial infarction; Z86.73 Personal history of transient ischemic attack (TIA), and cerebral infarction without residual deficits
CPT/HCPCS: 45385; 45380; 88305; J2405

== ENCOUNTER 2025-01-07 15:25 | Emergency (ER) | payer MEDICARE, SELFPAY ==
[2025-01-07 15:25] VITALS: BP 111/76; PULSE 102; RESP 18; TEMP 36.6; O2SAT 95; BMI 26.6
--- NOTE | 2025-01-07 15:47 | ED.VIS.FALL ---
HPI HPI - Fall History of Present Illness Chief Complaint: Fall Narrative Narrative: 89-year-old female past medical history of prior stroke on Plavix presents status post mechanical fall prior to arrival. She relates history that she was coming into the house carrying groceries, when she tripped and fell forward. She struck her head and her face but denies loss of consciousness, no neck pain. She fell onto her left wrist as well. She complains of swelling of her right forehead as well as swelling and pain with movement of her left wrist. She is right-hand dominant. She had to crawl on the floor to get her phone, and she called her daughter who in turn called 911 because she could not get up. [facility] Medical History GI (gastrointestinal bleed) Rash Back pain Cancer Thyroid disease Ambulates with cane History of renal disease TIA (transient ischemic attack) Acute diverticulitis Wears glasses Wears dentures Arthritis Low iron Anemia High cholesterol Migraine headache Restless legs Difficulty chewing History of diverticulitis Heartburn Gastric reflux Former smoker On home oxygen therapy Shortness of breath on exertion Chronic cough History of edema History of echocardiogram History of stress test Cardiology follow-up encounter Hypertension Chronic hypoxic respiratory failure History of diabetes mellitus History of hypertension Diverticulitis History of chronic heart failure History of COPD COPD (chronic obstructive pulmonary disease) Anemia Chronic heart failure with preserved ejection fraction (HFpEF) Hyperlipidemia Right lumbar radiculopathy CKD (chronic kidney disease), stage III Hypertension Chronic kidney disease PAD (peripheral artery disease) Renal cyst History of TIA (transient ischemic attack) Bilateral carotid artery stenosis Claudication RLS (restless legs syndrome) Diverticulosis TIA (transient ischemic attack) Vertigo Leg edema Dyslipidemia Home Medications ?Medication ?Instructions ?Recorded ?Last Taken ?Type atorvastatin 40 mg tablet 40 mg PO QHS cholesterol 02/22/16 11/27/24 History clopidogrel 75 mg tablet 75 mg PO DAILY BLOOD THINNER 02/22/16 12/26/24 History albuterol sulfate 90 mcg/actuation 2 puff inhalation Q4H PRN 03/16/18 09/27/24 History aerosol inhaler shortness of breath or wheezing pramipexole 1.5 mg tablet 1.5 mg PO QHS restless leg syndrome 08/18/23 11/27/24 History polysaccharide iron complex 150 mg 150 mg PO DAILY supplement 30 days 10/12/23 12/26/24 Rx iron capsule (Ferrex) #30 caps acetaminophen 500 mg tablet 1,000 mg PO Q6H PRN pain 02/14/24 Unknown History arformoterol 15 mcg/2 mL solution 15 mcg inhalation BID breathing 02/14/24 01/01/25 History for nebulization spironolactone 25 mg tablet 25 mg PO DAILY diuretic 02/14/24 11/28/24 History cholecalciferol (vitamin D3) 125 125 mcg PO DAILY 30 days #30 caps 06/08/24 11/28/24 Rx mcg (5,000 unit) capsule furosemide 40 mg tablet 40 mg PO BID FLUID RETENTION 09/24/24 11/28/24 History pantoprazole 40 mg tablet,delayed 40 mg PO BID reflux 09/24/24 01/01/25 History release budesonide 0.5 mg/2 mL suspension 0.5 mg inhalation BID breathing 11/28/24 01/01/25 History for nebulization carvedilol 25 mg tablet 25 mg PO BID 11/28/24 01/01/25 History magnesium oxide 400 mg PO DAILY 11/28/24 11/28/24 History potassium chloride 20 mEq/15 mL 20 meq PO DAILY 11/28/24 11/28/24 History oral liquid cetirizine 10 mg tablet (24Hour 10 mg PO DAILY 12/17/24 Unknown History Allergy) dicyclomine 10 mg capsule 10 mg PO BID #20 caps 12/18/24 Unknown Rx peg 3350-electrolytes 236 240 ml PO Q10M #4,000 mL 12/18/24 Unknown Rx gram-22.74 gram-6.74 gram-5.86 gram solution (Golytely) duloxetine 60 mg capsule,delayed 60 mg PO DAILY 12/27/24 01/01/25 History release oxycodone 5 mg tablet 5 mg PO Q6H PRN pain 3 days #12 01/07/25 Unknown Rx tabs Allergy/AdvReac Type Severity Reaction Status Date / Time lisinopril Allergy edema Verified 12/27/24 15:21 aspirin AdvReac Upset Verified 12/27/24 15:21 Stomach Family History Mother Heart disease Surgical History History of thyroid surgery History of carotid angioplasty History of kidney stones History of basal cell carcinoma excision History of total hysterectomy Social History household members: none housing: house Smoking Status: Former smoker how long ago did patient quit smokin years ago alcohol intake: current alcohol intake frequency: holidays/special occasions only details: rare substance use type: does not use caffeine: Yes Type: coffee Number of servings: 1 ROS ROS ED ROS Narrative Review of systems positive for hematoma right forehead, pain and swelling of left wrist. Positive abrasions to bridge of nose. Denies other injuries. [id number]. No loss of consciousness or neck pain. EXAM Physical Exam Narrative Exam Narrative: GCS 15. ABCs are intact. Right forehead shows moderately sized hematoma. No nasal septal hematoma. Positive abrasions on bridge of nose without active bleeding. No nasal septal hematoma. PERRL EOMI. Full range of motion of neck without pain. No vertebral point tenderness or bony step-off. Cardiovascular examination regular rate and rhythm. Lungs are clear to auscultation bilaterally. Abdomen is soft and nontender with normoactive bowel sounds, no guarding or rebound. Neurological examination nonfocal, nonlateralizing. Able to raise arms above head without difficulty. Musculoskeletal examination shows tenderness to palpation and swelling diffusely at base of left thumb and diffusely throughout left wrist. Const Vital Signs: 01/07/25 15:25 01/07/25 15:29 01/07/25 16:25 Temperature 97.8 F Temperature Source Oral Pulse Rate 102 H 89 Respiratory Rate 18 16 Respiratory Effort Normal Non-Labored Respiratory Depth Normal Respiratory Pattern Normal Blood Pressure 111/76 109/67 Blood Pressure Mean 87 81 Pulse Ox 95 98 Oxygen Delivery Method Room Air Room Air Room Air 01/07/25 17:00 01/07/25 18:00 Temperature Temperature Source Pulse Rate 91 89 Respiratory Rate 18 18 Respiratory Effort Respiratory Depth Respiratory Pattern Blood Pressure 120/57 L 120/57 L Blood Pressure Mean 78 78 Pulse Ox 98 98 Oxygen Delivery Method Room Air Room Air MDM MDM MDM Narrative Medical decision making narrative: Differential diagnosis includes but not limited to closed head injury versus intracranial hemorrhage versus skull fracture versus left wrist sprain versus fracture. As the patient is on Plavix, CT imaging of the brain will be obtained to help rule out subarachnoid hemorrhage or intraparenchymal hemorrhage versus subdural. X-rays obtained of the left wrist and interpreted by myself independently. On my independent interpretation of the left wrist x-ray there is a mildly displaced fracture of the left distal radius, comminuted, does not appear to be intra-articular. I reviewed the radiology report which confirms my independent interpretation. I reviewed the radiology report of the CT of the brain as well and there is no acute intracranial process, but she does have a moderately sized right forehead hematoma. At this point in time, I discussed hematoma block versus procedural sedation for closed reduction of her left wrist. She declined both hematoma block and procedural sedation. She was given oxycodone for analgesia. I discussed the patient with Dr. Tarango and informed him of her hesitancy of having hematoma block and procedural sedation for reduction performed. She was placed in an AP splint with molding of the splint. She was written a prescription for oxycodone and will continue Tylenol as well. She will follow-up with orthopedics, Dr. Tarango. Return instructions to the emergency department were reviewed. Disposition is discharged home in stable condition. Additionally, given the abrasions on her nasal bridge, I reviewed her prior records and her last Tdap was in 2013, greater than 10 years ago. She was administered immunization update here. Disposition is discharged home in stable condition. History & Record Review Discussion w/independent historian: Patient and Family Radiography Diagnostic Testing: Clinical Impression(s) from Imaging Studies Brain CT 01/07/25 16:03 IMPRESSION: No acute intracranial process. Moderate right anterior scalp hematoma. No acute calvarial defect. Right temporal sulcal hyperdensity (series 2, image 16) likely volume averaging artifact from skull base. Reading Location: [id number] Wrist X-Ray 01/07/25 16:08 IMPRESSION: Mildly displaced fracture of the left distal radius. Reading Location: [id number] Management Discussion w/another healthcare provider: Delivery Motorcycle Driver (Dr. Tarango, orthopedics) Discharge Plan Triage Chief Complaint: Fall ED Provider: Rafal Herrera Dx/Rx/DC Orders Clinical Impression: Fall, Closed fracture of distal end of radius, Abrasion, Traumatic hematoma of forehead, Closed head injury Instructions: ED Abrasion, ED Head Injury (Adult), ED Hematoma, ED Fracture, Wrist, General Prescriptions: New oxycodone 5 mg tablet 5 mg PO Q6H PRN (Reason: pain) 3 Days Qty: 12 0RF No Action acetaminophen 500 mg tablet 1,000 mg PO Q6H PRN (Reason: pain) arformoterol 15 mcg/2 mL solution for nebulization 15 mcg inhalation BID spironolactone 25 mg tablet 25 mg PO DAILY dicyclomine 10 mg capsule 10 mg PO BID Qty: 20 1RF peg 3350-electrolytes [Golytely] 236-22.74-6.74 -5.86 gram recon soln 240 ml PO Q10M Qty: 4000 0RF Rx Instructions: until fecal effluent is clear atorvastatin 40 MG tablet 40 mg PO QHS clopidogrel 75 MG tablet 75 mg PO DAILY albuterol sulfate 90 mcg/actuation HFA aerosol inhaler 2 puff INHALATION Q4H PRN (Reason: shortness of breath or wheezing) pramipexole 1.5 mg tablet 1.5 mg PO QHS cholecalciferol (vitamin D3) 125 mcg (5,000 unit) Capsule 125 mcg PO DAILY 30 Days Qty: 30 0RF carvedilol 25 mg tablet 25 mg PO BID magnesium oxide 400 mg magnesium capsule 400 mg PO DAILY potassium chloride 20 mEq/15 mL liquid 20 meq PO DAILY budesonide 0.5 mg/2 mL suspension for nebulization 0.5 mg inhalation BID duloxetine 60 mg capsule,delayed release(DR/EC) 60 mg PO DAILY polysaccharide iron complex [Ferrex 150] 150 mg iron Capsule 150 mg PO DAILY 30 Days Qty: 30 0RF furosemide 40 mg tablet 40 mg PO BID pantoprazole 40 mg Tablet,Delayed Release (Dr/Ec) 40 mg PO BID cetirizine [24Hour Allergy] 10 mg tablet 10 mg PO DAILY Primary Care Provider: Viktoriya Lamb Referrals: Viktoriya Lamb MD [Primary Care Provider] - Jose Tarango DO [Med Staff - Active Staff] - 5-7 Days Activity Restrictions/Additional Instructions: Follow-up with orthopedics within the next few days. Call for an appointment. Continue ice and elevation of your left wrist when possible. Oxycodone as needed for breakthrough pain. You can continue Tylenol as needed for pain as well. Return with new or worsening symptoms. Print Language: Vietnamese Disposition Disposition: Home, Self Care
--- NOTE | 2025-01-07 16:03 | CT_ITS ---
PROCEDURE: BRAIN/HEAD WITHOUT CONTRAST 01/07/2025 REASON FOR EXAM: HEAD INJURY ON ANTICOAGULATION TECHNIQUE: BRAIN/HEAD WITHOUT CONTRAST Coronal and Sagittal reconstruction series were provided. One or more dose reduction techniques were used (e.g., Automated exposure control, adjustment of the mA and/or kV according to patient size, use of iterative reconstruction technique. RADIATION DOSE SUMMARY: DLP: 813 mGycm COMPARISON: 06/06/2024 FINDINGS: Right temporal sulcal hyperdensity (series 2, image 16) likely volume averaging artifact from skull base. There is no acute infarct, intracranial hemorrhage, or mass effect. There is no hydrocephalus or significant midline shift. There is ofos-me-krjjcogr chronic microvascular ischemic changes and [id number] parenchymal volume loss. No acute, depressed calvarial fractures. Moderate right anterior scalp hematoma. CT/Brain/Head without Contrast IMPRESSION: No acute intracranial process. Moderate right anterior scalp hematoma. No acut e calvarial defect. Right temporal sulcal hyperdensity (series 2, image 16) likely volume averaging artifact from skull base. Reading Location: [id number]
--- NOTE | 2025-01-07 16:08 | RAD_ITS ---
PROCEDURE: WRIST MIN 3 VIEWS 01/07/2025 REASON FOR EXAM: TRAUMA TECHNIQUE: WRIST MIN 3 VIEWS COMPARISON: None FINDINGS: There is a slightly comminuted fracture of the distal radius with mild apex volar angulation, without definite intra-articular extension. There is surrounding soft tissue swelling. No displaced fracture of the distal ulna. Punctate calcifications near the ulnar styloid may represent sequela of calcific pyrophosphate deposition disease. Degenerative changes at the 1st carpometacarpal and triscaphe joints. RAD/Wrist min 3 Views IMPRESSION: Mildly displaced fracture of the left distal radius. Reading Location: [id number]
[2025-01-07 16:25] VITALS: BP 109/67; PULSE 89; RESP 16; O2SAT 98
[2025-01-07 17:00] VITALS: BP 120/57; PULSE 91; RESP 18; O2SAT 98
[2025-01-07] MEDS: oxyCODONE 5 MG Tablet PO (17:05)
[2025-01-07 18:00] VITALS: BP 120/57; PULSE 89; RESP 18; O2SAT 98
[2025-01-07] MEDS: Diphth,Pertuss(Acell),Tet Vac 0.5 ML Vial IM (18:39)
[2025-01-07 18:56] VITALS: BP 124/65; PULSE 93; RESP 18; TEMP 36.9; O2SAT 94
== END 2025-01-07 19:06 | disposition home or self-care (01) ==
PROVIDERS: Emergency Provider Emergency Medicine; PCP Internal Medicine; Visit Provider Emergency Medicine
DX: S52.502A Unspecified fracture of the lower end of left radius, initial encounter for closed fracture (principal); I50.32 Chronic diastolic (congestive) heart failure; I13.0 Hypertensive heart and chronic kidney disease with heart failure and stage 1 through stage 4 chronic kidney disease, or unspecified chronic kidney disease; J44.9 Chronic obstructive pulmonary disease, unspecified; E11.22 Type 2 diabetes mellitus with diabetic chronic kidney disease; N18.30 Chronic kidney disease, stage 3 unspecified; Z23 Encounter for immunization; S00.83XA Contusion of other part of head, initial encounter; S00.31XA Abrasion of nose, initial encounter; W18.09XA Striking against other object with subsequent fall, initial encounter; Y92.019 Unspecified place in single-family (private) house as the place of occurrence of the external cause; Y93.89 Activity, other specified; E78.00 Pure hypercholesterolemia, unspecified; Z79.02 Long term (current) use of antithrombotics/antiplatelets; Z79.899 Other long term (current) drug therapy; Z86.73 Personal history of transient ischemic attack (TIA), and cerebral infarction without residual deficits; Z87.891 Personal history of nicotine dependence
CPT/HCPCS: 29125; 70450; 73110; 90715; 99284

== ENCOUNTER 2025-01-11 10:13 | Inpatient (IN) | payer MEDICARE, SELFPAY ==
[2025-01-11] VITALS (25 sets, daily range): BP systolic 77–120; BP diastolic 41–78; PULSE 78–99; RESP 16–33; TEMP 36.6–37.2; O2SAT 92–100; BMI 26.6; BMI 26.1
[2025-01-11] MEDS: 0.9% Normal Saline (1000mL) 1,000 ML 999 ML IV ×3 (10:45→14:15)
--- NOTE | 2025-01-11 11:10 | EX.ED.DYSGE1 ---
HPI History of Present Illness Chief Complaint: Hypotension Informant: patient, family and EMS Narrative Narrative: 89-year-old female presenting with generalized weakness. She has been having black tarry stools recently, occasional diffuse abdominal cramping that is relatively mild but no nausea or vomiting. She takes iron pills. She had a colonoscopy several weeks ago was diagnosed with ischemic colitis, she has been back on her aspirin and clopidogrel since then. She takes those because of a prior TIA. She denies any syncopal episodes, but she is feeling really weak and tired to the point where seventh of occultly getting up. For EMS and around here her blood pressure was in the 70s. Patient alert. She did not have an EGD couple weeks ago. She had a fall subsequently, earlier this week, broke her left wrist and injured her head, she had a negative CT here in the ER followed up with orthopedics Dr. Tarango and had a cast the next day which was placed 3 days ago. She states her wrist is really hurting, she went and saw Dr. Mcmanus with orthopedics yesterday who did not remove the cast saying everything looked okay and had her continue her oxycodone which she has done. She states it still hurting. She states all her fingers feel a little tingly. [facility] Medical History GI (gastrointestinal bleed) Rash Back pain Cancer Thyroid disease Ambulates with cane History of renal disease TIA (transient ischemic attack) Acute diverticulitis Wears glasses Wears dentures Arthritis Low iron Anemia High cholesterol Migraine headache Restless legs Difficulty chewing History of diverticulitis Heartburn Gastric reflux Former smoker On home oxygen therapy Shortness of breath on exertion Chronic cough History of edema History of echocardiogram History of stress test Cardiology follow-up encounter Hypertension Chronic hypoxic respiratory failure History of diabetes mellitus History of hypertension Diverticulitis History of chronic heart failure History of COPD COPD (chronic obstructive pulmonary disease) Anemia Chronic heart failure with preserved ejection fraction (HFpEF) Hyperlipidemia Right lumbar radiculopathy CKD (chronic kidney disease), stage III Hypertension Chronic kidney disease PAD (peripheral artery disease) Renal cyst History of TIA (transient ischemic attack) Bilateral carotid artery stenosis Claudication RLS (restless legs syndrome) Diverticulosis TIA (transient ischemic attack) Vertigo Leg edema Dyslipidemia Home Medications ?Medication ?Instructions ?Recorded ?Last Taken ?Type atorvastatin 40 mg tablet 40 mg PO QHS cholesterol 02/22/16 11/27/24 History clopidogrel 75 mg tablet 75 mg PO DAILY BLOOD THINNER 02/22/16 12/26/24 History albuterol sulfate 90 mcg/actuation 2 puff inhalation Q4H PRN 03/16/18 09/27/24 History aerosol inhaler shortness of breath or wheezing pramipexole 1.5 mg tablet 1.5 mg PO QHS restless leg syndrome 08/18/23 01/10/25 History polysaccharide iron complex 150 mg 150 mg PO DAILY supplement 30 days 10/12/23 12/26/24 Rx iron capsule (Ferrex) #30 caps acetaminophen 500 mg tablet 1,000 mg PO Q6H PRN pain 02/14/24 01/10/25 History arformoterol 15 mcg/2 mL solution 15 mcg inhalation BID breathing 02/14/24 01/01/25 History for nebulization spironolactone 25 mg tablet 25 mg PO DAILY diuretic 02/14/24 11/28/24 History cholecalciferol (vitamin D3) 125 125 mcg PO DAILY 30 days #30 caps 06/08/24 11/28/24 Rx mcg (5,000 unit) capsule furosemide 40 mg tablet 40 mg PO BID FLUID RETENTION 09/24/24 11/28/24 History pantoprazole 40 mg tablet,delayed 40 mg PO BID reflux 09/24/24 01/01/25 History release budesonide 0.5 mg/2 mL suspension 0.5 mg inhalation BID breathing 11/28/24 01/10/25 History for nebulization carvedilol 25 mg tablet 25 mg PO BID 11/28/24 01/01/25 History magnesium oxide 400 mg PO DAILY 11/28/24 11/28/24 History potassium chloride 20 mEq/15 mL 20 meq PO DAILY 11/28/24 11/28/24 History oral liquid duloxetine 60 mg capsule,delayed 60 mg PO DAILY 12/27/24 01/01/25 History release oxycodone 5 mg tablet 5 mg PO Q6H PRN pain 3 days #12 01/07/25 01/11/25 Rx tabs Allergy/AdvReac Type Severity Reaction Status Date / Time lisinopril Allergy edema Verified 01/11/25 10:14 aspirin AdvReac Upset Verified 01/11/25 10:14 Stomach Family History Mother Heart disease Surgical History History of thyroid surgery History of carotid angioplasty History of kidney stones History of basal cell carcinoma excision History of total hysterectomy Social History household members: none housing: house Smoking Status: Former smoker how long ago did patient quit smokin years ago alcohol intake: current alcohol intake frequency: holidays/special occasions only details: rare substance use type: does not use caffeine: Yes Type: coffee Number of servings: 1 ROS ROS ED Constitutional Constitutional ED: Reports fatigue and weakness; Denies chills or fever(s) Eyes Eyes: Denies change in vision or diplopia ENT ENT ED: Denies rhinorrhea or sore throat Cardiovascular Cardiovascular: Denies chest pain, palpitations or syncope Respiratory/Chest Respiratory/Chest: Denies cough or dyspnea Gastrointestinal Gastrointestinal: Reports abdominal pain and melena; Denies diarrhea, nausea or vomiting Genitourinary Genitourinary ED: Denies dysuria or hematuria Musculoskeletal Musculoskeletal: Denies back pain or neck pain Integumentary Denies abscess or rash Neurologic Neurologic: Denies headache(s), paresthesias or weakness Psychiatric Psychiatric: Denies suicidal thoughts EXAM Physical Exam Const Vital Signs: 01/11/25 10:16 01/11/25 10:19 01/11/25 10:51 Temperature 98.3 F Temperature Source Oral Pulse Rate 99 92 Respiratory Rate 18 20 H Respiratory Effort Normal Non-Labored Respiratory Pattern Normal Blood Pressure 83/44 L 83/50 L Blood Pressure Mean 57 61 Pulse Ox 95 99 Oxygen Delivery Method Nasal Cannula Nasal Cannula Oxygen Flow Rate (L/min) 2 2 01/11/25 11:20 01/11/25 11:29 01/11/25 14:00 Temperature Temperature Source Pulse Rate 87 92 Respiratory Rate 18 18 Respiratory Effort Respiratory Pattern Blood Pressure 90/43 L 82/69 L Blood Pressure Mean 58 73 Pulse Ox 98 97 98 Oxygen Delivery Method Nasal Cannula Nasal Cannula Room Air Oxygen Flow Rate (L/min) 2 2 Positive well nourished and well developed General Appearance ED: well developed and NAD HEENT Reports moist mucous membranes HEENT Narrative: Raccoon eyes. Small hematoma forehead. No CSF otorhinorrhea. normocephalic and atraumatic Eyes PERRL and EOMs intact bilaterally Neck full ROM and supple Resp normal respiratory effort and clear to auscultation bilaterally Cardio regular rate and regular rhythm GI non-tender and non-distended GI Narrative: Rectal without gross blood or melena or tenderness. Auscultation: normoactive bowel sounds Palpation: soft Back/Spine no CVA tenderness General Back: other FROM Extremity normal to inspection Extremity Narrative: Left wrist casted to mid forearm, there is ecchymosis proximal to this that is nontender, the compartments of the forearm are nice and soft and nondistended. She has brisk cap refill all fingers distally, she can wiggle her fingers without any apparent difficulty, I can get a finger beneath the cast material in her palm and on the dorsal aspect of the proximal portion of the cast at her forearm. General Extremety ED: Negative for edema, pulses abnormal or tenderness General Extremity: Negative for edema or pulses abnormal Neuro oriented x3, CN's II-XII intact bilaterally and no sensory deficits noted Neuro Narrative: No focal neurologic deficits Sensorium / Orientation: awake and alert Motor Exam: general weakness Psych mental status grossly normal Skin no rashes or lesions noted and no wounds Sepsis Attestation Sepsis Attestation: Agree w/Sepsis Date exam was performed: 01/11/25 Time exam was performed: 13:45 Possible Source of Sepsis: Pulmonary and Genitourinary Sepsis Organ Dysfunction Criteria Present: SBP < 90 mmHg or MAP < 65 mmHg, Creatinine > 2.0 mg/dL and Lactic Acid > 2 mmol/L Fluid Resuscitation Fluid resuscitation indicated?: Yes Fluid Resuscitation ordered: 30 ml/kg fluid bolus ordered Sepsis Note Date exam was performed: 01/11/25 Time exam was performed: 14:45 Sepsis Attestation: Sepsis re-evaluation was performed Response to fluids: Fluid responsive hypotension MDM MDM MDM Narrative Medical decision making narrative: Patient in the 70s with regards to her blood pressure for EMS, here 83/44 so she was given IV fluid bolus and type and screen for blood, had a concern for possible upper GI bleed. Hemoglobin is low at 9.3, but she does not have active bleeding, and her blood pressure responded to IV fluids, before 1.5 L her up, her systolic is 108 and her MAP is over 65. Therefore I do not think she needs an emergent blood transfusion, but her blood count will be tracked. Her troponin is nonspecifically elevated at 64, but her EKG shows no acute injury and she is having no symptoms of angina. This will be monitored as well. Discussed with Dr. Real, he advises that we leave the patient n.p.o. and agree she will need an EGD and agrees with the pantoprazole that we gave her. Her lactate is elevated, 3.2. In looking at her white blood count, it is low, with a concerning differential with 24% bands, as well as other immature cells making me more suspicious of infection. 1 view chest x-ray was performed and on my interpretation shows a right middle lobe infiltrate so I ordered antibiotics. After the second liter is finished her blood pressure went down to the high 80s again, that completes her 30 cc/kg fluid bolus. Therefore I ordered another fluid and had a discussion with the patient and daughter about pressors and CODE STATUS. At this time the patient wants to be a full code and is okay with pressors and intubation if needed. I started her third liter, and a quarter of the way and her blood pressure is now 102/48. She is keenly alert and conversive. We discussed a central line which she was okay with, but hospitalist prefers to have her get a PICC line, so they are calling in the nurses to place that and we are holding off on Levophed and second set of blood cultures antibiotics to be started. Urinalysis still pending. History & Record Review Discussion w/independent historian: Patient and Family Lab Data Attestation: I reviewed the patient's lab results. Labs: Laboratory Results - last 24 hr 01/11/25 01/11/25 11:05 13:15 WBC 2.7 L RBC 2.93 L Hgb 9.3 L Hct 29.0 L MCV 99.0 MCH 31.7 MCHC 32.1 RDW Std Deviation 52.8 H RDW Coeff of Ha 14.5 Plt Count 143 L MPV 10.9 Neut % (Auto) Not Reportable Absolute Neuts (auto) 1.8 L Absolute Lymphs (auto) 0.56 L Total Counted 100 Neutrophils % (Manual) 42 L Band Neutrophils % 24 H Lymphocytes % (Manual) 21 Monocytes % (Manual) 5 Eosinophils % (Manual) 1 Basophils % (Manual) 1 Metamyelocytes % 5 H Myelocytes % 1 H Diff Path Review May foll Platelet Estimate SLT DEC Polychromasia 1+ Sodium 135 Potassium 4.1 Chloride 96 L Carbon Dioxide 21.3 Anion Gap 18 H BUN 74 H Creatinine 3.03 H Estim Creat Clear Calc 11.66 L Est GFR (MDRD) Non-Af 14 L BUN/Creatinine Ratio 24.3 H Glucose 88 Lactic Acid 3.2 H* Calcium 6.6 L Total Bilirubin 0.49 AST 60 H ALT 17 Alkaline Phosphatase 55 Troponin T High Sens 64 H* Troponin T Hi Sens 2 Hr 45 H Total Protein 5.4 L Albumin 2.6 L Globulin 2.8 Albumin/Globulin Ratio 0.9 Blood Type A NEGATIVE Antibody Screen NEGATIVE Radiography Diagnostic Testing: Clinical Impression(s) from Imaging Studies Chest X-Ray 01/11/25 13:20 IMPRESSION: Subtle airspace disease is seen in the right lung base, with differential diagnosis including Atelectasis and Pneumonitis. No pleural effusion or pneumothorax is seen. The cardiomediastinal silhouette is stable, without evidence of cardiomegaly. A tortuous aorta is again noted. No interval osseous change is identified. Reading Location: [place] [id number] Rhythm Strip Rhythm Strip: Sinus Rhythm Rate: 90 Ectopy: None EKG Initial EKG: Attestation: I personally reviewed and interpreted this EKG as follows: Interpretation: Sinus Rhythm, No Acute Injury Pattern and RBBB Management Discussion w/another healthcare provider: Hospitalist and Developing Machine Operator (GI) Critical Care Time Critical Care Time: Yes Critical care time (excluding procedures): 30-74 minutes (46 min), Including time spent:, Discussing w/Patient &/or Family/All Around Gear Machine Operator, Discussing w/Consultants, Arranging Admission or Transfer and Performing Direct Patient Care at Bedside Discharge Plan Dx/Rx/DC Orders Clinical Impression: ABLA (acute blood loss anemia), UGIB (upper gastrointestinal bleed), Generalized weakness, Elevated troponin, Transient hypotension, Sepsis, Pneumonia Disposition Disposition: [facility]
[2025-01-11 11:26] LABS: Hematocrit 29.0 % (37-47); Hemoglobin 9.3 g/dL (12.0-15.0); Mean Corp Hgb Conc 32.1 g/dL (32-36); Mean Corpuscular Volume 99.0 fL (81-99); Mean Platelet Vol. 10.9 fl (6.2-12.0); POSITIVE COUNT YES; POSITIVE DIFFERENTIAL YES; POSITIVE MORPHOLOGY YES; Platelet Count 143 K/mm3 (150-450); RBC Distribution Width CV 14.5 % (11.6-14.6); RBC Distribution Width SD 52.8 fl (35.1-43.9); Red Blood Count 2.93 M/mm3 (4.2-5.4); White Blood Count 2.7 K/mm3 (4.4-11.0)
[2025-01-11] MEDS: Pantoprazole Sodium 40 MG in 0.9% Normal Saline (100mL MB+) 100 ML 300 MG IV (11:28)
[2025-01-11 11:40] LABS: Differential Indicated MANUAL DIFF
[2025-01-11 12:03] LABS: AST(SGOT) 60 U/L (<=31); Alanine Aminotransfer ALT/SGPT 17 U/L (<=34); Albumin, Serum 2.6 g/dL (3.4-4.8); Alkaline Phosphatase 55 U/L (35-104); Anion Gap 18 (5-15); BUN 74 mg/dL (4-19); BUN/Creat Ratio 24.3 RATIO (10-20); Calcium,Total 6.6 mg/dL (7.6-11.0); Carbon Dioxide 21.3 mmol/L (21.0-32.0); Chloride 96 mmol/L (98-108); Estimated Creatinine Clearance 11.66 ml/min (50-250); Globulin 2.8 g/dL (2.2-4.2); Glucose 88 mg/dL (70-99); Potassium 4.1 mmol/L (3.3-5.1); Troponin T High Sensitivity 64 ng/L (<=14)
[2025-01-11 12:09] LABS: Neutrophil-Band 24 % (0-5); Neutrophil-Segmented 42 % (47-70); Total Cells Counted 100 (MANUAL DIFF)
[2025-01-11 12:33] LABS: Polychromasia 1+
[2025-01-11] MEDS: fentaNYL 100 MCG/2 ML Ampul 25 MCG IV (13:14)
--- NOTE | 2025-01-11 13:20 | RAD_ITS ---
PROCEDURE: CHEST 1 VIEW (PORTABLE) 01/11/2025 REASON FOR EXAM: WEAKNESS TECHNIQUE: Frontal view of the chest. COMPARISON: Chest x-ray of 12/17/2024. RAD/Chest 1 View (Portable) IMPRESSION: Subtle airspace disease is seen in the right lung base, with differential diagn osis including Atelectasis and Pneumonitis. No pleural effusion or pneumothorax is seen. The cardiomediastinal silhouette is stable, without evidence of cardiomegaly. A tortuous aorta is again noted. No interval osseous change is identified. Reading Location: [place] [id number]
[2025-01-11 13:50] LABS: Troponin T High Sens 2 HR 45 ng/L (<=14)
--- NOTE | 2025-01-11 14:00 | ED.RN ---
recieved report after sivan ferreira. pt oscar mary, dr santiago aware. to discuss next steps with pt and family.
[2025-01-11 14:19] LABS: Mucous, Urine 0 SEEN /hpf (<or=2+)
--- NOTE | 2025-01-11 14:30 | ED.RN ---
dr santiago at bedside talking with famly and pt. obtained 2 blood culture from pt. dr santiago wants second cx from central line prior to antibiotics
[2025-01-11 15:18] LABS: Reflex Lactate? Y
[2025-01-11] MEDS: Ceftriaxone 2 GM in 0.9% Normal Saline (50mL MB+) 50 ML IV (15:25)
--- NOTE | 2025-01-11 15:43 | CM.ED ---
Social Work SW met with patient and patients daughter. Patient stated she has been having more trouble at home over the last two weeks, has had two falls and feels that she is less able to care for her ADLs. Patient and daughter stated they felt that a SNF stay would be beneficial to help patient regain her strength and balance. Patient stated she has been to TCU in the past but is also open to other options. No further needs identified at this time. Vidya Boyle, HABILITATION TRAINING SPECIALIST, LABOR LAW PROFESSOR
--- NOTE | 2025-01-11 15:45 | NURSING ---
Pt arrives to ICU. Able to transfer pt to bed before OR staff took pt to endo for EGD. No family present in ICU at time of transfer to endo.
[2025-01-11 15:46] LABS: Color, Urine Yellow (Yellow); Glucose, Dipstick Normal (Normal); Ketone-Dipstick Negative (Negative); Leukocyte Esterase-Dipstick 25 /ul (Negative); Nitrite-Dipstick Negative (Negative); Occult Blood-Urine 150 /ul (Negative); Protein-Dipstick 30 mg/dl (Negative); Specific Gravity, Urine 1.015 (1.002-1.030); Urine Bilirubin Dipstick Negative (Negative)
--- NOTE | 2025-01-11 16:26 | PCM.HP.STD ---
HPI - General General Date of Admission: 01/11/25 Date of Service: 01/11/25 Chief Complaint: Weakness, increased wrist pain, dark stools HPI Narrative DICK ARTIS, is a 89 F who presents to the emergency room at [facility] by squad after being brought in with complaints of increased pain in her left wrist due to a recent wrist fracture the patient sustained when she fell. She also complains of dark stools, she had a recent colonoscopy performed due to GI bleeding on 01/01/2025, this colonoscopy showed diverticulosis and small polyps which were removed with a hot snare and cold forceps. There was localized moderate inflammation in the rectosigmoid colon and this was felt to be secondary to ischemic colitis. However, patient's daughter states that she recently had a stool test that was positive for C. difficile, the patient is currently on p.o. vancomycin. Workup in the emergency room included a CBC which showed leukopenia with a 2.7 total white blood cell count, hemoglobin was 9.3, chemistry profile showed a creatinine of 3.03 and a BUN of 74. Patient's lactic acid was elevated at 3.2, AST was elevated at 60 and her calcium was low at 6.6. Troponins were 64 and 45 respectively, patient's chest x-ray showed subtle airspace disease in the right lung base indicating possible pneumonia. Urinalysis showed +3 bacteria with 5-10 WBCs and 0-5 RBCs. Leukocyte esterase was 25. Patient was noted to have low blood pressure with systolic readings in the 70s, blood cultures were obtained and the patient was given IV antibiotics for community-acquired pneumonia. I made the decision after admitting the patient to ICU to have a PICC line inserted in case she needed pressors, I have made the decision to change antibiotics to Zosyn. Patient was admitted to ICU for septic shock secondary to pneumonia and UTI, she will be maintained on her oral vancomycin for C. difficile. [facility] Medical History GI (gastrointestinal bleed) Rash Back pain Cancer Thyroid disease Ambulates with cane History of renal disease TIA (transient ischemic attack) Acute diverticulitis Wears glasses Wears dentures Arthritis Low iron Anemia High cholesterol Migraine headache Restless legs Difficulty chewing History of diverticulitis Heartburn Gastric reflux Former smoker On home oxygen therapy Shortness of breath on exertion Chronic cough History of edema History of echocardiogram History of stress test Cardiology follow-up encounter Hypertension Chronic hypoxic respiratory failure History of diabetes mellitus History of hypertension Diverticulitis History of chronic heart failure History of COPD COPD (chronic obstructive pulmonary disease) Anemia Chronic heart failure with preserved ejection fraction (HFpEF) Hyperlipidemia Right lumbar radiculopathy CKD (chronic kidney disease), stage III Hypertension Chronic kidney disease PAD (peripheral artery disease) Renal cyst History of TIA (transient ischemic attack) Bilateral carotid artery stenosis Claudication RLS (restless legs syndrome) Diverticulosis TIA (transient ischemic attack) Vertigo Leg edema Dyslipidemia Home Medications ?Medication ?Instructions ?Recorded ?Last Taken ?Type atorvastatin 40 mg tablet 40 mg PO QHS cholesterol 02/22/16 11/27/24 History clopidogrel 75 mg tablet 75 mg PO DAILY BLOOD THINNER 02/22/16 12/26/24 History albuterol sulfate 90 mcg/actuation 2 puff inhalation Q4H PRN 03/16/18 09/27/24 History aerosol inhaler shortness of breath or wheezing pramipexole 1.5 mg tablet 1.5 mg PO QHS restless leg syndrome 08/18/23 01/10/25 History polysaccharide iron complex 150 mg 150 mg PO DAILY supplement 30 days 10/12/23 12/26/24 Rx iron capsule (Ferrex) #30 caps acetaminophen 500 mg tablet 1,000 mg PO Q6H PRN pain 02/14/24 01/10/25 History arformoterol 15 mcg/2 mL solution 15 mcg inhalation BID breathing 02/14/24 01/01/25 History for nebulization spironolactone 25 mg tablet 25 mg PO DAILY diuretic 02/14/24 11/28/24 History cholecalciferol (vitamin D3) 125 125 mcg PO DAILY 30 days #30 caps 06/08/24 11/28/24 Rx mcg (5,000 unit) capsule furosemide 40 mg tablet 40 mg PO BID FLUID RETENTION 09/24/24 11/28/24 History pantoprazole 40 mg tablet,delayed 40 mg PO BID reflux 09/24/24 01/01/25 History release budesonide 0.5 mg/2 mL suspension 0.5 mg inhalation BID breathing 11/28/24 01/10/25 History for nebulization carvedilol 25 mg tablet 25 mg PO BID 11/28/24 01/01/25 History magnesium oxide 400 mg PO DAILY 11/28/24 11/28/24 History potassium chloride 20 mEq/15 mL 20 meq PO DAILY 11/28/24 11/28/24 History oral liquid duloxetine 60 mg capsule,delayed 60 mg PO DAILY 12/27/24 01/01/25 History release oxycodone 5 mg tablet 5 mg PO Q6H PRN pain 3 days #12 01/07/25 01/11/25 Rx tabs Allergy/AdvReac Type Severity Reaction Status Date / Time lisinopril Allergy edema Verified 01/11/25 10:14 aspirin AdvReac Upset Verified 01/11/25 10:14 Stomach Family History Mother Heart disease Surgical History History of thyroid surgery History of carotid angioplasty History of kidney stones History of basal cell carcinoma excision History of total hysterectomy Social History household members: none housing: house Smoking Status: Former smoker how long ago did patient quit smokin years ago alcohol intake: current alcohol intake frequency: holidays/special occasions only details: rare substance use type: does not use caffeine: Yes Type: coffee Number of servings: 1 ROS Constitutional Constitutional: Reports fatigue; Denies anorexia, change in weight, chills, fever(s), night sweats or weakness Eyes Eyes: Denies blurry vision, change in vision, discharge from eye(s) or eye pain Cardiovascular Cardiovascular: Denies chest pain, claudication, edema or palpitations Respiratory/Chest Respiratory/Chest: Denies cough, hemoptysis, shortness of breath at rest or shortness of breath with exertion Gastrointestinal Gastrointestinal: Denies abdominal pain, constipation, diarrhea, hematemesis, hematochezia, melena, nausea or vomiting Genitourinary Genitourinary: Denies dysuria, hematuria, urinary frequency, urinary hesitancy, urinary incontinence or urinary urgency Musculoskeletal Musculoskeletal: Reports joint pain and other Details: Uncontrolled pain due to recent left wrist fracture ; Denies back pain, joint stiffness, joint swelling, myalgias or neck pain Neurologic Neurologic: Denies abnormal gait, abnormal speech, dizziness, focal weakness, headache(s), loss of vision, numbness, other visual disturbances, paresthesias, syncope or tingling Psychiatric Psychiatric: Denies anxiety, cognitive impairment, depression, irritability, mood swings or suicidal ideation Endocrine Endocrinology: Denies change in body appearance, cold intolerance, excessive sweating, heat intolerance, polydipsia or polyuria Hematologic/Lymphatic Hematologic/Lymphatic: Denies none, anemia, easy bleeding, easy bruising or lymphadenopathy Allergic/Immunologic Allergic/Immunologic: Denies rhinitis, urticaria, eczemia or asthma Vital Signs Vital Signs Vital Signs: 01/11/25 10:16 01/11/25 10:19 01/11/25 10:51 Temperature 98.3 F Temperature Source Oral Pulse Rate 99 92 Respiratory Rate 18 20 H Respiratory Effort Normal Non-Labored Respiratory Pattern Normal Blood Pressure 83/44 L 83/50 L Blood Pressure Mean 57 61 Pulse Ox 95 99 Oxygen Delivery Method Nasal Cannula Nasal Cannula Oxygen Flow Rate (L/min) 2 2 01/11/25 11:20 01/11/25 11:29 01/11/25 14:00 Temperature Temperature Source Pulse Rate 87 92 Respiratory Rate 18 18 Respiratory Effort Respiratory Pattern Blood Pressure 90/43 L 82/69 L Blood Pressure Mean 58 73 Pulse Ox 98 97 98 Oxygen Delivery Method Nasal Cannula Nasal Cannula Room Air Oxygen Flow Rate (L/min) 2 2 01/11/25 14:15 01/11/25 14:45 01/11/25 15:36 Temperature 98.9 F Temperature Source Pulse Rate 90 91 94 Respiratory Rate 20 H 20 H 32 H Respiratory Effort Respiratory Pattern Blood Pressure 80/52 L 102/48 L 94/60 Blood Pressure Mean 61 66 71 Pulse Ox 98 98 95 Oxygen Delivery Method Oxygen Flow Rate (L/min) Weight Weight: 64.8 kg Body Mass Index (BMI) 26.1 Physical Exam Const alert, oriented x3, no apparent distress and healthy appearing Constitutional Narrative: Patient has extensive ecchymosis over her facial area secondary to recent fall General Appearance: cooperative, well kempt and well developed Orientation / Consciousness: awake, oriented to person, oriented to place and oriented to time HEENT normocephalic and moist oral mucous membranes HEENT Narrative: Ecchymosis in the facial area and periorbital area Eyes PERRL, EOMs intact bilaterally and conjunctivae normal Neck supple, no JVD, thyroid normal and no carotid bruits General: trachea midline Resp normal respiratory effort, no retractions, no use of accessory muscles and clear to auscultation bilaterally Auscultation: Negative for rales, rhonchi or wheezes Cardio regular rate, regular rhythm, S1 normal heart sound, S2 normal heart sound, no murmurs, no rub and no gallops GI normal to inspection, nondistended, normoactive bowel sounds, soft to palpation, non-tender and non-distended Extremity no clubbing, cyanosis or edema Extremity Narrative: There is a cast over the patient's left wrist and forearm area Skin no rashes or lesions noted General Skin Exam: no breakdown Neuro oriented x3, CN's II-XII intact bilaterally, moves all extremities, no focal motor deficits and no sensory deficits noted Sensorium / Orientation: awake and alert Speech: speech normal Psych affect normal Results Lab / Micro Data 01/11/25 11:05 01/11/25 11:05 Labs: Laboratory Results - last 24 hr 01/11/25 11:05: WBC 2.7 L, RBC 2.93 L, Hgb 9.3 L, Hct 29.0 L, MCV 99.0, MCH 31.7, MCHC 32.1, RDW Std Deviation 52.8 H, RDW Coeff of Ha 14.5, Plt Count 143 L, MPV 10.9, Neut % (Auto) Not Reportable, Absolute Neuts (auto) 1.8 L, Absolute Lymphs (auto) 0.56 L, Total Counted 100, Neutrophils % (Manual) 42 L, Band Neutrophils % 24 H, Lymphocytes % (Manual) 21, Monocytes % (Manual) 5, Eosinophils % (Manual) 1, Basophils % (Manual) 1, Metamyelocytes % 5 H, Myelocytes % 1 H, Diff Path Review May foll, Platelet Estimate SLT DEC, Polychromasia 1+, Sodium 135, Potassium 4.1, Chloride 96 L, Carbon Dioxide 21.3, Anion Gap 18 H, BUN 74 H, Creatinine 3.03 H, Estim Creat Clear Calc 11.66 L, Est GFR (MDRD) Non-Af 14 L, BUN/Creatinine Ratio 24.3 H, Glucose 88, Lactic Acid 3.2 H*, Calcium 6.6 L, Total Bilirubin 0.49, AST 60 H, ALT 17, Alkaline Phosphatase 55, Troponin T High Sens 64 H*, Total Protein 5.4 L, Albumin 2.6 L, Globulin 2.8, Albumin/Globulin Ratio 0.9, Blood Type A NEGATIVE, Antibody Screen NEGATIVE 01/11/25 13:15: Troponin T Hi Sens 2 Hr 45 H 01/11/25 14:15: Urine Color Yellow, Urine Clarity Cloudy, Urine pH 5.0, Ur Specific [place] 1.015, Urine Protein 30 H, Urine Glucose (UA) Normal, Urine Ketones Negative, Urine Occult Blood 150 H, Urine Nitrite Negative, Urine Bilirubin Negative, Urine Urobilinogen Normal, Ur Leukocyte Esterase 25 H Micro: Microbiology 01/11/25 11:05 Stool Stool Occult Blood (ROYAL) - Final Occult Blood Positive Rhythm Strip Rhythm Strip: Sinus Rhythm Rate: 90 Ectopy: None Imaging Radiology Impression Chest X-Ray 01/11/25 13:20 IMPRESSION: Subtle airspace disease is seen in the right lung base, with differential diagnosis including Atelectasis and Pneumonitis. No pleural effusion or pneumothorax is seen. The cardiomediastinal silhouette is stable, without evidence of cardiomegaly. A tortuous aorta is again noted. No interval osseous change is identified. Reading Location: [facility] Assessment & Plan Assessment/Plan (1) Sepsis: PLAN: Plan 1. Septic shock secondary to pneumonia and acute cystitis-patient was admitted to ICU, Zosyn will be administered-patient did have a dose of Rocephin and Zithromax in the emergency room-labs will be monitored, patient will have a PICC line inserted for pressors if necessary, patient has received at least 3 L of fluid during her stay in the emergency room #2 community-acquired pneumonia-again patient will be placed on Zosyn #3 acute cystitis-patient is on Zosyn #4 C. difficile colitis-patient continues to have diarrhea she will be maintained on oral vancomycin #5 acute kidney injury-patient will be given fluids, labs will be monitored #6 pain secondary to recent left wrist fracture-patient will be given analgesics while in the hospital #7 anemia-patient's hemoglobin on 12/18/2024 was 10.9, her hemoglobin today in the emergency room was 9.3. I do not have any evidence of current bleeding, CBC will be repeated this evening and tomorrow morning. #8 demand ischemia-patient has no symptoms of chest discomfort, I think the demand ischemia secondary to her septic shock. Total clinical time spent by myself addressing the patient's medical issues, reviewing all of her data, and collaborating with patient's care team: 75 minutes Charges/Coding Visit Charges Inpatient E&M: 47492 Init Hosp L3
[2025-01-11] MEDS: 0.9% Normal Saline (1000mL) 1,000 ML 15 ML IV (16:28)
[2025-01-11 17:07] LABS: Red Blood Cells-Urine 0-5 SEEN /hpf (0-5); Squamous Epithelial Cells - UA 5-10 SEEN /hpf (5-10)
[2025-01-11] MEDS: Azithromycin 500 MG in 0.9% Normal Saline (250mL Bag) 250 ML 255 MG IV (17:22)
[2025-01-11] MEDS: 0.9% Normal Saline (1000mL) 1,000 ML 100 ML IV (17:27)
[2025-01-11] MEDS: Vancomycin 125 MG/5 ML Susp PO.SYRINGE PO (17:28)
--- NOTE | 2025-01-11 17:43 | NURSING ---
Unable to obtain repeat labs at this time d/t poor IV access/awaiting PICC placement.
--- NOTE | 2025-01-11 18:36 | OP.CCLET_ITS ---
Patient Name: Chanel Rousseau Procedure Date: 01/11/2025 5:53 PM Date of : 1935 Age: 89 THIS EXAM WAS SENT IN ERROR THIS EXAM WAS SENT IN ERROR
--- NOTE | 2025-01-11 18:36 | OP.EGD_ITS ---
Patient Name: Chanel Rousseau Procedure Date: 01/11/2025 5:53 PM Date of : 1935 Age: 89 THIS EXAM WAS SENT IN ERROR
[2025-01-11] MEDS: Norepinephrine 8 MG in 0.9% Normal Saline (250mL Bag) 242 ML 9.4 MG CONT INF (19:35)
[2025-01-11 21:05] LABS: Hematocrit 29.0 % (37-47); Hemoglobin 9.3 g/dL (12.0-15.0); Mean Corp Hgb Conc 32.1 g/dL (32-36); Mean Corpuscular Volume 99.3 fL (81-99); Mean Platelet Vol. 11.2 fl (6.2-12.0); POSITIVE COUNT YES; POSITIVE DIFFERENTIAL YES; POSITIVE MORPHOLOGY YES; Platelet Count 154 K/mm3 (150-450); RBC Distribution Width CV 14.4 % (11.6-14.6); RBC Distribution Width SD 52.4 fl (35.1-43.9); Red Blood Count 2.92 M/mm3 (4.2-5.4); White Blood Count 5.0 K/mm3 (4.4-11.0)
[2025-01-11] MEDS: Piperacil/Tazobactam 3.375 GM in 0.9% Normal Saline (50mL MB+) 50 ML IV (21:29)
[2025-01-11] MEDS: 0.9% Saline Lock 10 ML Syringe IV ×2 (21:30→22:05)
--- NOTE | 2025-01-11 21:32 | CT_ITS ---
PROCEDURE: CT CHEST, ABD, PELVIS WO CONT 01/12/2025 REASON FOR EXAM: ABNORMAL CXR, GI BLEED TECHNIQUE: Chest, abdomen and pelvis CT without intravenous contrast. Coronal and Sagittal reconstruction series were provided. One or more dose reduction techniques were used (e.g., Automated exposure control, adjustment of the mA and/or kV according to patient size, use of iterative reconstruction technique. RADIATION DOSE SUMMARY: CTDlvol: 25 mGy DLP: 1065 mGycm COMPARISON: Chest CT 10/02/2023, abdominopelvic CT 12/17/2024 FINDINGS: Unremarkable base of neck and axilla. Thoracic spine degeneration. Small hiatal hernia. Normal heart size. No acute vascular pathology on noncontrast scanning. Right-sided PICC line tip in right atrium. No acute chest wall findings. Compression deformities T9 through T11, with no specific evidence of acuity. Correlate with any symptoms. There is bronchial wall thickening. There are small bilateral effusions, adjacent airspace disease favoring atelectasis. Right middle lobe and left central lung airspace disease also favoring atelectasis. Mild emphysema. Possible gallbladder sludge. Unremarkable liver, pancreas, spleen. There are bilateral renal calcifications measuring up to 2 mm. Right kidney is abnormal. There are areas of scarring and atrophy. There are multiple simple cysts. There is a possible renal mass, series 3 image 46, measuring approximately 4.3 x 5 cm. Previous, enhanced CT suggested that this is a hyperdense cyst. Recommend ultrasound. No hydronephrosis or ureteral stone. Normal bladder. Status post hysterectomy. No retroperitoneal or pelvic adenopathy. No free air. Small ascites. Nonobstructed bowel. No signs of appendicitis. There is diffusely abnormal large bowel with wall thickening, without pneumatosis. Lumbar spine scoliosis and degeneration. No acute abdominal wall findings. Mild old L1 compression deformity. CT/CT Chest, Abd, Pelvis WO Cont IMPRESSION: Diffuse colitis favoring infectious colitis. Inflammatory bowel disease or isc hemic colitis not completely excluded. Advise correlation. Small ascites. Bilateral airspace disease favoring atelectasis. Reading Location: [place] [id number]
--- NOTE | 2025-01-11 21:34 | PCMCONS.TICU ---
HPI Consult Data Date of Consult: 01/11/25 HPI Narrative HPI Narrative: Ms. Rousseau is an 89 year-old female with HTN, HLD, DM2, chronic hypoxemic respiratory failure, chart diagnoses of CHF and COPD, CKD III, hyopthyroidism, prior TIA on ASA + Plavix, chronic anemia, PAD, recent diagnosis of Cdiff (12/2024) and history of ischemic colitis and colonic polyps (Colonoscopy 01/01/2025) who presents with shock and a possible GI Bleed. She presented to [facility] due to left wrist pain which is secondary to a fracture from a ground level fall this past week. Upon arrival, she was found to be hypotensive unresponsive to fluids in the setting of laboratory data that was remarkable for a UTI, WBC 2.7, lactate 3.2, Hgb 9.3, Cr 3.03, HCO3 21, and troponin in the 60s. Chest imaging was suspicious for a possible right sided pneumonia. There are conflicting reports of possible recent dark, tarry stools, but in talking to the patient, she states that she has not had any melena in over 4 days. On my examination, she is in a lot of pain due to her wrist, and she currently denies fevers, chills, nausea, vomiting, diarrhea, syncope, presyncope, visual changes, orthopnea, PND, odynophagia, dysphagia, chest pain, shortness of breath, belly pain, dysuria, hematuria, melena, hematochezia, or neurological changes. All other systems were reviewed and were negative. [facility] Medical History GI (gastrointestinal bleed) Rash Back pain Cancer Thyroid disease Ambulates with cane History of renal disease TIA (transient ischemic attack) Acute diverticulitis Wears glasses Wears dentures Arthritis Low iron Anemia High cholesterol Migraine headache Restless legs Difficulty chewing History of diverticulitis Heartburn Gastric reflux Former smoker On home oxygen therapy Shortness of breath on exertion Chronic cough History of edema History of echocardiogram History of stress test Cardiology follow-up encounter Hypertension Chronic hypoxic respiratory failure History of diabetes mellitus History of hypertension Diverticulitis History of chronic heart failure History of COPD COPD (chronic obstructive pulmonary disease) Anemia Chronic heart failure with preserved ejection fraction (HFpEF) Hyperlipidemia Right lumbar radiculopathy CKD (chronic kidney disease), stage III Hypertension Chronic kidney disease PAD (peripheral artery disease) Renal cyst History of TIA (transient ischemic attack) Bilateral carotid artery stenosis Claudication RLS (restless legs syndrome) Diverticulosis TIA (transient ischemic attack) Vertigo Leg edema Dyslipidemia Home Medications ?Medication ?Instructions ?Recorded ?Last Taken ?Type atorvastatin 40 mg tablet 40 mg PO QHS cholesterol 02/22/16 11/27/24 History clopidogrel 75 mg tablet 75 mg PO DAILY BLOOD THINNER 02/22/16 12/26/24 History albuterol sulfate 90 mcg/actuation 2 puff inhalation Q4H PRN 03/16/18 09/27/24 History aerosol inhaler shortness of breath or wheezing pramipexole 1.5 mg tablet 1.5 mg PO QHS restless leg syndrome 08/18/23 01/10/25 History polysaccharide iron complex 150 mg 150 mg PO DAILY supplement 30 days 10/12/23 12/26/24 Rx iron capsule (Ferrex) #30 caps acetaminophen 500 mg tablet 1,000 mg PO Q6H PRN pain 02/14/24 01/10/25 History arformoterol 15 mcg/2 mL solution 15 mcg inhalation BID breathing 02/14/24 01/01/25 History for nebulization spironolactone 25 mg tablet 25 mg PO DAILY diuretic 02/14/24 11/28/24 History cholecalciferol (vitamin D3) 125 125 mcg PO DAILY 30 days #30 caps 06/08/24 11/28/24 Rx mcg (5,000 unit) capsule furosemide 40 mg tablet 40 mg PO BID FLUID RETENTION 09/24/24 11/28/24 History pantoprazole 40 mg tablet,delayed 40 mg PO BID reflux 09/24/24 01/01/25 History release budesonide 0.5 mg/2 mL suspension 0.5 mg inhalation BID breathing 11/28/24 01/10/25 History for nebulization carvedilol 25 mg tablet 25 mg PO BID 11/28/24 01/01/25 History magnesium oxide 400 mg PO DAILY 11/28/24 11/28/24 History potassium chloride 20 mEq/15 mL 20 meq PO DAILY 11/28/24 11/28/24 History oral liquid duloxetine 60 mg capsule,delayed 60 mg PO DAILY 12/27/24 01/01/25 History release oxycodone 5 mg tablet 5 mg PO Q6H PRN pain 3 days #12 01/07/25 01/11/25 Rx tabs Allergy/AdvReac Type Severity Reaction Status Date / Time lisinopril Allergy edema Verified 01/11/25 10:14 aspirin AdvReac Upset Verified 01/11/25 10:14 Stomach Family History Mother Heart disease Surgical History History of thyroid surgery History of carotid angioplasty History of kidney stones History of basal cell carcinoma excision History of total hysterectomy Social History household members: none housing: house Smoking Status: Former smoker how long ago did patient quit smokin years ago alcohol intake: current alcohol intake frequency: holidays/special occasions only details: rare substance use type: does not use caffeine: Yes Type: coffee Number of servings: 1 ROS ROS Narrative as per HPI Objective Data Objective Data Vital Signs: Vital Signs Last response Temperature 36.6 C 01/11/25 19:35 Temperature Source Temporal 01/11/25 19:35 Pulse Rate 91 01/11/25 20:00 Respiratory Rate 33 H 01/11/25 20:00 Respiratory Effort Normal, Non-Labored 01/11/25 17:46 Respiratory Depth Normal 01/11/25 17:46 Respiratory Pattern Normal 01/11/25 19:06 Blood Pressure 117/43 L 01/11/25 20:00 Blood Pressure Mean 67 01/11/25 20:00 Blood Pressure Source Monitor 01/11/25 20:00 Blood Pressure Position Supine 01/11/25 20:00 Blood Pressure Location Left Arm 01/11/25 20:00 Pulse Ox 98 01/11/25 20:00 Oxygen Delivery Method Nasal Cannula 01/11/25 20:00 Oxygen Flow Rate (L/min) 2 01/11/25 20:00 I&O: I&O Last 24 Hours 01/10/25 01/11/25 01/11/25 23:59 11:59 23:59 Intake Total 1300 / 3608.92 2308.92 / 3608.92 Balance 1300 / 3608.92 2308.92 / 3608.92 I&O: Total Stay 01/11/25 10:13 thru 01/11/25 20:00 Intake Total 3608.92 Balance 3608.92 Current Meds Ordered / Administered: Current meds ordered / Administered Generic Name Dose Route Start Last Admin Trade Name Betty PRN Reason Stop Dose Admin Acetaminophen 1,000 mg 01/11/25 16:03 01/11/25 20:45 Acetaminophen 500 Mg Tablet PO 1,000 mg Q6H PRN Administration Pain Score 1-10 Albuterol/Ipratropium 3 ml 01/11/25 16:03 01/11/25 19:04 Ipratropium/Albuterol Sulfate 3 Ml Ampul.Neb INHALATION 3 ml Q6H.RT MUSA Administration Albuterol/Ipratropium 3 ml 01/11/25 21:45 Ipratropium/Albuterol Sulfate 3 Ml Ampul.Neb INHALATION Q4H.RT MUSA Atorvastatin Calcium 40 mg 01/11/25 22:00 01/11/25 21:31 Atorvastatin Calcium 40 Mg Tablet PO Not Given QHS MUSA Budesonide 0.5 mg 01/11/25 22:00 Budesonide Respules 0.5 Mg/2 Ml Ampul.Neb. INHALATION BID MUSA Cholecalciferol 125 mcg 01/12/25 10:00 Cholecalciferol (Vit D3) 125 Mcg Capsule (5,000 Units) PO DAILY MUSA Clopidogrel Bisulfate 75 mg 01/12/25 10:00 Clopidogrel Bisulfate 75 Mg Tablet PO DAILY MUSA Duloxetine HCl 60 mg 01/12/25 10:00 Duloxetine Hcl 60 Mg Capsule PO DAILY MUSA Heparin Sodium (Porcine) 5,000 unit 01/11/25 22:00 01/11/25 21:30 Heparin Injection (Vial) 5,000 Unit/Ml Vial SC Not Given Q12 MUSA Sodium Chloride 1,000 mls @ 100 mls/hr 01/11/25 16:03 01/11/25 17:27 IV 100 mls/hr .Q10H MUSA Administration Piperacillin Sod/Tazobactam 50 mls @ 12.5 mls/hr 01/11/25 22:00 01/11/25 21:29 Sod 3.375 gm/ Sodium Chloride IV 12.5 mls/hr Q12 MUSA Administration Sodium Chloride 1,000 mls @ 15 mls/hr 01/11/25 16:30 01/11/25 16:28 IV 15 mls/hr .Q48H MUAS Administration Norepinephrine Bitartrate 8 mg 250 mls @ 9.375 mls/hr 01/11/25 19:15 01/11/25 20:00 / Sodium Chloride CONT INF 5 mcg/min .[id number] MUSA 9.4 mls/hr Titration Protocol 5 MCG/MIN Azithromycin 500 mg/ Sodium 255 mls @ 255 mls/hr 01/11/25 21:30 Chloride IV Q24 MUSA Morphine Sulfate 2 mg 01/11/25 21:26 Morphine 2 Mg/Ml Syringe IV Q4H PRN PRN Pain Score 6-10 Ondansetron HCl 4 mg 01/11/25 16:03 Ondansetron 4 Mg/2 Ml Vial IV Q8H PRN PRN NAUSEA/VOMITING Oxycodone HCl 5 mg 01/11/25 16:03 01/11/25 20:45 Oxycodone 5 Mg Tablet PO 5 mg Q6H PRN Administration Pain Score 1-10 Pantoprazole Sodium 40 mg 01/11/25 22:00 01/11/25 21:30 Pantoprazole Sodium 40 Mg Tablet PO 40 mg BID MUSA Administration Polysaccharide Iron Complex 150 mg 01/12/25 10:00 Iron Polysaccharide Complex 150 Mg Capsule PO DAILY MUSA Pramipexole Dihydrochloride 1.5 mg 01/11/25 22:00 01/11/25 21:30 Pramipexole Di-Hcl 0.5 Mg Tablet PO 1.5 mg QHS MUSA Administration Sodium Chloride 10 - 40 ml 01/11/25 16:11 01/11/25 21:30 0.9% Saline Lock 10 Ml Syringe IV 20 ml UD PRN Administration SALINE FLUSH Vancomycin HCl 125 mg 01/11/25 18:00 01/11/25 17:28 Vancomycin 125 Mg/5 Ml Susp Po.Syringe PO 125 mg Q6 MUSA Administration Physical Exam Narrative GENERAL: NAD; A/O x 4; MILD DISTRESS FROM PAIN HEENT: PERRLA; EOMI; anicteric; ECCHYMOSES AROUND EYES NECK: soft, supple, no AARON; no JVP; no TM CV: RRR; -m/r/g RESP: CTAB; no wheezes, crackles or rhonchi ABD: soft, NT, ND, ABS x 4 EXT: WWP; no C/C/E NEURO: 5/5 Motor and Sensory; CN II - XII Intact Lab / Micro Data 01/11/25 11:05 01/11/25 11:05 Labs: Laboratory Results - last 24 hr 01/11/25 11:05: WBC 2.7 L, RBC 2.93 L, Hgb 9.3 L, Hct 29.0 L, MCV 99.0, MCH 31.7, MCHC 32.1, RDW Std Deviation 52.8 H, RDW Coeff of Ha 14.5, Plt Count 143 L, MPV 10.9, Neut % (Auto) Not Reportable, Absolute Neuts (auto) 1.8 L, Absolute Lymphs (auto) 0.56 L, Total Counted 100, Neutrophils % (Manual) 42 L, Band Neutrophils % 24 H, Lymphocytes % (Manual) 21, Monocytes % (Manual) 5, Eosinophils % (Manual) 1, Basophils % (Manual) 1, Metamyelocytes % 5 H, Myelocytes % 1 H, Diff Path Review November, Platelet Estimate SLT DEC, Polychromasia 1+, Sodium 135, Potassium 4.1, Chloride 96 L, Carbon Dioxide 21.3, Anion Gap 18 H, BUN 74 H, Creatinine 3.03 H, Estim Creat Clear Calc 11.66 L, Est GFR (MDRD) Non-Af 14 L, BUN/Creatinine Ratio 24.3 H, Glucose 88, Lactic Acid 3.2 H*, Calcium 6.6 L, Total Bilirubin 0.49, AST 60 H, ALT 17, Alkaline Phosphatase 55, Troponin T High Sens 64 H*, Total Protein 5.4 L, Albumin 2.6 L, Globulin 2.8, Albumin/Globulin Ratio 0.9, Blood Type A NEGATIVE, Antibody Screen NEGATIVE 01/11/25 13:15: Troponin T Hi Sens 2 Hr 45 H 01/11/25 14:15: Urine Color Yellow, Urine Clarity Cloudy, Urine pH 5.0, Ur Specific [place] 1.015, Urine Protein 30 H, Urine Glucose (UA) Normal, Urine Ketones Negative, Urine Occult Blood 150 H, Urine Nitrite Negative, Urine Bilirubin Negative, Urine Urobilinogen Normal, Ur Leukocyte Esterase 25 H, Urine RBC 0-5 SEEN, Urine WBC 5-10 SEEN, Ur Squamous Epith Cells 5-10 SEEN, Urine Bacteria 3+, Urine Mucus 0 SEEN 01/11/25 16:15: POC Glucose 82 Micro: Microbiology 01/11/25 11:05 Stool Stool Occult Blood (ROYAL) - Final Occult Blood Positive Rhythm Strip Rhythm Strip: Sinus Rhythm Rate: 90 Ectopy: None Imaging Radiology Impression Chest X-Ray 01/11/25 13:20 IMPRESSION: Subtle airspace disease is seen in the right lung base, with differential diagnosis including Atelectasis and Pneumonitis. No pleural effusion or pneumothorax is seen. The cardiomediastinal silhouette is stable, without evidence of cardiomegaly. A tortuous aorta is again noted. No interval osseous change is identified. Reading Location: [place] [id number] Assessment and Plan . Assessment and plan: LINES R-PICC 01/11 DRIPS Levpohed ANTIBIOTICS AND STEROIDS PO Vancomycin Zosyn 01/11 Azithromycin 01/11 ASSESSMENT 1. Shock 2. Possible Acute GI Bleed 3. Possible Pneumonia 4. Urinary Tract Infection 5. Acute on Chronic Kidney Disease 6. Acute on Chronic Anemia 7. Leukopenia 8. Elevated Lactate 9. Non-Anion Gap Metabolic Acidosis 10. Non-ST Elevation Myocardial Infarction, Type I vs. II 11. Clostridium difficile Colitis 12. Colonic Polyps 13. Prior Ischemic Coliitis 14. Hypertension 15. Hyperlipidemia 16. Type II Diabetes Mellitus 17. Prior TIA on Plavix + ASA 18. Chart Diagnosis of Congestive Heart Failure 19. Chart Diagnosis of COPD PLAN 1. Fluids + Vasopressors to maintain MAP 65 2. Broad Abx; BCx and UCx ordered and pending; continue PO Vanco 3. Flu/COVID/RSV and MRSA swabs pending 4. Repeat CBC pending; I am not convinces she is having an active GIB - none since arrival and none in 4 days as per patient; will transfuse if active bleeding occurs or Hgb < 7 5. Repeat Troponin; Echo in AM 6. Repeat Lactate 7. Trend Cr - baseline 1.4-1.6 8. Discontinue SQ Heparin 9. Duonebs; lung exam without wheezing; no need for steroids 10. CT Chest non-contrasted 11. CT A/P non-contrasted 12. Analgesia for wrist pain PPI Critical Care Time: 60 Minutes The entirety of this encounter was done via telemedicine with audio and visual. Consent was obtained for a telemedicine encounter. Sam Trotter MD Pulmonary and Critical Care Medicine
--- NOTE | 2025-01-11 22:26 | ECHOD_ITS ---
Reason For Study Reason For Study: CHF Procedure This was a 2D Doppler, Color Flow transthoracic echocardiogram. Exam performed portable in ICU/CCU. Left Ventricle Normal LV size. Mild concentric left ventricular hypertrophy. Stage 1 diastolic dysfunction. Right Ventricle Normal right ventricle. Atria The left and right atria are normal. Mitral Valve Trivial mitral valve insufficiency. Tricuspid Valve Trivial tricuspid valve insufficiency. Unable to estimate RV systolic pressure due to insufficient tricuspid regurgitant envelope. Aortic Valve Trisinus/trileaflet aortic valve. Trivial aortic valve insufficiency. Pulmonic Valve Trivial pulmonic valve insufficiency. Great Vessels Normal sized aortic root. Pericardium/Pleural No pericardial effusion. MMode/2D Measurements & Calculations LVIDd: 4.0 cm IVSd: 1.2 cm Ao root diam: 2.9 cm LVIDs: 2.7 cm LVPWd: 0.91 cm LA dimension: 3.6 cm RVDd: 3.3 cm FS: 33.2 % LAV(MOD-bp): 35.8 ml LVAd ap4: 21.7 cm2 SV(MOD-sp4): 28.8 ml LAV(MOD-bp) Indexed: 21.4 ml/m2 LVLd ap4: 6.9 cm SI(MOD-sp4): 17.3 ml/m2 LAV(MOD-sp2): 37.7 ml EDV(MOD-sp4): 55.0 ml LAV(MOD-sp4): 31.8 ml EDV(sp4-el): 57.4 ml LVAs ap4: 13.9 cm2 LVLs ap4: 6.5 cm ESV(MOD-sp4): 26.2 ml ESV(sp4-el): 25.3 ml EF(MOD-sp4): 52.4 % EF(sp4-el): 56.0 % SV(sp4-el): 32.1 ml LA A4 area: 14.0 cm2 LA dimension(2D): 3.8 cm RA A4 area: 12.7 cm2 TAPSE: 2.3 cm Time Measurements MV dec time: 0.19 sec Doppler Measurements & Calculations MV E max pantera: 120.0 cm/sec Lat Peak E' Pantera: 10.9 cm/sec Med Peak E' Pantera: 6.9 cm/sec MV A max pantera: 136.9 cm/sec E/E' lat: 11.0 E/E' med: 17.4 MV E/A: 0.88 MV V2 max: 161.1 cm/sec MV P1/2t max pantera: 141.2 cm/sec Ao V2 max: 105.7 cm/sec MV max P.4 mmHg MV P1/2t: 65.1 msec Ao max P.5 mmHg MV V2 mean: 91.2 cm/sec Ao V2 mean: 74.5 cm/sec MV mean P.0 mmHg MV dec slope: 635.6 cm/sec2 Ao mean P.5 mmHg MV V2 VTI: 37.3 cm MVA(P1/2t): 3.4 cm2 Ao V2 VTI: 25.6 cm LV V1 max: 68.8 cm/sec TR max pantera: 160.0 cm/sec LV V1 max P.9 mmHg TR max P.2 mmHg ECHO/Echo Complete Interpretation Summary Mild concentric left ventricular hypertrophy. Stage 1 diastolic dysfunction. Ordering Physician: Sam Trotter Referring Physician: Chuck Reynolds Performed By: Antoine Fonseca RCS
[2025-01-11 23:00] LABS: Differential Indicated MANUAL DIFF
[2025-01-11 23:06] LABS: Neutrophil-Band 29 % (0-5); Neutrophil-Segmented 50 % (47-70); Total Cells Counted 100 (MANUAL DIFF)
[2025-01-11 23:13] LABS: Troponin T High Sensitivity 338 ng/L (<=14)
[2025-01-12] VITALS (41 sets, daily range): BP systolic 95–136; BP diastolic 39–97; PULSE 77–96; RESP 14–32; TEMP 36.7–37.4; O2SAT 93–99; BMI 26.9
[2025-01-12] MEDS: Vancomycin 125 MG/5 ML Susp PO.SYRINGE PO ×4 (01:27→16:55)
[2025-01-12] MEDS: 0.9% Normal Saline (1000mL) 1,000 ML 100 ML IV ×3 (02:11→21:43)
[2025-01-12 02:34] LABS: Reflex Lactate? Y
[2025-01-12] MEDS: 0.9% Saline Lock 10 ML Syringe IV (06:31)
[2025-01-12 06:43] LABS: Hematocrit 30.2 % (37-47); Hemoglobin 9.7 g/dL (12.0-15.0); Immature Granulocytes Count 0.160 X10^3/uL (0.0-0.0); Mean Corp Hgb Conc 32.1 g/dL (32-36); Mean Corpuscular Volume 98.7 fL (81-99); Mean Platelet Vol. 11.0 fl (6.2-12.0); NRBC Flagged by Analyzer 0.3 % (0-5); POSITIVE DIFFERENTIAL YES; POSITIVE MORPHOLOGY YES; Platelet Count 159 K/mm3 (150-450); RBC Distribution Width CV 14.5 % (11.6-14.6); RBC Distribution Width SD 52.8 fl (35.1-43.9); Red Blood Count 3.06 M/mm3 (4.2-5.4); White Blood Count 9.2 K/mm3 (4.4-11.0)
[2025-01-12 07:18] LABS: Anion Gap 15 (5-15); BUN 55 mg/dL (4-19); BUN/Creat Ratio 29.1 RATIO (10-20); Calcium,Total 6.4 mg/dL (7.6-11.0); Carbon Dioxide 20.7 mmol/L (21.0-32.0); Chloride 105 mmol/L (98-108); Estimated Creatinine Clearance 18.83 ml/min (50-250); Glucose 104 mg/dL (70-99); Potassium 3.6 mmol/L (3.3-5.1)
[2025-01-12 07:19] LABS: Differential Indicated SCAN CRITERIA MET
[2025-01-12] MEDS: Budesonide Respules 0.5 MG/2 ML AMPUL.NEB. INHALATION ×2 (07:37→19:45)
--- OUTSIDE RECORDS SUMMARY | 2025-01-12 08:41 | XMS RPT_ITS | CCD ---
Author Organization [facility] Care Team Providers Care Level Vial Grinder Name Role Phone Jason Jerez MD Unavailable Mady Dunn MD Primary Care Provider Alison SIDDIQI, Kolton Bhat Unavailable UnavailAngélica Tavarez DO Unavailable Luis, Rolly Dominguez Unavailable Erin Robledo MD Unavailable Mady Dunn MD Primary Care Provider Alison SIDDIQI, Kolton Bhat Unavailable UnavailAngélica Tavarez DO Unavailable Moodispaw, Rolly F Unavailable Erin Robledo MD Unavailable Rolly Smith Unavailable PROVIDER, UNKNOWN Referring Unavailable MADY DUNN Primary Care Unavailable Kolton SIDDIQI, Alison Bhat Unavailable UnavailMady Clinton MD Primary Care Provider Kolton SIDDIQI, Alison Bhat Unavailable UnavailAngélica Tavarez DO Unavailable Moodispastephenie, Rolly F Unavailable Erin Robledo MD Unavailable Dr. Mady Dunn Primary Care Provider Dr. Mady Dunn Referring Provider Dr. Rolly Smith Attending Provider Dr. Rolly Smith Referring Provider Dr. Rolly Smith Other Provider Dr. Mady Dunn Primary Care Provider Dr. Mady Dunn Referring Provider Lana AUDIO SPECIALIST, AUDIO SPECIALIST-Lei Kern Attending Provider Kolton SIDDIQI, Alison Bhat Unavailable Arpan Smith MD, Rolly Dominguez Unavailable Dr. Mady Dunn Primary Care Provider Dr. Herrera Thompson Emergency Provider Korkyra, Dr. Anya Pierson Admit Provider Korkyra, Dr. Anya Pierson Attending Provider Korkyra, Dr. Anya Pierson Other Provider Arian, Dr. Zarco Attending Provider Arian, Dr. Zarco Referring Provider Danielito, Dr. Martinez Attending Provider Danielito, Dr. Martinez Other Provider Dr. Mady Dunn Referring Provider Dr. Juvenal Thompson Attending Provider Dr. Matthew Schuster Emergency Provider Dr. Yenny Abdul Attending Provider Dr. Yenny Abdul Admit Provider Dr. Yenny Abdul Other Provider Dr. Herrera Bauman Attending Provider Dr. Herrera Bauman Other Provider Dr. Herrera Goodrich Attending Provider Dr. Mady Dunn Primary Care Provider Dr. Herrera Thompson Emergency Provider Lokesh, Dr. Anya Pierson Admit Provider Korkyra, Dr. Anya Pierson Attending Provider Korkyra, Dr. Anya Pierson Other Provider Arian, Dr. Zarco Attending Provider Arian, Dr. Zarco Referring Provider Dr. Juan Esteves Attending Provider Danielito, Dr. Martinez Other Provider Dr. Mady Dunn Referring Provider Dr. Juvenal Thompson Attending Provider Dr. Matthew Schuster Emergency Provider 1([facility])[phone] Dr. Yenny Abdul Attending Provider Dr. Yenny Abdul Admit Provider Dr. Yenny Abdul Other Provider Dr. Herrera Bauman Attending Provider Dr. Herrera Bauman Other Provider Dr. Herrera Goodrich Attending Provider Dr. Juvenal Thompson Referring Provider Dr. Noble Reynolds Admit Provider Dr. Noble Reynolds Attending Provider Dr. Noble Reynolds Other Provider Dr. Juvenal Thompson Other Provider Dr. Matt Mcclure Attending Provider Dr. Alisia Lawrence Other Provider Dangelo, Dr. Richy Olmos Admit Provider Dangelo, Dr. Richy Olmos Other Provider Friend, Dr. Valerio Attending Provider Addie, Dr. Valerio Other Provider Dr. Mady Dunn Primary Care Provider Dr. Herrera Thompson Emergency Provider Lokesh, Dr. Anya Pierson Admit Provider Lokesh, Dr. Anya Pierson Attending Provider KorDr. Anya rae Other Provider Arian, Dr. Zarco Attending Provider Arian, Dr. Zarco Referring Provider Danielito, Dr. Martinez Attending Provider Danielito, Dr. Martinez Other Provider Dr. Mady Dunn Referring Provider Dr. Juvenal Thompson Attending Provider Dr. Matthew Schuster Emergency Provider 1([facility])[phone] Dr. Yenny Abdul Attending Provider Dr. Yenny Abdul Admit Provider Dr. Yenny Abdul Other Provider Dr. Herrera Bauman Attending Provider 1([facility])[phone] Herrera Bauman Other Provider Dr. Herrera Goodrich Attending Provider 1([facility])[phone] Juvenal Thompson Referring Provider 1([facility])[phone] Dr. Noble Reynolds Admit Provider 1([facility])[phone] Noble Reynolds Attending Provider Dr. Noble Reynolds Other Provider 1([facility])[phone] Juvenal Thompson Other Provider 1([facility])[phone] Matt Mcclure Attending Provider 1([facility])[phone]. Alisia Lawrence Other Provider Dangelo, Dr. Richy Olmos Admit Provider Dangelo, Dr. Richy Olmos Referring Provider Dangelo, Dr. Richy Olmos Other Provider Friend, Dr. Valerio Attending Provider Friend, Dr. Valerio Other Provider Dr. Jorje Hood Admit Provider Unavailabl e Dr. Jorje Hood Other Provider Unavailabl e Dr. Mady Dunn Primary Care Provider Dr. Juan Esteves Attending Provider Dr. Juan Esteves Other Provider Dr. Ana Grayson Emergency Provider Dr. Pema Sal Admit Provider Doron, Dr. Pema Andrea Other Provider Doron, Dr. Pema Andrea Attending Provider Mady Dunn MD Primary Care Provider Renteria CENTRAL SUPPLY TECH.PRODUCE ASSISTANT, Maddison Unavailable Jose Armando CENTRAL SUPPLY TECH.YARD CRANE OPERATOR, Rosaura Unavailable Mady Dunn MD Primary Care Provider Adonis GOETZ, Viktoriya Primary Care Provider Kolton SIDDIQI, Alison Bhat Unavailable Unavailabl e Jose Armando CENTRAL SUPPLY TECH.YARD CRANE OPERATOR, Rosaura Unavailable Older CENTRAL SUPPLY TECH.YARD CRANE OPERATOR, Diana Unavailable Jose Armando AUDIO SPECIALIST-C, Rosaura Primary Care Provider Abebe GOETZ, Dr. Pressley Referring Provider Dr. Huan Lomas MD Emergency Provider Hood DO, Dr. Recinos Admit Provider Unavail able Hood DO, Dr. Recinos Other Provider Unavail able Danielito GOETZ, Dr. Martinez Attending Provider Danielito GOETZ, Dr. Martinez Other Provider Jose Armando AUDIO SPECIALIST-C, Rosaura Referring Provider Sima Walter Attending Provider Dr. Teodoro Real DO Attending Provider Adonis GOETZ, Dr. Sadler Primary Care Provider Adonis GOETZ, Dr. Sadler Referring Provider Dr. Teodoro Real DO Other Provider Dr. Juvenal Thompson MD Attending Provider Dr. Juvenal Thompson MD Referring Provider Joleen GOETZ, Dr. Silverman Attending Provider [phone] Bonifacio CENTRAL SUPPLY TECH.PRODUCE ASSISTANT, Maddison Unavailable Jose Armando CENTRAL SUPPLY TECH.YARD CRANE OPERATOR, Rosaura Unavailable Calixto LOERA, Dr. Thompson Emergency Provider Calixto LOERA, Dr. Thompson Attending Provider Vetokm PA, Tona Attending Provider Vetovitz PA, Tona Referring Provider Vetovitz PA, Tona Other Provider Curry GOETZ, Dr. Gonzalez Attending Provider Dr. Tobias Garcia DO Emergency Provider Sima Walter Attending Provider Dr. Tobias Garcia DO Attending Provider Sima Walter Referring Provider Sharon GOETZ, Rafal Emergency Provider GANTA, VIKTORIYA Referring Unavailable GANTA, VIKTORIYA Primary Care Unavailable GANTA, VIKTORIYA Referring Unavailable GANTA, VIKTORIYA Primary Care Unavailable VETOVITZ, TONA Attending Unavailable GANTA, VIKTORIYA Primary Care Unavailable ALINA DELVALLE Attending Unavailable GANTA, VIKTORIYA Primary Care Unavailable SPENCER BOONE Referring Unavail able GANTA, VIKTORIYA Primary Care Unavailable VETOVITZ, TONA Attending Unavailable GANTA, VIKTORIYA Primary Care Unavailable GANTA, VIKTORIYA Attending Unavailable GANTA, VIKTORIYA Primary Care Unavailable JOSE ARMANDO, ROSAURA Attending Unavailable TALAMPAS, MADY D Primary Care Unavailable ANA HERNANDEZ Attending Unavailable ANA HERNANDEZ Referring Unavailable TALAMPAS, MADY D Primary Care Unavailable RENTERIA, MADDISON Referring Unavailable TALAMPAS, MADY D Primary Care Unavailable GANTA, VIKTORIYA Attending Unavailable GANTA, VIKTORIYA Primary Care Unavailable ANA HERNANDEZ Referring Unavailable TALAMPAS, MADY D Primary Care Unavailable JOSE ARMANDO, ROSAURA Attending Unavailable TALAMPAS, MADY D Primary Care Unavailable JOSE ARMANDO, ROSAURA Referring Unavailable TALAMPAS, MADY D Primary Care Unavailable JOSE ARMANDO, ROSAURA Referring Unavailable TALAMPAS, MADY D Primary Care Unavailable GANTA, VIKTORIYA Referring Unavailable GANTA, VIKTORIYA Primary Care Unavailable GANTA, VIKTORIYA Referring Unavailable GANTA, VIKTORIYA Primary Care Unavailable GANTA, VIKTORIYA Attending Unavailable GANTA, VIKTORIYA Primary Care Unavailable Jose Armando AUDIO SPECIALIST, Rosaura Referring Unavailable Jose Armando AUDIO SPECIALIST, Rosaura Primary Care Unavailable Friend, Teodoro Consulting Unavailable Friend, Teodoro Attending Unavailable Ganta, Viktoriya Primary Care Unavailable Vetovitz, Tona Consulting Unavailable Vetovitz, Tona Referring Unavailable Lisa Zapien Attending Unavailable Jorje Hood Admitting Unavailable Lomas, Huan Referring Unavailable Jose Armando AUDIO SPECIALIST, Rosaura Primary Care Unavailable Juan Esteves Attending Unavailable Jorje Hood Consulting Unavailable Danielito Juan Consulting Unavailable Jorje Hood Attending Unavailable Ganta, Viktoriya Referring Unavailable Ganta, Viktoriya Primary Care Unavailable Friend, Teodoro Attending Unavailable Ganta, Viktoriya Primary Care Unavailable Rafal Herrera Attending Unavailable Jay De Luna Attending Unavailable Ganta, Viktoriya Primary Care Unavailable Ganta, Viktoriya Primary Care Unavailable Tobias Garcia Attending Unavailable Ganta, Viktoriya Referring Unavailable Ganta, Viktoriya Primary Care Unavailable Friend, Teodoro Attending Unavailable Friend, Teodoro Consulting Unavailable Herrera Goodrich Attending Unavailable Ganta, Viktoriya Primary Care Unavailable Juvenal Thompson Referring Unavailable Ganta, Viktoriya Referring Unavailable Ganta, Viktoriya Primary Care Unavailable Juvenal Thompson Attending Unavailable Jose Armando AUDIO SPECIALIST, Rosaura Primary Care Unavailable Swapna Acevedo Attending Unavail able Balbina Mady D Referring Unavailable Ganta, Viktoriya Primary Care Unavailable Sima Wheeler Attending Unavailable Sima Wheeler Referring Unavailable Ganta, Viktoriya Primary Care Unavailable Vetovitz, Tona Attending Unavailable Vetovitz, Tona Referring Unavailable Ganta, Viktoriya Primary Care Unavailable Juvenal Thompson Attending Unavailable Juvenal Thompson Referring Unavailable Jose Armando AUDIO SPECIALIST, Rosaura Primary Care Unavailable Frederick Zeng Attending Unavailable Jorje Hood Consulting Unavailable Jose Armando AUDIO SPECIALIST, Rosaura Primary Care Unavailable Juan Esteves Attending Unavailable Lomas, Huan Referring Unavailable Jorje Hood Admitting Unavailable Ganta, Viktoriya Referring Unavailable Ganta, Viktoriya Primary Care Unavailable Friend, Teodoro Attending Unavailable Jose Armando AUDIO SPECIALIST, Rosaura Referring Unavailable Jose Armando AUDIO SPECIALIST, Rosaura Primary Care Unavailable Atanasov, Sima Attending Unavailable Jose Armando AUDIO SPECIALIST, Rosaura Referring Unavailable Jose Armando AUDIO SPECIALIST, Rosaura Primary Care Unavailable Friend, Teodoro Attending Unavailable Jose Armando AUDIO SPECIALIST, Rosaura Referring Unavailable Jose Armando AUDIO SPECIALIST, Rosaura Primary Care Unavailable Atanasov, Sima Attending Unavailable Ganta, Viktoriya Referring Unavailable Ganta, Viktoriya Primary Care Unavailable Atanasov, Sima Attending Unavailable Jose Armando AUDIO SPECIALIST, Rosaura Referring Unavailable Jose Armando AUDIO SPECIALIST, Rosaura Primary Care Unavailable Atanasov, Sima Attending Unavailable Ganta, Viktoriya Referring Unavailable Ganta, Viktoriya Primary Care Unavailable Friend, Teodoro Attending Unavailable Friend, Teodoro Consulting Unavailable Friend DO, Dr. Valerio Attending Provider Adonis GOETZ, Dr. Sadler Primary Care Provider Adonis GOETZ, Dr. Sadler Referring Provider Friend , Dr. Valerio Other Provider Donna GOETZ, Dr. Buckner Attending Provider Donna GOETZ, Dr. Buckner Referring Provider Joleen GOETZ, Dr. Silverman Attending Provider Calixto LOERA, Dr. Thompson Attending Provider Dr. Jay De Luna DO Emergency Provider Vetovitz PA, Tona Attending Provider Vetovitz PA, Tona Referring Provider Vetovitz PA, Tona Other Provider Curry GOETZ, Dr. Gonzalez Attending Provider Dr. Tobias Garcia DO Attending Provider Dr. Tobias Garcia DO Emergency Provider Sima Walter Attending Provider Sima Walter Referring Provider Rafal Herrera MD Emergency Provider Amalia GOETZ, Dr. Jack Emergency Provider Rodolfo LOERA, Dr. Noble Admit Provider [phone] Dr. Noble Reynolds DO Attending Provider [phone] Dr. Noble Reynolds DO Referring Provider [phone] Allergies Allergy Classification Reported Allergen(s) Allergy Type Date of Onset Reaction(s) Facility amLODIPine (2 sources) amLODIPine Drug Allergy 6 Swelling [facility] Work Phone: Angiotensin Converting Enzyme (DIANA) Inhibitors (2 sources) Lisinopril Drug Allergy 2 Cough [facility] Aspirin (2 sources) Aspirin Drug Allergy 5 Unknown [facility] Work Phone: rOPINIRole (2 sources) rOPINIRole Drug Allergy 8 Other: See Comments [facility] (20 sources) aspirin; Translations: [ASPIRIN] Drug Allergy 5 Unknown [facility] [employer] Work Phone: (20 sources) lisinopril; Translations: [LISINOPRIL] Drug Allergy 2 Cough [facility] [employer] Work Phone: (20 sources) amLODIPine; Translations: [AMLODIPINE] Drug Allergy 6 Swelling [facility] Work Phone: (20 sources) rOPINIRole; Translations: [ROPINIROLE] Drug Allergy 8 Other: See Comments [facility] Work Phone: Medications Current Medications Medication Drug Class(es) Dates Sig (Normalized) Sig (Original) acetaminophen 500 mg oral tablet (20 sources) Start: 02-14-2024 Comment on above: Take 1,000 mg by rika every 6 hours as needed for pain (EVERY 6 HOURS NEEDED FOR PAIN). [id number] 200 actuat albuterol 0.09 mg/actuat metered dose inhaler (20 sources) beta2-Adrenergic Agonist Start: 09-17-2022 End: 12-20-2023 albuterol (PROVENTIL) 2.5 mg /3 mL (0.083 %) nebulizer solution Indications: Stage 1 mild COPD by GOLD classification ([facility]) , COPD with exacerbation ([facility]) Use 3 mL via nebulizer four times daily. USE 1 VIAL (3 ML) VIA NEBULIZER FOUR TIMES A DAY OVER 5 TO 15 MINUTES FOR WHEEZING AND SHORTNESS OF BREATH 1200 mL 3 09/17/2022 12/20/2023 Discontinued (Course of therapy completed) Start: 05-28-2022 End: 06-06-2024 Start: 05-28-2022 End: 06-06-2024 take 2.5 mg by inhalation every four hours as needed for wheezing Albuterol Sulfate 2.5 mg /3 mL (0.083 %) solution for nebulization Discontinued 2.5 mg INHALATION Q4H as needed for shortness of breath or wheezing May 28, 2022 1:00am June 06, 2024 9:27pm Start: 03-29-2022 End: 10-15-2024 take 2 puff(s) by inhalation every four hours as needed for wheezing albuterol HFA (VENTOLIN HFA) 90 mcg/actuation inhaler Indications: Exercise-induced asthma (HCC) , Chronic obstructive pulmonary disease with acute exacerbation (HCC) Inhale 2 Puffs as instructed every 4 hours as needed for wheezing/shortness of breath. May take 2 puffs prior to exercise 54 g 3 10/15/2024 Active Start: 12-07-2021 End: 03-27-2022 take 2 puff(s) by inhalation every four hours as needed for wheezing albuterol HFA (VENTOLIN HFA) 90 mcg/actuation inhaler Indications: Exercise-induced asthma , Stage 1 mild COPD by GOLD classification ([facility]) Inhale 2 Puffs as instructed every 4 hours as needed for wheezing/shortness of breath. May take 2 puffs prior to exercise 54 g 3 12/07/2021 03/27/2022 Discontinued Start: 09-15-2021 End: 09-17-2022 albuterol (PROVENTIL) 2.5 mg /3 mL (0.083 %) nebulizer solution Indications: Stage 1 mild COPD by GOLD classification ([facility]) USE 1 VIAL (3 ML) VIA NEBULIZER FOUR TIMES A DAY OVER 5 TO 15 MINUTES FOR WHEEZING AND SHORTNESS OF BREATH 360 mL 3 03/30/2022 09/03/2022 Discontinued Start: 03-06-2021 take 2 puff(s) by in halation every four hours as needed for wheezing albuterol HFA (VENTOLIN HFA) 90 mcg/actuation inhaler Indications: Exercise-induced asthma , 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) Inhale 2 Puffs as instructed every 4 hours as needed for wheezing/shortness of breath. May take 2 puffs prior to exercise 54 g 3 03/06/2021 Active Start: 03-16-2018 take 1 puff(s) by in halation twice daily Albuterol Sulfate Active 2 PUFF INHALATION TWICE A DAY March 16, 2018 8:59am Start: 03-16-2018 take 1 puff(s) by in halation twice daily Albuterol Sulfate Active 2 PUFF INHALATION TWICE A DAY March 16, 2018 8:59am Start: 05-07-2017 End: 03-16-2018 Albuterol Sulfate 1 INHALER inhaler Discontinued 2 NMA INHALATION 4 TIMES DAILY as needed for Sob &/Or Wheezing May 07, 2017 2:36am March 16, 2018 10:00am Start: 10-03-2016 End: 03-16-2018 Start: 10-03-2016 End: 05-07-2017 take 2 puff(s) by inhalation four times daily as needed Albuterol Sulfate (Ventolin Hfa (Sp)) 1 INHALER inhaler Discontinued 2 NMA INHALATION 4 TIMES DAILY 1 October 03, 2016 12:00am May 07, 2017 2:36am use for seven days, then two puffs four times a day as needed for shortness of breath thereafter Start: 10-03-2016 End: 03-16-2018 Start: 10-03-2016 End: 03-16-2018 take 1 puff(s) by inhalation four times daily Albuterol Sulfate Discontinued 2 PUFF INHALATION 4 TIMES DAILY May 07, 2017 1:36am March 16, 2018 9:00am Comment on above: Inhale 2 Puffs as in structed every 4 hours as needed for wheezing/shortness of breath. May take 2 puffs prior to exercise USE 1 VIAL (3 ML) A NEBULIZER FOUR TIMES A DAY OVER 5 TO 15 MINUTES FOR WHEEZING AND SHORTNESS OF BREATH Use 3 mL via nebuliz er four times daily. USE 1 VIAL (3 ML) VIA NEBULIZER FOUR TIMES A DAY OVER 5 TO 15 MINUTES FOR WHEEZING AND SHORTNESS OF BREATH Albuterol Sulfate 90 mcg/actuation HFA aerosol inhaler (9 sources) Start: 03-16-2018 Albuterol Sulfate 90 mcg/actuation HFA aerosol inhaler Active 2 NMA INHALATION Q4H as needed for shortness of breath or wheezing March 16, 2018 9:59am Start: 03-16-2018 Albuterol Sulf ate 90 mcg/actuation HFA aerosol inhaler Active 2 NMA INHALATION TWICE A DAY as needed for shortness of breath or wheezing March 16, 2018 9:59am arformoterol 0.0075 mg/ml inhalation solution (20 sources) beta2-Adrenergic Agonist Start: 10-17-2023 End: 10-05-2025 take 2 mL by inhalation every twelve hours arformoterol (BROVANA) 15 mcg/2 mL nebulizer solution Indications: Chronic obstructive pulmonary disease, unspecified COPD type (HCC) Inhale 2 mL as instructed every 12 hours. 360 mL 3 10/05/2024 10/05/2025 Active Comment on above: Inhale 2 mL as instr ucted every 12 hours. Arformoterol 15 mcg/2 mL solution for nebulization (9 sources) Start: 02-14-2024 Arformoterol 15 mcg/2 mL solution for nebulization Active 15 ug INHALATION TWICE A DAY February 14, 2024 12:00am atorvastatin 40 mg oral tablet (20 sources) HMG-CoA Reductase Inhibitor Start: 02-22-2016 End: 10-05-2024 Comment on above: Take 1 tablet by rika once daily. take 1 tablet daily budesonide 0.25 mg/ml inhalation suspension (20 sources) Corticosteroid Start: 11-28-2024 take 0.5 mg by inhalation twice daily Budesonide 0.5 mg/2 mL suspension for nebulization Active 0.5 mg INHALATION TWICE A DAY November 28, 2024 12:00am Start: 10-05-2024 End: 10-05-2025 budesonide (PULMICORT) 0.5 m g/2 mL nebulizer solution Indications: Chronic obstructive pulmonary disease, unspecified COPD type (HCC) Use 2 mL via nebulizer two times a day. 360 mL 3 10/05/2024 10/05/2025 Active Start: 08-21-2024 End: 09-17-2025 budesonide (PULMICORT) 0.5 m g/2 mL nebulizer solution Indications: Chronic obstructive pulmonary disease, unspecified COPD type (HCC) USE 1 VIAL IN NEBULIZER EVERY 12 HOURS OVER 5-15 MINUTES 120 mL 11 09/17/2024 10/05/2024 Discontinued Start: 09-09-2023 End: 11-28-2024 take 0.25 mg by inhalation twice daily Budesonide 0.5 mg/2 mL suspension for nebulization Discontinued 0.25 mg INHALATION TWICE A DAY September 09, 2023 1:59pm November 28, 2024 2:12pm Start: 08-17-2023 End: 08-16-2024 budesonide (PULMICORT) 0.5 m g/2 mL nebulizer solution Indications: Chronic obstructive pulmonary disease, unspecified COPD type (HCC) USE 1 VIAL IN NEBULIZER EVERY 12 HOURS OVER 5-15 MINUTES 120 mL 11 08/17/2023 08/16/2024 Active Start: 05-28-2022 End: 11-28-2024 Start: 05-28-2022 End: 12-06-2022 take 0.25 mg by inhalation once daily as needed Budesonide 0.5 mg/2 mL suspension for nebulization Discontinued 0.25 mg INHALATION DAILY as needed May 28, 2022 1:00am December 06, 2022 9:27am Start: 05-28-2022 End: 09-09-2023 take 0.25 mg by inhalation three times daily as needed Budesonide 0.5 mg/2 mL suspension for nebulization Discontinued 0.25 mg INHALATION THREE TIMES A DAY as needed for shortness of breath December 06, 2022 9:26am September 09, 2023 2:00pm Start: 03-29-2022 End: 08-17-2023 budesonide (PULMICORT) 0.5 m g/2 mL nebulizer solution Use 2 mL via nebulizer twice daily. 180 mL 3 07/29/2022 08/17/2023 Discontinued Start: 09-18-2021 End: 03-27-2022 budesonide (PULMICORT) 0.5 m g/2 mL nebulizer solution INHALE THE CONTENTS OF 1 VIAL (2 ML) VIA NEBULIZER TWICE A DAY. USE EVERY 12 HOURS OVER 5 TO 15 MINUTES. 360 mL 3 09/18/2021 03/27/2022 Discontinued Start: 01-21-2020 End: 10-20-2020 Start: 01-21-2020 End: 10-20-2020 take 0.5 mg by inhalation once daily Budesonide 0.5 mg/2 mL suspension for nebulization Discontinued 0.5 mg INHALATION DAILY January 21, 2020 12:00am October 20, 2020 2:23pm Start: 01-21-2020 End: 10-20-2020 Comment on above: INHALE THE CONTENTS OF 1 VIAL (2 ML) VIA NEBULIZER TWICE A DAY. USE EVERY 12 HOURS OVER 5 TO 15 MINUTES. Use 2 mL via nebuliz er twice daily. Use 2 mL via nebuliz er twice daily. INHALE 2 ML BY NEBULIZER OVER 5-15 MINUTES EVERY 12 HOURS. USE 1 VIAL IN NEBULI ZER EVERY 12 HOURS OVER 5-15 MINUTES cefdinir 300 mg oral capsule (2 sources) Cephalosporin Antibacterial Start: End: take 1 capsule by mouth twice daily cefdinir (OMNICEF) 300 mg capsule Indications: Diverticulitis , Dysuria Take 1 capsule by mouth twice daily for 10 days. 20 capsule 0 12/27/2022 01/06/2023 Active Comment on above: Take 1 capsule by [facility] twice daily for 10 days. cholecalciferol 0.125 mg oral capsule (20 sources) Vitamin D Start: Start: 10-19-2023 End: 02-13-2024 take 2 capsules by mouth once daily Cholecalciferol, Vitamin D3, 25 mcg (1,000 unit) cap Take 2 capsules by mouth once daily. 0 10/19/2023 02/13/2024 Discontinued Start: 03-08-2018 End: 02-14-2024 Start: 03-08-2018 End: 10-09-2018 take 1 tablet by mouth once daily Cholecalciferol (Vitamin D3) 1,000 unit tablet Discontinued 1000 U PO DAILY March 08, 2018 12:00am October 09, 2018 9:53am Start: 03-08-2018 End: 10-09-2018 Start: 01-08-2014 End: 10-19-2023 take 1 capsule by mouth once daily Cholecalciferol, Vitamin D3, 1,000 unit cap Take 1 capsule by mouth once daily. 0 01/08/2014 10/19/2023 Discontinued (Adjust Sig - Block E-Cancel) Comment on above: Take 1 capsule by mo ut once daily. Take 2 capsules by [facility] once daily. cholecalciferol, vitamin D3, (VITAMIN D3 ORAL) (15 sources) take 1 tablet by mouth once daily cholecalciferol, vitamin D3, (VITAMIN D3 ORAL) Take 1 tablet by mouth once daily. Active clopidogrel 75 mg oral tablet (20 sources) [id number] Platelet Inhibitor Start: 02-22-2016 End: 10-05-2024 Comment on above: Take 1 tablet by rika th once daily. take 1 tablet daily doxycycline hyclate 100 mg oral tablet (9 sources) Tetracycline-class Drug Start: 08-17-2023 End: 08-24-2023 take 1 tablet by mouth twice daily doxycycline (VIBRA-TABS) 100 mg tablet Indications: Acute bronchitis, unspecified organism Take 1 tablet by mouth two times a day for 7 days. 14 tablet 0 08/17/2023 08/24/2023 Active Start: 10-30-2022 End: 11-06-2022 take 1 tablet by mouth twice daily doxycycline monohydrate 100 mg tablet Take 1 tablet by mouth twice daily for 7 days. 14 tablet 0 10/30/2022 11/06/2022 Active Start: 07-29-2022 End: 09-10-2022 take 1 capsule by mouth twice daily doxycycline hyclate (VIBRAMYCIN) 100 mg capsule Indications: COPD with exacerbation (HCC) Take 1 capsule by mouth twice daily for 7 days. 14 capsule 0 09/03/2022 09/10/2022 Active Start: 06-16-2022 End: 06-23-2022 take 1 tablet by mouth twice daily doxycycline (VIBRA-TABS) 100 mg tablet Indications: Chronic obstructive pulmonary disease with acute exacerbation (HCC) Take 1 tablet by mouth twice daily for 7 days. 14 tablet 0 06/16/2022 06/23/2022 Active Comment on above: Take 1 tablet by rika twice daily for 7 days. Take 1 capsule by [facility] twice daily for 7 days. Take 1 tablet by rika th two times a day for 7 days. DULoxetine 60 mg delayed release oral capsule (20 sources) Serotonin and Norepinephrine Reuptake Inhibitor Start: 12-27-2024 Start: 04-06-2024 End: 10-05-2024 take 1 capsule by mouth once daily DULoxetine (CYMBALTA) 60 mg capsule Indications: Chronic bilateral low back pain, unspecified whether sciatica present Take 1 capsule by mouth once daily. 90 capsule 3 10/05/2024 Active Start: 02-14-2024 End: 12-27-2024 Start: 12-30-2023 End: 04-06-2024 take 2 capsules by mouth once daily DULoxetine (CYMBALTA) 20 mg capsule Take 2 capsules by mouth once daily. 60 capsule 3 12/30/2023 04/06/2024 Discontinued Start: 12-28-2023 End: 12-30-2023 take 1 capsule by mouth once daily DULoxetine (CYMBALTA) 40 mg cpDR Indications: Anxiety Take 1 capsule by mouth once daily. 30 capsule 3 12/28/2023 12/30/2023 Discontinued Start: 11-30-2023 End: 12-28-2023 take 1 capsule by mouth once daily DULoxetine (CYMBALTA) 20 mg capsule Indications: Anxiety Take 1 capsule by mouth once daily. 30 capsule 2 11/30/2023 12/28/2023 Discontinued Start: 08-17-2023 End: 02-14-2024 Comment on above: Take 30 mg by mouth two times a day. furosemide 40 mg oral tablet (20 sources) Loop Diuretic Start: 06-08-2024 End: 09-24-2024 take 1 tablet by mouth once daily Furosemide 40 mg tablet Discontinued 40 mg PO DAILY 60 June 08, 2024 1:18pm September 24, 2024 1:51pm Start: 10-12-2023 End: 09-24-2024 Start: 01-28-2021 End: 10-19-2023 Start: 01-28-2021 End: 10-05-2025 take 1 tablet by mouth twice daily furosemide (LASIX) 40 mg tablet Indications: Primary hypertension Take 1 tablet by mouth two times a day. 180 tablet 3 10/05/2024 10/05/2025 Active End: 10-19-2023 inject 40 mg intravenously twice daily furosemide (LASIX) 40 mg/4 mL soln Inject 40 mg intravenously two times a day. Vial 0 10/19/2023 Discontinued Comment on above: Take 40 mg by mouth once daily. Take 1 tablet by rika th twice daily. As directed Take 1 tablet by rika th once daily. Inject 40 mg intrave nously two times a day. Vial Take 1 tablet by [facility] two times a day. gabapentin 100 mg oral capsule (20 sources) Anti-epileptic Agent Start: 3 End: 3 take 1 capsule by mouth twice daily gabapentin (NEURONTIN) 100 mg capsule Take 1 capsule by mouth twice daily for 60 days. 60 capsule 1 04/13/2023 06/12/2023 Active Start: 05-07-2017 End: 03-08-2018 Comment on above: Take 1 capsule by [facility] twice daily for 60 days. 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 Discontinue saline lock post exam. If Pt. has a central line or IVAD, may access for administration according to line specific nursing protocol. Once exam is complete flush line and de-access according to line specific nursing protocol in the CT contrast administration guidelines link. 1 Each 0 01/04/2022 01/05/2022 Active Start: 11-24-2021 End: 11-25-2021 inject 1 dose intravenously once iv contrast (will be provided with radiology test) CTA ABD/PEL LE - No IV access, insert saline lock prior to the sedation, infusion, injection for imaging exam. Discontinue saline lock post exam. If Pt. has a central line or IVAD, may access for administration according to line specific nursing protocol. Once exam is complete flush line and de-access according to line specific nursing protocol in the CT contrast administration guidelines link. 1 Each 0 11/24/2021 11/25/2021 Active Comment on above: CTA ABD/PEL LE - No IV access, insert saline lock prior to the sedation, infusion, injection for imaging exam. Discontinue saline lock post exam. If Pt. has a central line or IVAD, may access for administration according to line specific nursing protocol. Once exam is complete flush line and de-access according to line specific nursing protocol in the CT contrast administration guidelines link. CT kidney wow Inject , intravenously, once for 1 dose.No IV access, insert saline lock prior to the beginning of sedation, infusion, injection of imaging exam. Discontinue saline lock post exam. If Pt. has a central line or IVAD, may access for administration according to line specific nursing protocol. Once exam is complete flush line and de-access according to line specific nursing protocol in the CT contrast administration guidelines link. magnesium oxide 400 mg oral capsule (20 sources) Start: 11-28-2024 Start: 07-31-2024 take 1 tablet by rika th once daily magnesium oxide (MAG-OX) 400 mg (241.3 mg magnesium) tablet Indications: Hypocalcemia , Hypomagnesemia Take 1 tablet by mouth once daily. 30 tablet 11 07/31/2024 Active Start: 10-27-2023 End: 02-13-2024 take 1 tablet by mouth once daily magnesium oxide (MAG-OX) 400 mg (241.3 mg magnesium) tablet Indications: Hypocalcemia , Hypomagnesemia Take 1 tablet by mouth once daily. 30 tablet 11 10/27/2023 02/13/2024 Discontinued Comment on above: Take 1 tablet by rika th once daily. melatonin 5 mg oral capsule (3 sources) End: 2023 Melatonin 5 mg cap Take by mouth. 0 09/02/2023 Discontinued Comment on above: Take by mouth. methylPREDNISolone (1 source) Corticosteroid Start: 2022 End: 2022 methylPREDNISolone (MEDROL, MARGE,) 4 mg Dose-Pack Follow dosing instructions, take with food. 21 tablet 0 10/30/2022 11/05/2022 Active Comment on above: Follow dosing instru ctions, take with food. Multivitamin With Folic Acid (12 sources) Start: 2015 take 1 tablet by mouth once daily Multivitamin With Folic Acid Active 1 TABLET PO DAILY February 22, 2016 12:00am Start: 02-22-2016 take 1 tablet by rika th once daily Multivitamin With Folic Acid Active 1 TABLET PO DAILY February 21, 2016 11:00pm Ijrfvamjmefkk-Webcjnib-Grrzk n (CENTRUM SILVER) ORAL Tab (20 sources) Start: 11-09-2006 End: 02-04-2022 take 1 tablet by mouth once daily Lxjzumrperzzf-Xrsplnwe-Bamwfk (CENTRUM SILVER) ORAL Tab Take one(1) tablet daily. 0 11/09/2006 02/04/2022 Discontinued (Course of therapy completed) Start: 11-09-2006 take 1 tablet by rika th once daily Cylquzguujjlu-Qeztmhvm-Fmewho (CENTRUM SILVER) ORAL Tab Take one(1) tablet daily. 0 11/09/2006 Active Comment on above: Take one(1) tablet d aily. oxyCODONE hydrochloride 5 mg oral tablet (14 sources) Opioid Agonist Start: 01-07-2025 Start: 11-05-2023 End: 11-17-2023 OXYGEN, HOME THERAPY, (20 sources) OXYGEN, HOME THE RAPY, 2 L/min by Nasal Cannula route as directed. 4L/min at night Active OXYGEN, HOME THE RAPY, 2 L/min by Nasal Cannula route as directed. Active OXYGEN, HOME THE RAPY, 3 L/min by Nasal Cannula route as directed. Active OXYGEN, HOME THE RAPY, 3 L/min by Nasal Cannula route as directed. 0 Active Comment on above: 3 L/min by Nasal Can nula route as directed. pantoprazole 40 mg delayed release oral tablet (20 sources) Proton Pump Inhibitor Start: take 1 tablet by mouth every twelve hours Pantoprazole 40 mg Tablet,Delayed Release (Dr/Ec) Active 40 mg PO Q12H September 24, 2024 12:00am Start: 02-08-2024 End: 10-05-2024 take 1 tablet by mouth once daily Pantoprazole 40 mg Tablet,Delayed Release (Dr/Ec) Discontinued 40 mg PO DAILY June 08, 2024 1:18pm September 24, 2024 1:51pm Start: 09-09-2023 End: 06-08-2024 Start: 09-09-2023 End: 10-05-2025 Start: 09-09-2023 End: 10-12-2023 take 1 tablet by mouth once daily Pantoprazole 40 mg Tablet,Delayed Release (Dr/Ec) Discontinued 40 mg PO DAILY September 09, 2023 1:00am October 12, 2023 8:18pm Comment on above: Take 40 mg by mouth two times a day. polysaccharide iron complex 150 mg oral capsule (20 sources) Start: 10-12-2023 End: 10-05-2024 Comment on above: Take 150 mg by mouth once daily. pramipexole dihydrochloride 1.5 mg oral tablet (20 sources) Nonergot Dopamine Agonist Start: 04-19-2023 End: 10-05-2025 Start: 07-26-2022 End: 04-19-2023 take 1 tablet by mouth once daily at bedtime pramipexole (MIRAPEX) 1 mg tablet Take 1 tablet by mouth daily at bedtime. 90 tablet 3 07/26/2022 04/19/2023 Discontinued Start: 08-03-2021 End: 07-24-2022 take 1 tablet by mouth once daily at bedtime pramipexole (MIRAPEX) 1 mg tablet Take 1 tablet by mouth daily at bedtime. 90 tablet 3 08/03/2021 07/24/2022 Discontinued Start: 02-22-2016 End: 10-19-2023 Start: 02-22-2016 End: 08-18-2023 Start: 02-22-2016 End: 08-18-2023 take 1.5 mg by mouth at bedtime Pramipexole Discontinu ed 1.5 MG PO AT BEDTIME February 21, 2016 11:00pm August 18, 2023 3:50pm Comment on above: Take 1 tablet by rika th daily at bedtime. Take 1.5 mg by mouth daily at bedtime. 1000 ml sodium chloride 9 mg/ml injection (11 sources) Start: 12-07-2021 End: 02-04-2022 0.9 % sodium chloride (NACL 0.9%) infusion Inject 500 mL/hr intravenously continuous. 500 mL 0 12/07/2021 02/04/2022 Discontinued (Course of therapy completed) Comment on above: Inject 500 mL/hr int ravenously continuous. spironolactone 25 mg oral tablet (20 sources) Aldosterone Antagonist Start: 11-25-2023 End: 10-05-2024 Start: 12-27-2022 End: 10-19-2023 take 1 tablet by mouth twice daily spironolactone (ALDACTONE) 50 mg tablet Indications: Diverticulitis Take 1 tablet by mouth twice daily. 12/27/2022 10/19/2023 Discontinued Start: 02-22-2016 End: 09-12-2023 Start: 02-22-2016 End: 09-12-2023 take 1 tablet by mouth twice daily spironolactone (ALDACTONE) 25 mg tablet Take 1 tablet by mouth twice daily. 60 tablet 5 09/24/2022 12/27/2022 Discontinued Comment on above: Take 1 tablet by rika th once daily. Take one additional 25 mg spironolactone for SBP greater than 150 Take 1 tablet by rika th twice daily. Completed/Discontinued Medications Medication Drug Class(es) Dates Sig (Normalized) Sig (Original) acetaminophen 325 mg / HYDROcodone bitartrate 5 mg oral tablet (20 sources) Opioid Agonist Start: 08-17-2023 End: 09-03-2023 Start: 08-17-2023 End: 09-03-2023 Hydrocodone-Acetaminophen 5- 325 mg tablet Discontinued 1 {tbl} PO THREE TIMES A DAY as needed for pain August 17, 2023 1:00am September 03, 2023 12:33pm Start: 08-17-2023 End: 09-03-2023 Start: 08-17-2023 End: 09-03-2023 take 1 tablet by mouth three times daily Hydrocodone-Acetaminophen Discontinued 1 TABLET PO THREE TIMES A DAY August 17, 2023 12:00am September 03, 2023 11:33am Start: 12-30-2022 End: 06-19-2023 Start: 12-30-2022 End: 06-19-2023 Hydrocodone-Acetaminophen 5- 325 mg tablet Discontinued 1 {tbl} PO EVERY 6 HOURS as needed for pain 8 2 April 16, 2023 June 19, 2023 1:51pm Start: 12-30-2022 End: 06-19-2023 Start: 12-30-2022 End: 06-19-2023 take 1 tablet by mouth every six hours Hydrocodone-Acetaminophen Discontinued 1 TABLET PO EVERY 6 HOURS 8 2 April 16, 2023 June 19, 2023 12:51pm albuterol 0.833 mg/ml / ipratropium bromide 0.167 mg/ml inhalation solution (20 sources) Anticholinergic, beta2-Adrenergic Agonist Start: 05-28-2022 End: 10-13-2023 Start: 05-28-2022 End: 10-13-2023 take 1 mL by inhalation every six hours as needed Ipratropium-Albuterol 0.5 mg-3 mg(2.5 mg base)/3 mL solution for nebulization Discontinued 3 mL INHALATION EVERY 6 HOURS as needed for shortness of breath May 28, 2022 1:00am October 13, 2023 5:15pm Start: 05-28-2022 End: 10-13-2023 Start: 05-28-2022 take 1 mL by inhalat ion every six hours Ipratropium-Albuterol Active 3 ML INHALATION EVERY 6 HOURS May 28, 2022 12:00am Start: 01-21-2020 End: 10-20-2020 Start: 01-21-2020 End: 10-20-2020 take 1 mL by inhalation every four hours Ipratropium-Albuterol 0.5 mg-3 mg(2.5 mg base)/3 mL solution for nebulization Discontinued 3 mL INHALATION Q4H January 21, 2020 12:00am October 20, 2020 2:23pm Start: 01-21-2020 End: 10-20-2020 Start: 01-21-2020 End: 10-20-2020 take 1 mL by inhalation every four hours Ipratropium-Albuterol Discontinued 3 ML INHALATION Q4H January 20, 2020 11:00pm October 20, 2020 1:23pm amitriptyline hydrochloride 10 mg oral tablet (10 sources) Tricyclic Antidepressant Start: 05-01-2024 End: 06-06-2024 amLODIPine 5 mg oral tablet (20 sources) Dihydropyridine Calcium Channel Kevan Start: 07-03-2019 End: 10-20-2020 Start: 10-09-2018 End: 07-03-2019 Start: 10-09-2018 End: 11-21-2018 take 1 tablet by mouth once daily Amlodipine 10 mg tablet Discontinued 10 mg PO DAILY 90 October 09, 2018 10:26am November 21, 2018 10:09am Start: 10-09-2018 End: 07-03-2019 Start: 04-28-2018 End: 10-09-2018 Start: 03-16-2018 End: 04-28-2018 amoxicillin 500 mg / clavula wero 125 mg oral tablet (12 sources) Penicillin-class Antibacterial Start: 11-05-2023 End: 11-17-2023 Start: 11-05-2023 End: 11-17-2023 Amoxicillin-Pot Clavulanate (Augmentin) 500-125 mg tablet Discontinued 1 {tbl} PO TWICE A DAY 24 November 05, 2023 12:00am November 17, 2023 1:50pm Start: 11-05-2023 Arthritis Pain Compound (9 sources) Start: 11-06-2023 End: 09-24-2024 Arthritis Pain Compound Discontinued 3 NMA TOPICAL TWICE A DAY 0 November 06, 2023 12:00am September 24, 2024 1:51pm Please use the compounded cream ordered in the hospital. If this assists greatly you may ask PCP at follow-up to request refill from [facility] where it is compounded. ascorbic acid 500 mg oral tablet (20 sources) Vitamin C Start: 10-12-2023 End: 02-14-2024 Start: 10-12-2023 End: 02-14-2024 Ascorbic Acid (Vitamin C) 50 0 mg Tablet Discontinued 500 mg PO 1000 0 October 12, 2023 12:00am February 14, 2024 10:27am Start: 10-12-2023 End: 02-13-2024 take 1 capsule by mouth once daily ascorbic acid, vitamin C, 500 mg cap Take 500 mg by mouth once daily. 02/13/2024 Discontinued Comment on above: Take 500 mg by mouth once daily. aspirin 81 mg delayed release oral tablet (20 sources) Platelet Aggregation Inhibitor, Nonsteroidal Anti-inflammatory Drug Start: 09-09-2023 End: 10-19-2023 Comment on above: Take 81 mg by mouth once daily. baclofen 5 mg oral tablet (20 sources) gamma-Aminobutyric Acid-ergic Agonist Start: 11-18-2023 End: 02-08-2024 baclofen 5 mg tablet Take 5 mg by mouth as needed. 0 11/18/2023 02/08/2024 Discontinued Start: 07-14-2023 End: 10-19-2023 baclofen 5 mg tablet benzonatate 100 mg oral caps ule (20 sources) Non-narcotic Antitussive Start: 06-25-2023 End: 08-18-2023 Start: 06-25-2023 End: 08-18-2023 Start: 12-06-2022 End: 06-19-2023 Start: 09-03-2022 End: 06-19-2023 take 1 capsule by mouth three times daily as needed for cough Benzonatate 100 mg capsule Discontinued 100 mg PO THREE TIMES A DAY as needed for cough December 06, 2022 12:00am June 19, 2023 1:50pm Comment on above: Take 1-2 capsules by mouth three times daily as needed for cough. betamethasone 3 mg/ml / betamethasone acetate 3 mg/ml injectable suspension (2 sources) Corticosteroid Start: 01-07-2025 End: 01-07-2025 betamethasone acetate-betamethasone sodium phosphate 3 mg injection (CELESTONE) Start: 01-07-2025 End: 01-07-2025 3 mg, Injection - FOR ORTHO USE ONLY, ONCE, 1 dose, Starting on Tue01/07/25 at 1030, Until Tue01/07/25 at 1030 calcium carbonate 1250 mg chewable tablet (10 sources) Start: 06-08-2024 End: 09-24-2024 carvedilol 12.5 mg oral tabl et (20 sources) alpha-Adrenergic Kevan, beta-Adrenergic Kevan Start: 09-24-2024 End: 11-28-2024 Start: 06-06-2024 End: 07-19-2024 Start: 06-06-2024 End: 09-24-2024 take 1 tablet by mouth twice daily Carvedilol 12.5 mg tablet Discontinued 12.5 mg PO TWICE A DAY 180 July 19, 2024 11:51am September 24, 2024 1:51pm Start: 12-28-2023 End: 10-05-2025 Start: 11-25-2023 End: 02-14-2024 Start: 12-26-2020 End: 12-14-2022 take 2 tablets by mouth twice daily carvedilol (COREG) 6.25 mg tablet Take 2 tablets by mouth twice daily. (Dr. Smith adjusting) 1 tablet 12/26/2020 12/14/2022 Discontinued Start: 12-01-2020 End: 04-27-2023 Start: 12-01-2020 End: 02-14-2024 take 1 tablet by mouth twice daily at mealtime Carvedilol 12.5 mg tablet Discontinued 12.5 mg PO TWICE A DAY November 25, 2023 12:00am February 14, 2024 10:24am must administer with a meal/food Start: 01-03-2019 End: 12-01-2020 Start: 01-03-2019 End: 12-01-2020 take 1 tablet by mouth twice daily at mealtime Carvedilol 6.25 mg tablet Discontinued 6.25 mg PO TWICE A DAY 180 December 03, 2019 2:44pm October 20, 2020 3:04pm must administer with a meal/food Start: 11-21-2018 End: 01-03-2019 Comment on above: Take 2 tablets by mo uth twice daily. (Dr. Smith adjusting) Take 12.5 mg by mout h twice daily. cetirizine hydrochloride 10 mg oral tablet (6 sources) Histamine-1 Receptor Antagonist Start: 12-17-2024 End: 01-11-2025 ciprofloxacin 500 mg oral ta blet (20 sources) Quinolone Antimicrobial Start: 11-28-2024 End: 12-17-2024 Start: 06-08-2024 End: 09-24-2024 Start: 12-09-2022 take 1 tablet by rika once daily ciprofloxacin HCl (CIPRO) 500 mg tablet Take 500 mg by mouth once daily. 12/09/2022 Active Start: 12-09-2022 End: 06-19-2023 clotrimazole/betamethasone d ip (LOTRISONE TOPICAL) (4 sources) End: 10-19-2023 clotrimazole/betamethasone d ip (LOTRISONE TOPICAL) Apply 1 Application to affected area two times a day. 0 10/19/2023 Discontinued clotrimazole/bet amethasone dip (LOTRISONE TOPICAL) Apply 1 Application to affected area two times a day. 0 Active Comment on above: Apply 1 Application to affected area two times a day. Compression Socks, Medium misc (20 sources) Start: 10-27-2023 End: 10-26-2024 Compression Socks, Medium misc 2 Each once daily. Or size to fit. 10-20 mmHg. On in a.m., off in evening. 2 Each 3 10/27/2023 10/26/2024 Start: 10-27-2023 End: 10-26-2024 Compression Socks, Medium mi sc 2 Each once daily. Or size to fit. 10-20 mmHg. On in a.m., off in evening. 2 Each 3 10/27/2023 10/26/2024 Active Comment on above: 2 Each once daily. O r size to fit. 10-20 mmHg. On in a.m., off in evening. dexamethasone 2 mg oral tabl et (20 sources) Corticosteroid Start: 09-09-2023 End: 10-12-2023 Start: 08-20-2023 End: 09-09-2023 12 hr dextromethorphan hydrobromide 30 mg / guaiFENesin 600 mg extended release oral tablet (20 sources) Uncompetitive K-bmrtjn-B-aspartate Receptor Antagonist, Sigma-1 Agonist Start: 09-09-2023 End: 06-06-2024 Start: 09-09-2023 Start: 06-25-2023 End: 08-18-2023 Start: 06-25-2023 End: 06-06-2024 Dextromethorphan-Guaifenesin (Mucinex Dm) 30-600 mg Tablet Extended Release 12 Hr Discontinued 2 {tbl} PO TWICE A DAY 0 September 09, 2023 1:00am February 14, 2024 10:27am Start: 06-25-2023 End: 08-18-2023 Comment on above: Take 2 tablets by [facility] two times a day. diazePAM 2 mg oral tablet (20 sources) Benzodiazepine Start: 05-09-2017 End: 03-08-2018 diclofenac sodium 0.01 mg/mg topical gel (20 sources) Nonsteroidal Anti-inflammatory Drug Start: 09-03-2023 End: 10-12-2023 dicyclomine hydrochloride 10 mg oral capsule (5 sources) Anticholinergic Start: 12-18-2024 End: 01-11-2025 docusate sodium 50 mg / sennosides, residential 8.6 mg oral tablet (20 sources) Start: 09-09-2023 End: 10-12-2023 Start: 09-09-2023 End: 10-12-2023 Sennosides-Docusate Sodium ( Stool Softener-Stimulant Laxat) 8.6-50 mg Tablet Discontinued 2 {tbl} PO TWICE A DAY as needed for constipation 0 September 09, 2023 1:00am October 12, 2023 8:18pm Start: 09-09-2023 End: 10-12-2023 ferrous sulfate 325 mg oral tablet (9 sources) Start: 09-09-2023 End: 10-12-2023 take 1 tablet by mouth at lunch Ferrous Sulfate (Ferosul) 325 mg (65 mg iron) Tablet Discontinued 325 mg PO QODAY@LUNCH 0 September 09, 2023 1:00am October 12, 2023 8:17pm fluticasone propionate 0.05 mg/actuat metered dose nasal spray (20 sources) Corticosteroid Start: 09-17-2022 End: 05-23-2023 take 2 spray(s) by mouth once daily fluticasone (FLONASE) 50 mcg/actuation nasal spray Use 2 Sprays in each nostril once daily. Rinse mouth after use. 1 Each 1 09/17/2022 05/23/2023 Discontinued Comment on above: Use 2 Sprays in each nostril once daily. Rinse mouth after use. hydrALAZINE hydrochloride 10 mg oral tablet (20 sources) Arteriolar Vasodilator Start: 04-25-2023 End: 05-06-2023 take 1 tablet by mouth twice daily hydrALAZINE (APRESOLINE) 10 mg tablet Take 1 tablet by mouth two times a day. 60 tablet 2 04/25/2023 05/06/2023 Discontinued Start: 05-28-2022 End: 06-19-2023 Comment on above: Take 25 mg by mouth three times daily. Take 1 tablet by rika th two times a day. hydroCHLOROthiazide 25 mg / losartan potassium 100 mg oral tablet (20 sources) Thiazide Diuretic, Angiotensin 2 Receptor Kevan Start: 05-07-2017 End: 08-01-2023 Start: 05-07-2017 End: 09-02-2023 Losartan-Hydrochlorothiazide 100-25 mg tablet Discontinued 1 {tbl} PO DAILY December 06, 2022 9:24am August 01, 2023 4:13pm Start: 05-07-2017 End: 08-01-2023 Start: 05-07-2017 End: 08-01-2023 take 1 tablet by mouth once daily Losartan-Hydrochlorothiazide Discontinue d 1 TABLET PO DAILY December 06, 2022 8:24am August 01, 2023 3:13pm Comment on above: Take 1 tablet by rika th once daily. 3 ml insulin glargine 100 un t/ml pen injector (20 sources) Insulin Analog Start: 09-09-2023 End: 10-12-2023 Start: 09-09-2023 End: 10-12-2023 Insulin Glargine (Lantus Lizzy ostar U-100 Insulin) 100 unit/mL (3 mL) insulin pen Discontinued 15 U SC DAILY 15 September 09, 2023 1:00am October 12, 2023 8:17pm Hold if glucose less than 130 mg/dl Start: 09-09-2023 End: 10-12-2023 3 ml insulin lispro 100 unt/ ml pen injector (20 sources) Insulin Analog Start: 09-09-2023 End: 10-12-2023 Start: 09-09-2023 End: 10-12-2023 Insulin Lispro (Humalog Kwik pen Insulin) 100 unit/mL Insulin Pen Discontinued 10 U SC THREE TIMES DAILY BEFORE MEALS 0 September 09, 2023 1:00am October 12, 2023 8:17pm Start: 09-09-2023 End: 10-12-2023 ipratropium bromide 0.2 mg/ml inhalation solution (20 sources) Anticholinergic Start: 02-18-2023 End: 12-20-2023 take 0.5 mg by inhalation every six hours as needed ipratropium (ATROVENT) 0.02 % nebulizer solution Use 2.5 mL via nebulizer four times daily as needed. OVER 5-15 MINUTES FOR WHEEZING OR SHORTNESS OF BREATH 300 mL 2 02/18/2023 12/20/2023 Discontinued (Course of therapy completed) Start: 09-15-2021 End: 12-20-2023 ipratropium (ATROVENT) 0.02 % nebulizer solution Indications: Obstructive chronic bronchitis without exacerbation (HCC) , 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) USE 1 VIAL (2.5 ML) VIA NEBULIZER FOUR TIMES A DAY OVER 5 TO 15 MINUTES FOR WHEEZING OR SHORTNESS OF BREATH 900 mL 3 11/02/2022 Active End: 02-04-2022 IPRATROPIUM BROMIDE INHALATI ON Inhale as instructed. 0 02/04/2022 Discontinued (Course of therapy completed) IPRATROPIUM BROM MEY INHALATION Inhale as instructed. 0 Active Comment on above: Inhale as instructed. USE 1 VIAL (2.5 ML) VIA NEBULIZER FOUR TIMES A DAY OVER 5 TO 15 MINUTES FOR WHEEZING OR SHORTNESS OF BREATH Use 2.5 mL via nebul izer four times daily as needed. OVER 5-15 MINUTES FOR WHEEZING OR SHORTNESS OF BREATH ipratropium/albu terol sulfate (IPRATROPIUM-ALB UTEROL INHALATION) (4 sources) End: take 3 mL by inhalation once daily as needed ipratropium/albuterol sulfate (IPRATROPIUM-ALBUTERO L INHALATION) Inhale 3 mL as instructed once daily as needed (per nebulizer). 0 10/19/2023 Discontinued take 3 mL by inhalat ion once daily as needed ipratropium/albuterol sulfate (IPRATROPIUM-ALBUTEROL INHALATION) Inhale 3 mL as instructed once daily as needed (per nebulizer). 0 Active Comment on above: Inhale 3 mL as instr ucted once daily as needed (per nebulizer). DasiaAcidkody,Saliva-B.Bif -S.Therm 175 mg Capsule (9 sources) Start: 06-08-20 End: 09-25-19 take 1 capsule by mouth twice daily L.Acidkody,Saliva-B.B if-S.Therm 175 mg Capsule Discontinued 1 NMA PO TWICE A DAY 28 01June 08, 2024 1:00am September 24, 2024 1:50pm Lvyz-eoi-chvpsgz for 1 week 10 ml lidocaine hydrochloride 10 mg/ml injection (2 sources) Antiarrhythmic, Amide Local Anesthetic Start: 01-08-20 End: 01-08-20 lidocaine (PF) 10 mg/mL (1 %) 0.5 mL injection (XYLOCAINE) Start: 01-07-2025 End: 01-07-2025 0.5 mL, Injection - FOR ORTH O USE ONLY, ONCE, 1 dose, Starting on Tue01/07/25 at 1030, Until Tue01/07/25 at 1030 losartan potassium 25 mg oral tablet (20 sources) Angiotensin 2 Receptor Kevan Start: 10-12-2023 End: 11-01-2023 take 1 tablet by mouth once daily losartan (COZAAR) 25 mg tablet Take 1 tablet by mouth once daily. Hold if systolic is less than 130 0 10/19/2023 Active Start: 08-01-2023 End: 10-12-2023 Start: 08-01-2023 End: 09-12-2023 take 1 tablet by mouth once daily Losartan 50 mg tablet Discontinued 50 mg PO DAILY August 01, 2023 1:00am September 12, 2023 2:32pm On Hold: Hold until serum potassium drops to 4.0. Start: 08-01-2023 End: 10-19-2023 Comment on above: Take 0.5 tablets by mouth two times a day. Take 1 tablet by rika th once daily. Hold if systolic is less than 130 Magnesium (18 sources) Start: 09-24-2024 End: 11-28-2024 take 2 tablets by mouth once daily Magnesium 200 mg tablet Discontinued 400 mg PO DAILY September 24, 2024 12:00am November 28, 2024 2:11pm Start: 09-24-2024 take 2 tablets by mo [facility] once daily Magnesium 200 mg tablet Active 400 mg PO DAILY September 24, 2024 12:00am Start: 06-08-2024 End: 09-24-2024 take 2 tablets by mouth twice daily Magnesium 200 mg tablet Discontinued 400 mg PO TWICE A DAY 120 June 08, 2024 1:00am September 24, 2024 1:51pm methocarbamol 500 mg oral tablet (6 sources) Muscle Relaxant Start: 03-23-2023 End: 04-19-2023 take 1 tablet by mouth three times daily methocarbamol (ROBAXIN) 500 mg tablet Indications: Chronic bilateral thoracic back pain , Lumbar pain Take 1 tablet by mouth three times daily. 60 tablet 03/23/2023 04/19/2023 Discontinued Comment on above: Take 1 tablet by rika three times daily. metOLazone 2.5 mg oral tablet (20 sources) Thiazide-like Diuretic Start: 10-21-2023 End: 11-01-2023 take 1 tablet by mouth every other day metOLazone (ZAROXOLYN) 2.5 mg tablet Indications: Acute on chronic heart failure with preserved ejection fraction (HCC) Take 1 tablet by mouth every other day. 4 tablet 0 10/21/2023 11/01/2023 Discontinued Start: 02-07-2023 End: 04-19-2023 take 1 tablet by mouth three times weekly, then take 1.5 tablets by mouth two times weekly metOLazone (ZAROXOLYN) 2.5 mg tablet Indications: Lymphedema of both lower extremities , Stasis edema of both lower extremities Take 1 tablet by mouth three times a week. Prior to Lasix as discussed. HOLD PILL STARTING 03/23, start back twice weekly if swelling comes back. 30 tablet 1 03/23/2023 04/19/2023 Discontinued Start: 12-06-2022 End: 06-19-2023 take 1 tablet by mouth every other day Metolazone 2.5 mg tablet Discontinued 2.5 mg PO every other day December 06, 2022 12:00am June 19, 2023 1:51pm Start: 09-17-2022 End: 12-22-2022 take 1 tablet by mouth once daily metOLazone (ZAROXOLYN) 2.5 mg tablet Indications: Lymphedema of both lower extremities , Stasis edema of both lower extremities Take 1 tablet by mouth once daily. Prior to Lasix as discussed. 30 tablet 1 09/17/2022 12/22/2022 Discontinued Comment on above: Take 1 tablet by rika th once daily. Prior to Lasix as discussed. Take 1 tablet by rika th three times a week. Prior to Lasix as discussed. Take 1 tablet by rika th three times a week. Prior to Lasix as discussed. HOLD PILL STARTING 03/23, start back twice weekly if swelling comes back. Take 1 tablet by rika th every other day. 24 hr metoprolol succinate 2 5 mg extended release oral tablet (20 sources) beta-Adrenergic Kevan Start: 02-22-2016 End: 04-28-2018 Start: 02-22-2016 End: 03-08-2018 take 1 tablet by mouth once daily Metoprolol Succinate 25 MG tablet extended release 24 hr Discontinued 25 mg PO DAILY February 22, 2016 12:00am March 08, 2018 1:50pm Start: 02-22-2016 End: 04-28-2018 metroNIDAZOLE 500 mg oral ta blet (20 sources) Nitroimidazole Antimicrobial Start: 11-28-2024 End: 12-17-2024 Start: 06-08-2024 End: 09-24-2024 Start: 06-08-2024 End: 09-24-2024 take 1 tablet by mouth every eight hours Metronidazole 500 mg tablet Discontinued 500 mg PO Q8H 15 5 June 08, 2024 1:00am September 24, 2024 1:50pm Start: 12-09-2022 take 1 tablet by mouth once me troNIDAZOLE (FLAGYL) 500 mg tablet Take 500 mg by mouth one time only. 12/09/2022 Active Start: 12-09-2022 End: 06-19-2023 Start: 12-09-2022 End: 06-19-2023 take 1 tablet by mouth every six hours Metronidazole 500 mg tablet Discontinued 500 mg PO EVERY 6 HOURS 40 December 09, 2022 12:00am June 19, 2023 1:51pm MULTIPLE VITAMINS-MINERALS (2 sources) Start: 06-14-2017 take 1 tablet by mouth once daily DAILY MULTIVITAMIN CAPS One tablet by mouth daily MULTIPLE VITAMINS-MINERALS [id number] Jason Jerez MD MULTIVITAMIN ORAL (4 sources) End: 10-19-2023 take 1 tablet by mouth once daily MULTIVITAMIN ORAL Take 1 tablet by mouth once daily. 0 10/19/2023 Discontinued take 1 tablet by mouth once kathleen y MULTIVITAMIN ORAL Take 1 tablet by mouth once daily. 0 Active Comment on above: Take 1 tablet by rika th once daily. multivitamin with folic acid (THERA, ONE DAILY) 400 mcg (20 sources) Start: 02-22-2016 End: 04-06-2024 multivitamin with folic acid (THERA, ONE DAILY) 400 mcg Take by mouth. 02/22/2016 04/06/2024 Discontinued Start: 02-22-2016 multivitamin w ith folic acid (THERA, ONE DAILY) 400 mcg Take by mouth. 02/22/2016 Active Start: 02-22-2016 multivitamin w ith folic acid (THERA, ONE DAILY) 400 mcg Take by mouth. 0 02/22/2016 Active Comment on above: Take by mouth. Multivitamin With Folic Acid 1 TABLET tablet (9 sources) Start: End: take 1 tablet by mouth once daily Multivitamin With Folic Acid 1 TABLET tablet Discontinued 1 {tbl} PO DAILY February 22, 2016 12:00am April 17, 2024 1:17pm nitrofurantoin, macrocrystals 25 mg / nitrofurantoin, monohydrate 75 mg oral capsule (10 sources) Nitrofuran Antibacterial Start: End: ondansetron 4 mg disintegrating oral tablet (8 sources) Serotonin-3 Receptor Antagonist Start: End: polyethylene glycol 3350 92852 mg powder for oral solution (20 sources) Osmotic Laxative Start: End: Comment on above: Take 17 g by mouth o nce daily. Dissolve dose in 4 - 8 ounces of liquid and take as directed. polyethylene glycol 3350 [id number] mg / potassium chloride 2970 mg / sodium bicarbonate 6740 mg / sodium chloride 5860 mg / sodium sulfate 21996 mg powder for oral solution (4 sources) Osmotic Laxative Start: End: microencapsulated potassium chloride 20 meq extended release oral tablet (20 sources) Start: End: Start: 11-30-2023 End: 02-13-2024 take 15 mL by mouth twice daily potassium chloride 20 mEq/15 mL solution Take 15 mL by mouth two times a day. 11/30/2023 02/13/2024 Discontinued (Adjust Sig - Block E-Cancel) Start: 10-19-2023 End: 11-30-2023 take 1 tablet by mouth twice daily potassium chloride 20 mEq TbER Take 1 tablet by mouth two times a day. 120 tablet 5 11/16/2023 11/30/2023 Discontinued Start: 10-12-2023 End: 11-28-2024 Start: 10-12-2023 End: 09-24-2024 take 1 tablet by mouth twice daily at mealtime Potassium Chloride 20 mEq Tablet,Er Particles/Crystals Discontinued 20 meq PO TWICE DAILY WITH MEALS 60 October 12, 2023 12:00am September 24, 2024 1:51pm End: 10-19-2023 take 40 mEq by mouth once daily POTASSIUM CHLORIDE ORA L Take 40 mEq by mouth once daily. 0 10/19/2023 Discontinued take 40 mEq by mouth once daily POTASSIUM CHLORIDE ORAL Take 40 mEq by mouth once daily. 0 Active Comment on above: Take 40 mEq by mouth once daily. Take 1 tablet by rika th two times a day. predniSONE 10 mg oral tablet (20 sources) Start: 09-03-2023 End: 09-09-2023 Start: 09-02-2023 End: 10-19-2023 predniSONE (DELTASONE) 10 mg tablet Indications: SOB (shortness of breath) Take 5 tabs every morning x 3 days, take 4 tabs every morning x 3 days, take 3 tabs every morning x 3 days, take 2 tabs every morning x 3 days, take 1 tab every morning x 3 days. 45 tablet 0 09/02/2023 10/19/2023 Discontinued Start: 07-27-2023 End: 08-17-2023 Start: 07-13-2023 End: 09-02-2023 predniSONE (DELTASONE) 20 mg tablet Indications: Simple chronic bronchitis (HCC) 1 tablet three times a day for 3 days, then 2 times a day for 3 days, the one daily for 3 days. 18 tablet 0 07/13/2023 09/02/2023 Discontinued Start: 07-01-2023 End: 07-05-2023 take 2 tablets by mouth once daily predniSONE (DELTASONE) 20 mg tablet Indications: COPD with exacerbation (HCC) Take 2 tablets by mouth once daily for 4 days. 8 tablet 07/01/2023 07/05/2023 Start: 06-25-2023 End: 08-17-2023 Start: 06-25-2023 End: 08-17-2023 Prednisone 10 mg tablet Disc ontinued 10 mg PO DAILY June 25, 2023 1:00am August 17, 2023 2:30pm 40 mg for 3 days 30 mg for 3 days, 20 mg for 3 days,and 10 mg for 3 days Start: 06-25-2023 End: 08-17-2023 Prednisone Discontinued 10 M G PO DAILY June 25, 2023 12:00am August 17, 2023 1:30pm 40 mg for 3 days 30 mg for 3 days, 20 mg for 3 days,and 10 mg for 3 days Start: 03-23-2023 End: 04-19-2023 predniSONE (DELTASONE) 10 mg tablet Indications: Chronic bilateral thoracic back pain , Lumbar pain Take 2 tabs po BID for 2 days then 1 tab po BID for 2 days then 1/2 tab po BID for 2 days then 1/2 tab daily for 2 days then stop. TAKE WITH FOOD. DO NOT TAKE ADVIL OR OTHER SAME MEDS WHILE ON THIS 15 tablet 03/23/2023 04/19/2023 Discontinued Start: 07-29-2022 End: 11-29-2022 predniSONE (DELTASONE) 20 mg tablet Indications: COPD with exacerbation (HCC) Take two daily for 5 days. 10 tablet 0 11/29/2022 Active Start: 06-16-2022 End: 12-14-2022 predniSONE (DELTASONE) 10 mg tablet Indications: Chronic obstructive pulmonary disease with acute exacerbation (HCC) Take 2 tabs po BID for 2 days then 1 tab po BID for 2 days then 1/2 tab po BID for 2 days then 1/2 tab daily for 2 days then stop 15 tablet 06/16/2022 12/14/2022 Discontinued (Course of therapy completed) Comment on above: Take 2 tabs po BID f or 2 days then 1 tab po BID for 2 days then 1/2 tab po BID for 2 days then 1/2 tab daily for 2 days then stop Take two daily for 5 days. Take 2 tabs po BID f or 2 days then 1 tab po BID for 2 days then 1/2 tab po BID for 2 days then 1/2 tab daily for 2 days then stop. TAKE WITH FOOD. DO NOT TAKE ADVIL OR OTHER SAME MEDS WHILE ON THIS Take 2 tablets by mo ut once daily for 4 days. [facility] 1 tablet three times a day for 3 days, then 2 times a day for 3 days, the one daily for 3 days. Take 5 tabs every mo rning x 3 days, take 4 tabs every morning x 3 days, take 3 tabs every morning x 3 days, take 2 tabs every morning x 3 days, take 1 tab every morning x 3 days. sennosides (SENNA ORAL) (4 sources) End: take 2 tablets by mouth twice daily as needed for constipation sennosides (SENNA ORAL) Take 2 tablets by mouth two times a day as needed ( NEEDED FOR CONSTIPATION). 0 10/19/2023 Discontinued take 2 tablets by mo ut twice daily as needed for constipation sennosides (SENNA ORAL) Take 2 tablets b y mouth two times a day as needed ( NEEDED FOR CONSTIPATION). 0 Active Comment on above: Take 2 tablets by mo ut two times a day as needed ( NEEDED FOR CONSTIPATION). tiZANidine 2 mg oral tablet (20 sources) Central alpha-2 Adrenergic Agonist Start: 4 End: 4 take 1 tablet by mouth every six hours as needed tiZANidine (ZANAFLEX) 2 mg tablet Take 1 tablet by mouth every 6 hours as needed (muscle spasm). 20 tablet 0 11/02/2023 02/08/2024 Discontinued Start: 09-03-2023 End: 09-03-2023 Start: 09-03-2023 End: 09-03-2023 Tizanidine Discontinued MG F ebruary 2023 12:00am September 03, 2023 11:35am Comment on above: Take 1 tablet by rika th every 6 hours as needed (muscle spasm). traMADol hydrochloride 50 mg oral tablet (20 sources) Opioid Agonist Start: 8 End: 8 traZODone hydrochloride 100 mg oral tablet (20 sources) Serotonin Reuptake Inhibitor Start: 3 End: 3 take 0.5 tablet by mouth once daily at bedtime for sleep traZODone (DESYREL) 100 mg tablet Indications: Insomnia, unspecified type Take 0.5 tablets by mouth daily at bedtime. for sleep 30 tablet 11 09/03/2022 05/23/2023 Discontinued Start: 02-01-2022 End: 06-19-2023 Comment on above: Take 1 tablet by rika th daily at bedtime. for sleep Take 0.5 tablets by mouth daily at bedtime. for sleep Turmeric Root Extract (20 sources) Start: 05-07-2017 End: 03-08-2018 take 1 capsule by mouth once daily Turmeric Root Extract 500 MG capsule Discontinued 500 mg PO DAILY May 07, 2017 12:00am March 08, 2018 1:50pm Start: 05-07-2017 End: 03-08-2018 Start: 05-07-2017 End: 03-08-2018 take 500 mg by mouth once daily Turmeric Root Extract Discontinued 500 MG PO DAILY May 07, 2017 12:00am March 08, 2018 1:50pm Start: 05-07-2017 End: 03-08-2018 take 500 mg by mouth once daily Turmeric Root Extract Discontinued 500 MG PO DAILY May 06, 2017 11:00pm March 08, 2018 12:50pm 7 actuat umeclidinium 0.0625 mg/actuat / vilanterol 0.025 mg/actuat dry powder inhaler (20 sources) Anticholinergic, beta2-Adrenergic Agonist Start: 10-09-2018 End: 10-20-2020 Start: 10-09-2018 End: 10-20-2020 Umeclidinium-Vilanterol (Ano ro Ellipta) 62.5-25 mcg/actuation blister with device Discontinued 1 NMA INHALATION Q24H October 09, 2018 12:00am October 20, 2020 2:22pm Start: 10-09-2018 End: 10-20-2020 Start: 10-09-2018 End: 10-20-2020 Umeclidinium-Vilanterol (Ano ro Ellipta) 62.5-25 mcg/actuation blister with device Discontinued 1 INH INHALATION Q24H October 08, 2018 11:00pm October 20, 2020 1:22pm vancomycin 125 mg oral capsule (4 sources) Glycopeptide Antibacterial Start: 12-19-2024 End: 12-29-2024 Vitamin D (12 sources) Start: 10-01-2016 End: 03-08-2018 take 2500 mg by mouth once daily Vitamin D Discontinued 2500 MG PO DAILY October 01, 2016 12:00am March 08, 2018 1:50pm Start: 10-01-2016 End: 03-08-2018 take 2500 mg by mouth once daily Vitamin D Discontinued 2500 MG PO DAILY September 30, 2016 11:00pm March 08, 2018 12:50pm Vitamin D Mg (9 sources) Start: 10-01-2016 End: 03-08-2018 take 2500 mg by mouth once daily Vitamin D Mg Discontinued 2500 mg PO DAILY October 01, 2016 12:00am March 08, 2018 1:50pm zolpidem tartrate 10 mg oral tablet (20 sources) gamma-Aminobuty sky Acid-ergic Agonist Start: 04-06-2024 End: 10-03-2024 take 1 tablet by mouth at bedtime as needed zolpidem (AMBIEN) 10 mg Indications: Other insomnia Take 1 tablet by mouth at bedtime as needed for up to 180 days. 30 tablet 5 04/06/2024 07/06/2024 Discontinued Start: 02-14-2024 End: 09-24-2024 take 2 tablets by mouth at bedtime as needed for sleep, then take 1 tablet by mouth once daily as needed for sleep Zolpidem 5 mg tablet Discontinued 10 mg PO AT BEDTIME as needed for sleep February 14, 2024 12:00am September 24, 2024 1:50pm On Hold: Hold for 1 week and then discussed with PCP before resumption possible not more than 5 mg daily Start: 02-08-2024 End: 09-24-2024 Start: 10-19-2023 End: 02-08-2024 take 1 tablet by mouth every 30 days at bedtime as needed zolpidem (AMBIEN) 5 mg tablet Indications: Other insomnia Take 1 tablet by mouth at bedtime as needed for up to 30 days. 30 tablet 0 12/28/2023 02/08/2024 Discontinued Comment on above: Take 1 tablet by rika th at bedtime as needed for up to 30 days. (20 sources) Start: 09-24-2024 End: 11-28-2024 Start: 07-19-2024 End: 09-24-2024 Start: 06-08-2024 End: 09-24-2024 Start: 06-08-2024 End: 09-24-2024 Start: 02-14-2024 Start: 11-06-2023 End: 09-24-2024 Start: 11-06-2023 Start: 09-09-2023 End: 10-12-2023 Start: 09-09-2023 Start: 12-06-2022 End: 06-19-2023 Start: 03-16-2018 Start: 10-01-2016 End: 03-08-2018 Start: 02-22-2016 End: 04-17-2024 Start: 02-22-2016 Problems Active Problems Problem Classification Problem Date Documented Date Episodic/Chronic Abdominal pain (20 sources) Left lower quadrant pain; Translations: [Left lower quadrant pain] Onset: 12-17-2022 Episodic Acute bronchitis (20 sources) Acute bronchitis; Translations: [Acute bronchitis, unspecified] 03-08-2018 Episodic Acute myocardial infarction (20 sources) Myocardial infarction; Translations: [Non-ST elevation (NSTEMI) myocardial infarction] 09-03-2023 Chronic Acute posthemorrhagic anemia (1 source) Acute posthemorrhagic anemia; Translations: [Acute posthemorrhagic anemia] 01-11-2025 Episodic Anal and rectal conditions (1 source) Anal fissure; Translations: [Anal fissure, unspecified] 01-07-2025 Episodic Anxiety disorders (2 sources) Anxiety; Translations: [Anxiety disorder, unspecified] 11-30-2023 Chronic Asthma (5 sources) Exercise-induced asthma; Translations: [Exercise induced bronchospasm] Chronic Chronic kidney disease (20 sources) Chronic kidney disease stage 3; Translations: [CKD (chronic kidney disease) stage 3, GFR 30-59 ml/min] Onset: 9 07-30-2018 Chronic Comment on above: Patient is stage III b chronic renal insufficiency. Creatinine in July 09 was 1.99 July 27 when she was in the emergency department it was 2.07 in which rechecked it today after we dropped her hydrochlorothiazide and decreased her losartan. Today it is 1.57 for creatinine with a BUN of 39 and. and clearance of 33. Chronic kidney disease (1 source) Chronic kidney disease; Translations: [Stage 3b chronic kidney disease (HCC)] Onset: Chronic obstructive pulmonary disease and bronchiectasis (20 sources) Chronic obstructive lung disease; Translations: [Chronic obstructive pulmonary disease, unspecified] Onset: 1 08-24-2010 Chronic Complications of surgical procedures or medical care (20 sources) Postoperative seroma; Translations: [Postoperative seroma] 02-03-2021 Episodic Conditions associated with dizziness or vertigo (20 sources) Vertigo; Translations: [Dizziness and giddiness] 05-07-2017 Episodic Conduction disorders (20 sources) Bifascicular block; Translations: [Bifascicular block] Onset: 7 10-11-2016 Chronic Congestive heart failure; nonhypertensive (20 sources) Heart failure with normal ejection fraction; Translations: [Chronic diastolic (congestive) heart failure] Onset: 5 09-12-2023 Chronic Deficiency and other anemia (20 sources) Anemia; Translations: [Anemia, unspecified] 09-02-2023 Episodic Deficiency and other anemia (7 sources) Anemia, unspecified; Translations: [Anemia, unspecified] Onset: 5 09-12-2023 Episodic Deficiency and other anemia (14 sources) Iron deficiency anemia; Translations: [Iron deficiency anemia, unspecified] 10-13-2023 Episodic Deficiency and other anemia (4 sources) Iron deficiency anemia, unspecified; Translations: [Iron deficiency anemia, unspecified] 10-15-2023 Episodic Deficiency and other anemia (1 source) Macrocytic anemia; Translations: [Nutritional anemia, unspecified] 12-23-2023 Episodic Diabetes mellitus with complications (20 sources) Hyperglycemia due to type 2 diabetes mellitus; Translations: [Type 2 diabetes mellitus with hyperglycemia] Onset: 4 10-13-2023 Chronic Disorders of lipid metabolism (20 sources) Hyperlipidemia; Translations: [Hyperlipidemia, unspecified] Onset: 1 04-21-2011 Chronic Diverticulosis and diverticulitis (20 sources) Diverticulosis of colon; Translations: [Diverticulosis of large intestine without perforation or abscess without bleeding] Onset: 4 11-09-2006 Chronic E Codes: Adverse effects of medical drugs (12 sources) Adverse reaction to drug; Translations: [Adverse effect of unspecified drugs, medicaments and biological substances, initial encounter] Onset: 4 06-16-2024 Episodic E Codes: Fall (2 sources) Fall; Translations: [Unspecified fall, initial encounter] 01-07-2025 Episodic Esophageal disorders (20 sources) Gastroesophageal reflux disease; Translations: [Gastro-esophageal reflux disease without esophagitis] 10-13-2023 Chronic Esophageal disorders (20 sources) Achalasia of esophagus; Translations: [Achalasia of cardia] Onset: 5 10-05-2024 Episodic Essential hypertension (20 sources) Hypertensive disorder; Translations: [Benign hypertension] Onset: 0 Resolved: 5 06-14-2017 Chronic Comment on above: Patient's blood pres sure is well-controlled on the meds currently she brought in a list of blood pressures that were excellent in her home environment. Fluid and electrolyte disorders (20 sources) Hypokalemia; Translations: [Hypokalemia] Onset: 0 08-12-2009 Episodic Fracture of upper limb (3 sources) Closed fracture of distal end of radius; Translations: [Unspecified fracture of the lower end of unspecified radius, initial encounter for closed fracture] Onset: 5 01-07-2025 Episodic Gastrointestinal hemorrhage (20 sources) Gastrointestinal hemorrhage; Translations: [Gastrointestinal hemorrhage, unspecified] Onset: 5 12-17-2024 Episodic Hypertension with complications and secondary hypertension (20 sources) Hypertensive heart disease with congestive heart failure; Translations: [Hypertensive heart disease with heart failure] 09-04-2023 Chronic Immunizations and screening for infectious disease (2 sources) Needs influenza immunization; Translations: [Encounter for immunization] Episodic Influenza (20 sources) Influenza due to Influenza A virus; Translations: [Influenza due to other identified influenza virus with other respiratory manifestations] 09-12-2023 Episodic Malaise and fatigue (20 sources) Asthenia; Translations: [Weakness] 09-02-2023 Episodic Mood disorders (20 sources) Depressive disorder; Translations: [Depression] Onset: 4 10-13-2023 Chronic Neoplasms of unspecified nature or uncertain behavior (12 sources) 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; 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] Onset: 2 Episodic Noninfectious gastroenteritis (12 sources) Colitis; Translations: [Noninfective gastroenteritis and colitis, unspecified] Onset: 5 12-17-2024 Episodic Nutritional deficiencies (20 sources) Vitamin D deficiency; Translations: [Vitamin D deficiency, unspecified] Onset: 2 03-06-2012 Chronic Occlusion or stenosis of precerebral arteries (20 sources) Carotid artery stenosis; Translations: [Occlusion and stenosis of unspecified carotid artery] Onset: 7 06-14-2017 Chronic Comment on above: The patient has a ri ght carotid artery bruit and there is a history of moderate disease in both the internal and external right carotid in 2019 and moderate disease on the left side as well. Osteoarthritis (2 sources) Osteoarthritis; Translations: [Polyosteoarthritis, unspecified] Onset: 7 06-14-2017 Chronic Osteoporosis (20 sources) Osteoporosis; Translations: [Age-related osteoporosis without current pathological fracture] Onset: 5 05-20-2005 Chronic Other aftercare (1 source) Long-term current use of drug therapy; Translations: [Other watcher automat long goods (current) drug therapy] 06-06-2024 Episodic Other aftercare (1 source) Post-discharge follow-up; Translations: [Encounter for follow-up examination after completed treatment for conditions other than malignant neoplasm] 01-07-2025 Episodic Other and unspecified benign neoplasm (20 sources) History of polyp of colon; Translations: [Personal history of colonic polyps] 11-09-2006 Episodic Other circulatory disease (20 sources) History of transient ischemic attack; Translations: [Personal history of transient ischemic attack (TIA), and cerebral infarction without residual deficits] 12-17-2020 Episodic Other circulatory disease (20 sources) Low blood pressure; Translations: [Hypotension, unspecified] 08-01-2023 Episodic Comment on above: Patient's blood pres sure is much improved since the losartan was decreased to 50 mg a day and the hydrochlorothiazide was discontinued. Other circulatory disease (16 sources) Hypotension, unspecified; Translations: [Hypotension, unspecified] 08-17-2023 Episodic Other circulatory disease (3 sources) Personal history of transient ischemic attack (TIA), and cerebral infarction without residual deficits; Translations: [Personal history of transient ischemic attack (TIA), and cerebral infarction without residual deficits] 08-18-2023 Episodic Other circulatory disease (20 sources) H/O: heart failure; Translations: [Personal history of other diseases of the circulatory system] 11-03-2023 Episodic Other circulatory disease (13 sources) H/O: hypertension; Translations: [Personal history of other diseases of the circulatory system] 11-03-2023 Episodic Other circulatory disease (4 sources) Personal history of other diseases of the circulatory system; Translations: [Personal history of other diseases of circulatory system] 11-03-2023 Episodic Other circulatory disease (18 sources) Carotid bruit; Translations: [Other specified symptoms and signs involving the circulatory and respiratory systems] 10-17-2024 Episodic Other circulatory disease (1 source) Other specified symptoms and signs involving the circulatory and respiratory systems; Translations: [Other specified symptoms and signs involving the circulatory and respiratory systems] Onset: Episodic Other circulatory disease (1 source) Transient hypotension; Translations: [Hypotension, unspecified] 01-11-2025 Episodic Other connective tissue disease (20 sources) Disorder of shoulder; Translations: [Other muscle spasm] 01-30-2019 Episodic Other connective tissue disease (1 source) Pain in right lower limb; Translations: [Pain in right leg] 09-02-2023 Episodic Other connective tissue disease (3 sources) Pain in right hand; Translations: [Right hand pain] Onset: 5 Episodic Other connective tissue disease (1 source) Complete rotator cuff tear or rupture of right shoulder, not specified as traumatic; Translations: [Complete tear of right rotator cuff, unspecified whether traumatic] Onset: 5 Episodic Other diseases of kidney and ureters (15 sources) Renal mass; Translations: [Other specified disorders of kidney and ureter] Chronic Other diseases of kidney and ureters (1 source) Disorder of kidney and/or ureter; Translations: [Other specified disorders of kidney and ureter] Chronic Other diseases of kidney and ureters (3 sources) Other specified disorders of kidney and ureter; Translations: [Other specified disorders of kidney and ureter] Onset: 2 Chronic Other diseases of kidney and ureters (20 sources) Cyst of kidney; Translations: [Cyst of kidney, acquired] 05-28-2022 Episodic Other diseases of kidney and ureters (1 source) Chronic renal insufficiency; Translations: [Disorder of kidney and ureter, unspecified] 10-19-2023 Episodic Other diseases of kidney and ureters (1 source) Cyst of kidney, acquired; Translations: [Renal cyst] Onset: 5 Episodic Other diseases of veins and lymphatics (3 sources) Lymphedema of bilateral lower limbs; Translations: [Lymphedema, not elsewhere classified] Chronic Other diseases of veins and lymphatics (4 sources) Bilateral lower limb edema; Translations: [Chronic venous hypertension (idiopathic) without complications of bilateral lower extremity] Chronic Other diseases of veins and lymphatics (2 sources) Lymphedema; Translations: [Lymphedema, not elsewhere classified] 11-16-2023 Chronic Other diseases of veins and lymphatics (3 sources) Peripheral venous insufficiency; Translations: [Venous insufficiency (chronic) (peripheral)] Episodic Other gastrointestinal disorders (1 source) Constipation; Translations: [Constipation, unspecified] Episodic Other gastrointestinal disorders (11 sources) Dysphagia; Translations: [Dysphagia, unspecified] 10-25-2023 Episodic Other gastrointestinal disorders (10 sources) History of diverticulitis; Translations: [Personal history of other diseases of the digestive system] 11-17-2023 Episodic Other gastrointestinal disorders (16 sources) Diarrhea; Translations: [Diarrhea, unspecified] 06-16-2024 Episodic Other gastrointestinal disorders (2 sources) Diarrhea, unspecified; Translations: [Diarrhea, unspecified] Onset: Episodic Other hereditary and degenerative nervous system conditions (20 sources) System disorder of the nervous system; Translations: [Other specified extrapyramidal and movement disorders] Onset: 05-20-2005 Chronic Other hereditary and degenerative nervous system conditions (20 sources) Restless legs; Translations: [Restless legs syndrome] 11-09-2006 Chronic Other hereditary and degenerative nervous system conditions (6 sources) Restless legs syndrome; Translations: [Restless legs syndrome (RLS)] 09-12-2023 Chronic Other injuries and conditions due to external causes (10 sources) Food lodged in esophagus; Translations: [Food in esophagus causing other injury, initial encounter] 03-17-2024 Episodic Other injuries and conditions due to external causes (2 sources) Closed injury of head; Translations: [Unspecified injury of head, initial encounter] 01-07-2025 Episodic Other injuries and conditions due to external causes (2 sources) Abrasion; Translations: [Other injury of unspecified body region, initial encounter] 01-07-2025 Episodic Other lower respiratory disease (1 source) Interstitial lung disease; Translations: [Interstitial pulmonary disease, unspecified] 05-17-2022 Chronic Other lower respiratory disease (1 source) Restrictive lung disease; Translations: [Other disorders of lung] Episodic Other lower respiratory disease (20 sources) Dyspnea; Translations: [Shortness of breath] Episodic Comment on above: The patient does not complain of shortness of breath today however O2 sat is depressed at 88% on room air. I have asked her to follow-up with her primary care physician for further evaluation of this newly developed cough that started 48 hours ago. Other lower respiratory disease (1 source) Cough; Translations: [Acute cough] Episodic Other lower respiratory disease (20 sources) Shortness of breath; Translations: [Shortness of breath] 12-06-2022 Episodic Other lower respiratory disease (20 sources) Hypoxia; Translations: [Hypoxemia] 06-19-2023 Episodic Other lower respiratory disease (20 sources) Hypoxemia; Translations: [Hypoxemia] 06-19-2023 Episodic Other lower respiratory disease (20 sources) History of chronic obstructive airway disease; Translations: [Personal history of other diseases of the respiratory system] 08-18-2023 Episodic Other lower respiratory disease (5 sources) Personal history of other diseases of the respiratory system; Translations: [Personal history of other diseases of respiratory system] 08-18-2023 Episodic Other lower respiratory disease (15 sources) Respiratory insufficiency; Translations: [Other abnormalities of breathing] 10-05-2023 Episodic Other lower respiratory disease (5 sources) Other abnormalities of breathing; Translations: [Other respiratory abnormalities] 10-05-2023 Episodic Other lower respiratory disease (2 sources) Other forms of dyspnea; Translations: [Other respiratory abnormalities] 12-20-2023 Episodic Other lower respiratory disease (2 sources) Nodule of lung; Translations: [Solitary pulmonary nodule] 12-20-2023 Episodic Other lower respiratory disease (1 source) Cough; Translations: [Acute cough] 10-30-2022 Episodic Other nervous system disorders (11 sources) Metabolic encephalopathy; Translations: [Metabolic encephalopathy] 06-16-2024 Chronic Other nervous system disorders (2 sources) Carpal tunnel syndrome of right wrist; Translations: [Carpal tunnel syndrome, right upper limb] 12-11-2024 Chronic Other nervous system disorders (1 source) Carpal tunnel syndrome, right upper limb; Translations: [Carpal tunnel syndrome of right wrist] Onset: 5 Chronic Other nervous system disorders (1 source) Other chronic pain; Translations: [Chronic right shoulder pain] Onset: 5 Chronic Other nervous system disorders (1 source) Metabolic encephalopathy; Translations: [Metabolic encephalopathy] Onset: 4 Chronic Other non-traumatic joint disorders (2 sources) Chronic pain of right upper limb; Translations: [Pain in right shoulder] 10-05-2024 Episodic Other nutritional; endocrine; and metabolic disorders (20 sources) Obese class I; Translations: [Obesity, unspecified] Onset: 9 07-30-2018 Chronic Other nutritional; endocrine; and metabolic disorders (16 sources) Hypocalcemia; Translations: [Hypocalcemia] 10-19-2023 Chronic Other nutritional; endocrine; and metabolic disorders (18 sources) Hypomagnesemia; Translations: [Hypomagnesemia] 10-27-2023 Chronic Other nutritional; endocrine; and metabolic disorders (2 sources) Hypocalcemia; Translations: [Hypocalcemia] Onset: 4 Chronic Other nutritional; endocrine; and metabolic disorders (3 sources) Hypomagnesemia; Translations: [Hypomagnesemia] Onset: 4 Chronic Other nutritional; endocrine; and metabolic disorders (13 sources) H/O: diabetes mellitus; Translations: [Personal history of other endocrine, nutritional and metabolic disease] 11-03-2023 Episodic Other nutritional; endocrine; and metabolic disorders (2 sources) Personal history of other endocrine, nutritional and metabolic disease; Translations: [Personal history of other endocrine, metabolic, and immunity disorders] 11-03-2023 Episodic Other screening for suspected conditions (not mental disorders or infectious disease) (3 sources) Radiologic opacity; Translations: [Abnormal findings on diagnostic imaging of other specified body structures] Chronic Other screening for suspected conditions (not mental disorders or infectious disease) (20 sources) Patient encounter status; Translations: [Encounter for screening for other disorder] Episodic Other upper respiratory disease (1 source) Allergic rhinitis; Translations: [Allergic rhinitis, unspecified] Chronic Otitis media and related conditions (1 source) Dysfunction of bilateral eustachian tubes; Translations: [Other specified disorders of Eustachian tube, bilateral] Episodic Peripheral and visceral atherosclerosis (20 sources) Peripheral vascular disease, unspecified; Translations: [Peripheral vascular disease, unspecified] Onset: 2 Chronic Pleurisy; pneumothorax; pulmonary collapse (2 sources) Atelectasis; Translations: [Atelectasis] Episodic Pneumonia (except that caused by tuberculosis or sexually transmitted disease) (3 sources) Pneumonia; Translations: [Pneumonia, unspecified organism] 10-05-2023 Episodic Residual codes; unclassified (5 sources) Insomnia; Translations: [Other insomnia] 10-19-2023 Chronic Residual codes; unclassified (2 sources) Insomnia; Translations: [Insomnia, unspecified] Episodic Residual codes; unclassified (1 source) Peripheral edema; Translations: [Edema, unspecified] Episodic Residual codes; unclassified (20 sources) Edema of lower extremity; Translations: [Localized edema] 05-07-2017 Episodic Residual codes; unclassified (20 sources) Edema of foot; Translations: [Localized edema] 01-28-2021 Episodic Residual codes; unclassified (1 source) Postmenopausal state; Translations: [Asymptomatic menopausal state] 05-06-2023 Episodic Residual codes; unclassified (1 source) Hallucinations; Translations: [Hallucinations, unspecified] 06-06-2024 Episodic Residual codes; unclassified (12 sources) Auditory hallucinations; Translations: [Auditory hallucinations] 07-06-2024 Episodic Residual codes; unclassified (10 sources) Creatinine level - finding 01-07-2023 Episodic Respiratory failure; insufficiency; arrest (adult) (20 sources) Chronic hypoxemic respiratory failure; Translations: [Chronic respiratory failure with hypoxia] Onset: 5 09-02-2023 Chronic Comment on above: 2L NC DURING THE DAY , 4L/NC AT NIGHT Respiratory failure; insufficiency; arrest (adult) (20 sources) Acute respiratory failure; Translations: [Acute respiratory failure with hypoxia] 09-07-2023 Episodic Screening and history of mental health and substance abuse codes (7 sources) Ex-smoker; Translations: [Personal history of nicotine dependence] Onset: 5 Episodic Septicemia (except in labor) (1 source) Sepsis; Translations: [Sepsis, unspecified organism] 01-11-2025 Episodic Spondylosis; intervertebral disc disorders; other back problems (20 sources) Brachial neuritis; Translations: [Radiculopathy, cervical region] Onset: 8 05-24-2008 Episodic Superficial injury; contusion (2 sources) Injury of forehead; Translations: [Contusion of other part of head, initial encounter] 01-07-2025 Episodic Transient cerebral ischemia (20 sources) Transient cerebral ischemia; Translations: [Transient cerebral ischemic attack, unspecified] Onset: 7 06-14-2017 Chronic Unclassified (3 sources) Chronic pain of right upper limb 10-05-2024 Unclassified (1 source) Please call to schedule your appointment Unclassified (5 sources) Colonic diverticulosis/colitis/G I bleed Unclassified (1 source) F/U 3 Month Onset: 5 Urinary tract infections (4 sources) Urinary tract infectious disease; Translations: [Urinary tract infection, site not specified] 11-03-2023 Episodic Viral infection (20 sources) Herpes zoster without complication; Translations: [Zoster without complications] Onset: Resolved: 02-28-2016 Episodic Past or Other Problems Problem Classification Problem Date Documented Da te Episodic/Chronic Calculus of urinary tract (20 sources) Ureteric stone; Translations: [Calculus of ureter] Onset: 06-02-2012 07-13-2021 Episodic Gastritis and duodenitis (20 sources) Acute gastritis; Translations: [Acute gastritis without bleeding] Onset: 03-31-2012 Resolved: 02-08-2024 03-31-2012 Episodic Hemorrhoids (2 sources) Hemorrhoids; Translations: [Unspecified hemorrhoids] Onset: 06-14-2017 06-14-2017 Episodic Nutritional deficiencies (6 sources) Iron deficiency; Translations: [Iron deficiency] Onset: 02-08-2024 10-19-2023 Episodic Other aftercare (1 source) Other detention (current) drug therapy; Translations: [Encounter for long-term current use of medication] Onset: 06-06-2024 Episodic Other aftercare (1 source) Encounter for therapeutic drug level monitoring; Translations: [Encounter for therapeutic drug monitoring] Onset: 02-08-2024 Episodic Other bone disease and musculoskeletal deformities (20 sources) Osteopenia; Translations: [Other specified disorders of bone density and structure, other site] Onset: 05-23-2023 05-06-2023 Episodic Other connective tissue disease (2 sources) Pain in lower limb; Translations: [Pain in leg, unspecified] Onset: 06-14-2017 06-14-2017 Episodic Other connective tissue disease (20 sources) Peripheral enthesopathies and allied syndromes; Translations: [Peripheral enthesopathies and allied syndromes] Onset: 05-20-2005 05-20-2005 Episodic Other connective tissue disease (20 sources) Peripheral enthesopathy; Translations: [Peripheral enthesopathies and allied syndromes] Onset: 05-20-2005 05-20-2005 Episodic Other gastrointestinal disorders (20 sources) Feces contents abnormal; Translations: [Other fecal abnormalities] Onset: 03-31-2012 Resolved: 02-08-2024 03-31-2012 Episodic Other gastrointestinal disorders (1 source) Dysphagia, unspecified; Translations: [Dysphagia, unspecified] Onset: 10-08-2024 Episodic Other injuries and conditions due to external causes (1 source) Unspecified foreign body in respiratory tract, part unspecified causing other injury, initial encounter; Translations: [Unspecified foreign body in respiratory tract, part unspecified causing other injury, initial encounter] Onset: 04-03-2024 Episodic Other non-traumatic joint disorders (1 source) Pain in right shoulder; Translations: [Chronic right shoulder pain] Onset: 10-05-2024 Episodic Residual codes; unclassified (2 sources) Auditory hallucinations; Translations: [Auditory hallucinations] Onset: 06-08-2024 Episodic Residual codes; unclassified (1 source) Hallucinations, unspecified; Translations: [Hallucinations] Onset: 06-06-2024 Episodic Unclassified (20 sources) Neck and back pain 02-04-2022 Unclassified (13 sources) Creatinine level - finding; Translations: [High creatinine] 01-07-2023 Results Test Name Value Interpretation Reference Range Facility Absolute lymphocyte countOrd ered By: Guero Hernandez on 01-11-2025 Lymphocytes Auto (Unsp spec) [#/Vol] 0.56 10*3/uL Low 0.83-4.51 [facility] Anion gap in Serum or Plasma Ordered By: Guero Hernandez on 01-11-2025 Anion gap [Moles/Vol] 18 mmol/L High 5-15 [facility] BUN/creatinine ratioOrdered By: Guero Hernandez on 01-11-2025 Urea nitrogen/Creatinine [Mass ratio] 24.3 mg/mg High 10-20 [facility] Bilirubin, totalOrdered By: Guero Hernandez on 01-11-2025 Bilirubin [Mass/Vol] 0.49 mg/dL 0.00-1.30 [facility] Blood band neutrophil count as percentage of total leukocytesOrdered By: Guero Hernandez on 01-11-2025 Band form neutrophils/100 WBC (Bld) 24 % High 0-5 [facility] Blood basophils/100 leukocyt esOrdered By: Guero Hernandez on 01-11-2025 Basophils/100 WBC (Bld) 1 % 0-[address] [facility] Blood eosinophils/100 leukoc ytesOrdered By: Guero Hernandez on 01-11-2025 Eosinophils/100 WBC (Bld) 1 % 0-5 [facility] Blood lymphocytes/100 leukoc ytesOrdered By: Guero Hernandez on 01-11-2025 Lymphocytes/100 WBC (Bld) 21 % 19-41 [facility] Blood metamyelocytes/100 roberto kocytesOrdered By: Guero Hernandez on 01-11-2025 Metamyelocytes/100 WBC (Bld) 5 % High 0-1 [facility] Blood monocytes/100 leukocyt esOrdered By: Guero Hernandez on 01-11-2025 Monocytes/100 WBC (Bld) 5 % 0-[address] [facility] Blood polychromasia detectio n by light microscopyOrdered By: Guero Hernandez on 01-11-2025 Polychromasia LM Ql (Bld) 1+ [facility] Blood segmented neutrophils/ 100 leukocytesOrdered By: Guero Hernandez on 01-11-2025 Segmented neutrophils/100 WBC (Bld) 42 % Low 47-70 [facility] Carbon dioxide, total [Moles /volume] in Central venous bloodOrdered By: Guero Hernandez on 01-11-2025 CO2 [Moles/Vol] 21.3 mmol/L 21.0-32.0 [facility] Chloride assayOrdered By: Renata Hernandez on 01-11-2025 Chloride [Moles/Vol] 96 mmol/L Low 98-108 [facility] Erythrocyte distribution wid th ratioOrdered By: Guero Hernandez on 01-11-2025 Erythrocyte distribution width (RBC) [Ratio] 14.5 % 11.6-14.6 [facility] Erythrocyte distribution wid th standard deviationOrdered By: Guero Hernandez on 01-11-2025 Erythrocyte distribution width (RBC) [Ratio] 52.8 fl High 35.1-43.9 [facility] Glomerular filtration rate ( GFR) estimation/1.73 sq m using serum, plasma, or whole bOrdered By: Guero Hernandez on 01-11-2025 GFR/1.73 sq M.predicted among non-blacks MDRD (S/P/Bld) [Vol rate/Area] 14 mL/min/{1.73_m2} Low >60 [facility] Hematocrit Auto (Bld) [Volum e fraction]Ordered By: Guero Hernandez on 01-11-2025 Hematocrit (Bld) [Volume fraction] 29.0 % Low 37-47 [facility] Hemoglobin measurementOrdere d By: Guero Hernandez on 01-11-2025 Hemoglobin (Bld) [Mass/Vol] 9.3 g/dL Low 12.0-15. 0 [facility] MCV (mean corpuscular volume ) determinationOrdered By: Guero Hernandez on 01-11-2025 MCV (RBC) [Entitic vol] 99.0 fL 81-[address] [facility] Mean corpuscular hemoglobin (MCH) determinationOrdered By: Guero Hernandez on 01-11-2025 MCH (RBC) [Entitic mass] 31.7 pg 27.0-32.0 [facility] No Panel InformationOrdered By: Guero Hernandez on 01-11-2025 60 U/L High <32 [facility] Platelet countOrdered By: Renata Hernandez on 01-11-2025 Platelets (Bld) [#/Vol] 143 10*3/uL Low 150-450 [facility] Platelet estimateOrdered By: Guero Hernandez on 01-11-2025 Platelets LM Ql (Bld) SLT DEC ADEQ [facility] Potassium measurement (mass/ volume)Ordered By: Guero Hernandez on 01-11-2025 Potassium (Unsp spec) [Mass/Vol] 4.1 mmol/L 3.3-5.1 [facility] RBC Auto (Bld) [#/Vol]Ordere d By: Guero Hernandez on 01-11-2025 RBC (Bld) [#/Vol] 2.93 10*6/uL Low 4.2-5.4 [facility] Review by pathologistOrdered By: Guero Hernandez on 01-11-2025 Pathologist review Kan (Unsp spec) [Interp] November foll [facility] Serum creatinine measurement (mass/volume)Ordered By: Guero Hernandez on 01-11-2025 Creatinine [Mass/Vol] 3.03 mg/dL High 0.70-1.20 [facility] Serum globulin measurementOr dered By: Guero Hernandez on 01-11-2025 Globulin (S) [Mass/Vol] 2.8 g/dL 2.2-4.[address] [facility] Serum glucose measurement (m ass/volume)Ordered By: Guero Hernandez on 01-11-2025 Glucose [Mass/Vol] 88 mg/dL 70-99 [facility] Serum or plasma alanine toney otransferase (ALT) measurementOrdered By: Guero Hernandez on 01-11-2025 ALT [Catalytic activity/Vol] 17 U/L <35 [facility] Serum or plasma albumin magalis urement (mass/volume)Ordered By: Guero Hernandez on 01-11-2025 Albumin [Mass/Vol] 2.6 g/dL Low 3.4-4.8 [facility] Serum or plasma albumin/glob ulin mass ratioOrdered By: Guero Hernandez on 01-11-2025 Albumin/Globulin [Mass ratio] 0.9 {ratio} 0.9-2.4 [facility] Serum or plasma alkaline ilan sphatase measurementOrdered By: Guero Hernandez on 01-11-2025 ALP [Catalytic activity/Vol] 55 U/L 35-104 [facility] Serum or plasma calcium magalis urement (mass/volume)Ordered By: Guero Hernandez on 01-11-2025 Calcium [Mass/Vol] 6.6 mg/dL Low 7.6-11.0 [facility] Serum or plasma urea nitroge n measurement (mass/volume)Ordered By: Guero Hernandez on 01-11-2025 Urea nitrogen [Mass/Vol] 74 mg/dL High 4-19 [facility] Sodium levelOrdered By: Olaf Hernandez on 01-11-2025 Sodium [Moles/Vol] 135 mmol/L 133-145 [facility] Stool gastrointestinal hemog lobin detection by immunologic methodOrdered By: Guero Hernandez on 01-11-2025 Lower GI hemoglobin IA Ql (Stl) Positive Abnormal [facility] Total cell countOrdered By: Guero Hernandez on 01-11-2025 Cells counted Molgen (Bld/Tiss) [#] 100 MANUAL DIFF [facility] Total proteinOrdered By: Lea Hernandez on 01-11-2025 Protein [Mass/Vol] 5.4 g/dL Low 5.9-8.4 [facility] Troponin T.cardiac [Mass/vol ume] in Serum or Plasma by High sensitivity methodOrdered By: Guero Hernandez on 01-11-2025 Troponin T.cardiac High sensitivity method [Mass/Vol] 45 ng/L High <14 [facility] Troponin T.cardiac High sensitivity method [Mass/Vol] 64 ng/L High <14 [facility] White blood cell (WBC) count Ordered By: Guero Hernandez on 01-11-2025 WBC (Bld) [#/Vol] 2.7 10*3/uL Low 4.4-11.0 [facility] Additional Injections: R car pal tunnelon 01-07-2025 Tona Kim PA -C 01/07/2025 10:34 AM Additional Injections: R carpal tunnel for carpal tunnel syndrome 01/07/2025 10:30 AM The procedure site was prepped in the usual sterile fashion. Medications: 3 mg betamethasone acetate-betamethasone sodium phosphate 6 mg/mL Anesthetics: 0.5 mL lidocaine (PF) 10 mg/mL (1 %) Outcome: tolerated well, no immediate complications Post-injection instructions were reviewed with the patient and the patient voiced understanding of these instructions. Informed Consent Consent Obtained: Verbal [place] Protocol A moment to CARE was completed. SIGN IN Sign in communication not applicable due to emergent procedure. Personnel directly involved with the procedure wore the appropriate PPE. Special Equipment: N/A Patient/Surrogate Stated/Verified: Patient name, Date of , Relevant allergies and Intended procedure TIME OUT Relevant labs, photos, and/or imaging studies have been reviewed. Consent documented and matches the intended procedure. Correct side/site marked and visible. Medications required for procedure verified. No fire risk assessment and interventions applicable. No implant(s) inserted. SIGN OUT No specimen collected. [facility] Brain/Head without Contrasto n 01-07-2025 Brain/Head without Contrast [facility] Imaging Services [address] [place] [address] Brain/Head without Contrast MR#: [id number] Acct: [id number] Name: DICK ARTIS Rep #: [id number] : [id number] F [id number] From: Silvia Bee PCP: Dr. Viktoriya Manzo MD Status: REG ER Study: Brain/Head without Contrast Date of Exam: 12/17 10/09 Exam# [id number] Ordering Dr: Rafal Herrera MD PROCEDURE: BRAIN/HEAD WITHOUT CONTRAST 01/07/2025 REASON FOR EXAM: HEAD INJURY ON ANTICOAGULATION TECHNIQUE: BRAIN/HEAD WITHOUT CONTRAST Coronal and Sagittal reconstruction series were provided. One or more dose reduction techniques were used (e.g., Automated exposure control, adjustment of the mA and/or kV according to patient size, use of iterative reconstruction technique. RADIATION DOSE SUMMARY: DLP: [id number] mGycm COMPARISON: 06/06/2024 FINDINGS: Right temporal sulcal hyperdensity (series 2, image 16) likely volume averaging artifact from skull base. There is no acute infarct, intracranial hemorrhage, or mass effect. There is no hydrocephalus or significant midline shift. There is [id number] chronic microvascular ischemic changes and [id number] parenchymal volume loss. No acute, depressed calvarial fractures. Moderate right anterior scalp hematoma. CT/Brain/Head without Contrast IMPRESSION: No acute intracranial process. Moderate right anterior scalp hematoma. No acute calvarial defect. Right temporal sulcal hyperdensity (series 2, image 16) likely volume averaging artifact from skull base. Reading Location: [facility] CC: Dr. Rafal Herrera MD; Dr. 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: [facility] Office Visit (INTMWS ) DICK ARTIS ([id number]) 1935 F Date Time Provider Department 01/07/25 11:40 AM VIKTORIYA MANZO INTPerlitaWS During your visit today, we recorded the following information about you: Pulse Respiration Blood pressure Weight 92/minute 18/minute 126/56 61.5 kg Viktoriya Manzo MD 01/07/2025 11:58 AM Signed We discussed your recent colonoscopy and gastrointestinal symptoms: - Your colonoscopy on the showed small diverticula in the rectosigmoid, sigmoid, and descending colon, as well as two polyps (one in the rectosigmoid and one in the transverse colon). These polyps were sent for biopsy, and you are waiting for the results. Please call Dr. Addie Denson?s office if you do not hear back by Tuesday. - The colonoscopy also revealed grade 3 hemorrhoids, a 3 mm anal fissure, and inflammation in the rectosigmoid area. However, the hemorrhoids were not thought to be the source of your bleeding. - You reported stringy bowel movements and occasional incontinence. Please call Dr. Addie Denson to discuss these symptoms, as you may need additional treatment. 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 Continue monitoring your symptoms and report any changes to Dr. Addie Denson. - Your colonoscopy also showed esophagitis (grade D), a small hiatal hernia, and duodenal polyps. Follow up with Dr. Addie Denson for further management of these findings. We discussed your anemia and magnesium deficiency: - Continue taking iron supplements for at least 3 to 6 months to address your anemia. You can purchase iron over the counter if your prescription is not covered. - Continue taking magnesium supplements, as your magnesium levels were low. These can also be purchased over the counter. We discussed your swollen feet: - Your feet have improved, but you noted occasional swelling. You may wear compression socks during the day to help manage this. Do not wear them at night. We discussed your breathing and yearly checkup: - You were recently seen by Dr. Delvalle for your breathing concerns, and no changes to your treatment were recommended. Continue your current management plan. Next steps: - Call Dr. Adide Denson?s office to discuss your stringy bowel movements, incontinence, and any other concerns. Follow up with him regarding your biopsy results if you do not hear back by Tuesday. - Continue taking your iron and magnesium supplements as directed. - Monitor your symptoms, including bowel movements, swelling in your feet, and breathing, and report any significant changes to your healthcare providers. Viktoriya Manzo MD 01/07/2025 12:45 PM Signed Reason for Visit Follow up HPI Emerson Artis is a 89-year-old female, with a history of achalasia cardia, esophagitis, and anemia, presenting for follow-up after recent hospitalizations and procedures. Emerson has had multiple recent hospitalizations for bleeding and was diagnosed with achalasia cardia by Dr. Addie Denson. She underwent a colonoscopy on the , which revealed multiple small diverticula in the rectosigmoid colon, sigmoid colon, and descending colon, as well as two polyps (one in the rectosigmoid and one in the transverse colon). Large grade 3 hemorrhoids were also noted, but were not believed to be the source of bleeding. An area of inflammation was observed in the rectosigmoid, and a 3 mm fissure was found in the anal canal. Emerson reports no issues with hemorrhoids during bowel movements. Emerson also underwent an upper endoscopy, which revealed grade D esophagitis, achalasia cardia, a small hiatal hernia, and duodenal polyps. She received a Botox injection for esophageal spasms and reports significant improvement in her ability to eat. She is awaiting pathology results for the polyps. Since the colonoscopy, Emerson reports changes in bowel movements, describing them as stringy and noting episodes of incontinence. She was treated for C. difficile with antibiotics for a week prior to the colonoscopy and denies current diarrhea, but continues to experience stringy stools. Emerson also reports recent episodes of significant lower extremity edema, particularly in the left foot, which has since improved. She has been monitoring her diet and wearing compression socks during the day, which she believes has helped reduce the swelling. She inquires about the use of compression socks at night. Emerson is currently taking iron and magnesium supplements, but reports that her insurance, [employer], will no longer cover these medications. She inquires about the necessity of continuing these supplements and whether they are available over the counter. She has a history of anemia and was found to have low magnesium levels. Emerson lives independently, with he (more content not included)... Normal [facility] Office Visit (ORTHWS ) DICK ARTIS ([id number]) 1935 F Date Time Provider Department 01/07/25 8:30 AM TONA KIM During your visit today, we recorded the following information about you: Alie Cr MA 01/07/2025 10:34 AM Signed Patient presents with: Right Shoulder - Follow Up Left Shoulder - Follow Up: EMG results RUE AMB ROOMING INTAKE FLOWSHEET DATA Pain Pain Level: 4 Pain Location: Arm-Right Description: Sharp, Throbbing Duration Amount of Time: 6 Duration Units: Months Frequency: Continuous Intervention/Comfort measure: Aromatherapy to promote a healing environment Patient denies any pain today. Son with patient today. Here to discuss EMG. Tona Kim PA-C 01/07/2025 10:34 AM Signed Tona Kim PA-C Department of Orthopaedics Orthopaedics [address] [place] [id number] Dept: [phone] Dept January 07, 2025 CHIEF COMPLAINT: Follow Up of the Right Shoulder and Follow Up of the Left Shoulder (EMG results RUE) Right Arm Pain: - Persistent pain in right middle and ring fingers, radiating to the tricep region, x several months. - Denies numbness or burning sensations. - Nerve conduction study in November 2024 revealed mild right carpal tunnel syndrome. - Denies interest in surgical intervention. - presents today to discuss EMG results. 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 Carpal tunnel syndrome of right wrist (G56.01) - Nerve conduction study from November showed mild right carpal tunnel syndrome. - Symptoms include pain in the right middle and ring fingers, with radiation to the tricep region. - Administered cortisone injection to the right carpal tunnel. - Advised patient that the injection may take 3-5 days to take effect. - Instructed patient to monitor symptoms over the next week to week and a half and report any improvement. - Discussed that if symptoms improve significantly, carpal tunnel release surgery may be considered. 2. Cervical disc disorder with radiculopathy of cervical region (M50.10) - Symptoms of pain radiating up the arm may be indicative of cervical radiculopathy. - No recent cervical spine x-rays; previous x-rays from 2014 showed degenerative disc disease. - If cortisone injection does not alleviate symptoms, further evaluation by a specialist physicians may be necessary. Ms. Dick Artis was advised as to contrast therapies and/or to take analgesics/anti-inflam matories as needed and all contraindications were reviewed. OBJECTIVE: Ms. Dick Artis is a pleasant 89 year old in no apparent distress. Gen:There were no vitals taken for this visit. nl development, non obese, no deformities ENT: Normocephalic, normal hearing, moist mucosa CV: Pulses:Radial= 2+ and symmetric, capillary refill < 2 secs, no peripheral edema/varicosities Skin: no rash, bruising or lesions. Good turgor. Psych: cooperative and appropriate, alert and oriented x 3, good mood and affect. Musculoskeletal: Supple range of motion of the cervical spine without pain. Spurling signs are negative. No atrophy of the deltoid and shoulder musculature. Right shoulder is nontender to palpation over the SC joint, clavicle and AC joint. No tenderness to palpation over the posterior shoulder, nontender anterior lateral corner of the shoulder and greater tuberosity. Nontender at the bicipital groove and coracoid. Active range of motion is 85 degrees of forward elevation. Tenderness palpation over the right biceps region, no tenderness over the triceps. Some discomfort over the right cubital tunnel, no discomfort on palpation at the medial or lateral epicondyle of the elbow. Mid forearm discomfort noted over the flexor and extensor aspects. Patient is able to gently flex and extend the wrist without any discomfort. Also able to form a full composite fist and extend all digits without any locking or catching. Tinel's is negative at the wrist, negative carpal tunnel compression testing on the right. Sensation is intact in the axillary, radial, median and ulnar nerve distribution In addition to the comprehensive evaluation, assessment and plan outlined above, and as a distinct and separate element to the visit today, separate from discussed EMG results, we have made the determination to proceed with an injection to aid in the management of the patient's condition. We discussed the risks, benefits, alternatives and expected outcomes of this injection in detail, and the patient agreed to proceed. The procedure was performed as detailed below. Additional Injections: R carpal tunnel for carpal tunnel syndrome 01/07/2025 10:30 AM The procedure site was prepped in the usual sterile fashion. Medications: 3 mg b (more content not included)... Normal [facility] Emergency Department Summary on 01-07-2025 Emergency Department Summary [facility] Medical Records Department [address] [place] [address] Emergency Department Summary 01/07/25 MR#: [id number] Acct: [id number] Name: DICK ARTIS Rep #: [id number] : 1935 89 From: Rafal Herrera MD PCP: Dr. Viktoriya Manzo MD Status:REG ER Location: ED HPI HPI - Fall History of Present Illness Chief Complaint: Fall Narrative Narrative: 89-year-old female past medical history of prior stroke on Plavix presents status post mechanical fall prior to arrival. She relates history that she was coming into the house carrying groceries, when she tripped and fell forward. She struck her head and her face but denies loss of consciousness, no neck pain. She fell onto her left wrist as well. She complains of swelling of her right forehead as well as swelling and pain with movement of her left wrist. She is right-hand dominant. She had to crawl on the floor to get her phone, and she called her daughter who in turn called 911 because she could not get up. [facility] Medical History GI (gastrointestinal bleed) Rash Back pain Cancer Thyroid disease Ambulates with cane History of renal disease TIA (transient ischemic attack) Acute diverticulitis Wears glasses Wears dentures Arthritis Low iron Anemia High cholesterol Migraine headache Restless legs Difficulty chewing History of diverticulitis Heartburn Gastric reflux Former smoker On home oxygen therapy Shortness of breath on exertion Chronic cough History of edema History of echocardiogram History of stress test Cardiology follow-up encounter Hypertension Chronic hypoxic respiratory failure History of diabetes mellitus History of hypertension Diverticulitis History of chronic heart failure History of COPD COPD (chronic obstructive pulmonary disease) Anemia Chronic heart failure with preserved ejection fraction (HFpEF) Hyperlipidemia Right lumbar radiculopathy CKD (chronic kidney disease), stage III Hypertension Chronic kidney disease PAD (peripheral artery disease) Renal cyst History of TIA (transient ischemic attack) Bilateral carotid artery stenosis Claudication RLS (restless legs syndrome) Diverticulosis TIA (transient ischemic attack) Vertigo Leg edema Dyslipidemia Home Medications ???Medication ???Instructions ???Recorded ???Last Taken ???Type atorvastatin 40 mg tablet 40 mg PO QHS cholesterol 02/22/16 11/27/24 History clopidogrel 75 mg tablet 75 mg PO DAILY BLOOD THINNER 02/2112/26/24 History albuterol sulfate 90 mcg/actuation 2 puff inhalation Q4H PRN 09/27/24 History aerosol inhaler shortness of breath or wheezing pramipexole 1.5 mg tablet 1.5 mg PO QHS restless leg syndrom e 08/18/23 11/27/24 History polysaccharide iron complex 150 mg 150 mg PO DAILY supplement 30 da ys 10/12/23 12/26/24 Rx iron capsule (Ferrex) #30 caps acetaminophen 500 mg tablet 1,000 mg PO Q6H PRN pain 02/14/24 Unknown History arformoterol 15 mcg/2 mL solution 15 mcg inhalation BID breathing 0 02/14/24 01/01/25 History for nebulization spironolactone 25 mg tablet 25 mg PO DAILY diuretic 02/14/24 0 11/28/24 History cholecalciferol (vitamin D3) 125 125 mcg PO DAILY 30 days #30 caps 06/08/24 11/28/24 Rx mcg (5,000 unit) capsule furosemide 40 mg tablet 40 mg PO BID FLUID RETENTION 09/2411/28/24 History pantoprazole 40 mg tablet,delayed 40 mg PO BID reflux 09/24/2412/16 History release budesonide 0.5 mg/2 mL suspension 0.5 mg inhalation BID breathing 0 11/28/24 01/01/25 History for nebulization carvedilol 25 mg tablet 25 mg PO BID 11/28/24 01/01/25 His tory magnesium oxide 400 mg PO DAILY 11/28/24 11/28/24 History potassium chloride 20 mEq/15 mL 20 meq PO DAILY 11/28/24 11/28/24 History oral liquid cetirizine 10 mg tablet (24Hour 10 mg PO DAILY 12/17/24 Unknown Hi story Allergy) dicyclomine 10 mg capsule 10 mg PO BID #20 caps 12/18/24 Unk nown Rx peg 3350-electrolytes 236 240 ml PO Q10M #4,000 mL 12/18/24 Unknown Rx gram-22.74 gram-6.74 gram-5.86 gram solution (Golytely) duloxetine 60 mg capsule,delayed 60 mg PO DAILY 12/27/24 01/01/25 H istory release oxycodone 5 mg tablet 5 mg PO Q6H PRN pain 3 days #12 Unknown Rx tabs Allergy/AdvReac Type Severity Reaction Status Date / Time lisinopril Allergy edema Verified 12/27/24 15:21 aspirin AdvReac Upset Verified 12/27/24 15:21 Stomach Family History Mother Heart disease Surgical History History of thyroid surgery History of carotid angioplasty History of kidney stones History of basal cell carcinoma excision History of tot (more content not included)... Normal [facility] Wrist min 3 Viewson 01-08-20 Wrist min 3 Views [facility] Imaging Services [address] [place] [address] Wrist min 3 Views MR#: [id number] Acct: [id number] Name: DICK ARTIS Rep #: [id number] : 1935 F 89 From: Blayne Ware MD PCP: Dr. Viktoriya Manzo MD Status: REG ER Study: Wrist min 3 Views Date of Exam: 01/07/25 Exam# [id number] Ordering Dr: Rafal Herrera MD PROCEDURE: WRIST MIN 3 VIEWS 01/07/2025 REASON FOR EXAM: TRAUMA TECHNIQUE: WRIST MIN 3 VIEWS COMPARISON: None FINDINGS: There is a slightly comminuted fracture of the distal radius with mild apex volar angulation, without definite intra-articular extension. There is surrounding soft tissue swelling. No displaced fracture of the distal ulna. Punctate calcifications near the ulnar styloid may represent sequela of calcific pyrophosphate deposition disease. Degenerative changes at the 1st carpometacarpal and triscaphe joints. RAD/Wrist min 3 Views IMPRESSION: Mildly displaced fracture of the left distal radius. Reading Location: [id number] CC: Dr. Rafal Herrera MD; Dr. 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 Viktoriya Manzo MD Status:REG [facility] Patient Name: Dick Artis Procedure Date: 01/01/2025 3:18 PM Date of : 1935 Age: 89 Procedure: Colonoscopy Indications: Hematochezia Providers: Teodoro Real DO Referring MD: Viktoriya Manzo Medicines: Monitored Anesthesia Care Patient Profile: This is an 89 year old female. Refer to note in patient chart for documentation of history and physical. Last Colonoscopy: date unknown. Unable to locate last colonoscopy report. Complications: No immediate complications. Estimated blood loss: None. Procedure: Pre-Anesthesia Assessment: - Prior to the procedure, a History and Physical was performed, and patient medications and allergies were reviewed. The patient is competent. The risks and benefits of the procedure and the sedation options and risks were discussed with the patient. All questions were answered and informed consent was obtained. Patient identification and proposed procedure were verified by the physician in the pre-procedure area. Mental Status Examination: alert and oriented. Airway Examination: normal oropharyngeal airway and neck mobility. Respiratory Examination: clear to auscultation. CV Examination: normal. Prophylactic Antibiotics: The patient does not require prophylactic antibiotics. Prior Anticoagulants: The patient has taken no anticoagulant or antiplatelet agents except for NSAID medication. ASA Grade Assessment: II - A patient with mild systemic disease. After reviewing the risks and benefits, the patient was deemed in satisfactory condition to undergo the procedure. The anesthesia plan was to use monitored anesthesia care (MAC). Immediately prior to administration of medications, the patient was re-assessed for adequacy to receive sedatives. The heart rate, respiratory rate, oxygen saturations, blood pressure, adequacy of pulmonary ventilation, and response to care were monitored throughout the procedure. The physical status of the patient was re-assessed after the procedure. After I obtained informed consent, the scope was passed under direct vision. Throughout the procedure, the patient's blood pressure, pulse, and oxygen saturations were monitored continuously. The adult colonoscope was introduced through the anus and advanced to the cecum, identified by appendiceal orifice and ileocecal valve. The colonoscopy was performed without difficulty. The patient tolerated the procedure well. The quality of the bowel preparation was adequate. The ileocecal valve, appendiceal orifice, and rectum were photographed. Scope In: 3:28:05 PM Scope Withdrawal Time 0 hours 13 minutes 47 seconds Scope Out: 3:49:27 PM Total Procedure Duration Time 0 hours 21 minutes 22 seconds Findings: The perianal and digital rectal examinations were normal. Multiple small and large-mouthed diverticula were found in the recto-sigmoid colon, sigmoid colon and descending colon. A 10 mm polyp was found in the recto-sigmoid colon. The polyp was semi-pedunculated. The polyp was removed with a hot snare. Resection and retrieval were complete. Verification of patient identification for the specimen was done. Estimated blood loss was minimal. A 5 mm polyp was found in the transverse colon. The polyp was sessile. The polyp was removed with a jumbo cold forceps. Resection and retrieval were complete. Verification of patient identification for the specimen was done. Estimated blood loss was minimal. Non-bleeding external and internal hemorrhoids were found during retroflexion, during perianal exam and during digital exam. The hemorrhoids were large and Grade III (internal hemorrhoids that prolapse but require manual reduction). Localized moderate inflammation characterized by erosions, erythema, friability and granularity was found in the recto-sigmoid colon. A 3 mm anal fissure was found in the anal canal. Impression: - Diverticulosis in the recto-sigmoid colon, in the sigmoid colon and in the descending colon. - One 10 mm polyp at the recto-sigmoid colon, removed with a hot snare. Resected and retrieved. - One 5 mm polyp in the transverse colon, removed with a jumbo cold forceps. Resected and retrieved. - Non-bleeding external and internal hemorrhoids. - Localized moderate inflammation was found in the recto-sigmoid colon secondary to ischemic colitis. - Anal fissure. Recommendation: - Discharge patient to home. - Resume previous diet. - Continue present medications. - Await pathology results. - No repeat colonoscopy due to age. Procedure Code(s): --- Professional --- [address], [place] (more content not included)... [facility] MR/[email or web address].ANEon 01-01-2025 MR/POSTOP.[facility] Medical Records Department [address] [place] [address] Anesthesia Postop Eval I 01/01/25 155 MR#: [id number] Acct: [id number] Name: STEFFDICKLAUREN LOPEZ Rep #: [id number] : 1935 89 From: Juan Carlos Grant PCP: Dr. Viktoriya Manzo MD Status:REG [facility] [place] Race: C Location: [place] [address] Anesthesia: Postop Eval I Current Vital Signs Temperature: 97.8 F Pulse Rate: 70 Blood Pressure: 115/52 Respiratory Rate: 16 Pulse Ox: 98 Oxygen Delivery Method: Nasal Cannula Oxygen Flow Rate (L/min): 2 Assessment Airway patent: Yes Spontaneous unlabored respirations: Yes Mental status: Awake and Calm nausea: No Vomiting: No Anesthesia Complication: No Fluid Hydration Crystalloid volume administer (ml): 400 Total IV fluid infused: 400 Progress Note Anesthesia document: Postop Eval 1 completed: Yes 01/01/251557 Date Juan Carlos Lombardo Signature: Date CC: Signed [facility] MR/VALDSHSE6jo 01-01-2025 MR/POSTOPAN2 [facility] Medical Records Department [address] [place] [address] Anesthesia Postop Eval II 01/01/25 1842 MR#: [id number] Acct: [id number] Name: DICK ARTIS Rep #: [id number] : 1935 89 From: Zan Peraza MD PCP: Dr. Viktoriya Manzo MD Status:DEP [facility] [place] [place] Race: C Location: EN Anesthesia Postop Eval I Sum Postop Eval Completion status Anesthesia document: Postop Eval 1 completed: Yes Anesthesia Postop Eval I Summary Anesthesia Postop Eval I Summary: Anesthesia Postop Eval I: Assessment Summary Airway patent Yes 01/01/25 15:58 [email or web address] Spontaneous unlabored Yes 01/01/25 15:58 [email or web address] respirations Mental status Awake,Calm 01/01/25 15:58 [email or web address] nausea No 01/01/25 15:58 [email or web address] Vomiting No 01/01/25 15:58 [email or web address] Anesthesia Postop Eval I: Fluid Summary Crystalloid volume administer 400 01/01/25 15:58 [email or web address] (ml) Colloids volume administered ( ml) Blood Product volume administered (ml) Total IV fluid infused 400 01/01/25 15:58 [email or web address] Anesthesia Postop Eval I: Summary Notes Anesthesia Complication No 01/01/25 15:58 [email or web address] Anesthesia Complication Comment: Post-operative progress note Anesthesia: Postop Eval II Evaluation Mental status: Awake Pain Level: 0 nausea: No Vomiting: No Complications Anesthesia Complication: No 01/01/25 184 Date Zan Peraza MD Cosigner Signature: Date CC: Signed Normal [facility] Surgery Specimen Level Joycelyn 01-01-2025 Surgery Specimen Level IV -------- ---- Patient Age/Sex Location Account Attending Physician ---- DICK ARTIS 89/F EN [id number] Teodoro Real DO ---- Specimen: [id number] Received: 01/02/25 Status: ANGELA Bernstein Num: [id number] Spec Type: COLON BX Subm Dr: Teodoro Real DO HEADER OPERATION: Colonoscopy, biopsy, polypectomy PRE-OP DIAGNOSIS: GI bleed TISSUE SUBMITTED: A- Hepatic flexure polyp biopsy, B- Sigmoid colitis biopsy, C- Sigmoid colon polyp ---- MICROSCOPIC DIAGNOSIS A. Colon, hepatic flexure, polyp, biopsy: Tubular adenoma. B. Sigmoid colon, biopsy: Hyperplastic crypt change with prolapse features and patchy acute inflammation. Reactive epithelial change. Negative for dysplasia (deeper sections examined). C. Sigmoid colon, polyp, biopsy: Hyperplastic polyp with prolapse features. MICROSCOPIC DESCRIPTION Slides are reviewed. GROSS DESCRIPTION A. Received in fixative is one container labeled with the patient's name and designated Hepatic flexure polyp biopsy. The specimen consists of three irregular fragments of light figueroa soft tissue that in aggregate measure <0.1 to 0.4 cm. The specimen is totally submitted in one cassette. B. Received in fixative is one container labeled with the patient's name and designated Sigmoid colitis biopsy. The specimen consists of two irregular fragments of light figueroa soft tissue that in aggregate measure 0.4 and 0.6 cm. The specimen is totally submitted in one cassette. C. Received in fixative is one container labeled with the patient's name and designated Sigmoid colon polyp. The specimen consists of two irregular fragments of light figueroa soft tissue that in aggregate measure 0.4 and 0.7 x 0.5 x 0.3 cm (margin inked black). The specimen is totally submitted in one cassette. Brian 01/02/2025 [facility]:[id number] ---- Patient Age/Sex Location Account Attending Physician ---- DICK ARTIS 89/F DOMITILA [id number] Teodoro Real DO ---- Signed (signature on file) Dr. Maria T Calle MD 01/08/25 1145 ---- Normal [facility] Comment on above: Performed By: #### P SUIV ####[facility] [address] [facility]. [place], [place], [address] MR/PATMacey 12-27-2024 MR/PAT.[facility] Medical Records Department [address] [place] [address] PAT - Anesthesia 12/27/24 1554 MR#: [id number] Acct: [id number] Name: DICK ARTIS Rep #: [id number] : 1935 89 From: Vin Farias MD PCP: Dr. 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 When Was Last Pacemaker Check QUESTION #4 FULL TEXT: You/Your Family Experience fever (hyperthermia) with Anesthesia Last Oral Intake Last Oral intake: Last Oral Intake NPO since Meds taken in AM with sips of water? Meds patient instructed to take am of surgery PONV PONV - artist relationship manager: PONV - artist relationship manager Female Yes 12/27/24 15:28 HX of Motion Sickness No 12/27/24 15:28 HX of N/V After Surgery No 12/27/24 15:28 Non-Smoker Yes 12/27/24 15:28 Duration of Surgery greater No 12/27/24 15:28 than 60 minutes Number of Risk Factors 2 12/27/24 15:28 PONV Score Moderate Risk 12/27/24 15:28 Height Weight Height Weight: Anesthesia: Height Weight Height 5 ft 2 in 12/17/24 04:44 Respiratory Assessment Respiratory Assessment - artist relationship manager: Respiratory Tract Infection Hx - artist relationship manager Hx Respiratory Tract Infection No 12/27/24 15:28 STOP Sleep Apnea STOP Sleep Apnea - artist relationship manager: STOP Sleep Apnea - artist relationship manager Hx Hypertension Yes 12/27/24 15:28 Hx Sleep Apnea No 12/27/24 15:28 CPAP No 09/27/24 07:05 BIPAP No 11/03/23 18:31 Do you snore loudly (louder No 12/27/24 15:28 than talking or can be heard Do you often feel tired/ No 12/27/24 15:28 fatigued/ sleepy during daytime? Has anyone observed you stop No 12/27/24 15:28 breathing during sleep? STOP Results Negative 12/27/24 15:28 QUESTION #5 FULL TEXT : Do you snore loudly (louder than talking or can be heard through closed doors)? 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 Specify any problems Hx of Preganancy in last 3 No 12/27/24 15:28 Months Nurse Filling Out Transfusion [email or web address] 12/27/24 15:28 Questions: Date: 12/27/24 12/27/24 15:28 Time: 15:34 12/27/24 15:28 Patient unable to answer at this time (ie. 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 Hx Now No 12/27/24 15:28 Gestational Age (in weeks): EDC: Hx Hx Para Hx Section SAB No 12/27/24 15:28 [facility] Medical History (Updated 12/27/24 @ 15:39 by Joseph Griffiths) Rash Back pain Cancer Thyroid disease Ambulates with cane History of renal disease TIA (transient ischemic attack) Acute diverticulitis Wears glasses Wears dentures Arthritis Low iron Anemia High cholesterol Migraine headache Restless legs Difficulty chewing History of diverticulitis Heartburn Gastric reflux Former smoker On home oxygen therapy Shortness of breath on exertion Chronic cough History of edema History of echocardiogram History of stress test Cardiology follow-up encounter Hypertension Chronic hypoxic respiratory failure History of diabetes mellitus History of hypertension Diverticulitis History of chronic heart failure History of COPD COPD (chronic obstructive pulmonary disease) Anemia Chronic heart failure with preserved eject (more content not included)... Normal [facility] Calprotectin, Stoolon [address] 2110 ug/g Abnormal 0-120 [facility] Comment on above: Result Comment: Re sults verified by repeat testing Concentration Interpretation Follow-Up < 5 - 50 ug/g Normal None >50 -120 ug/g Borderline Re-evaluate in 4-6 weeks >120 ug/g Abnormal Repeat as clinically indicated Performed at: - [facility] [id number] Answering Service Telephone Operator: José Felder MD, Phone: [phone] Performed By: #### L 3546.2145, K975.4447, E150.0392, M100.212 ####[facility] [address] [place], [place], [address] US KIDNEY/BLADDERon 12-20-19 US KIDNEY/BLADDER * * *Final Report* * * DATE OF EXAM: Dec 19 2024 1:33PM [facility] 1055 - US KIDNEY/BLADDER / PROCEDURE REASON: multiple diagnoses * * * * Physician Interpretation * * * * EXAMINATION: RENAL ULTRASOUND CLINICAL HISTORY: Renal lesions TECHNIQUE: Sonography of the kidneys and urinary bladder was performed. Images were obtained and stored in a permanent archive. MQ: UR_1 COMPARISON: 04/21/2022 CT 06/06/2024 CT RESULT: Right Kidney: -Renal length: 9.5 cm -Parenchyma: Normal parenchymal echogenicity. Normal parenchymal thickness. -Collecting system: No hydronephrosis. -Calculus: No echogenic, shadowing calculus. -Lesion: Superior cyst of 4.1 cm. Midpole cyst of 4.8 cm. Left Kidney: -Renal length: 11.6 cm -Parenchyma: Normal parenchymal echogenicity. Normal parenchymal thickness. -Collecting system: No hydronephrosis. -Calculus: No echogenic, shadowing calculus. -Lesion: None. Bladder: Normal sonographic appearance. IMPRESSION: Right renal cysts. No hydronephrosis 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: [facility] Transcribe Date/Time: Dec 19 2024 3:32P Dictated by : COLBY PUCKETT MD This examination was interpreted and the report reviewed and electronically signed by: COLBY PUCKETT MD on Dec 19 2024 3:37PM EST [id number] Normal [facility] US Kidney - bilateral and Ur inary bladderon 12-19-2024 IMPRESSION: Right renal cysts. No hydronephrosis 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: [facility] Transcribe Date/Time: Dec 19 2024 3:32P Dictated by : COLBY PUCKETT MD This examination was interpreted and the report reviewed and electronically signed by: COLBY PUCKETT MD on Dec 19 2024 3:37PM EST DIVISION OF RADIOLOGY * * *Final Report* * * DATE OF EXAM: Dec 19 2024 1:33PM [facility] 1055 - US KIDNEY/BLADDER / PROCEDURE REASON: multiple diagnoses * * * * Physician Interpretation * * * * EXAMINATION: RENAL ULTRASOUND CLINICAL HISTORY: Renal lesions TECHNIQUE: Sonography of the kidneys and urinary bladder was performed. Images were obtained and stored in a permanent archive. MQ: UR_1 COMPARISON: 04/21/2022 CT 06/06/2024 CT RESULT: Right Kidney: -Renal length: 9.5 cm -Parenchyma: Normal parenchymal echogenicity. Normal parenchymal thickness. -Collecting system: No hydronephrosis. -Calculus: No echogenic, shadowing calculus. -Lesion: Superior cyst of 4.1 cm. Midpole cyst of 4.8 cm. Left Kidney: -Renal length: 11.6 cm -Parenchyma: Normal parenchymal echogenicity. Normal parenchymal thickness. -Collecting system: No hydronephrosis. -Calculus: No echogenic, shadowing calculus. -Lesion: None. Bladder: Normal sonographic appearance. DIVISION OF RADIOLOGY Provider, [facility] - 12/19/2024 * * *Final Report* * * DATE OF EXAM: Dec 19 2024 1:33PM [facility] 1055 - US KIDNEY/BLADDER / PROCEDURE REASON: multiple diagnoses * * * * Physician Interpretation * * * * EXAMINATION: RENAL ULTRASOUND CLINICAL HISTORY: Renal lesions TECHNIQUE: Sonography of the kidneys and urinary bladder was performed. Images were obtained and stored in a permanent archive. MQ: UR_1 COMPARISON: 04/21/2022 CT 06/06/2024 CT RESULT: Right Kidney: -Renal length: 9.5 cm -Parenchyma: Normal parenchymal echogenicity. Normal parenchymal thickness. -Collecting system: No hydronephrosis. -Calculus: No echogenic, shadowing calculus. -Lesion: Superior cyst of 4.1 cm. Midpole cyst of 4.8 cm. Left Kidney: -Renal length: 11.6 cm -Parenchyma: Normal parenchymal echogenicity. Normal parenchymal thickness. -Collecting system: No hydronephrosis. -Calculus: No echogenic, shadowing calculus. -Lesion: None. Bladder: Normal sonographic appearance. IMPRESSION IMPRESSION: Right renal cysts. No hydronephrosis 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 Transcribe Date/Time: Dec 19 2024 3:32P Dictated by : COLBY PUCKETT MD This examination was interpreted and the report reviewed and electronically signed by: COLBY PUCKETT MD on Dec 19 2024 3:37PM EST [facility] Radiology Study observation (narrative) [facility] US Kidney - bilateral and Ur inary bladderOrdered By: [facility]cf Provider on 12-19-2024 [facility] Absolute lymphocyte countOrd ered By: Sima Wheeler on 12-18-2024 Lymphocytes Auto (Unsp spec) [#/Vol] 0.79 10*3/uL Low 0.83-4.51 [facility] Absolute neutrophil countOrd ered By: Simalayo Wheeler on 12-18-2024 Neutrophils (Bld) [#/Vol] 5.2 10*3/uL 2.0-7.7 [facility] Automated lymphocyte count a s percentage of total leukocytesOrdered By: Sima Wheeler on 12-18-2024 Lymphocytes/100 WBC Auto (Unsp spec) 11.0 % Low 19-41 [facility] Basophil percentageOrdered B y: Sima Wheeler on 12-18-2024 Basophils/100 WBC (Bld) 0.4 % 0-[address] [facility] Blood manual differential co mment interpretation (narrative result)Ordered By: Sima Wheeler on 12-18-2024 Manual differential comment Kan (Bld) [Interp] SCANNED [facility] CBC W/Diff, Automatedon 06-0 SMEAR COMMENT SCANNED Normal [facility] Comment on above: Performed By: #### L 500.3400 #### [facility] Laboratory [address] [facility]. [place], [place], [id number] CDIFF (PCR)on 12-18-2024 CDIFF A positive C. difficile molecular test does not differentiate between an active C. difficile infection and C. difficile colonization. Use clinical judgement and paired toxin/antigen testing to identify true infection and need for treatment. C diff DNA Spec Ql JOSE+probe Reference Range: Negative Cepheid GeneXpert: polymerase chain reaction (PCR) 027 027 NAP1-B1 Presumptive Negative *for epidemiolologic???use C. Diff PCR A Positive-Toxigenic C. Difficile Detected A Normal [facility] Comment on above: Performed By: #### L 7000.0700, M100.6795, M100.6796, M100.637 ####[facility] [address] [place], [place], [id number] Calprotectin stoolOrdered By : Sima Wheeler on 12-18-2024 Calprotectin stool 2110 ug/g High 0-120 [facility] Comment on above: Results verified b y repeat testingConcentration Interpretation Follow-Up< 5 - 50 ug/g Normal None>50 -120 ug/g Borderline Re-evaluate in 4-6 weeks >120 ug/g Abnormal Repeat as clinically indicatedPerformed at: BN - [facility] [address] [id number] Director: José Felder MD, Phone: [phone] Clostridium Diff Toxin/Agon 12-18-2024 CDIFF (EIA) Interpretation of C. diff by EIA Method POS Antigen and POS Toxin = Positive for Toxigenic C. difficile gene and active toxin production IS detected. Consistent with true infection. C diff Stl Ql Copy of report sent to Infection Control Printer MS#[id number] 12/18/24 6993 MLOLLO. C diff Stl Ql C. difficile Antigen A Positive C. diff A/B Antigen A C. difficile Toxin A Positive-Toxigenic C. Difficile (EIA) A Toxigenic C. difficile Normal [facility] Comment on above: Performed By: #### L 7000.0700, M100.6795, M100.6796, M100.637 ####[facility] [address] [place], [place], [id number] Clostridium difficile detect ion by polymerase chain reactionOrdered By: Sima Wheeler on 12-18-2024 C. difficile DNA JOSE+probe Ql (Unsp spec) [facility] ENTERIC PATHOGEN PANEL STOOL on 12-18-2024 EP PANEL Normal Reference Ran ge = Not Detected Nucleic acid amplification test method Not detected for Campylobacter group, Salmonella species, Shigella species, Vibrio Group, Yersinia enterocolitica, EHEC (Shiga Toxin 1, Shiga Toxin 2), Norovirus Gl/Gll, and Rotavirus A. Other common stool pathogens are not detected on this panel include: Aeromonas/Plesiomonas or parasites. Order testing for these organisms separately if suspected. This is an amplified DNA test which makes it both specific and sensitive. CAMPYLOBACTER Not Detected Norovirus Not Detected Rotavirus Not Detected Salmonella Not Detected Shiga Toxin Not Detected Shigella sp. Not Detected VIBRIO Not Detected Yersinia Not Detected Normal [facility] Comment on above: Performed By: #### L 7000.0700, M100.6795, M100.6796, M100.637 ####[facility] [address] [place], [address] Eosinophil percentageOrdered By: Sima Wheeler on 12-18-2024 Eosinophils/100 WBC (Bld) 3.5 % 0-5 [facility] Erythrocyte distribution wid th ratioOrdered By: Sima Wheeler on 12-18-2024 Erythrocyte distribution width (RBC) [Ratio] 13.8 % 11.6-14.6 [facility] Erythrocyte distribution wid th standard deviationOrdered By: Simalayo Wheeler on 12-18-2024 Erythrocyte distribution width (RBC) [Ratio] 51.0 fl High 35.1-43.9 [facility] Gastroenterology Visit Repor ton 12-18-2024 Gastroenterology Visit Report [facility] [address] [place] [address] OFFICE VISIT Date of Service: 12/18/24 MR#: [id number] Acct: [id number] Name: DICK ARTIS Rep #: [id number] : 1935 Provider: INDIRA Cox Age/Sex: 89/F [place] [facility] Status: Signed Intake Vital Signs 12/17/24 04:44 Height 5 ft 2 in Intake Visit Reasons: ER FU RECTAL BLEEDING INFLAMMATION Chief Complaint: BRBPR Allergies lisinopril Allergy (Verified 12/17/24 04:43) edema aspirin Adverse Reaction (Verified 12/17/24 04:43) Upset Stomach Patient : No Have you fallen in the past year?: No Nurse's Note: OV 12/18/24 Pt here for f/u and reports gas, bloating, abdominal pain, diarrhea and constipation. Pt continues pantoprazole daily. [facility] Medical History History of chronic heart failure Cancer Thyroid disease Ambulates with cane History of renal disease TIA (transient ischemic attack) Acute diverticulitis Wears glasses Wears dentures Arthritis Low iron Anemia High cholesterol Migraine headache Restless legs Difficulty chewing History of diverticulitis Heartburn Gastric reflux Former smoker On home oxygen therapy Shortness of breath on exertion Chronic cough History of edema History of echocardiogram History of stress test Cardiology follow-up encounter Hypertension Chronic hypoxic respiratory failure History of diabetes mellitus History of hypertension Diverticulitis History of COPD COPD (chronic obstructive pulmonary disease) Anemia Chronic heart failure with preserved ejection fraction (HFpEF) Hyperlipidemia Right lumbar radiculopathy CKD (chronic kidney disease), stage III Hypertension Chronic kidney disease PAD (peripheral artery disease) Renal cyst History of TIA (transient ischemic attack) Bilateral carotid artery stenosis Claudication RLS (restless legs syndrome) Diverticulosis TIA (transient ischemic attack) Vertigo Leg edema Dyslipidemia Surgical History History of thyroid surgery History of carotid angioplasty History of kidney stones History of basal cell carcinoma excision History of total hysterectomy Family History Mother Heart disease Social History household members: none housing: house Smoking Status: Former smoker how long ago did patient quit smokin years ago alcohol intake: current alcohol intake frequency: holidays/special occasions only details: rare substance use type: does not use caffeine: Yes Type: coffee Number of servings: 1 HPI HPI Chief Complaint: BRBPR Details: DICK ARTIS, is a 89 F who presents to the office today for f/u. [facility] established in Aug 2023 during hospitalization for NSTEMI and COPD exacerbation. Found to have a down trending hemoglobin and underwent EGD. EGD 09.16.23; - LA Grade D erosive esophagitis with bleeding. Treated with a heater probe. - Non-bleeding gastric ulcers with no stigmata of bleeding. Biopsied. - Acute duodenitis. Biopsied EGD 04.19.24; - Abnormal esophageal motility, consistent with aperistalsis. Dilated. - Small hiatal hernia. - Gastric mucosal variant. Biopsied. - A few duodenal polyps. Resected and retrieved. *Start amitriptyline 10 mg daily but discontinued due to side effects. [facility] admission 06.06.24-06.08.24 with severe hypomagnesia, hypocalcemia and diverticulitis Last OV 08.13.24 Pt continues with swallowing issues. Scheduled for EGD with botox EGD 3.13.25; - Achalasia. Injected with botulinum toxin. - No gross lesions in the entire stomach. - No gross lesions in the first portion of the duodenum. - No specimens collected. [facility] ED with two episodes BRBPR over the past week. Pt on Eliquis. CT showing diverticulosis, moderate diffuse thickening of the colon, more prominent in the rectosigmoid colon, probably colitis without evidence of perforation pneumonitis coli. No active bleeding. small hiatal hernia and diffuse thickening of the stomach suggestive of gastritis. OV 6.3.25 Pt continues with abdominal pain. Pain is in the LLQ and a 6/10. She feels constipated this week but last week was having diarrhea. She has had no further episodes of BRBPR. ROS Const Constitutional: Positive for fatigue; No fever(s) or weight change ENT ENT: No difficulty swallowing Gastro GI: Positive for abdominal pain, bloating, change in bowel habits, constipation, diarrhea, heartburn and excessive flatus; No belching, change in stool character, coffee ground emesis, cramping, difficulty swallowing, feeling full early, incontinent of stools, Vomiting blood/hematemesis, Blood i (more content not included)... Normal [facility] Hematocrit Auto (Bld) [Volum e fraction]Ordered By: Sima Wheeler on 12-18-2024 Hematocrit (Bld) [Volume fraction] 34.6 % Low 37-47 [facility] Hemoglobin measurementOrdere d By: Sima Wheeler on 12-18-2024 Hemoglobin (Bld) [Mass/Vol] 10.9 g/dL Low 12.0-15. 0 [facility] Immature granulocytes/100 WB C Auto (Bld)Ordered By: Sima Wheeler on 12-18-2024 Immature granulocytes/100 WBC (Bld) 0.700 % 0.0-0.9 [facility] Comment on above: IG% - Immature Granu locytes (promyelocytes, myelocytes and metamyelocytes) > 1% indicates that a LEFT SHIFT is Present. MCV (mean corpuscular volume ) determinationOrdered By: Sima Wheeler on 12-18-2024 MCV (RBC) [Entitic vol] 100.6 fL High 81-[address] [facility] Mean corpuscular hemoglobin (MCH) determinationOrdered By: Sima Wheeler on 12-18-2024 MCH (RBC) [Entitic mass] 31.7 pg 27.0-32.0 [facility] Mean corpuscular hemoglobin concentration (MCHC) determinationOrdered By: Sima Wheeler on 12-18-2024 MCHC (RBC) [Mass/Vol] 31.5 g/dL Low 32-36 [facility] Mean platelet volume determi nationOrdered By: Sima Wheeler on 12-18-2024 Platelet mean volume (Bld) [Entitic vol] 10.3 fL 6.2-12.0 [facility] Monocyte percentageOrdered B y: Sima Wheeler on 12-18-2024 Monocytes/100 WBC (Bld) 11.7 % High 0-[address] [facility] Neutrophil percentageOrdered By: Sima Wheeler on 12-18-2024 Neutrophils/100 WBC (Bld) 72.7 % High 47-70 [facility] Nucleated red blood cell per centageOrdered By: Sima Wheeler on 12-18-2024 Nucleated RBC/100 WBC (Bld) [Ratio] 0 % 0-5 [facility] Platelet countOrdered By: Rosalia Wheeler on 12-18-2024 Platelets (Bld) [#/Vol] 244 10*3/uL 150-450 [facility] RBC Auto (Bld) [#/Vol]Ordere d By: Sima Wheeler on 12-18-2024 RBC (Bld) [#/Vol] 3.44 10*6/uL Low 4.2-5.4 [facility] Stool Clostridium difficile detectionOrdered By: Sima Wheeler on 12-18-2024 C. difficile Ql (Stl) Toxigenic C. difficile Abnormal [facility] White blood cell (WBC) count Ordered By: Sima Wheeler on 12-18-2024 WBC (Bld) [#/Vol] 7.2 10*3/uL 4.4-11.0 [facility] Absolute lymphocyte countOrd ered By: Tobias Garcia on 12-17-2024 Lymphocytes Auto (Unsp spec) [#/Vol] 1.14 10*3/uL 0.83-4.51 [facility] Absolute neutrophil countOrd ered By: Tobias Garcia on 12-17-2024 Neutrophils (Bld) [#/Vol] 5.6 10*3/uL 2.0-7.7 [facility] Activated partial thrombopla stin time (aPTT) in platelet poor plasma by coagulation aOrdered By: Tobias Garcia on 12-17-2024 aPTT Coag (PPP) [Time] 24.3 s 24.1-36.2 [facility] Anion gap in Serum or Plasma Ordered By: Tobias Garcia on 12-17-2024 Anion gap [Moles/Vol] 13 mmol/L 5-15 [facility] Automated lymphocyte count a s percentage of total leukocytesOrdered By: Tobias Garcia on 12-17-2024 Lymphocytes/100 WBC Auto (Unsp spec) 14.4 % Low 19-41 [facility] BUN/creatinine ratioOrdered By: Tobias Garcia on 12-17-2024 Urea nitrogen/Creatinine [Mass ratio] 35.9 mg/mg High 10-20 [facility] Basic Metabolic Profile (BMP )on 12-17-2024 BUN/CRE 35.9 RATIO High 10-20 [facility] Comment on above: Performed By: #### M 100.7900, L300.3900, L300.4310, L500.2500, L500.3400, L100.0100 ####[facility] [address] [place], [address] Calcium [Mass/Vol] 9.0 mg/dL Normal 7.6-11.0 [facility] Comment on above: Performed By: #### M 100.7900, L300.3900, L300.4310, L500.2500, L500.3400, L100.0100 ####[facility] [address] [place], [address] Chloride [Moles/Vol] 98 mmol/L Normal 98-108 [facility] Comment on above: Performed By: #### M 100.7900, L300.3900, L300.4310, L500.2500, L500.3400, L100.0100 ####[facility] [address] [place], [address] CO2 [Moles/Vol] 32.5 mmol/L High 21.0-32.0 [facility] Comment on above: Performed By: #### M 100.7900, L300.3900, L300.4310, L500.2500, L500.3400, L100.0100 ####[facility] [address] [place], [address] Creatinine [Mass/Vol] 1.45 mg/dL High 0.70-1.20 [facility] Comment on above: Performed By: #### M 100.7900, L300.3900, L300.4310, L500.2500, L500.3400, L100.0100 ####[facility] [address] [place], [address] ECRCL 23.74 ml/min Low 50-250 [facility] Comment on above: Performed By: #### M 100.7900, L300.3900, L300.4310, L500.2500, L500.3400, L100.0100 ####[facility] [address] [place], [address] GAP 13 Normal 5-15 [facility] Comment on above: Performed By: #### M 100.7900, L300.3900, L300.4310, L500.2500, L500.3400, L100.0100 ####[facility] [address] [place], [address] GFR/1.73 sq M.predicted among non-blacks MDRD (S/P/Bld) [Vol rate/Area] 35 mL/min/{1.73_m2} Low >60 [facility] Comment on above: Result Comment: mL/m in/1.73m2 CKD-EPI Creatinine Equation (2020) Performed By: #### M 100.7900, L300.3900, L300.4310, L500.2500, L500.3400, L100.0100 ####[facility] [address] [place], [address] Glucose [Mass/Vol] 110 mg/dL High 70-99 [facility] Comment on above: Performed By: #### M 100.7900, L300.3900, L300.4310, L500.2500, L500.3400, L100.0100 ####[facility] [address] [place], [address] Potassium [Moles/Vol] 4.0 mmol/L Normal 3.3-5.1 [facility] Comment on above: Result Comment: Hemo lysis present, Results??could be affected. ?? Performed By: #### M 100.7900, L300.3900, L300.4310, L500.2500, L500.3400, L100.0100 ####[facility] [address] [place], [address] Sodium [Moles/Vol] 144 mmol/L Normal 133-145 [facility] Comment on above: Performed By: #### M 100.7900, L300.3900, L300.4310, L500.2500, L500.3400, L100.0100 ####[facility] [address] [place], [address] Urea nitrogen [Mass/Vol] 52 mg/dL High 4-19 [facility] Comment on above: Performed By: #### M 100.7900, L300.3900, L300.4310, L500.2500, L500.3400, L100.0100 ####[facility] [address] [place], [address] Basophil percentageOrdered B y: Tobias Garcia on 12-17-2024 Basophils/100 WBC (Bld) 0.3 % 0-[address] [facility] Bilirubin Test strip Ql (U)O rdered By: Tobias Garcia on 12-17-2024 Bilirubin Ql (U) Negative Negative [facility] Bilirubin directOrdered By: Tobias Garcia on 12-17-2024 Bilirubin.direct [Mass/Vol] 0.14 mg/dL 0.00-0.3 0 [facility] Comment on above: Hemolysis present, R esults could be affected. Bilirubin, totalOrdered By: Tobias Garcia on 12-17-2024 Bilirubin [Mass/Vol] 0.39 mg/dL 0.00-1.30 [facility] CBC W/Diff, Automatedon Absolute Lymph 1.14 X10 3/uL Normal 0.83-4.51 [facility] Comment on above: Performed By: #### M 100.7900, L300.3900, L300.4310, L500.2500, L500.3400, L100.0100 ####[facility] [address] [place], [address] Absolute Neut 5.6 X10 3/uL Normal 2.0-7.7 [facility] Comment on above: Performed By: #### M 100.7900, L300.3900, L300.4310, L500.2500, L500.3400, L100.0100 ####[facility] [address] [place], [address] Basophils/100 WBC (Bld) 0.3 % Normal 0-[address] [facility] Comment on above: Performed By: #### M 100.7900, L300.3900, L300.4310, L500.2500, L500.3400, L100.0100 ####[facility] [address] [place], [address] Eosinophils/100 WBC (Bld) 0.9 % Normal 0-5 [facility] Comment on above: Performed By: #### M 100.7900, L300.3900, L300.4310, L500.2500, L500.3400, L100.0100 ####[facility] [address] [place], [address] Erythrocyte distribution width (RBC) [Ratio] 13.7 % Normal 11.6-14.6 [facility] Comment on above: Performed By: #### M 100.7900, L300.3900, L300.4310, L500.2500, L500.3400, L100.0100 ####[facility] [address] [place], [address] Hematocrit (Bld) [Volume fraction] 38.3 % Normal 37-47 [facility] Comment on above: Performed By: #### M 100.7900, L300.3900, L300.4310, L500.2500, L500.3400, L100.0100 ####[facility] [address] [place], [address] Hemoglobin (Bld) [Mass/Vol] 12.2 g/dL Normal 12.0-15. 0 [facility] Comment on above: Performed By: #### M 100.7900, L300.3900, L300.4310, L500.2500, L500.3400, L100.0100 ####[facility] [address] [place], [address] IG% 0.900 Normal 0.0-0.9 [facility] Comment on above: Result Comment: IG% - Immature Granulocytes (promyelocytes, myelocytes and metamyelocytes) > 1% indicates that a LEFT SHIFT is Present. Performed By: #### M 100.7900, L300.3900, L300.4310, L500.2500, L500.3400, L100.0100 ####[facility] [address] [place], [address] Lymphocytes/100 WBC (Bld) 14.4 % Low 19-41 [facility] Comment on above: Performed By: #### M 100.7900, L300.3900, L300.4310, L500.2500, L500.3400, L100.0100 ####[facility] [address] [place], [address] MCH (RBC) [Entitic mass] 31.6 pg Normal 27.0-32.0 [facility] Comment on above: Performed By: #### M 100.7900, L300.3900, L300.4310, L500.2500, L500.3400, L100.0100 ####[facility] [address] [place], [address] MCHC (RBC) [Mass/Vol] 31.9 g/dL Low 32-36 [facility] Comment on above: Performed By: #### M 100.7900, L300.3900, L300.4310, L500.2500, L500.3400, L100.0100 ####[facility] [address] [place], [address] MCV (RBC) [Entitic vol] 99.2 fL High 81-[address] [facility] Comment on above: Performed By: #### M 100.7900, L300.3900, L300.4310, L500.2500, L500.3400, L100.0100 ####[facility] [address] [place], [address] Monocytes/100 WBC (Bld) 12.3 % High 0-[address] [facility] Comment on above: Performed By: #### M 100.7900, L300.3900, L300.4310, L500.2500, L500.3400, L100.0100 ####[facility] [address] [place], [address] Neutrophils/100 WBC (Bld) 71.2 % High 47-70 [facility] Comment on above: Performed By: #### M 100.7900, L300.3900, L300.4310, L500.2500, L500.3400, L100.0100 ####[facility] [address] [place], [address] Nucleated RBC (Bld) [#/Vol] 0 10*3/uL Normal 0-5 [facility] Comment on above: Performed By: #### M 100.7900, L300.3900, L300.4310, L500.2500, L500.3400, L100.0100 ####[facility] [address] [place], [address] Platelet mean volume (Bld) [Entitic vol] 10.2 fL Normal 6.2-12.0 [facility] Comment on above: Performed By: #### M 100.7900, L300.3900, L300.4310, L500.2500, L500.3400, L100.0100 ####[facility] [address] [place], [address] Platelets (Bld) [#/Vol] 269 10*3/uL Normal 150-450 [facility] Comment on above: Performed By: #### M 100.7900, L300.3900, L300.4310, L500.2500, L500.3400, L100.0100 ####[facility] [address] [place], [address] RBC (Bld) [#/Vol] 3.86 10*6/uL Low 4.2-5.4 [facility] Comment on above: Performed By: #### M 100.7900, L300.3900, L300.4310, L500.2500, L500.3400, L100.0100 ####[facility] [address] [place], [address] RDW SD 50.2 fl High 35.1-43.9 [facility] Comment on above: Performed By: #### M 100.7900, L300.3900, L300.4310, L500.2500, L500.3400, L100.0100 ####[facility] [address] [place], [address] WBC (Bld) [#/Vol] 7.9 10*3/uL Normal 4.4-11.0 [facility] Comment on above: Performed By: #### M 100.7900, L300.3900, L300.4310, L500.2500, L500.3400, L100.0100 ####[facility] [address] [place], [place], [id number] CTA Abd/Pelvis W/WO Contrast on 12-17-2024 CTA Abd/Pelvis W/WO Contrast [facility] Imaging Services [address] [place], [place] [id number] CTA Abd/Pelvis W/WO Contrast MR#: [id number] Acct: [id number] Name: DICK ARTIS Rep #: [id number] : 1935 F 89 From: Vera rodas MD PCP: Dr. Viktoriya Manzo MD Status: [facility] ER Study: CTA Abd/Pelvis W/WO Contrast Date of Exam: 09/11 Exam# [id number] Ordering Dr: Tobias Garcia DO PROCEDURE: CTA ABD/PELVIS W/WO CONTRAST 12/17/2024 REASON FOR EXAM: GI BLEED WITH LLQ PAIN TECHNIQUE: CTA imaging of the abdomen and pelvis with intravenous contrast. Multiplanar and multisequence images were obtained. CONTRAST: Isovue-350 VOLUME: 100 mL Gauge IV One or more dose reduction techniques were used (e.g., Automated exposure control, adjustment of the mA and/or kV according to patient size, use of iterative reconstruction technique). RADIATION DOSE SUMMARY: CTDlvol: 11.9 mGy DLP: 539 mGycm COMPARISON: 11/28/2024. FINDINGS: Diffuse colonic diverticulosis. Moderate diffuse thickening of the colon, more prominent in the rectosigmoid colon, probably colitis without evidence of perforation or pneumatosis coli. No CT evidence of active bleeding during the time of the exam. Prior hysterectomy. 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 Moderate chronic right renal atrophy. Unchanged scattered right renal simple cysts with the largest measuring 4.3 cm. Unchanged nodularity of the left adrenal gland. Atherosclerotic, tortuous ectatic abdominal aorta. Mild stenosis of the origins of the celiac, superior and inferior mesenteric arteries. Well-defined homogeneously enhancing 1.4 cm hemangioma in the segment 4 of the liver. Unchanged small sliding hiatal hernia. Diffuse thickening of the stomach suggestive of gastritis. Mild osteopenia. Mild diffuse spondylosis. Mild chronic compression deformity of L1 vertebral body. The visualized lung bases are unremarkable. Normal remaining liver. Normal gallbladder and extrahepatic biliary system. Normal spleen. Normal pancreas. Normal bilateral adrenal glands. Normal size of the right kidney. There is no right renal mass. There are no right renal calculi. There is no right hydronephrosis. Normal visualized right ureter. Normal size of the left kidney. There is no left renal mass. There are no left renal calculi. There is no left hydronephrosis. Normal visualized left ureter. Normal small intestine. The appendix is visualized and appears normal. There is no demonstrated peritoneal fluid. Normal inferior vena cava. Normal retroperitoneum. Normal urinary bladder. There is no pelvic mass lesion or lymphadenopathy. There is no pelvic fluid. CT/CTA Abd/Pelvis W/WO Contrast IMPRESSION: 1. Diffuse colonic diverticulosis. 2. Moderate diffuse thickening of the colon, more prominent in the rectosigmoid colon, probably colitis without evidence of perforation or pneumatosis coli. 3. No CT evidence of active bleeding during the time of the exam. 4. Prior hysterectomy. 5. 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 6. Moderate chronic right renal atrophy. 7. Unchanged scattered right renal simple cysts with the largest measuring 4.3 cm. 8. Unchanged nodularity of the left adrenal gland. 9. Atherosclerotic, tortuous ectatic abdominal aorta. 10. Mild stenosis of the origins of the celiac, superior and inferior mesenteric arteries. 11. Well-defined homogeneously enhancing 1.4 cm hemangioma in the segment 4 of the liver. 12. Unchanged small sliding hiatal hernia. 13. Diffuse thickening of the stomach suggestive of gastritis. 14. Mild osteopenia. 15. Mild diffuse spondylosis. 16. Mild chronic compression deformity of L1 vertebral body. Reading Location: [place] [address] CC: Dr. Viktoriya Manzo MD; Tobias Garcia DO 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: Signed Normal [facility] Carbon dioxide, total [Moles /volume] in Central venous bloodOrdered By: Tobias Garcia on 12-17-2024 CO2 [Moles/Vol] 32.5 mmol/L High 21.0-32.0 [facility] Chest PA and Lateralon 12-17 Chest PA and Lateral [facility] Services [address] [place] [address] Chest PA and Lateral MR#: [id number] Acct: [id number] Name: DICK ARTIS Rep #: [id number] : 1935 F 89 From: Vera rodas MD PCP: Dr. Viktoriya Manzo MD Status: REG ER Study: Chest PA and Lateral Date of Exam: 12/17/24 Exam# [id number] Ordering Dr: Tobias Garcia DO PROCEDURE: CHEST PA AND LATERAL 12/17/2024 REASON FOR EXAM: COUGH TECHNIQUE: Frontal and lateral views of the chest. COMPARISON: None. FINDINGS: Mild bilateral basilar atelectatic pulmonary changes. Moderate benign chronic compression deformities of the lower thoracic vertebral bodies with increased dorsal kyphosis, chronic finding. There is no demonstrated pleural abnormality. Normal heart and pericardium. Normal mediastinum and yamilka. Normal visualized pulmonary arteries. Normal visualized aortic arch and descending thoracic aorta. Normal visualized thoracic spine. Normal visualized ribs, clavicles, and shoulders. There is no demonstrated abnormality of the visualized soft tissue structures of the upper abdomen. RAD/Chest PA and Lateral IMPRESSION: Bilateral basilar atelectatic pulmonary changes. Reading Location: [place] [address] CC: Dr. Viktoriya Manzo MD; Tobias Garcia DO 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: Signed Normal [facility] Chloride assayOrdered By: Nela Garcia on 12-17-2024 Chloride [Moles/Vol] 98 mmol/L 98-108 [facility] Emergency Department Summary on 12-17-2024 Emergency Department Summary [facility] Medical Records Department [address] [place] [address] Emergency Department Summary 12/17/24 MR#: [id number] Acct: [id number] Name: DICK ARTIS Rep #: [id number] : 1935 89 From: Tobias Garcia DO PCP: Dr. Viktoriya Manzo MD Status:REG ER Location: ED HPI History of Present Illness Chief Complaint: GI Bleed Informant: patient and family Narrative Narrative: Patient is a 89-year-old female with past medical history of hypertension hyperlipidemia chronic kidney disease and COPD who wears nasal cannula oxygen at baseline. She states that she went to bed last night and then awoke around 3 in the morning with sensation she had to use the restroom and then noticed that there was blood in her pants and up the lower portion of her back. She states she is on Plavix but denies Eliquis Coumadin or Xarelto use or history of bleeding disorder. She states she does have a mild amount of lower abdominal pain but otherwise does not have fever or dysuria. She states that she had a similar event happen 1 to 2 weeks ago but that the symptoms resolved and she did not come to the hospital for evaluation. She reports it has been multiple years since her last colonoscopy. However this evening as the bout of GI bleeding occurred while sleeping and it is a repeat event she was brought in for evaluation [facility] Medical History History of chronic heart failure Cancer Thyroid disease Ambulates with cane History of renal disease TIA (transient ischemic attack) Acute diverticulitis Wears glasses Wears dentures Arthritis Low iron Anemia High cholesterol Migraine headache Restless legs Difficulty chewing History of diverticulitis Heartburn Gastric reflux Former smoker On home oxygen therapy Shortness of breath on exertion Chronic cough History of edema History of echocardiogram History of stress test Cardiology follow-up encounter Hypertension Chronic hypoxic respiratory failure History of diabetes mellitus History of hypertension Diverticulitis History of COPD COPD (chronic obstructive pulmonary disease) Anemia Chronic heart failure with preserved ejection fraction (HFpEF) Hyperlipidemia Right lumbar radiculopathy CKD (chronic kidney disease), stage III Hypertension Chronic kidney disease PAD (peripheral artery disease) Renal cyst History of TIA (transient ischemic attack) Bilateral carotid artery stenosis Claudication RLS (restless legs syndrome) Diverticulosis TIA (transient ischemic attack) Vertigo Leg edema Dyslipidemia Home Medications ???Medication ???Instructions ???Recorded ???Last Taken ???Type atorvastatin 40 mg tablet 40 mg PO QHS cholesterol 02/22/16 11/27/24 History clopidogrel 75 mg tablet 75 mg PO DAILY BLOOD THINNER 02/2111/28/24 History albuterol sulfate 90 mcg/actuation 2 puff inhalation Q4H PRN 09/27/24 History aerosol inhaler shortness of breath or wheezing pramipexole 1.5 mg tablet 1.5 mg PO QHS restless leg syndrom e 08/18/23 11/27/24 History polysaccharide iron complex 150 mg 150 mg PO DAILY supplement 30 da ys 10/12/23 11/28/24 Rx iron capsule (Ferrex) #30 caps acetaminophen 500 mg tablet 1,000 mg PO Q6H PRN pain 02/14/24 Unknown History arformoterol 15 mcg/2 mL solution 15 mcg inhalation BID breathing 0 02/14/24 11/28/24 History for nebulization duloxetine 20 mg capsule,delayed 60 mg PO DAILY mental health 02/1311/28/24 History release spironolactone 25 mg tablet 25 mg PO DAILY diuretic 02/14/24 0 11/28/24 History cholecalciferol (vitamin D3) 125 125 mcg PO DAILY 30 days #30 caps 06/08/24 11/28/24 Rx mcg (5,000 unit) capsule furosemide 40 mg tablet 40 mg PO BID FLUID RETENTION 09/2411/28/24 History pantoprazole 40 mg tablet,delayed 40 mg PO BID reflux 09/24/2411/15 History release budesonide 0.5 mg/2 mL suspension 0.5 mg inhalation BID breathing 0 11/28/24 11/28/24 History for nebulization carvedilol 25 mg tablet 25 mg PO BID 11/28/24 11/28/24 His tory magnesium oxide 400 mg PO DAILY 11/28/24 11/28/24 History potassium chloride 20 mEq/15 mL 20 meq PO DAILY 11/28/24 11/28/24 History oral liquid cetirizine 10 mg tablet (24Hour 10 mg PO DAILY 12/17/24 Unknown Hi story Allergy) Allergy/AdvReac Type Severity Reaction Status Date / Time lisinopril Allergy edema Verified 12/17/24 04:43 aspirin AdvReac Upset Verified 12/17/24 04:43 Stomach Family History Mother Heart disease Surgical History History of thyroid surgery History of carotid angioplasty History of kidney stones History of basal cell carcinoma excision (more content not included)... Normal [facility] Eosinophil percentageOrdered By: Tobias Garcia on 12-17-2024 Eosinophils/100 WBC (Bld) 0.9 % 0-5 [facility] Erythrocyte distribution wid th ratioOrdered By: Tobias Garcia on 12-17-2024 Erythrocyte distribution width (RBC) [Ratio] 13.7 % 11.6-14.6 [facility] Erythrocyte distribution wid th standard deviationOrdered By: Tobias Garcia on 12-17-2024 Erythrocyte distribution width (RBC) [Ratio] 50.2 fl High 35.1-43.9 [facility] Glomerular filtration rate ( GFR) estimation/1.73 sq m using serum, plasma, or whole bOrdered By: Tobias Garcia on 12-17-2024 GFR/1.73 sq M.predicted among non-blacks MDRD (S/P/Bld) [Vol rate/Area] 35 mL/min/{1.73_m2} Low >60 [facility] Comment on above: mL/min/1.73m2 CKD-EP I Creatinine Equation (2020) Hematocrit Auto (Bld) [Volum e fraction]Ordered By: Tobias Garcia on 12-17-2024 Hematocrit (Bld) [Volume fraction] 38.3 % 37-47 [facility] Hemoglobin measurementOrdere d By: Tobias Garcia on 12-17-2024 Hemoglobin (Bld) [Mass/Vol] 12.2 g/dL 12.0-15. 0 [facility] Immature granulocytes/100 WB C Auto (Bld)Ordered By: Tobias Garcia on 12-17-2024 Immature granulocytes/100 WBC (Bld) 0.900 % 0.0-0.9 [facility] Comment on above: IG% - Immature Granu locytes (promyelocytes, myelocytes and metamyelocytes) > 1% indicates that a LEFT SHIFT is Present. International normalized rat io (INR) calculationOrdered By: Tobias Garcia on 12-17-2024 INR Coag (Bld) [Relative time] 1.0 {INR} [facility] Ketones Test strip Ql (U)Ord ered By: Tobias Garcia on 12-17-2024 Ketones Ql (U) Negative Negative [facility] Laboratory - Chemistry and C hemistry - challengeOrdered By: Tobias Garcia on 12-17-2024 AST [Catalytic activity/Vol] 20 U/L <32 [facility] Comment on above: Hemolysis present, R esults could be affected. Liver Profileon 12-17-2024 Albumin [Mass/Vol] 3.8 g/dL Normal 3.4-4.8 [facility] Comment on above: Performed By: #### L 501.080 #### [facility] [address] [place], [address] ALK PHOS 75 U/L Normal 35-104 [facility] Comment on above: Performed By: #### L 501.080 #### [facility] [address] [place], [address] ALT [Catalytic activity/Vol] 11 U/L Normal <=34 [facility] Comment on above: Performed By: #### L 501.080 #### [facility] [address] [place], [address] AST [Catalytic activity/Vol] 20 U/L Normal <=31 [facility] Comment on above: Result Comment: Hemo lysis present, Results??could be affected. ?? Performed By: #### L 501.080 #### [facility] [address] [place], [address] Bilirubin [Mass/Vol] 0.39 mg/dL Normal 0.00-1.30 [facility] Comment on above: Performed By: #### L 501.080 #### [facility] [address] [place], [address] Bilirubin.direct [Mass/Vol] 0.14 mg/dL Normal 0.00-0.3 0 [facility] Comment on above: Result Comment: Hemo lysis present, Results??could be affected. ?? Performed By: #### L 501.080 #### [facility] [address] [place], [address] Globulin (S) [Mass/Vol] 3.1 g/dL Normal 2.2-4.[address] [facility] Comment on above: Performed By: #### L 501.080 #### [facility] [address] [place], [address] T PROT 7.0 g/dL Normal 5.9-8.4 [facility] Comment on above: Performed By: #### L 501.080 #### [facility] [address] [place], [address] MCV (mean corpuscular volume ) determinationOrdered By: Tobias Garcia on 12-17-2024 MCV (RBC) [Entitic vol] 99.2 fL High 81-99 [facility] Mean corpuscular hemoglobin (MCH) determinationOrdered By: Tobias Garcia on 12-17-2024 MCH (RBC) [Entitic mass] 31.6 pg 27.0-32.0 [facility] Mean corpuscular hemoglobin concentration (MCHC) determinationOrdered By: Tobias Garcia on 12-17-2024 MCHC (RBC) [Mass/Vol] 31.9 g/dL Low 32-36 [facility] Mean platelet volume determi nationOrdered By: Tobias Garcia on 12-17-2024 Platelet mean volume (Bld) [Entitic vol] 10.2 fL 6.2-12.0 [facility] Microscopic analysis of urin e for red blood cells (RBC)Ordered By: Tobias Garcia on 12-17-2024 Microscopic analysis of urine for red blood cells (RBC) 5-10 SEEN /hpf 0-5 [facility] Monocyte percentageOrdered B y: Tobias Garcia on 12-17-2024 Monocytes/100 WBC (Bld) 12.3 % High 0-[address] [facility] Mucus LM Ql (Urine sed)Order ed By: Tobias Garcia on 12-17-2024 Mucus Ql (Urine sed) 0 SEEN /hpf [facility] Neutrophil percentageOrdered By: Tobias Garcia on 12-17-2024 Neutrophils/100 WBC (Bld) 71.2 % High 47-70 [facility] Nitrite Test strip Ql (U)Ord ered By: Tobias Garcia on 12-17-2024 Nitrite Ql (U) Negative Negative [facility] No Panel InformationOrdered By: Tobias Garcia on 12-17-2024 20 U/L <32 [facility] Nucleated red blood cell per centageOrdered By: Tobias Garcia on 12-17-2024 Nucleated RBC/100 WBC (Bld) [Ratio] 0 % 0-5 [facility] Partial Thromboplast Timeon 12-17-2024 aPTT Coag (Bld) [Time] 24.3 s Normal 24.1-36.2 [facility] Comment on above: Performed By: #### M 100.7900, L300.3900, L300.4310, L500.2500, L500.3400, L100.0100 ####[facility] [address] [place], [place], [phone] Platelet countOrdered By: Nela Garcia on 12-17-2024 Platelets (Bld) [#/Vol] 269 10*3/uL 150-450 [facility] Potassium measurement (mass/ volume)Ordered By: Tobias Garcia on 12-17-2024 Potassium (Unsp spec) [Mass/Vol] 4.0 mmol/L 3.3-5.1 [facility] Comment on above: Hemolysis present, R esults could be affected. Protein Test strip Ql (U)Ord ered By: Tobias Garcia on 12-17-2024 Protein Ql (U) 15 mg/dl High Negative [facility] Prothrombin Time w/INRon INR Coag (PPP) [Relative time] 1.0 {INR} Normal [facility] Comment on above: Performed By: #### M 100.7900, L300.3900, L300.4310, L500.2500, L500.3400, L100.0100 ####[facility] [address] [place], [place], [phone] PT Coag (PPP) [Time] 13.0 s Normal 11.7-14.9 [facility] Comment on above: Performed By: #### M 100.7900, L300.3900, L300.4310, L500.2500, L500.3400, L100.0100 ####[facility] [address] [place], [place], [phone] Prothrombin timeOrdered By: Tobias Garcia on 12-17-2024 PT Coag (PPP) [Time] 13.0 s 11.7-14.9 [facility] RBC Auto (Bld) [#/Vol]Ordere d By: Tobias Garcia on 12-17-2024 RBC (Bld) [#/Vol] 3.86 10*6/uL Low 4.2-5.4 [facility] Serum creatinine measurement (mass/volume)Ordered By: Tobias Garcia on 12-17-2024 Creatinine [Mass/Vol] 1.45 mg/dL High 0.70-1.20 [facility] Serum globulin measurementOr dered By: Tobias Garcia on 12-17-2024 Globulin (S) [Mass/Vol] 3.1 g/dL 2.2-4.2 [facility] Serum glucose measurement (m ass/volume)Ordered By: Tobias Garcia on 12-17-2024 Glucose [Mass/Vol] 110 mg/dL High 70-99 [facility] Serum or plasma alanine toney otransferase (ALT) measurementOrdered By: Tobias Garcia on 12-17-2024 ALT [Catalytic activity/Vol] 11 U/L <35 [facility] Serum or plasma albumin magalis urement (mass/volume)Ordered By: Tobias Garcia on 12-17-2024 Albumin [Mass/Vol] 3.8 g/dL 3.4-4.8 [facility] Serum or plasma alkaline ilan sphatase measurementOrdered By: Tobias Garcia on 12-17-2024 ALP [Catalytic activity/Vol] 75 U/L 35-104 [facility] Serum or plasma calcium magalis urement (mass/volume)Ordered By: Tobias Garcia on 12-17-2024 Calcium [Mass/Vol] 9.0 mg/dL 7.6-11.0 [facility] Serum or plasma urea nitroge n measurement (mass/volume)Ordered By: Tobias Garcia on 12-17-2024 Urea nitrogen [Mass/Vol] 52 mg/dL High 4-19 [facility] Sodium levelOrdered By: Naveen Garcia on 12-17-2024 Sodium [Moles/Vol] 144 mmol/L 133-145 [facility] Squamous epithelial cells de tection in urine sediment by light microscopyOrdered By: Tobias Garcia on 12-17-2024 Epithelial cells.squamous LM Ql (Urine sed) 0-5 SEEN /hpf 5-10 [facility] Stool Occult Blood iFOBon STOB Positive Normal [facility] Comment on above: Performed By: #### M 100.7900, L300.3900, L300.4310, L500.2500, L500.3400, L100.0100 ####[facility] [address] [place], [place], [phone] Stool gastrointestinal hemog lobin detection by immunologic methodOrdered By: Tobias Garcia on 12-17-2024 Lower GI hemoglobin IA Ql (Stl) Positive Abnormal [facility] Total proteinOrdered By: Onur Garcia on 12-17-2024 Protein [Mass/Vol] 7.0 g/dL 5.9-8.4 [facility] Urinalysis, Completeon 12-17 BACTERIA 2+ /hpf Normal None Seen [facility] Comment on above: Order Comment: COLLE CTOR TO SPECIFY Performed By: #### L 400.0001 #### [facility] [address] [place], [place], [phone] EPI,SQUAMOUS 0-5 SEEN Normal 5-10 [facility] Comment on above: Order Comment: TITI CTOR TO SPECIFY Performed By: #### L 400.0001 #### [facility] [address] [place], [address] RBC 5-10 SEEN Normal 0-5 [facility] Comment on above: Order Comment: TITI CTOR TO SPECIFY Performed By: #### L 400.0001 #### [facility] [address] [place], [address] WBC 0-5 SEEN Normal 0-5 [facility] Comment on above: Order Comment: TITI CTOR TO SPECIFY Performed By: #### L 400.0001 #### [facility] [address] [place], [address] Mucus Ql (Urine sed) 0 SEEN Normal [facility] Comment on above: Order Comment: TITI CTOR TO SPECIFY Performed By: #### L 400.0001 #### [facility] [address] [place], [address] Urine clarityOrdered By: Onur Garcia on 12-17-2024 Clarity (U) Clear Clear [facility] Urine color determinationOrd ered By: Tobias Garcia on 12-17-2024 Color (U) Yellow Yellow [facility] Urine glucose detectionOrder ed By: Tobias Garcia on 12-17-2024 Glucose Ql (U) Normal mg/dl Normal [facility] Urine leukocyte esterase det ection by dipstickOrdered By: Tobias Garcia on 12-17-2024 Leukocyte esterase Test strip Ql (U) 100 /ul High Negative [facility] Urine pHOrdered By: Tobias crooks on 12-17-2024 pH (U) 6.5 [pH] 5.0 - 8.0 [facility] Urine sediment bacteria coun t by microscopy (number/high power field)Ordered By: Tobias Garcia on 12-17-2024 Bacteria LM.HPF (Urine sed) [#/Area] 2 /[HPF] None Seen [facility] Urine specific gravity measu rementOrdered By: Tobias Garcia on 12-17-2024 Specific gravity (U) [Rel density] 1.010 1.002-1.03 0 [facility] Urine urobilinogen measureme ntOrdered By: Tobias Garcia on 12-17-2024 Urobilinogen Ql (U) Normal mg/dl Normal [facility] White blood cell (WBC) count Ordered By: Tobias Garcia on 12-17-2024 WBC (Bld) [#/Vol] 7.9 10*3/uL 4.4-11.0 [facility] White blood cell countOrdere d By: Tobias Garcia on 12-17-2024 White blood cell count 0-5 SEEN /hpf 0-5 [facility] NCS and/or EMG Patienton NCS and/or EMG Patient [facility] Pulmonary Services/Neurology [address] [place] [address] MR#: [id number] Acct: [id number] Name: DICK ARTIS Rep #: [id number] : 1935 89 From: Lisa Zapien MD Referring Dr: Tona Kim Status: REG CL I Location: PSN Date: 12/05/24 Sex: F C NCS and/or EMG Patient Report Ordering Doctor: Tona Kim DATE OF SERVICE: 12/05/24 Dick presents with pain in the right hand and arm. Electrodiagnostic findings: Right median motor nerve demonstrates prolonged latency with normal amplitude and reduced conduction velocity. Normal right ulnar motor response, including conduction across the elbow. Normal right median ulnar F???wave. Prolonged right median sensory latency at the wrist. Needle EMG testing was performed the right upper limb. All muscles tested showed no evidence of denervation with normal motor unit action potentials. Electrodiagnostic impression: This is an abnormal study in the right upper limb 1. Electrodiagnostic findings suggestive of right-sided median mononeuropathy. This consistent with a mild right carpal tunnel syndrome. 2. No electrodiagnostic evidence is noted for cervical radiculopathy. Multi Select Codes Neurology Neurology Interp Codes: 73986-68 Musc test done w/n test comp (interp) and 41644-07 Nrv cndj tst 5-6 studies (interp) 12/05/24 1046 Date Lisa Zapien MD CC: Dr. Lisa Zapien MD; Dr. Viktoriya Manzo MD; INDIRA Salgado Date Dictated: 12/05/241043 Date Transcribed: 12/05/241043 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: RAY Signed [facility] CNOVon 11-30-2024 CNOV Office Visit (PULMWS ) DICK ARTIS ([id number]) 1935 F Date Time Provider Department 11/30/24 2:45 PM ALINA DELVALLE PULMWS During your visit today, we recorded the following information about you: Pulse Respiration Blood pressure 91/minute 15/minute 112/58 Alina Delvalle MD 11/30/2024 4:29 PM Signed . Respiratory Pingree Note Patient name: Dick Artis PCP: Viktoriya Manzo MD CC: Follow up COPD HPI: Dick Artis 89 year old female former 50 pack year smoker, quitting in 2017 with PMH significant for HTN, TIA, PAD, CKD, COPD, atelectasis. Inhaled therapy consists of Brovana, budesonide and albuterol. Having current issues with lower quadrant pain and constipation. Evaluated in ED. Being treated for diverticulitis although abdominal CT was unremarkable. From a pulmonary standpoint she has been about the same. Main symptom is RAPHAEL. No chronic cough, wheezing or chest pain. No recent URI or exacerbation of her COPD. She is inquiring about a POC. Mainly would like something that is less heavy than her small tank. The size of POC she would need is no grounds manager than her tank. PAST MEDICAL HISTORY Diagnosis Date Basal cell carcinoma Carotid stenosis CEA left Chronic hypoxemic respiratory failure (HCC) CKD (chronic kidney disease) stage 3, GFR 30-59 ml/min ([facility]) 07/30/2018 COPD (chronic obstructive pulmonary disease) ([facility]) Diastolic heart failure ([facility]) Diverticulosis of colon (without mention of hemorrhage) Diverticulosis Hypertension Rolly Smith MD NSTEMI (non-ST elevated myocardial infarction) ([facility]) Osteoporosis, unspecified Personal history of colonic polyps Colon polyps Restless legs syndrome (RLS) Spinal stenosis TIA (transient ischemic attack) 2008 Plavix Type 2 diabetes mellitus with hyperglycemia, without long-term current use of insulin ([facility]) 10/19/2023 ALLERGIES Allergen Reactions Amlodipine Swelling Lower leg edema. Aspirin Unknown Lisinopril Cough Requip [Ropinirole] Other: See Comments Very anxious ciprofloxacin HCl (CIPRO) 500 mg tablet Take 500 mg by mouth once daily. metroNIDAZOLE (FLAGYL) 500 mg tablet Take 500 mg by mouth one time only. albuterol HFA (VENTOLIN HFA) 90 mcg/actuation inhaler Inhale 2 Puffs as instructed every 4 hours as needed for wheezing/shortness of breath. May take 2 puffs prior to exercise potassium chloride 20 mEq/15 mL solution Take 15 mL by mouth once daily. cholecalciferol, vitamin D3, (VITAMIN D3 ORAL) Take 1 tablet by mouth once daily. iron polysaccharide complex (FERREX-150) 150 mg iron capsule Take 1 capsule by mouth once daily. DULoxetine (CYMBALTA) 60 mg capsule Take 1 capsule by mouth once daily. clopidogrel (PLAVIX) 75 mg tablet Take 1 tablet by mouth once daily. atorvastatin (LIPITOR) 40 mg tablet Take 1 tablet by mouth once daily. arformoterol (BROVANA) 15 mcg/2 mL nebulizer solution Inhale 2 mL as instructed every 12 hours. budesonide (PULMICORT) 0.5 mg/2 mL nebulizer solution Use 2 mL via nebulizer two times a day. carvedilol (COREG) 25 mg tablet Take 1 tablet by mouth two times a day with meals. furosemide (LASIX) 40 mg tablet Take 1 tablet by mouth two times a day. pantoprazole DR (PROTONIX) 40 mg tablet Take 1 tablet by mouth two times a day. pramipexole (MIRAPEX) 1.5 mg tablet Take 1 tablet by mouth daily at bedtime. spironolactone (ALDACTONE) 25 mg tablet Take 1 tablet by mouth once daily. magnesium oxide (MAG-OX) 400 mg (241.3 mg magnesium) tablet Take 1 tablet by mouth once daily. OXYGEN, HOME THERAPY, 2 L/min by Nasal Cannula route as directed. 4L/min at night acetaminophen (TYLENOL) 500 mg tablet Take 1,000 mg by mouth every 6 hours as needed for pain (EVERY 6 HOURS NEEDED FOR PAIN). Social History Tobacco Use Smoking status: Former Current packs/day: 0.00 Average packs/day: 1 pack/day for 53.1 years (53.1 ttl pk-yrs) Types: Cigarettes Start date: 08/11/1963 Quit date: 10/04/2016 Years since quittin.1 Smokeless tobacco: Never Tobacco comments: 10-20 year period in 30-40s when quit. Vaping Use Vaping status: Never Used Substance Use Topics Alcohol use: Not Currently Comment: very seldom Drug use: Never FAMILY HISTORY Problem Relation Age of Onset Diabetes Mother Heart Mother None Father hx unknown Heart Brother Diabetes Brother Cancer Brother Lung, 1/2 brother. Asthma No Family History COPD No Family History Emphysema No Family History PAST SURGICAL HISTORY Procedure Laterality Date CAROTID ENDARTERECTOMY Left 01/23/2021 COLONOSCOPY FLX DX W/COLLJ SPEC WHEN PFRMD 03/25/2004 Colonoscopy CYSTOSCOPY 06/02/2012 left ureteral calculi ESOPHAGOGASTRODUODENOS COPY TRANSORAL DIAGNOSTIC 03/25/2004 EGD PAST SURGICAL HISTORY OF 04/15/2004 right inferior parathyroidectomy TOTAL ABDOMINAL HYSTERECT W/WO (more content not included)... Normal [facility] Urine Cultureon 11-30-2024 URC #1, 2 Below infectio n level. 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 Submit a new specimen if indicated. Normal [facility] Comment on above: Performed By: #### M 100.2200 ####[facility] [id number] [place], [address] Abdomen/Pelvis without Conto n 11-28-2024 Abdomen/Pelvis without Cont [facility] Imaging Services [address] [place] [address] Abdomen/Pelvis without Cont MR#: [id number] Acct: [id number] Name: DICK ARTIS Rep #: [id number] : 1935 F 89 From: Ramos field MD PCP: Dr. Viktoriya Manzo MD Status: REG ER Study: Abdomen/Pelvis without Cont Date of Exam: 11/15 11/09 Exam# [id number] Ordering Dr: Tamanna Disla DO PROCEDURE: ABDOMEN/PELVIS WITHOUT CONT 11/28/2024 REASON FOR EXAM: 1 day history of abdominal pain. TECHNIQUE: Abdomen and pelvis CT without intravenous contrast. Noncontrast technique limits evaluation of the abdominal and pelvic viscera. Coronal and Sagittal reconstruction series were provided. One or more dose reduction techniques were used (e.g., Automated exposure control, adjustment of the mA and/or kV according to patient size, use of iterative reconstruction technique). PATIENT PREPARATION: Per protocol ORAL CONTRAST TYPE: None. CT dL volume: 6.97 mGy. DLP: 335.93 COMPARISON: Prior examination dated June 06, 2024. FINDINGS: Lung bases: Stable volume loss in the right middle lobe. Coronary artery calcification. Liver: Unremarkable. Gallbladder: stable 4 mm dense nodule along the fundal portion of the gallbladder suggestive of either a tiny gallstone or gallbladder polyp. Spleen: Normal size. Pancreas: Subcentimeter cyst in the tail portion of the pancreas. This is unchanged. Adrenals: Stable 1.3 cm left adrenal nodule suggestive of adenoma. Kidneys: Stable 4.3 cm solid mass in the upper pole of the right kidney. Renal atrophy. Right renal cysts. Tiny nonobstructive left intrarenal calculi. Bladder: Unremarkable Reproductive Organs: Prior hysterectomy. Adnexal regions are unremarkable. Bowel: Colonic diverticulosis without diverticulitis. Appendix: The appendix is not identified. There is no inflammatory process identified in the right lower quadrant to suggest appendicitis. Lymph nodes: None Vasculature: Mild diffuse atherosclerotic calcifications of the abdominal aorta and the major visceral branches are noted. Peritoneum / Retroperitoneum: Unremarkable Bones: Degenerative changes of the spine. CT/Abdomen/Pelvis without Cont IMPRESSION: Sigmoid diverticulosis. Questionable tiny gallstone in the fundal portion of the gallbladder versus tiny gallstone. Tiny nonobstructive left intrarenal calculi. OVERALL FINAL ASSESSMENT: . LI-RADS is not meant to be used in patients <18 years or patients with cirrhosis due to congenital hepatic fibrosis or due to vascular disorders, because these patients have a lower chance of developing HCC. Reading Location: [id number] CC: Dr. Viktoriya Manzo MD; Dr. Tamanna Disla DO 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: Signed Normal [facility] Absolute lymphocyte countOrd ered By: Tamanna Disla on 11-28-2024 Lymphocytes Auto (Unsp spec) [#/Vol] 0.81 10*3/uL Low 0.83-4.51 [facility] Absolute neutrophil countOrd ered By: Tamanna Disla on 11-28-2024 Neutrophils (Bld) [#/Vol] 7.1 10*3/uL 2.0-7.7 [facility] Anion gap in Serum or Plasma Ordered By: Tamanna Disla on 11-28-2024 Anion gap [Moles/Vol] 12 mmol/L 5-15 [facility] Automated blood erythrocyte countOrdered By: Tamanna Disla on 11-28-2024 RBC (Bld) [#/Vol] 3.10 10*6/uL Low 4.2-5.4 [facility] Comment on above: Performed By: #### L 501.080 #### [facility] [address] [facility] [address] [place], [place], [phone] Automated blood hematocrit ( percentage)Ordered By: Tamanna Disla on 11-28-2024 Hematocrit (Bld) [Volume fraction] 30.7 % Low 37-47 [facility] Comment on above: Performed By: #### L 501.080 #### [facility] [address] [facility] [place], [place], [phone] Automated lymphocyte count a s percentage of total leukocytesOrdered By: Tamanna Disla on 11-28-2024 Lymphocytes/100 WBC Auto (Unsp spec) 9.2 % Low 19-41 [facility] BUN/creatinine ratioOrdered By: Remus Naif on 11-28-2024 Urea nitrogen/Creatinine [Mass ratio] 29.1 mg/mg High 10- [facility] Basic Metabolic Profile (BMP )on 11-28-2024 BUN/CRE 29.1 RATIO High - [facility] Comment on above: Performed By: #### L 501.080 #### [facility] [address] [place], [address] ECRCL 21.09 ml/min Low 50-250 [facility] Comment on above: Performed By: #### L 501.080 #### [facility] [address] [place], [address] GAP 12 Normal 5-15 [facility] Comment on above: Performed By: #### L 501.080 #### [facility] [address] [place], [address] Potassium [Moles/Vol] 4.0 mmol/L Normal 3.3-5.1 [facility] Comment on above: Performed By: #### L 501.080 #### [facility] [address] [place], [address] Basophil percentageOrdered B y: Demetriceus Naif on 11-28-2024 Basophils/100 WBC (Bld) 0.2 % 0-[address] [facility] Comment on above: Performed By: #### L 501.080 #### [facility] [address] [place], [address] Bilirubin Test strip Ql (U)O rdered By: Remus Naif on 11-28-2024 Bilirubin Ql (U) Negative Negative [facility] CBC W/Diff, Automatedon 11-15 Absolute Lymph 0.81 X10 3/uL Low 0.83-4.51 [facility] Comment on above: Performed By: #### L 501.080 #### [facility] [address] [place], [address] Absolute Neut 7.1 X10 3/uL Normal 2.0-7.7 [facility] Comment on above: Performed By: #### L 501.080 #### [facility] [address] [place], [address] IG% 0.200 Normal 0.0-0.9 [facility] Comment on above: Result Comment: IG% - Immature Granulocytes (promyelocytes, myelocytes and metamyelocytes) > 1% indicates that a LEFT SHIFT is Present. Performed By: #### L 501.080 #### [facility] [address] [place], [address] Lymphocytes/100 WBC (Bld) 9.2 % Low 19-41 [facility] Comment on above: Performed By: #### L 501.080 #### [facility] [address] [place], [address] Nucleated RBC (Bld) [#/Vol] 0 10*3/uL Normal 0-5 [facility] Comment on above: Performed By: #### L 501.080 #### [facility] [address] [place], [address] RDW SD 49.4 fl High 35.1-43.9 [facility] Comment on above: Performed By: #### L 501.080 #### [facility] [address] [place], [address] Carbon dioxide, total [Moles /volume] in Central venous bloodOrdered By: Tamanna Disla on 11-28-2024 CO2 [Moles/Vol] 28.4 mmol/L 21.0-32.0 [facility] Comment on above: Performed By: #### L 501.080 #### [facility] [address] [place], [address] Chloride assayOrdered By: Silva Disla on 11-28-2024 Chloride [Moles/Vol] 98 mmol/L 98-108 [facility] Comment on above: Performed By: #### L 501.080 #### [facility] [address] [place], [address] Emergency Department Summary on 11-28-2024 Emergency Department Summary [facility] Medical Records Department [address] [place] [address] Emergency Department Summary 11/28/24 MR#: [id number] Acct: [id number] Name: DICK ARTIS Rep #: [id number] : 1935 89 From: Tamanna Disla DO PCP: Dr. Viktoriya Manzo MD Status:REG ER Location: ED HPI HPI - GI History of Present Illness Chief Complaint: Abd Pain Detail of Chief Complaint: Abdominal pain Informant: patient Narrative Narrative: Patient presents to the emergency department with complaint of abdominal pain that started yesterday. Describes the pain as sharp and stabbing to the left lower quadrant. She has history of diverticulitis. She denies fever or chills or sweats. She denies nausea or vomiting. She denies urinary symptoms. She denies blood in her stool or black tarry stool. Patient's had prior hysterectomy. No other abdominal surgeries. Currently rates her pain a 5 or 6 out of 10. [facility] Medical History (Updated 11/28/24 @ 15:[address] Tamanna Disla DO) History of chronic heart failure Cancer Thyroid disease Ambulates with cane History of renal disease TIA (transient ischemic attack) Acute diverticulitis Wears glasses Wears dentures Arthritis Low iron Anemia High cholesterol Migraine headache Restless legs Difficulty chewing History of diverticulitis Heartburn Gastric reflux Former smoker On home oxygen therapy Shortness of breath on exertion Chronic cough History of edema History of echocardiogram History of stress test Cardiology follow-up encounter Hypertension Chronic hypoxic respiratory failure History of diabetes mellitus History of hypertension Diverticulitis History of COPD COPD (chronic obstructive pulmonary disease) Anemia Chronic heart failure with preserved ejection fraction (HFpEF) Hyperlipidemia Right lumbar radiculopathy CKD (chronic kidney disease), stage III Hypertension Chronic kidney disease PAD (peripheral artery disease) Renal cyst History of TIA (transient ischemic attack) Bilateral carotid artery stenosis Claudication RLS (restless legs syndrome) Diverticulosis TIA (transient ischemic attack) Vertigo Leg edema Dyslipidemia Home Medications ???Medication ???Instructions ???Recorded ???Last Taken ???Type atorvastatin 40 mg tablet 40 mg PO QHS cholesterol 02/22/16 11/27/24 History clopidogrel 75 mg tablet 75 mg PO DAILY BLOOD THINNER 02/2111/28/24 History albuterol sulfate 90 mcg/actuation 2 puff inhalation Q4H PRN 09/27/24 History aerosol inhaler shortness of breath or wheezing pramipexole 1.5 mg tablet 1.5 mg PO QHS restless leg syndrom e 08/18/23 11/27/24 History polysaccharide iron complex 150 mg 150 mg PO DAILY supplement 30 da ys 10/12/23 11/28/24 Rx iron capsule (Ferrex) #30 caps acetaminophen 500 mg tablet 1,000 mg PO Q6H PRN pain 02/14/24 Unknown History arformoterol 15 mcg/2 mL solution 15 mcg inhalation BID breathing 0 02/14/24 11/28/24 History for nebulization duloxetine 20 mg capsule,delayed 60 mg PO DAILY mental health 02/1311/28/24 History release spironolactone 25 mg tablet 25 mg PO DAILY diuretic 02/14/24 0 11/28/24 History cholecalciferol (vitamin D3) 125 125 mcg PO DAILY 30 days #30 caps 06/08/24 11/28/24 Rx mcg (5,000 unit) capsule furosemide 40 mg tablet 40 mg PO BID FLUID RETENTION 09/2411/28/24 History pantoprazole 40 mg tablet,delayed 40 mg PO BID reflux 09/24/2411/15 History release budesonide 0.5 mg/2 mL suspension 0.5 mg inhalation BID breathing 0 11/28/24 11/28/24 History for nebulization carvedilol 25 mg tablet 25 mg PO BID 11/28/24 11/28/24 His tory magnesium oxide 400 mg PO DAILY 11/28/24 11/28/24 History potassium chloride 20 mEq/15 mL 20 meq PO DAILY 11/28/24 11/28/24 History oral liquid Allergy/AdvReac Type Severity Reaction Status Date / Time lisinopril Allergy edema Verified 11/28/24 13:34 aspirin AdvReac Upset Verified 11/28/24 13:34 Stomach Family History Mother Heart disease Surgical History History of thyroid surgery History of carotid angioplasty History of kidney stones History of basal cell carcinoma excision History of total hysterectomy Social History household members: none housing: house Smoking Status: Former smoker how long ago did patient quit smokin years ago alcohol intake: current alcohol intake frequency: holidays/special occasions only details: rare substance use type: does not use caffeine: Yes Type: coffee Number of servings: 1 ROS ROS ED Review of Systems ROS Unobtainable: other Constitutional Constitutional ED: Repor (more content not included)... Normal [facility] Eosinophil percentageOrdered By: Tamanna Disla on 11-28-2024 Eosinophils/100 WBC (Bld) 1.1 % 0-5 [facility] Comment on above: Performed By: #### L 501.080 #### [facility] [address] [place], [place], [address] Erythrocyte distribution wid th ratioOrdered By: Tamanna Disla on 11-28-2024 Erythrocyte distribution width (RBC) [Ratio] 13.5 % 11.6-14.6 [facility] Comment on above: Performed By: #### L 501.080 #### [facility] [address] [place], [address] Erythrocyte distribution wid th standard deviationOrdered By: Tamanna Disla on 11-28-2024 Erythrocyte distribution width (RBC) [Ratio] 49.4 fl High 35.1-43.9 [facility] Glomerular filtration rate ( GFR) estimation/1.73 sq m using serum, plasma, or whole bOrdered By: Tamanna Disla on 11-28-2024 GFR/1.73 sq M.predicted among non-blacks MDRD (S/P/Bld) [Vol rate/Area] 29 mL/min/{1.73_m2} Low >60 [facility] Comment on above: mL/min/1.73m2 CKD-EP I Creatinine Equation (2020) Result Comment: mL/m in/1.73m2 CKD-EPI Creatinine Equation (2020) Performed By: #### L 501.080 #### [facility] [address] [place], [address] Hemoglobin measurementOrdere d By: Tamanna Disla on 11-28-2024 Hemoglobin (Bld) [Mass/Vol] 10.0 g/dL Low 12.0-15. 0 [facility] Comment on above: Performed By: #### L 501.080 #### [facility] [address] [place], [address] Immature granulocytes/100 WB C Auto (Bld)Ordered By: Tamanna Disla on 11-28-2024 Immature granulocytes/100 WBC (Bld) 0.200 % 0.0-0.9 [facility] Comment on above: IG% - Immature Granu locytes (promyelocytes, myelocytes and metamyelocytes) > 1% indicates that a LEFT SHIFT is Present. Ketones Test strip Ql (U)Ord ered By: Tamanna Disla on 11-28-2024 Ketones Ql (U) Negative Negative [facility] Lactic Acidon 11-28-2024 Lactate [Moles/Vol] mmol/L Normal 0.0-2.0 [facility] Comment on above: Order Comment: Y Performed By: #### L 501.2276 #### [facility] [address] [place], [address] Lactate [Moles/Vol] 2.2 mmol/L Invalid Interpretation Code 0.0-2.0 [facility] Comment on above: Order Comment: Y Result Comment: Crit ical Result(s) Called at: 1449 by:??DENISE ACEVEDO TO LAI ENRIQUE Results read back by same. Performed By: #### L 501.080 #### [facility] [address] [place], [address] Lactic acid measurementOrder ed By: Jay De Luna on 11-28-2024 Lactate [Moles/Vol] mmol/L 0.0-2.0 [facility] MCV (mean corpuscular volume ) determinationOrdered By: Tamanna Disla on 11-28-2024 MCV (RBC) [Entitic vol] 99.0 fL 81-99 [facility] Comment on above: Performed By: #### L 501.080 #### [facility] [address] [facility] [id number] Mean corpuscular hemoglobin (MCH) determinationOrdered By: Tamanna Disla on 11-28-2024 MCH (RBC) [Entitic mass] 32.3 pg High 27.0-32.0 [facility] Comment on above: Performed By: #### L 501.080 #### [facility] [address] [facility] [id number] Mean corpuscular hemoglobin concentration (MCHC) determinationOrdered By: Tamanna Disla on 11-28-2024 MCHC (RBC) [Mass/Vol] 32.6 g/dL Normal 32-36 [facility] Comment on above: Performed By: #### L 501.080 #### [facility] [address] [facility] [id number] Mean platelet volume determi nationOrdered By: Tamanna Disla on 11-28-2024 Platelet mean volume (Bld) [Entitic vol] 10.8 fL Normal 6.2-12.0 [facility] Comment on above: Performed By: #### L 501.080 #### [facility] [address] [facility] [phone] Microscopic analysis of urin e for red blood cells (RBC)Ordered By: Tamanna Disla on 11-28-2024 Microscopic analysis of urine for red blood cells (RBC) 0-5 SEEN /hpf 0-5 [facility] Monocyte percentageOrdered B y: Tamanna Disla on 11-28-2024 Monocytes/100 WBC (Bld) 8.6 % 0-10 [facility] Comment on above: Performed By: #### L 501.080 #### [facility] [address] [place], [address] Mucus LM Ql (Urine sed)Order ed By: Tamanna Yangclaudette on 11-28-2024 Mucus Ql (Urine sed) 0 SEEN /hpf [facility] Neutrophil percentageOrdered By: Tamanna Naif on 11-28-2024 Neutrophils/100 WBC (Bld) 80.7 % High 47-70 [facility] Comment on above: Performed By: #### L 501.080 #### [facility] [address] [place], [place], [id number] Nitrite Test strip Ql (U)Ord ered By: Tamanna Yangclaudette on 11-28-2024 Nitrite Ql (U) Negative Negative [facility] Nucleated red blood cell per centageOrdered By: Tamanna Naif on 11-28-2024 Nucleated RBC/100 WBC (Bld) [Ratio] 0 % 0-5 [facility] Platelet countOrdered By: Re aubrey Disla on 11-28-2024 Platelets (Bld) [#/Vol] 131 10*3/uL Low 150-450 [facility] Comment on above: Performed By: #### L 501.080 #### [facility] [address] [place], [place], [address] Potassium measurement (mass/ volume)Ordered By: Tamanna Naif on 11-28-2024 Potassium (Unsp spec) [Mass/Vol] 4.0 mmol/L 3.3-5.1 [facility] Protein Test strip Ql (U)Ord ered By: Rem Ungclaudette on 11-28-2024 Protein Ql (U) 30 mg/dl High Negative [facility] Serum creatinine measurement (mass/volume)Ordered By: Rem Naif on 11-28-2024 Creatinine [Mass/Vol] 1.68 mg/dL High 0.70-1.20 [facility] Comment on above: Performed By: #### L 501.080 #### [facility] [address] [place], [address] Serum glucose measurement (m ass/volume)Ordered By: Tamanna Disla on 11-28-2024 Glucose [Mass/Vol] 128 mg/dL High 70-99 [facility] Comment on above: Performed By: #### L 501.080 #### [facility] [address] [place], [address] Serum or plasma calcium magalis urement (mass/volume)Ordered By: Demetriceus Disla on 11-28-2024 Calcium [Mass/Vol] 8.7 mg/dL 7.6-11.0 [facility] Comment on above: Performed By: #### L 501.080 #### [facility] [address] [place], [address] Serum or plasma urea nitroge n measurement (mass/volume)Ordered By: Tamanna Disla on 11-28-2024 Urea nitrogen [Mass/Vol] 49 mg/dL High 4-19 [facility] Comment on above: Performed By: #### L 501.080 #### [facility] [address] [place], [address] Sodium levelOrdered By: Gayathri rachel Naif on 11-28-2024 Sodium [Moles/Vol] 138 mmol/L 133-145 [facility] Comment on above: Performed By: #### L 501.080 #### [facility] [address] [place], [address] Squamous epithelial cells de tection in urine sediment by light microscopyOrdered By: Tamanna Disla on 11-28-2024 Epithelial cells.squamous LM Ql (Urine sed) 0-5 SEEN /hpf 5-10 [facility] Urinalysis, Completeon 11-28 EPI,SQUAMOUS 0-5 SEEN Normal -10 [facility] Comment on above: Order Comment: CLEAN CATCH Performed By: #### L 400.0001 #### [facility] [address] [place], [place], [id number] RBC 0-5 SEEN Normal 0-5 [facility] Comment on above: Order Comment: CLEAN CATCH Performed By: #### L 400.0001 #### [facility] [address] [place], [address] WBC 5-10 SEEN Normal 0-5 [facility] Comment on above: Order Comment: CLEAN CATCH Performed By: #### L 400.0001 #### [facility] [address] [place], [address] BACTERIA 0 SEEN Normal None Seen [facility] Comment on above: Order Comment: CLEAN CATCH Performed By: #### L 400.0001 #### [facility] [address] [place], [address] Mucus Ql (Urine sed) 0 SEEN Normal [facility] Comment on above: Order Comment: CLEAN CATCH Performed By: #### L 400.0001 #### [facility] [address] 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 director Abnormal [facility] Bacteria identified Cx Nom (U) Positive Abnormal [facility] Urine glucose detectionOrder ed By: Tamanna Disla on 11-28-2024 Glucose Ql (U) Normal mg/dl Normal [facility] Urine leukocyte esterase det ection by dipstickOrdered By: Tamanna Disla on 11-28-2024 Leukocyte esterase Test strip Ql (U) 500 /ul High Negative [facility] Urine pHOrdered By: Tamanna Ring gur on 11-28-2024 pH (U) 7.0 [pH] 5.0 - 8.0 [facility] Urine sediment bacteria coun t by microscopy (number/high power field)Ordered By: Tamanna Disla on 11-28-2024 Bacteria LM.HPF (Urine sed) [#/Area] 0 /[HPF] None Seen [facility] Urine specific gravity measu rementOrdered By: Tamanna Yangclaudette on 11-28-2024 Specific gravity (U) [Rel density] 1.005 1.002-1.03 0 [facility] Urine urobilinogen measureme ntOrdered By: Tamanna Disla on 11-28-2024 Urobilinogen Ql (U) Normal mg/dl Normal [facility] White blood cell (WBC) count Or[facility]: [facility] on 11-28-2024 WBC (Bld) [#/Vol] 8.8 10*3/uL 4.4-11.0 [facility] Comment on above: Performed By: #### L 501.080 #### [facility] [address] [place], [address] White blood cell countOrdere d By: Tamanna Disla on 11-28-2024 White blood cell count 5-10 SEEN /hpf 0-5 [facility] CNPNon 11-16-2024 CNPN Telephone (NALLELY) DICK ARTIS ([id number]) 1935 F Date Time Provider Department 11/16/24 TONA KIM During your visit today, we recorded the following information about you: Dayan Cornell MA 11/16/2024 12:09 PM Signed Pt was told to call today if she had not heard from the hospital to arrange the EMG that was ordered. Will check with office to see if there is a number to contact to assist. MARIAH Finch Amy M, MA 11/16/2024 2:18 PM Signed Order faxed again to [facility]. Allergies As of Date: 11/16/2024 Noted Allergy Reaction AMLODIPINE 02/16/2016 7 - Swelling Comments: Lower leg edema. ASPIRIN 05/19/2005 16 - Unknown LISINOPRIL 09/06/2011 3 - Cough REQUIP (ROPINIROLE) 09/26/2007 14 - Other: See Comments Comments: Very anxious Date Reviewed: 11/12/2024 Reviewed by: Alie Cr MA - Fully Assessed Reason for Visit: Patient Update [1234] Prescriptions as of 11/16/2024 - albuterol HFA (VENTOLIN HFA) 90 mcg/actuation inhaler Inhale 2 Puffs as instructed every 4 hours as needed for wheezing/shortness of breath. May take 2 puffs prior to exercise - potassium chloride 20 mEq/15 mL solution Take 15 mL by mouth once daily. - cholecalciferol, vitamin D3, (VITAMIN D3 ORAL) Take 1 tablet by mouth once daily. - iron polysaccharide complex (FERREX-150) 150 mg iron capsule Take 1 capsule by mouth once daily. - DULoxetine (CYMBALTA) 60 mg capsule Take 1 capsule by mouth once daily. - clopidogrel (PLAVIX) 75 mg tablet Take 1 tablet by mouth once daily. - atorvastatin (LIPITOR) 40 mg tablet Take 1 tablet by mouth once daily. - arformoterol (BROVANA) 15 mcg/2 mL nebulizer solution Inhale 2 mL as instructed every 12 hours. - budesonide (PULMICORT) 0.5 mg/2 mL nebulizer solution Use 2 mL via nebulizer two times a day. - carvedilol (COREG) 25 mg tablet Take 1 tablet by mouth two times a day with meals. - furosemide (LASIX) 40 mg tablet Take 1 tablet by mouth two times a day. - pantoprazole DR (PROTONIX) 40 mg tablet Take 1 tablet by mouth two times a day. - pramipexole (MIRAPEX) 1.5 mg tablet Take 1 tablet by mouth daily at bedtime. - spironolactone (ALDACTONE) 25 mg tablet Take 1 tablet by mouth once daily. - magnesium oxide (MAG-OX) 400 mg (241.3 mg magnesium) tablet Take 1 tablet by mouth once daily. - OXYGEN, HOME THERAPY, 2 L/min by Nasal Cannula route as directed. 4L/min at night - acetaminophen (TYLENOL) 500 mg tablet Take 1,000 mg by mouth every 6 hours as needed for pain (EVERY 6 HOURS NEEDED FOR PAIN). 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] 05/24/2008 HTN (hypertension), benign [I10] 08/12/2009 Hypokalemia [E87.6] 08/12/2009 COPD (chronic obstructive pulmonary disease) [J*08/24/2010 S/P unilateral salpingo-oophorectomy [Z90.721] 02/18/2011 S/P WILFREDO (total abdominal hysterectomy) [Z90.710]02/18/2011 Hyperlipidemia [E78.5] 04/21/2011 Hypertension [I10] 04/21/2011 Vitamin D deficiency [E55.9] 03/06/2012 Nonspecific abnormal finding in stool contents *03/31/2012 02/08/2024 Acute gastritis without mention of hemorrhage [*03/31/2012 02/08/2024 Calculi, ureter [N20.1] 06/02/2012 HTN (hypertension) [I10] 12/11/2014 04/07/2015 Essential hypertension [I10] 04/07/2015 Mixed simple and mucopurulent chronic bronchiti*01/10/2016 Mixed hyperlipidemia [E78.2] 01/10/2016 Herpes zoster without complication [B02.9] 02/28/2016 02/08/2024 Bifascicular block [I45.2] 10/11/2016 Obesity, Class I, BMI 30-34.9 [E66.811] 07/30/2018 Stage 3b chronic kidney disease (HCC) [N18.32] 07/30/2018 TIA (transient ischemic attack) [G45.9] 05/26/2020 Carotid artery stenosis [I65.29] 01/23/2021 PAD (peripheral artery disease) (HCC) [I73.9] 11/11/2021 Chronic bilateral thoracic back pain [M54.6, G8*04/04/2023 Lumbar pain [M54.50] 04/04/2023 Osteopenia of lumbar spine [M85.88] 05/23/2023 Type 2 diabetes mellitus with hyperglycemia, wi*10/19/2023 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.*11/30/2023 Chronic hypoxemic respiratory failure (HCC) [J9*10/05/2024 Acute on chronic heart failure with preserved e*10/05/2024 Type 2 diabetes mellitus with chronic kidney di*10/05/2024 Encounter Status:Closed by MELISSA CONDE on 11/16/24 [facility] CNOVon 11-12-2024 CNOV Office Visit (ORTHWS ) DICK ARTIS ([id number]) 1935 F Date Time Provider Department 11/12/24 11:00 AM TONA KIM During your visit today, we recorded the following information about you: Alie Cr MA 11/12/2024 1:30 PM Signed Patient presents with: Left Shoulder - New, Pain Right Shoulder - New, Pain AMB ROOMING INTAKE FLOWSHEET DATA Pain Pain Level: 8 Pain Location: Arm-Right Description: Aching, Throbbing Duration Amount of Time: 6 Duration Units: Hours Frequency: Intermittent Intervention/Comfort measure: Massage, Other: See comment Comments: artheritis pain cream Patient here for evaluation bilateral shoulder pain. No specific injury. States her pain started about 6-8 months ago. Her right shoulder is worse than her left. States her pain radiates from her shoulder all the way down her arm to her fingers. Dr. Manzo referring patient. X-rays done on 10/05/24. Patient states she has been applying arthritis cream and taking Tylenol for the pain and helps. Jac Johnson with patient today. Tona Kim PA-C 11/12/2024 1:30 PM Signed Tona Kim PA-C Department of Orthopaedics Orthopaedics [address] [facility] [address] Dept: [phone] Dept November 12, 2024 CHIEF COMPLAINT: New and Pain of the Left Shoulder and New and Pain of the Right Shoulder Right Arm Pain: - Pain radiates from the upper arm down to the middle and ring fingers. - Symptoms present for several months, exacerbated by use of the right hand. - Describes pain as constant, denies numbness or burning. - Reports soreness in the tricep area and forearm region. - Denies issues with the left arm. - Recent shoulder X-rays on 10/05 revealed a rotator cuff tear and arthritis in the right shoulder. - cervical X-rays from 2013 showed disc disease. CVA: - History of a mini stroke years ago. - Currently on anticoagulant therapy. - History of dysphagia, recently treated with Botox injections in the throat. - Experiences frequent loss of voice. - Unable to wear scarves or upper dentures due to choking sensation. ASSESSMENT: M79.641 Right hand pain (primary encounter diagnosis) M50.10 Cervical disc disorder with radiculopathy of cervical region M75.121 Complete tear of right rotator cuff, unspecified whether traumatic PLAN: 1. Right hand pain (M79.641) 2. Cervical disc disorder with radiculopathy of cervical region (M50.10) - Differential diagnosis includes cervical radiculopathy and carpal tunnel syndrome. - Ordered EMG/NCS to evaluate for nerve compression or entrapment; will fax order to [facility]. - Discussed potential need to hold anticoagulation therapy prior to EMG/NCS; advised to consult with prescribing physician. 3. Complete tear of right rotator cuff, unspecified whether traumatic (M75.121) - Right shoulder X-rays from 10/05 reveal a complete rotator cuff tear and mild glenohumeral arthritis. - Discussed findings with patient; advised that current symptoms are likely unrelated to shoulder pathology. Will continue to monitor patient for Right hand pain (primary encounter diagnosis) Cervical disc disorder with radiculopathy of cervical region Complete tear of right rotator cuff, unspecified whether traumatic, patient to schedule visit as per follow up discussed. Ms. Dick Artis was advised as to contrast therapies and/or to take analgesics/anti-inflam matories as needed and all contraindications were reviewed. OBJECTIVE: Ms. Dick Artis is a pleasant 89 year old in no apparent distress. Gen:There were no vitals taken for this visit. nl development, non obese, no deformities ENT: Normocephalic, normal hearing, moist mucosa CV: Pulses:Radial= 2+ and symmetric, capillary refill < 2 secs, no peripheral edema/varicosities Skin: no rash, bruising or lesions. Good turgor. Psych: cooperative and appropriate, alert and oriented x 3, good mood and affect. Musculoskeletal: Supple range of motion of the cervical spine without pain. Spurling signs are negative. No atrophy of the deltoid and shoulder musculature. Right shoulder is nontender to palpation over the SC joint, clavicle and AC joint. No tenderness to palpation over the posterior shoulder, nontender anterior lateral corner of the shoulder and greater tuberosity. Nontender at the bicipital groove and coracoid. Active range of motion is 85 degrees of forward elevation. Tenderness palpation over the right biceps region, no tenderness over the triceps. Some discomfort over the right cubital tunnel, no discomfort on palpation at the medial or lateral epicondyle of the elbow. Mid forearm discomfort noted over the flexor and extensor aspects. Patient is able to gently flex and extend the wrist without any discomfort. Also able to form a full composite fist and extend (more content not included)... Normal [facility] 11[facility]08[facility]2024 [facility]INDY[facility] DICK ARTIS ([id number]) 1935 F Date Time Provider Department 11/08/24 ALINA DELVALLE During your visit today, we recorded the following information about you: Tiera Doyle LPN 11/08/2024 10:02 AM Signed Patient called. Verified name and date of . Patient reports her nebulizer machine is not functioning properly and is over six years old. She requests new order to be sent to [facility]. SAMI Naidu Kathleen, LPN 11/08/2024 1:20 PM Signed Order faxed to [facility] Angélica Franco LPN Allergies As of Date: 11/08/2024 Noted Allergy Reaction AMLODIPINE 02/16/2016 7 - Swelling Comments: Lower leg edema. ASPIRIN 05/19/2005 16 - Unknown LISINOPRIL 09/06/2011 3 - Cough REQUIP (ROPINIROLE) 09/26/2007 14 - Other: See Comments Comments: Very anxious Date Reviewed: 10/05/2024 Reviewed by: Tory Pike MA - Fully Assessed Reason for Visit: Prescription [Other] Primary Visit Diagnosis:Chronic obstructive pulmonary disease, unspecified COPD type (HCC) [J44.9] Order(s):NEBULIZER, WITH COMPRESSOR [[id number]] Order #: [id number] Prescriptions as of 11/08/2024 - albuterol HFA (VENTOLIN HFA) 90 mcg/actuation inhaler Inhale 2 Puffs as instructed every 4 hours as needed for wheezing/shortness of breath. May take 2 puffs prior to exercise - potassium chloride 20 mEq/15 mL solution Take 15 mL by mouth once daily. - cholecalciferol, vitamin D3, (VITAMIN D3 ORAL) Take 1 tablet by mouth once daily. - iron polysaccharide complex (FERREX-150) 150 mg iron capsule Take 1 capsule by mouth once daily. - DULoxetine (CYMBALTA) 60 mg capsule Take 1 capsule by mouth once daily. - clopidogrel (PLAVIX) 75 mg tablet Take 1 tablet by mouth once daily. - atorvastatin (LIPITOR) 40 mg tablet Take 1 tablet by mouth once daily. - arformoterol (BROVANA) 15 mcg/2 mL nebulizer solution Inhale 2 mL as instructed every 12 hours. - budesonide (PULMICORT) 0.5 mg/2 mL nebulizer solution Use 2 mL via nebulizer two times a day. - carvedilol (COREG) 25 mg tablet Take 1 tablet by mouth two times a day with meals. - furosemide (LASIX) 40 mg tablet Take 1 tablet by mouth two times a day. - pantoprazole DR (PROTONIX) 40 mg tablet Take 1 tablet by mouth two times a day. - pramipexole (MIRAPEX) 1.5 mg tablet Take 1 tablet by mouth daily at bedtime. - spironolactone (ALDACTONE) 25 mg tablet Take 1 tablet by mouth once daily. - magnesium oxide (MAG-OX) 400 mg (241.3 mg magnesium) tablet Take 1 tablet by mouth once daily. - OXYGEN, HOME THERAPY, 2 L/min by Nasal Cannula route as directed. 4L/min at night - acetaminophen (TYLENOL) 500 mg tablet Take 1,000 mg by mouth every 6 hours as needed for pain (EVERY 6 HOURS NEEDED FOR PAIN). 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] 05/24/2008 HTN (hypertension), benign [I10] 08/12/2009 Hypokalemia [E87.6] 08/12/2009 COPD (chronic obstructive pulmonary disease) [J*08/24/2010 S/P unilateral salpingo-oophorectomy [Z90.721] 02/18/2011 S/P WILFREDO (total abdominal hysterectomy) [Z90.710]02/18/2011 Hyperlipidemia [E78.5] 04/21/2011 Hypertension [I10] 04/21/2011 Vitamin D deficiency [E55.9] 03/06/2012 Nonspecific abnormal finding in stool contents *03/31/2012 02/08/2024 Acute gastritis without mention of hemorrhage [*03/31/2012 02/08/2024 Calculi, ureter [N20.1] 06/02/2012 HTN (hypertension) [I10] 12/11/2014 04/07/2015 Essential hypertension [I10] 04/07/2015 Mixed simple and mucopurulent chronic bronchiti*01/10/2016 Mixed hyperlipidemia [E78.2] 01/10/2016 Herpes zoster without complication [B02.9] 02/28/2016 02/08/2024 Bifascicular block [I45.2] 10/11/2016 Obesity, Class I, BMI 30-34.9 [E66.811] 07/30/2018 Stage 3b chronic kidney disease (HCC) [N18.32] 07/30/2018 TIA (transient ischemic attack) [G45.9] 05/26/2020 Carotid artery stenosis [I65.29] 01/23/2021 PAD (peripheral artery disease) (HCC) [I73.9] 11/11/2021 Chronic bilateral thoracic back pain [M54.6, G8*04/04/2023 Lumbar pain [M54.50] 04/04/2023 Osteopenia of lumbar spine [M85.88] 05/23/2023 Type 2 diabetes mellitus with hyperglycemia, wi*10/19/2023 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.*11/30/2023 Chronic hypoxemic respiratory failure (HCC) [J9*10/05/2024 Acute on chronic heart failure with preserved e*10/05/2024 Type 2 diabetes mellitus with chronic kidney di*10/05/2024 Encounter Status:Closed by DIANA CASTELLON on 11/08/24 Normal [facility] Duplex ultrasound of carotid artery reportOrdered By: Herrera Goodrich on 11-04-2024 Study report [facility] [address] [place] [id number] Carotid Duplex Ultrasound 11/02/24 0847 MR#: [id number] Acct: [id number] Name: DICK ARTIS Rep #:[id number] : 1935 89 From: Herrera Bee Attending Dr: Dr. Juvenal Thompson MD Status: REG CLI Ordering Dr: Juvenal Thompson MD Date: 11/02/24 Location: [facility] Sex: F C Admitted: Reason For Study Reason For Study: Bilateral carotid bruit Rt. Velocities/BP Lt. Velocities/BP Prox CCA 51.3/12.6 cm/sec. Prox CCA 72.9/16.8 cm/sec. Mid CCA 65.5/20.1 cm/sec. Mid CCA 47.6/19 cm/sec. Dist CCA 68.3/15.4 cm/sec. Dist CCA 135.6/31.9 cm/sec. Prox ICA 209.1/36.5 cm/sec. Prox ICA 151.1/18.9 cm/sec. Mid ICA 159.4/26.8 cm/sec. Mid ICA 112.6/38 cm/sec. Dist ICA 111.3/24.8 cm/sec. Dist ICA 95.5/27.9 cm/sec. Rt. ICA/CCA = 3.19. Lt. ICA/CCA = 3.17. Prox ECA 656.1/34 cm/sec. Prox ECA 221.1/3.4 cm/sec. Rt. Vert. 75.4/15.2 cm/sec. Lt. Vert. 30.1/7.3 cm/sec. Right Extracranial There is heterogeneous, irregular atherosclerotic plaque noted in the right common carotid artery. There is heterogeneous, irregular atherosclerotic plaque noted in the right internal carotid artery. There is heterogeneous, irregular atherosclerotic plaque noted in the right external carotid artery. Antegrade flow is noted in the right vertebral artery. Left Extracranial There is heterogeneous, irregular atherosclerotic plaque noted in the left common carotid artery. There is heterogeneous, irregular atherosclerotic plaque noted in the left internal carotid artery. There is heterogeneous, irregular atherosclerotic plaque noted in the left external carotid artery. Antegrade flow is noted in the left vertebral artery. Procedure Carotid Duplex 42672. This is a Carotid Duplex examination using B-mode, color flow and specral Doppler. Exam performed in department. VL/Carotid Duplex Ultrasound Interpretation Summary Moderate (50-69%) stenosis right extracranial internal carotid. Moderate (50-69%) stenosis left extracranial internal carotid. Patent and antegrade vertebrals bilaterally. Ordering Physician: Juvenal Thompson Referring Physician: Viktoriya Manzo Performed By: Cynthia Max RVT 11/04/24 1015 Date _ Herrera Goodrich MD CC: Dr. Viktoriya Manzo MD; Dr. Juvenal Thompson MD ~ Date Dictated: 11/02/24 0847 Date Transcribed: 11/04/24 101 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: Signed [facility] Work Phone: Carotid Duplex Ultrasoundon 11-02-2024 Carotid Duplex Ultrasound [facility] [address] [place] [address] Carotid Duplex Ultrasound 11/02/24846 MR#: [id number] Acct: [id number] Name: DICK ARTIS Rep #: [id number] : 1935 89 From: Herrera Goodrich MD Attending Dr: Dr. Juvenal Thompson MD Status: RE G CLI Ordering Dr: Juvenal Thompson MD Date: 11/02/24 Location: [facility] Sex: F C Admitted: Reason For Study Reason For Study: Bilateral carotid bruit Rt. Velocities/BP Lt. Velocities/BP Prox CCA 51.3/12.6 cm/sec. Prox CCA 72.9/16.8 cm/sec. Mid CCA 65.5/20.1 cm/sec. Mid CCA 47.6/19 cm/sec. Dist CCA 68.3/15.4 cm/sec. Dist CCA 135.6/31.9 cm/sec. Prox ICA 209.1/36.5 cm/sec. Prox ICA 151.1/18.9 cm/sec. Mid ICA 159.4/26.8 cm/sec. Mid ICA 112.6/38 cm/sec. Dist ICA 111.3/24.8 cm/sec. Dist ICA 95.5/27.9 cm/sec. Rt. ICA/CCA = 3.19. Lt. ICA/CCA = 3.17. Prox ECA 656.1/34 cm/sec. Prox ECA 221.1/3.4 cm/sec. Rt. Vert. 75.4/15.2 cm/sec. Lt. Vert. 30.1/7.3 cm/sec. Right Extracranial There is heterogeneous, irregular atherosclerotic plaque noted in the right common carotid artery. There is heterogeneous, irregular atherosclerotic plaque noted in the right internal carotid artery. There is heterogeneous, irregular atherosclerotic plaque noted in the right external carotid artery. Antegrade flow is noted in the right vertebral artery. Left Extracranial There is heterogeneous, irregular atherosclerotic plaque noted in the left common carotid artery. There is heterogeneous, irregular atherosclerotic plaque noted in the left internal carotid artery. There is heterogeneous, irregular atherosclerotic plaque noted in the left external carotid artery. Antegrade flow is noted in the left vertebral artery. Procedure Carotid Duplex 51159. This is a Carotid Duplex examination using B-mode, color flow and specral Doppler. Exam performed in department. VL/Carotid Duplex Ultrasound Interpretation Summary Moderate (50-69%) stenosis right extracranial internal carotid. Moderate (50-69%) stenosis left extracranial internal carotid. Patent and antegrade vertebrals bilaterally. Ordering Physician: Juvenal Thompson Referring Physician: Viktoriya Manzo Performed By: Cynthia Max RVT 11/04/24 1015 Date Herrera Goodrich MD CC: Dr. Viktoriya Manzo MD; Dr. Juvenal Thompson MD Date Dictated: 11/02/24 0847 Date Transcribed: 11/04/24 1015 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: Signed Normal [facility] Cardiology Visit Reporton Cardiology Visit Report [facility] [address] [place] [address] OFFICE VISIT Date of Service: 10/17/24 MR#: [id number] Acct: [id number] Name: DICK ARTIS Rep #: [id number] : 1935 Provider: Dr. Juvenal diaz MD Age/Sex: 89/F Location[facility] Status: Signed HPI HPI History of Present Illness Details: Patient is a very pleasant 89-year-old white female that comes in with her son today. She is here for monitoring of her cardiovascular status. Patient carries a history of hypertension it has been well-controlled on her current medical therapy. She also has a history of hyperlipidemia and peripheral vascular disease with bilateral carotid disease. She is status post left internal carotid endarterectomy remotely and has a history of a right internal carotid artery stenosis of 50 to 69% on ultrasound done in August 2023. The patient currently denies any TIA type symptoms. She denies any chest pain she has chronic dyspnea on exertion and shortness of breath due to COPD and recurrent pneumonias. She is on home oxygen continuously. The patient brought in her blood pressure readings which were all well-controlled and her O2 saturations stay in the upper 80s to low 90%'s. Patient's last admission was August 2023. Prior to that she had been in and out of the hospital multiple times and the transitional care unit as well. Patient had an echocardiogram that showed an EF of 70% and pulmonary artery systolic pressure of 30 mmHg when she was admitted volume overloaded. This presentation had the appearance of heart failure with preserved ejection fraction although the patient does not have diastolic dysfunction on her echo. She does have a history of hypertension and some hypertrophy on the echo. She has remained out of the hospital on Lasix 40 mg daily. Most recent lab work showed that her BUN was 42 creatinine of 1.42 given a GFR of 36. She does have a schedule CT for her possible renal mass in the near future. The patient denies any lower extremity edema she reports she is doing fairly well in her home environment. She lives alone and takes care of herself. She does have someone that comes in and he lps with the cleaning. Intake Vital Signs 06/06/24 23:47 09/27/24 06:03 10/17/24 13:52 Height 5 ft 2 in 5 ft 2.5 in 5 ft 2.5 in Weight: 140 lb BMI 25.2 BP 116/61 Blood Pressure Location Lt brachial Position Sitting Respiration 20 H Pulse 77 Pulse Source Monitor Pulse Oximetry (%) 87 Oxygen Delivery Method nasal canula Oxygen Flow Rate (L/min) 2 Intake Visit Reasons: 9 M FU Director Case Management Required: No Is patient in pain?: No Allergies lisinopril Allergy (Verified 10/17/24 13:52) edema aspirin Adverse Reaction (Verified 10/17/24 13:52) Upset Stomach Medications ???Medication ???Instructions ???Recorded ???Confirmed ???Type atorvastatin 40 mg tablet 40 mg PO QHS cholesterol 02/22/16 10/17/24 History clopidogrel 75 mg tablet 75 mg PO DAILY BLOOD THINNER 02/2110/17/24 History albuterol sulfate 90 mcg/actuation 2 puff inhalation BID PRN 10/17/24 History aerosol inhaler shortness of breath or wheezing pramipexole 1.5 mg tablet 1.5 mg PO QHS restless leg syndrom e 08/18/23 10/17/24 History budesonide 0.5 mg/2 mL suspension 0.25 mg inhalation BID breathing 09/09/23 10/17/24 Rx for nebulization 30 days #0 mL polysaccharide iron complex 150 mg 150 mg PO DAILY supplement 30 da ys 10/12/23 10/17/24 Rx iron capsule (Ferrex) #30 caps acetaminophen 500 mg tablet 1,000 mg PO Q6H PRN pain 02/14/24 10/17/24 History arformoterol 15 mcg/2 mL solution 15 mcg inhalation BID breathing 0 02/14/24 10/17/24 History for nebulization duloxetine 20 mg capsule,delayed 60 mg PO DAILY mental health 02/1310/17/24 History release spironolactone 25 mg tablet 25 mg PO QDAY diuretic 02/14/24 History cholecalciferol (vitamin D3) 125 125 mcg PO DAILY 30 days #30 caps 06/08/24 10/17/24 Rx mcg (5,000 unit) capsule carvedilol 12.5 mg tablet 25 mg PO BID 09/24/24 10/17/24 His tory furosemide 40 mg tablet 40 mg PO Q12H FLUID RETENTION 09/1510/17/24 History magnesium 200 mg tablet 400 mg PO DAILY 09/24/24 10/17/24 History pantoprazole 40 mg tablet,delayed 40 mg PO Q12H reflux 09/24/2409/11 History release potassium chloride 20 mEq 20 meq PO DAILY supplement 5 10/17/24 History tablet,extended release(part/cryst) Ejection fraction %: 70 Have you fallen in the past year?: No [facility] Medical History (Updated 10/17/24 @ 14:[address] Juvenal Thompson MD) History of chronic heart failure Cancer Thyroid disease Ambulates with cane History of renal disease TIA (transient ischemic attack) Acute diverticulitis Wears (more content not included)... Normal [facility] 10-15-2024 CNPN Telephone (PULMWS) DICK ARTIS ([id number]) 1935 F Date Time Provider Department 10/15/24 ALINA DELVALLE During your visit today, we recorded the following information about you: Allergies As of Date: 10/15/2024 Noted Allergy Reaction AMLODIPINE 02/16/2016 7 - Swelling Comments: Lower leg edema. ASPIRIN 05/19/2005 16 - Unknown LISINOPRIL 09/06/2011 3 - Cough REQUIP (ROPINIROLE) 09/26/2007 14 - Other: See Comments Comments: Very anxious Date Reviewed: 10/05/2024 Reviewed by: Tory Pike MA - Fully Assessed Visit Diagnoses:Exercise-ind uced asthma [J45.990] Comment:after RSV infection Chronic obstructive pulmonary disease with acute exacerbation (HCC) [J44.1] Order(s):albuterol HFA (VENTOLIN HFA) 90 mcg/actuation inhalerInhale 2 Puffs as instructed every 4 hours as needed for wheezing/shortness of breath. May take 2 puffs prior to exerciseDisp: 54 gRfl: 3 Prescriptions as of 10/15/2024 - albuterol HFA (VENTOLIN HFA) 90 mcg/actuation inhaler Inhale 2 Puffs as instructed every 4 hours as needed for wheezing/shortness of breath. May take 2 puffs prior to exercise - potassium chloride 20 mEq/15 mL solution Take 15 mL by mouth once daily. - cholecalciferol, vitamin D3, (VITAMIN D3 ORAL) Take 1 tablet by mouth once daily. - iron polysaccharide complex (FERREX-150) 150 mg iron capsule Take 1 capsule by mouth once daily. - DULoxetine (CYMBALTA) 60 mg capsule Take 1 capsule by mouth once daily. - clopidogrel (PLAVIX) 75 mg tablet Take 1 tablet by mouth once daily. - atorvastatin (LIPITOR) 40 mg tablet Take 1 tablet by mouth once daily. - arformoterol (BROVANA) 15 mcg/2 mL nebulizer solution Inhale 2 mL as instructed every 12 hours. - budesonide (PULMICORT) 0.5 mg/2 mL nebulizer solution Use 2 mL via nebulizer two times a day. - carvedilol (COREG) 25 mg tablet Take 1 tablet by mouth two times a day with meals. - furosemide (LASIX) 40 mg tablet Take 1 tablet by mouth two times a day. - pantoprazole DR (PROTONIX) 40 mg tablet Take 1 tablet by mouth two times a day. - pramipexole (MIRAPEX) 1.5 mg tablet Take 1 tablet by mouth daily at bedtime. - spironolactone (ALDACTONE) 25 mg tablet Take 1 tablet by mouth once daily. - magnesium oxide (MAG-OX) 400 mg (241.3 mg magnesium) tablet Take 1 tablet by mouth once daily. - Compression Socks, Medium misc 2 Each once daily. Or size to fit. 10-20 mmHg. On in a.m., off in evening. - OXYGEN, HOME THERAPY, 2 L/min by Nasal Cannula route as directed. 4L/min at night - acetaminophen (TYLENOL) 500 mg tablet Take 1,000 mg by mouth every 6 hours as needed for pain (EVERY 6 HOURS NEEDED FOR PAIN). 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] 05/24/2008 HTN (hypertension), benign [I10] 08/12/2009 Hypokalemia [E87.6] 08/12/2009 COPD (chronic obstructive pulmonary disease) [J*08/24/2010 S/P unilateral salpingo-oophorectomy [Z90.721] 02/18/2011 S/P WILFREDO (total abdominal hysterectomy) [Z90.710]02/18/2011 Hyperlipidemia [E78.5] 04/21/2011 Hypertension [I10] 04/21/2011 Vitamin D deficiency [E55.9] 03/06/2012 Nonspecific abnormal finding in stool contents *03/31/2012 02/08/2024 Acute gastritis without mention of hemorrhage [*03/31/2012 02/08/2024 Calculi, ureter [N20.1] 06/02/2012 HTN (hypertension) [I10] 12/11/2014 04/07/2015 Essential hypertension [I10] 04/07/2015 Mixed simple and mucopurulent chronic bronchiti*01/10/2016 Mixed hyperlipidemia [E78.2] 01/10/2016 Herpes zoster without complication [B02.9] 02/28/2016 02/08/2024 Bifascicular block [I45.2] 10/11/2016 Obesity, Class I, BMI 30-34.9 [E66.811] 07/30/2018 Stage 3b chronic kidney disease (HCC) [N18.32] 07/30/2018 TIA (transient ischemic attack) [G45.9] 05/26/2020 Carotid artery stenosis [I65.29] 01/23/2021 PAD (peripheral artery disease) (HCC) [I73.9] 11/11/2021 Chronic bilateral thoracic back pain [M54.6, G8*04/04/2023 Lumbar pain [M54.50] 04/04/2023 Osteopenia of lumbar spine [M85.88] 05/23/2023 Type 2 diabetes mellitus with hyperglycemia, wi*10/19/2023 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 Route: INHALATION Sig: Inhale (more content not included)... Normal [facility] Basic metabolic 2000 panelon 10-05-2024 Anion gap [Moles/Vol] 12 mmol/L Normal 8-15 [facility] Comment on above: Order Comment: Speci men Type: BLOOD SPECIMENOrdering Facility: [facility] Address: [address] [place] [address] Performed By: #### 2 4321-2 ####[facility] LABCLIA [id number] [place] [address] [place] Calcium [Mass/Vol] 9.5 mg/dL Normal 8.5-10.2 [facility] Comment on above: Order Comment: Speci men Type: BLOOD SPECIMENOrdering Facility: [facility] Address: [address] [place] [address] Performed By: #### 2 4321-2 ####[facility] LABCLIA [id number] [place] [address] [place] Chloride [Moles/Vol] 99 mmol/L Normal 98-107 [facility] Comment on above: Order Comment: Speci men Type: BLOOD SPECIMENOrdering Facility: [facility] Address: [address] [place] [address] Performed By: #### 2 4321-2 ####[facility] LABCLIA [id number] [place] [id number] [place] CO2 [Moles/Vol] 33 mmol/L High 22-30 [facility] Comment on above: Order Comment: Speci men Type: BLOOD SPECIMENOrdering Facility: [facility] Address: [address] [place] [address] Performed By: #### 2 4321-2 ####[facility] LABIA [id number] [place] [id number] [place] Creatinine [Mass/Vol] 1.42 mg/dL High 0.58-0.96 [facility] Comment on above: Order Comment: Speci men Type: BLOOD SPECIMENOrdering Facility: [facility] Address: [address] [place] [address] Performed By: #### 2 4321-2 ####[facility] LABIA [id number] [address] [place] Creatinine and Glomerular filtration rate.predicted panel (S/P/Bld) 36 mL/min/1.73m??? Low >=60 [facility] Comment on above: Order Comment: Speci men Type: BLOOD SPECIMENOrdering Facility: [facility] Address: [address] [place] [address] Result Comment: Rachelle mated Glomerular Filtration Rate (eGFR) is calculated using the 2020 CKD-EPI creatinine equation. This equation utilizes serum creatinine, sex, and age as parameters. The creatinine assay has traceable calibration to isotope dilution-mass spectrometry. Refer to KDIGO guidelines for clinical interpretation. In patients with unstable renal function, e.g. those with acute kidney injury, the eGFR may not accurately reflect actual GFR. Performed By: #### 2 4321-2 ####[facility] LABIA [id number] [place] [id number] [place] Glucose [Mass/Vol] 107 mg/dL High 74-99 [facility] Comment on above: Order Comment: Speci men Type: BLOOD SPECIMENOrdering Facility: [facility] Address: [address] [place] [address] Result Comment: The [place] Diabetes Association (ADA) provides guidance for cutoff values for fasting glucose and random glucose. The ADA defines fasting as no caloric intake for at least 8 hours. Fasting plasma glucose results between 100 to 125 mg/dL indicate increased risk for diabetes (prediabetes). Fasting plasma glucose results greater than or equal to 126 mg/dL meet the criteria for diagnosis of diabetes. In the absence of unequivocal hyperglycemia, results should be confirmed by repeat testing. In a patient with classic symptoms of hyperglycemia or hyperglycemic crisis, random plasma glucose results greater than or equal to 200 mg/dL meet the criteria for diagnosis of diabetes. Reference: Standards of Medical Care in Diabetes 2016, [place] [employer]. Diabetes Care. 2016.39(Suppl 1). Performed By: #### 2 4321-2 ####[facility] LABCLIA [id number] [place] [id number] [place] Potassium [Moles/Vol] 4.4 mmol/L Normal 3.7-5.1 [facility] Comment on above: Order Comment: Speci men Type: BLOOD SPECIMENOrdering Facility: [facility] Address: [address] [place] [address] Performed By: #### 2 1-2 ####[facility] LABIA [id number] [place] [id number] [place] Sodium [Moles/Vol] 144 mmol/L Normal 136-144 [facility] Comment on above: Order Comment: Gemmai men Type: BLOOD SPECIMENOrdering Facility: [facility] Address: [address] [place] [address] Performed By: #### 2 1-2 ####[facility] LABIA [id number] [place] [id number] [place] Urea nitrogen [Mass/Vol] 42 mg/dL High 7-21 [facility] Comment on above: Order Comment: Speci men Type: BLOOD SPECIMENOrdering Facility: [facility] Address: [address] [place] [address] Performed By: #### 2 4321-2 ####[facility] LABIA [id number] [place] [id number] [place] CNOVon 10-05-2024 CNOV Office Visit (INTMWS ) DICK ARTIS ([id number]) 1935 F Date Time Provider Department 10/05/24 2:00 PM VIKTORIYA MANZO INTMWS During your visit today, we recorded the following information about you: Pulse Respiration Blood pressure Weight 82/minute 16/minute 135/66 63.6 kg Viktoriya Manzo MD 10/05/2024 2:55 PM Signed We discussed your recent diagnosis of achalasia: - You had an EGD on September [address] Denson, who diagnosed you with achalasia and treated it with botulinum toxin (Botox). - You reported improvement in your swallowing symptoms over the past week, with no choking episodes. This treatment may need to be repeated in the future if symptoms return. We discussed your right shoulder pain: - You have been experiencing worsening right shoulder pain for several months, rated as a 5/10 in severity. The pain limits your ability to lift objects, reach overhead, and perform daily activities like doing your hair. - You will have an X-ray of your right shoulder today to evaluate the cause of the pain. - I am referring you to physical therapy to help improve your shoulder function and reduce pain. - I am also referring you to sports medicine for further evaluation and to discuss additional treatment options, such as a possible injection. We discussed your medications: - All your medications, except for budesonide and Brevana, will now be sent to [facility] for 90-day supplies with three refills. - Budesonide and Brevana will continue to be filled at [facility]. - You are taking potassium in liquid form due to difficulty swallowing pills. Please ensure your potassium levels are checked today, as your kidney function may affect your potassium levels. - Continue taking your cholesterol medication as prescribed. Your cholesterol levels were checked three weeks ago and are slightly elevated but manageable with your current treatment. We discussed your hallucinations: - You reported occasional auditory hallucinations (hearing people talking or music) that occur when it is quiet. These are not significantly bothersome to you, and you prefer not to start additional medications at this time. - The hallucinations may be related to your use of Mirapex (pramipexole) for restless legs syndrome. However, since this medication is effective for your symptoms, we will continue it as prescribed. We discussed your breathing and oxygen use: - You are using oxygen as needed and are breathing well. You quit smoking, which is excellent for your lung health. - For questions about portable oxygen tanks, I recommend discussing this with your lung doctor, as they are better equipped to guide you on this matter. We discussed your heart health: - You have a mild heart murmur (likely tricuspid regurgitation) noted on your recent echocardiogram. This is not currently a cause for concern. - You have an upcoming appointment with your siding coreboard inspector on October 17 to review your heart health. We discussed your exercise routine: - Continue your current exercises, including leg lifts and walking around the house, as these are beneficial for your overall health. Next steps: - Please complete the X-ray of your right shoulder and the bloodwork (BMP and potassium levels) today. - Follow up with physical therapy and sports medicine as scheduled. - Attend you, r cardiology appointment on October 17. - Contact our office if your symptoms worsen or if you have any new concerns. Viktoriya Manzo MD 10/05/2024 5:15 PM Signed Reason for Visit Follow up HPI Emerson is a 89-year-old female, with a history of HTN, HLD, peripheral arterial disease, COPD, CKD stage 3, lumbar stenosis, obesity, cardiovascular disease with TIAs, and carotid artery stenosis, presenting for follow-up. Emerson was recently diagnosed with achalasia following an EGD performed by Dr. Denson on 09/27. She reports a history of dysphagia, describing episodes of choking on food, which have improved slightly since receiving botulinum toxin injections last week. This was her first botulinum toxin treatment for achalasia. She also reports chronic right shoulder pain that has been worsening over the past several months. The pain radiates down her arm into her fingers and is exacerbated by activities such as holding a book, reading, and reaching overhead. She denies morning pain but notes that the pain improves with the application of arthritis cream. She has not undergone physical therapy for this issue. She also reports a popping sensation in her neck when lying flat but denies any significant neck pain. Emerson additionally reports ongoing auditory hallucinations, describing hearing people talking and music when in a quiet environment. These hallucinations are less severe than when she was previously on Ambien, which has since been discontinued. She is currently t (more content not included)... Normal [facility] XR SHLDR >/=3V AP/CARRIE AP/OTH R RTon 10-05-2024 XR SHLDR >/=3V AP/CARRIE AP/OTHR RT * * *Final Report* * * DATE OF EXAM: Oct 05 2024 3:43PM WOX 5253 - XR SHLDR >/=3V AP/CARRIE AP/OTHR RT / PROCEDURE REASON: multiple diagnoses * * * * Physician Interpretation * * * * EXAMINATION / TECHNIQUE: XR SHLDR >/=3V AP/CARRIE AP/OTHR RT HISTORY: chronic right shoulder pain. Chronic right shoulder pain Chronic right shoulder pain COMPARISON: 10/26/2012. RESULT: See impression IMPRESSION: No acute fracture or dislocation is identified. There is narrowing of the acromiohumeral interval which may be seen in the setting of rotator cuff tendon tearing. Mild glenohumeral and acromioclavicular osteoarthritis. 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: JANE Transcribe Date/Time: Oct 11 2024 6:16P Dictated by : NEETA ORTIZ MD This examination was interpreted and the report reviewed and electronically signed by: NEETA ORTIZ MD on Oct 11 2024 6:16PM EST [id number] Normal [facility] EGD Reporton 09-27-2024 EGD Report [facility] Medical Records Department [address] [place] [address] EGD Report MR#: [id number] Acct: [id number] Name: DICK ARTIS Rep #: [id number] : 1935 89 From: Teodoro Friend DO PCP: Dr. Viktoriya Manzo MD [place] [facility] [place] Patient Name: Dick Artis Procedure Date: 09/27/2024 6:30 AM Date of : 1935 Age: 89 Procedure: Upper GI endoscopy Indications: Dysphagia Providers: Teodoro Real DO Referring MD: Viktoriya Manzo Medicines: Monitored Anesthesia Care Patient Profile: This is an 89 year old female. Refer to note in patient chart for documentation of history and physical. Patient has symptoms of dysphagia with both liquids and solids. Complications: No immediate complications. Procedure: Pre-Anesthesia Assessment: - Prior to the procedure, a History and Physical was performed, and patient medications and allergies were reviewed. The patient is competent. The risks and benefits of the procedure and the sedation options and risks were discussed with the patient. All questions were answered and informed consent was obtained. Patient identification and proposed procedure were verified by the physician in the pre-procedure area. Mental Status Examination: alert and oriented. Airway Examination: normal oropharyngeal airway and neck mobility. Respiratory Examination: clear to auscultation. CV Examination: normal. Prophylactic Antibiotics: The patient does not require prophylactic antibiotics. Prior Anticoagulants: The patient has taken no anticoagulant or antiplatelet agents. ASA Grade Assessment: II - A patient with mild systemic disease. After reviewing the risks and benefits, the patient was deemed in satisfactory condition to undergo the procedure. The anesthesia plan was to use monitored anesthesia care (MAC). Immediately prior to administration of medications, the patient was re-assessed for adequacy to receive sedatives. The heart rate, respiratory rate, oxygen saturations, blood pressure, adequacy of pulmonary ventilation, and response to care were monitored throughout the procedure. The physical status of the patient was re-assessed after the procedure. After obtaining informed consent, the endoscope was passed under direct vision. Throughout the procedure, the patient's blood pressure, pulse, and oxygen saturations were monitored continuously. The Endoscope was introduced through the mouth, and advanced to the second part of duodenum. The upper GI endoscopy was accomplished without difficulty. The patient tolerated the procedure well. Scope In: 6:53:20 AM Scope Out: 7:00:31 AM Total Procedure Duration Time 0 hours 7 minutes 11 seconds Findings: No appreciable esophageal motility was noted. In addition, a hypertonic lower esophageal sphincter was found. There was moderate resistance to endoscope advancement into the stomach. The Z-line was regular. The gastroesophageal junction and cardia were normal on retroflexed view. Area was successfully injected with 100 units botulinum toxin. No gross lesions were noted in the entire examined stomach. No gross lesions were noted in the first portion of the duodenum. Impression: - Achalasia. Injected with botulinum toxin. - No gross lesions in the entire stomach. - No gross lesions in the first portion of the duodenum. - No specimens collected. Recommendation: - Discharge patient to home. - Resume previous diet. - Continue present medications. Procedure Code(s): --- Professional --- 75831, Esophagogastroduodenos copy, flexible, transoral; with directed submucosal injection(s), any substance CPT copyright 2021 [employer]. All rights reserved. The codes documented in this report are preliminary and upon mixing picker tender review may be revised to meet current compliance requirements. Teodoro Real DO 09/27/2024 7:09:56 AM This report has been signed electronically. Number of Addenda: 0 Note Initiated On: 09/27/2024 6:30 AM 09/27/24709 Date Teodoro Real DO Cosigner Signature: Date (if indicated) CC: Dr. Viktoriya Manzo MD; Teodoro Real DO Date Dictated: 09/27/24629 Date Transcribed: 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: MARY CARMEN Signed [facility] MR/POSTOP.[facility] 09-27-2024 MR/POSTOP.[facility] Medical Records Department [address] [place] [address] Anesthesia Postop Eval I 09/27/24709 MR#: [id number] Acct: [id number] Name: DICK ARTIS Rep #: [id number] : 1935 89 From: Juan Carlos Grant PCP: Dr. Viktoriya Manzo MD Status:REG SDC Y Race: C Location: [place] [address] Anesthesia: Postop Eval I Current Vital Signs Temperature: 97.2 F Pulse Rate: 67 Blood Pressure: 77/47 Respiratory Rate: 16 Pulse Ox: 98 Oxygen Delivery Method: Nasal Cannula Oxygen Flow Rate (L/min): 2 Assessment Airway patent: Yes Spontaneous unlabored respirations: Yes Mental status: Asleep nausea: No Vomiting: No Anesthesia Complication: Yes Anesthesia Complication Comment:: hypotension Fluid Hydration Crystalloid volume administer (ml): 30 Total IV fluid infused: 30 Progress Note Anesthesia document: Postop Eval 1 completed: Yes 09/27/24 07 Date Juan Carlos Bandaradha Signature: Date CC: Signed Normal [facility]/[id number] 09-27-2024 /[address] Medical Records Department [address] [place] [address] Anesthesia Postop Eval II 09/27/24 1123 MR#: [id number] Acct: [id number] Name: DICK ARTIS Rep #: [id number] : 1935 89 From: Zan Peraza MD PCP: Dr. Viktoriya Manzo MD Status:[facility] Y Race: C Location: [place] Anesthesia Postop Eval I Sum Postop Eval Completion status Anesthesia document: Postop Eval 1 completed: Yes Anesthesia Postop Eval I Summary Anesthesia Postop Eval I Summary: Anesthesia Postop Eval I: Assessment Summary Airway patent Yes 09/27/24 07:12 [email or web address] Spontaneous unlabored Yes 09/27/24 07:12 [email or web address] respirations Mental status Asleep 09/27/24 07:12 [email or web address] nausea No 09/27/24 07:12 [email or web address] Vomiting No 09/27/24 07:12 [email or web address] Anesthesia Postop Eval I: Fluid Summary Crystalloid volume administer 30 09/27/24 07:12 [email or web address] (ml) Colloids volume administered ( ml) Blood Product volume administered (ml) Total IV fluid infused 30 09/27/24 07:12 [email or web address] Anesthesia Postop Eval I: Summary Notes Anesthesia Complication Yes 09/27/24 07:12 [email or web address] Anesthesia Complication hypotension 09/27/24 07:12 [email or web address] Comment: Post-operative progress note Anesthesia: Postop Eval II Evaluation Mental status: Awake Pain Level: 0 nausea: No Vomiting: No Complications Anesthesia Complication: No 09/27/24 1124 Date Zan Lombardo Signature: Date CC: Signed Normal [facility] Records Department [address] [place] [address] PAT - Anesthesia 09/24/24 1526 MR#: [id number] Acct: [id number] Name: DICK ARTIS Rep #: [id number] : 1935 89 From: Vin Farias MD PCP: Status[place]PRE [facility] [place] C Location: [place] Pre-Assessment Diagnosis/Proposed Procedure Planned Operative Procedure(s): EGD Anesthesia History Anesthesia History - artist relationship manager: Anesthesia History - artist relationship manager Hx Hospitalization Yes: INFECTION 09/24/24 13:52 Any Problems With Anesthesia No 09/24/24 13:52 Cholinesterase deficiency No 09/24/24 13:52 You/Your Family Experience No 09/24/24 13:52 fever (hyperthermia) with Relationship Recent Exposure to Contagious No 04/19/24 07:47 Disease Does patient have nerve No 09/24/24 13:52 stimulator Patient instructed to have device shut off --Does patient have Pacemaker or ICD? When Was Last Pacemaker Check QUESTION #4 FULL TEXT: You/Your Family Experience fever (hyperthermia) with Anesthesia Last Oral Intake Last Oral intake: Last Oral Intake NPO since Meds taken in AM with sips of water? Meds patient instructed to take am of surgery PONV PONV - artist relationship manager: PONV - artist relationship manager Female Yes 09/24/24 13:52 HX of Motion Sickness No 09/24/24 13:52 HX of N/V After Surgery No 09/24/24 13:52 Non-Smoker Yes 09/24/24 13:52 Duration of Surgery greater No 09/24/24 13:52 than 60 minutes Number of Risk Factors 2 09/24/24 13:52 PONV Score Moderate Risk 09/24/24 13:52 Height Weight Height Weight: Anesthesia: Height Weight Height 5 ft 2 in 06/06/24 23:47 Respiratory Assessment Respiratory Assessment - artist relationship manager: Respiratory Tract Infection Hx - artist relationship manager Hx Respiratory Tract Infection No 09/24/24 13:52 STOP Sleep Apnea STOP Sleep Apnea - artist relationship manager: STOP Sleep Apnea - artist relationship manager Hx Hypertension Yes 09/24/24 13:52 Hx Sleep Apnea No 09/24/24 13:52 CPAP No 04/19/24 09:02 BIPAP No 11/03/23 18:31 Do you snore loudly (louder No 09/24/24 13:52 than talking or can be heard Do you often feel tired/ No 09/24/24 13:52 fatigued/ sleepy during daytime? Has anyone observed you stop No 09/24/24 13:52 breathing during sleep? STOP Results Negative 09/24/24 13:52 QUESTION #5 FULL TEXT : Do you snore loudly (louder than talking or can be heard through closed doors)? 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 Specify any problems Hx of Preganancy in last 3 No 09/24/24 13:52 Months Nurse Filling Out Transfusion [facility] 09/24/24 13:52 Questions: Date: 09/24/24 09/24/24 13:52 Time: 14:14 09/24/24 13:52 Patient unable to answer at this time (ie. 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 Hx Now No 09/24/24 13:52 Gestational Age (in weeks): EDC: Hx Hx Para Hx Section SAB No 09/24/24 13:52 [facility] Medical History Cancer Thyroid disease Ambulates with cane History of renal disease TIA (transient ischemic attack) Acute diverticulitis Wears glasses Wears dentures Arthritis Low iron Anemia High cholesterol Migraine headache Restless legs Difficulty chewing History of diverticulitis Heartburn Gastric reflux Former smoker On home oxygen therapy Shortness of breath on exertion Chronic cough History of edema History of echocardiogram History of stress test Cardiology follow-up encounter Hypertension Chronic hypoxic respiratory failure History of diabetes mellitus History of hypertension Diverticulitis History of chronic heart failure History of COPD COPD (chronic obstructive pulmonary disease) Anemia Chronic heart failure with preserved ejection fraction (HFpEF) Hyperlipidemia (more content not included)... Normal [facility] Lipid 1996 panelon 5 Cholesterol [Mass/Vol] 196 mg/dL NINF - 200 mg/dL [facility] Comment on above: <200 mg/dL, Desirabl e 200-239 mg/dL, Borderline high >239 mg/dL, High Cholesterol in HDL [Mass/Vol] 37 mg/dL Low 39 - PINF mg/dL [facility] Comment on above: 40-59 mg/dL, Accepta ble >59 mg/dL, High: Negative risk factor for coronary heart disease <40 mg/dL, Low: Positive risk factor for coronary heart disease Cholesterol in LDL [Mass/Vol] 110 mg/dL High NINF - 100 mg/dL [facility] Comment on above: <100 mg/dL, Optimal 100-129 mg/dL, Near optimal/above optimal 130-159 mg/dL, Borderline high 160-189 mg/dL, High >189 mg/dL, Very high Secondary prevention optimal LDL Cholesterol levels are recommended to be < 70 mg/dL Cholesterol in LDL/Cholesterol in HDL [Mass ratio] 2.97 {ratio} High NINF - 2.54 [facility] Comment on above: Reference: 1. National Cholesterol Education Program ATP III Guideline At-A-Glance Quick Desk Reference: National Heart, Lung, and Blood [place]. National Institutes of Health. 2001: NIH Publication No. 01-3305. 2. An International Atherosclerosis Society position paper: global recommendations for the management of dyslipidemia: executive summary, Atherosclerosis. 2014: 232(2):410-413. Cholesterol in VLDL [Mass/Vol] 49 mg/dL High NINF - 30 mg/dL [facility] Cholesterol non HDL [Mass/Vol] 159 mg/dL High NINF - 130 mg/dL [facility] Comment on above: <130 mg/dL, Optimal 130-159 mg/dL, Near optimal/above optimal 160-189 mg/dL, Borderline high 190-219 mg/dL, High >219 mg/dL, Very high Secondary prevention optimal non HDL Cholesterol levels are recommended to be <100 mg/dL Cholesterol.total/Cholester ol in HDL [Mass ratio] 5.3 {ratio} High NINF - 5.10 [facility] Fasting Time 14 hrs [facility] Interpretation and review of laboratory results Abnormal [facility] Triglyceride [Mass/Vol] 243 mg/dL High NINF - 150 mg/dL [facility] Comment on above: <150 mg/dL, Normal 150-199 mg/dL, Borderline high 200-499 mg/dL, High >499 mg/dL, Very high [facility] Cholesterol [Mass/Vol] 196 mg/dL Normal <200 Cl [facility] Comment on above: Order Comment: Speci men Type: BLOOD SPECIMENOrdering Facility: [facility] Address: [address] [place] [address] Result Comment: <200 mg/dL, Desirable 200-239 mg/dL, Borderline high >239 mg/dL, High Performed By: #### 2 4331-1 ####[facility] LABORATORYCLIA [id number] [address] STATES OF [facility] [id number] [address] Cholesterol in HDL [Mass/Vol] 37 mg/dL Low >39 [facility] Comment on above: Order Comment: Shawene welch Type: BLOOD SPECIMENOrdering Facility: [facility] Address: [address] [place] [address] Result Comment: 40-5 9 mg/dL, Acceptable >59 mg/dL, High: Negative risk factor for coronary heart disease <40 mg/dL, Low: Positive risk factor for coronary heart disease Performed By: #### 2 4331-1 ####[facility] LABORATORYCLIA [id number] [address] [id number] [place] [address] Cholesterol in LDL [Mass/Vol] 110 mg/dL High <100 [facility] Comment on above: Order Comment: Shawnee welch Type: BLOOD SPECIMENOrdering Facility: [facility] Address: [address] [place] [address] Result Comment: <100 mg/dL, Optimal 100-129 mg/dL, Near optimal/above optimal 130-159 mg/dL, Borderline high 160-189 mg/dL, High >189 mg/dL, Very high Secondary prevention optimal LDL Cholesterol levels are recommended to be < 70 mg/dL Performed By: #### 2 4331-1 ####[facility] LABORATORYCLIA [id number] [address] [id number] [place] [address] Cholesterol in LDL/Cholesterol in HDL [Mass ratio] 2.97 {ratio} High <2.54 [facility] Comment on above: Order Comment: Sahwnee welch Type: BLOOD SPECIMENOrdering Facility: [facility] Address: [address] [place] [address] Result Comment: Refe rence: 1. National Cholesterol Education Program ATP III Guideline At-A-Glance Quick Desk Reference: National Heart, Lung, and Blood [place]. National Institutes of Health. 2001: NIH Publication No. 01-3305. 2. An International Atherosclerosis Society position paper: global recommendations for the management of dyslipidemia: executive summary, Atherosclerosis. 2014: 232(2):410-413. Performed By: #### 2 4331-1 ####[facility] LABORATORYCLIA [id number] [address] [id number] [place] [address] Cholesterol in VLDL [Mass/Vol] 49 mg/dL High <30 [facility] Comment on above: Order Comment: Speci men Type: BLOOD SPECIMENOrdering Facility: [facility] Address: [address] [place] [address] Performed By: #### 2 4331-1 ####[facility] LABORATORYCLIA [id number] [address] [id number] [place] [address] Cholesterol non HDL [Mass/Vol] 159 mg/dL High <130 [facility] Comment on above: Order Comment: Speci men Type: BLOOD SPECIMENOrdering Facility: [facility] Address: [address] [place] [address] Result Comment: <130 mg/dL, Optimal 130-159 mg/dL, Near optimal/above optimal 160-189 mg/dL, Borderline high 190-219 mg/dL, High >219 mg/dL, Very high Secondary prevention optimal non HDL Cholesterol levels are recommended to be <100 mg/dL Performed By: #### 2 4331-1 ####[facility] LABORATORYCLIA [id number] [address] [id number] [address] Cholesterol.total/Cholester ol in HDL [Mass ratio] 5.30 {ratio} High <5.10 [facility] Comment on above: Order Comment: Speci men Type: BLOOD SPECIMENOrdering Facility: [facility] Address: [address] [place] [address] Performed By: #### 2 4331-1 ####[facility] LABORATORYCLIA [id number] [address] [id number] [address] FASTING TIME 14 hrs Normal [facility] Comment on above: Order Comment: Speci men Type: BLOOD SPECIMENOrdering Facility: [facility] Address: [address] [place] [address] Performed By: #### 2 4331-1 ####[facility] LABORATORYCLIA [id number] [address] [id number] [place] [address] Triglyceride [Mass/Vol] 243 mg/dL High <150 [facility] Comment on above: Order Comment: Speci men Type: BLOOD SPECIMENOrdering Facility: [facility] Address: [address] [place] [address] Result Comment: <150 mg/dL, Normal 150-199 mg/dL, Borderline high 200-499 mg/dL, High >499 mg/dL, Very high Performed By: #### 2 4331-1 ####[facility] LABORATORYCLIA [id number] [address] [id number] [address] [place] Gastroenterology Visit Repor ton 08-03-2024 Gastroenterology Visit Report [facility] [address] [place] [address] OFFICE VISIT Date of Service: 08/03/24 MR#: [id number] Acct: [id number] Name: STEFFDICKLAUREN LOPEZ Rep #: [id number] : 1935 Provider: INDIRA Cox Age/Sex: 88/F [place] [facility] Status: Signed Intake Vital Signs 04/19/24 07:47 06/06/24 23:47 Height 5 ft 2 in 5 ft 2 in Intake Visit Reasons: 3 M FU Chief Complaint: trouble swallowing Allergies lisinopril Allergy (Verified 06/06/24 18:17) edema aspirin Adverse Reaction (Verified 06/06/24 18:17) Upset Stomach Have you fallen in the past year?: No Nurse's Note: OV 08.02.24 Pt here for f/u and reports trouble swallowing. Continues pantoprazole daily. Scheduled for EGD with Botox to be done 09.27.24. Denies N/V/D/C, bloody stools and abdominal pain. [facility] Medical History Wears glasses Wears dentures Rash Diabetes Arthritis Low iron Anemia High cholesterol Migraine headache Restless legs Difficulty chewing History of diverticulitis Heartburn Gastric reflux Former smoker On home oxygen therapy Shortness of breath on exertion Chronic cough History of edema History of echocardiogram History of stress test Cardiology follow-up encounter Hypertension Chronic hypoxic respiratory failure History of diabetes mellitus History of hypertension Diverticulitis History of chronic heart failure History of COPD COPD (chronic obstructive pulmonary disease) Anemia Chronic heart failure with preserved ejection fraction (HFpEF) Hyperlipidemia Right lumbar radiculopathy CKD (chronic kidney disease), stage III Hypertension Chronic kidney disease PAD (peripheral artery disease) Renal cyst History of TIA (transient ischemic attack) Bilateral carotid artery stenosis Claudication RLS (restless legs syndrome) Diverticulosis TIA (transient ischemic attack) Vertigo Leg edema Dyslipidemia Surgical History History of thyroid surgery History of carotid angioplasty History of kidney stones History of basal cell carcinoma excision History of total hysterectomy Family History Mother Heart disease Social History household members: none housing: house Smoking Status: Former smoker how long ago did patient quit smokin years ago alcohol intake: current alcohol intake frequency: holidays/special occasions only details: rare substance use type: does not use caffeine: Yes Type: coffee Number of servings: 1 HPI HPI Chief Complaint: trouble swallowing Details: DICK ARTIS, is a 88 F who presents to the office today for f/u. PT was hospitalized in August of 2023 for NSTEMI and COPD exacerbation. She was found to have down trending hemoglobin and underwent EGD. EGD .08.10; - LA Grade D erosive esophagitis with bleeding. Treated with a heater probe. - Non-bleeding gastric ulcers with no stigmata of bleeding. Biopsied. - Acute duodenitis. Biopsied OV 9..24 ; Patient has been doing well from GI standpoint up until recently when she had an episode of choking. She was eating a chicken wing when she stated to choke on it. She presented to the ED for this and was ultimately sent home after normal chest x-ray. After being sent home she had numerous episodes of vomiting which subsided after a few days. Since then she has had no further problems besides some break through heartburn. She continues to take Pantoprazole daily. EGD 04.19.24; - Abnormal esophageal motility, consistent with aperistalsis. Dilated. - Small hiatal hernia. - Gastric mucosal variant. Biopsied. - A few duodenal polyps. Resected and retrieved. OV 05.01.24; Pt continues to have episodes of choking and vomiting. Since her EGD she has had two episodes of choking. She has not been able to identify foods that trigger it but it is sometimes meat. She has had two episodes of heartburn since her EGD. She has been taking pantoprazole 40 mg just once a day. *start amitriptyline 10 mg daily *amitriptyline discontinued [facility] admission 06.06.24-06.08.24 w/ severe hypomagnesia, hypocalcemia, and diverticulitis after presentation to the ED with confusion. OV 1.17.25; Pt continues to have issues with swallowing. She is having issues with all foods and has not identified any specific triggers. She continues taking pantoprazole 40 mg daily. Denies n/v, constipation, diarrhea or abd pain. ROS Const Constitutional: No anorexia, fatigue, fever(s), weight change or sleep problems Eyes Eyes: No change in vision ENT ENT: Positive for difficulty swallowing; No abnormal hearing, mouth le (more content not included)... Normal [facility] Basic metabolic 2000 panelon 07-06-2024 Anion gap [Moles/Vol] 13 mmol/L Normal 8-15 [facility] Comment on above: Order Comment: Speci men Type: BLOOD SPECIMENOrdering Facility: [facility] Address: [address] [place] [address] Performed By: #### 1 9123-9, 83984-1 ####[facility] LABCLIA [id number] [place] [address] [place] Calcium [Mass/Vol] 10.0 mg/dL Normal 8.5-10.2 [facility] Comment on above: Order Comment: Speci men Type: BLOOD SPECIMENOrdering Facility: [facility] Address: [address] [place] [address] Performed By: #### 1 9123-9, 14470-5 ####[facility] LABCLIA [id number] [place] [address] [place] Chloride [Moles/Vol] 99 mmol/L Normal 98-107 [facility] Comment on above: Order Comment: Speci men Type: BLOOD SPECIMENOrdering Facility: [facility] Address: [address] [place] [address] Performed By: #### 1 9123-9, 03200-2 ####[facility] LABCLIA [id number] [place] [address] [place] CO2 [Moles/Vol] 30 mmol/L Normal 22-30 [facility] Comment on above: Order Comment: Speci men Type: BLOOD SPECIMENOrdering Facility: [facility] Address: [address] [place] [address] Performed By: #### 1 9123-9, 21423-8 ####[facility] LABCLIA [id number] [place] [id number] [place] Creatinine [Mass/Vol] 1.56 mg/dL High 0.58-0.96 [facility] Comment on above: Order Comment: Shawnee welch Type: BLOOD SPECIMENOrdering Facility: [facility] Address: [address] [place] [address] Performed By: #### 1 9123-9, 26978-9 ####[facility] LABCLIA [id number] [place] [address] [place] Creatinine and Glomerular filtration rate.predicted panel (S/P/Bld) 32 mL/min/1.73m??? Low >=60 [facility] Comment on above: Order Comment: [place] welch Type: BLOOD SPECIMENOrdering Facility: [facility] Address: [address] [place] [address] Result Comment: Rachelle mated Glomerular Filtration Rate (eGFR) is calculated using the 2020 CKD-EPI creatinine equation. This equation utilizes serum creatinine, sex, and age as parameters. The creatinine assay has traceable calibration to isotope dilution-mass spectrometry. Refer to KDIGO guidelines for clinical interpretation. In patients with unstable renal function, e.g. those with acute kidney injury, the eGFR may not accurately reflect actual GFR. Performed By: #### 1 9123-9, 39795-9 ####[facility] LABCLIA [id number] [place] [address] [place] Glucose [Mass/Vol] 100 mg/dL High 74-99 [facility] Comment on above: Order Comment: [place] welch Type: BLOOD SPECIMENOrdering Facility: [facility] Address: [address] [place] [address] Result Comment: The [place] Diabetes Association (ADA) provides guidance for cutoff values for fasting glucose and random glucose. The ADA defines fasting as no caloric intake for at least 8 hours. Fasting plasma glucose results between 100 to 125 mg/dL indicate increased risk for diabetes (prediabetes). Fasting plasma glucose results greater than or equal to 126 mg/dL meet the criteria for diagnosis of diabetes. In the absence of unequivocal hyperglycemia, results should be confirmed by repeat testing. In a patient with classic symptoms of hyperglycemia or hyperglycemic crisis, random plasma glucose results greater than or equal to 200 mg/dL meet the criteria for diagnosis of diabetes. Reference: Standards of Medical Care in Diabetes 2016, [place] [employer] Association. Diabetes Care. 2016.39(Suppl 1). Performed By: #### 1 9123-9, 67816-5 ####[facility] LABIA [id number] [place] [address] [place] Potassium [Moles/Vol] 4.8 mmol/L Normal 3.7-5.1 [facility] Comment on above: Order Comment: [place] welch Type: BLOOD SPECIMENOrdering Facility: [facility] Address: [address] [place] [address] Performed By: #### 1 9123-9, 78192-0 ####[facility] [id number] [place] [address] [place] Sodium [Moles/Vol] 142 mmol/L Normal 136-144 [facility] Comment on above: Order Comment: Shaw[place] welch Type: BLOOD SPECIMENOrdering Facility: [facility] Address: [address] [place] [address] Performed By: #### 1 9123-9, 63772-4 ####[facility] [id number] [place] [address] [place] Urea nitrogen [Mass/Vol] 51 mg/dL High 7-21 [facility] Comment on above: Order Comment: Shawnee welch Type: BLOOD SPECIMENOrdering Facility: [facility] Address: [address] [place] [address] Performed By: #### 1 9123-9, ####[facility] [id number] [place] [address] [place] CNOVon 07-06-2024 CNOV Office Visit (INTMWS ) DICK ARTIS ([id number]) 1935 F Date Time Provider Department 07/06/24 1:00 PM VIKTORIYA MANZO During your visit today, we recorded the following information about you: Pulse Blood pressure Weight Height 80/minute 142/52 64.7 kg 1.575 m Viktoriya Manzo MD 07/06/2024 5:58 PM Signed Reason for Visit Patient presents with: Hospital F/U Dick Artis is a 88 year old female who presents here today for Above Complaints.. Health Maintenance Dilated Retinal Exam Diabetic Foot Exam Shingrix Vaccine(1 of 2) DTaP,Tdap,Td Vaccine(2 - Td or Tdap) Covid-19 Vaccine(3 - season) EHSAN Buchanan is a very pleasant 88-year-old woman with a past medical history of restless leg syndrome hypertension, hyperlipidemia, peripheral arterial disease, COPD, CKD stage III back pain from lumbar stenosis, obesity, TIA, carotid artery stenosis. Here with son Jac. She was admitted in the hospital on June 06 for symptoms of hallucinations, abnormal mental status changes despite being on medications for UTI. In the hospital she was found to have severe hypomagnesemia and severe hypokalemia. She was treated with IV magnesium sulfate and it brought up her serum magnesium the etiology was thought to be from diuretics. Her calcium was low and so she was given calcium gluconate and the hypercalcemia resolved. Ultrasound of the abdomen pelvis was done and her renal mass was increased to 5 cm, she did talk to her front end mechanic about that and has a follow-up with him. She also has a left adrenal nodule which is likely thought to be an [place]. She was also found to have superior endplate mild compression fracture of the L1. In October 2023 she was diagnosed with COPD with hypoxic respiratory failurePatient is on oxygen, for 6 months.. since getting out of the hospital . Failed the 6 mins walk, needs 2 litres of o2 when sitting, after doing a nocturnal pulse ox they figured that she needs to use 4 liters of oxygen. Hallucinations: notes that ambien and antibiotics mix made her have hallucinations. She heard people talking like she was in a motel When she came home from the hospital. She is still hearing noises but it is much decreased. Probably couple times a week. Not as severe as it was in the past. Insomnia: she is not a good sleeper. She does to bed at 6:30. She wakes up around 11 or 12 in the mid night. She goes back right to bed. She plays bingo a couple of hours at night time . She wakes up at 3/4 am and takes her medication. She does not drink much coffee or tea now. Before the hospital she was drinking around 2 cups in the morning. She drinks sparrow coke around a can and a half a day. Does not eat much chocolate. 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 She has a tv but does not watch it all the time. She has always been this way. She has RLS. She has 30 pack years of smoking at the most She has no concerns with memory. No problem-specific Assessment AND Plan notes found for this encounter. PAST MEDICAL HISTORY Diagnosis Date Basal cell carcinoma Carotid stenosis CEA left Chronic hypoxemic respiratory failure (HCC) CKD (chronic kidney disease) stage 3, GFR 30-59 ml/min ([facility]) 07/30/2018 COPD (chronic obstructive pulmonary disease) ([facility]) Diastolic heart failure ([facility]) Diverticulosis of colon (without mention of hemorrhage) Diverticulosis Hypertension Rolly Smith MD NSTEMI (non-ST elevated myocardial infarction) ([facility]) Osteoporosis, unspecified Personal history of colonic polyps Colon polyps Restless legs syndrome (RLS) Spinal stenosis TIA (transient ischemic attack) 2008 Plavix Type 2 diabetes mellitus with hyperglycemia, without long-term current use of insulin ([facility]) 10/19/2023 PAST SURGICAL HISTORY Procedure Laterality Date CAROTID ENDARTERECTOMY Left 01/23/2021 COLONOSCOPY FLX DX W/COLLJ SPEC WHEN PFRMD 03/25/2004 Colonoscopy CYSTOSCOPY 06/02/2012 left ureteral calculi ESOPHAGOGASTRODUODENOS COPY TRANSORAL DIAGNOSTIC 03/25/2004 EGD PAST SURGICAL HISTORY OF 04/15/2004 right inferior parathyroidectomy TOTAL ABDOMINAL HYSTERECT W/WO RMVL TUBE OVARY 05/18/1971 Hysterectomy, WILFREDO, LSO carcinoma insitu FAMILY HISTORY Problem Relation Age of Onset Diabetes Mother Heart Mother None Father hx unknown Heart Brother Diabetes Brother Cancer Brother Lung, 1/2 brother. Asthma No Family History COPD No Family History Emphysema No Family History Social History Tobacco Use Smoking status: Former Current packs/day: 0.00 Average packs/day: 1 pack/day for 53.1 years (53.1 ttl pk-yrs) Types: Cigarettes Start date: 08/11/1963 Quit date: 10/04/2016 Years since quittin.7 Smokeless tobacco: Never Tobacco comments: 10-20 year period in 30-40s when quit. Vaping Use Vaping status: Never Used [place] (more content not included)... Normal [facility] Magnesium SerPl-mCncon 07-06 Magnesium [Mass/Vol] 2.1 mg/dL Normal 1.7-2.3 [facility] Comment on above: Order Comment: Speci men Type: BLOOD SPECIMENOrdering Facility: [facility] Address: [address] [place] [address] Performed By: #### 1 9123-9, 76550-8 ####[facility] LABCLIA [id number] [facility] [address] CNPSivan 06-18-2024 CNPN Telephone (INTMWS) DICK ARTIS ([id number]) 1935 F Date Time Provider Department 06/18/24 MADY DUNN INTMWS During your visit today, we recorded the following information about you: Natali Mcintosh, DEVANG 06/18/2024 2:23 PM Signed ----- Message from Maddison Narayanan APRN.PRODUCE ASSISTANT sent at 06/15/2024 4:19 PM EST ----- Recent hospital visit, does she need a sooner appt with Mady Dunn MD / team? Has a 07/[address] Manzo. Natali Mcintosh, DEVANG 06/18/2024 2:31 PM Signed Called and spoke with pt. Pt seems to be doing okay at this time. Pt refuses offered hospital f/u appt earlier with either Dr. Dunn or Maddison Renteria. Pt states she has an appt with Dr. Manzo on 07/06 which is a 3 month f/u from her 04/06 appt with Rosaura Jose Armando. Pt asking if she can't just do the hospital f/u then. Pt states she only likes to see Rosaura and since she is out, pt had requested to see someone other than Dr. Dunn or Maddison Renteria. Pt is thinking about having Dr. Manzo be her physician now. Explained to pt that no providers are taking new patients and that is something that would have to be discussed with Dr. Manzo plus her appt on 07/06 is only for 20 mins. After discussion with management, will forward this information to Dr. Manzo to see how she would like to proceed. Viktoriya Manzo MD 06/18/2024 4:53 PM Signed Sorry I am not taking new patients. Regards, Christina Bergeron MD, RN 06/18/2024 6:26 PM Addendum Spoke with patient. Given message from provider's office. Patient verbalizes understanding. She declines appointment with another provider. She will see Dr. Manzo for Hospital F/U and is aware that Dr. Manzo is not accepting new patients. Appointment R/S to 40 minutes 07/06 @ 1 PM. Christina Campbell RN Allergies As of Date: 06/18/2024 Noted Allergy Reaction AMLODIPINE 02/16/2016 7 - Swelling Comments: Lower leg edema. ASPIRIN 05/19/2005 16 - Unknown LISINOPRIL 09/06/2011 3 - Cough REQUIP (ROPINIROLE) 09/26/2007 14 - Other: See Comments Comments: Very anxious Date Reviewed: 04/25/2024 Reviewed by: Eboni Cooley, DEVANG - Fully Assessed Reason for Visit: Hospital F/U [57] Request for possible change of provider [Other] Prescriptions as of 06/18/2024 - pramipexole (MIRAPEX) 1.5 mg tablet Take 1 tablet by mouth daily at bedtime. - spironolactone (ALDACTONE) 25 mg tablet Take 1 tablet by mouth once daily. - zolpidem (AMBIEN) 10 mg Take 1 tablet by mouth at bedtime as needed for up to 180 days. - DULoxetine (CYMBALTA) 60 mg capsule Take 1 capsule by mouth once daily. - furosemide (LASIX) 40 mg tablet Take 1 tablet by mouth two times a day. - potassium chloride 20 mEq/15 mL solution Take 15 mL by mouth once daily. - pantoprazole DR (PROTONIX) 40 mg tablet Take 1 tablet by mouth once daily. - carvedilol (COREG) 25 mg tablet Take 1 tablet by mouth two times a day with meals. - iron polysaccharide complex (FERREX-150) 150 mg iron capsule Take 1 capsule by mouth once daily. - Compression Socks, Medium misc 2 Each once daily. Or size to fit. 10-20 mmHg. On in a.m., off in evening. - arformoterol (BROVANA) 15 mcg/2 mL nebulizer solution Inhale 2 mL as instructed every 12 hours. - OXYGEN, HOME THERAPY, 3 L/min by Nasal Cannula route as directed. - acetaminophen (TYLENOL) 500 mg tablet Take 1,000 mg by mouth every 6 hours as needed for pain (EVERY 6 HOURS NEEDED FOR PAIN). - albuterol HFA (VENTOLIN HFA) 90 mcg/actuation inhaler Inhale 2 Puffs as instructed every 4 hours as needed for wheezing/shortness of breath. 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] 05/24/2008 HTN (hypertension), benign [I10] 08/12/2009 Hypokalemia [E87.6] 08/12/2009 COPD (chronic obstructive pulmonary disease) [J*08/24/2010 S/P unilateral salpingo-oophorectomy [Z90.721] 02/18/2011 S/P WILFREDO (total abdominal hysterectomy) [Z90.710]02/18/2011 Hyperlipidemia [E78.5] 04/21/2011 Hypertension [I10] 04/21/2011 Vitamin D deficiency [E55.9] 03/06/2012 Nonspecific abnormal finding in stool contents *03/31/2012 02/08/2024 Acute gastritis without mention of hemorrhage [*03/31/2012 02/08/2024 Calculi, ureter [N20.1] 06/02/2012 HTN (hypertension) [I10] 12/11/2014 04/07/2015 Essential hypertension [I10] 04/07/2015 Mixed simple and (more content not included)... Normal [facility] 06-15-2024 CNPN Telephone (AKURFL) DICK ARTIS ([id number]) 1935 F Date Time Provider Department 06/15/24 SPENCER BOONE During your visit today, we recorded the following information about you: Spencer Boone MD 06/15/2024 7:57 AM Signed I received her CT and MRI from [place] Although 1 cyst is larger, the MRI is reassuring that these do not look like solid masses but looks like cyst. We will continue to follow this. Schedule a renal ultrasound and appointment in 6 months Allergies As of Date: 06/15/2024 Noted Allergy Reaction AMLODIPINE 02/16/2016 7 - Swelling Comments: Lower leg edema. 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 - spironolactone (ALDACTONE) 25 mg tablet Take 1 tablet by mouth once daily. - zolpidem (AMBIEN) 10 mg Take 1 tablet by mouth at bedtime as needed for up to 180 days. - DULoxetine (CYMBALTA) 60 mg capsule Take 1 capsule by mouth once daily. - furosemide (LASIX) 40 mg tablet Take 1 tablet by mouth two times a day. - potassium chloride 20 mEq/15 mL solution Take 15 mL by mouth once daily. - pantoprazole DR (PROTONIX) 40 mg tablet Take 1 tablet by mouth once daily. - carvedilol (COREG) 25 mg tablet Take 1 tablet by mouth two times a day with meals. - iron polysaccharide complex (FERREX-150) 150 mg iron capsule Take 1 capsule by mouth once daily. - Compression Socks, Medium misc 2 Each once daily. Or size to fit. 10-20 mmHg. On in a.m., off in evening. - arformoterol (BROVANA) 15 mcg/2 mL nebulizer solution Inhale 2 mL as instructed every 12 hours. - OXYGEN, HOME THERAPY, 3 L/min by Nasal Cannula route as directed. - acetaminophen (TYLENOL) 500 mg tablet Take 1,000 mg by mouth every 6 hours as needed for pain (EVERY 6 HOURS NEEDED FOR PAIN). - albuterol HFA (VENTOLIN HFA) 90 mcg/actuation inhaler Inhale 2 Puffs as instructed every 4 hours as needed for wheezing/shortness of breath. 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] 05/24/2008 HTN (hypertension), benign [I10] 08/12/2009 Hypokalemia [E87.6] 08/12/2009 COPD (chronic obstructive pulmonary disease) [J*08/24/2010 S/P unilateral salpingo-oophorectomy [Z90.721] 02/18/2011 S/P WILFREDO (total abdominal hysterectomy) [Z90.710]02/18/2011 Hyperlipidemia [E78.5] 04/21/2011 Hypertension [I10] 04/21/2011 Vitamin D deficiency [E55.9] 03/06/2012 Nonspecific abnormal finding in stool contents *03/31/2012 02/08/2024 Acute gastritis without mention of hemorrhage [*03/31/2012 02/08/2024 Calculi, ureter [N20.1] 06/02/2012 HTN (hypertension) [I10] 12/11/2014 04/07/2015 Essential hypertension [I10] 04/07/2015 Mixed simple and mucopurulent chronic bronchiti*01/10/2016 Mixed hyperlipidemia [E78.2] 01/10/2016 Herpes zoster without complication [B02.9] 02/28/2016 02/08/2024 Bifascicular block [I45.2] 10/11/2016 Obesity, Class I, BMI 30-34.9 [E66.811] 07/30/2018 Stage 3b chronic kidney disease (HCC) [N18.32] 07/30/2018 TIA (transient ischemic attack) [G45.9] 05/26/2020 Carotid artery stenosis [I65.29] 01/23/2021 PAD (peripheral artery disease) (HCC) [I73.9] 11/11/2021 Chronic bilateral thoracic back pain [M54.6, G8*04/04/2023 Lumbar pain [M54.50] 04/04/2023 Osteopenia of lumbar spine [M85.88] 05/23/2023 Type 2 diabetes mellitus with hyperglycemia, wi*10/19/2023 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, [address] BUN/CRE Normal 10-20 [facility] Comment on above: Result Comment: Canc elled via OM: Order cancelled - Patient discharged Performed By: #### L 500.2500, L100.0100 ####[facility] [address] [place], [address] CA,Total Normal 8.5-10.1 [facility] Comment on above: Result Comment: Canc elled via OM: Order cancelled - Patient discharged Performed By: #### L 500.2500, L100.0100 ####[facility] [address] [place], [address] CL Normal 98-107 [facility] Comment on above: Result Comment: Canc elled via OM: Order cancelled - Patient discharged Performed By: #### L 500.2500, L100.0100 ####[facility] [address] [place], [address] CO2 Normal 21.0-32.0 [facility] Comment on above: Result Comment: Canc elled via OM: Order cancelled - Patient discharged Performed By: #### L 500.2500, L100.0100 ####[facility] [address] [place], [address] CREAT,SERUM Normal 0.55-1.02 [facility] Comment on above: Result Comment: Canc elled via OM: Order cancelled - Patient discharged Performed By: #### L 500.2500, L100.0100 ####[facility] [address] [place], [address] EST GFR Normal >60 [facility] Comment on above: Result Comment: Canc elled via OM: Order cancelled - Patient discharged Performed By: #### L 500.2500, L100.0100 ####[facility] [address] [place], [address] EST GFR - AA Normal >60 [facility] Comment on above: Result Comment: Canc elled via OM: Order cancelled - Patient discharged Performed By: #### L 500.2500, L100.0100 ####[facility] [address] [place], [address] GAP Normal 5-15 [facility] Comment on above: Result Comment: Canc elled via OM: Order cancelled - Patient discharged Performed By: #### L 500.2500, L100.0100 ####[facility] [address] [place], [address] GLU Normal 74-106 [facility] Comment on above: Result Comment: Canc elled via OM: Order cancelled - Patient discharged Performed By: #### L 500.2500, L100.0100 ####[facility] [address] [place], [address] Potassium Normal 3.5-5.1 [facility] Comment on above: Result Comment: Canc elled via OM: Order cancelled - Patient discharged Performed By: #### L 500.2500, L100.0100 ####[facility] [address] [place], [address] Basic Metabolic Profile (BMP) Normal 136-145 [facility] Comment on above: Result Comment: Canc elled via OM: Order cancelled - Patient discharged Performed By: #### L 500.2500, L100.0100 ####[facility] [address] [place], [address] CBC W/Diff, Automatedon 11-2 Absolute Neut Normal 2.0-7.7 [facility] Comment on above: Result Comment: Canc elled via OM: Order cancelled - Patient discharged Performed By: #### L 500.2500, L100.0100 ####[facility] [address] [place], [address] HCT Normal 37-47 [facility] Comment on above: Result Comment: Canc elled via OM: Order cancelled - Patient discharged Performed By: #### L 500.2500, L100.0100 ####[facility] [address] [place], [address] HGB Normal 12.0-15.0 [facility] Comment on above: Result Comment: Canc elled via OM: Order cancelled - Patient discharged Performed By: #### L 500.2500, L100.0100 ####[facility] [address] [place], [address] MCH Normal 27.0-32.0 [facility] Comment on above: Result Comment: Canc elled via OM: Order cancelled - Patient discharged Performed By: #### L 500.2500, L100.0100 ####[facility] [address] [place], [address] MCHC Normal 32-36 [facility] Comment on above: Result Comment: Canc elled via OM: Order cancelled - Patient discharged Performed By: #### L 500.2500, L100.0100 ####[facility] [address] [place], [address] MCV Normal 81-99 [facility] Comment on above: Result Comment: Canc elled via OM: Order cancelled - Patient discharged Performed By: #### L 500.2500, L100.0100 ####[facility] [address] [place], [address] NEUT% Normal 47-70 [facility] Comment on above: Result Comment: Canc elled via OM: Order cancelled - Patient discharged Performed By: #### L 500.2500, L100.0100 ####[facility] [address] [place], [address] PLT Normal 150-450 [facility] Comment on above: Result Comment: Canc elled via OM: Order cancelled - Patient discharged Performed By: #### L 500.2500, L100.0100 ####[facility] [address] [place], [address] RBC Normal 4.2-5.4 [facility] Comment on above: Result Comment: Canc elled via OM: Order cancelled - Patient discharged Performed By: #### L 500.2500, L100.0100 ####[facility] [address] [place], [address] RDW CV Normal 11.6-14.6 [facility] Comment on above: Result Comment: Canc elled via OM: Order cancelled - Patient discharged Performed By: #### L 500.2500, L100.0100 ####[facility] [address] [place], [address] RDW SD Normal 35.1-43.9 [facility] Comment on above: Result Comment: Canc elled via OM: Order cancelled - Patient discharged Performed By: #### L 500.2500, L100.0100 ####[facility] [address] [place], [address] WBC Normal 4.4-11.0 [facility] Comment on above: Result Comment: Canc elled via OM: Order cancelled - Patient discharged Performed By: #### L 500.2500, L100.0100 ####[facility] [address] [place], [address] Absolute neutrophil countOrd ered By: Juan Esteves on 06-08-2024 Neutrophils (Bld) [#/Vol] 4.5 10*3/uL 2.0-7.7 [facility] Basic Metabolic Profile (BMP )on 06-08-2024 BUN/CRE 24.3 RATIO High 10-20 [facility] Comment on above: Performed By: #### L 501.080 #### [facility] [address] [place], [address] CA,Total 8.2 mg/dL Low 8.5-10.1 [facility] Comment on above: Performed By: #### L 501.080 #### [facility] [address] [place], [address] Chloride [Moles/Vol] 106 mmol/L Normal 98-107 [facility] Comment on above: Performed By: #### L 501.080 #### [facility] [address] [place], [address] CO2 [Moles/Vol] 33.0 mmol/L High 21.0-32.0 [facility] Comment on above: Performed By: #### L 501.080 #### [facility] [address] [place], [address] Creatinine [Mass/Vol] 1.15 mg/dL High 0.55-1.02 [facility] Comment on above: Result Comment: The validity of the calculated GFR GFRAA in patients over 70 years has not been determined. Clinical correlation is essential. Performed By: #### L 501.080 #### [facility] [address] [place], [address] ECRCL 31.52 ml/min Normal [facility] Comment on above: Performed By: #### L 501.080 #### [facility] [address] [place], [address] EST GFR - AA 57 mL/min Low >60 [facility] Comment on above: Result Comment: Afri can Zambian GFR Calc Performed By: #### L 501.080 #### [facility] [address] [place], [address] GAP 4 Low 5-15 [facility] Comment on above: Performed By: #### L 501.080 #### [facility] [address] [place], [address] GFR/1.73 sq M.predicted among non-blacks MDRD (S/P/Bld) [Vol rate/Area] 48 mL/min/{1.73_m2} Low >60 [facility] Comment on above: Result Comment: Non- GFR Calc Performed By: #### L 501.080 #### [facility] [address] [place], [address] Glucose [Mass/Vol] 96 mg/dL Normal 74-106 [facility] Comment on above: Performed By: #### L 501.080 #### [facility] [address] [place], [address] Potassium [Moles/Vol] 4.1 mmol/L Normal 3.5-5.1 [facility] Comment on above: Performed By: #### L 501.080 #### [facility] [address] [place], [address] Sodium [Moles/Vol] 143 mmol/L Normal 136-145 [facility] Comment on above: Performed By: #### L 501.080 #### [facility] [address] [place], [address] Urea nitrogen [Mass/Vol] 28 mg/dL High 7-18 [facility] Comment on above: Performed By: #### L 501.080 #### [facility] [address] [place], [address] Basophil percentageOrdered B y: Juan Esteves on 06-08-2024 Basophils/100 WBC (Bld) 0.3 % 0-[address] [facility] Bedside Glucoseon 06-08-2024 FINGERSTICK GLU 100 mg/dL Normal 74-106 [facility] Comment on above: Result Comment: BANDAR GEMENT OF PATIENT CARE PER NURSING PROTOCOL Performed By: #### L 501.080 ####[facility] [address] [place], [address] FINGERSTICK GLU 92 mg/dL Normal 74-106 [facility] Comment on above: Result Comment: BANDAR GEMENT OF PATIENT CARE PER NURSING PROTOCOL Performed By: #### L 501.080 #### [facility] [address] [place], [address] Blood urea nitrogen (BUN)/cr eatinine ratioOrdered By: Juan Esteves on 06-08-2024 Urea nitrogen/Creatinine [Mass ratio] 24.3 mg/mg High 10-20 [facility] CBC W/Diff, Automatedon 05-19 Absolute Lymph 1.03 X10 3/uL Normal 0.83-4.51 [facility] Comment on above: Performed By: #### L 100.0100 ####[facility] [address] [place], [address] Absolute Neut 4.5 X10 3/uL Normal 2.0-7.7 [facility] Comment on above: Performed By: #### L 100.0100 ####[facility] [address] [place], [address] Basophils/100 WBC (Bld) 0.3 % Normal 0-[address] [facility] Comment on above: Performed By: #### L 100.0100 ####[facility] [address] [place], [address] Eosinophils/100 WBC (Bld) 3.6 % Normal 0-5 [facility] Comment on above: Performed By: #### L 100.0100 ####[facility] [address] [place], [address] Erythrocyte distribution width (RBC) [Ratio] 13.4 % Normal 11.6-14.6 [facility] Comment on above: Performed By: #### L 100.0100 ####[facility] [address] [place], [address] Hematocrit (Bld) [Volume fraction] 31.9 % Low 37-47 [facility] Comment on above: Performed By: #### L 100.0100 ####[facility] [address] [place], [address] Hemoglobin (Bld) [Mass/Vol] 10.0 g/dL Low 12.0-15. 0 [facility] Comment on above: Performed By: #### L 100.0100 ####[facility] [address] [place], [address] IG% 0.300 Normal 0.0-0.9 [facility] Comment on above: Result Comment: IG% - Immature Granulocytes (promyelocytes, myelocytes and metamyelocytes) > 1% indicates that a LEFT SHIFT is Present. Performed By: #### L 100.0100 ####[facility] [address] [place], [address] Lymphocytes/100 WBC (Bld) 16.0 % Low 19-41 [facility] Comment on above: Performed By: #### L 100.0100 ####[facility] [address] [place], [address] MCH (RBC) [Entitic mass] 31.2 pg Normal 27.0-32.0 [facility] Comment on above: Performed By: #### L 100.0100 ####[facility] [address] [place], [address] MCHC (RBC) [Mass/Vol] 31.3 g/dL Low 32-36 [facility] Comment on above: Performed By: #### L 100.0100 ####[facility] [address] [place], [address] MCV (RBC) [Entitic vol] 99.4 fL High 81-99 [facility] Comment on above: Performed By: #### L 100.0100 ####[facility] [address] [place], [address] Monocytes/100 WBC (Bld) 9.2 % Normal 0-10 [facility] Comment on above: Performed By: #### L 100.0100 ####[facility] [address] [place], [address] Neutrophils/100 WBC (Bld) 70.6 % High 47-70 [facility] Comment on above: Performed By: #### L 100.0100 ####[facility] [address] [place], [address] Nucleated RBC (Bld) [#/Vol] 0 10*3/uL Normal 0-5 [facility] Comment on above: Performed By: #### L 100.0100 ####[facility] [address] [place], [address] Platelet mean volume (Bld) [Entitic vol] 10.7 fL Normal 6.2-12.0 [facility] Comment on above: Performed By: #### L 100.0100 ####[facility] [address] [place], [address] Platelets (Bld) [#/Vol] 152 10*3/uL Normal 150-450 [facility] Comment on above: Performed By: #### L 100.0100 ####[facility] [address] [place], [address] RBC (Bld) [#/Vol] 3.21 10*6/uL Low 4.2-5.4 [facility] Comment on above: Performed By: #### L 100.0100 ####[facility] [address] [place], [address] RDW SD 49.5 fl High 35.1-43.9 [facility] Comment on above: Performed By: #### L 100.0100 ####[facility] [address] [place], [address] WBC (Bld) [#/Vol] 6.4 10*3/uL Normal 4.4-11.0 [facility] Comment on above: Performed By: #### L 100.0100 ####[facility] [address] [place], [address] Carbon dioxide measurementOr dered By: Juan Esteves on 06-08-2024 CO2 [Moles/Vol] 33.0 mmol/L High 21.0-32.0 [facility] Chloride measurementOrdered By: Juan Esteves on 06-08-2024 Chloride [Moles/Vol] 106 mmol/L 98-107 [facility] Discharge Instructionon 05-19 Discharge Instruction [facility] Medical Records Department [address] [place] [address] Instructions for Home/Discharge Instructions 06/08/24 0959 MR#: [id number] Acct: [id number] Name: DICK ARTIS Rep #: [id number] : 1935 88 From: Juan Esteves MD PCP: WILMER Maynard Status:ADM IN Discharge Instructions Diet Discharge Diet: 2000 mg Sodium Diet Activity Discharge Activity: Return to Normal Activity Weight Bearing Status: Weight bearing as tolerated Dressing / Incision Call your doctor if you observe: Fever of 101 or Higher, Coldness, Increased Pain, Numbness or Tingling, Change in Color, Inability to urinate, Inability to have a bowel movement, Shortness of breath, Dizziness, Fainting spells, Swelling in the ankles, Chest pain, Prolonged hiccupping, Increased palpitations (irregular heartbeat) and Calf discomfort Follow Up Care When: IN 2 WEEKS Test Results: Test results from this visit will be discussed in further detail at your follow-up appointment, if applicable. Discharge Plan Admission Admit Date/Time: 06/06/24 20:44 Primary Reason for Your Visit: Electrolyte abnormality from Lasix. Mild sigmoid diverticulitis Attending Provider: Juan Esteves Primary Care Provider: Rosaura Suárez AUDIO SPECIALIST Consulting Providers: Jorje Hood Instructions Additional Instructions / Restrictions: Follow-up your own urologist in [place] for right renal cyst. MRI report of abdomen given. Discharge Orders/Prescriptions Prescriptions: New cholecalciferol (vitamin D3) 125 mcg (5,000 unit) Capsule 125 mcg PO DAILY 30 Days Qty: 30 0RF ciprofloxacin HCl [Cipro] 500 mg tablet 500 mg PO BID 5 Days Qty: 10 0RF metronidazole 500 mg tablet 500 mg PO Q8H 5 Days Qty: 15 0RF magnesium 200 mg tablet 400 mg PO BID 30 Days Qty: 120 0RF L.acidoph,saliva-B.bif -S.therm 175 mg Capsule 1 cap PO BID 7 Days Qty: 14 0RF Rx Instructions: Okgj-sst-qfituyo for 1 week calcium carbonate [Calcium 500] 500 mg calcium (1,250 mg) tablet,chewable 500 mg PO BID 30 Days Qty: 60 0RF Continued acetaminophen 500 mg tablet 1,000 mg PO Q6H PRN (Reason: pain) arformoterol 15 mcg/2 mL solution for nebulization 15 mcg inhalation BID duloxetine 20 mg capsule,delayed release(DR/EC) 60 mg PO DAILY spironolactone 25 mg tablet 25 mg PO QDAY zolpidem 5 mg tablet 10 mg PO QHS PRN (Reason: sleep) atorvastatin 40 MG tablet 40 mg PO QHS clopidogrel 75 MG tablet 75 mg PO DAILY albuterol sulfate 90 mcg/actuation HFA aerosol inhaler 2 puff INHALATION BID PRN (Reason: shortness of breath or wheezing) pramipexole 1.5 mg tablet 1.5 mg PO QHS Arthritis Pain Compound 3 click topical BID 5 Days Qty: 0 0RF Rx Instructions: Please use the compounded cream ordered in the hospital. If this assists greatly you may ask PCP at follow-up to request refill from [facility] where it is compounded. carvedilol 12.5 mg tablet 12.5 mg PO BID budesonide 0.5 mg/2 mL suspension for nebulization 0.25 mg inhalation BID 30 Days Qty: 0 0RF polysaccharide iron complex [Ferrex 150] 150 mg iron Capsule 150 mg PO DAILY 30 Days Qty: 30 0RF potassium chloride 20 mEq Tablet,Er Particles/Crystals 20 meq PO BIDCM 30 Days Qty: 60 0RF Changed furosemide 40 mg tablet 40 mg PO DAILY 30 Days Qty: 60 3RF pantoprazole 40 mg Tablet,Delayed Release (Dr/Ec) 40 mg PO DAILY 30 Days Qty: 60 0RF Discontinued nitrofurantoin monohyd/m-cryst 100 mg capsule 1 cap PO BID Referrals / Follow Up: Rosaura Suárez NP, AUDIO SPECIALIST-C [Primary Care Provider] - Within 1 Week Disposition Disposition (needs filled in before D/C Order can be placed): Home, Self Care 06/08/24 1220 Juan Esteves MD CC: AUDIO SPECIALIST-C Rosaura Suárez; Dr. Jorje Hood DO Signed Normal [facility] Eosinophil percentageOrdered By: Juan Esteves on 06-08-2024 Eosinophils/100 WBC (Bld) 3.6 % 0-5 [facility] Erythrocyte distribution wid th ratioOrdered By: Juan Esteves on 06-08-2024 Erythrocyte distribution width (RBC) [Ratio] 13.4 % 11.6-14.6 [facility] Erythrocyte distribution wid th standard deviationOrdered By: Juan Esteves on 06-08-2024 Erythrocyte distribution width (RBC) [Entitic vol] 49.5 fL High 35.1-43.9 [facility] Estimated glomerular filtrat ion rate (GFR) AmericanOrdered By: Juan Esteves on 06-08-2024 Estimated GFR (MDRD) Amer 57 mL/min Low >60 [facility] Comment on above: GFR Calc Estimation of creatinine lee aranceOrdered By: Juan Esteves on 06-08-2024 Estimated Creatinine Clearance Calc 31.52 ml/min [facility] Glomerular filtration rate ( GFR) estimationOrdered By: Juan Esteves on 06-08-2024 Estimated GFR (MDRD) Non-Af Amer 48 mL/min Low >60 [facility] Comment on above: Non- GFR Calc Glucose measurementOrdered B y: Juan Esteves on 06-08-2024 Glucose [Mass/Vol] 96 mg/dL 74-106 [facility] Glucose measurement at bedsi deOrdered By: Juan Esteves on 06-08-2024 Bedside Glucose (Misc Panel) 100 mg/dL 74-106 [facility] Comment on above: MANAGEMENT OF PATIEN T CARE PER NURSING PROTOCOL Hematocrit Auto (Bld) [Volum e fraction]Ordered By: Juan Esteves on 06-08-2024 Hematocrit (Bld) [Volume fraction] 31.9 % Low 37-47 [facility] Hemoglobin measurementOrdere d By: Juan Esteves on 06-08-2024 Hemoglobin (Bld) [Mass/Vol] 10.0 g/dL Low 12.0-15. 0 [facility] Immature granulocytes/100 WB C Auto (Bld)Ordered By: Juan Esteves on 06-08-2024 Immature granulocytes/100 WBC (Bld) 0.300 % 0.0-0.9 [facility] Comment on above: IG% - Immature Granu locytes (promyelocytes, myelocytes and metamyelocytes) > 1% indicates that a LEFT SHIFT is Present. Lymphocytes Auto (Unsp spec) [#/Vol]Ordered By: Juan Esteves on 06-08-2024 Lymphocytes (Bld) [#/Vol] 1.03 10*3/uL 0.83-4.5 1 [facility] Lymphocytes/100 WBC Auto (Un sp spec)Ordered By: Juan Esteves on 06-08-2024 Lymphocytes/100 WBC (Bld) 16.0 % Low 19-41 [facility] MCV (mean corpuscular volume ) determinationOrdered By: Juan Esteves on 06-08-2024 MCV (RBC) [Entitic vol] 99.4 fL High 81-[address] [facility] Mean corpuscular hemoglobin (MCH) determinationOrdered By: Juan Esteves on 06-08-2024 MCH (RBC) [Entitic mass] 31.2 pg 27.0-32.0 [facility] Mean corpuscular hemoglobin concentration (MCHC) determinationOrdered By: Juan Esteves on 06-08-2024 MCHC (RBC) [Mass/Vol] 31.3 g/dL Low 32-36 [facility] Mean platelet volume determi nationOrdered By: Juan Esteves on 06-08-2024 Platelet mean volume (Bld) [Entitic vol] 10.7 fL 6.2-12.0 [facility] Monocyte percentageOrdered B y: Juan Esteves on 06-08-2024 Monocytes/100 WBC (Bld) 9.2 % 0-[address] [facility] Neutrophil percentageOrdered By: Juan Esteves on 06-08-2024 Neutrophils/100 WBC (Bld) 70.6 % High 47-70 [facility] Nucleated red blood cell per centageOrdered By: Juan Esteves on 06-08-2024 Nucleated RBC/100 WBC (Bld) [Ratio] 0 % 0-5 [facility] Phosphoruson 06-08-2024 Phosphate [Mass/Vol] 3.3 mg/dL Normal 2.5-4.9 [facility] Comment on above: Performed By: #### L 501.080 #### [facility] [address] [place] [address]. [place], [place], [id number] Phosphorus measurementOrdere d By: Jorje Weems on 06-08-2024 Phosphorus Level 3.3 mg/dL 2.5-4.9 [facility] Platelet countOrdered By: Norma Esteves on 06-08-2024 Platelets (Bld) [#/Vol] 152 10*3/uL 150-450 [facility] Potassium measurementOrdered By: Juan Esteves on 06-08-2024 Potassium [Moles/Vol] 4.1 mmol/L 3.5-5.1 [facility] RBC Auto (Bld) [#/Vol]Ordere d By: Juan Esteves on 06-08-2024 RBC (Bld) [#/Vol] 3.21 10*6/uL Low 4.2-5.4 [facility] Serum anion gap measurementO rdered By: Juan Esteves on 06-08-2024 Anion gap [Moles/Vol] 4 mmol/L Low 5-15 [facility] Serum or plasma calcium magalis urement (mass/volume)Ordered By: Juan Esteves on 06-08-2024 Calcium [Mass/Vol] 8.2 mg/dL Low 8.5-10.1 [facility] Serum or plasma creatinine m easurement (mass/volume)Ordered By: Juan Esteves on 06-08-2024 Creatinine [Mass/Vol] 1.15 mg/dL High 0.55-1.02 [facility] Comment on above: The validity of the calculated GFR & GFRAA in patients over 70 years has not been determined. Clinical correlation is essential. Serum or plasma urea nitroge n measurement (mass/volume)Ordered By: Juan Esteves on 06-08-2024 Urea nitrogen [Mass/Vol] 28 mg/dL High 7-18 [facility] Sodium levelOrdered By: Zach Esteves on 06-08-2024 Sodium [Moles/Vol] 143 mmol/L 136-145 [facility] White blood cell (WBC) count Ordered By: Juan Esteves on 06-08-2024 WBC (Bld) [#/Vol] 6.4 10*3/uL 4.4-11.0 [facility] Albumin to globulin ratioOrd ered By: Jorje Weems on 06-07-2024 Albumin/Globulin [Mass ratio] 0.9 {ratio} 0.9-2.4 [facility] Bedside Glucoseon 06-07-2024 FINGERSTICK GLU 112 mg/dL High 74-106 [facility] Comment on above: Result Comment: BANDAR GEMENT OF PATIENT CARE PER NURSING PROTOCOL Performed By: #### L 501.2276 #### [facility] [address] [place], [address] FINGERSTICK GLU 131 mg/dL High 74-106 [facility] Comment on above: Result Comment: BANDAR KLINEENT OF PATIENT CARE PER NURSING PROTOCOL Performed By: #### L 501.080 #### [facility] [address] [place], [address] FINGERSTICK GLU 93 mg/dL Normal 74-106 [facility] Comment on above: Result Comment: BANDAR GEMENT OF PATIENT CARE PER NURSING PROTOCOL Performed By: #### L 501.080 #### [facility] [address] [place], [address] FINGERSTICK GLU 99 mg/dL Normal 74-106 [facility] Comment on above: Result Comment: BANDAR GEMENT OF PATIENT CARE PER NURSING PROTOCOL Performed By: #### L 501.080 #### [facility] [address] [place], [address] FINGERSTICK GLU 108 mg/dL High 74-106 [facility] Comment on above: Result Comment: BANDAR GEMENT OF PATIENT CARE PER NURSING PROTOCOL Performed By: #### L 500.3400 #### [facility] [address] [place], [address] Bilirubin Test strip Ql (U)O rdered By: Jorje Weems on 06-07-2024 Bilirubin Ql (U) Negative Negative [facility] Bilirubin, totalOrdered By: Jorje Weems on 06-07-2024 Bilirubin [Mass/Vol] 0.40 mg/dL 0.20-1.00 [facility] Comment on above: For patients on eltr ombopag therapy, use of Dimension [place] TBIL is not recommended. CBC W/Diff, Automatedon 05-19 Absolute Lymph 0.95 X10 3/uL Normal 0.83-4.51 [facility] Comment on above: Performed By: #### L 501.080 #### [facility] [address] [place], [address] Absolute Neut 3.7 X10 3/uL Normal 2.0-7.7 [facility] Comment on above: Performed By: #### L 501.080 #### [facility] [address] [place], [address] Basophils/100 WBC (Bld) 0.5 % Normal 0-[address] [facility] Comment on above: Performed By: #### L 501.080 #### [facility] [address] [place], [address] Eosinophils/100 WBC (Bld) 3.4 % Normal 0-5 [facility] Comment on above: Performed By: #### L 501.080 #### [facility] [address] [place], [address] Erythrocyte distribution width (RBC) [Ratio] 13.2 % Normal 11.6-14.6 [facility] Comment on above: Performed By: #### L 501.080 #### [facility] [address] [place], [address] Hematocrit (Bld) [Volume fraction] 32.7 % Low 37-47 [facility] Comment on above: Performed By: #### L 501.080 #### [facility] [address] [place], [address] Hemoglobin (Bld) [Mass/Vol] 10.4 g/dL Low 12.0-15. 0 [facility] Comment on above: Performed By: #### L 501.080 #### [facility] [address] [place], [address] IG% 0.400 Normal 0.0-0.9 [facility] Comment on above: Result Comment: IG% - Immature Granulocytes (promyelocytes, myelocytes and metamyelocytes) > 1% indicates that a LEFT SHIFT is Present. Performed By: #### L 501.080 #### [facility] [address] [place], [address] Lymphocytes/100 WBC (Bld) 17.2 % Low 19-41 [facility] Comment on above: Performed By: #### L 501.080 #### [facility] [address] [place], [address] MCH (RBC) [Entitic mass] 31.1 pg Normal 27.0-32.0 [facility] Comment on above: Performed By: #### L 501.080 #### [facility] [address] [place], [address] MCHC (RBC) [Mass/Vol] 31.8 g/dL Low 32-36 [facility] Comment on above: Performed By: #### L 501.080 #### [facility] [address] [place], [address] MCV (RBC) [Entitic vol] 97.9 fL Normal 81-[address] [facility] Comment on above: Performed By: #### L 501.080 #### [facility] [address] [place], [address] Monocytes/100 WBC (Bld) 12.0 % High 0-[address] [facility] Comment on above: Performed By: #### L 501.080 #### [facility] [address] [place], [address] Neutrophils/100 WBC (Bld) 66.5 % Normal 47-70 [facility] Comment on above: Performed By: #### L 501.080 #### [facility] [address] [place], [address] Nucleated RBC (Bld) [#/Vol] 0 10*3/uL Normal 0-5 [facility] Comment on above: Performed By: #### L 501.080 #### [facility] [address] [place], [address] Platelet mean volume (Bld) [Entitic vol] 10.5 fL Normal 6.2-12.0 [facility] Comment on above: Performed By: #### L 501.080 #### [facility] [address] [place], [address] Platelets (Bld) [#/Vol] 137 10*3/uL Low 150-450 [facility] Comment on above: Performed By: #### L 501.080 #### [facility] [address] [place], [address] RBC (Bld) [#/Vol] 3.34 10*6/uL Low 4.2-5.4 [facility] Comment on above: Performed By: #### L 501.080 #### [facility] [address] [place], [address] RDW SD 47.8 fl High 35.1-43.9 [facility] Comment on above: Performed By: #### L 501.080 #### [facility] [address] [place], [address] WBC (Bld) [#/Vol] 5.5 10*3/uL Normal 4.4-11.0 [facility] Comment on above: Performed By: #### L 501.080 #### [facility] [address] [place], [address] Chloride (U) [Moles/Vol]Orde red By: Huan Lomas on 06-07-2024 Urine Chloride 113 mmol/L Not Establ. [facility] Comprehensive Metabolic Prof ilon 06-07-2024 Albumin [Mass/Vol] 3.0 g/dL Low 3.2-5.0 [facility] Comment on above: Performed By: #### L 501.5200 #### [facility] [address] [place], [address] Albumin/Globulin [Mass ratio] 0.9 {ratio} Normal 0.9-2.4 [facility] Comment on above: Performed By: #### L 501.5200 #### [facility] [address] [place], [address] ALK P 88 U/L Normal 45-117 [facility] Comment on above: Performed By: #### L 501.5200 #### [facility] [address] [place], [address] ALT [Catalytic activity/Vol] 16 U/L Normal 13-56 [facility] Comment on above: Performed By: #### L 501.5200 #### [facility] [address] [place], [address] AST [Catalytic activity/Vol] 19 U/L Normal 15-37 [facility] Comment on above: Performed By: #### L 501.5200 #### [facility] [address] [place], [address] Bilirubin [Mass/Vol] 0.40 mg/dL Normal 0.20-1.00 [facility] Comment on above: Result Comment: For patients on eltrombopag therapy, use of Dimension [place] TBIL is not recommended. Performed By: #### L 501.5200 #### [facility] [address] [place], [address] BUN/CRE 26.2 RATIO High 10-20 [facility] Comment on above: Performed By: #### L 501.5200 #### [facility] [address] [place], [address] CA,Total 7.6 mg/dL Low 8.5-10.1 [facility] Comment on above: Performed By: #### L 501.5200 #### [facility] [address] [place], [address] Chloride [Moles/Vol] 104 mmol/L Normal 98-107 [facility] Comment on above: Performed By: #### L 501.5200 #### [facility] [address] [place], [address] CO2 [Moles/Vol] 34.0 mmol/L High 21.0-32.0 [facility] Comment on above: Performed By: #### L 501.5200 #### [facility] [address] [place], [address] Creatinine [Mass/Vol] 1.26 mg/dL High 0.55-1.02 [facility] Comment on above: Result Comment: The validity of the calculated GFR GFRAA in patients over 70 years has not been determined. Clinical correlation is essential. Performed By: #### L 501.5200 #### [facility] [address] [place], [address] ECRCL 27.70 ml/min Normal [facility] Comment on above: Performed By: #### L 501.5200 #### [facility] [address] [place], [address] EST GFR - AA 52 mL/min Low >60 [facility] Comment on above: Result Comment: Afri can Zambian GFR Calc Performed By: #### L 501.5200 #### [facility] [address] [place], [address] GAP 6 Normal 5-15 [facility] Comment on above: Performed By: #### L 501.5200 #### [facility] [address] [place], [address] GFR/1.73 sq M.predicted among non-blacks MDRD (S/P/Bld) [Vol rate/Area] 43 mL/min/{1.73_m2} Low >60 [facility] Comment on above: Result Comment: Non- GFR Calc Performed By: #### L 501.5200 #### [facility] [address] [place], [address] Globulin (S) [Mass/Vol] 3.4 g/dL Normal 2.2-4.2 [facility] Comment on above: Performed By: #### L 501.5200 #### [facility] [address] [place], [address] Glucose [Mass/Vol] 105 mg/dL Normal 74-106 [facility] Comment on above: Result Comment: Fast ing Glucose result from 100 to 125 mg/dL suggests IMPAIRED HOMEOSTASIS per A.D.A. criteria. Performed By: #### L 501.5200 #### [facility] [address] [place], [address] Potassium [Moles/Vol] 3.9 mmol/L Normal 3.5-5.1 [facility] Comment on above: Performed By: #### L 501.5200 #### [facility] [address] [place], [address] Sodium [Moles/Vol] 144 mmol/L Normal 136-145 [facility] Comment on above: Performed By: #### L 501.5200 #### [facility] [address] [place], [address] T PROT 6.4 g/dL Normal 6.4-8.2 [facility] Comment on above: Performed By: #### L 501.5200 #### [facility] [address] [place], [address] Urea nitrogen [Mass/Vol] 33 mg/dL High 7-18 [facility] Comment on above: Performed By: #### L 501.5200 #### [facility] [address] [place], [address] Epithelial cells.squamous LM Ql (Urine sed)Ordered By: Jorje Weems on 06-07-2024 Epithelial cells.squamous LM.HPF (Urine sed) [#/Area] 0 /[HPF] 5-10 [facility] Glucose Ql (U)Ordered By: Lucien Weems on 06-07-2024 Urine Glucose (UA) Normal mg/dl Normal [facility] High density lipoprotein (HD L) measurementOrdered By: Jorje Weems on 06-07-2024 Cholesterol in HDL [Mass/Vol] 36 mg/dL Low >40 [facility] Comment on above: The drugs N-Acetylcy steine and Metamizole may falsely depress this assay. Reference Range HDL <40 mg/dL Low HDL Cholesterol HDL >or= 60 mg/dL High HDL Cholesterol Ketones Test strip Ql (U)Ord ered By: Jorje Weems on 06-07-2024 Ketones Ql (U) Negative Negative [facility] - Chemistry and C hemistry - challengeOrdered By: Jorje Weems on 06-07-2024 AST [Catalytic activity/Vol] 19 U/L 15-37 [facility] Lipid Profileon 06-07-2024 Cholesterol [Mass/Vol] 170 mg/dL Normal 200 [facility] Comment on above: Result Comment: <200 mg/dL Desirable 200-240 mg/dL Borderline >240 mg/dL High Risk Performed By: #### L 501.5200 #### [facility] [address] [place], [address] Cholesterol in HDL [Mass/Vol] 36 mg/dL Low [facility] Comment on above: Result Comment: The drugs N-Acetylcysteine and Metamizole may falsely depress this assay. Reference Range HDL <40 mg/dL Low HDL Cholesterol HDL >or= 60 mg/dL High HDL Cholesterol Performed By: #### L 501.5200 #### [facility] [address] [place], [address] Cholesterol in LDL [Mass/Vol] 98 mg/dL Normal 0-130 [facility] Comment on above: Performed By: #### L 501.5200 #### [facility] [address] [place], [address] Cholesterol in VLDL [Mass/Vol] 36 mg/dL Normal 5-40 [facility] Comment on above: Performed By: #### L 501.5200 #### [facility] [address] [place], [address] Triglyceride [Mass/Vol] 178 mg/dL Normal [facility] Comment on above: Result Comment: The drugs N-Acetylcysteine and Metamizole may falsely depress this assay. Serum Triglycerides Reference Interval Normal <150 mg/dL Borderline high 150 - 199 mg/dL High 200 - 499 mg/dL Very High > or = 500 mg/dL Performed By: #### L 501.5200 #### [facility] [address] [place], [place], [address] Low density lipoprotein (LDL ) cholesterol measurementOrdered By: Jorje Weems on 06-07-2024 Cholesterol in LDL [Mass/Vol] 98 mg/dL 0-130 [facility] MRI Abd WITH and W/O Contras ton 06-07-2024 MRI Abd WITH and W/O Contrast [facility] [address] [place], [place] [address] MRI Abd WITH and W/O Contrast MR#: [id number] Acct: [id number] Name: DICK ARTIS Rep #: [id number] : 1935 F 88 From: Yosi Price MD PCP: WILMER Maynard Status: ADM IN Study: MRI Abd WITH and W/O Contrast Date of Exam: Exam# [id number] Ordering Dr: Jorje Hood DO [id number] STUDY: MRI ABDOMEN WITH AND WITHOUT CONTRAST REASON FOR EXAM: Female, 88 years old. 4.3 cm Right Renal Mass noted on CT. TECHNIQUE: Standardized fat and water weighted pulse sequences were obtained in all 3 orthogonal planes post contrast administration. IV 13cc clariscan was administered for the contrast portion of the examination. COMPARISON: CT 06/06/2024 FINDINGS: The visualized lung bases are unremarkable. The visualized portions of the heart are within normal limits. Normal liver. Normal gallbladder and extrahepatic biliary system. Normal spleen. Normal pancreas. There is symmetric enlargement of the adrenal glands suggesting adrenal hyperplasia. There is moderate cortical atrophy of the right kidney, consistent with chronic medical renal disease. There are multiple round T2 hyperintense masses of the right kidney consistent with cysts. A 1.5 cm lesion in the posterior cortex of the upper pole the right kidney is hyperintense on T1-weighted images. A 4 cm lesion in the anterior aspect of the midsection of right kidney is hyperintense on T1-weighted images and corresponds to the mass of increased attenuation seen on CT. None of these lesions demonstrates contrast enhancement consistent with hyperdense (hemorrhagic or proteinaceous) cysts (Bosniak type II). Normal left kidney. Normal visualized stomach. Normal small intestine. Normal colon. There is non-visualization of the appendix. Normal abdominal aorta. Normal inferior vena cava. Normal retroperitoneum. Normal abdominal wall. Normal osseous structures. 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 Electronically Signed: Yosi Price MD at 13:47 EST , CC: WILMER Suárez; Dr. Jorje Hood DO 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: Signed Normal [facility] Magnesiumon 06-07-2024 Magnesium [Mass/Vol] 2.1 mg/dL Normal 1.6-2.6 [facility] Comment on above: Performed By: #### L 501.5200 #### [facility] [address] [place], [place], [id number] Magnesium measurementOrdered By: Jorje Weems on 06-07-2024 Magnesium [Mass/Vol] 2.1 mg/dL 1.6-2.6 [facility] Methadone, urineOrdered By: Jorje Weems on 06-07-2024 Urine Methadone Screen Negative < 300 ng/mL [facility] Microscopic analysis of urin e for red blood cells (RBC)Ordered By: Jorje Weems on 06-07-2024 Urine RBC 0 SEEN /hpf 0-5 [facility] Modified Barium Swallow Stud yon 06-07-2024 Modified Barium Swallow Study [facility] Speech Pathology [address] [place] [address] Modified Barium Swallow Study MR#: [id number] Acct: [id number] Name: DICK ARTIS Rep #: [id number] : 1935 88 From: Denise Musa M.A., [facility] Modified Barium Swallow Patient Information Study Date: 06/07/24 Study Time: 13:30 Direct Billable Minutes: 121 Total Minutes procedure reportin Diagnosis: Dysphagia R13.10, GERD K21.9 Referring Physician: Juan Esteves Reason for Referral: Objectively assess swallow function, assess risk for aspiration, and determine recommendations for least restrictive diet textures and compensatory strategies to improve safety of swallow. Medical History: PMH from physician Concha P: Essential hypertension; on Coreg and Spironolactone, hyperlipidemia; on atorvastatin, DM-2; of unknown control, history of chronic diastolic CHF; with preserved LVEF on Lasix plus supplemental KCl BID, former tobacco abuse (quit 2021); with subsequent COPD, chronic hypoxic respiratory failure; on 2L NC continuous, history of bilateral carotid artery stenosis with previous TIA (2018); s/p carotid angioplasty on Plavix, PAD; with claudication, CKD; stage IIIb, history of renal calculi, history of renal cyst, SOPHIE, history of diverticulitis, RLS; on pramipexole, history of depression; on amitriptyline and duloxetine, chronic insomnia; on as needed nightly Ambien, history of migraine headaches, history of severe GERD; on Protonix BID, history of thyroid surgery, history of total hysterectomy, history of basal cell carcinoma on forehead; s/p excision, history of vertigo, listed allergy to lisinopril (edema), listed allergy to aspirin (upset stomach), OA; with history of Right lumbar radiculopathy and recently diagnosed UTI with patient started on empiric Nitrofurantoin 2 days ago. Pt presented to [facility] ED w/ auditory hallucinations and diarrhea. She was admitted for management of hallucinations, diarrhea, acute diverticulitis, hypomagnesemia, hypocalcemia, hypokalemia, amongst several other comorbidities, including finding of a right renal mass. Pt was made NPO and referred for ST consult by RN after patient reported concerns to RN for long history of swallowing difficulty. Pt reported difficulty consuming foods such as burgers and chicken wings w/ sensation of food getting caught in her throat, choking, and vomiting. She also feels she has bad reflux w/ carbonated beverages. Pt participated in BSE 06/07/2024 w/ recommendation for Easy to Chew textures / Thin liquids w/ aspiration precautions and direct supervision for meals w/ plan for MBSS this afternoon to further assess concerns for pharyngeal dysphagia w/ patient reporting food getting caught in her throat and pt reporting choking episodes. Pt last met w/ OP GI w/ IN[facility] Cox for visit on 04/30/2024. Progress note included... EGD 04.19.24: - Abnormal esophageal motility, consistent with aperistalsis. Dilated. - Small hiatal hernia. - Gastric mucosal variant. Biopsied. - A few duodenal polyps. Resected and retrieved. O.V. 05.01.24; Pt continues to have episodes of choking and vomiting. Since her EGD she has had two episodes of choking. She has not been able to identify foods that trigger it but it is sometimes meat. She has had two episodes of heartburn since her EGD. She has been taking pantopraozle 40 mg just once a day. Per pt, she is planned for an upcoming botox injection w/ Dr. Real to improve esophageal motility; however, last office visit recommended PPI twice a day, low dose TCA, Consider manometry, and f/u in 3 months. Current Diet Ordered: Easy to Chew textures / Thin liquids Dentition: Lower Dentures (Upper implants; however, no upper dentition in place) and Missing Teeth Mental Status: WNL Respiratory Status: Oxygenating on 2L/M nasal cannula Penetration-Aspiration Scale Penetration-Aspiration Scale: OBJECTIVE ASSESSMENT OF SWALLOW FUNCTION (QUANTITATIVE ??? PER TRIAL): PENETRATION / ASPIRATION SCALE (ROBBINS): 1 = does not enter airway 2 = enters airway/above vocal folds/ejected 3 = enters airway/above vocal folds/not ejected 4 = enters airway/contacts vocal folds/ejected 5 = enters airway/contacts vocal folds/not ejected 6 = enters airway/below vocal folds/ejected 7 = enters airway/below vocal folds/not ejected despite effort 8 = enters airway/below vocal folds/no effort VIDEOFLOROSCOPIC SCALE SCORE (ROBBINS): Grade I = aspiration of material that has penetrated into the laryngeal vestibule, intact cough reflex Grade II = aspiration < 10 % of the bolus, intact cough reflex Grade III = aspiration of < 10 % of the bolus, reduced cough reflex or aspiration of > 10 % of the bolus, intact cough reflex Grade IV = aspiration of > 10 % of the bolus, reduced cough reflex Penetration-Aspiration Scale Score Thin Liquid via teaspoon: Result: 2= enter airway/above vocal folds/ejected (more content not included)... Normal [facility] Mucus LM Ql (Urine sed)Order ed By: Jorje Weems on 06-07-2024 Mucus Ql (Urine sed) 0 SEEN /hpf [facility] Nitrite Test strip Ql (U)Ord ered By: Jorje Weems on 06-07-2024 Nitrite Ql (U) Negative Negative [facility] No Panel InformationOrdered By: Jorje Weems on 06-07-2024 Urine Drug Screen Comment [facility] Comment on above: CONFIRMATORY TESTING FOR ALL POSITIVE URINE DRUG SCREENRESULTS WILL ONLY BE SENT OUT UPON PHYSICIAN ORDER. VISTA Urine Drug Screen methods provide only preliminaryanalytical test results. A more specific alternate chemicalmethod must be used in order to obtain a confirmedanalytical result. Gas chromatography/mass spectrometery(GC/MS) is the preferred confirmatory method. Clinicalconsideration and professional judgement should be appliedto any drug of abuse test result, particularly whenpreliminary positive results are used. URINE TCA TESTING MUST BE ORDERED SEPARATELY. USE TESTMNEMONIC: UTCA Osmolality (U) [Osmolality]O rdered By: Huan Lomas on 06-07-2024 Urine Osmolality 327 mOsm/KG >50 [facility] Comment on above: Normal Urine Referen ce Ranges Random: 50 - 1200 mOsm/kg H20 depending on fluid intake Random: >850 mOsm/kg after 12 hour fluid restriction 24 hour: ~300 - 900 mOsm/kg H2O Osmolality, Urineon 06-07-20 24 OSMOLALITY,UR 327 mOsm/KG Normal [facility] Comment on above: Result Comment: Normal Urine Reference Ranges Random: 50 - 1200 mOsm/kg H20 depending on fluid intake Random: >850 mOsm/kg after 12 hour fluid restriction 24 hour: 300 - 900 mOsm/kg H2O Performed By: #### L 501.5200 #### [facility] [address] [place], [place] [address], [address] Phosphoruson 06-07-2024 Phosphate [Mass/Vol] 4.4 mg/dL Normal 2.5-4.9 [facility] Comment on above: Performed By: #### L 484.3049 #### [facility] [address] [place], [place], [address] Phosphate [Mass/Vol] 4.3 mg/dL Normal 2.5-4.9 [facility] Comment on above: Performed By: #### L 061.7869 #### [facility] [address] [place], [place], [id number] Protein Test strip Ql (U)Ord ered By: Jorje Weems on 06-07-2024 Protein Ql (U) Negative Negative [facility] Quantitative urine opiates m easurementOrdered By: Jorje Weems on 06-07-2024 Opiates Ql (U) Negative < 300 ng/mL [facility] Serum globulin measurementOr dered By: Jorje Weems on 06-07-2024 Globulin (S) [Mass/Vol] 3.4 g/dL 2.2-4.2 [facility] Serum or plasma alanine toney otransferase (ALT) measurementOrdered By: Jorje Weems on 06-07-2024 ALT [Catalytic activity/Vol] 16 U/L 13-56 [facility] Serum or plasma albumin magalis urement (mass/volume)Ordered By: Jorje Weems on 06-07-2024 Albumin [Mass/Vol] 3.0 g/dL Low 3.2-5.0 [facility] Serum or plasma alkaline ilan sphatase measurementOrdered By: Jorje Weems on 06-07-2024 ALP [Catalytic activity/Vol] 88 U/L 45-117 [facility] Serum or plasma cholesterol measurement (mass/volume)Ordered By: Jorje Weems on 06-07-2024 Cholesterol [Mass/Vol] 170 mg/dL <200 [facility] Comment on above: <200 mg/dL Desirable 200-240 mg/dL Borderline >240 mg/dL High Risk Sodium urOrdered By: Huan quan on 06-07-2024 Sodium (U) [Moles/Vol] 120 mmol/L Not Establ. [facility] Total proteinOrdered By: Jordan Weems on 06-07-2024 Protein [Mass/Vol] 6.4 g/dL 6.4-8.2 [facility] Triglycerides measurementOrd ered By: Jorje Weems on 06-07-2024 Triglyceride [Mass/Vol] 178 mg/dL <[address] [facility] Comment on above: The drugs N-Acetylcy steine and Metamizole may falsely depress this assay.Serum Triglycerides Reference Interval Normal <150 mg/dL Borderline high 150 - 199 mg/dL High 200 - 499 mg/dL Very High > or = 500 mg/dL Urinalysis, Completeon 06-07 EPI,SQUAMOUS 0-5 SEEN Normal 5-10 [facility] Comment on above: Order Comment: CLEAN CATCH Performed By: #### L 501.5200 #### [facility] [address] [place], [address] BACTERIA 0 SEEN Normal None Seen [facility] Comment on above: Order Comment: CLEAN CATCH Performed By: #### L 501.5200 #### [facility] [address] [place], [address] Mucus Ql (Urine sed) 0 SEEN Normal [facility] Comment on above: Order Comment: CLEAN CATCH Performed By: #### L 501.5200 #### [facility] [address] [place], [address] RBC 0 SEEN Normal 0-5 [facility] Comment on above: Order Comment: CLEAN CATCH Performed By: #### L 501.5200 #### [facility] [address] [place], [address] WBC 0 SEEN Normal 0-5 [facility] Comment on above: Order Comment: CLEAN CATCH Performed By: #### L 501.5200 #### [facility] [address] [place], [address] Urine Chlorideon 06-07-2024 UR CL 113 mmol/L Normal Not Establ. [facility] Comment on above: Performed By: #### L 501.5200 #### [facility] [address] [place], [address] Urine Drug Screen (VISTA)on 06-07-2024 AMPHETAMINES Negative Normal <1000 ng/mL [facility] Comment on above: Performed By: #### L 500.3400 #### [facility] [address] [place], [address] BARBITIURATES Negative Normal < 200 ng/mL [facility] Comment on above: Performed By: #### L 500.3400 #### [facility] [address] [place], [address] BENZODIAZIPINE Negative Normal < 200 ng/mL [facility] Comment on above: Performed By: #### L 500.3400 #### [facility] [address] [place], [address] COCAINE Negative Normal < 300 ng/mL [facility] Comment on above: Performed By: #### L 500.3400 #### [facility] [address] [place], [address] ECSTACY Negative Normal < 500 ng/mL [facility] Comment on above: Performed By: #### L 500.3400 #### [facility] [address] [place], [address] METHADONE Negative Normal < 300 ng/mL [facility] Comment on above: Performed By: #### L 500.3400 #### [facility] [address] [place], [address] OPIATES Negative Normal < 300 ng/mL [facility] Comment on above: Performed By: #### L 500.3400 #### [facility] [address] [place], [address] PCP Negative Normal < 25 ng/mL [facility] Comment on above: Performed By: #### L 500.3400 #### [facility] [address] [place], [place], [address] THC Negative Normal < 50 ng/mL [facility] Comment on above: Performed By: #### L 500.3400 #### [facility] [address] [place], [place], [address] VISTA UDS PH 6 Normal [facility] Comment on above: Performed By: #### L 500.3400 #### [facility] [address] [place], [place], [address] Urine Sodiumon 06-07-2024 Sodium (U) [Moles/Vol] 120 mmol/L Normal Not Establ. [facility] Comment on above: Performed By: #### L 501.5200 #### [facility] [address] [place], [place], [address] Urine amphetamine measuremen tOrdered By: Jorje Weems on 06-07-2024 Amphetamines Ql (U) Negative <1000 ng/mL [facility] Urine barbiturates measureme ntOrdered By: Jorje Weems on 06-07-2024 Urine Barbiturates Screen Negative < 200 ng/mL [facility] Urine benzodiazepine levelOr dered By: Jorje Weems on 06-07-2024 Benzodiazepines Ql (U) Negative < 200 ng/mL [facility] Urine blood detectionOrdered By: Jorje Weems on 06-07-2024 Urine Occult Blood Negative Negative [facility] Urine clarityOrdered By: Jordan Weems on 06-07-2024 Clarity (U) Clear Clear [facility] Urine cocaine levelOrdered B y: Jorje Weems on 06-07-2024 Cocaine Ql (U) Negative < 300 ng/mL [facility] Urine color determinationOrd ered By: Jorje Weems on 06-07-2024 Color (U) Yellow Yellow [facility] Urine jmfkm-4-tpaogzaktjunix abinol (THC) measurementOrdered By: Jorje Weems on 06-07-2024 Cannabinoids Screen Ql (U) Negative < 50 ng/m L [facility] Urine leukocyte esterase det ection by dipstickOrdered By: Jorje Weems on 06-07-2024 Leukocyte esterase Test strip Ql (U) Negative Negative [facility] Urine methylenedioxymethamph etamine (MDMA) measurementOrdered By: Jorje Weems on 06-07-2024 MDMA (Ecstasy) Screen Negative < 500 ng/mL [facility] Urine pHOrdered By: Jorje esparza on 06-07-2024 pH (U) 8.0 [pH] 5.0 - 8.0 [facility] Urine phencyclidine (PCP) de tectionOrdered By: Jorje Weems on 06-07-2024 Phencyclidine Ql (U) Negative < 25 ng/mL [facility] Urine sediment bacteria coun t by microscopy (number/high power field)Ordered By: Jorje Weems on 06-07-2024 Bacteria LM.HPF (Urine sed) [#/Area] 0 /[HPF] None Seen [facility] Urine specific gravity measu rementOrdered By: Jorje Weems on 06-07-2024 Specific gravity (U) [Rel density] 1.015 1.002-1.03 0 [facility] Urobilinogen Ql (U)Ordered B y: Jorje Weems on 06-07-2024 Urine Urobilinogen Normal mg/dl Normal [facility] Very low density lipoprotein (VLDL) cholesterol measurementOrdered By: Jorje Weems on 06-07-2024 VLDL Cholesterol 36 mg/dL 5-40 [facility] Vitamin B12on 06-07-2024 Cobalamin (Vitamin B12) [Mass/Vol] 528 pg/mL Normal 211-911 [facility] Comment on above: Performed By: #### L 501.5200 #### [facility] [address] [place], [address] White blood cell countOrdere d By: Jorje Weems on 06-07-2024 Urine WBC 0 SEEN /hpf 0-5 [facility] 25(OH)D3 SerPl-mCncon 2023 25-hydroxyvitamin D3 [Mass/Vol] 64.6 ng/mL Normal 31.0-80.0 [facility] Comment on above: Order Comment: Speci men Type: BLOOD SPECIMENOrdering Facility: [facility] Address: [address] [place] [address] Performed By: #### 1 989-3 ####[facility] LABCLIA [id number] [id number] [address] [place] Abdomen/Pelvis without Conto n 06-06-2024 Abdomen/Pelvis without Cont [facility] Imaging Services [address] [place] [address] Abdomen/Pelvis without Cont MR#: [id number] Acct: [id number] Name: DICK ARTIS Rep #: [id number] : 1935 F [id number] From: Pedro kevin DO PCP: WILMER Maynard Status: ADM IN Study: Abdomen/Pelvis without Cont Date of Exam: 05/19 Exam# [id number] Ordering Dr: Jorje Hood DO ADDENDUM by Dr. Pedro Diaz DO on 06/06/24 at 2318 [id number] EXAM: CT ABDOMEN AND PELVIS WITHOUT INTRAVENOUS CONTRAST CLINICAL INDICATION: Diarrhea. Evaluate for Colitis. TECHNIQUE: Helically acquired images were obtained of the abdomen and pelvis without intravenous contrast. This CT exam was performed using one or more of the following dose reduction techniques: automated exposure control, adjustment of the mA and/or kV according to patient size, and/or use of iterative reconstruction technique. COMPARISON: CT abdomen and pelvis, 02/22/2016 FINDINGS: LOWER THORAX: Coronary artery calcifications and/or stents. Lung bases are clear. No cardiomegaly. No significant pericardial effusion. ABDOMEN: LIVER: No significant abnormality. Homogeneous. GALLBLADDER AND BILE DUCTS: No significant abnormality. No calcified gallstones. No gallbladder distention or wall edema. No intra- or extrahepatic biliary ductal dilation. PANCREAS: No significant abnormality. No focal cystic mass. SPLEEN: No significant abnormality. Normal size without focal cystic or solid mass. ADRENALS: Left adrenal nodule measuring approximately 1.3 cm with Hounsfield attenuation of 12. KIDNEYS AND URETERS: There is a hyperdense renal mass on the right which is new compared to the prior examination measuring 4.3 cm. Right renal atrophy. Right renal cysts are present for which no follow-up is indicated. No hydronephrosis. STOMACH AND BOWEL: There is colonic diverticulosis. There is wall thickening in the sigmoid colon suggesting acute diverticulitis. No discrete pericolonic abscess is present and there is no evidence of perforation. No stomach or bowel distention. PELVIS: APPENDIX: No evidence of acute appendicitis. BLADDER: No significant abnormality. REPRODUCTIVE: Status post hysterectomy. ABDOMEN and PELVIS: INTRAPERITONEAL SPACE: Mild stranding in the left lower quadrant mesentery. No free air or free fluid. BONES/JOINTS: L1 superior endplate mild compression fracture with less than 25% vertebral body height loss and mild compression fracture of T11 at the superior endplate with less than 25% vertebral body height loss. No suspicious lytic or blastic abnormality. SOFT TISSUES: No significant abnormality. No discrete abdominal or pelvic wall hernia. VASCULATURE: Atherosclerosis of the aorta and its branch vessels. LYMPH NODES: No significant abnormality. No enlarged lymph nodes. 06/06/248 Date cc: WILMER Suárez; Dr. Jorje Hood DO * Signed ADDENDUM by Dr. Pedro Diaz DO on 06/06/[address]/Abdomen/Pelvis without Cont IMPRESSION: 1. Findings suggestive of acute uncomplicated sigmoid diverticulitis. 2. There is a hyperdense renal mass on the right which is new compared to the prior examination measuring 4.3 cm. ACR White Paper guidelines (Herts, et al. JACR 2018; 15(2):264-273) recommend MRI or CT without and with intravenous contrast. 3. Left adrenal nodule measuring approximately 1.3 cm with Hounsfield attenuation of 12. 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 ACR White Paper guidelines (Maria-Artis, et al. JACR 2017; 14(8):0260-1623) suggest no imaging follow-up is necessary. ACR White Paper guidelines (Maria-Artis, et al. JACR 2017; 14(8):5773-5280) suggest no imaging follow-up is necessary. Consider biochemical assays to determine functional status and exclude pheochromocytoma if biopsy/resection is planned. 4. L1 superior endplate mild compression fracture with less than 25% vertebral body height loss and mild compression fracture of T11 at the superior endplate with less than 25% vertebral body height loss. These are age indeterminate. N.B. : SPARKLE ROMERO RN, confirmed on 06/06/2024 23:59:19 (ET) that the healthcare facility has received the radiology report. Electronically Signed: Pedro Diaz DO at 23:18 EST , 06/07/24 0006 Date cc: WILMER Suárez; Dr. Jorje Hood, * Signed ACR Level 3 findings have been noted. An addendum which confirms receipt of the report will follow. [id number] EXAM: CT ABDOMEN AND PELVIS WITHOUT INTRAVENOUS CONTRAST CLINICAL INDICATION: Diarrhea. Evaluate for Colitis. (more content not included)... Normal [facility] Alcohol, Blood (Medical)-Ser umon 06-06-2024 SERUM ETOH < 3.0 Normal [facility] Comment on above: Result Comment: The serum:whole blood ethanol ratio is approximately 1.14 and varies slightly with hematocrit. Medical Alcohol reference interval and critical value in non-tolerant individuals; 50 - 100 Impairment 100 Intoxication 100 - 250 Severe Poisoning 250 - 400 Deep/possible fatal coma Performed By: #### L 500.3400 #### [facility] [address] [place], [address] Bacteria Ur Culton 4 Bacteria identified Cx Nom (U) ORGANISM ID: 1 50,000-<100,000 CFU/ml Normal urogenital ting Normal [facility] Comment on above: Performed By: #### 6 30-4 ####[facility] LABCLIA [id number] [facility] [id number] [address] [place] Basic Metabolic Profile (BMP )on 06-06-2024 BUN/CRE 25.3 RATIO High 10-20 [facility] Comment on above: Performed By: #### L 500.3400 #### [facility] [address] [place], [address] CA,Total 6.8 mg/dL Low 8.5-10.1 [facility] Comment on above: Performed By: #### L 500.3400 #### [facility] [address] [place], [address] Chloride [Moles/Vol] 101 mmol/L Normal 98-107 [facility] Comment on above: Performed By: #### L 500.3400 #### [facility] [address] [place], [address] CO2 [Moles/Vol] 33.0 mmol/L High 21.0-32.0 [facility] Comment on above: Performed By: #### L 500.3400 #### [facility] [address] [place], [address] Creatinine [Mass/Vol] 1.66 mg/dL High 0.55-1.02 [facility] Comment on above: Result Comment: The validity of the calculated GFR GFRAA in patients over 70 years has not been determined. Clinical correlation is essential. Performed By: #### L 500.3400 #### [facility] [address] [place], [address] EST GFR - AA 38 mL/min Low >60 [facility] Comment on above: Result Comment: Afri can Zambian GFR Calc Performed By: #### L 500.3400 #### [facility] [address] [place], [address] GAP 9 Normal 5-15 [facility] Comment on above: Performed By: #### L 500.3400 #### [facility] [address] [place], [address] GFR/1.73 sq M.predicted among non-blacks MDRD (S/P/Bld) [Vol rate/Area] 31 mL/min/{1.73_m2} Low >60 [facility] Comment on above: Result Comment: Non- GFR Calc Performed By: #### L 500.3400 #### [facility] [address] [place], [address] Glucose [Mass/Vol] 181 mg/dL High 74-106 [facility] Comment on above: Result Comment: Fast ing Glucose result greater than or equal to 126 mg/dL suggests DIABETES MELLITUS per A.D.A. criteria. Performed By: #### L 500.3400 #### [facility] [address] [place], [address] Potassium [Moles/Vol] 3.2 mmol/L Low 3.5-5.1 [facility] Comment on above: Performed By: #### L 500.3400 #### [facility] [address] [place], [address] Sodium [Moles/Vol] 143 mmol/L Normal 136-145 [facility] Comment on above: Performed By: #### L 500.3400 #### [facility] [address] [place], [address] Urea nitrogen [Mass/Vol] 42 mg/dL High 7-18 [facility] Comment on above: Performed By: #### L 500.3400 #### [facility] [address] [place], [address] Bilirubin directOrdered By: Huan Lomas on 06-06-2024 Bilirubin.direct [Mass/Vol] 0.17 mg/dL 0.00-0.3 0 [facility] Brain/Head without Contrasto n 06-06-2024 Brain/Head without Contrast [facility] Imaging Services [address] [place] [address] Brain/Head without Contrast MR#: [id number] Acct: [id number] Name: DICK ARTIS Rep #: [id number] : 1935 F [id number] From: Pedro kevin DO PCP: WILMER Maynard Status: REG ER Study: Brain/Head without Contrast Date of Exam: 05/19 Exam# [id number] Ordering Dr: Huan Lomas [place] [id number] EXAM: CT HEAD WITHOUT INTRAVENOUS CONTRAST CLINICAL INDICATION: Auditory hallucinations x 2-week, no history of ps -- Psychosis or dementia TECHNIQUE: Multiple axial images were obtained of the head without intravenous contrast. This CT exam was performed using one or more of the following dose reduction techniques: automated exposure control, adjustment of the mA and/or kV according to patient size, and/or use of iterative reconstruction technique. COMPARISON: No relevant prior studies available. FINDINGS: BRAIN AND EXTRA-AXIAL SPACES: There is non-specific periventricular hypoattenuation which is most commonly related to chronic microvascular ischemic disease in a patient of this age. There is no mass, mass-effect, or shift of the midline structures. No evidence of acute infarct or acute intracranial hemorrhage. There is no evidence of pathologic extra-axial fluid. There is no hydrocephalus. Patent basal cisterns. BONES/JOINTS: No significant abnormality. No discrete lytic or blastic abnormalities. VASCULATURE: Vascular calcifications. SINUSES: No significant findings. MASTOID AIR CELLS: No significant effusion. ORBITS: Bilateral ocular lens extraction presumptively for the treatment of cataracts. Otherwise, no acute orbital pathology. CT/Brain/Head without Contrast IMPRESSION: Chronic ischemic changes. No evidence of acute intracranial pathology. Electronically Signed: Pedro Diaz DO at 20:44 EST , CC: WILMER Suárez; Dr. Huan Lomas MD 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: Signed Normal [facility] CBC W/Diff, Automatedon 05-19 Absolute Lymph 1.38 X10 3/uL Normal 0.83-4.51 [facility] Comment on above: Performed By: #### L 500.3400 #### [facility] [address] [place], [address] Absolute Neut 4.1 X10 3/uL Normal 2.0-7.7 [facility] Comment on above: Performed By: #### L 500.3400 #### [facility] [address] [place], [address] Basophils/100 WBC (Bld) 0.5 % Normal 0-[address] [facility] Comment on above: Performed By: #### L 500.3400 #### [facility] [address] [place], [address] Eosinophils/100 WBC (Bld) 3.6 % Normal 0-5 [facility] Comment on above: Performed By: #### L 500.3400 #### [facility] [address] [place], [address] Erythrocyte distribution width (RBC) [Ratio] 13.3 % Normal 11.6-14.6 [facility] Comment on above: Performed By: #### L 500.3400 #### [facility] [address] [place], [address] Hematocrit (Bld) [Volume fraction] 32.7 % Low 37-47 [facility] Comment on above: Performed By: #### L 500.3400 #### [facility] [address] [place], [address] Hemoglobin (Bld) [Mass/Vol] 10.9 g/dL Low 12.0-15. 0 [facility] Comment on above: Performed By: #### L 500.3400 #### [facility] [address] [place], [address] IG% 0.300 Normal 0.0-0.9 [facility] Comment on above: Result Comment: IG% - Immature Granulocytes (promyelocytes, myelocytes and metamyelocytes) > 1% indicates that a LEFT SHIFT is Present. Performed By: #### L 500.3400 #### [facility] [address] [place], [address] Lymphocytes/100 WBC (Bld) 21.4 % Normal 19-41 [facility] Comment on above: Performed By: #### L 500.3400 #### [facility] [address] [place], [address] MCH (RBC) [Entitic mass] 31.9 pg Normal 27.0-32.0 [facility] Comment on above: Performed By: #### L 500.3400 #### [facility] [address] [place], [address] MCHC (RBC) [Mass/Vol] 33.3 g/dL Normal 32-36 [facility] Comment on above: Performed By: #### L 500.3400 #### [facility] [address] [place], [address] MCV (RBC) [Entitic vol] 95.6 fL Normal 81-99 [facility] Comment on above: Performed By: #### L 500.3400 #### [facility] [address] [place], [address] Monocytes/100 WBC (Bld) 10.6 % High 0-10 [facility] Comment on above: Performed By: #### L 500.3400 #### [facility] [address] [place], [address] Neutrophils/100 WBC (Bld) 63.6 % Normal 47-70 [facility] Comment on above: Performed By: #### L 500.3400 #### [facility] [address] [place], [address] Nucleated RBC (Bld) [#/Vol] 0 10*3/uL Normal 0-5 [facility] Comment on above: Performed By: #### L 500.3400 #### [facility] [address] [place], [address] Platelet mean volume (Bld) [Entitic vol] 10.4 fL Normal 6.2-12.0 [facility] Comment on above: Performed By: #### L 500.3400 #### [facility] [address] [place], [address] Platelets (Bld) [#/Vol] 164 10*3/uL Normal 150-450 [facility] Comment on above: Performed By: #### L 500.3400 #### [facility] [address] [place], [address] RBC (Bld) [#/Vol] 3.42 10*6/uL Low 4.2-5.4 [facility] Comment on above: Performed By: #### L 500.3400 #### [facility] [address] [place], [address] RDW SD 46.8 fl High 35.1-43.9 [facility] Comment on above: Performed By: #### L 500.3400 #### [facility] [address] [place], [address] WBC (Bld) [#/Vol] 6.4 10*3/uL Normal 4.4-11.0 [facility] Comment on above: Performed By: #### L 500.3400 #### [facility] [address] [place], [address] CBC panel Auto (Bld)on 06-06 Erythrocyte distribution width (RBC) [Ratio] 13.4 % 11.5 - 15.0 % [facility] Hematocrit (Bld) [Volume fraction] 37.7 % 36.0 - 46.0 % [facility] Hemoglobin (Bld) [Mass/Vol] 12.1 g/dL 11.5 - 15.5 g/dL [facility] Interpretation and review of laboratory results Normal [facility] MCH (RBC) [Entitic mass] 30.9 pg 26. 0 - 34.0 pg [facility] MCHC (RBC) [Mass/Vol] 32.1 g/dL 30.5 - 36.0 g/dL [facility] MCV (RBC) [Entitic vol] 96.4 fL 80.0 - 100.0 fL [facility] Nucleated RBC (Bld) [#/Vol] NINF [facility] Platelet mean volume (Bld) [Entitic vol] 10.4 fL 9.0 - 12.7 fL [facility] Platelets (Bld) [#/Vol] 191 10*3/uL [facility] RBC (Bld) [#/Vol] 3.91 10*6/uL 3.90 - 5.20 m/uL [facility] WBC (Bld) [#/Vol] 7.75 10*3/uL [facility] Erythrocyte distribution width (RBC) [Ratio] 13.4 % Normal 11.5-15.0 [facility] Comment on above: Order Comment: Speci men Type: BLOOD SPECIMENOrdering Facility: [facility] Address: [address] [place] [address] Performed By: #### 5 8410-2 ####[facility] [id number] [place] [address] [place] Hematocrit (Bld) [Volume fraction] 37.7 % Normal 36.0-46.0 [facility] Comment on above: Order Comment: Speci men Type: BLOOD SPECIMENOrdering Facility: [facility] Address: [address] [place] [address] Performed By: #### 5 8410-2 ####[facility] [id number] [place] [address] [place] Hemoglobin (Bld) [Mass/Vol] 12.1 g/dL Normal 11.5-15. 5 [facility] Comment on above: Order Comment: Speci men Type: BLOOD SPECIMENOrdering Facility: [facility] Address: [address] [place] [address] Performed By: #### 5 8410-2 ####[facility]DRAGUAYNABOZOL[facility]AN [id number] [address] MCH (RBC) [Entitic mass] 30.9 pg Normal 26.0-34.0 [facility] Comment on above: Order Comment: Speci men Type: BLOOD SPECIMENOrdering Facility: [facility] Address: [address] [place] [address] Performed By: #### 5 8410-2 ####[facility] [id number] [address] [place] MCHC (RBC) [Mass/Vol] 32.1 g/dL Normal 30.5-36.0 [facility] Comment on above: Order Comment: Speci men Type: BLOOD SPECIMENOrdering Facility: [facility] Address: [address] [place] [address] Performed By: #### 5 8410-2 ####[facility]ITAL[facility] [id number] [address] [place] MCV (RBC) [Entitic vol] 96.4 fL Normal 80.0-100.0 [facility] Comment on above: Order Comment: Speci men Type: BLOOD SPECIMENOrdering Facility: [facility] Address: [address] [place] [address] Performed By: #### 5 8410-2 ####[facility] HOSPITALNCLIA [id number] [address] [place] Nucleated RBC (Bld) [#/Vol] 10*3/uL Normal <0.01 [facility] Comment on above: Order Comment: Speci men Type: BLOOD SPECIMENOrdering Facility: [facility] Address: [address] [place] [address] Performed By: #### 5 8410-2 ####[facility] SANDRAWNCLIA [id number] [place] [address] [place] Platelet mean volume (Bld) [Entitic vol] 10.4 fL Normal 9.0-12.7 [facility] Comment on above: Order Comment: Speci men Type: BLOOD SPECIMENOrdering Facility: [facility] Address: [address] [place] [address] Performed By: #### 5 8410-2 ####[facility]ALTHLIA [id number] [place] [address] [place] Platelets (Bld) [#/Vol] 191 10*3/uL Normal 150-400 [facility] Comment on above: Order Comment: Speci men Type: BLOOD SPECIMENOrdering Facility: [facility] Address: [address] [place] [address] Performed By: #### 5 8410-2 ####[facility] [id number] [place] [address] [place] RBC (Bld) [#/Vol] 3.91 10*6/uL Normal 3.90-5.20 [facility] Comment on above: Order Comment: Speci men Type: BLOOD SPECIMENOrdering Facility: [facility] Address: [address] [place] [address] Performed By: #### 5 8410-2 ####[facility] HEALTHLIA [id number] [place] [address] [place] WBC (Bld) [#/Vol] 7.75 10*3/uL Normal 3.70-11.00 [facility] Comment on above: Order Comment: Speci men Type: BLOOD SPECIMENOrdering Facility: [facility] Address: [address] [place] [address] Performed By: #### 5 8410-2 ####[facility]ALTHLIA [id number] [address] OF [facility] CNPN Telephone (INTMWS) DICK ARTIS ([id number]) 1935 F Date Time Provider Department 06/06/24 MADY DUNN INTMWS During your visit today, we recorded the following information about you: Aiyana Dumont LPN 06/06/2024 4:17 PM Signed Patient?s identity has been confirmed by name and birthdate: Yes Call received from Isly at [facility] lab at 4:13 PM to report a critical value for Magnesium with a result of 0.7. Dr Dunn was notified of the result at 4:16 PM. SAMI Craig Rosa, APRN.YARD CRANE OPERATOR 06/06/2024 4:34 PM Signed Her calcium is low too (ionized is pending), I'm concerned that if we try and treat with oral magnesium her levels won't come up quick enough. Given the low mag and low calcium she should go to ER. Diann Nascimento LPN 06/06/2024 4:47 PM Signed Patient and daughter Alina aware of lab levels and agreed to go to ER. Resulted labs and this encounter faxed to [facility] ER for reference. Guanakito Bnada MD 06/06/2024 7:31 PM Signed Called transmission system operator that her calcium and ionized are critically low as well. Already sent to er for same Allergies As of Date: 06/06/2024 Noted Allergy Reaction AMLODIPINE 02/16/2016 7 - Swelling Comments: Lower leg edema. ASPIRIN 05/19/2005 16 - Unknown LISINOPRIL 09/06/2011 3 - Cough REQUIP (ROPINIROLE) 09/26/2007 14 - Other: See Comments Comments: Very anxious Date Reviewed: 04/25/2024 Reviewed by: Eboni Cooley RN - Fully Assessed Reason for Visit: Critical Results [1705] Prescriptions as of 06/06/2024 - pramipexole (MIRAPEX) 1.5 mg tablet Take 1 tablet by mouth daily at bedtime. - spironolactone (ALDACTONE) 25 mg tablet Take 1 tablet by mouth once daily. - zolpidem (AMBIEN) 10 mg Take 1 tablet by mouth at bedtime as needed for up to 180 days. - DULoxetine (CYMBALTA) 60 mg capsule Take 1 capsule by mouth once daily. - furosemide (LASIX) 40 mg tablet Take 1 tablet by mouth two times a day. - potassium chloride 20 mEq/15 mL solution Take 15 mL by mouth once daily. - pantoprazole DR (PROTONIX) 40 mg tablet Take 1 tablet by mouth once daily. - carvedilol (COREG) 25 mg tablet Take 1 tablet by mouth two times a day with meals. - iron polysaccharide complex (FERREX-150) 150 mg iron capsule Take 1 capsule by mouth once daily. - Compression Socks, Medium misc 2 Each once daily. Or size to fit. 10-20 mmHg. On in a.m., off in evening. - arformoterol (BROVANA) 15 mcg/2 mL nebulizer solution Inhale 2 mL as instructed every 12 hours. - OXYGEN, HOME THERAPY, 3 L/min by Nasal Cannula route as directed. - acetaminophen (TYLENOL) 500 mg tablet Take 1,000 mg by mouth every 6 hours as needed for pain (EVERY 6 HOURS NEEDED FOR PAIN). - albuterol HFA (VENTOLIN HFA) 90 mcg/actuation inhaler Inhale 2 Puffs as instructed every 4 hours as needed for wheezing/shortness of breath. 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] 05/24/2008 HTN (hypertension), benign [I10] 08/12/2009 Hypokalemia [E87.6] 08/12/2009 COPD (chronic obstructive pulmonary disease) [J*08/24/2010 S/P unilateral salpingo-oophorectomy [Z90.721] 02/18/2011 S/P WILFREDO (total abdominal hysterectomy) [Z90.710]02/18/2011 Hyperlipidemia [E78.5] 04/21/2011 Hypertension [I10] 04/21/2011 Vitamin D deficiency [E55.9] 03/06/2012 Nonspecific abnormal finding in stool contents *03/31/2012 02/08/2024 Acute gastritis without mention of hemorrhage [*03/31/2012 02/08/2024 Calculi, ureter [N20.1] 06/02/2012 HTN (hypertension) [I10] 12/11/2014 04/07/2015 Essential hypertension [I10] 04/07/2015 Mixed simple and mucopurulent chronic bronchiti*01/10/2016 Mixed hyperlipidemia [E78.2] 01/10/2016 Herpes zoster without complication [B02.9] 02/28/2016 02/08/2024 Bifascicular block [I45.2] 10/11/2016 Obesity, Class I, BMI 30-34.9 [E66.811] 07/30/2018 Stage 3b chronic kidney disease (HCC) [N18.32] 07/30/2018 TIA (transient ischemic attack) [G45.9] 05/26/2020 Carotid artery stenosis [I65.29] 01/23/2021 PAD (peripheral artery disease) (HCC) [I73.9] 11/11/2021 Chronic bilateral thoracic back pain [M54.6, G8*04/04/2023 Lumbar pain [M54.50] 04/04/2023 Osteopenia of lumbar spine [M85.88] 05/23/2023 Type 2 diabetes mellitus with hyperglycemia, wi*10/19/2023 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 Normal [facility] Calcium ionizedOrdered By: Valerie Lomas on 06-06-2024 Ionized Calcium 0.87 mmol/L Low 1.09-1.30 [facility] Calcium.ionized [Moles/Vol]o n 06-06-2024 Calcium.ionized (Bld) [Mass/Vol] 0.83 mmol/L Low 1.08-1.30 [facility] Comment on above: Order Comment: Shawnee welch Type: BLOOD SPECIMENOrdering Facility: [facility] Address: [address] [place] [address] Performed By: #### 1 995-0 ####[facility] LABIA [id number] [place] [address] [place] Calcium.ionized adjusted to pH 7.4 (Bld) [Moles/Vol] 0.85 mmol/L Low 1.08-1.30 [facility] Comment on above: Order Comment: Shawnee welch Type: BLOOD SPECIMENOrdering Facility: [facility] Address: [address] [place] [address] Performed By: #### 1 995-0 ####[facility] LABCLIA [id number] [place] [address] [place] Comprehensive metabolic 2000 panelOrdered By: Halina Portillo on 06-06-2024 Albumin [Mass/Vol] 4.4 g/dL 3.9 - 4.9 g/dL [facility] ALP [Catalytic activity/Vol] 112 U/L 34 - 123 U/L [facility] ALT [Catalytic activity/Vol] 11 U/L 7 - 38 U/L [facility] Anion gap [Moles/Vol] 15 mmol/L 8 - 15 mmol/L [facility] AST [Catalytic activity/Vol] 22 U/L 13 - 35 U/L [facility] Bilirubin [Mass/Vol] 0.5 mg/dL 0.2 - 1 .3 mg/dL [facility] Calcium [Mass/Vol] 7.4 mg/dL Low 8.5 - 10. 2 mg/dL [facility] Chloride [Moles/Vol] 93 mmol/L Low 98 - 10 7 mmol/L [facility] CO2 [Moles/Vol] 32 mmol/L High 22 - 30 mmol/L [facility] Creatinine [Mass/Vol] 1.52 mg/dL High 0.58 - 0.96 mg/dL [facility] GFR/1.73 sq M.predicted among non-blacks MDRD (S/P/Bld) [Vol rate/Area] 33 mL/min/{1.73_m2} Low - PINF Cl [facility] Comment on above: Estimated Glomerular Filtration Rate (eGFR) is calculated using the 2020 CKD-EPI creatinine equation. This equation utilizes serum creatinine, sex, and age as parameters. The creatinine assay has traceable calibration to isotope dilution-mass spectrometry. Refer to KDIGO guidelines for clinical interpretation. In patients with unstable renal function, e.g. those with acute kidney injury, the eGFR may not accurately reflect actual GFR. Glucose [Mass/Vol] 118 mg/dL High 74 - 99 mg/dL [facility] Comment on above: The [place] Diabete s Association (ADA) provides guidance for cutoff values for fasting glucose and random glucose. The ADA defines fasting as no caloric intake for at least 8 hours. Fasting plasma glucose results between 100 to 125 mg/dL indicate increased risk for diabetes (prediabetes). Fasting plasma glucose results greater than or equal to 126 mg/dL meet the criteria for diagnosis of diabetes. In the absence of unequivocal hyperglycemia, results should be confirmed by repeat testing. In a patient with classic symptoms of hyperglycemia or hyperglycemic crisis, random plasma glucose results greater than or equal to 200 mg/dL meet the criteria for diagnosis of diabetes. Reference: Standards of Medical Care in Diabetes 2016, [place] Diabetes Association. Diabetes Care. 2016.39(Suppl 1). Interpretation and review of laboratory results Abnormal [facility] Potassium [Moles/Vol] 3.8 mmol/L 3.7 - 5.1 mmol/L [facility] Protein [Mass/Vol] 7.5 g/dL 6.3 - 8.0 g/dL [facility] Sodium [Moles/Vol] 140 mmol/L 136 - 144 mmol/L [facility] Urea nitrogen [Mass/Vol] 42 mg/dL High 7 - 21 mg/dL [facility] Comprehensive metabolic 2000 panelon 11-20-2024 Albumin [Mass/Vol] 4.4 g/dL Normal 3.9-4.9 [facility] Comment on above: Order Comment: Speci men Type: BLOOD SPECIMENOrdering Facility: [facility] Address: [address] [place] [address] Performed By: #### 1 9123-9, 97626-1 ####[facility] ERWNCLIA [id number] [place] [address] [place] ALP [Catalytic activity/Vol] 112 U/L Normal 34-123 [facility] Comment on above: Order Comment: Speci men Type: BLOOD SPECIMENOrdering Facility: [facility] Address: [address] [place] [address] Performed By: #### 1 9123-9, 42855-7 ####[facility]ITALNCBE[facility] [id number] [place] [address] [place] ALT [Catalytic activity/Vol] 11 U/L Normal 7-38 [facility] Comment on above: Order Comment: Speci men Type: BLOOD SPECIMENOrdering Facility: [facility] Address: [address] [place] [address] Performed By: #### 1 9123-9, ####[facility] [id number] [place] [address] [place] Anion gap [Moles/Vol] 15 mmol/L Normal 8-15 [facility] Comment on above: Order Comment: Speci men Type: BLOOD SPECIMENOrdering Facility: [facility] Address: [address] [place] [address] Performed By: #### 1 9123-9, ####[facility] HOSPITALNCA [id number] [place] [address] [place] AST [Catalytic activity/Vol] 22 U/L Normal 13-35 [facility] Comment on above: Order Comment: Speci men Type: BLOOD SPECIMENOrdering Facility: [facility] Address: [address] [place] [address] Performed By: #### 1 9123-9, 23756-1 ####[facility] SANDRADENYS [id number] [place] [address] [place] Bilirubin [Mass/Vol] 0.5 mg/dL Normal 0.2-1.3 [facility] Comment on above: Order Comment: Speci men Type: BLOOD SPECIMENOrdering Facility: [facility] Address: [address] [place] [address] Performed By: #### 1 9123-9, 48412-8 ####[facility] SANDRADENYS [id number] [place] [address] [place] Calcium [Mass/Vol] 7.4 mg/dL Low 8.5-10.2 [facility] Comment on above: Order Comment: Speci men Type: BLOOD SPECIMENOrdering Facility: [facility] Address: [address] [place] [address] Performed By: #### 1 9123-9, 35982-7 ####[facility] HOSPITALZOLTAN [id number] [place] [address] [place] Chloride [Moles/Vol] 93 mmol/L Low 98-107 [facility] Comment on above: Order Comment: Speci men Type: BLOOD SPECIMENOrdering Facility: [facility] Address: [address] [place] [address] Performed By: #### 1 9123-9, ####[facility] HOSPITALZOLTAN [id number] [place] [address] [place] CO2 [Moles/Vol] 32 mmol/L High 22-30 [facility] Comment on above: Order Comment: Speci men Type: BLOOD SPECIMENOrdering Facility: [facility] Address: [address] [place] [address] Performed By: #### 1 9123-9, 98069-2 ####[facility] SANDRAWNCLIA [id number] [place] [address] [place] Creatinine [Mass/Vol] 1.52 mg/dL High 0.58-0.96 [facility] Comment on above: Order Comment: Shawnee welch Type: BLOOD SPECIMENOrdering Facility: [facility] Address: [address] [place] [address] Performed By: #### 1 9123-9, 81888-6 ####[facility] HOSPITALNCLIA [id number] [place] [address] [place] Creatinine and Glomerular filtration rate.predicted panel (S/P/Bld) 33 mL/min/1.73m??? Low >=60 [facility] Comment on above: Order Comment: Shawnee welch Type: BLOOD SPECIMENOrdering Facility: [facility] Address: [address] [place] [address] Result Comment: Rachelle mated Glomerular Filtration Rate (eGFR) is calculated using the 2020 CKD-EPI creatinine equation. This equation utilizes serum creatinine, sex, and age as parameters. The creatinine assay has traceable calibration to isotope dilution-mass spectrometry. Refer to KDIGO guidelines for clinical interpretation. In patients with unstable renal function, e.g. those with acute kidney injury, the eGFR may not accurately reflect actual GFR. Performed By: #### 1 9123-9, 08671-0 ####[facility] HOSPITALNCLIA [id number] [place] [address] [place] Glucose [Mass/Vol] 118 mg/dL High 74-99 [facility] Comment on above: Order Comment: Shanwee welch Type: BLOOD SPECIMENOrdering Facility: [facility] Address: [address] [place] [address] Result Comment: The [place] Diabetes Association (ADA) provides guidance for cutoff values for fasting glucose and random glucose. The ADA defines fasting as no caloric intake for at least 8 hours. Fasting plasma glucose results between 100 to 125 mg/dL indicate increased risk for diabetes (prediabetes). Fasting plasma glucose results greater than or equal to 126 mg/dL meet the criteria for diagnosis of diabetes. In the absence of unequivocal hyperglycemia, results should be confirmed by repeat testing. In a patient with classic symptoms of hyperglycemia or hyperglycemic crisis, random plasma glucose results greater than or equal to 200 mg/dL meet the criteria for diagnosis of diabetes. Reference: Standards of Medical Care in Diabetes 2016, [place] Diabetes Association. Diabetes Care. 2016.39(Suppl 1). Performed By: #### 1 9123-9, ####[facility] MILLTOWNCLIA [id number] [place] [address] [place] Potassium [Moles/Vol] 3.8 mmol/L Normal 3.7-5.1 [facility] Comment on above: Order Comment: Speci men Type: BLOOD SPECIMENOrdering Facility: [facility] Address: [address] [place] [address] Performed By: #### 1 9123-9, ####[facility]ALTHLIA [id number] [place] [address] [place] Protein [Mass/Vol] 7.5 g/dL Normal 6.3-8.0 [facility] Comment on above: Order Comment: Speci men Type: BLOOD SPECIMENOrdering Facility: [facility] Address: [address] [place] [address] Performed By: #### 1 9123-9, ####[facility] ERWNCLIA [id number] [place] [address] [place] Sodium [Moles/Vol] 140 mmol/L Normal 136-144 [facility] Comment on above: Order Comment: Speci men Type: BLOOD SPECIMENOrdering Facility: [facility] Address: [address] [place] [address] Performed By: #### 1 9123-9, ####[facility] MILLWNCLIA [id number] [place] [address] [place] Urea nitrogen [Mass/Vol] 42 mg/dL High 7-21 [facility] Comment on above: Order Comment: Speci men Type: BLOOD SPECIMENOrdering Facility: [facility] Address: [address] [place] [address] Performed By: #### 1 9123-9, 58465-7 ####[facility] [id number] [place] [id number] [place] Emergency Department Summary on 06-06-2024 Emergency Department Summary [facility] Medical Records Department [address] [place] [address] Emergency Department Summary 06/06/24 MR#: [id number] Acct: [id number] Name: DICK ARTIS Rep #: [id number] : 1935 88 From: Huan Lomas MD PCP: WILMER Maynard Status:REG ER Location: ED HPI History of Present Illness Chief Complaint: Abn Labs Detail of Chief Complaint: Patient presents because of abnormal blood work. Informant: patient and family Onset/Context/Timing Onset: Today (Blood work was performed at [facility] Context: - (Unknown, presumed gradual) Timing: Continuous (Presumed) Quality: Auditory hallucinations x 2 weeks, and abnormal electrolytes Location: Not applicable Current Severity: Severe Maximum Severity: Severe Worsened by: Unknown Relieved by: Not applicable Associated Symptoms Associated Symptoms: Only symptom is auditory hallucinations Narrative Narrative: Patient is AN 88-year-old woman. She has history of iron deficiency anemia, depression, GERD, type 2 diabetes who was seen by her doctor today for auditory hallucinations. Blood work was obtained. There was no imaging. She denies headache. She does report blurred vision bilaterally for the last several days. She states she likes to read a lot and she is having trouble seeing the words. She does not have a visual field cut. There is no problem with speech or swallowing. She denies paresthesia, anesthesia or motor weakness upper lower extremity. She denies tremors. She denies cardiac or respiratory symptoms. She denies GI symptoms. She is on spironolactone. Prior similar symptoms: No Recent Illness/Hospitalizatio n: No PFSH PFSH Medical History Wears glasses Wears dentures Rash Diabetes Arthritis Low iron Anemia High cholesterol Migraine headache Restless legs Difficulty chewing History of diverticulitis Heartburn Gastric reflux Former smoker On home oxygen therapy Shortness of breath on exertion Chronic cough History of edema History of echocardiogram History of stress test Cardiology follow-up encounter Hypertension Chronic hypoxic respiratory failure History of diabetes mellitus History of hypertension Diverticulitis History of chronic heart failure History of COPD COPD (chronic obstructive pulmonary disease) Anemia Chronic heart failure with preserved ejection fraction (HFpEF) Hyperlipidemia Right lumbar radiculopathy CKD (chronic kidney disease), stage III Hypertension Chronic kidney disease PAD (peripheral artery disease) Renal cyst History of TIA (transient ischemic attack) Bilateral carotid artery stenosis Claudication RLS (restless legs syndrome) Diverticulosis TIA (transient ischemic attack) Vertigo Leg edema Dyslipidemia Home Medications ???Medication ???Instructions ???Recorded ???Last Taken ???Type atorvastatin 40 mg tablet 40 mg PO QHS cholesterol 02/22/16 10/04/23 21:55 History clopidogrel 75 mg tablet 75 mg PO DAILY BLOOD THINNER 02/22/16 04/13/24 History albuterol sulfate 90 mcg/actuation 2 puff inhalation BID PRN 03/16/18 04/19/24 History aerosol inhaler shortness of breath or wheezing pramipexole 1.5 mg tablet 1.5 mg PO QHS restless leg syndrome 08/18/23 10/04/23 21:55 History budesonide 0.5 mg/2 mL suspension 0.25 mg inhalation BID breathing 09/09/23 10/05/23 07:00 Rx for nebulization 30 days #0 mL furosemide 40 mg tablet 40 mg PO BIDCM FLUID RETENTION 30 10/12/23 Unknown Rx days #60 tabs pantoprazole 40 mg tablet,delayed 40 mg PO BID reflux 30 days #60 10/12/23 04/19/24 Rx release tabs polysaccharide iron complex 150 mg 150 mg PO DAILY supplement 30 days 10/12/23 Unknown Rx iron capsule (Ferrex) #30 caps potassium chloride 20 mEq 20 meq PO BIDCM supplement 30 days 10/12/23 Unknown Rx tablet,extended release(part/cryst) #60 tabs Arthritis Pain Compound 3 click topical BID 5 days ##0 11/06/23 Unknown Rx acetaminophen 500 mg tablet 1,000 mg PO Q6H PRN pain 02/14/24 Unknown History arformoterol 15 mcg/2 mL solution 15 mcg inhalation BID 02/14/24 04/19/24 History for nebulization duloxetine 20 mg capsule,delayed 40 mg PO DAILY 02/14/24 04/19/24 History release spironolactone 25 mg tablet 25 mg PO QDAY 02/14/24 Unknown History zolpidem 5 mg tablet 5 mg PO QHS PRN sleep 02/14/24 Unknown History amitriptyline 10 mg tablet 10 mg PO QDAY #30 tabs 05/01/24 Unknown Rx carvedilol 12.5 mg tablet 12.5 mg PO BID 06/06/24 Unknown History nitrofurantoin 1 cap PO BID 06/06/24 Unknown History monohydrate/macrocryst als 100 mg capsule Allergy/AdvReac Type Severity Reaction Status Date / Time lisinopril Allergy edema Verified 06/06/24 18:17 aspirin AdvReac Upset Verified 06/06/24 18:17 Stomach Family History (R (more content not included)... Normal [facility] Folate SerPl-mCncon 06-06-20 Folate [Mass/Vol] 16.6 ng/mL Normal >4.7 [facility] Comment on above: Order Comment: Speci men Type: BLOOD SPECIMENOrdering Facility: [facility] Address: [address] [place] [address] Performed By: #### 2 284-8, 3016-3, 6161-8, 2572-9 ####[facility] LABCLIA [id number] [facility] [id number] [address] [place] Folates, (Folic Acid)on 05-19 FOLATES 18.80 ng/mL Normal 3.1-55.4 [facility] Comment on above: Order Comment: Has P atient had X-rays with Contrast this admission? NN Performed By: #### L 300.8520 #### [facility] [address] [facility] [place], [address] Folic acid measurementOrdere d By: Jorje Weems on 06-06-2024 Folate 18.80 ng/mL 3.1-55.4 [facility] H AND P Exam - Hospital[place] 06-06-2024 H&P Exam - Hospitalist [facility] Medical Records Department [address] [place] [address] H P Exam - Hospitalist 06/06/241951 MR#: [id number] Acct: [id number] Name: DICK ARTIS Rep #: [id number] : 1935 88 From: Jorje Hood DO PCP: WILMER Maynard Status:ADM IN Location: [place] [address] HPI - General General Date of Admission: 06/06/24 Date of Service: 06/06/24 Chief Complaint: Abnormal Labs, Diarrhea and Auditory Hallucinations x 2 Weeks. HPI Narrative DICK ARTIS, is a 88 F with a past medical history of essential hypertension; on Coreg and Spironolactone, hyperlipidemia; on atorvastatin, DM-2; of unknown control, history of chronic diastolic CHF; with preserved LVEF on Lasix plus supplemental KCl BID, former tobacco abuse (quit 2021); with subsequent COPD, chronic hypoxic respiratory failure; on 2L NC continuous, history of bilateral carotid artery stenosis with previous TIA (2018); s/p carotid angioplasty on Plavix, PAD; with claudication, CKD; stage IIIb, history of renal calculi, history of renal cyst, SOPHIE, history of diverticulitis, RLS; on pramipexole, history of depression; on amitriptyline and duloxetine, chronic insomnia; on as needed nightly Ambien, history of migraine headaches, history of severe GERD; on Protonix BID, history of thyroid surgery, history of total hysterectomy, history of basal cell carcinoma on forehead; s/p excision, history of vertigo, listed allergy to lisinopril (edema), listed allergy to aspirin (upset stomach), OA; with history of Right lumbar radiculopathy and recently diagnosed UTI with patient started on empiric Nitrofurantoin 2 days ago who presents to [facility] ER complaining of auditory hallucinations. Ms. Artis is not a fully-reliable historian at this time so information was gathered from chart, medical staff and computer. According to the records the patient was seen by one of her physicians today as an outpatient at [facility] for nonbloody diarrhea and auditory hallucinations with blood work ordered which revealed critical hypomagnesemia of 0.5 mg/dL and severe hypocalcemia of 6.8 mg/dL along with mild hypokalemia of 3.2 mmol/L resulting in her being sent to the ER for further evaluation and treatment. She also complains of blurred vision in both eyes for the last several days with patient being an avid reader at baseline but now is having trouble saying the words. She denies problems with speech, swallowing, paresthesias, tremors, seizures, headache or focal neurologic deficits. She also denies associated fever, chills, nausea, vomiting, chest pain, SOB, alcohol abuse or other recent illness. A CT scan of the abdomen and pelvis was ordered to investigate for possible signs of inflammation with diarrhea with results positive for evidence of Acute Diverticulitis along with an incidentally noted new hyperdense 4.3 cm Right Renal Mass very suspicious for malignancy with radiologist recommending follow up MRI. She was then admitted to the PCU for ongoing care for stay that is expected to extend beyond 2 midnights. [facility] Medical History Wears glasses Wears dentures Rash Diabetes Arthritis Low iron Anemia High cholesterol Migraine headache Restless legs Difficulty chewing History of diverticulitis Heartburn Gastric reflux Former smoker On home oxygen therapy Shortness of breath on exertion Chronic cough History of edema History of echocardiogram History of stress test Cardiology follow-up encounter Hypertension Chronic hypoxic respiratory failure History of diabetes mellitus History of hypertension Diverticulitis History of chronic heart failure History of COPD COPD (chronic obstructive pulmonary disease) Anemia Chronic heart failure with preserved ejection fraction (HFpEF) Hyperlipidemia Right lumbar radiculopathy CKD (chronic kidney disease), stage III Hypertension Chronic kidney disease PAD (peripheral artery disease) Renal cyst History of TIA (transient ischemic attack) Bilateral carotid artery stenosis Claudication RLS (restless legs syndrome) Diverticulosis TIA (transient ischemic attack) Vertigo Leg edema Dyslipidemia Home Medications ???Medication ???Instructions ???Recorded ???Last Taken ???Type atorvastatin 40 mg tablet 40 mg PO QHS cholesterol 02/22/16 10/04/23 21:55 History clopidogrel 75 mg tablet 75 mg PO DAILY BLOOD THINNER 02/22/16 04/13/24 History albuterol sulfate 90 mcg/actuation 2 puff inhalation BID PRN 03/16/18 04/19/24 History aerosol inhaler shortness of breath or wheezing pramipexole 1.5 mg tablet 1.5 mg PO QHS restless leg syndrome 08/18/23 10/04/23 21:55 History budesonide 0.5 mg/2 mL suspension 0.25 mg inhalation BID breathing 09/09/23 10/05/23 07:00 Rx for nebulization 30 days #0 mL (more content not included)... Normal [facility] HbA1c (Bld)on 06-06-2024 Average glucose Estimated from glycated hemoglobin (Bld) [Mass/Vol] 117 mg/dL Normal [facility] Comment on above: Order Comment: Shawnee welch Type: BLOOD SPECIMENOrdering Facility: [facility] Address: [address] [place] [address] Result Comment: eAG: (Estimated average glucose) is a calculated value from HgbA1c and is industrial relations representative of the average blood glucose level in the last 2-3 month period. Performed By: #### 5 5454-3 ####[facility] LABCLIA [id number] [place] [address] [place] HbA1c (Bld) [Mass fraction] 5.7 % High 4.3-5.6 [facility] Comment on above: Order Comment: Shawnee welch Type: BLOOD SPECIMENOrdering Facility: [facility] Address: [address] [place] [address] Result Comment: Amer [place] Diabetes Association guidelines indicate that patients with HgbA1c in the range 5.7-6.4% are at increased risk for development of diabetes, and intervention by lifestyle modification may be beneficial. HgbA1c greater or equal to 6.5% is considered diagnostic of diabetes. Performed By: #### 5 5454-3 ####[facility] LABCLIA [id number] [place] [address] [place] Hemoglobin A1con 06-06-2024 HbA1c (Bld) [Mass fraction] 5.9 % High 3.8-5.6 [facility] Comment on above: Result Comment: Norm al < 5.7 % Prediabetic 5.7 - 6.4 % Diabetic >or= 6.5 % Please note range changes. Performed By: #### L 501.5200 #### [facility] [address] [place], [address] Hemoglobin A1c percentageOrd ered By: Jorje Weems on 06-06-2024 HbA1c (Bld) [Mass fraction] 5.9 % High 3.8-5.6 [facility] Comment on above: Normal < 5.7 % Predi abetic 5.7 - 6.4 % Diabetic >or= 6.5 % Please note range changes. L501.2276on 06-06-2024 Ionized Calcium 0.87 mmol/L Low 1.09-1.30 [facility] Comment on above: Performed By: #### L 501.0376 #### [facility] [address] [place], [address] Liver Profileon 06-06-2024 ALK P 92 U/L Normal 45-117 [facility] Comment on above: Performed By: #### L 500.3400 #### [facility] [address] [place], [address] ALT [Catalytic activity/Vol] 17 U/L Normal 13-56 [facility] Comment on above: Performed By: #### L 500.3400 #### [facility] [address] [place], [address] AST [Catalytic activity/Vol] 20 U/L Normal 15-37 [facility] Comment on above: Performed By: #### L 500.3400 #### [facility] [address] [place], [address] Bilirubin [Mass/Vol] 0.60 mg/dL Normal 0.20-1.00 [facility] Comment on above: Result Comment: For patients on eltrombopag therapy, use of Dimension [place] TBIL is not recommended. Performed By: #### L 500.3400 #### [facility] [address] [place], [address] Bilirubin.direct [Mass/Vol] 0.17 mg/dL Normal 0.00-0.3 0 [facility] Comment on above: Performed By: #### L 500.3400 #### [facility] [address] [place], [address] Albumin [Mass/Vol] 3.3 g/dL Normal 3.2-5.0 [facility] Comment on above: Performed By: #### L 500.3400 #### [facility] [address] [place], [address] Globulin (S) [Mass/Vol] 3.4 g/dL Normal 2.2-4.2 [facility] Comment on above: Performed By: #### L 500.3400 #### [facility] [address] [place], [address] T PROT 6.7 g/dL Normal 6.4-8.2 [facility] Comment on above: Performed By: #### L 500.3400 #### [facility] [address] [place], [address] Magnesiumon 06-06-2024 Magnesium [Mass/Vol] 0.5 mg/dL Invalid Interpretation Code 1.6-2.6 [facility] Comment on above: Result Comment: Crit ical Result(s) Called at: 19:03:23 06/06/2024 by: DENISE ACEVEDO TO NBA NINA. Results read back by same. Performed By: #### L 500.3400 #### [facility] [address] [place], [address] Magnesium SerPl-mCncon 06-06 Magnesium [Mass/Vol] 0.7 mg/dL Low 1.7-2.3 [facility] Comment on above: Order Comment: Speci men Type: BLOOD SPECIMENOrdering Facility: [facility] Address: [address] [place], [place] [address] [address] Performed By: #### 1 9123-9, 96001-5 ####[facility] MILLTOWNCLIA [id number] [place] [address] [place] Osmolality, Serumon 06-06-20 24 OSMOLALITY,SER 328 mOsm/KG High 280-301 [facility] Comment on above: Performed By: #### L 500.3400 #### [facility] [address] [place], [address] Osmolality, serumOrdered By: Huan Lomas on 06-06-2024 Serum Osmolality 328 mOsm/KG High 280-301 [facility] PTH-Intact SerPl-ncon 05-19 Parathyrin.intact [Mass/Vol] 43 pg/mL Normal 15-65 [facility] Comment on above: Order Comment: Speci men Type: BLOOD SPECIMENOrdering Facility: [facility] Address: [address] [place], [place] [address] [address] Performed By: #### 2 284-8, 3016-3, 7361-8, 2132-9 ####[facility] LABCLIA [id number] [place] [address] [place] Serum ethanol measurementOrd ered By: Jorje Weems on 06-06-2024 Ethyl Alcohol Level < 3.0 mg/dL [facility] Comment on above: The serum:whole bloo d ethanol ratio is approximately 1.14and varies slightly with hematocrit. Medical Alcohol reference interval and critical value innon-tolerant individuals; 50 - 100 Impairment 100 Intoxication 100 - 250 Severe Poisoning 250 - 400 Deep/possible fatal coma TSH QnOrdered By: Jorje abbott on 06-06-2024 Thyroid Stimulating Hormone (TSH) 1.820 uIU/mL 0.358-3.74 0 [facility] TSH SerPl-aCncon 06-06-2024 TSH Qn 2.110 m[IU]/L Normal 0.270-4.20 0 [facility] Comment on above: Order Comment: Speci men Type: BLOOD SPECIMENOrdering Facility: [facility] Address: [address] [place], [place] [address] [address] Performed By: #### 2 284-8, 3016-3, 5991-8, 2131-9 ####[facility] LABCLIA [id number] [place] [address] [place] Thyroid Stim Hormone (TSH)on 06-06-2024 TSH 1.820 uIU/mL Normal 0.358-3.74 0 [facility] Comment on above: Order Comment: Has P atient had X-rays with Contrast this admission? NN Performed By: #### L 501.5200 #### [facility] [address] [place], [address] Vit B12 [facility] 024 Cobalamin (Vitamin B12) [Mass/Vol] 689 pg/mL Normal 232-1245 [facility] Comment on above: Order Comment: Gemmai men Type: BLOOD SPECIMENOrdering Facility: [facility] Address: [address] [place], [place] [address] [address] Performed By: #### 2 284-8, 3016-3, 1-8, 9 ####[facility] LABCLIA [id number] [place] [address] [place] Vitamin B12 measurementOrder ed By: Jorje Weems on 06-06-2024 Cobalamin (Vitamin B12) [Mass/Vol] 528 pg/mL 211-911 [facility] CNPSivan 06-05-2024 CNPN Telephone (INTMWS) DICK ARTIS ([id number]) 1935 F Date Time Provider Department 06/05/24 MADY DUNN INTMWS During your visit today, we recorded the following information about you: Dayan Ibarra LPN 06/05/2024 10:27 AM Signed Daughter Raimundo called in to let you know pt has been having hallucinations for the past 2 weeks. They thought it was from a med that was given to her by Dr. Real but is was not. Pt did stop and the hallucinations continued. They contacted Palliative Care and they are putting pt on ATB for 3 days. Palliative Care recommends pt go thru pcp and get blood work done. Daughter requesting blood work. Please advise Raimundo. SAMI Raymond Liza D, MD 06/06/2024 12:54 PM Signed Labs ordered I added urine studies. Also follow up on high Vitamin D level on last labs Dayan Ibarra LPN 06/06/2024 3:24 PM Signed Daughter notified and she saw orders on pt's MyChart and go all the labs and urine done. Dayan Ibarra LPN Allergies As of Date: 06/05/2024 Noted Allergy Reaction AMLODIPINE 02/16/2016 7 - Swelling Comments: Lower leg edema. ASPIRIN 05/19/2005 16 - Unknown LISINOPRIL 09/06/2011 3 - Cough REQUIP (ROPINIROLE) 09/26/2007 14 - Other: See Comments Comments: Very anxious Date Reviewed: 04/25/2024 Reviewed by: Eboni Cooley RN - Fully Assessed Reason for Visit: Hallucinations [225] Primary Visit Diagnosis:Hallucinatio ns [R44.3] Other Visit Diagnoses:Encounter for long-term current use of medication [Z79.899] Type 2 diabetes mellitus with chronic kidney disease, without long-term current use of insulin, unspecified CKD stage (HCC) [E11.22] Vitamin D deficiency [E55.9] Hypomagnesemia [E83.42] Stage 3b chronic kidney disease (HCC) [N18.32] Order(s):THYROID STIMULATING HORMONE [SQTSH] Order #: [id number] FUTURE COMPREHENSIVE METABOLIC PANEL [SQCMP] Order #: [id number] FUTURE HEMOGLOBIN A1C [RJDSE4H] Order #: [id number] FUTURE COMPLETE BLOOD COUNT [SQCBC] Order #: [id number] FUTURE VITAMIN D 25 HYDROXY [SQVITD] Order #: [id number] FUTURE URINALYSIS, WITH MICROSCOPIC [SQUAWMIC] Order #: [id number] FUTURE URINE CULTURE [SQURCUL] Order #: [id number] FUTURE MAGNESIUM [SQMG1] Order #: [id number] FUTURE VITAMIN B12 [SQB12] Order #: [id number] FUTURE FOLATE, SERUM [SQSERFOL] Order #: [id number] FUTURE Prescriptions as of 06/06/2024 - pramipexole (MIRAPEX) 1.5 mg tablet Take 1 tablet by mouth daily at bedtime. - spironolactone (ALDACTONE) 25 mg tablet Take 1 tablet by mouth once daily. - zolpidem (AMBIEN) 10 mg Take 1 tablet by mouth at bedtime as needed for up to 180 days. - DULoxetine (CYMBALTA) 60 mg capsule Take 1 capsule by mouth once daily. - furosemide (LASIX) 40 mg tablet Take 1 tablet by mouth two times a day. - potassium chloride 20 mEq/15 mL solution Take 15 mL by mouth once daily. - pantoprazole DR (PROTONIX) 40 mg tablet Take 1 tablet by mouth once daily. - carvedilol (COREG) 25 mg tablet Take 1 tablet by mouth two times a day with meals. - iron polysaccharide complex (FERREX-150) 150 mg iron capsule Take 1 capsule by mouth once daily. - Compression Socks, Medium misc 2 Each once daily. Or size to fit. 10-20 mmHg. On in a.m., off in evening. - arformoterol (BROVANA) 15 mcg/2 mL nebulizer solution Inhale 2 mL as instructed every 12 hours. - OXYGEN, HOME THERAPY, 3 L/min by Nasal Cannula route as directed. - acetaminophen (TYLENOL) 500 mg tablet Take 1,000 mg by mouth every 6 hours as needed for pain (EVERY 6 HOURS NEEDED FOR PAIN). - albuterol HFA (VENTOLIN HFA) 90 mcg/actuation inhaler Inhale 2 Puffs as instructed every 4 hours as needed for wheezing/shortness of breath. 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 Normal [facility] Gastroenterology Visit Repor ton 05-01-2024 Gastroenterology Visit Report [facility] [address] [place] [address] OFFICE VISIT Date of Service: 05/01/24 MR#: [id number] Acct: [id number] Name: DICK ARTIS Rep #: [id number] : 1935 Provider: INDIRA Cox Age/Sex: 88/F [place] [facility] Status: Signed Intake Vital Signs 04/19/24 07:47 Height 5 ft 2 in Intake Visit Reasons: FOLLOW UP Chief Complaint: having trouble swallowing Director Case Management Required: No Accompanied by: Daughter Is patient in pain?: No Allergies lisinopril Allergy (Verified 04/19/24 07:44) edema aspirin Adverse Reaction (Verified 04/19/24 07:44) Upset Stomach Is last menstrual period known: No Post menopausal: No Patient : No Have you fallen in the past year?: No Nurse's Note: OV 05.01.24 Pt here because she is having trouble swallowing. Reports that after taking a few bites of food she will start choking and then vomit her food and drink. Pt has a formed BM every day. Denied blood in stool. EGD done 04.19.24. Takes pantoprazole daily. [facility] Medical History Wears glasses Wears dentures Rash Diabetes Arthritis Low iron Anemia High cholesterol Migraine headache Restless legs Difficulty chewing History of diverticulitis Heartburn Gastric reflux Former smoker On home oxygen therapy Shortness of breath on exertion Chronic cough History of edema History of echocardiogram History of stress test Cardiology follow-up encounter Hypertension Chronic hypoxic respiratory failure History of diabetes mellitus History of hypertension Diverticulitis History of chronic heart failure History of COPD COPD (chronic obstructive pulmonary disease) Anemia Chronic heart failure with preserved ejection fraction (HFpEF) Hyperlipidemia Right lumbar radiculopathy CKD (chronic kidney disease), stage III Hypertension Chronic kidney disease PAD (peripheral artery disease) Renal cyst History of TIA (transient ischemic attack) Bilateral carotid artery stenosis Claudication RLS (restless legs syndrome) Diverticulosis TIA (transient ischemic attack) Vertigo Leg edema Dyslipidemia Surgical History History of thyroid surgery History of carotid angioplasty History of kidney stones History of basal cell carcinoma excision History of total hysterectomy Family History Mother Heart disease Social History household members: none housing: house Smoking Status: Former smoker how long ago did patient quit smokin years ago alcohol intake: current alcohol intake frequency: holidays/special occasions only details: rare substance use type: does not use caffeine: Yes Type: coffee Number of servings: 1 HPI HPI Chief Complaint: having trouble swallowing Details: DICK ARTIS, is a 88 F who presents to the office today for f/u. She was hospitalized in August of 2023 for NSTEMI and COPD exacerbation. She was found to have down trending hemoglobin and underwent EGD. EGD 09.16.23; - LA Grade D erosive esophagitis with bleeding. Treated with a heater probe. - Non-bleeding gastric ulcers with no stigmata of bleeding. Biopsied. - Acute duodenitis. Biopsied OV 03.22.24 ; Patient has been doing well from GI standpoint up until recently when she had an episode of choking. She was eating a chicken wing when she stated to choke on it. She presented to the ED for this and was ultimately sent home after normal chest x-ray. After being sent home she had numerous episodes of vomiting which subsided after a few days. Since then she has had no further problems besides some break through heartburn. She continues to take Pantoprazole daily. EGD 04.19.24; - Abnormal esophageal motility, consistent with aperistalsis. Dilated. - Small hiatal hernia. - Gastric mucosal variant. Biopsied. - A few duodenal polyps. Resected and retrieved. OV 24; Pt continues to have episodes of choking and vomiting. Since her EGD she has had two episodes of choking. She has not been able to identify foods that trigger it but it is sometimes denise t. She has had two episodes of heartburn since her EGD. She has been taking pantopraozle 40 mg just once a day. ROS Const Constitutional: No anorexia, fatigue, fever(s), weight change or sleep problems Eyes Eyes: No change in vision ENT ENT: Positive for difficulty swallowing; No abnormal hearing, mouth lesions, tongue swelling or throat swelling Resp Respiratory: No cough or shortness of breath Cardio Cardiology: No chest pain at rest, chest pain with exertion, shortness of breath or dyspnea on exertion Gastro GI: Positive for hear (more content not included)... [facility] Office Visit (PULMWS ) DICK ARTIS ([id number]) 1935 F Date Time Provider Department 04/25/24 2:00 PM ANA HERNANDEZ PULCATARINO During your visit today, we recorded the following information about you: Pulse Respiration Blood pressure 75/minute 20/minute 150/72 Ana Hernandez, PARuslanC 04/25/2024 4:33 PM Signed Patient: Dick Artis PCP: Mady Dunn MD CC: follow up HPI: Dick Artis 88 year old female former [id number] smoker, quitting in 2017 with PMH significant for HTN, TIA, PAD, CKD, moderately severe COPD, renal mass, and abnormal CT of the chest. Chest CT with dense atelectasis in the right lung without obvious endobronchial abnormality and small 4 to 5 mm right pulmonary nodule. Last office visit 12/20/2023. Current maintenance therapy Brovana, Budesonide and as needed Albuterol. Today, patient denies significant cough, sputum production, hemoptysis, or wheezing. No dyspnea at rest. Exertional dyspnea with walking up inclines. Patient states she walks to her mailbox and back without any issues. No fevers, chills, or night sweats. No unintended weight loss. No lower extremity edema. No GERD/heartburn. No recent hospitalizations or ED visits or upper respiratory infections. Currently wearing 2L supplemental oxygen, 4L at night. DME: [employer]. PAST MEDICAL HISTORY Diagnosis Date Basal cell carcinoma Carotid stenosis CEA left Chronic hypoxemic respiratory failure (HCC) CKD (chronic kidney disease) stage 3, GFR 30-59 ml/min ([facility]) 07/30/2018 COPD (chronic obstructive pulmonary disease) ([facility]) Diastolic heart failure (HCC) Diverticulosis of colon (without mention of hemorrhage) Diverticulosis Hypertension Rolly Smith MD NSTEMI (non-ST elevated myocardial infarction) ([facility]) Osteoporosis, unspecified Personal history of colonic polyps Colon polyps Restless legs syndrome (RLS) Spinal stenosis TIA (transient ischemic attack) 2008 Plavix Type 2 diabetes mellitus with hyperglycemia, without long-term current use of insulin ([facility]) 10/19/2023 Allergies: Amlodipine Swelling Comment:Lower leg edema. Aspirin Unknown Lisinopril Cough Requip [Ropinirole] Other: See Comments Comment:Very anxious spironolactone (ALDACTONE) 25 mg tablet Take 1 tablet by mouth once daily. zolpidem (AMBIEN) 10 mg Take 1 tablet by mouth at bedtime as needed for up to 180 days. DULoxetine (CYMBALTA) 60 mg capsule Take 1 capsule by mouth once daily. furosemide (LASIX) 40 mg tablet Take 1 tablet by mouth two times a day. potassium chloride 20 mEq/15 mL solution Take 15 mL by mouth once daily. pantoprazole DR (PROTONIX) 40 mg tablet Take 1 tablet by mouth once daily. carvedilol (COREG) 25 mg tablet Take 1 tablet by mouth two times a day with meals. pramipexole (MIRAPEX) 1.5 mg tablet Take 1 tablet by mouth daily at bedtime. iron polysaccharide complex (FERREX-150) 150 mg iron capsule Take 1 capsule by mouth once daily. Compression Socks, Medium misc 2 Each once daily. Or size to fit. 10-20 mmHg. On in a.m., off in evening. arformoterol (BROVANA) 15 mcg/2 mL nebulizer solution Inhale 2 mL as instructed every 12 hours. OXYGEN, HOME THERAPY, 3 L/min by Nasal Cannula route as directed. acetaminophen (TYLENOL) 500 mg tablet Take 1,000 mg by mouth every 6 hours as needed for pain (EVERY 6 HOURS NEEDED FOR PAIN). albuterol HFA (VENTOLIN HFA) 90 mcg/actuation inhaler Inhale 2 Puffs as instructed every 4 hours as needed for wheezing/shortness of breath. May take 2 puffs prior to exercise budesonide (PULMICORT) 0.5 mg/2 mL nebulizer solution USE 1 VIAL IN NEBULIZER EVERY 12 HOURS OVER 5-15 MINUTES atorvastatin (LIPITOR) 40 mg tablet take 1 tablet daily (Patient taking differently: Take 40 mg by mouth daily at bedtime.) clopidogrel (PLAVIX) 75 mg tablet take 1 tablet daily Social History Tobacco Use Smoking status: Former Current packs/day: 0.00 Average packs/day: 1 pack/day for 53.1 years (53.1 ttl pk-yrs) Types: Cigarettes Start date: 08/11/1963 Quit date: 10/04/2016 Years since quittin.5 Smokeless tobacco: Never Tobacco comments: 10-20 year period in 30-40s when quit. Vaping Use Vaping status: Never Used Substance Use Topics Alcohol use: Not Currently Comment: very seldom Drug use: Never Family History Problem Relation Age of Onset Diabetes Mother Heart Mother None Father hx unknown Heart Brother Diabetes Brother Cancer Brother Lung, 1/2 brother. Asthma No Family History COPD No Family History Emphysema No Family History PAST SURGICAL HISTORY Procedure Laterality Date CAROTID ENDARTERECTOMY Left 01/23/2021 COLONOSCOPY FLX DX W/COLLJ SPEC WHEN PFRMD 03/25/2004 Colonoscopy CYSTOSCOPY 06/02/2012 left ureteral calculi ESOPHAGOGASTRODUODENOS COPY TRANSORAL DIAGNOSTIC 03/25/2004 EGD PAST SURGICAL HISTORY OF 0 (more content not included)... Normal [facility] OXIMETRY WITH AMBULATIONon 1 Heaven Sanchez RPF T 04/25/2024 1:51 PM RESPIRATORY THERAPY OXIMETRY WITH AMBULATION Oximetry with Ambulation Test for This Encounter O2 Device O2 Adapter NC O2 Flow SpO2% HR Activity Ft Walked (ft) Time (min) Avg Speed (MPH) R/A 88 84 Resting NC 2 94 82 Resting NC 2 90 93 Walking, usual pace 360 3 1.36 General Information Pulse Oximetry Site Total Time Spent Walking Assistance/O2 Supply Carrier L Middle Finger 30 Wheeled Walker NAME: CHANTAL Hollins PATIENT NAME: Dick Artis DATE: April 25, 2024 TIME: 1:51 PM Comment: patient ambulated with own pulse dose oxygen [facility] EGD Reporton 04-19-2024 EGD Report [facility] Medical Records Department [address] [place] [address] EGD Report MR#: [id number] Acct: [id number] Name: DICK ARTIS Rep #: [id number] : 1935 88 From: Teodoro Friend PCP: WILMER Maynard Status:[facility] Patient Name: Dick Artis Procedure Date: 04/19/2024 8:39 AM Date of : 1935 Age: 88 Procedure: Upper GI endoscopy Indications: Epigastric abdominal pain, Dysphagia, Suspected esophageal reflux Providers: Teodoro Real DO Referring MD: Rosaura Suárez Special Education Educational Assistant, Special Education Educational Assistant-c Medicines: Monitored Anesthesia Care Patient Profile: This is an 88 year old female. Refer to note in patient chart for documentation of history and physical. Patient has symptoms of dysphagia with both liquids and solids, chronic dyspepsia and acute nausea. Complications: No immediate complications. Procedure: Pre-Anesthesia Assessment: - Prior to the procedure, a History and Physical was performed, and patient medications and allergies were reviewed. The patient is competent. The risks and benefits of the procedure and the sedation options and risks were discussed with the patient. All questions were answered and informed consent was obtained. Patient identification and proposed procedure were verified by the physician in the pre-procedure area. Mental Status Examination: alert and oriented. Airway Examination: normal oropharyngeal airway and neck mobility. Respiratory Examination: clear to auscultation. CV Examination: normal. Prophylactic Antibiotics: The patient does not require prophylactic antibiotics. Prior Anticoagulants: The patient has taken no anticoagulant or antiplatelet agents. ASA Grade Assessment: III - A patient with severe systemic disease. After reviewing the risks and benefits, the patient was deemed in satisfactory condition to undergo the procedure. The anesthesia plan was to use monitored anesthesia care (MAC). Immediately prior to administration of medications, the patient was re-assessed for adequacy to receive sedatives. The heart rate, respiratory rate, oxygen saturations, blood pressure, adequacy of pulmonary ventilation, and response to care were monitored throughout the procedure. The physical status of the patient was re-assessed after the procedure. After obtaining informed consent, the endoscope was passed under direct vision. Throughout the procedure, the patient's blood pressure, pulse, and oxygen saturations were monitored continuously. The Endoscope was introduced through the mouth, and advanced to the second part of duodenum. The upper GI endoscopy was accomplished without difficulty. The patient tolerated the procedure well. Scope In: 8:51:33 AM Scope Out: 8:57:42 AM Total Procedure Duration Time 0 hours 6 minutes 9 seconds Findings: Abnormal motility was noted at the cricopharyngeus. The cricopharyngeus was abnormal. There are extra peristaltic waves in the esophageal body. The distal esophagus/lower esophageal sphincter is spastic, but gives up passage to the endoscope. Tertiary peristaltic waves are noted. A guidewire was placed and the scope was withdrawn. Dilation was performed with a Savary dilator with no resistance at 54 Fr. The dilation site was examined and showed moderate improvement in luminal narrowing. A small hiatal hernia was present. Diffuse mild mucosal variance characterized by atrophy was found in the entire examined stomach. Biopsies for histology were taken with a cold forceps for evaluation of celiac disease. A few 5 mm [Pedicle] polyps with no bleeding were found in the duodenal bulb. The polyp was removed with a jumbo cold forceps. Resection and retrieval were complete. Impression: - Abnormal esophageal motility, consistent with aperistalsis. Dilated. - Small hiatal hernia. - Gastric mucosal variant. Biopsied. - A few duodenal polyps. Resected and retrieved. Recommendation: - Await pathology results. - Continue present medications. Procedure Code(s): --- Professional --- 06835, Esophagogastroduodenos copy, flexible, transoral; with insertion of guide wire followed by passage of dilator(s) through esophagus over guide wire 90212, 59,51, Esophagogastroduodenos copy, flexible, transoral; with biopsy, single or multiple CPT copyright 2021 [employer]. All rights reserved. The codes documented in this report are preliminary and upon mixing picker tender review may be revised to meet current compliance requirements. Teodoro Real DO 04/19/2024 9:06:51 AM This report has been signed electronically. Number of Addenda: 0 Note Initiated On: 04/19/2024 8:39 AM 04/19/24905 Date Teodoro Díaz Signature: Date (if indicated) CC: WILMER Hill (more content not included)... Normal [facility] MR/POSTOP.Zoila 04-19-2024 MR/POSTOP.[facility] Medical Records Department [address] [place] [address] Anesthesia Postop Eval I 04/19/24909 MR#: [id number] Acct: [id number] Name: DICK ARTIS Rep #: [id number] : 1935 88 From: Juan Carlos Grant PCP: WILMER Maynard Status:REG SDC Y Race: C Location: [place] [address] Anesthesia: Postop Eval I Current Vital Signs Temperature: 98 F Pulse Rate: 71 Blood Pressure: 108/38 Respiratory Rate: 16 Pulse Ox: 97 Oxygen Delivery Method: Nasal Cannula Oxygen Flow Rate (L/min): 2 Assessment Airway patent: Yes Spontaneous unlabored respirations: Yes Mental status: Awake and Calm nausea: No Vomiting: No Anesthesia Complication: No Fluid Hydration Crystalloid volume administer (ml): 400 Total IV fluid infused: 400 Progress Note Anesthesia document: Postop Eval 1 completed: Yes 04/19/24910 Date Juan Carlos Lombardo Signature: Date CC: Signed Normal [facility] MR/BNXNOTOP0no 04-19-2024 [facility] Medical Records Department [address] [place] [address] Anesthesia Postop Eval II 04/19/24921 MR#: [id number] Acct: [id number] Name: DICK ARTIS Rep #: [id number] : 1935 88 From: Vin Farias MD PCP: WILMER Maynard Status:REG SDC Y Race: C Location: [place] [address] Anesthesia Postop Eval I Sum Postop Eval Completion status Anesthesia document: Postop Eval 1 completed: Yes Anesthesia Postop Eval I Summary Anesthesia Postop Eval I Summary: Anesthesia Postop Eval I: Assessment Summary Airway patent Yes 04/19/24 09:11 [email or web address] Spontaneous unlabored Yes 04/19/24 09:11 [email or web address] respirations Mental status Awake,Calm 04/19/24 09:11 [email or web address] nausea No 04/19/24 09:11 [email or web address] Vomiting No 04/19/24 09:11 [email or web address] Anesthesia Postop Eval I: Fluid Summary Crystalloid volume administer 400 04/19/24 09:11 [email or web address] (ml) Colloids volume administered ( ml) Blood Product volume administered (ml) Total IV fluid infused 400 04/19/24 09:11 [email or web address] Anesthesia Postop Eval I: Summary Notes Anesthesia Complication No 04/19/24 09:11 [email or web address] Anesthesia Complication Comment: Post-operative progress note Anesthesia: Postop Eval II Evaluation Mental status: Awake Pain Level: 0 nausea: No Vomiting: No 04/19/24921 Date Vin Lombardo Signature: Date CC: Signed Normal [facility] Surgery Specimen Level Joycelyn 04-19-2024 Surgery Specimen Level IV -------- ---- Patient Age/Sex Location Account Attending Physician ---- DICK ARTIS/F DOMITILA [id number] Real DO ---- Specimen: [id number] Received: 04/19/24 Status: ANGELA Bernstein Num: [id number] Spec Type: EGD BIOPSY Subm Dr: Teodoro Real DO HEADER OPERATION: EGD, biopsy, dilatation PRE-OP DIAGNOSIS: Dysphagia TISSUE SUBMITTED: Duodenal polyp biopsy ---- MICROSCOPIC DIAGNOSIS Duodenal polyp, biopsy: Fragments of benign mucosal polyp. 04/20/2024 MICROSCOPIC DESCRIPTION Slides are reviewed. GROSS DESCRIPTION Received in fixative is one container labeled with the patient's name and designated Duodenal polyp biopsy. The specimen consists of two irregular fragments of light figueroa soft tissue that in aggregate measure 0.8 x 0.4 x 0.1 cm. The specimen is totally submitted in one cassette. 04/19/2024 TC:5 CPT:94336 ---- Patient Age/Sex Location Account Attending Physician ---- DICK RATIS 88/F EN [id number] Teodoro Real, DO ---- Signed (signature on file) Dr. Sami Valente MD 04/20/24 1136 ---- Normal [facility] Comment on above: Performed By: #### P JOSE ####[facility] [address] [place], [address] CNOVanusha 04-06-2024 CNOV Office Visit (INTMWS ) DICK ARTIS ([id number]) 1935 F Date Time Provider Department 04/06/24 9:40 AM ROSAURA SUÁREZWS During your visit today, we recorded the following information about you: Pulse Blood pressure Weight 78/minute 142/60 64.1 kg Rosaura uSárez APRN.CORINNA 04/06/2024 10:06 AM Signed SUBJECTIVE Dick Artis is a 88 year old female here today for a check up on her medical problems. Chief Complaint Patient presents with: Recheck HPI Dick Artis is a 88 year old female. She is an established patient of Mady Dunn MD. Here today for a routine follow up. Last visit she had some complaints of left flank pain. Was in Er on 03/08 for shortness of breath and abdominal pain. Diagnosed with mild diverticulitis. Colonoscopy and EGD recommended. Scheduled for 04/[address] Real. Weight stable, appetite not great but not bad. Sleep is not great. Trouble falling asleep, trouble staying asleep, gets up to the bathroom. No recent falls. Back pain is manageable. Her medications were reviewed today and her list is now up to date. Medications Current Outpatient Medications Medication Sig furosemide (LASIX) 40 mg tablet Take 1 tablet by mouth two times a day. potassium chloride 20 mEq/15 mL solution Take 15 mL by mouth once daily. pantoprazole DR (PROTONIX) 40 mg tablet Take 1 tablet by mouth once daily. carvedilol (COREG) 25 mg tablet Take 1 tablet by mouth two times a day with meals. pramipexole (MIRAPEX) 1.5 mg tablet Take 1 tablet by mouth daily at bedtime. spironolactone (ALDACTONE) 25 mg tablet Take 1 tablet by mouth once daily. iron polysaccharide complex (FERREX-150) 150 mg iron capsule Take 1 capsule by mouth once daily. arformoterol (BROVANA) 15 mcg/2 mL nebulizer solution Inhale 2 mL as instructed every 12 hours. albuterol HFA (VENTOLIN HFA) 90 mcg/actuation inhaler Inhale 2 Puffs as instructed every 4 hours as needed for wheezing/shortness of breath. May take 2 puffs prior to exercise budesonide (PULMICORT) 0.5 mg/2 mL nebulizer solution USE 1 VIAL IN NEBULIZER EVERY 12 HOURS OVER 5-15 MINUTES atorvastatin (LIPITOR) 40 mg tablet take 1 tablet daily (Patient taking differently: Take 40 mg by mouth daily at bedtime.) clopidogrel (PLAVIX) 75 mg tablet take 1 tablet daily zolpidem (AMBIEN) 10 mg Take 1 tablet by mouth at bedtime as needed for up to 180 days. DULoxetine (CYMBALTA) 60 mg capsule Take 1 capsule by mouth once daily. Compression Socks, Medium misc 2 Each once daily. Or size to fit. 10-20 mmHg. On in a.m., off in evening. OXYGEN, HOME THERAPY, 3 L/min by Nasal Cannula route as directed. acetaminophen (TYLENOL) 500 mg tablet Take 1,000 mg by mouth every 6 hours as needed for pain (EVERY 6 HOURS NEEDED FOR PAIN). No current facility-administered medications for this visit. ALLERGIES Allergen Reactions Amlodipine Swelling Lower leg edema. Aspirin Unknown Lisinopril Cough Requip [Ropinirole] Other: See Comments Very anxious ACTIVE PROBLEM LIST Moderate Recurrent Major Depression ([facility]) - 11/30/2023 Type 2 Diabetes Mellitus With Hyperglycemia, Without Long-Term Current Use of Insulin ([facility]) - 10/19/2023 Osteopenia of Lumbar Spine - 05/23/2023 Chronic Bilateral Thoracic Back Pain - 04/04/2023 Lumbar Pain - 04/04/2023 Pad (Peripheral Artery Disease) ([facility]) - 11/11/2021 Carotid Artery Stenosis - 01/23/2021 Tia (Transient Ischemic Attack) - 05/26/2020 Comment: history of TIA, remote Obesity, Class I, Bmi 30-34.9 - 07/30/2018 Stage 3b Chronic Kidney Disease ([facility]) - 07/30/2018 Bifascicular Block - 10/11/2016 Mixed Simple and Mucopurulent Chronic Bronchitis ([facility]) - 01/10/2016 Mixed Hyperlipidemia - 01/10/2016 Essential Hypertension - 04/07/2015 Calculi, 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 Basilio @ [facility]- Cystopscopy, left retrograde pyelogram, left ureteroscopy, basked extraction of ureteral tissue Vitamin D Deficiency - 03/06/2012 Hyperlipidemia - 04/21/2011 Hypertension - 04/21/2011 Comment: 05/23/2023: Home BP Cuff Validated. Home BP: 143/56 p70 Office BP: 134/60 p69 S/P Unilateral Salpingo-Oophorectomy - 02/18/2011 S/P Wilfredo (Total Abdominal Hysterectomy) - 02/18/2011 Copd (Chronic Obstructive Pulmonary Disease) ([facility]) - 08/24/2010 Htn (Hypertension), Benign - 08/12/2009 Comment: 11/30/2023: Home BP Cuff Validated. Home BP: 136/61 P 85 Office BP: 130/50 P 85 Hypokalemia - 08/12/2009 Brachial Neuritis Or Radiculitis NOS - 05/24/2008 Diverticulosis of Colon (Without Mention of Hemorrhage) Comment: Diverticulosis Personal History of Colonic Polyps Comment: Colon polyps Restless Legs Syndrome (Rls) Peripheral Enthesopathies and Allied Syndromes - 05/20/2005 Osteoporosis, Unspecified - 05/20/2005 restless leg syndrome - 05/20/2005 Social History Tobacco Use Smoking status: Former Current pa (more content not included)... Normal [facility] Gastroenterology Visit Repor ton 03-22-2024 Gastroenterology Visit Report [facility] [address] [place] [address] OFFICE VISIT Date of Service: 03/22/24 MR#: [id number] Acct: [id number] Name: DICK ARTIS Rep #: [id number] : 1935 Provider: INDIRA Cox Age/Sex: 88/F [place] [facility] Status: Signed Intake Vital Signs 03/08/24 19:37 Height 5 ft 2 in Intake Visit Reasons: Hospital FU Chief Complaint: hospital f/u Allergies lisinopril Allergy (Verified 03/08/24 19:38) edema aspirin Adverse Reaction (Verified 03/08/24 19:38) Upset Stomach Medications ???Medication ???Instructions ???Recorded ???Confirmed ???Type atorvastatin 40 mg tablet 40 mg PO QHS cholesterol 02/22/16 03/22/24 History clopidogrel 75 mg tablet 75 mg PO DAILY BLOOD THINNER 02/22/16 03/22/24 History multivitamin with folic acid 400 1 tab PO DAILY supplement 02/22/16 03/22/24 History mcg tablet albuterol sulfate 90 mcg/actuation 2 puff inhalation BID PRN 03/16/18 03/22/24 History aerosol inhaler shortness of breath or wheezing albuterol sulfate 2.5 mg/3 mL 2.5 mg inhalation Q4H PRN 05/28/22 03/22/24 History (0.083 %) solution for nebulization shortness of breath or wheezing pramipexole 1.5 mg tablet 1.5 mg PO QHS restless leg syndrome 08/18/23 03/22/24 History budesonide 0.5 mg/2 mL suspension 0.25 mg inhalation BID breathing 09/09/23 03/22/24 Rx for nebulization 30 days #0 mL furosemide 40 mg tablet 40 mg PO BIDCM FLUID RETENTION 30 10/12/23 03/22/24 Rx days #60 tabs pantoprazole 40 mg tablet,delayed 40 mg PO BID reflux 30 days #60 10/12/23 03/22/24 Rx release tabs polysaccharide iron complex 150 mg 150 mg PO DAILY supplement 30 days 10/12/23 03/22/24 Rx iron capsule (Ferrex) #30 caps potassium chloride 20 mEq 20 meq PO BIDCM supplement 30 days 10/12/23 03/22/24 Rx tablet,extended release(part/cryst) #60 tabs Arthritis Pain Compound 3 click topical BID 5 days ##0 11/06/23 03/22/24 Rx acetaminophen 500 mg tablet 1,000 mg PO Q6H PRN 02/14/24 03/22/24 History arformoterol 15 mcg/2 mL solution 15 mcg inhalation BID 02/14/24 03/22/24 History for nebulization carvedilol 25 mg tablet 25 mg PO BID 02/14/24 03/22/24 History dextromethorphan-guaif enesin 30 2 tab PO BID PRN cough 02/14/24 03/22/24 History mg-600 mg tablet extended [id number] hr (Mucinex DM) duloxetine 20 mg capsule,delayed 40 mg PO DAILY 02/14/24 03/22/24 History release spironolactone 25 mg tablet 25 mg PO QDAY 02/14/24 03/22/24 History zolpidem 5 mg tablet 5 mg PO QHS PRN 02/14/24 03/22/24 History Have you fallen in the past year?: No [facility] Medical History Chronic hypoxic respiratory failure History of diabetes mellitus History of hypertension Diverticulitis History of chronic heart failure History of COPD COPD (chronic obstructive pulmonary disease) Anemia Chronic heart failure with preserved ejection fraction (HFpEF) Hyperlipidemia Right lumbar radiculopathy CKD (chronic kidney disease), stage III Hypertension Chronic kidney disease PAD (peripheral artery disease) Renal cyst History of TIA (transient ischemic attack) Bilateral carotid artery stenosis Claudication RLS (restless legs syndrome) Diverticulosis TIA (transient ischemic attack) Vertigo Leg edema Dyslipidemia Surgical History History of thyroid surgery History of carotid angioplasty History of kidney stones History of basal cell carcinoma excision History of total hysterectomy Family History Mother Heart disease Social History household members: none housing: house Smoking Status: Former smoker how long ago did patient quit smokin years ago alcohol intake: current alcohol intake frequency: holidays/special occasions only details: rare substance use type: does not use caffeine: Yes Type: coffee Number of servings: 1 HPI HPI Chief Complaint: hospital f/u Details: DICK ARTIS, is a 88 F who presents to the office today for f/u. She was hospitalized in August of 2023 for NSTEMI and COPD exacerbation. She was found to have down trending hemoglobin and underwent EGD. EGD 3.1.24; - LA Grade D erosive esophagitis with bleeding. Treated with a heater probe. - Non-bleeding gastric ulcers with no stigmata of bleeding. Biopsied. - Acute duodenitis. Biopsied OV 9.5.24 ; Patient has been doing well from GI standpoint up until recently when she had an episode of choking. She was eating a chicken wing when she stated to choke on it. She presented to the ED for this and was ultimately sent home after normal chest x-ray. After being sent home she had numer (more content not included)... Normal [facility] Chest PA and Lateralon 03-08 Chest PA and Lateral [facility] Imaging Services [address] [place], [place] [id number] Chest PA and Lateral MR#: [id number] Acct: [id number] Name: DICK ARTIS Rep #: [id number] : 1935 F 88 From: Elsa Bee PCP: WILMER Maynard Status: DEP ER Study: Chest PA and Lateral Date of Exam: 03/08/24 Exam# [id number] Ordering Dr: Frederick Zeng DO [id number] INDICATION: ASPIRATION/COPD EXAMINATION/TECHNIQUE: X-RAY - XR Chest 2 Views COMPARISON: 11/03/2023, 10/10/2023 FINDINGS: LINES/DEVICES: None. LUNGS: No consolidation. No pneumothorax. MEDIASTINUM: Unremarkable. CARDIAC SILHOUETTE: Not enlarged. BONES AND SOFT TISSUES: Multiple thoracic compression abnormalities with kyphosis, uncertain age but appear new compared to the prior chest x-ray from 10/10/2023. RAD/Chest PA and Lateral IMPRESSION: No evidence of active intrathoracic disease. Mid to lower thoracic compression fractures of uncertain age but new compared to prior study. Electronically Signed: Elsa Newell MD at 23:43 EDT Reading Location ID and State: [facility] / [place] Tel , Service support , CC: WILMER Suárez; Dr. Frederick Zeng DO 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: Signed Normal [facility] Emergency Department Summary on 03-08-2024 Emergency Department Summary [facility] Medical Records Department [address] [place] [address] Emergency Department Summary 03/08/24 MR#: [id number] Acct: [id number] Name: DICK ARTIS Rep #: [id number] : 1935 88 From: Frederick Zeng DO PCP: Rosaura Jose Armando, AUDIO SPECIALIST-C Status:DEP ER Location: ED HPI History of Present Illness Chief Complaint: Other, Pain/Inj Informant: patient and family Narrative Narrative: 88-year-old female presenting to the emergency room chief complaint of choking episode. Around 1:00 she was eating wings with barbecue sauce. She states that she began to choke and had multiple gagging spells. Eventually this subsided. Patient states that she was not bringing up actual emesis but tolerating clear phlegm. She notes a similar episode about 1 month ago. She was admitted into the hospital for prolonged period earlier this year. She underwent an EGD that showed esophagitis and gastric ulcer bleeding. This was performed by Dr. Real. She has never been diagnosed as a esophageal food impaction before. She states that lately she has had difficulty swallowing some of her larger pills. She notes a history of COPD is oxygen dependent. She states over the past couple days she has had some increased shortness of breath. She notes no change in her chronic cough or phlegm production. [facility] Medical History Chronic hypoxic respiratory failure History of diabetes mellitus History of hypertension Diverticulitis History of chronic heart failure History of COPD COPD (chronic obstructive pulmonary disease) Anemia Chronic heart failure with preserved ejection fraction (HFpEF) Hyperlipidemia Right lumbar radiculopathy CKD (chronic kidney disease), stage III Hypertension Chronic kidney disease PAD (peripheral artery disease) Renal cyst History of TIA (transient ischemic attack) Bilateral carotid artery stenosis Claudication RLS (restless legs syndrome) Diverticulosis TIA (transient ischemic attack) Vertigo Leg edema Dyslipidemia Home Medications ???Medication ???Instructions ???Recorded ???Last Taken ???Type atorvastatin 40 mg tablet 40 mg PO QHS cholesterol 02/22/16 10/04/23 21:55 History clopidogrel 75 mg tablet 75 mg PO DAILY BLOOD THINNER 02/22/16 10/05/23 08:50 History multivitamin with folic acid 400 1 tab PO DAILY supplement 02/22/16 10/05/23 08:50 History mcg tablet albuterol sulfate 90 mcg/actuation 2 puff inhalation BID PRN 03/16/18 09/02/23 History aerosol inhaler shortness of breath or wheezing albuterol sulfate 2.5 mg/3 mL 2.5 mg inhalation Q4H PRN 05/28/22 10/03/23 04:30 History (0.083 %) solution for nebulization shortness of breath or wheezing pramipexole 1.5 mg tablet 1.5 mg PO QHS restless leg syndrome 08/18/23 10/04/23 21:55 History budesonide 0.5 mg/2 mL suspension 0.25 mg inhalation BID breathing 09/09/23 10/05/23 07:00 Rx for nebulization 30 days #0 mL furosemide 40 mg tablet 40 mg PO BIDCM FLUID RETENTION 30 10/12/23 Unknown Rx days #60 tabs pantoprazole 40 mg tablet,delayed 40 mg PO BID reflux 30 days #60 10/12/23 Unknown Rx release tabs polysaccharide iron complex 150 mg 150 mg PO DAILY supplement 30 days 10/12/23 Unknown Rx iron capsule (Ferrex) #30 caps potassium chloride 20 mEq 20 meq PO BIDCM supplement 30 days 10/12/23 Unknown Rx tablet,extended release(part/cryst) #60 tabs Arthritis Pain Compound 3 click topical BID 5 days ##0 11/06/23 Unknown Rx acetaminophen 500 mg tablet 1,000 mg PO Q6H PRN 02/14/24 Unknown History arformoterol 15 mcg/2 mL solution 15 mcg inhalation BID 02/14/24 Unknown History for nebulization carvedilol 25 mg tablet 25 mg PO BID 02/14/24 Unknown History dextromethorphan-guaif enesin 30 2 tab PO BID PRN cough 02/14/24 Unknown History mg-600 mg tablet extended oxmgpyq17 hr (Mucinex DM) duloxetine 20 mg capsule,delayed 40 mg PO DAILY 02/14/24 Unknown History release spironolactone 25 mg tablet 25 mg PO QDAY 02/14/24 Unknown History zolpidem 5 mg tablet 5 mg PO QHS PRN 02/14/24 Unknown History Allergy/AdvReac Type Severity Reaction Status Date / Time lisinopril Allergy edema Verified 03/08/24 19:38 aspirin AdvReac Upset Verified 03/08/24 19:38 Stomach Family History Mother Heart disease Surgical History History of thyroid surgery History of carotid angioplasty History of kidney stones History of basal cell carcinoma excision History of total hysterectomy Social History household members: none housing: house Smoking Status: Former smoker how long ago did patient quit smokin years ago alcohol intake: current alc (more content not included)... Normal [facility] Cardiology Visit Reporton Cardiology Visit Report [facility] [address] [place] [address] OFFICE VISIT Date of Service: 02/14/24 MR#: [id number] Acct: [id number] Name: DICK ARTIS Rep #: [id number] : 1935 Provider: INDIRA Chaudhry Age/Sex: 88/F Location[place] [facility] Status: Signed HPI HPI History of Present Illness Details: Dick Artis is an 88-year-old female that presents to us today for cardiovascular follow-up. She has a history of hypertension, hyperlipidemia and carotid artery disease. She has had multiple hospital stays for pneumonia, COPD and diverticulitis. She has several stays in TCU. From a cardiac standpoint, patient is doing well. She does not have any chest discomfort/heaviness/t ightness. She does not have any worsening symptoms of shortness of breath. She does COPD and does use O2 at 2lnc She does not have any orthopnea. She denies PND. She does not have any symptoms of congestive heart failure. She does not have any palpitations that she is aware of. She does not have any lightheadedness or dizziness. She does not have any near-syncope or syncope. She does not have any lower extremity edema. She does not have any symptoms of claudication. She does ambulate with a wheeled walker. She has lost weight with her hospital stays. Intake Vital Signs 08/17/23 13:43 11/17/23 13:48 02/14/24 08:03 Height 5 ft 2 in 5 ft 2 in 5 ft 2 in Weight: 140 lb BMI 25.6 BP 145/75 H Blood Pressure Location Lt brachial Position Sitting Respiration 18 Pulse 76 Pulse Source Monitor Pulse Oximetry (%) 94 Oxygen Delivery Method nasal canula Oxygen Flow Rate (L/min) 2 Intake Visit Reasons: 6 M FU Accompanied by: Son Is patient in pain?: No Allergies lisinopril Allergy (Verified 02/14/24 10:22) edema aspirin Adverse Reaction (Verified 02/14/24 10:22) Upset Stomach Medications ???Medication ???Instructions ???Recorded ???Confirmed ???Type atorvastatin 40 mg tablet 40 mg PO QHS cholesterol 02/22/16 02/14/24 History clopidogrel 75 mg tablet 75 mg PO DAILY BLOOD THINNER 02/22/16 02/14/24 History multivitamin with folic acid 400 1 tab PO DAILY supplement 02/22/16 02/14/24 History mcg tablet albuterol sulfate 90 mcg/actuation 2 puff inhalation BID PRN 03/16/18 02/14/24 History aerosol inhaler shortness of breath or wheezing albuterol sulfate 2.5 mg/3 mL 2.5 mg inhalation Q4H PRN 05/28/22 02/14/24 History (0.083 %) solution for nebulization shortness of breath or wheezing pramipexole 1.5 mg tablet 1.5 mg PO QHS restless leg syndrome 08/18/23 02/14/24 History budesonide 0.5 mg/2 mL suspension 0.25 mg inhalation BID breathing 09/09/23 02/14/24 Rx for nebulization 30 days #0 mL furosemide 40 mg tablet 40 mg PO BIDCM FLUID RETENTION 30 10/12/23 02/14/24 Rx days #60 tabs pantoprazole 40 mg tablet,delayed 40 mg PO BID reflux 30 days #60 10/12/23 02/14/24 Rx release tabs polysaccharide iron complex 150 mg 150 mg PO DAILY supplement 30 days 10/12/23 02/14/24 Rx iron capsule (Ferrex) #30 caps potassium chloride 20 mEq 20 meq PO BIDCM supplement 30 days 10/12/23 02/14/24 Rx tablet,extended release(part/cryst) #60 tabs Arthritis Pain Compound 3 click topical BID 5 days ##0 11/06/23 02/14/24 Rx acetaminophen 500 mg tablet 1,000 mg PO Q6H PRN 02/14/24 02/14/24 History arformoterol 15 mcg/2 mL solution 15 mcg inhalation BID 02/14/24 02/14/24 History for nebulization carvedilol 25 mg tablet 25 mg PO BID 02/14/24 02/14/24 History dextromethorphan-guaif enesin 30 2 tab PO BID PRN cough 02/14/24 History mg-600 mg tablet extended hr (Mucinex DM) duloxetine 20 mg capsule,delayed 40 mg PO DAILY 02/14/24 02/14/24 History release spironolactone 25 mg tablet 25 mg PO QDAY 02/14/24 02/14/24 History zolpidem 5 mg tablet 5 mg PO QHS PRN 02/14/24 02/14/24 History Ejection fraction %: 70 Have you fallen in the past year?: No PFSH Medical History Chronic hypoxic respiratory failure History of diabetes mellitus History of hypertension Diverticulitis History of chronic heart failure History of COPD COPD (chronic obstructive pulmonary disease) Anemia Chronic heart failure with preserved ejection fraction (HFpEF) Hyperlipidemia Right lumbar radiculopathy CKD (chronic kidney disease), stage III Hypertension Chronic kidney disease PAD (peripheral artery disease) Renal cyst History of TIA (transient ischemic attack) Bilateral carotid artery stenosis Claudication RLS (restless legs syndrome) Diverticulosis TIA (transient ischemic attack) Vertigo Leg edema Dyslipidemia Surgical History History of thyroid surgery History of ca (more content not included)... [facility] 02-13-2024 [facility] Telephone (INTMWS) DICK ARTIS ([id number]) 1935 F Date Time Provider Department 02/13/24 ROSAURA SUÁREZ INTPerlitaWS During your visit today, we recorded the following information about you: Helena Quevedo RN 02/13/2024 10:00 AM Signed Patient calls to ask if provider has reviewed labs from 02/08/2024. Notified patient that provider hadn't had a chance to review yet but once completed we would contact her with provider recommendation. DEVANG Zmaora Rosa, APRN.YARD CRANE OPERATOR 02/13/2024 10:23 AM Signed Labs are overall stable, she is okay to stop her vitamin D3 supplement and she can stop her magnesium supplement too. Also can stop the vitamin C BUT she does still need to take the iron supplement. Potassium was also good on the labs, currently she is using up her prior potassium pills, what dose of the potassium supplements is she taking? We can likely reduce that. Her xray did not show signs of a kidney stone, no other issues seen either. Is she still having the side pain that she had when in to the office? Helena Quevedo RN 02/13/2024 10:59 AM Signed Patient called and notified of results and providers instructions. Patient verbalizes understanding. Patient currently taking potassium 20 meq twice daily. Has a one week supply left. Reports next order was going to be for liquid potassium to go to [facility] pharmacy. Patient reports that she is still having the left side pain not any better or worse in rating but it now comes and goes rather than staying constant. DEVANG Zamora Rosa, APRN.YARD CRANE OPERATOR 02/13/2024 1:12 PM Signed Since we ruled out a kidney stone this pain seems to be stemming from a musculoskeletal issue, I suspect a muscle strain. If it does not continue to improve then let us know. The potassium can be reduced to 20 meq once daily instead of twice daily. I will adjust her liquid potassium order to match that. Diann Nascimento LPN 02/13/2024 2:02 PM Signed Patient notified of same. Requesting a new order be sent with corrected directions to pharmacy Diann Nascimento LPN 02/13/2024 2:02 PM Signed Addended by: DIANN NASCIMENTO on: 02/13/2024 02:02 PM Modules accepted: Orders Rosaura Suárez APRN.YARD CRANE OPERATOR 02/13/2024 2:12 PM Signed Addended by: ROSAURA SUÁREZ on: 02/13/2024 02:12 PM Modules accepted: Orders Allergies As of Date: 02/13/2024 Noted Allergy Reaction AMLODIPINE 02/16/2016 7 - Swelling Comments: Lower leg edema. ASPIRIN 05/19/2005 16 - Unknown LISINOPRIL 09/06/2011 3 - Cough REQUIP (ROPINIROLE) 09/26/2007 14 - Other: See Comments Comments: Very anxious Date Reviewed: 02/08/2024 Reviewed by: Rosaura Suárez APRN.YARD CRANE OPERATOR - Fully Assessed Reason for Visit: Results [95] Order(s):potassium chloride 20 mEq/15 mL solutionTake 15 mL by mouth once daily.Disp: 473 mLRfl: 5 Prescriptions as of 02/13/2024 - potassium chloride 20 mEq/15 mL solution Take 15 mL by mouth once daily. - zolpidem (AMBIEN) 5 mg tablet Take 1 tablet by mouth at bedtime as needed for up to 180 days. - pantoprazole DR (PROTONIX) 40 mg tablet Take 1 tablet by mouth once daily. - DULoxetine (CYMBALTA) 20 mg capsule Take 2 capsules by mouth once daily. - carvedilol (COREG) 25 mg tablet Take 1 tablet by mouth two times a day with meals. - pramipexole (MIRAPEX) 1.5 mg tablet Take 1 tablet by mouth daily at bedtime. - spironolactone (ALDACTONE) 25 mg tablet Take 1 tablet by mouth once daily. - iron polysaccharide complex (FERREX-150) 150 mg iron capsule Take 1 capsule by mouth once daily. - Compression Socks, Medium misc 2 Each once daily. Or size to fit. 10-20 mmHg. On in a.m., off in evening. - furosemide (LASIX) 40 mg tablet Take 1 tablet by mouth two times a day. - arformoterol (BROVANA) 15 mcg/2 mL nebulizer solution Inhale 2 mL as instructed every 12 hours. - OXYGEN, HOME THERAPY, 3 L/min by Nasal Cannula route as directed. - acetaminophen (TYLENOL) 500 mg tablet Take 1,000 mg by mouth every 6 hours as needed for pain (EVERY 6 HOURS NEEDED FOR PAIN). - albuterol HFA (VENTOLIN HFA) 90 mcg/actuation inhaler Inhale 2 Puffs as instructed every 4 hours as needed for wheezing/shortness of breath. May take 2 puffs prior to exercise - budesonide (PULMICORT) 0.5 mg/2 mL nebulizer solution USE 1 VIAL IN NEBULIZER EVERY 12 HOURS OVER 5-15 MINUTES - atorvastatin (LIPITOR) 40 mg tablet take 1 tablet daily - clopidogrel (PLAVIX) 75 mg tablet take 1 tablet daily - multivitamin with folic acid (THERA, ONE DAILY) 400 mcg Take by mouth. Meds Comments as of 01/16/2021: Pulmicort Problem List As Of Date 02/13/2024 Noted Resolved PERIPH ENTHESOPATHIES [726] 05/20/2005 OSTEOPOROSIS NOS [M81.0] 05/20/2005 restless leg syndrome [G25.89] 05/20/2005 DIVERTICULOSIS OF COLON W/O BLEED [K57.30] PERS HX COLONIC POLYPS [Z86.010] RESTLESS LEGS SYNDROME [G25.81] BRACHIAL NEURITIS N (more content not included)... Normal [facility] XR Abdomen GE 3 Views AP and Oblique and Coneon 02-10-2024 IMPRESSION: No renal stones are detected 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: [facility] Transcribe Date/Time: Feb 10 2024 7:07P Dictated by : ANGIE WALKER MD This examination was interpreted and the report reviewed and electronically signed by: ANGIE WALKER MD on Feb 10 2024 7:08PM [facility] DIVISION OF RADIOLOGY * * *Final Report* * * DATE OF EXAM: Feb 08 2024 11:42AM WOX [id number] - XR ABDOMEN 3V KUB W/OBLIQUES / PROCEDURE REASON: multiple diagnoses * * * * Physician Interpretation * * * * XR ABDOMEN 3V KUB W/OBLIQUES PROVIDED HISTORY: Acute left flank pain History of kidney stones COMPARISON: 04/12/2012 TECHNIQUE: 3 views RESULT: No small bowel obstruction or free air seen. Vascular calcifications. Visualized lower lungs are grossly unremarkable. DIVISION OF RADIOLOGY Provider, [facility] - 02/10/2024 * * *Final Report* * * DATE OF EXAM: Feb 08 2024 11:42AM WOX [id number] - XR ABDOMEN 3V KUB W/OBLIQUES / PROCEDURE REASON: multiple diagnoses * * * * Physician Interpretation * * * * XR ABDOMEN 3V KUB W/OBLIQUES PROVIDED HISTORY: Acute left flank pain History of kidney stones COMPARISON: 04/12/2012 TECHNIQUE: 3 views RESULT: No small bowel obstruction or free air seen. Vascular calcifications. Visualized lower lungs are grossly unremarkable. IMPRESSION IMPRESSION: No renal stones are detected 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: [facility] Transcribe Date/Time: Feb 10 2024 7:07P Dictated by : ANGIE WALKER MD This examination was interpreted and the report reviewed and electronically signed by: ANGIE WALKER MD on Feb 10 2024 7:08PM [facility] XR Abdomen GE 3 Views AP and Oblique and ConeOrdered By: [facility] Provider on 02-10-2024 [facility] 25(OH)D3 SerPl-mCncon 2023 25-hydroxyvitamin D3 [Mass/Vol] 83.3 ng/mL High 31.0-80.0 [facility] Comment on above: Order Comment: Speci men Type: BLOOD SPECIMENOrdering Facility: [facility] Address: [address] [place] [address] Result Comment: Clas sification of 25 [place] Vitamin D status: Deficiency/Insufficiency: < or = 30 ng/ml. Sufficiency/Optimal Levels: 31-80 ng/mL Toxicity: > 100 ng/mL. Test performed by chemiluminescent immunoassay. Performed By: #### 1 989-3 ####[facility] LABCLIA [id number] [place] [address] [place] CBC W Auto Differential pane l (Bld)on 02-08-2024 Basophils (Bld) [#/Vol] 0.03 10*3/uL [facility] Basophils/100 WBC (Bld) 0.5 % C [facility] Differential cell count method Nom (Bld) Auto [facility] Eosinophils (Bld) [#/Vol] 0.11 10*3/uL [facility] Eosinophils/100 WBC (Bld) 1.8 % [facility] Erythrocyte distribution width (RBC) [Ratio] 14.4 % 11.5 - 15.0 % [facility] Hematocrit (Bld) [Volume fraction] 36.9 % 36.0 - 46.0 % [facility] Hemoglobin (Bld) [Mass/Vol] 11.9 g/dL 11.5 - 15.5 g/dL [facility] Immature granulocytes (Bld) [#/Vol] 0.03 10*3/uL [facility] Immature granulocytes/100 WBC (Bld) 0.5 % [facility] Interpretation and review of laboratory results Abnormal [facility] Lymphocytes (Bld) [#/Vol] 1.43 10*3/uL [facility] Lymphocytes/100 WBC (Bld) 22.9 % [facility] MCH (RBC) [Entitic mass] 31.2 pg 26. 0 - 34.0 pg [facility] MCHC (RBC) [Mass/Vol] 32.2 g/dL 30.5 - 36.0 g/dL [facility] MCV (RBC) [Entitic vol] 96.6 fL 80.0 - 100.0 fL [facility] Monocytes (Bld) [#/Vol] 0.63 10*3/uL [facility] Monocytes/100 WBC (Bld) 10.1 % C [facility] Neutrophils (Bld) [#/Vol] 4.01 10*3/uL [facility] Neutrophils/100 WBC (Bld) 64.2 % [facility] Nucleated RBC (Bld) [#/Vol] [facility] Nucleated RBC/100 WBC (Bld) [Ratio] 0.0 % /100 WBC [facility] Platelet mean volume (Bld) [Entitic vol] 10.9 fL 9.0 - 12.7 fL [facility] Platelets (Bld) [#/Vol] 178 10*3/uL [facility] RBC (Bld) [#/Vol] 3.82 10*6/uL Low 3.90 - 5.20 m/uL [facility] WBC (Bld) [#/Vol] 6.24 10*3/uL [facility] Basophils (Bld) [#/Vol] 0.03 10*3/uL Normal <0.11 [facility] Comment on above: Order Comment: Speci men Type: BLOOD SPECIMENOrdering Facility: [facility] Address: [address] [place] [address] Performed By: #### 5 7021-8 ####[facility] LABCLIA [id number] [place] [address] [place] Basophils/100 WBC (Bld) 0.5 % Normal [facility] Comment on above: Order Comment: Speci men Type: BLOOD SPECIMENOrdering Facility: [facility] Address: [address] [place] [address] Performed By: #### 5 7021-8 ####[facility] LABCLIA [id number] [place] [address] [place] Differential cell count method Nom (Bld) Auto Normal [facility] Comment on above: Order Comment: Speci men Type: BLOOD SPECIMENOrdering Facility: [facility] Address: [address] [place] [address] Performed By: #### 5 7021-8 ####[facility] LABCLIA [id number] [place] [address] [place] Eosinophils (Bld) [#/Vol] 0.11 10*3/uL Normal <0.46 [facility] Comment on above: Order Comment: Speci men Type: BLOOD SPECIMENOrdering Facility: [facility] Address: [address] [place] [address] Performed By: #### 5 7021-8 ####[facility] LABCLIA [id number] [place] [address] [place] Eosinophils/100 WBC (Bld) 1.8 % Normal [facility] Comment on above: Order Comment: Speci men Type: BLOOD SPECIMENOrdering Facility: [facility] Address: [address] [place] [address] Performed By: #### 5 7021-8 ####[facility] LABCLIA [id number] [place] [address] [place] Erythrocyte distribution width (RBC) [Ratio] 14.4 % Normal 11.5-15.0 [facility] Comment on above: Order Comment: Speci men Type: BLOOD SPECIMENOrdering Facility: [facility] Address: [address] [place] [address] Performed By: #### 5 7021-8 ####[facility] LABCLIA [id number] [place] [address] [place] Hematocrit (Bld) [Volume fraction] 36.9 % Normal 36.0-46.0 [facility] Comment on above: Order Comment: Speci men Type: BLOOD SPECIMENOrdering Facility: [facility] Address: [address] [place] [address] Performed By: #### 5 7021-8 ####[facility] LABCLIA [id number] [place] [address] [place] Hemoglobin (Bld) [Mass/Vol] 11.9 g/dL Normal 11.5-15. 5 [facility] Comment on above: Order Comment: Speci men Type: BLOOD SPECIMENOrdering Facility: [facility] Address: [address] [place] [address] Performed By: #### 5 7021-8 ####[facility] LABCLIA [id number] [place] [address] [place] Immature granulocytes (Bld) [#/Vol] 0.03 10*3/uL Normal <0.10 [facility] Comment on above: Order Comment: Speci men Type: BLOOD SPECIMENOrdering Facility: [facility] Address: [address] [place] [address] Performed By: #### 5 7021-8 ####[facility] LABCLIA [id number] [place] [address] [place] Immature granulocytes/100 WBC (Bld) 0.5 % Normal [facility] Comment on above: Order Comment: Speci men Type: BLOOD SPECIMENOrdering Facility: [facility] Address: [address] [place] [address] Performed By: #### 5 7021-8 ####[facility] LABCLIA [id number] [place] [address] [place] Lymphocytes (Bld) [#/Vol] 1.43 10*3/uL Normal 1.00-4.0 0 [facility] Comment on above: Order Comment: Speci men Type: BLOOD SPECIMENOrdering Facility: [facility] Address: [address] [place] [address] Performed By: #### 5 7021-8 ####[facility] LABIA [id number] [place] [address] [place] Lymphocytes/100 WBC (Bld) 22.9 % Normal [facility] Comment on above: Order Comment: Speci men Type: BLOOD SPECIMENOrdering Facility: [facility] Address: [address] [place] [address] Performed By: #### 5 7021-8 ####[facility] [id number] [place] [address] [place] MCH (RBC) [Entitic mass] 31.2 pg Normal 26.0-34.0 [facility] Comment on above: Order Comment: Speci men Type: BLOOD SPECIMENOrdering Facility: [facility] Address: [address] [place] [address] Performed By: #### 5 7021-8 ####[facility] LABIA [id number] [place] [address] [place] MCHC (RBC) [Mass/Vol] 32.2 g/dL Normal 30.5-36.0 [facility] Comment on above: Order Comment: Speci men Type: BLOOD SPECIMENOrdering Facility: [facility] Address: [address] [place] [address] Performed By: #### 5 7021-8 ####[facility] LABIA [id number] [place] [address] [place] MCV (RBC) [Entitic vol] 96.6 fL Normal 80.0-100.0 [facility] Comment on above: Order Comment: Speci men Type: BLOOD SPECIMENOrdering Facility: [facility] Address: [address] [place] [address] Performed By: #### 5 7021-8 ####[facility] LABCLIA [id number] [place] [address] [place] Monocytes (Bld) [#/Vol] 0.63 10*3/uL Normal <0.87 [facility] Comment on above: Order Comment: Speci men Type: BLOOD SPECIMENOrdering Facility: [facility] Address: [address] [place] [address] Performed By: #### 5 7021-8 ####[facility] LABCLIA [id number] [place] [address] [place] Monocytes/100 WBC (Bld) 10.1 % Normal [facility] Comment on above: Order Comment: Speci men Type: BLOOD SPECIMENOrdering Facility: [facility] Address: [address] [place] [address] Performed By: #### 5 7021-8 ####[facility] LABCLIA [id number] [place] [address] [place] Neutrophils (Bld) [#/Vol] 4.01 10*3/uL Normal 1.45-7.5 0 [facility] Comment on above: Order Comment: Speci men Type: BLOOD SPECIMENOrdering Facility: [facility] Address: [address] [place] [address] Performed By: #### 5 7021-8 ####[facility] LABCLIA [id number] [place] [address] [place] Neutrophils/100 WBC (Bld) 64.2 % Normal [facility] Comment on above: Order Comment: Speci men Type: BLOOD SPECIMENOrdering Facility: [facility] Address: [address] [place] [address] Performed By: #### 5 7021-8 ####[facility] LABCLIA [id number] [place] [address] [place] Nucleated RBC (Bld) [#/Vol] 10*3/uL Normal <0.01 [facility] Comment on above: Order Comment: Speci men Type: BLOOD SPECIMENOrdering Facility: [facility] Address: [address] [place] [address] Performed By: #### 5 7021-8 ####[facility] LABIA [id number] [place] [address] [place] Nucleated RBC/100 WBC (Bld) [Ratio] 0.0 /100 WBC Normal [facility] Comment on above: Order Comment: Speci men Type: BLOOD SPECIMENOrdering Facility: [facility] Address: [address] [place] [address] Performed By: #### 5 7021-8 ####[facility] LABIA [id number] [place] [address] [place] Platelet mean volume (Bld) [Entitic vol] 10.9 fL Normal 9.0-12.7 [facility] Comment on above: Order Comment: Speci men Type: BLOOD SPECIMENOrdering Facility: [facility] Address: [address] [place] [address] Performed By: #### 5 7021-8 ####[facility] LABIA [id number] [place] [address] [place] Platelets (Bld) [#/Vol] 178 10*3/uL Normal 150-400 [facility] Comment on above: Order Comment: Speci men Type: BLOOD SPECIMENOrdering Facility: [facility] Address: [address] [place] [address] Performed By: #### 5 7021-8 ####[facility] LABIA [id number] [place] [address] [place] RBC (Bld) [#/Vol] 3.82 10*6/uL Low 3.90-5.20 [facility] Comment on above: Order Comment: Speci men Type: BLOOD SPECIMENOrdering Facility: [facility] Address: [address] [place] [address] Performed By: #### 5 7021-8 ####[facility] LABCLIA [id number] [place] [address] [place] WBC (Bld) [#/Vol] 6.24 10*3/uL Normal 3.70-11.00 [facility] Comment on above: Order Comment: Speci men Type: BLOOD SPECIMENOrdering Facility: [facility] Address: [address] [place] [id number] Performed By: #### 5 7021-8 ####[facility] LABCLIA [id number] [place] [address] [place] CNOVon 02-08-2024 CNOV Office Visit (INTMWS ) DICK ARTIS ([id number]) 1935 F Date Time Provider Department 02/08/24 10:00 AM ROSAURA SUÁREZ INTMBRAULIO During your visit today, we recorded the following information about you: Pulse Blood pressure Weight 79/minute 120/48 63.5 kg Rosaura Suárez APRN.YARD CRANE OPERATOR 02/08/2024 1:30 PM Signed SUBJECTIVE Dick Artis is a 88 year old female here today for a check up on her medical problems. Chief Complaint Patient presents with: Recheck Flank Pain: left constant for about 2 weeks HPI Dick Artis is a 88 year old female. She is an established patient of Mady Dunn MD. Here today for a routine, 6 week follow up. She states today she feels she is doing okay overall. Notes concerns of some left flank pain, on going for about 2 weeks. No feeling the same as prior kidney stones but she does have a history of prior stones. No rash, does not feel like shingles. Sometimes feels better with moving/stretching. Continues with working with pain management at [facility] for her back pain. Last hgba1c at [facility] 09/14 7.2%. Sleeping well with ambien. Continues to follow with pulmonary. On o2. She questions if she might be able to reduce some of her supplements soon. Her medications were reviewed today and her list is now up to date. Medications Current Outpatient Medications Medication Sig DULoxetine (CYMBALTA) 20 mg capsule Take 2 capsules by mouth once daily. carvedilol (COREG) 25 mg tablet Take 1 tablet by mouth two times a day with meals. pramipexole (MIRAPEX) 1.5 mg tablet Take 1 tablet by mouth daily at bedtime. potassium chloride 20 mEq/15 mL solution Take 15 mL by mouth two times a day. spironolactone (ALDACTONE) 25 mg tablet Take 1 tablet by mouth once daily. iron polysaccharide complex (FERREX-150) 150 mg iron capsule Take 1 capsule by mouth once daily. magnesium oxide (MAG-OX) 400 mg (241.3 mg magnesium) tablet Take 1 tablet by mouth once daily. furosemide (LASIX) 40 mg tablet Take 1 tablet by mouth two times a day. Cholecalciferol, Vitamin D3, 25 mcg (1,000 unit) cap Take 2 capsules by mouth once daily. arformoterol (BROVANA) 15 mcg/2 mL nebulizer solution Inhale 2 mL as instructed every 12 hours. ascorbic acid, vitamin C, 500 mg cap Take 500 mg by mouth once daily. acetaminophen (TYLENOL) 500 mg tablet Take 1,000 mg by mouth every 6 hours as needed for pain (EVERY 6 HOURS NEEDED FOR PAIN). albuterol HFA (VENTOLIN HFA) 90 mcg/actuation inhaler Inhale 2 Puffs as instructed every 4 hours as needed for wheezing/shortness of breath. May take 2 puffs prior to exercise budesonide (PULMICORT) 0.5 mg/2 mL nebulizer solution USE 1 VIAL IN NEBULIZER EVERY 12 HOURS OVER 5-15 MINUTES atorvastatin (LIPITOR) 40 mg tablet take 1 tablet daily (Patient taking differently: Take 40 mg by mouth daily at bedtime.) clopidogrel (PLAVIX) 75 mg tablet take 1 tablet daily multivitamin with folic acid (THERA, ONE DAILY) 400 mcg Take by mouth. zolpidem (AMBIEN) 5 mg tablet Take 1 tablet by mouth at bedtime as needed for up to [address] (PROTONIX) 40 mg tablet Take 1 tablet by mouth once daily. Compression Socks, Medium misc 2 Each once daily. Or size to fit. 10-20 mmHg. On in a.m., off in evening. OXYGEN, HOME THERAPY, 3 L/min by Nasal Cannula route as directed. No current facility-administered medications for this visit. ALLERGIES Allergen Reactions Amlodipine Swelling Lower leg edema. Aspirin Unknown Lisinopril Cough Requip [Ropinirole] Other: See Comments Very anxious ACTIVE PROBLEM LIST Moderate Recurrent Major Depression ([facility]) - 11/30/2023 Type 2 Diabetes Mellitus With Hyperglycemia, Without Long-Term Current Use of Insulin ([facility]) - 10/19/2023 Osteopenia of Lumbar Spine - 05/23/2023 Chronic Bilateral Thoracic Back Pain - 04/04/2023 Lumbar Pain - 04/04/2023 Pad (Peripheral Artery Disease) ([facility]) - 11/11/2021 Carotid Artery Stenosis - 01/23/2021 Tia (Transient Ischemic Attack) - 05/26/2020 Comment: history of TIA, remote Obesity, Class I, Bmi 30-34.9 - 07/30/2018 Stage 3b Chronic Kidney Disease ([facility]) - 07/30/2018 Bifascicular Block - 10/11/2016 Mixed Simple and Mucopurulent Chronic Bronchitis ([facility]) - 01/10/2016 Mixed Hyperlipidemia - 01/10/2016 Essential Hypertension - 04/07/2015 Calculi, 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 Basilio @ [facility]- Cystopscopy, left retrograde pyelogram, left ureteroscopy, basked extraction of ureteral tissue Vitamin D Deficiency - 03/06/2012 Hyperlipidemia - 04/21/2011 Hypertension - 04/21/2011 Comment: 05/23/2023: Home BP Cuff Validated. Home BP: 143/56 p70 Office BP: 134/60 p69 S/P Unilateral Salpingo-Oophorectomy - 02/18/2011 S/P Wilfredo (Total Abdominal Hysterectomy) - 02/18/2011 Copd (Chronic Obstructive Pulmonary Disease) ([facility]) - 08/24/2010 Htn (Hypertension), Benign - 08/12/2009 Comment: 11/30/2023 (more content not included)... Normal [facility] Comprehensive metabolic 2000 panelon 02-08-2024 Albumin [Mass/Vol] 4.3 g/dL Normal 3.9-4.9 [facility] Comment on above: Order Comment: Speci men Type: BLOOD SPECIMENOrdering Facility: [facility] Address: [address] [place] [address] Performed By: #### 1 9123-9, 2276-4, 80835-8, 73762-6 ####[facility] LABCLIA [id number] [place] [address] [place] ALP [Catalytic activity/Vol] 97 U/L Normal 34-123 [facility] Comment on above: Order Comment: Speci men Type: BLOOD SPECIMENOrdering Facility: [facility] Address: [address] [place] [address] Performed By: #### 1 9123-9, 6-4, 83174-8, 40393-7 ####[facility] LABIA [id number] [place] [address] [place] ALT [Catalytic activity/Vol] 14 U/L Normal 7-38 [facility] Comment on above: Order Comment: Speci men Type: BLOOD SPECIMENOrdering Facility: [facility] Address: [address] [place] [address] Performed By: #### 1 9123-9, 6-4, 08384-3, 45594-1 ####[facility] LABIA [id number] [place] [address] [place] Anion gap [Moles/Vol] 15 mmol/L Normal 8-15 [facility] Comment on above: Order Comment: Speci men Type: BLOOD SPECIMENOrdering Facility: [facility] Address: [address] [place] [address] Performed By: #### 1 9123-9, 2276-4, 72881-7, 41438-5 ####[facility] LABCLIA [id number] [address] [address] [place] AST [Catalytic activity/Vol] 26 U/L Normal 13-35 [facility] Comment on above: Order Comment: Speci men Type: BLOOD SPECIMENOrdering Facility: [facility] Address: [address] [place] [address] Performed By: #### 1 9123-9, 2276-4, 36106-9, 45440-3 ####[facility] LABCLIA [id number] [place] [address] [place] Bilirubin [Mass/Vol] 0.4 mg/dL Normal 0.2-1.3 [facility] Comment on above: Order Comment: Speci men Type: BLOOD SPECIMENOrdering Facility: [facility] Address: [address] [place] [address] Performed By: #### 1 9123-9, 2276-4, 10736-2, 90988-7 ####[facility] LABCLIA [id number] [place] [address] [place] Calcium [Mass/Vol] 9.9 mg/dL Normal 8.5-10.2 [facility] Comment on above: Order Comment: Speci men Type: BLOOD SPECIMENOrdering Facility: [facility] Address: [address] [place] [address] Performed By: #### 1 9123-9, 6-4, 73390-9, 13977-0 ####[facility] LABCLIA [id number] [place] [address] [place] Chloride [Moles/Vol] 99 mmol/L Normal 98-107 [facility] Comment on above: Order Comment: Speci men Type: BLOOD SPECIMENOrdering Facility: [facility] Address: [address] [place] [address] Performed By: #### 1 9123-9, 2276-4, 94790-7, 05533-5 ####[facility] LABCLIA [id number] [place] [address] [place] CO2 [Moles/Vol] 28 mmol/L Normal 22-30 [facility] Comment on above: Order Comment: Speci men Type: BLOOD SPECIMENOrdering Facility: [facility] Address: [address] [place] [address] Performed By: #### 1 9123-9, 2276-4, 33377-3, 23007-5 ####[facility] LABCLIA [id number] [place] [address] [place] Creatinine [Mass/Vol] 1.34 mg/dL High 0.58-0.96 [facility] Comment on above: Order Comment: Speci men Type: BLOOD SPECIMENOrdering Facility: [facility] Address: [address] [place] [address] Performed By: #### 1 9123-9, 6-4, 35240-2, 02901-3 ####[facility] LABIA [id number] [place] [address] [place] Creatinine and Glomerular filtration rate.predicted panel (S/P/Bld) 39 mL/min/1.73m??? Low >=60 [facility] Comment on above: Order Comment: Speci yuri Type: BLOOD SPECIMENOrdering Facility: [facility] Address: [address] [place] [address] Result Comment: Rachelle mated Glomerular Filtration Rate (eGFR) is calculated using the 2020 CKD-EPI creatinine equation. This equation utilizes serum creatinine, sex, and age as parameters. The creatinine assay has traceable calibration to isotope dilution-mass spectrometry. Refer to KDIGO guidelines for clinical interpretation. In patients with unstable renal function, e.g. those with acute kidney injury, the eGFR may not accurately reflect actual GFR. Performed By: #### 1 9123-9, 6-4, 05414-5, 49635-5 ####[facility] LABCLIA [id number] [place] [address] [place] Glucose [Mass/Vol] 106 mg/dL High 74-99 [facility] Comment on above: Order Comment: Shawnee welch Type: BLOOD SPECIMENOrdering Facility: [facility] Address: [address] [place] [address] Result Comment: The [place] Diabetes Association (ADA) provides guidance for cutoff values for fasting glucose and random glucose. The ADA defines fasting as no caloric intake for at least 8 hours. Fasting plasma glucose results between 100 to 125 mg/dL indicate increased risk for diabetes (prediabetes). Fasting plasma glucose results greater than or equal to 126 mg/dL meet the criteria for diagnosis of diabetes. In the absence of unequivocal hyperglycemia, results should be confirmed by repeat testing. In a patient with classic symptoms of hyperglycemia or hyperglycemic crisis, random plasma glucose results greater than or equal to 200 mg/dL meet the criteria for diagnosis of diabetes. Reference: Standards of Medical Care in Diabetes 2016, [place] Diabetes Association. Diabetes Care. 2016.39(Suppl 1). Performed By: #### 1 9123-9, 2276-4, 01052-3, 22182-5 ####[facility] LABCLIA [id number] [place] [address] [place] Potassium [Moles/Vol] 4.2 mmol/L Normal 3.7-5.1 [facility] Comment on above: Order Comment: Shawnee welch Type: BLOOD SPECIMENOrdering Facility: [facility] Address: [address] [place] [address] Performed By: #### 1 9123-9, 2276-4, 40795-6, 97459-5 ####[facility] LABCLIA [id number] [place] [address] [place] Protein [Mass/Vol] 6.9 g/dL Normal 6.3-8.0 [facility] Comment on above: Order Comment: Shawnee welch Type: BLOOD SPECIMENOrdering Facility: [facility] Address: [address] [place], [place] [address] Performed By: #### 1 9123-9, 2276-4, 61649-0, 98564-2 ####[facility] LABCLIA [id number] [place] [address] [place] Sodium [Moles/Vol] 142 mmol/L Normal 136-144 [facility] Comment on above: Order Comment: Speci men Type: BLOOD SPECIMENOrdering Facility: [facility] Address: [address] [place] [address] Performed By: #### 1 9123-9, 2276-4, 12170-2, 67400-8 ####[facility] LABCLIA [id number] [place] [address] [place] Urea nitrogen [Mass/Vol] 54 mg/dL High 7-21 [facility] Comment on above: Order Comment: Speci men Type: BLOOD SPECIMENOrdering Facility: [facility] Address: [address] [place] [address] Performed By: #### 1 9123-9, 2276-4, 54965-6, 74791-2 ####[facility] LABIA [id number] [place] [address] [place] Ferritin SerPl-mCncon 2023 Ferritin [Mass/Vol] 173.0 ng/mL Normal 14.7-205.1 [facility] Comment on above: Order Comment: Speci men Type: BLOOD SPECIMENOrdering Facility: [facility] Address: [address] [place] [address] Performed By: #### 1 9123-9, 2276-4, 66501-4, 97539-2 ####[facility] LABIA [id number] [place] [id number] [place] HbA1c (Bld)on 02-08-2024 Average glucose Estimated from glycated hemoglobin (Bld) [Mass/Vol] 128 mg/dL [facility] Comment on above: eAG: (Estimated aver age glucose) is a calculated value from HgbA1c and is industrial relations representative of the average blood glucose level in the last 2-3 month period. HbA1c (Bld) [Mass fraction] 6.1 % High 4.3 - 5.6 % [facility] Comment on above: [place] Diabetes As sociation guidelines indicate that patients with HgbA1c in the range 5.7-6.4% are at increased risk for development of diabetes, and intervention by lifestyle modification may be beneficial. HgbA1c greater or equal to 6.5% is considered diagnostic of diabetes. Interpretation and review of laboratory results Abnormal [facility] Average glucose Estimated from glycated hemoglobin (Bld) [Mass/Vol] 128 mg/dL Normal [facility] Comment on above: Order Comment: Shawnee welch Type: BLOOD SPECIMENOrdering Facility: [facility] Address: [address] [place] [address] Result Comment: eAG: (Estimated average glucose) is a calculated value from HgbA1c and is industrial relations representative of the average blood glucose level in the last 2-3 month period. Performed By: #### 5 5454-3 ####[facility] LABCLIA [id number] [place] [address] [place] HbA1c (Bld) [Mass fraction] 6.1 % High 4.3-5.6 [facility] Comment on above: Order Comment: Shawnee welch Type: BLOOD SPECIMENOrdering Facility: [facility] Address: [address] [place] [address] Result Comment: [place] Diabetes Association guidelines indicate that patients with HgbA1c in the range 5.7-6.4% are at increased risk for development of diabetes, and intervention by lifestyle modification may be beneficial. HgbA1c greater or equal to 6.5% is considered diagnostic of diabetes. Performed By: #### 5 5454-3 ####[facility] LABCLIA [id number] [place] [address] [place] Iron and Iron binding capaci ty panelon 02-08-2024 Iron [Mass/Vol] 57 ug/dL Normal 41-186 [facility] Comment on above: Order Comment: Shawnee welch Type: BLOOD SPECIMENOrdering Facility: [facility] Address: [address] [place] [address] Performed By: #### 1 9123-9, 2276-4, 71035-9, 51882-6 ####[facility] LABCLIA [id number] [place] [address] [place] Iron binding capacity [Mass/Vol] 323 ug/dL Normal 232-386 [facility] Comment on above: Order Comment: Speci men Type: BLOOD SPECIMENOrdering Facility: [facility] Address: [address] [place] [address] Performed By: #### 1 9123-9, 2276-4, 15821-5, 14783-4 ####[facility] LABCLIA [id number] [place] [address] [place] Iron/TIBC [Molar ratio] 17.6 % Normal 15.0-57.0 [facility] Comment on above: Order Comment: Speci men Type: BLOOD SPECIMENOrdering Facility: [facility] Address: [address] [place] [address] Performed By: #### 1 9123-9, 2276-4, 80465-1, 10258-3 ####[facility] LABIA [id number] [place] [address] [place] Magnesium SerPl-mCncon 02-07 Magnesium [Mass/Vol] 1.8 mg/dL Normal 1.7-2.3 [facility] Comment on above: Order Comment: Speci men Type: BLOOD SPECIMENOrdering Facility: [facility] Address: [address] [place] [address] Performed By: #### 1 9123-9, 2276-4, 12883-1, 98373-9 ####[facility] LABIA [id number] [place] [id number] [place] XR ABDOMEN 3V KUB W/OBLIQUES on 02-08-2024 XR ABDOMEN 3V KUB W/OBLIQUES * * *Final Report* * * DATE OF EXAM: Feb 08 2024 11:42AM WOX [id number] - XR ABDOMEN 3V KUB W/OBLIQUES / PROCEDURE REASON: multiple diagnoses * * * * Physician Interpretation * * * * XR ABDOMEN 3V KUB W/OBLIQUES PROVIDED HISTORY: Acute left flank pain History of kidney stones COMPARISON: 04/12/2012 TECHNIQUE: 3 views RESULT: No small bowel obstruction or free air seen. Vascular calcifications. Visualized lower lungs are grossly unremarkable. IMPRESSION: No renal stones are detected 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: JANE Transcribe Date/Time: Feb 10 2024 7:07P Dictated by : ANGIE WALKER MD This examination was interpreted and the report reviewed and electronically signed by: ANGIE WALKER MD on Feb 10 2024 7:08PM EST [id number] Normal [facility] XR Abdomen GE 3 Views AP and Oblique and Coneon 02-08-2024 Radiology Study observation (narrative) [facility] SPIROMETRY BASELINE ONLYon 0 12-20-2023 NOY16-68% PRE (L/S) 0.33 L/S [facility] FEV1 PRE (L) 0.89 L [facility] FEV1/FVC PRE (%) 56 % [facility] FVC PRE (L) 1.56 L [facility] PEF PRE (L/S) 2.05 L/S [facility] [address] [place] [address] Test Date: 2023-12-20 Pat Name: DICK ARTIS Department: Room: 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 No contraindications or sensitivities were noted. Meds taken: none before testing. Current ATS/ERS acceptability and repeatability standards for spirometry met. Start of test and EOFE criteria met. IMPRESSION: Spirometry indicates moderately severe obstruction. Electronically Signed On 12-20-2023 14:45:37 EDT by Lucy Snider MD ID: [id number] Name: DICK ARTIS Race: White Ht: 62.00 in Wt: 146.00 lbs Age: 88 Gender: Female : 1935 Dx: COPD_ Smoking Hx: Non-smoker Doctor: ALINA DELVALLE Test Date: 12/20/2023 Site: Tech: Heaven Sanchez PRE-BRONCH POST-BRONCH Pre LLN Pred ULN %Pred Post %Pred %Chg SPIROMETRY FVC (L) 1.56 1.53 2.25 3.00 69 FEV1 (L) 0.89 1.13 1.70 2.23 52 FEV1/FVC 0.57 0.64 0.78 0.89 73 PEF L/s (L/sec) 2.05 2.25 3.85 5.46 53 FEF50 (L/sec) 0.54 0.94 2.55 4.16 21 FIF50 (L/sec) 2.12 FEF50/FIF50 0.26 90-100 FIVC (L) 1.38 LHP67-14 (L/sec) 0.33 0.52 1.33 2.61 24 Time (sec) 10.37 FET PEF (sec) 0.14 JUAN LUIS (L) 0.04 Vol Extrap % (%) 3 Comments: Medications and Allergies were reviewed for possible drug interactions per policy. No contraindications or sensitivities were noted. Meds taken: none before testing. Current ATS/ERS acceptability and repeatability standards for spirometry met. Start of test and EOFE criteria met. PULMONARY FUNCTION LAB [facility] Basophil percentageOrdered B y: Maddison Renteria on 11-14-2023 Basophil percentage 115 mg/dL 74-106 [facility] Basophil percentage 141 mmol/L 136-145 [facility] Basophil percentage 3.9 mmol/L 3.5-5.1 [facility] Basophil percentage 102 mmol/L 98-107 [facility] No Panel InformationOrdered By: Maddison Renteria on 11-14-2023 4.84 mg/dL 4.36-5.20 [facility] 44 mL/min >60 [facility] 53 mL/min >60 [facility] 21.1 RATIO 10-20 [facility] 1.6 mg/dL 1.6-2.6 [facility] 34.0 mmol/L 21.0-32.0 [facility] 73.5 pg/mL 18.4-80.1 [facility] Serum or plasma calcium magalis urement (mass/volume)Ordered By: Maddison Renteria on 11-14-2023 Calcium [Mass/Vol] 8.6 mg/dL 8.5-10.1 [facility] Serum or plasma creatinine m easurement (mass/volume)Ordered By: Maddisonterrance Renteria on 11-14-2023 Creatinine [Mass/Vol] 1.23 mg/dL 0.55-1.02 [facility] Serum or plasma urea nitroge n measurement (mass/volume)Ordered By: Maddison Renteria on 11-14-2023 Urea nitrogen [Mass/Vol] 26 mg/dL 7-18 [facility] Thin prep Papanicolaou smear with manual screeningOrdered By: Maddison Renteria on 11-14-2023 Thin prep Papanicolaou smear with manual screening 5 5-15 [facility] Absolute lymphocyte countOrd ered By: Pema Doron on 11-06-2023 Lymphocytes Auto (Unsp spec) [#/Vol] 1.17 10*3/uL 0.83-4.51 [facility] Automated lymphocyte count a s percentage of total leukocytesOrdered By: Pema Doron on 11-06-2023 Lymphocytes/100 WBC Auto (Unsp spec) 26.1 % 19-41 [facility] Basophil percentageOrdered B y: Pema Sal on 11-06-2023 Basophil percentage 8.3 g/dL 12.0-15.0 [facility] Basophil percentage 103 mg/dL 74-106 [facility] Basophil percentage 5.6 g/dL 6.4-8.2 [facility] Basophil percentage 0.20 mg/dL 0.20-1.00 [facility] Basophil percentage 140 mmol/L 136-145 [facility] percentage 3.8 mmol/L 3.5-5.1 [facility] Basophil percentage 105 mmol/L 98-107 [facility] Basophils (Bld) [#/Vol] 4.5 10*3/uL 4.4-11.0 [facility] Basophils (Bld) [#/Vol] 2.3 10*3/uL 2.0-7.7 [facility] Basophils/100 WBC (Bld) 50.3 % 47-[address] [facility] Basophils/100 WBC (Bld) 16.3 % 0-[address] [facility] Basophils/100 WBC (Bld) 6.0 % 0-[address] [facility] Basophils/100 WBC (Bld) 0.4 % 0-[address] [facility] Blood manual differential co mment interpretation (narrative result)Ordered By: Pema Sal on 11-06-2023 Manual differential comment Kan (Bld) [Interp] SCANNED [facility] Determination of erythrocyte mean corpuscular volume (MCV)Ordered By: Pema Sal on 11-06-2023 MCV (RBC) [Entitic vol] 104.9 fL 81-[address] [facility] Erythrocyte distribution wid th ratioOrdered By: Pema Doron on 11-06-2023 Erythrocyte distribution width (RBC) [Ratio] 17.8 % 11.6-14.6 [facility] Erythrocyte distribution wid th standard deviationOrdered By: Doron on 11-06-2023 Erythrocyte distribution width (RBC) [Entitic vol] 68.8 fL 35.1-43.9 [facility] Hematocrit Auto (Bld) [Volum e fraction]Ordered By: Pema Sal on 11-06-2023 Hematocrit (Bld) [Volume fraction] 27.9 % 37-47 [facility] Immature granulocytes/100 WB C Auto (Bld)Ordered By: Pema Sal on 11-06-2023 Immature granulocytes/100 WBC (Bld) 0.900 % 0.0-0.9 [facility] Macrocytes detectionOrdered By: Pema Doron on 11-06-2023 Macrocytes Ql (Bld) 1+ [facility] No Panel InformationOrdered By: Pema Doron on 11-06-2023 31.2 pg 27.0-32.0 [facility] 29.7 g/dL 32-36 [facility] 166 K/mm3 150-450 [facility] 10.6 fl 6.2-12.0 [facility] 0 % 0-5 [facility] 2+ [facility] 48 mL/min >60 [facility] 58 mL/min >60 [facility] 32.36 ml/min [facility] 23.5 RATIO 10-20 [facility] 3.2 g/dL 2.2-4.2 [facility] 0.8 RATIO 0.9-2.4 [facility] 73 U/L 45-117 [facility] 15 U/L 13-56 [facility] 31.0 mmol/L 21.0-32.0 [facility] RBC Auto (Bld) [#/Vol]Ordere d By: Pema Doron on 11-06-2023 RBC (Bld) [#/Vol] 2.66 10*6/uL 4.2-5.4 [facility] Serum or plasma calcium magalis urement (mass/volume)Ordered By: Pema Sal on 11-06-2023 Calcium [Mass/Vol] 8.1 mg/dL 8.5-10.1 [facility] Serum or plasma creatinine m easurement (mass/volume)Ordered By: Pema Sal on 11-06-2023 Creatinine [Mass/Vol] 1.15 mg/dL 0.55-1.02 [facility] Serum or plasma urea nitroge n measurement (mass/volume)Ordered By: Pema Sal on 11-06-2023 Urea nitrogen [Mass/Vol] 27 mg/dL 7-18 [facility] Thin prep Papanicolaou smear with manual screeningOrdered By: Pema Sal on 11-06-2023 Thin prep Papanicolaou smear with manual screening 1+ [facility] Thin prep Papanicolaou smear with manual screening 2.4 g/dL 3.2-5.0 [facility] Thin prep Papanicolaou smear with manual screening 24 U/L 15-37 [facility] Thin prep Papanicolaou smear with manual screening 4 5-15 [facility] Bacteria identified Cx Nom ( U)Ordered By: Pema Sal on 11-05-2023 Culture, urine Klebsiella aerogenes [facility] Culture, urine Enterococcus faecium [facility] Culture, urine Yeast, not Sera albicans [facility] Absolute lymphocyte countOrd ered By: Ana Grayson on 11-03-2023 Lymphocytes Auto (Unsp spec) [#/Vol] 1.18 10*3/uL 0.83-4.51 [facility] Automated lymphocyte count a s percentage of total leukocytesOrdered By: Ana Grayson on 11-03-2023 Lymphocytes/100 WBC Auto (Unsp spec) 20.1 % 19-41 [facility] Basophil percentageOrdered B y: Ana Grayson on 11-03-2023 Basophil percentage 0-5 SEEN /hpf 0-5 [facility] Basophil percentage 9.3 g/dL 12.0-15.0 [facility] Basophil percentage 112 mg/dL 74-106 [facility] Basophil percentage 141 mmol/L 136-145 [facility] Basophil percentage 2.6 mmol/L 3.5-5.1 [facility] Basophil percentage 99 mmol/L 98-107 [facility] Basophils (Bld) [#/Vol] 5.9 10*3/uL 4.4-11.0 [facility] Basophils (Bld) [#/Vol] 3.7 10*3/uL 2.0-7.7 [facility] Basophils/100 WBC (Bld) 63.5 % 47-[address] [facility] Basophils/100 WBC (Bld) 14.3 % 0-[address] [facility] Basophils/100 WBC (Bld) 1.5 % 0-[address] [facility] Basophils/100 WBC (Bld) 0.3 % 0-[address] [facility] Bilirubin Test strip Ql (U)O rdered By: Ana Grayson on 11-03-2023 Bilirubin Ql (U) Negative Negative [facility] Determination of erythrocyte mean corpuscular volume (MCV)Ordered By: Ana Grayson on 11-03-2023 MCV (RBC) [Entitic vol] 97.3 fL 81-[address] [facility] Erythrocyte distribution wid th ratioOrdered By: Ana Grayson on 11-03-2023 Erythrocyte distribution width (RBC) [Ratio] 17.9 % 11.6-14.6 [facility] Erythrocyte distribution wid th standard deviationOrdered By: Ana Grayson on 11-03-2023 Erythrocyte distribution width (RBC) [Entitic vol] 63.7 fL 35.1-43.9 [facility] Hematocrit Auto (Bld) [Volum e fraction]Ordered By: Ana Grayson on 11-03-2023 Hematocrit (Bld) [Volume fraction] 28.9 % 37-47 [facility] Immature granulocytes/100 WB C Auto (Bld)Ordered By: Ana Grayson on 11-03-2023 Immature granulocytes/100 WBC (Bld) 0.300 % 0.0-0.9 [facility] Ketones Test strip Ql (U)Ord ered By: Ana Grayson on 11-03-2023 Ketones Ql (U) Negative Negative [facility] Mucus LM Ql (Urine sed)Order ed By: Ana Grayson on 11-03-2023 Mucus Ql (Urine sed) 0 SEEN /hpf [facility] Nitrite Test strip Ql (U)Ord ered By: Ana Grayson on 11-03-2023 Nitrite Ql (U) Negative Negative [facility] No Panel InformationOrdered By: Ana Grayson on 11-03-2023 0 SEEN /hpf 0-5 [facility] 31.3 pg 27.0-32.0 [facility] 32.2 g/dL 32-36 [facility] 194 K/mm3 150-450 [facility] 10.2 fl 6.2-12.0 [facility] 0 % 0-5 [facility] 43 mL/min >60 [facility] 52 mL/min >60 [facility] 28.84 ml/min [facility] 49.6 RATIO 10-20 [facility] 17 pg/mL 3.0-54.0 [facility] 36.0 mmol/L 21.0-32.0 [facility] 310.7 pg/mL 0-100 [facility] No Panel InformationOrdered By: Pema Sal on 11-03-2023 2.1 mg/dL 1.6-2.6 [facility] Protein Test strip Ql (U)Ord ered By: Ana Grayson on 11-03-2023 Protein Ql (U) Negative Negative [facility] RBC Auto (Bld) [#/Vol]Ordere d By: Ana Grayson on 11-03-2023 RBC (Bld) [#/Vol] 2.97 10*6/uL 4.2-5.4 [facility] Serum or plasma calcium magalis urement (mass/volume)Ordered By: Ana Grayson on 11-03-2023 Calcium [Mass/Vol] 8.6 mg/dL 8.5-10.1 [facility] Serum or plasma creatinine m easurement (mass/volume)Ordered By: Ana Grayson on 11-03-2023 Creatinine [Mass/Vol] 1.25 mg/dL 0.55-1.02 [facility] Serum or plasma urea nitroge n measurement (mass/volume)Ordered By: Ana Grayson on 11-03-2023 Urea nitrogen [Mass/Vol] 62 mg/dL 02-01 [facility] Squamous epithelial cells de tection in urine sediment by light microscopyOrdered By: Ana Grayson on 11-03-2023 Epithelial cells.squamous LM Ql (Urine sed) 0 SEEN /hpf 5-10 [facility] Thin prep Papanicolaou smear with manual screeningOrdered By: Ana Grayson on 11-03-2023 Thin prep Papanicolaou smear with manual screening 6 5-15 [facility] Urine blood detectionOrdered By: Ana Grayson on 11-03-2023 RBC Ql (U) Negative Negative [facility] Urine clarityOrdered By: Gretta Grayson on 11-03-2023 Clarity (U) Sl. Cloudy Clear [facility] Urine color determinationOrd ered By: Ana Grayson on 11-03-2023 Color (U) Yellow Yellow [facility] Urine glucose detectionOrder ed By: Ana Grayson on 11-03-2023 Glucose Ql (U) Normal mg/dl Normal [facility] Urine leukocyte esterase det ection by dipstickOrdered By: Ana Grayson on 11-03-2023 Leukocyte esterase Test strip Ql (U) 100 /ul Negative [facility] Urine pHOrdered By: Ana Grayson on 11-03-2023 pH (U) 7.0 [pH] 5.0 - 8.0 [facility] Urine sediment bacteria coun t by microscopy (number/high power field)Ordered By: Ana Grayson on 11-03-2023 Bacteria LM.HPF (Urine sed) [#/Area] 2 /[HPF] None Seen [facility] Urine specific gravity measu rementOrdered By: Ana Grayson on 11-03-2023 Specific gravity (U) [Rel density] 1.005 1.002-1.03 0 [facility] Urine urobilinogen measureme ntOrdered By: Ana Grayson on 11-03-2023 Urobilinogen Ql (U) Normal mg/dl Normal [facility] Comprehensive metabolic 2000 panelon 10-19-2023 Albumin [Mass/Vol] 3.6 g/dL Low 3.9 - 4.9 g/dL [facility] ALP [Catalytic activity/Vol] 89 U/L 34 - 123 U/L [facility] ALT [Catalytic activity/Vol] 19 U/L 7 - 38 U/L [facility] Anion gap [Moles/Vol] 20 mmol/L High 9 - 18 mmol/L [facility] AST [Catalytic activity/Vol] 40 U/L High 13 - 35 U/L [facility] Bilirubin [Mass/Vol] 0.4 mg/dL 0.2 - 1 .3 mg/dL [facility] Calcium [Mass/Vol] 8.4 mg/dL Low 8.5 - 10. 2 mg/dL [facility] Chloride [Moles/Vol] 100 mmol/L 97 - 10 5 mmol/L [facility] CO2 [Moles/Vol] 21 mmol/L Low 22 - 30 mmol/L [facility] Creatinine [Mass/Vol] 1.30 mg/dL High 0.58 - 0.96 mg/dL [facility] Estimated Glomerular Filtration Rate 40 mL/min/1.73m Low >=60 mL/min/1.7 3m [facility] Glucose [Mass/Vol] 103 mg/dL High 74 - 99 mg/dL [facility] Potassium [Moles/Vol] [facility] Protein [Mass/Vol] 6.3 g/dL 6.3 - 8.0 g/dL [facility] Sodium [Moles/Vol] 141 mmol/L 136 - 144 mmol/L [facility] Urea nitrogen [Mass/Vol] 38 mg/dL High 7 - 21 mg/dL [facility] NT PRO BNPon 10-19-2023 Natriuretic peptide.B prohormone N-Terminal [Mass/Vol] 704 pg/mL High <450 pg/mL [facility] Basophil percentageOrdered B y: Richy Pierson on 10-15-2023 Basophil percentage 99 mg/dL 74-106 [facility] Basophil percentage 140 mmol/L 136-145 [facility] Basophil percentage 3.9 mmol/L 3.5-5.1 [facility] Basophil percentage 104 mmol/L 98-107 [facility] No Panel InformationOrdered By: Richy Pierson on 10-15-2023 44 mL/min >60 [facility] 54 mL/min >60 [facility] 29.83 ml/min [facility] 31.1 RATIO 10-20 [facility] 32.0 mmol/L 21.0-32.0 [facility] Serum or plasma calcium magalis urement (mass/volume)Ordered By: Richy Pierson on 10-15-2023 Calcium [Mass/Vol] 8.5 mg/dL 8.5-10.1 [facility] Serum or plasma creatinine m easurement (mass/volume)Ordered By: Richy Pierson on 10-15-2023 Creatinine [Mass/Vol] 1.22 mg/dL 0.55-1.02 [facility] Serum or plasma urea nitroge n measurement (mass/volume)Ordered By: Richy Pierson on 10-15-2023 Urea nitrogen [Mass/Vol] 38 mg/dL 7-18 [facility] Thin prep Papanicolaou smear with manual screeningOrdered By: Richy Pierson on 10-15-2023 Thin prep Papanicolaou smear with manual screening 4 5-15 [facility] Absolute lymphocyte countOrd ered By: Richy Pierson on 10-13-2023 Lymphocytes Auto (Unsp spec) [#/Vol] 1.42 10*3/uL 0.83-4.51 [facility] Automated lymphocyte count a s percentage of total leukocytesOrdered By: Richy Pierson on 10-13-2023 Lymphocytes/100 WBC Auto (Unsp spec) 22.1 % 19-41 [facility] Basophil percentageOrdered B y: Richy Pierson on 10-13-2023 Basophil percentage 8.6 g/dL 12.0-15.0 [facility] Basophils (Bld) [#/Vol] 6.4 10*3/uL 4.4-11.0 [facility] Basophils (Bld) [#/Vol] 3.7 10*3/uL 2.0-7.7 [facility] Basophils/100 WBC (Bld) 57.2 % 47-[address] [facility] Basophils/100 WBC (Bld) 15.3 % 0-[address] [facility] Basophils/100 WBC (Bld) 3.9 % 0-[address] [facility] Basophils/100 WBC (Bld) 0.6 % 0-[address] [facility] Blood manual differential co mment interpretation (narrative result)Ordered By: Richy Pierson on 10-13-2023 Manual differential comment Kan (Bld) [Interp] SCANNED [facility] Determination of erythrocyte mean corpuscular volume (MCV)Ordered By: Richy Pierson on 10-13-2023 MCV (RBC) [Entitic vol] 99.3 fL 81-99 [facility] Erythrocyte distribution wid th ratioOrdered By: Richy Pierson on 10-13-2023 Erythrocyte distribution width (RBC) [Ratio] 18.8 % 11.6-14.6 [facility] Erythrocyte distribution wid th standard deviationOrdered By: Richy Pierson on 10-13-2023 Erythrocyte distribution width (RBC) [Entitic vol] 67.7 fL 35.1-43.9 [facility] Hematocrit Auto (Bld) [Volum e fraction]Ordered By: Richy Pierson on 10-13-2023 Hematocrit (Bld) [Volume fraction] 28.6 % 37-47 [facility] Immature granulocytes/100 WB C Auto (Bld)Ordered By: Richy Pierson on 10-13-2023 Immature granulocytes/100 WBC (Bld) 0.900 % 0.0-0.9 [facility] No Panel InformationOrdered By: Richy Pierson on 10-13-2023 29.9 pg 27.0-32.0 [facility] 30.1 g/dL 32-36 [facility] 170 K/mm3 150-450 [facility] 10.3 fl 6.2-12.0 [facility] 0 % 0-5 [facility] 3+ [facility] RBC Auto (Bld) [#/Vol]Ordere d By: Richy Pierson on 10-13-2023 RBC (Bld) [#/Vol] 2.88 10*6/uL 4.2-5.4 [facility] Thin prep Papanicolaou smear with manual screeningOrdered By: Richy Pierson on 10-09-2023 Thin prep Papanicolaou smear with manual screening 117 mg/dL 74-106 [facility] Basophil percentageOrdered B y: Herrera Bauman on 10-05-2023 Basophil percentage 106 mg/dL 74-106 [facility] Basophil percentage 140 mmol/L 136-145 [facility] Basophil percentage 3.4 mmol/L 3.5-5.1 [facility] Basophil percentage 103 mmol/L 98-107 [facility] No Panel InformationOrdered By: Herrera Bauman on 10-05-2023 39 mL/min >60 [facility] 47 mL/min >60 [facility] 26.53 ml/min [facility] 32.1 RATIO 10-20 [facility] 29.0 mmol/L 21.0-32.0 [facility] Serum or plasma calcium magalis urement (mass/volume)Ordered By: Herrera Bauman on 10-05-2023 Calcium [Mass/Vol] 8.7 mg/dL 8.5-10.1 [facility] Serum or plasma creatinine m easurement (mass/volume)Ordered By: Herrera Bauman on 10-05-2023 Creatinine [Mass/Vol] 1.37 mg/dL 0.55-1.02 [facility] Serum or plasma urea nitroge n measurement (mass/volume)Ordered By: Herrera Bauman on 10-05-2023 Urea nitrogen [Mass/Vol] 44 mg/dL 7-18 [facility] Thin prep Papanicolaou smear with manual screeningOrdered By: Herrera Bauman on 10-05-2023 Thin prep Papanicolaou smear with manual screening 8 5-15 [facility] Thin prep Papanicolaou smear with manual screening 107 mg/dL 74-106 [facility] Absolute lymphocyte countOrd ered By: Herrera Bauman on 10-04-2023 Lymphocytes Auto (Unsp spec) [#/Vol] 1.52 10*3/uL 0.83-4.51 [facility] Automated lymphocyte count a s percentage of total leukocytesOrdered By: Herrera Bauman on 10-04-2023 Lymphocytes/100 WBC Auto (Unsp spec) 19.2 % 19-41 [facility] Bacteria identified Cx Nom ( U)Ordered By: Rolly Conrad on 10-04-2023 Culture, urine Mixed Gram Pos & Gra m Neg Org [facility] Basophil percentageOrdered B y: Herrera Bauman on 10-04-2023 Basophil percentage 10.2 g/dL 12.0-15.0 [facility] Basophils (Bld) [#/Vol] 7.9 10*3/uL 4.4-11.0 [facility] Basophils (Bld) [#/Vol] 4.9 10*3/uL 2.0-7.7 [facility] Basophils/100 WBC (Bld) 62.3 % 47-[address] [facility] Basophils/100 WBC (Bld) 10.8 % 0-[address] [facility] Basophils/100 WBC (Bld) 4.2 % 0-[address] [facility] Basophils/100 WBC (Bld) 0.6 % 0-[address] [facility] Basophil percentageOrdered B y: Rolly oCnrad on 10-04-2023 Basophil percentage 50-100 SEEN /hpf 0-5 [facility] Bilirubin Test strip Ql (U)O rdered By: Rolly Conrad on 10-04-2023 Bilirubin Ql (U) Negative Negative [facility] Determination of erythrocyte mean corpuscular volume (MCV)Ordered By: Herrera Bauman on 10-04-2023 MCV (RBC) [Entitic vol] 97.7 fL 81-[address] [facility] Erythrocyte distribution wid th ratioOrdered By: Herrera Bauman on 10-04-2023 Erythrocyte distribution width (RBC) [Ratio] 18.1 % 11.6-14.6 [facility] Erythrocyte distribution wid th standard deviationOrdered By: Herrera Bauman on 10-04-2023 Erythrocyte distribution width (RBC) [Entitic vol] 64.5 fL 35.1-43.9 [facility] Hematocrit Auto (Bld) [Volum e fraction]Ordered By: Herrera Bauman on 10-04-2023 Hematocrit (Bld) [Volume fraction] 33.4 % 37-47 [facility] Immature granulocytes/100 WB C Auto (Bld)Ordered By: Herrera Bauman on 10-04-2023 Immature granulocytes/100 WBC (Bld) 2.900 % 0.0-0.9 [facility] Ketones Test strip Ql (U)Ord ered By: Rolly Conrad on 10-04-2023 Ketones Ql (U) Negative Negative [facility] Mucus LM Ql (Urine sed)Order ed By: Rolly Conrad on 10-04-2023 Mucus Ql (Urine sed) 0 SEEN /hpf [facility] Nitrite Test strip Ql (U)Ord ered By: Rolly Conrad on 10-04-2023 Nitrite Ql (U) Negative Negative [facility] No Panel InformationOrdered By: Herrera Bauman on 10-04-2023 29.8 pg 27.0-32.0 [facility] 30.5 g/dL 32-36 [facility] 178 K/mm3 150-450 [facility] 10.4 fl 6.2-12.0 [facility] 0 % 0-5 [facility] No Panel InformationOrdered By: Rolly Conrad on 10-04-2023 10-25 SEEN /hpf 0-5 [facility] Protein Test strip Ql (U)Ord ered By: Rolly Conrad on 10-04-2023 Protein Ql (U) 30 mg/dl Negative [facility] RBC Auto (Bld) [#/Vol]Ordere d By: Herrera Bauman on 10-04-2023 RBC (Bld) [#/Vol] 3.42 10*6/uL 4.2-5.4 [facility] Squamous epithelial cells de tection in urine sediment by light microscopyOrdered By: Rolly Conrad on 10-04-2023 Epithelial cells.squamous LM Ql (Urine sed) 10-25 SEEN /hpf 5-10 [facility] Urine blood detectionOrdered By: Rolly Conrad on 10-04-2023 RBC Ql (U) 50 /ul Negative [facility] Urine clarityOrdered By: Anastasia Conrad on 10-04-2023 Clarity (U) Sl. Cloudy Clear [facility] Urine color determinationOrd ered By: Rolly Conrad on 10-04-2023 Color (U) Yellow Yellow [facility] Urine glucose detectionOrder ed By: Rolly Conrad on 10-04-2023 Glucose Ql (U) Normal mg/dl Normal [facility] Urine leukocyte esterase det ection by dipstickOrdered By: Rolly Conrad on 10-04-2023 Leukocyte esterase Test strip Ql (U) 500 /ul Negative [facility] Urine pHOrdered By: Rolly mcnamara on 10-04-2023 pH (U) 7.0 [pH] 5.0 - 8.0 [facility] Urine sediment bacteria coun t by microscopy (number/high power field)Ordered By: Rolly Conrad on 10-04-2023 Bacteria LM.HPF (Urine sed) [#/Area] 3 /[HPF] None Seen [facility] Urine specific gravity measu rementOrdered By: Rolly Conrad on 10-04-2023 Specific gravity (U) [Rel density] 1.010 1.002-1.03 0 [facility] Urine urobilinogen measureme ntOrdered By: Rolly Conrad on 10-04-2023 Urobilinogen Ql (U) Normal mg/dl Normal [facility] Respiratory pathogens detect ion panel by molecular detection methodOrdered By: Jorje Weems on 10-03-2023 Respiratory pathogens DNA and RNA panel JOSE+probe (Resp) [facility] Absolute lymphocyte countOrd ered By: Matthew Schuster on 10-02-2023 Lymphocytes Auto (Unsp spec) [#/Vol] 1.39 10*3/uL 0.83-4.51 [facility] Automated lymphocyte count a s percentage of total leukocytesOrdered By: Matthew Schuster on 10-02-2023 Lymphocytes/100 WBC Auto (Unsp spec) 17.8 % 19-41 [facility] Basophil percentageOrdered B y: Matthew Schuster on 10-02-2023 Basophil percentage 9.5 g/dL 12.0-15.0 [facility] Basophil percentage 155 mg/dL 74-106 [facility] Basophil percentage 141 mmol/L 136-145 [facility] Basophil percentage 4.3 mmol/L 3.5-5.1 [facility] Basophil percentage 105 mmol/L 98-107 [facility] Basophils (Bld) [#/Vol] 7.8 10*3/uL 4.4-11.0 [facility] Basophils (Bld) [#/Vol] 5.1 10*3/uL 2.0-7.7 [facility] Basophils/100 WBC (Bld) 65.2 % 47-[address] [facility] Basophils/100 WBC (Bld) 9.6 % 0-[address] [facility] Basophils/100 WBC (Bld) 4.0 % 0-[address] [facility] Basophils/100 WBC (Bld) 0.6 % 0-[address] [facility] Determination of erythrocyte mean corpuscular volume (MCV)Ordered By: Matthew Schuster on 10-02-2023 MCV (RBC) [Entitic vol] 99.4 fL 81-99 [facility] Erythrocyte distribution wid th ratioOrdered By: Matthew Schuster on 10-02-2023 Erythrocyte distribution width (RBC) [Ratio] 17.7 % 11.6-14.6 [facility] Erythrocyte distribution wid th standard deviationOrdered By: Matthew Schuster on 10-02-2023 Erythrocyte distribution width (RBC) [Entitic vol] 65.8 fL 35.1-43.9 [facility] Hematocrit Auto (Bld) [Volum e fraction]Ordered By: Matthew Schuster on 10-02-2023 Hematocrit (Bld) [Volume fraction] 31.4 % 37-47 [facility] Immature granulocytes/100 WB C Auto (Bld)Ordered By: Matthew Schuster on 10-02-2023 Immature granulocytes/100 WBC (Bld) 2.800 % 0.0-0.9 [facility] No Panel InformationOrdered By: Matthew Schuster on 10-02-2023 30.1 pg 27.0-32.0 [facility] 30.3 g/dL 32-36 [facility] 176 K/mm3 150-450 [facility] 10.4 fl 6.2-12.0 [facility] 0 % 0-5 [facility] 1+ [facility] 39 mL/min >60 [facility] 47 mL/min >60 [facility] 26.68 ml/min [facility] 39.4 RATIO 10-20 [facility] 17 pg/mL 3.0-54.0 [facility] 32.0 mmol/L 21.0-32.0 [facility] 43.1 pg/mL 0-100 [facility] RBC Auto (Bld) [#/Vol]Ordere d By: Matthew Schuster on 10-02-2023 RBC (Bld) [#/Vol] 3.16 10*6/uL 4.2-5.4 [facility] Serum or plasma calcium magalis urement (mass/volume)Ordered By: Matthew Schuster on 10-02-2023 Calcium [Mass/Vol] 8.1 mg/dL 8.5-10.1 [facility] Serum or plasma creatinine m easurement (mass/volume)Ordered By: Matthew Schuster on 10-02-2023 Creatinine [Mass/Vol] 1.37 mg/dL 0.55-1.02 [facility] Serum or plasma urea nitroge n measurement (mass/volume)Ordered By: Matthew Schuster on 10-02-2023 Urea nitrogen [Mass/Vol] 54 mg/dL 7-18 [facility] Thin prep Papanicolaou smear with manual screeningOrdered By: Matthew Schuster on 10-02-2023 Thin prep Papanicolaou smear with manual screening 4 5-15 [facility] Thin prep Papanicolaou smear with manual screeningOrdered By: Richy Pierson on 10-02-2023 Thin prep Papanicolaou smear with manual screening 96 mg/dL 74-106 [facility] Thin prep Papanicolaou smear with manual screeningOrdered By: Richy Pierson on 09-30-2023 Thin prep Papanicolaou smear with manual screening 119 mg/dL 74-106 [facility] Basophil percentageOrdered B y: Richy Pierson on 09-28-2023 Basophil percentage 100 mg/dL 74-106 [facility] Basophil percentage 139 mmol/L 136-145 [facility] Basophil percentage 4.1 mmol/L 3.5-5.1 [facility] Basophil percentage 99 mmol/L 98-107 [facility] No Panel InformationOrdered By: Richy Pierson on 09-28-2023 30 mL/min >60 [facility] 36 mL/min >60 [facility] 20.97 ml/min [facility] 28.7 RATIO 10-20 [facility] 37.0 mmol/L 21.0-32.0 [facility] Serum or plasma calcium magalis urement (mass/volume)Ordered By: Richy Pierson on 09-28-2023 Calcium [Mass/Vol] 8.0 mg/dL 8.5-10.1 [facility] Serum or plasma creatinine m easurement (mass/volume)Ordered By: Richy Pierson on 09-28-2023 Creatinine [Mass/Vol] 1.71 mg/dL 0.55-1.02 [facility] Serum or plasma urea nitroge n measurement (mass/volume)Ordered By: Richy Pierson on 09-28-2023 Urea nitrogen [Mass/Vol] 49 mg/dL 7-18 [facility] Thin prep Papanicolaou smear with manual screeningOrdered By: Richy Pierson on 09-28-2023 Thin prep Papanicolaou smear with manual screening 3 5-15 [facility] Absolute lymphocyte countOrd ered By: Richy Pierson on 09-27-2023 Lymphocytes Auto (Unsp spec) [#/Vol] 1.29 10*3/uL 0.83-4.51 [facility] Automated lymphocyte count a s percentage of total leukocytesOrdered By: Richy Pierson on 09-27-2023 Lymphocytes/100 WBC Auto (Unsp spec) 24.6 % 19-41 [facility] Basophil percentageOrdered B y: Richy Pierson on 09-27-2023 Basophil percentage 10.0 g/dL 12.0-15.0 [facility] Basophils (Bld) [#/Vol] 5.2 10*3/uL 4.4-11.0 [facility] Basophils (Bld) [#/Vol] 3.0 10*3/uL 2.0-7.7 [facility] Basophils/100 WBC (Bld) 56.2 % 47-[address] [facility] Basophils/100 WBC (Bld) 11.3 % 0-[address] [facility] Basophils/100 WBC (Bld) 4.2 % 0-[address] [facility] Basophils/100 WBC (Bld) 0.6 % 0-[address] [facility] Determination of erythrocyte mean corpuscular volume (MCV)Ordered By: Richy Pierson on 09-27-2023 MCV (RBC) [Entitic vol] 98.5 fL 81-[address] [facility] Erythrocyte distribution wid th ratioOrdered By: Richy Pierson on 09-27-2023 Erythrocyte distribution width (RBC) [Ratio] 17.9 % 11.6-14.6 [facility] Erythrocyte distribution wid th standard deviationOrdered By: Richy Pierson on 09-27-2023 Erythrocyte distribution width (RBC) [Entitic vol] 64.6 fL 35.1-43.9 [facility] Hematocrit Auto (Bld) [Volum e fraction]Ordered By: Richy Pierson on 09-27-2023 Hematocrit (Bld) [Volume fraction] 32.7 % 37-47 [facility] Immature granulocytes/100 WB C Auto (Bld)Ordered By: Richy Pierson on 09-27-2023 Immature granulocytes/100 WBC (Bld) 3.100 % 0.0-0.9 [facility] No Panel InformationOrdered By: Richy Pierson on 09-27-2023 30.1 pg 27.0-32.0 [facility] 30.6 g/dL 32-36 [facility] 181 K/mm3 150-450 [facility] 10.3 fl 6.2-12.0 [facility] 0 % 0-5 [facility] RBC Auto (Bld) [#/Vol]Ordere d By: Richy Pierson on 09-27-2023 RBC (Bld) [#/Vol] 3.32 10*6/uL 4.2-5.4 [facility] No Panel InformationOrdered By: Richy Pierson on 09-25-2023 106.1 pg/mL 0-100 [facility] CNPNon 09-19-2023 CNPN Telephone (AKURFL) STEFFDICK Perlita ([id number]) 1935 F Date Time Provider Department 09/19/23 SPENCER BOONE AKBANDAR During your visit today, we recorded the following information about you: Lien Hawkins 09/19/2023 8:44 AM Addendum Dick's daughter, Raimundo called to cancel her 09/[address] Boone. Dick has been in the hospital for 2 weeks and they don't know when she'll be discharge, but then she'll be going to rehab. They don't know when she'll be able to make an appt. Raimundo would like you to give her a call ([phone]) and go over the results of the US. Please advise. Thank you, Lien Hawkins Allergies As of Date: 09/19/2023 Noted Allergy Reaction AMLODIPINE 02/16/2016 7 - Swelling Comments: Lower leg edema. ASPIRIN 05/19/2005 16 - Unknown LISINOPRIL 09/06/2011 3 - Cough REQUIP (ROPINIROLE) 09/26/2007 14 - Other: See Comments Comments: Very anxious Date Reviewed: 09/02/2023 Reviewed by: Rosaura Suárez APRN.YARD CRANE OPERATOR - Fully Assessed Reason for Visit: Patient Update [1234] Prescriptions as of 09/21/2023 - albuterol HFA (VENTOLIN HFA) 90 mcg/actuation inhaler Inhale 2 Puffs as instructed every 4 hours as needed for wheezing/shortness of breath. May take 2 puffs prior to exercise - losartan (COZAAR) 50 mg tablet Take 0.5 tablets by mouth two times a day. - predniSONE (DELTASONE) 10 mg tablet Take 5 tabs every morning x 3 days, take 4 tabs every morning x 3 days, take 3 tabs every morning x 3 days, take 2 tabs every morning x 3 days, take 1 tab every morning x 3 days. - budesonide (PULMICORT) 0.5 mg/2 mL nebulizer solution USE 1 VIAL IN NEBULIZER EVERY 12 HOURS OVER 5-15 MINUTES - atorvastatin (LIPITOR) 40 mg tablet take 1 tablet daily - baclofen 5 mg tablet - clopidogrel (PLAVIX) 75 mg tablet take 1 tablet daily - furosemide (LASIX) 40 mg tablet Take 1 tablet by mouth once daily. - pramipexole (MIRAPEX) 1.5 mg tablet Take 1 tablet by mouth daily at bedtime. - ipratropium (ATROVENT) 0.02 % nebulizer solution Use 2.5 mL via nebulizer four times daily as needed. OVER 5-15 MINUTES FOR WHEEZING OR SHORTNESS OF BREATH - spironolactone (ALDACTONE) 50 mg tablet Take 1 tablet by mouth twice daily. - carvedilol (COREG) 12.5 mg tablet Take 12.5 mg by mouth twice daily. - ipratropium (ATROVENT) 0.02 % nebulizer solution USE 1 VIAL (2.5 ML) VIA NEBULIZER FOUR TIMES A DAY OVER 5 TO 15 MINUTES FOR WHEEZING OR SHORTNESS OF BREATH - albuterol (PROVENTIL) 2.5 mg /3 mL (0.083 %) nebulizer solution Use 3 mL via nebulizer four times daily. USE 1 VIAL (3 ML) VIA NEBULIZER FOUR TIMES A DAY OVER 5 TO 15 MINUTES FOR WHEEZING AND SHORTNESS OF BREATH - multivitamin with folic acid (THERA, ONE DAILY) 400 mcg Take by mouth. - Cholecalciferol, Vitamin D3, 1,000 unit cap Take 1 capsule by mouth once daily. 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] 05/24/2008 HTN (Hypertension), Benign [I10] 08/12/2009 Hypokalemia [E87.6] 08/12/2009 COPD (chronic obstructive pulmonary disease) [J*08/24/2010 S/P unilateral salpingo-oophorectomy [Z90.721] 02/18/2011 S/P WILFREDO (total abdominal hysterectomy) [Z90.710]02/18/2011 Hyperlipidemia [E78.5] 04/21/2011 Hypertension [I10] 04/21/2011 Vitamin D deficiency [E55.9] 03/06/2012 Nonspecific abnormal finding in stool contents *03/31/2012 Acute gastritis without mention of hemorrhage [*03/31/2012 Calculi, ureter [N20.1] 06/02/2012 HTN (hypertension) [I10] 12/11/2014 04/07/2015 Essential hypertension [I10] 04/07/2015 Mixed simple and mucopurulent chronic bronchiti*01/10/2016 Mixed hyperlipidemia [E78.2] 01/10/2016 Herpes zoster without complication [B02.9] 02/28/2016 Bifascicular block [I45.2] 10/11/2016 Obesity, Class I, BMI 30-34.9 [E66.9] 07/30/2018 CKD (chronic kidney disease) stage 3, GFR 30-59*07/30/2018 TIA (transient ischemic attack) [G45.9] 05/26/2020 Carotid artery stenosis [I65.29] 01/23/2021 PAD (peripheral artery disease) (HCC) [I73.9] 11/11/2021 Chronic bilateral thoracic back pain [M54.6, G8*04/04/2023 Lumbar pain [M54.50] 04/04/2023 Osteopenia of lumbar spine [M85.88] 05/23/2023 Encounter Status:Closed by LIEN HAWKINS on 09/21/23 [facility] Thin prep Papanicolaou smear with manual screeningOrdered By: Richy Pierson on 09-18-2023 Thin prep Papanicolaou smear with manual screening 143 mg/dL 74-106 [facility] Basophil percentageOrdered B y: Richy Pierson on 09-17-2023 Basophil percentage 10.4 g/dL 12.0-15.0 [facility] Hematocrit Auto (Bld) [Volum e fraction]Ordered By: Richy Pierson on 09-17-2023 Hematocrit (Bld) [Volume fraction] 33.2 % 37-47 [facility] Basophil percentageOrdered B y: Richy Pierson on 09-14-2023 Basophil percentage 157 mg/dL <200 [facility] Basophil percentage 149 mg/dL <199 [facility] CNPNon 09-14-2023 CNPN Telephone (AKURFL) DICK ARTIS ([id number]) 1935 F Date Time Provider Department 09/14/23 SPENCER BOONE During your visit today, we recorded the following information about you: Lien Hawkins 09/14/2023 12:38 PM Signed Dick Artis's daughter (Alina) called to inform Dr. Boone that Dick is in the hospital ([place]) and she won't be out in time for the appt for the US Kidney on Monday 09/18 at [facility]. She would like you to write an order for her mom to get the US of the Kidneys done in [facility]. Thank you, Sowmya Vick RN 09/15/2023 10:58 AM Signed Nurse called from [facility]. They will order and schedule. Sowmya Yoder RN Allergies As of Date: 09/14/2023 Noted Allergy Reaction AMLODIPINE 02/16/2016 7 - Swelling Comments: Lower leg edema. ASPIRIN 05/19/2005 16 - Unknown LISINOPRIL 09/06/2011 3 - Cough REQUIP (ROPINIROLE) 09/26/2007 14 - Other: See Comments Comments: Very anxious Date Reviewed: 09/02/2023 Reviewed by: Rosaura Suárez APRN.YARD CRANE OPERATOR - Fully Assessed Reason for Visit: Orders [681] Prescriptions as of 09/16/2023 - albuterol HFA (VENTOLIN HFA) 90 mcg/actuation inhaler Inhale 2 Puffs as instructed every 4 hours as needed for wheezing/shortness of breath. May take 2 puffs prior to exercise - losartan (COZAAR) 50 mg tablet Take 0.5 tablets by mouth two times a day. - predniSONE (DELTASONE) 10 mg tablet Take 5 tabs every morning x 3 days, take 4 tabs every morning x 3 days, take 3 tabs every morning x 3 days, take 2 tabs every morning x 3 days, take 1 tab every morning x 3 days. - budesonide (PULMICORT) 0.5 mg/2 mL nebulizer solution USE 1 VIAL IN NEBULIZER EVERY 12 HOURS OVER 5-15 MINUTES - atorvastatin (LIPITOR) 40 mg tablet take 1 tablet daily - baclofen 5 mg tablet - clopidogrel (PLAVIX) 75 mg tablet take 1 tablet daily - furosemide (LASIX) 40 mg tablet Take 1 tablet by mouth once daily. - pramipexole (MIRAPEX) 1.5 mg tablet Take 1 tablet by mouth daily at bedtime. - ipratropium (ATROVENT) 0.02 % nebulizer solution Use 2.5 mL via nebulizer four times daily as needed. OVER 5-15 MINUTES FOR WHEEZING OR SHORTNESS OF BREATH - spironolactone (ALDACTONE) 50 mg tablet Take 1 tablet by mouth twice daily. - carvedilol (COREG) 12.5 mg tablet Take 12.5 mg by mouth twice daily. - ipratropium (ATROVENT) 0.02 % nebulizer solution USE 1 VIAL (2.5 ML) VIA NEBULIZER FOUR TIMES A DAY OVER 5 TO 15 MINUTES FOR WHEEZING OR SHORTNESS OF BREATH - albuterol (PROVENTIL) 2.5 mg /3 mL (0.083 %) nebulizer solution Use 3 mL via nebulizer four times daily. USE 1 VIAL (3 ML) VIA NEBULIZER FOUR TIMES A DAY OVER 5 TO 15 MINUTES FOR WHEEZING AND SHORTNESS OF BREATH - multivitamin with folic acid (THERA, ONE DAILY) 400 mcg Take by mouth. - Cholecalciferol, Vitamin D3, 1,000 unit cap Take 1 capsule by mouth once daily. 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] 05/24/2008 HTN (Hypertension), Benign [I10] 08/12/2009 Hypokalemia [E87.6] 08/12/2009 COPD (chronic obstructive pulmonary disease) [J*08/24/2010 S/P unilateral salpingo-oophorectomy [Z90.721] 02/18/2011 S/P WILFREDO (total abdominal hysterectomy) [Z90.710]02/18/2011 Hyperlipidemia [E78.5] 04/21/2011 Hypertension [I10] 04/21/2011 Vitamin D deficiency [E55.9] 03/06/2012 Nonspecific abnormal finding in stool contents *03/31/2012 Acute gastritis without mention of hemorrhage [*03/31/2012 Calculi, ureter [N20.1] 06/02/2012 HTN (hypertension) [I10] 12/11/2014 04/07/2015 Essential hypertension [I10] 04/07/2015 Mixed simple and mucopurulent chronic bronchiti*01/10/2016 Mixed hyperlipidemia [E78.2] 01/10/2016 Herpes zoster without complication [B02.9] 02/28/2016 Bifascicular block [I45.2] 10/11/2016 Obesity, Class I, BMI 30-34.9 [E66.9] 07/30/2018 CKD (chronic kidney disease) stage 3, GFR 30-59*07/30/2018 TIA (transient ischemic attack) [G45.9] 05/26/2020 Carotid artery stenosis [I65.29] 01/23/2021 PAD (peripheral artery disease) (HCC) [I73.9] 11/11/2021 Chronic bilateral thoracic back pain [M54.6, G8*04/04/2023 Lumbar pain [M54.50] 04/04/2023 Osteopenia of lumbar spine [M85.88] 05/23/2023 Encounter Status:Closed by LIEN HAWKINS on 09/16/23 [facility] Lower GI hemoglobin IA Ql (S tl)Ordered By: Richy Pierson on 09-14-2023 Stool gastrointestinal hemoglobin detection by immunologic method Positive [facility] Stool gastrointestinal hemoglobin detection by immunologic method Positive [facility] No Panel InformationOrdered By: Richy Pierson on 09-14-2023 47 mg/dL >40 [facility] 80 mg/dL 0-130 [facility] 30 mg/dL 5-40 [facility] Serum or plasma calcitriol m easurement (mass/volume)Ordered By: Richy Pierson on 09-14-2023 1,25-dihydroxyvitamin D3 [Mass/Vol] 46.3 pg/mL 24.8-81.5 [facility] Thin prep Papanicolaou smear with manual screeningOrdered By: Richy Pierson on 09-14-2023 Thin prep Papanicolaou smear with manual screening 161 mg/dL 74-106 [facility] Thin prep Papanicolaou smear with manual screening 196 mg/dL 74-106 [facility] Whole blood hemoglobin A1c/t otal hemoglobin ratio (mass fraction)Ordered By: Richy Pierson on 09-14-2023 HbA1c (Bld) [Mass fraction] 7.2 % 3.8-5.6 [facility] Absolute lymphocyte countOrd ered By: Richy Pierson on 09-13-2023 Lymphocytes Auto (Unsp spec) [#/Vol] 0.52 10*3/uL 0.83-4.51 [facility] Basophil percentageOrdered B y: Richy Nunesok on 09-13-2023 Basophil percentage 6.9 g/dL 12.0-15.0 [facility] Basophil percentage Not Reportable [facility] Basophil percentage 129 mg/dL 74-106 [facility] Basophil percentage 142 mmol/L 136-145 [facility] Basophil percentage 3.5 mmol/L 3.5-5.1 [facility] Basophil percentage 107 mmol/L 98-107 [facility] Basophils (Bld) [#/Vol] 4.7 10*3/uL 4.4-11.0 [facility] Basophils (Bld) [#/Vol] 3.5 10*3/uL 2.0-7.7 [facility] Blood eosinophils/100 leukoc ytesOrdered By: Richy Dangelo on 09-13-2023 Eosinophils/100 WBC (Bld) 3 % 0-5 [facility] Blood lymphocytes/100 leukoc ytesOrdered By: [facility] Dangelo on 09-13-2023 Lymphocytes/100 WBC (Bld) 11 % 19-41 [facility] Blood monocytes/100 leukocyt esOrdered By: [facility] Monocytes/100 WBC (Bld) 7 % 0-10 [facility] Blood segmented neutrophils/ 100 leukocytesOrdered By: [facility] on 09-13-2023 Segmented neutrophils/100 WBC (Bld) 75 % 47-70 [facility] Determination of erythrocyte mean corpuscular volume (MCV)Ordered By: Richy Dangelo on 09-13-2023 MCV (RBC) [Entitic vol] 102.3 fL 81-[address] [facility] Erythrocyte distribution wid th ratioOrdered By: Richy Dangelo on 09-13-2023 Erythrocyte distribution width (RBC) [Ratio] 16.9 % 11.6-14.6 [facility] Erythrocyte distribution wid th standard deviationOrdered By: Richy Dangelo on 09-13-2023 Erythrocyte distribution width (RBC) [Entitic vol] 63.2 fL 35.1-43.9 [facility] Hematocrit Auto (Bld) [Volum e fraction]Ordered By: Richy Pierson on 09-13-2023 Hematocrit (Bld) [Volume fraction] 22.6 % 37-47 [facility] No Panel InformationOrdered By: Richy Pierson on 09-13-2023 31.2 pg 27.0-32.0 [facility] 30.5 g/dL 32-36 [facility] 149 K/mm3 150-450 [facility] 11.0 fl 6.2-12.0 [facility] 4 % 0-0 [facility] 45 mL/min >60 [facility] 55 mL/min >60 [facility] 30.66 ml/min [facility] 37.5 RATIO 10-20 [facility] 33.0 mmol/L 21.0-32.0 [facility] RBC Auto (Bld) [#/Vol]Ordere d By: Richy Pierson on 09-13-2023 RBC (Bld) [#/Vol] 2.21 10*6/uL 4.2-5.4 [facility] Review by pathologistOrdered By: Richy Pierson on 09-13-2023 Pathologist review Kan (Unsp spec) [Interp] Reviewed [facility] Serum or plasma calcium magalis urement (mass/volume)Ordered By: Richy Pierson on 09-13-2023 Calcium [Mass/Vol] 7.9 mg/dL 8.5-10.1 [facility] Serum or plasma creatinine m easurement (mass/volume)Ordered By: Richy Pierson on 09-13-2023 Creatinine [Mass/Vol] 1.20 mg/dL 0.55-1.02 [facility] Serum or plasma urea nitroge n measurement (mass/volume)Ordered By: Richy Pierson on 09-13-2023 Urea nitrogen [Mass/Vol] 45 mg/dL 7-18 [facility] Thin prep Papanicolaou smear with manual screeningOrdered By: Richy Pierson on 09-13-2023 Thin prep Papanicolaou smear with manual screening 2 5-15 [facility] Total cell countOrdered By: Richy Pierson on 09-13-2023 Cells counted [employer] (Bld/Tiss) [#] 100 MANUAL DIFF [facility] Basophil percentageOrdered B y: Erika Bell on 09-12-2023 Basophil percentage 82 mg/dL 74-106 [facility] Basophil percentage 2.5 mg/dL 2.5-4.9 [facility] Basophil percentage 142 mmol/L 136-145 [facility] Basophil percentage 4.4 mmol/L 3.5-5.1 [facility] Basophil percentage 112 mmol/L 98-107 [facility] No Panel InformationOrdered By: Erika Bell on 09-12-2023 54 mL/min >60 [facility] 65 mL/min >60 [facility] 35.68 ml/min [facility] 42.7 RATIO 10-20 [facility] 27.0 mmol/L 21.0-32.0 [facility] Serum or plasma calcium magalis urement (mass/volume)Ordered By: Erika Bell on 09-12-2023 Calcium [Mass/Vol] 8.7 mg/dL 8.5-10.1 [facility] Serum or plasma creatinine m easurement (mass/volume)Ordered By: Erika Bell on 09-12-2023 Creatinine [Mass/Vol] 1.03 mg/dL 0.55-1.02 [facility] Serum or plasma urea nitroge n measurement (mass/volume)Ordered By: Erika Bell on 09-12-2023 Urea nitrogen [Mass/Vol] 44 mg/dL 7-18 [facility] Thin prep Papanicolaou smear with manual screeningOrdered By: Juan Esteves on 09-12-2023 Thin prep Papanicolaou smear with manual screening 159 mg/dL 74-106 [facility] Thin prep Papanicolaou smear with manual screeningOrdered By: Erika Bell on 09-12-2023 Thin prep Papanicolaou smear with manual screening 1.6 g/dL 3.2-5.0 [facility] Absolute lymphocyte countOrd ered By: Juan Esteves on 09-11-2023 Lymphocytes Auto (Unsp spec) [#/Vol] 0.56 10*3/uL 0.83-4.51 [facility] Automated lymphocyte count a s percentage of total leukocytesOrdered By: Juan Esteves on 09-11-2023 Lymphocytes/100 WBC Auto (Unsp spec) 9.0 % 19-41 [facility] Basophil percentageOrdered B y: Juan Esteves on 09-11-2023 Basophil percentage 7.7 g/dL 12.0-15.0 [facility] Basophils (Bld) [#/Vol] 6.3 10*3/uL 4.4-11.0 [facility] Basophils (Bld) [#/Vol] 4.5 10*3/uL 2.0-7.7 [facility] Basophils/100 WBC (Bld) 72.1 % 47-[address] [facility] Basophils/100 WBC (Bld) 4.8 % 0-[address] [facility] Basophils/100 WBC (Bld) 2.9 % 0-[address] [facility] Basophils/100 WBC (Bld) 0.3 % 0-[address] [facility] Blood manual differential co mment interpretation (narrative result)Ordered By: Juan Esteves on 09-11-2023 Manual differential comment Kan (Bld) [Interp] SCANNED [facility] Determination of erythrocyte mean corpuscular volume (MCV)Ordered By: Juan Esteves on 09-11-2023 MCV (RBC) [Entitic vol] 104.7 fL 81-[address] [facility] Erythrocyte distribution wid th ratioOrdered By: Juan Esteves on 09-11-2023 Erythrocyte distribution width (RBC) [Ratio] 17.2 % 11.6-14.6 [facility] Erythrocyte distribution wid th standard deviationOrdered By: Juan Esteves on 09-11-2023 Erythrocyte distribution width (RBC) [Entitic vol] 65.4 fL 35.1-43.9 [facility] Hematocrit Auto (Bld) [Volum e fraction]Ordered By: Juan Esteves on 09-11-2023 Hematocrit (Bld) [Volume fraction] 24.7 % 37-47 [facility] Immature granulocytes/100 WB C Auto (Bld)Ordered By: Juan Esteves on 09-11-2023 Immature granulocytes/100 WBC (Bld) 10.900 % 0.0-0.9 [facility] No Panel InformationOrdered By: Juan Esteves on 09-11-2023 32.6 pg 27.0-32.0 [facility] 31.2 g/dL 32-36 [facility] 131 K/mm3 150-450 [facility] 10.6 fl 6.2-12.0 [facility] 0.5 % 0-5 [facility] 2+ [facility] RBC Auto (Bld) [#/Vol]Ordere d By: Juan Esteves on 09-11-2023 RBC (Bld) [#/Vol] 2.36 10*6/uL 4.2-5.4 [facility] Review by pathologistOrdered By: Juan Esteves on 09-11-2023 Pathologist review Kan (Unsp spec) [Interp] Reviewed [facility] Thin prep Papanicolaou smear with manual screeningOrdered By: Juan Esteves on 09-11-2023 Thin prep Papanicolaou smear with manual screening 2 5-15 [facility] Blood band neutrophil count as percentage of total leukocytesOrdered By: Juan Esteves on 09-10-2023 Band form neutrophils/100 WBC (Bld) 1 % 0-5 [facility] Blood eosinophils/100 leukoc ytesOrdered By: Juan Esteves on 09-10-2023 Eosinophils/100 WBC (Bld) 3 % 0-5 [facility] Blood lymphocytes/100 leukoc ytesOrdered By: Juan Esteves on 09-10-2023 Lymphocytes/100 WBC (Bld) 18 % 19-41 [facility] Blood metamyelocytes/100 roberto kocytesOrdered By: Juan Esteves on 09-10-2023 Metamyelocytes/100 WBC (Bld) 1 % 0-1 [facility] Blood monocytes/100 leukocyt esOrdered By: Juan Esteves on 09-10-2023 Monocytes/100 WBC (Bld) 3 % 0-10 [facility] Blood platelet adequacy dete ction by light microscopyOrdered By: Juan Esteves on 09-10-2023 Platelets LM Ql (Bld) SLT DEC ADEQ [facility] Blood segmented neutrophils/ 100 leukocytesOrdered By: Juan Esteves on 09-10-2023 Segmented neutrophils/100 WBC (Bld) 72 % 47-70 [facility] Hypochromatic red blood cell detectionOrdered By: Juan Esteves on 09-10-2023 Hypochromia Ql (Bld) 2+ [facility] No Panel InformationOrdered By: Juan Esteves on 09-10-2023 2 % 0-0 [facility] RBC morphologyOrdered By: Norma Esteves on 09-10-2023 RBC morphology finding Nom (Bld) N CYTIC NORMAL NORM C&C [facility] Total cell countOrdered By: Juan Esteves on 09-10-2023 Cells counted Molgen (Bld/Tiss) [#] 100 MANUAL DIFF [facility] Blood vacuolated neutrophils detection by light microscopyOrdered By: Juan Esteves on 09-09-2023 Neutrophils.vacuolated LM Ql (Bld) 1+ [facility] No Panel InformationOrdered By: Juan Esteves on 09-09-2023 696 pg/mL 211-911 [facility] 17.30 ng/mL 3.1-55.4 [facility] 1 % 0-5 [facility] Stool gastrointestinal hemog lobin detection by immunologic methodOrdered By: Juan Esteves on 09-09-2023 Lower GI hemoglobin IA Ql (Stl) [facility] Lower GI hemoglobin IA Ql (Stl) [facility] Thin prep Papanicolaou smear with manual screeningOrdered By: Juan Esteves on 09-08-2023 Thin prep Papanicolaou smear with manual screening 3+ [facility] Basophil percentageOrdered B y: Varsha Armstrong on 09-07-2023 Basophil percentage 0 SEEN /hpf 0-5 [facility] Bilirubin Test strip Ql (U)O rdered By: Varsha Armstrong on 09-07-2023 Bilirubin Ql (U) Negative Negative [facility] Ketones Test strip Ql (U)Ord ered By: Varsha Armstrong on 09-07-2023 Ketones Ql (U) Negative Negative [facility] Mucus LM Ql (Urine sed)Order ed By: Varsha Armstrong on 09-07-2023 Mucus Ql (Urine sed) 0 SEEN /hpf [facility] Nitrite Test strip Ql (U)Ord ered By: Vasrha Armstrong on 09-07-2023 Nitrite Ql (U) Negative Negative [facility] No Panel InformationOrdered By: Varsha Armstrong on 09-07-2023 5-10 SEEN /hpf 0-5 [facility] Protein Test strip Ql (U)Ord ered By: Varsha Armstrong on 09-07-2023 Protein Ql (U) 30 mg/dl Negative [facility] Squamous epithelial cells de tection in urine sediment by light microscopyOrdered By: Varsha Armstrong on 09-07-2023 Epithelial cells.squamous LM Ql (Urine sed) 0 SEEN /hpf 5-10 [facility] Urine Legionella pneumophila antigen detectionOrdered By: Juan Esteves on 09-07-2023 L. pneumophila Ag Ql (U) [facility] L. pneumophila Ag Ql (U) [facility] Urine blood detectionOrdered By: Varsha Armstrong on 09-07-2023 RBC Ql (U) 25 /ul Negative [facility] Urine clarityOrdered By: Lukas Armstrong on 09-07-2023 Clarity (U) Clear Clear [facility] Urine color determinationOrd ered By: Varsha Armstrong on 09-07-2023 Color (U) Yellow Yellow [facility] Urine glucose detectionOrder ed By: Varsha Armstrong on 09-07-2023 Glucose Ql (U) Normal mg/dl Normal [facility] Urine leukocyte esterase det ection by dipstickOrdered By: Varsha Armstrong on 09-07-2023 Leukocyte esterase Test strip Ql (U) 25 /ul Negative [facility] Urine pHOrdered By: Varsha Armstrong on 09-07-2023 pH (U) 6.0 [pH] 5.0 - 8.0 [facility] Urine sediment bacteria coun t by microscopy (number/high power field)Ordered By: Varsha Armstrong on 09-07-2023 Bacteria LM.HPF (Urine sed) [#/Area] 0 /[HPF] None Seen [facility] Urine specific gravity measu rementOrdered By: Varsha Armstrong on 09-07-2023 Specific gravity (U) [Rel density] 1.015 1.002-1.03 0 [facility] Urine urobilinogen measureme ntOrdered By: Varsha Nathaniel on 09-07-2023 Urobilinogen Ql (U) Normal mg/dl Normal [facility] Assessment of wrist artery p atency prior to arterial punctureOrdered By: Juan Esteves on 09-06-2023 Arterial patency Wrist artery --pre arterial puncture Positive [facility] Base excessOrdered By: Jb Esteves on 09-06-2023 Base excess Calc (BldV) [Moles/Vol] 1 mmol/L -2-2 [facility] Basophil percentageOrdered B y: Juan Esteves on 09-06-2023 Basophil percentage 28 mmol/L [facility] Basophils/100 WBC (Bld) 92 % 95-[address] [facility] Measurement, pHOrdered By: Clayton Esteves on 09-06-2023 pH (Unsp spec) 7.33 [pH] 7.35-7.45 [facility] No Panel InformationOrdered By: Juan Esteves on 09-06-2023 ART [facility] R Radial [facility] Not entered [facility] Cannula [facility] 7.0 [facility] 51.2 mmHg 35-45 [facility] 69 mmHG 75-100 [facility] 26.8 mmol/L 22-26 [facility] Negative Negative [facility] No growth in 5 days. [facility] No growth in 5 days. [facility] Respiratory pathogens DNA an d RNA panel JOSE+probe (Resp)Ordered By: Juan Esteves on 09-06-2023 Respiratory pathogens detection panel by molecular detection method Influenza A (Subtype H3) [facility] Respiratory pathogens detection panel by molecular detection method Influenza A (Subtype H3) [facility] Absolute lymphocyte countOrd ered By: Matthew Schuster on 09-03-2023 Lymphocytes Auto (Unsp spec) [#/Vol] 0.99 10*3/uL 0.83-4.51 [facility] Automated lymphocyte count a s percentage of total leukocytesOrdered By: Matthew Schuster on 09-03-2023 Lymphocytes/100 WBC Auto (Unsp spec) 11.8 % 19-41 [facility] Basophil percentageOrdered B y: Matthew Schuster on 09-03-2023 Basophils/100 WBC (Bld) 0.2 % 0-[address] [facility] Chloride [Moles/Vol] 107 mmol/L 98-107 [facility] Eosinophils/100 WBC (Bld) 1.7 % 0-5 [facility] Glucose [Mass/Vol] 184 mg/dL 74-106 [facility] Comment on above: Fasting Glucose resu lt greater than or equal to 126 mg/dL suggests DIABETES MELLITUS per A.D.A. criteria. Hemoglobin (Bld) [Mass/Vol] 10.2 g/dL 12.0-15. 0 [facility] Monocytes/100 WBC (Bld) 6.5 % 0-[address] [facility] Neutrophils (Bld) [#/Vol] 6.6 10*3/uL 2.0-7.7 [facility] Neutrophils/100 WBC (Bld) 78.5 % 47-70 [facility] Potassium [Moles/Vol] 4.8 mmol/L 3.5-5.1 [facility] Sodium [Moles/Vol] 140 mmol/L 136-145 [facility] WBC (Bld) [#/Vol] 8.4 10*3/uL 4.4-11.0 [facility] Determination of erythrocyte mean corpuscular volume (MCV)Ordered By: Matthew Schuster on 09-03-2023 MCV (RBC) [Entitic vol] 98.2 fL 81-[address] [facility] Erythrocyte distribution wid th ratioOrdered By: Matthew Schuster on 09-03-2023 Erythrocyte distribution width (RBC) [Ratio] 16.4 % 11.6-14.6 [facility] Erythrocyte distribution wid th standard deviationOrdered By: Matthew Schuster on 09-03-2023 Erythrocyte distribution width (RBC) [Entitic vol] 59.6 fL 35.1-43.9 [facility] Hematocrit Auto (Bld) [Volum e fraction]Ordered By: Matthew Schuster on 09-03-2023 Hematocrit (Bld) [Volume fraction] 32.3 % 37-47 [facility] Immature granulocytes/100 WB C Auto (Bld)Ordered By: Matthew Schuster on 09-03-2023 Immature granulocytes/100 WBC (Bld) 1.300 % 0.0-0.9 [facility] Comment on above: IG% - Immature Granu locytes (promyelocytes, myelocytes and metamyelocytes) > 1% indicates that a LEFT SHIFT is Present. Laboratory - Chemistry and C hemistry - challengeOrdered By: Matthew Schuster on 09-03-2023 CO2 [Moles/Vol] 31.0 mmol/L 21.0-32.0 [facility] Natriuretic peptide B (Bld) [Mass/Vol] 210.1 pg/mL 0-100 [facility] Urea nitrogen/Creatinine [Mass ratio] 43.9 mg/mg 10-20 [facility] Laboratory - Hematology and Cell countsOrdered By: Matthew Schuster on 09-03-2023 MCH (RBC) [Entitic mass] 31.0 pg 27.0-32.0 [facility] MCHC (RBC) [Mass/Vol] 31.6 g/dL 32-36 [facility] Nucleated RBC/100 WBC (Bld) [Ratio] 0 % 0-5 [facility] Platelet mean volume (Bld) [Entitic vol] 10.5 fL 6.2-12.0 [facility] Platelets (Bld) [#/Vol] 183 10*3/uL 150-450 [facility] No Panel InformationOrdered By: Noble Reynolds on 09-03-2023 1161 pg/mL 3.0-54.0 [facility] No Panel InformationOrdered By: Matthew Schuster on 09-03-2023 Estimated Creatinine Clearance Calc 30.31 ml/min [facility] Estimated GFR (MDRD) Amer 53 mL/min >60 [facility] Comment on above: GFR Calc Estimated GFR (MDRD) Non-Af Amer 44 mL/min >60 [facility] Comment on above: Non- GFR Calc Troponin I High Sensitivity 1220 pg/mL 3.0-54.0 [facility] Comment on above: Critical Result(s) C alled at: 12:08:38 09/03/2023 by: Onesimo Sheridan. Michael Caballero RN (ER). Results read back by same. Please Note: New Test Units and Gender Specific Reference Ranges. For more information see Policy Stat Procedure [place] High Sensitivity Troponin (TNIH) and attachments. 210.1 pg/mL 0-100 [facility] RBC Auto (Bld) [#/Vol]Ordere d By: Matthew Schuster on 09-03-2023 RBC (Bld) [#/Vol] 3.29 10*6/uL 4.2-5.4 [facility] Serum or plasma calcium magalis urement (mass/volume)Ordered By: Matthew Schuster on 09-03-2023 Calcium [Mass/Vol] 9.3 mg/dL 8.5-10.1 [facility] Serum or plasma creatinine m easurement (mass/volume)Ordered By: Matthew Schuster on 09-03-2023 Creatinine [Mass/Vol] 1.23 mg/dL 0.55-1.02 [facility] Comment on above: The validity of the calculated GFR & GFRAA in patients over 70 years has not been determined. Clinical correlation is essential. Serum or plasma urea nitroge n measurement (mass/volume)Ordered By: Matthew Schuster on 09-03-2023 Urea nitrogen [Mass/Vol] 54 mg/dL 7-18 [facility] Thin prep Papanicolaou smear with manual screeningOrdered By: Matthew Schuster on 09-03-2023 Thin prep Papanicolaou smear with manual screening 2 5-15 [facility] XR Chest PA and Lateralon IMPRESSION: Interstitial prominence. Minimal atelectasis or fibrosis at both lung bases 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: JANE Transcribe Date/Time: Sep 02 2023 2:34P Dictated by : COLBY PUCKETT MD This examination was interpreted and the report reviewed and electronically signed by: COLBY PUCKETT MD on Sep 02 2023 2:35PM [facility] DIVISION OF RADIOLOGY * * *Final Report* * * DATE OF EXAM: Sep 02 2023 9:21AM WOX [id number] - XR CHEST 2V FRONTAL/LAT / PROCEDURE REASON: multiple diagnoses * * * * Physician Interpretation * * * * EXAMINATION: CHEST RADIOGRAPH (2 VIEW FRONTAL & LATERAL) CLINICAL HISTORY: Exercise-induced asthma Chronic obstructive pulmonary disease with acute exacerbation (HCC) MQ: XC2_6 EXAM DATE/TIME: 09/02/2023 9:21 AM COMPARISON: 07/14/2023 RESULT: Lines, tubes, and devices: None. Lungs and pleura: No consolidation. No lung mass. No pleural effusion. No pneumothorax. Mild prominence of the interstitial markings is most pronounced at the lung bases. Minimal atelectasis or fibrosis at both lung bases. Cardiomediastinal silhouette: Normal cardiomediastinal silhouette. Bones and soft tissues: Stable mild wedging of upper lumbar vertebra. DIVISION OF RADIOLOGY Provider, [facility] - 09/02/2023 * * *Final Report* * * DATE OF EXAM: Sep 02 2023 9:21AM WOX [id number] - XR CHEST 2V FRONTAL/LAT / PROCEDURE REASON: multiple diagnoses * * * * Physician Interpretation * * * * EXAMINATION: CHEST RADIOGRAPH (2 VIEW FRONTAL & LATERAL) CLINICAL HISTORY: Exercise-induced asthma Chronic obstructive pulmonary disease with acute exacerbation (HCC) MQ: XC2_6 EXAM DATE/TIME: 09/02/2023 9:21 AM COMPARISON: 07/14/2023 RESULT: Lines, tubes, and devices: None. Lungs and pleura: No consolidation. No lung mass. No pleural effusion. No pneumothorax. Mild prominence of the interstitial markings is most pronounced at the lung bases. Minimal atelectasis or fibrosis at both lung bases. Cardiomediastinal silhouette: Normal cardiomediastinal silhouette. Bones and soft tissues: Stable mild wedging of upper lumbar vertebra. IMPRESSION IMPRESSION: Interstitial prominence. Minimal atelectasis or fibrosis at both lung bases 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: JANE Transcribe Date/Time: Sep 02 2023 2:34P Dictated by : COLBY PUCKETT MD This examination was interpreted and the report reviewed and electronically signed by: COLBY PUCKETT MD on Sep 02 2023 2:35PM EST [facility] Radiology Study observation (narrative) [facility] XR Chest PA and LateralOrder ed By: [facility] Provider on 09-02-2023 [facility] Absolute lymphocyte countOrd ered By: Yenny Abdul on 08-19-2023 Lymphocytes Auto (Unsp spec) [#/Vol] 0.72 10*3/uL 0.83-4.51 [facility] Automated lymphocyte count a s percentage of total leukocytesOrdered By: Yenny Abdul on 08-19-2023 Lymphocytes/100 WBC Auto (Unsp spec) 14.9 % 19-41 [facility] Basophil percentageOrdered B y: Yenny Abdul on 08-19-2023 Basophil percentage 9.2 g/dL 12.0-15.0 [facility] Basophil percentage 173 mg/dL 74-106 [facility] Basophil percentage 6.2 g/dL 6.4-8.2 [facility] Basophil percentage 0.40 mg/dL 0.20-1.00 [facility] Basophil percentage 139 mmol/L 136-145 [facility] Basophil percentage 3.7 mmol/L 3.5-5.1 [facility] Basophil percentage 108 mmol/L 98-107 [facility] Basophils (Bld) [#/Vol] 4.8 10*3/uL 4.4-11.0 [facility] Basophils (Bld) [#/Vol] 3.7 10*3/uL 2.0-7.7 [facility] Basophils/100 WBC (Bld) 0.2 % 0-[address] [facility] Basophils/100 WBC (Bld) 75.9 % 47-[address] [facility] Basophils/100 WBC (Bld) 4.6 % 0-[address] [facility] Basophils/100 WBC (Bld) 0.0 % 0-5 [facility] Bilirubin [Mass/Vol] 0.40 mg/dL 0.20-1.00 [facility] Comment on above: For patients on eltr ombopag therapy, use of Dimension [place] TBIL is not recommended. Chloride [Moles/Vol] 108 mmol/L 98-107 [facility] Eosinophils/100 WBC (Bld) 0.0 % 0-5 [facility] Glucose [Mass/Vol] 173 mg/dL 74-106 [facility] Comment on above: Fasting Glucose resu lt greater than or equal to 126 mg/dL suggests DIABETES MELLITUS per A.D.A. criteria. Hemoglobin (Bld) [Mass/Vol] 9.2 g/dL 12.0-15. 0 [facility] Monocytes/100 WBC (Bld) 4.6 % 0-[address] [facility] Neutrophils (Bld) [#/Vol] 3.7 10*3/uL 2.0-7.7 [facility] Neutrophils/100 WBC (Bld) 75.9 % 47-70 [facility] Potassium [Moles/Vol] 3.7 mmol/L 3.5-5.1 [facility] Protein [Mass/Vol] 6.2 g/dL 6.4-8.2 [facility] Sodium [Moles/Vol] 139 mmol/L 136-145 [facility] WBC (Bld) [#/Vol] 4.8 10*3/uL 4.4-11.0 [facility] Determination of erythrocyte mean corpuscular volume (MCV)Ordered By: Yenny Abdul on 08-19-2023 MCV (RBC) [Entitic vol] 99.3 fL 81-[address] [facility] Erythrocyte distribution wid th ratioOrdered By: Yenny Abdul on 08-19-2023 Erythrocyte distribution width (RBC) [Ratio] 15.2 % 11.6-14.6 [facility] Erythrocyte distribution wid th standard deviationOrdered By: Yenny Abdul on 08-19-2023 Erythrocyte distribution width (RBC) [Entitic vol] 54.7 fL 35.1-43.9 [facility] Hematocrit Auto (Bld) [Volum e fraction]Ordered By: Yenny Abdul on 08-19-2023 Hematocrit (Bld) [Volume fraction] 29.4 % 37-47 [facility] Immature granulocytes/100 WB C Auto (Bld)Ordered By: Yenny Abdul on 08-19-2023 Immature granulocytes/100 WBC (Bld) 4.400 % 0.0-0.9 [facility] Comment on above: IG% - Immature Granu locytes (promyelocytes, myelocytes and metamyelocytes) > 1% indicates that a LEFT SHIFT is Present. Iron measurement (mass/mass) Ordered By: Yenny Abdul on 08-19-2023 Iron (Unsp spec) [Mass/Mass] 95 ug/dL 50-170 [facility] Laboratory - Chemistry and C hemistry - challengeOrdered By: Yenny Abdul on 08-19-2023 Albumin/Globulin [Mass ratio] 0.6 {ratio} 0.9-2.4 [facility] ALP [Catalytic activity/Vol] 61 U/L 45-117 [facility] ALT [Catalytic activity/Vol] 23 U/L 13-56 [facility] CO2 [Moles/Vol] 27.0 mmol/L 21.0-32.0 [facility] Cobalamin (Vitamin B12) [Mass/Vol] 722 pg/mL 211-911 [facility] Ferritin [Mass/Vol] 640 ng/mL 8-252 [facility] Globulin (S) [Mass/Vol] 4.0 g/dL 2.2-4.[address] [facility] Magnesium [Mass/Vol] 1.7 mg/dL 1.6-2.6 [facility] Urea nitrogen/Creatinine [Mass ratio] 37.3 mg/mg 10-20 [facility] Laboratory - Hematology and Cell countsOrdered By: Yenny Abdul on 08-19-2023 MCH (RBC) [Entitic mass] 31.1 pg 27.0-32.0 [facility] MCHC (RBC) [Mass/Vol] 31.3 g/dL 32-36 [facility] Nucleated RBC/100 WBC (Bld) [Ratio] 0 % 0-5 [facility] Platelets (Bld) [#/Vol] 216 10*3/uL 150-450 [facility] No Panel InformationOrdered By: Yenny Abdul on 08-19-2023 Estimated Creatinine Clearance Calc 29.12 ml/min [facility] Estimated GFR (MDRD) Amer 52 mL/min >60 [facility] Comment on above: GFR Calc Estimated GFR (MDRD) Non-Af Amer 43 mL/min >60 [facility] Comment on above: Non- GFR Calc Folate 32.00 ng/mL 3.1-55.4 [facility] Total Iron Binding Capacity 180 ug/dL 250-450 [facility] 31.1 pg 27.0-32.0 [facility] 31.3 g/dL 32-36 [facility] 216 K/mm3 150-450 [facility] 0 % 0-5 [facility] 43 mL/min >60 [facility] 52 mL/min >60 [facility] 29.12 ml/min [facility] 37.3 RATIO 10-20 [facility] 4.0 g/dL 2.2-4.2 [facility] 0.6 RATIO 0.9-2.4 [facility] 61 U/L 45-117 [facility] 23 U/L 13-56 [facility] 1.7 mg/dL 1.6-2.6 [facility] 27.0 mmol/L 21.0-32.0 [facility] 722 pg/mL 211-911 [facility] 180 ug/dL 250-450 [facility] 640 ng/mL 8-252 [facility] 32.00 ng/mL 3.1-55.4 [facility] Streptococcus pneumoniae Antigen (M [facility] Platelet mean volume Goldy-Ec ker (Bld) [Entitic vol]Ordered By: Yenny Abdul on 08-19-2023 Platelet mean volume (Bld) [Entitic vol] 9.9 fL 6.2-12.0 [facility] RBC Auto (Bld) [#/Vol]Ordere d By: Yenny Abdul on 08-19-2023 RBC (Bld) [#/Vol] 2.96 10*6/uL 4.2-5.4 [facility] Serum or plasma calcium magalis urement (mass/volume)Ordered By: Yenny Abdul on 08-19-2023 Calcium [Mass/Vol] 8.9 mg/dL 8.5-10.1 [facility] Serum or plasma creatinine m easurement (mass/volume)Ordered By: Yenny Abdul on 08-19-2023 Creatinine [Mass/Vol] 1.26 mg/dL 0.55-1.02 [facility] Comment on above: The validity of the calculated GFR & GFRAA in patients over 70 years has not been determined. Clinical correlation is essential. Serum or plasma iron saturat ion measurement (mass fraction)Ordered By: Yenny Abdul on 08-19-2023 Iron saturation [Mass fraction] 52.8 % 15.0-55.0 [facility] Serum or plasma thyroid stim ulating hormone (TSH) measurement (units/volume)Ordered By: Yenny Abdul on 08-19-2023 TSH Qn 0.23 uIU/mL 0.358-3.74 [facility] Serum or plasma urea nitroge n measurement (mass/volume)Ordered By: Yenny Abdul on 08-19-2023 Urea nitrogen [Mass/Vol] 47 mg/dL 7-18 [facility] Thin prep Papanicolaou smear with manual screeningOrdered By: Yenny Abdul on 08-19-2023 Thin prep Papanicolaou smear with manual screening 2.2 g/dL 3.2-5.0 [facility] Thin prep Papanicolaou smear with manual screening 21 U/L 15-37 [facility] Thin prep Papanicolaou smear with manual screening 4 5-15 [facility] Urine Legionella pneumophila antigen detectionOrdered By: Yenny Abdul on 08-19-2023 L. pneumophila Ag Ql (U) [facility] Absolute lymphocyte countOrd ered By: Rolly Edmondson on 08-18-2023 Lymphocytes Auto (Unsp spec) [#/Vol] 0.78 10*3/uL 0.83-4.51 [facility] Automated lymphocyte count a s percentage of total leukocytesOrdered By: Rolly Edmondson on 08-18-2023 Lymphocytes/100 WBC Auto (Unsp spec) 11.9 % 19-41 [facility] Basophil percentageOrdered B y: Yenny Abdul on 08-18-2023 Basophil percentage 1.6 mmol/L 0.4-2.0 [facility] Basophil percentage 267 U/L 84-246 [facility] Lactate [Moles/Vol] 1.6 mmol/L 0.4-2.0 [facility] LDH [Catalytic activity/Vol] 267 U/L 84-246 [facility] Basophil percentageOrdered B y: Rolly Edmondson on 08-18-2023 Basophils/100 WBC (Bld) 0.6 % 0-1 [facility] Chloride [Moles/Vol] 109 mmol/L 98-107 [facility] Eosinophils/100 WBC (Bld) 1.8 % 0-5 [facility] Glucose [Mass/Vol] 155 mg/dL 74-106 [facility] Comment on above: Fasting Glucose resu lt greater than or equal to 126 mg/dL suggests DIABETES MELLITUS per A.D.A. criteria. Hemoglobin (Bld) [Mass/Vol] 10.2 g/dL 12.0-15. 0 [facility] Monocytes/100 WBC (Bld) 6.0 % 0-[address] [facility] Neutrophils (Bld) [#/Vol] 5.0 10*3/uL 2.0-7.7 [facility] Neutrophils/100 WBC (Bld) 76.5 % 47-70 [facility] Potassium [Moles/Vol] 3.5 mmol/L 3.5-5.1 [facility] Sodium [Moles/Vol] 145 mmol/L 136-145 [facility] WBC (Bld) [#/Vol] 6.6 10*3/uL 4.4-11.0 [facility] Determination of erythrocyte mean corpuscular volume (MCV)Ordered By: Rolly Edmondson on 08-18-2023 MCV (RBC) [Entitic vol] 101.5 fL 81-[address] [facility] Erythrocyte distribution wid th ratioOrdered By: Rolly Edmondson on 08-18-2023 Erythrocyte distribution width (RBC) [Ratio] 15.6 % 11.6-14.6 [facility] Erythrocyte distribution wid th standard deviationOrdered By: Rolly Edmondson on 08-18-2023 Erythrocyte distribution width (RBC) [Entitic vol] 58.0 fL 35.1-43.9 [facility] Hematocrit Auto (Bld) [Volum e fraction]Ordered By: Rolly Edmondson on 08-18-2023 Hematocrit (Bld) [Volume fraction] 33.2 % 37-47 [facility] Immature granulocytes/100 WB C Auto (Bld)Ordered By: Rolly Edmondson on 08-18-2023 Immature granulocytes/100 WBC (Bld) 3.200 % 0.0-0.9 [facility] Comment on above: IG% - Immature Granu locytes (promyelocytes, myelocytes and metamyelocytes) > 1% indicates that a LEFT SHIFT is Present. International normalized rat io (INR) calculationOrdered By: Yenny Abdul on 08-18-2023 INR Coag (PPP) [Relative time] 1.1 {INR} [facility] Laboratory - Chemistry and C hemistry - challengeOrdered By: Yenny Abdul on 08-18-2023 CK [Catalytic activity/Vol] 18 U/L 26-192 [facility] Laboratory - Chemistry and C hemistry - challengeOrdered By: Rolly Edmondson on 08-18-2023 CO2 [Moles/Vol] 31.0 mmol/L 21.0-32.0 [facility] Natriuretic peptide B (Bld) [Mass/Vol] 149.2 pg/mL 0-100 [facility] Urea nitrogen/Creatinine [Mass ratio] 27.6 mg/mg 10-20 [facility] Laboratory - CoagulationOrde red By: Yenny Abdul on 08-18-2023 PT Coag (PPP) [Time] 14.6 s 11.7-14.9 [facility] - Hematology and Cell countsOrdered By: Rolly Edmondson on 08-18-2023 MCH (RBC) [Entitic mass] 31.2 pg 27.0-32.0 [facility] MCHC (RBC) [Mass/Vol] 30.7 g/dL 32-36 [facility] Nucleated RBC/100 WBC (Bld) [Ratio] 0.3 % 0-5 [facility] Platelets (Bld) [#/Vol] 236 10*3/uL 150-450 [facility] - Microbiology an d Antimicrobial susceptibilityOrdered By: Rolly Edmondson on 08-18-2023 SARS-CoV-2 (COVID-19) RNA JOSE+probe Ql (Unsp spec) SARS-CoV-2 (COVID 19 PCR) [facility] No Panel InformationOrdered By: Yenny Abdul on 08-18-2023 C-Reactive Protein Extended Range 85.90 mg/L 0.0-3.0 [facility] Comment on above: C-Reactive Protein ( CRP) provides useful information for thediagnosis, therapy and monitoring of inflammatory processesand associated diseases. For the evaluation of Relative Riskfor Cardiovascular Disease, a High Sensitivity CRP (HSCRP)should be ordered. D-Dimer Quantitative (PE/DVT) < 0.27 FEU/ug/m 0.27-0.49 [facility] Comment on above: NORMAL D-Dimer level (<0.50) indicates no DVT or PE. Fibrinogen 651 mg/dl [facility] 14.6 SECONDS 11.7-14.9 [facility] 651 mg/dl -44 [facility] < 0.27 FEU/ug/m 0.27-0.49 [facility] 18 U/L 26-192 [facility] 85.90 mg/L 0.0-3.0 [facility] No Panel InformationOrdered By: Rolly Edmondson on 08-18-2023 Estimated GFR (MDRD) Amer 41 mL/min >60 [facility] Comment on above: GFR Calc Estimated GFR (MDRD) Non-Af Amer 34 mL/min >60 [facility] Comment on above: Non- GFR Calc Troponin I High Sensitivity 45 pg/mL 3.0-54.0 [facility] Comment on above: Please Note: New Anjali t Units and Gender Specific Reference Ranges. For more information see Policy Stat Procedure [place] High Sensitivity Troponin (TNIH) and attachments. 45 pg/mL 3.0-54.0 [facility] 149.2 pg/mL 0-100 [facility] Platelet mean volume Goldy-Ec ker (Bld) [Entitic vol]Ordered By: Rolly Edmondson on 08-18-2023 Platelet mean volume (Bld) [Entitic vol] 10.0 fL 6.2-12.0 [facility] RBC Auto (Bld) [#/Vol]Ordere d By: Rolly Edmondson on 08-18-2023 RBC (Bld) [#/Vol] 3.27 10*6/uL 4.2-5.4 [facility] Respiratory pathogens detect ion panel by molecular detection methodOrdered By: Yenny Abdul on 08-18-2023 Respiratory pathogens DNA and RNA panel JOSE+probe (Resp) [facility] Respiratory pathogens DNA and RNA panel JOSE+probe (Resp) [facility] Serum or plasma calcium magalis urement (mass/volume)Ordered By: Rolly Edmondson on 08-18-2023 Calcium [Mass/Vol] 9.5 mg/dL 8.5-10.1 [facility] Serum or plasma creatinine m easurement (mass/volume)Ordered By: Rolly Edmondson on 08-18-2023 Creatinine [Mass/Vol] 1.56 mg/dL 0.55-1.02 [facility] Comment on above: The validity of the calculated GFR & GFRAA in patients over 70 years has not been determined. Clinical correlation is essential. Serum or plasma urea nitroge n measurement (mass/volume)Ordered By: Rolly Edmondson on 08-18-2023 Urea nitrogen [Mass/Vol] 43 mg/dL 7-18 [facility] Serum procalcitonin measurem entOrdered By: Yenny Abdul on 08-18-2023 Procalcitonin [Mass/Vol] 0.20 ng/mL 0.00-0.09 [facility] Comment on above: A procalcitonin (PCT ) level above 2.0 ng/mL on the first day of ICU admission is associated with a high risk for progression to severe sepsis and/or septic shock. A PCT level below 0.5 ng/mL on the first day of ICU admission is associated with a low risk for progression to severe and/or septic shock. Note: Concentrations <0.5 ng/mL do not exclude an infection on account of localized infections (without systemic signs) which can be associated with such low concentrations, or a systemic infection in its initial stages (<6 hours). Furthermore, increased procalcitonin can occur without infection. PCT concentrations between 0.5 and 2.0 ng/mL should be interpreted taking into account the patient's history. It is recommended to retest PCT within 6-24 hours if any concentrations <2 ng/mL are obtained. Thin prep Papanicolaou smear with manual screeningOrdered By: Rolly Edmondson on 08-18-2023 Thin prep Papanicolaou smear with manual screening 5 5-15 [facility] Urine Legionella pneumophila antigen detectionOrdered By: Yenny Abdul on 08-18-2023 L. pneumophila Ag Ql (U) [facility] Basophil percentageOrdered B y: Swapna Smith on 08-17-2023 Basophil percentage 137 mg/dL 74-106 [facility] Basophil percentage 142 mmol/L 136-145 [facility] Basophil percentage 3.8 mmol/L 3.5-5.1 [facility] Basophil percentage 110 mmol/L 98-107 [facility] Chloride [Moles/Vol] 110 mmol/L 98-107 [facility] Glucose [Mass/Vol] 137 mg/dL 74-106 [facility] Comment on above: Fasting Glucose resu lt greater than or equal to 126 mg/dL suggests DIABETES MELLITUS per A.D.A. criteria. Potassium [Moles/Vol] 3.8 mmol/L 3.5-5.1 [facility] Sodium [Moles/Vol] 142 mmol/L 136-145 [facility] - Chemistry and C hemistry - challengeOrdered By: Swapna Smith on 08-17-2023 CO2 [Moles/Vol] 28.0 mmol/L 21.0-32.0 [facility] Urea nitrogen/Creatinine [Mass ratio] 24.8 mg/mg 10- [facility] No Panel InformationOrdered By: Swapna Smith on 08-17-2023 Estimated GFR (MDRD) Amer 40 mL/min >60 [facility] Comment on above: GFR Calc Estimated GFR (MDRD) Non-Af Amer 33 mL/min >60 [facility] Comment on above: Non- GFR Calc 33 mL/min >60 [facility] 40 mL/min >60 [facility] 24.8 RATIO 10 [facility] 28.0 mmol/L 21.0-32.0 [facility] Serum or plasma calcium magalis urement (mass/volume)Ordered By: Swapna Smith on 08-17-2023 Calcium [Mass/Vol] 9.3 mg/dL 8.5-10.1 [facility] Serum or plasma creatinine m easurement (mass/volume)Ordered By: Swapna Smith on 08-17-2023 Creatinine [Mass/Vol] 1.57 mg/dL 0.55-1.02 [facility] Comment on above: The validity of the calculated GFR & GFRAA in patients over 70 years has not been determined. Clinical correlation is essential. Serum or plasma urea nitroge n measurement (mass/volume)Ordered By: Swapna Smith on 08-17-2023 Urea nitrogen [Mass/Vol] 39 mg/dL 7-18 [facility] Thin prep Papanicolaou smear with manual screeningOrdered By: Swapna Smith on 08-17-2023 Thin prep Papanicolaou smear with manual screening 4 5-15 [facility] Absolute lymphocyte countOrd ered By: Jay De Luna on 07-27-2023 Lymphocytes Auto (Unsp spec) [#/Vol] 1.46 10*3/uL 0.83-4.51 [facility] Basophil percentageOrdered B y: Jay De Luna on 07-27-2023 Basophil percentage 109 mg/dL 74-106 [facility] Basophil percentage 144 mmol/L 136-145 [facility] Basophil percentage 4.0 mmol/L 3.5-5.1 [facility] Basophil percentage 108 mmol/L 98-107 [facility] Basophil percentage 0.8 mmol/L 0.4-2.0 [facility] Basophils (Bld) [#/Vol] 9.4 10*3/uL 4.4-11.0 [facility] Basophils (Bld) [#/Vol] 6.8 10*3/uL 2.0-7.7 [facility] Basophils/100 WBC (Bld) 0.4 % 0-[address] [facility] Basophils/100 WBC (Bld) 72.1 % 47-70 [facility] Chloride [Moles/Vol] 108 mmol/L 98-107 [facility] Eosinophils/100 WBC (Bld) 0.4 % 0-5 [facility] Glucose [Mass/Vol] 109 mg/dL 74-106 [facility] Comment on above: Fasting Glucose resu lt from 100 to 125 mg/dL suggests IMPAIRED HOMEOSTASIS per A.D.A. criteria. Lactate [Moles/Vol] 0.8 mmol/L 0.4-2.0 [facility] Neutrophils (Bld) [#/Vol] 6.8 10*3/uL 2.0-7.7 [facility] Neutrophils/100 WBC (Bld) 72.1 % 47-70 [facility] Potassium [Moles/Vol] 4.0 mmol/L 3.5-5.1 [facility] Comment on above: Moderate Hemolysis, Result may be falsely increased. Sodium [Moles/Vol] 144 mmol/L 136-145 [facility] WBC (Bld) [#/Vol] 9.4 10*3/uL 4.4-11.0 [facility] Blood erythrocytes count (nu mber/volume)Ordered By: Jay De Luna on 07-27-2023 RBC (Bld) [#/Vol] 3.65 10*6/uL 4.2-5.4 [facility] Blood hemoglobin measurement (mass/volume)Ordered By: Jay De Luna on 07-27-2023 Hemoglobin (Bld) [Mass/Vol] 11.9 g/dL 12.0-15. 0 [facility] Blood lymphocytes/100 leukoc ytesOrdered By: Jay De Luna on 07-27-2023 Lymphocytes/100 WBC (Bld) 15.5 % 19-41 [facility] Blood monocytes/100 leukocyt esOrdered By: Jay De Luna on 07-27-2023 Monocytes/100 WBC (Bld) 10.1 % 0-[address] [facility] Blood platelet mean volumeOr dered By: Jay De Luna on 07-27-2023 Platelet mean volume (Bld) [Entitic vol] 11.0 fL 6.2-12.0 [facility] Determination of erythrocyte mean corpuscular volume (MCV)Ordered By: Jay De Luna on 07-27-2023 MCV (RBC) [Entitic vol] 99.5 fL 81-[address] [facility] Hematocrit Auto (Bld) [Volum e fraction]Ordered By: Jay De Luna on 07-27-2023 Hematocrit (Bld) [Volume fraction] 36.3 % 37-47 [facility] - Chemistry and C hemistry - challengeOrdered By: Jay De Luna on 07-27-2023 CO2 [Moles/Vol] 29.0 mmol/L 21.0-32.0 [facility] Natriuretic peptide B (Bld) [Mass/Vol] 67.3 pg/mL 0-100 [facility] Urea nitrogen/Creatinine [Mass ratio] 44.9 mg/mg 10-20 [facility] - Hematology and Cell countsOrdered By: Jay De Luna on 07-27-2023 Erythrocyte distribution width (RBC) [Entitic vol] 51.5 fL 35.1-43.9 [facility] Erythrocyte distribution width (RBC) [Ratio] 14.2 % 11.6-14.6 [facility] Immature granulocytes/100 WBC (Bld) 1.500 % 0.0-0.9 [facility] Comment on above: IG% - Immature Granu locytes (promyelocytes, myelocytes and metamyelocytes) > 1% indicates that a LEFT SHIFT is Present. MCH (RBC) [Entitic mass] 32.6 pg 27.0-32.0 [facility] Nucleated RBC/100 WBC (Bld) [Ratio] 0 % 0-5 [facility] - Microbiology an d Antimicrobial susceptibilityOrdered By: Jay De Luna on 07-27-2023 SARS-CoV-2 (COVID-19) RNA JOSE+probe Ql (Unsp spec) [facility] Auto (RBC) [Mass/Vol]Or dered By: Jay De Luna on 07-27-2023 MCHC (RBC) [Mass/Vol] 32.8 g/dL 32-36 [facility] No Panel InformationOrdered By: Jay De Luna on 07-27-2023 Estimated GFR (MDRD) Amer 29 mL/min >60 [facility] Comment on above: GFR Calc Estimated GFR (MDRD) Non-Af Amer 24 mL/min >60 [facility] Comment on above: Non- GFR Calc Troponin I High Sensitivity 17 pg/mL 3.0-54.0 [facility] Comment on above: Please Note: New Anjali t Units and Gender Specific Reference Ranges. For more information see Policy Stat Procedure [place] High Sensitivity Troponin (TNIH) and attachments. 32.6 pg 27.0-32.0 [facility] 14.2 % 11.6-14.6 [facility] 51.5 fl 35.1-43.9 [facility] 1.500 % 0.0-0.9 [facility] 0 % 0-5 [facility] 24 mL/min >60 [facility] 29 mL/min >60 [facility] 44.9 RATIO 10-20 [facility] 17 pg/mL 3.0-54.0 [facility] 29.0 mmol/L 21.0-32.0 [facility] 67.3 pg/mL 0-100 [facility] Platelets bldOrdered By: Gabriela De Luna on 07-27-2023 Platelets (Bld) [#/Vol] 154 10*3/uL 150-450 [facility] Serum or plasma calcium magalis urement (mass/volume)Ordered By: Jay De Luna on 07-27-2023 Calcium [Mass/Vol] 8.9 mg/dL 8.5-10.1 [facility] Serum or plasma creatinine m easurement (mass/volume)Ordered By: Jay De Luna on 07-27-2023 Creatinine [Mass/Vol] 2.07 mg/dL 0.55-1.02 [facility] Comment on above: The validity of the calculated GFR & GFRAA in patients over 70 years has not been determined. Clinical correlation is essential. Serum or plasma urea nitroge n measurement (mass/volume)Ordered By: Jay De Luna on 07-27-2023 Urea nitrogen [Mass/Vol] 93 mg/dL 7-18 [facility] Thin prep Papanicolaou smear with manual screeningOrdered By: Jay De Luna on 07-27-2023 Thin prep Papanicolaou smear with manual screening 7 -15 [facility] XR Chest PA and Lateralon IMPRESSION: Decreased prominence of right middle lobe atelectasis or infiltrate. Follow-up until resolution is recommended. 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: JANE Transcribe Date/Time: Jul 22 2023 4:45P Dictated by : DIAMOND HERNANDEZ MD This examination was interpreted and the report reviewed and electronically signed by: DIAMOND HERNANDEZ MD on Jul 22 2023 4:46PM [facility] DIVISION OF RADIOLOGY * * *Final Report* * * DATE OF EXAM: Jul 14 2023 10:32AM WOX 5291 - XR CHEST 2V FRONTAL/LAT / PROCEDURE REASON: Simple chronic bronchitis (HCC) * * * * Physician Interpretation * * * * EXAMINATION: CHEST RADIOGRAPH (2 VIEW FRONTAL & LATERAL) CLINICAL HISTORY: Simple chronic bronchitis (HCC) MQ: XC2_6 EXAM DATE/TIME: 07/14/2023 10:32 AM COMPARISON: Chest x-ray 07/01/2023 RESULT: Lines, tubes, and devices: None. Lungs and pleura: Decreased prominence of right middle lobe atelectasis or infiltrate. No pleural effusion or pneumothorax. Cardiomediastinal silhouette: Normal cardiomediastinal silhouette. Bones and soft tissues: Unremarkable. DIVISION OF RADIOLOGY Provider, [facility] - 07/22/2023 * * *Final Report* * * DATE OF EXAM: Jul 14 2023 10:32AM WOX 5291 - XR CHEST 2V FRONTAL/LAT / PROCEDURE REASON: Simple chronic bronchitis (HCC) * * * * Physician Interpretation * * * * EXAMINATION: CHEST RADIOGRAPH (2 VIEW FRONTAL & LATERAL) CLINICAL HISTORY: Simple chronic bronchitis (HCC) MQ: XC2_6 EXAM DATE/TIME: 07/14/2023 10:32 AM COMPARISON: Chest x-ray 07/01/2023 RESULT: Lines, tubes, and devices: None. Lungs and pleura: Decreased prominence of right middle lobe atelectasis or infiltrate. No pleural effusion or pneumothorax. Cardiomediastinal silhouette: Normal cardiomediastinal silhouette. Bones and soft tissues: Unremarkable. IMPRESSION IMPRESSION: Decreased prominence of right middle lobe atelectasis or infiltrate. Follow-up until resolution is recommended. 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: JANE Transcribe Date/Time: Jul 22 2023 4:45P Dictated by : DIAMOND HERNANDEZ MD This examination was interpreted and the report reviewed and electronically signed by: DIAMOND HERNANDEZ MD on Jul 22 2023 4:46PM EST [facility] XR Chest PA and LateralOrder ed By: [facility] Provider on 07-22-2023 [facility] XR Chest PA and Lateralon Radiology Study observation (narrative) [facility] XR Chest PA and Lateralon IMPRESSION: Persistent right middle lobe infiltrate/atelectasis . A follow-up exam is recommended. 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: JANE Transcribe Date/Time: Jul 03 2023 11:53A Dictated by : MAXINE TO MD This examination was interpreted and the report reviewed and electronically signed by: MAXINE TO MD on Jul 03 2023 11:54AM [facility] DIVISION OF RADIOLOGY * * *Final Report* * * DATE OF EXAM: Jul 01 2023 2:46PM WOX 5291 - XR CHEST 2V FRONTAL/LAT / PROCEDURE REASON: COPD with exacerbation (HCC) * * * * Physician Interpretation * * * * EXAMINATION: CHEST RADIOGRAPH (2 VIEW FRONTAL & LATERAL) CLINICAL HISTORY: COPD with exacerbation (HCC) MQ: XC2_6 EXAM DATE/TIME: 07/01/2023 2:46 PM COMPARISON: 04/25/2023. RESULT: Lines, tubes, and devices: None. Lungs and pleura: There is a persistent focal infiltrate and atelectatic changes in the right middle lobe. The pleural margins remain unremarkable. Cardiomediastinal silhouette: Stable cardiomediastinal silhouette with atherosclerosis of the thoracic aorta. Bones and soft tissues: Unremarkable. DIVISION OF RADIOLOGY Provider, Jessie Marquez - 07/03/2023 * * *Final Report* * * DATE OF EXAM: Jul 01 2023 2:46PM WOX 5291 - XR CHEST 2V FRONTAL/LAT / PROCEDURE REASON: COPD with exacerbation (HCC) * * * * Physician Interpretation * * * * EXAMINATION: CHEST RADIOGRAPH (2 VIEW FRONTAL & LATERAL) CLINICAL HISTORY: COPD with exacerbation (HCC) MQ: XC2_6 EXAM DATE/TIME: 07/01/2023 2:46 PM COMPARISON: 04/25/2023. RESULT: Lines, tubes, and devices: None. Lungs and pleura: There is a persistent focal infiltrate and atelectatic changes in the right middle lobe. The pleural margins remain unremarkable. Cardiomediastinal silhouette: Stable cardiomediastinal silhouette with atherosclerosis of the thoracic aorta. Bones and soft tissues: Unremarkable. IMPRESSION IMPRESSION: Persistent right middle lobe infiltrate/atelectasis . A follow-up exam is recommended. 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: PSCB Transcribe Date/Time: Jul 03 2023 11:53A Dictated by : MAXINE TO MD This examination was interpreted and the report reviewed and electronically signed by: MAXINE TO MD on Jul 03 2023 11:54AM EST [facility] XR Chest PA and LateralOrder ed By: [facility] Provider on 07-03-2023 [facility] XR Chest PA and Lateralon Radiology Study observation (narrative) [facility] Absolute lymphocyte countOrd ered By: Anyacarroll Campa on 06-25-2023 Lymphocytes Auto (Unsp spec) [#/Vol] 0.44 10*3/uL 0.83-4.51 [facility] Basophil percentageOrdered B y: Anya Campa on 06-25-2023 Basophil percentage 327 mg/dL 74-106 [facility] Basophil percentage 138 mmol/L 136-145 [facility] Basophil percentage 3.5 mmol/L 3.5-5.1 [facility] Basophil percentage 102 mmol/L 98-107 [facility] Basophils (Bld) [#/Vol] 13.3 10*3/uL 4.4-11.0 [facility] Basophils (Bld) [#/Vol] 12.3 10*3/uL 2.0-7.7 [facility] Basophils/100 WBC (Bld) 0.3 % 0-[address] [facility] Basophils/100 WBC (Bld) 92.4 % 47-[address] [facility] Basophils/100 WBC (Bld) 0.0 % 0-[address] [facility] Chloride [Moles/Vol] 102 mmol/L 98-107 [facility] Eosinophils/100 WBC (Bld) 0.0 % 0-5 [facility] Glucose [Mass/Vol] 327 mg/dL 74-106 [facility] Comment on above: Glucose result great er than or equal to 200 mg/dLsuggests DIABETES MELLITUS per A.D.A. criteria. Neutrophils (Bld) [#/Vol] 12.3 10*3/uL 2.0-7.7 [facility] Neutrophils/100 WBC (Bld) 92.4 % 47-70 [facility] Potassium [Moles/Vol] 3.5 mmol/L 3.5-5.1 [facility] Sodium [Moles/Vol] 138 mmol/L 136-145 [facility] WBC (Bld) [#/Vol] 13.3 10*3/uL 4.4-11.0 [facility] Blood erythrocytes count (nu mber/volume)Ordered By: Anya Campa on 06-25-2023 RBC (Bld) [#/Vol] 3.79 10*6/uL 4.2-5.4 [facility] Blood hemoglobin measurement (mass/volume)Ordered By: Anya Campa on 06-25-2023 Hemoglobin (Bld) [Mass/Vol] 12.1 g/dL 12.0-15. 0 [facility] Blood lymphocytes/100 leukoc ytesOrdered By: Anya Campa on 06-25-2023 Lymphocytes/100 WBC (Bld) 3.3 % 19-41 [facility] Blood monocytes/100 leukocyt esOrdered By: Anya Campa on 06-25-2023 Monocytes/100 WBC (Bld) 2.0 % 0-[address] [facility] Blood platelet adequacy dete ction by light microscopyOrdered By: Anya Campa on 06-25-2023 Platelets LM Ql (Bld) ADEQUATE ADEQ [facility] Blood platelet mean volumeOr dered By: Anya Campa on 06-25-2023 Platelet mean volume (Bld) [Entitic vol] 10.2 fL 6.2-12.0 [facility] Determination of erythrocyte mean corpuscular volume (MCV)Ordered By: Anya Campa on 06-25-2023 MCV (RBC) [Entitic vol] 98.4 fL 81-[address] [facility] Hematocrit Auto (Bld) [Volum e fraction]Ordered By: Anya Campa on 06-25-2023 Hematocrit (Bld) [Volume fraction] 37.3 % 37-47 [facility] Laboratory - Chemistry and C hemistry - challengeOrdered By: Anya Campa on 06-25-2023 CO2 [Moles/Vol] 27.0 mmol/L 21.0-32.0 [facility] Urea nitrogen/Creatinine [Mass ratio] 39.7 mg/mg 10-20 [facility] - Hematology and Cell countsOrdered By: Anya Campa on 06-25-2023 Erythrocyte distribution width (RBC) [Entitic vol] 45.9 fL 35.1-43.9 [facility] Erythrocyte distribution width (RBC) [Ratio] 12.8 % 11.6-14.6 [facility] Immature granulocytes/100 WBC (Bld) 2.000 % 0.0-0.9 [facility] Comment on above: IG% - Immature Granu locytes (promyelocytes, myelocytes and metamyelocytes) > 1% indicates that a LEFT SHIFT is Present. MCH (RBC) [Entitic mass] 31.9 pg 27.0-32.0 [facility] Nucleated RBC/100 WBC (Bld) [Ratio] 0 % 0-5 [facility] MCHC Auto (RBC) [Mass/Vol]Or dered By: Anya Campa on 06-25-2023 MCHC (RBC) [Mass/Vol] 32.4 g/dL 32-36 [facility] No Panel InformationOrdered By: Anya Campa on 06-25-2023 Estimated Creatinine Clearance Calc 15.60 ml/min [facility] Estimated GFR (MDRD) Amer 31 mL/min >60 [facility] Comment on above: GFR Calc Estimated GFR (MDRD) Non-Af Amer 25 mL/min >60 [facility] Comment on above: Non- GFR Calc 31.9 pg 27.0-32.0 [facility] 12.8 % 11.6-14.6 [facility] 45.9 fl 35.1-43.9 [facility] 2.000 % 0.0-0.9 [facility] 0 % 0-5 [facility] 25 mL/min >60 [facility] 31 mL/min >60 [facility] 15.60 ml/min [facility] 39.7 RATIO 10-20 [facility] 27.0 mmol/L 21.0-32.0 [facility] Platelets bldOrdered By: Serenity Campa on 06-25-2023 Platelets (Bld) [#/Vol] 199 10*3/uL 150-450 [facility] RBC morphologyOrdered By: Tracy Campa on 06-25-2023 RBC morphology finding Nom (Bld) NORM C+C NORMAL NORM C&C [facility] Serum or plasma calcium magalis urement (mass/volume)Ordered By: Anya Campa on 06-25-2023 Calcium [Mass/Vol] 8.5 mg/dL 8.5-10.1 [facility] Serum or plasma creatinine m easurement (mass/volume)Ordered By: Anya Campa on 06-25-2023 Creatinine [Mass/Vol] 1.99 mg/dL 0.55-1.02 [facility] Comment on above: The validity of the calculated GFR & GFRAA in patients over 70 years has not been determined. Clinical correlation is essential. Serum or plasma urea nitroge n measurement (mass/volume)Ordered By: Anya Campa on 06-25-2023 Urea nitrogen [Mass/Vol] 79 mg/dL 7-18 [facility] Thin prep Papanicolaou smear with manual screeningOrdered By: Anya Campa on 06-25-2023 Thin prep Papanicolaou smear with manual screening 9 5-15 [facility] Blood manual differential co mment interpretation (narrative result)Ordered By: Anya Campa on 06-24-2023 Manual differential comment Kan (Bld) [Interp] SCANNED [facility] Bacteria identified Respirat ory culture Nom (Unsp spec)Ordered By: Anya Campa on 06-21-2023 Respiratory Culture Yeast, not Sera albicans [facility] Microbial respiratory culture Yeast, not Sera albicans [facility] Microbial respiratory culture Yeast, not Sera albicans [facility] Gram stain for investigation of transfusion reactionOrdered By: Anya Campa on 06-21-2023 Microscopic observation Gram stain Nom (Unsp spec) [facility] Microscopic observation Gram stain Nom (Unsp spec) [facility] No Panel InformationOrdered By: Anya Campa on 06-21-2023 Troponin I High Sensitivity 14 pg/mL 3.0-54.0 [facility] Comment on above: Please Note: New Anjali t Units and Gender Specific Reference Ranges. For more information see Policy Stat Procedure [place] High Sensitivity Troponin (TNIH) and attachments. 14 pg/mL 3.0-54.0 [facility] Absolute lymphocyte countOrd ered By: Rolly Edmondson on 06-19-2023 Lymphocytes Auto (Unsp spec) [#/Vol] 0.66 10*3/uL 0.83-4.51 [facility] Basophil percentageOrdered B y: Rolly Edmondson on 06-19-2023 Basophils/100 WBC (Bld) 0.3 % 0-[address] [facility] Chloride [Moles/Vol] 104 mmol/L 98-107 [facility] Eosinophils/100 WBC (Bld) 0.2 % 0-5 [facility] Glucose [Mass/Vol] 216 mg/dL 74-106 [facility] Comment on above: Glucose result great er than or equal to 200 mg/dLsuggests DIABETES MELLITUS per A.D.A. criteria. Neutrophils (Bld) [#/Vol] 9.0 10*3/uL 2.0-7.7 [facility] Neutrophils/100 WBC (Bld) 83.4 % 47-70 [facility] Potassium [Moles/Vol] 3.7 mmol/L 3.5-5.1 [facility] Sodium [Moles/Vol] 137 mmol/L 136-145 [facility] WBC (Bld) [#/Vol] 10.8 10*3/uL 4.4-11.0 [facility] Blood erythrocytes count (nu mber/volume)Ordered By: Rolly Edmondson on 06-19-2023 RBC (Bld) [#/Vol] 3.71 10*6/uL 4.2-5.4 [facility] Blood hemoglobin measurement (mass/volume)Ordered By: Rolly Edmondson on 06-19-2023 Hemoglobin (Bld) [Mass/Vol] 12.3 g/dL 12.0-15. 0 [facility] Blood lymphocytes/100 leukoc ytesOrdered By: Rolly Edmondson on 06-19-2023 Lymphocytes/100 WBC (Bld) 6.1 % 19-41 [facility] Blood monocytes/100 leukocyt esOrdered By: Rolly Edmondson on 06-19-2023 Monocytes/100 WBC (Bld) 9.6 % 0-[address] [facility] Blood platelet mean volumeOr dered By: Rolly Edmondson on 06-19-2023 Platelet mean volume (Bld) [Entitic vol] 10.4 fL 6.2-12.0 [facility] Determination of erythrocyte mean corpuscular volume (MCV)Ordered By: Rolly Edmondson on 06-19-2023 MCV (RBC) [Entitic vol] 99.5 fL 81-[address] [facility] Hematocrit Auto (Bld) [Volum e fraction]Ordered By: Rolly Edmondson on 06-19-2023 Hematocrit (Bld) [Volume fraction] 36.9 % 37-47 [facility] Laboratory - Chemistry and C hemistry - challengeOrdered By: Rolly Edmondson on 06-19-2023 CO2 [Moles/Vol] 27.0 mmol/L 21.0-32.0 [facility] Natriuretic peptide B (Bld) [Mass/Vol] 312.5 pg/mL 0-100 [facility] Urea nitrogen/Creatinine [Mass ratio] 29.1 mg/mg 10-20 [facility] Laboratory - Hematology and Cell countsOrdered By: Rolly Edmondson on 06-19-2023 Erythrocyte distribution width (RBC) [Entitic vol] 47.9 fL 35.1-43.9 [facility] Erythrocyte distribution width (RBC) [Ratio] 13.1 % 11.6-14.6 [facility] Immature granulocytes/100 WBC (Bld) 0.400 % 0.0-0.9 [facility] Comment on above: IG% - Immature Granu locytes (promyelocytes, myelocytes and metamyelocytes) > 1% indicates that a LEFT SHIFT is Present. MCH (RBC) [Entitic mass] 33.2 pg 27.0-32.0 [facility] Nucleated RBC/100 WBC (Bld) [Ratio] 0 % 0-5 [facility] MCHC Auto (RBC) [Mass/Vol]Or dered By: Rolly Edmondson on 06-19-2023 MCHC (RBC) [Mass/Vol] 33.3 g/dL 32-36 [facility] No Panel InformationOrdered By: Rolly Edmondson on 06-19-2023 Estimated Creatinine Clearance Calc 21.54 ml/min [facility] Estimated GFR (MDRD) Amer 42 mL/min >60 [facility] Comment on above: GFR Calc Estimated GFR (MDRD) Non-Af Amer 35 mL/min >60 [facility] Comment on above: Non- GFR Calc Troponin I High Sensitivity 16 pg/mL 3.0-54.0 [facility] Comment on above: Please Note: New Anjali t Units and Gender Specific Reference Ranges. For more information see Policy Stat Procedure [place] High Sensitivity Troponin (TNIH) and attachments. 312.5 pg/mL 0-100 [facility] Platelets bldOrdered By: Anastasia Edmondson on 06-19-2023 Platelets (Bld) [#/Vol] 168 10*3/uL 150-450 [facility] Serum or plasma calcium magalis urement (mass/volume)Ordered By: Rolly Edmondson on 06-19-2023 Calcium [Mass/Vol] 8.8 mg/dL 8.5-10.1 [facility] Serum or plasma creatinine m easurement (mass/volume)Ordered By: Rolly Edmondson on 06-19-2023 Creatinine [Mass/Vol] 1.51 mg/dL 0.55-1.02 [facility] Comment on above: The validity of the calculated GFR & GFRAA in patients over 70 years has not been determined. Clinical correlation is essential. Serum or plasma urea nitroge n measurement (mass/volume)Ordered By: Rolly Edmondson on 06-19-2023 Urea nitrogen [Mass/Vol] 44 mg/dL 7-18 [facility] Thin prep Papanicolaou smear with manual screeningOrdered By: Rolly Edmondson on 06-19-2023 Thin prep Papanicolaou smear with manual screening 6 5-15 [facility] DXA-AXIAL SKELETONon 023 [facility] XR Chest PA and Lateralon IMPRESSION: Atelectasis versus pulmonary infiltrates in the right middle lobe and lingula. Questionable right lung nodule. Consider follow-up. 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: PSCOracio Transcribe Date/Time: Apr 26 2023 5:11P Dictated by : MARY CHRISTENSEN MD This examination was interpreted and the report reviewed and electronically signed by: MARY CHRISTENSEN MD on Apr 26 2023 5:13PM [facility] DIVISION OF RADIOLOGY * * *Final Report* * * DATE OF EXAM: Apr 25 2023 9:35AM WOX 5291 - XR CHEST 2V FRONTAL/LAT / PROCEDURE REASON: SOB (shortness of breath) * * * * Physician Interpretation * * * * EXAMINATION: CHEST RADIOGRAPH (2 VIEW FRONTAL & LATERAL) CLINICAL HISTORY: SOB (shortness of breath) MQ: XC2_6 EXAM DATE/TIME: 04/25/2023 9:35 AM COMPARISON: Chest x-ray on 10/30/2022 RESULT: Lines, tubes, and devices: None. Lungs and pleura: Atelectasis versus pulmonary infiltrates in the right middle lobe and lingula, better appreciated on lateral view. There is a questionable 1 cm nodule in the right lower lung. The upper lungs are clear. No mass lesion identified. No pleural effusions or pneumothorax. Cardiomediastinal silhouette: Stable cardiomediastinal silhouette. Bones and soft tissues: Unremarkable. DIVISION OF RADIOLOGY [facility] * * *Final Report* * * DATE OF EXAM: Apr 25 2023 9:35AM WOX 5291 - XR CHEST 2V FRONTAL/LAT / PROCEDURE REASON: SOB (shortness of breath) * * * * Physician Interpretation * * * * EXAMINATION: CHEST RADIOGRAPH (2 VIEW FRONTAL & LATERAL) CLINICAL HISTORY: SOB (shortness of breath) MQ: XC2_6 EXAM DATE/TIME: 04/25/2023 9:35 AM COMPARISON: Chest x-ray on 10/30/2022 RESULT: Lines, tubes, and devices: None. Lungs and pleura: Atelectasis versus pulmonary infiltrates in the right middle lobe and lingula, better appreciated on lateral view. There is a questionable 1 cm nodule in the right lower lung. The upper lungs are clear. No mass lesion identified. No pleural effusions or pneumothorax. Cardiomediastinal silhouette: Stable cardiomediastinal silhouette. Bones and soft tissues: Unremarkable. IMPRESSION IMPRESSION: Atelectasis versus pulmonary infiltrates in the right middle lobe and lingula. Questionable right lung nodule. Consider follow-up. 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: JANE Transcribe Date/Time: Apr 26 2023 5:11P Dictated by : MARY CHRISTENSEN MD This examination was interpreted and the report reviewed and electronically signed by: MARY CHRISTENSEN MD on Apr 26 2023 5:13PM EST [facility] XR Chest PA and LateralOrder ed By: [facility] Provider on 04-26-2023 [facility] XR Chest PA and Lateralon Radiology Study observation (narrative) [facility] XR Thoracic spine AP and Lat eralon 03-25-2023 IMPRESSION: No compression fracture. 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: JANE Transcribe Date/Time: Mar 25 2023 8:58A Dictated by : JUVENAL GLEASON MD This examination was interpreted and the report reviewed and electronically signed by: JUVENAL GLEASON MD on Mar 25 2023 8:59AM [facility] DIVISION OF RADIOLOGY * * *Final Report* * * DATE OF EXAM: Mar 23 2023 10:19AM WOX [id number] - XR THORACIC 2V AP/LAT / PROCEDURE REASON: multiple diagnoses * * * * Physician Interpretation * * * * EXAMINATION: XR THORACIC 2V AP/LAT HISTORY: for a couple of months pain across the lower lumbar area, none in thoracic no inj Chronic bilateral thoracic back pain Chronic bilateral thoracic back pain . TECHNIQUE: XR THORACIC 2V AP/LAT Laterality: NOT APPLICABLE Number of different views (projections): 2 M: XB_1 COMPARISON: RESULT: Generalized osteopenia. Minimal degenerative disc changes of the thoracic spine. No compression fracture. Surgical clips in the left neck. No acute fracture or dislocation. There are no bony erosions. DIVISION OF RADIOLOGY Provider, Jessie Marquez - 03/25/2023 * * *Final Report* * * DATE OF EXAM: Mar 23 2023 10:19AM WOX [id number] - XR THORACIC 2V AP/LAT / PROCEDURE REASON: multiple diagnoses * * * * Physician Interpretation * * * * EXAMINATION: XR THORACIC 2V AP/LAT HISTORY: for a couple of months pain across the lower lumbar area, none in thoracic no inj Chronic bilateral thoracic back pain Chronic bilateral thoracic back pain . TECHNIQUE: XR THORACIC 2V AP/LAT Laterality: NOT APPLICABLE Number of different views (projections): 2 M: XB_1 COMPARISON: RESULT: Generalized osteopenia. Minimal degenerative disc changes of the thoracic spine. No compression fracture. Surgical clips in the left neck. No acute fracture or dislocation. There are no bony erosions. IMPRESSION IMPRESSION: No compression fracture. 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: JANE Transcribe Date/Time: Mar 25 2023 8:58A Dictated by : JUVENAL GLEASON MD This examination was interpreted and the report reviewed and electronically signed by: JUVENAL GLEASON MD on Mar 25 2023 8:59AM EST [facility] XR Thoracic spine AP and Lat eralOrdered By: [facility] Provider on 03-25-2023 [facility] XR Lumbar spine 3 Viewson IMPRESSION: DEGENERATIVE CHANGE AND ALIGNMENT ABNORMALITIES. SUPERIOR ENDPLATE FRACTURE OF L1 IS NOT ACUTE. AORTIC ECTASIA 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: [facility] Transcribe Date/Time: Mar 24 2023 3:15P Dictated by : COLBY PUCKETT MD This examination was interpreted and the report reviewed and electronically signed by: COLBY PUCKETT MD on Mar 24 2023 3:29PM [facility] DIVISION OF RADIOLOGY * * *Final Report* * * DATE OF EXAM: Mar 23 2023 10:19AM WOX [id number] - XR LUMBAR 3V AP/LAT/L5-S1 / PROCEDURE REASON: Lumbar pain * * * * Physician Interpretation * * * * Examination: XR LUMBAR 3V AP/LAT/L5-S1 History: Lumbar pain Technique: XR LUMBAR 3V AP/LAT/L5-S1 Comparison: Renal CT of 04/21/2022 RESULT: 5 nonrib-bearing lumbar type vertebrae. For numbering purposes, L4-5 is at the level of the iliac crest. Mild posterior position of L2 with respect to L3 and L3 with respect to L4. Moderate spondylosis, osteophytosis and multilevel disc space narrowing. L1 superior endplate fracture is stable. Degenerative change involving the posterior elements from L3 through S1 is noted. Vascular calcification is seen. The aorta appears ectatic. DIVISION OF RADIOLOGY Provider, [facility] - 03/24/2023 * * *Final Report* * * DATE OF EXAM: Mar 23 2023 10:19AM WOX 5228 - XR LUMBAR 3V AP/LAT/L5-S1 / PROCEDURE REASON: Lumbar pain * * * * Physician Interpretation * * * * Examination: XR LUMBAR 3V AP/LAT/L5-S1 History: Lumbar pain Technique: XR LUMBAR 3V AP/LAT/L5-S1 Comparison: Renal CT of 04/21/2022 RESULT: 5 nonrib-bearing lumbar type vertebrae. For numbering purposes, L4-5 is at the level of the iliac crest. Mild posterior position of L2 with respect to L3 and L3 with respect to L4. Moderate spondylosis, osteophytosis and multilevel disc space narrowing. L1 superior endplate fracture is stable. Degenerative change involving the posterior elements from L3 through S1 is noted. Vascular calcification is seen. The aorta appears ectatic. IMPRESSION IMPRESSION: DEGENERATIVE CHANGE AND ALIGNMENT ABNORMALITIES. SUPERIOR ENDPLATE FRACTURE OF L1 IS NOT ACUTE. AORTIC ECTASIA 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: PSCB Transcribe Date/Time: Mar 24 2023 3:15P Dictated by : COLBY PUCKETT MD This examination was interpreted and the report reviewed and electronically signed by: COLBY PUCKETT MD on Mar 24 2023 3:29PM EST [facility] No Panel Informationon 03-23 Radiology Study observation (narrative) [facility] Absolute lymphocyte countOrd ered By: Dr. Zuleta on 12-30-2022 Lymphocytes Auto (Unsp spec) [#/Vol] 1.37 10*3/uL 0.83-4.51 [facility] Basophil percentageOrdered B y: Dr. Zuleta on 12-30-2022 Basophil percentage 0 SEEN /hpf 0-5 [facility] Basophils/100 WBC (Bld) 0.4 % 0-[address] [facility] Chloride [Moles/Vol] 96 mmol/L 98-107 [facility] Eosinophils/100 WBC (Bld) 2.1 % 0-5 [facility] Glucose [Mass/Vol] 135 mg/dL 74-106 [facility] Comment on above: Fasting Glucose resu lt greater than or equal to 126 mg/dL suggests DIABETES MELLITUS per A.D.A. criteria. Neutrophils (Bld) [#/Vol] 5.3 10*3/uL 2.0-7.7 [facility] Neutrophils/100 WBC (Bld) 69.5 % 47-70 [facility] Potassium [Moles/Vol] 4.3 mmol/L 3.5-5.1 [facility] Sodium [Moles/Vol] 134 mmol/L 136-145 [facility] WBC (Bld) [#/Vol] 7.6 10*3/uL 4.4-11.0 [facility] Bilirubin Test strip Ql (U)O rdered By: Dr. Zuleta on 12-30-2022 Bilirubin Ql (U) Negative Negative [facility] Blood erythrocytes count (nu mber/volume)Ordered By: Dr. Zuleta on 12-30-2022 RBC (Bld) [#/Vol] 3.92 10*6/uL 4.2-5.4 [facility] Blood hemoglobin measurement (mass/volume)Ordered By: Dr. Zuleta on 12-30-2022 Hemoglobin (Bld) [Mass/Vol] 12.8 g/dL 12.0-15. 0 [facility] Blood lymphocytes/100 leukoc ytesOrdered By: Dr. Zuleta on 12-30-2022 Lymphocytes/100 WBC (Bld) 18.0 % 19-41 [facility] Blood monocytes/100 leukocyt esOrdered By: Dr. Zuleta on 12-30-2022 Monocytes/100 WBC (Bld) 9.6 % 0-[address] [facility] Blood platelet mean volumeOr dered By: Dr. Zuleta on 12-30-2022 Platelet mean volume (Bld) [Entitic vol] 11.4 fL 6.2-12.0 [facility] Determination of erythrocyte mean corpuscular volume (MCV)Ordered By: Dr. Zuleta on 12-30-2022 MCV (RBC) [Entitic vol] 99.0 fL 81-[address] [facility] Hematocrit Auto (Bld) [Volum e fraction]Ordered By: Dr. Zuleta on 12-30-2022 Hematocrit (Bld) [Volume fraction] 38.8 % 37-47 [facility] Ketones Test strip Ql (U)Ord ered By: Dr. Zuleta on 12-30-2022 Ketones Ql (U) Negative Negative [facility] Laboratory - Chemistry and C hemistry - challengeOrdered By: Dr. Zuleta on 12-30-2022 CO2 [Moles/Vol] 30.0 mmol/L 21.0-32.0 [facility] Urea nitrogen/Creatinine [Mass ratio] 27.0 mg/mg 10-20 [facility] Laboratory - Hematology and Cell countsOrdered By: Dr. Zuleta on 12-30-2022 Erythrocyte distribution width (RBC) [Entitic vol] 55.2 fL 35.1-43.9 [facility] Erythrocyte distribution width (RBC) [Ratio] 15.2 % 11.6-14.6 [facility] Immature granulocytes/100 WBC (Bld) 0.400 % 0.0-0.9 [facility] Comment on above: IG% - Immature Granu locytes (promyelocytes, myelocytes and metamyelocytes) > 1% indicates that a LEFT SHIFT is Present. MCH (RBC) [Entitic mass] 32.7 pg 27.0-32.0 [facility] Nucleated RBC/100 WBC (Bld) [Ratio] 0 % 0-5 [facility] MCHC Auto (RBC) [Mass/Vol]Or dered By: Dr. Zuleta on 12-30-2022 MCHC (RBC) [Mass/Vol] 33.0 g/dL 32-36 [facility] Mucus LM Ql (Urine sed)Order ed By: Dr. Zuleta on 12-30-2022 Mucus Ql (Urine sed) 0 SEEN /hpf [facility] Nitrite Test strip Ql (U)Ord ered By: Dr. Zuleta on 06-15-2023 Nitrite Ql (U) Negative Negative [facility] No Panel InformationOrdered By: Dr. Zuleta on 12-30-2022 Estimated Creatinine Clearance Calc 12.37 ml/min [facility] Estimated GFR (MDRD) Amer 22 mL/min >60 [facility] Comment on above: GFR Calc Estimated GFR (MDRD) Non-Af Amer 18 mL/min >60 [facility] Comment on above: Non- GFR Calc Platelets bldOrdered By: Dr. Zuleta on 12-30-2022 Platelets (Bld) [#/Vol] 220 10*3/uL 150-450 [facility] Protein Test strip Ql (U)Ord ered By: Dr. Zuleta on 12-30-2022 Protein Ql (U) Negative Negative [facility] Serum or plasma calcium magalis urement (mass/volume)Ordered By: Dr. Zuleta on 12-30-2022 Calcium [Mass/Vol] 9.7 mg/dL 8.5-10.1 [facility] Serum or plasma creatinine m easurement (mass/volume)Ordered By: Dr. Zuleta on 12-30-2022 Creatinine [Mass/Vol] 2.63 mg/dL 0.55-1.02 [facility] Comment on above: The validity of the calculated GFR & GFRAA in patients over 70 years has not been determined. Clinical correlation is essential. Serum or plasma urea nitroge n measurement (mass/volume)Ordered By: Dr. Zuleta on 12-30-2022 Urea nitrogen [Mass/Vol] 71 mg/dL 7-18 [facility] Squamous epithelial cells de tection in urine sediment by light microscopyOrdered By: Dr. Zuleta on 12-30-2022 Epithelial cells.squamous LM Ql (Urine sed) 0 SEEN /hpf 5-10 [facility] Thin prep Papanicolaou smear with manual screeningOrdered By: Dr. Zuleta on 12-30-2022 Thin prep Papanicolaou smear with manual screening 8 5-15 [facility] Urine blood detectionOrdered By: Dr. Zuleta on 12-30-2022 RBC Ql (U) Negative Negative [facility] RBC Ql (U) 0 SEEN /hpf 0-5 [facility] Urine clarityOrdered By: Dr. Zuleta on 12-30-2022 Clarity (U) Clear Clear [facility] Urine color determinationOrd ered By: Dr. Zuleta on 12-30-2022 Color (U) Yellow Yellow [facility] Urine glucose detectionOrder ed By: Dr. Zuleta on 12-30-2022 Glucose Ql (U) Normal mg/dl Normal [facility] Urine leukocyte esterase det ection by dipstickOrdered By: Dr. Zuleta on 12-30-2022 Leukocyte esterase Test strip Ql (U) Negative Negative [facility] Urine pHOrdered By: Dr. Maggy terrell on 12-30-2022 pH (U) 7.0 [pH] 5.0 - 8.0 [facility] Urine sediment bacteria coun t by microscopy (number/high power field)Ordered By: Dr. Zuleta on 12-30-2022 Bacteria LM.HPF (Urine sed) [#/Area] 0 /[HPF] None Seen [facility] Urine specific gravity measu rementOrdered By: Dr. Zuleta on 12-30-2022 Specific gravity (U) [Rel density] 1.010 1.002-1.03 0 [facility] Urobilinogen Auto test strip Ql (U)Ordered By: Dr. Zuleta on 12-30-2022 Urobilinogen Ql (U) Normal mg/dl Normal [facility] Absolute lymphocyte countOrd ered By: Dr. Thompson on 12-09-2022 Lymphocytes Auto (Unsp spec) [#/Vol] 1.54 10*3/uL 0.83-4.51 [facility] Basophil percentageOrdered B y: Dr. Thompson on 12-09-2022 Basophil percentage 0 SEEN /hpf 0-5 [facility] Basophils/100 WBC (Bld) 0.3 % 0-[address] [facility] Chloride [Moles/Vol] 105 mmol/L 98-107 [facility] Eosinophils/100 WBC (Bld) 1.4 % 0-5 [facility] Glucose [Mass/Vol] 101 mg/dL 74-106 [facility] Comment on above: Fasting Glucose resu lt from 100 to 125 mg/dL suggests IMPAIRED HOMEOSTASIS per A.D.A. criteria. Neutrophils (Bld) [#/Vol] 6.6 10*3/uL 2.0-7.7 [facility] Neutrophils/100 WBC (Bld) 72.5 % 47-70 [facility] Potassium [Moles/Vol] 4.3 mmol/L 3.5-5.1 [facility] Sodium [Moles/Vol] 140 mmol/L 136-145 [facility] WBC (Bld) [#/Vol] 9.1 10*3/uL 4.4-11.0 [facility] Bilirubin Test strip Ql (U)O rdered By: Dr. Thompson on 12-09-2022 Bilirubin Ql (U) Negative Negative [facility] Blood erythrocytes count (nu mber/volume)Ordered By: Dr. Thompson on 12-09-2022 RBC (Bld) [#/Vol] 3.63 10*6/uL 4.2-5.4 [facility] Blood hemoglobin measurement (mass/volume)Ordered By: Dr. Thompson on 12-09-2022 Hemoglobin (Bld) [Mass/Vol] 11.5 g/dL 12.0-15. 0 [facility] Blood lymphocytes/100 leukoc ytesOrdered By: Dr. Thompson on 12-09-2022 Lymphocytes/100 WBC (Bld) 16.9 % 19-41 [facility] Blood monocytes/100 leukocyt esOrdered By: Dr. Thompson on 12-09-2022 Monocytes/100 WBC (Bld) 8.2 % 0-[address] [facility] Blood platelet mean volumeOr dered By: Dr. Thompson on 12-09-2022 Platelet mean volume (Bld) [Entitic vol] 11.1 fL 6.2-12.0 [facility] Determination of erythrocyte mean corpuscular volume (MCV)Ordered By: Dr. Thompson on 12-09-2022 MCV (RBC) [Entitic vol] 98.1 fL 81-[address] [facility] Hematocrit Auto (Bld) [Volum e fraction]Ordered By: Dr. Thompson on 12-09-2022 Hematocrit (Bld) [Volume fraction] 35.6 % 37-47 [facility] Ketones Test strip Ql (U)Ord ered By: Dr. Thompson on 12-09-2022 Ketones Ql (U) Negative Negative [facility] Laboratory - Chemistry and C hemistry - challengeOrdered By: Dr. Thompson on 12-09-2022 CO2 [Moles/Vol] 28.0 mmol/L 21.0-32.0 [facility] Urea nitrogen/Creatinine [Mass ratio] 25.0 mg/mg 10-20 [facility] Laboratory - Hematology and Cell countsOrdered By: Dr. Thompson on 12-09-2022 Erythrocyte distribution width (RBC) [Entitic vol] 53.2 fL 35.1-43.9 [facility] Erythrocyte distribution width (RBC) [Ratio] 14.8 % 11.6-14.6 [facility] Immature granulocytes/100 WBC (Bld) 0.700 % 0.0-0.9 [facility] Comment on above: IG% - Immature Granu locytes (promyelocytes, myelocytes and metamyelocytes) > 1% indicates that a LEFT SHIFT is Present. MCH (RBC) [Entitic mass] 31.7 pg 27.0-32.0 [facility] Nucleated RBC/100 WBC (Bld) [Ratio] 0 % 0-5 [facility] MCHC Auto (RBC) [Mass/Vol]Or dered By: Dr. Thompson on 12-09-2022 MCHC (RBC) [Mass/Vol] 32.3 g/dL 32-36 [facility] Mucus LM Ql (Urine sed)Order ed By: Dr. Thompson on 12-09-2022 Mucus Ql (Urine sed) 0 SEEN /hpf [facility] Nitrite Test strip Ql (U)Ord ered By: Dr. Thompson on 12-09-2022 Nitrite Ql (U) Negative Negative [facility] No Panel InformationOrdered By: Dr. Thompson on 12-09-2022 Estimated Creatinine Clearance Calc 17.30 ml/min [facility] Estimated GFR (MDRD) Amer 33 mL/min >60 [facility] Comment on above: GFR Calc Estimated GFR (MDRD) Non-Af Amer 27 mL/min >60 [facility] Comment on above: Non- GFR Calc Platelets bldOrdered By: Dr. Thompson on 12-09-2022 Platelets (Bld) [#/Vol] 160 10*3/uL 150-450 [facility] Protein Test strip Ql (U)Ord ered By: Dr. Thompson on 12-09-2022 Protein Ql (U) Negative Negative [facility] Serum or plasma calcium magalis urement (mass/volume)Ordered By: Dr. Thompson on 12-09-2022 Calcium [Mass/Vol] 9.4 mg/dL 8.5-10.1 [facility] Serum or plasma creatinine m easurement (mass/volume)Ordered By: Dr. Thompson on 12-09-2022 Creatinine [Mass/Vol] 1.88 mg/dL 0.55-1.02 [facility] Comment on above: The validity of the calculated GFR & GFRAA in patients over 70 years has not been determined. Clinical correlation is essential. Serum or plasma urea nitroge n measurement (mass/volume)Ordered By: Dr. Thompson on 12-09-2022 Urea nitrogen [Mass/Vol] 47 mg/dL 7-18 [facility] Squamous epithelial cells de tection in urine sediment by light microscopyOrdered By: Dr. Thompson on 12-09-2022 Epithelial cells.squamous LM Ql (Urine sed) 0-5 SEEN /hpf 5-10 [facility] Thin prep Papanicolaou smear with manual screeningOrdered By: Dr. Thompson on 12-09-2022 Thin prep Papanicolaou smear with manual screening 7 5-15 [facility] Urine blood detectionOrdered By: Dr. Thompson on 12-09-2022 RBC Ql (U) Negative Negative [facility] RBC Ql (U) 0 SEEN /hpf 0-5 [facility] Urine clarityOrdered By: Dr. Thompson on 12-09-2022 Clarity (U) Clear Clear [facility] Urine color determinationOrd ered By: Dr. Thompson on 12-09-2022 Color (U) Straw Yellow [facility] Urine glucose detectionOrder ed By: Dr. Thompson on 12-09-2022 Glucose Ql (U) Normal mg/dl Normal [facility] Urine leukocyte esterase det ection by dipstickOrdered By: Dr. Thompson on 12-09-2022 Leukocyte esterase Test strip Ql (U) Negative Negative [facility] Urine pHOrdered By: Dr. Dudley rodrigues on 12-09-2022 pH (U) 8.0 [pH] 5.0 - 8.0 [facility] Urine sediment bacteria coun t by microscopy (number/high power field)Ordered By: Dr. Thompson on 12-09-2022 Bacteria LM.HPF (Urine sed) [#/Area] 0 /[HPF] None Seen [facility] Urine specific gravity measu rementOrdered By: Dr. Thompson on 12-09-2022 Specific gravity (U) [Rel density] 1.010 1.002-1.03 0 [facility] Urobilinogen Auto test strip Ql (U)Ordered By: Dr. Thompson on 12-09-2022 Urobilinogen Ql (U) Normal mg/dl Normal [facility] XR CHEST 2V FRONTAL/LATon [facility] XR Chest PA and Lateralon IMPRESSION: No acute radiographic abnormality. 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: [facility] Transcribe Date/Time: Oct 30 2022 8:46A Dictated by : NOBLE MEHTA MD This examination was interpreted and the report reviewed and electronically signed by: NOBLE MEHTA MD on Oct 30 2022 8:48AM [facility] DIVISION OF RADIOLOGY * * *Final Report* * * DATE OF EXAM: Oct 30 2022 8:44AM WOX 5291 - XR CHEST 2V FRONTAL/LAT / PROCEDURE REASON: Acute cough * * * * Physician Interpretation * * * * EXAMINATION: CHEST RADIOGRAPH (2 VIEW FRONTAL & LATERAL) CLINICAL HISTORY: Acute cough MQ: XC2_6 EXAM DATE/TIME: 10/30/2022 8:44 AM COMPARISON: No relevant prior studies available. RESULT: Lines, tubes, and devices: None. Lungs and pleura: Stable airspace disease along RIGHT heart border. Lungs otherwise clear. No evidence of pulmonary vascular redistribution or pleural effusion. Cardiomediastinal silhouette: Normal cardiomediastinal silhouette. Bones and soft tissues: Unremarkable. DIVISION OF RADIOLOGY Provider, [facility] - 10/30/2022 * * *Final Report* * * DATE OF EXAM: Oct 30 2022 8:44AM WOX 5291 - XR CHEST 2V FRONTAL/LAT / PROCEDURE REASON: Acute cough * * * * Physician Interpretation * * * * EXAMINATION: CHEST RADIOGRAPH (2 VIEW FRONTAL & LATERAL) CLINICAL HISTORY: Acute cough MQ: XC2_6 EXAM DATE/TIME: 10/30/2022 8:44 AM COMPARISON: No relevant prior studies available. RESULT: Lines, tubes, and devices: None. Lungs and pleura: Stable airspace disease along RIGHT heart border. Lungs otherwise clear. No evidence of pulmonary vascular redistribution or pleural effusion. Cardiomediastinal silhouette: Normal cardiomediastinal silhouette. Bones and soft tissues: Unremarkable. IMPRESSION IMPRESSION: No acute radiographic abnormality. 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: [facility] Transcribe Date/Time: Oct 30 2022 8:46A Dictated by : NOBLE MEHTA MD This examination was interpreted and the report reviewed and electronically signed by: NOBLE MEHTA MD on Oct 30 2022 8:48AM EST [facility] Radiology Study observation (narrative) [facility] XR Chest PA and LateralOrder ed By: [facility] Provider on 10-30-2022 [facility] VITAMIN D 25 HYDROXYon 09-18 25-hydroxyvitamin D3 [Mass/Vol] 46.7 ng/mL 31.0 - 80.0 ng/mL [facility] CBC panel Auto (Bld)on 09-17 Erythrocyte distribution width (RBC) [Ratio] 14.3 % 11.5 - 15.0 % [facility] Hematocrit (Bld) [Volume fraction] 38.8 % 36.0 - 46.0 % [facility] Hemoglobin (Bld) [Mass/Vol] 12.5 g/dL 11.5 - 15.5 g/dL [facility] MCH (RBC) [Entitic mass] 31.8 pg 26. 0 - 34.0 pg [facility] MCHC (RBC) [Mass/Vol] 32.2 g/dL 30.5 - 36.0 g/dL [facility] MCV (RBC) [Entitic vol] 98.7 fL 80.0 - 100.0 fL [facility] Nucleated RBC (Bld) [#/Vol] <0.01 k/ uL [facility] Platelet mean volume (Bld) [Entitic vol] 11.0 fL 9.0 - 12.7 fL [facility] Platelets (Bld) [#/Vol] 215 10*3/uL 150 - 400 k/uL [facility] RBC (Bld) [#/Vol] 3.93 10*6/uL 3.90 - 5.20 m/uL [facility] WBC (Bld) [#/Vol] 10.37 10*3/uL 3.70 - 11.00 k/uL [facility] Comprehensive metabolic 2000 panelon 09-17-2022 Albumin [Mass/Vol] 4.1 g/dL 3.9 - 4.9 g/dL [facility] ALP [Catalytic activity/Vol] 73 U/L 34 - 123 U/L [facility] ALT [Catalytic activity/Vol] 38 U/L 7 - 38 U/L [facility] Anion gap [Moles/Vol] 11 mmol/L 9 - 18 mmol/L [facility] AST [Catalytic activity/Vol] 37 U/L High 13 - 35 U/L [facility] Bilirubin [Mass/Vol] 0.3 mg/dL 0.2 - 1 .3 mg/dL [facility] Calcium [Mass/Vol] 9.4 mg/dL 8.5 - 10. 2 mg/dL [facility] Chloride [Moles/Vol] 100 mmol/L 97 - 10 5 mmol/L [facility] CO2 [Moles/Vol] 27 mmol/L 22 - 30 mmol/L [facility] Creatinine [Mass/Vol] 1.73 mg/dL High 0.58 - 0.96 mg/dL [facility] Estimated Glomerular Filtration Rate 29 mL/min/1.73m Low >=60 mL/min/1.7 3m [facility] Glucose [Mass/Vol] 96 mg/dL 74 - 99 mg/dL [facility] Potassium [Moles/Vol] 4.7 mmol/L 3.7 - 5.1 mmol/L [facility] Protein [Mass/Vol] 6.8 g/dL 6.3 - 8.0 g/dL [facility] Sodium [Moles/Vol] 138 mmol/L 136 - 144 mmol/L [facility] Urea nitrogen [Mass/Vol] 48 mg/dL High 7 - 21 mg/dL [facility] MAGNESIUM BLDon 09-17-2022 Magnesium [Mass/Vol] 2.3 mg/dL 1.7 - 2 .3 mg/dL [facility] T4 FREE/FREE THYROXon 2022 Free T4 [Mass/Vol] 1.3 ng/dL 0.9 - 1.7 ng/dL [facility] TSH BLDon 09-17-2022 TSH Qn 1.260 m[IU]/L 0.270 - 4.200 mIU/L [facility] CT CHEST WO IVCONon 08-05-19 23 Radiology Result ACTIONABLE Abnormal [facility] CT CHEST WO IVCONon 05-18-20 22 Radiology Result ACTIONABLE Abnormal [facility] UA DIP, URINE (POC)on 2021 BILIRUBIN UA (POCT) Negative Negative [facility] CLARITY UA (POCT) Clear [facility] COLOR UA (POCT) Yellow [facility] GLUCOSE UA (POCT) Negative Negative mg/dL [facility] HEMOGLOBIN/BLOOD UA (POCT) Negative Negative [facility] KETONE UA (POCT) Negative Negative mg/dL [facility] LEUKOCYTES UA (POCT) Moderate Abnormal Negative [facility] NITRITE UA (POCT) Negative Negative [facility] PH UA (POCT) 7.0 4.5 - 8.0 [facility] Protein Ql (U) Negative Negative mg/dL [facility] SPECIFIC GRAVITY UA (POCT) 1.015 1 .005 - 1.030 [facility] UROBILINOGEN UA (POCT) 0.2 E.U./dL [facility] E.U./dL [facility] Eosinophils Auto (Bld) [#/Vo l]on 04-26-2022 Eosinophils (Bld) [#/Vol] 0.12 10*3/uL <0.46 k/ uL [facility] ALLIED HEALTHon 04-21-2022 ALLIED HEALTH HNO ID: [id number] Author: Giovani Pate Service: Radiology Author Type: Toolroom Attendant Type: Allied Health Filed: 04/21/2022 2:35 PM Note Text: Radiology Service Progress Note DATE OF SERVICE: [...] Ref Range Status 03/30/2022 37 (L) >=60 mL/min/1.73m? Final Comment: Estimated Glomerular Filtration Rate (eGFR) [...] Completed: Abdomen/Pelvis SIGNATURE: Giovani Pate PATIENT NAME: Dick Artis DATE: April 21, 2022 TIME: 2:35 PM [facility] CT KIDNEY WO/W IVCONon 04-21 CT KIDNEY WO/W IVCON * * *Final Report* * * DATE OF EXAM: Apr 21 2022 2:44PM [facility] [place] - CT KIDNEY WO/W IVCON / PROCEDURE REASON: multiple diagnoses * * * * Physician Interpretation * * * * EXAMINATION: CT ABDOMEN (KIDNEY) WITHOUT AND WITH IV CONTRAST CLINICAL HISTORY: Renal mass characterization. TECHNIQUE: Spiral imaging in three phases through the kidneys and including the abdomen was performed utilizing IV contrast only. No oral contrast was given. Arterial phase MIP, and nephrographic phase oblique coronal and sagittal reformations were created from thin-slice images under physician supervision on the imaging modality workstation. MQ: [id number] Contrast: IV: 100 ml of Omnipaque 350 Oral Contrast: None CT Radiation dose: Integrated dose-length product (DLP) for this visit = 891 mGy*cm. CT Dose Reduction Employed: Automated exposure control (AEC) COMPARISON: 12/08/2021 CTA abdomen pelvis. RESULT: Renal small atrophic right kidney. 2 cm soft tissue density anterior right renal mass in question on the CTA, 7:48, does not change significantly in Hounsfield unit measurement between the noncontrast, early postcontrast, and delayed postcontrast images and is nonspecific but could be a hemorrhagic or proteinaceous cyst. There is a 2.7 cm rounded water density cyst more posteriorly from the right kidney. Left kidney appears unremarkable. Again renal artery origins appear stenotic. There is again a single renal artery on each side. Abdomen: Liver: Tiny hypodensity at the dome of the right lobe, 9:18, is nonspecific but could be a cyst. Biliary: No bile duct dilation. Spleen: No mass. No splenomegaly. Pancreas: No mass or duct dilation. GI tract: No dilation or wall thickening. Lymph nodes (other): No abdominal lymphadenopathy. Mesentery/Peritoneum: No ascites or mass. Retroperitoneum: No mass. Vasculature (other): Vasculature: - Abdominal aorta: No aneurysm. Diffuse arteriosclerotic calcification - Celiac and SMA: Partially calcified but grossly patent origins - Portal venous system (SMV, splenic vein, portal vein and branches): No thrombus - Hepatic veins: No thrombus - IVC: No thrombus Bones/Soft Tissues: Upper endplate partial compression of L1 vertebral body of uncertain age. Lower thorax: Motion artifact, grossly clear Slight thickening of the left adrenal gland measures negative Hounsfield units on the noncontrast images and is thought to be involvement with small adenomas. IMPRESSION: 2 cm right renal mass is indeterminate but does not show obvious contrast enhancement and could be a complex cyst. This can be further evaluated by MRI, or followed up periodically with ultrasound. 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: JANE Transcribe Date/Time: Apr 22 2022 3:15P Dictated by : JHONNY JOSHI MD This examination was interpreted and the report reviewed and electronically signed by: JHONNY JOSHI MD on Apr 22 2022 3:31PM EST [id number] [facility] PROGon 04-21-2022 NURSING PROG HNO ID: [id number] Author: Keily Rosas RN Service: Radiology Author Type: Registered Nurse Type: Nursing Progress Note Filed: 04/21/2022 2:22 PM Note Text: Radiology Service Progress Note DATE OF SERVICE: [...] Ref Range Status 03/30/2022 37 (L) >=60 mL/min/1.73m? Final Comment: Estimated Glomerular Filtration Rate (eGFR) [...] Intact SIGNATURE: Keily Rosas RN PATIENT NAME: Dick Artis DATE: April 21, 2022 TIME: 2:20 PM Normal [facility] UA DIP, URINE (POC)on 2021 BILIRUBIN UA (POCT) Negative Negative [facility] CLARITY UA (POCT) Clear [facility] COLOR UA (POCT) Yellow [facility] GLUCOSE UA (POCT) Negative Negative mg/dL [facility] HEMOGLOBIN/BLOOD UA (POCT) Negative Negative [facility] KETONE UA (POCT) Negative Negative mg/dL [facility] LEUKOCYTES UA (POCT) Moderate Abnormal Negative [facility]) Negative Negative [facility] PH UA (POCT) 7.5 4.5 - 8.0 [facility] Protein Ql (U) Negative Negative mg/dL [facility] SPECIFIC GRAVITY UA (POCT) 1.020 1 .005 - 1.030 [facility] UROBILINOGEN UA (POCT) 0.2 E.U./dL [facility] E.U./dL [facility] CTA ABD/PEL LOWER EXTREM W I VCONon 12-08-2021 Radiology Result ACTIONABLE Abnormal [facility] CREATININE BLDon 11-24-2021 Creatinine [Mass/Vol] 1.39 mg/dL High 0.58 - 0.96 mg/dL [facility] Estimated Glomerular Filtration Rate 37 mL/min/1.73m Low >=60 mL/min/1.7 3m [facility] Office Visit: carotid stenos pravin 06-14-2017 Documentation of current medications (procedure) Done Invalid Interpretation Code [facility] [employer] Work Phone: Fall risk assessment No Invalid Interpretation Code [facility] [employer] Work Phone: Tobacco smoking status NHIS Never Inva lid Interpretation Code [facility] Work Phone: Tobacco use [facility] Former smoker Invalid Interpretation Code [facility] Work Phone: Vital Signs Date Time Vital Sign Value Performing Clinician Facility 01-11-2025 15:36-0400 Body temperature 98.9 [degF] Dr. Viktoriya Manzo MD Work Phone: [facility] 01-11-2025 15:36-0400 Diastolic blood pressure 60 mm[Hg] Dr. Viktoriya Manzo MD Work Phone: 9(471)677-116247 [place] [address] 01-11-2025 15:36-0400 Heart rate 94 /min Dr. Viktoriya Manzo MD Work Phone: 8(513)989-542585 [place] [address] 01-11-2025 15:36-0400 Respiratory rate 32 /min Dr. Viktoriya Manzo MD Work Phone: 3(253)858-465985 [place] [address] 01-11-2025 15:36-0400 SaO2% (BldA) [Mass fraction] 95 % Dr. Viktoriya Manzo MD Work Phone: 5(561)983-328485 [place] [address] 01-11-2025 15:36-0400 Systolic blood pressure 94 mm[Hg] Dr. Viktoriya Manzo MD Work Phone: 0(452)192-281785 [place] [address] 01-11-2025 11:29-0400 Inhaled oxygen flow rate 2 L/min Dr. Viktoriya Manzo MD Work Phone: 1(151)603-267185 [place] [address] 01-11-2025 10:16-0400 Body height 157.[address] Viktoriya Manzo MD Work Phone: 7(004)114-904385 [place] [address] 01-11-2025 10:16-0400 Body mass index (BMI) [Ratio] 26.6 kg/m2 Dr. Viktoriya Manzo MD Work Phone: 1(471)830-411085 [place] [address] 01-11-2025 10:16-0400 Body weight [address] Viktoriya Manzo MD Work Phone: 9(697)708-777485 [place] [address] 01-07-2025 18:56-0400 Body temperature 98.4 [degF] Dr. Viktoriya Manzo MD Work Phone: 3(501)809-081085 [place] [address] 01-07-2025 18:56-0400 Diastolic blood pressure 65 mm[Hg] Dr. Viktoriya Manzo MD Work Phone: 2(365)868-947085 [place] [address] 01-07-2025 18:56-0400 Heart rate 93 /min Dr. Viktoriya Manzo MD Work Phone: 1(017)896-951385 [place] [address] 01-07-2025 18:56-0400 Respiratory rate 18 /min Dr. Viktoriya aMnzo MD Work Phone: 2(546)820-186285 [place] [address] 01-07-2025 18:56-0400 SaO2% (BldA) [Mass fraction] 94 % Dr. Viktoriya Manzo MD Work Phone: [facility] 01-07-2025 18:56-0400 Systolic blood pressure 124 mm[Hg] Dr. Viktoriya Manzo MD Work Phone: 4(563)183-259185 [place] [address] 01-07-2025 15:25-0400 Body height 157.[address] Viktoriya Manzo MD Work Phone: 8(906)579-367585 [place] [address] 01-07-2025 15:25-0400 Body mass index (BMI) [Ratio] 26.6 kg/m2 Dr. Viktoriya Manzo MD Work Phone: 2(028)288-195785 [place] [address] 01-07-2025 15:25-0400 Body weight 66.[address] Viktoriya Manzo MD Work Phone: 0(444)832-721285 [place] [address] 01-07-2025 11:08-0400 Body mass index (BMI) [Ratio] 24.8 kg/m2 Viktoriya Manzo MD Work Phone: [facility] 01-07-2025 11:08-0400 Body weight 61.51 kg Viktoriya Manzo MD Work Phone: [facility] 01-07-2025 11:08-0400 Diastolic blood pressure 56 mm[Hg] Viktoriya Manzo MD Work Phone: [facility] 01-07-2025 11:08-0400 Heart rate 92 /min Viktoriya Manzo MD Work Phone: [facility] 01-07-2025 11:08-0400 Respiratory rate 18 /min Viktoriya Manzo MD Work Phone: [facility] 01-07-2025 11:08-0400 SaO2% (BldA) [Mass fraction] 93 % Viktoriya Manzo MD Work Phone: [facility] Comment on above: 2L/M 01-07-2025 11:08-0400 Systolic blood pressure 126 mm[Hg] Viktoriya Manzo MD Work Phone: 6(881)968-746501 [place] [address] 01-01-2025 16:08-0400 Body temperature 97.1 [degF] Dr. Viktoriya Manzo MD Work Phone: 9(104)448-613785 [place] [address] 01-01-2025 16:08-0400 Diastolic blood pressure 50 mm[Hg] Dr. Viktoriya Manzo MD Work Phone: 5(338)570-371785 [place] [address] 01-01-2025 16:08-0400 Heart rate 80 /min Dr. Viktoriya Manzo MD Work Phone: 3(148)191-323685 [place] [address] 01-01-2025 16:08-0400 Respiratory rate 16 /min Dr. Viktoriya Manzo MD Work Phone: 3(532)899-159085 [place] [address] 01-01-2025 16:08-0400 SaO2% (BldA) [Mass fraction] 97 % Dr. Viktoriya Manzo MD Work Phone: 2(719)870-477485 [place] [address] 01-01-2025 16:08-0400 Systolic blood pressure 118 mm[Hg] Dr. Viktoriya Manzo MD Work Phone: 8(454)259-236385 [place] [address] 01-01-2025 16:05-0400 Inhaled oxygen flow rate 2 L/min Dr. Viktoriya Manzo MD Work Phone: 0(940)334-138985 [place] [address] 01-01-2025 14:13-0400 Body height 157.[address] Viktoriya Manzo MD Work Phone: 3(674)626-934385 [place] [address] 01-01-2025 14:13-0400 Body mass index (BMI) [Ratio] 25 kg/m2 Dr. Viktoriya Manzo MD Work Phone: 3(209)004-483685 [place] [address] 01-01-2025 14:13-0400 Body weight [address] Viktoriya Manzo MD Work Phone: 6(449)936-844385 [place] [address] 12-17-2024 07:22-0400 Body temperature 98.1 [degF] Dr. Viktoriya Manzo MD Work Phone: 8(235)949-657785 [place] [address] 12-17-2024 07:22-0400 Diastolic blood pressure 60 mm[Hg] Dr. Viktoriya Manzo MD Work Phone: 9(224)611-787885 [place] [address] 12-17-2024 07:22-0400 Heart rate 71 /min Dr. Viktoriya Manzo MD Work Phone: 5(615)912-436585 [place] [address] 12-17-2024 07:22-0400 Respiratory rate 19 /min Dr. Viktoriya Manzo MD Work Phone: 7(431)582-455485 [place] [address] 12-17-2024 07:22-0400 SaO2% (BldA) [Mass fraction] 98 % Dr. Viktoriya Manzo MD Work Phone: 2(212)764-948185 [place] [address] 12-17-2024 07:22-0400 Systolic blood pressure 161 mm[Hg] Dr. Viktoriya Manzo MD Work Phone: 0(794)837-892185 [place] [address] 12-17-2024 04:44-0400 Body height 157.[address] Viktoriya Manzo MD Work Phone: 9(872)637-889785 [place] [address] 12-17-2024 04:44-0400 Body mass index (BMI) [Ratio] 25.1 kg/m2 Dr. Viktoriya Manzo MD Work Phone: 9(699)796-591485 [place] [address] 12-17-2024 04:44-0400 Body weight 62.[address] Viktoriya Manzo MD Work Phone: 9(520)740-080385 [place] [address] 12-17-2024 04:44-0400 Inhaled oxygen concentration 2 % Dr. Viktoriya Manzo MD Work Phone: 1(393)526-788385 [place] [address] 11-30-2024 14:35-0400 Diastolic blood pressure 58 mm[Hg] Alina Delvalle MD Work Phone: 3(628)121-708301 [place] [address] 11-30-2024 14:35-0400 Heart rate 91 /min Alina Delvalle MD Work Phone: 2(354)539-350201 [place] [address] 11-30-2024 14:35-0400 Respiratory rate 15 /min Alina Delvalle MD Work Phone: 7(774)712-389301 [place] [address] 11-30-2024 14:35-0400 SaO2% (BldA) [Mass fraction] 92 % Alina Delvalle MD Work Phone: 9(495)943-799401 [place] [address] 11-30-2024 14:35-0400 Systolic blood pressure 112 mm[Hg] Alina Delvalle MD Work Phone: [facility] 11-28-2024 18:39-0400 Body temperature 98.6 [degF] Rosaura Jose Aramndo AUDIO SPECIALIST-C Work Phone: [facility] 11-28-2024 18:39-0400 Diastolic blood pressure 42 mm[Hg] Rosaura Jose Armando AUDIO SPECIALIST-C Work Phone: [facility] 11-28-2024 18:39-0400 Heart rate 74 /min Rosaura Jose Armando AUDIO SPECIALIST-C Work Phone: [facility] 11-28-2024 18:39-0400 Respiratory rate 20 /min Rosaura Jose Armando AUDIO SPECIALIST-C Work Phone: [facility] 11-28-2024 18:39-0400 SaO2% (BldA) [Mass fraction] 100 % Rosaura Jose Armando AUDIO SPECIALIST-C Work Phone: [facility] 11-28-2024 18:39-0400 Systolic blood pressure 105 mm[Hg] Rosaura Jose Armando AUDIO SPECIALIST-C Work Phone: [facility] 11-28-2024 15:32-0400 Inhaled oxygen flow rate 2 L/min Rosaura Jose Armando AUDIO SPECIALIST-C Work Phone: [facility] 11-28-2024 13:40-0400 Body mass index (BMI) [Ratio] 26.3 kg/m2 Rosaura Jose Armando AUDIO SPECIALIST-C Work Phone: [facility] 11-28-2024 13:40-0400 Body weight 66.4 kg Rosaura Jose Armando AUDIO SPECIALIST-C Work Phone: [facility] 11-28-2024 13:32-0400 Body height 158.75 cm Rosaura Jose Armando AUDIO SPECIALIST-C Work Phone: [facility] 10-17-2024 13:52-0400 Body height 158.75 cm Rosaura Jose Armando AUDIO SPECIALIST-C Work Phone: [facility] 10-17-2024 13:52-0400 Body mass index (BMI) [Ratio] 25.2 kg/m2 Rosaura Jose Armando AUDIO SPECIALIST-C Work Phone: [facility] 10-17-2024 13:52-0400 Body weight 63.5 kg Rosaura Jose Armando AUDIO SPECIALIST-C Work Phone: [facility] 10-17-2024 13:52-0400 Diastolic blood pressure 61 mm[Hg] Rosaura Jose Armando AUDIO SPECIALIST-C Work Phone: [facility] 10-17-2024 13:52-0400 Heart rate 77 /min Rosaura Jose Armando AUDIO SPECIALIST-C Work Phone: [facility] 10-17-2024 13:52-0400 Inhaled oxygen flow rate 2 L/min Rosaura Jose Armando AUDIO SPECIALIST-C Work Phone: [facility] 10-17-2024 13:52-0400 Respiratory rate 20 /min Rosaura Jose Armando AUDIO SPECIALIST-C Work Phone: [facility] 10-17-2024 13:52-0400 SaO2% (BldA) [Mass fraction] 87 % Rosaura Jose Armando AUDIO SPECIALIST-C Work Phone: [facility] 10-17-2024 13:52-0400 Systolic blood pressure 116 mm[Hg] Rosaura Jose Armando AUDIO SPECIALIST-C Work Phone: [facility] 10-05-2024 13:59-0400 Body mass index (BMI) [Ratio] 25.64 kg/m2 Viktoriya Manzo MD Work Phone: [facility] 10-05-2024 13:59-0400 Body weight 63.59 kg Viktoriya Manzo MD Work Phone: [facility] 10-05-2024 13:59-0400 Diastolic blood pressure 66 mm[Hg] Viktoriya Manzo MD Work Phone: [facility] 10-05-2024 13:59-0400 Heart rate 82 /min Viktoriya Manzo MD Work Phone: [facility] 10-05-2024 13:59-0400 Respiratory rate 16 /min Viktoriya Manzo MD Work Phone: [facility] 10-05-2024 13:59-0400 SaO2% (BldA) [Mass fraction] 92 % Viktoriya Manzo MD Work Phone: [facility] Comment on above: On 2L/min nasal canula 10-05-2024 13:59-0400 Systolic blood pressure 135 mm[Hg] Viktoriya Manzo MD Work Phone: [facility] 09-27-2024 09:19-0400 Body temperature 97 [degF] Rosaura Jose Armando AUDIO SPECIALIST-C Work Phone: [facility] 09-27-2024 09:19-0400 Diastolic blood pressure 48 mm[Hg] Rosaura Jose Armando AUDIO SPECIALIST-C Work Phone: [facility] 09-27-2024 09:19-0400 Heart rate 72 /min Rosaura Jose Armando AUDIO SPECIALIST-C Work Phone: [facility] 09-27-2024 09:19-0400 Inhaled oxygen flow rate 2 L/min Rosaura Jose Armando AUDIO SPECIALIST-C Work Phone: [facility] 09-27-2024 09:19-0400 Respiratory rate 18 /min Rosaura Jose Armando AUDIO SPECIALIST-C Work Phone: [facility] 09-27-2024 09:19-0400 SaO2% (BldA) [Mass fraction] 95 % Rosaura Jose Armando AUDIO SPECIALIST-C Work Phone: [facility] 09-27-2024 09:19-0400 Systolic blood pressure 143 mm[Hg] Rosaura Jose Armando AUDIO SPECIALIST-C Work Phone: [facility] 09-27-2024 06:03-0400 Body height 158.75 cm Rosaura Jose Armando AUDIO SPECIALIST-C Work Phone: [facility] 09-27-2024 06:03-0400 Body mass index (BMI) [Ratio] 26 kg/m2 Rosaura Jose Armando AUDIO SPECIALIST-C Work Phone: [facility] 09-27-2024 06:03-0400 Body weight 65.7 kg Rosaura Jose Armando AUDIO SPECIALIST-C Work Phone: [facility] 07-06-2024 13:06-0500 Body height 157.5 cm Viktoriya Manzo MD Work Phone: [facility] 07-06-2024 13:06-0500 Body mass index (BMI) [Ratio] 26.08 kg/m2 Viktoriya Manzo MD Work Phone: [facility] 07-06-2024 13:06-0500 Body weight 64.68 kg Viktoriya Manzo MD Work Phone: [facility] 07-06-2024 13:06-0500 Diastolic blood pressure 52 mm[Hg] Viktoriya Manzo MD Work Phone: [facility] 07-06-2024 13:06-0500 Heart rate 80 /min Viktoriya Manzo MD Work Phone: [facility] 07-06-2024 13:06-0500 SaO2% (BldA) [Mass fraction] 95 % Viktoriya Manzo MD Work Phone: [facility] Comment on above: 2L O2 nc 07-06-2024 13:06-0500 Systolic blood pressure 142 mm[Hg] Viktoriya Manzo MD Work Phone: [facility] 06-08-2024 12:46-0500 Body temperature 97.6 [degF] Rosaura Jose Armando AUDIO SPECIALIST-C Work Phone: [facility] 06-08-2024 12:46-0500 Diastolic blood pressure 58 mm[Hg] Rosaura Jose Armando AUDIO SPECIALIST-C Work Phone: [facility] 06-08-2024 12:46-0500 Heart rate 72 /min Rosaura Jose Armando AUDIO SPECIALIST-C Work Phone: [facility] 06-08-2024 12:46-0500 Inhaled oxygen flow rate 2 L/min Rosaura Jose Armando AUDIO SPECIALIST-C Work Phone: [facility] 06-08-2024 12:46-0500 Respiratory rate 18 /min Rosaura Jose Armando AUDIO SPECIALIST-C Work Phone: [facility] 06-08-2024 12:46-0500 SaO2% (BldA) [Mass fraction] 97 % Rosaura Jose Armando AUDIO SPECIALIST-C Work Phone: [facility] 06-08-2024 12:46-0500 Systolic blood pressure 118 mm[Hg] Rosaura Jose Armando AUDIO SPECIALIST-C Work Phone: [facility] 06-08-2024 04:07-0500 Body mass index (BMI) [Ratio] 27 kg/m2 Rosaura Jose Armando AUDIO SPECIALIST-C Work Phone: [facility] 06-08-2024 04:07-0500 Body weight 67 kg Rosaura Jose Armando AUDIO SPECIALIST-C Work Phone: [facility] 04-25-2024 13:51-0400 Diastolic blood pressure 72 mm[Hg] Ana Amalia PA-C Work Phone: [facility] 04-25-2024 13:51-0400 Heart rate 75 /min Ana Amalia PA-C Work Phone: [facility] 04-25-2024 13:51-0400 Respiratory rate 20 /min Ana Amalia PA-C Work Phone: [facility] 04-25-2024 13:51-0400 SaO2% (BldA) [Mass fraction] 97 % Ana Amalia PA-C Work Phone: [facility] Comment on above: [facility] 04-25-2024 13:51-0400 Systolic blood pressure 150 mm[Hg] Ana Amalia PA-C Work Phone: [facility] 04-25-2024 13:48-0400 Body mass index (BMI) [Ratio] 24.87 kg/m2 Pulm Wstr Work Phone: [facility] 04-25-2024 13:48-0400 Body weight 61.69 kg Pulm Wstr Work Phone: [facility] 04-25-2024 13:48-0400 Heart rate 84 /min Pulm Wstr Work Phone: [facility] 04-25-2024 13:48-0400 SaO2% (BldA) [Mass fraction] 94 % Pulm Wstr Work Phone: [facility] Comment on above: 2L resting 04-06-2024 09:32-0400 Diastolic blood pressure 60 mm[Hg] Rosaura Jose Armando CENTRAL SUPPLY TECH.YARD CRANE OPERATOR Work Phone: [facility] 04-06-2024 09:32-0400 Systolic blood pressure 142 mm[Hg] Rosaura Jose Armando CENTRAL SUPPLY TECH.YARD CRANE OPERATOR Work Phone: [facility] 04-06-2024 09:30-0400 Body mass index (BMI) [Ratio] 25.85 kg/m2 Rosaura Jose Armando CENTRAL SUPPLY TECH.YARD CRANE OPERATOR Work Phone: [facility] 04-06-2024 09:30-0400 Body weight 64.1 kg Rosaura Jose Armando CENTRAL SUPPLY TECH.YARD CRANE OPERATOR Work Phone: [facility] 04-06-2024 09:30-0400 Heart rate 78 /min Rosaura Jose Armanod CENTRAL SUPPLY TECH.YARD CRANE OPERATOR Work Phone: [facility] 04-06-2024 09:30-0400 SaO2% (BldA) [Mass fraction] 93 % Rosaura Jose Armando CENTRAL SUPPLY TECH.YARD CRANE OPERATOR Work Phone: [facility] 02-08-2024 10:02-0400 Body mass index (BMI) [Ratio] 25.61 kg/m2 Rosaura Jose Armando CENTRAL SUPPLY TECH.YARD CRANE OPERATOR Work Phone: [facility] 02-08-2024 10:02-0400 Body weight 63.5 kg Rosaura Jose Armando CENTRAL SUPPLY TECH.YARD CRANE OPERATOR Work Phone: [facility] 02-08-2024 10:02-0400 Diastolic blood pressure 48 mm[Hg] Rosaura Jose Armando CENTRAL SUPPLY TECH.YARD CRANE OPERATOR Work Phone: [facility] 02-08-2024 10:02-0400 Heart rate 79 /min Rosaura Jose Armando CENTRAL SUPPLY TECH.YARD CRANE OPERATOR Work Phone: [facility] 02-08-2024 10:02-0400 SaO2% (BldA) [Mass fraction] 95 % Rosaura Jose Armando CENTRAL SUPPLY TECH.YARD CRANE OPERATOR Work Phone: [facility] 02-08-2024 10:02-0400 Systolic blood pressure 120 mm[Hg] Rosaura Jose Armando CENTRAL SUPPLY TECH.YARD CRANE OPERATOR Work Phone: [facility] 12-28-2023 09:37-0400 Diastolic blood pressure 70 mm[Hg] Rosaura Jose Armando CENTRAL SUPPLY TECH.YARD CRANE OPERATOR Work Phone: [facility] 12-28-2023 09:37-0400 Systolic blood pressure 150 mm[Hg] Rosaura Jose Armando CENTRAL SUPPLY TECH.YARD CRANE OPERATOR Work Phone: [facility] 12-28-2023 09:35-0400 Body mass index (BMI) [Ratio] 25.79 kg/m2 Rosaura Jose Armando CENTRAL SUPPLY TECH.YARD CRANE OPERATOR Work Phone: [facility] 12-28-2023 09:35-0400 Body weight 63.96 kg Rosaura Jose Armando CENTRAL SUPPLY TECH.YARD CRANE OPERATOR Work Phone: [facility] 12-28-2023 09:35-0400 Heart rate 85 /min Rosaura Jose Armando CENTRAL SUPPLY TECH.YARD CRANE OPERATOR Work Phone: [facility] 12-28-2023 09:35-0400 SaO2% (BldA) [Mass fraction] 95 % Rosaura Jose Armando CENTRAL SUPPLY TECH.YARD CRANE OPERATOR Work Phone: [facility] 12-20-2023 14:45-0400 Body height 157.5 cm Ana Amalia PA-C Work Phone: [facility] 12-20-2023 14:45-0400 Body mass index (BMI) [Ratio] 26.7 kg/m2 Ana Amalia PA-C Work Phone: [facility] 12-20-2023 14:45-0400 Body weight 66.22 kg Ana Amalia PA-C Work Phone: [facility] 12-20-2023 14:45-0400 Diastolic blood pressure 62 mm[Hg] Ana Amalia PA-C Work Phone: [facility] 12-20-2023 14:45-0400 Heart rate 91 /min Ana Amalia PA-C Work Phone: [facility] 12-20-2023 14:45-0400 Respiratory rate 15 /min Ana Amalia PA-C Work Phone: [facility] 12-20-2023 14:45-0400 SaO2% (BldA) [Mass fraction] 94 % Ana Brownone PA-C Work Phone: [facility] 12-20-2023 14:45-0400 Systolic blood pressure 128 mm[Hg] Ana Brownone PA-C Work Phone: [facility] 12-20-2023 14:32-0400 Body height 157.5 cm Pulm Wstr Work Phone: [facility] 12-20-2023 14:32-0400 Body mass index (BMI) [Ratio] 26.7 kg/m2 Pulm Wstr Work Phone: [facility] 12-20-2023 14:32-0400 Body weight 66.22 kg Pulm Wstr Work Phone: [facility] 12-20-2023 14:32-0400 Heart rate 91 /min Pulm Wstr Work Phone: [facility] 12-20-2023 14:32-0400 Respiratory rate 15 /min Pulm Wstr Work Phone: [facility] 12-20-2023 14:32-0400 SaO2% (BldA) [Mass fraction] 94 % Pulm Wstr Work Phone: [facility] 11-30-2023 08:16-0400 Diastolic blood pressure 61 mm[Hg] Rosaura Jose Armando CENTRAL SUPPLY TECH.YARD CRANE OPERATOR Work Phone: [facility] Comment on above: Home Monitor 11-30-2023 08:16-0400 Heart rate 85 /min Rosaura Jose Armando CENTRAL SUPPLY TECH.YARD CRANE OPERATOR Work Phone: [facility] 11-30-2023 08:16-0400 Systolic blood pressure 136 mm[Hg] Rosaura Jose Armando CENTRAL SUPPLY TECH.YARD CRANE OPERATOR Work Phone: [facility] Comment on above: [facility] 11-30-2023 08:11-0400 Body mass index (BMI) [Ratio] 27.44 kg/m2 Rosaura Jose Armando CENTRAL SUPPLY TECH.YARD CRANE OPERATOR Work Phone: [facility] 11-30-2023 08:11-0400 Body weight 68.04 kg Rosaura Jose Armando CENTRAL SUPPLY TECH.YARD CRANE OPERATOR Work Phone: [facility] 11-30-2023 08:11-0400 SaO2% (BldA) [Mass fraction] 95 % Rosaura Jose Armando CENTRAL SUPPLY TECH.YARD CRANE OPERATOR Work Phone: [facility] 11-16-2023 09:46-0400 Diastolic blood pressure 58 mm[Hg] Rosaura Jose Armando CENTRAL SUPPLY TECH.YARD CRANE OPERATOR Work Phone: [facility] 11-16-2023 09:46-0400 Systolic blood pressure 154 mm[Hg] Rosaura Jose Armando CENTRAL SUPPLY TECH.YARD CRANE OPERATOR Work Phone: [facility] 11-16-2023 09:44-0400 Body mass index (BMI) [Ratio] 28.17 kg/m2 Rosaura Jose Armando CENTRAL SUPPLY TECH.YARD CRANE OPERATOR Work Phone: [facility] 11-16-2023 09:44-0400 Body weight 69.85 kg Rosaura Jose Armando CENTRAL SUPPLY TECH.YARD CRANE OPERATOR Work Phone: [facility] 11-16-2023 09:44-0400 Heart rate 96 /min Rosaura Jose Armando CENTRAL SUPPLY TECH.YARD CRANE OPERATOR Work Phone: [facility] 11-16-2023 09:44-0400 SaO2% (BldA) [Mass fraction] 91 % Rosaura Jose Armando CENTRAL SUPPLY TECH.YARD CRANE OPERATOR Work Phone: [facility] 11-06-2023 13:22-0400 Inhaled oxygen flow rate 2 L/min Dr. Mady Dunn Work Phone: [facility] 11-06-2023 13:22-0400 SaO2% (BldA) [Mass fraction] 94 % Dr. Mady Dunn Work Phone: [facility] 04-21-2024 13:10-0400 Body temperature 97.9 [degF] Dr. Mady Dunn Work Phone: 5(263)084-691585 [place] [address] 11-06-2023 13:10-0400 Diastolic blood pressure 49 mm[Hg] Dr. Mady Dunn Work Phone: 0(720)524-167285 [place] [address] 11-06-2023 13:10-0400 Heart rate 78 /min Dr. Mady Dunn Work Phone: 7(982)027-880685 [place] [address] 11-06-2023 13:10-0400 Respiratory rate 16 /min Dr. Mady Dunn Work Phone: 5(625)164-433985 [place] [address] 11-06-2023 13:10-0400 Systolic blood pressure 124 mm[Hg] Dr. Mady Dunn Work Phone: 5(798)623-436985 [place] [address] 11-06-2023 04:58-0400 Body mass index (BMI) [Ratio] 28.5 kg/m2 Dr. Mady Dunn Work Phone: 7(497)676-663585 [place] [address] 11-06-2023 04:58-0400 Body weight 70.[address] Mady Dunn Work Phone: 2(771)330-881785 [place] [address] 11-04-2023 13:33-0400 Body height 157.[address] Mady Dunn Work Phone: 6(161)148-161785 [place] [address] 11-03-2023 17:48-0400 Diastolic blood pressure 55 mm[Hg] Dr. Mady Dunn Work Phone: 8(300)334-052485 [place] [address] 11-03-2023 17:48-0400 Heart rate 86 /min Dr. Mady Dunn Work Phone: 0(016)634-283085 [place] [address] 11-03-2023 17:48-0400 Inhaled oxygen flow rate 2 L/min Dr. Mady Dunn Work Phone: 6(380)514-714185 [place] [address] 11-03-2023 17:48-0400 Respiratory rate 20 /min Dr. Mady Dunn Work Phone: 2(455)729-894185 [place] [address] 11-03-2023 17:48-0400 SaO2% (BldA) [Mass fraction] 95 % Dr. Mady Dunn Work Phone: [facility] 11-03-2023 17:48-0400 Systolic blood pressure 143 mm[Hg] Dr. Mady Dunn Work Phone: [facility] 11-03-2023 17:00-0400 Body temperature 98.1 [degF] Dr. Mady Dunn Work Phone: 0(374)480-999647 [place] [address] 11-03-2023 11:37-0400 Body height 157.[address] Mady Dunn Work Phone: 9(224)603-020247 [place] [address] 11-03-2023 11:37-0400 Body mass index (BMI) [Ratio] 26.6 kg/m2 Dr. Mady Dunn Work Phone: 1(102)035-509547 [place] [address] 11-03-2023 11:37-0400 Body weight 66.[address] Mady Dunn Work Phone: [facility] 10-19-2023 11:13-0400 Body temperature 97 [degF] Rosaura Jose Armando CENTRAL SUPPLY TECH.YARD CRANE OPERATOR Work Phone: [facility] 10-19-2023 11:13-0400 Body weight 67.13 kg Rosaura Jose Armando CENTRAL SUPPLY TECH.YARD CRANE OPERATOR Work Phone: [facility] 10-19-2023 11:13-0400 Diastolic blood pressure 60 mm[Hg] Rosaura Jose Armando CENTRAL SUPPLY TECH.YARD CRANE OPERATOR Work Phone: [facility] 10-19-2023 11:13-0400 Heart rate 80 /min Rosaura Jose Armando CENTRAL SUPPLY TECH.YARD CRANE OPERATOR Work Phone: [facility] 10-19-2023 11:13-0400 Respiratory rate 28 /min Rosaura Jose Armando CENTRAL SUPPLY TECH.YARD CRANE OPERATOR Work Phone: [facility] 10-19-2023 11:13-0400 SaO2% (BldA) [Mass fraction] 90 % Rosaura Jose Armando CENTRAL SUPPLY TECH.YARD CRANE OPERATOR Work Phone: [facility] 10-19-2023 11:13-0400 Systolic blood pressure 134 mm[Hg] Rosaura Suárez APRN.CNP Work Phone: [facility] 10-15-2023 11:02-0400 Body temperature 97.6 [degF] Dr. Mady Dunn Work Phone: [facility] 10-15-2023 11:02-0400 Diastolic blood pressure 56 mm[Hg] Dr. Mady Dunn Work Phone: [facility] 10-15-2023 11:02-0400 Heart rate 93 /min Dr. Mady Dunn Work Phone: 9(926)342-032385 [place] [address] 10-15-2023 11:02-0400 Inhaled oxygen flow rate 3 L/min Dr. Mady Dunn Work Phone: [facility] 10-15-2023 11:02-0400 Respiratory rate 20 /min Dr. Mady Dunn Work Phone: 4(584)102-841247 [place] [address] 10-15-2023 11:02-0400 SaO2% (BldA) [Mass fraction] 96 % Dr. Mady Dunn Work Phone: [facility] 10-15-2023 11:02-0400 Systolic blood pressure 114 mm[Hg] Dr. Mady Dunn Work Phone: [facility] 10-14-2023 06:00-0400 Body mass index (BMI) [Ratio] 27.2 kg/m2 Dr. Mady Dunn Work Phone: [facility] 10-14-2023 06:00-0400 Body weight 67.[address] Mady Dunn Work Phone: 1(563)835-757647 [place] [address] 10-12-2023 13:08-0400 Body height 157.[address] Mady Dunn Work Phone: [facility] 10-05-2023 08:50-0400 Body temperature 98 [degF] Dr. Mady Dunn Work Phone: [facility] 10-05-2023 08:50-0400 Diastolic blood pressure 51 mm[Hg] Dr. Mady Dunn Work Phone: 1(683)536-353785 [place] [address] 10-05-2023 08:50-0400 Heart rate 110 /min Dr. Mady Dunn Work Phone: 9(440)908-733285 [place] [address] 10-05-2023 08:50-0400 Inhaled oxygen flow rate 2 L/min Dr. Mady Dunn Work Phone: 4(769)459-862085 [place] [address] 10-05-2023 08:50-0400 Respiratory rate 20 /min Dr. Mady Dunn Work Phone: 1(180)449-742185 [place] [address] 10-05-2023 08:50-0400 SaO2% (BldA) [Mass fraction] 93 % Dr. Mady Dunn Work Phone: 3(999)794-287685 [place] [address] 10-05-2023 08:50-0400 Systolic blood pressure 107 mm[Hg] Dr. Mady Dunn Work Phone: 5(408)763-629185 [place] [address] 10-03-2023 12:06-0400 Body height 157.[address] Mady Dunn Work Phone: 1(425)629-062285 [place] [address] 10-03-2023 12:06-0400 Body weight 67.[address] Mady Dunn Work Phone: 5(868)816-510885 [place] [address] 10-03-2023 01:49-0400 Body mass index (BMI) [Ratio] 27.1 kg/m2 Dr. Mady Dunn Work Phone: 4(673)661-337885 [place] [address] 10-03-2023 00:45-0400 Body temperature 98.2 [degF] Dr. Mady Dunn Work Phone: 7(597)077-825085 [place] [address] 10-03-2023 00:45-0400 Diastolic blood pressure 46 mm[Hg] Dr. Mady Dunn Work Phone: 8(794)640-471885 [place] [address] 10-03-2023 00:45-0400 Heart rate 106 /min Dr. Mady Dunn Work Phone: 6(320)572-296585 [place] [address] 10-03-2023 00:45-0400 Respiratory rate 29 /min Dr. Mady Dunn Work Phone: 0(480)824-137185 [place] [address] 10-03-2023 00:45-0400 SaO2% (BldA) [Mass fraction] 97 % Dr. Mady Dunn Work Phone: 7(372)534-338685 [place] [address] 10-03-2023 00:45-0400 Systolic blood pressure 112 mm[Hg] Dr. Mady Dunn Work Phone: 0(010)535-642947 [place] [address] 10-02-2023 19:03-0400 Body height 157.[address] Mady Dunn Work Phone: 8(072)220-804285 [place] [address] 10-02-2023 19:03-0400 Body mass index (BMI) [Ratio] 27.5 kg/m2 Dr. Mady Dunn Work Phone: 9(690)849-205185 [place] [address] 10-02-2023 19:03-0400 Body weight 68.[address] Mady Dunn Work Phone: 6(270)890-688985 [place] [address] 10-02-2023 18:40-0400 Heart rate 101 /min Dr. Mady Dunn Work Phone: 6(967)711-636885 [place] [address] 10-02-2023 18:40-0400 Respiratory rate 32 /min Dr. Mady Dunn Work Phone: 5(967)039-215685 [place] [address] 10-02-2023 08:39-0400 Body temperature 97.3 [degF] Dr. Mady Dunn Work Phone: 3(001)021-604347 [place] [address] 10-02-2023 08:39-0400 Diastolic blood pressure 40 mm[Hg] Dr. Mady Dunn Work Phone: 6(122)326-367185 [place] [address] 10-02-2023 08:39-0400 Inhaled oxygen flow rate 3 L/min Dr. Mady Dunn Work Phone: 2(934)657-881085 [place] [address] 10-02-2023 08:39-0400 SaO2% (BldA) [Mass fraction] 94 % Dr. Mady Dunn Work Phone: 1(015)858-315847 [place] [address] 10-02-2023 08:39-0400 Systolic blood pressure 107 mm[Hg] Dr. Mady Dunn Work Phone: 7(598)602-138785 [place] [address] 10-02-2023 06:00-0400 Body mass index (BMI) [Ratio] 26.9 kg/m2 Dr. Mady Dunn Work Phone: 4(714)778-184485 [place] [address] 10-02-2023 06:00-0400 Body weight 66.[address] Mady Dunn Work Phone: 9(419)363-429585 [place] [address] 10-01-2023 05:59-0400 Inhaled oxygen concentration 95 % Dr. Mady Dunn Work Phone: 3(842)806-185285 [place] [address] 09-30-2023 19:58-0400 Heart rate 107 /min Dr. Mady Dunn Work Phone: 5(494)430-234885 [place] [address] 09-30-2023 19:58-0400 Inhaled oxygen concentration 94 % Dr. Mady Dunn Work Phone: 9(580)601-556285 [place] [address] 09-30-2023 19:58-0400 Inhaled oxygen flow rate 2 L/min Dr. Mady Dunn Work Phone: 4(919)108-827685 [place] [address] 09-30-2023 19:58-0400 Respiratory rate 20 /min Dr. Mady Dunn Work Phone: 9(364)130-185085 [place] [address] 09-30-2023 15:34-0400 Body temperature 97.7 [degF] Dr. Mady Dunn Work Phone: 5(328)303-055285 [place] [address] 09-30-2023 15:34-0400 Diastolic blood pressure 36 mm[Hg] Dr. Mady Dunn Work Phone: 2(309)982-009485 [place] [address] 09-30-2023 15:34-0400 SaO2% (BldA) [Mass fraction] 96 % Dr. Mady Dunn Work Phone: 7(928)354-366485 [place] [address] 09-30-2023 15:34-0400 Systolic blood pressure 107 mm[Hg] Dr. Mady Dunn Work Phone: [facility] 09-30-2023 05:59-0400 Body mass index (BMI) [Ratio] 58.4 kg/m2 Dr. Mady Dunn Work Phone: [facility] 09-30-2023 05:59-0400 Body weight 144.[address] Mady Dunn Work Phone: 1(460)099-567485 [place] [address] 09-28-2023 15:20-0400 Body height 157.[address] Mady Dunn Work Phone: 1(645)714-493147 [place] [address] 09-19-2023 01:25-0500 Heart rate 68 /min Dr. Mady Dunn Work Phone: 2(632)380-103985 [place] [address] 09-19-2023 01:25-0500 Respiratory rate 36 /min Dr. Mady Dunn Work Phone: 6(350)033-815685 [place] [address] 09-18-2023 22:08-0500 Diastolic blood pressure 49 mm[Hg] Dr. Mady Dunn Work Phone: 7(550)521-430547 [place] [address] 09-18-2023 22:08-0500 Inhaled oxygen flow rate 3 L/min Dr. Mady Dunn Work Phone: 6(365)504-397047 [place] [address] 09-18-2023 22:08-0500 SaO2% (BldA) [Mass fraction] 96 % Dr. Mady Dunn Work Phone: 3(301)320-368147 [place] [address] 09-18-2023 22:08-0500 Systolic blood pressure 131 mm[Hg] Dr. Mady Dunn Work Phone: 1(312)204-350647 [place] [address] 09-18-2023 08:13-0500 Body temperature 98 [degF] Dr. Mady Dunn Work Phone: 8(778)939-752247 [place] [address] 09-16-2023 13:10-0500 Body temperature 98.2 [degF] Dr. Mady Dunn Work Phone: 1(155)053-985847 [place] [address] 09-16-2023 13:10-0500 Diastolic blood pressure 53 mm[Hg] Dr. Mady Dunn Work Phone: [facility] 09-16-2023 13:10-0500 Heart rate 82 /min Dr. Mady Dunn Work Phone: 1(209)597-604647 [place] [address] 09-16-2023 13:10-0500 Respiratory rate 16 /min Dr. Mady Dunn Work Phone: 5(564)000-625285 [place] [address] 09-16-2023 13:10-0500 SaO2% (BldA) [Mass fraction] 93 % Dr. Mady Dunn Work Phone: 2(528)876-334685 [place] [address] 09-16-2023 13:10-0500 Systolic blood pressure 128 mm[Hg] Dr. Mady Dunn Work Phone: 5(949)869-390685 [place] [address] 09-16-2023 13:05-0500 Inhaled oxygen flow rate 3 L/min Dr. Mady Dunn Work Phone: 8(644)303-235185 [place] [address] 09-16-2023 11:16-0500 Body height 157.[address] Mady Dunn Work Phone: 8(263)796-875685 [place] [address] 09-16-2023 11:16-0500 Body mass index (BMI) [Ratio] 25.6 kg/m2 Dr. Mady Dunn Work Phone: 9(791)985-443685 [place] [address] 09-16-2023 11:16-0500 Body weight 63.[address] Mady Dunn Work Phone: 5(923)448-119285 [place] [address] 09-14-2023 18:53-0500 Heart rate 92 /min Dr. Mady Dunn Work Phone: 8(574)162-947985 [place] [address] 09-14-2023 18:53-0500 Respiratory rate 22 /min Dr. Mady Dunn Work Phone: 9(194)657-094785 [place] [address] 09-14-2023 16:05-0500 Inhaled oxygen flow rate 2.5 L/min Dr. Mady Dunn Work Phone: 0(723)340-609385 [place] [address] 09-14-2023 16:05-0500 SaO2% (BldA) [Mass fraction] 94 % Dr. Mady Dunn Work Phone: 2(020)647-675847 [place] [address] 09-14-2023 16:00-0500 Body temperature 97.9 [degF] Dr. Mady Dunn Work Phone: 2(779)130-231285 [place] [address] 09-14-2023 16:00-0500 Diastolic blood pressure 46 mm[Hg] Dr. Mady Dunn Work Phone: 7(154)[phone] [place] [address] 09-14-2023 16:00-0500 Systolic blood pressure 129 mm[Hg] Dr. Mady Dunn Work Phone: 7(594)[phone] [place] [address] 09-14-2023 14:03-0500 Body temperature 96.7 [degF] Dr. Mady Dunn Work Phone: 6(067)094-937985 [place] [address] 09-14-2023 14:03-0500 Diastolic blood pressure 44 mm[Hg] Dr. Mady Dunn Work Phone: 9(776)515-282985 [place] [address] 09-14-2023 14:03-0500 Heart rate 71 /min Dr. Mady Dunn Work Phone: 6(034)308-683985 [place] [address] 09-14-2023 14:03-0500 Respiratory rate 16 /min Dr. Mady Dunn Work Phone: 9(966)381-880785 [place] [address] 09-14-2023 14:03-0500 SaO2% (BldA) [Mass fraction] 94 % Dr. Mady Dunn Work Phone: 3(316)[phone] [place] [address] 09-14-2023 14:03-0500 Systolic blood pressure 96 mm[Hg] Dr. Mady Dunn Work Phone: 5(493)894-806885 [place] [address] 09-14-2023 13:29-0500 Inhaled oxygen flow rate 2 L/min Dr. Mady Dunn Work Phone: 5(950)[phone] [address] [place] [address] 09-14-2023 08:42-0500 Body height 157.[address] Mady Dunn Work Phone: 7(741)333-413147 [place] [address] 09-13-2023 14:07-0500 Body weight 66.[address] Mady Dunn Work Phone: 6(032)958-565885 [place] [address] 09-13-2023 09:13-0500 Body mass index (BMI) [Ratio] 26.8 kg/m2 Dr. Mady Dunn Work Phone: 7(576)290-254385 [place] [address] 09-12-2023 14:08-0500 Body temperature 98 [degF] Dr. Mady Dunn Work Phone: 3(728)245-838285 [place] [address] 09-12-2023 14:08-0500 Diastolic blood pressure 44 mm[Hg] Dr. Mady Dunn Work Phone: 8(097)024-667685 [place] [address] 09-12-2023 14:08-0500 Heart rate 100 /min Dr. Mady Dunn Work Phone: 0(145)800-681785 [place] [address] 09-12-2023 14:08-0500 Inhaled oxygen flow rate 5 L/min Dr. Mady Dunn Work Phone: 2(664)410-224285 [place] [address] 09-12-2023 14:08-0500 Respiratory rate 18 /min Dr. Mady Dunn Work Phone: 1(830)005-968685 [place] [address] 09-12-2023 14:08-0500 SaO2% (BldA) [Mass fraction] 96 % Dr. Mady Dunn Work Phone: 4(540)886-765285 [place] [address] 09-12-2023 14:08-0500 Systolic blood pressure 92 mm[Hg] Dr. Mady Dunn Work Phone: 6(827)004-465185 [place] [address] 09-10-2023 04:25-0500 Inhaled oxygen concentration 30 % Dr. Mady Dunn Work Phone: 6(146)792-390285 [place] [address] 09-08-2023 15:00-0500 Body height 157.[address] Mady Dunn Work Phone: 1(584)940-778085 [place] [address] 09-08-2023 15:00-0500 Body weight 66.[address] Mady Dunn Work Phone: 7(812)458-608985 [place] [address] 09-03-2023 13:21-0500 Body mass index (BMI) [Ratio] 26.7 kg/m2 Dr. Mady Dunn Work Phone: 2(183)800-625547 [place] [address] 09-03-2023 12:37-0500 Diastolic blood pressure 66 mm[Hg] Dr. Mady Dunn Work Phone: 4(612)134-075885 [place] [address] 09-03-2023 12:37-0500 Heart rate 99 /min Dr. Mady Dunn Work Phone: 3(667)873-888485 [place] [address] 09-03-2023 12:37-0500 Inhaled oxygen flow rate 2 L/min Dr. Mady Dunn Work Phone: 7(605)993-967785 [place] [address] 09-03-2023 12:37-0500 Respiratory rate 24 /min Dr. Mady Dunn Work Phone: 5(118)556-185385 [place] [address] 09-03-2023 12:37-0500 SaO2% (BldA) [Mass fraction] 92 % Dr. Mady Dunn Work Phone: 9(678)671-497185 [place] [address] 09-03-2023 12:37-0500 Systolic blood pressure 115 mm[Hg] Dr. Mady Dunn Work Phone: 6(820)356-319685 [place] [address] 09-03-2023 11:43-0500 Body temperature 97.2 [degF] Dr. Mady Dunn Work Phone: 3(078)617-984785 [place] [address] 09-03-2023 09:37-0500 Body height 157.[address] Mady Dunn Work Phone: 3(820)649-296985 [place] [address] 09-03-2023 09:37-0500 Body mass index (BMI) [Ratio] 27.6 kg/m2 Dr. Mady Dunn Work Phone: 9(007)728-590347 [place] [address] 09-03-2023 09:37-0500 Body weight 68.[address] Mady Dunn Work Phone: 4(268)594-904685 [place] [address] 09-02-2023 07:45-0500 Body weight 66 kg Rosaura Suárez APRN.CNP Work Phone: [facility] 09-02-2023 07:45-0500 Diastolic blood pressure 62 mm[Hg] Rosaura Jose Armando CENTRAL SUPPLY TECH.YARD CRANE OPERATOR Work Phone: [facility] 09-02-2023 07:45-0500 Heart rate 72 /min Rosaura Jose Armando CENTRAL SUPPLY TECH.YARD CRANE OPERATOR Work Phone: [facility] 09-02-2023 07:45-0500 Respiratory rate 24 /min Rosaura Jose Armando CENTRAL SUPPLY TECH.YARD CRANE OPERATOR Work Phone: [facility] 09-02-2023 07:45-0500 SaO2% (BldA) [Mass fraction] 98 % Rosaura Jose Armando CENTRAL SUPPLY TECH.YARD CRANE OPERATOR Work Phone: [facility] 09-02-2023 07:45-0500 Systolic blood pressure 110 mm[Hg] Rosaura Jose Armando CENTRAL SUPPLY TECH.YARD CRANE OPERATOR Work Phone: [facility] 08-20-2023 11:11-0500 Diastolic blood pressure 49 mm[Hg] Dr. Mady Dunn Work Phone: [facility] 08-20-2023 11:11-0500 Systolic blood pressure 126 mm[Hg] Dr. Mady Dunn Work Phone: [facility] 08-20-2023 10:00-0500 Inhaled oxygen flow rate 2 L/min Dr. Mady Dunn Work Phone: [facility] 08-20-2023 09:58-0500 SaO2% (BldA) [Mass fraction] 90 % Dr. Mady Dunn Work Phone: [facility] 08-20-2023 09:50-0500 Body temperature 97.8 [degF] Dr. Mady Dunn Work Phone: [facility] 08-20-2023 09:50-0500 Heart rate 86 /min Dr. Mady Dunn Work Phone: [facility] 08-20-2023 09:50-0500 Respiratory rate 16 /min Dr. Mady Dunn Work Phone: [facility] 08-19-2023 14:17-0500 Body height 157.[address] Mady Dunn Work Phone: 7(633)968-825385 [place] [address] 08-19-2023 14:17-0500 Body weight 66.[address] Mady Dunn Work Phone: 8(763)973-922285 [place] [address] 08-18-2023 17:21-0500 Body mass index (BMI) [Ratio] 26.6 kg/m2 Dr. Mady Dunn Work Phone: 7(825)824-551785 [place] [address] 08-18-2023 15:56-0500 Body mass index (BMI) [Ratio] 27.8 kg/m2 Dr. Mady Dunn Work Phone: 9(184)657-559385 [place] [address] 08-18-2023 15:56-0500 Body weight 68.[address] Mady Dunn Work Phone: 4(427)884-042685 [place] [address] 08-18-2023 15:12-0500 Diastolic blood pressure 60 mm[Hg] Dr. Mady Dunn Work Phone: 4(690)417-700785 [place] [address] 08-18-2023 15:12-0500 Systolic blood pressure 121 mm[Hg] Dr. Mady Dunn Work Phone: 4(975)771-051785 [place] [address] 08-18-2023 14:46-0500 Inhaled oxygen flow rate 2 L/min Dr. Mady Dunn Work Phone: 5(913)780-747685 [place] [address] 08-18-2023 14:16-0500 Heart rate 101 /min Dr. Mady Dunn Work Phone: 4(875)471-092985 [place] [address] 08-18-2023 14:16-0500 Respiratory rate 16 /min Dr. Mady Dunn Work Phone: 6(772)991-900585 [place] [address] 08-18-2023 14:02-0500 SaO2% (BldA) [Mass fraction] 93 % Dr. Mady Dunn Work Phone: 8(282)624-026585 [place] [address] 08-18-2023 13:12-0500 Body height 157.[address] Mady Dunn Work Phone: 1(025)799-996185 [place] [address] 08-18-2023 13:12-0500 Body temperature 97.5 [degF] Dr. Mady Dunn Work Phone: 1(232)429-970385 [place] [address] 08-17-2023 13:43-0500 Body mass index (BMI) [Ratio] 27.1 kg/m2 Dr. Mady Dunn Work Phone: 3(975)918-284085 [place] [address] 08-17-2023 13:43-0500 Diastolic blood pressure 57 mm[Hg] Dr. Mady Dunn Work Phone: 1(957)150-528385 [place] [address] 08-17-2023 13:43-0500 Systolic blood pressure 112 mm[Hg] Dr. Mady Dunn Work Phone: 0(097)023-851185 [place] [address] 08-17-2023 13:43-0500 SaO2% (BldA) [Mass fraction] 88 % Dr. Mady Dunn Work Phone: 8(277)854-582485 [place] [address] 08-17-2023 13:24-0500 Body weight 67.[address] Mady Dunn Work Phone: 0(119)185-573985 [place] [address] 08-17-2023 13:24-0500 Heart rate 74 /min Dr. Mady Dunn Work Phone: 1(896)605-586585 [place] [address] 08-17-2023 13:24-0500 Respiratory rate 18 /min Dr. Mady Dunn Work Phone: 5(181)313-093585 [place] [address] 07-27-2023 23:01-0500 Diastolic blood pressure 48 mm[Hg] Dr. Mady Dunn Work Phone: 2(483)162-755585 [place] [address] 07-27-2023 23:01-0500 Heart rate 78 /min Dr. Mady Dunn Work Phone: 2(008)988-457785 [place] [address] 07-27-2023 23:01-0500 Respiratory rate 20 /min Dr. Mady Dunn Work Phone: 6(867)022-694985 [place] [address] 07-27-2023 23:01-0500 SaO2% (BldA) [Mass fraction] 95 % Dr. Mady Dunn Work Phone: [facility] 07-27-2023 23:01-0500 Systolic blood pressure 144 mm[Hg] Dr. Mady Dunn Work Phone: [facility] 07-27-2023 16:32-0500 Body height 157.[address] Mady Dunn Work Phone: 5(036)036-099747 [place] [address] 07-27-2023 16:32-0500 Body temperature 98.2 [degF] Dr. Mady Dunn Work Phone: 1(246)295-170447 [place] [address] 07-01-2023 13:59-0500 Body weight 68.49 kg Rosaura Jose Armando CENTRAL SUPPLY TECH.YARD CRANE OPERATOR Work Phone: 8(436)591-740901 [place] [address] 07-01-2023 13:59-0500 Diastolic blood pressure 50 mm[Hg] Rosaura Jose Armando CENTRAL SUPPLY TECH.YARD CRANE OPERATOR Work Phone: 7(072)023-202301 [place] [address] 07-01-2023 13:59-0500 Heart rate 68 /min Rosaura Jose Armando CENTRAL SUPPLY TECH.YARD CRANE OPERATOR Work Phone: [facility] 07-01-2023 13:59-0500 SaO2% (BldA) [Mass fraction] 96 % Rosaura Jose Armando CENTRAL SUPPLY TECH.YARD CRANE OPERATOR Work Phone: [facility] 07-01-2023 13:59-0500 Systolic blood pressure 118 mm[Hg] Rosaura Jose Armando CENTRAL SUPPLY TECH.YARD CRANE OPERATOR Work Phone: 0(966)453-154301 [place] [address] 06-25-2023 11:55-0500 SaO2% (BldA) [Mass fraction] 90 % Dr. Mady Dunn Work Phone: [facility] 06-25-2023 10:42-0500 Heart rate 75 /min Dr. Mady Dunn Work Phone: 3(104)649-751647 [place] [address] 06-25-2023 10:42-0500 Respiratory rate 18 /min Dr. Mady Dunn Work Phone: 3(492)193-521747 [place] [address] 06-25-2023 09:06-0500 Body temperature 97.6 [degF] Dr. Mady Dunn Work Phone: [facility] 06-25-2023 09:06-0500 Diastolic blood pressure 45 mm[Hg] Dr. Mady Dunn Work Phone: [facility] 06-25-2023 09:06-0500 Systolic blood pressure 129 mm[Hg] Dr. Mady Dunn Work Phone: [facility] 06-25-2023 08:58-0500 Inhaled oxygen flow rate 92 L/min Dr. Mady Dunn Work Phone: [facility] 06-24-2023 14:08-0500 Body weight 70.[address] Mady Dunn Work Phone: [facility] 06-19-2023 14:07-0500 Body mass index (BMI) [Ratio] 29.5 kg/m2 Dr. Mady Dunn Work Phone: [facility] 06-19-2023 13:05-0500 Body temperature 98 [degF] [facility] 06-19-2023 13:05-0500 Diastolic blood pressure 60 mm[Hg] [facility] 06-19-2023 13:05-0500 Heart rate 89 /min [facility] 06-19-2023 13:05-0500 Inhaled oxygen flow rate 3 L/min [facility] 06-19-2023 13:05-0500 Respiratory rate 31 /min [facility] 06-19-2023 13:05-0500 SaO2% (BldA) [Mass fraction] 94 % [facility] 06-19-2023 13:05-0500 Systolic blood pressure 148 mm[Hg] [facility] 06-19-2023 10:51-0500 Body height 157.48 cm [facility] 06-19-2023 10:51-0500 Body mass index (BMI) [Ratio] 28.5 kg/m2 [facility] 06-19-2023 10:51-0500 Body weight 70.76 kg [facility] 05-23-2023 07:53-0500 Diastolic blood pressure 56 mm[Hg] Rosaura Jose Armando CENTRAL SUPPLY TECH.YARD CRANE OPERATOR Work Phone: [facility] 05-23-2023 07:53-0500 Heart rate 70 /min Rosaura Jose Armando CENTRAL SUPPLY TECH.YARD CRANE OPERATOR Work Phone: [facility] 05-23-2023 07:53-0500 Systolic blood pressure 143 mm[Hg] Rosaura Jose Armando CENTRAL SUPPLY TECH.YARD CRANE OPERATOR Work Phone: [facility] 05-23-2023 07:51-0500 Body weight 70.76 kg Rosaura Jose Armando CENTRAL SUPPLY TECH.YARD CRANE OPERATOR Work Phone: [facility] 05-23-2023 07:51-0500 SaO2% (BldA) [Mass fraction] 97 % Rosaura Jose Armando CENTRAL SUPPLY TECH.YARD CRANE OPERATOR Work Phone: [facility] 05-06-2023 08:58-0400 Diastolic blood pressure 62 mm[Hg] Rosaura Jose Armando CENTRAL SUPPLY TECH.YARD CRANE OPERATOR Work Phone: [facility] 05-06-2023 08:58-0400 Systolic blood pressure 164 mm[Hg] Rosaura Jose Armando CENTRAL SUPPLY TECH.YARD CRANE OPERATOR Work Phone: [facility] 05-06-2023 08:56-0400 Body weight 71.67 kg Orsaura Jose Armando CENTRAL SUPPLY TECH.YARD CRANE OPERATOR Work Phone: [facility] 05-06-2023 08:56-0400 Heart rate 68 /min Rosaura Jose Armando CENTRAL SUPPLY TECH.YARD CRANE OPERATOR Work Phone: [facility] 05-06-2023 08:56-0400 SaO2% (BldA) [Mass fraction] 97 % Rosaura Jose Armando CENTRAL SUPPLY TECH.YARD CRANE OPERATOR Work Phone: [facility] 04-16-2023 14:37-0400 Body height 157.48 cm [facility] 04-16-2023 14:37-0400 Body mass index (BMI) [Ratio] 28.9 kg/m2 [facility] 04-16-2023 14:37-0400 Body temperature 97.9 [degF] [facility] 04-16-2023 14:37-0400 Body weight 71.66 kg [facility] 04-16-2023 14:37-0400 Diastolic blood pressure 50 mm[Hg] [facility] 04-16-2023 14:37-0400 Heart rate 83 /min [facility] 04-16-2023 14:37-0400 Respiratory rate 20 /min [facility] 04-16-2023 14:37-0400 SaO2% (BldA) [Mass fraction] 98 % [facility] 04-16-2023 14:37-0400 Systolic blood pressure 158 mm[Hg] [facility] 03-23-2023 08:52-0400 Diastolic blood pressure 52 mm[Hg] Rosaura Jose Armando CENTRAL SUPPLY TECH.YARD CRANE OPERATOR Work Phone: [facility] 03-23-2023 08:52-0400 Systolic blood pressure 130 mm[Hg] Rosaura Jose Armando CENTRAL SUPPLY TECH.YARD CRANE OPERATOR Work Phone: [facility] 03-23-2023 08:51-0400 Body weight 70.76 kg Rosaura Jose Armando CENTRAL SUPPLY TECH.YARD CRANE OPERATOR Work Phone: [facility] 03-23-2023 08:51-0400 Heart rate 71 /min Rosaura Jose Armando CENTRAL SUPPLY TECH.YARD CRANE OPERATOR Work Phone: [facility] 03-23-2023 08:51-0400 SaO2% (BldA) [Mass fraction] 97 % Rosaura Jose Armando CENTRAL SUPPLY TECH.YARD CRANE OPERATOR Work Phone: [facility] 12-30-2022 17:06-0400 Body height 157.[address] Mady Dunn Work Phone: [facility] 12-30-2022 17:06-0400 Body mass index (BMI) [Ratio] 30.1 kg/m2 Dr. Mady Dunn Work Phone: [facility] 12-30-2022 17:06-0400 Body temperature 98 [degF] Dr. Mady Dunn Work Phone: [facility] 12-30-2022 17:06-0400 Body weight 74.[address] Mady Dunn Work Phone: [facility] 12-30-2022 17:06-0400 Diastolic blood pressure 40 mm[Hg] Dr. Mady Dunn Work Phone: 6(350)989-051985 [place] [address] 12-30-2022 17:06-0400 Heart rate 69 /min Dr. Mady Dunn Work Phone: 0(279)956-655985 [place] [address] 12-30-2022 17:06-0400 Respiratory rate 14 /min Dr. Mady Dunn Work Phone: 7(654)168-509985 [place] [address] 12-30-2022 17:06-0400 SaO2% (BldA) [Mass fraction] 97 % Dr. Mady Dunn Work Phone: 0(197)237-078385 [place] [address] 12-30-2022 17:06-0400 Systolic blood pressure 133 mm[Hg] Dr. Mady Dunn Work Phone: 7(305)188-687685 [place] [address] 12-09-2022 12:24-0400 Diastolic blood pressure 61 mm[Hg] Dr. Mady Dunn Work Phone: 4(976)586-305285 [place] [address] 12-09-2022 12:24-0400 Heart rate 70 /min Dr. Mady Dunn Work Phone: 0(023)768-068785 [place] [address] 12-09-2022 12:24-0400 Respiratory rate 18 /min Dr. Mady Dunn Work Phone: 2(084)915-144485 [place] [address] 12-09-2022 12:24-0400 SaO2% (BldA) [Mass fraction] 93 % Dr. Mady Dunn Work Phone: 7(511)315-614885 [place] [address] 12-09-2022 12:24-0400 Systolic blood pressure 125 mm[Hg] Dr. Mady Dunn Work Phone: 8(221)678-866785 [place] [address] 12-09-2022 09:52-0400 Body mass index (BMI) [Ratio] 30.5 kg/m2 Dr. Mady Dunn Work Phone: 6(893)248-614585 [place] [address] 12-09-2022 09:52-0400 Body temperature 97 [degF] Dr. Mady Dunn Work Phone: 6(934)745-076385 [place] [address] 12-09-2022 09:52-0400 Body weight 75.[address] Mady Dunn Work Phone: [facility] 12-06-2022 09:21-0400 Body mass index (BMI) [Ratio] 30.7 kg/m2 Dr. Mady Dunn Work Phone: [facility] 12-06-2022 09:21-0400 Body weight 76.[address] Mady Dunn Work Phone: [facility] 12-06-2022 09:21-0400 Diastolic blood pressure 74 mm[Hg] Dr. Mady Dunn Work Phone: [facility] 12-06-2022 09:21-0400 Heart rate 62 /min Dr. Mady Dunn Work Phone: [facility] 12-06-2022 09:21-0400 Respiratory rate 18 /min Dr. Mady Dunn Work Phone: [facility] 12-06-2022 09:21-0400 Systolic blood pressure 154 mm[Hg] Dr. Mady Dunn Work Phone: [facility] 10-30-2022 08:23-0400 Body temperature 96.6 [degF] Diana Meehan CENTRAL SUPPLY TECH.YARD CRANE OPERATOR Work Phone: [facility] 10-30-2022 08:23-0400 Body weight 76.57 kg Diaan Meehan CENTRAL SUPPLY TECH.YARD CRANE OPERATOR Work Phone: [facility] 10-30-2022 08:23-0400 Diastolic blood pressure 82 mm[Hg] Diana Meehan CENTRAL SUPPLY TECH.YARD CRANE OPERATOR Work Phone: [facility] 10-30-2022 08:23-0400 Heart rate 70 /min Diana Meeahn CENTRAL SUPPLY TECH.YARD CRANE OPERATOR Work Phone: [facility] 10-30-2022 08:23-0400 Respiratory rate 20 /min Diana Meehan CENTRAL SUPPLY TECH.YARD CRANE OPERATOR Work Phone: [facility] 10-30-2022 08:23-0400 SaO2% (BldA) [Mass fraction] 96 % Diana Meehan CENTRAL SUPPLY TECH.YARD CRANE OPERATOR Work Phone: [facility] 10-30-2022 08:23-0400 Systolic blood pressure 132 mm[Hg] Diana Meehan CENTRAL SUPPLY TECH.YARD CRANE OPERATOR Work Phone: [facility] 09-17-2022 14:21-0500 Body temperature 96.91 [degF] Mady Dunn MD Work Phone: [facility] 09-17-2022 14:21-0500 Body weight 77.11 kg Mady Dunn MD Work Phone: [facility] 09-17-2022 14:21-0500 Diastolic blood pressure 62 mm[Hg] Mady Dunn MD Work Phone: [facility] 09-17-2022 14:21-0500 Heart rate 80 /min Mady Dunn MD Work Phone: [facility] 09-17-2022 14:21-0500 Respiratory rate 18 /min Mady Dunn MD Work Phone: [facility] 09-17-2022 14:21-0500 SaO2% (BldA) [Mass fraction] 95 % Mady Dunn MD Work Phone: [facility] 09-17-2022 14:21-0500 Systolic blood pressure 132 mm[Hg] Mady Dunn MD Work Phone: [facility] 09-03-2022 14:27-0500 Diastolic blood pressure 71 mm[Hg] Maddison Renteria CENTRAL SUPPLY TECH.PRODUCE ASSISTANT Work Phone: [facility] 09-03-2022 14:27-0500 Heart rate 72 /min Maddison Renteria CENTRAL SUPPLY TECH.PRODUCE ASSISTANT Work Phone: [facility] 09-03-2022 14:27-0500 Systolic blood pressure 150 mm[Hg] Maddison Renteria CENTRAL SUPPLY TECH.PRODUCE ASSISTANT Work Phone: [facility] 09-03-2022 14:23-0500 Body weight 77.56 kg Maddison Renteria CENTRAL SUPPLY TECH.PRODUCE ASSISTANT Work Phone: [facility] 09-03-2022 14:23-0500 Respiratory rate 16 /min Maddison Renteria CENTRAL SUPPLY TECH.PRODUCE ASSISTANT Work Phone: [facility] 09-03-2022 14:23-0500 SaO2% (BldA) [Mass fraction] 96 % Maddison Renteria CENTRAL SUPPLY TECH.PRODUCE ASSISTANT Work Phone: [facility] 07-29-2022 09:38-0500 Body weight 77.56 kg Alina Delvalle MD Work Phone: [facility] 07-29-2022 09:38-0500 Diastolic blood pressure 68 mm[Hg] Alina Delvalle MD Work Phone: [facility] 07-29-2022 09:38-0500 Heart rate 70 /min Alina Delvalle MD Work Phone: [facility] 07-29-2022 09:38-0500 SaO2% (BldA) [Mass fraction] 96 % Alina Delvalle MD Work Phone: [facility] 07-29-2022 09:38-0500 Systolic blood pressure 124 mm[Hg] Alina Delvalle MD Work Phone: [facility] 06-16-2022 11:00-0500 Body temperature 96.21 [degF] Rosaura Jose Armando CENTRAL SUPPLY TECH.YARD CRANE OPERATOR Work Phone: [facility] 06-16-2022 11:00-0500 Body weight 78.47 kg Rosaura Jose Armando CENTRAL SUPPLY TECH.YARD CRANE OPERATOR Work Phone: [facility] 06-16-2022 11:00-0500 Diastolic blood pressure 50 mm[Hg] Rosaura Jose Armando CENTRAL SUPPLY TECH.YARD CRANE OPERATOR Work Phone: [facility] 06-16-2022 11:00-0500 Heart rate 82 /min Rosaura Jose Armando CENTRAL SUPPLY TECH.YARD CRANE OPERATOR Work Phone: [facility] 06-16-2022 11:00-0500 Respiratory rate 20 /min Rosaura Jose Armando CENTRAL SUPPLY TECH.YARD CRANE OPERATOR Work Phone: [facility] 06-16-2022 11:00-0500 SaO2% (BldA) [Mass fraction] 98 % Rosaura Suárez CENTRAL SUPPLY TECH.YARD CRANE OPERATOR Work Phone: [facility] 06-16-2022 11:00-0500 Systolic blood pressure 138 mm[Hg] Rosaura Suárez CENTRAL SUPPLY TECH.YARD CRANE OPERATOR Work Phone: [facility] 05-28-2022 10:35-0500 Body height 157.[address] Mady Dunn Work Phone: [facility] Work Phone: 05-28-2022 10:35-0500 Body mass index (BMI) [Ratio] 31.6 kg/m2 Dr. Mady Dunn Work Phone: [facility] Work Phone: 05-28-2022 10:35-0500 Body weight 78.[address] Mady Dunn Work Phone: [facility] Work Phone: 05-28-2022 10:35-0500 Diastolic blood pressure 60 mm[Hg] Dr. Mady Dunn Work Phone: [facility] Work Phone: 05-28-2022 10:35-0500 Heart rate 72 /min Dr. Mady Dunn Work Phone: [facility] Work Phone: 05-28-2022 10:35-0500 Respiratory rate 18 /min Dr. Mady Dunn Work Phone: [facility] Work Phone: 05-28-2022 10:35-0500 Systolic blood pressure 150 mm[Hg] Dr. Mady Dunn Work Phone: [facility] Work Phone: 04-28-2022 09:32-0400 Body height 157.5 cm Spencer Boone MD Work Phone: [facility] 04-28-2022 09:32-0400 Body weight 79.38 kg Spencer Boone MD Work Phone: [facility] 04-28-2022 09:32-0400 Diastolic blood pressure 80 mm[Hg] Spencer Boone MD Work Phone: [facility] 04-28-2022 09:32-0400 Systolic blood pressure 168 mm[Hg] Spencer Boone MD Work Phone: [facility] 04-26-2022 14:05-0400 Body weight 79.47 kg Alnia Delvalle MD Work Phone: [facility] 04-26-2022 14:05-0400 Diastolic blood pressure 75 mm[Hg] Alina Delvalle MD Work Phone: [facility] 04-26-2022 14:05-0400 Heart rate 69 /min Alina Delvalle MD Work Phone: [facility] 04-26-2022 14:05-0400 SaO2% (BldA) [Mass fraction] 95 % Alina Delvalle MD Work Phone: [facility] 04-26-2022 14:05-0400 Systolic blood pressure 183 mm[Hg] Alina Delvalle MD Work Phone: [facility] 03-09-2022 10:11-0400 Body height 157.5 cm Angélica Doan DO Work Phone: [facility] 03-09-2022 10:11-0400 Body weight 76.66 kg Angélica Doan DO Work Phone: [facility] 03-09-2022 10:11-0400 Diastolic blood pressure 84 mm[Hg] Angélica Doan DO Work Phone: [facility] 03-09-2022 10:11-0400 Heart rate 83 /min Angélica Doan DO Work Phone: [facility] 03-09-2022 10:11-0400 SaO2% (BldA) [Mass fraction] 97 % Angélica Doan DO Work Phone: [facility] 03-09-2022 10:11-0400 Systolic blood pressure 178 mm[Hg] Angélica Doan DO Work Phone: [facility] 02-01-2022 11:29-0400 Diastolic blood pressure 75 mm[Hg] Maddison Renteria [employer] ASSISTANT Work Phone: [facility] 02-01-2022 11:29-0400 Heart rate 66 /min Maddison Renteria [employer] SUPPLY TECH[employer]PRODUCE ASSISTANT Work Phone: [facility] 02-01-2022 11:29-0400 Systolic blood pressure 159 mm[Hg] Maddison Renteria [employer] SUPPLY TECH[employer]PRODUCE ASSISTANT Work Phone: [facility] 02-01-2022 11:12-0400 Body weight 77.11 kg Maddison Renteria [employer]PPLY TE[employer]PRODUCE ASSISTANT Work Phone: [facility] 02-01-2022 11:12-0400 Respiratory rate 16 /min Maddison Renteria [employer]PPLY TE[employer]PRODUCE ASSISTANT Work Phone: [facility] 02-01-2022 11:12-0400 SaO2% (BldA) [Mass fraction] 96 % Maddison Renteria [employer] SUPPLY TE[employer]PRODUCE ASSISTANT Work Phone: [facility] 12-28-2021 09:43-0400 Body height 157.5 cm Spencer Boone MD Work Phone: [facility] 12-28-2021 09:43-0400 Body weight 77.11 kg Spencer Boone MD Work Phone: [facility] 12-28-2021 09:43-0400 Diastolic blood pressure 80 mm[Hg] Spencer Boone MD Work Phone: [facility] 12-28-2021 09:43-0400 Systolic blood pressure 130 mm[Hg] Spencer Boone MD Work Phone: [facility] 12-08-2021 11:25-0400 Body height 157.5 cm Angélica Doan DO Work Phone: [facility] 12-08-2021 11:25-0400 Body weight 77.11 kg Angélica Doan DO Work Phone: [facility] 12-08-2021 11:25-0400 Diastolic blood pressure 70 mm[Hg] Angélica Doan DO Work Phone: [facility] 12-08-2021 11:25-0400 Heart rate 81 /min Angélica Doan DO Work Phone: [facility] 12-08-2021 11:25-0400 SaO2% (BldA) [Mass fraction] 98 % Angélica Doan DO Work Phone: [facility] 12-08-2021 11:25-0400 Systolic blood pressure 148 mm[Hg] Angélica Doan DO Work Phone: [facility] 11-24-2021 11:07-0400 Body height 157.5 cm Angélica Doan DO Work Phone: [facility] 11-24-2021 11:07-0400 Body weight 78.47 kg Angélica Doan DO Work Phone: [facility] 11-24-2021 11:07-0400 Diastolic blood pressure 52 mm[Hg] Angélica Doan DO Work Phone: [facility] 11-24-2021 11:07-0400 Heart rate 72 /min Angélica Doan DO Work Phone: [facility] 11-24-2021 11:07-0400 SaO2% (BldA) [Mass fraction] 98 % Angélica Doan DO Work Phone: [facility] 11-24-2021 11:07-0400 Systolic blood pressure 145 mm[Hg] Angélica Doan DO Work Phone: [facility] 11-11-2021 08:55-0400 Body weight 78.93 kg Chanelle Hagen APRN.YARD CRANE OPERATOR Work Phone: [facility] 04-27-2022 08:55-0400 Diastolic blood pressure 68 mm[Hg] Chanelle Blanchardhof CENTRAL SUPPLY TECH.YARD CRANE OPERATOR Work Phone: [facility] 11-11-2021 08:55-0400 Heart rate 77 /min Chanelle Blanchardhof CENTRAL SUPPLY TECH.YARD CRANE OPERATOR Work Phone: [facility] 11-11-2021 08:55-0400 Respiratory rate 16 /min Chanelle Blanchardhof CENTRAL SUPPLY TECH.YARD CRANE OPERATOR Work Phone: [facility] 11-11-2021 08:55-0400 SaO2% (BldA) [Mass fraction] 97 % Chanelle Blanchardhof CENTRAL SUPPLY TECH.YARD CRANE OPERATOR Work Phone: [facility] 11-11-2021 08:55-0400 Systolic blood pressure 150 mm[Hg] Chanelle Blanchardhof CENTRAL SUPPLY TECH.YARD CRANE OPERATOR Work Phone: [facility] 06-14-2017 13:20-0500 BMI (Body Mass Index) 29.32 kg/m2 Jason Jerez MD [facility] Work Phone: 06-14-2017 13:20-0500 Body Temperature 97.4 [degF] Jason Jerez MD [facility] Work Phone: 06-14-2017 13:20-0500 BP Diastolic 77 mm[Hg] Jason Jerez MD [facility] Work Phone: 06-14-2017 13:20-0500 BP Systolic 168 mm[Hg] Jason Jerez MD [facility] Work Phone: 06-14-2017 13:20-0500 Height 157.48 cm Jason Jerez MD [facility] Work Phone: 06-14-2017 13:20-0500 Pulse (Heart Rate) 84 /min Jason Jerez MD [facility] Work Phone: 06-14-2017 13:20-0500 Respiratory Rate 20 /min Jason Jerez MD [facility] Work Phone: 06-14-2017 13:20-0500 Weight 72.71 kg Jason Jerez MD [facility] Work Phone: Encounters Encounter Date Encounter Type Care Provider Facility Start: 01-11-2025 Evaluation and management of inpatient Dr. Viktoriya Manzo MD Work Phone: -Intensive Care Unit Start: 01-11-2025 Dr. Noble dover DO -Intensive Care Unit Work Phone: Start: 01-07-2025 End: 01-07-2025 Dr. Viktoriya Manzo MD Work Phone: -Emergency Department Work Phone: Start: 01-07-2025 End: 01-07-2025 Emergency department patient visit Dr. Viktoriya Manzo MD Work Phone: -Emergency Department Work Phone: Start: 01-07-2025 End: 01-07-2025 Office outpatient visit 25 minutes Viktoriya Manzo MD Work Phone: [facility] [place] Comment on above: Hospital discharge f ollow-up (Primary Dx); Achalasia of cardia; Esophagitis, [place] grade D; Diverticulosis of colon without hemorrhage; Anal fissure; Anemia, unspecified type; Magnesium deficiency Start: 01-07-2025 End: 01-07-2025 ambulatory VIKTORIYA MANZO Facility:[facility] Start: 01-07-2025 End: 01-07-2025 ambulatory TONA KIM Facility:[facility] Start: 01-07-2025 End: 01-07-2025 Patient encounter procedure Tona JACOBSON-C Work Phone: Orthopaedics Comment on above: Carpal tunnel syndro me of right wrist (Primary Dx); Cervical disc disorder with radiculopathy of cervical region Start: 01-01-2025 Non-patient / Non-visit Teodoro Reyes nd DO -[facility] Start: 01-01-2025 End: 01-01-2025 Admission to same day surgery center Teodoro Real DO -Endoscopy Work Phone: Start: 01-01-2025 End: 01-01-2025 Teodoro Friend DO -Endoscopy Work Phone: Start: 01-01-2025 End: 01-01-[address] 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 Viktoriya Manzo MD Work Phone: [facility] Work Phone: Start: 12-18-2024 End: 12-18-2024 ambulatory Viktoriya Manzo Facility:[facility] Start: 12-17-2024 End: 12-17-2024 Tobias Garcia DO -Emergency Departmen t Work Phone: Start: 12-17-2024 End: 12-17-2024 Emergency department patient visit Dr. Viktoriya Manzo MD Work Phone: -Emergency Department Work Phone: Start: 12-07-2024 End: 12-11-2024 ambulatory Tona iKm PA-C Work Phone: Orthopaedics Comment on above: Test Results Start: 12-05-2024 ambulatory Viktoriya Manzo Facility:[facility] Start: 12-05-2024 Non-patient / Non-visit Dr. Lisa bautista MD -[facility] Start: 12-05-2024 Dr. Lisa Zapien MD -[facility] Start: 12-05-2024 End: 12-05-[address] Viktoriya Manzo MD Work Phone: [facility] Work Phone: Start: 12-05-2024 End: 12-05-2024 Patient encounter procedure Tona Kim PA -Pulmonary Services/Neurology Work Phone: Start: 12-05-2024 End: 12-05-2024 Tonadra Kim PA -Pulmonary Services/Neurology Work Phone: Start: 12-05-2024 End: 12-05-2024 ambulatory Viktoriya Ganmaría Facility:[facility] Start: 11-30-2024 End: 11-30-2024 Patient encounter procedure Alina Delvalle MD Work Phone: Pulmonary Medicine Comment on above: Stage 3 severe COPD by GOLD classification (HCC) (Primary Dx); Chronic hypoxemic respiratory failure (HCC); Former cigarette smoker Start: 11-30-2024 End: 11-30-2024 ambulatory ALINA DELVALLE Facility:[facility] Start: 11-28-2024 End: 11-28-2024 ambulatory Viktoriya Manzo MD Work Phone: [facility] [place] Comment on above: Abdominal Pain Start: 11-28-2024 End: 11-28-2024 Dr. Jay De Luna DO -Emergency Department Work Phone: Start: 11-28-2024 End: 11-28-2024 Emergency department patient visit Rosaura Suárez AUDIO SPECIALIST-C Work Phone: -Emergency Department Work Phone: Start: 11-19-2024 End: 11-19-2024 ambulatory Tona Kim PA-C Work Phone: Orthopaedics Comment on above: EMG Test Refill Request Start: 11-16-2024 End: 11-16-2024 Telephone encounter Tona Kim PA-C Work Phone: Orthopaedics Comment on above: Patient Update Start: 11-12-2024 End: 11-12-2024 ambulatory TONA TOVITZ Facility:[facility] Start: 11-02-2024 Non-patient / Non-visit Dr. Herrera staton MD -[facility] Start: 11-02-2024 End: 11-02-2024 ambulatory Roasura Suárez AUDIO SPECIALIST-C Work Phone: [facility] Work Phone: Start: 11-02-2024 End: 11-02-[address] Juvenal Thompson MD -Cardiovascular Services Work Phone: Start: 11-02-2024 End: 11-02-2024 Dr. Herrera Goodrich MD -[facility] Start: 11-02-2024 End: 11-02-2024 ambulatory [facility] Facility:[facility] Start: 10-17-2024 End: 10-17-[address] Juvenal Thompson MD -[place] [facility] Work Phone: Start: 10-17-2024 End: 10-17-2024 Dr. Juvenal Thompson MD -[facility] Work Phone: Start: 10-17-2024 End: 10-17-2024 ambulatory [facility] Start: 10-15-2024 End: 10-15-2024 Telephone encounter Alina Delvalle MD Work Phone: Pulmonary Medicine Start: 10-13-2024 End: 12-13-2024 Follow-up encounter Viktoriya Manzo MD Work Phone: [facility] [place] Start: 10-10-2024 End: 12-10-2024 Follow-up encounter Diana Solares APRN.CNP Work Phone: [facility] [place] Start: 10-09-2024 End: 10-10-2024 Refill Viktoriya Manzo MD Work Phone: [facility] [place] Comment on above: Refill Request Start: 10-05-2024 End: 10-05-2024 Subsequent hospital visit by physician [facility] Work Phone: Radiology Comment on above: Chronic right should er pain [M25.511, G89.29] Start: 10-05-2024 End: 10-05-2024 ambulatory [facility] Facility:[facility] Start: 10-05-2024 End: 10-05-2024 Office outpatient visit 25 minutes Viktoriya Manzo MD Work Phone: [facility] [place] Comment on above: Chronic right should er pain (Primary Dx); Chronic bilateral low back pain, unspecified whether sciatica present; Chronic obstructive pulmonary disease, unspecified COPD type (HCC); Primary hypertension; Restless legs syndrome (RLS); Hypokalemia; Achalasia of cardia; Stage 3b chronic kidney disease (HCC); Mixed hyperlipidemia; Chronic hypoxemic respiratory failure (HCC); Acute on chronic heart failure with preserved ejection fraction (HCC); Type 2 diabetes mellitus with chronic kidney disease, without long-term current use of insulin, unspecified CKD stage (HCC); Moderate recurrent major depression (HCC) Start: 09-27-2024 [facility] Facility:[facility] Start: 09-27-2024 Non-patient / Non-visit Teodoro Reyes nd DO -[facility] Start: 09-27-2024 Teodoro Real DO -[facility] Start: 09-27-2024 End: 09-27-2024 Admission to same day surgery center Teodoro Real DO -Endoscopy Work Phone: Start: 09-27-2024 End: 09-27-2024 Teodoro Real DO -Endoscopy Work Phone: Start: 09-27-2024 End: 09-27-2024 ambulatory Rosaura GUILLEN Work Phone: [facility] Work Phone: Start: 2024 End: 11-20-2024 Follow-up encounter Viktoriya Manzo MD Work Phone: Geriatrics Start: 09-19-2024 End: 09-19-2024 ambulatory [facility] Facility:[facility] Start: 09-18-2024 End: 09-21-2024 ambulatory Viktoriya Manzo MD Work Phone: Internal [facility] [place] Start: 09-16-2024 End: 09-17-2024 Refill Alina Delvalle MD Work Phone: Pulmonary Medicine Comment on above: Refill Request Start: 08-18-2024 End: 08-21-2024 Refill Alina Delvalle MD Work Phone: Pulmonary Medicine Comment on above: Refill Request Start: 08-03-2024 End: 08-03-2024 Patient encounter procedure Sima Wheeler [place] -[facility] Work Phone: Start: 08-03-2024 End: 08-03-2024 ambulatory Rosaura Suárez NP [facility] Start: 07-12-2024 End: 07-31-2024 ambulatory Viktoriya Manzo MD Work Phone: [facility] [place] Comment on above: Blood Work Results Start: 07-06-2024 End: 07-06-2024 ambulatory VIKTORIYA LOYOLA Facility:[facility] Start: 07-06-2024 End: 07-06-2024 Office outpatient visit 25 minutes Viktoriya Manzo MD Work Phone: [facility] [place] Comment on above: Essential hypertensi on (Primary Dx); Mixed hyperlipidemia; Chronic obstructive pulmonary disease, unspecified COPD type (HCC); Hypokalemia; Auditory hallucinations; Hypomagnesemia; Renal mass Start: 07-06-2024 End: 07-06-2024 ambulatory [facility] Facility:[facility] Start: 07-05-2024 End: 07-06-2024 ambulatory Alison Hi RN Title Agent Management Comment on above: CDM (Chronic Disease Management Routine Call/) Start: 06-22-2024 End: 06-25-2024 ambulatory Hayes Sharp RN Work Phone: Title Agent Management Comment on above: Community Monitoring Outreach Start: 06-18-2024 End: 06-18-2024 Telephone encounter Mady Dunn MD Work Phone: [facility] [place] Comment on above: Hospital F/U; Reques t for possible change of provider Start: 06-15-2024 End: 06-15-2024 Telephone encounter Spencer Boone MD Work Phone: [facility] Comment on above: Appointment Start: 06-08-2024 Non-patient / Non-visit Dr. Norma Esetves MD -[place] [facility] Work Phone: Start: 06-07-2024 Non-patient / Non-visit Dr. Norma Esteves MD -[place] [facility] Work Phone: Start: 06-06-2024 ambulatory Jorje Woods ty:[facility] Start: 06-06-2024 End: 06-08-2024 Evaluation and management of inpatient Dr. Juan Esteves MD -Progressive Care Unit Work Phone: Start: 06-06-2024 End: 06-06-2024 ambulatory [facility] Facility:[facility] Start: 06-06-2024 End: 06-06-2024 Telephone encounter Mady Dunn MD Work Phone: [facility] [place] Comment on above: Critical Results Start: 06-05-2024 End: 06-06-2024 Telephone encounter Mady Dunn MD Work Phone: [facility] [place] Comment on above: Hallucinations Start: 06-04-2024 End: 06-04-2024 Refill Mady Dunn MD Work Phone: [facility] [place] Comment on above: Refill Request Start: 05-22-2024 End: 05-23-2024 ambulatory Alison Hi RN Title Agent Management Comment on above: CDM (Chronic Disease Management Routine Call/) Start: 05-09-2024 End: 05-10-2024 ambulatory Alison Hi RN Title Agent Management Comment on above: CDM (Chronic Disease Management Routine Call/) Start: 05-01-2024 End: 05-01-2024 ambulatory Rosaura Jose Armando AUDIO SPECIALIST [facility] Start: 04-25-2024 End: 04-25-2024 ambulatory [facility] Work Phone[facility] Comment on above: Spirometry Start: 04-25-2024 End: 04-25-2024 Patient encounter procedure [facility] Work Phone: [facility] Comment on above: Stage 3 severe COPD by GOLD classification (HCC) (Primary Dx); Chronic hypoxemic respiratory failure (HCC); Former smoker; Post-COVID chronic dyspnea; Lung nodule Start: 04-23-2024 End: 04-23-2024 Refill Mady Dunn MD Work Phone: [facility] [place] Comment on above: Refill Request Start: 04-19-2024 End: 04-19-2024 ambulatory Rosaura Suárez AUDIO SPECIALIST Facility:[facility] Start: 04-08-2024 End: 04-08-2024 ambulatory Alison Hi industrial production managerTitle Agent Management Comment on above: CDM (Chronic Disease Management Routine Call/) Start: 04-06-2024 End: 04-06-2024 ambulatory ROSAURA SUÁREZ Facility:[facility] Start: 04-06-2024 End: 04-06-2024 Patient encounter procedure Rosaura Suárez CENTRAL SUPPLY TECH.YARD CRANE OPERATOR Work Phone: [facility] [place] Comment on above: Other insomnia (Prim richard Dx); HTN (hypertension), benign; Chronic obstructive pulmonary disease, unspecified COPD type (HCC); Chronic hypoxic respiratory failure, on home oxygen therapy (HCC); Type 2 diabetes mellitus with chronic kidney disease, without long-term current use of insulin, unspecified CKD stage ([facility]); Chronic bilateral low back pain, unspecified whether sciatica present; Encounter for immunization Start: 03-26-2024 End: 03-27-2024 ambulatory Alison Hi industrial production managerTitle Agent Management Comment on above: CDM (Chronic Disease Management Routine Call/) Start: 03-22-2024 End: 03-22-2024 ambulatory Rosaura Suárez AUDIO SPECIALIST [facility] Start: 03-08-2024 End: 03-09-2024 Emergency department patient visit Rosaura Suárez AUDIO SPECIALIST Facility:[facility] Start: 03-05-2024 End: 03-06-2024 ambulatory Alison Hi industrial production managerTitle Agent Management Comment on above: Community Monitoring Outreach Start: 02-29-2024 ambulatory Alison Bhat Staff ord industrial production managerTitle Agent Management Comment on above: Community Monitoring Outreach Start: 02-28-2024 Refill Rosaura Suárez APRN.YARD CRANE OPERATOR Work Phone: [facility] Comment on above: Refill Request Start: 02-14-2024 End: 02-14-2024 ambulatory Rosaura Suárez AUDIO SPECIALIST [facility] Start: 02-13-2024 Telephone encounter Rosaura Hummel er AMY.YARD CRANE OPERATOR Work Phone: [facility] [place] Comment on above: Results Start: 02-08-2024 End: 02-08-2024 Subsequent hospital visit by physician [facility] Work Phone: Radiology Comment on above: Acute left flank henok n [R10.9] Start: 02-08-2024 End: 02-08-2024 ambulatory ROSAURA VALENZUELAR Facility:[facility] Start: 02-08-2024 End: 02-08-2024 Patient encounter procedure Rosaura Suárez APRN.YARD CRANE OPERATOR Work Phone: [facility] [place] Comment on above: Acute left flank henok n (Primary Dx); History of kidney stones; Other insomnia; HTN (hypertension), benign; Stage 3b chronic kidney disease (HCC); Chronic hypoxic respiratory failure, on home oxygen therapy (HCC); Chronic obstructive pulmonary disease, unspecified COPD type (HCC); Type 2 diabetes mellitus with hyperglycemia, without long-term current use of insulin (HCC); Hypomagnesemia; Vitamin D deficiency; Iron deficiency; Encounter for therapeutic drug monitoring Start: 02-02-2024 ambulatory Alison Bhat Staff ord industrial production managerTitle Agent Management Comment on above: Community Monitoring Outreach Start: 01-20-2024 Home visit Rosaura Suárez APRN.YARD CRANE OPERATOR Work Phone: [facility] [place] Comment on above: Chronic obstructive pulmonary disease, unspecified COPD type (HCC) (Primary Dx) Start: 01-10-2024 Refill Mady ramos MD Work Phone: [facility] [place] Comment on above: Refill Request Start: 12-30-2023 Telephone encounter Mady jeffers MD Work Phone: [facility] [place] Comment on above: Medication Problem Start: 12-28-2023 End: 12-28-2023 Patient encounter procedure Rosaura Suárez APRN.YARD CRANE OPERATOR Work Phone: [facility] [place] Comment on above: HTN (hypertension), benign (Primary Dx); Moderate recurrent major depression (HCC); Anxiety; Chronic bilateral low back pain, unspecified whether sciatica present; Other insomnia Start: 12-23-2023 ambulatory Alison callahan industrial production managerTitle Agent Management Comment on above: Community Monitoring Outreach Start: 12-20-2023 End: 12-20-2023 ambulatory [facility] Work Phone: [facility] Comment on above: Spirometry Start: 12-20-2023 End: 12-20-2023 Patient encounter procedure Ana Hernandez PA-C Work Phone: Pulmonary Medicine Comment on above: Stage 3 severe COPD by GOLD classification (HCC) (Primary Dx); Chronic hypoxemic respiratory failure (HCC); Former smoker; Post-COVID chronic dyspnea; Lung nodule Start: 12-19-2023 Telephone encounter Mady jeffers MD Work Phone: [facility] [place] Comment on above: Orders Start: 12-05-2023 Refill Mady ramos MD Work Phone: [facility] [place] Comment on above: Refill Request Patient Update Start: 11-30-2023 End: 11-30-2023 Patient encounter procedure Rosaura Suárez APRN.YARD CRANE OPERATOR Work Phone: [facility] [place] Comment on above: HTN (hypertension), benign (Primary Dx); Anxiety; Moderate recurrent major depression (HCC); Chronic bilateral low back pain, unspecified whether sciatica present; Lymphedema; Iron deficiency; Hypocalcemia; Stage 3b chronic kidney disease (HCC) Start: 11-29-2023 Telephone encounter Rosaura ivan APRN.CNP Work Phone: [facility] [place] Comment on above: Results (labs) Start: 11-28-2023 Telephone encounter Mady jeffers MD Work Phone: [facility] [place] Comment on above: Faxed to [facility] Start: 11-24-2023 Telephone encounter Mady jeffers MD Work Phone: [facility] [place] Comment on above: Patient Update Start: 11-21-2023 Telephone encounter Mady jeffers MD Work Phone: [facility] [place] Comment on above: Patient Update Start: 11-18-2023 Telephone encounter Mady jeffers MD Work Phone: [facility] [place] Comment on above: [facility] update on Lym phedema Therapy Start: 11-17-2023 Telephone encounter Rosaura Hummel er CENTRAL SUPPLY TECH.YARD CRANE OPERATOR Work Phone: [facility] [place] Comment on above: home health issue Start: 11-16-2023 End: 11-16-2023 Patient encounter procedure Rosaura Jose Armando CENTRAL SUPPLY TECH.YARD CRANE OPERATOR Work Phone: [facility] [place] Comment on above: Diverticulitis (Prim richard Dx); Chronic bilateral low back pain, unspecified whether sciatica present; Lymphedema; Other insomnia; Acute on chronic heart failure with preserved ejection fraction (HCC); Chronic hypoxic respiratory failure, on home oxygen therapy ([facility]); Chronic obstructive pulmonary disease, unspecified COPD type ([facility]); Encounter for therapeutic drug monitoring; Iron deficiency; Type 2 diabetes mellitus with hyperglycemia, without long-term current use of insulin ([facility]) Start: 11-14-2023 End: 11-15-[address] Mady Dunn Work Phone: [facility] Work Phone: Start: 11-14-2023 End: 11-15-2023 Dr. Mady Dunn Work Phone: [facility]-Home Health Lab Start: 11-14-2023 End: 04-10-2024 Telephone encounter Mady Dunn MD Work Phone: [facility] [place] Comment on above: Home Health Call; Isabella b Orders Pain, Back Start: 11-10-2023 ambulatory Alison callahan industrial production managerTitle Agent Management Comment on above: Community Monitoring Outreach Start: 11-08-2023 Telephone encounter Rosaura Hummel er CENTRAL SUPPLY TECH.YARD CRANE OPERATOR Work Phone: [facility] [place] Comment on above: update from home [facility] Start: 11-07-2023 Telephone encounter Rosaura Hummel marzena CENTRAL SUPPLY TECH.YARD CRANE OPERATOR Work Phone: [facility] [place] Comment on above: Orders Refill Request Start: 11-06-2023 Dr. Mady reyes Work Phone: [facility] Work Phone: Start: 11-05-2023 Dr. Mady reyes Work Phone: [facility] Work Phone: Start: 11-04-2023 Dr. Mady reyes Work Phone: [facility] Work Phone: Start: 11-03-2023 End: 11-06-2023 Evaluation and management of inpatient Dr. Mady Dunn Work Phone: [facility] Work Phone: Start: 11-03-2023 End: 11-06-2023 Dr. Mady Dunn Work Phone: [facility]-Progressive Care Unit Work Phone: Start: 11-02-2023 Telephone encounter Mady jeffers MD Work Phone: [facility] [place] Comment on above: Opened In Error Start: 10-31-2023 Telephone encounter Maddison choi CENTRAL SUPPLY TECH.PRODUCE ASSISTANT Work Phone: [facility] [place] Comment on above: Lab Orders (/); Sarita ent Update; Medication request Start: 10-27-2023 Telephone encounter Alina Delvalle MD Work Phone: Pulmonary Medicine Comment on above: Automatic Dispenser Mechanic - O ther Start: 10-24-2023 Telephone encounter Alina Delvalle MD Work Phone: Pulmonary Medicine Comment on above: Results (Oximetry) Patient Update Start: 10-21-2023 Telephone encounter Mady jeffers MD Work Phone: [facility] [place] Comment on above: [facility] [facility] Start: 10-19-2023 Telephone encounter Mady jeffers MD Work Phone: [facility] [place] Comment on above: OT plan of care Start: 10-19-2023 End: 10-19-2023 Patient encounter procedure Rosaura Suárez AMY.YARD CRANE OPERATOR Work Phone: [facility] [place] Comment on above: Chronic hypoxic resp iratory failure, on home oxygen therapy (HCC) (Primary Dx); COPD with exacerbation (HCC); Acute on chronic heart failure with preserved ejection fraction (HCC); Chronic bilateral low back pain, unspecified whether sciatica present; Other insomnia; Type 2 diabetes mellitus with hyperglycemia, without long-term current use of insulin (HCC); Stage 3b chronic kidney disease (HCC); Primary hypertension; Iron deficiency; Encounter for therapeutic drug monitoring Start: 10-17-2023 Orders Only Alina Delvalle MD Work Phone: Pulmonary Medicine Comment on above: Chronic obstructive pulmonary disease, unspecified COPD type (HCC) (Primary Dx) Medication Problem ( Brovana nebulizer) [facility] POC w/questio ns Start: 10-06-2023 ambulatory Alison Bhat Staff ord industrial production managerTitle Agent Management Comment on above: Community Monitoring Outreach Start: 10-05-2023 End: 10-15-2023 Evaluation and management of inpatient Dr. Mady Dunn Work Phone: [facility] Work Phone: Start: 10-05-2023 End: 10-15-2023 Dr. Mady Dunn Work Phone: [facility]-Transitional Care Unit Start: 10-05-2023 Dr. Mady reyes Work Phone: [facility] Work Phone: Start: 10-04-2023 Dr. Mady reyes Work Phone: [facility] Work Phone: Start: 10-03-2023 Dr. Mady reyes Work Phone: [facility] Work Phone: Start: 10-03-2023 End: 10-05-2023 Evaluation and management of inpatient Dr. Mady Dunn Work Phone: [facility] Work Phone: Start: 10-02-2023 End: 10-05-2023 Dr. Mady Dunn Work Phone: [facility]-Emergency Department Work Phone: Start: 09-27-2023 End: 09-27-[address] Mady Dunn Work Phone: [facility] Work Phone: Start: 09-27-2023 End: 09-27-2023 Dr. Mady Dunn Work Phone: [facility] Work Phone: Start: 09-19-2023 Telephone encounter Spencer Boone MD Work Phone: [facility] Comment on above: Patient Update Start: 09-16-2023 End: 09-16-[address] Mady Dunn Work Phone: [facility] Work Phone: Start: 09-16-2023 End: 09-16-2023 Dr. Mady Dunn Work Phone: [facility]-Endoscopy Work Phone: Start: 09-15-2023 Dr. 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 Mady Dunn Work Phone: [facility] Work Phone: Start: 09-14-2023 End: 09-14-2023 Dr. Mady Dunn Work Phone: [facility]-Medical Out Work Phone: Start: 09-12-2023 End: 10-02-2023 Evaluation and management of inpatient Dr. Mady Dunn Work Phone: [facility] Work Phone: Start: 09-12-2023 End: 10-02-2023 Dr. Mady Dunn Work Phone: [facility]-Transitional Care Unit Start: 09-12-2023 Dr. Mady reyes Work Phone: [facility] [facility] Work Phone: Start: 09-11-2023 Dr. Mady reyes Work Phone: [facility] [facility] Work Phone: Start: 09-10-2023 Dr. Mady reyes Work Phone: [facility] [facility] Work Phone: Start: 09-09-2023 Dr. Mady reyes Work Phone: [facility] [facility] Work Phone: Start: 09-08-2023 Dr. Mady reyes Work Phone: [facility] [facility] Work Phone: Start: 09-07-2023 Dr. Mady reyes Work Phone: [facility] [facility] Work Phone: Start: 09-06-2023 Dr. Mady reyes Work Phone: [facility] Work Phone: Start: 09-05-2023 Telephone encounter Rosaura ivan APRN.YARD CRANE OPERATOR Work Phone: [facility] [place] Comment on above: Results; Patient Upd ate Start: 09-05-2023 Dr. Mady reyes Work Phone: [facility] Work Phone: Start: 09-04-2023 Dr. Mady reyes Work Phone: [facility] Work Phone: Start: 09-04-2023 Dr. Mady reyes Work Phone: [facility] Start: 09-03-2023 End: 09-12-2023 Dr. Mady Dunn Work Phone: [facility] Work Phone: Start: 09-03-2023 End: 09-12-2023 Evaluation and management of inpatient Dr. 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 Rosalia Dunn Work Phone: [facility] Start: 08-29-2023 End: 08-29-[address] Mady Dunn Work Phone: [facility] Work Phone: Start: 08-29-2023 End: 08-29-[address] [facility] Start: 08-29-2023 End: 08-29-2023 Dr. Mady Dunn Work Phone: [facility] Start: 08-20-2023 ambulatory Rosaura Suárez APRN.CNP Work Phone: [facility] [place] Comment on above: Aug 23 Appt Start: 08-20-2023 Non-patient / Non-visit Dr. Rosalia Dunn Work Phone: [facility] Work Phone: Start: 08-20-2023 Dr. Mady reyes Work Phone: [facility] Work Phone: Start: 08-19-2023 Non-patient / Non-visit Dr. Rosalia Dunn Work Phone: [facility] Work Phone: Start: 08-19-2023 Dr. Mady reyes Work Phone: [facility] Work Phone: Start: 08-18-2023 End: 08-20-2023 Evaluation and management of inpatient Dr. Mady Dunn Work Phone: [facility]-Progressive Care Unit Work Phone: Start: 08-18-2023 Non-patient / Non-visit Dr. Rosalia Dunn Work Phone: [facility] Work Phone: Start: 08-18-2023 End: 08-20-2023 Dr. Mady Dunn Work Phone: [facility]-Progressive Care Unit Work Phone: Start: 08-18-2023 Telephone encounter Ana Hernandez PA-C Work Phone: Endocrinology Comment on above: Patient Update Start: 08-17-2023 End: 08-17-[address] Mady Dunn Work Phone: [facility] Work Phone: Start: 08-17-2023 End: 08-17-[address] Mady Dunn Work Phone: [facility] Work Phone: Start: 08-17-2023 End: 08-17-2023 Dr. Mady Dunn Work Phone: [facility] Work Phone: Start: 08-10-2023 End: 08-10-[address] Mady Dunn Work Phone: [facility] Work Phone: Start: 08-10-2023 End: 08-10-[address] Mady Dunn Work Phone: [facility] Work Phone: Start: 08-10-2023 End: 08-10-2023 Dr. Mady Dunn Work Phone: [facility] Work Phone: Start: 07-27-2023 End: 07-27-2023 Emergency department patient visit Dr. Mady Dunn Work Phone: [facility]-Emergency Department Work Phone: Start: 07-27-2023 End: 07-27-2023 Dr. Mady Dunn Work Phone: [facility]-Emergency Department Work Phone: Start: 07-14-2023 End: 07-14-2023 Subsequent hospital visit by physician [facility] Work Phone: Radiology Comment on above: Simple chronic bronc hitis (HCC) [J41.0] Start: 07-07-2023 ambulatory Mady ramos MD Work Phone: [facility] [place] Comment on above: Shortness of Breath Start: 07-01-2023 End: 07-01-2023 Subsequent hospital visit by physician Xr [facility] Work Phone: Radiology Comment on above: COPD with exacerbati on (HCC) [J44.1] Start: 07-01-2023 End: 07-01-2023 Patient encounter procedure Rosaura Suárez APRN.YARD CRANE OPERATOR Work Phone: [facility] [place] Comment on above: COPD with exacerbati on (HCC) (Primary Dx); Hypoxia Start: 06-28-2023 ambulatory Alison callahan industrial production managerTitle Agent Management Comment on above: Community Monitoring Outreach Start: 06-27-[address] Mady Dunn Work Phone: [facility]-Patient Link Work Phone: Start: 06-27-2023 Dr. Mady reyes Work Phone: [facility] Work Phone: Start: 06-25-2023 Non-patient / Non-visit Dr. Rosalia Dunn Work Phone: [facility] Work Phone: Start: 06-25-2023 Dr. Mady reyes Work Phone: [facility] Work Phone: Start: 06-24-2023 Non-patient / Non-visit Dr. Rosalia Dunn Work Phone: [facility] Work Phone: Start: 06-24-2023 Dr. Mady reyes Work Phone: [facility] Work Phone: Start: 06-23-2023 Non-patient / Non-visit Dr. Rosalia Dunn Work Phone: [facility] Work Phone: Start: 06-23-2023 Dr. Mady reyes Work Phone: [facility] Work Phone: Start: 06-22-2023 Non-patient / Non-visit Dr. Rosalia Dunn Work Phone: [facility] Work Phone: Start: 06-22-2023 Dr. Mady reyes Work Phone: [facility] Work Phone: Start: 06-21-2023 End: 06-21-2023 Non-patient / Non-visit Dr. Mady Dunn Work Phone: [facility] Work Phone: Start: 06-21-2023 End: 06-21-2023 Dr. Mady Dunn Work Phone: [facility] Work Phone: Start: 06-20-2023 End: 06-25-2023 Evaluation and management of inpatient Dr. Mady Dunn Work Phone: [facility]-Progressive Care Unit Work Phone: Start: 06-20-2023 End: 06-25-2023 Dr. Mady Dunn Work Phone: [facility]Progressive Care [facility] Work Phone: Start: 06-20-2023 Non-patient / Non-visit Dr. Rosalia Dunn Work Phone: [facility] Work Phone: Start: 06-20-2023 Dr. Mady reyes Work Phone: [facility] Work Phone: Start: 06-19-2023 Evaluation and management of inpatient [facility] Work Phone: Start: 06-19-2023 Non-patient / Non-visit Dr. Rosalia Dunn Work Phone: [facility] Work Phone: Start: 06-19-[address] [facility] Work Phone: Start: 06-19-2023 Dr. Mady reyes Work Phone: [facility] Work Phone: Start: 05-23-2023 End: 05-23-2023 Patient encounter procedure Rosaura Suárez APRN.CNP Work Phone: [facility] [place] Comment on above: Primary hypertension (Primary Dx); Stasis edema of both lower extremities; Osteopenia of lumbar spine; Lumbar pain Start: 05-17-2023 ambulatory Alison callahan industrial production managerTitle Agent Management Comment on above: Community Monitoring Outreach Start: 05-14-2023 End: 05-14-2023 ambulatory [facility] Work Phone: Start: 05-14-2023 End: 05-14-2023 Patient encounter procedure [facility]-MRI - [facility] Work Phone: Start: 05-09-2023 End: 05-09-2023 Subsequent hospital visit by physician [facility] Work Phone: Radiology Comment on above: Osteopenia of lumbar spine [M85.88] Start: 05-06-2023 Telephone encounter Rosaura Hummel er CENTRAL SUPPLY TECH.YARD CRANE OPERATOR Work Phone: [facility] [place] Comment on above: Automatic Dispenser Mechanic - O ther Start: 05-06-2023 End: 05-06-2023 Patient encounter procedure Rosaura Suárez CENTRAL SUPPLY TECH.YARD CRANE OPERATOR Work Phone: [facility] [place] Comment on above: Chronic bilateral th oracic back pain (Primary Dx); Primary hypertension; Osteopenia of lumbar spine; Encounter for screening for osteoporosis; Asymptomatic postmenopausal status Start: 05-02-2023 Telephone encounter Rosaura Hummel er CENTRAL SUPPLY TECH.YARD CRANE OPERATOR Work Phone: [facility] [place] Comment on above: Patient Update Start: 04-27-2023 Telephone encounter Rosaura Hummel er CENTRAL SUPPLY TECH.YARD CRANE OPERATOR Work Phone: [facility] [place] Comment on above: Results Start: 04-25-2023 End: 04-25-2023 Subsequent hospital visit by physician [facility] [place] Work Phone: Radiology Comment on above: SOB (shortness of br eath) [R06.02] Start: 04-19-2023 ambulatory Alison Bhat Staff ord industrial production managerTitle Agent Management Comment on above: Community Monitoring Outreach Start: 04-18-2023 Telephone encounter Rosaura Hummel er CENTRAL SUPPLY TECH.YARD CRANE OPERATOR Work Phone: [facility] [place] Comment on above: Patient Update; ER F /U; Back Pain Start: 04-16-2023 End: 04-16-2023 Emergency department patient visit [facility]Emergency Department Work Phone: Start: 04-08-2023 End: 04-08-2023 ambulatory Artie Levin PT Work Phone: [facility] Comment on above: Chronic bilateral th oracic back pain (Primary Dx); Lumbar pain Start: 04-04-2023 End: 04-04-2023 ambulatory Artie Ollie PT Work Phone: [facility] Comment on above: Chronic bilateral th oracic back pain (Primary Dx); Lumbar pain Start: 04-01-2023 Kenya Brennan PA-C Work Phone: Pulmonary Medicine Start: 03-23-2023 End: 03-23-2023 Subsequent hospital visit by physician [facility] Work Phone: Radiology Comment on above: Chronic bilateral th oracic back pain [M54.6, G89.29] Start: 03-23-2023 End: 03-23-2023 Patient encounter procedure Rosaura Suárez APRN.YARD CRANE OPERATOR Work Phone: [facility] [place] Comment on above: Chronic bilateral th oracic back pain (Primary Dx); Lumbar pain; Stasis edema of both lower extremities; Lymphedema of both lower extremities; Encounter for therapeutic drug monitoring; Need for influenza vaccination; Primary hypertension; Stage 3a chronic kidney disease (HCC) Start: 03-09-2023 ambulatory Alison callahan industrial production managerTitle Agent Management Comment on above: Community Monitoring Outreach Start: 03-03-2023 End: 03-03-[address] Mady Dunn Work Phone: [facility] Work Phone: Start: 03-03-2023 End: 03-03-[address] Mady Dunn Work Phone: [facility]-Radiology, [facility] Work Phone: Start: 02-18-2023 Refill Alina Delvalle MD Work Phone: Pulmonary Medicine Start: 02-03-2023 End: 02-03-[address] Mady Dunn Work Phone: [facility]-Cat Scan, [facility] Work Phone: Start: 01-10-2023 Telephone encounter Mady jeffers MD Work Phone: [facility] [place] Comment on above: Referral Request Start: 01-07-2023 Telephone encounter Rosaura ivan APRN.YARD CRANE OPERATOR Work Phone: [facility] [place] Comment on above: Results Start: 12-30-2022 End: 12-30-2022 Emergency department patient [facility]ady [facility] Start: 12-30-2022 Telephone encounter Mady jeffers MD Work Phone: [facility] [place] Comment on above: increased diverticul itis pain Start: 12-28-2022 ambulatory Alison Bhat Staff ord industrial production managerTitle Agent Management Comment on above: Community Monitoring Outreach Start: 12-22-2022 Refill Mady ramos MD Work Phone: [facility] [place] Comment on above: Refill Request Start: 12-17-2022 ambulatory Mady ramos MD Work Phone: [facility] [place] Comment on above: Swelling Start: 12-15-2022 Telephone encounter Spencer Boone MD Work Phone: [place] [facility] Comment on above: Future Appointment Start: 12-09-2022 End: 12-09-2022 Emergency department patient [facility] Dr. [facility]ady Dunn [facility] Start: 12-06-2022 End: 12-06-[address] Mady Dunn Work Phone: [facility] Start: 11-18-2022 ambulatory Alison Bhat Staff ord industrial production managerTitle Agent Management Comment on above: Community Monitoring Outreach Start: 10-30-2022 End: 10-30-2022 Patient encounter procedure Diana Meehan APRN.YARD CRANE OPERATOR Work Phone: [place] [facility] Comment on above: Acute cough (Primary Dx); COPD with exacerbation (HCC) Start: 10-30-2022 End: 10-30-2022 Subsequent hospital visit by physician Xr [facility] Work Phone: Radiology Comment on above: Acute cough [R05.1] Start: 10-29-2022 ambulatory Alison Bhat Staff ord industrial production managerTitle Agent Management Comment on above: Community Monitoring Outreach Start: 10-19-2022 ambulatory Alison Bhat Staff ord industrial production managerTitle Agent Management Comment on above: Community Monitoring Outreach Start: 10-17-2022 Refill Ana Brennan PA-C Work Phone: Pulmonary Medicine Comment on above: Refill Request Start: 10-01-2022 Telephone encounter Mady jeffers MD Work Phone: [facility] [place] Comment on above: Patient Update; Sarita ent Question Start: 09-27-2022 Refill Mady ramos MD Work Phone: [facility] [place] Comment on above: Refill Request Start: 09-24-2022 Telephone encounter Mady jeffers MD Work Phone: [facility] [place] Comment on above: Patient udpate Start: 09-17-2022 End: 09-17-2022 Office outpatient visit 40 minutes Mady Dunn MD Work Phone: [facility] [place] Comment on above: Chronic obstructive pulmonary disease, unspecified COPD type (HCC) (Primary Dx); Eustachian tube dysfunction, bilateral; Stage 1 mild COPD by GOLD classification ([facility]); COPD with exacerbation (HCC); Vitamin D deficiency; Stage 3a chronic kidney disease (HCC); Essential hypertension; Lymphedema of both lower extremities; Stasis edema of both lower extremities; Encounter for long-term current use of medication Start: 09-05-2022 Refill Mady ramos MD Work Phone: [facility] [place] Comment on above: Refill Request Start: 09-03-2022 End: 09-03-2022 Office outpatient visit 25 minutes Maddison Renteria APRN.PRODUCE ASSISTANT Work Phone: [facility] [place] Comment on above: COPD with exacerbati on (HCC) (Primary Dx); Stage 1 mild COPD by GOLD classification ([facility]); Insomnia, unspecified type Start: 09-03-2022 Telephone encounter Maddison choi CENTRAL SUPPLY TECH.PRODUCE ASSISTANT Work Phone: [facility] [place] Comment on above: Patient Update; Appo intment Start: 08-30-2022 ambulatory Alina Delvalle MD Work Phone: Pulmonary Medicine Comment on above: Antibiotic Start: 08-09-2022 ambulatory Alina Delvalle MD Work Phone: Pulmonary Medicine Comment on above: test resuls of scan Start: 08-09-2022 Telephone encounter Alina Delvalle MD Work Phone: Pulmonary Medicine Comment on above: Results (Chest CT) Start: 08-04-2022 ambulatory Alison Bhat Staff ord industrial production managerTitle Agent Management Comment on above: Community Monitoring Outreach Start: 08-04-2022 End: 08-04-2022 Subsequent hospital visit by physician [facility] Work Phone: Cat Scan Comment on above: Opacity noted on arjun ging study [R93.89] Start: 08-01-2022 Refill Mady ramos MD Work Phone: [facility] [place] Comment on above: Refill Request Start: 07-29-2022 End: 07-29-2022 Patient encounter procedure Alina Delvalle MD Work Phone: Pulmonary Medicine Comment on above: COPD with exacerbati on (HCC) (Primary Dx); Opacity noted on imaging study; Former cigarette smoker; Atelectasis; Need for influenza vaccination Start: 07-24-2022 Refill Mady ramos MD Work Phone: [facility] [place] Comment on above: Refill Request Start: 06-28-2022 ambulatory Alison Bhat Staff ord industrial production managerTitle Agent Management Comment on above: Community Monitoring Outreach Start: 06-22-2022 Non-patient / Non-visit Dr. Rosalia Dunn Work Phone: [facility] Start: 06-22-2022 End: 06-22-[address] Mady Dunn Work Phone: [facility] Work Phone: Start: 06-22-2022 End: 06-22-[address] Mady Dunn Work Phone: [facility]-Cardiovascular Services Start: 06-16-2022 Telephone encounter Alina Delvalle MD Work Phone: Pulmonary Medicine Comment on above: Patient Update Start: 06-16-2022 End: 06-16-2022 Patient encounter procedure Rosaura Suárez APRN.YARD CRANE OPERATOR Work Phone: [facility] [place] Comment on above: Chronic obstructive pulmonary disease with acute exacerbation (HCC) (Primary Dx) Start: 05-28-2022 End: 05-28-[address] Mady Dunn Work Phone: [facility] Start: 05-26-2022 ambulatory Alison callahan industrial production managerTitle Agent Management Comment on above: Community Monitoring Outreach Start: 05-18-2022 ambulatory Alina Delvalle MD Work Phone: Pulmonary Medicine Comment on above: Chest CT Start: 05-18-2022 E-mail encounter vince m caregiver Alina Delvalle MD Work Phone: [facility] Start: 05-17-2022 End: 05-17-2022 Subsequent hospital visit by physician [facility] Work Phone: Cat Scan Comment on above: Interstitial pulmona ry disease (HCC) [J84.9] Start: 04-30-2022 ambulatory Kolton Benitze industrial production managerTitle Agent Management Comment on above: Community Monitoring Outreach Start: 04-28-2022 End: 04-28-2022 Patient encounter procedure Spencer Boone MD Work Phone: Urology Comment on above: Renal mass (Primary Dx); 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 Start: 04-26-2022 End: 04-26-2022 Subsequent hospital visit by physician Xr [facility] Work Phone: Radiology Comment on above: SOB (shortness of br eath) [R06.02] Start: 04-26-2022 End: 04-26-2022 Patient encounter procedure Alina Delvalle MD Work Phone: Pulmonary Medicine Comment on above: Restrictive lung dis ease (Primary Dx); Chronic obstructive pulmonary disease, unspecified COPD type (HCC); Peripheral edema Start: 04-21-2022 ambulatory UNKNOWN PROVIDER Facili ty:[facility] Start: 04-21-2022 End: 04-21-2022 Subsequent hospital visit by physician [facility] Comment on above: Other specified diso rders of kidney and ureter [N28.89] Start: 04-16-2022 ambulatory Spencer Boone MD Work Phone: [facility] Comment on above: Catscan in [place] Spirometry Test Start: 04-15-2022 End: 04-15-2022 ambulatory [facility] Comment on above: Spirometry Start: 04-15-2022 End: 04-15-2022 Patient encounter procedure Pulm Fct Lab [facility] Start: 04-02-2022 Telephone encounter Spencer Boone MD Work Phone: [facility] Comment on above: Appointment Start: 03-30-2022 ambulatory Ana AvitiaC Work Phone: Pulmonary Medicine Comment on above: renewal medication Start: 03-29-2022 ambulatory Kolton Benitez RN Title Agent Management Comment on above: Community Monitoring Outreach Start: 03-27-2022 Refill Ana AvitiaC Work Phone: Pulmonary Medicine Comment on above: Refill Request Start: 03-09-2022 End: 03-09-2022 Patient encounter procedure Angélica Doan DO Work Phone: Vascular Surgery Comment on above: Venous (peripheral) insufficiency (Primary Dx); Peripheral vascular disease (HCC); Stenosis of left carotid artery Start: 02-25-2022 ambulatory Kolton Benitez RN Ambulatory Best Practice Alerts Comment on above: Community Monitoring Outreach Start: 02-17-2022 Telephone encounter Angélica Doan DO Work Phone: Vascular Surgery Comment on above: Patient Update (lymp hedema pumps) Start: 02-04-2022 End: 02-04-2022 Patient encounter procedure Ana MEDINAC Work Phone: Pulmonary Medicine Comment on above: COPD, mild (HCC) (Pr imary Dx); Allergic rhinitis, unspecified seasonality, unspecified trigger; Former smoker Start: 02-01-2022 End: 02-01-2022 Patient encounter procedure Maddison Renteria CENTRAL SUPPLY TECH.PRODUCE ASSISTANT Work Phone: Internal Medicine [place] Comment on above: Insomnia, unspecifie d type (Primary Dx); Encounter for immunization; Constipation, unspecified constipation type; Primary hypertension; Stage 3a chronic kidney disease (HCC); Simple chronic bronchitis (HCC) Start: 01-25-2022 Telephone encounter Angélica Rohit Doan DO Work Phone: Vascular Surgery Comment on above: Patient Update Start: 01-06-2022 ambulatory Kolton Benitez RN Title Agent Management Comment on above: Community Monitoring Outreach (COPD / CKD Telephonic CDM Outreach) Start: 01-05-2022 Telephone encounter Spencer Boone MD Work Phone: [facility] Comment on above: Orders Start: 12-28-2021 End: 12-28-2021 Patient encounter procedure Spencer Boone MD Work Phone: [facility] Comment on above: 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); Renal mass Start: 12-24-2021 ambulatory Angélica rdz DO Work Phone: Vascular Surgery Comment on above: Appt with Urologist Start: 12-22-2021 ambulatory Kolton Benitez RN Title Agent Management Comment on above: Community Monitoring Outreach (COPD/ CKD Telephonic CDM Outreach) Start: 12-09-2021 Telephone encounter Angélica Doan DO Work Phone: Vascular Surgery Comment on above: Results Start: 12-08-2021 End: 12-08-2021 Patient encounter procedure Angélica Bee Doan DO Work Phone: Vascular Surgery Comment on above: Peripheral vascular disease (HCC) (Primary Dx) Start: 12-08-2021 End: 12-08-2021 Subsequent hospital visit by physician [facility] (I-Stat) Work Phone: Cat Scan Comment on above: Peripheral vascular disease (HCC) [I73.9] Start: 12-07-2021 ambulatory Kolton Benitez RN Title Agent Management Comment on above: Community Monitoring Outreach (COPD Telephonic CDM Outreach) Start: 12-07-2021 Telephone encounter Rolly Gurrola frankie DO Work Phone: Hematology/Oncology Comment on above: Appointment Start: 12-03-2021 ambulatory Kolton Benitez RN Title Agent Management Comment on above: Community Monitoring Outreach (COPD/CKD Telephonic CDM Outreach) Start: 11-24-2021 End: 11-24-2021 Patient encounter procedure Angélica Doan DO Work Phone: Vascular Surgery Comment on above: Venous (peripheral) insufficiency (Primary Dx); Peripheral vascular disease (HCC); Screening for nephropathy Start: 11-20-2021 ambulatory Kolton Benitez RN Title Agent Management Comment on above: Community Monitoring Outreach (COPD/CKD Telephonic Outreach) Start: 11-19-2021 ambulatory Angélica rdz DO Work Phone: Vascular Surgery Comment on above: Swollen feet Start: 11-17-2021 ambulatory Kolton Benitez RN Title Agent Management Comment on above: Community Monitoring Outreach (COPD / CKD Telephonic Outreach) Start: 11-12-2021 ambulatory Kolton Benitez RN Title Agent Management Comment on above: Community Monitoring Outreach (COPD/ CKD Telephonic CDM Outreach) Start: 11-11-2021 End: 11-11-2021 Patient encounter procedure Chanelle Hagen APRN.YARD CRANE OPERATOR Work Phone: [facility] [place] Comment on above: PAD (peripheral dyllan ry disease) (HCC) (Primary Dx) Start: 11-10-2021 ambulatory Mady ramos MD Work Phone: Internal Medicine [place] Comment on above: bilateral feet swell ing; bilateral ankle swelling Start: 11-09-2021 ambulatory Angélica rdz DO Work Phone: Vascular Surgery Comment on above: Swollen feet Start: 10-29-2021 ambulatory Kolton Benitez RN Title Agent Management Comment on above: Community Monitoring Outreach (COPD/ CKD Telephonic CDM Outreach) Start: 10-21-2021 ambulatory Kolton Benitez RN Title Agent Management Comment on above: Community Monitoring Outreach (COPD / CKD Outreach) Procedures Date Procedure Procedure Detail Performing Clinician Start: 01-11-2025 Measurement of occult blood in stool specimen using immunoassay Dr. Viktoriya Manzo MD Work Phone: Start: 01-11-2025 Plain chest X-ray Dr. Viktoriya Manzo MD Work Phone: Start: 01-11-2025 Blood count smear mcrscp w/mnl difrntl wbc count Dr. Viktoriya Manzo MD Work Phone: Start: 01-11-[address] Molina Manzo MD Work Phone: Start: 01-11-2025 Flow cytometry cell surf marker techl only 1st Dr. Viktoriya Manzo MD Work Phone: Start: 01-11-2025 Mean corpuscular hemoglobin concentration determination Dr. Viktoriya Manzo MD Work Phone: Start: 01-11-2025 Myelocyte percent differential count Dr. Viktoriya Manzo MD Work Phone: Start: 01-11-2025 Platelet mean volume determination Dr. Lei Manzo MD Work Phone: Start: 01-07-2025 Plain x-ray of wrist Dr. Viktoriya Manzo MD Work Phone: Start: 01-07-2025 CT of head without contrast Dr. Viktoriya gonzalez MD Work Phone: Start: 01-07-2025 Injection therapeutic carpal tunnel Zhanna Kim PA-C Work Phone: Start: 01-01-[address] Viktoriya Manzo MD Work Phone: Start: 12-19-2024 Us retroperitoneal real time w/image complete Spencer Boone MD Work Phone: Start: 12-18-2024 Iadna-dna/rna gi pthgn multiplex probe tq 6-11 Dr. Viktoriya Manzo MD Work Phone: Start: 12-18-[address] Moise Manzo MD Work Phone: Start: 12-18-[address] Viktoriya Manzo MD Work Phone: Start: 12-18-2024 Ova [place] parasites identification Dr. Moise Manzo MD Work Phone: Start: 12-18-2024 Blood count smear mcrscp w/mnl difrntl wbc count Dr. Viktoriya Manzo MD Work Phone: Start: 12-18-2024 Mean corpuscular hemoglobin concentration determination Dr. Viktoriya Manzo MD Work Phone: Start: 12-18-2024 Nucleated red blood cell count procedure Dr. Viktoriya Manzo MD Work Phone: Start: 12-18-2024 Platelet mean volume determination Dr. Lei Manzo MD Work Phone: Start: 12-17-2024 Measurement of occult blood in stool specimen using immunoassay Dr. Viktoriya Manzo MD Work Phone: Start: 12-17-2024 X-ray of chest, PA and lateral views Dr. Viktoriya Manzo MD Work Phone: Start: 12-17-2024 Urine microscopy: red cells Dr. Viktoriya gonzalez MD Work Phone: Start: 12-17-2024 Urnls dip stick/tablet reagent auto microscopy Dr. Viktoriya Manzo MD Work Phone: Start: 12-17-2024 Computed tomography of abdomen and pelvis with contrast Dr. Viktoriya Manzo MD Work Phone: Start: 12-17-2024 Blood count smear mcrscp w/mnl difrntl wbc count Dr. Viktoriya Manzo MD Work Phone: Start: 12-17-2024 Calculation of international normalized ratio Dr. Viktoriya Manzo MD Work Phone: Start: 12-17-[address] Molina Manzo MD Work Phone: Start: 12-17-2024 Mean corpuscular hemoglobin concentration determination Dr. Viktoriya Manzo MD Work Phone: Start: 12-17-2024 Nucleated red blood cell count procedure Dr. Viktoriya Manzo MD Work Phone: Start: 12-17-2024 Platelet mean volume determination Dr. Lei Manzo MD Work Phone: Start: 11-28-2024 End: 11-28-[address] Viktoriya Manzo MD Work Phone: Start: 11-28-2024 Urine microscopy: red cells Dr. Viktoriya gonzalez MD Work Phone: Start: 11-28-2024 Urnls dip stick/tablet reagent auto microscopy Rosaura Jose Armando AUDIO SPECIALIST-C Work Phone: Start: 11-28-2024 CT of abdomen and pelvis without contrast Rosaura Jose Armando AUDIO SPECIALIST-C Work Phone: Start: 11-28-2024 Estimated creatinine clearance Rosaura Nevaeh jarrett AUDIO SPECIALIST-C Work Phone: Start: 11-28-2024 Mean corpuscular hemoglobin concentration determination Dr. Viktoriya Manzo MD Work Phone: Start: 11-28-2024 Nucleated red blood cell count procedure Dr. Viktoriya Manzo MD Work Phone: Start: 11-28-2024 Platelet mean volume determination Dr. Lei Manzo MD Work Phone: Start: 11-28-[address] Viktoriya Manzo MD Work Phone: Start: 09-27-2024 Esophagogastroduodenoscopy Rosaura Jose Armando AUDIO SPECIALIST-C Work Phone: Start: 06-07-2024 Videoswallow Rosaura Jose Armando AUDIO SPECIALIST-C Work Phone: Start: 06-07-2024 MRI of abdomen with contrast Rosaura Cleave r AUDIO SPECIALIST-C Work Phone: Start: 06-06-2024 CT of abdomen and pelvis without contrast Rosaura Jose Armando AUDIO SPECIALIST-C Work Phone: Start: 06-06-2024 CT of head without contrast Rosaura Jose Armando AUDIO SPECIALIST-C Work Phone: Start: 04-25-2024 Noninvasive ear/pulse oximetry multiple deter Ana Hernandez PA-C Work Phone: Start: 02-08-2024 Radiologic exam abdomen 3+ views Rosaura Benjamin robledo CENTRAL SUPPLY TECH.YARD CRANE OPERATOR Work Phone: Start: 12-20-2023 Spmtry w/vc expiratory [place] w/wo mxml vol vntj Alina Delvalle MD Work Phone: Start: 11-05-[address] Mady Dunn Work Phone: Start: 11-03-2023 Plain chest X-ray Dr. Mady Dunn Work Phone: Start: 11-03-2023 CT of abdomen and pelvis without contrast Dr. Mady Dunn Work Phone: Start: 10-10-2023 Plain chest X-ray Dr. Mady Dunn Work Phone: Start: 10-04-[address] Mady Dunn Work Phone: Start: 10-03-[address] Mady Dunn Work Phone: Start: 10-02-2023 CT angiography of chest with contrast Dr. Mady Dunn Work Phone: Start: 10-02-2023 Plain chest X-ray Dr. Mady Dunn Work Phone: Start: 09-27-2023 Computed tomography of abdomen and pelvis with contrast Dr. Mady Dunn Work Phone: Start: 09-25-2023 Plain chest X-ray Dr. Mady Dunn Work Phone: Start: 09-18-2023 Plain chest X-ray Dr. Mady Dunn Work Phone: Start: 09-16-[address] Mady castro Work Phone: Start: 09-15-[address] Mady Dunn Work Phone: Start: 09-14-2023 Measurement of occult blood in stool specimen using immunoassay Dr. Mady Dunn Work Phone: Start: 09-11-2023 Plain chest X-ray Dr. Mady Dunn Work Phone: Start: 09-09-2023 Measurement of occult blood in stool specimen using immunoassay Dr. Mady Dunn Work Phone: Start: 09-07-2023 Legionella pneumophila antigen assay Dr. Mady Dunn Work Phone: Start: 09-07-2023 Dr. Mady Dunn Work Phone: Start: 09-06-[address] Mady Dunn Work Phone: Start: 09-06-2023 Dr. Mady Dunn Work Phone: Start: 09-06-2023 Plain chest X-ray Dr. Mady Dunn Work Phone: Start: 09-03-2023 Plain chest X-ray Dr. Mady Dunn Work Phone: Start: 09-02-2023 Radiologic exam chest 2 views Rosaura Cleav er CENTRAL SUPPLY TECH.YARD CRANE OPERATOR Work Phone: Start: 08-19-2023 Legionella pneumophila antigen assay Dr. Mady Dunn Work Phone: Start: 08-19-2023 Streptococcus pneumoniae Antigen (M Dr. Mady Dunn Work Phone: Start: 08-19-2023 Dr. Mady Dunn Work Phone: Start: 08-18-2023 Plain chest X-ray Dr. Mady Dunn Work Phone: Start: 08-18-[address] Mady Dunn Work Phone: Start: 08-18-2023 SARS-CoV-2, Influenza & RSV (PCR) Dr. Rosalia Dunn Work Phone: Start: 08-10-2023 Pelvis X-ray Dr. Mady Dunn Work Phone: Start: 08-10-2023 X-ray of lumbar spine, two or three views Dr. Mady Dunn Work Phone: Start: 07-27-2023 Plain chest X-ray Dr. Mady Dunn Work Phone: Start: 07-27-2023 SARS-CoV-2, Influenza & RSV (PCR) Dr. Rosalia Dunn Work Phone: Start: 07-27-2023 Dr. Mady Dunn Work Phone: Start: 07-14-2023 Radiologic exam chest 2 views Rosaura Cleav er CENTRAL SUPPLY TECH.YARD CRANE OPERATOR Work Phone: Start: 07-01-2023 Radiologic exam chest 2 views Rosaura Cleav er CENTRAL SUPPLY TECH.YARD CRANE OPERATOR Work Phone: Start: 06-21-2023 Investigation of transfusion reaction Dr. Mady Dunn Work Phone: Start: 06-21-[address] Mady guajardo Work Phone: Start: 06-19-2023 Plain chest X-ray Start: 05-14-2023 MRI of lumbar spine Start: 05-09-2023 Dxa bone density study 1/> sites axial skel Rosaura Valenzuelar CENTRAL SUPPLY TECH.YARD CRANE OPERATOR Work Phone: Start: 04-25-2023 Radiologic exam chest 2 views Rosaura Cleav er CENTRAL SUPPLY TECH.YARD CRANE OPERATOR Work Phone: Start: 03-23-2023 Radex spine lumbosacral 2/3 views Rosaura C leaver CENTRAL SUPPLY TECH.YARD CRANE OPERATOR Work Phone: Start: 03-23-2023 INFLUENZA VACCINE, PRSV FREE, AGE 65+ YR, HIGH DOSE, QUADRIVALENT (FLUZONE HIGH-DOSE) Rosaura Valenzuelar CENTRAL SUPPLY TECH.YARD CRANE OPERATOR Work Phone: Start: 03-03-2023 X-ray of lumbosacral spine Dr. Mady castro Work Phone: Start: 02-03-2023 CT of abdomen and pelvis with oral contrast Dr. Mady Dunn Work Phone: Start: 12-30-2022 Plain x-ray of pelvis and lower extremity Dr. Mady Dunn Work Phone: Start: 12-30-2022 CT of abdomen and pelvis without contrast Dr. Mady Dunn Work Phone: Start: 12-09-2022 CT of abdomen and pelvis without contrast Dr. Mady Dunn Work Phone: Start: 10-30-2022 Radiologic exam chest 2 views Diana Ri ggs CENTRAL SUPPLY TECH.YARD CRANE OPERATOR Work Phone: Start: 08-04-2022 Ct thorax w/o contrast material Mary Delvalle MD Work Phone: Start: 07-29-2022 INFLUENZA SEASONAL QUADRIVALENT HIGH DOSE AGE 65+ Alina Delvalle MD Work Phone: Start: 06-22-2022 Cardiovascular stress test using pharmacologic stress agent Dr. Mady Dunn Work Phone: Start: 05-17-2022 Ct thorax w/o contrast material Mary Delvalle MD Work Phone: Start: 04-28-2022 Urnls dip [...] 12-08-2021 Cta abdl aorta&bi iliofem w/contrast&postp Angélica Doan DO Work Phone: Start: 02-18-2011 H/O: surgery S/P unilateral salpingo-oophorecto my Kolton Jaffe RN Start: 02-18-2011 History of total hysterectomy S/P WILFREDO (total abdominal hysterectomy) Kolton Jaffe RN Plan of Treatment Date Care Activity Detail Author Start: 01-07-2035 Urine microalbumin profile DTaP,Tdap,Td Vaccine (3 - Td or Tdap) [facility] Start: 09-02-2026 Diabetes Screening Diabetes Screening [facility] Start: 07-19-2026 Diabetes Screening Diabetes Screening [facility] Start: 05-02-2026 Diabetes Screening Diabetes Screening [facility] Start: 12-31-2025 DIABETES SCREEN DIABETES SCREEN [facility] Start: 12-31-2025 Diabetes Screening Diabetes Screening [facility] Start: 12-23-2025 DIABETES SCREEN DIABETES SCREEN [facility] Start: 10-05-2025 DIABETES SCREEN DIABETES SCREEN [facility] Start: 09-19-2025 Hepatitis B surface antibody level LDL Cholesterol [facility] Start: 09-17-2025 DIABETES SCREEN DIABETES SCREEN [facility] Start: 06-04-2025 End: 06-04-2025 Patient encounter procedure 06/04/2025 11:30 AM EST Office Visit Pulmonary Medicine [address] [place] [address] Lissette Dupree APRN.YARD CRANE OPERATOR [address] [place] [address] 6 MTH F/U COPD Pulmonary Medicine Comment on above: 6 MTH F/U COPD Start: 05-09-2025 Screening for osteoporosis Bone Density Screening [facility] Start: 04-08-2025 End: 04-08-2025 Patient encounter procedure 04/08/2025 1:45 PM EDT Office Visit [facility] [address] [place] [address] Spencer Boone MD [address] [place] [id number] 6 month follow up, renal us prior [facility] Comment on above: 6 month follow up, renal us prior Start: 03-30-2025 DIABETES SCREEN DIABETES SCREEN [facility] Start: 03-06-2025 End: 03-06-2025 Patient encounter procedure 03/06/2025 8:00 AM EDT Office Visit [facility] Medicine [place] [address] [place] [address] Viktoriya Manzo MD [address] [place] [address] 2 Month F/U [facility] [place] Comment on above: 2 Month F/U Start: 01-28-2025 DIABETES SCREEN DIABETES SCREEN [facility] Start: 01-11-2025 Esophagogastroduodenoscopy [facility] Start: 01-11-2025 Verification routine [facility] Start: 01-11-2025 Admission procedure [facility] Start: 01-11-2025 Hospital admission, emergency, from emergency room, medical nature [facility] Start: 01-11-2025 [facility] Start: 01-11-2025 End: 01-11-2025 [facility] Start: 01-07-2025 [facility] Start: 01-07-2025 End: 01-07-2025 Patient encounter procedure 01/07/2025 1:45 PM EDT Office Visit [facility] [address] [place] [address] Spencer Boone MD [address] [place] [address] 6 month follow up, renal us prior [facility] Comment on above: 6 month follow up, renal us prior Start: 01-07-2025 End: 01-07-2025 Patient encounter procedure 01/07/2025 11:40 AM EDT Office Visit Internal Medicine [place] [address] [place] [address] Viktoriya Manzo MD [address] [place] [address] 3 month f/u [facility] [place] Comment on above: 3 month f/u Start: 01-01-2025 Colonoscopy w/biopsy single/multiple [facility] Start: 01-01-2025 Colsc flx w/rmvl of tumor polyp lesion snare tq [facility] Start: 01-01-2025 Patient discharge [facility] Start: 12-19-2024 End: 12-19-2024 Patient encounter procedure 12/19/2024 1:00 PM EDT Appointment Radiology [address] [place] [address] 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, 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, 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] Radiology Comment on above: 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, 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, 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] Start: 12-17-2024 [facility] Start: 12-04-2024 Hemoglobin A1c measurement HbA1C [facility] Start: 11-30-2024 End: 11-30-2024 Patient encounter procedure 11/30/2024 2:45 PM EDT Office Visit Pulmonary Medicine [address] [place] [place] [address] Alina Delvalle MD [address] [address] 6 MTH F/U COPD Pulmonary Medicine Comment on above: 6 MTH F/U COPD Start: 11-29-2024 Anxiety Screening Anxiety Screening [facility] Start: 11-29-2024 Hepatitis B surface antibody level LDL Cholesterol [facility] Start: 11-28-2024 [facility] Start: 11-28-2024 [facility] Start: 11-28-2024 Bacteria identified in Urine by Culture Urine Culture [facility] Start: 11-28-2024 Hepatitis B screening Urine Albumin:Creatinine Ratio [facility] Start: 11-15-2024 End: 11-15-2024 Patient encounter procedure 11/15/2024 1:15 PM EDT Office Visit Pulmonary Medicine [address] [place] [address] Alina Delvalle MD [address] [place] [address] 6 MTH F/U COPD Pulmonary Medicine Comment on above: 6 MTH F/U COPD Start: 10-05-2024 End: 01-04-2025 Basic metabolic 2000 panel - Serum or Plasma [facility] Comment on above: Expected: 10/05/2024, Expires: Start: 10-05-2024 End: 10-05-2024 Patient encounter procedure 10/05/2024 2:00 PM EDT Office Visit [facility] [place] [address] [place] [address] Viktoriya Manzo MD [address] [place] [address] 3 month follow up [facility] [place] Comment on above: 3 month follow up Start: 09-27-2024 Esophagogastroduodenoscopy submucosal injection [facility] Start: 09-27-2024 [facility] Start: 09-27-2024 Patient discharge [facility] Start: 08-10-2024 Hemoglobin A1c measurement HbA1C [facility] Start: 07-18-2024 Advance Directive Discussion Advance Directive Discussion [facility] Start: 07-18-2024 Medicare Advantage Annual Wellness Visit Medicare Advantage Annual Wellness Visit [facility] Start: 07-06-2024 End: 10-05-2024 Basic metabolic 2000 panel - Serum or Plasma [facility] Comment on above: Expected: 07/06/2024, Expires: Start: 07-06-2024 End: 10-05-2024 Magnesium [Mass/volume] in Serum or Plasma [facility] Work Phone: Comment on above: Expected: 07/06/2024, Expires: Start: 07-06-2024 End: 07-06-2024 Patient encounter procedure [facility] Comment on above: 3 month follow up Hospital f/u Start: 06-08-2024 Patient discharge [facility] Start: 06-07-2024 [facility] Start: 06-07-2024 Speech therapy assessment [facility] Start: 06-07-2024 Application of intermittent pneumatic compression device [facility] Start: 06-07-2024 End: 06-07-2024 Following clinical pathway protocol [facility] Start: 06-06-2024 End: 06-07-2024 [facility] Start: 06-06-2024 Assessment of risk of venous thromboembolism [facility] Start: 06-06-2024 Care regimes management [facility] Start: 06-06-2024 Inhalation therapy procedure [facility] Start: 06-06-2024 Insertion of catheter into peripheral vein [facility] Start: 06-06-2024 Measuring intake and output [facility] Start: 06-06-2024 Notification of physician [facility] Start: 06-06-2024 Oxygen therapy [facility] Start: 06-06-2024 Providing care according to standard [facility] Start: 06-06-2024 Provision of activity privileges [facility] Start: 06-06-2024 Referral to occupational therapist [facility] Start: 06-06-2024 Referral to service [facility] Start: 06-06-2024 Admission procedure [facility] Start: 06-06-2024 End: 09-05-2024 25-hydroxyvitamin D3 [Mass/volume] in Serum or Plasma [facility] Comment on above: Expected: 06/06/2024, Expires: Start: 06-06-2024 End: 09-05-2024 Bacteria identified in Urine by Culture [facility] Comment on above: Expected: 06/06/2024, Expires: Start: 06-06-2024 End: 09-05-2024 Cobalamin (Vitamin B12) [Mass/volume] in Serum or Plasma [facility] Comment on above: Expected: 06/06/2024, Expires: Start: 06-06-2024 End: 09-05-2024 Folate [Mass/volume] in Serum or Plasma [facility] Comment on above: Expected: 06/06/2024, Expires: Start: 06-06-2024 End: 09-05-2024 Hemoglobin A1c in Blood [facility] Comment on above: Expected: 06/06/2024, Expires: 5 Start: 06-06-2024 End: 09-05-2024 Thyrotropin [Units/volume] in Serum or Plasma [facility] Work Phone: Comment on above: Expected: 06/06/2024, Expires: Start: 06-06-2024 End: 09-05-2024 Urinalysis complete panel - Urine URINALYSIS, WITH MICROSCOPIC Lab Routine Hallucinations Encounter for long-term current use of medication Stage 3b chronic kidney disease (HCC) Expected: 06/06/2024, Expires: 09/05/2024 [facility] Comment on above: Expected: 06/06/2024, Expires: Start: 04-25-2024 End: 04-25-2024 Patient encounter procedure 04/25/2024 2:00 PM EDT Office Visit Pulmonary Medicine [address] [facility] [place] [address] Ana Hernandez PA-C [address] [place] [address] 4mo ov Pulmonary Medicine Comment on above: 4mo ov Start: 04-25-2024 End: 04-25-2024 ambulatory 04/25/2024 1:30 PM EDT Procedure [facility] [address] [facility] [place] [address] [facility], [facility] [address] [facility] [place] [address] Chronic hypoxemic respiratory failure (HCC) [J96.11] [facility] Comment on above: Chronic hypoxemic respiratory failure (H CC) [J96.11] Start: 04-06-2024 End: 04-06-2024 Patient encounter procedure 04/06/2024 9:40 AM EDT Office Visit [facility] Medicine [place] [address] [facility] [place] [address] Rosaura Suárez APRN.YARD CRANE OPERATOR [address] [place] [address] 8 week follow up [facility] [place] Comment on above: 8 week follow up Start: 04-04-2024 End: 04-04-2024 Patient encounter procedure 04/04/2024 10:20 AM EDT Office Visit [facility] [place] [address] [place] [address] Rosaura Suárez APRN.YARD CRANE OPERATOR [address] [place] [address] 8 week follow up [facility] [place] Comment on above: 8 week follow up Start: 03-18-2024 Covid-19 Vaccine () Covid-19 Vaccine () [facility] Start: 03-18-2024 Covid-19 Vaccine () Covid-19 Vaccine () [facility] Start: 03-18-2024 Influenza vaccination Influenza Vaccine (#1) [facility] Start: 03-14-2024 Hemoglobin A1c measurement HbA1C [facility] joann Start: 02-08-2024 End: 05-09-2024 25-hydroxyvitamin D3 [Mass/volume] in Serum or Plasma [facility] Comment on above: Expected: 02/08/2024, Expires: Start: 02-08-2024 End: 05-09-2024 Comprehensive metabolic 2000 panel - Serum or Plasma [facility] Comment on above: Expected: 02/08/2024, Expires: Start: 02-08-2024 End: 05-09-2024 Ferritin [Mass/volume] in Serum or Plasma [facility] Comment on above: Expected: 02/08/2024, Expires: Start: 02-08-2024 End: 05-09-2024 Iron and Iron binding capacity panel - Serum or Plasma [facility] Work Phone: Comment on above: Expected: 02/08/2024, Expires: Start: 02-08-2024 End: 05-09-2024 Magnesium [Mass/volume] in Serum or Plasma [facility] Comment on above: Expected: 02/08/2024, Expires: Start: 02-08-2024 End: 02-08-2024 Patient encounter procedure 02/08/2024 10:00 AM EDT Office Visit Internal Medicine [place] [address] [place] [address] Rosaura Suárez APRN.YARD CRANE OPERATOR [address] [place], [place] [id number] 6 week follow up [facility] [place] Comment on above: 6 week follow up Start: 01-25-2024 DIABETES SCREEN DIABETES SCREEN [facility] Start: 12-28-2023 End: 12-28-2023 Patient encounter procedure 12/28/2023 9:40 AM EDT Office Visit Internal Medicine [place] [address] [place], [place] [id number] Rosaura Suárez APRN.YARD CRANE OPERATOR [address] [place], [place] [id number] 4 week follow up [facility] [place] Comment on above: 4 week follow up Start: 12-23-2023 End: 03-23-2024 Basic metabolic 2000 panel - Serum or Plasma BASIC METABOLIC PANEL Lab Routine Stage 3b chronic kidney disease (HCC) Expected: 12/23/2023, Expires: 03/23/2024 [facility] Comment on above: Expected: 12/23/2023, Expires: Start: 12-23-2023 End: 03-23-2024 CBC panel - Blood by Automated count COMPLETE BLOOD COUNT Lab Routine Macrocytic anemia Stage 3b chronic kidney disease (HCC) Expected: 12/23/2023, Expires: 03/23/2024 [facility] Comment on above: Expected: 12/23/2023, Expires: Start: 12-23-2023 End: 03-23-2024 Cobalamin (Vitamin B12) [Mass/volume] in Serum or Plasma VITAMIN B12 Lab Routine Macrocytic anemia Expected: 12/23/2023, Expires: 03/23/2024 [facility] Work Phone: Comment on above: Expected: 12/23/2023, Expires: 4 Start: 12-23-2023 End: 03-23-2024 Folate [Mass/volume] in Serum or Plasma FOLATE, SERUM Lab Routine Macrocytic anemia Expected: 12/23/2023, Expires: 03/23/2024 [facility] Comment on above: Expected: 12/23/2023, Expires: Start: 12-23-2023 End: 03-23-2024 Magnesium [Mass/volume] in Serum or Plasma MAGNESIUM Lab Routine Hypomagnesemia Expected: 12/23/2023, Expires: 03/23/2024 [facility] Comment on above: Expected: 12/23/2023, Expires: Start: 12-20-2023 End: 12-20-2023 Patient encounter procedure 12/20/2023 3:00 PM EDT Office Visit Pulmonary Medicine [address] [facility] [place] [id number] Ana Hernandez PA-C [address] [place] [address] 2 month follow up with labs Pulmonary Medicine Comment on above: 2 month follow up with labs Start: 12-20-2023 End: 12-20-2023 ambulatory 12/20/2023 2:45 PM EDT Procedure [facility] [address] [place] [id number] [facility], [facility] [address] [facility] [place] [address] 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] [facility] Comment on above: Stage 3 severe COPD by GOLD classificati on (HCC) [J44.9] Start: 11-30-2023 End: 02-29-2024 CBC W Auto Differential panel - Blood COMPLETE BLOOD COUNT AND DIFFERENTIAL Lab Routine Encounter for therapeutic drug monitoring Iron deficiency Expected: 11/30/2023, Expires: 02/29/2024 [facility] Work Phone: Comment on above: Expected: 11/30/2023, Expires: Start: 11-30-2023 End: 02-29-2024 Comprehensive metabolic 2000 panel - Serum or Plasma COMPREHENSIVE METABOLIC PANEL Lab Routine Encounter for therapeutic drug monitoring Expected: 11/30/2023, Expires: 02/29/2024 [facility] Comment on above: Expected: 11/30/2023, Expires: Start: 11-30-2023 End: 02-29-2024 Ferritin [Mass/volume] in Serum or Plasma FERRITIN Lab Routine Iron deficiency Expected: 11/30/2023, Expires: 02/29/2024 [facility] Comment on above: Expected: 11/30/2023, Expires: Start: 11-30-2023 End: 02-29-2024 Hemoglobin A1c in Blood HEMOGLOBIN A1C Lab Routine Type 2 diabetes mellitus with hyperglycemia, without long-term current use of insulin ([facility]) Expected: 11/30/2023, Expires: 02/29/2024 [facility] Comment on above: Expected: 11/30/2023, Expires: Start: 11-30-2023 End: 02-29-2024 Iron and Iron binding capacity panel - Serum or Plasma IRON AND TIBC Lab Routine Iron deficiency Expected: 11/30/2023, Expires: 02/29/2024 [facility] Comment on above: Expected: 11/30/2023, Expires: Start: 11-30-2023 End: 02-29-2024 LIPID PANEL, NONFASTING LIPID PANEL, NONFASTING Lab Routine Type 2 diabetes mellitus with hyperglycemia, without long-term current use of insulin (HCC) Expected: 11/30/2023, Expires: 02/29/2024 [facility] Comment on above: Expected: 11/30/2023, Expires: Start: 11-30-2023 End: 02-29-2024 Microalbumin/Creatinine [Mass Ratio] in Urine ALBUMIN/CREATININE RATIO, URINE Lab Routine Type 2 diabetes mellitus with hyperglycemia, without long-term current use of insulin (HCC) Expected: 11/30/2023, Expires: 02/29/2024 [facility] Comment on above: Expected: 11/30/2023, Expires: Start: 11-30-2023 End: 02-29-2024 Natriuretic peptide.B prohormone N-Terminal [Mass/volume] in Serum or Plasma NT PRO BNP Lab Routine Acute on chronic heart failure with preserved ejection fraction (HCC) Expected: 11/30/2023, Expires: 02/29/2024 [facility] Comment on above: Expected: 11/30/2023, Expires: Start: 11-30-2023 End: 11-30-2023 Patient encounter procedure [facility] [place] Comment on above: 2 week follow up 2 week follow up, Pt will bring BP cuff to be tested for accuracy. Start: 11-16-2023 End: 11-16-2023 Patient encounter procedure 11/16/2023 10:00 AM EDT Office Visit Internal Medicine [place] [address] [place], [place] [address] Rosaura Suárez APRN.YARD CRANE OPERATOR [address] [place] [address] 4 week follow up [facility] [place] Comment on above: 4 week follow up Start: 11-06-2023 Patient discharge [facility] Start: 11-05-2023 End: 11-05-2023 [facility] Start: 11-04-2023 Following clinical pathway protocol [facility] Start: 11-04-2023 Referral to service [facility] Start: 11-04-2023 CBC W Auto Differential panel - Blood [facility] Start: 11-04-2023 [facility] Start: 11-03-2023 Following clinical pathway protocol [facility] Start: 11-03-2023 Application of elastic bandage [facility] Start: 11-03-2023 Assessment of risk of venous thromboembolism [facility] Start: 11-03-2023 Fall prevention [facility] Start: 11-03-2023 Incentive spirometry [facility] Start: 11-03-2023 Inhalation therapy procedure [facility] Start: 11-03-2023 Insertion of catheter into peripheral vein [facility] Start: 11-03-2023 Introduction of urinary catheter [facility] Start: 11-03-2023 Measuring intake and output [facility] Start: 11-03-2023 Notification of physician [facility] Start: 11-03-2023 Oxygen therapy [facility] Start: 11-03-2023 Providing care according to standard [facility] Start: 11-03-2023 Provision of activity privileges [facility] Start: 11-03-2023 Referral to occupational therapist [facility] Start: 11-03-2023 Referral to service [facility] Start: 11-03-2023 [facility] Start: 11-03-2023 Verification routine [facility] Start: 11-03-2023 Admission procedure [facility] Start: 11-03-2023 End: 10-19-2024 Basic metabolic 2000 panel - Serum or Plasma BASIC METABOLIC PANEL Lab Routine Hypocalcemia Hypomagnesemia Expected: 11/03/2023 (Approximate), Expires: 10/19/2024 [facility] Work Phone: Comment on above: Expected: 11/03/2023 (Approximate), Expi res: 10/19/2024 Start: 11-03-2023 End: 10-19-2024 Calcium.ionized [Moles/volume] in Blood CALCIUM, IONIZED Lab Routine Hypocalcemia Hypomagnesemia Expected: 11/03/2023 (Approximate), Expires: 10/19/2024 [facility] Work Phone: Comment on above: Expected: 11/03/2023 (Approximate), Expi res: 10/19/2024 Start: 11-03-2023 End: 10-19-2024 Magnesium [Mass/volume] in Serum or Plasma MAGNESIUM Lab Routine Hypocalcemia Hypomagnesemia Expected: 11/03/2023 (Approximate), Expires: 10/19/2024 [facility] Work Phone: Comment on above: Expected: 11/03/2023 (Approximate), Expi res: 10/19/2024 Start: 11-03-2023 End: 10-19-2024 Parathyrin.intact [Mass/volume] in Serum or Plasma PTH INTACT Lab Routine Hypocalcemia Hypomagnesemia Expected: 11/03/2023 (Approximate), Expires: 10/19/2024 [facility] Work Phone: Comment on above: Expected: 11/03/2023 (Approximate), Expi res: 10/19/2024 Start: 11-03-2023 Blood chemistry [facility] Start: 10-27-2023 Blood chemistry [facility] Start: 10-25-2023 End: 01-24-2024 Basic metabolic 2000 panel - Serum or Plasma BASIC METABOLIC PNL Lab Routine Acute on chronic heart failure with preserved ejection fraction (HCC) Expected: 10/25/2023, Expires: 01/24/2024 [facility] Work Phone: Comment on above: Expected: 10/25/2023, Expires: Start: 10-25-2023 End: 01-24-2024 Natriuretic peptide.B prohormone N-Terminal [Mass/volume] in Serum or Plasma NT PRO BNP Lab Routine Acute on chronic heart failure with preserved ejection fraction (HCC) Expected: 10/25/2023, Expires: 01/24/2024 [facility] Work Phone: Comment on above: Expected: 10/25/2023, Expires: Start: 10-20-2023 Blood chemistry [facility] Start: 10-19-2023 End: 01-18-2024 25-hydroxyvitamin D3 [Mass/volume] in Serum or Plasma VITAMIN D 25 HYDROXY Lab Routine Acute on chronic renal insufficiency Hypocalcemia Vitamin D deficiency Encounter for long-term current use of medication Expected: 10/19/2023, Expires: 01/18/2024 [facility] Work Phone: Comment on above: Expected: 10/19/2023, Expires: Start: 10-19-2023 End: 01-18-2024 CBC W Auto Differential panel - Blood CBC + DIFF Lab Routine Encounter for therapeutic drug monitoring Expected: 10/19/2023, Expires: 01/18/2024 [facility] Work Phone: Comment on above: Expected: 10/19/2023, Expires: Start: 10-19-2023 End: 01-18-2024 Comprehensive metabolic 2000 panel - Serum or Plasma COMP METABOLIC PANEL Lab STAT Acute on chronic renal insufficiency Hypocalcemia Encounter for long-term current use of medication Expected: 10/19/2023, Expires: 01/18/2024 [facility] Work Phone: Comment on above: Expected: 10/19/2023, Expires: Start: 10-19-2023 End: 01-18-2024 Magnesium [Mass/volume] in Serum or Plasma MAGNESIUM BLD Lab STAT Acute on chronic renal insufficiency Encounter for long-term current use of medication Expected: 10/19/2023, Expires: 01/18/2024 [facility] Work Phone: Comment on above: Expected: 10/19/2023, Expires: Start: 10-15-2023 Patient discharge [facility] Start: 10-14-2023 Development of care plan [facility] Start: 10-14-2023 [facility] Start: 10-12-2023 Referral to service [facility] Start: 10-12-2023 Palliative care [facility] Start: 10-11-2023 Blood chemistry [facility] Start: 10-08-2023 Inhalation therapy procedure [facility] Start: 10-07-2023 [facility] Start: 10-06-2023 Development of care plan [facility] Start: 10-06-2023 Developing a treatment plan [facility] Start: 10-05-2023 Following clinical pathway protocol [facility] Start: 10-05-2023 Oxygen therapy [facility] Start: 10-05-2023 Admission procedure [facility] Start: 10-05-2023 Measuring intake and output [facility] Start: 10-05-2023 Patient referral to dietitian [facility] Start: 10-05-2023 Referral to occupational therapist [facility] Start: 10-05-2023 Referral to service [facility] Start: 10-05-2023 Vital signs measurements [facility] Start: 10-05-2023 [facility] Start: 10-05-2023 Patient discharge [facility] Start: 10-05-2023 Patient referral to dietitian [facility] Start: 10-04-2023 XR Chest PA and Lateral [facility] Start: 10-04-2023 [facility] Start: 10-04-2023 Blood chemistry [facility] Start: 10-04-2023 End: 10-04-2023 [facility] Start: 10-03-2023 Development of care plan [facility] Start: 10-03-2023 Blood chemistry [facility] Start: 10-03-2023 Oxygen therapy [facility] Start: 10-03-2023 Referral to occupational therapist [facility] Start: 10-03-2023 Following clinical pathway protocol [facility] Start: 10-03-2023 Elevation of head of bed [facility] Start: 10-03-2023 Inhalation therapy procedure [facility] Start: 10-03-2023 Patient education [facility] Start: 10-03-2023 End: 10-03-2023 Referral to service [facility] Start: 10-03-2023 Respiratory pathogens DNA and RNA panel - Respiratory specimen by JOSE with probe detection [facility] Start: 10-03-2023 Taking nasal swab [facility] Start: 10-03-2023 [facility] Start: 10-03-2023 Bacteria identified in Sputum by Culture [facility] Start: 10-03-2023 Legionella pneumophila Ag [Presence] in Urine [facility] Start: 10-03-2023 Streptococcus pneumoniae antigen assay [facility] Start: 10-03-2023 [facility] Start: 10-03-2023 Admission procedure [facility] Start: 10-03-2023 Patient discharge [facility] Start: 10-03-2023 Patient referral to dietitian [facility] Start: 10-02-2023 Hospital admission, emergency, from emergency room, medical nature [facility] Start: 10-02-2023 [facility] Start: 10-02-2023 Application of elastic bandage [facility] Start: 09-27-2023 [facility] Start: 09-27-2023 Blood chemistry [facility] Start: 09-25-2023 Following clinical pathway protocol [facility] Start: 2023 Blood chemistry [facility] Start: 09-19-2023 Removal of urinary catheter [facility] Start: 09-18-2023 Incentive spirometry [facility] Start: 09-18-2023 [facility] Start: 09-18-2023 Oxygen therapy [facility] Start: 09-16-2023 Egd transoral biopsy single/multiple [facility] Start: 09-16-2023 Egd transoral control bleeding any method [facility] Start: 09-16-2023 Patient discharge [facility] Start: 09-15-2023 [facility] Start: 09-14-2023 Referral to gastroenterology service [facility] Start: 09-14-2023 Administration of blood product [facility] Start: 09-14-2023 [facility] Start: 09-14-2023 Vitamin D, 1,25-dihydroxy measurement [facility] Start: 09-13-2023 Verification routine [facility] Start: 09-13-2023 Speech therapy management [facility] Start: 09-13-2023 Administration of blood product [facility] Start: 09-13-2023 Development of care plan [facility] Start: 09-13-2023 Developing a treatment plan [facility] Start: 09-12-2023 Oxygen therapy [facility] Start: 09-12-2023 Speech therapy assessment [facility] Start: 09-12-2023 Admission procedure [facility] Start: 09-12-2023 Measuring intake and output [facility] Start: 09-12-2023 Patient referral to dietitian [facility] Start: 09-12-2023 Referral to occupational therapist [facility] Start: 09-12-2023 Referral to service [facility] Start: 09-12-2023 Vital signs measurements [facility] Start: 09-12-2023 [facility] Start: 09-12-2023 Patient discharge [facility] Start: 09-12-2023 Patient referral to dietitian [facility] Start: 09-12-2023 [facility] Start: 09-10-2023 Speech therapy assessment [facility] Start: 09-08-2023 Following clinical pathway protocol [facility] Start: 09-07-2023 Referral to front end mechanic [facility] Start: 09-07-2023 Introduction of urinary catheter [facility] Start: 09-06-2023 Respiratory secretion precautions [facility] Start: 09-06-2023 Continuous positive airway pressure ventilation treatment [facility] Start: 09-06-2023 End: 09-06-2023 [facility] Start: 09-06-2023 Care regimes management [facility] Start: 09-06-2023 Notification of physician [facility] Start: 09-06-2023 Elevation of head of bed [facility] Start: 09-06-2023 Patient education [facility] Start: 09-06-2023 Continuous pulse oximetry [facility] Start: 09-06-2023 Physiotherapy of chest [facility] Start: 09-06-2023 Dual pressure spontaneous ventilation support [facility] Start: 09-03-2023 Following clinical pathway protocol [facility] Start: 09-03-2023 Assessment of risk of venous thromboembolism [facility] Start: 09-03-2023 Catheterization of vein [facility] Start: 09-03-2023 Insertion of catheter into peripheral vein [facility] Start: 09-03-2023 Measuring intake and output [facility] Start: 09-03-2023 Oxygen therapy [facility] Start: 09-03-2023 Providing care according to standard [facility] Start: 09-03-2023 Provision of activity privileges [facility] Start: 09-03-2023 Referral to siding coreboard inspector [facility] Start: 09-03-2023 Referral to occupational therapist [facility] Start: 09-03-2023 Referral to service [facility] Start: 09-03-2023 Admission procedure [facility] Start: 09-03-2023 Hospital admission, emergency, from emergency room, medical nature [facility] Start: 09-03-2023 End: 09-03-2023 [facility] Start: 09-03-2023 Inhalation therapy procedure [facility] Start: 09-03-2023 Patient referral to dietitian [facility] Start: 09-02-2023 End: 12-02-2023 CBC W Auto Differential panel - Blood [facility] Work Phone: Comment on above: Expected: 09/02/2023, Expires: Start: 09-02-2023 End: 12-02-2023 Cobalamin (Vitamin B12) [Mass/volume] in Serum or Plasma [facility] Work Phone: Comment on above: Expected: 09/02/2023, Expires: Start: 09-02-2023 End: 12-02-2023 Comprehensive metabolic 2000 panel - Serum or Plasma [facility] Work Phone: Comment on above: Expected: 09/02/2023, Expires: Start: 09-02-2023 End: 12-02-2023 Ferritin [Mass/volume] in Serum or Plasma [facility] Work Phone: Comment on above: Expected: 09/02/2023, Expires: Start: 09-02-2023 End: 12-02-2023 Iron and Iron binding capacity panel - Serum or Plasma [facility] Work Phone: Comment on above: Expected: 09/02/2023, Expires: Start: 09-02-2023 End: 12-02-2023 Magnesium [Mass/volume] in Serum or Plasma [facility] Work Phone: Comment on above: Expected: 09/02/2023, Expires: Start: 09-02-2023 End: 12-02-2023 Natriuretic peptide.B prohormone N-Terminal [Mass/volume] in Serum or Plasma [facility] Work Phone: Comment on above: Expected: 09/02/2023, Expires: Start: 08-20-2023 Patient discharge [facility] Start: 08-20-2023 Referral to occupational therapist [facility] Start: 08-20-2023 Referral to service [facility] Start: 08-19-2023 Electrocardiographic procedure [facility] Start: 08-18-2023 Following clinical pathway protocol [facility] Start: 08-18-2023 Assessment of risk of venous thromboembolism [facility] Start: 08-18-2023 Inhalation therapy procedure [facility] Start: 08-18-2023 Insertion of catheter into peripheral vein [facility] Start: 08-18-2023 Measuring intake and output [facility] Start: 08-18-2023 Oxygen therapy [facility] Start: 08-18-2023 Providing care according to standard [facility] Start: 08-18-2023 Provision of activity privileges [facility] Start: 08-18-2023 Referral to service [facility] Start: 08-18-2023 [facility] Start: 08-18-2023 Admission procedure [facility] Start: 08-18-2023 Verification routine [facility] Start: 08-18-2023 Hospital admission, emergency, from emergency room, medical nature [facility] Start: 08-18-2023 [facility] Start: 08-18-2023 [facility] Start: 07-27-2023 [facility] Start: 07-27-2023 [facility] Start: 07-18-2023 Advance Directive Discussion Advance Directive Discussion [facility] Start: 07-18-2023 Behavioral Health Screening Behavioral Health Screening [facility] Start: 07-18-2023 Depression Assessment Depression Assessment [facility] Start: 06-25-2023 End: 06-25-2023 Patient discharge [facility] Start: 06-22-2023 Following clinical pathway protocol [facility] Start: 06-21-2023 Following clinical pathway protocol [facility] Start: 06-21-2023 Inhalation therapy procedure [facility] Start: 06-21-2023 [facility] Start: 06-20-2023 Admission procedure [facility] Start: 06-19-2023 [facility] Start: 06-19-2023 Following clinical pathway protocol [facility] Start: 06-19-2023 Assessment of risk of venous thromboembolism [facility] Start: 06-19-2023 Insertion of catheter into peripheral vein [facility] Start: 06-19-2023 Providing care according to standard [facility] Start: 06-19-2023 Provision of activity privileges [facility] Start: 06-19-2023 Referral to occupational therapist [facility] Start: 06-19-2023 Referral to service [facility] Start: 06-19-2023 [facility] Start: 06-19-2023 Verification routine [facility] Start: 06-19-2023 Respiratory Panel (PCR) Respiratory Panel (PCR) [facility] Start: 06-19-2023 Oxygen therapy [facility] Start: 06-19-2023 Troponin I measurement [facility] Start: 06-19-2023 Admission procedure [facility] Start: 06-19-2023 Hospital admission, emergency, from emergency room, medical nature [facility] Start: 03-23-2023 End: 05-23-2023 Basic metabolic 2000 panel - Serum or Plasma BASIC METABOLIC PNL Lab Routine Encounter for therapeutic drug monitoring Primary hypertension Stage 3a chronic kidney disease (HCC) Expected: 03/23/2023, Expires: 05/23/2023 [facility] [place] Work Phone: Comment on above: Expected: 03/23/2023, Expires: 3 Start: 03-23-2023 End: 05-23-2023 CBC W Auto Differential panel - Blood CBC + DIFF Lab Routine Encounter for therapeutic drug monitoring Expected: 03/23/2023, Expires: 05/23/2023 [facility] [place] Work Phone: Comment on above: Expected: 03/23/2023, Expires: 3 Start: 03-18-2023 Covid-19 Vaccine () Covid-19 Vaccine () [facility] Start: 03-18-2023 Influenza vaccination INFLUENZA (#1) [facility] Start: 03-17-2023 [facility] Start: 10-01-2022 End: 12-01-2022 Basic metabolic 2000 panel - Serum or Plasma BASIC METABOLIC PNL Lab Routine Stage 3a chronic kidney disease (HCC) Essential hypertension Encounter for long-term current use of medication Expected: 10/01/2022 (Approximate), Expires: 12/01/2022 [facility] [place] Work Phone: Comment on above: Expected: 10/01/2022 (Approximate), Expi res: 12/01/2022 Start: 07-18-2022 ADVANCE DIRECTIVE DISCUSSION ADVANCE DIRECTIVE DISCUSSION [facility] Start: 07-18-2022 DEPRESSION ASSESSMENT DEPRESSION ASSESSMENT [facility] Start: 04-26-2022 End: 06-26-2022 Natriuretic peptide.B prohormone N-Terminal [Mass/volume] in Serum or Plasma [facility] [place] Work Phone: Comment on above: Expected: 04/26/2022, Expires: 2 Start: 03-18-2022 Influenza vaccination INFLUENZA (#1) [facility] Start: 10-22-2021 Hepatitis B surface antibody level LDL Cholesterol [facility] Start: 07-18-2021 ADVANCE DIRECTIVE DISCUSSION ADVANCE DIRECTIVE DISCUSSION [facility] Start: 07-18-2021 DEPRESSION ASSESSMENT DEPRESSION ASSESSMENT [facility] Start: 02-11-2021 COVID-19 VACCINE (3 - Booster for Moderna series) COVID-19 VACCINE (3 - Booster for Moderna series) [facility] Start: 11-09-2020 COVID-19 VACCINE (3 - Booster for Moderna series) COVID-19 VACCINE (3 - Booster for Moderna series) [facility] Start: 11-09-2020 COVID-19 VACCINE (3 - Moderna series) COVID-19 VACCINE (3 - Moderna series) [facility] Start: 06-14-2017 End: 06-14-2017 N-invas physiologic std lxtr art compl bi PVR with exercise [facility] Work Phone: Start: 06-14-2017 End: 06-14-2017 Appointment Appointment [facility] Work Phone: Start: 01-02-2015 Hepatitis B screening Urine Albumin:Creatinine Ratio [facility] Start: 2012 RSV Vaccine (1 - 1-dose 75+ series) RSV Vaccine (1 - 1-dose 75+ series) [facility] Start: 1997 RSV Vaccine (1 - 1-dose 60+ series) RSV Vaccine (1 - 1-dose 60+ series) [facility] Start: 09-21-1987 SHINGRIX VACCINE (1 of 2) SHINGRIX VACCINE (1 of 2) [facility] Start: 09-21-1947 Diabetic foot examination Diabetic Foot Exam [facility] Start: 09-21-1947 Glaucoma screening Dilated Retinal Exam [facility] Start: 09-21-1943 PNEUMOCOCCAL: 65+ (1 - PCV) PNEUMOCOCCAL: 65+ (1 - PCV) [facility] Start: 1942 Hemoglobin A1c measurement HbA1C [facility] joann Alanine aminotransfe rase [Enzymatic activity/volume] in Serum or Plasma [facility] Albumin [Mass/volume ] in Serum or Plasma [facility] Alkaline phosphatase [Enzymatic activity/volume] in Serum or Plasma [facility] Anion gap measurement [facility] Anion gap measurement [facility] Anion gap measurement [facility] Anion gap measurement [facility] Anion gap measurement [facility] Aspartate aminotrans ferase [Enzymatic activity/volume] in Serum or Plasma [facility] Bacteria identified in Urine by Culture [facility] Bacteria identified in Urine by Culture [facility] Bilirubin measurement, urine [facility] Bilirubin, total measurement [facility] BUN/Creatinine ratio [facility] BUN/Creatinine ratio [facility] BUN/Creatinine ratio [facility] BUN/Creatinine ratio [facility] BUN/Creatinine ratio [facility] Calcium [Mass/volume ] in Serum or Plasma [facility] Calcium [Mass/volume ] in Serum or Plasma [facility] Calcium [Mass/volume ] in Serum or Plasma [facility] Calcium [Mass/volume ] in Serum or Plasma [facility] Calcium [Mass/volume ] in Serum or Plasma [facility] Carbon dioxide, tota l [Moles/volume] in Serum or Plasma [facility] Carbon dioxide, tota l [Moles/volume] in Serum or Plasma [facility] Carbon dioxide, tota l [Moles/volume] in Serum or Plasma [facility] Carbon dioxide, tota l [Moles/volume] in Serum or Plasma [facility] Carbon dioxide, tota l [Moles/volume] in Serum or Plasma [facility] CBC W Auto Different ial panel - Blood [facility] Chloride [Moles/volu me] in Serum or Plasma [facility] Chloride [Moles/volu me] in Serum or Plasma [facility] Chloride [Moles/volu me] in Serum or Plasma [facility] Chloride [Moles/volu me] in Serum or Plasma [facility] Chloride [Moles/volu me] in Serum or Plasma [facility] Clostridioides diffi cile DNA [Presence] in Unspecified specimen by JOSE with probe detection [facility] Colonoscopy [facility] Creatinine [Moles/vo lume] in Serum or Plasma [facility] Creatinine [Moles/vo lume] in Serum or Plasma [facility] Creatinine [Moles/vo lume] in Serum or Plasma [facility] Creatinine [Moles/vo lume] in Serum or Plasma [facility] Creatinine [Moles/vo lume] in Serum or Plasma [facility] Ct abdomen w/o & w/c ontrast material CT KIDNEY WO/W IVCON Radiology Routine Other specified disorders of kidney and ureter 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 04/21/2022 3:01 PM EDT [facility] [place] Work Phone: End: 08-28-2023 Ct thorax w/o contrast material CT CHEST WO IVCON Radiology Routine Opacity noted on imaging study Former cigarette smoker Atelectasis 1 Occurrences starting 07/29/2022 until 08/28/2023 [facility] [place] Work Phone: Comment on above: 1 Occurrences starting 07/29/2022 until 08/28/2023 End: 12-24-2022 Cta abdl aorta&bi iliofem w/contrast&postp CTA ABD/PEL LOWER EXTREM W IVCON Radiology Routine Peripheral vascular disease (HCC) 1 Occurrences starting 11/24/2021 until 12/24/2022 [facility] [place] Work Phone: Comment on above: 1 Occurrences starting 11/24/2021 until 12/24/2022 End: 06-04-2024 DXA-AXIAL SKELETON DXA-AXIAL SKELETON Radiology Routine Osteopenia of lumbar spine 1 Occurrences starting 05/06/2023 until 06/04/2024 [facility] [place] Work Phone: Comment on above: 1 Occurrences starting 05/06/2023 until 06/04/2024 Erythrocyte mean cor puscular volume determination [facility] Erythrocyte mean cor puscular volume determination [facility] Erythrocyte mean cor puscular volume determination [facility] Erythrocyte mean cor puscular volume determination [facility] Erythrocyte mean cor puscular volume determination [facility] Folate [Mass/volume] in Serum or Plasma [facility] Giardia lamblia Ag [ Presence] in Stool by Immunoassay [facility] Glucose [Mass/volume ] in Serum or Plasma [facility] Glucose [Mass/volume ] in Serum or Plasma [facility] Glucose [Mass/volume ] in Serum or Plasma [facility] Glucose [Mass/volume ] in Serum or Plasma [facility] Glucose [Mass/volume ] in Serum or Plasma [facility] Hematocrit [Volume F raction] of Blood [facility] Hematocrit [Volume F raction] of Blood [facility] Hematocrit [Volume F raction] of Blood [facility] Hematocrit [Volume F raction] of Blood [facility] Hematocrit [Volume F raction] of Blood [facility] Hematocrit [Volume F raction] of Blood [facility] Hemoglobin [Mass/volume] in Blood [facility] Hemoglobin [Mass/volume] in Blood [facility] Hemoglobin [Mass/volume] in Blood [facility] Hemoglobin [Mass/volume] in Blood [facility] Hemoglobin [Mass/volume] in Blood [facility] Hemoglobin [Mass/volume] in Blood [facility] Hemoglobin [Presence] in Urine [facility] Lactic acid measurement [facility] Lactic acid measurement [facility] Leukocytes [#/volume] in Blood [facility] Leukocytes [#/volume] in Blood [facility] Leukocytes [#/volume] in Blood [facility] Leukocytes [#/volume] in Blood [facility] Leukocytes [#/volume] in Blood [facility] Mean corpuscular hem oglobin concentration determination [facility] Mean corpuscular hem oglobin concentration determination [facility] Mean corpuscular hem oglobin concentration determination [facility] Mean corpuscular hem oglobin concentration determination [facility] Mean corpuscular hem oglobin concentration determination [facility] Mean corpuscular hem oglobin determination [facility] Mean corpuscular hem oglobin determination [facility] Mean corpuscular hem oglobin determination [facility] Mean corpuscular hem oglobin determination [facility] Mean corpuscular hem oglobin determination [facility] Measurement of keton es in urine using dipstick [facility] Measurement of renal function [facility] Measurement of renal function [facility] Measurement of renal function [facility] Measurement of renal function [facility] Measurement of renal function [facility] Microscopic urinalysis [facility] Neutrophil count [facility] Neutrophil count [facility] Neutrophil count [facility] Neutrophil count [facility] Neutrophil count [facility] Neutrophil percent d ifferential count [facility] Neutrophil percent d ifferential count [facility] Neutrophil percent d ifferential count [facility] Neutrophil percent d ifferential count [facility] Neutrophil percent d ifferential count [facility] Nucleic acid assay [facility] Organism count, micr oscopic method [facility] Ova OR parasites identification [facility] End: 01-18-2025 OXIMETRY WITH AMBULATION OXIMETRY WITH AMBULATION PFT Routine Chronic hypoxemic respiratory failure (HCC) 1 Occurrences starting 12/20/2023 until 01/18/2025 [facility] [place] Work Phone: Comment on above: 1 Occurrences starting 12/20/2023 until 01/18/2025 Patient Education [facility] Work Phone: Patient referral [facility] Work Phone: PFIZER-BIONTECH COVI D-19 VACCINE, AGE 12+ YR ([place]) PFI[employer]ER-[employer]ION[employer]CH COVID-19 VACCINE, AGE 12+ YR ([place]) Immunization/Injectio n Routine Encounter for immunization 1 Occurrences starting 02/01/2022 [facility] [place] Work Phone: Comment on above: 1 Occurrences starting 02/01/2022 pH of Urine [facility] Platelets [#/volume] in Blood [facility] Platelets [#/volume] in Blood [facility] Platelets [#/volume] in Blood [facility] Platelets [#/volume] in Blood [facility] Platelets [#/volume] in Blood [facility] Potassium [Moles/vol ume] in Serum or Plasma [facility] Potassium [Moles/vol ume] in Serum or Plasma [facility] Potassium [Moles/vol ume] in Serum or Plasma [facility] Potassium [Moles/vol ume] in Serum or Plasma [facility] Potassium [Moles/vol ume] in Serum or Plasma [facility] Protein measurement [facility] End: 04-21-2024 Radex spine lumbosacral 2/3 views XR LUMBAR GENERAL 3V AP/LAT/L5-S1 Radiology Routine Lumbar pain 1 Occurrences starting 03/23/2023 until 04/21/2024 [facility] [place] Work Phone: Comment on above: 1 Occurrences starting 03/23/2023 until 04/21/2024 Radex spine lumbosacral 2/3 view s XR LUMBAR GENERAL 3V AP/LAT/L5-S1 Radiology Routine Lumbar pain 03/23/2023 10:20 AM EDT [facility] [place] Work Phone: End: 04-21-2024 Radex spine thoracic 2 views XR THORACIC LIMITED 2V AP/LAT Radiology Routine Chronic bilateral thoracic back pain 1 Occurrences starting 03/23/2023 until 04/21/2024 [facility] [place] Work Phone: Comment on above: 1 Occurrences starting 03/23/2023 until 04/21/2024 Radex spine thoracic 2 views XR THORACIC LIMITED 2V AP/LAT Radiology Routine Chronic bilateral thoracic back pain 03/23/2023 10:20 AM EDT [facility] [place] Work Phone: End: 05-26-2023 Radiologic exam chest 2 views XR CHEST 2V FRONTAL/LAT Radiology Routine 1 Occurrences starting 04/26/2022 until 05/26/2023 [facility] [place] Work Phone: Comment on above: 1 Occurrences starting 04/26/2022 until 05/26/2023 End: 04-26-2022 Radiologic exam chest 2 views [facility] [place] Work Phone: Comment on above: 1 Occurrences starting 04/26/2022 until 04/26/2022 End: 07-30-2024 Radiologic exam chest 2 views XR CHEST 2V FRONTAL/LAT Radiology Routine COPD with exacerbation (HCC) 1 Occurrences starting 07/01/2023 until 07/30/2024 [facility] [place] Work Phone: Comment on above: 1 Occurrences starting 07/01/2023 until 07/30/2024 Radiologic exam chest 2 views XR CHEST 2V FRONTAL/LAT Radiology Routine COPD with exacerbation (HCC) 07/01/2023 2:46 PM EST [facility] [place] Work Phone: Red blood cell count [facility] Red blood cell count [facility] Red blood cell count [facility] Red blood cell count [facility] Red blood cell count [facility] Red cell distributio n width determination [facility] Red cell distributio n width determination [facility] Red cell distributio n width determination [facility] Red cell distributio n width determination [facility] Red cell distributio n width determination [facility] Respiratory pathogen s DNA and RNA panel - Respiratory specimen by JOSE with probe detection [facility] Sodium [Moles/volume ] in Serum or Plasma [facility] Sodium [Moles/volume ] in Serum or Plasma [facility] Sodium [Moles/volume ] in Serum or Plasma [facility] Sodium [Moles/volume ] in Serum or Plasma [facility] Sodium [Moles/volume ] in Serum or Plasma [facility] Specific gravity of Urine [facility] End: 03-06-2023 SPIROMETRY BASELINE ONLY SPIROMETRY BASELINE ONLY PFT Routine COPD, mild (HCC) 1 Occurrences starting 02/04/2022 until 03/06/2023 [facility] [place] Work Phone: Comment on above: 1 Occurrences starting 02/04/2022 until 03/06/2023 SPIROMETRY BASELINE ONLY SPIROME TRY BASELINE ONLY PFT Routine COPD, mild (HCC) 04/15/2022 9:12 AM EDT [facility] [place] Work Phone: Total protein measurement [facility] Troponin T.cardiac [ Mass/volume] in Serum or Plasma by High sensitivity method [facility] Urea nitrogen [Mass/ volume] in Serum or Plasma [facility] Urea nitrogen [Mass/ volume] in Serum or Plasma [facility] Urea nitrogen [Mass/ volume] in Serum or Plasma [facility] Urea nitrogen [Mass/ volume] in Serum or Plasma [facility] Urea nitrogen [Mass/ volume] in Serum or Plasma [facility] Urine culture [facility] Urine dipstick for glucose [facility] Urine dipstick for l eukocyte esterase [facility] Urine dipstick for nitrite [facility] Urine dipstick for protein 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 1 Occurrences starting 09/15/2023 until 10/14/2024 [facility] [place] Work Phone: Comment on above: 1 Occurrences starting 09/15/2023 until 10/14/2024 End: 07-15-2025 US Kidney - bilateral and Urinary bladder US KIDNEY/BLADDER Radiology Routine 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, unspecified laterality Renal cyst 1 Occurrences starting 06/15/2024 until 07/15/2025 [facility] [place] Work Phone: Comment on above: 1 Occurrences starting 06/15/2024 until 07/15/2025 End: 01-27-2023 US KIDNEY/BLADDER US KIDNEY/BLADDER Radiology Routine Renal mass 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 1 Occurrences starting 12/28/2021 until 01/27/2023 [facility] [place] Work Phone: Comment on above: 1 Occurrences starting 12/28/2021 until 01/27/2023 End: 05-28-2023 US KIDNEY/BLADDER US KIDNEY/BLADDER Radiology Routine Renal mass 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 1 Occurrences starting 04/28/2022 until 05/28/2023 [facility] [place] Work Phone: Comment on above: 1 Occurrences starting 04/28/2022 until 05/28/2023 End: 01-14-2024 US KIDNEY/BLADDER US KIDNEY/BLADDER Radiology Routine 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 1 Occurrences starting 12/15/2022 until 01/14/2024 [facility] [place] Work Phone: Comment on above: 1 Occurrences starting 12/15/2022 until 01/14/2024 End: 09-02-2024 US Lower extremity vein US LEG VEIN DVT [facility] Vascular Lab Routine Pain of right lower extremity 1 Occurrences starting 09/02/2023 until 09/02/2024 [facility] [place] Work Phone: Comment on above: 1 Occurrences starting 09/02/2023 until 09/02/2024 White blood cell count [facility] End: 03-09-2025 XR Abdomen GE 3 Views AP and Oblique and Cone XR ABDOMEN 3V KUB W/OBLIQUES Radiology Routine Acute left flank pain History of kidney stones 1 Occurrences starting 02/08/2024 until 03/09/2025 [facility] Comment on above: 1 Occurrences starting 02/08/2024 until 03/09/2025 XR Abdomen GE 3 View s AP and Oblique and Cone XR ABDOMEN 3V KUB W/OBLIQUES Radiology Routine Acute left flank pain History of kidney stones 02/08/2024 11:42 AM EDT [facility] End: 10-01-2024 XR Chest PA and Lateral XR CHEST 2V FRONTAL/LAT Radiology Routine Exercise-induced asthma Chronic obstructive pulmonary disease with acute exacerbation (HCC) COVID General weakness Fatigue, unspecified type SOB (shortness of breath) Chronic hypoxic respiratory failure, on home oxygen therapy (HCC) 1 Occurrences starting 09/02/2023 until 10/01/2024 [facility] [place] Work Phone: Comment on above: 1 Occurrences starting 09/02/2023 until 10/01/2024 XR Chest PA and Lateral XR CHEST 2V FRONTAL/LAT Radiology Routine Exercise-induced asthma Chronic obstructive pulmonary disease with acute exacerbation (HCC) COVID General weakness Fatigue, unspecified type SOB (shortness of breath) Chronic hypoxic respiratory failure, on home oxygen therapy (HCC) 09/02/2023 9:21 AM EST [facility] [place] Work Phone: End: 11-04-2025 XR Shoulder - right 3 Views XR SHOULDER GENERAL 3V OR MORE AP/TRUE AP/OTHER RIGHT Radiology Routine Chronic right shoulder pain 1 Occurrences starting 10/05/2024 until 11/04/2025 [facility] [place] Work Phone: Comment on above: 1 Occurrences starting 10/05/2024 until 11/04/2025 XR Shoulder - right 3 Views XR S HOULDER GENERAL 3V OR MORE AP/TRUE AP/OTHER RIGHT Radiology Routine Chronic right shoulder pain 10/05/2024 3:43 PM EDT [facility] Immunizations Immunization Date Immunization Notes Care Provider Fa [facility] 01-07-2025 tetanus toxoid, redu maria dolores diphtheria toxoid, and acellular pertussis vaccine, adsorbed Dr. Viktoriya Manzo MD Work Phone: [facility] 04-06-2024 influenza, high dose seasonal, preservative-free Rosaura Suárez APRN.YARD CRANE OPERATOR Work Phone: [facility] 03-23-2023 influenza (HD-IIV4) vaccine, age 65+ yr, high dose, quadrivalent, PF (FLUZONE HIGH-DOSE) Rosaura Suárez CENTRAL SUPPLY TECH.YARD CRANE OPERATOR Work Phone: [facility] Work Phone: 03-23-2023 influenza virus vacc ine, unspecified formulation Rosaura Jose Armando CENTRAL SUPPLY TECH.YARD CRANE OPERATOR Work Phone: [facility] 07-29-2022 influenza, high-dose , quadrivalent vaccine (FLUZONE HIGH DOSE QUADRIVALENT) Alina Delvalle MD Work Phone: [facility] 05-01-2021 influenza, high-dose , quadrivalent vaccine (FLUZONE HIGH DOSE QUADRIVALENT) Kolton Jaffe RN [facility] Work Phone: 09-14-2020 COVID-19 vaccine, fu ll dose (MODERNA) Kolton Jaffe RN [facility] Work Phone: 09-11-2020 Covid (Moderna) Dr. Mady jeffers Work Phone: [facility] 08-16-2020 COVID-19 vaccine, fu ll dose (MODERNA) Kolton Jaffe [facility] Work Phone: 08-14-2020 Covid (Moderna) Dr. Mady jeffers Work Phone: [facility] 04-04-2020 influenza, high-dose , quadrivalent vaccine (FLUZONE HIGH DOSE QUADRIVALENT) Kolton Jaffe [facility] 05-04-2019 influenza, high dose seasonal, preservative-free Kolton Jaffe [facility] 07-07-2018 Influenza, high dose seasonal Rosaura Suárez AUDIO SPECIALIST-C Work Phone: [facility] 07-07-2018 influenza, high dose seasonal, preservative-free Kolton Jaffe [facility] 05-07-2017 influenza, injectabl e, quadrivalent, contains preservative [place] Jaffe [facility] Work Phone: 05-07-2017 influenza, injectabl e, quadrivalent, preservative free Alison Hi [facility] Work Phone: 05-07-2017 influenza, seasonal, injectable Alina Delvalle MD Work Phone: [facility] Work Phone: 05-07-2017 Seasonal, quadrivale nt, recombinant, injectable influenza vaccine, preservative free Dr. Mady Dunn Work Phone: [facility] 06-16-2016 influenza, high dose seasonal, preservative-free Kolton Jaffe RN [facility] 05-24-[address] Mady Dunn Work Phone: [facility] 05-24-2016 influenza, injectabl e, quadrivalent, preservative free Alina Delvalle MD Work Phone: [facility] Work Phone: 05-24-2016 influenza, seasonal, injectable Alison Hi RN [facility] Work Phone: 05-18-2016 influenza, injectabl e, quadrivalent, preservative free Dr. Mady Dunn Work Phone: [facility] 05-01-2015 influenza, injectabl e, quadrivalent, preservative free Dr. Mady Dunn Work Phone: [facility] 05-01-2015 influenza, seasonal, injectable Kolton Jaffe RN [facility] 11-14-2014 pneumococcal conjuga te vaccine, 13 valent Kolton Jaffe RN [facility] 10-22-2014 pneumococcal conjuga te vaccine, [address] Mady Dunn Work Phone: [facility] 04-16-2014 influenza, injectabl e, quadrivalent, preservative free Dr. Mady Dunn Work Phone: [facility] 07-04-2013 influenza virus vacc ine, unspecified formulation Kolton Jaffe RN [facility] 04-20-2013 influenza, injectabl e, quadrivalent, preservative free Dr. Mady Dunn Work Phone: [facility] 03-17-2013 tetanus toxoid, redu maria dolores diphtheria toxoid, and acellular pertussis vaccine, adsorbed Kolton Jaffe RN [facility] 10-22-2012 pneumococcal polysaccharide vaccine, 23 valent Kolton Jaffe RN [facility] 04-24-2012 influenza virus vacc ine, unspecified formulation Kolton Jaffe RN [facility] 04-21-2011 influenza virus vacc ine, unspecified formulation Kolton Jaffe RN [facility] 08-21-2010 influenza virus vacc ine, unspecified formulation Kolton Jaffe RN [facility] 05-01-2009 influenza virus vacc ine, unspecified formulation Kolton Jaffe RN [facility] 05-20-2008 influenza virus vacc ine, unspecified formulation Kolton Jaffe RN [facility] Work Phone: 05-20-2008 pneumococcal polysaccharide vaccine, 23 valent Kolton Jaffe RN [facility] Work Phone: 05-20-2005 influenza virus vacc ine, unspecified formulation Kolton Jaffe RN [facility] Work Phone: Payers Date Payer Category Payer Self-pay [id number] 2020 Medicare MMO MEDICARE MMO MEDADVANTAGE HMO [id number] 2020-Present [phone] [address] [place] [id number] O [id number] 2020 Medicare MMO MEDICARE MMO MEDADVANTAGE HMO [id number] 2020-Present [phone] [address] [place] [address] O [id number] 2020 Medicare (Managed Care) MMO CLAUDIA DVANTAGE HMO [id number] 2020 Unknown [id number] 2011 Unknown [id number] 2002 Medicare [id number] Unknown [id number] .2.462 Unknown [id number] 2.16.840.1.086376.3.579 .2.462 Unknown [id number] 2.16.840.1.952043.3.579 .2.462 Unknown [id number] 2.16.840.1.398049.3.579 .2.462 Unknown [id number] 2.16.840.1.226535.3.579 .2.462 Unknown [id number] 2.16.840.1.644448.3.579 .2.462 Unknown [id number] 2.16.840.1.714006.3.579 .2.462 Unknown [id number] 2.16.840.1.223236.3.579 .2.462 Unknown [id number] 2.840.1.097401.3.579 .2.462 Unknown [id number] 2.840.1.598201.3.579 .2.462 Unknown [id number] 2..840.1.350948.3.579 .2.462 Unknown [id number] 2..840.1.712437.3.579 .2.462 Unknown [id number] 2.16.840.1.482983.3.579 .2.462 Unknown [id number] 2.16840.1.723772.3.579 .2.462 Unknown [id number] 2.840.1.551434.3.579 .2.462 Unknown [id number] 2.16.840.1.242984.3.579 .2.462 Unknown [id number] 2.16.840.1.106149.3.579 .2.462 Unknown [id number] 2.16.840.1.879497.3.579 .2.462 Unknown [id number] 2.16.840.1.100700.3.579 .2.462 Unknown [id number] 2.16840.1.217845.3.579 .2.462 Unknown [id number] 2.16.840.1.395789.3.579 .2.462 Unknown [id number] 2.16.840.1.614661.3.579 .2.462 Unknown [id number] 2.16.840.1.215200.3.579 .2.462 Unknown [id number] 2.16.840.1.241200.3.579 .2.462 Unknown [id number] 2.16.840.1.084519.3.579 .2.462 Social History Date Type Detail Facility Start: 10-11-2016 End: 01-11-2025 Tobacco smoking status NHIS Ex-smoker [facility] Work Phone: Start: 08-11-1963 End: 10-04-2016 History of tobacco use Current smoker [facility] Work Phone: Start: 08-11-1963 End: 10-04-2016 History of tobacco use Cigarette Smoker [facility] Work Phone: Start: 10-11-2016 End: 12-27-2022 Cigarettes smoked current (pack per day) - Reported 1 [facility] Start: 10-11-2016 End: 04-06-2024 Tobacco use and exposure Smokeless tobacco non-user [facility] Work Phone: Start: 08-25-2021 End: 10-30-2022 Alcohol intake Current drinker of alcohol (finding) [facility] Start: 05-24-2020 End: 09-11-2022 History SDOH Alcohol Frequency 1 [facility] Start: 05-24-2020 History SDOH Alcohol Std Drinks 98 [facility] Start: 07-30-2021 History SDOH Alcohol Comment very seldom [facility] Start: 05-24-2020 End: 09-11-2022 History SDOH Social Connections Phone 3 [facility] Start: 05-24-2020 End: 09-11-2022 History SDOH Social Connections Membership 2 [facility] Start: 05-24-2020 End: 09-11-2022 History SDOH Social Connections Living 5 [facility] Start: 05-24-2020 End: 09-11-2022 History SDOH Physical Activity DPW 0 [facility] Start: 05-24-2020 Education 12 [facility] Start: 08-11-2018 End: 03-09-2022 Tobacco Comment 10-20 year period in 30-40s when quit. [facility] Start: 1935 Sex Assigned At Not on file C [facility] Start: 11-01-2021 End: 04-21-2022 Exposure to SARS-CoV-2 (event) Not sure [facility] Start: 05-28-2022 End: 11-03-2023 Tobacco smoking status NHIS Unknown if ever smoked [facility] Start: 1935 Sex Assigned At Female [facility] Start: 09-11-2022 End: 12-27-2022 Social connection and isolation panel [facility] Do you belong to any clubs or organizations such as judaism groups, unions, fraternal or athletic groups, or school groups? No [facility] Are you now , , , , never or living with a partner? [facility] How often to you hav e a drink containing alcohol? Never [facility] How many standard dr inks containing alcohol do you have on a typical day? Patient does not drink [facility] Do you feel stress - tense, restless, nervous, or anxious, or unable to sleep at night because your mind is troubled all the time - these days [OSQ] Only a little [facility] (I/We) worried wheth er (my/our) food would run out before (I/we) got money to buy more. Never true [facility] Start: 10-07-2020 Sexual orientation Choose not to disclose [facility] Do you feel stress - tense, restless, nervous, or anxious, or unable to sleep at night because your mind is troubled all the time - these days [OSQ] To some extent [facility] Start: 10-13-2023 End: 01-07-2025 Alcohol intake Ex-drinker (finding) [facility] Do you feel stress - tense, restless, nervous, or anxious, or unable to sleep at night because your mind is troubled all the time - these days [OSQ] Not at all [facility] Start: 09-27-2024 End: 11-08-2024 Sex Female (finding) [facility] NEGATED: Highlighted row [facility] NEGATED: Highlighted row Not [facility] Medical Equipment Procedure Code Equipment Code Equipment Origin al Text Equipment Identifier Dates Patch Xenosure B ovine Pericardial Tissue 8x.8cm Vascular Sterile - [id number] Start: 01-23-2021 Goals Date Patient Goal Desired Activity /State Personal health goal Comment on above: Formatting of this n ote might be different from the original. Avoid worsening condition Personal health goal Comment on above: Formatting of this n ote might be different from the original. Maintain her health Personal health goal Comment on above: Formatting of this n ote might be different from the original. Improved ability to do ADL's due to Lung symptoms and status. Personal health goal Comment on above: Formatting of this n ote might be different from the original. Patient has the following Chronic Kidney Disease goals: Two PCP visits annually Education provided and reviewed with patient - sent on 05/18/23 CKD JAMIR Education - CKD (ALL) Patient will meet these goals by: 05/18/24 (describe interventions done by PCC) Pt's Goal: Maintain Health and function Comment on above: Formatting of this n ote might be different from the original. Avoid worsening condition Comment on above: Formatting of this n ote might be different from the original. Maintain her health Comment on above: Formatting of this n ote might be different from the original. Improved ability to do ADL's due to Lung symptoms and status. Functional Status Date Assessment Result Facility 06-08-2024 Functional status Ambulates;Pancho r;Bathroom Privilege [facility] Work Phone: 11-06-2023 Functional status Ambulates [facility] Work Phone: 10-15-2023 Functional status Ambulates;Up ad jose juan [facility] Work Phone: 10-12-2023 Functional status Well [facility] Work Phone: 10-05-2023 Functional status Ambulates;Chair [facility] Work Phone: 10-02-2023 Functional status Ambulates [facility] Work Phone: 09-30-2023 Functional status Chair [facility] Work Phone: 09-29-2023 Functional status Fair [facility] Work Phone: 09-19-2023 Functional status Ambulates;Bedrest [facility] Work Phone: 09-14-2023 Functional status Bedrest [facility] Work Phone: 09-12-2023 Functional status Ambulates;Chair [facility] Work Phone: 08-20-2023 Functional status Standby Assist [facility] Work Phone: 06-25-2023 Functional status Ambulates;Dangle Feet [facility] Work Phone: 01-24-2021 Are you deaf, or do you have serious difficulty hearing No 01/24/2021 1:09 PM Mickey Clark RN No [facility] 01-24-2021 Are you blind, or do you have serious difficulty seeing, even when wearing glasses No 01/24/2021 1:09 PM Mickey Clark RN No [facility] 01-24-2021 Do you have serious difficulty walking or climbing stairs No 01/24/2021 1:09 PM Mickey Clark, DEVANG No [facility] 01-24-2021 Do you have difficul ty dressing or bathing No 01/24/2021 1:09 PM Mickey Clark RN No [facility] 01-24-2021 Because of a physica l, mental, or emotional condition, do you have difficulty doing errands alone such as visiting a physician's office or shopping No 01/24/2021 1:09 PM Mickey Clark RN No [facility] Mental Status Date Assessment Result Facility 01-11-2025 Cognitive function Awake;Alert;A ppropriate;Fol lows Commands [facility] Work Phone: 01-01-2025 Cognitive function Voice/Name [facility] Work Phone: 09-27-2024 Cognitive function Sedated [facility] Work Phone: 06-08-2024 Cognitive function Voice/Name [facility] Work Phone: 11-06-2023 Cognitive function Voice/Name [facility] Work Phone: 10-15-2023 Cognitive function Voice/Name;Touch/Shaki ng [facility] Work Phone: 10-04-2023 Cognitive function Voice/Name [facility] Work Phone: 10-01-2023 Cognitive function Voice/Name [facility] Work Phone: 09-30-2023 Cognitive function Voice/Name [facility] Work Phone: 09-28-2023 Cognitive function Appropriate;Cooperativ e [facility] Work Phone: 09-18-2023 Cognitive function Voice/Name [facility] Work Phone: 09-16-2023 Cognitive function Voice/Name [facility] Work Phone: 09-14-2023 Cognitive function Awake;Alert;A ppropriate;Fol lows Commands [facility] Work Phone: 09-12-2023 Cognitive function Voice/Name [facility] Work Phone: 08-20-2023 Cognitive function Voice/Name [facility] Work Phone: 07-27-2023 Cognitive function Awake;Alert;A ppropriate;Fol lows Commands [facility] Work Phone: 06-25-2023 Cognitive function Voice/Name [facility] Work Phone: 12-09-2022 Cognitive function Level Of Cons ciousness Awake;Alert;Appropriate;Fol lows Commands [facility] Work Phone: 01-24-2021 Because of a physica l, mental, or emotional condition, do you have serious difficulty concentrating, remembering, or making decisions No 01/24/2021 1:09 PM EDT Mickey Thomson RN No [facility] Clinical Notes 12-11-2014 to 01-11-2025 Note Date & Type Note Facility 01-11-2025 Discharge summary Note Date/Time January 11, 2025 3:05pm [facility] Medical Records Department [address] [place] [address] Emergency Department Summary 01/11/25 MR#: [id number] Acct: [id number] Name: DICK ARTIS Rep #:[id number] : 1935 89 From: Guero Hernandez MD PCP: Dr. Viktoriya Manzo MD Status:ADM I N Location: ICU ICU02-1 HPI History of Present Illness Chief Complaint: Hypotension Informant: patient, family and EMS Narrative Narrative: 89-year-old female presenting with generalized weakness. She has been having black tarry stools recently, occasional diffuse abdominal cramping that is relatively mild but no nausea or vomiting. She takes iron pills. She had a colonoscopy several weeks ago was diagnosed with ischemic colitis, she has been back on her aspirin and clopidogrel since then. She takes those because of a prior TIA. She denies any syncopal episodes, but she is feeling really weak andtired to the point where seventh of occultly getting up. For EMS and around here her blood pressure was in the 70s. Patient alert. She did not have an EGD couple weeks ago. She had a fall subsequently, earlier this week, broke her left wrist and injured her head, she had a negative CT here in the ER followed up with orthopedics Dr. Tarango and had a cast the next day which was placed 3 days ago. She states her wrist is really hurting, she went and saw Dr. Mcmanus with orthopedics yesterday who did not remove the cast saying everything looked okay and had her continue her oxycodone which she has done. She states it stillhurting. She states all her fingers feel a little tingly. [facility] Medical History GI (gastrointestinal bleed) Rash Back pain Cancer Thyroid disease Ambulates with cane History of renal disease TIA (transient ischemic attack) Acute diverticulitis Wears glasses Wears dentures Arthritis Low iron Anemia High cholesterol Migraine headache Restless legs Difficulty chewing History of diverticulitis Heartburn Gastric reflux Former smoker On home oxygen therapy Shortness of breath on exertion Chronic cough History of edema History of echocardiogram History of stress test Cardiology follow-up encounter Hypertension Chronic hypoxic respiratory failure History of diabetes mellitus History of hypertension Diverticulitis History of chronic heart failure History of COPD COPD (chronic obstructive pulmonary disease) Anemia Chronic heart failure with preserved ejection fraction (HFpEF) Hyperlipidemia Right lumbar radiculopathy CKD (chronic kidney disease), stage III Hypertension Chronic kidney disease PAD (peripheral artery disease) Renal cyst History of TIA (transient ischemic attack) Bilateral carotid artery stenosis Claudication RLS (restless legs syndrome) Diverticulosis TIA (transient ischemic attack) Vertigo Leg edema Dyslipidemia Home Medications ?Medication ?Instructions ?Recorded ?Last Taken ?Type atorvastatin 40 mg tablet 40 mg PO QHS cholesterol 01/3011/27/24 History clopidogrel 75 mg tablet 75 mg PO DAILY BLOOD THINNER 02/22/16 12/26/24 History albuterol sulfate 90 mcg/actuation 2 puff inhalation Q 4H PRN 03/16/18 09/27/24 History aerosol inhaler shortness of breath or wheez ing pramipexole 1.5 mg tablet 1.5 mg PO QHS restless leg s yndrome 08/18/23 01/10/25 History polysaccharide iron complex 150 mg 150 mg PO DAILY sup plement 30 days 10/12/23 12/26/24 Rx iron capsule (Ferrex) #30 caps acetaminophen 500 mg tablet 1,000 mg PO Q6H PRN pain 0 02/14/24 01/10/25 History arformoterol 15 mcg/2 mL solution 15 mcg inhalation BI D breathing 02/14/24 01/01/25 History for nebulization spironolactone 25 mg tablet 25 mg PO DAILY diuretic 11/28/24 History cholecalciferol (vitamin D3) 125 125 mcg PO DAILY 30 d ays #30 caps 06/08/24 11/28/24 Rx mcg (5,000 unit) capsule furosemide 40 mg tablet 40 mg PO BID FLUID RETENTION 09/24/24 11/28/24 History pantoprazole 40 mg tablet,delayed 40 mg PO BID reflux 09/24/24 01/01/25 History release budesonide 0.5 mg/2 mL suspension 0.5 mg inhalation BI D breathing 11/28/24 01/10/25 History for nebulization carvedilol 25 mg tablet 25 mg PO BID 11/28/24 History magnesium oxide 400 mg PO DAILY 11/28/24 History potassium chloride 20 mEq/15 mL 20 meq PO DAILY 11/28/24 History oral liquid duloxetine 60 mg capsule,delayed 60 mg PO DAILY 01/01/25 History release oxycodone 5 mg tablet 5 mg PO Q6H PRN pain 3 days #12 01/07/25 01/11/25 Rx tabs Allergy/AdvReac Type Severity Reaction Status Date / Time lisinopril Allergy edema Verified 01/11/25 10:14 aspirin AdvReac Upset Verified 01/11/25 10:14 Stomach Family History Mother Heart disease Surgical History History of thyroid surgery History of carotid angioplasty History of kidney stones History of basal cell carcinoma excision History of total hysterectomy Social History household members: none housing: house Smoking Status: Former smoker how long ago did patient quit smokin years ago alcohol intake: current alcohol intake frequency: holidays/special occasions only details: rare substance use type: does not use caffeine: Yes Type: coffee Number of servings: 1 ROS ROS ED Constitutional Constitutional ED: Reports fatigue and weakness; Denies chills or fever(s) Eyes Eyes: Denies change in vision or diplopia ENT ENT ED: Denies rhinorrhea or sore throat Cardiovascular Cardiovascular: Denies chest pain, palpitations or syncope Respiratory/Chest Respiratory/Chest: Denies cough or dyspnea Gastrointestinal Gastrointestinal: Reports abdominal pain and melena; Denies diarrhea, nausea or vomiting Genitourinary Genitourinary ED: Denies dysuria or hematuria Musculoskeletal Musculoskeletal: Denies back pain or neck pain Integumentary Denies abscess or rash Neurologic Neurologic: Denies headache(s), paresthesias or weakness Psychiatric Psychiatric: Denies suicidal thoughts EXAM Physical Exam Const Vital Signs: 01/11/25 10:16 01/11/25 10:19 01/11/25 10:51 Temperature 98.3 F Temperature Source Oral Pulse Rate 99 92 Respiratory Rate 18 20 H Respiratory Effort Normal Non-Labored Respiratory Pattern Normal Blood Pressure 83/44 L 83/50 L Blood Pressure Mean 57 61 Pulse Ox 95 99 Oxygen Delivery Method Nasal Cannula Nasal Cannula Oxygen Flow Rate (L/min) 2 2 01/11/25 11:20 01/11/25 11:29 01/11/25 14:00 Temperature Temperature Source Pulse Rate 87 92 Respiratory Rate 18 18 Respiratory Effort Respiratory Pattern Blood Pressure 90/43 L 82/69 L Blood Pressure Mean 58 73 Pulse Ox 98 97 98 Oxygen Delivery Method Nasal Cannula Nasal Cannula Room Air Oxygen Flow Rate (L/min) 2 2 Positive well nourished and well developed General Appearance ED: well developed and NAD HEENT Reports moist mucous membranes HEENT Narrative: Raccoon eyes. Small hematoma forehead. No CSF otorhinorrhea. normocephalic and atraumatic Eyes PERRL and EOMs intact bilaterally Neck full ROM and supple Resp normal respiratory effort and clear to auscultation bilaterally Cardio regular rate and regular rhythm GI non-tender and non-distended GI Narrative: Rectal without gross blood or melena or tenderness. Auscultation: normoactive bowel sounds Palpation: soft Back/Spine no CVA tenderness General Back: other FROM Extremity normal to inspection Extremity Narrative: Left wrist casted to mid forearm, there is ecchymosis proximal to this that is nontender, the compartments of the forearm are nice and soft and nondistended. She has brisk cap refill all fingers distally, she can wiggle her fingers without any apparent difficulty, I can get a finger beneath the cast material inher palm and on the dorsal aspect of the proximal portion of the cast at her forearm. General Extremety ED: Negative for edema, pulses abnormal or tenderness General Extremity: Negative for edema or pulses abnormal Neuro oriented x3, CN's II-XII intact bilaterally and no sensory deficits noted Neuro Narrative: No focal neurologic deficits Sensorium / Orientation: awake and alert Motor Exam: general weakness Psych mental status grossly normal Skin no rashes or lesions noted and no wounds Sepsis Attestation Sepsis Attestation: Agree w/Sepsis Date exam was performed: 01/11/25 Time exam was performed: 13:45 Possible Source of Sepsis: Pulmonary and Genitourinary Sepsis Organ Dysfunction Criteria Present: SBP < 90 mmHg or MAP < 65 mmHg, Creatinine > 2.0 mg/dL and Lactic Acid > 2 mmol/L Fluid Resuscitation Fluid resuscitation indicated?: Yes Fluid Resuscitation ordered: 30 ml/kg fluid bolus ordered Sepsis Note Date exam was performed: 01/11/25 Time exam was performed: 14:45 Sepsis Attestation: Sepsis re-evaluation was performed Response to fluids: Fluid responsive hypotension MDM MDM MDM Narrative Medical decision making narrative: Patient in the 70s with regards to her blood pressure for EMS, here 83/44 so shewas given IV fluid bolus and type and screen for blood, had a concern for possible upper GI bleed. Hemoglobin is low at 9.3, but she does not have activebleeding, and her blood pressure responded to IV fluids, before 1.5 L her up, her systolic is 108 and her MAP is over 65. Therefore I do not think she needs an emergent blood transfusion, but her blood count will be tracked. Her troponin is nonspecifically elevated at 64, but her EKG shows no acute injury and she is having no symptoms of angina. This will be monitored as well. Discussed with Dr. Real, he advises that we leave the patient n.p.o. and agreeshe will need an EGD and agrees with the pantoprazole that we gave her. Her lactate is elevated, 3.2. In looking at her white blood count, it is low, with a concerning differential with 24% bands, as well as other immature cells makingme more suspicious of infection. 1 view chest x-ray was performed and on my interpretation shows a right middle lobe infiltrate so I ordered antibiotics. After the second liter is finished her blood pressure went down to the high 80s again, that completes her 30 cc/kg fluid bolus. Therefore I ordered another fluid and had a discussion with the patient and daughter about pressors and CODESTATUS. At this time the patient wants to be a full code and is okay with pressors and intubation if needed. I started her third liter, and a quarter of the way and her blood pressure is now 102/48. She is keenly alert and conversive. We discussed a central line which she was okay with, but hospitalist prefers to have her get a PICC line, so they are calling in the nurses to place that and we are holding off on Levophed and second set of blood cultures antibiotics to be started. Urinalysis still pending. History & Record Review Discussion w/independent historian: Patient and Family Lab Data Attestation: I reviewed the patient's lab results. Labs: Laboratory Results - last 24 hr 01/11/25 01/11/25 11:05 13:15 WBC 2.7 L RBC 2.93 L Hgb 9.3 L Hct 29.0 L MCV 99.0 MCH 31.7 MCHC 32.1 RDW Std Deviation 52.8 H RDW Coeff of Ha 14.5 Plt Count 143 L MPV 10.9 Neut % (Auto) Not Reportable Absolute Neuts (auto) 1.8 L Absolute Lymphs (auto) 0.56 L Total Counted 100 Neutrophils % (Manual) 42 L Band Neutrophils % 24 H Lymphocytes % (Manual) 21 Monocytes % (Manual) 5 Eosinophils % (Manual) 1 Basophils % (Manual) 1 Metamyelocytes % 5 H Myelocytes % 1 H Diff Path Review May foll Platelet Estimate SLT DEC Polychromasia 1+ Sodium 135 Potassium 4.1 Chloride 96 L Carbon Dioxide 21.3 Anion Gap 18 H BUN 74 H Creatinine 3.03 H Estim Creat Clear Calc 11.66 L Est GFR (MDRD) Non-Af 14 L BUN/Creatinine Ratio 24.3 H Glucose 88 Lactic Acid 3.2 H* Calcium 6.6 L Total Bilirubin 0.49 AST 60 H ALT 17 Alkaline Phosphatase 55 Troponin T High Sens 64 H* Troponin T Hi Sens 2 Hr 45 H Total Protein 5.4 L Albumin 2.6 L Globulin 2.8 Albumin/Globulin Ratio 0.9 Blood Type A NEGATIVE Antibody Screen NEGATIVE Radiography Diagnostic Testing: Clinical Impression(s) from Imaging Studies Chest X-Ray 01/11/25 13:20 IMPRESSION: Subtle airspace disease is seen in the right lung base, with differential diagnosis including Atelectasis and Pneumonitis. No pleural effusion or pneumothorax is seen. The cardiomediastinal silhouette is stable, without evidence of cardiomegaly. A tortuous aorta is again noted. No interval osseous change is identified. Reading Location: [place] [address] Rhythm Strip Rhythm Strip: Sinus Rhythm Rate: 90 Ectopy: None EKG Initial EKG: Attestation: I personally reviewed and interpreted this EKG as follows: Interpretation: Sinus Rhythm, No Acute Injury Pattern and RBBB Management Discussion w/another healthcare provider: Hospitalist and Gas Plant Worker (GI) Critical Care Time Critical Care Time: Yes Critical care time (excluding procedures): 30-74 minutes (46 min), Including time spent:, Discussing w/Patient &/or Family/Advertiser, Discussing w/Consultants, Arranging Admission or Transfer and Performing Direct Patient Care at Bedside Discharge Plan Dx/Rx/DC Orders Clinical Impression: ABLA (acute blood loss anemia), UGIB (upper gastrointestinal bleed), Generalized weakness, Elevated troponin, Transient hypotension, Sepsis, Pneumonia Disposition Disposition: [facility] What to do if you have Problems For any increased pain, shortness of breath, bleeding, nausea or vomiting, chestpain, or any unexpected problems, contact your Primary Care Provider. Call [facility] ([phone]) or report to the closest Emergency Room. Call 911 if necessary. 01/11/25 1505 <Electronically signed by Guero Hernandez MD> Cosigner Signature (if applicable): CC: Dr. Viktoriya Manzo MD ~ Signed [facility] Work Phone: [phone] 236-279306-27-2025 Radiology Diagnostic study [facility]06-23-2025 Discharge summary [facility] Medical Records Department [address] [place] [address] Emergency Department Summary 01/07/25 MR#: [id number] Acct: [id number] Name: DICK ARTIS Rep #:[id number] : 1935 89 From: Rafal Herrera MD PCP: Dr. Viktoriya Manzo MD Status:REG E R Location: ED HPI HPI - Fall History of Present Illness Chief Complaint: Fall Narrative Narrative: 89-year-old female past medical history of prior stroke on Plavix presents status post mechanical fall prior to arrival. She relates history that she was coming into the house carrying groceries, when she tripped and fell forward. She struck her head and her face but denies loss of consciousness, no neck pain. She fell onto her left wrist as well. She complains of swelling of her right forehead as well as swelling and pain with movement of her left wrist. She is right-hand dominant. She had to crawl on the floor to get her phone, and she called her daughter who in turn called 911 because she could not get up. [facility] Medical History GI (gastrointestinal bleed) Rash Back pain Cancer Thyroid disease Ambulates with cane History of renal disease TIA (transient ischemic attack) Acute diverticulitis Wears glasses Wears dentures Arthritis Low iron Anemia High cholesterol Migraine headache Restless legs Difficulty chewing History of diverticulitis Heartburn Gastric reflux Former smoker On home oxygen therapy Shortness of breath on exertion Chronic cough History of edema History of echocardiogram History of stress test Cardiology follow-up encounter Hypertension Chronic hypoxic respiratory failure History of diabetes mellitus History of hypertension Diverticulitis History of chronic heart failure History of COPD COPD (chronic obstructive pulmonary disease) Anemia Chronic heart failure with preserved ejection fraction (HFpEF) Hyperlipidemia Right lumbar radiculopathy CKD (chronic kidney disease), stage III Hypertension Chronic kidney disease PAD (peripheral artery disease) Renal cyst History of TIA (transient ischemic attack) Bilateral carotid artery stenosis Claudication RLS (restless legs syndrome) Diverticulosis TIA (transient ischemic attack) Vertigo Leg edema Dyslipidemia Home Medications ?Medication ?Instructions ?Recorded ?Last Taken ?Type atorvastatin 40 mg tablet 40 mg PO QHS cholesterol 01/3011/27/24 History clopidogrel 75 mg tablet 75 mg PO DAILY BLOOD THINNER 02/22/16 12/26/24 History albuterol sulfate 90 mcg/actuation 2 puff inhalation Q 4H PRN 03/16/18 09/27/24 History aerosol inhaler shortness of breath or wheez ing pramipexole 1.5 mg tablet 1.5 mg PO QHS restless leg s yndrome 08/18/23 11/27/24 History polysaccharide iron complex 150 mg 150 mg PO DAILY sup plement 30 days 10/12/23 12/26/24 Rx iron capsule (Ferrex) #30 caps acetaminophen 500 mg tablet 1,000 mg PO Q6H PRN pain 0 02/14/24 Unknown History arformoterol 15 mcg/2 mL solution 15 mcg inhalation BI D breathing 02/14/24 01/01/25 History for nebulization spironolactone 25 mg tablet 25 mg PO DAILY diuretic 11/28/24 History cholecalciferol (vitamin D3) 125 125 mcg PO DAILY 30 d ays #30 caps 06/08/24 11/28/24 Rx mcg (5,000 unit) capsule furosemide 40 mg tablet 40 mg PO BID FLUID RETENTION 09/24/24 11/28/24 History pantoprazole 40 mg tablet,delayed 40 mg PO BID reflux 09/24/24 01/01/25 History release budesonide 0.5 mg/2 mL suspension 0.5 mg inhalation BI D breathing 11/28/24 01/01/25 History for nebulization carvedilol 25 mg tablet 25 mg PO BID 11/28/24 History magnesium oxide 400 mg PO DAILY 11/28/24 History potassium chloride 20 mEq/15 mL 20 meq PO DAILY 11/28/24 History oral liquid cetirizine 10 mg tablet (24Hour 10 mg PO DAILY 5 Unknown History Allergy) dicyclomine 10 mg capsule 10 mg PO BID #20 caps Unknown Rx peg 3350-electrolytes 236 240 ml PO Q10M #4,000 mL 10/09 Unknown Rx gram-22.74 gram-6.74 gram-5.86 gram solution (Golytely) duloxetine 60 mg capsule,delayed 60 mg PO DAILY 01/01/25 History release oxycodone 5 mg tablet 5 mg PO Q6H PRN pain 3 days #12 01/07/25 Unknown Rx tabs Allergy/AdvReac Type Severity Reaction Status Date / Time lisinopril Allergy edema Verified 12/27/24 15:21 aspirin AdvReac Upset Verified 12/27/24 15:21 Stomach Family History Mother Heart disease Surgical History History of thyroid surgery History of carotid angioplasty History of kidney stones History of basal cell carcinoma excision History of total hysterectomy Social History household members: none housing: house Smoking Status: Former smoker how long ago did patient quit smokin years ago alcohol intake: current alcohol intake frequency: holidays/special occasions only details: rare substance use type: does not use caffeine: Yes Type: coffee Number of servings: 1 ROS ROS ED ROS Narrative Review of systems positive for hematoma right forehead, pain and swelling of left wrist. Positive abrasions to bridge of nose. Denies other injuries. Ehxis-hkvz-ylhqqvlx. No loss of consciousness or neck pain. EXAM Physical Exam Narrative Exam Narrative: GCS 15. ABCs are intact. Right forehead shows moderately sized hematoma. No nasal septal hematoma. Positive abrasions on bridge of nose without active bleeding. No nasal septal hematoma. PERRL EOMI. Full range of motion of neck without pain. No vertebral point tenderness or bony step-off. Cardiovascular examination regular rate and rhythm. Lungs are clear to auscultation bilaterally. Abdomen is soft and nontender with normoactive bowel sounds, no guarding or rebound. Neurological examination nonfocal, nonlateralizing. Able to raise arms above head without difficulty. Musculoskeletal examination shows tenderness to palpation and swelling diffusely at base of left thumb and diffusely throughout left wrist. Const Vital Signs: 01/07/25 15:25 01/07/25 15:29 01/07/25 16:25 Temperature 97.8 F Temperature Source Oral Pulse Rate 102 H 89 Respiratory Rate 18 16 Respiratory Effort Normal Non-Labored Respiratory Depth Normal Respiratory Pattern Normal Blood Pressure 111/76 109/67 Blood Pressure Mean 87 81 Pulse Ox 95 98 Oxygen Delivery Method Room Air Room Air Room Air 01/07/25 17:00 01/07/25 18:00 Temperature Temperature Source Pulse Rate 91 89 Respiratory Rate 18 18 Respiratory Effort Respiratory Depth Respiratory Pattern Blood Pressure 120/57 L 120/57 L Blood Pressure Mean 78 78 Pulse Ox 98 98 Oxygen Delivery Method Room Air Room Air MDM MDM MDM Narrative Medical decision making narrative: Differential diagnosis includes but not limited to closed head injury versus intracranial hemorrhage versus skull fracture versus left wrist sprain versus fracture. As the patient is on Plavix, CT imaging of the brain will be obtainedto help rule out subarachnoid hemorrhage or intraparenchymal hemorrhage versus subdural. X-rays obtained of the left wrist and interpreted by myself independently. On my independent interpretation of the left wrist x-ray there is a mildly displaced fracture of the left distal radius, comminuted, does not appear to be intra-articular. I reviewed the radiology report which confirms my independent interpretation. I reviewed the radiology report of the CT of the brain as well and there is no acute intracranial process, but she does have a moderately sizedright forehead hematoma. At this point in time, I discussed hematoma block versus procedural sedation forclosed reduction ofher left wrist. She declined both hematoma block and procedural sedation. She was given oxycodone for analgesia. I discussed the patient with Dr. Tarango and informed him of her hesitancy of having hematoma block and procedural sedation for reduction performed. She was placed in an AP splint with molding of the splint. She was written a prescription for oxycodoneand will continue Tylenol as well.She will follow-up with orthopedics, Dr. Tarango. Return instructions to the emergency department were reviewed. Disposition is discharged home in stable condition. Additionally, given the abrasions on her nasal bridge, I reviewed her prior records and her last Tdap was in 2012, greater than 10 years ago. She was administered immunization update here. Disposition is discharged home in stable condition. History & Record Review Discussion w/independent historian: Patient and Family Radiography Diagnostic Testing: Clinical Impression(s) from Imaging Studies Brain CT 01/07/25 16:03 IMPRESSION: No acute intracranial process. Moderate right anterior scalp hematoma. No acutecalvarial defect. Right temporal sulcal hyperdensity (series 2, image 16) likely volume averaging artifact from skullbase. Reading Location: [id number] Wrist X-Ray 01/07/25 16:08 IMPRESSION: Mildly displaced fracture of the left distal radius. Reading Location: [id number] Management Discussion w/another healthcare provider: Gas Plant Worker (Dr. Tarango, orthopedics) Discharge Plan Triage Chief Complaint: Fall ED Provider: Rafal Herrera Dx/Rx/DC Orders Clinical Impression: Fall, Closed fracture of distal end of radius, Abrasion, Traumatic hematoma of forehead, Closed head injury Instructions: ED Abrasion, ED Head Injury (Adult), ED Hematoma, ED Fracture, Wrist, General Prescriptions: New oxycodone 5 mg tablet 5 mg PO Q6H PRN (Reason: pain) 3 Days Qty: 12 0RF No Action acetaminophen 500 mg tablet 1,000 mg PO Q6H PRN (Reason: pain) arformoterol 15 mcg/2 mL solution for nebulization 15 mcg inhalation BID spironolactone 25 mg tablet 25 mg PO DAILY dicyclomine 10 mg capsule 10 mg PO BID Qty: 20 1RF peg 3350-electrolytes [Golytely] 236-22.74-6.74 -5.86 gram recon soln 240 ml PO Q10M Qty: 4000 0RF Rx Instructions: until fecal effluent is clear atorvastatin 40 MG tablet 40 mg PO QHS clopidogrel 75 MG tablet 75 mg PO DAILY albuterol sulfate 90 mcg/actuation HFA aerosol inhaler 2 puff INHALATION Q4H PRN (Reason: shortness of breath or wheezing) pramipexole 1.5 mg tablet 1.5 mg PO QHS cholecalciferol (vitamin D3) 125 mcg (5,000 unit) Capsule 125 mcg PO DAILY 30 Days Qty: 30 0RF carvedilol 25 mg tablet 25 mg PO BID magnesium oxide 400 mg magnesium capsule 400 mg PO DAILY potassium chloride 20 mEq/15 mL liquid 20 meq PO DAILY budesonide 0.5 mg/2 mL suspension for nebulization 0.5 mg inhalation BID duloxetine 60 mg capsule,delayed release(DR/EC) 60 mg PO DAILY polysaccharide iron complex [Ferrex 150] 150 mg iron Capsule 150 mg PO DAILY 30 Days Qty: 30 0RF furosemide 40 mg tablet 40 mg PO BID pantoprazole 40 mg Tablet,Delayed Release (Dr/Ec) 40 mg PO BID cetirizine [24Hour Allergy] 10 mg tablet 10 mg PO DAILY Primary Care Provider: Viktoriya Manzo Referrals: Viktoriya Manzo MD [Primary Care Provider] - Jose Tarango DO [Med Staff - Active Staff] - 5-7 Days Activity Restrictions/Additional Instructions: Follow-up with orthopedics within the next few days. Call for an appointment. Continue ice and elevation of your left wrist when possible. Oxycodone as needed for breakthrough pain. You can continue Tylenol as needed for pain as well. Return with new or worsening symptoms. Print Language: Greenlandic Disposition Disposition: Home, Self Care What to do if you have Problems For any increased pain, shortness of breath, bleeding, nausea or vomiting, chestpain, or any unexpected problems, contact your Primary Care Provider. Call [facility] ([phone]) or report tothe closest Emergency Room. Call 911 if necessary. 01/07/25 1829 Cosigner Signature (if applicable): CC: Dr. Viktoriya Manzo MD ~ Signed [facility]06-23-2025 Radiology Diagnostic study note [facility] Imaging Services [address] [place] [address] Wrist min 3 Views MR#: [id number] Acct: [id number] Name: DICK ARTIS Rep #: [id number] : 1935 F 89 From: Seda Ware MD PCP: Dr. Viktoriya Manzo MD Status: REG E R Study:Wrist min 3 Views Date of Exam: Exam# [id number] Ordering Dr: Rafal Herrera MD PROCEDURE: WRIST MIN 3 VIEWS 01/07/2025 REASON FOR EXAM: TRAUMA TECHNIQUE: WRIST MIN 3 VIEWS COMPARISON: None FINDINGS: There is a slightly comminuted fracture of the distal radius with mild apex volar angulation, without definite intra-articular extension. There is surrounding soft tissue swelling. No displaced fracture ofthe distal ulna. Punctate calcifications near the ulnar styloid may represent sequela of calcific pyrophosphate deposition disease. Degenerative changes at the 1st carpometacarpal and triscaphe joints. RAD/Wrist min 3 Views IMPRESSION: Mildly displaced fracture of the left distal radius. Reading Location: [facility] CC: Dr. Rafal Herrera MD; Dr. Viktoriya Manzo MD ~ 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: Signed [facility]06-23-2025 Radiology Diagnostic study note [facility] Imaging Services [address] [place] [address] Brain/Head without Contrast MR#: [id number] Acct: [id number] Name: DICK ARTIS Rep #: [id number] : 1935 F 89 From: Isa Salter MD PCP: Dr. Viktoriya Manzo MD Status: REG E R Study:Brain/Head without Contrast Date of Exa m: 01/07/25 Exam# [id number] Ordering Dr: Rafal Herrera MD PROCEDURE: BRAIN/HEAD WITHOUT CONTRAST 01/07/2025 REASON FOR EXAM: HEAD INJURY ON ANTICOAGULATION TECHNIQUE: BRAIN/HEAD WITHOUT CONTRAST Coronal and Sagittal reconstruction series were provided. One or more dose reduction techniques were used (e.g., Automated exposure control, adjustment of the mA and/or kV according to patient size, use of iterative reconstruction technique. RADIATION DOSE SUMMARY: DLP: 813 mGycm COMPARISON: 06/06/2024 FINDINGS: Right temporal sulcal hyperdensity (series 2, image 16) likely volume averaging artifact from skullbase. There is no acute infarct, intracranial hemorrhage, or mass effect. There is no hydrocephalus or significant midline shift. There is aooq-yy-wjxsyucs chronic microvascular ischemic changes and nupx-hp-qowheoad parenchymal volume loss. No acute, depressed calvarial fractures. Moderate right anterior scalp hematoma. CT/Brain/Head without Contrast IMPRESSION: No acute intracranial process. Moderate right anterior scalp hematoma. No acutecalvarial defect. Right temporal sulcal hyperdensity (series 2, image 16) likely volume averaging artifact from skullbase. Reading Location: [facility] CC: Dr. Rafal Herrera MD; Dr. Viktoriya Manzo MD ~ 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: Signed [facility]06-23-2025 Discharge summary Author Rafal Herrera [facility] Note Date/Time January 07, 2025 6:29 pm [facility] Medical Records Department [address] [place] [address] Emergency Department Summary 01/07/25 MR#: [id number] Acct: [id number] Name: DICK ARTIS Rep #:[id number] : 1935 89 From: Rafal Herrera MD PCP: Dr. Vikotriya Manzo MD Status:REG E R Location: ED HPI HPI - Fall History of Present Illness Chief Complaint: Fall Narrative Narrative: 89-year-old female past medical history of prior stroke on Plavix presents status post mechanical fall prior to arrival. She relates history that she was coming into the house carrying groceries, when she tripped and fell forward. She struck her head and her face but denies loss of consciousness, no neck pain. She fell onto her left wrist as well. She complains of swelling of her right forehead as well as swelling and pain with movement of her left wrist. She is right-hand dominant. She had to crawl on the floor to get her phone, and she called her daughter who in turn called 911 because she could not get up. [facility] Medical History GI (gastrointestinal bleed) Rash Back pain Cancer Thyroid disease Ambulates with cane History of renal disease TIA (transient ischemic attack) Acute diverticulitis Wears glasses Wears dentures Arthritis Low iron Anemia High cholesterol Migraine headache Restless legs Difficulty chewing History of diverticulitis Heartburn Gastric reflux Former smoker On home oxygen therapy Shortness of breath on exertion Chronic cough History of edema History of echocardiogram History of stress test Cardiology follow-up encounter Hypertension Chronic hypoxic respiratory failure History of diabetes mellitus History of hypertension Diverticulitis History of chronic heart failure History of COPD COPD (chronic obstructive pulmonary disease) Anemia Chronic heart failure with preserved ejection fraction (HFpEF) Hyperlipidemia Right lumbar radiculopathy CKD (chronic kidney disease), stage III Hypertension Chronic kidney disease PAD (peripheral artery disease) Renal cyst History of TIA (transient ischemic attack) Bilateral carotid artery stenosis Claudication RLS (restless legs syndrome) Diverticulosis TIA (transient ischemic attack) Vertigo Leg edema Dyslipidemia Home Medications ?Medication ?Instructions ?Recorded ?Last Taken ?Type atorvastatin 40 mg tablet 40 mg PO QHS cholesterol 01/3011/27/24 History clopidogrel 75 mg tablet 75 mg PO DAILY BLOOD THINNER 02/22/16 12/26/24 History albuterol sulfate 90 mcg/actuation 2 puff inhalation Q 4H PRN 03/16/18 09/27/24 History aerosol inhaler shortness of breath or wheez ing pramipexole 1.5 mg tablet 1.5 mg PO QHS restless leg s yndrome 08/18/23 11/27/24 History polysaccharide iron complex 150 mg 150 mg PO DAILY sup plement 30 days 10/12/23 12/26/24 Rx iron capsule (Ferrex) #30 caps acetaminophen 500 mg tablet 1,000 mg PO Q6H PRN pain 0 02/14/24 Unknown History arformoterol 15 mcg/2 mL solution 15 mcg inhalation BI D breathing 02/14/24 01/01/25 History for nebulization spironolactone 25 mg tablet 25 mg PO DAILY diuretic 11/28/24 History cholecalciferol (vitamin D3) 125 125 mcg PO DAILY 30 d ays #30 caps 06/08/24 11/28/24 Rx mcg (5,000 unit) capsule furosemide 40 mg tablet 40 mg PO BID FLUID RETENTION 09/24/24 11/28/24 History pantoprazole 40 mg tablet,delayed 40 mg PO BID reflux 09/24/24 01/01/25 History release budesonide 0.5 mg/2 mL suspension 0.5 mg inhalation BI D breathing 11/28/24 01/01/25 History for nebulization carvedilol 25 mg tablet 25 mg PO BID 11/28/24 History magnesium oxide 400 mg PO DAILY 11/28/24 History potassium chloride 20 mEq/15 mL 20 meq PO DAILY 11/28/24 History oral liquid cetirizine 10 mg tablet (24Hour 10 mg PO DAILY 5 Unknown History Allergy) dicyclomine 10 mg capsule 10 mg PO BID #20 caps Unknown Rx peg 3350-electrolytes 236 240 ml PO Q10M #4,000 mL 10/09 Unknown Rx gram-22.74 gram-6.74 gram-5.86 gram solution (Golytely) duloxetine 60 mg capsule,delayed 60 mg PO DAILY 01/01/25 History release oxycodone 5 mg tablet 5 mg PO Q6H PRN pain 3 days #12 01/07/25 Unknown Rx tabs Allergy/AdvReac Type Severity Reaction Status Date / Time lisinopril Allergy edema Verified 12/27/24 15:21 aspirin AdvReac Upset Verified 12/27/24 15:21 Stomach Family History Mother Heart disease Surgical History History of thyroid surgery History of carotid angioplasty History of kidney stones History of basal cell carcinoma excision History of total hysterectomy Social History household members: none housing: house Smoking Status: Former smoker how long ago did patient quit smokin years ago alcohol intake: current alcohol intake frequency: holidays/special occasions only details: rare substance use type: does not use caffeine: Yes Type: coffee Number of servings: 1 ROS ROS ED ROS Narrative Review of systems positive for hematoma right forehead, pain and swelling of left wrist. Positive abrasions to bridge of nose. Denies other injuries. [id number]. No loss of consciousness or neck pain. EXAM Physical Exam Narrative Exam Narrative: GCS 15. ABCs are intact. Right forehead shows moderately sized hematoma. No nasal septal hematoma. Positive abrasions on bridge of nose without active bleeding. No nasal septal hematoma. PERRL EOMI. Full range of motion of neck without pain. No vertebral point tenderness or bony step-off. Cardiovascular examination regular rate and rhythm. Lungs are clear to auscultation bilaterally. Abdomen is soft and nontender with normoactive bowel sounds, no guarding or rebound. Neurological examination nonfocal, nonlateralizing. Able to raise arms above head without difficulty. Musculoskeletal examination shows tenderness to palpation and swelling diffusely at base of left thumb and diffusely throughout left wrist. Const Vital Signs: 01/07/25 15:25 01/07/25 15:29 01/07/25 16:25 Temperature 97.8 F Temperature Source Oral Pulse Rate 102 H 89 Respiratory Rate 18 16 Respiratory Effort Normal Non-Labored Respiratory Depth Normal Respiratory Pattern Normal Blood Pressure 111/76 109/67 Blood Pressure Mean 87 81 Pulse Ox 95 98 Oxygen Delivery Method Room Air Room Air Room Air 01/07/25 17:00 01/07/25 18:00 Temperature Temperature Source Pulse Rate 91 89 Respiratory Rate 18 18 Respiratory Effort Respiratory Depth Respiratory Pattern Blood Pressure 120/57 L 120/57 L Blood Pressure Mean 78 78 Pulse Ox 98 98 Oxygen Delivery Method Room Air Room Air MDM MDM MDM Narrative Medical decision making narrative: Differential diagnosis includes but not limited to closed head injury versus intracranial hemorrhage versus skull fracture versus left wrist sprain versus fracture. As the patient is on Plavix, CT imaging of the brain will be obtainedto help rule out subarachnoid hemorrhage or intraparenchymal hemorrhage versus subdural. X-rays obtained of the left wrist and interpreted by myself independently. On my independent interpretation of the left wrist x-ray there is a mildly displaced fracture of the left distal radius, comminuted, does not appear to be intra-articular. I reviewed the radiology report which confirms my independent interpretation. I reviewed the radiology report of the CT of the brain as well and there is no acute intracranial process, but she does have a moderately sizedright forehead hematoma. At this point in time, I discussed hematoma block versus procedural sedation forclosed reduction of her left wrist. She declined both hematoma block and procedural sedation. She was given oxycodone for analgesia. I discussed the patient with Dr. Tarango and informed him of her hesitancy of having hematoma block and procedural sedation for reduction performed. She was placed in an AP splint with molding of the splint. She was written a prescription for oxycodoneand will continue Tylenol as well. She will follow-up with orthopedics, Dr. Tarango. Return instructions to the emergency department were reviewed. Disposition is discharged home in stable condition. Additionally, given the abrasions on her nasal bridge, I reviewed her prior records and her last Tdap was in 2012, greater than 10 years ago. She was administered immunization update here. Disposition is discharged home in stable condition. History & Record Review Discussion w/independent historian: Patient and Family Radiography Diagnostic Testing: Clinical Impression(s) from Imaging Studies Brain CT 01/07/25 16:03 IMPRESSION: No acute intracranial process. Moderate right anterior scalp hematoma. No acutecalvarial defect. Right temporal sulcal hyperdensity (series 2, image 16) likely volume averaging artifact from skull base. Reading Location: [facility] W[facility] X-Ray 01/07/25 16:08 IMPRESSION: Mildly displaced fracture of the left distal radius. Reading Location: [facility] Management Discussion w/another healthcare provider: [employer] (Dr. Tarango, orthopedics) Discharge Plan Triage Chief Complaint: Fall ED Provider: Rafal Herrera Dx/Rx/DC Orders Clinical Impression: Fall, Closed fracture of distal end of radius, Abrasion, Traumatic hematoma of forehead, Closed head injury Instructions: ED Abrasion, ED Head Injury (Adult), ED Hematoma, ED Fracture, Wrist, General Prescriptions: New oxycodone 5 mg tablet 5 mg PO Q6H PRN (Reason: pain) 3 Days Qty: 12 0RF No Action acetaminophen 500 mg tablet 1,000 mg PO Q6H PRN (Reason: pain) arformoterol 15 mcg/2 mL solution for nebulization 15 mcg inhalation BID spironolactone 25 mg tablet 25 mg PO DAILY dicyclomine 10 mg capsule 10 mg PO BID Qty: 20 1RF peg 3350-electrolytes [Golytely] 236-22.74-6.74 -5.86 gram recon soln 240 ml PO Q10M Qty: 4000 0RF Rx Instructions: until fecal effluent is clear atorvastatin 40 MG tablet 40 mg PO QHS clopidogrel 75 MG tablet 75 mg PO DAILY albuterol sulfate 90 mcg/actuation HFA aerosol inhaler 2 puff INHALATION Q4H PRN (Reason: shortness of breath or wheezing) pramipexole 1.5 mg tablet 1.5 mg PO QHS cholecalciferol (vitamin D3) 125 mcg (5,000 unit) Capsule 125 mcg PO DAILY 30 Days Qty: 30 0RF carvedilol 25 mg tablet 25 mg PO BID magnesium oxide 400 mg magnesium capsule 400 mg PO DAILY potassium chloride 20 mEq/15 mL liquid 20 meq PO DAILY budesonide 0.5 mg/2 mL suspension for nebulization 0.5 mg inhalation BID duloxetine 60 mg capsule,delayed release(DR/EC) 60 mg PO DAILY polysaccharide iron complex [Ferrex 150] 150 mg iron Capsule 150 mg PO DAILY 30 Days Qty: 30 0RF furosemide 40 mg tablet 40 mg PO BID pantoprazole 40 mg Tablet,Delayed Release (Dr/Ec) 40 mg PO BID cetirizine [24Hour Allergy] 10 mg tablet 10 mg PO DAILY Primary Care Provider: Viktoriya Manzo Referrals: Viktoriya Manzo MD [Primary Care Provider] - Jose Tarango DO [Med Staff - Active Staff] - 5-7 Days Activity Restrictions/Additional Instructions: Follow-up with orthopedics within the next few days. Call for an appointment. Continue ice and elevation of your left wrist when possible. Oxycodone as needed for breakthrough pain. You can continue Tylenol as needed for pain as well. Return with new or worsening symptoms. Print Language: Greenlandic Disposition Disposition: Home, Self Care What to do if you have Problems For any increased pain, shortness of breath, bleeding, nausea or vomiting, chestpain, or any unexpected problems, contact your Primary Care Provider. Call [facility] ([phone]) or report to the closest Emergency Room. Call 911 if necessary. 01/07/251828 <Electronically signed by Rafal Herrera MD> Cosigner Signature (if applicable): CC: Dr. Viktoriya Manzo MD ~ Signed [facility] Work Phone: [phone]) 179-534606-23-2025 NoteHNO ID: [id number] Author: VIKTORIYA MANZO MD Service: ? Author Type: Physician Type: Progress Notes Filed: 01/07/2025 12:45 Note Text: Reason for Visit Follow up HPI Emerson Artis is a 89-year-old female, with a history of achalasia cardia, esophagitis, and anemia, presenting for follow-up after recent hospitalizations and procedures. Emerson has had multiple recent hospitalizations for bleeding and was diagnosed with achalasia cardia by Dr. Addie Denson. She underwent a colonoscopy on the , which revealed multiple small diverticula in the rectosigmoid colon, sigmoid colon, and descending colon, as well as two polyps (one in the rectosigmoid and one in the transverse colon). Large grade 3 hemorrhoids were also noted, but were not believed to be the source of bleeding. An area of inflammation was observed in the rectosigmoid, and a 3 mm fissure was found in the anal canal. Emerson reports no issues with hemorrhoids during bowel movements. Emerson also underwent an upper endoscopy, which revealed grade D esophagitis, achalasia cardia, a small hiatal hernia, and duodenal polyps. She received a Botox injection for esophageal spasms and reports significant improvement in her ability to eat. She is awaiting pathology results for the polyps. Since the colonoscopy, Emerson reports changes in bowel movements, describing them as stringy and noting episodes of incontinence. She was treated for C. difficile with antibiotics for a week prior to the colonoscopy and denies current diarrhea, but continues to experience stringy stools. Emerson also reports recent episodes of significant lower extremity edema, particularly in the left foot, which has since improved. She has been monitoring her diet and wearing compression socks during the day, which she believes has helped reduce the swelling. She inquires about the use of compression socks at night. Emerson is currently taking iron and magnesium supplements, but reports that her insurance, [employer], will no longer cover these medications. She inquires about the necessity of continuing these supplements and whether they are available over the counter. She has a history of anemia and was found to have low magnesium levels. Emerson lives independently, with her daughter visiting nightly to assist with medication management. She reports a recent episode of dizziness, which she attributes to a medication she has since discontinued. Social History Tobacco Use Smoking status: Former Current packs/day: 0.00 Average packs/day: 1 pack/day for 53.1 years (53.1 ttl pk-yrs) Types: Cigarettes Start date: 08/11/1961 Quit date: 10/04/2016 Years since quittin.2 Smokeless tobacco: Never Tobacco comments: 10-20 year period in 30-40s when quit. Vaping Use Vaping status: Never Used Substance Use Topics Alcohol use: Not Currently Comment: very seldom Drug use: Never Past medical history, appointments, medications, allergies reviewed. Pertinent Lab/Diagnostic Studies are reviewed and discussed today Current Outpatient Medications: albuterol HFA (VENTOLIN HFA) 90 mcg/actuation inhaler potassium chloride 20 mEq/15 mL solution cholecalciferol, vitamin D3, (VITAMIN D3 ORAL) iron polysaccharide complex (FERREX-150) 150 mg iron capsule DULoxetine (CYMBALTA) 60 mg capsule clopidogrel (PLAVIX) 75 mg tablet atorvastatin (LIPITOR) 40 mg tablet arformoterol (BROVANA) 15 mcg/2 mL nebulizer solution budesonide (PULMICORT) 0.5 mg/2 mL nebulizer solution carvedilol (COREG) 25 mg tablet furosemide (LASIX) [address] (PROTONIX) 40 mg tablet pramipexole (MIRAPEX) 1.5 mg tablet spironolactone (ALDACTONE) 25 mg tablet magnesium oxide (MAG-OX) 400 mg (241.3 mg magnesium) tablet OXYGEN, HOME THERAPY, acetaminophen (TYLENOL) 500 mg tablet ciprofloxacin HCl (CIPRO) 500 mg tablet metroNIDAZOLE (FLAGYL) 500 mg tablet Health Maintenance Shingrix Vaccine(1 of 2) DTaP,Tdap,Td Vaccine(2 - Td or Tdap) Covid-19 Vaccine( season) Advance Directive Discussion Medicare Advantage Annual Wellness Visit Urine Albumin:Creatinine Ratio Anxiety Screening HbA1C@ Review Of Systems Cardiovascular: (+) left foot swelling Gastrointestinal: (+) narrow stools, (+) fecal incontinence, (-) diarrhea, (-) hemorrhoidal discomfort Physical Exam BP 126/56 Pulse 92 Resp 18 Wt 61.5 kg (135 lb 9.6 oz) SpO2 93% BMI 24.80 kg/m? GENERAL: NAD, alert and oriented SKIN: unremarkable, no rash or skin lesions. HEAD: normocephalic EYES: PERRLA, EOMI, conjunctiva clear EARS: external ears normal, canals clear, TM's normal. LUNGS: Clear to auscultation bilaterally, no wheezes/rhonchi/rales. HEART: Regular rate and rhythm, no murmurs. No ectopy. EXTREMITIES: No deformities, No skin discoloration, No edema. NEURO: Awake, alert and oriented x3, cranial nerves II-XII grossly intact, normal gait, no involuntary motions Labs: (more content not included)...[facility]06-23-2025 History of Present illness Narrative* Viktoriya Manzo MD - 01/07/2025 12:41 PM EDT Reason for Visit Follow up HPI Emerson Artis is a 89-year-old female, with a history of achalasia cardia, esophagitis, and anemia, presenting for follow-up after recent hospitalizations and procedures. Emerson has had multiple recent hospitalizations for bleeding and was diagnosed with achalasia cardia by Dr. Addie Denson. She underwent a colonoscopy on the , which revealed multiple small diverticula in the rectosigmoid colon, sigmoid colon, and descending colon, as well as two polyps (one in the rectosigmoid and one in the transverse colon). Large grade 3 hemorrhoids were also noted, but were not believed to be the source of bleeding. An area of inflammation was observed in the rectosigmoid, and a 3 mm fissure was found in the anal canal. Emerson reports no issues with hemorrhoids during bowel movements. Emerson also underwent an upper endoscopy, which revealed grade D esophagitis, achalasia cardia, a small hiatal hernia, and duodenal polyps. She received a Botox injection for esophageal spasms and reports significant improvement in her ability to eat. She is awaiting pathology results for the polyps. Since the colonoscopy, Emerson reports changes in bowel movements, describing them as stringy and noting episodes of incontinence. She was treated for C. difficile with antibiotics for a week prior to the colonoscopy and denies current diarrhea, but continues to experience stringy stools. Emerson also reports recent episodes of significant lower extremity edema, particularly in the left foot, which has since improved. She has been monitoring her diet and wearing compression socks during the day, which she believes has helped reduce the swelling. She inquires about the use of compressionsocks at night. Emerson is currently taking iron and magnesium supplements, but reports that her insurance, [employer], will no longer cover these medications. She inquires about the necessity of continuing these supplements and whether they are available over the counter. She has a history of anemia and was found to have low magnesium levels. Emerson lives independently, with her daughter visiting nightly to assist with medication management. She reports a recent episode of dizziness, which she attributes to a medication she has since discontinued. Social History Tobacco Use Smoking status: Former Current packs/day: 0.00 Average packs/day: 1 pack/day for 53.1 years (53.1 ttl pk-yrs) Types: Cigarettes Start date: 08/11/1961 Quit date: 10/04/2016 Years since quittin.2 Smokeless tobacco: Never Tobacco comments: 10-20 year period in 30-40s when quit. Vaping Use Vaping status: Never Used Substance Use Topics Alcohol use: Not Currently Comment: very seldom Drug use: Never Past medical history, appointments, medications, allergies reviewed. Pertinent Lab/Diagnostic Studies are reviewed and discussed today Current Outpatient Medications: albuterol HFA (VENTOLIN HFA) 90 mcg/actuation inhaler potassium chloride 20 mEq/15 mL solution cholecalciferol, vitamin D3, (VITAMIN D3 ORAL) iron polysaccharide complex (FERREX-150) 150 mg iron capsule DULoxetine (CYMBALTA) 60 mg capsule clopidogrel (PLAVIX) 75 mg tablet atorvastatin (LIPITOR) 40 mg tablet arformoterol (BROVANA) 15 mcg/2 mL nebulizer solution budesonide (PULMICORT) 0.5 mg/2 mL nebulizer solution carvedilol (COREG) 25 mg tablet furosemide (LASIX) [address] (PROTONIX) 40 mg tablet pramipexole (MIRAPEX) 1.5 mg tablet spironolactone (ALDACTONE) 25 mg tablet magnesium oxide (MAG-OX) 400 mg (241.3 mg magnesium) tablet OXYGEN, HOME THERAPY, acetaminophen (TYLENOL) 500 mg tablet ciprofloxacin HCl (CIPRO) 500 mg tablet metroNIDAZOLE (FLAGYL) 500 mg tablet Health Maintenance Shingrix Vaccine(1 of 2) DTaP,Tdap,Td Vaccine(2 - Td or Tdap) Covid-19 Vaccine( season) Advance Directive Discussion Medicare Advantage Annual Wellness Visit Urine Albumin:Creatinine Ratio Anxiety Screening HbA1C@ Review Of Systems Cardiovascular: (+) left foot swelling Gastrointestinal: (+) narrow stools, (+) fecal incontinence, (-) diarrhea, (-) hemorrhoidal discomfort Physical Exam BP 126/56 Pulse 92 Resp 18 Wt 61.5 kg (135 lb 9.6 oz) SpO2 93% BMI 24.80 kg/m GENERAL: NAD, alert and oriented SKIN: unremarkable, no rash or skin lesions. HEAD: normocephalic EYES: PERRLA, EOMI, conjunctiva clear EARS: external ears normal, canals clear, TM's normal. LUNGS: Clear to auscultation bilaterally, no wheezes/rhonchi/rales. HEART: Regular rate and rhythm, no murmurs. No ectopy. EXTREMITIES: No deformities, No skin discoloration, No edema. NEURO: Awake, alert and oriented x3, cranial nerves II-XII grossly intact, normal gait, no involuntary motions Labs: - Hemoglobin: Decreased (anemia) - Magnesium: Decreased Tests: Colonoscopy: - Multiple small diverticula in the rectosigmoid, sigmoid, and descending colon - Polyp in the rectosigmoid - Polyp in the transverse colon - Large grade 3 hemorrhoids - Inflamed rectosigmoid area - Anal canal fissure measuring 3 mm Upper Endoscopy: - Esophagitis grade D - Achalasia cardia - Small hiatal hernia - Duodenal polyps (submitted for pathology) - Botox injection administered for spasmodic region Assessment and Plan 1. Hospital discharge follow-up (Z09) Recent hospitalizations for bleeding. Discharged after colonoscopy and endoscopy performed by Dr. Addie Denson. - Discussed findings from recent procedures. - Advised patient to follow up with Dr. Addie Denson to discuss current symptoms and obtain pathology reports. 2. 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 Addie Denson. Patient received Botox injection, resulting in improved dysphagia. - Continue monitoring symptoms. - Follow up with Dr. Addie Denson for further management. 3. Esophagitis, [place] grade D (K20.80) Diagnosed during recent endoscopy by Dr. Addie Denson. - Follow up with Dr. Addie Denson for treatment plan. 4. Diverticulosis of colon without hemorrhage (K57.30) Multiple small diverticula observed in the rectosigmoid, sigmoid, and descending colon during colonoscopy. - No further colonoscopies required per Dr. Addie Denson. 5. Anal fissure (K60.2) 3 mm fissure identified in the anal canal during colonoscopy. - Monitor for symptoms. 6. Anemia, unspecified type (D64.9) Patient is currently taking iron supplements. - Continue iron supplementation for 3 to 6 months. - Advised patient that iron supplements are available over the counter. 7. Magnesium deficiency (E61.2) Patient is currently taking magnesium supplements. - Continue magnesium supplementation. - Advised patient that magnesium supplements are available over the counter. Voice recognition software was used to compose this office note. Please excuse any unintended typographical errors. Recording using [employer] software for draft documentation of the visit was discussed with the patient/authorized industrial relations representative; all questions welcomed and answered. Patient/authorized industrial relations representative agreed to proceed Viktoriya Manzo MD [facility] Instructions* Patient Instructions* Viktoriya Manzo MD - 01/07/2025 11:58 AM EDT We discussed your recent colonoscopy and gastrointestinal symptoms: - Your colonoscopy on the showed small diverticula in the rectosigmoid, sigmoid, and descending colon, as well as two polyps (one in the rectosigmoid and one in the transverse colon). These polyps were sent for biopsy, and you are waiting for the results. Please call Dr. Addie Denson s office if you do not hear back by Tuesday. - The colonoscopy also revealed grade 3 hemorrhoids, a 3 mm anal fissure, and inflammation in the rectosigmoid area. However, the hemorrhoids were not thought to be the source of your bleeding. - You reported stringy bowel movements and occasional incontinence. Please call Dr. Addie Denson to discuss these symptoms, as you may need additional treatment. 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 Continue monitoring your symptoms and report any changes to Dr. Addie Denson. - Your colonoscopy also showed esophagitis (grade D), a small hiatal hernia, and duodenal polyps. Follow up with Dr. Addie Denson for further management of these findings. We discussed your anemia and magnesium deficiency: - Continue taking iron supplements for at least 3 to 6 months to address your anemia. You can purchase iron over the counter if your prescription is not covered. - Continue taking magnesium supplements, as your magnesium levels were low. These can also be purchased over the counter. We discussed your swollen feet: - Your feet have improved, but you noted occasional swelling. You may wear compression socks duringthe day to help manage this. Do not wear them at night. We discussed your breathing and yearly checkup: - You were recently seen by Dr. Delvalle for your breathing concerns, and no changes to your treatmentwere recommended. Continue your current management plan. Next steps: - Call Dr. Addie Denson s office to discuss your stringy bowel movements, incontinence, and any other concerns. Follow up with him regarding your biopsy results if you do not hear back by Tuesday. - Continue taking your iron and magnesium supplements as directed. - Monitor your symptoms, including bowel movements, swelling in your feet, and breathing, and report any significant changes to your healthcare providers. documented [facility]06[facility] NoteHNO ID: [id number] Author: TONA KIM PA-C Service: ? Author Type: Physician Divinity Professor Type: Progress Notes Filed: 01/07/2025 10:34 Note Text: Tona Kim PA-C Department of Orthopaedics Orthopaedics [address] [facility] [address] Dept: [phone] Dept January 07, 2025 CHIEF COMPLAINT: Follow Up of the Right Shoulder and Follow Up of the Left Shoulder (EMG results RUE) Right Arm Pain: - Persistent pain in right middle and ring fingers, radiating to the tricep region, x several months. - Denies numbness or burning sensations. - Nerve conduction study in November 2024 revealed mild right carpal tunnel syndrome. - Denies interest in surgical intervention. - presents today to discuss EMG results. 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 Carpal tunnel syndrome of right wrist (G56.01) - Nerve conduction study from November showed mild right carpal tunnel syndrome. - Symptoms include pain in the right middle and ring fingers, with radiation to the tricep region. - Administered cortisone injection to the right carpal tunnel. - Advised patient that the injection may take 3-5 days to take effect. - Instructed patient to monitor symptoms over the next week to week and a half and report any improvement. - Discussed that if symptoms improve significantly, carpal tunnel release surgery may be considered. 2. Cervical disc disorder with radiculopathy of cervical region (M50.10) - Symptoms of pain radiating up the arm may be indicative of cervical radiculopathy. - No recent cervical spine x-rays; previous x-rays from 2013 showed degenerative disc disease. - If cortisone injection does not alleviate symptoms, further evaluation by a specialist physicians may be necessary. Ms. Dick Artis was advised as to contrast therapies and/or to take analgesics/anti-inflammatories as needed and all contraindications were reviewed. OBJECTIVE: Ms. Dick Artis is a pleasant 89 year old in no apparent distress. Gen:There were no vitals taken for this visit. nl development, non obese, no deformities ENT: Normocephalic, normal hearing, moist mucosa CV: Pulses:Radial= 2+ and symmetric, capillary refill < 2 secs, no peripheral edema/varicosities Skin: no rash, bruising or lesions. Good turgor. Psych: cooperative and appropriate, alert and oriented x 3, good mood and affect. Musculoskeletal: Supple range of motion of the cervical spine without pain. Spurling signs are negative. No atrophy of the deltoid and shoulder musculature. Right shoulder is nontender to palpation over the SC joint, clavicle and AC joint. No tenderness to palpation over the posterior shoulder, nontender anterior lateral corner of the shoulder and greater tuberosity. Nontender at the bicipital groove and coracoid. Active range of motion is 85 degrees of forward elevation. Tenderness palpation over the right biceps region, no tenderness over the triceps. Some discomfort over the right cubital tunnel, no discomfort on palpation at the medial or lateral epicondyle of the elbow. Mid forearm discomfort noted over the flexor and extensor aspects. Patient is able to gently flex and extend the wrist without any discomfort. Also able to form a full composite fist and extend all digits without any locking or catching. Tinel's is negative at the wrist, negative carpal tunnel compression testing on the right. Sensation is intact in the axillary, radial, median and ulnar nerve distribution In addition to the comprehensive evaluation, assessment and plan outlined above, and as a distinct and separate element to the visit today, separate from discussed EMG results, we have made the determination to proceed with an injection to aid in the management of the patient's condition. We discussed the risks, benefits, alternatives and expected outcomes of this injection in detail, and the patient agreed to proceed. The procedure was performed as detailed below. Additional Injections: R carpal tunnel for carpal tunnel syndrome 01/07/2025 10:30 AM The procedure site was prepped in the usual sterile fashion. Medications: 3 mg betamethasone acetate-betamethasone sodium phosphate 6 mg/mL Anesthetics: 0.5 mL lidocaine (PF) 10 mg/mL (1 %) Outcome: tolerated well, no immediate complications Post-injection instructions were reviewed with the patient and the patient voiced understanding of these instructions. Informed Consent Consent Obtained: Verbal [place] Protocol A moment to CARE was completed. SIGN IN Sign in communication not applicable due to emergent procedure. Personnel directly involved with the procedure wore the appropriate PPE. Special Equipment: N/A Patient/Surrogate Stated/Verified: Patient name, Date of , Relevant allergies and Intended procedure TIME (more content not included)...[facility]06-23-2025 History of Present illness Narrative* Tona Kim PA-C - 01/07/2025 10:29 AM EDT Associated Order(s): Additional Injections: R carpal tunnel Post-Procedure Diagnose(s): Carpal tunnel syndrome of right wrist Tona Kim PA-C Department of Orthopaedics Orthopa[facility] [address] [place] [address] Dept: [phone] Dept January 07, 2025 CHIEF COMPLAINT: Follow Up of the Right Shoulder and Follow Up of the Left Shoulder (EMG results RUE) Right Arm Pain: - Persistent pain in right middle and ring fingers, radiating to the tricep region, x several months. - Denies numbness or burning sensations. - Nerve conduction study in November 2024 revealed mild right carpal tunnel syndrome. - Denies interest in surgical intervention. - presents today to discuss EMG results. 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 Carpal tunnel syndrome of right wrist (G56.01) - Nerve conduction study from November showed mild right carpal tunnel syndrome. - Symptoms include pain in the right middle and ring fingers, with radiation to the tricep region. - Administered cortisone injection to the right carpal tunnel. - Advised patient that the injection may take 3-5 days to take effect. - Instructed patient to monitor symptoms over the next week to week and a half and report any improvement. - Discussed that if symptoms improve significantly, carpal tunnel release surgery may be considered. 2. Cervical disc disorder with radiculopathy of cervical region (M50.10) - Symptoms of pain radiating up the arm may be indicative of cervical radiculopathy. - No recent cervical spine x-rays; previous x-rays from 2013 showed degenerative disc disease. - If cortisone injection does not alleviate symptoms, further evaluation by a specialist physicians may be necessary. Ms. Dick Artis was advised as to contrast therapies and/or to take analgesics/anti-inflammatories as needed and all contraindications were reviewed. OBJECTIVE: Ms. Dick Artis is a pleasant 89 year old in no apparent distress. Gen:There were no vitals taken for this visit. nl development, non obese, no deformities ENT: Normocephalic, normal hearing, moist mucosa CV: Pulses:Radial= 2+ and symmetric, capillary refill < 2 secs, no peripheral edema/varicosities Skin: no rash, bruising or lesions. Good turgor. Psych: cooperative and appropriate, alert and oriented x 3, good mood and affect. Musculoskeletal: Supple range of motion of the cervical spine without pain. Spurling signs are negative. No atrophy of the deltoid and shoulder musculature. Right shoulder is nontender to palpation over the SC joint,clavicle and AC joint. No tenderness to palpation over the posterior shoulder, nontender anterior lateral corner of the shoulder and greater tuberosity. Nontender at the bicipital groove and coracoid. Active range of motion is 85 degrees of forward elevation. Tenderness palpation over the right biceps region, no tenderness over the triceps. Some discomfort over the right cubital tunnel, no discomfort on palpation at the medial or lateral epicondyle of the elbow. Mid forearm discomfort noted over the flexor and extensor aspects. Patient is able to gently flex and extend the wrist without any discomfort. Also able to form a full composite fist and extend all digits without any locking or catching. Tinel's is negative at the wrist, negative carpal tunnel compression testing on the right. Sensation is intact in the axillary, radial, median and ulnar nerve distribution In addition to the comprehensive evaluation, assessment and plan outlined above, and as a distinct and separate element to the visit today, separate from discussed EMG results, we have made the determination to proceed with an injection to aid in the management of the patient's condition. We discussed the risks, benefits, alternatives and expected outcomes of this injection in detail, and the patient agreed to proceed. The procedure was performed as detailed below. Additional Injections: R carpal tunnel for carpal tunnel syndrome 01/07/2025 10:30 AM The procedure site was prepped in the usual sterile fashion. Medications: 3 mg betamethasone acetate-betamethasone sodium phosphate 6 mg/mL Anesthetics: 0.5 mL lidocaine (PF) 10 mg/mL (1 %) Outcome: tolerated well, no immediate complications Post-injection instructions were reviewed with the patient and the patient voiced understanding of these instructions. Informed Consent Consent Obtained: Verbal [place] Protocol A moment to CARE was completed. SIGN IN Sign in communication not applicable due to emergent procedure. Personnel directly involved with the procedure wore the appropriate PPE. Special Equipment: N/A Patient/Surrogate Stated/Verified: Patient name, Date of , Relevant allergies and Intended procedure TIME OUT Relevant labs, photos, and/or imaging studies have been reviewed. Consent documented and matches the intended procedure. Correct side/site marked and visible. Medications required for procedure verified. No fire risk assessment and interventions applicable. No implant(s) inserted. SIGN OUT No specimen collected. Imaging: Nerve conduction study [facility] Right upper extremity December 05, 2024 Impression electrodiagnostic findings suggestive of right sided median neuropathy, this is consistent with mild right carpal tunnel syndrome. No electrodiagnostic evidence is noted for cervical radiculopathy. Supporting Subjective Information Below: Past Surgical History: PAST SURGICAL HISTORY Procedure Laterality Date CAROTID ENDARTERECTOMY Left 01/23/2021 COLONOSCOPY FLX DX W/COLLJ SPEC WHEN PFRMD 03/25/2004 Colonoscopy CYSTOSCOPY 06/02/2012 left ureteral calculi ESOPHAGOGASTRODUODENOSCOPY TRANSORAL DIAGNOSTIC 03/25/2004 EGD PAST SURGICAL HISTORY OF 04/15/2004 right inferior parathyroidectomy TOTAL ABDOMINAL HYSTERECT W/WO RMVL TUBE OVARY 05/18/1971 Hysterectomy, WILFREDO, LSO carcinoma insitu Medications: Current Outpatient Medications Medication Sig albuterol HFA (VENTOLIN HFA) 90 mcg/actuation inhaler Inhale 2 Puffs as instructed every 4 hours asneeded for wheezing/shortness of breath. May take 2 puffs prior to exercise potassium chloride 20 mEq/15 mL solution Take 15 mL by mouth once daily. cholecalciferol, vitamin D3, (VITAMIN D3 ORAL) Take 1 tablet by mouth once daily. iron polysaccharide complex (FERREX-150) 150 mg iron capsule Take 1 capsule by mouth once daily. DULoxetine (CYMBALTA) 60 mg capsule Take 1 capsule by mouth once daily. clopidogrel (PLAVIX) 75 mg tablet Take 1 tablet by mouth once daily. atorvastatin (LIPITOR) 40 mg tablet Take 1 tablet by mouth once daily. arformoterol (BROVANA) 15 mcg/2 mL nebulizer solution Inhale 2 mL as instructed every 12 hours. budesonide (PULMICORT) 0.5 mg/2 mL nebulizer solution Use 2 mL via nebulizer two times a day. carvedilol (COREG) 25 mg tablet Take 1 tablet by mouth two times a day with meals. furosemide (LASIX) 40 mg tablet Take 1 tablet by mouth two times a day. pantoprazole DR (PROTONIX) 40 mg tablet Take 1 tablet by mouth two times a day. pramipexole (MIRAPEX) 1.5 mg tablet Take 1 tablet by mouth daily at bedtime. spironolactone (ALDACTONE) 25 mg tablet Take 1 tablet by mouth once daily. magnesium oxide (MAG-OX) 400 mg (241.3 mg magnesium) tablet Take 1 tablet by mouth once daily. OXYGEN, HOME THERAPY, 2 L/min by Nasal Cannula route as directed. 4L/min at night acetaminophen (TYLENOL) 500 mg tablet Take 1,000 mg by mouth every 6 hours as needed for pain (EVERY 6 HOURS NEEDED FOR PAIN). ciprofloxacin HCl (CIPRO) 500 mg tablet Take 500 mg by mouth once daily. (Patient not taking: Reported on 01/07/2025) metroNIDAZOLE (FLAGYL) 500 mg tablet Take 500 mg by mouth one time only. (Patient not taking: Reported on 01/07/2025) No current facility-administered medications for this visit. Allergies: Amlodipine, Aspirin, Lisinopril, and Requip [Ropinirole] ROS: General (negative for fatigue, malaise, weight loss/gain) HEENT (negative for headache, earache, recent vision changes, sinus pain, sore throat) Respiratory (no recent shortness of breath, hemoptysis) CV (negative for chest tightness, palpitations) Musculoskeletal (see HPI) Psych (no depression, anxiety) This note was partially generated using [employer] voice recognition system, and there may be some incorrect words, spellings, and punctuation that were not noted in checking the note before saving. Tona Kim PA-C * Alie Cr MA - 01/07/2025 8:40 AM EDT Patient presents with: Right Shoulder - Follow Up Left Shoulder - Follow Up: EMG results RUE AMB ROOMING INTAKE FLOWSHEET DATA Pain Pain Level: 4 Pain Location: Arm-Right Description: Sharp, Throbbing Duration Amount of Time: 6 Duration Units: Months Frequency: Continuous Intervention/Comfort measure: Aromatherapy to promote a healing environment Patient denies any pain today. Son with patient today. Here to discuss EMG. [facility] NoteHNO ID: [id number] Author: ALIE CR MA Service: ? Author Type: Senior Front End Engineer Type: Progress Notes Filed: 01/07/2025 10:34 Note Text: Patient presents with: Right Shoulder - Follow Up Left Shoulder - Follow Up: EMG results RUE AMB ROOMING INTAKE FLOWSHEET DATA Pain Pain Level: 4 Pain Location: Arm-Right Description: Sharp, Throbbing Duration Amount of Time: 6 Duration Units: Months Frequency: Continuous Intervention/Comfort measure: Aromatherapy to promote a healing environment Patient denies any pain today. Son with patient today. Here to discuss EMG. [facility]06-17-2025 Consult note Author Zan Peraza [facility] Note Date/Time January 01, 2025 3:07 pm [facility] Medical Records Department [address] [place] [address] Pre-Anesthesia Evaluation 01/01/25 1457 MR#: [id number] Acct: [id number] Name: DICK ARTIS Rep #:[id number] 5 : 1935 89 From: Zan Peraza MD PCP: Dr. Viktoriya Manzo MD Status:REG S DC Y Race: C Location: [place] [address] ASA Classification* ASA Classification ASA Classification: 3 (On continuous oxygen. HTN, GERD, COPD, h/o CHF. Use non-rebreather at 10 L for this patient ) Assessment & Plan Anesthesia* Anesthesia Assessment Anesthesia Assessment: Discussed sedation and/or anesthesia options, risks, benefits, and alternatives with patient/parents/legal guardian/POA. Questions invited. The patient/parents/legal guardian/POA seems to understand and agrees to proceedwith anesthesia plan. Reviewed the physical assessment, medical history, allergy history and patient home medications list prior to surgery/procedure/anesthetic and documented any changes. Performed airway and anesthesia risk assessments. Anesthesia Type Anesthesia Type: General History Source History Obtained from:: Patient and Chart Anesthesia Focused Assessment* Temperature: 98 F Pulse Rate: 70 Blood Pressure: 144/40 Respiratory Rate: 16 Pulse Ox: 100 Oxygen Flow Rate (L/min): 2 Airway Assessment Mouth opens: >3 cm Mallampati Score: III Teeth Condition: Intact Neck Range of motion (ROM): Full ROM Labs Anesthesia Preop lab: CBC WBC 7.2 K/mm3 (4.4-11.0) 12/18/24 09:53 12/18/24 RBC 3.44 M/mm3 (4.2-5.4) L 12/18/24 09:53 12/18/24 Hgb 10.9 g/dL (12.0-15.0) L 12/18/24 09:53 5 Hct 34.6 % (37-47) L 12/18/24 09:53 12/18/24 Plt Count 244 K/mm3 (150-450) 12/18/24 09:53 12/18/24 CHEMISTRY Potassium 4.0 mmol/L (3.3-5.1) 12/17/24 04:56 12/17/24 Sodium 144 mmol/L (133-145) 12/17/24 04:56 12/17/24 Magnesium 2.1 mg/dL (1.6-2.6) 06/07/24 05:46 06/07/24 Phosphorus 3.3 mg/dL (2.5-4.9) 06/08/24 07:12 06/08/24 BUN 52 mg/dL (4-19) H 12/17/24 04:56 12/17/24 Creatinine 1.45 mg/dL (0.70-1.20) H 12/17/24 04:56 Glucose 110 mg/dL (70-99) H 12/17/24 04:56 12/17/24 POC Glucose 100 mg/dL (74-106) 06/08/24 11:33 06/08/24 TSH 1.820 uIU/mL (0.358-3.740) 06/06/24 18:39 05/19 COAG PT 13.0 SECONDS (11.7-14.9) 12/17/24 04:56 Pre-Assessment Diagnosis/Proposed Procedure Planned Operative Procedure(s): COLONOSCOPY Anesthesia History 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 When Was Last Pacemaker Check QUESTION #4 FULL TEXT: You/Your Family Experience fever (hyperthermia) with Anesthesia Last Oral Intake Last Oral intake: Last Oral Intake NPO since 06:30 01/01/25 14:13 Meds taken in AM with sips of Yes 01/01/25 14:13 water? Meds patient instructed to take am of surgery PONV PONV - artist relationship manager: PONV - artist relationship manager Female Yes 12/27/24 15:28 HX of Motion Sickness No 12/27/24 15:28 HX of N/V After Surgery No 12/27/24 15:28 Non-Smoker Yes 12/27/24 15:28 Duration of Surgery greater No 12/27/24 15:28 than 60 minutes Number of Risk Factors 2 12/27/24 15:28 PONV Score Moderate Risk 12/27/24 15:28 Height & Weight Height & Weight: Anesthesia: Height & Weight Height 5 ft 2 in 01/01/25 14:13 Weight: 62 kg 01/01/25 14:13 Body Mass Index (BMI) 25.0 01/01/25 14:13 Respiratory Assessment Respiratory Assessment - artist relationship manager: Respiratory Tract Infection Hx - artist relationship manager Hx Respiratory Tract Infection No 12/27/24 15:28 STOP Sleep Apnea STOP Sleep Apnea - artist relationship manager: STOP Sleep Apnea - artist relationship manager Hx Hypertension Yes 12/27/24 15:28 Hx Sleep Apnea No 12/27/24 15:28 CPAP No 09/27/24 07:05 BIPAP No 11/03/23 18:31 Do you snore loudly (louder No 12/27/24 15:28 than talking or can be heard Do you often feel tired/ No 12/27/24 15:28 fatigued/ sleepy during daytime? Has anyone observed you stop No 12/27/24 15:28 breathing during sleep? STOP Results Negative 12/27/24 15:28 QUESTION #5 FULL TEXT : Do you snore loudly (louder than talking or can be heard through closed doors)? 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 Specify any problems Hx of Preganancy in last 3 No 12/27/24 15:28 Months Nurse Filling Out Transfusion [email or web address] 12/27/24 15:28 & Questions: Date: 12/27/24 12/27/24 15:28 Time: 15:34 12/27/24 15:28 Patient unable to answer at this time (ie. 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 Hx Now No 12/27/24 15:28 Gestational Age (in weeks): EDC: Hx Hx Para Hx Section SAB No 12/27/24 15:28 Active Medications Active Medications: Current Medications Generic Name Dose Route Start Last Admin Trade Name Freq PRN Reason Stop Dose Admin Lactated Ringer's 1,000 mls @ 15 mls/hr 01/01/25 14:30 01/01/25 14:37 IV 15 mls/hr .Q48H MUSA Administration PFSH Medical History (Updated 01/01/25 @ 14:[address] Valerio Friend, DO) GI (gastrointestinal bleed) Rash Back pain Cancer Thyroid disease Ambulates with cane History of renal disease TIA (transient ischemic attack) Acute diverticulitis Wears glasses Wears dentures Arthritis Low iron Anemia High cholesterol Migraine headache Restless legs Difficulty chewing History of diverticulitis Heartburn Gastric reflux Former smoker On home oxygen therapy Shortness of breath on exertion Chronic cough History of edema History of echocardiogram History of stress test Cardiology follow-up encounter Hypertension Chronic hypoxic respiratory failure History of diabetes mellitus History of hypertension Diverticulitis History of chronic heart failure History of COPD COPD (chronic obstructive pulmonary disease) Anemia Chronic heart failure with preserved ejection fraction (HFpEF) Hyperlipidemia Right lumbar radiculopathy CKD (chronic kidney disease), stage III Hypertension Chronic kidney disease PAD (peripheral artery disease) Renal cyst History of TIA (transient ischemic attack) Bilateral carotid artery stenosis Claudication RLS (restless legs syndrome) Diverticulosis TIA (transient ischemic attack) Vertigo Leg edema Dyslipidemia Home Medications ?Medication ?Instructions ?Recorded ?Last Taken ?Type atorvastatin 40 mg tablet 40 mg PO QHS cholesterol 01/3011/27/24 History clopidogrel 75 mg tablet 75 mg PO DAILY BLOOD THINNER 02/22/16 12/26/24 History albuterol sulfate 90 mcg/actuation 2 puff inhalation Q 4H PRN 03/16/18 09/27/24 History aerosol inhaler shortness of breath or wheez ing pramipexole 1.5 mg tablet 1.5 mg PO QHS restless leg s yndrome 08/18/23 11/27/24 History polysaccharide iron complex 150 mg 150 mg PO DAILY sup plement 30 days 10/12/23 12/26/24 Rx iron capsule (Ferrex) #30 caps acetaminophen 500 mg tablet 1,000 mg PO Q6H PRN pain 0 02/14/24 Unknown History arformoterol 15 mcg/2 mL solution 15 mcg inhalation BI D breathing 02/14/24 01/01/25 History for nebulization spironolactone 25 mg tablet 25 mg PO DAILY diuretic 11/28/24 History cholecalciferol (vitamin D3) 125 125 mcg PO DAILY 30 d ays #30 caps 06/08/24 11/28/24 Rx mcg (5,000 unit) capsule furosemide 40 mg tablet 40 mg PO BID FLUID RETENTION 09/24/24 11/28/24 History pantoprazole 40 mg tablet,delayed 40 mg PO BID reflux 09/24/24 01/01/25 History release budesonide 0.5 mg/2 mL suspension 0.5 mg inhalation BI D breathing 11/28/24 01/01/25 History for nebulization carvedilol 25 mg tablet 25 mg PO BID 11/28/24 History magnesium oxide 400 mg PO DAILY 11/28/24 History potassium chloride 20 mEq/15 mL 20 meq PO DAILY 11/28/24 History oral liquid cetirizine 10 mg tablet (24Hour 10 mg PO DAILY 5 Unknown History Allergy) dicyclomine 10 mg capsule 10 mg PO BID #20 caps Unknown Rx peg 3350-electrolytes 236 240 ml PO Q10M #4,000 mL 10/09 Unknown Rx gram-22.74 gram-6.74 gram-5.86 gram solution (Golytely) duloxetine 60 mg capsule,delayed 60 mg PO DAILY 01/01/25 History release Allergy/AdvReac Type Severity Reaction Status Date / Time lisinopril Allergy edema Verified 12/27/24 15:21 aspirin AdvReac Upset Verified 12/27/24 15:21 Stomach Family History Mother Heart disease Surgical History History of thyroid surgery History of carotid angioplasty History of kidney stones History of basal cell carcinoma excision History of total hysterectomy Social History household members: none housing: house Smoking Status: Former smoker how long ago did patient quit smokin years ago alcohol intake: current alcohol intake frequency: holidays/special occasions only details: rare substance use type: does not use caffeine: Yes Type: coffee Number of servings: 1 Review of Systems (Anesthesia) ROS Narrative System reviewed and no additional complaints, except as documented. Physical Exam Const alert, oriented x3 and average body habitus Resp normal respiratory effort, normal air movement and clear to auscultation bilaterally Cardio regular rate, regular rhythm, no murmurs and diaphoretic 01/01/25 1507 <Electronically signed by Zan Peraza MD> Date _ Zan Peraza MD Cosigner Signature: Date CC: ~ Signed [facility] Work Phone: [phone] 616-690206-17-2025 History and physical note Author Teodoro Friend [facility] Note Date/Time January 01, 2025 2:30 pm [facility] Medical Records Department [address] [place] [address] History & Physical Exam 01/01/25 1428 MR#: [id number] Acct: [id number] Name: DICK ARTIS Rep #:[id number] : 1935 89 From: Teodoro Real DO PCP: Dr. Viktoriya Manzo MD Status:REG S CT Location: [place] [address] HPI - General General Date of Admission: 01/01/25 Date of Service: 01/01/25 Chief Complaint: Lower GI bleeding HPI Narrative DICK ARTIS, is a 89 F who presents with lower GI bleeding BGI established in Aug 2023 during hospitalization for NSTEMI and COPD exacerbation. Found to have a down trending hemoglobin and underwent EGD. EGD 09.16.23; - LA Grade D erosive esophagitis with bleeding. Treated with a heater probe. - Non-bleeding gastric ulcers with no stigmata of bleeding. Biopsied. - Acute duodenitis. Biopsied EGD 04.19.24; - Abnormal esophageal motility, consistent with aperistalsis. Dilated. - Small hiatal hernia. - Gastric mucosal variant. Biopsied. - A few duodenal polyps. Resected and retrieved. *Start amitriptyline 10 mg daily but discontinued due to side effects. [facility] admission 06.06.24-06.08.24 with severe hypomagnesia, hypocalcemia and diverticulitis Last OV 08.13.24 Pt continues with swallowing issues. Scheduled for EGD with botox EGD 09.27.24; - Achalasia. Injected with botulinum toxin. - No gross lesions in the entire stomach. - No gross lesions in the first portion of the duodenum. - No specimens collected. [facility] ED with two episodes BRBPR over the past week. Pt on Eliquis. CT showing diverticulosis, moderate diffuse thickening of the colon, more prominent in the rectosigmoid colon, probably colitis without evidence of perforation pneumonitiscoli. No active bleeding. small hiatal hernia and diffuse thickening of the stomach suggestive of gastritis. OV 6.3.25 Pt continues with abdominal pain. Pain is in the LLQ and a 6/10. She feels constipated this week but last week was having diarrhea. She has had no further episodes of BRBPR. [facility] Medical History (Updated 01/01/25 @ 14:[address] Valerio Friend, DO) GI (gastrointestinal bleed) Rash Back pain Cancer Thyroid disease Ambulates with cane History of renal disease TIA (transient ischemic attack) Acute diverticulitis Wears glasses Wears dentures Arthritis Low iron Anemia High cholesterol Migraine headache Restless legs Difficulty chewing History of diverticulitis Heartburn Gastric reflux Former smoker On home oxygen therapy Shortness of breath on exertion Chronic cough History of edema History of echocardiogram History of stress test Cardiology follow-up encounter Hypertension Chronic hypoxic respiratory failure History of diabetes mellitus History of hypertension Diverticulitis History of chronic heart failure History of COPD COPD (chronic obstructive pulmonary disease) Anemia Chronic heart failure with preserved ejection fraction (HFpEF) Hyperlipidemia Right lumbar radiculopathy CKD (chronic kidney disease), stage III Hypertension Chronic kidney disease PAD (peripheral artery disease) Renal cyst History of TIA (transient ischemic attack) Bilateral carotid artery stenosis Claudication RLS (restless legs syndrome) Diverticulosis TIA (transient ischemic attack) Vertigo Leg edema Dyslipidemia Home Medications ?Medication ?Instructions ?Recorded ?Last Taken ?Type atorvastatin 40 mg tablet 40 mg PO QHS cholesterol 01/3011/27/24 History clopidogrel 75 mg tablet 75 mg PO DAILY BLOOD THINNER 02/22/16 12/26/24 History albuterol sulfate 90 mcg/actuation 2 puff inhalation Q 4H PRN 03/16/18 09/27/24 History aerosol inhaler shortness of breath or wheez ing pramipexole 1.5 mg tablet 1.5 mg PO QHS restless leg s yndrome 08/18/23 11/27/24 History polysaccharide iron complex 150 mg 150 mg PO DAILY sup plement 30 days 10/12/23 12/26/24 Rx iron capsule (Ferrex) #30 caps acetaminophen 500 mg tablet 1,000 mg PO Q6H PRN pain 0 02/14/24 Unknown History arformoterol 15 mcg/2 mL solution 15 mcg inhalation BI D breathing 02/14/24 01/01/25 History for nebulization spironolactone 25 mg tablet 25 mg PO DAILY diuretic 11/28/24 History cholecalciferol (vitamin D3) 125 125 mcg PO DAILY 30 d ays #30 caps 06/08/24 11/28/24 Rx mcg (5,000 unit) capsule furosemide 40 mg tablet 40 mg PO BID FLUID RETENTION 09/24/24 11/28/24 History pantoprazole 40 mg tablet,delayed 40 mg PO BID reflux 09/24/24 01/01/25 History release budesonide 0.5 mg/2 mL suspension 0.5 mg inhalation BI D breathing 11/28/24 01/01/25 History for nebulization carvedilol 25 mg tablet 25 mg PO BID 11/28/24 History magnesium oxide 400 mg PO DAILY 11/28/24 History potassium chloride 20 mEq/15 mL 20 meq PO DAILY 11/28/24 History oral liquid cetirizine 10 mg tablet (24Hour 10 mg PO DAILY 5 Unknown History Allergy) dicyclomine 10 mg capsule 10 mg PO BID #20 caps Unknown Rx peg 3350-electrolytes 236 240 ml PO Q10M #4,000 mL 10/09 Unknown Rx gram-22.74 gram-6.74 gram-5.86 gram solution (Golytely) duloxetine 60 mg capsule,delayed 60 mg PO DAILY 01/01/25 History release Allergy/AdvReac Type Severity Reaction Status Date / Time lisinopril Allergy edema Verified 12/27/24 15:21 aspirin AdvReac Upset Verified 12/27/24 15:21 Stomach Family History Mother Heart disease Surgical History History of thyroid surgery History of carotid angioplasty History of kidney stones History of basal cell carcinoma excision History of total hysterectomy Social History household members: none housing: house Smoking Status: Former smoker how long ago did patient quit smokin years ago alcohol intake: current alcohol intake frequency: holidays/special occasions only details: rare substance use type: does not use caffeine: Yes Type: coffee Number of servings: 1 ROS Constitutional Constitutional: Denies fatigue, fever(s), poor appetite, weight gain or weight loss Gastrointestinal Gastrointestinal: Denies belching, bloating, change in bowel habits, change in stool character, chewing difficulty, coffee ground emesis, constipation, cramping, diarrhea, dyspepsia, dysphagia, early satiety, excessive flatus, fecalincontinence, heartburn, hematemesis, hematochezia, hemorrhoids, loose stools, melena, nausea, odynophagia, rectal bleeding, tenesmus, vomiting or weight changes Vital Signs Vital Signs Vital Signs: 01/01/25 14:13 01/01/25 14:13 Temperature 98 F Temperature Source Temporal Pulse Rate 70 Respiratory Rate 16 Respiratory Pattern Normal Blood Pressure 144/40 H Blood Pressure Mean 74 Blood Pressure Source Monitor Blood Pressure Position Semi-Fowlers Blood Pressure Location Left Arm Pulse Ox 100 Oxygen Delivery Method Nasal Cannula Oxygen Flow Rate (L/min) 2 Weight Weight: 136 lb 10.986 oz Body Mass Index (BMI) 25.0 Physical Exam Const alert, oriented x3, no apparent distress and healthy appearing General Appearance: cooperative GI normal to inspection, nondistended, normoactive bowel sounds, soft to palpation,non-tender and non-distended Percussion: normal to percussion Rectal Exam: deferred Assessment & Plan Assessment/Plan (1) Anemia: (2) GI bleed: PLAN: Assessment and Plan Assessment and Plan (1) GI (gastrointestinal bleed): Status: Acute Plan: Dick is an 89 yo female who established with [facility] previously for difficulty swallowing. She is here today for ED f/u after presenting to the ED 6.. with BRBPR and abd pain. Hemoglobin was stable at 12.2 which was improved from prior.CT showing thickening of the colon more in the rectosigmoid colon and no acute bleeding. Pt was discharged with close GI f/u. Today she continues to have LLQ abd pain but no further episodes of bleeding. I have ordered repeat CBC to monitor her hgb. She will undergo colonoscopy in the next 1-2 weeks for further evaluation. I have also ordered stool testing for infection or inflammation. -Colonoscopy -Stool testing -CBC -f/u after procedure (2) Colitis: Status: Acute (3) Diarrhea: Status: Resolved Qualifiers: Diarrhea type: unspecified type Qualified Code(s): R19.7 - Diarrhea, unspecified Orders: Orders CBC W/Diff, Automated Today D64.9 - Anemia, unspecified ENTERIC PATHOGEN PANEL STOOL Today K52.9 - Noninfective gastroenteritis and colitis, unspecified, K58.9 - Irritable bowel syndrome, unspecified, K92.2 - Gastrointestinal hemorrhage, unspecified, R19.7 - Diarrhea, unspecified Giardia Lamblia, Stool EIA Today K52.9 - Noninfective gastroenteritis and colitis, unspecified, K92.2 - Gastrointestinal hemorrhage, unspecified, R19.7 - Diarrhea, unspecified Ova and Parasites 8623 Today K52.9 - Noninfective gastroenteritis and colitis, unspecified, K58.9 - Irritable bowel syndrome, unspecified, K92.2 - Gastrointestinal hemorrhage, unspecified, R19.7 - Diarrhea, unspecified Calprotectin, Stool Today K52.9 - Noninfective gastroenteritis and colitis, unspecified, K92.2 - Gastrointestinal hemorrhage, unspecified, R19.7 - Diarrhea,unspecified CDIFF (PCR) Today K52.9 - Noninfective gastroenteritis and colitis, unspecified, K92.2 - Gastrointestinal hemorrhage, unspecified, R19.7 - Diarrhea,unspecified Medications: New dicyclomine 10 mg PO BID 20 caps 1RF peg 3350-electrolytes 236-22.74-6.74 -5.86 gram (Golytely) until fecal effluent is clear 240 mL PO Q10M 4,000 mL 0RF 01/01/25 1430 <Electronically signed by Teodoro Real DO> Cosigner Signature (if applicable): CC: Dr. Viktoriya Manzo MD; Teodoro Real DO~ Signed [facility] Work Phone: [phone] 933-510306-17-2025 Procedure note [facility] Medical Records Department [address] [place] [address] Colonoscopy Report MR#: [id number] Acct: [id number] Name: DICK ARTIS Rep #:[id number] 5 : 1935 89 From: Teodoro Real DO PCP: Dr. Viktoriya Manzo MD Status:REG S DC Patient Name: Dick Artis Procedure Date: 01/01/2025 3:18 PM Date of : 1935 Age: 89 Procedure: Colonoscopy Indications: Hematochezia Providers: Teodoro Real DO Referring MD: Viktoriya Manzo Medicines: Monitored Anesthesia Care Patient Profile: This is an 89 year old female. Refer to note in patient chart for documentation of history and physical. Last Colonoscopy: date unknown. Unable to locate last colonoscopy report. Complications: No immediate complications. Estimated blood loss: None. Procedure: Pre-Anesthesia Assessment: - Prior to the procedure, a History and Physical was performed, and patient medications and allergies were reviewed. The patient is competent. The risks and benefits of the procedure and the sedation options and risks were discussed with the patient. All questions were answered and informed consent was obtained. Patient identification and proposed procedure were verified by the physician in the pre-procedure area. Mental Status Examination: alert and oriented. Airway Examination: normal oropharyngeal airway and neck mobility. Respiratory Examination: clear to auscultation. CV Examination: normal. Prophylactic Antibiotics: The patient does not require prophylactic antibiotics. Prior Anticoagulants: The patient has taken no anticoagulant or antiplatelet agents except for NSAID medication. ASA Grade Assessment: II - A patient with mild systemic disease. After reviewing the risks and benefits, the patient was deemed in satisfactory condition to undergo the procedure. The anesthesia plan was to use monitored anesthesia care (MAC). Immediately prior to administration of medications, the patient was re-assessed for adequacy to receive sedatives. The heart rate, respiratory rate, oxygen saturations, blood pressure, adequacy of pulmonary ventilation, and response to care were monitored throughout the procedure. The physical status of the patient was re-assessed after the procedure. After I obtained informed consent, the scope was passed under direct vision. Throughout the procedure, the patient's blood pressure, pulse, and oxygen saturations were monitored continuously. The adult colonoscope was introduced through the anus and advanced to the cecum, identified by appendiceal orifice and ileocecal valve. The colonoscopy was performed without difficulty. The patient tolerated the procedure well. The quality of the bowel preparation was adequate. The ileocecal valve, appendiceal orifice, and rectum were photographed. Scope In: 3:28:05 PM Scope Withdrawal Time 0 hours 13 minutes 47 seconds Scope Out: 3:49:27 PM Total Procedure Duration Time 0 hours 21 minutes 22 seconds Findings: The perianal and digital rectal examinations were normal. Multiple small and large-mouthed diverticula were found in the recto-sigmoid colon, sigmoid colon and descending colon. A 10 mm polyp was found in the recto-sigmoid colon. The polyp was semi-pedunculated. The polyp was removed with a hot snare. Resection and retrieval were complete. Verification of patient identification for the specimen was done. Estimated blood loss was minimal. A 5 mm polyp was found in the transverse colon. The polyp was sessile. The polyp was removed with a jumbo cold forceps. Resection and retrieval were complete. Verification of patient identification for the specimen was done. Estimated blood loss was minimal. Non-bleeding external and internal hemorrhoids were found during retroflexion, during perianal exam and during digital exam. The hemorrhoids were large and Grade III (internal hemorrhoids that prolapse but require manual reduction). Localized moderate inflammation characterized by erosions, erythema, friability and granularity was found in the recto-sigmoid colon. A 3 mm anal fissure was found in the anal canal. Impression: - Diverticulosis in the recto-sigmoid colon, in the sigmoid colon and in the descending colon. - One 10 mm polyp at the recto-sigmoid colon, removed with a hot snare. Resected and retrieved. - One 5 mm polyp in the transverse colon, removed with a jumbo cold forceps. Resected and retrieved. - Non-bleeding external and internal hemorrhoids. - Localized moderate inflammation was found in the recto-sigmoid colon secondary to ischemic colitis. - Anal fissure. Recommendation: - Discharge patient to home. - Resume previous diet. - Continue present medications. - Await pathology results. - No repeat colonoscopy due to age. Procedure Code(s): --- Professional --- 93877, Colonoscopy, flexible; with removal of tumor(s), polyp(s), or other lesion(s) by snare technique 93168, 59, Colonoscopy, flexible; with biopsy, single or multiple CPT copyright 2021 [employer]. All rights reserved. The codes documented in this report are preliminary and upon mixing picker tender review may be revised to meet current compliance requirements. Teodoro Real DO 01/01/2025 3:59:59 PM This report has been signed electronically. Number of Addenda: 0 Note Initiated On: 01/01/2025 3:18 PM 01/01/25 1600 Date _ Teodoro Real DO Cosigner Signature: Date (if indicated) CC: Dr. Viktoriya Manzo MD; Teodoro Real DO ~ Date Dictated: 01/01/25 1518 Date Transcribed: 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: RF Signed [facility]06-17-2025 Procedure note [facility] Medical Records Department [address] [place] [address] Operative Report - CC Letter MR#: [id number] Acct: [id number] Name: DICK ARTIS Rep #:[id number] : 1935 89 From: Teodoro Real DO PCP: Dr. Viktoriya Manzo MD Status:REG S DC 01/01/2025 Viktoriya Manzo [address] [place] [address] Re : Colonoscopy procedure for Dick Artis Dear Dr. Manzo This procedure was performed on Wednesday, January 01, 2025. My impressions and recommendations are as follows: Impressions : - Diverticulosis in the recto-sigmoid colon, in the sigmoid colon and in the descending colon. - One 10 mm polyp at the recto-sigmoid colon, removed with a hot snare. Resected and retrieved. - One 5 mm polyp in the transverse colon, removed with a jumbo cold forceps. Resected and retrieved. - Non-bleeding external and internal hemorrhoids. - Localized moderate inflammation was found in the recto-sigmoid colon secondary to ischemic colitis. - Anal fissure. Recommendations : - Discharge patient to home. - Resume previous diet. - Continue present medications. - Await pathology results. - No repeat colonoscopy due to age. My findings are described in the full procedure note, which is enclosed. If I can be of further assistance, please feel free to contact me at . Sincerely, Teodoro Real DO 01/01/2025 3:59:59 PM This report has been signed electronically. 01/01/25 1600 Date _ Teodoro Real DO Cosigner Signature: Date (if indicated) CC: Dr. Viktoriya Manzo MD; Teodoro Real DO ~ Date Dictated: 01/01/258 Date Transcribed: 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: RF Signed [facility]06-17-2025 Consult note [facility] Medical Records Department [address] [place] [address] Anesthesia Postop Eval I 01/01/251556 MR#: [id number] Acct: [id number] Name: DICK ARTIS Rep #:[id number] : 1935 89 From: Juan Carlos Grant PCP: Dr. Viktoriya Manzo MD Status:REG S DC Y Race: C Location: [place] [address] Anesthesia: Postop Eval I Current Vital Signs Temperature: 97.8 F Pulse Rate: 70 Blood Pressure: 115/52 Respiratory Rate: 16 Pulse Ox: 98 Oxygen Delivery Method: Nasal Cannula Oxygen Flow Rate (L/min): 2 Assessment Airway patent: Yes Spontaneous unlabored respirations: Yes Mental status: Awake and Calm nausea: No Vomiting: No Anesthesia Complication: No Fluid Hydration Crystalloid volume administer (ml): 400 Total IV fluid infused: 400 Progress Note Anesthesia document: Postop Eval 1 completed: Yes 01/01/25 1558 > Date _ Juan Carlos Lombardo Signature: Date CC: ~ Signed [facility]06-17-2025 Consult note [facility] Medical Records Department [address] [place] [address] Pre-Anesthesia Evaluation 01/01/25 1457 MR#: [id number] Acct: [id number] Name: DICK ARTIS Rep #:[id number] : 1935 89 From: Zan Peraza MD PCP: Dr. Viktoriya Manzo MD Status:REG S DC Y Race: C Location: [place] [address] ASA Classification* ASA Classification ASA Classification: 3 (On continuous oxygen. HTN, GERD, COPD, h/o CHF. Use non- rebreather at 10 L for this patient ) Assessment & Plan Anesthesia* Anesthesia Assessment Anesthesia Assessment: Discussed sedation and/or anesthesia options, risks, benefits, and alternatives with patient/parents/legal guardian/POA. Questions invited. The patient/parents/legal guardian/POA seems to understand and agrees to proceedwith anesthesia plan. Reviewed the physical assessment, medical history, allergy history and patient home medications list prior to surgery/procedure/anesthetic and documented any changes. Performed airway and anesthesia risk assessments. Anesthesia Type Anesthesia Type: General History Source History Obtained from:: Patient and Chart Anesthesia Focused Assessment* Temperature: 98 F Pulse Rate: 70 Blood Pressure: 144/40 Respiratory Rate: 16 Pulse Ox: 100 Oxygen Flow Rate (L/min): 2 Airway Assessment Mouth opens: >3 cm Mallampati Score: III Teeth Condition: Intact Neck Range of motion (ROM): Full ROM Labs Anesthesia Preop lab: CBC WBC 7.2 K/mm3 (4.4-11.0) 12/18/24 09:53 12/18/24 RBC 3.44 M/mm3 (4.2-5.4) L 12/18/24 09:53 12/18/24 Hgb 10.9 g/dL (12.0-15.0) L 12/18/24 09:53 5 Hct 34.6 % (37-47) L 12/18/24 09:53 12/18/24 Plt Count 244 K/mm3 (150-450) 12/18/24 09:53 12/18/24 CHEMISTRY Potassium 4.0 mmol/L (3.3-5.1) 12/17/24 04:56 12/17/24 Sodium 144 mmol/L (133-145) 12/17/24 04:56 12/17/24 Magnesium 2.1 mg/dL (1.6-2.6) 06/07/24 05:46 06/07/24 Phosphorus 3.3 mg/dL (2.5-4.9) 06/08/24 07:12 06/08/24 BUN 52 mg/dL (4-19) H 12/17/24 04:56 12/17/24 Creatinine 1.45 mg/dL (0.70-1.20) H 12/17/24 04:56 Glucose 110 mg/dL (70-99) H 12/17/24 04:56 12/17/24 POC Glucose 100 mg/dL (74-106) 06/08/24 11:33 06/08/24 TSH 1.820 uIU/mL (0.358-3.740) 06/06/24 18:39 05/19 COAG PT 13.0 SECONDS (11.7-14.9) 12/17/24 04:56 Pre-Assessment Diagnosis/Proposed Procedure Planned Operative Procedure(s): COLONOSCOPY Anesthesia History 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 When Was Last Pacemaker Check QUESTION #4 FULL TEXT: You/Your Family Experience fever (hyperthermia) with Anesthesia Last Oral Intake Last Oral intake: Last Oral Intake NPO since 06:30 01/01/25 14:13 Meds taken in AM with sips of Yes 01/01/25 14:13 water? Meds patient instructed to take am of surgery PONV PONV - artist relationship manager: PONV - artist relationship manager Female Yes 12/27/24 15:28 HX of Motion Sickness No 12/27/24 15:28 HX of N/V After Surgery No 12/27/24 15:28 Non-Smoker Yes 12/27/24 15:28 Duration of Surgery greater No 12/27/24 15:28 than 60 minutes Number of Risk Factors 2 12/27/24 15:28 PONV Score Moderate Risk 12/27/24 15:28 Height & Weight Height & Weight: Anesthesia: Height & Weight Height 5 ft 2 in 01/01/25 14:13 Weight: 62 kg 01/01/25 14:13 Body Mass Index (BMI) 25.0 01/01/25 14:13 Respiratory Assessment Respiratory Assessment - artist relationship manager: Respiratory Tract Infection Hx - artist relationship manager Hx Respiratory Tract Infection No 12/27/24 15:28 STOP Sleep Apnea STOP Sleep Apnea - artist relationship manager: STOP Sleep Apnea - artist relationship manager Hx Hypertension Yes 12/27/24 15:28 Hx Sleep Apnea No 12/27/24 15:28 CPAP No 09/27/24 07:05 BIPAP No 11/03/23 18:31 Do you snore loudly (louder No 12/27/24 15:28 than talking or can be heard Do you often feel tired/ No 12/27/24 15:28 fatigued/ sleepy during daytime? Has anyone observed you stop No 12/27/24 15:28 breathing during sleep? STOP Results Negative 12/27/24 15:28 QUESTION #5 FULL TEXT : Do you snore loudly (louder than talking or can be heard through closeddoors)? 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 Specify any problems Hx of Preganancy in last 3 No 12/27/24 15:28 Months Nurse Filling Out Transfusion [email or web address] 12/27/24 15:28 & Questions: Date: 12/27/24 12/27/24 15:28 Time: 15:34 12/27/24 15:28 Patient unable to answer at this time (ie. 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 Hx Now No 12/27/24 15:28 Gestational Age (in weeks): EDC: Hx Hx Para Hx Section SAB No 12/27/24 15:28 Active Medications Active Medications: Current Medications Generic Name Dose Route Start Last Admin Trade Name Freq PRN Reason Stop Dose Admin Lactated Ringer's 1,000 mls @ 15 mls/hr 01/01/25 14:30 01/01/25 14:37 IV 15 mls/hr .Q48H MUSA Administration PFSH Medical History (Updated 01/01/25 @ 14:[address] Valerio Friend, DO) GI (gastrointestinal bleed) Rash Back pain Cancer Thyroid disease Ambulates with cane History of renal disease TIA (transient ischemic attack) Acute diverticulitis Wears glasses Wears dentures Arthritis Low iron Anemia High cholesterol Migraine headache Restless legs Difficulty chewing History of diverticulitis Heartburn Gastric reflux Former smoker On home oxygen therapy Shortness of breath on exertion Chronic cough History of edema History of echocardiogram History of stress test Cardiology follow-up encounter Hypertension Chronic hypoxic respiratory failure History of diabetes mellitus History of hypertension Diverticulitis History of chronic heart failure History of COPD COPD (chronic obstructive pulmonary disease) Anemia Chronic heart failure with preserved ejection fraction (HFpEF) Hyperlipidemia Right lumbar radiculopathy CKD (chronic kidney disease), stage III Hypertension Chronic kidney disease PAD (peripheral artery disease) Renal cyst History of TIA (transient ischemic attack) Bilateral carotid artery stenosis Claudication RLS (restless legs syndrome) Diverticulosis TIA (transient ischemic attack) Vertigo Leg edema Dyslipidemia Home Medications ?Medication ?Instructions ?Recorded ?Last Taken ?Type atorvastatin 40 mg tablet 40 mg PO QHS cholesterol 01/3011/27/24 History clopidogrel 75 mg tablet 75 mg PO DAILY BLOOD THINNER 02/22/16 12/26/24 History albuterol sulfate 90 mcg/actuation 2 puff inhalation Q 4H PRN 03/16/18 09/27/24 History aerosol inhaler shortness of breath or wheez ing pramipexole 1.5 mg tablet 1.5 mg PO QHS restless leg s yndrome 08/18/23 11/27/24 History polysaccharide iron complex 150 mg 150 mg PO DAILY sup plement 30 days 10/12/23 12/26/24 Rx iron capsule (Ferrex) #30 caps acetaminophen 500 mg tablet 1,000 mg PO Q6H PRN pain 0 02/14/24 Unknown History arformoterol 15 mcg/2 mL solution 15 mcg inhalation BI D breathing 02/14/24 01/01/25 History for nebulization spironolactone 25 mg tablet 25 mg PO DAILY diuretic 11/28/24 History cholecalciferol (vitamin D3) 125 125 mcg PO DAILY 30 d ays #30 caps 06/08/24 11/28/24 Rx mcg (5,000 unit) capsule furosemide 40 mg tablet 40 mg PO BID FLUID RETENTION 09/24/24 11/28/24 History pantoprazole 40 mg tablet,delayed 40 mg PO BID reflux 09/24/24 01/01/25 History release budesonide 0.5 mg/2 mL suspension 0.5 mg inhalation BI D breathing 11/28/24 01/01/25 History for nebulization carvedilol 25 mg tablet 25 mg PO BID 11/28/24 History magnesium oxide 400 mg PO DAILY 11/28/24 History potassium chloride 20 mEq/15 mL 20 meq PO DAILY 11/28/24 History oral liquid cetirizine 10 mg tablet (24Hour 10 mg PO DAILY 06/02/2 5 Unknown History Allergy) dicyclomine 10 mg capsule 10 mg PO BID #20 caps Unknown Rx peg 3350-electrolytes 236 240 ml PO Q10M #4,000 mL 10/09 Unknown Rx gram-22.74 gram-6.74 gram-5.86 gram solution (Golytely) duloxetine 60 mg capsule,delayed 60 mg PO DAILY 01/01/25 History release Allergy/AdvReac Type Severity Reaction Status Date / Time lisinopril Allergy edema Verified 12/27/24 15:21 aspirin AdvReac Upset Verified 12/27/24 15:21 Stomach Family History Mother Heart disease Surgical History History of thyroid surgery History of carotid angioplasty History of kidney stones History of basal cell carcinoma excision History of total hysterectomy Social History household members: none housing: house Smoking Status: Former smoker how long ago did patient quit smokin years ago alcohol intake: current alcohol intake frequency: holidays/special occasions only details: rare substance use type: does not use caffeine: Yes Type: coffee Number of servings: 1 Review of Systems (Anesthesia) ROS Narrative System reviewed and no additional complaints, except as documented. Physical Exam Const alert, oriented x3 and average body habitus Resp normal respiratory effort, normal air movement and clear to auscultation bilaterally Cardio regular rate, regular rhythm, no murmurs and diaphoretic 01/01/25 1507 > Date _ Zan Bandaignmarzena Signature: Date CC: ~ Signed [facility]06-17-2025 History and physical note [facility] Medical Records Department [address] [place] [address] History & Physical Exam 01/01/25 1428 MR#: [id number] Acct: [id number] Name: DICK ARTIS Rep #:[id number] : 1935 89 From: Teodoro Friend DO PCP: Dr. Viktoriya Manzo MD Status:REG S CT Location: [place] [address] HPI - General General Date of Admission: 01/01/25 Date of Service: 01/01/25 Chief Complaint: Lower GI bleeding HPI Narrative DICK ARTIS, is a 89 F who presents with lower GI bleeding BGI established in Aug 2023 during hospitalization for NSTEMI and COPD exacerbation. Found to have a down trending hemoglobin and underwent EGD. EGD .08.10; - LA Grade D erosive esophagitis with bleeding. Treated with a heater probe. - Non-bleeding gastric ulcers with no stigmata of bleeding. Biopsied. - Acute duodenitis. Biopsied EGD 04.19.24; - Abnormal esophageal motility, consistent with aperistalsis. Dilated. - Small hiatal hernia. - Gastric mucosal variant. Biopsied. - A few duodenal polyps. Resected and retrieved. *Start amitriptyline 10 mg daily but discontinued due to side effects. [facility] admission 06.06.24-24 with severe hypomagnesia, hypocalcemia and diverticulitis Last OV 08.13.24 Pt continues with swallowing issues. Scheduled for EGD with botox EGD 09.27.24; - Achalasia. Injected with botulinum toxin. - No gross lesions in the entire stomach. - No gross lesions in the first portion of the duodenum. - No specimens collected. [facility] ED with two episodes BRBPR over the past week. Pt on Eliquis. CT showing diverticulosis, moderate diffuse thickening of the colon, more prominent in the rectosigmoid colon, probably colitis without evidence of perforation pneumonitiscoli. No active bleeding. small hiatal hernia and diffuse thickening of the stomach suggestive of gastritis. OV 6.10.09 Pt continues with abdominal pain. Pain is in the LLQ and a 6/10. She feels constipated this week but last week was having diarrhea. She has had no further episodes of BRBPR. [facility] Medical History (Updated 01/01/25 @ 14:[address] Valerio Friend, DO) GI (gastrointestinal bleed) Rash Back pain Cancer Thyroid disease Ambulates with cane History of renal disease TIA (transient ischemic attack) Acute diverticulitis Wears glasses Wears dentures Arthritis Low iron Anemia High cholesterol Migraine headache Restless legs Difficulty chewing History of diverticulitis Heartburn Gastric reflux Former smoker On home oxygen therapy Shortness of breath on exertion Chronic cough History of edema History of echocardiogram History of stress test Cardiology follow-up encounter Hypertension Chronic hypoxic respiratory failure History of diabetes mellitus History of hypertension Diverticulitis History of chronic heart failure History of COPD COPD (chronic obstructive pulmonary disease) Anemia Chronic heart failure with preserved ejection fraction (HFpEF) Hyperlipidemia Right lumbar radiculopathy CKD (chronic kidney disease), stage III Hypertension Chronic kidney disease PAD (peripheral artery disease) Renal cyst History of TIA (transient ischemic attack) Bilateral carotid artery stenosis Claudication RLS (restless legs syndrome) Diverticulosis TIA (transient ischemic attack) Vertigo Leg edema Dyslipidemia Home Medications ?Medication ?Instructions ?Recorded ?Last Taken ?Type atorvastatin 40 mg tablet 40 mg PO QHS cholesterol 01/3011/27/24 History clopidogrel 75 mg tablet 75 mg PO DAILY BLOOD THINNER 02/22/16 12/26/24 History albuterol sulfate 90 mcg/actuation 2 puff inhalation Q 4H PRN 03/16/18 09/27/24 History aerosol inhaler shortness of breath or wheez ing pramipexole 1.5 mg tablet 1.5 mg PO QHS restless leg s yndrome 08/18/23 11/27/24 History polysaccharide iron complex 150 mg 150 mg PO DAILY sup plement 30 days 10/12/23 12/26/24 Rx iron capsule (Ferrex) #30 caps acetaminophen 500 mg tablet 1,000 mg PO Q6H PRN pain 0 02/14/24 Unknown History arformoterol 15 mcg/2 mL solution 15 mcg inhalation BI D breathing 02/14/24 01/01/25 History for nebulization spironolactone 25 mg tablet 25 mg PO DAILY diuretic 11/28/24 History cholecalciferol (vitamin D3) 125 125 mcg PO DAILY 30 d ays #30 caps 06/08/24 11/28/24 Rx mcg (5,000 unit) capsule furosemide 40 mg tablet 40 mg PO BID FLUID RETENTION 09/24/24 11/28/24 History pantoprazole 40 mg tablet,delayed 40 mg PO BID reflux 09/24/24 01/01/25 History release budesonide 0.5 mg/2 mL suspension 0.5 mg inhalation BI D breathing 11/28/24 01/01/25 History for nebulization carvedilol 25 mg tablet 25 mg PO BID 11/28/24 History magnesium oxide 400 mg PO DAILY 11/28/24 History potassium chloride 20 mEq/15 mL 20 meq PO DAILY 11/28/24 History oral liquid cetirizine 10 mg tablet (24Hour 10 mg PO DAILY 5 Unknown History Allergy) dicyclomine 10 mg capsule 10 mg PO BID #20 caps Unknown Rx peg 3350-electrolytes 236 240 ml PO Q10M #4,000 mL 10/09 Unknown Rx gram-22.74 gram-6.74 gram-5.86 gram solution (Golytely) duloxetine 60 mg capsule,delayed 60 mg PO DAILY 01/01/25 History release Allergy/AdvReac Type Severity Reaction Status Date / Time lisinopril Allergy edema Verified 12/27/24 15:21 aspirin AdvReac Upset Verified 12/27/24 15:21 Stomach Family History Mother Heart disease Surgical History History of thyroid surgery History of carotid angioplasty History of kidney stones History of basal cell carcinoma excision History of total hysterectomy Social History household members: none housing: house Smoking Status: Former smoker how long ago did patient quit smokin years ago alcohol intake: current alcohol intake frequency: holidays/special occasions only details: rare substance use type: does not use caffeine: Yes Type: coffee Number of servings: 1 ROS Constitutional Constitutional: Denies fatigue, fever(s), poor appetite, weight gain or weight loss Gastrointestinal Gastrointestinal: Denies belching, bloating, change in bowel habits, change in stool character, chewing difficulty, coffee ground emesis, constipation, cramping, diarrhea, dyspepsia, dysphagia, earlysatiety, excessive flatus, fecalincontinence, heartburn, hematemesis, hematochezia, hemorrhoids, loose stools, melena, nausea, odynophagia, rectal bleeding, tenesmus, vomiting or weight changes Vital Signs Vital Signs Vital Signs: 01/01/25 14:13 01/01/25 14:13 Temperature 98 F Temperature Source Temporal Pulse Rate 70 Respiratory Rate 16 Respiratory Pattern Normal Blood Pressure 144/40 H Blood Pressure Mean 74 Blood Pressure Source Monitor Blood Pressure Position Semi-Fowlers Blood Pressure Location Left Arm Pulse Ox 100 Oxygen Delivery Method Nasal Cannula Oxygen Flow Rate (L/min) 2 Weight Weight: 136 lb 10.986 oz Body Mass Index (BMI) 25.0 Physical Exam Const alert, oriented x3, no apparent distress and healthy appearing General Appearance: cooperative GI normal to inspection, nondistended, normoactive bowel sounds, soft to palpation,non-tender and non-distended Percussion: normal to percussion Rectal Exam: deferred Assessment & Plan Assessment/Plan (1) Anemia: (2) GI bleed: PLAN: Assessment and Plan Assessment and Plan (1) GI (gastrointestinal bleed): Status: Acute Plan: Dick is an 89 yo female who established with BGI previously for difficulty swallowing. She is heretoday for ED f/u after presenting to the ED 6.5.25 with BRBPR and abd pain. Hemoglobin was stable at 12.2 which was improved from prior.CT showing thickening of the colon more in the rectosigmoid colon and no acute bleeding. Pt was discharged with close GI f/u. Today she continues to have LLQ abd pain but no further episodes of bleeding. I have ordered repeat CBC to monitor her hgb. She will undergo colonoscopy in the next 1-2 weeks for further evaluation. I have also ordered stool testing for infection or inflammation. -Colonoscopy -Stool testing -CBC -f/u after procedure (2) Colitis: Status: Acute (3) Diarrhea: Status: Resolved Qualifiers: Diarrhea type: unspecified type Qualified Code(s): R19.7 - Diarrhea, unspecified Orders: Orders CBC W/Diff, Automated Today D64.9 - Anemia, unspecified ENTERIC PATHOGEN PANEL STOOL Today K52.9 - Noninfective gastroenteritis and colitis, unspecified, K58.9 - Irritable bowel syndrome, unspecified, K92.2 - Gastrointestinal hemorrhage, unspecified, R19.7 - Diarrhea, unspecified Giardia Lamblia, Stool EIA Today K52.9 - Noninfective gastroenteritis and colitis, unspecified, K92.2 - Gastrointestinal hemorrhage, unspecified, R19.7 - Diarrhea, unspecified Ova and Parasites [id number] Today K52.9 - Noninfective gastroenteritis and colitis, unspecified, K58.9 -Irritable bowel syndrome, unspecified, K92.2 - Gastrointestinal hemorrhage, unspecified, R19.7 - Diarrhea, unspecified Calprotectin, Stool Today K52.9 - Noninfective gastroenteritis and colitis, unspecified, K92.2 - Gastrointestinal hemorrhage, unspecified, R19.7 - Diarrhea,unspecified CDIFF (PCR) Today K52.9 - Noninfective gastroenteritis and colitis, unspecified, K92.2 - Gastrointestinal hemorrhage, unspecified, R19.7 - Diarrhea,unspecified Medications: New dicyclomine 10 mg PO BID 20 caps 1RF peg 3350-electrolytes 236-22.74-6.74 -5.86 gram (Golytely) until fecal effluent is clear 240 mL PO Q10M 4,000 mL 0RF 01/01/25 1430 Cosigner Signature (if applicable): CC: Dr. Viktoriya Manzo MD; Teodoro Real DO~ Signed [facility]06-17-2025 [facility] Medical Records Department [address] [place] [id number] History Physical Exam 01/01/25 1428 MR#: [id number] Acct: [id number] Name: DICK ARTIS Rep #: [id number] : 1935 89 From: Teodoro Real DO PCP: Dr. Viktoriya Manzo MD Status:[facility] Location: [place] [address] HPI - General General Date of Admission: 01/01/25 Date of Service: 01/01/25 Chief Complaint: Lower GI bleeding HPI Narrative DICK ARTIS, is a 89 F who presents with lower GI bleeding BGI established in Aug 2023 during hospitalization for NSTEMI and COPD exacerbation. Found to have a down trending hemoglobin and underwent EGD. EGD 3; - LA Grade D erosive esophagitis with bleeding. Treated with a heater probe. - Non-bleeding gastric ulcers with no stigmata of bleeding. Biopsied. - Acute duodenitis. Biopsied EGD 04.19.24; - Abnormal esophageal motility, consistent with aperistalsis. Dilated. - Small hiatal hernia. - Gastric mucosal variant. Biopsied. - A few duodenal polyps. Resected and retrieved. *Start amitriptyline 10 mg daily but discontinued due to side effects. [facility] admission 06.06.24-06.08.24 with severe hypomagnesia, hypocalcemia and diverticulitis Last OV 08.13.24 Pt continues with swallowing issues. Scheduled for EGD with botox EGD 09.27.24; - Achalasia. Injected with botulinum toxin. - No gross lesions in the entire stomach. - No gross lesions in the first portion of the duodenum. - No specimens collected. [facility] ED with two episodes BRBPR over the past week. Pt on Eliquis. CT showing diverticulosis, moderate diffuse thickening of the colon, more prominent in the rectosigmoid colon, probably colitis without evidence of perforation pneumonitis coli. No active bleeding. small hiatal hernia and diffuse thickening of the stomach suggestive of gastritis. OV 12.18.24 Pt continues with abdominal pain. Pain is in the LLQ and a 6/10. She feels constipated this week but last week was having diarrhea. She has had no further episodes of BRBPR. [facility] Medical History (Updated 01/01/25 @ 14:[address] Valerio Friend, DO) GI (gastrointestinal bleed) Rash Back pain Cancer Thyroid disease Ambulates with cane History of renal disease TIA (transient ischemic attack) Acute diverticulitis Wears glasses Wears dentures Arthritis Low iron Anemia High cholesterol Migraine headache Restless legs Difficulty chewing History of diverticulitis Heartburn Gastric reflux Former smoker On home oxygen therapy Shortness of breath on exertion Chronic cough History of edema History of echocardiogram History of stress test Cardiology follow-up encounter Hypertension Chronic hypoxic respiratory failure History of diabetes mellitus History of hypertension Diverticulitis History of chronic heart failure History of COPD COPD (chronic obstructive pulmonary disease) Anemia Chronic heart failure with preserved ejection fraction (HFpEF) Hyperlipidemia Right lumbar radiculopathy CKD (chronic kidney disease), stage III Hypertension Chronic kidney disease PAD (peripheral artery disease) Renal cyst History of TIA (transient ischemic attack) Bilateral carotid artery stenosis Claudication RLS (restless legs syndrome) Diverticulosis TIA (transient ischemic attack) Vertigo Leg edema Dyslipidemia Home Medications ???Medication ???Instructions ???Recorded ???Last Taken ???Type atorvastatin 40 mg tablet 40 mg PO QHS cholesterol 02/22/16 11/27/24 History clopidogrel 75 mg tablet 75 mg PO DAILY BLOOD THINNER 02/2112/26/24 History albuterol sulfate 90 mcg/actuation 2 puff inhalation Q4H PRN 09/27/24 History aerosol inhaler shortness of breath or wheezing pramipexole 1.5 mg tablet 1.5 mg PO QHS restless leg syndrom e 08/18/23 11/27/24 History polysaccharide iron complex 150 mg 150 mg PO DAILY supplement 30 da ys 10/12/23 12/26/24 Rx iron capsule (Ferrex) #30 caps acetaminophen 500 mg tablet 1,000 mg PO Q6H PRN pain 02/14/24 Unknown History arformoterol 15 mcg/2 mL solution 15 mcg inhalation BID breathing 0 02/14/24 01/01/25 History for nebulization spironolactone 25 mg tablet 25 mg PO DAILY diuretic 02/14/24 0 11/28/24 History cholecalciferol (vitamin D3) 125 125 mcg PO DAILY 30 days #30 caps 06/08/24 11/28/24 Rx mcg (5,000 unit) capsule furosemide 40 mg tablet 40 mg PO BID FLUID RETENTION 09/2411/28/24 History pantoprazole 40 mg tablet,delayed 40 mg PO BID reflux 09/24/2412/16 History release budesonide 0.5 mg/2 mL suspension 0.5 mg inhalation BID breathing 0 11/28/24 01/01/25 History for nebulization carvedilol 25 mg tablet 25 mg PO BID 11/28/24 01/01/25 His tory magnesium oxide 400 mg PO DAILY 11/28/24 11/28/24 History potassium chloride 20 mEq/15 mL 20 meq PO PARKER (more content not included)... [facility]06-04-2025 History of Present illness Narrative* Ana Paige RDMS - 12/19/2024 1:00 PM EDT Radiology Service Progress Note PATIENT NAME: Dick Artis DATE OF SERVICE: December 19, 2024 TIME: 1:34 PM PATIENT IDENTITY VERIFICATION COMPLETED USING TWO (2) IDENTIFIERS: Name and Date of confirmedby patient verbally. FALL SCREENING: Has the patient had 2 falls in the last year or 1 fall with injury or currently using an Ambulatory Assistive Device (Walker, Cane, Wheelchair, Crutches, etc.)? No PATIENT GENDER DATA: Assigned female at . status: : No status:NO. PATIENT RELEVANT IMPLANT DATA REVIEWED: Not Applicable PATIENT PRESENTS WITH AN IMPLANTABLE OR ATTACHED ELECTROPHYSIOLOGY SCIENTIST: No RADIOLOGY DEPARTMENT: Ultrasound PERIPHERAL IV DATA: Not applicable SIGNED BY: Ana Paige RDMS December 19, 2024 1:34 PM [facility] NoteHNO ID: [id number] Author: ANA PAIGE RDMS Service: ? Author Type: Technologist Type: Progress Notes Filed: 12/19/2024 13:34 Note Text: Radiology Service Progress Note PATIENT NAME: Dick Artis DATE OF SERVICE: December 19, 2024 TIME: 1:34 PM PATIENT IDENTITY VERIFICATION COMPLETED USING TWO (2) IDENTIFIERS: Name and Date of confirmed by patient verbally. FALL SCREENING: Has the patient had 2 falls in the last year or 1 fall with injury or currently using an Ambulatory Assistive Device (Walker, Cane, Wheelchair, Crutches, etc.)? No PATIENT GENDER DATA: Assigned female at . status: : No status: NO. PATIENT RELEVANT IMPLANT DATA REVIEWED: Not Applicable PATIENT PRESENTS WITH AN IMPLANTABLE OR ATTACHED ELECTROPHYSIOLOGY SCIENTIST: No RADIOLOGY DEPARTMENT: Ultrasound PERIPHERAL IV DATA: Not applicable SIGNED BY: Ana Paige RDMS December 19, 2024 1:34 [facility]06-02-2025 Discharge summary [facility] Medical Records Department [address] [place] [id number] Emergency Department Summary 12/17/24 MR#: [id number] Acct: [id number] Name: DICK ARTIS Rep #:[id number] : 1935 89 From: Tobias Garcia DO PCP: Dr. Viktoriya Manzo MD Status:REG E R Location: ED [facility] History of Present Illness Chief Complaint: GI Bleed Informant: patient and family Narrative Narrative: Patient is a 89-year-old female with past medical history of hypertension hyperlipidemia chronic kidney disease and COPD who wears nasal cannula oxygen atbaseline. She states that she went to bed last night and then awoke around 3 inthe morning with sensation she had to use the restroom and then noticed that there was blood in her pants and up the lower portion of her back. She states she is on Plavix but denies Eliquis Coumadin or Xarelto use or history of bleeding disorder. She states she does have a mild amount of lower abdominal pain but otherwise does not have fever or dysuria. She states that she had a similar event happen 1 to 2 weeks ago but that the symptoms resolved and she didnotcome to the hospital for evaluation. She reports it has been multiple yearssince her last colonoscopy. However this evening as the bout of GI bleeding occurred while sleeping and it is a repeat eventshe was brought in for evaluation [facility] Medical History History of chronic heart failure Cancer Thyroid disease Ambulates with cane History of renal disease TIA (transient ischemic attack) Acute diverticulitis Wears glasses Wears dentures Arthritis Low iron Anemia High cholesterol Migraine headache Restless legs Difficulty chewing History of diverticulitis Heartburn Gastric reflux Former smoker On home oxygen therapy Shortness of breath on exertion Chronic cough History of edema History of echocardiogram History of stress test Cardiology follow-up encounter Hypertension Chronic hypoxic respiratory failure History of diabetes mellitus History of hypertension Diverticulitis History of COPD COPD (chronic obstructive pulmonary disease) Anemia Chronic heart failure with preserved ejection fraction (HFpEF) Hyperlipidemia Right lumbar radiculopathy CKD (chronic kidney disease), stage III Hypertension Chronic kidney disease PAD (peripheral artery disease) Renal cyst History of TIA (transient ischemic attack) Bilateral carotid artery stenosis Claudication RLS (restless legs syndrome) Diverticulosis TIA (transient ischemic attack) Vertigo Leg edema Dyslipidemia Home Medications ?Medication ?Instructions ?Recorded ?Last Taken ?Type atorvastatin 40 mg tablet 40 mg PO QHS cholesterol 01/3011/27/24 History clopidogrel 75 mg tablet 75 mg PO DAILY BLOOD THINNER 02/22/16 11/28/24 History albuterol sulfate 90 mcg/actuation 2 puff inhalation Q 4H PRN 03/16/18 09/27/24 History aerosol inhaler shortness of breath or wheez ing pramipexole 1.5 mg tablet 1.5 mg PO QHS restless leg s yndrome 08/18/23 11/27/24 History polysaccharide iron complex 150 mg 150 mg PO DAILY sup plement 30 days 10/12/23 11/28/24 Rx iron capsule (Ferrex) #30 caps acetaminophen 500 mg tablet 1,000 mg PO Q6H PRN pain 0 02/14/24 Unknown History arformoterol 15 mcg/2 mL solution 15 mcg inhalation BI D breathing 02/14/24 11/28/24 History for nebulization duloxetine 20 mg capsule,delayed 60 mg PO DAILY mental health 02/14/24 11/28/24 History release spironolactone 25 mg tablet 25 mg PO DAILY diuretic 11/28/24 History cholecalciferol (vitamin D3) 125 125 mcg PO DAILY 30 d ays #30 caps 06/08/24 11/28/24 Rx mcg (5,000 unit) capsule furosemide 40 mg tablet 40 mg PO BID FLUID RETENTION 09/24/24 11/28/24 History pantoprazole 40 mg tablet,delayed 40 mg PO BID reflux 09/24/24 11/28/24 History release budesonide 0.5 mg/2 mL suspension 0.5 mg inhalation BI D breathing 11/28/24 11/28/24 History for nebulization carvedilol 25 mg tablet 25 mg PO BID 11/28/24 History magnesium oxide 400 mg PO DAILY 11/28/24 History potassium chloride 20 mEq/15 mL 20 meq PO DAILY 11/28/24 History oral liquid cetirizine 10 mg tablet (24Hour 10 mg PO DAILY 5 Unknown History Allergy) Allergy/AdvReac Type Severity Reaction Status Date / Time lisinopril Allergy edema Verified 12/17/24 04:43 aspirin AdvReac Upset Verified 12/17/24 04:43 Stomach Family History Mother Heart disease Surgical History History of thyroid surgery History of carotid angioplasty History of kidney stones History of basal cell carcinoma excision History of total hysterectomy Social History household members: none housing: house Smoking Status: Former smoker how long ago did patient quit smokin years ago alcohol intake: current alcohol intake frequency: holidays/special occasions only details: rare substance use type: does not use caffeine: Yes Type: coffee Number of servings: 1 ROS ROS ED Constitutional Constitutional ED: Denies chills or fever(s) ENT ENT ED: Reports rhinorrhea Cardiovascular Cardiovascular: Denies chest pain, palpitations or racing heartbeat Respiratory/Chest Respiratory/Chest: Reports cough; Denies dyspnea Gastrointestinal Gastrointestinal: Reports abdominal pain and melena; Denies diarrhea, nausea or vomiting Genitourinary Genitourinary ED: Denies dysuria Musculoskeletal Musculoskeletal: Denies back pain or myalgias Integumentary Denies rash Neurologic Neurologic: Denies headache(s) Hematologic/Lymphatic Hematologic/Lymphatic: Reports easy bleeding and easy bruising EXAM Physical Exam Const Vital Signs: 12/17/24 04:44 12/17/24 06:41 Temperature 97.7 F L Temperature Source Oral Pulse Rate 81 71 Respiratory Rate 20 H 19 H Blood Pressure 170/73 H 141/86 H Blood Pressure Mean 105 104 Pulse Ox 96 98 Oxygen Delivery Method Nasal Cannula Nasal Cannula Fraction of Inspired Oxygen (FIO2) 2 Positive well nourished, well developed and obese General Appearance ED: well developed; Negative for pallor Nutritional Appearance: obese HEENT HEENT Narrative: Normocephalic atraumatic There is cobblestoning noted in the posterior pharynx consistent with sinus drainage without airwayedema or compromise No secondary findings in the posterior pharynx to suggest infection Eyes PERRL and EOMs intact bilaterally General Eye ED: Negative for pale conjunctiva or scleral icterus Neck supple Neck Narrative: No nuchal rigidity or meningeal signs Resp normal respiratory effort Resp Narrative: Breath sounds are diminished throughout with diffuse rhonchi No nasal flaring retractions tachypnea or accessory muscle use Cardio regular rate and regular rhythm Rate: other Other Details: Radial and carotid pulses are equal and symmetric GI non-distended and no masses GI Narrative: Abdomen is soft and nondistended with hyperactive bowel sounds. There is pain with palpation diffusely along the lower abdomen without voluntary guarding or rigidity or pulsatile mass No peritoneal signs Auscultation: normoactive bowel sounds Palpation: soft Narrative: Rectal exam shows nonbleeding nonthrombosed external hemorrhoids No anal fissure is noted No internal masses palpated Rectal tone is normal Stool is mucousy brown in color with streaks of bright red blood and is Hemoccult positive Extremity Extremity Narrative: +2-3 pitting edema to the bilateral lower extremities that is equal and symmetric Neuro oriented x3, CN's II-XII intact bilaterally and no sensory deficits noted Sensorium / Orientation: alert Motor Exam: strength 5/5 throughout Psych mental status grossly normal Skin no rashes or lesions noted Skin Narrative: Capillary refill is less than 3 seconds General Skin Exam: Negative for jaundice or pallor MDM MDM MDM Narrative Medical decision making narrative: Patient arrived to the ER hypertensive otherwise with stable vitals. She reported waking from sleepwith bright red blood in her pants and up her back. There is concern for ruptured internal or external hemorrhoid versus anal fissure versus diverticular bleeding versus ischemic colitis. Patient also could have acute blood loss anemia. Laboratory studies show that her hemoglobintoday is 12.2 whichis actually improved from November 28 when it was approximately 10. Platelet count is also increased from 131-237. In order to check for a potential cause of her GI bleed a CTA was obtained. This showed extensive colonic diverticulosis without obvious diverticulitis. There was no obvious signs of activebleeding either. And she had intestinal inflammation consistentwith colitis. The patient had no further episodes of bleeding while in the ER. She remains hemodynamically stable. I discussed the case with gastroenterology as patient reports she had a similar event 1 to 2 weeks ago. At this time as she is hemodynamically stable without need for blood transfusion and no further episodes of bleeding in the ER they feel that she can follow-up as an outpatientand there is no need for admission and emergent colonoscopy. This plan of care was discussed with patient and family and they are agreeable to it and thereforeshould be discharged at this time Please note her urine sample did show +2 bacteria but there are no white blood cells present in thesample and she does not have dysuria and therefore I feel this is most likely normal ting and there is no need for urine culture or antibiotics. History & Record Review Discussion w/independent historian: Patient and Family Lab Data Attestation: I reviewed the patient's lab results. Labs: Laboratory Results - last 24 hr 12/17/24 12/17/24 04:56 05:20 WBC 7.9 RBC 3.86 L Hgb 12.2 Hct 38.3 MCV 99.2 H MCH 31.6 MCHC 31.9 L RDW Std Deviation 50.2 H RDW Coeff of Ha 13.7 Plt Count 269 MPV 10.2 Immature Gran % (Auto) 0.900 Neut % (Auto) 71.2 H Lymph % (Auto) 14.4 L [place] % (Auto) 12.3 H Eos % (Auto) 0.9 Baso % (Auto) 0.3 Absolute Neuts (auto) 5.6 Absolute Lymphs (auto) 1.14 Nucleated RBC % 0 PT 13.0 INR 1.0 APTT 24.3 Sodium 144 Potassium 4.0 Chloride 98 Carbon Dioxide 32.5 H Anion Gap 13 BUN 52 H Creatinine 1.45 H Estim Creat Clear Calc 23.74 L Est GFR (MDRD) Non-Af 35 L BUN/Creatinine Ratio 35.9 H Glucose 110 H Calcium 9.0 Total Bilirubin 0.39 Direct Bilirubin 0.14 AST 20 ALT 11 Alkaline Phosphatase 75 Total Protein 7.0 Albumin 3.8 Globulin 3.1 Urine Color Yellow Urine Clarity Clear Urine pH 6.5 Ur Specific [place] 1.010 Urine Protein 15 H Urine Glucose (UA) Normal Urine Ketones Negative Urine Occult Blood 250 H Urine Nitrite Negative Urine Bilirubin Negative Urine Urobilinogen Normal Ur Leukocyte Esterase 100 H Urine RBC 5-10 SEEN Urine WBC 0-5 SEEN Ur Squamous Epith Cells 0-5 SEEN Urine Bacteria 2+ Urine Mucus 0 SEEN Radiography Diagnostic Testing: Clinical Impression(s) from Imaging Studies Abdomen/Pelvis CTA 12/17/24 05:04 IMPRESSION: 1. Diffuse colonic diverticulosis. 2. Moderate diffuse thickening of the colon, more prominent in the rectosigmoid colon, probably colitis without evidence of perforation or pneumatosis coli. 3. No CT evidence of active bleeding during the time of the exam. 4. Prior hysterectomy. 5. 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 6. Moderate chronic right renal atrophy. 7. Unchanged scattered right renal simple cysts with the largest measuring 4.3 cm. 8. Unchanged nodularity of the left adrenal gland. 9. Atherosclerotic, tortuous ectatic abdominal aorta. 10. Mild stenosis of the origins of the celiac, superior and inferior mesentericarteries. 11. Well-defined homogeneously enhancing 1.4 cm hemangioma in the segment 4 of the liver. 12. Unchanged small sliding hiatal hernia. 13. Diffuse thickening of the stomach suggestive of gastritis. 14. Mild osteopenia. 15. Mild diffuse spondylosis. 16. Mild chronic compression deformity of L1 vertebral body. Reading Location: [place] [address] Chest X-Ray 12/17/24 06:14 IMPRESSION: Bilateral basilar atelectatic pulmonary changes. Reading Location: [place] [address] 2 view chest x-ray as interpreted by the emergency medicine physician reveals bibasilar atelectasiswithout acute infiltrate pneumothorax or pleural effusion Management Discussion w/another healthcare provider: [employer] Discharge Plan Triage Chief Complaint: GI Bleed ED Provider: Tobias Garcia Dx/Rx/DC Orders Clinical Impression: Diverticulosis, Colitis, GI (gastrointestinal bleed), Hypertension, Hyperlipidemia, COPD (chronic obstructive pulmonary disease) Instructions: GI Bleeding Causes and Tests, ED Understanding Colitis, ED Diverticulosis Prescriptions: No Action acetaminophen 500 mg tablet 1,000 mg PO Q6H PRN (Reason: pain) arformoterol 15 mcg/2 mL solution for nebulization 15 mcg inhalation BID duloxetine 20 mg capsule,delayed release(DR/EC) 60 mg PO DAILY spironolactone 25 mg tablet 25 mg PO DAILY atorvastatin 40 MG tablet 40 mg PO QHS clopidogrel 75 MG tablet 75 mg PO DAILY albuterol sulfate 90 mcg/actuation HFA aerosol inhaler 2 puff INHALATION Q4H PRN (Reason: shortness of breath or wheezing) pramipexole 1.5 mg tablet 1.5 mg PO QHS cholecalciferol (vitamin D3) 125 mcg (5,000 unit) Capsule 125 mcg PO DAILY 30 Days Qty: 30 0RF carvedilol 25 mg tablet 25 mg PO BID magnesium oxide 400 mg magnesium capsule 400 mg PO DAILY potassium chloride 20 mEq/15 mL liquid 20 meq PO DAILY budesonide 0.5 mg/2 mL suspension for nebulization 0.5 mg inhalation BID polysaccharide iron complex [Ferrex 150] 150 mg iron Capsule 150 mg PO DAILY 30 Days Qty: 30 0RF furosemide 40 mg tablet 40 mg PO BID pantoprazole 40 mg Tablet,Delayed Release (Dr/Ec) 40 mg PO BID cetirizine [24Hour Allergy] 10 mg tablet 10 mg PO DAILY Primary Care Provider: Viktoriya Manzo Referrals: Viktoriya Manzo MD [Primary Care Provider] - Teodoro Real DO [Med Staff - Active Staff] - (Colonic diverticulosis/colitis/GI bleed) Activity Restrictions/Additional Instructions: Please contact Dr. Real's office this morning as they should be able to schedule an appointment for you tomorrow or later this week. If you develop severe abdominal pain a fever of 100.4 or higher or have persistent bleeding from your rectum or any further concerns please return to the ER for repeat evaluation. Print Language: Greenlandic Disposition Disposition: Home, Self Care What to do if you have Problems For any increased pain, shortness of breath, bleeding, nausea or vomiting, chestpain, or any unexpected problems, contact your Primary Care Provider. Call [facility] ([phone]) or report tothe closest Emergency Room. Call 911 if necessary. 12/17/24 07 Cosigner Signature (if applicable): CC: Dr. Viktoriya Manzo MD ~ Signed [facility]06-02-2025 Radiology Diagnostic study note [facility] Imaging Services [address] [place], [place] [id number] CTA Abd/Pelvis W/WO Contrast MR#: [id number] Acct: [id number] Name: DICK ARTIS Rep #: [id number] : 1935 F 89 From: Leticia Mederos MD PCP: Dr. Viktoriya Manzo MD Status: REG E R Study:CTA Abd/Pelvis W/WO Contrast Date of Ex am: 12/17/24 Exam# [id number] Ordering Dr: Nela Garcia DO PROCEDURE: CTA ABD/PELVIS W/WO CONTRAST 12/17/2024 REASON FOR EXAM: GI BLEED WITH LLQ PAIN TECHNIQUE: CTA imaging of the abdomen and pelvis with intravenous contrast. Multiplanar andmultisequence images were obtained. CONTRAST: Isovue-350 VOLUME: 100 mL Gauge IV One or more dose reduction techniques were used (e.g., Automated exposure control, adjustment of the mA and/or kV according to patient size, use of iterative reconstruction technique). RADIATION DOSE SUMMARY: CTDlvol: 11.9 mGy DLP: 539 mGycm COMPARISON: 11/28/2024. FINDINGS: Diffuse colonic diverticulosis. Moderate diffuse thickening of the colon, more prominent in the rectosigmoid colon, probably colitis without evidence of perforation or pneumatosis coli. No CT evidence of active bleeding during the time of the exam. Prior hysterectomy. 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 Moderate chronic right renal atrophy. Unchanged scattered right renal simple cysts with the largest measuring 4.3 cm. Unchanged nodularity of the left adrenal gland. Atherosclerotic, tortuous ectatic abdominal aorta. Mild stenosis of the origins of the celiac, superior and inferior mesenteric arteries. Well-defined homogeneously enhancing 1.4 cm hemangioma in the segment 4 of the liver. Unchanged small sliding hiatal hernia. Diffuse thickening of the stomach suggestive of gastritis. Mild osteopenia. Mild diffuse spondylosis. Mild chronic compression deformity of L1 vertebral body. The visualized lung bases are unremarkable. Normal remaining liver. Normal gallbladder and extrahepatic biliary system. Normal spleen. Normal pancreas. Normal bilateral adrenal glands. Normal size of the right kidney. There is no right renal mass. There are no right renal calculi. There is no right hydronephrosis. Normal visualized right ureter. Normal size of the left kidney. There is no left renal mass. There are no leftrenal calculi. There is no left hydronephrosis. Normal visualized left ureter. Normal small intestine. The appendix is visualized and appears normal. There is no demonstrated peritoneal fluid. Normal inferior vena cava. Normal retroperitoneum. Normal urinary bladder. There is no pelvic mass lesion or lymphadenopathy. There is no pelvic fluid. CT/CTA Abd/Pelvis W/WO Contrast IMPRESSION: 1. Diffuse colonic diverticulosis. 2. Moderate diffuse thickening of the colon, more prominent in the rectosigmoid colon, probably colitis without evidence of perforation or pneumatosis coli. 3. No CT evidence of active bleeding during the time of the exam. 4. Prior hysterectomy. 5. 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 6. Moderate chronic right renal atrophy. 7. Unchanged scattered right renal simple cysts with the largest measuring 4.3 cm. 8. Unchanged nodularity of the left adrenal gland. 9. Atherosclerotic, tortuous ectatic abdominal aorta. 10. Mild stenosis of the origins of the celiac, superior and inferior mesentericarteries. 11. Well-defined homogeneously enhancing 1.4 cm hemangioma in the segment 4 of the liver. 12. Unchanged small sliding hiatal hernia. 13. Diffuse thickening of the stomach suggestive of gastritis. 14. Mild osteopenia. 15. Mild diffuse spondylosis. 16. Mild chronic compression deformity of L1 vertebral body. Reading Location: [place] [address] CC: Dr. Viktoriya Manzo MD; Tobias Garcia DO ~ 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: Signed [facility]06-02-2025 Radiology Diagnostic study note [facility] Imaging Services [address] [place] [id number] Chest PA and Lateral MR#: [id number] Acct: [id number] Name: DICK ARTIS Rep #: [id number] : 1935 F 89 From: Leticia Mederos MD PCP: Dr. Viktoriya Manzo MD Status: REG E R Study:Chest PA and Lateral Date of Exam: 12/17/24 Exam# [id number] Ordering Dr: Nela Garcia DO PROCEDURE: CHEST PA AND LATERAL 12/17/2024 REASON FOR EXAM: COUGH TECHNIQUE: Frontal and lateral views of the chest. COMPARISON: None. FINDINGS: Mild bilateral basilar atelectatic pulmonary changes. Moderate benign chronic compression deformities of the lower thoracic vertebral bodies with increased dorsal kyphosis, chronic finding. There is no demonstrated pleural abnormality. Normal heart and pericardium. Normal mediastinum and yamilka. Normal visualized pulmonary arteries. Normal visualized aortic arch and descending thoracic aorta. Normal visualized thoracic spine. Normal visualized ribs, clavicles, and shoulders. There is no demonstrated abnormality of the visualized soft tissue structures ofthe upper abdomen. RAD/Chest PA and Lateral IMPRESSION: Bilateral basilar atelectatic pulmonary changes. [facility] CC: Dr. Viktoriya Manzo MD; DO Michelle Lomax 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: Signed [facility]06-01-2025 Hospital Discharge instructions Additional Instructions Please contact Dr. Real's office this morning as they should be able to schedule an appointment for you tomorrow or later this week. If you develop severe abdominal pain a fever of 100.4 or higher or have persistent bleeding from your rectum or any further concerns please return to the ER for repeat evaluation.[facility] Work Phone: [phone] Procedure note [facility] Pulmonary Services/Neurology [address] [place] [address] MR#: [id number] Acct: [id number] Name: DICK ARTIS Rep #:[id number] : 1935 89 From: Lisa Zapien MD Referring Dr: Tona Kim atus: REG CLI Location: PSN Date: 12/05/24 Sex: F C NCS and/or EMG Patient Report Ordering Doctor: Tona Kim DATE OF SERVICE: 12/05/24 Dick presents with pain in the right hand and arm. Electrodiagnostic findings: Right median motor nerve demonstrates prolonged latency with normal amplitude and reduced conduction velocity. Normal right ulnar motor response, including conduction across the elbow. Normal right median ulnar F?wave. Prolonged right median sensory latency at the wrist.Needle EMG testing was performed the right upper limb. All muscles tested showed no evidence of denervation with normal motor unit action potentials. Electrodiagnostic impression: This is an abnormal study in the right upper limb 1. Electrodiagnostic findings suggestive of right-sided median mononeuropathy. This consistent witha mild right carpal tunnel syndrome. 2. No electrodiagnostic evidence is noted for cervical radiculopathy. Multi Select Codes Neurology Neurology Interp Codes: 11214-14 Musc test done w/n test comp (interp) and 33907-43 Nrv cndj tst 5-6 studies (interp) 12/05/24 1046 D> Date _ Lisa Zapien MD CC: Dr. Lisa Zapien MD; Dr. Viktoriya Manzo MD; INDIRA Salgado ~ Date Dictated: 12/05/241043 Date Transcribed: 12/05/241043 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: RAY Carbajal [facility]05-16-2025 History of Present illness Narrative* Alina Delvalle MD - 11/30/2024 2:45 PM EDT Images from the original note were not included. . Respiratory [place] Note Patient name: Dick Artis PCP: Viktoriya Manzo MD CC: Follow up COPD HPI: Dick Artis 89 year old female former 50 pack year smoker, quitting in 2017 with PMH significant for HTN, TIA, PAD, CKD, COPD, atelectasis. Inhaled therapy consists of Brovana, budesonide and albuterol. Having current issues with lower quadrant pain and constipation. Evaluated in ED. Being treated for diverticulitis although abdominal CT was unremarkable. From a pulmonary standpoint she has been about the same. Main symptom is RAPHAEL. No chronic cough, wheezing or chest pain. No recent URI or exacerbation of her COPD. She is inquiring about a POC. Mainly would like something that is less heavy than her small tank. The size of POC she would need is no grounds manager than her tank. PAST MEDICAL HISTORY Diagnosis Date Basal cell carcinoma Carotid stenosis CEA left Chronic hypoxemic respiratory failure (HCC) CKD (chronic kidney disease) stage 3, GFR 30-59 ml/min ([facility]) 07/30/2018 COPD (chronic obstructive pulmonary disease) ([facility]) Diastolic heart failure ([facility]) Diverticulosis of colon (without mention of hemorrhage) Diverticulosis Hypertension Rolly Smith MD NSTEMI (non-ST elevated myocardial infarction) ([facility]) Osteoporosis, unspecified Personal history of colonic polyps Colon polyps Restless legs syndrome (RLS) Spinal stenosis TIA (transient ischemic attack) 2008 Plavix Type 2 diabetes mellitus with hyperglycemia, without long-term current use of insulin ([facility]) 10/19/2023 ALLERGIES Allergen Reactions Amlodipine Swelling Lower leg edema. Aspirin Unknown Lisinopril Cough Requip [Ropinirole] Other: See Comments Very anxious ciprofloxacin HCl (CIPRO) 500 mg tablet Take 500 mg by mouth once daily. metroNIDAZOLE (FLAGYL) 500 mg tablet Take 500 mg by mouth one time only. albuterol HFA (VENTOLIN HFA) 90 mcg/actuation inhaler Inhale 2 Puffs as instructed every 4 hours asneeded for wheezing/shortness of breath. May take 2 puffs prior to exercise potassium chloride 20 mEq/15 mL solution Take 15 mL by mouth once daily. cholecalciferol, vitamin D3, (VITAMIN D3 ORAL) Take 1 tablet by mouth once daily. iron polysaccharide complex (FERREX-150) 150 mg iron capsule Take 1 capsule by mouth once daily. DULoxetine (CYMBALTA) 60 mg capsule Take 1 capsule by mouth once daily. clopidogrel (PLAVIX) 75 mg tablet Take 1 tablet by mouth once daily. atorvastatin (LIPITOR) 40 mg tablet Take 1 tablet by mouth once daily. arformoterol (BROVANA) 15 mcg/2 mL nebulizer solution Inhale 2 mL as instructed every 12 hours. budesonide (PULMICORT) 0.5 mg/2 mL nebulizer solution Use 2 mL via nebulizer two times a day. carvedilol (COREG) 25 mg tablet Take 1 tablet by mouth two times a day with meals. furosemide (LASIX) 40 mg tablet Take 1 tablet by mouth two times a day. pantoprazole DR (PROTONIX) 40 mg tablet Take 1 tablet by mouth two times a day. pramipexole (MIRAPEX) 1.5 mg tablet Take 1 tablet by mouth daily at bedtime. spironolactone (ALDACTONE) 25 mg tablet Take 1 tablet by mouth once daily. magnesium oxide (MAG-OX) 400 mg (241.3 mg magnesium) tablet Take 1 tablet by mouth once daily. OXYGEN, HOME THERAPY, 2 L/min by Nasal Cannula route as directed. 4L/min at night acetaminophen (TYLENOL) 500 mg tablet Take 1,000 mg by mouth every 6 hours as needed for pain (EVERY 6 HOURS NEEDED FOR PAIN). Social History Tobacco Use Smoking status: Former Current packs/day: 0.00 Average packs/day: 1 pack/day for 53.1 years (53.1 ttl pk-yrs) Types: Cigarettes Start date: 08/11/1963 Quit date: 10/04/2016 Years since quittin.1 Smokeless tobacco: Never Tobacco comments: 10-20 year period in 30-40s when quit. Vaping Use Vaping status: Never Used Substance Use Topics Alcohol use: Not Currently Comment: very seldom Drug use: Never FAMILY HISTORY Problem Relation Age of Onset [...] HYSTERECT W/WO RMVL TUBE OVARY 05/18/1971 Hysterectomy, WILFREDO, LSO carcinoma insitu PMH, Social history, family history and surgical history reviewed and updated in EMR REVIEW OF SYSTEMS: CONSTITUTIONAL: No fevers, chills, nightsweats, unintended weight loss HEENT: Denies nasal congestion/sinus symptoms, allergy problems. CARDIOVASCULAR: No chest pain, palpitations, orthopnea. Edema PULM: See HPI GI: Abdominal pain, constipation. No nausea or vomiting. INTEGUMENTARY: Bruising PHYSICAL EXAMINATION: BP 112/58 Pulse 91 Resp 15 SpO2 92% General Appearance: Elderly female in wheelchair. Skin: Skin color, texture, turgor normal, no suspicious rashes or lesions. Thin Head: Normocephalic, no masses, lesions, tenderness or abnormalities. Oropharynx: No thrush. Neck: No masses or adenopathy. Lungs: Not labored, no wheezes or crackles. Heart: RRR, no murmur. Ext: Edema, no clubbing Assessment/Plan: Severe COPD GOLD stage 3 -Clinically stable -Continue current nebulized medications Chronic hypoxemic respiratory failure -Patient is compliant with and benefits from supplemental oxygen Former cigarette smoker -Former smoker with COPD -Continue abstinence -Not a candidate for lung cancer screening due to age Alina Delvalle MD Respiratory [facility] Alina Delvalle MD Respiratory [facility] NoteHNO ID: [id number] Author: ALINA DELVALLE MD Service: ? Author Type: Physician Type: Progress Notes Filed: 11/30/2024 16:29 Note Text: . Respiratory [facility] Note Patient name: Dick Artis PCP: Viktoriya Manzo MD CC: Follow up COPD HPI: Dick Artis 89 year old female former 50 pack year smoker, quitting in 2017 with PMH significant for HTN, TIA, PAD, CKD, COPD, atelectasis. Inhaled therapy consists of Brovana, budesonide and albuterol. Having current issues with lower quadrant pain and constipation. Evaluated in ED. Being treated for diverticulitis although abdominal CT was unremarkable. From a pulmonary standpoint she has been about the same. Main symptom is RAPHAEL. No chronic cough, wheezing or chest pain. No recent URI or exacerbation of her COPD. She is inquiring about a POC. Mainly would like something that is less heavy than her small tank. The size of POC she would need is no grounds manager than her tank. PAST MEDICAL HISTORY Diagnosis Date Basal cell carcinoma Carotid stenosis CEA left Chronic hypoxemic respiratory failure (HCC) CKD (chronic kidney disease) stage 3, GFR 30-59 ml/min ([facility]) 07/30/2018 COPD (chronic obstructive pulmonary disease) ([facility]) Diastolic heart failure ([facility]) Diverticulosis of colon (without mention of hemorrhage) Diverticulosis Hypertension Rolly Smith MD NSTEMI (non-ST elevated myocardial infarction) ([facility]) Osteoporosis, unspecified Personal history of colonic polyps Colon polyps Restless legs syndrome (RLS) Spinal stenosis TIA (transient ischemic attack) 2008 Plavix Type 2 diabetes mellitus with hyperglycemia, without long-term current use of insulin ([facility]) 10/19/2023 ALLERGIES Allergen Reactions Amlodipine Swelling Lower leg edema. Aspirin Unknown Lisinopril Cough Requip [Ropinirole] Other: See Comments Very anxious ciprofloxacin HCl (CIPRO) 500 mg tablet Take 500 mg by mouth once daily. metroNIDAZOLE (FLAGYL) 500 mg tablet Take 500 mg by mouth one time only. albuterol HFA (VENTOLIN HFA) 90 mcg/actuation inhaler Inhale 2 Puffs as instructed every 4 hours as needed for wheezing/shortness of breath. May take 2 puffs prior to exercise potassium chloride 20 mEq/15 mL solution Take 15 mL by mouth once daily. cholecalciferol, vitamin D3, (VITAMIN D3 ORAL) Take 1 tablet by mouth once daily. iron polysaccharide complex (FERREX-150) 150 mg iron capsule Take 1 capsule by mouth once daily. DULoxetine (CYMBALTA) 60 mg capsule Take 1 capsule by mouth once daily. clopidogrel (PLAVIX) 75 mg tablet Take 1 tablet by mouth once daily. atorvastatin (LIPITOR) 40 mg tablet Take 1 tablet by mouth once daily. arformoterol (BROVANA) 15 mcg/2 mL nebulizer solution Inhale 2 mL as instructed every 12 hours. budesonide (PULMICORT) 0.5 mg/2 mL nebulizer solution Use 2 mL via nebulizer two times a day. carvedilol (COREG) 25 mg tablet Take 1 tablet by mouth two times a day with meals. furosemide (LASIX) 40 mg tablet Take 1 tablet by mouth two times a day. pantoprazole DR (PROTONIX) 40 mg tablet Take 1 tablet by mouth two times a day. pramipexole (MIRAPEX) 1.5 mg tablet Take 1 tablet by mouth daily at bedtime. spironolactone (ALDACTONE) 25 mg tablet Take 1 tablet by mouth once daily. magnesium oxide (MAG-OX) 400 mg (241.3 mg magnesium) tablet Take 1 tablet by mouth once daily. OXYGEN, HOME THERAPY, 2 L/min by Nasal Cannula route as directed. 4L/min at night acetaminophen (TYLENOL) 500 mg tablet Take 1,000 mg by mouth every 6 hours as needed for pain (EVERY 6 HOURS NEEDED FOR PAIN). Social History Tobacco Use Smoking status: Former Current packs/day: 0.00 Average packs/day: 1 pack/day for 53.1 years (53.1 ttl pk-yrs) Types: Cigarettes Start date: 08/11/1963 Quit date: 10/04/2016 Years since quittin.1 Smokeless tobacco: Never Tobacco comments: 10-20 year period in 30-40s when quit. Vaping Use Vaping status: Never Used Substance Use Topics Alcohol use: Not Currently Comment: very seldom Drug use: Never FAMILY HISTORY Problem Relation Age of Onset [...] HYSTERECT W/WO RMVL TUBE OVARY 05/18/1971 Hysterectomy, WILFREDO, LSO carcinoma insitu PMH, Social history, family history and surgical history reviewed and updated in EMR REVIEW OF SYSTEMS: CONSTITUTIONAL: No fevers, chills, nightsweats, unintended weight loss HEENT: Akash (more content not included)...[facility]05-14-2025 Discharge summary [facility] Medical Records Department [address] [place] [address] Emergency Department Summary 11/28/24 MR#: [id number] Acct: [id number] Name: DICK ARTIS Rep #:[id number] : 1935 89 From: Tamanna Disla DO PCP: Dr. Viktoriya Manzo MD Status:REG E R Location: ED HPI HPI - GI History of Present Illness Chief Complaint: Abd Pain Detail of Chief Complaint: Abdominal pain Informant: patient Narrative Narrative: Patient presents to the emergency department with complaint of abdominal pain that started yesterday. Describes the pain as sharp and stabbing to the left lower quadrant. She has history of diverticulitis. She denies fever or chills or sweats. She denies nausea or vomiting. She denies urinary symptoms. She denies blood in her stool or black tarry stool. Patient's had prior hysterectomy. No other abdominal surgeries. Currently rates her pain a 5 or 6 out of 10. [facility] Medical History (Updated 11/28/24 @ 15:[address] Tamanna Disla DO) History of chronic heart failure Cancer Thyroid disease Ambulates with cane History of renal disease TIA (transient ischemic attack) Acute diverticulitis Wears glasses Wears dentures Arthritis Low iron Anemia High cholesterol Migraine headache Restless legs Difficulty chewing History of diverticulitis Heartburn Gastric reflux Former smoker On home oxygen therapy Shortness of breath on exertion Chronic cough History of edema History of echocardiogram History of stress test Cardiology follow-up encounter Hypertension Chronic hypoxic respiratory failure History of diabetes mellitus History of hypertension Diverticulitis History of COPD COPD (chronic obstructive pulmonary disease) Anemia Chronic heart failure with preserved ejection fraction (HFpEF) Hyperlipidemia Right lumbar radiculopathy CKD (chronic kidney disease), stage III Hypertension Chronic kidney disease PAD (peripheral artery disease) Renal cyst History of TIA (transient ischemic attack) Bilateral carotid artery stenosis Claudication RLS (restless legs syndrome) Diverticulosis TIA (transient ischemic attack) Vertigo Leg edema Dyslipidemia Home Medications ?Medication ?Instructions ?Recorded ?Last Taken ?Type atorvastatin 40 mg tablet 40 mg PO QHS cholesterol 01/3011/27/24 History clopidogrel 75 mg tablet 75 mg PO DAILY BLOOD THINNER 02/22/16 11/28/24 History albuterol sulfate 90 mcg/actuation 2 puff inhalation Q 4H PRN 03/16/18 09/27/24 History aerosol inhaler shortness of breath or wheez ing pramipexole 1.5 mg tablet 1.5 mg PO QHS restless leg s yndrome 08/18/23 11/27/24 History polysaccharide iron complex 150 mg 150 mg PO DAILY sup plement 30 days 10/12/23 11/28/24 Rx iron capsule (Ferrex) #30 caps acetaminophen 500 mg tablet 1,000 mg PO Q6H PRN pain 0 02/14/24 Unknown History arformoterol 15 mcg/2 mL solution 15 mcg inhalation BI D breathing 02/14/24 11/28/24 History for nebulization duloxetine 20 mg capsule,delayed 60 mg PO DAILY mental health 02/14/24 11/28/24 History release spironolactone 25 mg tablet 25 mg PO DAILY diuretic 11/28/24 History cholecalciferol (vitamin D3) 125 125 mcg PO DAILY 30 d ays #30 caps 06/08/24 11/28/24 Rx mcg (5,000 unit) capsule furosemide 40 mg tablet 40 mg PO BID FLUID RETENTION 09/24/24 11/28/24 History pantoprazole 40 mg tablet,delayed 40 mg PO BID reflux 09/24/24 11/28/24 History release budesonide 0.5 mg/2 mL suspension 0.5 mg inhalation BI D breathing 11/28/24 11/28/24 History for nebulization carvedilol 25 mg tablet 25 mg PO BID 11/28/24 History magnesium oxide 400 mg PO DAILY 11/28/24 History potassium chloride 20 mEq/15 mL 20 meq PO DAILY 11/28/24 History oral liquid Allergy/AdvReac Type Severity Reaction Status Date / Time lisinopril Allergy edema Verified 11/28/24 13:34 aspirin AdvReac Upset Verified 11/28/24 13:34 Stomach Family History Mother Heart disease Surgical History History of thyroid surgery History of carotid angioplasty History of kidney stones History of basal cell carcinoma excision History of total hysterectomy Social History household members: none housing: house Smoking Status: Former smoker how long ago did patient quit smokin years ago alcohol intake: current alcohol intake frequency: holidays/special occasions only details: rare substance use type: does not use caffeine: Yes Type: coffee Number of servings: 1 ROS ROS ED Review of Systems ROS Unobtainable: other Constitutional Constitutional ED: Reports lethargy; Denies chills, fever(s), sweats or weight loss Eyes Eyes: Denies blurry vision, change in vision or diplopia ENT ENT ED: Denies rhinorrhea or sore throat Cardiovascular Cardiovascular: Denies chest pain, orthopnea or racing heartbeat Respiratory/Chest Respiratory/Chest: Denies cough, dyspnea, dyspnea on exertion, orthopnea or sputum Gastrointestinal Gastrointestinal: Reports abdominal pain; Denies diarrhea, nausea or vomiting Genitourinary Genitourinary ED: Denies dysuria, hematuria or urinary frequency Musculoskeletal Musculoskeletal: Denies arthralgias, back pain, myalgias or neck pain Integumentary Denies abscess, Abrasions or rash Neurologic Neurologic: Denies headache(s) or weakness Psychiatric Psychiatric: Denies anxiety, depression or suicidal thoughts Endocrine Endocrinology: Denies polydipsia, polyphagia or polyuria Hematologic/Lymphatic Hematologic/Lymphatic: Denies easy bleeding, easy bruising or lymphadenopathy Allergic/Immunologic Allergic/Immunologic ED: Denies mouth swelling, tongue swelling or urticaria EXAM Physical Exam Const Vital Signs: 11/28/24 13:32 Temperature 97.4 F L Temperature Source Oral Pulse Rate 79 Respiratory Rate 16 Blood Pressure 118/45 L Blood Pressure Mean 69 Pulse Ox 95 Oxygen Delivery Method Nasal Cannula Oxygen Flow Rate (L/min) 2 Positive well nourished and well developed General Appearance ED: well developed and NAD HEENT Reports TM's clear and moist mucous membranes normocephalic and atraumatic; Negative for trauma or tenderness Tympanic Membrane ED: Yes TM's clear Eyes PERRL and EOMs intact bilaterally General Eye ED: Negative for pale conjunctiva or scleral icterus Neck no lymphadenopathy, supple and no JVD General: Negative for tenderness Chest Wall inspection of chest normal and palpation of chest normal Chest: Negative for tenderness Resp normal respiratory effort and clear to auscultation bilaterally Resp Narrative: Occasional faint expiratory wheezes bilaterally. Effort and Inspection: Negative for respiratory distress or pain with movement Auscultation: Negative for rhonchi, wheezes or diminished lung sounds Cardio regular rate, regular rhythm, S1 normal heart sound, S2 normal heart sound and no murmurs Peripheral Pulses: pulses 2+ throughout GI normal to inspection, nondistended, normoactive bowel sounds, soft to palpation,non-distended and no masses GI Narrative: Tenderness to palpation over the left lower quadrant with some guarding. There is no rebound, rigidity, or peritoneal signs. Back/Spine no CVA tenderness and no thoracic nor lumbar tenderness Extremity normal to inspection General Extremety ED: Negative for edema General Extremity: Negative for edema Neuro oriented x3, CN's II-XII intact bilaterally, no sensory deficits noted and gait normal Sensorium / Orientation: awake, alert, oriented to person, oriented to place andoriented to time Motor Exam: strength 5/5 throughout and strength abnormal Psych mental status grossly normal Skin no rashes or lesions noted and no wounds MDM MDM MDM Narrative Medical decision making narrative: Patient presents with left lower quadrant abdominal pain with history of prior episodes of diverticulitis. She denies any blood in her stool or black tarry stool. Denies significant urinary symptoms.IV line established. CBC with differential obtained showed white count of 8.8 with hemoglobin 10.0 and platelet count of 131. Chemistries unremarkable. BUN 49 and creatinine 1.68. Lactate slightly elevated 2.2. CT scan of the abdomen pelvis performed without contrast given patient's low GFR showed no acute disease process. She had a mass in her right kidney that was stable. Patient is aware of this finding and has an outpatient ultrasound ordered to be evaluated further and states she has a physician following it. Urinalysis ordered and pending. I have low suspicionfor ischemic bowel disease.Care of patient turned over to evening physician awaiting urinalysis results and final disposition. Lab Data Attestation: I reviewed the patient's lab results. Labs: Laboratory Results - last 24 hr 11/28/24 14:00 WBC 8.8 RBC 3.10 L Hgb 10.0 L Hct 30.7 L MCV 99.0 MCH 32.3 H MCHC 32.6 RDW Std Deviation 49.4 H RDW Coeff of Ha 13.5 Plt Count 131 L MPV 10.8 Immature Gran % (Auto) 0.200 Neut % (Auto) 80.7 H Lymph % (Auto) 9.2 L [place] % (Auto) 8.6 Eos % (Auto) 1.1 Baso % (Auto) 0.2 Absolute Neuts (auto) 7.1 Absolute Lymphs (auto) 0.81 L Nucleated RBC % 0 Sodium 138 Potassium 4.0 Chloride 98 Carbon Dioxide 28.4 Anion Gap 12 BUN 49 H Creatinine 1.68 H Estim Creat Clear Calc 21.09 L Est GFR (MDRD) Non-Af 29 L BUN/Creatinine Ratio 29.1 H Glucose 128 H Lactic Acid 2.2 H* Calcium 8.7 Radiography Diagnostic Testing: Clinical Impression(s) from Imaging Studies Abdomen/Pelvis CT 11/28/24 15:01 IMPRESSION: Sigmoid diverticulosis. Questionable tiny gallstone in the fundal portion of the gallbladder versus tinygallstone. Tiny nonobstructive left intrarenal calculi. OVERALL FINAL ASSESSMENT: . LI-RADS is not meant to be used in patients <18 years or patients with cirrhosisdue to congenital hepatic fibrosis or due to vascular disorders, because these patients have a lower chance of developing HCC. Reading Location: [id number] Discharge Plan Triage Chief Complaint: Abd Pain ED Provider: Tamanna Disla Dx/Rx/DC Orders Clinical Impression: Abdominal pain Prescriptions: No Action acetaminophen 500 mg tablet 1,000 mg PO Q6H PRN (Reason: pain) arformoterol 15 mcg/2 mL solution for nebulization 15 mcg inhalation BID duloxetine 20 mg capsule,delayed release(DR/EC) 60 mg PO DAILY spironolactone 25 mg tablet 25 mg PO DAILY atorvastatin 40 MG tablet 40 mg PO QHS clopidogrel 75 MG tablet 75 mg PO DAILY albuterol sulfate 90 mcg/actuation HFA aerosol inhaler 2 puff INHALATION Q4H PRN (Reason: shortness of breath or wheezing) pramipexole 1.5 mg tablet 1.5 mg PO QHS cholecalciferol (vitamin D3) 125 mcg (5,000 unit) Capsule 125 mcg PO DAILY 30 Days Qty: 30 0RF carvedilol 25 mg tablet 25 mg PO BID magnesium oxide 400 mg magnesium capsule 400 mg PO DAILY potassium chloride 20 mEq/15 mL liquid 20 meq PO DAILY budesonide 0.5 mg/2 mL suspension for nebulization 0.5 mg inhalation BID polysaccharide iron complex [Ferrex 150] 150 mg iron Capsule 150 mg PO DAILY 30 Days Qty: 30 0RF furosemide 40 mg tablet 40 mg PO BID pantoprazole 40 mg Tablet,Delayed Release (Dr/Ec) 40 mg PO BID Primary Care Provider: Viktoriya Manzo Referrals: Viktoriya Manzo MD [Primary Care Provider] - Print Language: Greenlandic What to do if you have Problems For any increased pain, shortness of breath, bleeding, nausea or vomiting, chestpain, or any unexpected problems, contact your Primary Care Provider. Call [facility] ([phone]) or report tothe closest Emergency Room. Call 911 if necessary. 11/28/24 1548 Cosigner Signature (if applicable): CC: Dr. Viktoriya Manzo MD ~ Signed ADDENDUM by Dr. Jay De Luna DO on 11/28/24 at 1810 Patient was turned over to me by Dr. Nolen@4 PM Brief history: History as below. Physical exam: Benign abdomen. Left lower quadrant TTP. No right upper quadrant tenderness. Labs and images reviewed (if obtained): CBC with no leukocytosis, noted mild anemia (at baseline) but no thrombocytopenia BMP without Vidor normalities, noted CKD Initial lactate elevated, this resolved after fluid Urinalysis with signs of inflammation CT scan of the abdomen pelvis shows evidence of perforation. MDM/plan: Discharge home with Cipro/Flagyl for empiric diverticulitis treatment despite negative imaging. Will also give Zofran. Sent urine for culture given the leuk esterase. 11/28/24 1810 Cosigner Signature (if applicable): cc: Dr. Viktoriya Manzo MD ~* Signed [facility]05-14-2025 Radiology Diagnostic study note [facility] Imaging Services [address] [address] Abdomen/Pelvis without Cont MR#: [id number] Acct: [id number] Name: DICK ARTIS Rep #: [id number] : 1935 F 89 From: Sky Jolley MD PCP: Dr. Viktoriya Manzo MD Status: REG E R Study:Abdomen/Pelvis without Cont Date of Exa m: 11/28/24 Exam# [id number] Ordering Dr: Silva Disla DO PROCEDURE: ABDOMEN/PELVIS WITHOUT CONT 11/28/2024 REASON FOR EXAM: 1 day history of abdominal pain. TECHNIQUE: Abdomen and pelvis CT without intravenous contrast. Noncontrast technique limits evaluation of the abdominal and pelvic viscera. Coronal and Sagittal reconstruction series were provided. One or more dose reduction techniques were used (e.g., Automated exposure control, adjustment of the mA and/or kV according to patient size, use of iterative reconstruction technique). PATIENT PREPARATION: Per protocol ORAL CONTRAST TYPE: None. CT dL volume: 6.97 mGy. DLP: 335.93 COMPARISON: Prior examination dated June 06, 2024. FINDINGS: Lung bases: Stable volume loss in the right middle lobe. Coronary artery calcification. Liver: Unremarkable. Gallbladder: stable 4 mm dense nodule along the fundal portion of the gallbladder suggestive of either a tiny gallstone or gallbladder polyp. Spleen: Normal size. Pancreas: Subcentimeter cyst in the tail portion of the pancreas. This is unchanged. Adrenals: Stable 1.3 cm left adrenal nodule suggestive of adenoma. Kidneys: Stable 4.3 cm solid mass in the upper pole of the right kidney. Renal atrophy. Right renalcysts. Tiny nonobstructive left intrarenal calculi. Bladder: Unremarkable Reproductive Organs: Prior hysterectomy. Adnexal regions are unremarkable. Bowel: Colonic diverticulosis without diverticulitis. Appendix: The appendix is not identified. There is no inflammatory process identified in the right lower quadrant to suggest appendicitis. Lymph nodes: None Vasculature: Mild diffuse atherosclerotic calcifications of the abdominal aorta and the major visceral branches are noted. Peritoneum / Retroperitoneum: Unremarkable Bones: Degenerative changes of the spine. CT/Abdomen/Pelvis without Cont IMPRESSION: Sigmoid diverticulosis. Questionable tiny gallstone in the fundal portion of the gallbladder versus tinygallstone. Tiny nonobstructive left intrarenal calculi. OVERALL FINAL ASSESSMENT: . LI-RADS is not meant to be used in patients <18 years or patients with cirrhosisdue to congenital hepatic fibrosis or due to vascular disorders, because these patients have a lower chance of developing HCC. Reading Location: [id number] CC: Dr. Viktoriya Manzo MD; Dr. Tamanna Disla DO ~ 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: Signed [facility]05-14-2025 Discharge summary Author Tamanna Disla [facility] Note Date/Time November 28, 2024 6:10p m [facility] Medical Records Department [address] [place] [address] Emergency Department Summary 11/28/24 MR#: [id number] Acct: [id number] Name: DICK ARTIS Rep #:[id number] : 1935 89 From: Tamanna Disla DO PCP: Dr. Viktoriya Manzo MD Status:REG E R Location: ED HPI HPI - GI History of Present Illness Chief Complaint: Abd Pain Detail of Chief Complaint: Abdominal pain Informant: patient Narrative Narrative: Patient presents to the emergency department with complaint of abdominal pain that started yesterday. Describes the pain as sharp and stabbing to the left lower quadrant. She has history of diverticulitis. She denies fever or chills or sweats. She denies nausea or vomiting. She denies urinary symptoms. She denies blood in her stool or black tarry stool. Patient's had prior hysterectomy. No other abdominal surgeries. Currently rates her pain a 5 or 6 out of 10. [facility] Medical History (Updated 11/28/24 @ 15:[address] Tamanna Disla DO) History of chronic heart failure Cancer Thyroid disease Ambulates with cane History of renal disease TIA (transient ischemic attack) Acute diverticulitis Wears glasses Wears dentures Arthritis Low iron Anemia High cholesterol Migraine headache Restless legs Difficulty chewing History of diverticulitis Heartburn Gastric reflux Former smoker On home oxygen therapy Shortness of breath on exertion Chronic cough History of edema History of echocardiogram History of stress test Cardiology follow-up encounter Hypertension Chronic hypoxic respiratory failure History of diabetes mellitus History of hypertension Diverticulitis History of COPD COPD (chronic obstructive pulmonary disease) Anemia Chronic heart failure with preserved ejection fraction (HFpEF) Hyperlipidemia Right lumbar radiculopathy CKD (chronic kidney disease), stage III Hypertension Chronic kidney disease PAD (peripheral artery disease) Renal cyst History of TIA (transient ischemic attack) Bilateral carotid artery stenosis Claudication RLS (restless legs syndrome) Diverticulosis TIA (transient ischemic attack) Vertigo Leg edema Dyslipidemia Home Medications ?Medication ?Instructions ?Recorded ?Last Taken ?Type atorvastatin 40 mg tablet 40 mg PO QHS cholesterol 01/3011/27/24 History clopidogrel 75 mg tablet 75 mg PO DAILY BLOOD THINNER 02/22/16 11/28/24 History albuterol sulfate 90 mcg/actuation 2 puff inhalation Q 4H PRN 03/16/18 09/27/24 History aerosol inhaler shortness of breath or wheez ing pramipexole 1.5 mg tablet 1.5 mg PO QHS restless leg s yndrome 08/18/23 11/27/24 History polysaccharide iron complex 150 mg 150 mg PO DAILY sup plement 30 days 10/12/23 11/28/24 Rx iron capsule (Ferrex) #30 caps acetaminophen 500 mg tablet 1,000 mg PO Q6H PRN pain 0 02/14/24 Unknown History arformoterol 15 mcg/2 mL solution 15 mcg inhalation BI D breathing 02/14/24 11/28/24 History for nebulization duloxetine 20 mg capsule,delayed 60 mg PO DAILY mental health 02/14/24 11/28/24 History release spironolactone 25 mg tablet 25 mg PO DAILY diuretic 11/28/24 History cholecalciferol (vitamin D3) 125 125 mcg PO DAILY 30 d ays #30 caps 06/08/24 11/28/24 Rx mcg (5,000 unit) capsule furosemide 40 mg tablet 40 mg PO BID FLUID RETENTION 09/24/24 11/28/24 History pantoprazole 40 mg tablet,delayed 40 mg PO BID reflux 09/24/24 11/28/24 History release budesonide 0.5 mg/2 mL suspension 0.5 mg inhalation BI D breathing 11/28/24 11/28/24 History for nebulization carvedilol 25 mg tablet 25 mg PO BID 11/28/24 History magnesium oxide 400 mg PO DAILY 11/28/24 History potassium chloride 20 mEq/15 mL 20 meq PO DAILY 11/28/24 History oral liquid Allergy/AdvReac Type Severity Reaction Status Date / Time lisinopril Allergy edema Verified 11/28/24 13:34 aspirin AdvReac Upset Verified 11/28/24 13:34 Stomach Family History Mother Heart disease Surgical History History of thyroid surgery History of carotid angioplasty History of kidney stones History of basal cell carcinoma excision History of total hysterectomy Social History household members: none housing: house Smoking Status: Former smoker how long ago did patient quit smokin years ago alcohol intake: current alcohol intake frequency: holidays/special occasions only details: rare substance use type: does not use caffeine: Yes Type: coffee Number of servings: 1 ROS ROS ED Review of Systems ROS Unobtainable: other Constitutional Constitutional ED: Reports lethargy; Denies chills, fever(s), sweats or weight loss Eyes Eyes: Denies blurry vision, change in vision or diplopia ENT ENT ED: Denies rhinorrhea or sore throat Cardiovascular Cardiovascular: Denies chest pain, orthopnea or racing heartbeat Respiratory/Chest Respiratory/Chest: Denies cough, dyspnea, dyspnea on exertion, orthopnea or sputum Gastrointestinal Gastrointestinal: Reports abdominal pain; Denies diarrhea, nausea or vomiting Genitourinary Genitourinary ED: Denies dysuria, hematuria or urinary frequency Musculoskeletal Musculoskeletal: Denies arthralgias, back pain, myalgias or neck pain Integumentary Denies abscess, Abrasions or rash Neurologic Neurologic: Denies headache(s) or weakness Psychiatric Psychiatric: Denies anxiety, depression or suicidal thoughts Endocrine Endocrinology: Denies polydipsia, polyphagia or polyuria Hematologic/Lymphatic Hematologic/Lymphatic: Denies easy bleeding, easy bruising or lymphadenopathy Allergic/Immunologic Allergic/Immunologic ED: Denies mouth swelling, tongue swelling or urticaria EXAM Physical Exam Const Vital Signs: 11/28/24 13:32 Temperature 97.4 F L Temperature Source Oral Pulse Rate 79 Respiratory Rate 16 Blood Pressure 118/45 L Blood Pressure Mean 69 Pulse Ox 95 Oxygen Delivery Method Nasal Cannula Oxygen Flow Rate (L/min) 2 Positive well nourished and well developed General Appearance ED: well developed and NAD HEENT Reports TM's clear and moist mucous membranes normocephalic and atraumatic; Negative for trauma or tenderness Tympanic Membrane ED: Yes TM's clear Eyes PERRL and EOMs intact bilaterally General Eye ED: Negative for pale conjunctiva or scleral icterus Neck no lymphadenopathy, supple and no JVD General: Negative for tenderness Chest Wall inspection of chest normal and palpation of chest normal Chest: Negative for tenderness Resp normal respiratory effort and clear to auscultation bilaterally Resp Narrative: Occasional faint expiratory wheezes bilaterally. Effort and Inspection: Negative for respiratory distress or pain with movement Auscultation: Negative for rhonchi, wheezes or diminished lung sounds Cardio regular rate, regular rhythm, S1 normal heart sound, S2 normal heart sound and no murmurs Peripheral Pulses: pulses 2+ throughout GI normal to inspection, nondistended, normoactive bowel sounds, soft to palpation,non-distended and no masses GI Narrative: Tenderness to palpation over the left lower quadrant with some guarding. There is no rebound, rigidity, or peritoneal signs. Back/Spine no CVA tenderness and no thoracic nor lumbar tenderness Extremity normal to inspection General Extremety ED: Negative for edema General Extremity: Negative for edema Neuro oriented x3, CN's II-XII intact bilaterally, no sensory deficits noted and gait normal Sensorium / Orientation: awake, alert, oriented to person, oriented to place andoriented to time Motor Exam: strength 5/5 throughout and strength abnormal Psych mental status grossly normal Skin no rashes or lesions noted and no wounds MDM MDM MDM Narrative Medical decision making narrative: Patient presents with left lower quadrant abdominal pain with history of prior episodes of diverticulitis. She denies any blood in her stool or black tarry stool. Denies significant urinary symptoms. IV line established. CBC with differential obtained showed white count of 8.8 with hemoglobin 10.0 and platelet count of 131. Chemistries unremarkable. BUN 49 and creatinine 1.68. Lactate slightly elevated 2.2. CT scan of the abdomen pelvis performed without contrast given patient's low GFR showed no acute disease process. She had a mass in her right kidney that was stable. Patient is aware of this finding and has an outpatient ultrasound ordered to be evaluated further and states she has a physician following it. Urinalysis ordered and pending. I have low suspicionfor ischemic bowel disease. Care of patient turned over to evening physician awaiting urinalysis results and final disposition. Lab Data Attestation: I reviewed the patient's lab results. Labs: Laboratory Results - last 24 hr 11/28/24 14:00 WBC 8.8 RBC 3.10 L Hgb 10.0 L Hct 30.7 L MCV 99.0 MCH 32.3 H MCHC 32.6 RDW Std Deviation 49.4 H RDW Coeff of Ha 13.5 Plt Count 131 L MPV 10.8 Immature Gran % (Auto) 0.200 Neut % (Auto) 80.7 H Lymph % (Auto) 9.2 L [place] % (Auto) 8.6 Eos % (Auto) 1.1 Baso % (Auto) 0.2 Absolute Neuts (auto) 7.1 Absolute Lymphs (auto) 0.81 L Nucleated RBC % 0 Sodium 138 Potassium 4.0 Chloride 98 Carbon Dioxide 28.4 Anion Gap 12 BUN 49 H Creatinine 1.68 H Estim Creat Clear Calc 21.09 L Est GFR (MDRD) Non-Af 29 L BUN/Creatinine Ratio 29.1 H Glucose 128 H Lactic Acid 2.2 H* Calcium 8.7 Radiography Diagnostic Testing: Clinical Impression(s) from Imaging Studies Abdomen/Pelvis CT 11/28/24 15:01 IMPRESSION: Sigmoid diverticulosis. Questionable tiny gallstone in the fundal portion of the gallbladder versus tinygallstone. Tiny nonobstructive left intrarenal calculi. OVERALL FINAL ASSESSMENT: . LI-RADS is not meant to be used in patients <18 years or patients with cirrhosisdue to congenital hepatic fibrosis or due to vascular disorders, because these patients have a lower chance of developing HCC. Reading Location: [id number] Discharge Plan Triage Chief Complaint: Abd Pain ED Provider: Tamanna Disla Dx/Rx/DC Orders Clinical Impression: Abdominal pain Prescriptions: No Action acetaminophen 500 mg tablet 1,000 mg PO Q6H PRN (Reason: pain) arformoterol 15 mcg/2 mL solution for nebulization 15 mcg inhalation BID duloxetine 20 mg capsule,delayed release(DR/EC) 60 mg PO DAILY spironolactone 25 mg tablet 25 mg PO DAILY atorvastatin 40 MG tablet 40 mg PO QHS clopidogrel 75 MG tablet 75 mg PO DAILY albuterol sulfate 90 mcg/actuation HFA aerosol inhaler 2 puff INHALATION Q4H PRN (Reason: shortness of breath or wheezing) pramipexole 1.5 mg tablet 1.5 mg PO QHS cholecalciferol (vitamin D3) 125 mcg (5,000 unit) Capsule 125 mcg PO DAILY 30 Days Qty: 30 0RF carvedilol 25 mg tablet 25 mg PO BID magnesium oxide 400 mg magnesium capsule 400 mg PO DAILY potassium chloride 20 mEq/15 mL liquid 20 meq PO DAILY budesonide 0.5 mg/2 mL suspension for nebulization 0.5 mg inhalation BID polysaccharide iron complex [Ferrex 150] 150 mg iron Capsule 150 mg PO DAILY 30 Days Qty: 30 0RF furosemide 40 mg tablet 40 mg PO BID pantoprazole 40 mg Tablet,Delayed Release (Dr/Ec) 40 mg PO BID Primary Care Provider: Viktoriya Manzo Referrals: Viktoriya Manzo MD [Primary Care Provider] - Print Language: Greenlandic What to do if you have Problems For any increased pain, shortness of breath, bleeding, nausea or vomiting, chestpain, or any unexpected problems, contact your Primary Care Provider. Call [facility] ([phone]) or report to the closest Emergency Room. Call 911 if necessary. 11/28/24 1548 <Electronically signed by Tamanna Disla DO> Cosigner Signature (if applicable): CC: Dr. Viktoriya Manzo MD ~ Signed ADDENDUM by Dr. Jay De Luna DO on 11/28/24 at 1810 Patient was turned over to me by Dr. Nolen@4 PM Brief history: History as below. Physical exam: Benign abdomen. Left lower quadrant TTP. No right upper quadrant tenderness. Labs and images reviewed (if obtained): CBC with no leukocytosis, noted mild anemia (at baseline) but no thrombocytopenia BMP without Tari normalities, noted CKD Initial lactate elevated, this resolved after fluid Urinalysis with signs of inflammation CT scan of the abdomen pelvis shows evidence of perforation. MDM/plan: Discharge home with Cipro/Flagyl for empiric diverticulitis treatment despite negative imaging. Will also give Zofran. Sent urine for culture given the leuk esterase. 11/28/24 1810<Electronically signed by Jay De Luna DO> Cosigner Signature (if applicable): cc: Dr. Viktoriya Manzo MD ~* Signed [facility] Work Phone: 1(358) 129-870605-14-2025 Telephone encounter Note* Telephone Encounter - Janice Jessica RN - 11/28/2024 11:18 AM EDT Patient call in for lower left abdominal pain and BM with Discharge. Patient is not having actual BM. Nurse Triage assessment completed with protocol recommending for disposition of Go to ED Now. Patient voiced understanding. Care advice reviewed with patient, patient stated understanding. Reason for Disposition [1] SEVERE pain AND [2] age > 60 years Answer Assessment - Initial Assessment Questions 1. LOCATION: Lower Left Abdominal Pain 2. RADIATION: Denies radiation 3. ONSET: Started Yesterday 4. SUDDEN: Sudden Onset 5. PATTERN Comes and Goes, Only happens when she eats something. 6. SEVERITY: Patient rates pain as a 5 or 6. Patient reports that heating pad and tylenol helps. 7. RECURRENT SYMPTOM: Yes, Was diagnosed with Diverticulitis. 8. CAUSE: Diverticulitis. 9. RELIEVING/AGGRAVATING FACTORS: Heat and tylenol makes it better. 10. OTHER SYMPTOMS: Patient just has stringing discharge; once in a while has a little bit of BM; Protocols used: Abdominal Pain - [id number] [facility]05-14-2025 Miscellaneous Notes* Telephone Encounter - Janice Jessica RN - 11/28/2024 11:18 AM EDT Patient call in for lower left abdominal pain and BM with Discharge. Patient is not having actual BM. Nurse Triage assessment completed with protocol recommending for disposition of Go to ED Now. Patient voiced understanding. Care advice reviewed with patient, patient stated understanding. Reason for Disposition [1] SEVERE pain AND [2] age > 60 years Answer Assessment - Initial Assessment Questions 1. LOCATION: Lower Left Abdominal Pain 2. RADIATION: Denies radiation 3. ONSET: Started Yesterday 4. SUDDEN: Sudden Onset 5. PATTERN Comes and Goes, Only happens when she eats something. 6. SEVERITY: Patient rates pain as a 5 or 6. Patient reports that heating pad and tylenol helps. 7. RECURRENT SYMPTOM: Yes, Was diagnosed with Diverticulitis. 8. CAUSE: Diverticulitis. 9. RELIEVING/AGGRAVATING FACTORS: Heat and tylenol makes it better. 10. OTHER SYMPTOMS: Patient just has stringing discharge; once in a while has a little bit of BM; Protocols used: Abdominal Pain - [id number] [facility] Telephone encounter Note * Telephone Encounter - Virgie Herbert RN - 11/19/2024 4:36 PM EDT Pt called in and [facility] informed her that they would not fill that particular prescription at their pharmacy. Pt would like it transferred to [facility]. This nurse contacted pt's daughter Raimundo and updated her. Raimundo will contact [facility] to contact [employer] [facility] for script transfer. Virgie Herbert RN [facility]05-05-2025 Miscellaneous Notes* Telephone Encounter - Virgie Herbert RN - 11/19/2024 4:36 PM EDT Pt called in and states [facility] informed her that they would not fill that particular prescription at their pharmacy. Pt would like it transferred to [facility]. This nurse contacted pt's daughter Raimundo and updated her. Raimundo will contact [facility] to contact [facility] for script transfer. Virgie Herbert RN * Telephone Encounter - Natali Mcintosh RN - 11/19/2024 3:31 PM EDT Pt has multiple scripts at [facility] that were sent for a full year on 10/05/[address] Manzo. But she has a couple other scripts at [facility] in [place] and one to [facility] pharmacy.Attempted to call pt again with no answer. Contacted pt's daughter Raimundo to discuss pt's medications.Per Raimundo, pt probably forget or isn't aware that a script was sent to [facility] already. Daughter states pt does get certain meds for [facility] pharmacy because she needed it in liquid form and she got one from [facility] because she couldn't get that medication from [facility]. She will discuss with pt if she needs the script or was wanting to transfer it. If pt wants to transfer the script, pt's daughter will reach out to [facility] pharmacy to contact [facility] to transfer the active script. * Telephone Encounter - Diann Nascimento LPN - 11/19/2024 2:36 PM EDT Our records indicate that there is a current script at [facility]. Is this the correct pharmacy or should it be sent to [facility]? Message left for patient to return call. * Telephone Encounter - Diamond Shukla - 11/19/2024 9:30 AM EDT Prescription Refill Information The patient has been identified by name and date of : Yes Caregiver verified no other encounters exist for this prescription request: Yes Caregiver confirmed with patient/requestor that no other refills are due, in the near future, with this provider at this time: Yes The last office visit in the department: 10/05/24 Does the patient have a future office visit with this provider/department: Yes Requested Prescriptions Pending Prescriptions Disp Refills iron polysaccharide complex (FERREX-150) 150 mg iron capsule 90 capsule 3 Sig: Take 1 capsule by mouth once daily. Diamond Shukla November 19, 2024 9:30 AM documented in [facility] encounterP[facility]05[facility] Telephone encounter Note * Telephone Encounter - Natali Mcintosh RN - 11/19/2024 3:31 PM EDT Pt has multiple scripts at [facility] that were sent for a full year on 10/05/[address] Manzo. But she has a couple other scripts at [facility] in [place] and one to [facility] pharmacy.Attempted to call pt again with no answer. Contacted pt's daughter Raiumndo to discuss pt's medications.Per Raimundo, pt probably forget or isn't aware that a script was sent to [facility] already. Daughter states pt does get certain meds for [facility] pharmacy because she needed it in liquid form and she got one from [facility] because she couldn't get that medication from [facility]. She will discuss with pt if she needs the script or was wanting to transfer it. If pt wants to transfer the script, pt's daughter will reach out to [facility] pharmacy to contact [facility] to transfer the active script. [facility]05-05-2025 Telephone encounter Note* Telephone Encounter - Diann Nascimento LPN - 11/19/2024 2:36 PM EDT Our records indicate that there is a current script at [facility]. Is this the correct pharmacy or should it be sent to [facility]? Message left for patient to return call. [facility]05-05-2025 Telephone encounter Note* Telephone Encounter - Diamond Shukla - 11/19/2024 9:30 AM EDT Prescription Refill Information The patient has been identified by name and date of : Yes Caregiver verified no other encounters exist for this prescription request: Yes Caregiver confirmed with patient/requestor that no other refills are due, in the near future, with this provider at this time: Yes The last office visit in the department: 3/21/25 Does the patient have a future office visit with this provider/department: Yes Requested Prescriptions Pending Prescriptions Disp Refills iron polysaccharide complex (FERREX-150) 150 mg iron capsule 90 capsule 3 Sig: Take 1 capsule by mouth once daily. Diamond Shukla November 19, 2024 9:30 AM [facility]05-02-2025 Telephone encounter Note* Telephone Encounter - Melissa Conde MA - 11/16/2024 2:17 PM EDT Order faxed again to [facility]. [facility]05-02-2025 Miscellaneous Notes* Telephone Encounter - Melissa Conde MA - 11/16/2024 2:17 PM EDT Order faxed again to [facility]. * Telephone Encounter - Dayan Cornell MA - 11/16/2024 12:08 PM EDT Pt was told to call today if she had not heard from the hospital to arrange the EMG that was ordered. Will check with office to see if there is a number to contact to assist. Dayan Cornell MA documented in this encounterPike [facility]05-[facility]-2025 Telephone encounter Note * Telephone Encounter - Dayan Cornell MA - 11/16/2024 12:08 PM EDT Pt was told to call today if she had not heard from the hospital to arrange the EMG that was ordered. Will check with office to see if there is a number to contact to assist. Dayan Cornell MA [facility]04-28-2025 NoteHNO ID: [id number] Author: TONA KIM PA-C Service: ? Author Type: Physician Divinity Professor Type: Progress Notes Filed: 11/12/2024 13:30 Note Text: Tona Kim PA-C Department of Orthopaedics Orthopaedics [address] [facility] [address] Dept: [phone] Dept November 12, 2024 CHIEF COMPLAINT: New and Pain of the Left Shoulder and New and Pain of the Right Shoulder Right Arm Pain: - Pain radiates from the upper arm down to the middle and ring fingers. - Symptoms present for several months, exacerbated by use of the right hand. - Describes pain as constant, denies numbness or burning. - Reports soreness in the tricep area and forearm region. - Denies issues with the left arm. - Recent shoulder X-rays on 10/05 revealed a rotator cuff tear and arthritis in the right shoulder. - cervical X-rays from 2013 showed disc disease. CVA: - History of a mini stroke years ago. - Currently on anticoagulant therapy. - History of dysphagia, recently treated with Botox injections in the throat. - Experiences frequent loss of voice. - Unable to wear scarves or upper dentures due to choking sensation. ASSESSMENT: M79.641 Right hand pain (primary encounter diagnosis) M50.10 Cervical disc disorder with radiculopathy of cervical region M75.121 Complete tear of right rotator cuff, unspecified whether traumatic PLAN: 1. Right hand pain (M79.641) 2. Cervical disc disorder with radiculopathy of cervical region (M50.10) - Differential diagnosis includes cervical radiculopathy and carpal tunnel syndrome. - Ordered EMG/NCS to evaluate for nerve compression or entrapment; will fax order to [facility]. - Discussed potential need to hold anticoagulation therapy prior to EMG/NCS; advised to consult with prescribing physician. 3. Complete tear of right rotator cuff, unspecified whether traumatic (M75.121) - Right shoulder X-rays from 10/05 reveal a complete rotator cuff tear and mild glenohumeral arthritis. - Discussed findings with patient; advised that current symptoms are likely unrelated to shoulder pathology. Will continue to monitor patient for Right hand pain (primary encounter diagnosis) Cervical disc disorder with radiculopathy of cervical region Complete tear of right rotator cuff, unspecified whether traumatic, patient to schedule visit as per follow up discussed. Ms. Dick Artis was advised as to contrast therapies and/or to take analgesics/anti-inflammatories as needed and all contraindications were reviewed. OBJECTIVE: Ms. Dick Artis is a pleasant 89 year old in no apparent distress. Gen:There were no vitals taken for this visit. nl development, non obese, no deformities ENT: Normocephalic, normal hearing, moist mucosa CV: Pulses:Radial= 2+ and symmetric, capillary refill < 2 secs, no peripheral edema/varicosities Skin: no rash, bruising or lesions. Good turgor. Psych: cooperative and appropriate, alert and oriented x 3, good mood and affect. Musculoskeletal: Supple range of motion of the cervical spine without pain. Spurling signs are negative. No atrophy of the deltoid and shoulder musculature. Right shoulder is nontender to palpation over the SC joint, clavicle and AC joint. No tenderness to palpation over the posterior shoulder, nontender anterior lateral corner of the shoulder and greater tuberosity. Nontender at the bicipital groove and coracoid. Active range of motion is 85 degrees of forward elevation. Tenderness palpation over the right biceps region, no tenderness over the triceps. Some discomfort over the right cubital tunnel, no discomfort on palpation at the medial or lateral epicondyle of the elbow. Mid forearm discomfort noted over the flexor and extensor aspects. Patient is able to gently flex and extend the wrist without any discomfort. Also able to form a full composite fist and extend all digits without any locking or catching. Tinel's is negative at the wrist, negative carpal tunnel compression testing on the right. Sensation is intact in the axillary, radial, median and ulnar nerve distribution Imaging: IMPRESSION: No acute fracture or dislocation is identified. There is narrowing of the acromiohumeral interval which may be seen in the setting of rotator cuff tendon tearing. Mild glenohumeral and acromioclavicular osteoarthritis. 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: JANE Transcribe Date/Time: Oct 11 2024 6:16P Dictated by : NEETA ORTIZ MD This examination was interpreted and the report reviewed and electronically signed by: NEETA ORTIZ MD on Oct 11 2024 6:16PM EST Results-Findings * * *Final Report* * * DATE OF EXAM: Oct 05 2024 3:43PM WOX [id number] - XR SHLDR >/=3V AP/CARRIE AP/OTHR RT / PROCEDURE REASON: multiple diagnoses * * * * Physician Interpretation * * * * EXAMINATION / TECHNIQUE: XR SHLDR >/=3V AP/CARRIE AP/OTHR RT HISTORY: chronic right shoul (more content not included)...[facility]04-28-2025 NoteHNO ID: [id number] Author: ALIE CR MA Service: ? Author Type: Senior Front End Engineer Type: Progress Notes Filed: 11/12/2024 13:30 Note Text: Patient presents with: Left Shoulder - New, Pain Right Shoulder - New, Pain AMB ROOMING INTAKE FLOWSHEET DATA Pain Pain Level: 8 Pain Location: Arm-Right Description: Aching, Throbbing Duration Amount of Time: 6 Duration Units: Hours Frequency: Intermittent Intervention/Comfort measure: Massage, Other: See comment Comments: artheritis pain cream Patient here for evaluation bilateral shoulder pain. No specific injury. States her pain started about 6-8 months ago. Her right shoulder is worse than her left. States her pain radiates from her shoulder all the way down her arm to her fingers. Dr. Manzo referring patient. X-rays done on 10/05/24. Patient states she has been applying arthritis cream and taking Tylenol for the pain and helps. Son, Jac with patient today.[facility]03-25-2025 Telephone encounter Note* Telephone Encounter - Alina Srivastava MA - 10/09/2024 12:24 PM EDT Spoke to [facility] which advised this medication can not be sent by [facility] due to liquid form will need to get from local. Did review and all past dispense log are from local. Called patient who is aware and ok with rx being resent for 90 days to local Alina Srivastava MA [facility]03-25-2025 Miscellaneous Notes* Telephone Encounter - Alina Srivastava MA - 10/09/2024 12:24 PM EDT Spoke to [facility] which advised this medication can not be sent by [facility] due to liquid form will need to get from local. Did review and all past dispense log are from local. Called patient who is aware and ok with rx being resent for 90 days to local Alina Srivastava MA * Telephone Encounter - Ana Ring - 10/09/2024 11:29 AM EDT Emerson is calling Viktoriya Manzo MD today with concern regarding Refill Request Potassium The Potassium that was sent in was for the IV solution. Patient needs the liquid potassium. She needs a week's worth sent to: [facility] [employer] sent to: [facility] Patient has been identified by name and birthdate. Duration of symptoms: N/A Person calling: self Call patient at: at home [phone] (home) [phone] (cell) Was an appointment scheduled: No Closing statement: Ana Haywood documented in this encounterPike [facility]03-[facility]-2025 Telephone encounter Note * Telephone Encounter - Ana Ring - 10/09/2024 11:29 AM EDT Emerson is calling Viktoriya Manzo MD today with concern regarding Refill Request Potassium The Potassium that was sent in was for the IV solution. Patient needs the liquid potassium. She needs a week's worth sent to: Location pharmacy [facility] [employer] [facility] sent to: [facility] Patient has been identified by name and birthdate. Duration of symptoms: N/A Person calling: self Call patient at: at home [phone] (home) [phone] (cell) Was an appointment scheduled: No Closing statement: Ana Haywood [facility] Work Phone: 1(204) 622-664303-21-2025 NoteHNO ID: [id number] Author: VIKTORIYA MANZO MD Service: ? Author Type: Physician Type: Progress Notes Filed: 10/05/2024 17:15 Note Text: Reason for Visit Follow up EHSAN Norman is a 89-year-old female, with a history of HTN, HLD, peripheral arterial disease, COPD, CKD stage 3, lumbar stenosis, obesity, cardiovascular disease with TIAs, and carotid artery stenosis, presenting for follow-up. Emerson was recently diagnosed with achalasia following an EGD performed by Dr. Denson on 09/27. She reports a history of dysphagia, describing episodes of choking on food, which have improved slightly since receiving botulinum toxin injections last week. This was her first botulinum toxin treatment for achalasia. She also reports chronic right shoulder pain that has been worsening over the past several months. The pain radiates down her arm into her fingers and is exacerbated by activities such as holding a book, reading, and reaching overhead. She denies morning pain but notes that the pain improves with the application of arthritis cream. She has not undergone physical therapy for this issue. She also reports a popping sensation in her neck when lying flat but denies any significant neck pain. Emerson additionally reports ongoing auditory hallucinations, describing hearing people talking and music when in a quiet environment. These hallucinations are less severe than when she was previously on Ambien, which has since been discontinued. She is currently taking Pramipexole at night for restless leg syndrome, which she describes as severe, causing her legs to jerk and jerk and preventing sleep if she misses a dose. She has tried Requip in the past, which was less effective. She denies visual hallucinations, memory issues, or a history of severe psychiatric illnesses, though she has experienced mild depression in the past. She is currently on multiple medications, including cholesterol medication, Plavix, duloxetine, Lasix, Coreg, vitamin D, and potassium in liquid form. She requests that her medications be filled for 90 days through [facility], except for budesonide and Brevana, which she prefers to obtain from [facility]. She is also taking Protonix BID. Emerson uses oxygen as needed for COPD and inquires about portable oxygen tanks, noting that her current equipment is heavy. She engages in light exercise, including leg lifts and walking around the house. She has a follow-up appointment with her siding coreboard inspector on 10/17. Social History Tobacco Use Smoking status: Former Current packs/day: 0.00 Average packs/day: 1 pack/day for 53.1 years (53.1 ttl pk-yrs) Types: Cigarettes Start date: 08/11/1963 Quit date: 10/04/2016 Years since quittin.0 Smokeless tobacco: Never Tobacco comments: 10-20 year period in 30-40s when quit. Vaping Use Vaping status: Never Used Substance Use Topics Alcohol use: Not Currently Comment: very seldom Drug use: Never Past medical history, appointments, medications, allergies reviewed. Pertinent Lab/Diagnostic Studies are reviewed and discussed today Current Outpatient Medications: cholecalciferol, vitamin D3, (VITAMIN D3 ORAL) magnesium oxide (MAG-OX) 400 mg (241.3 mg magnesium) tablet Compression Socks, Medium misc OXYGEN, HOME THERAPY, acetaminophen (TYLENOL) 500 mg tablet albuterol HFA (VENTOLIN HFA) 90 mcg/actuation inhaler iron polysaccharide complex (FERREX-150) 150 mg iron capsule DULoxetine (CYMBALTA) 60 mg capsule clopidogrel (PLAVIX) 75 mg tablet atorvastatin (LIPITOR) 40 mg tablet arformoterol (BROVANA) 15 mcg/2 mL nebulizer solution budesonide (PULMICORT) 0.5 mg/2 mL nebulizer solution carvedilol (COREG) 25 mg tablet furosemide (LASIX) [address] (PROTONIX) 40 mg tablet potassium chloride 20 mEq/15 mL solution pramipexole (MIRAPEX) 1.5 mg tablet spironolactone (ALDACTONE) 25 mg tablet Health Maintenance Shingrix Vaccine(1 of 2) DTaP,Tdap,Td Vaccine(2 - Td or Tdap) Covid-19 Vaccine() Advance Directive Discussion@ Review Of Systems Neck: (+) popping, (-) pain Gastrointestinal: (-) dysphagia Musculoskeletal: (+) right shoulder pain, (+) radiating arm pain, (+) limited range of motion, (+) weakness Neurological: (+) restless legs Psychiatric: (+) auditory hallucinations, (-) visual hallucinations, (-) memory problems Physical Exam BP 135/66 Pulse 82 Resp 16 Wt 63.6 kg (140 lb 3.2 oz) SpO2 92% BMI 25.64 kg/m? GENERAL: NAD, alert and oriented. SKIN: Unremarkable, no rash or skin lesions. HEAD: Normocephalic. EYES: PERRLA, EOMI, conjunctiva clear. NECK: Supple, no lymphadenopathy, normal thyroid, no carotid bruits. LUNGS: Rhonchi noted on the left side, otherwise clear to auscultation bilaterally, no wheezes/rales. HEART: Regular rate and rhythm, mild murmur noted, likely tricuspid regurgitation. No ectopy. EXTREMITIES: Normal, no deformities, no skin d (more content not included)... [facility]03-21-2025 History of Present illness Narrative* Viktoriya Manzo MD - 10/05/2024 5:12 PM EDT Reason for Visit Follow up HPI Emerson is a 89-year-old female, with a history of HTN, HLD, peripheral arterial disease, COPD, CKD stage 3, lumbar stenosis, obesity, cardiovascular disease with TIAs, and carotid artery stenosis, presenting for follow-up. Emerson was recently diagnosed with achalasia following an EGD performed by Dr. Denson on 09/27. She reports a history of dysphagia, describing episodes of choking on food, which have improved slightly since receiving botulinum toxin injections last week. This was her first botulinum toxin treatment for achalasia. She also reports chronic right shoulder pain that has been worsening over the past several months. The pain radiates down her arm into her fingers and is exacerbated by activities such as holding a book, reading, and reaching overhead. She denies morning pain but notes that the pain improves with the application of arthritis cream. She has not undergone physical therapy for this issue. She also reports a popping sensation in her neck when lying flat but denies any significant neck pain. Emerson additionally reports ongoing auditory hallucinations, describing hearing people talking and music when in a quiet environment. These hallucinations are less severe than when she was previously onAmbien, which has since been discontinued. She is currently taking Pramipexole at night for restless leg syndrome, which she describes as severe, causing her legs to jerk and jerk and preventing sleep if she misses a dose. She has tried Requip in the past, which was less effective. She denies visual hallucinations, memory issues, or a history of severe psychiatric illnesses, though she has experienced mild depression in the past. She is currently on multiple medications, including cholesterol medication, Plavix, duloxetine, Lasix, Coreg, vitamin D, and potassium in liquid form. She requests that her medications be filled for 90 days through [facility], except [facility] She is also taking Protonix BID. Emerson uses oxygen as needed for COPD and inquires about portable oxygen tanks, noting that her current equipment is heavy. She engages in light exercise, including leg lifts and walking around the house. She has a follow-up appointment with her siding coreboard inspector on 10/17. Social History Tobacco Use Smoking status: Former Current packs/day: 0.00 Average packs/day: 1 pack/day for 53.1 years (53.1 ttl pk-yrs) Types: Cigarettes Start date: 08/11/1963 Quit date: 10/04/2016 Years since quittin.0 Smokeless tobacco: Never Tobacco comments: 10-20 year period in 30-40s when quit. Vaping Use Vaping status: Never Used Substance Use Topics Alcohol use: Not Currently Comment: very seldom Drug use: Never Past medical history, appointments, medications, allergies reviewed. Pertinent Lab/Diagnostic Studies are reviewed and discussed today Current Outpatient Medications: cholecalciferol, vitamin D3, (VITAMIN D3 ORAL) magnesium oxide (MAG-OX) 400 mg (241.3 mg magnesium) tablet Compression Socks, Medium misc OXYGEN, HOME THERAPY, acetaminophen (TYLENOL) 500 mg tablet albuterol HFA (VENTOLIN HFA) 90 mcg/actuation inhaler iron polysaccharide complex (FERREX-150) 150 mg iron capsule DULoxetine (CYMBALTA) 60 mg capsule clopidogrel (PLAVIX) 75 mg tablet atorvastatin (LIPITOR) 40 mg tablet arformoterol (BROVANA) 15 mcg/2 mL nebulizer solution budesonide (PULMICORT) 0.5 mg/2 mL nebulizer solution carvedilol (COREG) 25 mg tablet furosemide (LASIX) [address] (PROTONIX) 40 mg tablet potassium chloride 20 mEq/15 mL solution pramipexole (MIRAPEX) 1.5 mg tablet spironolactone (ALDACTONE) 25 mg tablet Health Maintenance Shingrix Vaccine(1 of 2) DTaP,Tdap,Td Vaccine(2 - Td or Tdap) Covid-19 Vaccine() Advance Directive Discussion@ Review Of Systems Neck: (+) popping, (-) pain Gastrointestinal: (-) dysphagia Musculoskeletal: (+) right shoulder pain, (+) radiating arm pain, (+) limited range of motion, (+) weakness Neurological: (+) restless legs Psychiatric: (+) auditory hallucinations, (-) visual hallucinations, (-) memory problems Physical Exam BP 135/66 Pulse 82 Resp 16 Wt 63.6 kg (140 lb 3.2 oz) SpO2 92% BMI 25.64 kg/m GENERAL: NAD, alert and oriented. SKIN: Unremarkable, no rash or skin lesions. HEAD: Normocephalic. EYES: PERRLA, EOMI, conjunctiva clear. NECK: Supple, no lymphadenopathy, normal thyroid, no carotid bruits. LUNGS: Rhonchi noted on the left side, otherwise clear to auscultation bilaterally, no wheezes/rales. HEART: Regular rate and rhythm, mild murmur noted, likely tricuspid regurgitation. No ectopy. EXTREMITIES: Normal, no deformities, no skin discoloration, trace edema noted. NEURO: Awake, alert and oriented x3, cranial nerves II-XII grossly intact, normal gait, no involuntary motions. Labs: - Lipid panel: Slightly elevated triglycerides Imaging: - Echocardiogram: Mild tricuspid regurgitation Tests: - (09/27) EGD: Achalasia identified Assessment and Plan 1. Chronic bilateral low back pain, unspecified whether sciatica present (M54.50) Patient has a history of lumbar stenosis. - Continue current management. 2. Chronic right shoulder pain (M25.511) Right shoulder pain worsening over several months, rated 5/10. Limited abduction to 80 degrees; possible rotator cuff pathology. - Ordered X-ray of the right shoulder. - Referred to physical therapy. - Referred to sports medicine for further evaluation and potential corticosteroid injection. 3. Chronic obstructive pulmonary disease, unspecified COPD type (HCC) (J44.9) Patient is on supplemental oxygen and uses Brevana and budesonide inhalers. Auscultation reveals rhonchi in the left upper lung field. - Continue current inhaler regimen. - Discussed portable oxygen options; advised to consult county health officer. 4. Primary hypertension (I10) Blood pressure is currently managed with Coreg. - Refilled Coreg for 90 days with 3 refills. 5. Restless legs syndrome (RLS) (G25.81) Managed with Mirapex, which may be contributing to auditory hallucinations. - Continue Mirapex at night. - Discussed potential side effects; patient prefers to continue current medication. 6. Hypokalemia (E87.6) Patient is on potassium supplementation. - Ordered BMP to monitor potassium levels. - Refilled potassium prescription. 7. Achalasia of cardia (K22.0) Diagnosed via EGD by Dr. Denson on 09/27; treated with botulinum toxin injection. Symptoms of dysphagia have slightly improved. - Monitor symptoms; may require repeat botulinum toxin injections. 8. Stage 3b chronic kidney disease (HCC) (N18.32) Stable; recent labs reviewed. - Ordered BMP to monitor renal function. 9. Mixed hyperlipidemia (E78.2) Managed with cholesterol medication; recent labs show slightly elevated levels. - Refilled cholesterol medication for 90 days with 3 refills. Voice recognition software was used to compose this office note. Please excuse any unintended typographical errors. The patient consented to the use of ambient [employer] software for draft documentation of the visit consistent with [facility] s Notice of Privacy Practices. Viktoriya Manzo MD documented in [facility] encounterP[facility]03-[facility] History of Present illness Narrative* Guzman Mendoza Tech - 10/05/2024 3:20 PM EDT Radiology Service Progress Note PATIENT NAME: Dick Artis DATE OF SERVICE: October 05, 2024 TIME: 3:27 PM PATIENT IDENTITY VERIFICATION COMPLETED USING TWO (2) IDENTIFIERS: Name and Date of confirmedby patient verbally. FALL SCREENING: Has the patient had 2 falls in the last year or 1 fall with injury or currently using an Ambulatory Assistive Device (Walker, Cane, Wheelchair, Crutches, etc.)? No PATIENT GENDER DATA: Assigned female at . status: : No status:NO. PATIENT RELEVANT IMPLANT DATA REVIEWED: Not Applicable PATIENT PRESENTS WITH AN IMPLANTABLE OR ATTACHED ELECTROPHYSIOLOGY SCIENTIST: No RADIOLOGY DEPARTMENT: General X-ray: Exam(s) Completed: Upper Extremity X- Ray(s): Shoulder, AP / TRUE AP / AXILLARY right PERIPHERAL IV DATA: Not applicable SIGNED BY: Giovani Moore October 05, 2024 3:27 PM documented in this encounterPike [facility]03-21-2025 NoteHNO ID: [id number] Author: GUZMAN MENDOZA Tech Service: ? Author Type: Technologist Type: Progress Notes Filed: 10/05/2024 15:44 Note Text: Radiology Service Progress Note PATIENT NAME: Dick Artis DATE OF SERVICE: October 05, 2024 TIME: 3:27 PM PATIENT IDENTITY VERIFICATION COMPLETED USING TWO (2) IDENTIFIERS: Name and Date of confirmed by patient verbally. FALL SCREENING: Has the patient had 2 falls in the last year or 1 fall with injury or currently using an Ambulatory Assistive Device (Walker, Cane, Wheelchair, Crutches, etc.)? No PATIENT GENDER DATA: Assigned female at . status: : No status: NO. PATIENT RELEVANT IMPLANT DATA REVIEWED: Not Applicable PATIENT PRESENTS WITH AN IMPLANTABLE OR ATTACHED ELECTROPHYSIOLOGY SCIENTIST: No RADIOLOGY DEPARTMENT: General X-ray: Exam(s) Completed: Upper Extremity X-Ray(s): Shoulder, AP / TRUE AP / AXILLARY right PERIPHERAL IV DATA: Not applicable SIGNED BY: Giovani Moore October 05, 2024 3:27 [facility]03-21-2025 Instructions* Patient Instructions* Viktoriya Manzo MD - 10/05/2024 2:55 PM EDT We discussed your recent diagnosis of achalasia: - You had an EGD on September [address] Denson, who diagnosed you with achalasia and treated it with botulinum toxin (Botox). - You reported improvement in your swallowing symptoms over the past week, with no choking episodes. This treatment may need to be repeated in the future if symptoms return. We discussed your right shoulder pain: - You have been experiencing worsening right shoulder pain for several months, rated as a 5/10 in severity. The pain limits your ability to lift objects, reach overhead, and perform daily activities like doing your hair. - You will have an X-ray of your right shoulder today to evaluate the cause of the pain. - I am referring you to physical therapy to help improve your shoulder function and reduce pain. - I am also referring you to sports medicine for further evaluation and to discuss additional treatment options, such as a possible injection. We discussed your medications: - All your medications, except for budesonide and Brevana, will now be sent to [facility] for 90-day supplies with three refills. - Budesonide and Brevana will continue to be filled at [facility]. - You are taking potassium in liquid form due to difficulty swallowing pills. Please ensure your potassium levels are checked today, as your kidney function may affect your potassium levels. - Continue taking your cholesterol medication as prescribed. Your cholesterol levels were checked three weeks ago and are slightly elevated but manageable with your current treatment. We discussed your hallucinations: - You reported occasional auditory hallucinations (hearing people talking or music) that occur whenit is quiet. These are not significantly bothersome to you, and you prefer not to start additional medications at this time. - The hallucinations may be related to your use of Mirapex (pramipexole) for restless legs syndrome. However, since this medication is effective for your symptoms, we will continue it as prescribed. We discussed your breathing and oxygen use: - You are using oxygen as needed and are breathing well. You quit smoking, which is excellent for your lung health. - For questions about portable oxygen tanks, I recommend discussing this with your lung doctor, as they are better equipped to guide you on this matter. We discussed your heart health: - You have a mild heart murmur (likely tricuspid regurgitation) noted on your recent echocardiogram. This is not currently a cause for concern. - You have an upcoming appointment with your siding coreboard inspector on October 17 to review your heart health. We discussed your exercise routine: - Continue your current exercises, including leg lifts and walking around the house, as these are beneficial for your overall health. Next steps: - Please complete the X-ray of your right shoulder and the bloodwork (BMP and potassium levels) today. - Follow up with physical therapy and sports medicine as scheduled. - Attend namita r cardiology appointment on October 17. - Contact our office if your symptoms worsen or if you have any new concerns. documented in this encounterPike [facility]03-13-2025 Consult note Author Juan Carlos Grant [facility] Note Date/Time September 27, 2024 7:1 2am [facility] Medical Records Department [address] [place] [address] Anesthesia Postop Eval I 09/27/24709 MR#: [id number] Acct: [id number] Name: DICK ARTIS Rep #:[id number] : 1935 89 From: Juan Carlos Grant PCP: Dr. Viktoriya Manzo MD Status:REG S DC Y Race: C Location: [place] [address] Anesthesia: Postop Eval I Current Vital Signs Temperature: 97.2 F Pulse Rate: 67 Blood Pressure: 77/47 Respiratory Rate: 16 Pulse Ox: 98 Oxygen Delivery Method: Nasal Cannula Oxygen Flow Rate (L/min): 2 Assessment Airway patent: Yes Spontaneous unlabored respirations: Yes Mental status: Asleep nausea: No Vomiting: No Anesthesia Complication: Yes Anesthesia Complication Comment:: hypotension Fluid Hydration Crystalloid volume administer (ml): 30 Total IV fluid infused: 30 Progress Note Anesthesia document: Postop Eval 1 completed: Yes 09/27/24711 <Electronically signed by Juan Carlos Grant > Date _ Juan Carlos Lombardo Signature: Date CC: ~ Signed [facility] Work Phone: 1(824) 461-148003-13-2025 History and physical note Author Teodoro Real [facility] Note Date/Time September 27, 2024 6:4 3am [facility] Medical Records Department [address] [place] [address] History & Physical Exam 09/27/24640 MR#: [id number] Acct: [id number] Name: DCIK ARTIS Rep #:[id number] : 1935 89 From: Teodoro Friend DO PCP: Dr. Viktoriya Manzo MD Status:REG S DC Location: [place] [address] HPI - General General Date of Admission: 09/27/24 Date of Service: 09/27/24 Chief Complaint: dysphagia HPI Narrative DICK ARTIS, is a 89 F who presents for treatment of achalasia PT was hospitalized in August of 2023 for NSTEMI and COPD exacerbation. She was found to have down trending hemoglobin and underwent EGD. EGD .08.10; - LA Grade D erosive esophagitis with bleeding. Treated with a heater probe. - Non-bleeding gastric ulcers with no stigmata of bleeding. Biopsied. - Acute duodenitis. Biopsied OV 9..24 ; Patient has been doing well from GI standpoint up until recently when she had an episode of choking. She was eating a chicken wing when she stated to choke on it. She presented to the ED for this and was ultimately sent home after normal chest x-ray. After being sent home she had numerous episodes of vomiting which subsided after a few days. Since then she has had no further problems besides some break through heartburn. She continues to take Pantoprazole daily. EGD 04.19.24; - Abnormal esophageal motility, consistent with aperistalsis. Dilated. - Small hiatal hernia. - Gastric mucosal variant. Biopsied. - A few duodenal polyps. Resected and retrieved. OV 05.01.24; Pt continues to have episodes of choking and vomiting. Since her EGD she has had two episodes of choking. She has not been able to identify foodsthat trigger it but it is sometimes meat. She has had two episodes of heartburn since her EGD. She has been taking pantoprazole 40 mg just once a day. *start amitriptyline 10 mg daily *amitriptyline discontinued [facility] admission 06.06.24-06.08.24 w/ severe hypomagnesia, hypocalcemia, and diverticulitis after presentation to the ED with confusion. OV 1.17.25; Pt continues to have issues with swallowing. She is having issues with all foods and has not identified any specific triggers. She continues taking pantoprazole 40 mg daily. Denies n/v, constipation, diarrhea or abd pain. [facility] Medical History Cancer Thyroid disease Ambulates with cane History of renal disease TIA (transient ischemic attack) Acute diverticulitis Wears glasses Wears dentures Arthritis Low iron Anemia High cholesterol Migraine headache Restless legs Difficulty chewing History of diverticulitis Heartburn Gastric reflux Former smoker On home oxygen therapy Shortness of breath on exertion Chronic cough History of edema History of echocardiogram History of stress test Cardiology follow-up encounter Hypertension Chronic hypoxic respiratory failure History of diabetes mellitus History of hypertension Diverticulitis History of chronic heart failure History of COPD COPD (chronic obstructive pulmonary disease) Anemia Chronic heart failure with preserved ejection fraction (HFpEF) Hyperlipidemia Right lumbar radiculopathy CKD (chronic kidney disease), stage III Hypertension Chronic kidney disease PAD (peripheral artery disease) Renal cyst History of TIA (transient ischemic attack) Bilateral carotid artery stenosis Claudication RLS (restless legs syndrome) Diverticulosis TIA (transient ischemic attack) Vertigo Leg edema Dyslipidemia Home Medications ?Medication ?Instructions ?Recorded ?Last Taken ?Type atorvastatin 40 mg tablet 40 mg PO QHS cholesterol 01/3010/04/23 21:55 History clopidogrel 75 mg tablet 75 mg PO DAILY BLOOD THINNER 02/22/16 09/21/24 History albuterol sulfate 90 mcg/actuation 2 puff inhalation B ID PRN 03/16/18 09/27/24 History aerosol inhaler shortness of breath or wheez ing pramipexole 1.5 mg tablet 1.5 mg PO QHS restless leg s yndrome 08/18/23 10/04/23 21:55 History budesonide 0.5 mg/2 mL suspension 0.25 mg inhalation B ID breathing 09/09/23 09/27/24 Rx for nebulization 30 days #0 mL polysaccharide iron complex 150 mg 150 mg PO DAILY sup plement 30 days 10/12/23 09/21/24 Rx iron capsule (Ferrex) #30 caps acetaminophen 500 mg tablet 1,000 mg PO Q6H PRN pain 0 02/14/24 Unknown History arformoterol 15 mcg/2 mL solution 15 mcg inhalation BI D breathing 02/14/24 09/27/24 History for nebulization duloxetine 20 mg capsule,delayed 60 mg PO DAILY mental health 02/14/24 04/19/24 History release spironolactone 25 mg tablet 25 mg PO QDAY diuretic Unknown History cholecalciferol (vitamin D3) 125 125 mcg PO DAILY 30 d ays #30 caps 06/08/24 Unknown Rx mcg (5,000 unit) capsule carvedilol 12.5 mg tablet 25 mg PO BID 09/24/24 History furosemide 40 mg tablet 40 mg PO Q12H FLUID RETENTIO N 09/24/24 Unknown History magnesium 200 mg tablet 400 mg PO DAILY 09/24/24 Unk nown History pantoprazole 40 mg tablet,delayed 40 mg PO Q12H reflux 09/24/24 Unknown History release potassium chloride 20 mEq 20 meq PO DAILY supplement 0 09/24/24 Unknown History tablet,extended release(part/cryst) Allergy/AdvReac Type Severity Reaction Status Date / Time lisinopril Allergy edema Verified 09/27/24 06:01 aspirin AdvReac Upset Verified 09/27/24 06:01 Stomach Family History Mother Heart disease Surgical History History of thyroid surgery History of carotid angioplasty History of kidney stones History of basal cell carcinoma excision History of total hysterectomy Social History household members: none housing: house Smoking Status: Former smoker how long ago did patient quit smokin years ago alcohol intake: current alcohol intake frequency: holidays/special occasions only details: rare substance use type: does not use caffeine: Yes Type: coffee Number of servings: 1 ROS Constitutional Constitutional: Denies fatigue, fever(s), poor appetite, weight gain or weight loss Gastrointestinal Gastrointestinal: Denies belching, bloating, change in bowel habits, change in stool character, chewing difficulty, coffee ground emesis, constipation, cramping, diarrhea, dyspepsia, dysphagia, early satiety, excessive flatus, fecalincontinence, heartburn, hematemesis, hematochezia, hemorrhoids, loose stools, melena, nausea, odynophagia, rectal bleeding, tenesmus, vomiting or weight changes Vital Signs Vital Signs Vital Signs: 09/27/24 06:03 09/27/24 06:03 09/27/24 06:33 Temperature 97.8 F 97.8 F Temperature Source Temporal Pulse Rate 75 75 Respiratory Rate 18 18 Respiratory Pattern Normal Blood Pressure 157/57 H 157/57 H Blood Pressure Mean 90 Blood Pressure Source Monitor Blood Pressure Position Semi-Fowlers Blood Pressure Location Left Arm Pulse Ox 98 98 Oxygen Delivery Method Room Air Nasal Cannula Oxygen Flow Rate (L/min) 4 Weight Weight: 144 lb 13.499 oz Body Mass Index (BMI) 26.0 Physical Exam Const alert, oriented x3, no apparent distress and healthy appearing General Appearance: cooperative GI normal to inspection, nondistended, normoactive bowel sounds, soft to palpation,non-tender and non-distended Percussion: normal to percussion Rectal Exam: deferred Assessment & Plan Assessment/Plan (1) Achalasia: PLAN: Assessment and Plan Assessment and Plan (1) Esophageal dysmotility: Status: Acute Plan: This is an 88 yo female pt with difficulty swallowing due to abnormal esophagealmotility. Last EGD in April 2024 showing spastic lower esophageal sphincter and extra peristaltic waves in the esophagus. This was dilated. She has been on treatment for esophageal dysmotility with amitriptyline which has not provided relief. She will undergo EGD with botox injections for treatment. She is agreeable to this. -EGD with botox and dilation -Continue PPI -f/u after procedure (2) Achalasia: Status: Acute 09/27/24 0643 <Electronically signed by Teodoro Real DO> Cosigner Signature (if applicable): CC: Dr. Viktoriya Manzo MD; Teodoro Real DO~ Signed [facility] Work Phone: 1(537) 344-174903-13-2025 Consult note Author Zan Peraza [facility] Note Date/Time September 27, 2024 6:3 3am [facility] Medical Records Department [address] [place] [address] Pre-Anesthesia Evaluation 09/27/2425 MR#: [id number] Acct: [id number] Name: DICK ARTIS Rep #:[id number] : 1935 89 From: Zan Peraza MD PCP: Dr. Vitkoriya Manzo MD Status:REG S DC Y Race: C Location: [place] [address] ASA Classification* ASA Classification ASA Classification: 3 (Please keep patient oxygenated with face mask. COPD on 2 L at home ) Assessment & Plan Anesthesia* Anesthesia Assessment Anesthesia Assessment: Discussed sedation and/or anesthesia options, risks, benefits, and alternatives with patient/parents/legal guardian/POA. Questions invited. The patient/parents/legal guardian/POA seems to understand and agrees to proceedwith anesthesia plan. Reviewed the physical assessment, medical history, allergy history and patient home medications list prior to surgery/procedure/anesthetic and documented any changes. Performed airway and anesthesia risk assessments. Anesthesia Type Anesthesia Type: General History Source History Obtained from:: Patient and Chart Anesthesia Focused Assessment* Temperature: 97.8 F Pulse Rate: 75 Blood Pressure: 157/57 Respiratory Rate: 18 Pulse Ox: 98 Oxygen Delivery Method: Nasal Cannula Oxygen Flow Rate (L/min): 4 Airway Assessment Mouth opens: >3 cm Mallampati Score: III Teeth Condition: Dentures (taken out) Neck Range of motion (ROM): Full ROM Focused Labs Anesthesia Preop lab: CBC WBC 6.4 K/mm3 (4.4-11.0) 06/08/24 07:12 06/08/24 RBC 3.21 M/mm3 (4.2-5.4) L 06/08/24 07:12 06/08/24 Hgb 10.0 g/dL (12.0-15.0) L 06/08/24 07:12 4 Hct 31.9 % (37-47) L 06/08/24 07:12 06/08/24 Plt Count 152 K/mm3 (150-450) 06/08/24 07:12 06/08/24 CHEMISTRY Potassium 4.1 mmol/L (3.5-5.1) 06/08/24 07:12 06/08/24 Sodium 143 mmol/L (136-145) 06/08/24 07:12 06/08/24 Magnesium 2.1 mg/dL (1.6-2.6) 06/07/24 05:46 06/07/24 Phosphorus 3.3 mg/dL (2.5-4.9) 06/08/24 07:12 06/08/24 BUN 28 mg/dL (7-18) H 06/08/24 07:12 06/08/24 Creatinine 1.15 mg/dL (0.55-1.02) H 06/08/24 07:12 Glucose 96 mg/dL (74-106) 06/08/24 07:12 06/08/24 POC Glucose 100 mg/dL (74-106) 06/08/24 11:33 06/08/24 TSH 1.820 uIU/mL (0.358-3.740) 06/06/24 18:39 05/19 COAG PT 14.6 SECONDS (11.7-14.9) 08/18/23 19:22 Pre-Assessment Diagnosis/Proposed Procedure Planned Operative Procedure(s): EGD Anesthesia History Anesthesia History - artist relationship manager: Anesthesia History - artist relationship manager Hx Hospitalization Yes: INFECTION 09/24/24 13:52 Any Problems With Anesthesia No 09/24/24 13:52 Cholinesterase deficiency No 09/24/24 13:52 You/Your Family Experience No 09/24/24 13:52 fever (hyperthermia) with Relationship Recent Exposure to Contagious No 09/27/24 06:03 Disease Does patient have nerve No 09/24/24 13:52 stimulator Patient instructed to have device shut off --Does patient have Pacemaker No 09/27/24 06:03 or ICD? When Was Last Pacemaker Check QUESTION #4 FULL TEXT: You/Your Family Experience fever (hyperthermia) with Anesthesia Last Oral Intake Last Oral intake: Last Oral Intake NPO since 00:00 09/27/24 06:03 Meds taken in AM with sips of Yes 09/27/24 06:03 water? Meds patient instructed to see medlist 09/27/24 06:03 take am of surgery PONV PONV - artist relationship manager: PONV - artist relationship manager Female Yes 09/24/24 13:52 HX of Motion Sickness No 09/24/24 13:52 HX of N/V After Surgery No 09/24/24 13:52 Non-Smoker Yes 09/24/24 13:52 Duration of Surgery greater No 09/24/24 13:52 than 60 minutes Number of Risk Factors 2 09/24/24 13:52 PONV Score Moderate Risk 09/24/24 13:52 Height & Weight Height & Weight: Anesthesia: Height & Weight Height 5 ft 2.5 in 09/27/24 06:03 Weight: 65.7 kg 09/27/24 06:03 Body Mass Index (BMI) 26.0 09/27/24 06:03 Respiratory Assessment Respiratory Assessment - artist relationship manager: Respiratory Tract Infection Hx - artist relationship manager Hx Respiratory Tract Infection No 09/24/24 13:52 STOP Sleep Apnea STOP Sleep Apnea - artist relationship manager: STOP Sleep Apnea - artist relationship manager Hx Hypertension Yes 09/24/24 13:52 Hx Sleep Apnea No 09/24/24 13:52 CPAP No 04/19/24 09:02 BIPAP No 11/03/23 18:31 Do you snore loudly (louder No 09/24/24 13:52 than talking or can be heard Do you often feel tired/ No 09/24/24 13:52 fatigued/ sleepy during daytime? Has anyone observed you stop No 09/24/24 13:52 breathing during sleep? STOP Results Negative 09/24/24 13:52 QUESTION #5 FULL TEXT : Do you snore loudly (louder than talking or can be heard through closed doors)? 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 Specify any problems Hx of Preganancy in last 3 No 09/24/24 13:52 Months Nurse Filling Out Transfusion VLEHMAN 09/24/24 13:52 & Questions: Date: 09/24/24 09/24/24 13:52 Time: 14:14 09/24/24 13:52 Patient unable to answer at this time (ie. 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 Hx Now No 09/24/24 13:52 Gestational Age (in weeks): EDC: Hx Hx Para Hx Section SAB No 09/24/24 13:52 Active Medications Active Medications: Current Medications Generic Name Dose Route Start Last Admin Trade Name Freq PRN Reason Stop Dose Admin Botulinum Toxin Type A 100 units 09/27/24 06:30 Botulinum Toxin A 100 Units Vial IJ 09/27/24 06:31 PREOP ONE [facility] Medical History Cancer Thyroid disease Ambulates with cane History of renal disease TIA (transient ischemic attack) Acute diverticulitis Wears glasses Wears dentures Arthritis Low iron Anemia High cholesterol Migraine headache Restless legs Difficulty chewing History of diverticulitis Heartburn Gastric reflux Former smoker On home oxygen therapy Shortness of breath on exertion Chronic cough History of edema History of echocardiogram History of stress test Cardiology follow-up encounter Hypertension Chronic hypoxic respiratory failure History of diabetes mellitus History of hypertension Diverticulitis History of chronic heart failure History of COPD COPD (chronic obstructive pulmonary disease) Anemia Chronic heart failure with preserved ejection fraction (HFpEF) Hyperlipidemia Right lumbar radiculopathy CKD (chronic kidney disease), stage III Hypertension Chronic kidney disease PAD (peripheral artery disease) Renal cyst History of TIA (transient ischemic attack) Bilateral carotid artery stenosis Claudication RLS (restless legs syndrome) Diverticulosis TIA (transient ischemic attack) Vertigo Leg edema Dyslipidemia Home Medications ?Medication ?Instructions ?Recorded ?Last Taken ?Type atorvastatin 40 mg tablet 40 mg PO QHS cholesterol 01/3010/04/23 21:55 History clopidogrel 75 mg tablet 75 mg PO DAILY BLOOD THINNER 02/22/16 09/21/24 History albuterol sulfate 90 mcg/actuation 2 puff inhalation B ID PRN 03/16/18 09/27/24 History aerosol inhaler shortness of breath or wheez ing pramipexole 1.5 mg tablet 1.5 mg PO QHS restless leg s yndrome 08/18/23 10/04/23 21:55 History budesonide 0.5 mg/2 mL suspension 0.25 mg inhalation B ID breathing 09/09/23 09/27/24 Rx for nebulization 30 days #0 mL polysaccharide iron complex 150 mg 150 mg PO DAILY sup plement 30 days 10/12/23 09/21/24 Rx iron capsule (Ferrex) #30 caps acetaminophen 500 mg tablet 1,000 mg PO Q6H PRN pain 0 02/14/24 Unknown History arformoterol 15 mcg/2 mL solution 15 mcg inhalation BI D breathing 02/14/24 09/27/24 History for nebulization duloxetine 20 mg capsule,delayed 60 mg PO DAILY mental health 02/14/24 04/19/24 History release spironolactone 25 mg tablet 25 mg PO QDAY diuretic Unknown History cholecalciferol (vitamin D3) 125 125 mcg PO DAILY 30 d ays #30 caps 06/08/24 Unknown Rx mcg (5,000 unit) capsule carvedilol 12.5 mg tablet 25 mg PO BID 09/24/24 History furosemide 40 mg tablet 40 mg PO Q12H FLUID RETENTIO N 09/24/24 Unknown History magnesium 200 mg tablet 400 mg PO DAILY 09/24/24 Unk nown History pantoprazole 40 mg tablet,delayed 40 mg PO Q12H reflux 09/24/24 Unknown History release potassium chloride 20 mEq 20 meq PO DAILY supplement 0 09/24/24 Unknown History tablet,extended release(part/cryst) Allergy/AdvReac Type Severity Reaction Status Date / Time lisinopril Allergy edema Verified 09/27/24 06:01 aspirin AdvReac Upset Verified 09/27/24 06:01 Stomach Family History Mother Heart disease Surgical History History of thyroid surgery History of carotid angioplasty History of kidney stones History of basal cell carcinoma excision History of total hysterectomy Social History household members: none housing: house Smoking Status: Former smoker how long ago did patient quit smokin years ago alcohol intake: current alcohol intake frequency: holidays/special occasions only details: rare substance use type: does not use caffeine: Yes Type: coffee Number of servings: 1 Prior Cardiac Testing/Procedures Prior Cardiac Testing/Procedures: Echocardiogram (Interpretation Summary Normal left ventricle. Left ventricular systolic function is normal. The left ventricular ejection fraction is 70 %. Pulmonary artery systolic pressure is 30 mmHg.) Addt'l Information Additional Findings: EKG: SR with PACs, RBBB Review of Systems (Anesthesia) ROS Narrative System reviewed and no additional complaints, except as documented. Physical Exam Const alert, oriented x3 and average body habitus Resp normal respiratory effort and clear to auscultation bilaterally Resp Narrative: Decreased breath sounds Auscultation: clear to auscultation bilaterally Cardio regular rate, regular rhythm, no murmurs and diaphoretic 09/27/24 0633 <Electronically signed by Zan Peraza MD> Date _ Zan Peraza MD Cosigner Signature: Date CC: ~ Signed [facility] Work Phone: 1(117) 616-476803-13-2025 Evaluation note* Diagnosis Onset Date Resolution Status Admit Date Achalasia acute September 27 5:33am Bilateral carotid bruits acute October 17, 2024 1:41pm High cholesterol acute October d2024 1:41pm History of chronic heart failure acute October 17, 2024 1:41pm On home oxygen therapy acute 2024 1:41pm Hypertension chronic October 17, 2 025 1:41pm [facility] Work Phone: 1(673) 513-387803-13-2025 Evaluation note* Diagnosis Onset Date Resolution Status Admit Date Achalasia acute September 27 5:33am Bilateral carotid bruits acute October 17, 2024 1:41pm High cholesterol acute October d2024 1:41pm History of chronic heart failure acute October 17, 2024 1:41pm On home oxygen therapy acute Ap ril 2024 1:41pm Hypertension chronic October 17, 2 025 1:41pm Colitis acute December 18, 2024 8:55am GI (gastrointestinal bleed) acute December 18, 2024 8:55am Diarrhea resolved December 18, 2024 8:55am [facility] Work Phone: 1(201) 430-415703-13-2025 Evaluation note* Diagnosis Onset Date Resolution Status Admit Date Achalasia acute September 27 5:33am Bilateral carotid bruits acute October 17, 2024 1:41pm High cholesterol acute October 1:41pm History of chronic heart failure acute October 17, 2024 1:41pm On home oxygen therapy acute Ap ril 2024 1:41pm Hypertension chronic October 17 025 1:41pm Diarrhea resolved December 18, 2024 8:55am Colitis inactive December 18, 2024 8:55am GI (gastrointestinal bleed) inactive December 18, 2024 8:55am Anemia acute January 01 1:51pm GI bleed acute January 01 1:51pm [facility] Work Phone: 1(549) 761-890003-13-2025 Consult note [facility] Medical Records Department [address] [place] [address] Anesthesia Postop Eval I 09/27/24709 MR#: [id number] Acct: [id number] Name: DICK ARTIS Rep #:[id number] : 1935 89 From: Juan Carlos Grant PCP: Dr. Viktoriya Manzo MD Status:REG S DC Y Race: C Location: [place] [address] Anesthesia: Postop Eval I Current Vital Signs Temperature: 97.2 F Pulse Rate: 67 Blood Pressure: 77/47 Respiratory Rate: 16 Pulse Ox: 98 Oxygen Delivery Method: Nasal Cannula Oxygen Flow Rate (L/min): 2 Assessment Airway patent: Yes Spontaneous unlabored respirations: Yes Mental status: Asleep nausea: No Vomiting: No Anesthesia Complication: Yes Anesthesia Complication Comment:: hypotension Fluid Hydration Crystalloid volume administer (ml): 30 Total IV fluid infused: 30 Progress Note Anesthesia document: Postop Eval 1 completed: Yes 09/27/24711 > Date _ Juan Carlos Lombardo Signature: Date CC: ~ Signed [facility]03-13-2025 Procedure note [facility] Medical Records Department [address] [place] [address] EGD Report MR#: [id number] Acct: [id number] Name: DICK ARTIS Rep #:[id number] : 1935 89 From: Teodoro Real DO PCP: Dr. Viktoriya Manzo MD Status:REG S DC Patient Name: Dick Artis Procedure Date: 09/27/2024 6:30 AM Date of : 1935 Age: 89 Procedure: Upper GI endoscopy Indications: Dysphagia Providers: Teodoro Real DO Referring MD: Viktoriya Manzo Medicines: Monitored Anesthesia Care Patient Profile: This is an 89 year old female. Refer to note in patient chart for documentation of history and physical. Patient has symptoms of dysphagia with both liquids and solids. Complications: No immediate complications. Procedure: Pre-Anesthesia Assessment: - Prior to the procedure, a History and Physical was performed, and patient medications and allergies were reviewed. The patient is competent. The risks and benefits of the procedure and the sedation options and risks were discussed with the patient. All questions were answered and informed consent was obtained. Patient identification and proposed procedure were verified by the physician in the pre-procedure area. Mental Status Examination: alert and oriented. Airway Examination: normal oropharyngeal airway and neck mobility. Respiratory Examination: clear to auscultation. CV Examination: normal. Prophylactic Antibiotics: The patient does not require prophylactic antibiotics. Prior Anticoagulants: The patient has taken no anticoagulant or antiplatelet agents. ASA Grade Assessment: II - A patient with mild systemic disease. After reviewing the risks and benefits, the patient was deemed in satisfactory condition to undergo the procedure. The anesthesia plan was to use monitored anesthesia care (MAC). Immediately prior to administration of medications, the patient was re-assessed for adequacy to receive sedatives. The heart rate, respiratory rate, oxygen saturations, blood pressure, adequacy of pulmonary ventilation, and response to care were monitored throughout the procedure. The physical status of the patient was re-assessed after the procedure. After obtaining informed consent, the endoscope was passed under direct vision. Throughout the procedure, the patient's blood pressure, pulse, and oxygen saturations were monitored continuously. The Endoscope was introduced through the mouth, and advanced to the second part of duodenum. The upper GI endoscopy was accomplished without difficulty. The patient tolerated the procedure well. Scope In: 6:53:20 AM Scope Out: 7:00:31 AM Total Procedure Duration Time 0 hours 7 minutes 11 seconds Findings: No appreciable esophageal motility was noted. In addition, a hypertonic lower esophageal sphincter was found. There was moderate resistance to endoscope advancement into the stomach. The Z-line was regular. The gastroesophageal junction and cardia were normal on retroflexed view. Area was successfully injected with 100 units botulinum toxin. No gross lesions were noted in the entire examined stomach. No gross lesions were noted in the first portion of the duodenum. Impression: - Achalasia. Injected with botulinum toxin. - No gross lesions in the entire stomach. - No gross lesions in the first portion of the duodenum. - No specimens collected. Recommendation: - Discharge patient to home. - Resume previous diet. - Continue present medications. Procedure Code(s): --- Professional --- 70039, Esophagogastroduodenoscopy, flexible, transoral; with directed submucosal injection(s), any substance CPT copyright 2021 [employer]. All rights reserved. The codes documented in this report are preliminary and upon mixing picker tender review may be revised to meet current compliance requirements. Teodoro Real DO 09/27/2024 7:09:56 AM This report has been signed electronically. Number of Addenda: 0 Note Initiated On: 09/27/2024 6:30 AM 09/27/24 0710 Date _ Teodoro Real DO Cosigner Signature: Date (if indicated) CC: Dr. Viktoriya Manzo MD; Teodoro Real DO ~ Date Dictated: 09/27/24629 Date Transcribed: 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: RF Signed [facility]03-13-2025 Procedure note [facility] Medical Records Department [address] [place] [address] Operative Report - CC Letter MR#: [id number] Acct: [id number] Name: DICK ARTIS Rep #:[id number] : 1935 89 From: Teodoro Real DO PCP: Dr. Viktoriya Manzo MD Status:REG S DC 09/27/2024 Viktoriya Manzo [address] [place] [address] Re : Upper GI endoscopy procedure for Dick Artis Dear Dr. Manzo This procedure was performed on September. My impressions and recommendations are as follows: Impressions : - Achalasia. Injected with botulinum toxin. - No gross lesions in the entire stomach. - No gross lesions in the first portion of the duodenum. - No specimens collected. Recommendations : - Discharge patient to home. - Resume previous diet. - Continue present medications. My findings are described in the full procedure note, which is enclosed. If I can be of further assistance, please feel free to contact me at . Sincerely, Teodoro Real DO 09/27/2024 7:09:56 AM This report has been signed electronically. 09/27/24709 Date _ Teodoro Benzigner Signature: Date (if indicated) CC: Dr. Viktoriya Manzo MD; Teodoro Real DO ~ Date Dictated: 09/27/24629 Date Transcribed: 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: RF Signed [facility]03-13-2025 History and physical note [facility] Medical Records Department [address] [place] [address] History & Physical Exam 09/27/24640 MR#: [id number] Acct: [id number] Name: DICK ARTIS Rep #:[id number] : 1935 89 From: Teodoro Real DO PCP: Dr. Viktoriya Manzo MD Status:REG S DC Location: [place] [address] HPI - General General Date of Admission: 09/27/24 Date of Service: 09/27/24 Chief Complaint: dysphagia HPI Narrative DICK ARTIS, is a 89 F who presents for treatment of achalasia PT was hospitalized in August of 2023 for NSTEMI and COPD exacerbation. She was found to have down trending hemoglobin and underwent EGD. EGD .08.10; - LA Grade D erosive esophagitis with bleeding. Treated with a heater probe. - Non-bleeding gastric ulcers with no stigmata of bleeding. Biopsied. - Acute duodenitis. Biopsied OV 9..24 ; Patient has been doing well from GI standpoint up until recently when she had an episode of choking. She was eating a chicken wing when she stated to choke on it. She presented to the ED for this and was ultimately sent home after normal chest x-ray. After being sent home she had numerous episodes of vomiting which subsided after a few days. Since then she has had no further problems besides some break through heartburn. She continues to take Pantoprazole daily. EGD 04.19.24; - Abnormal esophageal motility, consistent with aperistalsis. Dilated. - Small hiatal hernia. - Gastric mucosal variant. Biopsied. - A few duodenal polyps. Resected and retrieved. OV 24; Pt continues to have episodes of choking and vomiting. Since her EGD she has had two episodes of choking. She has not been able to identify foodsthat trigger it but it is sometimes meat.She has had two episodes of heartburn since her EGD. She has been taking pantoprazole 40 mg just once a day. *start amitriptyline 10 mg daily *amitriptyline discontinued [facility] admission 06.06.24-06.08.24 w/ severe hypomagnesia, hypocalcemia, and diverticulitis after presentation to the ED with confusion. OV 1..25; Pt continues to have issues with swallowing. She is having issues with all foods and has not identified any specific triggers. She continues taking pantoprazole 40 mg daily. Denies n/v, constipation, diarrhea or abd pain. [facility] Medical History Cancer Thyroid disease Ambulates with cane History of renal disease TIA (transient ischemic attack) Acute diverticulitis Wears glasses Wears dentures Arthritis Low iron Anemia High cholesterol Migraine headache Restless legs Difficulty chewing History of diverticulitis Heartburn Gastric reflux Former smoker On home oxygen therapy Shortness of breath on exertion Chronic cough History of edema History of echocardiogram History of stress test Cardiology follow-up encounter Hypertension Chronic hypoxic respiratory failure History of diabetes mellitus History of hypertension Diverticulitis History of chronic heart failure History of COPD COPD (chronic obstructive pulmonary disease) Anemia Chronic heart failure with preserved ejection fraction (HFpEF) Hyperlipidemia Right lumbar radiculopathy CKD (chronic kidney disease), stage III Hypertension Chronic kidney disease PAD (peripheral artery disease) Renal cyst History of TIA (transient ischemic attack) Bilateral carotid artery stenosis Claudication RLS (restless legs syndrome) Diverticulosis TIA (transient ischemic attack) Vertigo Leg edema Dyslipidemia Home Medications ?Medication ?Instructions ?Recorded ?Last Taken ?Type atorvastatin 40 mg tablet 40 mg PO QHS cholesterol 01/3010/04/23 21:55 History clopidogrel 75 mg tablet 75 mg PO DAILY BLOOD THINNER 02/22/16 09/21/24 History albuterol sulfate 90 mcg/actuation 2 puff inhalation B ID PRN 03/16/18 09/27/24 History aerosol inhaler shortness of breath or wheez ing pramipexole 1.5 mg tablet 1.5 mg PO QHS restless leg s yndrome 08/18/23 10/04/23 21:55 History budesonide 0.5 mg/2 mL suspension 0.25 mg inhalation B ID breathing 09/09/23 09/27/24 Rx for nebulization 30 days #0 mL polysaccharide iron complex 150 mg 150 mg PO DAILY sup plement 30 days 10/12/23 09/21/24 Rx iron capsule (Ferrex) #30 caps acetaminophen 500 mg tablet 1,000 mg PO Q6H PRN pain 0 02/14/24 Unknown History arformoterol 15 mcg/2 mL solution 15 mcg inhalation BI D breathing 02/14/24 09/27/24 History for nebulization duloxetine 20 mg capsule,delayed 60 mg PO DAILY mental health 02/14/24 04/19/24 History release spironolactone 25 mg tablet 25 mg PO QDAY diuretic Unknown History cholecalciferol (vitamin D3) 125 125 mcg PO DAILY 30 d ays #30 caps 06/08/24 Unknown Rx mcg (5,000 unit) capsule carvedilol 12.5 mg tablet 25 mg PO BID 09/24/24 History furosemide 40 mg tablet 40 mg PO Q12H FLUID RETENTIO N 09/24/24 Unknown History magnesium 200 mg tablet 400 mg PO DAILY 09/24/24 Unk nown History pantoprazole 40 mg tablet,delayed 40 mg PO Q12H reflux 09/24/24 Unknown History release potassium chloride 20 mEq 20 meq PO DAILY supplement 0 09/24/24 Unknown History tablet,extended release(part/cryst) Allergy/AdvReac Type Severity Reaction Status Date / Time lisinopril Allergy edema Verified 09/27/24 06:01 aspirin AdvReac Upset Verified 09/27/24 06:01 Stomach Family History Mother Heart disease Surgical History History of thyroid surgery History of carotid angioplasty History of kidney stones History of basal cell carcinoma excision History of total hysterectomy Social History household members: none housing: house Smoking Status: Former smoker how long ago did patient quit smokin years ago alcohol intake: current alcohol intake frequency: holidays/special occasions only details: rare substance use type: does not use caffeine: Yes Type: coffee Number of servings: 1 ROS Constitutional Constitutional: Denies fatigue, fever(s), poor appetite, weight gain or weight loss Gastrointestinal Gastrointestinal: Denies belching, bloating, change in bowel habits, change in stool character, chewing difficulty, coffee ground emesis, constipation, cramping, diarrhea, dyspepsia, dysphagia, earlysatiety, excessive flatus, fecalincontinence, heartburn, hematemesis, hematochezia, hemorrhoids, loose stools, melena, nausea, odynophagia, rectal bleeding, tenesmus, vomiting or weight changes Vital Signs Vital Signs Vital Signs: 09/27/24 06:03 09/27/24 06:03 09/27/24 06:33 Temperature 97.8 F 97.8 F Temperature Source Temporal Pulse Rate 75 75 Respiratory Rate 18 18 Respiratory Pattern Normal Blood Pressure 157/57 H 157/57 H Blood Pressure Mean 90 Blood Pressure Source Monitor Blood Pressure Position Semi-Fowlers Blood Pressure Location Left Arm Pulse Ox 98 98 Oxygen Delivery Method Room Air Nasal Cannula Oxygen Flow Rate (L/min) 4 Weight Weight: 144 lb 13.499 oz Body Mass Index (BMI) 26.0 Physical Exam Const alert, oriented x3, no apparent distress and healthy appearing General Appearance: cooperative GI normal to inspection, nondistended, normoactive bowel sounds, soft to palpation,non-tender and non-distended Percussion: normal to percussion Rectal Exam: deferred Assessment & Plan Assessment/Plan (1) Achalasia: PLAN: Assessment and Plan Assessment and Plan (1) Esophageal dysmotility: Status: Acute Plan: This is an 88 yo female pt with difficulty swallowing due to abnormal esophagealmotility. Last EGD in April 2024 showing spastic lower esophageal sphincter and extra peristaltic waves in the esophagus. This was dilated. She has been on treatment for esophageal dysmotility with amitriptyline whichhas not provided relief. She will undergo EGD with botox injections for treatment. She is agreeableto this. -EGD with botox and dilation -Continue PPI -f/u after procedure (2) Achalasia: Status: Acute 09/27/24 0643 Cosigner Signature (if applicable): CC: Dr. Viktoriya Manzo MD; Teodoro Friend, DO~ Signed [facility]03-13-2025 [facility] Medical Records Department [address] [place] [address] History Physical Exam 09/27/24 0641 MR#: [id number] Acct: [id number] Name: DICK ARTIS Rep #: [id number] : 1935 89 From: Teodoro Friend DO PCP: Dr. Viktoriya Manzo MD [place] [facility] [place] [address] HPI - General General Date of Admission: 09/27/24 Date of Service: 09/27/24 Chief Complaint: dysphagia HPI Narrative DICK ARITS, is a 89 F who presents for treatment of achalasia PT was hospitalized in August of 2023 for NSTEMI and COPD exacerbation. She was found to have down trending hemoglobin and underwent EGD. EGD .08.10; - LA Grade D erosive esophagitis with bleeding. Treated with a heater probe. - Non-bleeding gastric ulcers with no stigmata of bleeding. Biopsied. - Acute duodenitis. Biopsied OV 9..24 ; Patient has been doing well from GI standpoint up until recently when she had an episode of choking. She was eating a chicken wing when she stated to choke on it. She presented to the ED for this and was ultimately sent home after normal chest x-ray. After being sent home she had numerous episodes of vomiting which subsided after a few days. Since then she has had no further problems besides some break through heartburn. She continues to take Pantoprazole daily. EGD 04.19.24; - Abnormal esophageal motility, consistent with aperistalsis. Dilated. - Small hiatal hernia. - Gastric mucosal variant. Biopsied. - A few duodenal polyps. Resected and retrieved. OV 05.01.24; Pt continues to have episodes of choking and vomiting. Since her EGD she has had two episodes of choking. She has not been able to identify foods that trigger it but it is sometimes meat. She has had two episodes of heartburn since her EGD. She has been taking pantoprazole 40 mg just once a day. *start amitriptyline 10 mg daily *amitriptyline discontinued [facility] admission 06.06.24-06.08.24 w/ severe hypomagnesia, hypocalcemia, and diverticulitis after presentation to the ED with confusion. OV 1.17.25; Pt continues to have issues with swallowing. She is having issues with all foods and has not identified any specific triggers. She continues taking pantoprazole 40 mg daily. Denies n/v, constipation, diarrhea or abd pain. [facility] Medical History Cancer Thyroid disease Ambulates with cane History of renal disease TIA (transient ischemic attack) Acute diverticulitis Wears glasses Wears dentures Arthritis Low iron Anemia High cholesterol Migraine headache Restless legs Difficulty chewing History of diverticulitis Heartburn Gastric reflux Former smoker On home oxygen therapy Shortness of breath on exertion Chronic cough History of edema History of echocardiogram History of stress test Cardiology follow-up encounter Hypertension Chronic hypoxic respiratory failure History of diabetes mellitus History of hypertension Diverticulitis History of chronic heart failure History of COPD COPD (chronic obstructive pulmonary disease) Anemia Chronic heart failure with preserved ejection fraction (HFpEF) Hyperlipidemia Right lumbar radiculopathy CKD (chronic kidney disease), stage III Hypertension Chronic kidney disease PAD (peripheral artery disease) Renal cyst History of TIA (transient ischemic attack) Bilateral carotid artery stenosis Claudication RLS (restless legs syndrome) Diverticulosis TIA (transient ischemic attack) Vertigo Leg edema Dyslipidemia Home Medications ???Medication ???Instructions ???Recorded ???Last Taken ???Type atorvastatin 40 mg tablet 40 mg PO QHS cholesterol 02/22/16 10/04/23 21:55 History clopidogrel 75 mg tablet 75 mg PO DAILY BLOOD THINNER 02/2109/21/24 History albuterol sulfate 90 mcg/actuation 2 puff inhalation BID PRN 09/27/24 History aerosol inhaler shortness of breath or wheezing pramipexole 1.5 mg tablet 1.5 mg PO QHS restless leg syndrom e 08/18/23 10/04/23 21:55 History budesonide 0.5 mg/2 mL suspension 0.25 mg inhalation BID breathing 09/09/23 09/27/24 Rx for nebulization 30 days #0 mL polysaccharide iron complex 150 mg 150 mg PO DAILY supplement 30 da ys 10/12/23 09/21/24 Rx iron capsule (Ferrex) #30 caps acetaminophen 500 mg tablet 1,000 mg PO Q6H PRN pain 02/14/24 Unknown History arformoterol 15 mcg/2 mL solution 15 mcg inhalation BID breathing 0 02/14/24 09/27/24 History for nebulization duloxetine 20 mg capsule,delayed 60 mg PO DAILY mental health 02/1304/19/24 History release spironolactone 25 mg tablet 25 mg PO QDAY diuretic 02/14/24 Un known History cholecalciferol (vitamin D3) 125 125 mcg PO DAILY 30 days #30 caps 06/08/24 Unknown Rx mcg (5,000 unit) capsule carvedilol 12.5 mg tablet 25 mg PO BID (more content not included)...[facility]03-13-2025 Consult note [facility] Medical Records Department [address] [place] [address] Pre-Anesthesia Evaluation 09/27/24 0625 MR#: [id number] Acct: [id number] Name: DICK ARTIS Rep #:[id number] : 1935 89 From: Zan Peraza MD PCP: Dr. Viktoriya Manzo MD Status:REG S DC Y Race: C Location: [place] [address] ASA Classification* ASA Classification ASA Classification: 3 (Please keep patient oxygenated with face mask. COPD on 2 L at home ) Assessment & Plan Anesthesia* Anesthesia Assessment Anesthesia Assessment: Discussed sedation and/or anesthesia options, risks, benefits, and alternatives with patient/parents/legal guardian/POA. Questions invited. The patient/parents/legal guardian/POA seems to understand and agrees to proceedwith anesthesia plan. Reviewed the physical assessment, medical history, allergy history and patient home medications list prior to surgery/procedure/anesthetic and documented any changes. Performed airway and anesthesia risk assessments. Anesthesia Type Anesthesia Type: General History Source History Obtained from:: Patient and Chart Anesthesia Focused Assessment* Temperature: 97.8 F Pulse Rate: 75 Blood Pressure: 157/57 Respiratory Rate: 18 Pulse Ox: 98 Oxygen Delivery Method: Nasal Cannula Oxygen Flow Rate (L/min): 4 Airway Assessment Mouth opens: >3 cm Mallampati Score: III Teeth Condition: Dentures (taken out) Neck Range of motion (ROM): Full ROM Focused Labs Anesthesia Preop lab: CBC WBC 6.4 K/mm3 (4.4-11.0) 06/08/24 07:12 06/08/24 RBC 3.21 M/mm3 (4.2-5.4) L 06/08/24 07:12 06/08/24 Hgb 10.0 g/dL (12.0-15.0) L 06/08/24 07:12 4 Hct 31.9 % (37-47) L 06/08/24 07:12 06/08/24 Plt Count 152 K/mm3 (150-450) 06/08/24 07:12 06/08/24 CHEMISTRY Potassium 4.1 mmol/L (3.5-5.1) 06/08/24 07:12 06/08/24 Sodium 143 mmol/L (136-145) 06/08/24 07:12 06/08/24 Magnesium 2.1 mg/dL (1.6-2.6) 06/07/24 05:46 06/07/24 Phosphorus 3.3 mg/dL (2.5-4.9) 06/08/24 07:12 06/08/24 BUN 28 mg/dL (7-18) H 06/08/24 07:12 06/08/24 Creatinine 1.15 mg/dL (0.55-1.02) H 06/08/24 07:12 Glucose 96 mg/dL (74-106) 06/08/24 07:12 06/08/24 POC Glucose 100 mg/dL (74-106) 06/08/24 11:33 06/08/24 TSH 1.820 uIU/mL (0.358-3.740) 06/06/24 18:39 05/19 COAG PT 14.6 SECONDS (11.7-14.9) 08/18/23 19:22 Pre-Assessment Diagnosis/Proposed Procedure Planned Operative Procedure(s): EGD Anesthesia History Anesthesia History - artist relationship manager: Anesthesia History - artist relationship manager Hx Hospitalization Yes: INFECTION 09/24/24 13:52 Any Problems With Anesthesia No 09/24/24 13:52 Cholinesterase deficiency No 09/24/24 13:52 You/Your Family Experience No 09/24/24 13:52 fever (hyperthermia) with Relationship Recent Exposure to Contagious No 09/27/24 06:03 Disease Does patient have nerve No 09/24/24 13:52 stimulator Patient instructed to have device shut off --Does patient have Pacemaker No 09/27/24 06:03 or ICD? When Was Last Pacemaker Check QUESTION #4 FULL TEXT: You/Your Family Experience fever (hyperthermia) with Anesthesia Last Oral Intake Last Oral intake: Last Oral Intake NPO since 00:00 09/27/24 06:03 Meds taken in AM with sips of Yes 09/27/24 06:03 water? Meds patient instructed to see medlist 09/27/24 06:03 take am of surgery PONV PONV - artist relationship manager: PONV - artist relationship manager Female Yes 09/24/24 13:52 HX of Motion Sickness No 09/24/24 13:52 HX of N/V After Surgery No 09/24/24 13:52 Non-Smoker Yes 09/24/24 13:52 Duration of Surgery greater No 09/24/24 13:52 than 60 minutes Number of Risk Factors 2 09/24/24 13:52 PONV Score Moderate Risk 09/24/24 13:52 Height & Weight Height & Weight: Anesthesia: Height & Weight Height 5 ft 2.5 in 09/27/24 06:03 Weight: 65.7 kg 09/27/24 06:03 Body Mass Index (BMI) 26.0 09/27/24 06:03 Respiratory Assessment Respiratory Assessment - artist relationship manager: Respiratory Tract Infection Hx - artist relationship manager Hx Respiratory Tract Infection No 09/24/24 13:52 STOP Sleep Apnea STOP Sleep Apnea - artist relationship manager: STOP Sleep Apnea - artist relationship manager Hx Hypertension Yes 09/24/24 13:52 Hx Sleep Apnea No 09/24/24 13:52 CPAP No 04/19/24 09:02 BIPAP No 11/03/23 18:31 Do you snore loudly (louder No 09/24/24 13:52 than talking or can be heard Do you often feel tired/ No 09/24/24 13:52 fatigued/ sleepy during daytime? Has anyone observed you stop No 09/24/24 13:52 breathing during sleep? STOP Results Negative 09/24/24 13:52 QUESTION #5 FULL TEXT : Do you snore loudly (louder than talking or can be heard through closeddoors)? 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 Specify any problems Hx of Preganancy in last 3 No 09/24/24 13:52 Months Nurse Filling Out Transfusion VLEHMAN 09/24/24 13:52 & Questions: Date: 09/24/24 09/24/24 13:52 Time: 14:14 09/24/24 13:52 Patient unable to answer at this time (ie. 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 Hx Now No 09/24/24 13:52 Gestational Age (in weeks): EDC: Hx Hx Para Hx Section SAB No 09/24/24 13:52 Active Medications Active Medications: Current Medications Generic Name Dose Route Start Last Admin Trade Name Freq PRN Reason Stop Dose Admin Botulinum Toxin Type A 100 units 09/27/24 06:30 Botulinum Toxin A 100 Units Vial IJ 09/27/24 06:31 PREOP ONE [facility] Medical History Cancer Thyroid disease Ambulates with cane History of renal disease TIA (transient ischemic attack) Acute diverticulitis Wears glasses Wears dentures Arthritis Low iron Anemia High cholesterol Migraine headache Restless legs Difficulty chewing History of diverticulitis Heartburn Gastric reflux Former smoker On home oxygen therapy Shortness of breath on exertion Chronic cough History of edema History of echocardiogram History of stress test Cardiology follow-up encounter Hypertension Chronic hypoxic respiratory failure History of diabetes mellitus History of hypertension Diverticulitis History of chronic heart failure History of COPD COPD (chronic obstructive pulmonary disease) Anemia Chronic heart failure with preserved ejection fraction (HFpEF) Hyperlipidemia Right lumbar radiculopathy CKD (chronic kidney disease), stage III Hypertension Chronic kidney disease PAD (peripheral artery disease) Renal cyst History of TIA (transient ischemic attack) Bilateral carotid artery stenosis Claudication RLS (restless legs syndrome) Diverticulosis TIA (transient ischemic attack) Vertigo Leg edema Dyslipidemia Home Medications ?Medication ?Instructions ?Recorded ?Last Taken ?Type atorvastatin 40 mg tablet 40 mg PO QHS cholesterol 01/3010/04/23 21:55 History clopidogrel 75 mg tablet 75 mg PO DAILY BLOOD THINNER 02/22/16 09/21/24 History albuterol sulfate 90 mcg/actuation 2 puff inhalation B ID PRN 03/16/18 09/27/24 History aerosol inhaler shortness of breath or wheez ing pramipexole 1.5 mg tablet 1.5 mg PO QHS restless leg s yndrome 08/18/23 10/04/23 21:55 History budesonide 0.5 mg/2 mL suspension 0.25 mg inhalation B ID breathing 09/09/23 09/27/24 Rx for nebulization 30 days #0 mL polysaccharide iron complex 150 mg 150 mg PO DAILY sup plement 30 days 10/12/23 09/21/24 Rx iron capsule (Ferrex) #30 caps acetaminophen 500 mg tablet 1,000 mg PO Q6H PRN pain 0 02/14/24 Unknown History arformoterol 15 mcg/2 mL solution 15 mcg inhalation BI D breathing 02/14/24 09/27/24 History for nebulization duloxetine 20 mg capsule,delayed 60 mg PO DAILY mental health 02/14/24 04/19/24 History release spironolactone 25 mg tablet 25 mg PO QDAY diuretic Unknown History cholecalciferol (vitamin D3) 125 125 mcg PO DAILY 30 d ays #30 caps 06/08/24 Unknown Rx mcg (5,000 unit) capsule carvedilol 12.5 mg tablet 25 mg PO BID 09/24/24 History furosemide 40 mg tablet 40 mg PO Q12H FLUID RETENTIO N 09/24/24 Unknown History magnesium 200 mg tablet 400 mg PO DAILY 09/24/24 Unk nown History pantoprazole 40 mg tablet,delayed 40 mg PO Q12H reflux 09/24/24 Unknown History release potassium chloride 20 mEq 20 meq PO DAILY supplement 0 09/24/24 Unknown History tablet,extended release(part/cryst) Allergy/AdvReac Type Severity Reaction Status Date / Time lisinopril Allergy edema Verified 09/27/24 06:01 aspirin AdvReac Upset Verified 09/27/24 06:01 Stomach Family History Mother Heart disease Surgical History History of thyroid surgery History of carotid angioplasty History of kidney stones History of basal cell carcinoma excision History of total hysterectomy Social History household members: none housing: house Smoking Status: Former smoker how long ago did patient quit smokin years ago alcohol intake: current alcohol intake frequency: holidays/special occasions only details: rare substance use type: does not use caffeine: Yes Type: coffee Number of servings: 1 Prior Cardiac Testing/Procedures Prior Cardiac Testing/Procedures: Echocardiogram (Interpretation Summary Normal left ventricle. Left ventricular systolic function is normal. The left ventricular ejection fraction is 70 %. Pulmonaryartery systolic pressure is 30 mmHg.) Addt'l Information Additional Findings: EKG: SR with PACs, RBBB Review of Systems (Anesthesia) ROS Narrative System reviewed and no additional complaints, except as documented. Physical Exam Const alert, oriented x3 and average body habitus Resp normal respiratory effort and clear to auscultation bilaterally Resp Narrative: Decreased breath sounds Auscultation: clear to auscultation bilaterally Cardio regular rate, regular rhythm, no murmurs and diaphoretic 09/27/24 0633 > Date _ Zan Peraza MD Cosigner Signature: Date CC: ~ Signed [facility]03-04-2025 NotePatient Outreach (INTMMN) DICK ARTIS ([id number]) 1935 F Date Time Provider Department 09/18/24 VIKTORIYA MANZO During your visit today, we recorded the following information about you: Allergies As of Date: 09/18/2024 Noted Allergy Reaction AMLODIPINE 02/16/2016 7 - Swelling Comments: Lower leg edema. ASPIRIN 05/19/2005 16 - Unknown LISINOPRIL 09/06/2011 3 - Cough REQUIP (ROPINIROLE) 09/26/2007 14 - Other: See Comments Comments: Very anxious Date Reviewed: 07/06/2024 Reviewed by: Kiki Khanna LPN - Fully Assessed Visit Diagnosis:Mixed hyperlipidemia [E78.2] Order(s):LIPID PANEL BASIC [SQLIPB] Order #: [id number] FUTURE Prescriptions as of 09/21/2024 - budesonide (PULMICORT) 0.5 mg/2 mL nebulizer solution USE 1 VIAL IN NEBULIZER EVERY 12 HOURS OVER 5-15 MINUTES - magnesium oxide (MAG-OX) 400 mg (241.3 mg magnesium) tablet Take 1 tablet by mouth once daily. - pramipexole (MIRAPEX) 1.5 mg tablet Take 1 tablet by mouth daily at bedtime. - spironolactone (ALDACTONE) 25 mg tablet Take 1 tablet by mouth once daily. - DULoxetine (CYMBALTA) 60 mg capsule Take 1 capsule by mouth once daily. - furosemide (LASIX) 40 mg tablet Take 1 tablet by mouth two times a day. - potassium chloride 20 mEq/15 mL solution Take 15 mL by mouth once daily. - pantoprazole DR (PROTONIX) 40 mg tablet Take 1 tablet by mouth once daily. - carvedilol (COREG) 25 mg tablet Take 1 tablet by mouth two times a day with meals. - iron polysaccharide complex (FERREX-150) 150 mg iron capsule Take 1 capsule by mouth once daily. - Compression Socks, Medium misc 2 Each once daily. Or size to fit. 10-20 mmHg. On in a.m., off in evening. - arformoterol (BROVANA) 15 mcg/2 mL nebulizer solution Inhale 2 mL as instructed every 12 hours. - OXYGEN, HOME THERAPY, 2 L/min by Nasal Cannula route as directed. - acetaminophen (TYLENOL) 500 mg tablet Take 1,000 mg by mouth every 6 hours as needed for pain (EVERY 6 HOURS NEEDED FOR PAIN). - albuterol HFA (VENTOLIN HFA) 90 mcg/actuation inhaler Inhale 2 Puffs as instructed every 4 hours as needed for wheezing/shortness of breath. 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] 05/24/2008 HTN (hypertension), benign [I10] 08/12/2009 Hypokalemia [E87.6] 08/12/2009 COPD (chronic obstructive pulmonary disease) [J*08/24/2010 S/P unilateral salpingo-oophorectomy [Z90.721] 02/18/2011 S/P WILFREDO (total abdominal hysterectomy) [Z90.710]02/18/2011 Hyperlipidemia [E78.5] 04/21/2011 Hypertension [I10] 04/21/2011 Vitamin D deficiency [E55.9] 03/06/2012 Nonspecific abnormal finding in stool contents *03/31/2012 02/08/2024 Acute gastritis without mention of hemorrhage [*03/31/2012 02/08/2024 Calculi, ureter [N20.1] 06/02/2012 HTN (hypertension) [I10] 12/11/2014 04/07/2015 Essential hypertension [I10] 04/07/2015 Mixed simple and mucopurulent chronic bronchiti*01/10/2016 Mixed hyperlipidemia [E78.2] 01/10/2016 Herpes zoster without complication [B02.9] 02/28/2016 02/08/2024 Bifascicular block [I45.2] 10/11/2016 Obesity, Class I, BMI 30-34.9 [E66.811] 07/30/2018 Stage 3b chronic kidney disease (HCC) [N18.32] 07/30/2018 TIA (transient ischemic attack) [G45.9] 05/26/2020 Carotid artery stenosis [I65.29] 01/23/2021 PAD (peripheral artery disease) (HCC) [I73.9] 11/11/2021 Chronic bilateral thoracic back pain [M54.6, G8*04/04/2023 Lumbar pain [M54.50] 04/04/2023 Osteopenia of lumbar spine [M85.88] 05/23/2023 Type 2 diabetes mellitus with hyperglycemia, wi*10/19/2023 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.*11/30/2023 Encounter Status:Closed by [email or web address] on 09/21/24[facility] 09-17-2024 Telephone encounter Note* Telephone Encounter - Angélica Franco LPN - 09/17/2024 12:54 PM EST [facility] 04/25/24 Patient phones requesting refills as follows: Requested Prescriptions Pending Prescriptions Disp Refills budesonide (PULMICORT) 0.5 mg/2 mL nebulizer solution [Pharmacy Med Name: Budesonide 0.5 MG/2ML Inhalation Suspension] 120 mL 0 Sig: USE 1 VIAL IN NEBULIZER EVERY 12 HOURS OVER 5-15 MINUTES Please review and advise. Angélica Franco LPN [facility]03-03-2025 Miscellaneous Notes* Telephone Encounter - Angélica Franco LPN - 09/17/2024 12:54 PM EST [facility] 04/25/24 Patient phones requesting refills as follows: Requested Prescriptions Pending Prescriptions Disp Refills budesonide (PULMICORT) 0.5 mg/2 mL nebulizer solution [Pharmacy Med Name: Budesonide 0.5 MG/2ML Inhalation Suspension] 120 mL 0 Sig: USE 1 VIAL IN NEBULIZER EVERY 12 HOURS OVER 5-15 MINUTES Please review and advise. [facility]élica Franco LPN [facility] Tele[facility] encounter Note * Telephone Encounter - Angélica Franco LPN - 08/21/2024 8:30 AM EST [facility]: 04/25/24 Patient phones requesting refills as follows: Requested Prescriptions Pending Prescriptions Disp Refills budesonide (PULMICORT) 0.5 mg/2 mL nebulizer solution [Pharmacy Med Name: Budesonide 0.5 MG/2ML Inhalation Suspension] 120 mL 0 Sig: USE 1 VIAL IN NEBULIZER EVERY 12 HOURS OVER 5-15 MINUTES Please review and advise. Angélica Franco LPN [facility]02-04-2025 Miscellaneous Notes* Telephone Encounter - Angélica Franco LPN - 08/21/2024 8:30 AM EST [facility]: 04/25/24 Patient phones requesting refills as follows: Requested Prescriptions Pending Prescriptions Disp Refills budesonide (PULMICORT) 0.5 mg/2 mL nebulizer solution [Pharmacy Med Name: Budesonide 0.5 MG/2ML Inhalation Suspension] 120 mL 0 Sig: USE 1 VIAL IN NEBULIZER EVERY 12 HOURS OVER 5-15 MINUTES Please review and advise. Angélica Franco LPN [facility] Evaluation note* Diagnosis Onset Date Resolution Status Admit Date Achalasia acute August 03, 2024 9:50am Esophageal dysmotility acute [facility] 2024 9:50am Achalasia acute September 27 5:33am Bilateral carotid bruits acute October 17, 2024 1:41pm High cholesterol acute October 1:41pm History of chronic heart failure acute October 17, 2024 1:41pm On home oxygen therapy acute Ap 2024 1:41pm Hypertension chronic October 17, 025 1:41pm [facility] Work Phone: [phone]) 561-215501-14-2025 Telephone encounter Note* Telephone Encounter - Geri Marte MA - 07/31/2024 8:45 AM EST Patient phones requesting refills as follows: Requested Prescriptions Pending Prescriptions Disp Refills magnesium oxide (MAG-OX) 400 mg (241.3 mg magnesium) tablet 30 tablet 11 Sig: Take 1 tablet by mouth once daily. Please review and advise. Geri Marte MA [facility]01-14-2025 Miscellaneous Notes* Telephone Encounter - Geri Marte MA - 07/31/2024 8:45 AM EST Patient phones requesting refills as follows: Requested Prescriptions Pending Prescriptions Disp Refills magnesium oxide (MAG-OX) 400 mg (241.3 mg magnesium) tablet 30 tablet 11 Sig: Take 1 tablet by mouth once daily. Please review and advise. Geri Marte MA documented [facility] encounterP[facility]12[facility]2024 NoteHNO ID: [id number] Author: VIKTORIYA MANZO MD Service: ? Author Type: Physician Type: Progress Notes Filed: 07/06/2024 17:58 Note Text: Reason for Visit Patient presents with: Hospital F/U Dick Artis is a 88 year old female who presents here today for Above Complaints.. Health Maintenance Dilated Retinal Exam Diabetic Foot Exam Shingrix Vaccine(1 of 2) DTaP,Tdap,Td Vaccine(2 - Td or Tdap) Covid-19 Vaccine( season) EHSAN Buchanan is a very pleasant 88-year-old woman with a past medical history of restless leg syndrome hypertension, hyperlipidemia, peripheral arterial disease, COPD, CKD stage III back pain from lumbar stenosis, obesity, TIA, carotid artery stenosis. Here with son Jac. She was admitted in the hospital on June 06 for symptoms of hallucinations, abnormal mental status changes despite being on medications for UTI. In the hospital she was found to have severe hypomagnesemia and severe hypokalemia. She was treated with IV magnesium sulfate and it brought up her serum magnesium the etiology was thought to be from diuretics. Her calcium was low and so she was given calcium gluconate and the hypercalcemia resolved. Ultrasound of the abdomen pelvis was done and her renal mass was increased to 5 cm, she did talk to her front end mechanic about that and has a follow-up with him. She also has a left adrenal nodule which is likely thought to be an Dene [place]. She was also found to have superior endplate mild compression fracture of the L1. In October 2023 she was diagnosed with COPD with hypoxic respiratory failurePatient is on oxygen, for 6 months.. since getting out of the hospital . Failed the 6 mins walk, needs 2 litres of o2 when sitting, after doing a nocturnal pulse ox they figured that she needs to use 4 liters of oxygen. Hallucinations: notes that ambien and antibiotics mix made her have hallucinations. She heard people talking like she was in a motel When she came home from the hospital. She is still hearing noises but it is much decreased. Probably couple times a week. Not as severe as it was in the past. Insomnia: she is not a good sleeper. She does to bed at 6:30. She wakes up around 11 or 12 in the mid night. She goes back right to bed. She plays bingo a couple of hours at night time . She wakes up at 3/4 am and takes her medication. She does not drink much coffee or tea now. Before the hospital she was drinking around 2 cups in the morning. She drinks sparrow coke around a can and a half a day. Does not eat much chocolate. 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 She has a tv but does not watch it all the time. She has always been this way. She has RLS. She has 30 pack years of smoking at the most She has no concerns with memory. No problem-specific Assessment AND Plan notes found for this encounter. PAST MEDICAL HISTORY Diagnosis Date Basal cell carcinoma Carotid stenosis CEA left Chronic hypoxemic respiratory failure (HCC) CKD (chronic kidney disease) stage 3, GFR 30-59 ml/min (HCC) 07/30/2018 COPD (chronic obstructive pulmonary disease) (HCC) Diastolic heart failure (HCC) Diverticulosis of colon (without mention of hemorrhage) Diverticulosis Hypertension Rolly Smith MD NSTEMI (non-ST elevated myocardial infarction) (HCC) Osteoporosis, unspecified Personal history of colonic polyps Colon polyps Restless legs syndrome (RLS) Spinal stenosis TIA (transient ischemic attack) 2008 Plavix Type 2 diabetes mellitus with hyperglycemia, without long-term current use of insulin ([facility]) 10/19/2023 PAST SURGICAL HISTORY Procedure Laterality Date CAROTID ENDARTERECTOMY Left 01/23/2021 COLONOSCOPY FLX DX W/COLLJ SPEC WHEN PFRMD 03/25/2004 Colonoscopy CYSTOSCOPY 06/02/2012 left ureteral calculi ESOPHAGOGASTRODUODENOSCOPY TRANSORAL DIAGNOSTIC 03/25/2004 EGD PAST SURGICAL HISTORY OF 04/15/2004 right inferior parathyroidectomy TOTAL ABDOMINAL HYSTERECT W/WO RMVL TUBE OVARY 05/18/1971 Hysterectomy, WILFREDO, LSO carcinoma insitu FAMILY HISTORY Problem Relation Age of Onset Diabetes Mother Heart Mother None Father hx unknown Heart Brother Diabetes Brother Cancer Brother Lung, 1/2 brother. Asthma No Family History COPD No Family History Emphysema No Family History Social History Tobacco Use Smoking status: Former Current packs/day: 0.00 Average packs/day: 1 pack/day for 53.1 years (53.1 ttl pk-yrs) Types: Cigarettes Start date: 08/11/1963 Quit date: 10/04/2016 Years since quittin.7 Smokeless tobacco: Never Tobacco comments: 10-20 year period in 30-40s when quit. Vaping Use Vaping status: Never Used Substance Use Topics Alcohol use: Not Currently Comment: very seldom Drug use: Never Past medical history, appointments, medications, allergies reviewed. Pertinent Lab/Diagnostic Studies are reviewed and discussed today Current Outpatient Medications: (more content not included)...[facility]12-20-2024 History of Present illness Narrative* Viktoriya Manzo MD - 07/06/2024 1:07 PM EST Reason for Visit Patient presents with: [facility] F/U Dick Artis is a 88 year old female who presents here today for Above Complaints.. Health Maintenance Dilated Retinal Exam Diabetic Foot Exam Shingrix Vaccine(1 of 2) DTaP,Tdap,Td Vaccine(2 - Td or Tdap) Covid-19 Vaccine( season) EHSAN Buchanan is a very pleasant 88-year-old woman with a past medical history of restless leg syndrome hypertension, hyperlipidemia, peripheral arterial disease, COPD, CKD stage III back pain from lumbar stenosis, obesity, TIA, carotid artery stenosis. Here with son Jac. She was admitted in the hospital on June 06 for symptoms of hallucinations, abnormal mental status changes despite being on medications for UTI. In the hospital she was found to have severe hypomagnesemia and severe hypokalemia. She was treated with IV magnesium sulfate and it brought up her serum magnesium the etiology was thought to be from diuretics. Her calcium was low and so she was given calcium gluconate and the hypercalcemia resolved. Ultrasound of the abdomen pelvis was done and her renal mass was increased to 5 cm, she did talk toher front end mechanic about that and has a follow-up with him. She also has a left adrenal nodule which is likely thought to be an Dene [place]. She was also found to have superior endplate mild compression fracture of the L1. In October 2023 she was diagnosed with COPD with hypoxic respiratory failurePatient is on oxygen, for6 months.. since getting out of the hospital . Failed the 6 mins walk, needs 2 litres of o2 when sitting, after doing a nocturnal pulse ox they figured that she needs to use 4 liters of oxygen. Hallucinations: notes that ambien and antibiotics mix made her have hallucinations. She heard people talking like she was in a motel When she came home from the hospital. She is still hearing noises but it is much decreased. Probably couple times a week. Not as severe as it was in the past. Insomnia: she is not a good sleeper. She does to bed at 6:30. She wakes up around 11 or 12 in the mid night. She goes back right to bed. She plays bingo a couple of hours at night time . She wakes upat 3/4 am and takes her medication. She does not drink much coffee or tea now. Before the hospital she was drinking around 2 cups in the morning. She drinks sparrow coke around a can and a half a day. Does not eat much chocolate. 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 She has a tv but does not watch it all the time. She has always been this way. She has RLS. She has 30 pack years of smoking at the most She has no concerns with memory. No problem-specific Assessment & Plan notes found for this encounter. PAST MEDICAL HISTORY Diagnosis Date Basal cell carcinoma Carotid stenosis CEA left Chronic hypoxemic respiratory failure (HCC) CKD (chronic kidney disease) stage 3, GFR 30-59 ml/min ([facility]) 07/30/2018 COPD (chronic obstructive pulmonary disease) ([facility]) Diastolic heart failure ([facility]) Diverticulosis of colon (without mention of hemorrhage) Diverticulosis Hypertension Rolly Smith MD NSTEMI (non-ST elevated myocardial infarction) ([facility]) Osteoporosis, unspecified Personal history of colonic polyps Colon polyps Restless legs syndrome (RLS) Spinal stenosis TIA (transient ischemic attack) 2008 Plavix Type 2 diabetes mellitus with hyperglycemia, without long-term current use of insulin ([facility]) 10/19/2023 PAST SURGICAL HISTORY Procedure Laterality Date CAROTID ENDARTERECTOMY Left 01/23/2021 COLONOSCOPY FLX DX W/COLLJ SPEC WHEN PFRMD 03/25/2004 Colonoscopy CYSTOSCOPY 06/02/2012 left ureteral calculi ESOPHAGOGASTRODUODENOSCOPY TRANSORAL DIAGNOSTIC 03/25/2004 EGD PAST SURGICAL HISTORY OF 04/15/2004 right inferior parathyroidectomy TOTAL ABDOMINAL HYSTERECT W/WO RMVL TUBE OVARY 05/18/1971 Hysterectomy, WILFREDO, LSO carcinoma insitu FAMILY HISTORY Problem Relation Age of Onset Diabetes Mother Heart Mother None Father hx unknown Heart Brother Diabetes Brother Cancer Brother Lung, 1/2 brother. Asthma No Family History COPD No Family History Emphysema No Family History Social History Tobacco Use Smoking status: Former Current packs/day: 0.00 Average packs/day: 1 pack/day for 53.1 years (53.1 ttl pk-yrs) Types: Cigarettes Start date: 08/11/1963 Quit date: 10/04/2016 Years since quittin.7 Smokeless tobacco: Never Tobacco comments: 10-20 year period in 30-40s when quit. Vaping Use Vaping status: Never Used Substance Use Topics Alcohol use: Not Currently Comment: very seldom Drug use: Never Past medical history, appointments, medications, allergies reviewed. Pertinent Lab/Diagnostic Studies are reviewed and discussed today Current Outpatient Medications: pramipexole (MIRAPEX) 1.5 mg tablet spironolactone (ALDACTONE) 25 mg tablet DULoxetine (CYMBALTA) 60 mg capsule furosemide (LASIX) 40 mg tablet potassium chloride 20 mEq/[address] (PROTONIX) 40 mg tablet carvedilol (COREG) 25 mg tablet iron polysaccharide complex (FERREX-150) 150 mg iron capsule Compression Socks, Medium misc arformoterol (BROVANA) 15 mcg/2 mL nebulizer solution OXYGEN, HOME THERAPY, acetaminophen (TYLENOL) 500 mg tablet albuterol HFA (VENTOLIN HFA) 90 mcg/actuation inhaler budesonide (PULMICORT) 0.5 mg/2 mL nebulizer solution atorvastatin (LIPITOR) 40 mg tablet clopidogrel (PLAVIX) 75 mg tablet Review of Systems CONSTITUTIONAL: No fevers, chills night sweats, unintended weight loss CARDIOVASCULAR: No chest pain, dyspnea, palpitations, orthopnea, PND, ankle edema. PULM: No dyspnea, unexplained cough. GI: No dysphagia/odynophagia, problematic reflux, constipation, diarrhea, changes in stool habits, hematochezia, melena. : No new urinary complaints, including dysuria, gross hematuria or pyuria. NEURO: No new balance problems, peripheral weakness/paresthesias or numbness of concern. Lurias test: with some prompting she did it Was able to go back on the months of the year without any issues. Physical Exam BP 142/52 (BP Site: Left Arm) Pulse 80 Ht 157.5 cm (5' 2) Wt 64.7 kg (142 lb 9.6 oz) SpO2 95% BMI 26.08 kg/m General appearance: Well appearing, alert, in no acute distress, well nourished. Skin: Skin color, texture, turgor normal, no suspicious rashes or lesions Head: Normocephalic, no masses, lesions, tenderness or abnormalities Eyes: Anicteric sclera. Pupils are equally round and reactive to light. Extraocular movements are intact. Lungs: Lungs clear to auscultation. No wheezing, rhonchi, rales Heart: RRR without murmur, gallop, or rubs. Extremities: No deformities, edema, skin discoloration, clubbing or cyanosis. Good capillary refill. ASSESSMENT/PLAN: 1. Essential hypertension - ICD9: 401.9, ICD10: I10 (primary diagnosis) - Controlled - Recommend home blood pressure monitoring, to bring results to next visit - Encouraged sodium restriction, DASH or Mediterranean diet - Recommend regular aerobic exercise 2. Mixed hyperlipidemia - ICD9: 272.2, ICD10: E78.2 - Controlled - Counseled on healthy diet and regular exercise 3. Chronic obstructive pulmonary disease, unspecified COPD type (HCC) - ICD9: 496, ICD10: J44.9 To continue the oxygen. She is on palliative care and they are taking good care of her. 4. Hypokalemia - ICD9: 276.8, ICD10: E87.6 - MAGNESIUM - BASIC METABOLIC PANEL 5. Auditory hallucinations - ICD9: 780.1, ICD10: R44.0 Have resolved after stopping the Ambien 6. Hypomagnesemia - ICD9: 275.2, ICD10: E83.42 Recheck levels 7. Renal mass - ICD9: 593.9, ICD10: N28.89 She has follow-up with nephro Viktoriya Manzo [facility] NoteHNO ID: [id number] Author: ALISON HI RN Service: ? Author Type: Registered Nurse Type: Progress Notes Filed: 07/06/2024 13:38 Note Text: CDM Telephonic Outreach Provider Action/FYI CDM: CKD, COPD 3rd Attempt, Lvm Instructed to contact PCP/Provider for symptom changes, concerns or needs. Contacted for: Routine Telephonic Outreach Contact made with patient: No, left message. Alison Hi RN July 05, 2024 5:33 [facility]12-19-2024 History of Present illness Narrative* Alison Hi RN - 07/05/2024 5:31 PM EST CDM Telephonic Outreach Provider Action/FYI CDM: CKD, COPD 3rd Attempt, Lvm Instructed to contact PCP/Provider for symptom changes, concerns or needs. Contacted for: Routine Telephonic Outreach Contact made with patient: No, left message. Alison Hi RN July 05, 2024 5:33 PM documented [facility] NotePatient Outreach ([facility]) DICK ARTIS ([id number]) 1935 F Date Time Provider Department 07/05/24 ALISON HI [facility] During your visit today, we recorded the following information about you: Alison Hi RN 07/06/2024 1:38 PM Signed CDM Telephonic Outreach Provider Action/FYI CDM: CKD, COPD 3rd Attempt, Lvm Instructed to contact PCP/Provider for symptom changes, concerns or needs. Contacted for: Routine Telephonic Outreach Contact made with patient: No, left message. Alison Hi RN July 05, 2024 5:33 PM Allergies As of Date: 07/05/2024 Noted Allergy Reaction AMLODIPINE 02/16/2016 7 - Swelling Comments: Lower leg edema. ASPIRIN 05/19/2005 16 - Unknown LISINOPRIL 09/06/2011 3 - Cough REQUIP (ROPINIROLE) 09/26/2007 14 - Other: See Comments Comments: Very anxious Date Reviewed: 04/25/2024 Reviewed by: Eboni Cooley, DEVANG - Fully Assessed Reason for Visit: CDM [Other] Cmt: Chronic Disease Management Routine Call Prescriptions as of 07/19/2024 - pramipexole (MIRAPEX) 1.5 mg tablet Take 1 tablet by mouth daily at bedtime. - spironolactone (ALDACTONE) 25 mg tablet Take 1 tablet by mouth once daily. - DULoxetine (CYMBALTA) 60 mg capsule Take 1 capsule by mouth once daily. - furosemide (LASIX) 40 mg tablet Take 1 tablet by mouth two times a day. - potassium chloride 20 mEq/15 mL solution Take 15 mL by mouth once daily. - pantoprazole DR (PROTONIX) 40 mg tablet Take 1 tablet by mouth once daily. - carvedilol (COREG) 25 mg tablet Take 1 tablet by mouth two times a day with meals. - iron polysaccharide complex (FERREX-150) 150 mg iron capsule Take 1 capsule by mouth once daily. - Compression Socks, Medium misc 2 Each once daily. Or size to fit. 10-20 mmHg. On in a.m., off in evening. - arformoterol (BROVANA) 15 mcg/2 mL nebulizer solution Inhale 2 mL as instructed every 12 hours. - OXYGEN, HOME THERAPY, 2 L/min by Nasal Cannula route as directed. - acetaminophen (TYLENOL) 500 mg tablet Take 1,000 mg by mouth every 6 hours as needed for pain (EVERY 6 HOURS NEEDED FOR PAIN). - albuterol HFA (VENTOLIN HFA) 90 mcg/actuation inhaler Inhale 2 Puffs as instructed every 4 hours as needed for wheezing/shortness of breath. 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] 05/24/2008 HTN (hypertension), benign [I10] 08/12/2009 Hypokalemia [E87.6] 08/12/2009 COPD (chronic obstructive pulmonary disease) [J*08/24/2010 S/P unilateral salpingo-oophorectomy [Z90.721] 02/18/2011 S/P WILRFEDO (total abdominal hysterectomy) [Z90.710]02/18/2011 Hyperlipidemia [E78.5] 04/21/2011 Hypertension [I10] 04/21/2011 Vitamin D deficiency [E55.9] 03/06/2012 Nonspecific abnormal finding in stool contents *03/31/2012 02/08/2024 Acute gastritis without mention of hemorrhage [*03/31/2012 02/08/2024 Calculi, ureter [N20.1] 06/02/2012 HTN (hypertension) [I10] 12/11/2014 04/07/2015 Essential hypertension [I10] 04/07/2015 Mixed simple and mucopurulent chronic bronchiti*01/10/2016 Mixed hyperlipidemia [E78.2] 01/10/2016 Herpes zoster without complication [B02.9] 02/28/2016 02/08/2024 Bifascicular block [I45.2] 10/11/2016 Obesity, Class I, BMI 30-34.9 [E66.811] 07/30/2018 Stage 3b chronic kidney disease (HCC) [N18.32] 07/30/2018 TIA (transient ischemic attack) [G45.9] 05/26/2020 Carotid artery stenosis [I65.29] 01/23/2021 PAD (peripheral artery disease) (HCC) [I73.9] 11/11/2021 Chronic bilateral thoracic back pain [M54.6, G8*04/04/2023 Lumbar pain [M54.50] 04/04/2023 Osteopenia of lumbar spine [M85.88] 05/23/2023 Type 2 diabetes mellitus with hyperglycemia, wi*10/19/2023 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.*11/30/2023 Encounter Status:Closed by ALISON HI on 07/06/24[facility]12-09-2024 NoteHNO ID: [id number] Author: HAYES SHARP RN Service: ? Author Type: Registered Nurse Type: Progress Notes Filed: 06/25/2024 14:58 Note Text: CDM Telephonic Outreach Provider Action/FYI Contacted for: Routine Telephonic Outreach Contact made with patient: No, left message. Hayes Sharp RN June 25, 2024 2:58 [facility]12-09-2024 History of Present illness Narrative* Hayes Sharp RN - 06/25/2024 2:56 PM EST CD Telephonic Outreach Provider Action/FYI Contacted for: Routine Telephonic Outreach Contact made with patient: No, left message. Hayes Sharp RN June 25, 2024 2:58 PM * Hayes Sharp RN - 06/22/2024 3:54 PM EST [facility] Telephonic Outreach Provider Action/FYI Contacted for: Routine Telephonic Outreach Contact made with patient: No, left message. Hayes Sharp RN June 22, 2024 3:56 PM documented in [facility]24 NoteHNO ID: [id number] Author: HAYES SHARP RN Service: ? Author Type: Registered Nurse Type: Progress Notes Filed: 06/25/2024 14:58 Note Text: CD Telephonic Outreach Provider Action/FYI Contacted for: Routine Telephonic Outreach Contact made with patient: No, left message. Hayes Sharp RN June 22, 2024 3:56 [facility]12-06-2024 NotePatient Outreach ([facility]) DICK ARTIS ([id number]) 1935 F Date Time Provider Department 06/22/24 HAYES SHARP [facility] During your visit today, we recorded the following information about you: Hayes Sharp RN 06/25/2024 2:58 PM Signed CDM Telephonic Outreach Provider Action/FYI Contacted for: Routine Telephonic Outreach Contact made with patient: No, left message. Hayes Sharp RN June 22, 2024 3:56 PM Hayes Sharp RN 06/25/2024 2:58 PM Signed CDM Telephonic Outreach Provider Action/FYI Contacted for: Routine Telephonic Outreach Contact made with patient: No, left message. Hayes Sharp RN June 25, 2024 2:58 PM Allergies As of Date: 06/22/2024 Noted Allergy Reaction AMLODIPINE 02/16/2016 7 - Swelling Comments: Lower leg edema. ASPIRIN 05/19/2005 16 - Unknown LISINOPRIL 09/06/2011 3 - Cough REQUIP (ROPINIROLE) 09/26/2007 14 - Other: See Comments Comments: Very anxious Date Reviewed: 04/25/2024 Reviewed by: Eboni Cooley RN - Fully Assessed Reason for Visit: Community Monitoring Outreach [Other] Prescriptions as of 06/25/2024 - pramipexole (MIRAPEX) 1.5 mg tablet Take 1 tablet by mouth daily at bedtime. - spironolactone (ALDACTONE) 25 mg tablet Take 1 tablet by mouth once daily. - zolpidem (AMBIEN) 10 mg Take 1 tablet by mouth at bedtime as needed for up to 180 days. - DULoxetine (CYMBALTA) 60 mg capsule Take 1 capsule by mouth once daily. - furosemide (LASIX) 40 mg tablet Take 1 tablet by mouth two times a day. - potassium chloride 20 mEq/15 mL solution Take 15 mL by mouth once daily. - pantoprazole DR (PROTONIX) 40 mg tablet Take 1 tablet by mouth once daily. - carvedilol (COREG) 25 mg tablet Take 1 tablet by mouth two times a day with meals. - iron polysaccharide complex (FERREX-150) 150 mg iron capsule Take 1 capsule by mouth once daily. - Compression Socks, Medium misc 2 Each once daily. Or size to fit. 10-20 mmHg. On in a.m., off in evening. - arformoterol (BROVANA) 15 mcg/2 mL nebulizer solution Inhale 2 mL as instructed every 12 hours. - OXYGEN, HOME THERAPY, 3 L/min by Nasal Cannula route as directed. - acetaminophen (TYLENOL) 500 mg tablet Take 1,000 mg by mouth every 6 hours as needed for pain (EVERY 6 HOURS NEEDED FOR PAIN). - albuterol HFA (VENTOLIN HFA) 90 mcg/actuation inhaler Inhale 2 Puffs as instructed every 4 hours as needed for wheezing/shortness of breath. 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] 05/24/2008 HTN (hypertension), benign [I10] 08/12/2009 Hypokalemia [E87.6] 08/12/2009 COPD (chronic obstructive pulmonary disease) [J*08/24/2010 S/P unilateral salpingo-oophorectomy [Z90.721] 02/18/2011 S/P WILFREDO (total abdominal hysterectomy) [Z90.710]02/18/2011 Hyperlipidemia [E78.5] 04/21/2011 Hypertension [I10] 04/21/2011 Vitamin D deficiency [E55.9] 03/06/2012 Nonspecific abnormal finding in stool contents *03/31/2012 02/08/2024 Acute gastritis without mention of hemorrhage [*03/31/2012 02/08/2024 Calculi, ureter [N20.1] 06/02/2012 HTN (hypertension) [I10] 12/11/2014 04/07/2015 Essential hypertension [I10] 04/07/2015 Mixed simple and mucopurulent chronic bronchiti*01/10/2016 Mixed hyperlipidemia [E78.2] 01/10/2016 Herpes zoster without complication [B02.9] 02/28/2016 02/08/2024 Bifascicular block [I45.2] 10/11/2016 Obesity, Class I, BMI 30-34.9 [E66.811] 07/30/2018 Stage 3b chronic kidney disease (HCC) [N18.32] 07/30/2018 TIA (transient ischemic attack) [G45.9] 05/26/2020 Carotid artery stenosis [I65.29] 01/23/2021 PAD (peripheral artery disease) (HCC) [I73.9] 11/11/2021 Chronic bilateral thoracic back pain [M54.6, G8*04/04/2023 Lumbar pain [M54.50] 04/04/2023 Osteopenia of lumbar spine [M85.88] 05/23/2023 Type 2 diabetes mellitus with hyperglycemia, wi*10/19/2023 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 Given message from provider's office. Patient verbalizes understanding. She declines appointment with another provider. She will see Dr. Manzo for Hospital F/U and is aware that Dr. Manzo is not accepting new patients. Appointment R/S to 40 minutes 07/06 @ 1 PM. Christina Campbell RN [facility]12-02-2024 Miscellaneous Notes* Telephone Encounter - Christina Campbell RN - 06/18/2024 5:54 PM EST Spoke with patient. Given message from provider's office. Patient verbalizes understanding. She declines appointment with another provider. She will see Dr. Manzo for Hospital F/U and is aware that Dr. Manzo is not accepting new patients. Appointment R/S to 40 minutes 07/06 @ 1 PM. Christina Campbell RN * Telephone Encounter - Viktoriya Manzo MD - 06/18/2024 4:38 PM EST Sorry I am not taking new patients. Regards, Viktoriya Manzo MD * Telephone Encounter - Natali Mcintosh RN - 06/18/2024 2:24 PM EST Called and spoke with pt. Pt seems to be doing okay at this time. Pt refuses offered hospital f/u appt earlier with either Dr. Dunn or Maddison Renteria. Pt states she has an appt with Dr. Manzo on 07/06 which is a 3 month f/u from her 04/06 appt with Rosaura Suárez. Pt asking if she can't just do the hospital f/u then. Pt states she only likes to see Rosaura and since she is out, pt had requested to see someone other than Dr. Dunn or Maddison Renteria. Pt is thinking about having Dr. Manzo be her physician now. Explained to pt that no providers are taking new patients and that is something that would have to be discussed with Dr. Manzo plus her appt on 07/06 is only for 20 mins. After discussion with management, will forward this information to Dr. Manzo to see how she would like to proceed. * Telephone Encounter - Natali Mcintosh RN - 06/18/2024 2:23 PM EST ----- Message from Maddison Narayanan APRN.CNS sent at 06/15/2024 4:19 PM EST ----- Recent hospital visit, does she need a sooner appt with Mady Dunn MD / team? Has a 07/[address] Manzo. [facility] Tele[facility] encounter Note * Telephone Encounter - Viktoriya Manzo MD - 06/18/2024 4:38 PM EST Sorry I am not taking new patients. Regards, Viktoriya Manzo MD [facility] Work Phone: 1(954) 622-124612-02-2024 Telephone encounter Note* Telephone Encounter - Natali Mcintosh RN - 06/18/2024 2:24 PM EST Called and spoke with pt. Pt seems to be doing okay at this time. Pt refuses offered hospital f/u appt earlier with either Dr. Dunn or Maddison Renteria. Pt states she has an appt with Dr. Manzo on 07/06 which is a 3 month f/u from her 04/06 appt with Rosaura Suárez. Pt asking if she can't just do the hospital f/u then. Pt states she only likes to see Rosaura and since she is out, pt had requested to see someone other than Dr. Dunn or Maddison Renteria. Pt is thinking about having Dr. Manzo be her physician now. Explained to pt that no providers are taking new patients and that is something that would have to be discussed with Dr. Manzo plus her appt on 07/06 is only for 20 mins. After discussion with management, will forward this information to Dr. Manzo to see how she would like to proceed. [facility]12-02[facility] Telephone encounter Note* Telephone Encounter - Natali Mcintosh RN - 06/18/2024 2:23 PM EST ----- Message from Maddison Narayanan APRN.CNS sent at 06/15/2024 4:19 PM EST ----- Recent hospital visit, does she need a sooner appt with Mady Dunn MD / team? Has a 07/[address] Manzo. [facility]11[facility]29[facility] Telephone encounter Note* Telephone Encounter - Spencer Boone MD - 06/15/2024 7:56 AM EST I received her CT and MRI from [place] Although 1 cyst is larger, the MRI is reassuring that these do not look like solid masses but lookslike cyst. We will continue to follow this. Schedule a renal ultrasound and appointment in 6 months [facility]11-29-2024 Miscellaneous Notes* Telephone Encounter - Spencer Boone MD - 06/15/2024 7:56 AM EST I received her CT and MRI from [place] Although 1 cyst is larger, the MRI is reassuring that these do not look like solid masses but lookslike cyst. We will continue to follow this. Schedule a renal ultrasound and appointment in 6 months [facility]11[facility]24 [facility] Medical Records Department [address] [place] [address] Discharge Summary 06/08/24 1220 MR#: [id number] Acct: [id number] Name: DICK ARTIS Rep #: [id number] : 1935 88 From: Juan Esteves MD PCP: WILMER Maynard Status:DIS IN Location: [facility] [id number] Providers Date of Admission: 06/06/24 Date of Discharge: 06/08/24 Primary Care Physician: WILMER Maynard Reason For Visit: HYPOMAGNESEMIA SEVERE HYPOCALCEMIA Diagnosis Discharge Diagnosis (1) Hypomagnesemia: Status: Acute Code(s): E83.42 - Hypomagnesemia (2) Hypocalcemia: Status: Acute Code(s): E83.51 - Hypocalcemia (3) Acute hypokalemia: Status: Acute Code(s): E87.6 - Hypokalemia (4) Dehydration: Status: Acute Code(s): E86.0 - Dehydration (5) Diarrhea: Status: Acute Code(s): R19.7 - Diarrhea, unspecified Qualifiers: Diarrhea type: unspecified type Qualified Code(s): R19.7 - Diarrhea, unspecified (6) Acute diverticulitis: Status: Acute Code(s): K57.92 - Diverticulitis of intestine, part unspecified, without perforation or abscess without bleeding (7) Renal mass, right: Status: Acute Code(s): N28.89 - Other specified disorders of kidney and ureter (8) Auditory hallucination: Status: Acute Code(s): R44.0 - Auditory hallucinations (9) Metabolic encephalopathy: Status: Acute Code(s): G93.41 - Metabolic encephalopathy (10) Adverse drug reaction: Status: Acute Code(s): T50.905A - Adverse effect of unspecified drugs, medicaments and biological substances, initial encounter Qualifiers: Encounter type: initial encounter Qualified Code(s): T50.905A - Adverse effect of unspecified drugs, medicaments and biological substances, initial encounter Plan 88-year-old woman was admitted with abnormal lab showing severe hypomagnesemia. Patient was seen by her doctor for auditory hallucinations, blurry vision bilaterally for last several days. 1. Severe hypomagnesemia of 0.5 mg/dL present on admission, probably due to diuretics- Admit to PCU. Give IV magnesium sulfate and then recheck level in a.m. to ensure improvement. 06/07: Electrolytes were replaced. Repeat magnesium is 2.1. Serum phosphorus 4.1. Probably due to diuretics 06/08: Acute hypomagnesemia resolved. Patient was given prescription for magnesium. Advised BMP, magnesium, phosphorus in 3 days follow-up PCP and advised to increase spironolactone dose and discontinue potassium supplement. 2. Severe hypocalcemia of 6.8 mg/dL present on admission complicating #1 - Give supplemental IV calcium gluconate 06/07 repeat calcium shows low 7.6 g%. IV calcium gluconate ordered. 06/08: Hypocalcemia resolved. Patient was given prescription for oral calcium supplement. 3. Hypokalemia of 3.2 mmol/L present on admission compounding #1 #2 - Give supplemental IV and oral KCl and then recheck BMP in a.m. to follow trend. 06/06: Hypokalemia resolved. Repeat potassium 3.9. 06/08: Patient on potassium supplement and spironolactone. 4. BERNARDO with elevated BUN/creatinine ratio of 25.3 present on admission in the setting of known CKD; stage IIIb likely due to adverse drug reaction to Lasix: Admitting BUNs/creatinine 42/1.66. Bicarb high 34.0 suggestive of metabolic alkalosis due to Lasix. Baseline creatinine 1.1-1.29. 06/07: Repeat BUN/creatinine 33/1.26. Continue holding Lasix. 06/08: Lasix changed from 40 mg twice daily to once daily, resume Lasix 40 mg daily from tomorrow a.m. 5. CT positive for Acute Diverticulitis with Nonbloody diarrhea. Incidentally noted new 4.3 cm Right Renal Mass and radiologist recommending MRI with and without contrast to further delineate lesion - Place on enteric precautions and check stool studies to evaluate for potential underlying infectious etiology. Start IV Rocephin and IV Flagyl to cover gram-negatives and anaerobes. Probiotics is ordered. 06/07: MRI abdomen shows 2 kidney cysts, Bosniak class II cyst as described. One 1.5 cm in upper pole of right kidney another 4 cm lesion in anterior aspect of midsection of right kidney. As per the daughter she follows urologist in [place]. Her kidney cyst was about 2 cm in 2021. MRI report copy was given to the patient and advised to follow-up urologist as an outpatient. 6. Metabolic encephalopathy with auditory hallucinations x 2 week probably related due to electrolyte abnormality-: Avoid [employer] sedating medications. 06/07 metabolic encephalopathy resolved 06/08: Hallucinations are discussed with the patient. Possible may be from metabolic encephalopathy from dehydration, electrolyte abnormality as mentioned above but might have other differential like dementia therefore advised to follow-up with a neurologist as an outpatient, referred by PCP 7. Chronic insomnia; on as needed nightly Ambien. Hold Ambien with possible adverse drug reaction contributing to hallucination (more content not included)...[facility]11-20-2024 Evaluation note* Diagnosis Onset Date Resolution Status Admit Date Acute hypokalemia acute Novembe r 2023 8:44pm Anemia acute June 06, 2024 8:44pm Auditory hallucination acute No vember 2023 8:44pm Dehydration acute May 8:44pm Depression acute June 06, 2024 8:44pm Hypocalcemia acute May 8:44pm Hypomagnesemia acute May 192023 8:44pm Renal mass, right acute Novembe r 2023 8:44pm Type 2 diabetes mellitus wit h hyperglycemia acute June 06 8:44pm Adverse drug reaction resolved May 8:44pm Diarrhea resolved June 06, 2024 8:44pm Metabolic encephalopathy resolved June 06, 2024 8:44pm Acute diverticulitis inactive Ryan mb2023 8:44pm Achalasia acute August 03, 2024 9:50am Esophageal dysmotility acute [facility] 2024 9:50am Achalasia acute September 27 5:33am [facility] Work Phone: 1(854) 625-640611-20-2024 Telephone encounter Note* Telephone Encounter - Guanakito Banda MD - 06/06/2024 7:30 PM EST Called transmission system operator that her calcium and ionized are critically low as well. Already sent to er for same [facility] Work Phone: 1(911) 297-712011-20-2024 Miscellaneous Notes* Telephone Encounter - Guanakito Banda MD - 06/06/2024 7:30 PM EST Called transmission system operator that her calcium and ionized are critically low as well. Already sent to er for same * Telephone Encounter - Diann Nascimento LPN - 06/06/2024 4:44 PM EST Patient and daughter Alina aware of lab levels and agreed to go to ER. Resulted labs and this encounter faxed to [facility] ER for reference. * Telephone Encounter - Rosaura Suárez APRN.CORINNA - 06/06/2024 4:32 PM EST Her calcium is low too (ionized is pending), I'm concerned that if we try and treat with oral magnesium her levels won't come up quick enough. Given the low mag and low calcium she should go to ER. * Telephone Encounter - Aiyana Dumont LPN - 06/06/2024 4:14 PM EST Patient s identity has been confirmed by name and birthdate: Yes Call received from Brian at [facility] lab at 4:13 PM to report a critical value for Magnesium with a result of 0.7. Dr Dunn was notified of the result at 4:16 PM. Aiyana Dumont LPN documented [facility]11-[facility]24 Telephone encounter Note * Telephone Encounter - Diann Nascimento LPN - 06/06/2024 4:44 PM EST Patient and daughter Alina aware of lab levels and agreed to go to ER. Resulted labs and this encounter faxed to [facility] ER for reference. [facility]11-20-[facility] Telephone encounter Note* Telephone Encounter - Rosaura Suárez APRN.CNP - 06/06/2024 4:32 PM EST Her calcium is low too (ionized is pending), I'm concerned that if we try and treat with oral magnesium her levels won't come up quick enough. Given the low mag and low calcium she should go to ER. [facility]11-20-[facility] Telephone encounter Note* Telephone Encounter - Aiyana Dumont LPN - 06/06/2024 4:14 PM EST Patient s identity has been confirmed by name and birthdate: Yes Call received from Brian at [facility] lab at 4:13 PM to report a critical value for Magnesium with a result of 0.7. Dr Dunn was notified of the result at 4:16 PM. Aiyana Dumont LPN [facility]11-20-2024 Miscellaneous Notes* Telephone Encounter - Dayan Ibarra LPN - 06/06/2024 3:24 PM EST Daughter notified and she saw orders on pt's MyChart and go all the labs and urine done. Dayan Ibarra LPN * Telephone Encounter - Mady Dunn MD - 06/06/2024 12:52 PM EST Labs ordered I added urine studies. Also follow up on high Vitamin D level on last labs * Telephone Encounter - Dayan Ibarra LPN - 06/05/2024 10:23 AM EST Daughter Raimundo called in to let you know pt has been having hallucinations for the past 2 weeks. Theythought it was from a med that was given to her by Dr. Real but is was not. Pt did stop and the hallucinations continued. They contacted Palliative Care and they are putting pt on ATB for 3 days. Palliative Care recommends pt go thru pcp and get blood work done. Daughter requesting blood work. Please advise Raimundo. Dayan Ibarra LPN [facility]11-[facility]24 Telephone encounter Note * Telephone Encounter - Dayan Ibarra LPN - 06/06/2024 3:24 PM EST Daughter notified and she saw orders on pt's MyChart and go all the labs and urine done. Dayan Ibarra LPN [facility]11-20-2024 Telephone encounter Note* Telephone Encounter - Mady Dunn MD - 06/06/2024 12:52 PM EST Labs ordered I added urine studies. Also follow up on high Vitamin D level on last labs [facility]11-19-2024 Telephone encounter Note* Telephone Encounter - Dayan Ibarra LPN - 06/05/2024 10:23 AM EST Daughter Raimundo called in to let you know pt has been having hallucinations for the past 2 weeks. Theythought it was from a med that was given to her by Dr. Real but is was not. Pt did stop and the hallucinations continued. They contacted Palliative Care and they are putting pt on ATB for 3 days. Palliative Care recommends pt go thru pcp and get blood work done. Daughter requesting blood work. Please advise Raimundo. Dayan Ibarra LPN [facility]11-18-2024 Telephone encounter Note* Telephone Encounter - Ana Ring - 06/04/2024 10:16 AM EST Prescription Refill Information The patient has been identified by name and date of : Yes Caregiver verified no other encounters exist for this prescription request: Yes Caregiver confirmed with patient/requestor that no other refills are due, in the near future, with this provider at this time: Yes The last office visit in department: 04-06-24 Does the patient have a future office visit with this provider/department: Yes Requested Prescriptions Pending Prescriptions Disp Refills pramipexole (MIRAPEX) 1.5 mg tablet 90 tablet 1 Sig: Take 1 tablet by mouth daily at bedtime. Ana Haywood June 04, 2024 10:16 AM [facility]11-18-2024 Miscellaneous Notes* Telephone Encounter - Aan Ring - 06/04/2024 10:16 AM EST Prescription Refill Information The patient has been identified by name and date of : Yes Caregiver verified no other encounters exist for this prescription request: Yes Caregiver confirmed with patient/requestor that no other refills are due, in the near future, with this provider at this time: Yes The last office visit in department: 04-06-24 Does the patient have a future office visit with this provider/department: Yes Requested Prescriptions Pending Prescriptions Disp Refills pramipexole (MIRAPEX) 1.5 mg tablet 90 tablet 1 Sig: Take 1 tablet by mouth daily at bedtime. Ana Haywood June 04, 2024 10:16 AM documented in [facility]11-[facility]-2024 NoteHNO ID: [id number] Author: ALISON HI RN Service: ? Author Type: Registered Nurse Type: Progress Notes Filed: 05/23/2024 14:26 Note Text: CDM Telephonic Outreach Provider Action/FYI CDM: CKD, COPD 3rd Attempt Contacted for: Routine Telephonic Outreach Contact made with patient: No, left message. Alison Hi RN May 22, 2024 4:15 [facility]11-05-2024 History of Present illness Narrative* Alison Hi RN - 05/22/2024 4:15 PM EST CDM Telephonic Outreach Provider Action/FYI CDM: CKD, COPD 3rd Attempt Contacted for: Routine Telephonic Outreach Contact made with patient: No, left message. Alison Hi RN May 22, 2024 4:15 PM documented in [facility]11-[facility]-2024 NotePatient Outreach ([facility]) DICK ARTIS ([id number]) 1935 F Date Time Provider Department 05/22/24 ALISON HI During your visit today, we recorded the following information about you: Alison Hi RN 05/23/2024 2:26 PM Signed CDM Telephonic Outreach Provider Action/FYI CDM: CKD, COPD 3rd Attempt Contacted for: Routine Telephonic Outreach Contact made with patient: No, left message. Alison Hi RN May 22, 2024 4:15 PM Allergies As of Date: 05/22/2024 Noted Allergy Reaction AMLODIPINE 02/16/2016 7 - Swelling Comments: Lower leg edema. ASPIRIN 05/19/2005 16 - Unknown LISINOPRIL 09/06/2011 3 - Cough REQUIP (ROPINIROLE) 09/26/2007 14 - Other: See Comments Comments: Very anxious Date Reviewed: 04/25/2024 Reviewed by: Eboni Cooley RN - Fully Assessed Reason for Visit: CDM [Other] Cmt: Chronic Disease Management Routine Call Prescriptions as of 06/08/2024 - pramipexole (MIRAPEX) 1.5 mg tablet Take 1 tablet by mouth daily at bedtime. - spironolactone (ALDACTONE) 25 mg tablet Take 1 tablet by mouth once daily. - zolpidem (AMBIEN) 10 mg Take 1 tablet by mouth at bedtime as needed for up to 180 days. - DULoxetine (CYMBALTA) 60 mg capsule Take 1 capsule by mouth once daily. - furosemide (LASIX) 40 mg tablet Take 1 tablet by mouth two times a day. - potassium chloride 20 mEq/15 mL solution Take 15 mL by mouth once daily. - pantoprazole DR (PROTONIX) 40 mg tablet Take 1 tablet by mouth once daily. - carvedilol (COREG) 25 mg tablet Take 1 tablet by mouth two times a day with meals. - iron polysaccharide complex (FERREX-150) 150 mg iron capsule Take 1 capsule by mouth once daily. - Compression Socks, Medium misc 2 Each once daily. Or size to fit. 10-20 mmHg. On in a.m., off in evening. - arformoterol (BROVANA) 15 mcg/2 mL nebulizer solution Inhale 2 mL as instructed every 12 hours. - OXYGEN, HOME THERAPY, 3 L/min by Nasal Cannula route as directed. - acetaminophen (TYLENOL) 500 mg tablet Take 1,000 mg by mouth every 6 hours as needed for pain (EVERY 6 HOURS NEEDED FOR PAIN). - albuterol HFA (VENTOLIN HFA) 90 mcg/actuation inhaler Inhale 2 Puffs as instructed every 4 hours as needed for wheezing/shortness of breath. 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] 05/24/2008 HTN (hypertension), benign [I10] 08/12/2009 Hypokalemia [E87.6] 08/12/2009 COPD (chronic obstructive pulmonary disease) [J*08/24/2010 S/P unilateral salpingo-oophorectomy [Z90.721] 02/18/2011 S/P WILFREDO (total abdominal hysterectomy) [Z90.710]02/18/2011 Hyperlipidemia [E78.5] 04/21/2011 Hypertension [I10] 04/21/2011 Vitamin D deficiency [E55.9] 03/06/2012 Nonspecific abnormal finding in stool contents *03/31/2012 02/08/2024 Acute gastritis without mention of hemorrhage [*03/31/2012 02/08/2024 Calculi, ureter [N20.1] 06/02/2012 HTN (hypertension) [I10] 12/11/2014 04/07/2015 Essential hypertension [I10] 04/07/2015 Mixed simple and mucopurulent chronic bronchiti*01/10/2016 Mixed hyperlipidemia [E78.2] 01/10/2016 Herpes zoster without complication [B02.9] 02/28/2016 02/08/2024 Bifascicular block [I45.2] 10/11/2016 Obesity, Class I, BMI 30-34.9 [E66.811] 07/30/2018 Stage 3b chronic kidney disease (HCC) [N18.32] 07/30/2018 TIA (transient ischemic attack) [G45.9] 05/26/2020 Carotid artery stenosis [I65.29] 01/23/2021 PAD (peripheral artery disease) (HCC) [I73.9] 11/11/2021 Chronic bilateral thoracic back pain [M54.6, G8*04/04/2023 Lumbar pain [M54.50] 04/04/2023 Osteopenia of lumbar spine [M85.88] 05/23/2023 Type 2 diabetes mellitus with hyperglycemia, wi*10/19/2023 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.*11/30/2023 Encounter Status:Closed by ALISON HI on 05/23/24[facility]10-24-2024 NoteHNO ID: [id number] Author: ALISON HI RN Service: ? Author Type: Registered Nurse Type: Progress Notes Filed: 05/10/2024 10:10 Note Text: CDM Telephonic Outreach Provider Action/FYI CDM: CKD, COPD 2nd Attempt, Lvm Instructed to contact PCP/Provider for symptom changes, concerns or needs. Contacted for: Routine Telephonic Outreach Contact made with patient: No, left message. Alison Hi RN May 10, 2024 10:04 [facility]10-24-2024 History of Present illness Narrative* Alison Hi RN - 05/10/2024 10:03 AM EDT CDM Telephonic Outreach Provider Action/FYI CDM: CKD, COPD 2nd Attempt, Lvm Instructed to contact PCP/Provider for symptom changes, concerns or needs. Contacted for: Routine Telephonic Outreach Contact made with patient: No, left message. Alison Hi RN May 10, 2024 10:04 AM * Alison Hi RN - 05/09/2024 3:43 PM EDT CDM Telephonic Outreach Provider Action/FYI CDM: CKD, COPD Lvm Instructed to contact PCP/Provider for symptom changes, concerns or needs. Contacted for: Routine Telephonic Outreach Contact made with patient: No, left message. Alison Hi RN May 09, 2024 3:44 PM documented in [facility]10-[facility]-2024 NoteHNO ID: [id number] Author: ALISON HI RN Service: ? Author Type: Registered Nurse Type: Progress Notes Filed: 05/10/2024 10:10 Note Text: CDM Telephonic Outreach Provider Action/FYI CDM: CKD, COPD Lvm Instructed to contact PCP/Provider for symptom changes, concerns or needs. Contacted for: Routine Telephonic Outreach Contact made with patient: No, left message. Alison Hi RN May 09, 2024 3:44 [facility]10-23-2024 NotePatient Outreach ([facility]) DICK ARTIS ([id number]) 1935 F Date Time Provider Department 05/09/24 ALISON HI AMBGUERRERO During your visit today, we recorded the following information about you: Alison Hi RN 05/10/2024 10:10 AM Signed CDM Telephonic Outreach Provider Action/FYI CDM: CKD, COPD Lvm Instructed to contact PCP/Provider for symptom changes, concerns or needs. Contacted for: Routine Telephonic Outreach Contact made with patient: No, left message. Alison Hi RN May 09, 2024 3:44 PM Alison Hi RN 05/10/2024 10:10 AM Signed CDM Telephonic Outreach Provider Action/FYI CDM: CKD, COPD 2nd Attempt, Lvm Instructed to contact PCP/Provider for symptom changes, concerns or needs. Contacted for: Routine Telephonic Outreach Contact made with patient: No, left message. Alison Hi RN May 10, 2024 10:04 AM Allergies As of Date: 05/09/2024 Noted Allergy Reaction AMLODIPINE 02/16/2016 7 - Swelling Comments: Lower leg edema. ASPIRIN 05/19/2005 16 - Unknown LISINOPRIL 09/06/2011 3 - Cough REQUIP (ROPINIROLE) 09/26/2007 14 - Other: See Comments Comments: Very anxious Date Reviewed: 04/25/2024 Reviewed by: Eboni Cooley RN - Fully Assessed Reason for Visit: CDM [Other] Cmt: Chronic Disease Management Routine Call Prescriptions as of 05/11/2024 - spironolactone (ALDACTONE) 25 mg tablet Take 1 tablet by mouth once daily. - zolpidem (AMBIEN) 10 mg Take 1 tablet by mouth at bedtime as needed for up to 180 days. - DULoxetine (CYMBALTA) 60 mg capsule Take 1 capsule by mouth once daily. - furosemide (LASIX) 40 mg tablet Take 1 tablet by mouth two times a day. - potassium chloride 20 mEq/15 mL solution Take 15 mL by mouth once daily. - pantoprazole DR (PROTONIX) 40 mg tablet Take 1 tablet by mouth once daily. - carvedilol (COREG) 25 mg tablet Take 1 tablet by mouth two times a day with meals. - pramipexole (MIRAPEX) 1.5 mg tablet Take 1 tablet by mouth daily at bedtime. - iron polysaccharide complex (FERREX-150) 150 mg iron capsule Take 1 capsule by mouth once daily. - Compression Socks, Medium misc 2 Each once daily. Or size to fit. 10-20 mmHg. On in a.m., off in evening. - arformoterol (BROVANA) 15 mcg/2 mL nebulizer solution Inhale 2 mL as instructed every 12 hours. - OXYGEN, HOME THERAPY, 3 L/min by Nasal Cannula route as directed. - acetaminophen (TYLENOL) 500 mg tablet Take 1,000 mg by mouth every 6 hours as needed for pain (EVERY 6 HOURS NEEDED FOR PAIN). - albuterol HFA (VENTOLIN HFA) 90 mcg/actuation inhaler Inhale 2 Puffs as instructed every 4 hours as needed for wheezing/shortness of breath. 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] 05/24/2008 HTN (hypertension), benign [I10] 08/12/2009 Hypokalemia [E87.6] 08/12/2009 COPD (chronic obstructive pulmonary disease) [J*08/24/2010 S/P unilateral salpingo-oophorectomy [Z90.721] 02/18/2011 S/P WILFREDO (total abdominal hysterectomy) [Z90.710]02/18/2011 Hyperlipidemia [E78.5] 04/21/2011 Hypertension [I10] 04/21/2011 Vitamin D deficiency [E55.9] 03/06/2012 Nonspecific abnormal finding in stool contents *03/31/2012 02/08/2024 Acute gastritis without mention of hemorrhage [*03/31/2012 02/08/2024 Calculi, ureter [N20.1] 06/02/2012 HTN (hypertension) [I10] 12/11/2014 04/07/2015 Essential hypertension [I10] 04/07/2015 Mixed simple and mucopurulent chronic bronchiti*01/10/2016 Mixed hyperlipidemia [E78.2] 01/10/2016 Herpes zoster without complication [B02.9] 02/28/2016 02/08/2024 Bifascicular block [I45.2] 10/11/2016 Obesity, Class I, BMI 30-34.9 [E66.811] 07/30/2018 Stage 3b chronic kidney disease (HCC) [N18.32] 07/30/2018 TIA (transient ischemic attack) [G45.9] 05/26/2020 Carotid artery stenosis [I65.29] 01/23/2021 PAD (peripheral artery disease) (HCC) [I73.9] 11/11/2021 Chronic bilateral thoracic back pain [M54.6, G8*04/04/2023 Lumbar pain [M54.50] 04/04/2023 Osteopenia of lumbar spine [M85.88] 05/23/2023 Type 2 diabetes mellitus with hyperglycemia, wi*10/19/2023 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.*11/30/2023 Encounter Status:Closed by KOLOTN ALISON M on 05/10/24[facility]10-09[facility]2024 NoteHNO ID: [id number] Author: ANA HERNANDEZ PA-C Service: ? Author Type: Physician Divinity Professor Type: Progress Notes Filed: 04/25/2024 16:33 Note Text: Patient: Dick Artis PCP: Mady Dunn MD CC: follow up HPI: Dick Artis 88 year old female former [id number] smoker, quitting in 2016 with PMH significant for HTN, TIA, PAD, CKD, moderately severe COPD, renal mass, and abnormal CT of the chest. Chest CT with dense atelectasis in the right lung without obvious endobronchial abnormality and small 4 to 5 mm right pulmonary nodule. Last office visit 12/20/2023. Current maintenance therapy Brovana, Budesonide and as needed Albuterol. Today, patient denies significant cough, sputum production, hemoptysis, or wheezing. No dyspnea at rest. Exertional dyspnea with walking up inclines. Patient states she walks to her mailbox and back without any issues. No fevers, chills, or night sweats. No unintended weight loss. No lower extremity edema. No GERD/heartburn. No recent hospitalizations or ED visits or upper respiratory infections. Currently wearing 2L supplemental oxygen, 4L at night. DME: [employer]. PAST MEDICAL HISTORY Diagnosis Date Basal cell carcinoma Carotid stenosis CEA left Chronic hypoxemic respiratory failure ([facility]) CKD (chronic kidney disease) stage 3, GFR 30-59 ml/min ([facility]) 07/30/2018 COPD (chronic obstructive pulmonary disease) ([facility]) Diastolic heart failure ([facility]) Diverticulosis of colon (without mention of hemorrhage) Diverticulosis Hypertension Rolly Smith MD NSTEMI (non-ST elevated myocardial infarction) ([facility]) Osteoporosis, unspecified Personal history of colonic polyps Colon polyps Restless legs syndrome (RLS) Spinal stenosis TIA (transient ischemic attack) 2008 Plavix Type 2 diabetes mellitus with hyperglycemia, without long-term current use of insulin ([facility]) 10/19/2023 Allergies: Amlodipine Swelling Comment:Lower leg edema. Aspirin Unknown Lisinopril Cough Requip [Ropinirole] Other: See Comments Comment:Very anxious spironolactone (ALDACTONE) 25 mg tablet Take 1 tablet by mouth once daily. zolpidem (AMBIEN) 10 mg Take 1 tablet by mouth at bedtime as needed for up to 180 days. DULoxetine (CYMBALTA) 60 mg capsule Take 1 capsule by mouth once daily. furosemide (LASIX) 40 mg tablet Take 1 tablet by mouth two times a day. potassium chloride 20 mEq/15 mL solution Take 15 mL by mouth once daily. pantoprazole DR (PROTONIX) 40 mg tablet Take 1 tablet by mouth once daily. carvedilol (COREG) 25 mg tablet Take 1 tablet by mouth two times a day with meals. pramipexole (MIRAPEX) 1.5 mg tablet Take 1 tablet by mouth daily at bedtime. iron polysaccharide complex (FERREX-150) 150 mg iron capsule Take 1 capsule by mouth once daily. Compression Socks, Medium misc 2 Each once daily. Or size to fit. 10-20 mmHg. On in a.m., off in evening. arformoterol (BROVANA) 15 mcg/2 mL nebulizer solution Inhale 2 mL as instructed every 12 hours. OXYGEN, HOME THERAPY, 3 L/min by Nasal Cannula route as directed. acetaminophen (TYLENOL) 500 mg tablet Take 1,000 mg by mouth every 6 hours as needed for pain (EVERY 6 HOURS NEEDED FOR PAIN). albuterol HFA (VENTOLIN HFA) 90 mcg/actuation inhaler Inhale 2 Puffs as instructed every 4 hours as needed for wheezing/shortness of breath. May take 2 puffs prior to exercise budesonide (PULMICORT) 0.5 mg/2 mL nebulizer solution USE 1 VIAL IN NEBULIZER EVERY 12 HOURS OVER 5-15 MINUTES atorvastatin (LIPITOR) 40 mg tablet take 1 tablet daily (Patient taking differently: Take 40 mg by mouth daily at bedtime.) clopidogrel (PLAVIX) 75 mg tablet take 1 tablet daily Social History Tobacco Use Smoking status: Former Current packs/day: 0.00 Average packs/day: 1 pack/day for 53.1 years (53.1 ttl pk-yrs) Types: Cigarettes Start date: 08/11/1963 Quit date: 10/04/2016 Years since quittin.5 Smokeless tobacco: Never Tobacco comments: 10-20 year period in 30-40s when quit. Vaping Use Vaping status: Never Used Substance Use Topics Alcohol use: Not Currently Comment: very seldom Drug use: Never Family History Problem Relation Age of Onset Diabetes Mother [...] HYSTERECT W/WO RMVL TUBE OVARY 05/18/1971 Hysterectomy, WILFREDO, LSO carcinoma insitu I reviewed the past medical history, family history, social history and surgical history with toby (more content not included)...[facility]10-09-2024 History of Present illness Narrative* Ana Hernandez PA-C - 04/25/2024 2:12 PM EDT Patient: Dick Artis PCP: Mady Dunn MD CC: follow up HPI: Dick Artis 88 year old female former 96-[id number]-ibyv smoker, quitting in 2017 with PMH significant for HTN, TIA, PAD, CKD, moderately severe COPD, renal mass, and abnormal CT of the chest. ChestCT with dense atelectasis in the right lung without obvious endobronchial abnormality and small 4 to 5 mm right pulmonary nodule. Last office visit 12/20/2023. Current maintenance therapy Brovana, Budesonide and as needed Albuterol. Today, patient denies significant cough, sputum production, hemoptysis, or wheezing. No dyspnea at rest. Exertional dyspnea with walking up inclines. Patient states she walks to her mailbox and back without any issues. No fevers, chills, or night sweats. No unintended weight loss. No lower extremity edema. No GERD/heartburn. No recent hospitalizations or ED visits or upper respiratory infections. Currently wearing 2L supplemental oxygen, 4L at night. DME: [employer]. PAST MEDICAL HISTORY Diagnosis Date Basal cell carcinoma Carotid stenosis CEA left Chronic hypoxemic respiratory failure (HCC) CKD (chronic kidney disease) stage 3, GFR 30-59 ml/min ([facility]) 07/30/2018 COPD (chronic obstructive pulmonary disease) ([facility]) Diastolic heart failure ([facility]) Diverticulosis of colon (without mention of hemorrhage) Diverticulosis Hypertension Rolly Smith MD NSTEMI (non-ST elevated myocardial infarction) ([facility]) Osteoporosis, unspecified Personal history of colonic polyps Colon polyps Restless legs syndrome (RLS) Spinal stenosis TIA (transient ischemic attack) 2009 Plavix Type 2 diabetes mellitus with hyperglycemia, without long-term current use of insulin ([facility]) 10/19/2023 Allergies: Amlodipine Swelling Comment:Lower leg edema. Aspirin Unknown Lisinopril Cough Requip [Ropinirole] Other: See Comments Comment:Very anxious spironolactone (ALDACTONE) 25 mg tablet Take 1 tablet by mouth once daily. zolpidem (AMBIEN) 10 mg Take 1 tablet by mouth at bedtime as needed for up to 180 days. DULoxetine (CYMBALTA) 60 mg capsule Take 1 capsule by mouth once daily. furosemide (LASIX) 40 mg tablet Take 1 tablet by mouth two times a day. potassium chloride 20 mEq/15 mL solution Take 15 mL by mouth once daily. pantoprazole DR (PROTONIX) 40 mg tablet Take 1 tablet by mouth once daily. carvedilol (COREG) 25 mg tablet Take 1 tablet by mouth two times a day with meals. pramipexole (MIRAPEX) 1.5 mg tablet Take 1 tablet by mouth daily at bedtime. iron polysaccharide complex (FERREX-150) 150 mg iron capsule Take 1 capsule by mouth once daily. Compression Socks, Medium misc 2 Each once daily. Or size to fit. 10-20 mmHg. On in a.m., off in evening. arformoterol (BROVANA) 15 mcg/2 mL nebulizer solution Inhale 2 mL as instructed every 12 hours. OXYGEN, HOME THERAPY, 3 L/min by Nasal Cannula route as directed. acetaminophen (TYLENOL) 500 mg tablet Take 1,000 mg by mouth every 6 hours as needed for pain (EVERY 6 HOURS NEEDED FOR PAIN). albuterol HFA (VENTOLIN HFA) 90 mcg/actuation inhaler Inhale 2 Puffs as instructed every 4 hours asneeded for wheezing/shortness of breath. May take 2 puffs prior to exercise budesonide (PULMICORT) 0.5 mg/2 mL nebulizer solution USE 1 VIAL IN NEBULIZER EVERY 12 HOURS OVER 5-15 MINUTES atorvastatin (LIPITOR) 40 mg tablet take 1 tablet daily (Patient taking differently: Take 40 mg by mouth daily at bedtime.) clopidogrel (PLAVIX) 75 mg tablet take 1 tablet daily Social History Tobacco Use Smoking status: Former Current packs/day: 0.00 Average packs/day: 1 pack/day for 53.1 years (53.1 ttl pk-yrs) Types: Cigarettes Start date: 08/11/1963 Quit date: 10/04/2016 Years since quittin.5 Smokeless tobacco: Never Tobacco comments: 10-20 year period in 30-40s when quit. Vaping Use Vaping status: Never Used Substance Use Topics Alcohol use: Not Currently Comment: very seldom Drug use: Never Family History Problem Relation Age of Onset Diabetes Mother [...] HYSTERECT W/WO RMVL TUBE OVARY 05/18/1971 Hysterectomy, WILFREDO, LSO carcinoma insitu I reviewed the past medical history, family history, social history and surgical history with changes noted above and updated in EMR. IMMUNIZATIONS Immunization History Administered Date(s) Administered COVID-19 original vaccine, full dose, monovalent (MODERNA) 08/16/2020 09/14/2020 influenza (HD-IIV3) vaccine, age 65+ yr, high dose, trivalent, PF (FLUZONE HIGH-DOSE) 06/16/2016 07/07/2018 05/04/2019 04/06/2024 influenza (HD-IIV4) vaccine, age 65+ yr, high dose, quadrivalent, PF (FLUZONE HIGH-DOSE) 04/04/2020 05/01/2021 07/29/2022 03/23/2023 influenza (IIV3) vaccine, age 6 mo - 64 yr, trivalent (AFLURIA, FLULAVAL, FLUVIRIN, FLUZONE) 05/01/2015 influenza (IIV3) vaccine, trivalent (AFLURIA, FLULAVAL, FLUVIRIN, FLUZONE) 05/24/2016 05/07/2017 influenza (IIV4) vaccine, age 6 mo - 64 yr, quadrivalent (AFLURIA, FLULAVAL, FLUZONE) 05/07/2017 influenza (IIV4) vaccine, age 6 mo - 64 yr, quadrivalent, PF (AFLURIA, FLUARIX, FLULAVAL, FLUZONE) 04/20/2013 04/16/2014 05/01/2015 05/24/2016 05/07/2017 influenza (RIV4) vaccine, recombinant, quadrivalent, PF (FLUBLOK) 05/07/2017 influenza vaccine, unspecified formulation 05/20/2005 05/20/2005 05/20/2008 05/01/2009 08/21/2010 04/21/2011 04/24/2012 07/04/2013 pneumococcal conjugate (PCV13) vaccine, 13 valent (PREVNAR 13) 11/14/2014 pneumococcal polysaccharide (PPV23) vaccine, 23 valent (PNEUMOVAX 23) 05/20/2008 10/22/2012 tetanus diphtheria pertussis (Tdap) vaccine, age 7+ yr (ADACEL, BOOSTRIX) 03/17/2013 ROS: All other systems reviewed as negative except for what is noted in HPI and review of systems. PHYSICAL EXAMINATION: BP 150/72 (BP Site: Right Arm) Pulse 75 Resp 20 SpO2 97% O2: 2L NC Gen: No acute distress. Cooperative with examination. HEENT: Normocephalic. Sclera, conjunctiva clear. Dentures. No thrush. Resp: No stridor, accessory respiratory muscle use, supra-sternal or intercostal retractions. No wheezes, crackles, or rhonchi. CV: Regular rythm. Heart tones normal. Radial pulses normal. Ext: Warm and well perfused. No clubbing, cyanosis, edema. Skin: No rash, ecchymoses. Neuro: Mental status normal. Affect normal. No tremor. DATA: Laboratory and Imaging: Oximetry, 04/25/2024 Oximetry with Ambulation Test for This Encounter O2 Device O2 Adapter NC O2 Flow SpO2% HR Activity Ft Walked (ft) Time (min) Avg Speed (MPH) R/A 88 84 Resting NC 2 94 82 Resting NC 2 90 93 Walking, usual pace 360 3 1.36 Last Spirometry SPIROMETRY BASELINE ONLY Collected: 12/20/2023 2:35 PM (Final result) Narrative: [facility] [address] [place] [address] Test Date: 2023-12-20 Pat Name: DICK ARTIS Department: Room: Gender: Female Toolroom Attendant: : 1935 Requested By: Order Number: [id number] Reading MD: Lucy Snider MD Interpretive Statements Medications and Allergies were reviewed for possible drug interactions per policy. No contraindications or sensitivities were noted. Meds taken: none before testing. Current ATS/ERS acceptability and repeatability standards for spirometry met. Start of test and EOFE criteria met. IMPRESSION: Spirometry indicates moderately severe obstruction. Electronically Signed On 12-20-2023 14:45:37 EDT by Lucy Snider MD ID: [id number] Name: DICK ARTIS Race: White Ht: 62.00 in Wt: 146.00 lbs Age: 88 Gender: Female : 1935 Dx: COPD_ Smoking Hx: Non-smoker Doctor: ALINA DELVALLE Test Date: 12/20/2023 Site: WO Tech: Heaven Sanchez PRE-BRONCH POST-BRONCH Pre LLN Pred ULN %Pred Post %Pred %Chg SPIROMETRY FVC (L) 1.56 1.53 2.25 3.00 69 FEV1 (L) 0.89 1.13 1.70 2.23 52 FEV1/FVC 0.57 0.64 0.78 0.89 73 PEF L/s (L/sec) 2.05 2.25 3.85 5.46 53 FEF50 (L/sec) 0.54 0.94 2.55 4.16 21 FIF50 (L/sec) 2.12 FEF50/FIF50 0.26 90-100 FIVC (L) 1.38 NOR36-25 (L/sec) 0.33 0.52 1.33 2.61 24 Time (sec) 10.37 FET PEF (sec) 0.14 JUAN LUIS (L) 0.04 Vol Extrap % (%) 3 Comments: Medications and Allergies were reviewed for possible drug interactions per policy. No contraindications or sensitivities were noted. Meds taken: none before testing. Current ATS/ERS acceptability and repeatability standards for spirometry met. Start of test and EOFE criteria met. CT Chest other findings: Last CT Chest - Impression Only CT CHEST WO IVCON Exam End: 08/04/2022 8:56 AM (Final result) Impression: IMPRESSION: Chronic right middle lobe volume loss. A 4-5 mm nodule at right lower lobe is not significantly changed. Consider follow-up CT thorax in 12 months. Smaller right kidney with partially imaged hyperdense nodule and partially imaged water density cyst (refer to prior 04/21/2022 CT kidneys).... Last XR Chest - Impression Only XR CHEST 2V FRONTAL/LAT Exam End: 09/02/2023 9:21 AM (Final result) Impression: IMPRESSION: Interstitial prominence. Minimal atelectasis or fibrosis at both lung bases 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: JANE Cervantes. ASSESSMENT/PLAN: 1. Stage 3 severe COPD by GOLD classification (HCC) - ICD9: 496, ICD10: J44.9 (primary diagnosis) Symptomatically doing well. Continue with maintenance therapy with Brovana and Budesonide twice daily. Albuterol HFA inhaler, 2 inhalations 10-15 minutes prior to activities associated with shortness ofbreath, and as needed for rescue relief of shortness of breath or wheezing, up to 4 times daily. 2. Chronic hypoxemic respiratory failure (HCC) - ICD9: 518.83, 799.02, ICD10: J96.11 Based on oximetry today, patient continues to require 2L supplemental oxygen. Patient is compliant and benefits from supplemental oxygen. 3. Former smoker - ICD9: V15.82, ICD10: Z87.891 Former 41-[id number]-iltd smoker having quit in 2017. 4. Post-COVID chronic dyspnea - ICD9: 786.09, 139.8, ICD10: R06.09, U09.9 5. Lung nodule - ICD9: 793.11, ICD10: R91.1 Stable nodule likely benign. Portions of this documentation were copied and pasted from previous office visit notes in order to provide a cohesive continuity of the history. The note has been reviewed and edited and updated as necessary. Ana Hernandez PA-C [facility] NoteHNO ID: [id number] Author: HEAVEN SANCHEZ RPFT Service: ? Author Type: Respiratory Therapist Type: Procedures Filed: 04/25/2024 13:51 Note Text: RESPIRATORY THERAPY OXIMETRY WITH AMBULATION Oximetry with Ambulation Test for This Encounter O2 Device O2 Adapter NC O2 Flow SpO2% HR Activity Ft Walked (ft) Time (min) Avg Speed (MPH) R/A 88 84 Resting NC 2 94 82 Resting NC 2 90 93 Walking, usual pace 360 3 1.36 General Information Pulse Oximetry Site Total Time Spent Walking Assistance/O2 Supply Carrier L [place] 30 Wheeled Walker NAME: CHANTAL Hollins PATIENT NAME: Dick Artis DATE: April 25, 2024 TIME: 1:51 PM Comment: [facility]* Heaven SanchezCHANTAL - 04/25/2024 1:50 PM EDT Associated Order(s): OXIMETRY WITH AMBULATION RESPIRATORY THERAPY OXIMETRY WITH AMBULATION Oximetry with Ambulation Test for This Encounter O2 Device O2 Adapter NC O2 Flow SpO2% HR Activity Ft Walked (ft) Time (min) Avg Speed (MPH) R/A 88 84 Resting NC 2 94 82 Resting NC 2 90 93 Walking, usual pace 360 3 1.36 General Information Pulse Oximetry Site Total Time Spent Walking Assistance/O2 Supply Carrier L [place] 30 Wheeled Walker NAME: CHANTAL Hollins PATIENT NAME: Dick Artis DATE: April 25, 2024 TIME: 1:51 PM Comment: patient ambulated with own pulse dose oxygen [facility]10-09-[facility] Procedure note* Heaven Sanchez RPFT - 04/25/2024 1:50 PM EDTAssociated Order(s): OXIMETRY WITH AMBULATION RESPIRATORY THERAPY OXIMETRY WITH AMBULATION Oximetry with Ambulation Test for This Encounter O2 Device O2 Adapter NC O2 Flow SpO2% HR Activity Ft Walked (ft) Time (min) Avg Speed (MPH) R/A 88 84 Resting NC 2 94 82 Resting NC 2 90 93 Walking, usual pace 360 3 1.36 General Information Pulse Oximetry Site Total Time Spent Walking Assistance/O2 Supply Carrier L [place] 30 Wheeled Walker NAME: Heaven SanchezCHANTAL PATIENT NAME: Dick Artis DATE: April 25, 2024 TIME: 1:51 PM Comment: patient ambulated with own pulse dose oxygen [facility]24 NoteHNO ID: [id number] Author: HEAVEN SANCHEZ RPFT Service: ? Author Type: Respiratory Therapist Type: Progress Notes Filed: 04/25/2024 13:51 Note Text: PULM FUNCTION: Provider: Ana Hernandez PA-C Assisting Tech: Heaven Sanchez RPTIERNEY [facility] of Present illness Narrative* Heaven Sanchez RPFT - 04/25/2024 1:36 PM EDT PULM FUNCTION: Provider: Ana Hernandez PA-C Assisting Tech: Heaven Sanchez RPFT Oximetry - Ambulation: 1 documented in [facility]10-[facility]24 Miscellaneous Notes* Telephone Encounter - Johanny Johns - 04/23/2024 12:20 PM EDT Prescription Refill Information The patient has been identified by name and date of : Yes Caregiver verified no other encounters exist for this prescription request: Yes Caregiver confirmed with patient/requestor that no other refills are due, in the near future, with this provider at this time: Yes The last office visit in the department: 04/19/2024 Does the patient have a future office visit with this provider/department: Yes Requested Prescriptions Pending Prescriptions Disp Refills spironolactone (ALDACTONE) 25 mg tablet 30 tablet 1 Sig: Take 1 tablet by mouth once daily. Johanny Johns April 23, 2024 12:20 PM [facility] Telephone encounter Note * Telephone Encounter - Johanny Johns - 04/23/2024 12:20 PM EDT Prescription Refill Information The patient has been identified by name and date of : Yes Caregiver verified no other encounters exist for this prescription request: Yes Caregiver confirmed with patient/requestor that no other refills are due, in the near future, with this provider at this time: Yes The last office visit in the department: 04/19/2024 Does the patient have a future office visit with this provider/department: Yes Requested Prescriptions Pending Prescriptions Disp Refills spironolactone (ALDACTONE) 25 mg tablet 30 tablet 1 Sig: Take 1 tablet by mouth once daily. Johanny Johns April 23, 2024 12:20 PM [facility] Medical Records Department [address] [place] [address] History Physical Exam 04/19/24 0742 MR#: [id number] Acct: [id number] Name: DICK ARTIS Rep #: [id number] : 1935 88 From: Teodoro Friend DO PCP: WILMER Maynard Status:[facility] Location: [place] [address] History and Physical Date of Admission: 04/19/24 Chief Complaint: hospital f/u Details: DICK ARTIS, is a 88 F who presents to the office today for f/u. She was hospitalized in August of 2023 for NSTEMI and COPD exacerbation. She was found to have down trending hemoglobin and underwent EGD. EGD 3.1.24; - LA Grade D erosive esophagitis with bleeding. Treated with a heater probe. - Non-bleeding gastric ulcers with no stigmata of bleeding. Biopsied. - Acute duodenitis. Biopsied OV 9.5.24 ; Patient has been doing well from GI standpoint up until recently when she had an episode of choking. She was eating a chicken wing when she stated to choke on it. She presented to the ED for this and was ultimately sent home after normal chest x-ray. After being sent home she had numerous episodes of vomiting which subsided after a few days. Since then she has had no further problems besides some break through heartburn. She continues to take Pantoprazole daily. ROS Const Constitutional: No fatigue, fever(s) or weight change ENT ENT: No difficulty swallowing Gastro GI: No abdominal pain, belching, bloating, change in bowel habits, change in stool character, coffee ground emesis, constipation, cramping, diarrhea, heartburn, difficulty swallowing, feeling full early, excessive flatus, incontinent of stools, Vomiting blood/hematemesis, Blood in stool, loose stools, Black,tarry stools, nausea/dyspepsia, pain with swallowing, vomiting or other Musc Musculoskeletal: Positive for numbness, tingling, Arthritis and restless legs; No joint pain Skin Skin: No yellowing of the eye or itchy eyes Neuro Neurology: Positive for numbness, tingling and restless legs Psych Psychiatric: No anxiety and No depression Endo Endocrine: No fatigue or weight change Aller/Imm Allergy/Immunologic: No itchy eyes Amilcar/Lymp Hematologic/Lymphatic: Positive for easy bruising; No easy bleeding Exam Const General: cooperative and comfortable Nutritional Appearance: average body habitus and well nourished HENMT Head: normal to inspection Ears: hearing grossly normal bilaterally Nose: external nose normal Face and sinus: normal facial exam Eyes General: appearance normal, both eyes and all related structures Neck Neck: normal visual inspection Chest Chest palpation inspection: normal inspection of the chest Resp Effort Inspection: normal respiratory effort Cardio Palpation: normal PMI GI Inspection: normal to inspection Skin General: no rashes or lesions noted Neuro General: patient alert Extrem General: normal to inspection Psych Affect: normal affect Assessment and Plan Assessment and Plan (1) Dysphagia: Status: Acute Plan: Robert is here today for f/u. She was established with [facility] while in the hospital in August of 2023. She had down trending hemoglobin and underwent EGD. Since then she has had an episode of diverticulitis but no other GI problems until recent when she choked on a chicken wing. Differential for dysphagia includes esophageal stricture, GERD, EOE or PUD. -Recommend she undergo EGD to rule out causes of dysphagia and to ensure healing of gastric ulcer. She is agreeable to this -She will continue taking PPI daily and take famotidine for breakthrough heartburn I have examined the patient and the H P has been reviewed. There are no clinical changes since date of exam. 04/19/24 0743 Cosigner Signature (if applicable): CC: WILMER Suárez; [facility]od[facility] Friend[facility] NoteHNO ID: [id number] Author: ALISON HI RN Service: ? Author Type: Registered Nurse Type: Progress Notes Filed: 04/08/2024 19:44 Note Text: CDM Telephonic Outreach Provider Action/FYI Hx:CDM: CKD, COPD Contacted for: Routine Telephonic Outreach Contact made with patient: No, left message. Alison Hi RN April 08, 2024 7:43 [facility]09-22-2024 History of Present illness Narrative* Alison Hi RN - 04/08/2024 7:40 PM EDT CDM Telephonic Outreach Provider Action/FYI Hx:CDM: CKD, COPD Contacted for: Routine Telephonic Outreach Contact made with patient: No, left message. Alison Hi RN April 08, 2024 7:43 PM [facility]24 NotePatient Outreach ([facility]) DICK ARTIS ([id number]) 1935 F Date Time Provider Department 04/08/24 ALISON HI [facility] During your visit today, we recorded the following information about you: Alison Hi RN 04/08/2024 7:44 PM Signed [facility] Telephonic Outreach Provider Action/FYI Hx:CDM: CKD, COPD Contacted for: Routine Telephonic Outreach Contact made with patient: No, left message. Alison Hi RN April 08, 2024 7:43 PM Allergies As of Date: 04/08/2024 Noted Allergy Reaction AMLODIPINE 02/16/2016 7 - Swelling Comments: Lower leg edema. ASPIRIN 05/19/2005 16 - Unknown LISINOPRIL 09/06/2011 3 - Cough REQUIP (ROPINIROLE) 09/26/2007 14 - Other: See Comments Comments: Very anxious Date Reviewed: 04/06/2024 Reviewed by: Rosaura Suárez APRN.YARD CRANE OPERATOR - Fully Assessed Reason for Visit: CDM [Other] Cmt: Chronic Disease Management Routine Call Prescriptions as of 04/08/2024 - zolpidem (AMBIEN) 10 mg Take 1 tablet by mouth at bedtime as needed for up to 180 days. - DULoxetine (CYMBALTA) 60 mg capsule Take 1 capsule by mouth once daily. - furosemide (LASIX) 40 mg tablet Take 1 tablet by mouth two times a day. - potassium chloride 20 mEq/15 mL solution Take 15 mL by mouth once daily. - pantoprazole DR (PROTONIX) 40 mg tablet Take 1 tablet by mouth once daily. - carvedilol (COREG) 25 mg tablet Take 1 tablet by mouth two times a day with meals. - pramipexole (MIRAPEX) 1.5 mg tablet Take 1 tablet by mouth daily at bedtime. - spironolactone (ALDACTONE) 25 mg tablet Take 1 tablet by mouth once daily. - iron polysaccharide complex (FERREX-150) 150 mg iron capsule Take 1 capsule by mouth once daily. - Compression Socks, Medium misc 2 Each once daily. Or size to fit. 10-20 mmHg. On in a.m., off in evening. - arformoterol (BROVANA) 15 mcg/2 mL nebulizer solution Inhale 2 mL as instructed every 12 hours. - OXYGEN, HOME THERAPY, 3 L/min by Nasal Cannula route as directed. - acetaminophen (TYLENOL) 500 mg tablet Take 1,000 mg by mouth every 6 hours as needed for pain (EVERY 6 HOURS NEEDED FOR PAIN). - albuterol HFA (VENTOLIN HFA) 90 mcg/actuation inhaler Inhale 2 Puffs as instructed every 4 hours as needed for wheezing/shortness of breath. 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] 05/24/2008 HTN (hypertension), benign [I10] 08/12/2009 Hypokalemia [E87.6] 08/12/2009 COPD (chronic obstructive pulmonary disease) [J*08/24/2010 S/P unilateral salpingo-oophorectomy [Z90.721] 02/18/2011 S/P WILFREDO (total abdominal hysterectomy) [Z90.710]02/18/2011 Hyperlipidemia [E78.5] 04/21/2011 Hypertension [I10] 04/21/2011 Vitamin D deficiency [E55.9] 03/06/2012 Nonspecific abnormal finding in stool contents *03/31/2012 02/08/2024 Acute gastritis without mention of hemorrhage [*03/31/2012 02/08/2024 Calculi, ureter [N20.1] 06/02/2012 HTN (hypertension) [I10] 12/11/2014 04/07/2015 Essential hypertension [I10] 04/07/2015 Mixed simple and mucopurulent chronic bronchiti*01/10/2016 Mixed hyperlipidemia [E78.2] 01/10/2016 Herpes zoster without complication [B02.9] 02/28/2016 02/08/2024 Bifascicular block [I45.2] 10/11/2016 Obesity, Class I, BMI 30-34.9 [E66.9] 07/30/2018 Stage 3b chronic kidney disease (HCC) [N18.32] 07/30/2018 TIA (transient ischemic attack) [G45.9] 05/26/2020 Carotid artery stenosis [I65.29] 01/23/2021 PAD (peripheral artery disease) (HCC) [I73.9] 11/11/2021 Chronic bilateral thoracic back pain [M54.6, G8*04/04/2023 Lumbar pain [M54.50] 04/04/2023 Osteopenia of lumbar spine [M85.88] 05/23/2023 Type 2 diabetes mellitus with hyperglycemia, wi*10/19/2023 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.*11/30/2023 Encounter Status:Closed by KOLTON ALISON Perlita on 04/08/24[facility]2024 Instructions* Patient Instructions* Rosaura Suárez APRN.CORINNA - 04/06/2024 9:47 AM EDT Ok to stop the multivitamin. Increase the Ambien to 10 mg nightly (new script sent, okay to use up old by taking 2 pills of the 5 mg dose at bedtime). Increase the Cymbalta (duloxetine) to 60 mg daily. documented in this encounterPike [facility] Hospital2024 NoteHNO ID: [id number] Author: ROSAURA SUÁREZ APRN.CORINNA Service: ? Author Type: Nurse Practitioner Type: Progress Notes Filed: 04/06/2024 10:06 Note Text: SUBJECTIVE Dick Artis is a 88 year old female here today for a check up on her medical problems. Chief Complaint Patient presents with: Recheck HPI Dick Artis is a 88 year old female. She is an established patient of Mady Dunn MD. Here today for a routine follow up. Last visit she had some complaints of left flank pain. Was in Er on 03/08 for shortness of breath and abdominal pain. Diagnosed with mild diverticulitis. Colonoscopy and EGD recommended. Scheduled for 04/[address] Real. Weight stable, appetite not great but not bad. Sleep is not great. Trouble falling asleep, trouble staying asleep, gets up to the bathroom. No recent falls. Back pain is manageable. Her medications were reviewed today and her list is now up to date. Medications Current Outpatient Medications Medication Sig furosemide (LASIX) 40 mg tablet Take 1 tablet by mouth two times a day. potassium chloride 20 mEq/15 mL solution Take 15 mL by mouth once daily. pantoprazole DR (PROTONIX) 40 mg tablet Take 1 tablet by mouth once daily. carvedilol (COREG) 25 mg tablet Take 1 tablet by mouth two times a day with meals. pramipexole (MIRAPEX) 1.5 mg tablet Take 1 tablet by mouth daily at bedtime. spironolactone (ALDACTONE) 25 mg tablet Take 1 tablet by mouth once daily. iron polysaccharide complex (FERREX-150) 150 mg iron capsule Take 1 capsule by mouth once daily. arformoterol (BROVANA) 15 mcg/2 mL nebulizer solution Inhale 2 mL as instructed every 12 hours. albuterol HFA (VENTOLIN HFA) 90 mcg/actuation inhaler Inhale 2 Puffs as instructed every 4 hours as needed for wheezing/shortness of breath. May take 2 puffs prior to exercise budesonide (PULMICORT) 0.5 mg/2 mL nebulizer solution USE 1 VIAL IN NEBULIZER EVERY 12 HOURS OVER 5-15 MINUTES atorvastatin (LIPITOR) 40 mg tablet take 1 tablet daily (Patient taking differently: Take 40 mg by mouth daily at bedtime.) clopidogrel (PLAVIX) 75 mg tablet take 1 tablet daily zolpidem (AMBIEN) 10 mg Take 1 tablet by mouth at bedtime as needed for up to 180 days. DULoxetine (CYMBALTA) 60 mg capsule Take 1 capsule by mouth once daily. Compression Socks, Medium misc 2 Each once daily. Or size to fit. 10-20 mmHg. On in a.m., off in evening. OXYGEN, HOME THERAPY, 3 L/min by Nasal Cannula route as directed. acetaminophen (TYLENOL) 500 mg tablet Take 1,000 mg by mouth every 6 hours as needed for pain (EVERY 6 HOURS NEEDED FOR PAIN). No current facility-administered medications for this visit. ALLERGIES Allergen Reactions Amlodipine Swelling Lower leg edema. Aspirin Unknown Lisinopril Cough Requip [Ropinirole] Other: See Comments Very anxious ACTIVE PROBLEM LIST Moderate Recurrent Major Depression ([facility]) - 11/30/2023 Type 2 Diabetes Mellitus With Hyperglycemia, Without Long-Term Current Use of Insulin ([facility]) - 10/19/2023 Osteopenia of Lumbar Spine - 05/23/2023 Chronic Bilateral Thoracic Back Pain - 04/04/2023 Lumbar Pain - 04/04/2023 Pad (Peripheral Artery Disease) ([facility]) - 11/11/2021 Carotid Artery Stenosis - 01/23/2021 Tia (Transient Ischemic Attack) - 05/26/2020 Comment: history of TIA, remote Obesity, Class I, Bmi 30-34.9 - 07/30/2018 Stage 3b Chronic Kidney Disease ([facility]) - 07/30/2018 Bifascicular Block - 10/11/2016 Mixed Simple and Mucopurulent Chronic Bronchitis ([facility]) - 01/10/2016 Mixed Hyperlipidemia - 01/10/2016 Essential Hypertension - 04/07/2015 Calculi, 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 Basilio @ [facility]- Cystopscopy, left retrograde pyelogram, left ureteroscopy, basked extraction of ureteral tissue Vitamin D Deficiency - 03/06/2012 Hyperlipidemia - 04/21/2011 Hypertension - 04/21/2011 Comment: 05/23/2023: Home BP Cuff Validated. Home BP: 143/56 p70 Office BP: 134/60 p69 S/P Unilateral Salpingo-Oophorectomy - 02/18/2011 S/P Wilfredo (Total Abdominal Hysterectomy) - 02/18/2011 Copd (Chronic Obstructive Pulmonary Disease) ([facility]) - 08/24/2010 Htn (Hypertension), Benign - 08/12/2009 Comment: 11/30/2023: Home BP Cuff Validated. Home BP: 136/61 P 85 Office BP: 130/50 P 85 Hypokalemia - 08/12/2009 Brachial Neuritis Or Radiculitis NOS - 05/24/2008 Diverticulosis of Colon (Without Mention of Hemorrhage) Comment: Diverticulosis Personal History of Colonic Polyps Comment: Colon polyps Restless Legs Syndrome (Rls) Peripheral Enthesopathies and Allied Syndromes - 05/20/2005 Osteoporosis, Unspecified - 05/20/2005 restless leg syndrome - 05/20/2005 Social History Tobacco Use Smoking status: Former Current packs/day: 0.00 Average packs/day: 1 pack/day for 53.1 years (53.1 ttl pk-yrs) Types: Cigarettes Start date: 08/11/1963 Quit date: 10/04/2016 Years since quittin.5 Smokeless tobacco: Never Tobacco comments: 10-20 year ariela (more content not included)...[facility] 04-06-2024 History of Present illness Narrative* Rosaura Suárez APRN.YARD CRANE OPERATOR - 04/06/2024 9:35 AM EDT SUBJECTIVE Dick Artis is a 88 year old female here today for a check up on her medical problems. Chief Complaint Patient presents with: Recheck HPI Dick Artis is a 88 year old female. She is an established patient of Mady Dunn MD. Here today for a routine follow up. Last visit she had some complaints of left flank pain. Was in Er on 03/08 for shortness of breath and abdominal pain. Diagnosed with mild diverticulitis. Colonoscopy and EGD recommended. Scheduled for 04/[address] Real. Weight stable, appetite not great but not bad. Sleep is not great. Trouble falling asleep, trouble staying asleep, gets up to the bathroom. No recent falls. Back pain is manageable. Her medications were reviewed today and her list is now up to date. Medications Current Outpatient Medications Medication Sig furosemide (LASIX) 40 mg tablet Take 1 tablet by mouth two times a day. potassium chloride 20 mEq/15 mL solution Take 15 mL by mouth once daily. pantoprazole DR (PROTONIX) 40 mg tablet Take 1 tablet by mouth once daily. carvedilol (COREG) 25 mg tablet Take 1 tablet by mouth two times a day with meals. pramipexole (MIRAPEX) 1.5 mg tablet Take 1 tablet by mouth daily at bedtime. spironolactone (ALDACTONE) 25 mg tablet Take 1 tablet by mouth once daily. iron polysaccharide complex (FERREX-150) 150 mg iron capsule Take 1 capsule by mouth once daily. arformoterol (BROVANA) 15 mcg/2 mL nebulizer solution Inhale 2 mL as instructed every 12 hours. albuterol HFA (VENTOLIN HFA) 90 mcg/actuation inhaler Inhale 2 Puffs as instructed every 4 hours asneeded for wheezing/shortness of breath. May take 2 puffs prior to exercise budesonide (PULMICORT) 0.5 mg/2 mL nebulizer solution USE 1 VIAL IN NEBULIZER EVERY 12 HOURS OVER 5-15 MINUTES atorvastatin (LIPITOR) 40 mg tablet take 1 tablet daily (Patient taking differently: Take 40 mg by mouth daily at bedtime.) clopidogrel (PLAVIX) 75 mg tablet take 1 tablet daily zolpidem (AMBIEN) 10 mg Take 1 tablet by mouth at bedtime as needed for up to 180 days. DULoxetine (CYMBALTA) 60 mg capsule Take 1 capsule by mouth once daily. Compression Socks, Medium misc 2 Each once daily. Or size to fit. 10-20 mmHg. On in a.m., off in evening. OXYGEN, HOME THERAPY, 3 L/min by Nasal Cannula route as directed. acetaminophen (TYLENOL) 500 mg tablet Take 1,000 mg by mouth every 6 hours as needed for pain (EVERY 6 HOURS NEEDED FOR PAIN). No current facility-administered medications for this visit. ALLERGIES Allergen Reactions Amlodipine Swelling Lower leg edema. Aspirin Unknown Lisinopril Cough Requip [Ropinirole] Other: See Comments Very anxious ACTIVE PROBLEM LIST Moderate Recurrent Major Depression ([facility]) - 11/30/2023 Type 2 Diabetes Mellitus With Hyperglycemia, Without Long-Term Current Use of Insulin ([facility]) - 10/19/2023 Osteopenia of Lumbar Spine - 05/23/2023 Chronic Bilateral Thoracic Back Pain - 04/04/2023 Lumbar Pain - 04/04/2023 Pad (Peripheral Artery Disease) ([facility]) - 11/11/2021 Carotid Artery Stenosis - 01/23/2021 Tia (Transient Ischemic Attack) - 05/26/2020 Comment: history of TIA, remote Obesity, Class I, Bmi 30-34.9 - 07/30/2018 Stage 3b Chronic Kidney Disease ([facility]) - 07/30/2018 Bifascicular Block - 10/11/2016 Mixed Simple and Mucopurulent Chronic Bronchitis ([facility]) - 01/10/2016 Mixed Hyperlipidemia - 01/10/2016 Essential Hypertension - 04/07/2015 Calculi, 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 Basilio @ [facility]- Cystopscopy, left retrograde pyelogram, left ureteroscopy, basked extraction of ureteral tissue Vitamin D Deficiency - 03/06/2012 Hyperlipidemia - 04/21/2011 Hypertension - 04/21/2011 Comment: 05/23/2023: Home BP Cuff Validated. Home BP: 143/56 p70 Office BP: 134/60 p69 S/P Unilateral Salpingo-Oophorectomy - 02/18/2011 S/P Wilfredo (Total Abdominal Hysterectomy) - 02/18/2011 Copd (Chronic Obstructive Pulmonary Disease) ([facility]) - 08/24/2010 Htn (Hypertension), Benign - 08/12/2009 Comment: 11/30/2023: Home BP Cuff Validated. Home BP: 136/61 P 85 Office BP: 130/50 P 85 Hypokalemia - 08/12/2009 Brachial Neuritis Or Radiculitis NOS - 05/24/2008 Diverticulosis of Colon (Without Mention of Hemorrhage) Comment: Diverticulosis Personal History of Colonic Polyps Comment: Colon polyps Restless Legs Syndrome (Rls) Peripheral Enthesopathies and Allied Syndromes - 05/20/2005 Osteoporosis, Unspecified - 05/20/2005 restless leg syndrome - 05/20/2005 Social History Tobacco Use Smoking status: Former Current packs/day: 0.00 Average packs/day: 1 pack/day for 53.1 years (53.1 ttl pk-yrs) Types: Cigarettes Start date: 08/11/1963 Quit date: 10/04/2016 Years since quittin.5 Smokeless tobacco: Never Tobacco comments: 10-20 year period in 30-40s when quit. Vaping Use Vaping status: Never Used Substance Use Topics Alcohol use: Not Currently Comment: very seldom Drug use: Never Review of Systems Constitutional: Negative. Respiratory: Negative. Cardiovascular: Negative. OBJECTIVE BP 142/60 Pulse 78 Wt 141 lb 5 oz (64.1kg) SpO2 93% Physical Exam Vitals and nursing note reviewed. Constitutional: General: She is awake. She is not in acute distress. Appearance: Normal appearance. She is well-developed and well-groomed. She is not ill-appearing, toxic-appearing or diaphoretic. Interventions: Nasal cannula in place. HENT: Head: Normocephalic. Right Ear: External ear [...] memory normal. Judgment: Judgment normal. ASSESSMENT/PLAN: 1. Other insomnia - ICD9: 780.52, ICD10: G47.09 (primary diagnosis) Increase Ambien dose. - ZOLPIDEM 10 MG TABLET 2. HTN (hypertension), benign - ICD9: 401.1, ICD10: I10 - Controlled - Continue current medications - Recommend home blood pressure monitoring, to bring results to next visit - Encouraged sodium restriction, DASH or Mediterranean diet - Recommend regular aerobic exercise 3. Chronic obstructive pulmonary disease, unspecified COPD type (HCC) - ICD9: 496, ICD10: J44.9 Stable, up coming follow up with pulmonary 4. Chronic hypoxic respiratory failure, on home oxygen therapy (HCC) - ICD9: 518.83, 799.02, V46.2,ICD10: J96.11, Z99.81 Stable. 5. Type 2 diabetes mellitus with chronic kidney disease, without long-term current use of insulin, unspecified CKD stage (HCC) - ICD9: 250.40, 585.9, ICD10: E11.22 - Controlled - Counseled on healthy diet and regular exercise - Discussed need for and benefit of weight loss. BMI 25.85 kg/(m^2) CKD stable. 6. Chronic bilateral low back pain, unspecified whether sciatica present - ICD9: 724.2, 338.29, ICD10: M54.50, G89.29 Increase Cymbalta to simplify medication regimen - DULOXETINE 60 MG CAPSULE,DELAYED RELEASE 7. Encounter for immunization - ICD9: V03.89, ICD10: Z23 - INFLUENZA VACCINE, PRSV FREE, AGE 65+ YR, HIGH DOSE, TRIVALENT (FLUZONE HIGH-DOSE) Portions of this note have been entered by ancillary staff. I have reviewed and when necessary edited, so that they are an adequate record of my encounter with this patient Please note that parts of this document were created using voice recognition software and therefore may contain grammatical errors. Patient verbalizes understanding of instructions from today's visit and in agreement with treatmentplan. Questions answered. Agrees to call the office [...] as well as compliance with taking medications. Age- appropriate health preventative measures were discussed. Return in about 3 months (around 07/06/2024). ROLAND Maynard documented in this encounterP[facility]09-10-2024 NoteHNO ID: [id number] Author: ALISON HI RN Service: ? Author Type: Registered Nurse Type: Progress Notes Filed: 03/27/2024 10:44 Note Text: CDM Telephonic Outreach Provider Action/FYI CDM: CKD, COPD Hx of diverticulitis of colon 03/08/24 [facility] ED Dx: Sob, Abd Pain Plan by [facility] Beatriz Price : review the previous CT as well as showed patient and her family. I would agree that diverticulitis was mild. I do think that her left-sided back pain is more than her chronic pain and not due to an abdominal issue as there is no current abdominal pain. Discussed with patient that if she would still like a colonoscopy we could talk more about that at follow-up in 1 month. 03/27/24 2nd Call Instructed to contact PCP/Provider for symptom changes, concerns or needs. Contacted for: Routine Telephonic Outreach Contact made with patient: No, left message. Alison Hi RN March 27, 2024 10:42 [facility]09-10-2024 History of Present illness Narrative* Alison Hi RN - 03/27/2024 10:42 AM EDT CDM Telephonic Outreach Provider Action/FYI CDM: CKD, COPD Hx of diverticulitis of colon 03/08/24 [facility] ED Dx: Sob, Abd Pain Plan by [facility] Beatriz Price : review the previous CT as well as showed patient and her family. I would agree that diverticulitis was mild. I do think that her left-sided back pain is more than her chronic pain and not due to an abdominal issue as there is no current abdominal pain. Discussed with patient that if she would still like a colonoscopy we could talk more about that at follow-up in 1 month. 03/27/24 2nd Call Instructed to contact PCP/Provider for symptom changes, concerns or needs. Contacted for: Routine Telephonic Outreach Contact made with patient: No, left message. Alison Hi RN March 27, 2024 10:42 AM * Alison Hi RN - 03/26/2024 3:12 PM EDT CDM Telephonic Outreach Provider Action/FYI CDM: CKD, COPD Hx of diverticulitis of colon 03/08/24 [facility] ED Dx: Sob, Abd Pain Plan by [facility] Beatriz Price : review the previous CT as well as showed patient and her family. I would agree that diverticulitis was mild. I do think that her left-sided back pain is more than her chronic pain and not due to an abdominal issue as there is no current abdominal pain. Discussed with patient that if she would still like a colonoscopy we could talk more about that at follow-up in 1 month. 03/26/24 Lvm Instructed to contact PCP/Provider for symptom changes, concerns or needs. Contacted for: Routine Telephonic Outreach Contact made with patient: No, left message. Alison Hi RN March 26, 2024 3:13 PM documented in this encounterPike [facility]09-09-2024 NoteHNO ID: [id number] Author: ALISON HI RN Service: ? Author Type: Registered Nurse Type: Progress Notes Filed: 03/27/2024 10:44 Note Text: CDM Telephonic Outreach Provider Action/FYI CDM: CKD, COPD Hx of diverticulitis of colon 03/08/24 [facility] ED Dx: Sob, Abd Pain Plan by [facility] Beatriz Price : review the previous CT as well as showed patient and her family. I would agree that diverticulitis was mild. I do think that her left-sided back pain is more than her chronic pain and not due to an abdominal issue as there is no current abdominal pain. Discussed with patient that if she would still like a colonoscopy we could talk more about that at follow-up in 1 month. 03/26/24 Lvm Instructed to contact PCP/Provider for symptom changes, concerns or needs. Contacted for: Routine Telephonic Outreach Contact made with patient: No, left message. Alison Hi RN March 26, 2024 3:13 [facility]09-09-2024 NotePatient Outreach ([facility]) DICK ARTIS ([id number]) 1935 F Date Time Provider Department 03/26/24 ALISON HI [facility] During your visit today, we recorded the following information about you: Alison Hi RN 03/27/2024 10:44 AM Signed CDM Telephonic Outreach Provider Action/FYI CDM: CKD, COPD Hx of diverticulitis of colon 03/08/24 [facility] ED Dx: Sob, Abd Pain Plan by [facility] Beatriz Price : review the previous CT as well as showed patient and her family. I would agree that diverticulitis was mild. I do think that her left-sided back pain is more than her chronic pain and not due to an abdominal issue as there is no current abdominal pain. Discussed with patient that if she would still like a colonoscopy we could talk more about that at follow-up in 1 month. 03/26/24 Lvm Instructed to contact PCP/Provider for symptom changes, concerns or needs. Contacted for: Routine Telephonic Outreach Contact made with patient: No, left message. Alison Hi RN March 26, 2024 3:13 PM Alison Hi RN 03/27/2024 10:44 AM Signed CDM Telephonic Outreach Provider Action/FYI CDM: CKD, COPD Hx of diverticulitis of colon 03/08/24 [facility] ED Dx: Sob, Abd Pain Plan by [facility] Beatriz Price : review the previous CT as well as showed patient and her family. I would agree that diverticulitis was mild. I do think that her left-sided back pain is more than her chronic pain and not due to an abdominal issue as there is no current abdominal pain. Discussed with patient that if she would still like a colonoscopy we could talk more about that at follow-up in 1 month. 03/27/24 2nd Call Instructed to contact PCP/Provider for symptom changes, concerns or needs. Contacted for: Routine Telephonic Outreach Contact made with patient: No, left message. Alison Hi RN March 27, 2024 10:42 AM Allergies As of Date: 03/26/2024 Noted Allergy Reaction AMLODIPINE 02/16/2016 7 - Swelling Comments: Lower leg edema. ASPIRIN 05/19/2005 16 - Unknown LISINOPRIL 09/06/2011 3 - Cough REQUIP (ROPINIROLE) 09/26/2007 14 - Other: See Comments Comments: Very anxious Date Reviewed: 02/08/2024 Reviewed by: Rosaura Suárez APRN.YARD CRANE OPERATOR - Fully Assessed Reason for Visit: CDM [Other] Cmt: Chronic Disease Management Routine Call Prescriptions as of 03/27/2024 - furosemide (LASIX) 40 mg tablet Take 1 tablet by mouth two times a day. - potassium chloride 20 mEq/15 mL solution Take 15 mL by mouth once daily. - zolpidem (AMBIEN) 5 mg tablet Take 1 tablet by mouth at bedtime as needed for up to 180 days. - pantoprazole DR (PROTONIX) 40 mg tablet Take 1 tablet by mouth once daily. - DULoxetine (CYMBALTA) 20 mg capsule Take 2 capsules by mouth once daily. - carvedilol (COREG) 25 mg tablet Take 1 tablet by mouth two times a day with meals. - pramipexole (MIRAPEX) 1.5 mg tablet Take 1 tablet by mouth daily at bedtime. - spironolactone (ALDACTONE) 25 mg tablet Take 1 tablet by mouth once daily. - iron polysaccharide complex (FERREX-150) 150 mg iron capsule Take 1 capsule by mouth once daily. - Compression Socks, Medium misc 2 Each once daily. Or size to fit. 10-20 mmHg. On in a.m., off in evening. - arformoterol (BROVANA) 15 mcg/2 mL nebulizer solution Inhale 2 mL as instructed every 12 hours. - OXYGEN, HOME THERAPY, 3 L/min by Nasal Cannula route as directed. - acetaminophen (TYLENOL) 500 mg tablet Take 1,000 mg by mouth every 6 hours as needed for pain (EVERY 6 HOURS NEEDED FOR PAIN). - albuterol HFA (VENTOLIN HFA) 90 mcg/actuation inhaler Inhale 2 Puffs as instructed every 4 hours as needed for wheezing/shortness of breath. May take 2 puffs prior to exercise - budesonide (PULMICORT) 0.5 mg/2 mL nebulizer solution USE 1 VIAL IN NEBULIZER EVERY 12 HOURS OVER 5-15 MINUTES - atorvastatin (LIPITOR) 40 mg tablet take 1 tablet daily - clopidogrel (PLAVIX) 75 mg tablet take 1 tablet daily - multivitamin with folic acid (THERA, ONE DAILY) 400 mcg Take by mouth. 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 [facility]08-20-2024 NoteHNO ID: [id number] Author: ALISON HI RN Service: ? Author Type: Registered Nurse Type: Progress Notes Filed: 03/06/2024 17:34 Note Text: CD Telephonic Outreach Provider Action/FYI Left a message to verify symptom status, instructed to contact PCP for condition changes and needs. Contacted for: Routine Telephonic Outreach Contact made with patient: No, left message. Alison Hi RN March 06, 2024 5:33 [facility]08-20-2024 History of Present illness Narrative* Alison Hi RN - 03/06/2024 5:33 PM EDT [facility] Telephonic Outreach Provider Action/FYI Left a message to verify symptom status, instructed to contact PCP for condition changes and needs. Contacted for: Routine Telephonic Outreach Contact made with patient: No, left message. Alison Hi RN March 06, 2024 5:33 PM * Alison Hi RN - 03/05/2024 11:45 AM EDT [facility] Telephonic Outreach Provider Action/FYI 03/05/24 Left a message to verify symptom status and needs. Instructed to call PCP with any symptom or condition changes. Contacted for: Routine Telephonic Outreach Contact made with patient: No, left message. Alison Hi RN March 05, 2024 11:45 AM [facility]24 NoteHNO ID: [id number] Author: ALISON HI RN Service: ? Author Type: Registered Nurse Type: Progress Notes Filed: 03/06/2024 17:34 Note Text: [facility] Telephonic Outreach Provider Action/FYI 03/05/24 Left a message to verify symptom status and needs. Instructed to call PCP with any symptom or condition changes. Contacted for: Routine Telephonic Outreach Contact made with patient: No, left message. Alison Hi RN March 05, 2024 11:45 [facility]08-19-2024 NotePatient Outreach ([facility]) DICK ARTIS ([id number]) 1935 F Date Time Provider Department 03/05/24 ALISON HI AMBG During your visit today, we recorded the following information about you: Alison Hi RN 03/06/2024 5:34 PM Signed [facility] Telephonic Outreach Provider Action/FYI 03/05/24 Left a message to verify symptom status and needs. Instructed to call PCP with any symptom or condition changes. Contacted for: Routine Telephonic Outreach Contact made with patient: No, left message. Alison Hi RN March 05, 2024 11:45 AM Alison Hi RN 03/06/2024 5:34 PM Signed [facility] Telephonic Outreach Provider Action/FYI Left a message to verify symptom status, instructed to contact PCP for condition changes and needs. Contacted for: Routine Telephonic Outreach Contact made with patient: No, left message. Alison Hi RN March 06, 2024 5:33 PM Allergies As of Date: 03/05/2024 Noted Allergy Reaction AMLODIPINE 02/16/2016 7 - Swelling Comments: Lower leg edema. ASPIRIN 05/19/2005 16 - Unknown LISINOPRIL 09/06/2011 3 - Cough REQUIP (ROPINIROLE) 09/26/2007 14 - Other: See Comments Comments: Very anxious Date Reviewed: 02/08/2024 Reviewed by: Rosaura Suárez APRN.YARD CRANE OPERATOR - Fully Assessed Reason for Visit: Community Monitoring Outreach [Other] Prescriptions as of 03/06/2024 - furosemide (LASIX) 40 mg tablet Take 1 tablet by mouth two times a day. - potassium chloride 20 mEq/15 mL solution Take 15 mL by mouth once daily. - zolpidem (AMBIEN) 5 mg tablet Take 1 tablet by mouth at bedtime as needed for up to 180 days. - pantoprazole DR (PROTONIX) 40 mg tablet Take 1 tablet by mouth once daily. - DULoxetine (CYMBALTA) 20 mg capsule Take 2 capsules by mouth once daily. - carvedilol (COREG) 25 mg tablet Take 1 tablet by mouth two times a day with meals. - pramipexole (MIRAPEX) 1.5 mg tablet Take 1 tablet by mouth daily at bedtime. - spironolactone (ALDACTONE) 25 mg tablet Take 1 tablet by mouth once daily. - iron polysaccharide complex (FERREX-150) 150 mg iron capsule Take 1 capsule by mouth once daily. - Compression Socks, Medium misc 2 Each once daily. Or size to fit. 10-20 mmHg. On in a.m., off in evening. - arformoterol (BROVANA) 15 mcg/2 mL nebulizer solution Inhale 2 mL as instructed every 12 hours. - OXYGEN, HOME THERAPY, 3 L/min by Nasal Cannula route as directed. - acetaminophen (TYLENOL) 500 mg tablet Take 1,000 mg by mouth every 6 hours as needed for pain (EVERY 6 HOURS NEEDED FOR PAIN). - albuterol HFA (VENTOLIN HFA) 90 mcg/actuation inhaler Inhale 2 Puffs as instructed every 4 hours as needed for wheezing/shortness of breath. May take 2 puffs prior to exercise - budesonide (PULMICORT) 0.5 mg/2 mL nebulizer solution USE 1 VIAL IN NEBULIZER EVERY 12 HOURS OVER 5-15 MINUTES - atorvastatin (LIPITOR) 40 mg tablet take 1 tablet daily - clopidogrel (PLAVIX) 75 mg tablet take 1 tablet daily - multivitamin with folic acid (THERA, ONE DAILY) 400 mcg Take by mouth. 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] 05/24/2008 HTN (hypertension), benign [I10] 08/12/2009 Hypokalemia [E87.6] 08/12/2009 COPD (chronic obstructive pulmonary disease) [J*08/24/2010 S/P unilateral salpingo-oophorectomy [Z90.721] 02/18/2011 S/P WILFREDO (total abdominal hysterectomy) [Z90.710]02/18/2011 Hyperlipidemia [E78.5] 04/21/2011 Hypertension [I10] 04/21/2011 Vitamin D deficiency [E55.9] 03/06/2012 Nonspecific abnormal finding in stool contents *03/31/2012 02/08/2024 Acute gastritis without mention of hemorrhage [*03/31/2012 02/08/2024 Calculi, ureter [N20.1] 06/02/2012 HTN (hypertension) [I10] 12/11/2014 04/07/2015 Essential hypertension [I10] 04/07/2015 Mixed simple and mucopurulent chronic bronchiti*01/10/2016 Mixed hyperlipidemia [E78.2] 01/10/2016 Herpes zoster without complication [B02.9] 02/28/2016 02/08/2024 Bifascicular block [I45.2] 10/11/2016 Obesity, Class I, BMI 30-34.9 [E66.9] 07/30/2018 Stage 3b chronic kidney disease (HCC) [N18.32] 07/30/2018 TIA (transient ischemic attack) [G45.9] 05/26/2020 Carotid artery stenosis [I65.29] 01/23/2021 PAD (peripheral artery disease) (HCC) [I73.9] 11/11/2021 Chronic bilateral thoracic back pain [M54.6, G8*04/04/2023 Lumbar pain [M54.50] 04/04/2023 Osteopenia of lumbar spine [M85.88] 05/23/2023 Type 2 diabetes mellitus with hyperglycemia, wi*10/19/2023 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 Author Type: Registered Nurse Type: Progress Notes Filed: 03/05/2024 11:39 Note Text: CDM Telephonic Outreach Provider Action/FYI CDM: CKD, COPD 02/08/24 OV for Left Flank pain, Kub ordered 02/29/24 Left a message to verify symptom status, instructed to contact PCP for condition changes and needs. Goals updated Contacted for: Routine Telephonic Outreach Contact made with patient: No, left message. Alison Hi RN February 29, 2024 2:[facility] of Present illness Narrative* Alison Hi RN - 02/29/2024 2:53 PM EDT CDM Telephonic Outreach Provider Action/FYI CDM: CKD, COPD 02/08/24 OV for Left Flank pain, Kub ordered 02/29/24 Left a message to verify symptom status, instructed to contact PCP for condition changes and needs. Goals updated Contacted for: Routine Telephonic Outreach Contact made with patient: No, left message. Alison Hi RN February 29, 2024 2:57 PM documented in [facility] encounterP[facility]08-[facility]24 NotePatient Outreach ([facility]) DICK ARTIS ([id number]) 1935 F Date Time Provider Department 02/29/24 ALISON HI [facility] During your visit today, we recorded the following information about you: Alison Hi RN 03/05/2024 11:39 AM Addendum CDM Telephonic Outreach Provider Action/FYI CDM: CKD, COPD 02/08/24 OV for Left Flank pain, Kub ordered 02/29/24 Left a message to verify symptom status, instructed to contact PCP for condition changes and needs. Goals updated Contacted for: Routine Telephonic Outreach Contact made with patient: No, left message. Alison Hi RN February 29, 2024 2:57 PM Allergies As of Date: 02/29/2024 Noted Allergy Reaction AMLODIPINE 02/16/2016 7 - Swelling Comments: Lower leg edema. ASPIRIN 05/19/2005 16 - Unknown LISINOPRIL 09/06/2011 3 - Cough REQUIP (ROPINIROLE) 09/26/2007 14 - Other: See Comments Comments: Very anxious Date Reviewed: 02/08/2024 Reviewed by: Rosaura Suárez APRN.YARD CRANE OPERATOR - Fully Assessed Reason for Visit: Community Monitoring Outreach [Other] Prescriptions as of 03/05/2024 - furosemide (LASIX) 40 mg tablet Take 1 tablet by mouth two times a day. - potassium chloride 20 mEq/15 mL solution Take 15 mL by mouth once daily. - zolpidem (AMBIEN) 5 mg tablet Take 1 tablet by mouth at bedtime as needed for up to 180 days. - pantoprazole DR (PROTONIX) 40 mg tablet Take 1 tablet by mouth once daily. - DULoxetine (CYMBALTA) 20 mg capsule Take 2 capsules by mouth once daily. - carvedilol (COREG) 25 mg tablet Take 1 tablet by mouth two times a day with meals. - pramipexole (MIRAPEX) 1.5 mg tablet Take 1 tablet by mouth daily at bedtime. - spironolactone (ALDACTONE) 25 mg tablet Take 1 tablet by mouth once daily. - iron polysaccharide complex (FERREX-150) 150 mg iron capsule Take 1 capsule by mouth once daily. - Compression Socks, Medium misc 2 Each once daily. Or size to fit. 10-20 mmHg. On in a.m., off in evening. - arformoterol (BROVANA) 15 mcg/2 mL nebulizer solution Inhale 2 mL as instructed every 12 hours. - OXYGEN, HOME THERAPY, 3 L/min by Nasal Cannula route as directed. - acetaminophen (TYLENOL) 500 mg tablet Take 1,000 mg by mouth every 6 hours as needed for pain (EVERY 6 HOURS NEEDED FOR PAIN). - albuterol HFA (VENTOLIN HFA) 90 mcg/actuation inhaler Inhale 2 Puffs as instructed every 4 hours as needed for wheezing/shortness of breath. May take 2 puffs prior to exercise - budesonide (PULMICORT) 0.5 mg/2 mL nebulizer solution USE 1 VIAL IN NEBULIZER EVERY 12 HOURS OVER 5-15 MINUTES - atorvastatin (LIPITOR) 40 mg tablet take 1 tablet daily - clopidogrel (PLAVIX) 75 mg tablet take 1 tablet daily - multivitamin with folic acid (THERA, ONE DAILY) 400 mcg Take by mouth. 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] 05/24/2008 HTN (hypertension), benign [I10] 08/12/2009 Hypokalemia [E87.6] 08/12/2009 COPD (chronic obstructive pulmonary disease) [J*08/24/2010 S/P unilateral salpingo-oophorectomy [Z90.721] 02/18/2011 S/P WILFREDO (total abdominal hysterectomy) [Z90.710]02/18/2011 Hyperlipidemia [E78.5] 04/21/2011 Hypertension [I10] 04/21/2011 Vitamin D deficiency [E55.9] 03/06/2012 Nonspecific abnormal finding in stool contents *03/31/2012 02/08/2024 Acute gastritis without mention of hemorrhage [*03/31/2012 02/08/2024 Calculi, ureter [N20.1] 06/02/2012 HTN (hypertension) [I10] 12/11/2014 04/07/2015 Essential hypertension [I10] 04/07/2015 Mixed simple and mucopurulent chronic bronchiti*01/10/2016 Mixed hyperlipidemia [E78.2] 01/10/2016 Herpes zoster without complication [B02.9] 02/28/2016 02/08/2024 Bifascicular block [I45.2] 10/11/2016 Obesity, Class I, BMI 30-34.9 [E66.9] 07/30/2018 Stage 3b chronic kidney disease (HCC) [N18.32] 07/30/2018 TIA (transient ischemic attack) [G45.9] 05/26/2020 Carotid artery stenosis [I65.29] 01/23/2021 PAD (peripheral artery disease) (HCC) [I73.9] 11/11/2021 Chronic bilateral thoracic back pain [M54.6, G8*04/04/2023 Lumbar pain [M54.50] 04/04/2023 Osteopenia of lumbar spine [M85.88] 05/23/2023 Type 2 diabetes mellitus with hyperglycemia, wi*10/19/2023 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.*11/30/2023 Encounter Status:Closed by ALISON HI on 02/29/24[facility]08-13-2024 Telephone encounter Note* Telephone Encounter - Kathrine Bellamy - 02/28/2024 9:35 AM EDT Prescription Refill Information The patient has been identified by name and date of : Yes Caregiver verified no other encounters exist for this prescription request: Yes Caregiver confirmed with patient/requestor that no other refills are due, in the near future, with this provider at this time: Yes The last office visit in the department: 02/08/2024 Does the patient have a future office visit with this provider/department: Yes Requested Prescriptions Pending Prescriptions Disp Refills furosemide (LASIX) 40 mg tablet 180 tablet 2 Sig: Take 1 tablet by mouth two times a day. Kathrine Cortez February 28, 2024 9:35 AM [facility]08-13-2024 Miscellaneous Notes* Telephone Encounter - Kathrine Bellamy - 02/28/2024 9:35 AM EDT Prescription Refill Information The patient has been identified by name and date of : Yes Caregiver verified no other encounters exist for this prescription request: Yes Caregiver confirmed with patient/requestor that no other refills are due, in the near future, with this provider at this time: Yes The last office visit in the department: 02/08/2024 Does the patient have a future office visit with this provider/department: Yes Requested Prescriptions Pending Prescriptions Disp Refills furosemide (LASIX) 40 mg tablet 180 tablet 2 Sig: Take 1 tablet by mouth two times a day. Kathrine [facility] February 28, 2024 9:35 AM documented in this encounterPike [facility]07-29-2024 Note* Addendum Note - Rosaura Suárez APRN.CNP - 02/13/2024 2:12 PM EDTAddended by: ROSAURA SUÁREZ on: 02/13/2024 02:12 PM Modules accepted: Orders [facility]07-29-2024 Miscellaneous Notes* Addendum Note - Rosaura Suárez APRN.CNP - 02/13/2024 2:12 PM EDTAddended by: ROSAURA SUÁREZ on: 02/13/2024 02:12 PM Modules accepted: Orders * Addendum Note - Diann Nascimento LPN - 02/13/2024 2:02 PM EDTAddended by: DIANN NASCIMENTO on: 02/13/2024 02:02 PM Modules accepted: Orders * Telephone Encounter - Diann Nascimento LPN - 02/13/2024 2:01 PM EDT Patient notified of same. Requesting a new order be sent with corrected directions to pharmacy * Telephone Encounter - Rosaura Suárez APRN.CNP - 02/13/2024 1:10 PM EDT Since we ruled out a kidney stone this pain seems to be stemming from a musculoskeletal issue, I suspect a muscle strain. If it does not continue to improve then let us know. The potassium can be reduced to 20 meq once daily instead of twice daily. I will adjust her liquid potassium order to match that. * Telephone Encounter - Helena Quevedo RN - 02/13/2024 10:56 AM EDT Patient called and notified of results and providers instructions. Patient verbalizes understanding. Patient currently taking potassium 20 meq twice daily. Has a one week supply left. Reports next order was going to be for liquid potassium to go to [facility] pharmacy. Patient reports that she is still having the left side pain not any better or worse in rating but it now comes and goes rather than staying constant. Helena Quevedo RN * Telephone Encounter - Rosaura Suárez APRN.CNP - 02/13/2024 10:19 AM EDT Labs are overall stable, she is okay to stop her vitamin D3 supplement and she can stop her magnesium supplement too. Also can stop the vitamin C BUT she does still need to take the iron supplement. Potassium was also good on the labs, currently she is using up her prior potassium pills, what dose of the potassium supplements is she taking? We can likely reduce that. Her xray did not show signs of a kidney stone, no other issues seen either. Is she still having theside pain that she had when in to the office? * Telephone Encounter - Helena Quevedo RN - 02/13/2024 9:55 AM EDT Patient calls to ask if provider has reviewed labs from 02/08/2024. Notified patient that provider hadn't had a chance to review yet but once completed we would contact her with provider recommendation. Helena Quevedo RN documented in this encounterP[facility]07-29-2024 Note* Addendum Note - Diann Nascimento LPN - 02/13/2024 2:02 PM EDTAddended by: DIANN NASCIMENTO on: 02/13/2024 02:02 PM Modules accepted: Orders [facility]07-29-2024 Telephone encounter Note* Telephone Encounter - Diann Nascimento LPN - 02/13/2024 2:01 PM EDT Patient notified of same. Requesting a new order be sent with corrected directions to pharmacy [facility]07-29-[facility] Telephone encounter Note* Telephone Encounter - Rosaura Suárez APRN.CORINNA - 02/13/2024 1:10 PM EDT Since we ruled out a kidney stone this pain seems to be stemming from a musculoskeletal issue, I suspect a muscle strain. If it does not continue to improve then let us know. The potassium can be reduced to 20 meq once daily instead of twice daily. I will adjust her liquid potassium order to match that. [facility]07-29-[facility] Telephone encounter Note* Telephone Encounter - Helena Quevedo RN - 02/13/2024 10:56 AM EDT Patient called and notified of results and providers instructions. Patient verbalizes understanding. Patient currently taking potassium 20 meq twice daily. Has a one week supply left. Reports next order was going to be for liquid potassium to go to [facility] pharmacy. Patient reports that she is still having the left side pain not any better or worse in rating but it now comes and goes rather than staying constant. Helena Quevedo RN [facility]07-29-2024 Telephone encounter Note* Telephone Encounter - Rosaura Suárez APRN.CNP - 02/13/2024 10:19 AM EDT Labs are overall stable, she is okay to stop her vitamin D3 supplement and she can stop her magnesium supplement too. Also can stop the vitamin C BUT she does still need to take the iron supplement. Potassium was also good on the labs, currently she is using up her prior potassium pills, what dose of the potassium supplements is she taking? We can likely reduce that. Her xray did not show signs of a kidney stone, no other issues seen either. Is she still having theside pain that she had when in to the office? [facility]07-29-[facility] Telephone encounter Note* Telephone Encounter - Helena Quevedo RN - 02/13/2024 9:55 AM EDT Patient calls to ask if provider has reviewed labs from 02/08/2024. Notified patient that provider hadn't had a chance to review yet but once completed we would contact her with provider recommendation. Helena Quevedo RN [facility]07-24-[facility]24 History of Present illness Narrative* Nilsa Palacios, RT(R) - 02/08/2024 11:30 AM EDT Radiology Service Progress Note PATIENT NAME: Dick Artis DATE OF SERVICE: February 08, 2024 TIME: 11:25 AM PATIENT IDENTITY VERIFICATION COMPLETED USING TWO (2) IDENTIFIERS: Name and Date of confirmedby patient verbally. FALL SCREENING: Has the patient had 2 falls in the last year or 1 fall with injury or currently using an Ambulatory Assistive Device (Walker, Cane, Wheelchair, Crutches, etc.)? No PATIENT GENDER DATA: Female. status: : No status: NO. PATIENT RELEVANT IMPLANT DATA REVIEWED: Yes PATIENT PRESENTS WITH AN IMPLANTABLE OR ATTACHED ELECTROPHYSIOLOGY SCIENTIST: No RADIOLOGY DEPARTMENT: General X-ray: Exam(s) Completed: Abdomen X-Ray: Abdomen with Obliques PERIPHERAL IV DATA: Not applicable SIGNED BY: LYLY Enciso) February 08, 2024 11:25 AM documented in this encounterPike [facility]07-24-2024 NoteHNO ID: [id number] Author: NILSA PALACIOS RT (R) Service: Radiology Author Type: Technologist Type: Progress Notes Filed: 02/08/2024 11:44 Note Text: Radiology Service Progress Note PATIENT NAME: Dick Artis DATE OF SERVICE: February 08, 2024 TIME: 11:25 AM PATIENT IDENTITY VERIFICATION COMPLETED USING TWO (2) IDENTIFIERS: Name and Date of confirmed by patient verbally. FALL SCREENING: Has the patient had 2 falls in the last year or 1 fall with injury or currently using an Ambulatory Assistive Device (Walker, Cane, Wheelchair, Crutches, etc.)? No PATIENT GENDER DATA: Female. status: : No status: NO. PATIENT RELEVANT IMPLANT DATA REVIEWED: Yes PATIENT PRESENTS WITH AN IMPLANTABLE OR ATTACHED ELECTROPHYSIOLOGY SCIENTIST: No RADIOLOGY DEPARTMENT: General X-ray: Exam(s) Completed: Abdomen X-Ray: Abdomen with Obliques PERIPHERAL IV DATA: Not applicable SIGNED BY: LYLY Enciso) February 08, 2024 11:25 [facility]07-24-2024 NoteHNO ID: [id number] Author: ROSAURA SUÁREZ APRN.YARD CRANE OPERATOR Service: ? Author Type: Nurse Practitioner Type: Progress Notes Filed: 02/08/2024 13:30 Note Text: SUBJECTIVE Dick Artis is a 88 year old female here today for a check up on her medical problems. Chief Complaint Patient presents with: Recheck Flank Pain: left constant for about 2 weeks HPI Dick Artis is a 88 year old female. She is an established patient of Mady Dunn MD. Here today for a routine, 6 week follow up. She states today she feels she is doing okay overall. Notes concerns of some left flank pain, on going for about 2 weeks. No feeling the same as prior kidney stones but she does have a history of prior stones. No rash, does not feel like shingles. Sometimes feels better with moving/stretching. Continues with working with pain management at [facility] for her back pain. Last hgba1c at [facility] 09/14 7.2%. Sleeping well with ambien. Continues to follow with pulmonary. On o2. She questions if she might be able to reduce some of her supplements soon. Her medications were reviewed today and her list is now up to date. Medications Current Outpatient Medications Medication Sig DULoxetine (CYMBALTA) 20 mg capsule Take 2 capsules by mouth once daily. carvedilol (COREG) 25 mg tablet Take 1 tablet by mouth two times a day with meals. pramipexole (MIRAPEX) 1.5 mg tablet Take 1 tablet by mouth daily at bedtime. potassium chloride 20 mEq/15 mL solution Take 15 mL by mouth two times a day. spironolactone (ALDACTONE) 25 mg tablet Take 1 tablet by mouth once daily. iron polysaccharide complex (FERREX-150) 150 mg iron capsule Take 1 capsule by mouth once daily. magnesium oxide (MAG-OX) 400 mg (241.3 mg magnesium) tablet Take 1 tablet by mouth once daily. furosemide (LASIX) 40 mg tablet Take 1 tablet by mouth two times a day. Cholecalciferol, Vitamin D3, 25 mcg (1,000 unit) cap Take 2 capsules by mouth once daily. arformoterol (BROVANA) 15 mcg/2 mL nebulizer solution Inhale 2 mL as instructed every 12 hours. ascorbic acid, vitamin C, 500 mg cap Take 500 mg by mouth once daily. acetaminophen (TYLENOL) 500 mg tablet Take 1,000 mg by mouth every 6 hours as needed for pain (EVERY 6 HOURS NEEDED FOR PAIN). albuterol HFA (VENTOLIN HFA) 90 mcg/actuation inhaler Inhale 2 Puffs as instructed every 4 hours as needed for wheezing/shortness of breath. May take 2 puffs prior to exercise budesonide (PULMICORT) 0.5 mg/2 mL nebulizer solution USE 1 VIAL IN NEBULIZER EVERY 12 HOURS OVER 5-15 MINUTES atorvastatin (LIPITOR) 40 mg tablet take 1 tablet daily (Patient taking differently: Take 40 mg by mouth daily at bedtime.) clopidogrel (PLAVIX) 75 mg tablet take 1 tablet daily multivitamin with folic acid (THERA, ONE DAILY) 400 mcg Take by mouth. zolpidem (AMBIEN) 5 mg tablet Take 1 tablet by mouth at bedtime as needed for up to [address] (PROTONIX) 40 mg tablet Take 1 tablet by mouth once daily. Compression Socks, Medium misc 2 Each once daily. Or size to fit. 10-20 mmHg. On in a.m., off in evening. OXYGEN, HOME THERAPY, 3 L/min by Nasal Cannula route as directed. No current facility-administered medications for this visit. ALLERGIES Allergen Reactions Amlodipine Swelling Lower leg edema. Aspirin Unknown Lisinopril Cough Requip [Ropinirole] Other: See Comments Very anxious ACTIVE PROBLEM LIST Moderate Recurrent Major Depression ([facility]) - 11/30/2023 Type 2 Diabetes Mellitus With Hyperglycemia, Without Long-Term Current Use of Insulin ([facility]) - 10/19/2023 Osteopenia of Lumbar Spine - 05/23/2023 Chronic Bilateral Thoracic Back Pain - 04/04/2023 Lumbar Pain - 04/04/2023 Pad (Peripheral Artery Disease) ([facility]) - 11/11/2021 Carotid Artery Stenosis - 01/23/2021 Tia (Transient Ischemic Attack) - 05/26/2020 Comment: history of TIA, remote Obesity, Class I, Bmi 30-34.9 - 07/30/2018 Stage 3b Chronic Kidney Disease ([facility]) - 07/30/2018 Bifascicular Block - 10/11/2016 Mixed Simple and Mucopurulent Chronic Bronchitis ([facility]) - 01/10/2016 Mixed Hyperlipidemia - 01/10/2016 Essential Hypertension - 04/07/2015 Calculi, 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 Basilio @ [facility]- Cystopscopy, left retrograde pyelogram, left ureteroscopy, basked extraction of ureteral tissue Vitamin D Deficiency - 03/06/2012 Hyperlipidemia - 04/21/2011 Hypertension - 04/21/2011 Comment: 05/23/2023: Home BP Cuff Validated. Home BP: 143/56 p70 Office BP: 134/60 p69 S/P Unilateral Salpingo-Oophorectomy - 02/18/2011 S/P Wilfredo (Total Abdominal Hysterectomy) - 02/18/2011 Copd (Chronic Obstructive Pulmonary Disease) (Hcc) - 08/24/2010 Htn (Hypertension), Benign - 08/12/2009 Comment: 11/30/2023: Home BP Cuff Validated. Home BP: 136/61 P 85 Office BP: 130/50 P 85 Hypokalemia - 08/12/2009 Brachial Neuritis Or Radiculitis NOS - 05/24/2008 Diverticulosis of Colon (Without Mention of Hemorrhage) Comment: Diverticulosis (more content not included)...[facility]07-24-2024 History of Present illness Narrative* Rosaura Suárez APRN.YARD CRANE OPERATOR - 02/08/2024 10:09 AM EDT SUBJECTIVE Dick Artis is a 88 year old female here today for a check up on her medical problems. Chief Complaint Patient presents with: Recheck Flank Pain: left constant for about 2 weeks HPI Dick Artis is a 88 year old female. She is an established patient of Mady Dunn MD. Here today for a routine, 6 week follow up. She states today she feels she is doing okay overall. Notes concerns of some left flank pain, on going for about 2 weeks. No feeling the same as prior kidney stones but she does have a history of prior stones. No rash, does not feel like shingles. Sometimes feels better with moving/stretching. Continues with working with pain management at [facility] for her back pain. Last hgba1c at [facility] 09/14 7.2%. Sleeping well with ambien. Continues to follow with pulmonary. On o2. She questions if she might be able to reduce some of her supplements soon. Her medications were reviewed today and her list is now up to date. Medications Current Outpatient Medications Medication Sig DULoxetine (CYMBALTA) 20 mg capsule Take 2 capsules by mouth once daily. carvedilol (COREG) 25 mg tablet Take 1 tablet by mouth two times a day with meals. pramipexole (MIRAPEX) 1.5 mg tablet Take 1 tablet by mouth daily at bedtime. potassium chloride 20 mEq/15 mL solution Take 15 mL by mouth two times a day. spironolactone (ALDACTONE) 25 mg tablet Take 1 tablet by mouth once daily. iron polysaccharide complex (FERREX-150) 150 mg iron capsule Take 1 capsule by mouth once daily. magnesium oxide (MAG-OX) 400 mg (241.3 mg magnesium) tablet Take 1 tablet by mouth once daily. furosemide (LASIX) 40 mg tablet Take 1 tablet by mouth two times a day. Cholecalciferol, Vitamin D3, 25 mcg (1,000 unit) cap Take 2 capsules by mouth once daily. arformoterol (BROVANA) 15 mcg/2 mL nebulizer solution Inhale 2 mL as instructed every 12 hours. ascorbic acid, vitamin C, 500 mg cap Take 500 mg by mouth once daily. acetaminophen (TYLENOL) 500 mg tablet Take 1,000 mg by mouth every 6 hours as needed for pain (EVERY 6 HOURS NEEDED FOR PAIN). albuterol HFA (VENTOLIN HFA) 90 mcg/actuation inhaler Inhale 2 Puffs as instructed every 4 hours asneeded for wheezing/shortness of breath. May take 2 puffs prior to exercise budesonide (PULMICORT) 0.5 mg/2 mL nebulizer solution USE 1 VIAL IN NEBULIZER EVERY 12 HOURS OVER 5-15 MINUTES atorvastatin (LIPITOR) 40 mg tablet take 1 tablet daily (Patient taking differently: Take 40 mg by mouth daily at bedtime.) clopidogrel (PLAVIX) 75 mg tablet take 1 tablet daily multivitamin with folic acid (THERA, ONE DAILY) 400 mcg Take by mouth. zolpidem (AMBIEN) 5 mg tablet Take 1 tablet by mouth at bedtime as needed for up to [address] (PROTONIX) 40 mg tablet Take 1 tablet by mouth once daily. Compression Socks, Medium misc 2 Each once daily. Or size to fit. 10-20 mmHg. On in a.m., off in evening. OXYGEN, HOME THERAPY, 3 L/min by Nasal Cannula route as directed. No current facility-administered medications for this visit. ALLERGIES Allergen Reactions Amlodipine Swelling Lower leg edema. Aspirin Unknown Lisinopril Cough Requip [Ropinirole] Other: See Comments Very anxious ACTIVE PROBLEM LIST Moderate Recurrent Major Depression ([facility]) - 11/30/2023 Type 2 Diabetes Mellitus With Hyperglycemia, Without Long-Term Current Use of Insulin ([facility]) - 10/19/2023 Osteopenia of Lumbar Spine - 05/23/2023 Chronic Bilateral Thoracic Back Pain - 04/04/2023 Lumbar Pain - 04/04/2023 Pad (Peripheral Artery Disease) ([facility]) - 11/11/2021 Carotid Artery Stenosis - 01/23/2021 Tia (Transient Ischemic Attack) - 05/26/2020 Comment: history of TIA, remote Obesity, Class I, Bmi 30-34.9 - 07/30/2018 Stage 3b Chronic Kidney Disease ([facility]) - 07/30/2018 Bifascicular Block - 10/11/2016 Mixed Simple and Mucopurulent Chronic Bronchitis ([facility]) - 01/10/2016 Mixed Hyperlipidemia - 01/10/2016 Essential Hypertension - 04/07/2015 Calculi, 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 Basilio @ [facility]- Cystopscopy, left retrograde pyelogram, left ureteroscopy, basked extraction of ureteral tissue Vitamin D Deficiency - 03/06/2012 Hyperlipidemia - 04/21/2011 Hypertension - 04/21/2011 Comment: 05/23/2023: Home BP Cuff Validated. Home BP: 143/56 p70 Office BP: 134/60 p69 S/P Unilateral Salpingo-Oophorectomy - 02/18/2011 S/P Wilfredo (Total Abdominal Hysterectomy) - 02/18/2011 Copd (Chronic Obstructive Pulmonary Disease) ([facility]) - 08/24/2010 Htn (Hypertension), Benign - 08/12/2009 Comment: 11/30/2023: Home BP Cuff Validated. Home BP: 136/61 P 85 Office BP: 130/50 P 85 Hypokalemia - 08/12/2009 Brachial Neuritis Or Radiculitis [...] 10/04/2016 Years since quittin.3 Smokeless tobacco: Never Tobacco comments: 10-20 year period in 30-40s when quit. Vaping Use Vaping Use: Never used Substance Use Topics Alcohol use: Not Currently Comment: very seldom Drug use: Never Review of Systems Constitutional: Negative. Respiratory: Negative. Cardiovascular: Negative. Genitourinary: Positive for flank pain. Negative for dysuria, frequency and hematuria. OBJECTIVE BP 120/48 Pulse 79 Wt 140 lb (63.5kg) SpO2 95% Physical Exam Vitals and nursing note reviewed. [...] memory normal. Judgment: Judgment normal. ASSESSMENT/PLAN: 1. Acute left flank pain - ICD9: 789.09, 338.19, ICD10: R10.9 (primary diagnosis) Check KUB to look for any stones or other issues. Differentials include kidney stone vs musculoskeletal. - XR ABDOMEN 3V KUB W/OBLIQUES 2. History of kidney stones - ICD9: V13.01, ICD10: Z87.442 - XR ABDOMEN 3V KUB W/OBLIQUES 3. Other insomnia - ICD9: 780.52, ICD10: G47.09 Stable. - ZOLPIDEM 5 MG TABLET 4. HTN (hypertension), benign - ICD9: 401.1, ICD10: I10 - Controlled - Continue current medications - Recommend home blood pressure monitoring, to bring results to next visit - Encouraged sodium restriction, DASH or Mediterranean diet - Recommend regular aerobic exercise 5. Stage 3b chronic kidney disease (HCC) - ICD9: 585.3, ICD10: N18.32 - eGFR: 32 Due for labs - Counseled on avoiding NSAIDs, adequate hydration - Counseled on low sodium diet 6. Chronic hypoxic respiratory failure, on home oxygen therapy (HCC) - ICD9: 518.83, 799.02, V46.2,ICD10: J96.11, Z99.81 Stable. 7. Chronic obstructive pulmonary disease, unspecified COPD type (HCC) - ICD9: 496, ICD10: J44.9 Stable. 8. Type 2 diabetes mellitus with hyperglycemia, without long-term current use of insulin (HCC) - ICD9: 250.00, 790.29, ICD10: E11.65 - Control undetermined, due for labs - Counseled on healthy diet and regular exercise - Discussed need for and benefit of weight loss. BMI 25.61 kg/(m^2) - HEMOGLOBIN A1C 9. Hypomagnesemia - ICD9: 275.2, ICD10: E83.42 - MAGNESIUM 10. Vitamin D deficiency - ICD9: 268.9, ICD10: E55.9 - VITAMIN D 25 HYDROXY 11. Iron deficiency - ICD9: 280.9, ICD10: E61.1 - COMPLETE BLOOD COUNT AND DIFFERENTIAL - IRON AND TIBC - FERRITIN 12. Encounter for therapeutic drug monitoring - ICD9: V58.83, ICD10: Z51.81 - COMPLETE BLOOD COUNT AND DIFFERENTIAL - COMPREHENSIVE METABOLIC PANEL Portions of this note have been entered by ancillary staff. I have reviewed and when necessary edited, so that they are an adequate record of my encounter with this patient Please note that parts of this document were created using voice recognition software and therefore may contain grammatical errors. Patient verbalizes understanding of instructions from today's visit and in agreement with treatmentplan. Questions answered. Agrees to call the office [...] as well as compliance with taking medications. Age- appropriate health preventative measures were discussed. Return in about 8 weeks (around 04/04/2024) for Follow up on chronic conditions and medications.. Rosaura Suárez APRN-CORINNA [facility] NoteHNO ID: [id number] Author: ALISON HI RN Service: ? Author Type: Registered Nurse Type: Progress Notes Filed: 02/03/2024 14:17 Note Text: CDM Telephonic Outreach Provider Action/FYI CDM: CKD, COPD Left a message to verify symptom status, instructed to contact PCP for condition changes and needs. Contacted for: Routine Telephonic Outreach Contact made with patient: No, left message. Alison Hi RN February 03, 2024 2:11 [facility]07-19-2024 History of Present illness Narrative* Alison Hi RN - 02/03/2024 2:10 PM EDT CDM Telephonic Outreach Provider Action/FYI CDM: CKD, COPD Left a message to verify symptom status, instructed to contact PCP for condition changes and needs. Contacted for: Routine Telephonic Outreach Contact made with patient: No, left message. Alison Hi RN February 03, 2024 2:11 PM * Alison Hi RN - 02/02/2024 3:33 PM EDT CDM Telephonic Outreach Provider Action/FYI CDM: CKD, COPD Left a message to verify symptom status, instructed to contact PCP for condition changes and needs. Goals updated Contacted for: Routine Telephonic Outreach Contact made with patient: No, left message. Alison Hi RN February 02, 2024 3:49 PM documented in [facility]07-[facility]-2024 NoteHNO ID: [id number] Author: ALISON HI RN Service: ? Author Type: Registered Nurse Type: Progress Notes Filed: 02/03/2024 14:17 Note Text: CDM Telephonic Outreach Provider Action/FYI CDM: CKD, COPD Left a message to verify symptom status, instructed to contact PCP for condition changes and needs. Goals updated Contacted for: Routine Telephonic Outreach Contact made with patient: No, left message. Alison Hi RN February 02, 2024 3:49 [facility]07-18-2024 NotePatient Outreach ([facility]) DICK ARTIS ([id number]) 1935 F Date Time Provider Department 02/02/24 ALISON HI [facility] During your visit today, we recorded the following information about you: Alison Hi RN 02/03/2024 2:17 PM Signed CDM Telephonic Outreach Provider Action/FYI CDM: CKD, COPD Left a message to verify symptom status, instructed to contact PCP for condition changes and needs. Goals updated Contacted for: Routine Telephonic Outreach Contact made with patient: No, left message. Alison Hi RN February 02, 2024 3:49 PM Alison Hi RN 02/03/2024 2:17 PM Signed CDM Telephonic Outreach Provider Action/FYI CDM: CKD, COPD Left a message to verify symptom status, instructed to contact PCP for condition changes and needs. Contacted for: Routine Telephonic Outreach Contact made with patient: No, left message. Alison Hi RN February 03, 2024 2:11 PM Allergies As of Date: 02/02/2024 Noted Allergy Reaction AMLODIPINE 02/16/2016 7 - Swelling Comments: Lower leg edema. ASPIRIN 05/19/2005 16 - Unknown LISINOPRIL 09/06/2011 3 - Cough REQUIP (ROPINIROLE) 09/26/2007 14 - Other: See Comments Comments: Very anxious Date Reviewed: 12/28/2023 Reviewed by: Rosaura Suárez APRN.YARD CRANE OPERATOR - Fully Assessed Reason for Visit: Community Monitoring Outreach [Other] Prescriptions as of 02/03/2024 - DULoxetine (CYMBALTA) 20 mg capsule Take 2 capsules by mouth once daily. - zolpidem (AMBIEN) 5 mg tablet Take 1 tablet by mouth at bedtime as needed for up to 30 days. - carvedilol (COREG) 25 mg tablet Take 1 tablet by mouth two times a day with meals. - pramipexole (MIRAPEX) 1.5 mg tablet Take 1 tablet by mouth daily at bedtime. - baclofen 5 mg tablet Take 5 mg by mouth as needed. - potassium chloride 20 mEq/15 mL solution Take 15 mL by mouth two times a day. - spironolactone (ALDACTONE) 25 mg tablet Take 1 tablet by mouth once daily. - iron polysaccharide complex (FERREX-150) 150 mg iron capsule Take 1 capsule by mouth once daily. - pantoprazole DR (PROTONIX) 40 mg tablet Take 1 tablet by mouth two times a day. - tiZANidine (ZANAFLEX) 2 mg tablet Take 1 tablet by mouth every 6 hours as needed (muscle spasm). - magnesium oxide (MAG-OX) 400 mg (241.3 mg magnesium) tablet Take 1 tablet by mouth once daily. - Compression Socks, Medium misc 2 Each once daily. Or size to fit. 10-20 mmHg. On in a.m., off in evening. - furosemide (LASIX) 40 mg tablet Take 1 tablet by mouth two times a day. - Cholecalciferol, Vitamin D3, 25 mcg (1,000 unit) cap Take 2 capsules by mouth once daily. - arformoterol (BROVANA) 15 mcg/2 mL nebulizer solution Inhale 2 mL as instructed every 12 hours. - OXYGEN, HOME THERAPY, 3 L/min by Nasal Cannula route as directed. - ascorbic acid, vitamin C, 500 mg cap Take 500 mg by mouth once daily. - acetaminophen (TYLENOL) 500 mg tablet Take 1,000 mg by mouth every 6 hours as needed for pain (EVERY 6 HOURS NEEDED FOR PAIN). - albuterol HFA (VENTOLIN HFA) 90 mcg/actuation inhaler Inhale 2 Puffs as instructed every 4 hours as needed for wheezing/shortness of breath. May take 2 puffs prior to exercise - budesonide (PULMICORT) 0.5 mg/2 mL nebulizer solution USE 1 VIAL IN NEBULIZER EVERY 12 HOURS OVER 5-15 MINUTES - atorvastatin (LIPITOR) 40 mg tablet take 1 tablet daily - clopidogrel (PLAVIX) 75 mg tablet take 1 tablet daily - multivitamin with folic acid (THERA, ONE DAILY) 400 mcg Take by mouth. 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] 05/24/2008 HTN (hypertension), benign [I10] 08/12/2009 Hypokalemia [E87.6] 08/12/2009 COPD (chronic obstructive pulmonary disease) [J*08/24/2010 S/P unilateral salpingo-oophorectomy [Z90.721] 02/18/2011 S/P WILFREDO (total abdominal hysterectomy) [Z90.710]02/18/2011 Hyperlipidemia [E78.5] 04/21/2011 Hypertension [I10] 04/21/2011 Vitamin D deficiency [E55.9] 03/06/2012 Nonspecific abnormal finding in stool contents *03/31/2012 Acute gastritis without mention of hemorrhage [*03/31/2012 Calculi, ureter [N20.1] 06/02/2012 HTN (hypertension) [I10] 12/11/2014 04/07/2015 Essential hypertension [I10] 04/07/2015 Mixed simple and mucopurulent chronic bronchiti*01/10/2016 Mixed hyperlipidemia [E78.2] 01/10/2016 Herpes zoster without complication [B02.9] 02/28/2016 Bifascicular block [I45.2] 10/11/2016 Obesity, Class I, BMI 30-34.9 [E66.9] 07/30/2018 Stage 3b chronic kidney disease (HCC) [N18.32] 07/30/2018 TIA (transient ischemic attack) [G45.9] 05/26/2020 Carotid artery sten (more content not included)...[facility] 01-20-2024 Telephone encounter Note* Telephone Encounter - Diann Nascimento LPN - 01/20/2024 2:20 PM EDT Home care Certification Form 485 received from [facility]. For cert dates 10/17/2023-12/15/2023 that were signed on 11/08/2023. New Certification Patient's home health 485 form / care plan for stated certification period reviewed and signed. Relevant medical records were reviewed. No changes were indicated [facility]07-05-[facility] Miscellaneous Notes* Telephone Encounter - Diann Nascimento LPN - 01/20/2024 2:20 PM EDT Home care Certification Form 485 received from [facility]. For cert dates 10/17/2023-12/15/2023 that were signed on 11/08/2023. New Certification Patient's home health 485 form / care plan for stated certification period reviewed and signed. Relevant medical records were reviewed. No changes were indicated documented in this encounterP[facility]06-[facility]24 Telephone encounter Note * Telephone Encounter - Nani Scanlon LPN - 01/10/2024 2:21 PM EDT [facility] for Magnesium. Pharmacy will get ready for Patient to pickup. Nani Scanlon LPN [facility]06-[facility]24 Miscellaneous Notes* Telephone Encounter - Nani Scanlon LPN - 01/10/2024 2:21 PM EDT Spoke to Marta [facility], Patient has an active RX for Magnesium. Pharmacy will get ready for Patient to pickup. Nani Scanlon LPN * Telephone Encounter - Johanny Johns - 01/10/2024 2:00 PM EDT Prescription Refill Information The patient has been identified by name and date of : Yes Caregiver verified no other encounters exist for this prescription request: Yes Caregiver confirmed with patient/requestor that no other refills are due, in the near future, with this provider at this time: Yes The last office visit in the department: 11/30/2023 Does the patient have a future office visit with this provider/department: Yes Requested Prescriptions Pending Prescriptions Disp Refills magnesium oxide (MAG-OX) 400 mg (241.3 mg magnesium) tablet 30 tablet 11 Sig: Take 1 tablet by mouth once daily. Johanny Johns January 10, 2024 2:01 PM documented in this encounterP[facility]06-[facility]-2024 Telephone encounter Note * Telephone Encounter - Johanny Johns - 01/10/2024 2:00 PM EDT Prescription Refill Information The patient has been identified by name and date of : Yes Caregiver verified no other encounters exist for this prescription request: Yes Caregiver confirmed with patient/requestor that no other refills are due, in the near future, with this provider at this time: Yes The last office visit in the department: 11/30/2023 Does the patient have a future office visit with this provider/department: Yes Requested Prescriptions Pending Prescriptions Disp Refills magnesium oxide (MAG-OX) 400 mg (241.3 mg magnesium) tablet 30 tablet 11 Sig: Take 1 tablet by mouth once daily. Johanny Johns January 10, 2024 2:01 PM [facility] Telephone encounter Note* Telephone Encounter - Rosaura Suárez APRN.CNP - 12/30/2023 1:44 PM EDT [facility] rx [facility] Miscellaneous Notes* Telephone Encounter - Rosaura Suárez APRN.CNP - 12/30/2023 1:44 PM EDT New rx sent * Telephone Encounter - Betty Duckworth RN - 12/30/2023 1:17 PM EDT Emerson from [facility] called in and reports the insurance was going to charge the Pt $98 for the 40mg of the Duloxetine. She ran 20 mg 2 tablets daily and it would only cost the Pt $16 so she ran itthat way and called and let the Pt know. Please update medication. The patient has been identified by name and date of : Yes Caregiver verified no other encounters exist for this prescription request: Yes Caregiver confirmed with patient/requestor that no other refills are due, in the near future, with this provider at this time: Yes The last office visit in the department: 12/28/2023 Does the patient have a future office visit with this provider/department: Yes 02/08/2024 Requested Prescriptions Pending Prescriptions Disp Refills DULoxetine (CYMBALTA) 20 mg capsule 30 capsule 3 Sig: Take 2 capsules by mouth once daily. Betty Duckworth RN December 30, 2023 1:25 PM documented in this encounterPike [facility]06-14-2024 Telephone encounter Note * Telephone Encounter - Betty Duckworth RN - 12/30/2023 1:17 PM EDT Emerson from [facility] called in and reports the insurance was going to charge the Pt $98 for the 40mg of the Duloxetine. She ran 20 mg 2 tablets daily and it would only cost the Pt $16 so she ran itthat way and called and let the Pt know. Please update medication. The patient has been identified by name and date of : Yes Caregiver verified no other encounters exist for this prescription request: Yes Caregiver confirmed with patient/requestor that no other refills are due, in the near future, with this provider at this time: Yes The last office visit in the department: 12/28/2023 Does the patient have a future office visit with this provider/department: Yes 02/08/2024 Requested Prescriptions Pending Prescriptions Disp Refills DULoxetine (CYMBALTA) 20 mg capsule 30 capsule 3 Sig: Take 2 capsules by mouth once daily. Betty Duckworth RN December 30, 2023 1:25 PM [facility]06-12-[facility]24 History of Present illness Narrative* Alison Hi RN - 12/28/2023 1:33 PM EDT CDM Telephonic Outreach Provider Action/FYI CDM: CKD, COPD Left a message to verify symptom status, instructed to contact PCP for condition changes and needs. Contacted for: Routine Telephonic Outreach Contact made with patient: No, left message. Alison Hi RN December 28, 2023 1:34 PM * Alison Hi RN - 12/23/2023 5:30 PM EDT CDM Telephonic Outreach Provider Action/FYI CDM: CKD, COPD Left a message to verify symptom status, instructed to contact PCP for condition changes and needs. Contacted for: Routine Telephonic Outreach Contact made with patient: No, left message. Alison Hi RN December 23, 2023 5:30 PM documented in this encounterP[facility]06[facility] Instructions* Patient Instructions* Rosaura Suárez APRN.CNP - 12/28/2023 9:48 AM EDT Increase the Cymbalta (duloxetine) from 20 mg daily to 40 mg daily. Increase the Coreg (carvedilol) from 12.5 mg twice daily to 25 mg twice daily (okay to use up the 12.5 dose by taking 2 pills). documented in this encounterP[facility]06[facility] History of Present illness Narrative* Rosaura Suárez APRN.CNP - 12/28/2023 9:38 AM EDT SUBJECTIVE Dick Artis is a 88 year old female here today for a check up on her medical problems. Chief Complaint Patient presents with: Recheck HPI Dick Artis is a 88 year old female. She is an established patient of Mday Dunn MD. Here today for a routine follow up. Since last visit she followed up with pain management with [facility] and wasseen with pulmonary with [facility]. Doing well from a pulmonary standpoint. Continues on o2 at 2 l/m. Pain mgmt is working to get her back pain more manageable. Still some anxiety and feelings of depression with worsening pain. Otherwise feeling well, no chest pain, chest tightness, or shortness of breath. Monitoring daily weights, swelling better. Blood pressure has been running higher with home monitoring. Her medications were reviewed today and her list is now up to date. Medications Current Outpatient Medications Medication Sig pramipexole (MIRAPEX) 1.5 mg tablet Take 1 tablet by mouth daily at bedtime. baclofen 5 mg tablet Take 5 mg by mouth as needed. potassium chloride 20 mEq/15 mL solution Take 15 mL by mouth two times a day. spironolactone (ALDACTONE) 25 mg tablet Take 1 tablet by mouth once daily. iron polysaccharide complex (FERREX-150) 150 mg iron capsule Take 1 capsule by mouth once daily. pantoprazole DR (PROTONIX) 40 mg tablet Take 1 tablet by mouth two times a day. tiZANidine (ZANAFLEX) 2 mg tablet Take 1 tablet by mouth every 6 hours as needed (muscle spasm). magnesium oxide (MAG-OX) 400 mg (241.3 mg magnesium) tablet Take 1 tablet by mouth once daily. furosemide (LASIX) 40 mg tablet Take 1 tablet by mouth two times a day. Cholecalciferol, Vitamin D3, 25 mcg (1,000 unit) cap Take 2 capsules by mouth once daily. arformoterol (BROVANA) 15 mcg/2 mL nebulizer solution Inhale 2 mL as instructed every 12 hours. ascorbic acid, vitamin C, 500 mg cap Take 500 mg by mouth once daily. acetaminophen (TYLENOL) 500 mg tablet Take 1,000 mg by mouth every 6 hours as needed for pain (EVERY 6 HOURS NEEDED FOR PAIN). albuterol HFA (VENTOLIN HFA) 90 mcg/actuation inhaler Inhale 2 Puffs as instructed every 4 hours asneeded for wheezing/shortness of breath. May take 2 puffs prior to exercise budesonide (PULMICORT) 0.5 mg/2 mL nebulizer solution USE 1 VIAL IN NEBULIZER EVERY 12 HOURS OVER 5-15 MINUTES atorvastatin (LIPITOR) 40 mg tablet take 1 tablet daily (Patient taking differently: Take 40 mg by mouth daily at bedtime.) clopidogrel (PLAVIX) 75 mg tablet take 1 tablet daily multivitamin with folic acid (THERA, ONE DAILY) 400 mcg Take by mouth. DULoxetine (CYMBALTA) 40 mg cpDR Take 1 capsule by mouth once daily. zolpidem (AMBIEN) 5 mg tablet Take 1 tablet by mouth at bedtime as needed for up to 30 days. carvedilol (COREG) 25 mg tablet Take 1 tablet by mouth two times a day with meals. Compression Socks, Medium misc 2 Each once daily. Or size to fit. 10-20 mmHg. On in a.m., off in evening. OXYGEN, HOME THERAPY, 3 L/min by Nasal Cannula route as directed. No current facility-administered medications for this visit. ALLERGIES Allergen Reactions Amlodipine Swelling Lower leg edema. Aspirin Unknown Lisinopril Cough Requip [Ropinirole] Other: See Comments Very anxious ACTIVE PROBLEM LIST Moderate Recurrent Major Depression ([facility]) - 11/30/2023 Type 2 Diabetes Mellitus With Hyperglycemia, Without Long-Term Current Use of Insulin ([facility]) - 10/19/2023 Osteopenia of Lumbar Spine - 05/23/2023 Chronic Bilateral Thoracic Back Pain - 04/04/2023 Lumbar Pain - 04/04/2023 Pad (Peripheral Artery Disease) ([facility]) - 11/11/2021 Carotid Artery Stenosis - 01/23/2021 Tia (Transient Ischemic Attack) - 05/26/2020 Comment: history of TIA, remote Obesity, Class I, Bmi 30-34.9 - 07/30/2018 Stage 3b Chronic Kidney Disease ([facility]) - 07/30/2018 Bifascicular Block - 10/11/2016 Herpes Zoster Without Complication - 02/28/2016 Mixed Simple and Mucopurulent Chronic Bronchitis ([facility]) - 01/10/2016 Mixed Hyperlipidemia - 01/10/2016 Essential Hypertension - 04/07/2015 Calculi, 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 Basilio @ [facility]- Cystopscopy, left retrograde pyelogram, left ureteroscopy, basked extraction of ureteral tissue Nonspecific Abnormal Finding in Stool Contents - 03/31/2012 Acute Gastritis Without Mention of Hemorrhage - 03/31/2012 Vitamin D Deficiency - 03/06/2012 Hyperlipidemia - 04/21/2011 Hypertension - 04/21/2011 Comment: 05/23/2023: Home BP Cuff Validated. Home BP: 143/56 p70 Office BP: 134/60 p69 S/P Unilateral Salpingo-Oophorectomy - 02/18/2011 S/P Wilfredo (Total Abdominal Hysterectomy) - 02/18/2011 Copd (Chronic Obstructive Pulmonary Disease) ([facility]) - 08/24/2010 Htn (Hypertension), Benign - 08/12/2009 Comment: 11/30/2023: Home BP Cuff Validated. Home BP: 136/61 P 85 Office BP: 130/50 P 85 Hypokalemia - 08/12/2009 Brachial Neuritis Or Radiculitis [...] 10/04/2016 Years since quittin.2 Smokeless tobacco: Never Tobacco comments: 10-20 year period in 30-40s when quit. Vaping Use Vaping Use: Never used Substance Use Topics Alcohol use: Not Currently Comment: very seldom Drug use: Never Review of Systems Constitutional: Negative. Respiratory: Negative. Cardiovascular: Negative. OBJECTIVE BP 150/70 Pulse 85 Wt 141 lb (64.0kg) SpO2 95% Physical Exam Vitals and nursing note reviewed. Constitutional: General: She is awake. She is not in acute distress. Appearance: Normal appearance. She is well-developed and well-groomed. She is not ill-appearing, toxic-appearing or diaphoretic. Interventions: Nasal cannula in place. HENT: Head: Normocephalic. Right Ear: External ear [...] memory normal. Judgment: Judgment normal. ASSESSMENT/PLAN: 1. HTN (hypertension), benign - ICD9: 401.1, ICD10: I10 (primary diagnosis) - Worsening control - Increase carvedilol - Recommend home blood pressure monitoring, to bring results to next visit - Encouraged sodium restriction, DASH or Mediterranean diet - Recommend regular aerobic exercise 2. Moderate recurrent major depression (HCC) - ICD9: 296.32, ICD10: F33.1 Increase Cymbalta. 3. Anxiety - ICD9: 300.00, ICD10: F41.9 Increase Cymbalta. - DULOXETINE 40 MG CAPSULE,DELAYED RELEASE 4. Chronic bilateral low back pain, unspecified whether sciatica present - ICD9: 724.2, 338.29, ICD10: M54.50, G89.29 Work with pain mgmt, we will increase Cymbalta and see if helpful. 5. Other insomnia - ICD9: 780.52, ICD10: G47.09 Stable. - ZOLPIDEM 5 MG TABLET Portions of this note have been entered by ancillary staff. I have reviewed and when necessary edited, so that they are an adequate record of my encounter with this patient Please note that parts of this document were created using voice recognition software and therefore may contain grammatical errors. Patient verbalizes understanding of instructions from today's visit and in agreement with treatmentplan. Questions answered. Agrees to call the office [...] as well as compliance with taking medications. Age- appropriate health preventative measures were discussed. Return in about 6 weeks (around 02/08/2024). Rosaura Suárez APRN-CORINNA documented in [facility] encounterP[facility]06[facility] Telephone encounter Note * Telephone Encounter - Diann Nascimento LPN - 12/23/2023 8:11 AM EDT Labs have been faxed to [facility] Outreach. [facility]06-07-2024 Miscellaneous Notes* Telephone Encounter - Diann Nascimento LPN - 12/23/2023 8:11 AM EDT Labs have been faxed to [facility] Outreach. * Telephone Encounter - Mady Dunn MD - 12/23/2023 1:38 AM EDT Labs were improving in November but did not see a magnesium level, and noted that RBCs were larger so might have B12 or folate deficiency. Fax orders to get done prior to 12/27 appointment. * Telephone Encounter - Diann Nascimento LPN - 12/19/2023 2:33 PM EDT Patient is scheduled for a follow up 12/28/2023 and patient claims at last appointment Rosaura had mentioned that she wanted patient to complete labs prior to this appointment. No future labs ordered for 12/2023. Had labs last completed 11/29/2023 through [facility] and addressed at office visit 11/30/2023. If patient is to complete labs will need to fax orders to [facility] Outreach Lab with notation that patient is homebound. documented in this encounterP[facility]06[facility] Telephone encounter Note * Telephone Encounter - Mady Dunn MD - 12/23/2023 1:38 AM EDT Labs were improving in November but did not see a magnesium level, and noted that RBCs were larger so might have B12 or folate deficiency. Fax orders to get done prior to 12/27 appointment. [facility] History of Present illness Narrative* Ana Hernandez PA-C - 12/20/2023 2:59 PM EDT Images from the original note were not included. Patient: Dick Artis PCP: Mady Dunn MD CC: follow up HPI: Dick Artis 88 year old female former [id number] smoker, quitting in 2017 with PMH significant for HTN, TIA, PAD, CKD, moderately severe COPD, renal mass, and abnormal CT of the chest. ChestCT with dense atelectasis in the right lung without obvious endobronchial abnormality and small 4 to 5 mm right pulmonary nodule. Patient was hospitalized in June 2023 at [facility] with AECOPD secondary to bacterial pneumonia. She subsequently developed Covid-pneumonia in July 2023 requiring hospitalization, treated with remdesivir and dexamethasone. She was discharged on supplemental oxygen. Last office visit 10/13/[address] Delvalle at which time Brovana was added to h er nebulized therapy. Currently patient is only using Brovana and Budesonide with as needed Albuterol. She states she has never felt better. The DuoNebs were making her cough and feel like she was choking. Patient denies significant cough, sputum production, hemoptysis, or wheezing. No dyspnea at rest. Exertional dyspnea is improved when compared to 6 months ago. No fevers, chills, or night sweats. No unintended weight loss. No lower extremity edema. No GERD/heartburn. Currently wearing 2L supplemental oxygen during the day, 4L at night. DME: [employer]. PAST MEDICAL HISTORY Diagnosis Date Basal cell carcinoma Carotid stenosis CEA left Chronic hypoxemic respiratory failure (HCC) CKD (chronic kidney disease) stage 3, GFR 30-59 ml/min ([facility]) 07/30/2018 COPD (chronic obstructive pulmonary disease) ([facility]) Diastolic heart failure ([facility]) Diverticulosis of colon (without mention of hemorrhage) Diverticulosis Hypertension Rolly Smith MD NSTEMI (non-ST elevated myocardial infarction) ([facility]) Osteoporosis, unspecified Personal history of colonic polyps Colon polyps Restless legs syndrome (RLS) Spinal stenosis TIA (transient ischemic attack) 2008 Plavix Type 2 diabetes mellitus with hyperglycemia, without long-term current use of insulin ([facility]) 10/19/2023 Allergies: Amlodipine Swelling Comment:Lower leg edema. Aspirin Unknown Lisinopril Cough Requip [Ropinirole] Other: See Comments Comment:Very anxious pramipexole (MIRAPEX) 1.5 mg tablet Take 1 tablet by mouth daily at bedtime. baclofen 5 mg tablet Take 5 mg by mouth as needed. DULoxetine (CYMBALTA) 20 mg capsule Take 1 capsule by mouth once daily. carvedilol (COREG) 12.5 mg tablet Take 12.5 mg by mouth two times a day with meals. potassium chloride 20 mEq/15 mL solution Take 15 mL by mouth two times a day. spironolactone (ALDACTONE) 25 mg tablet Take 1 tablet by mouth once daily. zolpidem (AMBIEN) 5 mg tablet Take 1 tablet by mouth at bedtime as needed for up to 30 days. iron polysaccharide complex (FERREX-150) 150 mg iron capsule Take 1 capsule by mouth once daily. pantoprazole DR (PROTONIX) 40 mg tablet Take 1 tablet by mouth two times a day. tiZANidine (ZANAFLEX) 2 mg tablet Take 1 tablet by mouth every 6 hours as needed (muscle spasm). magnesium oxide (MAG-OX) 400 mg (241.3 mg magnesium) tablet Take 1 tablet by mouth once daily. furosemide (LASIX) 40 mg tablet Take 1 tablet by mouth two times a day. Cholecalciferol, Vitamin D3, 25 mcg (1,000 unit) cap Take 2 capsules by mouth once daily. arformoterol (BROVANA) 15 mcg/2 mL nebulizer solution Inhale 2 mL as instructed every 12 hours. ascorbic acid, vitamin C, 500 mg cap Take 500 mg by mouth once daily. budesonide (PULMICORT) 0.5 mg/2 mL nebulizer solution USE 1 VIAL IN NEBULIZER EVERY 12 HOURS OVER 5-15 MINUTES atorvastatin (LIPITOR) 40 mg tablet take 1 tablet daily (Patient taking differently: Take 40 mg by mouth daily at bedtime.) clopidogrel (PLAVIX) 75 mg tablet take 1 tablet daily multivitamin with folic acid (THERA, ONE DAILY) 400 mcg Take by mouth. Compression Socks, Medium misc 2 Each once daily. Or size to fit. 10-20 mmHg. On in a.m., off in evening. OXYGEN, HOME THERAPY, 3 L/min by Nasal Cannula route as directed. acetaminophen (TYLENOL) 500 mg tablet Take 1,000 mg by mouth every 6 hours as needed for pain (EVERY 6 HOURS NEEDED FOR PAIN). albuterol HFA (VENTOLIN HFA) 90 mcg/actuation inhaler Inhale 2 Puffs as instructed every 4 hours asneeded for wheezing/shortness of breath. May take 2 puffs prior to exercise ipratropium (ATROVENT) 0.02 % nebulizer solution Use 2.5 mL via nebulizer four times daily as needed. OVER 5-15 MINUTES FOR WHEEZING OR SHORTNESS OF BREATH ipratropium (ATROVENT) 0.02 % nebulizer solution USE 1 VIAL (2.5 ML) VIA NEBULIZER FOUR TIMES A DAYOVER 5 TO 15 MINUTES FOR WHEEZING OR SHORTNESS OF BREATH (Patient not taking: Reported on 11/16/2023) albuterol (PROVENTIL) 2.5 mg /3 mL (0.083 %) nebulizer solution Use 3 mL via nebulizer four times daily. USE 1 VIAL (3 ML) VIA NEBULIZER FOUR TIMES A DAY OVER 5 TO 15 MINUTES FOR WHEEZING AND SHORTNESS OF BREATH (Patient not taking: Reported on 11/16/2023) Social History Tobacco Use Smoking status: Former Packs/day: 1.00 Years: 53.00 Additional pack years: 0.00 Total pack years: 53.00 Types: Cigarettes Start date: 08/11/1961 Quit date: 10/04/2016 Years since quittin.2 Smokeless tobacco: Never Tobacco comments: 10-20 year period in 30-40s when quit. Vaping Use Vaping Use: Never used Substance Use Topics Alcohol use: Not Currently Comment: very seldom Drug use: Never Family History Problem Relation Age of Onset Diabetes Mother [...] HYSTERECT W/WO RMVL TUBE OVARY 05/18/1971 Hysterectomy, WILFREDO, LSO carcinoma insitu I reviewed the past medical history, family history, social history and surgical history with changes noted above and updated in EMR. IMMUNIZATIONS Prevnar - 2014 Pneumovax - 2012 Influenza - 2022 COVID-19 - most recent 08/2020 RSV - xx ROS: All other systems reviewed as negative except for what is noted in HPI and review of systems. PHYSICAL EXAMINATION: BP 128/62 Pulse 91 Resp 15 Ht 157.5 cm (5' 2) Wt 66.2 kg (146 lb) SpO2 94% BMI 26.70 kg/m O2: 2L Gen: No acute distress. Cooperative with examination. HEENT: Normocephalic. Sclera, conjunctiva clear. Oral hygeine and dentition good. No thrush. Resp: No stridor, accessory respiratory muscle use, supra-sternal or intercostal retractions. No wheezes, crackles, or rhonchi. CV: Regular rythm. Heart tones normal. Radial pulses normal. Ext: Warm and well perfused. No clubbing, cyanosis, edema. Skin: No rash, ecchymoses. Neuro: Mental status normal. Affect normal. No tremor. DATA: PFT, 12/20/2023 IMPRESSION: Spirometry indicates moderately severe obstruction. Electronically Signed On 12-20-2023 14:45:37 EDT by Lucy Snider MD ASSESSMENT/PLAN: 1. Stage 3 severe COPD by GOLD classification (HCC) - ICD9: 496, ICD10: J44.9 (primary diagnosis) Symptomatically patient is doing well. Reviewed PFTs with patient and daughter. Continue current regimen of Brovana twice daily and budesonide twice daily. Albuterol HFA inhaler, 2 inhalations 10-15 minutes prior to activities associated with shortness ofbreath, and as needed for rescue relief of shortness of breath or wheezing, up to 4 times daily. 2. Chronic hypoxemic respiratory failure (HCC) - ICD9: 518.83, 799.02, ICD10: J96.11 Patient is compliant and benefits from supplemental oxygen. Instructed patient to monitor pulse ox while sitting at rest as she may not need supplemental oxygen at rest. Obtain oximetry with ambulation at next OV. - OXIMETRY WITH AMBULATION 3. Former smoker - ICD9: V15.82, ICD10: Z87.891 Former [id number] smoker having quit in 2017. 4. Post-COVID chronic dyspnea - ICD9: 786.09, 139.8, ICD10: R06.09, U09.9 5. Lung nodule - ICD9: 793.11, ICD10: R91.1 Stable nodule likely benign. Portions of this documentation were copied and pasted from previous office visit notes in order to provide a cohesive continuity of the history. The note has been reviewed and edited and updated as necessary. Ana Hernandez PA-C documented in this encounterP[facility]06[facility] Nurse Note* Angélica Franco LPN - 12/20/2023 2:36 PM EDT Intake information documented in the prior visit with CHANTAL Hollins today. [facility] Nurse Note* Angélica Franco LPN - 12/20/2023 2:36 PM EDT Intake information documented in the prior visit with CHANTAL Hollins today. documented in this [facility]06[facility] History of Present illness Narrative* Heaven Sanchez RPFT - 12/20/2023 2:31 PM EDT PULM FUNCTION SMARTBLOCK: Provider: Alina Delvalle MD Assisting Tech: Heaven Sanchez RPFT Spirometry: 1 documented in this encounterPike [facility]06-[facility]24 Telephone encounter Note * Telephone Encounter - Diann Nascimento LPN - 12/19/2023 2:33 PM EDT Patient is scheduled for a follow up 12/28/2023 and patient claims at last appointment Rosaura had mentioned that she wanted patient to complete labs prior to this appointment. No future labs ordered for 12/2023. Had labs last completed 11/29/2023 through [facility] and addressed at office visit 11/30/2023. If patient is to complete labs will need to fax orders to [facility] Outreach Lab with notation that patient is homebound. [facility] Telephone encounter Note* Telephone Encounter - Rosaura Suárez APRN.CNP - 12/06/2023 4:52 PM EDT Noted. [facility] Miscellaneous Notes* Telephone Encounter - Rosaura Suárez APRN.CNP - 12/06/2023 4:52 PM EDT Noted. * Telephone Encounter - Helena Quevedo RN - 12/05/2023 11:17 AM EDT Geri with [facility] calls to let provider know that patient was discharged from [facility] services today 12/05/2023. Geri reports that if patient has lab orders that provider wants her to have drawn now she can have them done through [facility] Outreach lab but order needs to say that patient is homebound. Fax for outreach lab is [phone]. Helena uQevedo RN documented in this encounterPike [facility]05-[facility]24 Telephone encounter Note * Telephone Encounter - Christina Campbell RN - 12/05/2023 12:11 PM EDT Patient has been identified by name and date of : Yes, Provider Date Time Patient phones for refill(s): Requested Prescriptions Pending Prescriptions Disp Refills pramipexole (MIRAPEX) 1.5 mg tablet 90 tablet 1 Sig: Take 1 tablet by mouth daily at bedtime. Date of last office visit in primary care: 11/30/2023 Date of next office visit in primary care: 12/28/2023 Please advise. Thank you. Christina Campbell RN. [facility] Miscellaneous Notes* Telephone Encounter - Christina Campbell RN - 12/05/2023 12:11 PM EDT Patient has been identified by name and date of : Yes, Provider Date Time Patient phones for refill(s): Requested Prescriptions Pending Prescriptions Disp Refills pramipexole (MIRAPEX) 1.5 mg tablet 90 tablet 1 Sig: Take 1 tablet by mouth daily at bedtime. Date of last office visit in primary care: 11/30/2023 Date of next office visit in primary care: 12/28/2023 Please advise. Thank you. Christina Campbell RN. documented in this encounterPike [facility]05-20-2024 Telephone encounter Note * Telephone Encounter - Helena Quevedo RN - 12/05/2023 11:17 AM EDT Geri with [facility] calls to let provider know that patient was discharged from [facility] services today 12/05/2023. Geri reports that if patient has lab orders that provider wants her to have drawn now she can have them done through [facility] Outreach lab but order needs to say that patient is homebound. Fax for outreach lab is [phone]. Helena Quevedo RN [facility] Instructions* Patient Instructions* Rosaura Suárez APRN.CNP - 11/30/2023 8:35 AM EDT [facility] PHONE: CALL OR TEXT PHYSICAL ADDRESS: [id number], [id number] documented in this encounterPike [facility] Hospital05-15-[facility]24 History of Present illness Narrative* Rosaura Suárez APRN.CNP - 11/30/2023 8:19 AM EDT SUBJECTIVE Dick Artis is a 88 year old female here today for a check up on her medical problems. Chief Complaint Patient presents with: 2 week follow up: blood pressure HPI Dick Artis is a 88 year old female. She is a well known established patient of Mady Dunn MD. She presents today for a 2 week follow up. Accompanied by family. Last visit we discussed concerns of issues with her back pain, follows with pain management with [facility] with Dr. Raymundo. Also has had issues with swelling/lymphedema. Ordered lymphedema therapy. Labs were ordered. She has HHC via [facility]. She has been having issues with her blood pressure being elevated. Better after meds now. [facility] is wondering about liquid potassium with her refill. More anxious lately. No depression that she has noticed. Medication management Sleep - This is good right now. Eating - Appetite is not great. Nausea in the am with her medications. Swelling - Better. Pain- 2 weeks ago she had an injection from her pain provider. This has helped alleviate some pain but now back to her original pain. Her medications were reviewed today and her list is now up to date. Medications Current Outpatient Medications Medication Sig baclofen 5 mg tablet Take 5 mg by mouth as needed. carvedilol (COREG) 12.5 mg tablet Take 12.5 mg by mouth two times a day with meals. spironolactone (ALDACTONE) 25 mg tablet Take 1 tablet by mouth once daily. zolpidem (AMBIEN) 5 mg tablet Take 1 tablet by mouth at bedtime as needed for up to 30 days. iron polysaccharide complex (FERREX-150) 150 mg iron capsule Take 1 capsule by mouth once daily. pantoprazole DR (PROTONIX) 40 mg tablet Take 1 tablet by mouth two times a day. tiZANidine (ZANAFLEX) 2 mg tablet Take 1 tablet by mouth every 6 hours as needed (muscle spasm). magnesium oxide (MAG-OX) 400 mg (241.3 mg magnesium) tablet Take 1 tablet by mouth once daily. furosemide (LASIX) 40 mg tablet Take 1 tablet by mouth two times a day. Cholecalciferol, Vitamin D3, 25 mcg (1,000 unit) cap Take 2 capsules by mouth once daily. arformoterol (BROVANA) 15 mcg/2 mL nebulizer solution Inhale 2 mL as instructed every 12 hours. ascorbic acid, vitamin C, 500 mg cap Take 500 mg by mouth once daily. acetaminophen (TYLENOL) 500 mg tablet Take 1,000 mg by mouth every 6 hours as needed for pain (EVERY 6 HOURS NEEDED FOR PAIN). albuterol HFA (VENTOLIN HFA) 90 mcg/actuation inhaler Inhale 2 Puffs as instructed every 4 hours asneeded for wheezing/shortness of breath. May take 2 puffs prior to exercise budesonide (PULMICORT) 0.5 mg/2 mL nebulizer solution USE 1 VIAL IN NEBULIZER EVERY 12 HOURS OVER 5-15 MINUTES clopidogrel (PLAVIX) 75 mg tablet take 1 tablet daily pramipexole (MIRAPEX) 1.5 mg tablet Take 1 tablet by mouth daily at bedtime. multivitamin with folic acid (THERA, ONE DAILY) 400 mcg Take by mouth. DULoxetine (CYMBALTA) 20 mg capsule Take 1 capsule by mouth once daily. potassium chloride 20 mEq/15 mL solution Take 15 mL by mouth two times a day. Compression Socks, Medium misc 2 Each once daily. Or size to fit. 10-20 mmHg. On in a.m., off in evening. OXYGEN, HOME THERAPY, 3 L/min by Nasal Cannula route as directed. atorvastatin (LIPITOR) 40 mg tablet take 1 tablet daily (Patient taking differently: Take 40 mg by mouth daily at bedtime.) ipratropium (ATROVENT) 0.02 % nebulizer solution Use 2.5 mL via nebulizer four times daily as needed. OVER 5-15 MINUTES FOR WHEEZING OR SHORTNESS OF BREATH ipratropium (ATROVENT) 0.02 % nebulizer solution USE 1 VIAL (2.5 ML) VIA NEBULIZER FOUR TIMES A DAYOVER 5 TO 15 MINUTES FOR WHEEZING OR SHORTNESS OF BREATH (Patient not taking: Reported on 11/16/2023) albuterol (PROVENTIL) 2.5 mg /3 mL (0.083 %) nebulizer solution Use 3 mL via nebulizer four times daily. USE 1 VIAL (3 ML) VIA NEBULIZER FOUR TIMES A DAY OVER 5 TO 15 MINUTES FOR WHEEZING AND SHORTNESS OF BREATH (Patient not taking: Reported on 11/16/2023) No current facility-administered medications for this visit. ALLERGIES Allergen Reactions Amlodipine Swelling Lower leg edema. Aspirin Unknown Lisinopril Cough Requip [Ropinirole] Other: See Comments Very anxious ACTIVE PROBLEM LIST Moderate Recurrent Major Depression ([facility]) - 11/30/2023 Type 2 Diabetes Mellitus With Hyperglycemia, Without Long-Term Current Use of Insulin ([facility]) - 10/19/2023 Osteopenia of Lumbar Spine - 05/23/2023 Chronic Bilateral Thoracic Back Pain - 04/04/2023 Lumbar Pain - 04/04/2023 Pad (Peripheral Artery Disease) ([facility]) - 11/11/2021 Carotid Artery Stenosis - 01/23/2021 Tia (Transient Ischemic Attack) - 05/26/2020 Comment: history of TIA, remote Obesity, Class I, Bmi 30-34.9 - 07/30/2018 Stage 3b Chronic Kidney Disease ([facility]) - 07/30/2018 Bifascicular Block - 10/11/2016 Herpes Zoster Without Complication - 02/28/2016 Mixed Simple and Mucopurulent Chronic Bronchitis ([facility]) - 01/10/2016 Mixed Hyperlipidemia - 01/10/2016 Essential Hypertension - 04/07/2015 Calculi, 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 Basilio @ [facility]- Cystopscopy, left retrograde pyelogram, left ureteroscopy, basked extraction of ureteral tissue Nonspecific Abnormal Finding in Stool Contents - 03/31/2012 Acute Gastritis Without Mention of Hemorrhage - 03/31/2012 Vitamin D Deficiency - 03/06/2012 Hyperlipidemia - 04/21/2011 Hypertension - 04/21/2011 Comment: 05/23/2023: Home BP Cuff Validated. Home BP: 143/56 p70 Office BP: 134/60 p69 S/P Unilateral Salpingo-Oophorectomy - 02/18/2011 S/P Wilfredo (Total Abdominal Hysterectomy) - 02/18/2011 Copd (Chronic Obstructive Pulmonary Disease) ([facility]) - 08/24/2010 Htn (Hypertension), Benign - 08/12/2009 Comment: 11/30/2023: Home BP Cuff Validated. Home BP: 136/61 P 85 Office BP: 130/50 P 85 Hypokalemia - 08/12/2009 Brachial Neuritis Or Radiculitis [...] 10/04/2016 Years since quittin.1 Smokeless tobacco: Never Tobacco comments: 10-20 year period in 30-40s when quit. Vaping Use Vaping Use: Never used Substance Use Topics Alcohol use: Not Currently Comment: very seldom Drug use: Never Review of Systems Constitutional: Negative. Respiratory: Negative. Cardiovascular: Negative. OBJECTIVE BP 136/61[Home Monitor[ Pulse 85 Wt 150 lb (68.0kg) SpO2 95% Physical Exam Vitals and nursing note reviewed. Constitutional: General: She is awake. She is not in acute distress. Appearance: Normal appearance. She is well-developed and well-groomed. She is not ill-appearing, toxic-appearing or diaphoretic. Interventions: Nasal cannula in place. HENT: Head: Normocephalic. Right Ear: External ear [...] memory normal. Judgment: Judgment normal. ASSESSMENT/PLAN: 1. HTN (hypertension), benign - ICD9: 401.1, ICD10: I10 (primary diagnosis) - Controlled - Continue current medications - Recommend home blood pressure monitoring, to bring results to next visit - Encouraged sodium restriction, DASH or Mediterranean diet - Recommend regular aerobic exercise 2. Anxiety - ICD9: 300.00, ICD10: F41.9 Restart low dose of Cymbalta. - DULOXETINE 20 MG CAPSULE,DELAYED RELEASE 3. Moderate recurrent major depression (HCC) - ICD9: 296.32, ICD10: F33.1 Depression is stable. 4. Chronic bilateral low back pain, unspecified whether sciatica present - ICD9: 724.2, 338.29, ICD10: M54.50, G89.29 Following with pain management, Cymbalta might help pain some too. 5. Lymphedema - ICD9: 457.1, ICD10: I89.0 Plans to start lymphedema therapy. 6. Iron deficiency - ICD9: 280.9, ICD10: E61.1 Iron levels stable on recent labs. 7. Hypocalcemia - ICD9: 275.41, ICD10: E83.51 Calcium levels stable on labs. 8. Stage 3b chronic kidney disease (HCC) - ICD9: 585.3, ICD10: N18.32 - eGFR: 50 Stable and much improved. - Counseled on avoiding NSAIDs, adequate hydration - Counseled on low sodium diet See scanned documents for labs done with [facility] via [facility] from 11/29/2023. Portions of this note have been entered by ancillary staff. I have reviewed and when necessary edited, so that they are an adequate record of my encounter with this patient Please note that parts of this document were created using voice recognition software and therefore may contain grammatical errors. Patient verbalizes understanding of instructions from today's visit and in agreement with treatmentplan. Questions answered. Agrees to call the office [...] as well as compliance with taking medications. Age- appropriate health preventative measures were discussed. Return in about 4 weeks (around 12/28/2023) for Follow up on chronic conditions and medications.. Rosaura Suárez APRN-CORINNA [facility] Tele[facility] * Telephone Encounter - Rosaura Suárez APRN.CNP - 11/29/2023 3:47 PM EDT Will review with her visit tomorrow. [facility] Miscellaneous Notes* Telephone Encounter - Rosaura Suárez APRN.CNP - 11/29/2023 3:47 PM EDT Will review with her visit tomorrow. * Telephone Encounter - Diann Nascimento LPN - 11/29/2023 3:38 PM EDT Copy of labs completed at [facility] are on Rosaura's desk for review. documented in [facility] Telephone encounter Note * Telephone Encounter - Dinan Nascimento LPN - 11/29/2023 3:38 PM EDT Copy of labs completed at [facility] are on Rosaura's desk for review. [facility] Telephone encounter Note* Telephone Encounter - Janel Kirkland OCCA - 11/28/2023 3:15 PM EDT TC to Denise who verbalized understanding of providers message and has no further questions at this time. CRAIG Schumacher [facility]05-13-[facility] Miscellaneous Notes* Telephone Encounter - Janel Kirkland OCCA - 11/28/2023 3:15 PM EDT TC to Denise who verbalized understanding of providers message and has no further questions at this time. CRAIG Schumacher * Telephone Encounter - Rosaura Suárez APRN.CNP - 11/28/2023 2:58 PM EDT Please return call and let her know that is okay with me. * Telephone Encounter - Perlita Cedeño, DEVANG - 11/28/2023 2:54 PM EDT Faxed lab orders to [facility], fax # [phone], per Denise request. Denise doesn't think she can get all of the labs today. Asking if Rosaura can approve a nurse visit for tomorrow, to complete labs unable to do today? Please phone Denise with reply: [phone] documented in [facility] Telephone encounter Note * Telephone Encounter - Rosaura Suárez APRN.CORINNA - 11/28/2023 2:58 PM EDT Please return call and let her know that is okay with me. [facility] Telephone encounter Note* Telephone Encounter - Perlita Cedeño, DEVANG - 11/28/2023 2:54 PM EDT Faxed lab orders to [facility], fax # [phone], per Denise request. Denise doesn't think she can get all of the labs today. Asking if Rosaura can approve a nurse visit for tomorrow, to complete labs unable to do today? Please phone Denise with reply: [phone] [facility] Tele[facility] encounter Note* Telephone Encounter - Rosaura Suárez APRN.CNP - 11/25/2023 1:22 PM EDT Noted, sounds like a plan for right now. WE will see her for follow up as scheduled next week. [facility] Miscellaneous Notes* Telephone Encounter - Rosaura Suárez APRN.CNP - 11/25/2023 1:22 PM EDT Noted, sounds like a plan for right now. WE will see her for follow up as scheduled next week. * Telephone Encounter - Betty Duckworth RN - 11/25/2023 1:02 PM EDT Called Janice SIDDIQI [facility] she is going to call the Pt later and get in touch with [facility] heart group about BP meds. Faxed labs to [facility] to draw on Tue when they see the Pt, faxed to # [phone]. Pts BP was 164/77 this morning HR 102 weight 151 lbs which she states is what it has been. Pt was toldto take the 12.5 mg Coreg BID and that Spirolactone was ordered for her. Pt states her pain is the same. She has an appointment with Pain mgmt next Tuesday. She states she was given the number of a chiropractor in [place] that does myofacial release that is covered by her insurance. Pt also fired her palliative care because they were too busy for her and has an appointment on Tuesday with [facility] palliative care. * Telephone Encounter - Rosaura Suárez APRN.CNP - 11/25/2023 12:31 PM EDT Can we see if Eemrson has had any improvement in her pain? Also can we get updated vitals (bp and heartrate and weight) and clarify if she started the coreg per the other encounter open for her (Mady Dunn MD had advised her to start this.). * Telephone Encounter - Maddison Renteria APRN.CNS - 11/24/2023 3:17 PM EDT I will check to see if Rosaura wants to see her sooner, she may benefit from being seen sooner rather than later * Telephone Encounter - Hannah Davila LPN - 11/24/2023 1:06 PM EDT Spoke with Janice SIDDIQI [facility]. Janice states that the message was basically an update but she was concerned a little about her new complaint of abdominal fullness and distension and wanted to letprovider know since pt has fluid problems in the past. She is aware patient has an appointment nextweek with Rosaura Suárez. * Telephone Encounter - Maddison Renteria APRN.CNS - 11/24/2023 12:45 PM EDT Note below. Is something needed today or is this just an update? * Telephone Encounter - Betty Duckworth RN - 11/24/2023 10:44 AM EDT Janice SIDDIQI [facility] called in and reports she was out at the Pts house today and took the Pts BP ataround 0900 am. BP 164/78 HR 109 resting after Pt had taken her BP medication. Pt had taken it thatmorning and it had been 151/something. Pt reports her systolic has been running in the 150s. [facility] nurse states the nurse that had seen the Pt the week previously had the Pts BP as 170s/something. She wasn't sure if it could be elevated due to pain and anxiety. Pt has chronic back pain and is seeing pain management and had back injection on 11/18/23 with no relief. Pt has a f/u appt with them on 12/01. She also reports the Pt has been anxious, she tod her she lays in bed and sometimes can't get asleep and will get up. I let Janice know that Pt was just ordered Ambien on 11/16/23. Pt weight was 151 lbs today, she is between 150-151 lbs. Janice reports Pt has abdominal fullness and distension, 3+ pitting edema to bilateral lower extremities. She said the Pt didn't have her compression stockings on today, but she says that she has been wearing them. Pt denies any SOB and states she has been breathing well. Pt has an appointment with Rosaura Suárez NP on 11/30/23 and will bring a log of herBClayton s and her BP cuff to be checked against ours. nurse is going to check with [facility] aboutgetting the Pt in for the Lymphedema Therapy. documented in this encounterP[facility]05-[facility] Telephone encounter Note * Telephone Encounter - Betty Duckworth RN - 11/25/2023 1:18 PM EDT Called Janice SIDDIQI [facility] she is going to call the Pt later and get in touch with [facility] heart group about BP meds. Will fax labs to [facility] to draw on Mon when they see the Pt. Pts BP was 164/77 this morning HR 102 weight 151 lbs which she states is what it has been. Pt was told to take the 12.5 mg Coreg BID and that Spirolactone was ordered for her. Pt states her pain is the same. She has an appointment with Pain mgmt next Tuesday. She states she was given the number of a chiropractor in [place] that does myofacial release that is covered by her insurance. Pt also fired her palliative care because they were too busy for her and has an appointment on Tuesday with [facility] palliative care. [facility] Miscellaneous Notes* Telephone Encounter - Betty Duckworth RN - 11/25/2023 1:18 PM EDT Called Janice SIDDIQI [facility] she is going to call the Pt later and get in touch with [facility] heart group about BP meds. Will fax labs to [facility] to draw on Tue when they see the Pt. Pts BP was 164/77 this morning HR 102 weight 151 lbs which she states is what it has been. Pt was told to take the 12.5 mg Coreg BID and that Spirolactone was ordered for her. Pt states her pain is the same. She has an appointment with Pain mgmt next Tuesday. She states she was given the number of a chiropractor in [place] that does myofacial release that is covered by her insurance. Pt also fired her palliative care because they were too busy for her and has an appointment on Tuesday with [facility] palliative care. * Telephone Encounter - Rosaura Suárez APRN.CNP - 11/25/2023 1:03 PM EDT This should be twice daily, we can also try a low dose of spironolactone and see if helpful. I senta script for that too. * Telephone Encounter - Diann Nascimento LPN - 11/25/2023 11:10 AM EDT Message left for Crystal. Spoke with patient and she states that BP and HR are still elevated. BP today 167/77 HR 102. Did ask patient to resume the carvedilol. Question if the carvedilol should be once or twice daily as noted on her last script? Does have follow up scheduled 11/30/2023 * Telephone Encounter - Mady Dunn MD - 11/23/2023 6:05 PM EDT Wonder if e losartan stopped due to kidney function had dropped in October--noted beginning of the month--but was still on admission H&P as noted below. . Was in hospital middle of October and when discharged 11/05, eGFR had improved to 48. N\o BP med when discharged--just Lasix 40 mg twice daily. She is to have lab work done this month. Noted was on carvedilol when discharged 10/11. Not sure when or why was stopped. Was on Coreg. Lasix, Losartan plus prn hydralazine according to admission H&P on November 02 but not on discharge summary (and not mention that it was stopped on the discharge summary). Does patient have carvedilol at home? If so, if BP and HR still high and no apparent reason patient not to resume it, would resume med. * Telephone Encounter - Diann Nascimento LPN - 11/21/2023 2:12 PM EDT Spoke with Aurelia and confirmed that patient is taking Lasix 40 mg twice daily. Orders for Lymphedema therapy have been sent to [facility] [employer]. Aurelia did confirm that patient is not taking losartan or any other medications for blood pressure. * Telephone Encounter - Mady Dunn MD - 11/21/2023 1:12 PM EDT Pain could be causing the higher BP and heart rate. If treating pain does not help BP and HR, or if develops symptoms from higher BP and HR, then wouldadjust meds for BP. Noted leg swelling 4+. Is Lasix helping to diurese at present dose (verify dose matches our med list dose)? Noted to start lymphedema therapy. Clarify that patient is taking losartan--looks like as twice daily then lowered to 50 then 25 then was taken off list. Any other med given to replace it? * Telephone Encounter - Janice Jessica RN - 11/21/2023 10:39 AM EDT Aurelia from [facility] calls to report that patient's blood pressure is elevated today at 170/90 with pulse of 117. Patient is asymptomatic. Patient does have severe bilateral pitting edema to bilateral lower extremities of +4. Patient's weight today is 151. Aurelia reports that patient is very painful today. Patient rates chronic back pain a 10/10 today. Patient had injections to back on Tuesday with pain management. Patient was also started on Baclofen 2.5 mg q12h prn for back pain. Aurelia is going to contact pain management regarding patient's pain. Please review and advise, Janice Jessica RN documented in [facility]05-[facility] Telephone encounter Note * Telephone Encounter - Rosaura Suárez APRN.CNP - 11/25/2023 1:03 PM EDT This should be twice daily, we can also try a low dose of spironolactone and see if helpful. I senta script for that too. [facility] Telephone encounter Note* Telephone Encounter - Betty Duckworth RN - 11/25/2023 1:02 PM EDT Called Janice SIDDIQI [facility] she is going to call the Pt later and get in touch with [facility] heart group about BP meds. Faxed labs to [facility] to draw on Mon when they see the Pt, faxed to # [phone]. Pts BP was 164/77 this morning HR 102 weight 151 lbs which she states is what it has been. Pt was toldto take the 12.5 mg Coreg BID and that Spirolactone was ordered for her. Pt states her pain is the same. She has an appointment with Pain mgmt next Tuesday. She states she was given the number of a chiropractor in [place] that does myofacial release that is covered by her insurance. Pt also fired her palliative care because they were too busy for her and has an appointment on Tuesday with [facility] palliative care. [facility] Telephone encounter Note* Telephone Encounter - Rosaura Suárez APRN.YARD CRANE OPERATOR - 11/25/2023 12:31 PM EDT Can we see if Emerson has had any improvement in her pain? Also can we get updated vitals (bp and heartrate and weight) and clarify if she started the coreg per the other encounter open for her (Mady Dunn MD had advised her to start this.). [facility] Telephone encounter Note* Telephone Encounter - Diann Nascimento LPN - 11/25/2023 11:10 AM EDT Message left for Aurelia. Spoke with patient and she states that BP and HR are still elevated. BP today 167/77 HR 102. Did ask patient to resume the carvedilol. Question if the carvedilol should be once or twice daily as noted on her last script? Does have follow up scheduled 11/30/2023 [facility] Tele[facility] Note* Telephone Encounter - Maddison Renteria APRN.CNS - 11/24/2023 3:17 PM EDT I will check to see if Rosaura wants to see her sooner, she may benefit from being seen sooner rather than later [facility] Telephone encounter Note* Telephone Encounter - Hannah Davila LPN - 11/24/2023 1:06 PM EDT Spoke with Janice SIDDIQI [facility]. Janice states that the message was basically an update but she was concerned a little about her new complaint of abdominal fullness and distension and wanted to letprovider know since pt has fluid problems in the past. She is aware patient has an appointment nextweek with Rosaura Suárez. [facility] Telephone encounter Note* Telephone Encounter - Maddison Renteria APRN.CNS - 11/24/2023 12:45 PM EDT Note below. Is something needed today or is this just an update? [facility] Telephone encounter Note* Telephone Encounter - Betty Duckworth RN - 11/24/2023 10:44 AM EDT Janice SIDDIQI [facility] called in and reports she was out at the Pts house today and took the Pts BP ataround 0900 am. BP 164/78 HR 109 resting after Pt had taken her BP medication. Pt had taken it thatmorning and it had been 151/something. Pt reports her systolic has been running in the 150s. [place] [place] the nurse that had seen the Pt the week previously had the Pts BP as 170s/something. She wasn't sure if it could be elevated due to pain and anxiety. Pt has chronic back pain and is seeing pain management and had back injection on 11/18/23 with no relief. Pt has a f/u appt with them on 12/01. She also reports the Pt has been anxious, she tod her she lays in bed and sometimes can't get asleep and will get up. I let Janice know that Pt was just ordered Ambien on 11/16/23. Pt weight was 151 lbs today, she is between 150-151 lbs. Janice reports Pt has abdominal fullness and distension, 3+ pitting edema to bilateral lower extremities. She said the Pt didn't have her compression stockings on today, but she says that she has been wearing them. Pt denies any SOB and states she has been breathing well. Pt has an appointment with Rosaura Suárez NP on 11/30/23 and will bring a log of herBP s and her BP cuff to be checked against ours. nurse is going to check with [facility] aboutgetting the Pt in for the Lymphedema Therapy. [facility] Telephone encounter Note* Telephone Encounter - Mady Dunn MD - 11/23/2023 6:05 PM EDT Wonder if e losartan stopped due to kidney function had dropped in October--noted beginning of the month--but was still on admission H&P as noted below. . Was in hospital middle of October and when discharged 11/05, eGFR had improved to 48. N\o BP med when discharged--just Lasix 40 mg twice daily. She is to have lab work done this month. Noted was on carvedilol when discharged 10/11. Not sure when or why was stopped. Was on Coreg. Lasix, Losartan plus prn hydralazine according to admission H&P on November 02 but not on discharge summary (and not mention that it was stopped on the discharge summary). Does patient have carvedilol at home? If so, if BP and HR still high and no apparent reason patient not to resume it, would resume med. [facility]05-06-2024 Telephone encounter Note* Telephone Encounter - Diann Nascimento LPN - 11/21/2023 2:12 PM EDT Spoke with Aurelia and confirmed that patient is taking Lasix 40 mg twice daily. Orders for Lymphedema therapy have been sent to [facility] [employer]. Aurelia did confirm that patient is not taking losartan or any other medications for blood pressure. [facility]05-06-2024 Telephone encounter Note* Telephone Encounter - Mady Dunn MD - 11/21/2023 1:12 PM EDT Pain could be causing the higher BP and heart rate. If treating pain does not help BP and HR, or if develops symptoms from higher BP and HR, then wouldadjust meds for BP. Noted leg swelling 4+. Is Lasix helping to diurese at present dose (verify dose matches our med list dose)? Noted to start lymphedema therapy. Clarify that patient is taking losartan--looks like as twice daily then lowered to 50 then 25 then was taken off list. Any other med given to replace it? [facility]05-06-2024 Telephone encounter Note* Telephone Encounter - Janice Jessica RN - 11/21/2023 10:39 AM EDT Aurelia from [facility] calls to report that patient's blood pressure is elevated today at 170/90 with pulse of 117. Patient is asymptomatic. Patient does have severe bilateral pitting edema to bilateral lower extremities of +4. Patient's weight today is 151. Aurelia reports that patient is very painful today. Patient rates chronic back pain a 10/10 today. Patient had injections to back on Tuesday with pain management. Patient was also started on Baclofen 2.5 mg q12h prn for back pain. Aurelia is going to contact pain management regarding patient's pain. Please review and advise, Janice Jessica RN [facility]05-03-2024 Telephone encounter Note* Telephone Encounter - Diann Nascimento LPN - 11/18/2023 12:23 PM EDT Referral/order has been faxed to [facility] and patient notified of same. [facility]05-03-2024 Miscellaneous Notes* Telephone Encounter - Diann Nascimento LPN - 11/18/2023 12:23 PM EDT Referral/order has been faxed to [facility] and patient notified of same. * Telephone Encounter - Rosaura Suárez APRN.CNP - 11/18/2023 12:07 PM EDT If agreeable we can send referral to [facility]. Please check with patient. * Telephone Encounter - Dayan Ibarra LPN - 11/18/2023 12:03 PM EDT Geri with [facility], nursing calling to let you know pt can continue to see them but they can not doLymphedema Therapy. Pt will need to go elsewhere. Please notify pt on where you would like her to go. Dayan Ibarra LPN documented [facility] Telephone encounter Note * Telephone Encounter - Rosaura Suárez APRN.CNP - 11/18/2023 12:07 PM EDT If agreeable we can send referral to [facility]. Please check with patient. [facility]05-03-2024 Telephone encounter Note* Telephone Encounter - Dayan Ibarra LPN - 11/18/2023 12:03 PM EDT Geri with [facility], nursing calling to let you know pt can continue to see them but they can not doLymphedema Therapy. Pt will need to go elsewhere. Please notify pt on where you would like her to go. Dayan Ibarra LPN [facility]05-03-2024 Telephone encounter Note* Telephone Encounter - Rosaura Suárez APRN.CNP - 11/18/2023 7:49 AM EDT Noted, I knew that was a possibility, we can wait and see what Melissa calls back with and decide from there. [facility]05-03-2024 Miscellaneous Notes* Telephone Encounter - Rosaura Suárez APRN.CORINNA - 11/18/2023 7:49 AM EDT Noted, I knew that was a possibility, we can wait and see what Melissa calls back with and decide from there. * Telephone Encounter - Giselle Adame LPN - 11/17/2023 3:44 PM EDT Melissa from [facility] Home Health calling received order for Lymph Edema therapy, they do not do those services at home, patient would have to go to [facility]. Melissa said right now half-way is in the patient home, not sure if she could go to [facility] while getting home health services. She will ask Geri her employee services manager tomorrow when she returns to the office. [facility] Telephone encounter Note * Telephone Encounter - Giselle Adame LPN - 11/17/2023 3:44 PM EDT Melissa from [facility] Home Health calling received order for Lymph Edema therapy, they do not do those services at home, patient would have to go to [facility]. Melissa said right now half-way is in the patient home, not sure if she could go to [facility] while getting home health services. She will ask Geri her employee services manager tomorrow when she returns to the office. [facility]05-01-2024 Instructions* Patient Instructions* Rosaura Suárez APRN.CNP - 11/16/2023 10:19 AM EDT Let pain management know they will be managing pain (Our office can call too). Follow up with Dr. Raymundo to discuss the injections now that antibiotic is done. Refills sent today for Ambien and potassium, continue your current medications. I will talk with therapy about the lymphedema treatments and if they can do that at home. [facility] in [facility] History of Present illness Narrative* Rosaura Suárez APRN.CNP - 11/16/2023 10:00 AM EDT SUBJECTIVE Dick Artis is a 88 year old female here today for a check up on her medical problems. Chief Complaint Patient presents with: Hospital F/U: [facility] 11/01/2023 and treated for diverticulitis HPI Dick Artis is a 88 year old female. She is an established patient of Mady Dunn MD. Here today for follow up from being seen at [facility]. She was admitted, discharged 11/06/2023. Admitted for diverticulitis, possible UTI. Also issues with her COPD, chronic respiratory failure, COPD. Now home, help with care per family and has HHC with [facility].Breathing is doing good, 2 l/m via nc during the day and 4 l at night. Swelling in legs is bad. Does not seem to be increased fluid as much any more. Palliative care was consulted. Prescribed some pain medication, took it a couple days but caused nausea.Back pain is bothersome. Sees pain management. Dr. Raymundo advised either pain management or palliative needs to manage pain medication. Sleeping okay with medication. Appetite is not the greatest. Her medications were reviewed today and her list is now up to date. Medications Current Outpatient Medications Medication Sig iron polysaccharide complex (FERREX-150) 150 mg iron capsule Take 1 capsule by mouth once daily. pantoprazole DR (PROTONIX) 40 mg tablet Take 1 tablet by mouth two times a day. tiZANidine (ZANAFLEX) 2 mg tablet Take 1 tablet by mouth every 6 hours as needed (muscle spasm). magnesium oxide (MAG-OX) 400 mg (241.3 mg magnesium) tablet Take 1 tablet by mouth once daily. furosemide (LASIX) 40 mg tablet Take 1 tablet by mouth two times a day. Cholecalciferol, Vitamin D3, 25 mcg (1,000 unit) cap Take 2 capsules by mouth once daily. arformoterol (BROVANA) 15 mcg/2 mL nebulizer solution Inhale 2 mL as instructed every 12 hours. OXYGEN, HOME THERAPY, 3 L/min by Nasal Cannula route as directed. ascorbic acid, vitamin C, 500 mg cap Take 500 mg by mouth once daily. acetaminophen (TYLENOL) 500 mg tablet Take 1,000 mg by mouth every 6 hours as needed for pain (EVERY 6 HOURS NEEDED FOR PAIN). albuterol HFA (VENTOLIN HFA) 90 mcg/actuation inhaler Inhale 2 Puffs as instructed every 4 hours asneeded for wheezing/shortness of breath. May take 2 puffs prior to exercise budesonide (PULMICORT) 0.5 mg/2 mL nebulizer solution USE 1 VIAL IN NEBULIZER EVERY 12 HOURS OVER 5-15 MINUTES atorvastatin (LIPITOR) 40 mg tablet take 1 tablet daily (Patient taking differently: Take 40 mg by mouth daily at bedtime.) clopidogrel (PLAVIX) 75 mg tablet take 1 tablet daily pramipexole (MIRAPEX) 1.5 mg tablet Take 1 tablet by mouth daily at bedtime. multivitamin with folic acid (THERA, ONE DAILY) 400 mcg Take by mouth. zolpidem (AMBIEN) 5 mg tablet Take 1 tablet by mouth at bedtime as needed for up to 30 days. potassium chloride 20 mEq TbER Take 1 tablet by mouth two times a day. Compression Socks, Medium misc 2 Each once daily. Or size to fit. 10-20 mmHg. On in a.m., off in evening. dextromethorphan-guaiFENesin (MUCINEX DM) 30-600 mg per tablet Take 2 tablets by mouth two times a day. (Patient not taking: Reported on 11/16/2023) ipratropium (ATROVENT) 0.02 % nebulizer solution Use 2.5 mL via nebulizer four times daily as needed. OVER 5-15 MINUTES FOR WHEEZING OR SHORTNESS OF BREATH ipratropium (ATROVENT) 0.02 % nebulizer solution USE 1 VIAL (2.5 ML) VIA NEBULIZER FOUR TIMES A DAYOVER 5 TO 15 MINUTES FOR WHEEZING OR SHORTNESS OF BREATH (Patient not taking: Reported on 11/16/2023) albuterol (PROVENTIL) 2.5 mg /3 mL (0.083 %) nebulizer solution Use 3 mL via nebulizer four times daily. USE 1 VIAL (3 ML) VIA NEBULIZER FOUR TIMES A DAY OVER 5 TO 15 MINUTES FOR WHEEZING AND SHORTNESS OF BREATH (Patient not taking: Reported on 11/16/2023) No current facility-administered medications for this visit. ALLERGIES Allergen Reactions Amlodipine Swelling Lower leg edema. Aspirin Unknown Lisinopril Cough Requip [Ropinirole] Other: See Comments Very anxious ACTIVE PROBLEM LIST Type 2 Diabetes Mellitus With Hyperglycemia, Without Long-Term Current Use of Insulin ([facility]) - 10/19/2023 Osteopenia of Lumbar Spine - 05/23/2023 Chronic Bilateral Thoracic Back Pain - 04/04/2023 Lumbar Pain - 04/04/2023 Pad (Peripheral Artery Disease) ([facility]) - 11/11/2021 Carotid Artery Stenosis - 01/23/2021 Tia (Transient Ischemic Attack) - 05/26/2020 Comment: history of TIA, remote Obesity, Class I, Bmi 30-34.9 - 07/30/2018 Stage 3b Chronic Kidney Disease ([facility]) - 07/30/2018 Bifascicular Block - 10/11/2016 Herpes Zoster Without Complication - 02/28/2016 Mixed Simple and Mucopurulent Chronic Bronchitis ([facility]) - 01/10/2016 Mixed Hyperlipidemia - 01/10/2016 Essential Hypertension - 04/07/2015 Calculi, 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 Basilio @ [facility]- Cystopscopy, left retrograde pyelogram, left ureteroscopy, basked extraction of ureteral tissue Nonspecific Abnormal Finding in Stool Contents - 03/31/2012 Acute Gastritis Without Mention of Hemorrhage - 03/31/2012 Vitamin D Deficiency - 03/06/2012 Hyperlipidemia - 04/21/2011 Hypertension - 04/21/2011 Comment: 05/23/2023: Home BP Cuff Validated. Home BP: 143/56 p70 Office BP: 134/60 p69 S/P Unilateral Salpingo-Oophorectomy - 02/18/2011 S/P Wilfredo (Total Abdominal Hysterectomy) - 02/18/2011 Copd (Chronic [...] 10/04/2016 Years since quittin.1 Smokeless tobacco: Never Tobacco comments: 10-20 year period in 30-40s when quit. Vaping Use Vaping Use: Never used Substance Use Topics Alcohol use: Not Currently Comment: very seldom Drug use: Never Review of Systems Respiratory: Negative. Cardiovascular: Positive for leg swelling. Negative for chest pain and palpitations. Musculoskeletal: Positive for arthralgias and back pain. OBJECTIVE BP 154/58 Pulse 96 Wt 154 lb (69.9kg) SpO2 91% Physical Exam Vitals and nursing note reviewed. Constitutional: General: She is awake. She is not in acute distress. Appearance: Normal appearance. She is well-developed and well-groomed. She is not ill-appearing, toxic-appearing or diaphoretic. Interventions: Nasal cannula in place. HENT: Head: Normocephalic. Right Ear: External ear [...] memory normal. Judgment: Judgment normal. ASSESSMENT/PLAN: 1. Diverticulitis - ICD9: 562.11, ICD10: K57.92 (primary diagnosis) Resolved, she has follow up with general surgery tomorrow. 2. Chronic bilateral low back pain, unspecified whether sciatica present - ICD9: 724.2, 338.29, ICD10: M54.50, G89.29 Discussed options for pain control, she would like to have this managed by pain management, Dr. Raymundo. 3. Lymphedema - ICD9: 457.1, ICD10: I89.0 - CONSULT TO LYMPHEDEMA THERAPY 4. Other insomnia - ICD9: 780.52, ICD10: G47.09 - ZOLPIDEM 5 MG TABLET 5. Acute on chronic heart failure with preserved ejection fraction (HCC) - ICD9: 428.23, ICD10: I50.33 - PARKING FOR HANDICAPPED - NT PRO BNP 6. Chronic hypoxic respiratory failure, on home oxygen therapy (HCC) - ICD9: 518.83, 799.02, V46.2,ICD10: J96.11, Z99.81 - PARKING FOR HANDICAPPED 7. Chronic obstructive pulmonary disease, unspecified COPD type (HCC) - ICD9: 496, ICD10: J44.9 Following with pulmonary. - PARKING FOR HANDICAPPED 8. Encounter for therapeutic drug monitoring - ICD9: V58.83, ICD10: Z51.81 - COMPLETE BLOOD COUNT AND DIFFERENTIAL - COMPREHENSIVE METABOLIC PANEL 9. Iron deficiency - ICD9: 280.9, ICD10: E61.1 - COMPLETE BLOOD COUNT AND DIFFERENTIAL - IRON AND TIBC - FERRITIN 10. Type 2 diabetes mellitus with hyperglycemia, without long-term current use of insulin (HCC) - ICD9: 250.00, 790.29, ICD10: E11.65 - LIPID PANEL, NONFASTING - HEMOGLOBIN A1C - ALBUMIN/CREATININE RATIO, URINE Portions of this note have been entered by ancillary staff. I have reviewed and when necessary edited, so that they are an adequate record of my encounter with this patient Please note that parts of this document were created using voice recognition software and therefore may contain grammatical errors. Patient verbalizes understanding of instructions from today's visit and in agreement with treatmentplan. Questions answered. Agrees to call the office [...] as well as compliance with taking medications. Age- appropriate health preventative measures were discussed. Return in about 2 weeks (around 11/30/2023) for recheck. Rosaura Suárez APRN-CORINNA documented [facility] Telephone encounter Note * Telephone Encounter - Rosaura Suárez APRN.CNP - 11/14/2023 4:49 PM EDT Okay noted that she is seeing them and they are managing her pain. [facility]04-29-2024 Miscellaneous Notes* Telephone Encounter - Rosaura Suárez APRN.CNP - 11/14/2023 4:49 PM EDT Okay noted that she is seeing them and they are managing her pain. * Telephone Encounter - Diann Nascimento LPN - 11/14/2023 4:39 PM EDT Spoke with patient and she is still following with pain management and she sees Dr. Raymundo in [facility] practice. That is who would not give her the injection last week due to the antibiotic therapy. * Telephone Encounter - Rosaura Suárez APRN.CNP - 11/14/2023 4:06 PM EDT Can we see if Emerson is still following with pain management as she was prior to her hospital stay? * Telephone Encounter - Ligia Tierney LPN - 11/14/2023 3:38 PM EDT Flaquita, a nurse with [facility] is calling to report she saw pt today. Flaquita reports pt has chronic back pain but today was complaining of left, lower back pain. Pt reported to Flaquita that the pain was a 10. Flaquita reports pt's HR 110. Pt has bilateral swelling with non-pitting edema. Pt was unable to get injection last week because she was on an atb. Pt currently takes hydrocodone and a muscle relaxer but pt reports that is not helping. Pt has an appt Weds 11/15. Flaquita wanted to let provider know. documented in this encounterP[facility]04[facility] Telephone encounter Note * Telephone Encounter - Diann Nascimento LPN - 11/14/2023 4:39 PM EDT Spoke with patient and she is still following with pain management and she sees Dr. Raymundo in [facility] practice. That is who would not give her the injection last week due to the antibiotic therapy. [facility]04-29-[facility]24 Telephone encounter Note* Telephone Encounter - Rosaura Suárez APRN.CNP - 11/14/2023 4:06 PM EDT Can we see if Emerson is still following with pain management as she was prior to her hospital stay? [facility]04-29-[facility]24 Telephone encounter Note* Telephone Encounter - Ligia Tierney LPN - 11/14/2023 3:38 PM EDT Flaquita, a nurse with [facility] is calling to report she saw pt today. Flaquita reports pt has chronic back pain but today was complaining of left, lower back pain. Pt reported to Flaquita that the pain was a 10. Flaquita reports pt's HR 110. Pt has bilateral swelling with non-pitting edema. Pt was unable to get injection last week because she was on an atb. Pt currently takes hydrocodone and a muscle relaxer but pt reports that is not helping. Pt has an appt 11/15. Flaquita wanted to let provider know. [facility]04-[facility] Telephone encounter Note* Telephone Encounter - Virgie Herbert RN - 11/14/2023 8:22 AM EDT Flaquita [facility] Nurse calling to request current lab orders for patient, ordered by AUREA Siddiqui. Lab orders reviewed with Flaquita and were faxed to [facility]. Virgie Herbert RN [facility]04-29-2024 Miscellaneous Notes* Telephone Encounter - Virgie Herbert RN - 11/14/2023 8:22 AM EDT Flaquita [facility] Nurse calling to request current lab orders for patient, ordered by AUREA Siddiqui. Lab orders reviewed with Flaquita and were faxed to [facility]. Virgie Herbert RN documented in this encounterPike [facility]04-[facility]24 History of Present illness Narrative* Alison Hi RN - 11/11/2023 11:19 AM EDT CDM Telephonic Outreach Provider Action/FYI CDM: CKD, COPD Pt reports has Appt with Pain Mgt for Back pain, leaving soon, requested a call back next week. Denies falls or injury. Contacted for: Routine Telephonic Outreach Contact made with patient: Yes Patient identified by name and date of . Discussed care with patient Are you experiencing any new or worsening symptoms you need to talk about today? Yes Based on credit assessment analyst, the following disposition is advised: No symptoms or symptoms present, not severe. Routed to: No Action Needed JAMIR Education Provided this Outreach: No Alison Hi RN November 11, 2023 11:20 AM * Alison Hi RN - 11/10/2023 9:25 AM EDT CDM Telephonic Outreach Provider Action/FYI CDM: CKD, COPD Left a message to verify symptom status, instructed to contact PCP for condition changes and needs. Contacted for: Routine Telephonic Outreach Contact made with patient: No, left message. Alison Hi RN November 10, 2023 9:25 AM documented in this encounterP[facility]04[facility] Telephone encounter Note * Telephone Encounter - Diann Nascimento LPN - 11/09/2023 9:44 AM EDT Message left with Indra christian POC. [facility]04-24-[facility] Miscellaneous Notes* Telephone Encounter - Diann Nascimento LPN - 11/09/2023 9:44 AM EDT Message left with Indra ok POC. * Telephone Encounter - Rosaura Suárez APRN.CNP - 11/08/2023 4:28 PM EDT Plan of care noted, if needed we can return call and give verbal ok for plan of care. * Telephone Encounter - Giselle Adame LPN - 11/08/2023 2:16 PM EDT Indra from [facility] Home Health calling patient had refused PT/OT, Speech only wants half-way to continue. Plan of care is 1 visit weekly for 2 weeks. Patient is taking Oxycodone 5 mg one every 6 hours as needed and stool softener 100 mg one daily while she is taking the pain medication, given from Palliative Care. Oxycodone was increased when she was in the hospital last. documented in this encounterP[facility]04[facility] Telephone encounter Note * Telephone Encounter - Rosaura Suárez APRN.CNP - 11/08/2023 4:28 PM EDT Plan of care noted, if needed we can return call and give verbal ok for plan of care. [facility] Telephone encounter Note* Telephone Encounter - Giselle Adame LPN - 11/08/2023 2:16 PM EDT Indra from [facility] Home Health calling patient had refused PT/OT, Speech only wants half-way to continue. Plan of care is 1 visit weekly for 2 weeks. Patient is taking Oxycodone 5 mg one every 6 hours as needed and stool softener 100 mg one daily while she is taking the pain medication, given from Palliative Care. Oxycodone was increased when she was in the hospital last. [facility] Telephone encounter Note* Telephone Encounter - Diann Nascimento LPN - 11/07/2023 1:21 PM EDT Detailed message left for Melissa. [facility]04-[facility]24 Miscellaneous Notes* Telephone Encounter - Diann Nascimento LPN - 11/07/2023 1:21 PM EDT Detailed message left for Melissa. * Telephone Encounter - Rosaura Suárez APRN.CNP - 11/07/2023 12:58 PM EDT Please return call and give verbal ok, thanks. * Telephone Encounter - Giselle Adame LPN - 11/07/2023 12:41 PM EDT Melissa from [facility] Home Health calling patient was discharged yesterday 11/05 from [facility], they will resume care with the patient. Asking for a delay of care verbal order for the OT please. Please advise documented in this encounterPike [facility]04-[facility]24 Telephone encounter Note * Telephone Encounter - Giselle Adame LPN - 11/07/2023 1:20 PM EDT Patient has been identified by name and date of : Patient phones for refill(s): Requested Prescriptions Pending Prescriptions Disp Refills iron polysaccharide complex (FERREX-150) 150 mg iron capsule 90 capsule Sig: Take 1 capsule by mouth once daily. pantoprazole DR (PROTONIX) 40 mg tablet 180 tablet Sig: Take 1 tablet by mouth two times a day. Date of last office visit in primary care: 10/19/2023 Date of next office visit in primary care: 11/16/2023 Patient said was given rx by [facility] and is almost out of both medications, has 4 of the Ferrex left and 5 of the Pantoprazole left. Please advise. Thank you. Giselle Adame LPN. [facility]04-[facility]24 Miscellaneous Notes* Telephone Encounter - Giselle Adame LPN - 11/07/2023 1:20 PM EDT Patient has been identified by name and date of : Patient phones for refill(s): Requested Prescriptions Pending Prescriptions Disp Refills iron polysaccharide complex (FERREX-150) 150 mg iron capsule 90 capsule Sig: Take 1 capsule by mouth once daily. pantoprazole DR (PROTONIX) 40 mg tablet 180 tablet Sig: Take 1 tablet by mouth two times a day. Date of last office visit in primary care: 10/19/2023 Date of next office visit in primary care: 11/16/2023 Patient said was given rx by [facility] and is almost out of both medications, has 4 of the Ferrex left and 5 of the Pantoprazole left. Please advise. Thank you. Giselle Adame LPN. documented in this encounterP[facility]04-[facility]-2024 Telephone encounter Note * Telephone Encounter - Rosaura Suárez APRN.CNP - 11/07/2023 12:58 PM EDT Please return call and give verbal ok, thanks. [facility]04-[facility] Telephone encounter Note* Telephone Encounter - Giselle Adame LPN - 11/07/2023 12:41 PM EDT Melissa from [facility] Home Health calling patient was discharged yesterday 11/05 from [facility], they will resume care with the patient. Asking for a delay of care verbal order for the OT please. Please advise [facility] Discharge summary Author Pema Sal [facility] November 06, 2023 11:32am Note Date/Time November 06, 2023 11: 29am [facility] Medical Records Department [address] [place] [address] Discharge Summary 11/06/23 1125 MR#: [id number] Acct: [id number] Name: DICK ARTIS Rep #:[id number] 5 : 1935 88 From: Pema Sal MD PCP: Dr. Mady Dunn MD Status:[facility] [place] Location: [place] [id number] Providers Date of Admission: 11/03/23 Date of Discharge: 11/06/23 Primary Care Physician: Dr. Mady Dunn MD Reason For Visit: DIVERTICULITIS, ? UTI, HYPOKALEMIA Diagnosis Discharge Diagnosis (1) Diverticulitis: Status: Acute Code(s): K57.92 - Diverticulitis of intestine, part unspecified, without perforation or abscess without bleeding Plan: DISCHARGE DIAGNOSES: #1. Acute Diverticulitis #2. Questionable Acute Urinary Tract Infection, UCx pending upon discharge, Lowsuspicion #3. Hypokalemia likely secondary to GI losses #4. Chronic normocytic anemia/iron deficiency anemia #5. BL Flank discomfort w/ History nephrolithiasis, noted nonobstructive calculi, low suspicion UTI, highly suspected musculoskeletal discomfort is reproducible with palpation alone #6. Chronic Kidney Disease Stage III, unclear subtype #7. HFpEF #8. Hypertension #9. Hyperlipidemia #10. 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 PAD #12. History of TIA #13. Chronic bilateral lower extremity lymphedema/edema #14. Restless leg syndrome #15. GERD #16. CODE status: Patient SRAVANI is her daughter who is present and living will is currently in place. DNR-CCA, no intubation status. Medications at Discharge Home Medications atorvastatin 40 mg tablet 40 mg PO QHS cholesterol 02/22/16 clopidogrel 75 mg tablet 75 mg PO DAILY BLOOD THINNER 02/22/16 multivitamin with folic acid 400 mcg tablet 1 tab PO DAILY supplement 02/22/16 albuterol sulfate 90 mcg/actuation aerosol inhaler 2 puff inhalation BID PRN shortness of breath or wheezing 03/16/18 cholecalciferol (vitamin D3) 25 mcg (1,000 unit) tablet 2,500 unit PO DAILY SUPPLEMENT 10/09/18 albuterol sulfate 2.5 mg/3 mL (0.083 %) solution for nebulization 2.5 mg inhalation Q4H PRN shortness of breath or wheezing 05/28/22 duloxetine 30 mg capsule,delayed release 30 mg PO BID pain 08/17/23 pramipexole 1.5 mg tablet 1.5 mg PO QHS restless leg syndrome 08/18/23 budesonide 0.5 mg/2 mL suspension for nebulization 0.25 mg inhalation BID breathing 30 days #0 mL 09/09/23 dextromethorphan-guaifenesin 30 mg-600 mg tablet extended uvwoutz12 hr (Mucinex DM) 2 tab PO BID cough 7 days #0 tabs 09/09/23 ascorbic acid (vitamin C) 500 mg tablet 500 mg PO 1000 #0 tabs 10/12/23 furosemide 40 mg tablet 40 mg PO BIDCM FLUID RETENTION 30 days #60 tabs 10/12/23 pantoprazole 40 mg tablet,delayed release 40 mg PO BID 30 days #60 tabs 10/12/23 polysaccharide iron complex 150 mg iron capsule (Ferrex) 150 mg PO DAILY 30 days#30 caps 10/12/23 potassium chloride 20 mEq tablet,extended release(part/cryst) 20 meq PO BIDCM 30days #60 tabs 10/12/23 amoxicillin 500 mg-potassium clavulanate 125 mg tablet (Augmentin) 1 tab PO BID Renally dosed for Acute Diverticulitis 12 days #24 tabs 11/05/23 oxycodone 5 mg tablet 5 mg PO Q6H PRN PRN Pain Score 4-10 5 days #20 tabs 11/05/23 Arthritis Pain Compound 3 click topical BID 5 days ##0 11/06/23 Hospital Course Operations None Procedures EKG Summary of Care Provided Minutes Spent on Discharge: 35 Hospital Course: The patient is an 88 y/o F w/ PMHx: CKD stage III unclear subtype, HTN, HLD, HFpEF, COPD w/ Chronic Hypoxic Respiratory Failure (2-3L NC), Hx TIA, Chronic BLLE edema, RLS, PAD, recent discharge from TCU following admission for respiratory failure secondary to post-COVID, Acute HFpEF who re-presented to the [facility] ED on 11/03/23 with history of persistent bilateral flank discomfort, abdominal cramping diffusely as well as diarrhea in addition to ongoing bilateral lower extremity swelling and shortness of breath more pronounced on day of presentation with flank pain described as aching and worsened by activityrated 8-10 out of 10 in severity with recent discharge from transitional care 10/15/2023 with reported urinary urgency which is her baseline with no recent weight gain with PCP prescription for tizanidine for concern of muscle spasms with doses the evening prior as well as at 2 AM and 4 AM without relief recentlytaken off of oxycodone from palliative care secondary to nausea with history of previous kidney stones but given ongoing discomfort prompted ED evaluation. Admitted to LA, maintained on judicious hydration, monitor I&Os, treating with rocephin and flagyl regimen as initiated in the ED, anti-emetics, pain regimen PRN. 11/05/2023 given toleration of clear liquids transitioned to full liquids for lunch and eventually through the day transition to cardiac diet. 11/06/2023 patient denies any abdominal pain nor any nausea or emesis and tolerating complete transition of diet. UA upon presentation minimally concerning for UTI; however, to be cautious UCx sent and pending at discharge. Admission K+ 2.6, magnesium level 2.1, supplementation given, 11/06/2023 potassium 3.8, stable. Admission hemoglobin 9.3, MCV 97.3, baseline hemoglobin primarily more recently 8-9, continue iron supplementation. 11/05/23 CBC w/ Hgb 8.5, MCV 104--> 11/06/2023hemoglobin 8.3, MCV 104.9. Admission BUN/Cr 62/1.25, baseline renal function primarily 1.1-1.4, 11/05/23 BUN/Cr 34/1.24, GFR 44-->11/06/2023 BUN/creatinine 27/1.15, GFR 48. Patient with noted BL flank and lateral musculoskeletal pain that was completely reproducible therefore low suspicion for other etiology and no concerning findings in that region on CT abdomen and pelvis. Initially patient had been initiated on lidocaine patches with PT and OT assessment. 11/06/2023 transition to arthritic compounded cream to those regions with plan todischarge to home with this short amount of 5 days approximately from the hospital. At discharge patient transitioned to oral Augmentin in addition to 5- day course of oxycodone in addition to compounded pain arthritic cream with follow- up with PCP early and also General surgery outpatient given history of recurrent diverticulitis. PT and OT assessments with recommendation for discharge to home. Weight / BMI Weight Weight: 156 lb 1.396 oz Body Mass Index (BMI) 28.5 ABG / Lab / Microbiology Data 11/06/23 05:19 11/06/23 05:19 Laboratory: Laboratory Results - last 24 hr 11/06/23 05:19: WBC 4.5, RBC 2.66 L, Hgb 8.3 L, Hct 27.9 L, MCV 104.9 H, MCH 31.2, MCHC 29.7 L, RDW Std Deviation 68.8 H, RDW Coeff of Ha 17.8 H, Plt Count 166, MPV 10.6, Immature Gran % (Auto) 0.900, Neut % (Auto) 50.3, Lymph % (Auto) 26.1, [place] % (Auto) 16.3 H, Eos % (Auto) 6.0 H, Baso % (Auto) 0.4, Absolute Neuts (auto) 2.3, Absolute Lymphs (auto) 1.17, Nucleated RBC % 0, Differential Comment SCANNED, Anisocytosis 2+, Microcytosis 1+, Macrocytosis 1+, Sodium 140, Potassium 3.8, Chloride 105, Carbon Dioxide 31.0, Anion Gap 4 L, BUN 27 H, Creatinine 1.15 H, Estim Creat Clear Calc 32.36, Est GFR (MDRD) Af Amer 58 L, Est GFR (MDRD) Non-Af 48 L, BUN/Creatinine Ratio 23.5 H, Glucose 103, Calcium 8.1 L, Total Bilirubin 0.20, AST 24, ALT 15, Alkaline Phosphatase 73, Total Protein 5.6 L, Albumin 2.4 L, Globulin 3.2, Albumin/Globulin Ratio 0.8 L D/C Instructions Discharge Diet: Low fat / Low cholesterol May resume sexual activity in: No Restrictions Weight Bearing Status: Weight bearing as tolerated Call your doctor if you observe: Shortness of breath, Chest pain, Increased palpitations (irregular heartbeat), Calf discomfort and Uncontrolled pain Meaningful Use Info Meaningful Use Meaningful Use Diagnoses (Choose all that apply): None applicable Ischemic Stroke Statin Dosing Therapy Reference: STATIN DOSE THERAPY REFERENCE: * Patients > 75 years receive moderate or high dose statin therapy. * Patients 75 years or YOUNGER should receive HIGH intensity statin dose unless contraindicated. You will be required to document reason for non-treatment if statin daily dose does not meet guidelines. HIGH DOSE STATIN THERAPY DAILY Atorvastatin > than or = to 40 mg Rosuvastatin > than or = to 20 mg Amlodipine + Atorvastatin > than or = to 2.5/40 mg Ezetimibe + Simvastatin 10/80 mg Simvastatin 80mg Discharge Plan Admission Admit Date/Time: 11/03/23 15:32 Primary Reason for Your Visit: Acute Diverticulitis, ? UTI, Hypokalemia Attending Provider: Pema Sal Primary Care Provider: Mady Dunn Consulting Providers: Pema Sal; Herrera Bauman Instructions Patient Instructions: Diverticulitis Dc Additional Instructions / Restrictions: DISCHARGE DIAGNOSES/INFORMATION/DATA: #1. Acute Diverticulitis: --CT abdomen and pelvis with mild degree of sigmoid diverticulitis, stable appearance of the right kidney with atrophy and mass in the upper pole, scattered left nonobstructive intrarenal calculi. --Initially allowed clears only and diet slow transitioned. --May use pain medication sparingly at discharge but if pain worsens recommend re-evaluation with your primary care or in the emergency room. --Continue oral antibiotic augmentin which has been renally dosed based on your creatinine clearance to 500 mg twice daily for 12 additional days to complete treatment. #2. Questionable Acute Urinary Tract Infection, Low suspicion: --UA upon ED evaluation minimally remarkable with low suspicion for urinary tract infection. Urine culture is pending at discharge. #3. Bilateral flank musculoskeletal discomfort: --Again low suspicion for UTI as being the etiology and given reproducible pain with palpation along the muscles high suspicion that the etiology is purely muscle discomfort. Upon discharge you have been given a compounded cream that is for arthritis from the hospital. Please use this on the sore regions on yourback twice daily. This should last for approximately 5 days. If this does seemto continue to improve the discomfort then please discuss a refill with your primary care physician which should be sent to the [facility] outpatient pharmacy as this is a compounded agent and likely will not be able italia obtained elsewhere. --Your renal function makes taking anti-inflammatory agents, i.e. ibuprofen and naproxen less desirable as this may worsen your renal function. You may take OTCtylenol as recommended on the bottle for discomfort as well. Discharge Orders/Prescriptions Prescriptions: New amoxicillin-pot clavulanate [Augmentin] 500-125 mg tablet 1 tab PO BID 12 Days Qty: 24 0RF oxycodone 5 mg Tablet 5 mg PO Q6H PRN PRN (Reason: Pain Score 4-10) 5 Days Qty: 20 0RF Arthritis Pain Compound 3 click topical BID 5 Days Qty: 0 0RF Rx Instructions: Please use the compounded cream ordered in the hospital. If this assists greatly you may ask PCP at follow-up to request refill from [facility] where it is compounded. Continued cholecalciferol (vitamin D3) 1,000 unit tablet 2,500 unit PO DAILY albuterol sulfate 2.5 mg /3 mL (0.083 %) solution for nebulization 2.5 mg inhalation Q4H PRN (Reason: shortness of breath or wheezing) duloxetine 30 mg capsule,delayed release(DR/EC) 30 mg PO BID atorvastatin 40 MG tablet 40 mg PO QHS clopidogrel 75 MG tablet 75 mg PO DAILY multivitamin with folic acid 1 TABLET tablet 1 tab PO DAILY albuterol sulfate 90 mcg/actuation HFA aerosol inhaler 2 puff INHALATION BID PRN (Reason: shortness of breath or wheezing) Hold Instructions: Order Changed pramipexole 1.5 mg tablet 1.5 mg PO QHS Mucinex DM 30-600 mg Tablet Extended Release 12 Hr 2 tab PO BID 7 Days Qty: 0 0RF budesonide 0.5 mg/2 mL suspension for nebulization 0.25 mg inhalation BID 30 Days Qty: 0 0RF polysaccharide iron complex [Ferrex 150] 150 mg iron Capsule 150 mg PO DAILY 30 Days Qty: 30 0RF potassium chloride 20 mEq Tablet,Er Particles/Crystals 20 meq PO BIDCM 30 Days Qty: 60 0RF ascorbic acid (vitamin C) 500 mg Tablet 500 mg PO 1000 Qty: 0 0RF pantoprazole 40 mg Tablet,Delayed Release (Dr/Ec) 40 mg PO BID 30 Days Qty: 60 0RF furosemide 40 mg tablet 40 mg PO BIDCM 30 Days Qty: 60 3RF Referrals / Follow Up: Mady Dunn MD [Primary Care Provider] - (Please follow-up within 3-5 daysto review admission.) Beatriz Price MD [Med Staff - Active Staff] - (Given recurrent bouts of Diverticulitis, please call and establish with general surgery. First open visit.) Disposition Disposition (needs filled in before D/C Order can be placed): Home Health Service Charges/Coding Visit Charges Inpatient E&M: 88333 Disch Hosp >30min 11/06/23 1132 <Electronically signed by Pema Sal MD> Cosigner Signature (if applicable): CC: Dr. Pema Sal MD; Dr. Mady Dunn MD~ Signed [facility] Work Phone: 1(881) 340-955904-21-[address] [facility] November 06, 2023 11:31am Note Date/Time November 06, 2023 11: 25am [facility] Medical Records Department [address] [place] [id number] Instructions for Home/Discharge Instructions 11/06/23 1124 MR#: [id number] Acct: [id number] Name: DICK ARTIS Rep #:[id number] : 1935 88 From: Pema Sal MD PCP: Dr. Mady Dunn MD Status:AD M IN Discharge Instructions Diet Discharge Diet: Low fat / Low cholesterol Activity Discharge Activity: - (Encourage regular movement and stretching to assist with muscle strain of the flank and back.) May resume sexual activity in: No Restrictions Weight Bearing Status: Weight bearing as tolerated Dressing / Incision Call your doctor if you observe: Shortness of breath, Chest pain, Increased palpitations (irregular heartbeat), Calf discomfort and Uncontrolled pain Follow Up Care Test Results: Test results from this visit will be discussed in further detail at your follow- up appointment, if applicable. Discharge Plan Admission Admit Date/Time: 11/03/23 15:32 Primary Reason for Your Visit: Acute Diverticulitis, ? UTI, Hypokalemia Attending Provider: Pema Sal Primary Care Provider: Mady Dunn Consulting Providers: Pema Sal; Herrera Bauman Instructions Patient Instructions: Diverticulitis Dc Additional Instructions / Restrictions: DISCHARGE DIAGNOSES/INFORMATION/DATA: #1. Acute Diverticulitis: --CT abdomen and pelvis with mild degree of sigmoid diverticulitis, stable appearance of the right kidney with atrophy and mass in the upper pole, scattered left nonobstructive intrarenal calculi. --Initially allowed clears only and diet slow transitioned. --May use pain medication sparingly at discharge but if pain worsens recommend re-evaluation with your primary care or in the emergency room. --Continue oral antibiotic augmentin which has been renally dosed based on your creatinine clearance to 500 mg twice daily for 12 additional days to complete treatment. #2. Questionable Acute Urinary Tract Infection, Low suspicion: --UA upon ED evaluation minimally remarkable with low suspicion for urinary tract infection. Urine culture is pending at discharge. #3. Bilateral flank musculoskeletal discomfort: --Again low suspicion for UTI as being the etiology and given reproducible pain with palpation along the muscles high suspicion that the etiology is purely muscle discomfort. Upon discharge you have been given a compounded cream that is for arthritis from the hospital. Please use this on the sore regions on yourback twice daily. This should last for approximately 5 days. If this does seemto continue to improve the discomfort then please discuss a refill with your primary care physician which should be sent to the [facility] outpatient pharmacy as this is a compounded agent and likely will not be able italia obtained elsewhere. --Your renal function makes taking anti-inflammatory agents, i.e. ibuprofen and naproxen less desirable as this may worsen your renal function. You may take OTCtylenol as recommended on the bottle for discomfort as well. Discharge Orders/Prescriptions Prescriptions: New amoxicillin-pot clavulanate [Augmentin] 500-125 mg tablet 1 tab PO BID 12 Days Qty: 24 0RF oxycodone 5 mg Tablet 5 mg PO Q6H PRN PRN (Reason: Pain Score 4-10) 5 Days Qty: 20 0RF Arthritis Pain Compound 3 click topical BID 5 Days Qty: 0 0RF Rx Instructions: Please use the compounded cream ordered in the hospital. If this assists greatly you may ask PCP at follow-up to request refill from [facility] where it is compounded. Continued cholecalciferol (vitamin D3) 1,000 unit tablet 2,500 unit PO DAILY albuterol sulfate 2.5 mg /3 mL (0.083 %) solution for nebulization 2.5 mg inhalation Q4H PRN (Reason: shortness of breath or wheezing) duloxetine 30 mg capsule,delayed release(DR/EC) 30 mg PO BID atorvastatin 40 MG tablet 40 mg PO QHS clopidogrel 75 MG tablet 75 mg PO DAILY multivitamin with folic acid 1 TABLET tablet 1 tab PO DAILY albuterol sulfate 90 mcg/actuation HFA aerosol inhaler 2 puff INHALATION BID PRN (Reason: shortness of breath or wheezing) Hold Instructions: Order Changed pramipexole 1.5 mg tablet 1.5 mg PO QHS Mucinex DM 30-600 mg Tablet Extended Release 12 Hr 2 tab PO BID 7 Days Qty: 0 0RF budesonide 0.5 mg/2 mL suspension for nebulization 0.25 mg inhalation BID 30 Days Qty: 0 0RF polysaccharide iron complex [Ferrex 150] 150 mg iron Capsule 150 mg PO DAILY 30 Days Qty: 30 0RF potassium chloride 20 mEq Tablet,Er Particles/Crystals 20 meq PO BIDCM 30 Days Qty: 60 0RF ascorbic acid (vitamin C) 500 mg Tablet 500 mg PO 1000 Qty: 0 0RF pantoprazole 40 mg Tablet,Delayed Release (Dr/Ec) 40 mg PO BID 30 Days Qty: 60 0RF furosemide 40 mg tablet 40 mg PO BIDCM 30 Days Qty: 60 3RF Referrals / Follow Up: Mady Dunn MD [Primary Care Provider] - (Please follow-up within 3-5 daysto review admission.) Disposition Disposition (needs filled in before D/C Order can be placed): Home Health Service 11/06/23 1125<Electronically signed by Pema Sal MD>Pema Sal MD CC: Dr. Pema Sal MD; Dr. Herrera Bauman DO; Dr. Mady Dunn MD ~ Signed ADDENDUM by Dr. Pema Sal MD on 04/21/24 at 1130 ADDITIONAL DISCHARGE FOLLOW-UP: General Surgery Beatriz Price MD Office number: [phone] Given recurrent bouts of Diverticulitis, please call and establish with general surgery. First open visit. 11/06/23 1130<Electronically signed by Pema Sal MD>Pema Sal MD cc: Dr. Pema Sal MD; Dr. Herrera Bauman DO; Dr. Mady Dunn MD ~* Signed [facility] Work Phone: 1(232) 424-830904-21-2024 Progress note Author Pema Sal [facility] November 06, 2023 11:18am Note Date/Time November 06, 2023 7:1 2am [facility] Medical Records Department [address] [facility] [place] [address] Progress Note - Hospitalist 11/06/23711 MR#: [id number] Acct: [id number] Name: DICK ARTIS Rep #:[id number] : 1935 88 From: Pema Sal MD PCP: Dr. Mady Dunn MD Status:AD M IN Location: [place] [address] Reason for Visit Reason for Visit: Diagnoses Diverticulitis of intestine, part unspecified, without perforation or abscess without bleeding (11/03/23) Subjective Subjective Patient with no acute events overnight per self or per nursing report. Patient did well with physical and Occupational Therapy however she does report still when she is getting up discomfort to bilateral flanks which again is reproducible with palpation. Discussed options and at this time she is amenableto placement of topical pain compounded regimen. Discussed plan of care to place this and see how she does getting up and moving but at this time she wouldbe appropriate to discharge to home as she is tolerating a diet and could be transition also to oral antibiotics for diverticulitis. She denies any ongoing abdominal pain, diarrhea, nausea or emesis. Patient denies fevers, chills, chest pain or dyspnea. Objective Data Objective Data Vital Signs: Vital Signs Temp Pulse Resp BP Pulse Ox O2 Del Method O2 Flow Rate 98.1 F 82 18 130/69 H 95 Nasal Cannula 4 11/06/23 04:31 11/06/23 04:31 11/06/23 04:31 11/06/23 04:31 11/06/23 04:31 11/06/23 04:31 11/06/23 04:31 Oxygen Flow Rate (L/min) 4 Oxygen Delivery Method Nasal Cannula Weight: 156 lb 1.396 oz Body Mass Index (BMI) 28.5 Intake & Output: Intake and Output for Last 24 Hours 11/04/23 11/05/23 11/06/23 23:59 23:59 23:59 Intake Total 1370 / 1620 1870 / 1870 100 / 100 Output Total 850 / 850 Balance 520 / 770 1870 / 1870 100 / 100 Lab / Micro Data 11/06/23 05:19 11/06/23 05:19 Labs: Laboratory Results - last 24 hr 11/05/23 07:30: WBC 4.2 L, RBC 2.73 L, Hgb 8.5 L, Hct 28.4 L, MCV 104.0 H, MCH 31.1, MCHC 29.9 L, RDW Std Deviation 68.4 H, RDW Coeff of Ha 17.9 H, Plt Count 168, MPV 10.1, Immature Gran % (Auto) 0.500, Neut % (Auto) 53.9, Lymph % (Auto) 23.9, [place] % (Auto) 14.3 H, Eos % (Auto) 6.9 H, Baso % (Auto) 0.5, Absolute Neuts (auto) 2.3, Absolute Lymphs (auto) 1.00, Nucleated RBC % 0, Differential Comment SCANNED, Anisocytosis 2+, Microcytosis 1+, Macrocytosis 1+, Sodium 140, Potassium 3.9, Chloride 105, Carbon Dioxide 33.0 H, Anion Gap 2 L, BUN 34 H, Creatinine 1.24 H, Estim Creat Clear Calc 29.94, Est GFR (MDRD) Af Amer 53 L, Est GFR (MDRD) Non-Af 44 L, BUN/Creatinine Ratio 27.4 H, Glucose 99, Calcium 8.2L, Total Bilirubin 0.30, AST 20, ALT 15, Alkaline Phosphatase 73, Total Protein 5.9 L, Albumin 2.7 L, Globulin 3.2, Albumin/Globulin Ratio 0.8 L 11/06/23 05:19: WBC 4.5, RBC 2.66 L, Hgb 8.3 L, Hct 27.9 L, MCV 104.9 H, MCH 31.2, MCHC 29.7 L, RDW Std Deviation 68.8 H, RDW Coeff of Ha 17.8 H, Plt Count 166, MPV 10.6, Immature Gran % (Auto) 0.900, Neut % (Auto) 50.3, Lymph % (Auto) 26.1, [place] % (Auto) 16.3 H, Eos % (Auto) 6.0 H, Baso % (Auto) 0.4, Absolute Neuts (auto) 2.3, Absolute Lymphs (auto) 1.17, Nucleated RBC % 0, Sodium 140, Potassium 3.8, Chloride 105, Carbon Dioxide 31.0, Anion Gap 4 L, BUN 27 H, Creatinine 1.15 H, Estim Creat Clear Calc 32.36, Est GFR (MDRD) Af Amer 58 L, Est GFR (MDRD) Non-Af 48 L, BUN/Creatinine Ratio 23.5 H, Glucose 103, Calcium 8.1 L, Total Bilirubin 0.20, AST 24, ALT 15, Alkaline Phosphatase 73, Total Protein 5.6 L, Albumin 2.4 L, Globulin 3.2, Albumin/Globulin Ratio 0.8 L Physical Exam Narrative Physical Examination: General: Awake, alert, oriented x 3 and cooperative, seated upright in the MS bed, just finished breakfast but did not eat much and she notes is because the breakfast did not taste very good and the biscuit was dry but denies any abdominal pain or nausea or emesis. Skin: Normal color, normal turgor, no icterus, no cyanosis except for notable bilateral lower extremity venous stasis skin changes, occasional abrasion. HEENT: AT/NC, EOMI, PERRLA, MMM. Lungs: Diminished, greater bases, improved effort, no rales, ronchi or wheezing. Heart: Regular rate and rhythm; no gallop, rub audible. Abdomen: Soft, overweight, nontender to palpation, no rebound or guarding, no marked distention, less tympanitic, normalizing bowel sounds. Extremities: No cyanosis, no clubbing, chronic edema mildly improved with compression. Neurological: Patient awake, alert, oriented as noted, cognitive function intact; pupils equally reactive to light and accommodation, cranial nerves grossly normal, moving all 4 extremities, no focal deficits, strength improved, moderately globally decreased. Psychiatric: Affect appears more interactive, normal, no acute evidence of depressive or anxiety feelings. 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-3L NC), Hx TIA, Chronic BLLE edema, RLS, PAD, recent discharge from TCU following admission for respiratory failure secondary to post-COVID, Acute HFpEF who now re-presents to the [facility] ED on 11/03/23 with history of persistent bilateral flank discomfort, abdominal cramping diffusely as well as diarrhea in addition to ongoing bilateral lower extremity swelling and shortness of breath more pronounced on day of presentation with flank pain described as aching and worsened by activityrated 8-10 out of 10 in severity with recent discharge from transitional care 10/15/2023 with reported urinary urgency which is her baseline with no recent weight gain with PCP prescription for tizanidine for concern of muscle spasms with doses the evening prior as well as at 2 AM and 4 AM without relief recentlytaken off of oxycodone from palliative care secondary to nausea with history of previous kidney stones but given ongoing discomfort prompted ED evaluation. #1. Acute Diverticulitis: Admitted to LA, maintained on judicious hydration, monitor I&Os, treating with rocephin and flagyl regimen as initiated in the ED, anti- emetics, pain regimen PRN. 11/05/2023 given toleration of clear liquids transitioned to full liquids for lunch and eventually through the day transitionto cardiac diet. 11/06/2023 patient denies any abdominal pain nor any nausea or emesis and tolerating complete transition of diet. PT/OT/CM consulted and currently plan for discharge to home however attempting to assist with bilateralflank musculoskeletal discomfort. Trialing compounded arthritic cream and once assess if this helps we will plan discharge to home on oral Augmentin with follow-up with general surgery as patient has had several bouts of diverticulitis. #2. Questionable Acute Urinary Tract Infection, UCx pending upon discharge, Lowsuspicion: UA upon ED evaluation minimally remarkable, pending UCx, continued given #1 on IV Rocephin. Pending sensitivities and speciation. #3. Hypokalemia: Admission K+ 2.6, magnesium level 2.1, supplementation given, 11/06/2023 potassium 3.8, stable. #4. Chronic normocytic anemia/iron deficiency anemia: Admission hemoglobin 9.3,MCV 97.3, baseline hemoglobin primarily more recently 8-9, continue iron supplementation. 11/05/23 CBC w/ Hgb 8.5, MCV 104--> 11/06/2023 hemoglobin 8.3, MCV 104.9. #5. BL Flank discomfort w/ History nephrolithiasis, noted nonobstructive calculi, low suspicion UTI, highly suspected musculoskeletal discomfort is reproducible with palpation alone: CT abdomen and pelvis with noted nephrolithiasis but not marked appearing and no evidence of any obstructive process, again patient flank discomfort reproducible and more consistent with musculoskeletal etiology. Had been initiated on lidocaine patches, offloading, PT/OT but given ongoing 11/06/2023 despite being somewhat improved we will trial compounded arthritic cream and if this seems to help would plan discharge to home with his agent. #6. Chronic Kidney Disease Stage III, unclear subtype: Admission BUN/Cr 62/1.25, baseline renal function primarily 1.1-1.4, 11/05/23 BUN/Cr 34/1.24, GFR 44-->11/06/2023 BUN/creatinine 27/1.15, GFR 48. #7. HFpEF: 09/04/2023 echocardiogram with normal LV, LV systolic function normal, EF 70%, PASP 30 mmHg. Judiciously hydrating given history, will continuepatient Plavix, statin, Coreg, losartan, Lasix home regimen. #8. Hypertension: Continue home regimen including Coreg, Lasix, losartan, PRN hydralazine. #9. Hyperlipidemia: We will continue patient home statin therapy. #10. 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 #11. PAD: We will continue patient home Plavix, statin, hypertensive regimen asnoted. #12. History of TIA: We will continue patient Plavix, statin, hypertensive regimen as noted. #13. Chronic bilateral lower extremity lymphedema/edema: Will place neck Diana wraps. #14. Restless leg syndrome: Will continue patient on pramipexole regimen. #15. GERD: We will continue patient on PPI. #16. DVT prophylaxis: Heparin. #17. CODE status: Patient SRAVANI is her daughter who is present and living will is currently in place. DNR-CCA, no intubation status. Charges/Coding Visit Charges Inpatient E&M: 74329 Subs Hosp L2 11/06/23 1118 <Electronically signed by Pema Sal MD> Cosigner Signature (if applicable): CC: ~ Signed [facility] Work Phone: [phone]) 230-978704-20-[address] [facility] November 05, 2023 11:40am Note Date/Time November 05, 2023 7:3 4am [facility] Medical Records Department [address] [place] [address] Progress Note - Hospitalist 11/05/23729 MR#: [id number] Acct: [id number] Name: DICK ARTIS Rep #:[id number] : 1935 88 From: Pema Sal MD PCP: Dr. Mady Dunn MD Status:AD M IN Location: [place] [address]- Reason for Visit Reason for Visit: Diagnoses Diverticulitis of intestine, part unspecified, without perforation or abscess without bleeding (11/03/23) Subjective Subjective Patient with no acute events overnight per self and per nursing report. She notes that she has tolerated clears and her abdominal pain has improved however she still has some mild discomfort rated 2-3 out of 10 in severity more crampingin nature. She denies any marked diarrhea. Patient is amenable to transitioning to full liquids and potentially cardiac diet if improving and tolerating. Patient understands need to continue PT and OT assessments to assure that she is appropriate for discharge to home versus return to skilled. If she is too weak she is amenable to return to skilled short-term. Patient denies fevers, chills, nausea, emesis, abdominal pain, chest pain or dyspnea. Objective Data Objective Data Vital Signs: Vital Signs Temp Pulse Resp BP Pulse Ox O2 Del Method O2 Flow Rate 97.8 F 70 18 127/47 H 97 Nasal Cannula 4 11/05/23 03:00 11/05/23 03:00 11/05/23 03:00 11/05/23 03:00 11/05/23 03:00 11/05/23 03:00 11/05/23 03:00 Oxygen Flow Rate (L/min) 4 Oxygen Delivery Method Nasal Cannula Weight: 155 lb 4.8 oz Body Mass Index (BMI) 28.4 Intake & Output: Intake and Output for Last 24 Hours 11/03/23 11/04/23 11/05/23 23:59 23:59 23:59 Intake Total 650 / 650 1370 / 1620 450 / 450 Output Total 850 / 850 Balance 650 / 650 520 / 770 450 / 450 Lab / Micro Data 11/05/23 07:30 11/05/23 07:30 Labs: Laboratory Results - last 24 hr 11/04/23 05:37: Anisocytosis RARE Physical Exam Narrative Physical Examination: General: Awake, alert, oriented x 3 and cooperative, seated upright in the MS bed, fatigued, notes pain improved but still present 2-3 out of 10 in severity. Skin: Normal color, normal turgor, no icterus, no cyanosis except for notable bilateral lower extremity venous stasis skin changes, occasional abrasion. HEENT: AT/NC, EOMI, PERRLA, MMM. Lungs: Diminished, greater bases, improved effort, no rales, ronchi or wheezing. Heart: Regular rate and rhythm; no gallop, rub audible. Abdomen: Soft, overweight, still some mild generalized abdominal discomfort and more pronounced left lower quadrant but less than then day prior, still mildly distended and tympanitic but less than previous, more normalized BS. Extremities: No cyanosis, no clubbing, chronic edema still present but mildly improved with compression. Neurological: Patient awake, alert, oriented as noted, cognitive function intact; pupils equally reactive to light and accommodation, cranial nerves grossly normal, moving all 4 extremities, no focal deficits, strength improved, moderately to severely global decreased. Psychiatric: Affect appears more interactive, less fatigued, no acute evidence of depressive or anxiety feelings. 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-3L NC), Hx TIA, Chronic BLLE edema, RLS, PAD, recent discharge from TCU following admission for respiratory failure secondary to post-COVID, Acute HFpEF who now re-presents to the [facility] ED on 11/03/23 with history of persistent bilateral flank discomfort, abdominal cramping diffusely as well as diarrhea in addition to ongoing bilateral lower extremity swelling and shortness of breath more pronounced on day of presentation with flank pain described as aching and worsened by activity rated 8-10 out of 10 in severity with recent discharge from transitional care 10/15/2023 with reported urinary urgency which is her baseline with no recent weight gain with PCP prescription for tizanidine for concern of muscle spasms with doses the evening prior as well as at 2 AM and 4 AM without relief recentlytaken off of oxycodone from palliative care secondary to nausea with history of previous kidney stones but given ongoing discomfort prompted ED evaluation. #1. Acute Diverticulitis: Admitted to LA, maintained on judicious hydration, monitor I&Os, treating with rocephin and flagyl regimen as initiated in the ED, anti- emetics, pain regimen PRN. Given toleration of clear liquids will transition to full liquids and if this is tolerated well for breakfast we will transition to cardiac diet for lunch. Once tolerating diet may consider discharge. PT/OT/CM consulted as may require SNF return instead of home. #2. Questionable Acute Urinary Tract Infection: UA upon ED evaluation minimallyremarkable, pending UCx, monitor I/Os, continue IV Rocephin w/ transition as able pending sensitivities and speciation. #3. Hypokalemia: Admission K+ 2.6, magnesium level 2.1, supplementation given, 11/05/23 K 3.9. #4. Chronic normocytic anemia/iron deficiency anemia: Admission hemoglobin 9.3,MCV 97.3, baseline hemoglobin primarily more recently 8-9, continue iron supplementation. 11/05/23 CBC w/ Hgb 8.5, MCV 104. #5. BL Flank discomfort w/ History nephrolithiasis, noted nonobstructive calculi, possible UTI as noted but more suspicious for musculoskeletal etiology:CT abdomen and pelvis with noted nephrolithiasis but not marked appearing and noevidence of any obstructive process, again patient flank discomfort reproducibleand more consistent with musculoskeletal etiology. Continue lidocaine patches, offloading, PT/OT. #6. Chronic Kidney Disease Stage III, unclear subtype: Admission BUN/Cr 62/1.25, baseline renal function primarily 1.1-1.4, 11/05/23 BUN/Cr 34/1.24, GFR 44. #7. HFpEF: 09/04/2023 echocardiogram with normal LV, LV systolic function normal, EF 70%, PASP 30 mmHg. Judiciously hydrating given history, will continuepatient Plavix, statin, Coreg, losartan, Lasix home regimen. #8. Hypertension: Continue home regimen including Coreg, Lasix, losartan, PRN hydralazine. #9. Hyperlipidemia: We will continue patient home statin therapy. #10. 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 #11. PAD: We will continue patient home Plavix, statin, hypertensive regimen asnoted. #12. History of TIA: We will continue patient Plavix, statin, hypertensive regimen as noted. #13. Chronic bilateral lower extremity lymphedema/edema: Will place neck Diana wraps. #14. Restless leg syndrome: Will continue patient on pramipexole regimen. #15. GERD: We will continue patient on PPI. #16. DVT prophylaxis: Heparin. #17. CODE status: Patient SRAVANI is her daughter who is present and living will is currently in place. DNR-CCA, no intubation status. Charges/Coding Visit Charges Inpatient E&M: 30702 Init Hosp L2 11/05/23 1140 <Electronically signed by Pema Sal MD> Cosigner Signature (if applicable): CC: ~ Signed [facility] Work Phone: 1(426) 525-540004-19-2024 Progress note Author Herrera Bauman [facility] November 04, 2023 1:46pm Note Date/Time November 04, 2023 7:5 8am [facility] Medical Records Department [address] [place] [address] Progress Note - Hospitalist 11/04/23 0747 MR#: [id number] Acct: [id number] Name: DICK ARTIS Rep #:[id number] : 1935 88 From: Herrera Bauman DO PCP: Dr. Mady Dunn MD Status:AD M IN Location: [place] [address] Reason for Visit Reason for Visit: Diagnoses Diverticulitis of intestine, part unspecified, without perforation or abscess without bleeding (11/03/23) Subjective Subjective Still back and abdominal pain. Previously, has had diverticulitis, but was too long ago to recall her symptoms at that time. Objective Data Objective Data Vital Signs: Vital Signs Temp Pulse Resp BP Pulse Ox O2 Del Method O2 Flow Rate 37.1 C 86 20 H 109/54 L 94 Nasal Cannula 2 11/04/23 05:56 11/04/23 06:57 11/04/23 06:57 11/04/23 05:56 11/04/23 06:57 11/04/23 06:57 11/04/23 06:57 Oxygen Flow Rate (L/min) 2 Oxygen Delivery Method Nasal Cannula Weight: 69.7 kg Body Mass Index (BMI) 28.0 Intake & Output: Intake and Output for Last 24 Hours 11/02/23 11/03/23 11/04/23 23:59 23:59 23:59 Intake Total 650 / 650 1100 / 1100 Balance 650 / 650 1100 / 1100 Lab / Micro Data 11/04/23 05:37 11/04/23 05:37 Labs: Laboratory Results - last 24 hr 11/03/23 12:50: WBC 5.9, RBC 2.97 L, Hgb 9.3 L, Hct 28.9 L, MCV 97.3, MCH 31.3, MCHC 32.2, RDW Std Deviation 63.7 H, RDW Coeff of Ha 17.9 H, Plt Count 194, MPV10.2, Immature Gran % (Auto) 0.300, Neut % (Auto) 63.5, Lymph % (Auto) 20.1, [place] % (Auto) 14.3 H, Eos % (Auto) 1.5, Baso % (Auto) 0.3, Absolute Neuts (auto)3.7, Absolute Lymphs (auto) 1.18, Nucleated RBC % 0, Sodium 141, Potassium 2.6 L*, Chloride 99, Carbon Dioxide 36.0 H, Anion Gap 6, BUN 62 H, Creatinine 1.25 H, Estim Creat Clear Calc 28.84, Est GFR (MDRD) Af Amer 52 L, Est GFR (MDRD) Non-Af 43 L, BUN/Creatinine Ratio 49.6 H, Glucose 112 H, Calcium 8.6, Magnesium 2.1,Troponin I High Sens 17, B-Natriuretic Peptide 310.7 H 11/03/23 13:20: Urine Color Yellow, Urine Clarity Sl. Cloudy, Urine pH 7.0, Ur Specific [place] 1.005, Urine Protein Negative, Urine Glucose (UA) Normal, UrineKetones Negative, Urine Occult Blood Negative, Urine Nitrite Negative, Urine Bilirubin Negative, Urine Urobilinogen Normal, Ur Leukocyte Esterase 100 H, Urine RBC 0 SEEN, Urine WBC 0-5 SEEN, Ur Squamous Epith Cells 0 SEEN, Urine Bacteria 2+, Urine Mucus 0 SEEN 11/04/23 05:37: WBC 3.9 L, RBC 2.67 L, Hgb 8.2 L, Hct 27.1 L, MCV 101.5 H, MCH 30.7, MCHC 30.3 L D, RDW Std Deviation 67.8 H, RDW Coeff of Ha 18.1 H, Plt Count 180, MPV 10.8, Immature Gran % (Auto) 0.500, Neut % (Auto) 55.6, Lymph % (Auto) 23.4, [place] % (Auto) 15.8 H, Eos % (Auto) 4.2, Baso % (Auto) 0.5, AbsoluteNeuts (auto) 2.1, Absolute Lymphs (auto) 0.90, Nucleated RBC % 0, Anisocytosis RARE, Sodium 143, Potassium 2.9 L, Chloride 104, Carbon Dioxide 33.0 H, Anion Gap 6, BUN 45 H, Creatinine 1.18 H, Estim Creat Clear Calc 31.30, Est GFR (MDRD)Af Amer 56 L, Est GFR (MDRD) Non-Af 46 L, BUN/Creatinine Ratio 38.1 H, Glucose 113 H, Calcium 8.0 L, Total Bilirubin 0.30, AST 23, ALT 14, Alkaline [id number], Total Protein 5.7 L, Albumin 2.6 L, Globulin 3.1, Albumin/Globulin Ratio 0.8L Radiography Diagnostic Testing: Radiology Impression Abdomen/Pelvis CT 11/03/23 12:56 IMPRESSION: Findings AP with a mild degree of sigmoid diverticulitis. Stable appearance of the right kidney with atrophy and mass in the upper pole. Scattered left nonobstructive intrarenal calculi. Electronically Signed: Ramos Jolley MD at 13:40 EDT , Chest X-Ray 11/03/23 14:02 IMPRESSION: Hyperinflation. Stable mild scarring at the lung bases. No acute abnormality is seen. Electronically Signed: Ramos Jolley MD at 14:38 EDT , Physical Exam Const alert and no apparent distress Resp normal respiratory effort, no retractions, no use of accessory muscles and clearto auscultation bilaterally Cardio regular rate, regular rhythm, S1 normal heart sound and S2 normal heart sound GI normal to inspection, nondistended, normoactive bowel sounds and soft to palpation GI Narrative: epigastric abdominal pain Extremity normal to inspection Assessment & Plan Assessment/Plan (1) Diverticulitis: PLAN: Plan Acute sigmoid diverticulitis * CTX and metronidazole * CLD, advance as tolerated * pain control Abnormal UA * UA has 100 leuk esterase, 0-5 WBCs. Not consistent with UTI, therefore UTI ruled out. No additional work up at this time. Hypokalemia * replace * Magnesium WNL Chronic conditions: * Chronic normocytic anemia/iron deficiency anemia: Hg 8.2. Monitor. * Chronic Kidney Disease Stage III, unclear subtype: Admission BUN/Cr 62/1.25, baseline renal function primarily 1.1-1.4, repeat BMP in AM. * HFpEF: 09/04/2023 echocardiogram with normal LV, LV systolic function normal, EF 70%, PASP 30 mmHg. Will judiciously hydrate given history, will continue patient Plavix, statin, Coreg, losartan, Lasix home regimen. * Hypertension: Continue home regimen including Coreg, Lasix, losartan, PRN hydralazine. * Hyperlipidemia: We will continue patient home statin therapy. * COPD w/ Chronic Hypoxic Respiratory Failure (2-3L NC): Will maintain on oxygen with wean as tolerated to home oxygen supplementation, continue ATC budesonide, PRN albuterol, HOB, IS parameters * PAD: We will continue patient home Plavix, statin, hypertensive regimen as noted. * History of TIA: We will continue patient Plavix, statin, hypertensive regimen as noted. * Chronic bilateral lower extremity lymphedema/edema: Will place neck Diana wraps. * Restless leg syndrome: Will continue patient on pramipexole regimen. * GERD: We will continue patient on PPI. DVT prophylaxis: Heparin. CODE status: DNR-CCA and DNR-CC status. Disposition: To be determined. Depending on the patient's response, see if dietcan be advanced. Charges/Coding Visit Charges Inpatient E&M: 16057 Subs Hosp L2 11/04/23 1346 <Electronically signed by Herrera Bauman DO> Cosigner Signature (if applicable): CC: ~ Signed [facility] Work Phone: [phone]) [phone] Discharge summary Author Ana Grayson [facility] November 03, 2023 6:25pm Note Date/Time November 03, 2023 1:3 0pm [facility] Medical Records Department [address] [place] [address] Emergency Department Summary 11/03/23 MR#: [id number] Acct: [id number] Name: DICK ARTIS Rep #:[id number] : 1935 88 From: Ana Grayson MD PCP: Dr. Mady Dunn MD Status:AD M IN Location: [address] <Keila Ojeda RN - Last Filed: 11/03/23 14:47> History of Present Illness Chief Complaint: Shortness of Breath Detail of Chief Complaint: Shortness of breath and bilateral flank pain Informant: patient and family Onset/Context/Timing Onset: Weeks (Bilateral flank pain x 1 week, bilateral lower extremity edema x 1week, shortness of breath worse today) Quality: Aching Current Severity: 8/10 Maximum Severity: 10/10 Worsened by: Palpation activity Relieved by: Rest Narrative Narrative: Patient is an 88-year-old female with past medical history significant for COPD,diabetes, GERD, CHF, and hypertension who was recently discharged from the transitional care unit on 10/15/2023. She presents to the ED with her son for bilateral flank pain and lower extremity edema x 1 week and shortness of breath worsening today. She does report urinary urgency which is normal for her. She denies any recent weight gain. She did contact her primary care provider who prescribed tizanidine yesterday. She did take doses at 8 PM last night, 2 AM and 4 AM this morning without relief. She was recently taken off of oxycodone by palliative care due to nausea. She does report a prior history of kidney stones. She denies injury. She denies recent travel. She denies chest pain and palpitations. She denies abdominal pain. She denies dysuria and hematuria. Prior similar symptoms: No Recent Illness/Hospitalization: Yes [facility] <Keila Ojeda RN - Last Filed: 11/03/23 14:47> [facility] Medical History Acute hypoxic respiratory failure Anemia Bilateral carotid artery stenosis Chronic heart failure with preserved ejection fraction (HFpEF) Chronic kidney disease CKD (chronic kidney disease), stage III Claudication Debility Diverticulosis Dyslipidemia Essential hypertension Heart failure due to high blood pressure History of COPD History of TIA (transient ischemic attack) Hyperlipidemia Hypertension Leg edema Limb weakness Muscle spasm of left shoulder area Neck and back pain PAD (peripheral artery disease) Renal cyst Right lumbar radiculopathy RLS (restless legs syndrome) Shortness of breath Shoulder pain TIA (transient ischemic attack) Vertigo Home Medications atorvastatin 40 mg tablet 40 mg PO QHS cholesterol 02/22/16 [History Last Taken 10/04/23 21:55] clopidogrel 75 mg tablet 75 mg PO DAILY BLOOD THINNER 02/22/16 [History Last Taken 10/05/23 08:50] multivitamin with folic acid 400 mcg tablet 1 tab PO DAILY supplement 02/22/16 [History Last Taken 10/05/23 08:50] albuterol sulfate 90 mcg/actuation aerosol inhaler 2 puff inhalation BID PRN shortness of breath or wheezing 03/16/18 [History Last Taken 09/02/23] cholecalciferol (vitamin D3) 25 mcg (1,000 unit) tablet 2,500 unit PO DAILY SUPPLEMENT 10/09/18 [History Last Taken 10/05/23 08:50] albuterol sulfate 2.5 mg/3 mL (0.083 %) solution for nebulization 2.5 mg inhalation Q4H PRN shortness of breath or wheezing 05/28/22 [History Last Taken 10/03/23 04:30] carvedilol 12.5 mg tablet 12.5 mg PO BID CHOLESTEROL #180 tabs 04/27/23 [Rx Last Taken 10/05/23 08:50] duloxetine 30 mg capsule,delayed release 30 mg PO BID pain 08/17/23 [History Last Taken 10/05/23 08:50] pramipexole 1.5 mg tablet 1.5 mg PO QHS restless leg syndrome 08/18/23 [History Last Taken 10/04/23 21:55] budesonide 0.5 mg/2 mL suspension for nebulization 0.25 mg inhalation BID breathing 30 days #0 mL 09/09/23 [Rx Last Taken 10/05/23 07:00] dextromethorphan-guaifenesin 30 mg-600 mg tablet extended ptmcson25 hr (Mucinex DM) 2 tab PO BID cough 7 days #0 tabs 09/09/23 [Rx Last Taken 10/05/23 08:55] ascorbic acid (vitamin C) 500 mg tablet 500 mg PO 1000 #0 tabs 10/12/23 [Rx Last Taken Unknown] furosemide 40 mg tablet 40 mg PO BIDCM FLUID RETENTION 30 days #60 tabs 10/12/23[Rx Last Taken Unknown] losartan 25 mg tablet 25 mg PO DAILY 30 days #30 tabs 10/12/23 [Rx Last Taken Unknown] pantoprazole 40 mg tablet,delayed release 40 mg PO BID 30 days #60 tabs 10/12/23[Rx Last Taken Unknown] polysaccharide iron complex 150 mg iron capsule (Ferrex) 150 mg PO DAILY 30 days#30 caps 10/12/23 [Rx Last Taken Unknown] potassium chloride 20 mEq tablet,extended release(part/cryst) 20 meq PO BIDCM 30days #60 tabs 10/12/23 [Rx Last Taken Unknown] Allergy/AdvReac Type Severity Reaction Status Date / Time lisinopril Allergy edema Verified 11/03/23 11:37 aspirin AdvReac Upset Verified 11/03/23 11:37 Stomach Family History Mother Heart disease Surgical History History of basal cell carcinoma excision History of carotid angioplasty History of kidney stones History of thyroid surgery History of total hysterectomy Social History household members: none housing: house Smoking Status: Former smoker how long ago did patient quit smokin years ago alcohol intake: current alcohol intake frequency: holidays/special occasions only details: rare substance use type: does not use caffeine: Yes Type: coffee Number of servings: 1 ROS <Keila Ojeda RN - Last Filed: 11/03/23 14:47> ROS ED Constitutional Constitutional ED: Denies chills, fever(s), sweats or weight loss Eyes Eyes: Denies change in vision Cardiovascular Cardiovascular: Denies chest pain, orthopnea, palpitations or racing heartbeat Respiratory/Chest Respiratory/Chest: Reports cough, dyspnea and dyspnea on exertion; Denies orthopnea or sputum Gastrointestinal Gastrointestinal: Denies abdominal pain, constipation, diarrhea, nausea or vomiting Genitourinary Genitourinary ED: Reports urinary frequency; Denies dysuria or hematuria Musculoskeletal Musculoskeletal: Reports back pain and myalgias; Denies neck pain Neurologic Neurologic: Denies headache(s) or paresthesias Hematologic/Lymphatic Hematologic/Lymphatic: Reports systems reviewed and no addt'l complaints, exceptas documented EXAM <Keila Ojeda RN - Last Filed: 11/03/23 14:47> Physical Exam Narrative Exam Narrative: Patient awake, alert, good historian Const Vital Signs: 11/03/23 11:37 11/03/23 12:41 11/03/23 12:48 Temperature 96.6 F L 97.5 F L Temperature Source Temporal Temporal Pulse Rate 89 88 Respiratory Rate 16 22 H Respiratory Effort Short of Breath Labored Respiratory Depth Shallow Respiratory Pattern Tachypnea Blood Pressure 123/55 H 140/50 H Blood Pressure Mean 77 80 Pulse Ox 91 97 Oxygen Delivery Method Nasal Cannula Nasal Cannula Oxygen Flow Rate (L/min) 2 2 11/03/23 12:45 11/03/23 13:51 11/03/23 14:00 Temperature Temperature Source Pulse Rate 91 84 83 Respiratory Rate 20 H 20 H 21 H Respiratory Effort Respiratory Depth Respiratory Pattern Blood Pressure 140/50 H 114/98 H 114/98 H Blood Pressure Mean 80 103 103 Pulse Ox 97 97 94 Oxygen Delivery Method Nasal Cannula Nasal Cannula Nasal Cannula Oxygen Flow Rate (L/min) 2 2 2 11/03/23 14:15 Temperature 97.2 F L Temperature Source Temporal Pulse Rate 83 Respiratory Rate 20 H Respiratory Effort Respiratory Depth Respiratory Pattern Blood Pressure 116/88 H Blood Pressure Mean 97 Pulse Ox 94 Oxygen Delivery Method Room Air Oxygen Flow Rate (L/min) Positive well nourished and well developed General Appearance ED: well developed and NAD HEENT Reports moist mucous membranes Eyes PERRL and EOMs intact bilaterally Chest Wall inspection of chest normal and palpation of chest normal Resp Resp Narrative: Slightly labored breathing. Able to speak in 4 word sentences. Auscultation: wheezes expiratory wheezes and throughout and diminished lung sounds; Negative for rales or rhonchi Cardio regular rate, regular rhythm, S1 normal heart sound and S2 normal heart sound GI normal to inspection, nondistended, normoactive bowel sounds and non-tender Auscultation: normoactive bowel sounds Palpation: soft Back/Spine General Back: CVA tenderness bilateral Extremity Extremity Narrative: Mild, nonpitting bilateral pedal edema General Extremety ED: Yes edema General Extremity: edema Neuro oriented x3 Sensorium / Orientation: alert Motor Exam: strength 5/5 throughout Psych mental status grossly normal Skin no rashes or lesions noted <Dr. Ana Grayson MD - Last Filed: 11/03/23 14:55> Physical Exam Const Vital Signs: 11/03/23 11:37 11/03/23 12:41 11/03/23 12:48 Temperature 96.6 F L 97.5 F L Temperature Source Temporal Temporal Pulse Rate 89 88 Respiratory Rate 16 22 H Respiratory Effort Short of Breath Labored Respiratory Depth Shallow Respiratory Pattern Tachypnea Blood Pressure 123/55 H 140/50 H Blood Pressure Mean 77 80 Pulse Ox 91 97 Oxygen Delivery Method Nasal Cannula Nasal Cannula Oxygen Flow Rate (L/min) 2 2 11/03/23 12:45 11/03/23 13:51 11/03/23 14:00 Temperature Temperature Source Pulse Rate 91 84 83 Respiratory Rate 20 H 20 H 21 H Respiratory Effort Respiratory Depth Respiratory Pattern Blood Pressure 140/50 H 114/98 H 114/98 H Blood Pressure Mean 80 103 103 Pulse Ox 97 97 94 Oxygen Delivery Method Nasal Cannula Nasal Cannula Nasal Cannula Oxygen Flow Rate (L/min) 2 2 2 11/03/23 14:15 Temperature 97.2 F L Temperature Source Temporal Pulse Rate 83 Respiratory Rate 20 H Respiratory Effort Respiratory Depth Respiratory Pattern Blood Pressure 116/88 H Blood Pressure Mean 97 Pulse Ox 94 Oxygen Delivery Method Room Air Oxygen Flow Rate (L/min) MDM <Keila Ojeda RN - Last Filed: 11/03/23 14:47> [facility] Narrative Medical decision making narrative: IV line initiated. Labwork obtained to evaluate for leukocytosis, anemia, and electrolyte derangement. Urinalysis obtained to evaluate for infection/hematuria. BNP obtained to evaluate for CHF. CT abdomen/pelvis obtained to evaluate for renal stones. EKG obtained to evaluate for cardiac arrhythmia/ischemia. History & Record Review Discussion w/independent historian: Patient and Family Lab Data Attestation: I reviewed the patient's lab results. Labs: Laboratory Results - last 24 hr 11/03/23 11/03/23 12:50 13:20 WBC 5.9 RBC 2.97 L Hgb 9.3 L Hct 28.9 L MCV 97.3 MCH 31.3 MCHC 32.2 RDW Std Deviation 63.7 H RDW Coeff of Ha 17.9 H Plt Count 194 MPV 10.2 Immature Gran % (Auto) 0.300 Neut % (Auto) 63.5 Lymph % (Auto) 20.1 [place] % (Auto) 14.3 H Eos % (Auto) 1.5 Baso % (Auto) 0.3 Absolute Neuts (auto) 3.7 Absolute Lymphs (auto) 1.18 Nucleated RBC % 0 Sodium 141 Potassium 2.6 L* Chloride 99 Carbon Dioxide 36.0 H Anion Gap 6 BUN 62 H Creatinine 1.25 H Estim Creat Clear Calc 28.84 Est GFR (MDRD) Af Amer 52 L Est GFR (MDRD) Non-Af 43 L BUN/Creatinine Ratio 49.6 H Glucose 112 H Calcium 8.6 Troponin I High Sens 17 B-Natriuretic Peptide 310.7 H Urine Color Yellow Urine Clarity Sl. Cloudy Urine pH 7.0 Ur Specific [place] 1.005 Urine Protein Negative Urine Glucose (UA) Normal Urine Ketones Negative Urine Occult Blood Negative Urine Nitrite Negative Urine Bilirubin Negative Urine Urobilinogen Normal Ur Leukocyte Esterase 100 H Urine RBC 0 SEEN Urine WBC 0-5 SEEN Ur Squamous Epith Cells 0 SEEN Urine Bacteria 2+ Urine Mucus 0 SEEN Radiography Diagnostic Testing: Clinical Impression(s) from Imaging Studies Abdomen/Pelvis CT 11/03/23 12:56 IMPRESSION: Findings AP with a mild degree of sigmoid diverticulitis. Stable appearance of the right kidney with atrophy and mass in the upper pole. Scattered left nonobstructive intrarenal calculi. Electronically Signed: Ramos Jolley MD at 13:40 EDT , Chest X-Ray 11/03/23 14:02 IMPRESSION: Hyperinflation. Stable mild scarring at the lung bases. No acute abnormality is seen. Electronically Signed: Ramos Jolley MD at 14:38 EDT , EKG Initial EKG: Attestation: I personally reviewed and interpreted this EKG as follows: Interpretation: Sinus Rhythm Comments: Sinus rhythm with PACs with a rate of 77. No evidence of ischemia. Differential Diagnosis Differential Diagnosis: Lumbar muscle strain. Differential Diagnosis: Renal stone Management Discussion w/another healthcare provider: Other (Dr. Grayson, ED provider) Treatment and Re-Evaluation :: Lab work and imaging reviewed. CBC shows a normal white blood cell count of 5.9, hemoglobin 9.3 which is patient baseline with last reported hemoglobin on 10/13/2023 of 8.6, platelets 194. Chemistry shows a sodium of 141, hypokalemia at 2.6, BUN 62, creatinine 1.25 with patient's last reported creatinine 1.22 on 10/15/2023, and glucose 112. High-sensitivity troponin is negative at 17. BNP iselevated at 310.7. Urinalysis is negative for nitrites, positive for leukocytes, 2+ bacteria. CT of the abdomen pelvis shows mild degree of sigmoid diverticulitis, stable right kidney with atrophy and mass in the upper pole, andscattered left nonobstructive intrarenal calculi. EKG shows sinus rhythm with PACs at a rate of 77 with no evidence of ischemia. Chest x-ray was obtained dueto shortness of breath showing mild scarring at the lung bases and no acute abnormality. Potassium 10 mill equivalents was ordered due to hypokalemia. Ceftriaxone and metronidazole given for UTI and diverticulitis. Patient was also given a dose of fentanyl for flank pain. Upon reevaluation, patient appears to be resting comfortably in bed with family at bedside. Patient updated on labs and imaging. Patient is agreeable to admission. Hospitalist is contacted by Dr. Grayson for admission. <Dr. Ana Grayson MD - Last Filed: 11/03/23 14:55> [facility] Lab Data Labs: Laboratory Results - last 24 hr 11/03/23 11/03/23 12:50 13:20 WBC 5.9 RBC 2.97 L Hgb 9.3 L Hct 28.9 L MCV 97.3 MCH 31.3 MCHC 32.2 RDW Std Deviation 63.7 H RDW Coeff of Ha 17.9 H Plt Count 194 MPV 10.2 Immature Gran % (Auto) 0.300 Neut % (Auto) 63.5 Lymph % (Auto) 20.1 [place] % (Auto) 14.3 H Eos % (Auto) 1.5 Baso % (Auto) 0.3 Absolute Neuts (auto) 3.7 Absolute Lymphs (auto) 1.18 Nucleated RBC % 0 Sodium 141 Potassium 2.6 L* Chloride 99 Carbon Dioxide 36.0 H Anion Gap 6 BUN 62 H Creatinine 1.25 H Estim Creat Clear Calc 28.84 Est GFR (MDRD) Af Amer 52 L Est GFR (MDRD) Non-Af 43 L BUN/Creatinine Ratio 49.6 H Glucose 112 H Calcium 8.6 Troponin I High Sens 17 B-Natriuretic Peptide 310.7 H Urine Color Yellow Urine Clarity Sl. Cloudy Urine pH 7.0 Ur Specific [place] 1.005 Urine Protein Negative Urine Glucose (UA) Normal Urine Ketones Negative Urine Occult Blood Negative Urine Nitrite Negative Urine Bilirubin Negative Urine Urobilinogen Normal Ur Leukocyte Esterase 100 H Urine RBC 0 SEEN Urine WBC 0-5 SEEN Ur Squamous Epith Cells 0 SEEN Urine Bacteria 2+ Urine Mucus 0 SEEN Radiography Diagnostic Testing: Clinical Impression(s) from Imaging Studies Abdomen/Pelvis CT 11/03/23 12:56 IMPRESSION: Findings AP with a mild degree of sigmoid diverticulitis. Stable appearance of the right kidney with atrophy and mass in the upper pole. Scattered left nonobstructive intrarenal calculi. Electronically Signed: Ramos Jolley MD at 13:40 EDT , Chest X-Ray 11/03/23 14:02 IMPRESSION: Hyperinflation. Stable mild scarring at the lung bases. No acute abnormality is seen. Electronically Signed: Ramos Jolley MD at 14:38 EDT , Treatment and Re-Evaluation :: Lab work and imaging reviewed. CBC shows a normal white blood cell count of 5.9, hemoglobin 9.3 which is patient baseline with last reported hemoglobin on 10/13/2023 of 8.6, platelets 194. Chemistry shows a sodium of 141, hypokalemia at 2.6, BUN 62, creatinine 1.25 with patient's last reported creatinine 1.22 on 10/15/2023, and glucose 112. High-sensitivity troponin is negative at 17. BNP iselevated at 310.7. Urinalysis is negative for nitrites, positive for leukocytes, 2+ bacteria. CT of the abdomen pelvis shows mild degree of sigmoid diverticulitis, stable right kidney with atrophy and mass in the upper pole, andscattered left nonobstructive intrarenal calculi. EKG shows sinus rhythm with PACs at a rate of 77 with no evidence of ischemia. Chest x-ray was obtained dueto shortness of breath showing mild scarring at the lung bases and no acute abnormality. Potassium 10 mill equivalents was ordered due to hypokalemia. Ceftriaxone and metronidazole given for UTI and diverticulitis. Patient was also given a dose of fentanyl for flank pain. Upon reevaluation, patient appears to be resting comfortably in bed with family at bedside. Patient updated on labs and imaging. Patient is agreeable to admission. Hospitalist is contacted by Dr. Grayson for admission. Patient seen and evaluated with [employer] student. I personally interviewed and examined the patient. I was involved in all aspects of patient's orders, interpretation of results, and treatment. Patient presents secondary to bilateral flank pain as well as increased shortness of breath. She reports lower back pain bilaterally that is been ongoing for the past couple of days. She denies any known injury. She does have a history of kidney stones but this does not exactly feel similar. She hashad some urinary urgency but that is not new or different. No fever or chills. She also reports increased shortness of breath with some slight increase swelling of her lower extremities. Patient recently had hospital admission for shortness of breath and pneumonia. She was discharged from the TCU on the . She has history of COPD and CHF. Patient lying in bed in no acute distress but does appear uncomfortable. Head and neck examination unremarkable. Heart is regular rate and rhythm. Lung sounds are slightly diminished at the bases. Abdomen is soft and nontender anteriorly. Back examination does reveal muscular tenderness in the lumbar paraspinal region. No ecchymosis or abrasions noted. CBC was normal white count of 5.9 with a hemoglobin of 9.3. No left shift noted. Chemistry studies significant for potassium of 2.6. BUN is 62 and creatinine is 1.25 which is near her baseline. Troponin is normal at 17 with a BNP of 310. Urinalysis reveals 2+ bacteria with only 0-5 white cells and no nitrites. CT of the flank reveals mild early diverticulitis. There is a mass in the right upper renal pole that appears stable when compared to prior. Potassium was replaced via IV. Patient given Rocephin as well as Flagyl to cover for her bacteriuria and early diverticulitis. Patient did require a dose of fentanyl here for pain control. Given her multiple comorbidities and weakness we will speak with hospitalist regarding admission. Patient comfortable with the plan. Discharge Plan Dx/Rx/DC Orders Clinical Impression: Urinary tract infection, History of COPD, History of chronic heart failure, Diverticulitis, History of hypertension, History of diabetes mellitus, Acute hypokalemia Disposition Disposition: [facility] What to do if you have Problems For any increased pain, shortness of breath, bleeding, nausea or vomiting, chestpain, or any unexpected problems, contact your Primary Care Provider. Call [facility] ([phone]) or report to the closest Emergency Room. Call 911 if necessary. 11/03/23 1825 <Electronically signed by Ana Grayson MD> Cosigner Signature (if applicable): 11/03/23 1447 <Electronically signed by Keila Ojeda RN> CC: Dr. Mady Dunn MD ~ Signed [facility] Work Phone: [phone] History and physical note Author Pema Sal [facility] November 03, 2023 6:17pm Note Date/Time November 03, 2023 3:2 2pm [facility] Medical Records Department [address] [place] [address] H&P Exam - Hospitalist 11/03/23 1522 MR#: [id number] Acct: [id number] Name: DICK ARTIS Rep #:[id number] : 1935 88 From: Pema Sal MD PCP: Dr. Mady Dunn MD Status:AD M IN Location: [place] [id number] HPI - General General Date of Admission: 11/03/23 Date of Service: 11/03/23 Chief Complaint: Abdominal pain, flank pain HPI Narrative The patient is an 88 y/o F w/ PMHx: CKD stage III unclear subtype, HTN, HLD, HFpEF, COPD w/ Chronic Hypoxic Respiratory Failure (2-3L NC), Hx TIA, Chronic BLLE edema, RLS, PAD, recent discharge from TCU following admission for respiratory failure secondary to post-COVID, Acute HFpEF who now re-presents to the [facility] ED on 11/03/23 with history of persistent bilateral flank discomfort, abdominal cramping diffusely as well as diarrhea in addition to ongoing bilateral lower extremity swelling and shortness of breath more pronounced on day of presentation with flank pain described as aching and worsened by activityrated 8-10 out of 10 in severity with recent discharge from transitional care 10/15/2023 with reported urinary urgency which is her baseline with no recent weight gain with PCP prescription for tizanidine for concern of muscle spasms with doses the evening prior as well as at 2 AM and 4 AM without relief recentlytaken off of oxycodone from palliative care secondary to nausea with history of previous kidney stones but given ongoing discomfort prompted ED evaluation. Workup in the ED included T96.6, heart rate 89, BP 123/55, respiratory rate 16, 91% on 2 L nasal cannula with most recent assessment 10/15/2023 patient noted to be 96% on 3 L nasal cannula, most recent vital signs T97.6, heart rate 83, BP 116/88, respiratory rate 20, 95% on 2 L nasal cannula, CBC with WC 5.9, hemoglobin 9.3, MCV 97.3, platelet 194 without marked shift, BMP with potassium 2.6, Comvax at 36, BUN/creatinine 62/1.25, GFR 43, glucose 112, troponin 17, IOJ283.7, urinalysis with leukocyte Estrace 100, nitrite negative with no marked urine WBCs or RBCs however 2+ bacteria noted, chest x-ray with hyperinflation and stable scarring in the lung bases, CT abdomen and pelvis with stable findings of mild degree of sigmoid diverticulitis, stable appearance right kidney with atrophy and mass in the upper pole, scattered left nonobstructive intrarenal calculi, EKG with sinus rhythm with PACs with no acute evidence of ischemia. In the ED patient administered potassium supplementation, Flagyl, Rocephin and fentanyl 25 mcg IV x 1. PFSH Medical History (Updated 11/03/23 @ 18:[address] Pema Sal MD) Anemia Bilateral carotid artery stenosis Chronic heart failure with preserved ejection fraction (HFpEF) Chronic hypoxic respiratory failure Chronic kidney disease CKD (chronic kidney disease), stage III Claudication COPD (chronic obstructive pulmonary disease) Diverticulosis Dyslipidemia History of TIA (transient ischemic attack) Hyperlipidemia Hypertension Leg edema PAD (peripheral artery disease) Renal cyst Right lumbar radiculopathy RLS (restless legs syndrome) TIA (transient ischemic attack) Vertigo Home Medications atorvastatin 40 mg tablet 40 mg PO QHS cholesterol 02/22/16 [History Last Taken 10/04/23 21:55] clopidogrel 75 mg tablet 75 mg PO DAILY BLOOD THINNER 02/22/16 [History Last Taken 10/05/23 08:50] multivitamin with folic acid 400 mcg tablet 1 tab PO DAILY supplement 02/22/16 [History Last Taken 10/05/23 08:50] albuterol sulfate 90 mcg/actuation aerosol inhaler 2 puff inhalation BID PRN shortness of breath or wheezing 03/16/18 [History Last Taken 09/02/23] cholecalciferol (vitamin D3) 25 mcg (1,000 unit) tablet 2,500 unit PO DAILY SUPPLEMENT 10/09/18 [History Last Taken 10/05/23 08:50] albuterol sulfate 2.5 mg/3 mL (0.083 %) solution for nebulization 2.5 mg inhalation Q4H PRN shortness of breath or wheezing 05/28/22 [History Last Taken 10/03/23 04:30] carvedilol 12.5 mg tablet 12.5 mg PO BID CHOLESTEROL #180 tabs 04/27/23 [Rx Last Taken 10/05/23 08:50] duloxetine 30 mg capsule,delayed release 30 mg PO BID pain 08/17/23 [History Last Taken 10/05/23 08:50] pramipexole 1.5 mg tablet 1.5 mg PO QHS restless leg syndrome 08/18/23 [History Last Taken 10/04/23 21:55] budesonide 0.5 mg/2 mL suspension for nebulization 0.25 mg inhalation BID breathing 30 days #0 mL 09/09/23 [Rx Last Taken 10/05/23 07:00] dextromethorphan-guaifenesin 30 mg-600 mg tablet extended hr (Mucinex DM) 2 tab PO BID cough 7 days #0 tabs 09/09/23 [Rx Last Taken 10/05/23 08:55] ascorbic acid (vitamin C) 500 mg tablet 500 mg PO 1000 #0 tabs 10/12/23 [Rx Last Taken Unknown] furosemide 40 mg tablet 40 mg PO BIDCM FLUID RETENTION 30 days #60 tabs 10/12/23[Rx Last Taken Unknown] losartan 25 mg tablet 25 mg PO DAILY 30 days #30 tabs 10/12/23 [Rx Last Taken Unknown] pantoprazole 40 mg tablet,delayed release 40 mg PO BID 30 days #60 tabs 10/12/23[Rx Last Taken Unknown] polysaccharide iron complex 150 mg iron capsule (Ferrex) 150 mg PO DAILY 30 days#30 caps 10/12/23 [Rx Last Taken Unknown] potassium chloride 20 mEq tablet,extended release(part/cryst) 20 meq PO BIDCM 30days #60 tabs 10/12/23 [Rx Last Taken Unknown] Allergy/AdvReac Type Severity Reaction Status Date / Time lisinopril Allergy edema Verified 11/03/23 11:37 aspirin AdvReac Upset Verified 11/03/23 11:37 Stomach Family History Mother Heart disease other (Patient does not know her father nor her paternal family history.) Surgical History History of basal cell carcinoma excision History of carotid angioplasty History of kidney stones History of thyroid surgery History of total hysterectomy Social History household members: none housing: house Smoking Status: Former smoker how long ago did patient quit smokin years ago alcohol intake: current alcohol intake frequency: holidays/special occasions only details: rare substance use type: does not use caffeine: Yes Type: coffee Number of servings: 1 ROS ROS Narrative Admission Review of Systems: CONSTITUTIONAL: No weight loss, fever, chills, + weakness or fatigue. HEENT: Eyes: No visual loss, blurred vision, double vision or yellow sclerae. Ears, Nose, Throat: No hearing loss, sneezing, congestion, runny nose or sore throat. SKIN: No rash or itching, lesions, wounds. CARDIOVASCULAR: + Chronic significant edema. No chest pain, chest pressure or chest discomfort, palpitations, orthopnea, syncopal events. RESPIRATORY: + Dyspnea. No marked cough or sputum, wheezing, hemoptysis. GASTROINTESTINAL: + Anorexia, abdominal cramping and discomfort as well as diarrhea. No nausea, vomiting, melena, BRBPR. GENITOURINARY: + Reported bilateral flank discomfort although more consistent with musculoskeletal etiology as reproducible with palpation. No dysuria, frequency, urgency or retention. NEUROLOGICAL: No headache, dizziness, syncope, paralysis, ataxia, numbness or tingling in the extremities, focal weakness, change in bowel or bladder control,seizure. MUSCULOSKELETAL: + muscle, back pain, joint pain or stiffness. HEMATOLOGIC: + Chronic anemia, easy bleeding/bruising. LYMPHATICS: No enlarged nodes. No history of splenectomy. PSYCHIATRIC: No history of depression or anxiety. ENDOCRINOLOGIC: No reports of sweating, cold or heat intolerance. No polyuria orpolydipsia. ALLERGIES: + History of allergic rhinitis. Vital Signs Vital Signs Vital Signs: 11/03/23 11:37 11/03/23 12:41 11/03/23 12:48 Temperature 96.6 F L 97.5 F L Temperature Source Temporal Temporal Pulse Rate 89 88 Respiratory Rate 16 22 H Respiratory Effort Short of Breath Labored Respiratory Depth Shallow Respiratory Pattern Tachypnea Blood Pressure 123/55 H 140/50 H Blood Pressure Mean 77 80 Pulse Ox 91 97 Oxygen Delivery Method Nasal Cannula Nasal Cannula Oxygen Flow Rate (L/min) 2 2 11/03/23 12:45 11/03/23 13:51 11/03/23 14:00 Temperature Temperature Source Pulse Rate 91 84 83 Respiratory Rate 20 H 20 H 21 H Respiratory Effort Respiratory Depth Respiratory Pattern Blood Pressure 140/50 H 114/98 H 114/98 H Blood Pressure Mean 80 103 103 Pulse Ox 97 97 94 Oxygen Delivery Method Nasal Cannula Nasal Cannula Nasal Cannula Oxygen Flow Rate (L/min) 2 2 2 11/03/23 14:15 11/03/23 15:00 11/03/23 15:01 Temperature 97.2 F L 98.1 F 97.6 F L Temperature Source Temporal Oral Pulse Rate 83 83 83 Respiratory Rate 20 H 19 H 20 H Respiratory Effort Respiratory Depth Respiratory Pattern Blood Pressure 116/88 H 116/88 H 116/88 H Blood Pressure Mean 97 97 97 Pulse Ox 94 95 95 Oxygen Delivery Method Room Air Oxygen Flow Rate (L/min) Weight Weight: 146 lb Body Mass Index (BMI) 26.6 Physical Exam Narrative Physical Examination: General: Awake, alert, oriented x 3 and cooperative, seated upright in the ED bed, fatigued, mildly increased respiratory rate but no distress. Skin: Normal color, normal turgor, no icterus, no cyanosis except for notable bilateral lower extremity venous stasis skin changes, occasional abrasion. HEENT: AT/NC, EOMI, PERRLA, dry MM, no carotid bruits or JVD noted. Lungs: Diminished, greater bases, mildly increased respiratory rate but no distress, no rales, ronchi or wheezing. Heart: Regular rate and rhythm; no gallop, rub audible. Abdomen: Soft, overweight, mild generalized abdominal discomfort worse left lower quadrant with some voluntary guarding but no rebound, mildly distended tympanitic, hyperactive BS, no appreciated HSM. Extremities: No cyanosis, no clubbing, significant pedal to knee bilateral 2+ pitting edema. Neurological: Patient awake, alert, oriented as noted, cognitive function intact; pupils equally reactive to light and accommodation, cranial nerves grossly normal, moving all 4 extremities, no focal deficits, strength moderatelyto severely global decreased. Psychiatric: Affect appears fatigued, no acute evidence of depressive or anxietyfeelings. Results Lab / Micro Data 11/03/23 12:50 11/03/23 12:50 Labs: Laboratory Results - last 24 hr 11/03/23 12:50: WBC 5.9, RBC 2.97 L, Hgb 9.3 L, Hct 28.9 L, MCV 97.3, MCH 31.3, MCHC 32.2, RDW Std Deviation 63.7 H, RDW Coeff of Ha 17.9 H, Plt Count 194, MPV10.2, Immature Gran % (Auto) 0.300, Neut % (Auto) 63.5, Lymph % (Auto) 20.1, [place] % (Auto) 14.3 H, Eos % (Auto) 1.5, Baso % (Auto) 0.3, Absolute Neuts (auto)3.7, Absolute Lymphs (auto) 1.18, Nucleated RBC % 0, Sodium 141, Potassium 2.6 L*, Chloride 99, Carbon Dioxide 36.0 H, Anion Gap 6, BUN 62 H, Creatinine 1.25 H, Estim Creat Clear Calc 28.84, Est GFR (MDRD) Af Amer 52 L, Est GFR (MDRD) Non-Af 43 L, BUN/Creatinine Ratio 49.6 H, Glucose 112 H, Calcium 8.6, Troponin I High Sens 17, B-Natriuretic Peptide 310.7 H 11/03/23 13:20: Urine Color Yellow, Urine Clarity Sl. Cloudy, Urine pH 7.0, Ur Specific [place] 1.005, Urine Protein Negative, Urine Glucose (UA) Normal, UrineKetones Negative, Urine Occult Blood Negative, Urine Nitrite Negative, Urine Bilirubin Negative, Urine Urobilinogen Normal, Ur Leukocyte Esterase 100 H, Urine RBC 0 SEEN, Urine WBC 0-5 SEEN, Ur Squamous Epith Cells 0 SEEN, Urine Bacteria 2+, Urine Mucus 0 SEEN Imaging Radiology Impression Abdomen/Pelvis CT 11/03/23 12:56 IMPRESSION: Findings AP with a mild degree of sigmoid diverticulitis. Stable appearance of the right kidney with atrophy and mass in the upper pole. Scattered left nonobstructive intrarenal calculi. Electronically Signed: Ramos Jolley MD at 13:40 EDT , Chest X-Ray 11/03/23 14:02 IMPRESSION: Hyperinflation. Stable mild scarring at the lung bases. No acute abnormality is seen. Electronically Signed: Ramos Jolley MD at 14:38 EDT , 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-3L NC), Hx TIA, Chronic BLLE edema, RLS, PAD, recent discharge from TCU following admission for respiratory failure secondary to post-COVID, Acute HFpEF who now re-presents to the [facility] ED on 11/03/23 with history of persistent bilateral flank discomfort, abdominal cramping diffusely as well as diarrhea in addition to ongoing bilateral lower extremity swelling and shortness of breath more pronounced on day of presentation with flank pain described as aching and worsened by activity rated 8-10 out of 10 in severity with recent discharge from transitional care 10/15/2023 with reported urinary urgency which is her baseline with no recent weight gain with PCP prescription for tizanidine for concern of muscle spasms with doses the evening prior as well as at 2 AM and 4 AM without relief recentlytaken off of oxycodone from palliative care secondary to nausea with history of previous kidney stones but given ongoing discomfort prompted ED evaluation. #1. Acute Diverticulitis: Will admit to MS, maintain on judicious hydration, monitor I&Os, allow clears until improving, treat with rocephin and flagyl regimen as initiated in the ED, anti-emetics, pain regimen PRN. Consider diet advancement in AM if clinically improved. #2. Questionable Acute Urinary Tract Infection: UA upon ED evaluation minimallyremarkable, pending UCx, monitor I/Os, continue IV Rocephin w/ transition as able pending sensitivities and speciation. #3. Hypokalemia: Admission K+ 2.6, magnesium level requested, supplementation given, repeat level in AM. #4. Chronic normocytic anemia/iron deficiency anemia: Admission hemoglobin 9.3,MCV 97.3, baseline hemoglobin primarily more recently 8-9, will continue to trend, continue iron supplementation. #5. BL Flank discomfort w/ History nephrolithiasis, noted nonobstructive calculi, possible UTI as noted but more suspicious for musculoskeletal etiology:CT abdomen and pelvis with noted nephrolithiasis but not marked appearing and noevidence of any obstructive process, again patient flank discomfort reproducibleand more consistent with musculoskeletal etiology. #6. Chronic Kidney Disease Stage III, unclear subtype: Admission BUN/Cr 62/1.25, baseline renal function primarily 1.1-1.4, repeat BMP in AM. #7. HFpEF: 09/04/2023 echocardiogram with normal LV, LV systolic function normal, EF 70%, PASP 30 mmHg. Will judiciously hydrate given history, will continuepatient Plavix, statin, Coreg, losartan, Lasix home regimen. #8. Hypertension: Continue home regimen including Coreg, Lasix, losartan, PRN hydralazine. #9. Hyperlipidemia: We will continue patient home statin therapy. #10. 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 #11. PAD: We will continue patient home Plavix, statin, hypertensive regimen asnoted. #12. History of TIA: We will continue patient Plavix, statin, hypertensive regimen as noted. #13. Chronic bilateral lower extremity lymphedema/edema: Will place neck Diana wraps. #14. Restless leg syndrome: Will continue patient on pramipexole regimen. #15. GERD: We will continue patient on PPI. #16. DVT prophylaxis: Heparin. #17. CODE status: Patient SRAVANI is her daughter who is present and living will is currently in place. Discussed CODE status at length including difference between FULL code, DNR-CCA and DNR-CC status. Following discussions about the differences in these status, requested DNR-CCA, no intubation status. Advanced Care Planning Face to Face Time: 16 minutes. Charges/Coding Visit Charges Inpatient E&M: 18971 Init Hosp L3 Procedures Hospitalists Procedures: 28453 Advncd Care Plan 30 Min 11/03/237 <Electronically signed by Pema Sal MD> Cosigner Signature (if applicable): CC: Dr. Pema Sal MD; Dr. Mady Dunn MD~ Signed [facility] Work Phone: [phone]) 567-406604-17-2024 Miscellaneous Notes* Telephone Encounter - Katina Mendiola LPN - 11/02/2023 12:30 PM EDT Patients daughter notified and voiced her understanding. * Telephone Encounter - Lisy Flynn MA - 11/02/2023 12:24 PM EDT Left message for return call. * Telephone Encounter - Mady Dunn MD - 11/02/2023 11:45 AM EDT Noted offer for low dose muscle relaxant The following approved medication requests have been transmitted electronically. Requested Prescriptions Signed Prescriptions Disp Refills tiZANidine (ZANAFLEX) 2 mg tablet 20 tablet 0 Sig: Take 1 tablet by mouth every 6 hours as needed (muscle spasm). Authorizing Provider: MADY DUNN MD * Telephone Encounter - Natali Mcintosh RN - 11/02/2023 11:00 AM EDT Pt calling in again regarding muscle relaxant. Please call pt when prescription has been sent to [facility] pharmacy. Explained Rosaura is out today and will send to Dr. Dunn. * Telephone Encounter - Virgie Herbert RN - 11/02/2023 10:42 AM EDT Rosaura Suárez CNP-Please see previous note below as well. [facility] Nurse Janice calling to update Rosaura Suárez CNP that: Patient's lower extremity edema is not improving. Pt continues the Lasix 40 mg bid. HH will draw ordered labs for patient, this Tuesday. Janice would like Rosaura/PCP Team to know that patient was admitted to [facility] on10/26/23. Pt was ordered oxycodone 5mg every 8 hours PRN for pain by Palliative Care. Pt told Janice on Monday 10/30 that the oxycodone did not help her pain and made her dizzy and nauseated. Unsureif Rosaura still wants to order low dose muscle relaxer? Per Janice, OT visited pt yesterday and her BP before OT was 88/45 and after OT it was 87/43. Please call [facility] Nurse Janice with any new orders or recommendations for patient. [phone] Thank you. * Telephone Encounter - Diann Nascimento LPN - 11/01/2023 4:37 PM EDT PATIENT NOTIFIED OF SAME. She has not been taking the losartan and will stop the coreg. Will call nurse and ask her to recheck blood pressure on Tuesday with lab draw. Patient is willing to try low dose muscle relaxer to see if that would help improve her back pain. * Telephone Encounter - Rosaura Suárez APRN.CNP - 11/01/2023 4:23 PM EDT Discontinue the losartan and the coreg to help blood pressure. Looks like [facility] is planning to draw labs on Tuesday this week. For her back pain, she was previously prescribed a muscle relaxer, we can try a low dose of a muscle relaxer and see if helpful but I would want to avoid higher doses because it might lower blood pressure more. Does she want to try a low dose? * Telephone Encounter - Helena Quevedo RN - 11/01/2023 4:02 PM EDT Hermelinda with [facility] calls to give update from when she saw patient this morning BP and HR at start ofvisit was 87/43 and 72 and at end of visit was 85/43 and 73. Asymptomatic. Remains on oxygen at 2 LPM via NC SPO2 91-92%. Call placed to patient. Patient reports her main symptom of concern is back pain. Current weight 150 lbs. Patient reports no change in SOB. Denies cough. Patient reports swelling in lower extremities is the same as it has been for the past week. Helena Quevedo RN * Telephone Encounter - Maddison Renteria APRN.PRODUCE ASSISTANT - 10/31/2023 4:32 PM EDT Will defer additional diuretic management to Rosaura when she returns tomorrow. Continue with Lasix aspreviously ordered. She looked to be dehydrated on her most recent lab work. For now recommend lower extremity elevation, compression socks or wraps if able to wear. Avoid excess sodium in diet, 2 g or less. Okay to get lab work with [facility]. She may need periodic lab work until she is feeling improved. Latest Ref Rng 10/25/2023 WBC 3.70 - 11.00 k/uL 7.78 RBC 3.90 - 5.20 m/uL 3.07 (L) Hemoglobin 11.5 - 15.5 g/dL 9.5 (L) Hematocrit 36.0 - 46.0 % 30.5 (L) MCV 80.0 - 100.0 fL 99.3 MCH 26.0 - 34.0 pg 30.9 MCHC 30.5 - 36.0 g/dL 31.1 RDW-CV 11.5 - 15.0 % 18.8 (H) Platelet Count 150 - 400 k/uL 212 MPV 9.0 - 12.7 fL 10.7 Neut% % 57.4 Abs Neut (ANC) 1.45 - 7.50 k/uL 4.47 Lymph% % 24.2 Abs Lymph 1.00 - 4.00 k/uL 1.88 [place]% % 13.5 Abs [place] <0.87 k/uL 1.05 (H) Eosin% % 3.7 Abs Eosin <0.46 k/uL 0.29 Baso% % 0.4 Abs Baso <0.11 k/uL 0.03 Immature Gran % % 0.8 IMMATURE GRANS (ABS) <0.10 k/uL 0.06 NRBC /100 WBC 0.0 Absolute nRBC <0.01 k/uL <0.01 DTYPE Auto Protein, Total 6.3 - 8.0 g/dL 6.2 (L) Albumin 3.9 - 4.9 g/dL 3.6 (L) Calcium 8.5 - 10.2 mg/dL 7.6 (L) Bilirubin, Total 0.2 - 1.3 mg/dL 0.3 Alkaline Phosphatase 34 - 123 U/L 91 AST 13 - 35 U/L 30 ALT 7 - 38 U/L 16 Glucose 74 - 99 mg/dL 97 BUN 7 - 21 mg/dL 54 (H) Creatinine 0.58 - 0.96 mg/dL 1.59 (H) Sodium 136 - 144 mmol/L 140 Potassium 3.7 - 5.1 mmol/L 3.5 (L) Chloride 97 - 105 mmol/L 96 (L) CO2 22 - 30 mmol/L 29 Anion Gap 9 - 18 mmol/L 15 eGFR >=60 mL/min/1.73m 32 (L) Magnesium 1.7 - 2.3 mg/dL 1.1 (L) Vitamin D 25 Hydroxy 31.0 - 80.0 ng/mL 54.3 NT Pro BNP <450 pg/mL 464 (H) * Telephone Encounter - Helena Quevedo RN - 10/31/2023 3:10 PM EDT Janice patch sander with [facility] calls to let provider know that they will be going back to see patient on Tuesday11/04/2023 and will draw labs at that time if ok with provider. Janice reports that patient is taking Lasix as ordered. Edema bilateral lower extremities remains 2+. Current weight is 150 lbs which is a 2 lb weight gain since last week. Helena Quevedo RN * Telephone Encounter - Ligia Tierney LPN - 10/31/2023 3:01 PM EDT Pt's daughter is calling to ask if lab orders can be sent to [facility] since a nurse come out to pt's house. Daughter is also asking if labs are going to be needed each week since labs were abnormal. Ligia Tierney LPN documented in this encounterP[facility]04-11-2024 Miscellaneous Notes* Telephone Encounter - Tiera Doyle LPN - 10/27/2023 3:09 PM EDT Faxed received from [facility], Palliative Provider Note. Provided to Dr. Delvalle for next office visit to review and uploaded to [facility] via Scanned Docs using [employer]. Tiera Doyle LPN documented in this encounterPike [facility] Hospital04-11-2024 Miscellaneous Notes* Telephone Encounter - Hannah Davila LPN - 10/27/2023 1:38 PM EDT Spoke with Janice, nurse @ [facility] and gave her providers message and she verbalized understanding. * Telephone Encounter - Maddison Renteria APRN.PRODUCE ASSISTANT - 10/27/2023 11:28 AM EDT Anemia is present. BUN and creatinine are trending upward. BNP trending downward. Calcium trending downward Magnesium is low Vitamin D is normal. Appears she is not getting enough fluid intake. This could account for her low blood pressures and increased BUN and creatinine. Aim for 64 ounces/day. No further Zaroxolyn for now Continue Lasix 40 mg twice daily. Supplemental magnesium ordered. This is possible cause for low calcium. She is anemic status post EGD with Dr. Real. Erosive esophagitis with bleeding treated with heater probe. Check to see if taking iron supplementation. If not should resume. Recommend magnesium supplementation. Prescription sent. Recommend compression socks, mild 10 to 20 mmHg. On in a.m. off in p.m. Recheck labs in 1 week. Video visit one week after labs obtained if willing Latest Ref Rng 09/02/2023 10/19/2023 10/25/2023 WBC 3.70 - 11.00 k/uL 7.78 RBC 3.90 - 5.20 m/uL 3.07 (L) Hemoglobin 11.5 - 15.5 g/dL 9.5 (L) Hematocrit 36.0 - 46.0 % 30.5 (L) MCV 80.0 - 100.0 fL 99.3 MCH 26.0 - 34.0 pg 30.9 MCHC 30.5 - 36.0 g/dL 31.1 RDW-CV 11.5 - 15.0 % 18.8 (H) Platelet Count 150 - 400 k/uL 212 MPV 9.0 - 12.7 fL 10.7 Neut% % 57.4 Abs Neut (ANC) 1.45 - 7.50 k/uL 4.47 Lymph% % 24.2 Abs Lymph 1.00 - 4.00 k/uL 1.88 [place]% % 13.5 Abs [place] <0.87 k/uL 1.05 (H) Eosin% % 3.7 Abs Eosin <0.46 k/uL 0.29 Baso% % 0.4 Abs Baso <0.11 k/uL 0.03 Immature Gran % % 0.8 IMMATURE GRANS (ABS) <0.10 k/uL 0.06 NRBC /100 WBC 0.0 Absolute nRBC <0.01 k/uL <0.01 DTYPE Auto Protein, Total 6.3 - 8.0 g/dL 5.3 (L) 6.3 6.2 (L) Albumin 3.9 - 4.9 g/dL 3.1 (L) 3.6 (L) 3.6 (L) Calcium 8.5 - 10.2 mg/dL 8.9 8.4 (L) 7.6 (L) Bilirubin, Total 0.2 - 1.3 mg/dL 0.5 0.4 0.3 Alkaline Phosphatase 34 - 123 U/L 67 89 91 AST 13 - 35 U/L 29 40 (H) 30 ALT 7 - 38 U/L 25 19 16 Glucose 74 - 99 mg/dL 136 (H) 103 (H) 97 BUN 7 - 21 mg/dL 49 (H) 38 (H) 54 (H) Creatinine 0.58 - 0.96 mg/dL 1.45 (H) 1.30 (H) 1.59 (H) Sodium 136 - 144 mmol/L 139 141 140 Potassium 3.7 - 5.1 mmol/L 5.4 (H) -- 3.5 (L) Chloride 97 - 105 mmol/L 102 100 96 (L) CO2 22 - 30 mmol/L 25 21 (L) 29 Anion Gap 9 - 18 mmol/L 12 20 (H) 15 eGFR >=60 mL/min/1.73m 35 (L) 40 (L) 32 (L) NT Pro BNP <450 pg/mL 749 (H) 704 (H) 464 (H) Magnesium 1.7 - 2.3 mg/dL 1.1 (L) Vitamin D 25 Hydroxy 31.0 - 80.0 ng/mL 54.3 * Telephone Encounter - Hannah Davila LPN - 10/27/2023 11:03 AM EDT Patient had labs done Tuesday10/25/23 here at [facility]. * Telephone Encounter - Maddison Renteria APRN.CNS - 10/27/2023 8:19 AM EDT Need lab results * Telephone Encounter - Christina Campbell RN - 10/26/2023 3:22 PM EDT See previous note from Janice nurse @ [facility]. WESLEY Urrutia @ [facility] calling with today's BP readings. Before therapy BP was 101/46 and after therapy BP was 88/46. Patient had no symptoms. Christina Campbell RN * Telephone Encounter - Giselle Adame LPN - 10/26/2023 2:26 PM EDT Janice from [facility] returned call and went over notes from Maddison Renteria AUDIO SPECIALIST. Patient weights 10/22 145 pounds, 10/23 148 pounds, 10/24 146 pounds, 10/25 150 pounds. She has no shortness of breath,has no compression hose, but does elevate her feet when she is up. Her blood pressure still runninglow, Tuesday 88/44 and today was 104/59. Janice said the lab results should have been sent to PCP from yesterday. Patient said her voiding has not been as good as first day she took the Zaroxolyn. * Telephone Encounter - Betty Duckworth RN - 10/25/2023 4:47 PM EDT Labs still in process, only taken at 1617. Called and left a detailed voicemail notifying Joaquin from [facility] and Kendra OLSON from [facility] of providers message. Clinic phone number was left in for them to call and answer providers questions. Betty Duckworth RN * Telephone Encounter - Maddison Renteria APRN.CNS - 10/25/2023 4:17 PM EDT Do we have lab reports back yet? What has her weight been the last three days? Is she putting out urine with the lasix and zaroxolyn? Is she short of breath? Can she elevate feet when seated? * Telephone Encounter - Dayan Ibarra LPN - 10/25/2023 8:54 AM EDT Spoke with Kendra and information regarding blood pressure was given. Spoke with Janice and information below given to her. - pt would like to do Speech therapy at home thru . -pt is taking the Zaraxolyn along with the Lasix. -pt has a lab apt today for our lab Dayan Ibarra LPN * Telephone Encounter - Hannah Davila LPN - 10/24/2023 5:01 PM EDT No answer. Left message for Kendra OT from [facility] to call office and ask to speak to a nurse regarding patient. * Telephone Encounter - Maddison Renteria APRN.CNS - 10/24/2023 4:21 PM EDT Okay for speech therapy. Did she want to do that in the home or at the hospital/clinic. Check to see if taking Lasix 40 twice daily along with the Zaroxolyn. If not should be doing so. Should be getting lab work tomorrow. She continued down through home care or here at the clinic? Note blood pressures. Continue to monitor for now. * Telephone Encounter - Brittney Soares LPN - 10/24/2023 11:15 AM EDT Janice from [facility] adding to below. Edema has not improved over the weekend with the Zaroxolyn. 4 lb weight gain. She is also c/o feeling full and gagging on food. Do you want to Order Speech Therapy? * Telephone Encounter - Janice Jessica RN - 10/24/2023 8:54 AM EDT Kendra OLSON from [facility] calls to report blood pressure that is out of parameters. When patient had started OT at 8 am patient's blood pressure was 98/47. At 8:45 after shower patient's blood pressure was99/51. Patient did complain of some dizziness/lightheadedness. Patient had taken her blood pressure at 7:15 this morning before taking morning medication. Patient's blood pressure was 106/51. Patient is on fluid restriction. Please review and advise, Janice Jessica RN documented in this encounterPike [facility] Hospital04-08-2024 Miscellaneous Notes* Telephone Encounter - Alina Delvalle MD - 10/24/2023 3:29 PM EDT Left voicemail to increase nighttime oxygen to 4 L. documented in this encounterPike Community Hospital04-05-2024 Miscellaneous Notes* Telephone Encounter - Brittney Soares LPN - 10/21/2023 2:06 PM EDT Janice prasad. * Telephone Encounter - Rosaura Suárez APRN.CORINNA - 10/21/2023 1:34 PM EDT Labs are back and confirm heart failure is flared up right now, to help reduce her fluid load I am sending in for her to take zaroxolyn 5 mg every other day for x4 doses (this will be over 8 days total). Take this pill first and then about 30 min. Later take the Lasix, please verify she is taking Lasix as 40 mg twice daily. [place] would be to take the first dose of zaroxolyn today but if not able it is okay to start tomorrow. She should get repeat labs done on Tuesday to recheck kidneys, potassium and pro BNP to make sure this is resolving. I can forward this to Maddison so she is aware to watch for results with me being out of the office. Please let patient and HHC know. Thanks! * Telephone Encounter - Dayan Ibarra LPN - 10/21/2023 1:02 PM EDT Janice with [facility] calling to let you know she saw pt today and the swelling in both legs has gotten a little worse. Pt now hs a cough and she is getting up a pail yellow mucous. Janice hearinga little fine crackling in left lower lobe. Pt's oxygen is at 96% on 2 L. Heart rate at 104, vital signs BP 140/56, temp 98.2 and resp at 20. Pt has not taken anything for cough. If anything is called in pt's phamacy of choice is [facility] [place]. Janice would like to have a call back regarding pt. Dayan Ibarra LPN documented in this encounterPike [facility] Hospital04-04-2024 Miscellaneous Notes* Telephone Encounter - Hannah Davila LPN - 10/20/2023 12:41 PM EDT Spoke with Janice- [facility] and gave her providers message and she verbalized understanding. * Telephone Encounter - Mady Dunn MD - 10/19/2023 8:52 PM EDT Stay off spironolactone since has not been taking and has had issues with renal insufficiency (BUN and Cr high) and potassium level high in August. Noted problem with measuring potassium on labs done today BUN and Cr improved so eGFR up to 40. Keep up efforts at hydration Albumin improved to 3.6 from 3.1--keep getting enough protein in diet Calcium level slightly low--verify getting calcium in diet and/or pills Would recheck after another 2 to 4 weeks depending on how she is doing. Sooner if not feeling well and need to recheck kidney function and electrolytes. Filed lab orders so can do in 2 to 4 weeks. * Telephone Encounter - Dayan Ibarra LPN - 10/19/2023 11:10 AM EDT Janice called back and pt has not been taking the Spironolactone since 09/02/23. Please advise if pt is to be taking this. Dayan Ibarra LPN * Telephone Encounter - Betty Duckworth RN - 10/18/2023 9:15 AM EDT Called and left a detailed voicemail notifying Alex [facility] of providers message. Clinicphone number was left for her to call back and answer the providers questions. Betty Duckworth RN * Telephone Encounter - Mady Dunn MD - 10/17/2023 7:41 PM EDT The last RX was from last year September 24 for 60 with 5 refills. So refills would have run out by now. Clarify how she was taking it (once or twice daily? Just as needed? Was she taking it till was in hospital then it never go started back again?) * Telephone Encounter - Geri Marte MA - 10/17/2023 2:09 PM EDT Spoke with Janice regarding below. She will check about following up with cardiology regarding asa. Note the correction to the below, pt DOES HAVE spironolactone 25 mg at home, but it is NOT on her active med list. Per [email or web address], PCP was managing and prescribing last. Last RX was spironolactone 25 mg BID on 09/24/22. No orders for follow up k+ labs. Geri Marte MA * Telephone Encounter - Mady Dunn MD - 10/17/2023 12:54 PM EDT 1) Noted--can have both so may use nebulizer if not able to use inhaler 2) Noted--still okay to have both meds 3) Noted 4) Discharge summary d/c'd aspirin since was not given while in TCU. Is patient following with cardiology? 5) Did not see spironolactone on discharge summary. Not on list to stop either. Is on our med list but not on Medication Dispense History/. Who was managing this before? Noted potassium was low and she was given potassium pills. When will lab get done for follow up? Any place orders? * Telephone Encounter - Perlita Cedeño RN - 10/17/2023 11:17 AM EDT Janice- [facility] SN- reporting POC: admitted patient this morning and plans to see patient 2 x's week for 2 weeks, then 1 x week for 2 weeks, and will have phone call visit with patient in a few days, since patient high risk for re- admission d/t hx of frequent hospital visits. Janice has questions: 1) Drug interaction noted as duplicate therapy with albuterol nebulizer and albuterol inhaler. 2) Drug to drug interaction noted b/t coreg and albuterol: severity level 2. 3) FYI: pulmonary ordered brozana nebulizer. It is not in the home yet. 4) Aspirin is not on d/c med list, and they know hospital gave patient aspirin while in the hospital. Asking if pcp wants patient to take aspirin since patient is taking plavix? 5) Spironalactone 25 mg is on med list. Patient does not have in the home. Should patient be takingthis? Please phone Janice with reply: [phone] documented in this encounterPike Community Hospital04-03-2024 Miscellaneous Notes* Telephone Encounter - Christina Campbell RN - 10/19/2023 2:42 PM EDT WESLEY Gardner @ [facility] calling with plan of care. Occupational Therapy will see patient 1 x/ week for oneweek, 2 x/week for two weeks, and 1 x/week for one week with goals of energy conservation and oxygen trampoline team coach. If agree, no call back needed. Christina Campbell RN documented in this encounterPike Community Hospital04-03-2024 History of Present illness Narrative* Rosaura Suárez APRN.YARD CRANE OPERATOR - 10/19/2023 11:21 AM EDT Images from the original note were not included. Transitional Care Management Progress Note The patients TCM visit was performed within the 7 days of discharge. TCM Eligibility Documentation The following information was gathered during the initial Patient Outreach Encounter. No data to display If no data exists please enter it manually. If data exists please delete date of discharge and dateof initial contact seen below. Patient's Date of discharge: 10/14 Date of initial coordinator contact after discharge: 10/16 Discharge diagnosis: acute hypoxic respiratory failure, COPD, acute heart failure Medication review completed Yes Rosaura Suárez APRN.YARD CRANE OPERATOR Provider Documentation: In follow-up of hospitalization, Dick Artis is a 88 year old female with the chief complaint of hospital discharge follow up. I have reviewed the patient s last hospital course including diagnostic testing performed during this hospitalization, their discharge medications, and my assessment and plan with the patient and anyfamily members present at today s visit. HPI: Emerson is a 88 year old established patient of Mady Dunn MD. Here today for a hospital discharge follow up. She was discharged from [facility] TCU 10/14. Dsicharged with orders for HHC, PT/OT/SN. Diagnosis of COPD exacerbation, acute hypoxic resp failure, acute hfpef. Initially went to the hospital for concerns of pain in her back related to her spinal stenosis, got influenza while hospitalized, developed bronchiolitis, respirtory failure with intermittent BIPAP, NSTEMI, diastolic HF, steroid-induced diabetes and a diverticulosis flare. She was found to be iron def. Started on iron. Since being home she is not sleeping well. Trazodone in the past not helpful. On 2 l/m runny nose, no humidification. HHC from [facility] and getting eval OT and PT. Appetite is okay, moving bowels well.Back pain is bothersome when active. Tylenol helps some. PAST MEDICAL HISTORY: Reviewed and updated PAST MEDICAL HISTORY Diagnosis Date Basal cell carcinoma Carotid stenosis CEA left Chronic hypoxemic respiratory failure (HCC) CKD (chronic kidney disease) stage 3, GFR 30-59 ml/min ([facility]) 07/30/2018 COPD (chronic obstructive pulmonary disease) ([facility]) Diastolic heart failure (HCC) Diverticulosis of colon (without mention of hemorrhage) Diverticulosis Hypertension Rolly Smith MD NSTEMI (non-ST elevated myocardial infarction) ([facility]) Osteoporosis, unspecified Personal history of colonic polyps Colon polyps Restless legs syndrome (RLS) Spinal stenosis TIA (transient ischemic attack) 2008 Plavix Type 2 diabetes mellitus with hyperglycemia, without long-term current use of insulin ([facility]) 10/19/2023 ALLERGIES: Reviewed and updated ALLERGIES Allergen Reactions Amlodipine Swelling Lower leg edema. Aspirin Unknown Lisinopril Cough Requip [Ropinirole] Other: See Comments Very anxious MEDICATIONS: Reviewed and updated Current Outpatient Medications Medication Sig arformoterol (BROVANA) 15 mcg/2 mL nebulizer solution Inhale 2 mL as instructed every 12 hours. iron polysaccharide complex (FERREX-150) 150 mg iron capsule Take 150 mg by mouth once daily. POTASSIUM CHLORIDE ORAL Take 40 mEq by mouth once daily. clotrimazole/betamethasone dip (LOTRISONE TOPICAL) Apply 1 Application to affected area two times aday. dextromethorphan-guaiFENesin (MUCINEX DM) 30-600 mg per tablet Take 2 tablets by mouth two times a day. pantoprazole DR (PROTONIX) 40 mg tablet Take 40 mg by mouth two times a day. ascorbic acid, vitamin C, 500 mg cap Take 500 mg by mouth once daily. acetaminophen (TYLENOL) 500 mg tablet Take 1,000 mg by mouth every 6 hours as needed for pain (EVERY 6 HOURS NEEDED FOR PAIN). pramipexole (MIRAPEX) 0.5 mg tablet Take 1.5 mg by mouth daily at bedtime. MULTIVITAMIN ORAL Take 1 tablet by mouth once daily. albuterol HFA (VENTOLIN HFA) 90 mcg/actuation inhaler Inhale 2 Puffs as instructed every 4 hours asneeded for wheezing/shortness of breath. May take 2 puffs prior to exercise clopidogrel (PLAVIX) 75 mg tablet take 1 tablet daily furosemide (LASIX) 40 mg tablet Take 1 tablet by mouth once daily. pramipexole (MIRAPEX) 1.5 mg tablet Take 1 tablet by mouth daily at bedtime. carvedilol (COREG) 12.5 mg tablet Take 12.5 mg by mouth twice daily. multivitamin with folic acid (THERA, ONE DAILY) 400 mcg Take by mouth. Cholecalciferol, Vitamin D3, 1,000 unit cap Take 1 capsule by mouth once daily. zolpidem (AMBIEN) 5 mg tablet Take 1 tablet by mouth at bedtime as needed for up to 30 days. OXYGEN, HOME THERAPY, 3 L/min by Nasal Cannula route as directed. ipratropium/albuterol sulfate (IPRATROPIUM-ALBUTEROL INHALATION) Inhale 3 mL as instructed once daily as needed (per nebulizer). polyethylene glycol 3350 (MIRALAX) 17 gram/dose powder Take 17 g by mouth once daily. Dissolve dosein 4 - 8 ounces of liquid and take as directed. sennosides (SENNA ORAL) Take 2 tablets by mouth two times a day as needed ( NEEDED FOR CONSTIPATION). losartan (COZAAR) 50 mg tablet Take 0.5 tablets by mouth two times a day. (Patient taking differently: Take 50 mg by mouth once daily.) budesonide (PULMICORT) 0.5 mg/2 mL nebulizer solution USE 1 VIAL IN NEBULIZER EVERY 12 HOURS OVER 5-15 MINUTES atorvastatin (LIPITOR) 40 mg tablet take 1 tablet daily (Patient taking differently: Take 40 mg by mouth daily at bedtime.) baclofen 5 mg tablet ipratropium (ATROVENT) 0.02 % nebulizer solution Use 2.5 mL via nebulizer four times daily as needed. OVER 5-15 MINUTES FOR WHEEZING OR SHORTNESS OF BREATH ipratropium (ATROVENT) 0.02 % nebulizer solution USE 1 VIAL (2.5 ML) VIA NEBULIZER FOUR TIMES A DAYOVER 5 TO 15 MINUTES FOR WHEEZING OR SHORTNESS OF BREATH (Patient taking differently: Use 3 mL via nebulizer two times a day. USE 1 VIAL (2.5 ML) VIA NEBULIZER FOUR TIMES A DAY OVER 5 TO 15 MINUTES FOR WHEEZING OR SHORTNESS OF BREATH) albuterol (PROVENTIL) 2.5 mg /3 mL (0.083 %) nebulizer solution Use 3 mL via nebulizer four times daily. USE 1 VIAL (3 ML) VIA NEBULIZER FOUR TIMES A DAY OVER 5 TO 15 MINUTES FOR WHEEZING AND SHORTNESS OF BREATH (Patient taking differently: Use 2.5 mg via nebulizer every 4 hours as needed. USE 1 VIAL (3 ML) VIA NEBULIZER FOUR HOURS as needed OVER 5 TO 15 MINUTES FOR WHEEZING AND SHORTNESS OF BREATH) No current facility-administered medications for this visit. [...] Never used Substance Use Topics Alcohol use: Not Currently Comment: very seldom Drug use: Never FAMILY HISTORY: Reviewed and updated FAMILY HISTORY Problem Relation Age of Onset Diabetes Mother Heart Mother None Father hx unknown Heart Brother Diabetes Brother Cancer Brother Lung, 1/2 brother. Asthma No Family History COPD No Family History Emphysema No Family History Review of Systems Constitutional: Positive for fatigue. Negative for chills, diaphoresis and fever. Respiratory: Positive for cough and shortness of breath. Negative for apnea, choking, chest tightness and stridor. Cardiovascular: Positive for leg swelling. Negative for chest pain and palpitations. All other systems reviewed and negative, other [...] heart sounds. No murmur heard. Pulmonary: Effort: No accessory muscle usage, prolonged expiration or respiratory distress. Breath sounds: Examination of the right-lower field reveals decreased breath sounds. Examination ofthe left-lower field reveals decreased breath sounds. Decreased breath sounds present. Musculoskeletal: Cervical back: Neck supple. Right lower leg: Edema present. Left lower [...] and memory normal. Judgment: Judgment normal. BP 134/60 Pulse 80 Temp (Src) 97 (Left Tympanic) Resp 28 Wt 148 lb (67.1kg) SpO2 90% 1. I have reviewed the patient record including associated test results during the last hospitalization Yes 2. I have reviewed Lab test Yes 3. I have reviewed Radiology test Yes 4. I reviewed assessment/plan with the patient/family member Yes ASSESSMENT/PLAN 1. Chronic hypoxic respiratory failure, on home oxygen therapy (HCC) - ICD9: 518.83, 799.02, V46.2,ICD10: J96.11, Z99.81 (primary diagnosis) Follow with pulmonary. Add humidification to her home concentrator if able. - DME SUPPLY OR ACCESSORY, NOS 2. COPD with exacerbation (HCC) - ICD9: 491.21, ICD10: J44.1 - DME SUPPLY OR ACCESSORY, NOS 3. Acute on chronic heart failure with preserved ejection fraction (HCC) - ICD9: 428.23, ICD10: I50.33 Check labs today for increased lower leg edema. - NT PRO BNP 4. Chronic bilateral low back pain, unspecified whether sciatica present - ICD9: 724.2, 338.29, ICD10: M54.50, G89.29 5. Other insomnia - ICD9: 780.52, ICD10: G47.09 Trial low dose ambien. - ZOLPIDEM 5 MG TABLET 6. Type 2 diabetes mellitus with hyperglycemia, without long-term current use of insulin (HCC) - ICD9: 250.00, 790.29, ICD10: E11.65 7. Stage 3b chronic kidney disease (HCC) - ICD9: 585.3, ICD10: N18.32 8. Primary hypertension - ICD9: 401.9, ICD10: I10 - Controlled - Continue current medications - Recommend home blood pressure monitoring, to bring results to next visit - Encouraged sodium restriction, DASH or Mediterranean diet - Recommend regular aerobic exercise - FUROSEMIDE 40 MG TABLET 9. Iron deficiency - ICD9: 280.9, ICD10: E61.1 On iron supplementation. 10. Encounter for therapeutic drug monitoring - ICD9: V58.83, ICD10: Z51.81 - CBC + DIFF - COMP METABOLIC PANEL Rosaura Suárez APRN.YARD CRANE OPERATOR [facility] Miscellaneous Notes* Telephone Encounter - Dayan Cornell MA - 10/18/2023 4:00 PM EDT The following approved medication requests have been transmitted electronically. Requested Prescriptions Signed Prescriptions Disp Refills arformoterol (BROVANA) 15 mcg/2 mL nebulizer solution 120 mL 11 Sig: Inhale 2 mL as instructed every 12 hours. Authorizing Provider: ALINA DELVALLE MA * Telephone Encounter - Dayan Cornell MA - 10/18/2023 11:44 AM EDT Rx to go to [facility] instead of [facility]. Pended. Please file. Thank you, Dayan Cornell MA * Telephone Encounter - Autumn Delvalle LPN - 10/17/2023 9:58 AM EDT [facility] nurse called in regards to patient being discharged from [facility] TCU. Nurse states Dr. Delvalle called in prescription for Brovana nebulizer to [facility] pharmacy for patient to product picker upon discharge. [facility] pharmacy does not have that nebulizer available. Nurse is requesting Dr. Delvalle send prescription to [facility] instead. Please review and advise. Autumn Delvalle LPN October 17, 2023 10:01 AM documented in this encounterP[facility]03-27-[facility]24 Discharge summary Author Richy Pierson [facility] October 12, 2023 8:22pm Note Date/Time October 12, 2023 8:1 1pm [facility] Medical Records Department [address] [place] [address] Discharge Summary 10/12/232010 MR#: [id number] Acct: [id number] Name: DICK ARTIS Rep #:[id number] : 1935 88 From: Richy Pierson MD PCP: Dr. Mady Dunn MD Status:AD M IN Location: [place] [address] Providers Date of Admission: 10/05/23 Primary Care Physician: Dr. Mady Dunn MD Consultations 10/12/23 12:32 Consult: Hospice / Palliative Care Routine Consulting Provider: [facility] Reason for Consult: PALLIATIVE CARE - Severe COPD/CHF EMERGENT Consult: No MD Notified: Yes Date Notified: 10/12/23 Time Notified: 12:32 Method of Notification: Text Reason For Visit: HYPOXIA Diagnosis Discharge Diagnosis (1) Debility: Status: Inactive Code(s): R53.81 - Other malaise (2) Right lumbar radiculopathy: Status: Inactive Code(s): M54.16 - Radiculopathy, lumbar region (3) Acute hypoxic respiratory failure: Status: Acute Code(s): J96.01 - Acute respiratory failure with hypoxia (4) Acute on chronic heart failure with preserved ejection fraction (HFpEF): Status: Acute Code(s): I50.33 - Acute on chronic diastolic (congestive) heart failure (5) Non-STEMI (non-ST elevated myocardial infarction): Status: Resolved Code(s): I21.4 - Non-ST elevation (NSTEMI) myocardial infarction (6) COPD (chronic obstructive pulmonary disease): Status: Chronic Code(s): J44.9 - Chronic obstructive pulmonary disease, unspecified (7) Hyperlipidemia: Status: Inactive Code(s): E78.5 - Hyperlipidemia, unspecified (8) TIA (transient ischemic attack): Status: Inactive Code(s): G45.9 - Transient cerebral ischemic attack, unspecified (9) Depression: Status: Acute Code(s): F32.A - Depression, unspecified (10) Iron deficiency anemia: Status: Acute Code(s): D50.9 - Iron deficiency anemia, unspecified (11) GERD (gastroesophageal reflux disease): Status: Acute Code(s): K21.9 - Gastro-esophageal reflux disease without esophagitis (12) RLS (restless legs syndrome): Status: Inactive Code(s): G25.81 - Restless legs syndrome (13) Type 2 diabetes mellitus with hyperglycemia: Status: Acute Code(s): E11.65 - Type 2 diabetes mellitus with hyperglycemia Plan 88 year old female with below past medical history hospitalized for acute respiratory failiure with hypoxia 2/2 acute on chronic HFpEF, pneumonia ruled out, admitted to TCU with debility, here for rehabilitation, strengthening, prior to discharger home alone. * Debility - PT/OT. * Pain - Tylenol 1000mg q6 prn pain (1-10), Arthritis pain compound 2 clicks topical bid. * Bowel - Miralax 17gm daily, senna/colace 2 tablets bid prn. * Adult immunization - Administer pneumonia vaccine, covid vaccine, flu vaccine as appropriate. * DVT prophylaxis - Hold, on dual antiplatelet therapy. * COPD - Budesonide 0.25mg inhaled bid, Duoneb 3ml [id number], Albuterol 2.5mg neb q4h prn. * Coronary artery disease - Carvedilol 12.5mg bid, Losartan 25mg daily, Plavix 75mg daily, Aspirin 81mg daily. * Hyperlipidemia - Atorvastatin 4mg qhs. * HFpEF - Carvedilol 12.5mg bid, Losartan 25mg daily, Furosemide 40mg daily. * Vitamin D deficiency - D3 25mcg daily. * Tinea pedis (left) Lotrisone cream topical bid. * Depression - Duloxetine 30mg bid, stable chronic detention use, GDR not recommended. * Iron deficiency anemia - Ferrex 150mg daily, Vitamin C 500mg daily. * Nutrition - Glucerna Shake 120ml tidcm. * Cough - Robitussin DM 2 tablets bid. * Diabetes Mellitus II - Glargine 15 units daily, Lispro 5 units tidac. * Nutrition - MVI daily. * Esophagitis/Duodenitis - Pantoprazole 40mg bid. * Restless leg syndrome - Mirapex 1.5mg qhs. Medications at Discharge Home Medications atorvastatin 40 mg tablet 40 mg PO QHS cholesterol 02/22/16 clopidogrel 75 mg tablet 75 mg PO DAILY BLOOD THINNER 02/22/16 multivitamin with folic acid 400 mcg tablet 1 tab PO DAILY supplement 02/22/16 albuterol sulfate 90 mcg/actuation aerosol inhaler 2 puff inhalation BID PRN shortness of breath or wheezing 03/16/18 cholecalciferol (vitamin D3) 25 mcg (1,000 unit) tablet 2,500 unit PO DAILY SUPPLEMENT 10/09/18 albuterol sulfate 2.5 mg/3 mL (0.083 %) solution for nebulization 2.5 mg inhalation Q4H PRN shortness of breath or wheezing 05/28/22 ipratropium 0.5 mg-albuterol 3 mg (2.5 mg base)/3 mL nebulization soln 3 ml inhalation Q6H PRN shortness of breath 05/28/22 carvedilol 12.5 mg tablet 12.5 mg PO BID CHOLESTEROL #180 tabs 04/27/23 duloxetine 30 mg capsule,delayed release 30 mg PO BID pain 08/17/23 pramipexole 1.5 mg tablet 1.5 mg PO QHS restless leg syndrome 08/18/23 budesonide 0.5 mg/2 mL suspension for nebulization 0.25 mg inhalation BID breathing 30 days #0 mL 09/09/23 dextromethorphan-guaifenesin 30 mg-600 mg tablet extended [id number] hr (Mucinex DM) 2 tab PO BID cough 7 days #0 tabs 09/09/23 ascorbic acid (vitamin C) 500 mg tablet 500 mg PO 1000 #0 tabs 10/12/23 furosemide 40 mg tablet 40 mg PO BIDCM FLUID RETENTION 30 days #60 tabs 10/12/23 losartan 25 mg tablet 25 mg PO DAILY 30 days #30 tabs 10/12/23 pantoprazole 40 mg tablet,delayed release 40 mg PO BID 30 days #60 tabs 10/12/23 polysaccharide iron complex 150 mg iron capsule (Ferrex) 150 mg PO DAILY 30 days#30 caps 10/12/23 potassium chloride 20 mEq tablet,extended release(part/cryst) 20 meq PO BIDCM 30days #60 tabs 10/12/23 Hospital Course Operations None Procedures None Summary of Care Provided Minutes Spent on Discharge: 35 Hospital Course: 88 year old female with below past medical history hospitalized for acute respiratory failiure with hypoxia 2/2 acute on chronic HFpEF, pneumonia ruled out, admitted to TCU with debility, here for rehabilitation, strengthening, prior to discharge home alone. Discharge home 10/15/2023, [facility] PT/OT/SN, BSC, Rollator. BSC: Patient is unable to access bathroom safely and requires a BSC. Rollator: Patient is unsafe with a cane and requires frequent rest breaks that can be resolved with use of a rollator for ambulation in the home and the community. Physical Exam Const alert General Appearance: cooperative HEENT normocephalic Eyes PERRL and EOMs intact bilaterally Neck supple, no JVD and no carotid bruits Resp normal respiratory effort, normal air movement and clear to auscultation bilaterally Auscultation: crackles left base and wheezes Cardio regular rate and regular rhythm GI normal to inspection, nondistended, normoactive bowel sounds, non-tender and non-distended Extremity normal capillary refill General Extremity: Negative for edema Skin no rashes or lesions noted General Skin Exam: no breakdown Psych affect normal Appearance: appropriate Weight / BMI Weight Weight: 67.857 kg Body Mass Index (BMI) 27.3 ABG / Lab / Microbiology Data 10/07/23 05:43 10/12/23 05:31 Laboratory: Laboratory Results - last 24 hr 10/12/23 05:31: Sodium 142, Potassium 3.1 L, Chloride 104, Carbon Dioxide 33.0 H, Anion Gap 5, BUN 46 H, Creatinine 1.41 H, Estim Creat Clear Calc 25.86, Est GFR (MDRD) Af Amer 46 L, Est GFR (MDRD) Non-Af 38 L, BUN/Creatinine Ratio 32.6 H, Glucose 108 H, Calcium 8.0 L D/C Instructions Discharge Diet: No restrictions Discharge Activity: Return to Normal Activity, May Shower and Use Walker Weight Bearing Status: Weight bearing as tolerated Call your doctor if you observe: Fever of 101 or Higher, Inability to urinate, Inability to have a bowel movement, Shortness of breath, Dizziness, Fainting spells, Swelling in the ankles, Chest pain and Uncontrolled pain Additional Instructions: Discharge home 10/15/2023, [facility] PT/OT/SN, BSC, Rollator. BSC: Patient is unable to access bathroom safely and requires a BSC. Rollator: Patient is unsafe with a cane and requires frequent rest breaks that can be resolved with use of a rollator for ambulation in the home and the community. Please Follow Up With: Hard Hat Diver, [facility] When: DINESH. Meaningful Use Info Meaningful Use Diagnoses (Choose all that apply): None applicable Discharge Plan Admission Admit Date/Time: 10/05/23 11:04 Primary Reason for Your Visit: Debility. Attending Provider: Richy Pierson Chi Primary Care Provider: Mady Dunn Consulting Providers: Jorje Bey; Sharron Bland; Maria T Dougherty; Irma Santiago AUDIO SPECIALIST Instructions Additional Instructions / Restrictions: Discharge home 10/15/2023, [facility] PT/OT/SN, BSC, Rollator. BSC: Patient is unable to access bathroom safely and requires a BSC. Rollator: Patient is unsafe with a cane and requires frequent rest breaks that can be resolved with use of a rollator for ambulation in the home and the community. Discharge Orders/Prescriptions Prescriptions: New polysaccharide iron complex [Ferrex 150] 150 mg iron Capsule 150 mg PO DAILY 30 Days Qty: 30 0RF potassium chloride 20 mEq Tablet,Er Particles/Crystals 20 meq PO BIDCM 30 Days Qty: 60 0RF ascorbic acid (vitamin C) 500 mg Tablet 500 mg PO 1000 Qty: 0 0RF pantoprazole 40 mg Tablet,Delayed Release (Dr/Ec) 40 mg PO BID 30 Days Qty: 60 0RF losartan 25 mg Tablet 25 mg PO DAILY 30 Days Qty: 30 0RF Continued cholecalciferol (vitamin D3) 1,000 unit tablet 2,500 unit PO DAILY albuterol sulfate 2.5 mg /3 mL (0.083 %) solution for nebulization 2.5 mg inhalation Q4H PRN (Reason: shortness of breath or wheezing) ipratropium-albuterol 0.5 mg-3 mg(2.5 mg base)/3 mL solution for nebulization 3 ml inhalation Q6H PRN (Reason: shortness of breath) duloxetine 30 mg capsule,delayed release(DR/EC) 30 mg PO BID atorvastatin 40 MG tablet 40 mg PO QHS clopidogrel 75 MG tablet 75 mg PO DAILY multivitamin with folic acid 1 TABLET tablet 1 tab PO DAILY albuterol sulfate 90 mcg/actuation HFA aerosol inhaler 2 puff INHALATION BID PRN (Reason: shortness of breath or wheezing) Hold Instructions: Order Changed pramipexole 1.5 mg tablet 1.5 mg PO QHS Mucinex DM 30-600 mg Tablet Extended Release 12 Hr 2 tab PO BID 7 Days Qty: 0 0RF budesonide 0.5 mg/2 mL suspension for nebulization 0.25 mg inhalation BID 30 Days Qty: 0 0RF carvedilol 12.5 mg tablet 12.5 mg PO BID Qty: 180 4RF Rx Instructions: must administer with a meal/food Changed furosemide 40 mg tablet 40 mg PO BIDCM 30 Days Qty: 60 3RF Discontinued diclofenac sodium 1 % gel 1 inch TOPICAL DAILY PRN (Reason: unknown) Hold Instructions: not on in tcu Patient Comments: pt using, but unaware of directions polyethylene glycol 3350 17 gram Powder In Packet 17 g PO DAILY Qty: 0 0RF sennosides-docusate sodium [Stool Softener-Stimulant Laxat] 8.6-50 mg Tablet 2 tab PO BID PRN (Reason: constipation) Qty: 0 0RF pantoprazole 40 mg Tablet,Delayed Release (Dr/Ec) 40 mg PO DAILY 30 Days Qty: 30 0RF ferrous sulfate [FeroSul] 325 mg (65 mg iron) Tablet 325 mg PO QODAY@LUNCH Qty: 0 0RF aspirin 81 mg Tablet,Delayed Release (Dr/Ec) 81 mg PO BREAKFAST 30 Days Qty: 30 2RF Hold Instructions: no currently on in Tcu insulin lispro [Humalog KwikPen Insulin] 100 unit/mL Insulin Pen See Protocol subcut ACHS Qty: 0 0RF Protocol: 4. Sliding Scale Insulin High-Med Dosing Condition: 150-199 mg/dl = 2 units Condition: 200-259 mg/dl = 4 units Condition: 260-324 mg/dl = 6 units Condition: 325-374 mg/dl = 8 units Condition: 375-409 mg/dl = 10 units Condition: 410-449 mg/dl = 11 units Condition: Greater than 449 call physician Protocol Text: - Use for Total Daily Dose of Insulin 56-80 units - Patient who are insulin resistant or septic HIGH MEDIUM DOSING ALGORITHM insulin lispro [Humalog KwikPen Insulin] 100 unit/mL Insulin Pen 10 unit subcut TIDAC Qty: 0 0RF insulin glargine [Lantus Solostar U-100 Insulin] 100 unit/mL (3 mL) insulin pen 15 unit subcut DAILY Qty: 15 2RF Rx Instructions: Hold if glucose less than 130 mg/dl dexamethasone 2 mg tablet See Rx Instructions .ROUTE .COMPLEX Qty: 12 0RF Rx Instructions: 2 mg orally twice daily for 3 days and then 2 mg once daily for 3 days, then 1 mg for 6 days and then stop losartan 50 mg tablet 25 mg PO DAILY Qty: 90 3RF Rx Instructions: Hold for SBP less than 130 mmHg Referrals / Follow Up: Mady Dunn MD [Primary Care Provider] - Disposition Disposition (needs filled in before D/C Order can be placed): Home Health Service 10/12/232021 <Electronically signed by Richy Pierson MD> Cosigner Signature (if applicable): CC: Dr. Mady Dunn MD; Dr. Richy Pierson MD~ Signed [facility] Work Phone: [phone]) 924-124803-21-2024 Progress note Author Geri Escobedo [facility] October 06, 2023 4:18pm Note Date/Time October 06, 2023 3:5 2pm [facility] Medical Records Department [address] [place] [address] Progress Note - Pharmacy 10/06/23 1543 MR#: [id number] Acct: [id number] Name: DICK ARTIS Rep #:[id number] : 1935 88 From: Geri Escobedo PCP: Dr. Mady Dunn MD Status:AD M IN Location: TCU [facility] TCU RX Drug Regimen Review Subjective/Objective Subjective/Objective: Subjective: 88 YOF admitted to TCU 10/05/23 s/p hospitalization for pneumonia, heart failure exacerbation. Admitted to TCU for rehabilitation and strengtheningprior to discharge home where she resides alone. Objective: Allergies lisinopril Allergy (Verified 09/03/23 09:41) edema aspirin Adverse Reaction (Verified 09/03/23 09:41) Upset Stomach Current Medications Generic Name Dose Route Start Last Admin Trade Name Freq PRN Reason Stop Dose Admin Acetaminophen 1,000 mg 10/05/23 21:35 Acetaminophen 500 Mg Tablet PO Q6H PRN PRN Pain Score 1-10 Albuterol Sulfate 2.5 mg 10/05/23 11:47 Albuterol 2.5 Mg/3 Ml Vial.Neb. INHALATION Q4H PRN shortness of breath or wheezing Albuterol/Ipratropium 3 ml 10/05/23 17:45 10/06/23 13:35 Ipratropium/Albuterol Sulfate 3 Ml Ampul.Neb INHALATION 3 ml Q6HWA.RT MUSA Administration Ascorbic Acid 500 mg 10/06/23 10:00 10/06/23 08:47 Ascorbic Acid 500 Mg Tablet PO 500 mg 1000 MUSA Administration Aspirin 81 mg 10/06/23 08:00 10/06/23 08:47 Aspirin E.C. 81 Mg Tablet PO 81 mg BREAKFAST MUSA Administration Atorvastatin Calcium 40 mg 10/05/23 22:00 10/05/23 21:58 Atorvastatin Calcium 40 Mg Tablet PO 40 mg QHS MUSA Administration Budesonide 0.25 mg 10/05/23 22:00 10/06/23 07:33 Budesonide Respules 0.5 Mg/2 Ml Ampul.Neb. INHALATION 0.25 mg BID.RT MUSA Administration Carvedilol 12.5 mg 10/05/23 17:00 10/06/23 08:49 Carvedil[facility] 12.5 Mg Table[facility] Protocol Cholecalciferol 62.5 mcg 10/06/23 08:00 10/06/23 08:50 Cholecalciferol (Vit D3) 25 Mcg Tablet (1,000 Units) PO 62.5 mcg [facility]ILY[facility] Administration Clopidogrel Bisulfate 75 mg 10/06/23 10:00 10/06/23 08:47 Clopidogrel Bisulfate 75 Mg Tablet PO 75 mg DAILY [facility] Administration Clotrimazole 1 applic 10/05/23 22:00 10/06/23 08:50 Clotrimazole/Betamethasone 1 Tube TOPICAL 10/15/23 22:01 1 applic BID [facility] Administration Protocol Compound Med 2 click 10/05/23 22:00 10/06/23 09:02 Arthritis Pain Compound 60 Click Tube TOPICAL Not Given BID [facility] Protocol Duloxetine HCl 30 mg 10/05/23 22:00 10/06/23 08:47 Duloxetine Hcl 30 Mg Capsule PO 30 mg BID [facility] Administration Furosemide 40 mg 10/06/23 10:00 10/06/23 08:47 Furosemide 40 Mg Tablet PO 40 mg DAILY [facility] Administration Protocol Guaifenesin 2 tablet 10/05/23 22:00 10/06/23 08:49 Guaifenesin/D-Methorphan Tab.Sr.12h PO 2 tablet BID [facility] Administration Insulin Glargine 15 unit 10/06/23 10:00 10/06/23 08:45 Insulin Glargine-Yfgn 100 Unit/Ml Pen SC 15 unit DAILY [facility] Administration Insulin Human Lispro 5 unit 10/05/23 18:30 10/06/23 12:20 Insulin Lispro 100 Unit/Ml Insuln.Pen SC Not Given TIDAC [facility] Losartan Potassium 25 mg 10/06/23 10:00 10/06/23 08:48 Losartan Potassium 25 Mg Tablet PO Not Given DAILY [facility] Protocol Multivitamins 1 tablet 10/06/23 08:00 10/06/23 08:50 Multivitamins,Therapeutic Tablet PO 1 tablet DAILYCM [facility] Administration Pantoprazole Sodium 40 mg 10/05/23 22:00 10/06/23 08:50 Pantoprazole Sodium 40 Mg Tablet PO 40 mg BID [facility] Administration Polyethylene Glycol 17 gm 10/06/23 10:00 10/06/23 08:47 Polyethylene Glycol 3350 17 Gm Packet PO Not Given DAILY [facility] Polysaccharide Iron Complex 150 mg 10/06/23 10:00 10/06/23 08:47 Iron Polysaccharide Complex 150 Mg Capsule PO 150 mg DAILY [facility] Administration Pramipexole Dihydrochloride 1.5 mg 10/05/23 22:00 10/05/23 21:59 Pramipexole Di-Hcl 0.5 Mg Tablet PO 1.5 mg QHS [facility] Administration Senna/Docusate Sodium 2 tablet 10/05/23 11:53 Senna/Docusate Sodium 1 Tablet PO BID PRN constipation Sodium Chloride 10 - 40 ml 10/05/23 12:16 10/05/23 21:57 0.9% Saline Lock 10 Ml Syringe IV 10 ml UD PRN Administration SALINE FLUSH Tuberculin PPD 0.1 ml 10/13/23 10:00 Tuberculin,Purif.Prot.Deriv. 50 Tu/Ml Vial ID 10/13/23 10:01 X1 ONE Problem List (Updated 10/05/23 @ 21:[address] Richy Pierson MD) Type 2 diabetes mellitus with hyperglycemia (Acute) GERD (gastroesophageal reflux disease) (Acute) Iron deficiency anemia (Acute) Depression (Acute) COPD (chronic obstructive pulmonary disease) (Chronic) Acute on chronic heart failure with preserved ejection fraction (HFpEF) (Acute) Acute hypoxic respiratory failure (Acute) RLS (restless legs syndrome) (Acute) TIA (transient ischemic attack) (Acute) Hyperlipidemia (Acute) Right lumbar radiculopathy (Acute) Debility (Acute) Vital Signs Temp Pulse Resp BP Pulse Ox O2 Del Method O2 Flow Rate 96.9 F L 89 18 108/50 L 94 Nasal Cannula 2 10/06/23 15:24 10/06/23 15:24 10/06/23 15:24 10/06/23 15:24 10/06/23 15:24 10/06/23 15:24 10/06/23 15:30 Oxygen Flow Rate (L/min) 2 Oxygen Delivery Method Nasal Cannula Weight: 66.678 kg Body Mass Index (BMI) 27.0 Sodium 140 mmol/L (136-145) 10/06/23 05:36 Potassium 3.4 mmol/L (3.5-5.1) L 10/06/23 05:36 Chloride 102 mmol/L (98-107) 10/06/23 05:36 Carbon Dioxide 31.0 mmol/L (21.0-32.0) 10/06/23 05:36 Anion Gap 7 (5-15) 10/06/23 05:36 BUN 50 mg/dL (7-18) H 10/06/23 05:36 Creatinine 1.37 mg/dL (0.55-1.02) H 10/06/23 05:36 Est GFR (MDRD) Af Amer 47 mL/min (>60) L 10/06/23 05:36 Est GFR (MDRD) Non-Af 39 mL/min (>60) L 10/06/23 05:36 BUN/Creatinine Ratio 36.5 RATIO (10-20) H 10/06/23 05:36 Glucose 111 mg/dL (74-106) H 10/06/23 05:36 Assessment/Plan: 1. Pain: Arthritis Pain compound topically BID, Acetaminophen 1000mg PO Q6h PRN Pain 1-10, Please continue to monitor for increased/decreased S/S pain, PRN medication usage, local site irritation/redness. - To date, the patient has not used any PRN medication doses. pain appears italia managed at this time. 2. CAD/ CHF/ HLD: Aspirin 81mg PO Daily, Lipitor 40mg PO QHS, Coreg 12.5mg PO BID, Plavix 75mg PO Daily, Furosemide 40mg PO Daily, Losartan 25mg PO Daily. Please continue to monitor for S/S bleeding/bruising, Lipid panel annually or sooner if clinically indicated (last panel WNL 08/2023), BP (last 108/50), pulse (last 89 BPM), renal function (SCr 1.37 10/06/23 which is baseline), potassium (last 3.4 on 10/05), H/H (hgb 9, hct 29.3% on 10/05). 3. COPD/ Cough: Budesonide inhalation BID, Duoneb inhalation Q6h, Albuterol inhalation Q4h PRN, Mucinex-D 2 tab PO BID. Please continue to monitor for S/S COPD exacerbation, SOB, wheezing, HR, congestion, cough. 4. Diabetes Type II: Glargine 15 unit SC Daily, Humalog 5 unit SC TID. Please continue to monitor BG levels (range 99-113), A1c (7.2% on 09/14/23), S/S hypoglycemia, local site irritation/redness. 5. Esophagitis/ Duodenitis: Protonix 40mg PO BID. Please continue to monitor forS/S bleeding, stomach upset, headache. 6. Iron deficiency anemia: Ferrex 150mg PO Daily, Vitamin C 500mg PO Daily. Please continue to monitor iron studies as clinically indicated (last done 08/19/23), H/H. 7. Restless Leg Syndrome: Pramipexole 1.5mg PO QHS. Please continue to monitor for hallucinations, drowsiness, nausea, headache, constipation. 8. Tinea Pedis: Lotrisone cream topically BID. Please continue to monitor for resolution of infection. 9. General Wellness: Vitamin D 25mcg PO daily, MVI 1 tab PO daily. 10. Bowel: Miralax 17g PO daily, Senna/Docusate 2 tab PO BID PRN. Please continue to monitor for increased/decreased constipation and/or diarrhea. -The patient has not had a BM since admission (admit <48hrs ago). If no BM inthe next 48hrs, please consider giving PRN medication to help facilitate BM, thank you Assessment/Plan for indications treated with psychotropic medications: 1. Depression: Cymbalta 30mg PO BID. Please consider a GDR by 03/2024 if clinically indicated, thank you. Medical chart and medication regimen reviewed. The following medication irregularities or issues were identified: 1. Hypokalemia: Patient's potassium this morning was 3.4 mmol/L. The patient didhave a x1 replacement this morning, please continue to monitor closely as scheduled potassium supplementation may be warranted. 2. Depression: Cymbalta 30mg PO BID. Please consider a GDR by 03/2024 if clinically indicated, thank you. Date Date of Note:: 10/06/23 10/06/23 1618 <Electronically signed by Geri Escobedo> Geri Escobedo Cosigner Signature (if applicable): CC: ~ Signed [facility] Work Phone: 1(485) 734-548103-21-2024 History of Present illness Narrative* Maddison Renteria APRN.CNS - 10/06/2023 4:38 PM EDT Noted, schedule hospital follow up if needed. * Alison Hi RN - 10/06/2023 11:56 AM EDT CDM Telephonic Outreach Provider Maggie/[facility] Routed updates to Dr. Dunn CDM: CKD, COPD Chart Review: 09/12/23 [facility] TIA, Influenza A 10/03/23-10/05/23 [facility] Dx: Respiratory insufficiency,Pneumonia Spk with daughter Raimundo she noted Emerson was admitted to [facility] and is now at the Transitional Care Unit for past 2 1/2 weeks, Pt is being evaluated for discharge readiness and C needs. Contacted for: Routine Telephonic Outreach Contact made with patient: Yes Patient identified by name and date of . Discussed care with daughter Are you experiencing any new or worsening symptoms you need to talk about today? Yes Alison Hi RN October 06, 2023 12:49 PM [facility] History and physical note Author Richy Pierson [facility] October 05, 2023 9:35pm Note Date/Time October 05, 2023 9:2 2pm [facility] Medical Records Department [address] [place] [address] History & Physical Exam 10/05/232113 MR#: [id number] Acct: [id number] Name: DICK ARTIS Rep #:[id number] : 1935 88 From: Richy Pierson MD PCP: Dr. Mady Dunn MD Status:AD M IN Location: TCU [facility] HPI - General General Date of Admission: 10/05/23 Date of Service: 10/05/23 Chief Complaint: Here for rehabilitation. HPI Narrative DICK ARTIS, is a 88 Female who presents with followin10/02/2023 [facility] ED TCU resident with SOB. Rehab after NSTEMI, COPD exacerbation, influenza A. Worsening SOB, increasing oxygen requirement. Hemoglobin 9.5, BNP 43, Troponin 17, EKG okay. CTA chest shows pneumonia, Negative pulmonary embolism. Vancomycin, Zosyn IV given. 10/02/2023 Admit to [facility]. Vancomycin, Zosyn, Urinary antigens, sputum culture for pneumonia. Wean oxygen to baseline oxygen. 10/03/2023 SOB. Pulsox 83%, RR 28. Stop antibiotics, start Furosemide for CHF. Furosemide 40mg IV BID for CHF. 10/04/2023 Breathing well, right lower extremity edema improved. Continue Carvedilol, Losartan, Furosemide 40mg IV BID for HFpEF. 10/05/2023 Feeling well. Await TCU. 10/05/2023 Admit to TCU with debility, here for rehabilitation, strengthening, prior to discharge home alone. [facility] Medical History (Updated 10/05/23 @ 21:[address] Richy Pierson MD) Acute hypoxic respiratory failure Bilateral carotid artery stenosis Chronic kidney disease Claudication Diverticulosis Dyslipidemia Essential hypertension History of COPD History of TIA (transient ischemic attack) Leg edema Limb weakness Muscle spasm of left shoulder area Neck and back pain PAD (peripheral artery disease) Renal cyst RLS (restless legs syndrome) Shortness of breath Shoulder pain TIA (transient ischemic attack) Vertigo Home Medications atorvastatin 40 mg tablet 40 mg PO QHS cholesterol 02/22/16 [History Last Taken 10/04/23 21:55] clopidogrel 75 mg tablet 75 mg PO DAILY BLOOD THINNER 02/22/16 [History Last Taken 10/05/23 08:50] multivitamin with folic acid 400 mcg tablet 1 tab PO DAILY supplement 02/22/16 [History Last Taken 10/05/23 08:50] albuterol sulfate 90 mcg/actuation aerosol inhaler 2 puff inhalation BID PRN shortness of breath or wheezing 03/16/18 [History Last Taken 09/02/23] cholecalciferol (vitamin D3) 25 mcg (1,000 unit) tablet 2,500 unit PO DAILY SUPPLEMENT 10/09/18 [History Last Taken 10/05/23 08:50] furosemide 40 mg tablet 40 mg PO DAILY FLUID RETENTION #90 tabs 01/27/22 [Rx Last Taken 09/15/23] albuterol sulfate 2.5 mg/3 mL (0.083 %) solution for nebulization 2.5 mg inhalation Q4H PRN shortness of breath or wheezing 05/28/22 [History Last Taken 10/03/23 04:30] ipratropium 0.5 mg-albuterol 3 mg (2.5 mg base)/3 mL nebulization soln 3 ml inhalation Q6H PRN shortness of breath 05/28/22 [History Last Taken 10/05/23 07:00] carvedilol 12.5 mg tablet 12.5 mg PO BID CHOLESTEROL #180 tabs 04/27/23 [Rx Last Taken 10/05/23 08:50] duloxetine 30 mg capsule,delayed release 30 mg PO BID pain 08/17/23 [History Last Taken 10/05/23 08:50] pramipexole 1.5 mg tablet 1.5 mg PO QHS restless leg syndrome 08/18/23 [History Last Taken 10/04/23 21:55] diclofenac sodium 1 % topical gel 1 inch topical DAILY PRN unknown 09/03/23 [History Last Taken Unknown] aspirin 81 mg tablet,delayed release 81 mg PO BREAKFAST blood 30 days #30 tabs 09/09/23 [Rx Last Taken 10/05/23 08:50] budesonide 0.5 mg/2 mL suspension for nebulization 0.25 mg inhalation BID breathing 30 days #0 mL 09/09/23 [Rx Last Taken 10/05/23 07:00] dexamethasone 2 mg tablet See Rx Instructions .Route .COMPLEX breathing #12 tabs09/09/23 [Rx Last Taken 09/15/23] dextromethorphan-guaifenesin 30 mg-600 mg tablet extended [id number] hr (Mucinex DM) 2 tab PO BID cough 7 days #0 tabs 09/09/23 [Rx Last Taken 10/05/23 08:55] ferrous sulfate 325 mg (65 mg iron) tablet (FeroSul) 325 mg PO QODAY@[facility] health maintenance #0 tabs 09/09/23 [Rx Last Taken 10/03/23 11:45] insulin glargine 100 unit/mL (3 mL) subcutaneous pen (Lantus Solostar U-100 Insulin) 15 unit (0.15 mL) subcut DAILY diabetes #15 mL 09/09/23 [Rx Last Taken 10/04/23 10:35] insulin lispro 100 unit/mL subcutaneous pen (Humalog KwikPen (U-100) Insulin) 10unit (0.1 mL) subcut TIDAC diabetes #0 mL 09/09/23 [Rx Last Taken 10/04/23 12:25] insulin lispro 100 unit/mL subcutaneous pen (Humalog KwikPen (U-100) Insulin) See Protocol subcut ACHS diabetes #0 mL 09/09/23 [Rx Last Taken 10/04/23 08:30] pantoprazole 40 mg tablet,delayed release 40 mg PO DAILY GERD 30 days #30 tabs 09/09/23 [Rx Last Taken 10/05/23 08:50] polyethylene glycol 3350 17 gram oral powder packet 17 g PO DAILY constipation #0 ea 09/09/23 [Rx Last Taken 10/03/23 10:45] sennosides 8.6 mg-docusate sodium 50 mg tablet (Stool Softener-Stimulant Laxative) 2 tab PO BID PRN constipation #0 tabs 09/09/23 [Rx Last Taken 09/11/23 10:35] losartan 50 mg tablet 25 mg (1/2 x 50 mg) PO DAILY BLOOD PRESSURE #90 tabs 09/12/23 [Rx Last Taken 10/05/23 08:50] Allergy/AdvReac Type Severity Reaction Status Date / Time lisinopril Allergy edema Verified 09/03/23 09:41 aspirin AdvReac Upset Verified 09/03/23 09:41 Stomach Family History Mother Heart disease Surgical History History of basal cell carcinoma excision History of carotid angioplasty History of kidney stones History of thyroid surgery History of total hysterectomy Social History household members: none housing: house Smoking Status: Former smoker how long ago did patient quit smokin years ago alcohol intake: current alcohol intake frequency: holidays/special occasions only details: rare substance use type: does not use caffeine: Yes Type: coffee Number of servings: 1 ROS Constitutional Constitutional: Denies chills, fever(s) or weight gain ENT HEENT: Denies headache(s), nasal congestion or nasal discharge Cardiovascular Cardiovascular: Denies chest pain or palpitations Respiratory/Chest Respiratory/Chest: Reports shortness of breath at rest; Denies cough, excessive phlegm production or shortness of breath with exertion Gastrointestinal Gastrointestinal: Denies abdominal pain, nausea or vomiting Genitourinary Genitourinary: Denies dysuria Musculoskeletal Musculoskeletal: Denies joint pain or joint swelling Integumentary Integumentary: Denies rash or wounds Neurologic Neurologic: Denies focal weakness, numbness or tingling Psychiatric Psychiatric: Denies anxiety, auditory hallucinations, depression, homicidal ideation or suicidal ideation Vital Signs Vital Signs Vital Signs: 10/05/23 11:11 10/05/23 11:11 10/05/23 16:00 Temperature 98.1 F 98.3 F Temperature Source Temporal Temporal Pulse Rate 89 99 Pulse Rhythm Regular Respiratory Rate 18 16 Respiratory Effort Normal Non-Labored Respiratory Depth Normal Respiratory Pattern Normal Blood Pressure 113/55 L 116/58 L Blood Pressure Mean 74 77 Blood Pressure Source Monitor Monitor Blood Pressure Position Semi-Fowlers Semi-Fowlers Blood Pressure Location Right Arm Left Arm Pulse Ox 94 95 Oxygen Delivery Method Nasal Cannula Nasal Cannula Nasal Cannula Oxygen Flow Rate (L/min) 2 2 2 Weight Weight: 65.856 kg Body Mass Index (BMI) 26.5 Physical Exam Const alert General Appearance: cooperative HEENT normocephalic Eyes PERRL and EOMs intact bilaterally Neck supple, no JVD and no carotid bruits Resp normal respiratory effort, normal air movement and clear to auscultation bilaterally Auscultation: crackles left base and wheezes Cardio regular rate and regular rhythm GI normal to inspection, nondistended, normoactive bowel sounds, non-tender and non-distended Extremity normal capillary refill General Extremity: Negative for edema Skin no rashes or lesions noted General Skin Exam: no breakdown Psych affect normal Appearance: appropriate Results Lab / Micro Data Labs: Laboratory Results - last 24 hr 10/05/23 11:28: POC Glucose 100 10/05/23 16:40: POC Glucose 113 H Assessment & Plan Assessment/Plan (1) Debility: (2) Right lumbar radiculopathy: (3) Acute hypoxic respiratory failure: (4) Acute on chronic heart failure with preserved ejection fraction (HFpEF): (5) Non-STEMI (non-ST elevated myocardial infarction): (6) COPD (chronic obstructive pulmonary disease): (7) Hyperlipidemia: (8) TIA (transient ischemic attack): (9) Depression: (10) Iron deficiency anemia: (11) GERD (gastroesophageal reflux disease): (12) RLS (restless legs syndrome): (13) Type 2 diabetes mellitus with hyperglycemia: PLAN: Plan 88 year old female with below past medical history hospitalized for acute respiratory failiure with hypoxia 2/2 acute on chronic HFpEF, pneumonia ruled out, admitted to TCU with debility, here for rehabilitation, strengthening, prior to discharger home alone. * Debility - PT/OT. * Pain - Tylenol 1000mg q6 prn pain (1-10), Arthritis pain compound 2 clicks topical bid. * Bowel - Miralax 17gm daily, senna/colace 2 tablets bid prn. * Adult immunization - Administer pneumonia vaccine, covid vaccine, flu vaccine as appropriate. * DVT prophylaxis - Hold, on dual antiplatelet therapy. * COPD - Budesonide 0.25mg inhaled bid, Duoneb 3ml [id number], Albuterol 2.5mg neb q4h prn. * Coronary artery disease - Carvedilol 12.5mg bid, Losartan 25mg daily, Plavix 75mg daily, Aspirin 81mg daily. * Hyperlipidemia - Atorvastatin 4mg qhs. * HFpEF - Carvedilol 12.5mg bid, Losartan 25mg daily, Furosemide 40mg daily. * Vitamin D deficiency - D3 25mcg daily. * Tinea pedis (left) Lotrisone cream topical bid. * Depression - Duloxetine 30mg bid, stable chronic detention use, GDR not recommended. * Iron deficiency anemia - Ferrex 150mg daily, Vitamin C 500mg daily. * Nutrition - Glucerna Shake 120ml tidcm. * Cough - Robitussin DM 2 tablets bid. * Diabetes Mellitus II - Glargine 15 units daily, Lispro 5 units tidac. * Nutrition - MVI daily. * Esophagitis/Duodenitis - Pantoprazole 40mg bid. * Restless leg syndrome - Mirapex 1.5mg qhs. 10/05/23 <Electronically signed by Richy Pierson MD> Cosigner Signature (if applicable): CC: Dr. Mady Dunn MD; Dr. Richy Pierson MD~ Signed [facility] Work Phone: 1(344) 944-826103-20-2024 Discharge summary Author Herrera Bauman [facility] October 05, 2023 9:02am Note Date/Time October 05, 2023 9:0 2am [facility] Medical Records Department [address] [place] [address] Discharge Summary 10/05/23 0900 MR#: [id number] Acct: [id number] Name: DICK ARTIS Rep #:[id number] : 1935 88 From: Herrera Bauman DO PCP: Dr. Mady Dunn MD Status:AD M IN Location: [place] [address] Providers Date of Admission: 10/03/23 Primary Care Physician: Dr. Mady Dunn MD Reason For Visit: NOSOCOMIAL PNEYMONIA WITH KEACX-RH-SBGONLY HYPOXIC Diagnosis Discharge Diagnosis (1) Pneumonia: Status: Acute Code(s): J18.9 - Pneumonia, unspecified organism Qualifiers: Pneumonia type: due to unspecified organism Laterality: right Lung location: unspecified part of lung Qualified Code(s): J18.9 - Pneumonia, unspecified organism (2) Respiratory insufficiency: Status: Acute Code(s): R06.89 - Other abnormalities of breathing Plan Acute on chronic hypoxic respiratory failure * POA. Pulse ox 83% with RR of 28. * Reviewing CTA, certainly abnormal, but pt is post COVID-19 (had in August) * May be ATX, but also concerned this could be due to CHF. Weight up 2 kg. Doubt pneumonia given CTA findings and that she is afebrile, and w/o leukocytosis. * Plan: DC abx, continue furosemide Acute HFpEF * EF 70% from echo on 09/05/2023 * DC PO furosemide, change to 40 IV BID. * Continue carvedilol and losartan. Chronic conditions: * COPD and no evidence of flare at this time - Continue as needed nebulizers. Patient quit smoking 2 years ago. * OA; with spinal stenosis causing Right radicular pain and chronic debility - Stable. Return patient to TCU when medically appropriate. * Essential hypertension - Continue home medications as previous plus give prn IV Hydralazine for systolic blood pressure > 160 mm Hg. * Hyperlipidemia - Resume statin. * Overweight; with BMI of 27.5 this admission * DM-2; of unknown control - ADA diet. FSBS q. AC/HS plus SSI. Check HgbA1c. * CAD; s/p NSTEMI - Continue baby aspirin, Plavix and statin as previous. * History of bilateral carotid stenosis; s/p carotid angioplasty - Stable. * History of TIA - Noted. Continue antiplatelets already ordered for #9. * PVD; with history of claudication * CKD; stage IIIb * Chronic iron deficiency anemia - Stable with hemoglobin of 9.5 g/dL present on admission. Resume iron supplementation as previous. * GERD - Continue PPI. DVT prophylaxis - Lovenox 40 mg subcu daily. Disposition: plan to return to TCU Medications at Discharge Home Medications atorvastatin 40 mg tablet 40 mg PO QHS cholesterol 02/22/16 clopidogrel 75 mg tablet 75 mg PO DAILY BLOOD THINNER 02/22/16 multivitamin with folic acid 400 mcg tablet 1 tab PO DAILY supplement 02/22/16 albuterol sulfate 90 mcg/actuation aerosol inhaler 2 puff inhalation BID PRN shortness of breath or wheezing 03/16/18 cholecalciferol (vitamin D3) 25 mcg (1,000 unit) tablet 2,500 unit PO DAILY SUPPLEMENT 10/09/18 furosemide 40 mg tablet 40 mg PO DAILY FLUID RETENTION #90 tabs 01/27/22 albuterol sulfate 2.5 mg/3 mL (0.083 %) solution for nebulization 2.5 mg inhalation Q4H PRN shortness of breath or wheezing 05/28/22 ipratropium 0.5 mg-albuterol 3 mg (2.5 mg base)/3 mL nebulization soln 3 ml inhalation Q6H PRN shortness of breath 05/28/22 carvedilol 12.5 mg tablet 12.5 mg PO BID CHOLESTEROL #180 tabs 04/27/23 duloxetine 30 mg capsule,delayed release 30 mg PO BID pain 08/17/23 pramipexole 1.5 mg tablet 1.5 mg PO QHS restless leg syndrome 08/18/23 diclofenac sodium 1 % topical gel 1 inch topical DAILY PRN unknown 09/03/23 aspirin 81 mg tablet,delayed release 81 mg PO BREAKFAST blood 30 days #30 tabs 09/09/23 budesonide 0.5 mg/2 mL suspension for nebulization 0.25 mg inhalation BID breathing 30 days #0 mL 09/09/23 dexamethasone 2 mg tablet See Rx Instructions .Route .COMPLEX breathing #12 tabs09/09/23 dextromethorphan-guaifenesin 30 mg-600 mg tablet extended [id number] hr (Mucinex DM) 2 tab PO BID cough 7 days #0 tabs 09/09/23 ferrous sulfate 325 mg (65 mg iron) tablet (FeroSul) 325 mg PO QODAY@[facility] health maintenance #0 tabs 09/09/23 insulin glargine 100 unit/mL (3 mL) subcutaneous pen (Lantus Solostar U-100 Insulin) 15 unit (0.15 mL) subcut DAILY diabetes #15 mL 09/09/23 insulin lispro 100 unit/mL subcutaneous pen (Humalog KwikPen (U-100) Insulin) 10unit (0.1 mL) subcut TIDAC diabetes #0 mL 09/09/23 insulin lispro 100 unit/mL subcutaneous pen (Humalog KwikPen (U-100) Insulin) See Protocol subcut ACHS diabetes #0 mL 09/09/23 pantoprazole 40 mg tablet,delayed release 40 mg PO DAILY GERD 30 days #30 tabs 09/09/23 polyethylene glycol 3350 17 gram oral powder packet 17 g PO DAILY constipation #0 ea 09/09/23 sennosides 8.6 mg-docusate sodium 50 mg tablet (Stool Softener-Stimulant Laxative) 2 tab PO BID PRN constipation #0 tabs 09/09/23 losartan 50 mg tablet 25 mg (1/2 x 50 mg) PO DAILY BLOOD PRESSURE #90 tabs 09/12/23 Hospital Course Operations None Procedures None Summary of Care Provided Minutes Spent on Discharge: 32 Hospital Course: Patient presents with shortness of breath. Initially felt to be due to pneumonia but on further evaluation. Being more related with CHF exacerbation. Patient was put on antibiotics without discontinued patient was put on IV furosemide. Patient did improve to her baseline 2 L nasal cannula. Her course was otherwise uncomplicated. Patient be discharged back to the transitional care unit. Weight / BMI Weight Weight: 67.404 kg Body Mass Index (BMI) 27.1 ABG / Lab / Microbiology Data 10/04/23 06:17 10/05/23 06:42 Laboratory: Laboratory Results - last 24 hr 10/04/23 08:31: POC Glucose 172 H 10/04/23 12:06: POC Glucose 118 H 10/04/23 17:11: POC Glucose 97 10/04/23 21:52: POC Glucose 130 H 10/05/23 06:34: POC Glucose 107 H 10/05/23 06:42: Sodium 140, Potassium 3.4 L, Chloride 103, Carbon Dioxide 29.0, Anion Gap 8, BUN 44 H, Creatinine 1.37 H, Estim Creat Clear Calc 26.53, Est GFR (MDRD) Af Amer 47 L, Est GFR (MDRD) Non-Af 39 L, BUN/Creatinine Ratio 32.1 H, Glucose 106, Calcium 8.7 Microbiology: Microbiology 10/03/23 04:00 Mucosa - Nasopharyngeal Respiratory Panel (PCR) - Final 10/03/23 03:27 Urine, Clean Catch Legionella Antigen - Final 10/03/23 03:27 Urine, Clean Catch Streptococcus pneumoniae Antigen (M - Final D/C Instructions Discharge Diet: 8 Cup Fluid Restriction and 2000 mg Sodium Diet Meaningful Use Info Meaningful Use Diagnoses (Choose all that apply): CHF CHF DIANA/ARB ordered at discharge?: Yes Documented LVEF (%): 70 Discharge Plan Admission Admit Date/Time: 10/03/23 00:00 Primary Reason for Your Visit: CHF exacerbation Attending Provider: Herrera Bauman Primary Care Provider: Mady Dunn Consulting Providers: Jorje Hood Instructions Patient Instructions: Heart Failure Flare Up Signs, Heart Failure: Tracking Your Weight, Heart Failure Make Changes Diet, Heart Failure Assessment, Heart Failure Care, Heart Failure and Physical Activity, Heart Failure Discharge Orders/Prescriptions Prescriptions: Continued cholecalciferol (vitamin D3) 1,000 unit tablet 2,500 unit PO DAILY albuterol sulfate 2.5 mg /3 mL (0.083 %) solution for nebulization 2.5 mg inhalation Q4H PRN (Reason: shortness of breath or wheezing) ipratropium-albuterol 0.5 mg-3 mg(2.5 mg base)/3 mL solution for nebulization 3 ml inhalation Q6H PRN (Reason: shortness of breath) duloxetine 30 mg capsule,delayed release(DR/EC) 30 mg PO BID atorvastatin 40 MG tablet 40 mg PO QHS clopidogrel 75 MG tablet 75 mg PO DAILY multivitamin with folic acid 1 TABLET tablet 1 tab PO DAILY albuterol sulfate 90 mcg/actuation HFA aerosol inhaler 2 puff INHALATION BID PRN (Reason: shortness of breath or wheezing) Hold Instructions: Order Changed pramipexole 1.5 mg tablet 1.5 mg PO QHS diclofenac sodium 1 % gel 1 inch TOPICAL DAILY PRN (Reason: unknown) Hold Instructions: not on in tcu Patient Comments: pt using, but unaware of directions polyethylene glycol 3350 17 gram Powder In Packet 17 g PO DAILY Qty: 0 0RF sennosides-docusate sodium [Stool Softener-Stimulant Laxat] 8.6-50 mg Tablet 2 tab PO BID PRN (Reason: constipation) Qty: 0 0RF pantoprazole 40 mg Tablet,Delayed Release (Dr/Ec) 40 mg PO DAILY 30 Days Qty: 30 0RF ferrous sulfate [FeroSul] 325 mg (65 mg iron) Tablet 325 mg PO QODAY@LUNCH Qty: 0 0RF Mucinex DM 30-600 mg Tablet Extended Release 12 Hr 2 tab PO BID 7 Days Qty: 0 0RF aspirin 81 mg Tablet,Delayed Release (Dr/Ec) 81 mg PO BREAKFAST 30 Days Qty: 30 2RF Hold Instructions: no currently on in Tcu insulin lispro [Humalog KwikPen Insulin] 100 unit/mL Insulin Pen See Protocol subcut ACHS Qty: 0 0RF Protocol: 4. Sliding Scale Insulin High-Med Dosing Condition: 150-199 mg/dl = 2 units Condition: 200-259 mg/dl = 4 units Condition: 260-324 mg/dl = 6 units Condition: 325-374 mg/dl = 8 units Condition: 375-409 mg/dl = 10 units Condition: 410-449 mg/dl = 11 units Condition: Greater than 449 call physician Protocol Text: - Use for Total Daily Dose of Insulin 56-80 units - Patient who are insulin resistant or septic HIGH MEDIUM DOSING ALGORITHM insulin lispro [Humalog KwikPen Insulin] 100 unit/mL Insulin Pen 10 unit subcut TIDAC Qty: 0 0RF insulin glargine [Lantus Solostar U-100 Insulin] 100 unit/mL (3 mL) insulin pen 15 unit subcut DAILY Qty: 15 2RF Rx Instructions: Hold if glucose less than 130 mg/dl budesonide 0.5 mg/2 mL suspension for nebulization 0.25 mg inhalation BID 30 Days Qty: 0 0RF dexamethasone 2 mg tablet See Rx Instructions .ROUTE .COMPLEX Qty: 12 0RF Rx Instructions: 2 mg orally twice daily for 3 days and then 2 mg once daily for 3 days, then 1 mg for 6 days and then stop losartan 50 mg tablet 25 mg PO DAILY Qty: 90 3RF Rx Instructions: Hold for SBP less than 130 mmHg furosemide 40 mg tablet 40 mg PO DAILY Qty: 90 3RF Hold Instructions: Hold for 2 days. carvedilol 12.5 mg tablet 12.5 mg PO BID Qty: 180 4RF Rx Instructions: must administer with a meal/food Referrals / Follow Up: Mady Dunn MD [Primary Care Provider] - Within 2 Weeks Disposition Disposition (needs filled in before D/C Order can be placed): [facility] Facility Charges/Coding Visit Charges Inpatient E&M: 21535 Disch Hosp >30min 10/05/23 0902 <Electronically signed by Herrera Bauman DO> Cosigner Signature (if applicable): CC: Dr. Herrera Bauman DO; Dr. Mady Dunn MD~ Signed [facility] Work Phone: 1([phone]) 831-771203-20-2024 Discharge summary Author Herrera Bauman [facility] October 05, 2023 9:00am Note Date/Time October 05, 2023 8:5 8am [facility] Medical Records Department [address] [place] [address] Transfer to [facility] MR#: [id number] Acct: [id number] Name: STEFFDICK LOPEZ Rep #:[id number] : 1935 88 From: Herrera Bauman DO PCP: Dr. Mady Dunn MD Status:AD M IN Certification of patient admission REQUIRED AT TIME OF ADMISSION. I CERTIFY THAT POST-HOSPITAL ECF SERVICES ARE REQUIRED TO BE GIVEN ON AN IN-PATIENT BASIS BECAUSE OF THE ABOVE NAMED PATIENT'S NEED FOR RESIDENTIAL CARE ON A CONTINUING BASIS FOR THE CONDITION(S) FOR WHICH HE/SHE WAS RECEIVING IN-PATIENT HOSPITAL SERVICES PRIOR TO HIS/HER TRANSFER TO THE ECF. 10/05/23 0900<Electronically signed by Herrera Bauman DO> Diet Diet Order/Speech Therapy: 10/03/23 12:31 Diet: Cardiac: Calorie-Controlled Type of Dietary Supplement:: grsielda Ensure Compact tid Is pt able to select menu?: Yes Fluid restriction:: 1500 mL How many daily calories?: 1600 calorie Therapies Extremity Affected:: Bilateral Lower Occupational Therapy: Eval and Treat Problem/Diagnosis (1) Pneumonia: Status: Acute Code(s): J18.9 - Pneumonia, unspecified organism (2) Respiratory insufficiency: Status: Acute Code(s): R06.89 - Other abnormalities of breathing Plan Acute on chronic hypoxic respiratory failure * POA. Pulse ox 83% with RR of 28. * Reviewing CTA, certainly abnormal, but pt is post COVID-19 (had in August) * May be ATX, but also concerned this could be due to CHF. Weight up 2 kg. Doubt pneumonia given CTA findings and that she is afebrile, and w/o leukocytosis. * Plan: DC abx, continue furosemide Acute HFpEF * EF 70% from echo on 09/05/2023 * DC PO furosemide, change to 40 IV BID. * Continue carvedilol and losartan. Chronic conditions: * COPD and no evidence of flare at this time - Continue as needed nebulizers. Patient quit smoking 2 years ago. * OA; with spinal stenosis causing Right radicular pain and chronic debility - Stable. Return patient to TCU when medically appropriate. * Essential hypertension - Continue home medications as previous plus give prn IV Hydralazine for systolic blood pressure > 160 mm Hg. * Hyperlipidemia - Resume statin. * Overweight; with BMI of 27.5 this admission * DM-2; of unknown control - ADA diet. FSBS q. AC/HS plus SSI. Check HgbA1c. * CAD; s/p NSTEMI - Continue baby aspirin, Plavix and statin as previous. * History of bilateral carotid stenosis; s/p carotid angioplasty - Stable. * History of TIA - Noted. Continue antiplatelets already ordered for #9. * PVD; with history of claudication * CKD; stage IIIb * Chronic iron deficiency anemia - Stable with hemoglobin of 9.5 g/dL present on admission. Resume iron supplementation as previous. * GERD - Continue PPI. DVT prophylaxis - Lovenox 40 mg subcu daily. Disposition: plan to return to TCU Allergies/Procedures Done in Hospital Allergies lisinopril Allergy (Verified 09/03/23 09:41) edema aspirin Adverse Reaction (Verified 09/03/23 09:41) Upset Stomach Type of Care/Length of Stay Estimated LOS: Convalescent Care Less Than 30 days Type of Care Needed: Skilled Rehab Potential: Good Prognosis: Good Additional Orders/Day of Discharge Day of Discharge: 10/05/23 Dietary and Speech Recommendations Dietitian Recommendations/Changes: Change diet to 1600 saúl Consistent CHO/ Cardiac w/ FR per MD orders Change 120 ml EPHP at medpass to 120 ml Ensure Compact tid w/ meals per pt request Discharge Plan Admission Admit Date/Time: 10/03/23 00:00 Primary Reason for Your Visit: CHF exacerbation Attending Provider: Herrera Bauman Primary Care Provider: Mady Dunn Consulting Providers: Jorje Hood Discharge Orders/Prescriptions Prescriptions: Continued cholecalciferol (vitamin D3) 1,000 unit tablet 2,500 unit PO DAILY albuterol sulfate 2.5 mg /3 mL (0.083 %) solution for nebulization 2.5 mg inhalation Q4H PRN (Reason: shortness of breath or wheezing) ipratropium-albuterol 0.5 mg-3 mg(2.5 mg base)/3 mL solution for nebulization 3 ml inhalation Q6H PRN (Reason: shortness of breath) duloxetine 30 mg capsule,delayed release(DR/EC) 30 mg PO BID atorvastatin 40 MG tablet 40 mg PO QHS clopidogrel 75 MG tablet 75 mg PO DAILY multivitamin with folic acid 1 TABLET tablet 1 tab PO DAILY albuterol sulfate 90 mcg/actuation HFA aerosol inhaler 2 puff INHALATION BID PRN (Reason: shortness of breath or wheezing) Hold Instructions: Order Changed pramipexole 1.5 mg tablet 1.5 mg PO QHS diclofenac sodium 1 % gel 1 inch TOPICAL DAILY PRN (Reason: unknown) Hold Instructions: not on in tcu Patient Comments: pt using, but unaware of directions polyethylene glycol 3350 17 gram Powder In Packet 17 g PO DAILY Qty: 0 0RF sennosides-docusate sodium [Stool Softener-Stimulant Laxat] 8.6-50 mg Tablet 2 tab PO BID PRN (Reason: constipation) Qty: 0 0RF pantoprazole 40 mg Tablet,Delayed Release (Dr/Ec) 40 mg PO DAILY 30 Days Qty: 30 0RF ferrous sulfate [FeroSul] 325 mg (65 mg iron) Tablet 325 mg PO QODAY@LUNCH Qty: 0 0RF Mucinex DM 30-600 mg Tablet Extended Release 12 Hr 2 tab PO BID 7 Days Qty: 0 0RF aspirin 81 mg Tablet,Delayed Release (Dr/Ec) 81 mg PO BREAKFAST 30 Days Qty: 30 2RF Hold Instructions: no currently on in Tcu insulin lispro [Humalog KwikPen Insulin] 100 unit/mL Insulin Pen See Protocol subcut ACHS Qty: 0 0RF Protocol: 4. Sliding Scale Insulin High-Med Dosing Condition: 150-199 mg/dl = 2 units Condition: 200-259 mg/dl = 4 units Condition: 260-324 mg/dl = 6 units Condition: 325-374 mg/dl = 8 units Condition: 375-409 mg/dl = 10 units Condition: 410-449 mg/dl = 11 units Condition: Greater than 449 call physician Protocol Text: - Use for Total Daily Dose of Insulin 56-80 units - Patient who are insulin resistant or septic HIGH MEDIUM DOSING ALGORITHM insulin lispro [Humalog KwikPen Insulin] 100 unit/mL Insulin Pen 10 unit subcut TIDAC Qty: 0 0RF insulin glargine [Lantus Solostar U-100 Insulin] 100 unit/mL (3 mL) insulin pen 15 unit subcut DAILY Qty: 15 2RF Rx Instructions: Hold if glucose less than 130 mg/dl budesonide 0.5 mg/2 mL suspension for nebulization 0.25 mg inhalation BID 30 Days Qty: 0 0RF dexamethasone 2 mg tablet See Rx Instructions .ROUTE .COMPLEX Qty: 12 0RF Rx Instructions: 2 mg orally twice daily for 3 days and then 2 mg once daily for 3 days, then 1 mg for 6 days and then stop losartan 50 mg tablet 25 mg PO DAILY Qty: 90 3RF Rx Instructions: Hold for SBP less than 130 mmHg furosemide 40 mg tablet 40 mg PO DAILY Qty: 90 3RF Hold Instructions: Hold for 2 days. carvedilol 12.5 mg tablet 12.5 mg PO BID Qty: 180 4RF Rx Instructions: must administer with a meal/food Referrals / Follow Up: Mady Dunn MD [Primary Care Provider] - Disposition Disposition (needs filled in before D/C Order can be placed): [facility] Facility (1) Pneumonia Qualifiers: Pneumonia type: due to unspecified organism Laterality: right Lung location:unspecified part of lung Qualified Code(s): J18.9 - Pneumonia, unspecified organism 10/05/23 0900 <Electronically signed by Herrera Bauman DO> Cosigner Signature (if applicable): CC: Dr. Jorje Hood DO; Dr. Mady Dunn MD ~ [facility] Work Phone: 1(239) 876-273503-20-2024 Progress note Author Herrera [facility] October 05, 2023 8:57am Note Date/Time October 05, 2023 7:1 4am [facility] Medical Records Department [address] [place] [id number] Progress Note - Hospitalist 10/05/23711 MR#: [id number] Acct: [id number] Name: DICK ARTIS Rep #:[id number] : 1935 88 From: Herrera Bauman DO PCP: Dr. Mady Dunn MD Status:AD M IN Location: [facility] [id number] Reason for Visit Reason for Visit: Diagnoses Pneumonia, unspecified organism (10/03/23) Other abnormalities of breathing (10/03/23) Subjective Subjective Feeling well. No events. Objective Data Objective Data Vital Signs: Vital Signs Temp Pulse Resp BP Pulse Ox O2 Del Method O2 Flow Rate 36.7 C 97 18 121/49 H 94 Nasal Cannula 2 10/05/23 02:50 10/05/23 02:50 10/05/23 02:50 10/05/23 02:50 10/05/23 02:50 10/05/23 03:00 10/05/23 03:00 Oxygen Flow Rate (L/min) 2 Oxygen Delivery Method Nasal Cannula Weight: 67.404 kg Body Mass Index (BMI) 27.1 Intake & Output: Intake and Output for Last 24 Hours 10/03/23 10/04/23 10/05/23 23:59 23:59 23:59 Intake Total 2318.75 / 2518.75 600 / 750 300 / 300 Output Total 500 / 800 550 / 550 Balance 1818.75 / 1718.75 50 / 200 300 / 300 Lab / Micro Data 10/04/23 06:17 10/05/23 06:42 Labs: Laboratory Results - last 24 hr 10/04/23 08:31: POC Glucose 172 H 10/04/23 12:06: POC Glucose 118 H 10/04/23 17:11: POC Glucose 97 10/04/23 21:52: POC Glucose 130 H 10/05/23 06:34: POC Glucose 107 H Micro: Microbiology 10/03/23 04:00 Mucosa - Nasopharyngeal Respiratory Panel (PCR) - Final 10/03/23 03:27 Urine, Clean Catch Legionella Antigen - Final 10/03/23 03:27 Urine, Clean Catch Streptococcus pneumoniae Antigen (M - Final Physical Exam Const alert and no apparent distress HEENT head/scalp atraumatic Resp normal respiratory effort, no retractions, no use of accessory muscles and clearto auscultation bilaterally Cardio regular rate, regular rhythm, S1 normal heart sound and S2 normal heart sound GI normal to inspection, nondistended, normoactive bowel sounds and soft to palpation Extremity General Extremity: edema bilateral lower extremity Details: mild Neuro Sensorium / Orientation: awake and alert Assessment & Plan Assessment/Plan (1) Pneumonia: QUALIFIERS: Laterality: right Lung location: unspecified part of lung Pneumonia type: due to unspecified organism Qualified Code(s): J18.9 - Pneumonia, unspecified organism (2) Respiratory insufficiency: PLAN: Plan Acute on chronic hypoxic respiratory failure * POA. Pulse ox 83% with RR of 28. * Reviewing CTA, certainly abnormal, but pt is post COVID-19 (had in August) * May be ATX, but also concerned this could be due to CHF. Weight up 2 kg. Doubt pneumonia given CTA findings and that she is afebrile, and w/o leukocytosis. * Plan: DC abx, continue furosemide Acute HFpEF * EF 70% from echo on 09/05/2023 * DC PO furosemide, change to 40 IV BID. * Continue carvedilol and losartan. Chronic conditions: * COPD and no evidence of flare at this time - Continue as needed nebulizers. Patient quit smoking 2 years ago. * OA; with spinal stenosis causing Right radicular pain and chronic debility - Stable. Return patient to TCU when medically appropriate. * Essential hypertension - Continue home medications as previous plus give prn IV Hydralazine for systolic blood pressure > 160 mm Hg. * Hyperlipidemia - Resume statin. * Overweight; with BMI of 27.5 this admission * DM-2; of unknown control - ADA diet. FSBS q. AC/HS plus SSI. Check HgbA1c. * CAD; s/p NSTEMI - Continue baby aspirin, Plavix and statin as previous. * History of bilateral carotid stenosis; s/p carotid angioplasty - Stable. * History of TIA - Noted. Continue antiplatelets already ordered for #9. * PVD; with history of claudication * CKD; stage IIIb * Chronic iron deficiency anemia - Stable with hemoglobin of 9.5 g/dL present on admission. Resume iron supplementation as previous. * GERD - Continue PPI. DVT prophylaxis - Lovenox 40 mg subcu daily. Disposition: plan to return to TCU 10/05/23 0857 <Electronically signed by Herrera Bauman DO> Cosigner Signature (if applicable): CC: ~ Signed [facility] Work Phone: 1(983) 579-614603-19-2024 Progress note Author Herrera Bauman [facility] October 04, 2023 10:41am Note Date/Time October 04, 2023 7:1 9am [facility] Medical Records Department [address] [place] [address] Progress Note - Hospitalist 10/04/23 0718 MR#: [id number] Acct: [id number] Name: DICK ARTIS Rep #:[id number] : 1935 88 From: Herrera Bauman DO PCP: Dr. Mady Dunn MD Status:AD M IN Location: [facility] [id number] Reason for Visit Reason for Visit: Diagnoses Pneumonia, unspecified organism (10/03/23) Other abnormalities of breathing (10/03/23) Subjective Subjective Breathing well. Decreased LE edema. Objective Data Objective Data Vital Signs: Vital Signs Temp Pulse Resp BP Pulse Ox O2 Del Method O2 Flow Rate 37.0 C 90 20 H 116/59 L 96 Nasal Cannula 2 10/04/23 05:30 10/04/23 05:30 10/04/23 05:30 10/04/23 05:30 10/04/23 05:30 10/04/23 05:30 10/04/23 05:30 Oxygen Flow Rate (L/min) 2 Oxygen Delivery Method Nasal Cannula Weight: 67.404 kg Body Mass Index (BMI) 27.1 Intake & Output: Intake and Output for Last 24 Hours 10/02/23 10/03/23 10/04/23 23:59 23:59 23:59 Intake Total 2318.75 / 2518.75 300 / 300 Output Total 500 / 800 550 / 550 Balance 1818.75 / 1718.75 -250 / -250 Lab / Micro Data 10/04/23 06:17 10/04/23 06:17 Labs: Laboratory Results - last 24 hr 10/03/23 11:37: POC Glucose 179 H 10/03/23 17:04: POC Glucose 105 10/03/23 21:25: POC Glucose 155 H 10/04/23 03:30: Urine Color Yellow, Urine Clarity Sl. Cloudy, Urine pH 7.0, Ur Specific Ironside 1.010, Urine Protein 30 H, Urine Glucose (UA) Normal, Urine Ketones Negative, Urine Occult Blood 50 H, Urine Nitrite Negative, Urine Bilirubin Negative, Urine Urobilinogen Normal, Ur Leukocyte Esterase 500 H, Urine RBC 10-25 SEEN, Urine WBC 50-100 SEEN, Ur Squamous Epith Cells 10-25 SEEN,Urine Bacteria 3+, Urine Mucus 0 SEEN 10/04/23 06:17: WBC 7.9, RBC 3.42 L, Hgb 10.2 L, Hct 33.4 L, MCV 97.7, MCH 29.8,MCHC 30.5 L, RDW Std Deviation 64.5 H, RDW Coeff of Ha 18.1 H, Plt Count 178, MPV 10.4, Immature Gran % (Auto) 2.900 H, Neut % (Auto) 62.3, Lymph % (Auto) 19.2, [place] % (Auto) 10.8 H, Eos % (Auto) 4.2, Baso % (Auto) 0.6, Absolute Neuts (auto) 4.9, Absolute Lymphs (auto) 1.52, Nucleated RBC % 0, Sodium 141, Potassium 3.6, Chloride 105, Carbon Dioxide 29.0, Anion Gap 7, BUN 40 H, Creatinine 1.36 H, Estim Creat Clear Calc 26.73, Est GFR (MDRD) Af Amer 47 L, Est GFR (MDRD) Non-Af 39 L, BUN/Creatinine Ratio 29.4 H, Glucose 108 H, Calcium 9.0 Micro: Microbiology 10/03/23 04:00 Mucosa - Nasopharyngeal Respiratory Panel (PCR) - Final 10/03/23 03:27 Urine, Clean Catch Legionella Antigen - Final 10/03/23 03:27 Urine, Clean Catch Streptococcus pneumoniae Antigen (M - Final Physical Exam Const alert HEENT head/scalp atraumatic and moist oral mucous membranes Resp normal respiratory effort and no retractions Cardio Cardio Narrative: tachy. regular. GI normal to inspection, nondistended, normoactive bowel sounds, soft to palpation,non-tender and non-distended Extremity normal to inspection and full ROM Neuro Sensorium / Orientation: awake Assessment & Plan Assessment/Plan (1) Pneumonia: QUALIFIERS: Laterality: right Lung location: unspecified part of lung Pneumonia type: due to unspecified organism Qualified Code(s): J18.9 - Pneumonia, unspecified organism (2) Respiratory insufficiency: PLAN: Plan Acute on chronic hypoxic respiratory failure * POA. Pulse ox 83% with RR of 28. * Reviewing CTA, certainly abnormal, but pt is post COVID-19 (had in August) * May be ATX, but also concerned this could be due to CHF. Weight up 2 kg. Doubt pneumonia given CTA findings and that she is afebrile, and w/o leukocytosis. * Plan: DC abx, furosemide Acute HFpEF * EF 70% from echo on 09/05/2023 * DC PO furosemide, change to 40 IV BID. * Continue carvedilol and losartan. Chronic conditions: * COPD and no evidence of flare at this time - Continue as needed nebulizers. Patient quit smoking 2 years ago. * OA; with spinal stenosis causing Right radicular pain and chronic debility - Stable. Return patient to TCU when medically appropriate. * Essential hypertension - Continue home medications as previous plus give prn IV Hydralazine for systolic blood pressure > 160 mm Hg. * Hyperlipidemia - Resume statin. * Overweight; with BMI of 27.5 this admission * DM-2; of unknown control - ADA diet. FSBS q. AC/HS plus SSI. Check HgbA1c. * CAD; s/p NSTEMI - Continue baby aspirin, Plavix and statin as previous. * History of bilateral carotid stenosis; s/p carotid angioplasty - Stable. * History of TIA - Noted. Continue antiplatelets already ordered for #9. * PVD; with history of claudication * CKD; stage IIIb * Chronic iron deficiency anemia - Stable with hemoglobin of 9.5 g/dL present on admission. Resume iron supplementation as previous. * GERD - Continue PPI. DVT prophylaxis - Lovenox 40 mg subcu daily. Charges/Coding Visit Charges Inpatient E&M: 97865 Subs Hosp L2 10/04/23 1041 <Electronically signed by Herrera Bauman DO> Cosigner Signature (if applicable): CC: ~ Signed [facility] Work Phone: 1(728) 936-990603-18-2024 Progress note Author [facility] October 03, 2023 11:43am Note Date/Time October 03, 2023 7:1 1am [facility] Medical Records Department [address] [place] [address] Progress Note - Hospitalist 10/03/23 0709 MR#: [id number] Acct: [id number] Name: DICK ARTIS Rep #:[id number] : 1935 88 From: Herrera Bauman DO PCP: Dr. Mady Dunn MD Status:AD M IN Location: [facility] [id number] Reason for Visit Reason for Visit: Diagnoses Pneumonia, unspecified organism (10/03/23) Other abnormalities of breathing (10/03/23) Subjective Subjective Feeling short of breath. Objective Data Objective Data Vital Signs: Vital Signs Temp Pulse Resp BP Pulse Ox O2 Del Method O2 Flow Rate 36.6 C 100 20 H 111/81 H 93 Nasal Cannula 3 10/03/23 06:24 10/03/23 07:01 10/03/23 07:01 10/03/23 06:24 10/03/23 07:01 10/03/23 07:01 10/03/23 07:01 Oxygen Flow Rate (L/min) 3 Oxygen Delivery Method Nasal Cannula Weight: 67.404 kg Body Mass Index (BMI) 27.1 Intake & Output: Intake and Output for Last 24 Hours 10/01/23 10/02/23 10/03/23 23:59 23:59 23:59 Intake Total 801.25 / 801.25 Balance 801.25 / 801.25 Lab / Micro Data 10/02/23 19:10 10/02/23 19:10 Labs: Laboratory Results - last 24 hr 10/02/23 19:10: WBC 7.8, RBC 3.16 L, Hgb 9.5 L, Hct 31.4 L, MCV 99.4 H, MCH 30.1, MCHC 30.3 L, RDW Std Deviation 65.8 H, RDW Coeff of Ha 17.7 H, Plt Count 176, MPV 10.4, Immature Gran % (Auto) 2.800 H, Neut % (Auto) 65.2, Lymph % (Auto) 17.8 L, [place] % (Auto) 9.6, Eos % (Auto) 4.0, Baso % (Auto) 0.6, Absolute Neuts (auto) 5.1, Absolute Lymphs (auto) 1.39, Nucleated RBC % 0, Anisocytosis 1+, Sodium 141, Potassium 4.3, Chloride 105, Carbon Dioxide 32.0, Anion Gap 4 L,BUN 54 H, Creatinine 1.37 H, Estim Creat Clear Calc 26.68, Est GFR (MDRD) Af Amer 47 L, Est GFR (MDRD) Non-Af 39 L, BUN/Creatinine Ratio 39.4 H, Glucose 155 H, Calcium 8.1 L, Troponin I High Sens 17, B-Natriuretic Peptide 43.1 10/03/23 06:30: POC Glucose 117 H Micro: Microbiology 10/03/23 03:27 Urine, Clean Catch Legionella Antigen - Final 10/03/23 03:27 Urine, Clean Catch Streptococcus pneumoniae Antigen (M - Final Radiography Diagnostic Testing: Radiology Impression Chest X-Ray 10/02/23 20:20 IMPRESSION: No definite acute or significant abnormality seen. Electronically Signed: Carlos Block MD at 20:58 EDT , Chest CTA 10/02/23 22:00 IMPRESSION: No demonstrated pulmonary embolism or arterial dissection. Left basilar atelectasis. Mild interstitial thickening/scarring. Small patchy areas of possible mild right pulmonary infiltrates. Electronically Signed: Gustavo Pleitez DO at 23:14 EDT , Physical Exam Const alert and no apparent distress Resp normal respiratory effort and no retractions Resp Narrative: coarse Breath sounds Cardio regular rate, regular rhythm, S1 normal heart sound and S2 normal heart sound GI normal to inspection, nondistended, normoactive bowel sounds, soft to palpation,non-tender and non-distended Neuro Sensorium / Orientation: awake and alert Assessment & Plan Assessment/Plan (1) Pneumonia: QUALIFIERS: Laterality: right Lung location: unspecified part of lung Pneumonia type: due to unspecified organism Qualified Code(s): J18.9 - Pneumonia, unspecified organism (2) Respiratory insufficiency: PLAN: Plan Acute hypoxic respiratory failure * POA. Pulse ox 83% with RR of 28. * Reviewing CTA, certainly abnormal, but pt is post COVID-19 (had in August) * May be ATX, but also concerned this could be due to CHF. Weight up 2 kg. Doubt pneumonia given CTA findings and that she is afebrile, and w/o leukocytosis. * Plan: DC abx, furosemide Acute HFpEF * EF 70% from echo on 09/05/2023 * DC PO furosemide, change to 40 IV BID. * Continue carvedilol and losartan. Chronic conditions: * COPD and no evidence of flare at this time - Continue as needed nebulizers. Patient quit smoking 2 years ago. * OA; with spinal stenosis causing Right radicular pain and chronic debility - Stable. Return patient to TCU when medically appropriate. * Essential hypertension - Continue home medications as previous plus give prn IV Hydralazine for systolic blood pressure > 160 mm Hg. * Hyperlipidemia - Resume statin. * Overweight; with BMI of 27.5 this admission * DM-2; of unknown control - ADA diet. FSBS q. AC/HS plus SSI. Check HgbA1c. * CAD; s/p NSTEMI - Continue baby aspirin, Plavix and statin as previous. * History of bilateral carotid stenosis; s/p carotid angioplasty - Stable. * History of TIA - Noted. Continue antiplatelets already ordered for #9. * PVD; with history of claudication * CKD; stage IIIb * Chronic iron deficiency anemia - Stable with hemoglobin of 9.5 g/dL present on admission. Resume iron supplementation as previous. * GERD - Continue PPI. DVT prophylaxis - Lovenox 40 mg subcu daily. Charges/Coding Visit Charges Inpatient E&M: 31418 Subs Hosp L2 10/03/23 1141 <Electronically signed by Herrera Bauman DO> Cosigner Signature (if applicable): CC: ~ Signed [facility] Work Phone: [phone] History and physical note Author Jorje Weems [facility] October 03, 2023 3:29am Note Date/Time October 02, 2023 11: 59pm [facility] Medical Records Department [address] [place] [id number] H&P Exam - Hospitalist 10/02/23 2330 MR#: [id number] Acct: [id number] Name: DICK ARTIS Rep #:[id number] : 1935 88 From: Jorje Martin DO PCP: Dr. Mady Dunn MD Status:AD M IN Location: LA3 [id number] HPI - General General Date of Admission: 10/03/23 Date of Service: 10/02/23 Chief Complaint: SOB. HPI Narrative DICK ARTIS, is a 88 F with a past medical history of essential hypertension, hyperlipidemia, overweight; with BMI of 27.5 this admission, DM-2; of unknown control, CAD; s/p NSTEMI, chronic diastolic CHF; with preserved LVEF, history ofbilateral carotid stenosis; s/p carotid angioplasty, history of TIA, PVD; with history of claudication, CKD; stage IIIb, chronic iron deficiency anemia, RLS, history of vertigo, depression, GERD, OA; with spinal stenosis causing Right radicular pain and chronic debility, history of tobacco abuse; with subsequent COPD with chronic hypoxic respiratory failure on 2L NC and recent admission herefrom September 03, 2023 to September 12, 2023 for treatment of NSTEMI and AE COPD in the setting of recent COVID-19 who was then sent TCU for rehabilitation who was using the bathroom on TCU when she became severely SOB with her oxygen saturations dropping into the ~80% range on RA which caused her to be sent to the ER for further evaluation and treatment. She states her severe SOB lasted for ~20 minutes with her being unable to cath her breath during that timeframe but now her breathing has improved with her supplemental oxygen increased to 3.5L nasal cannula. She denies associated fever, chills, nausea, vomiting, chest pain, wheezing or LE edema but she does admit to constipation with straining at stools that seem to trigger her symptoms. In the ER her CT scan of the chest was negative for PE but did reveal evidence of small patch areas of Right pulmonary infiltrates consistent with suspected Nosocomial Pneumonia complicatedby clinical evidence of [id number] hypoxic respiratory insufficiency and she was then admitted to the general medical floor for ongoing care for a stay that is expected to be greater than 48 hours. [facility] Medical History Acute hypoxic respiratory failure Bilateral carotid artery stenosis Chronic kidney disease Claudication Diverticulosis Dyslipidemia Essential hypertension History of COPD History of TIA (transient ischemic attack) Leg edema Limb weakness Muscle spasm of left shoulder area Neck and back pain PAD (peripheral artery disease) Renal cyst RLS (restless legs syndrome) Shortness of breath Shoulder pain TIA (transient ischemic attack) Vertigo Home Medications atorvastatin 40 mg tablet 40 mg PO QHS cholesterol 02/22/16 [History Last Taken 09/15/23] clopidogrel 75 mg tablet 75 mg PO DAILY BLOOD THINNER 02/22/16 [History Last Taken 09/14/23] multivitamin with folic acid 400 mcg tablet 1 tab PO DAILY supplement 02/22/16 [History Last Taken 09/15/23] albuterol sulfate 90 mcg/actuation aerosol inhaler 2 puff inhalation BID PRN shortness of breath or wheezing 03/16/18 [History Last Taken 09/02/23] cholecalciferol (vitamin D3) 25 mcg (1,000 unit) tablet 2,500 unit PO DAILY SUPPLEMENT 10/09/18 [History Last Taken 09/02/23] furosemide 40 mg tablet 40 mg PO DAILY FLUID RETENTION #90 tabs 01/27/22 [Rx Last Taken 09/15/23] albuterol sulfate 2.5 mg/3 mL (0.083 %) solution for nebulization 2.5 mg inhalation Q4H PRN shortness of breath or wheezing 05/28/22 [History Last Taken 09/03/23] ipratropium 0.5 mg-albuterol 3 mg (2.5 mg base)/3 mL nebulization soln 3 ml inhalation Q6H PRN shortness of breath 05/28/22 [History Last Taken 09/02/23] carvedilol 12.5 mg tablet 12.5 mg PO BID CHOLESTEROL #180 tabs 04/27/23 [Rx Last Taken 09/15/23] duloxetine 30 mg capsule,delayed release 30 mg PO BID pain 08/17/23 [History Last Taken 09/15/23] pramipexole 1.5 mg tablet 1.5 mg PO QHS restless leg syndrome 08/18/23 [History Last Taken 09/15/23] diclofenac sodium 1 % topical gel 1 inch topical DAILY PRN unknown 09/03/23 [History Last Taken Unknown] aspirin 81 mg tablet,delayed release 81 mg PO BREAKFAST blood 30 days #30 tabs 09/09/23 [Rx Last Taken 09/12/23 08:15] budesonide 0.5 mg/2 mL suspension for nebulization 0.25 mg inhalation BID breathing 30 days #0 mL 09/09/23 [Rx Last Taken 09/02/23] dexamethasone 2 mg tablet See Rx Instructions .Route .COMPLEX breathing #12 tabs09/09/23 [Rx Last Taken 09/15/23] dextromethorphan-guaifenesin 30 mg-600 mg tablet extended [id number] hr (Mucinex DM) 2 tab PO BID cough 7 days #0 tabs 09/09/23 [Rx Last Taken 09/15/23] ferrous sulfate 325 mg (65 mg iron) tablet (FeroSul) 325 mg PO QODAY@[facility]UN[facility] health maintenance #0 tabs 09/09/23 [Rx Last Taken 09/15/23] insulin glargine 100 unit/mL (3 mL) subcutaneous pen (Lantus Solostar U-100 Insulin) 15 unit (0.15 mL) subcut DAILY diabetes #15 mL 09/09/23 [Rx Last Taken 09/15/23] insulin lispro 100 unit/mL subcutaneous pen (Humalog KwikPen (U-100) Insulin) 10unit (0.1 mL) subcut TIDAC diabetes #0 mL 09/09/23 [Rx Last Taken 09/15/23] insulin lispro 100 unit/mL subcutaneous pen (Humalog KwikPen (U-100) Insulin) See Protocol subcut ACHS diabetes #0 mL 09/09/23 [Rx Last Taken 09/12/23 11:30] pantoprazole 40 mg tablet,delayed release 40 mg PO DAILY GERD 30 days #30 tabs 09/09/23 [Rx Last Taken 09/15/23] polyethylene glycol 3350 17 gram oral powder packet 17 g PO DAILY constipation #0 ea 09/09/23 [Rx Last Taken 09/11/23 12:20] sennosides 8.6 mg-docusate sodium 50 mg tablet (Stool Softener-Stimulant Laxative) 2 tab PO BID PRN constipation #0 tabs 09/09/23 [Rx Last Taken 09/11/23 10:35] losartan 50 mg tablet 25 mg (1/2 x 50 mg) PO DAILY BLOOD PRESSURE #90 tabs 09/12/23 [Rx Last Taken 09/15/23] Allergy/AdvReac Type Severity Reaction Status Date / Time lisinopril Allergy edema Verified 09/03/23 09:41 aspirin AdvReac Upset Verified 09/03/23 09:41 Stomach Family History Mother Heart disease Surgical History History of basal cell carcinoma excision History of carotid angioplasty History of kidney stones History of thyroid surgery History of total hysterectomy Social History household members: none housing: house Smoking Status: Former smoker how long ago did patient quit smokin years ago alcohol intake: current alcohol intake frequency: holidays/special occasions only details: rare substance use type: does not use caffeine: Yes Type: coffee Number of servings: 1 ROS ROS Narrative Review of systems: General: Patient denies fever or chills. HENT: Denies headache, denies stuffy nose, denies sore throat EYES: Denies changes in vision or discharge from eyes. Resp: Patient admits to dyspnea on exertion while going to the bathroom that devolved into persistent shortness of breath at rest as per HPI. Cardiac: Denies chest pain or palpitations. GI: Denies abdominal pain, denies changes in bowel, denies vomiting or nausea : Denies changes in urination Extremity: Denies swelling Musculoskeletal: Feels somewhat generally weak and unwell Neuro: Patient denies headache, paresthesias or focal neurologic deficits. Heme: Denies any bleeding or bruising Skin: Denies rashes Psychiatric: No complaints voiced related to uncontrolled depression or anxiety Endocrine: No polyuria, polydipsia or polyphagia. The rest of the 14 point ROS was negative except for positives in HPI. Vital Signs Vital Signs Vital Signs: 10/02/23 19:03 10/02/23 19:02 10/02/23 19:07 Temperature 98.3 F Temperature Source Oral Pulse Rate 101 H 104 H Respiratory Rate 35 H 30 H Respiratory Effort Short of Breath Labored Respiratory Depth Normal Respiratory Pattern Tachypnea Blood Pressure 113/45 L Blood Pressure Mean 67 Pulse Ox 83 96 Oxygen Delivery Method Nasal Cannula Nasal Cannula Nasal Cannula Oxygen Flow Rate (L/min) 3 4 4 10/02/23 19:07 10/02/23 19:48 10/02/23 20:07 Temperature 98.3 F 98.1 F Temperature Source Oral Oral Pulse Rate 103 H 101 H Respiratory Rate 30 H 28 H Respiratory Effort Respiratory Depth Respiratory Pattern Blood Pressure 111/47 L 109/49 L Blood Pressure Mean 68 69 Pulse Ox 96 93 92 Oxygen Delivery Method Nasal Cannula Nasal Cannula Nasal Cannula Oxygen Flow Rate (L/min) 4 2 2.5 10/02/23 20:56 10/02/23 21:00 10/02/23 22:00 Temperature 98.1 F 98.1 F 98.6 F Temperature Source Oral Oral Temporal Pulse Rate 97 103 H 94 Respiratory Rate 28 H 31 H 26 H Respiratory Effort Respiratory Depth Respiratory Pattern Blood Pressure 122/50 H 123/55 H 130/50 H Blood Pressure Mean 74 77 76 Pulse Ox 95 94 95 Oxygen Delivery Method Nasal Cannula Nasal Cannula Nasal Cannula Oxygen Flow Rate (L/min) 3.5 3.5 3 10/02/23 23:00 Temperature 98.2 F Temperature Source Temporal Pulse Rate 60 Respiratory Rate 31 H Respiratory Effort Respiratory Depth Respiratory Pattern Blood Pressure 156/64 H Blood Pressure Mean 94 Pulse Ox 96 Oxygen Delivery Method Bi-pap Oxygen Flow Rate (L/min) 35 Weight Weight: 150 lb 5.684 oz Body Mass Index (BMI) 27.5 Physical Exam Const alert, oriented x3 and no apparent distress General Appearance: cooperative HEENT normocephalic, head/scalp atraumatic, hearing grossly normal bilaterally and moist oral mucous membranes Eyes PERRL and EOMs intact bilaterally Neck no lymphadenopathy and supple Resp Resp Narrative: Diminished breath sounds on the right greater than left. Cardio regular rate and regular rhythm GI normal to inspection, nondistended, normoactive bowel sounds, soft to palpation,non-tender and non-distended Extremity normal to inspection, full ROM and no clubbing, cyanosis or edema Skin Skin Narrative: Patient has no evidence of rash at this time. Neuro oriented x3, CN's II-XII intact bilaterally, moves all extremities and no focal motor deficits Sensorium / Orientation: awake, alert, oriented to person, oriented to place andoriented to time Speech: speech normal Psych affect normal Results Medical Records Data Attestation: I reviewed the patient's medical records Lab / Micro Data Attestation: I reviewed the patient's lab results. 10/02/23 19:10 10/02/23 19:10 Labs: Laboratory Results - last 24 hr 10/02/23 19:10: WBC 7.8, RBC 3.16 L, Hgb 9.5 L, Hct 31.4 L, MCV 99.4 H, MCH 30.1, MCHC 30.3 L, RDW Std Deviation 65.8 H, RDW Coeff of Ha 17.7 H, Plt Count 176, MPV 10.4, Immature Gran % (Auto) 2.800 H, Neut % (Auto) 65.2, Lymph % (Auto) 17.8 L, [place] % (Auto) 9.6, Eos % (Auto) 4.0, Baso % (Auto) 0.6, Absolute Neuts (auto) 5.1, Absolute Lymphs (auto) 1.39, Nucleated RBC % 0, Anisocytosis 1+, Sodium 141, Potassium 4.3, Chloride 105, Carbon Dioxide 32.0, Anion Gap 4 L,BUN 54 H, Creatinine 1.37 H, Estim Creat Clear Calc 26.68, Est GFR (MDRD) Af Amer 47 L, Est GFR (MDRD) Non-Af 39 L, BUN/Creatinine Ratio 39.4 H, Glucose 155 H, Calcium 8.1 L, Troponin I High Sens 17, B-Natriuretic Peptide 43.1 Imaging Radiology Impression Chest X-Ray 10/02/23 20:20 IMPRESSION: No definite acute or significant abnormality seen. Electronically Signed: Carlos Block MD at 20:58 EDT , Chest CTA 10/02/23 22:00 IMPRESSION: No demonstrated pulmonary embolism or arterial dissection. Left basilar atelectasis. Mild interstitial thickening/scarring. Small patchy areas of possible mild right pulmonary infiltrates. Electronically Signed: Gustavo Pleitez DO at 23:14 EDT , Assessment & Plan Assessment/Plan (1) Pneumonia: QUALIFIERS: Pneumonia type: due to unspecified organism Laterality: right Lung location: unspecified part of lung Qualified Code(s): J18.9 - Pneumonia, unspecified organism (2) Respiratory insufficiency: PLAN: Plan 1. Patchy right-sided infiltrates on CT this admission consistent with suspected nosocomial pneumonia - Admit to general medical floor. Continue broad-spectrum antibiotics with IV vancomycin and IV Zosyn began in the ER and await culture and sensitivity data. Check urine antigens for Streptococcus pneumonia and Legionella. Check sputum cultures. Give Tylenol as needed pain or fever. 2. Gicgn-bx-[id number] hypoxic respiratory insufficiency arising from #1 - Wean additional supplemental oxygen as tolerated back down to baseline levels. Patient warned not to strain at stools and to ask for laxatives as needed. 3. History of tobacco abuse; with subsequent COPD and no evidence of flare at this time - Continue as needed nebulizers. Patient quit smoking 2 years ago. 4. Recent admission here from September 03, 2023 to September 12, 2023 for treatment of NSTEMI and AE COPD in the setting of recent COVID-19 who was then sent TCU for rehabilitation who was using the bathroom on TCU - Noted. 5. OA; with spinal stenosis causing Right radicular pain and chronic debility -Stable. Return patient to TCU when medically appropriate. 6. Essential hypertension - Continue home medications as previous plus give prnIV Hydralazine for systolic blood pressure > 160 mm Hg. 7. Hyperlipidemia - Resume statin. 8. Overweight; with BMI of 27.5 this admission - Weight loss will be recommended. 9. DM-2; of unknown control - ADA diet. FSBS q. AC/HS plus SSI. Check HgbA1c. 10. CAD; s/p NSTEMI - Continue baby aspirin, Plavix and statin as previous. 11. Chronic diastolic CHF; with preserved LVEF - Stable with no evidence of flare at this time evidenced by imaging negative for infiltrates and BNP of 43 pg/mL present on admission. 12. History of bilateral carotid stenosis; s/p carotid angioplasty - Stable. 13. History of TIA - Noted. Continue antiplatelets already ordered for #9. 14. PVD; with history of claudication - Noted. 15. CKD; stage IIIb - Stable. Check daily BMP to ensure continued stability. 16. Chronic iron deficiency anemia - Stable with hemoglobin of 9.5 g/dL presenton admission. Resume iron supplementation as previous. 17. RLS - Noted. 18. History of vertigo - Give Antivert as needed. 19. Depression - Resume current antidepressant regimen and give Xanax as neededfor breakthrough symptoms. 20. GERD - Continue PPI. 21. DVT prophylaxis - Lovenox 40 mg subcu daily. Total time: Approximately 55 minutes. Charges/Coding Visit Charges Inpatient E&M: 24603 Init Hosp L2 10/03/23 0322 <Electronically signed by Jorje Hood DO> Cosigner Signature (if applicable): CC: Dr. Jorje Hood DO; Dr. Mady Dunn MD~ Signed [facility] Work Phone: [phone] Discharge summary Author Matthew Schuster [facility] October 02, 2023 11:36pm Note Date/Time October 02, 2023 7:5 3pm [facility] Medical Records Department [address] [place] [address] Emergency Department Summary 10/02/23 MR#: [id number] Acct: [id number] Name: DICK ARTIS Rep #:[id number] : 1935 88 From: Matthew Schuster DO PCP: Dr. Mady Dunn MD Status:RE G ER Location: ED HPI History of Present Illness Chief Complaint: Shortness of Breath Narrative Narrative: 88-year-old female presenting with shortness of breath. She is currently in theTCU. Patient with recent admission for COPD exacerbation and then subsequently admitted for COVID-19. Patient states her last admission was for pneumonia and she is recovering in the TCU currently. She reports she had a 20-minute episodewhere she could not catch her breath after ambulating to the bathroom. Patient on 2 L of oxygen at baseline currently. Denies fevers. Does not feel as she has come down with something. Denies chest pain. [facility] Medical History Acute hypoxic respiratory failure Bilateral carotid artery stenosis Chronic kidney disease Claudication Diverticulosis Dyslipidemia Essential hypertension History of COPD History of TIA (transient ischemic attack) Leg edema Limb weakness Muscle spasm of left shoulder area Neck and back pain PAD (peripheral artery disease) Renal cyst RLS (restless legs syndrome) Shortness of breath Shoulder pain TIA (transient ischemic attack) Vertigo Home Medications atorvastatin 40 mg tablet 40 mg PO QHS cholesterol 02/22/16 [History Last Taken 09/15/23] clopidogrel 75 mg tablet 75 mg PO DAILY BLOOD THINNER 02/22/16 [History Last Taken 09/14/23] multivitamin with folic acid 400 mcg tablet 1 tab PO DAILY supplement 02/22/16 [History Last Taken 09/15/23] albuterol sulfate 90 mcg/actuation aerosol inhaler 2 puff inhalation BID PRN shortness of breath or wheezing 03/16/18 [History Last Taken 09/02/23] cholecalciferol (vitamin D3) 25 mcg (1,000 unit) tablet 2,500 unit PO DAILY SUPPLEMENT 10/09/18 [History Last Taken 09/02/23] furosemide 40 mg tablet 40 mg PO DAILY FLUID RETENTION #90 tabs 01/27/22 [Rx Last Taken 09/15/23] albuterol sulfate 2.5 mg/3 mL (0.083 %) solution for nebulization 2.5 mg inhalation Q4H PRN shortness of breath or wheezing 05/28/22 [History Last Taken 09/03/23] ipratropium 0.5 mg-albuterol 3 mg (2.5 mg base)/3 mL nebulization soln 3 ml inhalation Q6H PRN shortness of breath 05/28/22 [History Last Taken 09/02/23] carvedilol 12.5 mg tablet 12.5 mg PO BID CHOLESTEROL #180 tabs 04/27/23 [Rx Last Taken 09/15/23] duloxetine 30 mg capsule,delayed release 30 mg PO BID pain 08/17/23 [History Last Taken 09/15/23] pramipexole 1.5 mg tablet 1.5 mg PO QHS restless leg syndrome 08/18/23 [History Last Taken 09/15/23] diclofenac sodium 1 % topical gel 1 inch topical DAILY PRN unknown 09/03/23 [History Last Taken Unknown] aspirin 81 mg tablet,delayed release 81 mg PO BREAKFAST blood 30 days #30 tabs 09/09/23 [Rx Last Taken 09/12/23 08:15] budesonide 0.5 mg/2 mL suspension for nebulization 0.25 mg inhalation BID breathing 30 days #0 mL 09/09/23 [Rx Last Taken 09/02/23] dexamethasone 2 mg tablet See Rx Instructions .Route .COMPLEX breathing #12 tabs09/09/23 [Rx Last Taken 09/15/23] dextromethorphan-guaifenesin 30 mg-600 mg tablet extended hr (Mucinex DM) 2 tab PO BID cough 7 days #0 tabs 09/09/23 [Rx Last Taken 09/15/23] ferrous sulfate 325 mg (65 mg iron) tablet (FeroSul) 325 mg PO QODAY@[facility] health maintenance #0 tabs 09/09/23 [Rx Last Taken 09/15/23] insulin glargine 100 unit/mL (3 mL) subcutaneous pen (Lantus Solostar U-100 Insulin) 15 unit (0.15 mL) subcut DAILY diabetes #15 mL 09/09/23 [Rx Last Taken 09/15/23] insulin lispro 100 unit/mL subcutaneous pen (Humalog KwikPen (U-100) Insulin) 10unit (0.1 mL) subcut TIDAC diabetes #0 mL 09/09/23 [Rx Last Taken 09/15/23] insulin lispro 100 unit/mL subcutaneous pen (Humalog KwikPen (U-100) Insulin) See Protocol subcut ACHS diabetes #0 mL 09/09/23 [Rx Last Taken 09/12/23 11:30] pantoprazole 40 mg tablet,delayed release 40 mg PO DAILY GERD 30 days #30 tabs 09/09/23 [Rx Last Taken 09/15/23] polyethylene glycol 3350 17 gram oral powder packet 17 g PO DAILY constipation #0 ea 09/09/23 [Rx Last Taken 09/11/23 12:20] sennosides 8.6 mg-docusate sodium 50 mg tablet (Stool Softener-Stimulant Laxative) 2 tab PO BID PRN constipation #0 tabs 09/09/23 [Rx Last Taken 09/11/23 10:35] losartan 50 mg tablet 25 mg (1/2 x 50 mg) PO DAILY BLOOD PRESSURE #90 tabs 09/12/23 [Rx Last Taken 09/15/23] Allergy/AdvReac Type Severity Reaction Status Date / Time lisinopril Allergy edema Verified 09/03/23 09:41 aspirin AdvReac Upset Verified 09/03/23 09:41 Stomach Family History Mother Heart disease Surgical History History of basal cell carcinoma excision History of carotid angioplasty History of kidney stones History of thyroid surgery History of total hysterectomy Social History household members: none housing: house Smoking Status: Former smoker how long ago did patient quit smokin years ago alcohol intake: current alcohol intake frequency: holidays/special occasions only details: rare substance use type: does not use caffeine: Yes Type: coffee Number of servings: 1 ROS ROS ED Constitutional Constitutional ED: Denies chills, fever(s) or sweats Eyes Eyes: Denies blurry vision or change in vision ENT ENT ED: Denies ear pain or sore throat Cardiovascular Cardiovascular: Denies chest pain, palpitations or racing heartbeat Respiratory/Chest Respiratory/Chest: Reports dyspnea and dyspnea on exertion; Denies sputum Gastrointestinal Gastrointestinal: Denies abdominal pain, constipation, diarrhea, nausea or vomiting Genitourinary Genitourinary ED: Denies dysuria, hematuria or urinary frequency Musculoskeletal Musculoskeletal: Denies arthralgias, myalgias or neck pain Integumentary Denies abscess, Abrasions or rash Neurologic Neurologic: Denies headache(s), paresthesias or weakness Psychiatric Psychiatric: Denies anxiety, depression, suicidal ideation or suicidal thoughts Endocrine Endocrinology: Denies polydipsia or polyuria EXAM Physical Exam Const Vital Signs: 10/02/23 19:03 10/02/23 19:02 10/02/23 19:07 Temperature 98.3 F Temperature Source Oral Pulse Rate 101 H 104 H Respiratory Rate 35 H 30 H Respiratory Effort Short of Breath Labored Respiratory Depth Normal Respiratory Pattern Tachypnea Blood Pressure 113/45 L Blood Pressure Mean 67 Pulse Ox 83 96 Oxygen Delivery Method Nasal Cannula Nasal Cannula Nasal Cannula Oxygen Flow Rate (L/min) 3 4 4 10/02/23 19:07 10/02/23 19:48 10/02/23 20:07 Temperature 98.3 F 98.1 F Temperature Source Oral Oral Pulse Rate 103 H 101 H Respiratory Rate 30 H 28 H Respiratory Effort Respiratory Depth Respiratory Pattern Blood Pressure 111/47 L 109/49 L Blood Pressure Mean 68 69 Pulse Ox 96 93 92 Oxygen Delivery Method Nasal Cannula Nasal Cannula Nasal Cannula Oxygen Flow Rate (L/min) 4 2 2.5 10/02/23 20:56 10/02/23 21:00 10/02/23 22:00 Temperature 98.1 F 98.1 F 98.6 F Temperature Source Oral Oral Temporal Pulse Rate 97 103 H 94 Respiratory Rate 28 H 31 H 26 H Respiratory Effort Respiratory Depth Respiratory Pattern Blood Pressure 122/50 H 123/55 H 130/50 H Blood Pressure Mean 74 77 76 Pulse Ox 95 94 95 Oxygen Delivery Method Nasal Cannula Nasal Cannula Nasal Cannula Oxygen Flow Rate (L/min) 3.5 3.5 3 10/02/23 23:00 Temperature 98.2 F Temperature Source Temporal Pulse Rate 60 Respiratory Rate 31 H Respiratory Effort Respiratory Depth Respiratory Pattern Blood Pressure 156/64 H Blood Pressure Mean 94 Pulse Ox 96 Oxygen Delivery Method Bi-pap Oxygen Flow Rate (L/min) 35 Positive well nourished General Appearance ED: NAD HEENT Reports moist mucous membranes Eyes PERRL Neck no lymphadenopathy and supple Resp normal respiratory effort Auscultation: Negative for rales, rhonchi or wheezes Cardio regular rate and regular rhythm Neuro oriented x3 and CN's II-XII intact bilaterally Sensorium / Orientation: alert Motor Exam: strength 5/5 throughout Psych mental status grossly normal Skin no wounds and skin turgor normal MDM MDM MDM Narrative Medical decision making narrative: Patient recently admitted for pneumonia. Differential includes pneumonia, CHF, COPD exacerbation, dehydration, anemia, electrolyte maladies, ACS. CBC was obtained to assess white blood cell count, hemoglobin, platelets. BMP to assessrenal function, electrolytes, glucose. High-sensitivity troponin and EKG to assess for ischemia/dysrhythmia. Chest x-ray to rule out pneumonia or CHF. BNPwill be obtained to assess for CHF. Patient offered breathing treatments but declines. She does not sound like she is wheezing currently. She is on her baseline oxygen in the bed currently and she feels comfortable. CBC shows normal white blood cell count of 7.8. Hemoglobin 9.5. Platelets 176. Renal function electrolytes near baseline. BNP 43, troponin 17. EKG on my interpretation shows sinus rhythm at 100 bpm without sign ischemic change. Chest x-ray my interpretation shows no acute process. Radiologist interprets this and agrees. Because of patient's risk we did obtain a CTA and there is no evidence of PE but this does show pneumonia. Given her increased hypoxia we will treat her with vancomycin and Zosyn and discussed with hospitalist for admission. Impression: 1. Pneumonia 2. Hypoxia Lab Data Attestation: I reviewed the patient's lab results. Labs: Laboratory Results - last 24 hr 10/02/23 19:10 WBC 7.8 RBC 3.16 L Hgb 9.5 L Hct 31.4 L MCV 99.4 H MCH 30.1 MCHC 30.3 L RDW Std Deviation 65.8 H RDW Coeff of Ha 17.7 H Plt Count 176 MPV 10.4 Immature Gran % (Auto) 2.800 H Neut % (Auto) 65.2 Lymph % (Auto) 17.8 L [place] % (Auto) 9.6 Eos % (Auto) 4.0 Baso % (Auto) 0.6 Absolute Neuts (auto) 5.1 Absolute Lymphs (auto) 1.39 Nucleated RBC % 0 Anisocytosis 1+ Sodium 141 Potassium 4.3 Chloride 105 Carbon Dioxide 32.0 Anion Gap 4 L BUN 54 H Creatinine 1.37 H Estim Creat Clear Calc 26.68 Est GFR (MDRD) Af Amer 47 L Est GFR (MDRD) Non-Af 39 L BUN/Creatinine Ratio 39.4 H Glucose 155 H Calcium 8.1 L Troponin I High Sens 17 B-Natriuretic Peptide 43.1 Radiography Diagnostic Testing: Clinical Impression(s) from Imaging Studies Chest X-Ray 10/02/23 20:20 IMPRESSION: No definite acute or significant abnormality seen. Electronically Signed: Carlos Block MD at 20:58 EDT , Chest CTA 10/02/23 22:00 IMPRESSION: No demonstrated pulmonary embolism or arterial dissection. Left basilar atelectasis. Mild interstitial thickening/scarring. Small patchy areas of possible mild right pulmonary infiltrates. Electronically Signed: Gustavo Pleitez DO at 23:14 EDT , Discharge Plan Triage Chief Complaint: Shortness of Breath ED Provider: Matthew Schuster Dx/Rx/DC Orders Prescriptions: No Action cholecalciferol (vitamin D3) 1,000 unit tablet 2,500 unit PO DAILY albuterol sulfate 2.5 mg /3 mL (0.083 %) solution for nebulization 2.5 mg inhalation Q4H PRN (Reason: shortness of breath or wheezing) ipratropium-albuterol 0.5 mg-3 mg(2.5 mg base)/3 mL solution for nebulization 3 ml inhalation Q6H PRN (Reason: shortness of breath) duloxetine 30 mg capsule,delayed release(DR/EC) 30 mg PO BID atorvastatin 40 MG tablet 40 mg PO QHS clopidogrel 75 MG tablet 75 mg PO DAILY multivitamin with folic acid 1 TABLET tablet 1 tab PO DAILY albuterol sulfate 90 mcg/actuation HFA aerosol inhaler 2 puff INHALATION BID PRN (Reason: shortness of breath or wheezing) Hold Instructions: Order Changed pramipexole 1.5 mg tablet 1.5 mg PO QHS diclofenac sodium 1 % gel 1 inch TOPICAL DAILY PRN (Reason: unknown) Hold Instructions: not on in tcu Patient Comments: pt using, but unaware of directions polyethylene glycol 3350 17 gram Powder In Packet 17 g PO DAILY Qty: 0 0RF sennosides-docusate sodium [Stool Softener-Stimulant Laxat] 8.6-50 mg Tablet 2 tab PO BID PRN (Reason: constipation) Qty: 0 0RF pantoprazole 40 mg Tablet,Delayed Release (Dr/Ec) 40 mg PO DAILY 30 Days Qty: 30 0RF ferrous sulfate [FeroSul] 325 mg (65 mg iron) Tablet 325 mg PO QODAY@LUNCH Qty: 0 0RF Mucinex DM 30-600 mg Tablet Extended Release 12 Hr 2 tab PO BID 7 Days Qty: 0 0RF aspirin 81 mg Tablet,Delayed Release (Dr/Ec) 81 mg PO BREAKFAST 30 Days Qty: 30 2RF Hold Instructions: no currently on in Tcu insulin lispro [Humalog KwikPen Insulin] 100 unit/mL Insulin Pen See Protocol subcut ACHS Qty: 0 0RF Protocol: 4. Sliding Scale Insulin High-Med Dosing Condition: 150-199 mg/dl = 2 units Condition: 200-259 mg/dl = 4 units Condition: 260-324 mg/dl = 6 units Condition: 325-374 mg/dl = 8 units Condition: 375-409 mg/dl = 10 units Condition: 410-449 mg/dl = 11 units Condition: Greater than 449 call physician Protocol Text: - Use for Total Daily Dose of Insulin 56-80 units - Patient who are insulin resistant or septic HIGH MEDIUM DOSING ALGORITHM insulin lispro [Humalog KwikPen Insulin] 100 unit/mL Insulin Pen 10 unit subcut TIDAC Qty: 0 0RF insulin glargine [Lantus Solostar U-100 Insulin] 100 unit/mL (3 mL) insulin pen 15 unit subcut DAILY Qty: 15 2RF Rx Instructions: Hold if glucose less than 130 mg/dl budesonide 0.5 mg/2 mL suspension for nebulization 0.25 mg inhalation BID 30 Days Qty: 0 0RF dexamethasone 2 mg tablet See Rx Instructions .ROUTE .COMPLEX Qty: 12 0RF Rx Instructions: 2 mg orally twice daily for 3 days and then 2 mg once daily for 3 days, then 1 mg for 6 days and then stop losartan 50 mg tablet 25 mg PO DAILY Qty: 90 3RF Rx Instructions: Hold for SBP less than 130 mmHg furosemide 40 mg tablet 40 mg PO DAILY Qty: 90 3RF Hold Instructions: Hold for 2 days. carvedilol 12.5 mg tablet 12.5 mg PO BID Qty: 180 4RF Rx Instructions: must administer with a meal/food Primary Care Provider: Mady Dunn Referrals: Mady Dunn MD [Primary Care Provider] - What to do if you have Problems For any increased pain, shortness of breath, bleeding, nausea or vomiting, chestpain, or any unexpected problems, contact your Primary Care Provider. Call [facility] ([phone]) or report to the closest Emergency Room. Call 911 if necessary. 10/02/23 8476 <Electronically signed by Matthew Schuster DO> Cosigner Signature (if applicable): CC: Dr. Mady Dunn MD ~ Signed [facility] Work Phone: [phone] 811-998803-17-2024 Discharge summary Author Matthew [facility] October 02, 2023 11:36pm Note Date/Time October 02, 2023 7:5 3pm [facility] Medical Records Department [address] [place] [id number] Emergency Department Summary 10/02/23 MR#: [id number] Acct: [id number] Name: DICK ARTIS Rep #:[id number] : 1935 88 From: Matthew Schuster DO PCP: Dr. Mady Dunn MD Status:RE G ER Location: ED HPI History of Present Illness Chief Complaint: Shortness of Breath Narrative Narrative: 88-year-old female presenting with shortness of breath. She is currently in theTCU. Patient with recent admission for COPD exacerbation and then subsequently admitted for COVID-19. Patient states her last admission was for pneumonia and she is recovering in the TCU currently. She reports she had a 20-minute episodewhere she could not catch her breath after ambulating to the bathroom. Patient on 2 L of oxygen at baseline currently. Denies fevers. Does not feel as she has come down with something. Denies chest pain. [facility] Medical History Acute hypoxic respiratory failure Bilateral carotid artery stenosis Chronic kidney disease Claudication Diverticulosis Dyslipidemia Essential hypertension History of COPD History of TIA (transient ischemic attack) Leg edema Limb weakness Muscle spasm of left shoulder area Neck and back pain PAD (peripheral artery disease) Renal cyst RLS (restless legs syndrome) Shortness of breath Shoulder pain TIA (transient ischemic attack) Vertigo Home Medications atorvastatin 40 mg tablet 40 mg PO QHS cholesterol 02/22/16 [History Last Taken 09/15/23] clopidogrel 75 mg tablet 75 mg PO DAILY BLOOD THINNER 02/22/16 [History Last Taken 09/14/23] multivitamin with folic acid 400 mcg tablet 1 tab PO DAILY supplement 02/22/16 [History Last Taken 09/15/23] albuterol sulfate 90 mcg/actuation aerosol inhaler 2 puff inhalation BID PRN shortness of breath or wheezing 03/16/18 [History Last Taken 09/02/23] cholecalciferol (vitamin D3) 25 mcg (1,000 unit) tablet 2,500 unit PO DAILY SUPPLEMENT 10/09/18 [History Last Taken 09/02/23] furosemide 40 mg tablet 40 mg PO DAILY FLUID RETENTION #90 tabs 01/27/22 [Rx Last Taken 09/15/23] albuterol sulfate 2.5 mg/3 mL (0.083 %) solution for nebulization 2.5 mg inhalation Q4H PRN shortness of breath or wheezing 05/28/22 [History Last Taken 09/03/23] ipratropium 0.5 mg-albuterol 3 mg (2.5 mg base)/3 mL nebulization soln 3 ml inhalation Q6H PRN shortness of breath 05/28/22 [History Last Taken 09/02/23] carvedilol 12.5 mg tablet 12.5 mg PO BID CHOLESTEROL #180 tabs 04/27/23 [Rx Last Taken 09/15/23] duloxetine 30 mg capsule,delayed release 30 mg PO BID pain 08/17/23 [History Last Taken 09/15/23] pramipexole 1.5 mg tablet 1.5 mg PO QHS restless leg syndrome 08/18/23 [History Last Taken 09/15/23] diclofenac sodium 1 % topical gel 1 inch topical DAILY PRN unknown 09/03/23 [History Last Taken Unknown] aspirin 81 mg tablet,delayed release 81 mg PO BREAKFAST blood 30 days #30 tabs 09/09/23 [Rx Last Taken 09/12/23 08:15] budesonide 0.5 mg/2 mL suspension for nebulization 0.25 mg inhalation BID breathing 30 days #0 mL 09/09/23 [Rx Last Taken 09/02/23] dexamethasone 2 mg tablet See Rx Instructions .Route .COMPLEX breathing #12 tabs09/09/23 [Rx Last Taken 09/15/23] dextromethorphan-guaifenesin 30 mg-600 mg tablet extended jebeadr46 hr (Mucinex DM) 2 tab PO BID cough 7 days #0 tabs 09/09/23 [Rx Last Taken 09/15/23] ferrous sulfate 325 mg (65 mg iron) tablet (FeroSul) 325 mg PO QODAY@LUNCH health maintenance #0 tabs 09/09/23 [Rx Last Taken 09/15/23] insulin glargine 100 unit/mL (3 mL) subcutaneous pen (Lantus Solostar U-100 Insulin) 15 unit (0.15 mL) subcut DAILY diabetes #15 mL 09/09/23 [Rx Last Taken 09/15/23] insulin lispro 100 unit/mL subcutaneous pen (Humalog KwikPen (U-100) Insulin) 10unit (0.1 mL) subcut TIDAC diabetes #0 mL 09/09/23 [Rx Last Taken 09/15/23] insulin lispro 100 unit/mL subcutaneous pen (Humalog KwikPen (U-100) Insulin) See Protocol subcut ACHS diabetes #0 mL 09/09/23 [Rx Last Taken 09/12/23 11:30] pantoprazole 40 mg tablet,delayed release 40 mg PO DAILY GERD 30 days #30 tabs 09/09/23 [Rx Last Taken 09/15/23] polyethylene glycol 3350 17 gram oral powder packet 17 g PO DAILY constipation #0 ea 09/09/23 [Rx Last Taken 09/11/23 12:20] sennosides 8.6 mg-docusate sodium 50 mg tablet (Stool Softener-Stimulant Laxative) 2 tab PO BID PRN constipation #0 tabs 09/09/23 [Rx Last Taken 09/11/23 10:35] losartan 50 mg tablet 25 mg (1/2 x 50 mg) PO DAILY BLOOD PRESSURE #90 tabs 09/12/23 [Rx Last Taken 09/15/23] Allergy/AdvReac Type Severity Reaction Status Date / Time lisinopril Allergy edema Verified 09/03/23 09:41 aspirin AdvReac Upset Verified 09/03/23 09:41 Stomach Family History Mother Heart disease Surgical History History of basal cell carcinoma excision History of carotid angioplasty History of kidney stones History of thyroid surgery History of total hysterectomy Social History household members: none housing: house Smoking Status: Former smoker how long ago did patient quit smokin years ago alcohol intake: current alcohol intake frequency: holidays/special occasions only details: rare substance use type: does not use caffeine: Yes Type: coffee Number of servings: 1 ROS ROS ED Constitutional Constitutional ED: Denies chills, fever(s) or sweats Eyes Eyes: Denies blurry vision or change in vision ENT ENT ED: Denies ear pain or sore throat Cardiovascular Cardiovascular: Denies chest pain, palpitations or racing heartbeat Respiratory/Chest Respiratory/Chest: Reports dyspnea and dyspnea on exertion; Denies sputum Gastrointestinal Gastrointestinal: Denies abdominal pain, constipation, diarrhea, nausea or vomiting Genitourinary Genitourinary ED: Denies dysuria, hematuria or urinary frequency Musculoskeletal Musculoskeletal: Denies arthralgias, myalgias or neck pain Integumentary Denies abscess, Abrasions or rash Neurologic Neurologic: Denies headache(s), paresthesias or weakness Psychiatric Psychiatric: Denies anxiety, depression, suicidal ideation or suicidal thoughts Endocrine Endocrinology: Denies polydipsia or polyuria EXAM Physical Exam Const Vital Signs: 10/02/23 19:03 10/02/23 19:02 10/02/23 19:07 Temperature 98.3 F Temperature Source Oral Pulse Rate 101 H 104 H Respiratory Rate 35 H 30 H Respiratory Effort Short of Breath Labored Respiratory Depth Normal Respiratory Pattern Tachypnea Blood Pressure 113/45 L Blood Pressure Mean 67 Pulse Ox 83 96 Oxygen Delivery Method Nasal Cannula Nasal Cannula Nasal Cannula Oxygen Flow Rate (L/min) 3 4 4 10/02/23 19:07 10/02/23 19:48 10/02/23 20:07 Temperature 98.3 F 98.1 F Temperature Source Oral Oral Pulse Rate 103 H 101 H Respiratory Rate 30 H 28 H Respiratory Effort Respiratory Depth Respiratory Pattern Blood Pressure 111/47 L 109/49 L Blood Pressure Mean 68 69 Pulse Ox 96 93 92 Oxygen Delivery Method Nasal Cannula Nasal Cannula Nasal Cannula Oxygen Flow Rate (L/min) 4 2 2.5 10/02/23 20:56 10/02/23 21:00 10/02/23 22:00 Temperature 98.1 F 98.1 F 98.6 F Temperature Source Oral Oral Temporal Pulse Rate 97 103 H 94 Respiratory Rate 28 H 31 H 26 H Respiratory Effort Respiratory Depth Respiratory Pattern Blood Pressure 122/50 H 123/55 H 130/50 H Blood Pressure Mean 74 77 76 Pulse Ox 95 94 95 Oxygen Delivery Method Nasal Cannula Nasal Cannula Nasal Cannula Oxygen Flow Rate (L/min) 3.5 3.5 3 10/02/23 23:00 Temperature 98.2 F Temperature Source Temporal Pulse Rate 60 Respiratory Rate 31 H Respiratory Effort Respiratory Depth Respiratory Pattern Blood Pressure 156/64 H Blood Pressure Mean 94 Pulse Ox 96 Oxygen Delivery Method Bi-pap Oxygen Flow Rate (L/min) 35 Positive well nourished General Appearance ED: NAD HEENT Reports moist mucous membranes Eyes PERRL Neck no lymphadenopathy and supple Resp normal respiratory effort Auscultation: Negative for rales, rhonchi or wheezes Cardio regular rate and regular rhythm Neuro oriented x3 and CN's II-XII intact bilaterally Sensorium / Orientation: alert Motor Exam: strength 5/5 throughout Psych mental status grossly normal Skin no wounds and skin turgor normal MDM MDM MDM Narrative Medical decision making narrative: Patient recently admitted for pneumonia. Differential includes pneumonia, CHF, COPD exacerbation, dehydration, anemia, electrolyte maladies, ACS. CBC was obtained to assess white blood cell count, hemoglobin, platelets. BMP to assessrenal function, electrolytes, glucose. High-sensitivity troponin and EKG to assess for ischemia/dysrhythmia. Chest x-ray to rule out pneumonia or CHF. BNPwill be obtained to assess for CHF. Patient offered breathing treatments but declines. She does not sound like she is wheezing currently. She is on her baseline oxygen in the bed currently and she feels comfortable. CBC shows normal white blood cell count of 7.8. Hemoglobin 9.5. Platelets 176. Renal function electrolytes near baseline. BNP 43, troponin 17. EKG on my interpretation shows sinus rhythm at 100 bpm without sign ischemic change. Chest x-ray my interpretation shows no acute process. Radiologist interprets this and agrees. Because of patient's risk we did obtain a CTA and there is no evidence of PE but this does show pneumonia. Given her increased hypoxia we will treat her with vancomycin and Zosyn and discussed with hospitalist for admission. Impression: 1. Pneumonia 2. Hypoxia Lab Data Attestation: I reviewed the patient's lab results. Labs: Laboratory Results - last 24 hr 10/02/23 19:10 WBC 7.8 RBC 3.16 L Hgb 9.5 L Hct 31.4 L MCV 99.4 H MCH 30.1 MCHC 30.3 L RDW Std Deviation 65.8 H RDW Coeff of Ha 17.7 H Plt Count 176 MPV 10.4 Immature Gran % (Auto) 2.800 H Neut % (Auto) 65.2 Lymph % (Auto) 17.8 L [place] % (Auto) 9.6 Eos % (Auto) 4.0 Baso % (Auto) 0.6 Absolute Neuts (auto) 5.1 Absolute Lymphs (auto) 1.39 Nucleated RBC % 0 Anisocytosis 1+ Sodium 141 Potassium 4.3 Chloride 105 Carbon Dioxide 32.0 Anion Gap 4 L BUN 54 H Creatinine 1.37 H Estim Creat Clear Calc 26.68 Est GFR (MDRD) Af Amer 47 L Est GFR (MDRD) Non-Af 39 L BUN/Creatinine Ratio 39.4 H Glucose 155 H Calcium 8.1 L Troponin I High Sens 17 B-Natriuretic Peptide 43.1 Radiography Diagnostic Testing: Clinical Impression(s) from Imaging Studies Chest X-Ray 10/02/23 20:20 IMPRESSION: No definite acute or significant abnormality seen. Electronically Signed: Carlos Block MD at 20:58 EDT , Chest CTA 10/02/23 22:00 IMPRESSION: No demonstrated pulmonary embolism or arterial dissection. Left basilar atelectasis. Mild interstitial thickening/scarring. Small patchy areas of possible mild right pulmonary infiltrates. Electronically Signed: Gustavo Pleitez DO at 23:14 EDT , Discharge Plan Triage Chief Complaint: Shortness of Breath ED Provider: Matthew Schuster Dx/Rx/DC Orders Prescriptions: No Action cholecalciferol (vitamin D3) 1,000 unit tablet 2,500 unit PO DAILY albuterol sulfate 2.5 mg /3 mL (0.083 %) solution for nebulization 2.5 mg inhalation Q4H PRN (Reason: shortness of breath or wheezing) ipratropium-albuterol 0.5 mg-3 mg(2.5 mg base)/3 mL solution for nebulization 3 ml inhalation Q6H PRN (Reason: shortness of breath) duloxetine 30 mg capsule,delayed release(DR/EC) 30 mg PO BID atorvastatin 40 MG tablet 40 mg PO QHS clopidogrel 75 MG tablet 75 mg PO DAILY multivitamin with folic acid 1 TABLET tablet 1 tab PO DAILY albuterol sulfate 90 mcg/actuation HFA aerosol inhaler 2 puff INHALATION BID PRN (Reason: shortness of breath or wheezing) Hold Instructions: Order Changed pramipexole 1.5 mg tablet 1.5 mg PO QHS diclofenac sodium 1 % gel 1 inch TOPICAL DAILY PRN (Reason: unknown) Hold Instructions: not on in tcu Patient Comments: pt using, but unaware of directions polyethylene glycol 3350 17 gram Powder In Packet 17 g PO DAILY Qty: 0 0RF sennosides-docusate sodium [Stool Softener-Stimulant Laxat] 8.6-50 mg Tablet 2 tab PO BID PRN (Reason: constipation) Qty: 0 0RF pantoprazole 40 mg Tablet,Delayed Release (Dr/Ec) 40 mg PO DAILY 30 Days Qty: 30 0RF ferrous sulfate [FeroSul] 325 mg (65 mg iron) Tablet 325 mg PO QODAY@LUNCH Qty: 0 0RF Mucinex DM 30-600 mg Tablet Extended Release 12 Hr 2 tab PO BID 7 Days Qty: 0 0RF aspirin 81 mg Tablet,Delayed Release (Dr/Ec) 81 mg PO BREAKFAST 30 Days Qty: 30 2RF Hold Instructions: no currently on in Tcu insulin lispro [Humalog KwikPen Insulin] 100 unit/mL Insulin Pen See Protocol subcut ACHS Qty: 0 0RF Protocol: 4. Sliding Scale Insulin High-Med Dosing Condition: 150-199 mg/dl = 2 units Condition: 200-259 mg/dl = 4 units Condition: 260-324 mg/dl = 6 units Condition: 325-374 mg/dl = 8 units Condition: 375-409 mg/dl = 10 units Condition: 410-449 mg/dl = 11 units Condition: Greater than 449 call physician Protocol Text: - Use for Total Daily Dose of Insulin 56-80 units - Patient who are insulin resistant or septic HIGH MEDIUM DOSING ALGORITHM insulin lispro [Humalog KwikPen Insulin] 100 unit/mL Insulin Pen 10 unit subcut TIDAC Qty: 0 0RF insulin glargine [Lantus Solostar U-100 Insulin] 100 unit/mL (3 mL) insulin pen 15 unit subcut DAILY Qty: 15 2RF Rx Instructions: Hold if glucose less than 130 mg/dl budesonide 0.5 mg/2 mL suspension for nebulization 0.25 mg inhalation BID 30 Days Qty: 0 0RF dexamethasone 2 mg tablet See Rx Instructions .ROUTE .COMPLEX Qty: 12 0RF Rx Instructions: 2 mg orally twice daily for 3 days and then 2 mg once daily for 3 days, then 1 mg for 6 days and then stop losartan 50 mg tablet 25 mg PO DAILY Qty: 90 3RF Rx Instructions: Hold for SBP less than 130 mmHg furosemide 40 mg tablet 40 mg PO DAILY Qty: 90 3RF Hold Instructions: Hold for 2 days. carvedilol 12.5 mg tablet 12.5 mg PO BID Qty: 180 4RF Rx Instructions: must administer with a meal/food Primary Care Provider: Mady Dunn Referrals: Mady Dunn MD [Primary Care Provider] - What to do if you have Problems For any increased pain, shortness of breath, bleeding, nausea or vomiting, chestpain, or any unexpected problems, contact your Primary Care Provider. Call [facility] ([phone]) or report to the closest Emergency Room. Call 911 if necessary. 10/02/23 0306 <Electronically signed by Matthew Schuster DO> Cosigner Signature (if applicable): CC: Dr. Mady Dunn MD ~ Signed [facility] Work Phone: 1(524) 420-920303-04-2024 History and physical note Author Richy Pierson [facility] September 19, 2023 7:38am Note Date/Time September 12, 2023 7:24pm [facility] Medical Records Department [address] [place] [address] History & Physical Exam 09/12/231914 MR#: [id number] Acct: [id number] Name: DICK ARTIS Rep #:[id number] : 1935 87 From: Richy Pierson MD PCP: Dr. Mady Dunn MD Status:AD IN Location: [place] [address] HPI - General General Date of Admission: 09/12/23 Date of Service: 09/12/23 Chief Complaint: Here for rehabilitation. HPI Narrative 09/03/2023 DICK ARTIS, is a 87 Female who presents to [facility] ED with back pain. Chronic back pain, sees pain management, status post 2 epidural steroid injections. Going to spine surgeon soon. COPD exacerbation, recent covid-19 admission. Oxygen 2 liters is new, status post steroids. Right low back pain radiating down right leg, Fentanyl given. Aerosols, Solu-medrol for COPD exacerbation. Creatinine 1.25, BNP 210, Chest X-ray showed improving infiltrates. Troponin 1220, Aspirin 324mg, Heparin drip for NSTEMI. 09/03/2023 Admit to [facility]. Cycle enzymes, Echo, Cardioloy, Aspirin, Plavix, BB, Statin for NSTEMI. Decadron IV, Aerosols, COPD exacerbation. PT/OT, Decadron IV, Narcotics IV, Gabapentin, cyclobenzaprine for right lumbar radiculopathy. 09/04/2023 Echo Normal LV. LVSF normal. LVEF 70%. PASP 30mm HG. 09/05/2023 SOB better, RAPHAEL persists. Cardiology recommended medical management for NSTEMI, HFpEF. PT/OT debility. Aerosols, Decadon IV for COPD. Recommend tertiary center for spinal stenosis, right lumbar radiculopathy surgery. Hold medications for Hypotension. 09/06/2023 SOB worse, 9 liters high flow oxygen. Zosyn IV for pneumonia, BiPAP prn. +influenza A, BiPAP added. 09/07/2023 Tamiflu for influenza A. BiPAP for Acute respiratory failure with hypoxia. Decadron IV for right lumbar radiculopathy. 09/08/2023 SOB improved, oxygen 4 liters. Urinary antigens negative. Tamiflu for Flu A. Zosyn IV pneumonia. BERNARDO improved, K 5.4. 09/09/2023 Oxygen 2 liters. Creatinine 1.37, K 5.1, Hemoglobin 8.3. 09/10/2023 Weak, tired. 09/11/2023 Last day of Tamiflu. 09/12/2023 Pre-[facility] TCU. 09/13/2023 Admit to TCU with debility, here for rehabilitation, strengthening, prior to discharge home alone. [facility] Medical History (Updated 09/12/23 @ 19:[address] Richy Pierson MD) Bilateral carotid artery stenosis Chronic kidney disease Claudication Diverticulosis Dyslipidemia Essential hypertension History of COPD History of TIA (transient ischemic attack) Leg edema Limb weakness Muscle spasm of left shoulder area Neck and back pain PAD (peripheral artery disease) Renal cyst RLS (restless legs syndrome) Shortness of breath Shoulder pain TIA (transient ischemic attack) Vertigo Home Medications atorvastatin 40 mg tablet 40 mg PO QHS cholesterol 02/22/16 [History Last Taken 09/11/23 22:30] clopidogrel 75 mg tablet 75 mg PO DAILY BLOOD THINNER 02/22/16 [History Last Taken 09/12/23 08:15] multivitamin with folic acid 400 mcg tablet 1 tab PO DAILY supplement 02/22/16 [History Last Taken 09/02/23] albuterol sulfate 90 mcg/actuation aerosol inhaler 2 puff inhalation BID PRN shortness of breath or wheezing 03/16/18 [History Last Taken 09/02/23] cholecalciferol (vitamin D3) 25 mcg (1,000 unit) tablet 2,500 unit PO DAILY SUPPLEMENT 10/09/18 [History Last Taken 09/02/23] furosemide 40 mg tablet 40 mg PO DAILY FLUID RETENTION #90 tabs 01/27/22 [Rx Last Taken 09/12/23 08:15] albuterol sulfate 2.5 mg/3 mL (0.083 %) solution for nebulization 2.5 mg inhalation Q4H PRN shortness of breath or wheezing 05/28/22 [History Last Taken 09/03/23] ipratropium 0.5 mg-albuterol 3 mg (2.5 mg base)/3 mL nebulization soln 3 ml inhalation Q6H PRN shortness of breath 05/28/22 [History Last Taken 09/02/23] carvedilol 12.5 mg tablet 12.5 mg PO BID CHOLESTEROL #180 tabs 04/27/23 [Rx Last Taken 09/12/23 08:15] duloxetine 30 mg capsule,delayed release 30 mg PO BID pain 08/17/23 [History Last Taken 09/12/23 08:15] pramipexole 1.5 mg tablet 1.5 mg PO QHS restless leg syndrome 08/18/23 [History Last Taken 09/11/23 22:30] diclofenac sodium 1 % topical gel 1 inch topical DAILY PRN unknown 09/03/23 [History Last Taken Unknown] aspirin 81 mg tablet,delayed release 81 mg PO BREAKFAST blood 30 days #30 tabs 09/09/23 [Rx Last Taken 09/12/23 08:15] budesonide 0.5 mg/2 mL suspension for nebulization 0.25 mg inhalation BID breathing 30 days #0 mL 09/09/23 [Rx Last Taken 09/02/23] dexamethasone 2 mg tablet See Rx Instructions .Route .COMPLEX breathing #12 tabs09/09/23 [Rx Last Taken Unknown] dextromethorphan-guaifenesin 30 mg-600 mg tablet extended [id number] hr (Mucinex DM) 2 tab PO BID cough 7 days #0 tabs 09/09/23 [Rx Last Taken 09/12/23 08:15] ferrous sulfate 325 mg (65 mg iron) tablet (FeroSul) 325 mg PO QODAY@[facility] health maintenance #0 tabs 09/09/23 [Rx Last Taken 09/11/23 12:20] insulin glargine 100 unit/mL (3 mL) subcutaneous pen (Lantus Solostar U-100 Insulin) 15 unit (0.15 mL) subcut DAILY diabetes #15 mL 09/09/23 [Rx Last Taken Unknown] insulin lispro 100 unit/mL subcutaneous pen (Humalog KwikPen (U-100) Insulin) 10unit (0.1 mL) subcut TIDAC diabetes #0 mL 09/09/23 [Rx Last Taken 09/10/23 11:50] insulin lispro 100 unit/mL subcutaneous pen (Humalog KwikPen (U-100) Insulin) See Protocol subcut ACHS diabetes #0 mL 09/09/23 [Rx Last Taken 09/12/23 11:30] pantoprazole 40 mg tablet,delayed release 40 mg PO DAILY GERD 30 days #30 tabs 09/09/23 [Rx Last Taken 09/12/23 08:15] polyethylene glycol 3350 17 gram oral powder packet 17 g PO DAILY constipation #0 ea 09/09/23 [Rx Last Taken 09/11/23 12:20] sennosides 8.6 mg-docusate sodium 50 mg tablet (Stool Softener-Stimulant Laxative) 2 tab PO BID PRN constipation #0 tabs 09/09/23 [Rx Last Taken 09/11/23 10:35] losartan 50 mg tablet 25 mg (1/2 x 50 mg) PO DAILY BLOOD PRESSURE #90 tabs 09/12/23 [Rx Last Taken 09/05/23] Allergy/AdvReac Type Severity Reaction Status Date / Time lisinopril Allergy edema Verified 09/03/23 09:41 aspirin AdvReac Upset Verified 09/03/23 09:41 Stomach Family History Mother Heart disease Surgical History History of basal cell carcinoma excision History of carotid angioplasty History of kidney stones History of thyroid surgery History of total hysterectomy Social History household members: none housing: house Smoking Status: Former smoker how long ago did patient quit smokin years ago alcohol intake: current alcohol intake frequency: holidays/special occasions only details: rare substance use type: does not use caffeine: Yes Type: coffee Number of servings: 1 ROS Constitutional Constitutional: Reports fatigue and weakness; Denies chills, fever(s) or weight gain ENT HEENT: Denies headache(s), nasal congestion or nasal discharge Cardiovascular Cardiovascular: Denies chest pain or palpitations Respiratory/Chest Respiratory/Chest: Denies cough, excessive phlegm production or shortness of breath with exertion Gastrointestinal Gastrointestinal: Denies abdominal pain, nausea or vomiting Genitourinary Genitourinary: Denies dysuria Musculoskeletal Musculoskeletal: Denies joint pain or joint swelling Integumentary Integumentary: Denies rash or wounds Neurologic Neurologic: Denies focal weakness, numbness or tingling Psychiatric Psychiatric: Denies anxiety, auditory hallucinations, depression, homicidal ideation or suicidal ideation Vital Signs Vital Signs Vital Signs: 09/12/23 16:18 09/12/23 16:18 Temperature 96.9 F L Temperature Source Temporal Pulse Rate 96 Pulse Rhythm Regular Pulse Strength Normal (2+) Respiratory Rate 18 Respiratory Effort Normal Non-Labored Respiratory Depth Normal Respiratory Pattern Normal Blood Pressure 121/62 H Blood Pressure Mean 81 Blood Pressure Source Monitor Blood Pressure Position Sitting Blood Pressure Location Left Arm Pulse Ox 98 Oxygen Delivery Method Nasal Cannula Nasal Cannula Oxygen Flow Rate (L/min) 5 5 Weight Weight: 66.497 kg Body Mass Index (BMI) 26.8 Physical Exam Const alert General Appearance: cooperative HEENT normocephalic Eyes PERRL and EOMs intact bilaterally Neck supple, no JVD and no carotid bruits Resp normal respiratory effort and normal air movement Auscultation: rhonchi and wheezes Cardio regular rate and regular rhythm GI normal to inspection, nondistended, normoactive bowel sounds, non-tender and non-distended Extremity normal capillary refill General Extremity: Negative for edema Skin no rashes or lesions noted General Skin Exam: no breakdown Psych affect normal Appearance: appropriate Assessment & Plan Assessment/Plan (1) Debility: (2) Non-STEMI (non-ST elevated myocardial infarction): (3) Acute exacerbation of chronic obstructive pulmonary disease: (4) Right lumbar radiculopathy: (5) Acute hypoxic respiratory failure: (6) Influenza A: (7) Hyperlipidemia: (8) TIA (transient ischemic attack): (9) RLS (restless legs syndrome): (10) Chronic heart failure with preserved ejection fraction (HFpEF): PLAN: Plan 87 year old female with below past medical history hospitalized for NSTEMI, acute respiratory failure secondary to influenza A, COPD exacerbation, complicated by right lumbar radiculopathy, acute kidney injury, hyperkalemia, anemia, admitted to TCU with debility, here for rehabilitation, strengthening, prior to discharge home alone. * Debility - PT/OT. * Dysphagia - ST. * Pain - Tylenol 1000mg q6 prn pain (1-10), Arthritis pain 1 click topical daily prn. * Bowel - Miralax 17gm daily, senna/colace 2 tablets bid prn. * Adult immunization - Administer pneumonia vaccine, covid vaccine, flu vaccine as appropriate. * DVT prophylaxis - Hold, anemia. * COPD - Budesonide 0.5mg bid, Duoneb 3ml q6, Albuterol 2.5mg q4 prn, Decadron 2mg bid with taper. * Hyperlipidemia - Atorvastatin 40mg qhs. * HFpEF - Coreg 12.5mg bid, Losartan 25mg daily, Furosemide 40mg daily. * TIA - Plavix 75mg daily. * Depression - Duloxetine 30mg bid, stable chronic watcher [employer] long goods use, GDR not recommended. * Iron deficiency anemia - Ferrous sulfate 325mg qod. * Cough - Robitussin DM 2 tablets bid. * Diabetes Mellitus II - Glargine 15 units daily, Humalog 10 units tid. * Tinea Corporis - Miconazole topical bid. * Nutrition - MVI 1 tablet daily. * GERD - Pantoprazole 40mg daily. * Restless Leg syndrome - Mirapex 1.5mg qhs. 09/12/231942 <Electronically signed by Richy Pierson MD> Cosigner Signature (if applicable): CC: Dr. Mady Dunn MD; Dr. Richy Pierson MD~ Signed ADDENDUM by Dr. Richy Pierson MD on 09/19/23 at 0738 Addendum Pneumonia - Doxycycline 100mg bid x 7 days. 09/19/23 07<Electronically signed by Richy Pierson MD> Cosigner Signature (if applicable): cc: Dr. Mady Dunn MD; Dr. Richy Pierson MD ~* Signed [facility] Work Phone: 1(335) 308-257103-04-2024 Miscellaneous Notes* Telephone Encounter - Lien Hawkins - 09/19/2023 8:31 AM EST Dick's daughter, Raimundo called to cancel her 09/[address] Boone. Dick has been in the hospital for 2 weeks and they don't know when she'll be discharge, but then she'll be going to rehab. Theydon't know when she'll be able to make an appt. Raimundo would like you to give her a call ([phone]) and go over the results of the US. Please advise. Thank you, Lien Hawkins [facility]24 Procedure [facility]03-01-2024 History and physical note Author Teodoro Real [facility] September 16, 2023 11:24am Note Date/Time September 16, 2023 11:2 4am [facility] Medical Records Department [address] [place] [id number] History & Physical Exam 09/16/23 1123 MR#: [id number] Acct: [id number] Name: DICK ARTIS Rep #:[id number] : 1935 87 From: Teodoro Real DO PCP: Dr. Mady Dunn MD Status:[facility] Location: [place] [address] History and Physical Date of Admission: 09/16/23 DICK ARTIS, is a 87 F who past medical history hospitalized for NSTEMI, acute respiratory failure secondary to influenza A, COPD exacerbation, complicated by right lumbar radiculopathy, acute kidney injury, hyperkalemia, anemia, admitted to TCU with debility, here for rehabilitation, strengthening, prior to dischargehome alone. She has a severe anemia with history of chronic anemia from CKD/anemia of chronic disease: Hemoglobin decreased from 8.5-7.5. Her baseline creatinine runs between 9 to 10 g. Her hemoglobin drifted down to 6.8 and required blood transfusions. Her previous iron studies that showed a ferritin of 640, iron 95, TIBC 180, iron saturation of 52. She was diagnosed with acute blood loss anemia in the setting of anemia chronic disease. [facility] Medical History (Updated 09/15/23 @ 19:[address] Valerio Friend, DO) Bilateral carotid artery stenosis Chronic kidney disease Claudication Diverticulosis Dyslipidemia Essential hypertension History of COPD History of TIA (transient ischemic attack) Leg edema Limb weakness Muscle spasm of left shoulder area Neck and back pain PAD (peripheral artery disease) Renal cyst RLS (restless legs syndrome) Shortness of breath Shoulder pain TIA (transient ischemic attack) Vertigo Home Medications atorvastatin 40 mg tablet 40 mg PO QHS cholesterol 02/22/16 [History Last Taken 09/11/23 22:30] clopidogrel 75 mg tablet 75 mg PO DAILY BLOOD THINNER 02/22/16 [History Last Taken 09/12/23 08:15] multivitamin with folic acid 400 mcg tablet 1 tab PO DAILY supplement 02/22/16 [History Last Taken 09/02/23] albuterol sulfate 90 mcg/actuation aerosol inhaler 2 puff inhalation BID PRN shortness of breath or wheezing 03/16/18 [History Last Taken 09/02/23] cholecalciferol (vitamin D3) 25 mcg (1,000 unit) tablet 2,500 unit PO DAILY SUPPLEMENT 10/09/18 [History Last Taken 09/02/23] furosemide 40 mg tablet 40 mg PO DAILY FLUID RETENTION #90 tabs 01/27/22 [Rx Last Taken 09/12/23 08:15] albuterol sulfate 2.5 mg/3 mL (0.083 %) solution for nebulization 2.5 mg inhalation Q4H PRN shortness of breath or wheezing 05/28/22 [History Last Taken 09/03/23] ipratropium 0.5 mg-albuterol 3 mg (2.5 mg base)/3 mL nebulization soln 3 ml inhalation Q6H PRN shortness of breath 05/28/22 [History Last Taken 09/02/23] carvedilol 12.5 mg tablet 12.5 mg PO BID CHOLESTEROL #180 tabs 04/27/23 [Rx Last Taken 09/12/23 08:15] duloxetine 30 mg capsule,delayed release 30 mg PO BID pain 08/17/23 [History Last Taken 09/12/23 08:15] pramipexole 1.5 mg tablet 1.5 mg PO QHS restless leg syndrome 08/18/23 [History Last Taken 09/11/23 22:30] diclofenac sodium 1 % topical gel 1 inch topical DAILY PRN unknown 09/03/23 [History Last Taken Unknown] aspirin 81 mg tablet,delayed release 81 mg PO BREAKFAST blood 30 days #30 tabs 09/09/23 [Rx Last Taken 09/12/23 08:15] budesonide 0.5 mg/2 mL suspension for nebulization 0.25 mg inhalation BID breathing 30 days #0 mL 09/09/23 [Rx Last Taken 09/02/23] dexamethasone 2 mg tablet See Rx Instructions .Route .COMPLEX breathing #12 tabs 09/09/23 [Rx Last Taken Unknown] dextromethorphan-guaifenesin 30 mg-600 mg tablet extended [id number] hr (Mucinex DM) 2 tab PO BID cough 7 days #0 tabs 09/09/23 [Rx Last Taken 09/12/23 08:15] ferrous sulfate 325 mg (65 mg iron) tablet (FeroSul) 325 mg PO QODAY@[facility] health maintenance #0 tabs 09/09/23 [Rx Last Taken 09/11/23 12:20] insulin glargine 100 unit/mL (3 mL) subcutaneous pen (Lantus Solostar U-100 Insulin) 15 unit (0.15 mL) subcut DAILY diabetes #15 mL 09/09/23 [Rx Last Taken Unknown] insulin lispro 100 unit/mL subcutaneous pen (Humalog KwikPen (U-100) Insulin) 10 unit (0.1 mL) subcut TIDAC diabetes #0 mL 09/09/23 [Rx Last Taken 09/10/23 11:50] insulin lispro 100 unit/mL subcutaneous pen (Humalog KwikPen (U-100) Insulin) See Protocol subcut ACHS diabetes #0 mL 09/09/23 [Rx Last Taken 09/12/23 11:30] pantoprazole 40 mg tablet,delayed release 40 mg PO DAILY GERD 30 days #30 tabs 09/09/23 [Rx Last Taken 09/12/23 08:15] polyethylene glycol 3350 17 gram oral powder packet 17 g PO DAILY constipation #0 ea 09/09/23 [Rx Last Taken 09/11/23 12:20] sennosides 8.6 mg-docusate sodium 50 mg tablet (Stool Softener-Stimulant Laxative) 2 tab PO BID PRN constipation #0 tabs 09/09/23 [Rx Last Taken 09/11/23 10:35] losartan 50 mg tablet 25 mg (1/2 x 50 mg) PO DAILY BLOOD PRESSURE #90 tabs 09/12/23 [Rx Last Taken 09/05/23] Allergy/AdvReac Type Severity Reaction Status Date / Time lisinopril Allergy edema Verified 09/03/23 09:41 aspirin AdvReac Upset Verified 09/03/23 09:41 Stomach Family History Mother Heart disease Surgical History History of basal cell carcinoma excision History of carotid angioplasty History of kidney stones History of thyroid surgery History of total hysterectomy Social History household members: none housing: house Smoking Status: Former smoker how long ago did patient quit smokin years ago alcohol intake: current alcohol intake frequency: holidays/special occasions only details: rare substance use type: does not use caffeine: Yes Type: coffee Number of servings: 1 ROS Constitutional Constitutional: Reports fatigue and weakness; Denies chills, fever(s) or weight gain ENT HEENT: Denies headache(s), nasal congestion or nasal discharge Cardiovascular Cardiovascular: Denies chest pain or palpitations Respiratory/Chest Respiratory/Chest: Denies cough, excessive phlegm production or shortness of breath with exertion Gastrointestinal Gastrointestinal: Denies abdominal pain, nausea or vomiting Genitourinary Genitourinary: Denies dysuria Musculoskeletal Musculoskeletal: Denies joint pain or joint swelling Integumentary Integumentary: Denies rash or wounds Neurologic Neurologic: Denies focal weakness, numbness or tingling Psychiatric Psychiatric: Denies anxiety, auditory hallucinations, depression, homicidal ideation or suicidal ideation Physical Exam Const alert General Appearance: cooperative HEENT normocephalic Eyes PERRL and EOMs intact bilaterally Neck supple, no JVD and no carotid bruits Resp normal respiratory effort and normal air movement Auscultation: rhonchi and wheezes Cardio regular rate and regular rhythm GI normal to inspection, nondistended, normoactive bowel sounds, non-tender and non-distended Extremity normal capillary refill General Extremity: Negative for edema Skin no rashes or lesions noted General Skin Exam: no breakdown Psych affect normal Appearance: appropriate Lab / Micro Data 09/15/23 05:16 09/13/23 05:14 Labs: Laboratory Results - last 24 hr 09/14/23 21:16: POC Glucose 161 H 09/15/23 05:16: Hgb 10.6 L, Hct 32.6 L 09/15/23 05:57: POC Glucose 128 H 09/15/23 10:55: POC Glucose 163 H 09/15/23 16:46: POC Glucose 133 H Assessment & Plan Assessment/Plan (1) Anemia: PLAN: She will undergo an upper endoscopy to evaluate upper GI tract for blood loss anemia. 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 Will also look for signs of chronic blood loss such as Alhaji's erosions, gastric antral vascular ectasia, peptic ulcer disease, H. pylori associated gastritis. She was explained alternatives, risk, benefits include not withstanding bleeding, infection, sepsis, perforation, need for emergent urgent . She will have an ASA of 3. I have examined the patient and the H&P has been reviewed. There are no clinicalchanges since date of exam. 09/16/23 1124 <Electronically signed by Teodoro Real DO> Cosigner Signature (if applicable): CC: Dr. Mady Dunn MD; Teodoro Real DO~ Signed [facility] Work Phone: 1(436) 877-923902-29-2024 Consult note Author Teodoro Real [facility] September 15, 2023 7:30pm Note Date/Time September 15, 2023 7:26pm [facility] Medical Records Department [address] [place] [address] Consultation - GI 09/15/231925 MR#: [id number] Acct: [id number] Name: DICK ARTIS Rep #:[id number] : 1935 87 From: Teodoro Real DO PCP: Dr. Mady Dunn MD Status:AD M IN Location: [facility] TCU09-1 HPI Consult Data Date of Consult: 09/15/23 HPI Narrative HPI Narrative: DICK ARTIS, is a 87 F who past medical history hospitalized for NSTEMI, acute respiratory failure secondary to influenza A, COPD exacerbation, complicated by right lumbar radiculopathy, acute kidney injury, hyperkalemia, anemia, admitted to TCU with debility, here for rehabilitation, strengthening, prior to dischargehome alone. She has a severe anemia with history of chronic anemia from CKD/anemia of chronic disease: Hemoglobin decreased from 8.5-7.5. Her baseline creatinine runs between 9 to 10 g. Her hemoglobin drifted down to 6.8 and required blood transfusions. Her previous iron studies that showed a ferritin of 640, iron 95, TIBC 180, iron saturation of 52. She was diagnosed with acute blood loss anemia in the setting of anemia chronic disease. [facility] Medical History (Updated 09/15/23 @ 19:[address] Valerio Friend, DO) Bilateral carotid artery stenosis Chronic kidney disease Claudication Diverticulosis Dyslipidemia Essential hypertension History of COPD History of TIA (transient ischemic attack) Leg edema Limb weakness Muscle spasm of left shoulder area Neck and back pain PAD (peripheral artery disease) Renal cyst RLS (restless legs syndrome) Shortness of breath Shoulder pain TIA (transient ischemic attack) Vertigo Home Medications atorvastatin 40 mg tablet 40 mg PO QHS cholesterol 02/22/16 [History Last Taken 09/11/23 22:30] clopidogrel 75 mg tablet 75 mg PO DAILY BLOOD THINNER 02/22/16 [History Last Taken 09/12/23 08:15] multivitamin with folic acid 400 mcg tablet 1 tab PO DAILY supplement 02/22/16 [History Last Taken 09/02/23] albuterol sulfate 90 mcg/actuation aerosol inhaler 2 puff inhalation BID PRN shortness of breath or wheezing 03/16/18 [History Last Taken 09/02/23] cholecalciferol (vitamin D3) 25 mcg (1,000 unit) tablet 2,500 unit PO DAILY SUPPLEMENT 10/09/18 [History Last Taken 09/02/23] furosemide 40 mg tablet 40 mg PO DAILY FLUID RETENTION #90 tabs 01/27/22 [Rx Last Taken 09/12/23 08:15] albuterol sulfate 2.5 mg/3 mL (0.083 %) solution for nebulization 2.5 mg inhalation Q4H PRN shortness of breath or wheezing 05/28/22 [History Last Taken 09/03/23] ipratropium 0.5 mg-albuterol 3 mg (2.5 mg base)/3 mL nebulization soln 3 ml inhalation Q6H PRN shortness of breath 05/28/22 [History Last Taken 09/02/23] carvedilol 12.5 mg tablet 12.5 mg PO BID CHOLESTEROL #180 tabs 04/27/23 [Rx Last Taken 09/12/23 08:15] duloxetine 30 mg capsule,delayed release 30 mg PO BID pain 08/17/23 [History Last Taken 09/12/23 08:15] pramipexole 1.5 mg tablet 1.5 mg PO QHS restless leg syndrome 08/18/23 [History Last Taken 09/11/23 22:30] diclofenac sodium 1 % topical gel 1 inch topical DAILY PRN unknown 09/03/23 [History Last Taken Unknown] aspirin 81 mg tablet,delayed release 81 mg PO BREAKFAST blood 30 days #30 tabs 09/09/23 [Rx Last Taken 09/12/23 08:15] budesonide 0.5 mg/2 mL suspension for nebulization 0.25 mg inhalation BID breathing 30 days #0 mL 09/09/23 [Rx Last Taken 09/02/23] dexamethasone 2 mg tablet See Rx Instructions .Route .COMPLEX breathing #12 tabs09/09/23 [Rx Last Taken Unknown] dextromethorphan-guaifenesin 30 mg-600 mg tablet extended [id number] hr (Mucinex DM) 2 tab PO BID cough 7 days #0 tabs 09/09/23 [Rx Last Taken 09/12/23 08:15] ferrous sulfate 325 mg (65 mg iron) tablet (FeroSul) 325 mg PO QODAY@[facility] health maintenance #0 tabs 09/09/23 [Rx Last Taken 09/11/23 12:20] insulin glargine 100 unit/mL (3 mL) subcutaneous pen (Lantus Solostar U-100 Insulin) 15 unit (0.15 mL) subcut DAILY diabetes #15 mL 09/09/23 [Rx Last Taken Unknown] insulin lispro 100 unit/mL subcutaneous pen (Humalog KwikPen (U-100) Insulin) 10unit (0.1 mL) subcut TIDAC diabetes #0 mL 09/09/23 [Rx Last Taken 09/10/23 11:50] insulin lispro 100 unit/mL subcutaneous pen (Humalog KwikPen (U-100) Insulin) See Protocol subcut ACHS diabetes #0 mL 09/09/23 [Rx Last Taken 09/12/23 11:30] pantoprazole 40 mg tablet,delayed release 40 mg PO DAILY GERD 30 days #30 tabs 09/09/23 [Rx Last Taken 09/12/23 08:15] polyethylene glycol 3350 17 gram oral powder packet 17 g PO DAILY constipation #0 ea 09/09/23 [Rx Last Taken 09/11/23 12:20] sennosides 8.6 mg-docusate sodium 50 mg tablet (Stool Softener-Stimulant Laxative) 2 tab PO BID PRN constipation #0 tabs 09/09/23 [Rx Last Taken 09/11/23 10:35] losartan 50 mg tablet 25 mg (1/2 x 50 mg) PO DAILY BLOOD PRESSURE #90 tabs 09/12/23 [Rx Last Taken 09/05/23] Allergy/AdvReac Type Severity Reaction Status Date / Time lisinopril Allergy edema Verified 09/03/23 09:41 aspirin AdvReac Upset Verified 09/03/23 09:41 Stomach Family History Mother Heart disease Surgical History History of basal cell carcinoma excision History of carotid angioplasty History of kidney stones History of thyroid surgery History of total hysterectomy Social History household members: none housing: house Smoking Status: Former smoker how long ago did patient quit smokin years ago alcohol intake: current alcohol intake frequency: holidays/special occasions only details: rare substance use type: does not use caffeine: Yes Type: coffee Number of servings: 1 ROS Constitutional Constitutional: Reports fatigue and weakness; Denies chills, fever(s) or weight gain ENT HEENT: Denies headache(s), nasal congestion or nasal discharge Cardiovascular Cardiovascular: Denies chest pain or palpitations Respiratory/Chest Respiratory/Chest: Denies cough, excessive phlegm production or shortness of breath with exertion Gastrointestinal Gastrointestinal: Denies abdominal pain, nausea or vomiting Genitourinary Genitourinary: Denies dysuria Musculoskeletal Musculoskeletal: Denies joint pain or joint swelling Integumentary Integumentary: Denies rash or wounds Neurologic Neurologic: Denies focal weakness, numbness or tingling Psychiatric Psychiatric: Denies anxiety, auditory hallucinations, depression, homicidal ideation or suicidal ideation Physical Exam Const alert General Appearance: cooperative HEENT normocephalic Eyes PERRL and EOMs intact bilaterally Neck supple, no JVD and no carotid bruits Resp normal respiratory effort and normal air movement Auscultation: rhonchi and wheezes Cardio regular rate and regular rhythm GI normal to inspection, nondistended, normoactive bowel sounds, non-tender and non-distended Extremity normal capillary refill General Extremity: Negative for edema Skin no rashes or lesions noted General Skin Exam: no breakdown Psych affect normal Appearance: appropriate Lab / Micro Data 09/15/23 05:16 09/13/23 05:14 Labs: Laboratory Results - last 24 hr 09/14/23 21:16: POC Glucose 161 H 09/15/23 05:16: Hgb 10.6 L, Hct 32.6 L 09/15/23 05:57: POC Glucose 128 H 09/15/23 10:55: POC Glucose 163 H 09/15/23 16:46: POC Glucose 133 H Assessment & Plan Assessment/Plan (1) Anemia: PLAN: She will undergo an upper endoscopy to evaluate upper GI tract for blood loss anemia. 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 Will also look for signs of chronic blood loss such as Alhaji's erosions, gastric antral vascular ectasia, peptic ulcer disease, H. pylori associated gastritis. She was explained alternatives, risk, benefits include not withstanding bleeding, infection, sepsis, perforation, need for emergent urgent . She will have an ASA of 3. Charges/Coding Visit Charges Inpatient E&M: 48021 SNF Init L2 09/15/231929 <Electronically signed by Teodoro Friend DO> Cosigner Signature (if applicable): CC: Dr. Mady Dunn MD~ Signed [facility] Work Phone: 1(520) 947-808802-29-2024 Miscellaneous Notes* Telephone Encounter - Sowmya Yoder RN - 09/15/2023 10:57 AM EST Nurse called from [facility]. They will order and schedule. Sowmya Yoder RN * Telephone Encounter - Lien Hawkins - 09/14/2023 12:22 PM EST Dick Artis's daughter (Alina) called to inform Dr. Boone that Dick is in the hospital ([place]) and she won't be out in time for the appt for the US Kidney on Monday 09/18 at [facility]. She would like you to write an order for her mom to get the US of the Kidneys done in [facility]. Thank you, Lien Hawkins documented [facility]02[facility] Progress note Author Richy Dangelo [facility] September 13, 2023 10:30am Note Date/Time September 13, 2023 9:49am [facility] Medical Records Department [address] [place] [id number] Progress Note - Pharmacy 09/13/23 0949 MR#: [id number] Acct: [id number] Name: DICK ARTIS Rep #:[id number] : 1935 87 From: Kota Herrera PCP: Dr. Mady Dunn MD Status:AD M IN Location: TCU U09- Documented by User: Kota Herrera 09/13/23 10:19 TCU RX Drug Regimen Review Subjective/Objective Subjective/Objective: Subjective: TCU admission note. 87 year old female with below past medical history hospitalized for NSTEMI, acute respiratory failure secondary to influenza A, COPD exacerbation, complicated by right lumbar radiculopathy, acute kidney injury, hyperkalemia, anemia, admitted to TCU with debility, here for rehabilitation, strengthening, prior to discharge home alone. Objective: Allergies lisinopril Allergy (Verified 09/03/23 09:41) edema aspirin Adverse Reaction (Verified 09/03/23 09:41) Upset Stomach Current Medications Generic Name Dose Route Start Last Admin Trade Name Freq PRN Reason Stop Dose Admin Acetaminophen 1,000 mg 09/12/23 19:44 09/13/23 00:17 Acetaminophen 500 Mg Tablet PO 1,000 mg Q6H PRN PRN Administration Pain Score 1-10 Albuterol Sulfate 2.5 mg 09/12/23 16:47 Albuterol 2.5 Mg/3 Ml Vial.Neb. INHALATION Q4H PRN shortness of breath or wheezing Albuterol/Ipratropium 3 ml 09/12/23 16:52 09/13/23 07:25 Ipratropium/Albuterol Sulfate 3 Ml Ampul.Neb INHALATION 3 ml Q6H.RT MUSA Administration Atorvastatin Calcium 40 mg 09/12/23 22:00 09/12/23 20:48 Atorvastatin Calcium 40 Mg Tablet PO 40 mg QHS MUSA Administration Budesonide 0.5 mg 09/12/23 22:00 09/13/23 07:25 Budesonide Respules 0.5 Mg/2 Ml Ampul.Neb. INHALATION 0.5 mg BID.RT MUSA Administration Carvedilol 12.5 mg 09/12/23 22:00 09/13/23 08:04 Carvedilol 12.5 Mg Tablet PO 12.5 mg BID MUSA Administration Protocol Cholecalciferol 25 mcg 09/13/23 10:00 09/13/23 08:07 Cholecalciferol (Vit D3) 25 Mcg Tablet (1,000 Units) PO 25 mcg DAILY MUSA Administration Clopidogrel Bisulfate 75 mg 09/13/23 10:00 09/13/23 08:07 Clopidogrel Bisulfate 75 Mg Tablet PO 75 mg DAILY MUSA Administration Compound Med 1 click 09/12/23 17:41 Arthritis Pain Compound 60 Click Tube TOPICAL DAILY PRN Pain/Inflammation Dexamethasone 2 mg 09/13/23 08:00 09/13/23 08:03 Dexamethasone 0.5 Mg Tablet PO 09/25/23 07:59 2 mg BIDCM MUSA Administration Taper Duloxetine HCl 30 mg 09/12/23 22:00 09/13/23 08:05 Duloxetine Hcl 30 Mg Capsule PO 30 mg BID MUSA Administration Ferrous Sulfate 325 mg 09/13/23 12:00 Ferrous Sulfate 325 Mg Tablet PO QODAY@LUNCH [facility] Furosemide 40 mg 09/13/23 10:00 09/13/23 08:06 Furosemide 40 Mg Tablet PO 40 mg DAILY MUSA Administration Protocol Guaifenesin 2 tablet 09/12/23 22:00 09/13/23 08:06 Guaifenesin/D-Methorphan Tab.Sr.12h PO 2 tablet BID MUSA Administration Insulin Glargine 15 unit 09/13/23 10:00 09/13/23 08:06 Insulin Glargine-Yfgn 100 Unit/Ml Pen SC 15 unit DAILY MUSA Administration Insulin Human Lispro 10 unit 09/13/23 06:45 09/13/23 08:02 Insulin Lispro 100 Unit/Ml Insuln.Pen SC 10 u TIDAC [facility] Administration Losartan Potassium 25 mg 09/13/23 10:00 09/13/23 08:05 Losartan Potassium 25 Mg Tablet PO 25 mg DAILY MUSA Administration Protocol Miconazole Nitrate 1 applic 09/12/23 22:00 09/13/23 08:05 Miconazole Nitrate 43 Gm Bottle TOPICAL 1 applic BID [facility] Administration Protocol Multivitamins 1 tablet 09/13/23 08:00 09/13/23 08:04 Multivitamins,Therapeutic Tablet PO 1 tablet DAILYCM [facility] Administration Pantoprazole Sodium 40 mg 09/13/23 10:00 09/13/23 08:07 Pantoprazole Sodium 40 Mg Tablet PO 40 mg DAILY MUSA Administration Polyethylene Glycol 17 gm 09/13/23 10:00 09/13/23 08:02 Polyethylene Glycol 3350 17 Gm Packet PO Not Given DAILY MUSA Pramipexole Dihydrochloride 1.5 mg 09/12/23 22:00 09/12/23 20:48 Pramipexole Di-Hcl 0.5 Mg Tablet PO 1.5 mg QHS [facility] Administration Senna/Docusate Sodium 2 tablet 09/12/23 16:57 Senna/Docusate Sodium 1 Tablet PO BID PRN constipation Tuberculin PPD 0.1 ml 09/20/23 10:00 Tuberculin,Purif.Prot.Deriv. 50 Tu/Ml Vial ID 09/20/23 10:01 X1 ONE Tuberculin PPD 0.1 ml 09/13/23 10:00 Tuberculin,Purif.Prot.Deriv. 50 Tu/Ml Vial ID 09/13/23 10:01 X1 ONE Problem List (Updated 09/12/23 @ 19:[address] Richy Pierson MD) Chronic heart failure with preserved ejection fraction (HFpEF) (Acute) RLS (restless legs syndrome) (Acute) TIA (transient ischemic attack) (Acute) Hyperlipidemia (Acute) Influenza A (Acute) Right lumbar radiculopathy (Acute) Debility (Acute) Acute hypoxic respiratory failure (Acute) Non-STEMI (non-ST elevated myocardial infarction) (Acute) Vital Signs Temp Pulse Resp BP Pulse Ox O2 Del Method O2 Flow Rate 96.9 F L 82 16 106/68 97 Nasal Cannula 4 09/12/23 16:18 09/13/23 07:25 09/13/23 07:25 09/12/23 20:45 09/13/23 08:11 09/13/23 07:25 09/13/23 08:11 Oxygen Flow Rate (L/min) 4 Oxygen Delivery Method Nasal Cannula Weight: 66.497 kg Body Mass Index (BMI) 26.8 Sodium 142 mmol/L (136-145) 09/13/23 05:14 Potassium 3.5 mmol/L (3.5-5.1) 09/13/23 05:14 Chloride 107 mmol/L (98-107) 09/13/23 05:14 Carbon Dioxide 33.0 mmol/L (21.0-32.0) H 09/13/23 05:14 Anion Gap 2 (5-15) L 09/13/23 05:14 BUN 45 mg/dL (7-18) H 09/13/23 05:14 Creatinine 1.20 mg/dL (0.55-1.02) H 09/13/23 05:14 Est GFR (MDRD) Af Amer 55 mL/min (>60) L 09/13/23 05:14 Est GFR (MDRD) Non-Af 45 mL/min (>60) L 09/13/23 05:14 BUN/Creatinine Ratio 37.5 RATIO (10-20) H 09/13/23 05:14 Glucose 129 mg/dL (74-106) H 09/13/23 05:14 Assessment/Plan: 1. Pain: acetaminophen 1000 mg PO Q6H PRN pain, arthritis pain cream 1 click topically daily PRN pain. The patient has used no doses of arthritis pain cream,and 1 dose of PRN acetaminophen so far for a pain score of 5, resulting in a pain score of. Please continue to monitor pain levels, PRN medication usage, andLFTs (AST/ALT = 21/23 U/L on 08/19/23). 2. Bowel: polyethylene glycol 17 grams PO daily, senna/docusate 2 tablets PO BIDPRN constipation. The patient has not required any PRN doses of senna/docusate so far this admission, and her last bowel movement was today. Please continue tomonitor for diarrhea, constipation, bowel movements, and PRN medication usage. 3. COPD: budesonide 0.5 mg inhalation BID, ipratropium/albuterol 3 mL [id number], albuterol 2.5 mg inhalation Q4H PRN, dexamethasone 2 mg PO BID x 3 days, then 2 mg daily x 3 days, then 1 mg daily x 6 days. The patient has not requiredany PRN doses of albuterol so far this admission. Please continue to monitor forshortness of breath, cough, sputum production, palpitations, blood glucose readings (recent range 91-317 mg/dL), blood pressures (recent range = 92-131/42-63 mmHg), and for thrush. 4. HFpEF: carvedilol 12.5 mg PO BID, losartan 25 mg PO daily, furosemide 40 mg PO daily. Please continue to monitor for shortness of breath/congestion that could indicate heart failure exacerbation, for lower extremity edema, blood pressures (recent range = 92-131/42-63 mmHg), heart rates (recent range = 82-104), for fatigue, renal function (serum creatinine = 1.20 mg/dL with creatinineclearance ~ 31 mL/min on 09/13/23), potassium levels (K = 3.5 mmol/L on 09/13/23),sodium levels (Na = 142 mmol/L on 09/13/23), and calcium levels (Ca = 7.9 mg/dL on 08/2723). 5. Hyperlipidemia: atorvastatin 40 mg PO QHS. Please continue to monitor lipid levels (cholesterol = 177 mg/dL with LDL = 75 mg/dL on 05/12/21), and for myalgias. Please consider order repeat lipid levels as the patient does not have lipid levels documented for several years. 6. History of TIA: clopidogrel 75 mg PO daily. Please continue to monitor for s/s of TIA/stroke, for bleeding/excessive bruising, hemoglobin levels (Hgb = 6.9mg/dL on 09/13/23), and platelet count (plt = 149 K/mm3 on 09/13/23). Please consider re-ordering hemoglobin levels every day for the next several days to assess anemia as patient's hemoglobin is < 7 mg/dL today. 7. Iron deficiency anemia: ferrous sulfate 325 mg PO every other day with lunch.Please continue to monitor iron levels (iron = 95 ug/dL on 08/19/23), hemoglobin levels (Hgb = 6.9 mg/dL on 09/13/23), and for GI distress with iron administration. 8. Diabetes Mellitus II: insulin glargine 15 units SC daily, insulin lispro 10 units SC TID before meals. Please continue to monitor blood glucose readings (recent range 91-317 mg/dL), hemoglobin A1C levels (no recent hemoglobin A1C level documented), and for s/s of hyper/hypoglycemia. Please consider ordering ahemoglobin A1C level as the patient does not have a recent A1C documented. 9. GERD: pantoprazole 40 mg PO daily. Please continue to monitor for s/s of GERD, for diarrhea that could indicate clostridium difficile infection, and for s/s of bone resorption such as fractures. 10. Cough: guaifenesin/dextromethorphan 2 tablets PO BID. Please continue to monitor cough. 11. Restless legs: pramipexole 1.5 mg PO QHS. Please continue to monitor for restless legs, for constipation, nausea, dizziness, drowsiness, and edema. 12. Nutrition/vitamin D deficiency: cholecalciferol 25 mcg PO daily, multivitamin 1 tablet PO daily. Please continue to monitor for s/s of vitamin D deficiency, vitamin D levels (no recent vitamin D level documented), and generalnutritional status. Please consider ordering a vitamin D level to assess repletion status if clinically indicated. 13. Tinea corporis: miconazole 1 application BID. Please continue to monitor forresolution of tinea corporis. Assessment/Plan for indications treated with psychotropic medications: 1. Depression: duloxetine 30 mg PO BID. Please see provider note regarding stable chronic long-term use GDR not recommended. Please continue to monitor fordepression, for s/s of serotonin syndrome, sodium levels (Na = 142 mmol/L on 09/13/23), abdominal pain, drowsiness and headache. Medical chart and medication regimen reviewed. The following medication irregularities or issues were identified: 1. Hyperlipidemia: atorvastatin 40 mg PO QHS. Please consider order repeat lipidlevels as the patient does not have lipid levels documented for several years. 2. History of TIA: clopidogrel 75 mg PO daily. Please consider re-ordering hemoglobin levels every day for the next several days to assess anemia as patient's hemoglobin is < 7 mg/dL today. 3. Diabetes Mellitus II: insulin glargine 15 units SC daily, insulin lispro 10 units SC TID before meals. Please consider ordering a hemoglobin A1C level as the patient does not have a recent A1C documented. 4. Nutrition/vitamin D deficiency: cholecalciferol 25 mcg PO daily, multivitamin1 tablet PO daily. Please consider ordering a vitamin D level to assess repletion status if clinically indicated. Date Date of Note:: 09/13/23 Documented by User: Dr. Richy Pierson MD 09/13/23 10:30 TCU RX Drug Regimen Review Provider Comments Provider responsibility Provider Comments to Recommendations by Pharmacy: Agree 09/13/23 1019 <Electronically signed by Kota Herrera> Kota Herrera Cosignmarzena Signature (if applicable): 09/13/23 1030 <Electronically signed by Richy Pierson MD> CC: ~ Signed [facility] Work Phone: [phone] [phone] Discharge summary Author Juanoneal Esteves [facility] September 12, 2023 1:37pm Note Date/Time September 12, 2023 1:27pm [facility] Medical Records Department [address] [place] [address] [place] [address] Transfer to Extended Care MR#: [id number] Acct: [id number] Name: DICK ARTIS Rep #:[id number] : 1935 87 From: Juan Bee PCP: Dr. Mady Dunn MD Status:AD M IN Certification of patient admission REQUIRED AT TIME OF ADMISSION. I CERTIFY THAT POST-HOSPITAL ECF SERVICES ARE REQUIRED TO BE GIVEN ON AN IN-PATIENT BASIS BECAUSE OF THE ABOVE NAMED PATIENT'S NEED FOR RESIDENTIAL CARE ON A CONTINUING BASIS FOR THE CONDITION(S) FOR WHICH HE/SHE WAS RECEIVING IN-PATIENT HOSPITAL SERVICES PRIOR TO HIS/HER TRANSFER TO THE ECF. 09/12/23 1337<Electronically signed by Juan Esteves MD> Diet Diet Order/Speech Therapy: 09/11/23 13:53 Diet: Regular - General Food consistency:: Mechanical (Minced/Moist) Liquid Consistency:: Regular/Thin Dietary Modifications:: Potassium Restricted Is pt able to select menu?: Yes Diet Comments: with use of compensatory strategies Routine Orders/Code Status Suppository Type: Dulcolax 10mg Suppository Frequency: Daily PRN Code Status: Full Code Therapies Weight Bearing: Weight bearing as tolerated Extremity Affected:: Bilateral Lower Physical Therapy: Eval and Treat Occupational Therapy: Eval and Treat Speech Therapy: Eval and Treat Problem/Diagnosis (1) Hyperkalemia: Status: Acute Code(s): E87.5 - Hyperkalemia (2) CKD (chronic kidney disease), stage III: Status: Chronic Code(s): N18.30 - Chronic kidney disease, stage 3 unspecified (3) Acute hypoxic respiratory failure: Status: Acute Code(s): J96.01 - Acute respiratory failure with hypoxia Plan 1. Acute myocardial injury probably secondary to hypoxia from exacerbation of COPD and bilateral carotid stenosis: Patient is being admitted in PCU. 2D echo shows EF 70% with no regional wall motion abnormalities therefore does not seem acute MA. Normal RV systolic function, normal left and right atria. Normal mitral valve, mild TR, PASP 30 mmHg. Patient had high troponin 1220, 1240 and 1161. Previous troponins were negative. The patient was evaluated by siding coreboard inspector. Advised to continue home medications for chronic HFpEF, Coreg, losartan and spironolactone. Lasix as needed. 09/08: Lasix, losartan and spironolactone are on hold due to BERNARDO. Patient on baby aspirin and Plavix. Patient does not have chest pain. Manager Logistic has signed off on 09/04. Did not feel that she has MA due to atherosclerotic stenosis but due to heart failure and increased demand, type II. 09/09: Lasix 20 mg IV started 1 dose and probably home dose from tomorrow AM. 09/10: Home dose Lasix 40 mg resumed. Monitor electrolytes. 2. Acute hypoxic and hypercarbic combined respiratory failure due to acute COPDexacerbation due to multifocal pneumonia from influenza A. Early bacterial secondary infection:-patient is on aerosol treatments and is receiving IV Decadron, monitor pulse ox. Continue PT and OT 09/06/2023: Acute hypoxic respiratory failure due to COPD exacerbation and evolving right lower lobe, right upper lobe and left lower lobe multifocal pneumonia: Patient required 8 L of high flow oxygen in the morning. As per the nursing staff, she was also coughing was wet, tannish colored expectorate yesterday but not able to bring up any phlegm today. Repeat chest x-ray PA and lateral was done and individually reviewed. It shows evolving right lower lobe infiltrate, right upper lobe and left lower lobe infiltrate consistent with multifocal pneumonia. Started on IV Zosyn to cover for gram-positive, gram-negative and anaerobes. Pneumonia workup ordered. Discussed with the patient'sdaughter near the bedside. Patient is being managed on scheduled bronchodilator, steroid, Mucinex, incentive spirometry and Pep. BiPAP as needed 09/07: Patient got short of breath yesterday and continued overnight with increased oxygen requirement. ABG showed pH 7.33/pCO2 51/O2 69 seems on 7 L of oxygen. Patient was given Ativan 0.5 mg so that she can tolerate BiPAP. Influenza A, subtype H3 positive. Started on Tamiflu. Low-dose mirtazapine ordered from night. 09/08: Subjectively and objectively, shortness of breath/dyspnea has improved. Oxygen requirement improved from BiPAP to nasal cannula 4 L. Urinary antigens are negative. Continue above antibiotic. 09/09: Respiratory status is much improved. On 1 L of oxygen. Advised to continue incentive spirometry and PEP for 1 week 09/10: Patient today on 4 L of oxygen. 09/11: Repeat chest x-ray was done which shows no significant interstitial edema. Shows poor inspiration with bibasilar atelectasis. Normal mediastinum and hilar. Will keep Lasix 40 mm daily and aggressive bronchopulmonary hygiene. #3 spinal stenosis with right radicular pain and debility- PT and OT, patient remains on gabapentin, IV Decadron, and narcotics as needed for pain, again she is a poor surgical candidate to have any surgery done at this institution due toher comorbidities. Hospitalist colleague Dr. Noble Lynch discussed with the patient's son and advised to follow-up in tertiary care to spine surgeon to evaluate for surgery. 09/06: Patient on IV dexamethasone, decreased to 4 mg every 8 hourly 09/07: Decrease IV dexamethasone to 2 mg every 12 hourly. 5. Hypotension: Patient blood pressure in a.m. was 87/48 and Coreg was held. Later on BP improved to 118/85 and had Lasix, Aldactone and Cozaar which broughtdown the blood pressure down again 89/35, 90/32. Discussed with the nursing staff, space out all Lasix and Cozaar. Cozaar dose decreased 25 mg daily and switch to the evening time. 09/06: Blood pressure was also borderline but carvedilol dose decreased to 6.25 mg twice daily. 09/09: Blood pressure fluctuates. BP morning 154/55 currently 105/51 probably due to morning medication of carvedilol. 6. BERNARDO and hyperkalemia probably due to diuretic, spironolactone and potassium supplement: Patient on furosemide, potassium supplement and spironolactone whichis temporarily held. Her baseline creatinine about 1.2 increased to 1.76. IV fluid low-dose 50 mill per hour for 1 L. Repeat labs tomorrow AM. 09/07: Creatinine seems better creatinine 1.5 BUN 90. Serum potassium 6.0. Repeat BMP ordered and pending. 09/08: Serum potassium 5.4. BUN/creatinine 68/1.31. Shows improvement. 09/09: Creatinine 1.37. Continue to hold losartan and spironolactone. Potassium5.1. 09/11: Creatinine 1.24. Potassium level normal. 7. Severe anemia with history of chronic anemia from CKD/anemia of chronic disease: Hemoglobin decreased from 8.5-7.5. Her baseline creatinine runs between 9 to 10 g. Will discontinue heparin subcu. H&H at 8 PM and if less than 7 g will need transfusion. 09/09: Hemoglobin improved to 8.3. 09/10: Hemoglobin 7.7. Her iron studies from August 2022 shows ferritin 640, iron 95, TIBC 180 and iron saturation 52%. Consistent with anemia of chronic disease. Anxiety and depression: Patient had agitation to 3 days ago. Started on mirtazapine 15 mg daily. 09/10: Patient was more lethargic and weak. Dose of mirtazapine decreased to 7.5mg daily. Ativan dose decreased to 0.25 mg IV as needed if needed for BiPAP. Gabapentin dose decreased to 100 mg 3 times daily DVT prophylaxis: Patient was on heparin 500 subcutaneous twice daily. Had increased bleeding locally after subcu injection. Hemoglobin also dropped as mentioned above. Therefore heparin subcu DVT dose discontinued. Patient on aspirin and Plavix. Microbiology Past 72 Hours 09/09/23 15:50 Stool Stool Occult Blood (ROYAL) - Final 09/06/23 14:39 Blood Culture (Wb) - Right Forearm Blood Culture - Preliminary No growth in 48 hours. 09/06/23 14:36 Blood Culture (Wb) - Right Hand Blood Culture - Preliminary No growth in 48 hours. Laboratory Results 09/10/23 10:25: POC Glucose 149 H 09/10/23 11:46: POC Glucose 191 H 09/10/23 16:22: POC Glucose 120 H 09/10/23 22:45: POC Glucose 131 H 09/11/23 04:30: WBC 6.3, RBC 2.36 L, Hgb 7.7 L, Hct 24.7 L, MCV 104.7 H, MCH 32.6 H, MCHC 31.2 L, RDW Std Deviation 65.4 H, RDW Coeff of Ha 17.2 H, Plt Count 131 L, MPV 10.6, Immature Gran % (Auto) 10.900 H, Neut % (Auto) 72.1 H, Lymph % (Auto) 9.0 L, [place] % (Auto) 4.8, Eos % (Auto) 2.9, Baso % (Auto) 0.3, Absolute Neuts (auto) 4.5, Absolute Lymphs (auto) 0.56 L, Nucleated RBC % 0.5, Differential Comment SCANNED, Diff Path Review May foll, Anisocytosis 2+, [id number] H, Potassium 4.1, Chloride 112 H, Carbon Dioxide 32.0, Anion Gap 2 L, BUN 58H, Creatinine 1.24 H, Estim Creat Clear Calc 29.64, Est GFR (MDRD) Af Amer 53 L,Est GFR (MDRD) Non-Af 44 L, BUN/Creatinine Ratio 46.8 H, Glucose 83, Calcium 8.4L 09/11/23 07:39: POC Glucose 73 L Allergies/Procedures Done in Hospital Allergies lisinopril Allergy (Verified 09/03/23 09:41) edema aspirin Adverse Reaction (Verified 09/03/23 09:41) Upset Stomach Type of Care/Length of Stay Estimated LOS: Convalescent Care Less Than 30 days Type of Care Needed: Skilled Rehab Potential: Good Prognosis: Good Additional Orders/Day of Discharge Day of Discharge: 09/12/23 Dietary and Speech Recommendations Dietitian Recommendations/Changes: Continue Cardiac diet to manage medical conditions. Continue ensure compact BID with breakfast and dinner meals. Discharge Plan Admission Admit Date/Time: 09/03/23 13:07 Primary Reason for Your Visit: Acute hypoxic respiratory failure, pneumonia Attending Provider: Juan Esteves Primary Care Provider: Mady Dunn Consulting Providers: Juvenal Thompson; Noble Reynolds; Alisia Lawrence Discharge Orders/Prescriptions Prescriptions: New polyethylene glycol 3350 17 gram Powder In Packet 17 g PO DAILY Qty: 0 0RF sennosides-docusate sodium [Stool Softener-Stimulant Laxat] 8.6-50 mg Tablet 2 tab PO BID PRN (Reason: constipation) Qty: 0 0RF pantoprazole 40 mg Tablet,Delayed Release (Dr/Ec) 40 mg PO DAILY 30 Days Qty: 30 0RF ferrous sulfate [FeroSul] 325 mg (65 mg iron) Tablet 325 mg PO QODAY@LUNCH Qty: 0 0RF Mucinex DM 30-600 mg Tablet Extended Release 12 Hr 2 tab PO BID 7 Days Qty: 0 0RF aspirin 81 mg Tablet,Delayed Release (Dr/Ec) 81 mg PO BREAKFAST 30 Days Qty: 30 2RF insulin lispro [Humalog KwikPen Insulin] 100 unit/mL Insulin Pen See Protocol subcut ACHS Qty: 0 0RF Protocol: 4. Sliding Scale Insulin High-Med Dosing Condition: 150-199 mg/dl = 2 units Condition: 200-259 mg/dl = 4 units Condition: 260-324 mg/dl = 6 units Condition: 325-374 mg/dl = 8 units Condition: 375-409 mg/dl = 10 units Condition: 410-449 mg/dl = 11 units Condition: Greater than 449 call physician Protocol Text: - Use for Total Daily Dose of Insulin 56-80 units - Patient who are insulin resistant or septic HIGH MEDIUM DOSING ALGORITHM insulin lispro [Humalog KwikPen Insulin] 100 unit/mL Insulin Pen 10 unit subcut TIDAC Qty: 0 0RF insulin glargine [Lantus Solostar U-100 Insulin] 100 unit/mL (3 mL) insulin pen 15 unit subcut DAILY Qty: 15 2RF Rx Instructions: Hold if glucose less than 130 mg/dl dexamethasone 2 mg tablet See Rx Instructions .ROUTE .COMPLEX Qty: 12 0RF Rx Instructions: 2 mg orally twice daily for 3 days and then 2 mg once daily for 3 days, then 1 mg for 6 days and then stop Continued cholecalciferol (vitamin D3) 1,000 unit tablet 2,500 unit PO DAILY albuterol sulfate 2.5 mg /3 mL (0.083 %) solution for nebulization 2.5 mg inhalation Q4H PRN (Reason: shortness of breath or wheezing) ipratropium-albuterol 0.5 mg-3 mg(2.5 mg base)/3 mL solution for nebulization 3 ml inhalation Q6H PRN (Reason: shortness of breath) duloxetine 30 mg capsule,delayed release(DR/EC) 30 mg PO BID atorvastatin 40 MG tablet 40 mg PO QHS clopidogrel 75 MG tablet 75 mg PO DAILY multivitamin with folic acid 1 TABLET tablet 1 tab PO DAILY albuterol sulfate 90 mcg/actuation HFA aerosol inhaler 2 puff INHALATION BID PRN (Reason: shortness of breath or wheezing) pramipexole 1.5 mg tablet 1.5 mg PO QHS diclofenac sodium 1 % gel 1 inch TOPICAL DAILY PRN (Reason: unknown) Patient Comments: pt using, but unaware of directions furosemide 40 mg tablet 40 mg PO DAILY Qty: 90 3RF Hold Instructions: Hold for 2 days. carvedilol 12.5 mg tablet 12.5 mg PO BID Qty: 180 4RF Rx Instructions: must administer with a meal/food Changed budesonide 0.5 mg/2 mL suspension for nebulization 0.25 mg inhalation BID 30 Days Qty: 0 0RF losartan 50 mg tablet 25 mg PO DAILY Qty: 90 3RF Rx Instructions: Hold for SBP less than 130 mmHg Discontinued spironolactone 25 MG tablet 25 mg PO DAILY Hold Instructions: Hold until serum potassium drops to 4.0. dexamethasone 6 mg tablet 6 mg PO DAILY Qty: 7 0RF Hold Instructions: duplicate Patient Comments: states was to start this am prednisone 10 mg tablet 10 mg PO DAILY Patient Comments: pt was supposed to start this morning, was not able to Referrals / Follow Up: Shamir Delvalle DO [Med Staff - Active Staff] - Within 1 Month (Hypoxia, Pneumonia) Alisia Lawrence MD [Med Staff - Consulting] - Within 1 Month Mady Dunn MD [Primary Care Provider] - uJvenal Thompson MD [Med Staff - Active Staff] - Within 1 Month Disposition Disposition (needs filled in before D/C Order can be placed): [facility] Facility 09/12/23 1337 <Electronically signed by Juan Esteves MD> Cosigner Signature (if applicable): CC: Dr. Alisia Lawrence MD; Dr. Mady Dunn MD; Dr. Noble Reynolds DO; Dr. Juvenal Thompson MD ~ [facility] Work Phone: 1(440) 411-438202-26-2024 Progress note Author Alisia Lawrence [facility] September 12, 2023 1:03pm Note Date/Time September 12, 2023 1:03pm [facility] Medical Records Department [address] [place] [address] Progress Note - Nephrology 09/12/23 1301 MR#: [id number] Acct: [id number] Name: DICK ARTIS Rep #:[id number] : 1935 87 From: Alisia rios MD PCP: Dr. Mady Dunn MD Status:AD M IN Location: [place] [address] Subjective Subjective no new events Objective Data Objective Data Vital Signs: Vital Signs Temp Pulse Resp BP Pulse Ox O2 Del Method O2 Flow Rate 98 F 88 20 H 124/48 H 98 Nasal Cannula 4 09/12/23 08:31 09/12/23 08:31 09/12/23 08:31 09/12/23 08:31 09/12/23 10:29 09/12/23 10:00 09/12/23 10:29 FiO2 30 09/10/23 04:25 Oxygen Flow Rate (L/min) 4 Oxygen Delivery Method Nasal Cannula Weight: 66.361 kg Body Mass Index (BMI) 26.7 Intake & Output: Intake and Output for Last 24 Hours 09/10/23 09/11/23 09/12/23 23:59 23:59 23:59 Intake Total 150 / 150 1087.25 / 1087.25 200 / 200 Output Total 900 / 1000 1075 / 1475 600 / 600 Balance -750 / -850 12.25 / -387.75 -400 / -400 Lab / Micro Data 09/11/23 04:30 09/12/23 06:30 Labs: Laboratory Results - last 24 hr 09/11/23 16:12: POC Glucose 182 H 09/11/23 22:37: POC Glucose 132 H 09/12/23 06:30: Sodium 142, Potassium 4.4, Chloride 112 H, Carbon Dioxide 27.0, BUN 44 H, Creatinine 1.03 H, Estim Creat Clear Calc 35.68, Est GFR (MDRD) Af Amer 65, Est GFR (MDRD) Non-Af 54 L, BUN/Creatinine Ratio 42.7 H, Glucose 82, Calcium 8.7, Phosphorus 2.5, Albumin 1.6 L 09/12/23 08:08: POC Glucose 91 09/12/23 11:26: POC Glucose 159 H Micro: Microbiology 09/06/23 14:39 Blood Culture (Wb) - Right Forearm Blood Culture - Final No growth in 5 days. 09/06/23 14:36 Blood Culture (Wb) - Right Hand Blood Culture - Final No growth in 5 days. 09/09/23 15:50 Stool Stool Occult Blood (ROYAL) - Final 09/07/23 18:20 Urine Catheter - Turner Legionella Antigen - Final 09/07/23 18:20 Urine Catheter - Turner Streptococcus pneumoniae Antigen (M - Final 09/06/23 15:50 Mucosa - Nose Respiratory Panel (PCR) - Final Influenza A (Subtype H3) Rhythm Strip Rhythm Strip: Sinus Rhythm Rate: 95 Physical Exam Narrative alert and oriented x 3 S1S2 RRR lungs sounds coarse anteriorly no pitting edema Abdomen soft, nontender turner with clear yellow urine in bag Assessment & Plan Assessment/Plan (1) Hyperkalemia: (2) CKD (chronic kidney disease), stage III: (3) Acute hypoxic respiratory failure: PLAN: Plan Impression/Plan: This is an 87-year-old female with past medical history significant for hypertension, CKD, history of left kidney stone requiring cystoscopy, left ureteroscopy, stent placement and lithotripsy in 2011 who was admitted to the hospital on 09/03/2023 after presenting with complaints of shortness of breath. The patient is being treated for acute hypoxic respiratory failure from COPD exacerbation, pneumonia and influenza A. Nephrology is following for BERNARDO on CKDand hyperkalemia. BERNARDO on CKD stage G3a. Baseline serum creatinine is around 1.30 mg/dL. Serum creatinine increased to 1.50 mg/dL on 09/07/2023. BERNARDO is likely due to decreased BP/EBV. She was also on ARB, spironolactone and furosemide prior to admission. Since 09/07/2023, renal function has overall improved with taoist of BP. cr better Hyperkalemia. resolved 09/12/23 1303 <Electronically signed by Alisia Lawrence MD> Cosigner Signature (if applicable): CC: ~ Signed [facility] Work Phone: 1(446) 790-993502-25-2024 Progress note Author Erika Parsons tr [facility] September 11, 2023 6:04pm Note Date/Time September 11, 2023 5:12pm [facility] Medical Records Department [address] [place] [id number] Progress Note - Nephrology 09/11/23 1708 MR#: [id number] Acct: [id number] Name: DICK ARTIS Rep #:[id number] : 1935 87 From: Erika gan MD PCP: Dr. Mady Dunn MD Status:AD M IN Location: [place] [address] Subjective Subjective Following for BERNARDO on CKD and hyperkalemia. The patient denies chest pain, shortness of breath at rest, or nausea. Objective Data Objective Data Vital Signs: Vital Signs Temp Pulse Resp BP Pulse Ox O2 Del Method O2 Flow Rate 98.0 F 93 19 H 104/53 L 94 Nasal Cannula 3 09/11/23 16:13 09/11/23 16:13 09/11/23 16:13 09/11/23 16:13 09/11/23 16:13 09/11/23 16:16 09/11/23 16:16 FiO2 30 09/10/23 04:25 Oxygen Flow Rate (L/min) 3 Oxygen Delivery Method Nasal Cannula Weight: 66.361 kg Body Mass Index (BMI) 26.7 Intake & Output: Intake and Output for Last 24 Hours 09/09/23 09/10/23 09/11/23 23:59 23:59 23:59 Intake Total 1245.5 / 1245.5 150 / 150 370 / 370 Output Total 1750 / 1750 900 / 1000 500 / 500 Balance -504.5 / -504.5 -750 / -850 -130 / -130 Lab / Micro Data 09/11/23 04:30 09/11/23 04:30 Labs: Laboratory Results - last 24 hr 09/10/23 22:45: POC Glucose 131 H 09/11/23 04:30: WBC 6.3, RBC 2.36 L, Hgb 7.7 L, Hct 24.7 L, MCV 104.7 H, MCH 32.6 H, MCHC 31.2 L, RDW Std Deviation 65.4 H, RDW Coeff of Ha 17.2 H, Plt Count 131 L, MPV 10.6, Immature Gran % (Auto) 10.900 H, Neut % (Auto) 72.1 H, Lymph % (Auto) 9.0 L, [place] % (Auto) 4.8, Eos % (Auto) 2.9, Baso % (Auto) 0.3, Absolute Neuts (auto) 4.5, Absolute Lymphs (auto) 0.56 L, Nucleated RBC % 0.5, Differential Comment SCANNED, Diff Path Review May foll, Anisocytosis 2+, [id number] H, Potassium 4.1, Chloride 112 H, Carbon Dioxide 32.0, Anion Gap 2 L, BUN 58H, Creatinine 1.24 H, Estim Creat Clear Calc 29.64, Est GFR (MDRD) Af Amer 53 L,Est GFR (MDRD) Non-Af 44 L, BUN/Creatinine Ratio 46.8 H, Glucose 83, Calcium 8.4L 09/11/23 07:39: POC Glucose 73 L 09/11/23 11:55: POC Glucose 72 L 09/11/23 16:12: POC Glucose 182 H Micro: Microbiology 09/06/23 14:39 Blood Culture (Wb) - Right Forearm Blood Culture - Final No growth in 5 days. 09/06/23 14:36 Blood Culture (Wb) - Right Hand Blood Culture - Final No growth in 5 days. 09/09/23 15:50 Stool Stool Occult Blood (ROYAL) - Final 09/07/23 18:20 Urine Catheter - Turner Legionella Antigen - Final 09/07/23 18:20 Urine Catheter - Turner Streptococcus pneumoniae Antigen (M - Final 09/06/23 15:50 Mucosa - Nose Respiratory Panel (PCR) - Final Influenza A (Subtype H3) Radiography Diagnostic Testing: Radiology Impression Chest X-Ray 09/11/23 08:13 IMPRESSION: Poor inspiration with some bibasilar atelectasis. Electronically Signed: Yosi Price MD at 8:43 EST , Rhythm Strip Rhythm Strip: Sinus Rhythm Rate: 95 Physical Exam Narrative alert and oriented x 3 S1S2 RRR lungs sounds coarse anteriorly no pitting edema Abdomen soft, nontender turner with clear yellow urine in bag Assessment & Plan Assessment/Plan (1) Hyperkalemia: (2) CKD (chronic kidney disease), stage III: (3) Acute hypoxic respiratory failure: PLAN: Plan Impression/Plan: This is an 87-year-old female with past medical history significant for hypertension, CKD, history of left kidney stone requiring cystoscopy, left ureteroscopy, stent placement and lithotripsy in 2011 who was admitted to the hospital on 09/03/2023 after presenting with complaints of shortness of breath. The patient is being treated for acute hypoxic respiratory failure from COPD exacerbation, pneumonia and influenza A. Nephrology is following for BERNARDO on CKDand hyperkalemia. BERNARDO on CKD stage G3a. Baseline serum creatinine is around 1.30 mg/dL. Serum creatinine increased to 1.50 mg/dL on 09/07/2023. BERNARDO is likely due to decreased BP/EBV. She was also on ARB, spironolactone and furosemide prior to admission. Since 09/07/2023, renal function has overall improved with taoist of BP. Serum creatinine is down to 1.24 mg/dL today (09/11/2023). The patient did miss her dose of furosemide yesterday on 09/10/2023. Today repeated first day with furosemide. Will continue to hold losartan and spironolactone for now particularly since BP remains soft. Will continue to monitor renal function since the patient is being diuresed. Recheck renal function again tomorrow. Hyperkalemia. Serum potassium was as high as 6.0 on 09/07/2023. The patient had been on losartan and spironolactone. Patient was treated with temporizing measure and sodium polystyrene sulfonate. Potassium has improved and is most recently 4.1 mmol/L on 09/11/2023. ARB and MRA remains on hold because of soft BP. Recheck potassium level tomorrow. 09/11/231803 <Electronically signed by Erika Bell MD> Cosigner Signature (if applicable): CC: ~ Signed [facility] Work Phone: [phone]) 840-905502-25-2024 Progress note Author Juan Esteves [facility] September 11, 2023 10:21am Note Date/Time September 11, 2023 10:21am [facility] Medical Records Department [address] [place] [id number] Progress Note - Hospitalist 09/11/23 0953 MR#: [id number] Acct: [id number] Name: DICK ARTIS Rep #:[id number] : 1935 87 From: Juan Bee PCP: Dr. Mady Dunn MD Status:AD M IN Location: [id number]- [id number] Reason for Visit Reason for Visit: Diagnoses Hyperkalemia (09/03/23) Essential (primary) hypertension (09/03/23) Hypertensive heart disease with heart failure (09/03/23) Non-ST elevation (NSTEMI) myocardial infarction (09/03/23) Occlusion and stenosis of bilateral carotid arteries (09/03/23) Acute respiratory failure with hypoxia (09/03/23) Chronic kidney disease, stage 3 unspecified (09/03/23) Shortness of breath (09/03/23) Other specified abnormal findings of blood chemistry (09/03/23) Objective Data Objective Data Vital Signs: Vital Signs Temp Pulse Resp BP Pulse Ox O2 Del Method O2 Flow Rate 97.6 F L 88 20 H 118/42 L 97 Nasal Cannula 4 09/11/23 04:54 09/11/23 07:01 09/11/23 07:01 09/11/23 04:54 09/11/23 08:23 09/11/23 07:01 09/11/23 08:23 FiO2 30 09/10/23 04:25 Oxygen Flow Rate (L/min) 4 Oxygen Delivery Method Nasal Cannula Weight: 146 lb 4.815 oz Body Mass Index (BMI) 26.7 Intake & Output: Intake and Output for Last 24 Hours 09/09/23 09/10/23 09/11/23 23:59 23:59 23:59 Intake Total 1245.5 / 1245.5 150 / 150 50 / 50 Output Total 1750 / 1750 900 / 1000 500 / 500 Balance -504.5 / -504.5 -750 / -850 -450 / -450 Lab / Micro Data 09/11/23 04:30 09/11/23 04:30 Labs: Laboratory Results - last 24 hr 09/10/23 10:25: POC Glucose 149 H 09/10/23 11:46: POC Glucose 191 H 09/10/23 16:22: POC Glucose 120 H 09/10/23 22:45: POC Glucose 131 H 09/11/23 04:30: WBC 6.3, RBC 2.36 L, Hgb 7.7 L, Hct 24.7 L, MCV 104.7 H, MCH 32.6 H, MCHC 31.2 L, RDW Std Deviation 65.4 H, RDW Coeff of Ha 17.2 H, Plt Count 131 L, MPV 10.6, Immature Gran % (Auto) 10.900 H, Neut % (Auto) 72.1 H, Lymph % (Auto) 9.0 L, [place] % (Auto) 4.8, Eos % (Auto) 2.9, Baso % (Auto) 0.3, Absolute Neuts (auto) 4.5, Absolute Lymphs (auto) 0.56 L, Nucleated RBC % 0.5, Differential Comment SCANNED, Diff Path Review May foll, Anisocytosis 2+, [id number] H, Potassium 4.1, Chloride 112 H, Carbon Dioxide 32.0, Anion Gap 2 L, BUN 58H, Creatinine 1.24 H, Estim Creat Clear Calc 29.64, Est GFR (MDRD) Af Amer 53 L,Est GFR (MDRD) Non-Af 44 L, BUN/Creatinine Ratio 46.8 H, Glucose 83, Calcium 8.4L 09/11/23 07:39: POC Glucose 73 L Micro: Microbiology 09/09/23 15:50 Stool Stool Occult Blood (ROYAL) - Final 09/06/23 14:39 Blood Culture (Wb) - Right Forearm Blood Culture - Preliminary No growth in 48 hours. 09/06/23 14:36 Blood Culture (Wb) - Right Hand Blood Culture - Preliminary No growth in 48 hours. 09/07/23 18:20 Urine Catheter - Turner Legionella Antigen - Final 09/07/23 18:20 Urine Catheter - Turner Streptococcus pneumoniae Antigen (M - Final 09/06/23 15:50 Mucosa - Nose Respiratory Panel (PCR) - Final Influenza A (Subtype H3) Radiography Diagnostic Testing: Radiology Impression Chest X-Ray 09/11/23 08:13 IMPRESSION: Poor inspiration with some bibasilar atelectasis. Electronically Signed: Yosi Price MD at 8:43 EST , Rhythm Strip Rhythm Strip: Sinus Rhythm Rate: 95 Physical Exam Narrative Seen and examined. Shortness of breath is better. Her oxygen requirement increased to 4 L for last2 days. Reason unclear. Chest x-ray portable ordered. Subjectively patient feels better. Unfortunately pre-CERT on 09/08 otherwise patient is readyfor discharge to SNF. Denies chest pain pressure or tightness. On Tamiflu, last day for Influenza A came positive. Physical exam General: Awake, alert and oriented x 3. HEENT: Atraumatic, PERRLA, EOMI, Normocephalic Oral: Oral mucosa moist. Neck: Supple, No JVD, Negative Carotid Bruits Chest wall/Lungs: Air entry diminished in bilateral lung bases. Mild coarse crepitation in lung bases. Shortness of breath better. Cardiovascular: Regular rate, Regular Rhythm, Normal S1, Normal S2, No M/G/R Abdomen: Bowel Sounds Present, Soft, Non Tender, Non-Distended : No dysuria. No renal angle tenderness. No suprapubic tenderness. Extremities: Mild bilateral lower leg pitting edema, Capillary Refill Less than 3 Seconds Skin: No rashes, No breakdown Musculoskeletal: No Tenderness to Palpation of Joints or Extremities. ROM restricted. 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 Neurological: Cranial nerves II-XII grossly intact, DTR 2+/4. No acute focal neurological deficit. Psych/Mental Status: Flat affect. Assessment & Plan Assessment/Plan (1) Heart failure due to high blood pressure: (2) Non-STEMI (non-ST elevated myocardial infarction): PLAN: Plan 1. Acute myocardial injury probably secondary to hypoxia from exacerbation of COPD and bilateral carotid stenosis: Patient is being admitted in PCU. 2D echo shows EF 70% with no regional wall motion abnormalities therefore does not seem acute MA. Normal RV systolic function, normal left and right atria. Normal mitral valve, mild TR, PASP 30 mmHg. Patient had high troponin 1220, 1240 and 1161. Previous troponins were negative. The patient was evaluated by siding coreboard inspector. Advised to continue home medications for chronic HFpEF, Coreg, losartan and spironolactone. Lasix as needed. 09/08: Lasix, losartan and spironolactone are on hold due to BERNARDO. Patient on baby aspirin and Plavix. Patient does not have chest pain. Manager Logistic has signed off on 09/04. Did not feel that she has MA due to atherosclerotic stenosis but due to heart failure and increased demand, type II. 09/09: Lasix 20 mg IV started 1 dose and probably home dose from tomorrow AM. 09/10: Home dose Lasix 40 mg resumed. Monitor electrolytes. 2. Acute hypoxic and hypercarbic combined respiratory failure due to acute COPDexacerbation due to multifocal pneumonia from influenza A. Early bacterial secondary infection:-patient is on aerosol treatments and is receiving IV Decadron, monitor pulse ox. Continue PT and OT 09/06/2023: Acute hypoxic respiratory failure due to COPD exacerbation and evolving right lower lobe, right upper lobe and left lower lobe multifocal pneumonia: Patient required 8 L of high flow oxygen in the morning. As per the nursing staff, she was also coughing was wet, tannish colored expectorate yesterday but not able to bring up any phlegm today. Repeat chest x-ray PA and lateral was done and individually reviewed. It shows evolving right lower lobe infiltrate, right upper lobe and left lower lobe infiltrate consistent with multifocal pneumonia. Started on IV Zosyn to cover for gram-positive, gram-negative and anaerobes. Pneumonia workup ordered. Discussed with the patient'sdaughter near the bedside. Patient is being managed on scheduled bronchodilator, steroid, Mucinex, incentive spirometry and Pep. BiPAP as needed 09/07: Patient got short of breath yesterday and continued overnight with increased oxygen requirement. ABG showed pH 7.33/pCO2 51/O2 69 seems on 7 L of oxygen. Patient was given Ativan 0.5 mg so that she can tolerate BiPAP. Influenza A, subtype H3 positive. Started on Tamiflu. Low-dose mirtazapine ordered from night. 09/08: Subjectively and objectively, shortness of breath/dyspnea has improved. Oxygen requirement improved from BiPAP to nasal cannula 4 L. Urinary antigens are negative. Continue above antibiotic. 09/09: Respiratory status is much improved. On 1 L of oxygen. Advised to continue incentive spirometry and PEP for 1 week 09/10: Patient today on 4 L of oxygen. 09/11: Repeat chest x-ray was done which shows no significant interstitial edema. Shows poor inspiration with bibasilar atelectasis. Normal mediastinum and hilar. Will keep Lasix 40 mm daily and aggressive bronchopulmonary hygiene. #3 spinal stenosis with right radicular pain and debility- PT and OT, patient remains on gabapentin, IV Decadron, and narcotics as needed for pain, again she is a poor surgical candidate to have any surgery done at this institution due toher comorbidities. Hospitalist colleague Dr. Noble Lynch discussed with the patient's son and advised to follow-up in tertiary care to spine surgeon to evaluate for surgery. 09/06: Patient on IV dexamethasone, decreased to 4 mg every 8 hourly 09/07: Decrease IV dexamethasone to 2 mg every 12 hourly. 5. Hypotension: Patient blood pressure in a.m. was 87/48 and Coreg was held. Later on BP improved to 118/85 and had Lasix, Aldactone and Cozaar which broughtdown the blood pressure down again 89/35, 90/32. Discussed with the nursing staff, space out all Lasix and Cozaar. Cozaar dose decreased 25 mg daily and switch to the evening time. 09/06: Blood pressure was also borderline but carvedilol dose decreased to 6.25 mg twice daily. 09/09: Blood pressure fluctuates. BP morning 154/55 currently 105/51 probably due to morning medication of carvedilol. 6. BERNARDO and hyperkalemia probably due to diuretic, spironolactone and potassium supplement: Patient on furosemide, potassium supplement and spironolactone whichis temporarily held. Her baseline creatinine about 1.2 increased to 1.76. IV fluid low-dose 50 mill per hour for 1 L. Repeat labs tomorrow AM. 09/07: Creatinine seems better creatinine 1.5 BUN 90. Serum potassium 6.0. Repeat BMP ordered and pending. 09/08: Serum potassium 5.4. BUN/creatinine 68/1.31. Shows improvement. 09/09: Creatinine 1.37. Continue to hold losartan and spironolactone. Potassium5.1. 09/11: Creatinine 1.24. Potassium level normal. 7. Severe anemia with history of chronic anemia from CKD/anemia of chronic disease: Hemoglobin decreased from 8.5-7.5. Her baseline creatinine runs between 9 to 10 g. Will discontinue heparin subcu. H&H at 8 PM and if less than 7 g will need transfusion. 09/09: Hemoglobin improved to 8.3. 09/10: Hemoglobin 7.7. Her iron studies from August 2022 shows ferritin 640, iron 95, TIBC 180 and iron saturation 52%. Consistent with anemia of chronic disease. Anxiety and depression: Patient had agitation to 3 days ago. Started on mirtazapine 15 mg daily. 09/10: Patient was more lethargic and weak. Dose of mirtazapine decreased to 7.5mg daily. Ativan dose decreased to 0.25 mg IV as needed if needed for BiPAP. Gabapentin dose decreased to 100 mg 3 times daily DVT prophylaxis: Patient was on heparin 500 subcutaneous twice daily. Had increased bleeding locally after subcu injection. Hemoglobin also dropped as mentioned above. Therefore heparin subcu DVT dose discontinued. Patient on aspirin and Plavix. Microbiology Past 72 Hours 09/09/23 15:50 Stool Stool Occult Blood (ROYAL) - Final 09/06/23 14:39 Blood Culture (Wb) - Right Forearm Blood Culture - Preliminary No growth in 48 hours. 09/06/23 14:36 Blood Culture (Wb) - Right Hand Blood Culture - Preliminary No growth in 48 hours. Laboratory Results 09/10/23 10:25: POC Glucose 149 H 09/10/23 11:46: POC Glucose 191 H 09/10/23 16:22: POC Glucose 120 H 09/10/23 22:45: POC Glucose 131 H 09/11/23 04:30: WBC 6.3, RBC 2.36 L, Hgb 7.7 L, Hct 24.7 L, MCV 104.7 H, MCH 32.6 H, MCHC 31.2 L, RDW Std Deviation 65.4 H, RDW Coeff of Ha 17.2 H, Plt Count 131 L, MPV 10.6, Immature Gran % (Auto) 10.900 H, Neut % (Auto) 72.1 H, Lymph % (Auto) 9.0 L, [place] % (Auto) 4.8, Eos % (Auto) 2.9, Baso % (Auto) 0.3, Absolute Neuts (auto) 4.5, Absolute Lymphs (auto) 0.56 L, Nucleated RBC % 0.5, Differential Comment SCANNED, Diff Path Review May foll, Anisocytosis 2+, [id number] H, Potassium 4.1, Chloride 112 H, Carbon Dioxide 32.0, Anion Gap 2 L, BUN 58H, Creatinine 1.24 H, Estim Creat Clear Calc 29.64, Est GFR (MDRD) Af Amer 53 L,Est GFR (MDRD) Non-Af 44 L, BUN/Creatinine Ratio 46.8 H, Glucose 83, Calcium 8.4L 09/11/23 07:39: POC Glucose 73 L Charges/Coding Visit Charges Inpatient E&M: 55767 Subs Hosp L2 09/11/23 1021 <Electronically signed by Juan Esteves MD> Cosigner Signature (if applicable): CC: ~ Signed [facility] Work Phone: [phone]) 203-291002-24-2024 Progress note Author Erika Parsons tr [facility] September 10, 2023 7:48pm Note Date/Time September 10, 2023 7:40pm [facility] Medical Records Department [address] [place] [address] Progress Note - Nephrology 09/10/231929 MR#: [id number] Acct: [id number] Name: DICK ARTIS Rep #:[id number] : 1935 87 From: Erika gan MD PCP: Dr. Mady Dunn MD Status:AD M IN Location: [place] [address] Subjective Subjective Following for BERNARDO on CKD and hyperkalemia. The patient is less dyspneic. There is no chest pain or pressure. She still feels easily fatigued. Objective Data Objective Data Vital Signs: Vital Signs Temp Pulse Resp BP Pulse Ox O2 Del Method O2 Flow Rate 97.9 F 97 18 109/49 L 98 Nasal Cannula 4 09/10/23 18:00 09/10/23 18:00 09/10/23 18:00 09/10/23 18:00 09/10/23 18:00 09/10/23 18:00 09/10/23 18:00 FiO2 30 09/10/23 04:25 Oxygen Flow Rate (L/min) 4 Oxygen Delivery Method Nasal Cannula Weight: 66.361 kg Body Mass Index (BMI) 26.7 Intake & Output: Intake and Output for Last 24 Hours 09/08/23 09/09/23 09/10/23 23:59 23:59 23:59 Intake Total 1224.5 / 1224.5 1245.5 / 1245.5 150 / 150 Output Total 1675 / 1675 1750 / 1750 900 / 900 Balance -450.5 / -450.5 -504.5 / -504.5 -750 / -750 Lab / Micro Data 09/10/23 05:43 09/09/23 05:58 Labs: Laboratory Results - last 24 hr 09/09/23 20:19: POC Glucose 140 H 09/10/23 05:43: WBC 5.8, RBC 2.56 L, Hgb 8.0 L, Hct 26.0 L, MCV 101.6 H, MCH 31.3, MCHC 30.8 L, RDW Std Deviation 63.0 H, RDW Coeff of Ha 17.0 H, Plt Count 140 L, MPV 10.6, Neut % (Auto) Not Reportable, Absolute Neuts (auto) 4.2, Absolute Lymphs (auto) 1.04, Total Counted 100, Neutrophils % (Manual) 72 H, Band Neutrophils % 1, Lymphocytes % (Manual) 18 L, Monocytes % (Manual) 3, Eosinophils % (Manual) 3, Metamyelocytes % 1, Myelocytes % 2 H, Diff Path ReviewMay foll, Platelet Estimate SLT DEC, RBC Morphology N CYTIC, Hypochromasia 2+ 09/10/23 08:22: POC Glucose 76 09/10/23 10:25: POC Glucose 149 H 09/10/23 11:46: POC Glucose 191 H 09/10/23 16:22: POC Glucose 120 H Micro: Microbiology 09/09/23 15:50 Stool Stool Occult Blood (ROYAL) - Final 09/06/23 14:39 Blood Culture (Wb) - Right Forearm Blood Culture - Preliminary No growth in 48 hours. 09/06/23 14:36 Blood Culture (Wb) - Right Hand Blood Culture - Preliminary No growth in 48 hours. 09/07/23 18:20 Urine Catheter - Turner Legionella Antigen - Final 09/07/23 18:20 Urine Catheter - Turner Streptococcus pneumoniae Antigen (M - Final 09/06/23 15:50 Mucosa - Nose Respiratory Panel (PCR) - Final Influenza A (Subtype H3) Rhythm Strip Rhythm Strip: Sinus Rhythm Rate: 95 Physical Exam Narrative alert and oriented x 3 S1S2 RRR lungs sounds coarse anteriorly no pitting edema Abdomen soft, nontender turner with clear yellow urine in bag Assessment & Plan Assessment/Plan (1) Hyperkalemia: (2) CKD (chronic kidney disease), stage III: (3) Acute hypoxic respiratory failure: PLAN: Plan Impression/Plan: This is an 87-year-old female with past medical history significant for hypertension, CKD, history of left kidney stone requiring cystoscopy, left ureteroscopy, stent placement and lithotripsy in 2011 who was admitted to the hospital on 09/03/2023 after presenting with complaints of shortness of breath. The patient is admitted for treatment of acute hypoxic respiratory failure from COPD exacerbation, pneumonia and influenza A. Nephrology is following for BERNARDO on CKD and hyperkalemia. BERNARDO on CKD stage G3a. Baseline serum creatinine is around 1.30 mg/dL. Serum creatinine increased to 1.50 mg/dL on 09/07/2023. BERNARDO is likely due to decreased BP/EBV. She was also on ARB, spironolactone and furosemide prior to admission. Renal function has overall improved with taoist of BP. The most recent serum creatinine creatinine is close to baseline of 1.37 mg/dL on 09/09/2023. There is no new labs today. Will continue to hold losartan and spironolactone for now particularly since BP remains soft. Will continue to monitor renal function since she has been restarted on furosemide today. Recheck renal function again tomorrow. Hyperkalemia. Serum potassium was as high as 6.0 on 09/07/2023. The patient had been on losartan and spironolactone. Patient was treated with temporizing measure and sodium polystyrene sulfonate. Potassium has improved and is most recently 5.1 mmol/L on 09/09/2023. ARB and MRA remains on hold. Recheck potassium level tomorrow. 09/10/231947 <Electronically signed by Erika Bell MD> Cosigner Signature (if applicable): CC: ~ Signed [facility] Work Phone: [phone]) 502-195602-24-2024 Progress note Author Juan Esteves [facility] September 10, 2023 4:56pm Note Date/Time September 10, 2023 9:58am [facility] Medical Records Department [address] [place] [id number] Progress Note - Hospitalist 09/10/23 0958 MR#: [id number] Acct: [id number] Name: DICK ARTIS Rep #:[id number] : 1935 87 From: Juan Bee PCP: Dr. Mady Dunn MD Status:AD M IN Location: [place] [address] Reason for Visit Reason for Visit: Diagnoses Hyperkalemia (09/03/23) Essential (primary) hypertension (09/03/23) Hypertensive heart disease with heart failure (09/03/23) Non-ST elevation (NSTEMI) myocardial infarction (09/03/23) Occlusion and stenosis of bilateral carotid arteries (09/03/23) Acute respiratory failure with hypoxia (09/03/23) Chronic kidney disease, stage 3 unspecified (09/03/23) Shortness of breath (09/03/23) Other specified abnormal findings of blood chemistry (09/03/23) Objective Data Objective Data Vital Signs: Vital Signs Temp Pulse Resp BP Pulse Ox O2 Del Method O2 Flow Rate 98.3 F 85 17 95/41 L 94 Nasal Cannula 3 09/10/23 08:00 09/10/23 08:00 09/10/23 08:00 09/10/23 08:00 09/10/23 08:00 09/10/23 08:26 09/10/23 08:26 FiO2 30 09/10/23 04:25 Oxygen Flow Rate (L/min) 3 Oxygen Delivery Method Nasal Cannula Weight: 146 lb 4.815 oz Body Mass Index (BMI) 26.7 Intake & Output: Intake and Output for Last 24 Hours 09/08/23 09/09/23 09/10/23 23:59 23:59 23:59 Intake Total 1224.5 / 1224.5 1245.5 / 1245.5 50 / 50 Output Total 1675 / 1675 1750 / 1750 200 / 200 Balance -450.5 / -450.5 -504.5 / -504.5 -150 / -150 Lab / Micro Data 09/10/23 05:43 09/09/23 05:58 Labs: Laboratory Results - last 24 hr 09/09/23 11:52: POC Glucose 202 H 09/09/23 14:05: Vitamin B12 696, Folate 17.30 09/09/23 16:18: POC Glucose 167 H 09/09/23 20:19: POC Glucose 140 H 09/10/23 05:43: WBC 5.8, RBC 2.56 L, Hgb 8.0 L, Hct 26.0 L, MCV 101.6 H, MCH 31.3, MCHC 30.8 L, RDW Std Deviation 63.0 H, RDW Coeff of Ha 17.0 H, Plt Count 140 L, MPV 10.6, Neut % (Auto) Not Reportable, Absolute Neuts (auto) 4.2, Absolute Lymphs (auto) 1.04, Total Counted 100, Neutrophils % (Manual) 72 H, Band Neutrophils % 1, Lymphocytes % (Manual) 18 L, Monocytes % (Manual) 3, Eosinophils % (Manual) 3, Metamyelocytes % 1, Myelocytes % 2 H, Diff Path ReviewMay foll, Platelet Estimate SLT DEC, RBC Morphology N CYTIC, Hypochromasia 2+ 09/10/23 08:22: POC Glucose 76 Micro: Microbiology 09/09/23 15:50 Stool Stool Occult Blood (ROYAL) - Final 09/06/23 14:39 Blood Culture (Wb) - Right Forearm Blood Culture - Preliminary No growth in 48 hours. 09/06/23 14:36 Blood Culture (Wb) - Right Hand Blood Culture - Preliminary No growth in 48 hours. 09/07/23 18:20 Urine Catheter - Turner Legionella Antigen - Final 09/07/23 18:20 Urine Catheter - Turner Streptococcus pneumoniae Antigen (M - Final 09/06/23 15:50 Mucosa - Nose Respiratory Panel (PCR) - Final Influenza A (Subtype H3) Rhythm Strip Rhythm Strip: Sinus Rhythm Rate: 95 Physical Exam Narrative Seen and examined. Shortness of breath is better. Patient feels weak and fatigued. Subjectively patient feels better. Unfortunately pre-CERT on 09/08 otherwise patient is ready for discharge to SNF. Denies chest pain pressure or tightness. On Tamiflu for Influenza A came positive. Physical exam General: Awake, alert and oriented x 3. HEENT: Atraumatic, PERRLA, EOMI, Normocephalic Oral: Oral mucosa dry. Neck: Supple, No JVD, Negative Carotid Bruits Chest wall/Lungs: Air entry diminished in bilateral lung bases. Mild coarse crepitation in lung bases otherwise much improved. On oxygen. Cardiovascular: Regular rate, Regular Rhythm, Normal S1, Normal S2, No M/G/R Abdomen: Bowel Sounds Present, Soft, Non Tender, Non-Distended : No dysuria. No renal angle tenderness. No suprapubic tenderness. Extremities: Mild bilateral lower leg pitting edema, Capillary Refill Less than 3 Seconds Skin: No rashes, No breakdown Musculoskeletal: No Tenderness to Palpation of Joints or Extremities. ROM restricted. 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 Neurological: Cranial nerves II-XII grossly intact, DTR 2+/4. No acute focal neurological deficit. Psych/Mental Status: Flat affect. Assessment & Plan Assessment/Plan (1) Heart failure due to high blood pressure: (2) Non-STEMI (non-ST elevated myocardial infarction): PLAN: Plan 1. Acute myocardial injury probably secondary to hypoxia from exacerbation of COPD and bilateral carotid stenosis: Patient is being admitted in PCU. 2D echo shows EF 70% with no regional wall motion abnormalities therefore does not seem acute MA. Normal RV systolic function, normal left and right atria. Normal mitral valve, mild TR, PASP 30 mmHg. Patient had high troponin 1220, 1240 and 1161. Previous troponins were negative. The patient was evaluated by siding coreboard inspector. Advised to continue home medications for chronic HFpEF, Coreg, losartan and spironolactone. Lasix as needed. 09/08: Lasix, losartan and spironolactone are on hold due to BERNARDO. Patient on baby aspirin and Plavix. Patient does not have chest pain. Manager Logistic has signed off on 09/04. Did not feel that she has MA due to atherosclerotic stenosis but due to heart failure and increased demand, type II. 09/09: Lasix 20 mg IV started 1 dose and probably home dose from tomorrow AM. 09/10: Home dose Lasix 40 mg resumed. Monitor electrolytes. 2. Acute hypoxic and hypercarbic combined respiratory failure due to acute COPDexacerbation due to multifocal pneumonia from influenza A. Early bacterial secondary infection:-patient is on aerosol treatments and is receiving IV Decadron, monitor pulse ox. Continue PT and OT 09/06/2023: Acute hypoxic respiratory failure due to COPD exacerbation and evolving right lower lobe, right upper lobe and left lower lobe multifocal pneumonia: Patient required 8 L of high flow oxygen in the morning. As per the nursing staff, she was also coughing was wet, tannish colored expectorate yesterday but not able to bring up any phlegm today. Repeat chest x-ray PA and lateral was done and individually reviewed. It shows evolving right lower lobe infiltrate, right upper lobe and left lower lobe infiltrate consistent with multifocal pneumonia. Started on IV Zosyn to cover for gram-positive, gram-negative and anaerobes. Pneumonia workup ordered. Discussed with the patient'sebastienter near the bedside. Patient is being managed on scheduled bronchodilator, steroid, Mucinex, incentive spirometry and Pep. BiPAP as needed 09/07: Patient got short of breath yesterday and continued overnight with increased oxygen requirement. ABG showed pH 7.33/pCO2 51/O2 69 seems on 7 L of oxygen. Patient was given Ativan 0.5 mg so that she can tolerate BiPAP. Influenza A, subtype H3 positive. Started on Tamiflu. Low-dose mirtazapine ordered from night. 09/08: Subjectively and objectively, shortness of breath/dyspnea has improved. Oxygen requirement improved from BiPAP to nasal cannula 4 L. Urinary antigens are negative. Continue above antibiotic. 09/09: Respiratory status is much improved. On 1 L of oxygen. Advised to continue incentive spirometry and PEP for 1 week 09/10: Patient today on 4 L of oxygen. #3 spinal stenosis with right radicular pain and debility- PT and OT, patient remains on gabapentin, IV Decadron, and narcotics as needed for pain, again she is a poor surgical candidate to have any surgery done at this institution due toher comorbidities. Hospitalist colleague Dr. Noble Lynch discussed with the patient's son and advised to follow-up in tertiary care to spine surgeon to evaluate for surgery. 09/06: Patient on IV dexamethasone, decreased to 4 mg every 8 hourly 09/07: Decrease IV dexamethasone to 2 mg every 12 hourly. 5. Hypotension: Patient blood pressure in a.m. was 87/48 and Coreg was held. Later on BP improved to 118/85 and had Lasix, Aldactone and Cozaar which broughtdown the blood pressure down again 89/35, 90/32. Discussed with the nursing staff, space out all Lasix and Cozaar. Cozaar dose decreased 25 mg daily and switch to the evening time. 09/06: Blood pressure was also borderline but carvedilol dose decreased to 6.25 mg twice daily. 09/09: Blood pressure fluctuates. BP morning 154/55 currently 105/51 probably due to morning medication of carvedilol. 6. BERNARDO and hyperkalemia probably due to diuretic, spironolactone and potassium supplement: Patient on furosemide, potassium supplement and spironolactone whichis temporarily held. Her baseline creatinine about 1.2 increased to 1.76. IV fluid low-dose 50 mill per hour for 1 L. Repeat labs tomorrow AM. 09/07: Creatinine seems better creatinine 1.5 BUN 90. Serum potassium 6.0. Repeat BMP ordered and pending. 09/08: Serum potassium 5.4. BUN/creatinine 68/1.31. Shows improvement. 09/09: Creatinine 1.37. Continue to hold losartan and spironolactone. Potassium5.1. 7. Severe anemia with history of chronic anemia from CKD/anemia of chronic disease: Hemoglobin decreased from 8.5-7.5. Her baseline creatinine runs between 9 to 10 g. Will discontinue heparin subcu. H&H at 8 PM and if less than 7 g will need transfusion. 09/09: Hemoglobin improved to 8.3. Anxiety and depression: Patient had agitation to 3 days ago. Started on mirtazapine 15 mg daily. 09/10: Patient was more lethargic and weak. Dose of mirtazapine decreased to 7.5mg daily. Ativan dose decreased to 0.25 mg IV as needed if needed for BiPAP. Gabapentin dose decreased to 100 mg 3 times daily DVT prophylaxis: Patient was on heparin 500 subcutaneous twice daily. Had increased bleeding locally after subcu injection. Hemoglobin also dropped as mentioned above. Therefore heparin subcu DVT dose discontinued. Patient on aspirin and Plavix. Charges/Coding Visit Charges Inpatient E&M: 00439 Subs Hosp L2 09/10/23 5952 <Electronically signed by Juan Esteves MD> Cosigner Signature (if applicable): CC: ~ Signed [facility] Work Phone: [phone]) 229-501302-23-2024 Progress note Author Juan Esteves [facility] September 09, 2023 12:42pm Note Date/Time September 09, 2023 12:34pm [facility] Medical Records Department [address] [place] [address] Progress Note - Hospitalist 09/09/23 1228 MR#: [id number] Acct: [id number] Name: DICK ARTIS Rep #:[id number] : 1935 87 From: Juan Bee PCP: Dr. Mady Dunn MD Status:AD M IN Location: [place] [address] Reason for Visit Reason for Visit: Diagnoses Hyperkalemia (09/03/23) Essential (primary) hypertension (09/03/23) Hypertensive heart disease with heart failure (09/03/23) Non-ST elevation (NSTEMI) myocardial infarction (09/03/23) Occlusion and stenosis of bilateral carotid arteries (09/03/23) Acute respiratory failure with hypoxia (09/03/23) Chronic kidney disease, stage 3 unspecified (09/03/23) Shortness of breath (09/03/23) Other specified abnormal findings of blood chemistry (09/03/23) Objective Data Objective Data Vital Signs: Vital Signs Temp Pulse Resp BP Pulse Ox O2 Del Method O2 Flow Rate 97.6 F L 102 H 20 H 105/51 L 97 Nasal Cannula 2 09/09/23 10:05 09/09/23 10:05 09/09/23 10:05 09/09/23 10:05 09/09/23 10:05 09/09/23 10:05 09/09/23 10:05 FiO2 40 09/09/23 01:45 Oxygen Flow Rate (L/min) 2 Oxygen Delivery Method Nasal Cannula Weight: 146 lb 4.815 oz Body Mass Index (BMI) 26.7 Intake & Output: Intake and Output for Last 24 Hours 09/07/23 09/08/23 09/09/23 23:59 23:59 23:59 Intake Total 1390 / 1630 1224.5 / 1224.5 440 / 440 Output Total 2500 / 3000 1675 / 1675 800 / 800 Balance -1110 / -1370 -450.5 / -450.5 -360 / -360 Lab / Micro Data 09/09/23 05:58 09/09/23 05:58 Labs: Laboratory Results - last 24 hr 09/08/23 16:53: POC Glucose 136 H 09/08/23 19:55: Hgb 8.1 L, Hct 26.3 L 09/08/23 20:11: POC Glucose 258 H 09/09/23 05:58: WBC 6.8, RBC 2.61 L, Hgb 8.3 L, Hct 26.5 L, MCV 101.5 H, MCH 31.8, MCHC 31.3 L, RDW Std Deviation 62.4 H, RDW Coeff of Ha 16.9 H, Plt Count 126 L, MPV 10.4, Neut % (Auto) Not Reportable, Absolute Neuts (auto) 5.5, Absolute Lymphs (auto) 0.61 L, Total Counted 100, Neutrophils % (Manual) 75 H, Band Neutrophils % 6 H, Lymphocytes % (Manual) 9 L, Monocytes % (Manual) 3, Eosinophils % (Manual) 2, Metamyelocytes % 2 H, Myelocytes % 3 H, Nucleated RBCs/100 WBC 1, Diff Path Review May foll, Toxic Vacuolation 1+, Platelet Estimate SLT DEC, Anisocytosis 1+, Sodium 143, Potassium 5.1, Chloride 111 H, Carbon Dioxide 29.0, Anion Gap 3 L, BUN 66 H, Creatinine 1.37 H, Estim Creat Clear Calc 26.83, Est GFR (MDRD) Af Amer 47 L, Est GFR (MDRD) Non-Af 39 L, BUN/Creatinine Ratio 48.2 H, Glucose 172 H, Calcium 9.2 09/09/23 07:38: POC Glucose 117 H 09/09/23 11:52: POC Glucose 202 H Micro: Microbiology 09/06/23 14:39 Blood Culture (Wb) - Right Forearm Blood Culture - Preliminary No growth in 48 hours. 09/06/23 14:36 Blood Culture (Wb) - Right Hand Blood Culture - Preliminary No growth in 48 hours. 09/07/23 18:20 Urine Catheter - Turner Legionella Antigen - Final 09/07/23 18:20 Urine Catheter - Turner Streptococcus pneumoniae Antigen (M - Final 09/06/23 15:50 Mucosa - Nose Respiratory Panel (PCR) - Final Influenza A (Subtype H3) Rhythm Strip Rhythm Strip: Sinus Rhythm Rate: 95 Physical Exam Narrative Seen and examined. Shortness of breath is better. On 2 L of oxygen. Subjectively patient feels better. Unfortunately pre-CERT yesterday otherwise patient is ready fordischarge to SNF. Denies chest pain pressure or tightness. On Tamiflu for Influenza A came positive. Physical exam General: Awake, alert and oriented x 3. HEENT: Atraumatic, PERRLA, EOMI, Normocephalic Oral: Oral mucosa dry. Neck: Supple, No JVD, Negative Carotid Bruits Chest wall/Lungs: Air entry diminished in bilateral lung bases. Mild coarse crepitation in lung bases otherwise much improved. On oxygen. Cardiovascular: Regular rate, Regular Rhythm, Normal S1, Normal S2, No M/G/R Abdomen: Bowel Sounds Present, Soft, Non Tender, Non-Distended : No dysuria. No renal angle tenderness. No suprapubic tenderness. Extremities: Mild bilateral lower leg pitting edema, Capillary Refill Less than 3 Seconds Skin: No rashes, No breakdown Musculoskeletal: No Tenderness to Palpation of Joints or Extremities. ROM restricted. 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 Neurological: Cranial nerves II-XII grossly intact, DTR 2+/4. No acute focal neurological deficit. Psych/Mental Status: Flat affect. Assessment & Plan Assessment/Plan (1) Heart failure due to high blood pressure: (2) Non-STEMI (non-ST elevated myocardial infarction): PLAN: Plan 1. Acute myocardial injury probably secondary to hypoxia from exacerbation of COPD and bilateral carotid stenosis: Patient is being admitted in PCU. 2D echo shows EF 70% with no regional wall motion abnormalities therefore does not seem acute MA. Normal RV systolic function, normal left and right atria. Normal mitral valve, mild TR, PASP 30 mmHg. Patient had high troponin 1220, 1240 and 1161. Previous troponins were negative. The patient was evaluated by siding coreboard inspector. Advised to continue home medications for chronic HFpEF, Coreg, losartan and spironolactone. Lasix as needed. 09/08: Lasix, losartan and spironolactone are on hold due to BERNARDO. Patient on baby aspirin and Plavix. Patient does not have chest pain. Manager Logistic has signed off on 09/04. Did not feel that she has MA due to atherosclerotic stenosis but due to heart failure and increased demand, type II. 09/09: Lasix 20 mg IV started 1 dose and probably home dose from tomorrow AM. 2. Acute hypoxic and hypercarbic combined respiratory failure due to acute COPDexacerbation due to multifocal pneumonia from influenza A. Early bacterial secondary infection:-patient is on aerosol treatments and is receiving IV Decadron, monitor pulse ox. Continue PT and OT 09/06/2023: Acute hypoxic respiratory failure due to COPD exacerbation and evolving right lower lobe, right upper lobe and left lower lobe multifocal pneumonia: Patient required 8 L of high flow oxygen in the morning. As per the nursing staff, she was also coughing was wet, tannish colored expectorate yesterday but not able to bring up any phlegm today. Repeat chest x-ray PA and lateral was done and individually reviewed. It shows evolving right lower lobe infiltrate, right upper lobe and left lower lobe infiltrate consistent with multifocal pneumonia. Started on IV Zosyn to cover for gram-positive, gram-negative and anaerobes. Pneumonia workup ordered. Discussed with the patient'kinzaaughter near the bedside. Patient is being managed on scheduled bronchodilator, steroid, Mucinex, incentive spirometry and Pep. BiPAP as needed 09/07: Patient got short of breath yesterday and continued overnight with increased oxygen requirement. ABG showed pH 7.33/pCO2 51/O2 69 seems on 7 L of oxygen. Patient was given Ativan 0.5 mg so that she can tolerate BiPAP. Influenza A, subtype H3 positive. Started on Tamiflu. Low-dose mirtazapine ordered from night. 09/08: Subjectively and objectively, shortness of breath/dyspnea has improved. Oxygen requirement improved from BiPAP to nasal cannula 4 L. Urinary antigens are negative. Continue above antibiotic. 09/09: Respiratory status is much improved. On 1 L of oxygen. Advised to continue incentive spirometry and PEP for 1 week #3 spinal stenosis with right radicular pain and debility- PT and OT, patient remains on gabapentin, IV Decadron, and narcotics as needed for pain, again she is a poor surgical candidate to have any surgery done at this institution due toher comorbidities. Hospitalist colleague Dr. Noble Lynch discussed with the patient's son and advised to follow-up in tertiary care to spine surgeon to evaluate for surgery. 09/06: Patient on IV dexamethasone, decreased to 4 mg every 8 hourly 09/07: Decrease IV dexamethasone to 2 mg every 12 hourly. 5. Hypotension: Patient blood pressure in a.m. was 87/48 and Coreg was held. Later on BP improved to 118/85 and had Lasix, Aldactone and Cozaar which broughtdown the blood pressure down again 89/35, 90/32. Discussed with the nursing staff, space out all Lasix and Cozaar. Cozaar dose decreased 25 mg daily and switch to the evening time. 09/06: Blood pressure was also borderline but carvedilol dose decreased to 6.25 mg twice daily. 09/09: Blood pressure fluctuates. BP morning 154/55 currently 105/51 probably due to morning medication of carvedilol. 6. BERNARDO and hyperkalemia probably due to diuretic, spironolactone and potassium supplement: Patient on furosemide, potassium supplement and spironolactone whichis temporarily held. Her baseline creatinine about 1.2 increased to 1.76. IV fluid low-dose 50 mill per hour for 1 L. Repeat labs tomorrow AM. 09/07: Creatinine seems better creatinine 1.5 BUN 90. Serum potassium 6.0. Repeat BMP ordered and pending. 09/08: Serum potassium 5.4. BUN/creatinine 68/1.31. Shows improvement. 09/09: Creatinine 1.37. Continue to hold losartan and spironolactone. Potassium5.1. 7. Severe anemia with history of chronic anemia from CKD/anemia of chronic disease: Hemoglobin decreased from 8.5-7.5. Her baseline creatinine runs between 9 to 10 g. Will discontinue heparin subcu. H&H at 8 PM and if less than 7 g will need transfusion. 09/09: Hemoglobin improved to 8.3. DVT prophylaxis: Patient was on heparin 500 subcutaneous twice daily. Had increased bleeding locally after subcu injection. Hemoglobin also dropped as mentioned above. Therefore heparin subcu DVT dose discontinued. Patient on aspirin and Plavix. Charges/Coding Visit Charges Inpatient E&M: 72310 Subs Hosp L2 09/09/23 1242 <Electronically signed by Juan Esteves MD> Cosigner Signature (if applicable): CC: ~ Signed [facility] Work Phone: [phone]) 987-844702-23-2024 Progress note Author Alisia Lawrence [facility] September 09, 2023 12:18pm Note Date/Time September 09, 2023 12:18pm [facility] Medical Records Department [address] [place] [id number] Progress Note - Nephrology 09/09/23 1216 MR#: [id number] Acct: [id number] Name: DICK ARTIS Rep #:[id number] : 1935 87 From: Alisia rios MD PCP: Dr. Mady Dunn MD Status:AD M IN Location: [place] [address] Subjective Subjective no new events Objective Data Objective Data Vital Signs: Vital Signs Temp Pulse Resp BP Pulse Ox O2 Del Method O2 Flow Rate 97.6 F L 102 H 20 H 105/51 L 97 Nasal Cannula 2 09/09/23 10:05 09/09/23 10:05 09/09/23 10:05 09/09/23 10:05 09/09/23 10:05 09/09/23 10:05 09/09/23 10:05 FiO2 40 09/09/23 01:45 Oxygen Flow Rate (L/min) 2 Oxygen Delivery Method Nasal Cannula Weight: 66.361 kg Body Mass Index (BMI) 26.7 Intake & Output: Intake and Output for Last 24 Hours 09/07/23 09/08/23 09/09/23 23:59 23:59 23:59 Intake Total 1390 / 1630 1224.5 / 1224.5 440 / 440 Output Total 2500 / 3000 1675 / 1675 800 / 800 Balance -1110 / -1370 -450.5 / -450.5 -360 / -360 Lab / Micro Data 09/09/23 05:58 09/09/23 05:58 Labs: Laboratory Results - last 24 hr 09/08/23 16:53: POC Glucose 136 H 09/08/23 19:55: Hgb 8.1 L, Hct 26.3 L 09/08/23 20:11: POC Glucose 258 H 09/09/23 05:58: WBC 6.8, RBC 2.61 L, Hgb 8.3 L, Hct 26.5 L, MCV 101.5 H, MCH 31.8, MCHC 31.3 L, RDW Std Deviation 62.4 H, RDW Coeff of Ha 16.9 H, Plt Count 126 L, MPV 10.4, Neut % (Auto) Not Reportable, Absolute Neuts (auto) 5.5, Absolute Lymphs (auto) 0.61 L, Total Counted 100, Neutrophils % (Manual) 75 H, Band Neutrophils % 6 H, Lymphocytes % (Manual) 9 L, Monocytes % (Manual) 3, Eosinophils % (Manual) 2, Metamyelocytes % 2 H, Myelocytes % 3 H, Nucleated RBCs/100 WBC 1, Diff Path Review May foll, Toxic Vacuolation 1+, Platelet Estimate SLT DEC, Anisocytosis 1+, Sodium 143, Potassium 5.1, Chloride 111 H, Carbon Dioxide 29.0, Anion Gap 3 L, BUN 66 H, Creatinine 1.37 H, Estim Creat Clear Calc 26.83, Est GFR (MDRD) Af Amer 47 L, Est GFR (MDRD) Non-Af 39 L, BUN/Creatinine Ratio 48.2 H, Glucose 172 H, Calcium 9.2 09/09/23 07:38: POC Glucose 117 H Micro: Microbiology 09/06/23 14:39 Blood Culture (Wb) - Right Forearm Blood Culture - Preliminary No growth in 48 hours. 09/06/23 14:36 Blood Culture (Wb) - Right Hand Blood Culture - Preliminary No growth in 48 hours. 09/07/23 18:20 Urine Catheter - [place] Legionella Antigen - Final 09/07/23 18:20 Urine Catheter - [place] Streptococcus pneumoniae Antigen (M - Final 09/06/23 15:50 Mucosa - Nose Respiratory Panel (PCR) - Final Influenza A (Subtype H3) Rhythm Strip Rhythm Strip: Sinus Rhythm Rate: 95 Physical Exam Narrative alert and oriented x 3 S1S2 RRR lungs sounds coarse anteriorly no pitting edema Abdomen soft, nontender turner with clear yellow urine in bag Assessment & Plan Assessment/Plan (1) Hyperkalemia: (2) CKD (chronic kidney disease), stage III: (3) Acute hypoxic respiratory failure: PLAN: Plan This is an 87-year-old female with past medical history significant for hypertension, CKD, history of left kidney stone requiring cystoscopy, left ureteroscopy, stent placement and lithotripsy in 2011 who was admitted to the hospital after presenting with complaints of shortness of breath, admitted for acute hypoxic respiratory failure from COPD exacerbation, pneumonia and influenza A. Also noted to have detectable troponin levels. Nephrology consulted in view of elevated creatinine and hyperkalemia. - CKD stage IIIa; stable - Pneumonia, influenza; on IV antibiotics, IV steroids, tamiflu and breathing treatments. Volume status appears to be compensated. Hyperkalemia. K is better 09/09/23 1218 <Electronically signed by Alisia Lawrence MD> Cosigner Signature (if applicable): CC: ~ Signed [facility] Work Phone: 1(937) 744-273502-23-2024 Progress note Author Alisia Lawrence [facility] September 09, 2023 11:13am Note Date/Time September 08, 2023 11:26am [facility] Medical Records Department [address] [place] [address] Progress Note - Nephrology 09/08/23 1119 MR#: [id number] Acct: [id number] Name: DICK ARTIS Rep #:[id number] : 1935 87 From: Varsha trotter NP-C PCP: Dr. Mady Dunn MD Status:AD M IN Location: [place] [address] Subjective Subjective Sitting in chair. No overnight events. Reports feeling much better today and breathing is better today. Objective Data Objective Data Vital Signs: Vital Signs Temp Pulse Resp BP Pulse Ox O2 Del Method O2 Flow Rate 98.0 F 93 20 H 106/45 L 93 Nasal Cannula 4 09/08/23 10:00 09/08/23 10:00 09/08/23 10:00 09/08/23 10:00 09/08/23 11:13 09/08/23 11:13 09/08/23 11:13 FiO2 40 09/08/23 02:05 Oxygen Flow Rate (L/min) 4 Oxygen Delivery Method Nasal Cannula Weight: 66.361 kg Body Mass Index (BMI) 26.7 Intake & Output: Intake and Output for Last 24 Hours 09/06/23 09/07/23 09/08/23 23:59 23:59 23:59 Intake Total 1010 / 1010 1390 / 1630 530 / 530 Output Total 1100 / 1100 2500 / 3000 900 / 900 Balance -90 / -90 -1110 / -1370 -370 / -370 Lab / Micro Data 09/08/23 06:30 09/08/23 06:30 Labs: Laboratory Results - last 24 hr 09/07/23 11:35: POC Glucose 192 H 09/07/23 15:30: Potassium 5.5 H 09/07/23 18:20: Urine Color Yellow, Urine Clarity Clear, Urine pH 6.0, Ur Specific Ir[place]ide 1.015, Urine Protein 30 H, Urine Glucose (UA) Normal, Urine Ketones Negative, Urine Occult Blood 25 H, Urine Nitrite Negative, Urine Bilirubin Negative, Urine Urobilinogen Normal, Ur Leukocyte Esterase 25 H, UrineRBC 5-10 SEEN, Urine WBC 0 SEEN, Ur Squamous Epith Cells 0 SEEN, Urine Bacteria 0 SEEN, Urine Mucus 0 SEEN 09/07/23 18:27: POC Glucose 197 H 09/07/23 19:59: POC Glucose 172 H 09/08/23 05:47: POC Glucose 182 H 09/08/23 06:30: WBC 7.3, RBC 2.39 L, Hgb 7.5 L, Hct 24.2 L, MCV 101.3 H, MCH 31.4, MCHC 31.0 L, RDW Std Deviation 61.3 H, RDW Coeff of Ha 16.8 H, Plt Count 120 L, MPV 10.3, Immature Gran % (Auto) 2.200 H, Neut % (Auto) 87.0 H, Lymph % (Auto) 6.1 L, [place] % (Auto) 4.4, Eos % (Auto) 0.0, Baso % (Auto) 0.3, Absolute Neuts (auto) 6.3, Absolute Lymphs (auto) 0.44 L, Nucleated RBC % 0.3, Differential Comment SCANNED, Microcytosis 3+, Sodium 141, Potassium 5.4 H, Chloride 110 H, Carbon Dioxide 29.0, Anion Gap 2 L, BUN 68 H, Creatinine 1.31 H,Estim Creat Clear Calc 28.06, Est GFR (MDRD) Af Amer 50 L, Est GFR (MDRD) Non-Af41 L, BUN/Creatinine Ratio 51.9 H, Glucose 180 H, Calcium 9.2 Micro: Microbiology 09/07/23 18:20 Urine Catheter - Turner Legionella Antigen - Final 09/07/23 18:20 Urine Catheter - Turner Streptococcus pneumoniae Antigen (M - Final 09/06/23 15:50 Mucosa - Nose Respiratory Panel (PCR) - Final Influenza A (Subtype H3) Rhythm Strip Rhythm Strip: Sinus Rhythm Rate: 95 Physical Exam Narrative alert and oriented x 3 S1S2 RRR lungs sounds coarse anteriorly no pitting edema Abdomen soft, nontender turner with clear yellow urine in bag Assessment & Plan Assessment/Plan (1) Hyperkalemia: (2) CKD (chronic kidney disease), stage III: (3) Acute hypoxic respiratory failure: PLAN: Plan This is an 87-year-old female with past medical history significant for hypertension, CKD, history of left kidney stone requiring cystoscopy, left ureteroscopy, stent placement and lithotripsy in 2011 who was admitted to the hospital after presenting with complaints of shortness of breath, admitted for acute hypoxic respiratory failure from COPD exacerbation, pneumonia and influenza A. Also noted to have detectable troponin levels. Nephrology consulted in view of elevated creatinine and hyperkalemia. - CKD stage III; past creatinine trends, patient has had elevated creatinine since 2017, baseline creatinine ranging around 1.5 mg/dL. On admission patient's creatinine was 1.2, it peaked to 1.7 on September 06 and today her creatinine is 1.31. Patient had been on losartan but this was stopped due to hypotension (she has not received any doses over the past few days). Patient was also noted to have elevated potassium level of 5.6 --> peaked 6.0 (received dextrose, calcium gluconate, insulin, Kayexalate, albuterol) and started low K+ diet--> K+ 5.4 today. Potassium supplement and aldactone have been stopped. UA protein 30, 25 occult blood but patient has turner. Patient had CT abdomen in December 2022 which did not show any hydronephrosis - Pneumonia, influenza; on IV antibiotics, IV steroids, tamiful and breathing treatments. she is still requiring oxygen and wore high flow O2/ Bipap at night. Volume status appears to be compensated. - Blood pressures were low but have improved, patient is only on Coreg. - detectable troponin level. Cardiology consulted, no plan for invasive evaluation at this time. Echo from this admission showed normal left ventricular, left ventricular systolic function normal, EF 70%. 09/08/23 1127 <Electronically signed by Varsha GUILLEN> Cosigner Signature (if applicable): 09/09/23 1113 <Electronically signed by Alisia Lawrence MD> CC: ~ Signed [facility] Work Phone: 1(987) 534-922002-22-2024 Progress note Author Juan Esteves [facility] September 08, 2023 12:21pm Note Date/Time September 08, 2023 12:21pm [facility] Medical Records Department [address] [place] [address] Progress Note - Hospitalist 09/08/23 1203 MR#: [id number] Acct: [id number] Name: DICK ARTIS Rep #:[id number] : 1935 87 From: Juan Bee PCP: Dr. Mady Dunn MD Status:AD M IN Location: [place] [id number] Reason for Visit Reason for Visit: Diagnoses Hyperkalemia (09/03/23) Essential (primary) hypertension (09/03/23) Hypertensive heart disease with heart failure (09/03/23) Non-ST elevation (NSTEMI) myocardial infarction (09/03/23) Occlusion and stenosis of bilateral carotid arteries (09/03/23) Acute respiratory failure with hypoxia (09/03/23) Chronic kidney disease, stage 3 unspecified (09/03/23) Shortness of breath (09/03/23) Other specified abnormal findings of blood chemistry (09/03/23) Objective Data Objective Data Vital Signs: Vital Signs Temp Pulse Resp BP Pulse Ox O2 Del Method O2 Flow Rate 98.0 F 93 20 H 106/45 L 96 Nasal Cannula 4 09/08/23 10:00 09/08/23 10:00 09/08/23 10:00 09/08/23 10:00 09/08/23 11:36 09/08/23 11:36 09/08/23 11:36 FiO2 40 09/08/23 02:05 Oxygen Flow Rate (L/min) 4 Oxygen Delivery Method Nasal Cannula Weight: 146 lb 4.815 oz Body Mass Index (BMI) 26.7 Intake & Output: Intake and Output for Last 24 Hours 09/06/23 09/07/23 09/08/23 23:59 23:59 23:59 Intake Total 1010 / 1010 1390 / 1630 580 / 580 Output Total 1100 / 1100 2500 / 3000 900 / 900 Balance -90 / -90 -1110 / -1370 -320 / -320 Lab / Micro Data 09/08/23 06:30 09/08/23 06:30 Labs: Laboratory Results - last 24 hr 09/07/23 15:30: Potassium 5.5 H 09/07/23 18:20: Urine Color Yellow, Urine Clarity Clear, Urine pH 6.0, Ur Specific [place] 1.015, Urine Protein 30 H, Urine Glucose (UA) Normal, Urine Ketones Negative, Urine Occult Blood 25 H, Urine Nitrite Negative, Urine Bilirubin Negative, Urine Urobilinogen Normal, Ur Leukocyte Esterase 25 H, UrineRBC 5-10 SEEN, Urine WBC 0 SEEN, Ur Squamous Epith Cells 0 SEEN, Urine Bacteria 0 SEEN, Urine Mucus 0 SEEN 09/07/23 18:27: POC Glucose 197 H 09/07/23 19:59: POC Glucose 172 H 09/08/23 05:47: POC Glucose 182 H 09/08/23 06:30: WBC 7.3, RBC 2.39 L, Hgb 7.5 L, Hct 24.2 L, MCV 101.3 H, MCH 31.4, MCHC 31.0 L, RDW Std Deviation 61.3 H, RDW Coeff of Ha 16.8 H, Plt Count 120 L, MPV 10.3, Immature Gran % (Auto) 2.200 H, Neut % (Auto) 87.0 H, Lymph % (Auto) 6.1 L, [place] % (Auto) 4.4, Eos % (Auto) 0.0, Baso % (Auto) 0.3, Absolute Neuts (auto) 6.3, Absolute Lymphs (auto) 0.44 L, Nucleated RBC % 0.3, Differential Comment SCANNED, Microcytosis 3+, Sodium 141, Potassium 5.4 H, Chloride 110 H, Carbon Dioxide 29.0, Anion Gap 2 L, BUN 68 H, Creatinine 1.31 H,Estim Creat Clear Calc 28.06, Est GFR (MDRD) Af Amer 50 L, Est GFR (MDRD) Non-Af41 L, BUN/Creatinine Ratio 51.9 H, Glucose 180 H, Calcium 9.2 09/08/23 11:34: POC Glucose 200 H Micro: Microbiology 09/07/23 18:20 Urine Catheter - Turner Legionella Antigen - Final 09/07/23 18:20 Urine Catheter - Turner Streptococcus pneumoniae Antigen (M - Final 09/06/23 15:50 Mucosa - Nose Respiratory Panel (PCR) - Final Influenza A (Subtype H3) Rhythm Strip Rhythm Strip: Sinus Rhythm Rate: 95 Physical Exam Narrative Seen and examined. Patient subjectively stated that shortness of breath is better as compared to yesterday. On 4 L of oxygen which she is also improved compared to yesterday. Denies chest pain pressure or tightness. Influenza A came positive. Physical exam General: Awake, alert and oriented x 3. HEENT: Atraumatic, PERRLA, EOMI, Normocephalic Oral: On BiPAP. Neck: Supple, No JVD, Negative Carotid Bruits Chest wall/Lungs: Air entry diminished in bilateral lung bases. Bilateral rhonchi heard present. On oxygen. Cardiovascular: Regular rate, Regular Rhythm, Normal S1, Normal S2, No M/G/R Abdomen: Bowel Sounds Present, Soft, Non Tender, Non-Distended : No dysuria. No renal angle tenderness. No suprapubic tenderness. Extremities: Mild bilateral lower leg pitting edema, Capillary Refill Less than 3 Seconds Skin: No rashes, No breakdown Musculoskeletal: No Tenderness to Palpation of Joints or Extremities. ROM restricted. 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 Neurological: Cranial nerves II-XII grossly intact, DTR 2+/4. No acute focal neurological deficit. Psych/Mental Status: Flat affect. Assessment & Plan Assessment/Plan (1) Heart failure due to high blood pressure: (2) Non-STEMI (non-ST elevated myocardial infarction): PLAN: Plan 1. Acute myocardial injury probably secondary to hypoxia from exacerbation of COPD and bilateral carotid stenosis: Patient is being admitted in PCU. 2D echo shows EF 70% with no regional wall motion abnormalities therefore does not seem acute MA. Normal RV systolic function, normal left and right atria. Normal mitral valve, mild TR, PASP 30 mmHg. Patient had high troponin 1220, 1240 and 1161. Previous troponins were negative. The patient was evaluated by siding coreboard inspector. Advised to continue home medications for chronic HFpEF, Coreg, losartan and spironolactone. Lasix as needed. 09/08: Lasix, losartan and spironolactone are on hold due to BERNARDO. Patient on baby aspirin and Plavix. Patient does not have chest pain. Manager Logistic has signed off on 09/04. Did not feel that she has MA due to atherosclerotic stenosis but due to heart failure and increased demand, type II. 2. Acute hypoxic and hypercarbic combined respiratory failure due to acute COPDexacerbation due to multifocal pneumonia from influenza A. Early bacterial secondary infection:-patient is on aerosol treatments and is receiving IV Decadron, monitor pulse ox. Continue PT and OT 09/06/2023: Acute hypoxic respiratory failure due to COPD exacerbation and evolving right lower lobe, right upper lobe and left lower lobe multifocal pneumonia: Patient required 8 L of high flow oxygen in the morning. As per the nursing staff, she was also coughing was wet, tannish colored expectorate yesterday but not able to bring up any phlegm today. Repeat chest x-ray PA and lateral was done and individually reviewed. It shows evolving right lower lobe infiltrate, right upper lobe and left lower lobe infiltrate consistent with multifocal pneumonia. Started on IV Zosyn to cover for gram-positive, gram-negative and anaerobes. Pneumonia workup ordered. Discussed with the patient'sdaughter near the bedside. Patient is being managed on scheduled bronchodilator, steroid, Mucinex, incentive spirometry and Pep. BiPAP as needed 09/07: Patient got short of breath yesterday and continued overnight with increased oxygen requirement. ABG showed pH 7.33/pCO2 51/O2 69 seems on 7 L of oxygen. Patient was given Ativan 0.5 mg so that she can tolerate BiPAP. Influenza A, subtype H3 positive. Started on Tamiflu. Low-dose mirtazapine ordered from night. 09/08: Subjectively and objectively, shortness of breath/dyspnea has improved. Oxygen requirement improved from BiPAP to nasal cannula 4 L. Urinary antigens are negative. Continue above antibiotic. #3 spinal stenosis with right radicular pain and debility- PT and OT, patient remains on gabapentin, IV Decadron, and narcotics as needed for pain, again she is a poor surgical candidate to have any surgery done at this institution due toher comorbidities. Hospitalist colleague Dr. Noble Lynch discussed with the patient's son and advised to follow-up in tertiary care to spine surgeon to evaluate for surgery. 09/06: Patient on IV dexamethasone, decreased to 4 mg every 8 hourly 5. Hypotension: Patient blood pressure in a.m. was 87/48 and Coreg was held. Later on BP improved to 118/85 and had Lasix, Aldactone and Cozaar which broughtdown the blood pressure down again 89/35, 90/32. Discussed with the nursing staff, space out all Lasix and Cozaar. Cozaar dose decreased 25 mg daily and switch to the evening time. 09/06: Blood pressure was also borderline but carvedilol dose decreased to 6.25 mg twice daily. 6. BERNARDO and hyperkalemia probably due to diuretic, spironolactone and potassium supplement: Patient on furosemide, potassium supplement and spironolactone whichis temporarily held. Her baseline creatinine about 1.2 increased to 1.76. IV fluid low-dose 50 mill per hour for 1 L. Repeat labs tomorrow AM. 09/07: Creatinine seems better creatinine 1.5 BUN 90. Serum potassium 6.0. Repeat BMP ordered and pending. 09/08: Serum potassium 5.4. BUN/creatinine 68/1.31. Shows improvement. 7. Severe anemia with history of chronic anemia from CKD/anemia of chronic disease: Hemoglobin decreased from 8.5-7.5. Her baseline creatinine runs between 9 to 10 g. Will discontinue heparin subcu. H&H at 8 PM and if less than 7 g will need transfusion. DVT prophylaxis: Patient was on heparin 500 subcutaneous twice daily. Had increased bleeding locally after subcu injection. Hemoglobin also dropped as mentioned above. Therefore heparin subcu DVT dose discontinued. Patient on aspirin and Plavix. Microbiology Past 72 Hours 09/07/23 18:20 Urine Catheter - Turner Legionella Antigen - Final 09/07/23 18:20 Urine Catheter - Turner Streptococcus pneumoniae Antigen (M - Final 09/06/23 15:50 Mucosa - Nose Respiratory Panel (PCR) - Final Influenza A (Subtype H3) Laboratory Results 09/07/23 15:30: Potassium 5.5 H 09/07/23 18:20: Urine Color Yellow, Urine Clarity Clear, Urine pH 6.0, Ur Specific [place] 1.015, Urine Protein 30 H, Urine Glucose (UA) Normal, Urine Ketones Negative, Urine Occult Blood 25 H, Urine Nitrite Negative, Urine Bilirubin Negative, Urine Urobilinogen Normal, Ur Leukocyte Esterase 25 H, UrineRBC 5-10 SEEN, Urine WBC 0 SEEN, Ur Squamous Epith Cells 0 SEEN, Urine Bacteria 0 SEEN, Urine Mucus 0 SEEN 09/07/23 18:27: POC Glucose 197 H 09/07/23 19:59: POC Glucose 172 H 09/08/23 05:47: POC Glucose 182 H 09/08/23 06:30: WBC 7.3, RBC 2.39 L, Hgb 7.5 L, Hct 24.2 L, MCV 101.3 H, MCH 31.4, MCHC 31.0 L, RDW Std Deviation 61.3 H, RDW Coeff of Ha 16.8 H, Plt Count 120 L, MPV 10.3, Immature Gran % (Auto) 2.200 H, Neut % (Auto) 87.0 H, Lymph % (Auto) 6.1 L, [place] % (Auto) 4.4, Eos % (Auto) 0.0, Baso % (Auto) 0.3, Absolute Neuts (auto) 6.3, Absolute Lymphs (auto) 0.44 L, Nucleated RBC % 0.3, Differential Comment SCANNED, Microcytosis 3+, Sodium 141, Potassium 5.4 H, Chloride 110 H, Carbon Dioxide 29.0, Anion Gap 2 L, BUN 68 H, Creatinine 1.31 H,Estim Creat Clear Calc 28.06, Est GFR (MDRD) Af Amer 50 L, Est GFR (MDRD) Non-Af41 L, BUN/Creatinine Ratio 51.9 H, Glucose 180 H, Calcium 9.2 09/08/23 11:34: POC Glucose 200 H Charges/Coding Visit Charges Inpatient E&M: 67597 Subs Hosp L2 09/08/23 1221 <Electronically signed by Juan Esteves MD> Cosigner Signature (if applicable): CC: ~ Signed [facility] Work Phone: [phone]) 543-775402-21-2024 Consult note Author Alisia Lawrence [facility] September 07, 2023 3:09pm Note Date/Time September 07, 2023 12:07pm [facility] Medical Records Department [address] [place] [address] Consultation - Nephrology 09/07/23 1206 MR#: [id number] Acct: [id number] Name: DICK ARTIS Rep #:[id number] : 1935 87 From: Varsha trotter AUDIO SPECIALIST-C PCP: Dr. Mady Dunn MD Status:AD M IN Location: [place] [address] Assessment & Plan Assessment/Plan (1) Hyperkalemia: (2) CKD (chronic kidney disease), stage III: (3) Acute hypoxic respiratory failure: PLAN: Plan This is an 87-year-old female with past medical history significant for hypertension, CKD, history of left kidney stone requiring cystoscopy, left ureteroscopy, stent placement and lithotripsy in 2011 who was admitted to the hospital after presenting with complaints of shortness of breath, admitted for acute hypoxic respiratory failure from COPD exacerbation, pneumonia and influenza A. Also noted to have detectable troponin levels. Nephrology consulted in view of elevated creatinine and hyperkalemia. Patient reports she hasnot been seen by front end mechanic in the past. In reviewing past creatinine trends,patient has had elevated creatinine since 2017, baseline creatinine ranging around 1.5 mg/dL. On admission patient's creatinine was 1.2, it peaked to 1.7 on September 06 and today her creatinine is 1.5. Patient had been on losartan but this was stopped due to hypotension (she has not received any doses over thepast few days). Patient was also noted to have elevated potassium level of 5.6 yesterday, her potassium this morning went up to 6.0. This morning patient received dextrose, calcium gluconate, insulin, Kayexalate, albuterol. Potassiumsupplements have been stopped (last received potassium yesterday), repeat potassium 5.8. Will add low potassium diet restrictions. Will repeat serum potassium later today. Patient is nonoliguric. Patient is on IV antibiotics, IV steroids, she is still requiring oxygen and has been declining Bipap at night. Volume status appears to be compensated. There is no acute indication for renal replacement therapy, CKD is at baseline. Patient had CT abdomen in December 2022 which did not show any hydronephrosis. Will obtain UA. Blood pressureswere low but have improved, patient is only on Coreg. Patient was noted to havedetectable troponin level. Cardiology consulted, no plan for invasive evaluation at this time. Echo from this admission showed normal left ventricular, left ventricular systolic function normal, EF 70%. Further orders forthcoming as hospitalization evolves, thank you for allowing us to participatein the care of Ms. Artis. HPI Consult Data Date of Consult: 09/07/23 HPI Narrative HPI Narrative: DICK ARTIS, is a 87 F with PMH significant for hypertension, COPD, dyslipidemia, chronic kidney disease who was admitted to the hospital on September 03 after presenting to the emergency room with complaints of shortness of breath. She was admitted for exacerbation of COPD, also noted to be influenza positive. Also noted to have elevated troponin levels. Nephrology consulted in view of elevated creatinine and hyperkalemia. Patient is alert andoriented but having difficult time recalling recent events. She states she doesnot follow with front end mechanic. In reviewing past creatinine trends patient has had elevated creatinine dating back to at least 2016. Creatinine was 1.2 on admission, peaked 1.7 on September 06 and today her creatinine is 1.50. Potassium was 4.8 on admission, early this morning potassium 6.0 after receivingIV medical therapy and Kayexalate patient potassium is now 5.8. [facility] Medical History (Updated 09/07/23 @ 12:17 by WILMER Hamilton) Bilateral carotid artery stenosis Chronic kidney disease Claudication Diverticulosis Dyslipidemia Essential hypertension History of COPD History of TIA (transient ischemic attack) Leg edema Limb weakness Muscle spasm of left shoulder area Neck and back pain PAD (peripheral artery disease) Renal cyst RLS (restless legs syndrome) Shortness of breath Shoulder pain TIA (transient ischemic attack) Vertigo Home Medications atorvastatin 40 mg tablet 40 mg PO QHS cholesterol 02/22/16 [History Last Taken 09/02/23] clopidogrel 75 mg tablet 75 mg PO DAILY BLOOD THINNER 02/22/16 [History Last Taken 09/02/23] multivitamin with folic acid 400 mcg tablet 1 tab PO DAILY supplement 02/22/16 [History Last Taken 09/02/23] spironolactone 25 mg tablet 25 mg PO DAILY FLUID RETENTION 02/22/16 [History Last Taken 06/19/23] albuterol sulfate 90 mcg/actuation aerosol inhaler 2 puff inhalation BID PRN shortness of breath or wheezing 03/16/18 [History Last Taken 09/02/23] cholecalciferol (vitamin D3) 25 mcg (1,000 unit) tablet 2,500 unit PO DAILY SUPPLEMENT 10/09/18 [History Last Taken 09/02/23] furosemide 40 mg tablet 40 mg PO DAILY FLUID RETENTION #90 tabs 01/27/22 [Rx Last Taken 09/02/23] albuterol sulfate 2.5 mg/3 mL (0.083 %) solution for nebulization 2.5 mg inhalation Q4H PRN shortness of breath or wheezing 05/28/22 [History Last Taken 09/02/23] ipratropium 0.5 mg-albuterol 3 mg (2.5 mg base)/3 mL nebulization soln 3 ml inhalation Q6H PRN shortness of breath 05/28/22 [History Last Taken 09/02/23] budesonide 0.5 mg/2 mL suspension for nebulization 0.25 mg inhalation TID PRN shortness of breath 12/06/22 [History Last Taken 09/02/23] carvedilol 12.5 mg tablet 12.5 mg PO BID CHOLESTEROL #180 tabs 04/27/23 [Rx Last Taken 09/02/23] losartan 50 mg tablet 50 mg PO DAILY BLOOD PRESSURE #90 tabs 08/01/23 [Rx Last Taken 09/02/23] duloxetine 30 mg capsule,delayed release 30 mg PO BID pain 08/17/23 [History Last Taken 09/02/23] pramipexole 1.5 mg tablet 1.5 mg PO QHS restless leg syndrome 08/18/23 [History Last Taken 09/02/23] dexamethasone 6 mg tablet 6 mg PO DAILY #7 tabs 08/20/23 [Rx Last Taken Unknown] diclofenac sodium 1 % topical gel topical 09/03/23 [History Last Taken Unknown] prednisone 10 mg tablet 10 mg PO DAILY 09/03/23 [History Last Taken Unknown] Allergy/AdvReac Type Severity Reaction Status Date / Time lisinopril Allergy edema Verified 09/03/23 09:41 aspirin AdvReac Upset Verified 09/03/23 09:41 Stomach Family History Mother Heart disease Surgical History History of basal cell carcinoma excision History of carotid angioplasty History of kidney stones History of thyroid surgery History of total hysterectomy Social History household members: none housing: house Smoking Status: Former smoker how long ago did patient quit smokin years ago alcohol intake: current alcohol intake frequency: holidays/special occasions only details: rare substance use type: does not use caffeine: Yes Type: coffee Number of servings: 1 ROS ROS Narrative as in HPI and PMH Physical Exam Narrative alert and oriented but drowsy, no apparent distress S1S2 RRR lungs sounds coarse anteriorly but clears with cough and deep breath no pitting edema turner with clear yellow urine in bag Lab / Micro Data 09/07/23 04:05 09/07/23 09:15 Labs: Laboratory Results - last 24 hr 09/06/23 16:07: POC Glucose 273 H 09/06/23 17:50: MRSA (PCR) Negative 09/06/23 20:02: POC Glucose 241 H 09/07/23 04:05: WBC 6.8, RBC 2.45 L, Hgb 7.8 L, Hct 25.1 L, MCV 102.4 H, MCH 31.8, MCHC 31.1 L, RDW Std Deviation 62.7 H, RDW Coeff of Ha 16.7 H, Plt Count 132 L, MPV 10.7, Immature Gran % (Auto) 0.600, Neut % (Auto) 85.1 H, Lymph % (Auto) 6.4 L, [place] % (Auto) 7.8, Eos % (Auto) 0.0, Baso % (Auto) 0.1, Absolute Neuts (auto) 5.8, Absolute Lymphs (auto) 0.43 L, Nucleated RBC % 0.4, Differential Comment SCANNED, Sodium 138, Potassium 6.0 H*, Chloride 107, CarbonDioxide 28.0, Anion Gap 3 L, BUN 90 H, Creatinine 1.50 H, Estim Creat Clear Calc24.50, Est GFR (MDRD) Af Amer 42 L, Est GFR (MDRD) Non-Af 35 L, BUN/Creatinine Ratio 60.0 H, Glucose 178 H, Calcium 8.7 09/07/23 06:03: POC Glucose 158 H 09/07/23 09:15: Sodium 139, Potassium 5.8 H, Chloride 110 H, Carbon Dioxide 27.0, Anion Gap 2 L, BUN 83 H, Creatinine 1.50 H, Estim Creat Clear Calc 24.50, Est GFR (MDRD) Af Amer 42 L, Est GFR (MDRD) Non-Af 35 L, BUN/Creatinine Ratio 55.3 H, Glucose 157 H, Calcium 9.0 09/07/23 10:12: POC Glucose 150 H 09/07/23 11:35: POC Glucose 192 H Micro: Microbiology 09/06/23 15:50 Mucosa - Nose Respiratory Panel (PCR) - Final Influenza A (Subtype H3) ABG Data ABG results: ABG 09/06/23 21:19 Specimen Type ART Sample Site R Radial pH 7.33 L Bicarbonate Actual 26.8 H Total CO2 28 Base Excess 1 O2 Saturation 92 L O2 % 7.0 ABG pCO2 51.2 H ABG pO2 69 L Jac Test Positive O2 Delivery Device Cannula Vent Mode Not entered Rhythm Strip Rhythm Strip: Sinus Rhythm Rate: 95 Imaging Radiology Impression Chest X-Ray 09/06/23 09:30 IMPRESSION: Progressive right lower lobe infiltrate with increased markings in the right upper lobe and left lower pole. Electronically Signed: Ramos Jolley MD at 13:31 EST , 09/07/23 1236 <Electronically signed by Varsha GUILLEN> Cosigner Signature (if applicable): 09/07/23 1509 <Electronically signed by Alisia Lawrence MD> CC: Dr. Alisia Lawrence MD; Dr. Mady Dunn MD; Dr. Noble Reynolds DO; Dr. Juvenal Thompson MD~ Signed [facility] Work Phone: 1(400) 420-692802-21-2024 Progress note Author [facility] September 07, 2023 9:36am Note Date/Time September 07, 2023 9:27am [facility] Medical Records Department [address] [place] [address] Progress Note - Hospitalist 09/07/23914 MR#: [id number] Acct: [id number] Name: DICK ARITS Rep #:[id number] : 1935 87 From: Juan Bee PCP: Dr. Mady Dunn MD Status:AD M IN [facility] Reason for Visit Reason for Visit: Diagnoses Essential (primary) hypertension (09/03/23) Hypertensive heart disease with heart failure (09/03/23) Non-ST elevation (NSTEMI) myocardial infarction (09/03/23) Occlusion and stenosis of bilateral carotid arteries (09/03/23) Shortness of breath (09/03/23) Other specified abnormal findings of blood chemistry (09/03/23) Objective Data Objective Data Vital Signs: Vital Signs Temp Pulse Resp BP Pulse Ox O2 Del Method O2 Flow Rate 97.9 F 75 18 113/41 L 98 High Flow 6 09/07/23 06:00 09/07/23 06:51 09/07/23 06:51 09/07/23 06:00 09/07/23 08:15 09/07/23 06:51 09/07/23 06:51 FiO2 50 09/07/23 04:44 Oxygen Flow Rate (L/min) 6 Oxygen Delivery Method High Flow Weight: 146 lb 4.815 oz Body Mass Index (BMI) 26.7 Intake & Output: Intake and Output for Last 24 Hours 09/05/23 09/06/23 09/07/23 23:59 23:59 23:59 Intake Total 1730 / 1970 1010 / 1010 1100 / 1100 Output Total 750 / 1150 1100 / 1100 1500 / 1500 Balance 980 / 820 -90 / -90 -400 / -400 Lab / Micro Data 09/07/23 04:05 09/07/23 04:05 Labs: Laboratory Results - last 24 hr 09/06/23 11:04: WBC 8.2, RBC 2.67 L, Hgb 8.5 L, Hct 27.3 L, MCV 102.2 H, MCH 31.8, MCHC 31.1 L, RDW Std Deviation 62.6 H, RDW Coeff of Ha 16.8 H, Plt Count 147 L, MPV 10.7, Immature Gran % (Auto) 0.600, Neut % (Auto) 88.4 H, Lymph % (Auto) 4.3 L, [place] % (Auto) 6.5, Eos % (Auto) 0.0, Baso % (Auto) 0.2, Absolute Neuts (auto) 7.2, Absolute Lymphs (auto) 0.35 L, Nucleated RBC % 0, Sodium 137, Potassium 5.6 H, Chloride 103, Carbon Dioxide 26.0, Anion Gap 8, BUN 90 H, Creatinine 1.76 H, Estim Creat Clear Calc 20.88, Est GFR (MDRD) Af Amer 35 L, Est GFR (MDRD) Non-Af 29 L, BUN/Creatinine Ratio 51.1 H, Glucose 427 H, Calcium 9.1 09/06/23 16:07: POC Glucose 273 H 09/06/23 17:50: MRSA (PCR) Negative 09/06/23 20:02: POC Glucose 241 H 09/07/23 04:05: WBC 6.8, RBC 2.45 L, Hgb 7.8 L, Hct 25.1 L, MCV 102.4 H, MCH 31.8, MCHC 31.1 L, RDW Std Deviation 62.7 H, RDW Coeff of Ha 16.7 H, Plt Count 132 L, MPV 10.7, Immature Gran % (Auto) 0.600, Neut % (Auto) 85.1 H, Lymph % (Auto) 6.4 L, [place] % (Auto) 7.8, Eos % (Auto) 0.0, Baso % (Auto) 0.1, Absolute Neuts (auto) 5.8, Absolute Lymphs (auto) 0.43 L, Nucleated RBC % 0.4, Differential Comment SCANNED, Sodium 138, Potassium 6.0 H*, Chloride 107, CarbonDioxide 28.0, Anion Gap 3 L, BUN 90 H, Creatinine 1.50 H, Estim Creat Clear Calc24.50, Est GFR (MDRD) Af Amer 42 L, Est GFR (MDRD) Non-Af 35 L, BUN/Creatinine Ratio 60.0 H, Glucose 178 H, Calcium 8.7 09/07/23 06:03: POC Glucose 158 H Micro: Microbiology 09/06/23 15:50 Mucosa - Nose Respiratory Panel (PCR) - Final Influenza A (Subtype H3) ABG Data ABG results: ABG 09/06/23 21:19 Specimen Type ART Sample Site R Radial pH 7.33 L Bicarbonate Actual 26.8 H Total CO2 28 Base Excess 1 O2 Saturation 92 L O2 % 7.0 ABG pCO2 51.2 H ABG pO2 69 L Jac Test Positive O2 Delivery Device Cannula Vent Mode Not entered Radiography Diagnostic Testing: Radiology Impression Chest X-Ray 09/06/23 09:30 IMPRESSION: Progressive right lower lobe infiltrate with increased markings in the right upper lobe and left lower pole. Electronically Signed: Ramos Jolley MD at 13:31 EST , Rhythm Strip Rhythm Strip: Sinus Rhythm Rate: 95 Physical Exam Narrative Seen and examined. Patient was short of breath last night.ABG was done. Patient put on BiPAP. Influenza A came positive. Patient was admitted for shortness of breath and lumbar back pain with radiationto her right leg suggestive of sciatica pain. Physical exam General: Confused and disoriented probably due to Ativan. HEENT: Atraumatic, PERRLA, EOMI, Normocephalic Oral: On BiPAP. Neck: Supple, No JVD, Negative Carotid Bruits Chest wall/Lungs: Air entry diminished in bilateral lung bases. Bilateral rhonchi and coarse crepitations. Dyspnea at rest. Cardiovascular: Regular rate, Regular Rhythm, Normal S1, Normal S2, No M/G/R Abdomen: Bowel Sounds Present, Soft, Non Tender, Non-Distended : No dysuria. No renal angle tenderness. No suprapubic tenderness. Extremities: Mild bilateral lower leg pitting edema, Capillary Refill Less than 3 Seconds Skin: No rashes, No breakdown Musculoskeletal: No Tenderness to Palpation of Joints or Extremities Neurological: Cranial nerves II-XII grossly intact, DTR 2+/4. No acute focal neurological deficit. Psych/Mental Status: Flat affect. Assessment & Plan Assessment/Plan (1) Heart failure due to high blood pressure: (2) Non-STEMI (non-ST elevated myocardial infarction): PLAN: Plan 1. Acute myocardial injury probably secondary to hypoxia from exacerbation of COPD: Patient is being admitted in PCU. 2D echo shows EF 70% with no regional wall motion abnormalities therefore does not seem acute MA. Normal RV systolic function, normal left and right atria. Normal mitral valve, mild TR, PASP 30 mmHg. The patient was evaluated by siding coreboard inspector. Advised to continue home medications for chronic HFpEF, Coreg, losartan and spironolactone. Lasix as needed. 2. Acute hypoxic and hypercarbic combined respiratory failure due to acute COPDexacerbation due to multifocal pneumonia from influenza A. Early bacterial secondary infection:-patient is on aerosol treatments and is receiving IV Decadron, monitor pulse ox. Continue PT and OT 09/06/2023: Acute hypoxic respiratory failure due to COPD exacerbation and evolving right lower lobe, right upper lobe and left lower lobe multifocal pneumonia: Patient required 8 L of high flow oxygen in the morning. As per the nursing staff, she was also coughing was wet, tannish colored expectorate yesterday but not able to bring up any phlegm today. Repeat chest x-ray PA and lateral was done and individually reviewed. It shows evolving right lower lobe infiltrate, right upper lobe and left lower lobe infiltrate consistent with multifocal pneumonia. Started on IV Zosyn to cover for gram-positive, gram-negative and anaerobes. Pneumonia workup ordered. Discussed with the patient'kinzaaughter near the bedside. Patient is being managed on scheduled bronchodilator, steroid, Mucinex, incentive spirometry and Pep. BiPAP as needed 09/07: Patient got short of breath yesterday and continued overnight with increased oxygen requirement. ABG showed pH 7.33/pCO2 51/O2 69 seems on 7 L of oxygen. Patient was given Ativan 0.5 mg so that she can tolerate BiPAP. Influenza A, subtype H3 positive. Started on Tamiflu. Low-dose mirtazapine ordered from night. #3 spinal stenosis with right radicular pain and debility- PT and OT, patient remains on gabapentin, IV Decadron, and narcotics as needed for pain, again she is a poor surgical candidate to have any surgery done at this institution due toher comorbidities. Hospitalist colleague Dr. Noble Lynch discussed with the patient's son and advised to follow-up in tertiary care to spine surgeon to evaluate for surgery. 09/06: Patient on IV dexamethasone, decreased to 4 mg every 8 hourly 5. Hypotension: Patient blood pressure in a.m. was 87/48 and Coreg was held. Later on BP improved to 118/85 and had Lasix, Aldactone and Cozaar which broughtdown the blood pressure down again 89/35, 90/32. Discussed with the nursing staff, space out all Lasix and Cozaar. Cozaar dose decreased 25 mg daily and switch to the evening time. 09/06: Blood pressure was also borderline but carvedilol dose decreased to 6.25 mg twice daily and Cozaar dose already decreased. 6. BERNARDO and hyperkalemia probably due to diuretic, spironolactone and potassium supplement: Patient on furosemide, potassium supplement and spironolactone whichis temporarily held. Her baseline creatinine about 1.2 increased to 1.76. IV fluid low-dose 50 mill per hour for 1 L. Repeat labs tomorrow AM. 09/07: Creatinine seems better creatinine 1.5 BUN 90. Serum potassium 6.0. Repeat BMP ordered and pending. Laboratory Results 09/06/23 11:04: WBC 8.2, RBC 2.67 L, Hgb 8.5 L, Hct 27.3 L, MCV 102.2 H, MCH 31.8, MCHC 31.1 L, RDW Std Deviation 62.6 H, RDW Coeff of Ha 16.8 H, Plt Count 147 L, MPV 10.7, Immature Gran % (Auto) 0.600, Neut % (Auto) 88.4 H, Lymph % (Auto) 4.3 L, [place] % (Auto) 6.5, Eos % (Auto) 0.0, Baso % (Auto) 0.2, Absolute Neuts (auto) 7.2, Absolute Lymphs (auto) 0.35 L, Nucleated RBC % 0 Sodium 137, Potassium 5.6 H, Chloride 103, Carbon Dioxide 26.0, Anion Gap 8, BUN 90 H, Creatinine 1.76 H, Estim Creat Clear Calc 20.88, Est GFR (MDRD) Af Amer 35 L, Est GFR (MDRD) Non-Af 29 L, BUN/Creatinine Ratio 51.1 H, Glucose 427 H, Calcium 9.1 09/07/23 04:05: WBC 6.8, RBC 2.45 L, Hgb 7.8 L, Hct 25.1 L, MCV 102.4 H, MCH 31.8, MCHC 31.1 L, RDW Std Deviation 62.7 H, RDW Coeff of Ha 16.7 H, Plt Count 132 L, MPV 10.7, Immature Gran % (Auto) 0.600, Neut % (Auto) 85.1 H, Lymph % (Auto) 6.4 L, [place] % (Auto) 7.8, Eos % (Auto) 0.0, Baso % (Auto) 0.1, Absolute Neuts (auto) 5.8, Absolute Lymphs (auto) 0.43 L, Nucleated RBC % 0.4, Differential Comment SCANNED, Sodium 138, Potassium 6.0 H*, Chloride 107, CarbonDioxide 28.0, Anion Gap 3 L, BUN 90 H, Creatinine 1.50 H, Estim Creat Clear Calc24.50, Est GFR (MDRD) Af Amer 42 L, Est GFR (MDRD) Non-Af 35 L, BUN/Creatinine Ratio 60.0 H, Glucose 178 H, Calcium 8.7 09/07/23 06:03: POC Glucose 158 H Charges/Coding Addendum Addendum: Total time of the visit including total time spent in counseling or coordinationof care, (more than 50% of the total time, spent in obtaining medical information from nurses and other ancillary care providers,explaining to the patient about labs, imaging, diagnosis and management of active complex medical conditions), review of ABG, review of labs and imaging is 45 minutes. Visit Charges Inpatient E&M: 02349 Subs Hosp L3 09/07/23 0936 <Electronically signed by Juan Esteves MD> Cosigner Signature (if applicable): CC: ~ Signed [facility] Work Phone: 1(353) 754-812502-21-[address] [facility] September 07, 2023 6:33am Note Date/Time September 06, 2023 8:55pm [facility] Medical Records Department [address] [place] [address] Progress Note - Hospitalist 09/06/232053 MR#: [id number] Acct: [id number] Name: DICK ARTIS Rep #:[id number] : 1935 87 From: Pema Sal MD PCP: Dr. Mady Dunn MD Status:AD M IN Location: [place] [id number] Hospitalist Note Patient with continued increased oxygen requirements with influenza A. Encouraged strongly BIPAP but has continued to refuse. Will trial airvo/CPAP, ABG also requested. 09/06/232054 <Electronically signed by Pema Sal MD> Cosigner Signature (if applicable): CC: ~ Signed ADDENDUM by Dr. Pema Sal MD on 09/06/23 at 2218 Addendum Patient now amenable to BIPAP which has been placed. Will add low dose ativan asneeded for anxiety with BIPAP per patient request. 09/06/232217<Electronically signed by Pema Sal MD> Cosigner Signature (if applicable): cc: ~* Signed ADDENDUM by Dr. Pema Sal MD on 09/07/23 at 0123 Addendum Also patient with urinary retention on bladder scan. Given patient agitation, attempting to remove device given discomfort will place turner at this time. 09/07/23 0123<Electronically signed by Pema Sal MD> Cosigner Signature (if applicable): cc: ~* Signed ADDENDUM by Dr. Pema Sal MD on 09/07/23 at 0633 Addendum Addendum: AM K 6.0, hyperkalemia protocol initiated with repeat K this AM following. 09/07/23 0633<Electronically signed by Pema Sal MD> Cosigner Signature (if applicable): cc: ~* Signed [facility] Work Phone: 1(837) 732-113902-20-2024 Progress note Author Juan Esteves [facility] September 06, 2023 2:40pm Note Date/Time September 06, 2023 2:18pm [facility] Medical Records Department [address] [place] [address] Progress Note - Hospitalist 09/06/23 1417 MR#: [id number] Acct: [id number] Name: DICK ARTIS Rep #:[id number] : 1935 87 From: Juan Bee PCP: Dr. Mady Dunn MD Status:AD IN Location: [place] [id number] Reason for Visit Reason for Visit: Diagnoses Essential (primary) hypertension (09/03/23) Hypertensive heart disease with heart failure (09/03/23) Non-ST elevation (NSTEMI) myocardial infarction (09/03/23) Occlusion and stenosis of bilateral carotid arteries (09/03/23) Shortness of breath (09/03/23) Other specified abnormal findings of blood chemistry (09/03/23) Objective Data Objective Data Vital Signs: Vital Signs Temp Pulse Resp BP Pulse Ox O2 Del Method O2 Flow Rate 97.4 F L 82 24 H 109/38 L 93 Nasal Cannula 8 09/06/23 14:00 09/06/23 14:00 09/06/23 14:00 09/06/23 14:00 09/06/23 14:00 09/06/23 14:00 09/06/23 14:00 FiO2 50 09/06/23 12:37 Oxygen Flow Rate (L/min) 8 Oxygen Delivery Method Nasal Cannula Weight: 146 lb 4.815 oz Body Mass Index (BMI) 26.7 Intake & Output: Intake and Output for Last 24 Hours 09/04/23 09/05/23 09/06/23 23:59 23:59 23:59 Intake Total 120 / 360 1730 / 1970 480 / 480 Output Total 225 / 475 750 / 1150 600 / 600 Balance -105 / -115 980 / 820 -120 / -120 Lab / Micro Data 09/06/23 11:04 09/06/23 11:04 Labs: Laboratory Results - last 24 hr 09/06/23 11:04: WBC 8.2, RBC 2.67 L, Hgb 8.5 L, Hct 27.3 L, MCV 102.2 H, MCH 31.8, MCHC 31.1 L, RDW Std Deviation 62.6 H, RDW Coeff of Ha 16.8 H, Plt Count 147 L, MPV 10.7, Immature Gran % (Auto) 0.600, Neut % (Auto) 88.4 H, Lymph % (Auto) 4.3 L, [place] % (Auto) 6.5, Eos % (Auto) 0.0, Baso % (Auto) 0.2, Absolute Neuts (auto) 7.2, Absolute Lymphs (auto) 0.35 L, Nucleated RBC % 0, Sodium 137, Potassium 5.6 H, Chloride 103, Carbon Dioxide 26.0, Anion Gap 8, BUN 90 H, Creatinine 1.76 H, Estim Creat Clear Calc 20.88, Est GFR (MDRD) Af Amer 35 L, Est GFR (MDRD) Non-Af 29 L, BUN/Creatinine Ratio 51.1 H, Glucose 427 H, Calcium 9.1 Radiography Diagnostic Testing: Radiology Impression Chest X-Ray 09/06/23 09:30 IMPRESSION: Progressive right lower lobe infiltrate with increased markings in the right upper lobe and left lower pole. Electronically Signed: Ramos Jolley MD at 13:31 EST , Rhythm Strip Rhythm Strip: Sinus Rhythm Rate: 95 Physical Exam Narrative Seen and examined. Patient shortness of breath got worse today requiring 9 L of high flow oxygen. Chest x-ray PA and lateral ordered. Patient was admitted for shortness of breath and lumbar back pain with radiationto her right leg suggestive of sciatica pain. Physical exam General: Alert, Oriented x3, Cooperative, mild short of breath. HEENT: Atraumatic, PERRLA, EOMI, Normocephalic Oral: No Gingival or Mucosal Lesions/ Ulcerations Neck: Supple, No JVD, Negative Carotid Bruits Chest wall/Lungs: Air entry diminished in bilateral lung bases. Bilateral rhonchi and coarse crepitations. Dyspnea at rest. Cardiovascular: Regular rate, Regular Rhythm, Normal S1, Normal S2, No M/G/R Abdomen: Bowel Sounds Present, Soft, Non Tender, Non-Distended : No dysuria. No renal angle tenderness. No suprapubic tenderness. Extremities: Mild bilateral lower leg pitting edema, Capillary Refill Less than 3 Seconds Skin: No rashes, No breakdown Musculoskeletal: No Tenderness to Palpation of Joints or Extremities Neurological: Cranial nerves II-XII grossly intact, DTR 2+/4. No acute focal neurological deficit. Psych/Mental Status: Flat affect. Assessment & Plan Assessment/Plan (1) Heart failure due to high blood pressure: (2) Non-STEMI (non-ST elevated myocardial infarction): PLAN: Plan 1. Acute myocardial injury probably secondary to hypoxia from exacerbation of COPD: Patient is being admitted in PCU. 2D echo shows EF 70% with no regional wall motion abnormalities therefore does not seem acute MA. Normal RV systolic function, normal left and right atria. Normal mitral valve, mild TR, PASP 30 mmHg. The patient was evaluated by siding coreboard inspector. Advised to continue home medications for chronic HFpEF, Coreg, losartan and spironolactone. Lasix as needed. 2. Acute COPD exacerbation:-patient is on aerosol treatments and is receiving IV Decadron, monitor pulse ox. Continue PT and OT 09/06/2023: Acute hypoxic respiratory failure due to COPD exacerbation and evolving right lower lobe, right upper lobe and left lower lobe multifocal pneumonia: Patient required 8 L of high flow oxygen in the morning. As per the nursing staff, she was also coughing was wet cough, tannish colored expectorate yesterday but not able to bring up any phlegm today. Repeat chest x-ray PA and lateral was done and individually reviewed. It shows evolving right lower lobe infiltrate, right upper lobe and left lower lobe infiltrate consistent with multifocal pneumonia. Started on IV Zosyn to cover for gram-positive, gram-negative and anaerobes. Pneumonia workup ordered. Discussed with the patient'sebastienter near the bedside. Patient is being managed on scheduled bronchodilator, steroid, Mucinex, incentive spirometry and Pep. BiPAP as needed #3 spinal stenosis with right radicular pain and debility- PT and OT, patient remains on gabapentin, IV Decadron, and narcotics as needed for pain, again she is a poor surgical candidate to have any surgery done at this institution due toher comorbidities. Hospitalist colleague Dr. Noble Lynch discussed with the patient's son and advised to follow-up in tertiary care to spine surgeon to evaluate for surgery. 2: Patient on IV dexamethasone, decreased to 4 mg every 8 hourly #4 hypoxia secondary to COPD and recent COVID-19 infection-patient is still hypoxic on 4 L of oxygen. 5. Hypotension: Patient blood pressure in a.m. was 87/48 and Coreg was held. Later on BP improved to 118/85 and had Lasix, Aldactone and Cozaar which broughtdown the blood pressure down again 89/35, 90/32. Discussed with the nursing staff, space out all Lasix and Cozaar. Cozaar dose decreased 25 mg daily and switch to the evening time. 09/06: Blood pressure was also borderline but carvedilol dose decreased to 6.25 mg twice daily and Cozaar dose already decreased. 6. BERNARDO and hyperkalemia probably due to diuretic, spironolactone and potassium supplement: Patient on furosemide, potassium supplement and spironolactone whichis temporarily held. Her baseline creatinine about 1.2 increased to 1.76. IV fluid low-dose 50 mill per hour for 1 L. Repeat labs tomorrow AM. Laboratory Results 09/06/23 11:04: WBC 8.2, RBC 2.67 L, Hgb 8.5 L, Hct 27.3 L, MCV 102.2 H, MCH 31.8, MCHC 31.1 L, RDW Std Deviation 62.6 H, RDW Coeff of Ha 16.8 H, Plt Count 147 L, MPV 10.7, Immature Gran % (Auto) 0.600, Neut % (Auto) 88.4 H, Lymph % (Auto) 4.3 L, [place] % (Auto) 6.5, Eos % (Auto) 0.0, Baso % (Auto) 0.2, Absolute Neuts (auto) 7.2, Absolute Lymphs (auto) 0.35 L, Nucleated RBC % 0 Sodium 137, Potassium 5.6 H, Chloride 103, Carbon Dioxide 26.0, Anion Gap 8, BUN 90 H, Creatinine 1.76 H, Estim Creat Clear Calc 20.88, Est GFR (MDRD) Af Amer 35 L, Est GFR (MDRD) Non-Af 29 L, BUN/Creatinine Ratio 51.1 H, Glucose 427 H, Calcium 9.1 Charges/Coding Visit Charges Inpatient E&M: 13466 Subs Hosp L2 09/06/23 1440 <Electronically signed by Juan Esteves MD> Cosigner Signature (if applicable): CC: ~ Signed [facility] Work Phone: 1(604) 834-543702-19-2024 Progress note Author Juan Esteves [facility] September 05, 2023 2:43pm Note Date/Time September 05, 2023 8:53am [facility] Medical Records Department [address] [place] [id number] Progress Note - Hospitalist 09/05/23 0852 MR#: [id number] Acct: [id number] Name: DICK ARTIS Rep #:[id number] : 1935 87 From: Juan Bee PCP: Dr. Mady Dunn MD Status:AD IN Location: [place] [address] Reason for Visit Reason for Visit: Diagnoses Essential (primary) hypertension (09/03/23) Hypertensive heart disease with heart failure (09/03/23) Non-ST elevation (NSTEMI) myocardial infarction (09/03/23) Occlusion and stenosis of bilateral carotid arteries (09/03/23) Shortness of breath (09/03/23) Other specified abnormal findings of blood chemistry (09/03/23) Objective Data Objective Data Vital Signs: Vital Signs Temp Pulse Resp BP Pulse Ox O2 Del Method O2 Flow Rate 97 F L 83 16 87/48 L 94 Nasal Cannula 4 09/05/23 08:14 09/05/23 08:14 09/05/23 08:14 09/05/23 08:14 09/05/23 08:14 09/05/23 08:14 09/05/23 08:14 Oxygen Flow Rate (L/min) 4 Oxygen Delivery Method Nasal Cannula Weight: 146 lb 4.815 oz Body Mass Index (BMI) 26.7 Intake & Output: Intake and Output for Last 24 Hours 09/03/23 09/04/23 09/05/23 23:59 23:59 23:59 Intake Total 620 / 620 120 / 360 790 / 790 Output Total 625 / 625 225 / 475 450 / 450 Balance -5 / -5 -105 / -115 340 / 340 Lab / Micro Data 09/03/23 09:45 09/03/23 09:45 Rhythm Strip Rhythm Strip: Sinus Rhythm Rate: 95 Physical Exam Narrative Seen and examined. Patient admitted for shortness of breath and lumbar back pain with radiation to her right leg suggestive of sciatica pain. Shortness of breath is better but still has dyspnea on exertion. Physical exam General: Alert, Oriented x3, Cooperative, mild short of breath. HEENT: Atraumatic, PERRLA, EOMI, Normocephalic Oral: No Gingival or Mucosal Lesions/ Ulcerations Neck: Supple, No JVD, Negative Carotid Bruits Chest wall/Lungs: Air entry diminished in bilateral lung bases. Bilateral rhonchi. On 4 L of oxygen. Cardiovascular: Regular rate, Regular Rhythm, Normal S1, Normal S2, No M/G/R Abdomen: Bowel Sounds Present, Soft, Non Tender, Non-Distended : No dysuria. No renal angle tenderness. No suprapubic tenderness. Extremities: Mild bilateral lower leg pitting edema, Capillary Refill Less than 3 Seconds Skin: No rashes, No breakdown Musculoskeletal: No Tenderness to Palpation of Joints or Extremities Neurological: Cranial nerves II-XII grossly intact, DTR 2+/4. No acute focal neurological deficit. Psych/Mental Status: Flat affect. Assessment & Plan Assessment/Plan (1) Heart failure due to high blood pressure: (2) Non-STEMI (non-ST elevated myocardial infarction): PLAN: Plan 1. Acute myocardial injury probably secondary to hypoxia from exacerbation of COPD: Patient is being admitted in PCU. 2D echo shows EF 70% with no regional wall motion abnormalities therefore does not seem acute MA. Normal RV systolic function, normal left and right atria. Normal mitral valve, mild TR, PASP 30 mmHg. The patient was evaluated by siding coreboard inspector. Advised to continue home medications for chronic HFpEF, Coreg, losartan and spironolactone. Lasix as needed. #2 acute COPD exacerbation:-patient is on aerosol treatments and is receiving IV Decadron, monitor pulse ox. Continue PT and OT #3 spinal stenosis with right radicular pain and debility- PT and OT, patient remains on gabapentin, IV Decadron, and narcotics as needed for pain, again she is a poor surgical candidate to have any surgery done at this institution due toher comorbidities. Hospitalist colleague Dr. Noble Lynch discussed with the patient's son and advised to follow-up in tertiary care to spine surgeon to evaluate for surgery. #4 hypoxia secondary to COPD and recent COVID-19 infection-patient is still hypoxic on 4 L of oxygen. 5. Hypotension: Patient blood pressure in a.m. was 87/48 and Coreg was held. Later on BP improved to 118/85 and had Lasix, Aldactone and Cozaar which broughtdown the blood pressure down again 89/35, 90/32. Discussed with the nursing staff, space out all Lasix and Cozaar. Cozaar dose decreased 25 mg daily and switch to the evening time. Charges/Coding Visit Charges Inpatient E&M: 91481 Subs Hosp L2 09/05/23 6761 <Electronically signed by Juan Esteves MD> Cosigner Signature (if applicable): CC: ~ Signed [facility] Work Phone: 1(611) 654-289702-19-2024 Miscellaneous Notes* Telephone Encounter - Betty Duckworth RN - 09/05/2023 12:24 PM EST Pt called and is notified of providers results and message. Pt voices understanding. She states sheis still at [facility] and they just did an Echo this morning. Reminded Pt she would need a f/u with provider group 2 weeks of discharge from hospital. Betty Duckworth RN * Telephone Encounter - Rosaura Suárez APRN.CNP - 09/05/2023 7:38 AM EST Can we call and get an update on patient, looks like she might have been admitted to [facility] over the weekend? Her CXR we checked was stable, labs showed some heart failure and anemia. [facility] Progress note Author Noble Reynolds [facility] September 04, 2023 4:43pm Note Date/Time September 04, 2023 4:43pm [facility] Medical Records Department [address] [place] [address] Progress Note - Hospitalist 09/04/23 1640 MR#: [id number] Acct: [id number] Name: DICK ARTIS Rep #:[id number] : 1935 87 From: Noble Reynolds DO PCP: Dr. Mady Dunn MD Status:AD M IN Location: [place] [address] Reason for Visit Reason for Visit: Diagnoses Essential (primary) hypertension (09/03/23) Hypertensive heart disease with heart failure (09/03/23) Non-ST elevation (NSTEMI) myocardial infarction (09/03/23) Occlusion and stenosis of bilateral carotid arteries (09/03/23) Shortness of breath (09/03/23) Other specified abnormal findings of blood chemistry (09/03/23) Subjective Subjective Patient was seen and examined today, I talked briefly with cardiology about her care. Patient is now on 4 L of oxygen via nasal cannula, we are continuing milddiuresis on the patient and IV corticosteroids and breathing treatments. Patient states that she no longer has any pain down her right leg. She seems italia tolerating gabapentin well and does not appear sleepy. I feel the patient will probably need a prescription for p.o. narcotics also when she is dischargedhome. Objective Data Objective Data Vital Signs: Vital Signs Temp Pulse Resp BP Pulse Ox O2 Del Method O2 Flow Rate 97.3 F L 88 16 94/44 L 93 Nasal Cannula 4 09/04/23 15:25 09/04/23 15:25 09/04/23 15:25 09/04/23 15:25 09/04/23 15:25 09/04/23 15:25 09/04/23 15:25 Oxygen Flow Rate (L/min) 4 Oxygen Delivery Method Nasal Cannula Weight: 66.361 kg Body Mass Index (BMI) 26.7 Intake & Output: Intake and Output for Last 24 Hours 09/02/23 09/03/23 09/04/23 23:59 23:59 23:59 Intake Total 620 / 620 120 / 120 Output Total 625 / 625 225 / 225 Balance -5 / -5 -105 / -105 Lab / Micro Data 09/03/23 09:45 09/03/23 09:45 Rhythm Strip Rhythm Strip: Sinus Rhythm Rate: 95 Physical Exam Narrative alert, oriented x3, no apparent distress and average body habitus General Appearance: cooperative, well kempt and well developed Orientation / Consciousness: awake, oriented to person, oriented to place and oriented to time HEENT normocephalic, head/scalp atraumatic, hearing grossly normal bilaterally and moist oral mucous membranes Eyes PERRL, EOMs intact bilaterally and conjunctivae normal Neck supple, no JVD, thyroid normal and no carotid bruits General: trachea midline Resp normal respiratory effort, no retractions and no use of accessory muscles Resp Narrative: Scattered expiratory rhonchi and wheezes are noted Auscultation: rhonchi; Negative for rales Cardio regular rate, regular rhythm, S1 normal heart sound, S2 normal heart sound, no murmurs, no rub and no gallops GI normal to inspection, nondistended, normoactive bowel sounds, soft to palpation,non-tender and non-distended Extremity no clubbing, cyanosis or edema Skin no rashes or lesions noted General Skin Exam: no breakdown Neuro oriented x3, CN's II-XII intact bilaterally, moves all extremities, no focal motor deficits and no sensory deficits noted Sensorium / Orientation: awake and alert Speech: speech normal Psych affect normal Assessment & Plan Assessment/Plan (1) Heart failure due to high blood pressure: (2) Non-STEMI (non-ST elevated myocardial infarction): PLAN: Plan 1. Nzu-DEARU-prkzdige secondary to hypoxia from exacerbation of COPD, cardiology is participating in her care, patient will remain on her present medications #2 exacerbation of COPD-patient is on aerosol treatments and is receiving IV Decadron, monitor pulse ox #3 spinal stenosis with right radicular pain and debility-patient will be seen by PT and OT, patient remains on gabapentin, IV Decadron, and narcotics as needed for pain, again she is a poor surgical candidate to have any surgery doneat this institution due to her comorbidities, I explained this to her and her son who was present at the time my exam today, she will need follow-up at a bigger institution such as the clinic or [facility] for evaluation whether surgery can be done. #4 hypoxia secondary to COPD and recent COVID-19 infection-patient's pulse ox will be monitored Total clinical time spent by myself addressing the patient's medical issues, reviewing all of her data, and collaborating with patient's care team: 35 minutes Charges/Coding Visit Charges Inpatient E&M: 54130 Subs Hosp L2 09/04/23 1643 <Electronically signed by Noble Reynolds DO> Cosigner Signature (if applicable): CC: ~ Signed [facility] Work Phone: 1(249) 892-433902-18-2024 Consult note Author Juvenal Thompson [facility] September 04, 2023 10:57am Note Date/Time September 04, 2023 10:34am [facility] Medical Records Department [address] [place] [address] Consultation - Cardiology 09/04/23 1028 MR#: [id number] Acct: [id number] Name: DICK ARTIS Rep #:[id number] : 1935 87 From: Juvenal Thompson MD PCP: Dr. Mady Dunn MD Status:AD M IN Location: [place] [address] Assessment & Plan Assessment/Plan (1) Hypertension: QUALIFIERS: Hypertension type: primary hypertension Qualified Code(s): I10 - Essential (primary) hypertension PLAN: The patient's blood pressure has been treated in the home environment and she had she was hypotensive after her COVID infection in July. Her medications were adjusted and she is currently tolerating her current home medicines as listed. (2) Shortness of breath: PLAN: The patient has complained of shortness of breath and she was evaluated inthe office August 17, 2023 her O2 sat was 86% and after resting in the seated position it major to 88. The patient was not utilizing her home oxygen therapy when she came to the office. She reports that sometimes she goes around the house without it as well. Currently in the hospital today her O2 sat is 93% on 4 L nasal cannula. She is on 2 L in the home environment and had complained of shortness of breath when she came to the hospital. She does have COPD and has diffuse wheezing. She has been instituted on steroid therapy. (3) Bilateral carotid artery stenosis: PLAN: The patient's right internal carotid measured 50 to 69% stenosis the left was less than 50% on carotid ultrasounds done August 29, 2023. She is on Plavix in the home environment and this should be continued long-term as tolerated. (4) Elevated troponin I level: PLAN: The patient's initial troponin was 1220 the second 1240 the third 1100. Ifeel this probably represents a combination of her LVH which is known to be significant by echo in 07/06/2022, her COPD exacerbation, the presumed hypoxia as well as a hemoglobin of 10. This probably explains this elevation in troponin she has no chest pains and no EKG changes consistent with a significantischemic burden. The patient does have what appears to be heart failure with preserved ejection fraction. She reports that her edema is completely resolved with the alteration in her medications over the last month. I do not feel that invasive evaluation for coronary ischemia is indicated at this point in time. (5) Heart failure due to high blood pressure: PLAN: The patient has a history of left ventricular hypertrophy with an ejectionfraction of 65% on echo June 2022. She has been treated with Coreg 12.5 mg twice daily losartan 50 mg daily spironolactone 25 mg daily and Lasix 40 mg in the home environment. Until this COPD exacerbation this had controlled her blood pressure and had lower extremity edema. She also has a history of chronicrenal insufficiency stage IIIb. Will repeat her echocardiogram in the limb as a limited echo to reevaluate her LV function. PLAN: Plan 1. Continue home medical regiment for heart failure with preserved ejection fraction with the Coreg losartan and spironolactone. She should also receive Lasix as needed. And be reinstituted on her home dose when discharged. 2. 2D echocardiogram for LV function reevaluation this will be a limited echo. 3. I do not feel that further evaluation from a cardiovascular standpoint is indicated but should her situation change please reconsult us. HPI Consult Data Date of Consult: 09/04/23 HPI Narrative Reason for Consultation: Positive Troponins HPI Narrative: DICK ARTIS, is a 87 F who presents with complaints of shortness of breath and severe back pain related to her spinal stenosis. He was unable to get out of the bed yesterday and was brought in the emergency room for evaluation and treatment. She has COPD and had COVID admitted to the hospital in July 2023. She has been on home oxygen therapy since her since COVID. She was evaluated in my office actually August 17, 2023 after we had decreased her losartan due to low blood pressures in the home environment. In the office her initial O2 sat when she first came in was 86 on room air after being seated for a while it major to 88. She did not have her oxygen with her. The patient had troponins evaluated in the emergency department on admission. The series went 1220 1240 1161. The patient denies any chest discomfort and hashad no shortness of breath since early after her admission. Her O2 sats were documented in the 90% range in the emergency department. Patient is complainingof shortness of breath and has diffuse wheezing documented. The chest x-ray reveals some persistent atelectasis from her previous chest x-rays. Her EKG done September 03 at 1011 hrs. was sinus tachycardia at 110 bpm a right bundle branch block and baseline artifact but no definitive ischemia. This was really unchanged from August 18, 2023. The patient does not have a known history of coronary artery disease she does have a history of atherosclerotic vascular disease with bilateral carotid stenosis documented on a recent carotid ultrasound August 29, 2023. The right internal carotid was 50 to 69% the leftwas less than 50%. The patient reports that since admission she has had no chest symptoms whatsoever. She has a history of an echocardiogram in June 2022 which showed concentric left ventricular hypertrophy and ejection fraction of 65%. She had trivial valvular heart disease and a right ventricular systolic pressureestimated at 47 with a history of COPD. The patient had been discharged from the hospital in July and her low blood pressure was treated by dropping her losartan to 50 mg daily and discontinuing her hydrochlorothiazide. When the patient was seen in office August 17 her blood pressure was well-controlled in the 110-120 systolic range. She continuesto deny any syncope or near syncopal spells denies any dizziness. She reports her lower extremity she had experienced earlier in July is completely resolved. She is on a combination of Lasix and spironolactone in the home environment as well as Coreg and losartan for her heart failure with preserved ejection fraction. The patient's BNP on admission was 210. A prior reading on August 18, 2023 [id number]. [facility] Medical History (Updated 09/04/23 @ 10:[address] Juvenal Thompson MD) Bilateral carotid artery stenosis Chronic kidney disease Claudication Diverticulosis Dyslipidemia Essential hypertension History of COPD History of TIA (transient ischemic attack) Leg edema Limb weakness Muscle spasm of left shoulder area Neck and back pain PAD (peripheral artery disease) Renal cyst RLS (restless legs syndrome) Shortness of breath Shoulder pain TIA (transient ischemic attack) Vertigo Home Medications atorvastatin 40 mg tablet 40 mg PO QHS cholesterol 02/22/16 [History Last Taken 09/02/23] clopidogrel 75 mg tablet 75 mg PO DAILY BLOOD THINNER 02/22/16 [History Last Taken 09/02/23] multivitamin with folic acid 400 mcg tablet 1 tab PO DAILY supplement 02/22/16 [History Last Taken 09/02/23] spironolactone 25 mg tablet 25 mg PO DAILY FLUID RETENTION 02/22/16 [History Last Taken 06/19/23] albuterol sulfate 90 mcg/actuation aerosol inhaler 2 puff inhalation BID PRN shortness of breath or wheezing 03/16/18 [History Last Taken 09/02/23] cholecalciferol (vitamin D3) 25 mcg (1,000 unit) tablet 2,500 unit PO DAILY SUPPLEMENT 10/09/18 [History Last Taken 09/02/23] furosemide 40 mg tablet 40 mg PO DAILY FLUID RETENTION #90 tabs 01/27/22 [Rx Last Taken 09/02/23] albuterol sulfate 2.5 mg/3 mL (0.083 %) solution for nebulization 2.5 mg inhalation Q4H PRN shortness of breath or wheezing 05/28/22 [History Last Taken 09/02/23] ipratropium 0.5 mg-albuterol 3 mg (2.5 mg base)/3 mL nebulization soln 3 ml inhalation Q6H PRN shortness of breath 05/28/22 [History Last Taken 09/02/23] budesonide 0.5 mg/2 mL suspension for nebulization 0.25 mg inhalation TID PRN shortness of breath 12/06/22 [History Last Taken 09/02/23] carvedilol 12.5 mg tablet 12.5 mg PO BID CHOLESTEROL #180 tabs 04/27/23 [Rx Last Taken 09/02/23] losartan 50 mg tablet 50 mg PO DAILY BLOOD PRESSURE #90 tabs 08/01/23 [Rx Last Taken 09/02/23] duloxetine 30 mg capsule,delayed release 30 mg PO BID pain 08/17/23 [History Last Taken 09/02/23] pramipexole 1.5 mg tablet 1.5 mg PO QHS restless leg syndrome 08/18/23 [History Last Taken 09/02/23] dexamethasone 6 mg tablet 6 mg PO DAILY #7 tabs 08/20/23 [Rx Last Taken Unknown] diclofenac sodium 1 % topical gel topical 09/03/23 [History Last Taken Unknown] prednisone 10 mg tablet 10 mg PO DAILY 09/03/23 [History Last Taken Unknown] Allergy/AdvReac Type Severity Reaction Status Date / Time lisinopril Allergy edema Verified 09/03/23 09:41 aspirin AdvReac Upset Verified 09/03/23 09:41 Stomach Family History Mother Heart disease Surgical History History of basal cell carcinoma excision History of carotid angioplasty History of kidney stones History of thyroid surgery History of total hysterectomy Social History household members: none housing: house Smoking Status: Former smoker how long ago did patient quit smokin years ago alcohol intake: current alcohol intake frequency: holidays/special occasions only details: rare substance use type: does not use caffeine: Yes Type: coffee Number of servings: 1 ROS Constitutional Constitutional: Reports as per HPI Eyes Eyes: Reports systems reviewed and no addt'l complaints, except as documented ENT HEENT: Reports systems reviewed and no addt'l complaints, except as documented Cardiovascular Cardiovascular: Reports as per HPI Respiratory/Chest Respiratory/Chest: Reports as per HPI Gastrointestinal Gastrointestinal: Reports systems reviewed and no addt'l complaints, except as documented Genitourinary Genitourinary: Reports systems reviewed and no addt'l complaints, except as documented Musculoskeletal Musculoskeletal: Reports as per HPI Integumentary Integumentary: Reports systems reviewed and no addt'l complaints, except as documented Neurologic Neurologic: Reports systems reviewed and no addt'l complaints, except as documented Psychiatric Psychiatric: Reports systems reviewed and no addt'l complaints, except as documented Endocrine Endocrinology: Reports systems reviewed and no addt'l complaints, except as documented Hematologic/Lymphatic Hematologic/Lymphatic: Reports systems reviewed and no addt'l complaints, exceptas documented Allergic/Immunologic Allergic/Immunologic: Reports systems reviewed and no addt'l complaints, except as documented Physical Exam Const oriented x3 HEENT normocephalic Eyes EOMs intact bilaterally Neck no JVD Carotids: bruit Positive for right Chest inspection of chest normal Resp normal respiratory effort Auscultation: crackles bilateral base and localized and wheezes expiratory wheezes and throughout Cardio regular rhythm, S1 normal heart sound, S2 normal heart sound, no murmurs, no ruband no gallops Cardio Narrative: Distant heart tones and diffuse expiratory wheezing. Rate: tachycardic GI soft to palpation and non-tender Extremity no pedal edema Skin no rashes or lesions noted Neuro Neuro Narrative: Alert and oriented x 3 Psych mental status grossly normal Risk Stratification Risk Stratification Applicable: Yes Age >/= 65: Yes >/= 3 CAD Risk Factors (HTN, HLD, DM, family hx of CAD, or current smoker): No Aspirin Use in the Past 7 Days: No Severe Angina (>/= episodes in 24 hours): No EKG ST Changes >/= 0.5mm: No Positive Cardiac Marker: Yes EDWARDO Risk Stratification Score: 2 EDWARDO % Risk: 8% Risk Charges/Coding Visit Charges Inpatient E&M: 10089 Init Hosp L3 Objective Data Vital Signs: Vital Signs Temp Pulse Resp BP Pulse Ox O2 Del Method O2 Flow Rate 97.0 F L 84 18 95/39 L 93 Nasal Cannula 4 09/04/23 10:09/04/23 10:09/04/23 10:09/04/23 10:09/04/23 10:09/04/23 10:09/04/23 10:19 Oxygen Flow Rate (L/min) 4 Oxygen Delivery Method Nasal Cannula Weight: 146 lb 4.815 oz Body Mass Index (BMI) 26.7 Intake & Output: Intake and Output for Last 24 Hours 09/02/23 09/03/23 09/04/23 23:59 23:59 23:59 Intake Total 620 / 620 120 / 120 Output Total 625 / 625 100 / 100 Balance -5 / -5 Lab / Micro Data Attestation: I reviewed the patient's lab results. 09/03/23 09:45 09/03/23 09:45 Labs: Laboratory Results - last 24 hr 09/03/23 09:45: Troponin I High Sens 1220 H*, B-Natriuretic Peptide 210.1 H 09/03/23 13:58: Troponin I High Sens 1240 H* 09/03/23 15:42: Troponin I High Sens 1161 H* Rhythm Strip Rhythm Strip: Sinus Rhythm Rate: 95 Cardiology Labs/Tests 09/03/23 09:45: B-Natriuretic Peptide 210.1 H Rhythm: EKG: ECHO: Stress Test: Cardiac Cath: PCI: CT Surgery: Holter monitor: EPS: PPM: CXR: Chest CT Scan: Radiography Diagnostic Testing: Radiology Impression Chest X-Ray 09/03/23 10:25 IMPRESSION: Improving right middle lobe and lingular pneumonia/atelectasis. Electronically Signed: Min Senior MD at 10:50 EST Reading Location ID and State: [id number] [facility] Tel , Service support , EKG Initial EKG: Attestation: I personally reviewed and interpreted this EKG as follows: Interpretation: Sinus tachycardia 110 bpm right bundle branch block baseline artifact no ischemia. Unchanged from 08/18/2023 09/04/23 1057 <Electronically signed by Juvenal Thompson MD> Cosigner Signature (if applicable): CC: Dr. Mady Dunn MD; Dr. Juvenal Thompson MD~ Signed [facility] Work Phone: 1(899) 215-137002-17-2024 History and physical note Author Noble Reynolds [facility] September 03, 2023 1:54pm Note Date/Time September 03, 2023 1:33pm [facility] Medical Records Department [address] [place] [address] H&P Exam - Hospitalist 09/03/23 1329 MR#: [id number] Acct: [id number] Name: DICK ARTIS Rep #:[id number] : 1935 87 From: Noble Reynolds DO PCP: Dr. Mady Dunn MD Status:AD M IN Location: [id number] HPI - General General Date of Admission: 09/03/23 Date of Service: 09/03/23 Chief Complaint: Shortness of breath, right leg pain HPI Narrative DICK ARTIS, is a 87 F who presents to the emergency room at [facility] with complaints of back pain and right leg pain that caused her to be unable to get up out of bed today, she also complains of shortness of breath over the last 2 weeks since she has had COVID. Patient was hospitalized here for COVID-19 and was discharged on 08/20/2023, patient was set up with home O2 at 2 L, she says that despite this she feels short of breath at home. Patient doeshave a history of COPD. 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 Labs obtained in the emergency room showed a normal white blood cell count, hemoglobin was 10.2, creatinine was 1.23 and BUN was 54. Glucose was 184. Patient's troponin was elevated at 1220 and her beta natruretic peptide was 210. EKG showed normal sinus rhythm with a right bundle branch block. Patient denied any chest pain. Patient will be admitted to PCU, enzymes will becycled, patient will be placed on IV Decadron for her back discomfort, gabapentin, and as needed narcotics. Patient will be given aerosol treatments and pulse ox will be monitored. I have decided to place patient on IV Lasix. Jeff not believe the patient has pneumonia-patient had a chest x-ray during her recent admission while she had COVID, this chest x-ray showed bilateral infiltrates at this time. [facility] Medical History Bilateral carotid artery stenosis Chronic kidney disease Claudication Diverticulosis Dyslipidemia Essential hypertension History of COPD History of TIA (transient ischemic attack) Leg edema Limb weakness Muscle spasm of left shoulder area Neck and back pain PAD (peripheral artery disease) Renal cyst RLS (restless legs syndrome) Shortness of breath Shoulder pain TIA (transient ischemic attack) Vertigo Home Medications atorvastatin 40 mg tablet 40 mg PO QHS cholesterol 02/22/16 [History Last Taken 09/02/23] clopidogrel 75 mg tablet 75 mg PO DAILY BLOOD THINNER 02/22/16 [History Last Taken 09/02/23] multivitamin with folic acid 400 mcg tablet 1 tab PO DAILY supplement 02/22/16 [History Last Taken 09/02/23] spironolactone 25 mg tablet 25 mg PO DAILY FLUID RETENTION 02/22/16 [History Last Taken 06/19/23] albuterol sulfate 90 mcg/actuation aerosol inhaler 2 puff inhalation BID PRN shortness of breath or wheezing 03/16/18 [History Last Taken 09/02/23] cholecalciferol (vitamin D3) 25 mcg (1,000 unit) tablet 2,500 unit PO DAILY SUPPLEMENT 10/09/18 [History Last Taken 09/02/23] furosemide 40 mg tablet 40 mg PO DAILY FLUID RETENTION #90 tabs 01/27/22 [Rx Last Taken 09/02/23] albuterol sulfate 2.5 mg/3 mL (0.083 %) solution for nebulization 2.5 mg inhalation Q4H PRN shortness of breath or wheezing 05/28/22 [History Last Taken 09/02/23] ipratropium 0.5 mg-albuterol 3 mg (2.5 mg base)/3 mL nebulization soln 3 ml inhalation Q6H PRN shortness of breath 05/28/22 [History Last Taken 09/02/23] budesonide 0.5 mg/2 mL suspension for nebulization 0.25 mg inhalation TID PRN shortness of breath 12/06/22 [History Last Taken 09/02/23] carvedilol 12.5 mg tablet 12.5 mg PO BID CHOLESTEROL #180 tabs 04/27/23 [Rx Last Taken 09/02/23] losartan 50 mg tablet 50 mg PO DAILY BLOOD PRESSURE #90 tabs 08/01/23 [Rx Last Taken 09/02/23] duloxetine 30 mg capsule,delayed release 30 mg PO BID pain 08/17/23 [History Last Taken 09/02/23] pramipexole 1.5 mg tablet 1.5 mg PO QHS restless leg syndrome 08/18/23 [History Last Taken 09/02/23] dexamethasone 6 mg tablet 6 mg PO DAILY #7 tabs 08/20/23 [Rx Last Taken Unknown] diclofenac sodium 1 % topical gel topical 09/03/23 [History Last Taken Unknown] prednisone 10 mg tablet 10 mg PO DAILY 09/03/23 [History Last Taken Unknown] Allergy/AdvReac Type Severity Reaction Status Date / Time lisinopril Allergy edema Verified 09/03/23 09:41 aspirin AdvReac Upset Verified 09/03/23 09:41 Stomach Family History Mother Heart disease Surgical History History of basal cell carcinoma excision History of carotid angioplasty History of kidney stones History of thyroid surgery History of total hysterectomy Social History household members: none housing: house Smoking Status: Former smoker how long ago did patient quit smokin years ago alcohol intake: current alcohol intake frequency: holidays/special occasions only details: rare substance use type: does not use caffeine: Yes Type: coffee Number of servings: 1 ROS Constitutional Constitutional: Reports fatigue and weakness; Denies anorexia, change in weight,chills, fever(s) or night sweats Eyes Eyes: Denies blurry vision, change in eye color, change in vision, discharge from eye(s) or eye pain Cardiovascular Cardiovascular: Reports chest pain and dyspnea on exertion; Denies claudication,edema or palpitations Respiratory/Chest Respiratory/Chest: Reports cough, dyspnea, shortness of breath at rest and shortness of breath with exertion; Denies hemoptysis Gastrointestinal Gastrointestinal: Denies abdominal pain, constipation, diarrhea, hematemesis, hematochezia, melena, nausea or vomiting Genitourinary Genitourinary: Denies dysuria, hematuria, urinary frequency, urinary hesitancy, urinary incontinence or urinary urgency Musculoskeletal Musculoskeletal: Reports back pain and other Details: Right leg radicular pain ; Denies joint pain, joint stiffness, joint swelling, myalgias or neck pain Neurologic Neurologic: Reports other Details: Right leg radicular pain ; Denies abnormal gait, abnormal speech, dizziness, focal weakness, headache(s), loss of vision, numbness, other visual disturbances, paresthesias, syncope or tingling Psychiatric Psychiatric: Denies anxiety, cognitive impairment, depression, irritability, mood swings or suicidal ideation Endocrine Endocrinology: Denies change in body appearance, cold intolerance, excessive sweating, heat intolerance, polydipsia or polyuria Hematologic/Lymphatic Hematologic/Lymphatic: Denies none, anemia, easy bleeding, easy bruising or lymphadenopathy Allergic/Immunologic Allergic/Immunologic: Denies rhinitis, urticaria, eczemia or asthma Vital Signs Vital Signs Vital Signs: 09/03/23 09:37 09/03/23 10:07 09/03/23 11:05 Temperature 97.6 F L Temperature Source Temporal Pulse Rate 110 H 93 Respiratory Rate 26 H 30 H Blood Pressure 146/100 H 113/55 L Blood Pressure Mean 115 74 Pulse Ox 92 96 Oxygen Delivery Method Nasal Cannula Room Air Nasal Cannula Oxygen Flow Rate (L/min) 2 09/03/23 11:43 09/03/23 12:37 Temperature 97.2 F L Temperature Source Pulse Rate 97 99 Respiratory Rate 28 H 24 H Blood Pressure 103/51 L 115/66 Blood Pressure Mean 68 82 Pulse Ox 95 92 Oxygen Delivery Method Nasal Cannula Oxygen Flow Rate (L/min) 2 Weight Weight: 68.4 kg Body Mass Index (BMI) 27.6 Physical Exam Const alert, oriented x3, no apparent distress and average body habitus General Appearance: cooperative, well kempt and well developed Orientation / Consciousness: awake, oriented to person, oriented to place and oriented to time HEENT normocephalic, head/scalp atraumatic, hearing grossly normal bilaterally and moist oral mucous membranes Eyes PERRL, EOMs intact bilaterally and conjunctivae normal Neck supple, no JVD, thyroid normal and no carotid bruits General: trachea midline Resp normal respiratory effort, no retractions and no use of accessory muscles Resp Narrative: Scattered expiratory rhonchi are noted Auscultation: rhonchi; Negative for rales or wheezes Cardio regular rate, regular rhythm, S1 normal heart sound, S2 normal heart sound, no murmurs, no rub and no gallops GI normal to inspection, nondistended, normoactive bowel sounds, soft to palpation,non-tender and non-distended Extremity no clubbing, cyanosis or edema Skin no rashes or lesions noted General Skin Exam: no breakdown Neuro oriented x3, CN's II-XII intact bilaterally, moves all extremities, no focal motor deficits and no sensory deficits noted Sensorium / Orientation: awake and alert Speech: speech normal Psych affect normal Results Lab / Micro Data 09/03/23 09:45 09/03/23 09:45 Labs: Laboratory Results - last 24 hr 09/03/23 09:45: WBC 8.4, RBC 3.29 L, Hgb 10.2 L, Hct 32.3 L, MCV 98.2, MCH 31.0,MCHC 31.6 L, RDW Std Deviation 59.6 H, RDW Coeff of Ha 16.4 H, Plt Count 183, MPV 10.5, Immature Gran % (Auto) 1.300 H, Neut % (Auto) 78.5 H, Lymph % (Auto) 11.8 L, [place] % (Auto) 6.5, Eos % (Auto) 1.7, Baso % (Auto) 0.2, Absolute Neuts (auto) 6.6, Absolute Lymphs (auto) 0.99, Nucleated RBC % 0, Sodium 140, Potassium 4.8, Chloride 107, Carbon Dioxide 31.0, Anion Gap 2 L, BUN 54 H, Creatinine 1.23 H, Estim Creat Clear Calc 30.31, Est GFR (MDRD) Af Amer 53 L, Est GFR (MDRD) Non-Af 44 L, BUN/Creatinine Ratio 43.9 H, Glucose 184 H, Calcium 9.3, Troponin I High Sens 1220 H*, B- Natriuretic Peptide 210.1 H Imaging Radiology Impression Chest X-Ray 09/03/23 10:25 IMPRESSION: Improving right middle lobe and lingular pneumonia/atelectasis. Electronically Signed: Min Senior MD at 10:50 EST , Assessment & Plan Assessment/Plan (1) Non-STEMI (non-ST elevated myocardial infarction): PLAN: Plan 1. [id number] secondary to hypoxia from exacerbation of COPD, patient will be admitted to PCU, enzymes will be cycled, she will have an echocardiogramperformed and see cardiology in consultation, patient will remain on aspirin andPlavix, patient is already on a statin and beta-blockers #2 exacerbation of COPD-patient was placed on IV Decadron, aerosol treatments, pulse ox will be monitored #3 spinal stenosis with right radicular pain and debility-patient will be seen by PT and OT, I will start her on gabapentin and place her on IV Decadron, she will receive IV narcotics, patient is also on Cymbalta. Patient would be a poorsurgical candidate at this hospital due to her COPD history and advanced age, I talked with Dr. Jama and he confirmed this, I also talked with pain management(Dr. Low Raymundo) and he stated that the patient would need a multilevel fusionmost probably. #4 hypoxia secondary to COPD and recent COVID-19 infection-patient's pulse ox will be monitored Total clinical time spent by myself addressing the patient's medical issues, reviewing all of her data, and collaborating with patient's care team: 75 minutes Charges/Coding Visit Charges Inpatient E&M: 87660 Init Hosp L3 09/03/23 1354 <Electronically signed by Noble Reynolds DO> Cosigner Signature (if applicable): CC: Dr. Mady Dunn MD; Dr. Noble Reynolds DO~ Signed [facility] Work Phone: [phone]) 838-184002-17-2024 Discharge summary Author Matthew Schuster [facility] September 03, 2023 12:52pm Note Date/Time September 03, 2023 11:29am [facility] Medical Records Department [address] [place] [id number] Emergency Department Summary 09/03/23 MR#: [id number] Acct: [id number] Name: DICK ARTSI Rep #:[id number] : 1935 87 From: Matthew Schuster DO PCP: Dr. Mady Dunn MD Status:RE G ER Location: ED HPI History of Present Illness Chief Complaint: Back Narrative Narrative: 87-year-old female presenting with back pain which is not a new issue. She states she has had back pain for a very long time. She is seeing pain management for this. She has had 2 injections. She states he is going to be referred to a spinal surgeon in the future. Patient also states that she believes she is having a COPD exacerbation. Patient recently admitted for COVID-19 and was discharged home. She is now wearing 2 L at home which she did not wear before she came into the hospital. Patient was on steroids but is no longer. She saw her PCP yesterday and had some labs drawn and x-ray. She was going to start on prednisone send but came to the emergency room due to worsening back pain. This is on the lower back on the right side. States radiates into the right leg. Patient has no fevers or chills at home. She states that she did not have any symptoms when she had COVID-19 and only was hypoxic. Denies chest pain. She is not nauseous or vomiting. [facility] Medical History Bilateral carotid artery stenosis Chronic kidney disease Claudication Diverticulosis Dyslipidemia Essential hypertension History of COPD History of TIA (transient ischemic attack) Leg edema Limb weakness Muscle spasm of left shoulder area Neck and back pain PAD (peripheral artery disease) Renal cyst RLS (restless legs syndrome) Shortness of breath Shoulder pain TIA (transient ischemic attack) Vertigo Home Medications atorvastatin 40 mg tablet 40 mg PO QHS cholesterol 02/22/16 [History Last Taken 09/02/23] clopidogrel 75 mg tablet 75 mg PO DAILY BLOOD THINNER 02/22/16 [History Last Taken 09/02/23] multivitamin with folic acid 400 mcg tablet 1 tab PO DAILY supplement 02/22/16 [History Last Taken 09/02/23] spironolactone 25 mg tablet 25 mg PO DAILY FLUID RETENTION 02/22/16 [History Last Taken 06/19/23] albuterol sulfate 90 mcg/actuation aerosol inhaler 2 puff inhalation BID PRN shortness of breath or wheezing 03/16/18 [History Last Taken 09/02/23] cholecalciferol (vitamin D3) 25 mcg (1,000 unit) tablet 2,500 unit PO DAILY SUPPLEMENT 10/09/18 [History Last Taken 09/02/23] furosemide 40 mg tablet 40 mg PO DAILY FLUID RETENTION #90 tabs 01/27/22 [Rx Last Taken 09/02/23] albuterol sulfate 2.5 mg/3 mL (0.083 %) solution for nebulization 2.5 mg inhalation Q4H PRN shortness of breath or wheezing 05/28/22 [History Last Taken 09/02/23] ipratropium 0.5 mg-albuterol 3 mg (2.5 mg base)/3 mL nebulization soln 3 ml inhalation Q6H PRN shortness of breath 05/28/22 [History Last Taken 09/02/23] budesonide 0.5 mg/2 mL suspension for nebulization 0.25 mg inhalation TID PRN shortness of breath 12/06/22 [History Last Taken 09/02/23] carvedilol 12.5 mg tablet 12.5 mg PO BID CHOLESTEROL #180 tabs 04/27/23 [Rx Last Taken 09/02/23] losartan 50 mg tablet 50 mg PO DAILY BLOOD PRESSURE #90 tabs 08/01/23 [Rx Last Taken 09/02/23] duloxetine 30 mg capsule,delayed release 30 mg PO BID pain 08/17/23 [History Last Taken 09/02/23] pramipexole 1.5 mg tablet 1.5 mg PO QHS restless leg syndrome 08/18/23 [History Last Taken 09/02/23] dexamethasone 6 mg tablet 6 mg PO DAILY #7 tabs 08/20/23 [Rx Last Taken Unknown] diclofenac sodium 1 % topical gel topical 09/03/23 [History Last Taken Unknown] prednisone 10 mg tablet 10 mg PO DAILY 09/03/23 [History Last Taken Unknown] Allergy/AdvReac Type Severity Reaction Status Date / Time lisinopril Allergy edema Verified 09/03/23 09:41 aspirin AdvReac Upset Verified 09/03/23 09:41 Stomach Family History Mother Heart disease Surgical History History of basal cell carcinoma excision History of carotid angioplasty History of kidney stones History of thyroid surgery History of total hysterectomy Social History household members: none housing: house Smoking Status: Former smoker how long ago did patient quit smokin years ago alcohol intake: current alcohol intake frequency: holidays/special occasions only details: rare substance use type: does not use caffeine: Yes Type: coffee Number of servings: 1 ROS ROS ED Constitutional Constitutional ED: Denies chills, fever(s) or sweats Eyes Eyes: Denies blurry vision or change in vision ENT ENT ED: Denies ear pain or sore throat Cardiovascular Cardiovascular: Denies chest pain, palpitations or racing heartbeat Respiratory/Chest Respiratory/Chest: Reports dyspnea and dyspnea on exertion; Denies cough or sputum Gastrointestinal Gastrointestinal: Denies abdominal pain, constipation, diarrhea, nausea or vomiting Genitourinary Genitourinary ED: Denies dysuria, hematuria or urinary frequency Musculoskeletal Musculoskeletal: Reports back pain; Denies arthralgias, myalgias or neck pain Integumentary Denies abscess, Abrasions or rash Neurologic Neurologic: Denies headache(s), paresthesias or weakness Psychiatric Psychiatric: Denies anxiety, depression, suicidal ideation or suicidal thoughts Endocrine Endocrinology: Denies polydipsia or polyuria EXAM Physical Exam Const Vital Signs: 09/03/23 09:37 09/03/23 10:07 09/03/23 11:05 Temperature 97.6 F L Temperature Source Temporal Pulse Rate 110 H 93 Respiratory Rate 26 H 30 H Blood Pressure 146/100 H 113/55 L Blood Pressure Mean 115 74 Pulse Ox 92 96 Oxygen Delivery Method Nasal Cannula Room Air Nasal Cannula Oxygen Flow Rate (L/min) 2 09/03/23 11:43 09/03/23 12:37 Temperature 97.2 F L Temperature Source Pulse Rate 97 99 Respiratory Rate 28 H 24 H Blood Pressure 103/51 L 115/66 Blood Pressure Mean 68 82 Pulse Ox 95 92 Oxygen Delivery Method Nasal Cannula Oxygen Flow Rate (L/min) 2 Positive well nourished General Appearance ED: NAD; Negative for pallor HEENT Reports dry mucous membranes Mouth ED: Yes dry mucous membranes Mouth: dry mucous membranes Eyes PERRL and EOMs intact bilaterally Chest Wall inspection of chest normal Resp Resp Narrative: Tachypneic. Scattered wheezes. Cardio regular rate and regular rhythm GI normal to inspection, nondistended, normoactive bowel sounds Neuro oriented x3 and CN's II-XII intact bilaterally Sensorium / Orientation: alert Psych mental status grossly normal Skin no rashes or lesions noted General Skin Exam: Negative for jaundice or pallor MDM MDM MDM Narrative Medical decision making narrative: Patient presenting with concern for COPD exacerbation. She recently had COVID. She is not on any steroids currently. She is given breathing treatments and Solu-Medrol here in the ED. Chest x-ray will be obtained to rule out pneumonia. Differential also includes CHF so we will obtain a BMP. CBC to assess white blood cell count, hemoglobin, platelets. BMP to assess renal function, electrolytes, glucose. BNP to assess for CHF. Patient was given fentanyl 25 mcg to help with pain. She was given Zofran for nausea. Patient currently on her 2 L at 96%. CBC unremarkable. BMP shows creatinine of 1.23. BUN 54. Electrolytes unremarkable. Glucose 184 without anion gap. BNP 210. Chest x-ray on my interpretation does not show anything new or acute. Radiology interprets this as improving infiltrate. High-sensitivity troponin came back [id number]. Discussed with hospitalist regarding this who did speak with cardiology (Dr. Thompson) who did not believe he needed a heparin drip. She does not have any chest pain and she denies having had any chest pain. Patient was given 324 mg of aspirin. She was given a [place] for her pain in her lower back. She is admitted to the hospitalist stable condition. Impression: 1. NSTEMI 2. COPD exacerbation 3. Back pain 4. Debility Lab Data Attestation: I reviewed the patient's lab results. Labs: Laboratory Results - last 24 hr 09/03/23 09:45 WBC 8.4 RBC 3.29 L Hgb 10.2 L Hct 32.3 L MCV 98.2 MCH 31.0 MCHC 31.6 L RDW Std Deviation 59.6 H RDW Coeff of Ha 16.4 H Plt Count 183 MPV 10.5 Immature Gran % (Auto) 1.300 H Neut % (Auto) 78.5 H Lymph % (Auto) 11.8 L [place] % (Auto) 6.5 Eos % (Auto) 1.7 Baso % (Auto) 0.2 Absolute Neuts (auto) 6.6 Absolute Lymphs (auto) 0.99 Nucleated RBC % 0 Sodium 140 Potassium 4.8 Chloride 107 Carbon Dioxide 31.0 Anion Gap 2 L BUN 54 H Creatinine 1.23 H Estim Creat Clear Calc 30.31 Est GFR (MDRD) Af Amer 53 L Est GFR (MDRD) Non-Af 44 L BUN/Creatinine Ratio 43.9 H Glucose 184 H Calcium 9.3 Troponin I High Sens 1220 H* B-Natriuretic Peptide 210.1 H Radiography Diagnostic Testing: Clinical Impression(s) from Imaging Studies Chest X-Ray 09/03/23 10:25 IMPRESSION: Improving right middle lobe and lingular pneumonia/atelectasis. Electronically Signed: Min Senior MD at 10:50 EST , Discharge Plan Triage Chief Complaint: Back ED Provider: Matthew Schuster Dx/Rx/DC Orders Prescriptions: No Action cholecalciferol (vitamin D3) 1,000 unit tablet 2,500 unit PO DAILY albuterol sulfate 2.5 mg /3 mL (0.083 %) solution for nebulization 2.5 mg inhalation Q4H PRN (Reason: shortness of breath or wheezing) ipratropium-albuterol 0.5 mg-3 mg(2.5 mg base)/3 mL solution for nebulization 3 ml inhalation Q6H PRN (Reason: shortness of breath) budesonide 0.5 mg/2 mL suspension for nebulization 0.25 mg inhalation TID PRN (Reason: shortness of breath) duloxetine 30 mg capsule,delayed release(DR/EC) 30 mg PO BID atorvastatin 40 MG tablet 40 mg PO QHS clopidogrel 75 MG tablet 75 mg PO DAILY spironolactone 25 MG tablet 25 mg PO DAILY multivitamin with folic acid 1 TABLET tablet 1 tab PO DAILY albuterol sulfate 90 mcg/actuation HFA aerosol inhaler 2 puff INHALATION BID PRN (Reason: shortness of breath or wheezing) pramipexole 1.5 mg tablet 1.5 mg PO QHS dexamethasone 6 mg tablet 6 mg PO DAILY Qty: 7 0RF Hold Instructions: duplicate Patient Comments: states was to start this am prednisone 10 mg tablet 10 mg PO DAILY Patient Comments: pt was supposed to start this morning, was not able to diclofenac sodium 1 % gel TOPICAL Patient Comments: pt using, but unaware of directions furosemide 40 mg tablet 40 mg PO DAILY Qty: 90 3RF Hold Instructions: Hold for 2 days. carvedilol 12.5 mg tablet 12.5 mg PO BID Qty: 180 4RF Rx Instructions: must administer with a meal/food losartan 50 mg tablet 50 mg PO DAILY Qty: 90 3RF Primary Care Provider: Mady Dunn Referrals: Mady Dunn MD [Primary Care Provider] - What to do if you have Problems For any increased pain, shortness of breath, bleeding, nausea or vomiting, chestpain, or any unexpected problems, contact your Primary Care Provider. Call [facility] ([phone]) or report to the closest Emergency Room. Call 911 if necessary. 09/03/23 1252 <Electronically signed by Matthew Schuster DO> Cosigner Signature (if applicable): CC: Dr. Mady Dunn MD ~ Signed [facility] Work Phone: 1(166) 142-685602-16-2024 Miscellaneous Notes* Telephone Encounter - Angélica Franco LPN - 09/02/2023 1:20 PM EST Current appointment OK per EB. Agnélica Franco LPN * Telephone Encounter - Rosaura Suárez APRN.CORINNA - 09/02/2023 8:57 AM EST Good morning, Emerson was in to seem this morning for TCM. She was in [facility] 08/18- 08/20 for COVID, hypoxia, COPD. She is now on o2 and has been needing it continuous (originally she was hopeful to wean it but with today's visit I think this will be more detention). We are updating some labs, checking a cxr. She overall just presented as tired, increased weakness and fatigue. I did get her to agree to [facility]. Her next follow up with pulm is 10/12 but I let her know she likely needs seen sooner with now requiring oxygen and change in her clinical status. IF her appointment needs moved up can you please reach out to get her scheduled? Thanks!! [facility] History of Present illness Narrative* Bella Villar, RT(R) - 09/02/2023 9:10 AM EST Radiology Service Progress Note PATIENT NAME: Dick Artis DATE OF SERVICE: September 02, 2023 TIME: 9:20 AM PATIENT IDENTITY VERIFICATION COMPLETED USING TWO (2) IDENTIFIERS: Name and Date of confirmedby patient verbally. FALL SCREENING: Has the patient had 2 falls in the last year or 1 fall with injury or currently using an Ambulatory Assistive Device (Walker, Cane, Wheelchair, Crutches, etc.)? Yes, Patient High Riskfor Falls What interventions were put in place to prevent falls during this visit? Offered Assistance with Transfers/Clothing, Instructed Patient to Remain Seated (Not on Exam Table) Until Exam, and Increased Observations by Caregivers PATIENT GENDER DATA: Female. status: : No status: NO. PATIENT RELEVANT IMPLANT DATA REVIEWED: Not Applicable PATIENT PRESENTS WITH AN IMPLANTABLE OR ATTACHED ELECTROPHYSIOLOGY SCIENTIST: No RADIOLOGY DEPARTMENT: General X-ray: Exam(s) Completed: Chest X-Ray PERIPHERAL IV DATA: Not applicable SIGNED BY: RT Gi(R) September 02, 2023 9:20 AM [facility] Instructions* Patient Instructions* Rosaura Suárez APRN.YARD CRANE OPERATOR - 09/02/2023 8:19 AM EST I will reach out to pulmonology today to see how soon they want you seen in their office with the changes you have had. Get blood work and chest xray today. We will send the referral for home health to [facility] Home Health Increase night time oxygen to 3 l/m, okay to still use 2 l/m during the day but can increase if spo2% (o2 leves) check is at 90 or below then increase to 3 l/m if needed. If blood pressure is at or below 105/70 then do not take the losartan that day. We will lower the dose to 1/2 pill of your current 50 mg pill. I sent in your albuterol, and I am also sending in prednisone. We will check an ultrasound of the right leg to make sure no blood clot issues with your increased pain. IF not eating much at your meal, you can do a protein shake (Something like Boost, Ensure) I would recommend at least once a day for right now but can do up to 3 a day. [facility] History of Present illness Narrative* Rosaura Suárez APRN.CNP - 09/02/2023 7:49 AM EST Images from the original note were not included. Transitional Care Management Progress Note The patients TCM visit was performed within the 14 days of discharge. TCM Eligibility Documentation The following information was gathered during the initial Patient Outreach Encounter. No flowsheet data found. If no data exists please enter it manually. If data exists please delete date of discharge and dateof initial contact seen below. Patient's Date of discharge: 08/20/2023 Date of initial coordinator contact after discharge: Patient contact with the office on 08/20/2023 Discharge diagnosis: COVID, hypoxia Medication review completed Yes , with visit today Rosaura Suárez APRN.CORINNA Provider Documentation: In follow-up of hospitalization, Dick Artis is a 87 year old female with the chief complaint of hospital follow up. I have reviewed the patient s last hospital course including diagnostic testing performed during this hospitalization, their discharge medications, and my assessment and plan with the patient and anyfamily members present at today s visit. HPI: Emerson is an 87 year old female established patient of Mady Dunn MD. Here today for a hospital follow up, accompanied by her daughter. She was recently admitted to [facility] on 08/18/2023 and discharged 08/20/2023. She has a medical history significant for COPD, TIA, HLD, PAD and CKD. Follows routinely with cardiology, pulmonology, pain mgmt. Hospital records are available for review and were reviewed with this visit. She had gone to ER for worsening shortness of breath. Diagnosis of COVID-19, hypoxia. Treated with dexamethasone, remdesivir. Discharged with o2 at 2 l/m for activity. Since stopping her dexamethasone after x10 days she has had some wheezing, lately more shortness of breath. On o2 at 2 l/m and using this constant now. Doing nebulizer treatments. Not coughing. No chest pain or chest tightness. She is having a lot of weakness and fatigue. No HHC currently but has [facility] to help with vital sign monitoring. Appetite is not the greatest. Not sleeping really well. Up a lot. Chronic pain issues but lately has increased pain in her right leg, pain to behind the knee cap, no increased leg swelling or increased warmth or issues with redness. No prior blood clots. Pain feels like a tooth ache. Known PAD history. No recent issues with constipation. PAST MEDICAL HISTORY: Reviewed and updated PAST MEDICAL HISTORY Diagnosis Date Basal cell carcinoma Carotid stenosis CEA left CKD (chronic kidney disease) stage 3, GFR 30-59 ml/min ([facility]) 07/30/2018 COPD (chronic obstructive pulmonary disease) ([facility]) Diverticulosis of colon (without mention of hemorrhage) Diverticulosis Hypertension Rolly Smith MD Osteoporosis, unspecified Personal history of colonic polyps Colon polyps Restless legs syndrome (RLS) TIA (transient ischemic attack) 2008 Plavix ALLERGIES: Reviewed and updated ALLERGIES Allergen Reactions Amlodipine Swelling Lower leg edema. Aspirin Unknown Lisinopril Cough Requip [Ropinirole] Other: See Comments Very anxious MEDICATIONS: Reviewed and updated Current Outpatient Medications Medication Sig budesonide (PULMICORT) 0.5 mg/2 mL nebulizer solution USE 1 VIAL IN NEBULIZER EVERY 12 HOURS OVER 5-15 MINUTES atorvastatin (LIPITOR) 40 mg tablet take 1 tablet daily baclofen 5 mg tablet clopidogrel (PLAVIX) 75 mg tablet take 1 tablet daily predniSONE (DELTASONE) 20 mg tablet 1 tablet three times a day for 3 days, then 2 times a day for 3days, the one daily for 3 days. furosemide (LASIX) 40 mg tablet Take 1 [...] (2.5 ML) VIA NEBULIZER FOUR TIMES A DAYOVER 5 TO 15 MINUTES FOR WHEEZING OR SHORTNESS OF BREATH albuterol HFA (VENTOLIN HFA) 90 mcg/actuation inhaler Inhale 2 Puffs as instructed every 4 hours asneeded for wheezing/shortness of breath. May take 2 [...] Take 1 tablet by mouth once daily. multivitamin with folic acid (THERA, ONE DAILY) 400 mcg Take by mouth. Cholecalciferol, Vitamin D3, 1,000 unit cap Take 1 capsule by mouth once daily. Melatonin 5 mg cap Take by mouth. (Patient not taking: Reported on 09/02/2023) ipratropium (ATROVENT) 0.02 % nebulizer solution Use [...] No Family History Review of Systems Constitutional: Positive for activity change, appetite change and fatigue. Negative for chills, diaphoresis and fever. Respiratory: Positive for shortness of breath and wheezing. Negative for apnea, cough, choking, chest tightness and stridor. Cardiovascular: Negative. Neurological: Positive for weakness. All other systems reviewed and negative, other than HPI. Physical Exam Vitals and nursing note reviewed. Constitutional: General: She is awake. She is not in acute distress. Appearance: She is not toxic-appearing or diaphoretic. Interventions: Nasal cannula in place. Comments: Presents in wheel chair, appears tired HENT: Head: Normocephalic. Cardiovascular: Rate and Rhythm: Normal rate and regular rhythm. Pulses: Normal pulses. Heart sounds: Murmur heard. Systolic murmur is present with a grade of 2/6. Pulmonary: Breath sounds: Examination of the right-middle field reveals wheezing. Examination of the left-middle field reveals wheezing. Examination of the right- lower field reveals decreased breath sounds and wheezing. Examination of the left-lower field reveals decreased breath sounds and wheezing. Decreased breath sounds and wheezing present. No rhonchi or rales. Comments: Faint wheezing, some increased work of breathing but not overly labored, o2 in place Musculoskeletal: Right lower leg: No deformity, lacerations, tenderness or bony tenderness. No edema. Left lower leg: No edema. Legs: Comments: Pain to this area but no palpable cords, knots, masses, no increased warmth, redness or swelling Skin: General: Skin is warm and dry. Capillary Refill: Capillary refill takes less than 2 seconds. Neurological: General: No focal deficit present. Mental Status: She is alert and oriented to person, place, and time. Mental status is at baseline. Motor: Weakness (general) present. Psychiatric: Behavior: Behavior normal. Behavior is cooperative. Thought Content: Thought content normal. Judgment: Judgment normal. BP 110/62 Pulse 72 Resp 24 Wt 145 lb 8 oz (66.0kg) SpO2 99% 1. I have reviewed the patient record including associated test results during the last hospitalization Yes 2. I have reviewed Lab test Yes 3. I have reviewed Radiology test Yes 4. I reviewed assessment/plan with the patient/family member Yes ASSESSMENT/PLAN: 1. COVID - ICD9: 079.89, ICD10: U07.1 (primary diagnosis) Recent COVID, out of quarantine window. Check cxr today, refer to [facility] for help at home due to increased weakness and fatigue. We will also contact her pulmonary office. - XR CHEST 2V FRONTAL/LAT - NON-[facility] 2. SOB (shortness of breath) - ICD9: 786.05, ICD10: R06.02 Check labs, cxr, suspect COPD exacerbation secondary to recent COVID infection. Prednisone taper. - XR CHEST 2V FRONTAL/LAT - NON-[facility] - PREDNISONE 10 MG TABLET 3. Chronic hypoxic respiratory failure, on home oxygen therapy (HCC) - ICD9: 518.83, 799.02, V46.2,ICD10: J96.11, Z99.81 Discussed increase to 3 l/m at night, monitor spo2. - XR CHEST 2V FRONTAL/LAT - [facility] 4. Chronic obstructive pulmonary disease with acute exacerbation (HCC) - ICD9: 491.21, ICD10: J44.1 - ALBUTEROL SULFATE HFA 90 MCG/ACTUATION AEROSOL INHALER - XR CHEST 2V FRONTAL/LAT - [facility] 5. Exercise-induced asthma - ICD9: 493.81, ICD10: J45.990 - ALBUTEROL SULFATE HFA 90 MCG/ACTUATION AEROSOL INHALER - XR CHEST 2V FRONTAL/LAT 6. Pain of right lower extremity - ICD9: 729.5, ICD10: M79.604 Low suspicion for a clot but given very limited symptoms but her recent COVID infection and decreased mobility since does increase the possibility so we will check an ultrasound to be sure we can confidently rule out DVT. - US LEG VEIN DVT [facility] 7. General weakness - ICD9: 780.79, ICD10: R53.1 - XR CHEST 2V FRONTAL/LAT - CBC + DIFF - IRON + TIBC - FERRITIN BLD - VITAMIN B12 BLOOD - NT PRO BNP - [facility] 8. Fatigue, unspecified type - ICD9: 780.79, ICD10: R53.83 - XR CHEST 2V FRONTAL/LAT - CBC + DIFF - IRON + TIBC - FERRITIN BLD - VITAMIN B12 BLOOD - MAGNESIUM BLD - NT PRO BNP - [facility] 9. Anemia, unspecified type - ICD9: 285.9, ICD10: D64.9 Anemia with recent hospitalization. - CBC + DIFF - IRON + TIBC - FERRITIN BLD - VITAMIN B12 BLOOD - MAGNESIUM BLD 10. Primary hypertension - ICD9: 401.9, ICD10: I10 - Controlled, actually has been more on the hypotensive side. - Decrease losartan - Recommend home blood pressure monitoring, to bring results to next visit - Encouraged sodium restriction, DASH or Mediterranean diet - Recommend regular aerobic exercise 11. Encounter for therapeutic drug monitoring - ICD9: V58.83, ICD10: Z51.81 - CBC + DIFF - COMP METABOLIC PANEL Rosaura Suárez APRN.[employer] OPERATOR TCM with high complexity given her current status, chronic conditions and follow up needed. [facility] Discharge summary Author Herrera Bauman [facility] August 20, 2023 11:42am Note Date/Time August 20, 2023 1 1:38am [facility] Medical Records Department [address] [place] [address] Discharge Summary 08/20/23 1137 MR#: [id number] Acct: [id number] Name: DICK ARTIS Rep #:[id number] : 1935 87 From: Herrera Bauman DO PCP: Dr. Mady Dunn MD Status:AD M IN Location: [place] [id number]- 1 Providers Date of Admission: 08/18/23 Primary Care Physician: Dr. Mady Dunn MD Reason For Visit: HYPOXIA 2/2 COVID 19 Diagnosis Discharge Diagnosis (1) COVID-19: Status: Acute Code(s): U07.1 - COVID-19 Plan Acute COVID 19 * Onset likely the . Quarantine through 08/26. * Received dexamethasone, remdesivir in the hospital. Will discharge to complete 10-day course of dexamethasone. Hypoxia * 2/2 COVID 19 and COPD. * wean oxygen as able. * check home oxygen evaluation. * Patient did fine at rest but will require 2 L of oxygen with activity. Patient is ambulatory in home and in the community and requires home oxygen with portability. Chronic conditions: * Hx TIA/PAD/bilateral carotid stenosis-Cont plavix-Continue statin * Chronic pain-Follows with pain management. 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-Avoid nephrotoxic agents-Daily BMP DVT ppx: Lovenox subcu Medications at Discharge Home Medications atorvastatin 40 mg tablet 40 mg PO QHS cholesterol 02/22/16 clopidogrel 75 mg tablet 75 mg PO DAILY BLOOD THINNER 02/22/16 multivitamin with folic acid 400 mcg tablet 1 tab PO DAILY supplement 02/22/16 spironolactone 25 mg tablet 25 mg PO DAILY FLUID RETENTION 02/22/16 albuterol sulfate 90 mcg/actuation aerosol inhaler 2 puff inhalation BID PRN shortness of breath or wheezing 03/16/18 cholecalciferol (vitamin D3) 25 mcg (1,000 unit) tablet 2,500 unit PO DAILY SUPPLEMENT 10/09/18 furosemide 40 mg tablet 40 mg PO DAILY FLUID RETENTION #90 tabs 01/27/22 albuterol sulfate 2.5 mg/3 mL (0.083 %) solution for nebulization 2.5 mg inhalation Q4H PRN shortness of breath or wheezing 05/28/22 ipratropium 0.5 mg-albuterol 3 mg (2.5 mg base)/3 mL nebulization soln 3 ml inhalation Q6H PRN shortness of breath 05/28/22 budesonide 0.5 mg/2 mL suspension for nebulization 0.25 mg inhalation TID PRN shortness of breath 12/06/22 carvedilol 12.5 mg tablet 12.5 mg PO BID CHOLESTEROL #180 tabs 04/27/23 losartan 50 mg tablet 50 mg PO DAILY BLOOD PRESSURE #90 tabs 08/01/23 duloxetine 30 mg capsule,delayed release 30 mg PO BID pain 08/17/23 hydrocodone-acetaminophen 5-325mg 5mg-325mg 1 tab PO TID PRN pain 08/17/23 pramipexole 1.5 mg tablet 1.5 mg PO QHS restless leg syndrome 08/18/23 dexamethasone 6 mg tablet 6 mg PO DAILY #7 tabs 08/20/23 Hospital Course Operations None Procedures None Summary of Care Provided Minutes Spent on Discharge: 32 Hospital Course: Patient presents with shortness of breath and hypoxia. Patient was found to have COVID-19. Patient started on dexamethasone and remdesivir. Patient is improved but still does require oxygen with activity. Patient will be discharged today to complete a course of dexamethasone. Weight / BMI Weight Weight: 66.1 kg Body Mass Index (BMI) 26.6 ABG / Lab / Microbiology Data 08/19/23 05:50 08/19/23 05:50 Microbiology: Microbiology 08/19/23 00:40 Urine, Clean Catch Legionella Antigen - Final 08/19/23 00:40 Urine, Clean Catch Streptococcus pneumoniae Antigen (M - Final 08/18/23 17:31 Mucosa - Nasopharyngeal Respiratory Panel (PCR) - Final 08/18/23 14:10 Mucosa - Nose SARS-CoV-2, Influenza & RSV (PCR) - Final SARS-CoV-2 (COVID 19 PCR) D/C Instructions Discharge Diet: No restrictions Meaningful Use Info Meaningful Use Diagnoses (Choose all that apply): None applicable Discharge Plan Admission Admit Date/Time: 08/18/23 15:54 Primary Reason for Your Visit: COVID 19. Attending Provider: Herrera Bauman Primary Care Provider: Mady Dunn Consulting Providers: Yenny Abdul Instructions Additional Instructions / Restrictions: You have COVID-19. To protect others, recommend quarantining at home through the ninth. If you do need to go, please wear a mask and advised others to aroundyou to wear a mask as well. Discharge Orders/Prescriptions Prescriptions: New dexamethasone 6 mg tablet 6 mg PO DAILY Qty: 7 0RF Continued cholecalciferol (vitamin D3) 1,000 unit tablet 2,500 unit PO DAILY albuterol sulfate 2.5 mg /3 mL (0.083 %) solution for nebulization 2.5 mg inhalation Q4H PRN (Reason: shortness of breath or wheezing) ipratropium-albuterol 0.5 mg-3 mg(2.5 mg base)/3 mL solution for nebulization 3 ml inhalation Q6H PRN (Reason: shortness of breath) budesonide 0.5 mg/2 mL suspension for nebulization 0.25 mg inhalation TID PRN (Reason: shortness of breath) duloxetine 30 mg capsule,delayed release(DR/EC) 30 mg PO BID Patient Comments: pt states she is stopping med today hydrocodone-acetaminophen 5-325 mg tablet 1 tab PO TID PRN (Reason: pain) Patient Comments: pt states she is stopping med today atorvastatin 40 MG tablet 40 mg PO QHS clopidogrel 75 MG tablet 75 mg PO DAILY spironolactone 25 MG tablet 25 mg PO DAILY multivitamin with folic acid 1 TABLET tablet 1 tab PO DAILY albuterol sulfate 90 mcg/actuation HFA aerosol inhaler 2 puff INHALATION BID PRN (Reason: shortness of breath or wheezing) pramipexole 1.5 mg tablet 1.5 mg PO QHS furosemide 40 mg tablet 40 mg PO DAILY Qty: 90 3RF Hold Instructions: Hold for 2 days. carvedilol 12.5 mg tablet 12.5 mg PO BID Qty: 180 4RF Rx Instructions: must administer with a meal/food losartan 50 mg tablet 50 mg PO DAILY Qty: 90 3RF Referrals / Follow Up: Mady Dunn MD [Primary Care Provider] - Within 2 Weeks Disposition Disposition (needs filled in before D/C Order can be placed): Home, Self Care Charges/Coding Visit Charges Inpatient E&M: 61567 Disch Hosp >30min 08/20/23 1142 <Electronically signed by Herrera Bauman DO> Cosigner Signature (if applicable): CC: Dr. Herrera Bauman DO; Dr. Mady Dunn MD~ Signed [facility] Work Phone: 1(362) 134-728602-03-2024 Progress note Author Herrera [facility] August 20, 2023 11:37am Note Date/Time August 20, 2023 8 :32am [facility] Medical Records Department [address] [place] [address] Progress Note - Hospitalist 08/20/23829 MR#: [id number] Acct: [id number] Name: DICK ARTIS Rep #:[id number] : 1935 87 From: Herrera Bauman DO PCP: Dr. Mady Dunn MD Status:AD M IN Location: [place] [id number]- Subjective Subjective Breathing better, though, still needs oxygen with activity. Objective Data Objective Data Vital Signs: Vital Signs Temp Pulse Resp BP Pulse Ox O2 Del Method O2 Flow Rate 36.1 C L 63 16 133/74 H 95 Nasal Cannula 3 08/20/23 03:52 08/20/23 07:34 08/20/23 07:34 08/20/23 03:52 08/20/23 07:34 08/20/23 07:34 08/20/23 07:34 Oxygen Flow Rate (L/min) [ 2 AMBULATING with Oxygen #1] Oxygen Flow Rate (L/min) [ 0 AMBULATING on Room Air] Oxygen Flow Rate (L/min) [At 0 REST on Room Air] Oxygen Flow Rate (L/min) 3 Oxygen Delivery Method Nasal Cannula Weight: 66.1 kg Body Mass Index (BMI) 26.6 Intake & Output: Intake and Output for Last 24 Hours 08/18/23 08/19/23 08/20/23 23:59 23:59 23:59 Intake Total 370 / 570 450 / 450 Balance 370 / 570 450 / 450 Lab / Micro Data 08/19/23 05:50 08/19/23 05:50 Micro: Microbiology 08/19/23 00:40 Urine, Clean Catch Legionella Antigen - Final 08/19/23 00:40 Urine, Clean Catch Streptococcus pneumoniae Antigen (M - Final 08/18/23 17:31 Mucosa - Nasopharyngeal Respiratory Panel (PCR) - Final 08/18/23 14:10 Mucosa - Nose SARS-CoV-2, Influenza & RSV (PCR) - Final SARS-CoV-2 (COVID 19 PCR) Physical Exam Const alert and no apparent distress HEENT head/scalp atraumatic and moist oral mucous membranes Resp normal respiratory effort, no retractions, no use of accessory muscles and clearto auscultation bilaterally Cardio regular rate, regular rhythm, S1 normal heart sound and S2 normal heart sound GI normal to inspection, nondistended, normoactive bowel sounds, soft to palpation and non-tender Assessment & Plan Assessment/Plan (1) COVID-19: PLAN: Plan Acute COVID 19 * Onset likely the . Quarantine through 08/26. * Received dexamethasone, remdesivir in the hospital. Will discharge to complete 10-day course of dexamethasone. Hypoxia * 2/2 COVID 19 and COPD. * wean oxygen as able. * check home oxygen evaluation. * Patient did fine at rest but will require 2 L of oxygen with activity. Patient is ambulatory in home and in the community and requires home oxygen with portability. Chronic conditions: * Hx TIA/PAD/bilateral carotid stenosis-Cont plavix-Continue statin * Chronic pain-Follows with pain management. 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 08/20/23 1137 <Electronically signed by Herrera Bauman DO> Cosigner Signature (if applicable): CC: ~ Signed [facility] Work Phone: 1(314) 459-113602-02-2024 Progress note Author Herrera Bauman [facility] August 19, 2023 1:17pm Note Date/Time August 19, 2023 8 :52am [facility] Medical Records Department [address] [place] [address] Progress Note - Hospitalist 08/19/23 0848 MR#: [id number] Acct: [id number] Name: DICK ARTIS Rep #:[id number] : 1935 87 From: Herrera Bauman DO PCP: Dr. Mady Dunn MD Status:AD IN Location: [place] [address] Subjective Subjective Still with shortness of breath. Objective Data Objective Data Vital Signs: Vital Signs Temp Pulse Resp BP Pulse Ox O2 Del Method O2 Flow Rate 37.1 C 89 18 124/67 H 91 Nasal Cannula 3 08/19/23 03:00 08/19/23 07:31 08/19/23 07:31 08/19/23 03:00 08/19/23 07:31 08/19/23 07:31 08/19/23 07:31 Oxygen Flow Rate (L/min) 3 Oxygen Delivery Method Nasal Cannula Weight: 66.1 kg Body Mass Index (BMI) 26.6 Intake & Output: Intake and Output for Last 24 Hours 08/17/23 08/18/23 08/19/23 23:59 23:59 23:59 Intake Total 370 / 570 200 / 200 Balance 370 / 570 200 / 200 Lab / Micro Data 08/19/23 05:50 08/19/23 05:50 Labs: Laboratory Results - last 24 hr 08/18/23 14:00: WBC 6.6, RBC 3.27 L, Hgb 10.2 L, Hct 33.2 L, MCV 101.5 H, MCH 31.2, MCHC 30.7 L, RDW Std Deviation 58.0 H, RDW Coeff of Ha 15.6 H, Plt Count 236, MPV 10.0, Immature Gran % (Auto) 3.200 H, Neut % (Auto) 76.5 H, Lymph % (Auto) 11.9 L, [place] % (Auto) 6.0, Eos % (Auto) 1.8, Baso % (Auto) 0.6, Absolute Neuts (auto) 5.0, Absolute Lymphs (auto) 0.78 L, Nucleated RBC % 0.3, Sodium 145, Potassium 3.5, Chloride 109 H, Carbon Dioxide 31.0, Anion Gap 5, BUN 43 H, Creatinine 1.56 H, Est GFR (MDRD) Af Amer 41 L, Est GFR (MDRD) Non-Af 34 L, BUN/Creatinine Ratio 27.6 H, Glucose 155 H, Calcium 9.5, Troponin I High Sens 45, B-Natriuretic Peptide 149.2 H 08/18/23 19:22: PT 14.6, INR 1.1, Fibrinogen 651 H, D-Dimer Quant (PE/DVT) < 0.27 L, Lactic Acid 1.6, Lactate Dehydrogenase 267 H, Total Creatine Kinase 18 L, C- React Prot Ext Range 85.90 H, Procalcitonin 0.20 H 08/19/23 05:50: WBC 4.8, RBC 2.96 L, Hgb 9.2 L, Hct 29.4 L, MCV 99.3 H, MCH 31.1, MCHC 31.3 L, RDW Std Deviation 54.7 H, RDW Coeff of Ha 15.2 H, Plt Count 216, MPV 9.9, Immature Gran % (Auto) 4.400 H, Neut % (Auto) 75.9 H, Lymph % (Auto) 14.9 L, [place] % (Auto) 4.6, Eos % (Auto) 0.0, Baso % (Auto) 0.2, Absolute Neuts (auto) 3.7, Absolute Lymphs (auto) 0.72 L, Nucleated RBC % 0, Sodium 139, Potassium 3.7, Chloride 108 H, Carbon Dioxide 27.0, Anion Gap 4 L, BUN 47 H, Creatinine 1.26 H, Estim Creat Clear Calc 29.12, Est GFR (MDRD) Af Amer 52 L, Est GFR (MDRD) Non-Af 43 L, BUN/Creatinine Ratio 37.3 H, Glucose 173 H, Calcium 8.9, Magnesium 1.7, Iron 95, TIBC 180 L, Iron Saturation 52.8, Ferritin 640 H, Total Bilirubin 0.40, AST 21, ALT 23, Alkaline Phosphatase 61, Total Protein 6.2L, Albumin 2.2 L, Globulin 4.0, Albumin/Globulin Ratio 0.6 L, Vitamin B12 722, Folate 32.00, TSH 0.23 L Micro: Microbiology 08/19/23 00:40 Urine, Clean Catch Legionella Antigen - Final 08/19/23 00:40 Urine, Clean Catch Streptococcus pneumoniae Antigen (M - Final 08/18/23 17:31 Mucosa - Nasopharyngeal Respiratory Panel (PCR) - Final 08/18/23 14:10 Mucosa - Nose SARS-CoV-2, Influenza & RSV (PCR) - Final SARS-CoV-2 (COVID 19 PCR) Radiography Diagnostic Testing: Radiology Impression Chest X-Ray 08/18/23 15:20 IMPRESSION: Infiltrates in the lingular segment of the left upper lobe as well as the right middle lobe. Radiographic follow-up recommended. Hyperinflation. Electronically Signed: Ramos Jolley MD at 15:32 EST , Physical Exam Const alert and no apparent distress Resp normal respiratory effort, no retractions, no use of accessory muscles and clearto auscultation bilaterally Cardio regular rate, regular rhythm, S1 normal heart sound and S2 normal heart sound GI normal to inspection, nondistended, normoactive bowel sounds, soft to palpation and non-tender Neuro Sensorium / Orientation: awake and alert Assessment & Plan Assessment/Plan (1) COVID-19: PLAN: Plan Acute COVID 19 * Onset likely the . Quarantine through 08/26. * Dexamethasone, remdesivir Hypoxia * 2/2 COVID 19 and COPD. * wean oxygen as able. * check home oxygen evaluation. Chronic conditions: * Hx TIA/PAD/bilateral carotid stenosis-Cont plavix-Continue statin * Chronic pain-Follows with pain management. 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-Avoid nephrotoxic agents-Daily BMP DVT ppx: Lovenox subcu Charges/Coding Visit Charges Inpatient E&M: 25135 Subs Hosp L2 08/19/23 1317 <Electronically signed by Herrera Bauman DO> Cosigner Signature (if applicable): CC: ~ Signed [facility] Work Phone: 1(804) 890-816902-01-2024 History and physical note Author Yenny Abdul [facility] August 18, 2023 4:01pm Note Date/Time August 18, 2023 3 :58pm [facility] Medical Records Department [address] [place] [address] H&P Exam - Hospitalist 08/18/23 1552 MR#: [id number] Acct: [id number] Name: DICK ARTIS Rep #:[id number] : 1935 87 From: Yenny Abdul MD PCP: Dr. Mady Dunn MD Status:RE G ER Location: ED HPI - General General Date of Admission: 08/18/23 Date of Service: 08/18/23 Chief Complaint: Cough, CP, low O2 sat HPI Narrative DICK ARTIS, is a 87-year-old female with history of COPD, history of TIA on Plavix, hyperlipidemia, PAD, chronic kidney disease who presents to the emergency department with complaints of worsening shortness of breath over the last several days. Today she was at pain management and her oxygen saturation was found to be 85%, she does endorse that she has been more short of breath andhas been coughing, shortness of breath worse with exertion. While sitting in room patient was 87% was placed on 2 L of O2 with improvement in O2 sats. In the ED she was found to be COVID-positive. Given her hypoxia and shortness of breath hospitalist contacted for admission. Patient seen at bedside with familymember present, she reports that over the past 3 days she has specifically had increased shortness of breath and cough and oxygen has been dropping to the 80s. Denies fevers or chills, no swelling, ROS otherwise negative. [facility] Medical History Bilateral carotid artery stenosis Claudication Diverticulosis Dyslipidemia Essential hypertension Limb weakness Neck and back pain PAD (peripheral artery disease) Renal cyst RLS (restless legs syndrome) Shoulder pain TIA (transient ischemic attack) Home Medications atorvastatin 40 mg tablet 40 mg PO QHS cholesterol 02/22/16 [History Last Taken 06/18/23] clopidogrel 75 mg tablet 75 mg PO DAILY BLOOD THINNER 02/22/16 [History Last Taken 06/19/23] multivitamin with folic acid 400 mcg tablet 1 tab PO DAILY supplement 02/22/16 [History Last Taken 08/18/23] spironolactone 25 mg tablet 25 mg PO DAILY FLUID RETENTION 02/22/16 [History Last Taken 06/19/23] albuterol sulfate 90 mcg/actuation aerosol inhaler 2 puff inhalation BID PRN shortness of breath or wheezing 03/16/18 [History Last Taken 08/17/23] cholecalciferol (vitamin D3) 25 mcg (1,000 unit) tablet 2,500 unit PO DAILY SUPPLEMENT 10/09/18 [History Last Taken 06/19/23] furosemide 40 mg tablet 40 mg PO DAILY FLUID RETENTION #90 tabs 01/27/22 [Rx Last Taken 08/18/23] albuterol sulfate 2.5 mg/3 mL (0.083 %) solution for nebulization 2.5 mg inhalation Q4H PRN shortness of breath or wheezing 05/28/22 [History Last Taken 08/18/23] ipratropium 0.5 mg-albuterol 3 mg (2.5 mg base)/3 mL nebulization soln 3 ml inhalation Q6H PRN shortness of breath 05/28/22 [History Last Taken 08/18/23] budesonide 0.5 mg/2 mL suspension for nebulization 0.25 mg inhalation TID PRN shortness of breath 12/06/22 [History Last Taken 08/18/23] carvedilol 12.5 mg tablet 12.5 mg PO BID CHOLESTEROL #180 tabs 04/27/23 [Rx Last Taken 06/19/23] losartan 50 mg tablet 50 mg PO DAILY BLOOD PRESSURE #90 tabs 08/01/23 [Rx Last Taken 08/18/23] duloxetine 30 mg capsule,delayed release 30 mg PO BID pain 08/17/23 [History Last Taken 08/18/23] hydrocodone-acetaminophen 5-325mg 5mg-325mg 1 tab PO TID PRN pain 08/17/23 [History Last Taken 08/18/23] pramipexole 1.5 mg tablet 1.5 mg PO QHS restless leg syndrome 08/18/23 [History Last Taken 08/17/23] Allergy/AdvReac Type Severity Reaction Status Date / Time lisinopril Allergy edema Verified 08/18/23 13:12 aspirin AdvReac Upset Verified 08/18/23 13:12 Stomach Family History Mother Heart disease Surgical History History of basal cell carcinoma excision History of carotid angioplasty History of kidney stones History of thyroid surgery History of total hysterectomy Social History household members: none Smoking Status: Former smoker how long ago did patient quit smokin years ago alcohol intake: current alcohol intake frequency: holidays/special occasions only details: rare substance use type: does not use caffeine: Yes Type: coffee Number of servings: 1 ROS ROS Narrative General: Denies fever/chills HENT: Denies headache, denies stuffy nose, denies sore throat EYES: Denies changes in vision Resp: Increased cough and shortness of breath Cardiac: Denies chest pain GI: Denies abdominal pain, denies changes in bowel, denies nausea/vomiting : Denies changes in urination Extremity: Denies swelling MSK: Denies weakness Neuro: Denies any numbness/tingling Heme: Denies any bleeding or bruising Skin: Denies rashes Psychiatric: No complaints voiced Vital Signs Vital Signs Vital Signs: 08/18/23 13:12 08/18/23 14:02 08/18/23 14:03 Temperature 97.5 F L Temperature Source Temporal Pulse Rate 99 Respiratory Rate 20 H Respiratory Effort Normal Non-Labored Respiratory Depth Normal Respiratory Pattern Normal Blood Pressure 137/59 H Blood Pressure Mean 85 Pulse Ox 90 93 Oxygen Delivery Method Room Air Nasal Cannula Room Air Oxygen Flow Rate (L/min) 2.5 08/18/23 14:16 Temperature Temperature Source Pulse Rate 101 H Respiratory Rate 16 Respiratory Effort Respiratory Depth Respiratory Pattern Normal Blood Pressure Blood Pressure Mean Pulse Ox Oxygen Delivery Method Oxygen Flow Rate (L/min) Physical Exam Narrative General: Alert, oriented, no apparent distress HEENT: Atraumatic, normocephalic Eyes: Anicteric, normal conjunctiva, extraocular movements grossly intact Neck: Supple Respiratory: Slight increased respiratory effort, scattered wheezes Cardiovascular: Regular rate and rhythm GI: Soft, nontender, nondistended Extremities: No edema Musculoskeletal: Moving all extremities Neuro: No overt focal neurological deficits Skin: No rashes appreciated Psych: Cooperative Results Lab / Micro Data 08/18/23 14:00 08/18/23 14:00 Labs: Laboratory Results - last 24 hr 08/18/23 14:00: WBC 6.6, RBC 3.27 L, Hgb 10.2 L, Hct 33.2 L, MCV 101.5 H, MCH 31.2, MCHC 30.7 L, RDW Std Deviation 58.0 H, RDW Coeff of Ha 15.6 H, Plt Count 236, MPV 10.0, Immature Gran % (Auto) 3.200 H, Neut % (Auto) 76.5 H, Lymph % (Auto) 11.9 L, [place] % (Auto) 6.0, Eos % (Auto) 1.8, Baso % (Auto) 0.6, Absolute Neuts (auto) 5.0, Absolute Lymphs (auto) 0.78 L, Nucleated RBC % 0.3, Sodium 145, Potassium 3.5, Chloride 109 H, Carbon Dioxide 31.0, Anion Gap 5, BUN 43 H, Creatinine 1.56 H, Est GFR (MDRD) Af Amer 41 L, Est GFR (MDRD) Non-Af 34 L, BUN/Creatinine Ratio 27.6 H, Glucose 155 H, Calcium 9.5, Troponin I High Sens 45, B-Natriuretic Peptide 149.2 H Micro: Microbiology 08/18/23 14:10 Mucosa - Nose SARS-CoV-2, Influenza & RSV (PCR) - Final SARS-CoV-2 (COVID 19 PCR) Imaging Radiology Impression Chest X-Ray 08/18/23 15:20 IMPRESSION: Infiltrates in the lingular segment of the left upper lobe as well as the right middle lobe. Radiographic follow-up recommended. Hyperinflation. Electronically Signed: Ramos Jolley MD at 15:32 EST , Assessment & Plan Assessment/Plan (1) COVID-19: (2) Hypoxia: (3) History of TIA (transient ischemic attack): (4) History of COPD: (5) Chronic kidney disease: QUALIFIERS: Chronic kidney disease stage: stage 3 (moderate) Chronic kidney disease stage 3 subtype: stage 3b (GFR 30-44) Qualified Code(s):N18.32 - Chronic kidney disease, stage 3b (6) Bilateral carotid artery stenosis: (7) Essential hypertension: PLAN: Plan #Hypoxia in setting of acute COVID-19 and chronic COPD -Respiratory panel, COVID/flu/RSV showed patient COVID-positive -Covid precautions -cxr: With infiltrates in the lingular segment of the left upper lobe and right middle lobe -Dexamethasone, remdesivir -Nebs, albuterol as needed -Mucinex -Incentive spirometry #Hx TIA/PAD/bilateral carotid stenosis -Cont plavix -Continue statin # Chronic pain -Follows with pain management -Continue current medications -Continue cymbalta #HTN -MIKAYLA 121/60 -Continue losartan, spirono, carvediolol, lasix # RLS -Continue pramipexole #Chronic macrocytic anemia -10.2, lower than 1/10 but pt chronically in 10-12 range and no report of blood loss -Check iron panel, b12, folate #CKDIIIb -Appears to be at baseline -Avoid nephrotoxic agents -Daily BMP #DVT ppx: Lovenox subcu Yenny Abdul MD Charges/Coding Visit Charges Inpatient E&M: 14850 Init Hosp L2 08/18/23 1601 <Electronically signed by Yenny Abdul MD> Cosigner Signature (if applicable): CC: Dr. Mady Dunn MD; Dr. Yenny Abdul MD~ Signed [facility] Work Phone: [phone] 725-452202-01-2024 Discharge summary Author [facility] August 18, 2023 3:56pm Note Date/Time August 18, 2023 1 :45pm [facility] Medical Records Department [address] [place] [address] Emergency Department Summary 08/18/23 MR#: [id number] Acct: [id number] Name: DICK ARTIS Rep #:[id number] : 1935 87 From: Matthew Schuster DO PCP: Dr. Mady Dunn MD Status:RE G ER Location: ED HPI <WILMER Ramos - Last Filed: 08/18/23 15:44> History of Present Illness Chief Complaint: Shortness of Breath Narrative Narrative: Patient is an 87-year-old female with history of COPD, history of TIA on Plavix,hyperlipidemia PAD, chronic kidney disease who presents to the emergency department with complaints of worsening shortness of breath over the last several days. Patient has had multiple low oxygen readings at different appointments. Today while she was at pain management, her pulse ox was 85%. Patient states has been much more short of breath and coughing. Patient is no longer use tobacco, she quit several years ago. Patient denies any specific chest pain. Patient that she is short of breath worse with movement. Patient while sitting in the room was 87% and placed on 2 L. [facility] <WILMER Ramos - Last Filed: 08/18/23 15:44> [facility] Medical History Bilateral carotid artery stenosis Claudication Diverticulosis Dyslipidemia Essential hypertension Limb weakness Neck and back pain PAD (peripheral artery disease) Renal cyst RLS (restless legs syndrome) Shoulder pain TIA (transient ischemic attack) Home Medications atorvastatin 40 mg tablet 40 mg PO QHS cholesterol 02/22/16 [History Last Taken 06/18/23] clopidogrel 75 mg tablet 75 mg PO DAILY BLOOD THINNER 02/22/16 [History Last Taken 06/19/23] multivitamin with folic acid 400 mcg tablet 1 tab PO DAILY supplement 02/22/16 [History Last Taken 08/18/23] spironolactone 25 mg tablet 25 mg PO DAILY FLUID RETENTION 02/22/16 [History Last Taken 06/19/23] albuterol sulfate 90 mcg/actuation aerosol inhaler 2 puff inhalation BID PRN shortness of breath or wheezing 03/16/18 [History Last Taken 08/17/23] cholecalciferol (vitamin D3) 25 mcg (1,000 unit) tablet 2,500 unit PO DAILY SUPPLEMENT 10/09/18 [History Last Taken 06/19/23] furosemide 40 mg tablet 40 mg PO DAILY FLUID RETENTION #90 tabs 01/27/22 [Rx Last Taken 08/18/23] albuterol sulfate 2.5 mg/3 mL (0.083 %) solution for nebulization 2.5 mg inhalation Q4H PRN shortness of breath or wheezing 05/28/22 [History Last Taken 08/18/23] ipratropium 0.5 mg-albuterol 3 mg (2.5 mg base)/3 mL nebulization soln 3 ml inhalation Q6H PRN shortness of breath 05/28/22 [History Last Taken 08/18/23] budesonide 0.5 mg/2 mL suspension for nebulization 0.25 mg inhalation TID PRN shortness of breath 12/06/22 [History Last Taken 08/18/23] carvedilol 12.5 mg tablet 12.5 mg PO BID CHOLESTEROL #180 tabs 04/27/23 [Rx Last Taken 06/19/23] losartan 50 mg tablet 50 mg PO DAILY BLOOD PRESSURE #90 tabs 08/01/23 [Rx Last Taken 08/18/23] duloxetine 30 mg capsule,delayed release 30 mg PO BID pain 08/17/23 [History Last Taken 08/18/23] hydrocodone-acetaminophen 5-325mg 5mg-325mg 1 tab PO TID PRN pain 08/17/23 [History Last Taken 08/18/23] pramipexole 1.5 mg tablet 1.5 mg PO QHS restless leg syndrome 08/18/23 [History Last Taken 08/17/23] Allergy/AdvReac Type Severity Reaction Status Date / Time lisinopril Allergy edema Verified 08/18/23 13:12 aspirin AdvReac Upset Verified 08/18/23 13:12 Stomach Family History Mother Heart disease Surgical History History of basal cell carcinoma excision History of carotid angioplasty History of kidney stones History of thyroid surgery History of total hysterectomy Social History household members: none Smoking Status: Former smoker how long ago did patient quit smokin years ago alcohol intake: current alcohol intake frequency: holidays/special occasions only details: rare substance use type: does not use caffeine: Yes Type: coffee Number of servings: 1 ROS <WILMER Ramos - Last Filed: 08/18/23 15:44> ROS ED ROS Narrative Constitutional: Negative for fever, chills, weight loss. Positive for weakness Eyes: Negative for vision loss, vision change, double vision ENT: Negative for any sore throat, ear pain, congestion Cardiovascular: Negative for any chest pain, tightness, palpitations Respiratory: Negative for any sputum production, hemoptysis. Positive for cough, dyspnea, dyspnea on exertion, orthopnea Gastrointestinal: Negative for any abdominal pain, nausea, vomiting, diarrhea, constipation, blood in stool, blood in vomit : Negative for any urinary frequency, dysuria, retention, blood in urine Muscle skeletal: Negative for any myalgias, arthralgias, neck pain, back pain Neurological: Negative for any headache, syncope, paresthesias, dizziness Skin: Negative for any rashes, lumps, itching, abrasions, lacerations Psychiatric: Negative for any depression, anxiety, stress, suicidal ideation, homicidal ideation Hematologic: Negative for any easy bruising, excessive bruising, easy bleeding Allergies: Negative for any eczema, hives, rash EXAM <WILMER Ramos - Last Filed: 08/18/23 15:44> Physical Exam Narrative Exam Narrative: Vital signs reviewed. Patient was 88% while resting in the room, placed on 2 L nasal cannula oxygen. Patient does not normally wear oxygen HEET: Head normocephalic atraumatic, TMs clear bilaterally. Posterior pharynx is clear, moist mucous membranes. Nares clear bilaterally. Neck: Supple with no lymphadenopathy or tenderness. No signs of meningismus. Cardiac: Regular rate and rhythm no murmurs gallops or rubs, equal peripheral pulses bilaterally. Respiratory: patient had crackles to both the left and right upper lobes, worse on the left. Diminished lung sounds in the bases. No wheezing heard on initialexamination.. No chest tenderness. Abdomen: Soft, nontender, nondistended. No abdominal bruit or pulsatile masses. No hepatosplenomegaly Extremities: +1 pitting edema no signs of gross trauma or deformity. Active full range of motion of all extremities. Neuro: Cranial nerves II through XII intact, no focal neurological deficits. Skin: Clean dry and intact with no rash, purpura, petechiae, vesicles or pustules. Backs/flank: No CVA tenderness, no midline spinal tenderness, no deformity. Psych: Normal mood and affect. No SI, HI or acute psychosis. Const Vital Signs: 08/18/23 13:12 08/18/23 14:02 08/18/23 14:03 Temperature 97.5 F L Temperature Source Temporal Pulse Rate 99 Respiratory Rate 20 H Respiratory Effort Normal Non-Labored Respiratory Depth Normal Respiratory Pattern Normal Blood Pressure 137/59 H Blood Pressure Mean 85 Pulse Ox 90 93 Oxygen Delivery Method Room Air Nasal Cannula Room Air Oxygen Flow Rate (L/min) 2.5 08/18/23 14:16 Temperature Temperature Source Pulse Rate 101 H Respiratory Rate 16 Respiratory Effort Respiratory Depth Respiratory Pattern Normal Blood Pressure Blood Pressure Mean Pulse Ox Oxygen Delivery Method Oxygen Flow Rate (L/min) <Dr. Matthew Schuster DO - Last Filed: 08/18/23 15:56> Physical Exam Const Vital Signs: 08/18/23 13:12 08/18/23 14:02 08/18/23 14:03 Temperature 97.5 F L Temperature Source Temporal Pulse Rate 99 Respiratory Rate 20 H Respiratory Effort Normal Non-Labored Respiratory Depth Normal Respiratory Pattern Normal Blood Pressure 137/59 H Blood Pressure Mean 85 Pulse Ox 90 93 Oxygen Delivery Method Room Air Nasal Cannula Room Air Oxygen Flow Rate (L/min) 2.5 08/18/23 14:16 Temperature Temperature Source Pulse Rate 101 H Respiratory Rate 16 Respiratory Effort Respiratory Depth Respiratory Pattern Normal Blood Pressure Blood Pressure Mean Pulse Ox Oxygen Delivery Method Oxygen Flow Rate (L/min) MDM <WILMER Ramos - Last Filed: 08/18/23 15:44> [facility] Lab Data Labs: Laboratory Results - last 24 hr 08/18/23 14:00 WBC 6.6 RBC 3.27 L Hgb 10.2 L Hct 33.2 L MCV 101.5 H MCH 31.2 MCHC 30.7 L RDW Std Deviation 58.0 H RDW Coeff of Ha 15.6 H Plt Count 236 MPV 10.0 Immature Gran % (Auto) 3.200 H Neut % (Auto) 76.5 H Lymph % (Auto) 11.9 L [place] % (Auto) 6.0 Eos % (Auto) 1.8 Baso % (Auto) 0.6 Absolute Neuts (auto) 5.0 Absolute Lymphs (auto) 0.78 L Nucleated RBC % 0.3 Sodium 145 Potassium 3.5 Chloride 109 H Carbon Dioxide 31.0 Anion Gap 5 BUN 43 H Creatinine 1.56 H Est GFR (MDRD) Af Amer 41 L Est GFR (MDRD) Non-Af 34 L BUN/Creatinine Ratio 27.6 H Glucose 155 H Calcium 9.5 Troponin I High Sens 45 B-Natriuretic Peptide 149.2 H Radiography Diagnostic Testing: Clinical Impression(s) from Imaging Studies Chest X-Ray 08/18/23 15:20 IMPRESSION: Infiltrates in the lingular segment of the left upper lobe as well as the right middle lobe. Radiographic follow-up recommended. Hyperinflation. Electronically Signed: Ramos Jolley MD at 15:32 EST , EKG Normal sinus rhythm: Attestation: I personally reviewed and interpreted this EKG as follows: Interpretation: Sinus Rhythm Comments: Normal sinus rhythm, right bundle branch block, rate of 89 bpm, NE 144 ms, QRS duration 120 ms, no acute ST elevation, no acute infarct noted. Treatment and Re-Evaluation :: Patient appears to be comfortable however on the monitor, patient is 87 to 88% on room air, patient was immediately placed on 2 L. Patient is been having low readings in the last couple days. Patient does complain of worsening cough, sheis having difficulty doing daily activities secondary to her shortness of breath. Differential diagnose includes COPD exacerbation, ACS, MA, CHF exacerbation, fluid overload. Patient will receive a full cardiac workup including 2 troponins, CBC, proBNP, chemistries. Two-view chest today will be completed. Patient will be given breathing treatments to see if this does anything to improve the patient's work of breathing. All radiologic examinations were read, reviewed by the emergency department attending. From these reads, a plan of care will be put in place. Patient CBC was unremarkable, patient's chemistry showed elevated BNP at 149.2. Troponin was negative. Patient's creatinine is 1.56, this is baseline and an improvement. Chloride is 109. Patient was positive for COVID-19. Secondary tothe patient having a positive COVID-19, hypoxia, patient was started on dexamethasone oral. Patient will need to be admitted to the hospital. I will reach out to the hospitalist. Spoke with hospitalist, they will admit the patient. X-ray shows infiltrates inthe lingular segment of the left upper lobe as well as right middle lobe. This could be secondary to the COVID-19 infection patient is doing well on oxygen. Given dexamethasone orally. All questions answered stable for admission. <Dr. Matthew Schuster, DO - Last Filed: 08/18/23 15:56> [facility] Narrative Medical decision making narrative: Patient appears to be comfortable however on the monitor, patient is 87 to 88% on room air, patient was immediately placed on 2 L. Patient is been having low readings in the last couple days. Patient does complain of worsening cough, sheis having difficulty doing daily activities secondary to her shortness of breath. Differential diagnose includes COPD exacerbation, ACS, MA, CHF exacerbation, fluid overload. Patient will receive a full cardiac workup including 2 troponins, CBC, proBNP, chemistries. Two-view chest today will be completed. Patient will be given breathing treatments to see if this does anything to improve the patient's work of breathing. All radiologic examinations were read, reviewed by the emergency department attending. From these reads, a plan of care will be put in place. Patient CBC was unremarkable, patient's chemistry showed elevated BNP at 149.2. Troponin was negative. Patient's creatinine is 1.56, this is baseline and an improvement. Chloride is 109. Patient was positive for COVID-19. Secondary tothe patient having a positive COVID-19, hypoxia, patient was started on dexamethasone oral. Patient will need to be admitted to the hospital. I will reach out to the hospitalist. Spoke with hospitalist, they will admit the patient. X-ray shows infiltrates inthe lingular segment of the left upper lobe as well as right middle lobe. This could be secondary to the COVID-19 infection patient is doing well on oxygen. Given dexamethasone orally. All questions answered stable for admission. This patient was seen with a PA/AUDIO SPECIALIST Individually assessed they patient including history and physical. I have reviewed everything on the chart that is availableand agree with the documentation provided by the PA/AUDIO SPECIALIST including discussion about the assessment, treatment plan, discussion, and return precautions. Patient presenting shortness of breath cough for the last couple of days. She is hypoxic on arrival desats to 87 to 88%. Patient does not wear home oxygen. Does have history of COPD. Differential as above. EKG on my interpretation shows a sinus rhythm at 89 bpm without sign of ischemic change or ectopy. Chestx-ray on my interpretation shows left and right-sided infiltrates however patient has a positive for COVID-19 and this is likely the cause. No leukocytosis with a white blood cell 6.6. Hemoglobin stable at 10.2. BNP minimally elevated 149. High-sensitivity troponin is 45. Patient was given breathing treatments and dexamethasone. Given she is hypoxic and requiring positive and is COVID-positive should be admitted to the hospital for the treatment. Impression: 1. COPD exacerbation 2. COVID-19 3. Hypoxic respiratory failure Lab Data Labs: Laboratory Results - last 24 hr 08/18/23 14:00 WBC 6.6 RBC 3.27 L Hgb 10.2 L Hct 33.2 L MCV 101.5 H MCH 31.2 MCHC 30.7 L RDW Std Deviation 58.0 H RDW Coeff of Ha 15.6 H Plt Count 236 MPV 10.0 Immature Gran % (Auto) 3.200 H Neut % (Auto) 76.5 H Lymph % (Auto) 11.9 L [place] % (Auto) 6.0 Eos % (Auto) 1.8 Baso % (Auto) 0.6 Absolute Neuts (auto) 5.0 Absolute Lymphs (auto) 0.78 L Nucleated RBC % 0.3 Sodium 145 Potassium 3.5 Chloride 109 H Carbon Dioxide 31.0 Anion Gap 5 BUN 43 H Creatinine 1.56 H Est GFR (MDRD) Af Amer 41 L Est GFR (MDRD) Non-Af 34 L BUN/Creatinine Ratio 27.6 H Glucose 155 H Calcium 9.5 Troponin I High Sens 45 B-Natriuretic Peptide 149.2 H Radiography Diagnostic Testing: Clinical Impression(s) from Imaging Studies Chest X-Ray 08/18/23 15:20 IMPRESSION: Infiltrates in the lingular segment of the left upper lobe as well as the right middle lobe. Radiographic follow-up recommended. Hyperinflation. Electronically Signed: Ramos Jolley MD at 15:32 EST , Discharge Plan Dx/Rx/DC Orders Clinical Impression: COVID-19, History of COPD, Hypoxia, Pneumonia due to COVID-19 virus Disposition Disposition: Acute Care [facility] What to do if you have Problems For any increased pain, shortness of breath, bleeding, nausea or vomiting, chestpain, or any unexpected problems, contact your Primary Care Provider. Call [facility] ([phone]) or report to the closest Emergency Room. Call 911 if necessary. 08/18/23 1556 <Electronically signed by Matthew Schuster DO> Cosigner Signature (if applicable): 08/18/23 1544 <Electronically signed by Rolly GUILLEN> CC: Dr. Mady Dunn MD ~ Signed [facility] Work Phone: [phone] Discharge summary Author [facility] August 18, 2023 3:56pm Note Date/Time August 18, 2023 1 :45pm [facility] Medical Records Department [address] [place] [id number] Emergency Department Summary 08/18/23 MR#: [id number] Acct: [id number] Name: DICK ARTIS Rep #:[id number] : 1935 87 From: Matthew Schuster DO PCP: Dr. Mady Dunn MD Status:RE G ER Location: ED HPI <WILMER Ramos - Last Filed: 08/18/23 15:44> History of Present Illness Chief Complaint: Shortness of Breath Narrative Narrative: Patient is an 87-year-old female with history of COPD, history of TIA on Plavix,hyperlipidemia PAD, chronic kidney disease who presents to the emergency department with complaints of worsening shortness of breath over the last several days. Patient has had multiple low oxygen readings at different appointments. Today while she was at pain management, her pulse ox was 85%. Patient states has been much more short of breath and coughing. Patient is no longer use tobacco, she quit several years ago. Patient denies any specific chest pain. Patient that she is short of breath worse with movement. Patient while sitting in the room was 87% and placed on 2 L. [facility] <WILMER Ramos - Last Filed: 08/18/23 15:44> [facility] Medical History Bilateral carotid artery stenosis Claudication Diverticulosis Dyslipidemia Essential hypertension Limb weakness Neck and back pain PAD (peripheral artery disease) Renal cyst RLS (restless legs syndrome) Shoulder pain TIA (transient ischemic attack) Home Medications atorvastatin 40 mg tablet 40 mg PO QHS cholesterol 02/22/16 [History Last Taken 06/18/23] clopidogrel 75 mg tablet 75 mg PO DAILY BLOOD THINNER 02/22/16 [History Last Taken 06/19/23] multivitamin with folic acid 400 mcg tablet 1 tab PO DAILY supplement 02/22/16 [History Last Taken 08/18/23] spironolactone 25 mg tablet 25 mg PO DAILY FLUID RETENTION 02/22/16 [History Last Taken 06/19/23] albuterol sulfate 90 mcg/actuation aerosol inhaler 2 puff inhalation BID PRN shortness of breath or wheezing 03/16/18 [History Last Taken 08/17/23] cholecalciferol (vitamin D3) 25 mcg (1,000 unit) tablet 2,500 unit PO DAILY SUPPLEMENT 10/09/18 [History Last Taken 06/19/23] furosemide 40 mg tablet 40 mg PO DAILY FLUID RETENTION #90 tabs 01/27/22 [Rx Last Taken 08/18/23] albuterol sulfate 2.5 mg/3 mL (0.083 %) solution for nebulization 2.5 mg inhalation Q4H PRN shortness of breath or wheezing 05/28/22 [History Last Taken 08/18/23] ipratropium 0.5 mg-albuterol 3 mg (2.5 mg base)/3 mL nebulization soln 3 ml inhalation Q6H PRN shortness of breath 05/28/22 [History Last Taken 08/18/23] budesonide 0.5 mg/2 mL suspension for nebulization 0.25 mg inhalation TID PRN shortness of breath 12/06/22 [History Last Taken 08/18/23] carvedilol 12.5 mg tablet 12.5 mg PO BID CHOLESTEROL #180 tabs 04/27/23 [Rx Last Taken 06/19/23] losartan 50 mg tablet 50 mg PO DAILY BLOOD PRESSURE #90 tabs 08/01/23 [Rx Last Taken 08/18/23] duloxetine 30 mg capsule,delayed release 30 mg PO BID pain 08/17/23 [History Last Taken 08/18/23] hydrocodone-acetaminophen 5-325mg 5mg-325mg 1 tab PO TID PRN pain 08/17/23 [History Last Taken 08/18/23] pramipexole 1.5 mg tablet 1.5 mg PO QHS restless leg syndrome 08/18/23 [History Last Taken 08/17/23] Allergy/AdvReac Type Severity Reaction Status Date / Time lisinopril Allergy edema Verified 08/18/23 13:12 aspirin AdvReac Upset Verified 08/18/23 13:12 Stomach Family History Mother Heart disease Surgical History History of basal cell carcinoma excision History of carotid angioplasty History of kidney stones History of thyroid surgery History of total hysterectomy Social History household members: none Smoking Status: Former smoker how long ago did patient quit smokin years ago alcohol intake: current alcohol intake frequency: holidays/special occasions only details: rare substance use type: does not use caffeine: Yes Type: coffee Number of servings: 1 ROS <WILMER Ramos - Last Filed: 08/18/23 15:44> ROS ED ROS Narrative Constitutional: Negative for fever, chills, weight loss. Positive for weakness Eyes: Negative for vision loss, vision change, double vision ENT: Negative for any sore throat, ear pain, congestion Cardiovascular: Negative for any chest pain, tightness, palpitations Respiratory: Negative for any sputum production, hemoptysis. Positive for cough, dyspnea, dyspnea on exertion, orthopnea Gastrointestinal: Negative for any abdominal pain, nausea, vomiting, diarrhea, constipation, blood in stool, blood in vomit : Negative for any urinary frequency, dysuria, retention, blood in urine Muscle skeletal: Negative for any myalgias, arthralgias, neck pain, back pain Neurological: Negative for any headache, syncope, paresthesias, dizziness Skin: Negative for any rashes, lumps, itching, abrasions, lacerations Psychiatric: Negative for any depression, anxiety, stress, suicidal ideation, homicidal ideation Hematologic: Negative for any easy bruising, excessive bruising, easy bleeding Allergies: Negative for any eczema, hives, rash EXAM <WILMER Ramos - Last Filed: 08/18/23 15:44> Physical Exam Narrative Exam Narrative: Vital signs reviewed. Patient was 88% while resting in the room, placed on 2 L nasal cannula oxygen. Patient does not normally wear oxygen HEET: Head normocephalic atraumatic, TMs clear bilaterally. Posterior pharynx is clear, moist mucous membranes. Nares clear bilaterally. Neck: Supple with no lymphadenopathy or tenderness. No signs of meningismus. Cardiac: Regular rate and rhythm no murmurs gallops or rubs, equal peripheral pulses bilaterally. Respiratory: patient had crackles to both the left and right upper lobes, worse on the left. Diminished lung sounds in the bases. No wheezing heard on initialexamination.. No chest tenderness. Abdomen: Soft, nontender, nondistended. No abdominal bruit or pulsatile masses. No hepatosplenomegaly Extremities: +1 pitting edema no signs of gross trauma or deformity. Active full range of motion of all extremities. Neuro: Cranial nerves II through XII intact, no focal neurological deficits. Skin: Clean dry and intact with no rash, purpura, petechiae, vesicles or pustules. Backs/flank: No CVA tenderness, no midline spinal tenderness, no deformity. Psych: Normal mood and affect. No SI, HI or acute psychosis. Const Vital Signs: 08/18/23 13:12 08/18/23 14:02 08/18/23 14:03 Temperature 97.5 F L Temperature Source Temporal Pulse Rate 99 Respiratory Rate 20 H Respiratory Effort Normal Non-Labored Respiratory Depth Normal Respiratory Pattern Normal Blood Pressure 137/59 H Blood Pressure Mean 85 Pulse Ox 90 93 Oxygen Delivery Method Room Air Nasal Cannula Room Air Oxygen Flow Rate (L/min) 2.5 08/18/23 14:16 Temperature Temperature Source Pulse Rate 101 H Respiratory Rate 16 Respiratory Effort Respiratory Depth Respiratory Pattern Normal Blood Pressure Blood Pressure Mean Pulse Ox Oxygen Delivery Method Oxygen Flow Rate (L/min) <Dr. Matthew Schuster DO - Last Filed: 08/18/23 15:56> Physical Exam Const Vital Signs: 08/18/23 13:12 08/18/23 14:02 08/18/23 14:03 Temperature 97.5 F L Temperature Source Temporal Pulse Rate 99 Respiratory Rate 20 H Respiratory Effort Normal Non-Labored Respiratory Depth Normal Respiratory Pattern Normal Blood Pressure 137/59 H Blood Pressure Mean 85 Pulse Ox 90 93 Oxygen Delivery Method Room Air Nasal Cannula Room Air Oxygen Flow Rate (L/min) 2.5 08/18/23 14:16 Temperature Temperature Source Pulse Rate 101 H Respiratory Rate 16 Respiratory Effort Respiratory Depth Respiratory Pattern Normal Blood Pressure Blood Pressure Mean Pulse Ox Oxygen Delivery Method Oxygen Flow Rate (L/min) [facility] <WILMER Ramos - Last Filed: 08/18/23 15:44> [facility] Lab Data Labs: Laboratory Results - last 24 hr 08/18/23 14:00 WBC 6.6 RBC 3.27 L Hgb 10.2 L Hct 33.2 L MCV 101.5 H MCH 31.2 MCHC 30.7 L RDW Std Deviation 58.0 H RDW Coeff of Ha 15.6 H Plt Count 236 MPV 10.0 Immature Gran % (Auto) 3.200 H Neut % (Auto) 76.5 H Lymph % (Auto) 11.9 L [place] % (Auto) 6.0 Eos % (Auto) 1.8 Baso % (Auto) 0.6 Absolute Neuts (auto) 5.0 Absolute Lymphs (auto) 0.78 L Nucleated RBC % 0.3 Sodium 145 Potassium 3.5 Chloride 109 H Carbon Dioxide 31.0 Anion Gap 5 BUN 43 H Creatinine 1.56 H Est GFR (MDRD) Af Amer 41 L Est GFR (MDRD) Non-Af 34 L BUN/Creatinine Ratio 27.6 H Glucose 155 H Calcium 9.5 Troponin I High Sens 45 B-Natriuretic Peptide 149.2 H Radiography Diagnostic Testing: Clinical Impression(s) from Imaging Studies Chest X-Ray 08/18/23 15:20 IMPRESSION: Infiltrates in the lingular segment of the left upper lobe as well as the right middle lobe. Radiographic follow-up recommended. Hyperinflation. Electronically Signed: Ramos Jolley MD at 15:32 EST , EKG Normal sinus rhythm: Attestation: I personally reviewed and interpreted this EKG as follows: Interpretation: Sinus Rhythm Comments: Normal sinus rhythm, right bundle branch block, rate of 89 bpm, NE 144 ms, QRS duration 120 ms, no acute ST elevation, no acute infarct noted. Treatment and Re-Evaluation :: Patient appears to be comfortable however on the monitor, patient is 87 to 88% on room air, patient was immediately placed on 2 L. Patient is been having low readings in the last couple days. Patient does complain of worsening cough, sheis having difficulty doing daily activities secondary to her shortness of breath. Differential diagnose includes COPD exacerbation, ACS, MA, CHF exacerbation, fluid overload. Patient will receive a full cardiac workup including 2 troponins, CBC, proBNP, chemistries. Two-view chest today will be completed. Patient will be given breathing treatments to see if this does anything to improve the patient's work of breathing. All radiologic examinations were read, reviewed by the emergency department attending. From these reads, a plan of care will be put in place. Patient CBC was unremarkable, patient's chemistry showed elevated BNP at 149.2. Troponin was negative. Patient's creatinine is 1.56, this is baseline and an improvement. Chloride is 109. Patient was positive for COVID-19. Secondary tothe patient having a positive COVID-19, hypoxia, patient was started on dexamethasone oral. Patient will need to be admitted to the hospital. I will reach out to the hospitalist. Spoke with hospitalist, they will admit the patient. X-ray shows infiltrates inthe lingular segment of the left upper lobe as well as right middle lobe. This could be secondary to the COVID-19 infection patient is doing well on oxygen. Given dexamethasone orally. All questions answered stable for admission. <Dr. Matthew Schuster, DO - Last Filed: 08/18/23 15:56> [facility] MDM Narrative Medical decision making narrative: Patient appears to be comfortable however on the monitor, patient is 87 to 88% on room air, patient was immediately placed on 2 L. Patient is been having low readings in the last couple days. Patient does complain of worsening cough, sheis having difficulty doing daily activities secondary to her shortness of breath. Differential diagnose includes COPD exacerbation, ACS, MA, CHF exacerbation, fluid overload. Patient will receive a full cardiac workup including 2 troponins, CBC, proBNP, chemistries. Two-view chest today will be completed. Patient will be given breathing treatments to see if this does anything to improve the patient's work of breathing. All radiologic examinations were read, reviewed by the emergency department attending. From these reads, a plan of care will be put in place. Patient CBC was unremarkable, patient's chemistry showed elevated BNP at 149.2. Troponin was negative. Patient's creatinine is 1.56, this is baseline and an improvement. Chloride is 109. Patient was positive for COVID-19. Secondary tothe patient having a positive COVID-19, hypoxia, patient was started on dexamethasone oral. Patient will need to be admitted to the hospital. I will reach out to the hospitalist. Spoke with hospitalist, they will admit the patient. X-ray shows infiltrates inthe lingular segment of the left upper lobe as well as right middle lobe. This could be secondary to the COVID-19 infection patient is doing well on oxygen. Given dexamethasone orally. All questions answered stable for admission. This patient was seen with a PA/AUDIO SPECIALIST Individually assessed they patient including history and physical. I have reviewed everything on the chart that is availableand agree with the documentation provided by the PA/AUDIO SPECIALIST including discussion about the assessment, treatment plan, discussion, and return precautions. Patient presenting shortness of breath cough for the last couple of days. She is hypoxic on arrival desats to 87 to 88%. Patient does not wear home oxygen. Does have history of COPD. Differential as above. EKG on my interpretation shows a sinus rhythm at 89 bpm without sign of ischemic change or ectopy. Chestx-ray on my interpretation shows left and right-sided infiltrates however patient has a positive for COVID-19 and this is likely the cause. No leukocytosis with a white blood cell 6.6. Hemoglobin stable at 10.2. BNP minimally elevated 149. High-sensitivity troponin is 45. Patient was given breathing treatments and dexamethasone. Given she is hypoxic and requiring positive and is COVID-positive should be admitted to the hospital for the treatment. Impression: 1. COPD exacerbation 2. COVID-19 3. Hypoxic respiratory failure Lab Data Labs: Laboratory Results - last 24 hr 08/18/23 14:00 WBC 6.6 RBC 3.27 L Hgb 10.2 L Hct 33.2 L MCV 101.5 H MCH 31.2 MCHC 30.7 L RDW Std Deviation 58.0 H RDW Coeff of Ha 15.6 H Plt Count 236 MPV 10.0 Immature Gran % (Auto) 3.200 H Neut % (Auto) 76.5 H Lymph % (Auto) 11.9 L [place] % (Auto) 6.0 Eos % (Auto) 1.8 Baso % (Auto) 0.6 Absolute Neuts (auto) 5.0 Absolute Lymphs (auto) 0.78 L Nucleated RBC % 0.3 Sodium 145 Potassium 3.5 Chloride 109 H Carbon Dioxide 31.0 Anion Gap 5 BUN 43 H Creatinine 1.56 H Est GFR (MDRD) Af Amer 41 L Est GFR (MDRD) Non-Af 34 L BUN/Creatinine Ratio 27.6 H Glucose 155 H Calcium 9.5 Troponin I High Sens 45 B-Natriuretic Peptide 149.2 H Radiography Diagnostic Testing: Clinical Impression(s) from Imaging Studies Chest X-Ray 08/18/23 15:20 IMPRESSION: Infiltrates in the lingular segment of the left upper lobe as well as the right middle lobe. Radiographic follow-up recommended. Hyperinflation. Electronically Signed: Ramos Jolley MD at 15:32 EST , Discharge Plan Dx/Rx/DC Orders Clinical Impression: COVID-19, History of COPD, Hypoxia, Pneumonia due to COVID-19 virus Disposition Disposition: Acute Care Hospital [facility] What to do if you have Problems For any increased pain, shortness of breath, bleeding, nausea or vomiting, chestpain, or any unexpected problems, contact your Primary Care Provider. Call [facility] ([phone]) or report to the closest Emergency Room. Call 911 if necessary. 08/18/23 1556 <Electronically signed by Matthew Schuster DO> Cosigner Signature (if applicable): 08/18/23 1544 <Electronically signed by Rolly GUILLEN> CC: Dr. Mady Dunn MD ~ Signed [facility] Work Phone: 1(501) 890-969902-01-2024 Miscellaneous Notes* Telephone Encounter - Angélica Franco LPN - 08/18/2023 12:47 PM EST Spoke with daughter. Advised ER evaluation. Patient's baseline is between 95- 97%. Hypoxia noted at cardiology appt yesterday as well. She needs evaluated. Angélica Franco LPN * Telephone Encounter - Selina Montgomery RN - 08/18/2023 10:44 AM EST Call received from Pt's daughter - name & verified. Pt's daughter, Raimundo, calls and states that Pt started her Doxycycline yesterday. She had a pain management appointment this morning, and her SpO2 in office was between 85%-86% on room air. Pt denies worsening or new symptoms since she spoke to Gretta Hernandez's office yesterday. Remains afebrile. No audible wheezing or productive cough. Pt was instructed to call county health officer for advice or further instruction. Please advise. Raimundo Selina Montgomery RN August 18, 2023 10:52 AM [facility] Discharge summary Author Jay De Luna [facility] July 27, 2023 10:53pm Note Date/Time July 27, 2023 6 :27pm [facility] Medical Records Department [address] [place] [address] Emergency Department Summary 07/27/23 MR#: [id number] Acct: [id number] Name: STEFFDICKLAUREN LOPEZ Rep #:[id number] : 1935 87 From: Jay Rangel PCP: Dr. Mady Dunn MD Status:RE G ER Location: ED HPI History of Present Illness Chief Complaint: Hypotension [facility] Medical History Bilateral carotid artery stenosis Claudication Diverticulosis Dyslipidemia Essential hypertension Limb weakness Neck and back pain PAD (peripheral artery disease) Renal cyst RLS (restless legs syndrome) Shoulder pain TIA (transient ischemic attack) Home Medications atorvastatin 40 mg tablet 40 mg PO QHS 02/22/16 [History Last Taken 06/18/23] clopidogrel 75 mg tablet 75 mg PO DAILY 02/22/16 [History Last Taken 06/19/23] multivitamin with folic acid 400 mcg tablet 1 tab PO DAILY 02/22/16 [History Last Taken 06/19/23] pramipexole 0.5 mg tablet 1.5 mg PO QHS 02/22/16 [History Last Taken 06/18/23] spironolactone 25 mg tablet 25 mg PO DAILY 02/22/16 [History Last Taken 06/19/23] albuterol sulfate 90 mcg/actuation aerosol inhaler 2 puff inhalation BID PRN Sob&/Or Wheezing 03/16/18 [History Last Taken 06/19/23] cholecalciferol (vitamin D3) 25 mcg (1,000 unit) tablet 2,500 unit PO DAILY 10/09/18 [History Last Taken 06/19/23] furosemide 40 mg tablet 40 mg PO DAILY #90 tabs 01/27/22 [Rx Last Taken 06/19/23] albuterol sulfate 2.5 mg/3 mL (0.083 %) solution for nebulization 2.5 mg inhalation Q4H PRN shortness of breath or wheezing 05/28/22 [History Last Taken 06/19/23] ipratropium 0.5 mg-albuterol 3 mg (2.5 mg base)/3 mL nebulization soln 3 ml inhalation Q6H PRN shortness of breath 05/28/22 [History Last Taken 06/19/23] budesonide 0.5 mg/2 mL suspension for nebulization 0.25 mg inhalation TID PRN sob 12/06/22 [History Last Taken 06/19/23] losartan 100 mg-hydrochlorothiazide 25 mg tablet 1 tab PO DAILY 12/06/22 [History Last Taken 06/19/23] carvedilol 12.5 mg tablet 12.5 mg PO BID #180 tabs 04/27/23 [Rx Last Taken 06/19/23] benzonatate 100 mg capsule 200 mg (2 x 100 mg) PO TID PRN Acne #30 caps 06/25/23[Rx Last Taken Unknown] dextromethorphan-guaifenesin 30 mg-600 mg tablet extended [id number] hr (Mucinex DM) 2 tab PO BID 5 days #20 tabs 06/25/23 [Rx Last Taken Unknown] prednisone 10 mg tablet 10 mg PO DAILY #30 tabs 06/25/23 [Rx Last Taken Unknown] prednisone 50 mg tablet 50 mg PO DAILY 5 days #5 tabs 07/27/23 [Rx Last Taken Unknown] Allergy/AdvReac Type Severity Reaction Status Date / Time lisinopril Allergy edema Verified 07/27/23 16:29 aspirin AdvReac Upset Verified 07/27/23 16:29 Stomach Family History Mother Heart disease Surgical History History of basal cell carcinoma excision History of carotid angioplasty History of kidney stones History of thyroid surgery History of total hysterectomy Social History (Updated 06/19/23 @ 14:23 by Swapna Bates) household members: none Smoking Status: Former smoker how long ago did patient quit smokin years ago alcohol intake: current alcohol intake frequency: holidays/special occasions only details: rare substance use type: does not use caffeine: Yes Type: coffee Number of servings: 1 EXAM Physical Exam Const Vital Signs: 07/27/23 16:32 07/27/23 19:06 07/27/23 19:07 Temperature 98.2 F Temperature Source Temporal Pulse Rate 68 Respiratory Rate 14 Respiratory Effort Normal Non-Labored Respiratory Depth Respiratory Pattern Normal Blood Pressure 91/73 Blood Pressure Mean 79 Pulse Ox 97 Oxygen Delivery Method Room Air Room Air 07/27/23 19:08 07/27/23 18:45 07/27/23 19:00 Temperature Temperature Source Pulse Rate 65 57 L Respiratory Rate 19 H 20 H Respiratory Effort Normal Non-Labored Respiratory Depth Normal Respiratory Pattern Normal Blood Pressure 136/55 H 118/47 L Blood Pressure Mean 82 70 Pulse Ox 95 96 Oxygen Delivery Method Room Air 07/27/23 19:18 07/27/23 21:26 Temperature Temperature Source Pulse Rate 63 70 Respiratory Rate 17 20 H Respiratory Effort Respiratory Depth Respiratory Pattern Blood Pressure 123/48 H Blood Pressure Mean 73 Pulse Ox 98 Oxygen Delivery Method Room Air [facility] [place] Narrative Medical decision making narrative: HISTORY OF PRESENT ILLNESS: 87-year-old female presents with concern for feeling out of it. States she was sent in by Dr. Bales for low blood pressure. She says she is more short of breath than normal as well. She notes a history of COPD. She further statesbeen more short of breath today. Denies bleeding diathesis. The patient deniesrecent surgery in the last 4 weeks or immobilization in the last 3 days, denies previous diagnosis of DVT or PE, hemoptysis, unilateral leg swelling or malignancy with treatment the last 6 months or palliative. No estrogen use noted. Denies chest pain. Notes lower extremity edema. Notes dyspnea on exertion. The patient denies abdominal pain to me. No recent falls, no new back pain. REVIEW OF SYSTEMS: Pertinent positives: Shortness of breath, lower extremity edema Pertinent negatives: Chest pain, abdominal pain PHYSICAL EXAM: Nursing triage notes reviewed, Vital signs reviewed Constitutional: please see mdm HENT: MMM Eyes: Pupils equal round and reactive to light, Extraocular muscles intact Neck: No stridor, no JVD, full neck ROM Lungs: Clear to auscultation, No wheezing or rales. No increased work of breathing, no conversational dyspnea, no accessory muscle use, no nasal flaring. No respiratory distress noted Heart: Regular rate and rhythm, No murmurs, No rubs and No gallops, 2+ distal pulses (radial, femoral, posterior tibial) in all extremities Abdomen: Soft, there is no tenderness, rigidity, rebound or guarding, no obviousperitoneal signs, no palpable pulsatile abdominal masses, no auscultated abdominal bruit : No CVAT Extremities: No edema Neuro: No focal neurological deficits, cranial nerves II through XII intact, 5/5strength in all extremities. Intact sensation to light touch in all extremities,2+ reflexes bilateral patella tendons. Normal gait. No ataxia. Skin: No rash or lesions noted MEDICAL DECISION MAKING: Chief Complaint: Hypotension, shortness of breath External records reviewed: Last ED visit in June 19, 2023 for acute exacerbation of COPD. Admitted at that time given hypoxia. Last [id number] shows ejection fraction of 65% Factors affecting care: COPD, hypertension, hyperlipidemia, peripheral artery disease Social determinants of health: none History obtained from others: Patient's family Consults: none MDM Narrative: She was initially afebrile, nontoxic-appearing, had soft blood pressures which resolved spontaneously I considered the following differential diagnosis: COPD exacerbation, CHF, PE, pneumonia, COVID, flu, RSV, arrhythmia, ACS ALL IMAGES (IF OBTAINED) HAVE BEEN PERSONALLY REVIEWED AND INTERPRETED BY MYSELF. EKG with normal sinus rhythm, left axis deviation, right bundle branch block, noSTEMI similar to prior EKG on June 21, 2023 CBC without leukocytosis, noted mild anemia at baseline, High-sensitivity troponin is negative, no evidence of myocardial ischemia Lactate is wnl indicating no end-organ hypoperfusion and/or hypoxia. BNP within normal limits suggestive of no increased ventricular stretch, transmural wall pressure or heart failure. RSV, flu, COVID negative Dispo The synthesis of the patient's history, physical exam, labs images suggest a likely COPD exacerbation. Patient was given empiric COPD therapy with DuoNebs. She was ambulated without significant hypoxia. There is no indication for admission at this time. There is no signs of hypotension in the emergency department. Low suspicion for PE given low risk Wells score and lack of significant elevations in BNP, troponin lack signs of right heart strain on the patient's EKG. patient was given a prescription for prednisone. Return precautions were discussed. The patient and/or family, caregivers express understanding. The patient and/orfamily, caregivers agrees with the plan. Shared decision making: I will have a discussion with the patient and or visitors regarding risk/benefits of further testing or admission. They will be made aware of of the risk/benefits inherent in this decision they will be given the opportunity to voice understanding. Total critical care time today provided was at least 0 minutes. This excludes separately billable procedures. Critical care time (if documented) is secondary to the patient having high probability of clinically significant/life threatening deterioration in the patient's condition which required my urgent intervention. Impression: 1. COPD exacerbation 2. Anemia Dispo: Discharge home Lab Data Labs: Laboratory Results - last 24 hr 07/27/23 18:40 WBC 9.4 RBC 3.65 L Hgb 11.9 L Hct 36.3 L MCV 99.5 H MCH 32.6 H MCHC 32.8 RDW Std Deviation 51.5 H RDW Coeff of Ha 14.2 Plt Count 154 MPV 11.0 Immature Gran % (Auto) 1.500 H Neut % (Auto) 72.1 H Lymph % (Auto) 15.5 L [place] % (Auto) 10.1 H Eos % (Auto) 0.4 Baso % (Auto) 0.4 Absolute Neuts (auto) 6.8 Absolute Lymphs (auto) 1.46 Nucleated RBC % 0 Sodium 144 Potassium 4.0 Chloride 108 H Carbon Dioxide 29.0 Anion Gap 7 BUN 93 H Creatinine 2.07 H Est GFR (MDRD) Af Amer 29 L Est GFR (MDRD) Non-Af 24 L BUN/Creatinine Ratio 44.9 H Glucose 109 H Lactic Acid 0.8 Calcium 8.9 Troponin I High Sens 17 B-Natriuretic Peptide 67.3 Radiography Chest X-Ray - ED: Read by ED Physician Diagnostic Testing: Clinical Impression(s) from Imaging Studies Chest X-Ray 07/27/23 20:50 IMPRESSION: Stable chest without significant acute focal airspace disease. Again noted thin linear bibasilar atelectasis versus scarring. Electronically Signed: Stuart Garcia MD at 22:27 EST , Discharge Plan Triage Chief Complaint: Hypotension Other Complaint: Abd Pain Shortness of Breath ED Provider: Jay De Luna Dx/Rx/DC Orders Clinical Impression: COPD with exacerbation Instructions: Discharge Instructions: COPD Prescriptions: New prednisone 50 mg tablet 50 mg PO DAILY 5 Days Qty: 5 0RF No Action cholecalciferol (vitamin D3) 1,000 unit tablet 2,500 unit PO DAILY albuterol sulfate 2.5 mg /3 mL (0.083 %) solution for nebulization 2.5 mg inhalation Q4H PRN (Reason: shortness of breath or wheezing) ipratropium-albuterol 0.5 mg-3 mg(2.5 mg base)/3 mL solution for nebulization 3 ml inhalation Q6H PRN (Reason: shortness of breath) budesonide 0.5 mg/2 mL suspension for nebulization 0.25 mg inhalation TID PRN (Reason: sob) atorvastatin 40 MG tablet 40 mg PO QHS Patient Comments: reduces cholesterol clopidogrel 75 MG tablet 75 mg PO DAILY Patient Comments: blood thinner spironolactone 25 MG tablet 25 mg PO DAILY Patient Comments: water pill/diuretic pramipexole 0.5 MG tablet 1.5 mg PO QHS Patient Comments: restless leg syndrome multivitamin with folic acid 1 TABLET tablet 1 tab PO DAILY Patient Comments: supplement albuterol sulfate 90 mcg/actuation HFA aerosol inhaler 2 puff INHALATION BID PRN (Reason: Sob &/Or Wheezing) Patient Comments: BREATHING losartan-hydrochlorothiazide 100-25 mg tablet 1 tab PO DAILY Patient Comments: 100/25MG. BLOOD PRESSURE/HEART benzonatate 100 mg Capsule 200 mg PO TID PRN (Reason: Acne) Qty: 30 0RF Mucinex DM 30-600 mg Tablet Extended Release 12 Hr 2 tab PO BID 5 Days Qty: 20 0RF prednisone 10 mg tablet 10 mg PO DAILY Qty: 30 0RF Rx Instructions: 40 mg for 3 days 30 mg for 3 days, 20 mg for 3 days,and 10 mg for 3 days furosemide 40 mg tablet 40 mg PO DAILY Qty: 90 3RF Hold Instructions: Hold for 2 days. carvedilol 12.5 mg tablet 12.5 mg PO BID Qty: 180 4RF Rx Instructions: must administer with a meal/food Primary Care Provider: Mady Dunn Referrals: Mady Dunn MD [Primary Care Provider] - Activity Restrictions/Additional Instructions: Thank you for trusting us with your care today! Please take Tylenol (2 pills, 650 mg), ibuprofen (2 pills, 400 mg) every 6 hoursas needed for pain and fever control. Please take prednisone as prescribed. Please return to the emergency department if your symptoms change or worsen. Please follow with your primary care physician for further outpatient evaluationand management. Disposition Disposition: Home, Self Care What to do if you have Problems For any increased pain, shortness of breath, bleeding, nausea or vomiting, chestpain, or any unexpected problems, contact your Primary Care Provider. Call [email or web address] ([phone]) or report to the closest Emergency Room. Call 911 if necessary. 07/27/232252 <Electronically signed by Jay De Luna DO> Cosigner Signature (if applicable): CC: Dr. Mady Dunn MD ~ Signed [facility] Work Phone: [phone] 928-187212-28-2023 History of Present illness Narrative* Nilsa Palacios RT(R) - 07/14/2023 10:30 AM EST Radiology Service Progress Note PATIENT NAME: Dick Artis DATE OF SERVICE: July 14, 2023 TIME: 10:24 AM PATIENT IDENTITY VERIFICATION COMPLETED USING TWO (2) IDENTIFIERS: Name and Date of confirmedby patient verbally. FALL SCREENING: Has the patient had 2 falls in the last year or 1 fall with injury or currently using an Ambulatory Assistive Device (Walker, Cane, Wheelchair, Crutches, etc.)? No PATIENT GENDER DATA: Female. status: : No status: NO. PATIENT RELEVANT IMPLANT DATA REVIEWED: Yes RADIOLOGY DEPARTMENT: General X-ray: Exam(s) Completed: Chest X-Ray PERIPHERAL IV DATA: Not applicable SIGNED BY: RT Fernie(R) July 14, 2023 10:24 AM documented in [facility] encounterP[facility]12-[facility]23 Miscellaneous Notes* Telephone Encounter - Janice Jessica RN - 07/07/2023 11:18 AM EST Patient call in for shortness of breath [...] SYMPTOMS: Dizziness, difficulty breathing Protocols used: Breathing Ruhkfhvfav-[id number]-[id number], Chest Xnuw-SCUYX-DA documented in this encounterPike [facility]12-15-2023 History of Present illness Narrative* Nilsa Palacios RT(R) - 07/01/2023 2:40 PM EST Radiology Service Progress Note PATIENT NAME: Dick Artis DATE OF SERVICE: July 01, 2023 TIME: 2:36 PM PATIENT IDENTITY VERIFICATION COMPLETED USING TWO (2) IDENTIFIERS: Name and Date of confirmedby patient verbally. FALL SCREENING: Has the patient had 2 falls in the last year or 1 fall with injury or currently using an Ambulatory Assistive Device (Walker, Cane, Wheelchair, Crutches, etc.)? No PATIENT GENDER DATA: Female. status: : No status: NO. PATIENT RELEVANT IMPLANT DATA REVIEWED: Yes RADIOLOGY DEPARTMENT: General X-ray: Exam(s) Completed: Chest X-Ray PERIPHERAL IV DATA: Not applicable SIGNED BY: RT Fernie(R) July 01, 2023 2:36 PM documented in this encounterPike [facility]12-15-2023 History of Present illness Narrative* Rosaura Suárez APRN.YARD CRANE OPERATOR - 07/01/2023 2:14 PM EST Transitional Care Management Progress Note The patients TCM visit was performed within the 7 days of discharge. TCM Eligibility Documentation The following information was gathered during the initial Patient Outreach Encounter. No flowsheet data found. If no data exists please enter it manually. If data exists please delete date of discharge and dateof initial contact seen below. Patient's Date of discharge: 06/25/2023 Date of initial coordinator contact after discharge: 06/28/2023 Discharge diagnosis: COPD exacerbation and hypoxia Medication review completed Yes, verified with visit today Rosaura Suárez APRN.YARD CRANE OPERATOR Provider Documentation: In follow-up of hospitalization, Dick Artis is a 87 year old female with the chief complaint of hospital discharge follow up. I have reviewed the patient s last hospital course including diagnostic testing performed during this hospitalization, their discharge medications, and my assessment and plan with the patient and anyfamily members present at today s visit. HPI: Emerson presents today for a hospital discharge follow up. Admitted to [facility] 06/19 and discharged on 06/25. Had [...] kidney disease) stage 3, GFR 30-59 ml/min ([facility]) 07/30/2018 COPD (chronic obstructive pulmonary disease) ([facility]) Diverticulosis of colon (without mention of hemorrhage) Diverticulosis Hypertension Rolly Smith MD Osteoporosis, unspecified Personal history of colonic polyps Colon polyps Restless legs syndrome (RLS) TIA (transient ischemic attack) 2008 Plavix ALLERGIES: Reviewed and updated ALLERGIES Allergen [...] (2.5 ML) VIA NEBULIZER FOUR TIMES A DAYOVER 5 TO 15 MINUTES FOR WHEEZING OR SHORTNESS OF BREATH albuterol HFA (VENTOLIN HFA) 90 mcg/actuation inhaler Inhale 2 Puffs as instructed every 4 hours asneeded for wheezing/shortness of breath. May take 2 [...] from today's visit and in agreement with treatmentplan. Questions answered. Agrees to call the office [...] as well as compliance with taking medications. Age- appropriate health preventative measures were discussed. Return if symptoms worsen or fail to improve, for Keep next scheduled appointment.. Rosaura Suárez APRN-CORINNA documented in this encounterPike [facility] Hospital12-14-2023 History of Present illness Narrative* Alison Hi RN - 06/30/2023 2:22 PM EST CDM Telephonic Outreach Provider Action/FYI CDM: CKD, COPD Called Pt, unable to leave?a message to verify symptom status and needs. Line rang busy. Contacted for: Routine Telephonic Outreach Contact made with patient: No, unable to leave message. Will reattempt call Alison Hi RN June 30, 2023 2:22 PM * Alison Hi RN - 06/28/2023 5:07 PM EST CDM Telephonic Outreach Provider Action/FYI CDM: CKD, COPD Left a message to verify symptom status, instructed to contact PCP for condition changes and needs. Contacted for: Routine Telephonic Outreach Contact made with patient: No, left message. Alison Hi RN June 28, 2023 5:08 PM documented in this encounterPike [facility]11-06-2023 History of Present illness Narrative* Rosaura Suárez APRN.YARD CRANE OPERATOR - 05/23/2023 8:02 AM EST SUBJECTIVE Dick Artis is a 87 year old female here today for a check up on her medical problems. Chief Complaint Patient presents with: Recheck: blood pressure HPI Dick Artis is a 87 year old female. Follow [...] (2.5 ML) VIA NEBULIZER FOUR TIMES A DAYOVER 5 TO 15 MINUTES FOR WHEEZING OR SHORTNESS OF BREATH albuterol HFA (VENTOLIN HFA) 90 mcg/actuation inhaler Inhale 2 Puffs as instructed every 4 hours asneeded for wheezing/shortness of breath. May take 2 [...] Pain - 04/04/2023 Pad (Peripheral Artery Disease) ([facility]) - 11/11/2021 Carotid Artery Stenosis - 01/23/2021 Tia (Transient Ischemic Attack) - 05/26/2020 Comment: history of TIA, remote Obesity, Class I, Bmi 30-34.9 - 07/30/2018 Ckd (Chronic Kidney Disease) Stage 3, Gfr 30-59 Ml/Min ([facility]) - 07/30/2018 Bifascicular Block - 10/11/2016 Herpes Zoster Without Complication - 02/28/2016 Mixed Simple and Mucopurulent Chronic Bronchitis ([facility]) - 01/10/2016 Mixed Hyperlipidemia - 01/10/2016 Essential Hypertension - 04/07/2015 Calculi, 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 Basilio @ [facility]- Cystopscopy, left retrograde pyelogram, left ureteroscopy, basked extraction of ureteral tissue Nonspecific Abnormal Finding in Stool Contents - 03/31/2012 Acute Gastritis Without Mention of Hemorrhage - 03/31/2012 Vitamin D Deficiency - 03/06/2012 Hyperlipidemia - 04/21/2011 Hypertension - 04/21/2011 Comment: 05/23/2023: Home BP Cuff Validated. Home BP: 143/56 p70 Office BP: 134/60 p69 S/P Unilateral Salpingo-Oophorectomy - 02/18/2011 S/P Wilfredo (Total Abdominal Hysterectomy) - 02/18/2011 Copd (Chronic [...] from today's visit and in agreement with treatmentplan. Questions answered. Agrees to call the office [...] as well as compliance with taking medications. Age- appropriate health preventative measures were discussed. Return in about 3 months (around 08/23/2023) for Follow up on chronic conditions and medications.. ROLAND Maynard documented in this encounterPike [facility] Hospital11-01-2023 History of Present illness Narrative* Alison Hi RN - 05/18/2023 4:17 PM EDT CDM Telephonic Outreach Provider Action/FYI CDM: CKD, COPD Left a message to verify symptom status, instructed to call PCP with any changes in condition?or needs CKD Jamir education sent Contacted for: Routine Telephonic Outreach Contact made with patient: No, left message. Alison Hi RN May 18, 2023 4:57 PM * Alison Hi RN - 05/17/2023 2:12 PM EDT CDM Telephonic Outreach Provider Action/FYI CDM: CKD, COPD Left a message to verify symptom status, instructed to call PCP with any changes in condition?or needs Contacted for: Routine Telephonic Outreach Contact made with patient: No, left message. Alison Hi RN May 17, 2023 2:25 PM documented in this encounterPike [facility] Hospital10-23-2023 History of Present illness Narrative* Omkar Richter RT(Jim) - 05/09/2023 11:00 AM EDT Radiology Service Progress Note PATIENT NAME: Dick Artis DATE OF SERVICE: May 09, 2023 TIME: 10:57 AM PATIENT IDENTITY VERIFICATION COMPLETED USING TWO (2) IDENTIFIERS: Name and Date of confirmedby patient verbally. FALL SCREENING: Has the patient [...] 09, 2023 10:57 AM documented in this encounterPike [facility] Hospital10-23-2023 Miscellaneous Notes* Result Encounter Note - Rosaura Suárez APRN.CNP - 05/09/2023 11:00 AM EDT Appt 05/23 documented in this encounterPike [facility] Hospital10-20-2023 Miscellaneous Notes* Telephone Encounter - Rosaura Suárez APRN.CNP - 05/06/2023 3:49 PM EDT Got it, thanks! * Telephone Encounter - Diann Nascimento LPN - 05/06/2023 2:56 PM EDT Spoke with Dr. Pemberton's office and was told that he is in network with patient's insurance and thatthe MRI has been approved to complete at [facility]. Nurse had stated that had Dr. Pemberton not been in network with patient's insurance then the MRI would have not gotten approve to be completed at [facility]. PATIENT NOTIFIED OF SAME. * Telephone Encounter - Rosaura Suárez APRN.CNP - 05/06/2023 12:14 PM EDT Can we please call [facility] and see if they want to send MRIorders for patient to [facility] to have this done or do they want us to order MRIs for back pain? If we are ordering the MRIs were they discussing just lumbar MRI or lumbar and thoracic? Rosaura Suárez APRN.CNP documented in this encounterPike [facility] Hospital10-20-2023 Instructions* Patient Instructions* Rosaura Suárez APRN.CNP - 05/06/2023 9:15 AM EDT [facility] Start back on Lasix (furosemide) as 40 mg once a day. Continue to stay off of the hydralazine. BONE MINERAL DENSITY PATIENT INSTRUCTIONS Bone mineral density testing measures the amount of calcium in certain parts of your bones. This information determines how strong your bones are. The test is used to detect osteoporosis, a disease in which the bone's mineral content and density are low, increasing a person's risk of fractures. Thelumbar spine (lower back) and the hip are [...] your usual activities immediately. documented in this encounterPike [facility] Hospital10-20-2023 History of Present illness Narrative* Rosaura Suárez APRN.CNP - 05/06/2023 9:01 AM EDT SUBJECTIVE Dick Artis is a 87 year old female here today for a check up on her medical problems. Chief Complaint Patient presents with: Recheck HPI Dick Artis is a 87 year old female. Here today for follow up on blood pressure. Had been hypotensive, home bp now returning to normal. Some slight edema in ankles. Went to see pain management. Notin network with her insurance. Needs an MRI of her back. Was planning to do an injection in her back. Trying to decide if she wants to follow with another pain management office. Recommended bone density scanning. DEXA last done 2018. Showed Osteopenia. Her medications were reviewed today [...] (2.5 ML) VIA NEBULIZER FOUR TIMES A DAYOVER 5 TO 15 MINUTES FOR WHEEZING OR SHORTNESS OF BREATH albuterol HFA (VENTOLIN HFA) 90 mcg/actuation inhaler Inhale 2 Puffs as instructed every 4 hours asneeded for wheezing/shortness of breath. May take 2 [...] Pain - 04/04/2023 Pad (Peripheral Artery Disease) ([facility]) - 11/11/2021 Carotid Artery Stenosis - 01/23/2021 Tia (Transient Ischemic Attack) - 05/26/2020 Comment: history of TIA, remote Obesity, Class I, Bmi 30-34.9 - 07/30/2018 Ckd (Chronic Kidney Disease) Stage 3, Gfr 30-59 Ml/Min ([facility]) - 07/30/2018 Bifascicular Block - 10/11/2016 Herpes Zoster Without Complication - 02/28/2016 Mixed Simple and Mucopurulent Chronic Bronchitis ([facility]) - 01/10/2016 Mixed Hyperlipidemia - 01/10/2016 Essential Hypertension - 04/07/2015 Calculi, 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 Basilio @ [facility]- Cystopscopy, left retrograde pyelogram, left ureteroscopy, basked extraction of ureteral tissue Nonspecific Abnormal Finding in Stool Contents - 03/31/2012 Acute Gastritis Without Mention of Hemorrhage - 03/31/2012 Vitamin D Deficiency - 03/06/2012 Hyperlipidemia - 04/21/2011 Hypertension - 04/21/2011 S/P Unilateral Salpingo-Oophorectomy - 02/18/2011 S/P Wilfredo (Total Abdominal Hysterectomy) - 02/18/2011 Copd (Chronic [...] diagnosis) She would like a referral for [facility], will see when she is able to schedule tosee them. In the mean time we can check with [facility] and see if they want to sendMRI orders to [facility] or have us order [...] from today's visit and in agreement with treatmentplan. Questions answered. Agrees to call the office [...] as well as compliance with taking medications. Age- appropriate health preventative measures were discussed. Return if symptoms worsen or fail to improve, for Keep next scheduled appointment.. Rosaura Suárez APRN-CORINNA documented in this encounterPike [facility] Hospital10-16-2023 Miscellaneous Notes* Telephone Encounter - Betty Duckworth RN - 05/02/2023 11:43 AM EDT Pt called and is notified of providers message and instructions. Pt voices understanding. Betty Duckworth RN * Telephone Encounter - Rosaura Suárez APRN.CNP - 05/02/2023 10:41 AM EDT She should stay off of the hydralazine until her follow up later this week, keep monitoring blood pressure and record them and bring with her to her follow up. Thanks! * Telephone Encounter - Janice Jessica RN - 05/02/2023 9:06 AM EDT Patient calls and wanted to let provider know that she did not have any increased shortness of breath or swelling after being off hydralazine this weekend. Patient reports the following blood pressures: 04/30: 119/49 05/01: 124/50 05/02: 141/61 Please review and advise, Janice Jessica RN documented in this encounterPike [facility] Hospital10-13-2023 Miscellaneous Notes* Telephone Encounter - Perlita Cedeño RN - 04/29/2023 1:55 PM EDT Pt returned call and given provider's message below with verbalized understanding. Patient agreeable. * Telephone Encounter - Diann Nascimento LPN - 04/29/2023 1:47 PM EDT LEFT MESSAGE FOR PATIENT TO CALL OFFICE. * Telephone Encounter - Rosaura Suárez APRN.CNP - 04/29/2023 12:19 PM EDT She should stop her hydralazine all together for the weekend and call with an update on blood pressure on Tuesday. Monitor for any signs of fluid increasing such as wet cough, increased swelling, increased shortness of breath ect and if noticing these she should call the nurse transmission system operator for guidance. * Telephone Encounter - Hannah Davila LPN - 04/28/2023 8:48 AM EDT Spoke with patient and no concerns of increased fluids, no swelling or weight gain. However still having issues with low BP. Patient notified of chest xray results and possible changes. Please advise. * Telephone Encounter - Rosaura Suárez APRN.CNP - 04/27/2023 5:00 PM EDT Please call patient and get an update [...] blood pressure medication instead. documented in this encounterPike [facility] Hospital10-09-2023 History of Present illness Narrative* Nilsa Palacios, RT(R) - 04/25/2023 9:20 AM EDT Radiology Service Progress Note PATIENT NAME: Dick Artis DATE OF SERVICE: April 25, 2023 TIME: 9:26 AM PATIENT IDENTITY VERIFICATION COMPLETED USING TWO (2) IDENTIFIERS: Name and Date of confirmedby patient verbally. FALL SCREENING: Has the patient had 2 falls in the last year or 1 fall with injury or currently using an Ambulatory Assistive Device (Walker, Cane, Wheelchair, Crutches, etc.)? No PATIENT GENDER DATA: Female. status: : No status: NO. PATIENT RELEVANT IMPLANT DATA REVIEWED: Yes RADIOLOGY DEPARTMENT: General X-ray: Exam(s) Completed: Chest X-Ray PERIPHERAL IV DATA: Not applicable SIGNED BY: RT Fernie(Jim) April 25, 2023 9:26 AM documented in this encounterPike [facility] Hospital10-06-2023 History of Present illness Narrative* Alison Hi RN - 04/22/2023 1:33 PM EDT CDM Telephonic Outreach Provider Action/FYI CDM: CKD, COPD Chart reviewed, Pt was seen in outside ED for LLQ pain, Lumbar sprain of back Left a message to verify symptom status, instructed to call PCP with any changes in condition?or needs Contacted for: Routine Telephonic Outreach Contact made with patient: No, left message. Alison Hi RN April 25, 2023 5:24 PM * Alison Hi RN - 04/20/2023 4:12 PM EDT CDM Telephonic Outreach Provider Action/FYI CDM: CKD, COPD Chart reviewed, Pt was seen in outside ED for LLQ pain, Lumbar sprain of back Left a message to verify symptom status, instructed to call PCP with any changes in condition?or needs Contacted for: Routine Telephonic Outreach Contact made with patient: No, left message. Alison Hi RN April 20, 2023 4:13 PM * Alison iH RN - 04/19/2023 10:49 AM EDT CDM Telephonic Outreach Provider Action/FYI CDM: CKD, COPD Chart reviewed Pt was seen in outside ED for LLQ pain, Lumbar sprain of back Left a message to verify symptom status, instructed to call PCP with any changes in condition?or needs. Contacted for: Routine Telephonic Outreach Contact made with patient: No, left message. Alison Hi RN April 19, 2023 10:50 AM documented in this encounterPike [facility] Hospital10-02-2023 Miscellaneous Notes* Telephone Encounter - Geri Marte MA - 04/18/2023 12:30 PM EDT Report received from [facility]. Will forward to Rosaura/Diann. Geri Marte MA * Telephone Encounter - Rosaura Suárez APRN.CNP - 04/18/2023 10:50 AM EDT Noted, agree, will discuss at appt tomorrow. * Telephone Encounter - Natali Mcintosh RN - 04/18/2023 8:34 AM EDT Pt calling in as she went to the ER on Tuesday for continued/worsening back and leg pain. Per pt, the ER did not do any testing and they gave her Hydrocodone/Acetaminophen 5/325 mg for pain which helps some. She is to take every 6 hrs prn. She has 4 tablets left of that. Pt has not used it since 7pm last evening. States she has been taking Tylenol too. Pt encouraged to not take Tylenol while using the Hydrocodone since that has Tylenol in it. Saw Rosaura Suárez AUDIO SPECIALIST on 03/23/23 and was prescribed Robaxin. Pt [...] that along with the Hydrocodone. Pt told thatshe can still take the Gabapentin as well. Pt given appt for tomorrow morning with Rosaura Suárez. She is instructed if she is taking the Hydrocodone, that she should not drive. She will arrange for someone to bring her. Pt states she cancelled her physical therapy appt for today because she feels itagitates her back and makes it worse. At this time, pt denies any numbness or tingling or loss of bowel or bladder control. When first asked pt her pain level, she said it was 10/10 but pt talking with nurse sneha and said she is tolerating the pain [...] she needs to call 911. Pt verbalizes unde rstanding. documented in this encounterPike [facility] Hospital09-22-2023 History of Present illness Narrative* Artie Levin, PT - 04/08/2023 2:31 PM EDT Episode Visit Count: 2 Therapist That Will Accept/Oversee The Plan Of Care: Artie Levin, PT. Start of Care Date: 04/04/23 Onset Date: 02/01/23 Plan of Care Certification Date: 04/04/23 Next Certification Due Date: 05/09/23 Patient Identified by Name and Date of : Yes REHABILITATION AND SPORTS THERAPY PHYSICAL THERAPY TREATMENT NOTE ASSESSMENT: Dick Artis tolerated the session with decreased symptoms, expected [...] Push to patient tolerance. 2: Manual Long [place] Hip Distraction to each leg: Pull to [...] 1430 Session Stop Time : 1510 Artie Levin PT documented in this encounterPike [facility] Hospital09-18-2023 History of Present illness Narrative* Artie Levin, PT - 04/04/2023 9:22 AM EDT Episode Visit Count: 1 Therapist That Will Accept/Oversee The Plan Of Care: Artie Levin PT. Start of Care Date: 04/04/23 Onset Date: 02/01/23 Plan of Care Certification Date: 04/04/23 Next Certification Due Date: 05/09/23 Patient Identified by Name and Date of : Yes REHABILITATION AND SPORTS THERAPY PHYSICAL THERAPY EVALUATION PLAN OF CARE: Assessment: Dick Artis presents with chief complaint of B low back pain with associated paresthesias wrapping around to the anterior thigh, as well as mid- back pain interferes with standing, walking, walking in the house, walking in the community, bending, physical activities, recreational activities . She presents with impairments in ADL's/IADLs, flexibility, independence in exercise, overallfunction, functional mobility, patient reported outcome measures, range of motion, strength, symptom management, and tissue tenderness. PROMIS (Patient- Reported Outcomes Measurement Information System) scores were reviewed and physical function domain identified as a rehabilitation concern. Prognosis for therapy is Good due to: current objective clinical presentation, acuteness of condition, within-session changes, Prognosis may be limited due to multiple co- morbidities . She will benefit fromskilled therapy services to meet the goals established for this plan of care as noted below. Classification Low Back Pain Subgroup Classification: Specific exercise subgroup: recommended visits 8. Specific Exercies Subgroup Classification based on: directional preference Goals for Episode of Care: created on 04/04/23 through 05/16/23 [place] in home exercise program. Patient will decrease [...] in the low back/down the legs in 4- 6 weeks. Patient. Will be able to complete prolonged standing without limitations for pain-free home management activities such as cooking and cleaning. Patient Goals: Relieve pain; be able to tolerate standing and walking. Planned Interventions, Frequency, and Duration: Current Frequency: 2x/week Duration: 4 weeks Total Number of Visits Planned: 8 Planned Treatment Interventions: Therapeutic exercise (52153), Neuromuscular re- education (80907), Manual therapy (20800), Therapeutic activities (03128), Self- correction management (26828), Patient/Family/Caregiver Education, Body Mechanics Training PLAN FOR [...] neither seem to help. Patient reports history ofPAD and only able to tolerate walking 10 minutes before she needs to sit d/t calf cramping. Radiographs show mild-moderate degeneration/arthritis changes. Patient Goals: Relieve pain; be able to tolerate standing and walking. Functional Limitations: standing, walking, walking in the house, walking in the community, bending,physical activities, recreational activities Prior Level of Function: [...] Proceed with caution due to the above (1- 2) risk factors Abdominal Aortic Aneurysm Red Flags: [...] Safety, Home exercise program, Plan of Care, Posture,Body Mechanics TREATMENT: PT Treatment Interventions: Self-Half-Way Management Evaluation Therapeutic Exercise: 1: *SKC: 2x30 [...] Push to patient tolerance. 2: Manual [place] Hip Distraction to each leg: Pull to patient tolerance. (Pt reports this manualtechnique felt good.) Skilled Intervention: Manual skills to improve joint mobility, ROM, and decrease pain. Utilized anatomy knowledge of the therapist, and assessment of patient's response to intervention. Self-Half-Way Management: 1: *Discussion and education on low [...] 927 Session Stop Time : 1010 Artie Levin PT documented in this encounterPike Community Hospital09-15-2023 Miscellaneous Notes* Telephone Encounter - Angélica Franco LPN - 04/01/2023 10:22 AM EDT RX pended. Patient phones requesting refills as follows: Requested Prescriptions Pending Prescriptions Disp Refills budesonide (PULMICORT) 0.5 mg/2 mL nebulizer solution 120 mL 2 Sig: Use 2 mL via nebulizer twice daily. INHALE 2 ML BY NEBULIZER OVER 5-15 MINUTES EVERY 12 HOURS. Please review and advise. Angélica Franco LPN * Telephone Encounter - Melissa Conde Ma - 04/01/2023 9:45 AM EDT Patient called in stating she tried to refill her budesonide and [facility] is telling her that it is on back order until the end of March. She is asking if a prescription can be sent to [facility] Rm? documented in this encounterP[facility]09-[facility]23 History of Present illness Narrative* Alison Quiroz RT(R) - 03/23/2023 9:50 AM EDT Radiology Service Progress Note PATIENT NAME: Dick Artis DATE OF SERVICE: March 23, 2023 TIME: 10:05 AM PATIENT IDENTITY VERIFICATION COMPLETED USING TWO (2) IDENTIFIERS: Name and Date of confirmedby patient verbally. FALL SCREENING: Has the patient had 2 falls in the last year or 1 fall with injury or currently using an Ambulatory Assistive Device (Walker, Cane, Wheelchair, Crutches, etc.)? No PATIENT GENDER DATA: Female. status: : No status: NO. PATIENT RELEVANT IMPLANT DATA REVIEWED: Not Applicable RADIOLOGY DEPARTMENT: General X-ray: Exam(s) Completed: Spine X-Ray(s): Thoracic and Lumbar AP / LAT / L5-S1 PERIPHERAL IV DATA: Not applicable SIGNED BY: RT Esvin(R) March 23, 2023 10:05 AM documented in this encounterPike [facility] Hospital09-06-2023 History of Present illness Narrative* Rosarua Suárez APRN.YARD CRANE OPERATOR - 03/23/2023 9:13 AM EDT SUBJECTIVE Dick Artis is a 87 year old female here today for a check up on her medical problems. Chief Complaint Patient presents with: F/U 6 months Immunizations: Flu vaccination HPI Dick Artis is a 87 year old female established patient. Presents for 6 month follow up. Currently most bothersome for her is middle and lower back pain, chiropractor not helping. Pain is constant.No prior injury. Sciatic pain down both legs. Tingling too at times. Tylenol and advil and heat andice not helping. Chiropractor gave exercises. She states [...] (2.5 ML) VIA NEBULIZER FOUR TIMES A DAYOVER 5 TO 15 MINUTES FOR WHEEZING OR SHORTNESS OF BREATH albuterol HFA (VENTOLIN HFA) 90 mcg/actuation inhaler Inhale 2 Puffs as instructed every 4 hours asneeded for wheezing/shortness of breath. May take 2 [...] 1 tab po BID for 2 days then1/2 tab po BID for 2 days then [...] ACTIVE PROBLEM LIST Pad (Peripheral Artery Disease) ([facility]) - 11/11/2021 Carotid Artery Stenosis - 01/23/2021 Tia (Transient Ischemic Attack) - 05/26/2020 Comment: history of TIA, remote Obesity, Class I, Bmi 30-34.9 - 07/30/2018 Ckd (Chronic Kidney Disease) Stage 3, Gfr 30-59 Ml/Min ([facility]) - 07/30/2018 Bifascicular Block - 10/11/2016 Herpes Zoster Without Complication - 02/28/2016 Mixed Simple and Mucopurulent Chronic Bronchitis ([facility]) - 01/10/2016 Mixed Hyperlipidemia - 01/10/2016 Essential Hypertension - 04/07/2015 Calculi, 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 Basilio @ [facility]- Cystopscopy, left retrograde pyelogram, left ureteroscopy, basked extraction of ureteral tissue Nonspecific Abnormal Finding in Stool Contents - 03/31/2012 Acute Gastritis Without Mention of Hemorrhage - 03/31/2012 Vitamin D Deficiency - 03/06/2012 Hyperlipidemia - 04/21/2011 Hypertension - 04/21/2011 S/P Unilateral Salpingo-Oophorectomy - 02/18/2011 S/P Wilfredo (Total Abdominal Hysterectomy) - 02/18/2011 Copd (Chronic [...] from today's visit and in agreement with treatmentplan. Questions answered. Agrees to call the office [...] as well as compliance with taking medications. Age- appropriate health preventative measures were discussed. Return in about 2 months (around 05/23/2023) for recheck. Rosaura Suárez APRN-CORINNA documented in this encounterPike [facility] Hospital08-25-2023 History of Present illness Narrative* Alison Hi RN - 03/11/2023 5:59 PM EDT CDM Telephonic Outreach Provider Action/FYI CDM: COPD, CKD Left a message to verify symptom status, instructed to call PCP with any changes in condition?or needs. Contacted for: Routine Telephonic Outreach Contact made with patient: No, left message. Alison Hi RN March 11, 2023 5:59 PM * Alison Hi RN - 03/09/2023 1:20 PM EDT CDM Telephonic Outreach Provider Action/FYI CDM: COPD, CKD Left a message to verify symptom status, instructed to call PCP with any changes in condition?or needs. Contacted for: Routine Telephonic Outreach Contact made with patient: No, left message. Alison Hi RN March 09, 2023 1:26 PM documented in this encounterPike [facility] Hospital08-04-2023 Miscellaneous Notes* Telephone Encounter - Angélica Franco LPN - 02/18/2023 2:15 PM EDT [facility] contacted patient and they do not have budesonide or ipratropium nebulizers in stock and they are currently on backorder. Budesonide is available at [facility] in [place] and Ipratropium is available at [facility]. Loaded scripts as call RX for 30 day supply. Angélica Franco LPN documented in this encounterPike [facility] Hospital06-27-2023 Miscellaneous Notes* Telephone Encounter - Diann Nascimento LPN - 01/11/2023 10:24 AM EDT Referral and records faxed to Dr. Clayton's office. * Telephone Encounter - Rosaura Suárez APRN.CORINNA - 01/10/2023 4:41 PM EDT Referral placed, please fax to Dr. Clayton's office. Thanks! * Telephone Encounter - Ligia Tierney LPN - 01/10/2023 11:25 AM EDT Pt calls to reports Dr. Clayton's office said they need a referral from provider faxed to them so ptcan schedule. Ligia Tierney LPN documented in this encounterPike Community Hospital06-23-2023 Miscellaneous Notes* Telephone Encounter - Katina Mendiola LPN - 01/07/2023 4:39 PM EDT Patient notified and voiced her understanding. * Telephone Encounter - Diann Nascimento LPN - 01/07/2023 4:32 PM EDT LEFT MESSAGE FOR PATIENT TO CALL OFFICE. * Telephone Encounter - Rosaura Suárez APRN.CNP - 01/07/2023 4:17 PM EDT Since swelling improved she can decrease the metolazone to every other day for the next several days and if swelling is not returning/worsening can then stop it. Agree with seeing GI for there persistent abdominal issues. * Telephone Encounter - CRAIG Schumacher - 01/07/2023 1:24 PM EDT TC to patient who verbalized understanding of providers message and states the ER only gave her [place] every 6 hours but she has run out. Patient states her swelling has went down but she is still having abdominal pain. She states a nurse from [facility] called to discuss the abdominal pain and is trying to get her in with 's office in GI. Patient inquiring if she is to continue taking the metolazone. Please advise. Thank you. CRAIG Schumacher * Telephone Encounter - Rosaura Suárez APRN.CNP - 01/07/2023 12:59 PM EDT Please call Emerson and let her know that recent labs show her kidney function has worsened with the increased water pills. It looks like she went to ER since the labs were drawn. Can we see if they madeany changes in her meds and get an update on her swelling and abdominal pain. documented in this encounterPike [facility] Hospital06-15-[address] Zuleta [facility] December 30, 2022 8:17pm Note Date/Time December 30, 2022 6:02 pm [facility] Medical Records Department [address] [place] [address] Emergency Department Summary 12/30/22 MR#: [id number] Acct: [id number] Name: DICK ARTIS Rep #:[id number] : 1935 87 From: Avel Zuleta MD PCP: Dr. Mady Dunn MD Status:RE G ER Location: ED HPI History of Present Illness Chief Complaint: Back Informant: patient and family Narrative Narrative: Patient presents with some pain in her left lower back left hip area and some left groin. It will radiate actually down to her knee on occasion. It is worsewith sitting or standing is better with laying. Eating does not seem to bother it. Bowel habits seem normal. She states it started about a month ago. She was seen here about 3 weeks ago. She was diagnosed with diverticulitis. She took the medicines but does not think it really helped a lot. No fevers or chills. No trauma. No blood in the stool. No syncope or presyncope. [facility] Medical History Bilateral carotid artery stenosis Claudication Diverticulosis Dyslipidemia Essential hypertension Limb weakness Neck and back pain PAD (peripheral artery disease) Renal cyst RLS (restless legs syndrome) Shoulder pain TIA (transient ischemic attack) Home Medications atorvastatin 40 mg tablet 40 mg PO QHS 02/22/16 [History Last Taken 05/06/17 08:00] clopidogrel 75 mg tablet 75 mg PO DAILY 02/22/16 [History Last Taken 05/06/17 08:00] multivitamin with folic acid 400 mcg tablet 1 tab PO DAILY 02/22/16 [History Last Taken 05/06/17 08:00] pramipexole 0.5 mg tablet 2 tab PO QHS 02/22/16 [History Last Taken 05/06/17 22:00] spironolactone 25 mg tablet 25 mg PO DAILY 02/22/16 [History Last Taken 05/06/17 08:00] albuterol sulfate 90 mcg/actuation aerosol inhaler 2 puff inhalation BID PRN Sob&/Or Wheezing 03/16/18 [History Last Taken Unknown] cholecalciferol (vitamin D3) 25 mcg (1,000 unit) tablet 2,500 unit PO DAILY 10/09/18 [History Last Taken Unknown] furosemide 40 mg tablet 40 mg PO DAILY #90 tabs 01/27/22 [Rx Last Taken Unknown] carvedilol 12.5 mg tablet 12.5 mg PO BID #180 tabs 02/01/22 [Rx Last Taken Unknown] albuterol sulfate 2.5 mg/3 mL (0.083 %) solution for nebulization 2.5 mg inhalation Q4H PRN 05/28/22 [History Last Taken Unknown] ipratropium 0.5 mg-albuterol 3 mg (2.5 mg base)/3 mL nebulization soln 3 ml inhalation Q6H PRN 05/28/22 [History Last Taken Unknown] trazodone 50 mg tablet 50 mg PO DAILY 05/28/22 [History Last Taken Unknown] hydralazine 25 mg tablet 25 mg PO TID #270 tabs 10/07/22 [Rx Last Taken Unknown] benzonatate 100 mg capsule 100 mg PO TID PRN cough 12/06/22 [History Last Taken Unknown] budesonide 0.5 mg/2 mL suspension for nebulization 0.25 mg inhalation TID PRN 12/06/22 [History Last Taken Unknown] losartan 100 mg-hydrochlorothiazide 25 mg tablet 1 tab PO DAILY 12/06/22 [History Last Taken Unknown] metolazone 2.5 mg tablet 2.5 mg PO Q OTHER DAY 12/06/22 [History Last Taken Unknown] ciprofloxacin HCl 500 mg tablet 500 mg PO BID #20 TABLETS 12/09/22 [Rx Last Taken Unknown] metronidazole 500 mg tablet 500 mg PO Q6H #40 tabs 12/09/22 [Rx Last Taken Unknown] hydrocodone-acetaminophen 5-325mg 5mg-325mg 1 tab PO Q6H PRN PRN Pain 3 days #10TABLETS 12/30/22 [Rx Last Taken Unknown] Allergy/AdvReac Type Severity Reaction Status Date / Time lisinopril Allergy Unknown Verified 12/30/22 17:06 aspirin AdvReac Upset Verified 12/30/22 17:06 Stomach Family History Mother Heart disease Surgical History History of basal cell carcinoma excision History of carotid angioplasty History of kidney stones History of thyroid surgery History of total hysterectomy Social History Smoking Status: Former smoker how long ago did patient quit smokin years ago alcohol intake: current alcohol intake frequency: holidays/special occasions only details: rare substance use type: does not use caffeine: Yes Type: coffee Number of servings: 1 ROS ROS ED ROS Narrative A complete review of systems was performed and is negative except as documented in the history of present illness. Some specific details below. Constitutional: No recent fevers or chills. No malaise. EYE: No visual complaints or pain. ENT: No difficulty swallowing. No swelling. No pain. CV: No chest pain or palpitations. Respiratory: No dyspnea. No hemoptysis. No difficulty taking breaths. GI: No nausea vomiting diarrhea. See history of present illness. : No frequency dysuria or hematuria. No new difficulty starting or stopping stream. Musculoskeletal: Lower back pain but mostly left buttock pain radiating around to the hip and down the leg at times. See history of present illness. Skin: No rash. Nondiaphoretic. Neuro: No weakness or numbness. Endocrine: No polyuria or polydipsia. EXAM Physical Exam Narrative Exam Narrative: CONSTITUTIONAL: Patient is nontoxic in appearance. The patient looks comfortable. HEENT: No notable trauma. Mucous membranes moist. No sinus tenderness. No indication of pain with swallowing. EYES: No conjunctival injection. No proptosis. CARDIOVASCULAR: Regular rate. Regular rhythm. No notable murmur. No JVD. RESPIRATORY: No respiratory distress. Breathing is unlabored. No wheezes. No rhonchi. No rales. No pain with a deep breath. GASTROINTESTINAL: Not distended. Bowel sounds are normal. No tenderness. No guarding. No rebound. No palpable mass. No bruit. Overall abdomen is quite benign. GENITOURINARY: No tenderness over the bladder. No CVA tenderness. MUSCULOSKELETAL: Patient has no lumbar or sacral tenderness. But she does have sciatic notch tenderness on the left. She also has some tenderness over the greater trochanter but no swelling. No distal tenderness. There is no distal swelling or asymmetry or distended veins or tenderness along the deep venous system. NEUROLOGICAL: Patient is alert and appropriate. No focal deficit noted. SKIN: No noted rashes. No diaphoresis. PSYCHIATRIC: Patient is calm. Mood is appropriate. Const Vital Signs: 12/30/22 17:06 Temperature 98 F Temperature Source Temporal Pulse Rate 69 Respiratory Rate 14 Blood Pressure 133/40 H Blood Pressure Mean 71 Pulse Ox 97 Oxygen Delivery Method Room Air MDM MDM MDM Narrative Medical decision making narrative: At this time, patient's symptoms sound very much like sciatica. She has left buttock back area pain that radiates down around to the left hip and occasionally down the leg. It is worsened by standing and sitting. She is not having GI symptoms. Because of the question of diverticulitis, we will rescan this area. I will also get hip x-ray. But I think her symptoms are most likelysciatica. Patient CBC does not show elevated white count. It is overall normal. Patient's electrolytes show a rise in her creatinine. But I also found out theydoubled her diuretics recently because she had ankle swelling. The swelling is now down. We have told her we will have her go back to her prior dose. Urinalysis is negative. My independent interpretation of her CT of the abdomen shows some diverticular disease. Final reading does show some mild findings of stranding and diverticulitis also. I talked with patient and daughter about options. She actually is just on day 2of cefdinir for this. I still think a lot of her symptoms match sciatica. But there is a component of diverticulitis. She is still eating and drinking. She is not febrile. She is not having any vomiting. She does not have a white count. I think we can try continued outpatient management for a bit. She evidently has not altered her diet at all. We talked about significant importance of transitioning to a clear liquid diet for at least a few days and then slowly increasing that. I will write for some meds for pain. If she has vomiting fevers worsening pain or other issue she may end up needing to come in the hospital. But I think we can try this as an outpatient. She is given a little bit of fluids here for the increased creatinine. She does not have a history of congestive heart failure but they are treating peripheral edema. We also discussed being cautious with pain meds and constipation. We discussed MiraLAX and [id number] laxatives if needed. But if she switches to a clear liquid diet this should hopefully not be an issue. Lab Data Attestation: I reviewed the patient's lab results. Labs: Laboratory Results - last 24 hr 12/30/22 12/30/22 12/30/22 17:44 17:44 18:04 WBC 7.6 RBC 3.92 L Hgb 12.8 Hct 38.8 MCV 99.0 MCH 32.7 H MCHC 33.0 RDW Std Deviation 55.2 H RDW Coeff of Ha 15.2 H Plt Count 220 MPV 11.4 Immature Gran % (Auto) 0.400 Neut % (Auto) 69.5 Lymph % (Auto) 18.0 L [place] % (Auto) 9.6 Eos % (Auto) 2.1 Baso % (Auto) 0.4 Absolute Neuts (auto) 5.3 Absolute Lymphs (auto) 1.37 Nucleated RBC % 0 Sodium 134 L Potassium 4.3 Chloride 96 L Carbon Dioxide 30.0 Anion Gap 8 BUN 71 H Creatinine 2.63 H Estim Creat Clear Calc 12.37 Est GFR (MDRD) Af Amer 22 L Est GFR (MDRD) Non-Af 18 L BUN/Creatinine Ratio 27.0 H Glucose 135 H Calcium 9.7 Urine Color Yellow Urine Clarity Clear Urine pH 7.0 Ur Specific [place] 1.010 Urine Protein Negative Urine Glucose (UA) Normal Urine Ketones Negative Urine Occult Blood Negative Urine Nitrite Negative Urine Bilirubin Negative Urine Urobilinogen Normal Ur Leukocyte Esterase Negative Urine RBC 0 SEEN Urine WBC 0 SEEN Ur Squamous Epith Cells 0 SEEN Urine Bacteria 0 SEEN Urine Mucus 0 SEEN Radiography Diagnostic Testing: Clinical Impression(s) from Imaging Studies Abdomen/Pelvis CT 12/30/22 18:27 IMPRESSION: Acute uncomplicated sigmoid diverticulitis. Electronically Signed: Rolly Taylor MD at 19:34 EDT , Hip/Pelvis X-Ray 12/30/22 18:49 IMPRESSION: No evidence of displaced pelvic or left hip fracture. Electronically Signed: Rolly Taylor MD at 19:06 EDT , Discharge Plan Triage Chief Complaint: Back ED Provider: Avel Zuleta Dx/Rx/DC Orders Clinical Impression: Diverticulitis, Left sided sciatica, Creatinine elevation Instructions: ED Diverticulitis, ED Sciatica Prescriptions: New hydrocodone-acetaminophen [hydrocodone-acetaminophen] 5-325 mg tablet 1 tab PO Q6H PRN PRN (Reason: Pain) 3 Days Qty: 10 0RF No Action cholecalciferol (vitamin D3) 1,000 unit tablet 2,500 unit PO DAILY albuterol sulfate 2.5 mg /3 mL (0.083 %) solution for nebulization 2.5 mg inhalation Q4H PRN ipratropium-albuterol 0.5 mg-3 mg(2.5 mg base)/3 mL solution for nebulization 3 ml inhalation Q6H PRN trazodone 50 mg tablet 50 mg PO DAILY budesonide 0.5 mg/2 mL suspension for nebulization 0.25 mg inhalation TID PRN benzonatate 100 mg capsule 100 mg PO TID PRN (Reason: cough) Label Comments: TAKE 1 TO 2 CAPSULES BY MOUTH THREE TIMES DAILY NEEDED FOR COUGH metolazone 2.5 mg tablet 2.5 mg PO Q OTHER DAY Label Comments: TAKE 1 TABLET BY MOUTH ONCE DAILY PRIOR TO LASIX DISCUSSED atorvastatin 40 MG tablet 40 mg PO QHS Label Comments: reduces cholesterol clopidogrel 75 MG tablet 75 mg PO DAILY Label Comments: blood thinner spironolactone 25 MG tablet 25 mg PO DAILY Label Comments: water pill/diuretic pramipexole 0.5 MG tablet 2 tab PO QHS Label Comments: restless leg syndrome multivitamin with folic acid 1 TABLET tablet 1 tab PO DAILY Label Comments: supplement albuterol sulfate 90 mcg/actuation HFA aerosol inhaler 2 puff INHALATION BID PRN (Reason: Sob &/Or Wheezing) Label Comments: BREATHING losartan-hydrochlorothiazide 100-25 mg tablet 1 tab PO DAILY Label Comments: 100/25MG. BLOOD PRESSURE/HEART metronidazole [metronidazole] 500 mg tablet 500 mg PO Q6H Qty: 40 0RF ciprofloxacin HCl [ciprofloxacin HCl] 500 mg tablet 500 mg PO BID Qty: 20 0RF furosemide 40 mg tablet 40 mg PO DAILY Qty: 90 3RF carvedilol 12.5 mg tablet 12.5 mg PO BID Qty: 180 4RF Rx Instructions: must administer with a meal/food hydralazine 25 mg tablet 25 mg PO TID Qty: 270 3RF Primary Care Provider: Mady Dunn Referrals: Mady Dunn MD [Primary Care Provider] - 3-5 Days Disposition Disposition: Home, Self Care What to do if you have Problems For any increased pain, shortness of breath, bleeding, nausea or vomiting, chestpain, or any unexpected problems, contact your Primary Care Provider. Call [facility] ([phone]) or report to the closest Emergency Room. Call 911 if necessary. 12/30/222016 <Electronically signed by Avel Zuleta MD> Cosigner Signature (if applicable): CC: Dr. Mady Dunn MD ~ Signed [facility] Work Phone: [phone] 737-157306-15-2023 Miscellaneous Notes* Telephone Encounter - Verona Wallace LPN - 12/30/2022 3:53 PM EDT Patient notified. Verbalized understanding. * Telephone Encounter - Diana Solares APRN.CNP - 12/30/2022 3:29 PM EDT If pain is severe pain needs emergently seen. Not only was she treated from diverticulitis recentlyshe had a large kidney stone in her left kidney. This pain may be related to that as well, or continued diverticulitis, or other cause. Thank you Diana Solares APRN.CORINNA * Telephone Encounter - Dayan Ibarra LPN - 12/30/2022 9:58 AM EDT Pt called and she was seen in the office on 12-27-22 for diverticulitis and pt was put on ATB. Pt reports the pain is severe on left side.. Pain scale as a 10. Denies nausea, fever, vomiting or diarrhea. Pt urinating fine last time was 10 minutes ago. Pt calling to see what you would advise her to do. Routing message to Doctor transmission system operator. Dayan Ibarra LPN documented in this encounterPike [facility] Hospital06-15-2023 History of Present illness Narrative* Alison Hi RN - 12/30/2022 2:03 PM EDT CDM Telephonic Outreach Provider Action/FYI CDM: COPD Called Pt left a message, Instructed to call PCP with any symptom or condition changes. Contacted for: Routine Telephonic Outreach Contact made with patient: No, left message. Alison Hi RN December 30, 2022 2:10 PM * Alison Hi RN - 12/28/2022 1:11 PM EDT CDM Telephonic Outreach Provider Action/FYI CDM: COPD Called Pt left a message, Instructed to call PCP with any symptom or condition changes. Contacted for: Routine Telephonic Outreach Contact made with patient: No, left message. Alison Hi RN December 28, 2022 1:12 PM documented in this encounterPike Community Hospital06-07-2023 Miscellaneous Notes* Telephone Encounter - Rosaura Suárez APRN.CNP - 12/22/2022 9:12 AM EDT See separate phone encounter addressing this. documented in this encounterPike Community Hospital06-07-2023 Miscellaneous Notes* Telephone Encounter - Eboni Cervantes - 12/22/2022 8:17 AM EDT Patient has been identified by name and [...] Thank you. Eboni Cervantes documented in this encounterPike Community Hospital05-31-2023 Miscellaneous Notes* Telephone Encounter - Spencer Boone MD - 12/15/2022 6:36 AM EDT I received an encounter from her primary care physician that patient was in the emergency room and had a CT scan done at outside hospital. I reviewed the report. Overall kidneys appear stable Cancel upcoming ultrasound and appointment Reschedule for 9 months with ultrasound prior with me documented in this encounterPike Community Hospital05-05-2023 History of Present illness Narrative* Alison Hi RN - 11/19/2022 2:00 PM EDT CDM Telephonic Outreach Provider Action/FYI CDM: CKD, COPD 2nd Call to Pt, left a message instructed to call PCP with any changes in condition or needs. Contacted for: Routine Telephonic Outreach Contact made with patient: No, left message. Alison Hi RN November 19, 2022 2:00 PM * Alison Hi RN - 11/18/2022 9:20 AM EDT CDM Telephonic Outreach Provider Action/FYI CDM: CKD, COPD Called Pt, left a message instructed to call PCP with any changes in condition or needs. Contacted for: Routine Telephonic Outreach Contact made with patient: No, left message. Alison Hi RN November 18, 2022 9:20 AM documented in this encounterPike Community Hospital04-15-2023 Instructions* Patient Instructions* Diana Meehan APRN.[facility] - 10/30/2022 9:01 AM EDT Understanding COPD What is COPD? COPD stands for chronic obstructive pulmonary (lung) disease. COPD is a term applied to a family ofdiseases that includes emphysema, chronic bronchitis, and emphysema [...] might develop an enlarged heart (cor pulmonale). Thiscondition weakens the heart and causes increased shortness [...] the irritation. The cilia are then unable tohelp clean mucus from the airways. Bronchitis is [...] blood and carbon dioxide cannot be taken fromthe blood to be exhaled. How is COPD [...] be evaluated for lung volume reduction surgery orlung transplantation. You might also be eligible to [...] to and follow your treatment plan. Copyright [id number] The [facility] [place]. All rights reserved documented in this encounterPike Community Hospital04-15-2023 History of Present illness Narrative* Omkar Richter RT(R) - 10/30/2022 8:30 AM EDT Radiology Service Progress Note PATIENT NAME: Dick Artis DATE OF SERVICE: October 30, 2022 TIME: 8:39 AM PATIENT IDENTITY VERIFICATION COMPLETED USING TWO (2) IDENTIFIERS: Name and Date of confirmedby patient verbally. FALL SCREENING: Has the patient had 2 falls in the last year or 1 fall with injury or currently using an Ambulatory Assistive Device (Walker, Cane, Wheelchair, Crutches, etc.)? No PATIENT GENDER DATA: Female. status: : No status: NO. PATIENT RELEVANT IMPLANT DATA REVIEWED: Not Applicable RADIOLOGY DEPARTMENT: General X-ray: Exam(s) Completed: Chest X-Ray PERIPHERAL IV DATA: Not applicable SIGNED BY: RT Jitendra(R) October 30, 2022 8:39 AM documented in this encounterP[facility]04-[facility]23 History of Present illness Narrative* Diana Meehan APRN.YARD CRANE OPERATOR - 10/30/2022 8:27 AM EDT This note was created using NoteWriter. Subjective Dick Artis is a 87 year old female. 87 [...] history is provided by the patient. No professor of languages was used. Cough This is a new [...] cough syrup for the symptoms. The treatment providedno relief. Smoker: former. Her past medical history is significant for bronchitis and COPD. Her past medical history does not include pneumonia, bronchiectasis, emphysema or asthma. PAST MEDICAL HISTORY Diagnosis Date Basal cell carcinoma Carotid stenosis CEA left CKD (chronic kidney disease) stage 3, GFR 30-59 ml/min ([facility]) 07/30/2018 COPD (chronic obstructive pulmonary disease) ([facility]) Diverticulosis of colon (without mention of [...] HYSTERECT W/WO RMVL TUBE OVARY 05/18/1971 Hysterectomy, WILFREDO, LSO carcinoma insitu ALLERGIES Amlodipine, Aspirin, Lisinopril, and Requip [Ropinirole] MEDICATIONS doxycycline monohydrate 100 mg tablet Take 1 tablet by mouth twice daily for 7 days. methylPREDNISolone (MEDROL, MARGE,) 4 mg Dose-Pack Follow dosing instructions, take with food. albuterol HFA (VENTOLIN HFA) 90 mcg/actuation inhaler Inhale 2 Puffs as instructed every 4 hours asneeded for wheezing/shortness of breath. May take 2 puffs prior to exercise benzonatate (TESSALON PERLES) 100 mg capsule Take 1-2 capsules by mouth three times daily as neededfor cough. spironolactone (ALDACTONE) 25 mg tablet Take [...] 1 tab po BID for 2 days then1/2 tab po BID for 2 days then 1/2 tab daily for 2 days then stop (Patient not taking: No sig reported) multivitamin with folic acid (THERA, ONE DAILY) 400 mcg Take by mouth. ipratropium (ATROVENT) 0.02 % nebulizer solution USE 1 VIAL (2.5 ML) VIA NEBULIZER FOUR TIMES A DAYOVER 5 TO 15 MINUTES FOR WHEEZING OR [...] inhaler PRN Follow up with PCP Diana Meehan APRN.YARD CRANE OPERATOR documented in this encounterPike [facility]04-14-[facility]23 History of Present illness Narrative* Alison Hi RN - 10/29/2022 10:00 AM EDT CDM Telephonic Outreach Provider Action/FYI CDM: COPD [...] more often than normal? No Based on credit assessment analyst, the following disposition is advised: Symptoms present, not severe. Routed to: No Action Needed JAMIR Education Provided this Outreach: No Alison Hi RN October 29, 2022 10:16 AM documented in this encounterPike [facility]04-05-2023 History of Present illness Narrative* Alison Hi RN - 10/20/2022 12:41 PM EDT IINSIGHT CDM TELEPHONIC OUTREACH Provider Action/FYI: CDM: CKD, COPD Left a message to verify symptom status, instructed to call PCP with any changes in condition or needs. Contact made with patient: No - Left message Guy my name is Alison Hi RN your Automatic Dispenser Mechanic [facility] I am callingtoday for your bi-weekly check in. I am sorry I missed your call. I will reach out to you again tomorrow. (if the third call I will reach out to you again next week) Enter next patient outreach date for the following business day using the Track Pt Outreach. End outreach. Alison Hi RN October 20, 2022 12:41 PM * Alison Hi RN - 10/19/2022 2:58 PM EDT INSIGHT CDM TELEPHONIC OUTREACH Provider Action/FYI: CDM: CKD, COPD Left a message to verify symptom status, instructed to call PCP with any changes in condition or needs. Contact made with patient: No - Left message Guy my name is Alison Hi RN your Automatic Dispenser Mechanic [facility] I am callingtoday for your bi-weekly check in. I am sorry I missed your call. I will reach out to you again tomorrow. (if the third call I will reach out to you again next week) Enter next patient outreach date for the following business day using the Track Pt Outreach. End outreach. Ailson Hi RN October 19, 2022 2:58 PM documented in this encounterPike [facility]04-03-2023 Miscellaneous Notes* Telephone Encounter - Angélica Franco LPN - 10/18/2022 8:34 AM EDT Patient phones requesting refills as follows: Requested Prescriptions Pending Prescriptions Disp Refills albuterol HFA (VENTOLIN HFA) 90 mcg/actuation inhaler 54 g 3 Sig: Inhale 2 Puffs as instructed every 4 hours as needed for wheezing/shortness of breath. May take 2 puffs prior to exercise Please review and advise. Angélica Franco LPN documented in this encounterPike [facility] Hospital03-20-2023 Miscellaneous Notes* Telephone Encounter - Rosaura Suárez APRN.CORINNA - 10/04/2022 9:23 AM EDT Called and spoke to patient directly, we [...] post nasal drainage, not using Flonase. Advised tryFlonase before bed and can also try an oral antihistamine like Claritin or zyrtec if still persistent and then if not improving call in. * Telephone Encounter - Virgie Herbert RN - 10/01/2022 4:13 PM EDT Patient notified of message below. Patient asking [...] patient to write orders down. Thank you. * Telephone Encounter - Rosaura Suárez APRN.CNP - 10/01/2022 4:02 PM EDT I would recommend making the change of taking the zaroxolyn daily so she should be taking every dayzaroxolyn and then 5-10 minutes later her furosemide and see how increasing the zaroxolyn dose fromthree times a week to daily impacts her swelling. If swelling is persistent despite that change then she should add the second dose of furosemide at noon for x1 week and update us. * Telephone Encounter - Virgie Herbert RN - 10/01/2022 10:19 AM EDT Patient calling to give Dr. Dunn an [...] Please advise. Thank you. documented in this encounterPike [facility] Hospital03-13-2023 Miscellaneous Notes* Telephone Encounter - Dayan Ibarra LPN - 09/27/2022 4:55 PM EDT Spoke with pt and information listed below given. Pt verbalizes understanding. Pt will call to schedule apt if the medication does not help. Dayan Ibarra LPN * Telephone Encounter - Maddison Renteria APRN.CNS - 09/27/2022 10:57 AM EDT Rx benzonatate sent. Offer recheck if needed * Telephone Encounter - Ligia Tierney LPN - 09/27/2022 9:27 AM EDT Pt calls today to report she thought pcp was going to send a rx for benzonate for her cough to [facility] but [facility] does not have rx. In TE from 09/24 pt requested rx stating she still has a cough. 7:28 AM I am awaken each morning around 3-4 am with harsh cough, I cough clear flem for approximately half hour, My ears are clear now, still puffy eyes. Taking metolazone, legs still swollen and weight up 2pounds this am. Still taking benzonatate , only a few left Please advise pt. Dayan Ibarra LPN Please review and advise. Ligia Tierney LPN documented in this encounterPike [facility] Hospital03-13-2023 Miscellaneous Notes* Telephone Encounter - Diann Nascimento LPN - 09/27/2022 11:01 AM EDT Spoke with an [facility] clinical pharmacy specialist by the name of Faye Rowe. She requested a 90 day supply and approval was given. PATIENT NOTIFIED OF SAME. * Telephone Encounter - Mady Dunn MD - 09/27/2022 8:46 AM EDT Does [facility] need called or was there a fax to address from them? * Telephone Encounter - Betty Duckworth RN - 09/25/2022 9:00 AM EST Pt called and is notified of providers results and instructions. Pt voices understanding. She reports [facility] will not [facility] it until they receive a review from provider. Betty Duckworth RN * Telephone Encounter - Mady Dunn MD - 09/24/2022 6:48 PM EST The following approved medication requests have been [...] [facility] regarding reason would not fill RX? * Telephone Encounter - Giselle Adame LPN - 09/24/2022 3:39 PM EST Patient calling checking status of my chart message. Patient said she uses [facility] if needed. Patient also said [facility] will not fill Spironolactone rx needs office to call about the rx, not sure what issue? She said [facility] has tried to contact the office? Please advise * Telephone Encounter - Dayan Ibarra LPN - 09/24/2022 8:06 AM EST Images from the original note were not included. Pt called to check status of the MyChart message she sent yesterday 09-23-22. See below. 7:28 AM I am awaken each morning around 3-4 am with harsh cough, I cough clear flem for approximately half hour, My ears are clear now, still puffy eyes. Taking metolazone, legs still swollen and weight up 2pounds this am. Still taking benzonatate , only a few left Please advise pt. Dayan Ibarra LPN documented in this encounterPike [facility] Hospital03-03-2023 Instructions* Patient Instructions* Mady Dunn MD - 09/17/2022 3:36 PM [...] socks that are more elastic--diabetic socks, Dr. Nenita's, as wel las some [employer] brands or [employer]. Try propping feet up for half hour after taking water pills and see if that helps mobilize fluid. Check labs on way out then in 2 weeks or so. documented in this encounterPike [facility] Hospital03-03-2023 History of Present illness Narrative* Mady Dunn MD - 09/17/2022 2:55 PM EST This note was created using [email or web address]. Subjective Dick Artis is a 86 year old female. Patient presents with: F/U 6 months SUBJECTIVE: Dick Artis is a 86 year old year old lady here today for 6 month follow up appointment for review of medical conditions. URI symptoms noted. Was treated with Doxy, prednisone, tessalon perles for COPD exacerbation but nowith sinus and ear symptoms. Also bowel issue but before meds started. Lasix was given and doubled up by siding coreboard inspector. 40 mg twice daily (AM around 5:30 to 6, then noon).Swelling no better. Was for just 4 days--this was 2 weeks ago. Wears support sock that got from [employer].--not really right. Saw Dr. Doan last time February 2022. Recommended leg pumps but could not afford out of pocket expense. To treat secondary lymphedema. Working with insurance and director social to get try to get pump through [facility]. Depression Screening 07/07/2018 12/23/2020 01/25/2022 09/17/2022 PHQ-2 Score 0 0 4 0 PHQ-9 Score - - 7 - STEVEN-2 Total Score - - - - Depression screening tool completed and reviewed. Based on score and interview, patient is not at risk for depression. Screening tool discussed with patient, and I recommended no further interventionat this time. PAST MEDICAL HISTORY Diagnosis Date Basal cell carcinoma Carotid stenosis CEA left CKD (chronic kidney disease) stage 3, GFR 30-59 ml/min (HCC) 07/30/2018 COPD (chronic obstructive pulmonary disease) (HCC) Diverticulosis of colon (without mention of hemorrhage) Diverticulosis Hypertension Rolly Smith MD Osteoporosis, unspecified Personal history of colonic polyps Colon polyps Restless legs syndrome (RLS) TIA (transient ischemic attack) 2009 Plavix Current Outpatient Medications Medication Sig losartan-hydroCHLOROthiazide [...] capsules by mouth three times daily as neededfor cough. clopidogrel (PLAVIX) 75 mg tablet Take [...] 2 Puffs as instructed every 4 hours asneeded for wheezing/shortness of breath. May take 2 puffs prior to exercise multivitamin with folic acid (THERA, ONE DAILY) 400 mcg Take by mouth. ipratropium (ATROVENT) 0.02 % nebulizer solution USE 1 VIAL (2.5 ML) VIA NEBULIZER FOUR TIMES A DAYOVER 5 TO 15 MINUTES FOR WHEEZING OR SHORTNESS OF BREATH spironolactone (ALDACTONE) 25 mg tablet Take 1 tablet by mouth once daily. Take one additional 25 mg spironolactone for SBP greater than 150 furosemide (LASIX) 40 mg tablet Take 40 mg by mouth once daily. carvedilol (COREG) 6.25 mg tablet Take 2 tablets by mouth twice daily. (Dr. mSith adjusting) Cholecalciferol, Vitamin D3, 1,000 unit cap Take 1 capsule by mouth once daily. predniSONE (DELTASONE) 20 mg tablet Take two daily for 5 days. hydrALAZINE (APRESOLINE) 25 mg tablet Take 25 mg by mouth three times daily. predniSONE (DELTASONE) 10 mg tablet Take 2 tabs po BID for 2 days then 1 tab po BID for 2 days then1/2 tab po BID for 2 days then [...] hard stools, sometimes large. No BRBPR. Started amonth or so ago. Genitourinary: Negative for difficulty [...] Chronic obstructive pulmonary disease, unspecified COPD type ([facility]) J44.9 exacerbation resolved 2. Eustachian tube dysfunction, bilateral H69.83 left is worse; will treat with nasal steroid 3. Stage 1 mild COPD by GOLD classification ([facility]) J44.9 albuterol (PROVENTIL) 2.5 mg /3 mL (0.083 %) nebulizer solution 4. COPD with exacerbation ([facility]) J44.1 albuterol (PROVENTIL) 2.5 mg /3 mL (0.083 %) nebulizer solution 5. Vitamin D deficiency E55.9 VITAMIN D 25 HYDROXY 6. Stage 3a chronic kidney disease (HCC) N18.31 COMP METABOLIC PANEL BASIC METABOLIC PNL [...] the date of the service which included [id number] patient care, completing clinical documentation, obtaining and/or reviewing separately obtained history, performing a medically appropriate examination, counseling and educating the patient/family/caregiver, and ordering medications, tests, or procedures. Mady Dunn MD documented in this encounterPike [facility] Hospital02-20-2023 Miscellaneous Notes* Telephone Encounter - Hannah Monae SAMI - 09/06/2022 10:23 AM EST Patient has been identified by name and [...] you. Hannah Monae LPN documented in this encounterPike [facility] Hospital02-17-2023 History of Present illness Narrative* Maddison Renteria, CENTRAL SUPPLY TECH.PRODUCE ASSISTANT - 09/03/2022 2:46 PM EST SUBJECTIVE: SHINGRIX VACCINE(1 of 2) Never done COVID-19 VACCINE(3 - Booster for Moderna series) due on 11/09/2020 ADVANCE DIRECTIVE DISCUSSION Never done DEPRESSION ASSESSMENT Never done HPI Dick Artis is a 86 year old female. PMH signficiant for ACTIVE PROBLEM LIST Peripheral Enthesopathies and Allied Syndromes Osteoporosis, Unspecified restless leg syndrome Diverticulosis of Colon (Without Mention of Hemorrhage) Personal History of Colonic Polyps Restless Legs Syndrome (Rls) Brachial Neuritis Or Radiculitis NOS Htn (Hypertension), Benign Hypokalemia Copd (Chronic Obstructive Pulmonary Disease) ([facility]) S/P Unilateral Salpingo-Oophorectomy S/P Wilfredo (Total Abdominal Hysterectomy) Hyperlipidemia Hypertension Vitamin D Deficiency Nonspecific Abnormal Finding in Stool Contents Acute Gastritis Without Mention of Hemorrhage Calculi, Ureter Essential Hypertension Mixed Simple and Mucopurulent Chronic Bronchitis ([facility]) Mixed Hyperlipidemia Herpes Zoster Without Complication Bifascicular Block Obesity, Class I, Bmi 30-34.9 Ckd (Chronic Kidney Disease) Stage 3, Gfr 30-59 Ml/Min ([facility]) Tia (Transient Ischemic Attack) Carotid Artery Stenosis Pad (Peripheral Artery Disease) ([facility]) Vascular: Dr. Doan. Manager Logistic: Dr.[facility]. Pulmonology: Ana Hernandez / Dr Delvalle Urologist: Spencer Boone MD for incidentally discovered right renal mass 11/2021. Since last seen by me she was seen by Dr. Alina Delvalle July 29, 2022 and treated with doxycycline and prednisone taper for COPD exacerbation. Notes she has had cough. wheezing and increased SOBOE and increased leg swelling for the last week.Weight is stable. 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 Cough: is keeping her awake Sputum:limited production SOBOE: increased from baseline PND: no Notes using maintenance inhaler, albuterol inhaler but has not been able to get nebulizer solution through her mail order pharmacy x 3 days. She notes chronic leg swelling, has seen Dr. Doan for this. Considering compression pumps. States has not had insurance cover this; has a senior care assistant looking into it for her. Notes trazodone [...] 2 Puffs as instructed every 4 hours asneeded for wheezing/shortness of breath. May take 2 puffs prior to exercise multivitamin with folic acid (THERA, ONE DAILY) 400 mcg Take by mouth. ipratropium (ATROVENT) 0.02 % nebulizer solution USE 1 VIAL (2.5 ML) VIA NEBULIZER FOUR TIMES A DAYOVER 5 TO 15 MINUTES FOR WHEEZING OR [...] capsules by mouth three times daily as neededfor cough. predniSONE (DELTASONE) 10 mg tablet Take 2 tabs po BID for 2 days then 1 tab po BID for 2 days then1/2 tab po BID for 2 days then 1/2 tab daily for 2 days then stop (Patient not taking: No sig reported) No current facility-administered medications for this visit. PAST MEDICAL HISTORY Diagnosis Date Basal cell carcinoma Carotid stenosis CEA left CKD (chronic kidney disease) stage 3, GFR 30-59 ml/min (HCC) 07/30/2018 COPD (chronic obstructive pulmonary disease) (HCC) Diverticulosis of colon (without mention of hemorrhage) [...] mg/dL Final ASSESSMENT/PLAN: 1. COPD with exacerbation ([facility]) - ICD9: 491.21, ICD10: J44.1 (primary [...] - TRAZODONE 100 MG TABLET Follow-up with [facility], may need a sooner appointment. Keep routine follow up with MD Maddison Peters APRN.CNS Medical Decision Making: Problems: Moderate: Acute illness with systemic symptoms Risk: Moderate: Drug management Medical Decision Making Level: 4 - Moderate documented in this encounterPike [facility] Hospital02-17-2023 Miscellaneous Notes* Telephone Encounter - Maddison Renteria APRN.CNS - 09/03/2022 1:14 PM EST If cardiology is managing her diuretics she should see them as well as or instead of with me today. * Telephone Encounter - Helena Quevedo RN - 09/03/2022 12:52 PM EST Patient had an increased weight gain at [...] scheduled. Helena Quevedo RN documented in this encounterPike Community Hospital02-13-2023 Miscellaneous Notes* Telephone Encounter - Angélica Franco LPN - 08/30/2022 8:48 AM EST Spoke with patient. C/O nasal congestion, runny nose with clear to white drainage with PND x5-6 days. Denies headache, fever, or sore throat. She has a deep, non productive cough and rattling in the chest. She does have an at home COVID test available and has not used- she will test and report back if itis positive, although she is aware she is out of the window for Paxlovid. [facility] in [place] is preferred pharmacy. Angélica Franco LPN documented in this encounterPike [facility] Hospital01-25-2023 Miscellaneous Notes* Telephone Encounter - Angélica Franco LPN - 08/11/2022 8:30 AM EST See telephone encounter with EB Angélica Franco LPN documented in this encounterPike Community Hospital01-23-2023 Miscellaneous Notes* Telephone Encounter - Alina Delvalle MD - 08/09/2022 5:17 PM EST Spoke with Emerson regarding the results of her chest CT which shows more dense atelectasis in the right lung. No obvious endobronchial abnormality. Will hold on bronchoscopy. Additionally, she has a small 4 to 5 mm lung nodule that will require repeat CT in 1 year. documented in this encounterPike Community Hospital01-20-2023 History of Present illness Narrative* Alison Hi RN - 08/06/2022 1:02 PM EST INSIGHT CDM TELEPHONIC OUTREACH Provider Action/FYI: CDM: CKD, COPD 2nd Call, left a message to verify symptom status and needs. Instructed to call PCP with any symptom or condition changes Contact made with patient: No - Left message Hello my name is Alison Hi RN your Automatic Dispenser Mechanic [facility] I am callingtoday for your bi-weekly check in. I am sorry I missed your call. I will reach out to you again tomorrow. (if the third call I will reach out to you again next week) Enter next patient outreach date for the following business day using the Track Pt Outreach. End outreach. Alison Hi RN August 06, 2022 1:02 PM * Alison Hi RN - 08/04/2022 11:28 AM EST INSIGHT CDM TELEPHONIC OUTREACH Provider Action/FYI: CDM: CKD, COPD Called Pt left a message to verify symptom status and needs. Instructed to call PCP with any symptom or condition changes Contact made with patient: No - Left message Hello my name is Alison Hi RN your Automatic Dispenser Mechanic [facility] I am callingtoday for your bi-weekly check in. I am sorry I missed your call. I will reach out to you again tomorrow. (if the third call I will reach out to you again next week) Enter next patient outreach date for the following business day using the Track Pt Outreach. End outreach. Alison Hi RN August 04, 2022 11:28 AM documented in this encounterPike Community Hospital01-18-2023 History of Present illness Narrative* Tiera Gutierrez RT(R) - 08/04/2022 8:40 AM EST Radiology Service Progress Note PATIENT NAME: Dick Artis DATE OF SERVICE: August 04, 2022 TIME: 1:36 PM PATIENT IDENTITY VERIFICATION COMPLETED USING TWO (2) IDENTIFIERS: Name and Date of confirmedby patient verbally. FALL SCREENING: Has the patient [...] 04, 2022 1:36 PM documented in this encounterPike Community Hospital01-16-2023 Miscellaneous Notes* Telephone Encounter - Hannah Monae LPN - 08/02/2022 1:37 PM EST Patient has been identified by name and [...] you. Hannah Monae LPN documented in this encounterPike [facility] Hospital01-12-2023 History of Present illness Narrative* Alina Delvalle MD - 07/29/2022 10:00 AM EST Images from the original note were not included. . Respiratory [place] Note Patient name: Dick Artis PCP: Mady Dunn MD CC: Follow-up testing HPI: Dick Artis 86 year old female former [id number] smoker, quitting in 2017 with PMH significant for CKD 3, HTN, TIA, PAD status post left CEA, COPD recently establishing with me, former patient of . At [facility], pulmonary function tests pertinent for progressive restrictive ventilatorydefect, with last FVC 1.07 L 47%. Ordered [...] DATE OF EXAM: May 17 2022 9:33AM [facility] 0541 - CT CHEST WO IVCON / [...] kidney disease) stage 3, GFR 30-59 ml/min ([facility]) 07/30/2018 COPD (chronic obstructive pulmonary disease) ([facility]) Diverticulosis of colon (without mention of [...] 2 Puffs as instructed every 4 hours asneeded for wheezing/shortness of breath. May take 2 puffs prior to exercise traZODone (DESYREL) 50 mg tablet Take 1 tablet by mouth daily at bedtime. for sleep multivitamin with folic acid (THERA, ONE DAILY) 400 mcg Take by mouth. ipratropium (ATROVENT) 0.02 % nebulizer solution USE 1 VIAL (2.5 ML) VIA NEBULIZER FOUR TIMES A DAYOVER 5 TO 15 MINUTES FOR WHEEZING OR [...] 1 tab po BID for 2 days then1/2 tab po BID for 2 days then [...] age > 80 4. Atelectasis -See #2 Alina Delvalle MD [facility] documented in this encounterPike Community Hospital01-09-2023 Miscellaneous Notes* Telephone Encounter - Lamar Hudson SAMI - 07/26/2022 10:03 AM EST Patient has been identified by name and [...] Not applicable Please advise. Thank you. Lamar Rodriguesaline GALLARDO documented in this encounterPike Community Hospital12-13-2022 History of Present illness Narrative* Alison Hi RN - 06/29/2022 10:24 AM EST INSIGHT CDM TELEPHONIC OUTREACH Provider Action/FYI: CDM: CKD/ COPD 2nd call left a message to verify symptoms or needs. Instructed to call PCP with any changes in condition Contact made with patient: No - Left message Hello my name is Alison Hi RN your Automatic Dispenser Mechanic [facility] I am callingtoday for your bi-weekly check in. I am sorry I missed your call. I will reach out to you again tomorrow. (if the third call I will reach out to you again next week) Enter next patient outreach date for the following business day using the Track Pt Outreach. End outreach. Alison Hi RN June 29, 2022 5:30 PM * Alison Hi RN - 06/28/2022 11:19 AM EST INSIGHT CDM TELEPHONIC OUTREACH Provider Action/FYI: CDM: COPD/ CKD Left a message to verify symptom status and needs. Contact made with patient: No - Left message Guy my name is Alison Hi RN your Automatic Dispenser Mechanic [facility] I am callingtoday for your bi-weekly check in. I am sorry I missed your call. I will reach out to you again tomorrow. (if the third call I will reach out to you again next week) Enter next patient outreach date for the following business day using the Track Pt Outreach. End outreach. Alison Hi RN June 28, 2022 11:19 AM documented in this encounterPike [facility] Hospital11-30-2022 History of Present illness Narrative* Rosaura Suárez APRN.CORINNA - 06/16/2022 11:08 AM EST SUBJECTIVE Dick Artis is a 86 year old female here today for acute concerns. Chief Complaint Patient presents with: Cough: with wheezing for about 2 days HPI Dick Artis is an 86 year old female who presents with an illness characterized by productive cough with sputum described as yellow, thick, and wheezing. Symptoms began 3 day(s) ago and are constant since that time, not improving. OTC meds/remedies that patient has tried: coricidin and tea with ho brionna. She has a history of COPD, no [...] 2 Puffs as instructed every 4 hours asneeded for wheezing/shortness of breath. May take 2 puffs prior to exercise traZODone (DESYREL) 50 mg tablet Take 1 tablet by mouth daily at bedtime. for sleep multivitamin with folic acid (THERA, ONE DAILY) 400 mcg Take by mouth. ipratropium (ATROVENT) 0.02 % nebulizer solution USE 1 VIAL (2.5 ML) VIA NEBULIZER FOUR TIMES A DAYOVER 5 TO 15 MINUTES FOR WHEEZING OR [...] 1 tab po BID for 2 days then1/2 tab po BID for 2 days then 1/2 tab daily for 2 days then stop No current facility-administered medications for this visit. ALLERGIES Allergen Reactions Amlodipine Swelling Lower leg edema. Aspirin Unknown Lisinopril Cough Requip [Ropinirole] Other: See Comments Very anxious ACTIVE PROBLEM LIST Pad (Peripheral Artery Disease) ([facility]) - 11/11/2021 Carotid Artery Stenosis - 01/23/2021 Tia (Transient Ischemic Attack) - 05/26/2020 Comment: history of TIA, remote Obesity, Class I, Bmi 30-34.9 - 07/30/2018 Ckd (Chronic Kidney Disease) Stage 3, Gfr 30-59 Ml/Min ([facility]) - 07/30/2018 Bifascicular Block - 10/11/2016 Herpes Zoster Without Complication - 02/28/2016 Mixed Simple and Mucopurulent Chronic Bronchitis ([facility]) - 01/10/2016 Mixed Hyperlipidemia - 01/10/2016 Essential Hypertension - 04/07/2015 Calculi, 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 Basilio @ [facility]- Cystopscopy, left retrograde pyelogram, left ureteroscopy, basked extraction of ureteral tissue Nonspecific Abnormal Finding in Stool Contents - 03/31/2012 Acute Gastritis Without Mention of Hemorrhage - 03/31/2012 Vitamin D Deficiency - 03/06/2012 Hyperlipidemia - 04/21/2011 Hypertension - 04/21/2011 S/P Unilateral Salpingo-Oophorectomy - 02/18/2011 S/P Wilfredo (Total Abdominal Hysterectomy) - 02/18/2011 Copd (Chronic Obstructive Pulmonary Disease) ([facility]) - 08/24/2010 Htn (Hypertension), Benign - 08/12/2009 [...] parts of this document were created using [employer] and therefore may contain grammatical errors. Patient verbalizes understanding of instructions from today's visit and in agreement with treatmentplan. Questions answered. Agrees to call the office if questions, concerns or issues with acute symptoms not improving or if they worsen. Return if symptoms worsen or fail to improve, for Keep next scheduled appointment.. Rosaura Suárez APRN-CORINNA documented in this encounterPike [facility] Hospital11-30-2022 Miscellaneous Notes* Telephone Encounter - Diann Nascimento LPN - 06/16/2022 9:57 AM EST Patient scheduled with Rosaura Suárez 06/16/22 to evaluate cough. * Telephone Encounter - Angélica Franco LPN - 06/16/2022 8:40 AM EST Spoke to patient. She complains of some nasal congestion and clear nasal drainage. I am coughing all night long. Denies fever, myalgias or sore throat. She does not have a home covid test available. No provider in office today in pulmonary, but advised patient I would route to PCPs office to see if they advise visit vs. express care. Angélica Franco LPN * Telephone Encounter - Tiera Doyle LPN - 06/16/2022 8:07 AM EST Patient called. Verified name and date of . Patient would like to report having a hoarse coughwith some yellow phlegm, denies fever- symptoms worse at night x two days. Please review and advise. Tiera Doyle LPN documented in this encounterPike [facility] Hospital11-11-2022 History of Present illness Narrative* Alison Hi RN - 05/28/2022 4:02 PM EST [facility] TELEPHONIC OUTREACH Provider Action/FYI: Called Pt, left a message to verify COPD/ CKD symptom status and needs Contact made with patient: No - Left message Hello my name is Alison Hi RN your Automatic Dispenser Mechanic [facility] I am callingtoday for your bi-weekly check in. I am sorry I missed your call. I will reach out to you again tomorrow. (if the third call I will reach out to you again next week) Enter next patient outreach date for the following business day using the Track Pt Outreach. End outreach. Alison Hi RN May 28, 2022 4:02 PM * Alison Hi RN - 05/26/2022 2:40 PM EST [facility] TELEPHONIC OUTREACH Provider Action/FYI: Call to Pt left a message to verify COPD/ CKD symptom status and needs Contact made with patient: No - Left message Hello my name is Alison Hi RN your Automatic Dispenser Mechanic [facility] I am callingtoday for your bi-weekly check in. I am sorry I missed your call. I will reach out to you again tomorrow. (if the third call I will reach out to you again next week) Enter next patient outreach date for the following business day using the Track Pt Outreach. End outreach. Alison Hi RN May 26, 2022 2:40 PM documented in this encounterPike Community Hospital10-31-2022 History of Present illness Narrative* Tiera Gutierrez, RT(R) - 05/17/2022 9:00 AM EDT Radiology Service Progress Note PATIENT NAME: Dick Artis DATE OF SERVICE: May 17, 2022 TIME: 10:11 AM PATIENT IDENTITY VERIFICATION COMPLETED USING TWO (2) IDENTIFIERS: Name and Date of confirmedby patient verbally. FALL SCREENING: Has the patient [...] 17, 2022 10:11 AM documented in this encounterPike [facility] Hospital10-14-2022 History of Present illness Narrative* Kolton Jaffe RN - 04/30/2022 2:09 PM EDT [facility] TELEPHONIC OUTREACH Provider Action/FYI: Call to Pt left a message to verify COPD/ CKD symptom status and needs Contact made with patient: No - Left message Hello my name is Alison Hi RN your Automatic Dispenser Mechanic [facility] I am callingtoday for your bi-weekly check in. I am sorry I missed your call. I will reach out to you again tomorrow. (if the third call I will reach out to you again next week) Enter next patient outreach date for the following business day using the Track Pt Outreach. End outreach. No - Left message Alison Hi RN April 30, 2022 2:09 PM documented in this encounterPike [facility] Hospital10-12-2022 History of Present illness Narrative* Spencer Boone MD - 04/28/2022 9:24 AM EDT ESTABLISHED PATIENT VISIT HPI Dick Artis is a 86 year old female who [...] (no units) Date Value 12/03/2015 Negative Specific Ironside, Ur (no units) Date Value 12/03/2015 1.020 [...] LUOXA, LUURIC, LUVOL, LSCAO, LSCAP, LSURIC, LUCL, MOHAMUD,ANISHA, LUUREA, LUAM, LUMAG, LUPHOS, LUPCR, LUCREA, LUCRKBW, LUCAKBW, LUCACREA, LUCREACL, LWK, LUSUL in the last [id number] hours. REVIEW OF SYSTEMS Review of Systems [...] kidney disease) stage 3, GFR 30-59 ml/min ([facility]) 07/30/2018 COPD (chronic obstructive pulmonary disease) ([facility]) Diverticulosis of colon (without mention of [...] HYSTERECT W/WO RMVL TUBE OVARY 05/18/1971 Hysterectomy, WILFREDO, LSO carcinoma insitu FAMILY HISTORY Problem Relation [...] 2 Puffs as instructed every 4 hours asneeded for wheezing/shortness of breath. May take 2 puffs prior to exercise traZODone (DESYREL) 50 mg tablet Take 1 tablet by mouth daily at bedtime. for sleep multivitamin with folic acid (THERA, ONE DAILY) 400 mcg Take by mouth. ipratropium (ATROVENT) 0.02 % nebulizer solution USE 1 VIAL (2.5 ML) VIA NEBULIZER FOUR TIMES A DAYOVER 5 TO 15 MINUTES FOR WHEEZING OR [...] appearing, alert, in no acute distress, and well- hydrated, well nourished Reviewed CT findings with patient [...] Level: 1 - N/A documented in this encounterPike Community Hospital10-10-2022 History of Present illness Narrative* Alina Delvalle MD - 04/26/2022 2:15 PM EDT Images from the original note were not included. . [facility] Note Patient name: Dick Artis PCP: Mady Dunn MD CC: follow-up PFTs HPI: Dick Artis 86 year old female former 50 pack year smoker with PMH significant for PAD (leftCEA), CKD 3, HTN, TIA and COPD former patient of Dr. Vera. Currently being evaluated for a renalmass (2 cm right renal mass is indeterminate [...] and persistent LE edema. PFTs have shown progressiverestriction since July. She has gained some weight [...] 4 5 When I walk up a hillor one flight or stairs I am very [...] kidney disease) stage 3, GFR 30-59 ml/min ([facility]) 07/30/2018 COPD (chronic obstructive pulmonary disease) ([facility]) Diverticulosis of colon (without mention of [...] 2 Puffs as instructed every 4 hours asneeded for wheezing/shortness of breath. May take 2 puffs prior to exercise traZODone (DESYREL) 50 mg tablet Take 1 tablet by mouth daily at bedtime. for sleep multivitamin with folic acid (THERA, ONE DAILY) 400 mcg Take by mouth. ipratropium (ATROVENT) 0.02 % nebulizer solution USE 1 VIAL (2.5 ML) VIA NEBULIZER FOUR TIMES A DAYOVER 5 TO 15 MINUTES FOR WHEEZING OR [...] HYSTERECT W/WO RMVL TUBE OVARY 05/18/1971 Hysterectomy, WILFREDO, LSO carcinoma insitu PMH, Social history, family [...] for this degree of restriction. No significant chestcage abnormality. No physical findings to suggest pulmonary fibrosis. No scleroderma -Start with CXR. May need chest CT COPD -Mild COPD -Continue current therapy -Check eosinophil count for allergic component Peripheral edema -Repeat BNP -Sees Dr. Luis roth. Consider echo. Alina Delvalle MD [facility] documented in this encounterPike [facility] Hospital10-05-2022 Miscellaneous Notes* [facility] - Giovani Pate - 04/21/2022 2:00 PM EDT Radiology Service Progress Note DATE OF SERVICE: [...] creatinine assay has traceable calibration to isotope dilution- mass spectrometry. Refer to KDIGO guidelines for clinical interpretation. In patients with unstable renal function, e.g. those with acute kidney injury, the eGFRmay not accurately reflect actual GFR. eGFR- Date Value Ref Range Status 01/24/2021 54 Final P.O.C.T. RESULTS: POC done: Yes, See Lab Tab April 21, 2022 TREATMENT: N/A PERIPHERAL IV DATA: Inpatient - refer to LDA documentation RADIOLOGY DEPARTMENT: CT; Exam(s) Completed: Abdomen/Pelvis SIGNATURE: Giovani Pate PATIENT NAME: Dick Artis DATE: April 21, 2022 TIME: 2:35 PM documented in this encounterPike Community Hospital10-05-2022 Nurse Note* Keily Rosas RN - 04/21/2022 2:00 PM EDT Radiology Service Progress Note DATE OF SERVICE: [...] creatinine assay has traceable calibration to isotope dilution- mass spectrometry. Refer to KDIGO guidelines for clinical interpretation. In patients with unstable renal function, e.g. those with acute kidney injury, the eGFRmay not accurately reflect actual GFR. eGFR- Date Value Ref Range Status 01/24/2021 54 Final P.O.C.T. RESULTS: POC done: Yes, See Lab Tab April 21, 2022 TREATMENT: N/A IV SITE: Ambulatory: A peripheral IV was started in the Left antecubital site with a Angio cath: 20gauge. IV SITE APPEARANCE: Clean,Dry and Intact SIGNATURE: Keily Rosas RN PATIENT NAME: Dick Arits DATE: April 21, 2022 TIME: 2:20 PM documented in this encounterPike Community Hospital09-30-2022 Miscellaneous Notes* Telephone Encounter - Ana PEREZ - 04/16/2022 1:00 PM EDT Spoke to pt and answered her questions. Ana PEREZ documented in this encounterPike [facility] Hospital09-19-2022 Miscellaneous Notes* Telephone Encounter - Ana PEREZ - 04/05/2022 2:00 PM EDT Please enter order for hydration and pt will get rescheduled. Ana PEREZ * Telephone Encounter - Spencer Boone MD - 04/05/2022 1:28 PM EDT Needs rescheduled to time and location when IV cvan be done * Telephone Encounter - Betty Todd CMA - 04/02/2022 10:44 AM EDT Please advise - Pt had hydration for past Ct Betty Todd CMA * Telephone Encounter - Ana PEREZ - 04/02/2022 10:00 AM EDT Tiana from [place] [facility] called to let us know that [...] for 04/06/22. Ana PEREZ documented in this encounterPike Community Hospital09-13-2022 Miscellaneous Notes* Telephone Encounter - Candice Guajardo APRN.CNP - 03/30/2022 1:33 PM EDT Rx approved. * Telephone Encounter - Angélica Franco LPN - 03/30/2022 11:46 AM EDT Patient phones requesting refills as follows: Requested Prescriptions Pending Prescriptions Disp Refills albuterol (PROVENTIL) 2.5 mg /3 mL (0.083 %) nebulizer solution 360 mL 3 Sig: USE 1 VIAL (3 ML) VIA NEBULIZER FOUR TIMES A DAY OVER 5 TO 15 MINUTES FOR WHEEZING AND SHORTNESS OF BREATH Please review and advise. Angélica Franco LPN documented in this encounterPike Community Hospital09-12-2022 History of Present illness Narrative* Kolton Jaffe, RN - 03/29/2022 3:56 PM EDT [facility] TELEPHONIC OUTREACH Provider Action/FYI: Spk with Pt she noted she has chronic bilateral leg edema, she uses compression stockings and elevates her legs as needed, and monitors the sodium in her diet. Pt follows with Dr. Olimpia Harris. Pt denies needs or concerns. Contact made [...] like to speak with a social work instrument repairer steam plant to help give you support for any [...] work with you to ensure that we arekeeping your medical condition(s) well-controlled and to keep you healthy and out of the doctor's office or hospital. It s also not too late for me to sign you up for automated weekly questionnaires through [employer]. This is an easy way for us [...] the week as today in the Track PtOutreach and End outreach. Alison Hi RN March 29, 2022 3:56 PM documented in this encounterPike Community Hospital08-23-2022 History of Present illness Narrative* Angélica Doan DO - 03/09/2022 10:25 AM EDT This office note has been dictated. Angélica Doan DO documented in this encounterPike Community Hospital08-11-2022 History of Present illness Narrative* Kolton Jaffe RN - 02/25/2022 1:24 PM EDT [facility] TELEPHONIC OUTREACH Provider Action/FYI: Call to Pt left a message to verify COPD/ CKD symptom status and needs Contact made with patient: No - Left message Guy my name is Alison Hi RN your Automatic Dispenser Mechanic [facility] I am callingtoday for your bi-weekly check in. I am sorry I missed your call. I will reach out to you again tomorrow. (if the third call I will reach out to you again next week) Enter next patient outreach date for the following day using the Track Pt Outreach. End outreach. Alison Hi RN February 25, 2022 1:24 PM documented in this encounterPike Community Hospital08-04-2022 Miscellaneous Notes* Telephone Encounter - Gila Sotelo - 02/18/2022 10:01 AM EDT Spoke with Lamar at [facility] She is able to get a machine for the patient Needs an order with patient name Pump setting and provider signature. * Telephone Encounter - Gila Sotelo - 02/18/2022 9:21 AM EDT Called [facility] and left VM to call our office regarding pump order * Telephone Encounter - Gila Sotelo - 02/17/2022 4:27 PM EDT Patient calling she received an update regarding her pump and there is a large out of pocket cost. She contacted [facility] and they advised she could get a pump from them for less out of pocket Will call them to inquire about ordering process PH [phone] documented in this encounterPike Community Hospital07-21-2022 History of Present illness Narrative* Ana Hernandez PA-C - 02/04/2022 8:19 AM EDT [facility], 02/04/2022: Name: Dick Artis : 1935 The patient is here today by herself. HPI: Dick Artis is a 86 yo former smoker, 53 pack-years, with PMH significant for basal cell carcinoma, bilateral carotid stenosis s/p left carotid endarterectomy 01/2021, CKD stage 3, diverticulosis, HTN, TIA on plavix, and COPD. Currently being evaluated by urology secondary to incidentally discovered right renal mass. CT on 12/08 revealed a 2.2 cm indeterminate lesion along the anterior aspect of the right kidney. Follow upUS did not show spot on kidney and [...] phlegm in the mornings. Describes it as creamy. No hemoptysis. No pleuritic chest pain. No wheezing. No dyspnea at rest. Exertional dyspnea seems worse with the heat and humidity. I can't do much. Significant swelling in legs. On multiple diuretics per Dr. Smith, [facility]. On Lasix, Aldactone, losartan-HCTZ. Per patient, he tried to double up on those, but it didn't help. Additionally, being evaluated by Dr. Doan, vascular, for PAD and venous insufficiency. PMH: [...] No angina, orthopnea. GI: No heartburn, dysphagia. Uro/WIRE SPLICER: See HPI. Musculoskeletal: No pain. Neuro: No [...] answers. Ana Hernandez PA-C documented in this encounterPike Community Hospital07-18-2022 Instructions* Patient Instructions* Maddison Renteria APRN.PRODUCE ASSISTANT - 02/01/2022 11:41 AM EDT Try trazodone [...] is 20 to 35 grams. If you areincreasing your fiber intake do so slowly to [...] half or every other day or so ifstools become too loose. Check to see if your insurance covers shingles vaccine and what location to get the vaccine -usually best covered at your local pharmacy where you get prescriptions filled documented in this encounterPike Community Hospital07-18-2022 History of Present illness Narrative* Maddison Renteria APRN.CNS - 02/01/2022 11:00 AM EDT SUBJECTIVE: SHINGRIX VACCINE(1 of 2) Never done COVID-19 VACCINE(3 - Booster for Moderna series) due on 02/11/2021 ADVANCE DIRECTIVE DISCUSSION Never done Dick Artis is a 86 year old female. PMH signficiant for ACTIVE PROBLEM LIST Peripheral Enthesopathies and Allied Syndromes Osteoporosis, Unspecified restless leg syndrome Diverticulosis of Colon (Without Mention of Hemorrhage) Personal History of Colonic Polyps Restless Legs Syndrome (Rls) Brachial Neuritis Or Radiculitis NOS Htn (Hypertension), Benign Hypokalemia Copd (Chronic Obstructive Pulmonary Disease) ([facility]) S/P Unilateral Salpingo-Oophorectomy S/P Wilfredo (Total Abdominal Hysterectomy) Hyperlipidemia Hypertension Vitamin D Deficiency Nonspecific Abnormal Finding in Stool Contents Acute Gastritis Without Mention of Hemorrhage Calculi, Ureter Essential Hypertension Mixed Simple and Mucopurulent Chronic Bronchitis ([facility]) Mixed Hyperlipidemia Herpes Zoster Without Complication Bifascicular Block Obesity, Class I, Bmi 30-34.9 Ckd (Chronic Kidney Disease) Stage 3, Gfr 30-59 Ml/Min ([facility]) Tia (Transient Ischemic Attack) Carotid Artery Stenosis Pad (Peripheral Artery Disease) ([facility]) Vascular: Dr. Doan. Manager Logistic: [facility]. Pulmonology: Ana Hernandez Urologist: Spencer Boone MD for incidentally discovered right renal mass 11/2021. US did not show lesion of interest, CT ordered. Scheduled : For March Notes she is in overall her usual state of health. She notes chronic leg swelling, has been seeing Dr. Doan for this. Considering compression pumps. This process [...] on exertion, increased from baseline. Has upcoming appointmentswith pulmonology and cardiology. Today she is without [...] Take 1 capsule by mouth once daily. Jkodgklqzenfj-Vbdiexdl-Ubdntg (CENTRUM SILVER) ORAL Tab, Take one(1) tablet daily. PAST MEDICAL HISTORY Diagnosis Date Basal cell carcinoma Carotid stenosis,asymptomatic bilateral CKD (chronic kidney disease) stage 3, GFR 30-59 ml/min ([facility]) 07/30/2018 COPD (chronic obstructive pulmonary disease) ([facility]) Dr [place] health officer Diverticulosis of colon (without mention of hemorrhage) [...] immunization - ICD9: V03.89, ICD10: Z23 - [employer] COVID-19 VACCINE, AGE 12+ YR ([place] [facility]) 3. Constipation, unspecified constipation type - ICD9: 564.00, ICD10: K59.00 4. Essential hypertension - ICD9: 401.9, ICD10: I10 (primary diagnosis) Suboptimal control, followed by cardiology. [facility] provider stopped amlodipine in the past due to ankle swelling. 5. Stage 3a chronic kidney disease (HCC) - ICD9: 585.3, ICD10: N18.31 stable Recommend trial of trazodone for insomnia, normal saline spray before bedtime for nasal congestion,home instructions for constipation provided including increased fluid intake as most recent BUN significantly elevated. MiraLAX as needed [id number]. She notes increased shortness of breath, last echocardiogram 2018 at [facility], declines follow-up echo today, prefers to follow-up with her siding coreboard inspector. schedule routine follow up with MD Maddison Peters APRN.PRODUCE ASSISTANT Medical Decision Making: Problems: Moderate: 1+ chronic illnesses with change and 2+ stable chronic illnesses Risk: Moderate: Drug management Medical Decision Making Level: 4 - Moderate documented in this encounterPike Community Hospital07-11-2022 Miscellaneous Notes* Telephone Encounter - Angélica Doan DO - 01/25/2022 8:40 AM EDT Received a call from Mrs. Artis. She continues to have bilateral lower extremity edema especially on her top of her feet. Compression has not improved symptoms. We discussed possible addition of compression pump. Will discuss with office staff about arranging for pumps. documented in this encounterPike Community Hospital06-22-2022 History of Present illness Narrative* Kolton Jaffe RN - 01/06/2022 3:57 PM EDT Alison Hi RN [facility] TELEPHONIC OUTREACH Provider Action/FYI: Call to Pt left a message to verify COPD/ CKD symptom status and needs Contact made with patient: No - Left message Hello my name is Alison Hi RN your Automatic Dispenser Mechanic [facility] I am callingtoday for your bi-weekly check in. I am sorry I missed your call. I will reach out to you again tomorrow. (if the third call I will reach out to you again next week) Enter next patient outreach date for the following business day using the Track Pt Outreach. End outreach. Alison Hi RN January 06, 2022 3:57 PM documented in this encounterPike Community Hospital06-21-2022 Miscellaneous Notes* Telephone Encounter - Ana PEREZ - 01/05/2022 10:01 AM EDT Error * Telephone Encounter - Ana PEREZ - 01/05/2022 10:01 AM EDT ----- Message from Spencer Boone MD sent [...] a follow-up with me documented in this encounterPike Community Hospital06-13-2022 History of Present illness Narrative* Spencer Boone MD - 12/28/2021 10:01 AM EDT NEW PATIENT HISTORY AND PHYSICAL EXAM HPI Dick Artis is a 86 year old female who [...] which reported a 1.6 cm right renal cyst.;I would assume likely the lateral cyst on [...] (no units) Date Value 12/03/2015 Negative Specific Ironside, Ur (no units) Date Value 12/03/2015 1.020 [...] Take 1 capsule by mouth once daily. Jmabkomxsuhrr-Cjfbprma-Uzbbgo (CENTRUM SILVER) ORAL Tab, Take one(1) tablet daily. HISTORIES PAST MEDICAL HISTORY Diagnosis Date Basal cell carcinoma Carotid stenosis,asymptomatic bilateral CKD (chronic kidney disease) stage 3, GFR 30-59 ml/min ([facility]) 07/30/2018 COPD (chronic obstructive pulmonary disease) ([facility]) Dr [place] health officer Diverticulosis of colon (without mention of hemorrhage) [...] HYSTERECT W/WO RMVL TUBE OVARY 05/18/1971 Hysterectomy, WILFREDO, LSO carcinoma insitu SOCIAL HISTORY Social History [...] appearing, alert, in no acute distress and well- hydrated, well nourished Reviewed labs, reviewed imaging ASSESSMENT/PLAN: [...] and in 8 months documented in this encounterPike Community Hospital06-10-2022 Miscellaneous Notes* Telephone Encounter - Gila Sotelo - 12/25/2021 12:04 PM EDT Results faxed as requested Encounter closed [facility] History of Present illness Narrative* Kolton Jaffe RN - 12/23/2021 4:29 PM EDT [facility] TELEPHONIC OUTREACH Provider Action/FYI: Call to Pt left a message to verify COPD symptom status and needs Contact made with patient: No - Left message Hello my name is Alison Hi RN your Automatic Dispenser Mechanic [facility] the [facility] I am callingtoday for your bi-weekly check in. I am sorry I missed your call. I will reach out to you again tomorrow. (if the third call I will reach out to you again next week) Enter next patient outreach date for the following business day using the Track Pt Outreach. End outreach. Alison Hi RN December 23, 2021 4:29 PM * Kolton Jaffe RN - 12/22/2021 10:50 AM EDT [facility] TELEPHONIC OUTREACH Provider Action/FYI: Call to Pt line rang busy, unable to leave a message Contact made with patient: No - Unable to leave message Entered next patient outreach date for the following business day, if third call please enter next outreach date for one week in the Track Pt. Outreach - End Outreach Alison Hi RN December 22, 2021 10:50 AM [facility] Miscellaneous Notes* Telephone Encounter - Alie Haywood - 12/09/2021 12:43 PM EDT Patient is scheduled with urlolgy for 12/28/21 in the [place] office, encounter closed. * Telephone Encounter - Angélica Doan DO - 12/09/2021 11:41 AM EDT Reviewed CTA with Mrs. Artis. Recommend continued non-interventional therapy. Swelling was improveda little with compression stockings. Recommend continued use of compression stockings. Reviewed renal findings on CT. Would recommend referral to urology for further evaluation of kidney lesion documented in this [facility]05-24-2022 History of Present illness Narrative* Angélica Doan DO - 12/08/2021 11:33 AM EDT Appointment cancelled. No imaging available documented in this [facility]05-[facility] History of Present illness Narrative* Tiera Anderson, RT(R) - 12/08/2021 10:40 AM EDT Radiology Service Progress Note PATIENT NAME: Dick Artis DATE OF SERVICE: December 08, 2021 TIME: 3:52 PM PATIENT IDENTITY VERIFICATION COMPLETED USING TWO (2) IDENTIFIERS: Name and Date of confirmedby patient verbally. FALL SCREENING: Has the patient [...] 08, 2021 3:52 PM [facility] Miscellaneous Notes* Telephone Encounter - Megan Haywood - 12/07/2021 4:10 PM EDT Patient has been moved back to tomorrow morning Luisa in radiology let the patient know of this change Megan Reyes Pss * Telephone Encounter - Janice Headley RN - 12/07/2021 3:59 PM EDT Hem/Onc just had a [address] and psr's made aware. OK to reschedule pt for 9am tomorrow morning if needed. * Telephone Encounter - MARY Blevins - 12/07/2021 3:46 PM EDT L/m message for pt to call if questions and get details of her appt that got rescheduled * Telephone Encounter - Janice Headley RN - 12/07/2021 3:18 PM EDT Hem/Onc was asked about this patient earlier and we told them that we do not have time to hydrate. Why was this patient scheduled? * Telephone Encounter - Margy Burns - 12/07/2021 2:45 PM EDT Patient scheduled aware of time tomorrow. Margy Burns * Telephone Encounter - MARY Blevins - 12/07/2021 2:16 PM EDT Pt needs hydration for appt CT tomorrow 12/08/21 please schedule and call pt to let them know thanks I put a phone for dr to place orders for hydration [facility] History of Present illness Narrative* Kolton Jaffe RN - 12/07/2021 1:58 PM EDT inSight CDM Engagement Provider Action/FYI: Call to Pt left a message to verify COPD symptom status and needs. Contact Made with Patient: No, second attempt, left message. uGy Artis. This is Alison Hi RN your Automatic Dispenser Mechanic from the [facility].I am calling to check in with you concerning the MyChart questionnaire you have been receiving fromca. I will call you again next week and am looking forward to speaking with you. (Automatic Dispenser Mechanic enters next week's date in next patient outreach) Alison Hi RN December 07, 2021 1:59 PM [facility] History of Present illness Narrative* Kolton Jaffe RN - 12/03/2021 4:27 PM EDT INS[facility] TELEPHONIC OUTREACH Provider Action/FYI: Call to Pt left a message to verify COPD/ CKD or other symptom status or needs. Contact made with patient: No - Left message Guy my name is Alison Hi RN your Automatic Dispenser Mechanic [facility] I am calling today for your bi-weekly check in. I am sorry I missed your call. I will reach out to you again tomorrow. (if the third call I will reach out to you again next week) Enter next patient outreach date forth using the Track Pt Outreach. End outreach. Alison Hi RN December 03, 2021 4:27 PM documented [facility] History of Present illness Narrative* Angélica Doan DO - 11/24/2021 10:54 AM EDT This office note has been dictated. Angélica Doan DO documented in this [facility] History of Present illness Narrative* Kolton Jaffe RN - 11/20/2021 4:21 PM EDT [facility] TELEPHONIC OUTREACH Provider Action/FYI: Call to Pt left a message related to COPD / CKD /Leg edema symptom status and needs. Contact made with patient: No - Left message Guy my name is Alison Hi RN your Automatic Dispenser Mechanic [facility] the [facility] I am calling today for your bi-weekly check in. I am sorry I missed your call. I will reach out to you again tomorrow. (if the third call I will reach out to you again next week) Enter next patient outreach date forth following using the Track Pt Outreach. End outreach. Alison Hi RN November 20, 2021 4:21 PM documented in this [facility] Miscellaneous Notes* Telephone Encounter - Alie Armstrong Pss - 11/19/2021 1:34 PM EDT Spoke to patient to schedule appointment with dr. Doan. Encounter closed. documented in [facility] History of Present illness Narrative* Kolton Jaffe RN - 11/17/2021 12:27 PM EDT [facility] TELEPHONIC OUTREACH Provider Action/FYI: Call to Pt left a message to verify COPD or other symptoms and needs. Contact made with patient: No - Left message Guy my name is Alison Hi RN your Automatic Dispenser Mechanic [facility] I am calling today for your bi-weekly check in. I am sorry I missed your call. I will reach out to you again tomorrow. (if the third call I will reach out to you again next week) Enter next patient outreach date forthe following business day using the Track Pt Outreach. End outreach. Alison Hi RN November 17, 2021 12:28 PM documented in this [facility]04-28[facility] History of Present illness Narrative* Koltno Jaffe RN - 11/12/2021 4:56 PM EDT [facility] TELEPHONIC OUTREACH Provider Action/FYI: Call to Pt left a message to verify COPD/ CKD or other symptoms or concerns. Contact made with patient: No - Left message Helkadeem my name is Alison Hi RN your Automatic Dispenser Mechanic [facility] I am calling today for your bi-weekly check in. I am sorry I missed your call. I will reach out to you again tomorrow. (if the third call I will reach out to you again next week) Enter next patient outreach date forthe following business day using the Track Pt Outreach. End outreach. Alison Hi RN November 12, 2021 4:56 PM documented in this encounterP[facility]04-27-2022 Instructions* Patient Instructions* Chanelle Hagen APRN.CNP - 11/11/2021 9:06 AM EDT 1.) Schedule appointment for vascular testing and appointment for Dr. Doan. 2.) May try taking 50 mg of Aldactone (water pill) to see if you can get some improvement with swelling. 3.) Continue to wear compression socks and elevate the legs. Follow up as needed. documented in this [facility]04[facility] History of Present illness Narrative* Chanelle Hagen APRN.CNP - 11/11/2021 9:00 AM EDT This is a 86 year old female who presents today with: Patient presents with: Acute Visit: Bilat feef and ankle swelling HISTORY OF PRESENT ILLNESS: Dick Artis is a 86 year old female. Patient presents with: Acute Visit: Bilat feef and ankle swelling Patient of Dr. Dunn here in the office for concerns of edema in bilateral feet and ankle. Started about 1 week ago. Had similar occurrence in July, saw Dr. Doan (Vascular), was instructed to use support socks. Has been wearing socks/elevating legs and has not noticed a difference. Swelling can be painful at time. Denies any chest pain, palpitations, or new SOB. PAST MEDICAL HISTORY: PAST MEDICAL HISTORY Diagnosis Date Basal cell carcinoma Carotid stenosis,asymptomatic bilateral CKD (chronic kidney disease) stage 3, GFR 30-59 ml/min ([facility]) 07/30/2018 COPD (chronic obstructive pulmonary disease) ([facility]) Dr [place] health officer Diverticulosis of colon (without mention of hemorrhage) [...] HYSTERECT W/WO RMVL TUBE OVARY 05/18/1971 Hysterectomy, WILFREDO, LSO carcinoma insitu ALLERGIES Amlodipine, Aspirin, Lisinopril, and Requip [Ropinirole] MEDICATIONS Current Outpatient Medications Medication Sig budesonide (PULMICORT) 0.5 mg/2 mL nebulizer solution INHALE THE CONTENTS OF 1 VIAL (2 ML) VIA NEBULIZER TWICE A DAY. USE EVERY 12 HOURS OVER 5 TO 15 MINUTES. ipratropium (ATROVENT) 0.02 % nebulizer solution USE 1 VIAL (2.5 ML) VIA NEBULIZER FOUR TIMES A DAYOVER 5 TO 15 MINUTES FOR WHEEZING OR [...] 2 Puffs as instructed every 4 hours asneeded for wheezing/shortness of breath. May take 2 puffs prior to exercise furosemide (LASIX) 40 mg tablet Take 40 mg by mouth once daily. carvedilol (COREG) 6.25 mg tablet Take 2 tablets by mouth twice daily. (Dr. Smith adjusting) Cholecalciferol, Vitamin D3, 1,000 unit cap Take 1 capsule by mouth once daily. Lekzqcqrocfwi-Jvlozqrs-Onzsci (CENTRUM SILVER) ORAL Tab Take one(1) tablet [...] worsening symptoms recommend follow up with Dr. Doan. - PVR studies were ordered by specialist [...] discussed and patient voices understanding. Chanelle Hagen APRN.CNP This note was partially generated using [employer] voice recognition system. Note was reviewed for accuracy. There may be minor misspellings or grammar miscues with [employer] voice recognition. documented in this encounterP[facility]04[facility]22 Miscellaneous Notes* Telephone Encounter - Maddison Renteria APRN.CNS - 11/10/2021 1:39 PM EDT Mady Dunn MD out of office. Should be ok as scheduled * Telephone Encounter - Virgie Herbert RN - 11/10/2021 11:29 AM EDT Protocol Recommended: See PCP within 24 hours. No appts available in next 24 hours in Internal medicine. Appt made on 11/11 with Chanelle Hagen for 9am, if provider agreeable. Please [...] she does take diuretics. Protocols used: ANKLE HOZCKJAN-HTOHN-QT documented in this encounterP[facility]04[facility] History of Present illness Narrative* Kolton Jaffe RN - 10/29/2021 5:16 PM EDT [facility] TELEPHONIC OUTREACH Provider Action/FYI: Call to Pt left a message to verify COPD/ CKD symptom status, needs. Contact made with patient: No - Left message Guy my name is Alison Hi RN your Automatic Dispenser Mechanic [facility] I am calling today for your bi-weekly check in. I am sorry I missed your call. I will reach out to you again tomorrow. (if the third call I will reach out to you again next week) Enter next patient outreach date forthe following business using the Track Pt Outreach. End outreach. Alison Hi RN October 29, 2021 5:16 PM documented in this encounterP[facility]04[facility]22 History of Present illness Narrative* Kolton Jaffe RN - 10/21/2021 1:17 PM EDT [facility] TELEPHONIC OUTREACH Provider Action/FYI: Call to Pt left a message to verify COPD/ CKD symptom status, needs. Contact made with patient: No - Left message Guy my name is Alison Hi RN your Automatic Dispenser Mechanic [facility] I am calling today for your bi-weekly check in. I am sorry I missed your call. I will reach out to you again tomorrow. (if the third call I will reach out to you again next week) Enter next patient outreach date forthe following using the Track Pt Outreach. End outreach. Alison Hi RN October 21, 2021 1:17 PM documented in this encounterP[facility] History of Past illness Narrative* Problem Noted Date Resolved Date HTN (hypertension) 12/11/2014 04/07/2015 documented as of this encounter (statuses as of 10/21/2021) [address]27-2015 History of Past illness Narrative* Problem Noted Date Resolved Date HTN (hypertension) 12/11/2014 04/07/2015 documented as of this encounter (statuses as of 10/29/2021) [facility]* Problem Noted Date Resolved Date HTN (hypertension) 12/11/2014 04/07/2015 documented as of this encounter (statuses as of 11/09/2021) [facility] Narrative* Problem Noted Date Resolved Date HTN (hypertension) 12/11/2014 04/07/2015 documented as of this encounter (statuses as of 11/10/2021) [facility] N[facility]* Problem Noted Date Resolved Date HTN (hypertension) 12/11/2014 04/07/2015 documented as of this encounter (statuses as of 11/11/2021) [facility] N[facility]* Problem Noted Date Resolved Date HTN (hypertension) 12/11/2014 04/07/2015 documented as of this encounter (statuses as of 11/12/2021) [address] History of Past illness Narrative* Problem Noted Date Resolved Date HTN (hypertension) 12/11/2014 04/07/2015 documented as of this encounter (statuses as of 11/17/2021) [facility]* Problem Noted Date Resolved Date HTN (hypertension) 12/11/2014 04/07/2015 documented as of this encounter (statuses as of 11/19/2021) [facility]* Problem Noted Date Resolved Date HTN (hypertension) 12/11/2014 04/07/2015 documented as of this encounter (statuses as of 11/20/2021) [address]2015 History of Past illness Narrative* Problem Noted Date Resolved Date HTN (hypertension) 12/11/2014 04/07/2015 documented as of this encounter (statuses as of 11/24/2021) [facility]* Problem Noted Date Resolved Date HTN (hypertension) 12/11/2014 04/07/2015 documented as of this encounter (statuses as of 12/03/2021) [address]2015 History of Past illness Narrative* Problem Noted Date Resolved Date HTN (hypertension) 12/11/2014 04/07/2015 documented as of this encounter (statuses as of 12/07/2021) [facility]* Problem Noted Date Resolved Date HTN (hypertension) 12/11/2014 04/07/2015 documented as of this encounter (statuses as of 12/08/2021) [address]2015 History of Past illness Narrative* Problem Noted Date Resolved Date HTN (hypertension) 12/11/2014 04/07/2015 documented as of this encounter (statuses as of 12/09/2021) [facility]* Problem Noted Date Resolved Date HTN (hypertension) 12/11/2014 04/07/2015 documented as of this encounter (statuses as of 12/09/2021) [facility]* Problem Noted Date Resolved Date HTN (hypertension) 12/11/2014 04/07/2015 documented as of this encounter (statuses as of 12/23/2021) [address]2015 History of Past illness Narrative* Problem Noted Date Resolved Date HTN (hypertension) 12/11/2014 04/07/2015 documented as of this encounter (statuses as of 12/25/2021) [facility]* Problem Noted Date Resolved Date HTN (hypertension) 12/11/2014 04/07/2015 documented as of this encounter (statuses as of 12/28/2021) [facility]* Problem Noted Date Resolved Date HTN (hypertension) 12/11/2014 04/07/2015 documented as of this encounter (statuses as of 01/05/2022) [address]2015 History of Past illness Narrative* Problem Noted Date Resolved Date HTN (hypertension) 12/11/2014 04/07/2015 documented as of this encounter (statuses as of 01/06/2022) [facility] Problem Noted Date Resolved Date HTN (hypertension) 12/11/2014 04/07/2015 documented as of this encounter (statuses as of 01/25/2022) [address]2015 History of Past illness Narrative* Problem Noted Date Resolved Date HTN (hypertension) 12/11/2014 04/07/2015 documented as of this encounter (statuses as of 02/01/2022) [address]2015 History of Past illness Narrative* Problem Noted Date Resolved Date HTN (hypertension) 12/11/2014 04/07/2015 documented as of this encounter (statuses as of 02/04/2022) [address]2015 History of Past illness Narrative* Problem Noted Date Resolved Date HTN (hypertension) 12/11/2014 04/07/2015 documented as of this encounter (statuses as of 02/25/2022) [address]2015 History of Past illness Narrative* Problem Noted Date Resolved Date HTN (hypertension) 12/11/2014 04/07/2015 documented as of this encounter (statuses as of 03/05/2022) [address]2015 History of Past illness Narrative* Problem Noted Date Resolved Date HTN (hypertension) 12/11/2014 04/07/2015 documented as of this encounter (statuses as of 03/09/2022) [address]2015 History of Past illness Narrative* Problem Noted Date Resolved Date HTN (hypertension) 12/11/2014 04/07/2015 documented as of this encounter (statuses as of 03/29/2022) [address]2015 History of Past illness Narrative* Problem Noted Date Resolved Date HTN (hypertension) 12/11/2014 04/07/2015 documented as of this encounter (statuses as of 03/29/2022) [address]27[address]2015 History of Past illness Narrative* Problem Noted Date Resolved Date HTN (hypertension) 12/11/2014 04/07/2015 documented as of this encounter (statuses as of 03/30/2022) [address]27[address]2015 History of Past illness Narrative* Problem Noted Date Resolved Date HTN (hypertension) 12/11/2014 04/07/2015 documented as of this encounter (statuses as of 04/05/2022) [address]2015 History of Past illness Narrative* Problem Noted Date Resolved Date HTN (hypertension) 12/11/2014 04/07/2015 documented as of this encounter (statuses as of 04/15/2022) [address]27[address]2015 History of Past illness Narrative* Problem Noted Date Resolved Date HTN (hypertension) 12/11/2014 04/07/2015 documented as of this encounter (statuses as of 04/16/2022) [address]27[address]2015 History of Past illness Narrative* Problem Noted Date Resolved Date HTN (hypertension) 12/11/2014 04/07/2015 documented as of this encounter (statuses as of 04/19/2022) [address]27[address]2015 History of Past illness Narrative* Problem Noted Date Resolved Date HTN (hypertension) 12/11/2014 04/07/2015 documented as of this encounter (statuses as of 04/22/2022) [address]27[address]2015 History of Past illness Narrative* Problem Noted Date Resolved Date HTN (hypertension) 12/11/2014 04/07/2015 documented as of this encounter (statuses as of 04/27/2022) [address]27[address]2015 History of Past illness Narrative* Problem Noted Date Resolved Date HTN (hypertension) 12/11/2014 04/07/2015 documented as of this encounter (statuses as of 04/27/2022) [address]27[address]2015 History of Past illness Narrative* Problem Noted Date Resolved Date HTN (hypertension) 12/11/2014 04/07/2015 documented as of this encounter (statuses as of 04/28/2022) [address]27[address]2015 History of Past illness Narrative* Problem Noted Date Resolved Date HTN (hypertension) 12/11/2014 04/07/2015 documented as of this encounter (statuses as of 04/30/2022) [address]27[address]2015 History of Past illness Narrative* Problem Noted Date Resolved Date HTN (hypertension) 12/11/2014 04/07/2015 documented as of this encounter (statuses as of 05/19/2022) [address]27[address]2015 History of Past illness Narrative* Problem Noted Date Resolved Date HTN (hypertension) 12/11/2014 04/07/2015 documented as of this encounter (statuses as of 05/28/2022) [address]27[address]2015 History of Past illness Narrative* Problem Noted Date Resolved Date HTN (hypertension) 12/11/2014 04/07/2015 documented as of this encounter (statuses as of 06/16/2022) [address]2015 History of Past illness Narrative* Problem Noted Date Resolved Date HTN (hypertension) 12/11/2014 04/07/2015 documented as of this encounter (statuses as of 06/16/2022) [address]2015 History of Past illness Narrative* Problem Noted Date Resolved Date HTN (hypertension) 12/11/2014 04/07/2015 documented as of this encounter (statuses as of 06/29/2022) [address]27[address]2015 History of Past illness Narrative* Problem Noted Date Resolved Date HTN (hypertension) 12/11/2014 04/07/2015 documented as of this encounter (statuses as of 07/26/2022) [address]27[address]2015 History of Past illness Narrative* Problem Noted Date Resolved Date HTN (hypertension) 12/11/2014 04/07/2015 documented as of this encounter (statuses as of 07/29/2022) [address]27[address]2015 History of Past illness Narrative* Problem Noted Date Resolved Date HTN (hypertension) 12/11/2014 04/07/2015 documented as of this encounter (statuses as of 08/02/2022) [address]27[address]2015 History of Past illness Narrative* Problem Noted Date Resolved Date HTN (hypertension) 12/11/2014 04/07/2015 documented as of this encounter (statuses as of 08/06/2022) [address]27[address]2015 History of Past illness Narrative* Problem Noted Date Resolved Date HTN (hypertension) 12/11/2014 04/07/2015 documented as of this encounter (statuses as of 08/10/2022) [address]27[address]2015 History of Past illness Narrative* Problem Noted Date Resolved Date HTN (hypertension) 12/11/2014 04/07/2015 documented as of this encounter (statuses as of 08/11/2022) [address]27[address]2015 History of Past illness Narrative* Problem Noted Date Resolved Date HTN (hypertension) 12/11/2014 04/07/2015 documented as of this encounter (statuses as of 09/03/2022) [address]27[address]2015 History of Past illness Narrative* Problem Noted Date Resolved Date HTN (hypertension) 12/11/2014 04/07/2015 documented as of this encounter (statuses as of 09/03/2022) [address]27[address]2015 History of Past illness Narrative* Problem Noted Date Resolved Date HTN (hypertension) 12/11/2014 04/07/2015 documented as of this encounter (statuses as of 09/03/2022) [address]27[address]2015 History of Past illness Narrative* Problem Noted Date Resolved Date HTN (hypertension) 12/11/2014 04/07/2015 documented as of this encounter (statuses as of 09/06/2022) [address]27[address]2015 History of Past illness Narrative* Problem Noted Date Resolved Date HTN (hypertension) 12/11/2014 04/07/2015 documented as of this encounter (statuses as of 09/19/2022) [address]27[address]2015 History of Past illness Narrative* Problem Noted Date Resolved Date HTN (hypertension) 12/11/2014 04/07/2015 documented as of this encounter (statuses as of 09/27/2022) [address]27[address]2015 History of Past illness Narrative* Problem Noted Date Resolved Date HTN (hypertension) 12/11/2014 04/07/2015 documented as of this encounter (statuses as of 09/27/2022) [address]27[address]2015 History of Past illness Narrative* Problem Noted Date Resolved Date HTN (hypertension) 12/11/2014 04/07/2015 documented as of this encounter (statuses as of 10/04/2022) [facility]* Problem Noted Date Resolved Date HTN (hypertension) 12/11/2014 04/07/2015 documented as of this encounter (statuses as of 10/18/2022) [address]2015 History of Past illness Narrative* Problem Noted Date Resolved Date HTN (hypertension) 12/11/2014 04/07/2015 documented as of this encounter (statuses as of 10/20/2022) [address]-2015 History of Past illness Narrative* Problem Noted Date Resolved Date HTN (hypertension) 12/11/2014 04/07/2015 documented as of this encounter (statuses as of 10/29/2022) [facility]-27-2015 History of Past illness Narrative* Problem Noted Date Resolved Date HTN (hypertension) 12/11/2014 04/07/2015 documented as of this encounter (statuses as of 10/30/2022) [address]-2015 History of Past illness Narrative* Problem Noted Date Resolved Date HTN (hypertension) 12/11/2014 04/07/2015 documented as of this encounter (statuses as of 11/19/2022) [facility]2015 History of Past illness Narrative* Problem Noted Date Resolved Date HTN (hypertension) 12/11/2014 04/07/2015 documented as of this encounter (statuses as of 12/15/2022) [address]-2015 History of Past illness Narrative* Problem Noted Date Resolved Date HTN (hypertension) 12/11/2014 04/07/2015 documented as of this encounter (statuses as of 12/22/2022) [address]-2015 History of Past illness Narrative* Problem Noted Date Resolved Date HTN (hypertension) 12/11/2014 04/07/2015 documented as of this encounter (statuses as of 12/22/2022) [facility]2015 History of Past illness Narrative* Problem Noted Date Resolved Date HTN (hypertension) 12/11/2014 04/07/2015 documented as of this encounter (statuses as of 12/30/2022) [address]2015 History of Past illness Narrative* Problem Noted Date Resolved Date HTN (hypertension) 12/11/2014 04/07/2015 documented as of this encounter (statuses as of 12/31/2022) [facility] History of Past illness Narrative* Problem Noted Date Resolved Date HTN (hypertension) 12/11/2014 04/07/2015 documented as of this encounter (statuses as of 01/08/2023) [facility] History of Past illness Narrative* Problem Noted Date Resolved Date HTN (hypertension) 12/11/2014 04/07/2015 documented as of this encounter (statuses as of 01/11/2023) [facility] History of Past illness Narrative* Problem Noted Date Diagnosed Date Resolved Date HTN (hypertension) 12/11/2014 5 documented as of this encounter (statuses as of 02/19/2023) [facility] History of Past illness Narrative* Problem Noted Date Diagnosed Date Resolved Date HTN (hypertension) 12/11/2014 5 documented as of this encounter (statuses as of 03/12/2023) [facility] History of Past illness Narrative* Problem Noted Date Diagnosed Date Resolved Date HTN (hypertension) 12/11/2014 5 documented as of this encounter (statuses as of 03/23/2023) [facility] History of Past illness Narrative* Problem Noted Date Diagnosed Date Resolved Date HTN (hypertension) 12/11/2014 5 documented as of this encounter (statuses as of 04/02/2023) [facility] History of Past illness Narrative* Problem Noted Date Diagnosed Date Resolved Date HTN (hypertension) 12/11/2014 5 documented as of this encounter (statuses as of 04/04/2023) [facility] History of Past illness Narrative* Problem Noted Date Diagnosed Date Resolved Date HTN (hypertension) 12/11/2014 5 documented as of this encounter (statuses as of 04/09/2023) [facility] History of Past illness Narrative* Problem Noted Date Diagnosed Date Resolved Date HTN (hypertension) 12/11/2014 5 documented as of this encounter (statuses as of 04/19/2023) [facility] History of Past illness Narrative* Problem Noted Date Diagnosed Date Resolved Date HTN (hypertension) 12/11/2014 5 documented as of this encounter (statuses as of 04/26/2023) [address]2015 History of Past illness Narrative* Problem Noted Date Diagnosed Date Resolved Date HTN (hypertension) 12/11/2014 5 documented as of this encounter (statuses as of 04/29/2023) [place] [address]-27-2015 History of Past illness Narrative* Problem Noted Date Diagnosed Date Resolved Date HTN (hypertension) 12/11/2014 5 documented as of this encounter (statuses as of 05/02/2023) [facility] History of Past illness Narrative* Problem Noted Date Diagnosed Date Resolved Date HTN (hypertension) 12/11/2014 5 documented as of this encounter (statuses as of 05/06/2023) [facility] History of Past illness Narrative* Problem Noted Date Diagnosed Date Resolved Date HTN (hypertension) 12/11/2014 5 documented as of this encounter (statuses as of 05/06/2023) [facility] History of Past illness Narrative* Problem Noted Date Diagnosed Date Resolved Date HTN (hypertension) 12/11/2014 5 documented as of this encounter (statuses as of 05/19/2023) [facility] History of Past illness Narrative* Problem Noted Date Diagnosed Date Resolved Date HTN (hypertension) 12/11/2014 5 documented as of this encounter (statuses as of 05/20/2023) [facility] History of Past illness Narrative* Problem Noted Date Diagnosed Date Resolved Date HTN (hypertension) 12/11/2014 5 documented as of this encounter (statuses as of 05/20/2023) [facility] History of Past illness Narrative* Problem Noted Date Diagnosed Date Resolved Date HTN (hypertension) 12/11/2014 5 documented as of this encounter (statuses as of 05/20/2023) [facility] History of Past illness Narrative* Problem Noted Date Diagnosed Date Resolved Date HTN (hypertension) 12/11/2014 5 documented as of this encounter (statuses as of 05/24/2023) [facility] History of Past illness Narrative* Problem Noted Date Diagnosed Date Resolved Date HTN (hypertension) 12/11/2014 5 documented as of this encounter (statuses as of 07/01/2023) [facility] History of Past illness Narrative* Problem Noted Date Diagnosed Date Resolved Date HTN (hypertension) 12/11/2014 5 documented as of this encounter (statuses as of 07/02/2023) [address]2015 History of Past illness Narrative* Problem Noted Date Diagnosed Date Resolved Date HTN (hypertension) 12/11/2014 5 documented as of this encounter (statuses as of 07/08/2023) [address]2015 History of Past illness Narrative* Problem Noted Date Diagnosed Date Resolved Date HTN (hypertension) 12/11/2014 5 documented as of this encounter (statuses as of 08/18/2023) [facility] History of Past illness Narrative* Problem Noted Date Diagnosed Date Resolved Date HTN (hypertension) 12/11/2014 5 documented as of this encounter (statuses as of 08/22/2023) [address]2015 History of Past illness Narrative* Problem Noted Date Diagnosed Date Resolved Date HTN (hypertension) 12/11/2014 5 documented as of this encounter (statuses as of 09/02/2023) [address]2015 History of Past illness Narrative* Problem Noted Date Diagnosed Date Resolved Date HTN (hypertension) 12/11/2014 5 documented as of this encounter (statuses as of 09/02/2023) [address]2015 History of Past illness Narrative* Problem Noted Date Diagnosed Date Resolved Date HTN (hypertension) 12/11/2014 5 documented as of this encounter (statuses as of 09/05/2023) [address]2015 History of Past illness Narrative* Problem Noted Date Diagnosed Date Resolved Date HTN (hypertension) 12/11/2014 5 documented as of this encounter (statuses as of 09/15/2023) [address]2015 History of Past illness Narrative* Problem Noted Date Diagnosed Date Resolved Date HTN (hypertension) 12/11/2014 5 documented as of this encounter (statuses as of 09/16/2023) [address]2015 History of Past illness Narrative* Problem Noted Date Diagnosed Date Resolved Date HTN (hypertension) 12/11/2014 5 documented as of this encounter (statuses as of 09/21/2023) [facility] History of Past illness Narrative* Problem Noted Date Diagnosed Date Resolved Date HTN (hypertension) 12/11/2014 5 documented as of this encounter (statuses as of 10/07/2023) [facility] History of Past illness Narrative* Problem Noted Date Diagnosed Date Resolved Date HTN (hypertension) 12/11/2014 5 documented as of this encounter (statuses as of 10/18/2023) [facility] History of Past illness Narrative* Problem Noted Date Diagnosed Date Resolved Date HTN (hypertension) 12/11/2014 5 documented as of this encounter (statuses as of 10/19/2023) [facility] History of Past illness Narrative* Problem Noted Date Diagnosed Date Resolved Date HTN (hypertension) 12/11/2014 5 documented as of this encounter (statuses as of 10/20/2023) [facility] History of Past illness Narrative* Problem Noted Date Diagnosed Date Resolved Date HTN (hypertension) 12/11/2014 5 documented as of this encounter (statuses as of 10/20/2023) [facility] History of Past illness Narrative* Problem Noted Date Diagnosed Date Resolved Date HTN (hypertension) 12/11/2014 5 documented as of this encounter (statuses as of 10/21/2023) [facility] History of Past illness Narrative* Problem Noted Date Diagnosed Date Resolved Date HTN (hypertension) 12/11/2014 5 documented as of this encounter (statuses as of 10/24/2023) [address]2015 History of Past illness Narrative* Problem Noted Date Diagnosed Date Resolved Date HTN (hypertension) 12/11/2014 5 documented as of this encounter (statuses as of 10/28/2023) [facility] History of Past illness Narrative* Problem Noted Date Diagnosed Date Resolved Date HTN (hypertension) 12/11/2014 5 documented as of this encounter (statuses as of 10/28/2023) [address]2015 History of Past illness Narrative* Problem Noted Date Diagnosed Date Resolved Date HTN (hypertension) 12/11/2014 5 documented as of this encounter (statuses as of 11/02/2023) [facility] History of Past illness Narrative* Problem Noted Date Diagnosed Date Resolved Date HTN (hypertension) 12/11/2014 5 documented as of this encounter (statuses as of 11/03/2023) [facility] History of Past illness Narrative* Problem Noted Date Diagnosed Date Resolved Date HTN (hypertension) 12/11/2014 5 documented as of this encounter (statuses as of 10/21/2023) [facility] Rebecca Talbot [facility] September 12, 2023 2:13pm Note Date/Time September 12, 2023 2:13pm [facility] Medical Records Department [address] [address] Counseling Note - Pharmacy 09/12/23 1412 MR#: [id number] Acct: [id number] Name: DICK ARTIS Rep #:[id number] : 1935 87 From: Rebecca Talbot PCP: Dr. Mady Dunn MD Status:AD M IN Location: [place] [address] Med Reconciliation Pharmacy Service has performed discharge medication reconciliation for this patient. The patient's discharge medication list was reviewed for discrepancies and discrepancies were resolved. Medications at Discharge Home Medications atorvastatin 40 mg tablet 40 mg PO QHS cholesterol 02/22/16 clopidogrel 75 mg tablet 75 mg PO DAILY BLOOD THINNER 02/22/16 multivitamin with folic acid 400 mcg tablet 1 tab PO DAILY supplement 02/22/16 albuterol sulfate 90 mcg/actuation aerosol inhaler 2 puff inhalation BID PRN shortness of breath or wheezing 03/16/18 cholecalciferol (vitamin D3) 25 mcg (1,000 unit) tablet 2,500 unit PO DAILY SUPPLEMENT 10/09/18 furosemide 40 mg tablet 40 mg PO DAILY FLUID RETENTION #90 tabs 01/27/22 albuterol sulfate 2.5 mg/3 mL (0.083 %) solution for nebulization 2.5 mg inhalation Q4H PRN shortness of breath or wheezing 05/28/22 ipratropium 0.5 mg-albuterol 3 mg (2.5 mg base)/3 mL nebulization soln 3 ml inhalation Q6H PRN shortness of breath 05/28/22 carvedilol 12.5 mg tablet 12.5 mg PO BID CHOLESTEROL #180 tabs 04/27/23 duloxetine 30 mg capsule,delayed release 30 mg PO BID pain 08/17/23 pramipexole 1.5 mg tablet 1.5 mg PO QHS restless leg syndrome 08/18/23 diclofenac sodium 1 % topical gel 1 inch topical DAILY PRN unknown 09/03/23 aspirin 81 mg tablet,delayed release 81 mg PO BREAKFAST 30 days #30 tabs 09/09/23 budesonide 0.5 mg/2 mL suspension for nebulization 0.25 mg inhalation BID 30 days #0 mL 09/09/23 dexamethasone 2 mg tablet See Rx Instructions .Route .COMPLEX #12 tabs 09/09/23 dextromethorphan-guaifenesin 30 mg-600 mg tablet extended [id number] hr (Mucinex DM) 2 tab PO BID 7 days #0 tabs 09/09/23 ferrous sulfate 325 mg (65 mg iron) tablet (FeroSul) 325 mg PO QODAY@LUNCH #0 tabs 09/09/23 insulin glargine 100 unit/mL (3 mL) subcutaneous pen (Lantus Solostar U-100 Insulin) 15 unit (0.15 mL) subcut DAILY #15 mL 09/09/23 insulin lispro 100 unit/mL subcutaneous pen (Humalog KwikPen (U-100) Insulin) 10unit (0.1 mL) subcut TIDAC #0 mL 09/09/23 insulin lispro 100 unit/mL subcutaneous pen (Humalog KwikPen (U-100) Insulin) See Protocol subcut ACHS #0 mL 09/09/23 pantoprazole 40 mg tablet,delayed release 40 mg PO DAILY 30 days #30 tabs 09/09/23 polyethylene glycol 3350 17 gram oral powder packet 17 g PO DAILY #0 ea 09/09/23 sennosides 8.6 mg-docusate sodium 50 mg tablet (Stool Softener-Stimulant Laxative) 2 tab PO BID PRN constipation #0 tabs 09/09/23 losartan 50 mg tablet 25 mg (1/2 x 50 mg) PO DAILY BLOOD PRESSURE #90 tabs 09/12/23 09/12/23 1413 <Electronically signed by Rebecca Talbot> Date _ Rebecca Lombardo Signature (if applicable): Date CC: ~ Signed [facility] Work Phone: Consult note Author Juan Carlos Grant [facility] Note Date/Time January 01, 2025 3:58 pm [facility] Medical Records Department [address] [place] [address] [place] [address] Anesthesia Postop Eval I 01/01/257 MR#: [id number] Acct: [id number] Name: DICK ARTIS Rep #:[id number] : 1935 89 From: Juan Carlos Grant PCP: Dr. Viktoriya Manzo MD Status:REG S DC Y Race: C Location: [place] [address] Anesthesia: Postop Eval I Current Vital Signs Temperature: 97.8 F Pulse Rate: 70 Blood Pressure: 115/52 Respiratory Rate: 16 Pulse Ox: 98 Oxygen Delivery Method: Nasal Cannula Oxygen Flow Rate (L/min): 2 Assessment Airway patent: Yes Spontaneous unlabored respirations: Yes Mental status: Awake and Calm nausea: No Vomiting: No Anesthesia Complication: No Fluid Hydration Crystalloid volume administer (ml): 400 Total IV fluid infused: 400 Progress Note Anesthesia document: Postop Eval 1 completed: Yes 01/01/251557 <Electronically signed by Juan Carlos Grant > Date _ Juan Carlos Lombardo Signature: Date CC: ~ Signed [facility] Work Phone: Discharge summary Author Matthew Schuster [facility] September 03, 2023 12:52pm Note Date/Time September 03, 2023 11:29am [facility] Medical Records Department [address] [place] [address] Emergency Department Summary 09/03/23 MR#: [id number] Acct: [id number] Name: DICK ARTIS Rep #:[id number] : 1935 87 From: Matthew Schuster DO PCP: Dr. Mady Dunn MD Status:RE G ER Location: ED HPI History of Present Illness Chief Complaint: Back Narrative Narrative: 87-year-old female presenting with back pain which is not a new issue. She states she has had back pain for a very long time. She is seeing pain management for this. She has had 2 injections. She states he is going to be referred to a spinal surgeon in the future. Patient also states that she believes she is having a COPD exacerbation. Patient recently admitted for COVID-19 and was discharged home. She is now wearing 2 L at home which she did not wear before she came into the hospital. Patient was on steroids but is no longer. She saw her PCP yesterday and had some labs drawn and x-ray. She was going to start on prednisone send but came to the emergency room due to worsening back pain. This is on the lower back on the right side. States radiates into the right leg. Patient has no fevers or chills at home. She states that she did not have any symptoms when she had COVID-19 and only was hypoxic. Denies chest pain. She is not nauseous or vomiting. [facility] Medical History Bilateral carotid artery stenosis Chronic kidney disease Claudication Diverticulosis Dyslipidemia Essential hypertension History of COPD History of TIA (transient ischemic attack) Leg edema Limb weakness Muscle spasm of left shoulder area Neck and back pain PAD (peripheral artery disease) Renal cyst RLS (restless legs syndrome) Shortness of breath Shoulder pain TIA (transient ischemic attack) Vertigo Home Medications atorvastatin 40 mg tablet 40 mg PO QHS cholesterol 02/22/16 [History Last Taken 09/02/23] clopidogrel 75 mg tablet 75 mg PO DAILY BLOOD THINNER 02/22/16 [History Last Taken 09/02/23] multivitamin with folic acid 400 mcg tablet 1 tab PO DAILY supplement 02/22/16 [History Last Taken 09/02/23] spironolactone 25 mg tablet 25 mg PO DAILY FLUID RETENTION 02/22/16 [History Last Taken 06/19/23] albuterol sulfate 90 mcg/actuation aerosol inhaler 2 puff inhalation BID PRN shortness of breath or wheezing 03/16/18 [History Last Taken 09/02/23] cholecalciferol (vitamin D3) 25 mcg (1,000 unit) tablet 2,500 unit PO DAILY SUPPLEMENT 10/09/18 [History Last Taken 09/02/23] furosemide 40 mg tablet 40 mg PO DAILY FLUID RETENTION #90 tabs 01/27/22 [Rx Last Taken 09/02/23] albuterol sulfate 2.5 mg/3 mL (0.083 %) solution for nebulization 2.5 mg inhalation Q4H PRN shortness of breath or wheezing 05/28/22 [History Last Taken 09/02/23] ipratropium 0.5 mg-albuterol 3 mg (2.5 mg base)/3 mL nebulization soln 3 ml inhalation Q6H PRN shortness of breath 05/28/22 [History Last Taken 09/02/23] budesonide 0.5 mg/2 mL suspension for nebulization 0.25 mg inhalation TID PRN shortness of breath 12/06/22 [History Last Taken 09/02/23] carvedilol 12.5 mg tablet 12.5 mg PO BID CHOLESTEROL #180 tabs 04/27/23 [Rx Last Taken 09/02/23] losartan 50 mg tablet 50 mg PO DAILY BLOOD PRESSURE #90 tabs 08/01/23 [Rx Last Taken 09/02/23] duloxetine 30 mg capsule,delayed release 30 mg PO BID pain 08/17/23 [History Last Taken 09/02/23] pramipexole 1.5 mg tablet 1.5 mg PO QHS restless leg syndrome 08/18/23 [History Last Taken 09/02/23] dexamethasone 6 mg tablet 6 mg PO DAILY #7 tabs 08/20/23 [Rx Last Taken Unknown] diclofenac sodium 1 % topical gel topical 09/03/23 [History Last Taken Unknown] prednisone 10 mg tablet 10 mg PO DAILY 09/03/23 [History Last Taken Unknown] Allergy/AdvReac Type Severity Reaction Status Date / Time lisinopril Allergy edema Verified 09/03/23 09:41 aspirin AdvReac Upset Verified 09/03/23 09:41 Stomach Family History Mother Heart disease Surgical History History of basal cell carcinoma excision History of carotid angioplasty History of kidney stones History of thyroid surgery History of total hysterectomy Social History household members: none housing: house Smoking Status: Former smoker how long ago did patient quit smokin years ago alcohol intake: current alcohol intake frequency: holidays/special occasions only details: rare substance use type: does not use caffeine: Yes Type: coffee Number of servings: 1 ROS ROS ED Constitutional Constitutional ED: Denies chills, fever(s) or sweats Eyes Eyes: Denies blurry vision or change in vision ENT ENT ED: Denies ear pain or sore throat Cardiovascular Cardiovascular: Denies chest pain, palpitations or racing heartbeat Respiratory/Chest Respiratory/Chest: Reports dyspnea and dyspnea on exertion; Denies cough or sputum Gastrointestinal Gastrointestinal: Denies abdominal pain, constipation, diarrhea, nausea or vomiting Genitourinary Genitourinary ED: Denies dysuria, hematuria or urinary frequency Musculoskeletal Musculoskeletal: Reports back pain; Denies arthralgias, myalgias or neck pain Integumentary Denies abscess, Abrasions or rash Neurologic Neurologic: Denies headache(s), paresthesias or weakness Psychiatric Psychiatric: Denies anxiety, depression, suicidal ideation or suicidal thoughts Endocrine Endocrinology: Denies polydipsia or polyuria EXAM Physical Exam Const Vital Signs: 09/03/23 09:37 09/03/23 10:07 09/03/23 11:05 Temperature 97.6 F L Temperature Source Temporal Pulse Rate 110 H 93 Respiratory Rate 26 H 30 H Blood Pressure 146/100 H 113/55 L Blood Pressure Mean 115 74 Pulse Ox 92 96 Oxygen Delivery Method Nasal Cannula Room Air Nasal Cannula Oxygen Flow Rate (L/min) 2 09/03/23 11:43 09/03/23 12:37 Temperature 97.2 F L Temperature Source Pulse Rate 97 99 Respiratory Rate 28 H 24 H Blood Pressure 103/51 L 115/66 Blood Pressure Mean 68 82 Pulse Ox 95 92 Oxygen Delivery Method Nasal Cannula Oxygen Flow Rate (L/min) 2 Positive well nourished General Appearance ED: NAD; Negative for pallor HEENT Reports dry mucous membranes Mouth ED: Yes dry mucous membranes Mouth: dry mucous membranes Eyes PERRL and EOMs intact bilaterally Chest Wall inspection of chest normal Resp Resp Narrative: Tachypneic. Scattered wheezes. Cardio regular rate and regular rhythm GI normal to inspection, nondistended, normoactive bowel sounds Neuro oriented x3 and CN's II-XII intact bilaterally Sensorium / Orientation: alert Psych mental status grossly normal Skin no rashes or lesions noted General Skin Exam: Negative for jaundice or pallor MDM MDM MDM Narrative Medical decision making narrative: Patient presenting with concern for COPD exacerbation. She recently had COVID. She is not on any steroids currently. She is given breathing treatments and Solu-Medrol here in the ED. Chest x-ray will be obtained to rule out pneumonia. Differential also includes CHF so we will obtain a BMP. CBC to assess white blood cell count, hemoglobin, platelets. BMP to assess renal function, electrolytes, glucose. BNP to assess for CHF. Patient was given fentanyl 25 mcg to help with pain. She was given Zofran for nausea. Patient currently on her 2 L at 96%. CBC unremarkable. BMP shows creatinine of 1.23. BUN 54. Electrolytes unremarkable. Glucose 184 without anion gap. BNP 210. Chest x-ray on my interpretation does not show anything new or acute. Radiology interprets this as improving infiltrate. High-sensitivity troponin came back [id number]. Discussed with hospitalist regarding this who did speak with cardiology (Dr. Thompson) who did not believe he needed a heparin drip. She does not have any chest pain and she denies having had any chest pain. Patient was given 324 mg of aspirin. She was given a [place] for her pain in her lower back. She is admitted to the hospitalist stable condition. Impression: 1. NSTEMI 2. COPD exacerbation 3. Back pain 4. Debility Lab Data Attestation: I reviewed the patient's lab results. Labs: Laboratory Results - last 24 hr 09/03/23 09:45 WBC 8.4 RBC 3.29 L Hgb 10.2 L Hct 32.3 L MCV 98.2 MCH 31.0 MCHC 31.6 L RDW Std Deviation 59.6 H RDW Coeff of Ha 16.4 H Plt Count 183 MPV 10.5 Immature Gran % (Auto) 1.300 H Neut % (Auto) 78.5 H Lymph % (Auto) 11.8 L [place] % (Auto) 6.5 Eos % (Auto) 1.7 Baso % (Auto) 0.2 Absolute Neuts (auto) 6.6 Absolute Lymphs (auto) 0.99 Nucleated RBC % 0 Sodium 140 Potassium 4.8 Chloride 107 Carbon Dioxide 31.0 Anion Gap 2 L BUN 54 H Creatinine 1.23 H Estim Creat Clear Calc 30.31 Est GFR (MDRD) Af Amer 53 L Est GFR (MDRD) Non-Af 44 L BUN/Creatinine Ratio 43.9 H Glucose 184 H Calcium 9.3 Troponin I High Sens 1220 H* B-Natriuretic Peptide 210.1 H Radiography Diagnostic Testing: Clinical Impression(s) from Imaging Studies Chest X-Ray 09/03/23 10:25 IMPRESSION: Improving right middle lobe and lingular pneumonia/atelectasis. Electronically Signed: Min Senior MD at 10:50 EST , Discharge Plan Triage Chief Complaint: Back ED Provider: Matthew Schuster Dx/Rx/DC Orders Prescriptions: No Action cholecalciferol (vitamin D3) 1,000 unit tablet 2,500 unit PO DAILY albuterol sulfate 2.5 mg /3 mL (0.083 %) solution for nebulization 2.5 mg inhalation Q4H PRN (Reason: shortness of breath or wheezing) ipratropium-albuterol 0.5 mg-3 mg(2.5 mg base)/3 mL solution for nebulization 3 ml inhalation Q6H PRN (Reason: shortness of breath) budesonide 0.5 mg/2 mL suspension for nebulization 0.25 mg inhalation TID PRN (Reason: shortness of breath) duloxetine 30 mg capsule,delayed release(DR/EC) 30 mg PO BID atorvastatin 40 MG tablet 40 mg PO QHS clopidogrel 75 MG tablet 75 mg PO DAILY spironolactone 25 MG tablet 25 mg PO DAILY multivitamin with folic acid 1 TABLET tablet 1 tab PO DAILY albuterol sulfate 90 mcg/actuation HFA aerosol inhaler 2 puff INHALATION BID PRN (Reason: shortness of breath or wheezing) pramipexole 1.5 mg tablet 1.5 mg PO QHS dexamethasone 6 mg tablet 6 mg PO DAILY Qty: 7 0RF Hold Instructions: duplicate Patient Comments: states was to start this am prednisone 10 mg tablet 10 mg PO DAILY Patient Comments: pt was supposed to start this morning, was not able to diclofenac sodium 1 % gel TOPICAL Patient Comments: pt using, but unaware of directions furosemide 40 mg tablet 40 mg PO DAILY Qty: 90 3RF Hold Instructions: Hold for 2 days. carvedilol 12.5 mg tablet 12.5 mg PO BID Qty: 180 4RF Rx Instructions: must administer with a meal/food losartan 50 mg tablet 50 mg PO DAILY Qty: 90 3RF Primary Care Provider: Mady Dunn Referrals: Mady Dunn MD [Primary Care Provider] - What to do if you have Problems For any increased pain, shortness of breath, bleeding, nausea or vomiting, chestpain, or any unexpected problems, contact your Primary Care Provider. Call [facility] ([phone]) or report to the closest Emergency Room. Call 911 if necessary. 09/03/23 1252 <Electronically signed by Matthew Schuster DO> Cosigner Signature (if applicable): CC: Dr. Mady Dunn MD ~ Signed [facility] Work Phone: Discharge summary Author Juan Esteves [facility] September 12, 2023 2:04pm Note Date/Time September 12, 2023 2:04pm [facility] Medical Records Department [address] [place] [address] Discharge Summary 09/12/23 1342 MR#: [id number] Acct: [id number] Name: DICK ARTIS Rep #:[id number] : 1935 87 From: Juan Bee PCP: Dr. Mady Dunn MD Status:AD M IN [facility] Providers Date of Admission: 09/03/23 Date of Discharge: 09/12/23 Primary Care Physician: Dr. Mady Dunn MD Consultations 09/03/23 13:29 Consult: Cardiology Routine Consulting Provider: Juvenal Thompson Reason for Consult: NSTEMI EMERGENT Consult: No Notified: Yes Date Notified: 09/03/23 Time Notified: 13:17 Method of Notification: Verbal 09/07/23 12:12 Consult: Nephrology Routine Consulting Provider: Alisia Lawrence Reason for Consult: BERNARDO on CKD, hyperkalemia, diuretics DCed EMERGENT Consult: No Notified: Yes Date Notified: 09/07/23 Time Notified: 12:12 Method of Notification: Verbal Reason For Visit: NON-STEMI, EXACERBATION OF COPD, INTRACTABLE RIGHT Diagnosis Discharge Diagnosis (1) Hyperkalemia: Status: Acute Code(s): E87.5 - Hyperkalemia (2) CKD (chronic kidney disease), stage III: Status: Chronic Code(s): N18.30 - Chronic kidney disease, stage 3 unspecified (3) Acute hypoxic respiratory failure: Status: Acute Code(s): J96.01 - Acute respiratory failure with hypoxia Plan 1. Acute myocardial injury probably secondary to hypoxia from exacerbation of COPD and bilateral carotid stenosis, non-STEMI ruled out.: Patient is being admitted in PCU. 2D echo shows EF 70% with no regional wall motion abnormalities therefore does not seem acute MA. Normal RV systolic function, normal left and right atria. Normal mitral valve, mild TR, PASP 30 mmHg. Patient had high troponin 1220, 1240 and 1161. Previous troponins were negative. The patient was evaluated by siding coreboard inspector and felt that it was not non-STEMI but increased cardiac demand from heart failure and COPD exacerbation. Advised to continue home medications for chronic HFpEF, Coreg, losartan and spironolactone. Lasix as needed. 09/08: Lasix, losartan and spironolactone are on hold due to BERNARDO. Patient on baby aspirin and Plavix. Patient does not have chest pain. Manager Logistic has signed off on 09/04. Did not feel that she has MA due to atherosclerotic stenosis but due to heart failure and increased demand, type II. 09/09: Lasix 20 mg IV started 1 dose and probably home dose from tomorrow AM. 09/10: Home dose Lasix 40 mg resumed. Monitor electrolytes. 09/11: Patient discharged on Lasix 40 mg daily and low-dose losartan. 2. Acute hypoxic and hypercarbic combined respiratory failure due to acute COPDexacerbation due to multifocal pneumonia from influenza A. Early bacterial secondary infection:-patient is on aerosol treatments and is receiving IV Decadron, monitor pulse ox. Continue PT and OT 09/06/2023: Acute hypoxic respiratory failure due to COPD exacerbation and evolving right lower lobe, right upper lobe and left lower lobe multifocal pneumonia: Patient required 8 L of high flow oxygen in the morning. As per the nursing staff, she was also coughing was wet, tannish colored expectorate yesterday but not able to bring up any phlegm today. Repeat chest x-ray PA and lateral was done and individually reviewed. It shows evolving right lower lobe infiltrate, right upper lobe and left lower lobe infiltrate consistent with multifocal pneumonia. Started on IV Zosyn to cover for gram-positive, gram-negative and anaerobes. Pneumonia workup ordered. Discussed with the patient'sdaughter near the bedside. Patient is being managed on scheduled bronchodilator, steroid, Mucinex, incentive spirometry and Pep. BiPAP as needed 09/07: Patient got short of breath yesterday and continued overnight with increased oxygen requirement. ABG showed pH 7.33/pCO2 51/O2 69 seems on 7 L of oxygen. Patient was given Ativan 0.5 mg so that she can tolerate BiPAP. Influenza A, subtype H3 positive. Started on Tamiflu. Low-dose mirtazapine ordered from night. 09/08: Subjectively and objectively, shortness of breath/dyspnea has improved. Oxygen requirement improved from BiPAP to nasal cannula 4 L. Urinary antigens are negative. Continue above antibiotic. 09/09: Respiratory status is much improved. On 1 L of oxygen. Advised to continue incentive spirometry and PEP for 1 week 09/10: Patient today on 4 L of oxygen. 09/11: Repeat chest x-ray was done which shows no significant interstitial edema. Shows poor inspiration with bibasilar atelectasis. Normal mediastinum and hilar. Will keep Lasix 40 mm daily and aggressive bronchopulmonary hygiene. #3 spinal stenosis with right radicular pain and debility- PT and OT, patient remains on gabapentin, IV Decadron, and narcotics as needed for pain, again she is a poor surgical candidate to have any surgery done at this institution due toher comorbidities. Hospitalist colleague Dr. Noble Lynch discussed with the patient's son and advised to follow-up in tertiary care to spine surgeon to evaluate for surgery. 09/06: Patient on IV dexamethasone, decreased to 4 mg every 8 hourly 09/07: Decrease IV dexamethasone to 2 mg every 12 hourly. 09/11: Patient discharged on dexamethasone tapering dose. 5. Hypotension: Patient blood pressure in a.m. was 87/48 and Coreg was held. Later on BP improved to 118/85 and had Lasix, Aldactone and Cozaar which broughtdown the blood pressure down again 89/35, 90/32. Discussed with the nursing staff, space out all Lasix and Cozaar. Cozaar dose decreased 25 mg daily and switch to the evening time. 09/06: Blood pressure was also borderline but carvedilol dose decreased to 6.25 mg twice daily. 09/09: Blood pressure fluctuates. BP morning 154/55 currently 105/51 probably due to morning medication of carvedilol. 09/12: Hypotension has resolved. 6. BERNARDO and hyperkalemia probably due to diuretic, spironolactone and potassium supplement: Patient on furosemide, potassium supplement and spironolactone whichis temporarily held. Her baseline creatinine about 1.2 increased to 1.76. IV fluid low-dose 50 mill per hour for 1 L. Repeat labs tomorrow AM. 09/07: Creatinine seems better creatinine 1.5 BUN 90. Serum potassium 6.0. Repeat BMP ordered and pending. 09/08: Serum potassium 5.4. BUN/creatinine 68/1.31. Shows improvement. 09/09: Creatinine 1.37. Continue to hold losartan and spironolactone. Potassium5.1. 09/11: Creatinine 1.24. Potassium level normal. 09/12: Creatinine 1.03 BUN 44. Losartan 25 mg daily started. Lasix 40 mg daily. Spironolactone discontinued as it was held during the hospital stay. Serum potassium 4.4. Serum sodium 142. 7. Severe anemia with history of chronic anemia from CKD/anemia of chronic disease: Hemoglobin decreased from 8.5-7.5. Her baseline creatinine runs between 9 to 10 g. Will discontinue heparin subcu. H&H at 8 PM and if less than 7 g will need transfusion. 09/09: Hemoglobin improved to 8.3. 09/10: Hemoglobin 7.7. Her iron studies from August 2022 shows ferritin 640, iron 95, TIBC 180 and iron saturation 52%. Consistent with anemia of chronic disease. 09/11: Hemoglobin is low. Hold baby aspirin if hemoglobin less than 8 g. Anxiety and depression: Patient had agitation to 3 days ago. Started on mirtazapine 15 mg daily. 09/10: Patient was more lethargic and weak. Dose of mirtazapine decreased to 7.5mg daily. Ativan dose decreased to 0.25 mg IV as needed if needed for BiPAP. Gabapentin dose decreased to 100 mg 3 times daily DVT prophylaxis: Patient was on heparin 500 subcutaneous twice daily. Had increased bleeding locally after subcu injection. Hemoglobin also dropped as mentioned above. Therefore heparin subcu DVT dose discontinued. Patient on aspirin and Plavix. Discharge medication reconciliation done. Discharge follow-up instructions completed. Discharge process discussed with the patient and all questions wereanswered to patient's satisfaction. Discharge to SNF. Follow with PCP in 1 to 2 weeks Total time spent, exact 35 minutes on discharge meds reconciliation, examination, coordination of care with nurses and ancillary staff, review of imaging and blood test and discussion with the patient on follow-up instructions. Microbiology Past 72 Hours 09/09/23 15:50 Stool Stool Occult Blood (ROYAL) - Final 09/06/23 14:39 Blood Culture (Wb) - Right Forearm Blood Culture - Preliminary No growth in 48 hours. 09/06/23 14:36 Blood Culture (Wb) - Right Hand Blood Culture - Preliminary No growth in 48 hours. Laboratory Results 09/10/23 10:25: POC Glucose 149 H 09/10/23 11:46: POC Glucose 191 H 09/10/23 16:22: POC Glucose 120 H 09/10/23 22:45: POC Glucose 131 H 09/11/23 04:30: WBC 6.3, RBC 2.36 L, Hgb 7.7 L, Hct 24.7 L, MCV 104.7 H, MCH 32.6 H, MCHC 31.2 L, RDW Std Deviation 65.4 H, RDW Coeff of Ha 17.2 H, Plt Count 131 L, MPV 10.6, Immature Gran % (Auto) 10.900 H, Neut % (Auto) 72.1 H, Lymph % (Auto) 9.0 L, [place] % (Auto) 4.8, Eos % (Auto) 2.9, Baso % (Auto) 0.3, Absolute Neuts (auto) 4.5, Absolute Lymphs (auto) 0.56 L, Nucleated RBC % 0.5, Differential Comment SCANNED, Diff Path Review November foll, Anisocytosis 2+, [id number] H, Potassium 4.1, Chloride 112 H, Carbon Dioxide 32.0, Anion Gap 2 L, BUN 58H, Creatinine 1.24 H, Estim Creat Clear Calc 29.64, Est GFR (MDRD) Af Amer 53 L,Est GFR (MDRD) Non-Af 44 L, BUN/Creatinine Ratio 46.8 H, Glucose 83, Calcium 8.4L 09/11/23 07:39: POC Glucose 73 L Medications at Discharge Home Medications atorvastatin 40 mg tablet 40 mg PO QHS cholesterol 02/22/16 clopidogrel 75 mg tablet 75 mg PO DAILY BLOOD THINNER 02/22/16 multivitamin with folic acid 400 mcg tablet 1 tab PO DAILY supplement 02/22/16 albuterol sulfate 90 mcg/actuation aerosol inhaler 2 puff inhalation BID PRN shortness of breath or wheezing 03/16/18 cholecalciferol (vitamin D3) 25 mcg (1,000 unit) tablet 2,500 unit PO DAILY SUPPLEMENT 10/09/18 furosemide 40 mg tablet 40 mg PO DAILY FLUID RETENTION #90 tabs 01/27/22 albuterol sulfate 2.5 mg/3 mL (0.083 %) solution for nebulization 2.5 mg inhalation Q4H PRN shortness of breath or wheezing 05/28/22 ipratropium 0.5 mg-albuterol 3 mg (2.5 mg base)/3 mL nebulization soln 3 ml inhalation Q6H PRN shortness of breath 05/28/22 carvedilol 12.5 mg tablet 12.5 mg PO BID CHOLESTEROL #180 tabs 04/27/23 duloxetine 30 mg capsule,delayed release 30 mg PO BID pain 08/17/23 pramipexole 1.5 mg tablet 1.5 mg PO QHS restless leg syndrome 08/18/23 diclofenac sodium 1 % topical gel 1 inch topical DAILY PRN unknown 09/03/23 aspirin 81 mg tablet,delayed release 81 mg PO BREAKFAST 30 days #30 tabs 09/09/23 budesonide 0.5 mg/2 mL suspension for nebulization 0.25 mg inhalation BID 30 days #0 mL 09/09/23 dexamethasone 2 mg tablet See Rx Instructions .Route .COMPLEX #12 tabs 09/09/23 dextromethorphan-guaifenesin 30 mg-600 mg tablet extended [id number] hr (Mucinex DM) 2 tab PO BID 7 days #0 tabs 09/09/23 ferrous sulfate 325 mg (65 mg iron) tablet (FeroSul) 325 mg PO QODAY@LUNCH #0 tabs 09/09/23 insulin glargine 100 unit/mL (3 mL) subcutaneous pen (Lantus Solostar U-100 Insulin) 15 unit (0.15 mL) subcut DAILY #15 mL 09/09/23 insulin lispro 100 unit/mL subcutaneous pen (Humalog KwikPen (U-100) Insulin) 10unit (0.1 mL) subcut TIDAC #0 mL 09/09/23 insulin lispro 100 unit/mL subcutaneous pen (Humalog KwikPen (U-100) Insulin) See Protocol subcut ACHS #0 mL 09/09/23 pantoprazole 40 mg tablet,delayed release 40 mg PO DAILY 30 days #30 tabs 09/09/23 polyethylene glycol 3350 17 gram oral powder packet 17 g PO DAILY #0 ea 09/09/23 sennosides 8.6 mg-docusate sodium 50 mg tablet (Stool Softener-Stimulant Laxative) 2 tab PO BID PRN constipation #0 tabs 09/09/23 losartan 50 mg tablet 25 mg (1/2 x 50 mg) PO DAILY BLOOD PRESSURE #90 tabs 09/12/23 Physical Exam Narrative Seen and examined. Shortness of breath is better. Patient on 4 L of oxygen for last 3 days. Chestx- ray shows interstitial markings but does not look like mediastinal or hilar edema/interstitial edema. Subjectively patient feels better. Denies chest pain pressure or tightness. Completed Tamiflu for influenza A yesterday. Physical exam General: Awake, alert and oriented x 3. HEENT: Atraumatic, PERRLA, EOMI, Normocephalic Oral: Oral mucosa moist. Neck: Supple, No JVD, Negative Carotid Bruits Chest wall/Lungs: Air entry diminished in bilateral lung bases. Mild coarse crepitation in lung bases for last 3 to 4 days. Cardiovascular: Regular rate, Regular Rhythm, Normal S1, Normal S2, No M/G/R Abdomen: Bowel Sounds Present, Soft, Non Tender, Non-Distended : No dysuria. No renal angle tenderness. No suprapubic tenderness. Extremities: Mild bilateral lower leg pitting edema, Capillary Refill Less than 3 Seconds Skin: No rashes, No breakdown Musculoskeletal: No Tenderness to Palpation of Joints or Extremities. ROM restricted. 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 Neurological: Cranial nerves II-XII grossly intact, DTR 2+/4. No acute focal neurological deficit. Psych/Mental Status: Flat affect. Weight / BMI Weight Weight: 146 lb 4.815 oz Body Mass Index (BMI) 26.7 ABG / Lab / Microbiology Data 09/11/23 04:30 09/12/23 06:30 Laboratory: Laboratory Results - last 24 hr 09/11/23 16:12: POC Glucose 182 H 09/11/23 22:37: POC Glucose 132 H 09/12/23 06:30: Sodium 142, Potassium 4.4, Chloride 112 H, Carbon Dioxide 27.0, BUN 44 H, Creatinine 1.03 H, Estim Creat Clear Calc 35.68, Est GFR (MDRD) Af Amer 65, Est GFR (MDRD) Non-Af 54 L, BUN/Creatinine Ratio 42.7 H, Glucose 82, Calcium 8.7, Phosphorus 2.5, Albumin 1.6 L 09/12/23 08:08: POC Glucose 91 09/12/23 11:26: POC Glucose 159 H Microbiology: Microbiology 09/06/23 14:39 Blood Culture (Wb) - Right Forearm Blood Culture - Final No growth in 5 days. 09/06/23 14:36 Blood Culture (Wb) - Right Hand Blood Culture - Final No growth in 5 days. 09/09/23 15:50 Stool Stool Occult Blood (ROYAL) - Final 09/07/23 18:20 Urine Catheter - Turner Legionella Antigen - Final 09/07/23 18:20 Urine Catheter - Turner Streptococcus pneumoniae Antigen (M - Final 09/06/23 15:50 Mucosa - Nose Respiratory Panel (PCR) - Final Influenza A (Subtype H3) Meaningful Use Info Meaningful Use Diagnoses (Choose all that apply): None applicable Discharge Plan Admission Admit Date/Time: 09/03/23 13:07 Primary Reason for Your Visit: Acute hypoxic respiratory failure, pneumonia Attending Provider: Juan Esteves Primary Care Provider: Mady Dunn Consulting Providers: Juvenal Thompson; Noble Reynolds; Alisia Lawrence Instructions Additional Instructions / Restrictions: Hold baby aspirin if platelet count drops less than 50,000 or hemoglobin less than 8 g% Discharge Orders/Prescriptions Prescriptions: New polyethylene glycol 3350 17 gram Powder In Packet 17 g PO DAILY Qty: 0 0RF sennosides-docusate sodium [Stool Softener-Stimulant Laxat] 8.6-50 mg Tablet 2 tab PO BID PRN (Reason: constipation) Qty: 0 0RF pantoprazole 40 mg Tablet,Delayed Release (Dr/Ec) 40 mg PO DAILY 30 Days Qty: 30 0RF ferrous sulfate [FeroSul] 325 mg (65 mg iron) Tablet 325 mg PO QODAY@LUNCH Qty: 0 0RF Mucinex DM 30-600 mg Tablet Extended Release 12 Hr 2 tab PO BID 7 Days Qty: 0 0RF aspirin 81 mg Tablet,Delayed Release (Dr/Ec) 81 mg PO BREAKFAST 30 Days Qty: 30 2RF insulin lispro [Humalog KwikPen Insulin] 100 unit/mL Insulin Pen See Protocol subcut ACHS Qty: 0 0RF Protocol: 4. Sliding Scale Insulin High-Med Dosing Condition: 150-199 mg/dl = 2 units Condition: 200-259 mg/dl = 4 units Condition: 260-324 mg/dl = 6 units Condition: 325-374 mg/dl = 8 units Condition: 375-409 mg/dl = 10 units Condition: 410-449 mg/dl = 11 units Condition: Greater than 449 call physician Protocol Text: - Use for Total Daily Dose of Insulin 56-80 units - Patient who are insulin resistant or septic HIGH MEDIUM DOSING ALGORITHM insulin lispro [Humalog KwikPen Insulin] 100 unit/mL Insulin Pen 10 unit subcut TIDAC Qty: 0 0RF insulin glargine [Lantus Solostar U-100 Insulin] 100 unit/mL (3 mL) insulin pen 15 unit subcut DAILY Qty: 15 2RF Rx Instructions: Hold if glucose less than 130 mg/dl dexamethasone 2 mg tablet See Rx Instructions .ROUTE .COMPLEX Qty: 12 0RF Rx Instructions: 2 mg orally twice daily for 3 days and then 2 mg once daily for 3 days, then 1 mg for 6 days and then stop Continued cholecalciferol (vitamin D3) 1,000 unit tablet 2,500 unit PO DAILY albuterol sulfate 2.5 mg /3 mL (0.083 %) solution for nebulization 2.5 mg inhalation Q4H PRN (Reason: shortness of breath or wheezing) ipratropium-albuterol 0.5 mg-3 mg(2.5 mg base)/3 mL solution for nebulization 3 ml inhalation Q6H PRN (Reason: shortness of breath) duloxetine 30 mg capsule,delayed release(DR/EC) 30 mg PO BID atorvastatin 40 MG tablet 40 mg PO QHS clopidogrel 75 MG tablet 75 mg PO DAILY multivitamin with folic acid 1 TABLET tablet 1 tab PO DAILY albuterol sulfate 90 mcg/actuation HFA aerosol inhaler 2 puff INHALATION BID PRN (Reason: shortness of breath or wheezing) pramipexole 1.5 mg tablet 1.5 mg PO QHS diclofenac sodium 1 % gel 1 inch TOPICAL DAILY PRN (Reason: unknown) Patient Comments: pt using, but unaware of directions furosemide 40 mg tablet 40 mg PO DAILY Qty: 90 3RF Hold Instructions: Hold for 2 days. carvedilol 12.5 mg tablet 12.5 mg PO BID Qty: 180 4RF Rx Instructions: must administer with a meal/food Changed budesonide 0.5 mg/2 mL suspension for nebulization 0.25 mg inhalation BID 30 Days Qty: 0 0RF losartan 50 mg tablet 25 mg PO DAILY Qty: 90 3RF Rx Instructions: Hold for SBP less than 130 mmHg Discontinued spironolactone 25 MG tablet 25 mg PO DAILY Hold Instructions: Hold until serum potassium drops to 4.0. dexamethasone 6 mg tablet 6 mg PO DAILY Qty: 7 0RF Hold Instructions: duplicate Patient Comments: states was to start this am prednisone 10 mg tablet 10 mg PO DAILY Patient Comments: pt was supposed to start this morning, was not able to Referrals / Follow Up: Shamir Delvalle DO [Med Staff - Active Staff] - Within 1 Month (Hypoxia, Pneumonia) Alisia Lawrence MD [Med Staff - Consulting] - Within 1 Month Mady Dunn MD [Primary Care Provider] - Juvenal Thompson MD [Med Staff - Active Staff] - Within 1 Month Disposition Disposition (needs filled in before D/C Order can be placed): [facility] Facility Charges/Coding Visit Charges Inpatient E&M: 87955 Disch Hosp >30min 09/12/23 1404 <Electronically signed by Juan Esteves MD> Cosigner Signature (if applicable): CC: Dr. Mady Dunn MD; Dr. Juan Esteves MD~ Signed [facility] Work Phone: Discharge summary Author [facility] Note Date/Time December 17, 2024 7:29a m [facility] Medical Records Department [address] [place] [address] Emergency Department Summary 12/17/24 MR#: [id number] Acct: [id number] Name: DICK ARTIS Rep #:[id number] : 1935 89 From: Tobias Garcia DO PCP: Dr. Viktoriya Manzo MD Status:REG E R Location: ED HPI History of Present Illness Chief Complaint: GI Bleed Informant: patient and family Narrative Narrative: Patient is a 89-year-old female with past medical history of hypertension hyperlipidemia chronic kidney disease and COPD who wears nasal cannula oxygen atbaseline. She states that she went to bed last night and then awoke around 3 inthe morning with sensation she had to use the restroom and then noticed that there was blood in her pants and up the lower portion of her back. She states she is on Plavix but denies Eliquis Coumadin or Xarelto use or history of bleeding disorder. She states she does have a mild amount of lower abdominal pain but otherwise does not have fever or dysuria. She states that she had a similar event happen 1 to 2 weeks ago but that the symptoms resolved and she didnot come to the hospital for evaluation. She reports it has been multiple yearssince her last colonoscopy. However this evening as the bout of GI bleeding occurred while sleeping and it is a repeat event she was brought in for evaluation [facility] Medical History History of chronic heart failure Cancer Thyroid disease Ambulates with cane History of renal disease TIA (transient ischemic attack) Acute diverticulitis Wears glasses Wears dentures Arthritis Low iron Anemia High cholesterol Migraine headache Restless legs Difficulty chewing History of diverticulitis Heartburn Gastric reflux Former smoker On home oxygen therapy Shortness of breath on exertion Chronic cough History of edema History of echocardiogram History of stress test Cardiology follow-up encounter Hypertension Chronic hypoxic respiratory failure History of diabetes mellitus History of hypertension Diverticulitis History of COPD COPD (chronic obstructive pulmonary disease) Anemia Chronic heart failure with preserved ejection fraction (HFpEF) Hyperlipidemia Right lumbar radiculopathy CKD (chronic kidney disease), stage III Hypertension Chronic kidney disease PAD (peripheral artery disease) Renal cyst History of TIA (transient ischemic attack) Bilateral carotid artery stenosis Claudication RLS (restless legs syndrome) Diverticulosis TIA (transient ischemic attack) Vertigo Leg edema Dyslipidemia Home Medications ?Medication ?Instructions ?Recorded ?Last Taken ?Type atorvastatin 40 mg tablet 40 mg PO QHS cholesterol 01/3011/27/24 History clopidogrel 75 mg tablet 75 mg PO DAILY BLOOD THINNER 02/22/16 11/28/24 History albuterol sulfate 90 mcg/actuation 2 puff inhalation Q 4H PRN 03/16/18 09/27/24 History aerosol inhaler shortness of breath or wheez ing pramipexole 1.5 mg tablet 1.5 mg PO QHS restless leg s yndrome 08/18/23 11/27/24 History polysaccharide iron complex 150 mg 150 mg PO DAILY sup plement 30 days 10/12/23 11/28/24 Rx iron capsule (Ferrex) #30 caps acetaminophen 500 mg tablet 1,000 mg PO Q6H PRN pain 0 02/14/24 Unknown History arformoterol 15 mcg/2 mL solution 15 mcg inhalation BI D breathing 02/14/24 11/28/24 History for nebulization duloxetine 20 mg capsule,delayed 60 mg PO DAILY mental health 02/14/24 11/28/24 History release spironolactone 25 mg tablet 25 mg PO DAILY diuretic 11/28/24 History cholecalciferol (vitamin D3) 125 125 mcg PO DAILY 30 d ays #30 caps 06/08/24 11/28/24 Rx mcg (5,000 unit) capsule furosemide 40 mg tablet 40 mg PO BID FLUID RETENTION 09/24/24 11/28/24 History pantoprazole 40 mg tablet,delayed 40 mg PO BID reflux 09/24/24 11/28/24 History release budesonide 0.5 mg/2 mL suspension 0.5 mg inhalation BI D breathing 11/28/24 11/28/24 History for nebulization carvedilol 25 mg tablet 25 mg PO BID 11/28/24 History magnesium oxide 400 mg PO DAILY 11/28/24 History potassium chloride 20 mEq/15 mL 20 meq PO DAILY 11/28/24 History oral liquid cetirizine 10 mg tablet (24Hour 10 mg PO DAILY 5 Unknown History Allergy) Allergy/AdvReac Type Severity Reaction Status Date / Time lisinopril Allergy edema Verified 12/17/24 04:43 aspirin AdvReac Upset Verified 12/17/24 04:43 Stomach Family History Mother Heart disease Surgical History History of thyroid surgery History of carotid angioplasty History of kidney stones History of basal cell carcinoma excision History of total hysterectomy Social History household members: none housing: house Smoking Status: Former smoker how long ago did patient quit smokin years ago alcohol intake: current alcohol intake frequency: holidays/special occasions only details: rare substance use type: does not use caffeine: Yes Type: coffee Number of servings: 1 ROS ROS ED Constitutional Constitutional ED: Denies chills or fever(s) ENT ENT ED: Reports rhinorrhea Cardiovascular Cardiovascular: Denies chest pain, palpitations or racing heartbeat Respiratory/Chest Respiratory/Chest: Reports cough; Denies dyspnea Gastrointestinal Gastrointestinal: Reports abdominal pain and melena; Denies diarrhea, nausea or vomiting Genitourinary Genitourinary ED: Denies dysuria Musculoskeletal Musculoskeletal: Denies back pain or myalgias Integumentary Denies rash Neurologic Neurologic: Denies headache(s) Hematologic/Lymphatic Hematologic/Lymphatic: Reports easy bleeding and easy bruising EXAM Physical Exam Const Vital Signs: 12/17/24 04:44 12/17/24 06:41 Temperature 97.7 F L Temperature Source Oral Pulse Rate 81 71 Respiratory Rate 20 H 19 H Blood Pressure 170/73 H 141/86 H Blood Pressure Mean 105 104 Pulse Ox 96 98 Oxygen Delivery Method Nasal Cannula Nasal Cannula Fraction of Inspired Oxygen (FIO2) 2 Positive well nourished, well developed and obese General Appearance ED: well developed; Negative for pallor Nutritional Appearance: obese HEENT HEENT Narrative: Normocephalic atraumatic There is cobblestoning noted in the posterior pharynx consistent with sinus drainage without airway edema or compromise No secondary findings in the posterior pharynx to suggest infection Eyes PERRL and EOMs intact bilaterally General Eye ED: Negative for pale conjunctiva or scleral icterus Neck supple Neck Narrative: No nuchal rigidity or meningeal signs Resp normal respiratory effort Resp Narrative: Breath sounds are diminished throughout with diffuse rhonchi No nasal flaring retractions tachypnea or accessory muscle use Cardio regular rate and regular rhythm Rate: other Other Details: Radial and carotid pulses are equal and symmetric GI non-distended and no masses GI Narrative: Abdomen is soft and nondistended with hyperactive bowel sounds. There is pain with palpation diffusely along the lower abdomen without voluntary guarding or rigidity or pulsatile mass No peritoneal signs Auscultation: normoactive bowel sounds Palpation: soft Narrative: Rectal exam shows nonbleeding nonthrombosed external hemorrhoids No anal fissure is noted No internal masses palpated Rectal tone is normal Stool is mucousy brown in color with streaks of bright red blood and is Hemoccult positive Extremity Extremity Narrative: +2-3 pitting edema to the bilateral lower extremities that is equal and symmetric Neuro oriented x3, CN's II-XII intact bilaterally and no sensory deficits noted Sensorium / Orientation: alert Motor Exam: strength 5/5 throughout Psych mental status grossly normal Skin no rashes or lesions noted Skin Narrative: Capillary refill is less than 3 seconds General Skin Exam: Negative for jaundice or pallor MDM MDM MDM Narrative Medical decision making narrative: Patient arrived to the ER hypertensive otherwise with stable vitals. She reported waking from sleep with bright red blood in her pants and up her back. There is concern for ruptured internal or external hemorrhoid versus anal fissure versus diverticular bleeding versus ischemic colitis. Patient also could have acute blood loss anemia. Laboratory studies show that her hemoglobintoday is 12.2 which is actually improved from November 28 when it was approximately 10. Platelet count is also increased from 131-237. In order to check for a potential cause of her GI bleed a CTA was obtained. This showed extensive colonic diverticulosis without obvious diverticulitis. There was no obvious signs of active bleeding either. And she had intestinal inflammation consistentwith colitis. The patient had no further episodes of bleeding while in the ER. She remains hemodynamically stable. I discussed the case with gastroenterology as patient reports she had a similar event 1 to 2 weeks ago. At this time as she is hemodynamically stable without need for blood transfusion and no further episodes of bleeding in the ER they feel that she can follow-up as an outpatientand there is no need for admission and emergent colonoscopy. This plan of care was discussed with patient and family and they are agreeable to it and thereforeshould be discharged at this time Please note her urine sample did show +2 bacteria but there are no white blood cells present in the sample and she does not have dysuria and therefore I feel this is most likely normal ting and there is no need for urine culture or antibiotics. History & Record Review Discussion w/independent historian: Patient and Family Lab Data Attestation: I reviewed the patient's lab results. Labs: Laboratory Results - last 24 hr 12/17/24 12/17/24 04:56 05:20 WBC 7.9 RBC 3.86 L Hgb 12.2 Hct 38.3 MCV 99.2 H MCH 31.6 MCHC 31.9 L RDW Std Deviation 50.2 H RDW Coeff of Ha 13.7 Plt Count 269 MPV 10.2 Immature Gran % (Auto) 0.900 Neut % (Auto) 71.2 H Lymph % (Auto) 14.4 L [place] % (Auto) 12.3 H Eos % (Auto) 0.9 Baso % (Auto) 0.3 Absolute Neuts (auto) 5.6 Absolute Lymphs (auto) 1.14 Nucleated RBC % 0 PT 13.0 INR 1.0 APTT 24.3 Sodium 144 Potassium 4.0 Chloride 98 Carbon Dioxide 32.5 H Anion Gap 13 BUN 52 H Creatinine 1.45 H Estim Creat Clear Calc 23.74 L Est GFR (MDRD) Non-Af 35 L BUN/Creatinine Ratio 35.9 H Glucose 110 H Calcium 9.0 Total Bilirubin 0.39 Direct Bilirubin 0.14 AST 20 ALT 11 Alkaline Phosphatase 75 Total Protein 7.0 Albumin 3.8 Globulin 3.1 Urine Color Yellow Urine Clarity Clear Urine pH 6.5 Ur Specific [place] 1.010 Urine Protein 15 H Urine Glucose (UA) Normal Urine Ketones Negative Urine Occult Blood 250 H Urine Nitrite Negative Urine Bilirubin Negative Urine Urobilinogen Normal Ur Leukocyte Esterase 100 H Urine RBC 5-10 SEEN Urine WBC 0-5 SEEN Ur Squamous Epith Cells 0-5 SEEN Urine Bacteria 2+ Urine Mucus 0 SEEN Radiography Diagnostic Testing: Clinical Impression(s) from Imaging Studies Abdomen/Pelvis CTA 12/17/24 05:04 IMPRESSION: 1. Diffuse colonic diverticulosis. 2. Moderate diffuse thickening of the colon, more prominent in the rectosigmoid colon, probably colitis without evidence of perforation or pneumatosis coli. 3. No CT evidence of active bleeding during the time of the exam. 4. Prior hysterectomy. 5. 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 6. Moderate chronic right renal atrophy. 7. Unchanged scattered right renal simple cysts with the largest measuring 4.3 cm. 8. Unchanged nodularity of the left adrenal gland. 9. Atherosclerotic, tortuous ectatic abdominal aorta. 10. Mild stenosis of the origins of the celiac, superior and inferior mesentericarteries. 11. Well-defined homogeneously enhancing 1.4 cm hemangioma in the segment 4 of the liver. 12. Unchanged small sliding hiatal hernia. 13. Diffuse thickening of the stomach suggestive of gastritis. 14. Mild osteopenia. 15. Mild diffuse spondylosis. 16. Mild chronic compression deformity of L1 vertebral body. Reading Location: [place] [address] Chest X-Ray 12/17/24 06:14 IMPRESSION: Bilateral basilar atelectatic pulmonary changes. Reading Location: [place] [address] 2 view chest x-ray as interpreted by the emergency medicine physician reveals bibasilar atelectasis without acute infiltrate pneumothorax or pleural effusion Management Discussion w/another healthcare provider: [employer] Discharge Plan Triage Chief Complaint: GI Bleed ED Provider: Tobias Garcia Dx/Rx/DC Orders Clinical Impression: Diverticulosis, Colitis, GI (gastrointestinal bleed), Hypertension, Hyperlipidemia, COPD (chronic obstructive pulmonary disease) Instructions: GI Bleeding Causes and Tests, ED Understanding Colitis, ED Diverticulosis Prescriptions: No Action acetaminophen 500 mg tablet 1,000 mg PO Q6H PRN (Reason: pain) arformoterol 15 mcg/2 mL solution for nebulization 15 mcg inhalation BID duloxetine 20 mg capsule,delayed release(DR/EC) 60 mg PO DAILY spironolactone 25 mg tablet 25 mg PO DAILY atorvastatin 40 MG tablet 40 mg PO QHS clopidogrel 75 MG tablet 75 mg PO DAILY albuterol sulfate 90 mcg/actuation HFA aerosol inhaler 2 puff INHALATION Q4H PRN (Reason: shortness of breath or wheezing) pramipexole 1.5 mg tablet 1.5 mg PO QHS cholecalciferol (vitamin D3) 125 mcg (5,000 unit) Capsule 125 mcg PO DAILY 30 Days Qty: 30 0RF carvedilol 25 mg tablet 25 mg PO BID magnesium oxide 400 mg magnesium capsule 400 mg PO DAILY potassium chloride 20 mEq/15 mL liquid 20 meq PO DAILY budesonide 0.5 mg/2 mL suspension for nebulization 0.5 mg inhalation BID polysaccharide iron complex [Ferrex 150] 150 mg iron Capsule 150 mg PO DAILY 30 Days Qty: 30 0RF furosemide 40 mg tablet 40 mg PO BID pantoprazole 40 mg Tablet,Delayed Release (Dr/Ec) 40 mg PO BID cetirizine [24Hour Allergy] 10 mg tablet 10 mg PO DAILY Primary Care Provider: Viktoriya Manzo Referrals: Viktoriya Manzo MD [Primary Care Provider] - Teodoro Real DO [Med Staff - Active Staff] - (Colonic diverticulosis/colitis/GI bleed) Activity Restrictions/Additional Instructions: Please contact Dr. Real's office this morning as they should be able to schedule an appointment for you tomorrow or later this week. If you develop severe abdominal pain a fever of 100.4 or higher or have persistent bleeding from your rectum or any further concerns please return to the ER for repeat evaluation. Print Language: Greenlandic Disposition Disposition: Home, Self Care What to do if you have Problems For any increased pain, shortness of breath, bleeding, nausea or vomiting, chestpain, or any unexpected problems, contact your Primary Care Provider. Call [facility] ([phone]) or report to the closest Emergency Room. Call 911 if necessary. 12/17/24 0729 <Electronically signed by Tobias Garcia DO> Cosigner Signature (if applicable): CC: Dr. Viktoriya Manzo MD ~ Signed [facility] Work Phone: Evaluation note* Diagnosis PAD (peripheral artery disease) (HCC)- Primary Peripheral vascular disease, unspecified [facility] Diagnosis Venous (peripheral) insufficiency- Primary Unspecified venous (peripheral) insufficiency Peripheral vascular disease (HCC) Peripheral vascular disease, unspecified Screening for nephropathy [facility] Peripheral vascular disease (HCC)- Primary Peripheral vascular disease, unspecified [facility] Diagnosis Peripheral vascular disease (HCC) Peripheral vascular disease, unspecified [facility] Diagnosis Renal mass- Primary Unspecified disorder of kidney and ureter [facility] Diagnosis 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 Renal mass Unspecified disorder of kidney and ureter [facility] Diagnosis Insomnia, unspecified type- Primary Encounter for immunization Need for other specified prophylactic vaccination against single bacterial disease Constipation, unspecified constipation type Primary hypertension Unspecified essential hypertension Stage 3a chronic kidney disease (HCC) Simple chronic bronchitis (HCC) Simple chronic bronchitis [facility] Diagnosis COPD, mild (HCC)- Primary Chronic airway obstruction, not elsewhere classified Allergic rhinitis, unspecified seasonality, unspecified trigger Former smoker Personal history of tobacco use, presenting hazards to health [facility] Diagnosis Venous (peripheral) insufficiency- Primary Unspecified venous (peripheral) insufficiency [facility] Diagnosis Venous (peripheral) insufficiency- Primary Unspecified venous (peripheral) insufficiency Peripheral vascular disease (HCC) Peripheral vascular disease, unspecified Stenosis of left carotid artery Occlusion and stenosis of carotid artery without mention of cerebral infarction [facility] Diagnosis Exercise-induced asthma Exercise induced bronchospasm 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) [facility] Stage 1 mild COPD by GOLD classification (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 documented in this encounter [facility] note* Diagnosis Restrictive lung disease- Primary Other diseases of lung, not elsewhere classified Chronic obstructive pulmonary disease, unspecified COPD type (HCC) Peripheral edema Edema documented in this encounter [facility] note* Diagnosis SOB (shortness of breath) Shortness of breath [facility] Diagnosis Renal mass- Primary Unspecified disorder of kidney and ureter 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 documented in this encounter [facility] note* Diagnosis Chronic obstructive pulmonary disease with acute exacerbation (HCC)- Primary Obstructive chronic bronchitis with exacerbation [facility] Diagnosis Onset Date Resolution Status Bilateral carotid artery stenosis chronic Dyslipidemia chronic Essential hypertension [facility] Work Phone: Evaluation note* Diagnosis COPD with exacerbation (HCC)- Primary Obstructive chronic bronchitis with exacerbation Opacity noted on imaging study Other nonspecific (abnormal) findings on radiological and other examinations of body structure Former cigarette smoker Personal history of tobacco use, presenting hazards to health Atelectasis Pulmonary collapse Need for influenza vaccination Need for prophylactic vaccination and inoculation against influenza documented in this encounter [facility] note* Diagnosis COPD with exacerbation (HCC)- Primary Obstructive chronic bronchitis with exacerbation Stage 1 mild COPD by GOLD classification ([facility]) Insomnia, unspecified type documented in this encounter [facility] note* Diagnosis Chronic obstructive pulmonary disease, unspecified [...] use of medication [facility]* Diagnosis COPD with exacerbation (HCC) Obstructive chronic bronchitis with exacerbation [facility]* Diagnosis Exercise-induced asthma Exercise induced bronchospasm Stage 1 mild COPD by GOLD classification (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 [facility]* Diagnosis Lymphedema of both lower extremities Stasis edema of both lower extremities [facility]* Diagnosis Onset Date Resolution Status Bilateral carotid artery stenosis chronic Dyslipidemia chronic Essential hypertension chron ic Shortness of breath [facility] Work Phone: Evaluation note* Diagnosis Left lower quadrant abdominal pain- Primary Diverticulitis Diverticulitis of colon (without mention of hemorrhage) documented in this encounter [facility] note* Diagnosis Chronic bilateral thoracic back pain- Primary Lumbar pain Lumbago Stasis edema of both lower extremities Lymphedema of both lower extremities Encounter for therapeutic drug monitoring Need for influenza vaccination Need for prophylactic vaccination and inoculation against influenza Primary hypertension Unspecified essential hypertension Stage 3a chronic kidney disease (HCC) documented in this encounter [facility] note* Diagnosis Chronic bilateral thoracic back pain- Primary Lumbar pain Lumbago [facility] Diagnosis Chronic bilateral thoracic back pain- Primary Lumbar pain Lumbago [facility] Diagnosis Chronic bilateral thoracic back pain- Primary Primary hypertension Unspecified essential hypertension Osteopenia of lumbar spine Encounter for screening for osteoporosis Special screening for osteoporosis Asymptomatic postmenopausal status documented in this encounter [facility] note* Diagnosis Stage 3 chronic kidney disease, unspecified whether stage 3a or 3b CKD (HCC)- Primary documented in this encounter [facility] noteNo assessment information [facility]. [facility] Work Phone: Evaluation note* Diagnosis Interstitial pulmonary disease (HCC) Postinflammatory pulmonary fibrosis Abnormal chest x-ray Other nonspecific abnormal finding of lung field documented in this encounter [facility] note* Diagnosis Opacity noted on imaging study Other nonspecific (abnormal) findings on radiological and other examinations of body structure Former cigarette smoker Personal history of tobacco use, presenting hazards to health Atelectasis Pulmonary collapse documented in this encounter [facility] note* Diagnosis Osteopenia of lumbar spine documented in this encounter [facility] note* Diagnosis Primary hypertension- Primary Unspecified essential hypertension Stasis edema of both lower extremities Osteopenia of lumbar spine Lumbar pain Lumbago [facility] Diagnosis Onset Date Resolution Status Hypoxia acute Acute exacerbation of chroni c obstructive pulmonary disease chronic [facility] Work Phone: Evaluation note* Diagnosis COPD with exacerbation (HCC)- Primary Obstructive chronic bronchitis with exacerbation Hypoxia Hypoxemia [facility] Diagnosis Onset Date Resolution Status Acute exacerbation of chroni c obstructive pulmonary disease resolved Hypoxia resolved [facility] Work Phone: Evaluation note* Diagnosis Onset Date Resolution Status Acute exacerbation of chroni c obstructive pulmonary disease resolved Hypoxia resolved Hypotension acute Bilateral carotid artery stenosis chronic Chronic kidney disease chron ic Essential hypertension chron ic Shortness of breath chronic COVID-19 acute History of TIA (transient ischemic attack) acute Hypoxia acute Pneumonia due to COVID-19 virus acute Bilateral carotid artery stenosis chronic Chronic kidney disease chron ic Essential hypertension chron ic History of COPD chronic [facility] Work Phone: Evaluation note* Diagnosis COVID- Primary SOB (shortness of breath) Shortness of breath Chronic hypoxic respiratory failure, on home oxygen therapy (HCC) Chronic obstructive pulmonary disease with acute exacerbation (HCC) Obstructive chronic bronchitis with exacerbation Exercise-induced asthma Exercise induced bronchospasm Pain of right lower extremity General weakness Other malaise and fatigue Fatigue, unspecified type Anemia, unspecified type Primary hypertension Unspecified essential hypertension Encounter for therapeutic drug monitoring [facility] Diagnosis Onset Date Resolution Status Acute exacerbation of chroni c obstructive pulmonary disease resolved Hypoxia resolved Hypotension acute COVID-19 resolved Hypoxia resolved Pneumonia due to COVID-19 virus resolved [facility] Work Phone: Evaluation note* Diagnosis Onset Date Resolution Status Acute exacerbation of chroni c obstructive pulmonary disease resolved Hypoxia resolved Bilateral carotid artery stenosis acute Essential hypertension acute Hypotension acute Shortness of breath acute Bilateral carotid artery stenosis acute Essential hypertension acute COVID-19 resolved Hypoxia resolved Pneumonia due to COVID-19 virus resolved Acute hypoxic respiratory failure acute Bilateral carotid artery stenosis acute Elevated troponin I level ac [place] Heart failure due to high blood pressure acute Hyperkalemia acute Non-STEMI (non-ST elevated myocardial infarction) acute Shortness of breath acute CKD (chronic kidney disease), stage III chronic Hypertension [facility] Work Phone: Evaluation note* Diagnosis Onset Date Resolution Status Acute exacerbation of chroni c obstructive pulmonary disease resolved Hypoxia resolved Bilateral carotid artery stenosis acute Essential hypertension acute Hypotension acute Shortness of breath acute Bilateral carotid artery stenosis acute Essential hypertension acute COVID-19 resolved Hypoxia resolved Pneumonia due to COVID-19 virus resolved Acute hypoxic respiratory failure acute Bilateral carotid artery stenosis acute Elevated troponin I level ac [place] Heart failure due to high blood pressure acute Hyperkalemia acute Non-STEMI (non-ST elevated myocardial infarction) acute Shortness of breath acute CKD (chronic kidney disease), stage III chronic Hypertension chronic Acute hypoxic respiratory failure acute Chronic heart failure with p reserved ejection fraction (HFpEF) acute Debility acute Hyperlipidemia acute Influenza A acute Non-STEMI (non-ST elevated myocardial infarction) acute Right lumbar radiculopathy a cute RLS (restless legs syndrome) acute TIA (transient ischemic attack) acute Acute exacerbation of chroni c obstructive pulmonary disease resolved [facility] Work Phone: Evaluation note* Diagnosis 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 [facility] Diagnosis Onset Date Resolution Status Acute exacerbation of chroni c obstructive pulmonary disease resolved Hypoxia resolved Bilateral carotid artery stenosis acute Essential hypertension acute Hypotension acute Shortness of breath acute Bilateral carotid artery stenosis acute Essential hypertension acute COVID-19 resolved Hypoxia resolved Pneumonia due to COVID-19 virus resolved Acute hypoxic respiratory failure acute Bilateral carotid artery stenosis acute Elevated troponin I level ac [place] Heart failure due to high blood pressure acute Hyperkalemia acute Non-STEMI (non-ST elevated myocardial infarction) acute Shortness of breath acute CKD (chronic kidney disease), stage III chronic Hypertension chronic Acute hypoxic respiratory failure acute Anemia acute Chronic heart failure with p reserved ejection fraction (HFpEF) acute Debility acute Hyperlipidemia acute Influenza A acute Non-STEMI (non-ST elevated myocardial infarction) acute Right lumbar radiculopathy a cute RLS (restless legs syndrome) acute TIA (transient ischemic attack) acute Acute exacerbation of chroni c obstructive pulmonary disease resolved [facility] [facility] Work Phone: Evaluation note* Diagnosis Onset Date Resolution Status Acute exacerbation of chroni c obstructive pulmonary disease resolved Hypoxia resolved Bilateral carotid artery stenosis acute Essential hypertension acute Hypotension acute Shortness of breath acute Bilateral carotid artery stenosis acute Essential hypertension acute COVID-19 resolved Hypoxia resolved Pneumonia due to COVID-19 virus resolved Bilateral carotid artery stenosis acute Elevated troponin I level ac [place] Heart failure due to high blood pressure acute Hyperkalemia acute Non-STEMI (non-ST elevated myocardial infarction) acute Shortness of breath acute CKD (chronic kidney disease), stage III chronic Hypertension chronic Anemia acute Chronic heart failure with p reserved ejection fraction (HFpEF) acute Debility acute Hyperlipidemia acute Influenza A acute Non-STEMI (non-ST elevated myocardial infarction) acute Right lumbar radiculopathy a cute RLS (restless legs syndrome) acute TIA (transient ischemic attack) acute Acute exacerbation of chroni c obstructive pulmonary disease resolved [facility] Work Phone: Evaluation note* Diagnosis Onset Date Resolution Status Acute exacerbation of chroni c obstructive pulmonary disease resolved Hypoxia resolved Bilateral carotid artery stenosis acute Essential hypertension acute Hypotension acute Shortness of breath acute Bilateral carotid artery stenosis acute Essential hypertension acute COVID-19 resolved Hypoxia resolved Pneumonia due to COVID-19 virus resolved Bilateral carotid artery stenosis acute Elevated troponin I level ac [place] Heart failure due to high blood pressure acute Hyperkalemia acute Shortness of breath acute CKD (chronic kidney disease), stage III chronic Hypertension chronic Non-STEMI (non-ST elevated myocardial infarction) resolved Anemia acute Chronic heart failure with p reserved ejection fraction (HFpEF) acute Debility acute Hyperlipidemia acute Right lumbar radiculopathy a cute RLS (restless legs syndrome) acute TIA (transient ischemic attack) acute Acute exacerbation of chroni c obstructive pulmonary disease resolved Influenza A resolved Non-STEMI (non-ST elevated myocardial infarction) resolved Pneumonia acute Respiratory insufficiency ac [place] [facility] Work Phone: Evaluation note* Diagnosis Onset Date Resolution Status Acute exacerbation of chroni c obstructive pulmonary disease resolved Hypoxia resolved Hypotension resolved Shortness of breath resolved COVID-19 resolved Hypoxia resolved Pneumonia due to COVID-19 virus resolved Acute hypoxic respiratory failure resolved Elevated troponin I level re solved Hyperkalemia resolved Non-STEMI (non-ST elevated myocardial infarction) resolved Shortness of breath resolved Acute exacerbation of chroni c obstructive pulmonary disease resolved Acute hypoxic respiratory failure resolved Influenza A resolved Non-STEMI (non-ST elevated myocardial infarction) resolved Respiratory insufficiency re solved Depression acute GERD (gastroesophageal reflux disease) acute Iron deficiency anemia acute Type 2 diabetes mellitus with hyperglycemia acute COPD (chronic obstructive pulmonary disease) chronic Acute hypoxic respiratory failure resolved Acute on chronic heart failu re with preserved ejection fraction (HFpEF) resolved Non-STEMI (non-ST elevated myocardial infarction) resolved [facility] Work Phone: Evaluation note* Diagnosis Chronic obstructive pulmonary disease, unspecified COPD type (HCC)- Primary [facility]* Diagnosis Chronic obstructive pulmonary disease, unspecified COPD type (HCC) documented in this encounter [facility] note* Diagnosis Chronic hypoxic respiratory failure, on home oxygen therapy (HCC)- Primary COPD with exacerbation (HCC) Obstructive chronic bronchitis with exacerbation Acute on chronic heart failure with preserved ejection fraction (HCC) Chronic bilateral low back pain, unspecified whether sciatica present Other insomnia Type 2 diabetes mellitus with hyperglycemia, without long-term current use of insulin (HCC) Stage 3b chronic kidney disease (HCC) Primary hypertension Unspecified essential hypertension Iron deficiency Iron deficiency anemia, unspecified Encounter for therapeutic drug monitoring documented in this encounter [facility] note* Diagnosis Acute on chronic renal insufficiency- Primary Unspecified disorder of kidney and ureter Hypocalcemia Vitamin D deficiency Unspecified vitamin D deficiency Encounter for long-term current use of medication [facility]* Diagnosis Chronic obstructive pulmonary disease, unspecified COPD type (HCC)- Primary documented in this encounter [facility] note* Diagnosis Dysphagia, unspecified type- Primary Hypocalcemia Hypomagnesemia Disorders of magnesium metabolism [facility]* Diagnosis Onset Date Resolution Status Hypotension resolved Shortness of breath resolved COVID-19 resolved Hypoxia resolved Pneumonia due to COVID-19 virus resolved Acute hypoxic respiratory failure resolved Elevated troponin I level re solved Hyperkalemia resolved Non-STEMI (non-ST elevated myocardial infarction) resolved Shortness of breath resolved Acute exacerbation of chroni c obstructive pulmonary disease resolved Acute hypoxic respiratory failure resolved Influenza A resolved Non-STEMI (non-ST elevated myocardial infarction) resolved Respiratory insufficiency re solved Depression acute GERD (gastroesophageal reflux disease) acute Iron deficiency anemia acute Type 2 diabetes mellitus with hyperglycemia acute COPD (chronic obstructive pulmonary disease) chronic Acute hypoxic respiratory failure resolved Acute on chronic heart failu re with preserved ejection fraction (HFpEF) resolved Non-STEMI (non-ST elevated myocardial infarction) resolved Acute hypokalemia acute Diverticulitis acute History of chronic heart failure acute History of diabetes mellitus acute History of hypertension acut e Urinary tract infection acut e History of COPD chronic [facility] Work Phone: Evaluation note* Diagnosis Onset Date Resolution Status Hypotension resolved Shortness of breath resolved COVID-19 resolved Hypoxia resolved Pneumonia due to COVID-19 virus resolved Acute hypoxic respiratory failure resolved Elevated troponin I level re solved Hyperkalemia resolved Non-STEMI (non-ST elevated myocardial infarction) resolved Shortness of breath resolved Acute exacerbation of chroni c obstructive pulmonary disease resolved Acute hypoxic respiratory failure resolved Influenza A resolved Non-STEMI (non-ST elevated myocardial infarction) resolved Respiratory insufficiency re solved Depression acute GERD (gastroesophageal reflux disease) acute Iron deficiency anemia acute Type 2 diabetes mellitus with hyperglycemia acute Acute hypoxic respiratory failure resolved Acute on chronic heart failu re with preserved ejection fraction (HFpEF) resolved Non-STEMI (non-ST elevated myocardial infarction) resolved Acute hypokalemia acute Diverticulitis acute History of chronic heart failure acute History of diabetes mellitus acute History of hypertension acut e Urinary tract infection acut e History of COPD chronic [facility] Work Phone: Evaluation note* Diagnosis Onset Date Resolution Status Hypotension resolved Shortness of breath resolved COVID-19 resolved Hypoxia resolved Pneumonia due to COVID-19 virus resolved Acute hypoxic respiratory failure resolved Elevated troponin I level re solved Hyperkalemia resolved Non-STEMI (non-ST elevated myocardial infarction) resolved Shortness of breath resolved Acute exacerbation of chroni c obstructive pulmonary disease resolved Acute hypoxic respiratory failure resolved Influenza A resolved Non-STEMI (non-ST elevated myocardial infarction) resolved Respiratory insufficiency re solved Depression acute GERD (gastroesophageal reflux disease) acute Iron deficiency anemia acute Type 2 diabetes mellitus with hyperglycemia acute Acute hypoxic respiratory failure resolved Acute on chronic heart failu re with preserved ejection fraction (HFpEF) resolved Non-STEMI (non-ST elevated myocardial infarction) resolved [facility] Work Phone: Evaluation note* Diagnosis Diverticulitis- Primary Diverticulitis of colon (without mention of hemorrhage) Chronic bilateral low back pain, unspecified whether sciatica present Lymphedema Other lymphedema Other insomnia Acute on chronic heart failure with preserved ejection fraction (HCC) Chronic hypoxic respiratory failure, on home oxygen therapy (HCC) Chronic obstructive pulmonary disease, unspecified COPD type ([facility]) Encounter for therapeutic drug monitoring Iron deficiency Iron deficiency anemia, unspecified Type 2 diabetes mellitus with hyperglycemia, without long-term current use of insulin (HCC) [facility]* Diagnosis HTN (hypertension), benign- Primary Essential hypertension, benign Anxiety Anxiety state, unspecified Moderate recurrent major depression (HCC) Major depressive disorder, recurrent episode, moderate Chronic bilateral low back pain, unspecified whether sciatica present Lymphedema Other lymphedema Iron deficiency Iron deficiency anemia, unspecified Hypocalcemia Stage 3b chronic kidney disease (HCC) [facility]* Diagnosis Restless legs syndrome (RLS) documented [facility]* Diagnosis Stage 3 severe COPD by GOLD classification ([facility])- Primary Chronic hypoxemic respiratory failure (HCC) Chronic respiratory failure Former smoker Personal history of tobacco use, presenting hazards to health Post-COVID chronic dyspnea Lung nodule Solitary pulmonary nodule [facility]* Diagnosis Stage 3 severe COPD by GOLD classification ([facility]) documented in this encounter [facility] note* Diagnosis Macrocytic anemia- Primary Unspecified deficiency anemia Stage 3b chronic kidney disease (HCC) Hypomagnesemia Disorders of magnesium metabolism documented in this encounter [facility] note* Diagnosis HTN (hypertension), benign- Primary Essential hypertension, benign Moderate recurrent major depression (HCC) Major depressive disorder, recurrent episode, moderate Anxiety Anxiety state, unspecified Chronic bilateral low back pain, unspecified whether sciatica present Other insomnia documented in this encounter [facility] note* Diagnosis Hypocalcemia Hypomagnesemia Disorders of magnesium metabolism [facility]* Diagnosis Chronic obstructive pulmonary disease, unspecified COPD type (HCC)- Primary documented in this encounter [facility] note* Diagnosis Acute left flank pain- Primary Abdominal pain, unspecified site History of kidney stones Personal history of urinary calculi Other insomnia HTN (hypertension), benign Essential hypertension, benign Stage 3b chronic kidney disease (HCC) Chronic hypoxic respiratory failure, on home oxygen therapy (HCC) Chronic obstructive pulmonary disease, unspecified COPD type (HCC) Type 2 diabetes mellitus with hyperglycemia, without long-term current use of insulin (HCC) Hypomagnesemia Disorders of magnesium metabolism Vitamin D deficiency Unspecified vitamin D deficiency Iron deficiency Iron deficiency anemia, unspecified Encounter for therapeutic drug monitoring documented in this encounter [facility] note* Diagnosis Primary hypertension Unspecified essential hypertension documented in this encounter [facility] note* Diagnosis Acute left flank pain Abdominal pain, unspecified site History of kidney stones Personal history of urinary calculi [facility] Diagnosis Exercise-induced asthma Exercise induced bronchospasm Chronic obstructive pulmonary disease with acute exacerbation (HCC) Obstructive chronic bronchitis with exacerbation COVID General weakness Other malaise and fatigue Fatigue, unspecified type SOB (shortness of breath) Shortness of breath Chronic hypoxic respiratory failure, on home oxygen therapy (HCC) [facility] Diagnosis COPD with exacerbation (HCC) Obstructive chronic bronchitis with exacerbation [facility] Diagnosis Simple chronic bronchitis (HCC) Simple chronic bronchitis [facility] Diagnosis SOB (shortness of breath) Shortness of breath [facility] Diagnosis Chronic bilateral thoracic back pain Lumbar pain Lumbago [facility] Diagnosis Other insomnia- Primary HTN (hypertension), benign Essential hypertension, benign Chronic obstructive pulmonary disease, unspecified COPD type (HCC) Chronic hypoxic respiratory failure, on home oxygen therapy (HCC) Type 2 diabetes mellitus with chronic kidney disease, without long-term current use of insulin, unspecified CKD stage (HCC) Chronic bilateral low back pain, unspecified whether sciatica present Encounter for immunization Need for other specified prophylactic vaccination against single bacterial disease [facility] Diagnosis Acute cough [facility] Diagnosis Acute on chronic heart failure with preserved ejection fraction (HCC)- Primary [facility] Diagnosis Chronic hypoxemic respiratory failure (HCC) Chronic respiratory failure [facility] Diagnosis Stage 3 severe COPD by GOLD classification ([facility])- Primary Chronic hypoxemic respiratory failure (HCC) Chronic respiratory failure Former smoker Personal history of tobacco use, presenting hazards to health Post-COVID chronic dyspnea Lung nodule Solitary pulmonary nodule [facility] Diagnosis Restless legs syndrome (RLS) [facility] Diagnosis Hallucinations- Primary Encounter for long-term current use of medication Type 2 diabetes mellitus with chronic kidney disease, without long-term current use of insulin, unspecified CKD stage (HCC) Vitamin D deficiency Unspecified vitamin D deficiency Hypomagnesemia 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) [facility] Diagnosis 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, unspecified laterality- Primary Renal cyst Unspecified congenital cystic kidney disease [facility] Diagnosis Essential hypertension- Primary Unspecified essential hypertension Mixed hyperlipidemia Chronic obstructive pulmonary disease, unspecified COPD type (HCC) Hypokalemia Hypopotassemia Auditory hallucinations Hallucinations Hypomagnesemia Disorders of magnesium metabolism Renal mass Unspecified disorder of kidney and ureter [facility] Diagnosis Hypocalcemia Hypomagnesemia Disorders of magnesium metabolism [facility] Diagnosis Chronic obstructive pulmonary disease, unspecified COPD type (HCC) [facility] Diagnosis Chronic obstructive pulmonary disease, unspecified COPD type (HCC) [facility] Mixed hyperlipidemia [facility] Diagnosis Chronic right shoulder pain- Primary Pain in joint, shoulder region Chronic bilateral low back pain, unspecified whether sciatica present Chronic obstructive pulmonary disease, unspecified COPD type (HCC) Primary hypertension Unspecified essential hypertension Restless legs syndrome (RLS) Hypokalemia Hypopotassemia 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 3b chronic kidney disease (HCC) Mixed hyperlipidemia Chronic hypoxemic respiratory failure (HCC) Chronic respiratory failure Acute on chronic heart failure with preserved ejection fraction (HCC) Type 2 diabetes mellitus with chronic kidney disease, without long-term current use of insulin, unspecified CKD stage (HCC) Moderate recurrent major depression (HCC) Major depressive disorder, recurrent episode, moderate [facility] Diagnosis Chronic right shoulder pain Pain in joint, shoulder region [facility] Diagnosis Exercise-induced asthma (HCC) Exercise induced bronchospasm Chronic obstructive pulmonary disease with acute exacerbation (HCC) Obstructive chronic bronchitis with exacerbation [facility] Diagnosis Stage 3 severe COPD by GOLD classification ([facility])- Primary Chronic hypoxemic respiratory failure (HCC) Chronic respiratory failure Former cigarette smoker Personal history of tobacco use, presenting hazards to health [facility] Diagnosis Carpal tunnel syndrome of right wrist- Primary Carpal tunnel syndrome [facility] Diagnosis 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, unspecified laterality Renal cyst Unspecified congenital cystic kidney disease [facility] Diagnosis Carpal tunnel syndrome of right wrist- Primary Carpal tunnel syndrome Cervical disc disorder with radiculopathy of cervical region Brachial neuritis or radiculitis nos [facility] Hospital discharge follow-up- Primary Other follow-up examination Achalasia of cardia Achalasia and cardiospasm Esophagitis, [place] grade D Diverticulosis of colon without hemorrhage Diverticulosis of colon (without mention of hemorrhage) Anal fissure Anemia, unspecified type Magnesium deficiency Disorders of magnesium metabolism [facility] Author Yenny Abdul [facility] August 18, 2023 4:01pm Note Date/Time August 18, 2023 3 :58pm [facility] Medical Records Department [address] [place] [address] H&P Exam - Hospitalist 08/18/23 1552 MR#: [id number] Acct: [id number] Name: DICK ARTIS Rep #:[id number] 4 : 1935 87 From: Yenny Abdul MD PCP: Dr. Mady Dunn MD Status:RE G ER Location: ED HPI - General General Date of Admission: 08/18/23 Date of Service: 08/18/23 Chief Complaint: Cough, CP, low O2 sat HPI Narrative DICK ARTIS, is a 87-year-old female with history of COPD, history of TIA on Plavix, hyperlipidemia, PAD, chronic kidney disease who presents to the emergency department with complaints of worsening shortness of breath over the last several days. Today she was at pain management and her oxygen saturation was found to be 85%, she does endorse that she has been more short of breath andhas been coughing, shortness of breath worse with exertion. While sitting in room patient was 87% was placed on 2 L of O2 with improvement in O2 sats. In the ED she was found to be COVID-positive. Given her hypoxia and shortness of breath hospitalist contacted for admission. Patient seen at bedside with familymember present, she reports that over the past 3 days she has specifically had increased shortness of breath and cough and oxygen has been dropping to the 80s. Denies fevers or chills, no swelling, ROS otherwise negative. [facility] Medical History Bilateral carotid artery stenosis Claudication Diverticulosis Dyslipidemia Essential hypertension Limb weakness Neck and back pain PAD (peripheral artery disease) Renal cyst RLS (restless legs syndrome) Shoulder pain TIA (transient ischemic attack) Home Medications atorvastatin 40 mg tablet 40 mg PO QHS cholesterol 02/22/16 [History Last Taken 06/18/23] clopidogrel 75 mg tablet 75 mg PO DAILY BLOOD THINNER 02/22/16 [History Last Taken 06/19/23] multivitamin with folic acid 400 mcg tablet 1 tab PO DAILY supplement 02/22/16 [History Last Taken 08/18/23] spironolactone 25 mg tablet 25 mg PO DAILY FLUID RETENTION 02/22/16 [History Last Taken 06/19/23] albuterol sulfate 90 mcg/actuation aerosol inhaler 2 puff inhalation BID PRN shortness of breath or wheezing 03/16/18 [History Last Taken 08/17/23] cholecalciferol (vitamin D3) 25 mcg (1,000 unit) tablet 2,500 unit PO DAILY SUPPLEMENT 10/09/18 [History Last Taken 06/19/23] furosemide 40 mg tablet 40 mg PO DAILY FLUID RETENTION #90 tabs 01/27/22 [Rx Last Taken 08/18/23] albuterol sulfate 2.5 mg/3 mL (0.083 %) solution for nebulization 2.5 mg inhalation Q4H PRN shortness of breath or wheezing 05/28/22 [History Last Taken 08/18/23] ipratropium 0.5 mg-albuterol 3 mg (2.5 mg base)/3 mL nebulization soln 3 ml inhalation Q6H PRN shortness of breath 05/28/22 [History Last Taken 08/18/23] budesonide 0.5 mg/2 mL suspension for nebulization 0.25 mg inhalation TID PRN shortness of breath 12/06/22 [History Last Taken 08/18/23] carvedilol 12.5 mg tablet 12.5 mg PO BID CHOLESTEROL #180 tabs 04/27/23 [Rx Last Taken 06/19/23] losartan 50 mg tablet 50 mg PO DAILY BLOOD PRESSURE #90 tabs 08/01/23 [Rx Last Taken 08/18/23] duloxetine 30 mg capsule,delayed release 30 mg PO BID pain 08/17/23 [History Last Taken 08/18/23] hydrocodone-acetaminophen 5-325mg 5mg-325mg 1 tab PO TID PRN pain 08/17/23 [History Last Taken 08/18/23] pramipexole 1.5 mg tablet 1.5 mg PO QHS restless leg syndrome 08/18/23 [History Last Taken 08/17/23] Allergy/AdvReac Type Severity Reaction Status Date / Time lisinopril Allergy edema Verified 08/18/23 13:12 aspirin AdvReac Upset Verified 08/18/23 13:12 Stomach Family History Mother Heart disease Surgical History History of basal cell carcinoma excision History of carotid angioplasty History of kidney stones History of thyroid surgery History of total hysterectomy Social History household members: none Smoking Status: Former smoker how long ago did patient quit smokin years ago alcohol intake: current alcohol intake frequency: holidays/special occasions only details: rare substance use type: does not use caffeine: Yes Type: coffee Number of servings: 1 ROS ROS Narrative General: Denies fever/chills HENT: Denies headache, denies stuffy nose, denies sore throat EYES: Denies changes in vision Resp: Increased cough and shortness of breath Cardiac: Denies chest pain GI: Denies abdominal pain, denies changes in bowel, denies nausea/vomiting : Denies changes in urination Extremity: Denies swelling MSK: Denies weakness Neuro: Denies any numbness/tingling Heme: Denies any bleeding or bruising Skin: Denies rashes Psychiatric: No complaints voiced Vital Signs Vital Signs Vital Signs: 08/18/23 13:12 08/18/23 14:02 08/18/23 14:03 Temperature 97.5 F L Temperature Source Temporal Pulse Rate 99 Respiratory Rate 20 H Respiratory Effort Normal Non-Labored Respiratory Depth Normal Respiratory Pattern Normal Blood Pressure 137/59 H Blood Pressure Mean 85 Pulse Ox 90 93 Oxygen Delivery Method Room Air Nasal Cannula Room Air Oxygen Flow Rate (L/min) 2.5 08/18/23 14:16 Temperature Temperature Source Pulse Rate 101 H Respiratory Rate 16 Respiratory Effort Respiratory Depth Respiratory Pattern Normal Blood Pressure Blood Pressure Mean Pulse Ox Oxygen Delivery Method Oxygen Flow Rate (L/min) Physical Exam Narrative General: Alert, oriented, no apparent distress HEENT: Atraumatic, normocephalic Eyes: Anicteric, normal conjunctiva, extraocular movements grossly intact Neck: Supple Respiratory: Slight increased respiratory effort, scattered wheezes Cardiovascular: Regular rate and rhythm GI: Soft, nontender, nondistended Extremities: No edema Musculoskeletal: Moving all extremities Neuro: No overt focal neurological deficits Skin: No rashes appreciated Psych: Cooperative Results Lab / Micro Data 08/18/23 14:00 08/18/23 14:00 Labs: Laboratory Results - last 24 hr 08/18/23 14:00: WBC 6.6, RBC 3.27 L, Hgb 10.2 L, Hct 33.2 L, MCV 101.5 H, MCH 31.2, MCHC 30.7 L, RDW Std Deviation 58.0 H, RDW Coeff of Ha 15.6 H, Plt Count 236, MPV 10.0, Immature Gran % (Auto) 3.200 H, Neut % (Auto) 76.5 H, Lymph % (Auto) 11.9 L, [place] % (Auto) 6.0, Eos % (Auto) 1.8, Baso % (Auto) 0.6, Absolute Neuts (auto) 5.0, Absolute Lymphs (auto) 0.78 L, Nucleated RBC % 0.3, Sodium 145, Potassium 3.5, Chloride 109 H, Carbon Dioxide 31.0, Anion Gap 5, BUN 43 H, Creatinine 1.56 H, Est GFR (MDRD) Af Amer 41 L, Est GFR (MDRD) Non-Af 34 L, BUN/Creatinine Ratio 27.6 H, Glucose 155 H, Calcium 9.5, Troponin I High Sens 45, B-Natriuretic Peptide 149.2 H Micro: Microbiology 08/18/23 14:10 Mucosa - Nose SARS-CoV-2, Influenza & RSV (PCR) - Final SARS-CoV-2 (COVID 19 PCR) Imaging Radiology Impression Chest X-Ray 08/18/23 15:20 IMPRESSION: Infiltrates in the lingular segment of the left upper lobe as well as the right middle lobe. Radiographic follow-up recommended. Hyperinflation. Electronically Signed: Ramos Jolley MD at 15:32 EST , Assessment & Plan Assessment/Plan (1) COVID-19: (2) Hypoxia: (3) History of TIA (transient ischemic attack): (4) History of COPD: (5) Chronic kidney disease: QUALIFIERS: Chronic kidney disease stage: stage 3 (moderate) Chronic kidney disease stage 3 subtype: stage 3b (GFR 30-44) Qualified Code(s):N18.32 - Chronic kidney disease, stage 3b (6) Bilateral carotid artery stenosis: (7) Essential hypertension: PLAN: Plan #Hypoxia in setting of acute COVID-19 and chronic COPD -Respiratory panel, COVID/flu/RSV showed patient COVID-positive -Covid precautions -cxr: With infiltrates in the lingular segment of the left upper lobe and right middle lobe -Dexamethasone, remdesivir -Nebs, albuterol as needed -Mucinex -Incentive spirometry #Hx TIA/PAD/bilateral carotid stenosis -Cont plavix -Continue statin # Chronic pain -Follows with pain management -Continue current medications -Continue cymbalta #HTN -MIKAYLA 121/60 -Continue losartan, spirono, carvediolol, lasix # RLS -Continue pramipexole #Chronic macrocytic anemia -10.2, lower than 1/10 but pt chronically in 10-12 range and no report of blood loss -Check iron panel, b12, folate #CKDIIIb -Appears to be at baseline -Avoid nephrotoxic agents -Daily BMP #DVT ppx: Lovenox subcu Yenny Abdul MD Charges/Coding Visit Charges Inpatient E&M: 57442 Init Hosp L2 08/18/23 1601 <Electronically signed by Yenny Abdul MD> Cosigner Signature (if applicable): CC: Dr. Mady Dunn MD; Dr. Yenny Abdul MD~ Signed [facility] Work Phone: Hospital Discharge instructions Additional Instructions Thank you for trusting us with your care today! Please take Tylenol (2 pills, 650 mg), ibuprofen (2 pills, 400 mg) every 6 hours as needed for pain and fever control. Please take prednisone as prescribed. Please return to the emergency department if your symptoms change or worsen. Please follow with your primary care physician for further outpatient evaluation and management.[facility] Work Phone: Hospital Discharge instructions Additional Instructions Thank you for trusting us with your care today! Your labs and images were overall reassuring. You did have some inflammation in your urine. Given your history of diverticulitis we will start you on antibiotics. Thought processes you may be early in the course we have not found it on CT yet. We wanted to get ahead of your treatment. Please take Tylenol (2 pills, 650 mg), ibuprofen (2 pills, 400 mg) every 6 hours as needed for pain and fever control. Please return to the emergency department if your symptoms change or worsen. Specifically vomiting if he cannot tell antibiotics by mouth. Please follow with your primary care physician for further outpatient evaluation and management.[facility] Work Phone: Hospital Discharge instructions Additional Instructions Follow-up with orthopedics within the next few days. Call for an appointment. Continue ice and elevation of your left wrist when possible. Oxycodone as needed for breakthrough pain. You can continue Tylenol as needed for pain as well. 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 Procedures US KIDNEY/BLADDER US RETROPERITONEAL REAL TIME W/IMAGE COMPLETE Spencer Boone MD [address] [place] [address] [facility] Referral ID Status Reason Start Date Expiration Date Visits Requested Visits Authorized [id number] Authorized Auto-Generat ed Referral 12/28/2021 01/27/2023 1 1 * Diagnostic Procedure Only (Routine) - Authorized Specialty Diagnoses / Procedures [facility] To Contact [facility] Diagnoses Renal mass 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 Procedures US KIDNEY/BLADDER US RETROPERITONEAL REAL TIME W/IMAGE COMPLETE Spencer Boone MD [address] [place] [address] [facility] Referral ID Status Reason Start Date Expiration Date Visits Requested Visits Authorized [id number] Authorized Auto-Generat ed Referral 12/28/2021 01/27/2023 1 1 [facility] for referral (narrative)* Outpatient Procedure (Routine) - Pending Review Specialty Diagnoses / Procedures Referred By Contac t Referred To Contact [facility] Diagnoses COPD, mild (HCC) Procedures SPIROMETRY BASELINE ONLY SPMTRY W/VC [facility]ATORY [place] W/WO MXML VOL VNTJ Ana Hernandez PA-C [address] [address] [facility] [place] [address] [place] [address] Referral ID Status Reason Start Date Expiration Date Visits Requested Visits Authorized [id number] Pending Review Auto-Generat ed Referral 02/04/2022 03/06/2023 1 1 [facility] for referral (narrative)* Diagnostic Procedure Only (Routine) - Pending Review Specialty Diagnoses / Procedures Referred By Jesus t Referred To Contact [facility] Diagnoses Renal mass 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 Procedures US KIDNEY/BLADDER US RETROPERITONEAL REAL TIME W/IMAGE COMPLETE Spencer Boone MD [address] [place] [address] [facility] Referral ID Status Reason Start Date Expiration Date Visits Requested Visits Authorized [id number] Pending Review Auto-Generat ed Referral 05/28/2023 1 1 [facility] for referral (narrative)* Diagnostic Procedure Only (Routine) - Pending Review Specialty Diagnoses / Procedures Referred By Jesus t Referred To Contact [facility] Diagnoses 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 Procedures US KIDNEY/BLADDER US RETROPERITONEAL REAL TIME W/IMAGE COMPLETE Spencer Boone MD [address] [place] [address] [facility] Referral ID Status Reason Start Date Expiration Date Visits Requested Visits Authorized [id number] Pending Review Auto-Generat ed Referral 12/15/2022 01/14/2024 1 1 [facility] for referral (narrative)* Outpatient Procedure (Routine) - Authorized Specialty Diagnoses / Procedures Referred By Jesus t Referred To Contact [facility] Diagnoses Pain of right lower extremity Procedures US LEG VEIN DVT UNL VAS LAB DUP-SCAN XTR VEINS UNILATERAL/LIMITED STUDY Rosaura Suárez APRN.CNP [address] [place] [address] [facility] [address] [address] Referral ID Status Reason Start Date Expiration Date Visits Requested Visits Authorized [id number] Authorized Auto-Generat ed Referral 09/02/2023 09/01/2024 1 1 [facility] for referral (narrative)* Diagnostic Procedure Only (Routine) - Pending Review Specialty Diagnoses / Procedures Referred By Jesus t Referred To Contact [facility] Diagnoses 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 Procedures US KIDNEY/BLADDER US RETROPERITONEAL REAL TIME W/IMAGE Spencer Engel MD [address] [place] [address] [place] [address] Referral ID Status Reason Start Date Expiration Date Visits Requested Visits Authorized [id number] Pending Review Auto-Generat ed Referral 09/15/2023 10/14/2024 1 1 [facility] for referral (narrative)* Outpatient Procedure (Routine) - Authorized Specialty Diagnoses / Procedures Referred By Contac t Referred To Contact [facility] Diagnoses Chronic hypoxemic respiratory failure (HCC) Procedures OXIMETRY WITH AMBULATION NONINVASIVE EAR/PULSE OXIMETRY Ana Johnson PA-C [address] [place] [address] [facility] [place] [address] [place] [id number] Referral ID Status Reason Start Date Expiration Date Visits Requested Visits Authorized [id number] Authorized Auto-Generat ed Referral 12/20/2023 01/18/2025 1 1 [facility] for referral (narrative)* Diagnostic Procedure Only (Routine) - Closed Specialty Diagnoses / Procedures Referred By Contac t Referred To Contact X[facility] IMAG[facility] Diagnoses Acute left flank pain History of kidney stones Procedures XR ABDOMEN 3V KUB W/OBLIQUES RADIOLOGIC EXAM ABDOMEN 3+ VIEWS Rosaura Suárez APRN.CNP [address] [place] [address] [place] [address] Referral ID Status Reason Start Date Expiration Date V isits Requested Visits Authorized [id number] Closed Auto-Generate d Referral 02/08/2024 03/09/2025 1 1 [facility] for referral (narrative)* Diagnostic Procedure Only (Routine) - Closed Specialty Diagnoses / Procedures Referred By Contac t Referred To Contact [facility] IMAG[facility] Diagnoses Acute left flank pain History of kidney stones Procedures XR ABDOMEN 3V KUB W/OBLIQUES RADIOLOGIC EXAM ABDOMEN 3+ VIEWS Rosaura Suárez APRN.CNP [address] [place] [address] [place] [address] Referral ID Status Reason Start Date Expiration Date V isits Requested Visits Authorized [id number] Closed Auto-Generate d Referral 02/08/2024 03/09/2025 1 1 [facility] for referral (narrative)* Diagnostic Procedure Only (Routine) - Closed Specialty Diagnoses / Procedures Referred By Contac t Referred To Contact X[facility] IMAG[facility] Diagnoses Lumbar pain Procedures XR LUMBAR GENERAL 3V AP/LAT/L5-S1 RADEX SPINE LUMBOSACRAL 2/3 VIEWS Rosaura Suárez APRN.YARD CRANE OPERATOR [address] [place] [address] [place] [address] Referral ID Status Reason Start Date Expiration Date V isits Requested Visits Authorized [id number] Closed Auto-Generate d Referral 03/23/2023 04/21/2024 1 1 * Diagnostic Procedure Only (Routine) - Closed Specialty Diagnoses / Procedures Referred By Contac t Referred To Contact X[facility] IMAG[facility] Diagnoses Chronic bilateral thoracic back pain Procedures XR THORACIC LIMITED 2V AP/LAT RADEX SPINE THORACIC 2 VIEWS Rosaura Suárez APRN.YARD CRANE OPERATOR [address] [place] [address] [place] [address] Referral ID Status Reason Start Date Expiration Date V isits Requested Visits Authorized [id number] Closed Auto-Generate d Referral 03/23/2023 04/21/2024 1 1 [facility] for referral (narrative)* Diagnostic Procedure Only (Routine) - New Request Specialty Diagnoses / Procedures Referred By Contac t Referred To Contact [facility] Diagnoses 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, unspecified laterality Renal cyst Procedures US KIDNEY/BLADDER US RETROPERITONEAL REAL TIME W/IMAGE COMPLETE Spencer Boone MD [address] [place] [address] [place] [address] Referral ID Status Reason Start Date Expiration Date Visits Requested Visits Authorized [id number] New Request Auto-Generat ed Referral 07/15/2025 1 1 [facility] for referral (narrative)No reason for referral information [facility] Work Phone: Reason for visit Narrative* Diagnostic Procedure Only (Routine) - Closed Specialty Diagnoses / Procedures Referred By Contac t Referred To Contact XR IMAGING Diagnoses Acute left flank pain History of kidney stones Procedures XR ABDOMEN 3V KUB W/OBLIQUES RADIOLOGIC EXAM ABDOMEN 3+ VIEWS Rosaura Suárez APRN.YARD CRANE OPERATOR [address] [place] [address] [place] [address] Referral ID Status Reason Start Date Expiration Date V isits Requested Visits Authorized [id number] Closed Auto-Generate d Referral 02/08/2024 03/09/2025 1 1 [facility] for visit Narrative* Diagnostic Procedure Only (Routine) - Closed Specialty Diagnoses / Procedures Referred By Contac t Referred To Contact XR IMAGING Diagnoses Lumbar pain Procedures XR LUMBAR GENERAL 3V AP/LAT/L5-S1 RADEX SPINE LUMBOSACRAL 2/3 VIEWS Rosaura Suárez APRN.YARD CRANE OPERATOR [address] [place] [phone] [place] [address] Referral ID Status Reason Start Date Expiration Date V isits Requested Visits Authorized [id number] Closed Auto-Generate d Referral 03/23/2023 04/21/2024 1 1 [facility] for visit Narrative* Diagnostic Procedure Only (Routine) - Closed Specialty Diagnoses / Procedures Referred By Contac t Referred To Contact XR IMAGING Diagnoses Chronic right shoulder pain Procedures XR SHOULDER GENERAL 3V OR MORE AP/TRUE AP/OTHER RIGHT RADEX SHOULDER COMPLETE MINIMUM 2 VIEWS Viktoriya Manzo MD [address] [place] [address] Phone: tel: fax: [place] [address] Referral ID Status Reason Start Date Expiration Date V isits Requested Visits Authorized [id number] Closed Auto-Generate d Referral 10/05/2024 11/04/2025 1 1 [facility] for visit Narrative* Diagnostic Procedure Only (Routine) - Closed Specialty Diagnoses / Procedures Referred By Contac t Referred To Contact [facility] Diagnoses 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, unspecified laterality Renal cyst Procedures US KIDNEY/BLADDER US RETROPERITONEAL REAL TIME W/IMAGE COMPLETE Spencer Boone MD [address] [place] [address] Phone: tel: fax: [place] [address] Referral ID Status Reason Start Date Expiration Date V isits Requested Visits Authorized [id number] Closed Auto-Generate d Referral 06/15/2024 07/15/2025 1 1 [facility] Advance Directives Documents on File Type Date Recorded Patient Clay Digger Expl anation Advance Directive(s) 01/23/2021 6:10 AM Advance Directive(s) 10/27/2011 12:00 AM Advance Directive(s) 09/02/2006 12:00 AM Documents on File Type Date Recorded Patient Clay Digger Expl anation Advance Directive(s) 01/23/2021 6:10 AM Advance Directive(s) 10/27/2011 12:00 AM Advance Directive(s) 09/02/2006 12:00 AM Documents on File Type Date Recorded Patient Clay Digger Expl anation Advance Directive(s) 10/27/2011 Advance Directive(s) 09/02/2006 Documents on File Type Date Recorded Patient Clay Digger Expl anation Advance Directive(s) 10/27/2011 Advance Directive(s) 09/02/2006 Advance Directive Response Recorded Date/ Time Living Will Yes February 03, 2021 1:35pm Power of Equipment Technician Yes February 03 1:35pm Advance Directive Response Recorded Date/ Time Name of Medical Power of Equipment Technician recalled December 09, 2022 10:42am Living Will No December 30, 2022 5:05pm Power of Equipment Technician No December 30 5:05pm Advance Directive Response Recorded Date/ Time Living Will No December 30, 2022 5:05pm Power of Equipment Technician No December 30 5:05pm Advance Directive Response Recorded Date/ Time Living Will No June 19 12:51pm Power of Equipment Technician No June 19, 2023 12:51pm Advance Directive Response Recorded Date/ Time Name of Medical Power of Equipment Technician Alina Trotter lyn June 19, 2023 2:03pm Name of Medical Power of Equipment Technician Raimundo July 27, 2023 7:07pm Living Will Yes July 27 7:07pm Power of Equipment Technician Yes July 27, 2023 7:07pm Advance Directive Response Recorded Date/ Time Name of Medical Power of Equipment Technician raimundo August 18, 2023 2:03pm Living Will Yes August 18 2:03pm Power of Equipment Technician Yes August 18, 2023 2:03pm Name of Medical Power of Equipment Technician Alina Shaf lyn June 19, 2023 2:03pm Name of Medical Power of Equipment Technician Raimundo July 27, 2023 7:07pm Advance Directive Response Recorded Date/ Time Name of Medical Power of Equipment Technician raimundo August 18, 2023 5:21pm Living Will Yes August 18 5:21pm Power of Equipment Technician Yes August 18, 2023 5:21pm Name of Medical Power of Equipment Technician Alina Rose Marie lyn June 19, 2023 2:03pm Name of Medical Power of Equipment Technician Raimundo July 27, 2023 7:07pm Advance Directive Response Recorded Date/ Time Name of Medical Power of Equipment Technician raimundo August 18, 2023 5:21pm Name of Medical Power of Equipment Technician Alinajimi nicholson June 19, 2023 2:03pm Name of Medical Power of Equipment Technician Raimundo July 27, 2023 7:07pm Name of Medical Power of Equipment Technician Marquis Artis September 03, 2023 1:21pm Living Will Yes September 03, 2 024 1:21pm Power of Equipment Technician Yes September 03, 2023 1:21pm Advance Directive Response Recorded Date/ Time Name of Medical Power of Equipment Technician raimundo August 18, 2023 5:21pm Name of Medical Power of Equipment Technician Alina nicholson June 19, 2023 2:03pm Name of Medical Power of Equipment Technician Raimundo July 27, 2023 7:07pm Name of Medical Power of Equipment Technician Marquis Artis September 03, 2023 1:21pm Name of Medical Power of Equipment Technician Alinajimi nicholson September 12, 2023 4:18pm Living Will Yes September 12, 2 024 4:18pm Power of Equipment Technician Yes September 12, 2023 4:18pm Advance Directive Response Recorded Date/ Time Name of Medical Power of Equipment Technician raimundo August 18, 2023 5:21pm Name of Medical Power of Equipment Technician Alina Galeas June 19, 2023 2:03pm Name of Medical Power of Equipment Technician Raimundo July 27, 2023 7:07pm Name of Medical Power of Equipment Technician alina daughter September 16, 2023 11:16am Living Will Yes September 16, 2023 11:16am Power of Equipment Technician Yes September 15 11:16am Name of Medical Power of Equipment Technician Marquis Artis September 03, 2023 1:21pm Name of Medical Power of Equipment Technician Alina Galeas, daughter September 15, 2023 3:37pm Advance Directive Response Recorded Date/ Time Name of Medical Power of Equipment Technician raimundo August 18, 2023 6:21pm Name of Medical Power of Equipment Technician Alinajimi Galeas June 19, 2023 3:03pm Name of Medical Power of Equipment Technician Raimundo July 27, 2023 8:07pm Name of Medical Power of Equipment Technician alina daughter September 16, 2023 12:16pm Living Will Yes September 16, 2023 12:16pm Power of Equipment Technician Yes September 15 12:16pm Name of Medical Power of Equipment Technician Marquis Artis September 03, 2023 2:21pm Name of Medical Power of Equipment Technician Alina Galeas, daughter September 15, 2023 4:37pm Advance Directive Response Recorded Date/ Time Name of Medical Power of Equipment Technician raimundo August 18, 2023 6:21pm Name of Medical Power of Equipment Technician Alina Galeas June 19, 2023 3:03pm Name of Medical Power of Equipment Technician Raimundo July 27, 2023 8:07pm Name of Medical Power of Equipment Technician alina daughter September 16, 2023 12:16pm Name of Medical Power of Equipment Technician ALINAJIMI GALEAS October 02, 2023 7:09pm Living Will Yes October 02, 2023 7:09pm Power of Equipment Technician Yes October 01 7:09pm Name of Medical Power of Equipment Technician Marquis Artis September 03, 2023 2:21pm Name of Medical Power of Equipment Technician Alina Galeas, daughter September 15, 2023 4:37pm Advance Directive Response Recorded Date/ Time Name of Medical Power of Equipment Technician raimundo August 18, 2023 6:21pm Name of Medical Power of Equipment Technician Alinajimi Galeas June 19, 2023 3:03pm Name of Medical Power of Equipment Technician Raimundo July 27, 2023 8:07pm Name of Medical Power of Equipment Technician alina daughter September 16, 2023 12:16pm Name of Medical Power of Equipment Technician ALINA GALEAS October 03, 2023 1:49am Living Will Yes October 03, 2023 1:49am Power of Equipment Technician Yes October 02 1:49am Name of Medical Power of Equipment Technician Marquis Artis September 03, 2023 2:21pm Name of Medical Power of Equipment Technician Alina Galeas, daughter September 15, 2023 4:37pm Advance Directive Response Recorded Date/ Time Name of Medical Power of Equipment Technician raimundo August 18, 2023 6:21pm Name of Medical Power of Equipment Technician Alina Gudelia June 19, 2023 3:03pm Name of Medical Power of Equipment Technician Raimundo July 27, 2023 8:07pm Name of Medical Power of Equipment Technician alnia daughter September 16, 2023 12:16pm Name of Medical Power of Equipment Technician ALINA GUDELIA October 03, 2023 1:49am Name of Medical Power of Equipment Technician Marquis Artis September 03, 2023 2:21pm Name of Medical Power of Equipment Technician Alina Galeas, daughter September 15, 2023 4:37pm Name of Medical Power of Equipment Technician Alina Galesa, daughter October 06, 2023 10:12am Living Will Yes October 06, 2023 10:12am Power of Equipment Technician Yes October 05 10:12am Advance Directive Response Recorded Date/ Time Name of Medical Power of Equipment Technician raimundo August 18, 2023 6:21pm Name of Medical Power of Equipment Technician Raimundo July 27, 2023 8:07pm Name of Medical Power of Equipment Technician alina daughter September 16, 2023 12:16pm Name of Medical Power of Equipment Technician ALINA GALEAS October 03, 2023 1:49am Name of Medical Power of Equipment Technician ALINA GALEAS November 03, 2023 12:48pm Living Will Yes November 03, 2023 12:48pm Power of Equipment Technician Yes November 02 12:48pm Name of Medical Power of Equipment Technician Marquis Artis September 03, 2023 2:21pm Name of Medical Power of Equipment Technician Alina Galeas, daughter September 15, 2023 4:37pm Name of Medical Power of Equipment Technician Alina Galeas, daughter October 06, 2023 10:12am Advance Directive Response Recorded Date/ Time Name of Medical Power of Equipment Technician raimundo August 18, 2023 6:21pm Name of Medical Power of Equipment Technician Raimundo July 27, 2023 8:07pm Name of Medical Power of Equipment Technician alina daughter September 16, 2023 12:16pm Name of Medical Power of Equipment Technician ALINA GALEAS October 03, 2023 1:49am Name of Medical Power of Equipment Technician ALINA GALEAS November 03, 2023 12:48pm Living Will No November 03, 2023 6:31pm Power of Equipment Technician No November 02 6:31pm Name of Medical Power of Equipment Technician Marquis Artis September 03, 2023 2:21pm Name of Medical Power of Equipment Technician Alina Galeas, daughter September 15, 2023 4:37pm Name of Medical Power of Equipment Technician Alina Galeas, daughter October 06, 2023 10:12am Advance Directive Response Recorded Date/ Time Living Will Yes April 17 1:18pm Power of Equipment Technician Yes April 17, 1:18pm Living Will Yes June 07 12:47am Power of Equipment Technician Yes June 07, 2024 12:47am Name of Medical Power of Equipment Technician DAUGHTER June 07, 2024 12:47am Living Will Yes September 24, 2024 1:52pm Power of Equipment Technician Yes September 24 1:52pm Name of Medical Power of Equipment Technician DTR September 24, 2024 1:52pm Advance Directive Response Recorded Date/ Time Living Will Yes April 17 1:18pm Do you have a Healthcare Power of Equipment Technician? Yes April 17, 2024 1:18pm Living Will Yes September 24, 2024 1:52pm Do you have a Healthcare Power of Equipment Technician? Yes September 24, 2024 1:52pm Name of Medical Power of Equipment Technician DTR September 24, 2024 1:52pm Advance Directive Response Recorded Date/ Time Living Will Yes April 17 1:18pm Do you have a Healthcare Power of Equipment Technician? Yes April 17, 2024 1:18pm Do you have a Healthcare Power of Equipment Technician? Yes November 28, 2024 1:41pm Name of Medical Power of Equipment Technician Raimundo Lu November 28, 2024 1:41pm Living Will Yes September 24, 2024 1:52pm Do you have a Healthcare Power of Equipment Technician? Yes September 24, 2024 1:52pm Name of Medical Power of Equipment Technician DTR September 24, 2024 1:52pm Advance Directive Response Recorded Date/ Time Do you have a Healthcare Power of Equipment Technician? Yes November 28, 2024 1:41pm Name of Medical Power of Equipment Technician Raimundo Lu November 28, 2024 1:41pm Living Will Yes September 24, 2024 1:52pm Do you have a Healthcare Power of Equipment Technician? Yes September 24, 2024 1:52pm Name of Medical Power of Equipment Technician DTR September 24, 2024 1:52pm Advance Directive Response Recorded Date/ Time Do you have a Healthcare Power of Equipment Technician? Yes November 28, 2024 1:41pm Name of Medical Power of Equipment Technician Raimundo Lu November 28, 2024 1:41pm Living Will Yes September 24, 2024 1:52pm Do you have a Healthcare Power of Equipment Technician? Yes September 24, 2024 1:52pm Name of Medical Power of Equipment Technician DTR September 24, 2024 1:52pm Do you have a Healthcare Power of Equipment Technician? Yes December 17, 2024 4:42am Advance Directive Response Recorded Date/ Time Do you have a Healthcare Pow er of Equipment Technician? Yes November 28, 2024 1:41pm Name of Medical Power of Equipment Technician Raimundo Lu November 28, 2024 1:41pm Do you have a Healthcare Pow er of Equipment Technician? Yes December 27, 2024 3:28pm Name of Medical Power of Equipment Technician DTR, ALINA GALEAS AND SON JAC ARTIS December 27, 2024 3:28pm Living Will Yes September 24, 2024 1:52pm Do you have a Healthcare Pow er of Equipment Technician? Yes September 24, 2024 1:52pm Name of Medical Power of Equipment Technician DTR September 24, 2024 1:52pm Do you have a Healthcare Pow er of Equipment Technician? Yes December 17, 2024 4:42am Advance Directive Response Recorded Date/ Time Do you have a Healthcare Pow er of Equipment Technician? Yes November 28, 2024 1:41pm Name of Medical Power of Equipment Technician Raimundo Lu November 28, 2024 1:41pm Do you have a Healthcare Pow er of Equipment Technician? Yes December 27, 2024 3:28pm Name of Medical Power of Equipment Technician DTR, ALINA GALEAS AND TORIBIO ARTIS December 27, 2024 3:28pm Do you have a Healthcare Pow er of Equipment Technician? Yes January 07, 2025 3:29pm Name of Medical Power of Equipment Technician Marquis Artis January 07, 2025 3:29pm Living Will Yes September 24, 2024 1:52pm Do you have a Healthcare Pow er of Equipment Technician? Yes September 24, 2024 1:52pm Name of Medical Power of Equipment Technician DTR September 24, 2024 1:52pm Do you have a Healthcare Pow er of Equipment Technician? Yes December 17, 2024 4:42am Advance Directive Response Recorded Date/ Time Do you have a Healthcare Pow er of Equipment Technician? Yes November 28, 2024 1:41pm Name of Medical Power of Equipment Technician Raimundo Lu November 28, 2024 1:41pm Do you have a Healthcare Pow er of Equipment Technician? Yes December 27, 2024 3:28pm Name of Medical Power of Equipment Technician DTR, ALINA GALEAS AND TORIBIO ARTIS December 27, 2024 3:28pm Do you have a Healthcare Pow er of Equipment Technician? Yes January 07, 2025 3:29pm Name of Medical Power of Equipment Technician Marquis Artis January 07, 2025 3:29pm Do you have a Healthcare Pow er of Equipment Technician? Yes January 11, 2025 10:15am Name of Medical Power of Equipment Technician JENNIFER John January 11, 2025 10:15am Living Will Yes September 24, 2024 1:52pm Do you have a Healthcare Pow er of Equipment Technician? Yes September 24, 2024 1:52pm Name of Medical Power of Equipment Technician DTR September 24, 2024 1:52pm Do you have a Healthcare Pow er of Equipment Technician? Yes December 17, 2024 4:42am Reason for Referral Specialty Diagnoses / Procedures Referred By Contac t Referred To Contact CT IMAGING Diagnoses Peripheral vascular disease (HCC) Procedures CTA ABD/PEL LOWER EXTREM W IVCON CTA ABDL AORTA&BI ILIOFEM W/CONTRAST&POSTP Angélica Doan, DO [address] [place] [address] Ct Imaging Referral ID Status Reason Start Date Expiration Date V isits Requested Visits Authorized [id number] Open Auto-Generate d Referral 11/24/2021 12/24/2022 1 1 Referral ID Status Reason Start Date Expiration Date V isits Requested Visits Authorized [id number] Closed Auto-Generate d Referral 11/25/2021 01/09/2022 1 1 Specialty Diagnoses / Procedures Referred By Contac t Referred To Contact Urology Diagnoses Renal mass Procedures CONSULT TO UROLOGY OFFICE/OUTPATIENT NEW HIGH MDM 60-74 MINUTES Angélica Doan, DO [address] [place] [address] Referral ID Status Reason Start Date Expiration Date Visits Requested Visits Authorized [id number] Authorized PCP Requested Referral 12/09/2021 12/09/2022 1 1 Specialty Diagnoses / Procedures Referred By Contac t Referred To Contact CT IMAGING Diagnoses Other specified disorders of kidney and ureter 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 Procedures CT KIDNEY WO/W IVCON CT ABDOMEN W & W/O CONTRAST Spencer Boone MD [address] [place] [address] Ct Imaging Referral ID Status Reason Start Date Expiration Date V isits Requested Visits Authorized [id number] Closed Auto-Generate d Referral 01/04/2022 02/03/2023 1 1 Specialty Diagnoses / Procedures Referred By Contac t Referred To Contact CT IMAGING Diagnoses Opacity noted on imaging study Former cigarette smoker Atelectasis Procedures CT CHEST WO IVCON DIAGNOSTIC COMPUTED TOMOGRAPHY THORAX W/O CNTRSAlina Das MD [address] [place] [address] Ct Imaging Referral ID Status Reason Start Date Expiration Date Visits Requested Visits Authorized [id number] Pending Review Auto-Generat ed Referral 07/29/2022 08/28/2023 1 1 Specialty Diagnoses / Procedures Referred By Contac t Referred To Contact Alina Delvalle MD [address] [place] [address] Referral ID Status Reason Start Date Expiration Date Visits Re quested Visits Authorized [id number] Closed 1 1 Specialty Diagnoses / Procedures Referred By Contac t Referred To Contact Diagnoses 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) COPD with exacerbation (HCC) Maddison Renteria APRN.PRODUCE ASSISTANT [address] [place] [id number] Referral ID Status Reason Start Date Expiration Date Visits Re quested Visits Authorized [id number] Closed 1 1 Specialty Diagnoses / Procedures Referred By Contac t Referred To Contact Gastroenterology Diagnoses Left lower quadrant abdominal pain Diverticulitis Procedures CONSULT TO GASTROENTEROLOGY OFFICE/OUTPATIENT [facility] MDM 60-74 MINUTES Rosaura Suárez APRN.YARD CRANE OPERATOR [address] [place] [address] Referral ID Status Reason Start Date Expiration Date Visits Requested Visits Authorized [id number] Authorized PCP Requested Referral 01/10/2023 01/10/2024 1 1 Specialty Diagnoses / Procedures Referred By Contac t Referred To Contact [facility] Diagnoses Chronic bilateral thoracic back pain Lumbar pain Procedures CONSULT TO PHYSICAL THERAPY PHYSICAL THERAPY EVALUATION HIGH COMPLEX 45 MINS Rosaura Suárez APRN.YARD CRANE OPERATOR [address] [place] [address] [facility] [place] [address] [place] [address] Referral ID Status Reason Start Date Expiration Date Visits Requested Visits Authorized [id number] Authorized Auto-Generat ed Referral 07/18/2022 07/17/2023 99 99 Specialty Diagnoses / Procedures Referred By Contac t Referred To Contact XR IMAGING Diagnoses Lumbar pain Procedures XR LUMBAR GENERAL 3V AP/LAT/L5-S1 RADEX SPINE LUMBOSACRAL 2/3 VIEWS Rosaura Suárez CENTRAL SUPPLY TECH.YARD CRANE OPERATOR [address] [place] [address] [place] [address] Referral ID Status Reason Start Date Expiration Date V isits Requested Visits Authorized [id number] Closed Auto-Generate d Referral 03/23/2023 04/21/2024 1 1 Specialty Diagnoses / Procedures Referred By Contac t Referred To Contact XR IMAGING Diagnoses Chronic bilateral thoracic back pain Procedures XR THORACIC LIMITED 2V AP/LAT RADEX SPINE THORACIC 2 VIEWS Rosaura Suárez APRN.YARD CRANE OPERATOR [address] [place] [address] [place] [address] Referral ID Status Reason Start Date Expiration Date V isits Requested Visits Authorized [id number] Closed Auto-Generate d Referral 03/23/2023 04/21/2024 1 1 Specialty Diagnoses / Procedures Referred By Contac t Referred To Contact Pain Management Diagnoses Chronic bilateral thoracic back pain Procedures CONSULT TO PAIN MGT OFFICE/OUTPATIENT [facility] 60-74 MINUTES Rosaura Suárez APRN.YARD CRANE OPERATOR [address] [place] [address] Referral ID Status Reason Start Date Expiration Date Visits Requested Visits Authorized [id number] Authorized PCP Requested Referral 05/05/2024 1 1 Specialty Diagnoses / Procedures Referred By Contac t Referred To Contact CT IMAGING Diagnoses Interstitial pulmonary disease (HCC) Abnormal chest x-ray Procedures CT CHEST WO IVCON DIAGNOSTIC COMPUTED TOMOGRAPHY THORAX W/O Alina Bran MD [address] [place] [address] [place] [address] Referral ID Status Reason Start Date Expiration Date V isits Requested Visits Authorized [id number] Closed Auto-Generate d Referral 04/27/2022 06/20/2022 1 1 Specialty Diagnoses / Procedures Referred By Contac t Referred To Contact CT IMAGING Diagnoses Opacity noted on imaging study Former cigarette smoker Atelectasis Procedures CT CHEST WO IVCON DIAGNOSTIC COMPUTED TOMOGRAPHY THORAX W/O Alina Bran MD [address] [place] [address] [place] [address] Referral ID Status Reason Start Date Expiration Date V isits Requested Visits Authorized [id number] Closed Auto-Generate d Referral 07/29/2022 09/12/2022 1 1 Specialty Diagnoses / Procedures Referred By Contac t Referred To Contact Diagnoses Chronic obstructive pulmonary disease, unspecified COPD type (HCC) Alina Delvalle MD [address] [place] [address] Referral ID Status Reason Start Date Expiration Date Visits Re quested Visits Authorized [id number] Closed 1 1 Specialty Diagnoses / Procedures Referred By Contac t Referred To Contact [facility] Diagnoses Dysphagia, unspecified type Procedures CONSULT TO SPEECH THERAPY OFFICE/OUTPATIENT [facility] 60 MINUTES Maddison Renteria, CENTRAL SUPPLY TECH.[facility] [address] [place] [address] [facility] [address] [address] Referral ID Status Reason Start Date Expiration Date Visits Requested Visits Authorized [id number] Pending Review Auto-Generat ed Referral 10/25/2023 10/23/2024 1 1 Specialty Diagnoses / Procedures Referred By Contac t Referred To Contact [facility] Diagnoses Lymphedema Procedures CONSULT TO LYMPHEDEMA THERAPY OFFICE/OUTPATIENT [facility] 60 MINUTES Rosaura Suárez, CENTRAL SUPPLY TECH.YARD CRANE OPERATOR [address] [place] [address] [facility] [address] [address] Referral ID Status Reason Start Date Expiration Date Visits Requested Visits Authorized [id number] Authorized Auto-Generat ed Referral 11/16/2023 11/15/2024 1 1 Summary Purpose Family History Relationship Condition Age at Onset Recorded Date/T qian mother Cardiac disease Unknown Chief Complaint and Reason for Visit Chief Complaint 1 Y FU DYSPNEA DYSPNEA Reason for Visit Bilateral carotid ar suyapa stenosis Dyslipidemia Essential hypertension Chief Complaint 6 M FU left groin pain BACK Reason for Visit Bilateral carotid ar suyapa stenosis Dyslipidemia Essential hypertension Shortness of breath Chief Complaint 6 M FU left groin pain BACK Left lower quadrant pain LUMBAR SPRAIN Reason for Visit Bilateral carotid ar suyapa stenosis Dyslipidemia Essential hypertension Shortness of breath Chief Complaint Left lower quadrant pain LUMBAR SPRAIN back pain M54.16 Chief Complaint LUMBAR SPRAIN back pain M54.16 ACUTE COPD EXACERBATION Reason for Visit Hypoxia Acute exacerbation of chronic obstructive pulmonary disease Chief Complaint back pain M54.16 ACUTE COPD EXACERBATION ACUTE COPD EXACERBATION ACUTE COPD EXACERBATION ACUTE COPD EXACERBATION EKG ACUTE COPD EXACERBATION ACUTE COPD EXACERBATION ACUTE COPD EXACERBATION ACUTE COPD EXACERBATION SOB Reason for Visit Acute exacerbation o f chronic obstructive pulmonary disease Hypoxia Chief Complaint M54.16 ACUTE COPD EXACERBATION ACUTE COPD EXACERBATION ACUTE COPD EXACERBATION ACUTE COPD EXACERBATION EKG ACUTE COPD EXACERBATION ACUTE COPD EXACERBATION ACUTE COPD EXACERBATION ACUTE COPD EXACERBATION SOB Reason for Visit Acute exacerbation o f chronic obstructive pulmonary disease Hypoxia Chief Complaint M54.16 ACUTE COPD EXACERBATION ACUTE COPD EXACERBATION ACUTE COPD EXACERBATION ACUTE COPD EXACERBATION EKG ACUTE COPD EXACERBATION ACUTE COPD EXACERBATION ACUTE COPD EXACERBATION ACUTE COPD EXACERBATION SOB E-ORDER S/P [facility] 07/27/23 HYPOTENSION sob HYPOXIA 2/2 COVID 19 Reason for Visit Acute exacerbation o f chronic obstructive pulmonary disease Hypoxia Hypotension Bilateral carotid artery stenosis Chronic kidney disease Essential hypertension Shortness of breath COVID-19 History of TIA (transient ischemic attack) Hypoxia Pneumonia due to COVID-19 virus Bilateral carotid artery stenosis Chronic kidney disease Essential hypertension History of COPD Chief Complaint M54.16 ACUTE COPD EXACERBATION ACUTE COPD EXACERBATION ACUTE COPD EXACERBATION ACUTE COPD EXACERBATION EKG ACUTE COPD EXACERBATION ACUTE COPD EXACERBATION ACUTE COPD EXACERBATION ACUTE COPD EXACERBATION SOB E-ORDER S/P [facility] 07/27/23 HYPOTENSION sob HYPOXIA 2/2 COVID 19 HYPOXIA 2/2 COVID 19 HYPOXIA 2/2 COVID 19 Reason for Visit Acute exacerbation o f chronic obstructive pulmonary disease Hypoxia Hypotension Bilateral carotid artery stenosis Chronic kidney disease Essential hypertension Shortness of breath COVID-19 History of TIA (transient ischemic attack) Hypoxia Pneumonia due to COVID-19 virus Bilateral carotid artery stenosis Chronic kidney disease Essential hypertension History of COPD Chief Complaint M54.16 ACUTE COPD EXACERBATION ACUTE COPD EXACERBATION ACUTE COPD EXACERBATION ACUTE COPD EXACERBATION EKG ACUTE COPD EXACERBATION ACUTE COPD EXACERBATION ACUTE COPD EXACERBATION ACUTE COPD EXACERBATION SOB E-ORDER S/P [facility] 07/27/23 HYPOTENSION sob HYPOXIA 2/2 COVID 19 HYPOXIA 2/2 COVID 19 HYPOXIA 2/2 COVID 19 Occlusion and stenosis of bilateral carotid arteri Reason for Visit Acute exacerbation o f chronic obstructive pulmonary disease Hypoxia Hypotension COVID-19 Hypoxia Pneumonia due to COVID-19 virus Chief Complaint M54.16 ACUTE COPD EXACERBATION ACUTE COPD EXACERBATION ACUTE COPD EXACERBATION ACUTE COPD EXACERBATION EKG ACUTE COPD EXACERBATION ACUTE COPD EXACERBATION ACUTE COPD EXACERBATION ACUTE COPD EXACERBATION SOB E-ORDER S/P [facility] 07/27/23 HYPOTENSION sob HYPOXIA 2/2 COVID 19 HYPOXIA 2/2 COVID 19 HYPOXIA 2/2 COVID 19 Occlusion and stenosis of bilateral carotid arteri NSTEMI,COPD EXACERBATION Reason for Visit Acute exacerbation o f chronic obstructive pulmonary disease Hypoxia Hypotension COVID-19 Hypoxia Pneumonia due to COVID-19 virus Chief Complaint ACUTE COPD EXACERBAT ION ACUTE COPD EXACERBATION ACUTE COPD EXACERBATION ACUTE COPD EXACERBATION EKG ACUTE COPD EXACERBATION ACUTE COPD EXACERBATION ACUTE COPD EXACERBATION ACUTE COPD EXACERBATION SOB E-ORDER S/P [facility] 07/27/23 HYPOTENSION sob HYPOXIA 2/2 COVID 19 HYPOXIA 2/2 COVID 19 HYPOXIA 2/2 COVID 19 Occlusion and stenosis of bilateral carotid arteri NON-STEMI, EXACERBATION OF COPD, INTRACTABLE RIGHT NON-STEMI, EXACERBATION OF COPD, INTRACTABLE RIGHT NON-STEMI, EXACERBATION OF COPD, INTRACTABLE RIGHT NON-STEMI, EXACERBATION OF COPD, INTRACTABLE RIGHT NON-STEMI, EXACERBATION OF COPD, INTRACTABLE RIGHT NON-STEMI, EXACERBATION OF COPD, INTRACTABLE RIGHT NON-STEMI, EXACERBATION OF COPD, INTRACTABLE RIGHT NON-STEMI, EXACERBATION OF COPD, INTRACTABLE RIGHT NON-STEMI, EXACERBATION OF COPD, INTRACTABLE RIGHT NON-STEMI, EXACERBATION OF COPD, INTRACTABLE RIGHT NON-STEMI, EXACERBATION OF COPD, INTRACTABLE RIGHT NON-STEMI, EXACERBATION OF COPD, INTRACTABLE RIGHT Reason for Visit Acute exacerbation o f chronic obstructive pulmonary disease Hypoxia Bilateral carotid artery stenosis Essential hypertension Hypotension Shortness of breath Bilateral carotid artery stenosis Essential hypertension COVID-19 Hypoxia Pneumonia due to COVID-19 virus Acute hypoxic respiratory failure Bilateral carotid artery stenosis Elevated troponin I level Heart failure due to high blood pressure Hyperkalemia Non-STEMI (non-ST elevated myocardial infarction) Shortness of breath CKD (chronic kidney disease), stage III Hypertension Chief Complaint ACUTE COPD EXACERBAT ION ACUTE COPD EXACERBATION ACUTE COPD EXACERBATION ACUTE COPD EXACERBATION EKG ACUTE COPD EXACERBATION ACUTE COPD EXACERBATION ACUTE COPD EXACERBATION ACUTE COPD EXACERBATION SOB E-ORDER S/P [facility] 07/27/23 HYPOTENSION sob HYPOXIA 2/2 COVID 19 HYPOXIA 2/2 COVID 19 HYPOXIA 2/2 COVID 19 Occlusion and stenosis of bilateral carotid arteri NON-STEMI, EXACERBATION OF COPD, INTRACTABLE RIGHT NON-STEMI, EXACERBATION OF COPD, INTRACTABLE RIGHT NON-STEMI, EXACERBATION OF COPD, INTRACTABLE RIGHT NON-STEMI, EXACERBATION OF COPD, INTRACTABLE RIGHT NON-STEMI, EXACERBATION OF COPD, INTRACTABLE RIGHT NON-STEMI, EXACERBATION OF COPD, INTRACTABLE RIGHT NON-STEMI, EXACERBATION OF COPD, INTRACTABLE RIGHT NON-STEMI, EXACERBATION OF COPD, INTRACTABLE RIGHT NON-STEMI, EXACERBATION OF COPD, INTRACTABLE RIGHT NON-STEMI, EXACERBATION OF COPD, INTRACTABLE RIGHT NON-STEMI, EXACERBATION OF COPD, INTRACTABLE RIGHT NON-STEMI, EXACERBATION OF COPD, INTRACTABLE RIGHT NON-STEMI, EXACERBATION OF COPD 2 UNITS PRBC Reason for Visit Acute exacerbation o f chronic obstructive pulmonary disease Hypoxia Bilateral carotid artery stenosis Essential hypertension Hypotension Shortness of breath Bilateral carotid artery stenosis Essential hypertension COVID-19 Hypoxia Pneumonia due to COVID-19 virus Acute hypoxic respiratory failure Bilateral carotid artery stenosis Elevated troponin I level Heart failure due to high blood pressure Hyperkalemia Non-STEMI (non-ST elevated myocardial infarction) Shortness of breath CKD (chronic kidney disease), stage III Hypertension Acute hypoxic respiratory failure Chronic heart failure with preserved ejection fraction (HFpEF) Debility Hyperlipidemia Influenza A Non-STEMI (non-ST elevated myocardial infarction) Right lumbar radiculopathy RLS (restless legs syndrome) TIA (transient ischemic attack) Acute exacerbation of chronic obstructive pulmonary disease Chief Complaint ACUTE COPD EXACERBAT ION ACUTE COPD EXACERBATION ACUTE COPD EXACERBATION ACUTE COPD EXACERBATION EKG ACUTE COPD EXACERBATION ACUTE COPD EXACERBATION ACUTE COPD EXACERBATION ACUTE COPD EXACERBATION SOB E-ORDER S/P [facility] 07/27/23 HYPOTENSION sob HYPOXIA 2/2 COVID 19 HYPOXIA 2/2 COVID 19 HYPOXIA 2/2 COVID 19 Occlusion and stenosis of bilateral carotid arteri NON-STEMI, EXACERBATION OF COPD, INTRACTABLE RIGHT NON-STEMI, EXACERBATION OF COPD, INTRACTABLE RIGHT NON-STEMI, EXACERBATION OF COPD, INTRACTABLE RIGHT NON-STEMI, EXACERBATION OF COPD, INTRACTABLE RIGHT NON-STEMI, EXACERBATION OF COPD, INTRACTABLE RIGHT NON-STEMI, EXACERBATION OF COPD, INTRACTABLE RIGHT NON-STEMI, EXACERBATION OF COPD, INTRACTABLE RIGHT NON-STEMI, EXACERBATION OF COPD, INTRACTABLE RIGHT NON-STEMI, EXACERBATION OF COPD, INTRACTABLE RIGHT NON-STEMI, EXACERBATION OF COPD, INTRACTABLE RIGHT NON-STEMI, EXACERBATION OF COPD, INTRACTABLE RIGHT NON-STEMI, EXACERBATION OF COPD, INTRACTABLE RIGHT NON-STEMI, EXACERBATION OF COPD 2 UNITS PRBC NON-STEMI, EXACERBATION OF COPD Reason for Visit Acute exacerbation o f chronic obstructive pulmonary disease Hypoxia Bilateral carotid artery stenosis Essential hypertension Hypotension Shortness of breath Bilateral carotid artery stenosis Essential hypertension COVID-19 Hypoxia Pneumonia due to COVID-19 virus Acute hypoxic respiratory failure Bilateral carotid artery stenosis Elevated troponin I level Heart failure due to high blood pressure Hyperkalemia Non-STEMI (non-ST elevated myocardial infarction) Shortness of breath CKD (chronic kidney disease), stage III Hypertension Acute hypoxic respiratory failure Anemia Chronic heart failure with preserved ejection fraction (HFpEF) Debility Hyperlipidemia Influenza A Non-STEMI (non-ST elevated myocardial infarction) Right lumbar radiculopathy RLS (restless legs syndrome) TIA (transient ischemic attack) Acute exacerbation of chronic obstructive pulmonary disease Chief Complaint ACUTE COPD EXACERBAT ION ACUTE COPD EXACERBATION ACUTE COPD EXACERBATION ACUTE COPD EXACERBATION EKG ACUTE COPD EXACERBATION ACUTE COPD EXACERBATION ACUTE COPD EXACERBATION ACUTE COPD EXACERBATION SOB E-ORDER S/P [facility] 07/27/23 HYPOTENSION sob HYPOXIA 2/2 COVID 19 HYPOXIA 2/2 COVID 19 HYPOXIA 2/2 COVID 19 Occlusion and stenosis of bilateral carotid arteri NON-STEMI, EXACERBATION OF COPD, INTRACTABLE RIGHT NON-STEMI, EXACERBATION OF COPD, INTRACTABLE RIGHT NON-STEMI, EXACERBATION OF COPD, INTRACTABLE RIGHT NON-STEMI, EXACERBATION OF COPD, INTRACTABLE RIGHT NON-STEMI, EXACERBATION OF COPD, INTRACTABLE RIGHT NON-STEMI, EXACERBATION OF COPD, INTRACTABLE RIGHT NON-STEMI, EXACERBATION OF COPD, INTRACTABLE RIGHT NON-STEMI, EXACERBATION OF COPD, INTRACTABLE RIGHT NON-STEMI, EXACERBATION OF COPD, INTRACTABLE RIGHT NON-STEMI, EXACERBATION OF COPD, INTRACTABLE RIGHT NON-STEMI, EXACERBATION OF COPD, INTRACTABLE RIGHT NON-STEMI, EXACERBATION OF COPD, INTRACTABLE RIGHT NON-STEMI, EXACERBATION OF COPD 2 UNITS PRBC NON-STEMI, EXACERBATION OF COPD Diverticulitis of intestine, part unspecified, wit Reason for Visit Acute exacerbation o f chronic obstructive pulmonary disease Hypoxia Bilateral carotid artery stenosis Essential hypertension Hypotension Shortness of breath Bilateral carotid artery stenosis Essential hypertension COVID-19 Hypoxia Pneumonia due to COVID-19 virus Bilateral carotid artery stenosis Elevated troponin I level Heart failure due to high blood pressure Hyperkalemia Non-STEMI (non-ST elevated myocardial infarction) Shortness of breath CKD (chronic kidney disease), stage III Hypertension Anemia Chronic heart failure with preserved ejection fraction (HFpEF) Debility Hyperlipidemia Influenza A Non-STEMI (non-ST elevated myocardial infarction) Right lumbar radiculopathy RLS (restless legs syndrome) TIA (transient ischemic attack) Acute exacerbation of chronic obstructive pulmonary disease Chief Complaint ACUTE COPD EXACERBAT ION ACUTE COPD EXACERBATION ACUTE COPD EXACERBATION ACUTE COPD EXACERBATION EKG ACUTE COPD EXACERBATION ACUTE COPD EXACERBATION ACUTE COPD EXACERBATION ACUTE COPD EXACERBATION SOB E-ORDER S/P [facility] 07/27/23 HYPOTENSION sob HYPOXIA 2/2 COVID 19 HYPOXIA 2/2 COVID 19 HYPOXIA 2/2 COVID 19 Occlusion and stenosis of bilateral carotid arteri NON-STEMI, EXACERBATION OF COPD, INTRACTABLE RIGHT NON-STEMI, EXACERBATION OF COPD, INTRACTABLE RIGHT NON-STEMI, EXACERBATION OF COPD, INTRACTABLE RIGHT NON-STEMI, EXACERBATION OF COPD, INTRACTABLE RIGHT NON-STEMI, EXACERBATION OF COPD, INTRACTABLE RIGHT NON-STEMI, EXACERBATION OF COPD, INTRACTABLE RIGHT NON-STEMI, EXACERBATION OF COPD, INTRACTABLE RIGHT NON-STEMI, EXACERBATION OF COPD, INTRACTABLE RIGHT NON-STEMI, EXACERBATION OF COPD, INTRACTABLE RIGHT NON-STEMI, EXACERBATION OF COPD, INTRACTABLE RIGHT NON-STEMI, EXACERBATION OF COPD, INTRACTABLE RIGHT NON-STEMI, EXACERBATION OF COPD, INTRACTABLE RIGHT NON-STEMI, EXACERBATION OF COPD 2 UNITS PRBC NON-STEMI, EXACERBATION OF COPD Diverticulitis of intestine, part unspecified, wit SOB Reason for Visit Acute exacerbation o f chronic obstructive pulmonary disease Hypoxia Bilateral carotid artery stenosis Essential hypertension Hypotension Shortness of breath Bilateral carotid artery stenosis Essential hypertension COVID-19 Hypoxia Pneumonia due to COVID-19 virus Bilateral carotid artery stenosis Elevated troponin I level Heart failure due to high blood pressure Hyperkalemia Non-STEMI (non-ST elevated myocardial infarction) Shortness of breath CKD (chronic kidney disease), stage III Hypertension Anemia Chronic heart failure with preserved ejection fraction (HFpEF) Debility Hyperlipidemia Influenza A Non-STEMI (non-ST elevated myocardial infarction) Right lumbar radiculopathy RLS (restless legs syndrome) TIA (transient ischemic attack) Acute exacerbation of chronic obstructive pulmonary disease Chief Complaint ACUTE COPD EXACERBAT ION ACUTE COPD EXACERBATION ACUTE COPD EXACERBATION ACUTE COPD EXACERBATION EKG ACUTE COPD EXACERBATION ACUTE COPD EXACERBATION ACUTE COPD EXACERBATION ACUTE COPD EXACERBATION SOB E-ORDER S/P [facility] 07/27/23 HYPOTENSION sob HYPOXIA 2/2 COVID 19 HYPOXIA 2/2 COVID 19 HYPOXIA 2/2 COVID 19 Occlusion and stenosis of bilateral carotid arteri NON-STEMI, EXACERBATION OF COPD, INTRACTABLE RIGHT NON-STEMI, EXACERBATION OF COPD, INTRACTABLE RIGHT NON-STEMI, EXACERBATION OF COPD, INTRACTABLE RIGHT NON-STEMI, EXACERBATION OF COPD, INTRACTABLE RIGHT NON-STEMI, EXACERBATION OF COPD, INTRACTABLE RIGHT NON-STEMI, EXACERBATION OF COPD, INTRACTABLE RIGHT NON-STEMI, EXACERBATION OF COPD, INTRACTABLE RIGHT NON-STEMI, EXACERBATION OF COPD, INTRACTABLE RIGHT NON-STEMI, EXACERBATION OF COPD, INTRACTABLE RIGHT NON-STEMI, EXACERBATION OF COPD, INTRACTABLE RIGHT NON-STEMI, EXACERBATION OF COPD, INTRACTABLE RIGHT NON-STEMI, EXACERBATION OF COPD, INTRACTABLE RIGHT NON-STEMI, EXACERBATION OF COPD 2 UNITS PRBC NON-STEMI, EXACERBATION OF COPD Diverticulitis of intestine, part unspecified, wit NOSOCOMIAL PNEYMONIA WITH [id number] HYPOXIC Reason for Visit Acute exacerbation o f chronic obstructive pulmonary disease Hypoxia Bilateral carotid artery stenosis Essential hypertension Hypotension Shortness of breath Bilateral carotid artery stenosis Essential hypertension COVID-19 Hypoxia Pneumonia due to COVID-19 virus Bilateral carotid artery stenosis Elevated troponin I level Heart failure due to high blood pressure Hyperkalemia Non-STEMI (non-ST elevated myocardial infarction) Shortness of breath CKD (chronic kidney disease), stage III Hypertension Anemia Chronic heart failure with preserved ejection fraction (HFpEF) Debility Hyperlipidemia Influenza A Non-STEMI (non-ST elevated myocardial infarction) Right lumbar radiculopathy RLS (restless legs syndrome) TIA (transient ischemic attack) Acute exacerbation of chronic obstructive pulmonary disease Chief Complaint ACUTE COPD EXACERBAT ION ACUTE COPD EXACERBATION ACUTE COPD EXACERBATION ACUTE COPD EXACERBATION EKG ACUTE COPD EXACERBATION ACUTE COPD EXACERBATION ACUTE COPD EXACERBATION ACUTE COPD EXACERBATION SOB E-ORDER S/P [facility] 07/27/23 HYPOTENSION sob HYPOXIA 2/2 COVID 19 HYPOXIA 2/2 COVID 19 HYPOXIA 2/2 COVID 19 Occlusion and stenosis of bilateral carotid arteri NON-STEMI, EXACERBATION OF COPD, INTRACTABLE RIGHT NON-STEMI, EXACERBATION OF COPD, INTRACTABLE RIGHT NON-STEMI, EXACERBATION OF COPD, INTRACTABLE RIGHT NON-STEMI, EXACERBATION OF COPD, INTRACTABLE RIGHT NON-STEMI, EXACERBATION OF COPD, INTRACTABLE RIGHT NON-STEMI, EXACERBATION OF COPD, INTRACTABLE RIGHT NON-STEMI, EXACERBATION OF COPD, INTRACTABLE RIGHT NON-STEMI, EXACERBATION OF COPD, INTRACTABLE RIGHT NON-STEMI, EXACERBATION OF COPD, INTRACTABLE RIGHT NON-STEMI, EXACERBATION OF COPD, INTRACTABLE RIGHT NON-STEMI, EXACERBATION OF COPD, INTRACTABLE RIGHT NON-STEMI, EXACERBATION OF COPD, INTRACTABLE RIGHT NON-STEMI, EXACERBATION OF COPD 2 UNITS PRBC NON-STEMI, EXACERBATION OF COPD Diverticulitis of intestine, part unspecified, wit NOSOCOMIAL PNEYMONIA WITH [id number] HYPOXIC NOSOCOMIAL PNEYMONIA WITH [id number] HYPOXIC NOSOCOMIAL PNEYMONIA WITH [id number] HYPOXIC NOSOCOMIAL PNEYMONIA WITH [id number] HYPOXIC Reason for Visit Acute exacerbation o f chronic obstructive pulmonary disease Hypoxia Bilateral carotid artery stenosis Essential hypertension Hypotension Shortness of breath Bilateral carotid artery stenosis Essential hypertension COVID-19 Hypoxia Pneumonia due to COVID-19 virus Bilateral carotid artery stenosis Elevated troponin I level Heart failure due to high blood pressure Hyperkalemia Shortness of breath CKD (chronic kidney disease), stage III Hypertension Non-STEMI (non-ST elevated myocardial infarction) Anemia Chronic heart failure with preserved ejection fraction (HFpEF) Debility Hyperlipidemia Right lumbar radiculopathy RLS (restless legs syndrome) TIA (transient ischemic attack) Acute exacerbation of chronic obstructive pulmonary disease Influenza A Non-STEMI (non-ST elevated myocardial infarction) Pneumonia Respiratory insufficiency Chief Complaint ACUTE COPD EXACERBAT ION ACUTE COPD EXACERBATION ACUTE COPD EXACERBATION ACUTE COPD EXACERBATION EKG ACUTE COPD EXACERBATION ACUTE COPD EXACERBATION ACUTE COPD EXACERBATION ACUTE COPD EXACERBATION SOB E-ORDER S/P [facility] 07/27/23 HYPOTENSION sob HYPOXIA 2/2 COVID 19 HYPOXIA 2/2 COVID 19 HYPOXIA 2/2 COVID 19 Occlusion and stenosis of bilateral carotid arteri NON-STEMI, EXACERBATION OF COPD, INTRACTABLE RIGHT NON-STEMI, EXACERBATION OF COPD, INTRACTABLE RIGHT NON-STEMI, EXACERBATION OF COPD, INTRACTABLE RIGHT NON-STEMI, EXACERBATION OF COPD, INTRACTABLE RIGHT NON-STEMI, EXACERBATION OF COPD, INTRACTABLE RIGHT NON-STEMI, EXACERBATION OF COPD, INTRACTABLE RIGHT NON-STEMI, EXACERBATION OF COPD, INTRACTABLE RIGHT NON-STEMI, EXACERBATION OF COPD, INTRACTABLE RIGHT NON-STEMI, EXACERBATION OF COPD, INTRACTABLE RIGHT NON-STEMI, EXACERBATION OF COPD, INTRACTABLE RIGHT NON-STEMI, EXACERBATION OF COPD, INTRACTABLE RIGHT NON-STEMI, EXACERBATION OF COPD, INTRACTABLE RIGHT NON-STEMI, EXACERBATION OF COPD 2 UNITS PRBC NON-STEMI, EXACERBATION OF COPD Diverticulitis of intestine, part unspecified, wit NOSOCOMIAL PNEYMONIA WITH [id number] HYPOXIC NOSOCOMIAL PNEYMONIA WITH [id number] HYPOXIC NOSOCOMIAL PNEYMONIA WITH [id number] HYPOXIC NOSOCOMIAL PNEYMONIA WITH [id number] HYPOXIC HYPOXIA Reason for Visit Acute exacerbation o f chronic obstructive pulmonary disease Hypoxia Hypotension Shortness of breath COVID-19 Hypoxia Pneumonia due to COVID-19 virus Acute hypoxic respiratory failure Elevated troponin I level Hyperkalemia Non-STEMI (non-ST elevated myocardial infarction) Shortness of breath Acute exacerbation of chronic obstructive pulmonary disease Acute hypoxic respiratory failure Influenza A Non-STEMI (non-ST elevated myocardial infarction) Respiratory insufficiency Depression GERD (gastroesophageal reflux disease) Iron deficiency anemia Type 2 diabetes mellitus with hyperglycemia COPD (chronic obstructive pulmonary disease) Acute hypoxic respiratory failure Acute on chronic heart failure with preserved ejection fraction (HFpEF) Non-STEMI (non-ST elevated myocardial infarction) Chief Complaint SOB E-ORDER S/P [facility] 07/27/23 HYPOTENSION sob HYPOXIA 2/2 COVID 19 HYPOXIA 2/2 COVID 19 HYPOXIA 2/2 COVID 19 Occlusion and stenosis of bilateral carotid arteri NON-STEMI, EXACERBATION OF COPD, INTRACTABLE RIGHT NON-STEMI, EXACERBATION OF COPD, INTRACTABLE RIGHT NON-STEMI, EXACERBATION OF COPD, INTRACTABLE RIGHT NON-STEMI, EXACERBATION OF COPD, INTRACTABLE RIGHT NON-STEMI, EXACERBATION OF COPD, INTRACTABLE RIGHT NON-STEMI, EXACERBATION OF COPD, INTRACTABLE RIGHT NON-STEMI, EXACERBATION OF COPD, INTRACTABLE RIGHT NON-STEMI, EXACERBATION OF COPD, INTRACTABLE RIGHT NON-STEMI, EXACERBATION OF COPD, INTRACTABLE RIGHT NON-STEMI, EXACERBATION OF COPD, INTRACTABLE RIGHT NON-STEMI, EXACERBATION OF COPD, INTRACTABLE RIGHT NON-STEMI, EXACERBATION OF COPD, INTRACTABLE RIGHT NON-STEMI, EXACERBATION OF COPD 2 UNITS PRBC NON-STEMI, EXACERBATION OF COPD Diverticulitis of intestine, part unspecified, wit NOSOCOMIAL PNEYMONIA WITH [id number] HYPOXIC NOSOCOMIAL PNEYMONIA WITH [id number] HYPOXIC NOSOCOMIAL PNEYMONIA WITH [id number] HYPOXIC NOSOCOMIAL PNEYMONIA WITH [id number] HYPOXIC HYPOXIA DIVERTICULITIS, ? UTI, HYPOKALEMIA Reason for Visit Hypotension Shortness of breath COVID-19 Hypoxia Pneumonia due to COVID-19 virus Acute hypoxic respiratory failure Elevated troponin I level Hyperkalemia Non-STEMI (non-ST elevated myocardial infarction) Shortness of breath Acute exacerbation of chronic obstructive pulmonary disease Acute hypoxic respiratory failure Influenza A Non-STEMI (non-ST elevated myocardial infarction) Respiratory insufficiency Depression GERD (gastroesophageal reflux disease) Iron deficiency anemia Type 2 diabetes mellitus with hyperglycemia COPD (chronic obstructive pulmonary disease) Acute hypoxic respiratory failure Acute on chronic heart failure with preserved ejection fraction (HFpEF) Non-STEMI (non-ST elevated myocardial infarction) Acute hypokalemia Diverticulitis History of chronic heart failure History of diabetes mellitus History of hypertension Urinary tract infection History of COPD Chief Complaint SOB E-ORDER S/P [facility] 07/27/23 HYPOTENSION sob HYPOXIA 2/2 COVID 19 HYPOXIA 2/2 COVID 19 HYPOXIA 2/2 COVID 19 Occlusion and stenosis of bilateral carotid arteri NON-STEMI, EXACERBATION OF COPD, INTRACTABLE RIGHT NON-STEMI, EXACERBATION OF COPD, INTRACTABLE RIGHT NON-STEMI, EXACERBATION OF COPD, INTRACTABLE RIGHT NON-STEMI, EXACERBATION OF COPD, INTRACTABLE RIGHT NON-STEMI, EXACERBATION OF COPD, INTRACTABLE RIGHT NON-STEMI, EXACERBATION OF COPD, INTRACTABLE RIGHT NON-STEMI, EXACERBATION OF COPD, INTRACTABLE RIGHT NON-STEMI, EXACERBATION OF COPD, INTRACTABLE RIGHT NON-STEMI, EXACERBATION OF COPD, INTRACTABLE RIGHT NON-STEMI, EXACERBATION OF COPD, INTRACTABLE RIGHT NON-STEMI, EXACERBATION OF COPD, INTRACTABLE RIGHT NON-STEMI, EXACERBATION OF COPD, INTRACTABLE RIGHT NON-STEMI, EXACERBATION OF COPD 2 UNITS PRBC NON-STEMI, EXACERBATION OF COPD Diverticulitis of intestine, part unspecified, wit NOSOCOMIAL PNEYMONIA WITH [id number] HYPOXIC NOSOCOMIAL PNEYMONIA WITH [id number] HYPOXIC NOSOCOMIAL PNEYMONIA WITH [id number] HYPOXIC NOSOCOMIAL PNEYMONIA WITH [id number] HYPOXIC HYPOXIA DIVERTICULITIS, ? UTI, HYPOKALEMIA DIVERTICULITIS, ? UTI, HYPOKALEMIA DIVERTICULITIS, ? UTI, HYPOKALEMIA DIVERTICULITIS, ? UTI, HYPOKALEMIA Reason for Visit Hypotension Shortness of breath COVID-19 Hypoxia Pneumonia due to COVID-19 virus Acute hypoxic respiratory failure Elevated troponin I level Hyperkalemia Non-STEMI (non-ST elevated myocardial infarction) Shortness of breath Acute exacerbation of chronic obstructive pulmonary disease Acute hypoxic respiratory failure Influenza A Non-STEMI (non-ST elevated myocardial infarction) Respiratory insufficiency Depression GERD (gastroesophageal reflux disease) Iron deficiency anemia Type 2 diabetes mellitus with hyperglycemia Acute hypoxic respiratory failure Acute on chronic heart failure with preserved ejection fraction (HFpEF) Non-STEMI (non-ST elevated myocardial infarction) Acute hypokalemia Diverticulitis History of chronic heart failure History of diabetes mellitus History of hypertension Urinary tract infection History of COPD Chief Complaint SOB E-ORDER S/P [facility] 07/27/23 HYPOTENSION sob HYPOXIA 2/2 COVID 19 HYPOXIA 2/2 COVID 19 HYPOXIA 2/2 COVID 19 Occlusion and stenosis of bilateral carotid arteri NON-STEMI, EXACERBATION OF COPD, INTRACTABLE RIGHT NON-STEMI, EXACERBATION OF COPD, INTRACTABLE RIGHT NON-STEMI, EXACERBATION OF COPD, INTRACTABLE RIGHT NON-STEMI, EXACERBATION OF COPD, INTRACTABLE RIGHT NON-STEMI, EXACERBATION OF COPD, INTRACTABLE RIGHT NON-STEMI, EXACERBATION OF COPD, INTRACTABLE RIGHT NON-STEMI, EXACERBATION OF COPD, INTRACTABLE RIGHT NON-STEMI, EXACERBATION OF COPD, INTRACTABLE RIGHT NON-STEMI, EXACERBATION OF COPD, INTRACTABLE RIGHT NON-STEMI, EXACERBATION OF COPD, INTRACTABLE RIGHT NON-STEMI, EXACERBATION OF COPD, INTRACTABLE RIGHT NON-STEMI, EXACERBATION OF COPD, INTRACTABLE RIGHT NON-STEMI, EXACERBATION OF COPD 2 UNITS PRBC NON-STEMI, EXACERBATION OF COPD Diverticulitis of intestine, part unspecified, wit NOSOCOMIAL PNEYMONIA WITH [id number] HYPOXIC NOSOCOMIAL PNEYMONIA WITH [id number] HYPOXIC NOSOCOMIAL PNEYMONIA WITH [id number] HYPOXIC NOSOCOMIAL PNEYMONIA WITH [id number] HYPOXIC HYPOXIA DIVERTICULITIS, ? UTI, HYPOKALEMIA DIVERTICULITIS, ? UTI, HYPOKALEMIA DIVERTICULITIS, ? UTI, HYPOKALEMIA DIVERTICULITIS, ? UTI, HYPOKALEMIA Reason for Visit Hypotension Shortness of breath COVID-19 Hypoxia Pneumonia due to COVID-19 virus Acute hypoxic respiratory failure Elevated troponin I level Hyperkalemia Non-STEMI (non-ST elevated myocardial infarction) Shortness of breath Acute exacerbation of chronic obstructive pulmonary disease Acute hypoxic respiratory failure Influenza A Non-STEMI (non-ST elevated myocardial infarction) Respiratory insufficiency Depression GERD (gastroesophageal reflux disease) Iron deficiency anemia Type 2 diabetes mellitus with hyperglycemia Acute hypoxic respiratory failure Acute on chronic heart failure with preserved ejection fraction (HFpEF) Non-STEMI (non-ST elevated myocardial infarction) Chief Complaint Admit Date HYPOMAGNESEMIA SEVERE HYPOCALCEMIA Novem 2023 8:44pm HYPOMAGNESEMIA SEVERE HYPOCALCEMIA Novem 2023 7:59am HYPOMAGNESEMIA SEVERE HYPOCALCEMIA Novem 2023 12:20pm 3 M FU August 03, 2024 9 :50am Reason for Visit Admit Date Acute hypokalemia June 06, 2024 8:44pm Anemia June 06, 2024 8:44pm Auditory hallucination June 06 8:44pm Dehydration June 06, 2024 8:44pm Depression June 06, 2024 8:44pm Hypocalcemia June 06, 2024 8:44pm Hypomagnesemia June 06, 2024 8:44pm Renal mass, right June 06, 2024 8:44pm Type 2 diabetes mellitus with hyperglyce eduin June 06, 2024 8:44pm Adverse drug reaction June 06 8:44pm Diarrhea June 06, 2024 8:44pm Metabolic encephalopathy June 06, 2024 8:44pm Acute diverticulitis June 06, 2024 8:44pm Achalasia August 03, 2024 9 :50am Esophageal dysmotility August 03 9:50am Achalasia September 27, 2024 5:3 3am Chief Complaint Admit Date 3 M FU August 03, 2024 9 :50am 9 M FU October 17, 2024 1:41 pm BILAT CAROTID BRUIT November 02, 2024 8:4 2am Reason for Visit Admit Date Achalasia August 03, 2024 9 :50am Esophageal dysmotility August 03 9:50am Achalasia September 27, 2024 5:3 3am Bilateral carotid bruits October 17, 2024 1:41pm High cholesterol October 17, 2024 1:41 pm History of chronic heart failure October 172024 1:41pm On home oxygen therapy October 17, 2024 1 :41pm Hypertension October 17, 2024 1:41 pm Chief Complaint Admit Date 3 M FU August 03, 2024 9 :50am 9 M FU October 17, 2024 1:41 pm BILAT CAROTID BRUIT November 02, 2024 8:4 2am ABD PAIN November 28, 2024 1:31p m Chief Complaint Admit Date 9 M FU October 17, 2024 1:41 pm BILAT CAROTID BRUIT November 02, 2024 8:4 2am ABD PAIN November 28, 2024 1:31p m RUE; RT HAND PAIN December 05, 2024 9:30a m RUE; RT HAND PAIN December 05, 2024 10:44 am Reason for Visit Admit Date Achalasia September 27, 2024 5:3 3am Bilateral carotid bruits October 17, 2024 1:41pm High cholesterol October 17, 2024 1:41 pm History of chronic heart failure October 172024 1:41pm On home oxygen therapy October 17, 2024 1 :41pm Hypertension October 17, 2024 1:41 pm Chief Complaint Admit Date 9 M FU October 17, 2024 1:41 pm BILAT CAROTID BRUIT November 02, 2024 8:4 2am ABD PAIN November 28, 2024 1:31p m RUE; RT HAND PAIN December 05, 2024 9:30a m RUE; RT HAND PAIN December 05, 2024 10:44 am gi bleed December 17, 2024 4:41a m Chief Complaint Admit Date 9 M FU October 17, 2024 1:41 pm BILAT CAROTID BRUIT November 02, 2024 8:4 2am ABD PAIN November 28, 2024 1:31p m RUE; RT HAND PAIN December 05, 2024 9:30a m RUE; RT HAND PAIN December 05, 2024 10:44 am gi bleed December 17, 2024 4:41a m ER FU RECTAL BLEEDING INFLAMMATION December 18, 2024 8:55am Reason for Visit Admit Date Achalasia September 27, 2024 5:3 3am Bilateral carotid bruits October 17, 2024 1:41pm High cholesterol October 17, 2024 1:41 pm History of chronic heart failure October 172024 1:41pm On home oxygen therapy October 17, 2024 1 :41pm Hypertension October 17, 2024 1:41 pm Colitis December 18, 2024 8:55a m GI (gastrointestinal bleed) December 18 8:55am Diarrhea December 18, 2024 8:55a m Reason for Visit Admit Date Achalasia September 27, 2024 5:3 3am Bilateral carotid bruits October 17, 2024 1:41pm High cholesterol October 17, 2024 1:41 pm History of chronic heart failure October 172024 1:41pm On home oxygen therapy October 17, 2024 1 :41pm Hypertension October 17, 2024 1:41 pm Diarrhea December 18, 2024 8:55a m Colitis December 18, 2024 8:55a m GI (gastrointestinal bleed) December 18 8:55am Anemia January 01, 2025 1:51 pm GI bleed January 01, 2025 1:51 pm Chief Complaint Admit Date 9 M FU October 17, 2024 1:41 pm BILAT CAROTID BRUIT November 02, 2024 8:4 2am ABD PAIN November 28, 2024 1:31p m RUE; RT HAND PAIN December 05, 2024 9:30a m RUE; RT HAND PAIN December 05, 2024 10:44 am gi bleed December 17, 2024 4:41a m ER FU RECTAL BLEEDING INFLAMMATION December 18, 2024 8:55am Fall January 07, 2025 3:25 pm Chief Complaint Admit Date 9 M FU October 17, 2024 1:41 pm BILAT CAROTID BRUIT November 02, 2024 8:4 2am ABD PAIN November 28, 2024 1:31p m RUE; RT HAND PAIN December 05, 2024 9:30a m RUE; RT HAND PAIN December 05, 2024 10:44 am gi bleed December 17, 2024 4:41a m ER FU RECTAL BLEEDING INFLAMMATION December 18, 2024 8:55am Fall January 07, 2025 3:25 pm SEPSIS, UGIB, PNEUMONIA January 11, 2025 2:08pm Additional Source Comments Source Comments (unrecognize d section and content) In the event this informatio n is protected by the Federal Confidentiality of Alcohol and Drug Abuse Patient Records regulations: The Federal rules restrict any use of the information to criminally investigate or prosecute any alcohol or drug abuse patient.[facility] the event this information is protected by the Federal Confidentiality of Alcohol and Drug Abuse Patient Records regulations: The Federal rules restrict any use of the information to criminally investigate or prosecute any alcohol or drug abuse patient.[facility] the event this information is protected by the Federal Confidentiality of Alcohol and Drug Abuse Patient Records regulations: The Federal rules restrict any use of the information to criminally investigate or prosecute any alcohol or drug abuse patient.[facility] the event this information is protected by the Federal Confidentiality of Alcohol and Drug Abuse Patient Records regulations: The Federal rules restrict any use of the information to criminally investigate or prosecute any alcohol or drug abuse patient.[facility] the event this information is protected by the Federal Confidentiality of Alcohol and Drug Abuse Patient Records regulations: The Federal rules restrict any use of the information to criminally investigate or prosecute any alcohol or drug abuse patient.[facility] the event this information is protected by the Federal Confidentiality of Alcohol and Drug Abuse Patient Records regulations: The Federal rules restrict any use of the information to criminally investigate or prosecute any alcohol or drug abuse patient.[facility] the event this information is protected by the Federal Confidentiality of Alcohol and Drug Abuse Patient Records regulations: The Federal rules restrict any use of the information to criminally investigate or prosecute any alcohol or drug abuse patient.[facility] the event this information is protected by the Federal Confidentiality of Alcohol and Drug Abuse Patient Records regulations: The Federal rules restrict any use of the information to criminally investigate or prosecute any alcohol or drug abuse patient.[facility] the event this information is protected by the Federal Confidentiality of Alcohol and Drug Abuse Patient Records regulations: The Federal rules restrict any use of the information to criminally investigate or prosecute any alcohol or drug abuse patient.[facility] the event this information is protected by the Federal Confidentiality of Alcohol and Drug Abuse Patient Records regulations: The Federal rules restrict any use of the information to criminally investigate or prosecute any alcohol or drug abuse patient.[facility] the event this information is protected by the Federal Confidentiality of Alcohol and Drug Abuse Patient Records regulations: The Federal rules restrict any use of the information to criminally investigate or prosecute any alcohol or drug abuse patient.[facility]In the event this information is protected by the Federal Confidentiality of Alcohol and Drug Abuse Patient Records regulations: The Federal rules restrict any use of the information to criminally investigate or prosecute any alcohol or drug abuse patient.[facility] the event this information is protected by the Federal Confidentiality of Alcohol and Drug Abuse Patient Records regulations: The Federal rules restrict any use of the information to criminally investigate or prosecute any alcohol or drug abuse patient.[facility]In the event this information is protected by the Federal Confidentiality of Alcohol and Drug Abuse Patient Records regulations: The Federal rules restrict any use of the information to criminally investigate or prosecute any alcohol or drug abuse patient.[facility]In the event this information is protected by the Federal Confidentiality of Alcohol and Drug Abuse Patient Records regulations: The Federal rules restrict any use of the information to criminally investigate or prosecute any alcohol or drug abuse patient.[facility]In the event this information is protected by the Federal Confidentiality of Alcohol and Drug Abuse Patient Records regulations: The Federal rules restrict any use of the information to criminally investigate or prosecute any alcohol or drug abuse patient.[facility]In the event this information is protected by the Federal Confidentiality of Alcohol and Drug Abuse Patient Records regulations: The Federal rules restrict any use of the information to criminally investigate or prosecute any alcohol or drug abuse patient.[facility]In the event this information is protected by the Federal Confidentiality of Alcohol and Drug Abuse Patient Records regulations: The Federal rules restrict any use of the information to criminally investigate or prosecute any alcohol or drug abuse patient.[facility]In the event this information is protected by the Federal Confidentiality of Alcohol and Drug Abuse Patient Records regulations: The Federal rules restrict any use of the information to criminally investigate or prosecute any alcohol or drug abuse patient.[facility]In the event this information is protected by the Federal Confidentiality of Alcohol and Drug Abuse Patient Records regulations: The Federal rules restrict any use of the information to criminally investigate or prosecute any alcohol or drug abuse patient.[facility]In the event this information is protected by the Federal Confidentiality of Alcohol and Drug Abuse Patient Records regulations: The Federal rules restrict any use of the information to criminally investigate or prosecute any alcohol or drug abuse patient.[facility]In the event this information is protected by the Federal Confidentiality of Alcohol and Drug Abuse Patient Records regulations: The Federal rules restrict any use of the information to criminally investigate or prosecute any alcohol or drug abuse patient.[facility]In the event this information is protected by the Federal Confidentiality of Alcohol and Drug Abuse Patient Records regulations: The Federal rules restrict any use of the information to criminally investigate or prosecute any alcohol or drug abuse patient.[facility] HospitalIn the event this information is protected by the Federal Confidentiality of Alcohol and Drug Abuse Patient Records regulations: The Federal rules restrict any use of the information to criminally investigate or prosecute any alcohol or drug abuse patient.[facility] the event this information is protected by the Federal Confidentiality of Alcohol and Drug Abuse Patient Records regulations: The Federal rules restrict any use of the information to criminally investigate or prosecute any alcohol or drug abuse patient.[facility]In the event this information is protected by the Federal Confidentiality of Alcohol and Drug Abuse Patient Records regulations: The Federal rules restrict any use of the information to criminally investigate or prosecute any alcohol or drug abuse patient.[facility]In the event this information is protected by the Federal Confidentiality of Alcohol and Drug Abuse Patient Records regulations: The Federal rules restrict any use of the information to criminally investigate or prosecute any alcohol or drug abuse patient.[facility]In the event this information is protected by the Federal Confidentiality of Alcohol and Drug Abuse Patient Records regulations: The Federal rules restrict any use of the information to criminally investigate or prosecute any alcohol or drug abuse patient.[facility]In the event this information is protected by the Federal Confidentiality of Alcohol and Drug Abuse Patient Records regulations: The Federal rules restrict any use of the information to criminally investigate or prosecute any alcohol or drug abuse patient.[facility]In the event this information is protected by the Federal Confidentiality of Alcohol and Drug Abuse Patient Records regulations: The Federal rules restrict any use of the information to criminally investigate or prosecute any alcohol or drug abuse patient.[facility]In the event this information is protected by the Federal Confidentiality of Alcohol and Drug Abuse Patient Records regulations: The Federal rules restrict any use of the information to criminally investigate or prosecute any alcohol or drug abuse patient.[facility]In the event this information is protected by the Federal Confidentiality of Alcohol and Drug Abuse Patient Records regulations: The Federal rules restrict any use of the information to criminally investigate or prosecute any alcohol or drug abuse patient.[facility]In the event this information is protected by the Federal Confidentiality of Alcohol and Drug Abuse Patient Records regulations: The Federal rules restrict any use of the information to criminally investigate or prosecute any alcohol or drug abuse patient.[facility]In the event this information is protected by the Federal Confidentiality of Alcohol and Drug Abuse Patient Records regulations: The Federal rules restrict any use of the information to criminally investigate or prosecute any alcohol or drug abuse patient.[facility]In the event this information is protected by the Federal Confidentiality of Alcohol and Drug Abuse Patient Records regulations: The Federal rules restrict any use of the information to criminally investigate or prosecute any alcohol or drug abuse patient.[facility]In the event this information is protected by the Federal Confidentiality of Alcohol and Drug Abuse Patient Records regulations: The Federal rules restrict any use of the information to criminally investigate or prosecute any alcohol or drug abuse patient.[facility]In the event this information is protected by the Federal Confidentiality of Alcohol and Drug Abuse Patient Records regulations: The Federal rules restrict any use of the information to criminally investigate or prosecute any alcohol or drug abuse patient.[facility]In the event this information is protected by the Federal Confidentiality of Alcohol and Drug Abuse Patient Records regulations: The Federal rules restrict any use of the information to criminally investigate or prosecute any alcohol or drug abuse patient.[facility]In the event this information is protected by the Federal Confidentiality of Alcohol and Drug Abuse Patient Records regulations: The Federal rules restrict any use of the information to criminally investigate or prosecute any alcohol or drug abuse patient.[facility]In the event this information is protected by the Federal Confidentiality of Alcohol and Drug Abuse Patient Records regulations: The Federal rules restrict any use of the information to criminally investigate or prosecute any alcohol or drug abuse patient.[facility]In the event this information is protected by the Federal Confidentiality of Alcohol and Drug Abuse Patient Records regulations: The Federal rules restrict any use of the information to criminally investigate or prosecute any alcohol or drug abuse patient.[facility]In the event this information is protected by the Federal Confidentiality of Alcohol and Drug Abuse Patient Records regulations: The Federal rules restrict any use of the information to criminally investigate or prosecute any alcohol or drug abuse patient.[facility]In the event this information is protected by the Federal Confidentiality of Alcohol and Drug Abuse Patient Records regulations: The Federal rules restrict any use of the information to criminally investigate or prosecute any alcohol or drug abuse patient.[facility]In the event this information is protected by the Federal Confidentiality of Alcohol and Drug Abuse Patient Records regulations: The Federal rules restrict any use of the information to criminally investigate or prosecute any alcohol or drug abuse patient.[facility]In the event this information is protected by the Federal Confidentiality of Alcohol and Drug Abuse Patient Records regulations: The Federal rules restrict any use of the information to criminally investigate or prosecute any alcohol or drug abuse patient.[facility]In the event this information is protected by the Federal Confidentiality of Alcohol and Drug Abuse Patient Records regulations: The Federal rules restrict any use of the information to criminally investigate or prosecute any alcohol or drug abuse patient.[facility]In the event this information is protected by the Federal Confidentiality of Alcohol and Drug Abuse Patient Records regulations: The Federal rules restrict any use of the information to criminally investigate or prosecute any alcohol or drug abuse patient.[facility]In the event this information is protected by the Federal Confidentiality of Alcohol and Drug Abuse Patient Records regulations: The Federal rules restrict any use of the information to criminally investigate or prosecute any alcohol or drug abuse patient.[facility]In the event this information is protected by the Federal Confidentiality of Alcohol and Drug Abuse Patient Records regulations: The Federal rules restrict any use of the information to criminally investigate or prosecute any alcohol or drug abuse patient.[facility]In the event this information is protected by the Federal Confidentiality of Alcohol and Drug Abuse Patient Records regulations: The Federal rules restrict any use of the information to criminally investigate or prosecute any alcohol or drug abuse patient.[facility]In the event this information is protected by the Federal Confidentiality of Alcohol and Drug Abuse Patient Records regulations: The Federal rules restrict any use of the information to criminally investigate or prosecute any alcohol or drug abuse patient.[facility]In the event this information is protected by the Federal Confidentiality of Alcohol and Drug Abuse Patient Records regulations: The Federal rules restrict any use of the information to criminally investigate or prosecute any alcohol or drug abuse patient.[facility]In the event this information is protected by the Federal Confidentiality of Alcohol and Drug Abuse Patient Records regulations: The Federal rules restrict any use of the information to criminally investigate or prosecute any alcohol or drug abuse patient.[facility]In the event this information is protected by the Federal Confidentiality of Alcohol and Drug Abuse Patient Records regulations: The Federal rules restrict any use of the information to criminally investigate or prosecute any alcohol or drug abuse patient.[facility]In the event this information is protected by the Federal Confidentiality of Alcohol and Drug Abuse Patient Records regulations: The Federal rules restrict any use of the information to criminally investigate or prosecute any alcohol or drug abuse patient.[facility]In the event this information is protected by the Federal Confidentiality of Alcohol and Drug Abuse Patient Records regulations: The Federal rules restrict any use of the information to criminally investigate or prosecute any alcohol or drug abuse patient.[facility]In the event this information is protected by the Federal Confidentiality of Alcohol and Drug Abuse Patient Records regulations: The Federal rules restrict any use of the information to criminally investigate or prosecute any alcohol or drug abuse patient.[facility]In the event this information is protected by the Federal Confidentiality of Alcohol and Drug Abuse Patient Records regulations: The Federal rules restrict any use of the information to criminally investigate or prosecute any alcohol or drug abuse patient.[facility]In the event this information is protected by the Federal Confidentiality of Alcohol and Drug Abuse Patient Records regulations: The Federal rules restrict any use of the information to criminally investigate or prosecute any alcohol or drug abuse patient.[facility]In the event this information is protected by the Federal Confidentiality of Alcohol and Drug Abuse Patient Records regulations: The Federal rules restrict any use of the information to criminally investigate or prosecute any alcohol or drug abuse patient.[facility]In the event this information is protected by the Federal Confidentiality of Alcohol and Drug Abuse Patient Records regulations: The Federal rules restrict any use of the information to criminally investigate or prosecute any alcohol or drug abuse patient.[facility]In the event this information is protected by the Federal Confidentiality of Alcohol and Drug Abuse Patient Records regulations: The Federal rules restrict any use of the information to criminally investigate or prosecute any alcohol or drug abuse patient.[facility]In the event this information is protected by the Federal Confidentiality of Alcohol and Drug Abuse Patient Records regulations: The Federal rules restrict any use of the information to criminally investigate or prosecute any alcohol or drug abuse patient.[facility]In the event this information is protected by the Federal Confidentiality of Alcohol and Drug Abuse Patient Records regulations: The Federal rules restrict any use of the information to criminally investigate or prosecute any alcohol or drug abuse patient.[facility]In the event this information is protected by the Federal Confidentiality of Alcohol and Drug Abuse Patient Records regulations: The Federal rules restrict any use of the information to criminally investigate or prosecute any alcohol or drug abuse patient.[facility]In the event this information is protected by the Federal Confidentiality of Alcohol and Drug Abuse Patient Records regulations: The Federal rules restrict any use of the information to criminally investigate or prosecute any alcohol or drug abuse patient.[facility]In the event this information is protected by the Federal Confidentiality of Alcohol and Drug Abuse Patient Records regulations: The Federal rules restrict any use of the information to criminally investigate or prosecute any alcohol or drug abuse patient.[facility]In the event this information is protected by the Federal Confidentiality of Alcohol and Drug Abuse Patient Records regulations: The Federal rules restrict any use of the information to criminally investigate or prosecute any alcohol or drug abuse patient.[facility]In the event this information is protected by the Federal Confidentiality of Alcohol and Drug Abuse Patient Records regulations: The Federal rules restrict any use of the information to criminally investigate or prosecute any alcohol or drug abuse patient.[facility]In the event this information is protected by the Federal Confidentiality of Alcohol and Drug Abuse Patient Records regulations: The Federal rules restrict any use of the information to criminally investigate or prosecute any alcohol or drug abuse patient.[facility]In the event this information is protected by the Federal Confidentiality of Alcohol and Drug Abuse Patient Records regulations: The Federal rules restrict any use of the information to criminally investigate or prosecute any alcohol or drug abuse patient.[facility]In the event this information is protected by the Federal Confidentiality of Alcohol and Drug Abuse Patient Records regulations: The Federal rules restrict any use of the information to criminally investigate or prosecute any alcohol or drug abuse patient.[facility]In the event this information is protected by the Federal Confidentiality of Alcohol and Drug Abuse Patient Records regulations: The Federal rules restrict any use of the information to criminally investigate or prosecute any alcohol or drug abuse patient.[facility]In the event this information is protected by the Federal Confidentiality of Alcohol and Drug Abuse Patient Records regulations: The Federal rules restrict any use of the information to criminally investigate or prosecute any alcohol or drug abuse patient.[facility]In the event this information is protected by the Federal Confidentiality of Alcohol and Drug Abuse Patient Records regulations: The Federal rules restrict any use of the information to criminally investigate or prosecute any alcohol or drug abuse patient.[facility]In the event this information is protected by the Federal Confidentiality of Alcohol and Drug Abuse Patient Records regulations: The Federal rules restrict any use of the information to criminally investigate or prosecute any alcohol or drug abuse patient.[facility]In the event this information is protected by the Federal Confidentiality of Alcohol and Drug Abuse Patient Records regulations: The Federal rules restrict any use of the information to criminally investigate or prosecute any alcohol or drug abuse patient.[facility]In the event this information is protected by the Federal Confidentiality of Alcohol and Drug Abuse Patient Records regulations: The Federal rules restrict any use of the information to criminally investigate or prosecute any alcohol or drug abuse patient.[facility]In the event this information is protected by the Federal Confidentiality of Alcohol and Drug Abuse Patient Records regulations: The Federal rules restrict any use of the information to criminally investigate or prosecute any alcohol or drug abuse patient.[facility]In the event this information is protected by the Federal Confidentiality of Alcohol and Drug Abuse Patient Records regulations: The Federal rules restrict any use of the information to criminally investigate or prosecute any alcohol or drug abuse patient.[facility]In the event this information is protected by the Federal Confidentiality of Alcohol and Drug Abuse Patient Records regulations: The Federal rules restrict any use of the information to criminally investigate or prosecute any alcohol or drug abuse patient.[facility]In the event this information is protected by the Federal Confidentiality of Alcohol and Drug Abuse Patient Records regulations: The Federal rules restrict any use of the information to criminally investigate or prosecute any alcohol or drug abuse patient.[facility]In the event this information is protected by the Federal Confidentiality of Alcohol and Drug Abuse Patient Records regulations: The Federal rules restrict any use of the information to criminally investigate or prosecute any alcohol or drug abuse patient.[facility]In the event this information is protected by the Federal Confidentiality of Alcohol and Drug Abuse Patient Records regulations: The Federal rules restrict any use of the information to criminally investigate or prosecute any alcohol or drug abuse patient.[facility]In the event this information is protected by the Federal Confidentiality of Alcohol and Drug Abuse Patient Records regulations: The Federal rules restrict any use of the information to criminally investigate or prosecute any alcohol or drug abuse patient.[facility]In the event this information is protected by the Federal Confidentiality of Alcohol and Drug Abuse Patient Records regulations: The Federal rules restrict any use of the information to criminally investigate or prosecute any alcohol or drug abuse patient.[facility]In the event this information is protected by the Federal Confidentiality of Alcohol and Drug Abuse Patient Records regulations: The Federal rules restrict any use of the information to criminally investigate or prosecute any alcohol or drug abuse patient.[facility]In the event this information is protected by the Federal Confidentiality of Alcohol and Drug Abuse Patient Records regulations: The Federal rules restrict any use of the information to criminally investigate or prosecute any alcohol or drug abuse patient.[facility]In the event this information is protected by the Federal Confidentiality of Alcohol and Drug Abuse Patient Records regulations: The Federal rules restrict any use of the information to criminally investigate or prosecute any alcohol or drug abuse patient.[facility]In the event this information is protected by the Federal Confidentiality of Alcohol and Drug Abuse Patient Records regulations: The Federal rules restrict any use of the information to criminally investigate or prosecute any alcohol or drug abuse patient.[facility]In the event this information is protected by the Federal Confidentiality of Alcohol and Drug Abuse Patient Records regulations: The Federal rules restrict any use of the information to criminally investigate or prosecute any alcohol or drug abuse patient.[facility]In the event this information is protected by the Federal Confidentiality of Alcohol and Drug Abuse Patient Records regulations: The Federal rules restrict any use of the information to criminally investigate or prosecute any alcohol or drug abuse patient.[facility]In the event this information is protected by the Federal Confidentiality of Alcohol and Drug Abuse Patient Records regulations: The Federal rules restrict any use of the information to criminally investigate or prosecute any alcohol or drug abuse patient.[facility]In the event this information is protected by the Federal Confidentiality of Alcohol and Drug Abuse Patient Records regulations: The Federal rules restrict any use of the information to criminally investigate or prosecute any alcohol or drug abuse patient.[facility]In the event this information is protected by the Federal Confidentiality of Alcohol and Drug Abuse Patient Records regulations: The Federal rules restrict any use of the information to criminally investigate or prosecute any alcohol or drug abuse patient.[facility]In the event this information is protected by the Federal Confidentiality of Alcohol and Drug Abuse Patient Records regulations: The Federal rules restrict any use of the information to criminally investigate or prosecute any alcohol or drug abuse patient.[facility]In the event this information is protected by the Federal Confidentiality of Alcohol and Drug Abuse Patient Records regulations: The Federal rules restrict any use of the information to criminally investigate or prosecute any alcohol or drug abuse patient.[facility]In the event this information is protected by the Federal Confidentiality of Alcohol and Drug Abuse Patient Records regulations: The Federal rules restrict any use of the information to criminally investigate or prosecute any alcohol or drug abuse patient.[facility]In the event this information is protected by the Federal Confidentiality of Alcohol and Drug Abuse Patient Records regulations: The Federal rules restrict any use of the information to criminally investigate or prosecute any alcohol or drug abuse patient.[facility]In the event this information is protected by the Federal Confidentiality of Alcohol and Drug Abuse Patient Records regulations: The Federal rules restrict any use of the information to criminally investigate or prosecute any alcohol or drug abuse patient.[facility]In the event this information is protected by the Federal Confidentiality of Alcohol and Drug Abuse Patient Records regulations: The Federal rules restrict any use of the information to criminally investigate or prosecute any alcohol or drug abuse patient.[facility]In the event this information is protected by the Federal Confidentiality of Alcohol and Drug Abuse Patient Records regulations: The Federal rules restrict any use of the information to criminally investigate or prosecute any alcohol or drug abuse patient.[facility]In the event this information is protected by the Federal Confidentiality of Alcohol and Drug Abuse Patient Records regulations: The Federal rules restrict any use of the information to criminally investigate or prosecute any alcohol or drug abuse patient.[facility]In the event this information is protected by the Federal Confidentiality of Alcohol and Drug Abuse Patient Records regulations: The Federal rules restrict any use of the information to criminally investigate or prosecute any alcohol or drug abuse patient.[facility]In the event this information is protected by the Federal Confidentiality of Alcohol and Drug Abuse Patient Records regulations: The Federal rules restrict any use of the information to criminally investigate or prosecute any alcohol or drug abuse patient.[facility]In the event this information is protected by the Federal Confidentiality of Alcohol and Drug Abuse Patient Records regulations: The Federal rules restrict any use of the information to criminally investigate or prosecute any alcohol or drug abuse patient.[facility]In the event this information is protected by the Federal Confidentiality of Alcohol and Drug Abuse Patient Records regulations: The Federal rules restrict any use of the information to criminally investigate or prosecute any alcohol or drug abuse patient.[facility]In the event this information is protected by the Federal Confidentiality of Alcohol and Drug Abuse Patient Records regulations: The Federal rules restrict any use of the information to criminally investigate or prosecute any alcohol or drug abuse patient.[facility]In the event this information is protected by the Federal Confidentiality of Alcohol and Drug Abuse Patient Records regulations: The Federal rules restrict any use of the information to criminally investigate or prosecute any alcohol or drug abuse patient.[facility] HospitalIn the event this information is protected by the Federal Confidentiality of Alcohol and Drug Abuse Patient Records regulations: The Federal rules restrict any use of the information to criminally investigate or prosecute any alcohol or drug abuse patient.[facility]In the event this information is protected by the Federal Confidentiality of Alcohol and Drug Abuse Patient Records regulations: The Federal rules restrict any use of the information to criminally investigate or prosecute any alcohol or drug abuse patient.[facility] HospitalIn the event this information is protected by the Federal Confidentiality of Alcohol and Drug Abuse Patient Records regulations: The Federal rules restrict any use of the information to criminally investigate or prosecute any alcohol or drug abuse patient.[facility] HospitalIn the event this information is protected by the Federal Confidentiality of Alcohol and Drug Abuse Patient Records regulations: The Federal rules restrict any use of the information to criminally investigate or prosecute any alcohol or drug abuse patient.[facility] HospitalIn the event this information is protected by the Federal Confidentiality of Alcohol and Drug Abuse Patient Records regulations: The Federal rules restrict any use of the information to criminally investigate or prosecute any alcohol or drug abuse patient.[facility] HospitalIn the event this information is protected by the Federal Confidentiality of Alcohol and Drug Abuse Patient Records regulations: The Federal rules restrict any use of the information to criminally investigate or prosecute any alcohol or drug abuse patient.[facility] HospitalIn the event this information is protected by the Federal Confidentiality of Alcohol and Drug Abuse Patient Records regulations: The Federal rules restrict any use of the information to criminally investigate or prosecute any alcohol or drug abuse patient.[facility] HospitalIn the event this information is protected by the Federal Confidentiality of Alcohol and Drug Abuse Patient Records regulations: The Federal rules restrict any use of the information to criminally investigate or prosecute any alcohol or drug abuse patient.[facility] HospitalIn the event this information is protected by the Federal Confidentiality of Alcohol and Drug Abuse Patient Records regulations: The Federal rules restrict any use of the information to criminally investigate or prosecute any alcohol or drug abuse patient.[facility] HospitalIn the event this information is protected by the Federal Confidentiality of Alcohol and Drug Abuse Patient Records regulations: The Federal rules restrict any use of the information to criminally investigate or prosecute any alcohol or drug abuse patient.[facility] HospitalIn the event this information is protected by the Federal Confidentiality of Alcohol and Drug Abuse Patient Records regulations: The Federal rules restrict any use of the information to criminally investigate or prosecute any alcohol or drug abuse patient.[facility] HospitalIn the event this information is protected by the Federal Confidentiality of Alcohol and Drug Abuse Patient Records regulations: The Federal rules restrict any use of the information to criminally investigate or prosecute any alcohol or drug abuse patient.[facility] HospitalIn the event this information is protected by the Federal Confidentiality of Alcohol and Drug Abuse Patient Records regulations: The Federal rules restrict any use of the information to criminally investigate or prosecute any alcohol or drug abuse patient.[facility] HospitalIn the event this information is protected by the Federal Confidentiality of Alcohol and Drug Abuse Patient Records regulations: The Federal rules restrict any use of the information to criminally investigate or prosecute any alcohol or drug abuse patient.[facility] HospitalIn the event this information is protected by the Federal Confidentiality of Alcohol and Drug Abuse Patient Records regulations: The Federal rules restrict any use of the information to criminally investigate or prosecute any alcohol or drug abuse patient.[facility] HospitalIn the event this information is protected by the Federal Confidentiality of Alcohol and Drug Abuse Patient Records regulations: The Federal rules restrict any use of the information to criminally investigate or prosecute any alcohol or drug abuse patient.[facility] HospitalIn the event this information is protected by the Federal Confidentiality of Alcohol and Drug Abuse Patient Records regulations: The Federal rules restrict any use of the information to criminally investigate or prosecute any alcohol or drug abuse patient.[facility] HospitalIn the event this information is protected by the Federal Confidentiality of Alcohol and Drug Abuse Patient Records regulations: The Federal rules restrict any use of the information to criminally investigate or prosecute any alcohol or drug abuse patient.[facility] HospitalIn the event this information is protected by the Federal Confidentiality of Alcohol and Drug Abuse Patient Records regulations: The Federal rules restrict any use of the information to criminally investigate or prosecute any alcohol or drug abuse patient.[facility] HospitalIn the event this information is protected by the Federal Confidentiality of Alcohol and Drug Abuse Patient Records regulations: The Federal rules restrict any use of the information to criminally investigate or prosecute any alcohol or drug abuse patient.[facility] HospitalIn the event this information is protected by the Federal Confidentiality of Alcohol and Drug Abuse Patient Records regulations: The Federal rules restrict any use of the information to criminally investigate or prosecute any alcohol or drug abuse patient.[facility] HospitalIn the event this information is protected by the Federal Confidentiality of Alcohol and Drug Abuse Patient Records regulations: The Federal rules restrict any use of the information to criminally investigate or prosecute any alcohol or drug abuse patient.[facility] HospitalIn the event this information is protected by the Federal Confidentiality of Alcohol and Drug Abuse Patient Records regulations: The Federal rules restrict any use of the information to criminally investigate or prosecute any alcohol or drug abuse patient.[facility] HospitalIn the event this information is protected by the Federal Confidentiality of Alcohol and Drug Abuse Patient Records regulations: The Federal rules restrict any use of the information to criminally investigate or prosecute any alcohol or drug abuse patient.[facility] HospitalIn the event this information is protected by the Federal Confidentiality of Alcohol and Drug Abuse Patient Records regulations: The Federal rules restrict any use of the information to criminally investigate or prosecute any alcohol or drug abuse patient.[facility] HospitalIn the event this information is protected by the Federal Confidentiality of Alcohol and Drug Abuse Patient Records regulations: The Federal rules restrict any use of the information to criminally investigate or prosecute any alcohol or drug abuse patient.[facility] HospitalIn the event this information is protected by the Federal Confidentiality of Alcohol and Drug Abuse Patient Records regulations: The Federal rules restrict any use of the information to criminally investigate or prosecute any alcohol or drug abuse patient.[facility] HospitalIn the event this information is protected by the Federal Confidentiality of Alcohol and Drug Abuse Patient Records regulations: The Federal rules restrict any use of the information to criminally investigate or prosecute any alcohol or drug abuse patient.[facility] HospitalIn the event this information is protected by the Federal Confidentiality of Alcohol and Drug Abuse Patient Records regulations: The Federal rules restrict any use of the information to criminally investigate or prosecute any alcohol or drug abuse patient.[facility] HospitalIn the event this information is protected by the Federal Confidentiality of Alcohol and Drug Abuse Patient Records regulations: The Federal rules restrict any use of the information to criminally investigate or prosecute any alcohol or drug abuse patient.[facility] HospitalIn the event this information is protected by the Federal Confidentiality of Alcohol and Drug Abuse Patient Records regulations: The Federal rules restrict any use of the information to criminally investigate or prosecute any alcohol or drug abuse patient.[facility] HospitalIn the event this information is protected by the Federal Confidentiality of Alcohol and Drug Abuse Patient Records regulations: The Federal rules restrict any use of the information to criminally investigate or prosecute any alcohol or drug abuse patient.[facility] HospitalIn the event this information is protected by the Federal Confidentiality of Alcohol and Drug Abuse Patient Records regulations: The Federal rules restrict any use of the information to criminally investigate or prosecute any alcohol or drug abuse patient.[facility] HospitalIn the event this information is protected by the Federal Confidentiality of Alcohol and Drug Abuse Patient Records regulations: The Federal rules restrict any use of the information to criminally investigate or prosecute any alcohol or drug abuse patient.[facility] HospitalIn the event this information is protected by the Federal Confidentiality of Alcohol and Drug Abuse Patient Records regulations: The Federal rules restrict any use of the information to criminally investigate or prosecute any alcohol or drug abuse patient.[facility] HospitalIn the event this information is protected by the Federal Confidentiality of Alcohol and Drug Abuse Patient Records regulations: The Federal rules restrict any use of the information to criminally investigate or prosecute any alcohol or drug abuse patient.[facility] HospitalIn the event this information is protected by the Federal Confidentiality of Alcohol and Drug Abuse Patient Records regulations: The Federal rules restrict any use of the information to criminally investigate or prosecute any alcohol or drug abuse patient.[facility] HospitalIn the event this information is protected by the Federal Confidentiality of Alcohol and Drug Abuse Patient Records regulations: The Federal rules restrict any use of the information to criminally investigate or prosecute any alcohol or drug abuse patient.[facility] HospitalIn the event this information is protected by the Federal Confidentiality of Alcohol and Drug Abuse Patient Records regulations: The Federal rules restrict any use of the information to criminally investigate or prosecute any alcohol or drug abuse patient.[facility] HospitalIn the event this information is protected by the Federal Confidentiality of Alcohol and Drug Abuse Patient Records regulations: The Federal rules restrict any use of the information to criminally investigate or prosecute any alcohol or drug abuse patient.[facility] HospitalIn the event this information is protected by the Federal Confidentiality of Alcohol and Drug Abuse Patient Records regulations: The Federal rules restrict any use of the information to criminally investigate or prosecute any alcohol or drug abuse patient.[facility] HospitalIn the event this information is protected by the Federal Confidentiality of Alcohol and Drug Abuse Patient Records regulations: The Federal rules restrict any use of the information to criminally investigate or prosecute any alcohol or drug abuse patient.[facility] HospitalIn the event this information is protected by the Federal Confidentiality of Alcohol and Drug Abuse Patient Records regulations: The Federal rules restrict any use of the information to criminally investigate or prosecute any alcohol or drug abuse patient.[facility] HospitalIn the event this information is protected by the Federal Confidentiality of Alcohol and Drug Abuse Patient Records regulations: The Federal rules restrict any use of the information to criminally investigate or prosecute any alcohol or drug abuse patient.[facility] HospitalIn the event this information is protected by the Federal Confidentiality of Alcohol and Drug Abuse Patient Records regulations: The Federal rules restrict any use of the information to criminally investigate or prosecute any alcohol or drug abuse patient.[facility] HospitalIn the event this information is protected by the Federal Confidentiality of Alcohol and Drug Abuse Patient Records regulations: The Federal rules restrict any use of the information to criminally investigate or prosecute any alcohol or drug abuse patient.[facility] HospitalIn the event this information is protected by the Federal Confidentiality of Alcohol and Drug Abuse Patient Records regulations: The Federal rules restrict any use of the information to criminally investigate or prosecute any alcohol or drug abuse patient.[facility] HospitalIn the event this information is protected by the Federal Confidentiality of Alcohol and Drug Abuse Patient Records regulations: The Federal rules restrict any use of the information to criminally investigate or prosecute any alcohol or drug abuse patient.[facility] HospitalIn the event this information is protected by the Federal Confidentiality of Alcohol and Drug Abuse Patient Records regulations: The Federal rules restrict any use of the information to criminally investigate or prosecute any alcohol or drug abuse patient.[facility] HospitalIn the event this information is protected by the Federal Confidentiality of Alcohol and Drug Abuse Patient Records regulations: The Federal rules restrict any use of the information to criminally investigate or prosecute any alcohol or drug abuse patient.[facility] HospitalIn the event this information is protected by the Federal Confidentiality of Alcohol and Drug Abuse Patient Records regulations: The Federal rules restrict any use of the information to criminally investigate or prosecute any alcohol or drug abuse patient.[facility] HospitalIn the event this information is protected by the Federal Confidentiality of Alcohol and Drug Abuse Patient Records regulations: The Federal rules restrict any use of the information to criminally investigate or prosecute any alcohol or drug abuse patient.[facility] HospitalIn the event this information is protected by the Federal Confidentiality of Alcohol and Drug Abuse Patient Records regulations: The Federal rules restrict any use of the information to criminally investigate or prosecute any alcohol or drug abuse patient.[facility] HospitalIn the event this information is protected by the Federal Confidentiality of Alcohol and Drug Abuse Patient Records regulations: The Federal rules restrict any use of the information to criminally investigate or prosecute any alcohol or drug abuse patient.[facility] HospitalIn the event this information is protected by the Federal Confidentiality of Alcohol and Drug Abuse Patient Records regulations: The Federal rules restrict any use of the information to criminally investigate or prosecute any alcohol or drug abuse patient.[facility] HospitalIn the event this information is protected by the Federal Confidentiality of Alcohol and Drug Abuse Patient Records regulations: The Federal rules restrict any use of the information to criminally investigate or prosecute any alcohol or drug abuse patient.[facility] HospitalIn the event this information is protected by the Federal Confidentiality of Alcohol and Drug Abuse Patient Records regulations: The Federal rules restrict any use of the information to criminally investigate or prosecute any alcohol or drug abuse patient.[facility] HospitalIn the event this information is protected by the Federal Confidentiality of Alcohol and Drug Abuse Patient Records regulations: The Federal rules restrict any use of the information to criminally investigate or prosecute any alcohol or drug abuse patient.[facility] HospitalIn the event this information is protected by the Federal Confidentiality of Alcohol and Drug Abuse Patient Records regulations: The Federal rules restrict any use of the information to criminally investigate or prosecute any alcohol or drug abuse patient.[facility] HospitalIn the event this information is protected by the Federal Confidentiality of Alcohol and Drug Abuse Patient Records regulations: The Federal rules restrict any use of the information to criminally investigate or prosecute any alcohol or drug abuse patient.[facility] HospitalIn the event this information is protected by the Federal Confidentiality of Alcohol and Drug Abuse Patient Records regulations: The Federal rules restrict any use of the information to criminally investigate or prosecute any alcohol or drug abuse patient.[facility] HospitalIn the event this information is protected by the Federal Confidentiality of Alcohol and Drug Abuse Patient Records regulations: The Federal rules restrict any use of the information to criminally investigate or prosecute any alcohol or drug abuse patient.[facility] HospitalIn the event this information is protected by the Federal Confidentiality of Alcohol and Drug Abuse Patient Records regulations: The Federal rules restrict any use of the information to criminally investigate or prosecute any alcohol or drug abuse patient.[facility] HospitalIn the event this information is protected by the Federal Confidentiality of Alcohol and Drug Abuse Patient Records regulations: The Federal rules restrict any use of the information to criminally investigate or prosecute any alcohol or drug abuse patient.[facility] HospitalIn the event this information is protected by the Federal Confidentiality of Alcohol and Drug Abuse Patient Records regulations: The Federal rules restrict any use of the information to criminally investigate or prosecute any alcohol or drug abuse patient.[facility] HospitalIn the event this information is protected by the Federal Confidentiality of Alcohol and Drug Abuse Patient Records regulations: The Federal rules restrict any use of the information to criminally investigate or prosecute any alcohol or drug abuse patient.[facility] HospitalIn the event this information is protected by the Federal Confidentiality of Alcohol and Drug Abuse Patient Records regulations: The Federal rules restrict any use of the information to criminally investigate or prosecute any alcohol or drug abuse patient.[facility] HospitalIn the event this information is protected by the Federal Confidentiality of Alcohol and Drug Abuse Patient Records regulations: The Federal rules restrict any use of the information to criminally investigate or prosecute any alcohol or drug abuse patient.[facility] HospitalIn the event this information is protected by the Federal Confidentiality of Alcohol and Drug Abuse Patient Records regulations: The Federal rules restrict any use of the information to criminally investigate or prosecute any alcohol or drug abuse patient.[facility] HospitalIn the event this information is protected by the Federal Confidentiality of Alcohol and Drug Abuse Patient Records regulations: The Federal rules restrict any use of the information to criminally investigate or prosecute any alcohol or drug abuse patient.[facility] HospitalIn the event this information is protected by the Federal Confidentiality of Alcohol and Drug Abuse Patient Records regulations: The Federal rules restrict any use of the information to criminally investigate or prosecute any alcohol or drug abuse patient.[facility] HospitalIn the event this information is protected by the Federal Confidentiality of Alcohol and Drug Abuse Patient Records regulations: The Federal rules restrict any use of the information to criminally investigate or prosecute any alcohol or drug abuse patient.[facility] HospitalIn the event this information is protected by the Federal Confidentiality of Alcohol and Drug Abuse Patient Records regulations: The Federal rules restrict any use of the information to criminally investigate or prosecute any alcohol or drug abuse patient.[facility] HospitalIn the event this information is protected by the Federal Confidentiality of Alcohol and Drug Abuse Patient Records regulations: The Federal rules restrict any use of the information to criminally investigate or prosecute any alcohol or drug abuse patient.[facility] Reason for Visit (unrecogniz ed section and content) Reason Comments Physical Therapy Specialty Diagnoses / Procedures Referred By Contac t Referred To Contact [facility] Diagnoses Chronic bilateral thoracic back pain Lumbar pain Procedures CONSULT TO PHYSICAL THERAPY PHYSICAL THERAPY EVALUATION HIGH COMPLEX 45 MINS Rosaura Suárez APRN.YARD CRANE OPERATOR [address] [place] [address] [facility] [address] [place] [address] Referral ID Status Reason Start Date Expiration Date Visits Requested Visits Authorized [id number] Authorized Auto-Generat ed Referral 07/18/2022 07/17/2023 99 [...] IVCON CTA ABDL AORTA&BI ILIOFEM W/CONTRAST&POSTP Angélica Doan, DO [address] [place] [address] Ct Imaging Referral ID Status Reason Start Date Expiration Date V isits Requested Visits Authorized [id number] Closed Auto-Generate d Referral 11/25/2021 01/09/2022 1 1 Reason Comments Results Reason Onset Date Comments Community Monitoring Outreach 12/22/2021 CO PD/ CKD Telephonic CDM Outreach Reason Comments Mass Renal Specialty Diagnoses / Procedures Referred By Contac t Referred To Contact Urology Diagnoses Renal mass Procedures CONSULT TO UROLOGY OFFICE/OUTPATIENT NEW HIGH MDM 60-74 MINUTES Angélica Doan, DO [address] [place] [address] Referral ID Status Reason Start Date Expiration Date V isits Requested Visits Authorized [id number] Closed PCP Requested Referral 12/09/2021 12/09/2022 1 [...] SPMTRY W/VC EXPIRAT[facility] [place] W/WO MXML VOL TONOTAna Early, PARuslanC [address] [place] [address] [facility] [address] [place] [id number] Referral ID Status Reason Start Date Expiration Date V isits Requested Visits Authorized [id number] Closed Auto-Generate d Referral 02/04/2022 03/06/2023 1 1 Specialty Diagnoses / Procedures Referred By Contac t Referred To Contact CT IMAGING Diagnoses Other specified disorders of kidney and ureter 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 Procedures CT KIDNEY WO/W IVCON CT ABDOMEN W & W/O CONTRAST Spencer Boone MD [address] [place] [address] Ct Imaging Referral ID Status Reason Start Date Expiration Date V isits Requested Visits Authorized [id number] Closed Auto-Generate d Referral 01/04/2022 02/03/2023 1 [...] Outreach 04/19/2023 Reason Comments 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 Reason Onset Date Comments Community Monitoring Outreach 05/17/2023 Specialty Diagnoses / Procedures Referred By Contac t Referred To Contact CT IMAGING Diagnoses Interstitial pulmonary disease (HCC) Abnormal chest x-ray Procedures CT CHEST WO IVCON DIAGNOSTIC COMPUTED TOMOGRAPHY THORAX W/O Alina Bran MD [address] [place] [address] [place] [address] Referral ID Status Reason Start Date Expiration Date V isits Requested Visits Authorized [id number] Closed Auto-Generate d Referral 04/27/2022 06/20/2022 1 1 Specialty Diagnoses / Procedures Referred By Contac t Referred To Contact CT IMAGING Diagnoses Opacity noted on imaging study Former cigarette smoker Atelectasis Procedures CT CHEST WO IVCON DIAGNOSTIC COMPUTED TOMOGRAPHY THORAX W/O Alina Bran MD [address] [place] [address] [place] [address] Referral ID Status Reason Start Date Expiration Date V isits Requested Visits Authorized [id number] Closed Auto-Generate d Referral 07/29/2022 09/12/2022 1 1 Reason Comments Recheck blood pressure Reason Onset Date Comments Community Monitoring Outreach 06/28/2023 Reason Comments Hospital F/U [facility] admitted 023 for COPD flare up Low Back Pain Reason Comments Shortness of Breath Reason Comments Hospital F/U D/C [facility] 08/20 covid + Reason Comments Results Patient Update Reason Onset Date Comments Community Monitoring Outreach 10/06/2023 Reason Comments Medication Problem Brovana nebulizer Reason Comments Hospital F/U hypoxia, back pain Reason Comments OT plan of care Reason Comments [facility] POC w/questions Reason Comments Results Oximetry Reason Comments Patient Update Reason Comments Opened In Error Reason Comments Lab Orders Patient Update Medication request Reason Onset Date Comments Refill Request 11/07/2023 Reason Comments Home Health Call Lab Orders Reason Onset Date Comments Community Monitoring Outreach 11/10/2023 Reason Comments Hospital F/U [facility] 11/01/2023 and t reated for diverticulitis Reason Comments [facility] update on Lymphedema Therapy Reason Comments Faxed to [facility] Reason Comments Results labs Reason Comments 2 week follow up blood pressure Reason Onset Date Comments Refill Request 12/05/2023 Reason Comments home health issue Reason Comments Established Patient COPD Specialty Diagnoses / Procedures Referred By Contac t Referred To Contact [facility] Diagnoses Stage 3 severe COPD by GOLD classification (HCC) Procedures SPIROMETRY BASELINE ONLY SPMTRY W/VC EXPIRATORY [place] W/WO MXML VOL Alina Whitfield MD [address] [place] [address] Respiratory [facility] [address] [place] [id number] Referral ID Status Reason Start Date Expiration Date V isits Requested Visits Authorized [id number] Closed Auto-Generate d Referral 10/13/2023 11/11/2024 1 1 Reason Comments Recheck Reason Onset Date Comments Community Monitoring Outreach 12/23/2023 Reason Comments Medication Problem Reason Onset Date Comments Refill Request 01/10/2024 Reason Onset Date Comments Home Care 01/20/2024 [facility] Home Health 10/17/2023-12/15/2023 Reason Onset Date Comments Community Monitoring Outreach 02/02/2024 Reason Comments Recheck Flank Pain left constant for ab out 2 weeks Reason Comments Refill Request Reason Onset Date Comments Community Monitoring Outreach 02/29/2024 Reason Onset Date Comments Community Monitoring Outreach 03/05/2024 Reason Onset Date Comments CDM 03/26/2024 Chronic Disease Management Routine Call Reason Onset Date Comments [facility] 04/08/2024 Chronic Disease Management Routine Call Reason Comments Pain, Back Reason Comments [facility] Reason Comments update from home health Reason Onset Date Comments Refill Request 04/23/2024 Specialty Diagnoses / Procedures Referred By Contac t Referred To Contact [facility] Diagnoses Chronic hypoxemic respiratory failure (HCC) Procedures OXIMETRY WITH AMBULATION NONINVASIVE EAR/PULSE OXIMETRY MULTIPLE Aan Quinones, PA-C [address] [facility] [place] [address] Respiratory [facility] [address] [place] [address] Referral ID Status Reason Start Date Expiration Date V isits Requested Visits Authorized [id number] Closed Auto-Generate d Referral 12/20/2023 01/18/2025 1 1 Reason Comments follow up 4 mo Reason Onset Date Comments [facility] 05/09/2024 Chronic Disease Management Routine Call Reason Onset Date Comments [facility] 05/22/2024 Chronic Disease Management Routine Call Reason Onset Date Comments Refill Request 06/04/2024 Reason Comments Hallucinations Reason Comments Critical Results Reason Comments Appointment Reason Comments Hospital F/U Request for possible change of provider Reason Onset Date Comments Community Monitoring Outreach 06/22/2024 Reason Onset Date Comments [facility] 07/05/2024 Chronic Disease Management Routine Call Reason Comments Hospital F/U Reason Comments F/U 3 Month Reason Onset Date Comments Refill Request 10/09/2024 Reason Onset Date Comments Refill Request 11/19/2024 Reason Comments Abdominal Pain Reason Comments Established Patient 6 month follow up [place] COPD Reason Comments Follow Up Follow Up EMG results RUE Reason Comments F/U 3 Month Care Teams (unrecognized sec tion and content) Level Vial Grinder Relationship Specialty Start Date End Date Mady Dunn MD [address] [place] [address] PCP - General Internal Medicine 12/21/16 Kolton Jaffe, crime prevention police officerSpool Sorter Internal Medicine 11/06/20 Angélica Doan, DO [address] [place] [address] Peripheral Vascular 01/05/[address] [place] [address] Cardiology 01/05/21 Erin Robledo MD [address] [place] [address] [place] [address] Vascular Surgery 01/26/21 Level Vial Grinder Relationship Specialty Start Date End Date Mady Dunn MD [address] [facility] [place] [place] [address] PCP - General Internal Medicine 12/21/16 Kolton Jaffe, crime prevention police officerSpool Sorter Internal Medicine 11/06/20 Angélica Doan, DO [address] [facility] [place] [address] Peripheral Vascular 01/05/[address] Smith [address] [place] [address] Cardiology 01/05/21 Erin Robledo MD [address] [place] [address] Vascular Surgery 01/26/21 Level Vial Grinder Relationship Specialty Start Date End Date Mady Dunn MD [address] [facility] [place] [place] [address] PCP - General Internal Medicine 12/21/16 Kolton Jaffe, crime prevention police officerSpool Sorter Internal Medicine 11/06/20 Angélica Doan, DO [address] [facility] [address] Peripheral Vascular 01/05/[address] Smith [address] [place] [address] Cardiology 01/05/21 Erin Robledo MD [address] [place] [address] [place] [address] Vascular Surgery 01/26/21 Level Vial Grinder Relationship Specialty Start Date End Date Mady Dunn MD [address] [facility] [place] [place] [address] PCP - General Internal Medicine 12/21/16 Kolton Jaffe, crime prevention police officerSpool Sorter Internal Medicine 11/06/20 Angélica Doan, DO [address] [facility] [address] Peripheral Vascular 01/05/21 Rolly Smith [address] [place] [address] Cardiology 01/05/21 Erin Robledo MD [address] [place] [address] [place] [address] Vascular Surgery 01/26/21 Level Vial Grinder Relationship Specialty Start Date End Date Mady Dunn MD [address] [facility] [place] [place] [address] PCP - General Internal Medicine 12/21/16 Kolton Jaffe, crime prevention police officerSpool Sorter Internal Medicine 11/06/20 Angélica Doan, DO [address] [facility] [place] [address] Peripheral Vascular 01/05/21 Rolly Smith [address] [place] [address] Cardiology 01/05/21 Erin Robledo MD [address] [place] [address] [place] [address] Vascular Surgery 01/26/21 Level Vial Grinder Relationship Specialty Start Date End Date Mady Dunn MD [address] [facility] [place] [place] [address] PCP - General Internal Medicine 12/21/16 Kolton Jaffe, crime prevention police officerSpool Sorter Internal Medicine 11/06/20 Angélica Doan, DO [address] [place] [address] Peripheral Vascular 01/05/21 Joséluis Rolly F [address] [place] [address] Cardiology 01/05/21 Erin Robledo MD [address] [place] [address] [place] [address] Vascular Surgery 01/26/21 Level Vial Grinder Relationship Specialty Start Date End Date Mady Dunn MD [address] [place] [address] PCP - General Internal Medicine 12/21/16 Kolton Jaffe crime prevention police officerSpool Sorter Internal Medicine 11/06/20 Angélica Doan, DO [address] [place] [address] Peripheral Vascular 01/05/21 Rolly Smith F [address] [place] [address] Cardiology 01/05/21 Erin Robledo MD [address] [place] [address] [place] [address] Vascular Surgery 01/26/21 Level Vial Grinder Relationship Specialty Start Date End Date Mady Dunn MD [address] [facility] [place] [address] PCP - General Internal Medicine 12/21/16 Kolton Jaffe, crime prevention police officerSpool Sorter Internal Medicine 11/06/20 Angélica Doan, DO [address] [facility] [place] [place] [address] Peripheral Vascular 01/05/[address] Smith [address] [place] [address] Cardiology 01/05/21 Erin Robledo MD [address] [place] [address] [place] [address] Vascular Surgery 01/26/21 Level Vial Grinder Relationship Specialty Start Date End Date Mady Dunn MD [address] [facility] [place] [place] [address] PCP - General Internal Medicine 12/21/16 Kolton Jaffe, crime prevention police officerSpool Sorter Internal Medicine 11/06/20 Angélica Doan, DO [address] [facility] [place] [address] Peripheral Vascular 01/05/[address] Smith [address] [place] [address] Cardiology 01/05/21 Erin Robledo MD [address] [place] [address] [place] [address] Vascular Surgery 01/26/21 Level Vial Grinder Relationship Specialty Start Date End Date Mady Dunn MD [address] [facility] [place] [place] [address] PCP - General Internal Medicine 12/21/16 Kolton Jaffe, crime prevention police officerSpool Sorter Internal Medicine 11/06/20 Angélica Doan, DO [address] [facility] [place] [address] Peripheral Vascular 01/05/[address] Smith [address] [place] [address] Cardiology 01/05/21 Erin Robledo MD [address] [place] [address] [place] [address] Vascular Surgery 01/26/21 Level Vial Grinder Relationship Specialty Start Date End Date Mady Dunn MD [address] [facility] [place] [place] [address] PCP - General Internal Medicine 12/21/16 Kolton Jaffe, crime prevention police officerSpool Sorter Internal Medicine 11/06/20 Angélica Doan, DO [address] [facility] [place] [address] Peripheral Vascular 01/05/21 Rolly Smith [address] [place] [address] Cardiology 01/05/21 Erin Robledo MD [address] [place] [address] [place] [address] Vascular Surgery 01/26/21 Level Vial Grinder Relationship Specialty Start Date End Date Mady Dunn MD [address] [facility] [place] [place] [address] PCP - General Internal Medicine 12/21/16 Kolton Jaffe, crime prevention police officerSpool Sorter Internal Medicine 11/06/20 Angélica Doan, DO [address] [facility] [address] Peripheral Vascular 01/05/21 Rolly Smith [address] [place] [address] Cardiology 01/05/21 Erin Robledo MD [address] [place] [address] [place] [address] Vascular Surgery 01/26/21 Level Vial Grinder Relationship Specialty Start Date End Date Mady Dunn MD [address] [facility] [place] [place] [address] PCP - General Internal Medicine 12/21/16 Kolton Jaffe, crime prevention police officerSpool Sorter Internal Medicine 11/06/20 Angélica Doan, DO [address] [facility] [address] Peripheral Vascular 01/05/21 Rolly Smith [address] [place] [address] Cardiology 01/05/21 Erin Robledo MD [address] [place] [address] [place] [address] Vascular Surgery 01/26/21 Level Vial Grinder Relationship Specialty Start Date End Date Mady Dunn MD [address] [facility] [place] [address] PCP - General Internal Medicine 12/21/16 Kolton Jaffe RN Spool Sorter Internal Medicine 11/06/20 Angélica Doan, DO [address] [facility] [address] Peripheral Vascular 01/05/21 Rolly Smith [address] [place] [address] Cardiology 01/05/21 Erin Robledo MD [address] [place] [address] [place] [address] Vascular Surgery 01/26/21 Level Vial Grinder Relationship Specialty Start Date End Date Mady Dunn MD [address] [facility] [place] [place] [address] PCP - General Internal Medicine 12/21/16 Kolton Jaffe RN Spool Sorter Internal Medicine 11/06/20 Angélica Doan, DO [address] [place] [address] Peripheral Vascular 01/05/[address] Smith [address] [place] [address] Cardiology 01/05/21 Erin Robledo MD [address] [place] [address] [place] [address] Vascular Surgery 01/26/21 Level Vial Grinder Relationship Specialty Start Date End Date Mady Dunn MD [address] [facility] [place] [address] PCP - General Internal Medicine 12/21/16 Kolton Jaffe, crime prevention police officerSpool Sorter Internal Medicine 11/06/20 Angélica Doan, DO [address] [facility] [address] Peripheral Vascular 01/05/[address]olly Smith [address] [place] [address] Cardiology 01/05/21 Erin Robledo MD [address] [place] [address] [place] [address] Vascular Surgery 01/26/21 Level Vial Grinder Relationship Specialty Start Date End Date Mady Dunn MD [address] [facility] [place] [address] PCP - General Internal Medicine 12/21/16 Kolton Jaffe, crime prevention police officerSpool Sorter Internal Medicine 11/06/20 Angélica Doan, DO [address] [facility] [address] Peripheral Vascular 01/05/21 [address] Smith [address] [place] [address] Cardiology 01/05/21 Erin Robledo MD [address] [place] [address] [place] [address] Vascular Surgery 01/26/21 Level Vial Grinder Relationship Specialty Start Date End Date Mady Dunn MD [address] [facility] [place] [place] [address] PCP - General Internal Medicine 12/21/16 Kolton Jaffe, crime prevention police officerSpool Sorter Internal Medicine 11/06/20 Angélica Doan, DO [address] [facility] [address] Peripheral Vascular 01/05/21 Rolly Smith [address] [place] [address] Cardiology 01/05/21 Erin Robledo MD [address] [place] [address] [place] [address] Vascular Surgery 01/26/21 Level Vial Grinder Relationship Specialty Start Date End Date Mady Dunn MD [address] [facility] [place] [address] PCP - General Internal Medicine 12/21/16 Kolton Jafef, crime prevention police officerSpool Sorter Internal Medicine 11/06/20 Angélica Doan, DO [address] [facility] [place] [address] Peripheral Vascular 01/05/21 Rolly Smith [address] [place] [address] Cardiology 01/05/21 Erin Robledo MD [address] [place] [address] [place] [address] Vascular Surgery 01/26/21 Level Vial Grinder Relationship Specialty Start Date End Date Mady Dunn MD [address] [facility] [place] [place] [address] PCP - General Internal Medicine 12/21/16 Alison Hi, crime prevention police officerSpool Sorter Internal Medicine 11/06/20 Angélica Doan, DO [address] [facility] [place] [address] Peripheral Vascular 01/05/[address]olly Smith [address] [place] [address] Cardiology 01/05/21 Erin Robledo MD [address] [place] [address] [place] [address] Vascular Surgery 01/26/21 Level Vial Grinder Relationship Specialty Start Date End Date Mady Dunn MD [address] [facility] [place] [place] [address] PCP - General Internal Medicine 12/21/16 Alison Hi RN Spool Sorter Internal Medicine 11/06/20 Angélica Doan, DO [address] [facility] [address] Peripheral Vascular 01/05/[address] Rolly Smith [address] [place] [address] Cardiology 01/05/21 Erin Robledo MD [address] [place] [address] [place] [address] Vascular Surgery 01/26/21 Level Vial Grinder Relationship Specialty Start Date End Date Mady Dunn MD [address] [facility] [place] [place] [address] PCP - General Internal Medicine 12/21/16 Alison Hi RN Spool Sorter Internal Medicine 11/06/20 Angélica Doan, DO [address] [place] [address] Peripheral Vascular 01/05/21 [address]olly Smith [address] [place] [address] Cardiology 01/05/21 Eirn Robledo MD [address] [place] [address] [place] [address] Vascular Surgery 01/26/21 Level Vial Grinder Relationship Specialty Start Date End Date Mady Dunn MD [address] [facility] [place] [address] PCP - General Internal Medicine 12/21/16 Alison Hi, crime prevention police officerSpool Sorter Internal Medicine 11/06/20 Angélica Doan, DO [address] [facility] [address] Peripheral Vascular 01/05/[address] [place] [address] Cardiology 01/05/21 Erin Robledo MD [address] [place] [address] [place] [address] Vascular Surgery 01/26/21 Level Vial Grinder Relationship Specialty Start Date End Date Mady Dunn MD [address] [facility] [place] [address] PCP - General Internal Medicine 12/21/16 Alison Hi, crime prevention police officerSpool Sorter Internal Medicine 11/06/20 Angélica Doan, DO [address] [facility] [address] Peripheral Vascular 01/05/[address] [place] [address] Cardiology 01/05/21 Erin Robledo MD [address] [place] [address] [place] [address] Vascular Surgery 01/26/21 Level Vial Grinder Relationship Specialty Start Date End Date Mady Dunn MD [address] [facility] [place] [address] PCP - General Internal Medicine 12/21/16 Alison Hi, crime prevention police officerSpool Sorter Internal Medicine 11/06/20 Angélica Doan, DO [address] [facility] [address] Peripheral Vascular 01/05/[address] Smith [address] [place] [address] Cardiology 01/05/21 Erin Robledo MD [address] [place] [address] [place] [address] Vascular Surgery 01/26/21 Level Vial Grinder Relationship Specialty Start Date End Date Mady Dunn MD [address] [facility] [place] [address] PCP - General Internal Medicine 12/21/16 Alison Hi, crime prevention police officerSpool Sorter Internal Medicine 11/06/20 Angélica Doan, DO [address] [facility] [address] Peripheral Vascular 01/05/[address] Smith [address] [place] [address] Cardiology 01/05/21 Erin Robledo MD [address] [place] [address] [place] [address] Vascular Surgery 01/26/21 Level Vial Grinder Relationship Specialty Start Date End Date Mady Dunn MD [address] [facility] [place] [address] PCP - General Internal Medicine 12/21/16 Alison Hi, crime prevention police officerSpool Sorter Internal Medicine 11/06/20 Angélica Doan, DO [address] [facility] [address] Peripheral Vascular 01/05/[address]olly Smith [address] [place] [address] Cardiology 01/05/21 Erin Robledo MD [address] [place] [address] [place] [address] Vascular Surgery 01/26/21 Level Vial Grinder Relationship Specialty Start Date End Date Mady Dunn MD [address] [facility] [place] [address] PCP - General Internal Medicine 12/21/16 Alison Hi RN Spool Sorter Internal Medicine 11/06/20 Angélica Doan, DO [address] [facility] [address] Peripheral Vascular 01/05/[address] [place] [address] Cardiology 01/05/21 Erin Robledo MD [address] [place] [address] [place] [address] Vascular Surgery 01/26/21 Level Vial Grinder Relationship Specialty Start Date End Date Mady Dunn MD [address] [facility] [place] [place] [address] PCP - General Internal Medicine 12/21/16 Alison Hi crime prevention police officerSpool Sorter Internal Medicine 11/06/20 Angélica Doan, DO [address] [place] [address] Peripheral Vascular 01/05/[address] [place] [address] Cardiology 01/05/21 Erin Robledo MD [address] [place] [address] [place] [address] Vascular Surgery 01/26/21 Level Vial Grinder Relationship Specialty Start Date End Date Mady Dunn MD [address] [facility] [place] [place] [address] PCP - General Internal Medicine 12/21/16 Alison Hi, crime prevention police officerSpool Sorter Internal Medicine 11/06/20 Angélica Doan, DO [address] [place] [address] Peripheral Vascular 01/05/[address] [place] [address] Cardiology 01/05/21 Erin Robledo MD [address] [place] [address] [place] [address] Vascular Surgery 01/26/21 Level Vial Grinder Relationship Specialty Start Date End Date Mady Dunn MD [address] [facility] [place] [address] PCP - General Internal Medicine 12/21/16 Alison Hi, crime prevention police officerSpool Sorter Internal Medicine 11/06/20 Angélica Doan, DO [address] [place] [address] Peripheral Vascular 01/05/[address] [place] [address] Cardiology 01/05/21 Erin Robledo MD [address] [place] [address] [place] [address] Vascular Surgery 01/26/21 Level Vial Grinder Relationship Specialty Start Date End Date Mady Dunn MD [address] [facility] [place] [place] [address] PCP - General Internal Medicine 12/21/16 Alison Hi, crime prevention police officerSpool Sorter Internal Medicine 11/06/20 Angélica Doan, DO [address] [facility] [address] Peripheral Vascular 01/05/[address] [place] [address] Cardiology 01/05/21 Erin Robledo MD [address] [place] [address] [place] [address] Vascular Surgery 01/26/21 Level Vial Grinder Relationship Specialty Start Date End Date Mady Dunn MD [address] [facility] [place] [place] [address] PCP - General Internal Medicine 12/21/16 Alison Hi, crime prevention police officerSpool Sorter Internal Medicine 11/06/20 Angélica Doan, DO [address] [facility] [address] Peripheral Vascular 01/05/[address] [place] [address] Cardiology 01/05/21 Erin Robledo MD [address] [place] [address] [place] [address] Vascular Surgery 01/26/21 Level Vial Grinder Relationship Specialty Start Date End Date Mady Dunn MD [address] [facility] [place] [place] [address] PCP - General Internal Medicine 12/21/16 Alison Hi, crime prevention police officerSpool Sorter Internal Medicine 11/06/20 Angélica Doan, DO [address] [facility] [address] Peripheral Vascular 01/05/[address] [place] [address] Cardiology 01/05/21 Erin Robledo MD [address] [place] [address] [place] [address] Vascular Surgery 01/26/21 Level Vial Grinder Relationship Specialty Start Date End Date Mady Dunn MD [address] [facility] [place] [place] [address] PCP - General Internal Medicine 12/21/16 Alison Hi RN Spool Sorter Internal Medicine 11/06/20 Angélica Doan, DO [address] [facility] [address] Peripheral Vascular 01/05/[address] [place] [address] Cardiology 01/05/21 Erin Robledo MD [address] [place] [address] [place] [address] Vascular Surgery 01/26/21 Level Vial Grinder Relationship Specialty Start Date End Date Mady Dunn MD [address] [facility] [place] [address] PCP - General Internal Medicine 12/21/16 Alison Hi, crime prevention police officerSpool Sorter Internal Medicine 11/06/20 Angélica Doan, DO [address] [place] [address] Peripheral Vascular 01/05/[address] [place] [address] Cardiology 01/05/21 Erin Robledo MD [address] [place] [address] [place] [address] Vascular Surgery 01/26/21 Level Vial Grinder Relationship Specialty Start Date End Date Mady Dunn MD [address] [facility] [place] [place] [address] PCP - General Internal Medicine 12/21/16 Alison Hi, crime prevention police officerSpool Sorter Internal Medicine 11/06/20 Angélica Doan, DO [address] [place] [address] Peripheral Vascular 01/05/[address] [place] [address] Cardiology 01/05/21 Erin Robledo MD [address] [place] [address] [place] [address] Vascular Surgery 01/26/21 Level Vial Grinder Relationship Specialty Start Date End Date Mady Dunn MD [address] [facility] [place] [address] PCP - General Internal Medicine 12/21/16 Alison Hi, crime prevention police officerSpool Sorter Internal Medicine 11/06/20 Angélica Doan, DO [address] [place] [address] Peripheral Vascular 01/05/21 Rolly Smith [address] [place] [address] Cardiology 01/05/21 Erin Robledo MD [address] [place] [address] Vascular Surgery 01/26/21 Team Status: Active Member Role Status Dates Dr. Mady Dunn MD Family Provider Active Dr. Mady Dunn MD Primary Care Provider Active Team Status: Inactive Member Role Status Dates Dr. Mady Dunn MD Primary Care Provider, Referr ing Provider Active Jhonny Schwartz AUDIO SPECIALIST, AUDIO SPECIALIST-C Attending Provider Active Team Status: Inactive Member Role Status Dates Dr. Mady Dunn MD Primary Care Provider Active Dr. Herrera Thompson DO Attending Provider, Emergency P rhea Active Team Status: Inactive Member Role Status Dates Dr. Mady Dunn MD Primary Care Provider Active Dr. Avel Zuleta MD Emergency Provider Active Level Vial Grinder Relationship Specialty Start Date End Date Mady Dunn MD [address] [place] [address] PCP - General Internal Medicine 12/21/16 Alison Hi, crime prevention police officerSpool Sorter Internal Medicine 11/06/20 Angélica Doan, DO [address] [place] [address] Peripheral Vascular 01/05/21 Rolly Smith [address] [place] [address] Cardiology 01/05/21 Erin Robledo MD [address] [place] [address] Vascular Surgery 01/26/21 Level Vial Grinder Relationship Specialty Start Date End Date Mady Dunn MD [address] [place] [address] PCP - General Internal Medicine 12/21/16 Alison Hi, crime prevention police officerSpool Sorter Internal Medicine 11/06/20 Angélica Doan DO [address] [facility] [place] [address] Peripheral Vascular 01/05/21 Rolly Smith [address] [place] [address] Cardiology 01/05/21 Erin Robledo MD [address] [place], [place] [id number] Vascular Surgery 01/26/21 Team Status: Inactive Member Role Status Dates Dr. Mady Dunn MD Primary Care Provider Active Dr. Avel Zuleta MD Attending Provider, Emergency Provider Active Team Status: Inactive Member Role Status Dates Dr. Mady Dunn MD Primary Care Provider Active Dr. Cornel Clayton MD Attending Provider, Referring Provider Active Team Status: Inactive Member Role Status Dates Dr. Mady Dunn MD Primary Care Provider Active Dr. Veto Webb DC Attending Provider, Referring P rhea Active Level Vial Grinder Relationship Specialty Start Date End Date Mady Dunn MD [address] [facility] [place] [address] PCP - General Internal Medicine 12/21/16 Alison Hi RN Spool Sorter Internal Medicine 11/06/20 Angélica Doan DO [address] [place] [address] Peripheral Vascular 01/05/21 Rolly Smith [address] [place] [address] Cardiology 01/05/21 Erin Robledo MD [address] [place] [address] Vascular Surgery 01/26/21 Level Vial Grinder Relationship Specialty Start Date End Date Mady Dunn MD [address] [facility] [place] [place] [address] PCP - General Internal Medicine 12/21/16 Alison Hi, crime prevention police officerSpool Sorter Internal Medicine 11/06/20 Angélica Doan, DO [address] [facility] [place] [address] Peripheral Vascular 01/05/21 Rolly Smith [address] [place] [phone] Cardiology 01/05/21 Erin Robledo MD [address] [place] [address] Vascular Surgery 01/26/21 Level Vial Grinder Relationship Specialty Start Date End Date Mady Dunn MD [address] [facility] [place] [place] [address] PCP - General Internal Medicine 12/21/16 Alison Hi RN Spool Sorter Internal Medicine 11/06/20 Angélica Doan, DO [address] [facility] [place] [address] Peripheral Vascular 01/05/21 Rolly Smith [address] [place] [address] Cardiology 01/05/21 Erin Robledo MD [address] [place] [address] Vascular Surgery 01/26/21 Level Vial Grinder Relationship Specialty Start Date End Date Mady Dunn MD [address] [place] [address] PCP - General Internal Medicine 12/21/16 Alison Hi, crime prevention police officerSpool Sorter Internal Medicine 11/06/20 Angélica Doan, [address] [place], [place] [address] Peripheral Vascular 01/05/21 Rolly Smith [address] [place] [phone] Cardiology 01/05/21 Erin Robledo MD [address] [place] [address] Vascular Surgery 01/26/21 Level Vial Grinder Relationship Specialty Start Date End Date Mady Dunn MD [address] [place] [address] PCP - General Internal Medicine 12/21/16 Alison Hi, crime prevention police officerSpool Sorter Internal Medicine 11/06/20 Angélica Doan, DO [address] [place], [place] [id number] Peripheral Vascular 01/05/21 Rolly Smith [address] [place] [address] Cardiology 01/05/21 Erin Robledo MD [address] [place] [phone] Vascular Surgery 01/26/21 Level Vial Grinder Relationship Specialty Start Date End Date Mady Dunn MD [address] [place] [address] PCP - General Internal Medicine 12/21/16 Alison Hi, crime prevention police officerSpool Sorter Internal Medicine 11/06/20 Angélica Doan, [address] [place], [place] [address] Peripheral Vascular 01/05/21 Rolly Smith [address] [place] [phone] Cardiology 01/05/21 Erin Robledo MD [address] [place] [address] Vascular Surgery 01/26/21 Level Vial Grinder Relationship Specialty Start Date End Date Mady Dunn MD [address] [place] [address] PCP - General Internal Medicine 12/21/16 Alison Hi, crime prevention police officerSpool Sorter Internal Medicine 11/06/20 Angélica Doan, [address] [place] [id number] Peripheral Vascular 01/05/21 Rolly Smith [address] [place] [phone] Cardiology 01/05/21 Erin Robledo MD [address] [place] [address] Vascular Surgery 01/26/21 Level Vial Grinder Relationship Specialty Start Date End Date Mady Dunn MD [address] [place], [place] [address] PCP - General Internal Medicine 12/21/16 Alison Hi, crime prevention police officerSpool Sorter Internal Medicine 11/06/20 Angélica Doan, [address] [place] [address] Peripheral Vascular 01/05/21 Rolly Smith [address] [place] [phone] Cardiology 01/05/21 Erin Robledo MD [address] [place], [place] [phone] Vascular Surgery 01/26/21 Level Vial Grinder Relationship Specialty Start Date End Date Mady Dunn MD [address] [place], [place] [address] PCP - General Internal Medicine 12/21/16 Alison Hi, crime prevention police officerSpool Sorter Internal Medicine 11/06/20 Angélica Doan, DO [address] [place] [address] Peripheral Vascular 01/05/21 Rolly Smith [address] [place] [phone] Cardiology 01/05/21 Erin Robledo MD [address] [place] [address] Vascular Surgery 01/26/21 Level Vial Grinder Relationship Specialty Start Date End Date Mady Dunn MD [address] [place] [address] PCP - General Internal Medicine 12/21/16 Alison Hi, crime prevention police officerSpool Sorter Internal Medicine 11/06/20 Angélica Doan, DO [address] [facility] [place] [address] Peripheral Vascular 01/05/21 Rolly Smith [address] [place] [address] Cardiology 01/05/21 Erin Robledo MD [address] [place] [address] Vascular Surgery 01/26/21 Team Status: Inactive Member Role Status Dates Dr. Mady Dunn MD Primary Care Provider Active Dr. Guero Hernandez MD Attending Provider, Emergency Provider Active Team Status: Inactive Member Role Status Dates Dr. Mady Dunn MD Primary Care Provider Active Dr. Jose Raymundo MD Attending Provider, Referred [facility] g Provider Active Level Vial Grinder Relationship Specialty Start Date End Date Mady Dunn MD [address] [facility] [place] [place] [address] PCP - General Internal Medicine 12/21/16 Alison Hi, crime prevention police officerSpool Sorter Internal Medicine 11/06/20 Angélica Doan, DO [address] [facility] [place] [address] Peripheral Vascular 01/05/21 Rolly Smith [address] [place] [address] Cardiology 01/05/21 Erin Robledo MD [address] [place] [address] Vascular Surgery 01/26/21 Level Vial Grinder Relationship Specialty Start Date End Date Mady Dunn MD [address] [place] [address] PCP - General Internal Medicine 12/21/16 Alison Hi, crime prevention police officerSpool Sorter Internal Medicine 11/06/20 Angélica Doan, [address] [place] [address] Peripheral Vascular 01/05/21 Rolly Smith [address] [facility] [facility] [address] [place] [address] Cardiology 01/05/21 Erin Robledo MD [address] [place] [address] Vascular Surgery 01/26/21 Level Vial Grinder Relationship Specialty Start Date End Date Mady Dunn MD [address] [place] [address] PCP - General Internal Medicine 12/21/16 Alison Hi, crime prevention police officerSpool Sorter Internal Medicine 11/06/20 Angélica Doan, DO [address] [place] [address] Peripheral Vascular 01/05/21 Rolly Smith MD [address] [facility] [address] [facility] [address] [place] [address] Cardiology 01/05/21 Erin Robledo MD [address] [place], [place] [phone] Vascular Surgery 01/26/21 Team Status: Active Member Role Status Dates Dr. Mady Dunn MD Primary Care Provider Active Dr. Herrera Thompson DO Emergency Provider Active Dr. Anya Campa MD Admit Provider, Attending Prov ider Active Level Vial Grinder Relationship Specialty Start Date End Date Mady Dunn MD [address] [facility], [place] [address] PCP - General Internal Medicine 12/21/16 Alison Hi, crime prevention police officerSpool Sorter Internal Medicine 11/06/20 Angélica Doan, DO [address] [facility] [place] [address] Peripheral Vascular 01/05/21 Rolly Smith MD [address] [place] [address] Cardiology 01/05/21 Erin Robledo MD [address] [place], [place] [phone] Vascular Surgery 01/26/21 Level Vial Grinder Relationship Specialty Start Date End Date Mady Dunn MD [address] [facility] [place] [place] [address] PCP - General Internal Medicine 12/21/16 Alison Hi, crime prevention police officerSpool Sorter Internal Medicine 11/06/20 Angélica Doan, DO [address] [facility] [place] [address] Peripheral Vascular 01/05/21 Rolly Smith MD [address] [place] [address] Cardiology 01/05/21 Erin Robledo MD [address] [place], [place] [phone] Vascular Surgery 01/26/21 Level Vial Grinder Relationship Specialty Start Date End Date Mady Dunn MD [address] [facility] [place] [place] [address] PCP - General Internal Medicine 12/21/16 Alison Hi, crime prevention police officerSpool Sorter Internal Medicine 11/06/20 Angélica Doan DO [address] [facility] [place] [address] Peripheral Vascular 01/05/21 Rolly Smith MD [address] [place] [address] Cardiology 01/05/21 Erin Robledo MD [address] [place] [address] Vascular Surgery 01/26/21 Team Status: Active Member Role Status Dates Dr. Mady Dunn MD Primary Care Provider Active Dr. Herrera Thompson , Emergency Provider Active Dr. Anya Campa MD Admit Provider, Attending Provider, Other Provider Active Team Status: Active Member Role Status Dates Dr. Mady Dunn MD Primary Care Provider Active Dr. Herrera Thompson DO Emergency Provider Active Dr. Anya Campa MD Admit Provider, Other Provider Active Dr. Juan Esteves MD Attending Provider, Other Provi sarbjit Active Team Status: Active Member Role Status Dates Dr. Mady Dunn MD Primary Care Provider Active Dr. Haroldo Don MD Attending Provider, Referring Pr ovider Active Team Status: Inactive Member Role Status Dates Dr. Mady Dunn MD Primary Care Provider Active Dr. Herrera Thompson DO Emergency Provider Active Dr. Anya Campa MD Admit Provider, Other Provider Active Dr. Juan Esteves MD Attending Provider Active Team Status: Active Member Role Status Dates Dr. Mady Dunn MD Primary Care Provider Active Patient Link Program Attending Provider, Referring Pro vider Active Team Status: Inactive Member Role Status Dates Dr. Mady Dunn MD Primary Care Provider Active Dr. Jay De Luna DO Emergency Provider Active Team Status: Inactive Member Role Status Dates Dr. Mady Dunn MD Primary Care Provider Active Dr. Jay De Luna DO Attending Provider, Emergency P rhea Active Level Vial Grinder Relationship Specialty Start Date End Date Mady Dunn MD [address] [place] [address] PCP - General Internal Medicine 12/21/16 Alison Hi, crime prevention police officerSpool Sorter Internal Medicine 11/06/20 Angélica Doan DO [address] [place] [address] Peripheral Vascular 01/05/21 Rolly Smith MD [address] [place] [address] Cardiology 01/05/21 Erin Robledo MD [address] [place], [place] [phone] Vascular Surgery 01/26/21 Team Status: Inactive Member Role Status Dates Dr. Mady Dunn MD Primary Care Provider, Referr ing Provider Active Dr. Juvenal Thompson MD Attending Provider Active Team Status: Active Member Role Status Dates Dr. Mady Dunn MD Primary Care Provider Active Dr. Matthew Schuster DO Emergency Provider Active Dr. Yenny Abdul MD Attending Provider Active Team Status: Active Member Role Status Dates Dr. Mady Dunn MD Primary Care Provider Active Swapna JACOBSON, PA Attending Provider, Referr ing Provider Active Team Status: Active Member Role Status Dates Dr. Mady Dunn MD Primary Care Provider Active Dr. Matthew Schuster DO Emergency Provider Active Dr. Yenny Abdul MD Admit Provider, Attending Provid er Active Team Status: Active Member Role Status Dates Dr. Mady Dunn MD Primary Care Provider Active Dr. Matthew Schuster DO Emergency Provider Active Dr. Yenny Abdul MD Admit Provider, Other Provider A ctive Dr. Herrera Bauman , Attending Provider, Other Provid er Active Team Status: Inactive Member Role Status Dates Dr. Mady Dunn MD Primary Care Provider Active Dr. Matthew Schuster DO Emergency Provider Active Dr. Yenny Abdul MD Admit Provider, Other Provider A ctive Dr. Herrera Bauman DO Attending Provider Active Team Status: Inactive Member Role Status Dates Dr. Mady Dunn MD Primary Care Provider Active Swapna JACOBSON, [place] Attending Provider, Referr ing Provider Active Level Vial Grinder Relationship Specialty Start Date End Date Mady Dunn MD [address] [place] [address] PCP - General Internal Medicine 12/21/16 Alison Hi, crime prevention police officerSpool Sorter Internal Medicine 11/06/20 Angélica Doan DO [address] [place] [address] Peripheral Vascular 01/05/21 Rolly Smith MD [address] [place] [address] Cardiology 01/05/21 Erin Robledo MD [address] [place], [place] [phone] Vascular Surgery 01/26/21 Level Vial Grinder Relationship Specialty Start Date End Date Mady Dunn MD [address] [facility] [place] [place] [address] PCP - General Internal Medicine 12/21/16 Alison Hi, crime prevention police officerSpool Sorter Internal Medicine 11/06/20 Angélica Doan, DO [address] [facility] [place] [address] Peripheral Vascular 01/05/21 Rolly Smith MD [address] [place], [place] [address] Cardiology 01/05/21 Erin Robledo MD [address] [place], [place] [id number] Vascular Surgery 01/26/21 Team Status: Active Member Role Status Dates Dr. Mady Dunn MD Primary Care Provider Active Dr. Herrera Goodrich MD Attending Provider Active Team Status: Inactive Member Role Status Dates Dr. Mady Dunn MD Primary Care Provider Active Dr. Juvenal Thompson MD Attending Provider, Referring Provider Active Team Status: Active Member Role Status Dates Dr. Mady Dunn MD Primary Care Provider Active Dr. Matthew Schuster DO Emergency Provider Active Dr. Noble Reynolds DO Admit Provider, Attending Pro vider Active Level Vial Grinder Relationship Specialty Start Date End Date Mady Dunn MD [address] [facility] [place] [place] [address] PCP - General Internal Medicine 12/21/16 Alison Hi, crime prevention police officerSpool Sorter Internal Medicine 11/06/20 Angélica Doan, DO [address] [facility] [place] [address] Peripheral Vascular 01/05/21 Rolly Smith MD [address] [place] [address] Cardiology 01/05/21 Erin Robledo MD [address] [place] [address] Vascular Surgery 01/26/21 Team Status: Active Member Role Status Dates Dr. Mady Dunn MD Primary Care Provider Active Dr. Herrera Goodrich MD Attending Provider Active Dr. Juvenal Thompson MD Referring Provider Active Team Status: Active Member Role Status Dates Dr. Mady Dunn MD Primary Care Provider Active Dr. Matt Mcclure MD Attending Provider Active Team Status: Active Member Role Status Dates Dr. Mady Dunn MD Primary Care Provider Active Dr. Matthew Schuster DO Emergency Provider Active Dr. Noble Reynolds DO Admit Provider, Attending Provider, Other Provider Active Dr. Juvenal Thompson MD Other Provider Active Team Status: Active Member Role Status Dates Dr. Mady Dunn MD Primary Care Provider Active Dr. Matthew Schuster DO Emergency Provider Active Dr. Noble Reynolds DO Admit Provider, Other Provide r Active Dr. Juvenal Thompson MD Attending Provider, Other Prov ider Active Team Status: Active Member Role Status Dates Dr. Mady Dunn MD Primary Care Provider Active Dr. Matthew Schuster DO Emergency Provider Active Dr. Noble Reynolds DO Admit Provider, Other Provide r Active Dr. Juvenal Thompson MD Other Provider Active Dr. Juan Esteves MD Attending Provider, Other Provi sarbjit Active Team Status: Active Member Role Status Dates Dr. Mady Dunn MD Primary Care Provider Active Dr. Matthew Schuster DO Emergency Provider Active Dr. Noble Reynolds DO Admit Provider, Other Provide r Active Dr. Juvenal Thompson MD Other Provider Active Dr. Juan Esteves MD Attending Provider, Other Provi sarbjit Active Dr. Alisia Lawrence MD Other Provider Active Team Status: Inactive Member Role Status Dates Dr. Mady Dunn MD Primary Care Provider Active Dr. Matthew Schuster DO Emergency Provider Active Dr. Noble Reynolds DO Admit Provider, Other Provide r Active Dr. Juvenal Thompson MD Other Provider Active Dr. Juan Esteves MD Attending Provider Active Dr. Alisia Lawrence MD Other Provider Active Team Status: Inactive Member Role Status Dates Dr. Mady Dunn MD Primary Care Provider Active Dr. Richy Pierson MD Attending Provider, Referring Pr ovider Active Team Status: Active Member Role Status Dates Dr. Mady Dunn MD Primary Care Provider Active Dr. Richy Pierson MD Admit Provider, Attending Provid er Active Level Vial Grinder Relationship Specialty Start Date End Date Mady Dunn MD [address] [place] [address] PCP - General Internal Medicine 12/21/16 Alison Hi, crime prevention police officerSpool Sorter Internal Medicine 11/06/20 Angélica Doan DO [address] [facility] [place] [place] [address] Peripheral Vascular 01/05/21 Rolly Smith MD [address] [place] [address] Cardiology 01/05/21 Erin Robledo MD [address] [place], [place] [id number] Vascular Surgery 01/26/21 Team Status: Active Member Role Status Dates Dr. Mady Dunn MD Primary Care Provider Active Dr. Richy Pierson MD Admit Provider, Other Provider A ctive Dr. Teodoro Real , Attending Provider Active Team Status: Active Member Role Status Dates Dr. Mady Dunn MD Primary Care Provider, Referr ing Provider Active Dr. Teodoro Real DO Attending Provider, Other Prov ider Active Team Status: Inactive Member Role Status Dates Dr. Mady Dunn MD Primary Care Provider, Referr ing Provider Active Dr. Teodoro Real DO Attending Provider Active Team Status: Active Member Role Status Dates Dr. Mady Dunn MD Primary Care Provider Active Dr. Richy Pierson MD Admit Provider, Re ferring Provider, Other Provider Active Dr. Teodoro Real , Attending Provider Active Team Status: Active Member Role Status Dates Dr. Mady Dunn MD Primary Care Provider Active Dr. Matthew Schuster DO Emergency Provider Active Team Status: Inactive Member Role Status Dates Dr. Mady Dunn MD Primary Care Provider Active Dr. Richy Pierson MD Admit Provider, Attending Provid er Active Team Status: Active Member Role Status Dates Dr. Mady Dunn MD Primary Care Provider Active Dr. Matthew Schuster DO Emergency Provider Active Dr. Jorje Hood DO Admit Provider, Attending Pr ovider Active Team Status: Active Member Role Status Dates Dr. Mady Dunn MD Primary Care Provider Active Dr. Matthew Schuster DO Emergency Provider Active Dr. Jorje Hood DO Admit Provider, Other Provid er Active Dr. Herrera Bauman DO Attending Provider, Other Provid er Active Team Status: Inactive Member Role Status Dates Dr. Mady Dunn MD Primary Care Provider Active Dr. Matthew Schuster DO Emergency Provider Active Dr. Jorje Hood DO Admit Provider, Other Provid er Active Dr. Herrera Bauman DO Attending Provider Active Team Status: Inactive Member Role Status Dates Dr. Mady Dunn MD Primary Care Provider Active Dr. Richy Pierson MD Admit Provider, Attending Provid er Active Dr. Jorje Bey DO Other Provider Active Dr. Sharron Bland MD Other Provider Active Maria T Dougherty NP-C Other Provider Active Irma Santiago NP, AUDIO SPECIALIST-C Other Provider Active Level Vial Grinder Relationship Specialty Start Date End Date Mady Dunn MD [address] [place] [address] PCP - General Internal Medicine 12/21/16 Alison Hi, crime prevention police officerSpool Sorter Internal Medicine 11/06/20 Angélica Doan, [address] [facility] [place] [address] Peripheral Vascular 01/05/21 Rolly Smith MD [address] [facility] [address] [place] [address] Cardiology 01/05/21 Erin Robledo MD [address] [facility] [address] [place] [address] Vascular Surgery 01/26/21 Level Vial Grinder Relationship Specialty Start Date End Date Mady Dunn MD [address] [place] [address] PCP - General Internal Medicine 12/21/16 Alison Hi, crime prevention police officerSpool Sorter Internal Medicine 11/06/20 Angélica Doan, DO [address] [place] [address] Peripheral Vascular 01/05/21 Rolly Smith MD [address] [facility] [address] [place] [address] Cardiology 01/05/21 Erin Robledo MD [address] [facility] [address] [place] [address] Vascular Surgery 01/26/21 Level Vial Grinder Relationship Specialty Start Date End Date Mady Dunn MD [address] [place] [address] PCP - General Internal Medicine 12/21/16 Alison Hi crime prevention police officerSpool Sorter Internal Medicine 11/06/20 Angélica Doan, DO [address] [place] [address] Peripheral Vascular 01/05/21 Rolly Smith MD [address] [place] [address] Cardiology 01/05/21 Erin Robledo MD [address] [place] [address] Vascular Surgery 01/26/21 Level Vial Grinder Relationship Specialty Start Date End Date Mady Dunn MD [address] [place] [address] PCP - General Internal Medicine 12/21/16 Alison Hi, crime prevention police officerSpool Sorter Internal Medicine 11/06/20 Angélica Doan, DO [address] [place] [address] Peripheral Vascular 01/05/21 Rolly Smith MD [address] [place] [address] Cardiology 01/05/21 Erin Robledo MD [address] [place] [address] Vascular Surgery 01/26/21 Level Vial Grinder Relationship Specialty Start Date End Date Mady Dunn MD [address] [place] [address] PCP - General Internal Medicine 12/21/16 Alison Hi, crime prevention police officerSpool Sorter Internal Medicine 11/06/20 Angélica Doan, DO [address] [place] [address] Peripheral Vascular 01/05/21 Rolly Smith MD [address] [place] [address] Cardiology 01/05/21 Erin Robledo MD [address] [place] [address] Vascular Surgery 01/26/21 Level Vial Grinder Relationship Specialty Start Date End Date Mady Dunn MD [address] [place] [address] PCP - General Internal Medicine 12/21/16 Alison Hi, crime prevention police officerSpool Sorter Internal Medicine 11/06/20 Angélica Doan, DO [address] [place] [address] Peripheral Vascular 01/05/21 Rolly Smith MD [address] [place] [address] Cardiology 01/05/21 Erin Robledo MD [address] [place] [address] Vascular Surgery 01/26/21 Level Vial Grinder Relationship Specialty Start Date End Date Mady Dunn MD [address] [place] [address] PCP - General Internal Medicine 12/21/16 Alison Hi, crime prevention police officerSpool Sorter Internal Medicine 11/06/20 Angélica Doan, DO [address] [place] [address] Peripheral Vascular 01/05/21 Rolly Smith MD [address] [place] [address] Cardiology 01/05/21 Erin Robledo MD [address] [place] [address] Vascular Surgery 01/26/21 Level Vial Grinder Relationship Specialty Start Date End Date Mady Dunn MD [address] [facility] [place] [place] [address] PCP - General Internal Medicine 12/21/16 Alison Hi, crime prevention police officerSpool Sorter Internal Medicine 11/06/20 Angélica Doan, DO [address] [place] [address] Peripheral Vascular 01/05/21 Rolly Smith MD [address] [place] [address] Cardiology 01/05/21 Erin Robledo MD [address] [place] [address] Vascular Surgery 01/26/21 Level Vial Grinder Relationship Specialty Start Date End Date Mady Dunn MD [address] [place] [address] PCP - General Internal Medicine 12/21/16 Alison Hi, crime prevention police officerSpool Sorter Internal Medicine 11/06/20 Angélica Doan, DO [address] [place] [address] Peripheral Vascular 01/05/21 Rolly Smith MD [address] [place] [address] Cardiology 01/05/21 Erin Robledo MD [address] [place] [address] Vascular Surgery 01/26/21 Level Vial Grinder Relationship Specialty Start Date End Date Mady Dunn MD [address] [place] [address] PCP - General Internal Medicine 12/21/16 Alison Hi, crime prevention police officerSpool Sorter Internal Medicine 11/06/20 Angélica Doan DO [address] [facility] [place] [address] Peripheral Vascular 01/05/21 Rolly Smith MD [address] [place] [address] Cardiology 01/05/21 Erin Robledo MD [address] [place] [address] Vascular Surgery 01/26/21 Team Status: Active Member Role Status Dates Dr. Mady Dunn MD Primary Care Provider Active Dr. Ana Grayson MD Emergency Provider Active Dr. Pema Sal MD Admit Provider, Attending Prov ider Active Team Status: Active Member Role Status Dates Dr. Mady Dunn MD Primary Care Provider Active Dr. Ana Grayson MD Emergency Provider Active Dr. Pema Sal MD Admit Provider, Other Provider Active Dr. Herrera Bauman DO Attending Provider, Other Provid er Active Team Status: Active Member Role Status Dates Dr. Mady Dunn MD Primary Care Provider Active Dr. Ana Grayson MD Emergency Provider Active Dr. Pema Sal MD Admit Provider, Attending Provider, Other Provider Active Dr. Herrera Bauman DO Other Provider Active Team Status: Inactive Member Role Status Dates Dr. Mady Dunn MD Primary Care Provider Active Dr. Ana Grayson MD Emergency Provider Active Dr. Pema Sal MD Admit Provider, Attending Provider, Other Provider Active Dr. Herrera Bauman DO Other Provider Active Team Status: Inactive Member Role Status Dates Dr. Mady Dunn MD Primary Care Provider Active Maddsion Renteria AUDIO SPECIALIST, AUDIO SPECIALIST-C Attending Provider, Referring Pr ovider Active Level Vial Grinder Relationship Specialty Start Date End Date Mady Dunn MD [address] [place], [place] [address] PCP - General Internal Medicine 12/21/16 Alison Hi, crime prevention police officerSpool Sorter Internal Medicine 11/06/20 Angélica Doan, [address] [place] [address] Peripheral Vascular 01/05/21 Rolly Smith MD [address] [place] [address] Cardiology 01/05/21 Erin Robledo MD [address] [facility] [facility] [address] [place] [address] Vascular Surgery 01/26/21 Level Vial Grinder Relationship Specialty Start Date End Date Mady Dunn MD [address] [place] [address] PCP - General Internal Medicine 12/21/16 Alison Hi, crime prevention police officerSpool Sorter Internal Medicine 11/06/20 Angélica Doan, DO [address] [place] [address] Peripheral Vascular 01/05/21 Rolly Smith MD [address] [place] [address] Cardiology 01/05/21 Erin Robledo MD [address] [place] [address] Vascular Surgery 01/26/21 Level Vial Grinder Relationship Specialty Start Date End Date Mady Dunn MD [address] [place] [address] PCP - General Internal Medicine 12/21/16 Alison Hi, crime prevention police officerSpool Sorter Internal Medicine 11/06/20 Angélica Doan, DO [address] [place] [address] Peripheral Vascular 01/05/21 Rolly Smith MD [address] [place] [address] Cardiology 01/05/21 Erin Robledo MD [address] [place] [address] Vascular Surgery 01/26/21 Level Vial Grinder Relationship Specialty Start Date End Date Mady Dunn MD [address] [place] [address] PCP - General Internal Medicine 12/21/16 Alison Hi, crime prevention police officerSpool Sorter Internal Medicine 11/06/20 Angélica Doan, DO [address] [place] [address] Peripheral Vascular 01/05/21 Rolly Smith MD [address] [place] [address] Cardiology 01/05/21 Erin Robledo MD [address] [place] [address] Vascular Surgery 01/26/21 Level Vial Grinder Relationship Specialty Start Date End Date Mady Dunn MD [address] [facility] [place] [place] [address] PCP - General Internal Medicine 12/21/16 Alison Hi, crime prevention police officerSpool Sorter Internal Medicine 11/06/20 Angélica Doan, DO [address] [facility] [place] [address] Peripheral Vascular 01/05/21 Rolly Smith MD [address] [place] [address] Cardiology 01/05/21 Erin Robledo MD [address] [place] [address] Vascular Surgery 01/26/21 Level Vial Grinder Relationship Specialty Start Date End Date Mady Dunn MD [address] [facility] [place] [place] [address] PCP - General Internal Medicine 12/21/16 Alison Hi, crime prevention police officerSpool Sorter Internal Medicine 11/06/20 Angélica Doan, DO [address] [place] [address] Peripheral Vascular 01/05/21 Rolly Smith MD [address] [place] [address] Cardiology 01/05/21 Erin Robledo MD [address] [place] [address] Vascular Surgery 01/26/21 Level Vial Grinder Relationship Specialty Start Date End Date Mady Dunn MD [address] [facility] [place] [place] [address] PCP - General Internal Medicine 12/21/16 Alison Hi, crime prevention police officerSpool Sorter Internal Medicine 11/06/20 Angélica Doan, DO [address] [facility] [place] [address] Peripheral Vascular 01/05/21 Rolly Smith MD [address] [place] [address] Cardiology 01/05/21 Erin Robledo MD [address] [place] [address] Vascular Surgery 01/26/21 Level Vial Grinder Relationship Specialty Start Date End Date Mady Dunn MD [address] [facility] [place] [place] [address] PCP - General Internal Medicine 12/21/16 Alison Hi, crime prevention police officerSpool Sorter Internal Medicine 11/06/20 Angélica Doan, DO [address] [facility] [address] Peripheral Vascular 01/05/21 Rolly Smith MD [address] [place] [address] Cardiology 01/05/21 Erin Robledo MD [address] [place] [address] Vascular Surgery 01/26/21 Level Vial Grinder Relationship Specialty Start Date End Date Mady Dunn MD [address] [facility] [place] [place] [address] PCP - General Internal Medicine 12/21/16 Alison Hi, crime prevention police officerSpool Sorter Internal Medicine 11/06/20 Angélica Doan, DO [address] [facility] [address] Peripheral Vascular 01/05/21 Rolly Smith MD [address] [place] [address] Cardiology 01/05/21 Erin Robledo MD [address] [place] [address] Vascular Surgery 01/26/21 Level Vial Grinder Relationship Specialty Start Date End Date Mady Dunn MD [address] [facility] [place] [place] [address] PCP - General Internal Medicine 12/21/16 Alison Hi, crime prevention police officerSpool Sorter Internal Medicine 11/06/20 Angélica Doan, DO [address] [facility] [address] Peripheral Vascular 01/05/21 Rolly Smith MD [address] [place] [address] Cardiology 01/05/21 Erin Robledo MD [address] [place] [address] Vascular Surgery 01/26/21 Level Vial Grinder Relationship Specialty Start Date End Date Mady Dunn MD [address] [facility] [place] [place] [address] PCP - General Internal Medicine 12/21/16 Alison Hi, crime prevention police officerSpool Sorter Internal Medicine 11/06/20 Angélica Doan, DO [address] [place] [address] Peripheral Vascular 01/05/21 Rolly Smith MD [address] [place] [address], [place] [address] Cardiology 01/05/21 Erin Robledo MD [address] [place] [address] Vascular Surgery 01/26/21 Level Vial Grinder Relationship Specialty Start Date End Date Mady Dunn MD [address] [facility] [place] [place] [address] PCP - General Internal Medicine 12/21/16 Alison Hi, crime prevention police officerSpool Sorter Internal Medicine 11/06/20 Angélica Doan, DO [address] [facility] [address] Peripheral Vascular 01/05/21 Rolly Smith MD [address] [place] [address] Cardiology 01/05/21 Erin Robledo MD [address] [place] [address] Vascular Surgery 01/26/21 Level Vial Grinder Relationship Specialty Start Date End Date Mady Dunn MD [address] [place] [address] PCP - General Internal Medicine 12/21/16 Alison Hi, crime prevention police officerSpool Sorter Internal Medicine 11/06/20 Angélica Doan, [address] [place] [address] Peripheral Vascular 01/05/21 Rolly Smith MD [address] [place] [address] Cardiology 01/05/21 Erin Robledo MD [address] [place] [address] Vascular Surgery 01/26/21 Level Vial Grinder Relationship Specialty Start Date End Date Mady Dunn MD [address] [place] [address] PCP - General Internal Medicine 12/21/16 Alison Hi, crime prevention police officerSpool Sorter Internal Medicine 11/06/20 Angélica Doan, [address] [place] [address] Peripheral Vascular 01/05/21 Rolly Smith MD [address] [place] [address] Cardiology 01/05/21 Erin Robledo MD [address] [place] [address] Vascular Surgery 01/26/21 Level Vial Grinder Relationship Specialty Start Date End Date Mady Dunn MD [address] [place] [address] PCP - General Internal Medicine 12/21/16 Alison Hi, crime prevention police officerSpool Sorter Internal Medicine 11/06/20 Angélica Doan, [address] [place] [address] Peripheral Vascular 01/05/21 Rolly Smith MD [address] [place] [address] Cardiology 01/05/21 Erin Robledo MD [address] [place] [address] Vascular Surgery 01/26/21 Level Vial Grinder Relationship Specialty Start Date End Date Mady Dunn MD [address] [place] [address] PCP - General Internal Medicine 12/21/16 Alison Hi, crime prevention police officerSpool Sorter Internal Medicine 11/06/20 Angélica Doan, [address] [place] [address] Peripheral Vascular 01/05/21 Rolly Smith MD [address] [place] [address] Cardiology 01/05/21 Erin Robledo MD [address] [place] [address] Vascular Surgery 01/26/21 Level Vial Grinder Relationship Specialty Start Date End Date Mady Dunn MD [address] [place] [address] PCP - General Internal Medicine 12/21/16 Alison Hi, crime prevention police officerSpool Sorter Internal Medicine 11/06/20 Angélica Doan, [address] [place] [address] Peripheral Vascular 01/05/21 Rolly Smith MD [address] [place] [address] Cardiology 01/05/21 Erin Robledo MD [address] [place] [address] Vascular Surgery 01/26/21 Level Vial Grinder Relationship Specialty Start Date End Date Mady Dunn MD [address] [place] [address] PCP - General Internal Medicine 12/21/16 Alison Hi, crime prevention police officerSpool Sorter Internal Medicine 11/06/20 Angélica Doan, [address] [place] [address] Peripheral Vascular 01/05/21 Rolly Smith MD [address] [place] [address] Cardiology 01/05/21 Erin Robledo MD [address] [place] [address] Vascular Surgery 01/26/21 Level Vial Grinder Relationship Specialty Start Date End Date Mady Dunn MD [address] [facility] [place] [place] [address] PCP - General Internal Medicine 12/21/16 Alison Hi, crime prevention police officerSpool Sorter Internal Medicine 11/06/20 Angélica Doan DO [address] [facility] [place] [address] Peripheral Vascular 01/05/21 Rolly Smith MD [address] [place] [address] Cardiology 01/05/21 Erin Robledo MD [address] [place] [address] Vascular Surgery 01/26/21 Level Vial Grinder Relationship Specialty Start Date End Date Mady Dunn MD [address] [place] [address] PCP - General Internal Medicine 12/21/16 Alison Hi, crime prevention police officerSpool Sorter Internal Medicine 11/06/20 Angélica Doan DO [address] [facility] [place] [address] Peripheral Vascular 01/05/21 Rolly Smith MD [address] [place] [address] Cardiology 01/05/21 Erin Robledo MD [address] [place] [address] Vascular Surgery 01/26/21 Level Vial Grinder Relationship Specialty Start Date End Date Mady Dunn MD [address] [facility] [place] [place] [address] PCP - General Internal Medicine 12/21/16 Alison Hi, crime prevention police officerSpool Sorter Internal Medicine 11/06/20 Angélica Doan, DO [address] [facility] [place] [address] Peripheral Vascular 01/05/21 Rolly Smith MD [address] [place] [address] Cardiology 01/05/21 Erin Robledo MD [address] [place] [address] Vascular Surgery 01/26/21 Level Vial Grinder Relationship Specialty Start Date End Date Mady Dunn MD [address] [facility], [place] [address] PCP - General Internal Medicine 12/21/16 Alison Hi, crime prevention police officerSpool Sorter Internal Medicine 11/06/20 Angélica Doan, DO [address] [facility] [place] [address] Peripheral Vascular 01/05/21 Rolly Smith MD [address] [place] [address] Cardiology 01/05/21 Erin Robledo MD [address] [place] [address] Vascular Surgery 01/26/21 Level Vial Grinder Relationship Specialty Start Date End Date Mady Dunn MD [address] [facility] [place] [place] [address] PCP - General Internal Medicine 12/21/16 Alison Hi, crime prevention police officerSpool Sorter Internal Medicine 11/06/20 Angélica Doan, DO [address] [facility] [address] Peripheral Vascular 01/05/21 Rolly Smith MD [address] [place] [address] Cardiology 01/05/21 Erin Robledo MD [address] [place] [address] Vascular Surgery 01/26/21 Level Vial Grinder Relationship Specialty Start Date End Date Mady Dunn MD [address] [facility], [place] [address] PCP - General Internal Medicine 12/21/16 Alison Hi RN Spool Sorter Internal Medicine 11/06/20 Angélica Doan, DO [address] [facility] [address] Peripheral Vascular 01/05/21 Rolly Smith MD [address] [place] [address] Cardiology 01/05/21 Erin Robledo MD [address] [place] [address] Vascular Surgery 01/26/21 Maddison Renteria, AMY.PRODUCE ASSISTANT [address] [place] [address] Air Crew Supervisor Internal Medicine 06/25/24 Rosaura Suárez CENTRAL SUPPLY TECH.YARD CRANE OPERATOR [address] [place] [address] [id number] Air Crew Supervisor Internal Medicine 06/25/24 Level Vial Grinder Relationship Specialty Start Date End Date Mady Dunn MD [address] [place] [address] PCP - General Internal Medicine 12/21/16 07/05/24 Viktoriya Manzo MD [address] [place] [address] PCP - General Internal Medicine 07/06/24 Alison Hi, crime prevention police officerSpool Sorter Internal Medicine 11/06/20 Angélica Doan DO [address] [place] [address] Peripheral Vascular 01/05/21 Rolly Smith MD [address] [facility] [address] [place] [address] Cardiology 01/05/21 Erin Robledo MD [address] [facility] [address] [place], [place] [address] Vascular Surgery 01/26/21 Maddison Renteria, AMY.PRODUCE ASSISTANT [address] [place], [place] [address] Air Crew Supervisor Internal Medicine 06/25/24 Rosaura Suárez CENTRAL SUPPLY TECH.YARD CRANE OPERATOR [address] [place] [address] [facility] Internal [facility] 06/25/24 Level Vial Grinder Relationship Specialty Start Date End Date Viktoriya Manzo MD [address] [place] [address] PCP - General Internal Medicine 07/06/24 Alison Hi, crime prevention police officerSpool Sorter Internal Medicine 11/06/20 Angélica Doan DO [address] [place] [address] Peripheral Vascular 01/05/21 Rolly Smith MD [address] [address] Cardiology 01/05/21 Erin Robledo MD 1 [facility] [address] [place] [address] Vascular Surgery 01/26/21 Maddison Renteria APRN.PRODUCE ASSISTANT [address] [place] [address] [facility] Internal Medicine 06/25/24 Rosaura Suárez CENTRAL SUPPLY TECH.YARD CRANE OPERATOR [address] [place] [address] [facility] Internal Medicine 06/25/24 Level Vial Grinder Relationship Specialty Start Date End Date Viktoriya Manzo MD [address] [place] [address] PCP - General Internal Medicine 07/06/24 Alison Hi, crime prevention police officerSpool Sorter Internal Medicine 11/06/20 5 Angélica Doan DO [address] [facility] [address] Peripheral Vascular 01/05/21 Rolly Smith MD [address] [place] [address] Cardiology 01/05/21 Erin Robledo MD [address] [place], [place] [id number] Vascular Surgery 01/26/21 Maddison Renteria APRN.PRODUCE ASSISTANT [address] [facility] [place] [place] [address] Air Crew Supervisor Internal Medicine 06/25/24 Rosaura Suárez, CENTRAL SUPPLY TECH.YARD CRANE OPERATOR [address] [place] [address] Air Crew Supervisor Internal Medicine 06/25/24 Level Vial Grinder Relationship Specialty Start Date End Date Viktoriya Manzo MD [address] [facility] [place] [place] [address] PCP - General Internal Medicine 07/06/24 Angélica Doan DO [address] [facility] [place] [address] Peripheral Vascular 01/05/21 Rolly Smith MD [address] [place] [address] Cardiology 01/05/21 Erin Robledo MD [address] [place] [address] Vascular Surgery 01/26/21 Maddison Renteria CENTRAL SUPPLY TECH.PRODUCE ASSISTANT [address] [place] [address] Air Crew Supervisor Internal Medicine 06/25/24 Rosaura Suárez CENTRAL SUPPLY TECH.YARD CRANE OPERATOR [address] [place] [address] [facility] Internal Medicine 06/25/24 Level Vial Grinder Relationship Specialty Start Date End Date Viktoriya Manzo MD [address] [place] [address] PCP - General Internal Medicine 07/06/24 Angélica Doan DO [address] [place] [address] Peripheral Vascular 01/05/21 Rolly Smith MD [address] [address] Cardiology 01/05/21 Erin Robledo MD 1 [facility] [address] [place] [address] Vascular Surgery 01/26/21 Maddison Renteria, CENTRAL SUPPLY TECH.PRODUCE ASSISTANT [address] [place] [address] [facility] Internal Medicine 06/25/24 Rosaura Suárez APRN.YARD CRANE OPERATOR [address] [place] [address] [facility] Internal Medicine 06/25/24 Level Vial Grinder Relationship Specialty Start Date End Date Viktoriya Manzo MD [address] [facility] [place] [place] [address] PCP - General Internal Medicine 07/06/24 Angélica Doan DO [address] [place] [address] Peripheral Vascular 01/05/21 Rolly Smith MD [address] [place] [address] Cardiology 01/05/21 Erin Robledo MD [address] [facility] [address] [place] [address] Vascular Surgery 01/26/21 Maddison Renteria APRN.PRODUCE ASSISTANT [address] [place] [address] Air Crew Supervisor Internal Medicine 06/25/24 Rosaura Suárez APRN.YARD CRANE OPERATOR [address] [place] [address] Air Crew Supervisor Internal Medicine 06/25/24 Level Vial Grinder Relationship Specialty Start Date End Date Viktoriya Manzo MD [address] [place] [address] PCP - General Internal Medicine 07/06/24 Angélica Doan DO [address] [facility] [place] [address] Peripheral Vascular 01/05/21 Rolly Smith MD [address] [place] [address] Cardiology 01/05/21 Erin Robledo MD [address] [place] [address] Vascular Surgery 01/26/21 Maddison Renteria APRN.PRODUCE ASSISTANT [address] [place] [address] Air Crew Supervisor Internal Medicine 06/25/24 Rosaura Suárez APRN.YARD CRANE OPERATOR [address] [place] [address] Air Crew Supervisor Internal Medicine 06/25/24 Diana Solares APRN.YARD CRANE OPERATOR [address] [place] [address] [facility] Internal Medicine 09/28/24 Level Vial Grinder Relationship Specialty Start Date End Date Viktoriya Manzo MD [address] [place] [address] PCP - General Internal Medicine 07/06/24 Angélica Doan DO [address] [place] [address] Peripheral Vascular 01/05/21 Rolly Smith MD [address] [place] [address] Cardiology 01/05/21 Erin Robledo MD [address] [place], [place] [address] [phone] Vascular Surgery 01/26/21 Maddison Renteria APRN.PRODUCE ASSISTANT [address] [place] [address] Air Crew Supervisor Internal Medicine 06/25/24 Rosaura Suárez APRN.YARD CRANE OPERATOR [address] [facility] [place] [place] [address] [facility] Internal Medicine 06/25/24 Diana Solares APRN.YARD CRANE OPERATOR [address] [facility] [place] [address] [facility] Internal Medicine 09/28/24 Level Vial Grinder Relationship Specialty Start Date End Date Viktoriya Manzo MD [address] [facility] [place] [place] [address] PCP - General Internal Medicine 07/06/24 Angélica Doan DO [address] [facility] [address] Peripheral Vascular 01/05/21 Rolly Smith MD [address] [place] [address] Cardiology 01/05/21 [facility]o MD [facility] [address] [address] [place] [address] Vascular Surgery 01/26/21 Diana Solares APRN.YARD CRANE OPERATOR [address] [facility] [place] [address] [facility] Internal Medicine 09/28/24 Team Status: Active Member Role Status Dates Dr. Viktoriya Manzo MD Primary Care Provider Active Team Status: Inactive Member Role Status Dates Rosaura Suárez AUDIO SPECIALIST, AUDIO SPECIALIST-C Primary Care Provider Active Start: June 06, 2024 End: June 08, 2024 Dr. Huan Lomas MD Referring Provider Active Sta rt: June 06, 2024 End: June 08, 2024 Dr. Huan Lomas MD Emergency Provider Active Sta rt: June 06, 2024 End: June 08, 2024 Dr. Jorje Hood DO Admit Provider Active Start: June 06, 2024 End: June 08, 2024 Dr. Jorje Hood DO Other Provider Active Start: June 06, 2024 End: June 08, 2024 Dr. Juan Esteves MD Attending Provider Active Start: June 06, 2024 End: June 08, 2024 Dr. Juan Esteves MD Other Provider Active Sta rt: June 06, 2024 Team Status: Active Member Role Status Dates Rosaura Suárez AUDIO SPECIALIST, AUDIO SPECIALIST-C Primary Care Provider Active Start: June 07, 2024 Dr. Huan Lomas MD Emergency Provider Active Sta rt: June 07, 2024 Dr. Jorje Hood DO Admit Provider Active Start: June 07, 2024 Dr. Jorje Hood DO Other Provider Active Start: June 07, 2024 Dr. Juan Esteves MD Attending Provider Active Start: June 07, 2024 Dr. Juan Esteves MD Other Provider Active Sta rt: June 07, 2024 Team Status: Active Member Role Status Dates Rosaura Suárez AUDIO SPECIALIST, AUDIO SPECIALIST-C Primary Care Provider Active Start: June 08, 2024 Dr. Huan Lomas MD Emergency Provider Active Sta rt: June 08, 2024 Dr. Jorje Hood DO Admit Provider Active Start: June 08, 2024 Dr. Jorje Hood DO Other Provider Active Start: June 08, 2024 Dr. Juan Esteves MD Attending Provider Active Start: June 08, 2024 Dr. Juan Esteves MD Other Provider Active Sta rt: June 08, 2024 Team Status: Inactive Member Role Status Dates Rosaura Suárez AUDIO SPECIALIST, AUDIO SPECIALIST-C Referring Provider Active Start: August 03, 2024 End: August 03, 2024 INDIRA Cox Attending Provider Active Start: August 03, 2024 End: August 03, 2024 Team Status: Inactive Member Role Status Dates Dr. Teodoro Real DO Attending Provider Active Start: September 27, 2024 End: September 27, 2024 Dr. Viktoriya Manzo MD Primary Care Provider Active Start: September 27, 2024 End: September 27, 2024 Dr. Viktoriya Manzo MD Referring Provider Active Start: September 27, 2024 End: September 27, 2024 Team Status: Active Member Role Status Dates Dr. Teodoro Real DO Attending Provider Active Start: September 27, 2024 Dr. Teodoro Real DO Other Provider Active St art: September 27, 2024 Dr. Viktoriya Manzo MD Primary Care Provider Active Start: September 27, 2024 Dr. Viktoriya Manzo MD Referring Provider Active Start: September 27, 2024 Team Status: Inactive Member Role Status Dates Dr. Juvenal Thompson MD Attending Provider Active Start: October 17, 2024 End: October 17, 2024 Dr. Viktoriya Manzo MD Primary Care Provider Active Start: October 17, 2024 End: October 17, 2024 Dr. Viktoriya Manzo MD Referring Provider Active Start: October 17, 2024 End: October 17, 2024 Team Status: Inactive Member Role Status Dates Dr. Viktoriya Manzo MD Primary Care Provider Active Start: November 02, 2024 End: November 02, 2024 Dr. Juvenal Thompson MD Attending Provider Active Start: November 02, 2024 End: November 02, 2024 Dr. Juvenal Thompson MD Referring Provider Active Start: November 02, 2024 End: November 02, 2024 Team Status: Active Member Role Status Dates Dr. Viktoriya Manzo MD Primary Care Provider Active Start: November 02, 2024 Dr. Herrera Goodrich MD Attending Provider Active S tart: November 02, 2024 Level Vial Grinder Relationship Specialty Start Date End Date Viktoriya Manzo MD [address] [place] [address] PCP - General Internal Medicine 07/06/24 Angélica Doan DO [address] [place], [place] [address] Peripheral Vascular 01/05/21 Rolly Smith MD [address] [place] [address] Cardiology 01/05/21 Erin Robledo MD [address] [place] [address] Vascular Surgery 01/26/21 Diana Solares APRN.YARD CRANE OPERATOR [address] [place] [place] [address] Air Crew Supervisor Internal Medicine 09/28/24 Level Vial Grinder Relationship Specialty Start Date End Date Viktoriya Manzo MD [address] [place] [address] PCP - General Internal Medicine 07/06/24 Angélica Doan DO [address] [place] [address] Peripheral Vascular 01/05/21 Rolly Smith MD [address] [place] [address] Cardiology 01/05/21 Erin Robledo MD [address] [place] [address] Vascular Surgery 01/26/21 Diana Solares APRN.YARD CRANE OPERATOR [address] [place] [address] Air Crew Supervisor Internal Medicine 09/28/24 Level Vial Grinder Relationship Specialty Start Date End Date Viktoriya Manzo MD [address] [place] [address] PCP - General Internal Medicine 07/06/24 Angélica Doan DO [address] [place] [address] Peripheral Vascular 01/05/21 Rolly Smith MD [address] [place] [address] Cardiology 01/05/21 Erin Robledo MD [address] [place] [address] Vascular Surgery 01/26/21 Diana Solares CENTRAL SUPPLY TECH.YARD CRANE OPERATOR [address] [facility] [place] [address] Air Crew Supervisor Internal Medicine 09/28/24 Level Vial Grinder Relationship Specialty Start Date End Date Viktoriya Manzo MD [address] [facility] [place] [place] [address] PCP - General Internal Medicine 07/06/24 Angélica Doan DO [address] [facility] [place] [address] Peripheral Vascular 01/05/21 Rolly Smith MD [address] [facility] [address] [place] [address] Cardiology 01/05/21 Erin Robledo MD [address] [facility] [address] [place] [address] Vascular Surgery 01/26/21 Maddison Renteria CENTRAL SUPPLY TECH.PRODUCE ASSISTANT [address] [facility] [place] [place] [address] Air Crew Supervisor Internal Medicine 06/25/24 10/07/24 Rosaura Suárez CENTRAL SUPPLY TECH.YARD CRANE OPERATOR [address] [place] [address] Air Crew Supervisor Internal Medicine 06/25/24 10/07/24 Diana Solares APRN.YARD CRANE OPERATOR [address] [facility] [place] [address] Air Crew Supervisor Internal Medicine 09/28/24 Team Status: Active Member Role Status Dates Dr. Viktoriya Manzo MD Primary Care Provider Active Start: November 02, 2024 Dr. Herrera Goodrich MD Attending Provider Active S tart: November 02, 2024 Dr. Juvenal Thompson MD Referring Provider Active Start: November 02, 2024 Team Status: Inactive Member Role Status Dates Dr. Viktoriya Manzo MD Primary Care Provider Active Start: November 28, 2024 End: November 28, 2024 Dr. Jay De Luna DO Emergency Provider Active Start: November 28, 2024 End: November 28, 2024 Level Vial Grinder Relationship Specialty Start Date End Date Viktoriya Manzo MD [address] [facility] [place] [place] [address] PCP - General Internal Medicine 07/06/24 Angélica Doan DO [address] [place] [address] Peripheral Vascular 01/05/21 Rolly Smith MD [address] [place] [address] Cardiology 01/05/21 Erin Robledo MD [address] [place] [address] Vascular Surgery 01/26/21 Diana Solares APRN.YARD CRANE OPERATOR [address] [facility] [address] Air Crew Supervisor Internal Medicine 09/28/24 Level Vial Grinder Relationship Specialty Start Date End Date Viktoriya Manzo MD [address] [place] [address] PCP - General Internal Medicine 07/06/24 Angélica Doan DO [address] [place] [address] Peripheral Vascular 01/05/21 Rolly Smith MD [address] [place] [address] Cardiology 01/05/21 Erin Robledo MD [address] [place] [address] Vascular Surgery 01/26/21 Diana Solares APRN.YARD CRANE OPERATOR [address] [place] [address] Air Crew Supervisor Internal Medicine 09/28/24 Level Vial Grinder Relationship Specialty Start Date End Date Viktoriya Manzo MD [address] [place] [address] PCP - General Internal Medicine 07/06/24 Angélica Doan DO [address] [place] [address] Peripheral Vascular 01/05/21 Rolly Smith MD [address] [place] [address] Cardiology 01/05/21 Erin Robledo MD [address] [place] [address] Vascular Surgery 01/26/21 Diana Solares APRN.YARD CRANE OPERATOR [address] [place] [address] Air Crew Supervisor Internal Medicine 09/28/24 Team Status: Inactive Member Role Status Dates Dr. Viktoriya Manzo MD Primary Care Provider Active Start: November 28, 2024 End: November 28, 2024 Dr. Jay De Luna DO Attending Provider Active Start: November 28, 2024 End: November 28, 2024 Dr. Jay De Luna DO Emergency Provider Active Start: November 28, 2024 End: November 28, 2024 Team Status: Inactive Member Role Status Dates Dr. Viktoriya Manzo MD Primary Care Provider Active Start: December 05, 2024 End: December 05, 2024 INDIRA Salgado Attending Provider Active S tart: December 05, 2024 End: December 05, 2024 Tona Kim PA Referring Provider Active S tart: December 05, 2024 End: December 05, 2024 Team Status: Active Member Role Status Dates Dr. Viktoriya Manzo MD Primary Care Provider Active Start: December 05, 2024 Tona Kim PA Referring Provider Active S tart: December 05, 2024 Tona Kim PA Other Provider Active Start : December 05, 2024 Dr. Lisa Zapien MD Attending Provider Active S tart: December 05, 2024 Level Vial Grinder Relationship Specialty Start Date End Date Viktoriya Manzo MD [address] [place] [address] PCP - General Internal Medicine 07/06/24 Angélica Doan DO [address] [place], [place] [address] Peripheral Vascular 01/05/21 Rolly Smith MD [address] [place] [address] Cardiology 01/05/21 Erin Robledo MD [address] [place] [address] Vascular Surgery 01/26/21 Diana Solares APRN.YARD CRANE OPERATOR [address] [facility] [place] [address] Air Crew Supervisor Internal Medicine 09/28/24 Team Status: Inactive Member Role Status Dates Dr. Viktoriya Manzo MD Primary Care Provider Active Start: December 17, 2024 End: December 17, 2024 Dr. Tobias Garcia DO Emergency Provider Active Start: December 17, 2024 End: December 17, 2024 Team Status: Inactive Member Role Status Dates Dr. Viktoriya Manzo MD Primary Care Provider Active Start: December 18, 2024 End: December 18, 2024 Dr. Viktoriya Manzo MD Referring Provider Active Start: December 18, 2024 End: December 18, 2024 INDIRA Cox Attending Provider Active Start: December 18, 2024 End: December 18, 2024 Level Vial Grinder Relationship Specialty Start Date End Date Viktoriya Manzo MD [address] [facility] [place] [place] [address] PCP - General Internal Medicine 07/06/24 Angélica Doan DO [address] [facility] [place] [address] Peripheral Vascular 01/05/21 Rolly Smith MD [address] [place] [address] Cardiology 01/05/21 Erin Robledo MD [address] [place], [place] [address] Vascular Surgery 01/26/21 Diana Solares APRN.YARD CRANE OPERATOR [address] [facility], [place] [address] [facility] Internal Medicine 09/28/24 Team Status: Inactive Member Role Status Dates Dr. Viktoriya Manzo MD Primary Care Provider Active Start: December 17, 2024 End: December 17, 2024 Dr. Tobias Garcia DO Attending Provider Active Start: December 17, 2024 End: December 17, 2024 Dr. Tobias Garcia DO Emergency Provider Active Start: December 17, 2024 End: December 17, 2024 Team Status: Inactive Member Role Status Dates Dr. Viktoriya Manzo MD Primary Care Provider Active Start: December 18, 2024 End: December 18, 2024 INDIRA Cox Attending Provider Active Start: December 18, 2024 End: December 18, 2024 INDIRA Cox Referring Provider Active Start: December 18, 2024 End: December 18, 2024 Team Status: Inactive Member Role Status Dates Dr. Viktoriya Manzo MD Primary Care Provider Active Start: January 01, 2025 End: January 01, 2025 Dr. Viktoriya Manzo MD Referring Provider Active Start: January 01, 2025 End: January 01, 2025 Dr. Teodoro Real DO Attending Provider Active Start: January 01, 2025 End: January 01, 2025 Team Status: Active Member Role Status Dates Dr. Viktoriya Manzo MD Primary Care Provider Active Start: January 01, 2025 Dr. Viktoriya Manzo MD Referring Provider Active Start: January 01, 2025 Dr. Teodoro Real DO Attending Provider Active Start: January 01, 2025 Dr. Teodoro Real DO Other Provider Active St art: January 01, 2025 Team Status: Inactive Member Role Status Dates Dr. Viktoriya Manzo MD Primary Care Provider Active Start: January 07, 2025 End: January 07, 2025 Rafal Herrera MD Emergency Provider Active Star t: January 07, 2025 End: January 07, 2025 Level Vial Grinder Relationship Specialty Start Date End Date Viktoriya Manzo MD [address] [place] [address] PCP - General Internal Medicine 07/06/24 Angélica Doan DO [address] [place] [address] Peripheral Vascular 01/05/21 Rolly Smith MD [address] [place] [address] Cardiology 01/05/21 Erin Robledo MD [address] [place] [address] Vascular Surgery 01/26/21 Diana Solares APRN.YARD CRANE OPERATOR [address] [place] [address] Air Crew Supervisor Internal Medicine 09/28/24 Level Vial Grinder Relationship Specialty Start Date End Date Viktoriya Manzo MD [address] [place] [address] PCP - General Internal Medicine 07/06/24 Angélica Doan DO [address] [place] [address] Peripheral Vascular 01/05/21 Rolly Smith MD [address] [place] [address] Cardiology 01/05/21 Erin Robledo MD [address] [place] [address] Vascular Surgery 01/26/21 Diana Solares APRN.YARD CRANE OPERATOR [address] [facility] [place] [address] Air Crew Supervisor Internal Medicine 09/28/24 Team Status: Active Member Role/Relationship Status Dates Dr. Viktoriya Manzo MD Primary Care Provider Active Team Status: Inactive Member Role/Relationship Status Dates Dr. Teodoro Real DO Attending Provider Active Start: September 27, 2024 End: September 27, 2024 Dr. Viktoriya Manzo MD Primary Care Provider Active Start: September 27, 2024 End: September 27, 2024 Dr. Viktoriya Manzo MD Referring Provider Active Start: September 27, 2024 End: September 27, 2024 Team Status: Active Member Role/Relationship Status Dates Dr. Teodoro Real DO Attending Provider Active Start: September 27, 2024 Dr. Teodoro Real DO Other Provider Active St art: September 27, 2024 Dr. Viktoriya Manzo MD Primary Care Provider Active Start: September 27, 2024 Dr. Viktoriya Manzo MD Referring Provider Active Start: September 27, 2024 Team Status: Inactive Member Role/Relationship Status Dates Dr. Juvenal Thompson MD Attending Provider Active Start: October 17, 2024 End: October 17, 2024 Dr. Viktoriya Manzo MD Primary Care Provider Active Start: October 17, 2024 End: October 17, 2024 Dr. Viktoriya Manzo MD Referring Provider Active Start: October 17, 2024 End: October 17, 2024 Team Status: Inactive Member Role/Relationship Status Dates Dr. Viktoriya Manzo MD Primary Care Provider Active Start: November 02, 2024 End: November 02, 2024 Dr. Juvenal Thompson MD Attending Provider Active Start: November 02, 2024 End: November 02, 2024 Dr. Juvenal Thompson MD Referring Provider Active Start: November 02, 2024 End: November 02, 2024 Team Status: Active Member Role/Relationship Status Dates Dr. Viktoriya Manzo MD Primary Care Provider Active Start: November 02, 2024 Dr. Herrera Goodrich MD Attending Provider Active S tart: November 02, 2024 Dr. Juvenal Thompson MD Referring Provider Active Start: November 02, 2024 Team Status: Inactive Member Role/Relationship Status Dates Dr. Viktoriya Manzo MD Primary Care Provider Active Start: November 28, 2024 End: November 28, 2024 Dr. Jay De Luna DO Attending Provider Active Start: November 28, 2024 End: November 28, 2024 Dr. Jay De Luna DO Emergency Provider Active Start: November 28, 2024 End: November 28, 2024 Team Status: Inactive Member Role/Relationship Status Dates Dr. Viktoriya Manzo MD Primary Care Provider Active Start: December 05, 2024 End: December 05, 2024 Tona Kim PA Attending Provider Active S tart: December 05, 2024 End: December 05, 2024 Tona Kim PA Referring Provider Active S tart: December 05, 2024 End: December 05, 2024 Team Status: Active Member Role/Relationship Status Dates Dr. Viktoriya Manzo MD Primary Care Provider Active Start: December 05, 2024 Tona Kim , PA Referring Provider Active S tart: December 05, 2024 Tona Kim PA Other Provider Active Start : December 05, 2024 Dr. Lisa Zapien MD Attending Provider Active S tart: December 05, 2024 Team Status: Inactive Member Role/Relationship Status Dates Dr. Viktoriya Manzo MD Primary Care Provider Active Start: December 17, 2024 End: December 17, 2024 Dr. Tobias Garcia DO Attending Provider Active Start: December 17, 2024 End: December 17, 2024 Dr. Tobias Garcia DO Emergency Provider Active Start: December 17, 2024 End: December 17, 2024 Team Status: Inactive Member Role/Relationship Status Dates Dr. Viktoriya Manzo MD Primary Care Provider Active Start: December 18, 2024 End: December 18, 2024 Dr. Viktoriya Manzo MD Referring Provider Active Start: December 18, 2024 End: December 18, 2024 INDIRA Cox Attending Provider Active Start: December 18, 2024 End: December 18, 2024 Team Status: Inactive Member Role/Relationship Status Dates Dr. Viktoriya Manzo MD Primary Care Provider Active Start: December 18, 2024 End: December 18, 2024 INDIRA Cox Attending Provider Active Start: December 18, 2024 End: December 18, 2024 INDIRA Cox Referring Provider Active Start: December 18, 2024 End: December 18, 2024 Team Status: Inactive Member Role/Relationship Status Dates Dr. Viktoriya Manzo MD Primary Care Provider Active Start: January 01, 2025 End: January 01, 2025 Dr. Viktoriya Manzo MD Referring Provider Active Start: January 01, 2025 End: January 01, 2025 Dr. Teodoro Real DO Attending Provider Active Start: January 01, 2025 End: January 01, 2025 Team Status: Active Member Role/Relationship Status Dates Dr. Viktoriya Manzo MD Primary Care Provider Active Start: January 01, 2025 Dr. Viktoriya Manzo MD Referring Provider Active Start: January 01, 2025 Dr. Teodoro Real DO Attending Provider Active Start: January 01, 2025 Dr. Teodoro Real DO Other Provider Active St art: January 01, 2025 Team Status: Inactive Member Role/Relationship Status Dates Dr. Viktoriya Manzo MD Primary Care Provider Active Start: January 07, 2025 End: January 07, 2025 Rafal Herrera MD Emergency Provider Active Star t: January 07, 2025 End: January 07, 2025 Team Status: Active Member Role/Relationship Status Dates Dr. Viktoriya Manzo MD Primary Care Provider Active Start: January 11, 2025 Dr. Guero Hernandez MD Emergency Provider Active Start: January 11, 2025 Dr. Noble Reynolds DO Admit Provider Active S tart: January 11, 2025 Dr. Noble Reynolds DO Attending Provider Active Start: January 11, 2025 Dr. Noble Reynolds DO Referring Provider Active Start: January 11, 2025 INFORMATION SOURCE (unrecogn ized section and content) DATE CREATED AUTHOR 04/22/2022 [facility] DATE CREATED AUTHOR AUTHOR'S ORGANIZ ATION 06/17/2024 [facility] DATE CREATED AUTHOR AUTHOR'S ORGANIZ ATION 01/08/2025 [facility] DATE CREATED AUTHOR AUTHOR'S ORGANIZ ATION 01/10/2025 [facility] Goals (unrecognized section and content) Goals may be documented in a n alternate sectionGoals may be documented in an alternate sectionGoals may be documented in an alternate sectionGoals may be documented in an alternate sectionGoals may be documented in an alternate section FOR RECORDS PERTAINING TO PATIENTS WHO ARE [...] BE BASED ON THE PRIMARY CLINICAL RECORDS. [facility] [facility]. provides no warranty or guarantee of the accuracy or completeness of information in this document.
[2025-01-12 09:10] LABS: Polychromasia 1+
--- NOTE | 2025-01-12 09:17 | PCM.PN.TICU ---
Objective Data Objective Data Vital Signs: Vital Signs Last response Temperature 36.7 C 01/12/25 00:00 Temperature Source Temporal 01/12/25 00:00 Pulse Rate 81 01/12/25 07:39 Respiratory Rate 22 H 01/12/25 07:39 Respiratory Effort Normal, Non-Labored 01/12/25 04:00 Respiratory Depth Normal 01/12/25 04:00 Respiratory Pattern Normal 01/12/25 07:39 Blood Pressure 132/42 H 01/12/25 06:00 Blood Pressure Mean 72 01/12/25 06:00 Blood Pressure Source Monitor 01/12/25 06:00 Blood Pressure Position Semi-Fowlers 01/12/25 06:00 Blood Pressure Location Left Arm 01/12/25 06:00 Pulse Ox 97 01/12/25 07:39 Oxygen Delivery Method Nasal Cannula 01/12/25 07:39 Oxygen Flow Rate (L/min) 2 01/12/25 07:39 I&O: I&O Last 24 Hours 01/11/25 01/11/25 01/12/25 11:59 23:59 11:59 Intake Total 1300 / 3785.32 2466.52 / 3785.32 1401.6 / 1401.6 Output Total 70 / 70 Balance 1300 / 3785.32 2466.52 / 3785.32 1331.6 / 1331.6 I&O: Total Stay 01/11/25 10:13 thru 01/12/25 06:45 Intake Total 5168.12 Output Total 70 Balance 5098.12 Current Meds Ordered / Administered: Current meds ordered / Administered Generic Name Dose Route Start Last Admin Trade Name Betty PRN Reason Stop Dose Admin Acetaminophen 1,000 mg 01/11/25 16:03 01/12/25 08:50 Acetaminophen 500 Mg Tablet PO 1,000 mg Q6H PRN Administration Pain Score 1-10 Albuterol/Ipratropium 3 ml 01/11/25 16:03 01/12/25 02:30 Ipratropium/Albuterol Sulfate 3 Ml Ampul.Neb INHALATION 3 ml Q6H.RT MUSA Administration Albuterol/Ipratropium 3 ml 01/11/25 21:45 01/12/25 07:36 Ipratropium/Albuterol Sulfate 3 Ml Ampul.Neb INHALATION 3 ml Q4H.RT MUSA Administration Atorvastatin Calcium 40 mg 01/11/25 22:00 01/11/25 21:31 Atorvastatin Calcium 40 Mg Tablet PO Not Given QHS MUSA Budesonide 0.5 mg 01/11/25 22:00 01/12/25 07:37 Budesonide Respules 0.5 Mg/2 Ml Ampul.Neb. INHALATION 0.5 mg BID MUSA Administration Cholecalciferol 125 mcg 01/12/25 10:00 Cholecalciferol (Vit D3) 125 Mcg Capsule (5,000 Units) PO DAILY MUSA Clopidogrel Bisulfate 75 mg 01/12/25 10:00 Clopidogrel Bisulfate 75 Mg Tablet PO DAILY MUSA Duloxetine HCl 60 mg 01/12/25 10:00 Duloxetine Hcl 60 Mg Capsule PO DAILY MUSA Sodium Chloride 1,000 mls @ 100 mls/hr 01/11/25 16:03 01/12/25 02:11 IV 100 mls/hr .Q10H MUSA Administration Piperacillin Sod/Tazobactam 50 mls @ 12.5 mls/hr 01/11/25 22:00 01/12/25 01:29 Sod 3.375 gm/ Sodium Chloride IV Infused Q12 MUSA Infusion Sodium Chloride 1,000 mls @ 15 mls/hr 01/11/25 16:30 01/11/25 16:28 IV 15 mls/hr .Q48H MUSA Administration Norepinephrine Bitartrate 8 mg 250 mls @ 9.375 mls/hr 01/11/25 19:15 01/12/25 06:00 / Sodium Chloride CONT INF 10 mcg/min .[id number] MUSA 18.8 mls/hr Titration Protocol 5 MCG/MIN Azithromycin 500 mg/ Sodium 255 mls @ 255 mls/hr 01/12/25 22:00 Chloride IV Q24H MUSA Morphine Sulfate 2 mg 01/11/25 21:26 01/12/25 06:31 Morphine 2 Mg/Ml Syringe IV 2 mg Q4H PRN PRN Administration Pain Score 6-10 Ondansetron HCl 4 mg 01/11/25 16:03 Ondansetron 4 Mg/2 Ml Vial IV Q8H PRN PRN NAUSEA/VOMITING Oxycodone HCl 5 mg 01/11/25 16:03 01/12/25 08:50 Oxycodone 5 Mg Tablet PO 5 mg Q6H PRN Administration Pain Score 1-10 Pantoprazole Sodium 40 mg 01/11/25 22:00 01/11/25 21:30 Pantoprazole Sodium 40 Mg Tablet PO 40 mg BID MUSA Administration Polysaccharide Iron Complex 150 mg 01/12/25 10:00 Iron Polysaccharide Complex 150 Mg Capsule PO DAILY MUSA Pramipexole Dihydrochloride 1.5 mg 01/11/25 22:00 01/11/25 21:30 Pramipexole Di-Hcl 0.5 Mg Tablet PO 1.5 mg QHS MUSA Administration Sodium Chloride 10 - 40 ml 01/11/25 16:11 01/12/25 06:31 0.9% Saline Lock 10 Ml Syringe IV 10 ml UD PRN Administration SALINE FLUSH Vancomycin HCl 125 mg 01/11/25 18:00 01/12/25 06:32 Vancomycin 125 Mg/5 Ml Susp Po.Syringe PO 125 mg Q6 MUSA Administration Lab / Micro Data Attestation: I reviewed the patient's lab results. 01/12/25 06:25 01/12/25 06:25 Labs: Laboratory Results - last 24 hr 01/11/25 11:05: WBC 2.7 L, RBC 2.93 L, Hgb 9.3 L, Hct 29.0 L, MCV 99.0, MCH 31.7, MCHC 32.1, RDW Std Deviation 52.8 H, RDW Coeff of Ha 14.5, Plt Count 143 L, MPV 10.9, Neut % (Auto) Not Reportable, Absolute Neuts (auto) 1.8 L, Absolute Lymphs (auto) 0.56 L, Total Counted 100, Neutrophils % (Manual) 42 L, Band Neutrophils % 24 H, Lymphocytes % (Manual) 21, Monocytes % (Manual) 5, Eosinophils % (Manual) 1, Basophils % (Manual) 1, Metamyelocytes % 5 H, Myelocytes % 1 H, Diff Path Review November, Platelet Estimate SLT DEC, Polychromasia 1+, Sodium 135, Potassium 4.1, Chloride 96 L, Carbon Dioxide 21.3, Anion Gap 18 H, BUN 74 H, Creatinine 3.03 H, Estim Creat Clear Calc 11.66 L, Est GFR (MDRD) Non-Af 14 L, BUN/Creatinine Ratio 24.3 H, Glucose 88, Lactic Acid 3.2 H*, Calcium 6.6 L, Total Bilirubin 0.49, AST 60 H, ALT 17, Alkaline Phosphatase 55, Troponin T High Sens 64 H*, Total Protein 5.4 L, Albumin 2.6 L, Globulin 2.8, Albumin/Globulin Ratio 0.9, Blood Type A NEGATIVE, Antibody Screen NEGATIVE 01/11/25 13:15: Troponin T Hi Sens 2 Hr 45 H 01/11/25 14:15: Urine Color Yellow, Urine Clarity Cloudy, Urine pH 5.0, Ur Specific [place] 1.015, Urine Protein 30 H, Urine Glucose (UA) Normal, Urine Ketones Negative, Urine Occult Blood 150 H, Urine Nitrite Negative, Urine Bilirubin Negative, Urine Urobilinogen Normal, Ur Leukocyte Esterase 25 H, Urine RBC 0-5 SEEN, Urine WBC 5-10 SEEN, Ur Squamous Epith Cells 5-10 SEEN, Urine Bacteria 3+, Urine Mucus 0 SEEN 01/11/25 16:15: POC Glucose 82 01/11/25 20:47: WBC 5.0, RBC 2.92 L, Hgb 9.3 L, Hct 29.0 L, MCV 99.3 H, MCH 31.8, MCHC 32.1, RDW Std Deviation 52.4 H, RDW Coeff of Ha 14.4, Plt Count 154, MPV 11.2, Neut % (Auto) Not Reportable, Absolute Neuts (auto) 4.0, Absolute Lymphs (auto) 0.45 L, Total Counted 100, Neutrophils % (Manual) 50, Band Neutrophils % 29 H, Lymphocytes % (Manual) 9 L, Monocytes % (Manual) 4, Metamyelocytes % 5 H, Myelocytes % 3 H, Diff Path Review November01/11/25 22:22: Lactic Acid 2.6 H*, Troponin T High Sens 338 H* D 01/12/25 06:25: WBC 9.2, RBC 3.06 L, Hgb 9.7 L, Hct 30.2 L, MCV 98.7, MCH 31.7, MCHC 32.1, RDW Std Deviation 52.8 H, RDW Coeff of Ha 14.5, Plt Count 159, MPV 11.0, Immature Gran % (Auto) 1.700 H, Neut % (Auto) 89.2 H, Lymph % (Auto) 5.9 L, [place] % (Auto) 2.8, Eos % (Auto) 0.3, Baso % (Auto) 0.1, Absolute Neuts (auto) 8.2 H, Absolute Lymphs (auto) 0.54 L, Nucleated RBC % 0.3, Platelet Estimate A, Polychromasia 1+, Sodium 141, Potassium 3.6, Chloride 105, Carbon Dioxide 20.7 L, Anion Gap 15, BUN 55 H, Creatinine 1.88 H, Estim Creat Clear Calc 18.83 L, Est GFR (MDRD) Non-Af 26 L, BUN/Creatinine Ratio 29.1 H, Glucose 104 H, Lactic Acid 1.3, Calcium 6.4 L* Micro: Microbiology 01/11/25 22:04 Nasal Secretion MRSA (PCR) - Final 01/11/25 23:00 Mucosa - Nasopharyngeal SARS-CoV-2, Influenza & RSV (PCR) - Final 01/11/25 11:05 Stool Stool Occult Blood (ROYAL) - Final Occult Blood Positive Rhythm Strip Rhythm Strip: Sinus Rhythm Rate: 90 Ectopy: None Imaging Radiology Impression Chest X-Ray 01/11/25 13:20 IMPRESSION: Subtle airspace disease is seen in the right lung base, with differential diagnosis including Atelectasis and Pneumonitis. No pleural effusion or pneumothorax is seen. The cardiomediastinal silhouette is stable, without evidence of cardiomegaly. A tortuous aorta is again noted. No interval osseous change is identified. Reading Location: [facility]1 Chest/Abdomen/Pelvis CT 01/11/25 21:32 IMPRESSION: Diffuse colitis favoring infectious colitis. Inflammatory bowel disease or ischemic colitis not completely excluded. Advise correlation. Small ascites. Bilateral airspace disease favoring atelectasis. Reading Location: [facility]2 Reviewed personally, CT chest, suggestive of possible aspiration vs atelectasis in bilateral posterior lobes Assessment and Plan . Assessment and plan: ICU Problems: Septic shock, undifferentiated source Hypovolemic shock Chronic C Difficile symptoms vs abx related diarrhea Hypoxia Aspiration/PNA Plan: Repeat C Diff Ag testing and if present, may need ID consultation and fidaxomicin fecal leukocyte testing Broad spectrum abx to cover GNR for aspiration in posterior R and L lungs of CT procalcitonin or CRP on d1 and 3 of abx and if negative, can de-escalate abx oral midodrine if need be to titrate off NE, which is through peripheral katarzyna Tobias Sanchez MD [facility] Access TeleCare Critical Care Time: 55 min The entirety of this encounter was done via Telemedicine Physical Exam Const alert, oriented x3 and no apparent distress General Appearance: cooperative, well developed and ill appearing HEENT normocephalic, head/scalp atraumatic and moist oral mucous membranes Mouth: oral and palatal mucosa normal Eyes PERRL, EOMs intact bilaterally, conjunctivae normal and no scleral icterus Neck full ROM, supple and no JVD Resp normal respiratory effort and no use of accessory muscles Effort and Inspection: able to speak in complete sentences and actively coughing Auscultation: clear to auscultation bilaterally Cardio regular rate and regular rhythm GI normal to inspection, nondistended, normoactive bowel sounds, soft to palpation and non-tender Back/Spine no CVA tenderness Extremity no clubbing, cyanosis or edema Skin no rashes or lesions noted Neuro oriented x3 and CN's II-XII intact bilaterally Psych cooperative and affect normal Subjective Subjective CC: left arm pain/wrist pain in casted fracture 04/26 HPI Review: ATC consulted to see patient o/n 2/2 hypotension and admission to ICU requiring IV continuous pressors. Currently on NE alone at 5mcg/min, with SBP ~122-139torr. Patient just received PO acetaminophen and oxycodone for pain ~3 hr prior to being seen. Also just received PRN morphine. SpO2 92-96% on 2LNC O2. Review also indicates she has had C difficile infection 12/18/24 and has had 3 large liquid stools daily. PO intake has not been consistent. 01/12 - on NS ~ 100cc/hr, NE at 5mcg/min; Making good UOP ~500cc in the collection bag after [place] placed ~shift change/7am. ROS: 12 or more systems reviewed and is (+) for pain in the L wrist fracture. Denies abdominal cramping, fever, chills and rigors. NO n/v
[2025-01-12] MEDS: Piperacil/Tazobactam 3.375 GM in 0.9% Normal Saline (50mL MB+) 50 ML IV ×2 (10:09→21:38)
[2025-01-12] MEDS: Norepinephrine 8 MG in 0.9% Normal Saline (250mL Bag) 242 ML 9.4 MG CONT INF (10:16)
--- NOTE | 2025-01-12 11:30 | CASEMGMT ---
Addendum entered by Charlene Cabrera 01/12/25 14:37: Social Work Referral made to TCU. SW to follow up Tuesday. RON Mojica Original Note: Social Work SW met w/pt in room in regard to prior level of function and anticipated discharge plan. PCP: Dr. Lamb Specialists: Dr. Delvalle--pulmonology, Dr. Cano--GI, Dr. Woodard--nephology, Dr. Thompson--cardiology Insurance/Prescription coverage: [facility] Medicare Pharmacy: [facility] by mail, if a short term Med [facility] Retail Pharm[facility] [place]: Son, daughter Living arrangements: Pt lives alone in a two story home, w/a basement, ramped entry. Pt stays on the first floor. Prior level of function: Pt was independent with ADLs including cooking, caring for self, organizing medications. Pt can drive but her son has been doing more of the driving recently. Pt does have a cleaning person one time per month. Pt normally uses a cane but recently has been using a walker LW/POA: Pt states her son and daughter are her POA for healthcare. DME: Pt has a walker, cane, built in seat in the shower, railings in the bathroom. Pt has home O2 through [employer], 2LPM during the day, 4LPM at night. HHC: Pt has had [facility] HH in the past SNF: Pt has been to TCU in the past. Plan: SNF. SW spoke w/pt about options at discharge. She is aware her daughter thinks she should go somewhere for rehab, and she is reluctantly in agreement. She states has been to TCU in the past and would want to go there again. SW provided to pt a list from [facility] of shelter facilities in network w/her insurance, in pt's preferred geographic area and complete w/quality and resource use data. SW explained to pt will make TCU referral, if they do not have a bed SW will follow up Tuesday for additional choices. Pt states understanding. SW will continue to follow. RON Mojica
[2025-01-12] MEDS: Cholecalciferol (Vit D3) 125 MCG CAPSULE (5,000 UNITS) PO (14:38)
[2025-01-12] MEDS: TITRATION PARAMETER CHANGE 1 EACH IV (15:37)
[2025-01-12] MEDS: Azithromycin 500 MG in 0.9% Normal Saline (250mL Bag) 250 ML 255 MG IV (21:38)
[2025-01-13] VITALS (46 sets, daily range): BP systolic 80–147; BP diastolic 43–116; PULSE 71–98; RESP 12–28; TEMP 36.6–37.2; O2SAT 89–99; BMI 27.1
[2025-01-13] MEDS: Vancomycin 125 MG/5 ML Susp PO.SYRINGE PO ×5 (00:16→23:07)
[2025-01-13] MEDS: 0.9% Normal Saline (1000mL) 1,000 ML 100 ML IV ×2 (07:41→16:40)
[2025-01-13] MEDS: Budesonide Respules 0.5 MG/2 ML AMPUL.NEB. INHALATION ×2 (07:47→19:49)
--- NOTE | 2025-01-13 08:50 | RAD_ITS ---
PROCEDURE: WRIST MIN 3 VIEWS 01/13/2025 REASON FOR EXAM: RECENT FRACTURE TECHNIQUE: WRIST MIN 3 VIEWS COMPARISON: Left wrist radiographs 01/07/2025. FINDINGS: Visualization is significantly limited by overlying casting material. Bones: Acute/subacute left distal radial fracture with mild volar angulation, slightly improved since prior examination. Joints: Normal alignment. There are degenerative changes throughout the wrist. Soft tissues: Slight improvement in the soft tissue swelling. RAD/Wrist min 3 Views IMPRESSION: Interval casting material placement which decreases visualization. Acute/subac [place] left distal radial fracture as described. Reading Location: [id number]
--- NOTE | 2025-01-13 10:30 | PN.CC_ITS ---
Objective Data Objective Data Vital Signs: Vital Signs Last response 3 Temperature 36.8 C 01/13/25 09:00 Temperature Source Core 01/13/25 09:00 Pulse Rate 95 01/13/25 09:15 Pulse Strength Normal (2+) 01/12/25 10:00 Respiratory Rate 22 H 01/13/25 09:00 Respiratory Effort Normal, Non-Labored 01/12/25 16:41 Respiratory Depth Normal 01/12/25 16:41 Respiratory Pattern Normal 01/13/25 07:48 Blood Pressure 96/68 01/13/25 09:15 Blood Pressure Mean 77 01/13/25 09:15 Blood Pressure Source Monitor 01/13/25 09:15 Blood Pressure Position Semi-Fowlers 01/13/25 09:15 Blood Pressure Location Right Forearm 01/13/25 09:15 Pulse Ox 94 01/13/25 09:00 Oxygen Delivery Method Nasal Cannula 01/13/25 09:00 Oxygen Flow Rate (L/min) 2 01/13/25 09:00 I&O: I&O Last 24 Hours 3 01/12/25 01/12/25 01/13/25 11:59 23:59 11:59 Intake Total 2633.87 / 4219.45 1585.58 / 4219.45 2043.27 / 2043.27 Output Total 620 / 1320 600 / 1320 350 / 350 Balance 2013.87 / 2899.45 985.58 / 2899.45 1693.27 / 1693.27 I&O: Total Stay 3 01/11/25 10:13 thru 01/13/25 09:15 Intake Total 87099.24 Output Total 1570 Balance 8459.24 Current Meds Ordered / Administered: Current meds ordered / Administered 3 Generic Name Dose Route Start Last Admin Trade Name Freq PRN Reason Stop Dose Admin Acetaminophen 1,000 mg 01/11/25 16:03 01/13/25 03:51 Acetaminophen 500 Mg Tablet PO 1,000 mg Q6H PRN Administration Pain Score 1-10 Albuterol/Ipratropium 3 ml 01/11/25 21:45 01/13/25 07:47 Ipratropium/Albuterol Sulfate 3 Ml Ampul.Neb INHALATION 3 ml Q4H.RT MUSA Administration Atorvastatin Calcium 40 mg 01/11/25 22:00 01/12/25 21:49 Atorvastatin Calcium 40 Mg Tablet PO Not Given QHS MUSA Budesonide 0.5 mg 01/11/25 22:00 01/13/25 07:47 Budesonide Respules 0.5 Mg/2 Ml Ampul.Neb. INHALATION 0.5 mg BID MUSA Administration Cholecalciferol 125 mcg 01/12/25 10:00 01/12/25 14:38 Cholecalciferol (Vit D3) 125 Mcg Capsule (5,000 Units) PO 125 mcg DAILY MUSA Administration Clopidogrel Bisulfate 75 mg 01/12/25 10:00 01/12/25 10:08 Clopidogrel Bisulfate 75 Mg Tablet PO 75 mg DAILY MUSA Administration Duloxetine HCl 60 mg 01/12/25 10:00 01/12/25 10:08 Duloxetine Hcl 60 Mg Capsule PO 60 mg DAILY MUSA Administration Sodium Chloride 1,000 mls @ 100 mls/hr 01/11/25 16:03 01/13/25 07:41 IV 100 mls/hr .Q10H MUSA Administration Piperacillin Sod/Tazobactam 50 mls @ 12.5 mls/hr 01/11/25 22:00 01/13/25 02:00 Sod 3.375 gm/ Sodium Chloride IV Infused Q12 MUSA Infusion Sodium Chloride 1,000 mls @ 15 mls/hr 01/11/25 16:30 01/12/25 16:50 IV 0 mls/hr .Q48H MUSA Infusion Norepinephrine Bitartrate 8 mg 250 mls @ 9.375 mls/hr 01/11/25 19:15 01/13/25 09:15 / Sodium Chloride CONT INF 4 mcg/min .[id number] MUSA 7.5 mls/hr Titration Protocol 5 MCG/MIN Azithromycin 500 mg/ Sodium 255 mls @ 255 mls/hr 01/12/25 22:00 01/13/25 00:32 Chloride IV Infused Q24H MUSA Infusion Midodrine 10 mg 01/13/25 10:00 Midodrine Hcl 5 Mg Tablet PO TIDCM MUSA Morphine Sulfate 2 mg 01/11/25 21:26 01/12/25 16:55 Morphine 2 Mg/Ml Syringe IV 2 mg Q4H PRN PRN Administration Pain Score 6-10 Ondansetron HCl 4 mg 01/11/25 16:03 Ondansetron 4 Mg/2 Ml Vial IV Q8H PRN PRN NAUSEA/VOMITING Oxycodone HCl 5 - 10 mg 01/12/25 14:47 01/13/25 03:50 Oxycodone 5 Mg Tablet PO 10 mg Q6H PRN Administration Pain Score 1-10 Pantoprazole Sodium 40 mg 01/11/25 22:00 01/12/25 21:49 Pantoprazole Sodium 40 Mg Tablet PO 40 mg BID MUSA Administration Polysaccharide Iron Complex 150 mg 01/12/25 10:00 01/12/25 10:08 Iron Polysaccharide Complex 150 Mg Capsule PO 150 mg DAILY MUSA Administration Pramipexole Dihydrochloride 1.5 mg 01/11/25 22:00 01/12/25 21:49 Pramipexole Di-Hcl 0.5 Mg Tablet PO 1.5 mg QHS MUSA Administration Sodium Chloride 10 - 40 ml 01/11/25 16:11 01/12/25 06:31 0.9% Saline Lock 10 Ml Syringe IV 10 ml UD PRN Administration SALINE FLUSH Vancomycin HCl 125 mg 01/11/25 18:00 01/13/25 05:36 Vancomycin 125 Mg/5 Ml Susp Po.Syringe PO 125 mg Q6 MUSA Administration Lab / Micro Data Attestation: I reviewed the patient's lab results. 01/12/25 06:25 01/12/25 06:25 Labs: Laboratory Results - last 24 hr 01/11/25 11:05: WBC 2.7 L, RBC 2.93 L, Hgb 9.3 L, Hct 29.0 L, MCV 99.0, MCH 31.7, MCHC 32.1, RDW Std Deviation 52.8 H, RDW Coeff of Ha 14.5, Plt Count 143 L, MPV 10.9, Neut % (Auto) Not Reportable, Absolute Neuts (auto) 1.8 L, Absolute Lymphs (auto) 0.56 L, Total Counted 100, Neutrophils % (Manual) 42 L, Band Neutrophils % 24 H, Lymphocytes % (Manual) 21, Monocytes % (Manual) 5, Eosinophils % (Manual) 1, Basophils % (Manual) 1, Metamyelocytes % 5 H, M yelocytes % 1 H, Diff Path Review November, Platelet Estimate SLT DEC, Polychromasia 1+, Sodium 135, Potassium 4.1, Chloride 96 L, Carbon Dioxide 21.3, Anion Gap 18 H, BUN 74 H, Creatinine 3.03 H, Estim Creat Clear Calc 11.66 L, Est GFR (MDRD) Non-Af 14 L, BUN/Creatinine Ratio 24.3 H, Glucose 88, Lactic Acid 3.2 H*, Calcium 6.6 L, Total Bilirubin 0.49, AST 60 H, ALT 17, Alkaline Phosphatase 55, Troponin T High Sens 64 H*, Total Protein 5.4 L, Albumin 2.6 L, Globulin 2.8, Albumin/Globulin Ratio 0.9, Blood Type A NEGATIVE, Antibody Screen NEGATIVE 01/11/25 13:15: Troponin T Hi Sens 2 Hr 45 H 01/11/25 14:15: Urine Color Yellow, Urine Clarity Cloudy, Urine pH 5.0, Ur Specific [place] 1.015, Urine Protein 30 H, Urine Glucose (UA) Normal, Urine Ketones Negative, Urine Occult Blood 150 H, Urine Nitrite Negative, Urine Bilirubin Negative, Urine Urobilinogen Normal, Ur Leukocyte Esterase 25 H, Urine RBC 0-5 SEEN, Urine WBC 5-10 SEEN, Ur Squamous Epith Cells 5-10 SEEN, Urine Bacteria 3+, Urine Mucus 0 SEEN 01/11/25 16:15: POC Glucose 82 01/11/25 20:47: WBC 5.0, RBC 2.92 L, Hgb 9.3 L, Hct 29.0 L, MCV 99.3 H, MCH 31.8, MCHC 32.1, RDW Std Deviation 52.4 H, RDW Coeff of Ha 14.4, Plt Count 154, MPV 11.2, Neut % (Auto) Not Reportable, Absolute Neuts (auto) 4.0, Absolute Lymphs (auto) 0.45 L, Total Counted 100, Neutrophils % (Manual) 50, Band Neutrophils % 29 H, Lymphocytes % (Manual) 9 L, Monocytes % (Manual) 4, M etamyelocytes % 5 H, Myelocytes % 3 H, Diff Path Review November01/11/25 22:22: Lactic Acid 2.6 H*, Troponin T High Sens 338 H* D 01/12/25 06:25: WBC 9.2, RBC 3.06 L, Hgb 9.7 L, Hct 30.2 L, MCV 98.7, MCH 31.7, MCHC 32.1, RDW Std Deviation 52.8 H, RDW Coeff of Ha 14.5, Plt Count 159, MPV 11.0, Immature Gran % (Auto) 1.700 H, Neut % (Auto) 89.2 H, Lymph % (Auto) 5.9 L , [place] % (Auto) 2.8, Eos % (Auto) 0.3, Baso % (Auto) 0.1, Absolute Neuts (auto) 8.2 H, Absolute Lymphs (auto) 0.54 L, Nucleated RBC % 0.3, Platelet Estimate A, Polychromasia 1+, Sodium 141, Potassium 3.6, Chloride 105, Carbon Dioxide 20.7 L , Anion Gap 15, BUN 55 H, Creatinine 1.88 H, Estim Creat Clear Calc 18.83 L, Est GFR (MDRD) Non-Af 26 L, BUN/Creatinine Ratio 29.1 H, Glucose 104 H, Lactic Acid 1.3, Calcium 6.4 L* Micro: Microbiology 01/11/25 22:04 Nasal Secretion MRSA (PCR) - Final 01/11/25 23:00 Mucosa - Nasopharyngeal SARS-CoV-2, Influenza & RSV (PCR) - Final 01/11/25 11:05 Stool Stool Occult Blood (ROYAL) - Final Occult Blood Positive Rhythm Strip Rhythm Strip: Sinus Rhythm Rate: 90 Ectopy: None Imaging Radiology Impression Echocardiogram 01/11/25 22:26 Interpretation Summary Mild concentric left ventricular hypertrophy. Stage 1 diastolic dysfunction. Ordering Physician: Sam Trotter Referring Physician: Chuck Reynolds Performed By: Antoine Fonseca RCS Wrist X-Ray 01/13/25 08:50 IMPRESSION: Interval casting material placement which decreases visualization. Acute/subacute left distal radial fracture as described. Reading Location: [id number] Assessment and Plan . Assessment and plan: ICU Problems: Septic shock, undifferentiated source Hypovolemic shock Chronic C Difficile symptoms vs abx related diarrhea Hypoxia Aspiration/PNA Plan: Repeat C Diff Ag testing and if present, may need ID consultation and fidaxomicin fecal leukocyte testing Broad spectrum abx to cover GNR for aspiration in posterior R and L lungs of CT procalcitonin or CRP on d1 and 3 of abx and if negative, can de-escalate abx start PO midodrine 10mg q8h Tobias Sanchez MD [facility] Access TeleCare Critical Care Time: 55 min The entirety of this encounter was done via Telemedicine Physical Exam Const alert, oriented x3 and no apparent distress General Appearance: cooperative, well developed and ill appearing HEENT normocephalic, head/scalp atraumatic and moist oral mucous membranes Mouth: oral and palatal mucosa normal Eyes PERRL, EOMs intact bilaterally, conjunctivae normal and no scleral icterus Neck full ROM, supple and no JVD Resp normal respiratory effort and no use of accessory muscles Effort and Inspection: able to speak in complete sentences and actively coughing Auscultation: clear to auscultation bilaterally Cardio regular rate and regular rhythm GI normal to inspection, nondistended, normoactive bowel sounds, soft to palpation and non-tender Back/Spine no CVA tenderness Extremity no clubbing, cyanosis or edema Skin no rashes or lesions noted Neuro oriented x3 and CN's II-XII intact bilaterally Psych cooperative and affect normal Subjective Subjective CC: left arm pain/wrist pain in casted fracture 04/26 HPI Review: ATC consulted to see patient o/n 2/2 hypotension and admission to ICU requiring IV continuous pressors. Currently on NE alone at 5mcg/min, with SBP ~122-139torr. Patient just received PO acetaminophen and oxycodone for pain ~3 hr prior to being seen. Also just received PRN morphine. SpO2 92-96% on 2LNC O2. Review also indicates she has had C difficile infection 12/18/24 and has had 3 large liquid stools daily. PO intake has not been consistent. 01/12 - on NS ~ 100cc/hr, NE at 5mcg/min; Making good UOP ~500cc in the collection bag after [place] placed ~shift change/7am. 01/13 - 4mcg/min NE drip, good UOP. Still feels light headed when posture changed. Otherwise no falling. Pain alan. MAP low ~65torr this AM. ROS: 12 or more systems reviewed and is (+) for pain in the L wrist fracture. Denies abdominal cramping, fever, chills and rigors. NO n/v
--- NOTE | 2025-01-13 11:05 | CONS.ORTHO ---
HPI Consult Data Date of Consult: 01/13/25 HPI Narrative HPI Narrative: DICK ARTIS, is a 89 F who presents with left wrist fracture in a short arm cast. She sustained a fracture on January 07, 2025. She was seen and treated in the office. Dr. Tarango was overseeing her care. She was placed in a [place] lined short arm cast. She did have some pain and swelling. Bruising proximal to the cast. She was seen in the office on , January 10 with some pain and reported paresthesias that were reportedly present since the injury. Patient was evaluated and released. Due to illness she was admitted to the hospital on January 11 for possible sepsis, pneumonia possible C. difficile. Orthopedics was consulted today January 13, 2025 due to patient still having some intermittent wrist pain numbness and tingling. Patient reportedly has been recently evaluated for right carpal tunnel syndrome and had a nerve test consistent with that. Seemingly they did not test her left hand. [facility] Medical History GI (gastrointestinal bleed) Rash Back pain Cancer Thyroid disease Ambulates with cane History of renal disease TIA (transient ischemic attack) Acute diverticulitis Wears glasses Wears dentures Arthritis Low iron Anemia High cholesterol Migraine headache Restless legs Difficulty chewing History of diverticulitis Heartburn Gastric reflux Former smoker On home oxygen therapy Shortness of breath on exertion Chronic cough History of edema History of echocardiogram History of stress test Cardiology follow-up encounter Hypertension Chronic hypoxic respiratory failure History of diabetes mellitus History of hypertension Diverticulitis History of chronic heart failure History of COPD COPD (chronic obstructive pulmonary disease) Anemia Chronic heart failure with preserved ejection fraction (HFpEF) Hyperlipidemia Right lumbar radiculopathy CKD (chronic kidney disease), stage III Hypertension Chronic kidney disease PAD (peripheral artery disease) Renal cyst History of TIA (transient ischemic attack) Bilateral carotid artery stenosis Claudication RLS (restless legs syndrome) Diverticulosis TIA (transient ischemic attack) Vertigo Leg edema Dyslipidemia Home Medications ?Medication ?Instructions ?Recorded ?Last Taken ?Type atorvastatin 40 mg tablet 40 mg PO QHS cholesterol 02/22/16 11/27/24 History clopidogrel 75 mg tablet 75 mg PO DAILY BLOOD THINNER 02/22/16 12/26/24 History albuterol sulfate 90 mcg/actuation 2 puff inhalation Q4H PRN 03/16/18 09/27/24 History aerosol inhaler shortness of breath or wheezing pramipexole 1.5 mg tablet 1.5 mg PO QHS restless leg syndrome 08/18/23 01/10/25 History polysaccharide iron complex 150 mg 150 mg PO DAILY supplement 30 days 10/12/23 12/26/24 Rx iron capsule (Ferrex) #30 caps acetaminophen 500 mg tablet 1,000 mg PO Q6H PRN pain 02/14/24 01/10/25 History arformoterol 15 mcg/2 mL solution 15 mcg inhalation BID breathing 02/14/24 01/01/25 History for nebulization spironolactone 25 mg tablet 25 mg PO DAILY diuretic 02/14/24 11/28/24 History cholecalciferol (vitamin D3) 125 125 mcg PO DAILY 30 days #30 caps 06/08/24 11/28/24 Rx mcg (5,000 unit) capsule furosemide 40 mg tablet 40 mg PO BID FLUID RETENTION 09/24/24 11/28/24 History pantoprazole 40 mg tablet,delayed 40 mg PO BID reflux 09/24/24 01/01/25 History release budesonide 0.5 mg/2 mL suspension 0.5 mg inhalation BID breathing 11/28/24 01/10/25 History for nebulization carvedilol 25 mg tablet 25 mg PO BID 11/28/24 01/01/25 History magnesium oxide 400 mg PO DAILY 11/28/24 11/28/24 History potassium chloride 20 mEq/15 mL 20 meq PO DAILY 11/28/24 11/28/24 History oral liquid duloxetine 60 mg capsule,delayed 60 mg PO DAILY 12/27/24 01/01/25 History release oxycodone 5 mg tablet 5 mg PO Q6H PRN pain 3 days #12 01/07/25 01/11/25 Rx tabs Allergy/AdvReac Type Severity Reaction Status Date / Time lisinopril Allergy edema Verified 01/11/25 10:14 aspirin AdvReac Upset Verified 01/11/25 10:14 Stomach Family History Mother Heart disease Surgical History History of thyroid surgery History of carotid angioplasty History of kidney stones History of basal cell carcinoma excision History of total hysterectomy Social History household members: none housing: house Smoking Status: Former smoker how long ago did patient quit smokin years ago alcohol intake: current alcohol intake frequency: holidays/special occasions only details: rare substance use type: does not use caffeine: Yes Type: coffee Number of servings: 1 ROS ROS Narrative Patient denies any recent changes to eyes ears nose or throat. She did have black eyes from her fall. She had been having some shortness of breath coughing diarrhea fatigue. Also left hand pain numbness and tingling. Vital Signs Vital Signs Vital Signs: 01/12/25 11:38 01/12/25 12:00 01/12/25 12:05 Temperature 99.4 F H Temperature Source Core Pulse Rate 85 87 83 Respiratory Rate 19 H 21 H Respiratory Effort Respiratory Depth Respiratory Pattern Normal Blood Pressure 118/43 L Blood Pressure Mean 68 Blood Pressure Source Monitor Blood Pressure Position Semi-Fowlers Blood Pressure Location Left Arm Pulse Ox 96 Oxygen Delivery Method Nasal Cannula Oxygen Flow Rate (L/min) 2 01/12/25 12:30 01/12/25 13:00 01/12/25 14:00 Temperature 99.3 F H 99.2 F H Temperature Source Core Core Pulse Rate 85 95 Respiratory Rate 20 H 27 H Respiratory Effort Normal Non-Labored Respiratory Depth Normal Respiratory Pattern Normal Blood Pressure 116/97 H 129/96 H Blood Pressure Mean 103 107 Blood Pressure Source Monitor Monitor Blood Pressure Position Semi-Fowlers Semi-Fowlers Blood Pressure Location Left Arm Left Arm Pulse Ox 97 96 Oxygen Delivery Method Nasal Cannula Nasal Cannula Nasal Cannula Oxygen Flow Rate (L/min) 2 2 2 01/12/25 14:45 01/12/25 14:59 01/12/25 15:00 Temperature 99.2 F H Temperature Source Core Pulse Rate 91 88 88 Respiratory Rate 25 H Respiratory Effort Respiratory Depth Respiratory Pattern Blood Pressure 129/59 H 113/71 Blood Pressure Mean 82 85 Blood Pressure Source Monitor Monitor Blood Pressure Position Semi-Fowlers Semi-Fowlers Blood Pressure Location Left Arm Left Arm Pulse Ox 96 Oxygen Delivery Method Nasal Cannula Oxygen Flow Rate (L/min) 2 01/12/25 15:15 01/12/25 15:24 01/12/25 15:30 Temperature Temperature Source Pulse Rate 83 84 87 Respiratory Rate 22 H Respiratory Effort Respiratory Depth Respiratory Pattern Normal Blood Pressure 120/41 L 131/52 H Blood Pressure Mean 67 78 Blood Pressure Source Monitor Monitor Blood Pressure Position Semi-Fowlers Semi-Fowlers Blood Pressure Location Left Arm Left Arm Pulse Ox Oxygen Delivery Method Oxygen Flow Rate (L/min) 01/12/25 15:45 01/12/25 16:00 01/12/25 16:41 Temperature 99.1 F Temperature Source Core Pulse Rate 87 84 Respiratory Rate 22 H Respiratory Effort Normal Non-Labored Respiratory Depth Normal Respiratory Pattern Normal Blood Pressure 119/50 L 114/42 L Blood Pressure Mean 73 66 Blood Pressure Source Monitor Monitor Blood Pressure Position Semi-Fowlers Semi-Fowlers Blood Pressure Location Left Arm Left Arm Pulse Ox 97 Oxygen Delivery Method Nasal Cannula Nasal Cannula Oxygen Flow Rate (L/min) 2 2 01/12/25 17:00 01/12/25 18:00 01/12/25 19:00 Temperature 99.0 F 98.7 F 98.6 F Temperature Source Core Core Core Pulse Rate 84 93 81 Respiratory Rate 18 26 H 15 Respiratory Effort Respiratory Depth Respiratory Pattern Blood Pressure 116/55 L 109/52 L 108/40 L Blood Pressure Mean 75 71 62 Blood Pressure Source Monitor Monitor Monitor Blood Pressure Position Semi-Fowlers Semi-Fowlers Semi-Fowlers Blood Pressure Location Left Arm Left Arm Left Arm Pulse Ox 95 96 95 Oxygen Delivery Method Nasal Cannula Nasal Cannula Nasal Cannula Oxygen Flow Rate (L/min) 2 2 2 01/12/25 19:15 01/12/25 19:30 01/12/25 19:45 Temperature 98.6 F 98.6 F 98.6 F Temperature Source Core Core Core Pulse Rate 81 79 89 Respiratory Rate 14 15 25 H Respiratory Effort Respiratory Depth Respiratory Pattern Blood Pressure 120/47 L 117/45 L 125/46 H Blood Pressure Mean 71 69 72 Blood Pressure Source Blood Pressure Position Semi-Fowlers Semi-Fowlers Semi-Fowlers Blood Pressure Location Left Arm Left Arm Left Arm Pulse Ox 95 96 95 Oxygen Delivery Method Nasal Cannula Nasal Cannula Nasal Cannula Oxygen Flow Rate (L/min) 2 2 2 01/12/25 19:45 01/12/25 19:45 01/12/25 20:00 Temperature Temperature Source Pulse Rate 90 Respiratory Rate 20 H Respiratory Effort Respiratory Depth Respiratory Pattern Blood Pressure Blood Pressure Mean Blood Pressure Source Blood Pressure Position Blood Pressure Location Pulse Ox 93 Oxygen Delivery Method Nasal Cannula Nasal Cannula Oxygen Flow Rate (L/min) 2 2 01/12/25 20:01 01/12/25 21:00 01/12/25 22:00 Temperature 98.7 F 98.9 F 99.1 F Temperature Source Core Core Core Pulse Rate 91 96 90 Respiratory Rate 24 H 27 H 27 H Respiratory Effort Respiratory Depth Respiratory Pattern Blood Pressure 124/47 H 120/45 L 95/74 Blood Pressure Mean 72 70 81 Blood Pressure Source Blood Pressure Position Blood Pressure Location Pulse Ox 96 93 96 Oxygen Delivery Method Nasal Cannula Nasal Cannula Nasal Cannula Oxygen Flow Rate (L/min) 2 2 2 01/12/25 23:00 01/12/25 23:22 01/13/25 00:00 Temperature 99 F 99 F Temperature Source Core Core Pulse Rate 95 93 85 Respiratory Rate 19 H 21 H 19 H Respiratory Effort Respiratory Depth Respiratory Pattern Blood Pressure 119/59 L 147/52 H Blood Pressure Mean 79 83 Blood Pressure Source Blood Pressure Position Blood Pressure Location Pulse Ox 95 95 Oxygen Delivery Method Nasal Cannula Nasal Cannula Oxygen Flow Rate (L/min) 2 2 01/13/25 00:00 01/13/25 00:00 01/13/25 01:00 Temperature 98.9 F Temperature Source Core Pulse Rate 82 95 Respiratory Rate 16 Respiratory Effort Respiratory Depth Respiratory Pattern Blood Pressure 125/61 H Blood Pressure Mean 82 Blood Pressure Source Blood Pressure Position Blood Pressure Location Pulse Ox 96 Oxygen Delivery Method Nasal Cannula Nasal Cannula Oxygen Flow Rate (L/min) 2 2 01/13/25 02:00 01/13/25 03:00 01/13/25 04:00 Temperature 98.7 F 98.6 F 98.6 F Temperature Source Core Core Core Pulse Rate 82 91 77 Respiratory Rate 19 H 25 H 24 H Respiratory Effort Respiratory Depth Respiratory Pattern Blood Pressure 128/48 H 108/69 120/43 L Blood Pressure Mean 74 82 68 Blood Pressure Source Blood Pressure Position Blood Pressure Location Pulse Ox 97 92 96 Oxygen Delivery Method Nasal Cannula Nasal Cannula Nasal Cannula Oxygen Flow Rate (L/min) 2 2 2 01/13/25 05:00 01/13/25 06:00 01/13/25 07:00 Temperature 98.4 F 98.6 F 98.4 F Temperature Source Core Core Core Pulse Rate 85 98 80 Respiratory Rate 20 H 27 H 19 H Respiratory Effort Respiratory Depth Respiratory Pattern Blood Pressure 115/46 L 115/80 128/54 H Blood Pressure Mean 69 91 78 Blood Pressure Source Blood Pressure Position Blood Pressure Location Pulse Ox 93 89 96 Oxygen Delivery Method Nasal Cannula Nasal Cannula Nasal Cannula Oxygen Flow Rate (L/min) 2 2 2 01/13/25 07:48 01/13/25 07:48 01/13/25 08:00 Temperature 98.0 F Temperature Source Core Pulse Rate 98 95 Respiratory Rate 22 H 25 H Respiratory Effort Respiratory Depth Respiratory Pattern Normal Blood Pressure 144/52 H Blood Pressure Mean 82 Blood Pressure Source Monitor Blood Pressure Position Blood Pressure Location Pulse Ox 95 94 Oxygen Delivery Method Nasal Cannula Nasal Cannula Oxygen Flow Rate (L/min) 2 2 01/13/25 08:30 01/13/25 08:45 01/13/25 09:00 Temperature 98.2 F Temperature Source Core Pulse Rate 79 76 79 Respiratory Rate 22 H Respiratory Effort Respiratory Depth Respiratory Pattern Blood Pressure 120/48 L 115/53 L 103/48 L Blood Pressure Mean 72 73 66 Blood Pressure Source Monitor Monitor Monitor Blood Pressure Position Sitting Sitting Sitting Blood Pressure Location Left Arm Left Arm Left Arm Pulse Ox 94 Oxygen Delivery Method Nasal Cannula Oxygen Flow Rate (L/min) 2 01/13/25 09:15 Temperature Temperature Source Pulse Rate 95 Respiratory Rate Respiratory Effort Respiratory Depth Respiratory Pattern Blood Pressure 96/68 Blood Pressure Mean 77 Blood Pressure Source Monitor Blood Pressure Position Semi-Fowlers Blood Pressure Location Right Forearm Pulse Ox Oxygen Delivery Method Oxygen Flow Rate (L/min) Weight Weight: 67.2 kg Body Mass Index (BMI) 27.1 Physical Exam Narrative Patient is lying in bed comfortably. She is speaking easily in full sentences. She has a short arm cast on the left arm. She has complaints of paresthesias in all 5 fingers of the left hand. 2 point discrimination originally was 6 to 7 mm throughout the right hand. 6 to 7 mm at her small and ring finger of the left hand. Greater than 15 mm at the thumb index and middle finger of the left hand. She can move the fingers. She can flex them as much as the cast allows. Bruising and swelling noted proximal to the cast without significant change from . I did bivalve her cast volarly and dorsally. I rechecked her 2 point discrimination and it remained unchanged to the left hand. A few minutes later I split her [place] liner dorsally. I did note a healing abrasion over her distal radius without active bleeding or signs of infection. That was known to be there previously according to her and Dr. Tarango I did check her 2 point discrimination again and it remained unchanged at the left hand. I did apply an Fernando wrap simply to support the cast so would not fall off. It did not seem to cause any pressure or increased tightness X-rays of the left wrist were taken and reviewed today showing a Colles' fracture of the wrist with mild apex volar angulation. No significant shortening. Very reasonable position for an 89-year-old. Previous x-rays of the left wrist also reviewed Lab / Micro Data 01/12/25 06:25 01/12/25 06:25 Rhythm Strip Rhythm Strip: Sinus Rhythm Rate: 90 Ectopy: None Imaging Radiology Impression Echocardiogram 01/11/25 22:26 Interpretation Summary Mild concentric left ventricular hypertrophy. Stage 1 diastolic dysfunction. Ordering Physician: Sam Trotter Referring Physician: Chuck Reynolds Performed By: Antoine Fonseca RCS Wrist X-Ray 01/13/25 08:50 IMPRESSION: Interval casting material placement which decreases visualization. Acute/subacute left distal radial fracture as described. Reading Location: [id number] Assessment & Plan Assessment/Plan (1) Left wrist fracture: QUALIFIERS: Encounter type: subsequent encounter Fracture type: closed Fracture healing: with routine healing Qualified Code(s): S62.102D - Fracture of unspecified carpal bone, left wrist, subsequent encounter for fracture with routine healing PLAN: Her diagnosis and treatment options regarding her left distal radius fracture, left hand paresthesias, left wrist discomfort discussed with her at length. Her nurse was present. Patient tolerated the cast bivalving and splitting her cast liner very well. Patient understands her numbness may resolve from our intervention today or potentially may persist. I also discussed her case with her daughter Dora Goodman. I explained the carpal tunnel syndrome can be worsened from injury, potentially from immobilization/casting. I explained by releasing her cast liner and cast this may ultimately help with her symptoms. This could not be guaranteed. I explained that surgical intervention for carpal tunnel release could be considered. However patient currently is ill with pneumonia, sepsis, C. difficile. I believe this puts her at a high risk for surgery with her current condition. She understands and agrees. Patient and her daughter would like to hold off on any surgery at this point. Dr. Tarango was in agreement. He plans to evaluate her tomorrow. He may consider carpal tunnel release in a week or 2 when she has resolved her current medical conditions/infections. Otherwise continue with ice and elevation. Continue with Fernando wrap holding her cast in position. Okay for finger and elbow motion. Possibility of permanent nerve dysfunction explained again to patient and her daughter. Risk of surgery also explained. Again they agree with nonoperative treatment and close follow-up.
[2025-01-13] MEDS: Cholecalciferol (Vit D3) 125 MCG CAPSULE (5,000 UNITS) PO (11:07)
[2025-01-13] MEDS: Piperacil/Tazobactam 3.375 GM in 0.9% Normal Saline (50mL MB+) 50 ML IV ×2 (11:07→23:06)
[2025-01-13 11:21] LABS: Anion Gap 13 (5-15); BUN 37 mg/dL (4-19); BUN/Creat Ratio 25.3 RATIO (10-20); Calcium,Total 6.6 mg/dL (7.6-11.0); Carbon Dioxide 19.8 mmol/L (21.0-32.0); Chloride 107 mmol/L (98-108); Estimated Creatinine Clearance 24.24 ml/min (50-250); Glucose 142 mg/dL (70-99); Potassium 3.3 mmol/L (3.3-5.1)
--- NOTE | 2025-01-13 13:01 | PCM.PN.HOSP ---
Reason for Visit Reason for Visit: Diagnoses Sepsis, unspecified organism (01/11/25) Fracture of unspecified carpal bone, left wrist, subsequent encounter for fracture with routine healing (01/11/25) Subjective Subjective Patient was seen and examined today, she remains on 2 L of oxygen at this time, she is currently on pressors and midodrine was added by critical care today. Patient's white blood cell count today was 9.2, hemoglobin was 9.7, patient's creatinine was 1.47 and BUN was 37. Urine culture grew out a gram-negative lactose physician non invasive cardiologist, blood culture is pending. Patient complained of pain from her cast on her left wrist, I had orthopedic surgery (Dr. Mcmanus) see the patient today, he split her cast and applied Fernando wrap over the cast. Objective Data Objective Data Vital Signs: Vital Signs Temp Pulse Resp BP Pulse Ox O2 Del Method O2 Flow Rate 98.3 F 86 24 H 127/81 H 96 Nasal Cannula 2 01/13/25 12:20 01/13/25 12:45 01/13/25 12:20 01/13/25 12:45 01/13/25 12:20 01/13/25 12:20 01/13/25 12:20 Oxygen Flow Rate (L/min) 2 Oxygen Delivery Method Nasal Cannula Weight: 67.2 kg Body Mass Index (BMI) 27.1 Intake & Output: Intake and Output for Last 24 Hours 01/11/25 01/12/25 01/13/25 23:59 23:59 23:59 Intake Total 3766.52 / 3785.32 4219.45 / 4219.45 2069.55 / 2069.55 Output Total 1220 / 1320 550 / 550 Balance 3766.52 / 3785.32 2999.45 / 2899.45 1519.55 / 1519.55 Lab / Micro Data 01/12/25 06:25 01/13/25 10:45 Labs: Laboratory Results - last 24 hr 01/13/25 10:45: Sodium 140, Potassium 3.3, Chloride 107, Carbon Dioxide 19.8 L, Anion Gap 13, BUN 37 H, Creatinine 1.47 H, Estim Creat Clear Calc 24.24 L, Est GFR (MDRD) Non-Af 34 L, BUN/Creatinine Ratio 25.3 H, Glucose 142 H, Lactic Acid 1.1, Calcium 6.6 L Micro: Microbiology 01/11/25 14:15 Urine, Clean Catch Urine Culture - Preliminary GNR lactose physician non invasive cardiologist 01/11/25 22:04 Nasal Secretion MRSA (PCR) - Final 01/11/25 23:00 Mucosa - Nasopharyngeal SARS-CoV-2, Influenza & RSV (PCR) - Final 01/11/25 11:05 Stool Stool Occult Blood (ROYAL) - Final Occult Blood Positive Radiography Diagnostic Testing: Radiology Impression Wrist X-Ray 01/13/25 08:50 IMPRESSION: Interval casting material placement which decreases visualization. Acute/subacute left distal radial fracture as described. Reading Location: [facility] Rhythm Strip Rhythm Strip: Sinus Rhythm Rate: 90 Ectopy: None Physical Exam Narrative alert, oriented x3, no apparent distress and healthy appearing Constitutional Narrative: Patient has extensive ecchymosis over her facial area secondary to recent fall General Appearance: cooperative, well kempt and well developed Orientation / Consciousness: awake, oriented to person, oriented to place and oriented to time HEENT normocephalic and moist oral mucous membranes HEENT Narrative: Ecchymosis in the facial area and periorbital area Eyes PERRL, EOMs intact bilaterally and conjunctivae normal Neck supple, no JVD, thyroid normal and no carotid bruits General: trachea midline Resp normal respiratory effort, no retractions, no use of accessory muscles and clear to auscultation bilaterally Auscultation: Negative for rales, rhonchi or wheezes Cardio regular rate, regular rhythm, S1 normal heart sound, S2 normal heart sound, no murmurs, no rub and no gallops GI normal to inspection, nondistended, normoactive bowel sounds, soft to palpation, non-tender and non-distended Extremity no clubbing, cyanosis or edema Extremity Narrative: There is a cast over the patient's left wrist and forearm area Skin no rashes or lesions noted General Skin Exam: no breakdown Neuro oriented x3, CN's II-XII intact bilaterally, moves all extremities, no focal motor deficits and no sensory deficits noted Sensorium / Orientation: awake and alert Speech: speech normal Psych affect normal Assessment & Plan Assessment/Plan (1) Sepsis: PLAN: Plan 1. Septic shock secondary to pneumonia and acute cystitis from gram-negative lactose physician non invasive cardiologist-patient currently is on pressors at the present time, critical care ordered midodrine today, await final culture results. #2 community-acquired pneumonia-patient is on Zosyn #3 acute cystitis-patient is on Zosyn #4 C. difficile colitis-patient continues to have diarrhea she will be maintained on oral vancomycin #5 acute kidney injury-patient will be given fluids, labs will be monitored #6 pain secondary to recent left wrist fracture-patient will be given analgesics while in the hospital #7 anemia-patient's hemoglobin on 12/18/2024 was 10.9, her hemoglobin today in the emergency room was 9.3. Hemoglobin today was 9.7. #8 demand ischemia-patient has no symptoms of chest discomfort, I think the demand ischemia secondary to her septic shock. Total clinical time spent by myself addressing the patient's medical issues, reviewing all of her data, and collaborating with patient's care team: 35 minutes Charges/Coding Visit Charges Inpatient E&M: 78423 Subs Hosp L2
[2025-01-13] MEDS: Norepinephrine 8 MG in 0.9% Normal Saline (250mL Bag) 242 ML 3.8 MG CONT INF (16:41)
[2025-01-13] MEDS: Azithromycin 500 MG in 0.9% Normal Saline (250mL Bag) 250 ML 255 MG IV (21:07)
[2025-01-14] VITALS (67 sets, daily range): BP systolic 65–151; BP diastolic 39–104; PULSE 72–105; RESP 11–31; TEMP 36.6–37.4; O2SAT 92–100; BMI 27.4
[2025-01-14] MEDS: 0.9% Normal Saline (1000mL) 1,000 ML 100 ML IV (02:51)
[2025-01-14] MEDS: Vancomycin 125 MG/5 ML Susp PO.SYRINGE PO ×3 (06:06→17:29)
--- NOTE | 2025-01-14 06:36 | PN.CC_ITS ---
Assessment & Plan Assessment/Plan (1) Sepsis: PLAN: Plan RECOMMENDATIONS: 1. Continue empiric antibiotics, pending culture results. 2. Continue to wean Levophed to maintain mean arterial pressure at or above 65 mmHg. 3. Continue scheduled midodrine as ordered. 4. Stop continuous IV fluids. 5. Encourage incentive spirometer use and mobilize patient as tolerated. IMPRESSIONS: 1. Septic shock Clinical concern for underlying urinary tract source of infection +/- pneumonia. The patient ultimately developed fluid refractory hypotension, which required the initiation of vasopressor support. The patient will continue to be weaned on Levophed to maintain mean arterial pressure at or above 65 mmHg. Scheduled midodrine 3 times daily will be continued. Continue antimicrobials, pending finalized culture results. 2. Acute kidney injury Prerenal in etiology. Creatinine has improved with volume expansion. Continue to monitor urine output. No current indication for renal replacement therapy. 3. Recent left wrist fracture/recent C. difficile colitis on vancomycin/anemia/peripheral arterial disease/hypothyroidism Complicates care, management, recovery and prognosis. Continue supportive measures as noted above along with current pain control regimen. Encourage incentive spirometer use and mobilize patient as tolerated. TIME: 34 minutes of critical care time, independent of procedures, was spent addressing the patient's septic shock, acute kidney injury, review of all data and collaboration with the care team. Subjective Subjective The patient was seen and examined at the bedside this morning. Events from the last 24 hours have been reviewed. The patient is currently afebrile and maintaining appropriate oxygen saturations on 2 L/min via nasal cannula. The patient remains on low-dose Levophed at 2 mcg/min to maintain hemodynamic stability. She is currently documented to be overall net +10.2 L for the hospitalization. The patient reported that she has not had any diarrhea for over 24 hours. White blood cell count is within normal limits. Hemoglobin is stable. Platelet count is low at 116,000. Creatinine has improved to 1.4. Objective Data Objective Data The patient's most recent lab work, culture data and imaging studies have all been personally reviewed. Surface echocardiogram demonstrated mild concentric LVH with stage I diastolic dysfunction. 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 Vital Signs: Vital Signs Temp Pulse Resp BP Pulse Ox O2 Del Method O2 Flow Rate 98.6 F 81 16 112/54 L 98 Nasal Cannula 2 01/14/25 06:00 01/14/25 06:00 01/14/25 06:00 01/14/25 06:00 01/14/25 06:00 01/14/25 06:00 01/14/25 06:00 FiO2 98 01/14/25 03:20 Oxygen Flow Rate (L/min) 2 Oxygen Delivery Method Nasal Cannula Weight: 150 lb 2.157 oz Body Mass Index (BMI) 27.4 Intake & Output: Intake and Output for Last 24 Hours 01/12/25 01/13/25 01/14/25 23:59 23:59 23:59 Intake Total 4219.45 / 4219.45 3335.21 / 3336.16 1071.83 / 1071.83 Output Total 1220 / 1320 950 / 950 Balance 2999.45 / 2899.45 2385.21 / 2386.16 1071.83 / 1071.83 Lab / Micro Data Attestation: I reviewed the patient's lab results. 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 Acute/subacute left distal radial fracture as described. Reading Location: [facility] Rhythm Strip Rhythm Strip: Sinus Rhythm Rate: 90 Ectopy: None Physical Exam Const alert, oriented x3 and no apparent distress General Appearance: cooperative HEENT normocephalic and head/scalp atraumatic HEENT Narrative: Facial ecchymoses noted Eyes PERRL, EOMs intact bilaterally and conjunctivae normal Neck supple General: trachea midline Chest inspection of chest normal Resp normal respiratory effort Auscultation: Negative for rales, rhonchi or wheezes Cardio regular rate and regular rhythm GI normal to inspection, nondistended, normoactive bowel sounds Extremity no clubbing, cyanosis or edema Extremity Narrative: Scattered ecchymoses on extremities Neuro oriented x3, CN's II-XII intact bilaterally and moves all extremities Psych cooperative and affect normal Charges/Coding Procedures Hospitalists Procedures: 31440 Critical Care 1st Hr
[2025-01-14 07:05] LABS: Hematocrit 30.4 % (37-47); Hemoglobin 9.4 g/dL (12.0-15.0); Mean Corp Hgb Conc 30.9 g/dL (32-36); Mean Corpuscular Volume 101.0 fL (81-99); Mean Platelet Vol. 11.5 fl (6.2-12.0); POSITIVE COUNT YES; POSITIVE DIFFERENTIAL YES; POSITIVE MORPHOLOGY YES; Platelet Count 116 K/mm3 (150-450); RBC Distribution Width CV 15.2 % (11.6-14.6); RBC Distribution Width SD 56.8 fl (35.1-43.9); Red Blood Count 3.01 M/mm3 (4.2-5.4); White Blood Count 10.5 K/mm3 (4.4-11.0)
[2025-01-14 07:10] LABS: Differential Indicated MANUAL DIFF
[2025-01-14] MEDS: Budesonide Respules 0.5 MG/2 ML AMPUL.NEB. INHALATION ×2 (07:22→19:07)
[2025-01-14 07:33] LABS: Anion Gap 11 (5-15); BUN 31 mg/dL (4-19); BUN/Creat Ratio 21.9 RATIO (10-20); Calcium,Total 6.8 mg/dL (7.6-11.0); Carbon Dioxide 19.6 mmol/L (21.0-32.0); Chloride 111 mmol/L (98-108); Estimated Creatinine Clearance 25.61 ml/min (50-250); Glucose 100 mg/dL (70-99); Potassium 3.4 mmol/L (3.3-5.1)
[2025-01-14] MEDS: Cholecalciferol (Vit D3) 125 MCG CAPSULE (5,000 UNITS) PO (09:35)
[2025-01-14] MEDS: Piperacil/Tazobactam 3.375 GM in 0.9% Normal Saline (50mL MB+) 50 ML IV (09:36)
[2025-01-14 09:41] LABS: Neutrophil-Band 4 % (0-5); Neutrophil-Segmented 84 % (47-70); Total Cells Counted 100 (MANUAL DIFF)
[2025-01-14 09:43] LABS: Red Cell Morphology NORM C+C NORMAL (NORM C&C)
--- NOTE | 2025-01-14 14:03 | PN.ORTHO_ITS ---
Subjective Subjective Patient seen and examined. Patient admitted for septic shock and pneumonia. Reports numbness and tingling in median nerve distribution left hand. Considerable pain in the left hand and wrist. Recent left distal radius fracture with casting applied left wrist last week. Objective Data Objective Data Vital Signs: Vital Signs Temp Pulse Resp BP Pulse Ox O2 Del Method O2 Flow Rate 99.1 F 84 23 H 119/63 94 Nasal Cannula 2 01/14/25 12:00 01/14/25 12:45 01/14/25 12:00 01/14/25 12:45 01/14/25 13:06 01/14/25 12:00 01/14/25 13:06 FiO2 98 01/14/25 03:20 Oxygen Flow Rate (L/min) 2 Oxygen Delivery Method Nasal Cannula Weight: 150 lb 2.157 oz Body Mass Index (BMI) 27.4 Intake & Output: Intake and Output for Last 24 Hours 01/12/25 01/13/25 01/14/25 23:59 23:59 23:59 Intake Total 4219.45 / 4219.45 3335.21 / 3336.16 1614.70 / 1614.70 Output Total 1220 / 1320 950 / 950 350 / 350 Balance 2999.45 / 2899.45 2385.21 / 2386.16 1264.70 / 1264.70 Lab / Micro Data 01/14/25 06:15 01/14/25 06:15 Labs: Laboratory Results - last 24 hr 01/14/25 06:15: WBC 10.5, RBC 3.01 L, Hgb 9.4 L, Hct 30.4 L, MCV 101.0 H, MCH 31.2, MCHC 30.9 L, RDW Std Deviation 56.8 H, RDW Coeff of Ha 15.2 H, Plt Count 116 L, MPV 11.5, Neut % (Auto) Not Reportable, Absolute Neuts (auto) 9.2 H, A bsolute Lymphs (auto) 0.21 L, Total Counted 100, Neutrophils % (Manual) 84 H, Band Neutrophils % 4, Lymphocytes % (Manual) 2 L, Monocytes % (Manual) 1, Eosinophils % (Manual) 4, Metamyelocytes % 4 H, Myelocytes % 1 H, Platelet Estimate SLT DEC, RBC Morphology NORM C+C, Sodium 141, Potassium 3.4, Chloride 111 H, Carbon Dioxide 19.6 L, Anion Gap 11, BUN 31 H, Creatinine 1.40 H, Estim Creat Clear Calc 25.61 L, Est GFR (MDRD) Non-Af 36 L, BUN/Creatinine Ratio 21.9 H, Glucose 100 H, Calcium 6.8 L Micro: Microbiology 01/11/25 14:15 Urine, Clean Catch Urine Culture - Final Klebsiella pneumoniae sp pneum 01/11/25 22:14 Blood Culture (Wb) - Arm Left Blood Culture - Preliminary No growth in 48 hours. 01/11/25 22:04 Nasal Secretion MRSA (PCR) - Final 01/11/25 23:00 Mucosa - Nasopharyngeal SARS-CoV-2, Influenza & RSV (PCR) - Final 01/11/25 11:05 Stool Stool Occult Blood (ROYAL) - Final Occult Blood Positive Rhythm Strip Rhythm Strip: Sinus Rhythm Rate: 90 Ectopy: None Physical Exam Narrative Alert and oriented x 3, no acute distress. Normal mood and affect. Left upper extremity: Bivalved short arm cast in place. Brisk capillary fill in the fingertips. Cardinal motions left hand are intact. Diminished in station in the median nerve distribution, is able to feel pressure and pain. Swelling noted in the digits. Assessment & Plan Assessment/Plan (1) Left wrist fracture: QUALIFIERS: Encounter type: subsequent encounter Fracture type: c losed Fracture healing: with routine healing Qualified Code(s): S62.102D - Fracture of unspecified carpal bone, left wrist, subsequent encounter for fracture with routine healing PLAN: Patient seen and examined. Agree with prior diagnosis of acute carpal tunnel syndrome. This appears slightly improved today compared to yesterday which I suspect is due to bivalving of the cast. I recommended elevation of the left hand as well as range of motion of her digits. We discussed typical surgical management for an acute carpal tunnel syndrome however given her current medical issues, I do feel surgical intervention would be more harmful than beneficial at this time. I explained to the patient that we will likely monitor her carpal tunnel syndrome and plan to follow-up next week in the office. She understands that permanent nerve damage may occur due to nonoperative management at this time and she agrees that the risks outweigh the benefits of any surgical invention at this time. Continue multimodal pain management. I will sign off at this time. Please do not hesitate to call if any questions or concerns arise.
--- NOTE | 2025-01-14 14:46 | CHAPLAIN ---
Type of Pastoral Visit ___ Initial Visit ___ Follow-up Visit ___ On-call Visit ___ General Patient Visit ___ Spiritual Assessment ___ Family Conference ___ Bereavement ___ Rapid Response ___ Code Blue ___ Other (describe below) Pastoral Care Referral From ___ Patient ___ Family ___ Nurse ___ Physician ___ Evaporator Repairer ___ Flavorings Compounder ___ Other (describe below) Sacrament/Intervention ___ Active listening ___ Anointing ___ Mu-Ism ___ Bereavement ___ Communion ___ Jackie exploration ___ ___ Life review ___ Prayer ___ Reconciliation ___ Sacrament of Sick ___ Supportive presence ___ Wedding ___ Other (describe below) Pastoral Comments patient is alert and able to speak clearly; daughter of patient is in the room; pt indicates some about her health issue and acknowledges that she has had her first broken bone in 87 years; pt cannot think of anything she needs but welcomes a prayer for support; pt concern is getting heart in good rhythm; pt does not attend yazdanism services but did years ago;
--- NOTE | 2025-01-14 14:51 | PN.HOSP_ITS ---
Reason for Visit Reason for Visit: Diagnoses Sepsis, unspecified organism (01/11/25) Fracture of unspecified carpal bone, left wrist, subsequent encounter for fracture with routine healing (01/11/25) Subjective Subjective Patient was seen and examined today, she is still on a small amount of pressors. Patient's urine culture grew out Klebsiella pneumoniae, blood culture showed no growth at 48 hours. I made the decision to transition the patient over to oral antibiotics. The plan is for the patient to go to TCU for rehab services at the time of discharge from the hospital. Objective Data Objective Data Vital Signs: Vital Signs Temp Pulse Resp BP Pulse Ox O2 Del Method O2 Flow Rate 98.8 F 80 27 H 102/52 L 93 Nasal Cannula 2 01/14/25 14:00 01/14/25 14:30 01/14/25 14:00 01/14/25 14:30 01/14/25 14:00 01/14/25 14:00 01/14/25 14:00 FiO2 98 01/14/25 03:20 Oxygen Flow Rate (L/min) 2 Oxygen Delivery Method Nasal Cannula Weight: 68.1 kg Body Mass Index (BMI) 27.4 Intake & Output: Intake and Output for Last 24 Hours 01/12/25 01/13/25 01/14/25 23:59 23:59 23:59 Intake Total 4219.45 / 4219.45 3335.21 / 3336.16 1666.13 / 1666.13 Output Total 1220 / 1320 950 / 950 350 / 350 Balance 2999.45 / 2899.45 2385.21 / 2386.16 1316.13 / 1316.13 Lab / Micro Data 01/14/25 06:15 01/14/25 06:15 Labs: Laboratory Results - last 24 hr 01/14/25 06:15: WBC 10.5, RBC 3.01 L, Hgb 9.4 L, Hct 30.4 L, MCV 101.0 H, MCH 31.2, MCHC 30.9 L, RDW Std Deviation 56.8 H, RDW Coeff of Ha 15.2 H, Plt Count 116 L, MPV 11.5, Neut % (Auto) Not Reportable, Absolute Neuts (auto) 9.2 H, A bsolute Lymphs (auto) 0.21 L, Total Counted 100, Neutrophils % (Manual) 84 H, Band Neutrophils % 4, Lymphocytes % (Manual) 2 L, Monocytes % (Manual) 1, Eosinophils % (Manual) 4, Metamyelocytes % 4 H, Myelocytes % 1 H, Platelet Estimate SLT DEC, RBC Morphology NORM C+C, Sodium 141, Potassium 3.4, Chloride 111 H, Carbon Dioxide 19.6 L, Anion Gap 11, BUN 31 H, Creatinine 1.40 H, Estim Creat Clear Calc 25.61 L, Est GFR (MDRD) Non-Af 36 L, BUN/Creatinine Ratio 21.9 H, Glucose 100 H, Calcium 6.8 L Micro: Microbiology 01/11/25 14:15 Urine, Clean Catch Urine Culture - Final Klebsiella pneumoniae sp pneum 01/11/25 22:14 Blood Culture (Wb) - Arm Left Blood Culture - Preliminary No growth in 48 hours. 01/11/25 22:04 Nasal Secretion MRSA (PCR) - Final 01/11/25 23:00 Mucosa - Nasopharyngeal SARS-CoV-2, Influenza & RSV (PCR) - Final 01/11/25 11:05 Stool Stool Occult Blood (ROYAL) - Final Occult Blood Positive Rhythm Strip Rhythm Strip: Sinus Rhythm Rate: 90 Ectopy: None Physical Exam Narrative alert, oriented x3, no apparent distress and healthy appearing Constitutional Narrative: Patient has extensive ecchymosis over her facial area secondary to recent fall General Appearance: cooperative, well kempt and well developed Orientation / Consciousness: awake, oriented to person, oriented to place and oriented to time HEENT normocephalic and moist oral mucous membranes HEENT Narrative: Ecchymosis in the facial area and periorbital area Eyes PERRL, EOMs intact bilaterally and conjunctivae normal Neck supple, no JVD, thyroid normal and no carotid bruits General: trachea midline Resp normal respiratory effort, no retractions, no use of accessory muscles and clear to auscultation bilaterally Auscultation: Negative for rales, rhonchi or wheezes Cardio regular rate, regular rhythm, S1 normal heart sound, S2 normal heart sound, no murmurs, no rub and no gallops GI normal to inspection, nondistended, normoactive bowel sounds, soft to palpation, non-tender and non-distended Extremity no clubbing, cyanosis or edema Extremity Narrative: There is a cast over the patient's left wrist and forearm area Skin no rashes or lesions noted General Skin Exam: no breakdown Neuro oriented x3, CN's II-XII intact bilaterally, moves all extremities, no focal motor deficits and no sensory deficits noted Sensorium / Orientation: awake and alert Speech: speech normal Psych affect normal Assessment & Plan Assessment/Plan (1) Sepsis: PLAN: Plan 1. Septic shock secondary to pneumonia and acute cystitis from Klebsiella pneumoniae -patient currently is on pressors at the present time, blood cultures so far have been negative, I have decided to transition the patient over to oral Levaquin and stop her Zosyn #2 community-acquired pneumonia-patient is now on Levaquin 500 mg daily #3 acute cystitis-patient is on Levaquin 500 mg daily #4 C. difficile colitis- she will be maintained on oral vancomycin for 5 days past the time she finishes her Levaquin, patient does not have diarrhea any longer #5 acute kidney injury-creatinine is improved #6 pain secondary to recent left wrist fracture-patient will be given analgesics while in the hospital, she was seen by orthopedic surgery and her cast was cut #7 anemia-patient's hemoglobin on 12/18/2024 was 10.9, her hemoglobin in the emergency room was 9.3. Hemoglobin today was 9.4. #8 demand ischemia-patient has no symptoms of chest discomfort, I think the demand ischemia secondary to her septic shock. Total clinical time spent by myself addressing the patient's medical issues, reviewing all of her data, and collaborating with patient's care team: 35 minutes Charges/Coding Visit Charges Inpatient E&M: 20454 Subs Hosp L2
--- NOTE | 2025-01-14 15:41 | CASEMGMT ---
Addendum entered by Lorena Daniels 01/14/25 16:25: Pt accepted at TCU. Pt is not medically stable at this time; precert to be started when pt medically ready. SW remains available to follow. NERISSA Venegas Original Note: Social Work- SW followed up with TCU admissions regarding referral. TCU reviewing. [facility] remains available to follow. NERISSA Venegas
--- NOTE | 2025-01-14 21:00 | PCM.HOSP.N ---
Hospitalist Note I was contacted by nursing ben, they stated that the patient was having trouble swallowing her medications, patient has a history of achalasia and was injected with Botox in the esophagus approximately 3 months ago, I contacted GI and they stated that the injection would last approximately 3 months, I have written for gastroenterology to see the patient and she will most likely have an EGD with injection of Botox on 01/15/2025
--- NOTE | 2025-01-14 21:38 | NURSING ---
2100- offered patient the option to have a bath, pt refused but requested gown be changed. Gown changed per patient request and bed linen changed. This RN performed ariela and cath care. Pt boosted to top of the bed. Offered patient to turn onto one side w/ pillow underneath hip, pt refused. Educated patient on susceptibility to pressure wounds while in hospital and not being as active as she typically is at home. Pt refused turn. Pt denied further needs at this time.
--- NOTE | 2025-01-14 22:06 | NURSING ---
2149- patient's daughter called unit to discuss patient's care. Pt's daughter, Dora, stated to this RN that the patient had called her seemingly anxious and said that no nurses were checking on her, nurses were attempting to give her meds when she was not supposed to have them and that nobody knew what was going on. This RN reassured patient's daughter that this RN had been bedside w/ patient and that at approximately 2100, this RN and FORGE OPERATOR HELPER were bedside and had offered patient to bathe and reposition, to which she refused but allowed us to change her gown. This Rn offered to given patient's daughter a full update and patient's daughter agreeable. Informed, Dora, that the patient is ok to eat/ drink until midnight when she is placed on NPO, meaning nothing to eat or drink. I informed daughter that I had asked the patient if she felt like she was able to swallow/ gave her the option to take or not take her meds depending on how her swallowing was doing, patient had refused meds when offered. Reinforced, however, that she was able to take meds if patient feeling able to until midnight. Explained to patient's daughter that Dr. Real was to take patient for a possible EGD tomorrow to assess if her achalasia was the issue behind swallowing again as patient has received a botox injection to this area before for the same issue. Daughter stated she understood. Updated daughter on Dr. Tarango coming bedside today to see patient for the pain/ numbness she had been experiencing in her left wrist. Infomred her that based off of Emelina's note, ortho was suspecting that the issue was carpal tunnel, however, given patients ICU admission, she is not a candidate for surgery right now and it was recommended that they follow up after discharge. Patient's daughter agreeable to this. Patient's daughter wondering why her mother seems so confused. This Rn educated her on effects of UTI on elderly as well as CAM/ hospital delirium that is possible. Discussed the method we use to screen for delirium and informed her that she was negative @ 1944 when this RN assessed her at the beginning of the shift. Patient's daughter aslso questioning the recurrent diarrhea patient had today. informed her that because of patient's cdiff diagnosis i06, that precautions were reordered and oral vanc will be continued to ensure the infection is still being treated even if potentially noninfectious at this point in time. Daughter understanding and thanked this Rn for taking the time to explain things to her, informed me that she would text her mom and reassure her at this time
[2025-01-15] VITALS (50 sets, daily range): BP systolic 77–143; BP diastolic 45–102; PULSE 88–121; RESP 12–34; TEMP 36.3–37.9; O2SAT 90–100; BMI 29.2
[2025-01-15 02:24] LABS: Hematocrit 32.0 % (37-47); Hemoglobin 10.0 g/dL (12.0-15.0); Mean Corp Hgb Conc 31.3 g/dL (32-36); Mean Corpuscular Volume 99.1 fL (81-99); Mean Platelet Vol. 11.1 fl (6.2-12.0); POSITIVE COUNT YES; POSITIVE MORPHOLOGY YES; Platelet Count 129 K/mm3 (150-450); RBC Distribution Width CV 15.1 % (11.6-14.6); RBC Distribution Width SD 55.0 fl (35.1-43.9); Red Blood Count 3.23 M/mm3 (4.2-5.4); White Blood Count 9.8 K/mm3 (4.4-11.0)
[2025-01-15 02:31] LABS: Differential Indicated MANUAL DIFF
[2025-01-15 02:57] LABS: AST(SGOT) 48 U/L (<=31); Alanine Aminotransfer ALT/SGPT 26 U/L (<=34); Albumin, Serum 2.7 g/dL (3.4-4.8); Alkaline Phosphatase 121 U/L (35-104); Anion Gap 12 (5-15); BUN 27 mg/dL (4-19); BUN/Creat Ratio 19.1 RATIO (10-20); Calcium,Total 7.5 mg/dL (7.6-11.0); Carbon Dioxide 18.9 mmol/L (21.0-32.0); Chloride 111 mmol/L (98-108); Estimated Creatinine Clearance 25.79 ml/min (50-250); Globulin 2.5 g/dL (2.2-4.2); Glucose 84 mg/dL (70-99); Potassium 3.7 mmol/L (3.3-5.1)
[2025-01-15 03:16] LABS: Magnesium 1.1 mg/dL (1.5-2.2)
[2025-01-15] MEDS: Potassium Phosphate 15 MM in 0.9% Normal Saline (250mL Bag) 250 ML 125 MM IV (03:57)
[2025-01-15] MEDS: Magnesium Sulfate 2 GM in Dextrose 5%-Water (100mL Bag) 100 ML IV (03:57)
[2025-01-15] MEDS: 0.9% Saline Lock 10 ML Syringe IV ×4 (03:59→21:30)
[2025-01-15 04:05] LABS: Neutrophil-Segmented 87 % (47-70); Total Cells Counted 100 (MANUAL DIFF)
[2025-01-15 04:06] LABS: Red Cell Morphology NORM C+C NORMAL (NORM C&C)
[2025-01-15] MEDS: Vancomycin 125 MG/5 ML Susp PO.SYRINGE PO ×2 (05:26→12:44)
--- NOTE | 2025-01-15 06:39 | PN.CC_ITS ---
Assessment & Plan Assessment/Plan (1) Sepsis: PLAN: Plan RECOMMENDATIONS: 1. Continue antimicrobials as ordered. 2. Continue scheduled midodrine. 3. Wean supplemental oxygen to maintain saturations at or above 90%. 4. Encourage incentive spirometer use and mobilize patient as tolerated. IMPRESSIONS: 1. Septic shock Resolved. Clinical concern for underlying urinary tract source of infection +/- pneumonia. The patient ultimately developed fluid refractory hypotension, which required the initiation of vasopressor support. With supportive care, including IV fluid hydration and antimicrobials, the patient was able to be weaned from vasopressor support and remains hemodynamically stable. Will plan to continue antimicrobials based upon cultures and sensitivities. 2. Acute kidney injury Prerenal in etiology. Creatinine has improved with volume expansion. Continue to monitor urine output. No current indication for renal replacement therapy. 3. Recent left wrist fracture/recent C. difficile colitis on vancomycin/anemia/peripheral arterial disease/hypothyroidism Complicates care, management, recovery and prognosis. Continue supportive measures as noted above along with current pain control regimen. Encourage incentive spirometer use and mobilize patient as tolerated. This note was generated with [employer] dictation software. It may contain incorrect words, spelling, and punctuation that were not noted in checking the note before signing. Subjective Subjective The patient was seen and examined at the bedside this morning. Events from the last 24 hours have been reviewed. The patient is currently afebrile, hemodynamically stable and maintaining appropriate oxygen saturations on 4 L/min via nasal cannula. The patient is currently documented to be overall net +10 L for the hospitalization. The patient once again developed diarrhea overnight. White blood cell count remains within normal limits. Hemoglobin and platelet count are stable. Creatinine is stable at 1.39. Objective Data Objective Data The patient's most recent lab work, culture data and imaging studies have all been personally reviewed. Surface echocardiogram demonstrated mild concentric LVH with stage I diastolic dysfunction. Urine culture was positive for Klebsiella pneumonia. Vital Signs: Vital Signs Temp Pulse Resp BP Pulse Ox O2 Del Method O2 Flow Rate 99.6 F H 105 H 25 H 119/64 98 Nasal Cannula 4 01/15/25 05:00 01/15/25 06:38 01/15/25 06:00 01/15/25 06:38 01/15/25 06:00 01/15/25 06:00 01/15/25 06:00 FiO2 98 01/14/25 03:20 Oxygen Flow Rate (L/min) 4 Oxygen Delivery Method Nasal Cannula Weight: 159 lb 9.835 oz Body Mass Index (BMI) 29.2 Intake & Output: Intake and Output for Last 24 Hours 01/13/25 01/14/25 01/15/25 23:59 23:59 23:59 Intake Total 3335.21 / 3336.16 1684.09 / 1684.09 371.15 / 371.15 Output Total 950 / 950 500 / 700 550 / 550 Balance 2385.21 / 2386.16 1184.09 / 984.09 -178.85 / -178.85 Lab / Micro Data Attestation: I reviewed the patient's lab results. 01/15/25 02:07 01/15/25 02:07 Labs: Laboratory Results - last 24 hr 01/14/25 06:15: WBC 10.5, RBC 3.01 L, Hgb 9.4 L, Hct 30.4 L, MCV 101.0 H, MCH 31.2, MCHC 30.9 L, RDW Std Deviation 56.8 H, RDW Coeff of Ha 15.2 H, Plt Count 116 L, MPV 11.5, Neut % (Auto) Not Reportable, Absolute Neuts (auto) 9.2 H, A bsolute Lymphs (auto) 0.21 L, Total Counted 100, Neutrophils % (Manual) 84 H, Band Neutrophils % 4, Lymphocytes % (Manual) 2 L, Monocytes % (Manual) 1, Eosinophils % (Manual) 4, Metamyelocytes % 4 H, Myelocytes % 1 H, Platelet Estimate SLT DEC, RBC Morphology NORM C+C, Sodium 141, Potassium 3.4, Chloride 111 H, Carbon Dioxide 19.6 L, Anion Gap 11, BUN 31 H, Creatinine 1.40 H, Estim Creat Clear Calc 25.61 L, Est GFR (MDRD) Non-Af 36 L, BUN/Creatinine Ratio 21.9 H, Glucose 100 H, Calcium 6.8 L 01/15/25 02:07: WBC 9.8, RBC 3.23 L, Hgb 10.0 L, Hct 32.0 L, MCV 99.1 H, MCH 31.0, MCHC 31.3 L, RDW Std Deviation 55.0 H, RDW Coeff of Ha 15.1 H, Plt Count 129 L, MPV 11.1, Neut % (Auto) Not Reportable, Absolute Neuts (auto) 8.5 H, A bsolute Lymphs (auto) 0.69 L, Total Counted 100, Neutrophils % (Manual) 87 H, L ymphocytes % (Manual) 7 L, Monocytes % (Manual) 5, Metamyelocytes % 1, Platelet Estimate SLT DEC, RBC Morphology NORM C+C, Sodium 141, Potassium 3.7, Chloride 111 H, Carbon Dioxide 18.9 L, Anion Gap 12, BUN 27 H, Creatinine 1.39 H, Estim Creat Clear Calc 25.79 L, Est GFR (MDRD) Non-Af 37 L, BUN/Creatinine Ratio 19.1, Glucose 84, Calcium 7.5 L, Phosphorus 2.1 L, Magnesium 1.1 L, Total Bilirubin 0.31, AST 48 H, ALT 26, Alkaline Phosphatase 121 H, Total Protein 5.2 L, Albumin 2.7 L, Globulin 2.5, Albumin/Globulin Ratio 1.1 Micro: Microbiology 01/11/25 14:15 Urine, Clean Catch Urine Culture - Final Klebsiella pneumoniae sp pneum 01/11/25 22:14 Blood Culture (Wb) - Arm Left Blood Culture - Preliminary No growth in 48 hours. 01/11/25 22:04 Nasal Secretion MRSA (PCR) - Final 01/11/25 23:00 Mucosa - Nasopharyngeal SARS-CoV-2, Influenza & RSV (PCR) - Final 01/11/25 11:05 Stool Stool Occult Blood (ROYAL) - Final Occult Blood Positive Radiography Diagnostic Testing: Radiology Impression Wrist X-Ray 01/13/25 08:50 IMPRESSION: Interval casting material placement which decreases visualization. Acute/subacute left distal radial fracture as described. Reading Location: [facility] Rhythm Strip Rhythm Strip: Sinus Rhythm Rate: 90 Ectopy: None Physical Exam Const alert, oriented x3 and no apparent distress General Appearance: cooperative HEENT normocephalic and head/scalp atraumatic HEENT Narrative: Facial ecchymoses noted Eyes PERRL, EOMs intact bilaterally and conjunctivae normal Neck supple General: trachea midline Chest inspection of chest normal Resp normal respiratory effort Effort and Inspection: tachypneic Auscultation: diminished lung sounds; Negative for rales, rhonchi or wheezes Cardio regular rate and regular rhythm GI normal to inspection, nondistended, normoactive bowel sounds Extremity no clubbing, cyanosis or edema Extremity Narrative: Scattered ecchymoses on extremities Neuro oriented x3, CN's II-XII intact bilaterally and moves all extremities Psych cooperative and affect normal Charges/Coding Visit Charges Inpatient E&M: 30376 Subs Hosp L3
--- NOTE | 2025-01-15 07:52 | PN.HOSP_ITS ---
Reason for Visit Reason for Visit: Diagnoses Sepsis, unspecified organism (01/11/25) Fracture of unspecified carpal bone, left wrist, subsequent encounter for fracture with routine healing (01/11/25) Subjective Subjective Patient is an 89-year-old lady who presented following a fall. Patient was found to be hypotensive on admission. Subsequently diagnosed with septic shock secondary to combination of pneumonia as well as acute cystitis admitted to the intensive care unit for further evaluation and management Objective Data Objective Data Vital Signs: Vital Signs Temp Pulse Resp BP Pulse Ox O2 Del Method O2 Flow Rate 99.7 F H 110 H 34 H 137/59 H 94 Nasal Cannula 4 01/15/25 07:00 01/15/25 07:00 01/15/25 07:00 01/15/25 07:00 01/15/25 07:00 01/15/25 07:00 01/15/25 07:00 FiO2 98 01/14/25 03:20 Oxygen Flow Rate (L/min) 4 Oxygen Delivery Method Nasal Cannula Weight: 72.4 kg Body Mass Index (BMI) 29.2 Intake & Output: Intake and Output for Last 24 Hours 01/13/25 01/14/25 01/15/25 23:59 23:59 23:59 Intake Total 3335.21 / 3336.16 1684.09 / 1684.09 371.15 / 371.15 Output Total 950 / 950 500 / 700 550 / 550 Balance 2385.21 / 2386.16 1184.09 / 984.09 -178.85 / -178.85 Lab / Micro Data 01/15/25 02:07 01/15/25 02:07 Labs: Laboratory Results - last 24 hr 01/14/25 06:15: Absolute Neuts (auto) 9.2 H, Absolute Lymphs (auto) 0.21 L, Total Counted 100, Neutrophils % (Manual) 84 H, Band Neutrophils % 4, L ymphocytes % (Manual) 2 L, Monocytes % (Manual) 1, Eosinophils % (Manual) 4, M etamyelocytes % 4 H, Myelocytes % 1 H, Platelet Estimate SLT DEC, RBC Morphology NORM C+C 01/15/25 02:07: WBC 9.8, RBC 3.23 L, Hgb 10.0 L, Hct 32.0 L, MCV 99.1 H, MCH 31.0, MCHC 31.3 L, RDW Std Deviation 55.0 H, RDW Coeff of Ha 15.1 H, Plt Count 129 L, MPV 11.1, Neut % (Auto) Not Reportable, Absolute Neuts (auto) 8.5 H, A bsolute Lymphs (auto) 0.69 L, Total Counted 100, Neutrophils % (Manual) 87 H, L ymphocytes % (Manual) 7 L, Monocytes % (Manual) 5, Metamyelocytes % 1, Platelet Estimate SLT DEC, RBC Morphology NORM C+C, Sodium 141, Potassium 3.7, Chloride 111 H, Carbon Dioxide 18.9 L, Anion Gap 12, BUN 27 H, Creatinine 1.39 H, Estim Creat Clear Calc 25.79 L, Est GFR (MDRD) Non-Af 37 L, BUN/Creatinine Ratio 19.1, Glucose 84, Calcium 7.5 L, Phosphorus 2.1 L, Magnesium 1.1 L, Total Bilirubin 0.31, AST 48 H, ALT 26, Alkaline Phosphatase 121 H, Total Protein 5.2 L, Albumin 2.7 L, Globulin 2.5, Albumin/Globulin Ratio 1.1 Micro: Microbiology 01/11/25 14:15 Urine, Clean Catch Urine Culture - Final Klebsiella pneumoniae sp pneum 01/11/25 22:14 Blood Culture (Wb) - Arm Left Blood Culture - Preliminary No growth in 48 hours. 01/11/25 22:04 Nasal Secretion MRSA (PCR) - Final 01/11/25 23:00 Mucosa - Nasopharyngeal SARS-CoV-2, Influenza & RSV (PCR) - Final 01/11/25 11:05 Stool Stool Occult Blood (ROYAL) - Final Occult Blood Positive Rhythm Strip Rhythm Strip: Sinus Rhythm Rate: 90 Ectopy: None Physical Exam Narrative GENERAL: cooperative HEENT: Atraumatic; normocephalic EYES; Anicteric, Normal Conjunctiva NECK; supple, normal thyroid, RESPIRATORY: Diminished to auscultation CARDIOVASCULAR: Regular S1 S2, GI: soft, normoactive bowel sounds, : No Renal angle tenderness; EXTREMITIES: No edema, no clubbing, MUSCULOSKELETAL: Left wrist in a brace NEURO: Awake; no lateralizing signs. SKIN: No Rash PSYCH; Flat affect Assessment & Plan Assessment/Plan (1) Sepsis: PLAN: Plan Patient is an 89-year-old lady who presented following a fall. Patient was found to be hypotensive on admission. Subsequently diagnosed with septic shock secondary to combination of pneumonia as well as acute cystitis admitted to the intensive care unit for further evaluation and management 1. Septic shock ? Due to combination of acute cystitis as well as pneumonia. Treatment was initiated per protocol with IV fluid resuscitation, pressors after patient failed to respond to IV fluids broad-spectrum antibiotic therapy after cultures have been sent. Patient presents with weaned off on the morning of 01/15/2025 2. Pneumonia - Suspected to be secondary to streptococcal pneumonia, blood cultures were sent on admission so far negative to date. Patient has been managed with levofloxacin as well as supplemental oxygen titrated to keep saturation greater than 90 3. Acute cystitis with Klebsiella pneumonia ? Patient has been managed appropriately with levofloxacin 4.Recurrent C. difficile colitis ? Patient was restarted on p.o. vancomycin. Has had recurrence of her diarrhea. Repeat studies not performed since patient diagnosis was less than a month 5. Lower GI bleed ? Patient had recently undergone colonoscopy by Dr. Herndon on 01/01/2025 which demonstrated diverticulosis and nonbleeding external and internal hemorrhoids. 6. Anemia ? Secondary to acute on chronic disorder monitoring H&H and transfuse if patient becomes symptomatic or hemoglobin falls below 7 7. Acute kidney injury superimposed on chronic kidney disease stage III ? Suspected to be secondary to ATN from sepsis creatinine admission was 3.03 patient has responded to IV fluid creatinine as of 01/15/2025 was 1.39 8. Elevated troponin ? Secondary to demand ischemia patient presentation not consistent with ACS 9. Fall with left wrist fracture ? Patient was seen in consultation by orthopedic surgery manage with wrist immobilization as well as pain meds 10. Achalasia ? Per history patient is scheduled to be evaluated by Dr. Real with GI 11. Dyslipidemia ?Patient is on statin therapy, continued at home dose 12. Essential hypertension ? Patient antihypertensives held given patient low blood pressure 13. Peripheral vascular disease ? With known history of carotid artery stenosis patient is on clopidogrel as well as statin therapy 14. Chronic congestive heart failure ? With preserved ejection fraction patient remains euvolemic. Patient is on both furosemide as well as Aldactone held given her presenting 15. Diabetes mellitus type 2 ? Per history currently not on any antidiabetic medications 16. DVT prophylaxis ? Bilateral SCDs only given patient GI bleed Time spent in the patient's overall evaluation,decision-making process, review of diagnostic data, adjustment of management, discussion with other providers, nursing nursing and ancillary staff involved in patient's care documentation, 52 Minutes Charges/Coding Visit Charges Inpatient E&M: 59811 Subs Hosp L3
--- NOTE | 2025-01-15 10:38 | CASEMGMT ---
Social Work SW met with pt's dgt Dora and informed that TCU has accepted pt. Precert will be needed prior to discharge. Precert will be started when pt is closer to being ready for discharge. Dora is agreeable to dc plan. NERISSA Dawson
[2025-01-15] MEDS: Cholecalciferol (Vit D3) 125 MCG CAPSULE (5,000 UNITS) PO (10:50)
--- NOTE | 2025-01-15 12:00 | EGD_PTH ---
PATIENT: DICK ARTIS LOC: ICU U#:[id number] AGE/SX: 89/F ROOM: ICU02 RE01/11/[address]: Dr. Chuck Reynlods DO : 1935 BED: 1 DIS: 01/28/2025 SPEC #: [id number] RECD: 01/16/25 08:17 STATUS: ANGELA REQ #: [id number] PARTH: 01/15/25 12:[address]: Teodoro Real DEPT: SURGICAL PATHOLOGY RECD BY: Jonny Hanna ENTERED: 01/16/25 10:41 SP TYPE: EGD BIOPSY OTHR DR: MD Dr. Yonis Ji MD Dr. Bruce Arthur, MD Dr. Chitra Ganta, MD Dr. Derek Brown, DO Dr. David Kittoe, MD Dr. David P Myers, MD Dr. Edward Matheis, MD Dr. Gautam Baskaran, MD Dr. Yordanos Habtegebriel, MD Dr. Hemant Dand, MD Dr. Jose Ochoa, MD Dr. Justin Wong, MD Dr. Kimber Foust, MD Dr. Lamia Aljundi, MD Dr. Marisa Magana, MD Dr. Mark Tereletsky, DO Dr. Pritam Ghosh, MD Dr. Pavan Irukulla, MD Dr. Rodney Miller, MD Dr. Saad Farooqi, MD Dr. Sukhdeep Dhesi, DO Dr. Sujoy Gill, MD Dr. Soleyah Groves, MD Dr. Timothy Fernstrom, MD Dr. Guanakito العلي Dr., MD Tissues: A - Esophagus, NOS Procedures: Surgery Specimen Level IV HEADER OPERATION: EGD with Botox injection, foot bolus removable, biopsies PRE-OP DIAGNOSIS: Achalasia, dysphagia TISSUE SUBMITTED: A- Random esophagus biopsy MICROSCOPIC DIAGNOSIS A. Esophagus, random biopsy: - Degenerated skeletal muscle with focal fungal organisms, without inflammation, suggestive of foodstuff. - Recommend clinical/endoscopic correlation. MICROSCOPIC DESCRIPTION Slides are reviewed. GROSS DESCRIPTION A. Received in fixative is one container labeled with the patient's name and designated Random esophagus biopsy. The specimen consists of multiple irregular fragments of light figueroa soft tissue that in aggregate measure <0.1 to 0.3 cm. The specimen is totally submitted in one cassette. SC/mr 01/16/2025 CPT:14741
--- NOTE | 2025-01-15 13:57 | NURSING ---
To Endo via bed w/ OR staff
[2025-01-15] MEDS: Lactated Ringers 1,000 ML 15 ML IV (14:18)
--- NOTE | 2025-01-15 14:50 | PCM.PRE.AN2 ---
ASA Classification* ASA Classification ASA Classification: 4 Assessment & Plan Anesthesia* Anesthesia Assessment Anesthesia Assessment: Discussed sedation and/or anesthesia options, risks, benefits, and alternatives with patient/parents/legal guardian/POA. Questions invited. The patient/parents/legal guardian/POA seems to understand and agrees to proceed with anesthesia plan. Reviewed the physical assessment, medical history, allergy history and patient home medications list prior to surgery/procedure/anesthetic and documented any changes. Performed airway and anesthesia risk assessments. Anesthesia Type Anesthesia Type: MAC History Source History Obtained from:: Patient and Chart Anesthesia Focused Assessment* Temperature: 99.7 F Pulse Rate: 92 Blood Pressure: 104/56 Respiratory Rate: 28 Pulse Ox: 96 Oxygen Delivery Method: Nasal Cannula Oxygen Flow Rate (L/min): 2 Fraction of Inspired Oxygen (FIO2): 98 Airway Assessment Mouth opens: 2 cm Mallampati Score: II Teeth Condition: Dentures and Full Labs Anesthesia Preop lab: CBC WBC 9.8 K/mm3 (4.4-11.0) 01/15/25 02:07 01/15/25 RBC 3.23 M/mm3 (4.2-5.4) L 01/15/25 02:07 01/15/25 Hgb 10.0 g/dL (12.0-15.0) L 01/15/25 02:07 01/15/25 Hct 32.0 % (37-47) L 01/15/25 02:07 01/15/25 Plt Count 129 K/mm3 (150-450) L 01/15/25 02:07 01/15/25 CHEMISTRY Potassium 3.7 mmol/L (3.3-5.1) 01/15/25 02:07 01/15/25 Sodium 141 mmol/L (133-145) 01/15/25 02:07 01/15/25 Magnesium 1.1 mg/dL (1.5-2.2) L 01/15/25 02:07 01/15/25 Phosphorus 2.1 mg/dL (2.7-4.5) L 01/15/25 02:07 01/15/25 BUN 27 mg/dL (4-19) H 01/15/25 02:07 01/15/25 Creatinine 1.39 mg/dL (0.70-1.20) H 01/15/25 02:07 01/15/25 Glucose 84 mg/dL (70-99) 01/15/25 02:07 01/15/25 POC Glucose 82 mg/dL (74-106) 01/11/25 16:15 01/11/25 TSH 1.820 uIU/mL (0.358-3.740) 06/06/24 18:39 06/06/24 COAG PT 13.0 SECONDS (11.7-14.9) 12/17/24 04:56 12/17/24 Pre-Assessment Diagnosis/Proposed Procedure Planned Operative Procedure(s): EGD with botox Anesthesia History 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 When Was Last Pacemaker Check QUESTION #4 FULL TEXT: You/Your Family Experience fever (hyperthermia) with Anesthesia Last Oral Intake Last Oral intake: Last Oral Intake NPO since 08:30 01/11/25 16:29 Meds taken in AM with sips of No 01/11/25 16:29 water? Meds patient instructed to take am of surgery PONV PONV - narcotics investigator: PONV - narcotics investigator Female HX of Motion Sickness HX of N/V After Surgery Non-Smoker Duration of Surgery greater than 60 minutes Number of Risk Factors PONV Score Height & Weight Height & Weight: Anesthesia: Height & Weight Height 5 ft 2 in 01/14/25 10:32 Weight: 72.4 kg 01/15/25 05:20 Body Mass Index (BMI) 29.2 01/15/25 05:20 Respiratory Assessment Respiratory Assessment - narcotics investigator: Respiratory Tract Infection Hx - narcotics investigator Hx Respiratory Tract Infection No 12/27/24 15:28 STOP Sleep Apnea STOP Sleep Apnea - narcotics investigator: STOP Sleep Apnea - narcotics investigator Hx Hypertension Yes 01/13/25 14:23 Hx Sleep Apnea No 01/11/25 16:10 CPAP No 01/11/25 16:10 BIPAP No 01/11/25 16:10 Do you snore loudly (louder No 01/11/25 16:10 than talking or can be heard Do you often feel tired/ No 01/11/25 16:10 fatigued/ sleepy during daytime? Has anyone observed you stop No 01/11/25 16:10 breathing during sleep? STOP Results Negative 01/11/25 16:10 QUESTION #5 FULL TEXT : Do you snore loudly (louder than talking or can be heard through closed doors)? Tobacco Use History Tobacco Use History - narcotics investigator: Tobacco Use History - narcotics investigator Tobacco Use Smoking Status Former smoker 01/11/25 16:10 Hx Tobacco Use No 01/11/25 16:10 Years Smoking Packs Smoked per Day Smoking Cessation Date was Yes - quit smoking within 15 01/11/25 16:10 within the last 15 years years Hx Smoking Cessation Date 07/18/14 01/11/25 16:10 Hx Smoking Cessation No 01/11/25 16:10 Counseling Hematologic Medial History Hematologic Hx - narcotics investigator: Hematologic Medical Hx - transmitter operator Hx of Blood Transfusion Yes 01/11/25 16:10 Hx of Transfusion in last 3 No 01/11/25 16:10 Months Date of Last Transfusion (if within last 3 months) Ever experience any problems No 01/11/25 16:10 with transfusion(s)? Specify any problems Hx of Preganancy in last 3 N/A 01/11/25 16:10 Months Nurse Filling Out Transfusion [id number] 01/11/25 16:10 & Questions: Date: 01/11/25 01/11/25 16:10 Time: 18:02 01/11/25 16:10 Patient unable to answer at this time (ie. confused, unrespo /Reproduction History /Reproductive History - narcotics investigator: /Reproductive Hx- narcotics investigator Hx Now Gestational Age (in weeks): EDC: Hx Hx Para Hx Section SAB No 12/27/24 15:28 Active Medications Active Medications: Current Medications Generic Name Dose Route Start Last Admin Trade Name Freq PRN Reason Stop Dose Admin Acetaminophen 1,000 mg 01/11/25 16:03 01/14/25 14:05 Acetaminophen 500 Mg Tablet PO 1,000 mg Q6H PRN Administration Pain Score 1-10 Albuterol/Ipratropium 3 ml 01/11/25 21:45 01/15/25 11:26 Ipratropium/Albuterol Sulfate 3 Ml Ampul.Neb INHALATION 3 ml Q4H.RT MUSA Administration Atorvastatin Calcium 40 mg 01/11/25 22:00 01/14/25 21:18 Atorvastatin Calcium 40 Mg Tablet PO Not Given QHS MUSA Budesonide 0.5 mg 01/14/25 12:45 01/14/25 19:07 Budesonide Respules 0.5 Mg/2 Ml Ampul.Neb. INHALATION 0.5 mg BID.RT MUSA Administration Cholecalciferol 125 mcg 01/12/25 10:00 01/15/25 10:50 Cholecalciferol (Vit D3) 125 Mcg Capsule (5,000 Units) PO 125 mcg DAILY MUSA Administration Clopidogrel Bisulfate 75 mg 01/12/25 10:00 01/15/25 10:50 Clopidogrel Bisulfate 75 Mg Tablet PO 75 mg DAILY MUSA Administration Duloxetine HCl 60 mg 01/12/25 10:00 01/15/25 10:49 Duloxetine Hcl 60 Mg Capsule PO 60 mg DAILY MUSA Administration Sodium Chloride 1,000 mls @ 15 mls/hr 01/11/25 16:30 01/14/25 08:36 IV Infused .Q48H MUSA Infusion Lactated Ringer's 1,000 mls @ 15 mls/hr 01/15/25 14:15 01/15/25 14:18 IV 15 mls/hr .Q48H MUSA Administration Levofloxacin 250 mg 01/15/25 06:00 01/15/25 05:28 Levofloxacin 250 Mg Tablet PO 250 mg DAILY@0600 MUSA Administration Midodrine 10 mg 01/13/25 10:00 01/15/25 12:48 Midodrine Hcl 5 Mg Tablet PO 10 mg TIDCM MUSA Administration Ondansetron HCl 4 mg 01/11/25 16:03 Ondansetron 4 Mg/2 Ml Vial IV Q8H PRN PRN NAUSEA/VOMITING Oxycodone HCl 5 - 10 mg 01/13/25 16:23 01/14/25 16:01 Oxycodone 5 Mg Tablet PO 10 mg Q4H PRN PRN Administration Pain Score 1-10 Pantoprazole Sodium 40 mg 01/11/25 22:00 01/15/25 10:50 Pantoprazole Sodium 40 Mg Tablet PO 40 mg BID MUSA Administration Polysaccharide Iron Complex 150 mg 01/12/25 10:00 01/15/25 10:49 Iron Polysaccharide Complex 150 Mg Capsule PO 150 mg DAILY MUSA Administration Pramipexole Dihydrochloride 1.5 mg 01/11/25 22:00 01/14/25 21:18 Pramipexole Di-Hcl 0.5 Mg Tablet PO Not Given QHS MUSA Sodium Chloride 10 - 40 ml 01/11/25 16:11 01/15/25 03:59 0.9% Saline Lock 10 Ml Syringe IV 20 ml UD PRN Administration SALINE FLUSH Tizanidine HCl 2 mg 01/13/25 17:13 01/15/25 11:05 Tizanidine Hcl 2 Mg Tablet PO 2 mg TID PRN Administration MUSCLE SPASM Vancomycin HCl 125 mg 01/11/25 18:00 01/15/25 12:44 Vancomycin 125 Mg/5 Ml Susp Po.Syringe PO 125 mg Q6 MUSA Administration PFSH Medical History GI (gastrointestinal bleed) Rash Back pain Cancer Thyroid disease Ambulates with cane History of renal disease TIA (transient ischemic attack) Acute diverticulitis Wears glasses Wears dentures Arthritis Low iron Anemia High cholesterol Migraine headache Restless legs Difficulty chewing History of diverticulitis Heartburn Gastric reflux Former smoker On home oxygen therapy Shortness of breath on exertion Chronic cough History of edema History of echocardiogram History of stress test Cardiology follow-up encounter Hypertension Chronic hypoxic respiratory failure History of diabetes mellitus History of hypertension Diverticulitis History of chronic heart failure History of COPD COPD (chronic obstructive pulmonary disease) Anemia Chronic heart failure with preserved ejection fraction (HFpEF) Hyperlipidemia Right lumbar radiculopathy CKD (chronic kidney disease), stage III Hypertension Chronic kidney disease PAD (peripheral artery disease) Renal cyst History of TIA (transient ischemic attack) Bilateral carotid artery stenosis Claudication RLS (restless legs syndrome) Diverticulosis TIA (transient ischemic attack) Vertigo Leg edema Dyslipidemia Home Medications ?Medication ?Instructions ?Recorded ?Last Taken ?Type atorvastatin 40 mg tablet 40 mg PO QHS cholesterol 02/22/16 11/27/24 History clopidogrel 75 mg tablet 75 mg PO DAILY BLOOD THINNER 02/22/16 12/26/24 History albuterol sulfate 90 mcg/actuation 2 puff inhalation Q4H PRN 03/16/18 09/27/24 History aerosol inhaler shortness of breath or wheezing pramipexole 1.5 mg tablet 1.5 mg PO QHS restless leg syndrome 08/18/23 01/10/25 History polysaccharide iron complex 150 mg 150 mg PO DAILY supplement 30 days 10/12/23 12/26/24 Rx iron capsule (Ferrex) #30 caps acetaminophen 500 mg tablet 1,000 mg PO Q6H PRN pain 02/14/24 01/10/25 History arformoterol 15 mcg/2 mL solution 15 mcg inhalation BID breathing 02/14/24 01/01/25 History for nebulization spironolactone 25 mg tablet 25 mg PO DAILY diuretic 02/14/24 11/28/24 History cholecalciferol (vitamin D3) 125 125 mcg PO DAILY 30 days #30 caps 06/08/24 11/28/24 Rx mcg (5,000 unit) capsule furosemide 40 mg tablet 40 mg PO BID FLUID RETENTION 09/24/24 11/28/24 History pantoprazole 40 mg tablet,delayed 40 mg PO BID reflux 09/24/24 01/01/25 History release budesonide 0.5 mg/2 mL suspension 0.5 mg inhalation BID breathing 11/28/24 01/10/25 History for nebulization carvedilol 25 mg tablet 25 mg PO BID 11/28/24 01/01/25 History magnesium oxide 400 mg PO DAILY 11/28/24 11/28/24 History potassium chloride 20 mEq/15 mL 20 meq PO DAILY 11/28/24 11/28/24 History oral liquid duloxetine 60 mg capsule,delayed 60 mg PO DAILY 12/27/24 01/01/25 History release oxycodone 5 mg tablet 5 mg PO Q6H PRN pain 3 days #12 01/07/25 01/11/25 Rx tabs Allergy/AdvReac Type Severity Reaction Status Date / Time lisinopril Allergy edema Verified 01/11/25 10:14 aspirin AdvReac Upset Verified 01/11/25 10:14 Stomach Family History Mother Heart disease Surgical History History of thyroid surgery History of carotid angioplasty History of kidney stones History of basal cell carcinoma excision History of total hysterectomy Social History household members: none housing: house Smoking Status: Former smoker how long ago did patient quit smokin years ago alcohol intake: current alcohol intake frequency: holidays/special occasions only details: rare substance use type: does not use caffeine: Yes Type: coffee Number of servings: 1 Review of Systems (Anesthesia) ROS Narrative System reviewed and no additional complaints, except as documented. Physical Exam Const alert HEENT HEENT Narrative: multiple bruises throughout face. minor hematoma above right eyebrow Resp Resp Narrative: on oxygen via nasal cannula Auscultation: crackles and wheezes Cardio regular rate
--- NOTE | 2025-01-15 14:59 | PCM.PN.BLA ---
Progress Note I was asked see the patient due to esophageal dysphagia. She has a history of achalasia. She did undergo EGD with Botox placement approximately 3 to 4 months ago. At this time she is not able to get down pills or solid foods. She also complains of some liquid food dysphagia. Physical Exam Narrative GENERAL: cooperative HEENT: Atraumatic; normocephalic EYES; Anicteric, Normal Conjunctiva NECK; supple, normal thyroid, RESPIRATORY: Diminished to auscultation CARDIOVASCULAR: Regular S1 S2, GI: soft, normoactive bowel sounds, : No Renal angle tenderness; EXTREMITIES: No edema, no clubbing, MUSCULOSKELETAL: Left wrist in a brace NEURO: Awake; no lateralizing signs. SKIN: No Rash PSYCH; Flat affect Assessment & Plan Assessment/Plan (1) Sepsis: (2) Achalasia: (3) GI bleed: PLAN: Plan Patient is an 89-year-old lady who presented following a fall. She has a history of recently diagnosed C. difficile and was discovered to have pneumonia and acute cystitis. She is having worsening esophageal dysphagia. She will undergo an upper endoscopy evaluate upper GI tract. She was explained alternatives, risk and benefits clinical withstanding bleeding, infection, steps, perforation, need for emergent . She will have an ASA of 3. Visit Charges Inpatient E&M: 06837 Subs Hosp L2
[2025-01-15] MEDS: 0.9% Normal Saline (Pres. free 10 ML Vial (15:42)
--- NOTE | 2025-01-15 17:28 | OP.CCLET_ITS ---
01/15/2025 Viktoriya Lamb [address] [place] [address] Re : Upper GI endoscopy procedure for Chanel Rousseau Dear Dr. Lamb This procedure was performed on Wednesday, January 15, 2025. My impressions and recommendations are as follows: Impressions : - Food in the esophagus. Removal was successful. - Mildly severe erosive esophagitis with no bleeding. Biopsied. - Severe Schatzki ring. Dilated. - Abnormal esophageal motility, established achalasia. Injected with botulinum toxin. - No gross lesions in the entire stomach. - Normal examined duodenum. Recommendations : - Discharge patient to home. - Resume previous diet. - Continue present medications. - Await pathology results. My findings are described in the full procedure note, which is enclosed. If I can be of further assistance, please feel free to contact me at . Sincerely, Teodoro Real, 01/15/2025 5:27:40 PM This report has been signed electronically.
--- NOTE | 2025-01-15 17:28 | OP.EGD_ITS ---
Patient Name: Chanel Rousseau Procedure Date: 01/15/2025 3:01 PM Date of : 1935 Age: 89 Procedure: Upper GI endoscopy Indications: Dysphagia Providers: Teodoro Real DO Referring MD: Chuck Reynolds Medicines: Monitored Anesthesia Care Patient Profile: This is an 89 year old female. Refer to note in patient chart for documentation of history and physical. Patient has symptoms of dysphagia with both liquids and solids. Complications: No immediate complications. Procedure: Pre-Anesthesia Assessment: - Prior to the procedure, a History and Physical was performed, and patient medications and allergies were reviewed. The patient is competent. The risks and benefits of the procedure and the sedation options and risks were discussed with the patient. All questions were answered and informed consent was obtained. Patient identification and proposed procedure were verified by the physician in the pre-procedure area. Mental Status Examination: alert and oriented. Airway Examination: normal oropharyngeal airway and neck mobility. Respiratory Examination: clear to auscultation. CV Examination: normal. Prophylactic Antibiotics: The patient does not require prophylactic antibiotics. Prior Anticoagulants: The patient has taken no anticoagulant or antiplatelet agents. ASA Grade Assessment: II - A patient with mild systemic disease. After reviewing the risks and benefits, the patient was deemed in satisfactory condition to undergo the procedure. The anesthesia plan was to use moderate sedation / analgesia (conscious sedation). Immediately prior to administration of medications, the patient was re-assessed for adequacy to receive sedatives. The heart rate, respiratory rate, oxygen saturations, blood pressure, adequacy of pulmonary ventilation, and response to care were monitored throughout the procedure. The physical status of the patient was re-assessed after the procedure. After obtaining informed consent, the endoscope was passed under direct vision. Throughout the procedure, the patient's blood pressure, pulse, and oxygen saturations were monitored continuously. The Endoscope was introduced through the mouth, and advanced to the second part of duodenum. The upper GI endoscopy was accomplished without difficulty. The patient tolerated the procedure well. Scope In: 3:27:34 PM Scope Out: 5:15:38 PM Total Procedure Duration Time 1 hour 48 minutes 4 seconds Findings: Food was found in the entire esophagus. Removal was accomplished with a jumbo forceps and Reza net. Verification of patient identification for the specimen was done. Estimated blood loss was minimal. Mildly severe esophagitis with no bleeding was found 35 to 38 cm from the incisors. Biopsies were taken with a cold forceps for histology. Verification of patient identification for the specimen was done. Estimated blood loss was minimal. A severe Schatzki ring was found at the gastroesophageal junction. A TTS dilator was passed through the scope. Dilation with a 15-16.5-18 mm balloon dilator was performed to 18 mm. The dilation site was examined and showed mild improvement in luminal narrowing. Estimated blood loss was minimal. Abnormal motility was noted in the lower third of the esophagus. The cricopharyngeus was normal. There are extra peristaltic waves in the esophageal body. The distal esophagus/lower esophageal sphincter is spastic, but gives up passage to the endoscope. Area was successfully injected with 100 units botulinum toxin. No gross lesions were noted in the entire examined stomach. The examined duodenum was normal. Impression: - Food in the esophagus. Removal was successful. - Mildly severe erosive esophagitis with no bleeding. Biopsied. - Severe Schatzki ring. Dilated. - Abnormal esophageal motility, established achalasia. Injected with botulinum toxin. - No gross lesions in the entire stomach. - Normal examined duodenum. Recommendation: - Discharge patient to home. - Resume previous diet. - Continue present medications. - Await pathology results. Procedure Code(s): --- Professional --- 07221, Esophagogastroduodenoscopy, flexible, transoral; with removal of foreign body(s) 25630, Esophagogastroduodenoscopy, flexible, transoral; with transendoscopic balloon dilation of esophagus (less than 30 mm diameter) 44412, 59,51, Esophagogastroduodenoscopy, flexible, transoral; with biopsy, single or multiple 09725, 59, Esophagogastroduodenoscopy, flexible, transoral; with directed submucosal injection(s), any substance CPT copyright 2021 [employer]. All rights reserved. The codes documented in this report are preliminary and upon industrial sweeper cleaner review may be revised to meet current compliance requirements. Teodoro Real DO 01/15/2025 5:27:40 PM This report has been signed electronically. Number of Addenda: 0 Note Initiated On: 01/15/2025 3:01 PM
[2025-01-15 17:43] LABS: CPK Total, Creatine Kinase 106 U/L (24-195); Triglycerides 192 mg/dL
[2025-01-15] MEDS: 0.9% Normal Saline (1000mL) 1,000 ML 999 ML IV ×3 (17:44→19:46)
[2025-01-15] MEDS: Propofol 10MG/Ml 1,000 MG/100 ML Bottle 4.3 MG CONT INF (17:45)
--- NOTE | 2025-01-15 18:00 | NURSING ---
Pt attempting to pull at ETT. Unable to re-direct at this time. Soft wrist restraints applied loosely for safety. Will continue monitor for removal
--- NOTE | 2025-01-15 18:08 | PCM.POST.ANE ---
Anesthesia: Postop Eval I Current Vital Signs Temperature: 97.3 F Pulse Rate: 99 Blood Pressure: 117/53 Respiratory Rate: 16 (on ventilator) Pulse Ox: 98 Oxygen Delivery Method: Mechanical Ventilator Assessment Airway patent: Yes Spontaneous unlabored respirations: No Mental status: Unresponsive (sedated) nausea: No Vomiting: No Anesthesia Complication: No Fluid Hydration Crystalloid volume administer (ml): 500 Total IV fluid infused: 500 Progress Note Post-operative progress note: Patient required intubation for procedure. With MAC/sedation, patient was not tolerating sedation without significant desaturations. ETCO2 was also rising, and noted accessory muscle use. Discussed with Dr. Real that the patient likely would not tolerate an EGD with sedation and that she would require intubation if they wanted to proceed further with the EGD. Decision was made to proceed with intubation for EGD. Patient was preoxygenated and tolerated the intubation well. We immediately suctioned her endotracheal tube and were able to get some thick secretions from the endotracheal tube. Decision was made at the end of the procedure to keep the patient intubated given concern for airway protection and likelihood for aspiration versus microaspiration for the last 2 days given the significant amount of esophageal impaction that was noted on the EGD. Handoff was given to the ICU team at bedside including the nurses and DELIA. I had a phone call discussion with Dr. Delvalle discussing the patient. Anesthesia document: Postop Eval 1 completed: Yes
--- NOTE | 2025-01-15 18:11 | RAD_ITS ---
PROCEDURE: CXR FOR LINE PLACEMENT 01/15/2025 REASON FOR EXAM: ETT AND OG PLACEMENT VERIFICATION TECHNIQUE: CXR FOR LINE PLACEMENT COMPARISON: 01/12/2025 CT. FINDINGS: Bibasilar opacities which may represent infiltrate or atelectasis. Small to moderate bilateral pleural effusions. The heart is partially obscured. Right PICC terminates at the superior cavoatrial junction. Orogastric tube terminates within the gastric fundus. Endotracheal tube terminates 3 cm above the sofia. RAD/CXR for Line Placement IMPRESSION: Tubes and lines as above. Pulmonary findings as above. Reading Location: [place] [address]
--- NOTE | 2025-01-15 18:13 | PCM.POSTANE2 ---
Anesthesia Postop Eval I Sum Postop Eval Completion status Anesthesia document: Postop Eval 1 completed: Yes Anesthesia Postop Eval I Summary Anesthesia Postop Eval I Summary: Anesthesia Postop Eval I: Assessment Summary Airway patent Yes 01/15/25 18:13 Spontaneous unlabored No 01/15/25 18:13 respirations Mental status Unresponsive - 01/15/25 18:13 sedated nausea No 01/15/25 18:13 Vomiting No 01/15/25 18:13 Anesthesia Postop Eval I: Fluid Summary Crystalloid volume administer 500 01/15/25 18:13 (ml) Colloids volume administered ( ml) Blood Product volume administered (ml) Total IV fluid infused 500 01/15/25 18:13 Anesthesia Postop Eval I: Summary Notes Anesthesia Complication No 01/15/25 18:13 Anesthesia Complication Comment: Post-operative progress note Patient required 01/15/25 18:13 intubation for procedure. With MAC/sedation, patient was not tolerating sedation without significant desaturations. ETCO2 was also rising, and noted accessory muscle use. Discussed with Dr. Real that the patient likely would not tolerate an EGD with sedation and that she would require intubation if they wanted to proceed further with the EGD. Decision was made to proceed with intubation for EGD . Patient was preoxygenated and tolerated the intubation well. We immediately suctioned her endotracheal tube and were able to get some thick secretions from the endotracheal tube. Decision was made at the end of the procedure to keep the patient intubated given concern for airway protection and likelihood for aspiration versus microaspiration for the last 2 days given the significant amount of esophageal impaction that was noted on the EGD. Handoff was given to the ICU team at bedside including the nurses and DELIA. I had a phone call discussion with Dr Lissa Delvalle discussing the patient. Anesthesia: Postop Eval II Evaluation Mental status: Unresponsive (Intubated) Pain Level: 0 (Unable to obtain as patient is intubated and sedated) nausea: No Vomiting: No Progress Note Post-operative progress note: Patient was brought to the intensive care unit with full ASA monitors. She was hemodynamically stable on transport. She was kept intubated for transport and ventilated with a bag mask. We had no episodes of significant desaturation and her saturations remained above 90% throughout transport. Signout was given to the ICU team and I had a phone call discussion with Dr. Delvalle including recommendation for bedside bronchoscopy. I also had a discussion with the patient's family regarding postoperative ventilation. Complications Anesthesia Complication: No
[2025-01-15] MEDS: Norepinephrine 8 MG in 0.9% Normal Saline (250mL Bag) 242 ML 9.4 MG CONT INF (19:10)
[2025-01-15] MEDS: Albuterol 2.5 MG/3 ML VIAL.NEB. INHALATION (19:20)
[2025-01-15] MEDS: Budesonide Respules 0.5 MG/2 ML AMPUL.NEB. INHALATION (19:20)
[2025-01-15] MEDS: fentaNYL drip 100 ML 2.5 MCG CONT INF (19:48)
[2025-01-15 19:57] LABS: Allen Test Positive; Base Excess -12 mmol/L (-2 to +2); FI02 50.0; PEEP 5; PO2 77 mmHG (75-100); RR 12; SITE R Radial; SO2 91 % (95-99); Time Given 19:54:08
--- NOTE | 2025-01-15 20:04 | PCM.HOSP.N ---
Hospitalist Note Notified by respiratory therapy that ABG resulted with pH 7.16, pCO2 47, PO2 77. Bicarb 16, though notably bicarb on ABG may be inaccurate. Given patient's clinical condition, seems most consistent with a metabolic acidosis. Will run bicarb drip at 150 ml/hr for 5 hours then repeat ABG after that.
[2025-01-15] MEDS: Sodium Bicarbonate 50 MEQ in Dextrose 5%-Water (1000mL Bag) 1,000 ML 150 MEQ IV (20:25)
[2025-01-15] MEDS: Chlorhexidine 15 ML PO (21:30)
[2025-01-15] MEDS: Pantoprazole Sodium 40 MG in 0.9% Normal Saline (100mL MB+) 100 ML 300 MG IV (21:30)
[2025-01-15] MEDS: Piperacil/Tazobactam 3.375 GM in 0.9% Normal Saline (50mL MB+) 50 ML IV (21:57)
[2025-01-15] MEDS: Propofol 10MG/Ml 1,000 MG/100 ML Bottle 15.2 MG CONT INF (23:36)
[2025-01-15] MEDS: Vancomycin 125 MG/5 ML Susp PO.SYRINGE GT (23:36)
[2025-01-16] VITALS (51 sets, daily range): BP systolic 83–138; BP diastolic 40–70; PULSE 76–113; RESP 12–23; TEMP 36.8–37.9; O2SAT 90–97; BMI 31.7
[2025-01-16 04:56] LABS: Hematocrit 29.6 % (37-47); Hemoglobin 9.4 g/dL (12.0-15.0); Immature Granulocytes Count 0.470 X10^3/uL (0.0-0.0); Mean Corp Hgb Conc 31.8 g/dL (32-36); Mean Corpuscular Volume 99.3 fL (81-99); Mean Platelet Vol. 10.6 fl (6.2-12.0); NRBC Flagged by Analyzer 0.2 % (0-5); Platelet Count 108 K/mm3 (150-450); RBC Distribution Width CV 15.7 % (11.6-14.6); RBC Distribution Width SD 56.2 fl (35.1-43.9); Red Blood Count 2.98 M/mm3 (4.2-5.4); White Blood Count 11.3 K/mm3 (4.4-11.0)
[2025-01-16 05:20] LABS: Allen Test Positive; Base Excess -7 mmol/L (-2 to +2); FI02 30.0; PEEP 5; PO2 55 mmHG (75-100); RR 12; SITE R Radial; SO2 84 % (95-99)
[2025-01-16 05:26] LABS: Anion Gap 13 (5-15); BUN 19 mg/dL (4-19); BUN/Creat Ratio 14.7 RATIO (10-20); Calcium,Total 7.0 mg/dL (7.6-11.0); Carbon Dioxide 17.4 mmol/L (21.0-32.0); Chloride 111 mmol/L (98-108); Estimated Creatinine Clearance 29.64 ml/min (50-250); Glucose 125 mg/dL (70-99); Magnesium 1.4 mg/dL (1.5-2.2); Potassium 3.3 mmol/L (3.3-5.1)
[2025-01-16] MEDS: Piperacil/Tazobactam 3.375 GM in 0.9% Normal Saline (50mL MB+) 50 ML IV ×3 (06:05→21:45)
[2025-01-16] MEDS: Propofol 10MG/Ml 1,000 MG/100 ML Bottle 13 MG CONT INF ×3 (06:15→18:58)
[2025-01-16] MEDS: TITRATION PARAMETER CHANGE 1 EACH IV (06:37)
[2025-01-16] MEDS: 0.9% Saline Lock 10 ML Syringe IV (06:37)
[2025-01-16] MEDS: Vancomycin 125 MG/5 ML Susp PO.SYRINGE GT ×3 (06:37→17:22)
--- NOTE | 2025-01-16 06:37 | PCM.PN.INT ---
Assessment & Plan Assessment/Plan (1) Sepsis: PLAN: Plan RECOMMENDATIONS: 1. Continue assist-control mode mechanical ventilation. Continue to wean FiO2 and PEEP as tolerated. 2. Continue antimicrobials, pending culture results. 3. Continue Levophed to maintain a mean arterial pressure at or above 65 mmHg. 4. Check BNP and procalcitonin. 5. Obtain follow-up ABG tomorrow morning. 6. Continue fentanyl and propofol for sedation. 7. Continue scheduled bronchodilators. IMPRESSIONS: 1. Septic shock Clinical concern for underlying urinary tract source of infection +/- aspiration pneumonia. The patient ultimately developed fluid refractory hypotension, which required the initiation of vasopressor support. Plan to continue with antimicrobial therapy along with Levophed to maintain a mean arterial pressure at or above 65 mmHg. 2. Acute hypoxemic respiratory failure The patient has a known history of achalasia and was taken for endoscopic evaluation on January 15, at which time, the patient decompensated from a respiratory perspective and was intubated. She was noted to have significant food in the esophagus, with concern for an acute aspiration event leading to her respiratory decompensation. At this time, the patient will be continued on assist-control mode mechanical ventilation. Ventilator parameters have been augmented. Continue to wean FiO2 and PEEP to maintain saturations at or above 90%. Antibiotics will be continued to cover for aspiration, while awaiting sputum results. Continue current sedation regimen with propofol and fentanyl. 3. Acute kidney injury Likely prerenal in etiology. Creatinine has improved with volume expansion. Continue to monitor urine output. No current indication for renal replacement therapy. 4. History of achalasia The patient is status post endoscopic evaluation on January 15, during which time, the patient was noted to have a significant amount of food in the entire esophagus. A severe Schatzki ring was noted which was dilated. Botox was also injected. Continue current medical management per gastroenterology recommendations. 5. Recent left wrist fracture/recent C. difficile colitis on vancomycin/anemia/peripheral arterial disease/hypothyroidism Complicates care, management, recovery and prognosis. Continue supportive measures as noted above. TIME: 36 minutes of critical care time, independent of procedures, was spent addressing the patient's septic shock, acute hypoxemic respiratory failure, acute kidney injury, review of all data and collaboration with care team. Subjective Subjective The patient was seen and examined at the bedside this morning. Events from the last 24 hours have been reviewed. Yesterday afternoon, due to a history of esophageal dysphagia secondary to achalasia, the patient was taken by gastroenterology to undergo EGD. During that procedure, the patient was noted to have food throughout the entire esophagus along with a severe Schatzki ring, which was dilated. Botulinum toxin was also administered. As a consequence of the aforementioned, the patient apparently experienced an acute aspiration event and was subsequently intubated by anesthesia. The patient is currently sedated on propofol and fentanyl. The patient did receive sodium bicarb overnight secondary to an underlying metabolic acidosis. White blood cell count this morning was noted to be 11,000. Hemoglobin is stable at 9.4 g/dL. Platelet count is low at 108,000. ABG was notable for a pH of 7.28 with a pCO2 of 42 and pO2 of 55. Creatinine is stable at 1.3. Bicarbonate is low at 18. The patient is currently documented to be overall net +13.5 L for the hospitalization. Objective Data Objective Data The patient's most recent lab work, culture data and imaging studies have all been personally reviewed. Surface echocardiogram demonstrated mild concentric LVH with stage I diastolic dysfunction. Urine culture was positive for Klebsiella pneumonia. Sputum culture is currently pending. Vital Signs: Vital Signs Temp Pulse Resp BP Pulse Ox O2 Del Method O2 Flow Rate 98.3 F 103 H 15 97/57 L 91 Mechanical Ventilator 2 01/16/25 05:00 01/16/25 05:00 01/16/25 05:00 01/16/25 05:00 01/16/25 05:00 01/16/25 05:00 01/15/25 14:52 FiO2 30 01/16/25 05:00 Oxygen Flow Rate (L/min) 2 Oxygen Delivery Method Mechanical Ventilator Weight: 173 lb 11.588 oz Body Mass Index (BMI) 31.7 Intake & Output: Intake and Output for Last 24 Hours 01/14/25 01/15/25 01/16/25 23:59 23:59 23:59 Intake Total 1684.09 / 1684.09 3251.17 / 3265.24 1246.30 / 1246.30 Output Total 500 / 700 1251 / 1251 Balance 1184.09 / 984.09 1999. 1246.30 / 1246.30 Lab / Micro Data Attestation: I reviewed the patient's lab results. 01/16/25 04:30 01/16/25 04:30 Labs: Laboratory Results - last 24 hr 01/15/25 02:07: Total Creatine Kinase 106, Triglycerides 192 01/15/25 17:50: Lactic Acid < 1.0 01/16/25 04:30: WBC 11.3 H, RBC 2.98 L, Hgb 9.4 L, Hct 29.6 L, MCV 99.3 H, MCH 31.5, MCHC 31.8 L, RDW Std Deviation 56.2 H, RDW Coeff of Ha 15.7 H, Plt Count 108 L, MPV 10.6, Immature Gran % (Auto) 4.200 H, Neut % (Auto) 80.7 H, Lymph % (Auto) 7.3 L, [place] % (Auto) 7.0, Eos % (Auto) 0.4, Baso % (Auto) 0.4, Absolute Neuts (auto) 9.1 H, Absolute Lymphs (auto) 0.83, Nucleated RBC % 0.2, Sodium 142, Potassium 3.3, Chloride 111 H, Carbon Dioxide 17.4 L, Anion Gap 13, BUN 19, Creatinine 1.30 H, Estim Creat Clear Calc 29.64 L, Est GFR (MDRD) Non-Af 40 L, BUN/Creatinine Ratio 14.7, Glucose 125 H, Calcium 7.0 L, Phosphorus 2.9, Magnesium 1.4 L Micro: Microbiology 01/11/25 14:15 Urine, Clean Catch Urine Culture - Final Klebsiella pneumoniae sp pneum 01/11/25 22:14 Blood Culture (Wb) - Arm Left Blood Culture - Preliminary No growth in 48 hours. 01/11/25 22:04 Nasal Secretion MRSA (PCR) - Final 01/11/25 23:00 Mucosa - Nasopharyngeal SARS-CoV-2, Influenza & RSV (PCR) - Final 01/11/25 11:05 Stool Stool Occult Blood (ROYAL) - Final Occult Blood Positive ABG Data ABG results: ABG 01/15/25 01/16/25 19:51 05:16 Specimen Type ART ART Sample Site R Radial R Radial pH 7.16 L* 7.28 L Bicarbonate Actual 16.7 L 20.0 L Total CO2 18 21 Base Excess -12 L -7 L O2 Saturation 91 L 84 L O2 % 50.0 30.0 ABG pCO2 47.4 H 42.7 ABG pO2 77 55 L Mj Test Positive Positive Respiration Rate 12 12 O2 Delivery Device Adult Vent Adult Vent Vent Mode AC AC Tidal Volume 450.0 450.0 POC PEEP 5 5 Crit Call To/Read Back Yes Blood Gas Notified Whom Dr. Mcleod Blood Gas Notified Time 19:54:08 Radiography Diagnostic Testing: Radiology Impression Chest X-Ray 01/15/25 18:11 IMPRESSION: Tubes and lines as above. Pulmonary findings as above. Reading Location: [id number] Rhythm Strip Rhythm Strip: Sinus Rhythm Rate: 90 Ectopy: None Physical Exam Const Constitutional Narrative: Intubated, sedated and mechanically ventilated. No ventilator dyssynchrony noted. HEENT normocephalic HEENT Narrative: Facial ecchymoses noted Mouth: endotracheal tube in place and OG tube in place Eyes EOMs intact bilaterally and conjunctivae normal Neck supple General: trachea midline Chest inspection of chest normal Resp normal respiratory effort Auscultation: diminished lung sounds; Negative for rales, rhonchi or wheezes Cardio regular rate and regular rhythm GI normal to inspection, nondistended, normoactive bowel sounds Extremity no clubbing, cyanosis or edema Extremity Narrative: Scattered ecchymoses on extremities Neuro Sensorium / Orientation: sedated on vent Charges/Coding Procedures Hospitalists Procedures: 32511 Critical Care 1st Hr
[2025-01-16] MEDS: Budesonide Respules 0.5 MG/2 ML AMPUL.NEB. INHALATION ×2 (06:53→19:34)
--- NOTE | 2025-01-16 07:16 | PN.HOSP_ITS ---
Reason for Visit Reason for Visit: Diagnoses Sepsis, unspecified organism (01/11/25) Achalasia of cardia (01/11/25) Gastrointestinal hemorrhage, unspecified (01/11/25) Fracture of unspecified carpal bone, left wrist, subsequent encounter for fracture with routine healing (01/11/25) Subjective Subjective Patient underwent EGD the day prior. Was found to have significant amount of food in the esophagus with severe erosive esophagitis with no bleeding. Patient was also found to have severe Schatzki ring which were dilated and subsequently injected with botulinum toxin patient however aspirated during the procedure necessitating patient being kept on the vent and sent back to the ICU Objective Data Objective Data Vital Signs: Vital Signs Temp Pulse Resp BP Pulse Ox O2 Del Method O2 Flow Rate 98.3 F 94 16 97/57 L 92 Mechanical Ventilator 2 01/16/25 05:00 01/16/25 07:12 01/16/25 07:12 01/16/25 05:00 01/16/25 07:12 01/16/25 05:00 01/15/25 14:52 FiO2 30 01/16/25 07:12 Oxygen Flow Rate (L/min) 2 Oxygen Delivery Method Mechanical Ventilator Weight: 78.8 kg Body Mass Index (BMI) 31.7 Intake & Output: Intake and Output for Last 24 Hours 01/14/25 01/15/25 01/16/25 23:59 23:59 23:59 Intake Total 1684.09 / 1684.09 3251.17 / 3265.24 1246.30 / 1246.30 Output Total 500 / 700 1251 / 1251 Balance 1184.09 / 984.09 1246.30 / 1246.30 Lab / Micro Data 01/16/25 04:30 01/16/25 04:30 Labs: Laboratory Results - last 24 hr 01/15/25 02:07: Total Creatine Kinase 106, Triglycerides 192 01/15/25 17:50: Lactic Acid < 1.0 01/16/25 04:30: WBC 11.3 H, RBC 2.98 L, Hgb 9.4 L, Hct 29.6 L, MCV 99.3 H, MCH 31.5, MCHC 31.8 L, RDW Std Deviation 56.2 H, RDW Coeff of Ha 15.7 H, Plt Count 108 L, MPV 10.6, Immature Gran % (Auto) 4.200 H, Neut % (Auto) 80.7 H, Lymph % (Auto) 7.3 L, [place] % (Auto) 7.0, Eos % (Auto) 0.4, Baso % (Auto) 0.4, Absolute Neuts (auto) 9.1 H, Absolute Lymphs (auto) 0.83, Nucleated RBC % 0.2, Sodium 142, Potassium 3.3, Chloride 111 H, Carbon Dioxide 17.4 L, Anion Gap 13, BUN 19, Creatinine 1.30 H, Estim Creat Clear Calc 29.64 L, Est GFR (MDRD) Non-Af 40 L, BUN/Creatinine Ratio 14.7, Glucose 125 H, Calcium 7.0 L, Phosphorus 2.9, M agnesium 1.4 L Micro: Microbiology 01/11/25 14:15 Urine, Clean Catch Urine Culture - Final Klebsiella pneumoniae sp pneum 01/11/25 22:14 Blood Culture (Wb) - Arm Left Blood Culture - Preliminary No growth in 48 hours. 01/11/25 22:04 Nasal Secretion MRSA (PCR) - Final 01/11/25 23:00 Mucosa - Nasopharyngeal SARS-CoV-2, Influenza & RSV (PCR) - Final 01/11/25 11:05 Stool Stool Occult Blood (ROYAL) - Final Occult Blood Positive ABG Data ABG results: ABG 01/15/25 01/16/25 19:51 05:16 Specimen Type ART ART Sample Site R Radial R Radial pH 7.16 L* 7.28 L Bicarbonate Actual 16.7 L 20.0 L Total CO2 18 21 Base Excess -12 L -7 L O2 Saturation 91 L 84 L O2 % 50.0 30.0 ABG pCO2 47.4 H 42.7 ABG pO2 77 55 L Mj Test Positive Positive Respiration Rate 12 12 O2 Delivery Device Adult Vent Adult Vent Vent Mode AC AC Tidal Volume 450.0 450.0 POC PEEP 5 5 Crit Call To/Read Back Yes Blood Gas Notified Whom Dr. Mcleod Blood Gas Notified Time 19:54:08 Radiography Diagnostic Testing: Radiology Impression Chest X-Ray 01/15/25 18:11 IMPRESSION: Tubes and lines as above. Pulmonary findings as above. Reading Location: [id number] Rhythm Strip Rhythm Strip: Sinus Rhythm Rate: 90 Ectopy: None Physical Exam Narrative GENERAL: Awake on the vent HEENT: Atraumatic; normocephalic EYES; Anicteric, Normal Conjunctiva, ET tube in place NECK; supple, normal thyroid, RESPIRATORY: Diminished to auscultation CARDIOVASCULAR: Regular S1 S2, GI: soft, normoactive bowel sounds, : No Renal angle tenderness; EXTREMITIES: No edema, no clubbing, MUSCULOSKELETAL: Left wrist in a brace NEURO: Awake; no lateralizing signs. SKIN: No Rash PSYCH; Flat affect Assessment & Plan Assessment/Plan (1) Sepsis: PLAN: Plan Patient is an 89-year-old lady who presented following a fall. Patient was found to be hypotensive on admission. Subsequently diagnosed with septic shock secondary to combination of pneumonia as well as acute cystitis admitted to the intensive care unit for further evaluation and management 1. Septic shock ? Due to combination of acute cystitis as well as pneumonia. Treatment was initiated per protocol with IV fluid resuscitation, pressors after patient failed to respond to IV fluids broad-spectrum antibiotic therapy after cultures have been sent. Patient presents with weaned off on the morning of 01/15/2025 ? 01/16/2025; patient aspirated during EGD. Patient sepsis protocol reinitiated with IV fluid resuscitation per protocol broad-spectrum antibiotic therapy repeat cultures sent and patient placed on Levophed titrated to keep MAP greater than 60 2. Acute hypoxic respiratory failure ? Secondary to aspiration pneumonia following patient EGD. Initial vent settings written. Consult placed to social media community manager for subsequent management of vent 3. Metabolic acidosis ? Secondary to sepsis patient did receive bicarb drip. Subsequent monitoring with daily BMPs ordered 4. Pneumonia - Suspected to be secondary to streptococcal pneumonia, blood cultures were sent on admission so far negative to date. Patient has been managed with levofloxacin as well as supplemental oxygen titrated to keep saturation greater than 90 01/16/2025; patient aspirated during the procedure necessitating adjustment of antibiotic therapy with discontinuation of Levaquin and initiation of piperacillin tazobactam 5. Acute cystitis with Klebsiella pneumonia ? Patient has been managed appropriately with levofloxacin ? 01/16/2025; Levaquin was discontinued the day prior 6. Achalasia ? Patient underwent EGD by Dr. Real on 01/15/2025. Findings and procedures performed as below - Food in the esophagus. Removal was successful. Mildly severe erosive esophagitis with no bleeding. Biopsied. Severe Schatzki ring. Dilated. Abnormal esophageal motility, established achalasia. Injected with botulinum toxin. No gross lesions in the entire stomach. 7. Recurrent C. difficile colitis ? Patient was restarted on p.o. vancomycin. Has had recurrence of her diarrhea. Repeat studies not performed since patient diagnosis was less than a month 8. Lower GI bleed ? Patient had recently undergone colonoscopy by Dr. Real on 01/01/2025 which demonstrated diverticulosis and nonbleeding external and internal hemorrhoids. 9. Anemia ? Secondary to acute on chronic disorder monitoring H&H and transfuse if patient becomes symptomatic or hemoglobin falls below 7 10. Acute kidney injury superimposed on chronic kidney disease stage III ? Suspected to be secondary to ATN from sepsis creatinine admission was 3.03 patient has responded to IV fluid creatinine as of 01/15/2025 was 1.39 11. Elevated troponin ? Secondary to demand ischemia patient presentation not consistent with ACS 12. Fall with left wrist fracture ? Patient was seen in consultation by orthopedic surgery manage with wrist immobilization as well as pain meds 13. Dyslipidemia ?Patient is on statin therapy, continued at home dose 14. Essential hypertension ? Patient antihypertensives held given patient low blood pressure 15. Peripheral vascular disease ? With known history of carotid artery stenosis patient is on clopidogrel as well as statin therapy 15. Chronic congestive heart failure ? With preserved ejection fraction patient remains euvolemic. Patient is on both furosemide as well as Aldactone held given her presenting 16. Diabetes mellitus type 2 ? Per history currently not on any antidiabetic medications 17. DVT prophylaxis ? Bilateral SCDs only given patient GI bleed Charges/Coding Visit Charges Inpatient E&M: 42240 Subs Hosp L3
[2025-01-16 08:51] LABS: Pro- Brain NATRIURETIC PEPTIDE 51803 pg/mL (<=1800); Procalcitonin 6.56 ng/mL (<=0.10)
[2025-01-16] MEDS: Cholecalciferol (Vit D3) 125 MCG CAPSULE (5,000 UNITS) GT (09:53)
[2025-01-16] MEDS: Magnesium Sulfate 2 GM in 0.9% Normal Saline (100mL Bag) 100 ML IV (09:55)
[2025-01-16] MEDS: Pantoprazole Sodium 40 MG in 0.9% Normal Saline (100mL MB+) 100 ML 300 MG IV ×2 (10:27→21:12)
[2025-01-16] MEDS: Chlorhexidine 15 ML PO ×2 (10:38→21:19)
--- NOTE | 2025-01-16 12:01 | CASEMGMT ---
Social Work Pt had been accepted in TCU. With new medical changes, pt will need to be re-reviewed when she is closer to time of discharge. NERISSA Soto
[2025-01-16] MEDS: Heparin Injection (Vial) 5,000 UNIT/ML VIAL 5000 UNIT SC ×2 (12:54→21:18)
--- NOTE | 2025-01-16 18:23 | PCM.PN.BLA ---
Progress Note Patient is currently in ICU for aspiration pneumonia. She is intubated and sedated. She underwent EGD yesterday for esophageal dysphagia and it was discovered to have a lot of solid pack food in her esophagus. She is status post EGD with food bolus removal, dilation of esophagus and Botox to lower esophageal sphincter. Physical Exam Narrative GENERAL: Awake on the vent HEENT: Atraumatic; normocephalic EYES; Anicteric, Normal Conjunctiva, ET tube in place NECK; supple, normal thyroid, RESPIRATORY: Diminished to auscultation CARDIOVASCULAR: Regular S1 S2, GI: soft, normoactive bowel sounds, : No Renal angle tenderness; EXTREMITIES: No edema, no clubbing, MUSCULOSKELETAL: Left wrist in a brace NEURO: Awake; no lateralizing signs. SKIN: No Rash PSYCH; Flat affect Assessment & Plan Assessment/Plan (1) Sepsis: (2) Achalasia: PLAN: Plan Patient is an 89-year-old lady who presented following a fall. Patient was found to be hypotensive on admission. Subsequently diagnosed with septic shock and development of aspiration pneumonia and oropharyngeal with esophageal dysphagia. She is status post repeat upper EGD with food bolus removal, dilation and Botox placement. - Aspiration pneumonia: Continue treatment as per hospitalist and key account representative recommendations. Continue broad-spectrum antibiotics. If no improvement by tomorrow and patient is not able to be extubated recommend to repeat imaging. - Achalasia: Patient has aged achalasia. I went over each possible treatment for her achalasia including quarterly Botox treatments with balloon dilation or Heller myotomy with Hazel fundoplication. Also talked about possibly placing esophageal stent however that would be very painful for her. I will let the family decide which way they want to go. Visit Charges Inpatient E&M: 90831 [facility] Hosp L3
[2025-01-16] MEDS: fentaNYL drip 100 ML 10 MCG CONT INF (21:20)
[2025-01-17] VITALS (58 sets, daily range): BP systolic 96–135; BP diastolic 42–72; PULSE 72–114; RESP 14–32; TEMP 37.2–38.1; O2SAT 91–97; BMI 31.8
[2025-01-17] MEDS: Vancomycin 125 MG/5 ML Susp PO.SYRINGE GT ×5 (00:03→23:01)
[2025-01-17] MEDS: Propofol 10MG/Ml 1,000 MG/100 ML Bottle 13 MG CONT INF (02:16)
[2025-01-17 04:23] LABS: Hematocrit 27.6 % (37-47); Hemoglobin 9.0 g/dL (12.0-15.0); Immature Granulocytes Count 0.320 X10^3/uL (0.0-0.0); Mean Corp Hgb Conc 32.6 g/dL (32-36); Mean Corpuscular Volume 96.8 fL (81-99); Mean Platelet Vol. 10.9 fl (6.2-12.0); NRBC Flagged by Analyzer 0 % (0-5); POSITIVE COUNT YES; RBC Distribution Width CV 15.2 % (11.6-14.6); RBC Distribution Width SD 54.1 fl (35.1-43.9); Red Blood Count 2.85 M/mm3 (4.2-5.4); White Blood Count 12.0 K/mm3 (4.4-11.0)
[2025-01-17 04:25] LABS: Differential Indicated SCAN CRITERIA MET
[2025-01-17 04:37] LABS: Anion Gap 14 (5-15); BUN 15 mg/dL (4-19); BUN/Creat Ratio 12.1 RATIO (10-20); Calcium,Total 7.6 mg/dL (7.6-11.0); Carbon Dioxide 18.1 mmol/L (21.0-32.0); Chloride 110 mmol/L (98-108); Estimated Creatinine Clearance 32.03 ml/min (50-250); Glucose 93 mg/dL (70-99); Potassium 3.0 mmol/L (3.3-5.1)
[2025-01-17] MEDS: 0.9% Saline Lock 10 ML Syringe IV ×3 (05:05→17:38)
[2025-01-17] MEDS: Piperacil/Tazobactam 3.375 GM in 0.9% Normal Saline (50mL MB+) 50 ML IV ×3 (05:06→21:13)
[2025-01-17] MEDS: Heparin Injection (Vial) 5,000 UNIT/ML VIAL 5000 UNIT SC ×3 (05:07→21:11)
--- NOTE | 2025-01-17 05:20 | RAD_ITS ---
PROCEDURE: CHEST 1 VIEW (PORTABLE) 01/17/2025 REASON FOR EXAM: RESPIRATORY FAILURE TECHNIQUE: Frontal view of the chest. COMPARISON: 01/15/2025 FINDINGS: ETT tip is between the inlet and the sofia. Enteric tube tip in stomach lumen. Right-sided PICC line tip in right atrium. Normal heart size. Under aerated lungs. Small bilateral effusions, partial improvement on the right.. Bilateral central and basilar lung opacities, likely a combination of edema and atelectasis, pneumonia not excluded. No pneumothorax. RAD/Chest 1 View (Portable) IMPRESSION: Small interval improvement in right effusion and adjacent airspace disease. Ov erall stable chest findings otherwise. Reading Location: [facility]
[2025-01-17 05:33] LABS: Differential Comment SCANNED
[2025-01-17 05:52] LABS: Allen Test Positive; Base Excess -5 mmol/L (-2 to +2); FI02 30.0; PEEP 5; PO2 93 mmHG (75-100); RR 16; SITE R Radial; SO2 98 % (95-99)
--- NOTE | 2025-01-17 06:24 | NURSING ---
SBT started at 0600. pt taking shallow breaths, frequent reminders to take deep breaths. fentanyl paused.
--- NOTE | 2025-01-17 06:44 | PCM.PN.INT ---
Assessment & Plan Assessment/Plan (1) Sepsis: PLAN: Plan RECOMMENDATIONS: 1. Continue assist-control mode mechanical ventilation. Continue to wean FiO2 and PEEP as tolerated. 2. Continue antimicrobials. 3. Continue Levophed to maintain a mean arterial pressure at or above 65 mmHg. 4. Start Lasix 40 mg twice daily. 5. Potassium repletion. 6. Continue fentanyl and propofol for sedation. 7. Continue scheduled bronchodilators. 8. Continue spontaneous awakening and breathing trials daily to assess readiness for extubation. IMPRESSIONS: 1. Septic shock Clinical concern for underlying urinary tract source of infection +/- aspiration pneumonia. The patient ultimately developed fluid refractory hypotension, which required the initiation of vasopressor support. Plan to continue with antimicrobial therapy along with Levophed to maintain a mean arterial pressure at or above 65 mmHg. 2. Acute hypoxemic respiratory failure The patient has a known history of achalasia and was taken for endoscopic evaluation on January 15, at which time, the patient decompensated from a respiratory perspective and was intubated. She was noted to have significant food in the esophagus, with concern for an acute aspiration event leading to her respiratory decompensation. At this time, the patient will be continued on assist-control mode mechanical ventilation. I am also concerned that hypervolemia is likely contributing as well to the patient's respiratory status. Accordingly, we will plan to initiate scheduled diuretics today, and continue as tolerated by hemodynamics and renal function. FiO2 and PEEP will be weaned to maintain saturations at or above 90%. Antimicrobials will be continued. Plan to continue current sedation regimen with plans for daily awakening and breathing trials to assess readiness for extubation. 3. Acute kidney injury Likely prerenal in etiology. Creatinine has stabilized at this time. Continue to monitor urine output. No current indication for renal replacement therapy. 4. History of achalasia The patient is status post endoscopic evaluation on January 15, during which time, the patient was noted to have a significant amount of food in the entire esophagus. A severe Schatzki ring was noted which was dilated. Botox was also injected. Continue current medical management per gastroenterology recommendations. 5. Recent left wrist fracture/recent C. difficile colitis on vancomycin/anemia/peripheral arterial disease/hypothyroidism Complicates care, management, recovery and prognosis. Continue supportive measures as noted above. Okay to initiate tube feeding today for nutritional support. TIME: 35 minutes of critical care time, independent of procedures, was spent addressing the patient's septic shock, acute hypoxemic respiratory failure, acute kidney injury, review of all data and collaboration with care team. Subjective Subjective The patient was seen and examined at the bedside this morning. Events from the last 24 hours have been reviewed. The patient remains on low-dose Levophed to maintain hemodynamic stability. The patient failed her spontaneous breathing trial this morning due to tachypnea and low tidal volumes. She is documented to be overall net +13.4 L for the hospitalization. White blood cell count this morning was noted to be 12,000. Hemoglobin is stable at 9.0 g/dL. ABG was notable for a pH of 7.46 with a pCO2 of 26 and pO2 of 93. Potassium is low at 3.0. Creatinine is stable at 1.2. BNP is markedly elevated at 51,803. Objective Data Objective Data The patient's most recent lab work, culture data and imaging studies have all been personally reviewed. Surface echocardiogram demonstrated mild concentric LVH with stage I diastolic dysfunction. Urine culture was positive for Klebsiella pneumonia. Sputum culture is currently pending. Vital Signs: Vital Signs Temp Pulse Resp BP Pulse Ox O2 Del Method O2 Flow Rate 99.8 F H 109 H 28 H 119/70 92 Mechanical Ventilator 2 01/17/25 06:00 01/17/25 06:13 01/17/25 06:13 01/17/25 06:00 01/17/25 06:13 01/17/25 05:00 01/15/25 14:52 FiO2 30 01/17/25 06:00 Oxygen Flow Rate (L/min) 2 Oxygen Delivery Method Mechanical Ventilator Weight: 172 lb 13.478 oz Body Mass Index (BMI) 31.8 Intake & Output: Intake and Output for Last 24 Hours 01/15/25 01/16/25 01/17/25 23:59 23:59 23:59 Intake Total 3251.17 / 3265.24 2213.95 / 2290.75 273.94 / 273.94 Output Total 1251 / 1251 825 / 1175 600 / 600 Balance 1388.95 / 1115.75 -326.06 / -326.06 Lab / Micro Data Attestation: I reviewed the patient's lab results. 01/17/25 04:12 01/17/25 04:12 Labs: Laboratory Results - last 24 hr 01/16/25 04:30: [place] [address] H, Procalcitonin 6.56 H 01/17/25 04:12: WBC 12.0 H, RBC 2.85 L, Hgb 9.0 L, Hct 27.6 L, MCV 96.8, MCH 31.6, MCHC 32.6, RDW Std Deviation 54.1 H, RDW Coeff of Ha 15.2 H, Plt Count Not Reportable, MPV 10.9, Immature Gran % (Auto) 2.700 H, Neut % (Auto) 84.0 H, Lymph % (Auto) 6.9 L, [place] % (Auto) 4.4, Eos % (Auto) 1.7, Baso % (Auto) 0.3, Absolute Neuts (auto) 10.1 H, Absolute Lymphs (auto) 0.83, Nucleated RBC % 0, Differential Comment SCANNED, Platelet Estimate ADEQUATE, Sodium 142, Potassium 3.0 L, Chloride 110 H, Carbon Dioxide 18.1 L, Anion Gap 14, BUN 15, Creatinine 1.20, Estim Creat Clear Calc 32.03 L, Est GFR (MDRD) Non-Af 44 L, BUN/Creatinine Ratio 12.1, Glucose 93, Calcium 7.6 Micro: Microbiology 01/15/25 17:58 Sputum, Induced/Lukens Gram Stain - Final 01/15/25 17:58 Sputum, Induced/Lukens Respiratory Culture - Preliminary Yeast, not Sera albicans 01/11/25 14:15 Urine, Clean Catch Urine Culture - Final Klebsiella pneumoniae sp pneum 01/11/25 22:14 Blood Culture (Wb) - Arm Left Blood Culture - Preliminary No growth in 48 hours. 01/11/25 22:04 Nasal Secretion MRSA (PCR) - Final 01/11/25 23:00 Mucosa - Nasopharyngeal SARS-CoV-2, Influenza & RSV (PCR) - Final 01/11/25 11:05 Stool Stool Occult Blood (ROYAL) - Final Occult Blood Positive ABG Data ABG results: ABG 01/17/25 05:49 Specimen Type ART Sample Site R Radial pH 7.46 H Bicarbonate Actual 19.1 L Total CO2 20 Base Excess -5 L O2 Saturation 98 O2 % 30.0 ABG pCO2 26.6 L ABG pO2 93 Mj Test Positive Respiration Rate 16 O2 Delivery Device Adult Vent Vent Mode AC Tidal Volume 450.0 POC PEEP 5 Radiography Diagnostic Testing: Radiology Impression Chest X-Ray 01/17/25 05:20 IMPRESSION: Small interval improvement in right effusion and adjacent airspace disease. Overall stable chest findings otherwise. Reading Location: [place] [address] Rhythm Strip Rhythm Strip: Sinus Rhythm Rate: 90 Ectopy: None Physical Exam Const Constitutional Narrative: Intubated, sedated and mechanically ventilated. No ventilator dyssynchrony noted. HEENT normocephalic HEENT Narrative: Facial ecchymoses noted Mouth: endotracheal tube in place and OG tube in place Eyes EOMs intact bilaterally and conjunctivae normal Neck supple General: trachea midline Chest inspection of chest normal Resp Effort and Inspection: tachypneic Auscultation: rales and diminished lung sounds; Negative for rhonchi or wheezes Cardio regular rate and regular rhythm GI normal to inspection, nondistended, normoactive bowel sounds Extremity no clubbing, cyanosis or edema Extremity Narrative: Scattered ecchymoses on extremities Neuro Sensorium / Orientation: sedated on vent Charges/Coding Procedures Hospitalists Procedures: 86021 Critical Care 1st Hr
--- NOTE | 2025-01-17 06:53 | PCM.PN.HOSP ---
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 did small bilateral effusions, partial improvement on the right.. Bilateral central and basilar lung opacities, likely a combination of edema and atelectasis. Attempt at weaning unsuccessful. Diuretic therapy added to patient treatment regimen. Patient was also found to have electrolyte abnormalities including hypokalemia Objective Data Objective Data Vital Signs: Vital Signs Temp Pulse Resp BP Pulse Ox O2 Del Method O2 Flow Rate 99.8 F H 109 H 28 H 119/70 92 Mechanical Ventilator 2 01/17/25 06:00 01/17/25 06:13 01/17/25 06:13 01/17/25 06:00 01/17/25 06:13 01/17/25 05:00 01/15/25 14:52 FiO2 30 01/17/25 06:00 Oxygen Flow Rate (L/min) 2 Oxygen Delivery Method Mechanical Ventilator Weight: 78.4 kg Body Mass Index (BMI) 31.8 Intake & Output: Intake and Output for Last 24 Hours 01/15/25 01/16/25 01/17/25 23:59 23:59 23:59 Intake Total 3251.17 / 3265.24 2213.95 / 2290.75 273.94 / 273.94 Output Total 1251 / 1251 825 / 1175 600 / 600 Balance 1388.95 / 1115.75 -326.06 / -326.06 Lab / Micro Data 01/17/25 04:12 01/17/25 04:12 Labs: Laboratory Results - last 24 hr 01/16/25 04:30: [place] [address] H, Procalcitonin 6.56 H 01/17/25 04:12: WBC 12.0 H, RBC 2.85 L, Hgb 9.0 L, Hct 27.6 L, MCV 96.8, MCH 31.6, MCHC 32.6, RDW Std Deviation 54.1 H, RDW Coeff of Ha 15.2 H, Plt Count Not Reportable, MPV 10.9, Immature Gran % (Auto) 2.700 H, Neut % (Auto) 84.0 H, Lymph % (Auto) 6.9 L, [place] % (Auto) 4.4, Eos % (Auto) 1.7, Baso % (Auto) 0.3, Absolute Neuts (auto) 10.1 H, Absolute Lymphs (auto) 0.83, Nucleated RBC % 0, Differential Comment SCANNED, Platelet Estimate ADEQUATE, Sodium 142, Potassium 3.0 L, Chloride 110 H, Carbon Dioxide 18.1 L, Anion Gap 14, BUN 15, Creatinine 1.20, Estim Creat Clear Calc 32.03 L, Est GFR (MDRD) Non-Af 44 L, BUN/Creatinine Ratio 12.1, Glucose 93, Calcium 7.6 Micro: Microbiology 01/15/25 17:58 Sputum, Induced/Lukens Gram Stain - Final 01/15/25 17:58 Sputum, Induced/Lukens Respiratory Culture - Preliminary Yeast, not Sera albicans 01/11/25 14:15 Urine, Clean Catch Urine Culture - Final Klebsiella pneumoniae sp pneum 01/11/25 22:14 Blood Culture (Wb) - Arm Left Blood Culture - Preliminary No growth in 48 hours. 01/11/25 22:04 Nasal Secretion MRSA (PCR) - Final 01/11/25 23:00 Mucosa - Nasopharyngeal SARS-CoV-2, Influenza & RSV (PCR) - Final 01/11/25 11:05 Stool Stool Occult Blood (ROYAL) - Final Occult Blood Positive ABG Data ABG results: ABG 01/17/25 05:49 Specimen Type ART Sample Site R Radial pH 7.46 H Bicarbonate Actual 19.1 L Total CO2 20 Base Excess -5 L O2 Saturation 98 O2 % 30.0 ABG pCO2 26.6 L ABG pO2 93 Mj Test Positive Respiration Rate 16 O2 Delivery Device Adult Vent Vent Mode AC Tidal Volume 450.0 POC PEEP 5 Radiography Diagnostic Testing: Radiology Impression Chest X-Ray 01/17/25 05:20 IMPRESSION: Small interval improvement in right effusion and adjacent airspace disease. Overall stable chest findings otherwise. Reading Location: [place] [address] Rhythm Strip Rhythm Strip: Sinus Rhythm Rate: 90 Ectopy: None Physical Exam Narrative GENERAL: Awake on the vent HEENT: Atraumatic; normocephalic EYES; Anicteric, Normal Conjunctiva, ET tube in place NECK; supple, normal thyroid, RESPIRATORY: Diminished to auscultation CARDIOVASCULAR: Regular S1 S2, GI: soft, normoactive bowel sounds, : No Renal angle tenderness; EXTREMITIES: Edema of both upper and lower extremities MUSCULOSKELETAL: Left wrist in a brace NEURO: Awake; no lateralizing signs. SKIN: No Rash PSYCH; Flat affect Assessment & Plan Assessment/Plan (1) Sepsis: PLAN: Plan Patient is an 89-year-old lady who presented following a fall. Patient was found to be hypotensive on admission. Subsequently diagnosed with septic shock secondary to combination of pneumonia as well as acute cystitis admitted to the intensive care unit for further evaluation and management 1. Septic shock ? Due to combination of acute cystitis as well as pneumonia. Treatment was initiated per protocol with IV fluid resuscitation, pressors after patient failed to respond to IV fluids broad-spectrum antibiotic therapy after cultures have been sent. Patient presents with weaned off on the morning of 01/15/2025 ? 01/16/2025; patient aspirated during EGD. Patient sepsis protocol reinitiated with IV fluid resuscitation per protocol broad-spectrum antibiotic therapy repeat cultures sent and patient placed on Levophed titrated to keep MAP greater than 60 ? 01/17/2025; patient continues to spike fevers. Culture sent on admission results still pending. 2. Acute hypoxic respiratory failure ? Secondary to aspiration pneumonia following patient EGD. Initial vent settings written. Consult placed to construction trades contractor for subsequent management of vent ? 01/17/2025: Chest x-ray obtained this a.m. did small bilateral effusions, partial improvement on the right.. Bilateral central and basilar lung opacities, likely a combination of edema and atelectasis. Attempt at weaning unsuccessful 4. Acute on chronic congestive heart failure with preserved ejection fraction ? Patient went into fluid overload following aggressive IV fluid resuscitation. Patient has been started on diuretic therapy with close monitoring of I's and O's 5. Hypokalemia ? Corrected protocol repeat labs ordered in a.m. for follow 6. Metabolic acidosis ? Secondary to sepsis patient did receive bicarb drip. Subsequent monitoring with daily BMPs ordered 7. Pneumonia - Suspected to be secondary to streptococcal pneumonia, blood cultures were sent on admission so far negative to date. Patient has been managed with levofloxacin as well as supplemental oxygen titrated to keep saturation greater than 90 01/16/2025; patient aspirated during the procedure necessitating adjustment of antibiotic therapy with discontinuation of Levaquin and initiation of piperacillin tazobactam 8. Acute cystitis with Klebsiella pneumonia ? Patient has been managed appropriately with levofloxacin ? 01/16/2025; Levaquin was discontinued the day prior 9. Achalasia ? Patient underwent EGD by Dr. Real on 01/15/2025. Findings and procedures performed as below - Food in the esophagus. Removal was successful. Mildly severe erosive esophagitis with no bleeding. Biopsied. Severe Schatzki ring. Dilated. Abnormal esophageal motility, established achalasia. Injected with botulinum toxin. No gross lesions in the entire stomach. 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 Patient was restarted on p.o. vancomycin. Has had recurrence of her diarrhea. Repeat studies not performed since patient diagnosis was less than a month 11. Lower GI bleed ? Patient had recently undergone colonoscopy by Dr. Real on 01/01/2025 which demonstrated diverticulosis and nonbleeding external and internal hemorrhoids. 12. Anemia ? Secondary to acute on chronic disorder monitoring H&H and transfuse if patient becomes symptomatic or hemoglobin falls below 7 13. Acute kidney injury superimposed on chronic kidney disease stage III ? Suspected to be secondary to ATN from sepsis creatinine admission was 3.03 patient has responded to IV fluid creatinine as of 01/15/2025 was 1.39 14. Elevated troponin ? Secondary to demand ischemia patient presentation not consistent with ACS 15. Fall with left wrist fracture ? Patient was seen in consultation by orthopedic surgery manage with wrist immobilization as well as pain meds 16. Diabetes mellitus type 2 ? Per history currently not on any antidiabetic medications 17. Dyslipidemia ?Patient is on statin therapy, continued at home dose 18. Essential hypertension ? Patient antihypertensives held given patient low blood pressure 19. Peripheral vascular disease ? With known history of carotid artery stenosis patient is on clopidogrel as well as statin therapy 20. DVT prophylaxis ? Bilateral SCDs only given patient GI bleed Charges/Coding Visit Charges Inpatient E&M: 96805 Subs Hosp L3
[2025-01-17] MEDS: Budesonide Respules 0.5 MG/2 ML AMPUL.NEB. INHALATION ×2 (07:04→19:11)
[2025-01-17] MEDS: Potassium Chloride 20mEq/100mL 20 MEQ/100 ML IV.SOLN. 100 MEQ IV ×2 (07:48→08:45)
[2025-01-17] MEDS: Potassium Chloride Oral Soln 20 MEQ/15 ML UDC 40 MEQ GT (07:50)
[2025-01-17] MEDS: Cholecalciferol (Vit D3) 125 MCG CAPSULE (5,000 UNITS) GT (07:50)
[2025-01-17] MEDS: CHLORHEXIDINE GLUC 2% CLOTH 1 EACH TOWELETTE TOPICAL (08:19)
[2025-01-17] MEDS: Chlorhexidine 15 ML PO ×2 (08:20→21:11)
[2025-01-17] MEDS: Pantoprazole Sodium 40 MG in 0.9% Normal Saline (100mL MB+) 100 ML 300 MG IV ×2 (10:01→21:11)
[2025-01-17] MEDS: Vital AF 1.2 Cal Liquid 1,000 ML 10 ML GT (10:10)
[2025-01-17] MEDS: fentaNYL drip 100 ML 7.5 MCG CONT INF ×2 (10:13→23:00)
[2025-01-17] MEDS: Propofol 10MG/Ml 1,000 MG/100 ML Bottle 8.7 MG CONT INF ×2 (13:00→23:00)
[2025-01-17] MEDS: Norepinephrine 8 MG in 0.9% Normal Saline (250mL Bag) 242 ML 3.8 MG CONT INF (14:55)
[2025-01-18] VITALS (34 sets, daily range): BP systolic 99–142; BP diastolic 43–73; PULSE 69–105; RESP 14–33; TEMP 37.4–38.2; O2SAT 92–97; BMI 30.7
[2025-01-18] MEDS: CHLORHEXIDINE GLUC 2% CLOTH 1 EACH TOWELETTE TOPICAL (05:16)
[2025-01-18] MEDS: Heparin Injection (Vial) 5,000 UNIT/ML VIAL 5000 UNIT SC ×3 (05:17→21:06)
[2025-01-18] MEDS: Vancomycin 125 MG/5 ML Susp PO.SYRINGE GT ×4 (05:17→23:52)
[2025-01-18] MEDS: 0.9% Saline Lock 10 ML Syringe IV ×2 (05:17→05:41)
[2025-01-18] MEDS: Piperacil/Tazobactam 3.375 GM in 0.9% Normal Saline (50mL MB+) 50 ML IV ×3 (05:17→21:06)
[2025-01-18] MEDS: TITRATION PARAMETER CHANGE 1 EACH IV (05:41)
[2025-01-18 06:02] LABS: Hematocrit 26.7 % (37-47); Hemoglobin 8.7 g/dL (12.0-15.0); Immature Granulocytes Count 0.200 X10^3/uL (0.0-0.0); Mean Corp Hgb Conc 32.6 g/dL (32-36); Mean Corpuscular Volume 96.0 fL (81-99); Mean Platelet Vol. 11.2 fl (6.2-12.0); NRBC Flagged by Analyzer 0 % (0-5); Platelet Count 130 K/mm3 (150-450); RBC Distribution Width CV 15.6 % (11.6-14.6); RBC Distribution Width SD 53.9 fl (35.1-43.9); Red Blood Count 2.78 M/mm3 (4.2-5.4); White Blood Count 11.8 K/mm3 (4.4-11.0)
--- NOTE | 2025-01-18 06:30 | PCM.PN.INT ---
Assessment & Plan Assessment/Plan (1) Sepsis: PLAN: Plan RECOMMENDATIONS: 1. Continue assist-control mode mechanical ventilation. Continue to wean FiO2 and PEEP as tolerated. 2. Continue antimicrobials. 3. Continue Levophed to maintain a mean arterial pressure at or above 65 mmHg. 4. Continue ongoing diuresis, as tolerated by hemodynamics and renal function. 5. Continue fentanyl and propofol for sedation. 6. Continue scheduled bronchodilators. 7. Continue spontaneous awakening and breathing trials daily to assess readiness for extubation. IMPRESSIONS: 1. Septic shock Clinical concern for underlying urinary tract source of infection +/- aspiration pneumonia. The patient ultimately developed fluid refractory hypotension, which required the initiation of vasopressor support. Plan to continue with antimicrobial therapy along with Levophed to maintain a mean arterial pressure at or above 65 mmHg. 2. Acute hypoxemic respiratory failure The patient has a known history of achalasia and was taken for endoscopic evaluation on January 15, at which time, the patient decompensated from a respiratory perspective and was intubated. She was noted to have significant food in the esophagus, with concern for an acute aspiration event leading to her respiratory decompensation. At this time, the patient will be continued on assist-control mode mechanical ventilation. I am also concerned that hypervolemia is likely contributing as well to the patient's respiratory status. Accordingly, we will plan to continue scheduled diuretics as tolerated by hemodynamics and renal function. FiO2 and PEEP will be weaned to maintain saturations at or above 90%. Antimicrobials will be continued. Plan to continue current sedation regimen with plans for daily awakening and breathing trials to assess readiness for extubation. 3. Acute kidney injury Resolved. Likely prerenal in etiology. Creatinine has stabilized at this time. Continue to monitor urine output. No current indication for renal replacement therapy. 4. History of achalasia The patient is status post endoscopic evaluation on January 15, during which time, the patient was noted to have a significant amount of food in the entire esophagus. A severe Schatzki ring was noted which was dilated. Botox was also injected. Continue current medical management per gastroenterology recommendations. 5. Recent left wrist fracture/recent C. difficile colitis on vancomycin/anemia/peripheral arterial disease/hypothyroidism Complicates care, management, recovery and prognosis. Continue supportive measures as noted above. Okay to continue tube feeding for nutritional support. TIME: 33 minutes of critical care time, independent of procedures, was spent addressing the patient's septic shock, acute hypoxemic respiratory failure, acute kidney injury, review of all data and collaboration with care team. Subjective Subjective The patient was seen and examined at the bedside this morning. Events from the last 24 hours have been reviewed. The patient is maintaining appropriate oxygen saturations on assist-control mode mechanical ventilation with an FiO2 requirement of 30%. She remains on low-dose Levophed at 3 mcg/min to maintain hemodynamic stability. The patient is documented to be overall net +10.1 L for the hospitalization. White blood cell count is stable at 12,000. Hemoglobin is stable at 8.7 g/dL. The patient had a good response to diuretics yesterday with creatinine this morning noted to be 1.2. Respiratory therapy reported thick endotracheal tube secretions overnight. Unfortunately, the patient failed her spontaneous breathing trial this morning secondary to tachypnea and low tidal volumes. Objective Data Objective Data The patient's most recent lab work, culture data and imaging studies have all been personally reviewed. Surface echocardiogram demonstrated mild concentric LVH with stage I diastolic dysfunction. Urine culture was positive for Klebsiella pneumonia. Sputum culture is currently pending. Vital Signs: Vital Signs Temp Pulse Resp BP Pulse Ox O2 Del Method O2 Flow Rate 99.7 F H 77 14 113/47 L 96 Mechanical Ventilator 2 01/18/25 06:00 01/18/25 06:00 01/18/25 06:00 01/18/25 06:00 01/18/25 06:00 01/18/25 06:00 01/15/25 14:52 FiO2 30 01/18/25 06:00 Oxygen Flow Rate (L/min) 2 Oxygen Delivery Method Mechanical Ventilator Weight: 166 lb 10.711 oz Body Mass Index (BMI) 30.7 Intake & Output: Intake and Output for Last 24 Hours 01/16/25 01/17/25 01/18/25 23:59 23:59 23:59 Intake Total 2213.95 / 2290.75 1765.57 / 1787.37 441.93 / 441.93 Output Total 825 / 1175 5000 / 5000 825 / 825 Balance 1388.95 / 1115.75 -3234.43 / -3212.63 -383.07 / -383.07 Lab / Micro Data Attestation: I reviewed the patient's lab results. 01/18/25 05:25 01/18/25 05:25 Labs: Laboratory Results - last 24 hr 01/18/25 05:25: WBC 11.8 H, RBC 2.78 L, Hgb 8.7 L, Hct 26.7 L, MCV 96.0, MCH 31.3, MCHC 32.6, RDW Std Deviation 53.9 H, RDW Coeff of Ha 15.6 H, Plt Count 130 L, MPV 11.2, Immature Gran % (Auto) 1.700 H, Neut % (Auto) 85.5 H, Lymph % (Auto) 5.7 L, [place] % (Auto) 4.4, Eos % (Auto) 2.4, Baso % (Auto) 0.3, Absolute Neuts (auto) 10.1 H, Absolute Lymphs (auto) 0.68 L, Nucleated RBC % 0 Micro: Microbiology 01/15/25 17:58 Sputum, Induced/Lukens Gram Stain - Final 01/15/25 17:58 Sputum, Induced/Lukens Respiratory Culture - Final Yeast, not Sera albicans 01/11/25 22:14 Blood Culture (Wb) - Arm Left Blood Culture - Final No growth in 5 days. 01/11/25 14:15 Urine, Clean Catch Urine Culture - Final Klebsiella pneumoniae sp pneum 01/11/25 22:04 Nasal Secretion MRSA (PCR) - Final 01/11/25 23:00 Mucosa - Nasopharyngeal SARS-CoV-2, Influenza & RSV (PCR) - Final 01/11/25 11:05 Stool Stool Occult Blood (ROYAL) - Final Occult Blood Positive ABG Data ABG results: ABG 01/17/25 05:49 Specimen Type ART Sample Site R Radial pH 7.46 H Bicarbonate Actual 19.1 L Total CO2 20 Base Excess -5 L O2 Saturation 98 O2 % 30.0 ABG pCO2 26.6 L ABG pO2 93 Mj Test Positive Respiration Rate 16 O2 Delivery Device Adult Vent Vent Mode AC Tidal Volume 450.0 POC PEEP 5 Radiography Diagnostic Testing: Radiology Impression Chest X-Ray 01/17/25 05:20 IMPRESSION: Small interval improvement in right effusion and adjacent airspace disease. Overall stable chest findings otherwise. Reading Location: [place] [address] Rhythm Strip Rhythm Strip: Sinus Rhythm Rate: 90 Ectopy: None Physical Exam Const Constitutional Narrative: Intubated, sedated and mechanically ventilated. No ventilator dyssynchrony noted. HEENT normocephalic HEENT Narrative: Facial ecchymoses noted Mouth: endotracheal tube in place and OG tube in place Eyes EOMs intact bilaterally and conjunctivae normal Neck supple General: trachea midline Chest inspection of chest normal Resp Effort and Inspection: tachypneic Auscultation: diminished lung sounds; Negative for rales, rhonchi or wheezes Cardio regular rate and regular rhythm GI normal to inspection, nondistended, normoactive bowel sounds Extremity no clubbing, cyanosis or edema Extremity Narrative: Scattered ecchymoses on extremities Neuro Sensorium / Orientation: sedated on vent Charges/Coding Procedures Hospitalists Procedures: [id number] Critical Care 1st Hr
[2025-01-18 06:39] LABS: Anion Gap 10 (5-15); BUN 13 mg/dL (4-19); BUN/Creat Ratio 11.0 RATIO (10-20); Calcium,Total 7.5 mg/dL (7.6-11.0); Carbon Dioxide 21.8 mmol/L (21.0-32.0); Chloride 112 mmol/L (98-108); Estimated Creatinine Clearance 31.44 ml/min (50-250); Glucose 118 mg/dL (70-99); Potassium 3.4 mmol/L (3.3-5.1)
--- NOTE | 2025-01-18 07:04 | PCM.PN.HOSP ---
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 Continues to diurese well negative fluid balance of 3 L over the past 24 hours. Patient still remains on pressor support with Levophed Objective Data Objective Data Vital Signs: Vital Signs Temp Pulse Resp BP Pulse Ox O2 Del Method O2 Flow Rate 99.9 F H 92 29 H 131/61 H 97 Mechanical Ventilator 2 01/18/25 07:00 01/18/25 07:00 01/18/25 07:00 01/18/25 07:00 01/18/25 07:00 01/18/25 07:00 01/15/25 14:52 FiO2 30 01/18/25 07:00 Oxygen Flow Rate (L/min) 2 Oxygen Delivery Method Mechanical Ventilator Weight: 75.6 kg Body Mass Index (BMI) 30.7 Intake & Output: Intake and Output for Last 24 Hours 01/16/25 01/17/25 01/18/25 23:59 23:59 23:59 Intake Total 2213.95 / 2290.75 1765.57 / 1787.37 447.53 / 447.53 Output Total 825 / 1175 5000 / 5000 825 / 825 Balance 1388.95 / 1115.75 -3234.43 / -3212.63 -377.47 / -377.47 Lab / Micro Data 01/18/25 05:25 01/18/25 05:25 Labs: Laboratory Results - last 24 hr 01/18/25 05:25: WBC 11.8 H, RBC 2.78 L, Hgb 8.7 L, Hct 26.7 L, MCV 96.0, MCH 31.3, MCHC 32.6, RDW Std Deviation 53.9 H, RDW Coeff of Ha 15.6 H, Plt Count 130 L, MPV 11.2, Immature Gran % (Auto) 1.700 H, Neut % (Auto) 85.5 H, Lymph % (Auto) 5.7 L, [place] % (Auto) 4.4, Eos % (Auto) 2.4, Baso % (Auto) 0.3, Absolute Neuts (auto) 10.1 H, Absolute Lymphs (auto) 0.68 L, Nucleated RBC % 0, Sodium 144, Potassium 3.4, Chloride 112 H, Carbon Dioxide 21.8, Anion Gap 10, BUN 13, Creatinine 1.20, Estim Creat Clear Calc 31.44 L, Est GFR (MDRD) Non-Af 44 L, BUN/Creatinine Ratio 11.0, Glucose 118 H, Calcium 7.5 L Micro: Microbiology 01/15/25 17:58 Sputum, Induced/Lukens Gram Stain - Final 01/15/25 17:58 Sputum, Induced/Lukens Respiratory Culture - Final Yeast, not Sera albicans 01/11/25 22:14 Blood Culture (Wb) - Arm Left Blood Culture - Final No growth in 5 days. 01/11/25 14:15 Urine, Clean Catch Urine Culture - Final Klebsiella pneumoniae sp pneum 01/11/25 22:04 Nasal Secretion MRSA (PCR) - Final 01/11/25 23:00 Mucosa - Nasopharyngeal SARS-CoV-2, Influenza & RSV (PCR) - Final 01/11/25 11:05 Stool Stool Occult Blood (ROYAL) - Final Occult Blood Positive Rhythm Strip Rhythm Strip: Sinus Rhythm Rate: 90 Ectopy: None Physical Exam Narrative GENERAL: Awake on the vent HEENT: Atraumatic; normocephalic EYES; Anicteric, Normal Conjunctiva, ET tube in place NECK; supple, normal thyroid, RESPIRATORY: Diminished to auscultation CARDIOVASCULAR: Regular S1 S2, GI: soft, normoactive bowel sounds, : No Renal angle tenderness; EXTREMITIES: Edema of both upper and lower extremities MUSCULOSKELETAL: Left wrist in a brace NEURO: Awake; no lateralizing signs. SKIN: No Rash PSYCH; Flat affect Assessment & Plan Assessment/Plan (1) Sepsis: PLAN: Plan Patient is an 89-year-old lady who presented following a fall. Patient was found to be hypotensive on admission. Subsequently diagnosed with septic shock secondary to combination of pneumonia as well as acute cystitis admitted to the intensive care unit for further evaluation and management 1. Septic shock ? Due to combination of acute cystitis as well as pneumonia. Treatment was initiated per protocol with IV fluid resuscitation, pressors after patient failed to respond to IV fluids broad-spectrum antibiotic therapy after cultures have been sent. Patient presents with weaned off on the morning of 01/15/2025 ? 01/16/2025; patient aspirated during EGD. Patient sepsis protocol reinitiated with IV fluid resuscitation per protocol broad-spectrum antibiotic therapy repeat cultures sent and patient placed on Levophed titrated to keep MAP greater than 60 ? 01/17/2025; patient continues to spike fevers. Culture sent on admission results still pending. ? 01/19/2024; repeat blood cultures still negative to date. The patient still remains on Levophed 2. Acute hypoxic respiratory failure ? Secondary to aspiration pneumonia following patient EGD. Initial vent settings written. Consult placed to air reduction equipment operator for subsequent management of vent ? 01/17/2025: Chest x-ray obtained this a.m. did small bilateral effusions, partial improvement on the right.. Bilateral central and basilar lung opacities, likely a combination of edema and atelectasis. Attempt at weaning unsuccessful ? 01/18/2025; patient remains on the vent 4. Acute on chronic congestive heart failure with preserved ejection fraction ? Patient went into fluid overload following aggressive IV fluid resuscitation. Patient has been started on diuretic therapy with close monitoring of I's and O's ? 01/18/2025; patient responding to diuretic therapy 5. Hypokalemia ? Corrected protocol repeat labs ordered in a.m. for follow 6. Metabolic acidosis ? Secondary to sepsis patient did receive bicarb drip. Subsequent monitoring with daily BMPs ordered 7. Pneumonia - Suspected to be secondary to streptococcal pneumonia, blood cultures were sent on admission so far negative to date. Patient has been managed with levofloxacin as well as supplemental oxygen titrated to keep saturation greater than 90 01/16/2025; patient aspirated during the procedure necessitating adjustment of antibiotic therapy with discontinuation of Levaquin and initiation of piperacillin tazobactam 8. Acute cystitis with Klebsiella pneumonia ? Patient has been managed appropriately with levofloxacin ? 01/16/2025; Levaquin was discontinued the day prior 9. Achalasia ? Patient underwent EGD by Dr. Real on 01/15/2025. Findings and procedures performed as below - Food in the esophagus. Removal was successful. Mildly severe erosive esophagitis with no bleeding. Biopsied. Severe Schatzki ring. Dilated. Abnormal esophageal motility, established achalasia. Injected with botulinum toxin. No gross lesions in the entire stomach. 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 Patient was restarted on p.o. vancomycin. Has had recurrence of her diarrhea. Repeat studies not performed since patient diagnosis was less than a month 11. Lower GI bleed ? Patient had recently undergone colonoscopy by Dr. Real on 01/01/2025 which demonstrated diverticulosis and nonbleeding external and internal hemorrhoids. 12. Anemia ? Secondary to acute on chronic disorder monitoring H&H and transfuse if patient becomes symptomatic or hemoglobin falls below 7 13. Acute kidney injury superimposed on chronic kidney disease stage III ? Suspected to be secondary to ATN from sepsis creatinine admission was 3.03 patient has responded to IV fluid creatinine as of 01/15/2025 was 1.39 14. Elevated troponin ? Secondary to demand ischemia patient presentation not consistent with ACS 15. Fall with left wrist fracture ? Patient was seen in consultation by orthopedic surgery manage with wrist immobilization as well as pain meds 16. Diabetes mellitus type 2 ? Per history currently not on any antidiabetic medications 17. Dyslipidemia ?Patient is on statin therapy, continued at home dose 18. Essential hypertension ? Patient antihypertensives held given patient low blood pressure 19. Peripheral vascular disease ? With known history of carotid artery stenosis patient is on clopidogrel as well as statin therapy 20. DVT prophylaxis ? Bilateral SCDs only given patient GI bleed Charges/Coding Visit Charges Inpatient E&M: 30461 Subs Hosp L2
[2025-01-18] MEDS: Budesonide Respules 0.5 MG/2 ML AMPUL.NEB. INHALATION ×2 (07:16→19:57)
[2025-01-18] MEDS: Pantoprazole Sodium 40 MG in 0.9% Normal Saline (100mL MB+) 100 ML 300 MG IV ×2 (09:25→21:06)
[2025-01-18] MEDS: Chlorhexidine 15 ML PO ×2 (09:25→21:07)
[2025-01-18] MEDS: Propofol 10MG/Ml 1,000 MG/100 ML Bottle 9.1 MG CONT INF ×2 (09:26→21:00)
[2025-01-18] MEDS: Cholecalciferol (Vit D3) 125 MCG CAPSULE (5,000 UNITS) GT (09:26)
[2025-01-18] MEDS: Acetaminophen 650 MG/20 ML UDC 1000 MG GT (12:33)
[2025-01-18] MEDS: fentaNYL drip 100 ML 7.5 MCG CONT INF (14:37)
[2025-01-19] VITALS (48 sets, daily range): BP systolic 76–159; BP diastolic 36–124; PULSE 69–108; RESP 14–27; TEMP 36.5–38.1; O2SAT 92–99; BMI 30.7
[2025-01-19] MEDS: fentaNYL drip 100 ML 10 MCG CONT INF (02:21)
[2025-01-19] MEDS: Propofol 10MG/Ml 1,000 MG/100 ML Bottle 11.3 MG CONT INF (04:19)
[2025-01-19] MEDS: CHLORHEXIDINE GLUC 2% CLOTH 1 EACH TOWELETTE TOPICAL (04:20)
--- NOTE | 2025-01-19 05:10 | RAD_ITS ---
PROCEDURE: CHEST 1 VIEW (PORTABLE) 01/19/2025 REASON FOR EXAM: RESPIRATORY FAILURE TECHNIQUE: Frontal view of the chest. COMPARISON: 01/17/2025 FINDINGS: ETT tip between the inlet and the sofia. Right-sided PICC line tip at cavoatrial junction. Enteric tube tip in stomach lumen. Normal heart size. Interval improving lung aeration. Small residual left retrocardiac atelectasis. Interval clearing of small left effusion. At the right mid and lower lung zone, there is persistent opacity, atelectasis/consolidation. Blunted right angle. No large effusion. No pneumothorax. RAD/Chest 1 View (Portable) IMPRESSION: Overall improving lung aeration, but persisting hqjgs-mlefocs-hijs-left basilar airspace disease. Reading Location: [facility]
[2025-01-19 05:44] LABS: Allen Test Positive; Base Excess 0 mmol/L (-2 to +2); FI02 30.0; PEEP 5; PO2 82 mmHG (75-100); RR 14; SITE R Radial; SO2 97 % (95-99)
[2025-01-19] MEDS: Piperacil/Tazobactam 3.375 GM in 0.9% Normal Saline (50mL MB+) 50 ML IV ×3 (06:32→22:24)
[2025-01-19] MEDS: Vancomycin 125 MG/5 ML Susp PO.SYRINGE GT ×3 (06:32→17:07)
[2025-01-19] MEDS: Heparin Injection (Vial) 5,000 UNIT/ML VIAL 5000 UNIT SC ×3 (06:34→22:26)
[2025-01-19] MEDS: Budesonide Respules 0.5 MG/2 ML AMPUL.NEB. INHALATION ×2 (06:58→19:35)
--- NOTE | 2025-01-19 07:23 | PCM.PN.HOSP ---
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 Continues to diurese. Plan is for patient to undergo weaning trial this a.m. Objective Data Objective Data Vital Signs: Vital Signs Temp Pulse Resp BP Pulse Ox O2 Del Method O2 Flow Rate 100.0 F H 95 18 132/53 H 95 Mechanical Ventilator 2 01/19/25 06:00 01/19/25 06:58 01/19/25 06:58 01/19/25 06:00 01/19/25 06:58 01/19/25 06:58 01/15/25 14:52 FiO2 30 01/19/25 06:58 Oxygen Flow Rate (L/min) 2 Oxygen Delivery Method Mechanical Ventilator Weight: 76.2 kg Body Mass Index (BMI) 30.7 Intake & Output: Intake and Output for Last 24 Hours 01/17/25 01/18/25 01/19/25 23:59 23:59 23:59 Intake Total 1765.57 / 1787.37 1496.68 / 1523.58 296.03 / 296.03 Output Total 5000 / 5000 2100 / 2230 205 / 205 Balance -3234.43 / -3212.63 -603.32 / -706.42 91.03 / 91.03 Lab / Micro Data 01/19/25 07:50 01/18/25 05:25 Micro: Microbiology 01/15/25 18:27 Blood Culture (Wb) - Anticubital Left Blood Culture - Preliminary No growth in 48 hours. 01/15/25 17:45 Blood Culture (Wb) - Pic Blood Culture - Preliminary No growth in 48 hours. 01/15/25 17:58 Sputum, Induced/Lukens Gram Stain - Final 01/15/25 17:58 Sputum, Induced/Lukens Respiratory Culture - Final Yeast, not Sera albicans 01/11/25 22:14 Blood Culture (Wb) - Arm Left Blood Culture - Final No growth in 5 days. 01/11/25 14:15 Urine, Clean Catch Urine Culture - Final Klebsiella pneumoniae sp pneum 01/11/25 22:04 Nasal Secretion MRSA (PCR) - Final 01/11/25 23:00 Mucosa - Nasopharyngeal SARS-CoV-2, Influenza & RSV (PCR) - Final 01/11/25 11:05 Stool Stool Occult Blood (ROYAL) - Final Occult Blood Positive ABG Data ABG results: ABG 01/19/25 05:38 Specimen Type ART Sample Site R Radial pH 7.48 H Bicarbonate Actual 23.7 Total CO2 25 Base Excess 0 O2 Saturation 97 O2 % 30.0 ABG pCO2 31.5 L ABG pO2 82 Mj Test Positive Respiration Rate 14 O2 Delivery Device Adult Vent Vent Mode AC Tidal Volume 450.0 POC PEEP 5 Radiography Diagnostic Testing: Radiology Impression Chest X-Ray 01/19/25 05:10 IMPRESSION: Overall improving lung aeration, but persisting pgzlf-[id number]-ftap-left basilar airspace disease. Reading Location: [place] [address] Rhythm Strip Rhythm Strip: Sinus Rhythm Rate: 90 Ectopy: None Physical Exam Narrative GENERAL: Awake on the vent HEENT: Atraumatic; normocephalic EYES; Anicteric, Normal Conjunctiva, ET tube in place NECK; supple, normal thyroid, RESPIRATORY: Diminished to auscultation CARDIOVASCULAR: Regular S1 S2, GI: soft, normoactive bowel sounds, : No Renal angle tenderness; EXTREMITIES: Edema of both upper and lower extremities MUSCULOSKELETAL: Left wrist in a brace NEURO: Awake; no lateralizing signs. SKIN: No Rash PSYCH; Flat affect Assessment & Plan Assessment/Plan (1) Sepsis: PLAN: Plan Patient is an 89-year-old lady who presented following a fall. Patient was found to be hypotensive on admission. Subsequently diagnosed with septic shock secondary to combination of pneumonia as well as acute cystitis admitted to the intensive care unit for further evaluation and management 1. Septic shock ? Due to combination of acute cystitis as well as pneumonia. Treatment was initiated per protocol with IV fluid resuscitation, pressors after patient failed to respond to IV fluids broad-spectrum antibiotic therapy after cultures have been sent. Patient presents with weaned off on the morning of 01/15/2025 ? 01/16/2025; patient aspirated during EGD. Patient sepsis protocol reinitiated with IV fluid resuscitation per protocol broad-spectrum antibiotic therapy repeat cultures sent and patient placed on Levophed titrated to keep MAP greater than 60 ? 01/17/2025; patient continues to spike fevers. Culture sent on admission results still pending. ? 01/19/2024; repeat blood cultures still negative to date. The patient still remains on Levophed ? 01/19/2025; patient still remains on Levophed currently at 2 mcg/min 2. Acute hypoxic respiratory failure ? Secondary to aspiration pneumonia following patient EGD. Initial vent settings written. Consult placed to subgrade roller operator for subsequent management of vent ? 01/17/2025: Chest x-ray obtained this a.m. did small bilateral effusions, partial improvement on the right.. Bilateral central and basilar lung opacities, likely a combination of edema and atelectasis. Attempt at weaning unsuccessful ? 01/18/2025; patient remains on the vent ?01/19/2025; plans for patient to undergo weaning trial this 4. Acute on chronic congestive heart failure with preserved ejection fraction ? Patient went into fluid overload following aggressive IV fluid resuscitation. Patient has been started on diuretic therapy with close monitoring of I's and O's ? 01/18/2025; patient responding to diuretic therapy 5. Hypokalemia ? Corrected protocol repeat labs ordered in a.m. for follow 6. Metabolic acidosis ? Secondary to sepsis patient did receive bicarb drip. Subsequent monitoring with daily BMPs ordered 7. Pneumonia - Suspected to be secondary to streptococcal pneumonia, blood cultures were sent on admission so far negative to date. Patient has been managed with levofloxacin as well as supplemental oxygen titrated to keep saturation greater than 90 01/16/2025; patient aspirated during the procedure necessitating adjustment of antibiotic therapy with discontinuation of Levaquin and initiation of piperacillin tazobactam 8. Acute cystitis with Klebsiella pneumonia ? Patient has been managed appropriately with levofloxacin ? 01/16/2025; Levaquin was discontinued the day prior 9. Achalasia ? Patient underwent EGD by Dr. Real on 01/15/2025. Findings and procedures performed as below - Food in the esophagus. Removal was successful. Mildly severe erosive esophagitis with no bleeding. Biopsied. Severe Schatzki ring. Dilated. Abnormal esophageal motility, established achalasia. Injected with botulinum toxin. No gross lesions in the entire stomach. 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 Patient was restarted on p.o. vancomycin. Has had recurrence of her diarrhea. Repeat studies not performed since patient diagnosis was less than a month 11. Lower GI bleed ? Patient had recently undergone colonoscopy by Dr. Real on 01/01/2025 which demonstrated diverticulosis and nonbleeding external and internal hemorrhoids. 12. Anemia ? Secondary to acute on chronic disorder monitoring H&H and transfuse if patient becomes symptomatic or hemoglobin falls below 7 13. Acute kidney injury superimposed on chronic kidney disease stage III ? Suspected to be secondary to ATN from sepsis creatinine admission was 3.03 patient has responded to IV fluid creatinine as of 01/15/2025 was 1.39 14. Elevated troponin ? Secondary to demand ischemia patient presentation not consistent with ACS 15. Fall with left wrist fracture ? Patient was seen in consultation by orthopedic surgery manage with wrist immobilization as well as pain meds 16. Diabetes mellitus type 2 ? Per history currently not on any antidiabetic medications 17. Dyslipidemia ?Patient is on statin therapy, continued at home dose 18. Essential hypertension ? Patient antihypertensives held given patient low blood pressure 19. Peripheral vascular disease ? With known history of carotid artery stenosis patient is on clopidogrel as well as statin therapy 20. DVT prophylaxis ? Bilateral SCDs only given patient GI bleed Charges/Coding Visit Charges Inpatient E&M: 10148 Subs Hosp L2
[2025-01-19] MEDS: Cholecalciferol (Vit D3) 125 MCG CAPSULE (5,000 UNITS) GT (07:47)
[2025-01-19 08:01] LABS: Hematocrit 27.3 % (37-47); Hemoglobin 8.9 g/dL (12.0-15.0); Mean Corp Hgb Conc 32.6 g/dL (32-36); Mean Corpuscular Volume 95.8 fL (81-99); Mean Platelet Vol. 10.9 fl (6.2-12.0); Platelet Count 126 K/mm3 (150-450); RBC Distribution Width CV 15.4 % (11.6-14.6); RBC Distribution Width SD 53.4 fl (35.1-43.9); Red Blood Count 2.85 M/mm3 (4.2-5.4); White Blood Count 12.2 K/mm3 (4.4-11.0)
[2025-01-19 08:59] LABS: AST(SGOT) 33 U/L (<=31); Alanine Aminotransfer ALT/SGPT 17 U/L (<=34); Albumin, Serum 2.4 g/dL (3.4-4.8); Alkaline Phosphatase 125 U/L (35-104); Anion Gap 13 (5-15); BUN 17 mg/dL (4-19); BUN/Creat Ratio 11.8 RATIO (10-20); Calcium,Total 7.6 mg/dL (7.6-11.0); Carbon Dioxide 22.0 mmol/L (21.0-32.0); Chloride 110 mmol/L (98-108); Estimated Creatinine Clearance 25.94 ml/min (50-250); Globulin 3.1 g/dL (2.2-4.2); Glucose 138 mg/dL (70-99); Magnesium 1.4 mg/dL (1.5-2.2); Potassium 3.3 mmol/L (3.3-5.1)
[2025-01-19] MEDS: Pantoprazole Sodium 40 MG in 0.9% Normal Saline (100mL MB+) 100 ML 300 MG IV ×2 (09:48→22:24)
[2025-01-19] MEDS: Chlorhexidine 15 ML PO (09:49)
[2025-01-19] MEDS: 0.9% Saline Lock 10 ML Syringe IV (09:57)
--- NOTE | 2025-01-19 11:48 | PN.CC_ITS ---
Objective Data Objective Data Vital Signs: Vital Signs Last response 3 Temperature 37.8 C H 01/19/25 11:00 Temperature Source Core 01/19/25 11:00 Pulse Rate 103 H 01/19/25 11:00 Pulse Strength Weak (1+) 01/17/25 19:53 Respiratory Rate 14 01/19/25 11:00 Respiratory Effort Mechanically Ventilated 01/19/25 08:00 Respiratory Depth Normal 01/19/25 08:00 Respiratory Pattern Normal 01/19/25 08:00 Blood Pressure 106/52 L 01/19/25 11:00 Blood Pressure Mean 70 01/19/25 11:00 Blood Pressure Source Monitor 01/19/25 06:00 Blood Pressure Position Semi-Fowlers 01/19/25 06:00 Blood Pressure Location Right Forearm 01/19/25 06:00 Pulse Ox 99 01/19/25 11:00 Oxygen Delivery Method Mechanical Ventilator 01/19/25 11:00 Oxygen Flow Rate (L/min) 2 01/15/25 14:52 Fraction of Inspired Oxygen (FIO2) 40 01/19/25 11:00 I&O: I&O Last 24 Hours 3 01/18/25 01/18/25 01/19/25 11:59 23:59 11:59 Intake Total 683.52 / 1523.58 813.16 / 1523.58 1020.13 / 1020.13 Output Total 825 / 2230 1275 / 2230 205 / 205 Balance -141.48 / -706.42 -461.84 / -706.42 815.13 / 815.13 I&O: Total Stay 3 01/11/25 10:13 thru 01/19/25 11:12 Intake Total 05429.77 Output Total 24956 Balance 75518.77 Ventilator:: vent check made Current Meds Ordered / Administered: Current meds ordered / Administered 3 Generic Name Dose Route Start Last Admin Trade Name Freq PRN Reason Stop Dose Admin Acetaminophen 1,000 mg 01/15/25 18:24 01/18/25 12:33 Acetaminophen 650 Mg/20 Ml Udc GT 1,000 mg Q6H PRN Administration Pain Score 1-10 Albuterol Sulfate 2.5 mg 01/15/25 16:23 01/15/25 19:20 Albuterol 2.5 Mg/3 Ml Vial.Neb. INHALATION 2.5 mg Q2H PRN PRN Administration DYSPNEA/WHEEZING/SOB Albuterol/Ipratropium 3 ml 01/11/25 21:45 01/19/25 10:06 Ipratropium/Albuterol Sulfate 3 Ml Ampul.Neb INHALATION 3 ml Q4H.RT MUSA Administration Atorvastatin Calcium 40 mg 01/15/25 22:00 01/18/25 21:06 Atorvastatin Calcium 40 Mg Tablet GT 40 mg QHS MUSA Administration Budesonide 0.5 mg 01/14/25 12:45 01/19/25 06:58 Budesonide Respules 0.5 Mg/2 Ml Ampul.Neb. INHALATION 0.5 mg BID.RT MUSA Administration Chlorhexidine Gluconate 15 ml 01/15/25 22:00 01/19/25 09:49 Chlorhexidine 15 Ml PO 15 ml BID MUSA Administration Chlorhexidine Gluconate 1 each 01/17/25 10:00 01/19/25 04:20 Chlorhexidine Gluc 2% Cloth 1 Each Towelette TOPICAL 1 each DAILY MUSA Administration Cholecalciferol 125 mcg 01/16/25 10:00 01/19/25 07:47 Cholecalciferol (Vit D3) 125 Mcg Capsule (5,000 Units) GT 125 mcg DAILY MUSA Administration Clopidogrel Bisulfate 75 mg 01/16/25 10:00 01/19/25 07:47 Clopidogrel Bisulfate 75 Mg Tablet GT 75 mg DAILY MUSA Administration Furosemide 40 mg 01/17/25 10:00 01/19/25 09:54 Furosemide 40 Mg/4 Ml Vial IV 40 mg BIDLX MUSA Administration Protocol Heparin Sodium (Porcine) 5,000 unit 01/16/25 14:00 01/19/25 06:34 Heparin Injection (Vial) 5,000 Unit/Ml Vial SC 5,000 unit Q8 MUSA Administration Propofol 1,000 mg in 100 mls @ 4.536 mls/hr 01/15/25 16:25 01/19/25 11:00 Diprivan CONT INF 20 mcg/kg/min .Q12H MUSA 9.1 mls/hr Titration Protocol 10 MCG/KG/MIN Pantoprazole Sodium 40 mg/ 100 mls @ 300 mls/hr 01/15/25 22:00 01/19/25 11:12 Sodium Chloride IV Infused Q12 MUSA Infusion Norepinephrine Bitartrate 8 mg 250 mls @ 9.375 mls/hr 01/15/25 16:30 01/19/25 11:00 / Sodium Chloride CONT INF 0 mcg/min .[id number] MUSA 0 mls/hr Titration Protocol 5 MCG/MIN Piperacillin Sod/Tazobactam 50 mls @ 12.5 mls/hr 01/15/25 22:00 01/19/25 10:38 Sod 3.375 gm/ Sodium Chloride IV Infused Q8 MUSA Infusion Fentanyl 100 mls @ 2.5 mls/hr 01/15/25 19:30 01/19/25 11:11 CONT INF 75 mcg/hr UD MUSA 7.5 mls/hr Titration Protocol 25 MCG/HR Enteral Nutritional Formula 1,000 mls @ 45 mls/hr 01/17/25 09:40 01/19/25 07:44 Vital Af 1.2 Butch Liquid GT Infused .[id number] MUSA Infusion Midodrine 10 mg 01/16/25 08:00 01/19/25 07:47 Midodrine Hcl 5 Mg Tablet GT 10 mg TIDCM MUSA Administration Ondansetron HCl 4 mg 01/11/25 16:03 Ondansetron 4 Mg/2 Ml Vial IV Q8H PRN PRN NAUSEA/VOMITING Oxycodone HCl 5 - 10 mg 01/15/25 18:11 Oxycodone 5 Mg Tablet GT Q4H PRN PRN Pain Score 1-10 Pramipexole Dihydrochloride 1.5 mg 01/15/25 22:00 01/18/25 21:06 Pramipexole Di-Hcl 0.5 Mg Tablet GT 1.5 mg QHS MUSA Administration Sodium Chloride 10 - 40 ml 01/11/25 16:11 01/19/25 09:57 0.9% Saline Lock 10 Ml Syringe IV 40 ml UD PRN Administration SALINE FLUSH Tizanidine HCl 2 mg 01/15/25 18:11 Tizanidine Hcl 2 Mg Tablet GT TID PRN MUSCLE SPASM Vancomycin HCl 125 mg 01/16/25 00:00 01/19/25 06:32 Vancomycin 125 Mg/5 Ml Susp Po.Syringe GT 125 mg Q6 MUSA Administration Medical Records Data Attestation: I reviewed the patient's medical records Lab / Micro Data Attestation: I reviewed the patient's lab results. 01/19/25 07:50 01/19/25 07:50 Labs: Laboratory Results - last 24 hr 01/19/25 07:50: WBC 12.2 H, RBC 2.85 L, Hgb 8.9 L, Hct 27.3 L, MCV 95.8, MCH 31.2, MCHC 32.6, RDW Std Deviation 53.4 H, RDW Coeff of Ha 15.4 H, Plt Count 126 L, MPV 10.9, Sodium 145, Potassium 3.3, Chloride 110 H, Carbon Dioxide 22.0, Anion Gap 13, BUN 17, Creatinine 1.46 H, Estim Creat Clear Calc 25.94 L, Est GFR (MDRD) Non-Af 35 L, BUN/Creatinine Ratio 11.8, Glucose 138 H, Calcium 7.6, Phosphorus 3.3, Magnesium 1.4 L, Total Bilirubin 0.42, AST 33 H, ALT 17, A lkaline Phosphatase 125 H, Total Protein 5.4 L, Albumin 2.4 L, Globulin 3.1, A lbumin/Globulin Ratio 0.8 L ABG Data ABG results: ABG 01/19/25 05:38 Specimen Type ART Sample Site R Radial pH 7.48 H Bicarbonate Actual 23.7 Total CO2 25 Base Excess 0 O2 Saturation 97 O2 % 30.0 ABG pCO2 31.5 L ABG pO2 82 Mj Test Positive Respiration Rate 14 O2 Delivery Device Adult Vent Vent Mode AC Tidal Volume 450.0 POC PEEP 5 Attestation: I personally reviewed and interpreted this ABG as follows: Interpretation: respiratory alkalosis Rhythm Strip Rhythm Strip: Sinus Rhythm Rate: 90 Ectopy: None Imaging Radiology Impression Chest X-Ray 01/19/25 05:10 IMPRESSION: Overall improving lung aeration, but persisting qplue-thwvfsa-haqs-left basilar airspace disease. Reading Location: [place] [address] Assessment and Plan . Assessment and plan: Assesment: Hypoxemic Respiratory Failure Sepsis/Shock Achalasia Aspiration Pneumonia/Pneumonitis BERNARDO C dif Colitis -add precedex and see if we can wean other sedatives down/off -SAT/SBT as tolerated; likely have a window of opportunity in the next few days -cont vasopressor support as indicated; BP seems to follow sedation trends -agree with efforts diurese as tolerated -nutritional support with TFs -cont tx for c dif Critical Care Time: 33 minutes The entirety of this encounter was done via Telemedicine Physical Exam Narrative G- Intubated/sedated ENT- ETT in place CV- RRR nl s1 s2 no mrg L- CTA and well synchronized with vent Ab- s nt nd + BS Ext- tr edema Subjective Subjective RN reports that pt worked with PT this AM. Became tachypnic/tachcardic with SAT.
[2025-01-19] MEDS: fentaNYL drip 100 ML 7.5 MCG CONT INF (14:30)
[2025-01-19] MEDS: Propofol 10MG/Ml 1,000 MG/100 ML Bottle 9.1 MG CONT INF (14:31)
[2025-01-19] MEDS: Vital AF 1.2 Cal Liquid 1,000 ML 45 ML GT (14:40)
[2025-01-19] MEDS: dexMEDEtomidine 400 MCG in 0.9% Normal Saline (100mL Bag) 96 ML 9.5 MCG CONT INF (17:07)
[2025-01-19] MEDS: 0.9% Normal Saline 250 ML IV.SOLN. IV (17:34)
[2025-01-19] MEDS: Norepinephrine 8 MG in 0.9% Normal Saline (250mL Bag) 242 ML 9.4 MG CONT INF (17:47)
[2025-01-20] VITALS (36 sets, daily range): BP systolic 88–153; BP diastolic 45–73; PULSE 65–90; RESP 14–30; TEMP 34.4–37.6; O2SAT 93–98; BMI 29.7
[2025-01-20] MEDS: Vancomycin 125 MG/5 ML Susp PO.SYRINGE GT ×4 (00:30→18:16)
[2025-01-20] MEDS: dexMEDEtomidine 400 MCG in 0.9% Normal Saline (100mL Bag) 96 ML 9.5 MCG CONT INF (02:41)
[2025-01-20] MEDS: Chlorhexidine 15 ML PO ×3 (04:16→22:04)
[2025-01-20] MEDS: fentaNYL drip 100 ML 7.5 MCG CONT INF (06:16)
[2025-01-20] MEDS: Piperacil/Tazobactam 3.375 GM in 0.9% Normal Saline (50mL MB+) 50 ML IV ×3 (06:17→22:01)
[2025-01-20] MEDS: Vital AF 1.2 Cal Liquid 1,000 ML 45 ML GT (06:20)
[2025-01-20] MEDS: Heparin Injection (Vial) 5,000 UNIT/ML VIAL 5000 UNIT SC ×3 (06:25→22:02)
[2025-01-20 06:58] LABS: Hematocrit 25.1 % (37-47); Hemoglobin 8.1 g/dL (12.0-15.0); Immature Granulocytes Count 0.060 X10^3/uL (0.0-0.0); Mean Corp Hgb Conc 32.3 g/dL (32-36); Mean Corpuscular Volume 96.2 fL (81-99); Mean Platelet Vol. 11.1 fl (6.2-12.0); NRBC Flagged by Analyzer 0 % (0-5); POSITIVE DIFFERENTIAL YES; Platelet Count 105 K/mm3 (150-450); RBC Distribution Width CV 15.6 % (11.6-14.6); RBC Distribution Width SD 53.7 fl (35.1-43.9); Red Blood Count 2.61 M/mm3 (4.2-5.4); White Blood Count 7.0 K/mm3 (4.4-11.0)
[2025-01-20] MEDS: Budesonide Respules 0.5 MG/2 ML AMPUL.NEB. INHALATION ×2 (07:04→19:15)
[2025-01-20 07:26] LABS: Anion Gap 13 (5-15); BUN 19 mg/dL (4-19); BUN/Creat Ratio 14.7 RATIO (10-20); Calcium,Total 7.4 mg/dL (7.6-11.0); Carbon Dioxide 23.3 mmol/L (21.0-32.0); Chloride 110 mmol/L (98-108); Estimated Creatinine Clearance 28.56 ml/min (50-250); Glucose 128 mg/dL (70-99); Potassium 2.7 mmol/L (3.3-5.1)
--- NOTE | 2025-01-20 07:32 | PCM.PN.HOSP ---
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 Has not had any loose bowel movement for the past 48 hours. Potassium down to 2.7 this a.m. corrected per protocol also requested for magnesium and phosphorus Objective Data Objective Data Vital Signs: Vital Signs Temp Pulse Resp BP Pulse Ox O2 Del Method O2 Flow Rate 97.4 F L 65 14 98/45 L 96 Mechanical Ventilator 2 01/20/25 04:00 01/20/25 07:04 01/20/25 07:04 01/20/25 05:00 01/20/25 07:04 01/20/25 05:00 01/15/25 14:52 FiO2 30 01/20/25 07:04 Oxygen Flow Rate (L/min) 2 Oxygen Delivery Method Mechanical Ventilator Weight: 73.2 kg Body Mass Index (BMI) 29.7 Intake & Output: Intake and Output for Last 24 Hours 01/18/25 01/19/25 01/20/25 23:59 23:59 23:59 Intake Total 1496.68 / 1523.58 1391.69 / 1451.69 1010.58 / 1010.58 Output Total 2100 / 2230 3080 / 3080 575 / 575 Balance -603.32 / -706.42 -1688.31 / -1628.31 435.58 / 435.58 Lab / Micro Data 01/20/25 06:37 01/20/25 06:37 Labs: Laboratory Results - last 24 hr 01/19/25 07:50: WBC 12.2 H, RBC 2.85 L, Hgb 8.9 L, Hct 27.3 L, MCV 95.8, MCH 31.2, MCHC 32.6, RDW Std Deviation 53.4 H, RDW Coeff of Ha 15.4 H, Plt Count 126 L, MPV 10.9, Sodium 145, Potassium 3.3, Chloride 110 H, Carbon Dioxide 22.0, Anion Gap 13, BUN 17, Creatinine 1.46 H, Estim Creat Clear Calc 25.94 L, Est GFR (MDRD) Non-Af 35 L, BUN/Creatinine Ratio 11.8, Glucose 138 H, Calcium 7.6, Phosphorus 3.3, Magnesium 1.4 L, Total Bilirubin 0.42, AST 33 H, ALT 17, Alkaline Phosphatase 125 H, Total Protein 5.4 L, Albumin 2.4 L, Globulin 3.1, Albumin/Globulin Ratio 0.8 L 01/20/25 06:37: WBC 7.0, RBC 2.61 L, Hgb 8.1 L, Hct 25.1 L, MCV 96.2, MCH 31.0, MCHC 32.3, RDW Std Deviation 53.7 H, RDW Coeff of Ha 15.6 H, Plt Count 105 L, MPV 11.1, Immature Gran % (Auto) 0.900, Neut % (Auto) 84.6 H, Lymph % (Auto) 7.6 L, [place] % (Auto) 3.9, Eos % (Auto) 2.7, Baso % (Auto) 0.3, Absolute Neuts (auto) 5.9, Absolute Lymphs (auto) 0.53 L, Nucleated RBC % 0, Sodium 146 H, Potassium 2.7 L*, Chloride 110 H, Carbon Dioxide 23.3, Anion Gap 13, BUN 19, Creatinine 1.30 H, Estim Creat Clear Calc 28.56 L, Est GFR (MDRD) Non-Af 40 L, BUN/Creatinine Ratio 14.7, Glucose 128 H, Calcium 7.4 L Micro: Microbiology 01/15/25 18:27 Blood Culture (Wb) - Anticubital Left Blood Culture - Preliminary No growth in 48 hours. 01/15/25 17:45 Blood Culture (Wb) - Pic Blood Culture - Preliminary No growth in 48 hours. 01/15/25 17:58 Sputum, Induced/Lukens Gram Stain - Final 01/15/25 17:58 Sputum, Induced/Lukens Respiratory Culture - Final Yeast, not Sera albicans 01/11/25 22:14 Blood Culture (Wb) - Arm Left Blood Culture - Final No growth in 5 days. 01/11/25 14:15 Urine, Clean Catch Urine Culture - Final Klebsiella pneumoniae sp pneum 01/11/25 22:04 Nasal Secretion MRSA (PCR) - Final 01/11/25 23:00 Mucosa - Nasopharyngeal SARS-CoV-2, Influenza & RSV (PCR) - Final 01/11/25 11:05 Stool Stool Occult Blood (ROYAL) - Final Occult Blood Positive Rhythm Strip Rhythm Strip: Sinus Rhythm Rate: 90 Ectopy: None Physical Exam Narrative GENERAL: Awake on the vent HEENT: Atraumatic; normocephalic EYES; Anicteric, Normal Conjunctiva, ET tube in place NECK; supple, normal thyroid, RESPIRATORY: Diminished to auscultation CARDIOVASCULAR: Regular S1 S2, GI: soft, normoactive bowel sounds, : No Renal angle tenderness; EXTREMITIES: Edema of both upper and lower extremities MUSCULOSKELETAL: Left wrist in a brace NEURO: Awake; no lateralizing signs. SKIN: No Rash PSYCH; Flat affect Assessment & Plan Assessment/Plan (1) Sepsis: PLAN: Plan Patient is an 89-year-old lady who presented following a fall. Patient was found to be hypotensive on admission. Subsequently diagnosed with septic shock secondary to combination of pneumonia as well as acute cystitis admitted to the intensive care unit for further evaluation and management 1. Septic shock ? Due to combination of acute cystitis as well as pneumonia. Treatment was initiated per protocol with IV fluid resuscitation, pressors after patient failed to respond to IV fluids broad-spectrum antibiotic therapy after cultures have been sent. Patient presents with weaned off on the morning of 01/15/2025 ? 01/16/2025; patient aspirated during EGD. Patient sepsis protocol reinitiated with IV fluid resuscitation per protocol broad-spectrum antibiotic therapy repeat cultures sent and patient placed on Levophed titrated to keep MAP greater than 60 ? 01/17/2025; patient continues to spike fevers. Culture sent on admission results still pending. ? 01/19/2024; repeat blood cultures still negative to date. The patient still remains on Levophed ? 01/19/2025; patient still remains on Levophed currently at 2 mcg/min 01/20/2025; patient Levophed weaned off 2. Acute hypoxic respiratory failure ? Secondary to aspiration pneumonia following patient EGD. Initial vent settings written. Consult placed to resource conservation specialist for subsequent management of vent ? 01/17/2025: Chest x-ray obtained this a.m. did small bilateral effusions, partial improvement on the right.. Bilateral central and basilar lung opacities, likely a combination of edema and atelectasis. Attempt at weaning unsuccessful ? 01/18/2025; patient remains on the vent ?01/19/2025; plans for patient to undergo weaning trial this ? 01/20/2025; patient remains on the vent. Subsequent vent management deferred to pulmonary medicine 4. Acute on chronic congestive heart failure with preserved ejection fraction ? Patient went into fluid overload following aggressive IV fluid resuscitation. Patient has been started on diuretic therapy with close monitoring of I's and O's ? 01/18/2025; patient responding to diuretic therapy 5. Hypokalemia ? Corrected protocol repeat labs ordered in a.m. for follow ? 01/20/2025; patient potassium significantly down to 2.7 additional replacement given repeated potassium levels after 4 hours of IV replacement. Also requested for phosphorus and magnesium levels 6. Metabolic acidosis ? Secondary to sepsis patient did receive bicarb drip. Subsequent monitoring with daily BMPs ordered 7. Pneumonia - Suspected to be secondary to streptococcal pneumonia, blood cultures were sent on admission so far negative to date. Patient has been managed with levofloxacin as well as supplemental oxygen titrated to keep saturation greater than 90 01/16/2025; patient aspirated during the procedure necessitating adjustment of antibiotic therapy with discontinuation of Levaquin and initiation of piperacillin tazobactam 8. Acute cystitis with Klebsiella pneumonia ? Patient has been managed appropriately with levofloxacin ? 01/16/2025; Levaquin was discontinued the day prior 9. Achalasia ? Patient underwent EGD by Dr. Real on 01/15/2025. Findings and procedures performed as below - Food in the esophagus. Removal was successful. Mildly severe erosive esophagitis with no bleeding. Biopsied. Severe Schatzki ring. Dilated. Abnormal esophageal motility, established achalasia. Injected with botulinum toxin. No gross lesions in the entire stomach. 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 Patient was restarted on p.o. vancomycin. Has had recurrence of her diarrhea. Repeat studies not performed since patient diagnosis was less than a month ? 01/20/2025; patient has not had any diarrhea for the past 48 hours 11. Lower GI bleed ? Patient had recently undergone colonoscopy by Dr. Real on 01/01/2025 which demonstrated diverticulosis and nonbleeding external and internal hemorrhoids. 12. Anemia ? Secondary to acute on chronic disorder monitoring H&H and transfuse if patient becomes symptomatic or hemoglobin falls below 7 13. Acute kidney injury superimposed on chronic kidney disease stage III ? Suspected to be secondary to ATN from sepsis creatinine admission was 3.03 patient has responded to IV fluid creatinine as of 01/15/2025 was 1.39 14. Elevated troponin ? Secondary to demand ischemia patient presentation not consistent with ACS 15. Fall with left wrist fracture ? Patient was seen in consultation by orthopedic surgery manage with wrist immobilization as well as pain meds 16. Diabetes mellitus type 2 ? Per history currently not on any antidiabetic medications 17. Dyslipidemia ?Patient is on statin therapy, continued at home dose 18. Essential hypertension ? Patient antihypertensives held given patient low blood pressure 19. Peripheral vascular disease ? With known history of carotid artery stenosis patient is on clopidogrel as well as statin therapy 20. DVT prophylaxis ? Bilateral SCDs only given patient GI bleed 21. Thrombocytopenia ? Patient platelet count continues to decline slowly we will continue with monitor with daily CBC with differential Charges/Coding Visit Charges Inpatient E&M: 16165 Subs Hosp L3
[2025-01-20] MEDS: Cholecalciferol (Vit D3) 125 MCG CAPSULE (5,000 UNITS) GT (07:58)
[2025-01-20] MEDS: CHLORHEXIDINE GLUC 2% CLOTH 1 EACH TOWELETTE TOPICAL (09:05)
[2025-01-20] MEDS: Potassium Chloride 10mEq/100mL 10 MEQ/100 ML IV.SOLN. 100 MEQ IV BOLUS ×4 (09:05→12:07)
[2025-01-20 09:09] LABS: Magnesium 1.3 mg/dL (1.5-2.2)
[2025-01-20] MEDS: dexMEDEtomidine 400 MCG in 0.9% Normal Saline (100mL Bag) 96 ML 17.1 MCG CONT INF (10:38)
[2025-01-20] MEDS: Pantoprazole Sodium 40 MG in 0.9% Normal Saline (100mL MB+) 100 ML 330 MG IV ×2 (10:41→22:01)
--- NOTE | 2025-01-20 13:33 | CPS ---
pt put on SBT per [facility]. SBT for 30 minutes. pt became tachypneic into the high 30s-40s. SBT stopped at 1400
--- NOTE | 2025-01-20 13:36 | PN.CC_ITS ---
Objective Data Objective Data Vital Signs: Vital Signs Last response 3 Temperature 37.3 C 01/20/25 12:00 Temperature Source Core 01/20/25 12:00 Pulse Rate 77 01/20/25 12:00 Pulse Strength Weak (1+) 01/19/25 22:00 Respiratory Rate 17 01/20/25 12:00 Respiratory Effort Mechanically Ventilated 01/20/25 08:00 Respiratory Depth Normal 01/20/25 08:00 Respiratory Pattern Normal 01/20/25 09:58 Blood Pressure 126/56 H 01/20/25 12:00 Blood Pressure Mean 79 01/20/25 12:00 Blood Pressure Source Monitor 01/20/25 12:00 Blood Pressure Position Semi-Fowlers 01/20/25 12:00 Blood Pressure Location Right Forearm 01/20/25 12:00 Pulse Ox 95 01/20/25 12:00 Oxygen Delivery Method Mechanical Ventilator 01/20/25 12:00 Oxygen Flow Rate (L/min) 2 01/15/25 14:52 Fraction of Inspired Oxygen (FIO2) 30 01/20/25 12:00 I&O: I&O Last 24 Hours 3 01/19/25 01/20/25 01/20/25 23:59 11:59 23:59 Intake Total 364.72 / 1451.69 1639.05 / 1822.82 183.77 / 1822.82 Output Total 2875 / 3080 575 / 1400 825 / 1400 Balance -2510.28 / -1628.31 1064.05 / 422.82 -641.23 / 422.82 I&O: Total Stay 3 01/11/25 10:13 thru 01/20/25 12:30 Intake Total 31118.15 Output Total 06971 Balance 8621.15 Current Meds Ordered / Administered: Current meds ordered / Administered 3 Generic Name Dose Route Start Last Admin Trade Name Freq PRN Reason Stop Dose Admin Acetaminophen 1,000 mg 01/15/25 18:24 01/18/25 12:33 Acetaminophen 650 Mg/20 Ml Udc GT 1,000 mg Q6H PRN Administration Pain Score 1-10 Albuterol Sulfate 2.5 mg 01/15/25 16:23 01/15/25 19:20 Albuterol 2.5 Mg/3 Ml Vial.Neb. INHALATION 2.5 mg Q2H PRN PRN Administration DYSPNEA/WHEEZING/SOB Albuterol/Ipratropium 3 ml 01/11/25 21:45 01/20/25 09:57 Ipratropium/Albuterol Sulfate 3 Ml Ampul.Neb INHALATION 3 ml Q4H.RT MUSA Administration Atorvastatin Calcium 40 mg 01/15/25 22:00 01/19/25 22:25 Atorvastatin Calcium 40 Mg Tablet GT 40 mg QHS MUSA Administration Budesonide 0.5 mg 01/14/25 12:45 01/20/25 07:04 Budesonide Respules 0.5 Mg/2 Ml Ampul.Neb. INHALATION 0.5 mg BID.RT MUSA Administration Chlorhexidine Gluconate 15 ml 01/15/25 22:00 01/20/25 07:58 Chlorhexidine 15 Ml PO 15 ml BID MUSA Administration Chlorhexidine Gluconate 1 each 01/17/25 10:00 01/20/25 09:05 Chlorhexidine Gluc 2% Cloth 1 Each [place] TOPICAL 1 each DAILY MUSA Administration Cholecalciferol 125 mcg 01/16/25 10:00 01/20/25 07:58 Cholecalciferol (Vit D3) 125 Mcg Capsule (5,000 Units) GT 125 mcg DAILY MUSA Administration Clopidogrel Bisulfate 75 mg 01/16/25 10:00 01/20/25 07:58 Clopidogrel Bisulfate 75 Mg Tablet GT 75 mg DAILY MUSA Administration Furosemide 40 mg 01/17/25 10:00 01/20/25 10:38 Furosemide 40 Mg/4 Ml Vial IV 40 mg [id number] MUSA Administration Protocol Heparin Sodium (Porcine) 5,000 unit 01/16/25 14:00 01/20/25 06:25 Heparin Injection (Vial) 5,000 Unit/Ml Vial SC 5,000 unit Q8 MUSA Administration Pantoprazole Sodium 40 mg/ 100 mls @ 300 mls/hr 01/15/25 22:00 01/20/25 11:06 Sodium Chloride IV Infused Q12 MUSA Infusion Norepinephrine Bitartrate 8 mg 250 mls @ 9.375 mls/hr 01/15/25 16:30 01/20/25 07:36 / Sodium Chloride CONT INF Not Given .[id number] MUSA Protocol 5 MCG/MIN Piperacillin Sod/Tazobactam 50 mls @ 12.5 mls/hr 01/15/25 22:00 01/20/25 13:27 Sod 3.375 gm/ Sodium Chloride IV 12.5 mls/hr Q8 MUSA Administration Fentanyl 100 mls @ 2.5 mls/hr 01/15/25 19:30 01/20/25 12:00 CONT INF 75 mcg/hr UD MUSA 7.5 mls/hr Titration Protocol 25 MCG/HR Enteral Nutritional Formula 1,000 mls @ 45 mls/hr 01/17/25 09:40 01/20/25 08:00 Vital Af 1.2 Butch Liquid GT 45 mls/hr .[id number] MUSA Infusion Dexmedetomidine HCl 400 mcg/ 100 mls @ 9.525 mls/hr 01/19/25 16:15 01/20/25 12:30 Sodium Chloride CONT INF 1.1 mcg/kg/hr .[id number] MUSA 21 mls/hr Titration Protocol 0.5 MCG/KG/HR Midodrine 10 mg 01/16/25 08:00 01/20/25 12:29 Midodrine Hcl 5 Mg Tablet GT 10 mg TIDCM MUSA Administration Ondansetron HCl 4 mg 01/11/25 16:03 Ondansetron 4 Mg/2 Ml Vial IV Q8H PRN PRN NAUSEA/VOMITING Oxycodone HCl 5 - 10 mg 01/15/25 18:11 Oxycodone 5 Mg Tablet GT Q4H PRN PRN Pain Score 1-10 Pramipexole Dihydrochloride 1.5 mg 01/15/25 22:00 01/19/25 22:25 Pramipexole Di-Hcl 0.5 Mg Tablet GT 1.5 mg QHS MUSA Administration Sodium Chloride 10 - 40 ml 01/11/25 16:11 01/19/25 09:57 0.9% Saline Lock 10 Ml Syringe IV 40 ml UD PRN Administration SALINE FLUSH Sodium Chloride 250 ml 01/19/25 15:07 01/19/25 17:34 0.9% Normal Saline 250 Ml Iv.Soln. IV 250 ml PRN PRN Administration IV flush Tizanidine HCl 2 mg 01/15/25 18:11 Tizanidine Hcl 2 Mg Tablet GT TID PRN MUSCLE SPASM Vancomycin HCl 125 mg 01/16/25 00:00 01/20/25 12:29 Vancomycin 125 Mg/5 Ml Susp Po.Syringe GT 125 mg Q6 MUSA Administration Lab / Micro Data Attestation: I reviewed the patient's lab results. 01/20/25 06:37 01/20/25 06:37 Labs: Laboratory Results - last 24 hr 01/20/25 06:37: WBC 7.0, RBC 2.61 L, Hgb 8.1 L, Hct 25.1 L, MCV 96.2, MCH 31.0, MCHC 32.3, RDW Std Deviation 53.7 H, RDW Coeff of Ha 15.6 H, Plt Count 105 L, MPV 11.1, Immature Gran % (Auto) 0.900, Neut % (Auto) 84.6 H, Lymph % (Auto) 7.6 L, [place] % (Auto) 3.9, Eos % (Auto) 2.7, Baso % (Auto) 0.3, Absolute Neuts (auto) 5.9, Absolute Lymphs (auto) 0.53 L, Nucleated RBC % 0, Sodium 146 H, Potassium 2.7 L*, Chloride 110 H, Carbon Dioxide 23.3, Anion Gap 13, BUN 19, Creatinine 1.30 H, Estim Creat Clear Calc 28.56 L, Est GFR (MDRD) Non-Af 40 L, BUN/Creatinine Ratio 14.7, Glucose 128 H, Calcium 7.4 L, Phosphorus 3.5, M agnesium 1.3 L Rhythm Strip Rhythm Strip: Sinus Rhythm Rate: 90 Ectopy: None Assessment and Plan . Assessment and plan: Assesment: Hypoxemic Respiratory Failure Sepsis/Shock Achalasia Aspiration Pneumonia/Pneumonitis BERNARDO C dif Colitis -more alert with precedex on -start SBT and see if we can fabio her to pass/get extubated in next 24-48 hrs -RN replacing K -cont vasopressor support as indicated; BP seems to follow sedation trends and currently off levophed -cont to diurese as tolerated -nutritional support with TFs -cont tx for c dif Critical Care Time: 33 minutes The entirety of this encounter was done via Telemedicine Physical Exam Narrative G- Intubated/alert ENT- ETT in place CV- RRR nl s1 s2 no mrg L- CTA and well synchronized with vent Ab- s nt nd + BS Ext- tr edema Neuro- moving extremities, following commands Subjective Subjective More alert. Following commands.
[2025-01-20 14:34] LABS: Anion Gap 14 (5-15); BUN 19 mg/dL (4-19); BUN/Creat Ratio 15.4 RATIO (10-20); Calcium,Total 7.6 mg/dL (7.6-11.0); Carbon Dioxide 22.9 mmol/L (21.0-32.0); Chloride 108 mmol/L (98-108); Estimated Creatinine Clearance 30.68 ml/min (50-250); Glucose 134 mg/dL (70-99); Potassium 3.5 mmol/L (3.3-5.1)
[2025-01-20] MEDS: dexMEDEtomidine 400 MCG in 0.9% Normal Saline (100mL Bag) 96 ML 19.1 MCG CONT INF ×2 (15:30→21:15)
[2025-01-20] MEDS: fentaNYL drip 100 ML 10 MCG CONT INF (21:52)
[2025-01-21] VITALS (36 sets, daily range): BP systolic 87–142; BP diastolic 38–107; PULSE 75–137; RESP 14–36; TEMP 37.2–38.7; O2SAT 90–99; BMI 30.4
[2025-01-21] MEDS: Vancomycin 125 MG/5 ML Susp PO.SYRINGE GT ×3 (01:12→23:18)
[2025-01-21] MEDS: dexMEDEtomidine 400 MCG in 0.9% Normal Saline (100mL Bag) 96 ML 22.9 MCG CONT INF (02:22)
[2025-01-21] MEDS: Piperacil/Tazobactam 3.375 GM in 0.9% Normal Saline (50mL MB+) 50 ML IV ×3 (05:19→21:24)
[2025-01-21] MEDS: Heparin Injection (Vial) 5,000 UNIT/ML VIAL 5000 UNIT SC ×3 (05:29→21:24)
--- NOTE | 2025-01-21 05:30 | RAD_ITS ---
PROCEDURE: CHEST 1 VIEW (PORTABLE) 01/21/2025 REASON FOR EXAM: DYSPNEA TECHNIQUE: Frontal view of the chest. COMPARISON: 01/19/2025 FINDINGS: Improved pulmonary venous congestion changes and regressed bilateral perihilar and lower lung zones volume overload changes versus infiltrates. Regressed bilateral pleural effusion. Stable cardiac size and aortic calcifications. Stable osseous structures. Endotracheal tube is seen in satisfactory placement. Nasogastric tube is seen ending in the stomach fundus. RAD/Chest 1 View (Portable) IMPRESSION: Improved pulmonary venous congestion changes. Regressed bilateral perihilar and lower lung zones volume overloaded changes ve rsus infiltrates. Decreased bilateral pleural effusion. Reading Location: [facility]
[2025-01-21 05:37] LABS: Hematocrit 24.9 % (37-47); Hemoglobin 8.1 g/dL (12.0-15.0); Immature Granulocytes Count 0.060 X10^3/uL (0.0-0.0); Mean Corp Hgb Conc 32.5 g/dL (32-36); Mean Corpuscular Volume 95.8 fL (81-99); Mean Platelet Vol. 11.6 fl (6.2-12.0); NRBC Flagged by Analyzer 0 % (0-5); Platelet Count 118 K/mm3 (150-450); RBC Distribution Width CV 15.2 % (11.6-14.6); RBC Distribution Width SD 53.7 fl (35.1-43.9); Red Blood Count 2.60 M/mm3 (4.2-5.4); White Blood Count 8.1 K/mm3 (4.4-11.0)
[2025-01-21 06:14] LABS: AST(SGOT) 31 U/L (<=31); Alanine Aminotransfer ALT/SGPT 16 U/L (<=34); Albumin, Serum 2.3 g/dL (3.4-4.8); Alkaline Phosphatase 110 U/L (35-104); Anion Gap 13 (5-15); BUN 19 mg/dL (4-19); BUN/Creat Ratio 17.0 RATIO (10-20); Calcium,Total 7.6 mg/dL (7.6-11.0); Carbon Dioxide 24.7 mmol/L (21.0-32.0); Chloride 104 mmol/L (98-108); Estimated Creatinine Clearance 33.34 ml/min (50-250); Globulin 2.8 g/dL (2.2-4.2); Glucose 134 mg/dL (70-99); Potassium 2.7 mmol/L (3.3-5.1)
[2025-01-21] MEDS: Potassium Chloride Oral Soln 20 MEQ/15 ML UDC 60 MEQ NG (06:39)
--- NOTE | 2025-01-21 06:46 | PCM.PN.INT ---
Assessment & Plan Assessment/Plan (1) Sepsis: PLAN: Plan RECOMMENDATIONS: 1. Proceed with a trial of extubation. 2. Once extubated, wean supplemental oxygen to maintain saturations at or above 90%. 3. Wean from Precedex completely. 4. Diuresis as tolerated by hemodynamics and renal function. 5. Continue antimicrobial therapy. 6. Continue scheduled bronchodilators. 7. Speech therapy to evaluate the patient. 8. Continue appropriate DVT prophylaxis. IMPRESSIONS: 1. Septic shock Resolved. Clinical concern for underlying urinary tract source of infection +/- aspiration pneumonia. The patient ultimately developed fluid refractory hypotension, which required vasopressor support. The patient has been since weaned from Levophed and remains hemodynamically stable. Antibiotics will be continued. 2. Acute hypoxemic respiratory failure The patient has a known history of achalasia and was taken for endoscopic evaluation on January 15, at which time, the patient decompensated from a respiratory perspective and was intubated. She was noted to have significant food in the esophagus, with concern for an acute aspiration event leading to her respiratory decompensation. With supportive care, including antimicrobials and invasive mechanical ventilatory support, the patient was able to be extubated on January 21. Supplemental oxygen will be weaned to maintain saturations at or above 90%. Speech therapy will be consulted to evaluate the patient. Diuretics will be continued as tolerated by hemodynamics and renal function. 3. Acute kidney injury Resolved. Likely prerenal in etiology. Creatinine has stabilized at this time. Continue to monitor urine output. No current indication for renal replacement therapy. 4. History of achalasia The patient is status post endoscopic evaluation on January 15, during which time, the patient was noted to have a significant amount of food in the entire esophagus. A severe Schatzki ring was noted which was dilated. Botox was also injected. Continue current medical management per gastroenterology recommendations. 5. Recent left wrist fracture/recent C. difficile colitis on vancomycin/anemia/peripheral arterial disease/hypothyroidism Complicates care, management, recovery and prognosis. Continue supportive measures as noted above. PT/OT to work with the patient. TIME: 34 minutes of critical care time, independent of procedures, was spent addressing the patient's septic shock, acute hypoxemic respiratory failure, acute kidney injury, review of all data and collaboration with care team. Subjective Subjective The patient was seen and examined at the bedside this morning. Events from the last 24 hours have been reviewed. The patient is currently afebrile, hemodynamically stable and maintaining appropriate oxygen saturations on assist-control mode mechanical ventilation with an FiO2 requirement of 30% and PEEP of 5. The patient is documented to be overall net +8.9 L for the hospitalization. She has been responding to diuretic therapy. White blood cell count is normal. Hemoglobin is stable. Potassium is low at 2.7. Creatinine is within normal limits. Following my initial evaluation of the patient, she was placed on a spontaneous breathing trial, which she ultimately completed without complication. The patient is alert and able to follow commands appropriately. Therefore, the patient was extubated and transitioned to nasal cannula supplemental oxygen. Objective Data Objective Data The patient's most recent lab work, culture data and imaging studies have all been personally reviewed. Surface echocardiogram demonstrated mild concentric LVH with stage I diastolic dysfunction. Urine culture was positive for Klebsiella pneumonia. Sputum culture is currently pending. Vital Signs: Vital Signs Temp Pulse Resp BP Pulse Ox O2 Del Method O2 Flow Rate 99.0 F 84 14 106/49 L 96 Mechanical Ventilator 2 01/21/25 01:00 01/21/25 06:00 01/21/25 06:00 01/21/25 06:00 01/21/25 06:00 01/21/25 06:00 01/15/25 14:52 FiO2 30 01/21/25 06:00 Oxygen Flow Rate (L/min) 2 Oxygen Delivery Method Mechanical Ventilator Weight: 166 lb 3.657 oz Body Mass Index (BMI) 30.4 Intake & Output: Intake and Output for Last 24 Hours 01/19/25 01/20/25 01/21/25 23:59 23:59 23:59 Intake Total 1391.69 / 1451.69 2325.12 / 2325.12 1309.91 / 1309.91 Output Total 3080 / 3080 2700 / 2700 300 / 300 Balance -1688.31 / -1628.31 -374.88 / -374.88 1009.91 / 1009.91 Lab / Micro Data Attestation: I reviewed the patient's lab results. 01/21/25 05:23 01/21/25 05:23 Labs: Laboratory Results - last 24 hr 01/20/25 06:37: WBC 7.0, RBC 2.61 L, Hgb 8.1 L, Hct 25.1 L, MCV 96.2, MCH 31.0, MCHC 32.3, RDW Std Deviation 53.7 H, RDW Coeff of Ha 15.6 H, Plt Count 105 L, MPV 11.1, Immature Gran % (Auto) 0.900, Neut % (Auto) 84.6 H, Lymph % (Auto) 7.6 L, [place] % (Auto) 3.9, Eos % (Auto) 2.7, Baso % (Auto) 0.3, Absolute Neuts (auto) 5.9, Absolute Lymphs (auto) 0.53 L, Nucleated RBC % 0, Sodium 146 H, Potassium 2.7 L*, Chloride 110 H, Carbon Dioxide 23.3, Anion Gap 13, BUN 19, Creatinine 1.30 H, Estim Creat Clear Calc 28.56 L, Est GFR (MDRD) Non-Af 40 L, BUN/Creatinine Ratio 14.7, Glucose 128 H, Calcium 7.4 L, Phosphorus 3.5, Magnesium 1.3 L 01/20/25 13:25: Sodium 144, Potassium 3.5, Chloride 108, Carbon Dioxide 22.9, Anion Gap 14, BUN 19, Creatinine 1.21 H, Estim Creat Clear Calc 30.68 L, Est GFR (MDRD) Non-Af 43 L, BUN/Creatinine Ratio 15.4, Glucose 134 H, Calcium 7.6 01/21/25 05:23: WBC 8.1, RBC 2.60 L, Hgb 8.1 L, Hct 24.9 L, MCV 95.8, MCH 31.2, MCHC 32.5, RDW Std Deviation 53.7 H, RDW Coeff of Ha 15.2 H, Plt Count 118 L, MPV 11.6, Immature Gran % (Auto) 0.700, Neut % (Auto) 84.0 H, Lymph % (Auto) 8.6 L, [place] % (Auto) 4.2, Eos % (Auto) 2.1, Baso % (Auto) 0.4, Absolute Neuts (auto) 6.8, Absolute Lymphs (auto) 0.70 L, Nucleated RBC % 0, Sodium 142, Potassium 2.7 L*, Chloride 104, Carbon Dioxide 24.7, Anion Gap 13, BUN 19, Creatinine 1.13, Estim Creat Clear Calc 33.34 L, Est GFR (MDRD) Non-Af 47 L, BUN/Creatinine Ratio 17.0, Glucose 134 H, Calcium 7.6, Total Bilirubin 0.35, AST 31, ALT 16, Alkaline Phosphatase 110 H, Total Protein 5.1 L, Albumin 2.3 L, Globulin 2.8, Albumin/Globulin Ratio 0.9 Micro: Microbiology 01/15/25 18:27 Blood Culture (Wb) - Anticubital Left Blood Culture - Preliminary No growth in 48 hours. 01/15/25 17:45 Blood Culture (Wb) - Pic Blood Culture - Preliminary No growth in 48 hours. 01/15/25 17:58 Sputum, Induced/Lukens Gram Stain - Final 01/15/25 17:58 Sputum, Induced/Lukens Respiratory Culture - Final Yeast, not Sera albicans 01/11/25 22:14 Blood Culture (Wb) - Arm Left Blood Culture - Final No growth in 5 days. 01/11/25 14:15 Urine, Clean Catch Urine Culture - Final Klebsiella pneumoniae sp pneum 01/11/25 22:04 Nasal Secretion MRSA (PCR) - Final 01/11/25 23:00 Mucosa - Nasopharyngeal SARS-CoV-2, Influenza & RSV (PCR) - Final 01/11/25 11:05 Stool Stool Occult Blood (ROYAL) - Final Occult Blood Positive ABG Data ABG results: ABG 01/17/25 05:49 Specimen Type ART Sample Site R Radial pH 7.46 H Bicarbonate Actual 19.1 L Total CO2 20 Base Excess -5 L O2 Saturation 98 O2 % 30.0 ABG pCO2 26.6 L ABG pO2 93 Mj Test Positive Respiration Rate 16 O2 Delivery Device Adult Vent Vent Mode AC Tidal Volume 450.0 POC PEEP 5 Radiography Diagnostic Testing: Radiology Impression Chest X-Ray 01/21/25 05:30 IMPRESSION: Improved pulmonary venous congestion changes. Regressed bilateral perihilar and lower lung zones volume overloaded changes versus infiltrates. Decreased bilateral pleural effusion. Reading Location[facility] Rhythm Strip Rhythm Strip: Sinus Rhythm Rate: 90 Ectopy: None Physical Exam Const alert and no apparent distress Constitutional Narrative: Remains intubated and mechanically ventilated. General Appearance: cooperative HEENT normocephalic HEENT Narrative: Facial ecchymoses noted Mouth: endotracheal tube in place and OG tube in place Eyes EOMs intact bilaterally and conjunctivae normal Neck supple General: trachea midline Chest inspection of chest normal Resp Auscultation: diminished lung sounds; Negative for rales, rhonchi or wheezes Cardio regular rate and regular rhythm GI normal to inspection, nondistended, normoactive bowel sounds Extremity Extremity Narrative: Scattered ecchymoses on extremities General Extremity: edema; Negative for clubbing Neuro Neuro Narrative: Alert and able to follow simple commands appropriately. Charges/Coding Procedures Hospitalists Procedures: 53405 Critical Care 1st Hr
[2025-01-21] MEDS: Budesonide Respules 0.5 MG/2 ML AMPUL.NEB. INHALATION ×2 (07:02→18:30)
[2025-01-21] MEDS: Potassium Chloride Oral Soln 20 MEQ/15 ML UDC 40 MEQ NG (07:31)
[2025-01-21] MEDS: Cholecalciferol (Vit D3) 125 MCG CAPSULE (5,000 UNITS) GT (07:31)
[2025-01-21] MEDS: Pantoprazole Sodium 40 MG in 0.9% Normal Saline (100mL MB+) 100 ML 330 MG IV (07:35)
[2025-01-21] MEDS: CHLORHEXIDINE GLUC 2% CLOTH 1 EACH TOWELETTE TOPICAL (07:35)
[2025-01-21] MEDS: Chlorhexidine 15 ML PO (07:36)
--- NOTE | 2025-01-21 07:45 | NURSING ---
Patient extubated by Respiratory therapy, this RN and Dr Delvalle at bedside. Patient placed on 4L Nasal cannula. Patient tolerated wiithout complication.
[2025-01-21] MEDS: Potassium Chloride 20mEq/100mL 20 MEQ/100 ML IV.SOLN. 100 MEQ IV BOLUS ×2 (09:16→11:31)
--- NOTE | 2025-01-21 16:16 | PN.HOSP_ITS ---
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 Patient is requiring 2 L nasal cannula oxygen at this time. Objective Data Objective Data Vital Signs: Vital Signs Temp Pulse Resp BP Pulse Ox O2 Del Method O2 Flow Rate 101.2 F H 115 H 22 H 113/59 L 94 Nasal Cannula 2 01/21/25 15:00 01/21/25 16:00 01/21/25 16:00 01/21/25 16:00 01/21/25 16:00 01/21/25 16:00 01/21/25 16:00 FiO2 30 01/21/25 07:30 Oxygen Flow Rate (L/min) 2 Oxygen Delivery Method Nasal Cannula Weight: 75.4 kg Body Mass Index (BMI) 30.4 Intake & Output: Intake and Output for Last 24 Hours 01/19/25 01/20/25 01/21/25 23:59 23:59 23:59 Intake Total 1391.69 / 1451.69 2325.12 / 2325.12 1696.62 / 1696.62 Output Total 3080 / 3080 2700 / 2700 600 / 600 Balance -1688.31 / -1628.31 -374.88 / -374.88 1096.62 / 1096.62 Lab / Micro Data 01/21/25 05:23 01/21/25 05:23 Labs: Laboratory Results - last 24 hr 01/21/25 05:23: WBC 8.1, RBC 2.60 L, Hgb 8.1 L, Hct 24.9 L, MCV 95.8, MCH 31.2, MCHC 32.5, RDW Std Deviation 53.7 H, RDW Coeff of Ha 15.2 H, Plt Count 118 L, MPV 11.6, Immature Gran % (Auto) 0.700, Neut % (Auto) 84.0 H, Lymph % (Auto) 8.6 L, [place] % (Auto) 4.2, Eos % (Auto) 2.1, Baso % (Auto) 0.4, Absolute Neuts (auto) 6.8, Absolute Lymphs (auto) 0.70 L, Nucleated RBC % 0, Sodium 142, Potassium 2.7 L*, Chloride 104, Carbon Dioxide 24.7, Anion Gap 13, BUN 19, Creatinine 1.13, E stim Creat Clear Calc 33.34 L, Est GFR (MDRD) Non-Af 47 L, BUN/Creatinine Ratio 17.0, Glucose 134 H, Calcium 7.6, Total Bilirubin 0.35, AST 31, ALT 16, Alkaline Phosphatase 110 H, Total Protein 5.1 L, Albumin 2.3 L, Globulin 2.8, Albumin/Globulin Ratio 0.9 Micro: Microbiology 01/15/25 18:27 Blood Culture (Wb) - Anticubital Left Blood Culture - Final No growth in 5 days. 01/15/25 17:45 Blood Culture (Wb) - Pic Blood Culture - Final No growth in 5 days. 01/15/25 17:58 Sputum, Induced/Lukens Gram Stain - Final 01/15/25 17:58 Sputum, Induced/Lukens Respiratory Culture - Final Yeast, not Sera albicans 01/11/25 22:14 Blood Culture (Wb) - Arm Left Blood Culture - Final No growth in 5 days. 01/11/25 14:15 Urine, Clean Catch Urine Culture - Final Klebsiella pneumoniae sp pneum 01/11/25 22:04 Nasal Secretion MRSA (PCR) - Final 01/11/25 23:00 Mucosa - Nasopharyngeal SARS-CoV-2, Influenza & RSV (PCR) - Final 01/11/25 11:05 Stool Stool Occult Blood (ROYAL) - Final Occult Blood Positive Radiography Diagnostic Testing: Radiology Impression Chest X-Ray 01/21/25 05:30 IMPRESSION: Improved pulmonary venous congestion changes. Regressed bilateral perihilar and lower lung zones volume overloaded changes versus infiltrates. Decreased bilateral pleural effusion. Reading Location: [place] [address] Rhythm Strip Rhythm Strip: Sinus Rhythm Rate: 90 Ectopy: None Physical Exam Const alert, oriented x3 and no apparent distress General Appearance: cooperative, well kempt and well developed Orientation / Consciousness: awake, oriented to person, oriented to place and oriented to time HEENT normocephalic, head/scalp atraumatic and moist oral mucous membranes Eyes PERRL, EOMs intact bilaterally and conjunctivae normal Neck supple, no JVD, thyroid normal and no carotid bruits General: trachea midline Resp normal respiratory effort, no retractions and no use of accessory muscles Resp Narrative: Patient has expiratory rhonchi bilaterally Auscultation: Negative for rales, rhonchi or wheezes Cardio regular rate, regular rhythm, S1 normal heart sound, S2 normal heart sound, no murmurs, no rub and no gallops GI normal to inspection, nondistended, normoactive bowel sounds, soft to palpation, non-tender and non-distended Extremity Extremity Narrative: Patient has a cast over her left forearm and wrist Skin no rashes or lesions noted General Skin Exam: no breakdown Neuro oriented x3, CN's II-XII intact bilaterally, moves all extremities, no focal motor deficits and no sensory deficits noted Sensorium / Orientation: awake and alert Speech: speech normal Psych affect normal Assessment & Plan Assessment/Plan (1) Pneumonia: PLAN: Plan 1. Septic shock-secondary to acute cystitis and pneumonia, patient remains on Zosyn #2 achalasia-patient underwent esophageal dilatation and Botox injection #3 acute hypoxic respiratory failure-patient was extubated this morning, she is currently on nasal cannula oxygen #4 esophagitis-patient remains on PPI #5 hyperlipidemia-patient is on Lipitor #6 C. difficile colitis-patient remains on p.o. vancomycin while she is on antibiotic coverage for pneumonia, after the Zosyn is discontinued, it may be considered to stop her oral vancomycin #7 generalized debility-patient will need placement at least temporarily in a [facility] facility for rehab services Total clinical time spent by myself addressing the patient's medical issues, reviewing all of her data, and collaborating with patient's care team: 35 minutes Charges/Coding Visit Charges Inpatient E&M: 58880 Subs Hosp L2
[2025-01-21] MEDS: Albuterol 2.5 MG/3 ML VIAL.NEB. INHALATION (16:31)
[2025-01-21 18:46] LABS: Allen Test Positive; Base Excess 6 mmol/L (-2 to +2); FI02 2.0; PO2 103 mmHG (75-100); SITE R Radial; SO2 99 % (95-99)
--- NOTE | 2025-01-21 19:27 | PCM.PN.BLA ---
Progress Note Patient is able to be extubated today. She is tolerating liquid diet. She denies any chest pain or shortness of breath. She is status post food bolus removal of her entire esophagus with previous diagnosis of achalasia. Physical Exam Narrative GENERAL: Awake on the vent HEENT: Atraumatic; normocephalic EYES; Anicteric, Normal Conjunctiva, ET tube in place NECK; supple, normal thyroid, RESPIRATORY: Diminished to auscultation CARDIOVASCULAR: Regular S1 S2, GI: soft, normoactive bowel sounds, : No Renal angle tenderness; EXTREMITIES: Edema of both upper and lower extremities MUSCULOSKELETAL: Left wrist in a brace NEURO: Awake; no lateralizing signs. SKIN: No Rash PSYCH; Flat affect Assessment & Plan Assessment/Plan (1) Sepsis: PLAN: Plan Patient is an 89-year-old lady who presented following a fall. Patient was found to be hypotensive on admission. Subsequently diagnosed with septic shock secondary to combination of pneumonia and acute cystitis. She developed worsening esophageal dysphagia. She underwent evaluation was discovered to have severe food impaction secondary to achalasia. The food was removed and Botox was ingested into the lower esophageal sphincter. However during the initial intubation of the esophagus she had a a lot of food that was regurgitated back into the mouth and she did have some aspiration. The patient was intubated for airway support prior to finishing her EGD so the food could be removed and her achalasia could be treated. She is currently extubated and doing well off of pressor therapy still antibiotics. Recommend barium esophagram prior to advancing diet as tolerated. Visit Charges Inpatient E&M: 77502 [facility] L3
[2025-01-21] MEDS: Acetaminophen 650 MG/20 ML UDC 1000 MG GT (19:46)
[2025-01-21] MEDS: Pantoprazole Sodium 40 MG in 0.9% Normal Saline (100mL MB+) 100 ML 300 MG IV (21:23)
[2025-01-22] VITALS (23 sets, daily range): BP systolic 88–132; BP diastolic 31–56; PULSE 81–122; RESP 19–38; TEMP 36.6–37.6; O2SAT 92–98; BMI 27.6
[2025-01-22] MEDS: 0.9% Saline Lock 10 ML Syringe IV (03:25)
[2025-01-22 03:41] LABS: Hematocrit 24.1 % (37-47); Hemoglobin 7.8 g/dL (12.0-15.0); Immature Granulocytes Count 0.030 X10^3/uL (0.0-0.0); Mean Corp Hgb Conc 32.4 g/dL (32-36); Mean Corpuscular Volume 95.3 fL (81-99); Mean Platelet Vol. 11.4 fl (6.2-12.0); NRBC Flagged by Analyzer 0 % (0-5); Platelet Count 137 K/mm3 (150-450); RBC Distribution Width CV 15.4 % (11.6-14.6); RBC Distribution Width SD 53.0 fl (35.1-43.9); Red Blood Count 2.53 M/mm3 (4.2-5.4); White Blood Count 6.2 K/mm3 (4.4-11.0)
[2025-01-22 04:32] LABS: Anion Gap 14 (5-15); BUN 22 mg/dL (4-19); BUN/Creat Ratio 14.5 RATIO (10-20); Calcium,Total 7.9 mg/dL (7.6-11.0); Carbon Dioxide 25.3 mmol/L (21.0-32.0); Chloride 107 mmol/L (98-108); Estimated Creatinine Clearance 24.28 ml/min (50-250); Glucose 91 mg/dL (70-99); Potassium 3.6 mmol/L (3.3-5.1)
[2025-01-22 04:48] LABS: Magnesium 1.1 mg/dL (1.5-2.2)
[2025-01-22] MEDS: Vancomycin 125 MG/5 ML Susp PO.SYRINGE GT ×3 (05:36→17:52)
[2025-01-22] MEDS: Heparin Injection (Vial) 5,000 UNIT/ML VIAL 5000 UNIT SC ×3 (05:36→21:45)
[2025-01-22] MEDS: Piperacil/Tazobactam 3.375 GM in 0.9% Normal Saline (50mL MB+) 50 ML IV (05:37)
[2025-01-22] MEDS: Magnesium Sulfate 4gm/100mL 4 GM/100 ML IV.SOLN. IV (06:19)
--- NOTE | 2025-01-22 06:36 | PCM.PN.INT ---
Assessment & Plan Assessment/Plan (1) Sepsis: PLAN: Plan RECOMMENDATIONS: 1. Continue to wean supplemental oxygen to maintain saturations at or above 90%. 2. Maintain n.p.o. status, pending further evaluation by speech therapy. Recommend barium esophagram. 3. Discontinued Lasix. 4. Aggressive electrolyte repletion. 5. Zosyn can be discontinued at this time. 6. Continue scheduled bronchodilators. 7. Encourage incentive spirometer use and mobilize patient as tolerated. 8. Continue appropriate DVT prophylaxis. IMPRESSIONS: 1. Septic shock Resolved. Clinical concern for underlying urinary tract source of infection +/- aspiration pneumonia. The patient ultimately developed fluid refractory hypotension, which required vasopressor support. The patient has been since weaned from Levophed and remains hemodynamically stable. The patient's antibiotic treatment course will be completed today. 2. Acute hypoxemic respiratory failure Improving. The patient has a known history of achalasia and was taken for endoscopic evaluation on January 15, at which time, the patient decompensated from a respiratory perspective and was intubated. She was noted to have significant food in the esophagus, with concern for an acute aspiration event leading to her respiratory decompensation. With supportive care, including antimicrobials and invasive mechanical ventilatory support, the patient was able to be extubated on January 21. Supplemental oxygen will be weaned to maintain saturations at or above 90%. Speech therapy is following to assist with dietary advancement strategies. In light of the patient's interval increase in creatinine, we will plan to discontinue diuretics today. 3. Acute kidney injury Likely prerenal in etiology. Creatinine has stabilized at this time. Continue to monitor urine output. No current indication for renal replacement therapy. 4. History of achalasia The patient is status post endoscopic evaluation on January 15, during which time, the patient was noted to have a significant amount of food in the entire esophagus. A severe Schatzki ring was noted which was dilated. Botox was also injected. Continue current medical management per gastroenterology recommendations. 5. Recent left wrist fracture/recent C. difficile colitis on vancomycin/anemia/peripheral arterial disease/hypothyroidism Complicates care, management, recovery and prognosis. Continue supportive measures as noted above. PT/OT to work with the patient. This note was generated with [employer]ation software. It may contain incorrect words, spelling, and punctuation that were not noted in checking the note before signing. Subjective Subjective The patient was seen and examined at the bedside this morning. Events from the last 24 hours have been reviewed. The patient is currently afebrile, hemodynamically stable and maintaining appropriate oxygen saturations on 3 L/min via nasal cannula. The patient is currently documented to be overall net +6.6 L for the hospitalization. Hemoglobin was noted to be 7.8 g/dL this morning with a platelet count of 137,000. Sodium has increased to 146 with a creatinine of 1.48. Magnesium was low at 1.1. In light of the patient's increasing creatinine, diuretics were discontinued this morning. The patient currently denies any resting dyspnea. However, she does report left wrist pain. The patient was evaluated by speech therapy yesterday who recommended ongoing n.p.o. status, with tentative plans for MBSS. The patient's CODE STATUS was again confirmed with her this morning to be full CODE STATUS. Objective Data Objective Data The patient's most recent lab work, culture data and imaging studies have all been personally reviewed. Surface echocardiogram demonstrated mild concentric LVH with stage I diastolic dysfunction. Urine culture was positive for Klebsiella pneumonia. Vital Signs: Vital Signs Temp Pulse Resp BP Pulse Ox O2 Del Method O2 Flow Rate 99.5 F H 117 H 30 H 88/55 L 94 Nasal Cannula 3 01/22/25 06:00 01/22/25 06:00 01/22/25 06:00 01/22/25 06:00 01/22/25 06:00 01/22/25 06:00 01/22/25 06:00 FiO2 30 01/21/25 07:30 Oxygen Flow Rate (L/min) 3 Oxygen Delivery Method Nasal Cannula Weight: 150 lb 12.739 oz Body Mass Index (BMI) 27.6 Intake & Output: Intake and Output for Last 24 Hours 01/20/25 01/21/25 01/22/25 23:59 23:59 23:59 Intake Total 2325.12 / 2325.12 1848.29 / 1848.29 50 / 50 Output Total 2700 / 2700 1800 / 1800 1300 / 1300 Balance -374.88 / -374.88 48.29 / 48.29 -1250 / -1250 Lab / Micro Data Attestation: I reviewed the patient's lab results. 01/22/25 03:35 01/22/25 03:35 Labs: Laboratory Results - last 24 hr 01/22/25 03:35: WBC 6.2, RBC 2.53 L, Hgb 7.8 L, Hct 24.1 L, MCV 95.3, MCH 30.8, MCHC 32.4, RDW Std Deviation 53.0 H, RDW Coeff of Ha 15.4 H, Plt Count 137 L, MPV 11.4, Immature Gran % (Auto) 0.500, Neut % (Auto) 73.4 H, Lymph % (Auto) 17.2 L, [place] % (Auto) 6.8, Eos % (Auto) 1.6, Baso % (Auto) 0.5, Absolute Neuts (auto) 4.5, Absolute Lymphs (auto) 1.06, Nucleated RBC % 0, Sodium 146 H, Potassium 3.6, Chloride 107, Carbon Dioxide 25.3, Anion Gap 14, BUN 22 H, Creatinine 1.48 H, Estim Creat Clear Calc 24.28 L, Est GFR (MDRD) Non-Af 34 L, BUN/Creatinine Ratio 14.5, Glucose 91, Calcium 7.9, Phosphorus 3.3, Magnesium 1.1 L Micro: Microbiology 01/15/25 18:27 Blood Culture (Wb) - Anticubital Left Blood Culture - Final No growth in 5 days. 01/15/25 17:45 Blood Culture (Wb) - Pic Blood Culture - Final No growth in 5 days. 01/15/25 17:58 Sputum, Induced/Lukens Gram Stain - Final 01/15/25 17:58 Sputum, Induced/Lukens Respiratory Culture - Final Yeast, not Sera albicans 01/11/25 22:14 Blood Culture (Wb) - Arm Left Blood Culture - Final No growth in 5 days. 01/11/25 14:15 Urine, Clean Catch Urine Culture - Final Klebsiella pneumoniae sp pneum 01/11/25 22:04 Nasal Secretion MRSA (PCR) - Final 01/11/25 23:00 Mucosa - Nasopharyngeal SARS-CoV-2, Influenza & RSV (PCR) - Final 01/11/25 11:05 Stool Stool Occult Blood (ROYAL) - Final Occult Blood Positive ABG Data ABG results: ABG 01/21/25 18:42 Specimen Type ART Sample Site R Radial pH 7.55 H Bicarbonate Actual 28.0 H Total CO2 29 Base Excess 6 H O2 Saturation 99 O2 % 2.0 ABG pCO2 32.1 L ABG pO2 103 H Mj Test Positive O2 Delivery Device Cannula Vent Mode Not entered Radiography Diagnostic Testing: Radiology Impression Chest X-Ray 01/21/25 05:30 IMPRESSION: Improved pulmonary venous congestion changes. Regressed bilateral perihilar and lower lung zones volume overloaded changes versus infiltrates. Decreased bilateral pleural effusion. Reading Location: [place] [address] Rhythm Strip Rhythm Strip: Sinus Rhythm Rate: 90 Ectopy: None Physical Exam Const alert, oriented x3 and no apparent distress General Appearance: cooperative HEENT normocephalic and moist oral mucous membranes HEENT Narrative: Facial ecchymoses noted Eyes EOMs intact bilaterally, conjunctivae normal and no scleral icterus Neck supple General: trachea midline Chest inspection of chest normal Resp no use of accessory muscles Effort and Inspection: able to speak in complete sentences and tachypneic Auscultation: diminished lung sounds; Negative for rales, rhonchi or wheezes Cardio S1 normal heart sound and S2 normal heart sound Rate: tachycardic GI normal to inspection, nondistended, normoactive bowel sounds Extremity Extremity Narrative: Scattered ecchymoses on extremities General Extremity: edema; Negative for clubbing Neuro CN's II-XII intact bilaterally, moves all extremities and no focal motor deficits Psych cooperative and affect normal Charges/Coding Visit Charges Inpatient E&M: 14164 Subs Hosp L3
[2025-01-22] MEDS: Budesonide Respules 0.5 MG/2 ML AMPUL.NEB. INHALATION ×2 (07:27→19:23)
[2025-01-22] MEDS: Pantoprazole Sodium 40 MG in 0.9% Normal Saline (100mL MB+) 100 ML 330 MG IV ×2 (09:14→21:44)
--- NOTE | 2025-01-22 09:25 | ST.MBS ---
Modified Barium Swallow Patient Information Study Date: 01/22/25 Study Time: 10:30 Direct Billable Minutes: 103 Total Minutes procedure & reportin Diagnosis: PNA J18.9 Referring Physician: Chuck Reynolds Reason for Referral: Objectively assess swallow function, assess risk for aspiration, and determine recommendations for least restrictive diet textures and compensatory strategies to improve safety of swallow. Medical History: PMH: GI bleed, Achalasia, Dysphagia, Cancer, Thyroid disease, TIA, Acute diverticulitis, Difficulty chewing, GERD, Former smoker, SOB on exertion, HTN, Chronic respiratory failure, COPD, DM, HFpEF, CKD stage 3, Bilateral carotid artery stenosis ? See EMR for full PMH. Pt is familiar to this [employer] w/ hx of mild-moderate oropharyngeal dysphagia and esophageal dysphagia w/ MBSS 06/07/2024. See MBSS results and recommendations below. The patient presented to [facility] ED by the squad after complaints of increased L wrist pain (recent fx from fall), dark stools (recent colonoscopy due to GI bleed 01/01/2025). Of note, pt had recent stool test positive for C diff, on po vancomycin. After ED work up, patient was admitted to ICU for septic shock secondary to pneumonia and UTI. Pt underwent EGD 01/15/2025, which revealed food-filled esophagus (removed), abnormal motility of the esophagus (known achalasia, injected w/ botox), severe Schatzki ring at the GE junction (dilated, mild improvement), and severe erosive esophagitis. Pt decompensated from a respiratory perspective and remained intubated. Pt extubated 01/21/[address] evaluation to assess pt for swallowing difficulty. BSE 01/21/2025 recommended strict NPO w/ recommendation for MBSS prior to diet advancement. Re-evaluation at bedside today revealed no s/s of aspiration w/ purees or thin liquids. [employer] recommended MBSS be completed today. MBSS 06/07/2024 Diagnosis, Impressions, and Recommendations: Diagnosis: Mild-moderate oropharyngeal dysphagia R13.12; Esophageal dysphagia R13.14 Impression: The oral phase is primarily marked by... -Decreased mastication. One large and one small piece of un-chewed cookie. [employer] EDUCATED PT IN NEED FOR THOROUGH CHEWING. Continue Easy to Chew (IDDSI Level 7) textures. -Decreased bolus control w/ >1/2 thin liquid bolus in pharynx prior to swallow onset w/ sequential sips. The pharyngeal phase is primarily marked by... -Delayed swallow onset. -Decreased pharyngeal contraction w/ trace-mild pharyngeal residue due to decreased TB retraction and pharyngeal stripping wave. -Decreased airway closure during the swallow due to decreased anterior hyoid excursion and laryngeal elevation. Consistent laryngeal penetration of thin liquids, which didn't fully eject (trace residue in laryngeal vestibule). No aspiration was observed. The esophageal phase is primarily marked by... -Tortuous esophagus. -Retention of pudding and liquids in lower esophagus w/ retrograde flow. -Retention of cookie throughout esophagus, which mostly cleared when provided thin liquid wash. document embedded image Image 1. Esophageal screen at the start of thin liquid wash for cookie. Tortuous esophagus. Un-chewed cookie present in lower esophagus, which this liquid wash did help to clear through the LES. Recommendations Diet: Regular Textures (EASY TO CHEW TEXTURES - IDDSI Level 7) and Thin Liquids Compensatory Strategies: Small Bites (CHEW THOROUGHLY), Small Sips, Slow Rate, Alternate bites/solids and sips/liquids (1:1 RATIO) and Sitting upright (DURING AND 60 MIN AFTER ORAL INTAKE) Supervision: 1:1 Close Supervision (Direct Supervision During Meals) Recommend Repeat Modified Barium Swallow: TBD Need for Skilled Speech Therapy Services: Yes Comment: -Train the patient in use of strategies to decrease risk for choking, aspiration, and reflux aspiration. -Ongoing assessment of diet tolerance of recommended textures. Recommend downgrade to softer textures if demonstrating inadequate mastication at meals or if pt has increased s/s of reflux/regurgitation. -Train the patient in oropharyngeal exercise program to improve bolus control, tongue base retraction, swallow onset, airway closure, and pharyngeal contraction (lingual resistance, Tav[place], [place], Effortful). Recommended Referrals: GI Consult (Continue to follow w/ OP GI) Current Diet Ordered: NPO Dentition: Missing Teeth (Dentures not present, [employer] asked RN to request dentures from family) Mental Status: WNL Respiratory Status: Oxygenating on 2L/M nasal cannula Penetration-Aspiration Scale Penetration-Aspiration Scale: OBJECTIVE ASSESSMENT OF SWALLOW FUNCTION (QUANTITATIVE ? PER TRIAL): PENETRATION / ASPIRATION SCALE (ROBBINS): 1 = does not enter airway 2 = enters airway/above vocal folds/ejected 3 = enters airway/above vocal folds/not ejected 4 = enters airway/contacts vocal folds/ejected 5 = enters airway/contacts vocal folds/not ejected 6 = enters airway/below vocal folds/ejected 7 = enters airway/below vocal folds/not ejected despite effort 8 = enters airway/below vocal folds/no effort VIDEOFLOROSCOPIC SCALE SCORE (ROBBINS): Grade I = aspiration of material that has penetrated into the laryngeal vestibule, intact cough reflex Grade II = aspiration < 10 % of the bolus, intact cough reflex Grade III = aspiration of < 10 % of the bolus, reduced cough reflex or aspiration of > 10 % of the bolus, intact cough reflex Grade IV = aspiration of > 10 % of the bolus, reduced cough reflex Penetration-Aspiration Scale Score Thin Liquid via teaspoon: Result: 3= enters airways/above vocal folds/not ejected Thin Liquid via teaspoon Trial 2: Result: 8= enters airway/below vocal folds/no effort Comment: Cued cough and re-swallow = somewhat effective. [place] Thick Liquid via teaspoon: Result: 2= enter airway/above vocal folds/ejected [place] Thick Liquid via teaspoon Trial 2: Result: 2= enter airway/above vocal folds/ejected [place] Thick Liquid via small single sip: cup: Result: 3= enters airways/above vocal folds/not ejected [place] Thick Liquid via large single sip: cup Effortful swallow: Result: 2= enter airway/above vocal folds/ejected Pudding via teaspoon: Result: 1= does not enter airway Comment: Esophageal screen - Retention of pudding in the lower esophagus w/ retrograde flow to the middle esophagus. [place] Thick Liquid via large single sip: cup: Result: 2= enter airway/above vocal folds/ejected Thin Liquid via small single sip: cup Effortful swallow: Result: 8= enters airway/below vocal folds/no effort Thin Liquid via teaspoon Chin tuck: Result: 2= enter airway/above vocal folds/ejected Comment: Cued cough and re-swallow = somewhat effective. Thin Liquid via teaspoon Chin tuck Trial 2: Result: 2= enter airway/above vocal folds/ejected Thin Liquid via small single sip: cup Chin tuck: Result: 8= enters airway/below vocal folds/no effort Comment: Cued cough and re-swallow = somewhat effective. [place] Thick Liquid via small single sip: cup Trial 2: Result: 2= enter airway/above vocal folds/ejected Comment: Esophageal screen - Mild retention in lower esophagus. / Cookie: Result: 1= does not enter airway Comment: Esophageal screen - Retention of cookie in the lower esophagus. Oral Phase Labial Seal: No Labial Escape Tongue Control During Bolus Hold: Posterior escape of greater than half of bolus Bolus Preparation/Mastication: Disorganized chewing/mashing with solid pieces of bolus unchewed Bolus Transport/Lingual Motion: Repetitive/disorganized tongue motion Oral Residue: Residue collection on oral structures (piecemeal cookie and some large sips of liquids) Pharyngeal Phase Initiation of Pharyngeal Swallow: Bolus head in pyriforms (laryngeal vestibule w/ certain liquid trials) Soft Palate Elevation: Trace column of contrast/air between soft palate and pharyngeal wall Laryngeal Elevation: Partial superior movement thyroid cart/partial apprx aryt-epig petiole Anterior Hyoid Excursion: Partial anterior movement Epiglottic Movement: Partial inversion Laryngeal Vestibule Closure at Height of Swallow: Incomplete; narrow column of air/contrast in laryngeal vestibule Pharyngeal Stripping Wave: Present - diminished Pharyngoesophageal Segment Opening: Parital distension and partial duration; parital obstruction of flow Tongue Base Retraction: Wide column of contrast between tongue base & post. pharyngeal wall Pharyngeal Residue: Majority of contrast within or on pharyngeal structures (~50% of cookie on the first swallow, somewhat cleared w/ independent second swallow) Esophageal Phase Esophageal Clearance: Esophageal retention w/ retrograde flow below pharyngoesophageal seg. Diagnosis/Impression Diagnosis: Moderate oropharyngeal dysphagia R13.12; Esophageal dysphagia R13.14 Impression: The oral phase is marked by... -Poor mastication of regular textured cookie (07/21 Starla Doone) w/ large pieces of cookie appearing un-chewed increasing risk for chooking. -Poor bolus control w/ premature posterior loss of >1/2 of various consistencies to the pharynx prior to swallow onset. Some liquid trials spilled to the laryngeal vestibule prior to swallow onset, increasing risk for pre-pranidal aspiration. -Lingual pumping for A-P transport. -Piecemeal deglutition of cookie and large sips, which mostly cleared with independent use of a second swallow as needed. The pharyngeal phase is marked by... -Delayed swallow onset. -Decreased airway closure due to decreased anterior hyoid excursion, partial epiglottic inversion, and decreased laryngeal elevation w/ resulting SILENT aspiration of thin liquids via tsp, thin liquids via cup w/ chin tuck, and thin liquids via cup w/ effortful swallow. -Decreased pharyngeal motility due to decreased TB retraction and pharyngeal stripping wave w/ moderate pharyngeal residue of cookie, which somewhat cleared w/ a second swallow. Cookie was somewhat un-chewed, so [employer] has concern for increased choking risk w/ regular textured foods. The esophageal phase is marked by... -Esophagus appears tortuous. -Retention of pudding in the lower esophagus w/ retrograde flow to the middle esophagus. -Retention of cookie in the lower esophagus. Recommendations Diet: Puree Textures and Mildly Thick Liquids Comment: STOP meal if increased coughing, s/s of reflux, and/or regurgitation and resume meal at a later time. Medications whole in puree. Compensatory Strategies: Small Bites, Small Sips (Hard/effortful swallows w/ liquids), Slow Rate, Multiple Swallows (Pt independently completes double swallows), Alternate bites/solids and sips/liquids and Sitting upright (During and 60min after po intake) Supervision: 1:1 Direct Supervision Recommend Repeat Modified Barium Swallow: Yes (Repeat MBSS in 1-2 weeks after implementation of oropahryngeal exercise program) Need for Skilled Speech Therapy Services: Yes Comment: -Train the patient in strategies to decrease risk for aspiration and reflux aspiration. -Ongoing assessment of diet tolerance. Will plan to trial soft solids in upcoming sessions to consider further diet advancement, especially if family is able to bring in the patient's dentures. Consider pt for trials of thin liquids w/ [employer] only utilizing tsp sips and chin tuck. Recommend repeat MBSS prior to diet advancement of liquids due to silent aspiration of thin liquids. -Train the patient in oropharyngeal exercise program (lingual resistance, effortful, [place], Tavon). Recommended Referrals: GI Consult (Continue to follow w/ GI. Pt is not safe for participation in esophagram.) Education Completed: 1. Described result of evaluation., 2. Pt understands evaluation & agrees with goals and treatment plan. and 7. Pt requires further education on strategies & risks. Status Active ST Patient: Active Contact Information [facility] Speech Therapy:: Unique Musa M.A. [facility]-[employer]? Speech-Language Pathologist?? [facility] [address] [place] [address]? [email or web address]?? [phone]
[2025-01-22] MEDS: Cholecalciferol (Vit D3) 125 MCG CAPSULE (5,000 UNITS) PO (10:26)
--- NOTE | 2025-01-22 16:48 | CASEMGMT ---
Social Work SW did make a referral back to TCU for pt, will follow up w/TCU tomorrow to see if they can accept pt when pt is medically ready and start precert. RON Mojica
--- NOTE | 2025-01-22 17:18 | PN.HOSP_ITS ---
Reason for Visit Reason for Visit: Diagnoses Sepsis, unspecified organism (01/11/25) Pneumonia, unspecified organism (01/11/25) Achalasia of cardia (01/11/25) Gastrointestinal hemorrhage, unspecified (01/11/25) Fracture of unspecified carpal bone, left wrist, subsequent encounter for fracture with routine healing (01/11/25) Subjective Subjective Patient was seen and examined today, she is still requiring 2 L of supplemental oxygen but appears comfortable today. Nursing was concerned that the patient has a underlying anxiety problem, I elected to place her on small dose Ativan as needed and this seemed to have helped. Patient is stable for transfer to PCU at this time. Objective Data Objective Data Vital Signs: Vital Signs Temp Pulse Resp BP Pulse Ox O2 Del Method O2 Flow Rate 99.2 F H 81 26 H 115/31 L 98 Nasal Cannula 2 01/22/25 16:00 01/22/25 16:00 01/22/25 16:00 01/22/25 16:00 01/22/25 16:00 01/22/25 16:00 01/22/25 16:00 FiO2 30 01/21/25 07:30 Oxygen Flow Rate (L/min) 2 Oxygen Delivery Method Nasal Cannula Weight: 68.4 kg Body Mass Index (BMI) 27.6 Intake & Output: Intake and Output for Last 24 Hours 01/20/25 01/21/25 01/22/25 23:59 23:59 23:59 Intake Total 2325.12 / 2325.12 1848.29 / 1848.29 300 / 300 Output Total 2700 / 2700 1800 / 1800 1600 / 1600 Balance -374.88 / -374.88 48.29 / 48.29 -1300 / -1300 Lab / Micro Data 01/23/25 04:05 01/23/25 04:05 Labs: Laboratory Results - last 24 hr 01/22/25 03:35: WBC 6.2, RBC 2.53 L, Hgb 7.8 L, Hct 24.1 L, MCV 95.3, MCH 30.8, MCHC 32.4, RDW Std Deviation 53.0 H, RDW Coeff of Ha 15.4 H, Plt Count 137 L, MPV 11.4, Immature Gran % (Auto) 0.500, Neut % (Auto) 73.4 H, Lymph % (Auto) 17.2 L, [place] % (Auto) 6.8, Eos % (Auto) 1.6, Baso % (Auto) 0.5, Absolute Neuts (auto) 4.5, Absolute Lymphs (auto) 1.06, Nucleated RBC % 0, Sodium 146 H, Potassium 3.6, Chloride 107, Carbon Dioxide 25.3, Anion Gap 14, BUN 22 H, C reatinine 1.48 H, Estim Creat Clear Calc 24.28 L, Est GFR (MDRD) Non-Af 34 L, BUN/Creatinine Ratio 14.5, Glucose 91, Calcium 7.9, Phosphorus 3.3, Magnesium 1.1 L Micro: Microbiology 01/15/25 18:27 Blood Culture (Wb) - Anticubital Left Blood Culture - Final No growth in 5 days. 01/15/25 17:45 Blood Culture (Wb) - Pic Blood Culture - Final No growth in 5 days. 01/15/25 17:58 Sputum, Induced/Lukens Gram Stain - Final 01/15/25 17:58 Sputum, Induced/Lukens Respiratory Culture - Final Yeast, not Sera albicans 01/11/25 22:14 Blood Culture (Wb) - Arm Left Blood Culture - Final No growth in 5 days. 01/11/25 14:15 Urine, Clean Catch Urine Culture - Final Klebsiella pneumoniae sp pneum 01/11/25 22:04 Nasal Secretion MRSA (PCR) - Final 01/11/25 23:00 Mucosa - Nasopharyngeal SARS-CoV-2, Influenza & RSV (PCR) - Final 01/11/25 11:05 Stool Stool Occult Blood (ROYAL) - Final Occult Blood Positive ABG Data ABG results: ABG 01/21/25 18:42 Specimen Type ART Sample Site R Radial pH 7.55 H Bicarbonate Actual 28.0 H Total CO2 29 Base Excess 6 H O2 Saturation 99 O2 % 2.0 ABG pCO2 32.1 L ABG pO2 103 H Mj Test Positive O2 Delivery Device Cannula Vent Mode Not entered Rhythm Strip Rhythm Strip: Sinus Rhythm Rate: 90 Ectopy: None Physical Exam Narrative alert, oriented x3 and no apparent distress General Appearance: cooperative, well kempt and well developed Orientation / Consciousness: awake, oriented to person, oriented to place and oriented to time HEENT normocephalic, head/scalp atraumatic and moist oral mucous membranes Eyes PERRL, EOMs intact bilaterally and conjunctivae normal Neck supple, no JVD, thyroid normal and no carotid bruits General: trachea midline Resp normal respiratory effort, no retractions and no use of accessory muscles Resp Narrative: Patient has expiratory rhonchi bilaterally Auscultation: Negative for rales, rhonchi or wheezes Cardio regular rate, regular rhythm, S1 normal heart sound, S2 normal heart sound, no murmurs, no rub and no gallops GI normal to inspection, nondistended, normoactive bowel sounds, soft to palpation, non-tender and non-distended Extremity Extremity Narrative: Patient has a cast over her left forearm and wrist Skin no rashes or lesions noted General Skin Exam: no breakdown Neuro oriented x3, CN's II-XII intact bilaterally, moves all extremities, no focal motor deficits and no sensory deficits noted Sensorium / Orientation: awake and alert Speech: speech normal Psych affect normal Assessment & Plan Assessment/Plan (1) Pneumonia: PLAN: Plan 1. Septic shock-secondary to acute cystitis and pneumonia, patient has completed her course of IV antibiotics #2 achalasia-patient underwent esophageal dilatation and Botox injection #3 acute hypoxic respiratory failure- she is currently on nasal cannula oxygen #4 esophagitis-patient remains on PPI #5 hyperlipidemia-patient is on Lipitor #6 C. difficile colitis-patient remains on p.o. vancomycin #7 generalized debility-patient will need placement at least temporarily in a nursing home facility for rehab services Total clinical time spent by myself addressing the patient's medical issues, reviewing all of her data, and collaborating with patient's care team: 35 minutes Charges/Coding Visit Charges Inpatient E&M: 23745 Subs Hosp L2
--- NOTE | 2025-01-22 21:14 | EX.PCM.PN.GI ---
Subjective Subjective She is status post food bolus removal of her entire esophagus with previous diagnosis of achalasia. She denies shortness of breath. She feels that her voice is much improved from yesterday. She is anxious to have her dentures brought in from home as she feels they will improve her swallowing abilities. Nursing expressed some concern that she may still be having aspiration events with pureed diet and nectar liquids started post MBSS earlier today. Objective Data Objective Data Vital Signs: Vital Signs Temp Pulse Resp BP Pulse Ox O2 Del Method O2 Flow Rate 99.2 F H 100 24 H 115/31 L 94 Nasal Cannula 2.5 01/22/25 16:00 01/22/25 19:24 01/22/25 19:24 01/22/25 16:00 01/22/25 19:25 01/22/25 19:25 01/22/25 19:25 FiO2 30 01/21/25 07:30 Oxygen Flow Rate (L/min) 2.5 Oxygen Delivery Method Nasal Cannula Weight: 150 lb 12.739 oz Body Mass Index (BMI) 27.6 Intake & Output: Intake and Output for Last 24 Hours 01/20/25 01/21/25 01/22/25 23:59 23:59 23:59 Intake Total 2325.12 / 2325.12 1848.29 / 1848.29 300 / 300 Output Total 2700 / 2700 1800 / 1800 1900 / 1900 Balance -374.88 / -374.88 48.29 / 48.29 -1600 / -1600 Lab / Micro Data Attestation: I reviewed the patient's lab results. 01/22/25 03:35 01/22/25 03:35 Labs: Laboratory Results - last 24 hr 01/22/25 03:35: WBC 6.2, RBC 2.53 L, Hgb 7.8 L, Hct 24.1 L, MCV 95.3, MCH 30.8, MCHC 32.4, RDW Std Deviation 53.0 H, RDW Coeff of Ha 15.4 H, Plt Count 137 L, MPV 11.4, Immature Gran % (Auto) 0.500, Neut % (Auto) 73.4 H, Lymph % (Auto) 17.2 L, [place] % (Auto) 6.8, Eos % (Auto) 1.6, Baso % (Auto) 0.5, Absolute Neuts (auto) 4.5, Absolute Lymphs (auto) 1.06, Nucleated RBC % 0, Sodium 146 H, Potassium 3.6, Chloride 107, Carbon Dioxide 25.3, Anion Gap 14, BUN 22 H, Creatinine 1.48 H, Estim Creat Clear Calc 24.28 L, Est GFR (MDRD) Non-Af 34 L, BUN/Creatinine Ratio 14.5, Glucose 91, Calcium 7.9, Phosphorus 3.3, Magnesium 1.1 L Micro: Microbiology 01/15/25 18:27 Blood Culture (Wb) - Anticubital Left Blood Culture - Final No growth in 5 days. 01/15/25 17:45 Blood Culture (Wb) - Pic Blood Culture - Final No growth in 5 days. 01/15/25 17:58 Sputum, Induced/Lukens Gram Stain - Final 01/15/25 17:58 Sputum, Induced/Lukens Respiratory Culture - Final Yeast, not Sera albicans 01/11/25 22:14 Blood Culture (Wb) - Arm Left Blood Culture - Final No growth in 5 days. 01/11/25 14:15 Urine, Clean Catch Urine Culture - Final Klebsiella pneumoniae sp pneum 01/11/25 22:04 Nasal Secretion MRSA (PCR) - Final 01/11/25 23:00 Mucosa - Nasopharyngeal SARS-CoV-2, Influenza & RSV (PCR) - Final 01/11/25 11:05 Stool Stool Occult Blood (ROYAL) - Final Occult Blood Positive Rhythm Strip Rate: 90 Assessment & Plan Assessment/Plan (1) Sepsis: PLAN: Patient is an 89-year-old lady who had presented to [facility] following a fall. Patient was found to be hypotensive on admission and diagnosed with septic shock secondary to combination of pneumonia and acute cystitis. She developed worsening esophageal dysphagia. Upon evaluation was discovered to have severe food impaction due to achalasia. On 01.15.25 the food was removed during EGD and Botox was injected into the lower esophageal sphincter. With initial intubation of the esophagus she had food that was regurgitated back into the mouth and she did have some aspiration. The patient was intubated for airway support prior to finishing her EGD so the food could be removed and her achalasia could be treated. She was extubated on 01.21.25 and is currently on 2.5L NC and antibiotics. She had an MBSS and was advanced to puree foods with nectar liquids. Family to bring in dentures. Charges/Coding Visit Charges Inpatient E&M: 91237 Subs Hosp L3
[2025-01-23] VITALS (20 sets, daily range): BP systolic 98–147; BP diastolic 46–121; PULSE 93–143; RESP 14–43; TEMP 36.4–37.9; O2SAT 84–96; BMI 26.9
[2025-01-23] MEDS: Vancomycin 125 MG/5 ML Susp PO.SYRINGE GT ×2 (00:29→06:39)
[2025-01-23 04:47] LABS: Hematocrit 27.0 % (37-47); Hemoglobin 8.6 g/dL (12.0-15.0); Immature Granulocytes Count 0.060 X10^3/uL (0.0-0.0); Mean Corp Hgb Conc 31.9 g/dL (32-36); Mean Corpuscular Volume 97.8 fL (81-99); Mean Platelet Vol. 11.6 fl (6.2-12.0); NRBC Flagged by Analyzer 0 % (0-5); Platelet Count 187 K/mm3 (150-450); RBC Distribution Width CV 15.5 % (11.6-14.6); RBC Distribution Width SD 54.7 fl (35.1-43.9); Red Blood Count 2.76 M/mm3 (4.2-5.4); White Blood Count 8.1 K/mm3 (4.4-11.0)
[2025-01-23 05:25] LABS: Anion Gap 16 (5-15); BUN 20 mg/dL (4-19); BUN/Creat Ratio 14.9 RATIO (10-20); Calcium,Total 8.5 mg/dL (7.6-11.0); Carbon Dioxide 25.2 mmol/L (21.0-32.0); Chloride 105 mmol/L (98-108); Estimated Creatinine Clearance 26.81 ml/min (50-250); Glucose 115 mg/dL (70-99); Potassium 3.6 mmol/L (3.3-5.1)
--- NOTE | 2025-01-23 06:09 | PCM.HOSP.N ---
Hospitalist Note Saw patient at bedside this morning at request of nursing staff. Patient became more tachycardic and hypoxic over the past few hours. She was trialed on BiPAP but refused to wear it after short period of time. On my exam, patient is sitting back in bed, mentating appropriately and answering questions appropriately. She does have shallow breaths and is breathing 30-40 times per minute. Heart rate is in the 130s and sinus tachycardia and oxygen saturation is around 90% on 6 L nasal cannula. Breath sounds are good bilaterally in upper airways but diminished in bases. On chart review, patient is on p.o. Lasix 40 mg twice daily and Coreg 25 mg twice daily at home and these have not been restarted yet as she presented with septic shock. Will obtain chest x-ray and ABG now, and will give doses of IV Lasix 40 mg and IV Lopressor 5 mg now as well. Monitor response. Will defer to day team on consideration of resuming home medications.
--- NOTE | 2025-01-23 06:15 | RAD_ITS ---
PROCEDURE: CHEST 1 VIEW (PORTABLE) 01/23/2025 REASON FOR EXAM: WORSENING HYPOXIA TECHNIQUE: Frontal view of the chest. COMPARISON: 01/21/2025 FINDINGS: Progressed bilateral perihilar and lower lung zones volume overloaded changes versus infiltrates. Stable bilateral pleural effusion. Stable cardiac size and aortic calcifications. Stable osseous structures. Endotracheal tube is seen in satisfactory placement. Removed nasogastric tube. RAD/Chest 1 View (Portable) IMPRESSION: Progressed bilateral perihilar and lower lung zones volume overloaded changes v ersus infiltrates. Stable bilateral pleural effusion. [facility]
[2025-01-23 06:16] LABS: Base Excess 4 mmol/L (-2 to +2); FI02 6.0; PO2 56 mmHG (75-100); SITE R Radial; SO2 89 % (95-99)
[2025-01-23] MEDS: Heparin Injection (Vial) 5,000 UNIT/ML VIAL 5000 UNIT SC ×3 (06:39→22:07)
--- NOTE | 2025-01-23 06:45 | PCM.PN.INT ---
Assessment & Plan Assessment/Plan (1) Sepsis: PLAN: Plan RECOMMENDATIONS: 1. Supplemental oxygen to maintain saturations at or above 90%. 2. Recommend n.p.o. status given interval decompensation in respiratory status, following dietary advancement. 3. Check urine analysis, BNP, lactate procalcitonin. 4. Discontinue Ativan. Attempt to minimize sedating medications as feasible. 5. Continue bronchodilator therapy. 6. Continue appropriate DVT prophylaxis. 7. Encourage incentive spirometer use and mobilize patient as tolerated. 8. Remove [place] catheter. IMPRESSIONS: 1. Septic shock Resolved. Clinical concern for underlying urinary tract source of infection +/- aspiration pneumonia. The patient ultimately developed fluid refractory hypotension, which required vasopressor support. The patient has been since weaned from Levophed and remains hemodynamically stable. The patient has subsequently completed her antibiotic treatment course. 2. Acute hypoxemic respiratory failure The patient has a known history of achalasia and was taken for endoscopic evaluation on January 15, at which time, the patient decompensated from a respiratory perspective and was intubated. She was noted to have significant food in the esophagus, with concern for an acute aspiration event leading to her respiratory decompensation. With supportive care, including antimicrobials and invasive mechanical ventilatory support, the patient was able to be extubated on January 21. Supplemental oxygen will be weaned to maintain saturations at or above 90%. Speech therapy is following to assist with dietary advancement strategies. 3. Acute kidney injury Likely prerenal in etiology. Creatinine has stabilized at this time. Continue to monitor urine output. No current indication for renal replacement therapy. 4. History of achalasia The patient is status post endoscopic evaluation on January 15, during which time, the patient was noted to have a significant amount of food in the entire esophagus. A severe Schatzki ring was noted which was dilated. Botox was also injected. Continue current medical management per gastroenterology recommendations. 5. Recent left wrist fracture/recent C. difficile colitis on vancomycin/anemia/peripheral arterial disease/hypothyroidism Complicates care, management, recovery and prognosis. Continue supportive measures as noted above. PT/OT to work with the patient. This note was generated with [employer] software. It may contain incorrect words, spelling, and punctuation that were not noted in checking the note before signing. Subjective Subjective The patient was seen and examined at the bedside this morning. Events from the last 24 hours have been reviewed. The patient completed a modified barium swallow yesterday for which pur?ed textures and mildly thick liquids was recommended. Overnight, the patient apparently became more tachycardic and hypoxemic. She refused to utilize BiPAP therapy. Oxygen requirement increased to 6 L/min. Chest x-ray continues to demonstrate pulmonary vascular congestion with bilateral pleural effusions. Arterial blood gas was notable for a pH of 7.43 with a pCO2 of 42 and pO2 of 56. The patient did receive nutritional support by mouth last evening and also received p.o. medications. Her respiratory status is now worsened. Therefore, recommend that the patient be again made n.p.o. In addition, the patient did receive both oxycodone and Ativan overnight, likely leading to her confusion this morning. White blood cell count remains normal this morning. Hemoglobin and platelet count are stable. Chemistry profile was notable for a sodium of 146 with an anion gap of 16 and creatinine of 1.34. Objective Data Objective Data The patient's most recent lab work, culture data and imaging studies have all been personally reviewed. Surface echocardiogram demonstrated mild concentric LVH with stage I diastolic dysfunction. Urine culture was positive for Klebsiella pneumonia. Vital Signs: Vital Signs Temp Pulse Resp BP Pulse Ox O2 Del Method O2 Flow Rate 99.4 F H 143 H 43 H 147/66 H 90 Nasal Cannula 6 01/23/25 04:00 01/23/25 05:50 01/23/25 05:50 01/23/25 04:00 01/23/25 06:12 01/23/25 06:12 01/23/25 06:12 FiO2 65 01/23/25 04:57 Oxygen Flow Rate (L/min) 6 Oxygen Delivery Method Nasal Cannula Weight: 147 lb 7.828 oz Body Mass Index (BMI) 26.9 Intake & Output: Intake and Output for Last 24 Hours 01/21/25 01/22/25 01/23/25 23:59 23:59 23:59 Intake Total 1848.29 / 1848.29 400 / 400 Output Total 1800 / 1800 1900 / 2200 450 / 450 Balance 48.29 / 48.29 -1500 / -1800 -450 / -450 Lab / Micro Data Attestation: I reviewed the patient's lab results. 01/23/25 04:05 01/23/25 04:05 Labs: Laboratory Results - last 24 hr 01/23/25 04:05: WBC 8.1, RBC 2.76 L, Hgb 8.6 L, Hct 27.0 L, MCV 97.8, MCH 31.2, MCHC 31.9 L, RDW Std Deviation 54.7 H, RDW Coeff of Ha 15.5 H, Plt Count 187, MPV 11.6, Immature Gran % (Auto) 0.700, Neut % (Auto) 79.1 H, Lymph % (Auto) 10.8 L, [place] % (Auto) 6.6, Eos % (Auto) 2.3, Baso % (Auto) 0.5, Absolute Neuts (auto) 6.4, Absolute Lymphs (auto) 0.88, Nucleated RBC % 0, Sodium 146 H, Potassium 3.6, Chloride 105, Carbon Dioxide 25.2, Anion Gap 16 H, BUN 20 H, Creatinine 1.34 H, Estim Creat Clear Calc 26.81 L, Est GFR (MDRD) Non-Af 38 L, BUN/Creatinine Ratio 14.9, Glucose 115 H, Calcium 8.5 Micro: Microbiology 01/15/25 18:27 Blood Culture (Wb) - Anticubital Left Blood Culture - Final No growth in 5 days. 01/15/25 17:45 Blood Culture (Wb) - Pic Blood Culture - Final No growth in 5 days. 01/15/25 17:58 Sputum, Induced/Lukens Gram Stain - Final 01/15/25 17:58 Sputum, Induced/Lukens Respiratory Culture - Final Yeast, not Sera albicans 01/11/25 22:14 Blood Culture (Wb) - Arm Left Blood Culture - Final No growth in 5 days. 01/11/25 14:15 Urine, Clean Catch Urine Culture - Final Klebsiella pneumoniae sp pneum 01/11/25 22:04 Nasal Secretion MRSA (PCR) - Final 01/11/25 23:00 Mucosa - Nasopharyngeal SARS-CoV-2, Influenza & RSV (PCR) - Final 01/11/25 11:05 Stool Stool Occult Blood (ROYAL) - Final Occult Blood Positive ABG Data ABG results: ABG 01/23/25 06:11 Specimen Type ART Sample Site R Radial pH 7.43 Bicarbonate Actual 28.3 H Total CO2 30 Base Excess 4 H O2 Saturation 89 L O2 % 6.0 ABG pCO2 42.7 ABG pO2 56 L Mj Test N/A O2 Delivery Device Cannula Vent Mode Not entered Radiography Diagnostic Testing: Radiology Impression Chest X-Ray 01/21/25 05:30 IMPRESSION: Improved pulmonary venous congestion changes. Regressed bilateral perihilar and lower lung zones volume overloaded changes versus infiltrates. Decreased bilateral pleural effusion. Reading Location: [place] [address] Rhythm Strip Rhythm Strip: Sinus Rhythm Rate: 90 Ectopy: None Physical Exam Const Constitutional Narrative: The patient is much more confused and disoriented this morning. She is restless in bed. HEENT normocephalic and moist oral mucous membranes HEENT Narrative: Facial ecchymoses noted Eyes EOMs intact bilaterally, conjunctivae normal and no scleral icterus Neck supple General: trachea midline Chest inspection of chest normal Resp no use of accessory muscles Effort and Inspection: tachypneic Auscultation: wheezes and diminished lung sounds; Negative for rales or rhonchi Cardio S1 normal heart sound and S2 normal heart sound Rate: tachycardic GI normal to inspection, nondistended, normoactive bowel sounds Extremity Extremity Narrative: Scattered ecchymoses on extremities General Extremity: edema; Negative for clubbing Neuro CN's II-XII intact bilaterally, moves all extremities and no focal motor deficits Psych Activity / Motor Behavior: restless Charges/Coding Visit Charges Inpatient E&M: 99838 Subs Hosp L3
[2025-01-23] MEDS: Budesonide Respules 0.5 MG/2 ML AMPUL.NEB. INHALATION ×2 (07:18→18:55)
[2025-01-23 08:50] LABS: Pro- Brain NATRIURETIC PEPTIDE 23532 pg/mL (<=1800); Procalcitonin 0.66 ng/mL (<=0.10)
[2025-01-23] MEDS: Pantoprazole Sodium 40 MG in 0.9% Normal Saline (100mL MB+) 100 ML 330 MG IV (09:54)
[2025-01-23 11:09] LABS: Mucous, Urine 0 SEEN /hpf (<or=2+); Squamous Epithelial Cells - UA 0 SEEN /hpf (5-10)
--- NOTE | 2025-01-23 11:09 | CASEMGMT ---
Per ICU rounds, pt is not medically ready for DC yet. Ana ([facility] student admissions clerk) updated to place the referral on hold for now. Care Management to follow.
[2025-01-23 11:40] LABS: Color, Urine Yellow (Yellow); Glucose, Dipstick Normal (Normal); Ketone-Dipstick 5 mg/dl (Negative); Leukocyte Esterase-Dipstick 500 /ul (Negative); Nitrite-Dipstick Negative (Negative); Occult Blood-Urine 150 /ul (Negative); Protein-Dipstick 100 mg/dl (Negative); Specific Gravity, Urine 1.025 (1.002-1.030); Urine Bilirubin Dipstick Negative (Negative)
[2025-01-23 12:00] LABS: Red Blood Cells-Urine 5-10 SEEN /hpf (0-5)
[2025-01-23 12:01] LABS: Transitional Epithelial - Ur 0-5 SEEN /hpf (0-5)
[2025-01-23 12:02] LABS: Fine Granular Cast- Urine 0-5 SEEN /lpf (0-5); Yeast-Urine 3+ /hpf (None Seen)
--- NOTE | 2025-01-23 17:57 | PN.HOSP_ITS ---
Reason for Visit Reason for Visit: Diagnoses Sepsis, unspecified organism (01/11/25) Pneumonia, unspecified organism (01/11/25) Achalasia of cardia (01/11/25) Gastrointestinal hemorrhage, unspecified (01/11/25) Fracture of unspecified carpal bone, left wrist, subsequent encounter for fracture with routine healing (01/11/25) Subjective Subjective Patient was seen and examined today, she was made n.p.o. by speech therapy due to concerns for aspiration. Objective Data Objective Data Vital Signs: Vital Signs Temp Pulse Resp BP Pulse Ox O2 Del Method O2 Flow Rate 99.8 F H 102 H 26 H 131/67 H 95 Nasal Cannula 6 01/23/25 08:33 01/23/25 15:43 01/23/25 15:43 01/23/25 11:46 01/23/25 12:44 01/23/25 11:46 01/23/25 12:44 FiO2 65 01/23/25 04:57 Oxygen Flow Rate (L/min) 6 Oxygen Delivery Method Nasal Cannula Weight: 66.9 kg Body Mass Index (BMI) 26.9 Intake & Output: Intake and Output for Last 24 Hours 01/21/25 01/22/25 01/23/25 23:59 23:59 23:59 Intake Total 1848.29 / 1848.29 400 / 400 100 / 100 Output Total 1800 / 1800 1900 / 2200 650 / 650 Balance 48.29 / 48.29 -1500 / -1800 -550 / -550 Lab / Micro Data 01/23/25 04:05 01/23/25 04:05 Labs: Laboratory Results - last 24 hr 01/23/25 04:05: WBC 8.1, RBC 2.76 L, Hgb 8.6 L, Hct 27.0 L, MCV 97.8, MCH 31.2, MCHC 31.9 L, RDW Std Deviation 54.7 H, RDW Coeff of Ha 15.5 H, Plt Count 187, MPV 11.6, Immature Gran % (Auto) 0.700, Neut % (Auto) 79.1 H, Lymph % (Auto) 10.8 L, [place] % (Auto) 6.6, Eos % (Auto) 2.3, Baso % (Auto) 0.5, Absolute Neuts (auto) 6.4, Absolute Lymphs (auto) 0.88, Nucleated RBC % 0, Sodium 146 H, Potassium 3.6, Chloride 105, Carbon Dioxide 25.2, Anion Gap 16 H, BUN 20 H, C reatinine 1.34 H, Estim Creat Clear Calc 26.81 L, Est GFR (MDRD) Non-Af 38 L, BUN/Creatinine Ratio 14.9, Glucose 115 H, Calcium 8.5, [place] [address] H, P rocalcitonin 0.66 H 01/23/25 07:55: Lactic Acid 1.3 01/23/25 10:55: Urine Color Yellow, Urine Clarity Cloudy, Urine pH 6.0, Ur Specific [place] 1.025, Urine Protein 100 H, Urine Glucose (UA) Normal, Urine Ketones 5 H, Urine Occult Blood 150 H, Urine Nitrite Negative, Urine Bilirubin Negative, Urine Urobilinogen Normal, Ur Leukocyte Esterase 500 H, Urine RBC 5-10 SEEN, Urine WBC >100 SEEN, Ur Squamous Epith Cells 0 SEEN, Ur Transition Epith Cell 0-5 SEEN, Urine Bacteria 0 SEEN, Hyaline Casts 0-5 SEEN, Fine Granular Casts 0-5 SEEN, Coarse Granular Casts 5-10 SEEN, Urine Mucus 0 SEEN, Urine Yeast 3+ Micro: Microbiology 01/15/25 18:27 Blood Culture (Wb) - Anticubital Left Blood Culture - Final No growth in 5 days. 01/15/25 17:45 Blood Culture (Wb) - Pic Blood Culture - Final No growth in 5 days. 01/15/25 17:58 Sputum, Induced/Lukens Gram Stain - Final 01/15/25 17:58 Sputum, Induced/Lukens Respiratory Culture - Final Yeast, not Sera albicans 01/11/25 22:14 Blood Culture (Wb) - Arm Left Blood Culture - Final No growth in 5 days. 01/11/25 14:15 Urine, Clean Catch Urine Culture - Final Klebsiella pneumoniae sp pneum 01/11/25 22:04 Nasal Secretion MRSA (PCR) - Final 01/11/25 23:00 Mucosa - Nasopharyngeal SARS-CoV-2, Influenza & RSV (PCR) - Final 01/11/25 11:05 Stool Stool Occult Blood (ROYAL) - Final Occult Blood Positive ABG Data ABG results: ABG 01/23/25 06:11 Specimen Type ART Sample Site R Radial pH 7.43 Bicarbonate Actual 28.3 H Total CO2 30 Base Excess 4 H O2 Saturation 89 L O2 % 6.0 ABG pCO2 42.7 ABG pO2 56 L Mj Test N/A O2 Delivery Device Cannula Vent Mode Not entered Radiography Diagnostic Testing: Radiology Impression Chest X-Ray 01/23/25 06:15 IMPRESSION: Progressed bilateral perihilar and lower lung zones volume overloaded changes versus infiltrates. Stable bilateral pleural effusion. Reading Location: [place] [id number] Rhythm Strip Rhythm Strip: Sinus Rhythm Rate: 90 Ectopy: None Physical Exam Narrative alert, oriented x3 and no apparent distress General Appearance: cooperative, well kempt and well developed Orientation / Consciousness: awake, oriented to person, oriented to place and oriented to time HEENT normocephalic, head/scalp atraumatic and moist oral mucous membranes Eyes PERRL, EOMs intact bilaterally and conjunctivae normal Neck supple, no JVD, thyroid normal and no carotid bruits General: trachea midline Resp normal respiratory effort, no retractions and no use of accessory muscles Resp Narrative: Patient has expiratory rhonchi bilaterally Auscultation: Negative for rales, rhonchi or wheezes Cardio regular rate, regular rhythm, S1 normal heart sound, S2 normal heart sound, no murmurs, no rub and no gallops GI normal to inspection, nondistended, normoactive bowel sounds, soft to palpation, non-tender and non-distended Extremity Extremity Narrative: Patient has a cast over her left forearm and wrist Skin no rashes or lesions noted General Skin Exam: no breakdown Neuro oriented x3, CN's II-XII intact bilaterally, moves all extremities, no focal motor deficits and no sensory deficits noted Sensorium / Orientation: awake and alert Speech: speech normal Psych affect normal Assessment & Plan Assessment/Plan (1) Pneumonia: PLAN: Plan 1. Septic shock-secondary to acute cystitis and pneumonia, patient has completed her course of IV antibiotics #2 achalasia-patient underwent esophageal dilatation and Botox injection, she is currently n.p.o. due to concerns of aspiration, speech therapy will continue to work with her #3 acute hypoxic respiratory failure- she is currently on nasal cannula oxygen #4 esophagitis-patient remains on PPI #5 hyperlipidemia-patient is on Lipitor-currently she is n.p.o. #6 C. difficile colitis-patient remains on p.o. vancomycin-currently she is n.p.o. #7 generalized debility-patient will need placement at least temporarily in a group home facility for rehab services Total clinical time spent by myself addressing the patient's medical issues, reviewing all of her data, and collaborating with patient's care team: 35 minutes Charges/Coding Visit Charges Inpatient E&M: 26174 Subs Hosp L2
--- NOTE | 2025-01-23 18:12 | PN_ITS ---
Progress Note Patient has been evaluated by speech therapy. Assessment & Plan Assessment/Plan (1) ABLA (acute blood loss anemia): (2) UGIB (upper gastrointestinal bleed): (3) Achalasia: (4) Sepsis: PLAN: Plan Patient is an 89-year-old lady who presented following a fall. Patient was found to be hypotensive on admission. Subsequently diagnosed with septic shock secondary to combination of pneumonia and acute cystitis. She developed worsening esophageal dysphagia. She underwent evaluation was discovered to have severe food impaction secondary to achalasia. The food was removed and Botox was ingested into the lower esophageal sphincter. However during the initial intubation of the esophagus she had a a lot of food that was regurgitated back into the mouth and she did have some aspiration. The patient was intubated for airway support prior to finishing her EGD so the food could be removed and her achalasia could be treated. She is currently extubated and doing well off of pressor therapy still antibiotics. Recommend barium esophagram prior to advancing diet as tolerated. 01/23/2025- Moderate oropharyngeal dysphagia and esophageal dysphagia The esophageal phase is marked by... -Esophagus appears tortuous. -Retention of pudding in the lower esophagus w/ retrograde flow to the middle esophagus. -Retention of cookie in the lower esophagus. The patient may require supplemental feeding with a percutaneous feeding tube. As an outpatient patient should be evaluated for either a POEM'S procedure or Heller myotomy with Hazel fundoplication. Patient is on modified diet. Caution with any medications or oral feeding. Visit Charges Inpatient E&M: 82605 [facility] L3
[2025-01-23] MEDS: Pantoprazole Sodium 40 MG in 0.9% Normal Saline (100mL MB+) 100 ML 300 MG IV (22:07)
[2025-01-24] VITALS (30 sets, daily range): BP systolic 85–142; BP diastolic 35–79; PULSE 66–175; RESP 12–44; TEMP 2.2–36.8; O2SAT 88–99; BMI 26.6
[2025-01-24] MEDS: Heparin Injection (Vial) 5,000 UNIT/ML VIAL 5000 UNIT SC ×2 (05:08→23:25)
--- NOTE | 2025-01-24 06:52 | PCM.PN.INT ---
Assessment & Plan Assessment/Plan (1) Sepsis: PLAN: Plan RECOMMENDATIONS: 1. Supplemental oxygen to maintain saturations at or above 90%. 2. Continue n.p.o. status, pending reevaluation by speech therapy. Low threshold to proceed with PEG tube placement. 3. Administer IV Lasix x 1 today. 4. Continue bronchodilator therapy. 5. Continue appropriate DVT prophylaxis. 6. Encourage incentive spirometer use and mobilize patient as tolerated. IMPRESSIONS: 1. Septic shock Resolved. Clinical concern for underlying urinary tract source of infection +/- aspiration pneumonia. The patient ultimately developed fluid refractory hypotension, which required vasopressor support. The patient has been since weaned from Levophed and remains hemodynamically stable. The patient has subsequently completed her antibiotic treatment course. 2. Acute hypoxemic respiratory failure The patient has a known history of achalasia and was taken for endoscopic evaluation on January 15, at which time, the patient decompensated from a respiratory perspective and was intubated. She was noted to have significant food in the esophagus, with concern for an acute aspiration event leading to her respiratory decompensation. With supportive care, including antimicrobials and invasive mechanical ventilatory support, the patient was able to be extubated on January 21. Supplemental oxygen will be weaned to maintain saturations at or above 90%. Speech therapy is following to assist with dietary advancement strategies. However, given ongoing concerns for aspiration, I would have a low threshold to proceed with PEG tube placement for nutritional support. 3. Acute kidney injury Resolved. Likely prerenal in etiology. Creatinine has stabilized at this time. Continue to monitor urine output. No current indication for renal replacement therapy. 4. History of achalasia The patient is status post endoscopic evaluation on January 15, during which time, the patient was noted to have a significant amount of food in the entire esophagus. A severe Schatzki ring was noted which was dilated. Botox was also injected. Continue current medical management per gastroenterology recommendations. 5. Recent left wrist fracture/recent C. difficile colitis on vancomycin/anemia/peripheral arterial disease/hypothyroidism Complicates care, management, recovery and prognosis. Continue supportive measures as noted above. PT/OT to work with the patient. This note was generated with [employer] software. It may contain incorrect words, spelling, and punctuation that were not noted in checking the note before signing. Subjective Subjective The patient was seen and examined at the bedside this morning. Events from the last 24 hours have been reviewed. The patient is currently afebrile, hemodynamically stable and maintaining appropriate oxygen saturations on 4 L/min via nasal cannula. The patient is documented to be overall net +5.7 L for the hospitalization. White blood cell count remains normal. Hemoglobin and platelet count are stable. Sodium remains elevated at 148 with a creatinine of 1.2. The patient remains n.p.o., pending reevaluation by speech therapy. Objective Data Objective Data The patient's most recent lab work, culture data and imaging studies have all been personally reviewed. Surface echocardiogram demonstrated mild concentric LVH with stage I diastolic dysfunction. Urine culture was positive for Klebsiella pneumonia. Vital Signs: Vital Signs Temp Pulse Resp BP Pulse Ox O2 Del Method O2 Flow Rate 97.4 F L 104 H 30 H 132/60 H 96 Nasal Cannula 4 01/24/25 05:00 01/24/25 05:00 01/24/25 05:00 01/24/25 05:00 01/24/25 05:00 01/24/25 05:00 01/24/25 05:00 FiO2 35 01/24/25 01:15 Oxygen Flow Rate (L/min) 4 Oxygen Delivery Method Nasal Cannula Weight: 145 lb 15.136 oz Body Mass Index (BMI) 26.6 Intake & Output: Intake and Output for Last 24 Hours 01/22/25 01/23/25 01/24/25 23:59 23:59 23:59 Intake Total 400 / 400 200 / 200 Output Total 1900 / 2200 650 / 650 200 / 200 Balance -1500 / -1800 -450 / -450 -200 / -200 Lab / Micro Data Attestation: I reviewed the patient's lab results. 01/24/25 07:50 01/24/25 07:50 Labs: Laboratory Results - last 24 hr 01/23/25 04:05: [place] [address] H, Procalcitonin 0.66 H 01/23/25 07:55: Lactic Acid 1.3 01/23/25 10:55: Urine Color Yellow, Urine Clarity Cloudy, Urine pH 6.0, Ur Specific [place] 1.025, Urine Protein 100 H, Urine Glucose (UA) Normal, Urine Ketones 5 H, Urine Occult Blood 150 H, Urine Nitrite Negative, Urine Bilirubin Negative, Urine Urobilinogen Normal, Ur Leukocyte Esterase 500 H, Urine RBC 5-10 SEEN, Urine WBC >100 SEEN, Ur Squamous Epith Cells 0 SEEN, Ur Transition Epith Cell 0-5 SEEN, Urine Bacteria 0 SEEN, Hyaline Casts 0-5 SEEN, Fine Granular Casts 0-5 SEEN, Coarse Granular Casts 5-10 SEEN, Urine Mucus 0 SEEN, Urine Yeast 3+ Micro: Microbiology 01/15/25 18:27 Blood Culture (Wb) - Anticubital Left Blood Culture - Final No growth in 5 days. 01/15/25 17:45 Blood Culture (Wb) - Pic Blood Culture - Final No growth in 5 days. 01/15/25 17:58 Sputum, Induced/Lukens Gram Stain - Final 01/15/25 17:58 Sputum, Induced/Lukens Respiratory Culture - Final Yeast, not Sera albicans 01/11/25 22:14 Blood Culture (Wb) - Arm Left Blood Culture - Final No growth in 5 days. 01/11/25 14:15 Urine, Clean Catch Urine Culture - Final Klebsiella pneumoniae sp pneum 01/11/25 22:04 Nasal Secretion MRSA (PCR) - Final 01/11/25 23:00 Mucosa - Nasopharyngeal SARS-CoV-2, Influenza & RSV (PCR) - Final 01/11/25 11:05 Stool Stool Occult Blood (ROYAL) - Final Occult Blood Positive ABG Data ABG results: ABG 01/23/25 06:11 Specimen Type ART Sample Site R Radial pH 7.43 Bicarbonate Actual 28.3 H Total CO2 30 Base Excess 4 H O2 Saturation 89 L O2 % 6.0 ABG pCO2 42.7 ABG pO2 56 L Mj Test N/A O2 Delivery Device Cannula Vent Mode Not entered Radiography Diagnostic Testing: Radiology Impression Chest X-Ray 01/21/25 05:30 IMPRESSION: Improved pulmonary venous congestion changes. Regressed bilateral perihilar and lower lung zones volume overloaded changes versus infiltrates. Decreased bilateral pleural effusion. Reading [facility] Rhythm Strip Rhythm Strip: Sinus Rhythm Rate: 90 Ectopy: None Physical Exam Const Constitutional Narrative: The patient is much more alert and less confused than yesterday. HEENT normocephalic and moist oral mucous membranes HEENT Narrative: Facial ecchymoses noted Eyes EOMs intact bilaterally, conjunctivae normal and no scleral icterus Neck supple General: trachea midline Chest inspection of chest normal Resp no use of accessory muscles Effort and Inspection: tachypneic Auscultation: diminished lung sounds; Negative for rales, rhonchi or wheezes Cardio regular rate, regular rhythm, S1 normal heart sound and S2 normal heart sound GI normal to inspection, nondistended, normoactive bowel sounds Extremity Extremity Narrative: Scattered ecchymoses on extremities General Extremity: edema; Negative for clubbing Neuro CN's II-XII intact bilaterally, moves all extremities and no focal motor deficits Psych Mood & Affect: flat affect Charges/Coding Visit Charges Inpatient E&M: 05020 Subs Hosp L2
[2025-01-24] MEDS: Budesonide Respules 0.5 MG/2 ML AMPUL.NEB. INHALATION (06:58)
[2025-01-24 08:00] LABS: Hematocrit 27.7 % (37-47); Hemoglobin 8.5 g/dL (12.0-15.0); Immature Granulocytes Count 0.020 X10^3/uL (0.0-0.0); Mean Corp Hgb Conc 30.7 g/dL (32-36); Mean Corpuscular Volume 100.0 fL (81-99); Mean Platelet Vol. 11.4 fl (6.2-12.0); NRBC Flagged by Analyzer 0 % (0-5); Platelet Count 199 K/mm3 (150-450); RBC Distribution Width CV 15.5 % (11.6-14.6); RBC Distribution Width SD 55.9 fl (35.1-43.9); Red Blood Count 2.77 M/mm3 (4.2-5.4); White Blood Count 5.7 K/mm3 (4.4-11.0)
[2025-01-24 08:27] LABS: AST(SGOT) 43 U/L (<=31); Alanine Aminotransfer ALT/SGPT 26 U/L (<=34); Albumin, Serum 3.1 g/dL (3.4-4.8); Alkaline Phosphatase 123 U/L (35-104); Anion Gap 16 (5-15); BUN 19 mg/dL (4-19); BUN/Creat Ratio 15.4 RATIO (10-20); Calcium,Total 8.5 mg/dL (7.6-11.0); Carbon Dioxide 23.6 mmol/L (21.0-32.0); Chloride 108 mmol/L (98-108); Estimated Creatinine Clearance 29.48 ml/min (50-250); Globulin 3.0 g/dL (2.2-4.2); Glucose 95 mg/dL (70-99); Magnesium 2.1 mg/dL (1.5-2.2); Potassium 3.6 mmol/L (3.3-5.1)
--- NOTE | 2025-01-24 09:29 | CASEMGMT ---
Per ICU rounds, plan is likely for PEG placement. Gretta @ [facility] notified that the pt is not medically ready yet. CM to follow.
[2025-01-24] MEDS: Pantoprazole Sodium 40 MG in 0.9% Normal Saline (100mL MB+) 100 ML 330 MG IV (10:18)
[2025-01-24] MEDS: 0.9% Saline Lock 10 ML Syringe IV (10:19)
--- NOTE | 2025-01-24 13:45 | NURSING ---
Pt transported to endo for PEG placement via cryptological technician. Pt's daughter here at time of transport so she was taken as well.
--- NOTE | 2025-01-24 13:57 | PN_ITS ---
Progress Note I was called by hospitalist service. Patient was noted to be aspirating secondary to achalasia. She has agreed to undergo percutaneous endoscopic g astrostomy tube placement. Physical Exam Const alert, oriented x3, no apparent distress and healthy appearing General Appearance: cooperative GI normal to inspection, nondistended, normoactive bowel sounds, soft to palpation, non-tender and non-distended Percussion: normal to percussion Rectal Exam: deferred Assessment & Plan Assessment/Plan (1) ABLA (acute blood loss anemia): (2) UGIB (upper gastrointestinal bleed): (3) Achalasia: (4) Sepsis: PLAN: Plan Patient is an 89-year-old lady who presented following a fall. Patient was found to be hypotensive on admission. Subsequently diagnosed with septic shock secondary to combination of pneumonia and acute cystitis. She developed worsening esophageal dysphagia. She underwent evaluation was discovered to have severe food impaction secondary to achalasia. The food was removed and Botox was ingested into the lower esophageal sphincter. However during the initial intubation of the esophagus she had a a lot of food that was regurgitated back into the mouth and she did have some aspiration. The patient was intubated for airway support prior to finishing her EGD so the food could be removed and her achalasia could be treated. She is currently extubated and doing well off of pressor therapy still antibiotics. Recommend barium esophagram prior to advancing diet as tolerated. 01/23/2025- Moderate oropharyngeal dysphagia and esophageal dysphagia The esophageal phase is marked by... -Esophagus appears tortuous. -Retention of pudding in the lower esophagus w/ retrograde flow to the middle esophagus. -Retention of cookie in the lower esophagus. The patient may require supplemental feeding with a percutaneous feeding tube. As an outpatient patient should be evaluated for either a POEM'S procedure or Heller myotomy with Hazel fundoplication. Patient is on modified diet. Caution with any medications or oral feeding. 01/24/2025-patient will undergo percutaneous endoscopic gastrostomy tube placement. She and the family were explained alternatives, risk and benefits include not withstanding bleeding, infection, sepsis, perforation, need for surgery . She will have an ASA of 3. Visit Charges Inpatient E&M: [id number] [facility] L[facility]
[2025-01-24] MEDS: Lactated Ringers 1,000 ML 15 ML IV (14:15)
--- NOTE | 2025-01-24 14:21 | PRE.ANES_ITS ---
ASA Classification* ASA Classification ASA Classification: 4 Assessment & Plan Anesthesia* Anesthesia Assessment Anesthesia Assessment: Discussed sedation and/or anesthesia options, risks, benefits, and alternatives with patient/parents/legal guardian/POA. Questions invited. The patient/parents/legal guardian/POA seems to understand and agrees to proceed with anesthesia plan. Reviewed the physical assessment, medical history, allergy history and patient home medications list prior to surgery/procedure/anesthetic and documented any changes. Performed airway and anesthesia risk assessments. Anesthesia Type Anesthesia Type: MAC History Source History Obtained from:: Patient and Chart Anesthesia Focused Assessment* Temperature: 97.5 F Pulse Rate: 116 Blood Pressure: 142/71 Respiratory Rate: 28 Pulse Ox: 93 Oxygen Delivery Method: Nasal Cannula Oxygen Flow Rate (L/min): 4 Fraction of Inspired Oxygen (FIO2): 40 Airway Assessment Mouth opens: >3 cm Mallampati Score: II Teeth Condition: Dentures and Full (Upper and lower) Neck Range of motion (ROM): Limited ROM Comment: Limited neck extension Labs Anesthesia Preop lab: CBC WBC 5.7 K/mm3 (4.4-11.0) 01/24/25 07:50 01/24/25 RBC 2.77 M/mm3 (4.2-5.4) L 01/24/25 07:50 01/24/25 Hgb 8.5 g/dL (12.0-15.0) L 01/24/25 07:50 01/24/25 Hct 27.7 % (37-47) L 01/24/25 07:50 01/24/25 Plt Count 199 K/mm3 (150-450) 01/24/25 07:50 01/24/25 CHEMISTRY Potassium 3.6 mmol/L (3.3-5.1) 01/24/25 07:50 01/24/25 Sodium 148 mmol/L (133-145) H 01/24/25 07:50 01/24/25 Magnesium 2.1 mg/dL (1.5-2.2) 01/24/25 07:50 01/24/25 Phosphorus 3.4 mg/dL (2.7-4.5) 01/24/25 07:50 01/24/25 BUN 19 mg/dL (4-19) 01/24/25 07:50 01/24/25 Creatinine 1.20 mg/dL (0.70-1.20) 01/24/25 07:50 01/24/25 Glucose 95 mg/dL (70-99) 01/24/25 07:50 01/24/25 POC Glucose 82 mg/dL (74-106) 01/11/25 16:15 01/11/25 TSH 1.820 uIU/mL (0.358-3.740) 06/06/24 18:39 05/19 COAG PT 13.0 SECONDS (11.7-14.9) 12/17/24 04:56 Pre-Assessment Diagnosis/Proposed Procedure Planned Operative Procedure(s): EGD with Peg Anesthesia History 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 When Was Last Pacemaker Check QUESTION #4 FULL TEXT: You/Your Family Experience fever (hyperthermia) with Anesthesia Last Oral Intake Last Oral intake: Last Oral Intake NPO since 08:30 01/11/25 16:29 Meds taken in AM with sips of No 01/11/25 16:29 water? Meds patient instructed to take am of surgery PONV PONV - vault custodian: PONV - vault custodian Female HX of Motion Sickness HX of N/V After Surgery Non-Smoker Duration of Surgery greater than 60 minutes Number of Risk Factors PONV Score Height & Weight Height & Weight: Anesthesia: Height & Weight Height 5 ft 2 in 01/24/25 09:34 Weight: 66.2 kg 01/24/25 09:34 Body Mass Index (BMI) 26.6 01/24/25 04:04 Respiratory Assessment Respiratory Assessment - vault custodian: Respiratory Tract Infection Hx - vault custodian Hx Respiratory Tract Infection No 12/27/24 15:28 STOP Sleep Apnea STOP Sleep Apnea - vault custodian: STOP Sleep Apnea - vault custodian Hx Hypertension Yes 01/13/25 14:23 Hx Sleep Apnea No 01/11/25 16:10 CPAP No 01/11/25 16:10 BIPAP No 01/11/25 16:10 Do you snore loudly (louder No 01/11/25 16:10 than talking or can be heard Do you often feel tired/ No 01/11/25 16:10 fatigued/ sleepy during daytime? Has anyone observed you stop No 01/11/25 16:10 breathing during sleep? STOP Results Negative 01/11/25 16:10 QUESTION #5 FULL TEXT : Do you snore loudly (louder than talking or can be heard through closed doors)? Tobacco Use History Tobacco Use History - vault custodian: Tobacco Use History - vault custodian Tobacco Use Smoking Status Former smoker 01/11/25 16:10 Hx Tobacco Use No 01/11/25 16:10 Years Smoking Packs Smoked per Day Smoking Cessation Date was Yes - quit smoking within 15 01/11/25 16:10 within the last 15 years years Hx Smoking Cessation Date 07/18/14 01/11/25 16:10 Hx Smoking Cessation No 01/11/25 16:10 Counseling Hematologic Medial History Hematologic Hx - vault custodian: Hematologic Medical Hx - supervisor wound Hx of Blood Transfusion Yes 01/11/25 16:10 Hx of Transfusion in last 3 No 01/11/25 16:10 Months Date of Last Transfusion (if within last 3 months) Ever experience any problems No 01/11/25 16:10 with transfusion(s)? Specify any problems Hx of Preganancy in last 3 N/A 01/11/25 16:10 Months Nurse Filling Out Transfusion [id number] 01/11/25 16:10 & Questions: Date: 01/11/25 01/11/25 16:10 Time: 18:02 01/11/25 16:10 Patient unable to answer at this time (ie. confused, unrespo /Reproduction History /Reproductive History - vault custodian: /Reproductive Hx- vault custodian Hx Now Gestational Age (in weeks): EDC: Hx Hx Para Hx Section SAB No 12/27/24 15:28 Active Medications Active Medications: Current Medications Generic Name Dose Route Start Last Admin Trade Name Freq PRN Reason Stop Dose Admin Acetaminophen 1,000 mg 01/22/25 09:07 01/22/25 11:20 Acetaminophen 500 Mg Tablet PO 1,000 mg Q8H PRN PRN Administration Pain 1-10 or Fever Albuterol Sulfate 2.5 mg 01/15/25 16:23 01/21/25 16:31 Albuterol 2.5 Mg/3 Ml Vial.Neb. INHALATION 2.5 mg Q2H PRN PRN Administration DYSPNEA/WHEEZING/SOB Albuterol/Ipratropium 3 ml 01/11/25 21:45 01/24/25 11:28 Ipratropium/Albuterol Sulfate 3 Ml Ampul.Neb INHALATION 3 ml Q4H.RT MUSA Administration Atorvastatin Calcium 40 mg 01/22/25 22:00 01/23/25 22:08 Atorvastatin Calcium 40 Mg Tablet PO Not Given QHS MUSA Budesonide 0.5 mg 01/14/25 12:45 01/24/25 06:58 Budesonide Respules 0.5 Mg/2 Ml Ampul.Neb. INHALATION 0.5 mg BID.RT MUSA Administration Cholecalciferol 125 mcg 01/22/25 10:00 01/24/25 09:37 Cholecalciferol (Vit D3) 125 Mcg Capsule (5,000 Units) PO Not Given DAILY MUSA Clopidogrel Bisulfate 75 mg 01/22/25 10:00 01/24/25 09:37 Clopidogrel Bisulfate 75 Mg Tablet PO Not Given DAILY MUSA Heparin Sodium (Porcine) 5,000 unit 01/16/25 14:00 01/24/25 14:17 Heparin Injection (Vial) 5,000 Unit/Ml Vial SC Not Given Q8 MUSA Pantoprazole Sodium 40 mg/ 100 mls @ 300 mls/hr 01/15/25 22:00 01/24/25 10:40 Sodium Chloride IV Infused Q12 MUSA Infusion Lactated Ringer's 1,000 mls @ 15 mls/hr 01/24/25 14:15 01/24/25 14:15 IV 15 mls/hr .Q48H MUSA Administration Metoprolol Tartrate 5 mg 01/24/25 13:00 01/24/25 13:39 Metoprolol Tartrate 5 Mg/5 Ml Vial IV 5 mg Q6 PRN Administration HR>100 Protocol Midodrine 10 mg 01/22/25 12:00 01/24/25 12:31 Midodrine Hcl 5 Mg Tablet PO Not Given TIDCM [facility] Morphine Sulfate 4 mg 01/23/25 17:44 01/24/25 02:29 Morphine 4 Mg/Ml Syringe IV 4 mg Q3H PRN PRN Administration Pain Score 1-10 Ondansetron HCl 4 mg 01/11/25 16:03 Ondansetron 4 Mg/2 Ml Vial IV Q8H PRN PRN NAUSEA/VOMITING Oxycodone HCl 5 - 10 mg 01/21/25 13:47 01/23/25 06:39 Oxycodone 5 Mg Tablet PO 10 mg Q6H PRN PRN Administration Pain Score 1-10 Pramipexole Dihydrochloride 1.5 mg 01/22/25 22:00 01/23/25 22:08 Pramipexole Di-Hcl 0.5 Mg Tablet PO Not Given QHS [facility] Sodium Chloride 10 - 40 ml 01/11/25 16:11 01/24/25 10:19 0.9% Saline Lock 10 Ml Syringe IV 40 ml UD PRN Administration SALINE FLUSH Sodium Chloride 250 ml 01/19/25 15:07 01/19/25 17:34 0.9% Normal Saline 250 Ml Iv.Soln. IV 250 ml PRN PRN Administration IV flush Vancomycin HCl 125 mg 01/16/25 00:00 01/24/25 12:33 Vancomycin 125 Mg/5 Ml Susp Po.Syringe GT Not Given Q6 [facility] Medical History GI (gastrointestinal bleed) Rash Back pain Cancer Thyroid disease Ambulates with cane History of renal disease TIA (transient ischemic attack) Acute diverticulitis Wears glasses Wears dentures Arthritis Low iron Anemia High cholesterol Migraine headache Restless legs Difficulty chewing History of diverticulitis Heartburn Gastric reflux Former smoker On home oxygen therapy Shortness of breath on exertion Chronic cough History of edema History of echocardiogram History of stress test Cardiology follow-up encounter Hypertension Chronic hypoxic respiratory failure History of diabetes mellitus History of hypertension Diverticulitis History of chronic heart failure History of COPD COPD (chronic obstructive pulmonary disease) Anemia Chronic heart failure with preserved ejection fraction (HFpEF) Hyperlipidemia Right lumbar radiculopathy CKD (chronic kidney disease), stage III Hypertension Chronic kidney disease PAD (peripheral artery disease) Renal cyst History of TIA (transient ischemic attack) Bilateral carotid artery stenosis Claudication RLS (restless legs syndrome) Diverticulosis TIA (transient ischemic attack) Vertigo Leg edema Dyslipidemia Home Medications ?Medication ?Instructions ?Recorded ?Last Taken ?Type atorvastatin 40 mg tablet 40 mg PO QHS cholesterol 01/3011/27/24 History clopidogrel 75 mg tablet 75 mg PO DAILY BLOOD THINNER 02/22/16 12/26/24 History albuterol sulfate 90 mcg/actuation 2 puff inhalation Q 4H PRN 03/16/18 09/27/24 History aerosol inhaler shortness of breath or wheez ing pramipexole 1.5 mg tablet 1.5 mg PO QHS restless leg s yndrome 08/18/23 01/10/25 History polysaccharide iron complex 150 mg 150 mg PO DAILY sup plement 30 days 10/12/23 12/26/24 Rx iron capsule (Ferrex) #30 caps acetaminophen 500 mg tablet 1,000 mg PO Q6H PRN pain 0 02/14/24 01/10/25 History arformoterol 15 mcg/2 mL solution 15 mcg inhalation BI D breathing 02/14/24 01/01/25 History for nebulization spironolactone 25 mg tablet 25 mg PO DAILY diuretic 11/28/24 History cholecalciferol (vitamin D3) 125 125 mcg PO DAILY 30 d ays #30 caps 06/08/24 11/28/24 Rx mcg (5,000 unit) capsule furosemide 40 mg tablet 40 mg PO BID FLUID RETENTION 09/24/24 11/28/24 History pantoprazole 40 mg tablet,delayed 40 mg PO BID reflux 09/24/24 01/01/25 History release budesonide 0.5 mg/2 mL suspension 0.5 mg inhalation BI D breathing 11/28/24 01/10/25 History for nebulization carvedilol 25 mg tablet 25 mg PO BID 11/28/24 History magnesium oxide 400 mg PO DAILY 11/28/24 History potassium chloride 20 mEq/15 mL 20 meq PO DAILY 11/28/24 History oral liquid duloxetine 60 mg capsule,delayed 60 mg PO DAILY 01/01/25 History release oxycodone 5 mg tablet 5 mg PO Q6H PRN pain 3 days #12 01/07/25 01/11/25 Rx tabs Allergy/AdvReac Type Severity Reaction Status Date / Time lisinopril Allergy edema Verified 01/11/25 10:14 aspirin AdvReac Upset Verified 01/11/25 10:14 Stomach Family History Mother Heart disease Surgical History History of thyroid surgery History of carotid angioplasty History of kidney stones History of basal cell carcinoma excision History of total hysterectomy Social History household members: none housing: house Smoking Status: Former smoker how long ago did patient quit smokin years ago alcohol intake: current alcohol intake frequency: holidays/special occasions only details: rare substance use type: does not use caffeine: Yes Type: coffee Number of servings: 1 Review of Systems (Anesthesia) ROS Narrative System reviewed and no additional complaints, except as documented.
--- NOTE | 2025-01-24 15:08 | OP.EGD_ITS ---
Patient Name: Chanel Rousseau Procedure Date: 01/24/2025 2:06 PM Date of : 1935 Age: 89 Procedure: Upper GI endoscopy Indications: Place PEG because patient is unable to eat, Place PEG due to impaired swallowing, Place PEG due to aspiration risk Providers: Teodoro Real DO Referring MD: Chuck Reynolds Medicines: Monitored Anesthesia Care Patient Profile: This is an 89 year old female. Refer to note in patient chart for documentation of history and physical. Patient has symptoms of dysphagia with both liquids and solids. Complications: No immediate complications. Procedure: Pre-Anesthesia Assessment: - Prior to the procedure, a History and Physical was performed, and patient medications and allergies were reviewed. The patient is competent. The risks and benefits of the procedure and the sedation options and risks were discussed with the patient. All questions were answered and informed consent was obtained. Patient identification and proposed procedure were verified by the physician in the pre-procedure area. Mental Status Examination: alert and oriented. Airway Examination: normal oropharyngeal airway and neck mobility. Respiratory Examination: clear to auscultation. CV Examination: normal. Prophylactic Antibiotics: The patient does not require prophylactic antibiotics. Prior Anticoagulants: The patient has taken no anticoagulant or antiplatelet agents except for NSAID medication. ASA Grade Assessment: II - A patient with mild systemic disease. After reviewing the risks and benefits, the patient was deemed in satisfactory condition to undergo the procedure. The anesthesia plan was to use monitored anesthesia care (MAC). Immediately prior to administration of medications, the patient was re-assessed for adequacy to receive sedatives. The heart rate, respiratory rate, oxygen saturations, blood pressure, adequacy of pulmonary ventilation, and response to care were monitored throughout the procedure. The physical status of the patient was re-assessed after the procedure. After obtaining informed consent, the endoscope was passed under direct vision. Throughout the procedure, the patient's blood pressure, pulse, and oxygen saturations were monitored continuously. The Endoscope was introduced through the mouth, and advanced to the second part of duodenum. The upper GI endoscopy was accomplished without difficulty. The patient tolerated the procedure well. Scope In: 2:52:59 PM Scope Out: 3:02:29 PM Total Procedure Duration Time 0 hours 9 minutes 30 seconds Findings: Abnormal motility was noted in the esophagus. The cricopharyngeus was abnormal. There is a decrease in motility of the esophageal body. The distal esophagus/lower esophageal sphincter is spastic, but gives up passage to the endoscope. Patchy mildly erythematous mucosa without bleeding was found in the gastric body. The patient was placed in the supine position for PEG placement. The stomach was insufflated to appose gastric and abdominal dorsey. A site was located in the cardia with excellent transillumination for placement. The abdominal wall was marked and prepped in a sterile manner. The area was anesthetized with 1 mL of 0.5% lidocaine. The trocar needle was introduced through the abdominal wall and into the stomach under direct endoscopic view. A snare was introduced through the endoscope and opened in the gastric lumen. The guide wire was passed through the trocar and into the open snare. The snare was closed around the guide wire. The endoscope and snare were removed, pulling the wire out through the mouth. A skin incision was made at the site of needle insertion. The endoscopically removable 20 Fr EndoVive Safety gastrostomy tube was lubricated. The G-tube was tied to the guide wire and pulled through the mouth and into the stomach. The trocar needle was removed, and the gastrostomy tube was pulled out from the stomach through the skin. The external bumper was attached to the gastrostomy tube, and the tube was cut to remove the guide wire. The final position of the gastrostomy tube was confirmed by relook endoscopy, and skin marking noted to be 4 cm at the external bumper. The final tension and compression of the abdominal wall by the PEG tube and external bumper were checked and revealed that the PEG balloon was loose and not touching the stomach. The feeding tube was capped, and the tube site cleaned and dressed. The examined duodenum was normal. Impression: - Abnormal esophageal motility, established achalasia. - Erythematous mucosa in the gastric body. - Normal examined duodenum. - An endoscopically removable PEG placement was successfully completed. - No specimens collected. Recommendation: - Please follow the post-PEG recommendations. - Continue present medications. Procedure Code(s): --- Professional --- 06741, Esophagogastroduodenoscopy, flexible, transoral; with directed placement of percutaneous gastrostomy tube CPT copyright 2021 [employer]. All rights reserved. The codes documented in this report are preliminary and upon archaeology professor review may be revised to meet current compliance requirements. Teodoro Real DO 01/24/2025 3:07:36 PM This report has been signed electronically. Number of Addenda: 0 Note Initiated On: 01/24/2025 2:06 PM
--- NOTE | 2025-01-24 15:08 | OP.CCLET_ITS ---
01/24/2025 Viktoriya Lamb [address] [place] [address] Re : Upper GI endoscopy procedure for Chanel Rousseau Dear Dr. Lamb This procedure was performed on January. My impressions and recommendations are as follows: Impressions : - Abnormal esophageal motility, established achalasia. - Erythematous mucosa in the gastric body. - Normal examined duodenum. - An endoscopically removable PEG placement was successfully completed. - No specimens collected. Recommendations : - Please follow the post-PEG recommendations. - Continue present medications. My findings are described in the full procedure note, which is enclosed. If I can be of further assistance, please feel free to contact me at . Sincerely, Teodoro Real, 01/24/2025 3:07:36 PM This report has been signed electronically.
--- NOTE | 2025-01-24 15:13 | PCM.POST.ANE ---
Anesthesia: Postop Eval I Current Vital Signs Temperature: 36 F Pulse Rate: 84 Blood Pressure: 90/35 Respiratory Rate: 14 Pulse Ox: 96 Assessment Airway patent: Yes Spontaneous unlabored respirations: Yes nausea: No Vomiting: No Anesthesia Complication: No Fluid Hydration Crystalloid volume administer (ml): 200 Total IV fluid infused: 200 Progress Note Anesthesia document: Postop Eval 1 completed: Yes
--- NOTE | 2025-01-24 15:25 | PCM.PN.HOSP ---
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 and we should find a different alternate method of nutrition-I discussed this with the patient and recommended a PEG tube, it was the patient's wish that she have a PEG tube placed because otherwise she would not be able to have any nutrition. I contacted gastroenterology and notified them of the need for PEG tube, I also called patient's daughter and told her that I had a discussion with the patient and that she consented to a PEG tube. Patient is currently on 3 L of oxygen via nasal cannula. Objective Data Objective Data Vital Signs: Vital Signs Temp Pulse Resp BP Pulse Ox O2 Del Method O2 Flow Rate 36 F L 89 26 H 85/54 L 95 Nasal Cannula 3 01/24/25 15:13 01/24/25 15:15 01/24/25 15:15 01/24/25 15:15 01/24/25 15:15 01/24/25 15:15 01/24/25 15:15 FiO2 40 01/24/25 14:23 Oxygen Flow Rate (L/min) 3 Oxygen Delivery Method Nasal Cannula Weight: 66.2 kg Body Mass Index (BMI) 26.6 Intake & Output: Intake and Output for Last 24 Hours 01/22/25 01/23/25 01/24/25 23:59 23:59 23:59 Intake Total 400 / 400 200 / 200 100 / 100 Output Total 1900 / 2200 650 / 650 400 / 400 Balance -1500 / -1800 -450 / -450 -300 / -300 Lab / Micro Data 01/24/25 07:50 01/24/25 07:50 Labs: Laboratory Results - last 24 hr 01/24/25 07:50: WBC 5.7, RBC 2.77 L, Hgb 8.5 L, Hct 27.7 L, MCV 100.0 H, MCH 30.7, MCHC 30.7 L, RDW Std Deviation 55.9 H, RDW Coeff of Ha 15.5 H, Plt Count 199, MPV 11.4, Immature Gran % (Auto) 0.400, Neut % (Auto) 74.9 H, Lymph % (Auto) 12.6 L, [place] % (Auto) 9.1, Eos % (Auto) 2.3, Baso % (Auto) 0.7, Absolute Neuts (auto) 4.3, Absolute Lymphs (auto) 0.72 L, Nucleated RBC % 0, Sodium 148 H, Potassium 3.6, Chloride 108, Carbon Dioxide 23.6, Anion Gap 16 H, BUN 19, Creatinine 1.20, Estim Creat Clear Calc 29.48 L, Est GFR (MDRD) Non-Af 44 L, BUN/Creatinine Ratio 15.4, Glucose 95, Calcium 8.5, Phosphorus 3.4, Magnesium 2.1, Total Bilirubin 0.32, AST 43 H, ALT 26, Alkaline Phosphatase 123 H, Total Protein 6.0, Albumin 3.1 L, Globulin 3.0, Albumin/Globulin Ratio 1.0 Micro: Microbiology 01/15/25 18:27 Blood Culture (Wb) - Anticubital Left Blood Culture - Final No growth in 5 days. 01/15/25 17:45 Blood Culture (Wb) - Pic Blood Culture - Final No growth in 5 days. 01/15/25 17:58 Sputum, Induced/Lukens Gram Stain - Final 01/15/25 17:58 Sputum, Induced/Lukens Respiratory Culture - Final Yeast, not Sera albicans 01/11/25 22:14 Blood Culture (Wb) - Arm Left Blood Culture - Final No growth in 5 days. 01/11/25 14:15 Urine, Clean Catch Urine Culture - Final Klebsiella pneumoniae sp pneum 01/11/25 22:04 Nasal Secretion MRSA (PCR) - Final 01/11/25 23:00 Mucosa - Nasopharyngeal SARS-CoV-2, Influenza & RSV (PCR) - Final 01/11/25 11:05 Stool Stool Occult Blood (ROYAL) - Final Occult Blood Positive Rhythm Strip Rhythm Strip: Sinus Rhythm Rate: 90 Ectopy: None Physical Exam Narrative alert, oriented x3 and no apparent distress General Appearance: cooperative, well kempt and well developed Orientation / Consciousness: awake, oriented to person, oriented to place and oriented to time HEENT normocephalic, head/scalp atraumatic and moist oral mucous membranes Eyes PERRL, EOMs intact bilaterally and conjunctivae normal Neck supple, no JVD, thyroid normal and no carotid bruits General: trachea midline Resp normal respiratory effort, no retractions and no use of accessory muscles Resp Narrative: Patient has expiratory rhonchi bilaterally Auscultation: Negative for rales, rhonchi or wheezes Cardio regular rate, regular rhythm, S1 normal heart sound, S2 normal heart sound, no murmurs, no rub and no gallops GI normal to inspection, nondistended, normoactive bowel sounds, soft to palpation, non-tender and non-distended Extremity Extremity Narrative: Patient has a cast over her left forearm and wrist Skin no rashes or lesions noted General Skin Exam: no breakdown Neuro oriented x3, CN's II-XII intact bilaterally, moves all extremities, no focal motor deficits and no sensory deficits noted Sensorium / Orientation: awake and alert Speech: speech normal Psych affect normal Assessment & Plan Assessment/Plan (1) Sepsis: PLAN: Plan 1. Septic shock-secondary to acute cystitis and pneumonia, patient has completed her course of IV antibiotics #2 achalasia-patient underwent esophageal dilatation and Botox injection, she is currently n.p.o. due to concerns of aspiration, patient will need a PEG tube placement as she has consented to same #3 acute hypoxic respiratory failure- she is currently on nasal cannula oxygen #4 esophagitis-patient remains on PPI #5 hyperlipidemia-patient is on Lipitor-currently she is n.p.o. #6 C. difficile colitis-patient remains on p.o. vancomycin-currently she is n.p.o. #7 generalized debility-patient will need placement at least temporarily in a long term facility for rehab services Total clinical time spent by myself addressing the patient's medical issues, reviewing all of her data, and collaborating with patient's care team: 35 minutes Charges/Coding Visit Charges Inpatient E&M: 56456 Subs Hosp L2
[2025-01-24] MEDS: Vancomycin 125 MG/5 ML Susp PO.SYRINGE GT ×2 (18:18→23:17)
[2025-01-24] MEDS: Pantoprazole Sodium 40 MG in 0.9% Normal Saline (100mL MB+) 100 ML 300 MG IV (23:17)
[2025-01-25] VITALS (27 sets, daily range): BP systolic 95–140; BP diastolic 47–91; PULSE 82–145; RESP 14–38; TEMP 36.2–36.7; O2SAT 87–98; BMI 27.0
--- NOTE | 2025-01-25 03:55 | PCM.HOSP.N ---
Hospitalist Note Notified by nursing that patient was very anxious with sinus tachycardia to the 130s to 140s and tachypnea to the high 30s with shallow breaths. Had slowly increasing oxygen requirements overnight up to 6 L nasal cannula. Opted to give dose of IM Haldol 2 mg x 1. Patient had significant improvement with this with heart rate down to the 80s, respiration rate down to the low 20s and oxygen saturation to the high 90s on 4 L nasal cannula. May be beneficial to start patient on something like scheduled Seroquel but will defer this to the day team.
[2025-01-25] MEDS: Vancomycin 125 MG/5 ML Susp PO.SYRINGE GT ×3 (05:33→17:38)
[2025-01-25] MEDS: Heparin Injection (Vial) 5,000 UNIT/ML VIAL 5000 UNIT SC ×3 (05:34→21:32)
--- NOTE | 2025-01-25 06:49 | PCM.PN.INT ---
Assessment & Plan Assessment/Plan (1) Sepsis: PLAN: Plan RECOMMENDATIONS: 1. Supplemental oxygen to maintain saturations at or above 90%. 2. Nutritional support via PEG tube. 3. Continue bronchodilator therapy. 4. Continue appropriate DVT prophylaxis. 5. Encourage incentive spirometer use and mobilize patient as tolerated. 6. Start scheduled BuSpar to address underlying anxiety. IMPRESSIONS: 1. Septic shock Resolved. Clinical concern for underlying urinary tract source of infection +/- aspiration pneumonia. The patient ultimately developed fluid refractory hypotension, which required vasopressor support. The patient has been since weaned from Levophed and remains hemodynamically stable. The patient has subsequently completed her antibiotic treatment course. 2. Acute hypoxemic respiratory failure The patient has a known history of achalasia and was taken for endoscopic evaluation on January 15, at which time, the patient decompensated from a respiratory perspective and was intubated. She was noted to have significant food in the esophagus, with concern for an acute aspiration event leading to her respiratory decompensation. With supportive care, including antimicrobials and invasive mechanical ventilatory support, the patient was able to be extubated on January 21. Supplemental oxygen will be weaned to maintain saturations at or above 90%. Due to ongoing concerns for aspiration, the patient underwent PEG tube placement on January 24. Recommend initiating nutritional support via PEG tube as tolerated. 3. Acute kidney injury Resolved. Likely prerenal in etiology. Creatinine has stabilized at this time. Continue to monitor urine output. No current indication for renal replacement therapy. 4. History of achalasia The patient is status post endoscopic evaluation on January 15, during which time, the patient was noted to have a significant amount of food in the entire esophagus. A severe Schatzki ring was noted which was dilated. Botox was also injected. Ultimately, the patient underwent PEG tube placement on January 24. Continue current medical management per gastroenterology recommendations. 5. Recent left wrist fracture/recent C. difficile colitis on vancomycin/anemia/peripheral arterial disease/hypothyroidism Complicates care, management, recovery and prognosis. Continue supportive measures as noted above. PT/OT to work with the patient. This note was generated with [employer] software. It may contain incorrect words, spelling, and punctuation that were not noted in checking the note before signing. Subjective Subjective The patient was seen and examined at the bedside this morning. Events from the last 24 hours have been reviewed. Due to ongoing aspiration concerns, the patient underwent PEG tube placement yesterday afternoon. She is documented to be overall net +5.3 L for the hospitalization. The patient is currently maintaining appropriate oxygen saturations on 4 L/min via nasal cannula. She does report the presence of shortness of breath and anxiety this morning. Objective Data Objective Data The patient's most recent lab work, culture data and imaging studies have all been personally reviewed. Surface echocardiogram demonstrated mild concentric LVH with stage I diastolic dysfunction. Urine culture was positive for Klebsiella pneumonia. Vital Signs: Vital Signs Temp Pulse Resp BP Pulse Ox O2 Del Method O2 Flow Rate 98.0 F 136 H 29 H 123/75 H 92 Nasal Cannula 5 01/25/25 02:00 01/25/25 04:00 01/25/25 05:00 01/25/25 04:00 01/25/25 04:00 01/25/25 05:00 01/25/25 05:00 FiO2 40 01/25/25 00:29 Oxygen Flow Rate (L/min) 5 Oxygen Delivery Method Nasal Cannula Weight: 147 lb 14.883 oz Body Mass Index (BMI) 27.0 Intake & Output: Intake and Output for Last 24 Hours 01/23/25 01/24/25 01/25/25 23:59 23:59 23:59 Intake Total 200 / 200 230 / 230 Output Total 650 / 650 800 / 800 Balance -450 / -450 -570 / -570 Lab / Micro Data Attestation: I reviewed the patient's lab results. 01/25/25 07:06 01/25/25 07:06 Labs: Laboratory Results - last 24 hr 01/24/25 07:50: WBC 5.7, RBC 2.77 L, Hgb 8.5 L, Hct 27.7 L, MCV 100.0 H, MCH 30.7, MCHC 30.7 L, RDW Std Deviation 55.9 H, RDW Coeff of Ha 15.5 H, Plt Count 199, MPV 11.4, Immature Gran % (Auto) 0.400, Neut % (Auto) 74.9 H, Lymph % (Auto) 12.6 L, [place] % (Auto) 9.1, Eos % (Auto) 2.3, Baso % (Auto) 0.7, Absolute Neuts (auto) 4.3, Absolute Lymphs (auto) 0.72 L, Nucleated RBC % 0, Sodium 148 H, Potassium 3.6, Chloride 108, Carbon Dioxide 23.6, Anion Gap 16 H, BUN 19, Creatinine 1.20, Estim Creat Clear Calc 29.48 L, Est GFR (MDRD) Non-Af 44 L, BUN/Creatinine Ratio 15.4, Glucose 95, Calcium 8.5, Phosphorus 3.4, Magnesium 2.1, Total Bilirubin 0.32, AST 43 H, ALT 26, Alkaline Phosphatase 123 H, Total Protein 6.0, Albumin 3.1 L, Globulin 3.0, Albumin/Globulin Ratio 1.0 Micro: Microbiology 01/15/25 18:27 Blood Culture (Wb) - Anticubital Left Blood Culture - Final No growth in 5 days. 01/15/25 17:45 Blood Culture (Wb) - Pic Blood Culture - Final No growth in 5 days. 01/15/25 17:58 Sputum, Induced/Lukens Gram Stain - Final 01/15/25 17:58 Sputum, Induced/Lukens Respiratory Culture - Final Yeast, not Sera albicans 01/11/25 22:14 Blood Culture (Wb) - Arm Left Blood Culture - Final No growth in 5 days. 01/11/25 14:15 Urine, Clean Catch Urine Culture - Final Klebsiella pneumoniae sp pneum 01/11/25 22:04 Nasal Secretion MRSA (PCR) - Final 01/11/25 23:00 Mucosa - Nasopharyngeal SARS-CoV-2, Influenza & RSV (PCR) - Final 01/11/25 11:05 Stool Stool Occult Blood (ROYAL) - Final Occult Blood Positive ABG Data ABG results: ABG 01/23/25 06:11 Specimen Type ART Sample Site R Radial pH 7.43 Bicarbonate Actual 28.3 H Total CO2 30 Base Excess 4 H O2 Saturation 89 L O2 % 6.0 ABG pCO2 42.7 ABG pO2 56 L Mj Test N/A O2 Delivery Device Cannula Vent Mode Not entered Radiography Diagnostic Testing: Radiology Impression Chest X-Ray 01/21/25 05:30 IMPRESSION: Improved pulmonary venous congestion changes. Regressed bilateral perihilar and lower lung zones volume overloaded changes versus infiltrates. Decreased bilateral pleural effusion. Reading Location: [place] [id number] Rhythm Strip Rhythm Strip: Sinus Rhythm Rate: 90 Ectopy: None Physical Exam Const alert and no apparent distress General Appearance: cooperative HEENT normocephalic and moist oral mucous membranes HEENT Narrative: Facial ecchymoses noted Eyes EOMs intact bilaterally, conjunctivae normal and no scleral icterus Neck supple General: trachea midline Chest inspection of chest normal Resp no use of accessory muscles Effort and Inspection: tachypneic Auscultation: diminished lung sounds; Negative for rales, rhonchi or wheezes Cardio S1 normal heart sound and S2 normal heart sound Rate: tachycardic GI normal to inspection, nondistended, normoactive bowel sounds Extremity Extremity Narrative: Scattered ecchymoses on extremities General Extremity: edema; Negative for clubbing Neuro CN's II-XII intact bilaterally, moves all extremities and no focal motor deficits Psych Mood & Affect: flat affect Charges/Coding Visit Charges Inpatient E&M: 58181 Subs Hosp L2
[2025-01-25] MEDS: Budesonide Respules 0.5 MG/2 ML AMPUL.NEB. INHALATION (07:04)
[2025-01-25 07:19] LABS: Hematocrit 28.6 % (37-47); Hemoglobin 8.7 g/dL (12.0-15.0); Immature Granulocytes Count 0.050 X10^3/uL (0.0-0.0); Mean Corp Hgb Conc 30.4 g/dL (32-36); Mean Corpuscular Volume 101.8 fL (81-99); Mean Platelet Vol. 11.3 fl (6.2-12.0); NRBC Flagged by Analyzer 0 % (0-5); Platelet Count 284 K/mm3 (150-450); RBC Distribution Width CV 15.7 % (11.6-14.6); RBC Distribution Width SD 57.6 fl (35.1-43.9); Red Blood Count 2.81 M/mm3 (4.2-5.4); White Blood Count 8.7 K/mm3 (4.4-11.0)
[2025-01-25 07:45] LABS: Anion Gap 19 (5-15); BUN 19 mg/dL (4-19); BUN/Creat Ratio 14.2 RATIO (10-20); Calcium,Total 8.6 mg/dL (7.6-11.0); Carbon Dioxide 21.6 mmol/L (21.0-32.0); Chloride 107 mmol/L (98-108); Estimated Creatinine Clearance 26.77 ml/min (50-250); Glucose 117 mg/dL (70-99); Potassium 3.9 mmol/L (3.3-5.1)
[2025-01-25] MEDS: Acetaminophen 650 MG/20 ML UDC 1000 MG GT (08:00)
[2025-01-25] MEDS: Cholecalciferol (Vit D3) 125 MCG CAPSULE (5,000 UNITS) GT (08:01)
[2025-01-25] MEDS: Pantoprazole Sodium 40 MG in 0.9% Normal Saline (100mL MB+) 100 ML 300 MG IV ×2 (11:38→21:33)
[2025-01-25] MEDS: 0.9% Saline Lock 10 ML Syringe IV ×4 (11:39→23:45)
--- NOTE | 2025-01-25 13:05 | PN.HOSP_ITS ---
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 I placed the patient on Atarax 4 times a day for anxiety, pulmonary medicine does not prefer benzodiazepines due to its sedating effects and effects on respiration. Objective Data Objective Data Vital Signs: Vital Signs Temp Pulse Resp BP Pulse Ox O2 Del Method O2 Flow Rate 97.2 F L 85 23 H 125/79 H 94 Nasal Cannula 4 01/25/25 12:00 01/25/25 12:00 01/25/25 12:00 01/25/25 12:00 01/25/25 12:00 01/25/25 12:00 01/25/25 12:00 FiO2 40 01/25/25 00:29 Oxygen Flow Rate (L/min) 4 Oxygen Delivery Method Nasal Cannula Weight: 67.1 kg Body Mass Index (BMI) 27.0 Intake & Output: Intake and Output for Last 24 Hours 01/23/25 01/24/25 01/25/25 23:59 23:59 23:59 Intake Total 200 / 200 230 / 230 489.5 / 489.5 Output Total 650 / 650 800 / 800 Balance -450 / -450 -570 / -570 489.5 / 489.5 Lab / Micro Data 01/25/25 07:06 01/25/25 07:06 Labs: Laboratory Results - last 24 hr 01/25/25 07:06: WBC 8.7, RBC 2.81 L, Hgb 8.7 L, Hct 28.6 L, MCV 101.8 H, MCH 31.0, MCHC 30.4 L, RDW Std Deviation 57.6 H, RDW Coeff of Ha 15.7 H, Plt Count 284, MPV 11.3, Immature Gran % (Auto) 0.600, Neut % (Auto) 78.7 H, Lymph % (Auto) 9.8 L, [place] % (Auto) 9.8, Eos % (Auto) 0.5, Baso % (Auto) 0.6, Absolute Neuts (auto) 6.9, Absolute Lymphs (auto) 0.85, Nucleated RBC % 0, Sodium 148 H, Potassium 3.9, Chloride 107, Carbon Dioxide 21.6, Anion Gap 19 H, BUN 19, C reatinine 1.33 H, Estim Creat Clear Calc 26.77 L, Est GFR (MDRD) Non-Af 39 L, BUN/Creatinine Ratio 14.2, Glucose 117 H, Calcium 8.6 Micro: Microbiology 01/15/25 18:27 Blood Culture (Wb) - Anticubital Left Blood Culture - Final No growth in 5 days. 01/15/25 17:45 Blood Culture (Wb) - Pic Blood Culture - Final No growth in 5 days. 01/15/25 17:58 Sputum, Induced/Lukens Gram Stain - Final 01/15/25 17:58 Sputum, Induced/Lukens Respiratory Culture - Final Yeast, not Sera albicans 01/11/25 22:14 Blood Culture (Wb) - Arm Left Blood Culture - Final No growth in 5 days. 01/11/25 14:15 Urine, Clean Catch Urine Culture - Final Klebsiella pneumoniae sp pneum 01/11/25 22:04 Nasal Secretion MRSA (PCR) - Final 01/11/25 23:00 Mucosa - Nasopharyngeal SARS-CoV-2, Influenza & RSV (PCR) - Final 01/11/25 11:05 Stool Stool Occult Blood (ROYAL) - Final Occult Blood Positive Rhythm Strip Rhythm Strip: Sinus Rhythm Rate: 90 Ectopy: None Physical Exam Narrative alert, oriented x3 and no apparent distress General Appearance: cooperative, well kempt and well developed Orientation / Consciousness: awake, oriented to person, oriented to place and oriented to time HEENT normocephalic, head/scalp atraumatic and moist oral mucous membranes Eyes PERRL, EOMs intact bilaterally and conjunctivae normal Neck supple, no JVD, thyroid normal and no carotid bruits General: trachea midline Resp normal respiratory effort, no retractions and no use of accessory muscles Resp Narrative: Patient has expiratory rhonchi bilaterally Auscultation: Negative for rales, rhonchi or wheezes Cardio regular rate, regular rhythm, S1 normal heart sound, S2 normal heart sound, no murmurs, no rub and no gallops GI normal to inspection, nondistended, normoactive bowel sounds, soft to palpation, non-tender and non-distended Extremity Extremity Narrative: Patient has a cast over her left forearm and wrist Skin no rashes or lesions noted General Skin Exam: no breakdown Neuro oriented x3, CN's II-XII intact bilaterally, moves all extremities, no focal motor deficits and no sensory deficits noted Sensorium / Orientation: awake and alert Speech: speech normal Psych affect normal Assessment & Plan Assessment/Plan (1) Sepsis: PLAN: Plan 1. Septic shock-secondary to acute cystitis and pneumonia, patient has completed her course of IV antibiotics #2 achalasia-patient underwent esophageal dilatation and Botox injection, she is currently n.p.o. due to concerns of aspiration, patient had a PEG tube placed yesterday #3 acute hypoxic respiratory failure- she is currently on nasal cannula oxygen #4 esophagitis-patient remains on PPI #5 hyperlipidemia-patient is on Lipitor-currently she is n.p.o. #6 C. difficile colitis-patient remains on p.o. vancomycin-currently she is n.p.o. #7 generalized debility-patient will need placement at least temporarily in a correction facility for rehab services #8 chronic anxiety-again I placed the patient on Atarax for some mild sedation, she was placed on BuSpar by pulmonary medicine today. Total clinical time spent by myself addressing the patient's medical issues, reviewing all of her data, and collaborating with patient's care team: 35 minutes Charges/Coding Visit Charges Inpatient E&M: 09436 Subs Hosp L2
[2025-01-25] MEDS: Jevity 1.5 1,000 ML 15 ML GT (13:13)
--- NOTE | 2025-01-25 17:44 | PN_ITS ---
Progress Note Patient tolerated PEG tube placement yesterday without any problem. She has been afebrile. No signs of bleeding. Physical Exam Const alert and no apparent distress General Appearance: cooperative HEENT normocephalic and moist oral mucous membranes HEENT Narrative: Facial ecchymoses noted Head and Scalp: Negative for temporal artery tenderness Eyes EOMs intact bilaterally, conjunctivae normal and no scleral icterus Neck supple General: trachea midline Chest inspection of chest normal Resp no use of accessory muscles Effort and Inspection: tachypneic Auscultation: diminished lung sounds; Negative for rales, rhonchi or wheezes Cardio S1 normal heart sound and S2 normal heart sound Rate: tachycardic GI normal to inspection, nondistended, normoactive bowel sounds Extremity Extremity Narrative: Scattered ecchymoses on extremities General Extremity: edema; Negative for clubbing Neuro CN's II-XII intact bilaterally, moves all extremities and no focal motor deficits Psych Mood & Affect: flat affect Assessment & Plan Assessment/Plan (1) ABLA (acute blood loss anemia): (2) UGIB (upper gastrointestinal bleed): (3) Achalasia: (4) Sepsis: PLAN: Plan Patient is an 89-year-old lady who presented following a fall. Patient was found to be hypotensive on admission. Subsequently diagnosed with septic shock secondary to combination of pneumonia and acute cystitis. She developed worsening esophageal dysphagia. She underwent evaluation was discovered to have severe food impaction secondary to achalasia. The food was removed and Botox was ingested into the lower esophageal sphincter. However during the initial intubation of the esophagus she had a a lot of food that was regurgitated back into the mouth and she did have some aspiration. The patient was intubated for airway support prior to finishing her EGD so the food could be removed and her achalasia could be treated. She is currently extubated and doing well off of pressor therapy still antibiotics. Recommend barium esophagram prior to advancing diet as tolerated. 01/23/2025- Moderate oropharyngeal dysphagia and esophageal dysphagia The esophageal phase is marked by... -Esophagus appears tortuous. -Retention of pudding in the lower esophagus w/ retrograde flow to the middle esophagus. -Retention of cookie in the lower esophagus. The patient may require supplemental feeding with a percutaneous feeding tube. As an outpatient patient should be evaluated for either a POEM'S procedure or Heller myotomy with Hazel fundoplication. Patient is on modified diet. Caution with any medications or oral feeding. 01/24/2025-patient will undergo percutaneous endoscopic gastrostomy tube placement. She and the family were explained alternatives, risk and benefits include not withstanding bleeding, infection, sepsis, perforation, need for surgery . She will have an ASA of 3. 01/25/2025-continue tube feedings up to goal. Visit Charges Inpatient E&M: 01281 [facility] Hosp L3
--- NOTE | 2025-01-25 20:37 | RAD_ITS ---
PROCEDURE: CHEST 1 VIEW (PORTABLE) 01/25/2025 REASON FOR EXAM: WORSENING HYPOXIA TECHNIQUE: Frontal view of the chest. COMPARISON: Chest radiographs 01/23/2025 and 01/21/2025, CT chest on 01/13/2020 FINDINGS: Lines/tubes: Right PICC line in unchanged position. Heart: Cardiac and mediastinal contours are prominent, unchanged. Lungs: Lung volumes are slightly low. Patchy opacity at the lung bases and perihilar regions, with bilateral pleural effusions. Findings are increased in prominence compared to 01/23/2025 radiographs, most notably at the right lung base. Bones: Degenerative changes are identified within the thoracic spine. RAD/Chest 1 View (Portable) IMPRESSION: Increasing opacity compared to radiographs on 01/23/2025, most notably at the r ight lung base, may represent worsening pleural effusion and/or airspace disease. Hypoventilatory changes could also contribut e. Reading Location: [place]
[2025-01-26] VITALS (49 sets, daily range): BP systolic 82–149; BP diastolic 36–94; PULSE 53–127; RESP 14–50; TEMP 36.8–37.7; O2SAT 93–100; BMI 27.2
[2025-01-26] MEDS: Vancomycin 125 MG/5 ML Susp PO.SYRINGE GT ×5 (00:05→23:54)
[2025-01-26] MEDS: 0.9% Saline Lock 10 ML Syringe IV ×3 (01:59→05:00)
--- NOTE | 2025-01-26 03:02 | PN.HOSP_ITS ---
Hospitalist Note Noted by nursing earlier this evening around 8 PM the patient oxygen requirements were steadily worsening and she was up to 10 L nasal cannula with saturations around 90%. Obtained chest x-ray that showed increasing opacities compared to chest x-ray from 01/23 most notably at the right lung base concerning for worsening pleural effusion versus airspace disease. Patient was noted to be tachycardic and had shallow breathing as she has at several points over the past few days. Gave doses of IV Lasix and IM Haldol. Patient slept for about 2 h ours with improvement in oxygen saturation and heart rate. She only had about 200 cc of urine output with Lasix. Unfortunately when patient woke up again she became tachycardic and more hypoxic. I was called at the bedside around 2:30 AM and patient was on BiPAP with respiration rate in the 40s and significant increased work of breathing. Transferred patient to the ICU and intubated the patient for impending respiratory failure. See procedure note for details regarding the intubation. Will place patient on fentanyl and Precedex drips as these were effective earlier in the hospitalization for her. Called patient's daughter Dora to notify her of these events and she was appreciative of the call.
[2025-01-26] MEDS: fentaNYL drip 100 ML 5 MCG CONT INF (03:08)
--- NOTE | 2025-01-26 03:09 | PCM.HOSP.N ---
Hospitalist Note Intubation note: Patient with evidence of impending respiratory failure, see quick note for further details. Medications administered: Etomidate 30 mg ETT size: 7.5 Patient was intubated in standard fashion with visualization of the vocal cords with Glidescope and passage of the ETT. Positioning was verified with auscultation. Postintubation chest x-ray ordered. Procedures Hospitalists Procedures: [id number] Insert Emergency Airway
--- NOTE | 2025-01-26 03:10 | RAD_ITS ---
PROCEDURE: CHEST 1 VIEW (PORTABLE) 01/26/2025 REASON FOR EXAM: ETT PLACEMENT TECHNIQUE: Frontal view of the chest. COMPARISON: 01/25/2025 FINDINGS: Lines/tubes: Right PICC line in unchanged position.Newly applied ETT with its tip is seen ending 1 cm away from sofia, advise retraction by 3 cm. Heart: Cardiac and mediastinal contours are prominent, unchanged. Lungs: Lung volumes are slightly low. Patchy opacity at the lung bases and perihilar regions, with bilateral pleural effusions. Findings are increased in prominence compared to 01/25/2025 radiographs, most notably at the right lung base. Bones: Degenerative changes are identified within the thoracic spine. RAD/Chest 1 View (Portable) IMPRESSION: Increasing opacity compared to radiographs on 01/25/2025, most notably at the r ight lung base, may represent worsening pleural effusion and/or airspace disease. Hypoventilatory changes could also contribute . Newly applied ETT with its tip is seen ending 1 cm away from sofia, advise ret raction by 3 cm. Reading Location: [place] [id number]
[2025-01-26] MEDS: dexMEDEtomidine 400 MCG in 0.9% Normal Saline (100mL Bag) 96 ML 8.4 MCG CONT INF (03:15)
--- NOTE | 2025-01-26 03:35 | NURSING ---
Dr. Mcleod at bedside for intubation. Patient arrived from PCU on the bipap. 0255: 30 mg etomidate IVP x1 given 0256: intubated w/ #7.5 ETT, 22 @ lip, positive color change and bilateral breath sounds 0308: additional 10 mg etomidate IVP x1 given per Dr. Mcleod while awaiting precedex to arrive from pharmacy. Radiology at bedside.
[2025-01-26 04:47] LABS: Base Excess 4 mmol/L (-2 to +2); FI02 60.0; PEEP 5; PO2 123 mmHG (75-100); RR 14; SITE L Brach; SO2 99 % (95-99)
[2025-01-26] MEDS: TITRATION PARAMETER CHANGE 1 EACH IV (05:00)
[2025-01-26] MEDS: CHLORHEXIDINE GLUC 2% CLOTH 1 EACH TOWELETTE TOPICAL ×2 (05:00→23:54)
[2025-01-26] MEDS: Heparin Injection (Vial) 5,000 UNIT/ML VIAL 5000 UNIT SC ×3 (05:00→21:41)
[2025-01-26 05:09] LABS: Hematocrit 23.9 % (37-47); Hemoglobin 7.5 g/dL (12.0-15.0); Immature Granulocytes Count 0.020 X10^3/uL (0.0-0.0); Mean Corp Hgb Conc 31.4 g/dL (32-36); Mean Corpuscular Volume 98.0 fL (81-99); Mean Platelet Vol. 11.4 fl (6.2-12.0); NRBC Flagged by Analyzer 0 % (0-5); POSITIVE DIFFERENTIAL YES; Platelet Count 196 K/mm3 (150-450); RBC Distribution Width CV 15.7 % (11.6-14.6); RBC Distribution Width SD 54.0 fl (35.1-43.9); Red Blood Count 2.44 M/mm3 (4.2-5.4); White Blood Count 4.3 K/mm3 (4.4-11.0)
[2025-01-26 06:03] LABS: AST(SGOT) 475 U/L (<=31); Alanine Aminotransfer ALT/SGPT 140 U/L (<=34); Albumin, Serum 2.9 g/dL (3.4-4.8); Alkaline Phosphatase 147 U/L (35-104); Anion Gap 17 (5-15); BUN 23 mg/dL (4-19); BUN/Creat Ratio 14.9 RATIO (10-20); Calcium,Total 8.3 mg/dL (7.6-11.0); Carbon Dioxide 22.9 mmol/L (21.0-32.0); Chloride 108 mmol/L (98-108); Estimated Creatinine Clearance 23.58 ml/min (50-250); Globulin 2.5 g/dL (2.2-4.2); Glucose 107 mg/dL (70-99); Magnesium 1.7 mg/dL (1.5-2.2); Potassium 3.1 mmol/L (3.3-5.1)
[2025-01-26] MEDS: Pantoprazole Sodium 40 MG in 0.9% Normal Saline (100mL MB+) 100 ML 300 MG IV (07:36)
[2025-01-26] MEDS: Cholecalciferol (Vit D3) 125 MCG CAPSULE (5,000 UNITS) GT (07:39)
[2025-01-26] MEDS: dexMEDEtomidine 400 MCG in 0.9% Normal Saline (100mL Bag) 96 ML 18.5 MCG CONT INF (08:16)
[2025-01-26] MEDS: Chlorhexidine 15 ML PO ×2 (08:17→21:38)
[2025-01-26] MEDS: fentaNYL drip 100 ML 12.5 MCG CONT INF ×2 (11:05→19:10)
[2025-01-26] MEDS: dexMEDEtomidine 400 MCG in 0.9% Normal Saline (100mL Bag) 96 ML 16.8 MCG CONT INF (13:23)
[2025-01-26] MEDS: Potassium Chloride Oral Soln 20 MEQ/15 ML UDC 40 MEQ GT (13:34)
[2025-01-26] MEDS: Magnesium Sulfate 2 GM in Dextrose 5%-Water (100mL Bag) 100 ML IV (13:34)
--- NOTE | 2025-01-26 15:00 | PN.HOSP_ITS ---
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 Objective Data Objective Data Vital Signs: Vital Signs Temp Pulse Resp BP Pulse Ox O2 Del Method O2 Flow Rate 98.4 F 63 14 99/47 L 95 Mechanical Ventilator 55 01/26/25 09:00 01/26/25 14:00 01/26/25 14:00 01/26/25 14:00 01/26/25 14:00 01/26/25 14:00 01/26/25 01:00 FiO2 35 01/26/25 14:00 Oxygen Flow Rate (L/min) 55 Oxygen Delivery Method Mechanical Ventilator Weight: 67.1 kg Body Mass Index (BMI) 27.2 Intake & Output: Intake and Output for Last 24 Hours 01/24/25 01/25/25 01/26/25 23:59 23:59 23:59 Intake Total 230 / 230 960.0 / 960.0 618.01 / 618.01 Output Total 800 / 800 2175 / 2175 Balance -570 / -570 960.0 / 710.0 -1556.99 / -1556.99 Lab / Micro Data 01/26/25 04:55 01/26/25 04:55 Labs: Laboratory Results - last 24 hr 01/26/25 04:55: WBC 4.3 L, RBC 2.44 L, Hgb 7.5 L, Hct 23.9 L, MCV 98.0, MCH 30.7, MCHC 31.4 L, RDW Std Deviation 54.0 H, RDW Coeff of Ha 15.7 H, Plt Count 196, MPV 11.4, Immature Gran % (Auto) 0.500, Neut % (Auto) 76.6 H, Lymph % (Auto) 10.5 L, [place] % (Auto) 10.7 H, Eos % (Auto) 1.2, Baso % (Auto) 0.5, Absolute Neuts (auto) 3.3, Absolute Lymphs (auto) 0.45 L, Nucleated RBC % 0, S odium 149 H, Potassium 3.1 L, Chloride 108, Carbon Dioxide 22.9, Anion Gap 17 H, BUN 23 H, Creatinine 1.51 H, Estim Creat Clear Calc 23.58 L, Est GFR (MDRD) Non- Af 33 L, BUN/Creatinine Ratio 14.9, Glucose 107 H, Calcium 8.3, Phosphorus 3.3, Magnesium 1.7, Total Bilirubin 0.42, AST 475 H, ALT 140 H, Alkaline Phosphatase 147 H, Total Protein 5.5 L, Albumin 2.9 L, Globulin 2.5, Albumin/Globulin Ratio 1.2 Micro: Microbiology 01/15/25 18:27 Blood Culture (Wb) - Anticubital Left Blood Culture - Final No growth in 5 days. 01/15/25 17:45 Blood Culture (Wb) - Pic Blood Culture - Final No growth in 5 days. 01/15/25 17:58 Sputum, Induced/Lukens Gram Stain - Final 01/15/25 17:58 Sputum, Induced/Lukens Respiratory Culture - Final Yeast, not Sera albicans 01/11/25 22:14 Blood Culture (Wb) - Arm Left Blood Culture - Final No growth in 5 days. 01/11/25 14:15 Urine, Clean Catch Urine Culture - Final Klebsiella pneumoniae sp pneum 01/11/25 22:04 Nasal Secretion MRSA (PCR) - Final 01/11/25 23:00 Mucosa - Nasopharyngeal SARS-CoV-2, Influenza & RSV (PCR) - Final 01/11/25 11:05 Stool Stool Occult Blood (ROYAL) - Final Occult Blood Positive ABG Data ABG results: ABG 01/26/25 04:41 Specimen Type ART Sample Site L Brach pH 7.47 H Bicarbonate Actual 27.3 H Total CO2 29 Base Excess 4 H O2 Saturation 99 O2 % 60.0 ABG pCO2 37.7 ABG pO2 123 H Mj Test N/A Respiration Rate 14 O2 Delivery Device Adult Vent Vent Mode AC Tidal Volume 450.0 POC PEEP 5 Radiography Diagnostic Testing: Radiology Impression Chest X-Ray 01/25/25 20:37 IMPRESSION: Increasing opacity compared to radiographs on 01/23/2025, most notably at the right lung base, may represent worsening pleural effusion and/or airspace disease. Hypoventilatory changes could also contribute. Reading Location: [facility] Chest X-Ray 01/26/25 03:10 IMPRESSION: Increasing opacity compared to radiographs on 01/25/2025, most notably at the right lung base, may represent worsening pleural effusion and/or airspace disease. Hypoventilatory changes could also contribute. Newly applied ETT with its tip is seen ending 1 cm away from sofia, advise retraction by 3 cm. Reading Location: [place] [address] Rhythm Strip Rhythm Strip: Sinus Rhythm Rate: 90 Ectopy: None Physical Exam Const Constitutional Narrative: Patient is sedated on the ventilator General Appearance: well kempt and well developed HEENT normocephalic, head/scalp atraumatic and moist oral mucous membranes Eyes conjunctivae normal Neck supple, no JVD and thyroid normal General: trachea midline Resp no retractions, no use of accessory muscles and clear to auscultation bilaterally Resp Narrative: Patient is not breathing above ventilator settings Auscultation: Negative for rales, rhonchi or wheezes Cardio regular rate, regular rhythm, S1 normal heart sound, S2 normal heart sound, no murmurs, no rub and no gallops GI normal to inspection, nondistended, normoactive bowel sounds, soft to palpation, non-tender and non-distended Extremity normal to inspection and no clubbing, cyanosis or edema Skin no rashes or lesions noted General Skin Exam: no breakdown Neuro Neuro Narrative: Patient is sedated and on the ventilator Psych Psych Narrative: Patient is sedated and on the ventilator Assessment & Plan Assessment/Plan (1) Sepsis: PLAN: Plan 1. Acute hypoxic respiratory failure-most likely from recurrent aspiration pneumonia-I decided to place the patient on meropenem antibiotic coverage, continue present treatment #2 achalasia-patient underwent esophageal dilatation and Botox injection, patient had a PEG tube placed #3 esophagitis-patient remains on PPI #4 hyperlipidemia-patient is on Lipitor-currently she is n.p.o. #5 C. difficile colitis-patient remains on liquid vancomycin-currently she is n.p.o. Total clinical time spent by myself addressing the patient's medical issues, reviewing all of her data, and collaborating with patient's care team: 35 minutes Charges/Coding Visit Charges Inpatient E&M: 63568 Subs Hosp L2
[2025-01-26] MEDS: Meropenem 500 MG in 0.9% Normal Saline (50mL MB+) 50 ML 100 MG IV ×2 (15:17→22:17)
[2025-01-26] MEDS: dexMEDEtomidine 400 MCG in 0.9% Normal Saline (100mL Bag) 96 ML 15.1 MCG CONT INF (20:00)
[2025-01-26] MEDS: Norepinephrine 8 MG in 0.9% Normal Saline (250mL Bag) 242 ML 9.4 MG CONT INF (20:15)
[2025-01-26] MEDS: Pantoprazole Sodium 40 MG in 0.9% Normal Saline (100mL MB+) 100 ML 330 MG IV (21:39)
--- NOTE | 2025-01-26 21:49 | PCM.PN.TICU ---
Objective Data Objective Data Vital Signs: Vital Signs Last response Temperature 37.5 C H 01/26/25 21:00 Temperature Source Core 01/26/25 21:00 Pulse Rate 69 01/26/25 21:00 Pulse Strength Normal (2+) 01/26/25 20:43 Respiratory Rate 14 01/26/25 21:00 Respiratory Effort Mechanically Ventilated 01/26/25 20:00 Respiratory Depth Normal 01/26/25 20:00 Respiratory Pattern Normal 01/26/25 20:00 Blood Pressure 119/50 L 01/26/25 21:45 Blood Pressure Mean 73 01/26/25 21:45 Blood Pressure Source Monitor 01/26/25 21:00 Blood Pressure Position Semi-Fowlers 01/26/25 21:00 Blood Pressure Location Left Arm 01/26/25 21:00 Baseline BP 142/71 01/24/25 15:30 Pulse Ox 95 01/26/25 21:00 Oxygen Delivery Method Mechanical Ventilator 01/26/25 21:00 Oxygen Flow Rate (L/min) 55 01/26/25 01:00 Fraction of Inspired Oxygen (FIO2) 35 01/26/25 21:00 I&O: I&O Last 24 Hours 01/25/25 01/26/25 01/26/25 23:59 11:59 23:59 Intake Total 570.5 / 960.0 537.68 / 1489.05 951.37 / 1489.05 Output Total 1750 / 2400 650 / 2400 Balance 570.5 / 710.0 -1212.32 / -910.95 301.37 / -910.95 I&O: Total Stay 01/11/25 10:13 thru 01/26/25 21:45 Intake Total 37800.79 Output Total 42582 Balance 5400.79 Current Meds Ordered / Administered: Current meds ordered / Administered Generic Name Dose Route Start Last Admin Trade Name Freq PRN Reason Stop Dose Admin Acetaminophen 1,000 mg 01/25/25 08:00 01/25/25 08:00 Acetaminophen 650 Mg/20 Ml Udc GT 1,000 mg Q8H PRN PRN Administration Pain 1-10 or Fever Albuterol Sulfate 2.5 mg 01/15/25 16:23 01/21/25 16:31 Albuterol 2.5 Mg/3 Ml Vial.Neb. INHALATION 2.5 mg Q2H PRN PRN Administration DYSPNEA/WHEEZING/SOB Albuterol/Ipratropium 3 ml 01/26/25 12:00 01/26/25 19:38 Ipratropium/Albuterol Sulfate 3 Ml Ampul.Neb INHALATION 3 ml Q6H.RT MUSA Administration Atorvastatin Calcium 40 mg 01/25/25 22:00 01/26/25 21:38 Atorvastatin Calcium 40 Mg Tablet GT 40 mg QHS MUSA Administration Buspirone HCl 10 mg 01/25/25 07:35 01/26/25 21:38 Buspirone 5 Mg Tablet GT 10 mg TID MUSA Administration Chlorhexidine Gluconate 1 each 01/26/25 10:00 01/26/25 05:00 Chlorhexidine Gluc 2% Cloth 1 Each Towelette TOPICAL 1 each DAILY MUSA Administration Chlorhexidine Gluconate 15 ml 01/26/25 10:00 01/26/25 21:38 Chlorhexidine 15 Ml PO 15 ml BID MUSA Administration Cholecalciferol 125 mcg 01/25/25 10:00 01/26/25 07:39 Cholecalciferol (Vit D3) 125 Mcg Capsule (5,000 Units) GT 125 mcg DAILY MUSA Administration Clopidogrel Bisulfate 75 mg 01/25/25 10:00 01/26/25 07:40 Clopidogrel Bisulfate 75 Mg Tablet GT 75 mg DAILY MUSA Administration Heparin Sodium (Porcine) 5,000 unit 01/16/25 14:00 01/26/25 21:41 Heparin Injection (Vial) 5,000 Unit/Ml Vial SC 5,000 unit Q8 MUSA Administration Hydroxyzine HCl 20 mg 01/25/25 12:00 01/26/25 21:38 Hydroxyzine 10 Mg Tablet GT 20 mg 4X/DAY MUSA Administration Pantoprazole Sodium 40 mg/ 100 mls @ 300 mls/hr 01/15/25 22:00 01/26/25 21:39 Sodium Chloride IV 330 mls/hr Q12 MUSA Administration Lactated Ringer's 1,000 mls @ 15 mls/hr 01/24/25 14:15 01/26/25 13:26 IV Not Given .Q48H MUSA Enteral Nutritional Formula 1,000 mls @ 45 mls/hr 01/25/25 10:00 01/26/25 20:34 Jevity 1.5 GT 30 mls/hr .[id number] MUSA Infusion Fentanyl 100 mls @ 5 mls/hr 01/26/25 02:55 01/26/25 21:00 CONT INF 125 mcg/hr UD MUSA 12.5 mls/hr Titration Protocol 50 MCG/HR Dexmedetomidine HCl 400 mcg/ 100 mls @ 8.388 mls/hr 01/26/25 03:00 01/26/25 21:00 Sodium Chloride CONT INF 0.9 mcg/kg/hr .[id number] MUSA 15.1 mls/hr Titration Protocol 0.5 MCG/KG/HR Meropenem 500 mg/ Sodium 60 mls @ 100 mls/hr 01/26/25 14:00 01/26/25 16:31 Chloride IV Infused Q12 MUSA Infusion Norepinephrine Bitartrate 8 mg 250 mls @ 9.375 mls/hr 01/26/25 19:45 01/26/25 21:45 / Sodium Chloride CONT INF 4 mcg/min .[id number] MUSA 7.5 mls/hr Titration Protocol 5 MCG/MIN Metoprolol Tartrate 5 mg 01/24/25 13:00 01/25/25 02:24 Metoprolol Tartrate 5 Mg/5 Ml Vial IV 5 mg Q6 PRN Administration HR>100 Protocol Morphine Sulfate 4 mg 01/23/25 17:44 01/25/25 01:23 Morphine 4 Mg/Ml Syringe IV 4 mg Q3H PRN PRN Administration Pain Score 1-10 Ondansetron HCl 4 mg 01/11/25 16:03 Ondansetron 4 Mg/2 Ml Vial IV Q8H PRN PRN NAUSEA/VOMITING Oxycodone HCl 5 - 10 mg 01/25/25 07:49 01/25/25 11:38 Oxycodone 5 Mg Tablet GT 10 mg Q6H PRN PRN Administration Pain Score 1-10 Pramipexole Dihydrochloride 1.5 mg 01/25/25 22:00 01/26/25 21:38 Pramipexole Di-Hcl 0.5 Mg Tablet GT 1.5 mg QHS MUSA Administration Sodium Chloride 10 - 40 ml 01/11/25 16:11 01/26/25 05:00 0.9% Saline Lock 10 Ml Syringe IV 20 ml UD PRN Administration SALINE FLUSH Sodium Chloride 250 ml 01/19/25 15:07 01/19/25 17:34 0.9% Normal Saline 250 Ml Iv.Soln. IV 250 ml PRN PRN Administration IV flush Vancomycin HCl 125 mg 01/16/25 00:00 01/26/25 16:31 Vancomycin 125 Mg/5 Ml Susp Po.Syringe GT 125 mg Q6 MUSA Administration Lab / Micro Data 01/26/25 04:55 01/26/25 04:55 Labs: Laboratory Results - last 24 hr 01/26/25 04:55: WBC 4.3 L, RBC 2.44 L, Hgb 7.5 L, Hct 23.9 L, MCV 98.0, MCH 30.7, MCHC 31.4 L, RDW Std Deviation 54.0 H, RDW Coeff of Ha 15.7 H, Plt Count 196, MPV 11.4, Immature Gran % (Auto) 0.500, Neut % (Auto) 76.6 H, Lymph % (Auto) 10.5 L, [place] % (Auto) 10.7 H, Eos % (Auto) 1.2, Baso % (Auto) 0.5, Absolute Neuts (auto) 3.3, Absolute Lymphs (auto) 0.45 L, Nucleated RBC % 0, Sodium 149 H, Potassium 3.1 L, Chloride 108, Carbon Dioxide 22.9, Anion Gap 17 H, BUN 23 H, Creatinine 1.51 H, Estim Creat Clear Calc 23.58 L, Est GFR (MDRD) Non-Af 33 L, BUN/Creatinine Ratio 14.9, Glucose 107 H, Calcium 8.3, Phosphorus 3.3, Magnesium 1.7, Total Bilirubin 0.42, AST 475 H, ALT 140 H, Alkaline Phosphatase 147 H, Total Protein 5.5 L, Albumin 2.9 L, Globulin 2.5, Albumin/Globulin Ratio 1.2 Micro: Microbiology 01/26/25 03:10 Sputum, Induced/Lukens Gram Stain - Final ABG Data ABG results: ABG 01/26/25 04:41 Specimen Type ART Sample Site L Brach pH 7.47 H Bicarbonate Actual 27.3 H Total CO2 29 Base Excess 4 H O2 Saturation 99 O2 % 60.0 ABG pCO2 37.7 ABG pO2 123 H Mj Test N/A Respiration Rate 14 O2 Delivery Device Adult Vent Vent Mode AC Tidal Volume 450.0 POC PEEP 5 Rhythm Strip Rhythm Strip: Sinus Rhythm Rate: 90 Ectopy: None Imaging Radiology Impression Chest X-Ray 01/26/25 03:10 IMPRESSION: Increasing opacity compared to radiographs on 01/25/2025, most notably at the right lung base, may represent worsening pleural effusion and/or airspace disease. Hypoventilatory changes could also contribute. Newly applied ETT with its tip is seen ending 1 cm away from sofia, advise retraction by 3 cm. Reading [facility] [address] Assessment and Plan . Assessment and plan: [facility] Patient seen and examined Chart and data reviewed Events noted - developed respiratory distress and required re-intubation and MV support overnight Sedated w/ precedex and fentanyl MV reviewed - modest requirement Right lower lung field density on CXR TF via PEG UOP fair - creatinine elevated She is receiving IV ABX EXAM GEN NAD, sedated VS as above HEENT RAHUL NECK supple COR RRR CHEST decreased ABD soft, LUQ PEG EXT miinimal edema SKIN w/d HAROLDO NF, sedated ASSESSMENT 1. Acute respiratory failure requiring MV support 2. Suspected aspiration into airway 3. Achalasia 4. BERNARDO 5. Hypernatremia / hypokalemia 6. Recent CDAD 7. Recent UTI 8. Recent PEG placement -MV support -sedation -ABX -TF via PEG -free water -supplement K+ -VTE ppx -follow renal function closely Critical Care Time: 50 minutes The entirety of this encounter was done via Telemedicine
[2025-01-27] VITALS (52 sets, daily range): BP systolic 75–144; BP diastolic 33–71; PULSE 64–87; RESP 14–22; TEMP 37.6–38.7; O2SAT 92–98; BMI 27.3
[2025-01-27] MEDS: dexMEDEtomidine 400 MCG in 0.9% Normal Saline (100mL Bag) 96 ML 16.8 MCG CONT INF (02:28)
[2025-01-27] MEDS: fentaNYL drip 100 ML 12.5 MCG CONT INF ×3 (03:28→18:52)
--- NOTE | 2025-01-27 05:00 | RAD_ITS ---
PROCEDURE: CHEST 1 VIEW (PORTABLE) 01/27/2025 REASON FOR EXAM: ARF TECHNIQUE: Frontal view of the chest. COMPARISON: Chest radiograph 01/26/2025. FINDINGS: Hardware: Interval retraction of the endotracheal tube, now measuring proximally 3.6 cm above the level of the sofia. Stable right PICC with tip overlying the expected region of the right atrium. Interval gastric tube removal. Heart: Cardiac and mediastinal contours are stable. Lungs: Stable moderate-sized right pleural effusion. Bilateral perihilar opacities, unchanged. No pneumothorax. Bones: Degenerative changes are identified within the thoracic spine. RAD/Chest 1 View (Portable) IMPRESSION: 1. Support devices as described. 2. Stable bilateral perihilar infiltrates, which may represent edema or pneumon ia. 3. Stable moderate right pleural effusion. Reading Location: [id number]
[2025-01-27] MEDS: Heparin Injection (Vial) 5,000 UNIT/ML VIAL 5000 UNIT SC ×3 (05:28→21:14)
[2025-01-27] MEDS: Vancomycin 125 MG/5 ML Susp PO.SYRINGE GT ×3 (05:28→17:06)
[2025-01-27 05:47] LABS: Hematocrit 27.5 % (37-47); Hemoglobin 8.5 g/dL (12.0-15.0); Immature Granulocytes Count 0.060 X10^3/uL (0.0-0.0); Mean Corp Hgb Conc 30.9 g/dL (32-36); Mean Corpuscular Volume 100.4 fL (81-99); Mean Platelet Vol. 11.3 fl (6.2-12.0); NRBC Flagged by Analyzer 0.5 % (0-5); Platelet Count 228 K/mm3 (150-450); RBC Distribution Width CV 16.2 % (11.6-14.6); RBC Distribution Width SD 56.7 fl (35.1-43.9); Red Blood Count 2.74 M/mm3 (4.2-5.4); White Blood Count 6.5 K/mm3 (4.4-11.0)
[2025-01-27 06:09] LABS: Allen Test Positive; Base Excess 2 mmol/L (-2 to +2); FI02 30.0; PEEP 5; PO2 55 mmHG (75-100); RR 14; SITE R Radial; SO2 91 % (95-99)
[2025-01-27 07:02] LABS: Anion Gap 12 (5-15); BUN 23 mg/dL (4-19); BUN/Creat Ratio 15.7 RATIO (10-20); Calcium,Total 7.8 mg/dL (7.6-11.0); Carbon Dioxide 25.0 mmol/L (21.0-32.0); Chloride 107 mmol/L (98-108); Estimated Creatinine Clearance 24.88 ml/min (50-250); Glucose 213 mg/dL (70-99); Potassium 3.4 mmol/L (3.3-5.1)
[2025-01-27] MEDS: Meropenem 500 MG in 0.9% Normal Saline (50mL MB+) 50 ML 100 MG IV ×2 (08:18→21:26)
[2025-01-27] MEDS: Cholecalciferol (Vit D3) 125 MCG CAPSULE (5,000 UNITS) GT (08:19)
[2025-01-27] MEDS: dexMEDEtomidine 400 MCG in 0.9% Normal Saline (100mL Bag) 96 ML 17 MCG CONT INF ×3 (08:36→21:12)
[2025-01-27] MEDS: Jevity 1.5 1,000 ML 45 ML GT ×2 (08:40→11:07)
[2025-01-27] MEDS: Chlorhexidine 15 ML PO ×2 (09:29→21:15)
[2025-01-27] MEDS: Pantoprazole Sodium 40 MG in 0.9% Normal Saline (100mL MB+) 100 ML 330 MG IV (09:29)
--- NOTE | 2025-01-27 13:32 | PN.CC_ITS ---
Objective Data Objective Data Vital Signs: Vital Signs Last response 3 Temperature 38.1 C H 01/27/25 12:00 Temperature Source Core 01/27/25 12:00 Pulse Rate 74 01/27/25 12:51 Pulse Strength Normal (2+) 01/27/25 08:58 Respiratory Rate 22 H 01/27/25 12:51 Respiratory Effort Mechanically Ventilated 01/27/25 12:00 Respiratory Depth Normal 01/27/25 12:00 Respiratory Pattern Normal 01/27/25 12:51 Blood Pressure 89/37 L 01/27/25 12:00 Blood Pressure Mean 54 01/27/25 12:00 Blood Pressure Source Monitor 01/27/25 12:00 Blood Pressure Position Semi-Fowlers 01/27/25 12:00 Blood Pressure Location Left Arm 01/27/25 12:00 Baseline BP 142/71 01/24/25 15:30 Pulse Ox 95 01/27/25 12:51 Oxygen Delivery Method Mechanical Ventilator 01/27/25 12:00 Oxygen Flow Rate (L/min) 55 01/26/25 01:00 Fraction of Inspired Oxygen (FIO2) 35 01/27/25 12:51 I&O: I&O Last 24 Hours 3 01/26/25 01/27/25 01/27/25 23:59 11:59 23:59 Intake Total 1278.47 / 2151.25 1922.19 / 2203.45 281.26 / 2203.45 Output Total 650 / 2450 150 / 375 225 / 375 Balance 628.47 / -298.75 1772.19 / 1828.45 56.26 / 1828.45 I&O: Total Stay 3 01/11/25 10:13 thru 01/27/25 12:00 Intake Total 47921.34 Output Total 99927 Balance 7556.34 Current Meds Ordered / Administered: Current meds ordered / Administered 3 Generic Name Dose Route Start Last Admin Trade Name Freq PRN Reason Stop Dose Admin Acetaminophen 1,000 mg 01/25/25 08:00 01/25/25 08:00 Acetaminophen 650 Mg/20 Ml Udc GT 1,000 mg Q8H PRN PRN Administration Pain 1-10 or Fever Albuterol Sulfate 2.5 mg 01/15/25 16:23 01/21/25 16:31 Albuterol 2.5 Mg/3 Ml Vial.Neb. INHALATION 2.5 mg Q2H PRN PRN Administration DYSPNEA/WHEEZING/SOB Albuterol/Ipratropium 3 ml 01/26/25 12:00 01/27/25 12:43 Ipratropium/Albuterol Sulfate 3 Ml Ampul.Neb INHALATION 3 ml Q6H.RT MUSA Administration Atorvastatin Calcium 40 mg 01/25/25 22:00 01/26/25 21:38 Atorvastatin Calcium 40 Mg Tablet GT 40 mg QHS MUSA Administration Buspirone HCl 10 mg 01/25/25 07:35 01/27/25 13:15 Buspirone 5 Mg Tablet GT 10 mg TID MUSA Administration Chlorhexidine Gluconate 1 each 01/26/25 10:00 01/26/25 23:54 Chlorhexidine Gluc 2% Cloth 1 Each Towelette TOPICAL 1 each DAILY MUSA Administration Chlorhexidine Gluconate 15 ml 01/26/25 10:00 01/27/25 09:29 Chlorhexidine 15 Ml PO 15 ml BID MUSA Administration Cholecalciferol 125 mcg 01/25/25 10:00 01/27/25 08:19 Cholecalciferol (Vit D3) 125 Mcg Capsule (5,000 Units) GT 125 mcg DAILY MUSA Administration Clopidogrel Bisulfate 75 mg 01/25/25 10:00 01/27/25 08:19 Clopidogrel Bisulfate 75 Mg Tablet GT 75 mg DAILY MUSA Administration Heparin Sodium (Porcine) 5,000 unit 01/16/25 14:00 01/27/25 13:14 Heparin Injection (Vial) 5,000 Unit/Ml Vial SC 5,000 unit Q8 MUSA Administration Hydroxyzine HCl 20 mg 01/25/25 12:00 01/27/25 13:14 Hydroxyzine 10 Mg Tablet GT 20 mg 4X/DAY MUSA Administration Pantoprazole Sodium 40 mg/ 100 mls @ 300 mls/hr 01/15/25 22:00 01/27/25 10:01 Sodium Chloride IV Infused Q12 MUSA Infusion Lactated Ringer's 1,000 mls @ 15 mls/hr 01/24/25 14:15 01/26/25 13:26 IV Not Given .Q48H MUSA Enteral Nutritional Formula 1,000 mls @ 45 mls/hr 01/25/25 10:00 01/27/25 11:07 Jevity 1.5 GT 45 mls/hr .[id number] MUSA Administration Fentanyl 100 mls @ 5 mls/hr 01/26/25 02:55 01/27/25 12:00 CONT INF 125 mcg/hr UD MUSA 12.5 mls/hr Titration Protocol 50 MCG/HR Dexmedetomidine HCl 400 mcg/ 100 mls @ 8.5 mls/hr 01/26/25 03:00 01/27/25 12:00 Sodium Chloride CONT INF 1 mcg/kg/hr .[id number] MUSA 17 mls/hr Titration Protocol 0.5 MCG/KG/HR Meropenem 500 mg/ Sodium 60 mls @ 100 mls/hr 01/26/25 14:00 01/27/25 09:01 Chloride IV Infused Q12 MUSA Infusion Norepinephrine Bitartrate 8 mg 250 mls @ 9.375 mls/hr 01/26/25 19:45 01/27/25 12:00 / Sodium Chloride CONT INF 4 mcg/min .[id number] MUSA 7.5 mls/hr Titration Protocol 5 MCG/MIN Metoprolol Tartrate 5 mg 01/24/25 13:00 01/25/25 02:24 Metoprolol Tartrate 5 Mg/5 Ml Vial IV 5 mg Q6 PRN Administration HR>100 Protocol Morphine Sulfate 4 mg 01/23/25 17:44 01/25/25 01:23 Morphine 4 Mg/Ml Syringe IV 4 mg Q3H PRN PRN Administration Pain Score 1-10 Ondansetron HCl 4 mg 01/11/25 16:03 Ondansetron 4 Mg/2 Ml Vial IV Q8H PRN PRN NAUSEA/VOMITING Oxycodone HCl 5 - 10 mg 01/25/25 07:49 01/25/25 11:38 Oxycodone 5 Mg Tablet GT 10 mg Q6H PRN PRN Administration Pain Score 1-10 Pramipexole Dihydrochloride 1.5 mg 01/25/25 22:00 01/26/25 21:38 Pramipexole Di-Hcl 0.5 Mg Tablet GT 1.5 mg QHS MUSA Administration Sodium Chloride 10 - 40 ml 01/11/25 16:11 01/26/25 05:00 0.9% Saline Lock 10 Ml Syringe IV 20 ml UD PRN Administration SALINE FLUSH Sodium Chloride 250 ml 01/19/25 15:07 01/19/25 17:34 0.9% Normal Saline 250 Ml Iv.Soln. IV 250 ml PRN PRN Administration IV flush Vancomycin HCl 125 mg 01/16/25 00:00 01/27/25 11:08 Vancomycin 125 Mg/5 Ml Susp Po.Syringe GT 125 mg Q6 MUSA Administration Lab / Micro Data 01/27/25 05:35 01/27/25 05:35 Labs: Laboratory Results - last 24 hr 01/27/25 05:35: WBC 6.5, RBC 2.74 L, Hgb 8.5 L, Hct 27.5 L, MCV 100.4 H, MCH 31.0, MCHC 30.9 L, RDW Std Deviation 56.7 H, RDW Coeff of Ha 16.2 H, Plt Count 228, MPV 11.3, Immature Gran % (Auto) 0.900, Neut % (Auto) 75.1 H, Lymph % (Auto) 10.4 L, [place] % (Auto) 8.3, Eos % (Auto) 4.5, Baso % (Auto) 0.8, Absolute Neuts (auto) 4.9, Absolute Lymphs (auto) 0.67 L, Nucleated RBC % 0.5, Sodium 145, Potassium 3.4, Chloride 107, Carbon Dioxide 25.0, Anion Gap 12, BUN 23 H, C reatinine 1.44 H, Estim Creat Clear Calc 24.88 L, Est GFR (MDRD) Non-Af 35 L, BUN/Creatinine Ratio 15.7, Glucose 213 H, Calcium 7.8 Micro: Microbiology 01/26/25 03:10 Sputum, Induced/Lukens Gram Stain - Final ABG Data ABG results: ABG 01/27/25 06:05 Specimen Type ART Sample Site R Radial pH 7.51 H Bicarbonate Actual 25.1 Total CO2 26 Base Excess 2 O2 Saturation 91 L O2 % 30.0 ABG pCO2 31.9 L ABG pO2 55 L Mj Test Positive Respiration Rate 14 O2 Delivery Device Adult Vent Vent Mode AC Tidal Volume 450.0 POC PEEP 5 Rhythm Strip Rhythm Strip: Sinus Rhythm Rate: 90 Ectopy: None Imaging Radiology Impression Chest X-Ray 01/27/25 05:00 IMPRESSION: 1. Support devices as described. 2. Stable bilateral perihilar infiltrates, which may represent edema or pneumonia. 3. Stable moderate right pleural effusion. Reading Location: [id number] Assessment and Plan . Assessment and plan: HPI Patient seen and examined Chart and data reviewed She is sedated, but awakens and responds Low dose NE for BP UOP still sluggish MV 6-7 LPM, PIP 22, SpO2 98% on 0.35 Lab, ABG, pCXR reviewed TF via PEG EXAM GEN NAD, sedated VS as above HEENT RAHUL NECK supple COR RRR CHEST decreased ABD soft, LUQ PEG EXT miinimal edema SKIN w/d HAROLDO NF, sedated ASSESSMENT 1. Acute respiratory failure requiring MV support - re-intubated 01/26 2. Suspected aspiration into airway 3. Achalasia 4. BERNARDO 5. Hypernatremia / hypokalemia 6. Recent CDAD 7. Recent UTI 8. Recent PEG placement 9. Elevated LFT 10. Anemia -MV support - likely SBT soon -sedation as needed -ABX -TF via PEG -free water -supplement K+ -VTE ppx -follow renal function closely -follow LFT - hold statin Critical Care Time: 50 minutes The entirety of this encounter was done via Telemedicine
--- NOTE | 2025-01-27 14:04 | PN.HOSP_ITS ---
Reason for Visit Chief Complaint Chief Complaint: Weakness, increased wrist pain, dark stools Subjective Subjective Patient was seen and examined today, she was under light sedation on the ventilator, she does nod her head to questions. She does not appear to be in any distress. Labs today's showed a slight decrease in her hemoglobin, white blood cell count remains normal creatinine was 1.44 which is declining slightly. Objective Data Objective Data Vital Signs: Vital Signs Temp Pulse Resp BP Pulse Ox O2 Del Method O2 Flow Rate 101.0 F H 73 14 102/40 L 95 Mechanical Ventilator 55 01/27/25 13:00 01/27/25 13:30 01/27/25 13:00 01/27/25 13:30 01/27/25 13:00 01/27/25 13:00 01/26/25 01:00 FiO2 35 01/27/25 13:00 Oxygen Flow Rate (L/min) 55 Oxygen Delivery Method Mechanical Ventilator Weight: 68 kg Body Mass Index (BMI) 27.3 Intake & Output: Intake and Output for Last 24 Hours 01/25/25 01/26/25 01/27/25 23:59 23:59 23:59 Intake Total 960.0 / 960.0 1816.15 / 2151.25 2245.64 / 2245.64 Output Total 2400 / 2450 375 / 375 Balance 960.0 / 710.0 -583.85 / -298.75 1870.64 / 1870.64 Lab / Micro Data 01/27/25 05:35 01/27/25 05:35 Labs: Laboratory Results - last 24 hr 01/27/25 05:35: WBC 6.5, RBC 2.74 L, Hgb 8.5 L, Hct 27.5 L, MCV 100.4 H, MCH 31.0, MCHC 30.9 L, RDW Std Deviation 56.7 H, RDW Coeff of Ha 16.2 H, Plt Count 228, MPV 11.3, Immature Gran % (Auto) 0.900, Neut % (Auto) 75.1 H, Lymph % (Auto) 10.4 L, [place] % (Auto) 8.3, Eos % (Auto) 4.5, Baso % (Auto) 0.8, Absolute Neuts (auto) 4.9, Absolute Lymphs (auto) 0.67 L, Nucleated RBC % 0.5, Sodium 145, Potassium 3.4, Chloride 107, Carbon Dioxide 25.0, Anion Gap 12, BUN 23 H, C reatinine 1.44 H, Estim Creat Clear Calc 24.88 L, Est GFR (MDRD) Non-Af 35 L, BUN/Creatinine Ratio 15.7, Glucose 213 H, Calcium 7.8 Micro: Microbiology 01/26/25 03:10 Sputum, Induced/Lukens Gram Stain - Final 01/15/25 18:27 Blood Culture (Wb) - Anticubital Left Blood Culture - Final No growth in 5 days. 01/15/25 17:45 Blood Culture (Wb) - Pic Blood Culture - Final No growth in 5 days. 01/15/25 17:58 Sputum, Induced/Lukens Gram Stain - Final 01/15/25 17:58 Sputum, Induced/Lukens Respiratory Culture - Final Yeast, not Sera albicans 01/11/25 22:14 Blood Culture (Wb) - Arm Left Blood Culture - Final No growth in 5 days. 01/11/25 14:15 Urine, Clean Catch Urine Culture - Final Klebsiella pneumoniae sp pneum 01/11/25 22:04 Nasal Secretion MRSA (PCR) - Final 01/11/25 23:00 Mucosa - Nasopharyngeal SARS-CoV-2, Influenza & RSV (PCR) - Final 01/11/25 11:05 Stool Stool Occult Blood (ROYAL) - Final Occult Blood Positive ABG Data ABG results: ABG 01/27/25 06:05 Specimen Type ART Sample Site R Radial pH 7.51 H Bicarbonate Actual 25.1 Total CO2 26 Base Excess 2 O2 Saturation 91 L O2 % 30.0 ABG pCO2 31.9 L ABG pO2 55 L Mj Test Positive Respiration Rate 14 O2 Delivery Device Adult Vent Vent Mode AC Tidal Volume 450.0 POC PEEP 5 Radiography Diagnostic Testing: Radiology Impression Chest X-Ray 01/27/25 05:00 IMPRESSION: 1. Support devices as described. 2. Stable bilateral perihilar infiltrates, which may represent edema or pneumonia. 3. Stable moderate right pleural effusion. Reading Location: [facility] Rhythm Strip Rhythm Strip: Sinus Rhythm Rate: 90 Ectopy: None Physical Exam Narrative Constitutional Narrative: Patient is sedated on the ventilator General Appearance: well kempt and well developed HEENT normocephalic, head/scalp atraumatic and moist oral mucous membranes Eyes conjunctivae normal Neck supple, no JVD and thyroid normal General: trachea midline Resp no retractions, no use of accessory muscles and clear to auscultation bilaterally Resp Narrative: Patient is not breathing above ventilator settings Auscultation: Negative for rales, rhonchi or wheezes Cardio regular rate, regular rhythm, S1 normal heart sound, S2 normal heart sound, no murmurs, no rub and no gallops GI normal to inspection, nondistended, normoactive bowel sounds, soft to palpation, non-tender and non-distended Extremity normal to inspection and no clubbing, cyanosis or edema Skin no rashes or lesions noted General Skin Exam: no breakdown Neuro Neuro Narrative: Patient is sedated and on the ventilator Psych Psych Narrative: Patient is sedated and on the ventilator Assessment & Plan Assessment/Plan (1) Sepsis: PLAN: Plan 1. Acute hypoxic respiratory failure-most likely from recurrent aspiration pneumonia-patient remains on meropenem and aerosol treatments at this time #2 achalasia-patient underwent esophageal dilatation and Botox injection, patient had a PEG tube placed #3 esophagitis-patient remains on PPI #4 hyperlipidemia-patient is on Lipitor-currently she is n.p.o., PEG tube is in place #5 C. difficile colitis-patient remains on liquid vancomycin-currently she is n.p.o. #6 septic shock-patient had completed a course of antibiotics for septic shock, she is now on a course of antibiotics for presumed aspiration pneumonia Total clinical time spent by myself addressing the patient's medical issues, reviewing all of her data, and collaborating with patient's care team: 35 minutes Charges/Coding Visit Charges Inpatient E&M: 80551 Subs Hosp L2
[2025-01-27] MEDS: Potassium Chloride Oral Soln 20 MEQ/15 ML UDC 40 MEQ GT (17:01)
[2025-01-27] MEDS: Pantoprazole Sodium 40 MG in 0.9% Normal Saline (100mL MB+) 100 ML 300 MG IV (21:09)
[2025-01-27] MEDS: CHLORHEXIDINE GLUC 2% CLOTH 1 EACH TOWELETTE TOPICAL (21:09)
[2025-01-27] MEDS: Norepinephrine 8 MG in 0.9% Normal Saline (250mL Bag) 242 ML 9.4 MG CONT INF (21:15)
[2025-01-27] MEDS: 0.9% Saline Lock 10 ML Syringe IV (21:15)
[2025-01-28] VITALS (33 sets, daily range): BP systolic 89–153; BP diastolic 31–86; PULSE 65–133; RESP 13–40; TEMP 37.7–38.7; O2SAT 90–100; BMI 28.3
[2025-01-28] MEDS: Vancomycin 125 MG/5 ML Susp PO.SYRINGE GT ×3 (00:23→11:44)
[2025-01-28] MEDS: dexMEDEtomidine 400 MCG in 0.9% Normal Saline (100mL Bag) 96 ML 17 MCG CONT INF (02:50)
[2025-01-28] MEDS: fentaNYL drip 100 ML 12.5 MCG CONT INF (03:00)
[2025-01-28] MEDS: 0.9% Saline Lock 10 ML Syringe IV (03:13)
[2025-01-28 03:29] LABS: Hematocrit 27.7 % (37-47); Hemoglobin 8.5 g/dL (12.0-15.0); Immature Granulocytes Count 0.080 X10^3/uL (0.0-0.0); Mean Corp Hgb Conc 30.7 g/dL (32-36); Mean Corpuscular Volume 101.5 fL (81-99); Mean Platelet Vol. 11.7 fl (6.2-12.0); NRBC Flagged by Analyzer 0.5 % (0-5); Platelet Count 215 K/mm3 (150-450); RBC Distribution Width CV 16.7 % (11.6-14.6); RBC Distribution Width SD 58.8 fl (35.1-43.9); Red Blood Count 2.73 M/mm3 (4.2-5.4); White Blood Count 6.1 K/mm3 (4.4-11.0)
[2025-01-28 05:24] LABS: Anion Gap 11 (5-15); BUN 24 mg/dL (4-19); BUN/Creat Ratio 18.3 RATIO (10-20); Calcium,Total 7.1 mg/dL (7.6-11.0); Carbon Dioxide 23.9 mmol/L (21.0-32.0); Chloride 108 mmol/L (98-108); Estimated Creatinine Clearance 27.50 ml/min (50-250); Glucose 186 mg/dL (70-99); Potassium 4.4 mmol/L (3.3-5.1)
[2025-01-28] MEDS: Heparin Injection (Vial) 5,000 UNIT/ML VIAL 5000 UNIT SC ×2 (06:38→13:48)
--- NOTE | 2025-01-28 06:44 | PCM.PN.INT ---
Assessment & Plan Assessment/Plan (1) Sepsis: PLAN: Plan RECOMMENDATIONS: 1. Proceed with extubation per patient and family request. 2. CODE STATUS to be updated to DNR CCA without intubation for extubation purposes. 3. If the patient does not do well clinically following extubation, will initiate comfort care measures. 4. Administer IV Lasix x 1. 5. Nutritional support via PEG tube. 6. Continue bronchodilator therapy. 7. Continue appropriate DVT prophylaxis. IMPRESSIONS: 1. Septic shock Resolved. Clinical concern for underlying urinary tract source of infection +/- aspiration pneumonia. The patient ultimately developed fluid refractory hypotension, which required vasopressor support. The patient then required reintubation on January 26 and since then has been on low-dose Levophed, which is likely the consequence of the sedative medications being employed to keep her comfortable while on the ventilator. In addition, antibiotics for restarted, pending repeat culture workup. 2. Acute hypoxemic respiratory failure The patient has a known history of achalasia and was taken for endoscopic evaluation on January 15, at which time, the patient decompensated from a respiratory perspective and was intubated. She was noted to have significant food in the esophagus, with concern for an acute aspiration event leading to her respiratory decompensation. With supportive care, including antimicrobials and invasive mechanical ventilatory support, the patient was able to be extubated on January 21. However, the patient then went on to develop worsening respiratory failure on January 26 and was subsequently reintubated. She was restarted on antibiotics, pending repeat culture workup. However, following my discussion with the patient this morning and her family, they are requesting to proceed with extubation, with initiation of comfort care measures, if the patient does not do well clinically following endotracheal tube removal. 3. Acute kidney injury Resolved. Likely prerenal in etiology. Creatinine has stabilized at this time. Continue to monitor urine output. No current indication for renal replacement therapy. 4. History of achalasia The patient is status post endoscopic evaluation on January 15, during which time, the patient was noted to have a significant amount of food in the entire esophagus. A severe Schatzki ring was noted which was dilated. Botox was also injected. Ultimately, the patient underwent PEG tube placement on January 24. Continue current medical management per gastroenterology recommendations. 5. Recent left wrist fracture/recent C. difficile colitis on vancomycin/anemia/peripheral arterial disease/hypothyroidism Complicates care, management, recovery and prognosis. Continue supportive measures as noted above. CODE STATUS: DNR CCA without reintubation. Again, if the patient does not do well clinically following extubation, we will plan to initiate comfort care measures per patient and family request. TIME: 37 minutes of critical care time, independent of procedures, was spent addressing the patient's septic shock, acute hypoxemic respiratory failure, review of all data and collaboration with care team. Subjective Subjective The patient was seen and examined at the bedside this morning. Events from the last 24 hours have been reviewed. Due to impending respiratory failure, the patient was reintubated during the machine stemmer on January 26. She remains on assist-control mode mechanical ventilation with an FiO2 requirement of 30% and PEEP of 5. The patient is documented to be overall net +9.5 L for the hospitalization. White blood cell count is normal. Hemoglobin is stable at 8.5 g/dL. Creatinine is stable at 1.32. The patient is alert and interactive this morning. Upon family arrival to the bedside this morning, the patient was able to communicate her wishes to have the endotracheal tube removed immediately, regardless of the outcome. The family was all in agreement that the patient's wishes should be honored. Accordingly, I did discuss with the patient and her family the idea that she would be transition to DNR Comfort Care arrest without intubation for extubation purposes. If she continued to decompensate after extubation, we would then transition her to comfort care measures. Objective Data Objective Data The patient's most recent lab work, culture data and imaging studies have all been personally reviewed. Surface echocardiogram demonstrated mild concentric LVH with stage I diastolic dysfunction. Urine culture was positive for Klebsiella pneumonia. Repeat sputum culture is currently pending. Vital Signs: Vital Signs Temp Pulse Resp BP Pulse Ox O2 Del Method O2 Flow Rate 100.5 F H 67 14 111/41 L 95 Mechanical Ventilator 01/28/25 06:00 01/28/25 06:05 01/28/25 06:05 01/28/25 06:00 01/28/25 06:05 01/28/25 06:00 01/28/25 03:00 FiO2 30 01/28/25 06:05 Oxygen Flow Rate (L/min) 30 Oxygen Delivery Method Mechanical Ventilator Weight: 154 lb 1.65 oz Body Mass Index (BMI) 28.3 Intake & Output: Intake and Output for Last 24 Hours 07/07/1101/27/25 01/28/25 23:59 23:59 23:59 Intake Total 1816.15 / 2151.25 3630.49 / 3969.39 826.63 / 826.63 Output Total 2400 / 2450 375 / 600 525 / 525 Balance -583.85 / -298.75 3255.49 / 3369.39 301.63 / 301.63 Lab / Micro Data Attestation: I reviewed the patient's lab results. 01/28/25 03:10 01/28/25 03:10 Labs: Laboratory Results - last 24 hr 01/27/25 05:35: Sodium 145, Potassium 3.4, Chloride 107, Carbon Dioxide 25.0, Anion Gap 12, BUN 23 H, Creatinine 1.44 H, Estim Creat Clear Calc 24.88 L, Est GFR (MDRD) Non-Af 35 L, BUN/Creatinine Ratio 15.7, Glucose 213 H, Calcium 7.8 01/28/25 03:10: WBC 6.1, RBC 2.73 L, Hgb 8.5 L, Hct 27.7 L, MCV 101.5 H, MCH 31.1, MCHC 30.7 L, RDW Std Deviation 58.8 H, RDW Coeff of Ha 16.7 H, Plt Count 215, MPV 11.7, Immature Gran % (Auto) 1.300 H, Neut % (Auto) 66.2, Lymph % (Auto) 17.3 L, [place] % (Auto) 9.5, Eos % (Auto) 4.9, Baso % (Auto) 0.8, Absolute Neuts (auto) 4.1, Absolute Lymphs (auto) 1.06, Nucleated RBC % 0.5, Sodium 143, Potassium 4.4, Chloride 108, Carbon Dioxide 23.9, Anion Gap 11, BUN 24 H, Creatinine 1.32 H, Estim Creat Clear Calc 27.50 L, Est GFR (MDRD) Non-Af 39 L, BUN/Creatinine Ratio 18.3, Glucose 186 H, Calcium 7.1 L Micro: Microbiology 01/26/25 03:10 Sputum, Induced/Lukens Gram Stain - Final 01/15/25 18:27 Blood Culture (Wb) - Anticubital Left Blood Culture - Final No growth in 5 days. 01/15/25 17:45 Blood Culture (Wb) - Pic Blood Culture - Final No growth in 5 days. 01/15/25 17:58 Sputum, Induced/Lukens Gram Stain - Final 01/15/25 17:58 Sputum, Induced/Lukens Respiratory Culture - Final Yeast, not Sera albicans 01/11/25 22:14 Blood Culture (Wb) - Arm Left Blood Culture - Final No growth in 5 days. 01/11/25 14:15 Urine, Clean Catch Urine Culture - Final Klebsiella pneumoniae sp pneum 01/11/25 22:04 Nasal Secretion MRSA (PCR) - Final 01/11/25 23:00 Mucosa - Nasopharyngeal SARS-CoV-2, Influenza & RSV (PCR) - Final 01/11/25 11:05 Stool Stool Occult Blood (ROYAL) - Final Occult Blood Positive ABG Data ABG results: ABG 01/23/25 06:11 Specimen Type ART Sample Site R Radial pH 7.43 Bicarbonate Actual 28.3 H Total CO2 30 Base Excess 4 H O2 Saturation 89 L O2 % 6.0 ABG pCO2 42.7 ABG pO2 56 L Mj Test N/A O2 Delivery Device Cannula Vent Mode Not entered Radiography Diagnostic Testing: Radiology Impression Chest X-Ray 01/21/25 05:30 IMPRESSION: Improved pulmonary venous congestion changes. Regressed bilateral perihilar and lower lung zones volume overloaded changes versus infiltrates. Decreased bilateral pleural effusion. Reading Location: [place] [address] Rhythm Strip Rhythm Strip: Sinus Rhythm Rate: 90 Ectopy: None Physical Exam Const Constitutional Narrative: Currently intubated, sedated and mechanically ventilated. General Appearance: patient mechanically ventilated HEENT normocephalic and moist oral mucous membranes HEENT Narrative: Facial ecchymoses noted Mouth: endotracheal tube in place Eyes EOMs intact bilaterally, conjunctivae normal and no scleral icterus Neck supple General: trachea midline Chest inspection of chest normal Resp Auscultation: diminished lung sounds; Negative for rales, rhonchi or wheezes Cardio regular rate, regular rhythm, S1 normal heart sound and S2 normal heart sound GI normal to inspection, nondistended, normoactive bowel sounds Inspection: GI tube present Extremity Extremity Narrative: Scattered ecchymoses on extremities General Extremity: edema; Negative for clubbing Neuro Sensorium / Orientation: sedated on vent Charges/Coding Procedures Hospitalists Procedures: 05934 Critical Care 1st Hr
--- NOTE | 2025-01-28 07:39 | PCM.PN.HOSP ---
Reason for Visit Chief Complaint: Weakness, increased wrist pain, dark stools Subjective Subjective Patient was seen and examined today, I talked extensively with pulmonary medicine about her care and I also talked with daughter. Her daughter will talk with the patient's son and try to decide how to go forward, pulmonary states that they will not extubate the patient unless there is no reintubation in case she needs it. I also talked with the ENT about possibly performing a trach, they were not sure they are scheduled this week but wanted me to call them back when the family decides what course to take. Patient's vent settings are minimal at this time. Objective Data Objective Data Vital Signs: Vital Signs Temp Pulse Resp BP Pulse Ox O2 Del Method O2 Flow Rate 100.5 F H 68 14 111/41 L 95 Mechanical Ventilator 30 01/28/25 06:00 01/28/25 07:19 01/28/25 07:19 01/28/25 06:00 01/28/25 07:19 01/28/25 07:36 01/28/25 03:00 FiO2 30 01/28/25 07:36 Oxygen Flow Rate (L/min) 30 Oxygen Delivery Method Mechanical Ventilator Weight: 69.9 kg Body Mass Index (BMI) 28.3 Intake & Output: Intake and Output for Last 24 Hours 01/26/25 01/27/25 01/28/25 23:59 23:59 23:59 Intake Total 1816.15 / 2151.25 3630.49 / 3969.39 1076.63 / 1076.63 Output Total 2400 / 2450 375 / 600 525 / 525 Balance -583.85 / -298.75 3255.49 / 3369.39 551.63 / 551.63 Lab / Micro Data 01/28/25 03:10 01/28/25 03:10 Labs: Laboratory Results - last 24 hr 01/28/25 03:10: WBC 6.1, RBC 2.73 L, Hgb 8.5 L, Hct 27.7 L, MCV 101.5 H, MCH 31.1, MCHC 30.7 L, RDW Std Deviation 58.8 H, RDW Coeff of Ha 16.7 H, Plt Count 215, MPV 11.7, Immature Gran % (Auto) 1.300 H, Neut % (Auto) 66.2, Lymph % (Auto) 17.3 L, [place] % (Auto) 9.5, Eos % (Auto) 4.9, Baso % (Auto) 0.8, Absolute Neuts (auto) 4.1, Absolute Lymphs (auto) 1.06, Nucleated RBC % 0.5, Sodium 143, Potassium 4.4, Chloride 108, Carbon Dioxide 23.9, Anion Gap 11, BUN 24 H, Creatinine 1.32 H, Estim Creat Clear Calc 27.50 L, Est GFR (MDRD) Non-Af 39 L, BUN/Creatinine Ratio 18.3, Glucose 186 H, Calcium 7.1 L Micro: Microbiology 01/26/25 03:10 Sputum, Induced/Lukens Gram Stain - Final 01/15/25 18:27 Blood Culture (Wb) - Anticubital Left Blood Culture - Final No growth in 5 days. 01/15/25 17:45 Blood Culture (Wb) - Pic Blood Culture - Final No growth in 5 days. 01/15/25 17:58 Sputum, Induced/Lukens Gram Stain - Final 01/15/25 17:58 Sputum, Induced/Lukens Respiratory Culture - Final Yeast, not Sera albicans 01/11/25 22:14 Blood Culture (Wb) - Arm Left Blood Culture - Final No growth in 5 days. 01/11/25 14:15 Urine, Clean Catch Urine Culture - Final Klebsiella pneumoniae sp pneum 01/11/25 22:04 Nasal Secretion MRSA (PCR) - Final 01/11/25 23:00 Mucosa - Nasopharyngeal SARS-CoV-2, Influenza & RSV (PCR) - Final 01/11/25 11:05 Stool Stool Occult Blood (ROYAL) - Final Occult Blood Positive Rhythm Strip Rhythm Strip: Sinus Rhythm Rate: 90 Ectopy: None Physical Exam Narrative Patient is sedated on the ventilator General Appearance: well kempt and well developed HEENT normocephalic, head/scalp atraumatic and moist oral mucous membranes Eyes conjunctivae normal Neck supple, no JVD and thyroid normal General: trachea midline Resp no retractions, no use of accessory muscles and clear to auscultation bilaterally Resp Narrative: Patient is not breathing above ventilator settings Auscultation: Negative for rales, rhonchi or wheezes Cardio regular rate, regular rhythm, S1 normal heart sound, S2 normal heart sound, no murmurs, no rub and no gallops GI normal to inspection, nondistended, normoactive bowel sounds, soft to palpation, non-tender and non-distended Extremity normal to inspection and no clubbing, cyanosis or edema Skin no rashes or lesions noted General Skin Exam: no breakdown Neuro Neuro Narrative: Patient is sedated and on the ventilator Psych Psych Narrative: Patient is sedated and on the ventilator Assessment & Plan Assessment/Plan (1) Sepsis: PLAN: Plan 1. Acute hypoxic respiratory failure-most likely from recurrent aspiration pneumonia-patient remains on meropenem and aerosol treatments at this time, daughter will have a discussion with her sibling regarding whether to trach the patient or just simply extubate her and not reintubate her. #2 achalasia-patient underwent esophageal dilatation and Botox injection, patient had a PEG tube placed #3 esophagitis-patient remains on PPI #4 hyperlipidemia-patient is on Lipitor-currently she is n.p.o., PEG tube is in place #5 C. difficile colitis-patient remains on liquid vancomycin-currently she is n.p.o. #6 septic shock-patient had completed a course of antibiotics for septic shock, she is now on a course of antibiotics for presumed aspiration pneumonia Total clinical time spent by myself addressing the patient's medical issues, reviewing all of her data, and collaborating with patient's care team: 35 minutes Charges/Coding Visit Charges Inpatient E&M: 68936 Subs Hosp L2
[2025-01-28 08:44] LABS: Pro- Brain NATRIURETIC PEPTIDE 17936 pg/mL (<=1800); Procalcitonin 0.84 ng/mL (<=0.10)
[2025-01-28] MEDS: Cholecalciferol (Vit D3) 125 MCG CAPSULE (5,000 UNITS) GT (08:47)
[2025-01-28] MEDS: Pantoprazole Sodium 40 MG in 0.9% Normal Saline (100mL MB+) 100 ML 300 MG IV (08:48)
[2025-01-28] MEDS: Chlorhexidine 15 ML PO (08:49)
[2025-01-28] MEDS: dexMEDEtomidine 400 MCG in 0.9% Normal Saline (100mL Bag) 96 ML 17.5 MCG CONT INF (08:51)
--- NOTE | 2025-01-28 09:15 | NURSING ---
Dr Delvalle at bedside speaking with patients daughter and son. Patient is awake and attempting to communicate around endotracheal tube. Patient indicated pulling of the ETT and shook head yes when asked if she wanted the tube removed even if she wasn't ready and might not do well. Dr delvalle discussed options and code status with all present. Patient and family all agreed to remove the ETT immediately and change patients code status to DNR-DNI. Verbal order from Dr Delvalle to extubate patient. Respiratory therapy was present on the unit so preceded to extubate patient at 0920. Family expressed interest in speaking with hospice sales training representative to discuss their services. ABBEY Cortes, speaking with hospice about the referral.
--- NOTE | 2025-01-28 09:36 | CPS ---
Per Dr Delvalle, family is changing Code Status and extubating pt
[2025-01-28] MEDS: Meropenem 500 MG in 0.9% Normal Saline (50mL MB+) 50 ML 100 MG IV (10:01)
--- NOTE | 2025-01-28 10:18 | CASEMGMT ---
Addendum entered by Charlene Cabrera 01/28/25 11:37: Social Work SW spoke w/Milagros from hospice, hospice will be here to meet w/pt and family from 5:30-6pm today. SW updated RN. RON Mojica Original Note: Social Work SW spoke w/RN and physician, pt is being extubated today. Family would like to speak w/hospice about options. SW spoke w/daughter Jesika in the room, she confirmed this, she is the main contact for pt. SW called [facility], faxed referral, they are to call daughter and let SW know the time of the meeting. RON Mojica
[2025-01-28] MEDS: Albuterol 2.5 MG/3 ML VIAL.NEB. INHALATION (10:43)
[2025-01-28] MEDS: Jevity 1.5 1,000 ML 45 ML GT (10:45)
[2025-01-28] MEDS: Lorazepam 2 MG/ML WCH Syringe 0.5 MG IV (11:44)
--- NOTE | 2025-01-28 14:46 | CHAPLAIN ---
Type of Pastoral Visit ___ Initial Visit _x__ Follow-up Visit ___ On-call Visit ___ General Patient Visit ___ Spiritual Assessment ___ Family Conference ___ Bereavement ___ Rapid Response ___ Code Blue ___ Other (describe below) Pastoral Care Referral From ___ Patient _x__ Family ___ Nurse ___ Physician ___ [employer] Boat Captain ___ Dice Spotter ___ Other (describe below) Sacrament/Intervention _x__ Active listening ___ Anointing ___ Confucianist ___ Bereavement ___ Communion ___ Jackie exploration ___ ___ Life review _x__ Prayer ___ Reconciliation ___ Sacrament of Sick _x__ Supportive presence ___ Wedding ___ Other (describe below) Pastoral Comments patient requested that ventilator to be removed and it was earlier today; daughter and son are with her in the room; pt is able to open eyes and nod head but has obvious struggles to breathe; pt acknowledges presence of the varnisher apprentice but cannot answer questions; her children give more information and acknowledge that the end-of-life situation is here; both children appear to be on the same page and willing to accept mother's decision for removal of life supporting measures; daughter asks for prayers and expresses thanks for the visits and time given
--- NOTE | 2025-01-28 18:42 | DS.PCM_ITS ---
Providers Date of Admission: 01/11/25 Date of Discharge: 01/28/25 Primary Care Physician: Dr. Viktoriya Lamb MD Consultations 01/11/25 16:03 Consult: Librarian [facility] Library / Pulmonary Medicine Routine Consulting Provider: Intensivists/Pulmonary Med Reason for Consult: SEPTIC SHOCK EMERGENT Consult: No Notified: Yes Date Notified: 01/11/25 Time Notified: 15:14 Method of Notification: Answering Service Comments:: Entered into [facility] per Lukasz 01/13/25 07:28 Consult: Orthopedics Routine Consulting Provider: Guillermo Mcmanus Reason for Consult: wrist fracture, cast concern EMERGENT Consult: No Notified: Yes Date Notified: 01/13/25 Time Notified: 08:45 Method of Notification: Verbal 01/14/25 18:30 Consult: Gastroenterology Routine Consulting Provider: Nancie Gastroenterology Reason for Consult: Need for EGD-Botox EMERGENT Consult: No Notified: Yes Date Notified: 01/14/25 Time Notified: 18:30 Method of Notification: Verbal Reason For Visit: SEPSIS, UGIB, PNEUMONIA Diagnosis Discharge Diagnosis (1) Sepsis: Status: Acute Code(s): A41.9 - Sepsis, unspecified organism Plan 1. Acute hypoxic respiratory failure-most likely from recurrent aspiration pneumonia-patient remains on meropenem and aerosol treatments at this time, daughter will have a discussion with her sibling regarding whether to trach the patient or just simply extubate her and not reintubate her. #2 achalasia-patient underwent esophageal dilatation and Botox injection, patient had a PEG tube placed #3 esophagitis-patient remains on PPI #4 hyperlipidemia-patient is on Lipitor-currently she is n.p.o., PEG tube is in place #5 C. difficile colitis-patient remains on liquid vancomycin-currently she is n.p.o. #6 septic shock-patient had completed a course of antibiotics for septic shock, she is now on a course of antibiotics for presumed aspiration pneumonia Total clinical time spent by myself addressing the patient's medical issues, reviewing all of her data, and collaborating with patient's care team: 35 minutes Medications at Discharge Home Medications atorvastatin 40 mg tablet 40 mg PO QHS cholesterol 02/22/16 clopidogrel 75 mg tablet 75 mg PO DAILY BLOOD THINNER 02/22/16 albuterol sulfate 90 mcg/actuation aerosol inhaler 2 puff inhalation Q4H PRN shortness of breath or wheezing 03/16/18 pramipexole 1.5 mg tablet 1.5 mg PO QHS restless leg syndrome 08/18/23 polysaccharide iron complex 150 mg iron capsule (Ferrex) 150 mg PO DAILY supplement 30 days #30 caps 10/12/23 acetaminophen 500 mg tablet 1,000 mg PO Q6H PRN pain 02/14/24 arformoterol 15 mcg/2 mL solution for nebulization 15 mcg inhalation BID breathing 02/14/24 spironolactone 25 mg tablet 25 mg PO DAILY diuretic 02/14/24 cholecalciferol (vitamin D3) 125 mcg (5,000 unit) capsule 125 mcg PO DAILY 30 days #30 caps 06/08/24 furosemide 40 mg tablet 40 mg PO BID FLUID RETENTION 09/24/24 pantoprazole 40 mg tablet,delayed release 40 mg PO BID reflux 09/24/24 budesonide 0.5 mg/2 mL suspension for nebulization 0.5 mg inhalation BID breathing 11/28/24 carvedilol 25 mg tablet 25 mg PO BID 11/28/24 magnesium oxide 400 mg PO DAILY 11/28/24 potassium chloride 20 mEq/15 mL oral liquid 20 meq PO DAILY 11/28/24 duloxetine 60 mg capsule,delayed release 60 mg PO DAILY 12/27/24 oxycodone 5 mg tablet 5 mg PO Q6H PRN pain 3 days #12 tabs 01/07/25 Hospital Course Operations None Procedures EGD, Peg tube placement and PICC line placement Summary of Care Provided Minutes Spent on Discharge: 33 Hospital Course: Is a 9-year-old white female presented to the emergency room at [facility] with complaints of generalized weakness, she also complained of having black tarry stools with diffuse abdominal cramping, she denied any nausea and vomiting. Patient had a colonoscopy several weeks prior and was diagnosed with ischemic colitis. Labs obtained which showed a low white blood cell count of 2.7, hemoglobin was 9.3, and chemistry profile was remarkable for creatinine of 3.03 and a BUN of 74. Patient's troponin was elevated at 64 with a repeat troponin elevated at 45. Patient's lactic acid was 3.2. Chest x-ray was performed there was noted to be subtle airspace disease in the right lung base indicating either atelectasis or pneumonia. Patient's blood pressure was noted to be low with systolic readings in the 70s, patient was given IV antibiotics for community-acquired pneumonia and a PICC line was ordered for possible pressor support in the ICU. Patient was admitted for septic shock to the ICU secondary to pneumonia and UTI due to the fact the patient recently had a stool test that was positive for C. difficile and the patient was on oral vancomycin, this was continued in the ICU. Patient was seen by telemetry pulmonology and GI, echocardiogram was obtained which showed normal LV function, pressors were maintained to elevate the patient's blood pressure, due to her recent wrist fracture causing the patient discomfort, she was seen in consultation by orthopedic surgery. Patient was seen by speech therapy and had symptoms of dysphagia with both liquids and solids, due to her past history of achalasia she was seen in consultation by gastroenterology, patient decompensated from a respiratory perspective and was intubated, gastroenterology performed an EGD, there was food found in the entire esophagus which was removed, there was noted to be mildly severe esophagitis and a severe Schatzki ring was found and dilated. The distal esophagus was also successfully injected with botulinum toxin. Ultimately patient was extubated. Despite this intervention from gastroenterology, patient continued to have difficulty swallowing and discussions were carried out with the patient and she agreed to a PEG tube which was inserted without incident. Patient's condition appeared to stabilize, she was moved to PCU but had an episode of increased respiratory distress and it was necessary to intubate the patient. Discussions were had with the patient's family concerning extubating the patient when she was medically stable and the patient indicated that she did not want the ET tube replaced if she failed extubation. The patient and her family also requested hospice see the patient and hospice excepted the patient into the inpatient hospice program. On 01/28/2025, patient was seen and examined: On examination she appeared her stated age, she does not appear to be in any distress. Vital signs as documented. Skin warm and dry and without overt rashes. Neck without JVD, thyroid appears normal, trachea is midline, neck is supple. Lungs clear, normal air movement was noted. Heart exam notable for regular rhythm, normal sounds and absence of murmurs, rubs or gallops. Abdomen unremarkable and without evidence of organomegaly, masses, or abdominal aortic enlargement, bowel sounds are present in all 4 quadrants, no abdominal tenderness was noted. Extremities nonedematous, no cyanosis was noted, no clubbing was noted. Neuro: Cranial nerves II through XII are grossly intact, no focal motor deficits were noted, sensation to light touch and pinprick is intact, motor exam 5/5 throughout. Psych: Patient is alert and oriented x3, she does not appear anxious or depressed, she does not appear agitated. Patient was discharged to the inpatient hospice facility in [facility] on 01/28/2025 in stable condition Weight / BMI Weight Weight: 69.9 kg Body Mass Index (BMI) 28.3 ABG / Lab / Microbiology Data 01/28/25 03:10 01/28/25 03:10 Laboratory: Laboratory Results - last 24 hr 01/28/25 03:10: WBC 6.1, RBC 2.73 L, Hgb 8.5 L, Hct 27.7 L, MCV 101.5 H, MCH 31.1, MCHC 30.7 L, RDW Std Deviation 58.8 H, RDW Coeff of Ha 16.7 H, Plt Count 215, MPV 11.7, Immature Gran % (Auto) 1.300 H, Neut % (Auto) 66.2, Lymph % (Auto) 17.3 L, Irwin % (Auto) 9.5, Eos % (Auto) 4.9, Baso % (Auto) 0.8, Absolute Neuts (auto) 4.1, Absolute Lymphs (auto) 1.06, Nucleated RBC % 0.5, Sodium 143, Potassium 4.4, Chloride 108, Carbon Dioxide 23.9, Anion Gap 11, BUN 24 H, C reatinine 1.32 H, Estim Creat Clear Calc 27.50 L, Est GFR (MDRD) Non-Af 39 L, BUN/Creatinine Ratio 18.3, Glucose 186 H, Calcium 7.1 L, [place] [address] H, Procalcitonin 0.84 H Microbiology: Microbiology 01/26/25 03:10 Sputum, Induced/Lukens Gram Stain - Final 01/26/25 03:10 Sputum, Induced/Lukens Respiratory Culture - Final Yeast, not Sera albicans 01/15/25 18:27 Blood Culture (Wb) - Anticubital Left Blood Culture - Final No growth in 5 days. 01/15/25 17:45 Blood Culture (Wb) - Pic Blood Culture - Final No growth in 5 days. 01/15/25 17:58 Sputum, Induced/Lukens Gram Stain - Final 01/15/25 17:58 Sputum, Induced/Lukens Respiratory Culture - Final Yeast, not Sera albicans 01/11/25 22:14 Blood Culture (Wb) - Arm Left Blood Culture - Final No growth in 5 days. 01/11/25 14:15 Urine, Clean Catch Urine Culture - Final Klebsiella pneumoniae sp pneum 01/11/25 22:04 Nasal Secretion MRSA (PCR) - Final 01/11/25 23:00 Mucosa - Nasopharyngeal SARS-CoV-2, Influenza & RSV (PCR) - Final 01/11/25 11:05 Stool Stool Occult Blood (ROYAL) - Final Occult Blood Positive D/C Instructions DC O2, CPAP, BIPAP Needs Home O2 Discharge instructions: No Meaningful Use Info Meaningful Use Meaningful Use Diagnoses (Choose all that apply): None applicable Discharge Plan Admission Admit Date/Time: 01/11/25 15:05 Attending Provider: Chuck Reynolds Primary Care Provider: Viktoriya Lamb Consulting Providers: Chuck Reynolds; Jorje Ponce; Mickey Alva; Yonis Benavides; Walter Sheehan; Shamir Delvalle; Jorje Caballero; Veto Allen; Oren Jones; Sara Salas; Praveen English; Stephan Hardwick; Tobias Sanchez; Ade Moreno; Dominic Richards; Ria Olguin; Sam Trotter; Navarro Tineo; Curtis Burrell; Jono Ibrahim; Spencer Rangel; Tavo Carreno; Fernando Hester; Hay Tim; Guanakito Cardoso; Guillermo Mcmanus Discharge Orders/Prescriptions Prescriptions: No Action acetaminophen 500 mg tablet 1,000 mg PO Q6H PRN (Reason: pain) arformoterol 15 mcg/2 mL solution for nebulization 15 mcg inhalation BID spironolactone 25 mg tablet 25 mg PO DAILY atorvastatin 40 MG tablet 40 mg PO QHS clopidogrel 75 MG tablet 75 mg PO DAILY albuterol sulfate 90 mcg/actuation HFA aerosol inhaler 2 puff INHALATION Q4H PRN (Reason: shortness of breath or wheezing) pramipexole 1.5 mg tablet 1.5 mg PO QHS cholecalciferol (vitamin D3) 125 mcg (5,000 unit) Capsule 125 mcg PO DAILY 30 Days Qty: 30 0RF carvedilol 25 mg tablet 25 mg PO BID Patient Comments: TAKE WITH MEALS magnesium oxide 400 mg magnesium capsule 400 mg PO DAILY potassium chloride 20 mEq/15 mL liquid 20 meq PO DAILY budesonide 0.5 mg/2 mL suspension for nebulization 0.5 mg inhalation BID duloxetine 60 mg capsule,delayed release(DR/EC) 60 mg PO DAILY oxycodone 5 mg tablet 5 mg PO Q6H PRN (Reason: pain) 3 Days Qty: 12 0RF polysaccharide iron complex [Ferrex 150] 150 mg iron Capsule 150 mg PO DAILY 30 Days Qty: 30 0RF furosemide 40 mg tablet 40 mg PO BID pantoprazole 40 mg Tablet,Delayed Release (Dr/Ec) 40 mg PO BID Referrals / Follow Up: Viktoriya Lamb MD [Primary Care Provider] - Disposition Disposition (needs filled in before D/C Order can be placed): Hospice in Medical Facility Charges/Coding Visit Charges Inpatient E&M: 52380 Disch Hosp >30min
--- NOTE | 2025-01-28 19:53 | NURSING ---
Transport here to take pt to Inpatient hospice center. Pt and son deny any further needs at this time, Telemetry removed. PIV removed with catheter intact, clean dry dressing applied. pt tolerated well. Assisted transport to put pt on strecher. Son states they have all of her belongings.
== END 2025-01-28 19:55 | disposition hospice, inpatient (51) | DRG 870 ==
LOC: ED 14:07 → ICU 01-12 08:34 → PCU 01-25 16:04 → ICU 01-26 03:04
PROVIDERS: Family Medicine; Hospitalist; Internal Medicine; Internal Medicine Critical Care Medicine; Internal Medicine Gastroenterology; Admitting Provider Internal Medicine; Emergency Provider Emergency Medicine; PCP Internal Medicine; Referring Provider Internal Medicine; Visit Provider Internal Medicine
PROC: 0DJ08ZZ Inspection of Upper Intestinal Tract, Via Natural or Artificial Opening Endoscopic (ICD-10-PCS; CPT 43235; principal; 2025-01-15 11:55)
DX: A41.59 Other Gram-negative sepsis (principal); N17.0 Acute kidney failure with tubular necrosis; J95.821 Acute postprocedural respiratory failure; R65.21 Severe sepsis with septic shock; J69.0 Pneumonitis due to inhalation of food and vomit; I50.33 Acute on chronic diastolic (congestive) heart failure; J15.4 Pneumonia due to other streptococci; E87.20 Acidosis, unspecified; A04.71 Enterocolitis due to Clostridium difficile, recurrent; J44.0 Chronic obstructive pulmonary disease with (acute) lower respiratory infection; I13.0 Hypertensive heart and chronic kidney disease with heart failure and stage 1 through stage 4 chronic kidney disease, or unspecified chronic kidney disease; I24.89 Other forms of acute ischemic heart disease; E87.0 Hyperosmolality and hypernatremia; N30.00 Acute cystitis without hematuria; K22.10 Ulcer of esophagus without bleeding; D63.1 Anemia in chronic kidney disease; K22.0 Achalasia of cardia; E11.51 Type 2 diabetes mellitus with diabetic peripheral angiopathy without gangrene; N18.30 Chronic kidney disease, stage 3 unspecified; E03.9 Hypothyroidism, unspecified; K63.5 Polyp of colon; E11.22 Type 2 diabetes mellitus with diabetic chronic kidney disease; K21.9 Gastro-esophageal reflux disease without esophagitis; E78.00 Pure hypercholesterolemia, unspecified; G56.01 Carpal tunnel syndrome, right upper limb; K22.2 Esophageal obstruction; E87.6 Hypokalemia; W18.30XD Fall on same level, unspecified, subsequent encounter; F41.9 Anxiety disorder, unspecified; R13.12 Dysphagia, oropharyngeal phase; B96.1 Klebsiella pneumoniae [K. pneumoniae] as the cause of diseases classified elsewhere; R13.19 Other dysphagia; R09.02 Hypoxemia; R03.1 Nonspecific low blood-pressure reading; Y83.8 Other surgical procedures as the cause of abnormal reaction of the patient, or of later complication, without mention of misadventure at the time of the procedure; S52.532D Colles' fracture of left radius, subsequent encounter for closed fracture with routine healing; Z66 Do not resuscitate; R53.81 Other malaise; Z79.51 Long term (current) use of inhaled steroids; Z79.82 Long term (current) use of aspirin; Z79.02 Long term (current) use of antithrombotics/antiplatelets; Z87.891 Personal history of nicotine dependence; Z86.73 Personal history of transient ischemic attack (TIA), and cerebral infarction without residual deficits
CPT/HCPCS: 31500; 31720; 36569; 36600; 71045; 71250; 73110; 74176; 74230; 80048; 80053; 81001; 82274; 82550; 82803; 82962; 83605; 83735; 83880; 84100; 84145; 84478; 84484; 85025; 85027; 86850; 86900; 86901; 87040; 87070; 87077; 87086; 87088; 87186; 87205; 87631; 87641; 88305; 92526; 92610; 92611; 93005; 93306; 94002; 94003; 94640; 94660; 94667; 94668; 94762; 97110; 97116; 97162; 97166; 97530; 97535; 97802; 97803; 99252; 99285; J2185; J2997; Q9957; A4216; G0463; J0585; J0696; J1938; J2405